=== PATIENT | female | born 1970 | race Caucasian/White ===

== ENCOUNTER 2020-08-11 14:10 | Emergency (ER) | payer OTHER, SELFPAY ==
[2020-08-11 14:19] VITALS: BP 156/92; PULSE 88; RESP 22; TEMP 36.7; O2SAT 95; BMI 37.7
--- NOTE | 2020-08-11 14:25 | XR_ITS ---
EXAMINATION: XR CHEST CLINICAL INFORMATION: Shortness of breath and cough COMPARISON: Previous chest x-rays most recent May 2020 TECHNIQUE: Frontal view of the chest was obtained. FINDINGS: The cardiac and mediastinal contours are normal. The lungs are clear. There is no pleural effusion or pneumothorax. There are mild degenerative changes of the spine. IMPRESSION: No evidence for acute disease in the chest.
--- NOTE | 2020-08-11 14:25 | ECG_ITS ---
Test Reason : SOB Blood Pressure : / mmHG Vent. Rate : 078 BPM Atrial Rate : 078 BPM P-R Int : 132 ms QRS Dur : 084 ms QT Int : 394 ms P-R-T Axes : 044 047 028 degrees QTc Int : 449 ms Normal sinus rhythm RSR' or QR pattern in V1 suggests right ventricular conduction delay Nonspecific T wave abnormality Inferior leads When compared with ECG of 15-MAY-2020 14:23, No significant change was found Referred By: Lorenzo Laurent Electronically Signed By:CHIKA SLAUGHTER MD
--- NOTE | 2020-08-11 14:48 | ED_ITS ---
HPI - Psych General Chief Complaint: Psychiatric Symptoms Stated Complaint: si w/plan Time Seen by Provider: 08/11/20 14:25 Source: EMS Mode of arrival: ambulatory Limitations: no limitations History of Present Illness HPI Narrative: 50-year-old female who is well known to this facility for multiple reasons mostly psych related however she does have history of asthma, substance abuse, bipolar disorder, depressive disorder, preferred substance abuse of crack cocaine, hypertension, gastroesophageal reflux disease along with other history as noted below presenting today via EMS with complaint of suicidal ideation. States feeling increasing the +over the past couple days and feeling suicidal. No specific triggers today but plan to walk into traffic. She denies any illicit substance use today. No fever. No chills. Did have some cough and wheezing. MD complaint: suicidal ideation and feels depressed History of same: Yes Relieving factors: none Exacerbating factors: none Treatments prior to arrival: none Related Data Allergies Allergy/AdvReac Type Severity Reaction Status Date / Time aspirin [Aspirin] Allergy Severe HIVES,THROAT Unverified 07/17/20 17:00 SWELLS bee pollen [BEE STINGS] Allergy Severe ANAPHYLAXIS Unverified 07/17/20 17:00 diphenhydramine Allergy Severe hives, Unverified 07/17/20 17:00 [From BENADRYL ALLERGY] throat swells Penicillins [PCN] Allergy Severe HIVES Unverified 07/17/20 17:00 THROAT SWELLS Sulfa (Sulfonamide Allergy Intermediate HIVES Unverified 07/17/20 17:00 Antibiotics) [SULFA (SULFONAMIDE ANTIBIOTICS)] tramadol [TRAMADOL] Allergy Intermediate ITCHING Unverified 07/17/20 17:00 latex [LATEX] Allergy Unknown UNKNOWN Unverified 07/17/20 17:00 penicillin G Allergy Unknown Verified 07/17/18 00:00 lactose [LACTOSE] AdvReac Severe DIARRHEA Unverified 07/17/20 17:00 bee stings Allergy Unknown Uncoded 07/17/18 00:00 DAIRY PRODUCTS Allergy Unknown UNKNOWN Uncoded 07/17/20 17:00 DairyCare Allergy Unknown Uncoded 07/17/18 00:00 sulfa drugs Allergy Unknown Uncoded 07/17/18 00:00 From Lactaid AdvReac Mild DIARRHEA Uncoded 07/17/20 17:00 Review of Systems Review of Systems: Constitutional: No Weight loss, No Fever, No Chills, No Night Sweats, No Fatigue, No Malaise ENT/Mouth: No Hearing loss, No Ear Pain, No Nasal Congestion, No Sinus Pain, No Hoarseness, No sore throat, No Rhinorrhea, No Swallowing Difficulty Eyes: No Eye Pain, No Swelling, No Redness, No Foreign Body, No Discharge, No Vision Changes Cardiovascular: No Chest Pain, No SOB, No Dyspnea on Exertion, No Orthopnea, No Edema, No Palpitations Respiratory: + Cough, No Sputum, + Wheezing, No Smoke Exposure, No Dyspnea Gastrointestinal: No Nausea, No Vomiting, No Diarrhea, No Constipation, No abdominal Pain, No Hematochezia, No Melena Genitourinary: no irregular bleeding, No Dysuria, No Urinary Frequency, No Hematuria, No Urinary Incontinence, No Urgency, No Flank Pain, No Urinary Flow Changes, No Hesitancy Musculoskeletal: No joint pain, No Myalgias, No Joint Swelling Skin: No Skin Lesions, No rash Neuro: No Weakness, No Numbness, No Paresthesias, No Loss of Consciousness, No Dizziness, No Headache Psych: No Anxiety/Panic, No Depression, No SI/HI/AH/VH, No Social Issues, Heme/Lymph: No Bruising, No Bleeding,No Lymphadenopathy Endocrine: No Polyuria, No Polydipsia, No Temperature Intolerance Yes all other systems are reviewed and are negative [facility] Past Medical History Attestation statement: The following information was validated with the patient. Medical History (Updated 08/11/20 @ 18:30 by Lorenzo Laurent NP) Bipolar disorder COPD (chronic obstructive pulmonary disease) Depression Social History Social History Alcohol intake: unknown Smoking Status: Unknown if ever smoked Use of substances other than those prescribed or required for medical reasons: Unknown Advance Directives: No Advance Directives Information Provided: No Physical Exam Vital Signs: Vital Signs: Vital Signs Temp Pulse Resp BP Pulse Ox 08/11/20 17:16 88 95 H 08/11/20 14:19 98.0 F 88 22 H 156/92 H 95 Body Mass Index 37.7 Const: Other: Slightly anxious appearing General: cooperative and healthy appearing; No acute distress or intoxicated appearing Nutritional Appearance: average body habitus Orientation/consciousness: patient oriented x3 HENMT: Head: Yes normal to inspection Ears: hearing grossly normal bilaterally Eyes: General: appearance normal, both eyes and all related structures Visual Rodarte: normal visual rodarte by confrontation Neck: Neck: Yes normal visual inspection and No tender Thyroid: Thyroid normal Chest: Chest palpation & inspection: normal inspection of the chest Resp: Effort & Inspection: normal respiratory effort Cardio: Jugular venous distension: no JVD GI: Inspection: Yes normal to inspection Percussion: Yes normal to percussion Auscultation: normal bowel sounds : General: Yes no CVA tenderness Back/Spine/Pelvis: Back: no CVA tenderness Skin: General skin exam: no rashes or lesions noted Neuro: General: patient oriented x3 Extrem: General: Yes normal to inspection Course Reevaluation(s) Reevaluation #1: slight 4 seconds story wheezing upon arrival more anxious. Vague SI. Workup unremarkable. Chest x-ray negative. Lung sounds clear to auscultation after neb. She was evaluated by Care Team and cleared for discharge. She denies any SI or HI. Feels much more comfortable now speaking to us. Is future oriented. Has appointment coming up with her therapist and GB. Care team will assist her in getting right back. Stable for discharge. Consultations Consultation #1: Evaluate by care team MDM - Psych Restraints Face to Face Assessment: Face to Face Assessment: Current Situation: After assessment of the patient, a review of the pertinent medical record and a discussion with nursing staff, I feel the patient requires a restrain intervention. Reaction To: [] Medical Condition: [] Behavioral State: [] Continued Need: [] Lab Data Result diagrams: 08/11/20 15:04 08/11/20 15:05 Labs: Lab Results 08/11/20 08/11/20 08/11/20 Range/Units 15:04 15:04 15:05 WBC 5.4 (4.8-10.8) X10*3/uL RBC 4.30 (4.20-5.50) X10*6/uL Hgb 12.5 (12.0-16.0) g/dl Hct 39.0 (37-47) % MCV 90.7 (80-98) fL MCH 29.1 (27.0-33.0) pg MCHC 32.1 (31.0-35.0) g/dl RDW 13.2 (11.0-16.0) % Plt Count 251 (160-400) X10*3/uL MPV 10.3 (9.4-12.3) fL Immature Gran % (Auto) 0.2 (0.0-0.4) % Neut % (Auto) 51.0 (45-73) % Lymph % (Auto) 40.3 H (20-40) % [place] % (Auto) 6.5 (2-11) % Eos % (Auto) 1.1 (0-4) % Baso % (Auto) 0.9 (0-2) % Lymph # (Auto) 2.2 (1.2-4.9) X10*3/uL [place] # (Auto) 0.4 (0.1-1.2) X10*3/uL Eos # (Auto) 0.1 (0.0-0.4) X10*3/uL Baso # (Auto) 0.1 (0.0-0.2) X10*3/uL Abs Immat Gran (auto) 0.01 (0.00-0.03) X10*3/uL Absolute Neuts (auto) 2.7 (2.0-8.3) X10*3/uL Absolute Nucleated RBC 0.000 (0.0-0.012) X10*3/uL Nucleated RBC % (auto) 0.0 (0.0-0.2) /100WBC Sodium 143 (135-145) mmol/L Potassium 4.3 (3.3-5.1) mmol/l Chloride 108 (96-108) mmol/L Carbon Dioxide 27 (22-29) mmol/L Anion Gap 12 (12-20) BUN 21 H (9-16) mg/dL Creatinine 0.69 (0.5-1.4) mg/dL Estim Creat Clear Calc 121.4 Estimated GFR > 60 Random Glucose 87 (60-115) mg/dL Calcium 9.3 (8.4-10.2) mg/dL Total Bilirubin 0.4 (0.0-1.0) mg/dL AST 14 (5-31) U/L ALT 14 (0-31) U/L Alkaline Phosphatase 81 (39-117) U/L Troponin I High Sens < 3.5 (<3.5-17.0) ng/L Total Protein 6.4 L (6.5-8.0) g/dL Albumin 4.3 (3.5-5.0) g/dL Salicylates < 5.0 L (15-30) mg/dL Urine Opiates Screen (Not Detect) Acetaminophen < 1 (<30) mcg/mL Ur Barbiturates Screen (Not Detect) Ur Phencyclidine Scrn (Not Detect) Ur Amphetamines Screen (Not Detect) U Benzodiazepines Scrn (Not Detect) Urine Cocaine Screen (Not Detect) U Marijuana (THC) Screen (Not Detect) Ethyl Alcohol mg/dL Coronavirus (PCR) (Negative) Influenza Type A (PCR) Influenza Type B (PCR) Influenza A & B Note RSV RNA Qual (PCR) 08/11/20 08/11/20 08/11/20 Range/Units 15:05 15:05 16:01 WBC (4.8-10.8) X10*3/uL RBC (4.20-5.50) X10*6/uL Hgb (12.0-16.0) g/dl Hct (37-47) % MCV (80-98) fL MCH (27.0-33.0) pg MCHC (31.0-35.0) g/dl RDW (11.0-16.0) % Plt Count (160-400) X10*3/uL MPV (9.4-12.3) fL Immature Gran % (Auto) (0.0-0.4) % Neut % (Auto) (45-73) % Lymph % (Auto) (20-40) % [place] % (Auto) (2-11) % Eos % (Auto) (0-4) % Baso % (Auto) (0-2) % Lymph # (Auto) (1.2-4.9) X10*3/uL [place] # (Auto) (0.1-1.2) X10*3/uL Eos # (Auto) (0.0-0.4) X10*3/uL Baso # (Auto) (0.0-0.2) X10*3/uL Abs Immat Gran (auto) (0.00-0.03) X10*3/uL Absolute Neuts (auto) (2.0-8.3) X10*3/uL Absolute Nucleated RBC (0.0-0.012) X10*3/uL Nucleated RBC % (auto) (0.0-0.2) /100WBC Sodium (135-145) mmol/L Potassium (3.3-5.1) mmol/l Chloride (96-108) mmol/L Carbon Dioxide (22-29) mmol/L Anion Gap (12-20) BUN (9-16) mg/dL Creatinine (0.5-1.4) mg/dL Estim Creat Clear Calc Estimated GFR Random Glucose (60-115) mg/dL Calcium (8.4-10.2) mg/dL Total Bilirubin (0.0-1.0) mg/dL AST (5-31) U/L ALT (0-31) U/L Alkaline Phosphatase (39-117) U/L Troponin I High Sens (<3.5-17.0) ng/L Total Protein (6.5-8.0) g/dL Albumin (3.5-5.0) g/dL Salicylates (15-30) mg/dL Urine Opiates Screen Not Detected (Not Detect) Acetaminophen (<30) mcg/mL Ur Barbiturates Screen Not Detected (Not Detect) Ur Phencyclidine Scrn Not Detected (Not Detect) Ur Amphetamines Screen Not Detected (Not Detect) U Benzodiazepines Scrn Not Detected (Not Detect) Urine Cocaine Screen Not Detected (Not Detect) U Marijuana (THC) Screen Not Detected (Not Detect) Ethyl Alcohol < 10 mg/dL Coronavirus (PCR) (Negative) Influenza Type A (PCR) Cancelled Influenza Type B (PCR) Cancelled Influenza A & B Note Cancelled RSV RNA Qual (PCR) Cancelled 08/11/20 Range/Units 16:01 WBC (4.8-10.8) X10*3/uL RBC (4.20-5.50) X10*6/uL Hgb (12.0-16.0) g/dl Hct (37-47) % MCV (80-98) fL MCH (27.0-33.0) pg MCHC (31.0-35.0) g/dl RDW (11.0-16.0) % Plt Count (160-400) X10*3/uL MPV (9.4-12.3) fL Immature Gran % (Auto) (0.0-0.4) % Neut % (Auto) (45-73) % Lymph % (Auto) (20-40) % [place] % (Auto) (2-11) % Eos % (Auto) (0-4) % Baso % (Auto) (0-2) % Lymph # (Auto) (1.2-4.9) X10*3/uL [place] # (Auto) (0.1-1.2) X10*3/uL Eos # (Auto) (0.0-0.4) X10*3/uL Baso # (Auto) (0.0-0.2) X10*3/uL Abs Immat Gran (auto) (0.00-0.03) X10*3/uL Absolute Neuts (auto) (2.0-8.3) X10*3/uL Absolute Nucleated RBC (0.0-0.012) X10*3/uL Nucleated RBC % (auto) (0.0-0.2) /100WBC Sodium (135-145) mmol/L Potassium (3.3-5.1) mmol/l Chloride (96-108) mmol/L Carbon Dioxide (22-29) mmol/L Anion Gap (12-20) BUN (9-16) mg/dL Creatinine (0.5-1.4) mg/dL Estim Creat Clear Calc Estimated GFR Random Glucose (60-115) mg/dL Calcium (8.4-10.2) mg/dL Total Bilirubin (0.0-1.0) mg/dL AST (5-31) U/L ALT (0-31) U/L Alkaline Phosphatase (39-117) U/L Troponin I High Sens (<3.5-17.0) ng/L Total Protein (6.5-8.0) g/dL Albumin (3.5-5.0) g/dL Salicylates (15-30) mg/dL Urine Opiates Screen (Not Detect) Acetaminophen (<30) mcg/mL Ur Barbiturates Screen (Not Detect) Ur Phencyclidine Scrn (Not Detect) Ur Amphetamines Screen (Not Detect) U Benzodiazepines Scrn (Not Detect) Urine Cocaine Screen (Not Detect) U Marijuana (THC) Screen (Not Detect) Ethyl Alcohol mg/dL Coronavirus (PCR) NEGATIVE (Negative) Influenza Type A (PCR) Influenza Type B (PCR) Influenza A & B Note RSV RNA Qual (PCR) Imaging Data Chest x-ray: Attestation: I personally reviewed and interpreted this imaging study as follows: Radiologist's impression: [address] [address] XRay Report Signed Patient: Meli Garza#: [id number] : 1970Acct:[id number] Age/Sex: 50 / FADM Date: 08/11/20 Loc: HO.ED Attending Dr: Ordering Physician: Lorenzo Laurent NP Date of Service: 08/11/20 Procedure(s): XR chest 1V Accession Number(s): [id number] cc: Lorenzo Laurent ACCOUNT ADVISOR~ EXAMINATION: XR CHEST CLINICAL INFORMATION: Shortness of breath and cough COMPARISON: Previous chest x-rays most recent May 2020 TECHNIQUE: Frontal view of the chest was obtained. FINDINGS: The cardiac and mediastinal contours are normal. The lungs are clear. There is no pleural effusion or pneumothorax. There are mild degenerative changes of the spine. IMPRESSION: No evidence for acute disease in the chest. Dictated By:MARY GAUTAM MD Signed By:<Electronically signed by MARY GAUTAM MD in OV>08/11/20 1446 DD/ 1425 TD/TT: Pulverizing And Sifting Operator: MINO Discharge Plan Discharge Clinical Impression: Bipolar disorder, Acute anxiety Patient Disposition: Home, Self-Care Instructions: Bipolar Disorder (ED), Anxiety (ED)
[2020-08-11 15:17] LABS: MANUAL DIFF FLAG NO
[2020-08-11 15:19] LABS: Basophils Absolute Auto 0.1 X10*3/uL (0.0-0.2); Basophils Percent Auto 0.9 % (0-2); Eosinophils Absolute Auto 0.1 X10*3/uL (0.0-0.4); Eosinophils Percent Auto 1.1 % (0-4); Hemoglobin 12.5 g/dl (12.0-16.0); Imm Gran Abs Auto 0.01 X10*3/uL (0.00-0.03); Imm Gran Pct Auto 0.2 % (0.0-0.4); Lymphocytes Absolute Auto 2.2 X10*3/uL (1.2-4.9); Lymphocytes Percent Auto 40.3 % (20-40); Mean Corpuscular HGB Conc 32.1 g/dl (31.0-35.0); Mean Corpuscular Hemoglobin 29.1 pg (27.0-33.0); Mean Corpuscular Volume 90.7 fL (80-98); Mean Platelet Volume 10.3 fL (9.4-12.3); Monocytes Absolute Auto 0.4 X10*3/uL (0.1-1.2); Monocytes Percent Auto 6.5 % (2-11); Neutrophils Absolute Auto 2.7 X10*3/uL (2.0-8.3); Platelet Count 251 X10*3/uL (160-400); Red Cell Distribution Width 13.2 % (11.0-16.0); White Blood Count 5.4 X10*3/uL (4.8-10.8)
[2020-08-11 15:41] LABS: Ethanol < 10 mg/dL
[2020-08-11 15:43] LABS: Amphetamine Screen Urine Not Detected (Not Detect); Barbiturates, Urine Not Detected (Not Detect); Benzodiazepines Screen Urine Not Detected (Not Detect); Cannabinoid Screen Urine Not Detected (Not Detect); Cocaine Screen Urine Not Detected (Not Detect); Opiate Screen Urine Not Detected (Not Detect); Phencyclidine Screen Urine Not Detected (Not Detect)
[2020-08-11 15:47] LABS: Troponin-I High Sensitivity < 3.5 ng/L (<3.5-17.0)
[2020-08-11 15:54] LABS: Acetaminophen LAB < 1 mcg/mL (<30); Alanine Aminotransferase 14 U/L (0-31); Albumin Level 4.3 g/dL (3.5-5.0); Alkaline Phosphatase 81 U/L (39-117); Anion Gap 12 (12-20); Aspartate Amino Transferase 14 U/L (5-31); Bilirubin Total 0.4 mg/dL (0.0-1.0); Blood Urea Nitrogen 21 mg/dL (9-16); Calcium 9.3 mg/dL (8.4-10.2); Carbon Dioxide 27 mmol/L (22-29); Chloride 108 mmol/L (96-108); Creatinine Clr Calc Pharmacy 121.4; Estimated Glomerular Filt Rate > 60; Glucose Random 87 mg/dL (60-115); Potassium 4.3 mmol/l (3.3-5.1); Sodium 143 mmol/L (135-145); Total Protein 6.4 g/dL (6.5-8.0)
[2020-08-11] MEDS: Albuterol/Iprat 2.5/0.5MG 3 ML AMPUL.NEB INHALE (15:54)
[2020-08-11 16:08] LABS: Salicylate < 5.0 mg/dL (15-30)
[2020-08-11 17:04] LABS: SARS COV2 PCR INHOUSE NEGATIVE (Negative)
[2020-08-11 17:16] VITALS: PULSE 88; RESP 95
--- NOTE | 2020-08-11 17:57 | PC.NURSE ---
Ambulatory to 13h. wheezy and sob while ambulating. sa o2 93% just after ambulating. risees to 96% on room air whie at rest. recovers quickly. NC HELD. AWAITING BED IN THE POD. CALM AND COOPERATIVE. SITTER AT BEDSIDE.
--- NOTE | 2020-08-11 18:29 | MHC.CARE ---
CARE team consult requested for 50 year old female who presented to ED endorsing shortness of breath and suicidal ideation secondary to conflict with family. 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 Pt stated that she felt crummy earlier, but is feeling much better now after receiving a breathing treatment and having some time to think about the situation. Pt denied any current thoughts of or suicide, and denied recent urges to attempts to harm self or others. Pt's housing is considered stable at this time and pt is connected with outpatient behavioral health supports through [facility]. Pt has been compliant with medications and feels that her medications are effective. Pt has an appt with her psychiatrist (Dr. Recinos) next week and plans to contact her therapist (Chante Miller) to schedule a session as she hasn't spoken with her since before the therapist went on vacation. Pt feels comfortable returning home at this time. ED provider was consulted and is in agreement with the decision to discharge pt home. Edmundo Aranda contacted, cab arrival around 7:30, voucher completed, and pt will discharge to waiting room.
== END 2020-08-11 19:08 | disposition home or self-care (01) ==
PROVIDERS: Nurse Practitioner Primary Care; Emergency Provider Internal Medicine; PCP Internal Medicine
DX: F31.9 Bipolar disorder, unspecified (principal); F41.9 Anxiety disorder, unspecified; R06.02 Shortness of breath; Z20.828 Contact with and (suspected) exposure to other viral communicable diseases; F14.10 Cocaine abuse, uncomplicated
CPT/HCPCS: 36415; 71045; 80053; 80307; 80320; 84484; 85025; 87635; 93005; 99284; G0480

== ENCOUNTER 2020-10-07 14:35 | Inpatient (IN) | payer MEDICAID, OTHER, SELFPAY ==
[2020-10-07] VITALS (7 sets, daily range): BP systolic 109–162; BP diastolic 63–85; PULSE 71–82; RESP 16–20; TEMP 36.8–36.9; O2SAT 90–100; BMI 37.4
--- NOTE | 2020-10-07 14:42 | ECG_ITS ---
Test Reason : OVERDOSE Blood Pressure : / mmHG Vent. Rate : 076 BPM Atrial Rate : 076 BPM P-R Int : 154 ms QRS Dur : 084 ms QT Int : 388 ms P-R-T Axes : 037 018 009 degrees QTc Int : 436 ms Normal sinus rhythm Nonspecific T wave abnormality Abnormal ECG When compared with ECG of 11-AUG-2020 14:45, Nonspecific T wave abnormality, worse in Anterior leads Referred By: Arina Polanco Electronically Signed By:ALEJANDRO MCCLELLAN
--- NOTE | 2020-10-07 14:46 | ED_ITS ---
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 Denies any other drugs/substance or EtOH ingestion. Patient reports SI and HI. Admits to feeling fatigued at present, and also chronic SOB and chronic cough. Denies fever, chills, nausea/vomiting, abdominal pain, recent travel, LE edema. MD complaint: suicidal ideation, feels depressed and homicidal ideation Related Data Allergies Allergy/AdvReac Type Severity Reaction Status Date / Time aspirin [Aspirin] Allergy Severe HIVES,THROAT Unverified 07/17/20 17:00 SWELLS bee pollen [BEE STINGS] Allergy Severe ANAPHYLAXIS Unverified 07/17/20 17:00 diphenhydramine Allergy Severe hives, Unverified 07/17/20 17:00 [From BENADRYL ALLERGY] throat swells Penicillins [PCN] Allergy Severe HIVES Unverified 07/17/20 17:00 THROAT SWELLS Sulfa (Sulfonamide Allergy Intermediate HIVES Unverified 07/17/20 17:00 Antibiotics) [SULFA (SULFONAMIDE ANTIBIOTICS)] tramadol [TRAMADOL] Allergy Intermediate ITCHING Unverified 07/17/20 17:00 latex [LATEX] Allergy Unknown UNKNOWN Unverified 07/17/20 17:00 penicillin G Allergy Unknown Verified 07/17/18 00:00 lactose [LACTOSE] AdvReac Severe DIARRHEA Unverified 07/17/20 17:00 bee stings Allergy Unknown Uncoded 07/17/18 00:00 DAIRY PRODUCTS Allergy Unknown UNKNOWN Uncoded 07/17/20 17:00 DairyCare Allergy Unknown Uncoded 07/17/18 00:00 sulfa drugs Allergy Unknown Uncoded 07/17/18 00:00 From Lactaid AdvReac Mild DIARRHEA Uncoded 07/17/20 17:00 Review of Systems Review of Systems: Constitutional: No Weight loss, No Fever, No Chills, +Fatigue, + Malaise Cardiovascular: No Chest Pain, +chronic SOB, No Dyspnea on Exertion, No Edema Respiratory: +chronic Cough, No Sputum, No Wheezing Gastrointestinal: No Nausea, No Vomiting, No Diarrhea, No Constipation, No Abdominal pain Genitourinary: No irregular bleeding, No Dysuria, No Urinary Frequency, No Hematuria Musculoskeletal: No joint pain, No Myalgias, No Joint Swelling Skin: No Skin Lesions, No rash Psych: No Anxiety/Panic, +Depression, + SI/HI Yes all other systems are reviewed and are negative [facility] Past Medical History Attestation statement: The following information was validated with the patient. Medical History (Updated 10/07/20 @ 15:12 by LASHONDA Diamond) Bipolar disorder COPD (chronic obstructive pulmonary disease) Depression Social History Social History Alcohol intake: unknown Smoking Status: Unknown if ever smoked Smoked in Last 30 Days: No Use of substances other than those prescribed or required for medical reasons: No Advance Directives: No Advance Directives Information Provided: Yes Physical Exam Vital Signs: Vital Signs: Last Vital Signs Temp 98.4 F 10/07/20 14:40 Pulse 78 10/07/20 15:08 Resp 16 10/07/20 14:40 BP 134/83 10/07/20 14:40 Pulse Ox 100 10/07/20 14:40 Body Mass Index 37.4 Const: Other: uncooperative Orientation/consciousness: patient oriented x3 Limitations: no limitations HENMT: Head: Yes normal to inspection Ears: hearing grossly normal bilaterally General nose exam: Normal external nose present Face and sinus: Yes normal facial exam Eyes: General: appearance normal, both eyes and all related structures EOM: EOMs intact bilaterally Neck: Neck: Yes normal visual inspection and Yes no meningeal signs Resp: Other: coarse lung sounds Effort & Inspection: normal respiratory effort Auscultation: clear to auscultation bilaterally and wheezes expiratory wheezes and scattered wheezes Cardio: Rate: regular rate Heart sounds: S1 normal heart sound present and S2 normal heart sound present GI: Inspection: Yes normal to inspection Palpation (GI): Soft to palpation, nontender, no guarding and not rigid Skin: Rashes: no rashes Wounds: no wounds Neuro: General: patient oriented x3 and no meningeal signs Gait exam (Neuro): Normal gait present Extrem: General: Yes normal to inspection Psych: Thought content: Suicidality present, Homicidality present and Depressive thoughts present Course Course Course Narrative: -1505--patient refusing activated charcoal, multiple attempts/different people tried discussing with patient to convince her to take activated charcoal but unsuccessful -Labs unremarkable, salicylates and ethanol negative, acetaminophen pending --1700--ED care transferred to LASHONDA zhou pending acetaminophen level, repeat acetaminophen level 4 hours after ingestion, and BHN evaluation MDM - Psych Restraints Face to Face Assessment: 50-year-old female w/PMHx asthma, substance abuse, bipolar disorder, depressive disorder, substance abuse, HTN, GERD, BIBA s/p suicide attempt with an overdose on 15, 500mg of Tylenol twenty 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 +SI + HI. Also chronic SOB and chronic cough. On exam VSS, NAD, lungs with coarse sounds and expiratory wheeze, abdomen soft/non-tender. Concern for Tylenol OD vs polysubstance abuse. Concern for COPD exacerbation. R/o PNA. Low concern for COVID-19 with negative test 2 months ago Plan: EKG, labs, UA, JOE, CXR, Duoneb, Tylenol/Salicylates, activated charcoal, Repeat Tylenol level in 4hrs Lab Data Result diagrams: 10/07/20 15:47 10/07/20 15:47 Labs: Lab Results 10/07/20 10/07/20 10/07/20 Range/Units 15:46 15:47 15:47 WBC 7.2 (4.8-10.8) X10*3/uL RBC 4.84 (4.20-5.50) X10*6/uL Hgb 14.4 (12.0-16.0) g/dl Hct 43.6 (37-47) % MCV 90.1 (80-98) fL MCH 29.8 (27.0-33.0) pg MCHC 33.0 (31.0-35.0) g/dl RDW 12.5 (11.0-16.0) % Plt Count 262 (160-400) X10*3/uL MPV 10.3 (9.4-12.3) fL Immature Gran % (Auto) 0.3 (0.0-0.4) % Neut % (Auto) 50.5 (45-73) % Lymph % (Auto) 41.5 H (20-40) % [place] % (Auto) 6.6 (2-11) % Eos % (Auto) 0.4 (0-4) % Baso % (Auto) 0.7 (0-2) % Lymph # (Auto) 3.0 (1.2-4.9) X10*3/uL [place] # (Auto) 0.5 (0.1-1.2) X10*3/uL Eos # (Auto) 0.0 (0.0-0.4) X10*3/uL Baso # (Auto) 0.1 (0.0-0.2) X10*3/uL Abs Immat Gran (auto) 0.02 (0.00-0.03) X10*3/uL Absolute Neuts (auto) 3.6 (2.0-8.3) X10*3/uL Absolute Nucleated RBC 0.000 (0.0-0.012) X10*3/uL Nucleated RBC % (auto) 0.0 (0.0-0.2) /100WBC Hold Blue Top Sodium 139 (135-145) mmol/L Potassium 4.2 (3.3-5.1) mmol/l Chloride 103 (96-108) mmol/L Carbon Dioxide 25 (22-29) mmol/L Anion Gap 15 (12-20) BUN 15 (9-16) mg/dL Creatinine 0.67 (0.5-1.4) mg/dL Estim Creat Clear Calc 120.3 Estimated GFR > 60 Random Glucose 116 H (60-115) mg/dL Calcium 9.3 (8.4-10.2) mg/dL Magnesium 2.0 (1.6-2.6) mg/dL Total Bilirubin 0.3 (0.0-1.0) mg/dL Direct Bilirubin < 0.2 (0.0-0.5) mg/dL AST 15 (5-31) U/L ALT 17 (0-31) U/L Alkaline Phosphatase 88 (39-117) U/L Total Protein 7.0 (6.5-8.0) g/dL Albumin 4.5 (3.5-5.0) g/dL Lipase 31 (8-78) U/L Salicylates < 5.0 L (15-30) mg/dL Urine Opiates Screen Not Detected (Not Detect) Ur Barbiturates Screen Not Detected (Not Detect) Ur Phencyclidine Scrn Not Detected (Not Detect) Ur Amphetamines Screen Not Detected (Not Detect) U Benzodiazepines Scrn Not Detected (Not Detect) Urine Cocaine Screen Not Detected (Not Detect) U Marijuana (THC) Screen Not Detected (Not Detect) Ethyl Alcohol mg/dL COVID-19 (ENDY) (Negative) COVID-19 Clin Com 10/07/20 10/07/20 10/07/20 Range/Units 15:47 15:47 15:51 WBC (4.8-10.8) X10*3/uL RBC (4.20-5.50) X10*6/uL Hgb (12.0-16.0) g/dl Hct (37-47) % MCV (80-98) fL MCH (27.0-33.0) pg MCHC (31.0-35.0) g/dl RDW (11.0-16.0) % Plt Count (160-400) X10*3/uL MPV (9.4-12.3) fL Immature Gran % (Auto) (0.0-0.4) % Neut % (Auto) (45-73) % Lymph % (Auto) (20-40) % [place] % (Auto) (2-11) % Eos % (Auto) (0-4) % Baso % (Auto) (0-2) % Lymph # (Auto) (1.2-4.9) X10*3/uL [place] # (Auto) (0.1-1.2) X10*3/uL Eos # (Auto) (0.0-0.4) X10*3/uL Baso # (Auto) (0.0-0.2) X10*3/uL Abs Immat Gran (auto) (0.00-0.03) X10*3/uL Absolute Neuts (auto) (2.0-8.3) X10*3/uL Absolute Nucleated RBC (0.0-0.012) X10*3/uL Nucleated RBC % (auto) (0.0-0.2) /100WBC Hold Blue Top SEE NOTE Sodium (135-145) mmol/L Potassium (3.3-5.1) mmol/l Chloride (96-108) mmol/L Carbon Dioxide (22-29) mmol/L Anion Gap (12-20) BUN (9-16) mg/dL Creatinine (0.5-1.4) mg/dL Estim Creat Clear Calc Estimated GFR Random Glucose (60-115) mg/dL Calcium (8.4-10.2) mg/dL Magnesium (1.6-2.6) mg/dL Total Bilirubin (0.0-1.0) mg/dL Direct Bilirubin (0.0-0.5) mg/dL AST (5-31) U/L ALT (0-31) U/L Alkaline Phosphatase (39-117) U/L Total Protein (6.5-8.0) g/dL Albumin (3.5-5.0) g/dL Lipase (8-78) U/L Salicylates (15-30) mg/dL Urine Opiates Screen (Not Detect) Ur Barbiturates Screen (Not Detect) Ur Phencyclidine Scrn (Not Detect) Ur Amphetamines Screen (Not Detect) U Benzodiazepines Scrn (Not Detect) Urine Cocaine Screen (Not Detect) U Marijuana (THC) Screen (Not Detect) Ethyl Alcohol < 10 mg/dL COVID-19 (ENDY) Negative (Negative) COVID-19 Clin Com See Note Discharge Plan Discharge Clinical Impression: Suicide attempt, Homicidal ideations
--- NOTE | 2020-10-07 14:56 | XR_ITS ---
EXAMINATION: XR CHEST CLINICAL INFORMATION: Shortness of breath COMPARISON: Previous chest x-ray July 2020 TECHNIQUE: Frontal view of the chest was obtained. FINDINGS: The cardiac and mediastinal contours are normal. The lungs are clear. There is no pleural effusion or pneumothorax. There are degenerative changes of the spine. XR/XR chest 1V IMPRESSION: No evidence for acute disease in the chest.
[2020-10-07] MEDS: Albuterol/Iprat 2.5/0.5MG 3 ML AMPUL.NEB INHALE (15:06)
--- NOTE | 2020-10-07 15:50 | PC.NURSE ---
patient refused medication, provider aware.
[2020-10-07 16:03] LABS: MANUAL DIFF FLAG NO
[2020-10-07 16:07] LABS: Basophils Absolute Auto 0.1 X10*3/uL (0.0-0.2); Basophils Percent Auto 0.7 % (0-2); Eosinophils Percent Auto 0.4 % (0-4); Hematocrit 43.6 % (37-47); Hemoglobin 14.4 g/dl (12.0-16.0); Imm Gran Abs Auto 0.02 X10*3/uL (0.00-0.03); Imm Gran Pct Auto 0.3 % (0.0-0.4); Lymphocytes Percent Auto 41.5 % (20-40); Mean Corpuscular Hemoglobin 29.8 pg (27.0-33.0); Mean Corpuscular Volume 90.1 fL (80-98); Mean Platelet Volume 10.3 fL (9.4-12.3); Monocytes Absolute Auto 0.5 X10*3/uL (0.1-1.2); Monocytes Percent Auto 6.6 % (2-11); Neutrophils Absolute Auto 3.6 X10*3/uL (2.0-8.3); Neutrophils Percent Auto 50.5 % (45-73); Platelet Count 262 X10*3/uL (160-400); Red Blood Count 4.84 X10*6/uL (4.20-5.50); Red Cell Distribution Width 12.5 % (11.0-16.0); White Blood Count 7.2 X10*3/uL (4.8-10.8)
[2020-10-07 16:21] LABS: COVID-19 Test Negative (Negative); IDNOW Serial# 9DD0AD1C
[2020-10-07 16:31] LABS: Ethanol < 10 mg/dL
[2020-10-07 16:36] LABS: Amphetamine Screen Urine Not Detected (Not Detect); Barbiturates, Urine Not Detected (Not Detect); Benzodiazepines Screen Urine Not Detected (Not Detect); Cannabinoid Screen Urine Not Detected (Not Detect); Cocaine Screen Urine Not Detected (Not Detect); Opiate Screen Urine Not Detected (Not Detect); Phencyclidine Screen Urine Not Detected (Not Detect)
[2020-10-07 16:47] LABS: Alanine Aminotransferase 17 U/L (0-31); Albumin Level 4.5 g/dL (3.5-5.0); Alkaline Phosphatase 88 U/L (39-117); Anion Gap 15 (12-20); Aspartate Amino Transferase 15 U/L (5-31); Bilirubin Direct < 0.2 mg/dL (0.0-0.5); Bilirubin Total 0.3 mg/dL (0.0-1.0); Blood Urea Nitrogen 15 mg/dL (9-16); Calcium 9.3 mg/dL (8.4-10.2); Carbon Dioxide 25 mmol/L (22-29); Chloride 103 mmol/L (96-108); Creatinine Clr Calc Pharmacy 120.3; Estimated Glomerular Filt Rate > 60; Glucose Random 116 mg/dL (60-115); Lipase 31 U/L (8-78); Potassium 4.2 mmol/l (3.3-5.1); Salicylate < 5.0 mg/dL (15-30); Sodium 139 mmol/L (135-145)
[2020-10-07 17:13] LABS: Acetaminophen LAB 66 mcg/mL (<30)
[2020-10-07] MEDS: 0.9 % Sodium Chloride 1,000 ML 999 ML IVCONT (17:46)
[2020-10-07 18:03] LABS: Prothrombin Time 11.7 SEC (10.8-13.0)
[2020-10-07 18:05] LABS: Partial Thromboplastin Time 24.8 SEC (24.1-38.0)
[2020-10-07 18:08] LABS: UPreg QC Valid YES; Urine Pregnancy NEGATIVE (NEGATIVE)
[2020-10-07] MEDS: Metoclopramide HCl 10 MG/2 ML VIAL IVPUSH (18:44)
[2020-10-07 19:54] LABS: Acetaminophen LAB 18 mcg/mL (<30)
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
--- NOTE | 2020-10-07 21:00 | PC.NURSE ---
per poision control, due to pt having ingested tylenol longer than 4hrs, patient is considered non-toxic and is now cleared to psych. karina moran is in agreement.
--- NOTE | 2020-10-07 21:03 | PC.NURSE ---
report faxed to n
--- NOTE | 2020-10-07 21:07 | PC.NURSE ---
julian called and still waiting to receive the fax at this time per Rafael.
--- NOTE | 2020-10-07 21:42 | PC.NURSE ---
recalled [facility] to check to see if report has been received, on hold for long time. will try back,
--- NOTE | 2020-10-07 21:50 | PC.NURSE ---
fax received. and confirmed.
--- NOTE | 2020-10-07 23:02 | PC.NURSE ---
pt sleeping sitter present. skin pink warm and dry, no s/s of resp distress.
[2020-10-08 00:30] VITALS: BP 101/57; PULSE 65; RESP 16; O2SAT 91
--- NOTE | 2020-10-08 01:31 | MHC.CARE ---
10/07/2020 @ 23:15 CARE team followed up with [facility] re: pt being referred for evaluation earlier in the evening. [facility] staff, Isabel, reported that in their shift change note that it was documented that pt had been medically admitted to the hospital. This screen writer corrected the information, insisting that the pt was sleeping soundly in the ED, medically cleared, and ready for assessment. Isabel reported that she would follow up with the furnace process supervisor about a clinician being assigned to evaluate the pt. then would call the ED to update re: estimated arrival for a clinician. 10/08/2020 @ 1:15 CARE team contacted [facility] again, after having not heard back, to inquire about the status of pt being assigned a clinician for evaluation. Jud answered, and after a long period of time on hold reported that the furnace process supervisor would have a clinician contact the ED to speak with the pt's nurse and come for assessment.
[2020-10-08 04:56] VITALS: BP 115/73; PULSE 66; RESP 16; TEMP 36.9; O2SAT 93
--- NOTE | 2020-10-08 05:16 | PC.NURSE ---
nurse to nurse report given to anish bundy in the pod. pt is medically cleared to be moved to [facility]
--- NOTE | 2020-10-08 07:22 | PC.NURSE ---
pt report taken from smitha vazquez rn. pt brought in yesterday via ambulance for stated overdose of 15 500 mg tylenol. sdection 12 by pd. Pt worked up in Main ed and sent to pod after med clearance. Pt eating breakfast at this time. Overall in good spirits. Pt states meds have been getting filled at [facility] on [address] in [place]. Will confirm. Pt currently in nad at this time. N aware of patient and will see patient today. Unknown ETA.
[2020-10-08 08:00] VITALS: BP 133/72; PULSE 75; RESP 15; TEMP 37.2; O2SAT 94
--- NOTE | 2020-10-08 08:29 | PC.NURSE ---
[facility] at bedside
--- NOTE | 2020-10-08 08:58 | PC.NURSE ---
pharmacy called and aware of need for med reconciliation
--- NOTE | 2020-10-08 11:27 | PC.NURSE ---
pt to bathroom to shower.
--- NOTE | 2020-10-08 11:29 | PC.NURSE ---
plan for patient to go to [facility]
[2020-10-08 12:23] VITALS: BP 120/72; PULSE 72; RESP 20; TEMP 36.3; O2SAT 92
--- NOTE | 2020-10-08 13:36 | PC.NURSE ---
pt ate 100% of lunch. back to sleep
--- NOTE | 2020-10-08 16:22 | PC.NURSE ---
Patient in her room watching TV, calm and quiet, RN to RN report completed, no distress observed/reported, will continue to monitor.
[2020-10-08 18:58] VITALS: BMI 39.1
[2020-10-08 19:46] VITALS: BP 127/58; PULSE 85; RESP 18; TEMP 36.7
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
[2020-10-08] MEDS: Milk of Magnesia 30 ML ORAL.SUSP PO (21:08)
[2020-10-08] MEDS: Acetaminophen 325 MG TABLET 650 MG PO (21:08)
[2020-10-08] MEDS: Triamcinolone Acet 0.5 % Cream 15 GM TUBE 1 APPL TOPICAL (21:28)
[2020-10-08 21:44] VITALS: BP 127/58; PULSE 85
[2020-10-08] MEDS: Prazosin HCL 1 MG CAPSULE PO (21:44)
[2020-10-09 06:00] VITALS: BP 120/66; PULSE 88; TEMP 36.6
[2020-10-09] MEDS: Sertraline HCL 50 MG TABLET PO (08:56)
[2020-10-09] MEDS: Omeprazole 20 MG CAPSULE.DR PO (08:56)
[2020-10-09] MEDS: Acetaminophen 325 MG TABLET 650 MG PO (08:58)
[2020-10-09] MEDS: Triamcinolone Acet 0.5 % Cream 15 GM TUBE 1 APPL TOPICAL ×2 (10:35→20:14)
[2020-10-09] MEDS: Albuterol Sulfate 90 MCG 8 GM INHALER 2 PUFF INHALE (10:36)
[2020-10-09] MEDS: QUEtiapine Fumarate 50 MG TABLET PO ×3 (11:02→21:45)
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
[2020-10-09 18:00] VITALS: BP 128/66; PULSE 90; TEMP 35.9
[2020-10-09] MEDS: traZODone HCL 50 MG TABLET PO (21:28)
[2020-10-09] MEDS: Lithium Carbonate ER 300 MG TABLET.ER PO (21:45)
[2020-10-09 23:29] LABS: Carbamazepine Tegretol < 2.0 mcg/mL (5.0-12.0)
[2020-10-10 06:20] VITALS: BP 121/64; PULSE 74; RESP 18; TEMP 36.2; O2SAT 95
[2020-10-10] MEDS: Triamcinolone Acet 0.5 % Cream 15 GM TUBE 1 APPL TOPICAL ×2 (08:50→21:35)
[2020-10-10] MEDS: Lithium Carbonate ER 300 MG TABLET.ER PO ×2 (08:50→20:18)
[2020-10-10] MEDS: Sertraline HCL 50 MG TABLET PO (08:50)
[2020-10-10] MEDS: Omeprazole 20 MG CAPSULE.DR PO (08:50)
[2020-10-10] MEDS: Albuterol Sulfate 90 MCG 8 GM INHALER 2 PUFF INHALE (08:50)
--- NOTE | 2020-10-10 10:22 | HO.PSYCHPN ---
Subjective Subjective Date of Service: 10/10/20 Reason For Visit: Depression? OD sub abuse Subjective Notes: Conditional Voluntary Interim History: PATIENT TENDS TO BE PROVOCATIVE DIFFICULT TO EVALUATE HAS A FULL RANGE OF AFFECT CAN BE LABILE WAS NEGATIVE FOR DRUGS DENIES ACTIVE SI OR HI BUT QUITE IMPULSIVE BY HISTORY WAS NOT TAKING MEDICATIONS OUTPATIENT STATES SHE HAS BEEN SOBER Mental Status Exam Mental Status Exam Patient Appearance: Unkempt Patient Orientation: Person, Place, Time and Situation Level of Consciousness: Awake Patient Behavior: Appropriate Mood Description: Depressed, Anxious, Labile and Angry Affect Description: Fearful, Labile and Angry Ability to Follow Directions: Fair Memory Description: Intact Hallucinations: None Delusions: Not Present Thought Content: positive for [place] Depressive Symptoms: Increased Anxiety, Increased Irritability and Difficulty Concentrating Abnormal Motor Activity Signs and Symptoms: Agitation Judgement: Poor Judgement and Insight: patient asking FOR HELP Diagnostics Vital Signs (24Hr): Vital Signs - 24 hr 10/09/20 18:00 10/10/20 06:20 Temperature 96.6 F L 97.1 F Pulse Rate 90 74 Respiratory Rate 18 Blood Pressure 128/66 121/64 Pulse Oximetry 95 Body Mass Index 39.1 Labs Results: 10/07/20 15:47 10/07/20 15:47 Labs: Laboratory Results - last 48 hr 10/09/20 22:17 Carbamazepine < 2.0 L* Imaging Radiology Impressions: ITS Impressions Chest X-Ray 10/07/20 14:56 IMPRESSION: No evidence for acute disease in the chest. Medications Medications Current Medications Generic Name Dose Route Start Last Admin Trade Name Freq PRN Reason Stop Dose Admin Acetaminophen 650 mg 10/08/20 20:30 10/09/20 08:58 Acetaminophen 325 Mg Tablet PO 650 mg Q6H PRN Administration Headache/Pain Mild Scale (1-3) Al Hydroxide/Mg Hydroxide 30 ml 10/08/20 20:30 Magnesium Hydrox/Alum Hydrox 30 Ml Oral.Susp PO Q6H PRN Heartburn/Nausea Albuterol Sulfate 2 puff 10/08/20 20:31 10/10/20 08:50 Albuterol Sulfate 90 Mcg 8 Gm Inhaler INHALE 2 puff QID PRN Administration Shortness Of Breath Or Wheezing Doxycycline Hyclate 100 mg 10/08/20 21:00 10/10/20 08:50 Doxycycline Hyclate 100 Mg Tablet PO 100 mg BID TEJA Administration Hydroxyzine HCl 25 mg 10/08/20 20:30 Hydroxyzine Hcl 25 Mg Tablet PO BEDTIME PRN Anxiety [place] Carbonate 300 mg 10/09/20 21:20 10/10/20 08:50 [place] Carbonate Er 300 Mg Tablet.Er PO 300 mg BID TEJA Administration Magnesium Hydroxide 30 ml 10/08/20 20:30 10/08/20 21:08 Milk Of Magnesia 30 Ml Oral.Susp PO 30 ml DAILY PRN Administration Constipation Nicotine Polacrilex 4 mg 10/08/20 20:47 10/08/20 21:08 Nicotine Polacrilex 4 Mg Lozenge BUCCAL 4 mg Q2H PRN Administration Nicotine Cravings Non-Formulary Medication 1 inhalation 10/08/20 21:00 Fluticasone Propion-Salmeterol [Airduo Respiclick] INHALE BID TEJA Omeprazole 20 mg 10/09/20 09:00 10/10/20 08:50 Omeprazole 20 Mg Capsule.Dr PO 20 mg DAILY TEJA Administration Pharmacy Consult 1 each 10/08/20 08:39 Consult Rx Perform Med Rec MISCELLANE ONCE PRN Consult order Prazosin HCl 1 mg 10/08/20 20:31 10/08/20 21:44 Prazosin Hcl 1 Mg Capsule PO 1 mg BEDTIME PRN Administration nightmare Protocol Quetiapine Fumarate 50 mg 10/08/20 20:31 10/09/20 11:02 Quetiapine Fumarate 50 Mg Tablet PO 50 mg BEDTIME PRN Administration Insomnia Quetiapine Fumarate 50 mg 10/09/20 11:48 10/09/20 11:02 Quetiapine Fumarate 50 Mg Tablet PO 50 mg Q4H PRN Administration anxiety/restlessness Quetiapine Fumarate 50 mg 10/09/20 21:20 10/09/20 21:45 Quetiapine Fumarate 50 Mg Tablet PO 50 mg BEDTIME TEJA Administration Sertraline HCl 50 mg 10/09/20 09:00 10/10/20 08:50 Sertraline Hcl 50 Mg Tablet PO 50 mg DAILY TEJA Administration Trazodone HCl 50 mg 10/08/20 20:30 10/09/20 21:28 Trazodone Hcl 50 Mg Tablet PO 50 mg BEDTIME PRN Administration Insomnia Triamcinolone Acetonide 1 appl 10/08/20 21:00 10/10/20 08:50 Triamcinolone Acet 0.5 % Cream 15 Gm Tube TOPICAL 1 appl BID TEJA Administration Protocol Valacyclovir HCl 1,000 mg 10/08/20 21:00 10/10/20 08:50 Valacycyclovir Hcl 1,000 Mg Tablet PO 1,000 mg BID TEJA Administration Allergies Allergies Allergy/AdvReac Type Severity Reaction Status Date / Time aspirin [Aspirin] Allergy Severe HIVES,THROAT Unverified 07/17/20 17:00 SWELLS bee pollen [BEE STINGS] Allergy Severe ANAPHYLAXIS Unverified 07/17/20 17:00 diphenhydramine Allergy Severe hives, Unverified 07/17/20 17:00 [From BENADRYL ALLERGY] throat swells Penicillins [PCN] Allergy Severe HIVES Unverified 07/17/20 17:00 THROAT SWELLS Sulfa (Sulfonamide Allergy Intermediate HIVES Unverified 07/17/20 17:00 Antibiotics) [SULFA (SULFONAMIDE ANTIBIOTICS)] tramadol [TRAMADOL] Allergy Intermediate ITCHING Unverified 07/17/20 17:00 latex [LATEX] Allergy Unknown UNKNOWN Unverified 07/17/20 17:00 penicillin G Allergy Unknown Unknown Verified 10/09/20 11:01 bee stings Allergy Unknown Unknown Uncoded 10/09/20 11:01 DairyCare Allergy Unknown Unknown Uncoded 10/09/20 11:01 sulfa drugs Allergy Unknown Unknown Uncoded 10/09/20 11:01 From Lactaid AdvReac Mild DIARRHEA Uncoded 07/17/20 17:00 Assessment & Plan Assessment & Plan (1) Borderline personality disorder: Status: Acute Code(s): F60.3 - Borderline personality disorder (2) Bipolar disorder: Status: Acute Code(s): F31.9 - Bipolar disorder, unspecified Assessment and Plan: LITHIUM RESTARTED SEROQUEL MONITOR SAFETY OF HERSELF AND OTHERS DISCHARGE PLANNING PATIENT HAS BURNED MANY BRIDGES BECAUSE OF LACK OF OUTPATIENT COMPLIANCE Greater than 50% of the session was spent on counseling and/or coordination of care Patient educated on: medication risk/benefits Informed Consent: further education needed Reason for contiued inpatient stay Substantial Risk for: harm to self, harm to others and rapid decompensation
[2020-10-10] MEDS: QUEtiapine Fumarate 50 MG TABLET PO ×3 (12:15→20:46)
[2020-10-10] MEDS: Flu Vacc QS2020-21(6mos up)/PF 0.5 ML SYRINGE IM (13:24)
--- NOTE | 2020-10-10 13:29 | PC.NURSE ---
o.5ml flu vaccine administered to left deltoid
[2020-10-10 18:00] VITALS: BP 115/60; PULSE 68; TEMP 36.6
[2020-10-10] MEDS: hydrOXYzine HCL 25 MG TABLET PO (20:18)
[2020-10-10] MEDS: Acetaminophen 325 MG TABLET 650 MG PO (20:45)
[2020-10-11 06:20] VITALS: BP 110/71; PULSE 66; RESP 18; TEMP 36.9; O2SAT 94
--- NOTE | 2020-10-11 07:30 | P.PNPSI_ITS ---
Subjective Subjective Date of Service: 10/11/20 Reason For Visit: Depression? OD sub abuse Interim History: Reports more stable mood. Kept calm despite intrusive male pt. appears to be in pain from arthritis but is allergic to NSAIDS// ASA Review of Systems Review of Systems Constitutional: No Weight loss, No Fever, No Chills, +Fatigue, + Malaise Cardiovascular: No Chest Pain, +chronic SOB, No Dyspnea on Exertion, No Edema Respiratory: +chronic Cough, No Sputum, No Wheezing Gastrointestinal: No Nausea, No Vomiting, No Diarrhea, No Constipation, No Abdominal pain Genitourinary: No irregular bleeding, No Dysuria, No Urinary Frequency, No Hematuria Musculoskeletal: No joint pain, No Myalgias, No Joint Swelling Skin: No Skin Lesions, No rash Psych: No Anxiety/Panic, +Depression, + SI/HI Mental Status Exam Mental Status Exam Patient Appearance: Unkempt Patient Orientation: Person, Place, Time and Situation Level of Consciousness: Awake Patient Behavior: Appropriate Mood Description: Depressed, Anxious, Labile and Angry Affect Description: Fearful, Labile and Angry Ability to Follow Directions: Fair Memory Description: Intact Diagnostics Vital Signs (24Hr): Vital Signs - 24 hr 10/10/20 18:00 10/11/20 06:20 Temperature 97.8 F 98.4 F Pulse Rate 68 66 Respiratory Rate 18 Blood Pressure 115/60 110/71 Pulse Oximetry 94 Body Mass Index 39.1 Labs Results: 10/07/20 15:47 10/07/20 15:47 Labs: Laboratory Results - last 48 hr 10/09/20 22:17 Carbamazepine < 2.0 L* Imaging Radiology Impressions: ITS Impressions Chest X-Ray 10/07/20 14:56 IMPRESSION: No evidence for acute disease in the chest. Medications Medications Current Medications Generic Name Dose Route Start Last Admin Trade Name Freq PRN Reason Stop Dose Admin Acetaminophen 650 mg 10/08/20 20:30 10/10/20 20:45 Acetaminophen 325 Mg Tablet PO 650 mg Q6H PRN Administration Headache/Pain Mild Scale (1-3) Al Hydroxide/Mg Hydroxide 30 ml 10/08/20 20:30 Magnesium Hydrox/Alum Hydrox 30 Ml Oral.Susp PO Q6H PRN Heartburn/Nausea Albuterol Sulfate 2 puff 10/08/20 20:31 10/10/20 08:50 Albuterol Sulfate 90 Mcg 8 Gm Inhaler INHALE 2 puff QID PRN Administration Shortness Of Breath Or Wheezing Doxycycline Hyclate 100 mg 10/08/20 21:00 10/10/20 20:17 Doxycycline Hyclate 100 Mg Tablet PO 100 mg BID TEJA Administration Hydroxyzine HCl 25 mg 10/08/20 20:30 10/10/20 20:18 Hydroxyzine Hcl 25 Mg Tablet PO 25 mg BEDTIME PRN Administration Anxiety [place] Carbonate 300 mg 10/09/20 21:20 10/10/20 20:18 [place] Carbonate Er 300 Mg Tablet.Er PO 300 mg BID TEJA Administration Magnesium Hydroxide 30 ml 10/08/20 20:30 10/08/20 21:08 Milk Of Magnesia 30 Ml Oral.Susp PO 30 ml DAILY PRN Administration Constipation Nicotine Polacrilex 4 mg 10/08/20 20:47 10/08/20 21:08 Nicotine Polacrilex 4 Mg Lozenge BUCCAL 4 mg Q2H PRN Administration Nicotine Cravings Non-Formulary Medication 1 inhalation 10/08/20 21:00 Fluticasone Propion-Salmeterol [Airduo Respiclick] INHALE BID TEJA Omeprazole 20 mg 10/09/20 09:00 10/10/20 08:50 Omeprazole 20 Mg Capsule.Dr PO 20 mg DAILY TEJA Administration Pharmacy Consult 1 each 10/08/20 08:39 Consult Rx Perform Med Rec MISCELLANE ONCE PRN Consult order Prazosin HCl 1 mg 10/08/20 20:31 10/08/20 21:44 Prazosin Hcl 1 Mg Capsule PO 1 mg BEDTIME PRN Administration nightmare Protocol Quetiapine Fumarate 50 mg 10/08/20 20:31 10/10/20 20:46 Quetiapine Fumarate 50 Mg Tablet PO 50 mg BEDTIME PRN Administration Insomnia Quetiapine Fumarate 50 mg 10/09/20 11:48 10/10/20 12:15 Quetiapine Fumarate 50 Mg Tablet PO 50 mg Q4H PRN Administration anxiety/restlessness Quetiapine Fumarate 50 mg 10/09/20 21:20 10/10/20 20:18 Quetiapine Fumarate 50 Mg Tablet PO 50 mg BEDTIME TEJA Administration Sertraline HCl 50 mg 10/09/20 09:00 10/10/20 08:50 Sertraline Hcl 50 Mg Tablet PO 50 mg DAILY TEJA Administration Trazodone HCl 50 mg 10/08/20 20:30 10/09/20 21:28 Trazodone Hcl 50 Mg Tablet PO 50 mg BEDTIME PRN Administration Insomnia Triamcinolone Acetonide 1 appl 10/08/20 21:00 10/10/20 21:35 Triamcinolone Acet 0.5 % Cream 15 Gm Tube TOPICAL 1 appl BID TEJA Administration Protocol Valacyclovir HCl 1,000 mg 10/08/20 21:00 10/10/20 20:17 Valacycyclovir Hcl 1,000 Mg Tablet PO 1,000 mg BID TEJA Administration Allergies Allergies Allergy/AdvReac Type Severity Reaction Status Date / Time aspirin [Aspirin] Allergy Severe HIVES,THROAT Unverified 07/17/20 17:00 SWELLS bee pollen [BEE STINGS] Allergy Severe ANAPHYLAXIS Unverified 07/17/20 17:00 diphenhydramine Allergy Severe hives, Unverified 07/17/20 17:00 [From BENADRYL ALLERGY] throat swells Penicillins [PCN] Allergy Severe HIVES Unverified 07/17/20 17:00 THROAT SWELLS Sulfa (Sulfonamide Allergy Intermediate HIVES Unverified 07/17/20 17:00 Antibiotics) [SULFA (SULFONAMIDE ANTIBIOTICS)] tramadol [TRAMADOL] Allergy Intermediate ITCHING Unverified 07/17/20 17:00 latex [LATEX] Allergy Unknown UNKNOWN Unverified 07/17/20 17:00 penicillin G Allergy Unknown Unknown Verified 10/09/20 11:01 bee stings Allergy Unknown Unknown Uncoded 10/09/20 11:01 DairyCare Allergy Unknown Unknown Uncoded 10/09/20 11:01 sulfa drugs Allergy Unknown Unknown Uncoded 10/09/20 11:01 From Lactaid AdvReac Mild DIARRHEA Uncoded 07/17/20 17:00 Assessment & Plan Assessment & Plan (1) Borderline personality disorder: Status: Acute Code(s): F60.3 - Borderline personality disorder (2) Bipolar disorder: Status: Acute Code(s): F31.9 - Bipolar disorder, unspecified Assessment and Plan: LITHIUM RESTARTED SEROQUEL MONITOR SAFETY OF HERSELF AND OTHERS DISCHARGE PLANNING PATIENT HAS BURNED MANY BRIDGES BECAUSE OF LACK OF OUTPATIENT COMPLIANCE Greater than 50% of the session was spent on counseling and/or coordination of care
[2020-10-11] MEDS: Lithium Carbonate ER 300 MG TABLET.ER PO ×2 (09:25→22:01)
[2020-10-11] MEDS: Sertraline HCL 50 MG TABLET PO (09:26)
[2020-10-11] MEDS: Omeprazole 20 MG CAPSULE.DR PO (09:26)
[2020-10-11] MEDS: Acetaminophen 325 MG TABLET 650 MG PO (09:53)
[2020-10-11 17:30] VITALS: BP 134/59; PULSE 72; TEMP 36.8
[2020-10-11] MEDS: Triamcinolone Acet 0.5 % Cream 15 GM TUBE 1 APPL TOPICAL (22:01)
[2020-10-11] MEDS: QUEtiapine Fumarate 50 MG TABLET PO (22:01)
[2020-10-12 06:30] VITALS: BP 113/71; PULSE 69; RESP 18; TEMP 36.7; O2SAT 93
[2020-10-12] MEDS: Sertraline HCL 50 MG TABLET PO (08:20)
[2020-10-12] MEDS: Acetaminophen 325 MG TABLET 650 MG PO ×2 (08:20→18:54)
[2020-10-12] MEDS: Lithium Carbonate ER 300 MG TABLET.ER PO ×2 (08:20→21:05)
[2020-10-12] MEDS: Omeprazole 20 MG CAPSULE.DR PO (08:20)
--- NOTE | 2020-10-12 09:03 | P.PNPSI_ITS ---
Subjective Subjective Date of Service: 10/12/20 Reason For Visit: Depression? OD sub abuse Interim History: Reports more stable mood. Kept calm despite intrusive male and female pt. appears to be in pain from arthritis but is allergic to NSAIDS// ASA. Complimented pt on good impulse control Review of Systems Review of Systems Constitutional: No Weight loss, No Fever, No Chills, +Fatigue, + Malaise Cardiovascular: No Chest Pain, +chronic SOB, No Dyspnea on Exertion, No Edema Respiratory: +chronic Cough, No Sputum, No Wheezing Gastrointestinal: No Nausea, No Vomiting, No Diarrhea, No Constipation, No Abdominal pain Genitourinary: No irregular bleeding, No Dysuria, No Urinary Frequency, No Hematuria Musculoskeletal: No joint pain, No Myalgias, No Joint Swelling Skin: No Skin Lesions, No rash Psych: No Anxiety/Panic, +Depression, + SI/HI Mental Status Exam Mental Status Exam Patient Appearance: Unkempt Patient Orientation: Person, Place, Time and Situation Level of Consciousness: Awake Patient Behavior: Appropriate Mood Description: Depressed, Anxious, Labile and Angry Affect Description: Fearful, Labile and Angry Ability to Follow Directions: Fair Memory Description: Intact Diagnostics Vital Signs (24Hr): Vital Signs - 24 hr 10/11/20 17:30 10/12/20 06:30 Temperature 98.2 F 98.0 F Pulse Rate 72 69 Respiratory Rate 18 Blood Pressure 134/59 L 113/71 Pulse Oximetry 93 Body Mass Index 39.1 Labs Results: 10/07/20 15:47 10/07/20 15:47 Imaging Radiology Impressions: ITS Impressions Chest X-Ray 10/07/20 14:56 IMPRESSION: No evidence for acute disease in the chest. Medications Medications Current Medications Generic Name Dose Route Start Last Admin Trade Name Freq PRN Reason Stop Dose Admin Acetaminophen 650 mg 10/08/20 20:30 10/12/20 08:20 Acetaminophen 325 Mg Tablet PO 650 mg Q6H PRN Administration Headache/Pain Mild Scale (1-3) Al Hydroxide/Mg Hydroxide 30 ml 10/08/20 20:30 Magnesium Hydrox/Alum Hydrox 30 Ml Oral.Susp PO Q6H PRN Heartburn/Nausea Albuterol Sulfate 2 puff 10/08/20 20:31 10/10/20 08:50 Albuterol Sulfate 90 Mcg 8 Gm Inhaler INHALE 2 puff QID PRN Administration Shortness Of Breath Or Wheezing Doxycycline Hyclate 100 mg 10/08/20 21:00 10/12/20 08:20 Doxycycline Hyclate 100 Mg Tablet PO 100 mg BID TEJA Administration Hydroxyzine HCl 25 mg 10/08/20 20:30 10/10/20 20:18 Hydroxyzine Hcl 25 Mg Tablet PO 25 mg BEDTIME PRN Administration Anxiety [place] Carbonate 300 mg 10/09/20 21:20 10/12/20 08:20 [place] Carbonate Er 300 Mg Tablet.Er PO 300 mg BID TEJA Administration Magnesium Hydroxide 30 ml 10/08/20 20:30 10/08/20 21:08 Milk Of Magnesia 30 Ml Oral.Susp PO 30 ml DAILY PRN Administration Constipation Nicotine Polacrilex 4 mg 10/08/20 20:47 10/08/20 21:08 Nicotine Polacrilex 4 Mg Lozenge BUCCAL 4 mg Q2H PRN Administration Nicotine Cravings Non-Formulary Medication 1 inhalation 10/08/20 21:00 Fluticasone Propion-Salmeterol [Airduo Respiclick] INHALE BID TEJA Omeprazole 20 mg 10/09/20 09:00 10/12/20 08:20 Omeprazole 20 Mg Capsule. PO 20 mg DAILY TEJA Administration Pharmacy Consult 1 each 10/08/20 08:39 Consult Rx Perform Med Rec MISCELLANE ONCE PRN Consult order Prazosin HCl 1 mg 10/08/20 20:31 10/08/20 21:44 Prazosin Hcl 1 Mg Capsule PO 1 mg BEDTIME PRN Administration nightmare Protocol Quetiapine Fumarate 50 mg 10/08/20 20:31 10/10/20 20:46 Quetiapine Fumarate 50 Mg Tablet PO 50 mg BEDTIME PRN Administration Insomnia Quetiapine Fumarate 50 mg 10/09/20 11:48 10/10/20 12:15 Quetiapine Fumarate 50 Mg Tablet PO 50 mg Q4H PRN Administration anxiety/restlessness Quetiapine Fumarate 50 mg 10/09/20 21:20 10/11/20 22:01 Quetiapine Fumarate 50 Mg Tablet PO 50 mg BEDTIME TEJA Administration Sertraline HCl 50 mg 10/09/20 09:00 10/12/20 08:20 Sertraline Hcl 50 Mg Tablet PO 50 mg DAILY TEJA Administration Trazodone HCl 50 mg 10/08/20 20:30 10/09/20 21:28 Trazodone Hcl 50 Mg Tablet PO 50 mg BEDTIME PRN Administration Insomnia Triamcinolone Acetonide 1 appl 10/08/20 21:00 10/12/20 08:21 Triamcinolone Acet 0.5 % Cream 15 Gm Tube TOPICAL Not Given BID [facility] Protocol Valacyclovir HCl 1,000 mg 10/08/20 21:00 10/12/20 08:20 Valacycyclovir Hcl 1,000 Mg Tablet PO 1,000 mg BID TEJA Administration Allergies Allergies Allergy/AdvReac Type Severity Reaction Status Date / Time aspirin [Aspirin] Allergy Severe HIVES,THROAT Unverified 07/17/20 17:00 SWELLS bee pollen [BEE STINGS] Allergy Severe ANAPHYLAXIS Unverified 07/17/20 17:00 diphenhydramine Allergy Severe hives, Unverified 07/17/20 17:00 [From BENADRYL ALLERGY] throat swells Penicillins [PCN] Allergy Severe HIVES Unverified 07/17/20 17:00 THROAT SWELLS Sulfa (Sulfonamide Allergy Intermediate HIVES Unverified 07/17/20 17:00 Antibiotics) [SULFA (SULFONAMIDE ANTIBIOTICS)] tramadol [TRAMADOL] Allergy Intermediate ITCHING Unverified 07/17/20 17:00 latex [LATEX] Allergy Unknown UNKNOWN Unverified 07/17/20 17:00 penicillin G Allergy Unknown Unknown Verified 10/09/20 11:01 bee stings Allergy Unknown Unknown Uncoded 10/09/20 11:01 DairyCare Allergy Unknown Unknown Uncoded 10/09/20 11:01 sulfa drugs Allergy Unknown Unknown Uncoded 10/09/20 11:01 From Lactaid AdvReac Mild DIARRHEA Uncoded 07/17/20 17:00 Assessment & Plan Assessment & Plan (1) Borderline personality disorder: Status: Acute Code(s): F60.3 - Borderline personality disorder (2) Bipolar disorder: Status: Acute Code(s): F31.9 - Bipolar disorder, unspecified Assessment and Plan: LITHIUM RESTARTED SEROQUEL MONITOR SAFETY OF HERSELF AND OTHERS DISCHARGE PLANNING PATIENT HAS BURNED MANY BRIDGES BECAUSE OF LACK OF OUTPATIENT COMPLIANCE Greater than 50% of the session was spent on counseling and/or coordination of care
[2020-10-12 18:00] VITALS: BP 127/71; PULSE 87; TEMP 36.7
[2020-10-12] MEDS: QUEtiapine Fumarate 50 MG TABLET PO (21:05)
[2020-10-13 06:35] VITALS: BP 123/69; PULSE 68; RESP 18; TEMP 36.6; O2SAT 94
[2020-10-13] MEDS: Omeprazole 20 MG CAPSULE.DR PO (08:37)
[2020-10-13] MEDS: Sertraline HCL 50 MG TABLET PO (08:37)
[2020-10-13] MEDS: Lithium Carbonate ER 300 MG TABLET.ER PO ×2 (08:37→21:06)
[2020-10-13] MEDS: Acetaminophen 325 MG TABLET 650 MG PO ×2 (08:37→21:06)
[2020-10-13] MEDS: Triamcinolone Acet 0.5 % Cream 15 GM TUBE 1 APPL TOPICAL (09:18)
--- NOTE | 2020-10-13 14:13 | HO.PSYCHPN ---
Subjective Subjective Date of Service: 10/13/20 Reason For Visit: Depression si Mental Status Exam Mental Status Exam Narrative: patient calm when seen denies active SI states lithium has been helpful Patient Appearance: Unkempt Patient Orientation: Person, Place, Time and Situation Level of Consciousness: Awake Patient Behavior: Appropriate Mood Description: Depressed, Anxious, Labile and Angry Affect Description: Fearful, Labile and Angry Ability to Follow Directions: Fair Memory Description: Intact Diagnostics Vital Signs (24Hr): Vital Signs - 24 hr 10/12/20 18:00 10/13/20 06:35 Temperature 98.0 F 97.8 F Pulse Rate 87 68 Respiratory Rate 18 Blood Pressure 127/71 123/69 Pulse Oximetry 94 Body Mass Index 39.1 Labs Results: 10/07/20 15:47 10/07/20 15:47 Imaging Radiology Impressions: ITS Impressions Chest X-Ray 10/07/20 14:56 IMPRESSION: No evidence for acute disease in the chest. Medications Medications Current Medications Generic Name Dose Route Start Last Admin Trade Name Freq PRN Reason Stop Dose Admin Acetaminophen 650 mg 10/08/20 20:30 10/13/20 08:37 Acetaminophen 325 Mg Tablet PO 650 mg Q6H PRN Administration Headache/Pain Mild Scale (1-3) Al Hydroxide/Mg Hydroxide 30 ml 10/08/20 20:30 Magnesium Hydrox/Alum Hydrox 30 Ml Oral.Susp PO Q6H PRN Heartburn/Nausea Albuterol Sulfate 2 puff 10/08/20 20:31 10/10/20 08:50 Albuterol Sulfate 90 Mcg 8 Gm Inhaler INHALE 2 puff QID PRN Administration Shortness Of Breath Or Wheezing Doxycycline Hyclate 100 mg 10/08/20 21:00 10/13/20 08:37 Doxycycline Hyclate 100 Mg Tablet PO 100 mg BID TEJA Administration Hydroxyzine HCl 25 mg 10/08/20 20:30 10/10/20 20:18 Hydroxyzine Hcl 25 Mg Tablet PO 25 mg BEDTIME PRN Administration Anxiety [place] Carbonate 300 mg 10/09/20 21:20 10/13/20 08:37 [place] Carbonate Er 300 Mg Tablet.Er PO 300 mg BID TEJA Administration Magnesium Hydroxide 30 ml 10/08/20 20:30 10/08/20 21:08 Milk Of Magnesia 30 Ml Oral.Susp PO 30 ml DAILY PRN Administration Constipation Nicotine Polacrilex 4 mg 10/08/20 20:47 10/08/20 21:08 Nicotine Polacrilex 4 Mg Lozenge BUCCAL 4 mg Q2H PRN Administration Nicotine Cravings Non-Formulary Medication 1 inhalation 10/08/20 21:00 Fluticasone Propion-Salmeterol [Airduo Respiclick] INHALE BID [facility] Omeprazole 20 mg 10/09/20 09:00 10/13/20 08:37 Omeprazole 20 Mg Capsule.Dr PO 20 mg DAILY TEJA Administration Pharmacy Consult 1 each 10/08/20 08:39 Consult Rx Perform Med Rec MISCELLANE ONCE PRN Consult order Prazosin HCl 1 mg 10/08/20 20:31 10/08/20 21:44 Prazosin Hcl 1 Mg Capsule PO 1 mg BEDTIME PRN Administration nightmare Protocol Quetiapine Fumarate 50 mg 10/08/20 20:31 10/10/20 20:46 Quetiapine Fumarate 50 Mg Tablet PO 50 mg BEDTIME PRN Administration Insomnia Quetiapine Fumarate 50 mg 10/09/20 11:48 10/10/20 12:15 Quetiapine Fumarate 50 Mg Tablet PO 50 mg Q4H PRN Administration anxiety/restlessness Quetiapine Fumarate 50 mg 10/09/20 21:20 10/12/20 21:05 Quetiapine Fumarate 50 Mg Tablet PO 50 mg BEDTIME TEJA Administration Sertraline HCl 50 mg 10/09/20 09:00 10/13/20 08:37 Sertraline Hcl 50 Mg Tablet PO 50 mg DAILY TEJA Administration Trazodone HCl 50 mg 10/08/20 20:30 10/09/20 21:28 Trazodone Hcl 50 Mg Tablet PO 50 mg BEDTIME PRN Administration Insomnia Triamcinolone Acetonide 1 appl 10/08/20 21:00 10/13/20 09:18 Triamcinolone Acet 0.5 % Cream 15 Gm Tube TOPICAL 1 appl BID [facility] Administration Protocol Valacyclovir HCl 1,000 mg 10/08/20 21:00 10/13/20 08:37 Valacycyclovir Hcl 1,000 Mg Tablet PO 1,000 mg BID TEJA Administration Allergies Allergies Allergy/AdvReac Type Severity Reaction Status Date / Time aspirin [Aspirin] Allergy Severe HIVES,THROAT Unverified 07/17/20 17:00 SWELLS bee pollen [BEE STINGS] Allergy Severe ANAPHYLAXIS Unverified 07/17/20 17:00 diphenhydramine Allergy Severe hives, Unverified 07/17/20 17:00 [From BENADRYL ALLERGY] throat swells Penicillins [PCN] Allergy Severe HIVES Unverified 07/17/20 17:00 THROAT SWELLS Sulfa (Sulfonamide Allergy Intermediate HIVES Unverified 07/17/20 17:00 Antibiotics) [SULFA (SULFONAMIDE ANTIBIOTICS)] tramadol [TRAMADOL] Allergy Intermediate ITCHING Unverified 07/17/20 17:00 latex [LATEX] Allergy Unknown UNKNOWN Unverified 07/17/20 17:00 penicillin G Allergy Unknown Unknown Verified 10/09/20 11:01 bee stings Allergy Unknown Unknown Uncoded 10/09/20 11:01 DairyCare Allergy Unknown Unknown Uncoded 10/09/20 11:01 sulfa drugs Allergy Unknown Unknown Uncoded 10/09/20 11:01 From Lactaid AdvReac Mild DIARRHEA Uncoded 07/17/20 17:00 Assessment & Plan Assessment & Plan (1) Borderline personality disorder: Status: Acute Code(s): F60.3 - Borderline personality disorder (2) Bipolar disorder: Status: Acute Code(s): F31.9 - Bipolar disorder, unspecified (3) Suicide attempt: Status: Acute Code(s): T14.91XA - Suicide attempt, initial encounter Assessment and Plan: check lithium level need referral for aftercare patient with periods of irritability and aggression asking about respite Greater than 50% of the session was spent on counseling and/or coordination of care
[2020-10-13 17:15] VITALS: BP 127/66; PULSE 80; TEMP 36
[2020-10-13] MEDS: QUEtiapine Fumarate 50 MG TABLET PO (21:06)
--- NOTE | 2020-10-13 22:10 | P.PNPSI_ITS ---
Subjective Subjective Date of Service: 10/14/20 Reason For Visit: Depression si Subjective Notes: Conditional Voluntary Interim History: patient calmer future oriented less agitated denies thoughts of harm to self or others Medication Compliance: Yes Side effects from medications: No Attending Groups: Intermittent Mental Status Exam Mental Status Exam Narrative: patient calm when seen denies active SI states lithium has been helpful Patient Appearance: Unkempt Patient Orientation: Person, Place, Time and Situation Level of Consciousness: Awake Patient Behavior: Appropriate Mood Description: Appropriate and Labile Affect Description: Labile and Angry Ability to Follow Directions: Good Speech Pattern: Clear Memory Description: Intact Delusions: Not Present Thought Process: Intact Judgement and Insight: patient cooperative with discharge planning accepting treatment Diagnostics Vital Signs (24Hr): Vital Signs - 24 hr 10/13/20 06:35 10/13/20 17:15 Temperature 97.8 F 96.8 F Pulse Rate 68 80 Respiratory Rate 18 Blood Pressure 123/69 127/66 Pulse Oximetry 94 Body Mass Index 39.1 Labs Results: 10/07/20 15:47 10/14/20 07:53 Imaging Radiology Impressions: ITS Impressions Chest X-Ray 10/07/20 14:56 IMPRESSION: No evidence for acute disease in the chest. Medications Medications Current Medications Generic Name Dose Route Start Last Admin Trade Name Freq PRN Reason Stop Dose Admin Acetaminophen 650 mg 10/08/20 20:30 10/13/20 21:06 Acetaminophen 325 Mg Tablet PO 650 mg Q6H PRN Administration Headache/Pain Mild Scale (1-3) Al Hydroxide/Mg Hydroxide 30 ml 10/08/20 20:30 Magnesium Hydrox/Alum Hydrox 30 Ml Oral.Susp PO Q6H PRN Heartburn/Nausea Albuterol Sulfate 2 puff 10/08/20 20:31 10/10/20 08:50 Albuterol Sulfate 90 Mcg 8 Gm Inhaler INHALE 2 puff QID PRN Administration Shortness Of Breath Or Wheezing Doxycycline Hyclate 100 mg 10/08/20 21:00 10/13/20 21:06 Doxycycline Hyclate 100 Mg Tablet PO 100 mg BID TEJA Administration Hydroxyzine HCl 25 mg 10/08/20 20:30 10/10/20 20:18 Hydroxyzine Hcl 25 Mg Tablet PO 25 mg BEDTIME PRN Administration Anxiety [place] Carbonate 300 mg 10/09/20 21:20 10/13/20 21:06 [place] Carbonate Er 300 Mg Tablet.Er PO 300 mg BID TEJA Administration Magnesium Hydroxide 30 ml 10/08/20 20:30 10/08/20 21:08 Milk Of Magnesia 30 Ml Oral.Susp PO 30 ml DAILY PRN Administration Constipation Nicotine Polacrilex 4 mg 10/08/20 20:47 10/08/20 21:08 Nicotine Polacrilex 4 Mg Lozenge BUCCAL 4 mg Q2H PRN Administration Nicotine Cravings Non-Formulary Medication 1 inhalation 10/08/20 21:00 Fluticasone Propion-Salmeterol [Airduo Respiclick] INHALE BID TEJA Omeprazole 20 mg 10/09/20 09:00 10/13/20 08:37 Omeprazole 20 Mg Capsule. PO 20 mg DAILY TEJA Administration Pharmacy Consult 1 each 10/08/20 08:39 Consult Rx Perform Med Rec MISCELLANE ONCE PRN Consult order Prazosin HCl 1 mg 10/08/20 20:31 10/08/20 21:44 Prazosin Hcl 1 Mg Capsule PO 1 mg BEDTIME PRN Administration nightmare Protocol Quetiapine Fumarate 50 mg 10/08/20 20:31 10/10/20 20:46 Quetiapine Fumarate 50 Mg Tablet PO 50 mg BEDTIME PRN Administration Insomnia Quetiapine Fumarate 50 mg 10/09/20 11:48 10/10/20 12:15 Quetiapine Fumarate 50 Mg Tablet PO 50 mg Q4H PRN Administration anxiety/restlessness Quetiapine Fumarate 50 mg 10/09/20 21:20 10/13/20 21:06 Quetiapine Fumarate 50 Mg Tablet PO 50 mg BEDTIME TEJA Administration Sertraline HCl 50 mg 10/09/20 09:00 10/13/20 08:37 Sertraline Hcl 50 Mg Tablet PO 50 mg DAILY TEJA Administration Trazodone HCl 50 mg 10/08/20 20:30 10/09/20 21:28 Trazodone Hcl 50 Mg Tablet PO 50 mg BEDTIME PRN Administration Insomnia Triamcinolone Acetonide 1 appl 10/08/20 21:00 10/13/20 21:13 Triamcinolone Acet 0.5 % Cream 15 Gm Tube TOPICAL Not Given BID TEJA Protocol Valacyclovir HCl 1,000 mg 10/08/20 21:00 10/13/20 21:05 Valacycyclovir Hcl 1,000 Mg Tablet PO 1,000 mg BID TEJA Administration Allergies Allergies Allergy/AdvReac Type Severity Reaction Status Date / Time aspirin [Aspirin] Allergy Severe HIVES,THROAT Unverified 07/17/20 17:00 SWELLS bee pollen [BEE STINGS] Allergy Severe ANAPHYLAXIS Unverified 07/17/20 17:00 diphenhydramine Allergy Severe hives, Unverified 07/17/20 17:00 [From BENADRYL ALLERGY] throat swells Penicillins [PCN] Allergy Severe HIVES Unverified 07/17/20 17:00 THROAT SWELLS Sulfa (Sulfonamide Allergy Intermediate HIVES Unverified 07/17/20 17:00 Antibiotics) [SULFA (SULFONAMIDE ANTIBIOTICS)] tramadol [TRAMADOL] Allergy Intermediate ITCHING Unverified 07/17/20 17:00 latex [LATEX] Allergy Unknown UNKNOWN Unverified 07/17/20 17:00 penicillin G Allergy Unknown Unknown Verified 10/09/20 11:01 bee stings Allergy Unknown Unknown Uncoded 10/09/20 11:01 DairyCare Allergy Unknown Unknown Uncoded 10/09/20 11:01 sulfa drugs Allergy Unknown Unknown Uncoded 10/09/20 11:01 From Lactaid AdvReac Mild DIARRHEA Uncoded 07/17/20 17:00 Assessment & Plan Assessment & Plan (1) Bipolar disorder: Status: Acute Code(s): F31.9 - Bipolar disorder, unspecified (2) Borderline personality disorder: Status: Acute Code(s): F60.3 - Borderline personality disorder Assessment and Plan: patient is restarted Seroquel and lithium seems stable for discharge check lithium level in the morning Greater than 50% of the session was spent on counseling and/or coordination of care
[2020-10-14 06:15] VITALS: BP 112/62; PULSE 68; RESP 18; TEMP 36.4; O2SAT 93
[2020-10-14] MEDS: Omeprazole 20 MG CAPSULE.DR PO (08:54)
[2020-10-14] MEDS: Sertraline HCL 50 MG TABLET PO (08:54)
[2020-10-14] MEDS: Lithium Carbonate ER 300 MG TABLET.ER PO ×2 (08:55→20:33)
[2020-10-14 09:00] LABS: Alanine Aminotransferase 36 U/L (0-31); Albumin Level 4.1 g/dL (3.5-5.0); Alkaline Phosphatase 79 U/L (39-117); Anion Gap 14 (12-20); Aspartate Amino Transferase 26 U/L (5-31); Bilirubin Total 0.3 mg/dL (0.0-1.0); Blood Urea Nitrogen 20 mg/dL (9-16); Calcium 9.2 mg/dL (8.4-10.2); Carbon Dioxide 25 mmol/L (22-29); Chloride 103 mmol/L (96-108); Cholesterol 186 mg/dL; Creatinine Clr Calc Pharmacy 128.9; Estimated Glomerular Filt Rate > 60; Glucose Fasting 108 mg/dL (60-99); HDL Cholesterol 52 mg/dL; LDL Cholesterol Calculated 88 mg/dl; Potassium 4.9 mmol/l (3.3-5.1); Sodium 137 mmol/L (135-145); Total Protein 6.6 g/dL (6.5-8.0); Triglycerides 231 mg/dL
[2020-10-14 09:22] LABS: Estimated Average Glucose 111 mg/dL; Hemoglobin A1c % 5.5 %
[2020-10-14 09:58] LABS: Reflex LDLD? No
[2020-10-14] MEDS: QUEtiapine Fumarate 50 MG TABLET PO ×2 (11:27→20:33)
[2020-10-14] MEDS: Acetaminophen 325 MG TABLET 650 MG PO (11:27)
[2020-10-14 18:00] VITALS: BP 132/69; PULSE 84; TEMP 36.3
[2020-10-15 06:25] VITALS: BP 115/64; PULSE 82; RESP 18; TEMP 36.7; O2SAT 95
[2020-10-15] MEDS: Sertraline HCL 50 MG TABLET PO (08:59)
[2020-10-15] MEDS: Omeprazole 20 MG CAPSULE.DR PO (08:59)
[2020-10-15] MEDS: Lithium Carbonate ER 300 MG TABLET.ER PO (10:31)
[2020-10-15] MEDS: Naloxone HCl Nasal 4 MG SPRAY NOSTRILALT (11:08)
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
== END 2020-10-15 12:18 | disposition other institution (70) | DRG 752 ==
LOC: HO.ED 10-08 16:44 → HO.PM5 10-08 16:54
PROVIDERS: Physician Assistant; Admitting Provider Psychiatry & Neurology Psychiatry; Emergency Provider Emergency Medicine; Visit Provider Psychiatry & Neurology Psychiatry
DX: F60.3 Borderline personality disorder (principal); R45.851 Suicidal ideations; F31.9 Bipolar disorder, unspecified; F17.210 Nicotine dependence, cigarettes, uncomplicated; Z20.828 Contact with and (suspected) exposure to other viral communicable diseases; Z59.0 Homelessness; Z23 Encounter for immunization; Z71.6 Tobacco abuse counseling; Z88.0 Allergy status to penicillin; Z88.2 Allergy status to sulfonamides; Z88.6 Allergy status to analgesic agent; Z79.51 Long term (current) use of inhaled steroids; Z79.899 Other long term (current) drug therapy
CPT/HCPCS: 36415; 71045; 80048; 80053; 80061; 80076; 80156; 80178; 80307; 80320; 81025; 83036; 83690; 83735; 85025; 85610; 85730; 87635; 90686; 90792; 93005; 94640; 96361; 96374; 99232; 99239; 99285; G0480; J2765

== ENCOUNTER 2020-10-27 13:46 | Outpatient (REF) | payer MEDICAID, SELFPAY ==
[2020-10-27 14:46] LABS: Lithium < 0.10 mmol/L (0.60-1.20)
== END 2020-10-27 13:47 | disposition home or self-care (01) ==
LOC: HO.LAB 13:46
PROVIDERS: PCP Internal Medicine; Visit Provider Psychiatry & Neurology Psychiatry
DX: F31.9 Bipolar disorder, unspecified (principal)
CPT/HCPCS: 80178

== ENCOUNTER 2020-10-28 20:54 | Emergency (ER) | payer MEDICAID, SELFPAY ==
--- NOTE | 2020-10-28 21:07 | ED.GENADULT ---
HPI - General Adult General Stated complaint: seizure? Source: patient Mode of arrival: ambulatory Limitations: no limitations History of Present Illness HPI narrative: Patient was brought in because of presentation of seizure in the car. Patient presently is alert oriented x3 patient does not want to stay for evaluation. Patient wants to be discharged. Patient has known history of seizure. Related Data Home Medications Medication Instructions Recorded Confirmed acetaminophen 500 mg PO TID PRN 10/08/20 10/08/20 albuterol sulfate 2 puff INHALATION QID PRN 10/08/20 10/08/20 fluticasone propion-salmeterol 1 inh INHALATION BID 10/08/20 10/08/20 [AirDuo RespiClick] omeprazole 20 mg PO DAILY 10/08/20 10/08/20 prazosin 1 mg PO BEDTIME PRN 10/08/20 10/08/20 sertraline 50 mg PO DAILY 10/08/20 10/08/20 triamcinolone acetonide 1 appl TOPICAL BID 10/08/20 10/08/20 valacyclovir 1,000 mg PO BID 10/08/20 10/08/20 Previous Rx's Medication Instructions Recorded lithium carbonate 300 mg PO BID 15 Days #30 tab 10/15/20 quetiapine [Seroquel] 50 mg PO BEDTIME #45 tab 10/15/20 trazodone 50 mg PO BEDTIME PRN #15 tab 10/15/20 Allergies Allergy/AdvReac Type Severity Reaction Status Date / Time aspirin [Aspirin] Allergy Severe HIVES,THROAT Unverified 07/17/20 17:00 SWELLS bee pollen [BEE STINGS] Allergy Severe ANAPHYLAXIS Unverified 07/17/20 17:00 diphenhydramine Allergy Severe hives, Unverified 07/17/20 17:00 [From BENADRYL ALLERGY] throat swells Penicillins [PCN] Allergy Severe HIVES Unverified 07/17/20 17:00 THROAT SWELLS Sulfa (Sulfonamide Allergy Intermediate HIVES Unverified 07/17/20 17:00 Antibiotics) [SULFA (SULFONAMIDE ANTIBIOTICS)] tramadol [TRAMADOL] Allergy Intermediate ITCHING Unverified 07/17/20 17:00 latex [LATEX] Allergy Unknown UNKNOWN Unverified 07/17/20 17:00 penicillin G Allergy Unknown Unknown Verified 10/09/20 11:01 bee stings Allergy Unknown Unknown Uncoded 10/09/20 11:01 DairyCare Allergy Unknown Unknown Uncoded 10/09/20 11:01 sulfa drugs Allergy Unknown Unknown Uncoded 10/09/20 11:01 From Lactaid AdvReac Mild DIARRHEA Uncoded 07/17/20 17:00 Review of Systems Review of Systems: Patient admits to seizure, but no longer wants to answer question and would like be discharged. [facility] Past Medical History Medical History Bipolar disorder Borderline personality disorder COPD (chronic obstructive pulmonary disease) Depression Family History Family History (Updated 10/09/20 @ 21:08 by Mayo Cardona MD) Other COPD (chronic obstructive pulmonary disease) Social History Social History Household Members: None Housing: Homeless Alcohol intake: never Smoking Status: Current every day smoker Tobacco Type: Cigarette Packs Per Day: 2 Cigarettes Per Day: 40.0 Second Hand Smoke Exposure: No Advance Directives: No Advance Directives Information Provided: No Physical Exam Const: Other: Patient did not want to be physically examined. Patient was alert oriented x3. General: cooperative, healthy appearing, comfortable, no acute distress, well developed, alert, awake and Physically active Orientation/consciousness: patient oriented x3 Neuro: General: patient oriented x3, gait normal and CN's II-XI intact bilaterally Course Reevaluation(s) Reevaluation #1: Patient has history of seizure and was brought in for having a seizure in the car. Patient no longer wants to wait in the ER. Patient was signed against medical advice. Patient does not want further evaluation. Patient signed against medical advice form. Patient did not want to get triaged. Patient for necessity to evaluate her to make sure there is no other cause of her seizure such as blood work, head CT, and urine. The patient refused. Patient signed against medical advice understanding risks which include , brain bleed, sepsis, and decreased disability of life. Time: 21:08 Discharge Plan Discharge Patient Disposition: Left Against Medical Advice Prescriptions: No Action triamcinolone acetonide 0.5 % Cream 1 appl TOPICAL BID RF: 0 valacyclovir 1 gram Tablet 1,000 mg PO BID RF: 0 prazosin 1 mg Capsule 1 mg PO BEDTIME PRN (Reason: nightmare) RF: 0 acetaminophen 500 mg Tablet 500 mg PO TID PRN (Reason: Pain) RF: 0 omeprazole 20 mg Capsule,Delayed Release(Dr/Ec) 20 mg PO DAILY RF: 0 albuterol sulfate 90 mcg/actuation Hfa Aerosol Inhaler 2 puff INHALATION QID PRN (Reason: Shortness Of Breath Or Wheezing) RF: 0 sertraline 50 mg Tablet 50 mg PO DAILY RF: 0 fluticasone propion-salmeterol [AirDuo RespiClick] 232-14 mcg/actuation Aerosol Powdr Breath Activated 1 inh INHALATION BID RF: 0 trazodone 50 mg Tablet 50 mg PO BEDTIME PRN (Reason: Insomnia) Qty: 15 RF: 1 lithium carbonate 300 mg Tablet Extended Release 300 mg PO BID 15 Days Qty: 30 RF: 1 quetiapine [Seroquel] 50 mg tablet 50 mg PO BEDTIME Qty: 45 RF: 0 Stand Alone Forms: Against Medical Advice Interventions: ED Discharge Assessment Last Done: 10/28/20 21:12 Discharge Date/Time: 10/28/20 21:10
--- NOTE | 2020-10-28 21:08 | PC.NURSE ---
PT ARRIVED THIS EVENING, AFTER BEING DROPPED OFF IN WAITING ROOM HAVING POSSIBLY EXPERIENCED A SEIZURE IN THE CAR SHE WAS BROUGHT IN BY. PT INITIALLY UNWILLING TO SPEAK, CRYING, ALERT BUT NOT RESPONDING TO ANY QUESTIONS. UPON ATTEMPT TO COAT OPERATOR INSULATOR, PT BECAME AGITATED, VERBALLY ABUSIVE, REFUSING CHANGEOVER AND TRIAGE, DEMANDING TO LEAVE. SEEN BY LASHONDA SORIANO, PT CONTINUING TO REFUSE CARE, LEAVING AMA, FORM SIGNED UPON DEPARTURE.
== END 2020-10-28 21:10 | disposition left against medical advice (07) ==
PROVIDERS: Emergency Provider Emergency Medicine
DX: R56.9 Unspecified convulsions (principal); Z79.899 Other long term (current) drug therapy; F17.210 Nicotine dependence, cigarettes, uncomplicated; Z71.6 Tobacco abuse counseling

== ENCOUNTER 2020-11-15 22:39 | Emergency (ER) | payer MEDICAID, SELFPAY ==
--- NOTE | 2020-11-15 22:51 | ECG_ITS ---
Test Reason : OVERDOSE Blood Pressure : / mmHG Vent. Rate : 081 BPM Atrial Rate : 081 BPM P-R Int : 146 ms QRS Dur : 084 ms QT Int : 408 ms P-R-T Axes : 038 031 027 degrees QTc Int : 473 ms Normal sinus rhythm Normal ECG When compared with ECG of 07-OCT-2020 15:23, No significant change was found Referred By: Sonia Hendrix Electronically Signed By:VAIBHAV KILLIAN MD
[2020-11-15 22:52] VITALS: BP 132/84; BP 137/76; PULSE 82; PULSE 83; RESP 17; TEMP 36.8; O2SAT 93; O2SAT 94; BMI 40.4
--- NOTE | 2020-11-15 22:52 | ED_ITS ---
HPI - Overdose General Chief Complaint: Psychiatric Symptoms Stated Complaint: OVERDOSE Time Seen by Provider: 11/15/20 22:51 Source: patient and EMS Mode of arrival: EMS History of Present Illness HPI Narrative: This is a 50-year-old female with significant psychiatric history bipolar, depression, prior suicidal attempts, with recent admission as per patient approximately 2 months ago. She states she has been off of her medication for approximately 1 week and says that she has been feeling increasingly depressed and suicidal due to her boyfriend and 2 recent losses. She states that today she felt like ?it was too much? and states that she took 10 tablets of 500 mg Tylenol. She denies taking any other prescription/illicit drugs. Related Data Home Medications Medication Instructions Recorded Confirmed acetaminophen 500 mg PO TID PRN 10/08/20 10/08/20 albuterol sulfate 2 puff INHALATION QID PRN 10/08/20 11/16/20 fluticasone propion-salmeterol 1 inh INHALATION BID 10/08/20 11/16/20 [AirDuo RespiClick] omeprazole 20 mg PO DAILY 10/08/20 11/16/20 prazosin 1 mg PO BEDTIME PRN 10/08/20 11/16/20 sertraline 50 mg PO DAILY 10/08/20 11/16/20 triamcinolone acetonide 1 appl TOPICAL BID 10/08/20 10/08/20 valacyclovir 1,000 mg PO BID 10/08/20 11/16/20 Previous Rx's Medication Instructions Recorded lithium carbonate 300 mg PO BID 15 Days #30 tab 10/15/20 quetiapine [Seroquel] 50 mg PO BEDTIME #45 tab 10/15/20 trazodone 50 mg PO BEDTIME PRN #15 tab 10/15/20 Allergies Allergy/AdvReac Type Severity Reaction Status Date / Time aspirin [Aspirin] Allergy Severe HIVES,THROAT Unverified 07/17/20 17:00 SWELLS bee pollen [BEE STINGS] Allergy Severe ANAPHYLAXIS Unverified 07/17/20 17:00 diphenhydramine Allergy Severe hives, Unverified 07/17/20 17:00 [From BENADRYL ALLERGY] throat swells Penicillins [PCN] Allergy Severe HIVES Unverified 07/17/20 17:00 THROAT SWELLS Sulfa (Sulfonamide Allergy Intermediate HIVES Unverified 07/17/20 17:00 Antibiotics) [SULFA (SULFONAMIDE ANTIBIOTICS)] tramadol [TRAMADOL] Allergy Intermediate ITCHING Unverified 07/17/20 17:00 latex [LATEX] Allergy Unknown UNKNOWN Unverified 07/17/20 17:00 penicillin G Allergy Unknown Unknown Verified 10/09/20 11:01 bee stings Allergy Unknown Unknown Uncoded 10/09/20 11:01 DairyCare Allergy Unknown Unknown Uncoded 10/09/20 11:01 sulfa drugs Allergy Unknown Unknown Uncoded 10/09/20 11:01 From Lactaid AdvReac Mild DIARRHEA Uncoded 07/17/20 17:00 Review of Systems Review of Systems: Pertinent positives and negatives as stated in HPI 10 point review of systems is otherwise negative. PMFSH Past Medical History Source: nursing notes reviewed Medical History Bipolar disorder Borderline personality disorder COPD (chronic obstructive pulmonary disease) Depression Family History Family History Other COPD (chronic obstructive pulmonary disease) Social History Social History Household Members: None Housing: Homeless Alcohol intake: never Smoking Status: Current every day smoker Tobacco Type: Cigarette Packs Per Day: 2 Cigarettes Per Day: 40.0 Second Hand Smoke Exposure: No Advance Directives: No Advance Directives Information Provided: No Physical Exam Vital Signs: Vital Signs: Last Vital Signs Temp 98.0 F 11/16/20 04:32 Pulse 69 11/16/20 04:32 Resp 18 11/16/20 04:32 BP 115/65 11/16/20 04:32 Pulse Ox 94 11/16/20 04:32 Body Mass Index 40.4 VITAL SIGNS: Reviewed. GENERAL: Well developed, well nourished, in no acute distress. HEAD: Normocephalic/atraumatic, EYES: PERRLA, EOMI EARS: Ext canals without abnormality NOSE: Nares patent bilateral OROPHARYNX: no oral lesions noted, posterior pharynx clear NECK: Supple, no adenopathy LUNGS: Normal breath sounds. No adventitious sounds or accessory muscle use. CARDIOVASCULAR: Regular rate and rhythm without noted murmurs, no JVD or lower extremity edema. ABDOMEN: Obese, Soft, non-tender, non-distended with bowel sounds. No rigidity. No guarding. No palpable masses or hernias noted NEUROLOGIC: Alert but a little drowsy and oriented x 4. Strength and sensation to light touch were grossly intact x 4. Course Course Course Narrative: This is a 50-year-old female with history and clinical presentation consistent with depression leading to suicidal ideation and attempt with overdose, intentional, of Tylenol. Will contact poison Control, but in the meantime will follow acetaminophen nomograms as appropriate. All investigations were reviewed to include lithium level and patient is currently medically cleared for further evaluation by [facility]. Patient signed out to Dr Gabriel. Reevaluation(s) Reevaluation #1: Acetaminophen- 63, elevated potassium secondary to sample hemolysis. Time: 00:11 Reevaluation #2: Call back from poison Control with recommendations: CMP, AST/ALT, Tylenol, salicylate Reevaluation #3: Review of repeat lab work shows that acetaminophen level as drop back down to 24 from 63 and lab work is otherwise within normal limits. As per poison Control there is no further evaluation is required at this time and patient is otherwise medically cleared for further behavioral evaluation. Time: 02:15 MDM - Overdose Lab Data Result diagrams: 11/15/20 23:13 11/16/20 01:22 Labs: Lab Results 11/15/20 11/15/20 11/15/20 Range/Units 23:13 23:13 23:15 WBC 8.2 (4.8-10.8) X10*3/uL RBC 4.64 (4.20-5.50) X10*6/uL Hgb 13.9 (12.0-16.0) g/dl Hct 42.8 (37-47) % MCV 92.2 (80-98) fL MCH 30.0 (27.0-33.0) pg MCHC 32.5 (31.0-35.0) g/dl RDW 13.3 (11.0-16.0) % Plt Count 283 (160-400) X10*3/uL MPV 9.8 (9.4-12.3) fL Immature Gran % (Auto) 0.2 (0.0-0.4) % Neut % (Auto) 59.0 (45-73) % Lymph % (Auto) 32.1 (20-40) % [place] % (Auto) 6.7 (2-11) % Eos % (Auto) 1.1 (0-4) % Baso % (Auto) 0.9 (0-2) % Lymph # (Auto) 2.6 (1.2-4.9) X10*3/uL [place]alle # (Auto) 0.6 (0.1-1.2) X10*3/uL Eos # (Auto) 0.1 (0.0-0.4) X10*3/uL Baso # (Auto) 0.1 (0.0-0.2) X10*3/uL Abs Immat Gran (auto) 0.02 (0.00-0.03) X10*3/uL Absolute Neuts (auto) 4.8 (2.0-8.3) X10*3/uL Absolute Nucleated RBC 0.000 (0.0-0.012) X10*3/uL Nucleated RBC % (auto) 0.0 (0.0-0.2) /100WBC PT (10.8-13.0) SEC INR (0.9-1.1) APTT (24.1-38.0) SEC VBG pH (7.32-7.43) VBG pCO2 mmHg VBG pO2 mmHg VBG HCO3 mmol/L VBG O2 Saturation % VBG Base Excess mmol/L Sodium 138 (135-145) mmol/L Potassium 5.3 H (3.3-5.1) mmol/l Chloride 103 (96-108) mmol/L Carbon Dioxide 23 (22-29) mmol/L Anion Gap 17 (12-20) BUN 8 L D (9-16) mg/dL Creatinine 0.68 (0.5-1.4) mg/dL Estim Creat Clear Calc 127.9 Estimated GFR > 60 Random Glucose 108 (60-115) mg/dL Lactic Acid (0.5-2.0) mmol/L Calcium 9.0 (8.4-10.2) mg/dL Total Bilirubin 0.4 (0.0-1.0) mg/dL Direct Bilirubin (0.0-0.5) mg/dL AST 25 (5-31) U/L ALT 24 (0-31) U/L Alkaline Phosphatase 95 D (39-117) U/L Total Protein 7.2 (6.5-8.0) g/dL Albumin 4.3 (3.5-5.0) g/dL Urine Color Urine Appearance Urine pH (5.0-8.0) Ur Specific [place] (1.005-1.025) Urine Protein (NEG-TRACE) MG/DL Urine Glucose (UA) (NEG) MG/DL Urine Ketones (NEG) MG/DL Urine Blood (NEG) Urine Nitrite (NEG) Ur Leukocyte Esterase (NEG) Urine Test (NEGATIVE) Salicylates < 5.0 L (15-30) mg/dL Urine Opiates Screen (Not Detect) Acetaminophen 63 H* (<30) mcg/mL Ur Barbiturates Screen (Not Detect) Ur Phencyclidine Scrn (Not Detect) Ur Amphetamines Screen (Not Detect) U Benzodiazepines Scrn (Not Detect) [place] (0.60-1.20) mmol/L Urine Cocaine Screen (Not Detect) U Marijuana (THC) Screen (Not Detect) Ethyl Alcohol < 10 mg/dL COVID-19 (ENDY) (Negative) COVID-19 Clin Com 11/15/20 11/15/20 11/15/20 Range/Units 23:15 23:15 23:16 WBC (4.8-10.8) X10*3/uL RBC (4.20-5.50) X10*6/uL Hgb (12.0-16.0) g/dl Hct (37-47) % MCV (80-98) fL MCH (27.0-33.0) pg MCHC (31.0-35.0) g/dl RDW (11.0-16.0) % Plt Count (160-400) X10*3/uL MPV (9.4-12.3) fL Immature Gran % (Auto) (0.0-0.4) % Neut % (Auto) (45-73) % Lymph % (Auto) (20-40) % [place]alle % (Auto) (2-11) % Eos % (Auto) (0-4) % Baso % (Auto) (0-2) % Lymph # (Auto) (1.2-4.9) X10*3/uL [place] # (Auto) (0.1-1.2) X10*3/uL Eos # (Auto) (0.0-0.4) X10*3/uL Baso # (Auto) (0.0-0.2) X10*3/uL Abs Immat Gran (auto) (0.00-0.03) X10*3/uL Absolute Neuts (auto) (2.0-8.3) X10*3/uL Absolute Nucleated RBC (0.0-0.012) X10*3/uL Nucleated RBC % (auto) (0.0-0.2) /100WBC PT 11.4 (10.8-13.0) SEC INR 1.0 (0.9-1.1) APTT 33.5 D (24.1-38.0) SEC VBG pH (7.32-7.43) VBG pCO2 mmHg VBG pO2 mmHg VBG HCO3 mmol/L VBG O2 Saturation % VBG Base Excess mmol/L Sodium (135-145) mmol/L Potassium (3.3-5.1) mmol/l Chloride (96-108) mmol/L Carbon Dioxide (22-29) mmol/L Anion Gap (12-20) BUN (9-16) mg/dL Creatinine (0.5-1.4) mg/dL Estim Creat Clear Calc Estimated GFR Random Glucose (60-115) mg/dL Lactic Acid 0.9 (0.5-2.0) mmol/L Calcium (8.4-10.2) mg/dL Total Bilirubin (0.0-1.0) mg/dL Direct Bilirubin (0.0-0.5) mg/dL AST (5-31) U/L ALT (0-31) U/L Alkaline Phosphatase (39-117) U/L Total Protein (6.5-8.0) g/dL Albumin (3.5-5.0) g/dL Urine Color Urine Appearance Urine pH (5.0-8.0) Ur Specific [place] (1.005-1.025) Urine Protein (NEG-TRACE) MG/DL Urine Glucose (UA) (NEG) MG/DL Urine Ketones (NEG) MG/DL Urine Blood (NEG) Urine Nitrite (NEG) Ur Leukocyte Esterase (NEG) Urine Test (NEGATIVE) Salicylates (15-30) mg/dL Urine Opiates Screen (Not Detect) Acetaminophen (<30) mcg/mL Ur Barbiturates Screen (Not Detect) Ur Phencyclidine Scrn (Not Detect) Ur Amphetamines Screen (Not Detect) U Benzodiazepines Scrn (Not Detect) [place] (0.60-1.20) mmol/L Urine Cocaine Screen (Not Detect) U Marijuana (THC) Screen (Not Detect) Ethyl Alcohol mg/dL COVID-19 (ENDY) Negative (Negative) COVID-19 Clin Com See Note 11/15/20 11/15/20 11/16/20 Range/Units 23:16 23:16 00:45 WBC (4.8-10.8) X10*3/uL RBC (4.20-5.50) X10*6/uL Hgb (12.0-16.0) g/dl Hct (37-47) % MCV (80-98) fL MCH (27.0-33.0) pg MCHC (31.0-35.0) g/dl RDW (11.0-16.0) % Plt Count (160-400) X10*3/uL MPV (9.4-12.3) fL Immature Gran % (Auto) (0.0-0.4) % Neut % (Auto) (45-73) % Lymph % (Auto) (20-40) % [place] % (Auto) (2-11) % Eos % (Auto) (0-4) % Baso % (Auto) (0-2) % Lymph # (Auto) (1.2-4.9) X10*3/uL [place] # (Auto) (0.1-1.2) X10*3/uL Eos # (Auto) (0.0-0.4) X10*3/uL Baso # (Auto) (0.0-0.2) X10*3/uL Abs Immat Gran (auto) (0.00-0.03) X10*3/uL Absolute Neuts (auto) (2.0-8.3) X10*3/uL Absolute Nucleated RBC (0.0-0.012) X10*3/uL Nucleated RBC % (auto) (0.0-0.2) /100WBC PT (10.8-13.0) SEC INR (0.9-1.1) APTT (24.1-38.0) SEC VBG pH 7.46 H (7.32-7.43) VBG pCO2 36 mmHg VBG pO2 126 mmHg VBG HCO3 26 mmol/L VBG O2 Saturation 99.0 % VBG Base Excess 2.7 mmol/L Sodium (135-145) mmol/L Potassium (3.3-5.1) mmol/l Chloride (96-108) mmol/L Carbon Dioxide (22-29) mmol/L Anion Gap (12-20) BUN (9-16) mg/dL Creatinine (0.5-1.4) mg/dL Estim Creat Clear Calc Estimated GFR Random Glucose (60-115) mg/dL Lactic Acid (0.5-2.0) mmol/L Calcium (8.4-10.2) mg/dL Total Bilirubin (0.0-1.0) mg/dL Direct Bilirubin (0.0-0.5) mg/dL AST (5-31) U/L ALT (0-31) U/L Alkaline Phosphatase (39-117) U/L Total Protein (6.5-8.0) g/dL Albumin (3.5-5.0) g/dL Urine Color STRAW Urine Appearance CLEAR Urine pH 6.5 (5.0-8.0) Ur Specific [place] <= 1.005 (1.005-1.025) Urine Protein NEG (NEG-TRACE) MG/DL Urine Glucose (UA) NEG (NEG) MG/DL Urine Ketones NEG (NEG) MG/DL Urine Blood NEG (NEG) Urine Nitrite NEG (NEG) Ur Leukocyte Esterase NEG (NEG) Urine Test NEGATIVE (NEGATIVE) Salicylates (15-30) mg/dL Urine Opiates Screen Not Detected (Not Detect) Acetaminophen (<30) mcg/mL Ur Barbiturates Screen Not Detected (Not Detect) Ur Phencyclidine Scrn Not Detected (Not Detect) Ur Amphetamines Screen Not Detected (Not Detect) U Benzodiazepines Scrn Not Detected (Not Detect) [place] (0.60-1.20) mmol/L Urine Cocaine Screen Not Detected (Not Detect) U Marijuana (THC) Screen Not Detected (Not Detect) Ethyl Alcohol mg/dL COVID-19 (ENDY) (Negative) COVID-19 Clin Com 11/16/20 11/16/20 Range/Units : 04:15 WBC (4.8-10.8) X10*3/uL RBC (4.20-5.50) X10*6/uL Hgb (12.0-16.0) g/dl Hct (37-47) % MCV (80-98) fL MCH (27.0-33.0) pg MCHC (31.0-35.0) g/dl RDW (11.0-16.0) % Plt Count (160-400) X10*3/uL MPV (9.4-12.3) fL Immature Gran % (Auto) (0.0-0.4) % Neut % (Auto) (45-73) % Lymph % (Auto) (20-40) % [place] % (Auto) (2-11) % Eos % (Auto) (0-4) % Baso % (Auto) (0-2) % Lymph # (Auto) (1.2-4.9) X10*3/uL [place] # (Auto) (0.1-1.2) X10*3/uL Eos # (Auto) (0.0-0.4) X10*3/uL Baso # (Auto) (0.0-0.2) X10*3/uL Abs Immat Gran (auto) (0.00-0.03) X10*3/uL Absolute Neuts (auto) (2.0-8.3) X10*3/uL Absolute Nucleated RBC (0.0-0.012) X10*3/uL Nucleated RBC % (auto) (0.0-0.2) /100WBC PT (10.8-13.0) SEC INR (0.9-1.1) APTT (24.1-38.0) SEC VBG pH (7.32-7.43) VBG pCO2 mmHg VBG pO2 mmHg VBG HCO3 mmol/L VBG O2 Saturation % VBG Base Excess mmol/L Sodium 139 (135-145) mmol/L Potassium 4.1 D (3.3-5.1) mmol/l Chloride 104 (96-108) mmol/L Carbon Dioxide 26 (22-29) mmol/L Anion Gap 13 (12-20) BUN 8 L (9-16) mg/dL Creatinine 0.64 (0.5-1.4) mg/dL Estim Creat Clear Calc 135.9 Estimated GFR > 60 Random Glucose 104 (60-115) mg/dL Lactic Acid (0.5-2.0) mmol/L Calcium 8.7 (8.4-10.2) mg/dL Total Bilirubin 0.3 (0.0-1.0) mg/dL Direct Bilirubin 0.2 (0.0-0.5) mg/dL AST 13 D (5-31) U/L ALT 20 (0-31) U/L Alkaline Phosphatase 85 (39-117) U/L Total Protein 5.9 L (6.5-8.0) g/dL Albumin 3.9 (3.5-5.0) g/dL Urine Color Urine Appearance Urine pH (5.0-8.0) Ur Specific [place] (1.005-1.025) Urine Protein (NEG-TRACE) MG/DL Urine Glucose (UA) (NEG) MG/DL Urine Ketones (NEG) MG/DL Urine Blood (NEG) Urine Nitrite (NEG) Ur Leukocyte Esterase (NEG) Urine Test (NEGATIVE) Salicylates < 5.0 L (15-30) mg/dL Urine Opiates Screen (Not Detect) Acetaminophen 24 (<30) mcg/mL Ur Barbiturates Screen (Not Detect) Ur Phencyclidine Scrn (Not Detect) Ur Amphetamines Screen (Not Detect) U Benzodiazepines Scrn (Not Detect) [place] < 0.10 L (0.60-1.20) mmol/L Urine Cocaine Screen (Not Detect) U Marijuana (THC) Screen (Not Detect) Ethyl Alcohol mg/dL COVID-19 (ENDY) (Negative) COVID-19 Clin Com ECG Data Attestation: I personally reviewed and interpreted this ECG as follows: Prior ECG tracings: available for review (10/07/2020 no acute changes on comparison) Interpretation: Normal sinus rhythm, HR-81, no evidence of acute ischemia, VT/QRS/QTC are within normal limits. Discharge Plan Discharge Prescriptions: No Action triamcinolone acetonide 0.5 % Cream 1 appl TOPICAL BID RF: 0 valacyclovir 1 gram Tablet 1,000 mg PO BID RF: 0 prazosin 1 mg Capsule 1 mg PO BEDTIME PRN (Reason: nightmare) RF: 0 acetaminophen 500 mg Tablet 500 mg PO TID PRN (Reason: Pain) RF: 0 omeprazole 20 mg Capsule,Delayed Release(Dr/Ec) 20 mg PO DAILY RF: 0 albuterol sulfate 90 mcg/actuation Hfa Aerosol Inhaler 2 puff INHALATION QID PRN (Reason: Shortness Of Breath Or Wheezing) RF: 0 sertraline 50 mg Tablet 50 mg PO DAILY RF: 0 fluticasone propion-salmeterol [AirDuo RespiClick] 232-14 mcg/actuation Aerosol Powdr Breath Activated 1 inh INHALATION BID RF: 0 trazodone 50 mg Tablet 50 mg PO BEDTIME PRN (Reason: Insomnia) Qty: 15 RF: 1 lithium carbonate 300 mg Tablet Extended Release 300 mg PO BID 15 Days Qty: 30 RF: 1 quetiapine [Seroquel] 50 mg tablet 50 mg PO BEDTIME Qty: 45 RF: 0
--- NOTE | 2020-11-15 23:21 | PC.NURSE ---
IV established, all labs obtained, urine and Covid obtained and sent. MD at bedside for eval. Plan to call poison control.
[2020-11-15 23:22] LABS: MANUAL DIFF FLAG NO
[2020-11-15 23:24] LABS: Basophils Absolute Auto 0.1 X10*3/uL (0.0-0.2); Basophils Percent Auto 0.9 % (0-2); Eosinophils Absolute Auto 0.1 X10*3/uL (0.0-0.4); Eosinophils Percent Auto 1.1 % (0-4); Hematocrit 42.8 % (37-47); Hemoglobin 13.9 g/dl (12.0-16.0); Imm Gran Abs Auto 0.02 X10*3/uL (0.00-0.03); Imm Gran Pct Auto 0.2 % (0.0-0.4); Lymphocytes Absolute Auto 2.6 X10*3/uL (1.2-4.9); Lymphocytes Percent Auto 32.1 % (20-40); Mean Corpuscular HGB Conc 32.5 g/dl (31.0-35.0); Mean Corpuscular Volume 92.2 fL (80-98); Mean Platelet Volume 9.8 fL (9.4-12.3); Monocytes Absolute Auto 0.6 X10*3/uL (0.1-1.2); Monocytes Percent Auto 6.7 % (2-11); Neutrophils Absolute Auto 4.8 X10*3/uL (2.0-8.3); Platelet Count 283 X10*3/uL (160-400); Red Blood Count 4.64 X10*6/uL (4.20-5.50); Red Cell Distribution Width 13.3 % (11.0-16.0); White Blood Count 8.2 X10*3/uL (4.8-10.8)
[2020-11-15 23:33] LABS: Glucose Urine UA NEG (NEG); Leukocyte Esterase Urine NEG (NEG); Nitrite Urine NEG (NEG); PH 6.5 (5.0-8.0); Specific Gravity - Urine <= 1.005 (1.005-1.025); Urine Blood NEG (NEG); Urine Ketones NEG (NEG); Urine Protein NEG (NEG-TRACE)
--- NOTE | 2020-11-15 23:34 | PC.NURSE ---
Per Poison Control to call back when labs are resulted.
[2020-11-15 23:37] LABS: Prothrombin Time 11.4 SEC (10.8-13.0)
[2020-11-15 23:40] LABS: Partial Thromboplastin Time 33.5 SEC (24.1-38.0)
[2020-11-15 23:47] LABS: Lactic Acid 0.9 mmol/L (0.5-2.0)
[2020-11-15 23:49] LABS: COVID-19 Test Negative (Negative); Ethanol < 10 mg/dL
[2020-11-15 23:50] LABS: Appearance Urine CLEAR; Color Urine STRAW
--- NOTE | 2020-11-15 23:50 | PC.NURSE ---
dairy laboratory technician at bedside to obtain EKG.
[2020-11-15 23:53] LABS: Amphetamine Screen Urine Not Detected (Not Detect); Barbiturates, Urine Not Detected (Not Detect); Benzodiazepines Screen Urine Not Detected (Not Detect); Cannabinoid Screen Urine Not Detected (Not Detect); Cocaine Screen Urine Not Detected (Not Detect); Opiate Screen Urine Not Detected (Not Detect); Phencyclidine Screen Urine Not Detected (Not Detect)
[2020-11-16] VITALS (11 sets, daily range): BP systolic 107–129; BP diastolic 59–77; PULSE 69–85; RESP 16–21; TEMP 36.1–36.9; O2SAT 89–95
[2020-11-16 00:01] LABS: UPreg QC Valid YES; Urine Pregnancy NEGATIVE (NEGATIVE)
[2020-11-16 00:04] LABS: Acetaminophen LAB 63 mcg/mL (<30); Alanine Aminotransferase 24 U/L (0-31); Albumin Level 4.3 g/dL (3.5-5.0); Alkaline Phosphatase 95 U/L (39-117); Anion Gap 17 (12-20); Aspartate Amino Transferase 25 U/L (5-31); Bilirubin Total 0.4 mg/dL (0.0-1.0); Blood Urea Nitrogen 8 mg/dL (9-16); Carbon Dioxide 23 mmol/L (22-29); Chloride 103 mmol/L (96-108); Creatinine Clr Calc Pharmacy 127.9; Estimated Glomerular Filt Rate > 60; Glucose Random 108 mg/dL (60-115); Potassium 5.3 mmol/l (3.3-5.1); Sodium 138 mmol/L (135-145); Total Protein 7.2 g/dL (6.5-8.0)
[2020-11-16 00:07] LABS: Salicylate < 5.0 mg/dL (15-30)
--- NOTE | 2020-11-16 00:24 | PC.NURSE ---
This RN calling poison control as labs and EKG are complete. Per poison control we will have to call you back, I have 5 hospitals waiting for a call back, it's going to be about a half hour. aware.
--- NOTE | 2020-11-16 00:45 | PC.NURSE ---
Labs obtained and sent. Sitter at bedside.
--- NOTE | 2020-11-16 00:50 | PC.NURSE ---
Poison Control returning call. Poison Control very flustered and overwhelmed, rushing this RN off the phone. Poison Control advising this RN to repeat labs including chemistry/ASA/Tylenol/AST/ALT @ 0115. Per Poison Control, activated charcoal was useless upon arrival. Per Poison Control, I have to go, I have 5 hospitals waiting for a call back, I can't do this!! aware of requested labs.
[2020-11-16 00:58] LABS: Base Excess VBG 2.7 mmol/L; HCO3 VBG 26 mmol/L; PCO2 VBG 36 mmHg; PO2 VBG 126 mmHg; pH VBG 7.46 (7.32-7.43)
[2020-11-16 01:57] LABS: Acetaminophen LAB 24 mcg/mL (<30); Alanine Aminotransferase 20 U/L (0-31); Albumin Level 3.9 g/dL (3.5-5.0); Alkaline Phosphatase 85 U/L (39-117); Anion Gap 13 (12-20); Aspartate Amino Transferase 13 U/L (5-31); Bilirubin Direct 0.2 mg/dL (0.0-0.5); Bilirubin Total 0.3 mg/dL (0.0-1.0); Blood Urea Nitrogen 8 mg/dL (9-16); Calcium 8.7 mg/dL (8.4-10.2); Carbon Dioxide 26 mmol/L (22-29); Chloride 104 mmol/L (96-108); Creatinine Clr Calc Pharmacy 135.9; Estimated Glomerular Filt Rate > 60; Glucose Random 104 mg/dL (60-115); Potassium 4.1 mmol/l (3.3-5.1); Sodium 139 mmol/L (135-145); Total Protein 5.9 g/dL (6.5-8.0)
--- NOTE | 2020-11-16 02:24 | PC.NURSE ---
This RN attempting to update Poison Control on repeat labs. Per Poison Control, I have 3 others hospitals on hold right now, I need to call you back. crm marketing specialist aware.
--- NOTE | 2020-11-16 02:26 | PC.NURSE ---
Plan to transfer pt to pod.
[2020-11-16 02:51] LABS: Salicylate < 5.0 mg/dL (15-30)
[2020-11-16 04:57] LABS: Lithium < 0.10 mmol/L (0.60-1.20)
--- NOTE | 2020-11-16 07:10 | PC.NURSE ---
Report received from MELONY Berg. Pt awake briefly, ambulated to bathroom, affect even, no concerns reported.
[2020-11-16] MEDS: Sertraline HCL 50 MG TABLET PO (08:52)
[2020-11-16] MEDS: Lithium Carbonate ER 300 MG TABLET.ER PO ×2 (08:52→20:02)
[2020-11-16] MEDS: Omeprazole 20 MG CAPSULE.DR PO (08:54)
--- NOTE | 2020-11-16 09:04 | PC.NURSE ---
Pt awakened for medications. Pt resting prior, denies any concerns at this time- ate breakfast prior - accepted medications. Affect even.
--- NOTE | 2020-11-16 09:12 | PC.NURSE ---
BHN in to evaluate
--- NOTE | 2020-11-16 10:22 | PC.NURSE ---
Pt resting, resp unlabored.
--- NOTE | 2020-11-16 10:49 | PC.NURSE ---
Pt resting, resp unlabored.
--- NOTE | 2020-11-16 11:58 | PC.NURSE ---
Pt awakened briefly- states that her MD recommended CPAP, though she doesn't always use it. Pt reports she is a smoker and has COPD, 02 sat range here within her normal range.
--- NOTE | 2020-11-16 13:01 | PC.NURSE ---
Pt awakened for lunch. Reports she feels 'tired' but states depression 'a little better.' Pt alert, oriented x3.
--- NOTE | 2020-11-16 13:46 | PC.NURSE ---
Pt resting, resp unlabored.
--- NOTE | 2020-11-16 15:46 | PC.NURSE ---
Pt encouraged to ambulate, pt oob to bathroom, conversing w/ staff.
--- NOTE | 2020-11-16 16:22 | PC.NURSE ---
Patient in bed appears sleeping at this time, no distress observed/reported, per report patient compliant with medication and had uneventful day. Will continue to monitor.
[2020-11-16] MEDS: QUEtiapine Fumarate 50 MG TABLET PO (20:02)
[2020-11-17 06:00] VITALS: BP 120/79; PULSE 73; RESP 18; TEMP 36.7; O2SAT 93
--- NOTE | 2020-11-17 07:01 | PC.NURSE ---
Report received. Pt currently sleeping, respirations even and unlabored, in no apparent distress. Pt is inpatient bedsearch.
[2020-11-17] MEDS: Omeprazole 20 MG CAPSULE.DR PO (08:48)
[2020-11-17] MEDS: Sertraline HCL 50 MG TABLET PO (08:48)
[2020-11-17] MEDS: Lithium Carbonate ER 300 MG TABLET.ER PO ×2 (08:48→20:56)
[2020-11-17 09:10] VITALS: BP 104/67; PULSE 73; RESP 12; TEMP 36.9; O2SAT 93
--- NOTE | 2020-11-17 19:25 | PC.NURSE ---
Report received. PT is using the phone. Calm and cooperative. PT is inpatient bed search.
[2020-11-17 20:30] VITALS: BP 143/86; PULSE 74; RESP 20; TEMP 36.8; O2SAT 95
[2020-11-17] MEDS: traZODone HCL 50 MG TABLET PO (20:56)
[2020-11-17] MEDS: QUEtiapine Fumarate 50 MG TABLET PO (20:57)
[2020-11-17] MEDS: Acetaminophen 325 MG TABLET 650 MG PO (22:01)
[2020-11-17 23:56] VITALS: BP 111/51; PULSE 69; RESP 18; TEMP 36.2; O2SAT 90
--- NOTE | 2020-11-18 07:07 | PC.NURSE ---
Report received. PT currently sleeping, respirations even and unlabored, in no apparent distress. Breakfast at bedside. Pt is inpatient bedsearch.
[2020-11-18 07:39] VITALS: BP 107/55; PULSE 74; RESP 18; TEMP -13.5; TEMP 7.7; O2SAT 93
[2020-11-18] MEDS: Lithium Carbonate ER 300 MG TABLET.ER PO ×2 (09:09→20:23)
[2020-11-18] MEDS: Omeprazole 20 MG CAPSULE.DR PO (09:09)
[2020-11-18] MEDS: Sertraline HCL 50 MG TABLET PO (09:09)
[2020-11-18] MEDS: Acetaminophen 325 MG TABLET 650 MG PO ×2 (12:37→20:23)
[2020-11-18 16:04] VITALS: BP 94/42; PULSE 85; RESP 15; TEMP 36.9; O2SAT 91
--- NOTE | 2020-11-18 18:48 | CT_ITS ---
EXAMINATION: CT HEAD WITHOUT CONTRAST CLINICAL INFORMATION: Confusion COMPARISON: Head CT 12/04/2019 TECHNIQUE: Contiguous axial imaging was performed from the skull base to vertex without intravenous administration of contrast. This CT examination was performed using dose optimization techniques as appropriate, variously including the following: *Automated exposure control *Adjustment of mA and/or kV according to patient size (this includes techniques or standardized protocols for targeted exams where dose is matched to indication/reason for exam; i.e. extremities or head) *Use of iterative reconstruction technique DLP: 684 mGy-cm FINDINGS: There is no evidence of acute intracranial hemorrhage or territorial infarction. No abnormal mass effect or midline shift is seen. Jarvis to white matter differentiation is well preserved. No extra-axial fluid collections are identified. The ventricles are normal in size. There is no abnormal attenuation within the brain parenchyma. The osseous structures and soft tissues are normal. The left mastoid air cells and visualized portions of the paranasal sinuses are well aerated. Similar underdevelopment of the right mastoid air cells. CT/CT head/brain wo con IMPRESSION: No acute intracranial pathology.
--- NOTE | 2020-11-18 19:09 | PC.NURSE ---
Report received. PT went to have CT scan done. Calm and cooperative. PT is inpatient bed search.
[2020-11-18] MEDS: QUEtiapine Fumarate 50 MG TABLET PO (20:24)
[2020-11-18 20:58] VITALS: BP 125/86; PULSE 76; RESP 18; TEMP 36.9; O2SAT 95
[2020-11-19] MEDS: Acetaminophen 325 MG TABLET 650 MG PO (03:25)
[2020-11-19 06:00] VITALS: BP 133/84; PULSE 71; RESP 18; TEMP 36.9; O2SAT 93
--- NOTE | 2020-11-19 07:07 | PC.NURSE ---
report taken from anish bundy pt here for si attempt, is sec 12 inpt bed search. medically cleared, pt up in [facility] conversing w staff, appears calm and cooperative. asking for coffee, provided. tm.
[2020-11-19] MEDS: Lithium Carbonate ER 300 MG TABLET.ER PO (08:53)
[2020-11-19] MEDS: Sertraline HCL 50 MG TABLET PO (08:53)
[2020-11-19] MEDS: Omeprazole 20 MG CAPSULE.DR PO (08:53)
[2020-11-19 08:59] VITALS: BP 123/76; PULSE 76; TEMP 36.9; O2SAT 91
--- NOTE | 2020-11-19 09:15 | PC.NURSE ---
pt requesting to leave, sts i usually dont even get admitted inpt for this long . pt reasonable and appropriate w this rn, call out to n to see if they can reeval pt, n sts they will send someone late morning to speak w pt. pt agreeable.
--- NOTE | 2020-11-19 10:01 | PC.NURSE ---
pt hanging out in [facility], conversing w pts and staff, pleasent affect. awaiting crisis.
--- NOTE | 2020-11-19 12:07 | PC.NURSE ---
pt expressing frustration w lack of daily msu from [facility]. n called and asked about when clinician will be out for msu, this rn only updated that pt has an accepting bed . when expressing to clinician pt would like to discuss possible discharge, this rn redirected to [facility] manager bank who sts if care team would like to see her and evaluate if she still needs iplc then they can do that . care team aware of interaction.
--- NOTE | 2020-11-19 13:01 | PC.NURSE ---
bhn here to speak w pt, pt appears to be choking while eating lunch, this rn over to attempt heimlich maneuver, successful. pt spit out large food bolus. pt now able to speak in full clear sentences, rr even/unlabored. given new clothes d/t slight urinary incontinence from maneuver.
== END 2020-11-19 14:02 | disposition home or self-care (01) ==
PROVIDERS: Emergency Provider Student in an Organized Health Care Education/Training Program
DX: T39.1X2A Poisoning by 4-Aminophenol derivatives, intentional self-harm, initial encounter (principal); Y92.009 Unspecified place in unspecified non-institutional (private) residence as the place of occurrence of the external cause; F33.1 Major depressive disorder, recurrent, moderate; R45.851 Suicidal ideations; Z20.822 Contact with and (suspected) exposure to COVID-19; F17.210 Nicotine dependence, cigarettes, uncomplicated; Z71.6 Tobacco abuse counseling; Z79.899 Other long term (current) drug therapy; Z63.4 Disappearance and death of family member; Z91.5 Personal history of self-harm
CPT/HCPCS: 36415; 70450; 80053; 80076; 80178; 80307; 80320; 81003; 81025; 82248; 82803; 83605; 85025; 85610; 85730; 87635; 93005; 99284; G0480

== ENCOUNTER 2020-11-27 08:57 | Inpatient (IN) | payer MEDICAID, SELFPAY ==
[2020-11-27] VITALS (9 sets, daily range): BP systolic 106–142; BP diastolic 65–88; PULSE 69–108; RESP 16–22; TEMP 36.8–37; O2SAT 92–98; BMI 35.5
--- NOTE | 2020-11-27 09:14 | XR_ITS ---
EXAMINATION: XR CHEST CLINICAL INFORMATION: Shortness of breath COMPARISON: 10/07/2020 TECHNIQUE: Frontal view of the chest was obtained. FINDINGS: Cardiac leads overlie the chest. The lungs are well expanded. Increased patchy opacity at the right base. No pleural effusion or pneumothorax. The cardiomediastinal silhouette is within normal limits of size, with a calcified aorta. No acute osseous abnormality. XR/XR chest 1V IMPRESSION: Increased opacity at the right lung base which could represent atelectasis or developing pneumonia.
--- NOTE | 2020-11-27 09:14 | ECG_ITS ---
Test Reason : SOB Blood Pressure : / mmHG Vent. Rate : 078 BPM Atrial Rate : 078 BPM P-R Int : 138 ms QRS Dur : 080 ms QT Int : 376 ms P-R-T Axes : 039 034 034 degrees QTc Int : 428 ms Normal sinus rhythm Normal ECG When compared with ECG of 15-NOV-2020 23:39, No significant change was found Referred By: Monisha Ricketts Electronically Signed By:Deangelo Gutierres
--- NOTE | 2020-11-27 09:21 | ED.URI ---
HPI - URI/Sore Throat General Chief Complaint: Upper Respiratory Symptoms Stated Complaint: DIFF BREATHING,COUGH,N/V,? COVID Time Seen by Provider: 11/27/20 09:02 Source: patient and EMS Mode of arrival: EMS Limitations: no limitations History of Present Illness HPI Narrative: 50 y/o female iwth history of COPD/asthma, borderline personality disorder, dipolar disorder, PTSD who presents with 2 days of productive cough, SOB, and chest tightness. She states she has is coughing up cream colored phlegm and having coughing fits so severe she is vomiting. She denies fever or chills. She states her chest hurts when she coughs or when she touches it. She has some abdominal pain, nausea and body aches as well. No known exposure to COVID-19. Has had multiple COVID tests, most recently 11/15. Related Data Home Medications Medication Instructions Recorded Confirmed acetaminophen 500 mg PO TID PRN 10/08/20 10/08/20 albuterol sulfate 2 puff INHALATION QID PRN 10/08/20 11/16/20 fluticasone propion-salmeterol 1 inh INHALATION BID 10/08/20 11/16/20 [AirDuo RespiClick] omeprazole 20 mg PO DAILY 10/08/20 11/16/20 prazosin 1 mg PO BEDTIME PRN 10/08/20 11/16/20 sertraline 50 mg PO DAILY 10/08/20 11/16/20 triamcinolone acetonide 1 appl TOPICAL BID 10/08/20 10/08/20 valacyclovir 1,000 mg PO BID 10/08/20 11/16/20 Previous Rx's Medication Instructions Recorded lithium carbonate 300 mg PO BID 15 Days #30 tab 10/15/20 quetiapine [Seroquel] 50 mg PO BEDTIME #45 tab 10/15/20 trazodone 50 mg PO BEDTIME PRN #15 tab 10/15/20 Allergies Allergy/AdvReac Type Severity Reaction Status Date / Time aspirin [Aspirin] Allergy Severe HIVES,THROAT Unverified 07/17/20 17:00 SWELLS bee pollen [BEE STINGS] Allergy Severe ANAPHYLAXIS Unverified 07/17/20 17:00 diphenhydramine Allergy Severe hives, Unverified 07/17/20 17:00 [From BENADRYL ALLERGY] throat swells Penicillins [PCN] Allergy Severe HIVES Unverified 07/17/20 17:00 THROAT SWELLS Sulfa (Sulfonamide Allergy Intermediate HIVES Unverified 07/17/20 17:00 Antibiotics) [SULFA (SULFONAMIDE ANTIBIOTICS)] tramadol [TRAMADOL] Allergy Intermediate ITCHING Unverified 07/17/20 17:00 latex [LATEX] Allergy Unknown UNKNOWN Unverified 07/17/20 17:00 penicillin G Allergy Unknown Unknown Verified 10/09/20 11:01 bee stings Allergy Unknown Unknown Uncoded 10/09/20 11:01 DairyCare Allergy Unknown Unknown Uncoded 10/09/20 11:01 sulfa drugs Allergy Unknown Unknown Uncoded 10/09/20 11:01 Review of Systems Review of Systems: Constitutional: No Fever, No Chills ENT/Mouth: No sore throat, No Rhinorrhea, No Swallowing Difficulty Cardiovascular: + Chest Pain, + SOB, No Orthopnea, No Edema Respiratory: + Cough, + Sputum, + Wheezing, + dyspnea Gastrointestinal: + Nausea, + Vomiting, No Diarrhea, + abdominal Pain Genitourinary: No Dysuria, No Urinary Frequency, No Hematuria Musculoskeletal: No joint pain, + Myalgias Skin: No Skin Lesions, No rash Neuro: +Weakness, No Numbness, No Dizziness, + Headache Psych: + Anxiety/Panic, No Depression Heme/Lymph: No Bruising, No Lymphadenopathy PMFSH Past Medical History Medical History Bipolar disorder Borderline personality disorder COPD (chronic obstructive pulmonary disease) Depression Family History Family History Other COPD (chronic obstructive pulmonary disease) Social History Social History Household Members: None Housing: Homeless Alcohol intake: unknown Smoking Status: Unknown if ever smoked Tobacco Type: Cigarette Packs Per Day: 2 Cigarettes Per Day: 40.0 Second Hand Smoke Exposure: No Use of substances other than those prescribed or required for medical reasons: Unknown Advance Directives: No Advance Directives Information Provided: No Physical Exam Vital Signs: Vital Signs: Last Vital Signs Temp 98.6 F 11/27/20 09:09 Pulse 79 11/27/20 12:18 Resp 16 11/27/20 11:24 BP 132/76 11/27/20 11:24 Pulse Ox 93 11/27/20 11:24 Body Mass Index 35.5 Appearance: Alert. Oriented X3. No acute distress. Eyes: Pupils equal, round and reactive to light. ENT: Pharynx normal. Neck: Normal inspection. Neck supple. CVS: tachycardic, regular rhythm. Pulses normal. Respiratory: mild respiratory distress, expiratory wheezes throughout, barking cough, prolonged expiratory phase Abdomen: Obese, soft and nontender. +BS x4 Skin: Skin warm and dry. Normal skin color. Normal skin turgor. No rashes. Extremities: No lower extremity edema. Neuro: Oriented X 3. No motor deficit. No sensory deficit. Course Course Course Narrative: 50 y/o female with history of asthma/COPD, personality disorder, PTSD, bipolar disorder who is presenting with SOB, cough, and chest discomfort. Concern for asthma/COPD exacerbation vs pneumonia vs COVID-19. CXR, EKG and labs pending. Chest pain is reproducible, doubt ACS. Will give IV steroids and antitussive now. She is wheezey with mild resp distress, SpO2 low 90's so placed on 2L O2 for comfort. Reevaluation(s) Reevaluation #1: No leukocytosis, lactic acid normal. Troponin negative and BNP within normal limits. CXR showing possible early infiltrate, although pro-angelica is low. COVID negative. Will give dose of IV doxycycline (allergic to PCN) to cover for now. Coughing significantly improved with steroids and Tessalon. Will attempt to wean off of O2. Now that COVID is negative will give nebulizer treatment and reassess. Reevaluation #2: Off oxygen SpO2 87%. Back on 2L NC with continued wheezing and dyspnea. HR 120s after nebulizer treatment. Will plan for admission and asthma exacerbation and possible CAP vs bronchitis. Reevaluation #3: Spoke with Dr. Knight who will come evaluate patient for admission - viral resp panel added per request. Patient agreeable to admission. MDM - URI/Sore Throat Lab Data Result diagrams: 11/27/20 09:42 11/27/20 09:42 Labs: Lab Results 11/27/20 11/27/20 11/27/20 Range/Units 09:42 09:42 09:42 WBC 5.4 (4.8-10.8) X10*3/uL RBC 4.64 (4.20-5.50) X10*6/uL Hgb 13.9 (12.0-16.0) g/dl Hct 43.4 (37-47) % MCV 93.5 (80-98) fL MCH 30.0 (27.0-33.0) pg MCHC 32.0 (31.0-35.0) g/dl RDW 13.1 (11.0-16.0) % Plt Count 342 (160-400) X10*3/uL MPV 10.1 (9.4-12.3) fL Immature Gran % (Auto) 0.4 (0.0-0.4) % Neut % (Auto) 55.6 (45-73) % Lymph % (Auto) 34.5 (20-40) % Levy % (Auto) 6.9 (2-11) % Eos % (Auto) 1.1 (0-4) % Baso % (Auto) 1.5 (0-2) % Lymph # (Auto) 1.9 (1.2-4.9) X10*3/uL Levy # (Auto) 0.4 (0.1-1.2) X10*3/uL Eos # (Auto) 0.1 (0.0-0.4) X10*3/uL Baso # (Auto) 0.1 (0.0-0.2) X10*3/uL Abs Immat Gran (auto) 0.02 (0.00-0.03) X10*3/uL Absolute Neuts (auto) 3.0 (2.0-8.3) X10*3/uL Absolute Nucleated RBC 0.000 (0.0-0.012) X10*3/uL Nucleated RBC % (auto) 0.0 (0.0-0.2) /100WBC Hold Blue Top SEE NOTE Sodium 143 (135-145) mmol/L Potassium 4.8 (3.3-5.1) mmol/l Chloride 105 (96-108) mmol/L Carbon Dioxide 26 (22-29) mmol/L Anion Gap 17 (12-20) BUN 13 D (9-16) mg/dL Creatinine 0.69 (0.5-1.4) mg/dL Estim Creat Clear Calc 117.5 Estimated GFR > 60 Random Glucose 92 (60-115) mg/dL Lactic Acid (0.5-2.0) mmol/L Calcium 9.6 D (8.4-10.2) mg/dL Magnesium 1.8 (1.6-2.6) mg/dL Total Bilirubin 0.5 (0.0-1.0) mg/dL Direct Bilirubin < 0.2 (0.0-0.5) mg/dL AST 16 (5-31) U/L ALT 20 (0-31) U/L Alkaline Phosphatase 87 (39-117) U/L Troponin I High Sens (<3.5-17.0) ng/L B-Natriuretic Peptide (<100) pg/mL Total Protein 6.9 (6.5-8.0) g/dL Albumin 4.4 (3.5-5.0) g/dL Procalcitonin ng/mL Urine Color Urine Appearance Urine pH (5.0-8.0) Ur Specific [place] (1.005-1.025) Urine Protein (NEG-TRACE) MG/DL Urine Glucose (UA) (NEG) MG/DL Urine Ketones (NEG) MG/DL Urine Blood (NEG) Urine Nitrite (NEG) Ur Leukocyte Esterase (NEG) Coronavirus (PCR) (Negative) Influenza Type A (PCR) (Negative) Influenza Type B (PCR) (Negative) RSV RNA Qual (PCR) (Negative) 11/27/20 11/27/20 11/27/20 Range/Units 09:42 09:42 09:42 WBC (4.8-10.8) X10*3/uL RBC (4.20-5.50) X10*6/uL Hgb (12.0-16.0) g/dl Hct (37-47) % MCV (80-98) fL MCH (27.0-33.0) pg MCHC (31.0-35.0) g/dl RDW (11.0-16.0) % Plt Count (160-400) X10*3/uL MPV (9.4-12.3) fL Immature Gran % (Auto) (0.0-0.4) % Neut % (Auto) (45-73) % Lymph % (Auto) (20-40) % Levy % (Auto) (2-11) % Eos % (Auto) (0-4) % Baso % (Auto) (0-2) % Lymph # (Auto) (1.2-4.9) X10*3/uL Levy # (Auto) (0.1-1.2) X10*3/uL Eos # (Auto) (0.0-0.4) X10*3/uL Baso # (Auto) (0.0-0.2) X10*3/uL Abs Immat Gran (auto) (0.00-0.03) X10*3/uL Absolute Neuts (auto) (2.0-8.3) X10*3/uL Absolute Nucleated RBC (0.0-0.012) X10*3/uL Nucleated RBC % (auto) (0.0-0.2) /100WBC Hold Blue Top Sodium (135-145) mmol/L Potassium (3.3-5.1) mmol/l Chloride (96-108) mmol/L Carbon Dioxide (22-29) mmol/L Anion Gap (12-20) BUN (9-16) mg/dL Creatinine (0.5-1.4) mg/dL Estim Creat Clear Calc Estimated GFR Random Glucose (60-115) mg/dL Lactic Acid 1.1 (0.5-2.0) mmol/L Calcium (8.4-10.2) mg/dL Magnesium (1.6-2.6) mg/dL Total Bilirubin (0.0-1.0) mg/dL Direct Bilirubin (0.0-0.5) mg/dL AST (5-31) U/L ALT (0-31) U/L Alkaline Phosphatase (39-117) U/L Troponin I High Sens < 3.5 (<3.5-17.0) ng/L B-Natriuretic Peptide 62 (<100) pg/mL Total Protein (6.5-8.0) g/dL Albumin (3.5-5.0) g/dL Procalcitonin ng/mL Urine Color Urine Appearance Urine pH (5.0-8.0) Ur Specific [place] (1.005-1.025) Urine Protein (NEG-TRACE) MG/DL Urine Glucose (UA) (NEG) MG/DL Urine Ketones (NEG) MG/DL Urine Blood (NEG) Urine Nitrite (NEG) Ur Leukocyte Esterase (NEG) Coronavirus (PCR) NEGATIVE (Negative) Influenza Type A (PCR) NEGATIVE (Negative) Influenza Type B (PCR) NEGATIVE (Negative) RSV RNA Qual (PCR) NEGATIVE (Negative) 11/27/20 11/27/20 Range/Units 09:42 09:42 WBC (4.8-10.8) X10*3/uL RBC (4.20-5.50) X10*6/uL Hgb (12.0-16.0) g/dl Hct (37-47) % MCV (80-98) fL MCH (27.0-33.0) pg MCHC (31.0-35.0) g/dl RDW (11.0-16.0) % Plt Count (160-400) X10*3/uL MPV (9.4-12.3) fL Immature Gran % (Auto) (0.0-0.4) % Neut % (Auto) (45-73) % Lymph % (Auto) (20-40) % Levy % (Auto) (2-11) % Eos % (Auto) (0-4) % Baso % (Auto) (0-2) % Lymph # (Auto) (1.2-4.9) X10*3/uL Levy # (Auto) (0.1-1.2) X10*3/uL Eos # (Auto) (0.0-0.4) X10*3/uL Baso # (Auto) (0.0-0.2) X10*3/uL Abs Immat Gran (auto) (0.00-0.03) X10*3/uL Absolute Neuts (auto) (2.0-8.3) X10*3/uL Absolute Nucleated RBC (0.0-0.012) X10*3/uL Nucleated RBC % (auto) (0.0-0.2) /100WBC Hold Blue Top Sodium (135-145) mmol/L Potassium (3.3-5.1) mmol/l Chloride (96-108) mmol/L Carbon Dioxide (22-29) mmol/L Anion Gap (12-20) BUN (9-16) mg/dL Creatinine (0.5-1.4) mg/dL Estim Creat Clear Calc Estimated GFR Random Glucose (60-115) mg/dL Lactic Acid (0.5-2.0) mmol/L Calcium (8.4-10.2) mg/dL Magnesium (1.6-2.6) mg/dL Total Bilirubin (0.0-1.0) mg/dL Direct Bilirubin (0.0-0.5) mg/dL AST (5-31) U/L ALT (0-31) U/L Alkaline Phosphatase (39-117) U/L Troponin I High Sens (<3.5-17.0) ng/L B-Natriuretic Peptide (<100) pg/mL Total Protein (6.5-8.0) g/dL Albumin (3.5-5.0) g/dL Procalcitonin < 0.02 ng/mL Urine Color YELLOW Urine Appearance HAZY Urine pH 5.5 (5.0-8.0) Ur Specific [place] >= 1.030 H (1.005-1.025) Urine Protein NEG (NEG-TRACE) MG/DL Urine Glucose (UA) NEG (NEG) MG/DL Urine Ketones NEG (NEG) MG/DL Urine Blood NEG (NEG) Urine Nitrite NEG (NEG) Ur Leukocyte Esterase NEG (NEG) Coronavirus (PCR) (Negative) Influenza Type A (PCR) (Negative) Influenza Type B (PCR) (Negative) RSV RNA Qual (PCR) (Negative) Critical Care Time Critical Care Time Critical Care Time: Yes Total Critical Care Time: 35 Attestation: 50 y/o female presenting with acute hypoxic respiratory failure 2/2 asthma vs COPD exacerbation with diffuse wheezing and respiratory distress. Time spent evaluating old records, re-evaluation at bedside of respiratory status and coordinating care. Discharge Plan Discharge Clinical Impression: Acute respiratory failure with hypoxia Asthma exacerbation Qualifiers: Asthma severity: moderate Asthma persistence: persistent Qualified Code(s): J45.41 - Moderate persistent asthma with (acute) exacerbation Patient Disposition: Admitted As Inpatient
[2020-11-27] MEDS: Benzonatate 100 MG CAPSULE 200 MG PO (09:50)
[2020-11-27] MEDS: 0.9 % Sodium Chloride 1,000 ML 999 ML IVCONT (09:50)
[2020-11-27] MEDS: methylPREDNISolone Sod Succ/PF 125 MG/2 ML VIAL IVPUSH (09:50)
[2020-11-27 09:53] LABS: MANUAL DIFF FLAG NO
[2020-11-27 09:55] LABS: Basophils Absolute Auto 0.1 X10*3/uL (0.0-0.2); Basophils Percent Auto 1.5 % (0-2); Eosinophils Absolute Auto 0.1 X10*3/uL (0.0-0.4); Eosinophils Percent Auto 1.1 % (0-4); Hematocrit 43.4 % (37-47); Hemoglobin 13.9 g/dl (12.0-16.0); Imm Gran Abs Auto 0.02 X10*3/uL (0.00-0.03); Imm Gran Pct Auto 0.4 % (0.0-0.4); Lymphocytes Absolute Auto 1.9 X10*3/uL (1.2-4.9); Lymphocytes Percent Auto 34.5 % (20-40); Mean Corpuscular Volume 93.5 fL (80-98); Mean Platelet Volume 10.1 fL (9.4-12.3); Monocytes Absolute Auto 0.4 X10*3/uL (0.1-1.2); Monocytes Percent Auto 6.9 % (2-11); Neutrophils Percent Auto 55.6 % (45-73); Platelet Count 342 X10*3/uL (160-400); Red Blood Count 4.64 X10*6/uL (4.20-5.50); Red Cell Distribution Width 13.1 % (11.0-16.0); White Blood Count 5.4 X10*3/uL (4.8-10.8)
[2020-11-27 10:01] LABS: Glucose Urine UA NEG (NEG); Leukocyte Esterase Urine NEG (NEG); Nitrite Urine NEG (NEG); PH 5.5 (5.0-8.0); Specific Gravity - Urine >= 1.030 (1.005-1.025); Urine Blood NEG (NEG); Urine Ketones NEG (NEG); Urine Protein NEG (NEG-TRACE)
[2020-11-27 10:02] LABS: Appearance Urine HAZY; Color Urine YELLOW
[2020-11-27 10:13] LABS: Lactic Acid 1.1 mmol/L (0.5-2.0)
[2020-11-27 10:22] LABS: B Type Natriuretic Peptide 62 pg/mL (<100); Troponin-I High Sensitivity < 3.5 ng/L (<3.5-17.0)
[2020-11-27 10:23] LABS: Alanine Aminotransferase 20 U/L (0-31); Albumin Level 4.4 g/dL (3.5-5.0); Alkaline Phosphatase 87 U/L (39-117); Anion Gap 17 (12-20); Aspartate Amino Transferase 16 U/L (5-31); Bilirubin Direct < 0.2 mg/dL (0.0-0.5); Bilirubin Total 0.5 mg/dL (0.0-1.0); Blood Urea Nitrogen 13 mg/dL (9-16); Calcium 9.6 mg/dL (8.4-10.2); Carbon Dioxide 26 mmol/L (22-29); Chloride 105 mmol/L (96-108); Creatinine Clr Calc Pharmacy 117.5; Estimated Glomerular Filt Rate > 60; Glucose Random 92 mg/dL (60-115); Magnesium 1.8 mg/dL (1.6-2.6); Potassium 4.8 mmol/l (3.3-5.1); Sodium 143 mmol/L (135-145); Total Protein 6.9 g/dL (6.5-8.0)
[2020-11-27 10:32] LABS: Influenza A PCR NEGATIVE (Negative); Influenza B PCR NEGATIVE (Negative); Resp Syncy Virus RNA Qual PCR NEGATIVE (Negative); SARS COV2 PCR INHOUSE NEGATIVE (Negative)
[2020-11-27] MEDS: Doxycycline Hyclate 100 MG in 0.9 % Sodium Chloride 250 ML 166.67 MG IV (11:07)
[2020-11-27 11:52] LABS: Procalcitonin < 0.02 ng/mL
[2020-11-27] MEDS: Albuterol Sulfate (0.083%) 2.5 MG/3 ML VIAL.NEB 10 MG INHALE (12:17)
[2020-11-27 14:10] LABS: Adenovirus PCR Not Detected (Not Detect.); Bordetella parapertussis PCR Not Detected (Not Detect.); Bordetella pertussis PCR Not Detected (Not Detect.); Chlamydia pneumoniae PCR Not Detected (Not Detect.); Coronavirus 229E PCR Not Detected (Not Detect.); Coronavirus HKU1 PCR Not Detected (Not Detect.); Coronavirus NL63 PCR Not Detected (Not Detect.); Coronavirus OC43 PCR Not Detected (Not Detect.); Human metapneumovirus PCR Not Detected (Not Detect.); Influenza A PCR Not Detected (Not Detect.); Influenza B PCR Not Detected (Not Detect.); Mycoplasma pneumoniae PCR Not Detected (Not Detect.); Parainfluenza 1 PCR Not Detected (Not Detect.); Parainfluenza 2 PCR Not Detected (Not Detect.); Parainfluenza 3 PCR Not Detected (Not Detect.); Parainfluenza 4 PCR Not Detected (Not Detect.); RSV PCR Not Detected (Not Detect.); Rhino/Enterovirus PCR Not Detected (Not Detect.); SARS-CoV-2 PCR Not Detected (Not Detect.)
[2020-11-27] MEDS: Acetaminophen 325 MG TABLET 650 MG PO (14:45)
--- NOTE | 2020-11-27 16:15 | PM.IMHP ---
History of Present Illness Date of Service: 11/27/20 Chief Complaint: shortness of breath and cough This is a 50-year-old female with a past medical history of COPD/asthma, who is a active smoker and presents to the hospital with complaints of shortness of breath and nonproductive cough over the last 2-3 days. Patient reports [place] [address] and is not entirely sure if she has been exposed to somebody with COVID. She reports some subjective fevers and chills but denies any documented fevers. She reports that she tried to take her updrafts and inhalers which did not make much of a difference and so she presented to the hospital. Patient reports that she is currently smoking 5 cigarettes daily which is down from about 2 packs about 1 year ago. She denies any illicit substance, particularly opiates. In the emergency room room, patient was given a dose of IV steroids and multiple rounds of updraft treatments. Despite this, patient remained tachypneic and tachycardic along with oxygen saturations dropping into the 87-88 range (per verbal report by the ER provider) and admission was requested. Review of Systems Review of Systems: General - +fevers and chills; +malaise HEENT -denies blurred vision, denies headache, denies sore throat Cardiovascular - denies chest pain or palpitations, denies edema Respiratory - +coughing/wheezing/sob; cough: non-productive Gastrointestinal - denies abdominal pain, nausea, vomiting, diarrhea - denies flank pain, denies dysuria, denies frequency or urgency Musculoskeletal - denies back pain, denies hip pain, denies knee pain, denies shoulder pain Neurological - denies any focal weakness or numbness Skin, denies any bruising or redness Psychiatric - denies any suicidal ideation, hallucinations, homicidal ideation Endocrinology - denies intolerance to hot / cold temperatures [facility] Medical History (Updated 11/27/20 @ 14:05 by LASHONDA Chan) Bipolar disorder Borderline personality disorder COPD (chronic obstructive pulmonary disease) Depression Family History (Updated 11/27/20 @ 16:21 by Kevin Knight MD) Mother COPD (chronic obstructive pulmonary disease) Surgical History (Updated 11/27/20 @ 16:21 by Kevin Knight MD) History of ankle surgery History of appendectomy History of back surgery Hx of cholecystectomy Social History (Updated 11/27/20 @ 16:22 by Kevin Knight MD) Household Members: None Housing: Homeless Alcohol intake: former Smoking Status: Unknown if ever smoked Tobacco Type: Cigarette Cigarettes Per Day: 5 Years Smoked: >20 Second Hand Smoke Exposure: No Use of substances other than those prescribed or required for medical reasons: Unknown Advance Directives: No Advance Directives Information Provided: No Meds Allergies Allergy/AdvReac Type Severity Reaction Status Date / Time aspirin [Aspirin] Allergy Severe HIVES,THROAT Unverified 07/17/20 17:00 SWELLS bee pollen [BEE STINGS] Allergy Severe ANAPHYLAXIS Unverified 07/17/20 17:00 diphenhydramine Allergy Severe hives, Unverified 07/17/20 17:00 [From BENADRYL ALLERGY] throat swells Penicillins [PCN] Allergy Severe HIVES Unverified 07/17/20 17:00 THROAT SWELLS Sulfa (Sulfonamide Allergy Intermediate HIVES Unverified 07/17/20 17:00 Antibiotics) [SULFA (SULFONAMIDE ANTIBIOTICS)] tramadol [TRAMADOL] Allergy Intermediate ITCHING Unverified 07/17/20 17:00 latex [LATEX] Allergy Unknown UNKNOWN Unverified 07/17/20 17:00 penicillin G Allergy Unknown Unknown Verified 10/09/20 11:01 bee stings Allergy Unknown Unknown Uncoded 10/09/20 11:01 DairyCare Allergy Unknown Unknown Uncoded 10/09/20 11:01 sulfa drugs Allergy Unknown Unknown Uncoded 10/09/20 11:01 Home Medications Medication Instructions Recorded Confirmed Type acetaminophen 500 mg PO TID PRN 10/08/20 11/27/20 History albuterol sulfate 2 puff INHALATION QID PRN 10/08/20 11/27/20 History fluticasone propion-salmeterol 1 inh INHALATION BID 10/08/20 11/27/20 History [AirDuo RespiClick] omeprazole 20 mg PO DAILY 10/08/20 11/27/20 History prazosin 1 mg PO BEDTIME PRN 10/08/20 11/16/20 History sertraline 50 mg PO DAILY 10/08/20 11/16/20 History valacyclovir 1,000 mg PO BID 10/08/20 11/16/20 History lithium carbonate 300 mg PO BID 11/27/20 11/27/20 History Physical Exam Vital Signs and Narrative: Vital Signs: Last Vital Signs Temp 98.6 F 11/27/20 09:09 Pulse 107 H 11/27/20 14:27 Resp 20 11/27/20 14:27 BP 129/74 11/27/20 14:27 Pulse Ox 94 11/27/20 14:27 Body Mass Index 35.5 Const: Other: Constitutional - Awake and Alert, No apparent distress at rest Eyes - PERRLA, EOMI Cardiovascular - S1S2, RRR, No edema Respiratory - Saturations 92-94 on 2L; dimished sounds with scattered wheezing; no respiratory distress at rest, but tachypnea into the mid 20's even with minimal exertion (having conversation for 5 minutes) Gastrointestinal - NT / ND; +BS; No rebound or guarding - No CVA tenderness Extremities - no calf tenderness bilaterally, no swelling Musculoskeletal - Normal inspection, normal ROM Skin - Warm/Dry Neurological - Alert & oriented x3, No focal deficit Psychological - Appropriate affect Results Labs CBC and Chem 7: 11/27/20 09:42 11/27/20 09:42 Labs: Laboratory Results - last 24 hr 11/27/20 11/27/20 11/27/20 09:42 09:42 09:42 MCV 93.5 MCH 30.0 MCHC 32.0 RDW 13.1 Plt Count 342 MPV 10.1 Immature Gran % (Auto) 0.4 Neut % (Auto) 55.6 Lymph % (Auto) 34.5 [place] % (Auto) 6.9 Eos % (Auto) 1.1 Baso % (Auto) 1.5 Lymph # (Auto) 1.9 Mitchell # (Auto) 0.4 Eos # (Auto) 0.1 Baso # (Auto) 0.1 Abs Immat Gran (auto) 0.02 Absolute Neuts (auto) 3.0 Absolute Nucleated RBC 0.000 Nucleated RBC % (auto) 0.0 Hold Blue Top SEE NOTE Anion Gap 17 Estim Creat Clear Calc 117.5 Estimated GFR > 60 Random Glucose 92 Lactic Acid Calcium 9.6 D Magnesium 1.8 Total Bilirubin 0.5 Direct Bilirubin < 0.2 AST 16 ALT 20 Alkaline Phosphatase 87 Troponin I High Sens B-Natriuretic Peptide Total Protein 6.9 Albumin 4.4 Procalcitonin Urine Color Urine Appearance Urine pH Ur Specific [place] Urine Protein Urine Glucose (UA) Urine Ketones Urine Blood Urine Nitrite Ur Leukocyte Esterase Respiratory Panel [place] Adenovirus (Rapid PCR) B.pert (TEM-PCR) B.parapertussis DNA PCR C. pneumoniae DNA (PCR) Coronavirus (PCR) Coronavirus OC43 (PCR) Coronavirus HKU1 (PCR) Coronavirus 229E (PCR) Coronavirus NL63 (PCR) Human Metapneumovir PCR Influenza A (RT-PCR) Influenza Type A (PCR) Influenza B (RT-PCR) Influenza Type B (PCR) M. pneumoniae (PCR) Parainfluenza 1 (PCR) Parainfluenza 2 (PCR) Parainfluenza 3 (PCR) Parainfluenza 4 (PCR) RSV (PCR) RSV RNA Qual (PCR) Entero/Rhino (PCR) SARS-CoV-2 RNA (RT-PCR) 11/27/20 11/27/20 11/27/20 09:42 09:42 09:42 MCV MCH MCHC RDW Plt Count MPV Immature Gran % (Auto) Neut % (Auto) Lymph % (Auto) [place] % (Auto) Eos % (Auto) Baso % (Auto) Lymph # (Auto) [place] # (Auto) Eos # (Auto) Baso # (Auto) Abs Immat Gran (auto) Absolute Neuts (auto) Absolute Nucleated RBC Nucleated RBC % (auto) Hold Blue Top Anion Gap Estim Creat Clear Calc Estimated GFR Random Glucose Lactic Acid 1.1 Calcium Magnesium Total Bilirubin Direct Bilirubin AST ALT Alkaline Phosphatase Troponin I High Sens < 3.5 B-Natriuretic Peptide 62 Total Protein Albumin Procalcitonin Urine Color Urine Appearance Urine pH Ur Specific [place] Urine Protein Urine Glucose (UA) Urine Ketones Urine Blood Urine Nitrite Ur Leukocyte Esterase Respiratory Panel [place] Adenovirus (Rapid PCR) B.pert (TEM-PCR) B.parapertussis DNA PCR C. pneumoniae DNA (PCR) Coronavirus (PCR) NEGATIVE Coronavirus OC43 (PCR) Coronavirus HKU1 (PCR) Coronavirus 229E (PCR) Coronavirus NL63 (PCR) Human Metapneumovir PCR Influenza A (RT-PCR) Influenza Type A (PCR) NEGATIVE Influenza B (RT-PCR) Influenza Type B (PCR) NEGATIVE M. pneumoniae (PCR) Parainfluenza 1 (PCR) Parainfluenza 2 (PCR) Parainfluenza 3 (PCR) Parainfluenza 4 (PCR) RSV (PCR) RSV RNA Qual (PCR) NEGATIVE Entero/Rhino (PCR) SARS-CoV-2 RNA (RT-PCR) 11/27/20 11/27/20 11/27/20 09:42 09:42 09:42 MCV MCH MCHC RDW Plt Count MPV Immature Gran % (Auto) Neut % (Auto) Lymph % (Auto) [place] % (Auto) Eos % (Auto) Baso % (Auto) Lymph # (Auto) [place] # (Auto) Eos # (Auto) Baso # (Auto) Abs Immat Gran (auto) Absolute Neuts (auto) Absolute Nucleated RBC Nucleated RBC % (auto) Hold Blue Top Anion Gap Estim Creat Clear Calc Estimated GFR Random Glucose Lactic Acid Calcium Magnesium Total Bilirubin Direct Bilirubin AST ALT Alkaline Phosphatase Troponin I High Sens B-Natriuretic Peptide Total Protein Albumin Procalcitonin < 0.02 Urine Color YELLOW Urine Appearance HAZY Urine pH 5.5 Ur Specific [place] >= 1.030 H Urine Protein NEG Urine Glucose (UA) NEG Urine Ketones NEG Urine Blood NEG Urine Nitrite NEG Ur Leukocyte Esterase NEG Respiratory Panel [place] See Note Adenovirus (Rapid PCR) Not Detected B.pert (TEM-PCR) Not Detected B.parapertussis DNA PCR Not Detected C. pneumoniae DNA (PCR) Not Detected Coronavirus (PCR) Coronavirus OC43 (PCR) Not Detected Coronavirus HKU1 (PCR) Not Detected Coronavirus 229E (PCR) Not Detected Coronavirus NL63 (PCR) Not Detected Human Metapneumovir PCR Not Detected Influenza A (RT-PCR) Not Detected Influenza Type A (PCR) Influenza B (RT-PCR) Not Detected Influenza Type B (PCR) M. pneumoniae (PCR) Not Detected Parainfluenza 1 (PCR) Not Detected Parainfluenza 2 (PCR) Not Detected Parainfluenza 3 (PCR) Not Detected Parainfluenza 4 (PCR) Not Detected RSV (PCR) Not Detected RSV RNA Qual (PCR) Entero/Rhino (PCR) Not Detected SARS-CoV-2 RNA (RT-PCR) Not Detected Imaging Radiologist's Impressions: Impressions Chest X-Ray 11/27/20 09:14 IMPRESSION: Increased opacity at the right lung base which could represent atelectasis or developing pneumonia. Assessment and Plan (1) Acute respiratory failure with hypoxia: Status: Acute This is a 50-year-old female who is active smoker and has a history of COPD/asthma and is presenting to the hospital complaints of progressive shortness of breath for several days prior to arrival. Her workup is consistent with acute respiratory failure with hypoxia secondary to COPD exacerbation 1. Acute respiratory failure with hypoxia secondary to COPD exacerbation Respiratory pathogen panel is negative as is COVID-19 swab Suspect exacerbation secondary to ongoing continual tobacco use Continue IV steroids and scheduled updraft treatments along with p.r.n. updrafts Will treat 2 with oral doxycycline; despite chest x-ray suggesting pneumonia, clinically does not appear to be so. Will repeat chest x-ray if condition worsens. 2. Tobacco use disorder Nicotine replacement with patch if the patient request Cessation has been strongly encouraged 3. Bipolar disorder Continue her baseline meds 4. Morbid obesity, BMI 35.5 Weight loss has been encouraged Full Code Lovenox for dvt pptx
[2020-11-27] MEDS: Enoxaparin Sodium 40 MG/0.4 ML SYRINGE SUBCUT (16:47)
[2020-11-27] MEDS: Albuterol/Iprat 2.5/0.5MG 3 ML AMPUL.NEB INHALE (18:59)
[2020-11-27] MEDS: QUEtiapine Fumarate 50 MG TABLET PO (21:07)
[2020-11-27] MEDS: Lithium Carbonate ER 300 MG TABLET.ER PO (21:08)
[2020-11-27] MEDS: 0.9 % Sodium Chloride Flush 3 ML SYRINGE IVFLUSH (21:08)
[2020-11-27] MEDS: oxyCODONE HCl Immed Release 5 MG TABLET PO (21:11)
[2020-11-27] MEDS: Flu Vacc QS2020-21(6mos up)/PF 0.5 ML SYRINGE IM (22:16)
[2020-11-28] VITALS (7 sets, daily range): BP systolic 114–139; BP diastolic 60–72; PULSE 78–90; RESP 15–20; TEMP 36.4–36.9; O2SAT 94–96
[2020-11-28] MEDS: oxyCODONE HCl Immed Release 5 MG TABLET PO ×2 (06:41→17:30)
[2020-11-28] MEDS: Albuterol/Iprat 2.5/0.5MG 3 ML AMPUL.NEB INHALE ×4 (08:02→20:31)
[2020-11-28] MEDS: Omeprazole 20 MG CAPSULE.DR PO (08:47)
[2020-11-28] MEDS: Lithium Carbonate ER 300 MG TABLET.ER PO ×2 (08:48→20:58)
[2020-11-28] MEDS: 0.9 % Sodium Chloride Flush 3 ML SYRINGE IVFLUSH ×2 (08:48→17:33)
--- NOTE | 2020-11-28 09:33 | P.PNIM_ITS ---
Subjective Subjective Date of Service: 11/28/20 Interval History: seen and examined slightly improved, but still caballero ROS General - no fevers or chills Cardiovascular - no chest pain Respiratory - +SOB / +cough Abdominal- no abdominal pain, nausea, vomiting, diarrhea Physical Exam Vital Signs: Vital Signs: Last Vital Signs Temp 98.0 F 11/28/20 08:00 Pulse 90 11/28/20 08:00 Resp 20 11/28/20 08:00 BP 129/72 11/28/20 08:00 Pulse Ox 96 11/28/20 08:00 Body Mass Index 35.5 Const: Other: General - no acute distress, appears comfortable Cardiovascular - regular rate and rhythm, S1-S2 Lungs - normal respiratory effort, clear to auscultation bilaterally, no whee zing Abdomen - soft, nontender, no rebound or guarding Extremities - no edema bilaterally Neuro - awake and alert, no focal deficits Objective Data Current Medications Generic Name Dose Route Start Last Admin Trade Name Freq PRN Reason Stop Dose Admin Acetaminophen 650 mg 11/27/20 16:09 Acetaminophen 325 Mg Tablet PO Q6H PRN Pain, Mild (Pain Scale 1-3) Albuterol Sulfate 1.25 mg 11/27/20 16:10 Albuterol Sulfate (0.042%) 1.25 Mg/3 Ml Vial.Neb INHALE RQ6H PRN Shortness of Breath Albuterol/Ipratropium 3 ml 11/27/20 20:00 11/28/20 08:02 Albuterol/Iprat 2.5/0.5mg 3 Ml Ampul.Neb INHALE 3 ml RQ4H WHILE AWAKE TEJA Administration Doxycycline Hyclate 100 mg 11/27/20 21:00 11/28/20 08:47 Doxycycline Hyclate 100 Mg Tablet PO 100 mg BID TEJA Administration Enoxaparin Sodium 40 mg 11/27/20 16:15 11/27/20 16:47 Enoxaparin Sodium 40 Mg/0.4 Ml Syringe SUBCUT 40 mg Q24H TEJA Administration [place] Carbonate 300 mg 11/27/20 21:00 11/28/20 08:48 [place] Carbonate Er 300 Mg Tablet.Er PO 300 mg BID TEJA Administration Methylprednisolone Sodium Succinate 40 mg 11/27/20 21:00 11/28/20 08:47 Methylprednisolone Sod Succ/Pf 40 Mg/Ml Vial IVPUSH 40 mg TID TEJA Administration Omeprazole 20 mg 11/28/20 09:00 11/28/20 08:47 Omeprazole 20 Mg Capsule.Dr PO 20 mg DAILY TEJA Administration Oxycodone HCl 5 mg 11/27/20 18:14 11/28/20 06:41 Oxycodone Hcl Immed Release 5 Mg Tablet PO 5 mg Q6H PRN Administration Pain, Severe (Pain Scale 7-10) Pharmacy Consult 1 each 11/27/20 14:18 Consult Rx Perform Med Rec MISCELLANE ONCE PRN Consult order Quetiapine Fumarate 50 mg 11/27/20 21:00 11/27/20 21:07 Quetiapine Fumarate 50 Mg Tablet PO 50 mg BEDTIME TEAJ Administration Sodium Chloride 3 ml 11/28/20 00:00 11/28/20 08:48 0.9 % Sodium Chloride Flush 3 Ml Syringe IVFLUSH 3 ml QSHIFT TEJA Administration Trazodone HCl 50 mg 11/27/20 16:09 Trazodone Hcl 50 Mg Tablet PO BEDTIME PRN Insomnia Labs CBC & Chem 7: 11/27/20 09:42 11/27/20 09:42 Assessment and Plan (1) Acute respiratory failure with hypoxia: Status: Acute Assessment and Plan: This is a 50-year-old female who is active smoker and has a history of COPD/asthma and is presenting to the hospital complaints of progressive shortne ss of breath for several days prior to arrival. Her workup is consistent with acute respiratory failure with hypoxia secondary to COPD exacerbation 1. Acute respiratory failure with hypoxia secondary to COPD exacerbation improving slowly continue iv steriods and scheduled updrafts for an additional 24 hours and reassess continue o2, wean as tolerated 2. Tobacco use disorder Nicotine replacement with patch if the patient request Cessation has been strongly encouraged 3. Bipolar disorder Continue her baseline meds 4. Morbid obesity, BMI 35.5 Weight loss has been encouraged Full Code Lovenox for dvt pptx
--- NOTE | 2020-11-28 12:25 | MHC.CM.PN ---
PATIENT IS INDEPENDENT WITH HER ADLS. SHE DOES HAVE A WALKER, INHALERS, AND NEBULIZER IN THE HOME. SHE VERIFIES ADDRESS ON FILE HER RESIDENCE PATIENT REPORTS THAT SHE IS UNSURE OF WHO HER PCP WILL BE AT [facility], BUT THIS IS THE MEDICAL FACILITY THAT SHE USES FOR PRIMARY CARE NEEDS. CURRENTLY PATIENT IS ON 2 LITRES O2 VIA CANNULA
--- NOTE | 2020-11-28 12:31 | MHC.CM.PN ---
HCP ON FILE AND VERIFIED
[2020-11-28] MEDS: Enoxaparin Sodium 40 MG/0.4 ML SYRINGE SUBCUT (17:32)
[2020-11-28] MEDS: QUEtiapine Fumarate 50 MG TABLET PO (20:58)
[2020-11-28] MEDS: guaiFENesin DM 200/20/10 ML 10 ML SYRUP PO (20:58)
[2020-11-29] VITALS: BP 106/65; PULSE 74; RESP 18; TEMP 36.3; O2SAT 95
[2020-11-29] MEDS: 0.9 % Sodium Chloride Flush 3 ML SYRINGE IVFLUSH ×2 (00:38→10:29)
[2020-11-29 04:00] VITALS: BP 118/69; PULSE 63; RESP 18; TEMP 36.4; O2SAT 98
[2020-11-29 07:31] VITALS: BP 119/64; PULSE 82; RESP 19; TEMP 36.1; O2SAT 97
[2020-11-29] MEDS: Albuterol/Iprat 2.5/0.5MG 3 ML AMPUL.NEB INHALE (07:52)
[2020-11-29 07:54] VITALS: PULSE 90; O2SAT 96
--- NOTE | 2020-11-29 10:15 | MHC.CM.PN ---
PATIENT IS DISCHARGED HOME. SHE WILL NEED TRANSPORTATION HOME, AND A CAB VOUCHER TO BE GIVEN. RN AWARE OF DISCHARGE.
[2020-11-29] MEDS: Lithium Carbonate ER 300 MG TABLET.ER PO (10:28)
[2020-11-29] MEDS: Omeprazole 20 MG CAPSULE.DR PO (10:28)
--- NOTE | 2020-11-29 12:03 | P.DS_ITS ---
DS: Providers Provider Date of Service: 11/29/20 Date of admission: 11/27/20 16:09 Primary care physician: [facility] DS: Diagnosis Discharge Diagnosis (1) Acute respiratory failure with hypoxia: Status: Acute (2) COPD exacerbation: Status: Acute (3) Tobacco use: Status: Acute DS: Medications Discharge Medications Home Medications: Home Medications Medication Instructions Recorded Confirmed acetaminophen 500 mg PO TID PRN 10/08/20 11/27/20 fluticasone propion-salmeterol 1 inh INHALATION BID 10/08/20 11/27/20 [AirDuo RespiClick] omeprazole 20 mg PO DAILY 10/08/20 11/27/20 lithium carbonate 300 mg PO BID 11/27/20 11/27/20 Previous Rx's Medication Instructions Recorded quetiapine [Seroquel] 50 mg PO BEDTIME #45 tab 10/15/20 trazodone 50 mg PO BEDTIME PRN #15 tab 10/15/20 albuterol sulfate 2 puff INHALATION QID PRN #1 g 11/29/20 nicotine [Nicoderm CQ] 1 patch TRANSDERMAL Q24H #14 ea 11/29/20 prednisone 50 mg PO DAILY #5 tab 11/29/20 DS: Summary Hospital Course Hospital Course: Patient was admitted for respiratory failure with hypoxia secondary to COPD exacerbation. She was started on IV steroids, doxycycline and scheduled bronchodilators. COVID was negative. Over the course of 48 hours, her hypoxia resolved and she was tolerating room air. She was transition from IV to oral prednisone and will be discharged home with 5 more days of prednisone + doxy. She will be prescribed NRT with nicotine patch. She has been strongly encouraged to stop tobacco use. Time Spent with Patient Time attestation: Total time spent providing and/or coordinating discharge services: Discharge coordination time: Greater than 30 minutes Physical Exam Vital Signs: Vital Signs: Last Vital Signs Temp 97.0 F 11/29/20 07:31 Pulse 90 11/29/20 07:54 Resp 19 11/29/20 07:31 BP 119/64 11/29/20 07:31 Pulse Ox 97 11/29/20 07:31 Body Mass Index 35.5 Const: Other: General - no acute distress, appears comfortable Cardiovascular - regular rate and rhythm, S1-S2 Lungs - normal respiratory effort, clear to auscultation bilaterally, no wheezing Abdomen - soft, nontender, no rebound or guarding Extremities - no edema bilaterally Neuro - awake and alert, no focal deficits DS: Data Data Completed and Pending Labs on day of discharge: Laboratory Tests 11/27/20 11/27/20 11/27/20 09:42 09:42 09:42 WBC 5.4 RBC 4.64 Hgb 13.9 Hct 43.4 MCV 93.5 MCH 30.0 MCHC 32.0 RDW 13.1 Plt Count 342 MPV 10.1 Immature Gran % (Auto) 0.4 Neut % (Auto) 55.6 Lymph % (Auto) 34.5 [place] % (Auto) 6.9 Eos % (Auto) 1.1 Baso % (Auto) 1.5 Lymph # (Auto) 1.9 [place] # (Auto) 0.4 Eos # (Auto) 0.1 Baso # (Auto) 0.1 Abs Immat Gran (auto) 0.02 Absolute Neuts (auto) 3.0 Absolute Nucleated RBC 0.000 Nucleated RBC % (auto) 0.0 Hold Blue Top SEE NOTE Sodium 143 Potassium 4.8 Chloride 105 Carbon Dioxide 26 Anion Gap 17 BUN 13 D Creatinine 0.69 Estim Creat Clear Calc 117.5 Estimated GFR > 60 Random Glucose 92 Lactic Acid Calcium 9.6 D Magnesium 1.8 Total Bilirubin 0.5 Direct Bilirubin < 0.2 AST 16 ALT 20 Alkaline Phosphatase 87 Troponin I High Sens B-Natriuretic Peptide Total Protein 6.9 Albumin 4.4 Procalcitonin Urine Color Urine Appearance Urine pH Ur Specific [place] Urine Protein Urine Glucose (UA) Urine Ketones Urine Blood Urine Nitrite Ur Leukocyte Esterase Respiratory Panel [place] Adenovirus (Rapid PCR) B.pert (TEM-PCR) B.parapertussis DNA PCR C. pneumoniae DNA (PCR) Coronavirus (PCR) Coronavirus OC43 (PCR) Coronavirus HKU1 (PCR) Coronavirus 229E (PCR) Coronavirus NL63 (PCR) Human Metapneumovir PCR Influenza A (RT-PCR) Influenza Type A (PCR) Influenza B (RT-PCR) Influenza Type B (PCR) M. pneumoniae (PCR) Parainfluenza 1 (PCR) Parainfluenza 2 (PCR) Parainfluenza 3 (PCR) Parainfluenza 4 (PCR) RSV (PCR) RSV RNA Qual (PCR) Entero/Rhino (PCR) SARS-CoV-2 RNA (RT-PCR) 11/27/20 11/27/20 11/27/20 09:42 09:42 09:42 WBC RBC Hgb Hct MCV MCH MCHC RDW Plt Count MPV Immature Gran % (Auto) Neut % (Auto) Lymph % (Auto) [place] % (Auto) Eos % (Auto) Baso % (Auto) Lymph # (Auto) [place] # (Auto) Eos # (Auto) Baso # (Auto) Abs Immat Gran (auto) Absolute Neuts (auto) Absolute Nucleated RBC Nucleated RBC % (auto) Hold Blue Top Sodium Potassium Chloride Carbon Dioxide Anion Gap BUN Creatinine Estim Creat Clear Calc Estimated GFR Random Glucose Lactic Acid 1.1 Calcium Magnesium Total Bilirubin Direct Bilirubin AST ALT Alkaline Phosphatase Troponin I High Sens < 3.5 B-Natriuretic Peptide 62 Total Protein Albumin Procalcitonin Urine Color Urine Appearance Urine pH Ur Specific [place] Urine Protein Urine Glucose (UA) Urine Ketones Urine Blood Urine Nitrite Ur Leukocyte Esterase Respiratory Panel [place] Adenovirus (Rapid PCR) B.pert (TEM-PCR) B.parapertussis DNA PCR C. pneumoniae DNA (PCR) Coronavirus (PCR) NEGATIVE Coronavirus OC43 (PCR) Coronavirus HKU1 (PCR) Coronavirus 229E (PCR) Coronavirus NL63 (PCR) Human Metapneumovir PCR Influenza A (RT-PCR) Influenza Type A (PCR) NEGATIVE Influenza B (RT-PCR) Influenza Type B (PCR) NEGATIVE M. pneumoniae (PCR) Parainfluenza 1 (PCR) Parainfluenza 2 (PCR) Parainfluenza 3 (PCR) Parainfluenza 4 (PCR) RSV (PCR) RSV RNA Qual (PCR) NEGATIVE Entero/Rhino (PCR) SARS-CoV-2 RNA (RT-PCR) 11/27/20 11/27/20 11/27/20 09:42 09:42 09:42 WBC RBC Hgb Hct MCV MCH MCHC RDW Plt Count MPV Immature Gran % (Auto) Neut % (Auto) Lymph % (Auto) [place] % (Auto) Eos % (Auto) Baso % (Auto) Lymph # (Auto) [place] # (Auto) Eos # (Auto) Baso # (Auto) Abs Immat Gran (auto) Absolute Neuts (auto) Absolute Nucleated RBC Nucleated RBC % (auto) Hold Blue Top Sodium Potassium Chloride Carbon Dioxide Anion Gap BUN Creatinine Estim Creat Clear Calc Estimated GFR Random Glucose Lactic Acid Calcium Magnesium Total Bilirubin Direct Bilirubin AST ALT Alkaline Phosphatase Troponin I High Sens B-Natriuretic Peptide Total Protein Albumin Procalcitonin < 0.02 Urine Color YELLOW Urine Appearance HAZY Urine pH 5.5 Ur Specific [place] >= 1.030 H Urine Protein NEG Urine Glucose (UA) NEG Urine Ketones NEG Urine Blood NEG Urine Nitrite NEG Ur Leukocyte Esterase NEG Respiratory Panel [place] See Note Adenovirus (Rapid PCR) Not Detected B.pert (TEM-PCR) Not Detected B.parapertussis DNA PCR Not Detected C. pneumoniae DNA (PCR) Not Detected Coronavirus (PCR) Coronavirus OC43 (PCR) Not Detected Coronavirus HKU1 (PCR) Not Detected Coronavirus 229E (PCR) Not Detected Coronavirus NL63 (PCR) Not Detected Human Metapneumovir PCR Not Detected Influenza A (RT-PCR) Not Detected Influenza Type A (PCR) Influenza B (RT-PCR) Not Detected Influenza Type B (PCR) M. pneumoniae (PCR) Not Detected Parainfluenza 1 (PCR) Not Detected Parainfluenza 2 (PCR) Not Detected Parainfluenza 3 (PCR) Not Detected Parainfluenza 4 (PCR) Not Detected RSV (PCR) Not Detected RSV RNA Qual (PCR) Entero/Rhino (PCR) Not Detected SARS-CoV-2 RNA (RT-PCR) Not Detected Preliminary micro results at discharge 11/27/20 09:49 Blood Culture - Preliminary Blood - Venous No growth after 48 hours. 11/27/20 09:42 Blood Culture - Preliminary Blood - Venous No growth after 48 hours. Discharge Plan Discharge Patient Disposition: Home, Self-Care Referrals: [facility] [Primary Care Provider] - Discharge Medications: New prednisone 50 mg tablet 50 mg PO DAILY Qty: 5 RF: 0 nicotine [Nicoderm CQ] 7 mg/24 hr patch 24 hour 1 patch transdermal Q24H Qty: 14 RF: 0 doxycycline hyclate 100 mg Tablet 100 mg PO BID Qty: 10 RF: 0 Continued acetaminophen 500 mg Tablet 500 mg PO TID PRN (Reason: Pain) RF: 0 omeprazole 20 mg Capsule,Delayed Release(Dr/Ec) 20 mg PO DAILY RF: 0 fluticasone propion-salmeterol [AirDuo RespiClick] 232-14 mcg/actuation Aerosol Powdr Breath Activated 1 inh INHALATION BID RF: 0 trazodone 50 mg Tablet 50 mg PO BEDTIME PRN (Reason: Insomnia) Qty: 15 RF: 1 quetiapine [Seroquel] 50 mg tablet 50 mg PO BEDTIME Qty: 45 RF: 0 lithium carbonate 300 mg Tablet Extended Release 300 mg PO BID RF: 0 albuterol sulfate 90 mcg/actuation Hfa Aerosol Inhaler 2 puff INHALATION QID PRN (Reason: Shortness Of Breath Or Wheezing) Qty: 1 RF: 0 Discharge Orders: Discharge Order (Routine); Ordered 11/29/20 Ordered By: Kevin Knight Diet: advance to usual diet Activity on Discharge: As tolerated Stand Alone Forms: Patient Portal Discharge page Visit Report Forms: Patient Portal Discharge page Care Plan Goals: To stay healthy and out of the hospital. Health Concerns: COPD / Smoking Plan of Treatment: COPD - take inhalers and finish 5 more days prednisone Smoking - use patch to help with smoking cessation
== END 2020-11-29 12:57 | disposition home or self-care (01) | DRG 140 ==
LOC: HO.ED 14:05 → HO.EDOVER 16:49 → HO.S3 18:50
PROVIDERS: Physician Assistant; Admitting Provider Family Medicine; Emergency Provider Emergency Medicine; Visit Provider Family Medicine
DX: J44.1 Chronic obstructive pulmonary disease with (acute) exacerbation (principal); J96.01 Acute respiratory failure with hypoxia; E66.01 Morbid (severe) obesity due to excess calories; F17.210 Nicotine dependence, cigarettes, uncomplicated; F31.9 Bipolar disorder, unspecified; Z71.6 Tobacco abuse counseling; Z68.35 Body mass index [BMI] 35.0-35.9, adult; Z23 Encounter for immunization; Z20.822 Contact with and (suspected) exposure to COVID-19; Z59.0 Homelessness; Z88.0 Allergy status to penicillin; Z88.2 Allergy status to sulfonamides; Z88.6 Allergy status to analgesic agent; Z79.51 Long term (current) use of inhaled steroids; Z79.52 Long term (current) use of systemic steroids; Z79.899 Other long term (current) drug therapy
CPT/HCPCS: 0241U; 36415; 71045; 80048; 80076; 81003; 83605; 83735; 83880; 84145; 84484; 85025; 87040; 87633; 90686; 93005; 94640; 94644; 96361; 96365; 96366; 96375; 99284; 99291; J1650; J2920; J2930

== ENCOUNTER 2020-12-10 14:03 | Emergency (ER) | payer MEDICAID, SELFPAY ==
--- NOTE | ~2020-12-10 | XR_ITS ---
EXAMINATION: XR CHEST CLINICAL INFORMATION: Cough. COMPARISON: Chest 11/27/2020 TECHNIQUE: Frontal view of the chest was obtained. FINDINGS: The lungs are well-expanded and clear. The heart size and pulmonary vascularity is normal. No gross bony abnormality seen. XR/XR chest 1V IMPRESSION: Unremarkable chest exam.
[2020-12-10 14:28] VITALS: BP 135/79; PULSE 98; RESP 16; TEMP 35.7; O2SAT 95; BMI 16.1
--- NOTE | 2020-12-10 16:35 | ED_ITS ---
HPI - Psych General Chief Complaint: Psychiatric Symptoms Stated Complaint: SI/HI WITH A PLAN, CALM+COOPERATIVE Time Seen by Provider: 12/10/20 16:28 Source: patient Mode of arrival: EMS Limitations: no limitations History of Present Illness HPI Narrative: Patient comes emergency room complaining of suicidal ideation. Patient states she has been feeling more depressed than usual for about 1 week. Patient denies suicidal ideation. Patient states that her best friend recently , worsening her baseline depression, patient states that she has not been taking her medication for the last week for depression. Patient has no specific plan, no homicidal ideation. Patient complaining of anxiety. Patient denies using drugs or alcohol, or trying to overdose with any medication MD complaint: suicidal ideation Related Data Home Medications Medication Instructions Recorded Confirmed acetaminophen 500 mg PO TID PRN 10/08/20 11/27/20 fluticasone propion-salmeterol 1 inh INHALATION BID 10/08/20 11/27/20 [AirDuo RespiClick] omeprazole 20 mg PO DAILY 10/08/20 11/27/20 lithium carbonate 300 mg PO BID 11/27/20 11/27/20 Previous Rx's Medication Instructions Recorded quetiapine [Seroquel] 50 mg PO BEDTIME #45 tab 10/15/20 trazodone 50 mg PO BEDTIME PRN #15 tab 10/15/20 albuterol sulfate 2 puff INHALATION QID PRN #1 g 11/29/20 doxycycline hyclate 100 mg PO BID #10 tab 11/29/20 nicotine [Nicoderm CQ] 1 patch TRANSDERMAL Q24H #14 ea 11/29/20 prednisone 50 mg PO DAILY #5 tab 11/29/20 Allergies Allergy/AdvReac Type Severity Reaction Status Date / Time aspirin [Aspirin] Allergy Severe HIVES,THROAT Unverified 07/17/20 17:00 SWELLS bee pollen [BEE STINGS] Allergy Severe ANAPHYLAXIS Unverified 07/17/20 17:00 diphenhydramine Allergy Severe hives, Unverified 07/17/20 17:00 [From BENADRYL ALLERGY] throat swells Penicillins [PCN] Allergy Severe HIVES Unverified 07/17/20 17:00 THROAT SWELLS Sulfa (Sulfonamide Allergy Intermediate HIVES Unverified 07/17/20 17:00 Antibiotics) [SULFA (SULFONAMIDE ANTIBIOTICS)] tramadol [TRAMADOL] Allergy Intermediate ITCHING Unverified 07/17/20 17:00 latex [LATEX] Allergy Unknown UNKNOWN Unverified 07/17/20 17:00 penicillin G Allergy Unknown Unknown Verified 10/09/20 11:01 bee stings Allergy Unknown Unknown Uncoded 10/09/20 11:01 DairyCare Allergy Unknown Unknown Uncoded 10/09/20 11:01 sulfa drugs Allergy Unknown Unknown Uncoded 10/09/20 11:01 Review of Systems Review of Systems: Constitutional : No Weight loss, No Fever, No Chills, No Night Sweats, No Fatigue, No Malaise ENT/Mouth : No Hearing loss, No Ear Pain, No Nasal Congestion, No Sinus Pain, No Hoarseness, No sore throat, No Rhinorrhea, No Swallowing Difficulty Eyes: No Eye Pain, No Swelling, No Redness, No Foreign Body, No Discharge, No Vision Changes Cardiovascular : No Chest Pain, No SOB, No Dyspnea on Exertion, No Orthopnea, No Edema, No Palpitations Respiratory : No Cough, No Sputum, No Wheezing, No Smoke Exposure, No Dyspnea Gastrointestinal : No Nausea, No Vomiting, No Diarrhea, No Constipation, No abdominal Pain, No Hematochezia, No Melena Genitourinary : no irregular bleeding, No Dysuria, No Urinary Frequency, No Hematuria, No Urinary Incontinence, No Urgency, No Flank Pain, No Urinary Flow Changes, No Hesitancy Musculoskeletal : No joint pain, No Myalgias, No Joint Swelling Skin : No Skin Lesions, No rash Neuro : No Weakness, No Numbness, No Paresthesias, No Loss of Consciousness, No Dizziness, No Headache Psych : Complaining of anxiety, depression, suicidal ideation, no homicidal ideation Heme/Lymph: No Bruising, No Bleeding,No Lymphadenopathy Endocrine : No Polyuria, No Polydipsia, No Temperature Intolerance [facility] Past Medical History Medical History Bipolar disorder Borderline personality disorder COPD (chronic obstructive pulmonary disease) Depression Surgical History History of ankle surgery History of appendectomy History of back surgery Hx of cholecystectomy Family History Family History (Updated 11/27/20 @ 16:21 by Kevin Knight MD) Mother COPD (chronic obstructive pulmonary disease) Social History Social History (Updated 11/27/20 @ 16:22 by Kevin Knight MD) Household Members: None Housing: Apartment Alcohol intake: never Smoking Status: Current every day smoker Tobacco Type: Cigarette Cigarettes Per Day: 5 Years Smoked: >20 Second Hand Smoke Exposure: No Use of substances other than those prescribed or required for medical reasons: Yes Advance Directives: Yes Advance Directives Information Provided: Yes Advance Directives on File: No service: No Current occupational status: unemployed Physical Exam Vital Signs: Vital Signs: Last Vital Signs Temp 98.5 F 12/10/20 16:36 Pulse 99 12/10/20 16:36 Resp 16 12/10/20 16:36 BP 140/83 H 12/10/20 16:36 Pulse Ox 95 12/10/20 16:36 Body Mass Index 16.1 Appearance: Alert. Oriented X3. No acute distress. Eyes: Pupils equal, round and reactive to light. ENT: Pharynx normal. Neck: Normal inspection. Neck supple. No lymph nodes noted. No crepitus CVS: Normal heart rate and rhythm. Pulses normal. Normal S1 and S2 Respiratory: No respiratory distress. Breath sounds normal. No Wheezing. No rales Abdomen: Soft and nontender. No rigidity. No distention. good BS x4 Skin: Skin warm and dry. Normal skin color. Normal skin turgor. Extremities: No lower extremity edema. No lower extremity edema. No Lacerations. No Rash Neuro: Oriented X 3. No motor deficit. No sensory deficit. Moving all extermities. No slurred speech. Psych: Normal speech, good eye contact, calm and cooperative, does not seem anxious Course Course Course Narrative: [facility] consult pending Discharge Plan Discharge Prescriptions: No Action acetaminophen 500 mg Tablet 500 mg PO TID PRN (Reason: Pain) RF: 0 omeprazole 20 mg Capsule,Delayed Release(Dr/Ec) 20 mg PO DAILY RF: 0 fluticasone propion-salmeterol [AirDuo RespiClick] 232-14 mcg/actuation Aerosol Powdr Breath Activated 1 inh INHALATION BID RF: 0 trazodone 50 mg Tablet 50 mg PO BEDTIME PRN (Reason: Insomnia) Qty: 15 RF: 1 quetiapine [Seroquel] 50 mg tablet 50 mg PO BEDTIME Qty: 45 RF: 0 lithium carbonate 300 mg Tablet Extended Release 300 mg PO BID RF: 0 prednisone 50 mg tablet 50 mg PO DAILY Qty: 5 RF: 0 albuterol sulfate 90 mcg/actuation Hfa Aerosol Inhaler 2 puff INHALATION QID PRN (Reason: Shortness Of Breath Or Wheezing) Qty: 1 RF: 0 nicotine [Nicoderm CQ] 7 mg/24 hr patch 24 hour 1 patch transdermal Q24H Qty: 14 RF: 0 doxycycline hyclate 100 mg Tablet 100 mg PO BID Qty: 10 RF: 0
[2020-12-10 16:36] VITALS: BP 140/83; PULSE 99; RESP 16; TEMP 36.9; O2SAT 95
[2020-12-10] MEDS: LORazepam 1 MG TABLET PO (16:56)
--- NOTE | 2020-12-10 17:07 | PC.NURSE ---
PT SEEN BY PROVIDER, MEDICATED PER EMAR, TOLERATING PO W/O ISSUE.
[2020-12-10 17:34] LABS: Glucose Urine UA NEG (NEG); Leukocyte Esterase Urine NEG (NEG); Nitrite Urine NEG (NEG); Specific Gravity - Urine 1.015 (1.005-1.025); Urine Blood NEG (NEG); Urine Ketones NEG (NEG); Urine Protein NEG (NEG-TRACE)
[2020-12-10 17:35] LABS: Appearance Urine CLEAR; Color Urine YELLOW
[2020-12-10 17:37] LABS: UPreg QC Valid YES; Urine Pregnancy NEGATIVE (NEGATIVE)
[2020-12-10 17:54] VITALS: BP 123/74; PULSE 94; RESP 16; TEMP 36.4; O2SAT 99
[2020-12-10 18:06] LABS: Amphetamine Screen Urine Not Detected (Not Detect); Barbiturates, Urine Not Detected (Not Detect); Benzodiazepines Screen Urine Not Detected (Not Detect); Cannabinoid Screen Urine Not Detected (Not Detect); Cocaine Screen Urine Not Detected (Not Detect); Opiate Screen Urine Not Detected (Not Detect); Phencyclidine Screen Urine Not Detected (Not Detect)
--- NOTE | 2020-12-10 18:30 | PC.NURSE ---
per elisabeth rn, n faxed and called at [phone]
[2020-12-10 20:00] VITALS: BP 105/50; PULSE 72; RESP 16; TEMP 36.9; O2SAT 99
[2020-12-10 22:00] VITALS: BP 124/85; PULSE 92; RESP 16; TEMP 36.4; O2SAT 99
[2020-12-10 23:48] VITALS: BP 116/78; PULSE 76; RESP 16; TEMP 37.1; O2SAT 99
[2020-12-11 06:00] VITALS: BP 110/66; PULSE 73; RESP 18; TEMP 36.5; O2SAT 94
[2020-12-11 06:53] LABS: COVID-19 Test Negative (Negative)
--- NOTE | 2020-12-11 06:57 | PC.NURSE ---
Report received. Pt currently resting, calm and cooperative, denies complaints. Pt waiting to be seen by N.
[2020-12-11 09:05] VITALS: BP 117/69; PULSE 88; RESP 18; O2SAT 96
[2020-12-11] MEDS: Albuterol Sulfate 90 MCG 8 GM INHALER 4 PUFF INHALE (10:04)
--- NOTE | 2020-12-11 10:22 | PC.NURSE ---
PT coughing, difficulty catching her breathe, provider aware, pt medicated per EMAR with no effect. Provider notified. Pt moved to main ED, report given to Rodolfo TY
[2020-12-11 11:21] LABS: MANUAL DIFF FLAG NO
[2020-12-11] MEDS: 0.9 % Sodium Chloride 500 ML IV (11:21)
[2020-12-11 11:24] LABS: Basophils Absolute Auto 0.1 X10*3/uL (0.0-0.2); Basophils Percent Auto 0.6 % (0-2); Eosinophils Absolute Auto 0.1 X10*3/uL (0.0-0.4); Hematocrit 41.4 % (37-47); Hemoglobin 13.2 g/dl (12.0-16.0); Imm Gran Abs Auto 0.04 X10*3/uL (0.00-0.03); Imm Gran Pct Auto 0.4 % (0.0-0.4); Lymphocytes Absolute Auto 2.3 X10*3/uL (1.2-4.9); Lymphocytes Percent Auto 22.1 % (20-40); Mean Corpuscular HGB Conc 31.9 g/dl (31.0-35.0); Mean Corpuscular Hemoglobin 30.2 pg (27.0-33.0); Mean Corpuscular Volume 94.7 fL (80-98); Mean Platelet Volume 10.1 fL (9.4-12.3); Monocytes Absolute Auto 0.5 X10*3/uL (0.1-1.2); Monocytes Percent Auto 4.7 % (2-11); Neutrophils Absolute Auto 7.4 X10*3/uL (2.0-8.3); Neutrophils Percent Auto 71.2 % (45-73); Platelet Count 267 X10*3/uL (160-400); Red Blood Count 4.37 X10*6/uL (4.20-5.50); Red Cell Distribution Width 12.6 % (11.0-16.0); White Blood Count 10.4 X10*3/uL (4.8-10.8)
[2020-12-11 11:39] LABS: Glucose Urine UA NEG (NEG); Leukocyte Esterase Urine NEG (NEG); Nitrite Urine NEG (NEG); Urine Blood NEG (NEG); Urine Ketones NEG (NEG); Urine Protein NEG (NEG-TRACE)
[2020-12-11 11:45] LABS: Alanine Aminotransferase 17 U/L (0-31); Albumin Level 4.1 g/dL (3.5-5.0); Alkaline Phosphatase 81 U/L (39-117); Anion Gap 11 (12-20); Aspartate Amino Transferase 10 U/L (5-31); Bilirubin Total 0.3 mg/dL (0.0-1.0); Blood Urea Nitrogen 17 mg/dL (9-16); Calcium 8.8 mg/dL (8.4-10.2); Carbon Dioxide 29 mmol/L (22-29); Chloride 105 mmol/L (96-108); Creatinine Clr Calc Pharmacy 72.7; Estimated Glomerular Filt Rate > 60; Glucose Random 99 mg/dL (60-115); Potassium 4.6 mmol/L (3.3-5.1); Sodium 140 mmol/L (135-145); Total Protein 6.3 g/dL (6.5-8.0)
[2020-12-11 11:48] LABS: Appearance Urine CLEAR; Color Urine YELLOW
[2020-12-11 12:00] VITALS: BP 122/69; PULSE 82; RESP 16; TEMP 36.5; O2SAT 98
[2020-12-11] MEDS: Acetaminophen 325 MG TABLET 650 MG PO ×2 (12:35→21:06)
[2020-12-11 13:00] LABS: RBC Urine 0 /HPF (0); WBC Urine 0 /HPF (0-4)
[2020-12-11 13:01] LABS: Squamous Epithelial Cell Urine 3+ /LPF
--- NOTE | 2020-12-11 13:53 | MHC.CARE ---
CARE attempted to see pt twice for assessment was not able to conduct due to pts resp issues requiring her to be moved main ED. Pt began coughing and gasping when attempting to answer yes/no questions.
[2020-12-11] MEDS: Albuterol Sulfate (0.083%) 2.5 MG/3 ML VIAL.NEB 7.5 MG INHALE (15:26)
[2020-12-11 15:28] VITALS: PULSE 78; O2SAT 92
--- NOTE | 2020-12-11 16:27 | PC.NURSE ---
PT ambulated back to pod with steady gait, reports some headache, denies other complaints. Pt waiting to be seen by N.
--- NOTE | 2020-12-11 18:56 | PC.NURSE ---
Report received. PT is resting quietly in bed. [facility] at bed side.
[2020-12-11 20:38] VITALS: BP 147/80; PULSE 90
[2020-12-11] MEDS: Prazosin HCL 1 MG CAPSULE PO (20:38)
[2020-12-11] MEDS: Lithium Carbonate ER 300 MG TABLET.ER PO (20:38)
[2020-12-11 21:00] VITALS: BP 147/80; PULSE 90; RESP 20; TEMP 36.5; O2SAT 93
--- NOTE | 2020-12-12 06:58 | PC.NURSE ---
Report received. Pt currently sleeping, respirations even and unlabored, in no apparent distress, pt to be discharged to the living room.
[2020-12-12 07:00] VITALS: BP 128/69; PULSE 104; RESP 18; TEMP 37.1; O2SAT 93
--- NOTE | 2020-12-12 07:52 | PC.NURSE ---
Report given to Joan TY, pt moved to main ED. [facility] contacted, stated they are working on getting her to the living room but did not give time frame at this time.
--- NOTE | 2020-12-12 07:53 | PC.NURSE ---
report taken from lucy, plan for pt to go to living room awaiting [facility]
[2020-12-12] MEDS: guaiFENesin DM 200/20/10 ML 10 ML SYRUP PO (08:20)
== END 2020-12-12 08:20 | disposition home or self-care (01) ==
PROVIDERS: Emergency Medicine; Nurse Practitioner Primary Care; Emergency Provider Emergency Medicine
DX: F32.9 Major depressive disorder, single episode, unspecified (principal); R45.851 Suicidal ideations; F41.9 Anxiety disorder, unspecified; B34.9 Viral infection, unspecified; R05 Cough; Z20.822 Contact with and (suspected) exposure to COVID-19; F60.3 Borderline personality disorder; F17.210 Nicotine dependence, cigarettes, uncomplicated; Z79.899 Other long term (current) drug therapy
CPT/HCPCS: 36415; 71045; 80053; 80307; 81001; 81003; 81025; 85025; 87635; 94640; 94644; 99285

== ENCOUNTER 2020-12-12 20:11 | Inpatient (IN) | payer MEDICAID, SELFPAY ==
--- NOTE | ~2020-12-12 | XR_ITS ---
EXAMINATION: XR CHEST CLINICAL INFORMATION: Chest wall pain COMPARISON: 12/11/2020 TECHNIQUE: Frontal view of the chest was obtained. FINDINGS: No significant abnormality is noted involving the heart, lungs, mediastinum, bony thorax or soft tissues. There has been no interval change since yesterday's exam. XR/XR chest 1V IMPRESSION: Unremarkable examination.
[2020-12-12 20:28] VITALS: BP 116/83; BP 120/80; PULSE 112; PULSE 113; RESP 25; TEMP 38.8; O2SAT 92; O2SAT 94; BMI 38.7
[2020-12-12 20:40] VITALS: BP 116/83; PULSE 114; RESP 24; TEMP 38.8; O2SAT 95
--- NOTE | 2020-12-12 20:44 | ECG_ITS ---
Test Reason : SOB Blood Pressure : / mmHG Vent. Rate : 102 BPM Atrial Rate : 102 BPM P-R Int : 132 ms QRS Dur : 078 ms QT Int : 320 ms P-R-T Axes : 028 051 042 degrees QTc Int : 417 ms Sinus tachycardia Otherwise normal ECG When compared with ECG of 27-NOV-2020 09:39, No significant change was found Referred By: Generic ED Physician Electronically Signed By:VAIBHAV KILLIAN MD
[2020-12-12 21:30] VITALS: PULSE 106; O2SAT 92
[2020-12-12] MEDS: Albuterol Sulfate (0.083%) 2.5 MG/3 ML VIAL.NEB 5 MG INHALE (21:30)
[2020-12-12] MEDS: Albuterol/Iprat 2.5/0.5MG 3 ML AMPUL.NEB INHALE (21:30)
[2020-12-12] MEDS: Acetaminophen 325 MG TABLET 650 MG PO (21:44)
[2020-12-12 21:54] LABS: Influenza A PCR NEGATIVE (Negative); Influenza B PCR NEGATIVE (Negative); Resp Syncy Virus RNA Qual PCR NEGATIVE (Negative); SARS COV2 PCR INHOUSE NEGATIVE (Negative)
[2020-12-12 22:07] LABS: MANUAL DIFF FLAG NO
[2020-12-12 22:10] LABS: Basophils Absolute Auto 0.1 X10*3/uL (0.0-0.2); Basophils Percent Auto 0.4 % (0-2); Eosinophils Percent Auto 0.1 % (0-4); Hematocrit 40.6 % (37-47); Hemoglobin 13.1 g/dl (12.0-16.0); Imm Gran Abs Auto 0.03 X10*3/uL (0.00-0.03); Imm Gran Pct Auto 0.2 % (0.0-0.4); Lymphocytes Absolute Auto 1.8 X10*3/uL (1.2-4.9); Lymphocytes Percent Auto 12.4 % (20-40); Mean Corpuscular HGB Conc 32.3 g/dl (31.0-35.0); Mean Corpuscular Hemoglobin 29.8 pg (27.0-33.0); Mean Corpuscular Volume 92.5 fL (80-98); Mean Platelet Volume 10.1 fL (9.4-12.3); Monocytes Absolute Auto 0.7 X10*3/uL (0.1-1.2); Neutrophils Percent Auto 81.9 % (45-73); Platelet Count 255 X10*3/uL (160-400); Red Blood Count 4.39 X10*6/uL (4.20-5.50); Red Cell Distribution Width 12.5 % (11.0-16.0); White Blood Count 14.6 X10*3/uL (4.8-10.8)
[2020-12-12 22:16] VITALS: BP 128/74; PULSE 105; RESP 20; O2SAT 95
[2020-12-12] MEDS: Magnesium Sulfate/H2O 2 GM/50 ML PIGGYBACK IV (22:23)
[2020-12-12] MEDS: methylPREDNISolone Sod Succ/PF 125 MG/2 ML VIAL IVPUSH (22:23)
[2020-12-12 22:38] LABS: Alanine Aminotransferase 16 U/L (0-31); Albumin Level 4.3 g/dL (3.5-5.0); Alkaline Phosphatase 88 U/L (39-117); Anion Gap 14 (12-20); Aspartate Amino Transferase 14 U/L (5-31); Bilirubin Direct 0.2 mg/dL (0.0-0.5); Bilirubin Total 0.4 mg/dL (0.0-1.0); Blood Urea Nitrogen 10 mg/dL (9-16); Calcium 9.1 mg/dL (8.4-10.2); Carbon Dioxide 26 mmol/L (22-29); Chloride 104 mmol/L (96-108); Creatinine Clr Calc Pharmacy 123.2; Estimated Glomerular Filt Rate > 60; Glucose Random 112 mg/dL (60-115); Lipase 24 U/L (8-78); Potassium 4.3 mmol/L (3.3-5.1); Sodium 140 mmol/L (135-145); Total Protein 6.8 g/dL (6.5-8.0)
[2020-12-12 22:44] LABS: B Type Natriuretic Peptide 37 pg/mL (<100); Troponin-I High Sensitivity < 3.5 ng/L (<3.5-17.0)
[2020-12-12] MEDS: levoFLOXacin/D5W 750 MG/150 ML PIGGYBACK 100 MG IV (22:49)
[2020-12-12 22:56] VITALS: BP 100/53; PULSE 98; RESP 25; TEMP 37.3; O2SAT 92
[2020-12-12 23:03] LABS: Glucose Urine UA NEG (NEG); Leukocyte Esterase Urine NEG (NEG); Nitrite Urine NEG (NEG); Specific Gravity - Urine 1.025 (1.005-1.025); Urine Blood NEG (NEG); Urine Ketones 5 MG/DL (NEG); Urine Protein TRACE MG/DL (NEG-TRACE)
--- NOTE | 2020-12-12 23:26 | PC.NURSE ---
THIS RN TO BEDSIDE TO MEDICATE PER MAR WITH COUGH SUPPRESSANT. PT REPORTS ITCHINESS AT IV INSERSTION SITE ON L WRIST. NO SIGNS OF INFILTRATION NOTED. HIVES PRESENT. IV ABX STOPPED, DR BRANCH MADE AWARE. PLAN TO STOP ABX, PLAN FOR ADMIN OF ANTIHISTAMINE. PT WITHOUT S/S OF RESPIRATORY SX R/T ALLERGIC RXN
[2020-12-12] MEDS: guaiFEN/Codeine SF 200/20/10ML 10 ML LIQUID PO (23:29)
[2020-12-12 23:32] LABS: Appearance Urine CLEAR; Color Urine DARK YELLOW
[2020-12-12 23:44] VITALS: BP 118/64; PULSE 101; RESP 20
[2020-12-13] VITALS (14 sets, daily range): BP systolic 98–140; BP diastolic 64–78; PULSE 80–105; RESP 18–25; TEMP 36.3–37.4; O2SAT 92–97
[2020-12-13 00:24] LABS: UPreg QC Valid YES; Urine Pregnancy NEGATIVE (NEGATIVE)
--- NOTE | 2020-12-13 00:25 | PC.NURSE ---
Pt continues to c/o L anterior CP. Pt's cough is less frequent s/p cough suppressant. Pt afebrile at this time. IVF continue infusing. Pt reminded to keep L wrist straight as bending it causes fluids not to infuse properly. Pt expresses understanding of instructions. Pt provided warm blanket and PO fluids per request. No additional concerns at this time
--- NOTE | 2020-12-13 00:58 | ED_ITS ---
HPI - URI/Sore Throat General Chief Complaint: Upper Respiratory Symptoms Stated Complaint: cough fever ?COVID Time Seen by Provider: 12/12/20 21:05 Source: patient and EMS Mode of arrival: EMS Limitations: no limitations History of Present Illness HPI Narrative: 50-year-old female with history of COPD/asthma came in today with fever and feeling shortness of breath for the past 2 days. Patient also been having dry cough for the past 2 days. Related Data Home Medications Medication Instructions Recorded Confirmed acetaminophen 500 mg PO TID PRN 10/08/20 12/12/20 fluticasone propion-salmeterol 1 inh INHALATION BID 10/08/20 12/12/20 [AirDuo RespiClick] omeprazole 20 mg PO DAILY 10/08/20 12/12/20 lithium carbonate 300 mg PO BID 11/27/20 12/12/20 prazosin 1 mg PO BEDTIME 12/11/20 12/12/20 quetiapine 50 mg PO DAILY PRN 12/11/20 12/12/20 quetiapine [Seroquel] 50 mg PO BEDTIME PRN 12/11/20 12/12/20 sertraline 100 mg PO DAILY 12/11/20 12/12/20 valacyclovir [Valtrex] 1,000 mg PO BID 12/11/20 12/12/20 Previous Rx's Medication Instructions Recorded trazodone 50 mg PO BEDTIME PRN #15 tab 10/15/20 albuterol sulfate 2 puff INHALATION QID PRN #1 g 11/29/20 nicotine [Nicoderm CQ] 1 patch TRANSDERMAL Q24H #14 ea 11/29/20 Allergies Allergy/AdvReac Type Severity Reaction Status Date / Time aspirin [Aspirin] Allergy Severe HIVES,THROAT Verified 12/12/20 20:36 SWELLS bee pollen [BEE STINGS] Allergy Severe ANAPHYLAXIS Verified 12/12/20 20:36 diphenhydramine Allergy Severe hives, Verified 12/12/20 20:36 [From BENADRYL ALLERGY] throat swells Penicillins [PCN] Allergy Severe HIVES Verified 12/12/20 20:36 THROAT SWELLS Sulfa (Sulfonamide Allergy Intermediate HIVES Verified 12/12/20 20:36 Antibiotics) [SULFA (SULFONAMIDE ANTIBIOTICS)] tramadol [TRAMADOL] Allergy Intermediate ITCHING Verified 12/12/20 20:36 latex [LATEX] Allergy Unknown UNKNOWN Verified 12/12/20 20:36 penicillin G Allergy Unknown Unknown Verified 12/12/20 20:36 bee stings Allergy Unknown Unknown Uncoded 12/12/20 20:36 DairyCare Allergy Unknown Unknown Uncoded 12/12/20 20:36 sulfa drugs Allergy Unknown Unknown Uncoded 12/12/20 20:36 Review of Systems Review of Systems: All other systems are reviewed and are negative Constitutional: Reports as per HPI and Reports no additional constitutional complaints Eyes: Reports as per HPI and Reports no additional eye complaints Reports system reviewed and no additional complaints, except as documented Cardiovascular: Reports as per HPI and Reports no additional cardiovascular comp laints Respiratory: Reports as per HPI and Reports no additional respiratory complaints Gastrointestinal: Reports as per HPI and Reports no additional gastrointestinal complaints Genitourinary: Reports no additional female genitourinary complaints Musculoskeletal: Reports no additional musculoskeletal complaints Skin/Breast: Reports system reviewed and no additional complaints, except as docu Psychiatric: Reports no additional psychiatric complaints Endocrine: Reports no additional endocrine complaints Hematologic/Lymphatic: Reports no additional hematologic/lymphatic complaints Allergic/Immunologic: Reports no additional allergic/immunologic complaints Reports system reviewed and no additional complaints, except as documented and Reports Abnormal speech present [facility] Past Medical History Medical History Bipolar disorder Borderline personality disorder COPD (chronic obstructive pulmonary disease) Depression Surgical History History of ankle surgery History of appendectomy History of back surgery Hx of cholecystectomy Family History Family History Mother COPD (chronic obstructive pulmonary disease) Social History Social History Household Members: None Housing: Apartment Alcohol intake: former Smoking Status: Current every day smoker Tobacco Type: Cigarette Cigarettes Per Day: 5 Years Smoked: >20 Smoked in Last 30 Days: Yes Second Hand Smoke Exposure: No Use of substances other than those prescribed or required for medical reasons: No Advance Directives: No Advance Directives Information Provided: No service: No Current occupational status: unemployed Physical Exam Vital Signs: Vital Signs: Last Vital Signs Temp 99.3 F 12/13/20 00:18 Pulse 93 12/13/20 00:56 Resp 24 H 12/13/20 00:56 BP 132/76 12/13/20 00:56 Pulse Ox 93 12/13/20 00:56 Body Mass Index 38.7 Vital signs have been reviewed as normal and appeared to be correct. Blood pressure normal. Heart rate normal. Respiration rate fast. Temperature febrile. Oxygen saturation normal. Appearance: Alert. Oriented X3. No acute distress. Head: Normal external exam. Normocephalic. Atraumatic. No Garrett signs noted. No raccoon eyes noted Eyes: PERRLA. EOMI. Conjunctiva and sclera normal. Eyelids normal. ENT: EAC normal. TM's Normal. Pharynx normal. Uvula midline. Moist mucous membranes. No trismus noted. No drooling noted. No muffled voice noted. Neck: Normal inspection. Neck supple. FROM. No adenopathy. Thyroid Normal. No me ningeal signs. No neck mass noted. CVS: Normal heart rate and rhythm. Heart sound normal. No murmurs noted. Pulses normal throughout. Respiratory: No respiratory distress. Painless inspiration. Breath sounds normal. Mild diffuse expiratory wheezes, no rales or rhonchi noted. Chest nontender. No accessory muscle usage noted or decreased air movement noted. Abdomen: Soft and nontender. Bowel sounds normal in all 4 quadrants. No distention noted. No organomegaly noted. No visible injury noted. Back: No CVA tenderness. Full range of motion noted. Skin: Skin warm and dry. Normal skin color. Normal skin turgor. No rashes/lesions/lacerations noted. Extremities: No lower extremity edema. Extremities exhibit normal range of motion. Extremities nontender. Neuro: Oriented X 3. No motor deficit. No sensory deficit. Reflexes normal. Course Course Course Narrative: 50-year-old female with history of COPD due to longstanding history of smoking. Presented with cough, shortness of breath, fever and chills. Meet criteria for SIRS. X-ray is showing no pneumonia, COVID 19 testing is negative. Patient was given 1 dose of Levaquin, Solu-Medrol, magnesium, bronchodilator. Patient partially improved. Will admit. MDM - URI/Sore Throat Lab Data Result diagrams: 12/12/20 22:00 12/12/20 22:00 Labs: Lab Results 12/12/20 12/12/20 12/12/20 Range/Units 20:49 22:00 22:00 WBC 14.6 H (4.8-10.8) X10*3/uL RBC 4.39 (4.20-5.50) X10*6/uL Hgb 13.1 (12.0-16.0) g/dl Hct 40.6 (37-47) % MCV 92.5 (80-98) fL MCH 29.8 (27.0-33.0) pg MCHC 32.3 (31.0-35.0) g/dl RDW 12.5 (11.0-16.0) % Plt Count 255 (160-400) X10*3/uL MPV 10.1 (9.4-12.3) fL Immature Gran % (Auto) 0.2 (0.0-0.4) % Neut % (Auto) 81.9 H (45-73) % Lymph % (Auto) 12.4 L (20-40) % [place] % (Auto) 5.0 (2-11) % Eos % (Auto) 0.1 (0-4) % Baso % (Auto) 0.4 (0-2) % Lymph # (Auto) 1.8 (1.2-4.9) X10*3/uL [place] # (Auto) 0.7 (0.1-1.2) X10*3/uL Eos # (Auto) 0.0 (0.0-0.4) X10*3/uL Baso # (Auto) 0.1 (0.0-0.2) X10*3/uL Abs Immat Gran (auto) 0.03 (0.00-0.03) X10*3/uL Absolute Neuts (auto) 12.0 H (2.0-8.3) X10*3/uL Absolute Nucleated RBC 0.000 (0.0-0.012) X10*3/uL Nucleated RBC % (auto) 0.0 (0.0-0.2) /100WBC Sodium 140 (135-145) mmol/L Potassium 4.3 (3.3-5.1) mmol/L Chloride 104 (96-108) mmol/L Carbon Dioxide 26 (22-29) mmol/L Anion Gap 14 (12-20) BUN 10 (9-16) mg/dL Creatinine 0.69 (0.5-1.4) mg/dL Estim Creat Clear Calc 123.2 Estimated GFR > 60 Random Glucose 112 (60-115) mg/dL Lactic Acid (0.5-2.0) mmol/L Calcium 9.1 (8.4-10.2) mg/dL Total Bilirubin 0.4 (0.0-1.0) mg/dL Direct Bilirubin 0.2 (0.0-0.5) mg/dL AST 14 (5-31) U/L ALT 16 (0-31) U/L Alkaline Phosphatase 88 (39-117) U/L Troponin I High Sens (<3.5-17.0) ng/L B-Natriuretic Peptide (<100) pg/mL Total Protein 6.8 (6.5-8.0) g/dL Albumin 4.3 (3.5-5.0) g/dL Lipase 24 (8-78) U/L Urine Color Urine Appearance Urine pH (5.0-8.0) Ur Specific [place] (1.005-1.025) Urine Protein (NEG-TRACE) MG/DL Urine Glucose (UA) (NEG) MG/DL Urine Ketones (NEG) MG/DL Urine Blood (NEG) Urine Nitrite (NEG) Ur Leukocyte Esterase (NEG) Urine Test (NEGATIVE) Coronavirus (PCR) NEGATIVE (Negative) Influenza Type A (PCR) NEGATIVE (Negative) Influenza Type B (PCR) NEGATIVE (Negative) RSV RNA Qual (PCR) NEGATIVE (Negative) 12/12/20 12/12/20 12/12/20 Range/Units 22:00 22:00 22:34 WBC (4.8-10.8) X10*3/uL RBC (4.20-5.50) X10*6/uL Hgb (12.0-16.0) g/dl Hct (37-47) % MCV (80-98) fL MCH (27.0-33.0) pg MCHC (31.0-35.0) g/dl RDW (11.0-16.0) % Plt Count (160-400) X10*3/uL MPV (9.4-12.3) fL Immature Gran % (Auto) (0.0-0.4) % Neut % (Auto) (45-73) % Lymph % (Auto) (20-40) % [place] % (Auto) (2-11) % Eos % (Auto) (0-4) % Baso % (Auto) (0-2) % Lymph # (Auto) (1.2-4.9) X10*3/uL [place] # (Auto) (0.1-1.2) X10*3/uL Eos # (Auto) (0.0-0.4) X10*3/uL Baso # (Auto) (0.0-0.2) X10*3/uL Abs Immat Gran (auto) (0.00-0.03) X10*3/uL Absolute Neuts (auto) (2.0-8.3) X10*3/uL Absolute Nucleated RBC (0.0-0.012) X10*3/uL Nucleated RBC % (auto) (0.0-0.2) /100WBC Sodium (135-145) mmol/L Potassium (3.3-5.1) mmol/L Chloride (96-108) mmol/L Carbon Dioxide (22-29) mmol/L Anion Gap (12-20) BUN (9-16) mg/dL Creatinine (0.5-1.4) mg/dL Estim Creat Clear Calc Estimated GFR Random Glucose (60-115) mg/dL Lactic Acid 1.0 (0.5-2.0) mmol/L Calcium (8.4-10.2) mg/dL Total Bilirubin (0.0-1.0) mg/dL Direct Bilirubin (0.0-0.5) mg/dL AST (5-31) U/L ALT (0-31) U/L Alkaline Phosphatase (39-117) U/L Troponin I High Sens < 3.5 (<3.5-17.0) ng/L B-Natriuretic Peptide 37 (<100) pg/mL Total Protein (6.5-8.0) g/dL Albumin (3.5-5.0) g/dL Lipase (8-78) U/L Urine Color DARK YELLOW Urine Appearance CLEAR Urine pH 6.0 (5.0-8.0) Ur Specific [place] 1.025 (1.005-1.025) Urine Protein TRACE (NEG-TRACE) MG/DL Urine Glucose (UA) NEG (NEG) MG/DL Urine Ketones 5 (NEG) MG/DL Urine Blood NEG (NEG) Urine Nitrite NEG (NEG) Ur Leukocyte Esterase NEG (NEG) Urine Test NEGATIVE (NEGATIVE) Coronavirus (PCR) (Negative) Influenza Type A (PCR) (Negative) Influenza Type B (PCR) (Negative) RSV RNA Qual (PCR) (Negative) Imaging Data Chest x-ray: Radiologist's impression: Unremarkable examination. ECG Data Interpretation: Sinus tachycardia at 102 beats per minutes, normal axis deviation, normal intervals, no ST-T changes. Discharge Plan Discharge Clinical Impression: COPD exacerbation Patient Disposition: Admitted As Inpatient Prescriptions: No Action acetaminophen 500 mg Tablet 500 mg PO TID PRN (Reason: Pain) RF: 0 omeprazole 20 mg Capsule,Delayed Release(Dr/Ec) 20 mg PO DAILY RF: 0 fluticasone propion-salmeterol [AirDuo RespiClick] 232-14 mcg/actuation Aerosol Powdr Breath Activated 1 inh INHALATION BID RF: 0 trazodone 50 mg Tablet 50 mg PO BEDTIME PRN (Reason: Insomnia) Qty: 15 RF: 1 valacyclovir [Valtrex] 1 gram Tablet 1,000 mg PO BID RF: 0 prazosin 1 mg Capsule 1 mg PO BEDTIME RF: 0 sertraline 100 mg Tablet 100 mg PO DAILY RF: 0 quetiapine 50 mg Tablet 50 mg PO DAILY PRN (Reason: Agitation) RF: 0 quetiapine [Seroquel] 50 mg tablet 50 mg PO BEDTIME PRN (Reason: Insomnia) RF: 0 lithium carbonate 300 mg Tablet Extended Release 300 mg PO BID RF: 0 albuterol sulfate 90 mcg/actuation Hfa Aerosol Inhaler 2 puff INHALATION QID PRN (Reason: Shortness Of Breath Or Wheezing) Qty: 1 RF: 0 nicotine [Nicoderm CQ] 7 mg/24 hr patch 24 hour 1 patch transdermal Q24H Qty: 14 RF: 0
--- NOTE | 2020-12-13 01:53 | PC.NURSE ---
PT GIVEN A SNACK AND SODA, PT AWAKE AND ALERT, COUGH IMPROVED FOLLOWING COUGH SYRUP.
[2020-12-13] MEDS: Acetaminophen 325 MG TABLET 650 MG PO (02:49)
--- NOTE | 2020-12-13 04:17 | PC.NURSE ---
Methylprednisolone not given as ordered for 0409 d/t previous dose given in ED at 2223. Contacted night pharmacy to change time of medications for q12h timing
[2020-12-13] MEDS: Heparin Sodium,Porcine 5,000 UNIT/ML VIAL 5000 UNIT SUBCUT ×2 (04:40→15:51)
[2020-12-13] MEDS: Azithromycin 500 MG TABLET PO (04:41)
[2020-12-13] MEDS: Nicotine 7 MG PATCH.TD24 TRANSDERMA (04:41)
--- NOTE | 2020-12-13 05:26 | PM.IMHP ---
History of Present Illness Date of Service: 12/13/20 Chief Complaint: Shortness of breath This is a 50-year-old female with past medical history of COPD, bipolar disorder and borderline personality disorder presents to the hospital with complaints of shortness of breath. Patient reports that her shortness of breath started yesterday, associated cough, sputum production, wheezing. No fever or chills. Patient has chest wall pain as a result of the coughing but no abdominal pain nausea or vomiting, no diarrhea constipation. No urinary symptoms and no lower extremity edema. She reports that 1 of her friend's daughter's was sick but not with COVID, she has not had any recent sick contacts otherwise and no recent travel. On arrival to the hospital patient vital significant for temperature of 101.9?, heart rate of 113, respiratory rate of 25, satting 93 care. Labs are significant for WBC count 14.6, otherwise unremarkable. Chest x-ray negative for any significant abnormality Past medical history: COPD, bipolar disorder, borderline personality the order Surgical history: Appendectomy, cholecystectomy, ankle surgery, back surgery Family history: COPD in mother Social history: Comes from home, current smoker smokes about 3-4 cigarettes a day, denies alcohol or illicit drugs Review of Systems Review of Systems: Yes all other systems are reviewed and are negative [facility] Medical History Bipolar disorder Borderline personality disorder COPD (chronic obstructive pulmonary disease) Depression Family History Mother COPD (chronic obstructive pulmonary disease) Surgical History History of ankle surgery History of appendectomy History of back surgery Hx of cholecystectomy Social History Household Members: None Housing: Apartment Alcohol intake: former Smoking Status: Current every day smoker Tobacco Type: Cigarette Cigarettes Per Day: 5 Years Smoked: >20 Smoked in Last 30 Days: Yes Second Hand Smoke Exposure: No Use of substances other than those prescribed or required for medical reasons: No Advance Directives: No Advance Directives Information Provided: No service: No Current occupational status: unemployed Meds Allergies Allergy/AdvReac Type Severity Reaction Status Date / Time aspirin [Aspirin] Allergy Severe HIVES,THROAT Verified 12/12/20 20:36 SWELLS bee pollen [BEE STINGS] Allergy Severe ANAPHYLAXIS Verified 12/12/20 20:36 diphenhydramine Allergy Severe hives, Verified 12/12/20 20:36 [From BENADRYL ALLERGY] throat swells Penicillins [PCN] Allergy Severe HIVES Verified 12/12/20 20:36 THROAT SWELLS Sulfa (Sulfonamide Allergy Intermediate HIVES Verified 12/12/20 20:36 Antibiotics) [SULFA (SULFONAMIDE ANTIBIOTICS)] tramadol [TRAMADOL] Allergy Intermediate ITCHING Verified 12/12/20 20:36 latex [LATEX] Allergy Unknown UNKNOWN Verified 12/12/20 20:36 penicillin G Allergy Unknown Unknown Verified 12/12/20 20:36 levofloxacin [From Levaquin] Allergy Hives Verified 12/13/20 04:57 bee stings Allergy Unknown Unknown Uncoded 12/12/20 20:36 DairyCare Allergy Unknown Unknown Uncoded 12/12/20 20:36 sulfa drugs Allergy Unknown Unknown Uncoded 12/12/20 20:36 Active Medications: Current Medications Generic Name Dose Route Start Last Admin Trade Name Freq PRN Reason Stop Dose Admin Acetaminophen 650 mg 12/13/20 04:09 Acetaminophen 325 Mg Tablet PO Q6H PRN Pain, Mild (Pain Scale 1-3) Albuterol Sulfate 2 puff 12/13/20 04:09 Albuterol Sulfate 90 Mcg 8 Gm Inhaler INHALE QID PRN Shortness Of Breath Or Wheezing Albuterol/Ipratropium 3 ml 12/13/20 08:00 Albuterol/Iprat 2.5/0.5mg 3 Ml Ampul.Neb INHALE RQ4H WHILE AWAKE TEJA Albuterol/Ipratropium 3 ml 12/13/20 04:09 Albuterol/Iprat 2.5/0.5mg 3 Ml Ampul.Neb INHALE RQ4H PRN Shortness of Breath/Wheezing Azithromycin 500 mg 12/13/20 04:09 12/13/20 04:41 Azithromycin 500 Mg Tablet PO 500 mg Q24H TEJA Administration Docusate Sodium 100 mg 12/13/20 04:09 Docusate Sodium 100 Mg Capsule PO DAILY PRN Constipation Heparin Sodium (Porcine) 5,000 unit 12/13/20 04:09 12/13/20 04:40 Heparin Sodium,Porcine 5,000 Unit/Ml Vial SUBCUT 5,000 unit Q12H [facility] Administration [place] Carbonate 300 mg 12/13/20 09:00 [place] Carbonate Er 300 Mg Tablet.Er PO BID [facility] Methylprednisolone Sodium Succinate 40 mg 12/13/20 10:00 Methylprednisolone Sod Succ/Pf 40 Mg/Ml Vial IVPUSH Q12H [facility] Nicotine 7 mg 12/13/20 04:09 12/13/20 04:41 Nicotine 7 Mg Patch.Td24 TRANSDERMA 7 mg DAILY [facility] Administration Omeprazole 20 mg 12/13/20 09:00 Omeprazole 20 Mg Capsule.Dr PO DAILY [facility] Ondansetron HCl 4 mg 12/13/20 04:09 Ondansetron Hcl 4 Mg/2 Ml Vial IVPUSH Q8H PRN Nausea and Vomiting Pharmacy Consult 1 each 12/12/20 21:09 Consult Rx Perform Med Rec MISCELLANE ONCE PRN Consult order Prazosin HCl 1 mg 12/13/20 21:00 Prazosin Hcl 1 Mg Capsule PO BEDTIME [facility] Protocol Quetiapine Fumarate 50 mg 12/13/20 04:09 Quetiapine Fumarate 50 Mg Tablet PO DAILY PRN Agitation Quetiapine Fumarate 50 mg 12/13/20 04:09 Quetiapine Fumarate 50 Mg Tablet PO BEDTIME PRN Insomnia Sertraline HCl 100 mg 12/13/20 09:00 Sertraline Hcl 100 Mg Tablet PO DAILY [facility] Sodium Chloride 3 ml 12/13/20 08:00 0.9 % Sodium Chloride Flush 3 Ml Syringe IVFLUSH QSHIFT [facility] Trazodone HCl 50 mg 12/13/20 04:09 Trazodone Hcl 50 Mg Tablet PO BEDTIME PRN Insomnia Valacyclovir HCl 1,000 mg 12/13/20 09:00 Valacycyclovir Hcl 1,000 Mg Tablet PO BID [facility] Home Medications Medication Instructions Recorded Confirmed Last Taken Type acetaminophen 500 mg PO TID PRN 10/08/20 12/12/20 Unknown History fluticasone propion-salmeterol 1 inh INHALATION BID 10/08/20 12/12/20 11/05/20 10:00 History [AirDuo RespiClick] omeprazole 20 mg PO DAILY 10/08/20 12/12/20 11/05/20 07:00 History lithium carbonate 300 mg PO BID 11/27/20 12/12/20 Unknown History prazosin 1 mg PO BEDTIME 12/11/20 12/12/20 Unknown History quetiapine 50 mg PO DAILY PRN 12/11/20 12/12/20 Unknown History quetiapine [Seroquel] 50 mg PO BEDTIME PRN 12/11/20 12/12/20 Unknown History sertraline 100 mg PO DAILY 12/11/20 12/12/20 Unknown History valacyclovir [Valtrex] 1,000 mg PO BID 12/11/20 12/12/20 Unknown History Physical Exam Vital Signs and Narrative: Vital Signs: Last Vital Signs Temp 99.3 F 12/13/20 00:18 Pulse 83 12/13/20 04:39 Resp 22 H 12/13/20 04:39 BP 98/64 12/13/20 04:39 Pulse Ox 94 12/13/20 04:39 Body Mass Index 38.7 Const: General: cooperative and no acute distress Orientation/consciousness: patient oriented x3 Eyes: General: appearance normal, both eyes and all related structures Pupils: Equal, round and reactive pupils present Resp: Other: Has significant audible wheezing, becomes winded and short of breath with min effort specially when talking given history, coughing during history taking Effort & Inspection: audible wheezes, Actively coughing and uses accessory muscles Cardio: Rate: regular rate Rhythm: regular rhythm GI: Palpation (GI): Soft to palpation Auscultation: normal bowel sounds Skin: General skin exam: no rashes or lesions noted Neuro: General: patient oriented x3 Cranial nerves: Yes Equal, round and reactive pupils present Cognition (Neuro): normal cognition Extrem: General: Yes normal to inspection and Yes no pedal edema Results Labs CBC and Chem 7: 12/12/20 22:00 12/12/20 22:00 Labs: Laboratory Results - last 24 hr 12/12/20 12/12/20 12/12/20 20:49 22:00 22:00 MCV 92.5 MCH 29.8 MCHC 32.3 RDW 12.5 Plt Count 255 MPV 10.1 Immature Gran % (Auto) 0.2 Neut % (Auto) 81.9 H Lymph % (Auto) 12.4 L [place] % (Auto) 5.0 Eos % (Auto) 0.1 Baso % (Auto) 0.4 Lymph # (Auto) 1.8 [place] # (Auto) 0.7 Eos # (Auto) 0.0 Baso # (Auto) 0.1 Abs Immat Gran (auto) 0.03 Absolute Neuts (auto) 12.0 H Absolute Nucleated RBC 0.000 Nucleated RBC % (auto) 0.0 Anion Gap 14 Estim Creat Clear Calc 123.2 Estimated GFR > 60 Random Glucose 112 Lactic Acid Calcium 9.1 Total Bilirubin 0.4 Direct Bilirubin 0.2 AST 14 ALT 16 Alkaline Phosphatase 88 Troponin I High Sens B-Natriuretic Peptide Total Protein 6.8 Albumin 4.3 Lipase 24 Urine Color Urine Appearance Urine pH Ur Specific [place] Urine Protein Urine Glucose (UA) Urine Ketones Urine Blood Urine Nitrite Ur Leukocyte Esterase Urine Test Coronavirus (PCR) NEGATIVE Influenza Type A (PCR) NEGATIVE Influenza Type B (PCR) NEGATIVE RSV RNA Qual (PCR) NEGATIVE 12/12/20 12/12/20 12/12/20 22:00 22:00 22:34 MCV MCH MCHC RDW Plt Count MPV Immature Gran % (Auto) Neut % (Auto) Lymph % (Auto) [place] % (Auto) Eos % (Auto) Baso % (Auto) Lymph # (Auto) [place] # (Auto) Eos # (Auto) Baso # (Auto) Abs Immat Gran (auto) Absolute Neuts (auto) Absolute Nucleated RBC Nucleated RBC % (auto) Anion Gap Estim Creat Clear Calc Estimated GFR Random Glucose Lactic Acid 1.0 Calcium Total Bilirubin Direct Bilirubin AST ALT Alkaline Phosphatase Troponin I High Sens < 3.5 B-Natriuretic Peptide 37 Total Protein Albumin Lipase Urine Color DARK YELLOW Urine Appearance CLEAR Urine pH 6.0 Ur Specific [place] 1.025 Urine Protein TRACE Urine Glucose (UA) NEG Urine Ketones 5 Urine Blood NEG Urine Nitrite NEG Ur Leukocyte Esterase NEG Urine Test NEGATIVE Coronavirus (PCR) Influenza Type A (PCR) Influenza Type B (PCR) RSV RNA Qual (PCR) Imaging Radiologist's Impressions: Impressions Chest X-Ray 12/12/20 20:57 IMPRESSION: Unremarkable examination. Assessment and Plan (1) COPD exacerbation: Status: Acute (2) Leukocytosis: Status: Acute (3) Tobacco use: Status: Acute (4) Bipolar disorder: Status: Acute (5) Borderline personality disorder: Status: Acute This is a 50-year-old female with past medical history of COPD who presents to the hospital with cough, sputum production, and shortness of breath. Patient will be admitted for management of COPD exacerbation # COPD exacerbation - has cough, dyspnea, sputum production, - no hypoxia, no evidence of pneumonia on stat chest x-ray - COVID PCR negative Plan: -will start on Solu-Medrol IV 40 b.i.d., DuoNeb p.r.n., and scheduled, azithromycin - follow respiratory status # leukocytosis -secondary to COPD exacerbation - will start patient on azithromycin - follow CBC # tobacco use disorder - not interested in quitting at this time # bipolar disorder - continue lithium, and Seroquel # borderline personality disorder - Seroquel, trazodone and prazosin DVT prophylaxis: Heparin subQ
[2020-12-13] MEDS: Albuterol/Iprat 2.5/0.5MG 3 ML AMPUL.NEB INHALE ×4 (07:58→19:37)
[2020-12-13] MEDS: Lithium Carbonate ER 300 MG TABLET.ER PO ×2 (09:06→21:19)
[2020-12-13] MEDS: 0.9 % Sodium Chloride Flush 3 ML SYRINGE IVFLUSH ×2 (09:06→15:54)
[2020-12-13] MEDS: Sertraline HCL 100 MG TABLET PO (09:06)
[2020-12-13] MEDS: Omeprazole 20 MG CAPSULE.DR PO (09:06)
[2020-12-13] MEDS: Ibuprofen 400 MG TABLET PO ×2 (12:14→20:10)
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
[2020-12-13] MEDS: Benzonatate 100 MG CAPSULE PO ×2 (17:22→21:17)
[2020-12-13] MEDS: guaiFENesin DM 600/30 1 TAB TAB.ER.12H PO ×2 (17:22→21:17)
[2020-12-13] MEDS: Prazosin HCL 1 MG CAPSULE PO (21:17)
[2020-12-14] VITALS (9 sets, daily range): BP systolic 109–145; BP diastolic 55–75; PULSE 75–91; RESP 18–20; TEMP 35.9–36.9; O2SAT 93–96
[2020-12-14] MEDS: 0.9 % Sodium Chloride Flush 3 ML SYRINGE IVFLUSH ×4 (00:20→20:54)
[2020-12-14] MEDS: Azithromycin 500 MG TABLET PO (03:39)
[2020-12-14] MEDS: Heparin Sodium,Porcine 5,000 UNIT/ML VIAL 5000 UNIT SUBCUT ×2 (03:39→17:17)
[2020-12-14 06:58] LABS: Hematocrit 37.9 % (37-47); Mean Corpuscular HGB Conc 31.7 g/dl (31.0-35.0); Mean Corpuscular Hemoglobin 29.9 pg (27.0-33.0); Mean Corpuscular Volume 94.3 fL (80-98); Mean Platelet Volume 10.9 fL (9.4-12.3); Platelet Count 261 X10*3/uL (160-400); Red Blood Count 4.02 X10*6/uL (4.20-5.50); Red Cell Distribution Width 12.7 % (11.0-16.0); White Blood Count 12.9 X10*3/uL (4.8-10.8)
[2020-12-14] MEDS: Albuterol/Iprat 2.5/0.5MG 3 ML AMPUL.NEB INHALE ×4 (07:24→19:41)
[2020-12-14] MEDS: guaiFENesin 200 MG/10 ML 10 ML LIQUID PO (07:29)
[2020-12-14 07:31] LABS: Anion Gap 13 (12-20); Blood Urea Nitrogen 14 mg/dL (9-16); Calcium 9.1 mg/dL (8.4-10.2); Carbon Dioxide 25 mmol/L (22-29); Chloride 108 mmol/L (96-108); Estimated Glomerular Filt Rate > 60; Glucose Random 109 mg/dL (60-115); Potassium 4.7 mmol/L (3.3-5.1); Sodium 141 mmol/L (135-145)
[2020-12-14] MEDS: Nicotine 7 MG PATCH.TD24 TRANSDERMA (08:15)
[2020-12-14] MEDS: Benzonatate 100 MG CAPSULE PO (08:17)
[2020-12-14] MEDS: Lithium Carbonate ER 300 MG TABLET.ER PO ×2 (08:17→20:53)
[2020-12-14] MEDS: guaiFENesin DM 600/30 1 TAB TAB.ER.12H PO ×2 (08:17→21:37)
[2020-12-14] MEDS: Sertraline HCL 100 MG TABLET PO (08:18)
[2020-12-14] MEDS: Omeprazole 20 MG CAPSULE.DR PO (08:18)
--- NOTE | 2020-12-14 10:47 | HO.PM.IMPN ---
Subjective Subjective Date of Service: 12/14/20 Interval History: The patient was seen and evaluated this morning Laying in bed, feels SOB and coughing Denies any fever, chills or shortness of breath No reported other overnight events. Systemic review: No fever, chills or weakness No chest pain, palpitation significant exertional shortness of breath and coughing No abdominal pain, nausea or vomiting No urinary symptoms No any rash or wounds Physical Exam Vital Signs: Vital Signs: Last Vital Signs Temp 97.6 F 12/14/20 07:45 Pulse 79 12/14/20 07:45 Resp 20 12/14/20 07:45 BP 111/57 L 12/14/20 07:45 Pulse Ox 94 12/14/20 07:45 Body Mass Index 38.7 Const: Other: Constitutional : Alert, oriented, not in distress Neck : Normal inspection, Supple Cardiovascular : RRR, S1 S2, no lower extremity edema Respiratory : decrease bilateral air entry, no crackles, bilateral wheezes Gastrointestinal: soft, lax, Normal bowel sounds, Non tender Skin : Warm/Dry, No rash Neurological : Alert & oriented x3, No focal deficit Objective Data Current Medications Generic Name Dose Route Start Last Admin Trade Name Freq PRN Reason Stop Dose Admin Acetaminophen 650 mg 12/13/20 04:09 Acetaminophen 325 Mg Tablet PO Q6H PRN Pain, Mild (Pain Scale 1-3) Albuterol Sulfate 2 puff 12/13/20 04:09 Albuterol Sulfate 90 Mcg 8 Gm Inhaler INHALE QID PRN Shortness Of Breath Or Wheezing Albuterol/Ipratropium 3 ml 12/13/20 08:00 12/14/20 07:24 Albuterol/Iprat 2.5/0.5mg 3 Ml Ampul.Neb INHALE 3 ml RQ4H WHILE AWAKE TEJA Administration Albuterol/Ipratropium 3 ml 12/13/20 04:09 Albuterol/Iprat 2.5/0.5mg 3 Ml Ampul.Neb INHALE RQ4H PRN Shortness of Breath/Wheezing Azithromycin 500 mg 12/13/20 04:09 12/14/20 03:39 Azithromycin 500 Mg Tablet PO 500 mg Q24H TEJA Administration Benzonatate 200 mg 12/14/20 15:00 Benzonatate 100 Mg Capsule PO TID TEJA Docusate Sodium 100 mg 12/13/20 04:09 Docusate Sodium 100 Mg Capsule PO DAILY PRN Constipation Guaifenesin 10 ml 12/13/20 17:11 12/14/20 07:29 Guaifenesin 200 Mg/10 Ml 10 Ml Liquid PO 10 ml Q4H PRN Administration Cough Guaifenesin/Codeine Phosphate 10 ml 12/14/20 10:45 Guaifen/Codeine Sf 200/20/10ml 10 Ml Liquid PO 12/16/20 04:46 Q6H TEJA Guaifenesin/Dextromethorphan 1 tab 12/13/20 17:15 12/14/20 08:17 Guaifenesin Dm 600/30 1 Tab Tab.Er.12h PO 1 tab BID TEJA Administration Heparin Sodium (Porcine) 5,000 unit 12/13/20 04:09 12/14/20 03:39 Heparin Sodium,Porcine 5,000 Unit/Ml Vial SUBCUT 5,000 unit Q12H TEJA Administration Ibuprofen 400 mg 12/13/20 10:07 12/13/20 20:10 Ibuprofen 400 Mg Tablet PO 400 mg Q6H PRN Administration Pain, Moderate (Pain Scale 4-6 [place] Carbonate 300 mg 12/13/20 09:00 12/14/20 08:17 [place] Carbonate Er 300 Mg Tablet.Er PO 300 mg BID TEJA Administration Methylprednisolone Sodium Succinate 40 mg 12/13/20 10:00 12/14/20 08:17 Methylprednisolone Sod Succ/Pf 40 Mg/Ml Vial IVPUSH 40 mg Q12H TEJA Administration Nicotine 7 mg 12/13/20 04:09 12/14/20 08:15 Nicotine 7 Mg Patch.Td24 TRANSDERMA 7 mg DAILY TEJA Administration Omeprazole 20 mg 12/13/20 09:00 12/14/20 08:18 Omeprazole 20 Mg Capsule. PO 20 mg DAILY TEJA Administration Ondansetron HCl 4 mg 12/13/20 04:09 Ondansetron Hcl 4 Mg/2 Ml Vial IVPUSH Q8H PRN Nausea and Vomiting Pharmacy Consult 1 each 12/12/20 21:09 Consult Rx Perform Med Rec MISCELLANE ONCE PRN Consult order Prazosin HCl 1 mg 12/13/20 21:00 12/13/20 21:17 Prazosin Hcl 1 Mg Capsule PO 1 mg BEDTIME TEJA Administration Protocol Quetiapine Fumarate 50 mg 02/13/21 04:09 Quetiapine Fumarate 50 Mg Tablet PO DAILY PRN Agitation Quetiapine Fumarate 50 mg 12/13/20 04:09 Quetiapine Fumarate 50 Mg Tablet PO BEDTIME PRN Insomnia Sertraline HCl 100 mg 12/13/20 09:00 12/14/20 08:18 Sertraline Hcl 100 Mg Tablet PO 100 mg DAILY TEJA Administration Sodium Chloride 3 ml 12/13/20 08:00 12/14/20 08:18 0.9 % Sodium Chloride Flush 3 Ml Syringe IVFLUSH 3 ml QSHIFT TEJA Administration Trazodone HCl 50 mg 12/13/20 04:09 Trazodone Hcl 50 Mg Tablet PO BEDTIME PRN Insomnia Valacyclovir HCl 1,000 mg 12/13/20 09:00 12/14/20 08:17 Valacycyclovir Hcl 1,000 Mg Tablet PO 1,000 mg BID TEJA Administration Labs CBC & Chem 7: 12/14/20 05:44 12/14/20 05:44 Microbiology Microbiology Results: Microbiology 12/12/20 21:54 Blood - Arterial Blood Culture - Preliminary No growth after 24 hours. 12/12/20 22:01 Blood - Arterial Blood Culture - Preliminary No growth after 24 hours. Assessment and Plan (1) COPD exacerbation: Status: Acute (2) Leukocytosis: Status: Acute (3) Tobacco use: Status: Acute (4) Bipolar disorder: Status: Acute (5) Borderline personality disorder: Status: Acute Assessment and Plan: This is a 50-year-old female with past medical history of COPD who presents to the hospital with cough, sputum production, and shortness of breath. Patient will be admitted for management of COPD exacerbation COPD exacerbation improvin slowly COVID PCR negative Solu-Medrol IV 40 b.i.d. DuoNeb p.r.n. and scheduled azithromycin Cough medications follow respiratory status, consider Pulm eval leukocytosis secondary to COPD exacerbation on azithromycin follow CBC tobacco use disorder interested in quitting at this time NRT bipolar disorder continue lithium, and Seroquel borderline personality disorder Seroquel, trazodone and prazosin DVT prophylaxis Heparin subQ
[2020-12-14] MEDS: guaiFEN/Codeine SF 200/20/10ML 10 ML LIQUID PO ×3 (11:17→23:55)
[2020-12-14] MEDS: Ibuprofen 400 MG TABLET PO ×2 (13:45→20:19)
[2020-12-14] MEDS: Benzonatate 100 MG CAPSULE 200 MG PO ×2 (14:03→20:54)
[2020-12-14] MEDS: Prazosin HCL 1 MG CAPSULE PO (20:53)
[2020-12-15] VITALS (10 sets, daily range): BP systolic 121–164; BP diastolic 66–91; PULSE 75–93; RESP 12–19; TEMP 36.4–36.7; O2SAT 93–98; BMI 38.7
[2020-12-15] MEDS: Heparin Sodium,Porcine 5,000 UNIT/ML VIAL 5000 UNIT SUBCUT ×2 (04:22→15:08)
[2020-12-15] MEDS: Azithromycin 500 MG TABLET PO (04:23)
[2020-12-15] MEDS: guaiFEN/Codeine SF 200/20/10ML 10 ML LIQUID PO ×4 (06:09→23:35)
[2020-12-15] MEDS: Ibuprofen 400 MG TABLET PO ×2 (07:49→16:09)
[2020-12-15] MEDS: Docusate Sodium 100 MG CAPSULE PO (07:51)
[2020-12-15] MEDS: Nicotine 7 MG PATCH.TD24 TRANSDERMA (08:33)
[2020-12-15] MEDS: Benzonatate 100 MG CAPSULE 200 MG PO ×3 (08:33→20:40)
[2020-12-15] MEDS: Omeprazole 20 MG CAPSULE.DR PO (08:34)
[2020-12-15] MEDS: guaiFENesin DM 600/30 1 TAB TAB.ER.12H PO ×2 (08:34→20:41)
[2020-12-15] MEDS: Lithium Carbonate ER 300 MG TABLET.ER PO ×2 (08:34→20:41)
[2020-12-15] MEDS: Sertraline HCL 100 MG TABLET PO (08:34)
[2020-12-15] MEDS: 0.9 % Sodium Chloride Flush 3 ML SYRINGE IVFLUSH ×3 (08:39→20:42)
[2020-12-15] MEDS: Albuterol/Iprat 2.5/0.5MG 3 ML AMPUL.NEB INHALE ×4 (08:44→20:52)
--- NOTE | 2020-12-15 11:30 | P.PNIM_ITS ---
Subjective Subjective Date of Service: 12/15/20 Interval History: The patient was seen and evaluated this morning Laying in bed, feels SOB and coughing but overall better than yesterday Denies any fever, chills but has exertional shortness of breath No reported other overnight events. Systemic review: No fever, chills or weakness No chest pain, palpitation significant exertional shortness of breath and coughing No abdominal pain, nausea or vomiting No urinary symptoms No any rash or wounds Physical Exam Vital Signs: Vital Signs: Last Vital Signs Temp 98.0 F 12/15/20 11:20 Pulse 93 12/15/20 11:20 Resp 18 12/15/20 11:20 BP 123/68 12/15/20 11:20 Pulse Ox 96 12/15/20 11:20 Body Mass Index 38.7 Const: Other: Constitutional : Alert, oriented, not in distress Neck : Normal inspection, Supple Cardiovascular : RRR, S1 S2, no lower extremity edema Respiratory : decrease bilateral air entry, no crackles, bilateral wheezes Gastrointestinal: soft, lax, Normal bowel sounds, Non tender Skin : Warm/Dry, No rash Neurological : Alert & oriented x3, No focal deficit Objective Data Current Medications Generic Name Dose Route Start Last Admin Trade Name Freq PRN Reason Stop Dose Admin Acetaminophen 650 mg 12/13/20 04:09 Acetaminophen 325 Mg Tablet PO Q6H PRN Pain, Mild (Pain Scale 1-3) Albuterol Sulfate 2 puff 12/13/20 04:09 Albuterol Sulfate 90 Mcg 8 Gm Inhaler INHALE QID PRN Shortness Of Breath Or Wheezing Albuterol/Ipratropium 3 ml 12/13/20 08:00 12/15/20 08:44 Albuterol/Iprat 2.5/0.5mg 3 Ml Ampul.Neb INHALE 3 ml RQ4H WHILE AWAKE TEJA Administration Albuterol/Ipratropium 3 ml 12/13/20 04:09 Albuterol/Iprat 2.5/0.5mg 3 Ml Ampul.Neb INHALE RQ4H PRN Shortness of Breath/Wheezing Azithromycin 500 mg 12/13/20 04:09 12/15/20 04:23 Azithromycin 500 Mg Tablet PO 500 mg Q24H TEJA Administration Benzonatate 200 mg 12/14/20 15:00 12/15/20 08:33 Benzonatate 100 Mg Capsule PO 200 mg TID TEJA Administration Docusate Sodium 100 mg 12/13/20 04:09 12/15/20 07:51 Docusate Sodium 100 Mg Capsule PO 100 mg DAILY PRN Administration Constipation Guaifenesin 10 ml 12/13/20 17:11 12/14/20 07:29 Guaifenesin 200 Mg/10 Ml 10 Ml Liquid PO 10 ml Q4H PRN Administration Cough Guaifenesin/Codeine Phosphate 10 ml 12/14/20 12:00 12/15/20 06:09 Guaifen/Codeine Sf 200/20/10ml 10 Ml Liquid PO 12/16/20 06:01 10 ml Q6H TEJA Administration Guaifenesin/Dextromethorphan 1 tab 12/13/20 17:15 12/15/20 08:34 Guaifenesin Dm 600/30 1 Tab Tab.Er.12h PO 1 tab BID TEJA Administration Heparin Sodium (Porcine) 5,000 unit 12/13/20 04:09 12/15/20 04:22 Heparin Sodium,Porcine 5,000 Unit/Ml Vial SUBCUT 5,000 unit Q12H TEJA Administration Ibuprofen 400 mg 12/13/20 10:07 12/15/20 07:49 Ibuprofen 400 Mg Tablet PO 400 mg Q6H PRN Administration Pain, Moderate (Pain Scale 4-6 [place] Carbonate 300 mg 12/13/20 09:00 12/15/20 08:34 [place] Carbonate Er 300 Mg Tablet.Er PO 300 mg BID TEJA Administration Methylprednisolone Sodium Succinate 40 mg 12/13/20 10:00 12/15/20 08:33 Methylprednisolone Sod Succ/Pf 40 Mg/Ml Vial IVPUSH 40 mg Q12H TEJA Administration Nicotine 7 mg 12/13/20 04:09 12/15/20 08:33 Nicotine 7 Mg Patch.Td24 TRANSDERMA 7 mg DAILY TEJA Administration Omeprazole 20 mg 12/13/20 09:00 12/15/20 08:34 Omeprazole 20 Mg Capsule.Dr PO 20 mg DAILY TEJA Administration Ondansetron HCl 4 mg 12/13/20 04:09 Ondansetron Hcl 4 Mg/2 Ml Vial IVPUSH Q8H PRN Nausea and Vomiting Pharmacy Consult 1 each 12/12/20 21:09 Consult Rx Perform Med Rec MISCELLANE ONCE PRN Consult order Prazosin HCl 1 mg 12/13/20 21:00 12/14/20 20:53 Prazosin Hcl 1 Mg Capsule PO 1 mg BEDTIME TEJA Administration Protocol Quetiapine Fumarate 50 mg 12/13/20 04:09 Quetiapine Fumarate 50 Mg Tablet PO DAILY PRN Agitation Quetiapine Fumarate 50 mg 12/13/20 04:09 Quetiapine Fumarate 50 Mg Tablet PO BEDTIME PRN Insomnia Sertraline HCl 100 mg 12/13/20 09:00 12/15/20 08:34 Sertraline Hcl 100 Mg Tablet PO 100 mg DAILY TEJA Administration Sodium Chloride 3 ml 12/13/20 08:00 12/15/20 08:39 0.9 % Sodium Chloride Flush 3 Ml Syringe IVFLUSH 3 ml QSHIFT TEJA Administration Sodium Chloride 1 spray 12/14/20 20:49 Sodium Chloride 0.65 % Nasal 44 Ml Sprbtl NOSTRIL-B Q1H PRN Congestion Trazodone HCl 50 mg 12/13/20 04:09 Trazodone Hcl 50 Mg Tablet PO BEDTIME PRN Insomnia Valacyclovir HCl 1,000 mg 12/13/20 09:00 12/15/20 08:34 Valacycyclovir Hcl 1,000 Mg Tablet PO 1,000 mg BID TEJA Administration Labs CBC & Chem 7: 12/14/20 05:44 12/14/20 05:44 Microbiology Microbiology Results: Microbiology 12/12/20 22:01 Blood - Arterial Blood Culture - Preliminary No growth after 48 hours. 12/12/20 21:54 Blood - Arterial Blood Culture - Preliminary No growth after 48 hours. Assessment and Plan (1) COPD exacerbation: Status: Acute (2) Leukocytosis: Status: Acute (3) Tobacco use: Status: Acute (4) Bipolar disorder: Status: Acute (5) Borderline personality disorder: Status: Acute Assessment and Plan: This is a 50-year-old female with past medical history of COPD who presents to the hospital with cough, sputum production, and shortness of breath. Patient will be admitted for management of COPD exacerbation COPD exacerbation improvin slowly COVID PCR negative continue Solu-Medrol IV 40 b.i.d. DuoNeb p.r.n. and scheduled continue azithromycin Cough medications follow respiratory status, consider Pulm eval leukocytosis secondary to COPD exacerbation on azithromycin follow CBC tobacco use disorder interested in quitting at this time NRT bipolar disorder continue lithium, and Seroquel borderline personality disorder Seroquel, trazodone and prazosin DVT prophylaxis Heparin subQ
[2020-12-15] MEDS: Prazosin HCL 1 MG CAPSULE PO (20:41)
[2020-12-16] VITALS: BP 133/75; PULSE 84; RESP 17; TEMP 36.8; O2SAT 94
[2020-12-16] MEDS: Azithromycin 500 MG TABLET PO (03:35)
[2020-12-16] MEDS: Heparin Sodium,Porcine 5,000 UNIT/ML VIAL 5000 UNIT SUBCUT (03:35)
[2020-12-16 03:44] VITALS: BP 132/68; PULSE 71; RESP 17; TEMP 36.7; O2SAT 92
[2020-12-16] MEDS: guaiFEN/Codeine SF 200/20/10ML 10 ML LIQUID PO (05:08)
[2020-12-16 07:13] VITALS: BP 143/76; PULSE 76; RESP 19; TEMP 36.2; O2SAT 94
[2020-12-16] MEDS: Albuterol/Iprat 2.5/0.5MG 3 ML AMPUL.NEB INHALE ×2 (07:24→11:13)
[2020-12-16 07:25] VITALS: PULSE 84; O2SAT 97
[2020-12-16] MEDS: Nicotine 7 MG PATCH.TD24 TRANSDERMA (08:54)
[2020-12-16] MEDS: Benzonatate 100 MG CAPSULE 200 MG PO (08:54)
[2020-12-16] MEDS: Sertraline HCL 100 MG TABLET PO (08:54)
[2020-12-16] MEDS: 0.9 % Sodium Chloride Flush 3 ML SYRINGE IVFLUSH (08:55)
[2020-12-16] MEDS: guaiFENesin DM 600/30 1 TAB TAB.ER.12H PO (08:55)
[2020-12-16] MEDS: Lithium Carbonate ER 300 MG TABLET.ER PO (08:55)
[2020-12-16] MEDS: Omeprazole 20 MG CAPSULE.DR PO (08:55)
[2020-12-16 11:10] VITALS: BP 130/61; PULSE 94; RESP 18; TEMP 36.7; O2SAT 98
[2020-12-16 11:14] VITALS: PULSE 80; O2SAT 97
[2020-12-16] MEDS: predniSONE 20 MG TABLET 40 MG PO (11:17)
--- NOTE | 2020-12-16 12:05 | PM.DS ---
DS: Providers Provider Date of Service: 12/16/20 Date of admission: 12/13/20 03:34 Primary care physician: Unknown Physician DS: Diagnosis Discharge Diagnosis (1) COPD exacerbation: Status: Acute (2) Leukocytosis: Status: Acute (3) Tobacco use: Status: Acute (4) Bipolar disorder: Status: Acute (5) Borderline personality disorder: Status: Acute DS: Medications Discharge Medications Home Medications: Home Medications Medication Instructions Recorded Confirmed acetaminophen 500 mg PO TID PRN 10/08/20 12/12/20 omeprazole 20 mg PO DAILY 10/08/20 12/12/20 lithium carbonate 300 mg PO BID 11/27/20 12/12/20 prazosin 1 mg PO BEDTIME 12/11/20 12/12/20 quetiapine 50 mg PO DAILY PRN 12/11/20 12/12/20 quetiapine [Seroquel] 50 mg PO BEDTIME PRN 12/11/20 12/12/20 sertraline 100 mg PO DAILY 12/11/20 12/12/20 valacyclovir [Valtrex] 1,000 mg PO BID 12/11/20 12/12/20 Previous Rx's Medication Instructions Recorded trazodone 50 mg PO BEDTIME PRN #15 tab 10/15/20 albuterol sulfate 2 puff INHALATION QID PRN #1 g 11/29/20 nicotine [Nicoderm CQ] 1 patch TRANSDERMAL Q24H #14 ea 11/29/20 fluticasone propion-salmeterol 1 inh INHALATION BID 30 Days ea 12/16/20 [AirDuo RespiClick] ipratropium-albuterol 3 ml INHALATION Q4-6H #90 ea 12/16/20 nebulizers #1 ea 12/16/20 nicotine 7 mg TRANSDERMAL DAILY #30 ea 12/16/20 prednisone 40 mg PO DAILY #2 tab 12/16/20 DS: Summary Hospital Course Hospital Course: Admission note HPI This is a 50-year-old female with past medical history of COPD, bipolar disorder and borderline personality disorder presents to the hospital with complaints of shortness of breath. Patient reports that her shortness of breath started yesterday, associated cough, sputum production, wheezing. No fever or chills. Patient has chest wall pain as a result of the coughing but no abdominal pain nausea or vomiting, no diarrhea constipation. No urinary symptoms and no lower extremity edema. She reports that 1 of her friend's daughter's was sick but not with COVID, she has not had any recent sick contacts otherwise and no recent travel. On arrival to the hospital patient vital significant for temperature of 101.9?, heart rate of 113, respiratory rate of 25, satting 93 care. Labs are significant for WBC count 14.6, otherwise unremarkable. Chest x-ray negative for any significant abnormality Hospital course The patient was admitted to the hospital and treated with IV steroids, oxygen supplement and bronchodilator nebulizers with azithromycin with good response over the course of hospital stay as she was weaned off the oxygen and her lungs became clear to auscultate. She was able to ambulate on room air with no reported dyspnea. To be discharged on prednisone and her home inhalers to prescribe her nebulizers machine Advised to quit smoking completely and an an RT was prescribed Time spent discussing smoking cessation with patient: more than 10 minutes Time Spent with Patient Time attestation: Total time spent providing and/or coordinating discharge services: Discharge coordination time: Greater than 30 minutes Physical Exam Vital Signs: Vital Signs: Last Vital Signs Temp 98.1 F 12/16/20 11:10 Pulse 80 12/16/20 11:14 Resp 18 12/16/20 11:10 BP 130/61 12/16/20 11:10 Pulse Ox 98 12/16/20 11:10 Body Mass Index 38.7 Const: Other: Constitutional : Alert, oriented, not in distress Neck : Normal inspection, Supple Cardiovascular : RRR, S1 S2, no lower extremity edema Respiratory : Good bilateral air entry, no crackles, wheezes or rhonchi Gastrointestinal: soft, lax, Normal bowel sounds, Non tender Skin : Warm/Dry, No rash Neurological : Alert & oriented x3, No focal deficit DS: Data Data Completed and Pending Labs on day of discharge: Preliminary micro results at discharge 12/12/20 22:01 Blood Culture - Preliminary Blood - Arterial No growth after 48 hours. 12/12/20 21:54 Blood Culture - Preliminary Blood - Arterial No growth after 48 hours. Discharge Plan Discharge Patient Disposition: Home, Self-Care Referrals: Physician,Unknown [Primary Care Provider] - 1 Week (Please call your insurance and list a primary care provider then call the office and schedule a new patient appointment.) Discharge Medications: New ipratropium-albuterol 0.5 mg-3 mg(2.5 mg base)/3 mL Solution For Nebulization 3 ml inhalation Q4-6H Qty: 90 RF: 1 prednisone 20 mg Tablet 40 mg PO DAILY Qty: 2 RF: 0 (DME) nebulizers Misc See Rx Instructions .ROUTE .MEDSUPPLY Qty: 1 RF: 0 nicotine 7 mg/24 hr Patch 24 Hour 7 mg transdermal DAILY Qty: 30 RF: 1 Continued acetaminophen 500 mg Tablet 500 mg PO TID PRN (Reason: Pain) RF: 0 omeprazole 20 mg Capsule,Delayed Release(Dr/Ec) 20 mg PO DAILY RF: 0 trazodone 50 mg Tablet 50 mg PO BEDTIME PRN (Reason: Insomnia) Qty: 15 RF: 1 valacyclovir [Valtrex] 1 gram Tablet 1,000 mg PO BID RF: 0 prazosin 1 mg Capsule 1 mg PO BEDTIME RF: 0 sertraline 100 mg Tablet 100 mg PO DAILY RF: 0 quetiapine 50 mg Tablet 50 mg PO DAILY PRN (Reason: Agitation) RF: 0 quetiapine [Seroquel] 50 mg tablet 50 mg PO BEDTIME PRN (Reason: Insomnia) RF: 0 fluticasone propion-salmeterol [AirDuo RespiClick] 232-14 mcg/actuation Aerosol Powdr Breath Activated 1 inh INHALATION BID 30 Days RF: 0 lithium carbonate 300 mg Tablet Extended Release 300 mg PO BID RF: 0 albuterol sulfate 90 mcg/actuation Hfa Aerosol Inhaler 2 puff INHALATION QID PRN (Reason: Shortness Of Breath Or Wheezing) Qty: 1 RF: 0 nicotine [Nicoderm CQ] 7 mg/24 hr patch 24 hour 1 patch transdermal Q24H Qty: 14 RF: 0 Discharge Orders: Discharge Order (Routine); Ordered 12/16/20 Ordered By: Lisa Herman Diet: advance to usual diet Activity on Discharge: As tolerated Stand Alone Forms: Patient Portal Discharge page Visit Report Forms: Patient Portal Discharge page Care Plan Goals: See below Health Concerns: See below Plan of Treatment: You were admitted to the hospital for treatment of COPD exacerbation. Responded well to bronchodilators, steroid, oxygen supplement antibiotic over the course of hospital stay. continue prednisone as prescribed continue your home inhalers The to use nebulizers as needed Avoid smoking, nicotine patches prescribed
--- NOTE | 2020-12-16 12:07 | MHC.CM.PN ---
pt dcd home no servceis ordered by
--- NOTE | 2020-12-16 15:16 | MHC.CARE ---
CARE Team checked in with patient in room [address] [facility] who was sitting in a chair in her room, alert, oriented and pleasant, was fully dressed and waiting to be discharged. She said although she is not sure where she will be staying tonight, she has resources and will be safe. Patient is not in crisis, stated [facility] however, the process is lengthy and starts a clinical assessment?she is not willing to stay for an interview with CARE or N. Today patient plans to go to the [facility] where she spends several days a week and gets support, including rides. She was encouraged to call or go to the [facility] office if she decides to start the respite referral process. CM will arrange transportation via [employer] shuttle. Provider updated.
== END 2020-12-16 13:36 | disposition home or self-care (01) | DRG 140 ==
LOC: HO.ED 12-13 01:11 → HO.IMC 12-13 04:32
PROVIDERS: Admitting Provider Internal Medicine; Emergency Provider Emergency Medicine; Visit Provider Student in an Organized Health Care Education/Training Program
DX: J44.1 Chronic obstructive pulmonary disease with (acute) exacerbation (principal); D72.829 Elevated white blood cell count, unspecified; F17.210 Nicotine dependence, cigarettes, uncomplicated; F31.9 Bipolar disorder, unspecified; F60.3 Borderline personality disorder; Z71.6 Tobacco abuse counseling; Z20.822 Contact with and (suspected) exposure to COVID-19; Z88.0 Allergy status to penicillin; Z88.2 Allergy status to sulfonamides; Z88.5 Allergy status to narcotic agent; Z79.51 Long term (current) use of inhaled steroids; Z79.899 Other long term (current) drug therapy
CPT/HCPCS: 0241U; 11104; 36415; 71045; 80048; 80076; 81003; 81025; 83605; 83690; 83880; 84484; 85025; 85027; 87040; 93005; 94640; 94644; 96365; 96366; 96367; 96375; 99285; J1956; J2920; J2930; J3475

== ENCOUNTER 2020-12-23 15:59 | Inpatient (IN) | payer OTHER, SELFPAY ==
[2020-12-23 16:14] VITALS: BP 140/83; PULSE 95; RESP 18; TEMP 36.4; O2SAT 96; BMI 32.3
--- NOTE | 2020-12-23 17:31 | ED_ITS ---
HPI - Psych General Chief Complaint: Psychiatric Symptoms Stated Complaint: SI Time Seen by Provider: 12/23/20 16:17 History of Present Illness HPI Narrative: Patient presents to ED for suicidal ideation with no plan. Patient states she is homeless and feels depressed. Patient admits not taking her psych meds. Related Data Home Medications Medication Instructions Recorded Confirmed acetaminophen 500 mg PO TID PRN 10/08/20 12/12/20 omeprazole 20 mg PO DAILY 10/08/20 12/12/20 lithium carbonate 300 mg PO BID 11/27/20 12/12/20 prazosin 1 mg PO BEDTIME 12/11/20 12/12/20 quetiapine 50 mg PO DAILY PRN 12/11/20 12/12/20 quetiapine [Seroquel] 50 mg PO BEDTIME PRN 12/11/20 12/12/20 sertraline 100 mg PO DAILY 12/11/20 12/12/20 valacyclovir [Valtrex] 1,000 mg PO BID 12/11/20 12/12/20 Previous Rx's Medication Instructions Recorded trazodone 50 mg PO BEDTIME PRN #15 tab 10/15/20 albuterol sulfate 2 puff INHALATION QID PRN #1 g 11/29/20 nicotine [Nicoderm CQ] 1 patch TRANSDERMAL Q24H #14 ea 11/29/20 fluticasone propion-salmeterol 1 inh INHALATION BID 30 Days ea 12/16/20 [AirDuo RespiClick] ipratropium-albuterol 3 ml INHALATION Q4-6H #90 ea 12/16/20 nebulizers #1 ea 12/16/20 nicotine 7 mg TRANSDERMAL DAILY #30 ea 12/16/20 prednisone 40 mg PO DAILY #2 tab 12/16/20 Allergies Allergy/AdvReac Type Severity Reaction Status Date / Time aspirin [Aspirin] Allergy Severe HIVES,THROAT Verified 12/12/20 20:36 SWELLS bee pollen [BEE STINGS] Allergy Severe ANAPHYLAXIS Verified 12/12/20 20:36 diphenhydramine Allergy Severe hives, Verified 12/12/20 20:36 [From BENADRYL ALLERGY] throat swells Penicillins [PCN] Allergy Severe HIVES Verified 12/12/20 20:36 THROAT SWELLS Sulfa (Sulfonamide Allergy Intermediate HIVES Verified 12/12/20 20:36 Antibiotics) [SULFA (SULFONAMIDE ANTIBIOTICS)] tramadol [TRAMADOL] Allergy Intermediate ITCHING Verified 12/12/20 20:36 latex [LATEX] Allergy Unknown UNKNOWN Verified 12/12/20 20:36 penicillin G Allergy Unknown Unknown Verified 12/12/20 20:36 levofloxacin [From Levaquin] Allergy Hives Verified 12/13/20 04:57 bee stings Allergy Unknown Unknown Uncoded 12/12/20 20:36 DairyCare Allergy Unknown Unknown Uncoded 12/12/20 20:36 sulfa drugs Allergy Unknown Unknown Uncoded 12/12/20 20:36 Review of Systems Review of Systems: Yes all other systems are reviewed and are negative Constitutional: Constitutional: Reports as per HPI and Reports no additional constitutional complaints Eyes: Eyes: Reports as per HPI and Reports no additional eye complaints ENT: Reports system reviewed and no additional complaints, except as documented and Reports as per HPI Cardiovascular: Cardiovascular: Reports as per HPI and Reports no additional c ardiovascular complaints Respiratory: Respiratory: Reports as per HPI and Reports no additional re spiratory complaints Gastrointestinal: Gastrointestinal: Reports as per HPI and Reports no additio nal gastrointestinal complaints Genitourinary: Genitourinary: Reports no additional female genitourinary complaints and Reports as per HPI Musculoskeletal: Musculoskeletal: Reports no additional musculoskeletal complaints and Reports as per HPI Neurologic: Reports system reviewed and no additional complaints, except as documented and Reports as per HPI Psychiatric: Psychiatric: Reports no additional psychiatric complaints and Reports as per HPI Comments: SI with no plan PMFSH Past Medical History Medical History Bipolar disorder Borderline personality disorder COPD (chronic obstructive pulmonary disease) Depression Tobacco use Surgical History History of ankle surgery History of appendectomy History of back surgery Hx of cholecystectomy Family History Family History Mother COPD (chronic obstructive pulmonary disease) Social History Social History Household Members: Friend(s) Housing: Homeless Alcohol intake: unknown Smoking Status: Unknown if ever smoked Tobacco Type: Cigarette Packs Per Day: 0 Cigarettes Per Day: 4 Years Smoked: 36 Second Hand Smoke Exposure: Yes Use of substances other than those prescribed or required for medical reasons: Unknown Substance Use Type: Crack/Cocaine Advance Directives: No Advance Directives Information Provided: No service: No Current occupational status: unemployed Physical Exam Vital Signs: Vital Signs: Last Vital Signs Temp 97.6 F 12/23/20 16:14 Pulse 80 12/23/20 19:58 Resp 15 12/23/20 19:58 BP 125/73 12/23/20 19:58 Pulse Ox 96 12/23/20 19:58 Body Mass Index 32.3 Const: General: cooperative, healthy appearing, comfortable, no acute distress, well developed, alert and awake; No Physically active Orientation/consciousness: patient oriented x3 HENMT: Head: Yes normal to inspection, Yes No palpable skull fracture present, Yes normocephalic, Yes atraumatic, Yes abrasion, No Acrocyanosis present, No Garrett's sign, No contusion, No cranial bruits, No hematoma, No laceration, No occipital foramen tenderness, No palpable skull fracture, No raccoon eyes, No scalp tenderness, No Temporal artery tenderness present and No periorbital ecchymosis Eyes: General: appearance normal, both eyes and all related structures Neck: Neck: Yes normal visual inspection, Yes full ROM, Yes no meningeal signs, Yes trachea midline, Yes supple and No tender Chest: Chest palpation & inspection: normal inspection of the chest and normal palpation of entire chest wall Resp: Effort & Inspection: normal respiratory effort and able to speak in complete sentences Auscultation: clear to auscultation bilaterally Cardio: Jugular venous distension: no JVD Heart sounds: S1 normal heart sound present and S2 normal heart sound present GI: Inspection: Yes normal to inspection and No abdominal wall ecchymosis Palpation (GI): Soft to palpation, not firm, nontender, no guarding and not rigid : General: Yes no CVA tenderness Back/Spine/Pelvis: Back: no CVA tenderness, No CVA tenderness and No back tenderness Skin: General skin exam: no rashes or lesions noted and elasticity normal Neuro: General: patient oriented x3, no meningeal signs and CN's II-XI intact bilaterally Cranial nerves: Yes CN's II-XII intact bilaterally Extrem: General: Yes normal to inspection and Yes full ROM Psych: Other: Patient SI with no plan. Appearance: grossly normal, well kempt and not disheveled Course Course Course Narrative: Patient had normal labs on the 14 of December. Patient will decide of U tox and awaiting behavior Health evaluation Reevaluation(s) Reevaluation #1: Patient had repeat labs ordered as instructed by nurse for [facility] evaluate patient. Patient awaiting behavior [facility] evaluation. Patient not in any distress Time: 21:09 Reevaluation #2: Case signed out to MARSHALL Mancilla. Time: 21:18 MDM - Psych Lab Data Result diagrams: 12/23/20 19:34 12/23/20 19:34 Labs: Lab Results 12/23/20 12/23/20 12/23/20 Range/Units 16:49 19:34 19:34 WBC 12.7 H (4.8-10.8) X10*3/uL RBC 4.13 L (4.20-5.50) X10*6/uL Hgb 12.5 (12.0-16.0) g/dl Hct 38.5 (37-47) % MCV 93.2 (80-98) fL MCH 30.3 (27.0-33.0) pg MCHC 32.5 (31.0-35.0) g/dl RDW 13.0 (11.0-16.0) % Plt Count 281 (160-400) X10*3/uL MPV 9.4 (9.4-12.3) fL Immature Gran % (Auto) 0.6 H (0.0-0.4) % Neut % (Auto) 59.8 (45-73) % Lymph % (Auto) 33.0 (20-40) % [place] % (Auto) 5.1 (2-11) % Eos % (Auto) 1.0 (0-4) % Baso % (Auto) 0.5 (0-2) % Lymph # (Auto) 4.2 (1.2-4.9) X10*3/uL [place] # (Auto) 0.7 (0.1-1.2) X10*3/uL Eos # (Auto) 0.1 (0.0-0.4) X10*3/uL Baso # (Auto) 0.1 (0.0-0.2) X10*3/uL Abs Immat Gran (auto) 0.08 H (0.00-0.03) X10*3/uL Absolute Neuts (auto) 7.6 (2.0-8.3) X10*3/uL Absolute Nucleated RBC 0.000 (0.0-0.012) X10*3/uL Nucleated RBC % (auto) 0.0 (0.0-0.2) /100WBC Sodium 141 (135-145) mmol/L Potassium 4.2 (3.3-5.1) mmol/L Chloride 104 (96-108) mmol/L Carbon Dioxide 28 (22-29) mmol/L Anion Gap 13 (12-20) BUN 18 H (9-16) mg/dL Creatinine 0.69 (0.5-1.4) mg/dL Estim Creat Clear Calc 111.9 Estimated GFR > 60 Random Glucose 90 (60-115) mg/dL Calcium 9.0 (8.4-10.2) mg/dL Total Bilirubin < 0.2 (0.0-1.0) mg/dL Direct Bilirubin < 0.2 (0.0-0.5) mg/dL AST 11 (5-31) U/L ALT 16 (0-31) U/L Alkaline Phosphatase 72 (39-117) U/L Total Protein 6.2 L (6.5-8.0) g/dL Albumin 4.1 (3.5-5.0) g/dL Urine Opiates Screen Not Detected (Not Detect) Ur Barbiturates Screen Not Detected (Not Detect) Ur Phencyclidine Scrn Not Detected (Not Detect) Ur Amphetamines Screen Not Detected (Not Detect) U Benzodiazepines Scrn Not Detected (Not Detect) Urine Cocaine Screen Not Detected (Not Detect) U Marijuana (THC) Screen Not Detected (Not Detect) Ethyl Alcohol mg/dL 12/23/20 Range/Units 19:34 WBC (4.8-10.8) X10*3/uL RBC (4.20-5.50) X10*6/uL Hgb (12.0-16.0) g/dl Hct (37-47) % MCV (80-98) fL MCH (27.0-33.0) pg MCHC (31.0-35.0) g/dl RDW (11.0-16.0) % Plt Count (160-400) X10*3/uL MPV (9.4-12.3) fL Immature Gran % (Auto) (0.0-0.4) % Neut % (Auto) (45-73) % Lymph % (Auto) (20-40) % [place] % (Auto) (2-11) % Eos % (Auto) (0-4) % Baso % (Auto) (0-2) % Lymph # (Auto) (1.2-4.9) X10*3/uL [place] # (Auto) (0.1-1.2) X10*3/uL Eos # (Auto) (0.0-0.4) X10*3/uL Baso # (Auto) (0.0-0.2) X10*3/uL Abs Immat Gran (auto) (0.00-0.03) X10*3/uL Absolute Neuts (auto) (2.0-8.3) X10*3/uL Absolute Nucleated RBC (0.0-0.012) X10*3/uL Nucleated RBC % (auto) (0.0-0.2) /100WBC Sodium (135-145) mmol/L Potassium (3.3-5.1) mmol/L Chloride (96-108) mmol/L Carbon Dioxide (22-29) mmol/L Anion Gap (12-20) BUN (9-16) mg/dL Creatinine (0.5-1.4) mg/dL Estim Creat Clear Calc Estimated GFR Random Glucose (60-115) mg/dL Calcium (8.4-10.2) mg/dL Total Bilirubin (0.0-1.0) mg/dL Direct Bilirubin (0.0-0.5) mg/dL AST (5-31) U/L ALT (0-31) U/L Alkaline Phosphatase (39-117) U/L Total Protein (6.5-8.0) g/dL Albumin (3.5-5.0) g/dL Urine Opiates Screen (Not Detect) Ur Barbiturates Screen (Not Detect) Ur Phencyclidine Scrn (Not Detect) Ur Amphetamines Screen (Not Detect) U Benzodiazepines Scrn (Not Detect) Urine Cocaine Screen (Not Detect) U Marijuana (THC) Screen (Not Detect) Ethyl Alcohol < 10 mg/dL Discharge Plan Discharge Prescriptions: No Action acetaminophen 500 mg Tablet 500 mg PO TID PRN (Reason: Pain) RF: 0 omeprazole 20 mg Capsule,Delayed Release(Dr/Ec) 20 mg PO DAILY RF: 0 trazodone 50 mg Tablet 50 mg PO BEDTIME PRN (Reason: Insomnia) Qty: 15 RF: 1 valacyclovir [Valtrex] 1 gram Tablet 1,000 mg PO BID RF: 0 prazosin 1 mg Capsule 1 mg PO BEDTIME RF: 0 sertraline 100 mg Tablet 100 mg PO DAILY RF: 0 quetiapine 50 mg Tablet 50 mg PO DAILY PRN (Reason: Agitation) RF: 0 quetiapine [Seroquel] 50 mg tablet 50 mg PO BEDTIME PRN (Reason: Insomnia) RF: 0 ipratropium-albuterol 0.5 mg-3 mg(2.5 mg base)/3 mL Solution For Nebulization 3 ml inhalation Q4-6H Qty: 90 RF: 1 prednisone 20 mg Tablet 40 mg PO DAILY Qty: 2 RF: 0 (DME) nebulizers Misc See Rx Instructions .ROUTE .MEDSUPPLY Qty: 1 RF: 0 fluticasone propion-salmeterol [AirDuo RespiClick] 232-14 mcg/actuation Aerosol Powdr Breath Activated 1 inh INHALATION BID 30 Days RF: 0 nicotine 7 mg/24 hr Patch 24 Hour 7 mg transdermal DAILY Qty: 30 RF: 1 lithium carbonate 300 mg Tablet Extended Release 300 mg PO BID RF: 0 albuterol sulfate 90 mcg/actuation Hfa Aerosol Inhaler 2 puff INHALATION QID PRN (Reason: Shortness Of Breath Or Wheezing) Qty: 1 RF: 0 nicotine [Nicoderm CQ] 7 mg/24 hr patch 24 hour 1 patch transdermal Q24H Qty: 14 RF: 0
[2020-12-23 17:35] LABS: Amphetamine Screen Urine Not Detected (Not Detect); Barbiturates, Urine Not Detected (Not Detect); Benzodiazepines Screen Urine Not Detected (Not Detect); Cannabinoid Screen Urine Not Detected (Not Detect); Cocaine Screen Urine Not Detected (Not Detect); Opiate Screen Urine Not Detected (Not Detect); Phencyclidine Screen Urine Not Detected (Not Detect)
[2020-12-23] MEDS: Acetaminophen 325 MG TABLET 650 MG PO (18:41)
[2020-12-23 19:38] LABS: MANUAL DIFF FLAG NO
[2020-12-23 19:39] LABS: Basophils Absolute Auto 0.1 X10*3/uL (0.0-0.2); Basophils Percent Auto 0.5 % (0-2); Eosinophils Absolute Auto 0.1 X10*3/uL (0.0-0.4); Hematocrit 38.5 % (37-47); Hemoglobin 12.5 g/dl (12.0-16.0); Imm Gran Abs Auto 0.08 X10*3/uL (0.00-0.03); Imm Gran Pct Auto 0.6 % (0.0-0.4); Lymphocytes Absolute Auto 4.2 X10*3/uL (1.2-4.9); Mean Corpuscular HGB Conc 32.5 g/dl (31.0-35.0); Mean Corpuscular Hemoglobin 30.3 pg (27.0-33.0); Mean Corpuscular Volume 93.2 fL (80-98); Mean Platelet Volume 9.4 fL (9.4-12.3); Monocytes Absolute Auto 0.7 X10*3/uL (0.1-1.2); Monocytes Percent Auto 5.1 % (2-11); Neutrophils Absolute Auto 7.6 X10*3/uL (2.0-8.3); Neutrophils Percent Auto 59.8 % (45-73); Platelet Count 281 X10*3/uL (160-400); Red Blood Count 4.13 X10*6/uL (4.20-5.50); White Blood Count 12.7 X10*3/uL (4.8-10.8)
[2020-12-23 19:58] VITALS: BP 125/73; PULSE 80; RESP 15; O2SAT 96
[2020-12-23 19:58] LABS: Ethanol < 10 mg/dL
[2020-12-23 20:03] LABS: Alanine Aminotransferase 16 U/L (0-31); Albumin Level 4.1 g/dL (3.5-5.0); Alkaline Phosphatase 72 U/L (39-117); Anion Gap 13 (12-20); Aspartate Amino Transferase 11 U/L (5-31); Bilirubin Direct < 0.2 mg/dL (0.0-0.5); Bilirubin Total < 0.2 mg/dL (0.0-1.0); Blood Urea Nitrogen 18 mg/dL (9-16); Carbon Dioxide 28 mmol/L (22-29); Chloride 104 mmol/L (96-108); Creatinine Clr Calc Pharmacy 111.9; Estimated Glomerular Filt Rate > 60; Glucose Random 90 mg/dL (60-115); Potassium 4.2 mmol/L (3.3-5.1); Sodium 141 mmol/L (135-145); Total Protein 6.2 g/dL (6.5-8.0)
[2020-12-23 23:56] VITALS: BP 138/83; PULSE 79; RESP 15; TEMP 36.6; O2SAT 99
[2020-12-24 00:43] LABS: Glucose Urine UA NEG (NEG); Leukocyte Esterase Urine NEG (NEG); Nitrite Urine NEG (NEG); Specific Gravity - Urine 1.025 (1.005-1.025); Urine Blood NEG (NEG); Urine Ketones NEG (NEG); Urine Protein NEG (NEG-TRACE)
[2020-12-24 00:45] LABS: Appearance Urine CLEAR; Color Urine YELLOW
[2020-12-24 02:00] VITALS: RESP 16
[2020-12-24 05:47] VITALS: RESP 14
[2020-12-24] MEDS: Lithium Carbonate ER 300 MG TABLET.ER PO ×2 (12:02→20:41)
[2020-12-24] MEDS: Sertraline HCL 100 MG TABLET PO (12:02)
[2020-12-24] MEDS: LORazepam 1 MG TABLET 2 MG PO (12:02)
[2020-12-24] MEDS: Nicotine 7 MG PATCH.TD24 TRANSDERMA (12:15)
[2020-12-24 14:08] LABS: COVID-19 Test Negative (Negative)
[2020-12-24 14:52] VITALS: BP 106/60; PULSE 85; RESP 16; TEMP 37; O2SAT 93
[2020-12-24] MEDS: Loperamide HCl 2 MG CAPSULE PO (15:35)
--- NOTE | 2020-12-24 15:43 | PC.NURSE ---
Pt requested and given prn for diarrhea. Pt also requested and given coloring pages, snack. calm and cooperative at this time.
[2020-12-24 16:50] VITALS: BP 111/60; BP 112/58; PULSE 71; PULSE 76
[2020-12-24 16:51] VITALS: BP 114/67; PULSE 85
--- NOTE | 2020-12-24 16:53 | PC.NURSE ---
Pt c/o dizziness. Orthos taken as documented. Reported to provider. Pt appears sleepy with no signs of distress.
--- NOTE | 2020-12-24 19:12 | PC.NURSE ---
Samy Villarreal from CARE team- pt to be admitted to M5 before midnight
[2020-12-24] MEDS: Cyclobenzaprine HCl 5 MG TABLET PO (20:41)
[2020-12-24 21:41] LABS: Lithium 0.14 mmol/L (0.60-1.20)
--- NOTE | 2020-12-24 21:47 | PC.NURSE ---
X 1 attempt to give report to M5, awaiting call back
--- NOTE | 2020-12-24 22:02 | PC.NURSE ---
Report given to Shreya on M5
--- NOTE | 2020-12-25 03:04 | PC.ADMIT ---
Pt is a 50 yo single female admitted to at 22:15 after signing a CV with dx of bipolar, current episode depressed, and borderline personality disorder. Presented to [facility] ED on 12/23/20 via ambulance secondary to SI with plan/intent to jump off a bridge. Experienced persistent thoughts of SI and non-med compliance for past 4-5 days. Pt has extensive hx of IPL for mental health and substance abuse. Admitted to [facility] medical unit on 11/15/20 for intentional Tylenol OD. Currently homeless with [employer] benefits as income. PMH of COPD, herpes, ankle sx, back, sx, cholecystectomy, appendectomy, and heart murmur. COVID negative. 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 Hx aggressive behavior and medication restraint. Current daily smoker. Pt admitted on previous shift and asleep at time of admission assessment. On-call provider notified and orders acknowledged. Oriented to unit on previous shift. Placed on 5 min safety checks.
[2020-12-25 05:30] VITALS: BP 114/74; PULSE 78; RESP 16; TEMP 36.6; O2SAT 94
[2020-12-25] MEDS: Lithium Carbonate ER 300 MG TABLET.ER PO ×2 (08:36→20:52)
[2020-12-25] MEDS: Nicotine 7 MG PATCH.TD24 TRANSDERMA (08:36)
[2020-12-25] MEDS: Sertraline HCL 100 MG TABLET PO (08:37)
[2020-12-25 18:25] VITALS: BP 122/86; PULSE 75; TEMP 36.8
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
[2020-12-25] MEDS: QUEtiapine Fumarate 50 MG TABLET PO (20:51)
[2020-12-25] MEDS: traZODone HCL 50 MG TABLET PO (20:52)
[2020-12-26 06:30] VITALS: BP 104/56; PULSE 66; RESP 18; TEMP 36.4; O2SAT 95
[2020-12-26] MEDS: Lithium Carbonate ER 300 MG TABLET.ER PO ×2 (08:57→21:05)
[2020-12-26] MEDS: Nicotine 7 MG PATCH.TD24 TRANSDERMA (08:59)
[2020-12-26] MEDS: Sertraline HCL 100 MG TABLET PO (09:00)
[2020-12-26 09:04] LABS: Cholesterol 218 mg/dL; HDL Cholesterol 57 mg/dL; LDL Cholesterol Calculated 118 mg/dl; Triglycerides 215 mg/dL
[2020-12-26 09:30] LABS: Vitamin D 25-OH Total 13.9 ng/mL (>30)
[2020-12-26 09:56] LABS: Vitamin B12 428 pg/mL (200-900)
[2020-12-26] MEDS: Omeprazole 20 MG CAPSULE.DR PO (09:57)
[2020-12-26] MEDS: Ferrous Sulfate 324 MG TABLET.DR PO (13:51)
[2020-12-26 16:48] VITALS: BP 107/64; PULSE 86; RESP 18; TEMP 36.7; O2SAT 94
--- NOTE | 2020-12-26 18:37 | P.PNPSI_ITS ---
Subjective Subjective Date of Service: 12/26/20 Reason For Visit: Mood swings Subjective Notes: Conditional Voluntary Interim History: Reports feeling improved. Discussed med regime and changes. Reports right abdominal pain-c/o constipation. Colace, Metamucil ordered. If pain persists may need to meet with hospitalist. Planning discharge next week as we are establishing regime that has been effective for her in the past. Medication Compliance: Yes Side effects from medications: No Attending Groups: Yes Review of Systems Gastrointestinal: Reports constipation Mental Status Exam Mental Status Exam Patient Appearance: Appropriate Patient Orientation: Person, Place, Time and Situation Level of Consciousness: Awake and Alert Patient Behavior: Appropriate Mood Description: Constricted Affect Description: Constricted Patient Cognition Impaired: No Ability to Follow Directions: Good Speech Pattern: Clear, Appropriate and Spontaneous Speech Memory Description: Intact Hallucinations: None Delusions: Not Present Thought Process: Intact Thought Content: positive for Intact and positive for Suicidal Ideation (denies current SI plan or intent) Depressive Symptoms: Increased Anxiety, Increased Irritability, Feelings of Guilt and Thoughts of /Suicide (denies SI plan or intent) Judgement: Fair Diagnostics Vital Signs (24Hr): Vital Signs - 24 hr 12/26/20 06:30 12/26/20 16:48 Temperature 97.6 F 98.0 F Pulse Rate 66 86 Respiratory Rate 18 18 Blood Pressure 104/56 L 107/64 Pulse Oximetry 95 94 Body Mass Index 32.3 Labs Results: 12/23/20 19:34 12/23/20 19:34 Labs: Laboratory Results - last 48 hr 12/24/20 12/26/20 12/26/20 21:07 07:57 07:57 Triglycerides 215 Cholesterol 218 LDL Cholesterol, Calc 118 HDL Cholesterol 57 Vitamin B12 428 25-OH Vitamin D Total 13.9 Folate 7.0 TSH 1.20 [place] 0.14 L Medications Medications Current Medications Generic Name Dose Route Start Last Admin Trade Name Freq PRN Reason Stop Dose Admin Acetaminophen 650 mg 12/24/20 21:27 Acetaminophen 325 Mg Tablet PO Q6H PRN Headache/Pain Mild Scale (1-3) Al Hydroxide/Mg Hydroxide 30 ml 12/24/20 21:27 Magnesium Hydrox/Alum Hydrox 30 Ml Oral.Susp PO Q6H PRN Heartburn/Nausea Albuterol Sulfate 2 puff 12/24/20 11:50 Albuterol Sulfate 90 Mcg 8 Gm Inhaler INHALE QID PRN wheezing Albuterol/Ipratropium 3 ml 12/26/20 11:37 Albuterol/Iprat 2.5/0.5mg 3 Ml Ampul.Neb INHALE RQ4H PRN breathing Docusate Sodium 100 mg 12/26/20 21:00 Docusate Sodium 100 Mg Capsule PO BID TEJA Ferrous Sulfate 324 mg 12/26/20 12:00 12/26/20 13:51 Ferrous Sulfate 324 Mg Tablet. PO 324 mg DAILY TEJA Administration Hydroxyzine HCl 25 mg 12/24/20 21:27 Hydroxyzine Hcl 25 Mg Tablet PO BEDTIME PRN Anxiety [place] Carbonate 300 mg 12/24/20 12:00 12/26/20 08:57 [place] Carbonate Er 300 Mg Tablet.Er PO 300 mg BID [facility] Administration Loperamide HCl 2 mg 12/24/20 15:22 12/24/20 15:35 Loperamide Hcl 2 Mg Capsule PO 2 mg Q6H PRN Administration diarrhea Magnesium Hydroxide 30 ml 12/24/20 21:27 Milk Of Magnesia 30 Ml Oral.Susp PO DAILY PRN Constipation Nicotine 7 mg 12/24/20 12:00 12/26/20 08:59 Nicotine 7 Mg Patch.Td24 TRANSDERMA 7 mg DAILY [facility] Administration Omeprazole 20 mg 12/26/20 09:30 12/26/20 09:57 Omeprazole 20 Mg Capsule. PO 20 mg DAILY@0630 [facility] Administration Psyllium Hydrophilic Mucilloid 3.4 gm 12/26/20 11:49 Psyllium Seed 3.4 Gm Powd.Pack PO DAILY PRN Constipation Quetiapine Fumarate 50 mg 12/26/20 21:00 Quetiapine Fumarate 50 Mg Tablet PO BEDTIME TEJA Quetiapine Fumarate 25 mg 12/26/20 11:42 Quetiapine Fumarate 25 Mg Tablet PO ONCE PRN agitation Sertraline HCl 100 mg 12/24/20 12:00 12/26/20 09:00 Sertraline Hcl 100 Mg Tablet PO 100 mg DAILY [facility] Administration Trazodone HCl 50 mg 12/24/20 11:50 12/25/20 20:52 Trazodone Hcl 50 Mg Tablet PO 50 mg BEDTIME PRN Administration Insomnia Trazodone HCl 100 mg 12/26/20 21:00 Trazodone Hcl 100 Mg Tablet PO BEDTIME TEJA Valacyclovir HCl 1,000 mg 12/24/20 12:00 12/26/20 08:57 Valacycyclovir Hcl 1,000 Mg Tablet PO 1,000 mg BID TEJA Administration Allergies Allergies Allergy/AdvReac Type Severity Reaction Status Date / Time aspirin [Aspirin] Allergy Severe HIVES,THROAT Verified 12/12/20 20:36 SWELLS bee pollen [BEE STINGS] Allergy Severe ANAPHYLAXIS Verified 12/12/20 20:36 diphenhydramine Allergy Severe hives, Verified 12/12/20 20:36 [From BENADRYL ALLERGY] throat swells Penicillins [PCN] Allergy Severe HIVES Verified 12/12/20 20:36 THROAT SWELLS Sulfa (Sulfonamide Allergy Intermediate HIVES Verified 12/12/20 20:36 Antibiotics) [SULFA (SULFONAMIDE ANTIBIOTICS)] tramadol [TRAMADOL] Allergy Intermediate ITCHING Verified 12/12/20 20:36 latex [LATEX] Allergy Unknown UNKNOWN Verified 12/12/20 20:36 penicillin G Allergy Unknown Unknown Verified 12/12/20 20:36 levofloxacin [From Levaquin] Allergy Hives Verified 12/13/20 04:57 bee stings Allergy Unknown Unknown Uncoded 12/12/20 20:36 DairyCare Allergy Unknown Unknown Uncoded 12/12/20 20:36 sulfa drugs Allergy Unknown Unknown Uncoded 12/12/20 20:36 Assessment & Plan Assessment & Plan (1) Bipolar disorder, current episode depressed, mild or moderate severity, unspecified: Status: Acute Code(s): F31.30 - Bipolar disorder, current episode depressed, mild or moderate severity, unspecified Assessment and Plan: Continue current plan to re-establish regime. Greater than 50% of the session was spent on counseling and/or coordination of care Reason for contiued inpatient stay Substantial Risk for: harm to self, rapid decompensation and med/psych decompensation
[2020-12-26] MEDS: traZODone HCL 100 MG TABLET PO (21:05)
[2020-12-26] MEDS: QUEtiapine Fumarate 50 MG TABLET PO (21:05)
[2020-12-26] MEDS: Docusate Sodium 100 MG CAPSULE PO (21:05)
[2020-12-27] MEDS: Docusate Sodium 100 MG CAPSULE PO ×2 (09:00→21:33)
[2020-12-27] MEDS: Lithium Carbonate ER 300 MG TABLET.ER PO ×2 (09:00→21:34)
[2020-12-27] MEDS: Cholecalciferol (Vitamin D3) 25 MCG TABLET PO (09:00)
[2020-12-27] MEDS: Ferrous Sulfate 324 MG TABLET.DR PO (09:00)
[2020-12-27] MEDS: Sertraline HCL 100 MG TABLET PO (09:01)
[2020-12-27] MEDS: Omeprazole 20 MG CAPSULE.DR PO (09:01)
[2020-12-27] MEDS: Nicotine 7 MG PATCH.TD24 TRANSDERMA (09:21)
--- NOTE | 2020-12-27 10:24 | P.PNPSI_ITS ---
Subjective Subjective Date of Service: 12/27/20 Reason For Visit: Mood swings Interim History: 12/27: Pleased to be back on meds. No complaints. Pleasant. 12/26:Reports feeling improved. Discussed med regime and changes. Reports right abdominal pain-c/o constipation. Colace, Metamucil ordered. If pain persists may need to meet with hospitalist. Planning discharge next week as we are est ablishing regime that has been effective for her in the past. Review of Systems Review of Systems Yes all other systems are reviewed and are negative Constitutional: Reports as per HPI and Reports no additional constitutional complaints Eyes: Reports as per HPI and Reports no additional eye complaints Reports system reviewed and no additional complaints, except as documented and Reports as per HPI Cardiovascular: Reports as per HPI and Reports no additional cardiovascular complaints Respiratory: Reports as per HPI and Reports no additional respiratory complaints Gastrointestinal: Reports as per HPI, Reports no additional gastrointestinal complaints and Reports constipation Musculoskeletal: Reports no additional musculoskeletal complaints and Reports as per HPI Reports system reviewed and no additional complaints, except as documented and Reports as per HPI Psychiatric: Reports no additional psychiatric complaints and Reports as per HPI Mental Status Exam Mental Status Exam Patient Appearance: Appropriate Patient Orientation: Person, Place, Time and Situation Level of Consciousness: Awake and Alert Patient Behavior: Appropriate Mood Description: Constricted Affect Description: Constricted Patient Cognition Impaired: No Ability to Follow Directions: Good Speech Pattern: Clear, Appropriate and Spontaneous Speech Memory Description: Intact Diagnostics Vital Signs (24Hr): Vital Signs - 24 hr 12/26/20 16:48 Temperature 98.0 F Pulse Rate 86 Respiratory Rate 18 Blood Pressure 107/64 Pulse Oximetry 94 Body Mass Index 32.3 Labs Results: 12/23/20 19:34 12/23/20 19:34 Labs: Laboratory Results - last 48 hr 12/26/20 12/26/20 07:57 07:57 Triglycerides 215 Cholesterol 218 LDL Cholesterol, Calc 118 HDL Cholesterol 57 Vitamin B12 428 25-OH Vitamin D Total 13.9 Folate 7.0 TSH 1.20 Medications Medications Current Medications Generic Name Dose Route Start Last Admin Trade Name Freq PRN Reason Stop Dose Admin Acetaminophen 650 mg 12/24/20 21:27 Acetaminophen 325 Mg Tablet PO Q6H PRN Headache/Pain Mild Scale (1-3) Al Hydroxide/Mg Hydroxide 30 ml 12/24/20 21:27 Magnesium Hydrox/Alum Hydrox 30 Ml Oral.Susp PO Q6H PRN Heartburn/Nausea Albuterol Sulfate 2 puff 12/24/20 11:50 Albuterol Sulfate 90 Mcg 8 Gm Inhaler INHALE QID PRN wheezing Albuterol/Ipratropium 3 ml 12/26/20 11:37 Albuterol/Iprat 2.5/0.5mg 3 Ml Ampul.Neb INHALE RQ4H PRN breathing Docusate Sodium 100 mg 12/26/20 21:00 12/27/20 09:00 Docusate Sodium 100 Mg Capsule PO 100 mg BID TEJA Administration Ferrous Sulfate 324 mg 12/26/20 12:00 12/27/20 09:00 Ferrous Sulfate 324 Mg Tablet. PO 324 mg DAILY [facility] Administration Hydroxyzine HCl 25 mg 12/24/20 21:27 Hydroxyzine Hcl 25 Mg Tablet PO BEDTIME PRN Anxiety [place] Carbonate 300 mg 12/24/20 12:00 12/27/20 09:00 [place] Carbonate Er 300 Mg Tablet.Er PO 300 mg BID TEJA Administration Loperamide HCl 2 mg 12/24/20 15:22 12/24/20 15:35 Loperamide Hcl 2 Mg Capsule PO 2 mg Q6H PRN Administration diarrhea Magnesium Hydroxide 30 ml 12/24/20 21:27 Milk Of Magnesia 30 Ml Oral.Susp PO DAILY PRN Constipation Nicotine 7 mg 12/24/20 12:00 12/27/20 09:21 Nicotine 7 Mg Patch.Td24 TRANSDERMA 7 mg DAILY [facility] Administration Omeprazole 20 mg 12/26/20 09:30 12/27/20 09:01 Omeprazole 20 Mg Capsule. PO 20 mg DAILY@0630 [facility] Administration Psyllium Hydrophilic Mucilloid 3.4 gm 12/26/20 11:49 Psyllium Seed 3.4 Gm Powd.Pack PO DAILY PRN Constipation Quetiapine Fumarate 50 mg 12/26/20 21:00 12/26/20 21:05 Quetiapine Fumarate 50 Mg Tablet PO 50 mg BEDTIME TEJA Administration Quetiapine Fumarate 25 mg 12/26/20 11:42 Quetiapine Fumarate 25 Mg Tablet PO ONCE PRN agitation Sertraline HCl 100 mg 12/24/20 12:00 12/27/20 09:01 Sertraline Hcl 100 Mg Tablet PO 100 mg DAILY [facility] Administration Trazodone HCl 50 mg 12/24/20 11:50 12/25/20 20:52 Trazodone Hcl 50 Mg Tablet PO 50 mg BEDTIME PRN Administration Insomnia Trazodone HCl 100 mg 12/26/20 21:00 12/26/20 21:05 Trazodone Hcl 100 Mg Tablet PO 100 mg BEDTIME TEJA Administration Valacyclovir HCl 1,000 mg 12/24/20 12:00 12/27/20 09:01 Valacycyclovir Hcl 1,000 Mg Tablet PO 1,000 mg BID TEJA Administration Vitamin D 25 mcg 12/27/20 09:00 12/27/20 09:00 Cholecalciferol (Vitamin D3) 25 Mcg Tablet PO 25 mcg DAILY TEJA Administration Allergies Allergies Allergy/AdvReac Type Severity Reaction Status Date / Time aspirin [Aspirin] Allergy Severe HIVES,THROAT Verified 12/12/20 20:36 SWELLS bee pollen [BEE STINGS] Allergy Severe ANAPHYLAXIS Verified 12/12/20 20:36 diphenhydramine Allergy Severe hives, Verified 12/12/20 20:36 [From BENADRYL ALLERGY] throat swells Penicillins [PCN] Allergy Severe HIVES Verified 12/12/20 20:36 THROAT SWELLS Sulfa (Sulfonamide Allergy Intermediate HIVES Verified 12/12/20 20:36 Antibiotics) [SULFA (SULFONAMIDE ANTIBIOTICS)] tramadol [TRAMADOL] Allergy Intermediate ITCHING Verified 12/12/20 20:36 latex [LATEX] Allergy Unknown UNKNOWN Verified 12/12/20 20:36 penicillin G Allergy Unknown Unknown Verified 12/12/20 20:36 levofloxacin [From Levaquin] Allergy Hives Verified 12/13/20 04:57 bee stings Allergy Unknown Unknown Uncoded 12/12/20 20:36 D[employer] Allergy Unknown Unknown Uncoded 12/12/20 20:36 sulfa drugs Allergy Unknown Unknown Uncoded 12/12/20 20:36 Assessment & Plan Assessment & Plan (1) Bipolar disorder, current episode depressed, mild or moderate severity, unspecified: Status: Acute Code(s): F31.30 - Bipolar disorder, current episode depressed, mild or moderate severity, unspecified Assessment and Plan: Continue current plan to re-establish regime. Greater than 50% of the session was spent on counseling and/or coordination of care Reason for contiued inpatient stay Substantial Risk for: harm to self
[2020-12-27 12:00] VITALS: BP 116/59; PULSE 80; RESP 16; O2SAT 96
[2020-12-27 17:30] VITALS: BP 111/60; PULSE 90; RESP 18; TEMP 36.6; O2SAT 94
[2020-12-27] MEDS: QUEtiapine Fumarate 50 MG TABLET PO (21:33)
[2020-12-27] MEDS: traZODone HCL 100 MG TABLET PO (21:34)
[2020-12-28] MEDS: Omeprazole 20 MG CAPSULE.DR PO (06:15)
[2020-12-28 06:30] VITALS: BP 128/59; PULSE 79; RESP 16; TEMP 36.6; O2SAT 93
[2020-12-28] MEDS: Sertraline HCL 100 MG TABLET PO (09:07)
[2020-12-28] MEDS: Docusate Sodium 100 MG CAPSULE PO ×2 (09:07→20:47)
[2020-12-28] MEDS: Lithium Carbonate ER 300 MG TABLET.ER PO ×2 (09:07→20:47)
[2020-12-28] MEDS: Nicotine 7 MG PATCH.TD24 TRANSDERMA (09:07)
[2020-12-28] MEDS: Ferrous Sulfate 324 MG TABLET.DR PO (09:07)
[2020-12-28] MEDS: Cholecalciferol (Vitamin D3) 25 MCG TABLET PO (09:07)
--- NOTE | 2020-12-28 11:05 | P.PNPSI_ITS ---
Subjective Subjective Date of Service: 12/28/20 Reason For Visit: Mood swings Interim History: 12/28: Patient appears to be euthymic state she is ready to go home. Patient to go home on Tuesday as she has new apartment and has to withdraw money. Feels stable on meds that were restarted. 12/27: Pleased to be back on meds. No complaints. Pleasant. 12/26:Reports feeling improved. Discussed med regime and changes. Reports right abdominal pain-c/o constipation. Colace, Metamucil ordered. If pain persists may need to meet with hospitalist. Planning discharge next week as we are establish ing regime that has been effective for her in the past. Review of Systems Review of Systems Yes all other systems are reviewed and are negative Constitutional: Reports as per HPI and Reports no additional constitutional complaints Eyes: Reports as per HPI and Reports no additional eye complaints Reports system reviewed and no additional complaints, except as documented and Reports as per HPI Cardiovascular: Reports as per HPI and Reports no additional cardiovascular complaints Respiratory: Reports as per HPI and Reports no additional respiratory complaints Gastrointestinal: Reports as per HPI, Reports no additional gastrointestinal complaints and Reports constipation Musculoskeletal: Reports no additional musculoskeletal complaints and Reports as per HPI Reports system reviewed and no additional complaints, except as documented and Reports as per HPI Psychiatric: Reports no additional psychiatric complaints and Reports as per HPI Mental Status Exam Mental Status Exam Patient Appearance: Appropriate Patient Orientation: Person, Place, Time and Situation Level of Consciousness: Awake and Alert Patient Behavior: Appropriate Mood Description: Constricted Affect Description: Constricted Patient Cognition Impaired: No Ability to Follow Directions: Good Speech Pattern: Clear, Appropriate and Spontaneous Speech Memory Description: Intact Diagnostics Vital Signs (24Hr): Vital Signs - 24 hr 12/27/20 12:00 12/27/20 17:30 12/28/20 06:30 Temperature 97.9 F 98 F Pulse Rate 80 90 79 Respiratory Rate 16 18 16 Blood Pressure 116/59 L 111/60 128/59 L Pulse Oximetry 96 94 93 Body Mass Index 32.3 Labs Results: 12/23/20 19:34 12/23/20 19:34 Medications Medications Current Medications Generic Name Dose Route Start Last Admin Trade Name Freq PRN Reason Stop Dose Admin Acetaminophen 650 mg 12/24/20 21:27 Acetaminophen 325 Mg Tablet PO Q6H PRN Headache/Pain Mild Scale (1-3) Al Hydroxide/Mg Hydroxide 30 ml 12/24/20 21:27 Magnesium Hydrox/Alum Hydrox 30 Ml Oral.Susp PO Q6H PRN Heartburn/Nausea Albuterol Sulfate 2 puff 12/24/20 11:50 Albuterol Sulfate 90 Mcg 8 Gm Inhaler INHALE QID PRN wheezing Albuterol/Ipratropium 3 ml 12/26/20 11:37 Albuterol/Iprat 2.5/0.5mg 3 Ml Ampul.Neb INHALE RQ4H PRN breathing Docusate Sodium 100 mg 12/26/20 21:00 12/28/20 09:07 Docusate Sodium 100 Mg Capsule PO 100 mg BID TEJA Administration Ferrous Sulfate 324 mg 12/26/20 12:00 12/28/20 09:07 Ferrous Sulfate 324 Mg Tablet. PO 324 mg DAILY TEJA Administration Hydroxyzine HCl 25 mg 12/24/20 21:27 Hydroxyzine Hcl 25 Mg Tablet PO BEDTIME PRN Anxiety [place] Carbonate 300 mg 12/24/20 12:00 12/28/20 09:07 [place] Carbonate Er 300 Mg Tablet.Er PO 300 mg BID TEJA Administration Loperamide HCl 2 mg 12/24/20 15:22 12/24/20 15:35 Loperamide Hcl 2 Mg Capsule PO 2 mg Q6H PRN Administration diarrhea Magnesium Hydroxide 30 ml 12/24/20 21:27 Milk Of Magnesia 30 Ml Oral.Susp PO DAILY PRN Constipation Nicotine 7 mg 12/24/20 12:00 12/28/20 09:07 Nicotine 7 Mg Patch.Td24 TRANSDERMA 7 mg DAILY [facility] Administration Omeprazole 20 mg 12/26/20 09:30 12/28/20 06:15 Omeprazole 20 Mg Capsule. PO 20 mg DAILY@0630 [facility] Administration Psyllium Hydrophilic Mucilloid 3.4 gm 12/26/20 11:49 Psyllium Seed 3.4 Gm Powd.Pack PO DAILY PRN Constipation Quetiapine Fumarate 50 mg 12/26/20 21:00 12/27/20 21:33 Quetiapine Fumarate 50 Mg Tablet PO 50 mg BEDTIME TEJA Administration Quetiapine Fumarate 25 mg 12/26/20 11:42 Quetiapine Fumarate 25 Mg Tablet PO ONCE PRN agitation Sertraline HCl 100 mg 12/24/20 12:00 12/28/20 09:07 Sertraline Hcl 100 Mg Tablet PO 100 mg DAILY TE[facility] Administration Trazodone HCl 50 mg 12/24/20 11:50 12/25/20 20:52 Trazodone Hcl 50 Mg Tablet PO 50 mg BEDTIME PRN Administration Insomnia Trazodone HCl 100 mg 12/26/20 21:00 12/27/20 21:34 Trazodone Hcl 100 Mg Tablet PO 100 mg BEDTIME TEJA Administration Valacyclovir HCl 1,000 mg 12/24/20 12:00 12/28/20 09:07 Valacycyclovir Hcl 1,000 Mg Tablet PO 1,000 mg BID TEJA Administration Vitamin D 25 mcg 12/27/20 09:00 12/28/20 09:07 Cholecalciferol (Vitamin D3) 25 Mcg Tablet PO 25 mcg DAILY TEJA Administration Allergies Allergies Allergy/AdvReac Type Severity Reaction Status Date / Time aspirin [Aspirin] Allergy Severe HIVES,THROAT Verified 12/12/20 20:36 SWELLS bee pollen [BEE STINGS] Allergy Severe ANAPHYLAXIS Verified 12/12/20 20:36 diphenhydramine Allergy Severe hives, Verified 12/12/20 20:36 [From BENADRYL ALLERGY] throat swells Penicillins [PCN] Allergy Severe HIVES Verified 12/12/20 20:36 THROAT SWELLS Sulfa (Sulfonamide Allergy Intermediate HIVES Verified 12/12/20 20:36 Antibiotics) [SULFA (SULFONAMIDE ANTIBIOTICS)] tramadol [TRAMADOL] Allergy Intermediate ITCHING Verified 12/12/20 20:36 latex [LATEX] Allergy Unknown UNKNOWN Verified 12/12/20 20:36 penicillin G Allergy Unknown Unknown Verified 12/12/20 20:36 levofloxacin [From Levaquin] Allergy Hives Verified 12/13/20 04:57 bee stings Allergy Unknown Unknown Uncoded 12/12/20 20:36 [employer] Allergy Unknown Unknown Uncoded 12/12/20 20:36 sulfa drugs Allergy Unknown Unknown Uncoded 12/12/20 20:36 Assessment & Plan Assessment & Plan (1) Bipolar disorder, current episode depressed, mild or moderate severity, unspecified: Status: Acute Code(s): F31.30 - Bipolar disorder, current episode depressed, mild or moderate severity, unspecified Assessment and Plan: Continue current plan to re-establish regime. Greater than 50% of the session was spent on counseling and/or coordination of care Reason for contiued inpatient stay Substantial Risk for: harm to self
[2020-12-28] MEDS: QUEtiapine Fumarate 25 MG TABLET PO (17:26)
[2020-12-28 18:00] VITALS: BP 123/79; PULSE 102; RESP 18; TEMP 36.2
[2020-12-28] MEDS: QUEtiapine Fumarate 50 MG TABLET PO (20:47)
[2020-12-28] MEDS: traZODone HCL 100 MG TABLET PO (20:47)
[2020-12-29 06:20] VITALS: BP 112/66; PULSE 69; RESP 18; TEMP 36.9; O2SAT 94
[2020-12-29] MEDS: Omeprazole 20 MG CAPSULE.DR PO (08:54)
[2020-12-29] MEDS: Cholecalciferol (Vitamin D3) 25 MCG TABLET PO (08:54)
[2020-12-29] MEDS: Ferrous Sulfate 324 MG TABLET.DR PO (08:54)
[2020-12-29] MEDS: Sertraline HCL 100 MG TABLET PO (08:54)
[2020-12-29] MEDS: Docusate Sodium 100 MG CAPSULE PO (08:54)
[2020-12-29] MEDS: Lithium Carbonate ER 300 MG TABLET.ER PO (08:54)
--- NOTE | 2020-12-29 13:58 | PM.PSYDC ---
DS: Providers Provider Date of Service: 12/31/20 Date of admission: 12/24/20 21:27 Date of discharge: 12/29/20 Primary care physician: Pt in process of choosing a primary care physician DS: Diagnosis Discharge Diagnosis (1) Bipolar disorder, current episode depressed, mild or moderate severity, unspecified: Status: Acute Problem details: 50 yo female, history of bipolar disorder, PTSD, borderline personality disorder and addiction (reports being eight months sober) with a history of treatment noncompliance, agitation, SIBS presents reporting SI with a plan to jump from a bridge and medication non-compliance for the 5-6 days prior to admission. Precipitants pt identifies are being homeless and unable to manage. Pt reports she will have a new apartment available for her on 12/29/20 but needs assistance until then to re-stabilize. 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 Pt asks that we assist her in re-stabilizing regime. DS: Medications Discharge Medications Home Medications: Previous Rx's Medication Instructions Recorded albuterol sulfate 2 puff INHALATION QID PRN #1 g 12/29/20 cholecalciferol (vitamin D3) 25 mcg PO DAILY #30 tab 12/29/20 docusate sodium 100 mg PO BID #60 cap 12/29/20 ferrous sulfate 324 mg PO DAILY #30 tab 12/29/20 lithium carbonate 300 mg PO BID #60 tab 12/29/20 omeprazole 20 mg PO DAILY@0630 #30 cap 12/29/20 quetiapine 1 tab PO BEDTIME PRN #10 tab 12/29/20 quetiapine 50 mg PO BEDTIME #30 tab 12/29/20 sertraline 100 mg PO DAILY #30 tab 12/29/20 trazodone 50 mg PO BEDTIME PRN #15 tab 12/29/20 trazodone 100 mg PO BEDTIME #30 tab 12/29/20 valacyclovir [Valtrex] 1,000 mg PO BID #60 tab 12/29/20 Discharge Plan Discharge Patient Disposition: Home, Self-Care Referrals: Shereen Miller (therapist) [Other] (Referral submitted, please follow up for appointments) Malvin Mars (psychiatrist) [Other] (Referral submitted, please follow up for appointments) Physician,None [Primary Care Provider] - Discharge Medications: New lithium carbonate 300 mg Tablet Extended Release 300 mg PO BID Qty: 60 RF: 0 trazodone 100 mg Tablet 100 mg PO BEDTIME Qty: 30 RF: 0 docusate sodium 100 mg Capsule 100 mg PO BID Qty: 60 RF: 0 omeprazole 20 mg Capsule,Delayed Release(Dr/Ec) 20 mg PO DAILY@0630 Qty: 30 RF: 0 quetiapine 50 mg Tablet 50 mg PO BEDTIME Qty: 30 RF: 0 ferrous sulfate 324 mg (65 mg iron) Tablet,Delayed Release (Dr/Ec) 324 mg PO DAILY Qty: 30 RF: 0 cholecalciferol (vitamin D3) 25 mcg (1,000 unit) Tablet 25 mcg PO DAILY Qty: 30 RF: 0 Continued trazodone 50 mg Tablet 50 mg PO BEDTIME PRN (Reason: Insomnia) Qty: 15 RF: 1 valacyclovir [Valtrex] 1 gram Tablet 1,000 mg PO BID Qty: 60 RF: 0 sertraline 100 mg Tablet 100 mg PO DAILY Qty: 30 RF: 0 albuterol sulfate 90 mcg/actuation HFA aerosol inhaler 2 puff inhalation QID PRN (Reason: wheezing) Qty: 1 RF: 0 quetiapine 50 mg tablet 1 tab PO BEDTIME PRN (Reason: Insomnia) Qty: 10 RF: 0 Discontinued prednisone 20 mg Tablet 40 mg PO DAILY Qty: 2 RF: 0 (DME) nebulizers Misc See Rx Instructions .ROUTE .MEDSUPPLY Qty: 1 RF: 0 acetaminophen 325 mg tablet 2 tab PO Q6H PRN (Reason: mild pain) RF: 0 nicotine 7 mg/24 hr patch 24 hour 1 patch transdermal DAILY RF: 0 lithium carbonate 300 mg Tablet Extended Release 300 mg PO BID RF: 0 No Action nitrofurantoin monohyd/m-cryst [Macrobid] 100 mg capsule 100 mg PO BID 7 Days Qty: 14 RF: 0 permethrin 5 % cream 1 appl topical Q14D Qty: 60 RF: 2 Discharge Orders: Discharge Order (Routine); Ordered 12/29/20 Ordered By: Reina Lyle Diet: advance to usual diet Activity on Discharge: As tolerated Stand Alone Forms: Patient Portal Discharge page, Community Support Care Plan Goals: Mood Stabilization Health Concerns: Bipolar Disorder Plan of Treatment: Attend appointments as scheduled Take medications as directed Discharge Date/Time: 12/29/20 11:20 Mental Status Exam Mental Status Exam Patient Appearance: Appropriate Patient Orientation: Person, Place, Time and Situation Level of Consciousness: Awake and Alert Patient Behavior: Appropriate, Talkative and Anxious Mood Description: Happy and Appropriate Affect Description: Calm Patient Cognition Impaired: No Ability to Follow Directions: Good Speech Pattern: Clear and Spontaneous Speech Memory Description: Intact Hallucinations: None Delusions: Not Present Thought Process: Intact Thought Content: positive for Suicidal Ideation (denies SI plan or intent) Judgement: Good Data Data Completed and Pending Completed studies during hospitalization [Text1]: 12/23/20 12/23/20 12/23/20 16:49 16:49 19:34 WBC 12.7 H RBC 4.13 L Hgb 12.5 Hct 38.5 MCV 93.2 MCH 30.3 MCHC 32.5 RDW 13.0 Plt Count 281 MPV 9.4 Immature Gran % (Auto) 0.6 H Neut % (Auto) 59.8 Lymph % (Auto) 33.0 [place] % (Auto) 5.1 Eos % (Auto) 1.0 Baso % (Auto) 0.5 Lymph # (Auto) 4.2 [place] # (Auto) 0.7 Eos # (Auto) 0.1 Baso # (Auto) 0.1 Abs Immat Gran (auto) 0.08 H Absolute Neuts (auto) 7.6 Absolute Nucleated RBC 0.000 Nucleated RBC % (auto) 0.0 Sodium Potassium Chloride Carbon Dioxide Anion Gap BUN Creatinine Estim Creat Clear Calc Estimated GFR Random Glucose Calcium Total Bilirubin Direct Bilirubin AST ALT Alkaline Phosphatase Total Protein Albumin Triglycerides Cholesterol LDL Cholesterol, Calc HDL Cholesterol Vitamin B12 25-OH Vitamin D Total Folate TSH Urine Color YELLOW Urine Appearance CLEAR Urine pH 6.0 Ur Specific [place] 1.025 Urine Protein NEG Urine Glucose (UA) NEG Urine Ketones NEG Urine Blood NEG Urine Nitrite NEG Ur Leukocyte Esterase NEG Urine Opiates Screen Not Detected Ur Barbiturates Screen Not Detected Ur Phencyclidine Scrn Not Detected Ur Amphetamines Screen Not Detected U Benzodiazepines Scrn Not Detected [place] Urine Cocaine Screen Not Detected U Marijuana (THC) Screen Not Detected Ethyl Alcohol COVID-19 ([facility]) COVID-19 Clin Com 12/23/20 12/23/20 12/24/20 19:34 19:34 13:44 WBC RBC Hgb Hct MCV MCH MCHC RDW Plt Count MPV Immature Gran % (Auto) Neut % (Auto) Lymph % (Auto) [place] % (Auto) Eos % (Auto) Baso % (Auto) Lymph # (Auto) [place] # (Auto) Eos # (Auto) Baso # (Auto) Abs Immat Gran (auto) Absolute Neuts (auto) Absolute Nucleated RBC Nucleated RBC % (auto) Sodium 141 Potassium 4.2 Chloride 104 Carbon Dioxide 28 Anion Gap 13 BUN 18 H Creatinine 0.69 Estim Creat Clear Calc 111.9 Estimated GFR > 60 Random Glucose 90 Calcium 9.0 Total Bilirubin < 0.2 Direct Bilirubin < 0.2 AST 11 ALT 16 Alkaline Phosphatase 72 Total Protein 6.2 L Albumin 4.1 Triglycerides Cholesterol LDL Cholesterol, Calc HDL Cholesterol Vitamin B12 25-OH Vitamin D Total Folate TSH Urine Color Urine Appearance Urine pH Ur Specific [place] Urine Protein Urine Glucose (UA) Urine Ketones Urine Blood Urine Nitrite Ur Leukocyte Esterase Urine Opiates Screen Ur Barbiturates Screen Ur Phencyclidine Scrn Ur Amphetamines Screen U Benzodiazepines Scrn [place] Urine Cocaine Screen U Marijuana (THC) Screen Ethyl Alcohol < 10 COVID-19 ([facility]) Negative COVID-19 Clin Com See Note 12/24/20 12/26/20 12/26/20 21:07 07:57 07:57 WBC RBC Hgb Hct MCV MCH MCHC RDW Plt Count MPV Immature Gran % (Auto) Neut % (Auto) Lymph % (Auto) [place] % (Auto) Eos % (Auto) Baso % (Auto) Lymph # (Auto) [place] # (Auto) Eos # (Auto) Baso # (Auto) Abs Immat Gran (auto) Absolute Neuts (auto) Absolute Nucleated RBC Nucleated RBC % (auto) Sodium Potassium Chloride Carbon Dioxide Anion Gap BUN Creatinine Estim Creat Clear Calc Estimated GFR Random Glucose Calcium Total Bilirubin Direct Bilirubin AST ALT Alkaline Phosphatase Total Protein Albumin Triglycerides 215 Cholesterol 218 LDL Cholesterol, Calc 118 HDL Cholesterol 57 Vitamin B12 428 25-OH Vitamin D Total 13.9 Folate 7.0 TSH 1.20 Urine Color Urine Appearance Urine pH Ur Specific [place] Urine Protein Urine Glucose (UA) Urine Ketones Urine Blood Urine Nitrite Ur Leukocyte Esterase Urine Opiates Screen Ur Barbiturates Screen Ur Phencyclidine Scrn Ur Amphetamines Screen U Benzodiazepines Scrn [place] 0.14 L Urine Cocaine Screen U Marijuana (THC) Screen Ethyl Alcohol COVID-19 ([facility]) COVID-19 Clin Com DS: Summary Hospital Course Hospital Course: Bhavana signed in on a conditional voluntary status. Previous medications were reviewed and pt reported efficacy with that regime and as a result they were re-established. Pt returned to baseline in a short period of time and worked with the team. She requested to discharge on 12/29/20 as she had an apartment offered to her. She identified being homeless as one of the most difficult experiences she has endured and did not want to miss this opportunity to secure her housing. She was able to re-establish her regime and work in the milieu to process identified stressors so she could move forward. She declined further services on the day of discharge, stating she would call or return if she was in need, however also stating that [facility] would be in contact with her to arrange her follow up. Diagnostics were reviewed. Pt reports she has regular lab work with [facility]. [place] level due the week of 01/12-informed pt TW could order this if [facility] appt was not scheduled at that time. Time spent discussing smoking cessation with patient: 3 to 10 minutes Status at Discharge Cognitive/behavioral status at discharge: alert, oriented, denies SI, HI. She is excited and anxious as she will be moving into a new apartment today. Functional status at discharge: independent ambulation Overall status at discharge: patient is back to baseline Time Spent with Patient Time attestation: Total time spent providing and/or coordinating discharge services: 35 Time spent: Greater than 30 minutes
== END 2020-12-29 11:20 | disposition home or self-care (01) | DRG 753 ==
LOC: HO.ED 12-24 11:08 → HO.PM5 12-24 21:34
PROVIDERS: Nurse Practitioner Primary Care; Physician Assistant; Admitting Provider Psychiatry & Neurology Psychiatry; Emergency Provider Emergency Medicine; Visit Provider Clinical Nurse Specialist Psychiatric/Mental Health, Adult
DX: F31.30 Bipolar disorder, current episode depressed, mild or moderate severity, unspecified (principal); R45.851 Suicidal ideations; F17.210 Nicotine dependence, cigarettes, uncomplicated; Z71.6 Tobacco abuse counseling; Z20.822 Contact with and (suspected) exposure to COVID-19; Z88.0 Allergy status to penicillin; Z59.0 Homelessness; Z88.2 Allergy status to sulfonamides; Z88.6 Allergy status to analgesic agent; Z79.899 Other long term (current) drug therapy
CPT/HCPCS: 36415; 80053; 80061; 80076; 80178; 80307; 80320; 81003; 82248; 82306; 82607; 82746; 84443; 85025; 87635; 99285

== ENCOUNTER 2020-12-30 04:26 | Emergency (ER) | payer MEDICAID, SELFPAY ==
--- NOTE | ~2020-12-30 | XR_ITS ---
EXAMINATION: XR CHEST CLINICAL INFORMATION: Cough COMPARISON: 12/12/2020 TECHNIQUE: Frontal view of the chest was obtained. FINDINGS: The lungs are clear with no focal consolidation. No evidence of pneumothorax, pulmonary edema, or pleural effusions. Cardiac size is within normal limits. Calcification is present at the aortic arch. No acute osseous findings are seen. XR/XR chest 1V IMPRESSION: No acute cardiopulmonary findings.
[2020-12-30 04:33] VITALS: BP 145/78; PULSE 109; RESP 19; O2SAT 93; BMI 53.2
[2020-12-30 04:43] VITALS: PULSE 109
--- NOTE | 2020-12-30 04:45 | ED_ITS ---
HPI - General Adult General Chief complaint: ETOH/Substance Use Stated complaint: seizure/subtance use Time Seen by Provider: 12/30/20 04:45 Source: patient Mode of arrival: EMS History of Present Illness HPI narrative: This is a 50-year-old female who is recently discharged from the emergency room after being evaluated for crisis. She is now brought in by EMS with reports of grand mal seizure that on further investigation patient states that she has pseudoseizures when she is stressed out. History prior to EMS arriving on scene is the patient has smoked an 8 ball of crack. Patient otherwise denies any acute symptoms of shortness of breath, chest pain/palpitations but is also observed to be very agitated. Related Data Previous Rx's Medication Instructions Recorded albuterol sulfate 2 puff INHALATION QID PRN #1 g 12/29/20 cholecalciferol (vitamin D3) 25 mcg PO DAILY #30 tab 12/29/20 docusate sodium 100 mg PO BID #60 cap 12/29/20 ferrous sulfate 324 mg PO DAILY #30 tab 12/29/20 lithium carbonate 300 mg PO BID #60 tab 12/29/20 omeprazole 20 mg PO DAILY@0630 #30 cap 12/29/20 quetiapine 1 tab PO BEDTIME PRN #10 tab 12/29/20 quetiapine 50 mg PO BEDTIME #30 tab 12/29/20 sertraline 100 mg PO DAILY #30 tab 12/29/20 trazodone 50 mg PO BEDTIME PRN #15 tab 12/29/20 trazodone 100 mg PO BEDTIME #30 tab 12/29/20 valacyclovir [Valtrex] 1,000 mg PO BID #60 tab 12/29/20 Allergies Allergy/AdvReac Type Severity Reaction Status Date / Time aspirin [Aspirin] Allergy Severe HIVES,THROAT Verified 12/12/20 20:36 SWELLS bee pollen [BEE STINGS] Allergy Severe ANAPHYLAXIS Verified 12/12/20 20:36 diphenhydramine Allergy Severe hives, Verified 12/12/20 20:36 [From BENADRYL ALLERGY] throat swells Penicillins [PCN] Allergy Severe HIVES Verified 12/12/20 20:36 THROAT SWELLS Sulfa (Sulfonamide Allergy Intermediate HIVES Verified 12/12/20 20:36 Antibiotics) [SULFA (SULFONAMIDE ANTIBIOTICS)] tramadol [TRAMADOL] Allergy Intermediate ITCHING Verified 12/12/20 20:36 latex [LATEX] Allergy Unknown UNKNOWN Verified 12/12/20 20:36 penicillin G Allergy Unknown Unknown Verified 12/12/20 20:36 levofloxacin [From Levaquin] Allergy Hives Verified 12/13/20 04:57 bee stings Allergy Unknown Unknown Uncoded 12/12/20 20:36 DairyCare Allergy Unknown Unknown Uncoded 12/12/20 20:36 sulfa drugs Allergy Unknown Unknown Uncoded 12/12/20 20:36 Review of Systems Review of Systems: Pertinent positives and negatives as stated in HPI 10 point review of systems is otherwise negative. PMFSH Past Medical History Source: nursing notes reviewed Medical History Bipolar disorder Borderline personality disorder COPD (chronic obstructive pulmonary disease) Depression Herpes Tobacco use Surgical History History of ankle surgery History of appendectomy History of back surgery Hx of cholecystectomy Family History Family History Mother COPD (chronic obstructive pulmonary disease) Social History Social History Household Members: None Housing: Homeless Alcohol intake: unknown Smoking Status: Unknown if ever smoked Tobacco Type: Cigarette Packs Per Day: 1 Cigarettes Per Day: 20.0 Years Smoked: 36 Second Hand Smoke Exposure: Yes Use of substances other than those prescribed or required for medical reasons: Yes Substance Use Type: Crack/Cocaine Substance Use Frequency: Chronic Longstanding Last Used Substance: Just Prior to Admission Any prior treatment program specific to substance use: No Advance Directives: No service: No Current occupational status: unemployed Sexual orientation: Straight/Heterosexual Physical Exam 2 Vital Signs: Vital Signs: Last Vital Signs Pulse 83 12/30/20 06:00 Resp 25 H 12/30/20 06:00 BP 116/62 12/30/20 06:00 Pulse Ox 92 12/30/20 06:00 Body Mass Index 53.2 VITAL SIGNS: Reviewed. GENERAL: Well developed, well nourished, in no acute distress. HEAD: Normocephalic/atraumatic, EYES: PERRLA, EOMI NOSE: Nares patent bilateral OROPHARYNX: no oral lesions noted, posterior pharynx clear NECK: Supple, no adenopathy LUNGS: Normal breath sounds. No adventitious sounds or accessory muscle use. SpO2<93> CARDIOVASCULAR: Tachycardic rate and rhythm without noted murmurs, no JVD or lower extremity edema. ABDOMEN: Soft, non-tender, non-distended with bowel sounds. NEUROLOGIC: Alert and oriented x 4. Strength and sensation to light touch were grossly intact x 4. PSYCH: Agitated, anxious Course Course Course Narrative: This is a 50-year-old female with history and clinical presentation consistent with having smoked crack and history of seizures is ?pseudoseizures?. Review of all investigations only significant for evidence of UTI with presence of Trichomonas, patient was treated with initial dose of Macrobid (she is allergic to penicillin-anaphylaxis) as well as 2 g Flagyl. Signed out to Dr Cisse: Plan to d/c when more awake. Medical Decision Making Lab Data Result diagrams: 12/30/20 05:20 12/30/20 05:20 Labs: Lab Results 12/30/20 12/30/20 12/30/20 Range/Units 05:07 05:07 05:20 WBC (4.8-10.8) X10*3/uL RBC (4.20-5.50) X10*6/uL Hgb (12.0-16.0) g/dl Hct (37-47) % MCV (80-98) fL MCH (27.0-33.0) pg MCHC (31.0-35.0) g/dl RDW (11.0-16.0) % Plt Count (160-400) X10*3/uL MPV (9.4-12.3) fL Immature Gran % (Auto) (0.0-0.4) % Neut % (Auto) (45-73) % Lymph % (Auto) (20-40) % [place] % (Auto) (2-11) % Eos % (Auto) (0-4) % Baso % (Auto) (0-2) % Lymph # (Auto) (1.2-4.9) X10*3/uL [place] # (Auto) (0.1-1.2) X10*3/uL Eos # (Auto) (0.0-0.4) X10*3/uL Baso # (Auto) (0.0-0.2) X10*3/uL Abs Immat Gran (auto) (0.00-0.03) X10*3/uL Absolute Neuts (auto) (2.0-8.3) X10*3/uL Absolute Nucleated RBC (0.0-0.012) X10*3/uL Nucleated RBC % (auto) (0.0-0.2) /100WBC Sodium (135-145) mmol/L Potassium (3.3-5.1) mmol/L Chloride (96-108) mmol/L Carbon Dioxide (22-29) mmol/L Anion Gap (12-20) BUN (9-16) mg/dL Creatinine (0.5-1.4) mg/dL Estim Creat Clear Calc Estimated GFR Random Glucose (60-115) mg/dL Calcium (8.4-10.2) mg/dL Total Bilirubin (0.0-1.0) mg/dL AST (5-31) U/L ALT (0-31) U/L Alkaline Phosphatase (39-117) U/L Total Protein (6.5-8.0) g/dL Albumin (3.5-5.0) g/dL Urine Color YELLOW Urine Appearance HAZY Urine pH 6.0 (5.0-8.0) Ur Specific [place] 1.020 (1.005-1.025) Urine Protein NEG (NEG-TRACE) MG/DL Urine Glucose (UA) NEG (NEG) MG/DL Urine Ketones NEG (NEG) MG/DL Urine Blood TRACE (NEG) Urine Nitrite NEG (NEG) Ur Leukocyte Esterase 2+ H (NEG) Urine RBC 1-4 (0) /HPF Urine WBC 30-49 H (0-4) /HPF Ur Squamous Epith Cells 1+ /LPF Urine Bacteria 1+ /LPF Urine Trichomonas NOTED Urine Opiates Screen Not Detected (Not Detect) Ur Barbiturates Screen Not Detected (Not Detect) Ur Phencyclidine Scrn Not Detected (Not Detect) Ur Amphetamines Screen Not Detected (Not Detect) U Benzodiazepines Scrn Not Detected (Not Detect) [place] (0.60-1.20) mmol/L Urine Cocaine Screen POSITIVE H (Not Detect) U Marijuana (THC) Screen Not Detected (Not Detect) Ethyl Alcohol < 10 mg/dL 12/30/20 12/30/20 12/30/20 Range/Units 05:20 05:20 05:20 WBC 10.4 (4.8-10.8) X10*3/uL RBC 4.36 (4.20-5.50) X10*6/uL Hgb 13.1 (12.0-16.0) g/dl Hct 40.8 (37-47) % MCV 93.6 (80-98) fL MCH 30.0 (27.0-33.0) pg MCHC 32.1 (31.0-35.0) g/dl RDW 12.9 (11.0-16.0) % Plt Count 260 (160-400) X10*3/uL MPV 9.8 (9.4-12.3) fL Immature Gran % (Auto) 0.3 (0.0-0.4) % Neut % (Auto) 74.6 H (45-73) % Lymph % (Auto) 17.4 L (20-40) % [place] % (Auto) 6.6 (2-11) % Eos % (Auto) 0.5 (0-4) % Baso % (Auto) 0.6 (0-2) % Lymph # (Auto) 1.8 (1.2-4.9) X10*3/uL [place] # (Auto) 0.7 (0.1-1.2) X10*3/uL Eos # (Auto) 0.1 (0.0-0.4) X10*3/uL Baso # (Auto) 0.1 (0.0-0.2) X10*3/uL Abs Immat Gran (auto) 0.03 (0.00-0.03) X10*3/uL Absolute Neuts (auto) 7.8 (2.0-8.3) X10*3/uL Absolute Nucleated RBC 0.000 (0.0-0.012) X10*3/uL Nucleated RBC % (auto) 0.0 (0.0-0.2) /100WBC Sodium 140 (135-145) mmol/L Potassium 4.3 (3.3-5.1) mmol/L Chloride 106 (96-108) mmol/L Carbon Dioxide 26 (22-29) mmol/L Anion Gap 12 (12-20) BUN 11 (9-16) mg/dL Creatinine 0.76 (0.5-1.4) mg/dL Estim Creat Clear Calc 134.9 Estimated GFR > 60 Random Glucose 109 (60-115) mg/dL Calcium 8.8 (8.4-10.2) mg/dL Total Bilirubin 0.7 (0.0-1.0) mg/dL AST 17 D (5-31) U/L ALT 27 (0-31) U/L Alkaline Phosphatase 83 (39-117) U/L Total Protein 6.6 (6.5-8.0) g/dL Albumin 4.3 (3.5-5.0) g/dL Urine Color Urine Appearance Urine pH (5.0-8.0) Ur Specific [place] (1.005-1.025) Urine Protein (NEG-TRACE) MG/DL Urine Glucose (UA) (NEG) MG/DL Urine Ketones (NEG) MG/DL Urine Blood (NEG) Urine Nitrite (NEG) Ur Leukocyte Esterase (NEG) Urine RBC (0) /HPF Urine WBC (0-4) /HPF Ur Squamous Epith Cells /LPF Urine Bacteria /LPF Urine Trichomonas Urine Opiates Screen (Not Detect) Ur Barbiturates Screen (Not Detect) Ur Phencyclidine Scrn (Not Detect) Ur Amphetamines Screen (Not Detect) U Benzodiazepines Scrn (Not Detect) [place] 0.16 L (0.60-1.20) mmol/L Urine Cocaine Screen (Not Detect) U Marijuana (THC) Screen (Not Detect) Ethyl Alcohol mg/dL Discharge Plan Discharge Prescriptions: No Action lithium carbonate 300 mg Tablet Extended Release 300 mg PO BID Qty: 60 RF: 0 trazodone 100 mg Tablet 100 mg PO BEDTIME Qty: 30 RF: 0 docusate sodium 100 mg Capsule 100 mg PO BID Qty: 60 RF: 0 omeprazole 20 mg Capsule,Delayed Release(Dr/Ec) 20 mg PO DAILY@0630 Qty: 30 RF: 0 quetiapine 50 mg Tablet 50 mg PO BEDTIME Qty: 30 RF: 0 ferrous sulfate 324 mg (65 mg iron) Tablet,Delayed Release (Dr/Ec) 324 mg PO DAILY Qty: 30 RF: 0 cholecalciferol (vitamin D3) 25 mcg (1,000 unit) Tablet 25 mcg PO DAILY Qty: 30 RF: 0 trazodone 50 mg Tablet 50 mg PO BEDTIME PRN (Reason: Insomnia) Qty: 15 RF: 1 valacyclovir [Valtrex] 1 gram Tablet 1,000 mg PO BID Qty: 60 RF: 0 sertraline 100 mg Tablet 100 mg PO DAILY Qty: 30 RF: 0 albuterol sulfate 90 mcg/actuation HFA aerosol inhaler 2 puff inhalation QID PRN (Reason: wheezing) Qty: 1 RF: 0 quetiapine 50 mg tablet 1 tab PO BEDTIME PRN (Reason: Insomnia) Qty: 10 RF: 0
[2020-12-30 05:19] LABS: Glucose Urine UA NEG (NEG); Leukocyte Esterase Urine 2+ (NEG); Nitrite Urine NEG (NEG); Urine Blood TRACE (NEG); Urine Ketones NEG (NEG); Urine Protein NEG (NEG-TRACE)
[2020-12-30 05:22] LABS: Appearance Urine HAZY; Color Urine YELLOW
[2020-12-30 05:25] LABS: Basophils Absolute Auto 0.1 X10*3/uL (0.0-0.2); Basophils Percent Auto 0.6 % (0-2); Eosinophils Absolute Auto 0.1 X10*3/uL (0.0-0.4); Eosinophils Percent Auto 0.5 % (0-4); Hematocrit 40.8 % (37-47); Hemoglobin 13.1 g/dl (12.0-16.0); Imm Gran Abs Auto 0.03 X10*3/uL (0.00-0.03); Imm Gran Pct Auto 0.3 % (0.0-0.4); Lymphocytes Absolute Auto 1.8 X10*3/uL (1.2-4.9); Lymphocytes Percent Auto 17.4 % (20-40); Mean Corpuscular HGB Conc 32.1 g/dl (31.0-35.0); Mean Corpuscular Volume 93.6 fL (80-98); Mean Platelet Volume 9.8 fL (9.4-12.3); Monocytes Absolute Auto 0.7 X10*3/uL (0.1-1.2); Monocytes Percent Auto 6.6 % (2-11); Neutrophils Absolute Auto 7.8 X10*3/uL (2.0-8.3); Neutrophils Percent Auto 74.6 % (45-73); Platelet Count 260 X10*3/uL (160-400); Red Blood Count 4.36 X10*6/uL (4.20-5.50); Red Cell Distribution Width 12.9 % (11.0-16.0); White Blood Count 10.4 X10*3/uL (4.8-10.8)
[2020-12-30 05:26] LABS: MANUAL DIFF FLAG NO
[2020-12-30 05:29] LABS: Amphetamine Screen Urine Not Detected (Not Detect); Barbiturates, Urine Not Detected (Not Detect); Benzodiazepines Screen Urine Not Detected (Not Detect); Cannabinoid Screen Urine Not Detected (Not Detect); Cocaine Screen Urine POSITIVE (Not Detect); Opiate Screen Urine Not Detected (Not Detect); Phencyclidine Screen Urine Not Detected (Not Detect)
[2020-12-30 05:32] LABS: Bacteria Urine 1+ /LPF; Squamous Epithelial Cell Urine 1+ /LPF; Trichomonas Urine NOTED; WBC Urine 30-49 /HPF (0-4)
[2020-12-30 05:44] LABS: Lithium 0.16 mmol/L (0.60-1.20)
[2020-12-30 05:48] LABS: Ethanol < 10 mg/dL
[2020-12-30 05:51] LABS: Alanine Aminotransferase 27 U/L (0-31); Albumin Level 4.3 g/dL (3.5-5.0); Alkaline Phosphatase 83 U/L (39-117); Anion Gap 12 (12-20); Aspartate Amino Transferase 17 U/L (5-31); Bilirubin Total 0.7 mg/dL (0.0-1.0); Blood Urea Nitrogen 11 mg/dL (9-16); Calcium 8.8 mg/dL (8.4-10.2); Carbon Dioxide 26 mmol/L (22-29); Chloride 106 mmol/L (96-108); Creatinine Clr Calc Pharmacy 134.9; Estimated Glomerular Filt Rate > 60; Glucose Random 109 mg/dL (60-115); Potassium 4.3 mmol/L (3.3-5.1); Sodium 140 mmol/L (135-145); Total Protein 6.6 g/dL (6.5-8.0)
[2020-12-30 06:00] VITALS: BP 116/62; PULSE 83; RESP 25; O2SAT 92
[2020-12-30] MEDS: Acetaminophen 325 MG TABLET 975 MG PO (06:18)
[2020-12-30] MEDS: Nitrofurantoin Monohyd/M-Cryst 100 MG CAPSULE PO (06:18)
--- NOTE | 2020-12-30 06:22 | PC.NURSE ---
Patient's urine noted to have trichomonas in her urine. MD made aware. Medication prescribed.
[2020-12-30] MEDS: metroNIDAZOLE 500 MG TABLET 2000 MG PO (06:32)
--- NOTE | 2020-12-30 07:19 | PC.NURSE ---
Pt sleeping in room at this time. Respirations even/unlabored bilaterally. No sign of distress noted at this time. Will continue to monitor.
== END 2020-12-30 08:06 | disposition home or self-care (01) ==
PROVIDERS: Emergency Provider Student in an Organized Health Care Education/Training Program
DX: G40.409 Other generalized epilepsy and epileptic syndromes, not intractable, without status epilepticus (principal); F14.90 Cocaine use, unspecified, uncomplicated; F10.10 Alcohol abuse, uncomplicated; Y90.0 Blood alcohol level of less than 20 mg/100 ml; F17.210 Nicotine dependence, cigarettes, uncomplicated; Z79.899 Other long term (current) drug therapy; Z71.6 Tobacco abuse counseling
CPT/HCPCS: 36415; 71045; 80053; 80178; 80307; 80320; 81001; 85025; 87086; 99285

== ENCOUNTER 2020-12-30 22:27 | Emergency (ER) | payer MEDICAID, SELFPAY ==
--- NOTE | 2020-12-30 22:35 | ED.GENADULT ---
HPI - General Adult General Chief complaint: Skin/Abscess/Foreign Body Stated complaint: Bug bites Time Seen by Provider: 12/30/20 22:35 Source: patient Mode of arrival: ambulatory History of Present Illness HPI narrative: This is a 50-year-old female who presents with intense pruritus ?all over her body? since this morning after reportedly helping a neighbor move a mattress in bed linen. She denies any associated fevers, chills, diarrhea. She denies any facial swelling, tongue/lip swelling, difficulty breathing, difficulty swallowing. Related Data Previous Rx's Medication Instructions Recorded albuterol sulfate 2 puff INHALATION QID PRN #1 g 12/29/20 cholecalciferol (vitamin D3) 25 mcg PO DAILY #30 tab 12/29/20 docusate sodium 100 mg PO BID #60 cap 12/29/20 ferrous sulfate 324 mg PO DAILY #30 tab 12/29/20 lithium carbonate 300 mg PO BID #60 tab 12/29/20 omeprazole 20 mg PO DAILY@0630 #30 cap 12/29/20 quetiapine 1 tab PO BEDTIME PRN #10 tab 12/29/20 quetiapine 50 mg PO BEDTIME #30 tab 12/29/20 sertraline 100 mg PO DAILY #30 tab 12/29/20 trazodone 50 mg PO BEDTIME PRN #15 tab 12/29/20 trazodone 100 mg PO BEDTIME #30 tab 12/29/20 valacyclovir [Valtrex] 1,000 mg PO BID #60 tab 12/29/20 nitrofurantoin monohyd/m-cryst 100 mg PO BID 7 Days #14 cap 12/30/20 [Macrobid] Allergies Allergy/AdvReac Type Severity Reaction Status Date / Time aspirin [Aspirin] Allergy Severe HIVES,THROAT Verified 12/30/20 23:01 SWELLS bee pollen [BEE STINGS] Allergy Severe ANAPHYLAXIS Verified 12/30/20 23:01 diphenhydramine Allergy Severe hives, Verified 12/30/20 23:01 [From BENADRYL ALLERGY] throat swells Penicillins [PCN] Allergy Severe HIVES Verified 12/30/20 23:01 THROAT SWELLS Sulfa (Sulfonamide Allergy Intermediate HIVES Verified 12/30/20 23:01 Antibiotics) [SULFA (SULFONAMIDE ANTIBIOTICS)] tramadol [TRAMADOL] Allergy Intermediate ITCHING Verified 12/30/20 23:01 latex [LATEX] Allergy Unknown UNKNOWN Verified 12/30/20 23:01 penicillin G Allergy Unknown Unknown Verified 12/30/20 23:01 levofloxacin [From Levaquin] Allergy Hives Verified 12/30/20 23:01 bee stings Allergy Unknown Unknown Uncoded 12/12/20 20:36 D[employer]Care Allergy Unknown Unknown Uncoded 12/12/20 20:36 sulfa drugs Allergy Unknown Unknown Uncoded 12/12/20 20:36 Review of Systems Review of Systems: Pertinent positives and negatives as stated in HPI 10 point review of systems is otherwise negative. PMFSH Past Medical History Source: nursing notes reviewed Medical History Bipolar disorder Borderline personality disorder COPD (chronic obstructive pulmonary disease) Depression Herpes Tobacco use Surgical History History of ankle surgery History of appendectomy History of back surgery Hx of cholecystectomy Family History Family History Mother COPD (chronic obstructive pulmonary disease) Social History Social History Household Members: None Housing: Homeless Alcohol intake: unknown Smoking Status: Unknown if ever smoked Tobacco Type: Cigarette Packs Per Day: 1 Cigarettes Per Day: 20.0 Years Smoked: 36 Second Hand Smoke Exposure: Yes Substance Use Type: Crack/Cocaine Advance Directives: No Advance Directives Information Provided: No service: No Current occupational status: unemployed Sexual orientation: Straight/Heterosexual Physical Exam Vital Signs: Vital Signs: Last Vital Signs Temp 97.3 F 12/30/20 23:02 Pulse 95 12/30/20 23:02 Resp 18 12/30/20 23:02 BP 146/89 H 12/30/20 23:02 Pulse Ox 96 12/30/20 23:02 Body Mass Index 32.3 VITAL SIGNS: Reviewed. GENERAL: Well developed, well nourished, mildly anxious. OROPHARYNX: no oral lesions noted, posterior pharynx clear, no lips/tongue/facial swelling NECK: Supple, no adenopathy LUNGS: Normal breath sounds. No adventitious sounds or accessory muscle use. SpO2<96> CARDIOVASCULAR: Regular rate and rhythm without noted murmurs ABDOMEN: Soft, non-tender, non-distended with bowel sounds. SKIN: Inspection of the skin does not reveal any observable rash, but there is dry skin NEUROLOGIC: Alert and oriented x 4. Course Course Course Narrative: This is a 50-year-old female with history and clinical presentation most consistent with likely substance use reaction as there are no observable rashes or evidence of anaphylaxis, angioedema. On return for evaluation patient was noted to have eloped. Discharge Plan Discharge Clinical Impression: Pruritus Patient Disposition: Elopement Prescriptions: No Action lithium carbonate 300 mg Tablet Extended Release 300 mg PO BID Qty: 60 RF: 0 trazodone 100 mg Tablet 100 mg PO BEDTIME Qty: 30 RF: 0 docusate sodium 100 mg Capsule 100 mg PO BID Qty: 60 RF: 0 omeprazole 20 mg Capsule,Delayed Release(Dr/Ec) 20 mg PO DAILY@0630 Qty: 30 RF: 0 quetiapine 50 mg Tablet 50 mg PO BEDTIME Qty: 30 RF: 0 ferrous sulfate 324 mg (65 mg iron) Tablet,Delayed Release (Dr/Ec) 324 mg PO DAILY Qty: 30 RF: 0 cholecalciferol (vitamin D3) 25 mcg (1,000 unit) Tablet 25 mcg PO DAILY Qty: 30 RF: 0 trazodone 50 mg Tablet 50 mg PO BEDTIME PRN (Reason: Insomnia) Qty: 15 RF: 1 valacyclovir [Valtrex] 1 gram Tablet 1,000 mg PO BID Qty: 60 RF: 0 sertraline 100 mg Tablet 100 mg PO DAILY Qty: 30 RF: 0 albuterol sulfate 90 mcg/actuation HFA aerosol inhaler 2 puff inhalation QID PRN (Reason: wheezing) Qty: 1 RF: 0 quetiapine 50 mg tablet 1 tab PO BEDTIME PRN (Reason: Insomnia) Qty: 10 RF: 0 nitrofurantoin monohyd/m-cryst [Macrobid] 100 mg capsule 100 mg PO BID 7 Days Qty: 14 RF: 0 Interventions: ED Discharge Assessment Last Done: 12/30/20 23:24 Discharge Date/Time: 12/30/20 23:24
[2020-12-30 23:02] VITALS: BP 146/89; PULSE 95; RESP 18; TEMP 36.3; O2SAT 96; BMI 32.3
== END 2020-12-30 23:24 | disposition left against medical advice (07) ==
PROVIDERS: Emergency Provider Student in an Organized Health Care Education/Training Program
DX: L29.9 Pruritus, unspecified (principal); F17.210 Nicotine dependence, cigarettes, uncomplicated; Z79.899 Other long term (current) drug therapy; Z71.6 Tobacco abuse counseling
CPT/HCPCS: 99283

== ENCOUNTER 2020-12-31 11:38 | Emergency (ER) | payer MEDICAID, SELFPAY ==
--- NOTE | ~2020-12-31 | XR_ITS ---
EXAMINATION: XR CHEST CLINICAL INFORMATION: Chest pain COMPARISON: Chest radiographs 12/30/2020, 12/12/2020 TECHNIQUE: Portable upright AP view of the chest was obtained. FINDINGS: Patient is lordotically positioned. The lungs are clear and the vascularity is normal. There is no airspace consolidation, pneumothorax, pleural reaction, or effusion. The heart is normal in size and the hilar and mediastinal contours and visualized bony structures are unremarkable. XR/XR chest 1V IMPRESSION: Unremarkable examination.
[2020-12-31 11:41] VITALS: BP 125/83; BP 149/96; PULSE 74; PULSE 79; RESP 17; TEMP 36.6; O2SAT 94; BMI 32.3
--- NOTE | 2020-12-31 11:46 | ECG_ITS ---
Test Reason : CHEST PAIN Blood Pressure : / mmHG Vent. Rate : 076 BPM Atrial Rate : 076 BPM P-R Int : 132 ms QRS Dur : 084 ms QT Int : 414 ms P-R-T Axes : 041 019 026 degrees QTc Int : 465 ms Normal sinus rhythm Normal ECG When compared with ECG of 12-DEC-2020 20:59, No significant change was found Referred By: Nicole Cisse Electronically Signed By:ALEJANDRO MCCLELLAN
--- NOTE | 2020-12-31 11:47 | ED.CHESTPAIN ---
HPI - Chest Pain General Chief Complaint: Chest Pain Stated Complaint: CHEST PAIN Time Seen by Provider: 12/31/20 11:45 Source: patient and EMS Mode of arrival: EMS Limitations: no limitations History of Present Illness HPI narrative: 50 yo female with hx COPD substance abuse and mental health illness c/o chest pain starting at 10 worse with movement, mild dyspnea no nausea, hurts to touch it, denies mental health issues, given nitro and asa no relief MD complaint: chest pain Onset (ago): hour(s) (10 am today ) Timing of current episode: constant Onset: during rest Pain location: substernal Pain radiation: left arm Severity: moderate Quality: tightness Relieving factors: nothing Exacerbating factors: palpation and movement Associated symptoms: dyspnea Treatment prior to arrival: aspirin and nitroglycerin Related Data Previous Rx's Medication Instructions Recorded albuterol sulfate 2 puff INHALATION QID PRN #1 g 12/29/20 cholecalciferol (vitamin D3) 25 mcg PO DAILY #30 tab 12/29/20 docusate sodium 100 mg PO BID #60 cap 12/29/20 ferrous sulfate 324 mg PO DAILY #30 tab 12/29/20 lithium carbonate 300 mg PO BID #60 tab 12/29/20 omeprazole 20 mg PO DAILY@0630 #30 cap 12/29/20 quetiapine 1 tab PO BEDTIME PRN #10 tab 12/29/20 quetiapine 50 mg PO BEDTIME #30 tab 12/29/20 sertraline 100 mg PO DAILY #30 tab 12/29/20 trazodone 50 mg PO BEDTIME PRN #15 tab 12/29/20 trazodone 100 mg PO BEDTIME #30 tab 12/29/20 valacyclovir [Valtrex] 1,000 mg PO BID #60 tab 12/29/20 nitrofurantoin monohyd/m-cryst 100 mg PO BID 7 Days #14 cap 12/30/20 [Macrobid] permethrin 1 appl TOPICAL Q14D #60 g 12/31/20 Allergies Allergy/AdvReac Type Severity Reaction Status Date / Time aspirin [Aspirin] Allergy Severe HIVES,THROAT Verified 12/30/20 23:01 SWELLS bee pollen [BEE STINGS] Allergy Severe ANAPHYLAXIS Verified 12/30/20 23:01 diphenhydramine Allergy Severe hives, Verified 12/30/20 23:01 [From BENADRYL ALLERGY] throat swells Penicillins [PCN] Allergy Severe HIVES Verified 12/30/20 23:01 THROAT SWELLS Sulfa (Sulfonamide Allergy Intermediate HIVES Verified 12/30/20 23:01 Antibiotics) [SULFA (SULFONAMIDE ANTIBIOTICS)] tramadol [TRAMADOL] Allergy Intermediate ITCHING Verified 12/30/20 23:01 latex [LATEX] Allergy Unknown UNKNOWN Verified 12/30/20 23:01 penicillin G Allergy Unknown Unknown Verified 12/30/20 23:01 levofloxacin [From Levaquin] Allergy Hives Verified 12/30/20 23:01 bee stings Allergy Unknown Unknown Uncoded 12/12/20 20:36 [employer] Allergy Unknown Unknown Uncoded 12/12/20 20:36 sulfa drugs Allergy Unknown Unknown Uncoded 12/12/20 20:36 Review of Systems Review of Systems: Constitutional : No Weight loss, No Fever, No Chills ENT/Mouth : No sore throat, No Rhinorrhea Eyes: No Eye Pain, No Swelling Cardiovascular : pos Chest Pain, pos SOB, no Dyspnea on Exertion, No Orthopnea, No Edema, No Palpitations Respiratory : No Cough, No Sputum Gastrointestinal : pos Nausea, No Vomiting, No Diarrhea, No abdominal Pain, No Hematochezia, No Melena Genitourinary : No Dysuria, No Urinary Frequency Musculoskeletal : No joint pain, No Myalgias, No Joint Swelling Skin : No Skin Lesions, No rash Neuro : No Weakness, No Numbness, No Dizziness, No Headache Psych : No Anxiety/Panic, No Depression Heme/Lymph: No Bruising, No Lymphadenopathy Endocrine : No Polyuria, No Polydipsia All other systems reviewed and are negative COUNTS INCLUDE 234 BEDS AT THE [facility] Past Medical History Attestation statement: The following information was validated with the patient. Medical History Bipolar disorder Borderline personality disorder COPD (chronic obstructive pulmonary disease) Depression Herpes Tobacco use Surgical History History of ankle surgery History of appendectomy History of back surgery Hx of cholecystectomy Family History Family History Mother COPD (chronic obstructive pulmonary disease) Social History Social History Household Members: None Housing: Homeless Alcohol intake: unknown Smoking Status: Unknown if ever smoked Tobacco Type: Cigarette Packs Per Day: 1 Cigarettes Per Day: 20.0 Years Smoked: 36 Second Hand Smoke Exposure: Yes Substance Use Type: Crack/Cocaine Advance Directives: Yes Advance Directives Information Provided: Yes Advance Directives on File: No service: No Current occupational status: unemployed Sexual orientation: Straight/Heterosexual Physical Exam Vital Signs: Vital Signs: Last Vital Signs Temp 98 F 12/31/20 11:41 Pulse 79 12/31/20 11:41 Resp 17 12/31/20 11:41 BP 125/83 12/31/20 11:41 Pulse Ox 94 12/31/20 11:41 Body Mass Index 32.3 Appearance: Alert. Oriented X3. No acute distress. Eyes: Pupils equal, round and reactive to light. ENT: Pharynx normal. Neck: Normal inspection. Neck supple. CVS: Normal heart rate and rhythm. Pulses normal. chest wall ttp on left side reproduces pain Respiratory: No respiratory distress. Breath sounds normal. Abdomen: Soft and nontender. Skin: Skin warm and dry. Normal skin color. Normal skin turgor. Extremities: No lower extremity edema. No calf ttp Neuro: Oriented X 3. No motor deficit. No sensory deficit. Course Course Course Narrative: patient now stating she wants to leave, initial workup negative, she is alert and oriented can be DC at this time MDM - Chest Pain MDM Narrative Medical decision making narrative: 50 yo female with COPD, substance abuse recent cocaine use but not today c/o CWP that started at 10am, it seems MSK in nature at this time will need labs, CXR, troponin x 2, currently denies any complaints Lab Data Result diagrams: 12/31/20 12:16 12/31/20 12:16 Labs: Lab Results 12/31/20 12/31/20 12/31/20 Range/Units 12:16 12:16 12:16 WBC 7.6 (4.8-10.8) X10*3/uL RBC 4.45 (4.20-5.50) X10*6/uL Hgb 13.2 (12.0-16.0) g/dl Hct 41.3 (37-47) % MCV 92.8 (80-98) fL MCH 29.7 (27.0-33.0) pg MCHC 32.0 (31.0-35.0) g/dl RDW 12.8 (11.0-16.0) % Plt Count 261 (160-400) X10*3/uL MPV 10.1 (9.4-12.3) fL Immature Gran % (Auto) 0.1 (0.0-0.4) % Neut % (Auto) 58.4 (45-73) % Lymph % (Auto) 31.8 (20-40) % Tyler % (Auto) 7.2 (2-11) % Eos % (Auto) 1.3 (0-4) % Baso % (Auto) 1.2 (0-2) % Lymph # (Auto) 2.4 (1.2-4.9) X10*3/uL Tyler # (Auto) 0.6 (0.1-1.2) X10*3/uL Eos # (Auto) 0.1 (0.0-0.4) X10*3/uL Baso # (Auto) 0.1 (0.0-0.2) X10*3/uL Abs Immat Gran (auto) 0.01 (0.00-0.03) X10*3/uL Absolute Neuts (auto) 4.5 (2.0-8.3) X10*3/uL Absolute Nucleated RBC 0.000 (0.0-0.012) X10*3/uL Nucleated RBC % (auto) 0.0 (0.0-0.2) /100WBC Hold Blue Top SEE NOTE Sodium 140 (135-145) mmol/L Potassium 4.5 (3.3-5.1) mmol/L Chloride 105 (96-108) mmol/L Carbon Dioxide 25 (22-29) mmol/L Anion Gap 15 (12-20) BUN 9 (9-16) mg/dL Creatinine 0.73 (0.5-1.4) mg/dL Estim Creat Clear Calc 105.7 Estimated GFR > 60 Random Glucose 100 (60-115) mg/dL Calcium 9.5 D (8.4-10.2) mg/dL Magnesium 2.0 (1.6-2.6) mg/dL Total Bilirubin 0.5 (0.0-1.0) mg/dL Direct Bilirubin < 0.2 (0.0-0.5) mg/dL AST 17 (5-31) U/L ALT 28 (0-31) U/L Alkaline Phosphatase 80 (39-117) U/L Troponin I High Sens (<3.5-17.0) ng/L Total Protein 6.7 (6.5-8.0) g/dL Albumin 4.4 (3.5-5.0) g/dL Lipase 24 (8-78) U/L // Range/Units 12:16 WBC (4.8-10.8) X10*3/uL RBC (4.20-5.50) X10*6/uL Hgb (12.0-16.0) g/dl Hct (37-47) % MCV (80-98) fL MCH (27.0-33.0) pg MCHC (31.0-35.0) g/dl RDW (11.0-16.0) % Plt Count (160-400) X10*3/uL MPV (9.4-12.3) fL Immature Gran % (Auto) (0.0-0.4) % Neut % (Auto) (45-73) % Lymph % (Auto) (20-40) % Tyler % (Auto) (2-11) % Eos % (Auto) (0-4) % Baso % (Auto) (0-2) % Lymph # (Auto) (1.2-4.9) X10*3/uL Tyler # (Auto) (0.1-1.2) X10*3/uL Eos # (Auto) (0.0-0.4) X10*3/uL Baso # (Auto) (0.0-0.2) X10*3/uL Abs Immat Gran (auto) (0.00-0.03) X10*3/uL Absolute Neuts (auto) (2.0-8.3) X10*3/uL Absolute Nucleated RBC (0.0-0.012) X10*3/uL Nucleated RBC % (auto) (0.0-0.2) /100WBC Hold Blue Top Sodium (135-145) mmol/L Potassium (3.3-5.1) mmol/L Chloride (96-108) mmol/L Carbon Dioxide (22-29) mmol/L Anion Gap (12-20) BUN (9-16) mg/dL Creatinine (0.5-1.4) mg/dL Estim Creat Clear Calc Estimated GFR Random Glucose (60-115) mg/dL Calcium (8.4-10.2) mg/dL Magnesium (1.6-2.6) mg/dL Total Bilirubin (0.0-1.0) mg/dL Direct Bilirubin (0.0-0.5) mg/dL AST (5-31) U/L ALT (0-31) U/L Alkaline Phosphatase (39-117) U/L Troponin I High Sens < 3.5 (<3.5-17.0) ng/L Total Protein (6.5-8.0) g/dL Albumin (3.5-5.0) g/dL Lipase (8-78) U/L ECG Data ECG #1: Attestation: I personally reviewed and interpreted this ECG as follows: ECG interpretation date: 12/31/20 ECG interpretation time: 12:13 Interpretation: Rate: 76 Rhythm: NSR [place]: normal Normal P waves. Normal GABBIE. Normal QRS complex. ST T wave : normal no KYRIE qTC: normal prior studies: no acute ischemia The study has been interpreted contemporaneously by me. . Discharge Plan Discharge Clinical Impression: Atypical chest pain Patient Disposition: Home, Self-Care Instructions: Chest Pain (ED) Additional Instructions: return to ED for any worsening symptoms or concerns Prescriptions: No Action lithium carbonate 300 mg Tablet Extended Release 300 mg PO BID Qty: 60 RF: 0 trazodone 100 mg Tablet 100 mg PO BEDTIME Qty: 30 RF: 0 docusate sodium 100 mg Capsule 100 mg PO BID Qty: 60 RF: 0 omeprazole 20 mg Capsule,Delayed Release(Dr/Ec) 20 mg PO DAILY@0630 Qty: 30 RF: 0 quetiapine 50 mg Tablet 50 mg PO BEDTIME Qty: 30 RF: 0 ferrous sulfate 324 mg (65 mg iron) Tablet,Delayed Release (Dr/Ec) 324 mg PO DAILY Qty: 30 RF: 0 cholecalciferol (vitamin D3) 25 mcg (1,000 unit) Tablet 25 mcg PO DAILY Qty: 30 RF: 0 trazodone 50 mg Tablet 50 mg PO BEDTIME PRN (Reason: Insomnia) Qty: 15 RF: 1 valacyclovir [Valtrex] 1 gram Tablet 1,000 mg PO BID Qty: 60 RF: 0 sertraline 100 mg Tablet 100 mg PO DAILY Qty: 30 RF: 0 albuterol sulfate 90 mcg/actuation HFA aerosol inhaler 2 puff inhalation QID PRN (Reason: wheezing) Qty: 1 RF: 0 quetiapine 50 mg tablet 1 tab PO BEDTIME PRN (Reason: Insomnia) Qty: 10 RF: 0 nitrofurantoin monohyd/m-cryst [Macrobid] 100 mg capsule 100 mg PO BID 7 Days Qty: 14 RF: 0 permethrin 5 % cream 1 appl topical Q14D Qty: 60 RF: 2 Referrals: Physician,None [Primary Care Provider] - 2 days
[2020-12-31 12:21] LABS: MANUAL DIFF FLAG NO
[2020-12-31 12:27] LABS: Basophils Absolute Auto 0.1 X10*3/uL (0.0-0.2); Basophils Percent Auto 1.2 % (0-2); Eosinophils Absolute Auto 0.1 X10*3/uL (0.0-0.4); Eosinophils Percent Auto 1.3 % (0-4); Hematocrit 41.3 % (37-47); Hemoglobin 13.2 g/dl (12.0-16.0); Imm Gran Abs Auto 0.01 X10*3/uL (0.00-0.03); Imm Gran Pct Auto 0.1 % (0.0-0.4); Lymphocytes Absolute Auto 2.4 X10*3/uL (1.2-4.9); Lymphocytes Percent Auto 31.8 % (20-40); Mean Corpuscular Hemoglobin 29.7 pg (27.0-33.0); Mean Corpuscular Volume 92.8 fL (80-98); Mean Platelet Volume 10.1 fL (9.4-12.3); Monocytes Absolute Auto 0.6 X10*3/uL (0.1-1.2); Monocytes Percent Auto 7.2 % (2-11); Neutrophils Absolute Auto 4.5 X10*3/uL (2.0-8.3); Neutrophils Percent Auto 58.4 % (45-73); Platelet Count 261 X10*3/uL (160-400); Red Blood Count 4.45 X10*6/uL (4.20-5.50); Red Cell Distribution Width 12.8 % (11.0-16.0); White Blood Count 7.6 X10*3/uL (4.8-10.8)
[2020-12-31 12:58] LABS: Troponin-I High Sensitivity < 3.5 ng/L (<3.5-17.0)
[2020-12-31 13:01] LABS: Alanine Aminotransferase 28 U/L (0-31); Albumin Level 4.4 g/dL (3.5-5.0); Alkaline Phosphatase 80 U/L (39-117); Anion Gap 15 (12-20); Aspartate Amino Transferase 17 U/L (5-31); Bilirubin Direct < 0.2 mg/dL (0.0-0.5); Bilirubin Total 0.5 mg/dL (0.0-1.0); Blood Urea Nitrogen 9 mg/dL (9-16); Calcium 9.5 mg/dL (8.4-10.2); Carbon Dioxide 25 mmol/L (22-29); Chloride 105 mmol/L (96-108); Creatinine Clr Calc Pharmacy 105.7; Estimated Glomerular Filt Rate > 60; Glucose Random 100 mg/dL (60-115); Lipase 24 U/L (8-78); Potassium 4.5 mmol/L (3.3-5.1); Sodium 140 mmol/L (135-145); Total Protein 6.7 g/dL (6.5-8.0)
[2020-12-31 14:30] VITALS: BP 144/70; PULSE 76; RESP 17; O2SAT 98
== END 2020-12-31 14:32 | disposition home or self-care (01) ==
PROVIDERS: Emergency Provider Emergency Medicine
DX: R07.9 Chest pain, unspecified (principal); R06.00 Dyspnea, unspecified; M79.602 Pain in left arm; F14.90 Cocaine use, unspecified, uncomplicated; F17.210 Nicotine dependence, cigarettes, uncomplicated; Z71.6 Tobacco abuse counseling; Z79.899 Other long term (current) drug therapy
CPT/HCPCS: 36415; 71045; 80048; 80076; 83690; 83735; 84484; 85025; 93005; 99283

== ENCOUNTER 2021-01-12 11:47 | Inpatient (IN) | payer OTHER, SELFPAY ==
--- NOTE | ~2021-01-12 | XR_ITS ---
EXAMINATION: XR CHEST CLINICAL INFORMATION: SOB COMPARISON: None TECHNIQUE: 2 views of the chest were obtained. FINDINGS: No significant abnormality is noted involving the heart, lungs, mediastinum, bony thorax or soft tissues. XR/XR chest 2V IMPRESSION: Unremarkable chest exam.
[2021-01-12 12:09] VITALS: BP 151/71; PULSE 105; RESP 20; TEMP 36.8; O2SAT 96; BMI 33.9
[2021-01-12 12:15] VITALS: BP 151/71; PULSE 105; RESP 20; TEMP 36.8; O2SAT 96
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
[2021-01-12 12:35] LABS: Glucose Urine UA NEG (NEG); Leukocyte Esterase Urine NEG (NEG); Nitrite Urine NEG (NEG); PH 6.5 (5.0-8.0); Urine Blood NEG (NEG); Urine Ketones NEG (NEG); Urine Protein NEG (NEG-TRACE)
[2021-01-12 12:37] LABS: Appearance Urine CLOUDY; Color Urine YELLOW
[2021-01-12 12:38] LABS: UPreg QC Valid YES; Urine Pregnancy NEGATIVE (NEGATIVE)
[2021-01-12] MEDS: Albuterol Sulfate (0.083%) 2.5 MG/3 ML VIAL.NEB INHALE (12:41)
[2021-01-12] MEDS: Albuterol/Iprat 2.5/0.5MG 3 ML AMPUL.NEB INHALE (12:42)
[2021-01-12] MEDS: predniSONE 20 MG TABLET 40 MG PO (12:49)
[2021-01-12 12:54] LABS: Amphetamine Screen Urine Not Detected (Not Detect); Barbiturates, Urine Not Detected (Not Detect); Benzodiazepines Screen Urine Not Detected (Not Detect); Cannabinoid Screen Urine Not Detected (Not Detect); Cocaine Screen Urine Not Detected (Not Detect); Opiate Screen Urine Not Detected (Not Detect); Phencyclidine Screen Urine Not Detected (Not Detect)
[2021-01-12 12:59] LABS: MANUAL DIFF FLAG NO
[2021-01-12 13:00] LABS: Basophils Absolute Auto 0.1 X10*3/uL (0.0-0.2); Basophils Percent Auto 0.8 % (0-2); Eosinophils Absolute Auto 0.1 X10*3/uL (0.0-0.4); Eosinophils Percent Auto 1.4 % (0-4); Hematocrit 42.9 % (37-47); Hemoglobin 13.8 g/dl (12.0-16.0); Imm Gran Abs Auto 0.04 X10*3/uL (0.00-0.03); Imm Gran Pct Auto 0.5 % (0.0-0.4); Lymphocytes Absolute Auto 2.8 X10*3/uL (1.2-4.9); Lymphocytes Percent Auto 31.3 % (20-40); Mean Corpuscular HGB Conc 32.2 g/dl (31.0-35.0); Mean Corpuscular Volume 93.3 fL (80-98); Monocytes Absolute Auto 0.6 X10*3/uL (0.1-1.2); Monocytes Percent Auto 6.4 % (2-11); Neutrophils Absolute Auto 5.2 X10*3/uL (2.0-8.3); Neutrophils Percent Auto 59.6 % (45-73); Platelet Count 336 X10*3/uL (160-400); Red Cell Distribution Width 12.7 % (11.0-16.0); White Blood Count 8.8 X10*3/uL (4.8-10.8)
[2021-01-12 13:15] LABS: COVID-19 Test Negative (Negative)
[2021-01-12 13:23] LABS: Anion Gap 16 (12-20); Blood Urea Nitrogen 13 mg/dL (9-16); Calcium 9.3 mg/dL (8.4-10.2); Carbon Dioxide 26 mmol/L (22-29); Chloride 103 mmol/L (96-108); Creatinine Clr Calc Pharmacy 105.7; Estimated Glomerular Filt Rate > 60; Glucose Random 90 mg/dL (60-115); Potassium 4.6 mmol/L (3.3-5.1); Sodium 140 mmol/L (135-145)
--- NOTE | 2021-01-12 13:47 | PC.NURSE ---
PIETER faxed and called, verified with majo
[2021-01-12 17:08] VITALS: BP 116/80; PULSE 106; RESP 18; TEMP 36.8; O2SAT 94
--- NOTE | 2021-01-12 17:12 | PC.NURSE ---
[facility] at bedside for eval.
[2021-01-12 23:34] VITALS: BP 116/74; PULSE 80; RESP 20; TEMP 37.1; O2SAT 98
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
[2021-01-13 06:00] VITALS: BP 110/58; PULSE 79; RESP 18; TEMP 36.8; O2SAT 91
[2021-01-13] MEDS: Omeprazole 20 MG CAPSULE.DR PO (06:12)
--- NOTE | 2021-01-13 07:12 | PC.NURSE ---
Report received. PT currently sleeping, respirations even and unlabored, in no apaprent distress. PT is inpatient bedsearch.
[2021-01-13] MEDS: Lithium Carbonate ER 300 MG TABLET.ER PO ×2 (08:30→21:19)
[2021-01-13] MEDS: Sertraline HCL 50 MG TABLET PO (08:30)
[2021-01-13] MEDS: Cholecalciferol (Vitamin D3) 25 MCG TABLET PO (08:30)
[2021-01-13] MEDS: Ferrous Sulfate 324 MG TABLET.DR PO (08:30)
[2021-01-13] MEDS: Nicotine 21 MG PATCH.TD24 TRANSDERMA (08:30)
[2021-01-13] MEDS: Docusate Sodium 100 MG CAPSULE PO ×2 (08:30→21:20)
[2021-01-13] MEDS: Albuterol Sulfate 90 MCG 8 GM INHALER 2 PUFF INHALE (09:00)
[2021-01-13 09:42] VITALS: BP 123/77; PULSE 88; RESP 16; TEMP 36.4; O2SAT 94
[2021-01-13] MEDS: Acetaminophen 325 MG TABLET 650 MG PO (12:49)
--- NOTE | 2021-01-13 12:57 | PC.NURSE ---
medicated for knee/ leg pain
[2021-01-13] MEDS: Cyclobenzaprine HCl 5 MG TABLET PO (15:42)
[2021-01-13 16:43] VITALS: BP 116/66; PULSE 84; RESP 18; TEMP 36.4; O2SAT 94
--- NOTE | 2021-01-13 17:34 | PC.NURSE ---
PT states she feels like her sugar is high, states she has occasionally checked it at home and it has been high. Verbal order from Nathan Laurent to check POC.
[2021-01-13 17:40] LABS: Glucose, Whole Blood 137 mg/dL (60-115)
[2021-01-13 18:30] VITALS: BP 112/74; PULSE 91; TEMP 36
[2021-01-13] MEDS: QUEtiapine Fumarate 100 MG TABLET PO (21:19)
[2021-01-13] MEDS: traZODone HCL 100 MG TABLET PO (21:20)
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
[2021-01-14 06:05] VITALS: BP 110/62; PULSE 70; RESP 20; TEMP 36.9; O2SAT 95
[2021-01-14] MEDS: Omeprazole 20 MG CAPSULE.DR PO (06:40)
[2021-01-14] MEDS: Sertraline HCL 50 MG TABLET PO (08:32)
[2021-01-14] MEDS: Lithium Carbonate ER 300 MG TABLET.ER PO ×2 (08:32→20:48)
[2021-01-14] MEDS: Cholecalciferol (Vitamin D3) 25 MCG TABLET PO (08:32)
[2021-01-14] MEDS: Ferrous Sulfate 324 MG TABLET.DR PO (08:32)
[2021-01-14] MEDS: Docusate Sodium 100 MG CAPSULE PO ×2 (08:32→20:48)
[2021-01-14] MEDS: Nicotine 21 MG PATCH.TD24 TRANSDERMA (08:33)
[2021-01-14] MEDS: Acetaminophen 325 MG TABLET 650 MG PO ×2 (10:44→18:23)
[2021-01-14 18:00] VITALS: BP 129/82; PULSE 80; RESP 18; TEMP 36.7; O2SAT 94
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
[2021-01-14] MEDS: OXcarbazepine 300 MG TABLET 600 MG PO (20:48)
[2021-01-14] MEDS: QUEtiapine Fumarate 25 MG TABLET PO (20:49)
[2021-01-14] MEDS: traZODone HCL 100 MG TABLET PO (20:49)
[2021-01-14] MEDS: QUEtiapine Fumarate 100 MG TABLET PO (20:49)
[2021-01-15 06:30] VITALS: BP 106/54; PULSE 67; RESP 18; TEMP 36.8; O2SAT 97
[2021-01-15 07:00] VITALS: BMI 39.1
--- NOTE | 2021-01-15 08:26 | HO.PSYCHPN ---
Subjective Subjective Date of Service: 01/19/21 Reason For Visit: SI Subjective Notes: Conditional Voluntary Interim History: Pt is mostly calm, but observed getting easily agitated, threatening when she feels disrespected. She is able to quickly calm down but this is due to intervention of professional staff in the unit. She denies SI/HI. She reports fair sleep. She started trileptal, no side effects noted. MSE Appearance: casually groomed, fair hygiene, in NAD Behavior: calm, cooperative Psychomotor: some agitation noted after Speech: clear, normal rate/rhythm/volume, spontaneous TP: linear TC: no signs of psychosis, future oriented Mood: good Affect:congruent, not labile but pt easily irritable AH/VH:denies Delusions:denies Insight/judgment:poor x 2. Memory/cog: alert, oriented x 3. grossly intact to conversational testing. Review of Systems Review of Systems Denies any recent fever chills or decrease in appetite respiratory denies any shortness of breath coverage production cardiovascular no chest pain gastrointestinal denies any dysphagia abdominal pain nausea vomiting or diarrhea genitourinary denies any dysuria frequency or hematuria musculoskeletal See HPI neuropsych denies any weakness or seizures all other systems reviewed are negative Yes all other systems are reviewed and are negative Diagnostics Vital Signs (24Hr): Vital Signs - 24 hr 01/18/21 15:56 01/19/21 06:10 Temperature 98.0 F 98.5 F Pulse Rate 78 67 Respiratory Rate 18 Blood Pressure 131/69 104/59 L Pulse Oximetry 94 Body Mass Index 39.1 Labs Results: 01/12/21 12:46 01/12/21 12:46 Labs: Laboratory Results - last 48 hr 01/18/21 07:33 [place] 0.39 L Imaging Radiology Impressions: ITS Impressions Chest X-Ray 01/12/21 12:23 IMPRESSION: Unremarkable chest exam. Medications Medications Current Medications Generic Name Dose Route Start Last Admin Trade Name Freq PRN Reason Stop Dose Admin Acetaminophen 650 mg 01/12/21 21:14 01/18/21 23:00 Acetaminophen 325 Mg Tablet PO 650 mg Q6H PRN Administration mild pain Al Hydroxide/Mg Hydroxide 30 ml 01/13/21 16:54 Magnesium Hydrox/Alum Hydrox 30 Ml Oral.Susp PO Q6H PRN Heartburn/Nausea Albuterol Sulfate 2 puff 01/12/21 21:14 01/13/21 09:00 Albuterol Sulfate 90 Mcg 8 Gm Inhaler INHALE 2 puff QID PRN Administration wheezing Albuterol/Ipratropium 3 ml 01/13/21 09:15 Albuterol/Iprat 2.5/0.5mg 3 Ml Ampul.Neb INHALE Q4H PRN Wheezing Docusate Sodium 100 mg 01/13/21 09:00 01/19/21 08:22 Docusate Sodium 100 Mg Capsule PO Not Given BID TEJA Ferrous Sulfate 324 mg 01/13/21 09:00 01/19/21 08:21 Ferrous Sulfate 324 Mg Tablet. PO 324 mg DAILY TEJA Administration Fluticasone/Vilanterol 1 puff 01/15/21 08:00 01/18/21 08:45 Fluticasone/Vilanterol 100/25 Blst.W.Dev INHALE 1 puff RDAILY TEJA Administration Hydroxyzine HCl 25 mg 01/13/21 16:54 Hydroxyzine Hcl 25 Mg Tablet PO BEDTIME PRN Anxiety Ibuprofen 800 mg 01/18/21 17:00 01/19/21 08:21 Ibuprofen 800 Mg Tablet PO 800 mg TIDWM TEJA Administration [place] Carbonate 600 mg 01/18/21 21:00 01/19/21 08:21 [place] Carbonate Er 300 Mg Tablet.Er PO 600 mg BID TEJA Administration Magnesium Hydroxide 30 ml 01/13/21 16:54 Milk Of Magnesia 30 Ml Oral.Susp PO DAILY PRN Constipation Nicotine 21 mg 01/13/21 09:00 01/18/21 09:01 Nicotine 21 Mg Patch.Td24 TRANSDERMA 21 mg DAILY TEJA Administration Omeprazole 20 mg 01/13/21 06:30 01/19/21 06:22 Omeprazole 20 Mg Capsule. PO 20 mg DAILY@0630 TEJA Administration Quetiapine Fumarate 50 mg 01/16/21 21:00 01/18/21 23:00 Quetiapine Fumarate 50 Mg Tablet PO 50 mg BEDTIME TEJA Administration Quetiapine Fumarate 25 mg 01/17/21 18:03 Quetiapine Fumarate 25 Mg Tablet PO Q4H PRN Agitation Sertraline HCl 50 mg 01/13/21 09:00 01/19/21 08:22 Sertraline Hcl 50 Mg Tablet PO 50 mg DAILY TEJA Administration Tiotropium [place] 1 puff 01/13/21 08:00 01/18/21 08:49 Tiotropium [place] 18 Mcg Cap.W.Dev INHALE 1 puff RDAILY TEJA Administration Trazodone HCl 100 mg 01/13/21 21:00 01/18/21 23:00 Trazodone Hcl 100 Mg Tablet PO 100 mg BEDTIME TEJA Administration Trazodone HCl 50 mg 01/13/21 16:54 Trazodone Hcl 50 Mg Tablet PO BEDTIME PRN Insomnia Valacyclovir HCl 1,000 mg 01/13/21 09:00 01/19/21 08:21 Valacycyclovir Hcl 1,000 Mg Tablet PO 1,000 mg BID TEJA Administration Vitamin D 25 mcg 01/13/21 09:00 01/19/21 08:21 Cholecalciferol (Vitamin D3) 25 Mcg Tablet PO 25 mcg DAILY TEJA Administration Allergies Allergies Allergy/AdvReac Type Severity Reaction Status Date / Time aspirin [Aspirin] Allergy Severe HIVES,THROAT Verified 12/30/20 23:01 SWELLS bee pollen [BEE STINGS] Allergy Severe ANAPHYLAXIS Verified 12/30/20 23:01 diphenhydramine Allergy Severe hives, Verified 12/30/20 23:01 [From BENADRYL ALLERGY] throat swells Penicillins [PCN] Allergy Severe HIVES Verified 12/30/20 23:01 THROAT SWELLS Sulfa (Sulfonamide Allergy Intermediate HIVES Verified 12/30/20 23:01 Antibiotics) [SULFA (SULFONAMIDE ANTIBIOTICS)] tramadol [TRAMADOL] Allergy Intermediate ITCHING Verified 12/30/20 23:01 latex [LATEX] Allergy Unknown UNKNOWN Verified 12/30/20 23:01 penicillin G Allergy Unknown Unknown Verified 12/30/20 23:01 levofloxacin [From Levaquin] Allergy Hives Verified 12/30/20 23:01 bee stings Allergy Unknown Unknown Uncoded 12/12/20 20:36 DairyCare Allergy Unknown Unknown Uncoded 12/12/20 20:36 sulfa drugs Allergy Unknown Unknown Uncoded 12/12/20 20:36 Assessment & Plan Assessment & Plan (1) Borderline personality disorder: Status: Acute Code(s): F60.3 - Borderline personality disorder (2) Intermittent explosive disorder: Status: Acute Code(s): F63.81 - Intermittent explosive disorder Assessment and Plan: Pt does not appear particularly depressed. However, pt is impulsive ,explosive and suicidal statements appears result of her low frustration tolerance and inability to self regulate. 1. Continue [place]- may consider adjusting dose 2. Start trileptal 3. Continue Seroquel 4. Aftercare planning. Greater than 50% of the session was spent on counseling and/or coordination of care Reason for contiued inpatient stay Substantial Risk for: harm to self
[2021-01-15] MEDS: Sertraline HCL 50 MG TABLET PO (08:27)
[2021-01-15] MEDS: OXcarbazepine 300 MG TABLET 600 MG PO ×2 (08:27→20:40)
[2021-01-15] MEDS: Omeprazole 20 MG CAPSULE.DR PO (08:27)
[2021-01-15] MEDS: Cholecalciferol (Vitamin D3) 25 MCG TABLET PO (08:27)
[2021-01-15] MEDS: Ferrous Sulfate 324 MG TABLET.DR PO (08:27)
[2021-01-15] MEDS: Lithium Carbonate ER 300 MG TABLET.ER PO ×2 (08:27→20:41)
[2021-01-15] MEDS: Docusate Sodium 100 MG CAPSULE PO (08:27)
[2021-01-15] MEDS: Nicotine 21 MG PATCH.TD24 TRANSDERMA (08:28)
[2021-01-15] MEDS: Fluticasone/Vilanterol 100/25 BLST.W.DEV 1 PUFF INHALE (09:33)
[2021-01-15 17:22] VITALS: BP 135/67; PULSE 75; RESP 18; TEMP 35.9
[2021-01-15] MEDS: traZODone HCL 100 MG TABLET PO (20:40)
[2021-01-15] MEDS: QUEtiapine Fumarate 50 MG TABLET 150 MG PO (20:40)
[2021-01-16 06:00] VITALS: BP 96/55; PULSE 72; RESP 16; TEMP 36.9; O2SAT 93
[2021-01-16] MEDS: Omeprazole 20 MG CAPSULE.DR PO (06:52)
--- NOTE | 2021-01-16 08:30 | HO.PSYCHPN ---
Subjective Subjective Date of Service: 01/19/21 Reason For Visit: SI Interim History: Pt is very dizzy and unsteady on feet. Last night she had higher dose of seroquel. She also reports jerk-like movement of hands, appears to be myoclonus from either lithium or trileptal. Pt states she did not experience this with lithium, therefore, suspect it's trileptal. Some involuntary jerk-like movement noted while meeting with pt. Otherwise, pt reports sleeping better. She is eating well. She has been visible in the unit and attends assigned groups. No behavioral concerns. Review of Systems Review of Systems Denies any recent fever chills or decrease in appetite respiratory denies any shortness of breath coverage production cardiovascular no chest pain gastrointestinal denies any dysphagia abdominal pain nausea vomiting or diarrhea genitourinary denies any dysuria frequency or hematuria musculoskeletal See HPI neuropsych denies any weakness or seizures all other systems reviewed are negative Yes all other systems are reviewed and are negative Mental Status Exam Mental Status Exam Narrative: Appearance: [place] woman, casually groomed, fair hygiene, in NAD Behavior: calm, cooperative Psychomotor: no agitation or retardation noted Speech: clear, normal rate/rhythm/volume, spontaneous TP: linear TC: no signs of psychosis, future oriented Mood: better Affect:euthymic, non labile SI: none HI: none AH/VH:none Delusions:none Insight/judgment:poor x 2. Memory/cog: alert, oriented x 3. grossly intact to conversational testing. Diagnostics Vital Signs (24Hr): Vital Signs - 24 hr 01/18/21 15:56 01/19/21 06:10 Temperature 98.0 F 98.5 F Pulse Rate 78 67 Respiratory Rate 18 Blood Pressure 131/69 104/59 L Pulse Oximetry 94 Body Mass Index 39.1 Labs Results: 01/12/21 12:46 01/12/21 12:46 Labs: Laboratory Results - last 48 hr 01/18/21 07:33 [place] 0.39 L Imaging Radiology Impressions: ITS Impressions Chest X-Ray 01/12/21 12:23 IMPRESSION: Unremarkable chest exam. Medications Medications Current Medications Generic Name Dose Route Start Last Admin Trade Name Freq PRN Reason Stop Dose Admin Acetaminophen 650 mg 01/12/21 21:14 01/18/21 23:00 Acetaminophen 325 Mg Tablet PO 650 mg Q6H PRN Administration mild pain Al Hydroxide/Mg Hydroxide 30 ml 01/13/21 16:54 Magnesium Hydrox/Alum Hydrox 30 Ml Oral.Susp PO Q6H PRN Heartburn/Nausea Albuterol Sulfate 2 puff 01/12/21 21:14 01/13/21 09:00 Albuterol Sulfate 90 Mcg 8 Gm Inhaler INHALE 2 puff QID PRN Administration wheezing Albuterol/Ipratropium 3 ml 01/13/21 09:15 Albuterol/Iprat 2.5/0.5mg 3 Ml Ampul.Neb INHALE Q4H PRN Wheezing Docusate Sodium 100 mg 01/13/21 09:00 01/19/21 08:22 Docusate Sodium 100 Mg Capsule PO Not Given BID TEJA Ferrous Sulfate 324 mg 01/13/21 09:00 01/19/21 08:21 Ferrous Sulfate 324 Mg Tablet. PO 324 mg DAILY TEJA Administration Fluticasone/Vilanterol 1 puff 01/15/21 08:00 01/18/21 08:45 Fluticasone/Vilanterol 100/25 Blst.W.Dev INHALE 1 puff RDAILY TEJA Administration Hydroxyzine HCl 25 mg 01/13/21 16:54 Hydroxyzine Hcl 25 Mg Tablet PO BEDTIME PRN Anxiety Ibuprofen 800 mg 01/18/21 17:00 01/19/21 08:21 Ibuprofen 800 Mg Tablet PO 800 mg TIDWM TEJA Administration [place] Carbonate 600 mg 01/18/21 21:00 01/19/21 08:21 [place] Carbonate Er 300 Mg Tablet.Er PO 600 mg BID TEJA Administration Magnesium Hydroxide 30 ml 01/13/21 16:54 Milk Of Magnesia 30 Ml Oral.Susp PO DAILY PRN Constipation Nicotine 21 mg 01/13/21 09:00 01/18/21 09:01 Nicotine 21 Mg Patch.Td24 TRANSDERMA 21 mg DAILY TEJA Administration Omeprazole 20 mg 01/13/21 06:30 01/19/21 06:22 Omeprazole 20 Mg Capsule. PO 20 mg DAILY@0630 TEJA Administration Quetiapine Fumarate 50 mg 01/16/21 21:00 01/18/21 23:00 Quetiapine Fumarate 50 Mg Tablet PO 50 mg BEDTIME TEJA Administration Quetiapine Fumarate 25 mg 01/17/21 18:03 Quetiapine Fumarate 25 Mg Tablet PO Q4H PRN Agitation Sertraline HCl 50 mg 01/13/21 09:00 01/19/21 08:22 Sertraline Hcl 50 Mg Tablet PO 50 mg DAILY TEJA Administration Tiotropium [place] 1 puff 01/13/21 08:00 01/18/21 08:49 Tiotropium [place] 18 Mcg Cap.W.Dev INHALE 1 puff RDAILY TEJA Administration Trazodone HCl 100 mg 01/13/21 21:00 01/18/21 23:00 Trazodone Hcl 100 Mg Tablet PO 100 mg BEDTIME TEJA Administration Trazodone HCl 50 mg 01/13/21 16:54 Trazodone Hcl 50 Mg Tablet PO BEDTIME PRN Insomnia Valacyclovir HCl 1,000 mg 01/13/21 09:00 01/19/21 08:21 Valacycyclovir Hcl 1,000 Mg Tablet PO 1,000 mg BID TEJA Administration Vitamin D 25 mcg 01/13/21 09:00 01/19/21 08:21 Cholecalciferol (Vitamin D3) 25 Mcg Tablet PO 25 mcg DAILY TEJA Administration Allergies Allergies Allergy/AdvReac Type Severity Reaction Status Date / Time aspirin [Aspirin] Allergy Severe HIVES,THROAT Verified 12/30/20 23:01 SWELLS bee pollen [BEE STINGS] Allergy Severe ANAPHYLAXIS Verified 12/30/20 23:01 diphenhydramine Allergy Severe hives, Verified 12/30/20 23:01 [From BENADRYL ALLERGY] throat swells Penicillins [PCN] Allergy Severe HIVES Verified 12/30/20 23:01 THROAT SWELLS Sulfa (Sulfonamide Allergy Intermediate HIVES Verified 12/30/20 23:01 Antibiotics) [SULFA (SULFONAMIDE ANTIBIOTICS)] tramadol [TRAMADOL] Allergy Intermediate ITCHING Verified 12/30/20 23:01 latex [LATEX] Allergy Unknown UNKNOWN Verified 12/30/20 23:01 penicillin G Allergy Unknown Unknown Verified 12/30/20 23:01 levofloxacin [From Levaquin] Allergy Hives Verified 12/30/20 23:01 bee stings Allergy Unknown Unknown Uncoded 12/12/20 20:36 DairyCare Allergy Unknown Unknown Uncoded 12/12/20 20:36 sulfa drugs Allergy Unknown Unknown Uncoded 12/12/20 20:36 Assessment & Plan Assessment & Plan (1) Borderline personality disorder: Status: Acute Code(s): F60.3 - Borderline personality disorder (2) Intermittent explosive disorder: Status: Acute Code(s): F63.81 - Intermittent explosive disorder Assessment and Plan: Pt does not appear particularly depressed. However, pt is impulsive ,explosive and suicidal statements appears result of her low frustration tolerance and inability to self regulate. 1. Continue [place]- may consider adjusting dose 2. D/C trileptal due to myoclonus 3. Continue Seroquel 4. Aftercare planning. Greater than 50% of the session was spent on counseling and/or coordination of care Reason for contiued inpatient stay Substantial Risk for: harm to self
[2021-01-16] MEDS: Fluticasone/Vilanterol 100/25 BLST.W.DEV 1 PUFF INHALE (08:39)
[2021-01-16] MEDS: Docusate Sodium 100 MG CAPSULE PO ×2 (08:42→22:24)
[2021-01-16] MEDS: Cholecalciferol (Vitamin D3) 25 MCG TABLET PO (08:42)
[2021-01-16] MEDS: OXcarbazepine 300 MG TABLET 600 MG PO (08:43)
[2021-01-16] MEDS: Ferrous Sulfate 324 MG TABLET.DR PO (08:43)
[2021-01-16] MEDS: Sertraline HCL 50 MG TABLET PO (08:43)
[2021-01-16] MEDS: Lithium Carbonate ER 300 MG TABLET.ER PO ×2 (08:43→22:24)
[2021-01-16] MEDS: Nicotine 21 MG PATCH.TD24 TRANSDERMA (08:44)
[2021-01-16 16:30] VITALS: BP 126/78; PULSE 85; TEMP 36.8
--- NOTE | 2021-01-16 18:11 | HO.PSYCHPN ---
Subjective Subjective Date of Service: 01/20/21 Reason For Visit: SI Subjective Notes: Conditional Voluntary Review of Systems Review of Systems All other systems are reviewed and are negative Constitutional: Reports as per HPI and Reports no additional constitutional complaints Eyes: Reports as per HPI and Reports no additional eye complaints Reports system reviewed and no additional complaints, except as documented Cardiovascular: Reports as per HPI and Reports no additional cardiovascular complaints Respiratory: Reports as per HPI and Reports no additional respiratory complaints Gastrointestinal: Reports as per HPI and Reports no additional gastrointestinal complaints Genitourinary: Reports no additional female genitourinary complaints Musculoskeletal: Reports no additional musculoskeletal complaints Skin/Breast: Reports system reviewed and no additional complaints, except as docu Psychiatric: Reports no additional psychiatric complaints Endocrine: Reports no additional endocrine complaints Hematologic/Lymphatic: Reports no additional hematologic/lymphatic complaints Allergic/Immunologic: Reports no additional allergic/immunologic complaints Reports system reviewed and no additional complaints, except as documented and Reports Abnormal speech present Mental Status Exam Mental Status Exam Patient Appearance: Appropriate Patient Orientation: Person, Place, Time and Situation Level of Consciousness: Awake and Alert Patient Behavior: Appropriate, Talkative and Anxious Mood Description: Happy and Appropriate Affect Description: Calm Patient Cognition Impaired: No Ability to Follow Directions: Good Speech Pattern: Clear and Spontaneous Speech Memory Description: Intact Hallucinations: None Delusions: Not Present Thought Process: Intact Thought Content: positive for Suicidal Ideation (denies SI plan or intent) Judgement: Good Diagnostics Vital Signs (24Hr): Vital Signs - 24 hr 01/16/21 06:00 01/16/21 16:30 Temperature 98.4 F 98.3 F Pulse Rate 72 85 Respiratory Rate 16 Blood Pressure 96/55 L 126/78 Pulse Oximetry 93 Body Mass Index 39.1 Labs Results: 01/12/21 12:46 01/12/21 12:46 Imaging Radiology Impressions: ITS Impressions Chest X-Ray 01/12/21 12:23 IMPRESSION: Unremarkable chest exam. Medications Medications Current Medications Generic Name Dose Route Start Last Admin Trade Name Freq PRN Reason Stop Dose Admin Acetaminophen 650 mg 01/12/21 21:14 01/14/21 18:23 Acetaminophen 325 Mg Tablet PO 650 mg Q6H PRN Administration mild pain Al Hydroxide/Mg Hydroxide 30 ml 01/13/21 16:54 Magnesium Hydrox/Alum Hydrox 30 Ml Oral.Susp PO Q6H PRN Heartburn/Nausea Albuterol Sulfate 2 puff 01/12/21 21:14 01/13/21 09:00 Albuterol Sulfate 90 Mcg 8 Gm Inhaler INHALE 2 puff QID PRN Administration wheezing Albuterol/Ipratropium 3 ml 01/13/21 09:15 Albuterol/Iprat 2.5/0.5mg 3 Ml Ampul.Neb INHALE Q4H PRN Wheezing Docusate Sodium 100 mg 01/13/21 09:00 01/16/21 08:42 Docusate Sodium 100 Mg Capsule PO 100 mg BID TEJA Administration Ferrous Sulfate 324 mg 01/13/21 09:00 01/16/21 08:43 Ferrous Sulfate 324 Mg Tablet. PO 324 mg DAILY TEJA Administration Fluticasone/Vilanterol 1 puff 01/15/21 08:00 01/16/21 08:39 Fluticasone/Vilanterol 100/25 Blst.W.Dev INHALE 1 puff RDAILY TEJA Administration Hydroxyzine HCl 25 mg 01/13/21 16:54 Hydroxyzine Hcl 25 Mg Tablet PO BEDTIME PRN Anxiety [place] Carbonate 300 mg 01/13/21 09:00 01/16/21 08:43 [place] Carbonate Er 300 Mg Tablet.Er PO 300 mg BID TEJA Administration Magnesium Hydroxide 30 ml 01/13/21 16:54 Milk Of Magnesia 30 Ml Oral.Susp PO DAILY PRN Constipation Nicotine 21 mg 01/13/21 09:00 01/16/21 08:44 Nicotine 21 Mg Patch.Td24 TRANSDERMA 21 mg DAILY TEJA Administration Omeprazole 20 mg 01/13/21 06:30 01/16/21 06:52 Omeprazole 20 Mg Capsule. PO 20 mg DAILY@0630 TEJA Administration Quetiapine Fumarate 75 mg 01/14/21 16:14 Quetiapine Fumarate 25 Mg Tablet PO Q6H PRN agitation Quetiapine Fumarate 50 mg 01/16/21 21:00 Quetiapine Fumarate 50 Mg Tablet PO BEDTIME TEJA Sertraline HCl 50 mg 01/13/21 09:00 01/16/21 08:43 Sertraline Hcl 50 Mg Tablet PO 50 mg DAILY TEJA Administration Tiotropium [place] 1 puff 01/13/21 08:00 01/16/21 08:39 Tiotropium [place] 18 Mcg Cap.W.Dev INHALE 1 puff RDAILY TEJA Administration Trazodone HCl 100 mg 01/13/21 21:00 01/15/21 20:40 Trazodone Hcl 100 Mg Tablet PO 100 mg BEDTIME TEJA Administration Trazodone HCl 50 mg 01/13/21 16:54 Trazodone Hcl 50 Mg Tablet PO BEDTIME PRN Insomnia Valacyclovir HCl 1,000 mg 01/13/21 09:00 01/16/21 08:43 Valacycyclovir Hcl 1,000 Mg Tablet PO 1,000 mg BID TEJA Administration Vitamin D 25 mcg 01/13/21 09:00 01/16/21 08:42 Cholecalciferol (Vitamin D3) 25 Mcg Tablet PO 25 mcg DAILY TEJA Administration Allergies Allergies Allergy/AdvReac Type Severity Reaction Status Date / Time aspirin [Aspirin] Allergy Severe HIVES,THROAT Verified 12/30/20 23:01 SWELLS bee pollen [BEE STINGS] Allergy Severe ANAPHYLAXIS Verified 12/30/20 23:01 diphenhydramine Allergy Severe hives, Verified 12/30/20 23:01 [From BENADRYL ALLERGY] throat swells Penicillins [PCN] Allergy Severe HIVES Verified 12/30/20 23:01 THROAT SWELLS Sulfa (Sulfonamide Allergy Intermediate HIVES Verified 12/30/20 23:01 Antibiotics) [SULFA (SULFONAMIDE ANTIBIOTICS)] tramadol [TRAMADOL] Allergy Intermediate ITCHING Verified 12/30/20 23:01 latex [LATEX] Allergy Unknown UNKNOWN Verified 12/30/20 23:01 penicillin G Allergy Unknown Unknown Verified 12/30/20 23:01 levofloxacin [From Levaquin] Allergy Hives Verified 12/30/20 23:01 bee stings Allergy Unknown Unknown Uncoded 12/12/20 20:36 DairyCare Allergy Unknown Unknown Uncoded 12/12/20 20:36 sulfa drugs Allergy Unknown Unknown Uncoded 12/12/20 20:36 Assessment & Plan Assessment & Plan (1) Bipolar disorder, current episode depressed, mild or moderate severity, unspecified: Status: Acute Code(s): F31.30 - Bipolar disorder, current episode depressed, mild or moderate severity, unspecified Assessment and Plan: Patient stable on current regimen and would ever Greater than 50% of the session was spent on counseling and/or coordination of care
[2021-01-16] MEDS: traZODone HCL 100 MG TABLET PO (22:24)
[2021-01-16] MEDS: QUEtiapine Fumarate 50 MG TABLET PO (22:24)
[2021-01-17] MEDS: Omeprazole 20 MG CAPSULE.DR PO (06:08)
[2021-01-17 06:10] VITALS: BP 95/50; PULSE 70; RESP 18; TEMP 36.8; O2SAT 95
[2021-01-17 08:48] VITALS: BP 110/75; PULSE 80; RESP 18; TEMP 36.8; O2SAT 95
[2021-01-17] MEDS: Lithium Carbonate ER 300 MG TABLET.ER PO ×2 (09:07→21:34)
[2021-01-17] MEDS: Nicotine 21 MG PATCH.TD24 TRANSDERMA (09:08)
[2021-01-17] MEDS: Ferrous Sulfate 324 MG TABLET.DR PO (09:08)
[2021-01-17] MEDS: Docusate Sodium 100 MG CAPSULE PO ×2 (09:08→21:34)
[2021-01-17] MEDS: Cholecalciferol (Vitamin D3) 25 MCG TABLET PO (09:08)
[2021-01-17] MEDS: Fluticasone/Vilanterol 100/25 BLST.W.DEV 1 PUFF INHALE (09:15)
[2021-01-17] MEDS: Sertraline HCL 50 MG TABLET PO (09:41)
--- NOTE | 2021-01-17 12:55 | HO.PSYCHPN ---
Subjective Subjective Date of Service: 01/17/21 Reason For Visit: SI Subjective Notes: Conditional Voluntary Interim History: Pt initially calm, helping other peers. She reports sleeping well, eating well. She denies SI/HI. Her roommate asked her while she was talking with this teletypewriter installer if we could talked outside and pt became very agitated, threatening stating that this was her room as well. It took her some time to calm down, later agreed to change rooms. However, this low frustration tolerance and explosive behavior is what has prevent her to maintain stable housing and has caused legal issues. MSE Appearance: casually groomed, fair hygiene, in NAD Behavior: calm, cooperative Psychomotor: some agitation noted after Speech: clear, normal rate/rhythm/volume, spontaneous TP: linear TC: no signs of psychosis, future oriented Mood: good Affect:congruent, not labile but pt easily irritable AH/VH:denies Delusions:denies Insight/judgment:poor x 2. Memory/cog: alert, oriented x 3. grossly intact to conversational testing. Medication Compliance: Yes Side effects from medications: No Attending Groups: Yes Diagnostics Vital Signs (24Hr): Vital Signs - 24 hr 01/16/21 16:30 01/17/21 06:10 01/17/21 08:48 Temperature 98.3 F 98.2 F 98.3 F Pulse Rate 85 70 80 Respiratory Rate 18 18 Blood Pressure 126/78 95/50 L 110/75 Pulse Oximetry 95 95 Body Mass Index 39.1 Labs Results: 01/12/21 12:46 01/12/21 12:46 Imaging Radiology Impressions: ITS Impressions Chest X-Ray 01/12/21 12:23 IMPRESSION: Unremarkable chest exam. Medications Medications Current Medications Generic Name Dose Route Start Last Admin Trade Name Freq PRN Reason Stop Dose Admin Acetaminophen 650 mg 01/12/21 21:14 01/14/21 18:23 Acetaminophen 325 Mg Tablet PO 650 mg Q6H PRN Administration mild pain Al Hydroxide/Mg Hydroxide 30 ml 01/13/21 16:54 Magnesium Hydrox/Alum Hydrox 30 Ml Oral.Susp PO Q6H PRN Heartburn/Nausea Albuterol Sulfate 2 puff 01/12/21 21:14 01/13/21 09:00 Albuterol Sulfate 90 Mcg 8 Gm Inhaler INHALE 2 puff QID PRN Administration wheezing Albuterol/Ipratropium 3 ml 01/13/21 09:15 Albuterol/Iprat 2.5/0.5mg 3 Ml Ampul.Neb INHALE Q4H PRN Wheezing Docusate Sodium 100 mg 01/13/21 09:00 01/17/21 09:08 Docusate Sodium 100 Mg Capsule PO 100 mg BID TEJA Administration Ferrous Sulfate 324 mg 01/13/21 09:00 01/17/21 09:08 Ferrous Sulfate 324 Mg Tablet. PO 324 mg DAILY TEJA Administration Fluticasone/Vilanterol 1 puff 01/15/21 08:00 01/17/21 09:15 Fluticasone/Vilanterol 100/25 Blst.W.Dev INHALE 1 puff RDAILY TEJA Administration Hydroxyzine HCl 25 mg 01/13/21 16:54 Hydroxyzine Hcl 25 Mg Tablet PO BEDTIME PRN Anxiety [place] Carbonate 300 mg 01/13/21 09:00 01/17/21 09:07 [place] Carbonate Er 300 Mg Tablet.Er PO 300 mg BID TEJA Administration Magnesium Hydroxide 30 ml 01/13/21 16:54 Milk Of Magnesia 30 Ml Oral.Susp PO DAILY PRN Constipation Nicotine 21 mg 01/13/21 09:00 01/17/21 09:08 Nicotine 21 Mg Patch.Td24 TRANSDERMA 21 mg DAILY TEJA Administration Omeprazole 20 mg 01/13/21 06:30 01/17/21 06:08 Omeprazole 20 Mg Capsule. PO 20 mg DAILY@0630 TEJA Administration Quetiapine Fumarate 75 mg 01/14/21 16:14 Quetiapine Fumarate 25 Mg Tablet PO Q6H PRN agitation Quetiapine Fumarate 50 mg 01/16/21 21:00 01/16/21 22:24 Quetiapine Fumarate 50 Mg Tablet PO 50 mg BEDTIME TEJA Administration Sertraline HCl 50 mg 01/13/21 09:00 01/17/21 09:41 Sertraline Hcl 50 Mg Tablet PO 50 mg DAILY TEJA Administration Tiotropium [place] 1 puff 01/13/21 08:00 01/17/21 09:41 Tiotropium [place] 18 Mcg Cap.W.Dev INHALE 1 puff RDAILY TEJA Administration Trazodone HCl 100 mg 01/13/21 21:00 01/16/21 22:24 Trazodone Hcl 100 Mg Tablet PO 100 mg BEDTIME TEJA Administration Trazodone HCl 50 mg 01/13/21 16:54 Trazodone Hcl 50 Mg Tablet PO BEDTIME PRN Insomnia Valacyclovir HCl 1,000 mg 01/13/21 09:00 01/17/21 09:07 Valacycyclovir Hcl 1,000 Mg Tablet PO 1,000 mg BID TEJA Administration Vitamin D 25 mcg 01/13/21 09:00 01/17/21 09:08 Cholecalciferol (Vitamin D3) 25 Mcg Tablet PO 25 mcg DAILY TEJA Administration Allergies Allergies Allergy/AdvReac Type Severity Reaction Status Date / Time aspirin [Aspirin] Allergy Severe HIVES,THROAT Verified 12/30/20 23:01 SWELLS bee pollen [BEE STINGS] Allergy Severe ANAPHYLAXIS Verified 12/30/20 23:01 diphenhydramine Allergy Severe hives, Verified 12/30/20 23:01 [From BENADRYL ALLERGY] throat swells Penicillins [PCN] Allergy Severe HIVES Verified 12/30/20 23:01 THROAT SWELLS Sulfa (Sulfonamide Allergy Intermediate HIVES Verified 12/30/20 23:01 Antibiotics) [SULFA (SULFONAMIDE ANTIBIOTICS)] tramadol [TRAMADOL] Allergy Intermediate ITCHING Verified 12/30/20 23:01 latex [LATEX] Allergy Unknown UNKNOWN Verified 12/30/20 23:01 penicillin G Allergy Unknown Unknown Verified 12/30/20 23:01 levofloxacin [From Levaquin] Allergy Hives Verified 12/30/20 23:01 bee stings Allergy Unknown Unknown Uncoded 12/12/20 20:36 DairyCare Allergy Unknown Unknown Uncoded 12/12/20 20:36 sulfa drugs Allergy Unknown Unknown Uncoded 12/12/20 20:36 Assessment & Plan Assessment & Plan (1) Intermittent explosive disorder: Status: Acute Code(s): F63.81 - Intermittent explosive disorder Assessment and Plan: Pt was started on trileptal but reported jerk like movements, myoclonus. continued on lithium increase doses of seroquel, pt becomes orthostatic and symptomatic. (2) Borderline personality disorder: Status: Acute Code(s): F60.3 - Borderline personality disorder Greater than 50% of the session was spent on counseling and/or coordination of care Reason for contiued inpatient stay Substantial Risk for: harm to others
[2021-01-17 16:45] VITALS: BP 124/65; PULSE 86; TEMP 36.9
[2021-01-17] MEDS: Acetaminophen 325 MG TABLET 650 MG PO (17:22)
[2021-01-17] MEDS: QUEtiapine Fumarate 50 MG TABLET PO (21:34)
[2021-01-17] MEDS: traZODone HCL 100 MG TABLET PO (21:34)
[2021-01-18 06:25] VITALS: BP 146/63; PULSE 77; RESP 20; TEMP 36.9; O2SAT 94
[2021-01-18] MEDS: Acetaminophen 325 MG TABLET 650 MG PO ×3 (06:30→23:00)
[2021-01-18] MEDS: Omeprazole 20 MG CAPSULE.DR PO (06:31)
[2021-01-18 07:56] LABS: Lithium 0.39 mmol/L (0.60-1.20)
[2021-01-18] MEDS: Docusate Sodium 100 MG CAPSULE PO ×2 (08:43→23:00)
[2021-01-18] MEDS: Lithium Carbonate ER 300 MG TABLET.ER PO (08:43)
[2021-01-18] MEDS: Cholecalciferol (Vitamin D3) 25 MCG TABLET PO (08:43)
[2021-01-18] MEDS: Ferrous Sulfate 324 MG TABLET.DR PO (08:44)
[2021-01-18] MEDS: Sertraline HCL 50 MG TABLET PO (08:44)
[2021-01-18] MEDS: Fluticasone/Vilanterol 100/25 BLST.W.DEV 1 PUFF INHALE (08:45)
[2021-01-18] MEDS: Nicotine 21 MG PATCH.TD24 TRANSDERMA (09:01)
--- NOTE | 2021-01-18 10:51 | HO.PSYCHPN ---
Subjective Subjective Date of Service: 01/18/21 Reason For Visit: SI Interim History: Pt reports less anxious mood. She has been less reactive and explosive. She denies SI/HI. She is sleeping and eating well. She has been visible in the unit and attends assigned groups. No behavioral concerns. MSE Appearance: casually groomed, fair hygiene, in NAD Behavior: calm, cooperative Psychomotor: some agitation noted after Speech: clear, normal rate/rhythm/volume, spontaneous TP: linear TC: no signs of psychosis, future oriented Mood: good Affect:congruent, not labile but pt easily irritable AH/VH:denies Delusions:denies Insight/judgment:poor x 2. Memory/cog: alert, oriented x 3. grossly intact to conversational testing. Review of Systems Review of Systems All other systems are reviewed and are negative Constitutional: Reports as per HPI and Reports no additional constitutional complaints Eyes: Reports as per HPI and Reports no additional eye complaints Reports system reviewed and no additional complaints, except as documented Cardiovascular: Reports as per HPI and Reports no additional cardiovascular complaints Respiratory: Reports as per HPI and Reports no additional respiratory complaints Gastrointestinal: Reports as per HPI and Reports no additional gastrointestinal complaints Genitourinary: Reports no additional female genitourinary complaints Musculoskeletal: Reports no additional musculoskeletal complaints Skin/Breast: Reports system reviewed and no additional complaints, except as docu Psychiatric: Reports no additional psychiatric complaints Endocrine: Reports no additional endocrine complaints Hematologic/Lymphatic: Reports no additional hematologic/lymphatic complaints Allergic/Immunologic: Reports no additional allergic/immunologic complaints Reports system reviewed and no additional complaints, except as documented and Reports Abnormal speech present Diagnostics Vital Signs (24Hr): Vital Signs - 24 hr 01/17/21 16:45 01/18/21 06:25 Temperature 98.4 F 98.4 F Pulse Rate 86 77 Respiratory Rate 20 Blood Pressure 124/65 146/63 H Pulse Oximetry 94 Body Mass Index 39.1 Labs Results: 01/12/21 12:46 01/12/21 12:46 Labs: Laboratory Results - last 48 hr 01/18/21 07:33 [place] 0.39 L Imaging Radiology Impressions: ITS Impressions Chest X-Ray 01/12/21 12:23 IMPRESSION: Unremarkable chest exam. Medications Medications Current Medications Generic Name Dose Route Start Last Admin Trade Name Freq PRN Reason Stop Dose Admin Acetaminophen 650 mg 01/12/21 21:14 01/18/21 06:30 Acetaminophen 325 Mg Tablet PO 650 mg Q6H PRN Administration mild pain Al Hydroxide/Mg Hydroxide 30 ml 01/13/21 16:54 Magnesium Hydrox/Alum Hydrox 30 Ml Oral.Susp PO Q6H PRN Heartburn/Nausea Albuterol Sulfate 2 puff 01/12/21 21:14 01/13/21 09:00 Albuterol Sulfate 90 Mcg 8 Gm Inhaler INHALE 2 puff QID PRN Administration wheezing Albuterol/Ipratropium 3 ml 01/13/21 09:15 Albuterol/Iprat 2.5/0.5mg 3 Ml Ampul.Neb INHALE Q4H PRN Wheezing Docusate Sodium 100 mg 01/13/21 09:00 01/18/21 08:43 Docusate Sodium 100 Mg Capsule PO 100 mg BID TEJA Administration Ferrous Sulfate 324 mg 01/13/21 09:00 01/18/21 08:44 Ferrous Sulfate 324 Mg Tablet. PO 324 mg DAILY TEJA Administration Fluticasone/Vilanterol 1 puff 01/15/21 08:00 01/18/21 08:45 Fluticasone/Vilanterol 100/25 Blst.W.Dev INHALE 1 puff RDAILY TEJA Administration Hydroxyzine HCl 25 mg 01/13/21 16:54 Hydroxyzine Hcl 25 Mg Tablet PO BEDTIME PRN Anxiety [place] Carbonate 300 mg 01/13/21 09:00 01/18/21 08:43 [place] Carbonate Er 300 Mg Tablet.Er PO 300 mg BID TEJA Administration Magnesium Hydroxide 30 ml 01/13/21 16:54 Milk Of Magnesia 30 Ml Oral.Susp PO DAILY PRN Constipation Nicotine 21 mg 01/13/21 09:00 01/18/21 09:01 Nicotine 21 Mg Patch.Td24 TRANSDERMA 21 mg DAILY TEJA Administration Omeprazole 20 mg 01/13/21 06:30 01/18/21 06:31 Omeprazole 20 Mg Capsule. PO 20 mg DAILY@0630 TEJA Administration Quetiapine Fumarate 50 mg 01/16/21 21:00 01/17/21 21:34 Quetiapine Fumarate 50 Mg Tablet PO 50 mg BEDTIME TEJA Administration Quetiapine Fumarate 25 mg 01/17/21 18:03 Quetiapine Fumarate 25 Mg Tablet PO Q4H PRN Agitation Sertraline HCl 50 mg 01/13/21 09:00 01/18/21 08:44 Sertraline Hcl 50 Mg Tablet PO 50 mg DAILY TEJA Administration Tiotropium [place] 1 puff 01/13/21 08:00 01/18/21 08:49 Tiotropium [place] 18 Mcg Cap.W.Dev INHALE 1 puff RDAILY TEJA Administration Trazodone HCl 100 mg 01/13/21 21:00 01/17/21 21:34 Trazodone Hcl 100 Mg Tablet PO 100 mg BEDTIME TEJA Administration Trazodone HCl 50 mg 01/13/21 16:54 Trazodone Hcl 50 Mg Tablet PO BEDTIME PRN Insomnia Valacyclovir HCl 1,000 mg 01/13/21 09:00 01/18/21 08:43 Valacycyclovir Hcl 1,000 Mg Tablet PO 1,000 mg BID TEJA Administration Vitamin D 25 mcg 01/13/21 09:00 01/18/21 08:43 Cholecalciferol (Vitamin D3) 25 Mcg Tablet PO 25 mcg DAILY TEJA Administration Allergies Allergies Allergy/AdvReac Type Severity Reaction Status Date / Time aspirin [Aspirin] Allergy Severe HIVES,THROAT Verified 12/30/20 23:01 SWELLS bee pollen [BEE STINGS] Allergy Severe ANAPHYLAXIS Verified 12/30/20 23:01 diphenhydramine Allergy Severe hives, Verified 12/30/20 23:01 [From BENADRYL ALLERGY] throat swells Penicillins [PCN] Allergy Severe HIVES Verified 12/30/20 23:01 THROAT SWELLS Sulfa (Sulfonamide Allergy Intermediate HIVES Verified 12/30/20 23:01 Antibiotics) [SULFA (SULFONAMIDE ANTIBIOTICS)] tramadol [TRAMADOL] Allergy Intermediate ITCHING Verified 12/30/20 23:01 latex [LATEX] Allergy Unknown UNKNOWN Verified 12/30/20 23:01 penicillin G Allergy Unknown Unknown Verified 12/30/20 23:01 levofloxacin [From Levaquin] Allergy Hives Verified 12/30/20 23:01 bee stings Allergy Unknown Unknown Uncoded 12/12/20 20:36 D[employer]Care Allergy Unknown Unknown Uncoded 12/12/20 20:36 sulfa drugs Allergy Unknown Unknown Uncoded 12/12/20 20:36 Assessment & Plan Assessment & Plan (1) Intermittent explosive disorder: Status: Acute Code(s): F63.81 - Intermittent explosive disorder Assessment and Plan: Pt was started on trileptal but reported jerk like movements, myoclonus. continued on lithium increase doses of seroquel, pt becomes orthostatic and symptomatic. (2) Borderline personality disorder: Status: Acute Code(s): F60.3 - Borderline personality disorder Greater than 50% of the session was spent on counseling and/or coordination of care Reason for contiued inpatient stay Substantial Risk for: harm to self
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
[2021-01-18 15:56] VITALS: BP 131/69; PULSE 78; TEMP 36.7
[2021-01-18] MEDS: Ibuprofen 800 MG TABLET PO (18:16)
[2021-01-18] MEDS: Lithium Carbonate ER 300 MG TABLET.ER 600 MG PO (23:00)
[2021-01-18] MEDS: traZODone HCL 100 MG TABLET PO (23:00)
[2021-01-18] MEDS: QUEtiapine Fumarate 50 MG TABLET PO (23:00)
[2021-01-19 06:10] VITALS: BP 104/59; PULSE 67; RESP 18; TEMP 36.9; O2SAT 94
[2021-01-19] MEDS: Omeprazole 20 MG CAPSULE.DR PO (06:22)
[2021-01-19] MEDS: Cholecalciferol (Vitamin D3) 25 MCG TABLET PO (08:21)
[2021-01-19] MEDS: Ferrous Sulfate 324 MG TABLET.DR PO (08:21)
[2021-01-19] MEDS: Ibuprofen 800 MG TABLET PO ×3 (08:21→17:00)
[2021-01-19] MEDS: Lithium Carbonate ER 300 MG TABLET.ER 600 MG PO ×3 (08:21→22:54)
[2021-01-19] MEDS: Sertraline HCL 50 MG TABLET PO (08:22)
[2021-01-19] MEDS: Fluticasone/Vilanterol 100/25 BLST.W.DEV 1 PUFF INHALE (09:22)
[2021-01-19] MEDS: Nicotine 21 MG PATCH.TD24 TRANSDERMA (09:30)
[2021-01-19] MEDS: Docusate Sodium 100 MG CAPSULE PO ×3 (12:50→22:54)
--- NOTE | 2021-01-19 17:22 | HO.PSYCHPN ---
Subjective Subjective Date of Service: 01/19/21 Reason For Visit: SI Interim History: Pt reports improved mood. She denies SI/HI. She reports improved sleep. She denies VH/AH. She has been visible in the unit. She attends groups. No behavioral concerns. Review of Systems Review of Systems Denies any recent fever chills or decrease in appetite respiratory denies any shortness of breath coverage production cardiovascular no chest pain gastrointestinal denies any dysphagia abdominal pain nausea vomiting or diarrhea genitourinary denies any dysuria frequency or hematuria musculoskeletal See HPI neuropsych denies any weakness or seizures all other systems reviewed are negative Yes all other systems are reviewed and are negative Mental Status Exam Mental Status Exam Narrative: Appearance: [place] woman, casually groomed, fair hygiene, in NAD Behavior: calm, cooperative Psychomotor: no agitation or retardation noted Speech: clear, normal rate/rhythm/volume, spontaneous TP: linear TC: no signs of psychosis, future oriented Mood: better Affect:euthymic, non labile SI: none HI: none AH/VH:none Delusions:none Insight/judgment:poor x 2. Memory/cog: alert, oriented x 3. grossly intact to conversational testing. Diagnostics Vital Signs (24Hr): Vital Signs - 24 hr 01/19/21 06:10 Temperature 98.5 F Pulse Rate 67 Respiratory Rate 18 Blood Pressure 104/59 L Pulse Oximetry 94 Body Mass Index 39.1 Labs Results: 01/12/21 12:46 01/12/21 12:46 Labs: Laboratory Results - last 48 hr 01/18/21 07:33 [place] 0.39 L Imaging Radiology Impressions: ITS Impressions Chest X-Ray 01/12/21 12:23 IMPRESSION: Unremarkable chest exam. Medications Medications Current Medications Generic Name Dose Route Start Last Admin Trade Name Freq PRN Reason Stop Dose Admin Acetaminophen 650 mg 01/12/21 21:14 01/18/21 23:00 Acetaminophen 325 Mg Tablet PO 650 mg Q6H PRN Administration mild pain Al Hydroxide/Mg Hydroxide 30 ml 01/13/21 16:54 Magnesium Hydrox/Alum Hydrox 30 Ml Oral.Susp PO Q6H PRN Heartburn/Nausea Albuterol Sulfate 2 puff 01/12/21 21:14 01/13/21 09:00 Albuterol Sulfate 90 Mcg 8 Gm Inhaler INHALE 2 puff QID PRN Administration wheezing Albuterol/Ipratropium 3 ml 01/13/21 09:15 Albuterol/Iprat 2.5/0.5mg 3 Ml Ampul.Neb INHALE Q4H PRN Wheezing Docusate Sodium 100 mg 01/13/21 09:00 01/19/21 12:50 Docusate Sodium 100 Mg Capsule PO 100 mg BID TEJA Administration Ferrous Sulfate 324 mg 01/13/21 09:00 01/19/21 08:21 Ferrous Sulfate 324 Mg Tablet. PO 324 mg DAILY TEJA Administration Fluticasone/Vilanterol 1 puff 01/15/21 08:00 01/19/21 09:22 Fluticasone/Vilanterol 100/25 Blst.W.Dev INHALE 1 puff RDAILY TEJA Administration Hydroxyzine HCl 25 mg 01/13/21 16:54 Hydroxyzine Hcl 25 Mg Tablet PO BEDTIME PRN Anxiety Ibuprofen 800 mg 01/18/21 17:00 01/19/21 12:50 Ibuprofen 800 Mg Tablet PO 800 mg TIDWM TEJA Administration [place] Carbonate 600 mg 01/18/21 21:00 01/19/21 08:21 [place] Carbonate Er 300 Mg Tablet.Er PO 600 mg BID TEJA Administration Magnesium Hydroxide 30 ml 01/13/21 16:54 Milk Of Magnesia 30 Ml Oral.Susp PO DAILY PRN Constipation Nicotine 21 mg 01/13/21 09:00 01/19/21 09:30 Nicotine 21 Mg Patch.Td24 TRANSDERMA 21 mg DAILY TEJA Administration Omeprazole 20 mg 01/13/21 06:30 01/19/21 06:22 Omeprazole 20 Mg Capsule. PO 20 mg DAILY@0630 TEJA Administration Quetiapine Fumarate 50 mg 01/16/21 21:00 01/18/21 23:00 Quetiapine Fumarate 50 Mg Tablet PO 50 mg BEDTIME TEJA Administration Quetiapine Fumarate 25 mg 01/17/21 18:03 Quetiapine Fumarate 25 Mg Tablet PO Q4H PRN Agitation Sertraline HCl 50 mg 01/13/21 09:00 01/19/21 08:22 Sertraline Hcl 50 Mg Tablet PO 50 mg DAILY TEJA Administration Tiotropium [place] 1 puff 01/13/21 08:00 01/19/21 09:22 Tiotropium [place] 18 Mcg Cap.W.Dev INHALE 1 puff RDAILY TEJA Administration Trazodone HCl 100 mg 01/13/21 21:00 01/18/21 23:00 Trazodone Hcl 100 Mg Tablet PO 100 mg BEDTIME TEJA Administration Trazodone HCl 50 mg 01/13/21 16:54 Trazodone Hcl 50 Mg Tablet PO BEDTIME PRN Insomnia Valacyclovir HCl 1,000 mg 01/13/21 09:00 01/19/21 08:21 Valacycyclovir Hcl 1,000 Mg Tablet PO 1,000 mg BID TEJA Administration Vitamin D 25 mcg 01/13/21 09:00 01/19/21 08:21 Cholecalciferol (Vitamin D3) 25 Mcg Tablet PO 25 mcg DAILY TEJA Administration Allergies Allergies Allergy/AdvReac Type Severity Reaction Status Date / Time aspirin [Aspirin] Allergy Severe HIVES,THROAT Verified 12/30/20 23:01 SWELLS bee pollen [BEE STINGS] Allergy Severe ANAPHYLAXIS Verified 12/30/20 23:01 diphenhydramine Allergy Severe hives, Verified 12/30/20 23:01 [From BENADRYL ALLERGY] throat swells Penicillins [PCN] Allergy Severe HIVES Verified 12/30/20 23:01 THROAT SWELLS Sulfa (Sulfonamide Allergy Intermediate HIVES Verified 12/30/20 23:01 Antibiotics) [SULFA (SULFONAMIDE ANTIBIOTICS)] tramadol [TRAMADOL] Allergy Intermediate ITCHING Verified 12/30/20 23:01 latex [LATEX] Allergy Unknown UNKNOWN Verified 12/30/20 23:01 penicillin G Allergy Unknown Unknown Verified 12/30/20 23:01 levofloxacin [From Levaquin] Allergy Hives Verified 12/30/20 23:01 bee stings Allergy Unknown Unknown Uncoded 12/12/20 20:36 DairyCare Allergy Unknown Unknown Uncoded 12/12/20 20:36 sulfa drugs Allergy Unknown Unknown Uncoded 12/12/20 20:36 Assessment & Plan Assessment & Plan (1) Borderline personality disorder: Status: Acute Code(s): F60.3 - Borderline personality disorder (2) Intermittent explosive disorder: Status: Acute Code(s): F63.81 - Intermittent explosive disorder Assessment and Plan: Pt does not appear particularly depressed. However, pt is impulsive ,explosive and suicidal statements appears result of her low frustration tolerance and inability to self regulate. 1. Continue [place]- may consider adjusting dose 2. D/C trileptal due to myoclonus 3. Continue Seroquel 4. Aftercare planning. Greater than 50% of the session was spent on counseling and/or coordination of care Reason for contiued inpatient stay Substantial Risk for: harm to self
[2021-01-19 18:00] VITALS: BP 117/76; PULSE 85; TEMP 36.7
--- NOTE | 2021-01-19 22:34 | PC.NURSE ---
Pt was in the kitchen doing a puzzle when the patient in 8- came into the kitchen. Staff was to give an IM to [facility] and had followed her into the kitchen. T/W asked this patient to give staff a few minutes with [facility]. She stated I am not getting up out of the kitchen so you can fucking give her the shot and you can get the fuck out of my face now! Staff asked her politely to give space to [facility]. If you touch me I am ready to go...I should not have to leave the kitchen when I was already here, drag her down to her room! Patient then got up and proceeded to use profanity towards staff. Finally went outside of the kitchen and stood outside yelling at staff. T/W came out of the kitchen thereafter and tried to speak with this patient. Don't you fucking even talk to me, you are to me you black bitch, you are the worst type of tea...I didn't even say nigger, you are the worst tea I dont even see you, I'm leaving tonight I don't give a fuck this isn't right. Security went and talked with this patient on the fresh air porch as well as a staff member. Patient requested that she leave and speak to a supervisor brine. Security followed up with the supervisor brine. This patient refused medications and went back into the kitchen for the remainder of the night. Let staff know she was waiting for supervisor brine.
[2021-01-19] MEDS: QUEtiapine Fumarate 50 MG TABLET PO (22:50)
[2021-01-19] MEDS: traZODone HCL 100 MG TABLET PO ×2 (22:53)
[2021-01-20 06:15] VITALS: BP 104/61; PULSE 68; RESP 18; TEMP 36.9; O2SAT 93
[2021-01-20] MEDS: Omeprazole 20 MG CAPSULE.DR PO (06:27)
[2021-01-20] MEDS: Fluticasone/Vilanterol 100/25 BLST.W.DEV 1 PUFF INHALE (08:26)
[2021-01-20] MEDS: Sertraline HCL 50 MG TABLET PO (08:26)
[2021-01-20] MEDS: Ibuprofen 800 MG TABLET PO (08:27)
[2021-01-20] MEDS: Docusate Sodium 100 MG CAPSULE PO (08:29)
[2021-01-20] MEDS: Nicotine 21 MG PATCH.TD24 TRANSDERMA (08:29)
[2021-01-20] MEDS: Cholecalciferol (Vitamin D3) 25 MCG TABLET PO (08:31)
[2021-01-20] MEDS: Ferrous Sulfate 324 MG TABLET.DR PO (08:31)
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
== END 2021-01-20 11:35 | disposition home or self-care (01) | DRG 758 ==
LOC: HO.ED 13:14 → HO.PM5 01-13 17:01
PROVIDERS: Admitting Provider Psychiatry & Neurology Psychiatry; Emergency Provider Emergency Medicine; Visit Provider Social Worker
DX: F63.81 Intermittent explosive disorder (principal); J44.1 Chronic obstructive pulmonary disease with (acute) exacerbation; R45.851 Suicidal ideations; G25.3 Myoclonus; J45.901 Unspecified asthma with (acute) exacerbation; K21.9 Gastro-esophageal reflux disease without esophagitis; F60.3 Borderline personality disorder; M54.16 Radiculopathy, lumbar region; F17.210 Nicotine dependence, cigarettes, uncomplicated; T42.1X5A Adverse effect of iminostilbenes, initial encounter; Y92.239 Unspecified place in hospital as the place of occurrence of the external cause; Z71.6 Tobacco abuse counseling; Z20.822 Contact with and (suspected) exposure to COVID-19; Z88.0 Allergy status to penicillin; Z88.2 Allergy status to sulfonamides; Z79.51 Long term (current) use of inhaled steroids; Z79.899 Other long term (current) drug therapy
CPT/HCPCS: 36415; 71046; 80048; 80178; 80307; 81003; 81025; 82947; 85025; 87635; 94640; 97161; 99285

== ENCOUNTER 2021-02-09 19:41 | Emergency (ER) | payer MEDICAID, SELFPAY ==
--- NOTE | ~2021-02-09 | XR_ITS ---
EXAMINATION: XR CHEST CLINICAL INFORMATION: Cough. COMPARISON: 01/12/2021 chest radiographs. TECHNIQUE: Frontal view of the chest was obtained. FINDINGS: No significant abnormality is noted involving the heart, lungs, mediastinum, bony thorax or soft tissues. XR/XR chest 1V IMPRESSION: No acute cardiopulmonary process.
[2021-02-09 20:06] VITALS: BP 134/76; BP 138/90; PULSE 107; PULSE 91; RESP 20; TEMP 36.6; O2SAT 94; O2SAT 97; BMI 71.1
[2021-02-09] MEDS: Albuterol/Iprat 2.5/0.5MG 3 ML AMPUL.NEB INHALE (20:58)
[2021-02-09 21:18] LABS: MANUAL DIFF FLAG NO
[2021-02-09 21:33] LABS: Basophils Absolute Auto 0.1 X10*3/uL (0.0-0.2); Eosinophils Absolute Auto 0.1 X10*3/uL (0.0-0.4); Eosinophils Percent Auto 1.3 % (0-4); Hematocrit 40.3 % (37-47); Imm Gran Abs Auto 0.01 X10*3/uL (0.00-0.03); Imm Gran Pct Auto 0.1 % (0.0-0.4); Lymphocytes Absolute Auto 2.3 X10*3/uL (1.2-4.9); Lymphocytes Percent Auto 33.8 % (20-40); Mean Corpuscular HGB Conc 32.3 g/dl (31.0-35.0); Mean Corpuscular Volume 92.9 fL (80-98); Monocytes Absolute Auto 0.4 X10*3/uL (0.1-1.2); Monocytes Percent Auto 6.3 % (2-11); Neutrophils Absolute Auto 3.8 X10*3/uL (2.0-8.3); Neutrophils Percent Auto 57.5 % (45-73); Platelet Count 282 X10*3/uL (160-400); Red Blood Count 4.34 X10*6/uL (4.20-5.50); Red Cell Distribution Width 13.1 % (11.0-16.0); White Blood Count 6.7 X10*3/uL (4.8-10.8)
[2021-02-09 21:35] VITALS: PULSE 91; O2SAT 94
[2021-02-09 21:37] LABS: Lactic Acid 0.8 mmol/L (0.5-2.0)
[2021-02-09 21:38] LABS: COVID-19 Test Negative (Negative)
--- NOTE | 2021-02-09 21:42 | ED_ITS ---
HPI - Psych General Chief Complaint: Psychiatric Symptoms Stated Complaint: crisis Source: patient and EMS Mode of arrival: EMS Limitations: no limitations History of Present Illness HPI Narrative: 51-year-old female with past medical history of asthma, COPD, bipolar disorder, intermittent explosive disorder, borderline personality disorder, and chronic pain presents via EMS for suicidal ideation. Patient is also complaining of shortness of breath, and feels like she either has ?pneumonia or an asthma attack?. She did not describe any chest pain or pressure, palpitations, abdominal pain, abdominal distention, dysuria, hematuria, substance abuse, auditory visual hallucinations, homicidal ideations, or any other concerning symptoms. MD complaint: suicidal ideation and feels depressed Onset (ago): unknown Duration: constant History of same: Yes Relieving factors: none Context: significant life stressor (Depression, homelessness) Associated psychiatric symptoms: depression and suicidal ideation Associated symptoms: denies other symptoms Treatments prior to arrival: none If self harm: admits thoughts of self harm Related Data Home Medications Medication Instructions Recorded Confirmed Spiriva Respimat 2 puff PO DAILY 01/12/21 02/10/21 acetaminophen 2 tab PO Q6H PRN 01/12/21 02/10/21 fluticasone propion-salmeterol 1 puff INHALATION BID 01/12/21 02/10/21 nicotine 1 patch TOPICAL DAILY 01/12/21 02/10/21 sertraline 1 tab PO DAILY 01/12/21 02/10/21 Previous Rx's Medication Instructions Recorded albuterol sulfate 2 puff INHALATION QID PRN #1 g 12/29/20 cholecalciferol (vitamin D3) 25 mcg PO DAILY #30 tab 12/29/20 docusate sodium 100 mg PO BID #60 cap 12/29/20 ferrous sulfate 324 mg PO DAILY #30 tab 12/29/20 omeprazole 20 mg PO DAILY@0630 #30 cap 12/29/20 trazodone 100 mg PO BEDTIME #30 tab 12/29/20 valacyclovir [Valtrex] 1,000 mg PO BID #60 tab 12/29/20 ibuprofen 800 mg PO TIDWM 30 Days #90 tab 01/20/21 lithium carbonate 600 mg PO BID 15 Days #60 tab 01/20/21 quetiapine 50 mg PO BEDTIME 30 Days #30 tab 01/20/21 Allergies Allergy/AdvReac Type Severity Reaction Status Date / Time aspirin [Aspirin] Allergy Severe HIVES,THROAT Verified 12/30/20 23:01 SWELLS bee pollen [BEE STINGS] Allergy Severe ANAPHYLAXIS Verified 12/30/20 23:01 diphenhydramine Allergy Severe hives, Verified 12/30/20 23:01 [From BENADRYL ALLERGY] throat swells Penicillins [PCN] Allergy Severe HIVES Verified 12/30/20 23:01 THROAT SWELLS Sulfa (Sulfonamide Allergy Intermediate HIVES Verified 12/30/20 23:01 Antibiotics) [SULFA (SULFONAMIDE ANTIBIOTICS)] tramadol [TRAMADOL] Allergy Intermediate ITCHING Verified 12/30/20 23:01 latex [LATEX] Allergy Unknown UNKNOWN Verified 12/30/20 23:01 penicillin G Allergy Unknown Unknown Verified 12/30/20 23:01 levofloxacin [From Levaquin] Allergy Hives Verified 12/30/20 23:01 bee stings Allergy Unknown Unknown Uncoded 12/12/20 20:36 D[employer]Care Allergy Unknown Unknown Uncoded 12/12/20 20:36 sulfa drugs Allergy Unknown Unknown Uncoded 12/12/20 20:36 Review of Systems Review of Systems: Constitutional: No Fever, No Chills ENT/Mouth: No Ear Pain, No Nasal Congestion, No sore throat Eyes: No Eye Pain, No Swelling, No Redness Cardiovascular: No Chest Pain, No SOB Respiratory: No Cough, No Sputum, No Dyspnea Gastrointestinal: No Nausea, No Vomiting, No Diarrhea, No Hematochezia, No Melena Genitourinary: No Dysuria, No Urinary Frequency, No Hematuria Musculoskeletal: No Myalgias Skin: No Skin Lesions, No rash Neuro: No Weakness, No Numbness, No Paresthesias, No Dizziness, No Headache Psych: positive Anxiety, positive Depression, positive SI/HI Heme/Lymph: No Lymphadenopathy Endocrine: No Polyuria, No Polydipsia PMFSH Past Medical History Attestation statement: The following information was validated with the patient. Source: old records reviewed Medical History Bipolar disorder Borderline personality disorder COPD (chronic obstructive pulmonary disease) Depression Herpes Tobacco use Surgical History History of ankle surgery History of appendectomy History of back surgery Hx of cholecystectomy Family History Family History Mother COPD (chronic obstructive pulmonary disease) Social History Social History Household Members: None Housing: Homeless Alcohol intake: current Alcohol intake frequency: a few times a week Alcohol type: beer and hard liquor Smoking Status: Current every day smoker Tobacco Type: Cigarette Packs Per Day: 1 Cigarettes Per Day: 20.0 Years Smoked: 36 Smoked in Last 30 Days: Yes Second Hand Smoke Exposure: Yes Use of substances other than those prescribed or required for medical reasons: No Substance Use Type: Crack/Cocaine Advance Directives: No service: No Current occupational status: unemployed Sexual orientation: Straight/Heterosexual Physical Exam Vital Signs: Vital Signs: Last Vital Signs Temp 98.9 F 02/10/21 00:00 Pulse 86 02/10/21 00:00 Resp 16 02/10/21 02:00 BP 103/54 L 02/10/21 00:00 Pulse Ox 90 L 02/10/21 00:00 Body Mass Index 71.1 Appearance: Alert. Oriented X3. Mild distress. Eyes: Pupils equal, round and reactive to light. EOMI, sclera nonicteric ENT: Pharynx normal. Moist mucous membranes Neck: Normal inspection. Neck supple. CVS: Normal heart rate and rhythm. Pulses normal. Respiratory: No respiratory distress. Mild expiratory wheezing noted throughout the lobes. Abdomen: Soft and nontender. Skin: Skin warm and dry. Normal skin color. Normal skin turgor. Extremities: No lower extremity edema. Gait well balanced well coordinated, s trength 5/5 to all extremities Neuro: No motor deficit. No sensory deficit. Cranial nerves 2-12 intact Course Course Course Narrative: 51-year-old female presents with suicidal ideation and short ness of breath. Will order chest x-ray, order CBC, Chem 7, drugs of abuse. Will start with breathing treatment. X-rays are negative for pneumonia, or other acute findings. No further treatment required for upper respiratory symptoms. COVID test is negative. Patient is a voluntary bed search at this time, was seen in the community. 3:28 a.m. physician observation started at this time. Voluntary bed search and BHN consult pending. MDM - Psych MDM Narrative Medical decision making narrative: Asthma exacerbation, COPD, pneumonia Differential Diagnosis Differential diagnosis: Likely acute psychosis, suicidal ideation, bipolar disorder, depression, acute anxiety and mood disorder Medical Records Attestation: I reviewed the patient's medical records. Lab Data Attestation: I reviewed the patient's lab results. Result diagrams: 02/09/21 21:08 02/09/21 21:08 Labs: Lab Results 02/09/21 02/09/21 02/09/21 Range/Units 21:08 21:08 21:08 WBC 6.7 (4.8-10.8) X10*3/uL RBC 4.34 (4.20-5.50) X10*6/uL Hgb 13.0 (12.0-16.0) g/dl Hct 40.3 (37-47) % MCV 92.9 (80-98) fL MCH 30.0 (27.0-33.0) pg MCHC 32.3 (31.0-35.0) g/dl RDW 13.1 (11.0-16.0) % Plt Count 282 (160-400) X10*3/uL MPV 10.0 (9.4-12.3) fL Immature Gran % (Auto) 0.1 (0.0-0.4) % Neut % (Auto) 57.5 (45-73) % Lymph % (Auto) 33.8 (20-40) % [place] % (Auto) 6.3 (2-11) % Eos % (Auto) 1.3 (0-4) % Baso % (Auto) 1.0 (0-2) % Lymph # (Auto) 2.3 (1.2-4.9) X10*3/uL [place] # (Auto) 0.4 (0.1-1.2) X10*3/uL Eos # (Auto) 0.1 (0.0-0.4) X10*3/uL Baso # (Auto) 0.1 (0.0-0.2) X10*3/uL Abs Immat Gran (auto) 0.01 (0.00-0.03) X10*3/uL Absolute Neuts (auto) 3.8 (2.0-8.3) X10*3/uL Absolute Nucleated RBC 0.000 (0.0-0.012) X10*3/uL Nucleated RBC % (auto) 0.0 (0.0-0.2) /100WBC Sodium 140 (135-145) mmol/L Potassium 4.2 (3.3-5.1) mmol/L Chloride 105 (96-108) mmol/L Carbon Dioxide 27 (22-29) mmol/L Anion Gap 12 (12-20) BUN 14 (9-16) mg/dL Creatinine 0.70 (0.5-1.4) mg/dL Estim Creat Clear Calc 175.4 Estimated GFR > 60 Random Glucose 99 (60-115) mg/dL Lactic Acid (0.5-2.0) mmol/L Calcium 9.1 (8.4-10.2) mg/dL Total Bilirubin 0.2 (0.0-1.0) mg/dL AST 15 (5-31) U/L ALT 18 (0-31) U/L Alkaline Phosphatase 74 (39-117) U/L Total Protein 6.7 (6.5-8.0) g/dL Albumin 4.2 (3.5-5.0) g/dL Urine Opiates Screen (Not Detect) Ur Barbiturates Screen (Not Detect) Ur Phencyclidine Scrn (Not Detect) Ur Amphetamines Screen (Not Detect) U Benzodiazepines Scrn (Not Detect) Urine Cocaine Screen (Not Detect) U Marijuana (THC) Screen (Not Detect) COVID-19 (ENDY) Negative (Negative) COVID-19 Clin Com See Note 02/09/21 02/09/21 Range/Units 21:08 21:08 WBC (4.8-10.8) X10*3/uL RBC (4.20-5.50) X10*6/uL Hgb (12.0-16.0) g/dl Hct (37-47) % MCV (80-98) fL MCH (27.0-33.0) pg MCHC (31.0-35.0) g/dl RDW (11.0-16.0) % Plt Count (160-400) X10*3/uL MPV (9.4-12.3) fL Immature Gran % (Auto) (0.0-0.4) % Neut % (Auto) (45-73) % Lymph % (Auto) (20-40) % [place] % (Auto) (2-11) % Eos % (Auto) (0-4) % Baso % (Auto) (0-2) % Lymph # (Auto) (1.2-4.9) X10*3/uL [place] # (Auto) (0.1-1.2) X10*3/uL Eos # (Auto) (0.0-0.4) X10*3/uL Baso # (Auto) (0.0-0.2) X10*3/uL Abs Immat Gran (auto) (0.00-0.03) X10*3/uL Absolute Neuts (auto) (2.0-8.3) X10*3/uL Absolute Nucleated RBC (0.0-0.012) X10*3/uL Nucleated RBC % (auto) (0.0-0.2) /100WBC Sodium (135-145) mmol/L Potassium (3.3-5.1) mmol/L Chloride (96-108) mmol/L Carbon Dioxide (22-29) mmol/L Anion Gap (12-20) BUN (9-16) mg/dL Creatinine (0.5-1.4) mg/dL Estim Creat Clear Calc Estimated GFR Random Glucose (60-115) mg/dL Lactic Acid 0.8 (0.5-2.0) mmol/L Calcium (8.4-10.2) mg/dL Total Bilirubin (0.0-1.0) mg/dL AST (5-31) U/L ALT (0-31) U/L Alkaline Phosphatase (39-117) U/L Total Protein (6.5-8.0) g/dL Albumin (3.5-5.0) g/dL Urine Opiates Screen Not Detected (Not Detect) Ur Barbiturates Screen Not Detected (Not Detect) Ur Phencyclidine Scrn Not Detected (Not Detect) Ur Amphetamines Screen Not Detected (Not Detect) U Benzodiazepines Scrn Not Detected (Not Detect) Urine Cocaine Screen Not Detected (Not Detect) U Marijuana (THC) Screen Not Detected (Not Detect) COVID-19 (ENDY) (Negative) COVID-19 Clin Com Imaging Data Chest x-ray: Attestation: I personally reviewed and interpreted this imaging study as follows: Radiologist's impression: EXAMINATION: XR CHEST CLINICAL INFORMATION: Cough. COMPARISON: 01/12/2021 chest radiographs. TECHNIQUE: Frontal view of the chest was obtained. FINDINGS: No significant abnormality is noted involving the heart, lungs, mediastinum, bony thorax or soft tissues. XR/XR chest 1V IMPRESSION: No acute cardiopulmonary process. Discharge Plan Discharge Clinical Impression: Borderline personality disorder, Bipolar disorder, current episode depressed, mild or moderate severity, unspecified, Suicidal ideation Prescriptions: No Action trazodone 100 mg Tablet 100 mg PO BEDTIME Qty: 30 RF: 0 docusate sodium 100 mg Capsule 100 mg PO BID Qty: 60 RF: 0 omeprazole 20 mg Capsule,Delayed Release(Dr/Ec) 20 mg PO DAILY@0630 Qty: 30 RF: 0 ferrous sulfate 324 mg (65 mg iron) Tablet,Delayed Release (Dr/Ec) 324 mg PO DAILY Qty: 30 RF: 0 cholecalciferol (vitamin D3) 25 mcg (1,000 unit) Tablet 25 mcg PO DAILY Qty: 30 RF: 0 valacyclovir [Valtrex] 1 gram Tablet 1,000 mg PO BID Qty: 60 RF: 0 albuterol sulfate 90 mcg/actuation HFA aerosol inhaler 2 puff inhalation QID PRN (Reason: wheezing) Qty: 1 RF: 0 acetaminophen 325 mg tablet 2 tab PO Q6H PRN (Reason: mild pain) RF: 0 nicotine 21 mg/24 hr patch 24 hour 1 patch topical DAILY RF: 0 sertraline 50 mg tablet 1 tab PO DAILY RF: 0 Spiriva Respimat 1.25 mcg/actuation mist 2 puff PO DAILY RF: 0 fluticasone propion-salmeterol 232-14 mcg/actuation aerosol powdr breath activated 1 puff inhalation BID RF: 0 ibuprofen 800 mg Tablet 800 mg PO TIDWM 30 Days Qty: 90 RF: 0 lithium carbonate 300 mg Tablet Extended Release 600 mg PO BID 15 Days Qty: 60 RF: 0 quetiapine 50 mg Tablet 50 mg PO BEDTIME 30 Days Qty: 30 RF: 0
[2021-02-09 21:43] LABS: Alanine Aminotransferase 18 U/L (0-31); Albumin Level 4.2 g/dL (3.5-5.0); Alkaline Phosphatase 74 U/L (39-117); Anion Gap 12 (12-20); Aspartate Amino Transferase 15 U/L (5-31); Bilirubin Total 0.2 mg/dL (0.0-1.0); Blood Urea Nitrogen 14 mg/dL (9-16); Calcium 9.1 mg/dL (8.4-10.2); Carbon Dioxide 27 mmol/L (22-29); Chloride 105 mmol/L (96-108); Creatinine Clr Calc Pharmacy 175.4; Estimated Glomerular Filt Rate > 60; Glucose Random 99 mg/dL (60-115); Potassium 4.2 mmol/L (3.3-5.1); Sodium 140 mmol/L (135-145); Total Protein 6.7 g/dL (6.5-8.0)
[2021-02-09 21:54] LABS: Amphetamine Screen Urine Not Detected (Not Detect); Barbiturates, Urine Not Detected (Not Detect); Benzodiazepines Screen Urine Not Detected (Not Detect); Cannabinoid Screen Urine Not Detected (Not Detect); Cocaine Screen Urine Not Detected (Not Detect); Opiate Screen Urine Not Detected (Not Detect); Phencyclidine Screen Urine Not Detected (Not Detect)
[2021-02-10] VITALS: BP 103/54; PULSE 86; RESP 16; TEMP 37.2; O2SAT 90
--- NOTE | 2021-02-10 01:15 | PC.NURSE ---
PT was seen in community by N. PT is inpatient bed search.
[2021-02-10 02:00] VITALS: RESP 16
[2021-02-10] MEDS: Omeprazole 20 MG CAPSULE.DR PO (06:27)
--- NOTE | 2021-02-10 07:10 | PC.NURSE ---
Report recieved. PT currently resting in community area, calm and cooperative. PT reporting increased depression, pt reporting hot/cold sweats, states she has been getting SOB frequently. PT is inpatient bedsearch.
[2021-02-10] MEDS: Ibuprofen 800 MG TABLET PO ×2 (08:43→12:56)
[2021-02-10] MEDS: Fluticasone/Vilanterol 100/25 BLST.W.DEV 1 PUFF INHALE (08:43)
[2021-02-10] MEDS: Cholecalciferol (Vitamin D3) 25 MCG TABLET PO (08:43)
[2021-02-10] MEDS: Docusate Sodium 100 MG CAPSULE PO (08:44)
[2021-02-10] MEDS: Ferrous Sulfate 324 MG TABLET.DR PO (08:44)
[2021-02-10] MEDS: Nicotine 21 MG PATCH.TD24 TRANSDERMA (08:44)
[2021-02-10] MEDS: Sertraline HCL 50 MG TABLET PO (08:44)
[2021-02-10 09:04] VITALS: BP 127/67; PULSE 85; RESP 16; TEMP 36.7; O2SAT 94
[2021-02-10 10:44] LABS: Lithium < 0.10 mmol/L (0.60-1.20)
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
--- NOTE | 2021-02-10 13:59 | PC.NURSE ---
PT asking to leave, denies SI/HI, plans to follow up with outpatient providers. Provider aware, care team aware.
== END 2021-02-10 14:07 | disposition home or self-care (01) ==
PROVIDERS: Nurse Practitioner Family; Nurse Practitioner Primary Care; Physician Assistant; Emergency Provider Emergency Medicine
DX: F31.9 Bipolar disorder, unspecified (principal); F60.3 Borderline personality disorder; R45.851 Suicidal ideations; F41.9 Anxiety disorder, unspecified; R06.2 Wheezing; Z20.822 Contact with and (suspected) exposure to COVID-19; J44.9 Chronic obstructive pulmonary disease, unspecified; F17.210 Nicotine dependence, cigarettes, uncomplicated; F14.90 Cocaine use, unspecified, uncomplicated; Z59.0 Homelessness; Z79.899 Other long term (current) drug therapy
CPT/HCPCS: 36415; 71045; 80053; 80178; 80307; 83605; 85025; 87040; 87635; 94640; 96365; 96375; 99284; 99285

== ENCOUNTER 2021-02-11 06:40 | Emergency (ER) | payer MEDICAID, SELFPAY ==
[2021-02-11 06:53] VITALS: BP 132/74; BP 132/75; PULSE 87; RESP 18; TEMP 37; O2SAT 97; BMI 35.5
--- NOTE | 2021-02-11 07:05 | ED_ITS ---
HPI - General Adult General Chief complaint: Psychiatric Symptoms Stated complaint: SI/HI,ANXIOUS Time Seen by Provider: 02/11/21 06:51 Source: patient Mode of arrival: EMS Limitations: no limitations History of Present Illness HPI narrative: 51-year-old female who presents emergency department for evaluation of suicidal homicidal ideation. She states that she has been off her medications for 5 days. She states that she has suicidal ideation and wants to take her air box tester and cut her neck and wrists. She states that she was very angry with her ex-boyfriend who will not leave her alone and she feels like she wants to cut him as well. She states that her anxiety and her depression is out of control. She was seen here in the emergency department on 02/09/2021 for similar complaints. She also had a cough at that time. The patient had an evaluation that included a chest x-ray, CBC, comprehensive metabolic panel and COVID testing. This workup was negative. The patient was evaluated by the crisis team and discharged home with a plan to restart lithium and follow-up as an outpatient. Patient states that she has not been able to get her lithium and continues to feel out of control, suicidal and homicidal therefore she called an ambulance and return to the emergency department for evaluation. Related Data Home Medications Medication Instructions Recorded Confirmed Spiriva Respimat 2 puff PO DAILY 01/12/21 02/10/21 acetaminophen 2 tab PO Q6H PRN 01/12/21 02/10/21 fluticasone propion-salmeterol 1 puff INHALATION BID 01/12/21 02/10/21 nicotine 1 patch TOPICAL DAILY 01/12/21 02/10/21 sertraline 1 tab PO DAILY 01/12/21 02/10/21 Previous Rx's Medication Instructions Recorded albuterol sulfate 2 puff INHALATION QID PRN #1 g 12/29/20 cholecalciferol (vitamin D3) 25 mcg PO DAILY #30 tab 12/29/20 docusate sodium 100 mg PO BID #60 cap 12/29/20 ferrous sulfate 324 mg PO DAILY #30 tab 12/29/20 omeprazole 20 mg PO DAILY@0630 #30 cap 12/29/20 trazodone 100 mg PO BEDTIME #30 tab 12/29/20 valacyclovir [Valtrex] 1,000 mg PO BID #60 tab 12/29/20 ibuprofen 800 mg PO TIDWM 30 Days #90 tab 01/20/21 lithium carbonate 600 mg PO BID 15 Days #60 tab 01/20/21 quetiapine 50 mg PO BEDTIME 30 Days #30 tab 01/20/21 Allergies Allergy/AdvReac Type Severity Reaction Status Date / Time aspirin [Aspirin] Allergy Severe HIVES,THROAT Verified 12/30/20 23:01 SWELLS bee pollen [BEE STINGS] Allergy Severe ANAPHYLAXIS Verified 12/30/20 23:01 diphenhydramine Allergy Severe hives, Verified 12/30/20 23:01 [From BENADRYL ALLERGY] throat swells Penicillins [PCN] Allergy Severe HIVES Verified 12/30/20 23:01 THROAT SWELLS Sulfa (Sulfonamide Allergy Intermediate HIVES Verified 12/30/20 23:01 Antibiotics) [SULFA (SULFONAMIDE ANTIBIOTICS)] tramadol [TRAMADOL] Allergy Intermediate ITCHING Verified 12/30/20 23:01 latex [LATEX] Allergy Unknown UNKNOWN Verified 12/30/20 23:01 penicillin G Allergy Unknown Unknown Verified 12/30/20 23:01 levofloxacin [From Levaquin] Allergy Hives Verified 12/30/20 23:01 bee stings Allergy Unknown Unknown Uncoded 12/12/20 20:36 DairyCare Allergy Unknown Unknown Uncoded 12/12/20 20:36 sulfa drugs Allergy Unknown Unknown Uncoded 12/12/20 20:36 Review of Systems Review of Systems: Yes all other systems are reviewed and are negative PMFSH Past Medical History [facility] Narrative: The patient smokes 2 packs of cigarettes per day times 30 years, she denies alcohol and tobacco use. Medical History Bipolar disorder Borderline personality disorder COPD (chronic obstructive pulmonary disease) Depression Herpes Tobacco use Surgical History History of ankle surgery History of appendectomy History of back surgery Hx of cholecystectomy Family History Family History Mother COPD (chronic obstructive pulmonary disease) Social History Social History Household Members: None Housing: Homeless Alcohol intake: never Smoking Status: Current some day smoker Tobacco Type: Cigarette Packs Per Day: 1 Cigarettes Per Day: 20.0 Years Smoked: 36 Second Hand Smoke Exposure: Yes Use of substances other than those prescribed or required for medical reasons: Yes Substance Use Type: Crack/Cocaine Advance Directives: No Advance Directives Information Provided: No service: No Current occupational status: unemployed Sexual orientation: Straight/Heterosexual Physical Exam Vital Signs: Vital Signs: Last Vital Signs Temp 98.6 F 02/11/21 06:53 Pulse 87 02/11/21 06:53 Resp 18 02/11/21 06:53 BP 132/75 02/11/21 06:53 Pulse Ox 97 02/11/21 06:53 Body Mass Index 35.5 Const: General: cooperative and other (Appears very anxious but was cooperative) Nutritional Appearance: overweight Orientation/consciousness: oriented to person and oriented to place Limitations: no limitations HENMT: Head: Yes normal to inspection, Yes normocephalic and Yes atraumatic Ears: external ears normal General nose exam: Normal external nose present Face and sinus: Yes normal facial exam Mouth: Normal oral and palatal mucosa present Throat: Yes posterior oropharynx normal Eyes: Periorbital: periorbital findings normal Eyelids: Yes eyelids normal Conjunctivae: conjunctivae normal Sclerae: sclerae normal Corneas: corneas normal Pupils: Equal, round and reactive pupils present Direct Ophthalmoscopy: normal light reflex Neck: Neck: Yes full ROM, Yes no lymphadenopathy, Yes no meningeal signs, Yes trachea midline and Yes supple Chest: Chest palpation & inspection: normal inspection of the chest and normal palpation of entire chest wall Resp: Effort & Inspection: normal respiratory effort and able to speak in complete sentences Auscultation: clear to auscultation bilaterally Cardio: Rate: regular rate Rhythm: regular rhythm Heart sounds: S1 normal heart sound present, S2 normal heart sound present and no murmurs GI: Inspection: Yes normal to inspection Palpation (GI): Soft to palpation, nontender, no guarding, not rigid and No hepatosplenomegaly present : General: Yes no CVA tenderness Back/Spine/Pelvis: Back: no CVA tenderness Cervical Spine: normal cervical lordosis Thoracic/Lumbar Spine: thoracic and lumbar spine normal to inspection Skin: Lesions: no lesions Rashes: no rashes Wounds: no wounds Neuro: General: oriented to person, oriented to place and no meningeal signs Cranial nerves: Yes CN's II-XII intact bilaterally and Yes Equal, round and reactive pupils present Cognition (Neuro): normal cognition Motor exam (neuro): 5/5 motor strength present throughout Extrem: General: Yes normal to inspection and Yes full ROM Psych: Appearance: well kempt Mental Status: mental status grossly normal Speech and movement: Normal speech and movement present Affect: Anxious affect present Attitude: cooperative Thought process: Normal thought process present Thought content: Suicidality present and Homicidality present Course Course Course Narrative: 51-year-old female with a history of psychiatric illness, noncompliant with her medications for 5 days, who presents emergency department for evaluation of suicidal and homicidal ideation with a plan to cut herself with a air box tester and to cut her ex-boyfriend. Patient was seen on 02/09/2021 with similar complaints and also complained of a cough at that time with a negative workup. I did order urine tox screen and Ativan 2 mg orally the patient will need a crisis consult. 1740: The laboratory evaluation was unremarkable. Patient's anxiety improved after receiving the above Ativan dose. The patient is still waiting for crisis evaluation therefore the patient's care was turned over to my colleague, Dr. Priscila Lynn. Medical Decision Making Lab Data Labs: Lab Results 02/11/21 Range/Units 08:29 Urine Opiates Screen Not Detected (Not Detect) Ur Barbiturates Screen Not Detected (Not Detect) Ur Phencyclidine Scrn Not Detected (Not Detect) Ur Amphetamines Screen Not Detected (Not Detect) U Benzodiazepines Scrn Not Detected (Not Detect) Urine Cocaine Screen Not Detected (Not Detect) U Marijuana (THC) Screen Not Detected (Not Detect) Discharge Plan Discharge Prescriptions: No Action trazodone 100 mg Tablet 100 mg PO BEDTIME Qty: 30 RF: 0 docusate sodium 100 mg Capsule 100 mg PO BID Qty: 60 RF: 0 omeprazole 20 mg Capsule,Delayed Release(Dr/Ec) 20 mg PO DAILY@0630 Qty: 30 RF: 0 ferrous sulfate 324 mg (65 mg iron) Tablet,Delayed Release (Dr/Ec) 324 mg PO DAILY Qty: 30 RF: 0 cholecalciferol (vitamin D3) 25 mcg (1,000 unit) Tablet 25 mcg PO DAILY Qty: 30 RF: 0 valacyclovir [Valtrex] 1 gram Tablet 1,000 mg PO BID Qty: 60 RF: 0 albuterol sulfate 90 mcg/actuation HFA aerosol inhaler 2 puff inhalation QID PRN (Reason: wheezing) Qty: 1 RF: 0 acetaminophen 325 mg tablet 2 tab PO Q6H PRN (Reason: mild pain) RF: 0 nicotine 21 mg/24 hr patch 24 hour 1 patch topical DAILY RF: 0 sertraline 50 mg tablet 1 tab PO DAILY RF: 0 Spiriva Respimat 1.25 mcg/actuation mist 2 puff PO DAILY RF: 0 fluticasone propion-salmeterol 232-14 mcg/actuation aerosol powdr breath activated 1 puff inhalation BID RF: 0 ibuprofen 800 mg Tablet 800 mg PO TIDWM 30 Days Qty: 90 RF: 0 lithium carbonate 300 mg Tablet Extended Release 600 mg PO BID 15 Days Qty: 60 RF: 0 quetiapine 50 mg Tablet 50 mg PO BEDTIME 30 Days Qty: 30 RF: 0
[2021-02-11] MEDS: LORazepam 1 MG TABLET 2 MG PO (07:47)
[2021-02-11 09:04] LABS: Amphetamine Screen Urine Not Detected (Not Detect); Barbiturates, Urine Not Detected (Not Detect); Benzodiazepines Screen Urine Not Detected (Not Detect); Cannabinoid Screen Urine Not Detected (Not Detect); Cocaine Screen Urine Not Detected (Not Detect); Opiate Screen Urine Not Detected (Not Detect); Phencyclidine Screen Urine Not Detected (Not Detect)
[2021-02-11] MEDS: Acetaminophen 325 MG TABLET 650 MG PO (11:43)
--- NOTE | 2021-02-11 13:40 | PC.NURSE ---
faxed to [facility]
--- NOTE | 2021-02-11 13:46 | PC.NURSE ---
pt calm and cooperative at this time- awaiting apriln
[2021-02-11 17:54] VITALS: BP 122/81; PULSE 86; RESP 16; O2SAT 95
--- NOTE | 2021-02-11 19:41 | PC.NURSE ---
REPORT TAKEN FROM AMIRA RN, FIRST CONTACT WITH PT. SITTING UP IN CHAIR, A&Ox4, SKIN PWD. RESPIRATIONS EVEN UNLABORED. DENIES SI AT THIS TIME, STATES FEELING BETTER SINCE ARRIVAL. QUESTIONSING PLAN OF CARE. THIS RN TO CONTACT N FOR UPDATE. PO REMAINS AT BEDSIDE FOR SAFETY.
[2021-02-11 19:53] VITALS: BP 128/71; PULSE 96; RESP 16; O2SAT 95
--- NOTE | 2021-02-11 20:02 | PC.NURSE ---
PT ON LIST TO BE SEEN PER N.
== END 2021-02-11 21:02 | disposition home or self-care (01) ==
PROVIDERS: Emergency Provider Emergency Medicine Emergency Medical Services
DX: F31.9 Bipolar disorder, unspecified (principal); F41.9 Anxiety disorder, unspecified; R45.851 Suicidal ideations; R45.850 Homicidal ideations; F60.3 Borderline personality disorder; Z91.14 Patient's other noncompliance with medication regimen; J44.9 Chronic obstructive pulmonary disease, unspecified; F17.210 Nicotine dependence, cigarettes, uncomplicated; Z59.0 Homelessness
CPT/HCPCS: 80307; 99285

== ENCOUNTER 2021-03-06 22:28 | Inpatient (IN) | payer OTHER, MEDICAID, SELFPAY ==
--- NOTE | ~2021-03-06 | CT_ITS ---
EXAMINATION: CT ABDOMEN AND PELVIS WITHOUT CONTRAST CLINICAL INFORMATION: epigastric/LLQ abd ttp. R/o SBO. constipated COMPARISON: CT abdomen pelvis 05/13/2020 TECHNIQUE: Multidetector volumetric imaging was performed from the superior aspect of the liver through the pubic symphysis. Sagittal and coronal reformatted images were obtained on the technologist's workstation. This CT examination was performed using dose optimization techniques as appropriate, variously including the following: *Automated exposure control *Adjustment of mA and/or kV according to patient size (this includes techniques or standardized protocols for targeted exams where dose is matched to indication/reason for exam; i.e. extremities or head) *Use of iterative reconstruction technique DLP: 966 mGy-cm FINDINGS: LUNG BASES: The visualized lung bases are unremarkable. LIVER, GALLBLADDER, AND BILIARY TREE: The liver is normal in size, shape, and attenuation. No focal hepatic lesion or biliary ductal dilatation is present. Status post cholecystectomy PANCREAS: Unremarkable. SPLEEN: Unremarkable. ADRENAL GLANDS: Unremarkable. KIDNEYS AND URETERS: The kidneys are normal in size, shape, and attenuation. Punctate nonobstructing renal calculi are present on the left with the largest measuring 3 mm. There may be some barely perceptible densities on the right. No hydronephrosis or hydroureter seen. There is a wedgelike area of scarring at the left upper pole as well as at the right upper pole. No perinephric stranding. BLADDER: Empty and poorly evaluated. No stones GASTROINTESTINAL TRACT: The small and large bowel are unremarkable. Previous edematous changes at the hepatic flexure have resolved The appendix is none seen but there is no evidence of appendicitis. ABDOMINAL WALL: No significant hernia is appreciated. A tiny ventral hernia is seen in the midline at the level of the bladder containing only fat and is unchanged. LYMPH NODES: A 7 mm lymph node or soft tissue density is present in the greater omentum (3:45) that is unchanged. No retroperitoneal lymphadenopathy seen. VASCULAR: Unremarkable. PELVIC VISCERA: An anteverted uterus is present. An abnormal adnexal mass is not seen. OSSEOUS STRUCTURES: Marked degenerative changes present at L5-S1. CT/CT abdomen pelvis wo con IMPRESSION: An etiology for the patient's epigastric and left lower quadrant pain has not been found. Incidental note made of: 1. Cholecystectomy 2. Left-sided nonobstructing punctate renal calculi 3. Tiny ventral hernia at the level of the bladder containing only fat 4. Stable 7 mm soft tissue mass anterior to: In the greater omentum 5. Marked degenerative changes L5-S1 6. Resolution of thickening of hepatic flexure
[2021-03-06 22:34] VITALS: BP 120/80; PULSE 99; RESP 20; TEMP 37.7; O2SAT 93; BMI 39.9
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
[2021-03-06 23:15] LABS: Glucose Urine UA NEG (NEG); Leukocyte Esterase Urine 3+ (NEG); Nitrite Urine NEG (NEG); PH 6.5 (5.0-8.0); Specific Gravity - Urine 1.025 (1.005-1.025); UACC Culture Trigger YES; Urine Blood TRACE (NEG); Urine Ketones NEG (NEG); Urine Protein 1+ MG/DL (NEG-TRACE)
[2021-03-06] MEDS: Magnesium Hydrox/Alum Hydrox 30 ML ORAL.SUSP PO (23:18)
[2021-03-06 23:20] LABS: Appearance Urine CLOUDY; Color Urine DARK YELLOW
[2021-03-06 23:27] LABS: UACC CULT YES; WBC Urine 50-75 /HPF (0-4)
[2021-03-06 23:28] LABS: Bacteria Urine 1+ /LPF; COVID-19 Test Negative (Negative); Mucus Urine TRACE /LPF; Renal Epithelial Cells Urine TRACE /LPF; Squamous Epithelial Cell Urine 2+ /LPF; Trichomonas Urine NOTED
[2021-03-06 23:38] LABS: Amphetamine Screen Urine Not Detected (Not Detect); Barbiturates, Urine Not Detected (Not Detect); Benzodiazepines Screen Urine Not Detected (Not Detect); Cannabinoid Screen Urine Not Detected (Not Detect); Cocaine Screen Urine POSITIVE (Not Detect); Opiate Screen Urine Not Detected (Not Detect); Phencyclidine Screen Urine Not Detected (Not Detect)
[2021-03-06] MEDS: Famotidine 20 MG TABLET PO (23:45)
[2021-03-06] MEDS: Lidocaine HCl Viscous 2 % 15 ML SOLUTION MUCOUS MEM (23:45)
[2021-03-06 23:47] LABS: MANUAL DIFF FLAG NO
[2021-03-06 23:55] LABS: Basophils Absolute Auto 0.1 X10*3/uL (0.0-0.2); Basophils Percent Auto 0.7 % (0-2); Eosinophils Percent Auto 0.1 % (0-4); Hematocrit 41.2 % (37-47); Hemoglobin 13.3 g/dl (12.0-16.0); Imm Gran Abs Auto 0.03 X10*3/uL (0.00-0.03); Imm Gran Pct Auto 0.3 % (0.0-0.4); Lymphocytes Absolute Auto 2.4 X10*3/uL (1.2-4.9); Lymphocytes Percent Auto 25.7 % (20-40); Mean Corpuscular HGB Conc 32.3 g/dl (31.0-35.0); Mean Corpuscular Hemoglobin 29.8 pg (27.0-33.0); Mean Corpuscular Volume 92.4 fL (80-98); Monocytes Absolute Auto 0.6 X10*3/uL (0.1-1.2); Monocytes Percent Auto 6.3 % (2-11); Neutrophils Absolute Auto 6.1 X10*3/uL (2.0-8.3); Neutrophils Percent Auto 66.9 % (45-73); Platelet Count 268 X10*3/uL (160-400); Red Blood Count 4.46 X10*6/uL (4.20-5.50); Red Cell Distribution Width 13.2 % (11.0-16.0); White Blood Count 9.2 X10*3/uL (4.8-10.8)
[2021-03-07 00:04] LABS: Lithium 0.46 mmol/L (0.60-1.20)
[2021-03-07 00:13] LABS: Alanine Aminotransferase 20 U/L (0-31); Albumin Level 4.3 g/dL (3.5-5.0); Alkaline Phosphatase 75 U/L (39-117); Anion Gap 11 (12-20); Aspartate Amino Transferase 16 U/L (5-31); Bilirubin Direct 0.2 mg/dL (0.0-0.5); Bilirubin Total 0.2 mg/dL (0.0-1.0); Blood Urea Nitrogen 19 mg/dL (9-16); Calcium 9.4 mg/dL (8.4-10.2); Carbon Dioxide 28 mmol/L (22-29); Chloride 103 mmol/L (96-108); Creatinine Clr Calc Pharmacy 91.7; Estimated Glomerular Filt Rate > 60; Glucose Random 141 mg/dL (60-115); Lipase 33 U/L (8-78); Potassium 3.9 mmol/L (3.3-5.1); Sodium 138 mmol/L (135-145); Total Protein 6.5 g/dL (6.5-8.0)
--- NOTE | 2021-03-07 01:13 | PC.NURSE ---
BHN faxed/called/spoke with Bola/confirmed receipt of referral, no ETA at this time.
[2021-03-07 06:15] VITALS: BP 117/61; PULSE 81; RESP 18; TEMP 37; O2SAT 93
[2021-03-07 06:41] LABS: Amphetamine Screen Urine Not Detected (Not Detect); Barbiturates, Urine Not Detected (Not Detect); Benzodiazepines Screen Urine Not Detected (Not Detect); Cannabinoid Screen Urine Not Detected (Not Detect); Cocaine Screen Urine POSITIVE (Not Detect); Opiate Screen Urine Not Detected (Not Detect); Phencyclidine Screen Urine Not Detected (Not Detect)
--- NOTE | 2021-03-07 07:14 | PC.NURSE ---
Report received from MELONY Berg. Pt resting, resp unlabored.
[2021-03-07 10:08] VITALS: BP 120/63; PULSE 76; RESP 15; TEMP 36.5; O2SAT 85
--- NOTE | 2021-03-07 10:15 | PC.NURSE ---
Pt awakeneed for vitals - affect even, no concerns reported, pt awaiting BHN evaluation.
[2021-03-07] MEDS: Nicotine 21 MG PATCH.TD24 TRANSDERMA (10:53)
[2021-03-07] MEDS: Cholecalciferol (Vitamin D3) 25 MCG TABLET PO (10:54)
[2021-03-07] MEDS: Sertraline HCL 50 MG TABLET PO (10:54)
[2021-03-07] MEDS: Docusate Sodium 100 MG CAPSULE PO ×2 (10:54→20:56)
[2021-03-07] MEDS: Omeprazole 20 MG CAPSULE.DR PO (10:54)
[2021-03-07] MEDS: Ferrous Sulfate 324 MG TABLET.DR PO (10:54)
--- NOTE | 2021-03-07 11:07 | PC.NURSE ---
CARE team in to assess pt
--- NOTE | 2021-03-07 11:45 | PC.NURSE ---
Pt currently showering, affect even, no concerns reported.
--- NOTE | 2021-03-07 12:20 | PC.NURSE ---
Pt reporting significant nikolai vaginal itching even after showering. Provider notified.
[2021-03-07 14:00] VITALS: RESP 20
--- NOTE | 2021-03-07 15:44 | PC.NURSE ---
Pt seen by provider, evaluated and tested for concerns as described.
[2021-03-07] MEDS: Fluconazole 150 MG TABLET PO (16:58)
--- NOTE | 2021-03-07 17:13 | PC.NURSE ---
Pt resting, resp unlabored
[2021-03-07 17:45] VITALS: BP 112/64; PULSE 87; RESP 20; TEMP 36.4; O2SAT 95
--- NOTE | 2021-03-07 18:12 | PC.NURSE ---
Pt resting in room, no concerns reported.
[2021-03-07] MEDS: Lithium Carbonate ER 300 MG TABLET.ER 600 MG PO (20:50)
[2021-03-07] MEDS: traZODone HCL 100 MG TABLET PO (20:50)
[2021-03-07] MEDS: metroNIDAZOLE 500 MG TABLET PO (20:50)
[2021-03-07] MEDS: polyethylene glycoL 3350 17 GM POWD.PACK PO (22:29)
[2021-03-08 06:23] VITALS: BP 105/67; PULSE 72; RESP 17; TEMP 36.4; O2SAT 94
[2021-03-08] MEDS: Omeprazole 20 MG CAPSULE.DR PO (06:24)
--- NOTE | 2021-03-08 07:08 | PC.NURSE ---
Report received from MELONY Berg. Pt resting, resp unlabored.
[2021-03-08] MEDS: Fluticasone/Vilanterol 200/25 BLST.W.DEV 1 PUFF INHALE (08:21)
[2021-03-08] MEDS: Nicotine 21 MG PATCH.TD24 TRANSDERMA (08:21)
[2021-03-08] MEDS: Ferrous Sulfate 324 MG TABLET.DR PO (08:22)
[2021-03-08] MEDS: metroNIDAZOLE 500 MG TABLET PO ×2 (08:22→20:51)
[2021-03-08] MEDS: Docusate Sodium 100 MG CAPSULE PO ×2 (08:23→20:52)
[2021-03-08] MEDS: Cholecalciferol (Vitamin D3) 25 MCG TABLET PO (08:23)
[2021-03-08] MEDS: Sertraline HCL 50 MG TABLET PO (08:24)
[2021-03-08 08:31] VITALS: BP 123/82; PULSE 81; RESP 16; TEMP 37.4; O2SAT 97
[2021-03-08 11:25] LABS: BV Int Neg Control Negative (Negative); BV Int Pos Control Positive (Positive)
--- NOTE | 2021-03-08 11:39 | PC.NURSE ---
Pt resting, resp unlabored
[2021-03-08 12:02] LABS: CT PCR NOT DETECTED (Not Detect.); NG PCR NOT DETECTED (Not Detect.)
[2021-03-08 14:00] VITALS: RESP 20
[2021-03-08] MEDS: bisacodyL 5 MG TABLET.DR 10 MG PO (14:20)
--- NOTE | 2021-03-08 16:29 | PC.NURSE ---
Pt resting in room, received dulcolax for continued constipation. No other concerns reported, affect even, pt pleasant.
[2021-03-08 16:41] VITALS: BP 109/63; PULSE 75; RESP 20; TEMP 36.1; O2SAT 95
--- NOTE | 2021-03-08 17:27 | PC.NURSE ---
Pt resting, resp unlabored
[2021-03-08] MEDS: Lithium Carbonate ER 300 MG TABLET.ER 600 MG PO (20:51)
[2021-03-08] MEDS: traZODone HCL 50 MG TABLET PO (20:51)
[2021-03-08] MEDS: traZODone HCL 100 MG TABLET PO (20:52)
[2021-03-09 01:18] VITALS: BP 100/65; PULSE 67; RESP 16; TEMP 36.3; O2SAT 94
[2021-03-09] MEDS: Omeprazole 20 MG CAPSULE.DR PO (05:42)
--- NOTE | 2021-03-09 07:03 | PC.NURSE ---
received report from prior nurse, patient remains apparently asleep a/e/b relaxed posture, even unlabored breaths. patient appears in no distress
[2021-03-09] MEDS: Fluticasone/Vilanterol 200/25 BLST.W.DEV 1 PUFF INHALE (08:07)
[2021-03-09] MEDS: metroNIDAZOLE 500 MG TABLET PO ×2 (08:07→20:38)
[2021-03-09] MEDS: Cholecalciferol (Vitamin D3) 25 MCG TABLET PO (08:07)
[2021-03-09] MEDS: Docusate Sodium 100 MG CAPSULE PO ×2 (08:07→20:38)
[2021-03-09] MEDS: Ferrous Sulfate 324 MG TABLET.DR PO (08:07)
[2021-03-09] MEDS: Sertraline HCL 50 MG TABLET PO (08:07)
[2021-03-09] MEDS: Nicotine 21 MG PATCH.TD24 TRANSDERMA (08:08)
[2021-03-09 09:38] VITALS: BP 112/73; PULSE 89; RESP 16; TEMP 36.8; O2SAT 95
--- NOTE | 2021-03-09 14:00 | MHC.CARE ---
CARE Team conducted a bed search conducted, the following facilities were contacted: [facility] -no [facility] - no [facility]- no [facility]- no [facility] [place] - no [facility] - [facility] - on wait list [facility] - voicemail left [facility]- no [facility]- Currently be reviewed [facility]- no [facility]- no [facility]- no [facility]- no [facility]- no
[2021-03-09 17:42] VITALS: BP 115/73; PULSE 85; RESP 18; TEMP 36.6; O2SAT 93
--- NOTE | 2021-03-09 19:08 | PC.NURSE ---
Report received. PT is eating in her room. Calm and cooperative. PT is inpatient bed search.
[2021-03-09] MEDS: Lithium Carbonate ER 300 MG TABLET.ER 600 MG PO (20:38)
[2021-03-09] MEDS: traZODone HCL 100 MG TABLET PO (20:38)
[2021-03-09] MEDS: Acetaminophen 325 MG TABLET 650 MG PO (21:08)
[2021-03-10 00:33] VITALS: BP 110/58; PULSE 85; RESP 18; TEMP 36.8; O2SAT 92
--- NOTE | 2021-03-10 06:54 | PC.NURSE ---
received report from previous shifts nurse patient remains asleep at present with even unlabored breaths patient appears in no distress
[2021-03-10] MEDS: Fluticasone/Vilanterol 200/25 BLST.W.DEV 1 PUFF INHALE (08:21)
[2021-03-10] MEDS: Omeprazole 20 MG CAPSULE.DR PO (08:21)
[2021-03-10] MEDS: Cholecalciferol (Vitamin D3) 25 MCG TABLET PO (08:22)
[2021-03-10] MEDS: Ferrous Sulfate 324 MG TABLET.DR PO (08:22)
[2021-03-10] MEDS: Nicotine 21 MG PATCH.TD24 TRANSDERMA (08:22)
[2021-03-10] MEDS: metroNIDAZOLE 500 MG TABLET PO ×2 (08:22→21:44)
[2021-03-10] MEDS: Sertraline HCL 50 MG TABLET PO (08:22)
[2021-03-10] MEDS: Docusate Sodium 100 MG CAPSULE PO ×2 (08:22→21:44)
--- NOTE | 2021-03-10 09:33 | ECG_ITS ---
Test Reason : CARDIAC HISTORY Blood Pressure : / mmHG Vent. Rate : 074 BPM Atrial Rate : 074 BPM P-R Int : 134 ms QRS Dur : 084 ms QT Int : 416 ms P-R-T Axes : 040 041 021 degrees QTc Int : 461 ms Normal sinus rhythm Normal ECG When compared with ECG of 31-DEC-2020 12:06, No significant change was found Referred By: Monisha Ricketts Electronically Signed By:Deangelo Gutierres
--- NOTE | 2021-03-10 14:20 | MHC.CARE ---
CARE called insurance at 1400 in order to present clinical and obtain auth however a clinician was not available and case was marked urgent.
--- NOTE | 2021-03-10 16:12 | PC.ADMIT ---
Addendum entered by Raimundo Delgado RN 03/10/21 22:16: Utox positive for cocaine 03/06/21 Original Note: Pt is a 51 year-old Citizen Of [place] speaking female who presents to from [facility] at approx 15;46 on a cv status. Pt is covid -. Pt was called 911 last night seeking help from a bridge where she was considering jumping into the water to end her life. Pt is presently homeless and was evicted two weeks ago. Pt reported that she had a recent binge of cocaine approximately $200 dollars worth, prior to admission. Pt appears anxious and agitated during admit. pt reported that she had SI with a plan to jump from a bridge into water. PT is diagnosed with Bipolar disorder and cocaine use. Pt does have outpt services in the community. Pt has hx of trauma. Pt denied AH/VH/pain/HI during admit. Pt is on 15 min safety checks. Pt reported to being on a Cpap machine in the past but has lost the machine due to being homeless. T/w will have pt follow-up with RT for a further evualtion.
[2021-03-10 18:15] VITALS: BP 140/67; PULSE 86; TEMP 36.6
[2021-03-10] MEDS: traZODone HCL 100 MG TABLET PO (21:44)
[2021-03-10] MEDS: Lithium Carbonate ER 300 MG TABLET.ER 600 MG PO (21:44)
[2021-03-11 06:00] VITALS: BP 109/64; PULSE 67; RESP 18; TEMP 37.1; O2SAT 94
[2021-03-11] MEDS: Nicotine 21 MG PATCH.TD24 TRANSDERMA (08:51)
[2021-03-11] MEDS: Ferrous Sulfate 324 MG TABLET.DR PO (08:52)
[2021-03-11] MEDS: Omeprazole 20 MG CAPSULE.DR PO (08:52)
[2021-03-11] MEDS: metroNIDAZOLE 500 MG TABLET PO ×2 (08:52→21:29)
[2021-03-11] MEDS: Cholecalciferol (Vitamin D3) 25 MCG TABLET PO (08:52)
[2021-03-11] MEDS: Sertraline HCL 50 MG TABLET PO (08:52)
[2021-03-11] MEDS: Fluticasone/Vilanterol 200/25 BLST.W.DEV 1 PUFF INHALE (08:53)
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
[2021-03-11 19:47] VITALS: BP 114/79; PULSE 86; RESP 16; O2SAT 98
[2021-03-11] MEDS: traZODone HCL 100 MG TABLET PO (21:29)
[2021-03-11] MEDS: Lithium Carbonate ER 300 MG TABLET.ER 600 MG PO (21:29)
[2021-03-12] MEDS: traZODone HCL 50 MG TABLET PO (02:23)
[2021-03-12] MEDS: Omeprazole 20 MG CAPSULE.DR PO (05:35)
[2021-03-12 06:00] VITALS: BP 108/63; PULSE 67; RESP 18; TEMP 36.6; O2SAT 97
[2021-03-12 07:00] VITALS: BMI 40.2
--- NOTE | 2021-03-12 09:20 | HO.PSYCHPN ---
Subjective Subjective Date of Service: 03/12/21 Reason For Visit: depression SI Interim History: Pt reports she's tired saying she hardly slept last night; she also reports she had a nightmare and would like to restart Prazosin. Pt says her mood is much better and she denies any SI. She feels like she's getting back to her normal self and thinks she'll be able to discharge next week. No other complaints; social and appropriate with peers. Attending group. Medication Compliance: Yes Side effects from medications: No Attending Groups: Yes Mental Status Exam Mental Status Exam Narrative: Pt is alert and oriented; behavior is cooperative, friendly and calm; patient is not in distress; dressed in casual attire with adequate hygiene; mood is described as tired and affect congruent; eye contact appropriate; Speech is normal rate, volume and prosody and not pressured; no psychomotor agitation/retardation present; thought process is organized, linear, logical and goal directed. Thought content is on getting treatment and otherwise pertinent to relevant topics and without any delusional content, paranoid ideations or grandiosity; denies any SI/HI. There is no evidence of perceptual disturbance. Patients insight and judgment appear intact. Diagnostics Vital Signs (24Hr): Vital Signs - 24 hr 03/11/21 19:47 03/12/21 06:00 Temperature 97.8 F Pulse Rate 86 67 Respiratory Rate 16 18 Blood Pressure 114/79 108/63 Pulse Oximetry 98 97 Body Mass Index 39.9 Labs Results: 03/06/21 23:40 03/06/21 23:40 Imaging Radiology Impressions: ITS Impressions Abdomen/Pelvis CT 03/06/21 23:01 IMPRESSION: An etiology for the patient's epigastric and left lower quadrant pain has not been found. Incidental note made of: 1. Cholecystectomy 2. Left-sided nonobstructing punctate renal calculi 3. Tiny ventral hernia at the level of the bladder containing only fat 4. Stable 7 mm soft tissue mass anterior to: In the greater omentum 5. Marked degenerative changes L5-S1 6. Resolution of thickening of hepatic flexure Medications Medications Current Medications Generic Name Dose Route Start Last Admin Trade Name Freq PRN Reason Stop Dose Admin Acetaminophen 650 mg 03/10/21 14:58 Acetaminophen 325 Mg Tablet PO Q6H PRN Headache/Pain Mild Scale (1-3) Al Hydroxide/Mg Hydroxide 30 ml 03/10/21 14:58 Magnesium Hydrox/Alum Hydrox 30 Ml Oral.Susp PO Q6H PRN Heartburn/Nausea Albuterol Sulfate 2 puff 03/07/21 09:59 Albuterol Sulfate 90 Mcg 8 Gm Inhaler INHALE QID PRN wheezing Benztropine Mesylate 1 mg 03/10/21 14:58 Benztropine Mesylate 1 Mg Tablet PO Q4H PRN dystonia Cefuroxime Axetil 250 mg 03/06/21 23:45 03/11/21 21:29 Cefuroxime Axetil 250 Mg Tablet PO 250 mg BID [facility] Administration Docusate Sodium 100 mg 03/07/21 10:00 03/11/21 21:15 Docusate Sodium 100 Mg Capsule PO Not Given BID [facility] Ferrous Sulfate 324 mg 03/07/21 10:00 03/11/21 08:52 Ferrous Sulfate 324 Mg Tablet. PO 324 mg DAILY [facility] Administration Fluticasone/Vilanterol 1 puff 03/08/21 08:00 03/11/21 08:53 Fluticasone/Vilanterol 200/25 Blst.W.Dev INHALE 1 puff RDAILY [facility] Administration Haloperidol 5 mg 03/10/21 14:58 Haloperidol 5 Mg Tablet PO Q4H PRN agitation [place] Carbonate 600 mg 03/11/21 21:00 03/11/21 21:29 [place] Carbonate Er 300 Mg Tablet.Er PO 600 mg BID [facility] Administration Lorazepam 2 mg 03/10/21 14:58 Lorazepam 1 Mg Tablet PO Q4H PRN agitation Magnesium Hydroxide 30 ml 03/10/21 14:58 Milk Of Magnesia 30 Ml Oral.Susp PO DAILY PRN Constipation Metronidazole 500 mg 03/07/21 21:00 03/11/21 21:29 Metronidazole 500 Mg Tablet PO 03/14/21 22:00 500 mg BID [facility] Administration Nicotine 21 mg 03/07/21 10:00 03/11/21 08:51 Nicotine 21 Mg Patch.Td24 TRANSDERMA 21 mg DAILY [facility] Administration Nystatin 1 appl 03/07/21 15:40 Nystatin Ointment 15 Gm Tube TOPICAL Q6H PRN Vaginal itching Protocol Omeprazole 20 mg 03/07/21 10:00 03/12/21 05:35 Omeprazole 20 Mg Capsule. PO 20 mg DAILY@0630 [facility] Administration Pharmacy Consult 1 each 03/06/21 23:01 Consult Rx Perform Med Rec MISCELLANE ONCE PRN Consult order Polyethylene Glycol 17 gm 03/07/21 21:37 03/07/21 22:29 Polyethylene Glycol 3350 17 Gm Powd.Pack PO 17 gm DAILY PRN Administration Constipation Sertraline HCl 75 mg 03/12/21 09:00 Sertraline Hcl 50 Mg Tablet PO DAILY [facility] Tiotropium [place] 1 puff 03/08/21 08:00 03/11/21 08:51 Tiotropium [place] 18 Mcg Cap.W.Dev INHALE 1 puff RDAILY [facility] Administration Trazodone HCl 100 mg 03/07/21 21:00 03/11/21 21:29 Trazodone Hcl 100 Mg Tablet PO 100 mg BEDTIME [facility] Administration Trazodone HCl 50 mg 03/11/21 14:22 03/12/21 02:23 Trazodone Hcl 50 Mg Tablet PO 50 mg BEDTIME PRN Administration continued insomnia Valacyclovir HCl 1,000 mg 03/07/21 10:00 03/11/21 21:29 Valacycyclovir Hcl 1,000 Mg Tablet PO 1,000 mg BID [facility] Administration Vitamin D 25 mcg 03/07/21 10:00 03/11/21 08:52 Cholecalciferol (Vitamin D3) 25 Mcg Tablet PO 25 mcg DAILY [facility] Administration Allergies Allergies Allergy/AdvReac Type Severity Reaction Status Date / Time aspirin [Aspirin] Allergy Severe HIVES,THROAT Verified 12/30/20 23:01 SWELLS bee pollen [BEE STINGS] Allergy Severe ANAPHYLAXIS Verified 12/30/20 23:01 diphenhydramine Allergy Severe hives, Verified 12/30/20 23:01 [From BENADRYL ALLERGY] throat swells Penicillins [PCN] Allergy Severe HIVES Verified 12/30/20 23:01 THROAT SWELLS Sulfa (Sulfonamide Allergy Intermediate HIVES Verified 12/30/20 23:01 Antibiotics) [SULFA (SULFONAMIDE ANTIBIOTICS)] tramadol [TRAMADOL] Allergy Intermediate ITCHING Verified 12/30/20 23:01 latex [LATEX] Allergy Unknown UNKNOWN Verified 12/30/20 23:01 penicillin G Allergy Unknown Unknown Verified 12/30/20 23:01 levofloxacin [From Levaquin] Allergy Hives Verified 12/30/20 23:01 bee stings Allergy Unknown Unknown Uncoded 12/12/20 20:36 D[employer] Allergy Unknown Unknown Uncoded 12/12/20 20:36 sulfa drugs Allergy Unknown Unknown Uncoded 12/12/20 20:36 Assessment & Plan Assessment & Plan (1) Bipolar disorder, current episode depressed, mild or moderate severity, unspecified: Status: Chronic Code(s): F31.30 - Bipolar disorder, current episode depressed, mild or moderate severity, unspecified (2) Asthma exacerbation in COPD: Status: Acute Code(s): J44.1 - Chronic obstructive pulmonary disease with (acute) exacerbation; J45.901 - Unspecified asthma with (acute) exacerbation (3) Borderline personality disorder: Status: Acute Code(s): F60.3 - Borderline personality disorder (4) Hip pain: Status: Acute Code(s): M25.559 - Pain in unspecified hip (5) FABIOLA (obstructive sleep apnea): Status: Acute Code(s): G47.33 - Obstructive sleep apnea (adult) (pediatric) (6) PTSD (post-traumatic stress disorder): Status: Chronic Code(s): F43.10 - Post-traumatic stress disorder, unspecified Assessment and Plan: Patient is a 51 yo female with hx of bipolar disorder, PtSD, FABIOLA, substance abuse and personality disorder who presents with depression and SI in face of going off meds, relapsing on cocaine and psychosocial stressors. Pt signed a CV. She was restarted on her medications in ED and on admission, depression lessened and SI resolved. Pt current presentation is similar to her past admissions; she has long hx of emotional reactivity and intermittently goes off her medications which often coincides with relapsing on cocaine. She has no symptoms of eva and denies any recent manic episodes. Pt's lithium is being titrated to home dose and Sertraline increased. Currently she is stabilizing. Pt asks for help with aftercare. stabilizing PLAN: continue [place] ER at home dose of 600mg BID (home dose) ordered labs/level Respiratory consult placed for FABIOLA (pt lost CPAP) will add Prazosin 1mg for nightmares; low concern for being overly sedated since not on cpap; however pt has tolerated regimen in past w/out cpap. continue sertraline to 75mg for ptsd and anxiety continue ABX for UTI/vaginosis/Trichomonas SW to work on Dispo options Greater than 50% of the session was spent on counseling and/or coordination of care Reason for contiued inpatient stay Substantial Risk for: rapid decompensation
[2021-03-12] MEDS: Lithium Carbonate ER 300 MG TABLET.ER 600 MG PO ×2 (10:01→21:45)
[2021-03-12] MEDS: Cholecalciferol (Vitamin D3) 25 MCG TABLET PO (10:01)
[2021-03-12] MEDS: Ferrous Sulfate 324 MG TABLET.DR PO (10:01)
[2021-03-12] MEDS: metroNIDAZOLE 500 MG TABLET PO ×2 (10:02→21:53)
[2021-03-12] MEDS: Sertraline HCL 50 MG TABLET 75 MG PO (10:02)
[2021-03-12] MEDS: Nicotine 21 MG PATCH.TD24 TRANSDERMA (10:03)
[2021-03-12] MEDS: Fluticasone/Vilanterol 200/25 BLST.W.DEV 1 PUFF INHALE (10:07)
[2021-03-12 17:37] VITALS: BP 126/67; PULSE 75; RESP 14; TEMP 36.9; O2SAT 96
[2021-03-12 21:53] VITALS: BP 126/66; PULSE 78
[2021-03-12] MEDS: Prazosin HCL 1 MG CAPSULE PO (21:53)
[2021-03-12] MEDS: traZODone HCL 100 MG TABLET PO (21:53)
[2021-03-13 06:00] VITALS: BP 114/77; PULSE 77; RESP 18; TEMP 36.4; O2SAT 95
[2021-03-13] MEDS: Omeprazole 20 MG CAPSULE.DR PO (06:11)
--- NOTE | 2021-03-13 09:08 | P.PNPSI_ITS ---
Subjective Subjective Date of Service: 03/13/21 Reason For Visit: depression SI Interim History: Pt reports mood remains good and no SI. She continues to feel stable. However, she complains of continued difficulty falling asleep and when she does, she has a nightmare. Pt says she is very sleepy. Currently no manic symptoms present but pt says she's worried that if she does not sleep, she'll become manic. Pt did nap during the day and senior underwriter strongly encouraged her to avoid napping since that will interfere with sleep at bedtime, however patient said she was too tired to avoid it. Pt agreed to increase in Trazodone for now. Wireless Network Engineer will also add Ativan at bedtime to help initiate sleep. Medication Compliance: Yes Side effects from medications: No Attending Groups: Yes Mental Status Exam Mental Status Exam Narrative: Pt is alert and oriented; behavior is cooperative, friendly and calm; patient is not in distress; dressed in casual attire with adequate hygiene; mood is described as good and affect congruent; eye contact appropriate; Speech is normal rate, volume and prosody and not pressured; no psychomotor agitation/retardation present; thought process is organized, linear, logical and goal directed. Thought content is on getting treatment and otherwise pertinent to relevant topics and without any delusional content, paranoid ideations or grandiosity; denies any SI/HI. There is no evidence of perceptual disturbance. Patients insight and judgment appear intact. Diagnostics Vital Signs (24Hr): Vital Signs - 24 hr 03/12/21 17:37 03/12/21 21:53 03/13/21 06:00 Temperature 98.4 F 97.6 F Pulse Rate 75 78 77 Respiratory Rate 14 18 Blood Pressure 126/67 126/66 114/77 Pulse Oximetry 96 95 Body Mass Index 40.2 Labs Results: 03/06/21 23:40 03/06/21 23:40 Imaging Radiology Impressions: ITS Impressions Abdomen/Pelvis CT 03/06/21 23:01 IMPRESSION: An etiology for the patient's epigastric and left lower quadrant pain has not been found. Incidental note made of: 1. Cholecystectomy 2. Left-sided nonobstructing punctate renal calculi 3. Tiny ventral hernia at the level of the bladder containing only fat 4. Stable 7 mm soft tissue mass anterior to: In the greater omentum 5. Marked degenerative changes L5-S1 6. Resolution of thickening of hepatic flexure Medications Medications Current Medications Generic Name Dose Route Start Last Admin Trade Name Freq PRN Reason Stop Dose Admin Acetaminophen 650 mg 03/10/21 14:58 Acetaminophen 325 Mg Tablet PO Q6H PRN Headache/Pain Mild Scale (1-3) Al Hydroxide/Mg Hydroxide 30 ml 03/10/21 14:58 Magnesium Hydrox/Alum Hydrox 30 Ml Oral.Susp PO Q6H PRN Heartburn/Nausea Albuterol Sulfate 2 puff 03/07/21 09:59 Albuterol Sulfate 90 Mcg 8 Gm Inhaler INHALE QID PRN wheezing Benztropine Mesylate 1 mg 03/10/21 14:58 Benztropine Mesylate 1 Mg Tablet PO Q4H PRN dystonia Cefuroxime Axetil 250 mg 03/06/21 23:45 03/12/21 21:53 Cefuroxime Axetil 250 Mg Tablet PO 250 mg BID TEJA Administration Docusate Sodium 100 mg 03/07/21 10:00 03/12/21 21:58 Docusate Sodium 100 Mg Capsule PO Not Given BID TEJA Ferrous Sulfate 324 mg 03/07/21 10:00 03/12/21 10:01 Ferrous Sulfate 324 Mg Tablet.Dr PO 324 mg DAILY TEJA Administration Fluticasone/Vilanterol 1 puff 03/08/21 08:00 03/12/21 10:07 Fluticasone/Vilanterol 200/25 Blst.W.Dev INHALE 1 puff RDAILY TEJA Administration Haloperidol 5 mg 03/10/21 14:58 Haloperidol 5 Mg Tablet PO Q4H PRN agitation [place] Carbonate 600 mg 03/11/21 21:00 03/12/21 21:45 [place] Carbonate Er 300 Mg Tablet.Er PO 600 mg BID TEJA Administration Lorazepam 2 mg 03/10/21 14:58 Lorazepam 1 Mg Tablet PO Q4H PRN agitation Magnesium Hydroxide 30 ml 03/10/21 14:58 Milk Of Magnesia 30 Ml Oral.Susp PO DAILY PRN Constipation Metronidazole 500 mg 03/07/21 21:00 03/12/21 21:53 Metronidazole 500 Mg Tablet PO 03/14/21 22:00 500 mg BID TEJA Administration Nicotine 21 mg 03/07/21 10:00 03/12/21 10:03 Nicotine 21 Mg Patch.Td24 TRANSDERMA 21 mg DAILY TEJA Administration Nystatin 1 appl 03/07/21 15:40 Nystatin Ointment 15 Gm Tube TOPICAL Q6H PRN Vaginal itching Protocol Omeprazole 20 mg 03/07/21 10:00 03/13/21 06:11 Omeprazole 20 Mg Capsule.Dr PO 20 mg DAILY@0630 [facility] Administration Pharmacy Consult 1 each 03/06/21 23:01 Consult Rx Perform Med Rec MISCELLANE ONCE PRN Consult order Polyethylene Glycol 17 gm 03/07/21 21:37 03/07/21 22:29 Polyethylene Glycol 3350 17 Gm Powd.Pack PO 17 gm DAILY PRN Administration Constipation Prazosin HCl 1 mg 03/12/21 21:00 03/12/21 21:53 Prazosin Hcl 1 Mg Capsule PO 1 mg BEDTIME TEJA Administration Protocol Sertraline HCl 75 mg 03/12/21 09:00 03/12/21 10:02 Sertraline Hcl 50 Mg Tablet PO 75 mg DAILY TEJA Administration Tiotropium [place] 1 puff 03/08/21 08:00 03/12/21 10:06 Tiotropium [place] 18 Mcg Cap.W.Dev INHALE 1 puff RDAILY TEJA Administration Trazodone HCl 100 mg 03/07/21 21:00 03/12/21 21:53 Trazodone Hcl 100 Mg Tablet PO 100 mg BEDTIME TEJA Administration Trazodone HCl 50 mg 03/11/21 14:22 03/12/21 02:23 Trazodone Hcl 50 Mg Tablet PO 50 mg BEDTIME PRN Administration continued insomnia Valacyclovir HCl 1,000 mg 03/07/21 10:00 03/12/21 22:40 Valacycyclovir Hcl 1,000 Mg Tablet PO 1,000 mg BID TEJA Administration Vitamin D 25 mcg 03/07/21 10:00 03/12/21 10:01 Cholecalciferol (Vitamin D3) 25 Mcg Tablet PO 25 mcg DAILY TEJA Administration Allergies Allergies Allergy/AdvReac Type Severity Reaction Status Date / Time aspirin [Aspirin] Allergy Severe HIVES,THROAT Verified 12/30/20 23:01 SWELLS bee pollen [BEE STINGS] Allergy Severe ANAPHYLAXIS Verified 12/30/20 23:01 diphenhydramine Allergy Severe hives, Verified 12/30/20 23:01 [From BENADRYL ALLERGY] throat swells Penicillins [PCN] Allergy Severe HIVES Verified 12/30/20 23:01 THROAT SWELLS Sulfa (Sulfonamide Allergy Intermediate HIVES Verified 12/30/20 23:01 Antibiotics) [SULFA (SULFONAMIDE ANTIBIOTICS)] tramadol [TRAMADOL] Allergy Intermediate ITCHING Verified 12/30/20 23:01 latex [LATEX] Allergy Unknown UNKNOWN Verified 12/30/20 23:01 penicillin G Allergy Unknown Unknown Verified 12/30/20 23:01 levofloxacin [From Levaquin] Allergy Hives Verified 12/30/20 23:01 bee stings Allergy Unknown Unknown Uncoded 12/12/20 20:36 DairyCare Allergy Unknown Unknown Uncoded 12/12/20 20:36 sulfa drugs Allergy Unknown Unknown Uncoded 12/12/20 20:36 Assessment & Plan Assessment & Plan (1) Bipolar disorder, current episode depressed, mild or moderate severity, unspecified: Status: Chronic Code(s): F31.30 - Bipolar disorder, current episode depressed, mild or moderate severity, unspecified (2) Asthma exacerbation in COPD: Status: Acute Code(s): J44.1 - Chronic obstructive pulmonary disease with (acute) exacerbation; J45.901 - Unspecified asthma with (acute) exacerbation (3) Borderline personality disorder: Status: Acute Code(s): F60.3 - Borderline personality disorder (4) Hip pain: Status: Acute Code(s): M25.559 - Pain in unspecified hip (5) FABIOLA (obstructive sleep apnea): Status: Acute Code(s): G47.33 - Obstructive sleep apnea (adult) (pediatric) (6) PTSD (post-traumatic stress disorder): Status: Chronic Code(s): F43.10 - Post-traumatic stress disorder, unspecified Assessment and Plan: Patient is a 51 yo female with hx of bipolar disorder, PtSD, FABIOLA, substance abuse and personality disorder who presents with depression and SI in face of going off meds, relapsing on cocaine and psychosocial stressors. Pt signed a CV. She was restarted on her medications in ED and on admission, depression lessened and SI resolved. Pt current presentation is similar to her past admissions; she has long hx of emotional reactivity and intermittently goes off her medications which often coincides with relapsing on cocaine. She has no symptoms of eva and denies any recent manic episodes. Pt's lithium is being titrated to home dose and Sertraline increased. Currently she is stabilizing. Pt asks for help with aftercare. stabilizing PLAN: increased Trazodone to 150mg since patient is having trouble falling asleep; want to avoid triggering manic episode Also add one time dose of Ativan 1mg for bed on 03/13/21 only to help initiate sleep continue [place] [facility] at home dose of 600mg BID (home dose) ordered labs/level Respiratory consult placed for FABIOLA (pt lost CPAP) consider increasing Prazosin further (currently Prazosin 1mg for nightmares; low concern for being overly sedated since not on cpap; however pt has tolerated regimen in past w/out cpap. continue sertraline to 75mg for ptsd and anxiety continue ABX for UTI/vaginosis/Trichomonas SW to work on Dispo options Greater than 50% of the session was spent on counseling and/or coordination of care Reason for contiued inpatient stay Substantial Risk for: med/psych decompensation
[2021-03-13] MEDS: Nicotine 21 MG PATCH.TD24 TRANSDERMA (09:19)
[2021-03-13] MEDS: Lithium Carbonate ER 300 MG TABLET.ER 600 MG PO ×2 (09:20→20:12)
[2021-03-13] MEDS: Sertraline HCL 50 MG TABLET 75 MG PO (09:20)
[2021-03-13] MEDS: metroNIDAZOLE 500 MG TABLET PO ×2 (09:21→20:12)
[2021-03-13] MEDS: Ferrous Sulfate 324 MG TABLET.DR PO (09:21)
[2021-03-13] MEDS: Docusate Sodium 100 MG CAPSULE PO (09:21)
[2021-03-13] MEDS: Cholecalciferol (Vitamin D3) 25 MCG TABLET PO (09:21)
[2021-03-13] MEDS: Fluticasone/Vilanterol 200/25 BLST.W.DEV 1 PUFF INHALE (09:28)
[2021-03-13] MEDS: HaloperidoL 5 MG TABLET PO (17:37)
[2021-03-13] MEDS: Benztropine Mesylate 1 MG TABLET PO (17:37)
[2021-03-13] MEDS: LORazepam 1 MG TABLET 2 MG PO (17:37)
[2021-03-13 18:00] VITALS: BP 131/74; PULSE 83; TEMP 36.8
[2021-03-13 20:11] VITALS: BP 131/74; PULSE 83
[2021-03-13] MEDS: Prazosin HCL 1 MG CAPSULE PO (20:11)
[2021-03-13] MEDS: LORazepam 1 MG TABLET PO (20:12)
[2021-03-13] MEDS: traZODone HCL 50 MG TABLET 150 MG PO (20:13)
[2021-03-14] MEDS: Omeprazole 20 MG CAPSULE.DR PO (05:50)
[2021-03-14 05:55] VITALS: BP 141/83; PULSE 72; RESP 16; TEMP 36.2; O2SAT 96
[2021-03-14] MEDS: Sertraline HCL 50 MG TABLET 75 MG PO (09:11)
[2021-03-14] MEDS: Ferrous Sulfate 324 MG TABLET.DR PO (09:12)
[2021-03-14] MEDS: Cholecalciferol (Vitamin D3) 25 MCG TABLET PO (09:12)
[2021-03-14] MEDS: Docusate Sodium 100 MG CAPSULE PO (09:13)
[2021-03-14] MEDS: metroNIDAZOLE 500 MG TABLET PO ×2 (09:13→22:04)
[2021-03-14] MEDS: Lithium Carbonate ER 300 MG TABLET.ER 600 MG PO ×2 (09:13→22:04)
[2021-03-14] MEDS: Fluticasone/Vilanterol 200/25 BLST.W.DEV 1 PUFF INHALE (09:16)
[2021-03-14] MEDS: Nicotine 21 MG PATCH.TD24 TRANSDERMA (10:08)
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
[2021-03-14 18:00] VITALS: BP 122/68; PULSE 80; RESP 16; TEMP 36.6; O2SAT 95
[2021-03-14 22:00] VITALS: PULSE 80; O2SAT 95
[2021-03-14] MEDS: traZODone HCL 50 MG TABLET 150 MG PO (22:04)
[2021-03-14] MEDS: Prazosin HCL 1 MG CAPSULE PO (22:04)
--- NOTE | 2021-03-14 23:47 | PC.NURSE ---
Spoke with respiratory regarding pt's arrangement to use a hospital CPAP. They suggested that because she does not have a recent sleep study on file and they are not positive of what the settings on the machine should be, that the order for CPAP should be for auto-flow 4-20 . However, as there was no option for this particular setting in the order, respiratory suggested that the doctor order the setting to be at 4 . Ligia Cortez NP was notified and order adjusted to reflect this recommendation. Respiratory was up to the unit to set up pt's machine. She is currently in bed, appears to be asleep, using CPAP machine.
[2021-03-15] MEDS: Omeprazole 20 MG CAPSULE.DR PO (05:53)
[2021-03-15 06:37] VITALS: BP 113/64; PULSE 68; TEMP 36.3; O2SAT 94
[2021-03-15] MEDS: Nicotine 21 MG PATCH.TD24 TRANSDERMA (08:49)
[2021-03-15] MEDS: Lithium Carbonate ER 300 MG TABLET.ER 600 MG PO ×2 (08:52→22:25)
[2021-03-15] MEDS: Fluticasone/Vilanterol 200/25 BLST.W.DEV 1 PUFF INHALE (08:52)
[2021-03-15] MEDS: Cholecalciferol (Vitamin D3) 25 MCG TABLET PO (08:53)
[2021-03-15] MEDS: Sertraline HCL 50 MG TABLET 75 MG PO (08:54)
[2021-03-15] MEDS: Ferrous Sulfate 324 MG TABLET.DR PO (09:05)
--- NOTE | 2021-03-15 10:02 | PC.NURSE ---
patient appears to be having a pleasant morning, social with some peers, did make mild negative comment toward peer who made loud outburst in group room if you want to yell go to your damn room pleasant and smiling in interaction with staff
--- NOTE | 2021-03-15 11:39 | P.PNPSI_ITS ---
Subjective Subjective Date of Service: 03/15/21 Reason For Visit: depression SI Interim History: Pt reports significant improve in sleep with CPAP. She reports she is doing well. She denies symptoms of depression or anxiety. She does have explosive tendencies when gets upset but no behavioral concerns have been noted. She denies SI/HI. No VH/AH. She is taking medications as prescribed. MSE Appearance: casually groomed, fair hygiene, in NAD Behavior: calm, cooperative Psychomotor: no agitation or retardation noted Speech: clear, normal rate/rhythm/volume, spontaneous TP: tangential TC: no signs of psychosis, looking forward to be discharged Mood: good Affect:congruent, non labile SI:denies HI:denies AH/VH:none Delusions:none Insight/judgment:poor x 2. Memory/cog: alert, oriented x 3. Review of Systems Review of Systems Constitutional: No Fever, No Chills Cardiovascular: No Chest Pain, No SOB, No Edema, No Palpitations Respiratory: No Cough, No Wheezing, No Dyspnea Gastrointestinal: + Nausea, No Vomiting, No Diarrhea, + Constipation, + Abdominal pain Genitourinary: No Dysuria, No Urinary Frequency, No Hematuria Musculoskeletal: No joint pain, No Myalgias Skin: No Skin Lesions, No rash Neuro: No Weakness, No Numbness Psych: No Anxiety/Panic, + Depression, + SI/HI Yes all other systems are reviewed and are negative Diagnostics Vital Signs (24Hr): Vital Signs - 24 hr 03/14/21 18:00 03/15/21 06:37 Temperature 97.9 F 97.3 F Pulse Rate 80 68 Respiratory Rate 16 Blood Pressure 122/68 113/64 Pulse Oximetry 95 94 Body Mass Index 40.2 Labs Results: 03/06/21 23:40 03/06/21 23:40 Imaging Radiology Impressions: ITS Impressions Abdomen/Pelvis CT 03/06/21 23:01 IMPRESSION: An etiology for the patient's epigastric and left lower quadrant pain has not been found. Incidental note made of: 1. Cholecystectomy 2. Left-sided nonobstructing punctate renal calculi 3. Tiny ventral hernia at the level of the bladder containing only fat 4. Stable 7 mm soft tissue mass anterior to: In the greater omentum 5. Marked degenerative changes L5-S1 6. Resolution of thickening of hepatic flexure Medications Medications Current Medications Generic Name Dose Route Start Last Admin Trade Name Freq PRN Reason Stop Dose Admin Acetaminophen 650 mg 03/10/21 14:58 Acetaminophen 325 Mg Tablet PO Q6H PRN Headache/Pain Mild Scale (1-3) Al Hydroxide/Mg Hydroxide 30 ml 03/10/21 14:58 Magnesium Hydrox/Alum Hydrox 30 Ml Oral.Susp PO Q6H PRN Heartburn/Nausea Albuterol Sulfate 2 puff 03/07/21 09:59 Albuterol Sulfate 90 Mcg 8 Gm Inhaler INHALE QID PRN wheezing Benztropine Mesylate 1 mg 03/10/21 14:58 03/13/21 17:37 Benztropine Mesylate 1 Mg Tablet PO 1 mg Q4H PRN Administration dystonia Docusate Sodium 100 mg 03/07/21 10:00 03/15/21 08:55 Docusate Sodium 100 Mg Capsule PO Not Given BID [facility] Ferrous Sulfate 324 mg 03/07/21 10:00 03/15/21 09:05 Ferrous Sulfate 324 Mg Tablet. PO 324 mg DAILY TEJA Administration Fluticasone/Vilanterol 1 puff 03/08/21 08:00 03/15/21 08:52 Fluticasone/Vilanterol 200/25 Blst.W.Dev INHALE 1 puff RDAILY TEJA Administration Haloperidol 5 mg 03/10/21 14:58 03/13/21 17:37 Haloperidol 5 Mg Tablet PO 5 mg Q4H PRN Administration agitation [place] Carbonate 600 mg 03/11/21 21:00 03/15/21 08:52 [place] Carbonate Er 300 Mg Tablet.Er PO 600 mg BID TEJA Administration Lorazepam 2 mg 03/10/21 14:58 03/13/21 17:37 Lorazepam 1 Mg Tablet PO 2 mg Q4H PRN Administration agitation Magnesium Hydroxide 30 ml 03/10/21 14:58 Milk Of Magnesia 30 Ml Oral.Susp PO DAILY PRN Constipation Nicotine 21 mg 03/07/21 10:00 03/15/21 08:49 Nicotine 21 Mg Patch.Td24 TRANSDERMA 21 mg DAILY TEJA Administration Nystatin 1 appl 03/07/21 15:40 Nystatin Ointment 15 Gm Tube TOPICAL Q6H PRN Vaginal itching Protocol Omeprazole 20 mg 03/07/21 10:00 03/15/21 05:53 Omeprazole 20 Mg Capsule. PO 20 mg DAILY@0630 [facility] Administration Pharmacy Consult 1 each 03/06/21 23:01 Consult Rx Perform Med Rec MISCELLANE ONCE PRN Consult order Polyethylene Glycol 17 gm 03/07/21 21:37 03/07/21 22:29 Polyethylene Glycol 3350 17 Gm Powd.Pack PO 17 gm DAILY PRN Administration Constipation Prazosin HCl 1 mg 03/12/21 21:00 03/14/21 22:04 Prazosin Hcl 1 Mg Capsule PO 1 mg BEDTIME TEJA Administration Protocol Sertraline HCl 75 mg 03/12/21 09:00 03/15/21 08:54 Sertraline Hcl 50 Mg Tablet PO 75 mg DAILY TEJA Administration Tiotropium [place] 1 puff 03/08/21 08:00 03/15/21 08:52 Tiotropium [place] 18 Mcg Cap.W.Dev INHALE 1 puff RDAILY TEJA Administration Trazodone HCl 50 mg 03/11/21 14:22 03/12/21 02:23 Trazodone Hcl 50 Mg Tablet PO 50 mg BEDTIME PRN Administration continued insomnia Trazodone HCl 150 mg 03/13/21 21:00 03/14/21 22:04 Trazodone Hcl 50 Mg Tablet PO 150 mg BEDTIME TEJA Administration Valacyclovir HCl 1,000 mg 03/07/21 10:00 03/15/21 09:46 Valacycyclovir Hcl 1,000 Mg Tablet PO 1,000 mg BID TEJA Administration Vitamin D 25 mcg 03/07/21 10:00 03/15/21 08:53 Cholecalciferol (Vitamin D3) 25 Mcg Tablet PO 25 mcg DAILY TEJA Administration Allergies Allergies Allergy/AdvReac Type Severity Reaction Status Date / Time aspirin [Aspirin] Allergy Severe HIVES,THROAT Verified 12/30/20 23:01 SWELLS bee pollen [BEE STINGS] Allergy Severe ANAPHYLAXIS Verified 12/30/20 23:01 diphenhydramine Allergy Severe hives, Verified 12/30/20 23:01 [From BENADRYL ALLERGY] throat swells Penicillins [PCN] Allergy Severe HIVES Verified 12/30/20 23:01 THROAT SWELLS Sulfa (Sulfonamide Allergy Intermediate HIVES Verified 12/30/20 23:01 Antibiotics) [SULFA (SULFONAMIDE ANTIBIOTICS)] tramadol [TRAMADOL] Allergy Intermediate ITCHING Verified 12/30/20 23:01 latex [LATEX] Allergy Unknown UNKNOWN Verified 12/30/20 23:01 penicillin G Allergy Unknown Unknown Verified 12/30/20 23:01 levofloxacin [From Levaquin] Allergy Hives Verified 12/30/20 23:01 bee stings Allergy Unknown Unknown Uncoded 12/12/20 20:36 DairyCare Allergy Unknown Unknown Uncoded 12/12/20 20:36 sulfa drugs Allergy Unknown Unknown Uncoded 12/12/20 20:36 Assessment & Plan Assessment & Plan (1) Bipolar disorder, current episode depressed, mild or moderate severity, unspecified: Status: Chronic Code(s): F31.30 - Bipolar disorder, current episode depressed, mild or moderate severity, unspecified (2) Asthma exacerbation in COPD: Status: Acute Code(s): J44.1 - Chronic obstructive pulmonary disease with (acute) exacerbation; J45.901 - Unspecified asthma with (acute) exacerbation (3) Borderline personality disorder: Status: Acute Code(s): F60.3 - Borderline personality disorder (4) Hip pain: Status: Acute Code(s): M25.559 - Pain in unspecified hip (5) FABIOLA (obstructive sleep apnea): Status: Acute Code(s): G47.33 - Obstructive sleep apnea (adult) (pediatric) (6) PTSD (post-traumatic stress disorder): Status: Chronic Code(s): F43.10 - Post-traumatic stress disorder, unspecified Assessment and Plan: Patient is a 51 yo female with hx of bipolar disorder, PtSD, FABIOLA, substance abuse and personality disorder who presents with depression and SI in face of going off meds, relapsing on cocaine and psychosocial stressors. Pt signed a CV. She was restarted on her medications in ED and on admission, depression lessened and SI resolved. Pt current presentation is similar to her past admissions; she has long hx of emotional reactivity and intermittently goes off her medications which often coincides with relapsing on cocaine. She has no symptoms of eva and denies any recent manic episodes. Pt's lithium is being titrated to home dose and Sertraline increased. Currently she is stabilizing. Pt asks for help with aftercare. stabilizing PLAN: increased Trazodone to 150mg since patient is having trouble falling asleep; want to avoid triggering manic episode Also add one time dose of Ativan 1mg for bed on 03/13/21 only to help initiate sleep continue [place] ER at home dose of 600mg BID (home dose) ordered labs/level Respiratory consult placed for FABIOLA (pt lost CPAP) consider increasing Prazosin further (currently Prazosin 1mg for nightmares; lo w concern for being overly sedated since not on cpap; however pt has tolerated regimen in past w/out cpap. continue sertraline to 75mg for ptsd and anxiety continue ABX for UTI/vaginosis/Trichomonas SW to work on Dispo options Greater than 50% of the session was spent on counseling and/or coordination of care Reason for contiued inpatient stay Substantial Risk for: stable for discharge
[2021-03-15] MEDS: LORazepam 1 MG TABLET 2 MG PO (17:35)
[2021-03-15] MEDS: Benztropine Mesylate 1 MG TABLET PO (17:35)
[2021-03-15] MEDS: HaloperidoL 5 MG TABLET PO (17:35)
[2021-03-15 22:10] VITALS: BP 115/61; PULSE 73; TEMP 36.3
[2021-03-15] MEDS: Docusate Sodium 100 MG CAPSULE PO (22:24)
[2021-03-15 22:25] VITALS: BP 115/61; PULSE 73
[2021-03-15] MEDS: Prazosin HCL 1 MG CAPSULE PO (22:25)
[2021-03-15] MEDS: traZODone HCL 50 MG TABLET 150 MG PO (22:26)
[2021-03-16] MEDS: Omeprazole 20 MG CAPSULE.DR PO (06:51)
[2021-03-16 06:58] VITALS: BP 115/60; PULSE 74; TEMP 36.3; O2SAT 97
[2021-03-16] MEDS: Fluticasone/Vilanterol 200/25 BLST.W.DEV 1 PUFF INHALE (08:21)
[2021-03-16] MEDS: Ferrous Sulfate 324 MG TABLET.DR PO (08:24)
[2021-03-16] MEDS: Sertraline HCL 50 MG TABLET 75 MG PO (08:25)
[2021-03-16] MEDS: Nicotine 21 MG PATCH.TD24 TRANSDERMA (08:26)
[2021-03-16] MEDS: Cholecalciferol (Vitamin D3) 25 MCG TABLET PO (08:30)
[2021-03-16] MEDS: Lithium Carbonate ER 300 MG TABLET.ER 600 MG PO ×2 (08:32→22:34)
--- NOTE | 2021-03-16 10:14 | P.PNPSI_ITS ---
Subjective Subjective Date of Service: 03/16/21 Reason For Visit: depression SI Interim History: pt reports that she is overall good' and that depression and SI remain resolved. She said over the weekend she got aggitated but benefited greatly from Haldol and would like to take some at discharge as a prn. Pt says she feels ready for discharge tomorrow and will go to her sisters. Pt reports she is sleeping very well with CPAP and hopes she can get a new machine on discharge. No other complaints. Medication Compliance: Yes Side effects from medications: No Attending Groups: Yes Mental Status Exam Mental Status Exam Narrative: Pt is alert and oriented; behavior is cooperative, friendly and calm; patient is not in distress; dressed in casual attire with adequate hygiene; mood is described as good and affect congruent; eye contact appropriate; Speech is normal rate, volume and prosody and not pressured; no psychomotor agitation/retardation present; thought process is organized, linear, logical and goal directed. Thought content is on continuing treatment and discharge and remains pertinent to relevant topics and without any delusional content, paranoid ideations or grandiosity; denies any SI/HI. There is no evidence of perceptual disturbance. Patients insight and judgment appear intact. Diagnostics Vital Signs (24Hr): Vital Signs - 24 hr 03/15/21 22:10 03/15/21 22:25 03/16/21 06:58 Temperature 97.3 F 97.3 F Pulse Rate 73 73 74 Blood Pressure 115/61 115/61 115/60 Pulse Oximetry 97 Body Mass Index 40.2 Labs Results: 03/06/21 23:40 03/06/21 23:40 Imaging Radiology Impressions: ITS Impressions Abdomen/Pelvis CT 03/06/21 23:01 IMPRESSION: An etiology for the patient's epigastric and left lower quadrant pain has not been found. Incidental note made of: 1. Cholecystectomy 2. Left-sided nonobstructing punctate renal calculi 3. Tiny ventral hernia at the level of the bladder containing only fat 4. Stable 7 mm soft tissue mass anterior to: In the greater omentum 5. Marked degenerative changes L5-S1 6. Resolution of thickening of hepatic flexure Medications Medications Current Medications Generic Name Dose Route Start Last Admin Trade Name Freq PRN Reason Stop Dose Admin Acetaminophen 650 mg 03/10/21 14:58 Acetaminophen 325 Mg Tablet PO Q6H PRN Headache/Pain Mild Scale (1-3) Al Hydroxide/Mg Hydroxide 30 ml 03/10/21 14:58 Magnesium Hydrox/Alum Hydrox 30 Ml Oral.Susp PO Q6H PRN Heartburn/Nausea Albuterol Sulfate 2 puff 03/07/21 09:59 Albuterol Sulfate 90 Mcg 8 Gm Inhaler INHALE QID PRN wheezing Benztropine Mesylate 1 mg 03/10/21 14:58 03/15/21 17:35 Benztropine Mesylate 1 Mg Tablet PO 1 mg Q4H PRN Administration dystonia Docusate Sodium 100 mg 03/07/21 10:00 03/15/21 22:24 Docusate Sodium 100 Mg Capsule PO 100 mg BID TEJA Administration Ferrous Sulfate 324 mg 03/07/21 10:00 03/16/21 08:24 Ferrous Sulfate 324 Mg Tablet. PO 324 mg DAILY TEJA Administration Fluticasone/Vilanterol 1 puff 03/08/21 08:00 03/16/21 08:21 Fluticasone/Vilanterol 200/25 Blst.W.Dev INHALE 1 puff RDAILY TEJA Administration Haloperidol 5 mg 03/10/21 14:58 03/15/21 17:35 Haloperidol 5 Mg Tablet PO 5 mg Q4H PRN Administration agitation [place] Carbonate 600 mg 03/11/21 21:00 03/16/21 08:32 [place] Carbonate Er 300 Mg Tablet.Er PO 600 mg BID TEJA Administration Lorazepam 2 mg 03/10/21 14:58 03/15/21 17:35 Lorazepam 1 Mg Tablet PO 2 mg Q4H PRN Administration agitation Magnesium Hydroxide 30 ml 03/10/21 14:58 Milk Of Magnesia 30 Ml Oral.Susp PO DAILY PRN Constipation Nicotine 21 mg 03/07/21 10:00 03/16/21 08:26 Nicotine 21 Mg Patch.Td24 TRANSDERMA 21 mg DAILY TEJA Administration Nystatin 1 appl 03/07/21 15:40 Nystatin Ointment 15 Gm Tube TOPICAL Q6H PRN Vaginal itching Protocol Omeprazole 20 mg 03/07/21 10:00 03/16/21 06:51 Omeprazole 20 Mg Capsule. PO 20 mg DAILY@0630 [facility] Administration Pharmacy Consult 1 each 03/06/21 23:01 Consult Rx Perform Med Rec MISCELLANE ONCE PRN Consult order Polyethylene Glycol 17 gm 03/07/21 21:37 03/07/21 22:29 Polyethylene Glycol 3350 17 Gm Powd.Pack PO 17 gm DAILY PRN Administration Constipation Prazosin HCl 1 mg 03/12/21 21:00 03/15/21 22:25 Prazosin Hcl 1 Mg Capsule PO 1 mg BEDTIME TEJA Administration Protocol Sertraline HCl 75 mg 03/12/21 09:00 03/16/21 08:25 Sertraline Hcl 50 Mg Tablet PO 75 mg DAILY TEJA Administration Tiotropium [place] 1 puff 03/08/21 08:00 03/16/21 08:21 Tiotropium [place] 18 Mcg Cap.W.Dev INHALE 1 puff RDAILY TEJA Administration Trazodone HCl 50 mg 03/11/21 14:22 03/12/21 02:23 Trazodone Hcl 50 Mg Tablet PO 50 mg BEDTIME PRN Administration continued insomnia Trazodone HCl 150 mg 03/13/21 21:00 03/15/21 22:26 Trazodone Hcl 50 Mg Tablet PO 150 mg BEDTIME TEJA Administration Valacyclovir HCl 1,000 mg 03/07/21 10:00 03/16/21 08:24 Valacycyclovir Hcl 1,000 Mg Tablet PO 1,000 mg BID TEJA Administration Vitamin D 25 mcg 03/07/21 10:00 03/16/21 08:30 Cholecalciferol (Vitamin D3) 25 Mcg Tablet PO 25 mcg DAILY TEJA Administration Allergies Allergies Allergy/AdvReac Type Severity Reaction Status Date / Time aspirin [Aspirin] Allergy Severe HIVES,THROAT Verified 12/30/20 23:01 SWELLS bee pollen [BEE STINGS] Allergy Severe ANAPHYLAXIS Verified 12/30/20 23:01 diphenhydramine Allergy Severe hives, Verified 12/30/20 23:01 [From BENADRYL ALLERGY] throat swells Penicillins [PCN] Allergy Severe HIVES Verified 12/30/20 23:01 THROAT SWELLS Sulfa (Sulfonamide Allergy Intermediate HIVES Verified 12/30/20 23:01 Antibiotics) [SULFA (SULFONAMIDE ANTIBIOTICS)] tramadol [TRAMADOL] Allergy Intermediate ITCHING Verified 12/30/20 23:01 latex [LATEX] Allergy Unknown UNKNOWN Verified 12/30/20 23:01 penicillin G Allergy Unknown Unknown Verified 12/30/20 23:01 levofloxacin [From Levaquin] Allergy Hives Verified 12/30/20 23:01 bee stings Allergy Unknown Unknown Uncoded 12/12/20 20:36 DairyCare Allergy Unknown Unknown Uncoded 12/12/20 20:36 sulfa drugs Allergy Unknown Unknown Uncoded 12/12/20 20:36 Assessment & Plan Assessment & Plan (1) Bipolar disorder, current episode depressed, mild or moderate severity, u nspecified: Status: Chronic Code(s): F31.30 - Bipolar disorder, current episode depressed, mild or moderate severity, unspecified (2) Asthma exacerbation in COPD: Status: Acute Code(s): J44.1 - Chronic obstructive pulmonary disease with (acute) exacerbation; J45.901 - Unspecified asthma with (acute) exacerbation (3) Borderline personality disorder: Status: Acute Code(s): F60.3 - Borderline personality disorder (4) Hip pain: Status: Acute Code(s): M25.559 - Pain in unspecified hip (5) FABIOLA (obstructive sleep apnea): Status: Acute Code(s): G47.33 - Obstructive sleep apnea (adult) (pediatric) (6) PTSD (post-traumatic stress disorder): Status: Chronic Code(s): F43.10 - Post-traumatic stress disorder, unspecified Assessment and Plan: Patient is a 51 yo female with hx of bipolar disorder, PtSD, FABIOLA, substance abuse and personality disorder who presents with depression and SI in face of going off meds, relapsing on cocaine and psychosocial stressors. Pt signed a CV. She was restarted on her medications in ED and on admission, depression lessened and SI resolved. Pt current presentation is similar to her past admissions; she has long hx of emotional reactivity and intermittently goes off her medications which often coincides with relapsing on cocaine. She has no symptoms of eva and denies any recent manic episodes. Pt's lithium is being titrated to home dose and Sertraline increased. Currently she is stabilizing. Pt asks for help with aftercare. stabilizing well; SI and depression remain resolved CPAP provided and pt reports she's sleeping well PLAN: Labs for tomorrow; if remains stable, will plan to discharge Will lower Trazodone back to 100mg since CPAP on board. Also add one time dose of Ativan 1mg for bed on 03/13/21 only to help initiate sleep continue [place] ER at home dose of 600mg BID (home dose) ordered labs/level Respiratory provided CPAP currently Prazosin 1mg for nightmares; low concern for being overly sedated since not on cpap; however pt has tolerated regimen in past w/out cpap. continue sertraline to 75mg for ptsd and anxiety continue ABX for UTI/vaginosis/Trichomonas SW to work on Dispo options Greater than 50% of the session was spent on counseling and/or coordination of care Reason for contiued inpatient stay Substantial Risk for: stable for discharge (pending labs/lithium level drawn 03/17)
[2021-03-16] MEDS: LORazepam 1 MG TABLET 2 MG PO (12:36)
[2021-03-16] MEDS: HaloperidoL 5 MG TABLET PO (12:36)
[2021-03-16] MEDS: Benztropine Mesylate 1 MG TABLET PO (12:36)
[2021-03-16] MEDS: Magnesium Hydrox/Alum Hydrox 30 ML ORAL.SUSP PO (13:32)
[2021-03-16 22:32] VITALS: BP 121/77; PULSE 83
[2021-03-16] MEDS: Prazosin HCL 1 MG CAPSULE PO (22:32)
[2021-03-16] MEDS: traZODone HCL 50 MG TABLET 100 MG PO (22:33)
[2021-03-16 22:39] VITALS: BP 121/77; PULSE 83; RESP 18; TEMP 36.1; O2SAT 95
[2021-03-17 06:00] VITALS: PULSE 70; RESP 18; TEMP 36.3; O2SAT 94
[2021-03-17] MEDS: Omeprazole 20 MG CAPSULE.DR PO (06:15)
[2021-03-17 08:32] LABS: Lithium 0.83 mmol/L (0.60-1.20)
[2021-03-17] MEDS: Ferrous Sulfate 324 MG TABLET.DR PO (08:40)
[2021-03-17] MEDS: Nicotine 21 MG PATCH.TD24 TRANSDERMA (08:40)
[2021-03-17] MEDS: Sertraline HCL 50 MG TABLET 75 MG PO (08:41)
[2021-03-17] MEDS: Lithium Carbonate ER 300 MG TABLET.ER 600 MG PO (08:41)
[2021-03-17] MEDS: Cholecalciferol (Vitamin D3) 25 MCG TABLET PO (08:41)
[2021-03-17] MEDS: Fluticasone/Vilanterol 200/25 BLST.W.DEV 1 PUFF INHALE (08:43)
[2021-03-17 08:45] LABS: Anion Gap 12 (12-20); Blood Urea Nitrogen 20 mg/dL (9-16); Carbon Dioxide 26 mmol/L (22-29); Chloride 106 mmol/L (96-108); Creatinine Clr Calc Pharmacy 116.9; Estimated Glomerular Filt Rate > 60; Potassium 4.6 mmol/L (3.3-5.1); Sodium 139 mmol/L (135-145)
--- NOTE | 2021-03-17 11:24 | PM.PSYDC ---
DS: Providers Provider Date of Service: 03/18/21 Date of admission: 03/10/21 14:10 Date of discharge: 03/17/21 Primary care physician: Unknown Physician Attending physician on admission: Lamont Damon Attending physician on discharge: Lamont Damon DS: Diagnosis Discharge Diagnosis (1) Bipolar disorder, current episode depressed, mild or moderate severity, unspecified: Status: Chronic Problem details: resolved (2) Asthma exacerbation in COPD: Status: Chronic (3) Borderline personality disorder: Status: Chronic (4) Hip pain: Status: Chronic (5) FABIOLA (obstructive sleep apnea): Status: Chronic (6) PTSD (post-traumatic stress disorder): Status: Chronic DS: Medications Discharge Medications Home Medications: Previous Rx's Medication Instructions Recorded Spiriva Respimat 2 puff PO DAILY 30 Days #4 g 03/17/21 albuterol sulfate 2 puff INHALATION QID PRN 30 Days 03/17/21 #1 g cholecalciferol (vitamin D3) 25 mcg PO DAILY 30 Days #30 tab 03/17/21 docusate sodium 100 mg PO BID 30 Days #60 cap 03/17/21 ferrous sulfate 324 mg PO DAILY 30 Days #30 tab 03/17/21 fluticasone propion-salmeterol 1 inh INHALATION BID 30 Days #1 ea 03/17/21 lithium carbonate 600 mg PO BID 30 Days #120 tab 03/17/21 nicotine 1 patch TOPICAL DAILY 30 Days #28 03/17/21 ea omeprazole 20 mg PO DAILY@0630 30 Days #30 cap 03/17/21 prazosin 1 mg PO BEDTIME 30 Days #30 cap 03/17/21 sertraline 75 mg PO DAILY 30 Days #45 tab 03/17/21 trazodone 100 mg PO BEDTIME PRN 30 Days #30 03/17/21 tab valacyclovir [Valtrex] 1,000 mg PO BID 30 Days #60 tab 03/17/21 Discharge Plan Discharge Patient Disposition: Xfer Other Discharge Diagnosis: Bipolar disorder, severe, recurrent, most recent episode depressed full remission Ref[facility]: [facility] [place] [Other] - 03/19/21 10:00 am (This appointment is in-person at the office) Psychiatry: Dr. Recinos ([facility] [Other] - 05/05/21 11:20 am (This appointment is via Telehealth) PHP Intake [Other] - 03/18/21 7:30 am (The intake appointment is scheduled for Tuesday03/18/21 @ 7:30AM. You will receive an email with the login information to your [employer] account. If you have any difficulties, please call the above number and ask for Sarah) Physician,Unknown [Primary Care Provider] - 1 Week Discharge Medications: New prazosin 1 mg Capsule 1 mg PO BEDTIME 30 Days Qty: 30 RF: 0 lithium carbonate 300 mg Tablet Extended Release 600 mg PO BID 30 Days Qty: 120 RF: 0 sertraline 50 mg Tablet 75 mg PO DAILY 30 Days Qty: 45 RF: 0 Continued valacyclovir [Valtrex] 1 gram Tablet 1,000 mg PO BID 30 Days Qty: 60 RF: 0 nicotine 21 mg/24 hr patch 24 hour 1 patch topical DAILY 30 Days Qty: 28 RF: 1 docusate sodium 100 mg Capsule 100 mg PO BID 30 Days Qty: 60 RF: 0 omeprazole 20 mg Capsule,Delayed Release(Dr/Ec) 20 mg PO DAILY@0630 30 Days Qty: 30 RF: 0 albuterol sulfate 90 mcg/actuation HFA aerosol inhaler 2 puff inhalation QID PRN (Reason: wheezing) 30 Days Qty: 1 RF: 1 cholecalciferol (vitamin D3) 25 mcg (1,000 unit) Tablet 25 mcg PO DAILY 30 Days Qty: 30 RF: 0 ferrous sulfate 324 mg (65 mg iron) Tablet,Delayed Release (Dr/Ec) 324 mg PO DAILY 30 Days Qty: 30 RF: 0 Spiriva Respimat 1.25 mcg/actuation mist 2 puff PO DAILY 30 Days Qty: 4 RF: 0 Changed trazodone 100 mg tablet 100 mg PO BEDTIME PRN (Reason: insomnia) 30 Days Qty: 30 RF: 0 fluticasone propion-salmeterol 232-14 mcg/actuation aerosol powdr breath activated 1 inh inhalation BID 30 Days Qty: 1 RF: 0 Discontinued sertraline 50 mg tablet 1 tab PO DAILY RF: 0 trazodone 50 mg Tablet 50 mg PO BEDTIME PRN (Reason: Sleep) RF: 0 lithium carbonate 300 mg tablet extended release 600 mg PO BEDTIME RF: 0 Discharge Orders: Discharge Order (Routine); Ordered 03/17/21 Ordered By: Lamont Damon Activity on Discharge: As tolerated Stand Alone Forms: Patient Portal Discharge page, Community Support Care Plan Goals: Maintain mood and safe behaviors Take medications as prescribed Continue using coping skills Continue to pursue sobriety Continue with outpatient providers and reach out to them as needed Health Concerns: Obstructive Sleep Apnea Mood instability and behaviors Depression Plan of Treatment: Follow up with your PCP regarding Sleep Apnea and getting a Sleep Study Take medications as prescribed Assessment: Risk assessment at time of discharge: Patient has been observed closely by nursing and unit staff throughout admission; patient has not engaged in any behaviors that suggest dangerousness to self; she got into a verbal altercation with a peer but patient was redirectable and able to stay safe; otherwise, patient has demonstrated appropriate behaviors and impulse control. Patient was interviewed prior to discharge and found to be fully oriented and without any SI or HI. Patient has insight and demonstrates good judgment in terms of wanting to pursue treatment and wanting to stay sober. Patient is not in imminent risk of harm to self or others and has a safety plan that includes presenting to the closest ER or calling 911 if feeling unsafe. Discharge Date/Time: 03/17/21 13:00 Mental Status Exam Mental Status Exam Narrative: Pt is alert and oriented; behavior is cooperative, friendly and calm; patient is not in distress; dressed in casual attire with adequate hygiene; mood is described as good and affect congruent; eye contact appropriate; Speech is normal rate, volume and prosody and not pressured; no psychomotor agitation/retardation present; thought process is organized, linear, logical and goal directed. Thought content is on continuing treatment and discharge and remains pertinent to relevant topics and without any delusional content, paranoid ideations or grandiosity; denies any SI/HI. There is no evidence of perceptual disturbance. Patients insight and judgment appear intact. Data Data Completed and Pending Completed studies during hospitalization [Text1]: 03/17/21 03/17/21 07:53 07:53 Sodium 139 Potassium 4.6 Chloride 106 Carbon Dioxide 26 Anion Gap 12 BUN 20 H Creatinine 0.71 Estim Creat Clear Calc 116.9 Estimated GFR > 60 [place] 0.83 03/06/21 00:00 Urine clean catch - Clean Catch Midstream Urine Culture - Final 03/07/21 15:37 Vaginal Trichomonas Preparation - Final Imaging Diagnostic Imaging Impressions Abdomen/Pelvis CT 03/06/21 23:01 IMPRESSION: An etiology for the patient's epigastric and left lower quadrant pain has not been found. Incidental note made of: 1. Cholecystectomy 2. Left-sided nonobstructing punctate renal calculi 3. Tiny ventral hernia at the level of the bladder containing only fat 4. Stable 7 mm soft tissue mass anterior to: In the greater omentum 5. Marked degenerative changes L5-S1 6. Resolution of thickening of hepatic flexure DS: Summary Hospital Course Hospital Course: Patient is a 51 yo female with hx of bipolar disorder, PtSD, FABIOLA, substance abuse and personality disorder who presents with depression and SI in face of going off meds, relapsing on cocaine and psychosocial stressors. Pt signed a CV and was restarted on her medications in ED and on admission depression and SI resolved. [place] was titrated to good effect and well tolerated; labs/trough level WNL. Her Sertraline was increased to 75mg and also well tolerated. Patient continued to deny any suicidal or homicidal ideation during admission; she attended groups and other than one verbal altercation with a peer, demonstrated appropriate behaviors and impulse control on the unit. Patient was able to borrow hospital CPAP machine which was very helpful for her sleep. [facility] [place] was contacted and reported that patient needs another sleep study before they will give her a new CPAP machine and appointment is pending. Patient requested discharge with plan to stay at her sisters. While she has long hx of emotional reactivity and remains vulnerable to relapse and at some point again becoming dysregulated, these issues are chronic, of which patient is well aware and will continue to work on as an outpatient. She is currently in a good mood, with bright affect, future oriented and optimistic about continuing treatment. She is not in imminent risk of harm to self or others, has community support and is appropriate for discharge. writer editor was later informed by nursing that patient decided she did not want a new sleep study ([facility] [place] requires this) and will just borrow her friends CPAP. . Time spent discussing smoking cessation with patient: 3 to 10 minutes Status at Discharge Functional status at discharge: independent ambulation Overall status at discharge: patient is back to baseline Time Spent with Patient Time attestation: Total time spent providing and/or coordinating discharge services: Time spent: Greater than 30 minutes
== END 2021-03-17 13:00 | disposition other institution (70) | DRG 753 ==
LOC: HO.ED 03-07 08:49 → HO.PM5 03-10 14:41
PROVIDERS: Physician Assistant; Physician Assistant Medical; Admitting Provider Psychiatry & Neurology Psychiatry; Emergency Provider Student in an Organized Health Care Education/Training Program; Visit Provider Psychiatry & Neurology Psychiatry
DX: F31.30 Bipolar disorder, current episode depressed, mild or moderate severity, unspecified (principal); R45.851 Suicidal ideations; J44.1 Chronic obstructive pulmonary disease with (acute) exacerbation; N39.0 Urinary tract infection, site not specified; J45.901 Unspecified asthma with (acute) exacerbation; G47.33 Obstructive sleep apnea (adult) (pediatric); F60.3 Borderline personality disorder; F43.10 Post-traumatic stress disorder, unspecified; F17.210 Nicotine dependence, cigarettes, uncomplicated; Z71.6 Tobacco abuse counseling; Z20.822 Contact with and (suspected) exposure to COVID-19; Z88.0 Allergy status to penicillin; Z88.2 Allergy status to sulfonamides; Z79.51 Long term (current) use of inhaled steroids; Z79.899 Other long term (current) drug therapy
CPT/HCPCS: 36415; 74176; 80048; 80051; 80076; 80178; 80307; 81001; 82565; 83690; 83735; 84520; 85025; 87086; 87480; 87491; 87510; 87591; 87635; 87660; 93005; 94660; 99285

== ENCOUNTER 2021-04-08 08:58 | Inpatient (IN) | payer MEDICAID, SELFPAY ==
[2021-04-08] VITALS (14 sets, daily range): BP systolic 100–140; BP diastolic 58–89; PULSE 73–102; RESP 15–26; TEMP 36.3–37.1; O2SAT 92–99; BMI 38.7
--- NOTE | ~2021-04-08 | XR_ITS ---
EXAMINATION: XR CHEST CLINICAL INFORMATION: Dyspnea COMPARISON: Chest radiographs 02/09/2021, 01/12/2021 TECHNIQUE: Portable upright AP view of the chest was obtained. FINDINGS: There is questionable groundglass opacity right lateral base. Otherwise, the lungs are grossly clear with no lobar or segmental consolidation or effusion. The costophrenic sulci are clear. The heart is normal in size. The hilar and mediastinal contours are normal. There is no pneumothorax or pneumomediastinum. No acute bony abnormality. XR/XR chest 1V IMPRESSION: Questionable groundglass opacity right lateral base. Lungs otherwise grossly clear. No airspace consolidation or effusion.
--- NOTE | 2021-04-08 09:05 | ECG_ITS ---
Test Reason : SOB Blood Pressure : / mmHG Vent. Rate : 085 BPM Atrial Rate : 085 BPM P-R Int : 138 ms QRS Dur : 084 ms QT Int : 378 ms P-R-T Axes : 014 018 009 degrees QTc Int : 449 ms Normal sinus rhythm Normal ECG When compared with ECG of 10-MAR-2021 10:01, No significant change was found Referred By: Nicole Cisse Electronically Signed By:VAIBHAV KILLIAN MD
--- NOTE | 2021-04-08 09:15 | ED.ASTHMA ---
HPI - Asthma General Chief Complaint: Dyspnea Stated Complaint: sob Time Seen by Provider: 04/08/21 09:04 Source: patient, EMS and old records reviewed Mode of arrival: EMS Limitations: no limitations History of Present Illness HPI Narrative: 51 yo female well known with asthma, COPD, mental illness here with onset of wheezing and shortness of breath since last night, denies smoking or using drugs, no fevers, given neb by EMS en route MD complaint: asthma attack , shortness of breath and wheezing Onset (ago): day(s) (last night) Severity: moderate and similar to prior Context: none known Associated symptoms: dry cough Asthma History: childhood onset Treatments Prior to Arrival: inhaled bronchodilator Related Data Previous Rx's Medication Instructions Recorded Spiriva Respimat 2 puff PO DAILY 30 Days #4 g 03/17/21 albuterol sulfate 2 puff INHALATION QID PRN 30 Days 03/17/21 #1 g cholecalciferol (vitamin D3) 25 mcg PO DAILY 30 Days #30 tab 03/17/21 docusate sodium 100 mg PO BID 30 Days #60 cap 03/17/21 ferrous sulfate 324 mg PO DAILY 30 Days #30 tab 03/17/21 fluticasone propion-salmeterol 1 inh INHALATION BID 30 Days #1 ea 03/17/21 lithium carbonate 600 mg PO BID 30 Days #120 tab 03/17/21 nicotine 1 patch TOPICAL DAILY 30 Days #28 03/17/21 ea omeprazole 20 mg PO DAILY@0630 30 Days #30 cap 03/17/21 prazosin 1 mg PO BEDTIME 30 Days #30 cap 03/17/21 sertraline 75 mg PO DAILY 30 Days #45 tab 03/17/21 trazodone 100 mg PO BEDTIME PRN 30 Days #30 03/17/21 tab valacyclovir [Valtrex] 1,000 mg PO BID 30 Days #60 tab 03/17/21 Allergies Allergy/AdvReac Type Severity Reaction Status Date / Time aspirin [Aspirin] Allergy Severe HIVES,THROAT Verified 12/30/20 23:01 SWELLS bee pollen [BEE STINGS] Allergy Severe ANAPHYLAXIS Verified 12/30/20 23:01 diphenhydramine Allergy Severe hives, Verified 12/30/20 23:01 [From BENADRYL ALLERGY] throat swells Penicillins [PCN] Allergy Severe HIVES Verified 12/30/20 23:01 THROAT SWELLS Sulfa (Sulfonamide Allergy Intermediate HIVES Verified 12/30/20 23:01 Antibiotics) [SULFA (SULFONAMIDE ANTIBIOTICS)] tramadol [TRAMADOL] Allergy Intermediate ITCHING Verified 12/30/20 23:01 latex [LATEX] Allergy Unknown UNKNOWN Verified 12/30/20 23:01 penicillin G Allergy Unknown Unknown Verified 12/30/20 23:01 levofloxacin [From Levaquin] Allergy Hives Verified 12/30/20 23:01 bee stings Allergy Unknown Unknown Uncoded 12/12/20 20:36 DairyCare Allergy Unknown Unknown Uncoded 12/12/20 20:36 sulfa drugs Allergy Unknown Unknown Uncoded 12/12/20 20:36 Review of Systems Review of Systems: Constitutional : No Fever, No Chills ENT/Mouth : No Hoarseness, No sore throat, No Rhinorrhea Eyes: No Redness, No Discharge, No Vision Changes Cardiovascular : No Chest Pain, positive SOB, positive Dyspnea on Exertion, No Edema Respiratory : positive Cough, No Sputum, positive Wheezing, Gastrointestinal : No Nausea, No Vomiting, No Diarrhea, No abdominal Pain Genitourinary : No Dysuria, No Hematuria Musculoskeletal : No joint pain, No Myalgias Skin : No rash Neuro : No Weakness, No Numbness, No Headache Psych : No anxiety, depression Heme/Lymph: No Bruising, No Bleeding Endocrine : No Polyuria, No Polydipsia All other systems reviewed and are negative PMFSH Past Medical History Attestation statement: The following information was validated with the patient. Medical History Asthma exacerbation in COPD Bipolar disorder Borderline personality disorder COPD (chronic obstructive pulmonary disease) Depression Herpes Intermittent explosive disorder FABIOLA (obstructive sleep apnea) PTSD (post-traumatic stress disorder) Tobacco use Surgical History History of ankle surgery History of appendectomy History of back surgery Hx of cholecystectomy Family History Family History Mother COPD (chronic obstructive pulmonary disease) Social History Social History Household Members: None Household Members Other:: Pt states she hangs out with a male friend and a female friend Housing: Homeless Do you presently have visiting nurse or other home services: No Alcohol intake: never Patient Tobacco Use Status: Current everyday Tobacco user Cigarette Packs Per Day: 1.5 Cigarettes Per Day: 30.0 Years Smoked: 17 Second Hand Smoke Exposure: Yes Use of substances other than those prescribed or required for medical reasons: No Substance Use Type: Crack/Cocaine Advance Directives: Yes Advance Directives Information Provided: Yes Advance Directives on File: No Patient : No service: No Current occupational status: unemployed Sexual orientation: Straight/Heterosexual Physical Exam Vital Signs: Vital Signs: Last Vital Signs Temp 98.7 F 04/08/21 09:03 Pulse 73 04/08/21 11:00 Resp 20 04/08/21 11:00 BP 121/68 04/08/21 11:00 Pulse Ox 98 04/08/21 11:00 Body Mass Index 38.7 Appearance: Alert. Oriented X3. Anxious mild acute distress Eyes: Pupils equal, round and reactive to light. ENT: Pharynx normal. Neck: Normal inspection. Neck supple. CVS: tachycardic heart rate and rhythm. Pulses normal. Respiratory: Mild respiratory distress tachypnea retractions short phrases only. diffuse end exp wheezes Abdomen: Soft and non-tender. Skin: Skin warm and dry. Normal skin color. Normal skin turgor. Extremities: No lower extremity edema. No calf ttp Neuro: Oriented X 3. No motor deficit. No sensory deficit. Course Course Course Narrative: still tight and wheezing, will admit for asthma MDM - Asthma MDM Narrative Medical decision making narrative: 51 yo female well known with asthma, COPD, mental illness here with onset of wheezing and shortness of breath since last night, denies smoking or using drugs, no fevers, given neb by EMS en route at this time likely asthma attack will need labs, CXR, 5mg neb, IV steroids, IV magnesium, dispo per results and improvement Lab Data Result diagrams: 04/08/21 09:57 04/08/21 09:57 Labs: Lab Results 04/08/21 04/08/21 04/08/21 Range/Units 09:57 09:57 09:57 WBC 5.8 (4.8-10.8) X10*3/uL RBC 4.39 (4.20-5.50) X10*6/uL Hgb 13.0 (12.0-16.0) g/dl Hct 40.6 (37-47) % MCV 92.5 (80-98) fL MCH 29.6 (27.0-33.0) pg MCHC 32.0 (31.0-35.0) g/dl RDW 13.2 (11.0-16.0) % Plt Count 186 D (160-400) X10*3/uL MPV 10.8 (9.4-12.3) fL Immature Gran % (Auto) 0.2 (0.0-0.4) % Neut % (Auto) 42.9 L (45-73) % Lymph % (Auto) 47.6 H (20-40) % [place] % (Auto) 6.9 (2-11) % Eos % (Auto) 1.4 (0-4) % Baso % (Auto) 1.0 (0-2) % Lymph # (Auto) 2.8 (1.2-4.9) X10*3/uL [place] # (Auto) 0.4 (0.1-1.2) X10*3/uL Eos # (Auto) 0.1 (0.0-0.4) X10*3/uL Baso # (Auto) 0.1 (0.0-0.2) X10*3/uL Abs Immat Gran (auto) 0.01 (0.00-0.03) X10*3/uL Absolute Neuts (auto) 2.5 (2.0-8.3) X10*3/uL Absolute Nucleated RBC 0.000 (0.0-0.012) X10*3/uL Nucleated RBC % (auto) 0.0 (0.0-0.2) /100WBC Smear Tech's Comments VERIFIED Sodium 142 (135-145) mmol/L Potassium 3.7 (3.3-5.1) mmol/L Chloride 109 H (96-108) mmol/L Carbon Dioxide 23 (22-29) mmol/L Anion Gap 14 (12-20) BUN 15 (9-16) mg/dL Creatinine 0.71 (0.5-1.4) mg/dL Estim Creat Clear Calc 98.5 Estimated GFR > 60 Random Glucose 99 (60-115) mg/dL Calcium 9.4 (8.4-10.2) mg/dL Magnesium 2.1 (1.6-2.6) mg/dL Total Bilirubin 0.2 (0.0-1.0) mg/dL Direct Bilirubin < 0.2 (0.0-0.5) mg/dL AST 21 (5-31) U/L ALT 20 (0-31) U/L Alkaline Phosphatase 80 (39-117) U/L Total Protein 6.9 (6.5-8.0) g/dL Albumin 4.4 (3.5-5.0) g/dL Urine Opiates Screen (Not Detect) Ur Barbiturates Screen (Not Detect) Ur Phencyclidine Scrn (Not Detect) Ur Amphetamines Screen (Not Detect) U Benzodiazepines Scrn (Not Detect) Urine Cocaine Screen (Not Detect) U Marijuana (THC) Screen (Not Detect) COVID-19 (ENDY) (Negative) COVID-19 Clin Com 04/08/21 04/08/21 Range/Units 09:57 09:57 WBC (4.8-10.8) X10*3/uL RBC (4.20-5.50) X10*6/uL Hgb (12.0-16.0) g/dl Hct (37-47) % MCV (80-98) fL MCH (27.0-33.0) pg MCHC (31.0-35.0) g/dl RDW (11.0-16.0) % Plt Count (160-400) X10*3/uL MPV (9.4-12.3) fL Immature Gran % (Auto) (0.0-0.4) % Neut % (Auto) (45-73) % Lymph % (Auto) (20-40) % [place] % (Auto) (2-11) % Eos % (Auto) (0-4) % Baso % (Auto) (0-2) % Lymph # (Auto) (1.2-4.9) X10*3/uL [place] # (Auto) (0.1-1.2) X10*3/uL Eos # (Auto) (0.0-0.4) X10*3/uL Baso # (Auto) (0.0-0.2) X10*3/uL Abs Immat Gran (auto) (0.00-0.03) X10*3/uL Absolute Neuts (auto) (2.0-8.3) X10*3/uL Absolute Nucleated RBC (0.0-0.012) X10*3/uL Nucleated RBC % (auto) (0.0-0.2) /100WBC Smear Tech's Comments Sodium (135-145) mmol/L Potassium (3.3-5.1) mmol/L Chloride (96-108) mmol/L Carbon Dioxide (22-29) mmol/L Anion Gap (12-20) BUN (9-16) mg/dL Creatinine (0.5-1.4) mg/dL Estim Creat Clear Calc Estimated GFR Random Glucose (60-115) mg/dL Calcium (8.4-10.2) mg/dL Magnesium (1.6-2.6) mg/dL Total Bilirubin (0.0-1.0) mg/dL Direct Bilirubin (0.0-0.5) mg/dL AST (5-31) U/L ALT (0-31) U/L Alkaline Phosphatase (39-117) U/L Total Protein (6.5-8.0) g/dL Albumin (3.5-5.0) g/dL Urine Opiates Screen Not Detected (Not Detect) Ur Barbiturates Screen Not Detected (Not Detect) Ur Phencyclidine Scrn Not Detected (Not Detect) Ur Amphetamines Screen Not Detected (Not Detect) U Benzodiazepines Scrn Not Detected (Not Detect) Urine Cocaine Screen Not Detected (Not Detect) U Marijuana (THC) Screen Not Detected (Not Detect) COVID-19 (ENDY) Negative (Negative) COVID-19 Clin Com See Note ECG Data Attestation: I personally reviewed and interpreted this ECG as follows: ECG interpretation date: 04/08/21 ECG interpretation time: 09:35 Interpretation: Rate: 85 Rhythm: NSR Browder: normal Normal P waves. Normal GABBIE. Normal QRS complex. ST T wave : nonspecific, no KYRIE, inverted V3 qTC: normal prior studies: no acute ischemia The study has been interpreted contemporaneously by me. . Critical Care Time Critical Care Time Critical Care Time: Yes Total Critical Care Time: 35 Attestation: repeat nebs, admission, IV steroids, IV magnesium, reassessments. I attest to this time spent taking care of the patient Discharge Plan Discharge Clinical Impression: Asthma with exacerbation Qualifiers: Asthma severity: severe Asthma persistence: persistent Qualified Code(s): J45.51 - Severe persistent asthma with (acute) exacerbation Patient Disposition: Admitted As Inpatient
[2021-04-08] MEDS: Albuterol Sulfate (0.083%) 2.5 MG/3 ML VIAL.NEB 5 MG INHALE (09:17)
[2021-04-08 10:15] LABS: Imm Gran Abs Auto 0.01 X10*3/uL (0.00-0.03); Imm Gran Pct Auto 0.2 % (0.0-0.4); MANUAL DIFF FLAG SCAN; PLT CLUMP 1; Red Cell Distribution Width 13.2 % (11.0-16.0); SCAN SMEAR FLAG 1
[2021-04-08 10:16] LABS: Basophils Absolute Auto 0.1 X10*3/uL (0.0-0.2); Eosinophils Absolute Auto 0.1 X10*3/uL (0.0-0.4); Eosinophils Percent Auto 1.4 % (0-4); Hematocrit 40.6 % (37-47); Lymphocytes Absolute Auto 2.8 X10*3/uL (1.2-4.9); Lymphocytes Percent Auto 47.6 % (20-40); Mean Corpuscular Hemoglobin 29.6 pg (27.0-33.0); Mean Corpuscular Volume 92.5 fL (80-98); Mean Platelet Volume 10.8 fL (9.4-12.3); Monocytes Absolute Auto 0.4 X10*3/uL (0.1-1.2); Monocytes Percent Auto 6.9 % (2-11); Neutrophils Absolute Auto 2.5 X10*3/uL (2.0-8.3); Neutrophils Percent Auto 42.9 % (45-73); Red Blood Count 4.39 X10*6/uL (4.20-5.50); White Blood Count 5.8 X10*3/uL (4.8-10.8)
[2021-04-08 10:24] LABS: COVID-19 Test Negative (Negative)
[2021-04-08 10:32] LABS: Anion Gap 14 (12-20); Blood Urea Nitrogen 15 mg/dL (9-16); Calcium 9.4 mg/dL (8.4-10.2); Carbon Dioxide 23 mmol/L (22-29); Chloride 109 mmol/L (96-108); Creatinine Clr Calc Pharmacy 98.5; Estimated Glomerular Filt Rate > 60; Glucose Random 99 mg/dL (60-115); Potassium 3.7 mmol/L (3.3-5.1); Sodium 142 mmol/L (135-145)
[2021-04-08 10:36] LABS: Alanine Aminotransferase 20 U/L (0-31); Albumin Level 4.4 g/dL (3.5-5.0); Alkaline Phosphatase 80 U/L (39-117); Aspartate Amino Transferase 21 U/L (5-31); Bilirubin Direct < 0.2 mg/dL (0.0-0.5); Bilirubin Total 0.2 mg/dL (0.0-1.0); Magnesium 2.1 mg/dL (1.6-2.6); Total Protein 6.9 g/dL (6.5-8.0)
[2021-04-08 10:37] LABS: Amphetamine Screen Urine Not Detected (Not Detect); Barbiturates, Urine Not Detected (Not Detect); Benzodiazepines Screen Urine Not Detected (Not Detect); Cannabinoid Screen Urine Not Detected (Not Detect); Cocaine Screen Urine Not Detected (Not Detect); Opiate Screen Urine Not Detected (Not Detect); Phencyclidine Screen Urine Not Detected (Not Detect)
[2021-04-08 10:43] LABS: Platelet Count 186 X10*3/uL (160-400)
[2021-04-08 10:57] LABS: SLIDE REVIEW VERIFIED
[2021-04-08] MEDS: Albuterol Sulfate (0.083%) 2.5 MG/3 ML VIAL.NEB INHALE (11:33)
[2021-04-08] MEDS: methylPREDNISolone Sod Succ 125 MG/2 ML VIAL IVPUSH (11:41)
[2021-04-08] MEDS: Magnesium Sulfate/H2O 2 GM/50 ML PIGGYBACK IV (11:43)
--- NOTE | 2021-04-08 13:11 | PC.NURSE ---
Patient resting quietly in bed in no distress. Respirations are even and nonlabored. Pt sats are 92% on room air. Pt is able to talk in complete sentences which is much better than when she arrived. Pt denies any pain. Pt given a sandwich and gingerale
--- NOTE | 2021-04-08 14:49 | PC.NURSE ---
Report called to MELONY oFntenot.
--- NOTE | 2021-04-08 15:01 | PHA.MEDREC ---
Pharmacy Consult ? Medication Reconciliation Pharmacy has completed the medication reconciliation.
--- NOTE | 2021-04-08 15:59 | HP_ITS ---
DATE OF SERVICE: 04/08/2021 CHIEF COMPLAINT: Shortness of breath. HISTORY OF PRESENTING ILLNESS: This is a 51-year-old female patient with past medical history significant for overlap syndrome, COPD/asthma, currently smoking 3 cigarettes a day, presented to [facility] with acute onset of shortness of breath and wheeze since last night. The patient denies associated fever, chills, cough. Denies allergy symptoms. According to her, she just walked out of her house today, it was extremely hot. She became sweaty and short of breath; therefore came to the emergency room, where she was noted to have bilateral expiratory wheeze. Chest x-ray showed questionable ground-glass opacity right lateral base. In the emergency room, the patient noted to have bilateral expiratory wheeze. She was treated with IV Solu-Medrol 125 mg updraft treatment and 1 dose of magnesium. The patient's shortness of breath improved, but due to persistent bilateral wheeze and shortness of breath, patient is being admitted for continued monitoring and treatment. The patient's oxygenation currently is stable 92 at room air. REVIEW OF SYSTEMS: GENERAL: She denies any fever or chills. CARDIOVASCULAR: She denies chest pain or palpitation. RESPIRATORY: She complains of shortness of breath, bilateral expiratory wheeze. Denies cough or sputum production. GASTROINTESTINAL: She denies any nausea, vomiting, abdominal pain, or diarrhea. : She denies any urinary frequency or urgency. SKIN: She denies any rashes or itching. PAST MEDICAL HISTORY: Significant for, 1. Bipolar disorder. 2. History of COPD. 3. History of depression. 4. History of borderline personality disorder. FAMILY HISTORY: Significant for COPD in her mom. PAST SURGICAL HISTORY: She is status post appendectomy, status post back surgery, status post ankle surgery, status post cholecystectomy. SOCIAL HISTORY: The patient lives alone. Currently, she is smoking 3 cigarettes a day. She denies alcohol or illicit drug use. ALLERGIES: PATIENT IS ALLERGIC TO ASPIRIN THAT CAUSES HIVES. BEE STINGS CAUSES ANAPHYLAXIS, DIPHENHYDRAMINE CAUSES HIVES AND THROAT SWELLING. PENICILLIN CAUSES HIVES AND THROAT SWELLING. SULFA . TRAMADOL CAUSES ITCHING. LEVAQUIN CAUSES HIVES, RASH. SHE IS ALSO ALLERGIC TO LATEX AND PENICILLIN, UNKNOWN ALLERGIC REACTION. MEDICATIONS: At home are albuterol 2 puffs inhaler q.i.d., vitamin D3 25 mcg daily, Colace 100 mg b.i.d., ferrous sulfate 324 daily, fluticasone/salmeterol 1 inhaler b.i.d., lithium 600 b.i.d., omeprazole 20 mg daily, prazosin 1 mg at bedtime, Zoloft 75 mg daily, Spiriva 2 puffs daily, trazodone 100 mg at bedtime as needed, and Valtrex 1000 mg twice daily. LABORATORY DATA: Showed hematocrit 40.6, hemoglobin 13, platelets 186. Sodium 142, potassium 3.7, chloride 109, BUN 15, creatinine 0.7, blood sugar 99. ASSESSMENT AND PLAN: This is a 51-year-old female patient currently smoking 3 cigarettes a day with history of overlap syndrome, presented to [facility] with acute onset of shortness of breath associated with feeling hot and sweaty. Workup in the ER is consistent with chronic obstructive pulmonary disease exacerbation. 1. Chronic obstructive pulmonary disease exacerbation. The patient continued to be tachypneic, although able to talk in full sentences. We will admit her to med/surg floor, placed her on IV steroids scheduled and as needed updraft treatment. We will place her on azithromycin for right lateral basilar ground-glass opacity. Continue supportive care with oxygen and cough medication as needed. 2. Tobacco use disorder. The patient is gradually weaning and currently smoking 3 cigarettes a day. Support provided. 3. History of bipolar disorder. Continue home medications. 4. Morbid obesity. Weight loss has been encouraged. 5. Code status, the patient is a full code. 6. Deep vein thrombosis prophylaxis. The patient will be placed on Lovenox. MD TINY Hernandez/MARILYN / [id number] MTDD
[2021-04-08] MEDS: 0.9 % Sodium Chloride Flush 3 ML SYRINGE IVFLUSH (16:56)
[2021-04-08] MEDS: Enoxaparin Sodium 40 MG/0.4 ML SYRINGE SUBCUT (17:44)
[2021-04-08] MEDS: methylPREDNISolone Sod Succ 40 MG/ML VIAL IVPUSH (17:45)
[2021-04-08] MEDS: Albuterol/Iprat 2.5/0.5MG 3 ML AMPUL.NEB INHALE (19:54)
[2021-04-08] MEDS: Nicotine 7 MG PATCH.TD24 TRANSDERMA (19:58)
[2021-04-08] MEDS: Acetaminophen 325 MG TABLET 650 MG PO (19:59)
[2021-04-08] MEDS: guaiFENesin DM 200/20/10 ML 10 ML SYRUP PO (19:59)
[2021-04-08] MEDS: Azithromycin 500 MG TABLET PO (20:01)
[2021-04-08] MEDS: Docusate Sodium 100 MG CAPSULE PO (20:03)
[2021-04-08] MEDS: Prazosin HCL 1 MG CAPSULE PO (20:04)
[2021-04-08] MEDS: Lithium Carbonate ER 300 MG TABLET.ER 600 MG PO (20:04)
[2021-04-09] VITALS (10 sets, daily range): BP systolic 113–133; BP diastolic 60–71; PULSE 70–90; RESP 16–20; TEMP 35.9–36.7; O2SAT 93–97
[2021-04-09] MEDS: methylPREDNISolone Sod Succ 40 MG/ML VIAL IVPUSH ×3 (00:31→15:42)
[2021-04-09] MEDS: 0.9 % Sodium Chloride Flush 3 ML SYRINGE IVFLUSH ×3 (00:31→15:43)
[2021-04-09] MEDS: Acetaminophen 325 MG TABLET 650 MG PO ×2 (01:53→15:41)
[2021-04-09] MEDS: Omeprazole 20 MG CAPSULE.DR PO (06:14)
[2021-04-09] MEDS: Albuterol/Iprat 2.5/0.5MG 3 ML AMPUL.NEB INHALE ×4 (08:01→20:03)
[2021-04-09] MEDS: Sertraline HCL 50 MG TABLET 75 MG PO (08:10)
[2021-04-09] MEDS: guaiFENesin DM 200/20/10 ML 10 ML SYRUP PO ×4 (08:11→20:54)
[2021-04-09] MEDS: Cholecalciferol (Vitamin D3) 25 MCG TABLET PO (08:11)
[2021-04-09] MEDS: Docusate Sodium 100 MG CAPSULE PO ×2 (08:11→20:54)
[2021-04-09] MEDS: Nicotine 7 MG PATCH.TD24 TRANSDERMA (08:13)
[2021-04-09] MEDS: Lithium Carbonate ER 300 MG TABLET.ER 600 MG PO ×2 (08:50→20:57)
--- NOTE | 2021-04-09 14:52 | P.PNIM_ITS ---
Subjective Subjective Date of Service: 04/09/21 Interval History: Patient feeling better but still short of breath, complaining of chest pain with coughing, shortness of breath worsens with activity no fever chills no other acute issues overnight. ROS General no headache, no dizziness, no fever chills. CVS chest pain with coughing, no palpitation. Respiratory cough, shortness of breath. Gastrointestinal no nausea, no vomiting, no abdominal pain Skin no rash Physical Exam Vital Signs: Vital Signs: Last Vital Signs Temp 97.2 F 04/09/21 07:32 Pulse 76 04/09/21 13:10 Resp 20 04/09/21 07:32 BP 121/61 04/09/21 07:32 Pulse Ox 95 04/09/21 07:32 Body Mass Index 38.7 General no acute distress. Neck supple, no JVD. CVS regular rate rhythm, Respiratory lungs bilateral expiratory wheeze, diminished breath sounds, no use of accessory muscles no respiratory distress Gastrointestinal abdomen soft, nontender, bowel sounds audible, no guarding , no rigidity. Extremities no edema. Neuro nonfocal Skin no rash Objective Data Current Medications Generic Name Dose Route Start Last Admin Trade Name Freq PRN Reason Stop Dose Admin Acetaminophen 650 mg 04/08/21 13:40 04/09/21 01:53 Acetaminophen 325 Mg Tablet PO 650 mg Q6H PRN Administration Pain, Mild (Pain Scale 1-3) Albuterol/Ipratropium 3 ml 04/08/21 16:38 04/09/21 12:59 Albuterol/Iprat 2.5/0.5mg 3 Ml Ampul.Neb INHALE 3 ml RQ4H WHILE AWAKE TEJA Administration Azithromycin 500 mg 04/08/21 18:00 04/08/21 20:01 Azithromycin 500 Mg Tablet PO 500 mg Q24H TEJA Administration Docusate Sodium 100 mg 04/08/21 21:00 04/09/21 08:11 Docusate Sodium 100 Mg Capsule PO 100 mg BID TEJA Administration Enoxaparin Sodium 40 mg 04/08/21 16:00 04/08/21 17:44 Enoxaparin Sodium 40 Mg/0.4 Ml Syringe SUBCUT 40 mg Q24H TEJA Administration Guaifenesin/Dextromethorphan 10 ml 04/08/21 16:38 04/09/21 13:32 Guaifenesin Dm 200/20/10 Ml 10 Ml Syrup PO 10 ml QID PRN Administration cough [place] Carbonate 600 mg 04/08/21 21:00 04/09/21 08:50 [place] Carbonate Er 300 Mg Tablet.Er PO 600 mg BID TEJA Administration Methylprednisolone Sodium Succinate 40 mg 04/08/21 16:38 04/09/21 08:21 Methylprednisolone Sod Succ 40 Mg/Ml Vial IVPUSH 40 mg Q8H TEJA Administration Nicotine 7 mg 04/08/21 18:00 04/09/21 08:13 Nicotine 7 Mg Patch.Td24 TRANSDERMA 7 mg DAILY TEJA Administration Omeprazole 20 mg 04/09/21 06:30 04/09/21 06:14 Omeprazole 20 Mg Capsule.Dr PO 20 mg DAILY@0630 TEJA Administration Ondansetron HCl 4 mg 04/08/21 13:40 Ondansetron Hcl 4 Mg/2 Ml Vial IVPUSH Q8H PRN Nausea and Vomiting Pharmacy Consult 1 each 04/08/21 11:09 Consult Rx Perform Med Rec MISCELLANE ONCE PRN Consult order Prazosin HCl 1 mg 04/08/21 21:00 04/08/21 20:04 Prazosin Hcl 1 Mg Capsule PO 1 mg BEDTIME TEJA Administration Protocol Sertraline HCl 75 mg 04/09/21 09:00 04/09/21 08:10 Sertraline Hcl 50 Mg Tablet PO 75 mg DAILY TEJA Administration Sodium Chloride 3 ml 04/08/21 16:38 04/09/21 08:29 0.9 % Sodium Chloride Flush 3 Ml Syringe IVFLUSH 3 ml QSHIFT TEJA Administration Trazodone HCl 100 mg 04/08/21 13:40 Trazodone Hcl 100 Mg Tablet PO BEDTIME PRN insomnia Valacyclovir HCl 1,000 mg 04/08/21 21:00 04/09/21 08:10 Valacycyclovir Hcl 1,000 Mg Tablet PO 1,000 mg BID TEJA Administration Vitamin D 25 mcg 04/09/21 09:00 04/09/21 08:11 Cholecalciferol (Vitamin D3) 25 Mcg Tablet PO 25 mcg DAILY TEJA Administration Labs CBC & Chem 7: 04/08/21 09:57 04/08/21 09:57 Assessment and Plan (1) Asthma with exacerbation: Status: Acute (2) Tobacco use disorder: Status: Acute (3) PTSD (post-traumatic stress disorder): Status: Chronic (4) Borderline personality disorder: Status: Chronic (5) FABIOLA (obstructive sleep apnea): Status: Chronic Assessment and Plan: 51-year-old female active smoker,history of overlap syndrome, presented to [facility] with acute onset of shortness of breath associated with feeling hot and sweaty. Workup in the ER is consistent with chronic obstructive pulmonary disease exacerbation. 1. Chronic obstructive pulmonary disease exacerbation. Feeling better less tachypneic and tachycardic able to talk in full sentences, is still short of breath with exertion, chest x-ray showed questionable ground-glass opacity right lateral base Will continue IV steroids , scheduled and as needed updraft if symptoms improves will switch to by mouth prednisone for 5 days and discharged home Continue azithromycin day 2/5 for possible bronchitis and anti-inflammatory effect. Continue supportive care with cough medication, encourage out of bed to chair, add incentive spirometer 2. Tobacco use disorder. Initially patient admitted to smoking 3 cigarettes a day but later admits to smoking greater than 1 pack of cigarette a day Will place on nicotine patch 21 mg daily strongly advised to abstain from smoking counseling done 3. History of bipolar disorder. Continue home medications. 4. Morbid obesity. Weight loss encouraged. 5. Code status, full code. 6. Deep vein thrombosis prophylaxis, on Lovenox.
--- NOTE | 2021-04-09 15:03 | MHC.CM.PN ---
NURSE SUPERVISOR CELL ROOM NOTE ELECTRONIC MEDICAL RECORD REVIEWED ALONG WITH CASE DISCUSSED ON MULTIPLE DISCIPLINARY ROUNDS MET WITH PATIENT AND EXPLAINED THE ROLE OF THE NURSE SUPERVISOR CELL ROOM TO HER , SHE WAS ALERT , ORIENTATED AND ENGAGING IN CONVERSATION, PATIENT LIVES IN APARTMENT,+ SHE WAS ADMITTED FOR COPD EXACERBATION AND ON IV STEROIDS, OXYGEN IV ANTIBIOTICS. 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 PATIENT HAS HISTORY OF ASTHMA AND COPD REPORTS SHE HAS A NEBULIZER THAT WAS PAYED BY [employer] AND HAS A CPAP FROM WHEN SHE Was young and lost it , encouraged her to discuss with her pcp about this and possibley have a sleep study. she reports she is active ,independent all adls and mobility she requested though a script for a walker, she has no vna services nor groover and striper operator services discharge plan home with no new services vs home with new referral to the [facility] nursing diagnosis assessment and sugn/symptom management. 2.self resumption of her mental health counseling at [facility] [place] 3. [facility] community meg toscano 4. pcp at the [facility] 5 transportation family/friends
[2021-04-09] MEDS: Nicotine 21 MG PATCH.TD24 TRANSDERMA (15:39)
[2021-04-09] MEDS: Enoxaparin Sodium 40 MG/0.4 ML SYRINGE SUBCUT (15:41)
[2021-04-09] MEDS: ondansetron HCL 4 MG/2 ML VIAL IVPUSH (15:43)
--- NOTE | 2021-04-09 16:13 | PC.NURSE ---
Addendum entered by Kimber Cason RN 04/09/21 16:24: requested for Dr. Cavazos to come and see patient Original Note: P patient complains of chest pain since yesterday,c/o itchyness at IV site,anxious I IV site clean no redness,no,swelling,Tylenol administered,Dr. Cavazos notified e will monitor
[2021-04-09] MEDS: hydrOXYzine HCL 25 MG TABLET PO (16:34)
[2021-04-09] MEDS: Azithromycin 500 MG TABLET PO (17:17)
[2021-04-09] MEDS: Prazosin HCL 1 MG CAPSULE PO (20:57)
[2021-04-10] VITALS (7 sets, daily range): BP systolic 115–142; BP diastolic 67–81; PULSE 70–89; RESP 16; TEMP 36–36.2; O2SAT 86–97
[2021-04-10] MEDS: 0.9 % Sodium Chloride Flush 3 ML SYRINGE IVFLUSH ×2 (00:27→08:02)
[2021-04-10] MEDS: methylPREDNISolone Sod Succ 40 MG/ML VIAL IVPUSH (00:28)
[2021-04-10] MEDS: Omeprazole 20 MG CAPSULE.DR PO (06:06)
[2021-04-10] MEDS: guaiFENesin DM 200/20/10 ML 10 ML SYRUP PO ×4 (08:01→20:30)
[2021-04-10] MEDS: Cholecalciferol (Vitamin D3) 25 MCG TABLET PO (08:01)
[2021-04-10] MEDS: Docusate Sodium 100 MG CAPSULE PO ×2 (08:02→20:30)
[2021-04-10] MEDS: Lithium Carbonate ER 300 MG TABLET.ER 600 MG PO ×2 (08:02→20:31)
[2021-04-10] MEDS: Sertraline HCL 50 MG TABLET 75 MG PO (08:02)
[2021-04-10] MEDS: Albuterol/Iprat 2.5/0.5MG 3 ML AMPUL.NEB INHALE ×4 (09:04→20:08)
[2021-04-10] MEDS: predniSONE 20 MG TABLET 40 MG PO (14:28)
[2021-04-10] MEDS: Nicotine 21 MG PATCH.TD24 TRANSDERMA (14:29)
--- NOTE | 2021-04-10 15:02 | MHC.CM.PN ---
NURSE GLOBAL PROFESSIONAL NOTE ELECTRONIC MEDICAL RECORD REVIEW PER DOCUMENTATION PATIENT CONTINUES TO BE ON 2 LITERS O2, WITH DMONITORING ALL LABS PATIENT HAS BEEN ANXIOUS AT TIMES GLOBAL PROFESSIONAL TO CONTINUE TO FOLLOW FOR ANY CHANGES IN DISCHARGE NEEDSIMINISHED BREATH SOUNDS, CONTINUES RECIVING IV STEROIDS, PO COUGH MEDICINE,
--- NOTE | 2021-04-10 15:44 | HO.PM.IMPN ---
Subjective Subjective Date of Service: 04/10/21 Interval History: pt seen and examined at bedside. complains of worsening sob when takes O2 off. currently on 1 l. she still has wheezing . denies any abd pain, n/v, no urinary symptoms Physical Exam Vital Signs: Vital Signs: Last Vital Signs Temp 96.8 F 04/10/21 15:24 Pulse 89 04/10/21 15:43 Resp 16 04/10/21 15:24 BP 135/67 04/10/21 15:24 Pulse Ox 95 04/10/21 15:24 Body Mass Index 38.7 Const: General: cooperative and no acute distress Resp: Other: wheezing Effort & Inspection: able to speak in complete sentences Cardio: Rate: regular rate Rhythm: regular rhythm GI: Palpation (GI): Soft to palpation Auscultation: normal bowel sounds Neuro: Cognition (Neuro): normal cognition Extrem: General: Yes normal to inspection and Yes no pedal edema Objective Data Current Medications Generic Name Dose Route Start Last Admin Trade Name Freq PRN Reason Stop Dose Admin Acetaminophen 650 mg 04/08/21 13:40 04/09/21 15:41 Acetaminophen 325 Mg Tablet PO 650 mg Q6H PRN Administration Pain, Mild (Pain Scale 1-3) Albuterol/Ipratropium 3 ml 04/08/21 16:38 04/10/21 15:42 Albuterol/Iprat 2.5/0.5mg 3 Ml Ampul.Neb INHALE 3 ml RQ4H WHILE AWAKE TEJA Administration Azithromycin 500 mg 04/08/21 18:00 04/09/21 17:17 Azithromycin 500 Mg Tablet PO 500 mg Q24H TEJA Administration Docusate Sodium 100 mg 04/08/21 21:00 04/10/21 08:02 Docusate Sodium 100 Mg Capsule PO 100 mg BID TEJA Administration Enoxaparin Sodium 40 mg 04/08/21 16:00 04/09/21 15:41 Enoxaparin Sodium 40 Mg/0.4 Ml Syringe SUBCUT 40 mg Q24H TEJA Administration Guaifenesin/Dextromethorphan 10 ml 04/09/21 17:00 04/10/21 12:25 Guaifenesin Dm 200/20/10 Ml 10 Ml Syrup PO 10 ml QID TEJA Administration Hydroxyzine HCl 25 mg 04/09/21 16:19 04/09/21 16:34 Hydroxyzine Hcl 25 Mg Tablet PO 25 mg Q8H PRN Administration Allergic Symptoms [place] Carbonate 600 mg 04/08/21 21:00 04/10/21 08:02 [place] Carbonate Er 300 Mg Tablet.Er PO 600 mg BID TEJA Administration Nicotine 21 mg 04/09/21 15:30 04/10/21 14:29 Nicotine 21 Mg Patch.Td24 TRANSDERMA 21 mg DAILY@1500 TEJA Administration Omeprazole 20 mg 04/09/21 06:30 04/10/21 06:06 Omeprazole 20 Mg Capsule. PO 20 mg DAILY@0630 TEJA Administration Ondansetron HCl 4 mg 04/08/21 13:40 04/09/21 15:43 Ondansetron Hcl 4 Mg/2 Ml Vial IVPUSH 4 mg Q8H PRN Administration Nausea and Vomiting Pharmacy Consult 1 each 04/08/21 11:09 Consult Rx Perform Med Rec MISCELLANE ONCE PRN Consult order Prazosin HCl 1 mg 04/08/21 21:00 04/09/21 20:57 Prazosin Hcl 1 Mg Capsule PO 1 mg BEDTIME TEJA Administration Protocol Prednisone 40 mg 04/10/21 13:40 04/10/21 14:28 Prednisone 20 Mg Tablet PO 40 mg DAILY TEJA Administration Sertraline HCl 75 mg 04/09/21 09:00 04/10/21 08:02 Sertraline Hcl 50 Mg Tablet PO 75 mg DAILY TEJA Administration Sodium Chloride 3 ml 04/08/21 16:38 04/10/21 08:02 0.9 % Sodium Chloride Flush 3 Ml Syringe IVFLUSH 3 ml QSHIFT TEJA Administration Trazodone HCl 100 mg 04/08/21 13:40 Trazodone Hcl 100 Mg Tablet PO BEDTIME PRN insomnia Valacyclovir HCl 1,000 mg 04/08/21 21:00 04/10/21 08:01 Valacycyclovir Hcl 1,000 Mg Tablet PO 1,000 mg BID TEJA Administration Vitamin D 25 mcg 04/09/21 09:00 04/10/21 08:01 Cholecalciferol (Vitamin D3) 25 Mcg Tablet PO 25 mcg DAILY TEJA Administration Labs CBC & Chem 7: 04/08/21 09:57 04/08/21 09:57 Assessment and Plan (1) Asthma with exacerbation: Status: Acute Assessment and Plan: 51-year-old female active smoker,history of overlap syndrome, presented to [facility] with acute onset of shortness of breath associated with feeling hot and sweaty. Workup in the ER is consistent with chronic obstructive pulmonary disease exacerbation. # Chronic obstructive pulmonary disease exacerbation - improving - still wheezing, requiring 1 L of O2 - will switch her IV steroids to p.o. 40 mg - continue azithromycin day 3 of 5 - Continue supportive care with cough medication, encourage out of bed to chair, add incentive spirometer # acute hypoxic respiratory failure - requiring O2 on admission currently on 1 L - secondary to COPD exacerbation - titrate oxygen down as patient is not on any oxygen at home #. Tobacco use disorder. Initially patient admitted to smoking 3 cigarettes a day but later admits to smoking greater than 1 pack of cigarette a day Will place on nicotine patch 21 mg daily strongly advised to abstain from smoking counseling done # History of bipolar disorder. Continue home medications. # Morbid obesity. Weight loss encouraged. Code status, full code. Deep vein thrombosis prophylaxis, on Lovenox.
[2021-04-10] MEDS: Enoxaparin Sodium 40 MG/0.4 ML SYRINGE SUBCUT (15:58)
[2021-04-10] MEDS: Azithromycin 500 MG TABLET PO (18:06)
[2021-04-10] MEDS: Prazosin HCL 1 MG CAPSULE PO (20:31)
[2021-04-11] VITALS: BP 101/58; PULSE 66; RESP 16; TEMP 36.4; O2SAT 95
[2021-04-11] MEDS: Omeprazole 20 MG CAPSULE.DR PO (05:46)
[2021-04-11 07:39] VITALS: BP 124/70; PULSE 68; RESP 17; TEMP 36.2; O2SAT 94
[2021-04-11] MEDS: Sertraline HCL 50 MG TABLET 75 MG PO (08:17)
[2021-04-11] MEDS: predniSONE 20 MG TABLET 40 MG PO (08:17)
[2021-04-11] MEDS: Lithium Carbonate ER 300 MG TABLET.ER 600 MG PO (08:18)
[2021-04-11] MEDS: Docusate Sodium 100 MG CAPSULE PO (08:18)
[2021-04-11] MEDS: Cholecalciferol (Vitamin D3) 25 MCG TABLET PO (08:18)
[2021-04-11] MEDS: guaiFENesin DM 200/20/10 ML 10 ML SYRUP PO (08:18)
--- NOTE | 2021-04-11 09:07 | MHC.CM.PN ---
PATIENT IS RETURNING HOME - SELF CARE. FAMILY TO TRANSPORT
--- NOTE | 2021-04-11 16:47 | P.DS_ITS ---
DS: Providers Provider Date of Service: 04/11/21 Date of admission: 04/08/21 13:40 Primary care physician: Unknown Physician DS: Diagnosis Discharge Diagnosis (1) Asthma with exacerbation: Status: Acute DS: Medications Discharge Medications Home Medications: Previous Rx's Medication Instructions Recorded Spiriva Respimat 2 puff PO DAILY 30 Days #4 g 03/17/21 albuterol sulfate 2 puff INHALATION QID PRN 30 Days 03/17/21 #1 g cholecalciferol (vitamin D3) 25 mcg PO DAILY 30 Days #30 tab 03/17/21 docusate sodium 100 mg PO BID 30 Days #60 cap 03/17/21 ferrous sulfate 324 mg PO DAILY 30 Days #30 tab 03/17/21 fluticasone propion-salmeterol 1 inh INHALATION BID 30 Days #1 ea 03/17/21 lithium carbonate 600 mg PO BID 30 Days #120 tab 03/17/21 omeprazole 20 mg PO DAILY@0630 30 Days #30 cap 03/17/21 prazosin 1 mg PO BEDTIME 30 Days #30 cap 03/17/21 sertraline 75 mg PO DAILY 30 Days #45 tab 03/17/21 trazodone 100 mg PO BEDTIME PRN 30 Days #30 03/17/21 tab valacyclovir [Valtrex] 1,000 mg PO BID 30 Days #60 tab 03/17/21 dextromethorphan-guaifenesin 10 ml PO QID 5 Days #200 ml 04/11/21 nicotine 21 mg TRANSDERMAL DAILY@1500 14 04/11/21 Days ea prednisone 40 mg PO DAILY 5 Days #10 tab 04/11/21 DS: Summary Hospital Course Hospital Course: This is a 51-year-old female who is an active smoker, with a history of asthma as well as COPD exacerbation who presents to the hospital with complaints of shortness of breath found to be COPD exacerbation. Patient was treated with IV Solu-Medrol that was switched to p.o. prednisone in the ED, patient also required oxygen but was titrated off prior to discharge, chest x-ray also showed questionable ground-glass opacity and patient was treated with azithromycin wit h resolution of her symptoms completely. Patient will be discharged home on prednisone x5 days, cough medication. Patient weaned oxygen, exam showed no wheezing, patient had no difficulty with ambulation. She will be going home. Smoke cessation was also discussed with patient and patient discharged with prescription for nicotine patch. Time spent discussing smoking cessation with patient: more than 10 minutes Time Spent with Patient Time attestation: Total time spent providing and/or coordinating discharge services: Discharge coordination time: Greater than 30 minutes Quality: Stroke Does the patient have a stroke diagnosis?: No Physical Exam Vital Signs: Vital Signs: Last Vital Signs Temp 97.2 F 04/11/21 07:39 Pulse 68 04/11/21 07:39 Resp 17 04/11/21 07:39 BP 124/70 04/11/21 07:39 Pulse Ox 94 04/11/21 07:39 Body Mass Index 38.7 Const: General: cooperative and no acute distress Eyes: General: appearance normal, both eyes and all related structures Resp: Other: No wheezing Effort & Inspection: normal respiratory effort Auscultation: clear to auscultation bilaterally Cardio: Rate: regular rate Rhythm: regular rhythm GI: Palpation (GI): Soft to palpation Auscultation: normal bowel sounds Skin: General skin exam: no rashes or lesions noted Neuro: Cognition (Neuro): normal cognition Extrem: General: Yes normal to inspection and Yes no pedal edema Discharge Plan Discharge Patient Disposition: Home, Self-Care Discharge Diagnosis: COPD exacerbation Referrals: Physician,Unknown [Primary Care Provider] - 1 Week Discharge Medications: New prednisone 20 mg Tablet 40 mg PO DAILY 5 Days Qty: 10 RF: 0 dextromethorphan-guaifenesin 10-100 mg/5 mL Syrup 10 ml PO QID 5 Days Qty: 200 RF: 0 nicotine 21 mg/24 hr Patch 24 Hour 21 mg transdermal DAILY@1500 14 Days RF: 0 Continued prazosin 1 mg Capsule 1 mg PO BEDTIME 30 Days Qty: 30 RF: 0 lithium carbonate 300 mg Tablet Extended Release 600 mg PO BID 30 Days Qty: 120 RF: 0 sertraline 50 mg Tablet 75 mg PO DAILY 30 Days Qty: 45 RF: 0 valacyclovir [Valtrex] 1 gram Tablet 1,000 mg PO BID 30 Days Qty: 60 RF: 0 trazodone 100 mg tablet 100 mg PO BEDTIME PRN (Reason: insomnia) 30 Days Qty: 30 RF: 0 docusate sodium 100 mg Capsule 100 mg PO BID 30 Days Qty: 60 RF: 0 omeprazole 20 mg Capsule,Delayed Release(Dr/Ec) 20 mg PO DAILY@0630 30 Days Qty: 30 RF: 0 albuterol sulfate 90 mcg/actuation HFA aerosol inhaler 2 puff inhalation QID PRN (Reason: wheezing) 30 Days Qty: 1 RF: 1 cholecalciferol (vitamin D3) 25 mcg (1,000 unit) Tablet 25 mcg PO DAILY 30 Days Qty: 30 RF: 0 ferrous sulfate 324 mg (65 mg iron) Tablet,Delayed Release (Dr/Ec) 324 mg PO DAILY 30 Days Qty: 30 RF: 0 Spiriva Respimat 1.25 mcg/actuation mist 2 puff PO DAILY 30 Days Qty: 4 RF: 0 fluticasone propion-salmeterol 232-14 mcg/actuation aerosol powdr breath activated 1 inh inhalation BID 30 Days Qty: 1 RF: 0 Discharge Orders: Discharge Order (Routine); Ordered 04/11/21 Ordered By: Katelyn Macias Diet: advance to usual diet Activity on Discharge: As tolerated Stand Alone Forms: Patient Portal Discharge page Care Plan Goals: Abstinence from smoking , recovery, avoid hospitalization Health Concerns: Tobacco use disorder, Asthma/COPD exacerbation Plan of Treatment: You were admitted for COPD/Asthma exacerbation. Please continue taking prednisone 40 mg daily for the next 5 days. Please abstain from smoking cigarettes. Assessment: COPD/asthma exacerbation was treated with breathing treatments as well as course of IV steroids and azithromycin. Oxygen supplement was also used. Patient has been weaned off completely off of oxygen. Achieved complete resolution of symptoms. Please continue using Prednisone. Abstain from tobacco. Discharge Date/Time: 04/11/21 09:50
== END 2021-04-11 09:50 | disposition home or self-care (01) | DRG 140 ==
LOC: HO.ED 11:08 → HO.S3 14:11
PROVIDERS: Admitting Provider Hospitalist; Emergency Provider Emergency Medicine; Visit Provider Internal Medicine
DX: J44.1 Chronic obstructive pulmonary disease with (acute) exacerbation (principal); J96.01 Acute respiratory failure with hypoxia; J45.51 Severe persistent asthma with (acute) exacerbation; E66.01 Morbid (severe) obesity due to excess calories; F17.210 Nicotine dependence, cigarettes, uncomplicated; F31.9 Bipolar disorder, unspecified; Z20.822 Contact with and (suspected) exposure to COVID-19; Z71.6 Tobacco abuse counseling; Z68.38 Body mass index [BMI] 38.0-38.9, adult; Z88.0 Allergy status to penicillin; Z88.2 Allergy status to sulfonamides; Z88.6 Allergy status to analgesic agent; Z79.51 Long term (current) use of inhaled steroids; Z79.899 Other long term (current) drug therapy
CPT/HCPCS: 36415; 71045; 80048; 80076; 80307; 83735; 85025; 87635; 93005; 94640; 94644; 99285; J1650; J2405; J2920; J2930; J3475

== ENCOUNTER 2021-04-19 21:51 | Inpatient (IN) | payer OTHER, MEDICAID, SELFPAY ==
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
[2021-04-19 22:11] VITALS: BP 144/98; PULSE 112; RESP 22; TEMP 36.7; O2SAT 92; BMI 34.9
[2021-04-19 22:12] VITALS: BMI 40.3
--- NOTE | 2021-04-19 23:09 | PC.NURSE ---
PT DESCRIBES SI WITH PLAN TO OVERDOSE ON HER PILLS. MAKING PARANOID STATEMENTS, BECOMING MORE EASILY REDIRECTED AND AGREEABLE TO PO MEDICATION. SUPERVISED BY THIS RN UNTIL TRANSFER TO POD.
--- NOTE | 2021-04-19 23:10 | PC.NURSE ---
Patient just got transferred from main ED, compliant with transfer process, calm and quiet, denied distress at this time, will continue to monitor.
[2021-04-19 23:50] LABS: Color Urine DARK YELLOW; Glucose Urine UA NEG (NEG); Leukocyte Esterase Urine NEG (NEG); Nitrite Urine NEG (NEG); PH 6.5 (5.0-8.0); Specific Gravity - Urine 1.025 (1.005-1.025); UACC CULT NO; Urine Blood NEG (NEG); Urine Ketones NEG (NEG); Urine Protein TRACE MG/DL (NEG-TRACE)
[2021-04-19 23:51] LABS: Appearance Urine CLEAR
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
[2021-04-19 23:58] LABS: Amorphous Sediment Urine 1+ /LPF; Amphetamine Screen Urine Not Detected (Not Detect); Barbiturates, Urine Not Detected (Not Detect); Benzodiazepines Screen Urine Not Detected (Not Detect); Cannabinoid Screen Urine Not Detected (Not Detect); Cocaine Screen Urine Not Detected (Not Detect); Mucus Urine 2+ /LPF; Opiate Screen Urine Not Detected (Not Detect); Phencyclidine Screen Urine Not Detected (Not Detect); RBC Urine 0-2 /HPF (0); Squamous Epithelial Cell Urine 2+ /LPF; WBC Urine 0-2 /HPF (0-4)
[2021-04-20 00:03] LABS: COVID-19 Test Negative (Negative)
[2021-04-20 00:43] VITALS: BP 107/69; PULSE 90; RESP 16; TEMP 36.4; O2SAT 96
--- NOTE | 2021-04-20 03:50 | PC.NURSE ---
PIETER faxed/called/spoke with Naida/confirmed receipt of referral/notified that patient will be seen in the morning.
--- NOTE | 2021-04-20 07:11 | PC.NURSE ---
patient appears to remain at rest patient appears in no distress, breathing even and unlabored
[2021-04-20 11:15] VITALS: BP 120/71; PULSE 75; RESP 16; TEMP 37.1; O2SAT 93
--- NOTE | 2021-04-20 11:44 | PC.NURSE ---
verified N referral w hotline number
[2021-04-20] MEDS: Sertraline HCL 25 MG TABLET 75 MG PO ×2 (13:12)
[2021-04-20] MEDS: Omeprazole 20 MG CAPSULE.DR PO (13:12)
[2021-04-20] MEDS: Cholecalciferol (Vitamin D3) 25 MCG TABLET PO (13:13)
[2021-04-20] MEDS: Ferrous Sulfate 324 MG TABLET.DR PO (13:13)
[2021-04-20] MEDS: Nicotine 21 MG PATCH.TD24 TRANSDERMA (14:44)
--- NOTE | 2021-04-20 17:29 | ECG_ITS ---
Test Reason : COCAINE USE Blood Pressure : / mmHG Vent. Rate : 075 BPM Atrial Rate : 075 BPM P-R Int : 142 ms QRS Dur : 084 ms QT Int : 398 ms P-R-T Axes : 039 047 038 degrees QTc Int : 444 ms Normal sinus rhythm Normal ECG When compared with ECG of 08-APR-2021 09:32, T wave inversion no longer evident in Inferior leads Nonspecific T wave abnormality, improved in Anterior leads Referred By: Derrek Will Electronically Signed By:Deangelo Gutierres
--- NOTE | 2021-04-20 19:43 | PC.NURSE ---
Patient in bed appears sleeping at this time, pending admission to , no distress observed/reported, will continue to monitor.
[2021-04-20] MEDS: Docusate Sodium 100 MG CAPSULE PO (22:32)
[2021-04-20] MEDS: Lithium Carbonate ER 300 MG TABLET.ER 600 MG PO (22:32)
[2021-04-20 22:33] VITALS: BP 117/70; PULSE 77
[2021-04-20] MEDS: Prazosin HCL 1 MG CAPSULE PO (22:33)
[2021-04-20] MEDS: traZODone HCL 100 MG TABLET PO (22:33)
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
[2021-04-21] MEDS: Cholecalciferol (Vitamin D3) 25 MCG TABLET PO (09:24)
[2021-04-21] MEDS: Omeprazole 20 MG CAPSULE.DR PO (09:24)
[2021-04-21] MEDS: Lithium Carbonate ER 300 MG TABLET.ER 600 MG PO ×2 (09:25→22:27)
[2021-04-21] MEDS: Ferrous Sulfate 324 MG TABLET.DR PO (09:25)
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
[2021-04-21] MEDS: Albuterol Sulfate 90 MCG 8 GM INHALER 2 PUFF INHALE (10:17)
[2021-04-21] MEDS: Fluticasone/Vilanterol 200/25 BLST.W.DEV 1 PUFF INHALE (10:21)
[2021-04-21 17:11] LABS: MANUAL DIFF FLAG NO
[2021-04-21 17:14] LABS: Basophils Absolute Auto 0.1 X10*3/uL (0.0-0.2); Basophils Percent Auto 0.6 % (0-2); Eosinophils Absolute Auto 0.1 X10*3/uL (0.0-0.4); Imm Gran Abs Auto 0.02 X10*3/uL (0.00-0.03); Imm Gran Pct Auto 0.2 % (0.0-0.4); Lymphocytes Absolute Auto 2.5 X10*3/uL (1.2-4.9); Lymphocytes Percent Auto 28.6 % (20-40); Mean Corpuscular HGB Conc 31.7 g/dl (31.0-35.0); Mean Corpuscular Hemoglobin 29.4 pg (27.0-33.0); Mean Corpuscular Volume 92.8 fL (80-98); Monocytes Absolute Auto 0.6 X10*3/uL (0.1-1.2); Monocytes Percent Auto 6.7 % (2-11); Neutrophils Absolute Auto 5.4 X10*3/uL (2.0-8.3); Neutrophils Percent Auto 62.9 % (45-73); Platelet Count 245 X10*3/uL (160-400); Red Blood Count 4.42 X10*6/uL (4.20-5.50); Red Cell Distribution Width 12.8 % (11.0-16.0); White Blood Count 8.6 X10*3/uL (4.8-10.8)
[2021-04-21 17:49] LABS: Alanine Aminotransferase 16 U/L (0-31); Alkaline Phosphatase 67 U/L (39-117); Anion Gap 12 (12-20); Aspartate Amino Transferase 19 U/L (5-31); Bilirubin Direct < 0.2 mg/dL (0.0-0.5); Bilirubin Total 0.3 mg/dL (0.0-1.0); Blood Urea Nitrogen 14 mg/dL (9-16); Carbon Dioxide 26 mmol/L (22-29); Chloride 107 mmol/L (96-108); Estimated Glomerular Filt Rate > 60; Potassium 4.6 mmol/L (3.3-5.1); Sodium 140 mmol/L (135-145); Total Protein 6.4 g/dL (6.5-8.0)
[2021-04-21 22:20] VITALS: BP 129/71; PULSE 79; TEMP 36.7
[2021-04-21 22:27] VITALS: BP 129/71; PULSE 79
[2021-04-21] MEDS: Docusate Sodium 100 MG CAPSULE PO (22:27)
[2021-04-21] MEDS: Prazosin HCL 1 MG CAPSULE PO (22:27)
[2021-04-22 06:00] VITALS: BP 131/67; PULSE 79; RESP 18; TEMP 36.8; O2SAT 93
[2021-04-22] MEDS: Omeprazole 20 MG CAPSULE.DR PO (08:17)
[2021-04-22] MEDS: Ferrous Sulfate 324 MG TABLET.DR PO (08:19)
[2021-04-22] MEDS: Lithium Carbonate ER 300 MG TABLET.ER 600 MG PO ×2 (08:19→22:15)
[2021-04-22] MEDS: Cholecalciferol (Vitamin D3) 25 MCG TABLET PO (08:19)
[2021-04-22] MEDS: Nicotine 21 MG PATCH.TD24 TRANSDERMA (08:20)
[2021-04-22] MEDS: Fluticasone/Vilanterol 200/25 BLST.W.DEV 1 PUFF INHALE (08:26)
[2021-04-22] MEDS: Acetaminophen 325 MG TABLET 975 MG PO (08:31)
[2021-04-22] MEDS: Sertraline HCL 25 MG TABLET 75 MG PO (08:53)
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
[2021-04-22 17:00] VITALS: BP 117/69; PULSE 81; RESP 18; TEMP 36; O2SAT 93
[2021-04-22] MEDS: traZODone HCL 50 MG TABLET 150 MG PO (22:14)
[2021-04-22 23:02] VITALS: BP 133/65; PULSE 72
[2021-04-22] MEDS: Prazosin HCL 1 MG CAPSULE PO (23:02)
[2021-04-23] MEDS: Omeprazole 20 MG CAPSULE.DR PO (05:56)
[2021-04-23 06:00] VITALS: BP 107/55; PULSE 76; RESP 22; TEMP 36.3; O2SAT 95
[2021-04-23] MEDS: Nicotine 21 MG PATCH.TD24 TRANSDERMA (09:04)
[2021-04-23] MEDS: Lithium Carbonate ER 300 MG TABLET.ER 600 MG PO ×2 (09:05→20:57)
[2021-04-23] MEDS: Cholecalciferol (Vitamin D3) 25 MCG TABLET PO (09:05)
[2021-04-23] MEDS: Sertraline HCL 25 MG TABLET 75 MG PO (09:05)
[2021-04-23] MEDS: Ferrous Sulfate 324 MG TABLET.DR PO (09:06)
[2021-04-23] MEDS: Acetaminophen 325 MG TABLET 975 MG PO (09:14)
[2021-04-23] MEDS: Fluticasone/Vilanterol 200/25 BLST.W.DEV 1 PUFF INHALE (09:18)
[2021-04-23 10:11] VITALS: BMI 39.2
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
[2021-04-23] MEDS: chlorproMAZINE HCl 25 MG TABLET 12.5 MG PO (16:35)
[2021-04-23] MEDS: Loperamide HCl 2 MG CAPSULE PO (16:36)
[2021-04-23 16:52] VITALS: BP 119/63; PULSE 79; RESP 18; TEMP 36.6; O2SAT 93
[2021-04-23] MEDS: traZODone HCL 50 MG TABLET 150 MG PO (20:56)
[2021-04-23 20:57] VITALS: BP 127/63; PULSE 79
[2021-04-23] MEDS: Prazosin HCL 1 MG CAPSULE PO (20:57)
[2021-04-24] MEDS: Sertraline HCL 25 MG TABLET 75 MG PO (09:04)
[2021-04-24] MEDS: Fluticasone/Vilanterol 200/25 BLST.W.DEV 1 PUFF INHALE (09:05)
[2021-04-24] MEDS: Cholecalciferol (Vitamin D3) 25 MCG TABLET PO (09:05)
[2021-04-24] MEDS: Omeprazole 20 MG CAPSULE.DR PO (09:05)
[2021-04-24] MEDS: Lithium Carbonate ER 300 MG TABLET.ER 600 MG PO ×2 (09:05→21:56)
[2021-04-24] MEDS: Ferrous Sulfate 324 MG TABLET.DR PO (09:05)
[2021-04-24] MEDS: Nicotine 21 MG PATCH.TD24 TRANSDERMA (09:08)
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
[2021-04-24 16:19] VITALS: BP 101/56; PULSE 82; RESP 18; TEMP 36.2; O2SAT 95
[2021-04-24 21:50] VITALS: BP 148/69; PULSE 81; TEMP 36.8
[2021-04-24 21:56] VITALS: BP 148/69; PULSE 81
[2021-04-24] MEDS: Prazosin HCL 1 MG CAPSULE PO (21:56)
[2021-04-24] MEDS: traZODone HCL 50 MG TABLET 150 MG PO (21:56)
[2021-04-24] MEDS: chlorproMAZINE HCl 25 MG TABLET 12.5 MG PO (21:56)
[2021-04-25 06:00] VITALS: BP 128/72; PULSE 74; RESP 16; TEMP 36.3; O2SAT 93
[2021-04-25] MEDS: Omeprazole 20 MG CAPSULE.DR PO (06:10)
[2021-04-25] MEDS: Fluticasone/Vilanterol 200/25 BLST.W.DEV 1 PUFF INHALE (08:16)
[2021-04-25] MEDS: Ferrous Sulfate 324 MG TABLET.DR PO (08:18)
[2021-04-25] MEDS: Lithium Carbonate ER 300 MG TABLET.ER 600 MG PO ×2 (08:18→20:45)
[2021-04-25] MEDS: Cholecalciferol (Vitamin D3) 25 MCG TABLET PO (08:18)
[2021-04-25] MEDS: Sertraline HCL 25 MG TABLET 75 MG PO (08:18)
[2021-04-25] MEDS: Nicotine 21 MG PATCH.TD24 TRANSDERMA (08:19)
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
[2021-04-25] MEDS: Acetaminophen 325 MG TABLET 975 MG PO ×2 (12:19→20:55)
[2021-04-25 20:40] VITALS: BP 113/59; PULSE 80; TEMP 36.7
[2021-04-25 20:44] VITALS: BP 113/59; PULSE 80
[2021-04-25] MEDS: Prazosin HCL 1 MG CAPSULE PO (20:44)
[2021-04-25] MEDS: traZODone HCL 50 MG TABLET 150 MG PO (20:44)
[2021-04-26 06:00] VITALS: BP 109/70; PULSE 82; TEMP 36.3
[2021-04-26] MEDS: Omeprazole 20 MG CAPSULE.DR PO (06:36)
[2021-04-26 07:30] LABS: Lithium 0.88 mmol/L (0.60-1.20)
[2021-04-26 07:37] LABS: Anion Gap 11 (12-20); Blood Urea Nitrogen 16 mg/dL (9-16); Carbon Dioxide 29 mmol/L (22-29); Chloride 106 mmol/L (96-108); Creatinine Clr Calc Pharmacy 124.4; Estimated Glomerular Filt Rate > 60; Potassium 4.7 mmol/L (3.3-5.1); Sodium 141 mmol/L (135-145)
[2021-04-26 07:58] LABS: TSH reflex Free T4 1.33 uIU/mL (0.32-4.0)
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
[2021-04-26] MEDS: Fluticasone/Vilanterol 200/25 BLST.W.DEV 1 PUFF INHALE (08:34)
[2021-04-26] MEDS: Nicotine 21 MG PATCH.TD24 TRANSDERMA (08:35)
[2021-04-26] MEDS: Cholecalciferol (Vitamin D3) 25 MCG TABLET PO (08:35)
[2021-04-26] MEDS: Ferrous Sulfate 324 MG TABLET.DR PO (08:35)
[2021-04-26] MEDS: Lithium Carbonate ER 300 MG TABLET.ER 600 MG PO ×2 (08:35→20:49)
[2021-04-26] MEDS: Sertraline HCL 25 MG TABLET 75 MG PO (08:35)
[2021-04-26] MEDS: Acetaminophen 325 MG TABLET 975 MG PO ×2 (09:04→18:38)
[2021-04-26 16:10] VITALS: BP 112/72; PULSE 79; TEMP 36.6
[2021-04-26] MEDS: traZODone HCL 50 MG TABLET 150 MG PO (20:49)
[2021-04-26 20:50] VITALS: BP 140/84; PULSE 87
[2021-04-26] MEDS: Prazosin HCL 1 MG CAPSULE PO (20:50)
[2021-04-27 06:25] VITALS: BP 119/65; PULSE 76; RESP 18; TEMP 36.4; O2SAT 94
[2021-04-27] MEDS: Omeprazole 20 MG CAPSULE.DR PO (07:16)
[2021-04-27] MEDS: Sertraline HCL 25 MG TABLET 75 MG PO (08:12)
[2021-04-27] MEDS: Lithium Carbonate ER 300 MG TABLET.ER 600 MG PO ×2 (08:12→22:24)
[2021-04-27] MEDS: Ferrous Sulfate 324 MG TABLET.DR PO (08:13)
[2021-04-27] MEDS: Cholecalciferol (Vitamin D3) 25 MCG TABLET PO (08:13)
[2021-04-27] MEDS: Nicotine 21 MG PATCH.TD24 TRANSDERMA (08:14)
[2021-04-27] MEDS: Fluticasone/Vilanterol 200/25 BLST.W.DEV 1 PUFF INHALE (08:16)
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
[2021-04-27 18:00] VITALS: BP 133/68; PULSE 82
[2021-04-27] MEDS: Prazosin HCL 1 MG CAPSULE PO (22:24)
[2021-04-27] MEDS: traZODone HCL 50 MG TABLET 150 MG PO (22:24)
[2021-04-28] MEDS: Omeprazole 20 MG CAPSULE.DR PO (05:29)
[2021-04-28 06:00] VITALS: BP 101/64; PULSE 79; TEMP 36.4; O2SAT 95
[2021-04-28] MEDS: Nicotine 21 MG PATCH.TD24 TRANSDERMA (08:09)
[2021-04-28] MEDS: Cholecalciferol (Vitamin D3) 25 MCG TABLET PO (08:10)
[2021-04-28] MEDS: Sertraline HCL 25 MG TABLET 75 MG PO (08:10)
[2021-04-28] MEDS: Lithium Carbonate ER 300 MG TABLET.ER 600 MG PO (08:10)
[2021-04-28] MEDS: Fluticasone/Vilanterol 200/25 BLST.W.DEV 1 PUFF INHALE (08:10)
[2021-04-28] MEDS: Ferrous Sulfate 324 MG TABLET.DR PO (08:10)
[2021-04-28] MEDS: Loperamide HCl 2 MG CAPSULE PO (09:06)
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
--- NOTE | 2021-04-28 10:06 | PC.NURSE ---
PT HAS BEEN VISIBLE ON THE UNIT AND SOCIAL WITH PEERS. SHE HAS BEEN ATTENDING GROUP. SHE IS MEDICATION COMPLIANT. SHE IS OPEN TO EDUCATION REARDING MEDICATIONS AND COPING SKILLS. PT DENIES AUDITORY OR VISUAL HALLUCINATIONS. SHE DENIES DEPRESSION. PT REPORTS THAT HER ANXIETY HAS IMPROVED BUT SHE IS ANXIOUS AROUND DISCHARGE. PT DENIES ANY URGES TO HARM HERSELF OR OTHERS. HER APPTS HAVE BEEN MADE AND PAPERWORK WILL BE FAXED PER [employer]. SHE IS ATTENDING TO ADLS. SHE IS EATING AND SLEEPING WELL.
== END 2021-04-28 11:30 | disposition other institution (70) | DRG 753 ==
LOC: HO.ED 04-20 19:05 → HO.PM5 04-20 19:50
PROVIDERS: Admitting Provider Social Worker; Emergency Provider Student in an Organized Health Care Education/Training Program; Visit Provider Psychiatry & Neurology Psychiatry
DX: F31.5 Bipolar disorder, current episode depressed, severe, with psychotic features (principal); R45.851 Suicidal ideations; F17.210 Nicotine dependence, cigarettes, uncomplicated; F43.10 Post-traumatic stress disorder, unspecified; Z71.6 Tobacco abuse counseling; G47.33 Obstructive sleep apnea (adult) (pediatric); J44.9 Chronic obstructive pulmonary disease, unspecified; F60.3 Borderline personality disorder; B00.9 Herpesviral infection, unspecified; Z20.822 Contact with and (suspected) exposure to COVID-19; Z88.0 Allergy status to penicillin; Z88.2 Allergy status to sulfonamides; Z88.6 Allergy status to analgesic agent; Z79.51 Long term (current) use of inhaled steroids; Z79.899 Other long term (current) drug therapy
CPT/HCPCS: 36415; 71046; 73090; 73130; 80051; 80076; 80178; 80307; 81001; 82565; 84443; 84520; 85025; 87635; 93005; 94660; 99285

== ENCOUNTER 2021-05-19 06:32 | Inpatient (IN) | payer OTHER, SELFPAY ==
--- NOTE | ~2021-05-19 | XR_ITS ---
EXAMINATION: XR CHEST CLINICAL INFORMATION: Cough for 90 days COMPARISON: Chest radiograph earlier today as well as radiograph 04/08/2021 TECHNIQUE: 2 views of the chest were obtained. FINDINGS: No definite abnormality is noted involving the heart, lungs, mediastinum, bony thorax or soft tissues. Again seen is a mild area of increased density at the right lung base, improved when compared to 04/08/2021. XR/XR chest 2V IMPRESSION: No acute disease. Some possible minimal atelectasis at the right lung base.
[2021-05-19 06:37] VITALS: BP 125/70; PULSE 88; RESP 18; TEMP 36.8; O2SAT 92; BMI 33.9
--- NOTE | 2021-05-19 06:47 | ED_ITS ---
HPI - Psych General Chief Complaint: Psychiatric Symptoms Stated Complaint: crisis SI Time Seen by Provider: 05/19/21 06:46 Source: patient Mode of arrival: EMS Limitations: no limitations History of Present Illness HPI Narrative: Increased depression and suicidal ideation for 2 weeks. Denies auditory or visual hallucinations MD complaint: suicidal ideation Onset (ago): week(s) Duration: constant History of same: Yes Relieving factors: none Associated psychiatric symptoms: depression, suicidal ideation and racing thoughts Associated symptoms: denies other symptoms Related Data Previous Rx's Medication Instructions Recorded Spiriva Respimat 2 puff PO DAILY 30 Days #4 g 04/28/21 albuterol sulfate 2 puff INHALATION QID PRN 30 Days 04/28/21 #1 g chlorpromazine 12.5 mg PO Q4H PRN 30 Days #30 tab 04/28/21 cholecalciferol (vitamin D3) 25 mcg PO DAILY 30 Days #30 tab 04/28/21 docusate sodium 100 mg PO BID PRN 30 Days #60 cap 04/28/21 ferrous sulfate 324 mg PO DAILY 30 Days #30 tab 04/28/21 fluticasone propion-salmeterol 1 inh INHALATION BID 30 Days #1 ea 04/28/21 lithium carbonate 600 mg PO BID 30 Days #120 tab 04/28/21 naloxone [Narcan] 4 mg INTRANASAL Q2M PRN 1 Days #2 04/28/21 ea omeprazole 20 mg PO DAILY@0630 30 Days #30 cap 04/28/21 prazosin 1 mg PO BEDTIME 30 Days #30 cap 04/28/21 sertraline 75 mg PO DAILY 30 Days #45 tab 04/28/21 trazodone 150 mg PO BEDTIME 30 Days #90 tab 04/28/21 valacyclovir [Valtrex] 1,000 mg PO BID 30 Days #60 tab 04/28/21 Allergies Allergy/AdvReac Type Severity Reaction Status Date / Time aspirin [Aspirin] Allergy Severe HIVES,THROAT Verified 04/19/21 22:14 SWELLS bee pollen [BEE STINGS] Allergy Severe ANAPHYLAXIS Verified 04/19/21 22:14 diphenhydramine Allergy Severe hives, Verified 04/19/21 22:14 [From BENADRYL ALLERGY] throat swells Penicillins [PCN] Allergy Severe HIVES Verified 04/19/21 22:14 THROAT SWELLS Sulfa (Sulfonamide Allergy Intermediate HIVES Verified 04/19/21 22:14 Antibiotics) [SULFA (SULFONAMIDE ANTIBIOTICS)] tramadol [TRAMADOL] Allergy Intermediate ITCHING Verified 04/19/21 22:14 latex [LATEX] Allergy Unknown UNKNOWN Verified 04/19/21 22:14 penicillin G Allergy Unknown Unknown Verified 04/19/21 22:14 levofloxacin [From Levaquin] Allergy Hives Verified 04/19/21 22:14 bee stings Allergy Unknown Unknown Uncoded 04/19/21 22:14 DairyCare Allergy Unknown Unknown Uncoded 04/19/21 22:14 sulfa drugs Allergy Unknown Unknown Uncoded 04/19/21 22:14 Review of Systems Constitutional: Constitutional: Reports no additional constitutional complaints Eyes: Eyes: Reports no additional eye complaints ENT: Denies dizziness Cardiovascular: Cardiovascular: Reports no additional cardiovascular complaints Respiratory: Respiratory: Reports as per HPI Gastrointestinal: Gastrointestinal: Reports no additional gastrointestinal complaints Genitourinary: Genitourinary: Reports no additional female genitourinary complaints Musculoskeletal: Musculoskeletal: Reports no additional musculoskeletal complaints Integumentary/Breasts: Skin/Breast: Denies rash Neurologic: Reports system reviewed and no additional complaints, except as documented, Denies dizziness and Denies Sensory deficit (Neuro) Psychiatric: Psychiatric: Denies anxiety PMFSH Past Medical History Medical History Asthma exacerbation in COPD Bipolar disorder Borderline personality disorder Borderline personality disorder COPD (chronic obstructive pulmonary disease) Depression Herpes Intermittent explosive disorder FABIOLA (obstructive sleep apnea) Post traumatic stress disorder (PTSD) PTSD (post-traumatic stress disorder) Tobacco use Surgical History History of ankle surgery History of appendectomy History of back surgery Hx of cholecystectomy Family History Family History Mother COPD (chronic obstructive pulmonary disease) Social History Social History Household Members: None Household Members Other:: Pt states she hangs out with a male friend and a female friend Housing: Homeless Do you presently have visiting nurse or other home services: No Alcohol intake: unknown Patient Tobacco Use Status: Current everyday Tobacco user Tobacco use type: Cigarette Cigarette Packs Per Day: 1.5 Cigarettes Per Day: 8 Years Smoked: 17 e-Cigarette/Vaping Use: Never Used Second Hand Smoke Exposure: Yes Use of substances other than those prescribed or required for medical reasons: Unknown Substance Use Type: Crack/Cocaine Advance Directives: Yes Advance Directives on File: Yes Advance Directives Date on File: 04/08/21 Healthcare Proxy: No Guardian: No Patient : No service: No Current occupational status: unemployed Sexual orientation: Did not discuss Physical Exam Vital Signs: Vital Signs: Last Vital Signs Temp 98.2 F 05/19/21 15:46 Pulse 80 05/19/21 15:46 Resp 20 05/19/21 15:46 BP 125/79 05/19/21 15:46 Pulse Ox 92 05/19/21 15:46 Body Mass Index 33.9 Const: Other: unkept Nutritional Appearance: obese Orientation/consciousness: oriented to person and patient oriented x3 Limitations: no limitations HENMT: Head: Yes normal to inspection Ears: external ears normal General nose exam: Normal external nose present Mouth: Normal oral and palatal mucosa present and oropharynx normal Throat: Yes posterior oropharynx normal Eyes: General: appearance normal, both eyes and all related structures Neck: Other: supple Neck: Yes normal visual inspection Chest: Chest palpation & inspection: normal inspection of the chest Resp: Auscultation: clear to auscultation bilaterally Cardio: Jugular venous distension: no JVD Rate: regular rate Rhythm: regular rhythm Heart sounds: S1 normal heart sound present and S2 normal heart sound present GI: Inspection: Yes normal to inspection Palpation (GI): Soft to palpation, nontender and No hepatosplenomegaly present Auscultation: normal bowel sounds : General: Yes no CVA tenderness Back/Spine/Pelvis: Back: no CVA tenderness Skin: General skin exam: no rashes or lesions noted Neuro: General: oriented to person and patient oriented x3 Cranial nerves: Yes CN's II-XII intact bilaterally Motor exam (neuro): 5/5 motor strength present throughout Sensory Exam: No Sensory deficit (Neuro) Extrem: General: Yes normal to inspection Psych: Appearance: grossly normal Course Reevaluation(s) Reevaluation #1: medically cleared awaiting psych admission Time: 16:46 [facility] - Psych Lab Data Result diagrams: 05/19/21 11:03 05/19/21 11:03 Labs: Lab Results 05/19/21 05/19/21 05/19/21 Range/Units 06:49 06:49 11:03 WBC 5.2 (4.8-10.8) X10*3/uL RBC 4.22 (4.20-5.50) X10*6/uL Hgb 12.6 (12.0-16.0) g/dl Hct 38.6 (37-47) % MCV 91.5 (80-98) fL MCH 29.9 (27.0-33.0) pg MCHC 32.6 (31.0-35.0) g/dl RDW 12.9 (11.0-16.0) % Plt Count 230 (160-400) X10*3/uL MPV 10.0 (9.4-12.3) fL Immature Gran % (Auto) 0.2 (0.0-0.4) % Neut % (Auto) 47.8 (45-73) % Lymph % (Auto) 41.7 H (20-40) % [place] % (Auto) 7.7 (2-11) % Eos % (Auto) 1.2 (0-4) % Baso % (Auto) 1.4 (0-2) % Lymph # (Auto) 2.2 (1.2-4.9) X10*3/uL [place] # (Auto) 0.4 (0.1-1.2) X10*3/uL Eos # (Auto) 0.1 (0.0-0.4) X10*3/uL Baso # (Auto) 0.1 (0.0-0.2) X10*3/uL Abs Immat Gran (auto) 0.01 (0.00-0.03) X10*3/uL Absolute Neuts (auto) 2.5 (2.0-8.3) X10*3/uL Absolute Nucleated RBC 0.000 (0.0-0.012) X10*3/uL Nucleated RBC % (auto) 0.0 (0.0-0.2) /100WBC Sodium (135-145) mmol/L Potassium (3.3-5.1) mmol/L Chloride (96-108) mmol/L Carbon Dioxide (22-29) mmol/L Anion Gap (12-20) BUN (9-16) mg/dL Creatinine (0.5-1.4) mg/dL Estim Creat Clear Calc Estimated GFR Random Glucose (60-115) mg/dL Calcium (8.4-10.2) mg/dL Total Bilirubin (0.0-1.0) mg/dL AST (5-31) U/L ALT (0-31) U/L Alkaline Phosphatase (39-117) U/L Total Protein (6.5-8.0) g/dL Albumin (3.5-5.0) g/dL Salicylates (15-30) mg/dL Urine Opiates Screen Not Detected (Not Detect) Acetaminophen (<30) mcg/mL Ur Barbiturates Screen Not Detected (Not Detect) Ur Phencyclidine Scrn Not Detected (Not Detect) Ur Amphetamines Screen Not Detected (Not Detect) U Benzodiazepines Scrn Not Detected (Not Detect) Urine Cocaine Screen Not Detected (Not Detect) U Marijuana (THC) Screen Not Detected (Not Detect) Ethyl Alcohol mg/dL COVID-19 (ENDY) Negative (Negative) COVID-19 Clin Com See Note 05/19/21 05/19/21 Range/Units 11:03 11:03 WBC (4.8-10.8) X10*3/uL RBC (4.20-5.50) X10*6/uL Hgb (12.0-16.0) g/dl Hct (37-47) % MCV (80-98) fL MCH (27.0-33.0) pg MCHC (31.0-35.0) g/dl RDW (11.0-16.0) % Plt Count (160-400) X10*3/uL MPV (9.4-12.3) fL Immature Gran % (Auto) (0.0-0.4) % Neut % (Auto) (45-73) % Lymph % (Auto) (20-40) % [place] % (Auto) (2-11) % Eos % (Auto) (0-4) % Baso % (Auto) (0-2) % Lymph # (Auto) (1.2-4.9) X10*3/uL [place] # (Auto) (0.1-1.2) X10*3/uL Eos # (Auto) (0.0-0.4) X10*3/uL Baso # (Auto) (0.0-0.2) X10*3/uL Abs Immat Gran (auto) (0.00-0.03) X10*3/uL Absolute Neuts (auto) (2.0-8.3) X10*3/uL Absolute Nucleated RBC (0.0-0.012) X10*3/uL Nucleated RBC % (auto) (0.0-0.2) /100WBC Sodium 140 (135-145) mmol/L Potassium 4.0 (3.3-5.1) mmol/L Chloride 106 (96-108) mmol/L Carbon Dioxide 25 (22-29) mmol/L Anion Gap 13 (12-20) BUN 11 (9-16) mg/dL Creatinine 0.68 (0.5-1.4) mg/dL Estim Creat Clear Calc 115.1 Estimated GFR > 60 Random Glucose 102 (60-115) mg/dL Calcium 9.0 (8.4-10.2) mg/dL Total Bilirubin 0.5 (0.0-1.0) mg/dL AST 13 (5-31) U/L ALT 16 (0-31) U/L Alkaline Phosphatase 79 (39-117) U/L Total Protein 5.9 L (6.5-8.0) g/dL Albumin 3.8 (3.5-5.0) g/dL Salicylates < 5.0 L (15-30) mg/dL Urine Opiates Screen (Not Detect) Acetaminophen < 1 (<30) mcg/mL Ur Barbiturates Screen (Not Detect) Ur Phencyclidine Scrn (Not Detect) Ur Amphetamines Screen (Not Detect) U Benzodiazepines Scrn (Not Detect) Urine Cocaine Screen (Not Detect) U Marijuana (THC) Screen (Not Detect) Ethyl Alcohol < 10 mg/dL COVID-19 (ENDY) (Negative) COVID-19 Clin Com Discharge Plan Discharge Clinical Impression: Suicidal ideation Bipolar disorder Qualifiers: Active/Remission status: currently active Current bipolar episode type: depressed Current episode severity: severe Psychotic features: without psychotic features Qualified Code(s): F31.4 - Bipolar disorder, current episode depressed, severe, without psychotic features Depression Qualifiers: Depression Type: major depressive disorder Major depression recurrence: rec urrent Active/Remission status: currently active Major depression episode severity: severe Psychotic features: without psychotic features Qualified Code(s): F33.2 - Major depressive disorder, recurrent severe without psychotic features Prescriptions: No Action trazodone 50 mg Tablet 150 mg PO BEDTIME 30 Days Qty: 90 RF: 0 chlorpromazine 25 mg Tablet 12.5 mg PO Q4H PRN (Reason: anxiety/agitation) 30 Days Qty: 30 RF: 0 valacyclovir [Valtrex] 1 gram Tablet 1,000 mg PO BID 30 Days Qty: 60 RF: 0 prazosin 1 mg Capsule 1 mg PO BEDTIME 30 Days Qty: 30 RF: 0 lithium carbonate 300 mg Tablet Extended Release 600 mg PO BID 30 Days Qty: 120 RF: 0 albuterol sulfate 90 mcg/actuation HFA aerosol inhaler 2 puff inhalation QID PRN (Reason: wheezing) 30 Days Qty: 1 RF: 1 sertraline 50 mg Tablet 75 mg PO DAILY 30 Days Qty: 45 RF: 0 cholecalciferol (vitamin D3) 25 mcg (1,000 unit) Tablet 25 mcg PO DAILY 30 Days Qty: 30 RF: 0 ferrous sulfate 324 mg (65 mg iron) Tablet,Delayed Release (Dr/Ec) 324 mg PO DAILY 30 Days Qty: 30 RF: 0 Spiriva Respimat 1.25 mcg/actuation mist 2 puff PO DAILY 30 Days Qty: 4 RF: 0 fluticasone propion-salmeterol 232-14 mcg/actuation aerosol powdr breath activated 1 inh inhalation BID 30 Days Qty: 1 RF: 0 docusate sodium 100 mg Capsule 100 mg PO BID PRN (Reason: constipation) 30 Days Qty: 60 RF: 0 omeprazole 20 mg Capsule,Delayed Release(Dr/Ec) 20 mg PO DAILY@0630 30 Days Qty: 30 RF: 0 Narcan 4 mg/actuation spray,non-aerosol 4 mg intranasal Q2M PRN (Reason: opioid overdose) 1 Days Qty: 2 RF: 0
[2021-05-19 07:15] LABS: COVID-19 Test Negative (Negative)
[2021-05-19 07:26] LABS: Amphetamine Screen Urine Not Detected (Not Detect); Barbiturates, Urine Not Detected (Not Detect); Benzodiazepines Screen Urine Not Detected (Not Detect); Cannabinoid Screen Urine Not Detected (Not Detect); Cocaine Screen Urine Not Detected (Not Detect); Opiate Screen Urine Not Detected (Not Detect); Phencyclidine Screen Urine Not Detected (Not Detect)
--- NOTE | 2021-05-19 10:16 | PC.NURSE ---
pt ambulatory - given water and coffee per request.
--- NOTE | 2021-05-19 10:26 | PC.NURSE ---
pt is difficult blood draw, unable to obtain sample, phlebotomy called for attempt.
[2021-05-19 11:13] LABS: MANUAL DIFF FLAG NO
[2021-05-19 11:18] LABS: Basophils Absolute Auto 0.1 X10*3/uL (0.0-0.2); Basophils Percent Auto 1.4 % (0-2); Eosinophils Absolute Auto 0.1 X10*3/uL (0.0-0.4); Eosinophils Percent Auto 1.2 % (0-4); Hematocrit 38.6 % (37-47); Hemoglobin 12.6 g/dl (12.0-16.0); Imm Gran Abs Auto 0.01 X10*3/uL (0.00-0.03); Imm Gran Pct Auto 0.2 % (0.0-0.4); Lymphocytes Absolute Auto 2.2 X10*3/uL (1.2-4.9); Lymphocytes Percent Auto 41.7 % (20-40); Mean Corpuscular HGB Conc 32.6 g/dl (31.0-35.0); Mean Corpuscular Hemoglobin 29.9 pg (27.0-33.0); Mean Corpuscular Volume 91.5 fL (80-98); Monocytes Absolute Auto 0.4 X10*3/uL (0.1-1.2); Monocytes Percent Auto 7.7 % (2-11); Neutrophils Absolute Auto 2.5 X10*3/uL (2.0-8.3); Neutrophils Percent Auto 47.8 % (45-73); Platelet Count 230 X10*3/uL (160-400); Red Blood Count 4.22 X10*6/uL (4.20-5.50); Red Cell Distribution Width 12.9 % (11.0-16.0); White Blood Count 5.2 X10*3/uL (4.8-10.8)
[2021-05-19 11:33] LABS: Ethanol < 10 mg/dL
[2021-05-19 11:37] LABS: Alanine Aminotransferase 16 U/L (0-31); Albumin Level 3.8 g/dL (3.5-5.0); Alkaline Phosphatase 79 U/L (39-117); Anion Gap 13 (12-20); Aspartate Amino Transferase 13 U/L (5-31); Bilirubin Total 0.5 mg/dL (0.0-1.0); Blood Urea Nitrogen 11 mg/dL (9-16); Carbon Dioxide 25 mmol/L (22-29); Chloride 106 mmol/L (96-108); Creatinine Clr Calc Pharmacy 115.1; Estimated Glomerular Filt Rate > 60; Glucose Random 102 mg/dL (60-115); Salicylate < 5.0 mg/dL (15-30); Sodium 140 mmol/L (135-145); Total Protein 5.9 g/dL (6.5-8.0)
[2021-05-19 11:45] LABS: Acetaminophen LAB < 1 mcg/mL (<30)
[2021-05-19 15:46] VITALS: BP 125/79; PULSE 80; RESP 20; TEMP 36.8; O2SAT 92
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
[2021-05-19 21:49] VITALS: BP 135/66; PULSE 87
[2021-05-19] MEDS: Prazosin HCL 1 MG CAPSULE PO (21:49)
[2021-05-19] MEDS: traZODone HCL 50 MG TABLET 150 MG PO (21:49)
[2021-05-20] MEDS: Lithium Carbonate 300 MG CAPSULE 600 MG PO ×2 (08:59→20:49)
[2021-05-20] MEDS: Nicotine 21 MG PATCH.TD24 TRANSDERMA (09:00)
[2021-05-20] MEDS: Albuterol Sulfate 90 MCG 8 GM INHALER 2 PUFF INHALE (10:06)
[2021-05-20] MEDS: LORazepam 1 MG TABLET PO (15:08)
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
[2021-05-20 18:00] VITALS: BP 160/66; PULSE 89; TEMP 36.4
[2021-05-20 20:48] VITALS: BP 110/66; PULSE 89
[2021-05-20] MEDS: Prazosin HCL 1 MG CAPSULE PO (20:48)
[2021-05-20] MEDS: traZODone HCL 50 MG TABLET 150 MG PO (20:49)
--- NOTE | 2021-05-21 | ECG_ITS ---
Test Reason : chest pain/ LT arm pain Blood Pressure : / mmHG Vent. Rate : 073 BPM Atrial Rate : 073 BPM P-R Int : 136 ms QRS Dur : 088 ms QT Int : 420 ms P-R-T Axes : 000 136 152 degrees QTc Int : 462 ms Suspect limb lead reversal, interpretation assumes no reversal Normal sinus rhythm Left posterior fascicular block ST & T wave abnormality, consider inferior ischemia Abnormal ECG No previous ECGs available Referred By: Nigel Farmer Electronically Signed By:VAIBHAV KILLIAN MD
[2021-05-21 06:00] VITALS: BP 111/56; PULSE 69; TEMP 36.6; O2SAT 90
[2021-05-21 07:00] VITALS: BMI 39.2
[2021-05-21] MEDS: Cholecalciferol (Vitamin D3) 25 MCG TABLET PO (08:09)
[2021-05-21] MEDS: Ferrous Sulfate 324 MG TABLET.DR PO (08:09)
[2021-05-21] MEDS: Lithium Carbonate 300 MG CAPSULE 600 MG PO ×2 (08:09→21:44)
[2021-05-21] MEDS: predniSONE 20 MG TABLET PO (08:10)
[2021-05-21] MEDS: Sertraline HCL 50 MG TABLET PO (08:10)
[2021-05-21] MEDS: Omeprazole 20 MG CAPSULE.DR PO (08:10)
[2021-05-21] MEDS: Nicotine 21 MG PATCH.TD24 TRANSDERMA (08:15)
[2021-05-21] MEDS: Fluticasone/Vilanterol 100/25 BLST.W.DEV 1 PUFF INHALE (08:15)
[2021-05-21 08:55] LABS: Cholesterol 182 mg/dL; HDL Cholesterol 47 mg/dL; LDL Cholesterol Calculated 109 mg/dl; Triglycerides 134 mg/dL
[2021-05-21 09:29] LABS: Folate 9.9 ng/mL (> or = 4.0); Vitamin B12 381 pg/mL (200-900)
[2021-05-21 09:33] LABS: Estimated Average Glucose 120 mg/dL; Hemoglobin A1C 150.2887 umol/L; Hemoglobin A1c % 5.8 %
[2021-05-21] MEDS: Nystatin Cream 15 GM TUBE 1 APPL TOPICAL ×2 (10:24→22:03)
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
[2021-05-21 18:00] VITALS: BP 128/58; PULSE 77; TEMP 36.4
--- NOTE | 2021-05-21 21:36 | PC.NURSE ---
Pt was in the kitchen at 2030 when she c/o of chest pain, describing it like a squeezing feeling. Pt denied N/V, dizzyness, did have a slight headache. Pt did say lt arm was sore. Dr. Farmer notified and ordered stat EKG and TRiponin. Pt tolerated EKG and lab. Pt went back into the kichen. Pt Bp during this incident started at 140/85,P77, O2sat 94, R 20, at 2130 last set of vitals were B/P 139/72, P66,O2 93, R 20. Pt reported pain was gone and she was doing her journaling. Awaiting orders from Dr. Farmer. Pt was not diapharetic during this episode.
[2021-05-21 21:43] VITALS: BP 139/72; PULSE 66
[2021-05-21] MEDS: traZODone HCL 50 MG TABLET 150 MG PO (21:43)
[2021-05-21] MEDS: Prazosin HCL 1 MG CAPSULE PO (21:43)
[2021-05-21 21:52] LABS: Troponin-I High Sensitivity < 3.5 ng/L (<3.5-17.0)
[2021-05-21] MEDS: LORazepam 1 MG TABLET PO (23:14)
[2021-05-21] MEDS: chlorproMAZINE HCl 25 MG TABLET 12.5 MG PO (23:14)
[2021-05-21] MEDS: hydrOXYzine HCL 25 MG TABLET PO (23:14)
[2021-05-22] MEDS: Cholecalciferol (Vitamin D3) 25 MCG TABLET PO (08:30)
[2021-05-22] MEDS: predniSONE 20 MG TABLET PO (08:42)
[2021-05-22] MEDS: Lithium Carbonate 300 MG CAPSULE 600 MG PO ×2 (08:42→21:05)
[2021-05-22] MEDS: Ferrous Sulfate 324 MG TABLET.DR PO (08:43)
[2021-05-22] MEDS: Omeprazole 20 MG CAPSULE.DR PO (08:43)
[2021-05-22] MEDS: Sertraline HCL 50 MG TABLET PO (08:44)
[2021-05-22] MEDS: Fluticasone/Vilanterol 100/25 BLST.W.DEV 1 PUFF INHALE (08:47)
[2021-05-22] MEDS: Nicotine 21 MG PATCH.TD24 TRANSDERMA (09:14)
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
[2021-05-22 18:00] VITALS: BP 136/65; PULSE 77; TEMP 36.2
[2021-05-22 21:04] VITALS: BP 136/65; PULSE 77
[2021-05-22] MEDS: Prazosin HCL 1 MG CAPSULE PO (21:04)
[2021-05-22] MEDS: traZODone HCL 50 MG TABLET 150 MG PO (21:06)
[2021-05-22] MEDS: Nystatin Cream 15 GM TUBE 1 APPL TOPICAL (21:06)
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
[2021-05-23] MEDS: Omeprazole 20 MG CAPSULE.DR PO (06:16)
[2021-05-23 06:23] VITALS: BP 108/56; PULSE 74; RESP 18; TEMP 35.6; O2SAT 94
[2021-05-23] MEDS: LORazepam 1 MG TABLET PO (08:19)
[2021-05-23] MEDS: Cholecalciferol (Vitamin D3) 25 MCG TABLET PO (08:19)
[2021-05-23] MEDS: predniSONE 20 MG TABLET PO (08:19)
[2021-05-23] MEDS: Sertraline HCL 50 MG TABLET PO (08:19)
[2021-05-23] MEDS: Lithium Carbonate 300 MG CAPSULE 600 MG PO ×2 (08:19→21:45)
[2021-05-23] MEDS: Ferrous Sulfate 324 MG TABLET.DR PO (08:19)
[2021-05-23] MEDS: Fluticasone/Vilanterol 100/25 BLST.W.DEV 1 PUFF INHALE (08:19)
[2021-05-23] MEDS: Nicotine 21 MG PATCH.TD24 TRANSDERMA (08:22)
[2021-05-23 21:50] VITALS: BP 120/66; PULSE 77; TEMP 36.6
[2021-05-23] MEDS: Prazosin HCL 1 MG CAPSULE PO (21:50)
[2021-05-23] MEDS: traZODone HCL 50 MG TABLET 150 MG PO (21:51)
[2021-05-24 06:00] VITALS: BP 137/63; PULSE 74; RESP 16; TEMP 36.3; O2SAT 97
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
[2021-05-24] MEDS: Sertraline HCL 50 MG TABLET PO (07:57)
[2021-05-24] MEDS: Ferrous Sulfate 324 MG TABLET.DR PO (07:57)
[2021-05-24] MEDS: predniSONE 20 MG TABLET PO (07:57)
[2021-05-24] MEDS: Lithium Carbonate 300 MG CAPSULE 600 MG PO ×2 (07:57→21:34)
[2021-05-24] MEDS: Cholecalciferol (Vitamin D3) 25 MCG TABLET PO (07:57)
[2021-05-24] MEDS: Fluticasone/Vilanterol 100/25 BLST.W.DEV 1 PUFF INHALE (07:57)
[2021-05-24] MEDS: Omeprazole 20 MG CAPSULE.DR PO (07:58)
[2021-05-24] MEDS: Nicotine 21 MG PATCH.TD24 TRANSDERMA (07:58)
[2021-05-24 21:15] VITALS: BP 129/72; PULSE 76; TEMP 36.8
[2021-05-24 21:34] VITALS: BP 130/77; PULSE 83
[2021-05-24] MEDS: Prazosin HCL 1 MG CAPSULE PO (21:34)
[2021-05-24] MEDS: traZODone HCL 50 MG TABLET 150 MG PO (21:34)
[2021-05-25 06:00] VITALS: BP 123/59; PULSE 97; TEMP 36.5; O2SAT 94
[2021-05-25] MEDS: Omeprazole 20 MG CAPSULE.DR PO (06:20)
[2021-05-25] MEDS: Lithium Carbonate 300 MG CAPSULE 600 MG PO (08:48)
[2021-05-25] MEDS: Nicotine 21 MG PATCH.TD24 TRANSDERMA (08:48)
[2021-05-25] MEDS: Fluticasone/Vilanterol 100/25 BLST.W.DEV 1 PUFF INHALE (08:48)
[2021-05-25] MEDS: Cholecalciferol (Vitamin D3) 25 MCG TABLET PO (08:49)
[2021-05-25] MEDS: Sertraline HCL 50 MG TABLET PO (08:49)
[2021-05-25] MEDS: predniSONE 20 MG TABLET PO (08:49)
[2021-05-25] MEDS: Ferrous Sulfate 324 MG TABLET.DR PO (08:49)
[2021-05-25 08:54] LABS: Lithium 0.66 mmol/L (0.60-1.20)
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
== END 2021-05-25 14:26 | disposition home or self-care (01) | DRG 753 ==
LOC: HO.ED 19:48 → HO.PM5 19:58
PROVIDERS: Hospitalist; Student in an Organized Health Care Education/Training Program; Admitting Provider Psychiatry & Neurology Psychiatry; Emergency Provider Emergency Medicine; Visit Provider Clinical Nurse Specialist Psychiatric/Mental Health, Adult
DX: F31.9 Bipolar disorder, unspecified (principal); F43.10 Post-traumatic stress disorder, unspecified; R45.851 Suicidal ideations; F17.210 Nicotine dependence, cigarettes, uncomplicated; Z71.6 Tobacco abuse counseling; Z20.822 Contact with and (suspected) exposure to COVID-19; Z88.0 Allergy status to penicillin; Z88.2 Allergy status to sulfonamides; Z88.6 Allergy status to analgesic agent; Z79.51 Long term (current) use of inhaled steroids; Z79.52 Long term (current) use of systemic steroids; Z79.899 Other long term (current) drug therapy
CPT/HCPCS: 36415; 71046; 80053; 80061; 80143; 80178; 80179; 80307; 82077; 82607; 82746; 83036; 84484; 85025; 87071; 87635; 93005; 94660; 99285

== ENCOUNTER 2021-06-05 21:12 | Inpatient (IN) | payer OTHER, MEDICAID, SELFPAY ==
--- NOTE | 2021-06-05 21:24 | ED_ITS ---
HPI - Psych General Chief Complaint: Psychiatric Symptoms Stated Complaint: crisis Source: patient, EMS and police Mode of arrival: EMS Limitations: altered mental status History of Present Illness HPI Narrative: 51-year-old female presents via EMS and police for paranoid behavior after smoking crack cocaine. Patient is not answering any questions at this time MD complaint: altered mental status and substance abuse Onset (ago): unknown Duration: constant History of same: Yes Exacerbating factors: drug use Context: recent drug abuse Associated psychiatric symptoms: other (Paranoia) Associated symptoms: denies other symptoms Related Data Previous Rx's Medication Instructions Recorded albuterol sulfate 90 mcg/actuation 2 puff INHALATION QID PRN 30 Days 05/25/21 aerosol inhaler #1 g chlorpromazine 25 mg tablet 12.5 mg PO Q4H PRN 30 Days #30 tab 05/25/21 cholecalciferol (vitamin D3) 25 25 mcg PO DAILY 30 Days #30 tab 05/25/21 mcg (1,000 unit) tablet docusate sodium 100 mg capsule 100 mg PO BID PRN 30 Days #60 cap 05/25/21 ferrous sulfate 324 mg (65 mg 324 mg PO DAILY 30 Days #30 tab 05/25/21 iron) tablet,delayed release fluticasone 232 mcg-salmeterol 14 1 inh INHALATION BID 30 Days #1 ea 05/25/21 mcg/actuation breath activated powdr hydroxyzine HCl 25 mg tablet 25 mg PO BEDTIME PRN #30 tab 05/25/21 lithium carbonate 300 mg 600 mg PO BID 30 Days #120 tab 05/25/21 tablet,extended release naloxone 4 mg/actuation nasal 4 mg INTRANASAL Q2M PRN 1 Days #2 05/25/21 spray (Narcan) ea nystatin 100,000 unit/gram topical 1 appl TOPICAL BID #1 g 05/25/21 cream omeprazole 20 mg capsule,delayed 20 mg PO DAILY@0630 30 Days #30 cap 05/25/21 release prazosin 1 mg capsule 1 mg PO BEDTIME 30 Days #30 cap 05/25/21 prednisone 20 mg tablet 20 mg PO DAILY #7 tab 05/25/21 sertraline 50 mg tablet 50 mg PO DAILY #30 tab 05/25/21 tiotropium bromide 1.25 2 puff PO DAILY 30 Days #4 g 05/25/21 mcg/actuation mist for inhalation (Spiriva Respimat) trazodone 50 mg tablet 150 mg PO BEDTIME 30 Days #90 tab 05/25/21 valacyclovir 1 gram tablet 1,000 mg PO BID 30 Days #60 tab 05/25/21 (Valtrex) Allergies Allergy/AdvReac Type Severity Reaction Status Date / Time aspirin [Aspirin] Allergy Severe HIVES,THROAT Verified 06/05/21 21:34 SWELLS bee pollen [BEE STINGS] Allergy Severe ANAPHYLAXIS Verified 06/05/21 21:34 diphenhydramine Allergy Severe hives, Verified 06/05/21 21:34 [From BENADRYL ALLERGY] throat swells Penicillins [PCN] Allergy Severe HIVES Verified 06/05/21 21:34 THROAT SWELLS Sulfa (Sulfonamide Allergy Intermediate HIVES Verified 06/05/21 21:34 Antibiotics) [SULFA (SULFONAMIDE ANTIBIOTICS)] tramadol [TRAMADOL] Allergy Intermediate ITCHING Verified 06/05/21 21:34 latex [LATEX] Allergy Unknown UNKNOWN Verified 06/05/21 21:34 penicillin G Allergy Unknown Unknown Verified 06/05/21 21:34 levofloxacin [From Levaquin] Allergy Hives Verified 06/05/21 21:34 bee stings Allergy Unknown Unknown Uncoded 06/05/21 21:34 DairyCare Allergy Unknown Unknown Uncoded 06/05/21 21:34 sulfa drugs Allergy Unknown Unknown Uncoded 06/05/21 21:34 Review of Systems Review of Systems: Yes Unobtainable due to mental status PMFSH Past Medical History Attestation statement: The following information was validated with the patient. Source: old records reviewed Medical History Asthma exacerbation in COPD Bipolar disorder Bipolar I disorder Borderline personality disorder Borderline personality disorder COPD (chronic obstructive pulmonary disease) Depression Drug abuse Herpes Intermittent explosive disorder FABIOLA (obstructive sleep apnea) Post traumatic stress disorder (PTSD) PTSD (post-traumatic stress disorder) PTSD (post-traumatic stress disorder) Tobacco use Surgical History History of ankle surgery History of appendectomy History of back surgery Hx of cholecystectomy Family History Family History Mother COPD (chronic obstructive pulmonary disease) Social History Social History Household Members: None Household Members Other:: Pt states she hangs out with a male friend and a female friend Housing: Homeless Do you presently have visiting nurse or other home services: No Alcohol intake: unknown Patient Tobacco Use Status: Current everyday Tobacco user Tobacco use type: Cigarette Cigarette Packs Per Day: 1 Cigarettes Per Day: 20.0 Years Smoked: 17 e-Cigarette/Vaping Use: Never Used Second Hand Smoke Exposure: Yes Substance Use Type: Crack/Cocaine Advance Directives: Yes Advance Directives on File: Yes Advance Directives Date on File: 04/08/21 Patient : No service: No Current occupational status: unemployed Sexual orientation: Straight/Heterosexual Physical Exam Vital Signs: Vital Signs: Last Vital Signs Temp 97.4 F 06/05/21 22:25 Pulse 90 06/05/21 22:25 Resp 17 06/05/21 22:25 BP 120/77 06/05/21 22:25 Pulse Ox 93 06/05/21 22:25 Body Mass Index 30.4 Appearance: Alert. Oriented to self. Under the influence of crack cocaine. Eyes: Pupils equal, round and reactive to light. ENT: Pharynx normal. Neck: Normal inspection. Neck supple. CVS: Normal heart rate and rhythm. Pulses normal. Respiratory: No respiratory distress. Breath sounds normal. Abdomen: Soft and nontender. Skin: Skin warm and dry. Normal skin color. Normal skin turgor. Extremities: No lower extremity edema. Neuro: No motor deficit. No sensory deficit. Cranial nerves 2-12 intact. Course Course Course Narrative: 51-year-old female well known to this facility presents to psychiatric department via EMS and police for paranoia and crack cocaine use. Patient is not answering any questions, chewing on her mask, and crying inte rmittently. Plan of care is for CBC, Chem 7, urinalysis, JOE, and consult crisis. Physician observation started at this time. MDM - Psych Differential Diagnosis Differential diagnosis: Likely acute psychosis, bipolar disorder, depression, drug-induced psychotic disorder, acute anxiety and substance abuse Medical Records Attestation: I reviewed the patient's medical records. Lab Data Attestation: I reviewed the patient's lab results. Result diagrams: 06/05/21 23:44 06/05/21 23:44 Labs: Lab Results 06/05/21 06/05/21 06/05/21 Range/Units 22:29 22:29 22:29 WBC (4.8-10.8) X10*3/uL RBC (4.20-5.50) X10*6/uL Hgb (12.0-16.0) g/dl Hct (37-47) % MCV (80-98) fL MCH (27.0-33.0) pg MCHC (31.0-35.0) g/dl RDW (11.0-16.0) % Plt Count (160-400) X10*3/uL MPV (9.4-12.3) fL Immature Gran % (Auto) (0.0-0.4) % Neut % (Auto) (45-73) % Lymph % (Auto) (20-40) % [place] % (Auto) (2-11) % Eos % (Auto) (0-4) % Baso % (Auto) (0-2) % Lymph # (Auto) (1.2-4.9) X10*3/uL [place] # (Auto) (0.1-1.2) X10*3/uL Eos # (Auto) (0.0-0.4) X10*3/uL Baso # (Auto) (0.0-0.2) X10*3/uL Abs Immat Gran (auto) (0.00-0.03) X10*3/uL Absolute Neuts (auto) (2.0-8.3) X10*3/uL Absolute Nucleated RBC (0.0-0.012) X10*3/uL Nucleated RBC % (auto) (0.0-0.2) /100WBC Sodium (135-145) mmol/L Potassium (3.3-5.1) mmol/L Chloride (96-108) mmol/L Carbon Dioxide (22-29) mmol/L Anion Gap (12-20) BUN (9-16) mg/dL Creatinine (0.5-1.4) mg/dL Estim Creat Clear Calc Estimated GFR Random Glucose (60-115) mg/dL Calcium (8.4-10.2) mg/dL Total Bilirubin (0.0-1.0) mg/dL AST (5-31) U/L ALT (0-31) U/L Alkaline Phosphatase (39-117) U/L Total Protein (6.5-8.0) g/dL Albumin (3.5-5.0) g/dL Urine Test NEGATIVE (NEGATIVE) Urine Opiates Screen Not Detected (Not Detect) Ur Barbiturates Screen Not Detected (Not Detect) Ur Phencyclidine Scrn Not Detected (Not Detect) Ur Amphetamines Screen Not Detected (Not Detect) U Benzodiazepines Scrn Not Detected (Not Detect) Urine Cocaine Screen POSITIVE H (Not Detect) U Marijuana (THC) Screen Not Detected (Not Detect) Ethyl Alcohol mg/dL Coronavirus (PCR) NEGATIVE (Negative) Influenza Type A (PCR) NEGATIVE (Negative) Influenza Type B (PCR) NEGATIVE (Negative) RSV RNA Qual (PCR) NEGATIVE (Negative) 06/05/21 06/05/21 06/05/21 Range/Units 23:44 23:44 23:44 WBC 8.2 (4.8-10.8) X10*3/uL RBC 4.27 (4.20-5.50) X10*6/uL Hgb 12.7 (12.0-16.0) g/dl Hct 39.5 (37-47) % MCV 92.5 (80-98) fL MCH 29.7 (27.0-33.0) pg MCHC 32.2 (31.0-35.0) g/dl RDW 13.3 (11.0-16.0) % Plt Count 286 (160-400) X10*3/uL MPV 10.0 (9.4-12.3) fL Immature Gran % (Auto) 0.2 (0.0-0.4) % Neut % (Auto) 58.7 (45-73) % Lymph % (Auto) 32.6 (20-40) % [place] % (Auto) 7.2 (2-11) % Eos % (Auto) 0.7 (0-4) % Baso % (Auto) 0.6 (0-2) % Lymph # (Auto) 2.7 (1.2-4.9) X10*3/uL [place] # (Auto) 0.6 (0.1-1.2) X10*3/uL Eos # (Auto) 0.1 (0.0-0.4) X10*3/uL Baso # (Auto) 0.1 (0.0-0.2) X10*3/uL Abs Immat Gran (auto) 0.02 (0.00-0.03) X10*3/uL Absolute Neuts (auto) 4.8 (2.0-8.3) X10*3/uL Absolute Nucleated RBC 0.000 (0.0-0.012) X10*3/uL Nucleated RBC % (auto) 0.0 (0.0-0.2) /100WBC Sodium 141 (135-145) mmol/L Potassium 3.6 (3.3-5.1) mmol/L Chloride 105 (96-108) mmol/L Carbon Dioxide 27 (22-29) mmol/L Anion Gap 13 (12-20) BUN 13 (9-16) mg/dL Creatinine 0.76 (0.5-1.4) mg/dL Estim Creat Clear Calc 104.3 Estimated GFR > 60 Random Glucose 130 H (60-115) mg/dL Calcium 9.0 (8.4-10.2) mg/dL Total Bilirubin 0.2 (0.0-1.0) mg/dL AST 11 (5-31) U/L ALT 15 (0-31) U/L Alkaline Phosphatase 74 (39-117) U/L Total Protein 6.1 L (6.5-8.0) g/dL Albumin 4.0 (3.5-5.0) g/dL Urine Test (NEGATIVE) Urine Opiates Screen (Not Detect) Ur Barbiturates Screen (Not Detect) Ur Phencyclidine Scrn (Not Detect) Ur Amphetamines Screen (Not Detect) U Benzodiazepines Scrn (Not Detect) Urine Cocaine Screen (Not Detect) U Marijuana (THC) Screen (Not Detect) Ethyl Alcohol < 10 mg/dL Coronavirus (PCR) (Negative) Influenza Type A (PCR) (Negative) Influenza Type B (PCR) (Negative) RSV RNA Qual (PCR) (Negative) ECG Data Attestation: I personally reviewed and interpreted this ECG as follows: ECG interpretation date: 06/05/21 ECG interpretation time: 22:02 Prior ECG tracings: available for review Interpretation: Vent. Rate : 082 BPM ? ? Atrial Rate : 082 BPM ?? P-R Int : 134 ms? QRS Dur : 086 ms ? ? QT Int : 404 ms ? ? ? P-R-T Axes : 020 027 023 degrees ?? QTc Int : 472 ms ? Normal sinus rhythm Normal ECG When compared with ECG of 21-MAY-2021 21:00, Left posterior fascicular block is no longer Present Non-specific change in ST segment in Lateral leads Discharge Plan Discharge Clinical Impression: Bipolar I disorder, Acute psychosis Bipolar disorder Qualifiers: Active/Remission status: currently active Current bipolar episode type: manic Current episode severity: unspecified Qualified Code(s): F31.10 - Bipolar disorder, current episode manic without psychotic features, unspecified Prescriptions: No Action prednisone 20 mg Tablet 20 mg PO DAILY Qty: 7 RF: 0 hydroxyzine HCl 25 mg Tablet 25 mg PO BEDTIME PRN (Reason: Anxiety) Qty: 30 RF: 0 sertraline 50 mg Tablet 50 mg PO DAILY Qty: 30 RF: 0 nystatin 100,000 unit/gram Cream 1 appl topical BID Qty: 1 RF: 1 trazodone 50 mg Tablet 150 mg PO BEDTIME 30 Days Qty: 90 RF: 0 valacyclovir [Valtrex] 1 gram Tablet 1,000 mg PO BID 30 Days Qty: 60 RF: 0 prazosin 1 mg Capsule 1 mg PO BEDTIME 30 Days Qty: 30 RF: 0 lithium carbonate 300 mg Tablet Extended Release 600 mg PO BID 30 Days Qty: 120 RF: 0 chlorpromazine 25 mg Tablet 12.5 mg PO Q4H PRN (Reason: anxiety/agitation) 30 Days Qty: 30 RF: 0 docusate sodium 100 mg Capsule 100 mg PO BID PRN (Reason: constipation) 30 Days Qty: 60 RF: 0 omeprazole 20 mg Capsule,Delayed Release(Dr/Ec) 20 mg PO DAILY@0630 30 Days Qty: 30 RF: 0 albuterol sulfate 90 mcg/actuation HFA aerosol inhaler 2 puff inhalation QID PRN (Reason: wheezing) 30 Days Qty: 1 RF: 0 cholecalciferol (vitamin D3) 25 mcg (1,000 unit) Tablet 25 mcg PO DAILY 30 Days Qty: 30 RF: 0 ferrous sulfate 324 mg (65 mg iron) Tablet,Delayed Release (Dr/Ec) 324 mg PO DAILY 30 Days Qty: 30 RF: 0 Spiriva Respimat 1.25 mcg/actuation mist 2 puff PO DAILY 30 Days Qty: 4 RF: 0 Narcan 4 mg/actuation spray,non-aerosol 4 mg intranasal Q2M PRN (Reason: opioid overdose) 1 Days Qty: 2 RF: 0 fluticasone propion-salmeterol 232-14 mcg/actuation aerosol powdr breath activated 1 inh inhalation BID 30 Days Qty: 1 RF: 0
[2021-06-05 21:27] VITALS: RESP 20; BMI 30.4
[2021-06-05] MEDS: LORazepam 1 MG TABLET 2 MG PO (21:51)
--- NOTE | 2021-06-05 22:02 | ECG_ITS ---
Test Reason : MEDICAL CLEARANCE Blood Pressure : / mmHG Vent. Rate : 082 BPM Atrial Rate : 082 BPM P-R Int : 134 ms QRS Dur : 086 ms QT Int : 404 ms P-R-T Axes : 020 027 023 degrees QTc Int : 472 ms Normal sinus rhythm Normal ECG When compared with ECG of 21-MAY-2021 21:00, Left posterior fascicular block is no longer Present Non-specific change in ST segment in Lateral leads Referred By: Charo Borjas Electronically Signed By:Deangelo Gutierres
[2021-06-05 22:25] VITALS: BP 120/77; PULSE 90; RESP 17; TEMP 36.3; O2SAT 93
[2021-06-05 22:38] LABS: UPreg QC Valid YES; Urine Pregnancy NEGATIVE (NEGATIVE)
[2021-06-05 23:01] LABS: Amphetamine Screen Urine Not Detected (Not Detect); Barbiturates, Urine Not Detected (Not Detect); Benzodiazepines Screen Urine Not Detected (Not Detect); Cannabinoid Screen Urine Not Detected (Not Detect); Cocaine Screen Urine POSITIVE (Not Detect); Opiate Screen Urine Not Detected (Not Detect); Phencyclidine Screen Urine Not Detected (Not Detect)
[2021-06-05 23:46] LABS: Influenza A PCR NEGATIVE (Negative); Influenza B PCR NEGATIVE (Negative); Resp Syncy Virus RNA Qual PCR NEGATIVE (Negative); SARS COV2 PCR INHOUSE NEGATIVE (Negative)
[2021-06-05 23:59] LABS: MANUAL DIFF FLAG NO
[2021-06-06] LABS: Basophils Absolute Auto 0.1 X10*3/uL (0.0-0.2); Basophils Percent Auto 0.6 % (0-2); Eosinophils Absolute Auto 0.1 X10*3/uL (0.0-0.4); Eosinophils Percent Auto 0.7 % (0-4); Hematocrit 39.5 % (37-47); Hemoglobin 12.7 g/dl (12.0-16.0); Imm Gran Abs Auto 0.02 X10*3/uL (0.00-0.03); Imm Gran Pct Auto 0.2 % (0.0-0.4); Lymphocytes Absolute Auto 2.7 X10*3/uL (1.2-4.9); Lymphocytes Percent Auto 32.6 % (20-40); Mean Corpuscular HGB Conc 32.2 g/dl (31.0-35.0); Mean Corpuscular Hemoglobin 29.7 pg (27.0-33.0); Mean Corpuscular Volume 92.5 fL (80-98); Monocytes Absolute Auto 0.6 X10*3/uL (0.1-1.2); Monocytes Percent Auto 7.2 % (2-11); Neutrophils Absolute Auto 4.8 X10*3/uL (2.0-8.3); Neutrophils Percent Auto 58.7 % (45-73); Platelet Count 286 X10*3/uL (160-400); Red Blood Count 4.27 X10*6/uL (4.20-5.50); Red Cell Distribution Width 13.3 % (11.0-16.0); White Blood Count 8.2 X10*3/uL (4.8-10.8)
[2021-06-06 00:19] LABS: Ethanol < 10 mg/dL
[2021-06-06 00:23] LABS: Alanine Aminotransferase 15 U/L (0-31); Alkaline Phosphatase 74 U/L (39-117); Anion Gap 13 (12-20); Aspartate Amino Transferase 11 U/L (5-31); Bilirubin Total 0.2 mg/dL (0.0-1.0); Blood Urea Nitrogen 13 mg/dL (9-16); Carbon Dioxide 27 mmol/L (22-29); Chloride 105 mmol/L (96-108); Creatinine Clr Calc Pharmacy 104.3; Estimated Glomerular Filt Rate > 60; Glucose Random 130 mg/dL (60-115); Potassium 3.6 mmol/L (3.3-5.1); Sodium 141 mmol/L (135-145); Total Protein 6.1 g/dL (6.5-8.0)
--- NOTE | 2021-06-06 02:29 | PC.NURSE ---
faxed to [facility], [place]. unable to confirm rec due to the room is locked that they check to see if the fax came in.
--- NOTE | 2021-06-06 09:52 | PC.NURSE ---
bhn in to bedside for eval
[2021-06-06 11:29] VITALS: RESP 18
[2021-06-06] MEDS: LORazepam 0.5 MG TABLET 2 MG PO (14:14)
[2021-06-06 18:11] VITALS: BP 121/61; PULSE 80; TEMP 36.3; O2SAT 94
--- NOTE | 2021-06-06 23:34 | PC.NURSE ---
Patient resting comfortably in bed aware of plan of care to go inpatient.
[2021-06-07 00:34] VITALS: BP 119/76; PULSE 84; RESP 18; TEMP 36; O2SAT 94
[2021-06-07] MEDS: LORazepam 0.5 MG TABLET 2 MG PO ×2 (07:27→17:42)
[2021-06-07 09:13] VITALS: BP 132/75; PULSE 88; RESP 15; TEMP 36.8; O2SAT 93
[2021-06-07] MEDS: Fluticasone/Vilanterol 200/25 BLST.W.DEV 1 PUFF INHALE (11:25)
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
[2021-06-08 03:00] VITALS: BP 125/80; PULSE 74; RESP 17; TEMP 36.7; O2SAT 96
[2021-06-08 06:18] LABS: Lithium < 0.10 mmol/L (0.60-1.20)
[2021-06-08] MEDS: Omeprazole 20 MG CAPSULE.DR PO (06:20)
--- NOTE | 2021-06-08 06:24 | PC.NURSE ---
Patient slept through the night, no distress observed/reported, behavior appropriate with tendency to escalate, med rec completed, med compliant, VSS, appetite good, disposition is section 12 inpatient bed search, will continue to monitor.
--- NOTE | 2021-06-08 07:23 | PC.NURSE ---
patient had remained asleep at the beginning of shift today appears in no distress, up to use rest room and getting snacks
[2021-06-08] MEDS: Sertraline HCL 50 MG TABLET PO (08:32)
[2021-06-08] MEDS: Cholecalciferol (Vitamin D3) 25 MCG TABLET PO (08:33)
[2021-06-08] MEDS: Lithium Carbonate ER 300 MG TABLET.ER 600 MG PO ×2 (08:33→21:04)
[2021-06-08] MEDS: Ferrous Sulfate 324 MG TABLET.DR PO (08:34)
[2021-06-08] MEDS: Fluticasone/Vilanterol 200/25 BLST.W.DEV 1 PUFF INHALE (08:34)
[2021-06-08 08:35] VITALS: BP 120/71; PULSE 82; RESP 15; TEMP 36.6; O2SAT 95
[2021-06-08] MEDS: chlorproMAZINE HCl 25 MG TABLET 12.5 MG PO (13:36)
[2021-06-08 16:25] VITALS: BP 123/70; PULSE 90; RESP 18; TEMP 36; O2SAT 96
[2021-06-08] MEDS: LORazepam 0.5 MG TABLET 2 MG PO (17:55)
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
[2021-06-08 21:04] VITALS: BP 131/80; PULSE 81
[2021-06-08] MEDS: Prazosin HCL 1 MG CAPSULE PO (21:04)
[2021-06-08] MEDS: traZODone HCL 50 MG TABLET 150 MG PO (21:04)
[2021-06-09 06:11] VITALS: BP 109/69; PULSE 90; RESP 18; TEMP 36.2; O2SAT 95
[2021-06-09 08:33] LABS: Estimated Average Glucose 117 mg/dL; Hemoglobin A1c % 5.7 %
[2021-06-09 08:52] LABS: Cholesterol 201 mg/dL; HDL Cholesterol 48 mg/dL; LDL Cholesterol Calculated 119 mg/dl; Triglycerides 170 mg/dL
[2021-06-09 09:08] LABS: Lithium 0.42 mmol/L (0.60-1.20)
[2021-06-09 09:11] LABS: Thyroid Stimulating Hormone 1.02 uIU/mL (0.32-4.0)
[2021-06-09 09:40] LABS: Folate 7.6 ng/mL (> or = 4.0); Vitamin B12 379 pg/mL (200-900)
[2021-06-09] MEDS: Ferrous Sulfate 324 MG TABLET.DR PO (09:56)
[2021-06-09] MEDS: Cholecalciferol (Vitamin D3) 25 MCG TABLET PO (09:56)
[2021-06-09] MEDS: Lithium Carbonate ER 300 MG TABLET.ER 600 MG PO ×2 (09:56→21:50)
[2021-06-09] MEDS: Omeprazole 20 MG CAPSULE.DR PO (09:56)
[2021-06-09] MEDS: Sertraline HCL 50 MG TABLET PO (09:56)
[2021-06-09] MEDS: Fluticasone/Vilanterol 200/25 BLST.W.DEV 1 PUFF INHALE (09:57)
[2021-06-09] MEDS: LORazepam 0.5 MG TABLET 2 MG PO (13:18)
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
[2021-06-09] MEDS: traZODone HCL 50 MG TABLET 150 MG PO (21:50)
[2021-06-09] MEDS: Prazosin HCL 1 MG CAPSULE PO (21:50)
[2021-06-09] MEDS: Acetaminophen 325 MG TABLET 650 MG PO (21:50)
[2021-06-09 23:10] VITALS: BP 129/78; PULSE 73; TEMP 36.1
[2021-06-10 06:00] VITALS: BP 124/59; PULSE 73; TEMP 36.3
[2021-06-10] MEDS: Fluticasone/Vilanterol 200/25 BLST.W.DEV 1 PUFF INHALE (08:33)
[2021-06-10] MEDS: Sertraline HCL 50 MG TABLET PO (08:34)
[2021-06-10] MEDS: Ferrous Sulfate 324 MG TABLET.DR PO (08:34)
[2021-06-10] MEDS: Cholecalciferol (Vitamin D3) 25 MCG TABLET PO (08:34)
[2021-06-10] MEDS: Lithium Carbonate ER 300 MG TABLET.ER 600 MG PO ×2 (08:34→22:03)
[2021-06-10] MEDS: Omeprazole 20 MG CAPSULE.DR PO (08:34)
[2021-06-10 09:15] LABS: Cholesterol 202 mg/dL; HDL Cholesterol 53 mg/dL; LDL Cholesterol Calculated 124 mg/dl; Triglycerides 125 mg/dL
[2021-06-10] MEDS: Magnesium Citrate 300 ML SOLUTION PO (09:41)
--- NOTE | 2021-06-10 17:11 | P.PNPSI_ITS ---
Subjective Subjective Date of Service: 06/10/21 Reason For Visit: PTSD, Bipolar Disorder, Stimulant Use Disorder-pete Subjective Notes: Conditional Voluntary Healthcare Proxy: No Guardianship: No Medical Problems Affecting Mental Status: No Interim History: Pt reports ongoing anxiety, distress in a high intensity milieu. Several potential threats-peers with disinhibition, peers who are confro ntive to her-pt feeling she needs to be ready to fight at all times, feeling defensive and like others behaviors are activatng her PTSD. Reports RA pain, carpal tunnel pain and requests CPAP. Medication Compliance: Yes Side effects from medications: No Attending Groups: Yes Review of Systems Acute medical concerns: No Medical Review of Systems: unchanged Review of Systems Reports behavioral changes Psychiatric: Reports anxiety, Reports behavioral changes, Reports depression, Reports difficulty concentrating, Reports hopelessness, Reports irritability, Reports anhedonia, Reports mood swings, Reports paranoia, Reports homicidal ideation and Reports suicidal ideation Mental Status Exam Mental Status Exam Patient Appearance: Fatigued and Disheveled Patient Orientation: Person, Place, Time and Situation Level of Consciousness: Alert Patient Behavior: Guarded, Talkative, Suspicious, Avoidant, Isolative and Good Eye Contact Mood Description: Constricted Affect Description: Constricted Patient Cognition Impaired: No Ability to Follow Directions: Good Speech Pattern: Spontaneous Speech Memory Description: Remote Impaired and Episodic Impaired Hallucinations: None Delusions: Paranoid Ideation (PTSD triggers activated pt reports.) Perceptual Disturbances: Depersonalization Thought Process: Distracted and Goal Oriented Thought Content: positive for [place], positive for Circumstantial, positive for Goal Oriented and positive for Suicidal Ideation Depressive Symptoms: Increased Anxiety and Increased Irritability Abnormal Motor Activity Signs and Symptoms: Restlessness Judgement: Fair Diagnostics Vital Signs (24Hr): Vital Signs - 24 hr 06/09/21 23:10 06/10/21 06:00 Temperature 96.9 F 97.4 F Pulse Rate 73 73 Blood Pressure 129/78 124/59 L Body Mass Index 30.4 Labs Results: 06/05/21 23:44 06/05/21 23:44 Labs: Laboratory Results - last 48 hr 06/09/21 06/09/21 06/09/21 08:00 08:00 08:00 Estimat Average Glucose 117 Hemoglobin A1c % 5.7 Triglycerides 170 Cholesterol 201 LDL Cholesterol, Calc 119 HDL Cholesterol 48 Vitamin B12 379 Folate 7.6 TSH 1.02 [place] 06/09/21 06/10/21 08:00 07:52 Estimat Average Glucose Hemoglobin A1c % Triglycerides 125 Cholesterol 202 LDL Cholesterol, Calc 124 HDL Cholesterol 53 Vitamin B12 Folate TSH [place] 0.42 L Medications Medications Current Medications Generic Name Dose Route Start Last Admin Trade Name Freq PRN Reason Stop Dose Admin Acetaminophen 650 mg 06/08/21 16:07 06/09/21 21:50 Acetaminophen 325 Mg Tablet PO 650 mg Q6H PRN Administration Headache/Pain Mild Scale (1-3) Al Hydroxide/Mg Hydroxide 30 ml 06/08/21 16:07 Magnesium Hydrox/Alum Hydrox 30 Ml Oral.Susp PO Q6H PRN Heartburn/Nausea Albuterol Sulfate 2 puff 06/07/21 10:12 Albuterol Sulfate 90 Mcg 8 Gm Inhaler INHALE QID PRN wheezing Chlorpromazine HCl 12.5 mg 06/08/21 01:35 06/08/21 13:36 Chlorpromazine Hcl 25 Mg Tablet PO 12.5 mg Q4H PRN Administration anxiety/agitation Docusate Sodium 100 mg 06/08/21 01:35 Docusate Sodium 100 Mg Capsule PO BID PRN constipation Ferrous Sulfate 324 mg 06/08/21 09:00 06/10/21 08:34 Ferrous Sulfate 324 Mg Tablet.Dr PO 324 mg DAILY TEJA Administration Fluticasone/Vilanterol 1 puff 06/07/21 11:00 06/10/21 08:33 Fluticasone/Vilanterol 200/25 Blst.W.Dev INHALE 1 puff RDAILY TEJA Administration Hydroxyzine HCl 25 mg 06/08/21 01:35 Hydroxyzine Hcl 25 Mg Tablet PO BEDTIME PRN Anxiety [place] Carbonate 600 mg 06/08/21 09:00 06/10/21 08:34 [place] Carbonate Er 300 Mg Tablet.Er PO 600 mg BID TEJA Administration Lorazepam 2 mg 06/06/21 14:05 06/09/21 13:18 Lorazepam 0.5 Mg Tablet PO 2 mg Q6H PRN Administration anxiety Magnesium Hydroxide 30 ml 06/08/21 16:07 Milk Of Magnesia 30 Ml Oral.Susp PO DAILY PRN Constipation Nicotine Polacrilex 2 mg 06/07/21 10:12 Nicotine Polacrilex 2 Mg Gum BUCCAL Q2H PRN SMOKING CESSATION Omeprazole 20 mg 06/08/21 06:30 06/10/21 08:34 Omeprazole 20 Mg Capsule. PO 20 mg DAILY@0630 TEJA Administration Prazosin HCl 1 mg 06/08/21 21:00 06/09/21 21:50 Prazosin Hcl 1 Mg Capsule PO 1 mg BEDTIME TEJA Administration Protocol Sertraline HCl 50 mg 06/08/21 09:00 06/10/21 08:34 Sertraline Hcl 50 Mg Tablet PO 50 mg DAILY TEJA Administration Tiotropium [place] 1 puff 06/08/21 08:00 06/10/21 08:33 Tiotropium [place] 18 Mcg Cap.W.Dev INHALE 1 puff RDAILY TEJA Administration Trazodone HCl 150 mg 06/08/21 21:00 06/09/21 21:50 Trazodone Hcl 50 Mg Tablet PO 150 mg BEDTIME TEJA Administration Valacyclovir HCl 1,000 mg 06/08/21 09:00 06/10/21 08:35 Valacycyclovir Hcl 1,000 Mg Tablet PO 1,000 mg BID TEJA Administration Vitamin D 25 mcg 06/08/21 09:00 06/10/21 08:34 Cholecalciferol (Vitamin D3) 25 Mcg Tablet PO 25 mcg DAILY TEJA Administration Allergies Allergies Allergy/AdvReac Type Severity Reaction Status Date / Time aspirin [Aspirin] Allergy Severe HIVES,THROAT Verified 06/05/21 21:34 SWELLS bee pollen [BEE STINGS] Allergy Severe ANAPHYLAXIS Verified 06/05/21 21:34 diphenhydramine Allergy Severe hives, Verified 06/05/21 21:34 [From BENADRYL ALLERGY] throat swells Penicillins [PCN] Allergy Severe HIVES Verified 06/05/21 21:34 THROAT SWELLS Sulfa (Sulfonamide Allergy Intermediate HIVES Verified 06/05/21 21:34 Antibiotics) [SULFA (SULFONAMIDE ANTIBIOTICS)] tramadol [TRAMADOL] Allergy Intermediate ITCHING Verified 06/05/21 21:34 latex [LATEX] Allergy Unknown UNKNOWN Verified 06/05/21 21:34 penicillin G Allergy Unknown Unknown Verified 06/05/21 21:34 levofloxacin [From Levaquin] Allergy Hives Verified 06/05/21 21:34 bee stings Allergy Unknown Unknown Uncoded 06/05/21 21:34 DairyCare Allergy Unknown Unknown Uncoded 06/05/21 21:34 sulfa drugs Allergy Unknown Unknown Uncoded 06/05/21 21:34 Assessment & Plan Assessment & Plan (1) Bipolar I disorder: Status: Acute Code(s): F31.9 - Bipolar disorder, unspecified Assessment and Plan: 51 yo female, hx of bipolar disorder, PTSD, recent discharge from , non compliant with treatment planning, medicines since discharge, [place] level 0.10 on 06/08 to ER with EMS after smoking crack-cocaine with resulting paranoia, SI. Medically cleared by ER team. Plan: Stabilization of mood and thought process Re-establish regime and out patient care Reconnect with [facility] regarding services, housing (2) PTSD (post-traumatic stress disorder): Status: Acute Code(s): F43.10 - Post-traumatic stress disorder, unspecified Assessment and Plan: -Continue out patient plan of care. Grounding re-enforcement, assistance in mgt of triggering situations. (3) Cocaine use disorder: Status: Acute Code(s): F14.10 - Cocaine abuse, uncomplicated Assessment and Plan: -Discuss with pt willingness to attend IOP/CSS for extended treatment. Greater than 50% of the session was spent on counseling and/or coordination of care Patient educated on: therapeutic strategies Informed Consent: understands and further education needed Reason for contiued inpatient stay Substantial Risk for: harm to self, harm to others, inability to function and rapid decompensation
[2021-06-10 18:00] VITALS: RESP 16
[2021-06-10 21:55] VITALS: BP 124/58; PULSE 87; RESP 16
[2021-06-10 22:02] VITALS: BP 128/62; PULSE 88
[2021-06-10] MEDS: Prazosin HCL 1 MG CAPSULE PO (22:02)
[2021-06-10] MEDS: hydrOXYzine HCL 25 MG TABLET PO (22:02)
[2021-06-10] MEDS: traZODone HCL 50 MG TABLET 150 MG PO (22:02)
[2021-06-11 07:00] VITALS: BMI 36.8
[2021-06-11] MEDS: LORazepam 0.5 MG TABLET 2 MG PO ×2 (09:14→22:01)
[2021-06-11] MEDS: Ferrous Sulfate 324 MG TABLET.DR PO (09:15)
[2021-06-11] MEDS: Sertraline HCL 50 MG TABLET PO (09:15)
[2021-06-11] MEDS: Cholecalciferol (Vitamin D3) 25 MCG TABLET PO (09:15)
[2021-06-11] MEDS: Omeprazole 20 MG CAPSULE.DR PO (09:15)
[2021-06-11] MEDS: Lithium Carbonate ER 300 MG TABLET.ER 600 MG PO ×2 (09:15→22:02)
[2021-06-11] MEDS: Fluticasone/Vilanterol 200/25 BLST.W.DEV 1 PUFF INHALE (09:16)
[2021-06-11] MEDS: LORazepam 1 MG TABLET PO (13:51)
[2021-06-11] MEDS: chlorproMAZINE HCl 25 MG TABLET 50 MG PO (13:51)
--- NOTE | 2021-06-11 17:09 | HO.PSYCHPN ---
Subjective Subjective Date of Service: 06/11/21 Reason For Visit: PTSD, Bipolar Disorder, Stimulant Use Disorder-pete Subjective Notes: Conditional Voluntary Healthcare Proxy: No Guardianship: No Medical Problems Affecting Mental Status: No Interim History: Sometimes my vision doubles Struggling with triggers in an active difficult milieu. Thorazine 50 mg/Ativan 1 mg given for increase in sx of distress, paranoia, PTSD triggers. Pt spending much time in her room. States she needs to be on the defense with others, feeling the need to be prepared to fight. Discussed her reasoning for declining [facility] offer for housing for pt to live in [place] vs living in an apartment [place] a liquor establishment and her concerns. Requested Nicoderm patch which was ordered. Medication Compliance: Yes Side effects from medications: No Attending Groups: Intermittent Review of Systems Acute medical concerns: No monitor reports of double vision Medical Review of Systems: unchanged Review of Systems Eyes: Reports diplopia (pt reports at times) Reports behavioral changes Psychiatric: Reports anxiety, Reports behavioral changes, Reports difficulty concentrating, Reports auditory hallucinations, Reports hopelessness, Reports irritability, Reports anhedonia, Reports mood swings, Reports panic attacks, Reports paranoia, Reports homicidal ideation and Reports suicidal ideation Mental Status Exam Mental Status Exam Patient Appearance: Fatigued Patient Orientation: Person, Place, Time and Situation Level of Consciousness: Restless and Alert Patient Behavior: Guarded, Talkative, Cooperative, Suspicious, Restless, Belligerent, Swearing, Anxious, Fearful, Avoidant, Fatigued, Distractible, Isolative, Good Eye Contact and Impulsive Mood Description: Anxious and Labile Affect Description: Labile Patient Cognition Impaired: Yes Ability to Follow Directions: Good Speech Pattern: Perseverating and Spontaneous Speech Memory Description: Episodic Impaired Hallucinations: Auditory Delusions: Paranoid Ideation Perceptual Disturbances: Depersonalization and Derealization Thought Process: Racing, Distracted and Rumination Thought Content: positive for [place], positive for Circumstantial, positive for Perseveration, positive for Preoccupation, positive for Thought Blocking, positive for Suicidal Ideation and positive for Homicidal Ideation Depressive Symptoms: Increased Anxiety, Diff. Making Decisions, Increased Irritability, Muscle Pain, Unhappiness, Increased Fatigue, Thoughts of /Suicide, Loss of Energy and Difficulty Concentrating Abnormal Motor Activity Signs and Symptoms: Agitation and Restlessness Judgement: Good Diagnostics Vital Signs (24Hr): Vital Signs - 24 hr 06/10/21 18:00 06/10/21 21:55 06/10/21 22:02 Pulse Rate 87 88 Respiratory Rate 16 16 Blood Pressure 124/58 L 128/62 Body Mass Index 36.8 Labs Results: 06/05/21 23:44 06/05/21 23:44 Labs: Laboratory Results - last 48 hr 06/10/21 07:52 Triglycerides 125 Cholesterol 202 LDL Cholesterol, Calc 124 HDL Cholesterol 53 Medications Medications Current Medications Generic Name Dose Route Start Last Admin Trade Name Ramoneq PRN Reason Stop Dose Admin Acetaminophen 650 mg 06/08/21 16:07 06/09/21 21:50 Acetaminophen 325 Mg Tablet PO 650 mg Q6H PRN Administration Headache/Pain Mild Scale (1-3) Al Hydroxide/Mg Hydroxide 30 ml 06/08/21 16:07 Magnesium Hydrox/Alum Hydrox 30 Ml Oral.Susp PO Q6H PRN Heartburn/Nausea Albuterol Sulfate 2 puff 06/07/21 10:12 Albuterol Sulfate 90 Mcg 8 Gm Inhaler INHALE QID PRN wheezing Chlorpromazine HCl 25 mg 06/11/21 13:44 Chlorpromazine Hcl 25 Mg Tablet PO Q4H PRN anxiety/agitation Docusate Sodium 100 mg 06/08/21 01:35 Docusate Sodium 100 Mg Capsule PO BID PRN constipation Ferrous Sulfate 324 mg 06/08/21 09:00 06/11/21 09:15 Ferrous Sulfate 324 Mg Tablet.Dr PO 324 mg DAILY TEJA Administration Fluticasone/Vilanterol 1 puff 06/07/21 11:00 06/11/21 09:16 Fluticasone/Vilanterol 200/25 Blst.W.Dev INHALE 1 puff RDAILY TEJA Administration Hydroxyzine HCl 25 mg 06/08/21 01:35 06/10/21 22:02 Hydroxyzine Hcl 25 Mg Tablet PO 25 mg BEDTIME PRN Administration Anxiety [place] Carbonate 600 mg 06/08/21 09:00 06/11/21 09:15 [place] Carbonate Er 300 Mg Tablet.Er PO 600 mg BID TEJA Administration Lorazepam 2 mg 06/06/21 14:05 06/11/21 09:14 Lorazepam 0.5 Mg Tablet PO 2 mg Q6H PRN Administration anxiety Magnesium Hydroxide 30 ml 06/08/21 16:07 Milk Of Magnesia 30 Ml Oral.Susp PO DAILY PRN Constipation Nicotine Polacrilex 2 mg 06/07/21 10:12 Nicotine Polacrilex 2 Mg Gum BUCCAL Q2H PRN SMOKING CESSATION Omeprazole 20 mg 06/08/21 06:30 06/11/21 09:15 Omeprazole 20 Mg Capsule.Dr PO 20 mg DAILY@0630 TEJA Administration Prazosin HCl 1 mg 06/08/21 21:00 06/10/21 22:02 Prazosin Hcl 1 Mg Capsule PO 1 mg BEDTIME TEJA Administration Protocol Sertraline HCl 50 mg 06/08/21 09:00 06/11/21 09:15 Sertraline Hcl 50 Mg Tablet PO 50 mg DAILY TEJA Administration Tiotropium [place] 1 puff 06/08/21 08:00 06/11/21 09:15 Tiotropium [place] 18 Mcg Cap.W.Dev INHALE 1 puff RDAILY TEJA Administration Trazodone HCl 150 mg 06/08/21 21:00 06/10/21 22:02 Trazodone Hcl 50 Mg Tablet PO 150 mg BEDTIME TEJA Administration Valacyclovir HCl 1,000 mg 06/08/21 09:00 06/11/21 09:15 Valacycyclovir Hcl 1,000 Mg Tablet PO 1,000 mg BID TEJA Administration Vitamin D 25 mcg 06/08/21 09:00 06/11/21 09:15 Cholecalciferol (Vitamin D3) 25 Mcg Tablet PO 25 mcg DAILY TEJA Administration Allergies Allergies Allergy/AdvReac Type Severity Reaction Status Date / Time aspirin [Aspirin] Allergy Severe HIVES,THROAT Verified 06/05/21 21:34 SWELLS bee pollen [BEE STINGS] Allergy Severe ANAPHYLAXIS Verified 06/05/21 21:34 diphenhydramine Allergy Severe hives, Verified 06/05/21 21:34 [From BENADRYL ALLERGY] throat swells Penicillins [PCN] Allergy Severe HIVES Verified 06/05/21 21:34 THROAT SWELLS Sulfa (Sulfonamide Allergy Intermediate HIVES Verified 06/05/21 21:34 Antibiotics) [SULFA (SULFONAMIDE ANTIBIOTICS)] tramadol [TRAMADOL] Allergy Intermediate ITCHING Verified 06/05/21 21:34 latex [LATEX] Allergy Unknown UNKNOWN Verified 06/05/21 21:34 penicillin G Allergy Unknown Unknown Verified 06/05/21 21:34 levofloxacin [From Levaquin] Allergy Hives Verified 06/05/21 21:34 bee stings Allergy Unknown Unknown Uncoded 06/05/21 21:34 DairyCare Allergy Unknown Unknown Uncoded 06/05/21 21:34 sulfa drugs Allergy Unknown Unknown Uncoded 06/05/21 21:34 Assessment & Plan Assessment & Plan (1) Bipolar I disorder: Status: Acute Code(s): F31.9 - Bipolar disorder, unspecified Assessment and Plan: 51 yo female, hx of bipolar disorder, PTSD, recent discharge from , non compliant with treatment planning, medicines since discharge, [place] level 0.10 on 06/08 to ER with EMS after smoking crack-cocaine with resulting paranoia, SI. Medically cleared by ER team. Plan: Stabilization of mood and thought process Re-establish regime and out patient care Reconnect with [facility] regarding services, housing Nicotine Patch Increase PRN Thorazine to 25 mg (2) PTSD (post-traumatic stress disorder): Status: Acute Code(s): F43.10 - Post-traumatic stress disorder, unspecified Assessment and Plan: -Continue out patient plan of care. Grounding re-enforcement, assistance in mgt of triggering situations. (3) Cocaine use disorder: Status: Acute Code(s): F14.10 - Cocaine abuse, uncomplicated Assessment and Plan: -Discuss with pt willingness to attend IOP/CSS for extended treatment. Greater than 50% of the session was spent on counseling and/or coordination of care Reason for contiued inpatient stay Substantial Risk for: harm to self, harm to others, inability to function and rapid decompensation
[2021-06-11 18:00] VITALS: BP 139/82; PULSE 88; RESP 16; TEMP 36.7; O2SAT 97
[2021-06-11] MEDS: traZODone HCL 50 MG TABLET 150 MG PO (22:01)
[2021-06-11 22:02] VITALS: BP 139/82
[2021-06-11] MEDS: Prazosin HCL 1 MG CAPSULE PO (22:02)
[2021-06-11] MEDS: hydrOXYzine HCL 25 MG TABLET PO (22:02)
[2021-06-12 08:14] VITALS: BP 120/73; PULSE 83; RESP 18; TEMP 36.2; O2SAT 95
[2021-06-12] MEDS: LORazepam 0.5 MG TABLET 2 MG PO (08:16)
[2021-06-12] MEDS: Lithium Carbonate ER 300 MG TABLET.ER 600 MG PO ×2 (08:16→21:34)
[2021-06-12] MEDS: Sertraline HCL 50 MG TABLET PO (08:16)
[2021-06-12] MEDS: Cholecalciferol (Vitamin D3) 25 MCG TABLET PO (08:16)
[2021-06-12] MEDS: Omeprazole 20 MG CAPSULE.DR PO (08:16)
[2021-06-12] MEDS: Fluticasone/Vilanterol 200/25 BLST.W.DEV 1 PUFF INHALE (08:16)
[2021-06-12] MEDS: Ferrous Sulfate 324 MG TABLET.DR PO (08:16)
[2021-06-12] MEDS: Nicotine 21 MG PATCH.TD24 TRANSDERMA (08:17)
[2021-06-12] MEDS: chlorproMAZINE HCl 25 MG TABLET PO (08:17)
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
[2021-06-12 18:00] VITALS: BP 136/69; PULSE 96; RESP 16; TEMP 36.8; O2SAT 96
[2021-06-12 21:32] VITALS: BP 136/69; PULSE 96
[2021-06-12] MEDS: Prazosin HCL 1 MG CAPSULE PO (21:32)
[2021-06-12] MEDS: OLANZapine 5 MG TABLET PO (21:33)
[2021-06-12] MEDS: traZODone HCL 50 MG TABLET 150 MG PO (21:33)
[2021-06-12] MEDS: hydrOXYzine HCL 25 MG TABLET PO (22:45)
[2021-06-13 06:00] VITALS: BP 140/70; PULSE 77; TEMP 36.9; O2SAT 92
[2021-06-13] MEDS: Nicotine 21 MG PATCH.TD24 TRANSDERMA (08:59)
[2021-06-13] MEDS: Fluticasone/Vilanterol 200/25 BLST.W.DEV 1 PUFF INHALE (09:00)
[2021-06-13] MEDS: Omeprazole 20 MG CAPSULE.DR PO (09:01)
[2021-06-13] MEDS: Ferrous Sulfate 324 MG TABLET.DR PO (09:01)
[2021-06-13] MEDS: Cholecalciferol (Vitamin D3) 25 MCG TABLET PO (09:01)
[2021-06-13] MEDS: Lithium Carbonate ER 300 MG TABLET.ER 600 MG PO ×2 (09:01→20:51)
[2021-06-13] MEDS: OLANZapine 5 MG TABLET PO ×2 (09:01→20:53)
[2021-06-13] MEDS: Sertraline HCL 50 MG TABLET PO (09:01)
--- NOTE | 2021-06-13 11:30 | HO.PSYCHPN ---
Subjective Subjective Date of Service: 06/13/21 Reason For Visit: PTSD, Bipolar Disorder, Stimulant Use Disorder-pete Interim History: Patient was seen in rounds today. She has been the little groggy and complains of some anxiety episodes. She is isolative. She does have some auditory hallucinations. No self-destructive episodes. She has been anxious. Continues to also complain of depression. She has been med compliant. No complaints or side effects. Eating and sleeping adequately. No changes were made today Review of Systems Review of Systems Yes all other systems are reviewed and are negative Mental Status Exam Mental Status Exam Narrative: In today's visit she is alert, oriented and pleasant. Normal speech. Good eye contact. Affect is appropriate and varied. No signs of psychosis. Admits to occasional auditory hallucinations. No SI/HI. Cognitively intact. Judgment is intact Diagnostics Vital Signs (24Hr): Vital Signs - 24 hr 06/12/21 18:00 06/12/21 21:32 06/13/21 06:00 Temperature 98.2 F 98.4 F Pulse Rate 96 96 77 Respiratory Rate 16 Blood Pressure 136/69 136/69 140/70 H Pulse Oximetry 96 92 Body Mass Index 36.8 Labs Results: 06/05/21 23:44 06/05/21 23:44 Medications Medications Current Medications Generic Name Dose Route Start Last Admin Trade Name Ramoneq PRN Reason Stop Dose Admin Acetaminophen 650 mg 06/08/21 16:07 06/09/21 21:50 Acetaminophen 325 Mg Tablet PO 650 mg Q6H PRN Administration Headache/Pain Mild Scale (1-3) Al Hydroxide/Mg Hydroxide 30 ml 06/08/21 16:07 Magnesium Hydrox/Alum Hydrox 30 Ml Oral.Susp PO Q6H PRN Heartburn/Nausea Albuterol Sulfate 2 puff 06/07/21 10:12 Albuterol Sulfate 90 Mcg 8 Gm Inhaler INHALE QID PRN wheezing Docusate Sodium 100 mg 06/08/21 01:35 Docusate Sodium 100 Mg Capsule PO BID PRN constipation Ferrous Sulfate 324 mg 06/08/21 09:00 06/13/21 09:01 Ferrous Sulfate 324 Mg Tablet. PO 324 mg DAILY TEJA Administration Fluticasone/Vilanterol 1 puff 06/07/21 11:00 06/13/21 09:00 Fluticasone/Vilanterol 200/25 Blst.W.Dev INHALE 1 puff RDAILY TEJA Administration Hydroxyzine HCl 25 mg 06/08/21 01:35 06/12/21 22:45 Hydroxyzine Hcl 25 Mg Tablet PO 25 mg BEDTIME PRN Administration Anxiety [place] Carbonate 600 mg 06/08/21 09:00 06/13/21 09:01 [place] Carbonate Er 300 Mg Tablet.Er PO 600 mg BID TEJA Administration Lorazepam 2 mg 06/06/21 14:05 06/12/21 08:16 Lorazepam 0.5 Mg Tablet PO 2 mg Q6H PRN Administration anxiety Magnesium Hydroxide 30 ml 06/08/21 16:07 Milk Of Magnesia 30 Ml Oral.Susp PO DAILY PRN Constipation Nicotine 21 mg 06/12/21 09:00 06/13/21 08:59 Nicotine 21 Mg Patch.Td24 TRANSDERMA 21 mg DAILY TEJA Administration Nicotine Polacrilex 2 mg 06/07/21 10:12 Nicotine Polacrilex 2 Mg Gum BUCCAL Q2H PRN SMOKING CESSATION Olanzapine 5 mg 06/12/21 21:00 06/13/21 09:01 Olanzapine 5 Mg Tablet PO 5 mg BID TEJA Administration Olanzapine 5 mg 06/12/21 13:57 Olanzapine 5 Mg Tablet PO BID PRN psychosis, agitation Omeprazole 20 mg 06/08/21 06:30 06/13/21 09:01 Omeprazole 20 Mg Capsule.Dr PO 20 mg DAILY@0630 TEJA Administration Prazosin HCl 1 mg 06/08/21 21:00 06/12/21 21:32 Prazosin Hcl 1 Mg Capsule PO 1 mg BEDTIME TEJA Administration Protocol Sertraline HCl 50 mg 06/08/21 09:00 06/13/21 09:01 Sertraline Hcl 50 Mg Tablet PO 50 mg DAILY TEJA Administration Tiotropium [place] 1 puff 06/08/21 08:00 06/13/21 09:00 Tiotropium [place] 18 Mcg Cap.W.Dev INHALE 1 puff RDAILY TEJA Administration Trazodone HCl 150 mg 06/08/21 21:00 06/12/21 21:33 Trazodone Hcl 50 Mg Tablet PO 150 mg BEDTIME TEJA Administration Valacyclovir HCl 1,000 mg 06/08/21 09:00 06/13/21 09:01 Valacycyclovir Hcl 1,000 Mg Tablet PO 1,000 mg BID TEJA Administration Vitamin D 25 mcg 06/08/21 09:00 06/13/21 09:01 Cholecalciferol (Vitamin D3) 25 Mcg Tablet PO 25 mcg DAILY TEJA Administration Allergies Allergies Allergy/AdvReac Type Severity Reaction Status Date / Time aspirin [Aspirin] Allergy Severe HIVES,THROAT Verified 06/05/21 21:34 SWELLS bee pollen [BEE STINGS] Allergy Severe ANAPHYLAXIS Verified 06/05/21 21:34 diphenhydramine Allergy Severe hives, Verified 06/05/21 21:34 [From BENADRYL ALLERGY] throat swells Penicillins [PCN] Allergy Severe HIVES Verified 06/05/21 21:34 THROAT SWELLS Sulfa (Sulfonamide Allergy Intermediate HIVES Verified 06/05/21 21:34 Antibiotics) [SULFA (SULFONAMIDE ANTIBIOTICS)] tramadol [TRAMADOL] Allergy Intermediate ITCHING Verified 06/05/21 21:34 latex [LATEX] Allergy Unknown UNKNOWN Verified 06/05/21 21:34 penicillin G Allergy Unknown Unknown Verified 06/05/21 21:34 levofloxacin [From Levaquin] Allergy Hives Verified 06/05/21 21:34 bee stings Allergy Unknown Unknown Uncoded 06/05/21 21:34 DairyCare Allergy Unknown Unknown Uncoded 06/05/21 21:34 sulfa drugs Allergy Unknown Unknown Uncoded 06/05/21 21:34 Assessment & Plan Assessment & Plan (1) Bipolar I disorder: Status: Acute Code(s): F31.9 - Bipolar disorder, unspecified Assessment and Plan: 51 yo female, hx of bipolar disorder, PTSD, recent discharge from , non compliant with treatment planning, medicines since discharge, [place] level 0.10 on 06/08 to ER with EMS after smoking crack-cocaine with resulting paranoia, SI. Medically cleared by ER team. Plan: Continue current regimen and plans (2) PTSD (post-traumatic stress disorder): Status: Acute Code(s): F43.10 - Post-traumatic stress disorder, unspecified Assessment and Plan: -Continue out patient plan of care. Grounding re-enforcement, assistance in mgt of triggering situations. (3) Cocaine use disorder: Status: Acute Code(s): F14.10 - Cocaine abuse, uncomplicated Assessment and Plan: -Discuss with pt willingness to attend IOP/CSS for extended treatment. Greater than 50% of the session was spent on counseling and/or coordination of care Reason for contiued inpatient stay Substantial Risk for: other
[2021-06-13 20:12] VITALS: BP 135/70; PULSE 73; RESP 18; TEMP 36.6; O2SAT 97
[2021-06-13 20:52] VITALS: BP 135/70; PULSE 73
[2021-06-13] MEDS: Prazosin HCL 1 MG CAPSULE PO (20:52)
[2021-06-13] MEDS: traZODone HCL 50 MG TABLET 150 MG PO (20:53)
[2021-06-14 06:00] VITALS: BP 120/73; PULSE 78; RESP 16; TEMP 36.6; O2SAT 95
[2021-06-14] MEDS: Nicotine 21 MG PATCH.TD24 TRANSDERMA (08:54)
[2021-06-14] MEDS: Fluticasone/Vilanterol 200/25 BLST.W.DEV 1 PUFF INHALE (08:54)
[2021-06-14] MEDS: Cholecalciferol (Vitamin D3) 25 MCG TABLET PO (08:56)
[2021-06-14] MEDS: Lithium Carbonate ER 300 MG TABLET.ER 600 MG PO ×2 (08:56→20:31)
[2021-06-14] MEDS: Ferrous Sulfate 324 MG TABLET.DR PO (08:56)
[2021-06-14] MEDS: OLANZapine 5 MG TABLET PO ×2 (08:56→20:30)
[2021-06-14] MEDS: Sertraline HCL 50 MG TABLET PO (08:56)
[2021-06-14] MEDS: Omeprazole 20 MG CAPSULE.DR PO (08:56)
--- NOTE | 2021-06-14 09:14 | HO.PSYCHPN ---
Subjective Subjective Date of Service: 06/14/21 Reason For Visit: PTSD, Bipolar Disorder, Stimulant Use Disorder-pete Subjective Notes: Conditional Voluntary Interim History: patient was seen in rounds today. She has been doing better and has been brighter. Decrease in appetite which she is happy about. She is med compliant. No complaints or side effects. Eating and sleeping adequately. No changes were made today Medication Compliance: Yes Side effects from medications: No Review of Systems Review of Systems Yes all other systems are reviewed and are negative Diagnostics Vital Signs (24Hr): Vital Signs - 24 hr 06/13/21 20:12 06/13/21 20:52 06/14/21 06:00 Temperature 97.9 F 97.9 F Pulse Rate 73 73 78 Respiratory Rate 18 16 Blood Pressure 135/70 135/70 120/73 Pulse Oximetry 97 95 Body Mass Index 36.8 Labs Results: 06/05/21 23:44 06/05/21 23:44 Medications Medications Current Medications Generic Name Dose Route Start Last Admin Trade Name Freq PRN Reason Stop Dose Admin Acetaminophen 650 mg 06/08/21 16:07 06/09/21 21:50 Acetaminophen 325 Mg Tablet PO 650 mg Q6H PRN Administration Headache/Pain Mild Scale (1-3) Al Hydroxide/Mg Hydroxide 30 ml 06/08/21 16:07 Magnesium Hydrox/Alum Hydrox 30 Ml Oral.Susp PO Q6H PRN Heartburn/Nausea Albuterol Sulfate 2 puff 06/07/21 10:12 Albuterol Sulfate 90 Mcg 8 Gm Inhaler INHALE QID PRN wheezing Docusate Sodium 100 mg 06/08/21 01:35 Docusate Sodium 100 Mg Capsule PO BID PRN constipation Ferrous Sulfate 324 mg 06/08/21 09:00 06/14/21 08:56 Ferrous Sulfate 324 Mg Tablet. PO 324 mg DAILY TEJA Administration Fluticasone/Vilanterol 1 puff 06/07/21 11:00 06/14/21 08:54 Fluticasone/Vilanterol 200/25 Blst.W.Dev INHALE 1 puff RDAILY TEJA Administration Hydroxyzine HCl 25 mg 06/08/21 01:35 06/12/21 22:45 Hydroxyzine Hcl 25 Mg Tablet PO 25 mg BEDTIME PRN Administration Anxiety [place] Carbonate 600 mg 06/08/21 09:00 06/14/21 08:56 [place] Carbonate Er 300 Mg Tablet.Er PO 600 mg BID TEJA Administration Lorazepam 2 mg 06/06/21 14:05 06/12/21 08:16 Lorazepam 0.5 Mg Tablet PO 2 mg Q6H PRN Administration anxiety Magnesium Hydroxide 30 ml 06/08/21 16:07 Milk Of Magnesia 30 Ml Oral.Susp PO DAILY PRN Constipation Nicotine 21 mg 06/12/21 09:00 06/14/21 08:54 Nicotine 21 Mg Patch.Td24 TRANSDERMA 21 mg DAILY TEJA Administration Nicotine Polacrilex 2 mg 06/07/21 10:12 Nicotine Polacrilex 2 Mg Gum BUCCAL Q2H PRN SMOKING CESSATION Olanzapine 5 mg 06/12/21 21:00 06/14/21 08:56 Olanzapine 5 Mg Tablet PO 5 mg BID TEJA Administration Olanzapine 5 mg 06/12/21 13:57 Olanzapine 5 Mg Tablet PO BID PRN psychosis, agitation Omeprazole 20 mg 06/08/21 06:30 06/14/21 08:56 Omeprazole 20 Mg Capsule. PO 20 mg DAILY@0630 TEJA Administration Prazosin HCl 1 mg 06/08/21 21:00 06/13/21 20:52 Prazosin Hcl 1 Mg Capsule PO 1 mg BEDTIME TEJA Administration Protocol Sertraline HCl 50 mg 06/08/21 09:00 06/14/21 08:56 Sertraline Hcl 50 Mg Tablet PO 50 mg DAILY TEJA Administration Tiotropium [place] 1 puff 06/08/21 08:00 06/13/21 09:00 Tiotropium [place] 18 Mcg Cap.W.Dev INHALE 1 puff RDAILY TEJA Administration Trazodone HCl 150 mg 06/08/21 21:00 06/13/21 20:53 Trazodone Hcl 50 Mg Tablet PO 150 mg BEDTIME TEJA Administration Valacyclovir HCl 1,000 mg 06/08/21 09:00 06/14/21 08:56 Valacycyclovir Hcl 1,000 Mg Tablet PO 1,000 mg BID TEJA Administration Vitamin D 25 mcg 06/08/21 09:00 06/14/21 08:56 Cholecalciferol (Vitamin D3) 25 Mcg Tablet PO 25 mcg DAILY TEJA Administration Allergies Allergies Allergy/AdvReac Type Severity Reaction Status Date / Time aspirin [Aspirin] Allergy Severe HIVES,THROAT Verified 06/05/21 21:34 SWELLS bee pollen [BEE STINGS] Allergy Severe ANAPHYLAXIS Verified 06/05/21 21:34 diphenhydramine Allergy Severe hives, Verified 06/05/21 21:34 [From BENADRYL ALLERGY] throat swells Penicillins [PCN] Allergy Severe HIVES Verified 06/05/21 21:34 THROAT SWELLS Sulfa (Sulfonamide Allergy Intermediate HIVES Verified 06/05/21 21:34 Antibiotics) [SULFA (SULFONAMIDE ANTIBIOTICS)] tramadol [TRAMADOL] Allergy Intermediate ITCHING Verified 06/05/21 21:34 latex [LATEX] Allergy Unknown UNKNOWN Verified 06/05/21 21:34 penicillin G Allergy Unknown Unknown Verified 06/05/21 21:34 levofloxacin [From Levaquin] Allergy Hives Verified 06/05/21 21:34 bee stings Allergy Unknown Unknown Uncoded 06/05/21 21:34 DairyCare Allergy Unknown Unknown Uncoded 06/05/21 21:34 sulfa drugs Allergy Unknown Unknown Uncoded 06/05/21 21:34 Assessment & Plan Assessment & Plan (1) Bipolar I disorder: Status: Acute Code(s): F31.9 - Bipolar disorder, unspecified Assessment and Plan: 51 yo female, hx of bipolar disorder, PTSD, recent discharge from , non compliant with treatment planning, medicines since discharge, [place] level 0.10 on 06/08 to ER with EMS after smoking crack-cocaine with resulting paranoia, SI. Medically cleared by ER team. Plan: Continue current regimen and plans (2) PTSD (post-traumatic stress disorder): Status: Acute Code(s): F43.10 - Post-traumatic stress disorder, unspecified Assessment and Plan: -Continue out patient plan of care. Grounding re-enforcement, assistance in mgt of triggering situations. (3) Cocaine use disorder: Status: Acute Code(s): F14.10 - Cocaine abuse, uncomplicated Assessment and Plan: -Discuss with pt willingness to attend IOP/CSS for extended treatment. Greater than 50% of the session was spent on counseling and/or coordination of care Reason for contiued inpatient stay Substantial Risk for: other
[2021-06-14 19:19] VITALS: BP 130/76; PULSE 86; TEMP 36.7; O2SAT 93
[2021-06-14 20:30] VITALS: BP 130/76; PULSE 86
[2021-06-14] MEDS: Prazosin HCL 1 MG CAPSULE PO (20:30)
[2021-06-14] MEDS: traZODone HCL 50 MG TABLET 150 MG PO (20:30)
[2021-06-15 06:00] VITALS: BP 117/68; PULSE 77; RESP 16; TEMP 35.9; O2SAT 94
[2021-06-15] MEDS: Nicotine 21 MG PATCH.TD24 TRANSDERMA (08:51)
[2021-06-15] MEDS: Fluticasone/Vilanterol 200/25 BLST.W.DEV 1 PUFF INHALE (08:51)
[2021-06-15] MEDS: OLANZapine 5 MG TABLET PO (08:52)
[2021-06-15] MEDS: Omeprazole 20 MG CAPSULE.DR PO (08:52)
[2021-06-15] MEDS: Sertraline HCL 50 MG TABLET PO (08:52)
[2021-06-15] MEDS: Cholecalciferol (Vitamin D3) 25 MCG TABLET PO (08:52)
[2021-06-15] MEDS: Lithium Carbonate ER 300 MG TABLET.ER 600 MG PO (08:52)
[2021-06-15] MEDS: Ferrous Sulfate 324 MG TABLET.DR PO (08:52)
--- NOTE | 2021-06-15 11:40 | P.DS_ITS ---
DS: Providers Provider Date of Service: 06/15/21 Date of admission: 06/08/21 16:07 Date of discharge: 06/15/21 Primary care physician: [facility]-Pt to make appt per her request Admitting clinician: Reina Lyle Attending physician on admission: Mayo Cardona Consults: 06/13/21 09:00 Consult to Hospitalist Routine Consulting Provider: Hospitalist Reason For Exam: vaginal pain Attending physician on discharge: Mayo Cardona Discharging clinician: Reina Lyle DS: Diagnosis Discharge Diagnosis (1) Bipolar I disorder: Status: Acute (2) PTSD (post-traumatic stress disorder): Status: Acute (3) Cocaine use disorder: Status: Acute DS: Medications Discharge Medications Home Medications: Previous Rx's Medication Instructions Recorded albuterol sulfate 90 mcg/actuation 2 puff INHALATION QID PRN 30 Days 06/15/21 aerosol inhaler #1 g cholecalciferol (vitamin D3) 25 25 mcg PO DAILY 30 Days #30 tab 06/15/21 mcg (1,000 unit) tablet docusate sodium 100 mg capsule 100 mg PO BID PRN 30 Days #60 cap 06/15/21 ferrous sulfate 324 mg (65 mg 324 mg PO DAILY 30 Days #30 tab 06/15/21 iron) tablet,delayed release fluticasone 232 mcg-salmeterol 14 1 inh INHALATION BID 30 Days #1 ea 06/15/21 mcg/actuation breath activated powdr lithium carbonate 300 mg 600 mg PO BID 30 Days #120 tab 06/15/21 tablet,extended release nicotine (polacrilex) 2 mg gum 2 mg BUCCAL Q2H PRN #30 ea 06/15/21 nicotine 21 mg/24 hr daily 21 mg TRANSDERMAL DAILY #30 ea 06/15/21 transdermal patch olanzapine 5 mg tablet 5 mg PO BID #60 tab 06/15/21 omeprazole 20 mg capsule,delayed 20 mg PO DAILY@0630 30 Days #30 cap 06/15/21 release prazosin 1 mg capsule 1 mg PO BEDTIME 30 Days #30 cap 06/15/21 sertraline 50 mg tablet 50 mg PO DAILY #30 tab 06/15/21 trazodone 50 mg tablet 150 mg PO BEDTIME 30 Days #90 tab 06/15/21 valacyclovir 1 gram tablet 1,000 mg PO BID 30 Days #60 tab 06/15/21 (Valtrex) Mental Status Exam Mental Status Exam Patient Appearance: Appropriate Patient Orientation: Person, Place, Time and Situation Level of Consciousness: Alert Patient Behavior: Talkative and Cooperative Mood Description: Calm Affect Description: Calm Patient Cognition Impaired: No Ability to Follow Directions: Good Speech Pattern: Spontaneous Speech Memory Description: Intact Hallucinations: None Delusions: Not Present Thought Process: Intact Thought Content: positive for Intact Judgement: Good Data Data Completed and Pending Completed studies during hospitalization [Text1]: 06/09/21 06/09/21 06/09/21 08:00 08:00 08:00 Estimat Average Glucose 117 Hemoglobin A1c % 5.7 Triglycerides 170 Cholesterol 201 LDL Cholesterol, Calc 119 HDL Cholesterol 48 Vitamin B12 379 Folate 7.6 TSH 1.02 [place] 06/09/21 06/10/21 08:00 07:52 Estimat Average Glucose Hemoglobin A1c % Triglycerides 125 Cholesterol 202 LDL Cholesterol, Calc 124 HDL Cholesterol 53 Vitamin B12 Folate TSH [place] 0.42 L DS: Summary Hospital Course Hospital Course: Bhavana is a 51 yo female with a history of bipolar disorder, PTSD, substance use-cocaine. She presented with increased symptoms of depression, anxiety, having made a superficial cut to her left forearm and feeling SI with a plan to cut her throat after smoking crack cocaine along with some fear and paranoia. Reported hearing voices to harm herself and feeling she was being watched. Pt had also not been medication compliant [employer]. Pt was admitted on conditional voluntary status. Medications were re-started. Olanzapine was added for symptom mgt which pt found helpful as she found the milieu was triggering to her PTSD as well. Chlorpromazine was discontinued as Olanzapine she found more effective. Housing was an issue for Bhavana as well. Her plan was to stay with a friend until Jul.01 when she reported an opportunity to rent an apartment in [place] which she planned to follow up on. Time spent discussing smoking cessation with patient: 3 to 10 minutes Status at Discharge Cognitive/behavioral status at discharge: alert, non-suicidal, non-psychotic, mood stable Functional status at discharge: independent ambulation Overall status at discharge: patient is back to baseline Time Spent with Patient Time attestation: Total time spent providing and/or coordinating discharge services:35 Time spent: Greater than 30 minutes Discharge Plan Discharge Anticipated Discharge Date/Time: 06/15/21 15:00 Patient Disposition: Home, Self-Care Discharge Diagnosis: Bipolar Disorder, Type I PTSD Cocaine Use Disorder Referrals: Dr. Malvin Mars (psychiatry) [Other] - 07/14/21 12:20 pm (This appointment is via Telehealth) Rosa King (therapy) [Other] - 06/19/21 11:00 am (This appointment is in- office) Physician,None [Primary Care Provider] - 1 Week Discharge Medications: New nicotine (polacrilex) 2 mg Gum 2 mg buccal Q2H PRN (Reason: SMOKING CESSATION) Qty: 30 RF: 0 olanzapine 5 mg Tablet 5 mg PO BID Qty: 60 RF: 0 nicotine 21 mg/24 hr Patch 24 Hour 21 mg transdermal DAILY Qty: 30 RF: 0 Continued trazodone 50 mg Tablet 150 mg PO BEDTIME 30 Days Qty: 90 RF: 0 valacyclovir [Valtrex] 1 gram Tablet 1,000 mg PO BID 30 Days Qty: 60 RF: 0 lithium carbonate 300 mg Tablet Extended Release 600 mg PO BID 30 Days Qty: 120 RF: 0 docusate sodium 100 mg Capsule 100 mg PO BID PRN (Reason: constipation) 30 Days Qty: 60 RF: 0 omeprazole 20 mg Capsule,Delayed Release(Dr/Ec) 20 mg PO DAILY@0630 30 Days Qty: 30 RF: 0 albuterol sulfate 90 mcg/actuation HFA aerosol inhaler 2 puff inhalation QID PRN (Reason: wheezing) 30 Days Qty: 1 RF: 0 sertraline 50 mg Tablet 50 mg PO DAILY Qty: 30 RF: 0 cholecalciferol (vitamin D3) 25 mcg (1,000 unit) Tablet 25 mcg PO DAILY 30 Days Qty: 30 RF: 0 ferrous sulfate 324 mg (65 mg iron) Tablet,Delayed Release (Dr/Ec) 324 mg PO DAILY 30 Days Qty: 30 RF: 0 fluticasone propion-salmeterol 232-14 mcg/actuation aerosol powdr breath activated 1 inh inhalation BID 30 Days Qty: 1 RF: 0 Discontinued hydroxyzine HCl 25 mg Tablet 25 mg PO BEDTIME PRN (Reason: Anxiety) Qty: 30 RF: 0 prazosin 1 mg Capsule 1 mg PO BEDTIME 30 Days Qty: 30 RF: 0 chlorpromazine 25 mg Tablet 12.5 mg PO Q4H PRN (Reason: anxiety/agitation) 30 Days Qty: 30 RF: 0 Spiriva Respimat 1.25 mcg/actuation mist 2 puff PO DAILY 30 Days Qty: 4 RF: 0 No Action prazosin 1 mg capsule 1 mg PO BEDTIME RF: 0 prednisone 20 mg tablet 40 mg PO DAILY Qty: 8 RF: 0 Discharge Orders: Discharge Order (Routine); Ordered 06/15/21 Ordered By: Reina Lyle Diet: advance to usual diet Activity on Discharge: As tolerated Stand Alone Forms: Patient Portal Discharge page, Community Support Care Plan Goals: Mood Stabilization No substance use Health Concerns: Bipolar Disorder, Type I PTSD Cocaine Use Disorder Nicotine Use Disorder COPD Plan of Treatment: Attend scheduled appointments Take medications as directed. You have reported you will be going to [facility] today to discuss choice of primary care team. You should have a sleep study scheduled-and your primary care team must give a referral per your insurances request. We can help with a sleep study if your primary care team agrees. Call [phone] ext [phone] for an appointment. Having a sleep study will assist you in obtaining a CPAP prescription. Assessment: Bhavana reports no suicidality. She reports no perceptual alterations. She has a housing plan for two weeks prior to moving into her apartment and has no symptoms of psychosis or agitation. This milieu has been triggering to her PTSD symptoms and she believes her anxiety will decrease when discharged as her spatial boundaries will be improved. Patient Instructions: Olanzapine (By mouth) Discharge Date/Time: 06/15/21 14:30
== END 2021-06-15 14:30 | disposition home or self-care (01) | DRG 753 ==
LOC: HO.ED 06-06 16:59 → HO.PM5 06-08 16:13
PROVIDERS: Nurse Practitioner Family; Admitting Provider Psychiatry & Neurology Psychiatry; Emergency Provider Emergency Medicine Emergency Medical Services; Visit Provider Clinical Nurse Specialist Psychiatric/Mental Health, Adult
DX: F31.10 Bipolar disorder, current episode manic without psychotic features, unspecified (principal); R45.851 Suicidal ideations; F17.210 Nicotine dependence, cigarettes, uncomplicated; Z59.0 Homelessness; Z20.822 Contact with and (suspected) exposure to COVID-19; Z71.6 Tobacco abuse counseling; F14.10 Cocaine abuse, uncomplicated; Z88.0 Allergy status to penicillin; Z88.2 Allergy status to sulfonamides; Z88.5 Allergy status to narcotic agent; Z88.6 Allergy status to analgesic agent; Z79.51 Long term (current) use of inhaled steroids; Z79.899 Other long term (current) drug therapy
CPT/HCPCS: 0241U; 36415; 80053; 80061; 80178; 80307; 81025; 82077; 82607; 82746; 83036; 84443; 85025; 93005; 94660; 99285

== ENCOUNTER 2021-06-21 20:24 | Inpatient (IN) | payer MEDICAID, SELFPAY ==
--- NOTE | ~2021-06-21 | XR_ITS ---
EXAMINATION: XR chest 1V CLINICAL INFORMATION: Dyspnea COMPARISON: None TECHNIQUE: XR chest 1V Tubes and lines: None Lungs and pleura: Mild atelectasis at lung bases unchanged from prior exam. Lung apices remain clear. Heart and mediastinum: The mediastinum is within normal limits.. Bones/soft tissue: Skeletal structures included are normal for patient's age. XR/XR chest 1V IMPRESSION: Redemonstration of mild probably chronic infiltrate/atelectasis at lung bases. No radiographic evidence of acute pneumonia or failure.
[2021-06-21 20:28] VITALS: BP 138/72; PULSE 87; O2SAT 84
--- NOTE | 2021-06-21 20:35 | ED_ITS ---
HPI - SOB/Dyspnea General Chief Complaint: Dyspnea Stated Complaint: sob asthma copd Time Seen by Provider: 06/21/21 20:30 Source: patient Limitations: no limitations History of Present Illness HPI Narrative: Patient history of COPD been sick for last 3 days got worse today when EMS arrived she was saturating 84% on room air improved after CPAP DuoNeb and IV Solu-Medrol saturating now 94% on CPAP. Patient has not received her COVID vaccine multiple previous COVID test were negative. No fever no chills no rash no abdominal pain no nausea no vomiting Related Data Previous Rx's Medication Instructions Recorded albuterol sulfate 90 mcg/actuation 2 puff INHALATION QID PRN 30 Days 06/15/21 aerosol inhaler #1 g cholecalciferol (vitamin D3) 25 25 mcg PO DAILY 30 Days #30 tab 06/15/21 mcg (1,000 unit) tablet docusate sodium 100 mg capsule 100 mg PO BID PRN 30 Days #60 cap 06/15/21 ferrous sulfate 324 mg (65 mg 324 mg PO DAILY 30 Days #30 tab 06/15/21 iron) tablet,delayed release fluticasone 232 mcg-salmeterol 14 1 inh INHALATION BID 30 Days #1 ea 06/15/21 mcg/actuation breath activated powdr lithium carbonate 300 mg 600 mg PO BID 30 Days #120 tab 06/15/21 tablet,extended release nicotine (polacrilex) 2 mg gum 2 mg BUCCAL Q2H PRN #30 ea 06/15/21 nicotine 21 mg/24 hr daily 21 mg TRANSDERMAL DAILY #30 ea 06/15/21 transdermal patch olanzapine 5 mg tablet 5 mg PO BID #60 tab 06/15/21 omeprazole 20 mg capsule,delayed 20 mg PO DAILY@0630 30 Days #30 cap 06/15/21 release prazosin 1 mg capsule 1 mg PO BEDTIME 30 Days #30 cap 06/15/21 sertraline 50 mg tablet 50 mg PO DAILY #30 tab 06/15/21 trazodone 50 mg tablet 150 mg PO BEDTIME 30 Days #90 tab 06/15/21 valacyclovir 1 gram tablet 1,000 mg PO BID 30 Days #60 tab 06/15/21 (Valtrex) Allergies Allergy/AdvReac Type Severity Reaction Status Date / Time aspirin [Aspirin] Allergy Severe HIVES,THROAT Verified 06/05/21 21:34 SWELLS bee pollen [BEE STINGS] Allergy Severe ANAPHYLAXIS Verified 06/05/21 21:34 diphenhydramine Allergy Severe hives, Verified 06/05/21 21:34 [From BENADRYL ALLERGY] throat swells Penicillins [PCN] Allergy Severe HIVES Verified 06/05/21 21:34 THROAT SWELLS Sulfa (Sulfonamide Allergy Intermediate HIVES Verified 06/05/21 21:34 Antibiotics) [SULFA (SULFONAMIDE ANTIBIOTICS)] tramadol [TRAMADOL] Allergy Intermediate ITCHING Verified 06/05/21 21:34 latex [LATEX] Allergy Unknown UNKNOWN Verified 06/05/21 21:34 penicillin G Allergy Unknown Unknown Verified 06/05/21 21:34 levofloxacin [From Levaquin] Allergy Hives Verified 06/05/21 21:34 bee stings Allergy Unknown Unknown Uncoded 06/05/21 21:34 DairyCare Allergy Unknown Unknown Uncoded 06/05/21 21:34 sulfa drugs Allergy Unknown Unknown Uncoded 06/05/21 21:34 Review of Systems Review of Systems: Constitutional : No Weight loss, No Fever, No Chills ENT/Mouth : No sore throat, No Rhinorrhea Eyes: No Eye Pain, No Swelling Cardiovascular : No Chest Pain, no palpitations Respiratory : + Cough, No Sputum, ++ shortness of breath Gastrointestinal : no Nausea, No Vomiting, No Diarrhea, No abdominal Pain, no black stools Genitourinary : No Dysuria, No Urinary Frequency Musculoskeletal : No joint pain, No Myalgias, No Joint Swelling Skin : No Skin Lesions, No rash Neuro : No Weakness, No Numbness, No Dizziness, No Headache Psych : No Anxiety/Panic, No Depression Heme/Lymph: No Bruising, No Lymphadenopathy Endocrine : No Polyuria, No Polydipsia All other systems reviewed and are negative PMFSH Past Medical History Medical History Asthma exacerbation in COPD Bipolar disorder Bipolar I disorder Borderline personality disorder Borderline personality disorder COPD (chronic obstructive pulmonary disease) Depression Drug abuse Herpes Intermittent explosive disorder FABIOLA (obstructive sleep apnea) Post traumatic stress disorder (PTSD) PTSD (post-traumatic stress disorder) PTSD (post-traumatic stress disorder) Tobacco use Surgical History History of ankle surgery History of appendectomy History of back surgery Hx of cholecystectomy Family History Family History Mother COPD (chronic obstructive pulmonary disease) Social History Social History Household Members: None Household Members Other:: Pt states she hangs out with a male friend and a female friend Housing: Homeless Do you presently have visiting nurse or other home services: No Unable to assess alcohol history related to: Unknown Alcohol intake: unknown Patient Tobacco Use Status: Current everyday Tobacco user Tobacco use type: Cigarette Cigarette Packs Per Day: 1 Cigarettes Per Day: 20.0 Years Smoked: 17 e-Cigarette/Vaping Use: Never Used Second Hand Smoke Exposure: Yes Substance Use Type: Crack/Cocaine Advance Directives: No Advance Directives Information Provided: No Advance Directives Date on File: 04/08/21 Patient : No service: No Current occupational status: unemployed Sexual orientation: Did not discuss Physical Exam Vital Signs: Vital Signs: Last Vital Signs Temp 98.3 F 06/21/21 20:39 Pulse 88 06/21/21 22:41 Resp 19 06/21/21 22:41 BP 104/74 06/21/21 22:41 Pulse Ox 84 L 06/21/21 22:41 Oxygen Flow Rate 4 06/21/21 20:39 Body Mass Index 35.5 Appearance: Alert. Oriented X3. In moderate respiratory distress on CPAP Eyes: No pallor or icterus ENT: Pharynx normal. Oral Mucosa moist Neck: Normal inspection. Neck supple. CVS: Normal heart rate and rhythm. Pulses normal. Respiratory: Moderate respiratory distress. Equal air entry bilateral, bilateral wheezing and rhonchi occasional crackles bilateral Abdomen: Soft and nontender. Bowel sounds are present, no mass palpable, no CVA tenderness Skin: Skin warm and dry. Normal skin color. Normal skin turgor. Extremities: No lower extremity edema. No calf tenderness Neuro: Oriented X 3. MDM - SOB/Dyspnea MDM Narrative Medical decision making narrative: Patient with severe COPD with history of cocaine use been here frequently for COPD exacerbation chest x-ray negative COVID negative been sick for last 3 days improved after nebulizing treatment desaturated again and removed from the oxygen to 84%. On nasal cannula 4lpm saturating 94%. Will admit patient for COPD with hypoxia. No signs of infection at this time Differential Diagnosis Differential diagnosis: Likely acute exacerbation of chronic obstructive airways disease Medical Records Attestation: I reviewed the patient's medical records. Lab Data Attestation: I reviewed the patient's lab results. Result diagrams: 06/21/21 21:02 06/21/21 21:02 Labs: Lab Results 06/21/21 06/21/21 06/21/21 Range/Units 21:02 21:02 21:02 WBC 9.0 (4.8-10.8) X10*3/uL RBC 3.84 L (4.20-5.50) X10*6/uL Hgb 11.6 L (12.0-16.0) g/dl Hct 35.3 L (37-47) % MCV 91.9 (80-98) fL MCH 30.2 (27.0-33.0) pg MCHC 32.9 (31.0-35.0) g/dl RDW 13.4 (11.0-16.0) % Plt Count 278 (160-400) X10*3/uL MPV 9.7 (9.4-12.3) fL Immature Gran % (Auto) 0.2 (0.0-0.4) % Neut % (Auto) 64.8 (45-73) % Lymph % (Auto) 27.0 (20-40) % Crane % (Auto) 6.0 (2-11) % Eos % (Auto) 1.3 (0-4) % Baso % (Auto) 0.7 (0-2) % Lymph # (Auto) 2.4 (1.2-4.9) X10*3/uL [place] # (Auto) 0.5 (0.1-1.2) X10*3/uL Eos # (Auto) 0.1 (0.0-0.4) X10*3/uL Baso # (Auto) 0.1 (0.0-0.2) X10*3/uL Abs Immat Gran (auto) 0.02 (0.00-0.03) X10*3/uL Absolute Neuts (auto) 5.9 (2.0-8.3) X10*3/uL Absolute Nucleated RBC 0.000 (0.0-0.012) X10*3/uL Nucleated RBC % (auto) 0.0 (0.0-0.2) /100WBC Sodium 145 (135-145) mmol/L Potassium 3.9 (3.3-5.1) mmol/L Chloride 109 H (96-108) mmol/L Carbon Dioxide 26 (22-29) mmol/L Anion Gap 14 (12-20) BUN 11 (9-16) mg/dL Creatinine 0.85 (0.5-1.4) mg/dL Estim Creat Clear Calc 94.4 Estimated GFR > 60 Random Glucose 114 (60-115) mg/dL Lactic Acid (0.5-2.0) mmol/L Calcium 9.1 (8.4-10.2) mg/dL COVID-19 (ENDY) Negative (Negative) COVID-19 Clin Com See Note 06/21/21 Range/Units 21:02 WBC (4.8-10.8) X10*3/uL RBC (4.20-5.50) X10*6/uL Hgb (12.0-16.0) g/dl Hct (37-47) % MCV (80-98) fL MCH (27.0-33.0) pg MCHC (31.0-35.0) g/dl RDW (11.0-16.0) % Plt Count (160-400) X10*3/uL MPV (9.4-12.3) fL Immature Gran % (Auto) (0.0-0.4) % Neut % (Auto) (45-73) % Lymph % (Auto) (20-40) % [place]ane % (Auto) (2-11) % Eos % (Auto) (0-4) % Baso % (Auto) (0-2) % Lymph # (Auto) (1.2-4.9) X10*3/uL [place] # (Auto) (0.1-1.2) X10*3/uL Eos # (Auto) (0.0-0.4) X10*3/uL Baso # (Auto) (0.0-0.2) X10*3/uL Abs Immat Gran (auto) (0.00-0.03) X10*3/uL Absolute Neuts (auto) (2.0-8.3) X10*3/uL Absolute Nucleated RBC (0.0-0.012) X10*3/uL Nucleated RBC % (auto) (0.0-0.2) /100WBC Sodium (135-145) mmol/L Potassium (3.3-5.1) mmol/L Chloride (96-108) mmol/L Carbon Dioxide (22-29) mmol/L Anion Gap (12-20) BUN (9-16) mg/dL Creatinine (0.5-1.4) mg/dL Estim Creat Clear Calc Estimated GFR Random Glucose (60-115) mg/dL Lactic Acid 0.7 (0.5-2.0) mmol/L Calcium (8.4-10.2) mg/dL COVID-19 (ENDY) (Negative) COVID-19 Clin Com Discharge Plan Discharge Clinical Impression: Hypoxemia COPD (chronic obstructive pulmonary disease) Qualifiers: COPD type: chronic bronchitis Chronic bronchitis type: mucopurulent Qualified Code(s): J41.1 - Mucopurulent chronic bronchitis Patient Disposition: Admitted As Inpatient
[2021-06-21 20:39] VITALS: BP 127/73; PULSE 91; RESP 24; TEMP 36.8; O2SAT 94; BMI 35.5
[2021-06-21] MEDS: Albuterol Sulfate (0.083%) 2.5 MG/3 ML VIAL.NEB 7.5 MG INHALE (20:53)
[2021-06-21 20:54] VITALS: PULSE 81; O2SAT 97
[2021-06-21 21:08] LABS: MANUAL DIFF FLAG NO
[2021-06-21 21:10] LABS: Basophils Absolute Auto 0.1 X10*3/uL (0.0-0.2); Basophils Percent Auto 0.7 % (0-2); Eosinophils Absolute Auto 0.1 X10*3/uL (0.0-0.4); Eosinophils Percent Auto 1.3 % (0-4); Hematocrit 35.3 % (37-47); Hemoglobin 11.6 g/dl (12.0-16.0); Imm Gran Abs Auto 0.02 X10*3/uL (0.00-0.03); Imm Gran Pct Auto 0.2 % (0.0-0.4); Lymphocytes Absolute Auto 2.4 X10*3/uL (1.2-4.9); Mean Corpuscular HGB Conc 32.9 g/dl (31.0-35.0); Mean Corpuscular Hemoglobin 30.2 pg (27.0-33.0); Mean Corpuscular Volume 91.9 fL (80-98); Mean Platelet Volume 9.7 fL (9.4-12.3); Monocytes Absolute Auto 0.5 X10*3/uL (0.1-1.2); Neutrophils Absolute Auto 5.9 X10*3/uL (2.0-8.3); Neutrophils Percent Auto 64.8 % (45-73); Platelet Count 278 X10*3/uL (160-400); Red Blood Count 3.84 X10*6/uL (4.20-5.50); Red Cell Distribution Width 13.4 % (11.0-16.0)
[2021-06-21 21:21] LABS: COVID-19 Test Negative (Negative)
[2021-06-21 21:26] LABS: Lactic Acid 0.7 mmol/L (0.5-2.0)
[2021-06-21 21:28] LABS: Anion Gap 14 (12-20); Blood Urea Nitrogen 11 mg/dL (9-16); Calcium 9.1 mg/dL (8.4-10.2); Carbon Dioxide 26 mmol/L (22-29); Chloride 109 mmol/L (96-108); Creatinine Clr Calc Pharmacy 94.4; Estimated Glomerular Filt Rate > 60; Glucose Random 114 mg/dL (60-115); Potassium 3.9 mmol/L (3.3-5.1); Sodium 145 mmol/L (135-145)
[2021-06-21 22:41] VITALS: BP 104/74; PULSE 88; RESP 19; O2SAT 84
--- NOTE | 2021-06-21 22:41 | PC.NURSE ---
PT PLACED ON 4 LPM NC, ROOM AIR SPO2 84% WHILE ASLEEP. SPO2 IMPROVED TO 90% ON 4 LPM.
[2021-06-22] VITALS (10 sets, daily range): BP systolic 112–141; BP diastolic 55–83; PULSE 77–88; RESP 16–22; TEMP 36.4–36.7; O2SAT 93–96
--- NOTE | 2021-06-22 | ECG_ITS ---
Test Reason : chest pain Blood Pressure : / mmHG Vent. Rate : 077 BPM Atrial Rate : 077 BPM P-R Int : 134 ms QRS Dur : 086 ms QT Int : 406 ms P-R-T Axes : 055 034 031 degrees QTc Int : 459 ms Normal sinus rhythm Possible Left atrial enlargement Borderline ECG When compared with ECG of 05-JUN-2021 22:19, No significant change was found Referred By: Katelyn Macias Electronically Signed By:KEMAR BADILLO
--- NOTE | 2021-06-22 00:25 | PC.NURSE ---
PT REMAINS ALERT AND RESTING IN STRETCHER IN NAD. PT ALERT, RESPIRATIONS EASY, N/L. SKIN W/D. PT AWAITING FOR POSSIBLE ADMISSION.
--- NOTE | 2021-06-22 02:15 | PM.IMHP ---
History of Present Illness Date of Service: 06/22/21 Chief Complaint: Shortness of breath 51-year-old female with history of COPD (on room air), tobacco use disorder, bipolar disorder, depression, posttraumatic stress disorder, prior history of cocaine use, who presented with shortness of breath. History is from the patient and from ED notes. Patient endorses that she started having shortness of breath 3 days ago, but it continued to become worse. To the point where she was dyspneic on exertion, wheezing, and had cough that was productive of scant yellow/green sputum. She also felt ?hot and cold?. Otherwise, she denies chest pain, diarrhea, constipation, abdominal pain. She does endorse a sick contact in a friend. In the ED, vitals were significant for hypoxia, satting 84% on room air, requiring 4 L nasal cannula. Otherwise, vitals are unremarkable. Labs were fairly unremarkable, including WBC of 11, normal lactic acid, normal renal function, COVID negative. x-ray was negative for acute pathology. The patient had been treated with Solu-Medrol EN route to the hospital. In the ED, she did receive albuterol. She is being admitted for COPD exacerbation, hypoxia. Review of Systems Review of Systems: Constitutional: ?No Weight Change, No Fever, No Chills, No Night Sweats. Positive for Fatigue, Malaise ENT/Mouth: ?No Hearing Changes, No Ear Pain, No Nasal Congestion, No Sinus Pain, No Hoarseness, No sore throat, No Rhinorrhea, No Swallowing Difficulty Eyes: ?No Eye Pain, No Swelling, No Redness, No Discharge, No Vision Changes Cardiovascular: ?No Chest Pain, No SOB, No Orthopnea, No Claudication, No Edema, No Palpitations Respiratory: ?Positive for cough, with slightly yellow/green sputum, with Wheezing and Dyspnea and Dyspnea on Exertion Gastrointestinal: ?No Nausea, No Vomiting, No Diarrhea, No Constipation, No Pain, No Heartburn, No Anorexia, No Dysphagia, No Hematochezia, No Melena, No Jaundice Genitourinary: ?No Dysuria, No Urinary Frequency, No Hematuria, No Flank Pain Musculoskeletal: ?No Joint Swelling, No Joint Stiffness, No Back Pain, No Neck Pain Skin: ?No Skin Lesions, No Pruritis Neuro: ?No Weakness, No Numbness, No Paresthesias, No Loss of Consciousness, No Syncope, No Dizziness, No Headache, No Coordination Changes, No Recent Falls Psych: ?No Anxiety/Panic, No Depression, No Insomnia, No Personality Changes, No Delusions, No Suicidal Ideation /Homicidal Ideation /Auditory Hallucinations /Visual Hallucinations Heme/Lymph: ?No Bruising, No Bleeding, No Transfusions History, No Lymphadenopathy Endocrine: ?No Polyuria, No Polydipsia, No Temperature Intolerance [facility] Medical History Asthma exacerbation in COPD Bipolar disorder Bipolar I disorder Borderline personality disorder Borderline personality disorder COPD (chronic obstructive pulmonary disease) Depression Drug abuse Herpes Intermittent explosive disorder FABIOLA (obstructive sleep apnea) Post traumatic stress disorder (PTSD) PTSD (post-traumatic stress disorder) PTSD (post-traumatic stress disorder) Tobacco use Family History Mother COPD (chronic obstructive pulmonary disease) Surgical History History of ankle surgery History of appendectomy History of back surgery Hx of cholecystectomy Social History Household Members: None Household Members Other:: Pt states she hangs out with a male friend and a female friend Housing: Homeless Do you presently have visiting nurse or other home services: No Unable to assess alcohol history related to: Unknown Alcohol intake: unknown Patient Tobacco Use Status: Current everyday Tobacco user Tobacco use type: Cigarette Cigarette Packs Per Day: 1 Cigarettes Per Day: 20.0 Years Smoked: 17 e-Cigarette/Vaping Use: Never Used Second Hand Smoke Exposure: Yes Substance Use Type: Crack/Cocaine Advance Directives: No Advance Directives Information Provided: No Advance Directives Date on File: 04/08/21 Patient : No service: No Current occupational status: unemployed Sexual orientation: Did not discuss Meds Allergies Allergy/AdvReac Type Severity Reaction Status Date / Time aspirin [Aspirin] Allergy Severe HIVES,THROAT Verified 06/05/21 21:34 SWELLS bee pollen [BEE STINGS] Allergy Severe ANAPHYLAXIS Verified 06/05/21 21:34 diphenhydramine Allergy Severe hives, Verified 06/05/21 21:34 [From BENADRYL ALLERGY] throat swells Penicillins [PCN] Allergy Severe HIVES Verified 06/05/21 21:34 THROAT SWELLS Sulfa (Sulfonamide Allergy Intermediate HIVES Verified 06/05/21 21:34 Antibiotics) [SULFA (SULFONAMIDE ANTIBIOTICS)] tramadol [TRAMADOL] Allergy Intermediate ITCHING Verified 06/05/21 21:34 latex [LATEX] Allergy Unknown UNKNOWN Verified 06/05/21 21:34 penicillin G Allergy Unknown Unknown Verified 06/05/21 21:34 levofloxacin [From Levaquin] Allergy Hives Verified 06/05/21 21:34 bee stings Allergy Unknown Unknown Uncoded 06/05/21 21:34 DairyCare Allergy Unknown Unknown Uncoded 06/05/21 21:34 sulfa drugs Allergy Unknown Unknown Uncoded 06/05/21 21:34 Active Medications: Current Medications Generic Name Dose Route Start Last Admin Trade Name Freq PRN Reason Stop Dose Admin Acetaminophen 650 mg 06/22/21 01:10 Acetaminophen 325 Mg Tablet PO Q6H PRN Pain, Mild (Pain Scale 1-3) Albuterol/Ipratropium 3 ml 06/22/21 08:00 Albuterol/Iprat 2.5/0.5mg 3 Ml Ampul.Neb INHALE RQ6H WHILE AWAKE TEJA Albuterol/Ipratropium 3 ml 06/22/21 02:13 Albuterol/Iprat 2.5/0.5mg 3 Ml Ampul.Neb INHALE RQ4H PRN Shortness of Breath/Wheezing Methylprednisolone Sodium Succinate 60 mg 06/22/21 08:00 Methylprednisolone Sod Succ 125 Mg/2 Ml Vial IVPUSH Q6H TEJA Pantoprazole Sodium 40 mg 06/22/21 06:30 Pantoprazole Sodium 40 Mg/10 Ml Vial IVPUSH BID@0630,1630 [facility] Sodium Chloride 3 ml 06/22/21 08:00 0.9 % Sodium Chloride Flush 3 Ml Syringe IVFLUSH QSHIFT [facility] Physical Exam Vital Signs and Narrative: Vital Signs: Last Vital Signs Temp 98.3 F 06/21/21 20:39 Pulse 78 06/22/21 00:43 Resp 21 H 06/22/21 00:43 BP 128/83 06/22/21 00:43 Pulse Ox 94 06/22/21 00:43 Oxygen Flow Rate 4 06/21/21 20:39 Body Mass Index 35.5 GENERAL APPEARANCE: Well developed, obese, alert and cooperative, and appears to be in no acute distress. HEAD: Normocephalic. EYES: PERRL, EOMI. Vision is grossly intact. EARS: Hearing grossly intact. NOSE: No nasal discharge. THROAT: Oral cavity and pharynx normal. No inflammation, swelling, exudate, or lesions. NECK: Neck supple, non-tender without lymphadenopathy, masses or thyromegaly. CARDIAC: Normal S1 and S2. No S3, S4 or murmurs. Rhythm is regular. There is no peripheral edema, cyanosis or pallor. Extremities are warm and well perfused. LUNGS: Patient with moderate wheeizng diffusely. No rales, rhonchi. ABDOMEN: Positive bowel sounds. Soft, nondistended, nontender. No guarding or rebound. No masses. MUSKULOSKELETAL: Examination of both shoulders, elbows, wrists, ankles, knees, legs, and hips reveals normal range of motion, normal sensation without tenderness, swelling, discoloration, weakness or deformity. Peripheral pulses intact. NEUROLOGICAL: CN II-XII intact. Strength and sensation symmetric and intact throughout. SKIN: Skin normal color, texture and turgor with no lesions or eruptions. PSYCHIATRIC: The mental examination revealed the patient was oriented to person, place, and time. The patient was able to demonstrate good judgement and reason, without hallucinations, abnormal affect or abnormal behaviors during the examination. Results Labs CBC and Chem 7: 06/21/21 21:02 06/21/21 21:02 Labs: Laboratory Results - last 24 hr 06/21/21 06/21/21 06/21/21 21: 21: 21:02 MCV 91.9 MCH 30.2 MCHC 32.9 RDW 13.4 Plt Count 278 MPV 9.7 Immature Gran % (Auto) 0.2 Neut % (Auto) 64.8 Lymph % (Auto) 27.0 [place] % (Auto) 6.0 Eos % (Auto) 1.3 Baso % (Auto) 0.7 Lymph # (Auto) 2.4 [place] # (Auto) 0.5 Eos # (Auto) 0.1 Baso # (Auto) 0.1 Abs Immat Gran (auto) 0.02 Absolute Neuts (auto) 5.9 Absolute Nucleated RBC 0.000 Nucleated RBC % (auto) 0.0 Anion Gap 14 Estim Creat Clear Calc 94.4 Estimated GFR > 60 Random Glucose 114 Lactic Acid Calcium 9.1 COVID-19 (ENDY) Negative COVID-19 Clin Com See Note 06/21/21 21:02 MCV MCH MCHC RDW Plt Count MPV Immature Gran % (Auto) Neut % (Auto) Lymph % (Auto) [place] % (Auto) Eos % (Auto) Baso % (Auto) Lymph # (Auto) [place] # (Auto) Eos # (Auto) Baso # (Auto) Abs Immat Gran (auto) Absolute Neuts (auto) Absolute Nucleated RBC Nucleated RBC % (auto) Anion Gap Estim Creat Clear Calc Estimated GFR Random Glucose Lactic Acid 0.7 Calcium COVID-19 (ENDY) COVID-19 Clin Com Imaging Radiologist's Impressions: Impressions Chest X-Ray 06/21/21 21:05 IMPRESSION: Redemonstration of mild probably chronic infiltrate/atelectasis at lung bases. No radiographic evidence of acute pneumonia or failure. Assessment and Plan (1) Hypoxemia: Status: Acute (2) COPD exacerbation: Status: Acute (3) Post traumatic stress disorder (PTSD): Status: Chronic (4) Bipolar disorder: Qualifiers: Active/Remission status: currently active Current bipolar episode type: manic Current episode severity: unspecified Qualified Code(s): F31.10 - Bipolar disorder, current episode manic without psychotic features, unspecified Status: Acute (5) Cocaine use disorder: Status: Acute (6) Tobacco use disorder: Status: Acute Hypoxemia: -secondary to COPD exacerbation -treatment as per below -patient endorses that she does not use oxygen at home. -currently on 4 L nasal cannula -COVID negative COPD exacerbation: -continue Solu-Medrol, DuoNebs -chest x-ray negative for pneumonia -COVID Negative PTSD, bipolar disorder: -continue medications History of cocaine use: -patient denies illicit drug use to me, but per her electronic medical records, she does have history of cocaine use Tobacco use disorder: -nicotine patch ordered FEN: Cardiac diet CODE STATUS: FULL CODE DISPO: Admit to Inpatient Quality Stroke Does the patient have a stroke diagnosis?: No VTE Prior VTE?: No VTE Risk Level:: Medical - moderate - high VTE Device Contraindication: N/A - Device Ordered VTE Drug Contraindication: Treatment Not Indicated
--- NOTE | 2021-06-22 02:19 | PC.NURSE ---
PT UP TO COMMODE AND RETURNS TO STRETCHER W/O DIFFICULTY. VS OBTAINED. PT ALERT, RESPIRATIONS EASY, N/L SKIN W/D. WILL CONTINUE TO MONITOR PT.
--- NOTE | 2021-06-22 04:29 | PC.NURSE ---
MED REC DONE. PT AWAITING FOR ROOM ASSIGNMENT. PT IN NAD.
--- NOTE | 2021-06-22 04:45 | PC.NURSE ---
PT RESTING IN STRETCHER IN NAD. PT WAKES TO VERAL STIMULI, RESPIRATIONS EASY, N/L. SKIN W/D. WILL CONTINUE TO MONITOR PT
[2021-06-22] MEDS: Pantoprazole Sodium 40 MG/10 ML VIAL IVPUSH (05:27)
[2021-06-22 07:09] LABS: MANUAL DIFF FLAG NO
[2021-06-22 07:20] LABS: Basophils Percent Auto 0.2 % (0-2); Hematocrit 37.1 % (37-47); Hemoglobin 11.9 g/dl (12.0-16.0); Imm Gran Abs Auto 0.04 X10*3/uL (0.00-0.03); Imm Gran Pct Auto 0.4 % (0.0-0.4); Lymphocytes Percent Auto 9.4 % (20-40); Mean Corpuscular HGB Conc 32.1 g/dl (31.0-35.0); Mean Corpuscular Hemoglobin 29.6 pg (27.0-33.0); Mean Corpuscular Volume 92.3 fL (80-98); Monocytes Absolute Auto 0.1 X10*3/uL (0.1-1.2); Monocytes Percent Auto 1.2 % (2-11); Neutrophils Percent Auto 88.8 % (45-73); Platelet Count 281 X10*3/uL (160-400); Red Blood Count 4.02 X10*6/uL (4.20-5.50); Red Cell Distribution Width 13.2 % (11.0-16.0); White Blood Count 10.2 X10*3/uL (4.8-10.8)
[2021-06-22 07:34] LABS: Anion Gap 13 (12-20); Blood Urea Nitrogen 12 mg/dL (9-16); Calcium 9.2 mg/dL (8.4-10.2); Carbon Dioxide 24 mmol/L (22-29); Chloride 109 mmol/L (96-108); Creatinine Clr Calc Pharmacy 129.4; Estimated Glomerular Filt Rate > 60; Glucose Random 137 mg/dL (60-115); Potassium 4.7 mmol/L (3.3-5.1); Sodium 141 mmol/L (135-145)
[2021-06-22] MEDS: Albuterol/Iprat 2.5/0.5MG 3 ML AMPUL.NEB INHALE ×2 (07:58→14:35)
[2021-06-22] MEDS: Nicotine 21 MG PATCH.TD24 TRANSDERMA (08:18)
[2021-06-22] MEDS: 0.9 % Sodium Chloride Flush 3 ML SYRINGE IVFLUSH ×3 (08:18→20:19)
[2021-06-22] MEDS: methylPREDNISolone Sod Succ 125 MG/2 ML VIAL 60 MG IVPUSH ×2 (08:18→20:18)
--- NOTE | 2021-06-22 10:03 | P.PNIM_ITS ---
Subjective Subjective Date of Service: 06/22/21 Interval History: seen and examined this AM feels lousy still sob Review of Systems General - no fevers or chills Cardiovascular - no chest pain Respiratory -+SOB Abdominal- no abdominal pain, nausea, vomiting, diarrhea Physical Exam Vital Signs: Vital Signs: Last Vital Signs Temp 97.6 F 06/22/21 02:18 Pulse 88 06/22/21 08:16 Resp 22 H 06/22/21 08:16 BP 113/65 06/22/21 08:16 Pulse Ox 93 06/22/21 08:16 Oxygen Flow Rate 4 06/21/21 20:39 Body Mass Index 35.5 Const: Other: General - no acute distress, appears comfortable Cardiovascular - regular rate and rhythm, S1-S2 Lungs - scattered wheezing, poor entry overall, mild tachypnea with conversation Abdomen - soft, nontender, no rebound or guarding Extremities - no edema bilaterally Neuro - awake and alert, no focal deficits Objective Data Current Medications Generic Name Dose Route Start Last Admin Trade Name Freq PRN Reason Stop Dose Admin Acetaminophen 650 mg 06/22/21 01:10 Acetaminophen 325 Mg Tablet PO Q6H PRN Pain, Mild (Pain Scale 1-3) Albuterol/Ipratropium 3 ml 06/22/21 08:00 06/22/21 07:58 Albuterol/Iprat 2.5/0.5mg 3 Ml Ampul.Neb INHALE 3 ml RQ6H WHILE AWAKE TEJA Administration Albuterol/Ipratropium 3 ml 06/22/21 02:13 Albuterol/Iprat 2.5/0.5mg 3 Ml Ampul.Neb INHALE RQ4H PRN Shortness of Breath/Wheezing Methylprednisolone Sodium Succinate 60 mg 06/22/21 08:00 06/22/21 08:18 Methylprednisolone Sod Succ 125 Mg/2 Ml Vial IVPUSH 60 mg Q6H TEJA Administration Nicotine 21 mg 06/22/21 09:00 06/22/21 08:18 Nicotine 21 Mg Patch.Td24 TRANSDERMA 21 mg DAILY TEJA Administration Omeprazole 20 mg 06/23/21 06:30 Omeprazole 20 Mg Capsule. PO DAILY@0630 TEJA Sodium Chloride 3 ml 06/22/21 08:00 06/22/21 08:18 0.9 % Sodium Chloride Flush 3 Ml Syringe IVFLUSH 3 ml QSHIFT TEJA Administration Labs CBC & Chem 7: 06/22/21 07:04 06/22/21 07:04 Labs: Laboratory Results - last 24 hr 06/21/21 06/21/21 06/21/21 21:02 21:02 21:02 MCV 91.9 MCH 30.2 MCHC 32.9 RDW 13.4 Plt Count 278 MPV 9.7 Immature Gran % (Auto) 0.2 Neut % (Auto) 64.8 Lymph % (Auto) 27.0 [place] % (Auto) 6.0 Eos % (Auto) 1.3 Baso % (Auto) 0.7 Lymph # (Auto) 2.4 [place] # (Auto) 0.5 Eos # (Auto) 0.1 Baso # (Auto) 0.1 Abs Immat Gran (auto) 0.02 Absolute Neuts (auto) 5.9 Absolute Nucleated RBC 0.000 Nucleated RBC % (auto) 0.0 Anion Gap 14 Estim Creat Clear Calc 94.4 Estimated GFR > 60 Random Glucose 114 Lactic Acid Calcium 9.1 COVID-19 (ENDY) Negative COVID-19 Clin Com See Note 06/21/21 06/22/21 06/22/21 21:02 07:04 07:04 MCV 92.3 MCH 29.6 MCHC 32.1 RDW 13.2 Plt Count 281 MPV 10.0 Immature Gran % (Auto) 0.4 Neut % (Auto) 88.8 H Lymph % (Auto) 9.[address] [place] % (Auto) 1.2 L Eos % (Auto) 0.0 Baso % (Auto) 0.2 Lymph # (Auto) 1.[address] [place] # (Auto) 0.1 Eos # (Auto) 0.0 Baso # (Auto) 0.0 Abs Immat Gran (auto) 0.04 H Absolute Neuts (auto) 9.0 H Absolute Nucleated RBC 0.000 Nucleated RBC % (auto) 0.0 Anion Gap 13 Estim Creat Clear Calc 129.4 Estimated GFR > 60 Random Glucose 137 H Lactic Acid 0.7 Calcium 9.2 COVID-19 (ENDY) COVID-19 Clin Com Assessment and Plan (1) COPD exacerbation: Status: Acute Assessment and Plan: This is a 51 yo F admitted for: 1. Acute respiratory failure with hypoxia saturation 84% on RA, improved with 3-4L by NC due to COPD exacerbation 2. Acute COPD exacarbation still actively smoking, likely the casue continue high dose IV steroids continue bronchodilators - scheduled and PRN 3. Mood continue baseline meds 4. Tobacco use strongly encouraged cessation as she has had atleast 3-4 admission for this in 2020. Full Code DVT pptx, Lovenox Quality Stroke Does the patient have a stroke diagnosis?: No VTE Prior VTE?: No VTE Risk Level:: Medical - moderate - high VTE Device Contraindication: N/A - Device Ordered VTE Drug Contraindication: Treatment Not Indicated
[2021-06-22] MEDS: Acetaminophen 325 MG TABLET 650 MG PO ×2 (11:17→20:17)
[2021-06-22] MEDS: Enoxaparin Sodium 40 MG/0.4 ML SYRINGE SUBCUT (11:17)
--- NOTE | 2021-06-22 11:20 | PC.NURSE ---
PATIENT A&OX3, VSS, PT MEDICATED FOR PAIN PER ORDER, COMPUTER TRAINING SPECIALIST NSR 80S, WILL CONTINUE TO MONITOR.
--- NOTE | 2021-06-22 13:57 | PC.NURSE ---
patient c/o chest/arm/upper back pain, dr. norman notified who feels this is muscular in nature, will attempt oxycodone per provider
[2021-06-22] MEDS: oxyCODONE HCl Immed Release 5 MG TABLET PO ×2 (14:03→22:55)
--- NOTE | 2021-06-22 14:04 | PC.NURSE ---
PATIENT MEDICATED PER ORDER
--- NOTE | 2021-06-22 16:12 | PC.NURSE ---
PATIENT REQUESTED TO GET WASHED UP, PT GIVEN BATH WIPES
--- NOTE | 2021-06-22 16:14 | PC.NURSE ---
PATIENTS BAG CHECKER CONTINUES TO BE NSR.
--- NOTE | 2021-06-22 16:52 | PC.NURSE ---
called floor to give report, they will call back.
[2021-06-23] VITALS (8 sets, daily range): BP systolic 104–148; BP diastolic 65–77; PULSE 59–87; RESP 18–20; TEMP 36.3–36.9; O2SAT 90–98
[2021-06-23] MEDS: Omeprazole 20 MG CAPSULE.DR PO (05:10)
[2021-06-23] MEDS: Albuterol/Iprat 2.5/0.5MG 3 ML AMPUL.NEB INHALE ×2 (07:45→20:32)
[2021-06-23] MEDS: Nicotine 21 MG PATCH.TD24 TRANSDERMA (07:54)
[2021-06-23] MEDS: methylPREDNISolone Sod Succ 125 MG/2 ML VIAL 60 MG IVPUSH ×2 (07:54→21:54)
[2021-06-23] MEDS: 0.9 % Sodium Chloride Flush 3 ML SYRINGE IVFLUSH ×3 (07:54→21:55)
--- NOTE | 2021-06-23 09:52 | MHC.CM.PN ---
CM met with Patient at bedside. Patient is homeless until 07/01/21, when she will get an efficiency apartment on [address] Patient at dc wants to return to [address] in [place] (Day Program that opens at noon/recovery support setting). CM has initiated and will follow for dc planning. Patient has no PCP, No DME(feels she needs a walker), and does not typically require O2. Patient had a recent stay on [facility] and may benefit from a care Team Consult.
--- NOTE | 2021-06-23 10:36 | P.PNIM_ITS ---
Progress Note: A&P (1) COPD exacerbation: Status: Acute Assessment and Plan: This is a 51 yo F admitted for: Acute respiratory failure with hypoxia secondary to COPD exacerbation Improving due to COPD exacerbation change to po prednisone, continue nebs Mood continue baseline meds Tobacco use strongly encouraged cessation as she has had atleast 3-4 admission for this in 2020. DISPO Likely DC tomorrow when medically stable Full Code DVT pptx, Lovenox Subjective Subjective Date of Service: 06/23/21 Interval History: Follow up COPD Still with some sob and wheezing Physical Exam Vital Signs: Vital Signs: Last Vital Signs Temp 97.8 F 06/23/21 07:51 Pulse 59 06/23/21 07:51 Resp 18 06/23/21 07:51 BP 124/73 06/23/21 07:51 Pulse Ox 98 06/23/21 07:51 Oxygen Flow Rate 4 06/21/21 20:39 Body Mass Index 35.5 Appearing in no acute distress lung sounds mild exp wheezing heart regular rate rhythm, clear S1, S2 positive bowel sounds, abdomen is soft, nontender neuro patient is alert x3, no focal deficits Objective Data Current Medications Generic Name Dose Route Start Last Admin Trade Name Freq PRN Reason Stop Dose Admin Acetaminophen 650 mg 06/22/21 01:10 06/22/21 20:17 Acetaminophen 325 Mg Tablet PO 650 mg Q6H PRN Administration Pain, Mild (Pain Scale 1-3) Albuterol/Ipratropium 3 ml 06/22/21 08:00 06/23/21 07:45 Albuterol/Iprat 2.5/0.5mg 3 Ml Ampul.Neb INHALE 3 ml RQ6H WHILE AWAKE TEJA Administration Albuterol/Ipratropium 3 ml 06/22/21 02:13 Albuterol/Iprat 2.5/0.5mg 3 Ml Ampul.Neb INHALE RQ4H PRN Shortness of Breath/Wheezing Enoxaparin Sodium 40 mg 06/22/21 12:00 06/22/21 11:17 Enoxaparin Sodium 40 Mg/0.4 Ml Syringe SUBCUT 40 mg Q24H TEJA Administration Methylprednisolone Sodium Succinate 60 mg 06/22/21 21:00 06/23/21 07:54 Methylprednisolone Sod Succ 125 Mg/2 Ml Vial IVPUSH 60 mg BID TEJA Administration Nicotine 21 mg 06/22/21 09:00 06/23/21 07:54 Nicotine 21 Mg Patch.Td24 TRANSDERMA 21 mg DAILY TEJA Administration Omeprazole 20 mg 06/23/21 06:30 06/23/21 05:10 Omeprazole 20 Mg Capsule.Dr PO 20 mg DAILY@0630 TEJA Administration Oxycodone HCl 5 mg 06/22/21 13:57 06/22/21 22:55 Oxycodone Hcl Immed Release 5 Mg Tablet PO 5 mg Q6H PRN Administration Pain, Severe (Pain Scale 7-10) Sodium Chloride 3 ml 06/22/21 08:00 06/23/21 07:54 0.9 % Sodium Chloride Flush 3 Ml Syringe IVFLUSH 3 ml QSHIFT [facility] Administration Labs CBC & Chem 7: 06/22/21 07:04 06/22/21 07:04 Microbiology Microbiology Results: Microbiology 06/21/21 21:02 Blood - Venous Blood Culture - Preliminary No growth after 24 hours. 06/21/21 21:02 Blood - Venous Blood Culture - Preliminary No growth after 24 hours. Quality Stroke Does the patient have a stroke diagnosis?: No VTE Prior VTE?: No VTE Risk Level:: Medical - moderate - high VTE Device Contraindication: N/A - Device Ordered VTE Drug Contraindication: Treatment Not Indicated
[2021-06-23] MEDS: Enoxaparin Sodium 40 MG/0.4 ML SYRINGE SUBCUT (16:08)
[2021-06-23] MEDS: oxyCODONE HCl Immed Release 5 MG TABLET PO (16:08)
[2021-06-24 02:58] VITALS: BP 130/81; PULSE 60; RESP 18; TEMP 37.1; O2SAT 90
[2021-06-24] MEDS: Omeprazole 20 MG CAPSULE.DR PO (05:59)
[2021-06-24 07:59] VITALS: BP 139/72; PULSE 68; RESP 20; TEMP 36.6; O2SAT 94
[2021-06-24] MEDS: Nicotine 21 MG PATCH.TD24 TRANSDERMA (08:27)
[2021-06-24 08:28] VITALS: PULSE 76; O2SAT 96
[2021-06-24] MEDS: 0.9 % Sodium Chloride Flush 3 ML SYRINGE IVFLUSH (08:28)
[2021-06-24] MEDS: Albuterol/Iprat 2.5/0.5MG 3 ML AMPUL.NEB INHALE (08:28)
--- NOTE | 2021-06-24 11:06 | MHC.CM.PN ---
Per ROUNDS discussion, Patient is medically cleared for dc to home today. Patient will return to her Day Program- [facility] in [place] today at 11:30 AM, [place] via [facility] [place]. Patient is aware of the dc plan and eager to leave.
--- NOTE | 2021-06-24 11:10 | PM.DS ---
DS: Providers Provider Date of Service: 06/24/21 Date of admission: 06/22/21 01:10 Primary care physician: Unknown Physician DS: Diagnosis Discharge Diagnosis (1) COPD exacerbation: Status: Acute DS: Medications Discharge Medications Home Medications: Home Medications Medication Instructions Recorded Confirmed prazosin 1 mg capsule 1 mg PO BEDTIME 06/22/21 06/22/21 Previous Rx's Medication Instructions Recorded albuterol sulfate 90 mcg/actuation 2 puff INHALATION QID PRN 30 Days 06/15/21 aerosol inhaler #1 g cholecalciferol (vitamin D3) 25 25 mcg PO DAILY 30 Days #30 tab 06/15/21 mcg (1,000 unit) tablet docusate sodium 100 mg capsule 100 mg PO BID PRN 30 Days #60 cap 06/15/21 ferrous sulfate 324 mg (65 mg 324 mg PO DAILY 30 Days #30 tab 06/15/21 iron) tablet,delayed release fluticasone 232 mcg-salmeterol 14 1 inh INHALATION BID 30 Days #1 ea 06/15/21 mcg/actuation breath activated powdr lithium carbonate 300 mg 600 mg PO BID 30 Days #120 tab 06/15/21 tablet,extended release nicotine (polacrilex) 2 mg gum 2 mg BUCCAL Q2H PRN #30 ea 06/15/21 nicotine 21 mg/24 hr daily 21 mg TRANSDERMAL DAILY #30 ea 06/15/21 transdermal patch olanzapine 5 mg tablet 5 mg PO BID #60 tab 06/15/21 omeprazole 20 mg capsule,delayed 20 mg PO DAILY@0630 30 Days #30 cap 06/15/21 release sertraline 50 mg tablet 50 mg PO DAILY #30 tab 06/15/21 trazodone 50 mg tablet 150 mg PO BEDTIME 30 Days #90 tab 06/15/21 valacyclovir 1 gram tablet 1,000 mg PO BID 30 Days #60 tab 06/15/21 (Valtrex) prednisone 20 mg tablet 40 mg PO DAILY #8 tab 06/23/21 DS: Summary Hospital Course Hospital Course: Admission note HPI 51-year-old female with history of COPD (on room air), tobacco use disorder, bipolar disorder, depression, posttraumatic stress disorder, prior history of cocaine use, who presented with shortness of breath.? History is from the patient and from ED notes. Patient endorses that she started having shortness of breath 3 days ago, but it continued to become worse.? To the point where she was dyspneic on exertion, wheezing, and had cough that was productive of scant yellow/green sputum.? She also felt ?hot and cold?.? Otherwise, she denies chest pain, diarrhea, constipation, abdominal pain.? She does endorse a sick contact in a friend. In the ED, vitals were significant for hypoxia, satting 84% on room air, requiring 4 L nasal cannula.? Otherwise, vitals are unremarkable.? Labs were fairly unremarkable, including WBC of 11, normal lactic acid, normal renal function, COVID negative.? x-ray was negative for acute pathology. The patient had been treated with Solu-Medrol EN route to the hospital.? In the ED, she did receive albuterol.? She is being admitted for COPD exacerbation, hypoxia. Hospital course Of acute hypoxic respiratory failure secondary to COPD exacerbation as her oxygen level dropped below 90s requiring O2 supplement. Treated with IV steroids, bronchodilator nebulizers with good response over the course of hospital stay as she was weaned off the oxygen and became able to ambulate on the room air with no reported shortness of breath or drop or her oxygen levels. Advised to quit smoking. To be discharged on prednisone orally and to follow-up with her PCP as outpatient. Time Spent with Patient Time attestation: Total time spent providing and/or coordinating discharge services: Discharge coordination time: Greater than 30 minutes Quality: Stroke Does the patient have a stroke diagnosis?: No Physical Exam Vital Signs: Vital Signs: Last Vital Signs Temp 97.8 F 06/24/21 07:59 Pulse 76 06/24/21 08:28 Resp 20 06/24/21 07:59 BP 139/72 06/24/21 07:59 Pulse Ox 94 06/24/21 07:59 Oxygen Flow Rate 4 06/21/21 20:39 Body Mass Index 35.5 Const: Other: Constitutional : Alert, oriented, not in distress Neck : Normal inspection, Supple Cardiovascular : RRR, S1 S2, no lower extremity edema Respiratory : Good bilateral air entry, no crackles, wheezes or rhonchi Gastrointestinal: soft, lax, Normal bowel sounds, Non tender Skin : Warm, Dry Neurological : Alert & oriented x3, No focal deficit DS: Data Data Completed and Pending Labs on day of discharge: Preliminary micro results at discharge 06/21/21 21:02 Blood Culture - Preliminary Blood - Venous No growth after 48 hours. 06/21/21 21:02 Blood Culture - Preliminary Blood - Venous No growth after 48 hours. Discharge Plan Discharge Patient Disposition: Home, Self-Care Discharge Diagnosis: COPD exacerbation Referrals: Physician,Unknown [Primary Care Provider] - 1 Week Discharge Medications: New prednisone 20 mg tablet 40 mg PO DAILY Qty: 8 RF: 0 Continued nicotine (polacrilex) 2 mg Gum 2 mg buccal Q2H PRN (Reason: SMOKING CESSATION) Qty: 30 RF: 0 olanzapine 5 mg Tablet 5 mg PO BID Qty: 60 RF: 0 nicotine 21 mg/24 hr Patch 24 Hour 21 mg transdermal DAILY Qty: 30 RF: 0 trazodone 50 mg Tablet 150 mg PO BEDTIME 30 Days Qty: 90 RF: 0 valacyclovir [Valtrex] 1 gram Tablet 1,000 mg PO BID 30 Days Qty: 60 RF: 0 lithium carbonate 300 mg Tablet Extended Release 600 mg PO BID 30 Days Qty: 120 RF: 0 docusate sodium 100 mg Capsule 100 mg PO BID PRN (Reason: constipation) 30 Days Qty: 60 RF: 0 omeprazole 20 mg Capsule,Delayed Release(Dr/Ec) 20 mg PO DAILY@0630 30 Days Qty: 30 RF: 0 albuterol sulfate 90 mcg/actuation HFA aerosol inhaler 2 puff inhalation QID PRN (Reason: wheezing) 30 Days Qty: 1 RF: 0 sertraline 50 mg Tablet 50 mg PO DAILY Qty: 30 RF: 0 cholecalciferol (vitamin D3) 25 mcg (1,000 unit) Tablet 25 mcg PO DAILY 30 Days Qty: 30 RF: 0 ferrous sulfate 324 mg (65 mg iron) Tablet,Delayed Release (Dr/Ec) 324 mg PO DAILY 30 Days Qty: 30 RF: 0 fluticasone propion-salmeterol 232-14 mcg/actuation aerosol powdr breath activated 1 inh inhalation BID 30 Days Qty: 1 RF: 0 prazosin 1 mg capsule 1 mg PO BEDTIME RF: 0 Discharge Orders: Discharge Order (Routine); Ordered 06/24/21 Ordered By: Lisa Herman Diet: advance to usual diet Activity on Discharge: As tolerated Stand Alone Forms: Patient Portal Discharge page Care Plan Goals: Complete resolution of COPD symptoms Health Concerns: COPD exacerbation Plan of Treatment: Follow up with your primary care provider as needed Stop smoking cigarettes Assessment: Continue prednisone for the next few days Use inhalers as prescribed
== END 2021-06-24 11:49 | disposition home or self-care (01) | DRG 140 ==
LOC: HO.ED 23:58 → HO.EDOVER 06-22 01:20 → HO.IMC 06-22 16:40
PROVIDERS: Admitting Provider Internal Medicine; Emergency Provider Internal Medicine; Visit Provider Student in an Organized Health Care Education/Training Program
DX: J44.1 Chronic obstructive pulmonary disease with (acute) exacerbation (principal); J96.01 Acute respiratory failure with hypoxia; Z20.822 Contact with and (suspected) exposure to COVID-19; F17.200 Nicotine dependence, unspecified, uncomplicated; F31.9 Bipolar disorder, unspecified; F43.10 Post-traumatic stress disorder, unspecified; Z79.51 Long term (current) use of inhaled steroids; Z88.2 Allergy status to sulfonamides; Z79.899 Other long term (current) drug therapy
CPT/HCPCS: 36415; 71045; 80048; 83605; 85025; 87040; 87635; 93005; 94640; 94644; 99223; 99285; J1650; J2930

== ENCOUNTER 2021-07-08 14:06 | Inpatient (IN) | payer MEDICAID, SELFPAY ==
[2021-07-08] VITALS (7 sets, daily range): BP systolic 119–126; BP diastolic 57–76; PULSE 80–100; RESP 16–22; TEMP 36.9; O2SAT 87–96; BMI 35.5
--- NOTE | ~2021-07-08 | XR_ITS ---
EXAMINATION: XR KNEE, RIGHT CLINICAL INFORMATION: Pain status post fall COMPARISON: Right knee radiographs 02/07/2020 TECHNIQUE: Four views of the right knee. FINDINGS: There is been progression of degenerative changes with increased narrowing in the patellofemoral compartment as well as the medial compartment. Some posterior patellar osteophytes are seen along with some medial femoral condyle osteophytes. No significant joint effusion is present. No fracture is seen. XR/XR knee RT 3V IMPRESSION: Mild progression of predominantly bicompartmental degenerative changes right knee. No acute finding.
--- NOTE | ~2021-07-08 | CT_ITS ---
EXAMINATION: CT HEAD WITHOUT CONTRAST CLINICAL INFORMATION: Vomiting. Possible seizures. COMPARISON: Multiple priors, most recent CT head dated 11/18/2020. TECHNIQUE: Contiguous axial imaging was performed from the skull base to vertex without intravenous administration of contrast. This CT examination was performed using dose optimization techniques as appropriate, variously including the following: *Automated exposure control. *Adjustment of mA and/or kV according to patient size (this includes techniques or standardized protocols for targeted exams where dose is matched to indication/reason for exam; i.e. extremities or head). *Use of iterative reconstruction technique. DLP: 675 mGy-cm FINDINGS: There is no evidence of acute intracranial hemorrhage or territorial infarction. No abnormal mass effect or midline shift is seen. [id number] matter differentiation is well preserved. No extra-axial fluid collections are identified. The ventricles are normal in size. There is no abnormal attenuation within the brain parenchyma. The osseous structures and soft tissues are normal. The mastoid air cells and visualized portions of the paranasal sinuses are well aerated. CT/CT head/brain wo con IMPRESSION: No acute intracranial hemorrhage or mass effect.
--- NOTE | ~2021-07-08 | XR_ITS ---
EXAMINATION: XR CHEST CLINICAL INFORMATION: Shortness of breath, wheezing COMPARISON: Chest radiographs 06/21/2021, 05/20/2021 TECHNIQUE: Portable upright AP view of the chest was obtained. FINDINGS: There is no hyperinflation, airspace consolidation, or groundglass opacity. The costophrenic sulci are clear. The heart is normal in size. The hilar and mediastinal contours and bony structures are stable. There is no pneumothorax or pneumomediastinum. XR/XR chest 1V IMPRESSION: No acute intrathoracic disease.
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
--- NOTE | 2021-07-08 14:26 | ECG_ITS ---
Test Reason : SOB Blood Pressure : / mmHG Vent. Rate : 088 BPM Atrial Rate : 088 BPM P-R Int : 126 ms QRS Dur : 076 ms QT Int : 374 ms P-R-T Axes : -22 038 033 degrees QTc Int : 452 ms Normal sinus rhythm Normal ECG When compared with ECG of 22-JUN-2021 19:18, No significant change was found Referred By: Monisha Ricketts Electronically Signed By:KEMAR BADILLO
[2021-07-08] MEDS: methylPREDNISolone Sod Succ 125 MG/2 ML VIAL IVPUSH (14:59)
--- NOTE | 2021-07-08 15:12 | PHA.MEDREC ---
Pharmacy Consult ? Medication Reconciliation Pharmacy has completed the medication reconciliation Patient reports taking all her medications, when I called the pharmacy to verify there were medications sitting there that have no been picked up for two weeks and majority of medications were last filled in February. Christianne Iglesias, PharmD
[2021-07-08] MEDS: Albuterol Sulfate (0.083%) 2.5 MG/3 ML VIAL.NEB 10 MG INHALE (15:33)
[2021-07-08 15:37] LABS: MANUAL DIFF FLAG NO
[2021-07-08 15:38] LABS: Basophils Absolute Auto 0.1 X10*3/uL (0.0-0.2); Basophils Percent Auto 0.9 % (0-2); Eosinophils Absolute Auto 0.1 X10*3/uL (0.0-0.4); Eosinophils Percent Auto 0.9 % (0-4); Hematocrit 39.4 % (37-47); Hemoglobin 12.7 g/dl (12.0-16.0); Imm Gran Abs Auto 0.03 X10*3/uL (0.00-0.03); Imm Gran Pct Auto 0.3 % (0.0-0.4); Lymphocytes Absolute Auto 3.1 X10*3/uL (1.2-4.9); Lymphocytes Percent Auto 32.6 % (20-40); Mean Corpuscular HGB Conc 32.2 g/dl (31.0-35.0); Mean Corpuscular Hemoglobin 29.7 pg (27.0-33.0); Mean Corpuscular Volume 92.1 fL (80-98); Mean Platelet Volume 9.6 fL (9.4-12.3); Monocytes Absolute Auto 0.7 X10*3/uL (0.1-1.2); Neutrophils Absolute Auto 5.5 X10*3/uL (2.0-8.3); Neutrophils Percent Auto 58.3 % (45-73); Platelet Count 242 X10*3/uL (160-400); Red Blood Count 4.28 X10*6/uL (4.20-5.50); Red Cell Distribution Width 13.2 % (11.0-16.0); White Blood Count 9.5 X10*3/uL (4.8-10.8)
[2021-07-08 15:52] LABS: Ethanol < 10 mg/dL
[2021-07-08 15:53] LABS: COVID-19 Test Negative (Negative)
[2021-07-08 15:56] LABS: Alanine Aminotransferase 21 U/L (0-31); Albumin Level 4.1 g/dL (3.5-5.0); Alkaline Phosphatase 79 U/L (39-117); Anion Gap 15 (12-20); Aspartate Amino Transferase 21 U/L (5-31); Bilirubin Direct < 0.2 mg/dL (0.0-0.5); Bilirubin Total 0.3 mg/dL (0.0-1.0); Blood Urea Nitrogen 12 mg/dL (9-16); Calcium 9.4 mg/dL (8.4-10.2); Carbon Dioxide 23 mmol/L (22-29); Chloride 105 mmol/L (96-108); Creatinine Clr Calc Pharmacy 109.8; Estimated Glomerular Filt Rate > 60; Glucose Random 107 mg/dL (60-115); Potassium 4.4 mmol/L (3.3-5.1); Sodium 139 mmol/L (135-145); Total Protein 6.6 g/dL (6.5-8.0)
[2021-07-08 15:59] LABS: B Type Natriuretic Peptide 18 pg/mL (<100); Troponin-I High Sensitivity < 3.5 ng/L (<3.5-17.0)
[2021-07-08 16:21] LABS: Lithium < 0.10 mmol/L (0.60-1.20)
[2021-07-08 16:23] LABS: Lactic Acid 1.2 mmol/L (0.5-2.0)
[2021-07-08 16:39] LABS: Appearance Urine CLEAR; Color Urine YELLOW; Glucose Urine UA NEG (NEG); Leukocyte Esterase Urine 2+ (NEG); Nitrite Urine NEG (NEG); Specific Gravity - Urine <= 1.005 (1.005-1.025); UACC Culture Trigger YES; Urine Blood NEG (NEG); Urine Ketones NEG (NEG); Urine Protein NEG (NEG-TRACE)
[2021-07-08 16:50] LABS: Amphetamine Screen Urine Not Detected (Not Detect); Barbiturates, Urine Not Detected (Not Detect); Benzodiazepines Screen Urine Not Detected (Not Detect); Cannabinoid Screen Urine Not Detected (Not Detect); Cocaine Screen Urine Not Detected (Not Detect); Fentanyl, urine Not Detected (Not Detect); Opiate Screen Urine Not Detected (Not Detect); Phencyclidine Screen Urine Not Detected (Not Detect)
--- NOTE | 2021-07-08 16:57 | PC.NURSE ---
Pt dropping to high 80s on RA. With deep breathing and coughing she does come up to low 90s. Continuing to monitor sats continuously.
[2021-07-08 16:59] LABS: Mucus Urine 1+ /LPF; RBC Urine 0 /HPF (0); Squamous Epithelial Cell Urine 2+ /LPF; WBC Urine 0-2 /HPF (0-4)
--- NOTE | 2021-07-08 17:38 | PM.IMHP ---
History of Present Illness Date of Service: 07/08/21 Chief Complaint: Seizures, shortness of breath A 51 years old lady with PMH of COPD, bipolar, PTSD, drug abuse, pseudoseizures among others who presented to the hospital after having an episode of syncope and reported abnormal movement. The patient reports she was hanging out with her friends when she started to vomit out of no and passed out her friends reported she had abnormal movement before waking up but she kept control of her sphincters. Reports she felt shortness of breath after that and EMS came by but she refused to come to the hospital at that point as she felt little bit better. She walked for like 50 ft before starting to vomit again and had another syncope with the same reported abnormal movement again. She came back to the hospital after that feeling short of breath having wheezes bilaterally treated with steroids nebulizers. Denies any headache, double vision, focal deficit, chest pain, abdominal pain or change in bowel habit. Review of Systems Review of Systems: No fever, chills but reports feeling generalized weakness for now No chest pain, palpitation Reporting shortness of breath and wheezing No abdominal pain, nausea or vomiting No urinary symptoms No any rash or wounds PMFSH Medical History Asthma exacerbation in COPD Bipolar disorder Bipolar I disorder Borderline personality disorder Borderline personality disorder COPD (chronic obstructive pulmonary disease) Depression Drug abuse Herpes Intermittent explosive disorder FABIOLA (obstructive sleep apnea) Post traumatic stress disorder (PTSD) PTSD (post-traumatic stress disorder) PTSD (post-traumatic stress disorder) Tobacco use Family History Mother COPD (chronic obstructive pulmonary disease) Surgical History History of ankle surgery History of appendectomy History of back surgery Hx of cholecystectomy Social History Household Members: None Household Members Other:: Pt states she hangs out with a male friend and a female friend Housing: Homeless Housing Other:: will be getting apartment 07/01 Do you presently have visiting nurse or other home services: No Unable to assess alcohol history related to: Unknown Alcohol intake: former Patient Tobacco Use Status: Current everyday Tobacco user Tobacco use type: Cigarette Cigarette Packs Per Day: 1 Cigarettes Per Day: 20.0 Years Smoked: 17 e-Cigarette/Vaping Use: Never Used Second Hand Smoke Exposure: Yes Substance Use Type: Crack/Cocaine Advance Directives: Yes Advance Directives on File: Yes Advance Directives Date on File: 12/24/20 Patient : No service: No Current occupational status: unemployed and disabled Sexual orientation: Did not discuss Meds Allergies Allergy/AdvReac Type Severity Reaction Status Date / Time aspirin [Aspirin] Allergy Severe HIVES,THROAT Verified 06/05/21 21:34 SWELLS bee pollen [BEE STINGS] Allergy Severe ANAPHYLAXIS Verified 06/05/21 21:34 diphenhydramine Allergy Severe hives, Verified 06/05/21 21:34 [From BENADRYL ALLERGY] throat swells Penicillins [PCN] Allergy Severe HIVES Verified 06/05/21 21:34 THROAT SWELLS Sulfa (Sulfonamide Allergy Intermediate HIVES Verified 06/05/21 21:34 Antibiotics) [SULFA (SULFONAMIDE ANTIBIOTICS)] tramadol [TRAMADOL] Allergy Intermediate ITCHING Verified 06/05/21 21:34 latex [LATEX] Allergy Unknown UNKNOWN Verified 06/05/21 21:34 penicillin G Allergy Unknown Unknown Verified 06/05/21 21:34 levofloxacin [From Levaquin] Allergy Hives Verified 06/05/21 21:34 bee stings Allergy Unknown Unknown Uncoded 06/05/21 21:34 DairyCare Allergy Unknown Unknown Uncoded 06/05/21 21:34 sulfa drugs Allergy Unknown Unknown Uncoded 06/05/21 21:34 Active Medications: Current Medications Generic Name Dose Route Start Last Admin Trade Name Freq PRN Reason Stop Dose Admin Doxycycline Hyclate 100 mg/ 250 mls @ 166.67 mls/hr 07/08/21 17:03 Sodium Chloride IV 07/08/21 18:32 ONCE ONE Pharmacy Consult 1 each 07/08/21 14:26 Consult Rx Perform Med Rec MISCELLANE ONCE PRN Consult order Home Medications Medication Instructions Recorded Confirmed Last Taken Type prazosin 1 mg capsule 1 mg PO BEDTIME 06/22/21 07/08/21 07/06/21 History tiotropium bromide 1.25 2 puff INHALATION DAILY 07/08/21 07/08/21 07/08/21 History mcg/actuation mist for inhalation (Spiriva Respimat) Physical Exam Vital Signs and Narrative: Vital Signs: Last Vital Signs Temp 98.5 F 07/08/21 14:12 Pulse 94 07/08/21 16:33 Resp 20 07/08/21 16:33 BP 119/57 L 07/08/21 16:33 Pulse Ox 92 07/08/21 16:56 Body Mass Index 35.5 Const: Other: Constitutional : Alert, oriented, in mild respiratory distress Neck : Normal inspection, Supple Cardiovascular : RRR, S1 S2, no lower extremity edema Respiratory : Decreased bilateral air entry, no crackles, bilateral fine wheezes or rhonchi Gastrointestinal: soft, lax, Normal bowel sounds, Non tender Skin : Warm, Dry Neurological : Alert & oriented x3, No focal deficit Results Labs CBC and Chem 7: 07/08/21 15:29 07/08/21 15:27 Labs: Laboratory Results - last 24 hr 07/08/21 07/08/21 07/08/21 15:27 15:27 15:27 MCV MCH MCHC RDW Plt Count MPV Immature Gran % (Auto) Neut % (Auto) Lymph % (Auto) [place] % (Auto) Eos % (Auto) Baso % (Auto) Lymph # (Auto) [place] # (Auto) Eos # (Auto) Baso # (Auto) Abs Immat Gran (auto) Absolute Neuts (auto) Absolute Nucleated RBC Nucleated RBC % (auto) Anion Gap 15 Estim Creat Clear Calc 109.8 Estimated GFR > 60 Random Glucose 107 Lactic Acid Calcium 9.4 Magnesium 2.0 Total Bilirubin 0.3 Direct Bilirubin < 0.2 AST 21 D ALT 21 Alkaline Phosphatase 79 Total Creatine Kinase Troponin I High Sens < 3.5 B-Natriuretic Peptide 18 Total Protein 6.6 Albumin 4.1 Urine Color Urine Appearance Urine pH Ur Specific [place] Urine Protein Urine Glucose (UA) Urine Ketones Urine Blood Urine Nitrite Ur Leukocyte Esterase Urine RBC Urine WBC Ur Squamous Epith Cells Urine Bacteria Urine Mucus Urine Opiates Screen Urine Fentanyl Screen Ur Barbiturates Screen Ur Phencyclidine Scrn Ur Amphetamines Screen U Benzodiazepines Scrn [place] Urine Cocaine Screen U Marijuana (THC) Screen Ethyl Alcohol < 10 COVID-19 (ENDY) COVID-19 Clin Com 07/08/21 07/08/21 07/08/21 15:27 15:29 15:31 MCV 92.1 MCH 29.7 MCHC 32.2 RDW 13.2 Plt Count 242 MPV 9.6 Immature Gran % (Auto) 0.3 Neut % (Auto) 58.3 Lymph % (Auto) 32.6 [place] % (Auto) 7.0 Eos % (Auto) 0.9 Baso % (Auto) 0.9 Lymph # (Auto) 3.1 [place] # (Auto) 0.7 Eos # (Auto) 0.1 Baso # (Auto) 0.1 Abs Immat Gran (auto) 0.03 Absolute Neuts (auto) 5.5 Absolute Nucleated RBC 0.000 Nucleated RBC % (auto) 0.0 Anion Gap Estim Creat Clear Calc Estimated GFR Random Glucose Lactic Acid Calcium Magnesium Total Bilirubin Direct Bilirubin AST ALT Alkaline Phosphatase Total Creatine Kinase 125 Troponin I High Sens B-Natriuretic Peptide Total Protein Albumin Urine Color Urine Appearance Urine pH Ur Specific [place] Urine Protein Urine Glucose (UA) Urine Ketones Urine Blood Urine Nitrite Ur Leukocyte Esterase Urine RBC Urine WBC Ur Squamous Epith Cells Urine Bacteria Urine Mucus Urine Opiates Screen Urine Fentanyl Screen Ur Barbiturates Screen Ur Phencyclidine Scrn Ur Amphetamines Screen U Benzodiazepines Scrn [place] Urine Cocaine Screen U Marijuana (THC) Screen Ethyl Alcohol COVID-19 (ENDY) Negative COVID-19 Clin Com See Note 07/08/21 07/08/21 07/08/21 15:55 15:56 16:27 MCV MCH MCHC RDW Plt Count MPV Immature Gran % (Auto) Neut % (Auto) Lymph % (Auto) [place] % (Auto) Eos % (Auto) Baso % (Auto) Lymph # (Auto) [place] # (Auto) Eos # (Auto) Baso # (Auto) Abs Immat Gran (auto) Absolute Neuts (auto) Absolute Nucleated RBC Nucleated RBC % (auto) Anion Gap Estim Creat Clear Calc Estimated GFR Random Glucose Lactic Acid 1.2 Calcium Magnesium Total Bilirubin Direct Bilirubin AST ALT Alkaline Phosphatase Total Creatine Kinase Troponin I High Sens B-Natriuretic Peptide Total Protein Albumin Urine Color YELLOW Urine Appearance CLEAR Urine pH 6.0 Ur Specific [place] <= 1.005 Urine Protein NEG Urine Glucose (UA) NEG Urine Ketones NEG Urine Blood NEG Urine Nitrite NEG Ur Leukocyte Esterase 2+ H Urine RBC 0 Urine WBC 0-2 Ur Squamous Epith Cells 2+ Urine Bacteria NONE Urine Mucus 1+ Urine Opiates Screen Urine Fentanyl Screen Ur Barbiturates Screen Ur Phencyclidine Scrn Ur Amphetamines Screen U Benzodiazepines Scrn [place] < 0.10 L Urine Cocaine Screen U Marijuana (THC) Screen Ethyl Alcohol COVID-19 (ENDY) COVID-19 [email or web address] Com 07/08/21 16:27 MCV MCH MCHC RDW Plt Count MPV Immature Gran % (Auto) Neut % (Auto) Lymph % (Auto) [place] % (Auto) Eos % (Auto) Baso % (Auto) Lymph # (Auto) [place] # (Auto) Eos # (Auto) Baso # (Auto) Abs Immat Gran (auto) Absolute Neuts (auto) Absolute Nucleated RBC Nucleated RBC % (auto) Anion Gap Estim Creat Clear Calc Estimated GFR Random Glucose Lactic Acid Calcium Magnesium Total Bilirubin Direct Bilirubin AST ALT Alkaline Phosphatase Total Creatine Kinase Troponin I High Sens B-Natriuretic Peptide Total Protein Albumin Urine Color Urine Appearance Urine pH Ur Specific [place] Urine Protein Urine Glucose (UA) Urine Ketones Urine Blood Urine Nitrite Ur Leukocyte Esterase Urine RBC Urine WBC Ur Squamous Epith Cells Urine Bacteria Urine Mucus Urine Opiates Screen Not Detected Urine Fentanyl Screen Not Detected Ur Barbiturates Screen Not Detected Ur Phencyclidine Scrn Not Detected Ur Amphetamines Screen Not Detected U Benzodiazepines Scrn Not Detected [place] Urine Cocaine Screen Not Detected U Marijuana (THC) Screen Not Detected Ethyl Alcohol COVID-19 (ENDY) COVID-19 Clin Com Imaging Radiologist's Impressions: Impressions Chest X-Ray 07/08/21 14:26 IMPRESSION: No acute intrathoracic disease. Assessment and Plan (1) Acute respiratory failure with hypoxia: Status: Acute (2) COPD exacerbation: Status: Acute A 51 years old lady with PMH of COPD, bipolar, PTSD, drug abuse, pseudoseizures among others who presented to the hospital after having an episode of syncope and reported abnormal movement. Acute hypoxic respiratory failure Secondary to COPD exacerbation Possibly aspiration related Start nebulizers Steroid IV for now Start azithromycin Wean oxygen down as tolerated Abnormal movement Questionable for seizure activity per the patient To do CT scan of the head Neurochecks To get Neurology evaluation Mood Disorder Continue olanzapine, sertraline and trazodone DVT PPX Lovenox Quality Stroke Does the patient have a stroke diagnosis?: No VTE Prior VTE?: No VTE Risk Level:: Medical - moderate - high VTE Device Contraindication: Treatment Not Indicated VTE Drug Contraindication: N/A - Med Ordered
[2021-07-08] MEDS: Doxycycline Hyclate 100 MG in 0.9 % Sodium Chloride 250 ML 166.67 MG IV (18:05)
--- NOTE | 2021-07-08 19:02 | PC.NURSE ---
Pt had 22G IV to left forearm. When doxy was given site began to burn significantly. Pt's doxy stopped. Another IV line attempted without success. Pt now refusing an IV line. Hospitalist is aware of this as well as the fact that she did not receive her 1x dose of doxy.
--- NOTE | 2021-07-08 19:13 | PC.NURSE ---
PT CALLED THIS RN TO HER ROOM STATING SHE WANTED TO LEAVE, SHE WAS REFUSING TO HAVE IV ACCESS REGAINED. SHE BECAME AGITATED AND WALKED OUT OF THE ED, REFUSING TO WAIT FOR MD INTERVENTION
--- NOTE | 2021-07-09 08:26 | PM.EVENT ---
Event Note Date of Service: 07/09/21 Event Note: Discharge note Discharge diagnosis Acute hypoxic respiratory failure Secondary to COPD exacerbation Abnormal movements, suspected seizure Patient left AMA from ED without waiting to talk to night physician.
--- NOTE | 2021-07-09 08:42 | MHC.CM.PN ---
Patient left AMA before she could be seen by case management.
== END 2021-07-09 09:00 | disposition left against medical advice (07) | DRG 140 ==
LOC: HO.ED 17:17 → HO.EDOVER 18:01
PROVIDERS: Physician Assistant; Admitting Provider Student in an Organized Health Care Education/Training Program; Emergency Provider Emergency Medicine Emergency Medical Services; Visit Provider Student in an Organized Health Care Education/Training Program
DX: J44.1 Chronic obstructive pulmonary disease with (acute) exacerbation (principal); J96.01 Acute respiratory failure with hypoxia; R56.9 Unspecified convulsions; F17.210 Nicotine dependence, cigarettes, uncomplicated; Z71.6 Tobacco abuse counseling; Z20.822 Contact with and (suspected) exposure to COVID-19; Z88.0 Allergy status to penicillin; Z88.2 Allergy status to sulfonamides; Z88.6 Allergy status to analgesic agent; Z79.51 Long term (current) use of inhaled steroids; Z79.899 Other long term (current) drug therapy
CPT/HCPCS: 36415; 70450; 71045; 73562; 80048; 80076; 80178; 80307; 81001; 82077; 82550; 83605; 83735; 83880; 84484; 85025; 87040; 87086; 87635; 93005; 94640; 94644; 96365; 96375; 99219; 99284; 99291; J2930

== ENCOUNTER 2021-07-13 11:26 | Inpatient (IN) | payer MEDICAID, SELFPAY ==
[2021-07-13] VITALS (11 sets, daily range): BP systolic 101–184; BP diastolic 53–88; PULSE 82–98; RESP 19–25; TEMP 36.4–37; O2SAT 90–99; BMI 39.8
--- NOTE | ~2021-07-13 | XR_ITS ---
EXAMINATION: XR CHEST CLINICAL INFORMATION: Dyspnea COMPARISON: None TECHNIQUE: Frontal view of the chest was obtained. FINDINGS: No significant abnormality is noted involving the heart, lungs, mediastinum, bony thorax or soft tissues. XR/XR chest 1V IMPRESSION: Unremarkable chest examination.
--- NOTE | 2021-07-13 11:37 | ECG_ITS ---
Test Reason : DYSPNEA Blood Pressure : / mmHG Vent. Rate : 089 BPM Atrial Rate : 089 BPM P-R Int : 134 ms QRS Dur : 088 ms QT Int : 368 ms P-R-T Axes : 050 017 014 degrees QTc Int : 447 ms Normal sinus rhythm Normal ECG When compared with ECG of 08-JUL-2021 14:47, No significant change was found Referred By: Nicole Cisse Electronically Signed By:KEMAR BADILLO
--- NOTE | 2021-07-13 11:46 | ED_ITS ---
HPI - Asthma General Chief Complaint: Dyspnea Stated Complaint: diff breathing Time Seen by Provider: 07/13/21 11:35 Source: patient and EMS Mode of arrival: EMS Limitations: other (respiratory distress) History of Present Illness HPI Narrative: 51 yo female with asthma/COPD current smoker hx of sig mental health issues comes in with 3 days of wheezing and cough - she was brought in with just NRB and empty reservoir in sig resp distress. She is vaccinated MD complaint: asthma attack , shortness of breath and wheezing Onset (ago): day(s) (3) Severity: moderate Context: smoke exposure Associated symptoms: productive cough Asthma History: adult onset, history of frequent attacks and history of prior ED visit Treatments Prior to Arrival: oxygen Related Data Home Medications Medication Instructions Recorded Confirmed prazosin 1 mg capsule 1 mg PO BEDTIME 06/22/21 07/08/21 tiotropium bromide 1.25 2 puff INHALATION DAILY 07/08/21 07/08/21 mcg/actuation mist for inhalation (Spiriva Respimat) Previous Rx's Medication Instructions Recorded albuterol sulfate 90 mcg/actuation 2 puff INHALATION QID PRN 30 Days 06/15/21 aerosol inhaler #1 g cholecalciferol (vitamin D3) 25 25 mcg PO DAILY 30 Days #30 tab 06/15/21 mcg (1,000 unit) tablet ferrous sulfate 324 mg (65 mg 324 mg PO DAILY 30 Days #30 tab 06/15/21 iron) tablet,delayed release fluticasone 232 mcg-salmeterol 14 1 inh INHALATION BID 30 Days #1 ea 06/15/21 mcg/actuation breath activated powdr lithium carbonate 300 mg 600 mg PO BID 30 Days #120 tab 06/15/21 tablet,extended release olanzapine 5 mg tablet 5 mg PO BID #60 tab 06/15/21 omeprazole 20 mg capsule,delayed 20 mg PO DAILY@0630 30 Days #30 cap 06/15/21 release sertraline 50 mg tablet 50 mg PO DAILY #30 tab 06/15/21 trazodone 50 mg tablet 150 mg PO BEDTIME 30 Days #90 tab 06/15/21 valacyclovir 1 gram tablet 1,000 mg PO BID 30 Days #60 tab 06/15/21 (Valtrex) prednisone 20 mg tablet 40 mg PO DAILY 5 Days #10 tab 07/08/21 Allergies Allergy/AdvReac Type Severity Reaction Status Date / Time aspirin [Aspirin] Allergy Severe HIVES,THROAT Verified 06/05/21 21:34 SWELLS bee pollen [BEE STINGS] Allergy Severe ANAPHYLAXIS Verified 06/05/21 21:34 diphenhydramine Allergy Severe hives, Verified 06/05/21 21:34 [From BENADRYL ALLERGY] throat swells Penicillins [PCN] Allergy Severe HIVES Verified 06/05/21 21:34 THROAT SWELLS Sulfa (Sulfonamide Allergy Intermediate HIVES Verified 06/05/21 21:34 Antibiotics) [SULFA (SULFONAMIDE ANTIBIOTICS)] tramadol [TRAMADOL] Allergy Intermediate ITCHING Verified 06/05/21 21:34 latex [LATEX] Allergy Unknown UNKNOWN Verified 06/05/21 21:34 penicillin G Allergy Unknown Unknown Verified 06/05/21 21:34 levofloxacin [From Levaquin] Allergy Hives Verified 06/05/21 21:34 bee stings Allergy Unknown Unknown Uncoded 06/05/21 21:34 DairyCare Allergy Unknown Unknown Uncoded 06/05/21 21:34 sulfa drugs Allergy Unknown Unknown Uncoded 06/05/21 21:34 Review of Systems Review of Systems: ROS unable to be obtained due to patient's significant resp distress PMFSH Past Medical History Attestation statement: The following information was validated with the patient. Source: old records reviewed Medical History Asthma exacerbation in COPD Bipolar disorder Bipolar I disorder Borderline personality disorder Borderline personality disorder COPD (chronic obstructive pulmonary disease) Depression Drug abuse Herpes Intermittent explosive disorder FABIOLA (obstructive sleep apnea) Post traumatic stress disorder (PTSD) PTSD (post-traumatic stress disorder) PTSD (post-traumatic stress disorder) Tobacco use Surgical History History of ankle surgery History of appendectomy History of back surgery Hx of cholecystectomy Family History Family History Mother COPD (chronic obstructive pulmonary disease) Social History Social History Household Members: None Household Members Other:: Pt states she hangs out with a male friend and a female friend Housing: Homeless Housing Other:: will be getting apartment 07/01 Do you presently have visiting nurse or other home services: No Unable to assess alcohol history related to: Unknown Alcohol intake: former Patient Tobacco Use Status: Current everyday Tobacco user Tobacco use type: Cigarette Cigarette Packs Per Day: 1 Cigarettes Per Day: 20.0 Years Smoked: 17 e-Cigarette/Vaping Use: Never Used Second Hand Smoke Exposure: Yes Substance Use Type: Crack/Cocaine Advance Directives: Yes Advance Directives on File: Yes Advance Directives Date on File: 12/24/20 Patient : No service: No Current occupational status: unemployed and disabled Sexual orientation: Did not discuss Physical Exam Vital Signs: Vital Signs: Last Vital Signs Temp 97.6 F 07/13/21 12:50 Pulse 89 07/13/21 12:50 Resp 25 H 07/13/21 12:50 BP 123/64 07/13/21 12:50 Pulse Ox 95 07/13/21 13:00 Oxygen Flow Rate 15 07/13/21 11:44 Body Mass Index 39.8 Appearance: Alert. Oriented X3. Anxious moderate acute distress. EMS NRB 15L with empty reservoi Eyes: Pupils equal, round and reactive to light. ENT: Pharynx normal. Neck: Normal inspection. Neck supple. CVS: tachycardic heart rate and rhythm. Pulses normal. Respiratory: moderate respiratory distress single words, tachypnea and retractions. Breath sounds decreased throughout with coarse sound and diff wheezes Abdomen: Soft and non-tender. Skin: Skin warm and diaphoretic. Normal skin color. Normal skin turgor. Extremities: No lower extremity edema. No calf ttp Neuro: Oriented X 3. No motor deficit. No sensory deficit. Course Course Course Narrative: patient much improved after hour long neb but still tight and wheezing requiring O2 - not on at home repeat 5mg neb ordered 88% on RA after treatments MDM - Asthma MDM Narrative Medical decision making narrative: 51 yo female with asthma/COPD current smoker hx of sig mental health issues comes in with 3 days of wheezing and cough - she was brought in with just NRB and empty reservoir in sig resp distress. At this time hour long 10mg neb, IV steroids, IV magnesium, labs, cultures, COVID swab and CXR for pneumonia though likely chronic asthma/COPD from persistent smoking. Dispo per results as well as resp improvement Lab Data Result diagrams: 07/13/21 12:25 07/13/21 12:25 Labs: Lab Results 07/13/21 07/13/21 07/13/21 Range/Units 12:25 12:25 12:25 WBC 8.3 (4.8-10.8) X10*3/uL RBC 4.25 (4.20-5.50) X10*6/uL Hgb 12.7 (12.0-16.0) g/dl Hct 39.1 (37-47) % MCV 92.0 (80-98) fL MCH 29.9 (27.0-33.0) pg MCHC 32.5 (31.0-35.0) g/dl RDW 13.0 (11.0-16.0) % Plt Count 266 (160-400) X10*3/uL MPV 9.6 (9.4-12.3) fL Immature Gran % (Auto) 0.4 (0.0-0.4) % Neut % (Auto) 37.1 L (45-73) % Lymph % (Auto) 52.8 H (20-40) % [place] % (Auto) 7.1 (2-11) % Eos % (Auto) 1.6 (0-4) % Baso % (Auto) 1.0 (0-2) % Lymph # (Auto) 4.4 (1.2-4.9) X10*3/uL [place] # (Auto) 0.6 (0.1-1.2) X10*3/uL Eos # (Auto) 0.1 (0.0-0.4) X10*3/uL Baso # (Auto) 0.1 (0.0-0.2) X10*3/uL Abs Immat Gran (auto) 0.03 (0.00-0.03) X10*3/uL Absolute Neuts (auto) 3.1 (2.0-8.3) X10*3/uL Absolute Nucleated RBC 0.000 (0.0-0.012) X10*3/uL Nucleated RBC % (auto) 0.0 (0.0-0.2) /100WBC Sodium 141 (135-145) mmol/L Potassium 2.7 L D (3.3-5.1) mmol/L Chloride 113 H (96-108) mmol/L Carbon Dioxide 22 (22-29) mmol/L Anion Gap 9 L (12-20) BUN 12 (9-16) mg/dL Creatinine 0.57 (0.5-1.4) mg/dL Estim Creat Clear Calc 149.8 Estimated GFR > 60 Random Glucose 83 (60-115) mg/dL Lactic Acid (0.5-2.0) mmol/L Calcium 7.1 L D (8.4-10.2) mg/dL Magnesium 2.1 (1.6-2.6) mg/dL Total Bilirubin 0.3 (0.0-1.0) mg/dL Direct Bilirubin < 0.2 (0.0-0.5) mg/dL AST 15 (5-31) U/L ALT 25 (0-31) U/L Alkaline Phosphatase 84 (39-117) U/L Total Protein 6.4 L (6.5-8.0) g/dL Albumin 4.1 (3.5-5.0) g/dL [place] (0.60-1.20) mmol/L 07/13/21 07/13/21 Range/Units 12:25 12:25 WBC (4.8-10.8) X10*3/uL RBC (4.20-5.50) X10*6/uL Hgb (12.0-16.0) g/dl Hct (37-47) % MCV (80-98) fL MCH (27.0-33.0) pg MCHC (31.0-35.0) g/dl RDW (11.0-16.0) % Plt Count (160-400) X10*3/uL MPV (9.4-12.3) fL Immature Gran % (Auto) (0.0-0.4) % Neut % (Auto) (45-73) % Lymph % (Auto) (20-40) % [place] % (Auto) (2-11) % Eos % (Auto) (0-4) % Baso % (Auto) (0-2) % Lymph # (Auto) (1.2-4.9) X10*3/uL [place] # (Auto) (0.1-1.2) X10*3/uL Eos # (Auto) (0.0-0.4) X10*3/uL Baso # (Auto) (0.0-0.2) X10*3/uL Abs Immat Gran (auto) (0.00-0.03) X10*3/uL Absolute Neuts (auto) (2.0-8.3) X10*3/uL Absolute Nucleated RBC (0.0-0.012) X10*3/uL Nucleated RBC % (auto) (0.0-0.2) /100WBC Sodium (135-145) mmol/L Potassium (3.3-5.1) mmol/L Chloride (96-108) mmol/L Carbon Dioxide (22-29) mmol/L Anion Gap (12-20) BUN (9-16) mg/dL Creatinine (0.5-1.4) mg/dL Estim Creat Clear Calc Estimated GFR Random Glucose (60-115) mg/dL Lactic Acid 1.3 (0.5-2.0) mmol/L Calcium (8.4-10.2) mg/dL Magnesium (1.6-2.6) mg/dL Total Bilirubin (0.0-1.0) mg/dL Direct Bilirubin (0.0-0.5) mg/dL AST (5-31) U/L ALT (0-31) U/L Alkaline Phosphatase (39-117) U/L Total Protein (6.5-8.0) g/dL Albumin (3.5-5.0) g/dL [place] < 0.10 L (0.60-1.20) mmol/L ECG Data Attestation: I personally reviewed and interpreted this ECG as follows: ECG interpretation time: 12:55 Interpretation: Rate: 89 Rhythm: NSR [place]: normal Normal P waves. Normal GABBIE. Normal QRS complex. ST T wave : no KYRIE, nonspecific inf leads qTC: normal prior studies: normal no sig ischemia The study has been interpreted contemporaneously by me. . Critical Care Time Critical Care Time Critical Care Time: Yes Total Critical Care Time: 60 Attestation: 2 hour long nebs, immediate O2 resuscitation on arrival to ED. reversal of sig resp distress I attest to this time spent taking care of the patient Discharge Plan Discharge Clinical Impression: Asthma with exacerbation, Acute hypokalemia, Hypoxia Patient Disposition: Admitted As Inpatient
[2021-07-13] MEDS: Albuterol Sulfate (0.083%) 2.5 MG/3 ML VIAL.NEB 10 MG INHALE (12:10)
[2021-07-13 12:35] LABS: MANUAL DIFF FLAG NO
[2021-07-13 12:39] LABS: Basophils Absolute Auto 0.1 X10*3/uL (0.0-0.2); Eosinophils Absolute Auto 0.1 X10*3/uL (0.0-0.4); Eosinophils Percent Auto 1.6 % (0-4); Hematocrit 39.1 % (37-47); Hemoglobin 12.7 g/dl (12.0-16.0); Imm Gran Abs Auto 0.03 X10*3/uL (0.00-0.03); Imm Gran Pct Auto 0.4 % (0.0-0.4); Lymphocytes Absolute Auto 4.4 X10*3/uL (1.2-4.9); Lymphocytes Percent Auto 52.8 % (20-40); Mean Corpuscular HGB Conc 32.5 g/dl (31.0-35.0); Mean Corpuscular Hemoglobin 29.9 pg (27.0-33.0); Mean Platelet Volume 9.6 fL (9.4-12.3); Monocytes Absolute Auto 0.6 X10*3/uL (0.1-1.2); Monocytes Percent Auto 7.1 % (2-11); Neutrophils Absolute Auto 3.1 X10*3/uL (2.0-8.3); Neutrophils Percent Auto 37.1 % (45-73); Platelet Count 266 X10*3/uL (160-400); Red Blood Count 4.25 X10*6/uL (4.20-5.50); White Blood Count 8.3 X10*3/uL (4.8-10.8)
[2021-07-13 12:45] LABS: Lactic Acid 1.3 mmol/L (0.5-2.0); Lithium < 0.10 mmol/L (0.60-1.20)
[2021-07-13 12:50] LABS: Alanine Aminotransferase 25 U/L (0-31); Albumin Level 4.1 g/dL (3.5-5.0); Alkaline Phosphatase 84 U/L (39-117); Anion Gap 9 (12-20); Aspartate Amino Transferase 15 U/L (5-31); Bilirubin Direct < 0.2 mg/dL (0.0-0.5); Bilirubin Total 0.3 mg/dL (0.0-1.0); Blood Urea Nitrogen 12 mg/dL (9-16); Calcium 7.1 mg/dL (8.4-10.2); Carbon Dioxide 22 mmol/L (22-29); Chloride 113 mmol/L (96-108); Creatinine Clr Calc Pharmacy 149.8; Estimated Glomerular Filt Rate > 60; Glucose Random 83 mg/dL (60-115); Magnesium 2.1 mg/dL (1.6-2.6); Potassium 2.7 mmol/L (3.3-5.1); Sodium 141 mmol/L (135-145); Total Protein 6.4 g/dL (6.5-8.0)
[2021-07-13] MEDS: Magnesium Sulfate/H2O 2 GM/50 ML PIGGYBACK IV (13:04)
[2021-07-13] MEDS: methylPREDNISolone Sod Succ 125 MG/2 ML VIAL IVPUSH (13:05)
[2021-07-13 13:29] LABS: COVID-19 Test Negative (Negative)
[2021-07-13] MEDS: Albuterol Sulfate (0.083%) 2.5 MG/3 ML VIAL.NEB 5 MG INHALE (13:41)
--- NOTE | 2021-07-13 13:42 | PHA.MEDREC ---
Pharmacy Consult ? Medication Reconciliation Pharmacy has completed the medication reconciliation. Unable to directly speak with patient, too drowsy. contacted pharmacy.
--- NOTE | 2021-07-13 13:51 | P.HPHOSP_ITS ---
History of Present Illness Date of Service: 07/13/21 Chief Complaint: Shortness of breath after smoking This is a 51-year-old female with a past medical history as outlined below who despite multiple readmissions for exacerbation of her asthma/COPD continues to smoke tobacco daily and now presents to the hospital with complaints of progressive shortness of breath which became acutely worse on the day of admission. This is the patient's 3rd admission for COPD exacerbation, with the last 1 being on 07/08/2021 during which she signed out against medical advice on the day after admission. The patient has been educated multiple times by multiple providers on complete tobacco cessation, however she has not he did medical advice and continues to smoke. Patient reports that she continues to smoke and on the day of presentation she began having trouble breathing and severe coughing spells which led her to call paramedics. Upon arrival to the emergency room, she was given IV systemic steroids, an hour long updraft but remained persistently hypoxic into the mid to low 80s requiring supplemental oxygen to keep her saturations above 90. Additionally, she was noted to be hypokalemic and will be admitted for treatment for her respiratory symptoms. She denies any fevers or chills. She denies any known sick contacts, particularly COVID-19. She endorses that she has been vaccinated with [place] is COVID-19 vaccine. Review of Systems Review of Systems: General - denies fevers or chills, denies weakness or fatigue HEENT -denies blurred vision, denies headache, denies sore throat Cardiovascular - denies chest pain or palpitations, denies edema Respiratory - +SOB/cough/wheezing Gastrointestinal - denies abdominal pain, nausea, vomiting, diarrhea - denies flank pain, denies dysuria, denies frequency or urgency Musculoskeletal - denies back pain, denies hip pain, denies knee pain, denies shoulder pain Neurological - denies any focal weakness or numbness Skin, denies any bruising or redness Psychiatric - denies any suicidal ideation, hallucinations, homicidal ideation Endocrinology - denies intolerance to hot / cold temperatures Yes all other systems are reviewed and are negative [facility] Medical History Asthma exacerbation in COPD Bipolar disorder Bipolar I disorder Borderline personality disorder Borderline personality disorder COPD (chronic obstructive pulmonary disease) Depression Drug abuse Herpes Intermittent explosive disorder FABIOLA (obstructive sleep apnea) Post traumatic stress disorder (PTSD) PTSD (post-traumatic stress disorder) PTSD (post-traumatic stress disorder) Tobacco use Family History Mother COPD (chronic obstructive pulmonary disease) Surgical History History of ankle surgery History of appendectomy History of back surgery Hx of cholecystectomy Social History Household Members: None Household Members Other:: Pt states she hangs out with a male friend and a female friend Housing: Homeless Housing Other:: will be getting apartment 07/01 Do you presently have visiting nurse or other home services: No Unable to assess alcohol history related to: Unknown Alcohol intake: former Patient Tobacco Use Status: Current everyday Tobacco user Tobacco use type: Cigarette Cigarette Packs Per Day: 1 Cigarettes Per Day: 20.0 Years Smoked: 17 e-Cigarette/Vaping Use: Never Used Second Hand Smoke Exposure: Yes Substance Use Type: Crack/Cocaine Advance Directives: Yes Advance Directives on File: Yes Advance Directives Date on File: 12/24/20 Patient : No service: No Current occupational status: unemployed and disabled Sexual orientation: Did not discuss Meds Allergies Allergy/AdvReac Type Severity Reaction Status Date / Time aspirin [Aspirin] Allergy Severe HIVES,THROAT Verified 06/05/21 21:34 SWELLS bee pollen [BEE STINGS] Allergy Severe ANAPHYLAXIS Verified 06/05/21 21:34 diphenhydramine Allergy Severe hives, Verified 06/05/21 21:34 [From BENADRYL ALLERGY] throat swells Penicillins [PCN] Allergy Severe HIVES Verified 06/05/21 21:34 THROAT SWELLS Sulfa (Sulfonamide Allergy Intermediate HIVES Verified 06/05/21 21:34 Antibiotics) [SULFA (SULFONAMIDE ANTIBIOTICS)] tramadol [TRAMADOL] Allergy Intermediate ITCHING Verified 06/05/21 21:34 latex [LATEX] Allergy Unknown UNKNOWN Verified 06/05/21 21:34 penicillin G Allergy Unknown Unknown Verified 06/05/21 21:34 levofloxacin [From Levaquin] Allergy Hives Verified 06/05/21 21:34 bee stings Allergy Unknown Unknown Uncoded 06/05/21 21:34 DairyCare Allergy Unknown Unknown Uncoded 06/05/21 21:34 sulfa drugs Allergy Unknown Unknown Uncoded 06/05/21 21:34 Active Medications: Current Medications Generic Name Dose Route Start Last Admin Trade Name Jacob PRN Reason Stop Dose Admin Acetaminophen 650 mg 07/13/21 13:46 Acetaminophen 325 Mg Tablet PO Q6H PRN Pain, Mild (Pain Scale 1-3) Albuterol/Ipratropium 3 ml 07/13/21 16:00 Albuterol/Iprat 2.5/0.5mg 3 Ml Ampul.Neb INHALE RQ4H WHILE AWAKE [facility] Enoxaparin Sodium 40 mg 07/13/21 14:00 Enoxaparin Sodium 40 Mg/0.4 Ml Syringe SUBCUT Q24H [facility] Ferrous Sulfate 324 mg 07/14/21 09:00 Ferrous Sulfate 324 Mg Tablet. PO DAILY [facility] Potassium Chloride 10 meq in 100 mls @ 100 mls/hr 07/13/21 13:00 IV 07/13/21 14:59 Q1H [facility] [place] Carbonate 600 mg 07/13/21 21:00 [place] Carbonate Er 300 Mg Tablet.Er PO BID [facility] Methylprednisolone Sodium Succinate 40 mg 07/13/21 21:00 Methylprednisolone Sod Succ 40 Mg/Ml Vial IVPUSH BID [facility] Olanzapine 5 mg 07/13/21 21:00 Olanzapine 5 Mg Tablet PO BID [facility] Omeprazole 20 mg 07/14/21 06:30 Omeprazole 20 Mg Capsule. PO DAILY@0630 [facility] Ondansetron HCl 4 mg 07/13/21 13:46 Ondansetron Hcl 4 Mg/2 Ml Vial IVPUSH Q8H PRN Nausea and Vomiting Pharmacy Consult 1 each 07/13/21 11:35 Consult Rx Perform Med Rec MISCELLANE ONCE PRN Consult order Prazosin HCl 1 mg 07/13/21 21:00 Prazosin Hcl 1 Mg Capsule PO BEDTIME [facility] Protocol Sertraline HCl 50 mg 07/14/21 09:00 Sertraline Hcl 50 Mg Tablet PO DAILY [facility] Sodium Chloride 3 ml 07/13/21 16:00 0.9 % Sodium Chloride Flush 3 Ml Syringe IVFLUSH QSHIFT [facility] Trazodone HCl 150 mg 07/13/21 21:00 Trazodone Hcl 50 Mg Tablet PO BEDTIME [facility] Vitamin D 25 mcg 07/14/21 09:00 Cholecalciferol (Vitamin D3) 25 Mcg Tablet PO DAILY [facility] Home Medications Medication Instructions Recorded Confirmed Last Taken Type prazosin 1 mg capsule 1 mg PO BEDTIME 06/22/21 07/13/21 07/06/21 History tiotropium bromide 1.25 2 puff INHALATION DAILY 07/08/21 07/13/21 07/08/21 History mcg/actuation mist for inhalation (Spiriva Respimat) Physical Exam Vital Signs and Narrative: Vital Signs: Last Vital Signs Temp 97.6 F 07/13/21 12:50 Pulse 89 07/13/21 13:42 Resp 25 H 07/13/21 12:50 BP 123/64 07/13/21 12:50 Pulse Ox 95 07/13/21 13:00 Oxygen Flow Rate 15 07/13/21 11:44 Body Mass Index 39.8 Const: Other: Constitutional - Awake and Alert, No apparent distress Eyes - PERRLA, EOMI Cardiovascular - S1S2, RRR, No edema Respiratory - scattered bilateral wheezing, poor entry bilaterally, tachypnea with minimal exertion Gastrointestinal - NT / ND; +BS; No rebound or guarding - No CVA tenderness Extremities - no calf tenderness bilaterally, no swelling Musculoskeletal - Normal inspection, normal ROM Skin - Warm/Dry Neurological - Alert & oriented x3, No focal deficit Psychological - Appropriate affect Results Labs CBC and Chem 7: 07/13/21 12:25 07/13/21 12:25 Labs: Laboratory Results - last 24 hr 07/13/21 07/13/21 07/13/21 12:25 12:25 12:25 MCV 92.0 MCH 29.9 MCHC 32.5 RDW 13.0 Plt Count 266 MPV 9.6 Immature Gran % (Auto) 0.4 Neut % (Auto) 37.1 L Lymph % (Auto) 52.8 H [place] % (Auto) 7.1 Eos % (Auto) 1.6 Baso % (Auto) 1.0 Lymph # (Auto) 4.4 [place] # (Auto) 0.6 Eos # (Auto) 0.1 Baso # (Auto) 0.1 Abs Immat Gran (auto) 0.03 Absolute Neuts (auto) 3.1 Absolute Nucleated RBC 0.000 Nucleated RBC % (auto) 0.0 Anion Gap 9 L Estim Creat Clear Calc 149.8 Estimated GFR > 60 Random Glucose 83 Lactic Acid Calcium 7.1 L D Magnesium 2.1 Total Bilirubin 0.3 Direct Bilirubin < 0.2 AST 15 ALT 25 Alkaline Phosphatase 84 Total Protein 6.4 L Albumin 4.1 [place] COVID-19 (ENDY) COVID-19 Clin Com 07/13/21 07/13/21 07/13/21 12:25 12:25 13:03 MCV MCH MCHC RDW Plt Count MPV Immature Gran % (Auto) Neut % (Auto) Lymph % (Auto) [place] % (Auto) Eos % (Auto) Baso % (Auto) Lymph # (Auto) [place] # (Auto) Eos # (Auto) Baso # (Auto) Abs Immat Gran (auto) Absolute Neuts (auto) Absolute Nucleated RBC Nucleated RBC % (auto) Anion Gap Estim Creat Clear Calc Estimated GFR Random Glucose Lactic Acid 1.3 Calcium Magnesium Total Bilirubin Direct Bilirubin AST ALT Alkaline Phosphatase Total Protein Albumin [place] < 0.10 L COVID-19 (ENDY) Negative COVID-19 Clin Com See Note Imaging Radiologist's Impressions: Impressions Chest X-Ray 07/13/21 11:37 IMPRESSION: Unremarkable chest examination. Assessment and Plan (1) Acute hypokalemia: Status: Acute (2) Acute respiratory failure with hypoxia: Status: Acute (3) COPD exacerbation: Status: Acute (4) Bipolar I disorder: Status: Acute This is a 51 yo F with PMH of asthma / copd, active tobacco use despite education on its effects on her chronic respiratory illness, Bipolar disorder / PTSD who presents to the hospital with progressive shortness of breath due to e xacerbation of copd/asthma due to continual tobacco smoking. She has been non- compliant with treatment in the the past (signed out AMA) as well has medical advice (continues to smoke despite multiple medical admission for respiratory issues). She has been treated with an hour long bronchodilator rx in the ED, but continues to have wheezing with hypoxia and so will be admitted for further treatment. 1. Acute Respiratory failure with hypoxia secondary to COPD/Asthma exacerbations -- due to continual tobacco use SpO2 down to 87% POST treatment -- started on supplemental o2 --> continue to maintain saturations >90% 2. Acute COPD/asthma exacerbations continue IV steroids continue schduled + PRN bronchodilators 3. Tobacco use disorder continue to smoke despite negative effects on her health offered her NRT -- declines at this time 4. Mood continue baseline meds 5. HypoK repleted with 40me oral and 20med IV in the ED will give an additioanl 40meq this evening recheck K tomorrow Mag wnl Full Code DVT pptx, Lovenox Quality Stroke Does the patient have a stroke diagnosis?: No VTE Prior VTE?: No VTE Risk Level:: Medical - moderate - high VTE Device Contraindication: Treatment Not Indicated VTE Drug Contraindication: N/A - Med Ordered
[2021-07-13] MEDS: Potassium Chloride/H20 10 MEQ/100 ML PIGGYBACK 100 MEQ IV ×2 (14:31→16:51)
[2021-07-13] MEDS: Potassium Chloride ER 20 MEQ TAB.ER.PRT 40 MEQ PO (14:32)
[2021-07-13] MEDS: 0.9 % Sodium Chloride Flush 3 ML SYRINGE IVFLUSH ×2 (16:50→20:54)
[2021-07-13] MEDS: Potassium Chloride Packet 20 MEQ PACKET 40 MEQ PO (16:50)
[2021-07-13] MEDS: Enoxaparin Sodium 40 MG/0.4 ML SYRINGE SUBCUT (16:50)
[2021-07-13] MEDS: Albuterol/Iprat 2.5/0.5MG 3 ML AMPUL.NEB INHALE (20:09)
[2021-07-13] MEDS: OLANZapine 5 MG TABLET PO (20:51)
[2021-07-13] MEDS: Prazosin HCL 1 MG CAPSULE PO (20:51)
[2021-07-13] MEDS: methylPREDNISolone Sod Succ 40 MG/ML VIAL IVPUSH (20:52)
[2021-07-13] MEDS: traZODone HCL 50 MG TABLET 150 MG PO (20:52)
[2021-07-13] MEDS: Lithium Carbonate ER 300 MG TABLET.ER 600 MG PO (22:00)
[2021-07-14] VITALS (10 sets, daily range): BP systolic 110–158; BP diastolic 55–76; PULSE 68–100; RESP 12–20; TEMP 36.1–36.9; O2SAT 92–96
[2021-07-14] MEDS: Benzonatate 100 MG CAPSULE PO (05:48)
[2021-07-14] MEDS: Omeprazole 20 MG CAPSULE.DR PO (05:48)
[2021-07-14 08:10] LABS: Anion Gap 10 (12-20); Blood Urea Nitrogen 9 mg/dL (9-16); Carbon Dioxide 25 mmol/L (22-29); Chloride 109 mmol/L (96-108); Creatinine Clr Calc Pharmacy 147.2; Estimated Glomerular Filt Rate > 60; Glucose Random 118 mg/dL (60-115); Potassium 4.8 mmol/L (3.3-5.1); Sodium 139 mmol/L (135-145)
[2021-07-14] MEDS: Albuterol/Iprat 2.5/0.5MG 3 ML AMPUL.NEB INHALE ×3 (08:23→20:12)
[2021-07-14] MEDS: Sertraline HCL 50 MG TABLET PO (08:23)
[2021-07-14] MEDS: Cholecalciferol (Vitamin D3) 25 MCG TABLET PO (08:23)
[2021-07-14] MEDS: OLANZapine 5 MG TABLET PO ×2 (08:23→20:30)
[2021-07-14] MEDS: Ferrous Sulfate 324 MG TABLET.DR PO (08:23)
[2021-07-14] MEDS: Lithium Carbonate ER 300 MG TABLET.ER 600 MG PO ×2 (08:23→20:30)
[2021-07-14] MEDS: methylPREDNISolone Sod Succ 40 MG/ML VIAL IVPUSH ×3 (08:24→20:30)
[2021-07-14 08:34] LABS: Calcium 9.8 mg/dL (8.4-10.2)
--- NOTE | 2021-07-14 11:28 | P.PNIM_ITS ---
Progress Note: A&P (1) Asthma with exacerbation: Status: Acute (2) COPD exacerbation: Status: Acute Assessment and Plan: This is a 51 yo F with? PMH of asthma / copd, active tobacco use despite education on its effects on her chronic respiratory illness, Bipolar disorder / PTSD who presents to the hospital with progressive shortness of breath due to exacerbation of copd/asthma due to continual tobacco smoking. She has been non-compliant with treatment in the the past (signed out AMA) as well has medical advice (continues to smoke despite multiple medical admission for respiratory issues). She has been treated with an hour long bronchodilator rx in the ED, but continues to have wheezing with hypoxia and so will be admitted for further treatment. Acute Respiratory failure with hypoxia. Secondary to COPD/Asthma exacerbations due to continual tobacco use increased Solu-Medrol to 40 mg t.i.d. continue scheduled albuterol, supplemental oxygen as needed Tobacco use disorder continue to smoke despite negative effects on her health offered her NRT -- declines at this time Mood continue baseline meds HypoK repleted, follow BMP Full Code Lovenox Subjective Subjective Date of Service: 07/14/21 Review of Systems Follow up COPD exacerbation still with dry cough and wheeze denies chest pain, abdominal pain, nausea, vomiting, diarrhea All other systems are reviewed and are negative Physical Exam Vital Signs: Vital Signs: Last Vital Signs Temp 97.5 F 07/14/21 07:44 Pulse 68 07/14/21 08:24 Resp 20 07/14/21 07:44 BP 139/68 07/14/21 07:44 Pulse Ox 94 07/14/21 07:44 Oxygen Flow Rate 15 07/13/21 11:44 Body Mass Index 39.8 Appearing in no acute distress lung sounds expiratory wheezes heart regular rate rhythm, clear S1, S2 positive bowel sounds, abdomen is soft, nontender neuro patient is alert x3, no focal deficits Objective Data Current Medications Generic Name Dose Route Start Last Admin Trade Name Freq PRN Reason Stop Dose Admin Acetaminophen 650 mg 07/13/21 13:46 Acetaminophen 325 Mg Tablet PO Q6H PRN Pain, Mild (Pain Scale 1-3) Albuterol/Ipratropium 3 ml 07/13/21 16:00 07/14/21 08:23 Albuterol/Iprat 2.5/0.5mg 3 Ml Ampul.Neb INHALE 3 ml RQ4H WHILE AWAKE TEJA Administration Benzonatate 100 mg 07/14/21 04:22 07/14/21 05:48 Benzonatate 100 Mg Capsule PO 100 mg TID PRN Administration Cough Enoxaparin Sodium 40 mg 07/13/21 14:00 07/13/21 16:50 Enoxaparin Sodium 40 Mg/0.4 Ml Syringe SUBCUT 40 mg Q24H TEJA Administration Ferrous Sulfate 324 mg 07/14/21 09:00 07/14/21 08:23 Ferrous Sulfate 324 Mg Tablet. PO 324 mg DAILY TEJA Administration Guaifenesin 600 mg 07/14/21 11:30 Guaifenesin La 600 Mg Tab.Er.12h PO BID TEJA [place] Carbonate 600 mg 07/13/21 21:00 07/14/21 08:23 [place] Carbonate Er 300 Mg Tablet.Er PO 600 mg BID TEJA Administration Methylprednisolone Sodium Succinate 40 mg 07/14/21 15:00 Methylprednisolone Sod Succ 40 Mg/Ml Vial IVPUSH TID TEJA Olanzapine 5 mg 07/13/21 21:00 07/14/21 08:23 Olanzapine 5 Mg Tablet PO 5 mg BID TEJA Administration Omeprazole 20 mg 07/14/21 06:30 07/14/21 05:48 Omeprazole 20 Mg Capsule. PO 20 mg DAILY@0630 TEJA Administration Ondansetron HCl 4 mg 07/13/21 13:46 Ondansetron Hcl 4 Mg/2 Ml Vial IVPUSH Q8H PRN Nausea and Vomiting Pharmacy Consult 1 each 07/13/21 11:35 Consult Rx Perform Med Rec MISCELLANE ONCE PRN Consult order Prazosin HCl 1 mg 07/13/21 21:00 07/13/21 20:51 Prazosin Hcl 1 Mg Capsule PO 1 mg BEDTIME TEJA Administration Protocol Sertraline HCl 50 mg 07/14/21 09:00 07/14/21 08:23 Sertraline Hcl 50 Mg Tablet PO 50 mg DAILY TEJA Administration Sodium Chloride 3 ml 07/13/21 16:00 07/13/21 20:54 0.9 % Sodium Chloride Flush 3 Ml Syringe IVFLUSH 3 ml QSHIFT TEJA Administration Trazodone HCl 150 mg 07/13/21 21:00 07/13/21 20:52 Trazodone Hcl 50 Mg Tablet PO 150 mg BEDTIME TEJA Administration Vitamin D 25 mcg 07/14/21 09:00 07/14/21 08:23 Cholecalciferol (Vitamin D3) 25 Mcg Tablet PO 25 mcg DAILY TEJA Administration Labs CBC & Chem 7: 07/13/21 12:25 07/14/21 06:50 Labs: Laboratory Results - last 24 hr 07/13/21 07/13/21 07/13/21 12:25 12:25 12:25 MCV 92.0 MCH 29.9 MCHC 32.5 RDW 13.0 Plt Count 266 MPV 9.6 Immature Gran % (Auto) 0.4 Neut % (Auto) 37.1 L Lymph % (Auto) 52.8 H Levy % (Auto) 7.1 Eos % (Auto) 1.6 Baso % (Auto) 1.0 Lymph # (Auto) 4.4 Levy # (Auto) 0.6 Eos # (Auto) 0.1 Baso # (Auto) 0.1 Abs Immat Gran (auto) 0.03 Absolute Neuts (auto) 3.1 Absolute Nucleated RBC 0.000 Nucleated RBC % (auto) 0.0 Anion Gap 9 L Estim Creat Clear Calc 149.8 Estimated GFR > 60 Random Glucose 83 Lactic Acid Calcium 7.1 L D Magnesium 2.1 Total Bilirubin 0.3 Direct Bilirubin < 0.2 AST 15 ALT 25 Alkaline Phosphatase 84 Total Protein 6.4 L Albumin 4.1 [place] COVID-19 (ENDY) COVID-19 Clin Com 07/13/21 07/13/21 07/13/21 12:25 12:25 13:03 MCV MCH MCHC RDW Plt Count MPV Immature Gran % (Auto) Neut % (Auto) Lymph % (Auto) Levy % (Auto) Eos % (Auto) Baso % (Auto) Lymph # (Auto) Levy # (Auto) Eos # (Auto) Baso # (Auto) Abs Immat Gran (auto) Absolute Neuts (auto) Absolute Nucleated RBC Nucleated RBC % (auto) Anion Gap Estim Creat Clear Calc Estimated GFR Random Glucose Lactic Acid 1.3 Calcium Magnesium Total Bilirubin Direct Bilirubin AST ALT Alkaline Phosphatase Total Protein Albumin [place] < 0.10 L COVID-19 (ENDY) Negative COVID-19 Clin Com See Note 07/14/21 06:50 MCV MCH MCHC RDW Plt Count MPV Immature Gran % (Auto) Neut % (Auto) Lymph % (Auto) Levy % (Auto) Eos % (Auto) Baso % (Auto) Lymph # (Auto) Levy # (Auto) Eos # (Auto) Baso # (Auto) Abs Immat Gran (auto) Absolute Neuts (auto) Absolute Nucleated RBC Nucleated RBC % (auto) Anion Gap 10 L Estim Creat Clear Calc 147.2 Estimated GFR > 60 Random Glucose 118 H Lactic Acid Calcium 9.8 D Magnesium Total Bilirubin Direct Bilirubin AST ALT Alkaline Phosphatase Total Protein Albumin [place] COVID-19 (ENDY) COVID-19 Clin Com Quality Stroke Does the patient have a stroke diagnosis?: No VTE Prior VTE?: No VTE Risk Level:: Medical - moderate - high VTE Device Contraindication: Treatment Not Indicated VTE Drug Contraindication: N/A - Med Ordered
[2021-07-14] MEDS: 0.9 % Sodium Chloride Flush 3 ML SYRINGE IVFLUSH ×3 (11:53→20:32)
[2021-07-14] MEDS: guaiFENesin LA 600 MG TAB.ER.12H PO ×2 (11:53→20:30)
--- NOTE | 2021-07-14 14:15 | MHC.CM.PN ---
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 D/C PLAN: HOME W/NO SERVICES, PT WILL ARRANGE TRANPORT THERAPIST: LIZZIE AT [facility] [facility] PSYCHI[place]ST: JOE OROZCO
[2021-07-14] MEDS: Prazosin HCL 1 MG CAPSULE PO (20:30)
[2021-07-14] MEDS: traZODone HCL 50 MG TABLET 150 MG PO (20:30)
[2021-07-15 03:27] VITALS: BP 102/53; PULSE 60; RESP 17; TEMP 36.3; O2SAT 94
[2021-07-15 05:53] LABS: Hematocrit 42.3 % (37-47); Hemoglobin 13.4 g/dl (12.0-16.0); Mean Corpuscular HGB Conc 31.7 g/dl (31.0-35.0); Mean Corpuscular Hemoglobin 29.7 pg (27.0-33.0); Mean Corpuscular Volume 93.8 fL (80-98); Mean Platelet Volume 10.2 fL (9.4-12.3); Platelet Count 316 X10*3/uL (160-400); Red Blood Count 4.51 X10*6/uL (4.20-5.50); Red Cell Distribution Width 13.1 % (11.0-16.0); White Blood Count 15.4 X10*3/uL (4.8-10.8)
[2021-07-15] MEDS: Omeprazole 20 MG CAPSULE.DR PO (05:53)
[2021-07-15 06:28] LABS: Anion Gap 15 (12-20); Blood Urea Nitrogen 17 mg/dL (9-16); Calcium 9.9 mg/dL (8.4-10.2); Carbon Dioxide 24 mmol/L (22-29); Chloride 108 mmol/L (96-108); Estimated Glomerular Filt Rate > 60; Glucose Random 109 mg/dL (60-115); Potassium 4.9 mmol/L (3.3-5.1); Sodium 142 mmol/L (135-145)
[2021-07-15 07:44] VITALS: BP 148/72; PULSE 75; RESP 16; TEMP 36.1; O2SAT 95
[2021-07-15] MEDS: Albuterol/Iprat 2.5/0.5MG 3 ML AMPUL.NEB INHALE (08:14)
[2021-07-15 08:16] VITALS: PULSE 81; O2SAT 95
[2021-07-15] MEDS: methylPREDNISolone Sod Succ 40 MG/ML VIAL IVPUSH (08:42)
[2021-07-15] MEDS: 0.9 % Sodium Chloride Flush 3 ML SYRINGE IVFLUSH (08:42)
[2021-07-15] MEDS: Lithium Carbonate ER 300 MG TABLET.ER 600 MG PO (08:43)
[2021-07-15] MEDS: OLANZapine 5 MG TABLET PO (08:43)
[2021-07-15] MEDS: Cholecalciferol (Vitamin D3) 25 MCG TABLET PO (08:43)
[2021-07-15] MEDS: Ferrous Sulfate 324 MG TABLET.DR PO (08:43)
[2021-07-15] MEDS: Sertraline HCL 50 MG TABLET PO (08:43)
[2021-07-15] MEDS: guaiFENesin LA 600 MG TAB.ER.12H PO (08:43)
--- NOTE | 2021-07-15 10:28 | P.DS_ITS ---
DS: Providers Provider Date of Service: 07/15/21 Date of admission: 07/13/21 13:46 Primary care physician: [facility] Attending physician on discharge: Kevin Knight Discharging clinician: Carla Palmer DS: Diagnosis Discharge Diagnosis (1) Asthma with exacerbation: Status: Acute (2) COPD exacerbation: Status: Acute DS: Summary Hospital Course Hospital Course: [facility] This is a 51-year-old female with a past medical history as outlined below who despite multiple readmissions for exacerbation of her asthma/COPD continues to smoke tobacco daily and now presents to the hospital with complaints of progressive shortness of breath which became acutely worse on the day of admission.? This is the patient's 3rd admission for COPD exacerbation, with the last 1 being on 07/08/2021 during which she signed out against medical advice on the day after admission.? The patient has been educated multiple times by multiple providers on complete tobacco cessation, however she has not he did medical advice and continues to smoke.? Patient reports that she continues to smoke and on the day of presentation she began having trouble breathing and severe coughing spells which led her to call paramedics.? Upon arrival to the emergency room, she was given IV systemic steroids, an hour long updraft but remained persistently hypoxic into the mid to low 80s requiring supplemental oxygen to keep her saturations above 90. Additionally, she was noted to be hypokalemic and will be admitted for treatment for her respiratory symptoms.? She denies any fevers or chills.? She denies any known sick contacts, particularly COVID-19. She endorses that she has been vaccinated with Bonilla Bonilla is COVID-19 vaccine . COPD exacerbation. Treated with IV Solu-Medrol, albuterol scheduled. Patient continues to smoke, encouraged to quit tobacco as this is negatively affecting her health, she was offered nicotine replacement therapy but declined. She is significantly better today with oxygen saturation of 95% on room air. She will be sent home with a short prednisone taper. She can follow-up with her primary care provider as needed. Time Spent with Patient Time attestation: Total time spent providing and/or coordinating discharge services: Discharge coordination time: Greater than 30 minutes Quality: Stroke Does the patient have a stroke diagnosis?: No Physical Exam Vital Signs: Vital Signs: Last Vital Signs Temp 97.0 F 07/15/21 07:44 Pulse 81 07/15/21 08:16 Resp 16 07/15/21 07:44 BP 148/72 H 07/15/21 07:44 Pulse Ox 95 07/15/21 07:44 Oxygen Flow Rate 15 07/13/21 11:44 Body Mass Index 39.8 Appearing in no acute distress head is normocephalic atraumatic eyes pupils are PERRLA sclera is anicteric mouth throat mucous membranes are intact and moist neck is supple no lymphadenopathy, no JVD noted lung sounds very mild expiratory heart regular rate rhythm, clear S1, S2 positive bowel sounds, abdomen is soft, nontender neuro patient is alert x3, no focal deficits DS: Data Data Completed and Pending Labs on day of discharge: Laboratory Results - last 24 hr 07/15/21 07/15/21 05:32 05:32 WBC 15.4 H RBC 4.51 Hgb 13.4 Hct 42.3 MCV 93.8 MCH 29.7 MCHC 31.7 RDW 13.1 Plt Count 316 MPV 10.2 Absolute Nucleated RBC 0.000 Nucleated RBC % (auto) 0.0 Sodium 142 Potassium 4.9 Chloride 108 Carbon Dioxide 24 Anion Gap 15 BUN 17 H D Creatinine 0.70 Estim Creat Clear Calc 122.0 Estimated GFR > 60 Random Glucose 109 Calcium 9.9 Preliminary micro results at discharge 07/13/21 13:03 Blood Culture - Preliminary Blood - Venous No growth after 24 hours. 07/13/21 12:25 Blood Culture - Preliminary Blood - Venous No growth after 24 hours. Discharge Plan Discharge Anticipated Discharge Date/Time: 07/15/21 10:14 Patient Disposition: Home, Self-Care Discharge Diagnosis: COPD exacerbation Referrals: [facility] [Primary Care Provider] - 1 Week Discharge Medications: New prednisone 10 mg tablet 40 mg PO DAILY Qty: 16 RF: 0 Continued olanzapine 5 mg Tablet 5 mg PO BID Qty: 60 RF: 0 trazodone 50 mg Tablet 150 mg PO BEDTIME 30 Days Qty: 90 RF: 0 valacyclovir [Valtrex] 1 gram Tablet 1,000 mg PO BID 30 Days Qty: 60 RF: 0 lithium carbonate 300 mg Tablet Extended Release 600 mg PO BID 30 Days Qty: 120 RF: 0 omeprazole 20 mg Capsule,Delayed Release(Dr/Ec) 20 mg PO DAILY@0630 30 Days Qty: 30 RF: 0 albuterol sulfate 90 mcg/actuation HFA aerosol inhaler 2 puff inhalation QID PRN (Reason: wheezing) 30 Days Qty: 1 RF: 0 sertraline 50 mg Tablet 50 mg PO DAILY Qty: 30 RF: 0 cholecalciferol (vitamin D3) 25 mcg (1,000 unit) Tablet 25 mcg PO DAILY 30 Days Qty: 30 RF: 0 ferrous sulfate 324 mg (65 mg iron) Tablet,Delayed Release (Dr/Ec) 324 mg PO DAILY 30 Days Qty: 30 RF: 0 fluticasone propion-salmeterol 232-14 mcg/actuation aerosol powdr breath activated 1 inh inhalation BID 30 Days Qty: 1 RF: 0 prazosin 1 mg capsule 1 mg PO BEDTIME RF: 0 Spiriva Respimat 1.25 mcg/actuation Mist 2 puff INHALATION DAILY RF: 0 Discharge Orders: Discharge Order (Routine); Ordered 07/15/21 Ordered By: Carla Palmer Diet: advance to usual diet Activity on Discharge: As tolerated Stand Alone Forms: Patient Portal Discharge page Care Plan Goals: resolution of respiratory symptoms Health Concerns: COPD exacerbation Plan of Treatment: Continue medications as prescribed Follow-up with your primary care provider as needed Assessment: see discharge summary
--- NOTE | 2021-07-15 11:37 | MHC.CM.PN ---
PATIENT IS DC TO HOME - SELF CARE. RN AWARE OF PLAN.
== END 2021-07-15 11:49 | disposition home or self-care (01) | DRG 140 ==
LOC: HO.ED 13:23 → HO.EDOVER 14:03 → HO.S3 19:50
PROVIDERS: Admitting Provider Family Medicine; Emergency Provider Emergency Medicine; Visit Provider Nurse Practitioner Acute Care
DX: J44.1 Chronic obstructive pulmonary disease with (acute) exacerbation (principal); J96.01 Acute respiratory failure with hypoxia; J45.901 Unspecified asthma with (acute) exacerbation; E87.6 Hypokalemia; F39 Unspecified mood [affective] disorder; Z20.822 Contact with and (suspected) exposure to COVID-19; F17.210 Nicotine dependence, cigarettes, uncomplicated; Z71.6 Tobacco abuse counseling; Z88.0 Allergy status to penicillin; Z88.2 Allergy status to sulfonamides; Z88.6 Allergy status to analgesic agent; Z79.52 Long term (current) use of systemic steroids; Z79.899 Other long term (current) drug therapy
CPT/HCPCS: 36415; 71045; 80048; 80076; 80178; 83605; 83735; 85025; 85027; 87040; 87635; 93005; 94640; 94644; 94645; 96365; 96366; 96367; 96375; 99285; 99291; J1650; J2920; J2930; J3475

== ENCOUNTER 2021-07-21 21:15 | Inpatient (IN) | payer MEDICAID, SELFPAY ==
--- NOTE | 2021-07-21 | ECG_ITS ---
Test Reason : TACHYCARDIA Blood Pressure : / mmHG Vent. Rate : 107 BPM Atrial Rate : 107 BPM P-R Int : 122 ms QRS Dur : 086 ms QT Int : 340 ms P-R-T Axes : 053 042 035 degrees QTc Int : 453 ms Sinus tachycardia Otherwise normal ECG When compared with ECG of 13-JUL-2021 12:49, Heart rate has increased Referred By: Oswaldo Hollis Electronically Signed By:KEMAR BADILLO
--- NOTE | ~2021-07-21 | XR_ITS ---
EXAMINATION: XR CHEST CLINICAL INFORMATION: Cough and shortness of breath COMPARISON: 07/13/2021 TECHNIQUE: 2 views of the chest were obtained. FINDINGS: The heart and pulmonary vessels appear normal. Compared to the prior study, there is new patchy density seen at the lung bases which most likely represents some atelectasis but an early infiltrate cannot be totally excluded. No pleural effusions. XR/XR chest 2V IMPRESSION: Bibasilar atelectasis. An early infiltrate cannot be excluded.
[2021-07-21 21:23] VITALS: BP 137/72; PULSE 120; RESP 22; TEMP 36.8; O2SAT 94; BMI 43.6
[2021-07-21 21:47] VITALS: BP 116/69; PULSE 115; RESP 16; TEMP 36.8; O2SAT 95
[2021-07-21 21:55] VITALS: O2SAT 88
--- NOTE | 2021-07-21 21:55 | PC.NURSE ---
pt ambulated with stby to bathroom on room air, when patient went back to the bed her O2 sat was 88%, patient was placed back on O2 and recovered well.
[2021-07-21 22:00] VITALS: O2SAT 98
--- NOTE | 2021-07-21 22:00 | ED_ITS ---
HPI - General Adult General Chief complaint: Psychiatric Symptoms Stated complaint: SI w/Plan Time Seen by Provider: 07/21/21 21:39 Source: patient Mode of arrival: EMS Limitations: no limitations History of Present Illness HPI narrative: 51-year-old female who presents emergency department for evaluation of suicidal ideation. The patient states that she has been depressed for approximately 3 days. She states she has been thinking of a killing herself by cutting her throat. He she states that she has cut her arms in the past and has overdosed on medications in the past. The patient states that she has also been feeling short of breath approximately 2 weeks. She does have a history of COPD and she continues to smoke 1/2 pack of cigarettes per day. The she states that she has had an occasional cough which is nonproductive. Over the past 2 days she has had nausea and vomiting. She states she vomited approximately 6 times. She states she has also had 6 episodes of diarrhea. She states she has had constant fatigue over the past several months. She denies myalgias or arthralgias. The patient has been vaccinated against COVID-19 with the [employer] [place] shot. Related Data Home Medications Medication Instructions Recorded Confirmed prazosin 1 mg capsule 1 mg PO BEDTIME 06/22/21 07/13/21 tiotropium bromide 1.25 2 puff INHALATION DAILY 07/08/21 07/13/21 mcg/actuation mist for inhalation (Spiriva Respimat) Previous Rx's Medication Instructions Recorded albuterol sulfate 90 mcg/actuation 2 puff INHALATION QID PRN 30 Days 06/15/21 aerosol inhaler #1 g cholecalciferol (vitamin D3) 25 25 mcg PO DAILY 30 Days #30 tab 06/15/21 mcg (1,000 unit) tablet ferrous sulfate 324 mg (65 mg 324 mg PO DAILY 30 Days #30 tab 06/15/21 iron) tablet,delayed release fluticasone 232 mcg-salmeterol 14 1 inh INHALATION BID 30 Days #1 ea 06/15/21 mcg/actuation breath activated powdr lithium carbonate 300 mg 600 mg PO BID 30 Days #120 tab 06/15/21 tablet,extended release olanzapine 5 mg tablet 5 mg PO BID #60 tab 06/15/21 omeprazole 20 mg capsule,delayed 20 mg PO DAILY@0630 30 Days #30 cap 06/15/21 release sertraline 50 mg tablet 50 mg PO DAILY #30 tab 06/15/21 trazodone 50 mg tablet 150 mg PO BEDTIME 30 Days #90 tab 06/15/21 valacyclovir 1 gram tablet 1,000 mg PO BID 30 Days #60 tab 06/15/21 (Valtrex) prednisone 10 mg tablet 40 mg PO DAILY #16 tab 07/15/21 Allergies Allergy/AdvReac Type Severity Reaction Status Date / Time aspirin [Aspirin] Allergy Severe HIVES,THROAT Verified 06/05/21 21:34 SWELLS bee pollen [BEE STINGS] Allergy Severe ANAPHYLAXIS Verified 06/05/21 21:34 diphenhydramine Allergy Severe hives, Verified 06/05/21 21:34 [From BENADRYL ALLERGY] throat swells Penicillins [PCN] Allergy Severe HIVES Verified 06/05/21 21:34 THROAT SWELLS Sulfa (Sulfonamide Allergy Intermediate HIVES Verified 06/05/21 21:34 Antibiotics) [SULFA (SULFONAMIDE ANTIBIOTICS)] tramadol [TRAMADOL] Allergy Intermediate ITCHING Verified 06/05/21 21:34 latex [LATEX] Allergy Unknown UNKNOWN Verified 06/05/21 21:34 penicillin G Allergy Unknown Unknown Verified 06/05/21 21:34 levofloxacin [From Levaquin] Allergy Hives Verified 06/05/21 21:34 bee stings Allergy Unknown Unknown Uncoded 06/05/21 21:34 DairyCare Allergy Unknown Unknown Uncoded 06/05/21 21:34 sulfa drugs Allergy Unknown Unknown Uncoded 06/05/21 21:34 Review of Systems Review of Systems: Yes all other systems are reviewed and are negative PMFSH Past Medical History Medical History Asthma exacerbation in COPD Bipolar disorder Bipolar I disorder Borderline personality disorder Borderline personality disorder COPD (chronic obstructive pulmonary disease) Depression Drug abuse Herpes Intermittent explosive disorder FABIOLA (obstructive sleep apnea) Post traumatic stress disorder (PTSD) PTSD (post-traumatic stress disorder) PTSD (post-traumatic stress disorder) Tobacco use Surgical History History of ankle surgery History of appendectomy History of back surgery Hx of cholecystectomy Family History Family History Mother COPD (chronic obstructive pulmonary disease) Social History Social History Household Members: Other Household Members Other:: Pt states she hangs out with a male friend and a female friend Housing: House Housing Other:: will be getting apartment 07/01 Do you presently have visiting nurse or other home services: No Unable to assess alcohol history related to: Unknown Alcohol intake: never Patient Tobacco Use Status: Current everyday Tobacco user Tobacco use type: Cigarette Cigarette Packs Per Day: 1 Cigarettes Per Day: 20.0 Years Smoked: 17 e-Cigarette/Vaping Use: Never Used Second Hand Smoke Exposure: Yes Use of substances other than those prescribed or required for medical reasons: No Substance Use Type: Crack/Cocaine Advance Directives: Yes Advance Directives on File: Yes Advance Directives Date on File: 12/24/20 Patient : No service: No Current occupational status: unemployed and disabled Sexual orientation: Did not discuss Physical Exam Vital Signs: Vital Signs: Last Vital Signs Temp 98.3 F 07/21/21 21:47 Pulse 88 07/21/21 23:10 Resp 16 07/21/21 21:47 BP 116/69 07/21/21 21:47 Pulse Ox 98 07/21/21 22:00 Body Mass Index 43.6 Const: General: cooperative and no acute distress Orientation/consciousness: oriented to person and oriented to place Li mitations: no limitations HENMT: Head: Yes normal to inspection, Yes normocephalic and Yes atraumatic Ears: external ears normal General nose exam: Normal external nose present Face and sinus: Yes normal facial exam Mouth: Normal oral and palatal mucosa present Throat: Yes posterior oropharynx normal Eyes: General: appearance normal, both eyes and all related structures Pupils: Equal, round and reactive pupils present Neck: Neck: Yes normal visual inspection, Yes no lymphadenopathy, Yes trachea midline and Yes supple Chest: Chest palpation & inspection: normal inspection of the chest and normal palpation of entire chest wall Resp: Effort & Inspection: normal respiratory effort and able to speak in complete sentences Auscultation: rales (At bases) and wheezes (Diffuse) Cardio: Rate: regular rate Rhythm: regular rhythm Heart sounds: S1 normal heart sound present, S2 normal heart sound present and no murmurs GI: Inspection: Yes normal to inspection Palpation (GI): Soft to palpation, nontender and no guarding Auscultation: normal bowel sounds : General: Yes no CVA tenderness Back/Spine/Pelvis: Back: no CVA tenderness Skin: General skin exam: no rashes or lesions noted Neuro: General: oriented to person and oriented to place Cranial nerves: Yes CN's II-XII intact bilaterally and Yes Equal, round and reactive pupils present Cognition (Neuro): normal cognition Motor exam (neuro): 5/5 motor strength present throughout Extrem: General: Yes normal to inspection Psych: Appearance: grossly normal Speech and movement: Normal speech and movement present Affect: normal affect Attitude: cooperative Thought process: Normal thought process present Thought content: Normal thought content present Course Course Course Narrative: 51-year-old female with a history of bipolar disorder and depression who presents emergency department for evaluation of increased depression x3 days with suicidal ideation with a plan to cut her own throat. The patient also states that she has been having multiple episodes of vomiting and diarrhea over the past 2-3 days. She has also had an occasional productive cough and has felt short breath. Patient does have a history of COPD and c ontinues to smoke cigarettes. The patient was brought in by ambulance and her O2 saturation was 90% on room air. In the emergency department, the patient ambulated to the bathroom in her O2 saturation was 88% on room air therefore she was placed on oxygen 2 L via nasal cannula with her O2 saturation coming up to 96%. The patient did have diffuse wheezing and rales at the bases on her lung exam.. The patient will be worked up for possible pneumonia as well as evaluated her suicidal ideation. I ordered a two view chest x-ray, CBC, CMP, urinalysis, urine tox screen and COVID-19 test. Patient will be treated with Solu-Medrol 125 mg IV and an albuterol nebulizer pending her COVID-19 test. 0151: The patient's laboratory evaluation did reveal an elevated white blood cell count of 15,600. Urinalysis did reveal 1+ leukocyte esterase. Microscopic revealed 29 WBCs and 2+ bacteria with squamous cells. Urine tox screen was negative. Alcohol was below detectable limits. COVID-19 was negative. Given her cough x2 weeks, shortness of breath, wheezing and hypoxia, concerned that she may have pneumonia. Blood cultures x2 and a lactate was ordered. The patient will be treated with ceftriaxone 1 g IV and azithromycin 500 mg IV. I will discuss the patient's presentation with the covering hospitalist. 0212: I did discuss the patient's presentation with the covering hospitalist Dr. Macias and the patient will be admitted for further treatment. The patient did present with suicidal ideation with a plan, therefore she was placed on a Section 12. Once she is medically cleared she will need to be evaluated by Psychiatry/crisis for suicidal ideation in order to clear the Section 12 This Section 12 will need to be renewed ever the 3 business days. Medical Decision Making Lab Data Result diagrams: 07/21/21 22:39 07/21/21 22:39 Labs: Lab Results 07/21/21 07/21/21 07/21/21 Range/Units 21:44 22:08 22:08 WBC (4.8-10.8) X10*3/uL RBC (4.20-5.50) X10*6/uL Hgb (12.0-16.0) g/dl Hct (37-47) % MCV (80-98) fL MCH (27.0-33.0) pg MCHC (31.0-35.0) g/dl RDW (11.0-16.0) % Plt Count (160-400) X10*3/uL MPV (9.4-12.3) fL Immature Gran % (Auto) (0.0-0.4) % Neut % (Auto) (45-73) % Lymph % (Auto) (20-40) % [place] % (Auto) (2-11) % Eos % (Auto) (0-4) % Baso % (Auto) (0-2) % Lymph # (Auto) (1.2-4.9) X10*3/uL [place] # (Auto) (0.1-1.2) X10*3/uL Eos # (Auto) (0.0-0.4) X10*3/uL Baso # (Auto) (0.0-0.2) X10*3/uL Abs Immat Gran (auto) (0.00-0.03) X10*3/uL Absolute Neuts (auto) (2.0-8.3) X10*3/uL Absolute Nucleated RBC (0.0-0.012) X10*3/uL Nucleated RBC % (auto) (0.0-0.2) /100WBC Sodium (135-145) mmol/L Potassium (3.3-5.1) mmol/L Chloride (96-108) mmol/L Carbon Dioxide (22-29) mmol/L Anion Gap (12-20) BUN (9-16) mg/dL Creatinine (0.5-1.4) mg/dL Estim Creat Clear Calc Estimated GFR Random Glucose (60-115) mg/dL Calcium (8.4-10.2) mg/dL Total Bilirubin (0.0-1.0) mg/dL AST (5-31) U/L ALT (0-31) U/L Alkaline Phosphatase (39-117) U/L Total Protein (6.5-8.0) g/dL Albumin (3.5-5.0) g/dL Urine Color YELLOW Urine Appearance HAZY Urine pH 6.0 (5.0-8.0) Ur Specific [place] >= 1.030 H (1.005-1.025) Urine Protein NEG (NEG-TRACE) MG/DL Urine Glucose (UA) NEG (NEG) MG/DL Urine Ketones 5 (NEG) MG/DL Urine Blood NEG (NEG) Urine Nitrite NEG (NEG) Ur Leukocyte Esterase 1+ H (NEG) Urine RBC 5-9 H (0) /HPF Urine WBC 15-29 H (0-4) /HPF Ur Squamous Epith Cells 1+ /LPF Calcium Oxalate Crystal 3+ /LPF Urine Bacteria 2+ /LPF Urine Mucus 2+ /LPF Urine Trichomonas NOTED Urine Opiates Screen Not Detected (Not Detect) Urine Fentanyl Screen Not Detected (Not Detect) Ur Barbiturates Screen Not Detected (Not Detect) Ur Phencyclidine Scrn Not Detected (Not Detect) Ur Amphetamines Screen Not Detected (Not Detect) U Benzodiazepines Scrn Not Detected (Not Detect) Urine Cocaine Screen Not Detected (Not Detect) U Marijuana (THC) Screen Not Detected (Not Detect) Ethyl Alcohol mg/dL COVID-19 (ENDY) Negative (Negative) COVID-19 Clin Com See Note 07/21/21 07/21/21 07/21/21 Range/Units 22:39 22:39 22:39 WBC 15.6 H (4.8-10.8) X10*3/uL RBC 4.10 L (4.20-5.50) X10*6/uL Hgb 12.3 (12.0-16.0) g/dl Hct 38.6 (37-47) % MCV 94.1 (80-98) fL MCH 30.0 (27.0-33.0) pg MCHC 31.9 (31.0-35.0) g/dl RDW 13.4 (11.0-16.0) % Plt Count 291 (160-400) X10*3/uL MPV 9.6 (9.4-12.3) fL Immature Gran % (Auto) 0.6 H (0.0-0.4) % Neut % (Auto) 62.3 (45-73) % Lymph % (Auto) 30.0 (20-40) % [place] % (Auto) 5.9 (2-11) % Eos % (Auto) 0.8 (0-4) % Baso % (Auto) 0.4 (0-2) % Lymph # (Auto) 4.7 (1.2-4.9) X10*3/uL [place] # (Auto) 0.9 (0.1-1.2) X10*3/uL Eos # (Auto) 0.1 (0.0-0.4) X10*3/uL Baso # (Auto) 0.1 (0.0-0.2) X10*3/uL Abs Immat Gran (auto) 0.10 H (0.00-0.03) X10*3/uL Absolute Neuts (auto) 9.7 H (2.0-8.3) X10*3/uL Absolute Nucleated RBC 0.000 (0.0-0.012) X10*3/uL Nucleated RBC % (auto) 0.0 (0.0-0.2) /100WBC Sodium 142 (135-145) mmol/L Potassium 4.4 (3.3-5.1) mmol/L Chloride 109 H (96-108) mmol/L Carbon Dioxide 22 (22-29) mmol/L Anion Gap 15 (12-20) BUN 13 (9-16) mg/dL Creatinine 0.78 (0.5-1.4) mg/dL Estim Creat Clear Calc 111.4 Estimated GFR > 60 Random Glucose 112 (60-115) mg/dL Calcium 8.8 D (8.4-10.2) mg/dL Total Bilirubin 0.3 (0.0-1.0) mg/dL AST 14 (5-31) U/L ALT 20 (0-31) U/L Alkaline Phosphatase 65 D (39-117) U/L Total Protein 6.2 L (6.5-8.0) g/dL Albumin 3.9 (3.5-5.0) g/dL Urine Color Urine Appearance Urine pH (5.0-8.0) Ur Specific [place] (1.005-1.025) Urine Protein (NEG-TRACE) MG/DL Urine Glucose (UA) (NEG) MG/DL Urine Ketones (NEG) MG/DL Urine Blood (NEG) Urine Nitrite (NEG) Ur Leukocyte Esterase (NEG) Urine RBC (0) /HPF Urine WBC (0-4) /HPF Ur Squamous Epith Cells /LPF Calcium Oxalate Crystal /LPF Urine Bacteria /LPF Urine Mucus /LPF Urine Trichomonas Urine Opiates Screen (Not Detect) Urine Fentanyl Screen (Not Detect) Ur Barbiturates Screen (Not Detect) Ur Phencyclidine Scrn (Not Detect) Ur Amphetamines Screen (Not Detect) U Benzodiazepines Scrn (Not Detect) Urine Cocaine Screen (Not Detect) U Marijuana (THC) Screen (Not Detect) Ethyl Alcohol < 10 mg/dL COVID-19 (ENDY) (Negative) COVID-19 Clin Com Discharge Plan Discharge Patient Disposition: Admitted As Inpatient Prescriptions: No Action olanzapine 5 mg Tablet 5 mg PO BID Qty: 60 RF: 0 trazodone 50 mg Tablet 150 mg PO BEDTIME 30 Days Qty: 90 RF: 0 valacyclovir [Valtrex] 1 gram Tablet 1,000 mg PO BID 30 Days Qty: 60 RF: 0 lithium carbonate 300 mg Tablet Extended Release 600 mg PO BID 30 Days Qty: 120 RF: 0 omeprazole 20 mg Capsule,Delayed Release(Dr/Ec) 20 mg PO DAILY@0630 30 Days Qty: 30 RF: 0 albuterol sulfate 90 mcg/actuation HFA aerosol inhaler 2 puff inhalation QID PRN (Reason: wheezing) 30 Days Qty: 1 RF: 0 sertraline 50 mg Tablet 50 mg PO DAILY Qty: 30 RF: 0 cholecalciferol (vitamin D3) 25 mcg (1,000 unit) Tablet 25 mcg PO DAILY 30 Days Qty: 30 RF: 0 ferrous sulfate 324 mg (65 mg iron) Tablet,Delayed Release (Dr/Ec) 324 mg PO DAILY 30 Days Qty: 30 RF: 0 fluticasone propion-salmeterol 232-14 mcg/actuation aerosol powdr breath activated 1 inh inhalation BID 30 Days Qty: 1 RF: 0 prazosin 1 mg capsule 1 mg PO BEDTIME RF: 0 Spiriva Respimat 1.25 mcg/actuation Mist 2 puff INHALATION DAILY RF: 0 prednisone 10 mg tablet 40 mg PO DAILY Qty: 16 RF: 0
[2021-07-21 22:07] LABS: COVID-19 Test Negative (Negative); IDNOW Serial# 9DD0AD1C
--- NOTE | 2021-07-21 22:13 | PC.NURSE ---
pt to xray
--- NOTE | 2021-07-21 22:20 | PC.NURSE ---
respiratory called to give breathing treatment
[2021-07-21 22:21] LABS: Appearance Urine HAZY; Color Urine YELLOW; Glucose Urine UA NEG (NEG); Leukocyte Esterase Urine 1+ (NEG); Nitrite Urine NEG (NEG); Specific Gravity - Urine >= 1.030 (1.005-1.025); UACC Culture Trigger YES; Urine Blood NEG (NEG); Urine Ketones 5 MG/DL (NEG); Urine Protein NEG (NEG-TRACE)
[2021-07-21 22:39] LABS: Bacteria Urine 2+ /LPF; Calcium Oxalate Crystals Urine 3+ /LPF; Mucus Urine 2+ /LPF; Squamous Epithelial Cell Urine 1+ /LPF
[2021-07-21 22:41] LABS: Trichomonas Urine NOTED
[2021-07-21 22:43] LABS: MANUAL DIFF FLAG NO
[2021-07-21 22:44] LABS: Basophils Absolute Auto 0.1 X10*3/uL (0.0-0.2); Basophils Percent Auto 0.4 % (0-2); Eosinophils Absolute Auto 0.1 X10*3/uL (0.0-0.4); Eosinophils Percent Auto 0.8 % (0-4); Hematocrit 38.6 % (37-47); Hemoglobin 12.3 g/dl (12.0-16.0); Imm Gran Pct Auto 0.6 % (0.0-0.4); Lymphocytes Absolute Auto 4.7 X10*3/uL (1.2-4.9); Mean Corpuscular HGB Conc 31.9 g/dl (31.0-35.0); Mean Corpuscular Volume 94.1 fL (80-98); Mean Platelet Volume 9.6 fL (9.4-12.3); Monocytes Absolute Auto 0.9 X10*3/uL (0.1-1.2); Monocytes Percent Auto 5.9 % (2-11); Neutrophils Absolute Auto 9.7 X10*3/uL (2.0-8.3); Neutrophils Percent Auto 62.3 % (45-73); Platelet Count 291 X10*3/uL (160-400); Red Cell Distribution Width 13.4 % (11.0-16.0); White Blood Count 15.6 X10*3/uL (4.8-10.8)
[2021-07-21] MEDS: methylPREDNISolone Sod Succ 125 MG/2 ML VIAL IVPUSH (22:49)
--- NOTE | 2021-07-21 22:50 | PC.NURSE ---
iv inserted, labs drawn, pt medicated per order, will continue to monitor.
[2021-07-21 22:55] LABS: Ethanol < 10 mg/dL
[2021-07-21 23:03] LABS: Alanine Aminotransferase 20 U/L (0-31); Albumin Level 3.9 g/dL (3.5-5.0); Alkaline Phosphatase 65 U/L (39-117); Anion Gap 15 (12-20); Aspartate Amino Transferase 14 U/L (5-31); Bilirubin Total 0.3 mg/dL (0.0-1.0); Blood Urea Nitrogen 13 mg/dL (9-16); Calcium 8.8 mg/dL (8.4-10.2); Carbon Dioxide 22 mmol/L (22-29); Chloride 109 mmol/L (96-108); Creatinine Clr Calc Pharmacy 111.4; Estimated Glomerular Filt Rate > 60; Glucose Random 112 mg/dL (60-115); Potassium 4.4 mmol/L (3.3-5.1); Sodium 142 mmol/L (135-145); Total Protein 6.2 g/dL (6.5-8.0)
[2021-07-21] MEDS: Albuterol Sulfate (0.083%) 2.5 MG/3 ML VIAL.NEB INHALE (23:09)
[2021-07-21 23:10] VITALS: PULSE 88; O2SAT 94
[2021-07-22] VITALS (10 sets, daily range): BP systolic 112–141; BP diastolic 60–75; PULSE 68–96; RESP 14–20; TEMP 36.4–36.9; O2SAT 93–98
[2021-07-22 00:42] LABS: Amphetamine Screen Urine Not Detected (Not Detect); Barbiturates, Urine Not Detected (Not Detect); Benzodiazepines Screen Urine Not Detected (Not Detect); Cannabinoid Screen Urine Not Detected (Not Detect); Cocaine Screen Urine Not Detected (Not Detect); Fentanyl, urine Not Detected (Not Detect); Opiate Screen Urine Not Detected (Not Detect); Phencyclidine Screen Urine Not Detected (Not Detect)
[2021-07-22 03:04] LABS: Lactic Acid 1.9 mmol/L (0.5-2.0)
[2021-07-22] MEDS: cefTRIAXone sodium 1 GM in 0.9 % Sodium Chloride 50 ML IV ×2 (03:24→12:08)
[2021-07-22] MEDS: Azithromycin 500 MG in 0.9 % Sodium Chloride 250 ML 125 MG IV (03:28)
--- NOTE | 2021-07-22 03:37 | PC.NURSE ---
PT MEDICATED PER EMAR. PT SLEEPING, WAKES TO VOICE. PT DENIES ANY COMPLAINTS.
--- NOTE | 2021-07-22 06:08 | PM.IMHP ---
History of Present Illness Date of Service: 07/22/21 Chief Complaint: Suicidal ideation This is a 51-year-old female with extensive past medical history including COPD, depression, bipolar disorder, FABIOLA, PTSD, who presents to the hospital with complaints of suicidal ideation. Patient also reported that she has had a cough for 2 weeks, shortness of breath, as well as increased sputum production, nausea vomiting, diarrhea as well as generalized fatigue. On arrival to the ED patient was found to have a saturation of 88% on room air. She reports no recent sick contacts or travel. She denies any chest pain, no abdominal pain, no urinary symptoms and no lower extremity edema. Denies any headache, change in vision, no dizziness weakness numbness or tingling. On arrival to the ED vitals are significant for on room air, patient is now on 3 L of oxygen satting 93%, she has also had a temp of 98.3?, heart rate of 120, respiratory rate at of 22. Labs are significant for WBC count of 15.6, hemoglobin of 12.3, urine that shows leukocyte Estrace, WBC. Chest x-ray shows bibasilar atelectasis and an early infiltrate Patient will be admitted further manage Review of Systems Review of Systems: Yes all other systems are reviewed and are negative PMFSH Medical History Asthma exacerbation in COPD Bipolar disorder Bipolar I disorder Borderline personality disorder Borderline personality disorder COPD (chronic obstructive pulmonary disease) Depression Drug abuse Herpes Intermittent explosive disorder FABIOLA (obstructive sleep apnea) Post traumatic stress disorder (PTSD) PTSD (post-traumatic stress disorder) PTSD (post-traumatic stress disorder) Tobacco use Family History Mother COPD (chronic obstructive pulmonary disease) Pertinent family history: COPD in mother Surgical History History of ankle surgery History of appendectomy History of back surgery Hx of cholecystectomy Social History Household Members: Other Household Members Other:: Pt states she hangs out with a male friend and a female friend Housing: House Housing Other:: will be getting apartment 07/01 Do you presently have visiting nurse or other home services: No Unable to assess alcohol history related to: Unknown Alcohol intake: never Patient Tobacco Use Status: Current everyday Tobacco user Tobacco use type: Cigarette Cigarette Packs Per Day: 1 Cigarettes Per Day: 20.0 Years Smoked: 17 e-Cigarette/Vaping Use: Never Used Second Hand Smoke Exposure: Yes Use of substances other than those prescribed or required for medical reasons: No Substance Use Type: Crack/Cocaine Advance Directives: Yes Advance Directives on File: Yes Advance Directives Date on File: 12/24/20 Patient : No service: No Current occupational status: unemployed and disabled Sexual orientation: Did not discuss Meds Allergies Allergy/AdvReac Type Severity Reaction Status Date / Time aspirin [Aspirin] Allergy Severe HIVES,THROAT Verified 06/05/21 21:34 SWELLS bee pollen [BEE STINGS] Allergy Severe ANAPHYLAXIS Verified 06/05/21 21:34 diphenhydramine Allergy Severe hives, Verified 06/05/21 21:34 [From BENADRYL ALLERGY] throat swells Penicillins [PCN] Allergy Severe HIVES Verified 06/05/21 21:34 THROAT SWELLS Sulfa (Sulfonamide Allergy Intermediate HIVES Verified 06/05/21 21:34 Antibiotics) [SULFA (SULFONAMIDE ANTIBIOTICS)] tramadol [TRAMADOL] Allergy Intermediate ITCHING Verified 06/05/21 21:34 latex [LATEX] Allergy Unknown UNKNOWN Verified 06/05/21 21:34 penicillin G Allergy Unknown Unknown Verified 06/05/21 21:34 levofloxacin [From Levaquin] Allergy Hives Verified 06/05/21 21:34 bee stings Allergy Unknown Unknown Uncoded 06/05/21 21:34 DairyCare Allergy Unknown Unknown Uncoded 06/05/21 21:34 sulfa drugs Allergy Unknown Unknown Uncoded 06/05/21 21:34 Physical Exam Vital Signs and Narrative: Vital Signs: Last Vital Signs Temp 98.3 F 07/21/21 21:47 Pulse 85 07/22/21 03:42 Resp 18 07/22/21 03:42 BP 114/75 07/22/21 03:42 Pulse Ox 93 07/22/21 03:42 Body Mass Index 43.6 Const: General: cooperative and no acute distress Orientation/consciousness: patient oriented x3 Eyes: General: appearance normal, both eyes and all related structures Pupils: Equal, round and reactive pupils present Resp: Other: Wheezing, crackles bilateral Effort & Inspection: normal respiratory effort Cardio: Rate: regular rate Rhythm: regular rhythm GI: Palpation (GI): Soft to palpation Auscultation: normal bowel sounds Skin: General skin exam: no rashes or lesions noted Neuro: General: patient oriented x3 Cranial nerves: Yes Equal, round and reactive pupils present Cognition (Neuro): normal cognition Extrem: General: Yes normal to inspection and Yes no pedal edema Results Labs CBC and Chem 7: 07/21/21 22:39 07/21/21 22:39 Labs: Laboratory Results - last 24 hr 07/21/21 07/21/21 07/21/21 21:44 22:08 22:08 MCV MCH MCHC RDW Plt Count MPV Immature Gran % (Auto) Neut % (Auto) Lymph % (Auto) Deuel % (Auto) Eos % (Auto) Baso % (Auto) Lymph # (Auto) Deuel # (Auto) Eos # (Auto) Baso # (Auto) Abs Immat Gran (auto) Absolute Neuts (auto) Absolute Nucleated RBC Nucleated RBC % (auto) Anion Gap Estim Creat Clear Calc Estimated GFR Random Glucose Lactic Acid Calcium Total Bilirubin AST ALT Alkaline Phosphatase Total Protein Albumin Urine Color YELLOW Urine Appearance HAZY Urine pH 6.0 Ur Specific Soldier >= 1.030 H Urine Protein NEG Urine Glucose (UA) NEG Urine Ketones 5 Urine Blood NEG Urine Nitrite NEG Ur Leukocyte Esterase 1+ H Urine RBC 5-9 H Urine WBC 15-29 H Ur Squamous Epith Cells 1+ Calcium Oxalate Crystal 3+ Urine Bacteria 2+ Urine Mucus 2+ Urine Trichomonas NOTED Urine Opiates Screen Not Detected Urine Fentanyl Screen Not Detected Ur Barbiturates Screen Not Detected Ur Phencyclidine Scrn Not Detected Ur Amphetamines Screen Not Detected U Benzodiazepines Scrn Not Detected Urine Cocaine Screen Not Detected U Marijuana (THC) Screen Not Detected Ethyl Alcohol COVID-19 (ENDY) Negative COVID-19 Clin Com See Note 07/21/21 07/21/21 07/21/21 22:39 22:39 22:39 MCV 94.1 MCH 30.0 MCHC 31.9 RDW 13.4 Plt Count 291 MPV 9.6 Immature Gran % (Auto) 0.6 H Neut % (Auto) 62.3 Lymph % (Auto) 30.0 Deuel % (Auto) 5.9 Eos % (Auto) 0.8 Baso % (Auto) 0.4 Lymph # (Auto) 4.7 Deuel # (Auto) 0.9 Eos # (Auto) 0.1 Baso # (Auto) 0.1 Abs Immat Gran (auto) 0.10 H Absolute Neuts (auto) 9.7 H Absolute Nucleated RBC 0.000 Nucleated RBC % (auto) 0.0 Anion Gap 15 Estim Creat Clear Calc 111.4 Estimated GFR > 60 Random Glucose 112 Lactic Acid Calcium 8.8 D Total Bilirubin 0.3 AST 14 ALT 20 Alkaline Phosphatase 65 D Total Protein 6.2 L Albumin 3.9 Urine Color Urine Appearance Urine pH Ur Specific Soldier Urine Protein Urine Glucose (UA) Urine Ketones Urine Blood Urine Nitrite Ur Leukocyte Esterase Urine RBC Urine WBC Ur Squamous Epith Cells Calcium Oxalate Crystal Urine Bacteria Urine Mucus Urine Trichomonas Urine Opiates Screen Urine Fentanyl Screen Ur Barbiturates Screen Ur Phencyclidine Scrn Ur Amphetamines Screen U Benzodiazepines Scrn Urine Cocaine Screen U Marijuana (THC) Screen Ethyl Alcohol < 10 COVID-19 (ENDY) COVID-19 [place] [employer] Com 07/22/21 02:46 MCV MCH MCHC RDW Plt Count MPV Immature Gran % (Auto) Neut % (Auto) Lymph % (Auto) Deuel % (Auto) Eos % (Auto) Baso % (Auto) Lymph # (Auto) Deuel # (Auto) Eos # (Auto) Baso # (Auto) Abs Immat Gran (auto) Absolute Neuts (auto) Absolute Nucleated RBC Nucleated RBC % (auto) Anion Gap Estim Creat Clear Calc Estimated GFR Random Glucose Lactic Acid 1.9 Calcium Total Bilirubin AST ALT Alkaline Phosphatase Total Protein Albumin Urine Color Urine Appearance Urine pH Ur Specific Soldier Urine Protein Urine Glucose (UA) Urine Ketones Urine Blood Urine Nitrite Ur Leukocyte Esterase Urine RBC Urine WBC Ur Squamous Epith Cells Calcium Oxalate Crystal Urine Bacteria Urine Mucus Urine Trichomonas Urine Opiates Screen Urine Fentanyl Screen Ur Barbiturates Screen Ur Phencyclidine Scrn Ur Amphetamines Screen U Benzodiazepines Scrn Urine Cocaine Screen U Marijuana (THC) Screen Ethyl Alcohol COVID-19 (ENDY) COVID-19 Clin Com Imaging Radiologist's Impressions: Impressions Chest X-Ray 07/21/21 21:56 IMPRESSION: Bibasilar atelectasis. An early infiltrate cannot be excluded. Assessment and Plan (1) Pneumonia: Qualifiers: Laterality: left Lung location: lower lobe of lung Pneumonia type: due to unspecified organism Qualified Code(s): J18.9 - Pneumonia, unspecified organism Status: Acute (2) Suicidal ideation: Status: Acute (3) Acute respiratory failure with hypoxia: Status: Acute (4) Acute exacerbation of chronic obstructive pulmonary disease: Status: Acute (5) UTI (urinary tract infection): Status: Acute This is a 51-year-old female with past medical history of bipolar/depression, PTSD, COPD who presents to the hospital with complaints of suicidal ideation as well as cup of, and generally feeling unwell. Found to have pneumonia on chest x-ray and therefore will be admitted for further management of COPD exacerbation as well as pneumonia # community-acquired pneumonia - infiltration and chest x-ray - has leukocytosis, hypoxia, tachycardia, tachypnea - will treat with IV antibiotics - follow cultures - COVID19 is negative - will rule out influenza as well as RSV # acute hypoxic respiratory failure - secondary to pneumonia as well as COPD exacerbation - currently on 3 L of oxygen - treat pneumonia as well as COPD as below - monitor respiratory status # acute COPD exacerbation - has cough, increased sputum production, dyspnea - will treat her with Solu-Medrol 40 IV b.i.d., DuoNeb p.r.n. and scheduled - monitor respiratory status # UTI - IV antibiotics being administered for pneumonia will also cover UTI - follow cultures # suicidal ideation - will consult crisis team - will need admission to Behavioral Health once medically cleared # history of depression and bipolar - continue home psych medications DVT prophylaxis:lovenox Quality Stroke Does the patient have a stroke diagnosis?: No VTE Prior VTE?: No VTE Risk Level:: Medical - moderate - high VTE Device Contraindication: Treatment Not Indicated VTE Drug Contraindication: N/A - Med Ordered
--- NOTE | 2021-07-22 07:18 | PC.NURSE ---
report taken from alvaro bundy pt here for si, admitted as inpt for dyspnea. resting in stretcher, rr even/unlabored. sitter within reach. wctm for dc needs.
--- NOTE | 2021-07-22 11:41 | P.EN_ITS ---
Event Note Date of Service: 07/22/21 Event Note: Patient admitted overnight due to symptoms of shortness of breath and suicidal ideation, complaining of shortness of breath with minimal exertion, admits to smoking greater than 1 pack per day, has been feeling depressed for past few days and wanted to kill herself by cutting throat. On examination Awake alert no distress Lungs expiratory rhonchi Extremities no edema Assessment and plan 51-year-old female with past medical history of bipolar/depression, PTSD, COPD who presents to the hospital with complaints of suicidal ideation as well as cup of, and generally feeling unwell.? Found to have pneumonia on chest x-ray and therefore will be admitted for further management of COPD exacerbation as well as pneumonia # community-acquired pneumonia - noted to have leukocytosis, hypoxia, tachycardia, tachypnea On IV azithromycin and ceftriaxone day 11/06, will follow blood cultures COVID- 19 negative RSV/flu serology pending # acute hypoxic respiratory failure - secondary to pneumonia as well as COPD exacerbation and active tobacco use Not on home oxygen will gradually wean O2 # acute COPD exacerbation - persistent shortness of breath worse with exertion, persistent productive cough , continue IV Solumedrol 40 IV b.i.d., DuoNeb p.r.n. and scheduled - monitor respiratory status # tobacco use disorder Counseling done patient is agreeable for nicotine patch, informed recurrent COPD exacerbations related to nicotine use # UTI - positive urinalysis, on IV antibiotics being administered for pneumonia will also cover UTI will follow urine culture # suicidal ideation - will consult crisis team, and Behavioral Health once medically cleared # history of depression and bipolar continue home psych medications DVT prophylaxis:lovenox
[2021-07-22] MEDS: methylPREDNISolone Sod Succ 40 MG/ML VIAL IVPUSH ×2 (12:08→22:27)
[2021-07-22] MEDS: Enoxaparin Sodium 40 MG/0.4 ML SYRINGE SUBCUT (12:08)
[2021-07-22] MEDS: Nicotine 21 MG PATCH.TD24 TRANSDERMA (12:17)
--- NOTE | 2021-07-22 13:27 | PC.NURSE ---
pt med rec in progress, pt appears to sound wheezy, resp on their way for tx. pt calm and cooeprative. sitter within reach. awaiting bed assignment.
[2021-07-22] MEDS: Albuterol/Iprat 2.5/0.5MG 3 ML AMPUL.NEB INHALE ×2 (13:37→19:48)
--- NOTE | 2021-07-22 14:36 | PHA.MEDREC ---
Pharmacy Consult ? Medication Reconciliation Pharmacy has completed the medication reconciliation. Patient reports nothing has change since last vii. Called [facility] [place] to verify dose of inhalers. Christianne Iglesias, PharmD
--- NOTE | 2021-07-22 19:30 | MHC.CM.PN ---
CM met with admitted patient with bed assignment pending. Pt came into ED with SI and depression. Admitted medically with pneumonia, UTI, and COPD exacerbation. Lives with Isaac Zhu. HCP is . New HCP reviewed, completed and signed. HCP/S.O. Samson Marko ([phone]). Copies given and uploaded into [employer] and [employer]. Pt states she needs a walker. ?PT evaluation. Will need Care Team evaluation when medically stable. Pt denies SI at this time. Feels she felt that way because she was getting sick. Pt has no services. Pt and S.O. walk everywhere and have no access to a car. Will need transportation home. Pt fully vaccinated with J&J vaccine. D/C plan is home. CM to follow for d/c needs.
--- NOTE | 2021-07-22 20:00 | PC.NURSE ---
Patient began vomiting and vomit mostly bile. Patient given Zofran prn and is now receving a duoneb treatment.
[2021-07-22] MEDS: Lithium Carbonate 300 MG CAPSULE 600 MG PO (21:07)
[2021-07-22] MEDS: OLANZapine 5 MG TABLET PO (21:07)
[2021-07-22] MEDS: Prazosin HCL 1 MG CAPSULE PO (22:26)
[2021-07-22] MEDS: 0.9 % Sodium Chloride Flush 3 ML SYRINGE IVFLUSH (22:27)
[2021-07-22] MEDS: traZODone HCL 50 MG TABLET 150 MG PO (22:30)
[2021-07-23] VITALS (7 sets, daily range): BP systolic 106–133; BP diastolic 64–71; PULSE 67–93; RESP 18–20; TEMP 36.5–36.9; O2SAT 91–99
[2021-07-23 06:39] LABS: MANUAL DIFF FLAG NO
--- NOTE | 2021-07-23 06:50 | PC.NURSE ---
Assumed care of patient at 21:30. Pt came into ER with SI but denies ideation to this RN at this time. Pt had a patient observer in ER. Nursing community health nurse supervisor aware, telesitter in room.
[2021-07-23 06:52] LABS: Basophils Percent Auto 0.2 % (0-2); Hematocrit 39.3 % (37-47); Hemoglobin 12.3 g/dl (12.0-16.0); Imm Gran Abs Auto 0.28 X10*3/uL (0.00-0.03); Lymphocytes Absolute Auto 1.6 X10*3/uL (1.2-4.9); Lymphocytes Percent Auto 11.5 % (20-40); Mean Corpuscular HGB Conc 31.3 g/dl (31.0-35.0); Mean Corpuscular Volume 95.9 fL (80-98); Monocytes Absolute Auto 0.5 X10*3/uL (0.1-1.2); Monocytes Percent Auto 3.2 % (2-11); Neutrophils Absolute Auto 11.9 X10*3/uL (2.0-8.3); Neutrophils Percent Auto 83.1 % (45-73); Platelet Count 104 X10*3/uL (160-400); Red Cell Distribution Width 13.3 % (11.0-16.0); White Blood Count 14.3 X10*3/uL (4.8-10.8)
[2021-07-23] MEDS: Omeprazole 20 MG CAPSULE.DR PO (07:00)
[2021-07-23 07:11] LABS: Anion Gap 13 (12-20); Blood Urea Nitrogen 17 mg/dL (9-16); Calcium 9.4 mg/dL (8.4-10.2); Carbon Dioxide 24 mmol/L (22-29); Chloride 106 mmol/L (96-108); Creatinine Clr Calc Pharmacy 142.5; Estimated Glomerular Filt Rate > 60; Glucose Random 130 mg/dL (60-115); Potassium 4.9 mmol/L (3.3-5.1); Sodium 138 mmol/L (135-145)
[2021-07-23] MEDS: Albuterol/Iprat 2.5/0.5MG 3 ML AMPUL.NEB INHALE ×3 (07:34→15:37)
[2021-07-23] MEDS: Nicotine 21 MG PATCH.TD24 TRANSDERMA (08:12)
[2021-07-23] MEDS: Cholecalciferol (Vitamin D3) 25 MCG TABLET PO (08:13)
[2021-07-23] MEDS: Sertraline HCL 50 MG TABLET PO (08:13)
[2021-07-23] MEDS: Lithium Carbonate 300 MG CAPSULE 600 MG PO (08:13)
[2021-07-23] MEDS: 0.9 % Sodium Chloride Flush 3 ML SYRINGE IVFLUSH (08:13)
[2021-07-23] MEDS: OLANZapine 5 MG TABLET PO (08:13)
--- NOTE | 2021-07-23 09:42 | P.CDIC_ITS ---
CDI Concurrent Query Documentation Clarification: PHYSICIAN'S DOCUMENTATION REQUEST Date of Query: 07/23/21 0942 Patient Name: Bhavana Garza Admit Date: 07/22/21 Dear Doctor, A review of the medical record indicates additional documentation may be needed. Please review below and update the documentation accordingly. Clinical Indicators: Risk Factors/Clinical Indicators/Treatments Hypoxia, Tachycardia, Tachypnea placed on 3 liters oxygen w pulse ox 88%. WBC 15.6 RR 22 HR 115 IV Ceftriaxone, Azithromycin, IV Fluids, Oxygen. Given antibiotics to cover pneumonia and the UTI, Pneumonia, UTI, Acute hypoxic respiratory failure. Please clarify which, if any, of the following is the most likely etiology of the above symptoms and treatment rendered: * Sepsis * Systemic manifestations of infection, with 2 or more SIRS criteria which include: - Fever > 100.4F or hypothermia < 96.8 F - Leukocytosis - WBC > 12,000 or leukopenia, WBC < 4,000 or > 10% bands - Tachycardia > 90 beats/minute - Tachypnea - RR > 20 breaths/minute or PaCO2 < 32mmHg (Source: Merck Manual 2013) * Indicate the known or suspected underlying infection, such as UTI, pneumonia, or cellulitis * Indicate if a suspected bacterial infection of unknown source * Indicate if associated with an implanted device such as a F/C, PICC line, orthopedic hardware, etc. * Severe Sepsis * Sepsis with associated acute organ dysfunction, such as renal or res piratory failure * Other (please specify) * Unable to determine Use of terms such as suspected, likely, concern for, or probable (associated with a specific diagnosis that is being evaluated, monitored, or treated as if it exists) are acceptable and can be coded in the inpatient setting, when documented at the time of discharge. Thank you, Erica Mederos [facility], CDIS Extension: [phone] Please use your independent medical judgment in providing your response. THIS QUERY IS PART OF THE PERMANENT MEDICAL RECORD Provider Response: Pneumonia Other Diagnosis: sepsis
--- NOTE | 2021-07-23 09:50 | MHC.CDI.CONC ---
CDI Concurrent Query Documentation Clarification: PHYSICIAN'S DOCUMENTATION REQUEST Date of Query: 07/23/21 0950 Patient Name: Bhavana Garza Admit Date: 07/22/21 Dear Doctor, A review of the medical record indicates additional documentation may be needed. Please review below and update the documentation accordingly. Clinical Indicators: Risk Factors/Clinical Indicators/Treatments Body mass index: 43.6 FABIOLA If possible, please provide an associated diagnosis related to the abnormal BMI, such as: For a BMI >= 40: Overweight Obesity Due to excess calories Drug induced Due to other cause Severe or Morbid Obesity Use of terms such as suspected, likely, concern for, or probable (associated with a specific diagnosis that is being evaluated, monitored, or treated as if it exists) are acceptable and can be coded in the inpatient setting, when documented at the time of discharge. Thank you, Erica Mederos [facility], CDIS Extension: [phone] Please use your independent medical judgment in providing your response. THIS QUERY IS PART OF THE PERMANENT MEDICAL RECORD Provider Response: Other Other Diagnosis: obesity
--- NOTE | 2021-07-23 13:43 | MHC.CARE ---
CARE Team met with patient in room 468 for a risk assessment due to her making suicidal statements upon arrival to the ED yesterday. She was sitting up in bed reading a magazine, alert, oriented and engaged, her affect was bright, and she said she was feeling so much better. Patient directly denied any thoughts of suicide and has no plans or intention, regarding her declaration that she wanted to slit her throat she dismissed that as being, ?out of my mind because I could not breathe future oriented.? Patient has outpatient providers through [facility], attends appointments, takes? medication as prescribed, as a safe place to sleep and is aware of local resources. She did state that she does not have a PCP and was encouraged to call [facility] primary care offices. Patient is well known to the CARE Team through multiple evaluations and she is considered to be a good advocate for herself and has a solid understanding of when she needs help. At this time patient does not need a crisis evaluation or inpatient psychiatric care. MD and RN were updated; patient?s belongings were brought to her room from the POD.
--- NOTE | 2021-07-23 15:54 | MHC.CM.PN ---
Patient has been medically cleared for dc to home today, no services. Per RN, Patient is appropriate to dc via taxi. CM will provide Patient with a taxi voucher.
--- NOTE | 2021-07-23 15:55 | PM.DS ---
DS: Providers Provider Date of Service: 07/23/21 Date of admission: 07/22/21 02:17 Primary care physician: [facility] Consults: 07/22/21 02:17 Consult to Crisis Stat Reason for consultation: suicidal ideation Has provider been notified: No 07/23/21 11:02 Consult to Crisis Stat Reason for consultation: suicidal ideation Has provider been notified: No 07/23/21 11:37 Consult to Care Team Routine Comment: Reason for consultation: suicidal ideation DS: Diagnosis Discharge Diagnosis (1) Pneumonia: Status: Acute (2) Suicidal ideation: Status: Acute (3) Acute respiratory failure with hypoxia: Status: Acute (4) Acute exacerbation of chronic obstructive pulmonary disease: Status: Acute (5) UTI (urinary tract infection): Status: Acute DS: Summary Hospital Course Hospital Course: History of presenting illness Chief Complaint: Suicidal ideation 51-year-old female with extensive past medical history including COPD, depression, bipolar disorder, FABIOLA, PTSD, who presents to the hospital with complaints of suicidal ideation.? Patient also reported that she has had a cough for 2 weeks, shortness of breath, as well as increased sputum production, nausea vomiting, diarrhea as well as generalized fatigue.? On arrival to the ED patient was found to have a saturation of 88% on room air.? She reports no recent sick contacts or travel.? She denies any chest pain, no abdominal pain, no urinary symptoms and no lower extremity edema.? Denies any headache, change in vision, no dizziness weakness numbness or tingling. On arrival to the ED vitals are significant for on room air, patient is now on 3 L of oxygen satting 93%, she has also had a temp of 98.3?, heart rate of 120, respiratory rate at of 22. Labs are significant for WBC count of 15.6, hemoglobin of 12.3, urine that shows leukocyte Estrace, WBC. Chest x-ray shows bibasilar atelectasis and an early infiltrate Hospital course 51-year-old female with past medical history of bipolar/depression, PTSD, COPD who presents to the hospital with complaints of suicidal ideation and generally feeling unwell.? Found to have pneumonia on chest x-ray and therefore admitted for further management of COPD exacerbation, sepsis due to pneumonia with tachypnea, tachycardia, leukocytosis and acute hypoxic respiratory failure, patient treated with IV antibiotics, IV steroids updraft treatment, patient responded well to above treatment, shortness of breath, tachypnea tachycardia has resolved, leukocytosis likely contributed by steroids, oxygenating 94% on room air, therefore she is being discharged home on by mouth antibiotics, and has been strongly recommended to abstain from smoking and has been placed on nicotine patch, she has been recommended to continue home inhalers and to take prednisone 40mg for 4 more days. Patient also noted to be obese therefore recommended low-calorie diet weight reduction. In regard to suicidal ideation patient was seen by care team, patient is not suicidal anymore, she said she was out of her mind because she could not breathe and made that statement, she has outpatient providers. urinalysis was positive however urine culture came back negative patient does not have urinary tract infection In regard to depression and bipolar disorder she has been continued on all home medication Time Spent with Patient Time attestation: Total time spent providing and/or coordinating discharge services: Discharge coordination time: Greater than 30 minutes Quality: Stroke Does the patient have a stroke diagnosis?: No Physical Exam Vital Signs: Vital Signs: Last Vital Signs Temp 97.7 F 07/23/21 14:52 Pulse 93 07/23/21 15:41 Resp 20 07/23/21 14:52 BP 113/66 07/23/21 14:52 Pulse Ox 95 07/23/21 14:52 Body Mass Index 43.6 General no acute distress. Neck supple no JVD. CVS regular rate rhythm, Respiratory lungs clear to auscultation, no respiratory distress, no wheeze, no rhonchi. Gastrointestinal abdomen soft, nontender, bowel sounds audible, Extremities no edema. Neuro nonfocal , speech clear. Skin no rash Psych appropriate affect DS: Data Data Completed and Pending Labs on day of discharge: Laboratory Results - last 24 hr 07/23/21 07/23/21 06:13 06:13 WBC 14.3 H RBC 4.10 L Hgb 12.3 Hct 39.3 MCV 95.9 MCH 30.0 MCHC 31.3 RDW 13.3 Plt Count 104 L D MPV 12.0 Immature Gran % (Auto) 2.0 H Neut % (Auto) 83.1 H Lymph % (Auto) 11.5 L [place] % (Auto) 3.2 Eos % (Auto) 0.0 Baso % (Auto) 0.2 Lymph # (Auto) 1.6 [place] # (Auto) 0.5 Eos # (Auto) 0.0 Baso # (Auto) 0.0 Abs Immat Gran (auto) 0.28 H Absolute Neuts (auto) 11.9 H Absolute Nucleated RBC 0.000 Nucleated RBC % (auto) 0.0 Sodium 138 Potassium 4.9 Chloride 106 Carbon Dioxide 24 Anion Gap 13 BUN 17 H Creatinine 0.61 Estim Creat Clear Calc 142.5 Estimated GFR > 60 Random Glucose 130 H Calcium 9.4 D Preliminary micro results at discharge 07/22/21 02:46 Blood Culture - Preliminary Blood - Venous No growth after 24 hours. 07/22/21 02:43 Blood Culture - Preliminary Blood - Venous No growth after 24 hours. Discharge Plan Discharge Patient Disposition: Home, Self-Care Discharge Diagnosis: Acute hypoxic respiratory failure COPD exacerbation Pneumonia Tobacco use disorder Suicidal ideation Referrals: [place] [Primary Care Provider] - 1 Week Discharge Medications: New nicotine 21 mg/24 hr Patch 24 Hour 21 mg transdermal DAILY Qty: 30 RF: 0 cefuroxime axetil 500 mg Tablet 500 mg PO Q12H Qty: 10 RF: 0 Continued albuterol sulfate 90 mcg/actuation HFA aerosol inhaler 2 puff inhalation QID PRN (Reason: wheezing) RF: 0 valacyclovir 1 gram Tablet 1,000 mg PO BID RF: 0 prazosin 1 mg Capsule 1 mg PO BEDTIME RF: 0 olanzapine 5 mg Tablet 5 mg PO BID RF: 0 lithium carbonate 600 mg Capsule 600 mg PO BID RF: 0 trazodone 150 mg Tablet 150 mg PO BEDTIME RF: 0 omeprazole 20 mg Capsule,Delayed Release(Dr/Ec) 20 mg PO DAILY@0630 RF: 0 sertraline 50 mg Tablet 50 mg PO DAILY RF: 0 cholecalciferol (vitamin D3) 25 mcg (1,000 unit) Tablet 25 mcg PO DAILY RF: 0 ferrous sulfate 324 mg (65 mg iron) Tablet,Delayed Release (Dr/Ec) 324 mg PO DAILY RF: 0 tiotropium bromide 1.25 mcg/actuation Mist 2 puff INHALATION DAILY RF: 0 fluticasone propion-salmeterol [AirDuo RespiClick] 232-14 mcg/actuation Aerosol Powdr Breath Activated 1 inh INHALATION BID RF: 0 prednisone 20 mg Tablet 40 mg PO DAILY RF: 0 Discharge Orders: Discharge Order (Routine); Ordered 07/23/21 Ordered By: Eric Cavazos Diet: low fat, low cholesterol Activity on Discharge: As tolerated Stand Alone Forms: Patient Portal Discharge page Care Plan Goals: Acute hypoxic respiratory failure due to COPD exacerbation likely due to pneumonia and continued tobacco use, take Ceftin twice daily for 5 more days and use nicotine patch, Strongly recommended to abstain from smoking, take prednisone 40 mg daily for 4 more days. Use DuoNeb 4 times daily for the next 3 days patient has nebulizer machine and solution. Health Concerns: Tobacco use disorder/COPD continue all home inhalers as before stop smoking Plan of Treatment: Outpatient follow-up with primary care physician in 1 week Assessment: As above
== END 2021-07-23 17:03 | disposition home or self-care (01) | DRG 720 ==
LOC: HO.ED 07-22 02:15 → HO.EDOVER 07-22 02:22 → HO.IMC 07-22 19:58
PROVIDERS: Admitting Provider Internal Medicine; Emergency Provider Emergency Medicine Emergency Medical Services; Visit Provider Hospitalist
DX: A41.9 Sepsis, unspecified organism (principal); J96.01 Acute respiratory failure with hypoxia; J18.9 Pneumonia, unspecified organism; R45.851 Suicidal ideations; F17.210 Nicotine dependence, cigarettes, uncomplicated; Z59.0 Homelessness; Z20.822 Contact with and (suspected) exposure to COVID-19; Z71.6 Tobacco abuse counseling; F31.9 Bipolar disorder, unspecified; F43.10 Post-traumatic stress disorder, unspecified; J44.0 Chronic obstructive pulmonary disease with (acute) lower respiratory infection; J44.1 Chronic obstructive pulmonary disease with (acute) exacerbation; Z88.0 Allergy status to penicillin; Z88.2 Allergy status to sulfonamides; Z79.51 Long term (current) use of inhaled steroids; Z79.52 Long term (current) use of systemic steroids; Z79.899 Other long term (current) drug therapy
CPT/HCPCS: 36415; 71046; 80048; 80053; 80307; 81001; 82077; 83605; 85025; 87040; 87086; 87635; 93005; 94640; 99285; J0456; J0696; J1650; J2920; J2930

== ENCOUNTER 2021-09-07 16:33 | Inpatient (IN) | payer MEDICAID, SELFPAY ==
[2021-09-07 17:09] VITALS: BP 119/83; BP 149/86; PULSE 77; PULSE 89; RESP 18; TEMP 37.4; O2SAT 96; BMI 38.6
--- NOTE | 2021-09-07 17:18 | ECG_ITS ---
Test Reason : MED CLEARANCE Blood Pressure : / mmHG Vent. Rate : 076 BPM Atrial Rate : 076 BPM P-R Int : 158 ms QRS Dur : 084 ms QT Int : 428 ms P-R-T Axes : 057 049 019 degrees QTc Int : 481 ms Normal sinus rhythm Intra-ventricular conduction delay Nonspecific T wave abnormality Abnormal ECG When compared with ECG of 21-JUL-2021 21:39, Heart rate has decreased T wave amplitude has decreased in Anterolateral leads Inferior leads Referred By: Generic ED Physician Electronically Signed By:CHIKA SLAUGHTER MD
[2021-09-07 17:51] LABS: COVID-19 Test Negative (Negative)
[2021-09-07 17:52] LABS: Amphetamine Screen Urine Not Detected (Not Detect); Barbiturates, Urine Not Detected (Not Detect); Benzodiazepines Screen Urine Not Detected (Not Detect); Cannabinoid Screen Urine Not Detected (Not Detect); Cocaine Screen Urine POSITIVE (Not Detect); Fentanyl, urine Not Detected (Not Detect); Opiate Screen Urine Not Detected (Not Detect); Phencyclidine Screen Urine Not Detected (Not Detect)
--- NOTE | 2021-09-07 17:59 | PC.NURSE ---
[facility] CALLED TO DO LAB WORK
[2021-09-07 18:15] LABS: Appearance Urine HAZY; Color Urine YELLOW; Glucose Urine UA NEG (NEG); Leukocyte Esterase Urine 3+ (NEG); Nitrite Urine NEG (NEG); Specific Gravity - Urine 1.015 (1.005-1.025); UACC Culture Trigger YES; Urine Blood NEG (NEG); Urine Ketones 5 MG/DL (NEG); Urine Protein TRACE MG/DL (NEG-TRACE)
[2021-09-07 18:20] LABS: Basophils Absolute Auto 0.1 X10*3/uL (0.0-0.2); Basophils Percent Auto 1.1 % (0-2); Eosinophils Absolute Auto 0.1 X10*3/uL (0.0-0.4); Eosinophils Percent Auto 1.6 % (0-4); Hematocrit 39.8 % (37.0-47.0); Hemoglobin 12.9 g/dl (12.0-16.0); Imm Gran Abs Auto 0.02 X10*3/uL (0.00-0.03); Imm Gran Pct Auto 0.3 % (0.0-0.4); Lymphocytes Absolute Auto 2.4 X10*3/uL (1.2-4.9); Lymphocytes Percent Auto 32.3 % (20-40); MANUAL DIFF FLAG NO; Mean Corpuscular HGB Conc 32.4 g/dl (31.0-35.0); Mean Corpuscular Hemoglobin 30.2 pg (27.0-33.0); Mean Corpuscular Volume 93.2 fL (80.0-98.0); Monocytes Absolute Auto 0.4 X10*3/uL (0.1-1.2); Monocytes Percent Auto 5.4 % (2-11); Neutrophils Absolute Auto 4.4 x10*3/uL (2.0-8.3); Neutrophils Percent Auto 59.3 % (45-73); Platelet Count 260 X10*3/uL (160-400); Red Blood Count 4.27 X10*6/uL (4.20-5.50); Red Cell Distribution Width 13.1 % (11.0-16.0); White Blood Count 7.4 X10*3/uL (4.8-10.8)
[2021-09-07 18:35] LABS: Ethanol < 10 mg/dL
[2021-09-07 18:37] LABS: Anion Gap 12 (12-20); Blood Urea Nitrogen 8 mg/dL (9-16); Calcium 9.9 mg/dL (8.4-10.2); Carbon Dioxide 29 mmol/L (22-29); Chloride 104 mmol/L (96-108); Creatinine Clr Calc Pharmacy 103.9; Estimated Glomerular Filt Rate > 60; Glucose Random 110 mg/dL (60-115); Potassium 4.5 mmol/L (3.3-5.1); Sodium 140 mmol/L (135-145)
[2021-09-07 20:00] LABS: Bacteria Urine TRACE /LPF; Mucus Urine TRACE /LPF; Squamous Epithelial Cell Urine 4+ /LPF
[2021-09-07] MEDS: Lithium Carbonate 300 MG CAPSULE 600 MG PO (23:21)
[2021-09-07] MEDS: traZODone HCL 50 MG TABLET 150 MG PO (23:27)
[2021-09-07 23:29] VITALS: BP 109/56; PULSE 62
[2021-09-07] MEDS: Prazosin HCL 1 MG CAPSULE 2 MG PO (23:29)
[2021-09-07] MEDS: OLANZapine 5 MG TABLET PO (23:34)
[2021-09-07 23:36] VITALS: BP 109/56; PULSE 62; RESP 18; TEMP 36.6; O2SAT 92
--- NOTE | 2021-09-08 01:05 | ED.PSYCH ---
HPI - Psych General Chief Complaint: Psychiatric Symptoms <LASHONDA Jeffries - Last Filed: 09/08/21 01:18> Stated Complaint: crisis <LASHONDA Jeffries Last Filed: 09/08/21 01:18> Time Seen by Provider: 09/07/21 22:39 <LASHONDA Jeffries Last Filed: 09/08/21 01:18> Source: patient <LASHONDA Jeffries Last Filed: 09/08/21 01:18> Mode of arrival: ambulatory <LASHONDA Jeffries Last Filed: 09/08/21 01:18> Limitations: no limitations <LASHONDA Jeffries Last Filed: 09/08/21 01:18> History of Present Illness HPI Narrative: Patient presents to ED for suicidal ideation with plan to jump off from building. Patient admits to taking crack. Patient has a regular here for suicide and depression. <LASHONDA Jeffries Last Filed: 09/08/21 01:18> Related Data Home Medications: Home Medications Medication Instructions Recorded Confirmed albuterol sulfate 90 mcg/actuation 2 puff INHALATION QID PRN 07/22/21 09/07/21 aerosol inhaler cholecalciferol (vitamin D3) 25 25 mcg PO DAILY 07/22/21 09/07/21 mcg (1,000 unit) tablet ferrous sulfate 324 mg (65 mg 324 mg PO DAILY 07/22/21 09/07/21 iron) tablet,delayed release fluticasone 232 mcg-salmeterol 14 1 inh INHALATION BID 07/22/21 09/07/21 mcg/actuation breath activated powdr (AirDuo RespiClick) lithium carbonate 600 mg capsule 600 mg PO BID 07/22/21 09/07/21 olanzapine 5 mg tablet 5 mg PO BID 07/22/21 09/07/21 omeprazole 20 mg capsule,delayed 20 mg PO DAILY@0630 07/22/21 09/07/21 release prazosin 1 mg capsule 2 mg PO BEDTIME 07/22/21 09/07/21 prednisone 20 mg tablet mg PO DAILY 07/22/21 07/22/21 sertraline 50 mg tablet 50 mg PO DAILY 07/22/21 09/07/21 trazodone 150 mg tablet 150 mg PO BEDTIME 07/22/21 09/07/21 valacyclovir 1 gram tablet 1,000 mg PO BID 07/22/21 09/07/21 <LASHONDA Jeffries Last Filed: 09/08/21 01:18> Allergies/Adverse Reactions: Allergies Allergy/AdvReac Type Severity Reaction Status Date / Time aspirin [Aspirin] Allergy Severe HIVES,THROAT Verified 06/05/21 21:34 SWELLS bee pollen [BEE STINGS] Allergy Severe ANAPHYLAXIS Verified 06/05/21 21:34 diphenhydramine Allergy Severe hives, Verified 06/05/21 21:34 [From BENADRYL ALLERGY] throat swells Penicillins [PCN] Allergy Severe HIVES Verified 06/05/21 21:34 THROAT SWELLS Sulfa (Sulfonamide Allergy Intermediate HIVES Verified 06/05/21 21:34 Antibiotics) [SULFA (SULFONAMIDE ANTIBIOTICS)] tramadol [TRAMADOL] Allergy Intermediate ITCHING Verified 06/05/21 21:34 latex [LATEX] Allergy Unknown UNKNOWN Verified 06/05/21 21:34 penicillin G Allergy Unknown Unknown Verified 06/05/21 21:34 levofloxacin [From Levaquin] Allergy Hives Verified 06/05/21 21:34 bee stings Allergy Unknown Unknown Uncoded 06/05/21 21:34 DairyCare Allergy Unknown Unknown Uncoded 06/05/21 21:34 sulfa drugs Allergy Unknown Unknown Uncoded 06/05/21 21:34 <LASHONDA Jeffries Last Filed: 09/08/21 01:18> Review of Systems Review of Systems: Yes all other systems are reviewed and are negative <LASHONDA Jeffries Last Filed: 09/08/21 01:18> Constitutional: Constitutional: Reports as per HPI and Reports no additional constitutional complaints <LASHONDA Jeffries Last Filed: 09/08/21 01:18> Eyes: Eyes: Reports as per HPI and Reports no additional eye complaints <LASHONDA Jeffries Last Filed: 09/08/21 01:18> ENT: Reports system reviewed and no additional complaints, except as documented and Reports as per HPI <LASHONDA Jeffries Last Filed: 09/08/21 01:18> Cardiovascular: Cardiovascular: Reports as per HPI and Reports no additional cardiovascular complaints <LASHONDA Jeffries Last Filed: 09/08/21 01:18> Respiratory: Respiratory: Reports as per HPI and Reports no additional respiratory complaints <LASHONDA Jeffries Last Filed: 09/08/21 01:18> Gastrointestinal: Gastrointestinal: Reports as per HPI and Reports no additional gastrointestinal complaints <LASHONDA Jeffries Last Filed: 09/08/21 01:18> Musculoskeletal: Musculoskeletal: Reports no additional musculoskeletal complaints and Reports as per HPI <LASHONDA Jeffries Last Filed: 09/08/21 01:18> Neurologic: Reports system reviewed and no additional complaints, except as documented and Reports as per HPI <LASHONDA Jeffries Last Filed: 09/08/21 01:18> Psychiatric: Psychiatric: Reports no additional psychiatric complaints and Reports as per HPI <LASHONDA Jeffries Last Filed: 09/08/21 01:18> Comments: Suicide depression <LASHONDA Jeffries Last Filed: 09/08/21 01:18> PMFSH Past Medical History Medical History: Medical History Asthma exacerbation in COPD Bipolar disorder Bipolar I disorder Borderline personality disorder Borderline personality disorder COPD (chronic obstructive pulmonary disease) Depression Drug abuse Herpes Intermittent explosive disorder FABIOLA (obstructive sleep apnea) Post traumatic stress disorder (PTSD) PTSD (post-traumatic stress disorder) PTSD (post-traumatic stress disorder) Tobacco use <LASHONDA Jeffries Last Filed: 09/08/21 01:18> Surgical History: Surgical History History of ankle surgery History of appendectomy History of back surgery Hx of cholecystectomy <LASHONDA Jeffries Last Filed: 09/08/21 01:18> Family History Family History: Family History Mother COPD (chronic obstructive pulmonary disease) <LASHONDA Jeffries Last Filed: 09/08/21 01:18> Social History Social History: Social History Household Members: None Household Members Other:: Pt states she hangs out with a male friend and a female friend Housing: Homeless Housing Other:: will be getting apartment 07/01 Do you presently have visiting nurse or other home services: No Unable to assess alcohol history related to: Unknown Alcohol intake: never Patient Tobacco Use Status: Current everyday Tobacco user Tobacco use type: Cigarette Cigarette Packs Per Day: 1 Cigarettes Per Day: 20.0 Years Smoked: 17 e-Cigarette/Vaping Use: Never Used Second Hand Smoke Exposure: Yes Substance Use Type: Crack/Cocaine Advance Directives: Yes Advance Directives on File: Yes Advance Directives Date on File: 12/24/20 Patient : No service: No Current occupational status: unemployed and disabled Sexual orientation: Did not discuss <LASHONDA Jeffries Last Filed: 09/08/21 01:18> Physical Exam Vital Signs: Vital Signs: Last Vital Signs Temp 97.9 F 09/07/21 23:36 Pulse 62 09/07/21 23:36 Resp 18 09/07/21 23:36 BP 109/56 L 09/07/21 23:36 Pulse Ox 92 09/07/21 23:36 Body Mass Index 38.6 <LASHONDA Jeffries Last Filed: 09/08/21 01:18> Vital Signs: Last Vital Signs Temp 97.9 F 09/07/21 23:36 Pulse 62 09/07/21 23:36 Resp 18 09/07/21 23:36 BP 109/56 L 09/07/21 23:36 Pulse Ox 92 09/07/21 23:36 Body Mass Index 38.6 <LASHONDA Diamond - Last Filed: 09/08/21 09:24> Const: General: cooperative, healthy appearing, comfortable, no acute distress, well developed, alert, awake and Physically active <LASHONDA Jeffries Last Filed: 09/08/21 01:18> Orientation/consciousness: patient oriented x3 <LASHONDA Jeffries Last Filed: 09/08/21 01:18> HENMT: Head: Yes normal to inspection, Yes No palpable skull fracture present, Yes normocephalic, Yes atraumatic and No abrasion <LASHONDA Jeffries Last Filed: 09/08/21 01:18> Eyes: General: appearance normal, both eyes and all related structures <LASHONDA Jeffries Last Filed: 09/08/21 01:18> Neck: Neck: Yes normal visual inspection, Yes full ROM, Yes no lymphadenopathy, Yes no meningeal signs, Yes trachea midline, Yes supple and No tender <LASHONDA Jeffries Last Filed: 09/08/21 01:18> Chest: Chest palpation & inspection: normal inspection of the chest and normal palpation of entire chest wall <LASHONDA Jeffries Last Filed: 09/08/21 01:18> Resp: Effort & Inspection: normal respiratory effort and able to speak in complete sentences <LASHONDA Jeffries Last Filed: 09/08/21 01:18> Auscultation: clear to auscultation bilaterally <LASHONDA Jeffries Last Filed: 09/08/21 01:18> Cardio: Jugular venous distension: no JVD <LASHONDA Jeffries Filed: 09/08/21 01:18> Heart sounds: S1 normal heart sound present and S2 normal heart sound present <LASHONDA Jeffries Filed: 09/08/21 01:18> GI: Inspection: Yes normal to inspection and No abdominal wall ecchymosis <LASHONDA Jeffries Filed: 09/08/21 01:18> Palpation (GI): Soft to palpation, not firm, nontender, no guarding and not rigid <LASHONDA Jeffries Last Filed: 09/08/21 01:18> : General: No CVA tenderness and Yes no CVA tenderness <LASHONDA Jeffries Filed: 09/08/21 01:18> Back/Spine/Pelvis: Back: no CVA tenderness, No CVA tenderness and No back tenderness <LASHONDA Jeffries Last Filed: 09/08/21 01:18> Skin: General skin exam: no rashes or lesions noted and elasticity normal <LASHONDA Jeffries Last Filed: 09/08/21 01:18> Neuro: General: patient oriented x3, gait normal, no meningeal signs and CN's II-XI intact bilaterally <LASHONDA Jeffries Last Filed: 09/08/21 01:18> Cranial nerves: Yes CN's II-XII intact bilaterally <LASHONDA Jeffries Last Filed: 09/08/21 01:18> Extrem: General: Yes normal to inspection and Yes full ROM <LASHONDA Jeffries - Last Filed: 09/08/21 01:18> Psych: Other: Depression <LASHONDA Jeffries Last Filed: 09/08/21 01:18> Appearance: grossly normal, well kempt and not disheveled <LASHONDA Jeffries - Last Filed: 09/08/21 01:18> Course Course Course Narrative: Labs <LASHONDA Jeffries Last Filed: 09/08/21 01:18> Reevaluation(s) Reevaluation #1: Patient awaiting crisis evaluation <LASHONDA Jeffries - Last Filed: 09/08/21 01:18> Reevaluation #2: 09/08/21922--physician observe patient continued. Vital signs were stable. No complaints overnight, labs reviewed. UA with multiple wbc's however contaminated, will wait for culture <LASHONDA Diamond - Last Filed: 09/08/21 09:24> MDM - Psych MDM Narrative Medical decision making narrative: Depression <LASHONDA Jeffries Last Filed: 09/08/21 01:18> Lab Data Result diagrams: : 09/07/21 18:14 09/07/21 18:14 <LASHONDA Jeffries - Last Filed: 09/08/21 01:18> Labs: Lab Results 09/07/21 09/07/21 09/07/21 Range/Units 17:25 17:25 17:25 WBC (4.8-10.8) X10*3/uL RBC (4.20-5.50) X10*6/uL Hgb (12.0-16.0) g/dl Hct (37.0-47.0) % MCV (80.0-98.0) fL MCH (27.0-33.0) pg MCHC (31.0-35.0) g/dl RDW (11.0-16.0) % Plt Count (160-400) X10*3/uL MPV (9.4-12.3) fL Immature Gran % (Auto) (0.0-0.4) % Neut % (Auto) (45-73) % Lymph % (Auto) (20-40) % [place] % (Auto) (2-11) % Eos % (Auto) (0-4) % Baso % (Auto) (0-2) % Lymph # (Auto) (1.2-4.9) X10*3/uL [place] # (Auto) (0.1-1.2) X10*3/uL Eos # (Auto) (0.0-0.4) X10*3/uL Baso # (Auto) (0.0-0.2) X10*3/uL Abs Immat Gran (auto) (0.00-0.03) X10*3/uL Absolute Neuts (auto) (2.0-8.3) x10*3/uL Absolute Nucleated RBC (0.0-0.012) X10*3/uL Nucleated RBC % (auto) (0.0-0.2) /100WBC Sodium (135-145) mmol/L Potassium (3.3-5.1) mmol/L Chloride (96-108) mmol/L Carbon Dioxide (22-29) mmol/L Anion Gap (12-20) BUN (9-16) mg/dL Creatinine (0.5-1.4) mg/dL Estim Creat Clear Calc Estimated GFR Random Glucose (60-115) mg/dL Calcium (8.4-10.2) mg/dL Urine Color YELLOW Urine Appearance HAZY Urine pH 7.0 (5.0-8.0) Ur Specific [place] 1.015 (1.005-1.025) Urine Protein TRACE (NEG-TRACE) MG/DL Urine Glucose (UA) NEG (NEG) MG/DL Urine Ketones 5 (NEG) MG/DL Urine Blood NEG (NEG) Urine Nitrite NEG (NEG) Ur Leukocyte Esterase 3+ H (NEG) Urine RBC 1-4 (0) /HPF Urine WBC 10-14 H (0-4) /HPF Ur Squamous Epith Cells 4+ /LPF Urine Bacteria TRACE /LPF Urine Mucus TRACE /LPF Urine Opiates Screen Not Detected (Not Detect) Urine Fentanyl Screen Not Detected (Not Detect) Ur Barbiturates Screen Not Detected (Not Detect) Ur Phencyclidine Scrn Not Detected (Not Detect) Ur Amphetamines Screen Not Detected (Not Detect) U Benzodiazepines Scrn Not Detected (Not Detect) Urine Cocaine Screen POSITIVE H (Not Detect) U Marijuana (THC) Screen Not Detected (Not Detect) Ethyl Alcohol mg/dL COVID-19 (ENDY) Negative (Negative) COVID-19 Clin Com See Note 09/07/21 09/07/21 09/07/21 Range/Units 18:14 18:14 18:14 WBC 7.4 (4.8-10.8) X10*3/uL RBC 4.27 (4.20-5.50) X10*6/uL Hgb 12.9 (12.0-16.0) g/dl Hct 39.8 (37.0-47.0) % MCV 93.2 (80.0-98.0) fL MCH 30.2 (27.0-33.0) pg MCHC 32.4 (31.0-35.0) g/dl RDW 13.1 (11.0-16.0) % Plt Count 260 (160-400) X10*3/uL MPV 10.0 (9.4-12.3) fL Immature Gran % (Auto) 0.3 (0.0-0.4) % Neut % (Auto) 59.3 (45-73) % Lymph % (Auto) 32.3 (20-40) % [place] % (Auto) 5.4 (2-11) % Eos % (Auto) 1.6 (0-4) % Baso % (Auto) 1.1 (0-2) % Lymph # (Auto) 2.4 (1.2-4.9) X10*3/uL [place] # (Auto) 0.4 (0.1-1.2) X10*3/uL Eos # (Auto) 0.1 (0.0-0.4) X10*3/uL Baso # (Auto) 0.1 (0.0-0.2) X10*3/uL Abs Immat Gran (auto) 0.02 (0.00-0.03) X10*3/uL Absolute Neuts (auto) 4.4 (2.0-8.3) x10*3/uL Absolute Nucleated RBC 0.000 (0.0-0.012) X10*3/uL Nucleated RBC % (auto) 0.0 (0.0-0.2) /100WBC Sodium 140 (135-145) mmol/L Potassium 4.5 (3.3-5.1) mmol/L Chloride 104 (96-108) mmol/L Carbon Dioxide 29 (22-29) mmol/L Anion Gap 12 (12-20) BUN 8 L D (9-16) mg/dL Creatinine 0.78 (0.5-1.4) mg/dL Estim Creat Clear Calc 103.9 Estimated GFR > 60 Random Glucose 110 (60-115) mg/dL Calcium 9.9 (8.4-10.2) mg/dL Urine Color Urine Appearance Urine pH (5.0-8.0) Ur Specific [place] (1.005-1.025) Urine Protein (NEG-TRACE) MG/DL Urine Glucose (UA) (NEG) MG/DL Urine Ketones (NEG) MG/DL Urine Blood (NEG) Urine Nitrite (NEG) Ur Leukocyte Esterase (NEG) Urine RBC (0) /HPF Urine WBC (0-4) /HPF Ur Squamous Epith Cells /LPF Urine Bacteria /LPF Urine Mucus /LPF Urine Opiates Screen (Not Detect) Urine Fentanyl Screen (Not Detect) Ur Barbiturates Screen (Not Detect) Ur Phencyclidine Scrn (Not Detect) Ur Amphetamines Screen (Not Detect) U Benzodiazepines Scrn (Not Detect) Urine Cocaine Screen (Not Detect) U Marijuana (THC) Screen (Not Detect) Ethyl Alcohol < 10 mg/dL COVID-19 (ENDY) (Negative) COVID-19 Clin Com <LASHONDA Jeffries - Last Filed: 09/08/21 01:18> Lab Results 09/07/21 09/07/21 09/07/21 Range/Units 17:25 17:25 17:25 WBC (4.8-10.8) X10*3/uL RBC (4.20-5.50) X10*6/uL Hgb (12.0-16.0) g/dl Hct (37.0-47.0) % MCV (80.0-98.0) fL MCH (27.0-33.0) pg MCHC (31.0-35.0) g/dl RDW (11.0-16.0) % Plt Count (160-400) X10*3/uL MPV (9.4-12.3) fL Immature Gran % (Auto) (0.0-0.4) % Neut % (Auto) (45-73) % Lymph % (Auto) (20-40) % [place] % (Auto) (2-11) % Eos % (Auto) (0-4) % Baso % (Auto) (0-2) % Lymph # (Auto) (1.2-4.9) X10*3/uL [place] # (Auto) (0.1-1.2) X10*3/uL Eos # (Auto) (0.0-0.4) X10*3/uL Baso # (Auto) (0.0-0.2) X10*3/uL Abs Immat Gran (auto) (0.00-0.03) X10*3/uL Absolute Neuts (auto) (2.0-8.3) x10*3/uL Absolute Nucleated RBC (0.0-0.012) X10*3/uL Nucleated RBC % (auto) (0.0-0.2) /100WBC Sodium (135-145) mmol/L Potassium (3.3-5.1) mmol/L Chloride (96-108) mmol/L Carbon Dioxide (22-29) mmol/L Anion Gap (12-20) BUN (9-16) mg/dL Creatinine (0.5-1.4) mg/dL Estim Creat Clear Calc Estimated GFR Random Glucose (60-115) mg/dL Calcium (8.4-10.2) mg/dL Urine Color YELLOW Urine Appearance HAZY Urine pH 7.0 (5.0-8.0) Ur Specific [place] 1.015 (1.005-1.025) Urine Protein TRACE (NEG-TRACE) MG/DL Urine Glucose (UA) NEG (NEG) MG/DL Urine Ketones 5 (NEG) MG/DL Urine Blood NEG (NEG) Urine Nitrite NEG (NEG) Ur Leukocyte Esterase 3+ H (NEG) Urine RBC 1-4 (0) /HPF Urine WBC 10-14 H (0-4) /HPF Ur Squamous Epith Cells 4+ /LPF Urine Bacteria TRACE /LPF Urine Mucus TRACE /LPF Urine Opiates Screen Not Detected (Not Detect) Urine Fentanyl Screen Not Detected (Not Detect) Ur Barbiturates Screen Not Detected (Not Detect) Ur Phencyclidine Scrn Not Detected (Not Detect) Ur Amphetamines Screen Not Detected (Not Detect) U Benzodiazepines Scrn Not Detected (Not Detect) Urine Cocaine Screen POSITIVE H (Not Detect) U Marijuana (THC) Screen Not Detected (Not Detect) Ethyl Alcohol mg/dL COVID-19 (ENDY) Negative (Negative) COVID-19 Clin Com See Note 09/07/21 09/07/21 09/07/21 Range/Units 18:14 18:14 18:14 WBC 7.4 (4.8-10.8) X10*3/uL RBC 4.27 (4.20-5.50) X10*6/uL Hgb 12.9 (12.0-16.0) g/dl Hct 39.8 (37.0-47.0) % MCV 93.2 (80.0-98.0) fL MCH 30.2 (27.0-33.0) pg MCHC 32.4 (31.0-35.0) g/dl RDW 13.1 (11.0-16.0) % Plt Count 260 (160-400) X10*3/uL MPV 10.0 (9.4-12.3) fL Immature Gran % (Auto) 0.3 (0.0-0.4) % Neut % (Auto) 59.3 (45-73) % Lymph % (Auto) 32.3 (20-40) % [place] % (Auto) 5.4 (2-11) % Eos % (Auto) 1.6 (0-4) % Baso % (Auto) 1.1 (0-2) % Lymph # (Auto) 2.4 (1.2-4.9) X10*3/uL [place] # (Auto) 0.4 (0.1-1.2) X10*3/uL Eos # (Auto) 0.1 (0.0-0.4) X10*3/uL Baso # (Auto) 0.1 (0.0-0.2) X10*3/uL Abs Immat Gran (auto) 0.02 (0.00-0.03) X10*3/uL Absolute Neuts (auto) 4.4 (2.0-8.3) x10*3/uL Absolute Nucleated RBC 0.000 (0.0-0.012) X10*3/uL Nucleated RBC % (auto) 0.0 (0.0-0.2) /100WBC Sodium 140 (135-145) mmol/L Potassium 4.5 (3.3-5.1) mmol/L Chloride 104 (96-108) mmol/L Carbon Dioxide 29 (22-29) mmol/L Anion Gap 12 (12-20) BUN 8 L D (9-16) mg/dL Creatinine 0.78 (0.5-1.4) mg/dL Estim Creat Clear Calc 103.9 Estimated GFR > 60 Random Glucose 110 (60-115) mg/dL Calcium 9.9 (8.4-10.2) mg/dL Urine Color Urine Appearance Urine pH (5.0-8.0) Ur Specific [place] (1.005-1.025) Urine Protein (NEG-TRACE) MG/DL Urine Glucose (UA) (NEG) MG/DL Urine Ketones (NEG) MG/DL Urine Blood (NEG) Urine Nitrite (NEG) Ur Leukocyte Esterase (NEG) Urine RBC (0) /HPF Urine WBC (0-4) /HPF Ur Squamous Epith Cells /LPF Urine Bacteria /LPF Urine Mucus /LPF Urine Opiates Screen (Not Detect) Urine Fentanyl Screen (Not Detect) Ur Barbiturates Screen (Not Detect) Ur Phencyclidine Scrn (Not Detect) Ur Amphetamines Screen (Not Detect) U Benzodiazepines Scrn (Not Detect) Urine Cocaine Screen (Not Detect) U Marijuana (THC) Screen (Not Detect) Ethyl Alcohol < 10 mg/dL COVID-19 (ENDY) (Negative) COVID-19 Clin Com <LASHONDA Diamond - Last Filed: 09/08/21 09:24> Discharge Plan Discharge Clinical Impression: Depression <LASHONDA Jeffries - Last Filed: 09/08/21 01:18> Prescriptions: No Action albuterol sulfate 90 mcg/actuation HFA aerosol inhaler 2 puff inhalation QID PRN (Reason: wheezing) RF: 0 valacyclovir 1 gram Tablet 1,000 mg PO BID RF: 0 prazosin 1 mg Capsule 2 mg PO BEDTIME RF: 0 olanzapine 5 mg Tablet 5 mg PO BID RF: 0 lithium carbonate 600 mg Capsule 600 mg PO BID RF: 0 trazodone 150 mg Tablet 150 mg PO BEDTIME RF: 0 omeprazole 20 mg Capsule,Delayed Release(Dr/Ec) 20 mg PO DAILY@0630 RF: 0 sertraline 50 mg Tablet 50 mg PO DAILY RF: 0 cholecalciferol (vitamin D3) 25 mcg (1,000 unit) Tablet 25 mcg PO DAILY RF: 0 ferrous sulfate 324 mg (65 mg iron) Tablet,Delayed Release (Dr/Ec) 324 mg PO DAILY RF: 0 fluticasone propion-salmeterol [AirDuo RespiClick] 232-14 mcg/actuation Aerosol Powdr Breath Activated 1 inh INHALATION BID RF: 0 prednisone 20 mg Tablet PO DAILY RF: 0 <LASHONDA Jeffries - Last Filed: 09/08/21 01:18>
--- NOTE | 2021-09-08 05:29 | PC.NURSE ---
Patient slept through the night, no distress observed/reported, medication compliant, behavior appropriate so far may escalate, [facility] referral completed and confirmed, patient will be seen in the morning, contracted for the safety, will continue to monitor.
[2021-09-08] MEDS: Omeprazole 20 MG CAPSULE.DR PO (06:43)
[2021-09-08] MEDS: Ferrous Sulfate 324 MG TABLET.DR PO (08:06)
[2021-09-08] MEDS: Cholecalciferol (Vitamin D3) 25 MCG TABLET PO (08:06)
[2021-09-08] MEDS: Lithium Carbonate 300 MG CAPSULE 600 MG PO ×2 (08:07→20:29)
[2021-09-08] MEDS: Sertraline HCL 50 MG TABLET PO (08:07)
[2021-09-08] MEDS: OLANZapine 5 MG TABLET PO ×2 (08:07→20:29)
[2021-09-08] MEDS: Fluticasone/Vilanterol 200/25 BLST.W.DEV 1 PUFF INHALE (09:49)
--- NOTE | 2021-09-08 10:50 | PC.NURSE ---
care team with patient
--- NOTE | 2021-09-08 11:41 | PC.NURSE ---
Pt has been calm, sleeping mostly since this RN arrival at 7am. Steady on feet, skin pwd, eating and drinking well. Awaiting update on plan of care.
[2021-09-08 16:17] VITALS: BP 99/72; PULSE 86; RESP 16; TEMP 37.2; O2SAT 93
[2021-09-08] MEDS: Acetaminophen 325 MG TABLET 650 MG PO (18:13)
[2021-09-08 20:29] VITALS: BP 113/59; PULSE 76
[2021-09-08] MEDS: Prazosin HCL 1 MG CAPSULE 2 MG PO (20:29)
--- NOTE | 2021-09-08 22:30 | PC.ADMIT ---
Pt is a 51 year old female who came into [facility] with increased depression and SI with a plan to jump off a bridge. Tox screen positive for cocaine. Reports that she has been using crack cocaine. Med compliant and has been showing up for her outpatient appointments per patient. Pt is known to [facility] and has an extensive history of IPLOC. Hx of trauma. Placed on 15 minute checks. CV signed. Medication ordered and obtained by scrap preparation supervisor .
[2021-09-08] MEDS: traZODone HCL 50 MG TABLET 150 MG PO (22:36)
[2021-09-08 23:02] VITALS: BP 108/66; PULSE 88; RESP 17; TEMP 36.4; O2SAT 95
[2021-09-09 06:00] VITALS: BP 108/75; PULSE 68; RESP 16; TEMP 36.1; O2SAT 94
[2021-09-09] MEDS: Acetaminophen 325 MG TABLET 650 MG PO (08:08)
[2021-09-09] MEDS: Omeprazole 20 MG CAPSULE.DR PO (08:08)
[2021-09-09] MEDS: Sertraline HCL 50 MG TABLET PO (08:08)
[2021-09-09] MEDS: Ferrous Sulfate 324 MG TABLET.DR PO (08:08)
[2021-09-09] MEDS: Lithium Carbonate 300 MG CAPSULE 600 MG PO ×2 (08:08→19:29)
[2021-09-09] MEDS: OLANZapine 5 MG TABLET PO (08:09)
[2021-09-09] MEDS: Cholecalciferol (Vitamin D3) 25 MCG TABLET PO (08:09)
[2021-09-09 08:48] LABS: MANUAL DIFF FLAG NO
[2021-09-09 08:51] LABS: Basophils Absolute Auto 0.1 X10*3/uL (0.0-0.2); Basophils Percent Auto 1.1 % (0-2); Eosinophils Absolute Auto 0.2 X10*3/uL (0.0-0.4); Eosinophils Percent Auto 3.6 % (0-4); Hematocrit 41.7 % (37.0-47.0); Hemoglobin 13.2 g/dl (12.0-16.0); Imm Gran Abs Auto 0.02 X10*3/uL (0.00-0.03); Imm Gran Pct Auto 0.3 % (0.0-0.4); Lymphocytes Absolute Auto 2.6 X10*3/uL (1.2-4.9); Lymphocytes Percent Auto 42.4 % (20-40); Mean Corpuscular HGB Conc 31.7 g/dl (31.0-35.0); Mean Corpuscular Hemoglobin 29.9 pg (27.0-33.0); Mean Corpuscular Volume 94.6 fL (80.0-98.0); Mean Platelet Volume 11.8 fL (9.4-12.3); Monocytes Absolute Auto 0.4 X10*3/uL (0.1-1.2); Monocytes Percent Auto 6.7 % (2-11); Neutrophils Absolute Auto 2.8 x10*3/uL (2.0-8.3); Neutrophils Percent Auto 45.9 % (45-73); Platelet Count 185 X10*3/uL (160-400); Red Blood Count 4.41 X10*6/uL (4.20-5.50); Red Cell Distribution Width 12.9 % (11.0-16.0); White Blood Count 6.2 X10*3/uL (4.8-10.8)
[2021-09-09 09:14] LABS: Alanine Aminotransferase 33 U/L (0-31); Albumin Level 3.9 g/dL (3.5-5.0); Alkaline Phosphatase 87 U/L (39-117); Anion Gap 13 (12-20); Aspartate Amino Transferase 15 U/L (5-31); Bilirubin Direct < 0.2 mg/dL (0.0-0.5); Bilirubin Total 0.2 mg/dL (0.0-1.0); Blood Urea Nitrogen 10 mg/dL (9-16); Calcium 9.5 mg/dL (8.4-10.2); Carbon Dioxide 28 mmol/L (22-29); Chloride 104 mmol/L (96-108); Creatinine Clr Calc Pharmacy 115.8; Estimated Glomerular Filt Rate > 60; Glucose Fasting 116 mg/dL (60-99); Potassium 4.7 mmol/L (3.3-5.1); Sodium 140 mmol/L (135-145); Total Protein 6.2 g/dL (6.5-8.0)
[2021-09-09] MEDS: Nicotine 21 MG PATCH.TD24 TRANSDERMA (10:13)
[2021-09-09 18:00] VITALS: BP 113/58; PULSE 77; RESP 16; TEMP 36.3; O2SAT 95
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
[2021-09-09 19:27] VITALS: BP 113/58; PULSE 77
[2021-09-09] MEDS: Prazosin HCL 1 MG CAPSULE 2 MG PO (19:27)
[2021-09-09] MEDS: traZODone HCL 50 MG TABLET 150 MG PO (19:30)
[2021-09-09] MEDS: OLANZapine 10 MG TABLET PO (19:30)
[2021-09-09 19:50] LABS: D Dimer 233 NG/ML
[2021-09-09] MEDS: Mineral Oil/Petrolatum,White 106 GM Tube 1 APPL TOPICAL (20:57)
[2021-09-10 06:00] VITALS: BP 116/84; PULSE 62; RESP 18; TEMP 36.6; O2SAT 95
[2021-09-10 08:34] LABS: Cholesterol 177 mg/dL; HDL Cholesterol 50 mg/dL; LDL Cholesterol Calculated 106 mg/dl; Triglycerides 106 mg/dL
[2021-09-10] MEDS: OLANZapine 10 MG TABLET PO ×2 (08:40→20:26)
[2021-09-10] MEDS: Cholecalciferol (Vitamin D3) 25 MCG TABLET PO (08:40)
[2021-09-10] MEDS: Sertraline HCL 50 MG TABLET PO (08:40)
[2021-09-10] MEDS: Ferrous Sulfate 324 MG TABLET.DR PO (08:41)
[2021-09-10] MEDS: Lithium Carbonate 300 MG CAPSULE 600 MG PO ×2 (08:41→20:25)
[2021-09-10] MEDS: Omeprazole 20 MG CAPSULE.DR PO (08:41)
[2021-09-10] MEDS: Nicotine 21 MG PATCH.TD24 TRANSDERMA (08:43)
[2021-09-10 08:50] LABS: Estimated Average Glucose 108 mg/dL; Hemoglobin A1c % 5.4 %
[2021-09-10 08:54] LABS: Thyroid Stimulating Hormone 4.49 uIU/mL (0.32-4.0)
[2021-09-10 09:17] LABS: Folate 7.4 ng/mL (> or = 4.0); Vitamin B12 370 pg/mL (200-900)
[2021-09-10] MEDS: Acetaminophen 325 MG TABLET 650 MG PO (11:38)
[2021-09-10] MEDS: Mineral Oil/Petrolatum,White 106 GM Tube 1 APPL TOPICAL ×2 (14:30→21:35)
--- NOTE | 2021-09-10 14:33 | HO.PM.IMCN ---
History of Present Illness Data of Consult Service Date: 09/10/21 Requesting physician: Reina Lyle Primary Care Provider: [facility] Reason for consult: Medical history and physical 51-year-old female patient admitted to [facility], due to aggressive behavior, patient past medical history is significant for COPD, depression, bipolar disorder, FABIOLA, and PTSD, patient complaining of bilateral leg pain today has been taking Tylenol with no significant relief she denies any prolonged immobilization feels legs are puffy but are not swollen, denies any leg trauma or injury denies any fall, denies associated fever or chills. She denies any symptoms of shortness of breath, cough, denies headache, no dizziness. Review of Systems Review of Systems: General no headache, no dizziness, no fever chills. CVS no chest pain, no palpitation. Respiratory no cough, no sob. Gastrointestinal no nausea, no vomiting, no abdominal pain Skin bruise left leg Musculoskeletal bilateral leg pain, right knee pain no urinary symptoms of urgency frequency Yes all other systems are reviewed and are negative [facility] Medical History Asthma exacerbation in COPD Bipolar disorder Bipolar I disorder Borderline personality disorder Borderline personality disorder COPD (chronic obstructive pulmonary disease) Depression Drug abuse Herpes Intermittent explosive disorder FABIOLA (obstructive sleep apnea) Post traumatic stress disorder (PTSD) PTSD (post-traumatic stress disorder) PTSD (post-traumatic stress disorder) Tobacco use Family History Mother COPD (chronic obstructive pulmonary disease) Pertinent family history: No family history of premature coronary artery disease Surgical History History of ankle surgery History of appendectomy History of back surgery Hx of cholecystectomy Social History Household Members: None Household Members Other:: Pt states she hangs out with a male friend and a female friend Housing: Apartment Housing Other:: will be getting apartment 07/01 Do you presently have visiting nurse or other home services: No Unable to assess alcohol history related to: Unknown Alcohol intake: never Patient Tobacco Use Status: Current everyday Tobacco user Tobacco use type: Cigarette Cigarette Packs Per Day: 0.5 Cigarettes Per Day: 10.0 Years Smoked: 17 Smoked in Last 30 Days: Yes e-Cigarette/Vaping Use: Never Used Patient Interested in Nicotine Replacement: Yes (patch only) Patient Given Instructions on How to Stop Smoking: Yes Date Education Initiated: 09/08/21 Second Hand Smoke Exposure: Yes Use of substances other than those prescribed or required for medical reasons: Yes Substance Use Type: Crack/Cocaine Substance Use Frequency: Recent Binge Last Used Substance: Days (ago) Currently Displaying Signs/Symptoms of Drug Intoxication Withdrawal: No Any prior treatment program specific to substance use: No Advance Directives: Yes Advance Directives on File: Yes Advance Directives Date on File: 12/24/20 Healthcare Proxy: No Guardian: No Do you have thoughts of harming others: None Do you have a plan to hurt others: No Plan Recently lost weight without trying: No How much weight loss: Not applicable Eating poorly because of decreased appetite: No Nutrition screen score: 0 Nutrition Risks: No Nutritional Risk Patient : No : No Poor oral hygiene: No service: No Current occupational status: unemployed and disabled Sexual orientation: Did not discuss Meds Allergies Allergy/AdvReac Type Severity Reaction Status Date / Time aspirin [Aspirin] Allergy Severe HIVES,THROAT Verified 06/05/21 21:34 SWELLS bee pollen [BEE STINGS] Allergy Severe ANAPHYLAXIS Verified 06/05/21 21:34 diphenhydramine Allergy Severe hives, Verified 06/05/21 21:34 [From BENADRYL ALLERGY] throat swells Penicillins [PCN] Allergy Severe HIVES Verified 06/05/21 21:34 THROAT SWELLS Sulfa (Sulfonamide Allergy Intermediate HIVES Verified 06/05/21 21:34 Antibiotics) [SULFA (SULFONAMIDE ANTIBIOTICS)] tramadol [TRAMADOL] Allergy Intermediate ITCHING Verified 06/05/21 21:34 latex [LATEX] Allergy Unknown UNKNOWN Verified 06/05/21 21:34 penicillin G Allergy Unknown Unknown Verified 06/05/21 21:34 levofloxacin [From Levaquin] Allergy Hives Verified 06/05/21 21:34 bee stings Allergy Unknown Unknown Uncoded 06/05/21 21:34 DairyCare Allergy Unknown Unknown Uncoded 06/05/21 21:34 sulfa drugs Allergy Unknown Unknown Uncoded 06/05/21 21:34 Active Medications: Current Medications Acetaminophen (Acetaminophen 325 Mg Tablet) 650 mg PO Q6H PRN PRN Reason: Headache/Pain Mild Scale (1-3) Last Admin: 09/10/21 11:38 Dose: 650 mg Documented by: Al Hydroxide/Mg Hydroxide (Magnesium Hydrox/Alum Hydrox 30 Ml Oral.Susp) 30 ml PO Q6H PRN PRN Reason: Heartburn/Nausea Albuterol Sulfate (Albuterol Sulfate 90 Mcg 8 Gm Inhaler) 2 puff INHALE QID PRN PRN Reason: wheezing Ferrous Sulfate (Ferrous Sulfate 324 Mg Tablet.) 324 mg PO DAILY [facility] Last Admin: 09/10/21 08:41 Dose: 324 mg Documented by: Fluticasone/Vilanterol (Fluticasone/Vilanterol 200/25 Blst.W.Dev) 1 puff INHALE DAILY [facility] Last Admin: 09/10/21 08:56 Dose: Not Given Documented by: Riva Carbonate (Riva Carbonate 300 Mg Capsule) 600 mg PO BID [facility] Last Admin: 09/10/21 08:41 Dose: 600 mg Documented by: Magnesium Hydroxide (Milk Of Magnesia 30 Ml Oral.Susp) 30 ml PO DAILY PRN PRN Reason: Constipation Multi-Ingred Cream/Lotion/Oil/Oint (Mineral Oil/Petrolatum,White 106 Gm Tube) 1 appl TOPICAL TID [facility]; Protocol Last Admin: 09/10/21 14:30 Dose: 1 appl Documented by: Nicotine (Nicotine 21 Mg Patch.Td24) 21 mg TRANSDERMA DAILY [facility] Last Admin: 09/10/21 08:43 Dose: 21 mg Documented by: Olanzapine (Olanzapine 10 Mg Tablet) 10 mg PO BID [facility] Last Admin: 09/10/21 08:40 Dose: 10 mg Documented by: Omeprazole (Omeprazole 20 Mg Capsule.) 20 mg PO DAILY@0630 [facility] Last Admin: 09/10/21 08:41 Dose: 20 mg Documented by: Pharmacy Consult (Consult Rx Perform Med Rec) 1 each MISCELLANE ONCE PRN PRN Reason: Consult order Prazosin HCl (Prazosin Hcl 1 Mg Capsule) 2 mg PO BEDTIME [facility]; Protocol Last Admin: 09/09/21 19:27 Dose: 2 mg Documented by: Sertraline HCl (Sertraline Hcl 50 Mg Tablet) 50 mg PO DAILY [facility] Last Admin: 09/10/21 08:40 Dose: 50 mg Documented by: Trazodone HCl (Trazodone Hcl 50 Mg Tablet) 150 mg PO BEDTIME [facility] Last Admin: 09/09/21 19:30 Dose: 150 mg Documented by: Trazodone HCl (Trazodone Hcl 50 Mg Tablet) 50 mg PO BEDTIME PRN PRN Reason: Insomnia Valacyclovir HCl (Valacycyclovir Hcl 1,000 Mg Tablet) 1,000 mg PO BID [facility] Last Admin: 09/10/21 08:57 Dose: 1,000 mg Documented by: Vitamin D (Cholecalciferol (Vitamin D3) 25 Mcg Tablet) 25 mcg PO DAILY [facility] Last Admin: 09/10/21 08:40 Dose: 25 mcg Documented by: Home Medications Medication Instructions Recorded Confirmed Last Taken Type albuterol sulfate 90 mcg/actuation 2 puff INHALATION QID PRN 07/22/21 09/07/21 07/21/21 History aerosol inhaler cholecalciferol (vitamin D3) 25 25 mcg PO DAILY 07/22/21 09/07/21 09/07/21 History mcg (1,000 unit) tablet ferrous sulfate 324 mg (65 mg 324 mg PO DAILY 07/22/21 09/07/21 09/07/21 History iron) tablet,delayed release fluticasone 232 mcg-salmeterol 14 1 inh INHALATION BID 07/22/21 09/07/21 09/07/21 History mcg/actuation breath activated powdr (AirDuo RespiClick) lithium carbonate 600 mg capsule 600 mg PO BID 07/22/21 09/07/21 09/07/21 History olanzapine 5 mg tablet 5 mg PO BID 07/22/21 09/07/21 09/07/21 History omeprazole 20 mg capsule,delayed 20 mg PO DAILY@0630 07/22/21 09/07/21 09/07/21 History release prazosin 1 mg capsule 2 mg PO BEDTIME 07/22/21 09/07/21 09/06/21 History prednisone 20 mg tablet mg PO DAILY 07/22/21 07/22/21 07/21/21 History sertraline 50 mg tablet 50 mg PO DAILY 07/22/21 09/07/21 09/07/21 History trazodone 150 mg tablet 150 mg PO BEDTIME 07/22/21 09/07/21 09/06/21 History valacyclovir 1 gram tablet 1,000 mg PO BID 07/22/21 09/07/21 09/06/21 History Physical Exam Vital Signs and Narrative: Vital Signs: Last Vital Signs Temp 97.8 F 09/10/21 06:00 Pulse 62 09/10/21 06:00 Resp 18 09/10/21 06:00 BP 116/84 09/10/21 06:00 Pulse Ox 95 09/10/21 06:00 Body Mass Index 38.6 General awake alert x3, no acute distress.? Neck? supple, no JVD. CVS? regular rate rhythm, Respiratory lungs clear to auscultation, no respiratory distress, no wheeze, no rhonchi. Gastrointestinal abdomen soft, nontender, bowel sounds audible, Lower Extremities no pitting edema, no redness, a small bruise left leg, good range of motion both knees, right knee mild swelling, no redness, normal flexion and extension Neuro nonfocal , speech clear. Psych appropriate affect Results Labs CBC and Chem 7: 09/09/21 08:06 09/09/21 08:06 Labs: Laboratory Results - last 24 hr 09/09/21 09/10/21 09/10/21 19:31 07:59 07:59 D-Dimer 233 Estimat Average Glucose 108 Hemoglobin A1c % 5.4 Triglycerides 106 Cholesterol 177 LDL Cholesterol, Calc 106 HDL Cholesterol 50 Vitamin B12 Folate TSH 4.49 H 09/10/21 07:59 D-Dimer Estimat Average Glucose Hemoglobin A1c % Triglycerides Cholesterol LDL Cholesterol, Calc HDL Cholesterol Vitamin B12 370 Folate 7.4 TSH Assessment and Plan (1) Bilateral leg pain: Status: Acute (2) Tobacco use disorder: Status: Acute 51-year-old female patient with past medical history significant for COPD,FABIOLA , PTSD admitted to psych at present complaining of bilateral leg pain offers no complaints of shortness of breath cough or chest pain . # COPD No acute exacerbation, continue home inhalers #Bilateral leg pain Seems musculoskeletal, no evidence of cellulitis, D-dimer 233, less likely to have DVT Normal examination and labs recommend to take as needed motrin. Will follow clinical course if noted to have persistent symptoms will do re-evaluation and further testing. # tobacco use disorder ? Counseling done , continue nicotine patch Thank you for allowing us to participate in the care of this patient.
--- NOTE | 2021-09-10 17:27 | HO.PSYCHPN ---
Subjective Subjective Date of Service: 09/10/21 Reason For Visit: PTSD; Bipolar Disorder; Stimulant Use Disorder-Krista Subjective Notes: Conditional Voluntary Healthcare Proxy: No Guardianship: No Medical Problems Affecting Mental Status: No Interim History: Pt reports some relief from BLE pain. Discussed possibility of EPS sx-will trial Benztropine this evening to assess if sx are relieved in any way. Pt reports family hx CFS and vascular issues-review of cocaine induced peripheral vascular symptoms-pt states this could be a possiblity. Reports regime to be tolerated and beginning to take effect. Pt thinking about discharge planning-plans to attend [facility]. States she will need to be there by 4pm however in the past this program has been helpful for her. Medication Compliance: Yes Side effects from medications: No Attending Groups: Intermittent Review of Systems Acute medical concerns: No BLE pain-difficulty in ambulation. Medical Review of Systems: unchanged Review of Systems Psychiatric: Reports abnormal sleep pattern, Reports anxiety, Reports change in appetite, Reports depression, Reports difficulty concentrating, Reports hopelessness, Reports irritability, Reports anhedonia, Reports mood swings, Reports paranoia and Reports suicidal ideation Mental Status Exam Mental Status Exam Patient Appearance: Appropriate Patient Orientation: Person, Place, Time and Situation Level of Consciousness: Alert Patient Behavior: Talkative, Good Eye Contact and Crying Mood Description: Depressed, Anxious, Sad, Nervous and Apprehensive Affect Description: Anxious and Flat Patient Cognition Impaired: No Ability to Follow Directions: Good Speech Pattern: Spontaneous Speech Memory Description: Episodic Impaired Hallucinations: Auditory Delusions: Paranoid Ideation Perceptual Disturbances: Depersonalization and Derealization Thought Process: Distracted and Rumination Thought Content: positive for Circumstantial, positive for Perseveration and positive for Suicidal Ideation Depressive Symptoms: Increased Anxiety, Insomnia, Diff. Making Decisions, Increased Irritability, Difficulty Sleeping, Changes in Appetite, Loss of Int. in Activity, Feelings of Worthlessness, Hopelessness, Isolating-Friends/Family, Feelings of Guilt, Unhappiness, Increased Fatigue, Thoughts of /Suicide, Low Self Esteem, Loss of Energy and Difficulty Concentrating Judgement: Fair Diagnostics Vital Signs (24Hr): Vital Signs - 24 hr 09/09/21 18:00 09/09/21 19:27 09/10/21 06:00 Temperature 97.4 F 97.8 F Pulse Rate 77 77 62 Respiratory Rate 16 18 Blood Pressure 113/58 L 113/58 L 116/84 Pulse Oximetry 95 95 Body Mass Index 38.6 Labs Results: 09/09/21 08:06 09/09/21 08:06 Labs: Laboratory Results - last 48 hr 09/09/21 09/09/21 09/09/21 08:06 08:06 19:31 WBC 6.2 RBC 4.41 Hgb 13.2 Hct 41.7 MCV 94.6 MCH 29.9 MCHC 31.7 RDW 12.9 Plt Count 185 D MPV 11.8 Immature Gran % (Auto) 0.3 Neut % (Auto) 45.9 Lymph % (Auto) 42.4 H Ponce % (Auto) 6.7 Eos % (Auto) 3.6 Baso % (Auto) 1.1 Lymph # (Auto) 2.6 [place] # (Auto) 0.4 Eos # (Auto) 0.2 Baso # (Auto) 0.1 Abs Immat Gran (auto) 0.02 Absolute Neuts (auto) 2.8 Absolute Nucleated RBC 0.000 Nucleated RBC % (auto) 0.0 D-Dimer 233 Sodium 140 Potassium 4.7 Chloride 104 Carbon Dioxide 28 Anion Gap 13 BUN 10 Creatinine 0.70 Estim Creat Clear Calc 115.8 Estimated GFR > 60 Fasting Glucose 116 H Estimat Average Glucose Hemoglobin A1c % Calcium 9.5 Total Bilirubin 0.2 Direct Bilirubin < 0.2 AST 15 ALT 33 H Alkaline Phosphatase 87 D Total Protein 6.2 L Albumin 3.9 Triglycerides Cholesterol LDL Cholesterol, Calc HDL Cholesterol Vitamin B12 Folate TSH 09/10/21 09/10/21 09/10/21 07:59 07:59 07:59 WBC RBC Hgb Hct MCV MCH MCHC RDW Plt Count MPV Immature Gran % (Auto) Neut % (Auto) Lymph % (Auto) Ponce % (Auto) Eos % (Auto) Baso % (Auto) Lymph # (Auto) Ponce # (Auto) Eos # (Auto) Baso # (Auto) Abs Immat Gran (auto) Absolute Neuts (auto) Absolute Nucleated RBC Nucleated RBC % (auto) D-Dimer Sodium Potassium Chloride Carbon Dioxide Anion Gap BUN Creatinine Estim Creat Clear Calc Estimated GFR Fasting Glucose Estimat Average Glucose 108 Hemoglobin A1c % 5.4 Calcium Total Bilirubin Direct Bilirubin AST ALT Alkaline Phosphatase Total Protein Albumin Triglycerides 106 Cholesterol 177 LDL Cholesterol, Calc 106 HDL Cholesterol 50 Vitamin B12 370 Folate 7.4 TSH 4.49 H Medications Medications Current Medications Acetaminophen (Acetaminophen 325 Mg Tablet) 650 mg PO Q6H PRN PRN Reason: Headache/Pain Mild Scale (1-3) Last Admin: 09/10/21 11:38 Dose: 650 mg Documented by: Al Hydroxide/Mg Hydroxide (Magnesium Hydrox/Alum Hydrox 30 Ml Oral.Susp) 30 ml PO Q6H PRN PRN Reason: Heartburn/Nausea Albuterol Sulfate (Albuterol Sulfate 90 Mcg 8 Gm Inhaler) 2 puff INHALE QID PRN PRN Reason: wheezing Ferrous Sulfate (Ferrous Sulfate 324 Mg Tablet.) 324 mg PO DAILY [facility] Last Admin: 09/10/21 08:41 Dose: 324 mg Documented by: Fluticasone/Vilanterol (Fluticasone/Vilanterol 200/25 Blst.W.Dev) 1 puff INHALE DAILY [facility] Last Admin: 09/10/21 08:56 Dose: Not Given Documented by: [place] Carbonate ([place] Carbonate 300 Mg Capsule) 600 mg PO BID [facility] Last Admin: 09/10/21 08:41 Dose: 600 mg Documented by: Magnesium Hydroxide (Milk Of Magnesia 30 Ml Oral.Susp) 30 ml PO DAILY PRN PRN Reason: Constipation Multi-Ingred Cream/Lotion/Oil/Oint (Mineral Oil/Petrolatum,White 106 Gm Tube) 1 appl TOPICAL TID [facility]; Protocol Last Admin: 09/10/21 14:30 Dose: 1 appl Documented by: Nicotine (Nicotine 21 Mg Patch.Td24) 21 mg TRANSDERMA DAILY [facility] Last Admin: 09/10/21 08:43 Dose: 21 mg Documented by: Olanzapine (Olanzapine 10 Mg Tablet) 10 mg PO BID [facility] Last Admin: 09/10/21 08:40 Dose: 10 mg Documented by: Omeprazole (Omeprazole 20 Mg Capsule.) 20 mg PO DAILY@0630 [facility] Last Admin: 09/10/21 08:41 Dose: 20 mg Documented by: Pharmacy Consult (Consult Rx Perform Med Rec) 1 each MISCELLANE ONCE PRN PRN Reason: Consult order Prazosin HCl (Prazosin Hcl 1 Mg Capsule) 2 mg PO BEDTIME [facility]; Protocol Last Admin: 09/09/21 19:27 Dose: 2 mg Documented by: Sertraline HCl (Sertraline Hcl 50 Mg Tablet) 50 mg PO DAILY [facility] Last Admin: 09/10/21 08:40 Dose: 50 mg Documented by: Trazodone HCl (Trazodone Hcl 50 Mg Tablet) 150 mg PO BEDTIME [facility] Last Admin: 09/09/21 19:30 Dose: 150 mg Documented by: Trazodone HCl (Trazodone Hcl 50 Mg Tablet) 50 mg PO BEDTIME PRN PRN Reason: Insomnia Valacyclovir HCl (Valacycyclovir Hcl 1,000 Mg Tablet) 1,000 mg PO BID [facility] Last Admin: 09/10/21 08:57 Dose: 1,000 mg Documented by: Vitamin D (Cholecalciferol (Vitamin D3) 25 Mcg Tablet) 25 mcg PO DAILY [facility] Last Admin: 09/10/21 08:40 Dose: 25 mcg Documented by: Allergies Allergies Allergy/AdvReac Type Severity Reaction Status Date / Time aspirin [Aspirin] Allergy Severe HIVES,THROAT Verified 06/05/21 21:34 SWELLS bee pollen [BEE STINGS] Allergy Severe ANAPHYLAXIS Verified 06/05/21 21:34 diphenhydramine Allergy Severe hives, Verified 06/05/21 21:34 [From BENADRYL ALLERGY] throat swells Penicillins [PCN] Allergy Severe HIVES Verified 06/05/21 21:34 THROAT SWELLS Sulfa (Sulfonamide Allergy Intermediate HIVES Verified 06/05/21 21:34 Antibiotics) [SULFA (SULFONAMIDE ANTIBIOTICS)] tramadol [TRAMADOL] Allergy Intermediate ITCHING Verified 06/05/21 21:34 latex [LATEX] Allergy Unknown UNKNOWN Verified 06/05/21 21:34 penicillin G Allergy Unknown Unknown Verified 06/05/21 21:34 levofloxacin [From Levaquin] Allergy Hives Verified 06/05/21 21:34 bee stings Allergy Unknown Unknown Uncoded 06/05/21 21:34 [employer] Allergy Unknown Unknown Uncoded 06/05/21 21:34 sulfa drugs Allergy Unknown Unknown Uncoded 06/05/21 21:34 Assessment & Plan Assessment & Plan (1) Bipolar disorder: Qualifiers: Active/Remission status: currently active Current bipolar episode type: depressed Current episode severity: unspecified Qualified Code(s): F31.30 - Bipolar disorder, current episode depressed, mild or moderate severity, unspecified Status: Acute Code(s): F31.9 - Bipolar disorder, unspecified (2) PTSD (post-traumatic stress disorder): Status: Acute Code(s): F43.10 - Post-traumatic stress disorder, unspecified (3) Cocaine use disorder: Status: Acute Code(s): F14.10 - Cocaine abuse, uncomplicated Assessment and Plan: 51 yo female, hx of PTSD, Bipolar Disorder, Stimulant Use Disorder-Cocaine,Crack presents with active SI with a plan to jump from a local building and several medical symptoms-mainly effecting pt's ability to ambulate. Pt reports medicine compliance and reports poor sleep, appetite, anergy, pain, with a increase in depressive sx and active SI with plan and intent. Plan: Increase Olanzapine to 10 mg bid Hospitalist consult-BLE pain-inability to ambulate-? cocaine induced peripheral vascular sx Collateral contacts. 09/10/21: Hospitalist consult appreciated Benztropine 1 mg HS trial Ibuprofen prn trial for pain Pt re-establishing med regime without adverse effects. I spent 30 minutes with the patient and/or on the patient floor today, greater than?50% of which was spent counseling/coordinating care. Patient educated on: medication risk/benefits, therapeutic strategies and medical condition Informed Consent: understands and further education needed Reason for contiued inpatient stay Substantial Risk for: harm to self, inability to function, rapid decompensation and med/psych decompensation
[2021-09-10 18:00] VITALS: BP 128/83; PULSE 68; RESP 16; TEMP 36.4; O2SAT 94
[2021-09-10] MEDS: Benztropine Mesylate 1 MG TABLET PO (20:24)
[2021-09-10] MEDS: traZODone HCL 50 MG TABLET 150 MG PO (20:26)
[2021-09-10 20:48] VITALS: BP 110/63; PULSE 76
[2021-09-10] MEDS: Prazosin HCL 1 MG CAPSULE 2 MG PO (20:48)
[2021-09-11 06:00] VITALS: BP 115/64; PULSE 82; RESP 16; TEMP 36.5; O2SAT 93
[2021-09-11] MEDS: Cholecalciferol (Vitamin D3) 25 MCG TABLET PO (09:25)
[2021-09-11] MEDS: Omeprazole 20 MG CAPSULE.DR PO (09:25)
[2021-09-11] MEDS: Ferrous Sulfate 324 MG TABLET.DR PO (09:25)
[2021-09-11] MEDS: OLANZapine 10 MG TABLET PO ×2 (09:25→21:20)
[2021-09-11] MEDS: Lithium Carbonate 300 MG CAPSULE 600 MG PO ×2 (09:25→21:21)
[2021-09-11] MEDS: Nicotine 21 MG PATCH.TD24 TRANSDERMA (09:26)
[2021-09-11] MEDS: Acetaminophen 325 MG TABLET 650 MG PO (09:26)
[2021-09-11] MEDS: Sertraline HCL 50 MG TABLET PO (09:26)
[2021-09-11] MEDS: Fluticasone/Vilanterol 200/25 BLST.W.DEV 1 PUFF INHALE (09:29)
--- NOTE | 2021-09-11 10:46 | P.PNPSI_ITS ---
Subjective Subjective Date of Service: 09/11/21 Reason For Visit: PTSD; Bipolar Disorder; Stimulant Use Disorder-Krista Subjective Notes: Conditional Voluntary Healthcare Proxy: No Guardianship: No Medical Problems Affecting Mental Status: No Interim History: In the morning I see a green troll on the wall and someone trying to come through the window. Reports no adverse effects from regime being re-titrated. Continues with BLE pain and difficulty in ambulation. Medication Compliance: Yes Side effects from medications: No Attending Groups: Yes Review of Systems Acute medical concerns: No Medical Review of Systems: unchanged Review of Systems Psychiatric: Reports abnormal sleep pattern, Reports anxiety, Reports change in appetite, Reports depression, Reports difficulty concentrating, Reports hopelessness, Reports irritability, Reports anhedonia, Reports mood swings, Reports paranoia and Reports suicidal ideation Mental Status Exam Mental Status Exam Patient Appearance: Appropriate Patient Orientation: Person, Place, Time and Situation Level of Consciousness: Alert Patient Behavior: Talkative, Good Eye Contact and Crying Mood Description: Depressed, Anxious, Sad, Nervous and Apprehensive Affect Description: Anxious and Flat Patient Cognition Impaired: No Ability to Follow Directions: Good Speech Pattern: Spontaneous Speech Memory Description: Episodic Impaired Hallucinations: Auditory Delusions: Paranoid Ideation Perceptual Disturbances: Depersonalization and Derealization Thought Process: Distracted and Rumination Thought Content: positive for Circumstantial, positive for Perseveration and positive for Suicidal Ideation Depressive Symptoms: Increased Anxiety, Insomnia, Diff. Making Decisions, Increased Irritability, Difficulty Sleeping, Changes in Appetite, Loss of Int. in Activity, Feelings of Worthlessness, Hopelessness, Isolating-Friends/Family, Feelings of Guilt, Unhappiness, Increased Fatigue, Thoughts of /Suicide, Low Self Esteem, Loss of Energy and Difficulty Concentrating Judgement: Fair Diagnostics Vital Signs (24Hr): Vital Signs - 24 hr 09/10/21 18:00 09/10/21 20:48 09/11/21 06:00 Temperature 97.6 F 97.7 F Pulse Rate 68 76 82 Respiratory Rate 16 16 Blood Pressure 128/83 110/63 115/64 Pulse Oximetry 94 93 Body Mass Index 38.6 Labs Results: 09/09/21 08:06 09/09/21 08:06 Labs: Laboratory Results - last 48 hr 09/09/21 09/10/21 09/10/21 19:31 07:59 07:59 D-Dimer 233 Estimat Average Glucose 108 Hemoglobin A1c % 5.4 Triglycerides 106 Cholesterol 177 LDL Cholesterol, Calc 106 HDL Cholesterol 50 Vitamin B12 Folate TSH 4.49 H 09/10/21 07:59 D-Dimer Estimat Average Glucose Hemoglobin A1c % Triglycerides Cholesterol LDL Cholesterol, Calc HDL Cholesterol Vitamin B12 370 Folate 7.4 TSH Medications Medications Current Medications Acetaminophen (Acetaminophen 325 Mg Tablet) 650 mg PO Q6H PRN PRN Reason: Headache/Pain Mild Scale (1-3) Last Admin: 09/11/21 09:26 Dose: 650 mg Documented by: Al Hydroxide/Mg Hydroxide (Magnesium Hydrox/Alum Hydrox 30 Ml Oral.Susp) 30 ml PO Q6H PRN PRN Reason: Heartburn/Nausea Albuterol Sulfate (Albuterol Sulfate 90 Mcg 8 Gm Inhaler) 2 puff INHALE QID PRN PRN Reason: wheezing Benztropine Mesylate (Benztropine Mesylate 1 Mg Tablet) 1 mg PO BEDTIME [facility] Last Admin: 09/10/21 20:24 Dose: 1 mg Documented by: Ferrous Sulfate (Ferrous Sulfate 324 Mg Tablet.) 324 mg PO DAILY [facility] Last Admin: 09/11/21 09:25 Dose: 324 mg Documented by: Fluticasone/Vilanterol (Fluticasone/Vilanterol 200/25 Blst.W.Dev) 1 puff INHALE DAILY [facility] Last Admin: 09/11/21 09:29 Dose: 1 puff Documented by: [place] Carbonate ([place] Carbonate 300 Mg Capsule) 600 mg PO BID [facility] Last Admin: 09/11/21 09:25 Dose: 600 mg Documented by: Magnesium Hydroxide (Milk Of Magnesia 30 Ml Oral.Susp) 30 ml PO DAILY PRN PRN Reason: Constipation Multi-Ingred Cream/Lotion/Oil/Oint (Mineral Oil/Petrolatum,White 106 Gm Tube) 1 appl TOPICAL TID [facility]; Protocol Last Admin: 09/11/21 09:33 Dose: Not Given Documented by: Nicotine (Nicotine 21 Mg Patch.Td24) 21 mg TRANSDERMA DAILY [facility] Last Admin: 09/11/21 09:26 Dose: 21 mg Documented by: Olanzapine (Olanzapine 10 Mg Tablet) 10 mg PO BID [facility] Last Admin: 09/11/21 09:25 Dose: 10 mg Documented by: Omeprazole (Omeprazole 20 Mg Capsule.) 20 mg PO DAILY@0630 [facility] Last Admin: 09/11/21 09:25 Dose: 20 mg Documented by: Pharmacy Consult (Consult Rx Perform Med Rec) 1 each MISCELLANE ONCE PRN PRN Reason: Consult order Prazosin HCl (Prazosin Hcl 1 Mg Capsule) 2 mg PO BEDTIME [facility]; Protocol Last Admin: 09/10/21 20:48 Dose: 2 mg Documented by: Sertraline HCl (Sertraline Hcl 50 Mg Tablet) 50 mg PO DAILY [facility] Last Admin: 09/11/21 09:26 Dose: 50 mg Documented by: Trazodone HCl (Trazodone Hcl 50 Mg Tablet) 150 mg PO BEDTIME [facility] Last Admin: 09/10/21 20:26 Dose: 150 mg Documented by: Trazodone HCl (Trazodone Hcl 50 Mg Tablet) 50 mg PO BEDTIME PRN PRN Reason: Insomnia Valacyclovir HCl (Valacycyclovir Hcl 1,000 Mg Tablet) 1,000 mg PO BID [facility] Last Admin: 09/11/21 09:26 Dose: 1,000 mg Documented by: Vitamin D (Cholecalciferol (Vitamin D3) 25 Mcg Tablet) 25 mcg PO DAILY [facility] Last Admin: 09/11/21 09:25 Dose: 25 mcg Documented by: Allergies Allergies Allergy/AdvReac Type Severity Reaction Status Date / Time aspirin [Aspirin] Allergy Severe HIVES,THROAT Verified 06/05/21 21:34 SWELLS bee pollen [BEE STINGS] Allergy Severe ANAPHYLAXIS Verified 06/05/21 21:34 diphenhydramine Allergy Severe hives, Verified 06/05/21 21:34 [From BENADRYL ALLERGY] throat swells Penicillins [PCN] Allergy Severe HIVES Verified 06/05/21 21:34 THROAT SWELLS Sulfa (Sulfonamide Allergy Intermediate HIVES Verified 06/05/21 21:34 Antibiotics) [SULFA (SULFONAMIDE ANTIBIOTICS)] tramadol [TRAMADOL] Allergy Intermediate ITCHING Verified 06/05/21 21:34 latex [LATEX] Allergy Unknown UNKNOWN Verified 06/05/21 21:34 penicillin G Allergy Unknown Unknown Verified 06/05/21 21:34 levofloxacin [From Levaquin] Allergy Hives Verified 06/05/21 21:34 bee stings Allergy Unknown Unknown Uncoded 06/05/21 21:34 [employer] Allergy Unknown Unknown Uncoded 06/05/21 21:34 sulfa drugs Allergy Unknown Unknown Uncoded 06/05/21 21:34 Assessment & Plan Assessment & Plan (1) Bipolar disorder: Qualifiers: Active/Remission status: currently active Current bipolar episode type: depressed Current episode severity: unspecified Qualified Code(s): F31.30 - Bipolar disorder, current episode depressed, mild or moderate severity, unspecified Status: Acute Code(s): F31.9 - Bipolar disorder, unspecified (2) PTSD (post-traumatic stress disorder): Status: Acute Code(s): F43.10 - Post-traumatic stress disorder, unspecified (3) Cocaine use disorder: Status: Acute Code(s): F14.10 - Cocaine abuse, uncomplicated Assessment and Plan: Continue current regime Trial of Gabapentin 200 mg bid for BLE pain/discomfort I spent 20 minutes with the patient and/or on the patient floor today, greater than?50% of which was spent counseling/coordinating care. Patient educated on: diagnosis and therapeutic strategies Informed Consent: understands and further education needed Reason for contiued inpatient stay Substantial Risk for: harm to self, harm to others, inability to function, rapid decompensation and med/psych decompensation
[2021-09-11] MEDS: Benztropine Mesylate 1 MG TABLET PO (21:20)
[2021-09-11 21:21] VITALS: BP 117/63; PULSE 77
[2021-09-11] MEDS: Prazosin HCL 1 MG CAPSULE 2 MG PO (21:21)
[2021-09-11] MEDS: traZODone HCL 50 MG TABLET 150 MG PO (21:21)
[2021-09-11] MEDS: Gabapentin 100 MG CAPSULE 200 MG PO (21:21)
[2021-09-12] MEDS: Fluticasone/Vilanterol 200/25 BLST.W.DEV 1 PUFF INHALE (09:21)
[2021-09-12] MEDS: Acetaminophen 325 MG TABLET 650 MG PO ×2 (09:21→19:05)
[2021-09-12] MEDS: Omeprazole 20 MG CAPSULE.DR PO (09:22)
[2021-09-12] MEDS: Cholecalciferol (Vitamin D3) 25 MCG TABLET PO (09:22)
[2021-09-12] MEDS: Ferrous Sulfate 324 MG TABLET.DR PO (09:22)
[2021-09-12] MEDS: Mineral Oil/Petrolatum,White 106 GM Tube 1 APPL TOPICAL (09:22)
[2021-09-12] MEDS: Sertraline HCL 50 MG TABLET PO (09:22)
[2021-09-12] MEDS: Gabapentin 100 MG CAPSULE 200 MG PO ×2 (09:22→20:08)
[2021-09-12] MEDS: Lithium Carbonate 300 MG CAPSULE 600 MG PO ×2 (09:22→20:08)
[2021-09-12] MEDS: Nicotine 21 MG PATCH.TD24 TRANSDERMA (09:23)
[2021-09-12] MEDS: OLANZapine 10 MG TABLET PO ×2 (09:37→20:09)
--- NOTE | 2021-09-12 10:16 | HO.PSYCHPN ---
Subjective Subjective Date of Service: 09/12/21 Reason For Visit: PTSD; Bipolar Disorder; Stimulant Use Disorder-Krista Subjective Notes: Conditional Voluntary Medical Problems Affecting Mental Status: No Interim History: Patient was seen in rounds and discussed today. Records and treatment plan reviewed. Labs were reviewed. She continues to be somewhat depressed and has had some passive SI but no plans or intent. She has been med compliant. No complaints or side effects. Eating and sleeping adequately. She has been having some problems with her knees which may be arthritic in nature. Eating and sleeping well. No changes were made today. She is tolerating gabapentin well Mental Status Exam Mental Status Exam Patient Appearance: Appropriate Patient Orientation: Person, Place, Time and Situation Level of Consciousness: Alert Patient Behavior: Talkative, Good Eye Contact and Crying Mood Description: Depressed, Anxious, Sad, Nervous and Apprehensive Affect Description: Anxious and Flat Patient Cognition Impaired: No Ability to Follow Directions: Good Speech Pattern: Spontaneous Speech Memory Description: Episodic Impaired Hallucinations: Auditory Delusions: Paranoid Ideation Perceptual Disturbances: Depersonalization and Derealization Thought Process: Distracted and Rumination Thought Content: positive for Circumstantial, positive for Perseveration and positive for Suicidal Ideation Depressive Symptoms: Increased Anxiety, Insomnia, Diff. Making Decisions, Increased Irritability, Difficulty Sleeping, Changes in Appetite, Loss of Int. in Activity, Feelings of Worthlessness, Hopelessness, Isolating-Friends/Family, Feelings of Guilt, Unhappiness, Increased Fatigue, Thoughts of /Suicide, Low Self Esteem, Loss of Energy and Difficulty Concentrating Judgement: Fair Diagnostics Vital Signs (24Hr): Vital Signs - 24 hr 09/11/21 21:21 Pulse Rate 77 Blood Pressure 117/63 Body Mass Index 38.6 Labs Results: 09/09/21 08:06 09/09/21 08:06 Medications Medications Current Medications Acetaminophen (Acetaminophen 325 Mg Tablet) 650 mg PO Q6H PRN PRN Reason: Headache/Pain Mild Scale (1-3) Last Admin: 09/12/21 09:21 Dose: 650 mg Documented by: Al Hydroxide/Mg Hydroxide (Magnesium Hydrox/Alum Hydrox 30 Ml Oral.Susp) 30 ml PO Q6H PRN PRN Reason: Heartburn/Nausea Albuterol Sulfate (Albuterol Sulfate 90 Mcg 8 Gm Inhaler) 2 puff INHALE QID PRN PRN Reason: wheezing Benztropine Mesylate (Benztropine Mesylate 1 Mg Tablet) 1 mg PO BEDTIME [facility] Last Admin: 09/11/21 21:20 Dose: 1 mg Documented by: Ferrous Sulfate (Ferrous Sulfate 324 Mg Tablet.) 324 mg PO DAILY [facility] Last Admin: 09/12/21 09:22 Dose: 324 mg Documented by: Fluticasone/Vilanterol (Fluticasone/Vilanterol 200/25 Blst.W.Dev) 1 puff INHALE DAILY [facility] Last Admin: 09/12/21 09:21 Dose: 1 puff Documented by: Gabapentin (Gabapentin 100 Mg Capsule) 200 mg PO BID [facility] Last Admin: 09/12/21 09:22 Dose: 200 mg Documented by: Ibuprofen (Ibuprofen 800 Mg Tablet) 800 mg PO Q8H PRN PRN Reason: leg pain [place] Carbonate ([place] Carbonate 300 Mg Capsule) 600 mg PO BID [facility] Last Admin: 09/12/21 09:22 Dose: 600 mg Documented by: Magnesium Hydroxide (Milk Of Magnesia 30 Ml Oral.Susp) 30 ml PO DAILY PRN PRN Reason: Constipation Multi-Ingred Cream/Lotion/Oil/Oint (Mineral Oil/Petrolatum,White 106 Gm Tube) 1 appl TOPICAL TID [facility]; Protocol Last Admin: 09/12/21 09:22 Dose: 1 appl Documented by: Nicotine (Nicotine 21 Mg Patch.Td24) 21 mg TRANSDERMA DAILY [facility] Last Admin: 09/12/21 09:23 Dose: 21 mg Documented by: Olanzapine (Olanzapine 10 Mg Tablet) 10 mg PO BID [facility] Last Admin: 09/12/21 09:37 Dose: 10 mg Documented by: Omeprazole (Omeprazole 20 Mg Capsule.) 20 mg PO DAILY@0630 [facility] Last Admin: 09/12/21 09:22 Dose: 20 mg Documented by: Pharmacy Consult (Consult Rx Perform Med Rec) 1 each MISCELLANE ONCE PRN PRN Reason: Consult order Prazosin HCl (Prazosin Hcl 1 Mg Capsule) 2 mg PO BEDTIME [facility]; Protocol Last Admin: 09/11/21 21:21 Dose: 2 mg Documented by: Sertraline HCl (Sertraline Hcl 50 Mg Tablet) 50 mg PO DAILY [facility] Last Admin: 09/12/21 09:22 Dose: 50 mg Documented by: Trazodone HCl (Trazodone Hcl 50 Mg Tablet) 150 mg PO BEDTIME [facility] Last Admin: 09/11/21 21:21 Dose: 150 mg Documented by: Trazodone HCl (Trazodone Hcl 50 Mg Tablet) 50 mg PO BEDTIME PRN PRN Reason: Insomnia Valacyclovir HCl (Valacycyclovir Hcl 1,000 Mg Tablet) 1,000 mg PO BID [facility] Last Admin: 09/12/21 09:22 Dose: 1,000 mg Documented by: Vitamin D (Cholecalciferol (Vitamin D3) 25 Mcg Tablet) 25 mcg PO DAILY [facility] Last Admin: 09/12/21 09:22 Dose: 25 mcg Documented by: Allergies Allergies Allergy/AdvReac Type Severity Reaction Status Date / Time aspirin [Aspirin] Allergy Severe HIVES,THROAT Verified 06/05/21 21:34 SWELLS bee pollen [BEE STINGS] Allergy Severe ANAPHYLAXIS Verified 06/05/21 21:34 diphenhydramine Allergy Severe hives, Verified 06/05/21 21:34 [From BENADRYL ALLERGY] throat swells Penicillins [PCN] Allergy Severe HIVES Verified 06/05/21 21:34 THROAT SWELLS Sulfa (Sulfonamide Allergy Intermediate HIVES Verified 06/05/21 21:34 Antibiotics) [SULFA (SULFONAMIDE ANTIBIOTICS)] tramadol [TRAMADOL] Allergy Intermediate ITCHING Verified 06/05/21 21:34 latex [LATEX] Allergy Unknown UNKNOWN Verified 06/05/21 21:34 penicillin G Allergy Unknown Unknown Verified 06/05/21 21:34 levofloxacin [From Levaquin] Allergy Hives Verified 06/05/21 21:34 bee stings Allergy Unknown Unknown Uncoded 06/05/21 21:34 [employer] Allergy Unknown Unknown Uncoded 06/05/21 21:34 sulfa drugs Allergy Unknown Unknown Uncoded 06/05/21 21:34 Assessment & Plan Assessment & Plan (1) Bipolar disorder: Qualifiers: Active/Remission status: currently active Current bipolar episode type: depressed Current episode severity: unspecified Qualified Code(s): F31.30 - Bipolar disorder, current episode depressed, mild or moderate severity, unspecified Status: Acute Code(s): F31.9 - Bipolar disorder, unspecified (2) PTSD (post-traumatic stress disorder): Status: Acute Code(s): F43.10 - Post-traumatic stress disorder, unspecified (3) Cocaine use disorder: Status: Acute Code(s): F14.10 - Cocaine abuse, uncomplicated Assessment and Plan: Continue current regime I spent minutes with the patient and/or on the patient floor today, greater than?50% of which was spent counseling/coordinating care. Reason for contiued inpatient stay Substantial Risk for: other
[2021-09-12 11:08] VITALS: BP 123/68; PULSE 87; RESP 18; TEMP 36.6; O2SAT 93
[2021-09-12] MEDS: Ibuprofen 800 MG TABLET PO (12:16)
[2021-09-12 20:09] VITALS: BP 127/67; PULSE 87
[2021-09-12] MEDS: Benztropine Mesylate 1 MG TABLET PO (20:09)
[2021-09-12] MEDS: Prazosin HCL 1 MG CAPSULE 2 MG PO (20:09)
[2021-09-12] MEDS: traZODone HCL 50 MG TABLET 150 MG PO (20:09)
[2021-09-12 20:15] VITALS: BP 127/67; PULSE 87; TEMP 36.1; O2SAT 94
[2021-09-13 06:00] VITALS: BP 112/70; PULSE 75; RESP 16; TEMP 36.4; O2SAT 95
[2021-09-13] MEDS: Acetaminophen 325 MG TABLET 650 MG PO ×3 (07:54→18:56)
[2021-09-13] MEDS: Fluticasone/Vilanterol 200/25 BLST.W.DEV 1 PUFF INHALE (07:54)
[2021-09-13] MEDS: Cholecalciferol (Vitamin D3) 25 MCG TABLET PO (07:55)
[2021-09-13] MEDS: OLANZapine 10 MG TABLET PO ×2 (07:55→18:58)
[2021-09-13] MEDS: Lithium Carbonate 300 MG CAPSULE 600 MG PO ×2 (07:55→18:57)
[2021-09-13] MEDS: Ferrous Sulfate 324 MG TABLET.DR PO (07:55)
[2021-09-13] MEDS: Gabapentin 100 MG CAPSULE 200 MG PO ×2 (07:55→18:57)
[2021-09-13] MEDS: Sertraline HCL 50 MG TABLET PO (07:55)
[2021-09-13] MEDS: Omeprazole 20 MG CAPSULE.DR PO (07:55)
[2021-09-13] MEDS: Nicotine 21 MG PATCH.TD24 TRANSDERMA (07:57)
--- NOTE | 2021-09-13 08:49 | P.PNPSI_ITS ---
Subjective Subjective Date of Service: 09/13/21 Reason For Visit: PTSD; Bipolar Disorder; Stimulant Use Disorder-Krista Subjective Notes: Conditional Voluntary Interim History: Patient was seen in rounds and discussed. Records were reviewed. She continues to be somewhat anxious. Having some visual hallucinations and confused at times. No complaints or side effects. Eating and sleeping adequately. No changes were made today Review of Systems Review of Systems Anxiety and sleep related issues Yes all other systems are reviewed and are negative Mental Status Exam Mental Status Exam Patient Appearance: Appropriate Patient Orientation: Person, Place, Time and Situation Level of Consciousness: Alert Patient Behavior: Talkative, Good Eye Contact and Crying Mood Description: Depressed, Anxious, Sad, Nervous and Apprehensive Affect Description: Anxious and Flat Patient Cognition Impaired: No Ability to Follow Directions: Good Speech Pattern: Spontaneous Speech Memory Description: Episodic Impaired Hallucinations: Auditory Delusions: Paranoid Ideation Perceptual Disturbances: Depersonalization and Derealization Thought Process: Distracted and Rumination Thought Content: positive for Circumstantial, positive for Perseveration and positive for Suicidal Ideation Depressive Symptoms: Increased Anxiety, Insomnia, Diff. Making Decisions, Increased Irritability, Difficulty Sleeping, Changes in Appetite, Loss of Int. in Activity, Feelings of Worthlessness, Hopelessness, Isolating-Friends/Family, Feelings of Guilt, Unhappiness, Increased Fatigue, Thoughts of /Suicide, Low Self Esteem, Loss of Energy and Difficulty Concentrating Judgement: Fair Diagnostics Vital Signs (24Hr): Vital Signs - 24 hr 09/12/21 11:08 09/12/21 20:09 09/12/21 20:15 Temperature 97.9 F 97.0 F Pulse Rate 87 87 87 Respiratory Rate 18 Blood Pressure 123/68 127/67 127/67 Pulse Oximetry 93 94 Body Mass Index 38.6 Labs Results: 09/09/21 08:06 09/09/21 08:06 Medications Medications Current Medications Acetaminophen (Acetaminophen 325 Mg Tablet) 650 mg PO Q6H PRN PRN Reason: Headache/Pain Mild Scale (1-3) Last Admin: 09/13/21 07:54 Dose: 650 mg Documented by: Al Hydroxide/Mg Hydroxide (Magnesium Hydrox/Alum Hydrox 30 Ml Oral.Susp) 30 ml PO Q6H PRN PRN Reason: Heartburn/Nausea Albuterol Sulfate (Albuterol Sulfate 90 Mcg 8 Gm Inhaler) 2 puff INHALE QID PRN PRN Reason: wheezing Benztropine Mesylate (Benztropine Mesylate 1 Mg Tablet) 1 mg PO BEDTIME [facility] Last Admin: 09/12/21 20:09 Dose: 1 mg Documented by: Ferrous Sulfate (Ferrous Sulfate 324 Mg Tablet.) 324 mg PO DAILY [facility] Last Admin: 09/13/21 07:55 Dose: 324 mg Documented by: Fluticasone/Vilanterol (Fluticasone/Vilanterol 200/25 Blst.W.Dev) 1 puff INHALE DAILY [facility] Last Admin: 09/13/21 07:54 Dose: 1 puff Documented by: Gabapentin (Gabapentin 100 Mg Capsule) 200 mg PO BID [facility] Last Admin: 09/13/21 07:55 Dose: 200 mg Documented by: Ibuprofen (Ibuprofen 800 Mg Tablet) 800 mg PO Q8H PRN PRN Reason: leg pain Last Admin: 09/12/21 12:16 Dose: 800 mg Documented by: [place] Carbonate ([place] Carbonate 300 Mg Capsule) 600 mg PO BID [facility] Last Admin: 09/13/21 07:55 Dose: 600 mg Documented by: Magnesium Hydroxide (Milk Of Magnesia 30 Ml Oral.Susp) 30 ml PO DAILY PRN PRN Reason: Constipation Multi-Ingred Cream/Lotion/Oil/Oint (Mineral Oil/Petrolatum,White 106 Gm Tube) 1 appl TOPICAL TID [facility]; Protocol Last Admin: 09/13/21 08:35 Dose: Not Given Documented by: Nicotine (Nicotine 21 Mg Patch.Td24) 21 mg TRANSDERMA DAILY [facility] Last Admin: 09/13/21 07:57 Dose: 21 mg Documented by: Olanzapine (Olanzapine 10 Mg Tablet) 10 mg PO BID [facility] Last Admin: 09/13/21 07:55 Dose: 10 mg Documented by: Omeprazole (Omeprazole 20 Mg Capsule.) 20 mg PO DAILY@0630 [facility] Last Admin: 09/13/21 07:55 Dose: 20 mg Documented by: Pharmacy Consult (Consult Rx Perform Med Rec) 1 each MISCELLANE ONCE PRN PRN Reason: Consult order Prazosin HCl (Prazosin Hcl 1 Mg Capsule) 2 mg PO BEDTIME [facility]; Protocol Last Admin: 09/12/21 20:09 Dose: 2 mg Documented by: Sertraline HCl (Sertraline Hcl 50 Mg Tablet) 50 mg PO DAILY [facility] Last Admin: 09/13/21 07:55 Dose: 50 mg Documented by: Trazodone HCl (Trazodone Hcl 50 Mg Tablet) 150 mg PO BEDTIME [facility] Last Admin: 09/12/21 20:09 Dose: 150 mg Documented by: Trazodone HCl (Trazodone Hcl 50 Mg Tablet) 50 mg PO BEDTIME PRN PRN Reason: Insomnia Valacyclovir HCl (Valacycyclovir Hcl 1,000 Mg Tablet) 1,000 mg PO BID [facility] Last Admin: 09/13/21 07:55 Dose: 1,000 mg Documented by: Vitamin D (Cholecalciferol (Vitamin D3) 25 Mcg Tablet) 25 mcg PO DAILY [facility] Last Admin: 09/13/21 07:55 Dose: 25 mcg Documented by: Allergies Allergies Allergy/AdvReac Type Severity Reaction Status Date / Time aspirin [Aspirin] Allergy Severe HIVES,THROAT Verified 06/05/21 21:34 SWELLS bee pollen [BEE STINGS] Allergy Severe ANAPHYLAXIS Verified 06/05/21 21:34 diphenhydramine Allergy Severe hives, Verified 06/05/21 21:34 [From BENADRYL ALLERGY] throat swells Penicillins [PCN] Allergy Severe HIVES Verified 06/05/21 21:34 THROAT SWELLS Sulfa (Sulfonamide Allergy Intermediate HIVES Verified 06/05/21 21:34 Antibiotics) [SULFA (SULFONAMIDE ANTIBIOTICS)] tramadol [TRAMADOL] Allergy Intermediate ITCHING Verified 06/05/21 21:34 latex [LATEX] Allergy Unknown UNKNOWN Verified 06/05/21 21:34 penicillin G Allergy Unknown Unknown Verified 06/05/21 21:34 levofloxacin [From Levaquin] Allergy Hives Verified 06/05/21 21:34 bee stings Allergy Unknown Unknown Uncoded 06/05/21 21:34 DairyCare Allergy Unknown Unknown Uncoded 06/05/21 21:34 sulfa drugs Allergy Unknown Unknown Uncoded 06/05/21 21:34 Assessment & Plan Assessment & Plan (1) Bipolar disorder: Qualifiers: Active/Remission status: currently active Current bipolar episode type: depressed Current episode severity: unspecified Qualified Code(s): F31.30 - Bipolar disorder, current episode depressed, mild or moderate severity, unspecified Status: Acute Code(s): F31.9 - Bipolar disorder, unspecified (2) PTSD (post-traumatic stress disorder): Status: Acute Code(s): F43.10 - Post-traumatic stress disorder, unspecified (3) Cocaine use disorder: Status: Acute Code(s): F14.10 - Cocaine abuse, uncomplicated Assessment and Plan: 09/13/21 continuecurrent regime and plans I spent minutes with the patient and/or on the patient floor today, greater than?50% of which was spent counseling/coordinating care. Reason for contiued inpatient stay Substantial Risk for: other
[2021-09-13] MEDS: Ibuprofen 800 MG TABLET PO (12:53)
[2021-09-13 18:00] VITALS: BP 143/64; PULSE 88; TEMP 36.1; O2SAT 96
[2021-09-13] MEDS: traZODone HCL 50 MG TABLET 150 MG PO (18:57)
[2021-09-13] MEDS: Prazosin HCL 1 MG CAPSULE 2 MG PO (18:58)
[2021-09-13] MEDS: Benztropine Mesylate 1 MG TABLET PO (19:04)
[2021-09-13] MEDS: Mineral Oil/Petrolatum,White 106 GM Tube 1 APPL TOPICAL (19:04)
[2021-09-14 06:00] VITALS: BP 132/81; PULSE 78; RESP 18; TEMP 36.3; O2SAT 95
[2021-09-14] MEDS: Omeprazole 20 MG CAPSULE.DR PO (06:18)
[2021-09-14] MEDS: Ibuprofen 800 MG TABLET PO (07:48)
[2021-09-14] MEDS: Lithium Carbonate 300 MG CAPSULE 600 MG PO (08:08)
[2021-09-14] MEDS: Gabapentin 100 MG CAPSULE 200 MG PO (08:08)
[2021-09-14] MEDS: Fluticasone/Vilanterol 200/25 BLST.W.DEV 1 PUFF INHALE (08:08)
[2021-09-14] MEDS: Nicotine 21 MG PATCH.TD24 TRANSDERMA (08:08)
[2021-09-14] MEDS: Cholecalciferol (Vitamin D3) 25 MCG TABLET PO (08:09)
[2021-09-14] MEDS: Sertraline HCL 50 MG TABLET PO (08:09)
[2021-09-14] MEDS: Ferrous Sulfate 324 MG TABLET.DR PO (08:09)
[2021-09-14] MEDS: OLANZapine 10 MG TABLET PO (08:09)
--- NOTE | 2021-09-14 17:48 | P.DS_ITS ---
DS: Providers Provider Date of Service: 09/14/21 Date of admission: 09/08/21 21:58 Date of discharge: 09/14/21 Primary care physician: [facility] Admitting clinician: Reina Lyle Attending physician on admission: Mayo Cardona Consults: 09/08/21 22:00 Consult to Hospitalist Routine Consulting Provider: Hospitalist Reason For Exam: admission 09/09/21 11:30 Consult to Hospitalist Routine Consulting Provider: Hospitalist Reason For Exam: BLE pain-difficulty walking; L Ear Pain Attending physician on discharge: Mayo Cardona Discharging clinician: Reina Lyle DS: Diagnosis Discharge Diagnosis (1) Bipolar disorder: Status: Acute (2) PTSD (post-traumatic stress disorder): Status: Acute (3) Cocaine use disorder: Status: Acute DS: Medications Discharge Medications Home Medications: Previous Rx's Medication Instructions Recorded albuterol sulfate 90 mcg/actuation 2 puff INHALATION QID PRN #1 g 09/14/21 aerosol inhaler benztropine 1 mg tablet 1 mg PO BEDTIME #30 tab 09/14/21 cholecalciferol (vitamin D3) 25 25 mcg PO DAILY #30 tab 09/14/21 mcg (1,000 unit) tablet ferrous sulfate 324 mg (65 mg 324 mg PO DAILY #30 tab 09/14/21 iron) tablet,delayed release fluticasone 232 mcg-salmeterol 14 1 inh INHALATION BID #1 ea 09/14/21 mcg/actuation breath activated powdr (AirDuo RespiClick) lithium carbonate 600 mg capsule 600 mg PO BID #60 cap 09/14/21 nicotine 21 mg/24 hr daily 21 mg TRANSDERMAL DAILY #30 ea 09/14/21 transdermal patch olanzapine 10 mg tablet 10 mg PO BID #60 tab 09/14/21 omeprazole 20 mg capsule,delayed 20 mg PO DAILY@0630 #30 cap 09/14/21 release prazosin 1 mg capsule 2 mg PO BEDTIME #60 cap 09/14/21 sertraline 50 mg tablet 50 mg PO DAILY #30 tab 09/14/21 trazodone 150 mg tablet 150 mg PO BEDTIME #30 tab 09/14/21 valacyclovir 1 gram tablet 1,000 mg PO BID #60 tab 09/14/21 white petrolatum-mineral oil 1 appl TOPICAL TID #1 g 09/14/21 topical cream (Dermacerin) Mental Status Exam Mental Status Exam Patient Appearance: Appropriate Patient Orientation: Person, Place, Time and Situation Level of Consciousness: Awake and Alert Patient Behavior: Appropriate, Talkative, Cooperative and Good Eye Contact Mood Description: Calm Affect Description: Calm Patient Cognition Impaired: No Ability to Follow Directions: Good Speech Pattern: Spontaneous Speech Memory Description: Intact Hallucinations: None Delusions: Not Present Thought Process: Intact Thought Content: positive for [place] and positive for Circumstantial Judgement: Good Data Data Completed and Pending Completed studies during hospitalization [Text1]: 09/07/21 09/07/21 09/07/21 17:25 17:25 17:25 WBC RBC Hgb Hct MCV MCH MCHC RDW Plt Count MPV Immature Gran % (Auto) Neut % (Auto) Lymph % (Auto) [place] % (Auto) Eos % (Auto) Baso % (Auto) Lymph # (Auto) [place] # (Auto) Eos # (Auto) Baso # (Auto) Abs Immat Gran (auto) Absolute Neuts (auto) Absolute Nucleated RBC Nucleated RBC % (auto) D-Dimer Sodium Potassium Chloride Carbon Dioxide Anion Gap BUN Creatinine Estim Creat Clear Calc Estimated GFR Random Glucose Fasting Glucose Estimat Average Glucose Hemoglobin A1c % Calcium Total Bilirubin Direct Bilirubin AST ALT Alkaline Phosphatase Total Protein Albumin Triglycerides Cholesterol LDL Cholesterol, Calc HDL Cholesterol Vitamin B12 Folate TSH Urine Color YELLOW Urine Appearance HAZY Urine pH 7.0 Ur Specific [place] 1.015 Urine Protein TRACE Urine Glucose (UA) NEG Urine Ketones 5 Urine Blood NEG Urine Nitrite NEG Ur Leukocyte Esterase 3+ H Urine RBC 1-4 Urine WBC 10-14 H Ur Squamous Epith Cells 4+ Urine Bacteria TRACE Urine Mucus TRACE Urine Opiates Screen Not Detected Urine Fentanyl Screen Not Detected Ur Barbiturates Screen Not Detected Ur Phencyclidine Scrn Not Detected Ur Amphetamines Screen Not Detected U Benzodiazepines Scrn Not Detected Urine Cocaine Screen POSITIVE H U Marijuana (THC) Screen Not Detected Ethyl Alcohol COVID-19 (ENDY) Negative COVID-19 Clin Com See Note 09/07/21 09/07/21 09/07/21 18:14 18:14 18:14 WBC 7.4 RBC 4.27 Hgb 12.9 Hct 39.8 MCV 93.2 MCH 30.2 MCHC 32.4 RDW 13.1 Plt Count 260 MPV 10.0 Immature Gran % (Auto) 0.3 Neut % (Auto) 59.3 Lymph % (Auto) 32.3 [place] % (Auto) 5.4 Eos % (Auto) 1.6 Baso % (Auto) 1.1 Lymph # (Auto) 2.4 [place] # (Auto) 0.4 Eos # (Auto) 0.1 Baso # (Auto) 0.1 Abs Immat Gran (auto) 0.02 Absolute Neuts (auto) 4.4 Absolute Nucleated RBC 0.000 Nucleated RBC % (auto) 0.0 D-Dimer Sodium 140 Potassium 4.5 Chloride 104 Carbon Dioxide 29 Anion Gap 12 BUN 8 L D Creatinine 0.78 Estim Creat Clear Calc 103.9 Estimated GFR > 60 Random Glucose 110 Fasting Glucose Estimat Average Glucose Hemoglobin A1c % Calcium 9.9 Total Bilirubin Direct Bilirubin AST ALT Alkaline Phosphatase Total Protein Albumin Triglycerides Cholesterol LDL Cholesterol, Calc HDL Cholesterol Vitamin B12 Folate TSH Urine Color Urine Appearance Urine pH Ur Specific [place] Urine Protein Urine Glucose (UA) Urine Ketones Urine Blood Urine Nitrite Ur Leukocyte Esterase Urine RBC Urine WBC Ur Squamous Epith Cells Urine Bacteria Urine Mucus Urine Opiates Screen Urine Fentanyl Screen Ur Barbiturates Screen Ur Phencyclidine Scrn Ur Amphetamines Screen U Benzodiazepines Scrn Urine Cocaine Screen U Marijuana (THC) Screen Ethyl Alcohol < 10 COVID-19 (ENDY) COVID-19 Clin Com 09/09/21 09/09/21 09/09/21 08:06 08:06 19:31 WBC 6.2 RBC 4.41 Hgb 13.2 Hct 41.7 MCV 94.6 MCH 29.9 MCHC 31.7 RDW 12.9 Plt Count 185 D MPV 11.8 Immature Gran % (Auto) 0.3 Neut % (Auto) 45.9 Lymph % (Auto) 42.4 H [place] % (Auto) 6.7 Eos % (Auto) 3.6 Baso % (Auto) 1.1 Lymph # (Auto) 2.6 [place] # (Auto) 0.4 Eos # (Auto) 0.2 Baso # (Auto) 0.1 Abs Immat Gran (auto) 0.02 Absolute Neuts (auto) 2.8 Absolute Nucleated RBC 0.000 Nucleated RBC % (auto) 0.0 D-Dimer 233 Sodium 140 Potassium 4.7 Chloride 104 Carbon Dioxide 28 Anion Gap 13 BUN 10 Creatinine 0.70 Estim Creat Clear Calc 115.8 Estimated GFR > 60 Random Glucose Fasting Glucose 116 H Estimat Average Glucose Hemoglobin A1c % Calcium 9.5 Total Bilirubin 0.2 Direct Bilirubin < 0.2 AST 15 ALT 33 H Alkaline Phosphatase 87 D Total Protein 6.2 L Albumin 3.9 Triglycerides Cholesterol LDL Cholesterol, Calc HDL Cholesterol Vitamin B12 Folate TSH Urine Color Urine Appearance Urine pH Ur Specific [place] Urine Protein Urine Glucose (UA) Urine Ketones Urine Blood Urine Nitrite Ur Leukocyte Esterase Urine RBC Urine WBC Ur Squamous Epith Cells Urine Bacteria Urine Mucus Urine Opiates Screen Urine Fentanyl Screen Ur Barbiturates Screen Ur Phencyclidine Scrn Ur Amphetamines Screen U Benzodiazepines Scrn Urine Cocaine Screen U Marijuana (THC) Screen Ethyl Alcohol COVID-19 (ENDY) [employer] 09/10/21 09/10/21 09/10/21 07:59 07:59 07:59 WBC RBC Hgb Hct MCV MCH MCHC RDW Plt Count MPV Immature Gran % (Auto) Neut % (Auto) Lymph % (Auto) [place] % (Auto) Eos % (Auto) Baso % (Auto) Lymph # (Auto) [place] # (Auto) Eos # (Auto) Baso # (Auto) Abs Immat Gran (auto) Absolute Neuts (auto) Absolute Nucleated RBC Nucleated RBC % (auto) D-Dimer Sodium Potassium Chloride Carbon Dioxide Anion Gap BUN Creatinine Estim Creat Clear Calc Estimated GFR Random Glucose Fasting Glucose Estimat Average Glucose 108 Hemoglobin A1c % 5.4 Calcium Total Bilirubin Direct Bilirubin AST ALT Alkaline Phosphatase Total Protein Albumin Triglycerides 106 Cholesterol 177 LDL Cholesterol, Calc 106 HDL Cholesterol 50 Vitamin B12 370 Folate 7.4 TSH 4.49 H Urine Color Urine Appearance Urine pH Ur Specific [place] Urine Protein Urine Glucose (UA) Urine Ketones Urine Blood Urine Nitrite Ur Leukocyte Esterase Urine RBC Urine WBC Ur Squamous Epith Cells Urine Bacteria Urine Mucus Urine Opiates Screen Urine Fentanyl Screen Ur Barbiturates Screen Ur Phencyclidine Scrn Ur Amphetamines Screen U Benzodiazepines Scrn Urine Cocaine Screen U Marijuana (THC) Screen Ethyl Alcohol COVID-19 (ENDY) [employer] 09/07/21 Unknown Urine clean catch - Urine barker top Urine Culture - Final DS: Summary Hospital Course Hospital Course: Admission to adult psychiatry to address symptoms of PTSD, Bipolar Disorder, Cocaine Use Disorder. Care plan, medication regime and out patient plan of care prior to admission were reviewed. Education was provided regarding managment of symptoms, medication and side effects. Nursing and social service worked extensively with patient on collateral contacts, plan of care, education regarding managment of symptoms, medications and discharge planning. Previous regime was re-established. Olanzapine was titrated. Benztropine was added, [place], Prazosin, Sertraline and Trazodone were continued. A trial of Gabapentin 200 mg bid for BLE pain and stiffness with difficulty with ambulation was tried with success. Pt asked not to continue this upon discharge due to the risk of addiction. Homelessness is a major issue for pt. She plans on staying with a friend who has invited her to live with him. She reports this is a safe, low risk situation. Status at Discharge Cognitive/behavioral status at discharge: non-psychotic, non-suicidal Functional status at discharge: independent ambulation Overall status at discharge: patient is back to baseline Time Spent with Patient Time attestation: Total time spent providing and/or coordinating discharge services: 35 Time spent: Greater than 30 minutes Discharge Plan Discharge Patient Disposition: Xfer Other Discharge Diagnosis: PTSD Bipolar Disorder Cocaine Use Disorder Tobacco Use Disorder Referrals: Rosa Ponce (therapy) [Other] - 09/18/21 2:00 pm (This is a Telehealth appointment) Dr. Malvin Mars (psychiatry) [Other] - 1 Week (Please follow-up with [facility] outpatient clinic at the above number to obtain your follow-up psychiatry appointment) [facility] [Primary Care Provider] - 1 Week Discharge Medications: New olanzapine 10 mg Tablet 10 mg PO BID Qty: 60 RF: 0 benztropine 1 mg Tablet 1 mg PO BEDTIME Qty: 30 RF: 0 nicotine 21 mg/24 hr Patch 24 Hour 21 mg transdermal DAILY Qty: 30 RF: 0 Dermacerin Cream 1 appl topical TID Qty: 1 RF: 0 Continued valacyclovir 1 gram Tablet 1,000 mg PO BID Qty: 60 RF: 0 prazosin 1 mg Capsule 2 mg PO BEDTIME Qty: 60 RF: 0 lithium carbonate 600 mg Capsule 600 mg PO BID Qty: 60 RF: 0 trazodone 150 mg Tablet 150 mg PO BEDTIME Qty: 30 RF: 0 omeprazole 20 mg Capsule,Delayed Release(Dr/Ec) 20 mg PO DAILY@0630 Qty: 30 RF: 0 albuterol sulfate 90 mcg/actuation HFA aerosol inhaler 2 puff inhalation QID PRN (Reason: wheezing) Qty: 1 RF: 0 sertraline 50 mg Tablet 50 mg PO DAILY Qty: 30 RF: 0 cholecalciferol (vitamin D3) 25 mcg (1,000 unit) Tablet 25 mcg PO DAILY Qty: 30 RF: 0 ferrous sulfate 324 mg (65 mg iron) Tablet,Delayed Release (Dr/Ec) 324 mg PO DAILY Qty: 30 RF: 0 fluticasone propion-salmeterol [AirDuo RespiClick] 232-14 mcg/actuation Aerosol Powdr Breath Activated 1 inh INHALATION BID Qty: 1 RF: 0 Discontinued olanzapine 5 mg Tablet 5 mg PO BID RF: 0 prednisone 20 mg Tablet PO DAILY RF: 0 No Action naproxen [Naprosyn] 500 mg tablet 500 mg PO BID Qty: 20 RF: 0 Discharge Orders: Discharge Order (Routine); Ordered 09/14/21 Ordered By: Reina Lyle Diet: advance to usual diet Activity on Discharge: As tolerated Stand Alone Forms: Patient Portal Discharge page Care Plan Goals: Mood Stabilization Sobriety Health Concerns: PTSD Bipolar Disorder Cocaine Use Disorder Tobacco Use Disorder Plan of Treatment: Attend appointments as scheduled Take medications as directed Assessment: Non-suicidal, non-psychotic [place] level is due this week-pt re-started upon admission and has not had a level since admission Gabapentin 200 mg twice per day was successful in managing leg pain sx. We have discontinued this upon discharge as pt wants no potentially addictive medications in her regime. She will discuss ongoing care with her PCP team. Discharge Date/Time: 09/14/21 14:31
== END 2021-09-14 14:31 | disposition other institution (70) | DRG 753 ==
LOC: HO.ED 09-08 22:08 → HO.PM5 09-08 22:10
PROVIDERS: Internal Medicine; Admitting Provider Psychiatry & Neurology Psychiatry; Emergency Provider Internal Medicine; Visit Provider Clinical Nurse Specialist Psychiatric/Mental Health, Adult
DX: F31.30 Bipolar disorder, current episode depressed, mild or moderate severity, unspecified (principal); R45.851 Suicidal ideations; F14.10 Cocaine abuse, uncomplicated; F17.210 Nicotine dependence, cigarettes, uncomplicated; J44.9 Chronic obstructive pulmonary disease, unspecified; M79.605 Pain in left leg; M79.604 Pain in right leg; Z20.822 Contact with and (suspected) exposure to COVID-19; F43.10 Post-traumatic stress disorder, unspecified; Z71.6 Tobacco abuse counseling; Z88.0 Allergy status to penicillin; Z88.2 Allergy status to sulfonamides; Z59.02 Unsheltered homelessness; Z79.51 Long term (current) use of inhaled steroids; Z79.899 Other long term (current) drug therapy
CPT/HCPCS: 36415; 80048; 80053; 80061; 80307; 81001; 82077; 82248; 82607; 82746; 83036; 84443; 85025; 85379; 87086; 87635; 93005; 99285

== ENCOUNTER 2021-09-16 11:19 | Emergency (ER) | payer MEDICAID, SELFPAY ==
--- NOTE | ~2021-09-16 | XR_ITS ---
EXAMINATION: XR KNEE, RIGHT CLINICAL INFORMATION: Fall with injury right knee. Pain. COMPARISON: None TECHNIQUE: Four views of the right knee. FINDINGS: There is loss of medial and patellofemoral compartment joint space with moderate periarticular spurring. No visible acute fracture, dislocation or subluxation seen. No bony erosive changes. No loose bodies. No abnormal joint effusion. XR/XR knee RT 4V IMPRESSION: Moderate degenerative changes medial and patellofemoral compartment with periarticular spurring. No acute fracture or dislocation seen.
--- NOTE | ~2021-09-16 | XR_ITS ---
EXAMINATION: XR CHEST CLINICAL INFORMATION: Cough with green phlegm COMPARISON: Chest x-ray 07/21/2021 TECHNIQUE: 2 views of the chest were obtained. FINDINGS: No significant abnormality is noted involving the heart, lungs, mediastinum, bony thorax or soft tissues. XR/XR chest 2V IMPRESSION: Unremarkable chest exam.
[2021-09-16 11:27] VITALS: BP 110/64; BP 130/80; PULSE 82; PULSE 87; RESP 20; O2SAT 97; BMI 33.3
--- NOTE | 2021-09-16 11:32 | ED.LOWEXIN ---
HPI - Extremity Injury (Lower) General Chief Complaint: Fall Stated Complaint: MECH FALL,DIZZY,R KNEE PAIN Time Seen by Provider: 09/16/21 11:31 Source: patient Mode of arrival: EMS Limitations: no limitations History of Present Illness HPI Narrative: right knee gave out crossing the street. Patient might have lost consciousness with the leg pain. She also states she has had cough and green phlegm complaint: knee injury Onset (ago): minute(s) Place: street/outdoors Severity: moderate Exacerbating factors: nothing Other symptoms: loss of consciousness Related Data Previous Rx's Medication Instructions Recorded albuterol sulfate 90 mcg/actuation 2 puff INHALATION QID PRN #1 g 09/14/21 aerosol inhaler benztropine 1 mg tablet 1 mg PO BEDTIME #30 tab 09/14/21 cholecalciferol (vitamin D3) 25 25 mcg PO DAILY #30 tab 09/14/21 mcg (1,000 unit) tablet ferrous sulfate 324 mg (65 mg 324 mg PO DAILY #30 tab 09/14/21 iron) tablet,delayed release fluticasone 232 mcg-salmeterol 14 1 inh INHALATION BID #1 ea 09/14/21 mcg/actuation breath activated powdr (AirDuo RespiClick) lithium carbonate 600 mg capsule 600 mg PO BID #60 cap 09/14/21 nicotine 21 mg/24 hr daily 21 mg TRANSDERMAL DAILY #30 ea 09/14/21 transdermal patch olanzapine 10 mg tablet 10 mg PO BID #60 tab 09/14/21 omeprazole 20 mg capsule,delayed 20 mg PO DAILY@0630 #30 cap 09/14/21 release prazosin 1 mg capsule 2 mg PO BEDTIME #60 cap 09/14/21 sertraline 50 mg tablet 50 mg PO DAILY #30 tab 09/14/21 trazodone 150 mg tablet 150 mg PO BEDTIME #30 tab 09/14/21 valacyclovir 1 gram tablet 1,000 mg PO BID #60 tab 09/14/21 white petrolatum-mineral oil 1 appl TOPICAL TID #1 g 09/14/21 topical cream (Dermacerin) naproxen 500 mg tablet (Naprosyn) 500 mg PO BID #20 tab 09/16/21 Allergies Allergy/AdvReac Type Severity Reaction Status Date / Time aspirin [Aspirin] Allergy Severe HIVES,THROAT Verified 06/05/21 21:34 SWELLS bee pollen [BEE STINGS] Allergy Severe ANAPHYLAXIS Verified 06/05/21 21:34 diphenhydramine Allergy Severe hives, Verified 06/05/21 21:34 [From BENADRYL ALLERGY] throat swells Penicillins [PCN] Allergy Severe HIVES Verified 06/05/21 21:34 THROAT SWELLS Sulfa (Sulfonamide Allergy Intermediate HIVES Verified 06/05/21 21:34 Antibiotics) [SULFA (SULFONAMIDE ANTIBIOTICS)] tramadol [TRAMADOL] Allergy Intermediate ITCHING Verified 06/05/21 21:34 latex [LATEX] Allergy Unknown UNKNOWN Verified 06/05/21 21:34 penicillin G Allergy Unknown Unknown Verified 06/05/21 21:34 levofloxacin [From Levaquin] Allergy Hives Verified 06/05/21 21:34 bee stings Allergy Unknown Unknown Uncoded 06/05/21 21:34 DairyCare Allergy Unknown Unknown Uncoded 06/05/21 21:34 sulfa drugs Allergy Unknown Unknown Uncoded 06/05/21 21:34 Review of Systems Constitutional: Constitutional: Reports no additional constitutional complaints Eyes: Eyes: Reports no additional eye complaints ENT: Denies dizziness Cardiovascular: Cardiovascular: Reports no additional cardiovascular complaints Respiratory: Respiratory: Reports as per HPI Gastrointestinal: Gastrointestinal: Reports no additional gastrointestinal complaints Genitourinary: Genitourinary: Reports no additional female genitourinary complaints Musculoskeletal: Musculoskeletal: Reports no additional musculoskeletal complaints Integumentary/Breasts: Skin/Breast: Denies rash Neurologic: Reports system reviewed and no additional complaints, except as documented, Denies dizziness and Denies Sensory deficit (Neuro) Psychiatric: Psychiatric: Denies anxiety PMFSH Past Medical History Medical History Asthma exacerbation in COPD Bipolar disorder Bipolar I disorder Borderline personality disorder Borderline personality disorder COPD (chronic obstructive pulmonary disease) Depression Drug abuse Herpes Intermittent explosive disorder FABIOLA (obstructive sleep apnea) Post traumatic stress disorder (PTSD) PTSD (post-traumatic stress disorder) PTSD (post-traumatic stress disorder) Tobacco use Surgical History History of ankle surgery History of appendectomy History of back surgery Hx of cholecystectomy Family History Family History Mother COPD (chronic obstructive pulmonary disease) Social History Social History Household Members: None Household Members Other:: Pt states she hangs out with a male friend and a female friend Housing: Apartment Housing Other:: will be getting apartment 07/01 Do you presently have visiting nurse or other home services: No Unable to assess alcohol history related to: Unknown Alcohol intake: never Patient Tobacco Use Status: Current everyday Tobacco user Tobacco use type: Cigarette Cigarette Packs Per Day: 0.5 Cigarettes Per Day: 10.0 Years Smoked: 17 e-Cigarette/Vaping Use: Never Used Second Hand Smoke Exposure: Yes Substance Use Type: Crack/Cocaine Advance Directives: Yes Advance Directives on File: Yes Advance Directives Date on File: 12/24/20 service: No Current occupational status: unemployed and disabled Sexual orientation: Did not discuss Physical Exam Vital Signs: Vital Signs: Last Vital Signs Pulse 71 09/16/21 12:17 Resp 20 09/16/21 12:17 BP 97/55 L 09/16/21 12:17 Pulse Ox 93 09/16/21 12:17 Body Mass Index 33.3 Const: Other: patient resting comfortably Nutritional Appearance: obese Orientation/consciousness: oriented to person and patient oriented x3 Limitations: no limitations HENMT: Head: Yes normal to inspection Ears: external ears normal General nose exam: Normal external nose present Mouth: Normal oral and palatal mucosa present and oropharynx normal Throat: Yes posterior oropharynx normal Eyes: General: appearance normal, both eyes and all related structures Neck: Other: supple Neck: Yes normal visual inspection Chest: Chest palpation & inspection: normal inspection of the chest Resp: Auscultation: clear to auscultation bilaterally Cardio: Jugular venous distension: no JVD Rate: regular rate Rhythm: regular rhythm Heart sounds: S1 normal heart sound present and S2 normal heart sound present GI: Inspection: Yes normal to inspection Palpation (GI): Soft to palpation, nontender and No hepatosplenomegaly present Auscultation: normal bowel sounds : General: Yes no CVA tenderness Back/Spine/Pelvis: Back: no CVA tenderness Skin: General skin exam: no rashes or lesions noted Neuro: General: oriented to person and patient oriented x3 Cranial nerves: Yes CN's II-XII intact bilaterally Motor exam (neuro): 5/5 motor strength present throughout Sensory Exam: No Sensory deficit (Neuro) Extrem: Other: right knee with pain to palpation, no abrasion Psych: Appearance: grossly normal Course Reevaluation(s) Reevaluation #1: Doubt that this was a syncopal event, EKG and blood work normal with normal vitals. Patient with knee strain will place in knee immobilizer and dc home Time: 13:35 MDM - Extremity Injury (Lower) Lab Data Result diagrams: 09/16/21 12:23 09/16/21 12:23 Labs: Lab Results 09/16/21 09/16/21 09/16/21 Range/Units 12:23 12:23 12:23 WBC 6.6 (4.8-10.8) X10*3/uL RBC 4.06 L (4.20-5.50) X10*6/uL Hgb 12.1 (12.0-16.0) g/dl Hct 38.7 (37.0-47.0) % MCV 95.3 (80.0-98.0) fL MCH 29.8 (27.0-33.0) pg MCHC 31.3 (31.0-35.0) g/dl RDW 14.0 (11.0-16.0) % Plt Count 287 D (160-400) X10*3/uL MPV 9.6 (9.4-12.3) fL Immature Gran % (Auto) 0.3 (0.0-0.4) % Neut % (Auto) 57.0 (45-73) % Lymph % (Auto) 31.2 (20-40) % [place] % (Auto) 7.9 (2-11) % Eos % (Auto) 2.7 (0-4) % Baso % (Auto) 0.9 (0-2) % Lymph # (Auto) 2.1 (1.2-4.9) X10*3/uL [place] # (Auto) 0.5 (0.1-1.2) X10*3/uL Eos # (Auto) 0.2 (0.0-0.4) X10*3/uL Baso # (Auto) 0.1 (0.0-0.2) X10*3/uL Abs Immat Gran (auto) 0.02 (0.00-0.03) X10*3/uL Absolute Neuts (auto) 3.8 (2.0-8.3) x10*3/uL Absolute Nucleated RBC 0.000 (0.0-0.012) X10*3/uL Nucleated RBC % (auto) 0.0 (0.0-0.2) /100WBC Sodium 140 (135-145) mmol/L Potassium 4.8 (3.3-5.1) mmol/L Chloride 104 (96-108) mmol/L Carbon Dioxide 29 (22-29) mmol/L Anion Gap 12 (12-20) BUN 19 H D (9-16) mg/dL Creatinine 0.66 (0.5-1.4) mg/dL Estim Creat Clear Calc 113.4 Estimated GFR > 60 Random Glucose 102 (60-115) mg/dL Calcium 9.4 (8.4-10.2) mg/dL Troponin I High Sens < 3.5 (<3.5-17.0) ng/L Imaging Data right knee: Radiologist's impression: FINDINGS: There is loss of medial and patellofemoral compartment joint space with moderate periarticular spurring. No visible acute fracture, dislocation or subluxation seen. No bony erosive changes. No loose bodies. No abnormal joint effusion.? XR/XR knee RT 4V IMPRESSION: Moderate degenerative changes medial and patellofemoral compartment with periarticular spurring. No acute fracture or dislocation seen. ? Chest x-ray: Radiologist's impression: FINDINGS: No significant abnormality is noted involving the heart, lungs, mediastinum, bony thorax or soft tissues. XR/XR chest 2V IMPRESSION: Unremarkable chest exam. ECG Data Attestation: I personally reviewed and interpreted this ECG as follows: Interpretation: sinus rate of 75, no st or twave changes Discharge Plan Discharge Clinical Impression: Knee strain Patient Disposition: Home, Self-Care Instructions: Knee Sprain (ED), Crutch Instructions (ED) Prescriptions: New naproxen [Naprosyn] 500 mg tablet 500 mg PO BID Qty: 20 RF: 0 No Action olanzapine 10 mg Tablet 10 mg PO BID Qty: 60 RF: 0 benztropine 1 mg Tablet 1 mg PO BEDTIME Qty: 30 RF: 0 nicotine 21 mg/24 hr Patch 24 Hour 21 mg transdermal DAILY Qty: 30 RF: 0 Dermacerin Cream 1 appl topical TID Qty: 1 RF: 0 valacyclovir 1 gram Tablet 1,000 mg PO BID Qty: 60 RF: 0 prazosin 1 mg Capsule 2 mg PO BEDTIME Qty: 60 RF: 0 lithium carbonate 600 mg Capsule 600 mg PO BID Qty: 60 RF: 0 trazodone 150 mg Tablet 150 mg PO BEDTIME Qty: 30 RF: 0 omeprazole 20 mg Capsule,Delayed Release(Dr/Ec) 20 mg PO DAILY@0630 Qty: 30 RF: 0 albuterol sulfate 90 mcg/actuation HFA aerosol inhaler 2 puff inhalation QID PRN (Reason: wheezing) Qty: 1 RF: 0 sertraline 50 mg Tablet 50 mg PO DAILY Qty: 30 RF: 0 cholecalciferol (vitamin D3) 25 mcg (1,000 unit) Tablet 25 mcg PO DAILY Qty: 30 RF: 0 ferrous sulfate 324 mg (65 mg iron) Tablet,Delayed Release (Dr/Ec) 324 mg PO DAILY Qty: 30 RF: 0 fluticasone propion-salmeterol [AirDuo RespiClick] 232-14 mcg/actuation Aerosol Powdr Breath Activated 1 inh INHALATION BID Qty: 1 RF: 0 Referrals: Physician,None [Primary Care Provider] - 1 week
--- NOTE | 2021-09-16 11:35 | ECG_ITS ---
Test Reason : ?loc Blood Pressure : / mmHG Vent. Rate : 077 BPM Atrial Rate : 077 BPM P-R Int : 130 ms QRS Dur : 082 ms QT Int : 420 ms P-R-T Axes : 039 035 021 degrees QTc Int : 475 ms Normal sinus rhythm Normal ECG When compared with ECG of 07-SEP-2021 19:19, No significant change was found Referred By: Yoni Jacob Electronically Signed By:CHIKA SLAUGHTER MD
--- NOTE | 2021-09-16 11:42 | PC.NURSE ---
pt reports she was [place] the [place] and her right knee gave out resulting in a fall. pt has no memory of what happened after the fall but she states her friend witness fall and helped her up and gave her their cell phone to call ambulance. pt states she hurt her right knee, she rates her pain 6/10. she is unsure if she loss consciousness but she reports she fell forward but is unsure if she hit her head. she reports headache mostly in the front of her head. no dizziness. pt alert and oriented x4, vss.
[2021-09-16] MEDS: Ketorolac Tromethamine 15 MG/ML VIAL IVPUSH (12:11)
[2021-09-16 12:17] VITALS: BP 97/55; PULSE 71; RESP 20; O2SAT 93
[2021-09-16 12:28] LABS: Basophils Absolute Auto 0.1 X10*3/uL (0.0-0.2); Basophils Percent Auto 0.9 % (0-2); Eosinophils Absolute Auto 0.2 X10*3/uL (0.0-0.4); Eosinophils Percent Auto 2.7 % (0-4); Hematocrit 38.7 % (37.0-47.0); Hemoglobin 12.1 g/dl (12.0-16.0); Imm Gran Abs Auto 0.02 X10*3/uL (0.00-0.03); Imm Gran Pct Auto 0.3 % (0.0-0.4); Lymphocytes Absolute Auto 2.1 X10*3/uL (1.2-4.9); Lymphocytes Percent Auto 31.2 % (20-40); MANUAL DIFF FLAG NO; Mean Corpuscular HGB Conc 31.3 g/dl (31.0-35.0); Mean Corpuscular Hemoglobin 29.8 pg (27.0-33.0); Mean Corpuscular Volume 95.3 fL (80.0-98.0); Mean Platelet Volume 9.6 fL (9.4-12.3); Monocytes Absolute Auto 0.5 X10*3/uL (0.1-1.2); Monocytes Percent Auto 7.9 % (2-11); Neutrophils Absolute Auto 3.8 x10*3/uL (2.0-8.3); Platelet Count 287 X10*3/uL (160-400); Red Blood Count 4.06 X10*6/uL (4.20-5.50); White Blood Count 6.6 X10*3/uL (4.8-10.8)
[2021-09-16 12:47] LABS: Anion Gap 12 (12-20); Blood Urea Nitrogen 19 mg/dL (9-16); Calcium 9.4 mg/dL (8.4-10.2); Carbon Dioxide 29 mmol/L (22-29); Chloride 104 mmol/L (96-108); Creatinine Clr Calc Pharmacy 113.4; Estimated Glomerular Filt Rate > 60; Glucose Random 102 mg/dL (60-115); Potassium 4.8 mmol/L (3.3-5.1); Sodium 140 mmol/L (135-145)
[2021-09-16 12:49] LABS: Troponin-I High Sensitivity < 3.5 ng/L (<3.5-17.0)
--- NOTE | 2021-09-16 13:22 | PHA.MEDREC ---
Pharmacy Consult ? Medication Reconciliation Pharmacy has completed the medication reconciliation. Patient just discharged on 09/14/2021 (2 days ago) from . Patient has not picked up any prescritptions since discharge. Christianne Iglesias, PharmD
== END 2021-09-16 14:04 | disposition home or self-care (01) ==
PROVIDERS: Emergency Provider Emergency Medicine
DX: S86.911A Strain of unspecified muscle(s) and tendon(s) at lower leg level, right leg, initial encounter (principal); J44.9 Chronic obstructive pulmonary disease, unspecified; X58.XXXA Exposure to other specified factors, initial encounter; Y93.9 Activity, unspecified; Y92.410 Unspecified street and highway as the place of occurrence of the external cause; Y99.9 Unspecified external cause status
CPT/HCPCS: 36415; 71046; 73564; 80048; 84484; 85025; 93005; 96374; 99284; J1885

== ENCOUNTER 2021-09-18 13:01 | Emergency (ER) | payer MEDICAID, SELFPAY ==
--- NOTE | 2021-09-18 13:05 | ED_ITS ---
HPI - Psych General Chief Complaint: Psychiatric Symptoms Stated Complaint: crisis Time Seen by Provider: 09/18/21 13:05 Source: patient and EMS Mode of arrival: EMS Limitations: no limitations History of Present Illness MD complaint: suicidal ideation and feels depressed Onset (ago): day(s) (4) Duration: constant History of same: Yes Relieving factors: none Exacerbating factors: drug use Context: recent drug abuse Associated psychiatric symptoms: depression and suicidal ideation Associated symptoms: denies other symptoms Treatments prior to arrival: none Related Data Previous Rx's Medication Instructions Recorded albuterol sulfate 90 mcg/actuation 2 puff INHALATION QID PRN #1 g 09/14/21 aerosol inhaler benztropine 1 mg tablet 1 mg PO BEDTIME #30 tab 09/14/21 cholecalciferol (vitamin D3) 25 25 mcg PO DAILY #30 tab 09/14/21 mcg (1,000 unit) tablet ferrous sulfate 324 mg (65 mg 324 mg PO DAILY #30 tab 09/14/21 iron) tablet,delayed release fluticasone 232 mcg-salmeterol 14 1 inh INHALATION BID #1 ea 09/14/21 mcg/actuation breath activated powdr (AirDuo RespiClick) lithium carbonate 600 mg capsule 600 mg PO BID #60 cap 09/14/21 nicotine 21 mg/24 hr daily 21 mg TRANSDERMAL DAILY #30 ea 09/14/21 transdermal patch olanzapine 10 mg tablet 10 mg PO BID #60 tab 09/14/21 omeprazole 20 mg capsule,delayed 20 mg PO DAILY@0630 #30 cap 09/14/21 release prazosin 1 mg capsule 2 mg PO BEDTIME #60 cap 09/14/21 sertraline 50 mg tablet 50 mg PO DAILY #30 tab 09/14/21 trazodone 150 mg tablet 150 mg PO BEDTIME #30 tab 09/14/21 valacyclovir 1 gram tablet 1,000 mg PO BID #60 tab 09/14/21 white petrolatum-mineral oil 1 appl TOPICAL TID #1 g 09/14/21 topical cream (Dermacerin) naproxen 500 mg tablet (Naprosyn) 500 mg PO BID #20 tab 09/16/21 Allergies Allergy/AdvReac Type Severity Reaction Status Date / Time aspirin [Aspirin] Allergy Severe HIVES,THROAT Verified 06/05/21 21:34 SWELLS bee pollen [BEE STINGS] Allergy Severe ANAPHYLAXIS Verified 06/05/21 21:34 diphenhydramine Allergy Severe hives, Verified 06/05/21 21:34 [From BENADRYL ALLERGY] throat swells Penicillins [PCN] Allergy Severe HIVES Verified 06/05/21 21:34 THROAT SWELLS Sulfa (Sulfonamide Allergy Intermediate HIVES Verified 06/05/21 21:34 Antibiotics) [SULFA (SULFONAMIDE ANTIBIOTICS)] tramadol [TRAMADOL] Allergy Intermediate ITCHING Verified 06/05/21 21:34 latex [LATEX] Allergy Unknown UNKNOWN Verified 06/05/21 21:34 penicillin G Allergy Unknown Unknown Verified 06/05/21 21:34 levofloxacin [From Levaquin] Allergy Hives Verified 06/05/21 21:34 bee stings Allergy Unknown Unknown Uncoded 06/05/21 21:34 DairyCare Allergy Unknown Unknown Uncoded 06/05/21 21:34 sulfa drugs Allergy Unknown Unknown Uncoded 06/05/21 21:34 Review of Systems Review of Systems: Constitutional : No Fever, No Chills ENT/Mouth : No Ear Pain, No Nasal Congestion, No sore throat Eyes: No Eye Pain, No Swelling, No Redness Cardiovascular : No Chest Pain, No SOB Respiratory : No Cough, No Sputum, No Dyspnea Gastrointestinal : No Nausea, No Vomiting, No Diarrhea, No Hematochezia, No Melena Genitourinary : No Dysuria, No Urinary Frequency, No Hematuria Musculoskeletal : No Myalgias Skin : No Skin Lesions, No rash Neuro : No Weakness, No Numbness, No Paresthesias, No Dizziness, No Headache Psych : positive Anxiety, positive Depression, positive SI no HI Heme/Lymph: No Lymphadenopathy Endocrine : No Polyuria, No Polydipsia All other systems reviewed and are negative PMFSH Past Medical History Medical History Asthma exacerbation in COPD Bipolar disorder Bipolar I disorder Borderline personality disorder Borderline personality disorder COPD (chronic obstructive pulmonary disease) Depression Drug abuse Herpes Intermittent explosive disorder FABIOLA (obstructive sleep apnea) Post traumatic stress disorder (PTSD) PTSD (post-traumatic stress disorder) PTSD (post-traumatic stress disorder) Tobacco use Surgical History History of ankle surgery History of appendectomy History of back surgery Hx of cholecystectomy Family History Family History Mother COPD (chronic obstructive pulmonary disease) Social History Social History Household Members: None Household Members Other:: Pt states she hangs out with a male friend and a female friend Housing: Apartment Housing Other:: will be getting apartment 07/01 Do you presently have visiting nurse or other home services: No Unable to assess alcohol history related to: Unknown Alcohol intake: never Patient Tobacco Use Status: Current everyday Tobacco user Tobacco use type: Cigarette Cigarette Packs Per Day: 0.5 Cigarettes Per Day: 10.0 Years Smoked: 17 e-Cigarette/Vaping Use: Never Used Second Hand Smoke Exposure: Yes Substance Use Type: Crack/Cocaine Advance Directives: Yes Advance Directives on File: Yes Advance Directives Date on File: 12/24/20 Patient : No service: No Current occupational status: unemployed and disabled Sexual orientation: Did not discuss Physical Exam Vital Signs: Vital Signs: Last Vital Signs Temp 98.4 F 09/18/21 13:42 Pulse 88 09/18/21 13:42 Resp 18 09/18/21 13:42 BP 150/75 H 09/18/21 13:42 Pulse Ox 95 09/18/21 13:42 Body Mass Index 37.0 Appearance: Alert. Oriented X3. No acute distress. Eyes: Pupils equal, round and reactive to light. ENT: Pharynx normal. Neck: Normal inspection. Neck supple. CVS: Normal heart rate and rhythm. Pulses normal. Respiratory: No respiratory distress. Breath sounds normal. Abdomen: Soft and nontender. Skin: Skin warm and dry. Normal skin color. Normal skin turgor. Extremities: No lower extremity edema. No calf ttp Neuro: Oriented X 3. No motor deficit. No sensory deficit. CN2-12 intact Psych: pos SI, pos depressed Course Course Course Narrative: Physician observation started at 214pm Patient placed in [facility] sician observation because the patient needed more time for [facility] to evaluate her to assess the need for inpatient psychiatry. At the time observation was started the patient's vitals were stable, patient is alert and oriented but slightly anxious, Neuro: nonfocal, CV RRR, Lungs clear MDM - Psych MDM Narrative Medical decision making narrative: 51 yo female with hx of asthma, PTSD, substance abuse comes in with c/o SI and did relapse - will need labs, N consult Lab Data Result diagrams: 09/18/21 13:43 Labs: Lab Results 09/18/21 09/18/21 09/18/21 Range/Units 13:43 13:43 13:43 Sodium 140 (135-145) mmol/L Potassium 4.3 (3.3-5.1) mmol/L Chloride 104 (96-108) mmol/L Carbon Dioxide 28 (22-29) mmol/L Anion Gap 12 (12-20) BUN 11 (9-16) mg/dL Creatinine 0.69 (0.5-1.4) mg/dL Estim Creat Clear Calc 102.9 Estimated GFR > 60 Random Glucose 127 H (60-115) mg/dL Calcium 9.4 (8.4-10.2) mg/dL Total Bilirubin 0.5 (0.0-1.0) mg/dL Direct Bilirubin 0.2 (0.0-0.5) mg/dL AST 19 (5-31) U/L ALT 38 H (0-31) U/L Alkaline Phosphatase 95 (39-117) U/L Total Protein 6.9 (6.5-8.0) g/dL Albumin 4.4 (3.5-5.0) g/dL Urine Opiates Screen (Not Detect) Urine Fentanyl Screen (Not Detect) Ur Barbiturates Screen (Not Detect) Ur Phencyclidine Scrn (Not Detect) Ur Amphetamines Screen (Not Detect) U Benzodiazepines Scrn (Not Detect) [place] 0.50 L (0.60-1.20) mmol/L Urine Cocaine Screen (Not Detect) U Marijuana (THC) Screen (Not Detect) COVID-19 (ENDY) Negative (Negative) COVID-19 Clin Com See Note 09/18/21 Range/Units 13:43 Sodium (135-145) mmol/L Potassium (3.3-5.1) mmol/L Chloride (96-108) mmol/L Carbon Dioxide (22-29) mmol/L Anion Gap (12-20) BUN (9-16) mg/dL Creatinine (0.5-1.4) mg/dL Estim Creat Clear Calc Estimated GFR Random Glucose (60-115) mg/dL Calcium (8.4-10.2) mg/dL Total Bilirubin (0.0-1.0) mg/dL Direct Bilirubin (0.0-0.5) mg/dL AST (5-31) U/L ALT (0-31) U/L Alkaline Phosphatase (39-117) U/L Total Protein (6.5-8.0) g/dL Albumin (3.5-5.0) g/dL Urine Opiates Screen Not Detected (Not Detect) Urine Fentanyl Screen Not Detected (Not Detect) Ur Barbiturates Screen Not Detected (Not Detect) Ur Phencyclidine Scrn Not Detected (Not Detect) Ur Amphetamines Screen Not Detected (Not Detect) U Benzodiazepines Scrn Not Detected (Not Detect) [place] (0.60-1.20) mmol/L Urine Cocaine Screen POSITIVE H (Not Detect) U Marijuana (THC) Screen Not Detected (Not Detect) COVID-19 (ENDY) (Negative) COVID-19 Clin Com Discharge Plan Discharge Clinical Impression: PTSD (post-traumatic stress disorder) Prescriptions: No Action olanzapine 10 mg Tablet 10 mg PO BID Qty: 60 RF: 0 benztropine 1 mg Tablet 1 mg PO BEDTIME Qty: 30 RF: 0 nicotine 21 mg/24 hr Patch 24 Hour 21 mg transdermal DAILY Qty: 30 RF: 0 Dermacerin Cream 1 appl topical TID Qty: 1 RF: 0 valacyclovir 1 gram Tablet 1,000 mg PO BID Qty: 60 RF: 0 prazosin 1 mg Capsule 2 mg PO BEDTIME Qty: 60 RF: 0 lithium carbonate 600 mg Capsule 600 mg PO BID Qty: 60 RF: 0 trazodone 150 mg Tablet 150 mg PO BEDTIME Qty: 30 RF: 0 omeprazole 20 mg Capsule,Delayed Release(Dr/Ec) 20 mg PO DAILY@0630 Qty: 30 RF: 0 albuterol sulfate 90 mcg/actuation HFA aerosol inhaler 2 puff inhalation QID PRN (Reason: wheezing) Qty: 1 RF: 0 sertraline 50 mg Tablet 50 mg PO DAILY Qty: 30 RF: 0 cholecalciferol (vitamin D3) 25 mcg (1,000 unit) Tablet 25 mcg PO DAILY Qty: 30 RF: 0 ferrous sulfate 324 mg (65 mg iron) Tablet,Delayed Release (Dr/Ec) 324 mg PO DAILY Qty: 30 RF: 0 fluticasone propion-salmeterol [AirDuo RespiClick] 232-14 mcg/actuation Aerosol Powdr Breath Activated 1 inh INHALATION BID Qty: 1 RF: 0 naproxen [Naprosyn] 500 mg tablet 500 mg PO BID Qty: 20 RF: 0
--- NOTE | 2021-09-18 13:17 | PHA.MEDREC ---
Pharmacy Consult ? Medication Reconciliation Pharmacy has completed the medication reconciliation. Med rec completed by mt 09/16/2021. Patient discharge for M5 on 09/14/2021. Christianne Iglesias, DelfinoD
[2021-09-18 13:23] VITALS: BP 161/77; PULSE 82; RESP 18; TEMP 36.9; O2SAT 94
[2021-09-18 13:42] VITALS: BP 150/75; BP 150/80; PULSE 80; PULSE 88; RESP 18; TEMP 36.9; O2SAT 95; BMI 37.0
[2021-09-18 14:07] LABS: COVID-19 Test Negative (Negative); IDNOW Serial# 9DD0AD1C
[2021-09-18 14:09] LABS: Amphetamine Screen Urine Not Detected (Not Detect); Barbiturates, Urine Not Detected (Not Detect); Benzodiazepines Screen Urine Not Detected (Not Detect); Cannabinoid Screen Urine Not Detected (Not Detect); Cocaine Screen Urine POSITIVE (Not Detect); Fentanyl, urine Not Detected (Not Detect); Opiate Screen Urine Not Detected (Not Detect); Phencyclidine Screen Urine Not Detected (Not Detect)
[2021-09-18 14:10] LABS: Alanine Aminotransferase 38 U/L (0-31); Albumin Level 4.4 g/dL (3.5-5.0); Alkaline Phosphatase 95 U/L (39-117); Anion Gap 12 (12-20); Aspartate Amino Transferase 19 U/L (5-31); Bilirubin Direct 0.2 mg/dL (0.0-0.5); Bilirubin Total 0.5 mg/dL (0.0-1.0); Blood Urea Nitrogen 11 mg/dL (9-16); Calcium 9.4 mg/dL (8.4-10.2); Carbon Dioxide 28 mmol/L (22-29); Chloride 104 mmol/L (96-108); Creatinine Clr Calc Pharmacy 102.9; Estimated Glomerular Filt Rate > 60; Glucose Random 127 mg/dL (60-115); Potassium 4.3 mmol/L (3.3-5.1); Sodium 140 mmol/L (135-145); Total Protein 6.9 g/dL (6.5-8.0)
--- NOTE | 2021-09-18 14:39 | PC.NURSE ---
phlebotomy was called to draw this patient as two techs were unsuccessful
[2021-09-18 15:20] LABS: MANUAL DIFF FLAG NO
[2021-09-18 15:21] LABS: Basophils Absolute Auto 0.1 X10*3/uL (0.0-0.2); Basophils Percent Auto 0.7 % (0-2); Eosinophils Absolute Auto 0.1 X10*3/uL (0.0-0.4); Eosinophils Percent Auto 1.8 % (0-4); Hematocrit 36.6 % (37.0-47.0); Hemoglobin 11.7 g/dl (12.0-16.0); Imm Gran Abs Auto 0.03 X10*3/uL (0.00-0.03); Imm Gran Pct Auto 0.4 % (0.0-0.4); Lymphocytes Absolute Auto 2.4 X10*3/uL (1.2-4.9); Lymphocytes Percent Auto 33.3 % (20-40); Mean Corpuscular Hemoglobin 30.2 pg (27.0-33.0); Mean Corpuscular Volume 94.3 fL (80.0-98.0); Mean Platelet Volume 9.7 fL (9.4-12.3); Monocytes Absolute Auto 0.5 X10*3/uL (0.1-1.2); Monocytes Percent Auto 6.9 % (2-11); Neutrophils Absolute Auto 4.1 x10*3/uL (2.0-8.3); Neutrophils Percent Auto 56.9 % (45-73); Platelet Count 272 X10*3/uL (160-400); Red Blood Count 3.88 X10*6/uL (4.20-5.50); Red Cell Distribution Width 13.6 % (11.0-16.0); White Blood Count 7.2 X10*3/uL (4.8-10.8)
--- NOTE | 2021-09-18 17:24 | PC.NURSE ---
care teamwith patient. pt has been calm and ambulatory.
[2021-09-18 18:18] VITALS: BP 95/50; PULSE 78; TEMP 36.8; O2SAT 95
[2021-09-18] MEDS: Nicotine 21 MG PATCH.TD24 TRANSDERMA (18:18)
== END 2021-09-18 18:49 | disposition home or self-care (01) ==
PROVIDERS: Emergency Provider Emergency Medicine
DX: F43.10 Post-traumatic stress disorder, unspecified (principal); R45.851 Suicidal ideations; F32.A Depression, unspecified; F31.9 Bipolar disorder, unspecified; F60.3 Borderline personality disorder; F63.81 Intermittent explosive disorder; F41.9 Anxiety disorder, unspecified; F14.10 Cocaine abuse, uncomplicated; F17.200 Nicotine dependence, unspecified, uncomplicated; Z59.00 Homelessness unspecified; Z20.822 Contact with and (suspected) exposure to COVID-19; Z79.899 Other long term (current) drug therapy
CPT/HCPCS: 36415; 80048; 80076; 80178; 80307; 85025; 87635; 99284

== ENCOUNTER 2021-10-01 08:52 | Emergency (ER) | payer MEDICAID, SELFPAY ==
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
[2021-10-01 09:38] VITALS: BP 119/79; BP 122/80; PULSE 79; PULSE 80; RESP 18; TEMP 36.6; O2SAT 95; O2SAT 98; BMI 33.3
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
[2021-10-01] MEDS: oxyCODONE HCl Immed Release 5 MG TABLET PO (09:48)
[2021-10-01] MEDS: Ondansetron ODT 4 MG TAB.RAPDIS TRANSLINGU (09:48)
[2021-10-01 11:12] VITALS: BP 121/79; PULSE 75; RESP 18; TEMP 36.6; O2SAT 94
== END 2021-10-01 11:38 | disposition home or self-care (01) ==
PROVIDERS: Emergency Provider Emergency Medicine
DX: S09.90XA Unspecified injury of head, initial encounter (principal); Y00.XXXA Assault by blunt object, initial encounter; F17.200 Nicotine dependence, unspecified, uncomplicated; Y93.9 Activity, unspecified; Y92.9 Unspecified place or not applicable; Y99.9 Unspecified external cause status
CPT/HCPCS: 70450; 99284

== ENCOUNTER 2021-10-02 10:37 | Emergency (ER) | payer MEDICAID, SELFPAY ==
[2021-10-02 12:08] VITALS: BP 113/76; PULSE 75; RESP 18; TEMP 36.8; O2SAT 95; BMI 33.6
== END 2021-10-02 17:01 | disposition left against medical advice (07) ==
PROVIDERS: Emergency Provider Emergency Medicine
DX: R51.9 Headache, unspecified (principal)
CPT/HCPCS: 99281; 99282

== ENCOUNTER 2021-10-03 18:03 | Inpatient (IN) | payer MEDICAID, OTHER, SELFPAY ==
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
--- NOTE | 2021-10-03 18:15 | ED_ITS ---
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 (Auto) 50.2 (45-73) % Lymph % (Auto) 41.5 H (20-40) % [place] % (Auto) 5.9 (2-11) % Eos % (Auto) 1.3 (0-4) % Baso % (Auto) 0.9 (0-2) % Lymph # (Auto) 2.3 (1.2-4.9) X10*3/uL [place] # (Auto) 0.3 (0.1-1.2) X10*3/uL Eos # (Auto) 0.1 (0.0-0.4) X10*3/uL Baso # (Auto) 0.1 (0.0-0.2) X10*3/uL Abs Immat Gran (auto) 0.01 (0.00-0.03) X10*3/uL Absolute Neuts (auto) 2.8 (2.0-8.3) x10*3/uL Absolute Nucleated RBC 0.000 (0.0-0.012) X10*3/uL Nucleated RBC % (auto) 0.0 (0.0-0.2) /100WBC Sodium 141 (135-145) mmol/L Potassium 4.3 (3.3-5.1) mmol/L Chloride 102 (96-108) mmol/L Carbon Dioxide 30 H (22-29) mmol/L Anion Gap 13 (12-20) BUN 15 (9-16) mg/dL Creatinine 0.84 (0.5-1.4) mg/dL Estim Creat Clear Calc 101.7 Estimated GFR > 60 Random Glucose 111 (60-115) mg/dL Calcium 10.0 D (8.4-10.2) mg/dL Total Bilirubin 0.3 (0.0-1.0) mg/dL AST 14 (5-31) U/L ALT 12 (0-31) U/L Alkaline Phosphatase 76 (39-117) U/L Total Protein 6.4 L (6.5-8.0) g/dL Albumin 4.2 (3.5-5.0) g/dL Urine Color Urine Appearance Urine pH (5.0-8.0) Ur Specific [place] (1.005-1.025) Urine Protein (NEG-TRACE) MG/DL Urine Glucose (UA) (NEG) MG/DL Urine Ketones (NEG) MG/DL Urine Blood (NEG) Urine Nitrite (NEG) Ur Leukocyte Esterase (NEG) Urine RBC (0) /HPF Urine WBC (0-4) /HPF Ur Squamous Epith Cells /LPF Urine Bacteria /LPF Urine Opiates Screen (Not Detect) Urine Fentanyl Screen (Not Detect) Ur Barbiturates Screen (Not Detect) Ur Phencyclidine Scrn (Not Detect) Ur Amphetamines Screen (Not Detect) U Benzodiazepines Scrn (Not Detect) [place] (0.60-1.20) mmol/L Urine Cocaine Screen (Not Detect) U Marijuana (THC) Screen (Not Detect) Ethyl Alcohol mg/dL COVID-19 (ENDY) Negative (Negative) COVID-19 Clin Com See Note 10/03/21 10/03/21 10/03/21 Range/Units 19:50 19:50 21:11 WBC (4.8-10.8) X10*3/uL RBC (4.20-5.50) X10*6/uL Hgb (12.0-16.0) g/dl Hct (37.0-47.0) % MCV (80.0-98.0) fL MCH (27.0-33.0) pg MCHC (31.0-35.0) g/dl RDW (11.0-16.0) % Plt Count (160-400) X10*3/uL MPV (9.4-12.3) fL Immature Gran % (Auto) (0.0-0.4) % Neut % (Auto) (45-73) % Lymph % (Auto) (20-40) % [place] % (Auto) (2-11) % Eos % (Auto) (0-4) % Baso % (Auto) (0-2) % Lymph # (Auto) (1.2-4.9) X10*3/uL [place] # (Auto) (0.1-1.2) X10*3/uL Eos # (Auto) (0.0-0.4) X10*3/uL Baso # (Auto) (0.0-0.2) X10*3/uL Abs Immat Gran (auto) (0.00-0.03) X10*3/uL Absolute Neuts (auto) (2.0-8.3) x10*3/uL Absolute Nucleated RBC (0.0-0.012) X10*3/uL Nucleated RBC % (auto) (0.0-0.2) /100WBC Sodium (135-145) mmol/L Potassium (3.3-5.1) mmol/L Chloride (96-108) mmol/L Carbon Dioxide (22-29) mmol/L Anion Gap (12-20) BUN (9-16) mg/dL Creatinine (0.5-1.4) mg/dL Estim Creat Clear Calc Estimated GFR Random Glucose (60-115) mg/dL Calcium (8.4-10.2) mg/dL Total Bilirubin (0.0-1.0) mg/dL AST (5-31) U/L ALT (0-31) U/L Alkaline Phosphatase (39-117) U/L Total Protein (6.5-8.0) g/dL Albumin (3.5-5.0) g/dL Urine Color Urine Appearance Urine pH (5.0-8.0) Ur Specific [place] (1.005-1.025) Urine Protein (NEG-TRACE) MG/DL Urine Glucose (UA) (NEG) MG/DL Urine Ketones (NEG) MG/DL Urine Blood (NEG) Urine Nitrite (NEG) Ur Leukocyte Esterase (NEG) Urine RBC (0) /HPF Urine WBC (0-4) /HPF Ur Squamous Epith Cells /LPF Urine Bacteria /LPF Urine Opiates Screen Not Detected (Not Detect) Urine Fentanyl Screen Not Detected (Not Detect) Ur Barbiturates Screen Not Detected (Not Detect) Ur Phencyclidine Scrn Not Detected (Not Detect) Ur Amphetamines Screen Not Detected (Not Detect) U Benzodiazepines Scrn Not Detected (Not Detect) [place] < 0.10 L (0.60-1.20) mmol/L Urine Cocaine Screen Not Detected (Not Detect) U Marijuana (THC) Screen Not Detected (Not Detect) Ethyl Alcohol < 10 mg/dL COVID-19 (ENDY) (Negative) COVID-19 Clin Com 10/03/21 Range/Units 21:11 WBC (4.8-10.8) X10*3/uL RBC (4.20-5.50) X10*6/uL Hgb (12.0-16.0) g/dl Hct (37.0-47.0) % MCV (80.0-98.0) fL MCH (27.0-33.0) pg MCHC (31.0-35.0) g/dl RDW (11.0-16.0) % Plt Count (160-400) X10*3/uL MPV (9.4-12.3) fL Immature Gran % (Auto) (0.0-0.4) % Neut % (Auto) (45-73) % Lymph % (Auto) (20-40) % [place] % (Auto) (2-11) % Eos % (Auto) (0-4) % Baso % (Auto) (0-2) % Lymph # (Auto) (1.2-4.9) X10*3/uL [place] # (Auto) (0.1-1.2) X10*3/uL Eos # (Auto) (0.0-0.4) X10*3/uL Baso # (Auto) (0.0-0.2) X10*3/uL Abs Immat Gran (auto) (0.00-0.03) X10*3/uL Absolute Neuts (auto) (2.0-8.3) x10*3/uL Absolute Nucleated RBC (0.0-0.012) X10*3/uL Nucleated RBC % (auto) (0.0-0.2) /100WBC Sodium (135-145) mmol/L Potassium (3.3-5.1) mmol/L Chloride (96-108) mmol/L Carbon Dioxide (22-29) mmol/L Anion Gap (12-20) BUN (9-16) mg/dL Creatinine (0.5-1.4) mg/dL Estim Creat Clear Calc Estimated GFR Random Glucose (60-115) mg/dL Calcium (8.4-10.2) mg/dL Total Bilirubin (0.0-1.0) mg/dL AST (5-31) U/L ALT (0-31) U/L Alkaline Phosphatase (39-117) U/L Total Protein (6.5-8.0) g/dL Albumin (3.5-5.0) g/dL Urine Color YELLOW Urine Appearance CLEAR Urine pH 6.0 (5.0-8.0) Ur Specific [place] 1.015 (1.005-1.025) Urine Protein NEG (NEG-TRACE) MG/DL Urine Glucose (UA) NEG (NEG) MG/DL Urine Ketones NEG (NEG) MG/DL Urine Blood NEG (NEG) Urine Nitrite NEG (NEG) Ur Leukocyte Esterase 2+ H (NEG) Urine RBC 1-4 (0) /HPF Urine WBC 15-29 H (0-4) /HPF Ur Squamous Epith Cells 1+ /LPF Urine Bacteria 1+ /LPF Urine Opiates Screen (Not Detect) Urine Fentanyl Screen (Not Detect) Ur Barbiturates Screen (Not Detect) Ur Phencyclidine Scrn (Not Detect) Ur Amphetamines Screen (Not Detect) U Benzodiazepines Scrn (Not Detect) [place] (0.60-1.20) mmol/L Urine Cocaine Screen (Not Detect) U Marijuana (THC) Screen (Not Detect) Ethyl Alcohol mg/dL COVID-19 (ENDY) (Negative) COVID-19 Clin Com <LASHONDA Holt - Last Filed: 10/04/21 08:26> Critical Care Time Critical Care Time Critical Care Time: No <LASHONDA Coppola - Last Filed: 10/03/21 21:18> Discharge Plan Discharge Clinical Impression: Suicidal ideation, Parotid mass Headache Qualifiers: Headache type: unspecified Headache chronicity pattern: unspecified pattern Intractability: not intractable Qualified Code(s): R51.9 - Headache, unspecified Nausea & vomiting Qualifiers: Vomiting type: unspecified Qualified Code(s): R11.2 - Nausea with vomiting, unspecified <LASHONDA Coppola - Last Filed: 10/03/21 21:18> Patient Disposition: Still a Patient <LASHONDA Coppola - Last Filed: 10/03/21 21:18> Prescriptions: No Action olanzapine 10 mg Tablet 10 mg PO BID Qty: 60 RF: 0 benztropine 1 mg Tablet 1 mg PO BEDTIME Qty: 30 RF: 0 nicotine 21 mg/24 hr Patch 24 Hour 21 mg transdermal DAILY Qty: 30 RF: 0 Dermacerin Cream 1 appl topical TID Qty: 1 RF: 0 valacyclovir 1 gram Tablet 1,000 mg PO BID Qty: 60 RF: 0 prazosin 1 mg Capsule 2 mg PO BEDTIME Qty: 60 RF: 0 lithium carbonate 600 mg Capsule 600 mg PO BID Qty: 60 RF: 0 trazodone 150 mg Tablet 150 mg PO BEDTIME Qty: 30 RF: 0 omeprazole 20 mg Capsule,Delayed Release(Dr/Ec) 20 mg PO DAILY@0630 Qty: 30 RF: 0 albuterol sulfate 90 mcg/actuation HFA aerosol inhaler 2 puff inhalation QID PRN (Reason: wheezing) Qty: 1 RF: 0 sertraline 50 mg Tablet 50 mg PO DAILY Qty: 30 RF: 0 cholecalciferol (vitamin D3) 25 mcg (1,000 unit) Tablet 25 mcg PO DAILY Qty: 30 RF: 0 ferrous sulfate 324 mg (65 mg iron) Tablet,Delayed Release (Dr/Ec) 324 mg PO DAILY Qty: 30 RF: 0 fluticasone propion-salmeterol [AirDuo RespiClick] 232-14 mcg/actuation Aerosol Powdr Breath Activated 1 inh INHALATION BID Qty: 1 RF: 0 <LASHONDA Coppola - Last Filed: 10/03/21 21:18>
[2021-10-03 18:34] VITALS: BP 131/60; PULSE 105; RESP 16; TEMP 36.9; O2SAT 96; BMI 57.2
[2021-10-03] MEDS: Ondansetron ODT 4 MG TAB.RAPDIS TRANSLINGU (18:59)
[2021-10-03 19:57] LABS: MANUAL DIFF FLAG NO
[2021-10-03 20:01] LABS: Basophils Absolute Auto 0.1 X10*3/uL (0.0-0.2); Basophils Percent Auto 0.9 % (0-2); Eosinophils Absolute Auto 0.1 X10*3/uL (0.0-0.4); Eosinophils Percent Auto 1.3 % (0-4); Hematocrit 39.5 % (37.0-47.0); Hemoglobin 12.9 g/dl (12.0-16.0); Imm Gran Abs Auto 0.01 X10*3/uL (0.00-0.03); Imm Gran Pct Auto 0.2 % (0.0-0.4); Lymphocytes Absolute Auto 2.3 X10*3/uL (1.2-4.9); Lymphocytes Percent Auto 41.5 % (20-40); Mean Corpuscular HGB Conc 32.7 g/dl (31.0-35.0); Mean Corpuscular Hemoglobin 30.9 pg (27.0-33.0); Mean Corpuscular Volume 94.7 fL (80.0-98.0); Monocytes Absolute Auto 0.3 X10*3/uL (0.1-1.2); Monocytes Percent Auto 5.9 % (2-11); Neutrophils Absolute Auto 2.8 x10*3/uL (2.0-8.3); Neutrophils Percent Auto 50.2 % (45-73); Platelet Count 252 X10*3/uL (160-400); Red Blood Count 4.17 X10*6/uL (4.20-5.50); Red Cell Distribution Width 13.1 % (11.0-16.0); White Blood Count 5.6 X10*3/uL (4.8-10.8)
[2021-10-03 20:01] LABS: COVID-19 Test Negative (Negative); IDNOW Serial# 9DD0AD1C
[2021-10-03 20:16] LABS: Ethanol < 10 mg/dL
[2021-10-03 20:18] LABS: Alanine Aminotransferase 12 U/L (0-31); Albumin Level 4.2 g/dL (3.5-5.0); Alkaline Phosphatase 76 U/L (39-117); Anion Gap 13 (12-20); Aspartate Amino Transferase 14 U/L (5-31); Bilirubin Total 0.3 mg/dL (0.0-1.0); Blood Urea Nitrogen 15 mg/dL (9-16); Carbon Dioxide 30 mmol/L (22-29); Chloride 102 mmol/L (96-108); Creatinine Clr Calc Pharmacy 101.7; Estimated Glomerular Filt Rate > 60; Glucose Random 111 mg/dL (60-115); Potassium 4.3 mmol/L (3.3-5.1); Sodium 141 mmol/L (135-145); Total Protein 6.4 g/dL (6.5-8.0)
[2021-10-03 20:28] LABS: Lithium < 0.10 mmol/L (0.60-1.20)
[2021-10-03 20:47] VITALS: BP 107/68; PULSE 86
[2021-10-03] MEDS: Lithium Carbonate 300 MG CAPSULE 600 MG PO (20:47)
[2021-10-03] MEDS: Prazosin HCL 1 MG CAPSULE 2 MG PO (20:47)
[2021-10-03] MEDS: OLANZapine 10 MG TABLET PO (20:47)
[2021-10-03] MEDS: Benztropine Mesylate 1 MG TABLET PO (20:47)
[2021-10-03 21:23] LABS: Appearance Urine CLEAR; Color Urine YELLOW; Glucose Urine UA NEG (NEG); Leukocyte Esterase Urine 2+ (NEG); Nitrite Urine NEG (NEG); Specific Gravity - Urine 1.015 (1.005-1.025); UACC Culture Trigger YES; Urine Blood NEG (NEG); Urine Ketones NEG (NEG); Urine Protein NEG (NEG-TRACE)
[2021-10-03 21:46] LABS: Bacteria Urine 1+ /LPF; Squamous Epithelial Cell Urine 1+ /LPF; UACC CULT YES
[2021-10-03 21:47] LABS: Amphetamine Screen Urine Not Detected (Not Detect); Barbiturates, Urine Not Detected (Not Detect); Benzodiazepines Screen Urine Not Detected (Not Detect); Cannabinoid Screen Urine Not Detected (Not Detect); Cocaine Screen Urine Not Detected (Not Detect); Fentanyl, urine Not Detected (Not Detect); Opiate Screen Urine Not Detected (Not Detect); Phencyclidine Screen Urine Not Detected (Not Detect)
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
--- NOTE | 2021-10-04 | ECG_ITS ---
Test Reason : MED CLEARANCE Blood Pressure : / mmHG Vent. Rate : 080 BPM Atrial Rate : 080 BPM P-R Int : 136 ms QRS Dur : 082 ms QT Int : 384 ms P-R-T Axes : -09 044 031 degrees QTc Int : 442 ms Normal sinus rhythm Normal ECG When compared with ECG of 16-SEP-2021 11:43, No significant change was found Referred By: Kamla Marroquin Electronically Signed By:Deangelo Gutierres
--- NOTE | 2021-10-04 06:27 | PC.NURSE ---
Patient slept though the night, no distress observed/reported, medication compliant, behavior appropriate, patient will be assessed by care team in the morning, VSS, will continue to monitor.
[2021-10-04 06:48] VITALS: BP 115/67; PULSE 70; RESP 18; TEMP 36.9; O2SAT 94
--- NOTE | 2021-10-04 06:54 | PC.NURSE ---
patient appears to remain at rest at present, respirations are even and unlabored, patient appears in no distress
[2021-10-04] MEDS: Lithium Carbonate 300 MG CAPSULE 600 MG PO ×2 (09:33→20:58)
[2021-10-04] MEDS: Nicotine 21 MG PATCH.TD24 TRANSDERMA (09:33)
[2021-10-04] MEDS: Cholecalciferol (Vitamin D3) 25 MCG TABLET PO (09:33)
[2021-10-04] MEDS: Omeprazole 20 MG CAPSULE.DR PO (09:34)
[2021-10-04] MEDS: OLANZapine 10 MG TABLET PO ×2 (09:34→21:00)
[2021-10-04] MEDS: Ferrous Sulfate 324 MG TABLET.DR PO (09:34)
[2021-10-04] MEDS: Sertraline HCL 50 MG TABLET PO (09:34)
[2021-10-04 19:20] VITALS: BP 89/58; PULSE 99; RESP 20; TEMP 36.8; O2SAT 94
[2021-10-04] MEDS: Albuterol Sulfate 90 MCG 8 GM INHALER 2 PUFF INHALE (19:25)
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
[2021-10-04 20:59] VITALS: BP 89/58; PULSE 99
[2021-10-04] MEDS: Prazosin HCL 1 MG CAPSULE 2 MG PO (20:59)
[2021-10-04] MEDS: Acetaminophen 325 MG TABLET 650 MG PO (20:59)
[2021-10-04] MEDS: Ibuprofen 600 MG TABLET PO (21:00)
[2021-10-04] MEDS: Benztropine Mesylate 1 MG TABLET PO (21:00)
[2021-10-05 06:00] VITALS: BP 119/69; PULSE 86; RESP 18; TEMP 36.7; O2SAT 94
[2021-10-05] MEDS: Ibuprofen 600 MG TABLET PO ×2 (06:33→22:15)
[2021-10-05] MEDS: Omeprazole 20 MG CAPSULE.DR PO (06:33)
[2021-10-05] MEDS: Lithium Carbonate 300 MG CAPSULE 600 MG PO ×2 (08:37→22:17)
[2021-10-05] MEDS: Ferrous Sulfate 324 MG TABLET.DR PO (08:37)
[2021-10-05] MEDS: OLANZapine 10 MG TABLET PO ×2 (08:37→22:18)
[2021-10-05] MEDS: Cholecalciferol (Vitamin D3) 25 MCG TABLET PO (08:37)
[2021-10-05] MEDS: Nicotine 21 MG PATCH.TD24 TRANSDERMA (08:37)
[2021-10-05] MEDS: Sertraline HCL 50 MG TABLET PO (08:37)
[2021-10-05] MEDS: Gabapentin 100 MG CAPSULE 200 MG PO ×2 (14:59→22:18)
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
[2021-10-05 22:00] VITALS: BP 128/80; PULSE 90; TEMP 36.8
[2021-10-05] MEDS: Benztropine Mesylate 1 MG TABLET PO (22:14)
[2021-10-05 22:19] VITALS: BP 128/80; PULSE 90
[2021-10-05] MEDS: Prazosin HCL 1 MG CAPSULE 2 MG PO (22:19)
[2021-10-06 06:00] VITALS: BP 119/57; PULSE 72; RESP 18; TEMP 36.6; O2SAT 97
[2021-10-06] MEDS: Ibuprofen 600 MG TABLET PO (06:33)
[2021-10-06] MEDS: Omeprazole 20 MG CAPSULE.DR PO (06:33)
[2021-10-06] MEDS: Lithium Carbonate 300 MG CAPSULE 600 MG PO ×2 (08:53→20:19)
[2021-10-06] MEDS: Gabapentin 100 MG CAPSULE 200 MG PO ×3 (08:53→20:18)
[2021-10-06] MEDS: Fluticasone/Vilanterol 100/25 BLST.W.DEV 1 PUFF INHALE (08:53)
[2021-10-06] MEDS: Sertraline HCL 50 MG TABLET PO (08:54)
[2021-10-06] MEDS: Ferrous Sulfate 324 MG TABLET.DR PO (08:54)
[2021-10-06] MEDS: OLANZapine 10 MG TABLET PO ×2 (08:54→20:18)
[2021-10-06] MEDS: Cholecalciferol (Vitamin D3) 25 MCG TABLET PO (08:54)
[2021-10-06] MEDS: Nicotine 21 MG PATCH.TD24 TRANSDERMA (08:59)
[2021-10-06] MEDS: Acetaminophen 325 MG TABLET 650 MG PO ×2 (15:04→20:22)
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
[2021-10-06 17:49] VITALS: BP 122/62; PULSE 80; RESP 18; TEMP 36.5; O2SAT 95
--- NOTE | 2021-10-06 18:36 | PC.NURSE ---
Pt already had a flu shot this season
[2021-10-06 20:18] VITALS: BP 122/62; PULSE 80
[2021-10-06] MEDS: Prazosin HCL 1 MG CAPSULE 2 MG PO (20:18)
[2021-10-06] MEDS: Benztropine Mesylate 1 MG TABLET PO (20:19)
[2021-10-06 23:45] VITALS: PULSE 81; O2SAT 92
[2021-10-07] MEDS: Ferrous Sulfate 324 MG TABLET.DR PO (08:34)
[2021-10-07] MEDS: OLANZapine 10 MG TABLET PO (08:34)
[2021-10-07] MEDS: Gabapentin 100 MG CAPSULE 200 MG PO ×3 (08:34→20:52)
[2021-10-07] MEDS: Lithium Carbonate 300 MG CAPSULE 600 MG PO ×2 (08:34→20:51)
[2021-10-07] MEDS: Benztropine Mesylate 1 MG TABLET PO ×2 (08:34→21:31)
[2021-10-07] MEDS: Cholecalciferol (Vitamin D3) 25 MCG TABLET PO (08:34)
[2021-10-07] MEDS: Omeprazole 20 MG CAPSULE.DR PO (08:34)
[2021-10-07] MEDS: Nicotine 21 MG PATCH.TD24 TRANSDERMA (08:34)
[2021-10-07] MEDS: Sertraline HCL 50 MG TABLET PO (08:34)
[2021-10-07] MEDS: Fluticasone/Vilanterol 100/25 BLST.W.DEV 1 PUFF INHALE (08:35)
[2021-10-07] MEDS: Acetaminophen 325 MG TABLET 650 MG PO (10:21)
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
[2021-10-07 20:51] VITALS: BP 144/94; PULSE 86
[2021-10-07] MEDS: traZODone HCL 50 MG TABLET PO (20:51)
[2021-10-07] MEDS: Prazosin HCL 1 MG CAPSULE 2 MG PO (20:51)
[2021-10-07] MEDS: OLANZapine 5 MG TABLET PO (20:51)
[2021-10-08 06:33] VITALS: BP 131/70; PULSE 83; RESP 18; TEMP 35.9; O2SAT 95
[2021-10-08] MEDS: Fluticasone/Vilanterol 100/25 BLST.W.DEV 1 PUFF INHALE (08:42)
[2021-10-08] MEDS: Lithium Carbonate 300 MG CAPSULE 600 MG PO ×2 (08:42→19:38)
[2021-10-08] MEDS: Benztropine Mesylate 1 MG TABLET PO ×2 (08:42→19:39)
[2021-10-08] MEDS: Ibuprofen 600 MG TABLET PO (08:42)
[2021-10-08] MEDS: Nicotine 21 MG PATCH.TD24 TRANSDERMA (08:42)
[2021-10-08] MEDS: Omeprazole 20 MG CAPSULE.DR PO (08:43)
[2021-10-08] MEDS: OLANZapine 5 MG TABLET PO (08:43)
[2021-10-08] MEDS: Sertraline HCL 50 MG TABLET PO (08:43)
[2021-10-08] MEDS: Gabapentin 100 MG CAPSULE 200 MG PO ×3 (08:43→19:34)
[2021-10-08] MEDS: Ferrous Sulfate 324 MG TABLET.DR PO (08:43)
[2021-10-08] MEDS: Cholecalciferol (Vitamin D3) 25 MCG TABLET PO (08:43)
[2021-10-08 17:05] VITALS: BP 114/56; PULSE 89; RESP 16; TEMP 36.4
[2021-10-08 19:34] VITALS: BP 133/58; PULSE 95
[2021-10-08] MEDS: Prazosin HCL 1 MG CAPSULE 2 MG PO (19:34)
[2021-10-08] MEDS: rOPINIRole HCL 0.5 MG TABLET PO (19:37)
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
[2021-10-09 06:00] VITALS: BP 112/70; PULSE 75; RESP 16; TEMP 36.2; O2SAT 94
[2021-10-09] MEDS: Omeprazole 20 MG CAPSULE.DR PO (06:26)
[2021-10-09] MEDS: Ibuprofen 600 MG TABLET PO ×2 (06:26→16:28)
[2021-10-09] MEDS: Gabapentin 100 MG CAPSULE 200 MG PO ×3 (08:10→19:48)
[2021-10-09] MEDS: Lithium Carbonate 300 MG CAPSULE 600 MG PO ×2 (08:10→20:57)
[2021-10-09] MEDS: OLANZapine 5 MG TABLET PO (08:11)
[2021-10-09] MEDS: Ferrous Sulfate 324 MG TABLET.DR PO (08:11)
[2021-10-09] MEDS: Benztropine Mesylate 1 MG TABLET PO ×2 (08:11→20:57)
[2021-10-09] MEDS: Sertraline HCL 50 MG TABLET PO (08:11)
[2021-10-09] MEDS: Cholecalciferol (Vitamin D3) 25 MCG TABLET PO (08:11)
[2021-10-09] MEDS: Nicotine 21 MG PATCH.TD24 TRANSDERMA (08:12)
[2021-10-09] MEDS: Fluticasone/Vilanterol 100/25 BLST.W.DEV 1 PUFF INHALE (08:23)
[2021-10-09] MEDS: Albuterol Sulfate 90 MCG 8 GM INHALER 2 PUFF INHALE (10:44)
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
--- NOTE | 2021-10-09 12:24 | MHC.RECOVSUP ---
? Reason for consult:Recovery Support o Current location: [facility] o Identified substance use concern:ETOH, Crack cocaine - Support ? Intervention: o Community resources provided o Harm reduction discussion ? Plan: o Patient to follow up with [facility] after discharge ? 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 Referred her to [facility] and [facility]. Gave her resources
[2021-10-09 18:00] VITALS: BP 134/67; PULSE 16; RESP 84; TEMP 36.1
[2021-10-09] MEDS: Acetaminophen 325 MG TABLET 650 MG PO (19:47)
[2021-10-09] MEDS: rOPINIRole HCL 0.5 MG TABLET PO (19:48)
[2021-10-09 20:56] VITALS: BP 134/67; PULSE 84
[2021-10-09] MEDS: Prazosin HCL 1 MG CAPSULE 2 MG PO (20:56)
[2021-10-09] MEDS: traZODone HCL 50 MG TABLET PO (20:57)
[2021-10-10] MEDS: Ibuprofen 600 MG TABLET PO ×3 (01:56→22:30)
[2021-10-10 06:00] VITALS: BP 115/84; PULSE 77; RESP 16; TEMP 36.1; O2SAT 96
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
[2021-10-10] MEDS: Omeprazole 20 MG CAPSULE.DR PO (06:16)
[2021-10-10] MEDS: Benztropine Mesylate 1 MG TABLET PO ×2 (08:24→20:08)
[2021-10-10] MEDS: Ferrous Sulfate 324 MG TABLET.DR PO (08:24)
[2021-10-10] MEDS: Lithium Carbonate 300 MG CAPSULE 600 MG PO ×2 (08:24→20:08)
[2021-10-10] MEDS: Cholecalciferol (Vitamin D3) 25 MCG TABLET PO (08:24)
[2021-10-10] MEDS: Gabapentin 100 MG CAPSULE 200 MG PO ×3 (08:24→20:08)
[2021-10-10] MEDS: Sertraline HCL 50 MG TABLET PO (08:24)
[2021-10-10] MEDS: OLANZapine 5 MG TABLET PO (08:24)
[2021-10-10] MEDS: Fluticasone/Vilanterol 100/25 BLST.W.DEV 1 PUFF INHALE (08:24)
[2021-10-10] MEDS: Nicotine 21 MG PATCH.TD24 TRANSDERMA (08:25)
[2021-10-10] MEDS: Acetaminophen 325 MG TABLET 650 MG PO (13:29)
[2021-10-10 20:00] VITALS: BP 128/70; PULSE 79; TEMP 36.4
[2021-10-10] MEDS: rOPINIRole HCL 0.5 MG TABLET PO (20:08)
[2021-10-10 20:09] VITALS: BP 128/70; PULSE 79
[2021-10-10] MEDS: Prazosin HCL 1 MG CAPSULE 2 MG PO (20:09)
[2021-10-10] MEDS: traZODone HCL 50 MG TABLET PO (20:17)
[2021-10-11 06:00] VITALS: BP 105/61; PULSE 74; RESP 18; TEMP 35.9; O2SAT 92
[2021-10-11] MEDS: Omeprazole 20 MG CAPSULE.DR PO (06:18)
[2021-10-11] MEDS: Sertraline HCL 50 MG TABLET PO (08:01)
[2021-10-11] MEDS: OLANZapine 5 MG TABLET PO (08:01)
[2021-10-11] MEDS: Ferrous Sulfate 324 MG TABLET.DR PO (08:01)
[2021-10-11] MEDS: Cholecalciferol (Vitamin D3) 25 MCG TABLET PO (08:01)
[2021-10-11] MEDS: Gabapentin 100 MG CAPSULE 200 MG PO ×3 (08:01→21:15)
[2021-10-11] MEDS: Benztropine Mesylate 1 MG TABLET PO ×2 (08:01→21:17)
[2021-10-11] MEDS: Nicotine 21 MG PATCH.TD24 TRANSDERMA (08:03)
[2021-10-11] MEDS: Fluticasone/Vilanterol 100/25 BLST.W.DEV 1 PUFF INHALE (08:07)
[2021-10-11] MEDS: Acetaminophen 325 MG TABLET 650 MG PO (08:07)
[2021-10-11] MEDS: Lithium Carbonate 300 MG CAPSULE 600 MG PO ×2 (08:07→21:16)
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
[2021-10-11] MEDS: Ibuprofen 600 MG TABLET PO ×2 (14:10→21:16)
[2021-10-11 17:32] VITALS: BP 111/56; PULSE 90; RESP 16; TEMP 36.7; O2SAT 94
[2021-10-11 21:17] VITALS: BP 146/80; PULSE 81
[2021-10-11] MEDS: Prazosin HCL 1 MG CAPSULE 2 MG PO (21:17)
[2021-10-11] MEDS: rOPINIRole HCL 0.5 MG TABLET PO (21:19)
[2021-10-12 06:00] VITALS: BP 115/73; PULSE 75; RESP 18; TEMP 36.4; O2SAT 97
[2021-10-12] MEDS: Omeprazole 20 MG CAPSULE.DR PO (06:52)
[2021-10-12] MEDS: Acetaminophen 325 MG TABLET 650 MG PO (06:59)
[2021-10-12] MEDS: Cholecalciferol (Vitamin D3) 25 MCG TABLET PO (08:11)
[2021-10-12] MEDS: Lithium Carbonate 300 MG CAPSULE 600 MG PO (08:11)
[2021-10-12] MEDS: Sertraline HCL 50 MG TABLET PO (08:11)
[2021-10-12] MEDS: Ferrous Sulfate 324 MG TABLET.DR PO (08:11)
[2021-10-12] MEDS: Fluticasone/Vilanterol 100/25 BLST.W.DEV 1 PUFF INHALE (08:11)
[2021-10-12] MEDS: Benztropine Mesylate 1 MG TABLET PO (08:11)
[2021-10-12] MEDS: Gabapentin 100 MG CAPSULE 200 MG PO (08:11)
[2021-10-12] MEDS: OLANZapine 5 MG TABLET PO (08:11)
[2021-10-12] MEDS: Nicotine 21 MG PATCH.TD24 TRANSDERMA (08:18)
[2021-10-12 09:37] VITALS: BP 115/73; PULSE 75; O2SAT 97
--- NOTE | 2021-10-12 13:46 | PM.PSYDC ---
DS: Providers Provider Date of Service: 10/12/21 Date of admission: 10/04/21 18:36 Date of discharge: 10/12/21 Primary care physician: Unknown Physician Admitting clinician: Reina Lyle Attending physician on admission: Mayo Cardona Consults: 10/08/21 10:49 Consult to General Surgery Routine Consulting Provider: [facility] Reason for consultation: Parotid Mass, increasing in size Has provider been notified: No Attending physician on discharge: Mayo Cardona Discharging clinician: Reina Lyle DS: Diagnosis Discharge Diagnosis (1) Bipolar disorder: Status: Acute (2) PTSD (post-traumatic stress disorder): Status: Acute DS: Medications Discharge Medications Home Medications: Previous Rx's Medication Instructions Recorded albuterol sulfate 90 mcg/actuation 2 puff INHALATION QID PRN #1 g 09/14/21 aerosol inhaler fluticasone 232 mcg-salmeterol 14 1 inh INHALATION BID #1 ea 09/14/21 mcg/actuation breath activated powdr (AirDuo RespiClick) white petrolatum-mineral oil 1 appl TOPICAL TID #1 g 09/14/21 topical cream (Dermacerin) benztropine 1 mg tablet 1 mg PO BEDTIME #30 tab 10/12/21 cholecalciferol (vitamin D3) 25 25 mcg PO DAILY #30 tab 10/12/21 mcg (1,000 unit) tablet ferrous sulfate 324 mg (65 mg 324 mg PO DAILY #30 tab 10/12/21 iron) tablet,delayed release gabapentin 100 mg capsule 200 mg PO TID #180 cap 10/12/21 lithium carbonate 600 mg capsule 600 mg PO BID #60 cap 10/12/21 nicotine 21 mg/24 hr daily 21 mg TRANSDERMAL DAILY #30 ea 10/12/21 transdermal patch olanzapine 5 mg tablet 5 mg PO DAILY #30 tab 10/12/21 omeprazole 20 mg capsule,delayed 20 mg PO DAILY@0630 #30 cap 10/12/21 release prazosin 1 mg capsule 2 mg PO BEDTIME #60 cap 10/12/21 sertraline 50 mg tablet 50 mg PO DAILY #30 tab 10/12/21 trazodone 150 mg tablet 150 mg PO BEDTIME #30 tab 10/12/21 trolamine salicylate-aloe vera 10 1 appl TOPICAL TID PRN #1 g 10/12/21 % topical cream (Aspercreme with Aloe) valacyclovir 1 gram tablet 1,000 mg PO BID #60 tab 10/12/21 Mental Status Exam Mental Status Exam Patient Appearance: Appropriate Patient Orientation: Person, Place, Time and Situation Level of Consciousness: Alert Patient Behavior: Appropriate, Talkative and Good Eye Contact Mood Description: Appropriate Affect Description: Appropriate Patient Cognition Impaired: No Ability to Follow Directions: Good Speech Pattern: Spontaneous Speech Memory Description: Intact Hallucinations: None Delusions: Not Present Thought Process: Goal Oriented Thought Content: positive for Goal Oriented, positive for Suicidal Ideation (denies) and positive for Homicidal Ideation (denies) Judgement: Good Data Data Completed and Pending Completed studies during hospitalization [Text1]: 10/03/21 Unknown Urine clean catch - Urine barker top Urine Culture - Final Imaging Diagnostic Imaging Impressions Cervical Spine CT 10/03/21 20:40 IMPRESSION: 1. No evidence of acute intracranial hemorrhage or edematous territorial infarction. 2. No evidence of acute fracture or traumatic subluxation of the cervical spine. 3. There is a heterogeneous soft tissue mass centered in the superficial lobe of the left parotid gland suspicious for an underlying neoplasm. This lesion has progressively increased in size dating back to 2019. Nonspecific mildly enlarged bilateral upper cervical chain lymphadenopathy. This critical result was discussed with LASHONDA Coppola at 21:10 on 10/03/2021 and it was ascertained that the content and urgency of the report was understood at the time of direct communication. Head CT 10/03/21 20:40 IMPRESSION: 1. No evidence of acute intracranial hemorrhage or edematous territorial infarction. 2. No evidence of acute fracture or traumatic subluxation of the cervical spine. 3. There is a heterogeneous soft tissue mass centered in the superficial lobe of the left parotid gland suspicious for an underlying neoplasm. This lesion has progressively increased in size dating back to 2019. Nonspecific mildly enlarged bilateral upper cervical chain lymphadenopathy. This critical result was discussed with LASHONDA Coppola at 21:10 on 10/03/2021 and it was ascertained that the content and urgency of the report was understood at the time of direct communication. DS: Summary Hospital Course Hospital Course: Admission to adult psychiatry to address symptoms of bipolar disorder, PTSD, overall decline in health and non-compliance with medication regime. Care plan, medication regime and out patient plan of care prior to admission were reviewed. Education was provided regarding management of symptoms, medications and side effects. Nursing and clinical social work therapist worked with Bhavana on collateral contacts, plan of care, education regarding management of symptoms, medicines and discharge planning. Added assessment time was spent discussing with pt her decline in physical health and effects of chronic homelessness. She was given housing options along with medical referrals however chose to decline these resources. She was encouraged to contact [facility] for management of Parotid mass, [facility] for eval of history of cervical cancer and [facility] for knee and rotator cuff reported injuries. Previous regime was re-established as pt had stopped medications prior to admission. Discussed with pt that we could do follow up lab work for med levels and evaluation of metabolism if she is not scheduled for her out pt medication appointment due to pandemic and holiday season delays. She reports she will call this instructional writer if she would like to utilize this option. Time spent discussing smoking cessation with patient: 3 to 10 minutes Status at Discharge Cognitive/behavioral status at discharge: non-psychotic, non-suicidal Functional status at discharge: independent ambulation Overall status at discharge: patient is progressing back to baseline Time Spent with Patient Time attestation: Total time spent providing and/or coordinating discharge services: 60 Time spent: Greater than 30 minutes Discharge Plan Discharge Patient Disposition: Xfer Other Discharge Diagnosis: PTSD Bipolar Disorder Parotid Mass Referrals: UNKNOWN PROVIDER [Other] - 1 Week JOE JAY [Other] - 10/30/21 2:00 pm (IN OFFICE) Discharge Medications: New Aspercreme with Aloe 10 % Cream 1 appl topical TID PRN (Reason: neck pain) Qty: 1 RF: 0 Continued Dermacerin Cream 1 appl topical TID Qty: 1 RF: 0 Discontinued olanzapine 10 mg Tablet 10 mg PO BID Qty: 60 RF: 0 benztropine 1 mg Tablet 1 mg PO BEDTIME Qty: 30 RF: 0 nicotine 21 mg/24 hr Patch 24 Hour 21 mg transdermal DAILY Qty: 30 RF: 0 valacyclovir 1 gram Tablet 1,000 mg PO BID Qty: 60 RF: 0 prazosin 1 mg Capsule 2 mg PO BEDTIME Qty: 60 RF: 0 lithium carbonate 600 mg Capsule 600 mg PO BID Qty: 60 RF: 0 trazodone 150 mg Tablet 150 mg PO BEDTIME Qty: 30 RF: 0 omeprazole 20 mg Capsule,Delayed Release(Dr/Ec) 20 mg PO DAILY@0630 Qty: 30 RF: 0 sertraline 50 mg Tablet 50 mg PO DAILY Qty: 30 RF: 0 cholecalciferol (vitamin D3) 25 mcg (1,000 unit) Tablet 25 mcg PO DAILY Qty: 30 RF: 0 ferrous sulfate 324 mg (65 mg iron) Tablet,Delayed Release (Dr/Ec) 324 mg PO DAILY Qty: 30 RF: 0 No Action quetiapine 25 mg Tablet 25 mg PO BID PRN (Reason: anxiety) 30 Days Qty: 45 RF: 0 ropinirole 0.5 mg Tablet 0.5 mg PO BEDTIME 30 Days Qty: 30 RF: 0 valacyclovir 1 gram Tablet 1,000 mg PO BID 30 Days Qty: 60 RF: 0 prazosin 1 mg Capsule 2 mg PO BEDTIME 30 Days Qty: 60 RF: 0 olanzapine 5 mg Tablet 5 mg PO BEDTIME 30 Days Qty: 30 RF: 0 lithium carbonate 600 mg Capsule 600 mg PO BID 30 Days Qty: 60 RF: 0 trazodone 150 mg Tablet 150 mg PO BEDTIME 30 Days Qty: 30 RF: 0 nicotine 21 mg/24 hr Patch 24 Hour 21 mg transdermal DAILY 30 Days Qty: 30 RF: 0 omeprazole 20 mg Capsule,Delayed Release(Dr/Ec) 20 mg PO DAILY@0630 30 Days Qty: 30 RF: 0 gabapentin 100 mg Capsule 200 mg PO BID 30 Days Qty: 120 RF: 0 albuterol sulfate 90 mcg/actuation HFA aerosol inhaler 2 puff inhalation Q4-6H PRN (Reason: shortness of breath or wheezing) 30 Days Qty: 8.5 RF: 0 sertraline 50 mg Tablet 50 mg PO DAILY 30 Days Qty: 30 RF: 0 cholecalciferol (vitamin D3) 25 mcg (1,000 unit) Tablet 25 mcg PO DAILY 30 Days Qty: 30 RF: 0 ferrous sulfate 324 mg (65 mg iron) Tablet,Delayed Release (Dr/Ec) 324 mg PO DAILY 30 Days Qty: 30 RF: 0 fluticasone propion-salmeterol [AirDuo RespiClick] 232-14 mcg/actuation Aerosol Powdr Breath Activated 1 inh INHALATION BID 30 Days Qty: 1 RF: 0 omega [id number] oil [Fish Oil] 1,000 mg (120 mg-180 mg) capsule 1 cap PO BID 30 Days Qty: 60 RF: 0 Discharge Orders: Discharge Order (Routine); Ordered 10/12/21 Ordered By: Reina Lyle Diet: advance to usual diet Activity on Discharge: As tolerated Stand Alone Forms: Patient Portal Discharge page, Community Support Care Plan Goals: Mood Stabilization Sobriety Medical follow up on issues identified Health Concerns: PTSD Bipolar Disorder Parotid Mass- We encourage you to contact [facility] of [facility] [phone]. Hx of [facility]-We encourage you to contact [facility] [phone] Rotator Cuff Tear, Knee Injuries- We encourage you to contact [facility] [phone] For other issues discuss appropriate referrals with primary care team for assessment and referral. Plan of Treatment: Attend appointments as scheduled Take medications as directed Call/return as needed Utilize crisis as needed [phone] [facility] reports you may no longer go to their center as you have missed appointments. Assessment: Non-psychotic, non-suicidal. Pt has decided not to proceed with retirement. She reports plans to stay with her friend Rosa who has a home where she has been offered a room. Pt plans she reports to follow up as an out patient with medical concerns. She will return to her psychiatric providers Discharge Date/Time: 10/12/21 12:05
== END 2021-10-12 12:05 | disposition other institution (70) | DRG 753 ==
LOC: HO.ED 18:43 → HO.PM5 10-04 18:42
PROVIDERS: Physician Assistant; Admitting Provider Registered Nurse; Emergency Provider Emergency Medicine Emergency Medical Services; Visit Provider Clinical Nurse Specialist Psychiatric/Mental Health, Adult
DX: F31.30 Bipolar disorder, current episode depressed, mild or moderate severity, unspecified (principal); R45.851 Suicidal ideations; F17.210 Nicotine dependence, cigarettes, uncomplicated; Z71.6 Tobacco abuse counseling; Z20.822 Contact with and (suspected) exposure to COVID-19; F43.10 Post-traumatic stress disorder, unspecified; K11.8 Other diseases of salivary glands; G47.33 Obstructive sleep apnea (adult) (pediatric); Z79.51 Long term (current) use of inhaled steroids; Z88.0 Allergy status to penicillin; Z88.2 Allergy status to sulfonamides; Z79.899 Other long term (current) drug therapy
CPT/HCPCS: 36415; 70450; 72125; 80053; 80178; 80307; 81001; 82077; 85025; 87086; 87635; 93005; 94660; 97110; 97116; 97162; 99285

== ENCOUNTER 2021-10-13 02:54 | Emergency (ER) | payer MEDICAID, SELFPAY ==
--- NOTE | ~2021-10-13 | XR_ITS ---
EXAMINATION: XR CHEST CLINICAL INFORMATION: Cough COMPARISON: 09/16/2021 TECHNIQUE: Frontal view of the chest was obtained. FINDINGS: Cardiac leads overlie the chest. The lungs are well expanded. There is no focal consolidation, edema, or effusion. No pneumothorax. The cardiomediastinal silhouette is within normal limits. No acute osseous abnormality. XR/XR chest 1V IMPRESSION: Clear lungs.
[2021-10-13 03:02] VITALS: BP 108/55; BP 137/86; PULSE 82; PULSE 84; RESP 23; TEMP 36.6; O2SAT 94; O2SAT 99; BMI 33.3
--- NOTE | 2021-10-13 03:22 | ECG_ITS ---
Test Reason : sob Blood Pressure : / mmHG Vent. Rate : 076 BPM Atrial Rate : 076 BPM P-R Int : 140 ms QRS Dur : 084 ms QT Int : 422 ms P-R-T Axes : -10 023 018 degrees QTc Int : 474 ms Normal sinus rhythm Normal ECG When compared with ECG of 04-OCT-2021 17:58, No significant change was found Referred By: Generic ED Physician Electronically Signed By:VAIBHAV KILLIAN MD
[2021-10-13 03:42] LABS: MANUAL DIFF FLAG NO
[2021-10-13 03:43] LABS: Basophils Absolute Auto 0.1 X10*3/uL (0.0-0.2); Basophils Percent Auto 0.7 % (0-2); Eosinophils Absolute Auto 0.1 X10*3/uL (0.0-0.4); Eosinophils Percent Auto 0.5 % (0-4); Hematocrit 40.4 % (37.0-47.0); Hemoglobin 12.8 g/dl (12.0-16.0); Imm Gran Abs Auto 0.04 X10*3/uL (0.00-0.03); Imm Gran Pct Auto 0.4 % (0.0-0.4); Lymphocytes Absolute Auto 2.1 X10*3/uL (1.2-4.9); Lymphocytes Percent Auto 19.3 % (20-40); Mean Corpuscular HGB Conc 31.7 g/dl (31.0-35.0); Mean Corpuscular Volume 94.6 fL (80.0-98.0); Mean Platelet Volume 9.7 fL (9.4-12.3); Monocytes Absolute Auto 0.6 X10*3/uL (0.1-1.2); Monocytes Percent Auto 5.7 % (2-11); Neutrophils Absolute Auto 8.1 x10*3/uL (2.0-8.3); Neutrophils Percent Auto 73.4 % (45-73); Platelet Count 269 X10*3/uL (160-400); Red Blood Count 4.27 X10*6/uL (4.20-5.50); Red Cell Distribution Width 13.1 % (11.0-16.0)
--- NOTE | 2021-10-13 03:47 | PC.NURSE ---
Labs and EKG obtained by [facility].
[2021-10-13 03:50] LABS: IDNOW Serial# 9DD0AD1C
[2021-10-13 03:51] LABS: COVID-19 Test Negative (Negative)
[2021-10-13 04:07] LABS: Anion Gap 13 (12-20); Blood Urea Nitrogen 11 mg/dL (9-16); Calcium 9.9 mg/dL (8.4-10.2); Carbon Dioxide 28 mmol/L (22-29); Chloride 102 mmol/L (96-108); Creatinine Clr Calc Pharmacy 102.5; Estimated Glomerular Filt Rate > 60; Glucose Random 112 mg/dL (60-115); Sodium 139 mmol/L (135-145)
[2021-10-13 04:15] LABS: Troponin-I High Sensitivity 26.6 ng/L (<3.5-17.0)
[2021-10-13 04:17] LABS: VBG Base Excess 5.3 mmol/L; VBG HCO3 28 mmol/L (22-26); VBG pCO2 36 mmHg; VBG pO2 47 mmHg; Venous Blood Gas Refer to POC result
--- NOTE | 2021-10-13 04:33 | PC.NURSE ---
at bedside for primary eval.
[2021-10-13] MEDS: Albuterol Sulfate (0.083%) 2.5 MG/3 ML VIAL.NEB 5 MG INHALE (04:51)
[2021-10-13] MEDS: Acetaminophen 325 MG TABLET PO (05:26)
[2021-10-13] MEDS: Acetaminophen 325 MG TABLET 650 MG PO (05:26)
[2021-10-13] MEDS: Lidocaine 4 % Patch ADH..PATCH 1 PATCH TRANSDERMA (05:26)
[2021-10-13 05:56] VITALS: BP 123/59; PULSE 84; RESP 18; O2SAT 96
--- NOTE | 2021-10-13 06:01 | ED.SOB ---
HPI - SOB/Dyspnea General Chief Complaint: Dyspnea Stated Complaint: COPD Time Seen by Provider: 10/13/21 03:46 Source: patient Mode of arrival: ambulatory History of Present Illness HPI Narrative: 51-year-old female with presentation to shortness of breath and stating that her COPD is acting up again . And then complaining of left-sided chest pain without associated fever, chills, GI or symptoms. Patient states that the pain gets worse on deep inspiration and with movement. However she denies any falls. Related Data Previous Rx's Medication Instructions Recorded albuterol sulfate 90 mcg/actuation 2 puff INHALATION QID PRN #1 g 09/14/21 aerosol inhaler fluticasone 232 mcg-salmeterol 14 1 inh INHALATION BID #1 ea 09/14/21 mcg/actuation breath activated powdr (AirDuo RespiClick) white petrolatum-mineral oil 1 appl TOPICAL TID #1 g 09/14/21 topical cream (Dermacerin) benztropine 1 mg tablet 1 mg PO BEDTIME #30 tab 10/12/21 cholecalciferol (vitamin D3) 25 25 mcg PO DAILY #30 tab 10/12/21 mcg (1,000 unit) tablet ferrous sulfate 324 mg (65 mg 324 mg PO DAILY #30 tab 10/12/21 iron) tablet,delayed release gabapentin 100 mg capsule 200 mg PO TID #180 cap 10/12/21 lithium carbonate 600 mg capsule 600 mg PO BID #60 cap 10/12/21 nicotine 21 mg/24 hr daily 21 mg TRANSDERMAL DAILY #30 ea 10/12/21 transdermal patch olanzapine 5 mg tablet 5 mg PO DAILY #30 tab 10/12/21 omeprazole 20 mg capsule,delayed 20 mg PO DAILY@0630 #30 cap 10/12/21 release prazosin 1 mg capsule 2 mg PO BEDTIME #60 cap 10/12/21 sertraline 50 mg tablet 50 mg PO DAILY #30 tab 10/12/21 trazodone 150 mg tablet 150 mg PO BEDTIME #30 tab 10/12/21 trolamine salicylate-aloe vera 10 1 appl TOPICAL TID PRN #1 g 10/12/21 % topical cream (Aspercreme with Aloe) valacyclovir 1 gram tablet 1,000 mg PO BID #60 tab 10/12/21 Allergies Allergy/AdvReac Type Severity Reaction Status Date / Time aspirin [Aspirin] Allergy Severe HIVES,THROAT Verified 10/13/21 04:51 SWELLS bee pollen [BEE STINGS] Allergy Severe ANAPHYLAXIS Verified 10/13/21 04:51 diphenhydramine Allergy Severe hives, Verified 10/13/21 04:51 [From BENADRYL ALLERGY] throat swells Penicillins [PCN] Allergy Severe HIVES Verified 10/13/21 04:51 THROAT SWELLS Sulfa (Sulfonamide Allergy Intermediate HIVES Verified 10/13/21 04:51 Antibiotics) [SULFA (SULFONAMIDE ANTIBIOTICS)] tramadol [TRAMADOL] Allergy Intermediate ITCHING Verified 10/13/21 04:51 latex [LATEX] Allergy Unknown UNKNOWN Verified 10/13/21 04:51 penicillin G Allergy Unknown Unknown Verified 10/13/21 04:51 levofloxacin [From Levaquin] Allergy Hives Verified 10/13/21 04:51 bee stings Allergy Unknown Unknown Uncoded 10/13/21 04:51 DairyCare Allergy Unknown Unknown Uncoded 10/13/21 04:51 sulfa drugs Allergy Unknown Unknown Uncoded 10/13/21 04:51 Review of Systems Review of Systems: Pertinent positives and negatives as stated in HPI 10 point review of systems is otherwise negative. PMFSH Past Medical History Source: nursing notes reviewed Medical History Asthma exacerbation in COPD Bipolar disorder Bipolar I disorder Borderline personality disorder Borderline personality disorder COPD (chronic obstructive pulmonary disease) Depression Drug abuse Herpes Intermittent explosive disorder FABIOLA (obstructive sleep apnea) Post traumatic stress disorder (PTSD) PTSD (post-traumatic stress disorder) PTSD (post-traumatic stress disorder) Tobacco use Surgical History History of ankle surgery History of appendectomy History of back surgery Hx of cholecystectomy Family History Family History Mother COPD (chronic obstructive pulmonary disease) Social History Social History Household Members: None Household Members Other:: Pt states she hangs out with a male friend and a female friend Housing: Homeless Housing Other:: will be getting apartment 07/01 Do you presently have visiting nurse or other home services: No Unable to assess alcohol history related to: Unknown Alcohol intake: never Patient Tobacco Use Status: Current everyday Tobacco user Tobacco use type: Cigarette Cigarette Packs Per Day: 2 Cigarettes Per Day: 40.0 Years Smoked: 17 e-Cigarette/Vaping Use: Never Used Second Hand Smoke Exposure: Yes Substance Use Type: Crack/Cocaine Advance Directives: Yes Advance Directives on File: Yes Advance Directives Date on File: 12/24/20 service: No Current occupational status: unemployed and disabled Sexual orientation: Straight/Heterosexual Physical Exam Vital Signs: Vital Signs: Last Vital Signs Temp 97.8 F 10/13/21 03:02 Pulse 84 10/13/21 05:56 Resp 18 10/13/21 05:56 BP 123/59 L 10/13/21 05:56 Pulse Ox 96 10/13/21 06:02 BMI result Body Mass Index 33.3 VITAL SIGNS: Reviewed. GENERAL: Well developed, well nourished, in no acute distress. HEAD: Normocephalic/atraumatic, EYES: PERRLA, EOMI EARS: Ext canals without abnormality, TMs non-bulging and non-erythematous NOSE: Nares patent bilateral OROPHARYNX: no oral lesions noted, posterior pharynx clear NECK: Supple, no adenopathy LUNGS: Mildly decreased breath sounds with expiratory wheeze and coarse rhonchi noted no tachypnea or increased work of breathing at this time. SpO2<96> , reproducible chest pain on palpation left chest CARDIOVASCULAR: Regular rate and rhythm without noted murmurs, no JVD or lower extremity edema. ABDOMEN: Soft, non-tender, non-distended with bowel sounds. MUSCULOSKELETAL: No tenderness, deformities, or effusions noted on gross inspection. EXTREMITIES: No cyanosis, clubbing or edema. SKIN: Inspection of the skin reveals no rashes NEUROLOGIC: Alert and oriented x 4. Strength and sensation to light touch were grossly intact x 4. Course Course Course Narrative: 51-year-old female with history and clinical presentation suggestive possible COPD exacerbation with some associated pleurisy and possible costochondritis but in absence fever chills less likely felt to be in pneumonia. review of all investigations negative for acute findings to suggest COPD exacerbation, however patient did receive 1 albuterol treatment and states that it did not help. In addition, no evidence of fluid overload and on review of EKG there are no changes to suggest STEMI or ischemia. troponin was noted to be detectable but serial measurement otherwise flat and patient remains hemodynamically stable. MDM - SOB/Dyspnea Lab Data Result diagrams: 10/13/21 03:34 10/13/21 03:34 Labs: Lab Results 10/13/21 10/13/21 10/13/21 Range/Units 03:30 03:34 03:34 WBC 11.0 H (4.8-10.8) X10*3/uL RBC 4.27 (4.20-5.50) X10*6/uL Hgb 12.8 (12.0-16.0) g/dl Hct 40.4 (37.0-47.0) % MCV 94.6 (80.0-98.0) fL MCH 30.0 (27.0-33.0) pg MCHC 31.7 (31.0-35.0) g/dl RDW 13.1 (11.0-16.0) % Plt Count 269 (160-400) X10*3/uL MPV 9.7 (9.4-12.3) fL Immature Gran % (Auto) 0.4 (0.0-0.4) % Neut % (Auto) 73.4 H (45-73) % Lymph % (Auto) 19.3 L (20-40) % [place] % (Auto) 5.7 (2-11) % Eos % (Auto) 0.5 (0-4) % Baso % (Auto) 0.7 (0-2) % Lymph # (Auto) 2.1 (1.2-4.9) X10*3/uL [place] # (Auto) 0.6 (0.1-1.2) X10*3/uL Eos # (Auto) 0.1 (0.0-0.4) X10*3/uL Baso # (Auto) 0.1 (0.0-0.2) X10*3/uL Abs Immat Gran (auto) 0.04 H (0.00-0.03) X10*3/uL Absolute Neuts (auto) 8.1 (2.0-8.3) x10*3/uL Absolute Nucleated RBC 0.000 (0.0-0.012) X10*3/uL Nucleated RBC % (auto) 0.0 (0.0-0.2) /100WBC VBG pH (7.32-7.43) VBG pCO2 mmHg VBG pO2 mmHg VBG HCO3 (22-26) mmol/L VBG O2 Saturation % VBG Base Excess mmol/L Sodium 139 (135-145) mmol/L Potassium 4.0 (3.3-5.1) mmol/L Chloride 102 (96-108) mmol/L Carbon Dioxide 28 (22-29) mmol/L Anion Gap 13 (12-20) BUN 11 (9-16) mg/dL Creatinine 0.73 (0.5-1.4) mg/dL Estim Creat Clear Calc 102.5 Estimated GFR > 60 Random Glucose 112 (60-115) mg/dL Calcium 9.9 (8.4-10.2) mg/dL Troponin I High Sens (<3.5-17.0) ng/L B-Natriuretic Peptide (<100) pg/mL COVID-19 (ENDY) Negative (Negative) COVID-19 Clin Com See Note 10/13/21 10/13/21 10/13/21 Range/Units 03:34 04:10 06:11 WBC (4.8-10.8) X10*3/uL RBC (4.20-5.50) X10*6/uL Hgb (12.0-16.0) g/dl Hct (37.0-47.0) % MCV (80.0-98.0) fL MCH (27.0-33.0) pg MCHC (31.0-35.0) g/dl RDW (11.0-16.0) % Plt Count (160-400) X10*3/uL MPV (9.4-12.3) fL Immature Gran % (Auto) (0.0-0.4) % Neut % (Auto) (45-73) % Lymph % (Auto) (20-40) % [place] % (Auto) (2-11) % Eos % (Auto) (0-4) % Baso % (Auto) (0-2) % Lymph # (Auto) (1.2-4.9) X10*3/uL [place] # (Auto) (0.1-1.2) X10*3/uL Eos # (Auto) (0.0-0.4) X10*3/uL Baso # (Auto) (0.0-0.2) X10*3/uL Abs Immat Gran (auto) (0.00-0.03) X10*3/uL Absolute Neuts (auto) (2.0-8.3) x10*3/uL Absolute Nucleated RBC (0.0-0.012) X10*3/uL Nucleated RBC % (auto) (0.0-0.2) /100WBC VBG pH 7.50 H (7.32-7.43) VBG pCO2 36 mmHg VBG pO2 47 mmHg VBG HCO3 28 H (22-26) mmol/L VBG O2 Saturation 84.0 % VBG Base Excess 5.3 mmol/L Sodium (135-145) mmol/L Potassium (3.3-5.1) mmol/L Chloride (96-108) mmol/L Carbon Dioxide (22-29) mmol/L Anion Gap (12-20) BUN (9-16) mg/dL Creatinine (0.5-1.4) mg/dL Estim Creat Clear Calc Estimated GFR Random Glucose (60-115) mg/dL Calcium (8.4-10.2) mg/dL Troponin I High Sens 26.6 H 16.7 (<3.5-17.0) ng/L B-Natriuretic Peptide 59 (<100) pg/mL COVID-19 (ENDY) (Negative) COVID-19 Clin Com ECG Data Attestation: I personally reviewed and interpreted this ECG as follows: Prior ECG tracings: available for review ( 10/04/2021) Interpretation: , sinus rhythm, HR-76, no STEMI, IA/ QRS /QTC are within normal limits. Discharge Plan Discharge Clinical Impression: Shortness of breath Patient Disposition: Home, Self-Care Instructions: COPD (Chronic Obstructive Pulmonary Disease) (ED), Acute Bronchitis (ED) Additional Instructions: Resume all of your home medications. Follow-up with your primary care provider. Prescriptions: No Action Dermacerin Cream 1 appl topical TID Qty: 1 RF: 0 albuterol sulfate 90 mcg/actuation HFA aerosol inhaler 2 puff inhalation QID PRN (Reason: wheezing) Qty: 1 RF: 0 fluticasone propion-salmeterol [AirDuo RespiClick] 232-14 mcg/actuation Aerosol Powdr Breath Activated 1 inh INHALATION BID Qty: 1 RF: 0 olanzapine 5 mg Tablet 5 mg PO DAILY Qty: 30 RF: 0 gabapentin 100 mg Capsule 200 mg PO TID Qty: 180 RF: 0 Aspercreme with Aloe 10 % Cream 1 appl topical TID PRN (Reason: neck pain) Qty: 1 RF: 0 valacyclovir 1 gram Tablet 1,000 mg PO BID Qty: 60 RF: 0 prazosin 1 mg Capsule 2 mg PO BEDTIME Qty: 60 RF: 0 lithium carbonate 600 mg Capsule 600 mg PO BID Qty: 60 RF: 0 trazodone 150 mg Tablet 150 mg PO BEDTIME Qty: 30 RF: 0 benztropine 1 mg Tablet 1 mg PO BEDTIME Qty: 30 RF: 0 nicotine 21 mg/24 hr Patch 24 Hour 21 mg transdermal DAILY Qty: 30 RF: 0 omeprazole 20 mg Capsule,Delayed Release(Dr/Ec) 20 mg PO DAILY@0630 Qty: 30 RF: 0 sertraline 50 mg Tablet 50 mg PO DAILY Qty: 30 RF: 0 cholecalciferol (vitamin D3) 25 mcg (1,000 unit) Tablet 25 mcg PO DAILY Qty: 30 RF: 0 ferrous sulfate 324 mg (65 mg iron) Tablet,Delayed Release (Dr/Ec) 324 mg PO DAILY Qty: 30 RF: 0
[2021-10-13 06:02] VITALS: O2SAT 96
[2021-10-13 06:22] LABS: B Type Natriuretic Peptide 59 pg/mL (<100)
--- NOTE | 2021-10-13 06:24 | ECG_ITS ---
Test Reason : chest,back pain Blood Pressure : / mmHG Vent. Rate : 075 BPM Atrial Rate : 075 BPM P-R Int : 142 ms QRS Dur : 088 ms QT Int : 442 ms P-R-T Axes : -17 028 016 degrees QTc Int : 493 ms Normal sinus rhythm Prolonged QT Abnormal ECG When compared with ECG of 13-OCT-2021 03:34, No significant change was found Referred By: Sonia Hendrix Electronically Signed By:VAIBHAV KILLIAN MD
[2021-10-13 06:34] LABS: Troponin-I High Sensitivity 16.7 ng/L (<3.5-17.0)
== END 2021-10-13 07:14 | disposition home or self-care (01) ==
PROVIDERS: Emergency Provider Student in an Organized Health Care Education/Training Program
DX: R06.02 Shortness of breath (principal); Z20.822 Contact with and (suspected) exposure to COVID-19; J44.9 Chronic obstructive pulmonary disease, unspecified; F17.200 Nicotine dependence, unspecified, uncomplicated
CPT/HCPCS: 36415; 71045; 80048; 82803; 83880; 84484; 85025; 87635; 93005; 99284

== ENCOUNTER 2021-10-20 14:26 | Emergency (ER) | payer MEDICAID, SELFPAY ==
[2021-10-20] VITALS (8 sets, daily range): BP systolic 126–130; BP diastolic 64–90; PULSE 82–105; RESP 14–25; TEMP 36.7–36.9; O2SAT 94–98; BMI 33.3
--- NOTE | ~2021-10-20 | XR_ITS ---
EXAMINATION: XR CHEST CLINICAL INFORMATION: Dyspnea COMPARISON: Previous chest x-ray 10/13/2021 TECHNIQUE: Frontal view of the chest was obtained. FINDINGS: No significant abnormality is noted involving the heart, lungs, mediastinum, bony thorax or soft tissues. XR/XR chest 1V IMPRESSION: Unremarkable examination.
--- NOTE | 2021-10-20 14:55 | ED.ASTHMA ---
HPI - Asthma General Chief Complaint: Asthma Stated Complaint: SOB 88% RA, 98% 4LPM PER EMS Time Seen by Provider: 10/20/21 14:50 Source: patient Mode of arrival: EMS Limitations: no limitations History of Present Illness HPI Narrative: 87% on RA on EMS arrival no treatments given by EMS MD complaint: asthma attack , shortness of breath and wheezing Onset (ago): day(s) (4) Severity: severe Context: smoke exposure and other (outside in cold) Associated symptoms: dry cough Asthma History: childhood onset Related Data Previous Rx's Medication Instructions Recorded albuterol sulfate 90 mcg/actuation 2 puff INHALATION QID PRN #1 g 09/14/21 aerosol inhaler fluticasone 232 mcg-salmeterol 14 1 inh INHALATION BID #1 ea 09/14/21 mcg/actuation breath activated powdr (AirDuo RespiClick) white petrolatum-mineral oil 1 appl TOPICAL TID #1 g 09/14/21 topical cream (Dermacerin) benztropine 1 mg tablet 1 mg PO BEDTIME #30 tab 10/12/21 cholecalciferol (vitamin D3) 25 25 mcg PO DAILY #30 tab 10/12/21 mcg (1,000 unit) tablet ferrous sulfate 324 mg (65 mg 324 mg PO DAILY #30 tab 10/12/21 iron) tablet,delayed release gabapentin 100 mg capsule 200 mg PO TID #180 cap 10/12/21 lithium carbonate 600 mg capsule 600 mg PO BID #60 cap 10/12/21 nicotine 21 mg/24 hr daily 21 mg TRANSDERMAL DAILY #30 ea 10/12/21 transdermal patch olanzapine 5 mg tablet 5 mg PO DAILY #30 tab 10/12/21 omeprazole 20 mg capsule,delayed 20 mg PO DAILY@0630 #30 cap 10/12/21 release prazosin 1 mg capsule 2 mg PO BEDTIME #60 cap 10/12/21 sertraline 50 mg tablet 50 mg PO DAILY #30 tab 10/12/21 trazodone 150 mg tablet 150 mg PO BEDTIME #30 tab 10/12/21 trolamine salicylate-aloe vera 10 1 appl TOPICAL TID PRN #1 g 10/12/21 % topical cream (Aspercreme with Aloe) valacyclovir 1 gram tablet 1,000 mg PO BID #60 tab 10/12/21 Allergies Allergy/AdvReac Type Severity Reaction Status Date / Time aspirin [Aspirin] Allergy Severe HIVES,THROAT Verified 10/13/21 04:51 SWELLS bee pollen [BEE STINGS] Allergy Severe ANAPHYLAXIS Verified 10/13/21 04:51 diphenhydramine Allergy Severe hives, Verified 10/13/21 04:51 [From BENADRYL ALLERGY] throat swells Penicillins [PCN] Allergy Severe HIVES Verified 10/13/21 04:51 THROAT SWELLS Sulfa (Sulfonamide Allergy Intermediate HIVES Verified 10/13/21 04:51 Antibiotics) [SULFA (SULFONAMIDE ANTIBIOTICS)] tramadol [TRAMADOL] Allergy Intermediate ITCHING Verified 10/13/21 04:51 latex [LATEX] Allergy Unknown UNKNOWN Verified 10/13/21 04:51 penicillin G Allergy Unknown Unknown Verified 10/13/21 04:51 levofloxacin [From Levaquin] Allergy Hives Verified 10/13/21 04:51 bee stings Allergy Unknown Unknown Uncoded 10/13/21 04:51 DairyCare Allergy Unknown Unknown Uncoded 10/13/21 04:51 sulfa drugs Allergy Unknown Unknown Uncoded 10/13/21 04:51 Review of Systems Review of Systems: Constitutional : No Fever, No Chills ENT/Mouth : No Hoarseness, No sore throat, No Rhinorrhea Eyes: No Redness, No Discharge, No Vision Changes Cardiovascular : No Chest Pain, positive SOB, positive Dyspnea on Exertion, No Edema Respiratory : positive Cough, No Sputum, positive Wheezing, Gastrointestinal : No Nausea, No Vomiting, No Diarrhea, No abdominal Pain Genitourinary : No Dysuria, No Hematuria Musculoskeletal : No joint pain, No Myalgias Skin : No rash Neuro : No Weakness, No Numbness, No Headache Psych : No anxiety, depression Heme/Lymph: No Bruising, No Bleeding Endocrine : No Polyuria, No Polydipsia All other systems reviewed and are negative PMFSH Past Medical History Attestation statement: The following information was validated with the patient. Medical History Asthma exacerbation in COPD Bipolar disorder Bipolar I disorder Borderline personality disorder Borderline personality disorder COPD (chronic obstructive pulmonary disease) Depression Drug abuse Herpes Intermittent explosive disorder FABIOLA (obstructive sleep apnea) Post traumatic stress disorder (PTSD) PTSD (post-traumatic stress disorder) PTSD (post-traumatic stress disorder) Tobacco use Surgical History History of ankle surgery History of appendectomy History of back surgery Hx of cholecystectomy Family History Family History Mother COPD (chronic obstructive pulmonary disease) Social History Social History Household Members: None Household Members Other:: Pt states she hangs out with a male friend and a female friend Housing: Homeless Housing Other:: will be getting apartment 07/01 Do you presently have visiting nurse or other home services: No Unable to assess alcohol history related to: Unknown Alcohol intake: never Patient Tobacco Use Status: Current everyday Tobacco user Tobacco use type: Cigarette Cigarette Packs Per Day: 2 Cigarettes Per Day: 40.0 Years Smoked: 17 e-Cigarette/Vaping Use: Never Used Second Hand Smoke Exposure: Yes Substance Use Type: Crack/Cocaine Advance Directives: Yes Advance Directives on File: Yes Advance Directives Date on File: 12/24/20 Patient : No service: No Current occupational status: unemployed and disabled Sexual orientation: Straight/Heterosexual Physical Exam Vital Signs: Vital Signs: Last Vital Signs Temp 98.4 F 10/20/21 16:03 Pulse 82 10/20/21 16:12 Resp 16 10/20/21 16:12 BP 128/74 10/20/21 16:03 Pulse Ox 96 10/20/21 16:03 BMI result Body Mass Index 33.3 Appearance: Alert. Oriented X3. Mild acute distress. Eyes: Pupils equal, round and reactive to light. ENT: Pharynx normal. Neck: Normal inspection. Neck supple. CVS: Normal heart rate and rhythm. Pulses normal. Respiratory: Mild respiratory distress - tachypnea and retractions. Breath sounds decreased throughout with diffuse end exp wheezes Abdomen: Soft and non-tender. Skin: Skin warm and dry. Normal skin color. Normal skin turgor. Extremities: No lower extremity edema. No calf ttp Neuro: Oriented X 3. No motor deficit. No sensory deficit. Course Course Course Narrative: signed out to Dr. Lynn pending labs and xray repeat 2.5mg neb ordered MDM - Asthma MDM Narrative Medical decision making narrative: 51 yo female well known to us for bipolar disorder, PTSD, asthma here with c/o 4 days of being outside in cold with wheezing and dry cough did not respond to home inhalers at this time will need labs, 5mg albuterol neb, IV steroids, IV magnesium, CXR, COVID swab. Dispo per results and findings. Lab Data Labs: Lab Results 10/20/21 Range/Units 15:39 COVID-19 (ENDY) Negative (Negative) COVID-19 Clin Com See Note Critical Care Time Critical Care Time Critical Care Time: Yes Total Critical Care Time: 45 Attestation: repeat nebs, IV steroids, intermittent O2 supplementation I attest to this time spent taking care of the patient Discharge Plan Discharge Clinical Impression: Asthma with acute exacerbation Qualifiers: Asthma severity: moderate Asthma persistence: persistent Qualified Code(s): J45.41 - Moderate persistent asthma with (acute) exacerbation Prescriptions: No Action Dermacerin Cream 1 appl topical TID Qty: 1 RF: 0 albuterol sulfate 90 mcg/actuation HFA aerosol inhaler 2 puff inhalation QID PRN (Reason: wheezing) Qty: 1 RF: 0 fluticasone propion-salmeterol [AirDuo RespiClick] 232-14 mcg/actuation Aerosol Powdr Breath Activated 1 inh INHALATION BID Qty: 1 RF: 0 olanzapine 5 mg Tablet 5 mg PO DAILY Qty: 30 RF: 0 gabapentin 100 mg Capsule 200 mg PO TID Qty: 180 RF: 0 Aspercreme with Aloe 10 % Cream 1 appl topical TID PRN (Reason: neck pain) Qty: 1 RF: 0 valacyclovir 1 gram Tablet 1,000 mg PO BID Qty: 60 RF: 0 prazosin 1 mg Capsule 2 mg PO BEDTIME Qty: 60 RF: 0 lithium carbonate 600 mg Capsule 600 mg PO BID Qty: 60 RF: 0 trazodone 150 mg Tablet 150 mg PO BEDTIME Qty: 30 RF: 0 benztropine 1 mg Tablet 1 mg PO BEDTIME Qty: 30 RF: 0 nicotine 21 mg/24 hr Patch 24 Hour 21 mg transdermal DAILY Qty: 30 RF: 0 omeprazole 20 mg Capsule,Delayed Release(Dr/Ec) 20 mg PO DAILY@0630 Qty: 30 RF: 0 sertraline 50 mg Tablet 50 mg PO DAILY Qty: 30 RF: 0 cholecalciferol (vitamin D3) 25 mcg (1,000 unit) Tablet 25 mcg PO DAILY Qty: 30 RF: 0 ferrous sulfate 324 mg (65 mg iron) Tablet,Delayed Release (Dr/Ec) 324 mg PO DAILY Qty: 30 RF: 0
[2021-10-20] MEDS: Albuterol Sulfate (0.083%) 2.5 MG/3 ML VIAL.NEB 5 MG INHALE (14:57)
[2021-10-20] MEDS: Magnesium Sulfate/H2O 2 GM/50 ML PIGGYBACK IV (15:36)
[2021-10-20] MEDS: methylPREDNISolone Sod Succ 125 MG/2 ML VIAL IVPUSH (15:37)
[2021-10-20 16:01] LABS: COVID-19 Test Negative (Negative)
[2021-10-20] MEDS: Albuterol Sulfate (0.083%) 2.5 MG/3 ML VIAL.NEB INHALE (16:11)
[2021-10-20 17:13] LABS: MANUAL DIFF FLAG NO
[2021-10-20 17:18] LABS: Basophils Absolute Auto 0.1 X10*3/uL (0.0-0.2); Basophils Percent Auto 0.6 % (0-2); Eosinophils Absolute Auto 0.1 X10*3/uL (0.0-0.4); Eosinophils Percent Auto 0.6 % (0-4); Hematocrit 40.8 % (37.0-47.0); Imm Gran Abs Auto 0.03 X10*3/uL (0.00-0.03); Imm Gran Pct Auto 0.3 % (0.0-0.4); Lymphocytes Absolute Auto 2.5 X10*3/uL (1.2-4.9); Lymphocytes Percent Auto 28.5 % (20-40); Mean Corpuscular HGB Conc 31.9 g/dl (31.0-35.0); Mean Corpuscular Hemoglobin 29.9 pg (27.0-33.0); Mean Corpuscular Volume 93.8 fL (80.0-98.0); Mean Platelet Volume 9.5 fL (9.4-12.3); Monocytes Absolute Auto 0.3 X10*3/uL (0.1-1.2); Platelet Count 353 X10*3/uL (160-400); Red Blood Count 4.35 X10*6/uL (4.20-5.50); Red Cell Distribution Width 12.8 % (11.0-16.0); White Blood Count 8.9 X10*3/uL (4.8-10.8)
[2021-10-20 17:28] LABS: Anion Gap 12 (12-20); Blood Urea Nitrogen 18 mg/dL (9-16); Calcium 10.2 mg/dL (8.4-10.2); Carbon Dioxide 32 mmol/L (22-29); Chloride 102 mmol/L (96-108); Creatinine Clr Calc Pharmacy 101.2; Estimated Glomerular Filt Rate > 60; Glucose Random 189 mg/dL (60-115); Potassium 4.4 mmol/L (3.3-5.1); Sodium 142 mmol/L (135-145)
--- NOTE | 2021-10-20 19:10 | PC.NURSE ---
PT moved to bathroom with wheelchair. PT had dyspnea on exertion while using the bathroom. PT returned to room wheezing and SOB. PT sat on O2 93% on RA. PT also had an episode of vomiting.
[2021-10-20] MEDS: Albuterol Sulfate (0.083%) 2.5 MG/3 ML VIAL.NEB 10 MG INHALE (19:40)
--- NOTE | 2021-10-20 19:43 | MHC.RECOVSUP ---
Addendum entered by Jaimie Velez 10/20/21 19:46: I was able to connect with patient and review harm reduction strategies. I suggested local TSS in the area, patient was open minded to the suggestions and would like a safe place to stay. Patient hasn't engaged in drugs or alcohol in the past four days although is triggered on a regular basis in the community. Client disclosed that she was scared to be out in the streets and described her experiences these past few days. I also suggested community resources that included recovery outreach, [facility] and [facility]. Patient will be discharged and a Lift will be provided, The Care Team was notified. Original Note: ? Reason for consult: [employer] Support o ? ? ?Current location: ED9 o ? ? ?Identified substance use concern: ?Crack/Cocaine Alcohol - Support ? ?Intervention: o Community resources provided o Harm reduction discussion ? Plan: ? Additional information:?I was able to connect with patient asia
== END 2021-10-20 20:53 | disposition home or self-care (01) ==
PROVIDERS: Emergency Medicine; Emergency Provider Emergency Medicine
DX: J45.41 Moderate persistent asthma with (acute) exacerbation (principal); Z20.822 Contact with and (suspected) exposure to COVID-19
CPT/HCPCS: 36415; 71045; 80048; 85025; 87635; 94640; 94644; 94645; 96365; 96366; 96375; 99284; 99291; J2930; J3475

== ENCOUNTER 2021-10-21 01:46 | Inpatient (IN) | payer OTHER, SELFPAY ==
--- NOTE | 2021-10-21 | ECG_ITS ---
Test Reason : medical clearance Blood Pressure : / mmHG Vent. Rate : 083 BPM Atrial Rate : 083 BPM P-R Int : 134 ms QRS Dur : 084 ms QT Int : 400 ms P-R-T Axes : 049 043 028 degrees QTc Int : 470 ms Normal sinus rhythm Normal ECG When compared with ECG of 13-OCT-2021 06:25, No significant change was found Referred By: Monisha Ricketts Electronically Signed By:ALEJANDRO MCCLELLAN
--- NOTE | ~2021-10-21 | CT_ITS ---
EXAMINATION: CT HEAD WITHOUT CONTRAST CLINICAL INFORMATION: Mental status change. Sudden onset of aphasia. COMPARISON: October 03, 2021 and July 08, 2021 TECHNIQUE: Contiguous axial imaging was performed from the skull base to vertex without intravenous administration of contrast. This CT examination was performed using dose optimization techniques as appropriate, variously including the following: *Automated exposure control *Adjustment of mA and/or kV according to patient size (this includes techniques or standardized protocols for targeted exams where dose is matched to indication/reason for exam; i.e. extremities or head) *Use of iterative reconstruction technique DLP: 648 mGy-cm FINDINGS: There is no evidence of acute intracranial hemorrhage or territorial infarction. No abnormal mass effect or midline shift is seen. Jarvis to white matter differentiation is well preserved. No extra-axial fluid collections are identified. The ventricles are normal in size. There is no abnormal attenuation within the brain parenchyma. The osseous structures and soft tissues are normal. The mastoid air cells and visualized portions of the paranasal sinuses are well aerated. CT/CT head/brain wo con IMPRESSION: No acute intracranial pathology.
--- NOTE | ~2021-10-21 | XR_ITS ---
EXAMINATION: XR CHEST CLINICAL INFORMATION: Shortness of breath COMPARISON: Chest x-ray 10/20/2021 TECHNIQUE: 2 views of the chest were obtained. FINDINGS: No significant abnormality is noted involving the heart, lungs, mediastinum, bony thorax or soft tissues. Surgical clips in the upper abdomen. XR/XR chest 2V IMPRESSION: Unremarkable examination.
--- NOTE | ~2021-10-21 | US_ITS ---
EXAMINATION: US EXTRACRANIAL CAROTID DUPLEX, BILATERAL CLINICAL INFORMATION: Confusion COMPARISON: None TECHNIQUE: Real-time ultrasound and Doppler techniques (integrating B-mode 2-D vascular images, Doppler spectral analysis and color-flow Doppler imaging) were utilized to interrogate the extracranial carotid arteries, the vertebral arteries and proximal subclavian arteries bilaterally. The degree of stenosis is determined by criteria similar to NASCET. FINDINGS: Right Side: 1. There is no atherosclerotic plaque seen in the bifurcation/proximal ICA region. 2. The common carotid artery PSV proximally is 146 cm/s and distally 120 cm/s. 3. The proximal internal carotid artery velocities are 143 cm/s systolic and 25.2 cm/s diastolic. 4. The proximal external carotid artery PSV is 133 cm/s. 5. The vertebral artery shows antegrade flow. 6. The subclavian artery waveforms are normal. Left Side: 1. There is no atherosclerotic plaque seen in the bifurcation/proximal ICA region. 2. The common carotid artery PSV proximally is 126 cm/s and distally 105 cm/s. 3. The proximal internal carotid artery velocities are 103 cm/s systolic and 19.3 cm/s diastolic. 4. The proximal external carotid artery PSV is 127 cm/s. 5. The vertebral artery shows antegrade flow. 6. The subclavian artery waveforms are normal. US/US carotid duplex BI IMPRESSION: 1. RIGHT: Moderate, hemodynamically significant stenosis of the proximal right internal carotid artery corresponding to a 50-79% stenosis by velocity criteria. However, no plaque was identified. The communications technologist did not indicate tortuosity as a potential confounding factor for velocity measurement error. Consider follow-up with repeat ultrasound interrogation versus CTA of the neck. 2. LEFT: Normal left internal carotid artery without atherosclerotic plaque or hemodynamically significant stenosis.
[2021-10-21 01:57] VITALS: BP 145/78; PULSE 105; RESP 16; TEMP 36.1; O2SAT 95; BMI 39.5
[2021-10-21 02:37] LABS: Appearance Urine HAZY; Color Urine YELLOW; Glucose Urine UA NEG (NEG); Leukocyte Esterase Urine NEG (NEG); Nitrite Urine NEG (NEG); PH 5.5 (5.0-8.0); Specific Gravity - Urine >= 1.030 (1.005-1.025); Urine Blood NEG (NEG); Urine Ketones NEG (NEG); Urine Protein TRACE MG/DL (NEG-TRACE)
[2021-10-21 02:52] LABS: COVID-19 Test Negative (Negative); IDNOW Serial# 9DD0AD1C
[2021-10-21 02:58] LABS: Amphetamine Screen Urine Not Detected (Not Detect); Barbiturates, Urine Not Detected (Not Detect); Benzodiazepines Screen Urine Not Detected (Not Detect); Cannabinoid Screen Urine Not Detected (Not Detect); Cocaine Screen Urine Not Detected (Not Detect); Fentanyl, urine Not Detected (Not Detect); Opiate Screen Urine Not Detected (Not Detect); Phencyclidine Screen Urine Not Detected (Not Detect)
[2021-10-21 03:08] LABS: Mucus Urine 4+ /LPF; RBC Urine 0 /HPF (0); Squamous Epithelial Cell Urine 4+ /LPF; WBC Urine 0 /HPF (0-4)
--- NOTE | 2021-10-21 06:18 | PC.NURSE ---
Patient slept through the night, no distress observed/reported, patient is not on any medication currently, patient reported she had been off her medication for over year now, patient is calm and quiet, behavior appropriate, [facility] referral completed/confirmed by Stephie, patient evaluated by N in the morning, VS at baseline, will continue to monitor.
--- NOTE | 2021-10-21 06:19 | ED.PSYCH ---
HPI - Psych General Chief Complaint: Psychiatric Symptoms Stated Complaint: crisis Source: patient Mode of arrival: EMS Limitations: no limitations History of Present Illness HPI Narrative: Patient with frequent psych admissions and ED visits with history of PTSD and bipolar disorder came by ambulance for increased depression having visual hallucinations which she had long-time ago in the past does not feel safe came here for evaluation. Patient denies any current substance abuse no headache no fever no COVID symptoms patient ready been vaccinated against COVID-19 Related Data Previous Rx's Medication Instructions Recorded albuterol sulfate 90 mcg/actuation 2 puff INHALATION QID PRN #1 g 09/14/21 aerosol inhaler fluticasone 232 mcg-salmeterol 14 1 inh INHALATION BID #1 ea 09/14/21 mcg/actuation breath activated powdr (AirDuo RespiClick) white petrolatum-mineral oil 1 appl TOPICAL TID #1 g 09/14/21 topical cream (Dermacerin) benztropine 1 mg tablet 1 mg PO BEDTIME #30 tab 10/12/21 cholecalciferol (vitamin D3) 25 25 mcg PO DAILY #30 tab 10/12/21 mcg (1,000 unit) tablet ferrous sulfate 324 mg (65 mg 324 mg PO DAILY #30 tab 10/12/21 iron) tablet,delayed release gabapentin 100 mg capsule 200 mg PO TID #180 cap 10/12/21 lithium carbonate 600 mg capsule 600 mg PO BID #60 cap 10/12/21 nicotine 21 mg/24 hr daily 21 mg TRANSDERMAL DAILY #30 ea 10/12/21 transdermal patch olanzapine 5 mg tablet 5 mg PO DAILY #30 tab 10/12/21 omeprazole 20 mg capsule,delayed 20 mg PO DAILY@0630 #30 cap 10/12/21 release prazosin 1 mg capsule 2 mg PO BEDTIME #60 cap 10/12/21 sertraline 50 mg tablet 50 mg PO DAILY #30 tab 10/12/21 trazodone 150 mg tablet 150 mg PO BEDTIME #30 tab 10/12/21 trolamine salicylate-aloe vera 10 1 appl TOPICAL TID PRN #1 g 10/12/21 % topical cream (Aspercreme with Aloe) valacyclovir 1 gram tablet 1,000 mg PO BID #60 tab 10/12/21 albuterol sulfate 90 mcg/actuation 2 puff INHALATION Q4-6H PRN #8.5 g 10/20/21 aerosol inhaler prednisone 50 mg tablet 50 mg PO DAILY #5 tab 10/20/21 Allergies Allergy/AdvReac Type Severity Reaction Status Date / Time aspirin [Aspirin] Allergy Severe HIVES,THROAT Verified 10/13/21 04:51 SWELLS bee pollen [BEE STINGS] Allergy Severe ANAPHYLAXIS Verified 10/13/21 04:51 diphenhydramine Allergy Severe hives, Verified 10/13/21 04:51 [From BENADRYL ALLERGY] throat swells Penicillins [PCN] Allergy Severe HIVES Verified 10/13/21 04:51 THROAT SWELLS Sulfa (Sulfonamide Allergy Intermediate HIVES Verified 10/13/21 04:51 Antibiotics) [SULFA (SULFONAMIDE ANTIBIOTICS)] tramadol [TRAMADOL] Allergy Intermediate ITCHING Verified 10/13/21 04:51 latex [LATEX] Allergy Unknown UNKNOWN Verified 10/13/21 04:51 penicillin G Allergy Unknown Unknown Verified 10/13/21 04:51 levofloxacin [From Levaquin] Allergy Hives Verified 10/13/21 04:51 bee stings Allergy Unknown Unknown Uncoded 10/13/21 04:51 DairyCare Allergy Unknown Unknown Uncoded 10/13/21 04:51 sulfa drugs Allergy Unknown Unknown Uncoded 10/13/21 04:51 Review of Systems Review of Systems: Yes all other systems are reviewed and are negative PMFSH Past Medical History Medical History Asthma exacerbation in COPD Bipolar disorder Bipolar I disorder Borderline personality disorder Borderline personality disorder COPD (chronic obstructive pulmonary disease) Depression Drug abuse Herpes Intermittent explosive disorder FABIOLA (obstructive sleep apnea) Post traumatic stress disorder (PTSD) PTSD (post-traumatic stress disorder) PTSD (post-traumatic stress disorder) Tobacco use Surgical History History of ankle surgery History of appendectomy History of back surgery Hx of cholecystectomy Family History Family History Mother COPD (chronic obstructive pulmonary disease) Social History Social History Household Members: None Household Members Other:: Pt states she hangs out with a male friend and a female friend Housing: Homeless Housing Other:: will be getting apartment 07/01 Do you presently have visiting nurse or other home services: No Unable to assess alcohol history related to: Unknown Alcohol intake: never Patient Tobacco Use Status: Current everyday Tobacco user Tobacco use type: Cigarette Cigarette Packs Per Day: 2 Cigarettes Per Day: 40.0 Years Smoked: 17 e-Cigarette/Vaping Use: Never Used Second Hand Smoke Exposure: Yes Substance Use Type: Crack/Cocaine Advance Directives: Yes Advance Directives on File: Yes Advance Directives Date on File: 12/24/20 Patient : No service: No Current occupational status: unemployed and disabled Sexual orientation: Straight/Heterosexual Physical Exam Vital Signs: Vital Signs: Last Vital Signs Temp 97 F 10/21/21 01:57 Pulse 105 H 10/21/21 01:57 Resp 16 10/21/21 01:57 BP 145/78 H 10/21/21 01:57 Pulse Ox 95 10/21/21 01:57 BMI result Body Mass Index 39.5 Appearance: Alert. Oriented X3. No acute distress. Eyes: PERRLA, No Nystagmus ENT: Pharynx normal. Oral Mucosa moist Neck: Normal inspection. Neck supple. CVS: Normal heart rate and rhythm. Pulses normal. Respiratory: No respiratory distress. Equal air entry bilateral, no wheezing/rales/rhonchi Abdomen: Soft and nontender. Bowel sounds are present, no mass palpable, no CVA tenderness Skin: Skin warm and dry. Normal skin color. Normal skin turgor. Extremities: No lower extremity edema. No calf tenderness Psych: Mood stable at this time no current suicidal ideation or homicidal feeling no delusions or hallucinations at this time Neuro: Oriented X 3. No motor deficit. No sensory deficit.No cerebellar signs , cranial nerves II-XII intact MDM - Psych MDM Narrative Medical decision making narrative: Patient to be seen by therapist for further evaluation possible admission Lab Data Attestation: I reviewed the patient's lab results. Labs: Lab Results 10/21/21 10/21/21 10/21/21 Range/Units 02:24 02:24 02:24 Urine Color YELLOW Urine Appearance HAZY Urine pH 5.5 (5.0-8.0) Ur Specific [place] >= 1.030 H (1.005-1.025) Urine Protein TRACE (NEG-TRACE) MG/DL Urine Glucose (UA) NEG (NEG) MG/DL Urine Ketones NEG (NEG) MG/DL Urine Blood NEG (NEG) Urine Nitrite NEG (NEG) Ur Leukocyte Esterase NEG (NEG) Urine RBC 0 (0) /HPF Urine WBC 0 (0-4) /HPF Ur Squamous Epith Cells 4+ /LPF Urine Bacteria NONE /LPF Urine Mucus 4+ /LPF Urine Opiates Screen Not Detected (Not Detect) Urine Fentanyl Screen Not Detected (Not Detect) Ur Barbiturates Screen Not Detected (Not Detect) Ur Phencyclidine Scrn Not Detected (Not Detect) Ur Amphetamines Screen Not Detected (Not Detect) U Benzodiazepines Scrn Not Detected (Not Detect) Urine Cocaine Screen Not Detected (Not Detect) U Marijuana (THC) Screen Not Detected (Not Detect) COVID-19 (ENDY) Negative (Negative) COVID-19 Clin Com See Note Discharge Plan Discharge Clinical Impression: PTSD (post-traumatic stress disorder) Bipolar disorder Qualifiers: Active/Remission status: currently active Current bipolar episode type: mixed Current episode severity: moderate Qualified Code(s): F31.62 - Bipolar disorder, current episode mixed, moderate Prescriptions: No Action albuterol sulfate 90 mcg/actuation HFA aerosol inhaler 2 puff inhalation Q4-6H PRN (Reason: shortness of breath or wheezing) Qty: 8.5 RF: 0 prednisone 50 mg tablet 50 mg PO DAILY Qty: 5 RF: 0 Dermacerin Cream 1 appl topical TID Qty: 1 RF: 0 albuterol sulfate 90 mcg/actuation HFA aerosol inhaler 2 puff inhalation QID PRN (Reason: wheezing) Qty: 1 RF: 0 fluticasone propion-salmeterol [AirDuo RespiClick] 232-14 mcg/actuation Aerosol Powdr Breath Activated 1 inh INHALATION BID Qty: 1 RF: 0 olanzapine 5 mg Tablet 5 mg PO DAILY Qty: 30 RF: 0 gabapentin 100 mg Capsule 200 mg PO TID Qty: 180 RF: 0 Aspercreme with Aloe 10 % Cream 1 appl topical TID PRN (Reason: neck pain) Qty: 1 RF: 0 valacyclovir 1 gram Tablet 1,000 mg PO BID Qty: 60 RF: 0 prazosin 1 mg Capsule 2 mg PO BEDTIME Qty: 60 RF: 0 lithium carbonate 600 mg Capsule 600 mg PO BID Qty: 60 RF: 0 trazodone 150 mg Tablet 150 mg PO BEDTIME Qty: 30 RF: 0 benztropine 1 mg Tablet 1 mg PO BEDTIME Qty: 30 RF: 0 nicotine 21 mg/24 hr Patch 24 Hour 21 mg transdermal DAILY Qty: 30 RF: 0 omeprazole 20 mg Capsule,Delayed Release(Dr/Ec) 20 mg PO DAILY@0630 Qty: 30 RF: 0 sertraline 50 mg Tablet 50 mg PO DAILY Qty: 30 RF: 0 cholecalciferol (vitamin D3) 25 mcg (1,000 unit) Tablet 25 mcg PO DAILY Qty: 30 RF: 0 ferrous sulfate 324 mg (65 mg iron) Tablet,Delayed Release (Dr/Ec) 324 mg PO DAILY Qty: 30 RF: 0
--- NOTE | 2021-10-21 07:20 | PC.NURSE ---
patient appeqars to remain asleep respirations are even and unlabored, patient appears in no distress
[2021-10-21 07:51] VITALS: BP 140/74; PULSE 85; RESP 15; TEMP 36.7; O2SAT 92
[2021-10-21 19:00] VITALS: BP 118/64; PULSE 95; RESP 20; TEMP 36.2; O2SAT 93
[2021-10-21 20:05] VITALS: BMI 40.5
[2021-10-21 21:15] LABS: Lithium < 0.10 mmol/L (0.60-1.20)
[2021-10-21] MEDS: Benztropine Mesylate 1 MG TABLET PO (21:54)
[2021-10-21] MEDS: traZODone HCL 50 MG TABLET 150 MG PO (22:34)
[2021-10-21] MEDS: Ibuprofen 600 MG TABLET PO (22:34)
[2021-10-21] MEDS: rOPINIRole HCL 0.5 MG TABLET PO (22:35)
[2021-10-21 22:40] VITALS: BP 99/54; PULSE 76; RESP 18; TEMP 36.6; O2SAT 93
[2021-10-21 22:42] VITALS: BP 99/54; PULSE 79
[2021-10-21] MEDS: Prazosin HCL 1 MG CAPSULE 2 MG PO (22:42)
--- NOTE | 2021-10-22 04:31 | PC.ADMIT ---
[place] [facility] [place] from [facility] at 18:52pm on 10/21/21. Patient recently [place] [facility] [place]21. Initially when asked when she was discharged last, she replied A couple of weeks ago, 2-3 weeks ago. Patient is ambulated with her own wheeled walker, which is swapped out with a hospital walker to meet unit safety needs. Patient is referred to unit by CARE team. She is known to CARE team and unit through multiple prior assessments, ED visits, and Inpatient stays. Pt presented to ED via EMS for increased depression and visual hallucinations and not feeling safe. She denies any current drug use. Tox screen is negative for all substances. Patient reports she has not been taking her medications since the 10/12/21 discharge as she never received her medications in the community. Patient reports she is homeless and sleeps on a bench in front of [place] and spends time in the [employer] drinking coffee and congregating with friends. Patient reports she has been attending her appointments, stating she enjoys working with her providers and feels she has a good relationship with them. Patient's physical and respiratory status are noted to have declined since last admission. Patient has notable wheezing, stating 91% on Room Air.
[2021-10-22 06:00] VITALS: BP 92/55; PULSE 67; RESP 18; TEMP 36.2; O2SAT 92
[2021-10-22] MEDS: Ibuprofen 600 MG TABLET PO (06:03)
[2021-10-22] MEDS: Omeprazole 20 MG CAPSULE.DR PO (06:04)
[2021-10-22] MEDS: Sertraline HCL 50 MG TABLET PO (08:28)
[2021-10-22] MEDS: Ferrous Sulfate 324 MG TABLET.DR PO (08:28)
[2021-10-22] MEDS: Lithium Carbonate 300 MG CAPSULE PO ×2 (08:28→21:05)
[2021-10-22] MEDS: Gabapentin 100 MG CAPSULE 200 MG PO ×2 (08:29→21:04)
[2021-10-22] MEDS: OLANZapine 5 MG TABLET PO ×2 (08:29→13:39)
[2021-10-22] MEDS: Cholecalciferol (Vitamin D3) 25 MCG TABLET PO (08:29)
[2021-10-22] MEDS: Nicotine 21 MG PATCH.TD24 TRANSDERMA (08:29)
[2021-10-22] MEDS: Albuterol Sulfate 90 MCG 8 GM INHALER 2 PUFF INHALE (08:31)
[2021-10-22] MEDS: Fluticasone Propionate 100 MCG BLST.W.DEV 1 PUFF INHALE ×2 (08:46→21:43)
[2021-10-22 09:00] LABS: Alanine Aminotransferase 19 U/L (0-31); Albumin Level 4.2 g/dL (3.5-5.0); Alkaline Phosphatase 74 U/L (39-117); Aspartate Amino Transferase 10 U/L (5-31); Bilirubin Direct < 0.2 mg/dL (0.0-0.5); Bilirubin Total 0.3 mg/dL (0.0-1.0); Magnesium 2.2 mg/dL (1.6-2.6); Total Protein 6.5 g/dL (6.5-8.0)
[2021-10-22 09:22] LABS: Free T4 (Free Thyroxine) 1.08 ng/dL (0.71-1.85); Thyroid Stimulating Hormone 3.05 uIU/mL (0.32-4.0)
[2021-10-22 09:41] LABS: Folate 9.6 ng/mL (> or = 4.0); Vitamin B12 389 pg/mL (200-900)
[2021-10-22 14:31] LABS: Glucose, Whole Blood 88 mg/dL (60-115)
[2021-10-22 14:33] VITALS: BP 134/72; PULSE 83; RESP 18; TEMP 36.9; O2SAT 94
--- NOTE | 2021-10-22 15:24 | P.EN_ITS ---
Event Note Date of Service: 10/22/21 Event Note: Called to see patient due to concern of word finding difficulty, a phasia, slurred speech and attending reporting change from baseline unclear onset of symptoms patient seen and examined with Dr. Cavazos awake, alert, answering questions appropriately, no slurred speech or aphasia noted. no focal neurological deficits noted. able to speak in full clear sentences. appeared somewhat paranoid reporting chronic right thigh discomfort and difficulty ambulating secondary to that. observed ambulating down hallway without difficulty with assistance of wheeled walker, left leg someone externally rotated during ambulation ?transient episode vs stress response, can obtain CT brain without contrast to rule out stroke case discussed with Dr. Cavazos
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
[2021-10-22 18:00] VITALS: BP 141/80; PULSE 80; RESP 16; TEMP 36.3
[2021-10-22] MEDS: traZODone HCL 50 MG TABLET 150 MG PO (21:04)
[2021-10-22 21:05] VITALS: BP 141/80; PULSE 80
[2021-10-22] MEDS: Prazosin HCL 1 MG CAPSULE 2 MG PO (21:05)
[2021-10-22] MEDS: rOPINIRole HCL 0.5 MG TABLET PO (21:05)
[2021-10-22] MEDS: Benztropine Mesylate 1 MG TABLET PO (21:05)
[2021-10-23 06:00] VITALS: BP 120/63; PULSE 84; RESP 16; TEMP 36.4; O2SAT 95
[2021-10-23] MEDS: Omeprazole 20 MG CAPSULE.DR PO (06:02)
[2021-10-23] MEDS: Ibuprofen 600 MG TABLET PO ×2 (06:51→21:58)
[2021-10-23] MEDS: Fluticasone Propionate 100 MCG BLST.W.DEV 1 PUFF INHALE ×2 (08:10→21:57)
[2021-10-23] MEDS: Gabapentin 100 MG CAPSULE 200 MG PO ×2 (08:10→21:58)
[2021-10-23] MEDS: OLANZapine 5 MG TABLET PO ×2 (08:11→21:58)
[2021-10-23] MEDS: Cholecalciferol (Vitamin D3) 25 MCG TABLET PO (08:11)
[2021-10-23] MEDS: Ferrous Sulfate 324 MG TABLET.DR PO (08:11)
[2021-10-23] MEDS: Sertraline HCL 50 MG TABLET PO (08:11)
[2021-10-23] MEDS: Lithium Carbonate 300 MG CAPSULE PO ×2 (08:11→21:59)
[2021-10-23] MEDS: Nicotine 21 MG PATCH.TD24 TRANSDERMA (08:19)
--- NOTE | 2021-10-23 12:38 | PM.NEUROCN ---
History of Present Illness Data of Consult Service Date: 10/23/21 Primary Care Provider: Unknown Physician HPI Reason for consult: Difficulty speaking 51 years old woman admitted on psychiatric floor I was asked to see for difficulty speaking. She said that she was in usual state of health sitting talking to people and watching television when her speech became slurred. She noted that her throat and tongue were also very dry. She was able to say what she wanted to say but apparently speech was somewhat slurred. She said that this whole episode lasted for Hoffa day. There was no associated symptoms such as headache numbness paralysis or weakness. There was no visual symptom. She was still feeling that her throat was somewhat dry. This type of symptom has not happened before. PMFSH Past Medical History Medical History Asthma exacerbation in COPD Bipolar disorder Bipolar I disorder Borderline personality disorder Borderline personality disorder COPD (chronic obstructive pulmonary disease) Depression Drug abuse Herpes Intermittent explosive disorder FABIOLA (obstructive sleep apnea) Post traumatic stress disorder (PTSD) PTSD (post-traumatic stress disorder) PTSD (post-traumatic stress disorder) Tobacco use Family History Family History Mother COPD (chronic obstructive pulmonary disease) Surgical History Surgical History History of ankle surgery History of appendectomy History of back surgery Hx of cholecystectomy Social History Social History Household Members: None Household Members Other:: Pt states she hangs out with a male friend and a female friend Housing: Homeless Housing Other:: will be getting apartment 07/01 Do you presently have visiting nurse or other home services: No Unable to assess alcohol history related to: Unknown Alcohol intake: never Patient Tobacco Use Status: Current everyday Tobacco user Tobacco use type: Cigarette Cigarette Packs Per Day: 2 Cigarettes Per Day: 40.0 Years Smoked: 17 Smoked in Last 30 Days: Yes e-Cigarette/Vaping Use: Never Used Patient Interested in Nicotine Replacement: Yes Patient Given Instructions on How to Stop Smoking: Yes Date Education Initiated: 10/21/21 Second Hand Smoke Exposure: Yes Use of substances other than those prescribed or required for medical reasons: No Substance Use Type: Crack/Cocaine Currently Displaying Signs/Symptoms of Drug Intoxication Withdrawal: No Any prior treatment program specific to substance use: No Have you been hit, kicked, punched, or otherwise hurt by someone within the past year? If so, by whom?: No Do you feel safe in your current relationship?: No Is there a partner from a previous relationship who is making you feel unsafe now?: No Are you made to feel afraid or neglected: No Advance Directives: Yes Advance Directives on File: Yes Advance Directives Date on File: 12/24/20 Healthcare Proxy: Yes Guardian: No Do you have thoughts of harming others: None Do you have a plan to hurt others: No Plan Recently lost weight without trying: No Nutrition Risks: No Nutritional Risk Patient : No : No Poor oral hygiene: No service: No Current occupational status: unemployed and disabled Sexual orientation: Did not discuss Meds Allergies Allergy/AdvReac Type Severity Reaction Status Date / Time aspirin [Aspirin] Allergy Severe HIVES,THROAT Verified 10/13/21 04:51 SWELLS bee pollen [BEE STINGS] Allergy Severe ANAPHYLAXIS Verified 10/13/21 04:51 diphenhydramine Allergy Severe hives, Verified 10/13/21 04:51 [From BENADRYL ALLERGY] throat swells Penicillins [PCN] Allergy Severe HIVES Verified 10/13/21 04:51 THROAT SWELLS Sulfa (Sulfonamide Allergy Intermediate HIVES Verified 10/13/21 04:51 Antibiotics) [SULFA (SULFONAMIDE ANTIBIOTICS)] tramadol [TRAMADOL] Allergy Intermediate ITCHING Verified 10/13/21 04:51 latex [LATEX] Allergy Unknown UNKNOWN Verified 10/13/21 04:51 penicillin G Allergy Unknown Unknown Verified 10/13/21 04:51 levofloxacin [From Levaquin] Allergy Hives Verified 10/13/21 04:51 bee stings Allergy Unknown Unknown Uncoded 10/13/21 04:51 DairyCare Allergy Unknown Unknown Uncoded 10/13/21 04:51 sulfa drugs Allergy Unknown Unknown Uncoded 10/13/21 04:51 Active Medications: Current Medications Acetaminophen (Acetaminophen 325 Mg Tablet) 650 mg PO Q6H PRN PRN Reason: Headache/Pain Mild Scale (1-3) Al Hydroxide/Mg Hydroxide (Magnesium Hydrox/Alum Hydrox 30 Ml Oral.Susp) 30 ml PO Q6H PRN PRN Reason: Heartburn/Nausea Albuterol Sulfate (Albuterol Sulfate 90 Mcg 8 Gm Inhaler) 2 puff INHALE Q6H PRN PRN Reason: asthma Last Admin: 10/22/21 08:31 Dose: 2 puff Documented by: Benztropine Mesylate (Benztropine Mesylate 1 Mg Tablet) 1 mg PO BEDTIME [facility] Last Admin: 10/22/21 21:05 Dose: 1 mg Documented by: Ferrous Sulfate (Ferrous Sulfate 324 Mg Tablet.) 324 mg PO DAILY [facility] Last Admin: 10/23/21 08:11 Dose: 324 mg Documented by: Fluticasone Propionate (Fluticasone Propionate 100 Mcg Blst.W.Dev) 1 puff INHALE RBID [facility] Last Admin: 10/23/21 08:10 Dose: 1 puff Documented by: Gabapentin (Gabapentin 100 Mg Capsule) 200 mg PO TID [facility] Last Admin: 10/23/21 08:10 Dose: 200 mg Documented by: Ibuprofen (Ibuprofen 600 Mg Tablet) 600 mg PO Q6H PRN PRN Reason: mod-severe pain Last Admin: 10/23/21 06:51 Dose: 600 mg Documented by: [place] Carbonate ([place] Carbonate 300 Mg Capsule) 300 mg PO BID [facility] Last Admin: 10/23/21 08:11 Dose: 300 mg Documented by: Magnesium Hydroxide (Milk Of Magnesia 30 Ml Oral.Susp) 30 ml PO DAILY PRN PRN Reason: Constipation Nicotine (Nicotine 21 Mg Patch.Td24) 21 mg TRANSDERMA DAILY [facility] Last Admin: 10/23/21 08:19 Dose: 21 mg Documented by: Olanzapine (Olanzapine 5 Mg Tablet) 5 mg PO DAILY [facility] Last Admin: 10/23/21 08:11 Dose: 5 mg Documented by: Olanzapine (Olanzapine 5 Mg Tablet) 5 mg PO Q8H PRN PRN Reason: Agitation Omeprazole (Omeprazole 20 Mg Capsule.) 20 mg PO DAILY@0630 [facility] Last Admin: 10/23/21 06:02 Dose: 20 mg Documented by: Prazosin HCl (Prazosin Hcl 1 Mg Capsule) 2 mg PO BEDTIME [facility]; Protocol Last Admin: 10/22/21 21:05 Dose: 2 mg Documented by: Ropinirole HCl (Ropinirole Hcl 0.5 Mg Tablet) 0.5 mg PO BEDTIME [facility] Last Admin: 10/22/21 21:05 Dose: 0.5 mg Documented by: Sertraline HCl (Sertraline Hcl 50 Mg Tablet) 50 mg PO DAILY [facility] Last Admin: 10/23/21 08:11 Dose: 50 mg Documented by: Trazodone HCl (Trazodone Hcl 50 Mg Tablet) 150 mg PO BEDTIME [facility] Last Admin: 10/22/21 21:04 Dose: 150 mg Documented by: Valacyclovir HCl (Valacycyclovir Hcl 1,000 Mg Tablet) 1,000 mg PO Q12H [facility] Last Admin: 10/23/21 08:16 Dose: 1,000 mg Documented by: Vitamin D (Cholecalciferol (Vitamin D3) 25 Mcg Tablet) 25 mcg PO DAILY [facility] Last Admin: 10/23/21 08:11 Dose: 25 mcg Documented by: Physical Exam Vital Signs: Vital Signs: Last Vital Signs Temp 97.6 F 10/23/21 06:00 Pulse 84 10/23/21 06:00 Resp 16 10/23/21 06:00 BP 120/63 10/23/21 06:00 Pulse Ox 95 10/23/21 06:00 BMI result Body Mass Index 40.5 Neuro: Other: She was alert and awake with normal spontaneity of speech fluency comprehension and affect. She was able to name and repeat. Speech was normal. Face was symmetrical. Tongue was midline and somewhat dry. There was no focal weakness and plantars were flexor. Results ABG Interpretation: Her noncontrast head CT was unremarkable. I also noted that this was her 5th CT scan of brain this year. Assessment and Plan (1) Slurred speech: Status: Acute 51 years old woman who reported slurring of speech with dryness of throat and tongue while she was watching television talking to people, which lasted for half a day. Examination now was unremarkable. She had a head CT done that was unremarkable and I also noted that this was her [address] this year. Psychosomatic some seems more likely etiology of her problem other than slurred speech related to throat dryness. Procedures Date of Service Date of Service: 10/23/21
--- NOTE | 2021-10-23 16:51 | HO.PSYCHPN ---
Subjective Subjective Date of Service: 10/23/21 Reason For Visit: SI, Depression Interim History: Patient seen and discussed with team. Patient evaluated this morning and upon interview she reports she still feels a little confused, has been sleeping too much, more than ryan ever slept. Says I dont have any energy. Also reports that the face mask on her CPAP is too small, has not been effective. She has noticed some stuttering today, however this was not observed during interview. Asks why she is on cogentin, im not restless. Continues to report perceptual disturbances, I see things and I hear things, still sees people walking around but I cant make out their faces and hears voices telling me jump off tall bridge or building. Says the perceptual disturbances bother her and last occurred today. Mood is up and down, says she was sitting in the kitchen and felt pissed but I didn't know who i was mad at. In the milieu, patient is safe and appropriate in behavior. Denies SI/SIB/HI upon inquiry. Says she feels safe. Medication Compliance: Yes Side effects from medications: Yes Attending Groups: Yes Review of Systems Acute medical concerns: No Medical Review of Systems: unchanged Mental Status Exam Mental Status Exam Narrative: Pt is alert and oriented; behavior is cooperative, calmer today and attentive in interview; dressed in casual attire, unkempt but with adequate hygiene; mood is described as up and down and affect congruent; eye contact appropriate; no aphasia-like symptoms noticed during interview today; not pressured; no psychomotor agitation/retardation present; thought process is goal directed, able to answer questions appropriately; Thought content is on medications and treatment; Denies SI; no HI; Recent c/o A/VH;? Patients insight and judgment appear impaired. Diagnostics Vital Signs (24Hr): Vital Signs - 24 hr 10/25/21 18:00 10/25/21 22:06 10/26/21 06:00 Temperature 97.6 F 97.1 F Pulse Rate 82 82 69 Respiratory Rate 16 18 Blood Pressure 138/88 138/88 108/59 L Pulse Oximetry 94 92 BMI result Body Mass Index 40.5 Imaging Radiology Impressions: ITS Impressions Chest X-Ray 10/21/21 23:10 IMPRESSION: Unremarkable examination. Head CT 10/22/21 16:17 IMPRESSION: No acute intracranial pathology. Medications Medications Current Medications Acetaminophen (Acetaminophen 325 Mg Tablet) 650 mg PO Q6H PRN PRN Reason: Headache/Pain Mild Scale (1-3) Last Admin: 10/24/21 17:04 Dose: 650 mg Documented by: Al Hydroxide/Mg Hydroxide (Magnesium Hydrox/Alum Hydrox 30 Ml Oral.Susp) 30 ml PO Q6H PRN PRN Reason: Heartburn/Nausea Albuterol Sulfate (Albuterol Sulfate 90 Mcg 8 Gm Inhaler) 2 puff INHALE Q6H PRN PRN Reason: asthma Last Admin: 10/22/21 08:31 Dose: 2 puff Documented by: Ferrous Sulfate (Ferrous Sulfate 324 Mg Tablet.) 324 mg PO DAILY [facility] Last Admin: 10/26/21 08:44 Dose: 324 mg Documented by: Fluticasone Propionate (Fluticasone Propionate 100 Mcg Blst.W.Dev) 1 puff INHALE RBID [facility] Last Admin: 10/26/21 08:44 Dose: 1 puff Documented by: Gabapentin (Gabapentin 100 Mg Capsule) 200 mg PO BID [facility] Last Admin: 10/26/21 08:45 Dose: 200 mg Documented by: Hydroxyzine HCl (Hydroxyzine Hcl 25 Mg Tablet) 25 mg PO Q6H PRN PRN Reason: anxiety Last Admin: 10/25/21 19:17 Dose: 25 mg Documented by: Ibuprofen (Ibuprofen 600 Mg Tablet) 600 mg PO Q6H PRN PRN Reason: mod-severe pain Last Admin: 10/25/21 22:06 Dose: 600 mg Documented by: [place] Carbonate ([place] Carbonate 300 Mg Capsule) 300 mg PO BID [facility] Last Admin: 10/26/21 08:45 Dose: 300 mg Documented by: Magnesium Hydroxide (Milk Of Magnesia 30 Ml Oral.Susp) 30 ml PO DAILY PRN PRN Reason: Constipation Nicotine (Nicotine 21 Mg Patch.Td24) 21 mg TRANSDERMA DAILY [facility] Last Admin: 10/26/21 08:43 Dose: 21 mg Documented by: Olanzapine (Olanzapine 5 Mg Tablet) 5 mg PO Q8H PRN PRN Reason: Agitation Last Admin: 10/25/21 09:13 Dose: 5 mg Documented by: Olanzapine (Olanzapine 5 Mg Tablet) 5 mg PO BEDTIME [facility] Last Admin: 10/25/21 22:06 Dose: 5 mg Documented by: Omeprazole (Omeprazole 20 Mg Capsule.) 20 mg PO DAILY@0630 [facility] Last Admin: 10/26/21 06:32 Dose: 20 mg Documented by: Prazosin HCl (Prazosin Hcl 1 Mg Capsule) 2 mg PO BEDTIME [facility]; Protocol Last Admin: 10/25/21 22:06 Dose: 2 mg Documented by: Ropinirole HCl (Ropinirole Hcl 0.5 Mg Tablet) 0.5 mg PO BEDTIME [facility] Last Admin: 10/25/21 22:06 Dose: 0.5 mg Documented by: Sertraline HCl (Sertraline Hcl 50 Mg Tablet) 50 mg PO DAILY [facility] Last Admin: 10/26/21 08:44 Dose: 50 mg Documented by: Trazodone HCl (Trazodone Hcl 50 Mg Tablet) 50 mg PO BEDTIME [facility] Last Admin: 10/25/21 22:05 Dose: 50 mg Documented by: Valacyclovir HCl (Valacycyclovir Hcl 1,000 Mg Tablet) 1,000 mg PO Q12H [facility] Last Admin: 10/26/21 08:45 Dose: 1,000 mg Documented by: Vitamin D (Cholecalciferol (Vitamin D3) 25 Mcg Tablet) 25 mcg PO DAILY [facility] Last Admin: 10/26/21 08:45 Dose: 25 mcg Documented by: Allergies Allergies Allergy/AdvReac Type Severity Reaction Status Date / Time aspirin [Aspirin] Allergy Severe HIVES,THROAT Verified 10/13/21 04:51 SWELLS bee pollen [BEE STINGS] Allergy Severe ANAPHYLAXIS Verified 10/13/21 04:51 diphenhydramine Allergy Severe hives, Verified 10/13/21 04:51 [From BENADRYL ALLERGY] throat swells Penicillins [PCN] Allergy Severe HIVES Verified 10/13/21 04:51 THROAT SWELLS Sulfa (Sulfonamide Allergy Intermediate HIVES Verified 10/13/21 04:51 Antibiotics) [SULFA (SULFONAMIDE ANTIBIOTICS)] tramadol [TRAMADOL] Allergy Intermediate ITCHING Verified 10/13/21 04:51 latex [LATEX] Allergy Unknown UNKNOWN Verified 10/13/21 04:51 penicillin G Allergy Unknown Unknown Verified 10/13/21 04:51 levofloxacin [From Levaquin] Allergy Hives Verified 10/13/21 04:51 bee stings Allergy Unknown Unknown Uncoded 10/13/21 04:51 DairyCare Allergy Unknown Unknown Uncoded 10/13/21 04:51 sulfa drugs Allergy Unknown Unknown Uncoded 10/13/21 04:51 Assessment & Plan Assessment & Plan (1) Bipolar disorder: Qualifiers: Active/Remission status: currently active Current bipolar episode type: mixed Current episode severity: moderate Qualified Code(s): F31.62 - Bipolar disorder, current episode mixed, moderate Status: Acute Code(s): F31.9 - Bipolar disorder, unspecified (2) PTSD (post-traumatic stress disorder): Status: Acute Code(s): F43.10 - Post-traumatic stress disorder, unspecified (3) Borderline personality disorder: Status: Acute Code(s): F60.3 - Borderline personality disorder (4) Cocaine use disorder: Status: Acute Code(s): F14.10 - Cocaine abuse, uncomplicated Assessment and Plan: Patient is a 51-year-old female with history of PTSD, bipolar and substance abuse who was recently discharged 10 days ago and self presents for worsening depression and AVH off of her medications, however has remained sober.? On initial exam, patient is a poor historian.? She soon went off her medications once discharged; depression worsened and then she says she had visual hallucinations which she has not had an years; patient felt suicidal with plan to jump off bridge so she self presented.? Meeting with patient, she appeared confused, with aphasia-like symptoms, having a hard time speaking in full sentences, articulating her words and with word finding. Not at baseline functioning. She knew her name but? said her date was (instead of 01/03/2070), did not recognize web content writer whom she knows or social services specialist whom she knows well.? Patient said that she was feeling scared because of her feelings of confusion and struggles speaking.? Actuarial Manager did focused neurological exam that was otherwise unremarkable Extraocular muscles intact Pupils equally round and reactive to light/accommodation Cranial nerves 2-12 grossly intact Strength 5/5 bilaterally Negative cerebellar symptoms (to finger to nose; nix to nix) Patient discussed with hospitalist who evaluated and was observed by both web content writer, hospitalist and hospitalist PA to have intermittent aphasia-like symptoms prompting hospitalist to recommended head CT which was completed and negative for intracranial pathology.? TIA remains rule out.? Of note, patient has presented like similarly in the past, but to a much lesser degree, when she is emotionally dysregulated and this remains a strong possibility. 10/23: Pt is presenting as less confused today, no aphasia noted. She reports daytime somnolence. Will have respiratory come to see if pt needs different size CPAP mask. Will change zyprexa to bedtime due to daytime sedation. Will lower trazodone to 50 mg with repeat dose, as pt reports this is adequate for her and she does not typically need 150 mg. Will discontinue cogentin, as pt is unsure why is is on it, denies akathesia. Will decrease gabapentin to 200 mg BID, as pt is reporting daytime sedation and its possible she may be having cognitive SE from medication.? PLAN: Patient on CV Q 5 minute checks 1. Intermittent confusion/aphasia-like symptoms:? TIA versus emotionally dysregulated response Neurologic exam otherwise negative Head CT negative Discussed with on-call provider who will continue to assess for any neurologic deficits 2. Mood disorder Patient is only been off her medications for a little over a week Restart lithium at 300 mg b.i.d.; will likely titrate to home dose Otherwise restart home medications Nursing supervisor throwing department okayed patient's own wheelchair I spent minutes with the patient and/or on the patient floor today, greater than?50% of which was spent counseling/coordinating care. Reason for contiued inpatient stay Substantial Risk for: harm to self, rapid decompensation and med/psych decompensation
[2021-10-23 18:00] VITALS: BP 132/63; PULSE 97
[2021-10-23] MEDS: rOPINIRole HCL 0.5 MG TABLET PO (21:58)
[2021-10-23 21:59] VITALS: BP 127/68; PULSE 89
[2021-10-23] MEDS: Prazosin HCL 1 MG CAPSULE 2 MG PO (21:59)
[2021-10-23] MEDS: traZODone HCL 50 MG TABLET PO (21:59)
[2021-10-24 06:00] VITALS: BP 129/55; PULSE 93; RESP 18; TEMP 36.6; O2SAT 95
[2021-10-24] MEDS: Omeprazole 20 MG CAPSULE.DR PO (08:26)
[2021-10-24] MEDS: Fluticasone Propionate 100 MCG BLST.W.DEV 1 PUFF INHALE ×2 (08:26→23:05)
[2021-10-24] MEDS: Lithium Carbonate 300 MG CAPSULE PO ×2 (08:26→19:43)
[2021-10-24] MEDS: Cholecalciferol (Vitamin D3) 25 MCG TABLET PO (08:26)
[2021-10-24] MEDS: Sertraline HCL 50 MG TABLET PO (08:26)
[2021-10-24] MEDS: Ferrous Sulfate 324 MG TABLET.DR PO (08:26)
[2021-10-24] MEDS: Gabapentin 100 MG CAPSULE 200 MG PO ×2 (08:26→19:42)
[2021-10-24] MEDS: Nicotine 21 MG PATCH.TD24 TRANSDERMA (08:28)
[2021-10-24] MEDS: Ibuprofen 600 MG TABLET PO ×2 (08:47→23:02)
--- NOTE | 2021-10-24 16:00 | P.PNPSI_ITS ---
Subjective Subjective Date of Service: 10/24/21 Reason For Visit: SI, Depression Interim History: Patient seen and discussed with team. Patient evaluated this morning and upon interview she reports she slept well last night and slept in. Still feels a little tired, trying to stay up so she can improve her sleep hygiene. Says I need something for anxiety and that not long ago I wanted to punch two women up here, says there are two female peers who have had attitude with her. Mood is up and down. Per pt, when i get angry, i dont feel safe because i know what i can do. Denies SI/SIB/HI upon inquiry. Says she feels safe. Medication Compliance: Yes Side effects from medications: No Attending Groups: Yes Review of Systems Acute medical concerns: No Medical Review of Systems: unchanged Mental Status Exam Mental Status Exam Narrative: ?Pt is alert and oriented; behavior is cooperative, calmer today and attentive in interview; dressed in casual attire, unkempt but with adequate hygiene; mood is described as up and down and affect congruent; eye contact appropriate; no aphasia-like symptoms noticed during interview today; not pressured; no psychomotor agitation/retardation present; thought process is goal directed, able to answer questions appropriately; Thought content is on medications and treatment; Denies SI; no HI; Recent c/o A/VH;? Patients insight and judgment appear impaired. Diagnostics Vital Signs (24Hr): Vital Signs - 24 hr 10/25/21 18:00 10/25/21 22:06 10/26/21 06:00 Temperature 97.6 F 97.1 F Pulse Rate 82 82 69 Respiratory Rate 16 18 Blood Pressure 138/88 138/88 108/59 L Pulse Oximetry 94 92 BMI result Body Mass Index 40.5 Imaging Radiology Impressions: ITS Impressions Chest X-Ray 10/21/21 23:10 IMPRESSION: Unremarkable examination. Head CT 10/22/21 16:17 IMPRESSION: No acute intracranial pathology. Medications Medications Current Medications Acetaminophen (Acetaminophen 325 Mg Tablet) 650 mg PO Q6H PRN PRN Reason: Headache/Pain Mild Scale (1-3) Last Admin: 10/24/21 17:04 Dose: 650 mg Documented by: Al Hydroxide/Mg Hydroxide (Magnesium Hydrox/Alum Hydrox 30 Ml Oral.Susp) 30 ml PO Q6H PRN PRN Reason: Heartburn/Nausea Albuterol Sulfate (Albuterol Sulfate 90 Mcg 8 Gm Inhaler) 2 puff INHALE Q6H PRN PRN Reason: asthma Last Admin: 10/22/21 08:31 Dose: 2 puff Documented by: Ferrous Sulfate (Ferrous Sulfate 324 Mg Tablet.) 324 mg PO DAILY [facility] Last Admin: 10/26/21 08:44 Dose: 324 mg Documented by: Fluticasone Propionate (Fluticasone Propionate 100 Mcg Blst.W.Dev) 1 puff INHALE RBID [facility] Last Admin: 10/26/21 08:44 Dose: 1 puff Documented by: Gabapentin (Gabapentin 100 Mg Capsule) 200 mg PO BID [facility] Last Admin: 10/26/21 08:45 Dose: 200 mg Documented by: Hydroxyzine HCl (Hydroxyzine Hcl 25 Mg Tablet) 25 mg PO Q6H PRN PRN Reason: anxiety Last Admin: 10/25/21 19:17 Dose: 25 mg Documented by: Ibuprofen (Ibuprofen 600 Mg Tablet) 600 mg PO Q6H PRN PRN Reason: mod-severe pain Last Admin: 10/25/21 22:06 Dose: 600 mg Documented by: [place] Carbonate ([place] Carbonate 300 Mg Capsule) 300 mg PO BID [facility] Last Admin: 10/26/21 08:45 Dose: 300 mg Documented by: Magnesium Hydroxide (Milk Of Magnesia 30 Ml Oral.Susp) 30 ml PO DAILY PRN PRN Reason: Constipation Nicotine (Nicotine 21 Mg Patch.Td24) 21 mg TRANSDERMA DAILY [facility] Last Admin: 10/26/21 08:43 Dose: 21 mg Documented by: Olanzapine (Olanzapine 5 Mg Tablet) 5 mg PO Q8H PRN PRN Reason: Agitation Last Admin: 10/25/21 09:13 Dose: 5 mg Documented by: Olanzapine (Olanzapine 5 Mg Tablet) 5 mg PO BEDTIME [facility] Last Admin: 10/25/21 22:06 Dose: 5 mg Documented by: Omeprazole (Omeprazole 20 Mg Capsule.) 20 mg PO DAILY@0630 [facility] Last Admin: 10/26/21 06:32 Dose: 20 mg Documented by: Prazosin HCl (Prazosin Hcl 1 Mg Capsule) 2 mg PO BEDTIME [facility]; Protocol Last Admin: 10/25/21 22:06 Dose: 2 mg Documented by: Ropinirole HCl (Ropinirole Hcl 0.5 Mg Tablet) 0.5 mg PO BEDTIME [facility] Last Admin: 10/25/21 22:06 Dose: 0.5 mg Documented by: Sertraline HCl (Sertraline Hcl 50 Mg Tablet) 50 mg PO DAILY [facility] Last Admin: 10/26/21 08:44 Dose: 50 mg Documented by: Trazodone HCl (Trazodone Hcl 50 Mg Tablet) 50 mg PO BEDTIME [facility] Last Admin: 10/25/21 22:05 Dose: 50 mg Documented by: Valacyclovir HCl (Valacycyclovir Hcl 1,000 Mg Tablet) 1,000 mg PO Q12H [facility] Last Admin: 10/26/21 08:45 Dose: 1,000 mg Documented by: Vitamin D (Cholecalciferol (Vitamin D3) 25 Mcg Tablet) 25 mcg PO DAILY [facility] Last Admin: 10/26/21 08:45 Dose: 25 mcg Documented by: Allergies Allergies Allergy/AdvReac Type Severity Reaction Status Date / Time aspirin [Aspirin] Allergy Severe HIVES,THROAT Verified 10/13/21 04:51 SWELLS bee pollen [BEE STINGS] Allergy Severe ANAPHYLAXIS Verified 10/13/21 04:51 diphenhydramine Allergy Severe hives, Verified 10/13/21 04:51 [From BENADRYL ALLERGY] throat swells Penicillins [PCN] Allergy Severe HIVES Verified 10/13/21 04:51 THROAT SWELLS Sulfa (Sulfonamide Allergy Intermediate HIVES Verified 10/13/21 04:51 Antibiotics) [SULFA (SULFONAMIDE ANTIBIOTICS)] tramadol [TRAMADOL] Allergy Intermediate ITCHING Verified 10/13/21 04:51 latex [LATEX] Allergy Unknown UNKNOWN Verified 10/13/21 04:51 penicillin G Allergy Unknown Unknown Verified 10/13/21 04:51 levofloxacin [From Levaquin] Allergy Hives Verified 10/13/21 04:51 bee stings Allergy Unknown Unknown Uncoded 10/13/21 04:51 DairyCare Allergy Unknown Unknown Uncoded 10/13/21 04:51 sulfa drugs Allergy Unknown Unknown Uncoded 10/13/21 04:51 Assessment & Plan Assessment & Plan (1) Bipolar disorder: Qualifiers: Active/Remission status: currently active Current bipolar episode type: mixed Current episode severity: moderate Qualified Code(s): F31.62 - Bipolar disorder, current episode mixed, moderate Status: Acute Code(s): F31.9 - Bipolar disorder, unspecified (2) PTSD (post-traumatic stress disorder): Status: Acute Code(s): F43.10 - Post-traumatic stress disorder, unspecified (3) Borderline personality disorder: Status: Acute Code(s): F60.3 - Borderline personality disorder (4) Cocaine use disorder: Status: Acute Code(s): F14.10 - Cocaine abuse, uncomplicated Assessment and Plan: Patient is a 51-year-old female with history of PTSD, bipolar and substance abuse who was recently discharged 10 days ago and self presents for worsening depression and AVH off of her medications, however has remained sober.? On initial exam, patient is a poor historian.? She soon went off her medications once discharged; depression worsened and then she says she had visual hallucinations which she has not had an years; patient felt suicidal with plan to jump off bridge so she self presented.? Meeting with patient, she appeared confused, with aphasia-like symptoms, having a hard time speaking in full sentences, articulating her words and with word finding. Not at baseline functioning. She knew her name but? said her date was (instead of 01/03/2070), did not recognize justowriter operator whom she knows or social work instructor whom she knows well.? Patient said that she was feeling scared because of her feelings of confusion and struggles speaking.? Safety Equipment Tester did focused neurological exam that was otherwise unremarkable Extraocular muscles intact Pupils equally round and reactive to light/accommodation Cranial nerves 2-12 grossly intact Strength 5/5 bilaterally Negative cerebellar symptoms (to finger to nose; nix to nix) Patient discussed with hospitalist who evaluated and was observed by both justowriter operator, hospitalist and hospitalist PA to have intermittent aphasia-like symptom s prompting hospitalist to recommended head CT which was completed and negative for intracranial pathology.? TIA remains rule out.? Of note, patient has presented like similarly in the past, but to a much lesser degree, when she is emotionally dysregulated and this remains a strong possibility. 10/23: Pt is presenting as less confused today, no aphasia noted. She reports daytime somnolence. Will have respiratory come to see if pt needs different size CPAP mask. Will change zyprexa to bedtime due to daytime sedation. Will lower trazodone to 50 mg with repeat dose, as pt reports this is adequate for her and she does not typically need 150 mg. Will discontinue cogentin, as pt is unsure why is is on it, denies akathesia. Will decrease gabapentin to 200 mg BID, as pt is reporting daytime sedation and its possible she may be having cognitive SE from medication.? 10/24: Pt appears less confused today, no aphasia, steady when ambulates with walker. Advocates for a PRN for agitation, anxiety. Says she has been on vistaril in the past and denies SE (despite reporting SE on benadryl), will re- trail at 25 mg Q6H PRN and monitor for benefit. PLAN: Patient on CV Q 5 minute checks 1. Intermittent confusion/aphasia-like symptoms:? TIA versus emotionally dysregulated response Neurologic exam otherwise negative Head CT negative Discussed with on-call provider who will continue to assess for any neurologic deficits 2. Mood disorder Patient is only been off her medications for a little over a week Restart lithium at 300 mg b.i.d.; will likely titrate to home dose Otherwise restart home medications Nursing drying room supervisor okayed patient's own wheelchair I spent minutes with the patient and/or on the patient floor today, greater than?50% of which was spent counseling/coordinating care. Reason for contiued inpatient stay Substantial Risk for: harm to self, rapid decompensation and med/psych decompensation
[2021-10-24] MEDS: Acetaminophen 325 MG TABLET 650 MG PO (17:04)
[2021-10-24] MEDS: OLANZapine 5 MG TABLET PO (19:43)
[2021-10-24] MEDS: traZODone HCL 50 MG TABLET PO (23:03)
[2021-10-24 23:04] VITALS: BP 137/65; PULSE 81
[2021-10-24] MEDS: Prazosin HCL 1 MG CAPSULE 2 MG PO (23:04)
[2021-10-24] MEDS: rOPINIRole HCL 0.5 MG TABLET PO (23:04)
[2021-10-25 06:00] VITALS: BP 116/70; PULSE 83; RESP 16; TEMP 36.7; O2SAT 93
[2021-10-25] MEDS: Omeprazole 20 MG CAPSULE.DR PO (07:43)
[2021-10-25] MEDS: Ibuprofen 600 MG TABLET PO ×2 (07:43→22:06)
[2021-10-25] MEDS: Fluticasone Propionate 100 MCG BLST.W.DEV 1 PUFF INHALE ×2 (08:44→22:14)
[2021-10-25] MEDS: Cholecalciferol (Vitamin D3) 25 MCG TABLET PO (08:44)
[2021-10-25] MEDS: Nicotine 21 MG PATCH.TD24 TRANSDERMA (08:44)
[2021-10-25] MEDS: Lithium Carbonate 300 MG CAPSULE PO ×2 (08:44→22:06)
[2021-10-25] MEDS: Ferrous Sulfate 324 MG TABLET.DR PO (08:44)
[2021-10-25] MEDS: Gabapentin 100 MG CAPSULE 200 MG PO ×2 (08:44→22:06)
[2021-10-25] MEDS: Sertraline HCL 50 MG TABLET PO (08:45)
[2021-10-25] MEDS: OLANZapine 5 MG TABLET PO ×2 (09:13→22:06)
[2021-10-25] MEDS: hydrOXYzine HCL 25 MG TABLET PO ×2 (09:13→19:17)
--- NOTE | 2021-10-25 16:05 | HO.PSYCHPN ---
Subjective Subjective Date of Service: 10/25/21 Reason For Visit: SI, Depression Interim History: Patient seen and discussed with team. 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 Sleep is good, still tired but says she feels better since respiratory adjusted her CPAP mask. She also may be tired due to utilizing PRN vistaril and zyprexa for agitation, anxiety, says the meds are keeping me out of trouble. Appetite is good. Other than psychosocial stressors on the unit, pt says she is in a good place and staying in my room to stay out of trouble. In the milieu, patient is safe and appropriate in behavior. Denies SI/SIB/HI upon inquiry. Says she feels safe. Medication Compliance: Yes Side effects from medications: No Attending Groups: Yes Review of Systems Acute medical concerns: No Medical Review of Systems: unchanged Mental Status Exam Mental Status Exam Narrative: Pt is alert and oriented; behavior is cooperative, calm, and attentive in interview; dressed in casual attire, unkempt but with adequate hygiene; mood is described as up and down, affect is euthymic, can be irritable at times but redirectable; eye contact appropriate; no aphasia-like symptoms noticed during interview today; not pressured; no psychomotor agitation/retardation present; thought process is goal directed, able to answer questions appropriately; Thought content is on medications and treatment; Denies SI; no HI; Recent c/o A/VH;? Patients insight and judgment appear impaired. Diagnostics Vital Signs (24Hr): Vital Signs - 24 hr 10/25/21 18:00 10/25/21 22:06 10/26/21 06:00 Temperature 97.6 F 97.1 F Pulse Rate 82 82 69 Respiratory Rate 16 18 Blood Pressure 138/88 138/88 108/59 L Pulse Oximetry 94 92 BMI result Body Mass Index 40.5 Imaging Radiology Impressions: ITS Impressions Chest X-Ray 10/21/21 23:10 IMPRESSION: Unremarkable examination. Head CT 10/22/21 16:17 IMPRESSION: No acute intracranial pathology. Medications Medications Current Medications Acetaminophen (Acetaminophen 325 Mg Tablet) 650 mg PO Q6H PRN PRN Reason: Headache/Pain Mild Scale (1-3) Last Admin: 10/24/21 17:04 Dose: 650 mg Documented by: Al Hydroxide/Mg Hydroxide (Magnesium Hydrox/Alum Hydrox 30 Ml Oral.Susp) 30 ml PO Q6H PRN PRN Reason: Heartburn/Nausea Albuterol Sulfate (Albuterol Sulfate 90 Mcg 8 Gm Inhaler) 2 puff INHALE Q6H PRN PRN Reason: asthma Last Admin: 10/22/21 08:31 Dose: 2 puff Documented by: Ferrous Sulfate (Ferrous Sulfate 324 Mg Tablet.) 324 mg PO DAILY [facility] Last Admin: 10/26/21 08:44 Dose: 324 mg Documented by: Fluticasone Propionate (Fluticasone Propionate 100 Mcg Blst.W.Dev) 1 puff INHALE RBID [facility] Last Admin: 10/26/21 08:44 Dose: 1 puff Documented by: Gabapentin (Gabapentin 100 Mg Capsule) 200 mg PO BID [facility] Last Admin: 10/26/21 08:45 Dose: 200 mg Documented by: Hydroxyzine HCl (Hydroxyzine Hcl 25 Mg Tablet) 25 mg PO Q6H PRN PRN Reason: anxiety Last Admin: 10/25/21 19:17 Dose: 25 mg Documented by: Ibuprofen (Ibuprofen 600 Mg Tablet) 600 mg PO Q6H PRN PRN Reason: mod-severe pain Last Admin: 10/25/21 22:06 Dose: 600 mg Documented by: [place] Carbonate ([place] Carbonate 300 Mg Capsule) 300 mg PO BID [facility] Last Admin: 10/26/21 08:45 Dose: 300 mg Documented by: Magnesium Hydroxide (Milk Of Magnesia 30 Ml Oral.Susp) 30 ml PO DAILY PRN PRN Reason: Constipation Nicotine (Nicotine 21 Mg Patch.Td24) 21 mg TRANSDERMA DAILY [facility] Last Admin: 10/26/21 08:43 Dose: 21 mg Documented by: Olanzapine (Olanzapine 5 Mg Tablet) 5 mg PO Q8H PRN PRN Reason: Agitation Last Admin: 10/25/21 09:13 Dose: 5 mg Documented by: Olanzapine (Olanzapine 5 Mg Tablet) 5 mg PO BEDTIME [facility] Last Admin: 10/25/21 22:06 Dose: 5 mg Documented by: Omeprazole (Omeprazole 20 Mg Capsule.) 20 mg PO DAILY@0630 [facility] Last Admin: 10/26/21 06:32 Dose: 20 mg Documented by: Prazosin HCl (Prazosin Hcl 1 Mg Capsule) 2 mg PO BEDTIME [facility]; Protocol Last Admin: 10/25/21 22:06 Dose: 2 mg Documented by: Ropinirole HCl (Ropinirole Hcl 0.5 Mg Tablet) 0.5 mg PO BEDTIME [facility] Last Admin: 10/25/21 22:06 Dose: 0.5 mg Documented by: Sertraline HCl (Sertraline Hcl 50 Mg Tablet) 50 mg PO DAILY [facility] Last Admin: 10/26/21 08:44 Dose: 50 mg Documented by: Trazodone HCl (Trazodone Hcl 50 Mg Tablet) 50 mg PO BEDTIME [facility] Last Admin: 10/25/21 22:05 Dose: 50 mg Documented by: Valacyclovir HCl (Valacycyclovir Hcl 1,000 Mg Tablet) 1,000 mg PO Q12H [facility] Last Admin: 10/26/21 08:45 Dose: 1,000 mg Documented by: Vitamin D (Cholecalciferol (Vitamin D3) 25 Mcg Tablet) 25 mcg PO DAILY [facility] Last Admin: 10/26/21 08:45 Dose: 25 mcg Documented by: Allergies Allergies Allergy/AdvReac Type Severity Reaction Status Date / Time aspirin [Aspirin] Allergy Severe HIVES,THROAT Verified 10/13/21 04:51 SWELLS bee pollen [BEE STINGS] Allergy Severe ANAPHYLAXIS Verified 10/13/21 04:51 diphenhydramine Allergy Severe hives, Verified 10/13/21 04:51 [From BENADRYL ALLERGY] throat swells Penicillins [PCN] Allergy Severe HIVES Verified 10/13/21 04:51 THROAT SWELLS Sulfa (Sulfonamide Allergy Intermediate HIVES Verified 10/13/21 04:51 Antibiotics) [SULFA (SULFONAMIDE ANTIBIOTICS)] tramadol [TRAMADOL] Allergy Intermediate ITCHING Verified 10/13/21 04:51 latex [LATEX] Allergy Unknown UNKNOWN Verified 10/13/21 04:51 penicillin G Allergy Unknown Unknown Verified 10/13/21 04:51 levofloxacin [From Levaquin] Allergy Hives Verified 10/13/21 04:51 bee stings Allergy Unknown Unknown Uncoded 10/13/21 04:51 DairyCare Allergy Unknown Unknown Uncoded 10/13/21 04:51 sulfa drugs Allergy Unknown Unknown Uncoded 10/13/21 04:51 Assessment & Plan Assessment & Plan (1) Bipolar disorder: Qualifiers: Active/Remission status: currently active Current bipolar episode type: mixed Current episode severity: moderate Qualified Code(s): F31.62 - Bipolar disorder, current episode mixed, moderate Status: Acute Code(s): F31.9 - Bipolar disorder, unspecified (2) PTSD (post-traumatic stress disorder): Status: Acute Code(s): F43.10 - Post-traumatic stress disorder, unspecified (3) Borderline personality disorder: Status: Acute Code(s): F60.3 - Borderline personality disorder (4) Cocaine use disorder: Status: Acute Code(s): F14.10 - Cocaine abuse, uncomplicated Assessment and Plan: Patient is a 51-year-old female with history of PTSD, bipolar and substance abuse who was recently discharged 10 days ago and self presents for worsening depression and AVH off of her medications, however has remained sober.? On initial exam, patient is a poor historian.? She soon went off her medications once discharged; depression worsened and then she says she had visual hallucinations which she has not had an years; patient felt suicidal with plan to jump off bridge so she self presented.? Meeting with patient, she appeared confused, with aphasia-like symptoms, having a hard time speaking in full sentences, articulating her words and with word finding. Not at baseline functioning. She knew her name but? said her date was (instead of 01/03/2070), did not recognize journalists and other writers whom she knows or social media community manager whom she knows well.? Patient said that she was feeling scared because of her feelings of confusion and struggles speaking.? Controls Designer did focused neurological exam that was otherwise unremarkable Extraocular muscles intact Pupils equally round and reactive to light/accommodation Cranial nerves 2-12 grossly intact Strength 5/5 bilaterally Negative cerebellar symptoms (to finger to nose; nix to nix) Patient discussed with hospitalist who evaluated and was observed by both journalists and other writers, hospitalist and hospitalist PA to have intermittent aphasia-like symptoms prompting hospitalist to recommended head CT which was completed and negative for intracranial pathology.? TIA remains rule out.? Of note, patient has presented like similarly in the past, but to a much lesser degree, when she is emotionally dysregulated and this remains a strong possibility. 10/23: Pt is presenting as less confused today, no aphasia noted. She reports daytime somnolence. Will have respiratory come to see if pt needs different size CPAP mask. Will change zyprexa to bedtime due to daytime sedation. Will lower trazodone to 50 mg with repeat dose, as pt reports this is adequate for her and she does not typically need 150 mg. Will discontinue cogentin, as pt is unsure why is is on it, denies akathesia. Will decrease gabapentin to 200 mg BID, as pt is reporting daytime sedation and its possible she may be having cognitive SE from medication.? 10/24: Pt appears less confused today, no aphasia, steady when ambulates with walker. Advocates for a PRN for agitation, anxiety. Says she has been on vistaril in the past and denies SE (despite reporting SE on benadryl), will re-trail at 25 mg Q6H PRN and monitor for benefit. 10/25: irritable but utilizing PRNs with good effect, no med changes made today PLAN: Patient on CV Q 5 minute checks 1. Intermittent confusion/aphasia-like symptoms:? TIA versus emotionally dysregulated response Neurologic exam otherwise negative Head CT negative Discussed with on-call provider who will continue to assess for any neurologic deficits 2. Mood disorder Patient is only been off her medications for a little over a week Restart lithium at 300 mg b.i.d.; will likely titrate to home dose Otherwise restart home medications Nursing rubbish collection supervisor okayed patient's own wheelchair I spent minutes with the patient and/or on the patient floor today, greater than?50% of which was spent counseling/coordinating care. Reason for contiued inpatient stay Substantial Risk for: rapid decompensation and med/psych decompensation
[2021-10-25 18:00] VITALS: BP 138/88; PULSE 82; RESP 16; TEMP 36.4; O2SAT 94
[2021-10-25] MEDS: traZODone HCL 50 MG TABLET PO (22:05)
[2021-10-25 22:06] VITALS: BP 138/88; PULSE 82
[2021-10-25] MEDS: rOPINIRole HCL 0.5 MG TABLET PO (22:06)
[2021-10-25] MEDS: Prazosin HCL 1 MG CAPSULE 2 MG PO (22:06)
[2021-10-26 06:00] VITALS: BP 108/59; PULSE 69; RESP 18; TEMP 36.2; O2SAT 92
[2021-10-26] MEDS: Omeprazole 20 MG CAPSULE.DR PO (06:32)
[2021-10-26] MEDS: Nicotine 21 MG PATCH.TD24 TRANSDERMA (08:43)
[2021-10-26] MEDS: Ferrous Sulfate 324 MG TABLET.DR PO (08:44)
[2021-10-26] MEDS: Fluticasone Propionate 100 MCG BLST.W.DEV 1 PUFF INHALE ×2 (08:44→21:31)
[2021-10-26] MEDS: Sertraline HCL 50 MG TABLET PO (08:44)
[2021-10-26] MEDS: Gabapentin 100 MG CAPSULE 200 MG PO ×2 (08:45→21:25)
[2021-10-26] MEDS: Cholecalciferol (Vitamin D3) 25 MCG TABLET PO (08:45)
[2021-10-26] MEDS: Lithium Carbonate 300 MG CAPSULE PO ×2 (08:45→20:11)
--- NOTE | 2021-10-26 12:46 | P.PNPSI_ITS ---
Subjective Subjective Date of Service: 10/26/21 Reason For Visit: SI, Depression Interim History: Patient reports that she is doing much better. She said that her mood is good and she denies any SI or HI. She still sees visual hallucinations about once a day however they are fleeting and are possibly illusions rather than hallucinations as yesterday stating outside the nurse's station she thought she saw a woman sitting there with glasses and then did a double take only to find no one there; she said they are getting much less frequent than on admission. She reports she had similar VH a long time ago but none since. Patient says that she is grateful for the help to get a [facility] bed and hopefully into a custodial. She agreed that in the past she has not really wanted this type of placement but now she says I am getting old.. . More disabled...I can't live on my own anymore. Machine Feeder Floorperson reviewed history of manic type episodes; she has had distinct episodes including times during sobriety, where she was without sleep for at least 5 days, talking fast, mind racing and grandiose thinking such that she was God; dangerous activities, fights with police, paranoid ideations. Patient complains of some mild tingling all of her distal fingertips, bilaterally which she said started last night. She reports this is never happened before. Diagnostics Vital Signs (24Hr): Vital Signs - 24 hr 10/25/21 18:00 10/25/21 22:06 10/26/21 06:00 Temperature 97.6 F 97.1 F Pulse Rate 82 82 69 Respiratory Rate 16 18 Blood Pressure 138/88 138/88 108/59 L Pulse Oximetry 94 92 BMI result Body Mass Index 40.5 Imaging Radiology Impressions: ITS Impressions Chest X-Ray 10/21/21 23:10 IMPRESSION: Unremarkable examination. Head CT 10/22/21 16:17 IMPRESSION: No acute intracranial pathology. Medications Medications Current Medications Acetaminophen (Acetaminophen 325 Mg Tablet) 650 mg PO Q6H PRN PRN Reason: Headache/Pain Mild Scale (1-3) Last Admin: 10/24/21 17:04 Dose: 650 mg Documented by: Al Hydroxide/Mg Hydroxide (Magnesium Hydrox/Alum Hydrox 30 Ml Oral.Susp) 30 ml PO Q6H PRN PRN Reason: Heartburn/Nausea Albuterol Sulfate (Albuterol Sulfate 90 Mcg 8 Gm Inhaler) 2 puff INHALE Q6H PRN PRN Reason: asthma Last Admin: 10/22/21 08:31 Dose: 2 puff Documented by: Ferrous Sulfate (Ferrous Sulfate 324 Mg Tablet.) 324 mg PO DAILY [facility] BEDS AT [facility] Last Admin: 10/26/21 08:44 Dose: 324 mg Documented by: Fluticasone Propionate (Fluticasone Propionate 100 Mcg Blst.W.Dev) 1 puff INHALE RBID [facility]S [facility]CLUDE 234 BEDS AT [facility] Last Admin: 10/26/21 08:44 Dose: 1 puff Documented by: Gabapentin (Gabapentin 100 Mg Capsule) 200 mg PO BID [facility] 234 BEDS AT [facility] Last Admin: 10/26/21 08:45 Dose: 200 mg Documented by: Hydroxyzine HCl (Hydroxyzine Hcl 25 Mg Tablet) 25 mg PO Q6H PRN PRN Reason: anxiety Last Admin: 10/25/21 19:17 Dose: 25 mg Documented by: Ibuprofen (Ibuprofen 600 Mg Tablet) 600 mg PO Q6H PRN PRN Reason: mod-severe pain Last Admin: 10/25/21 22:06 Dose: 600 mg Documented by: [place] Carbonate ([place] Carbonate 300 Mg Capsule) 300 mg PO BID [facility] 234 BEDS AT [facility] Last Admin: 10/26/21 08:45 Dose: 300 mg Documented by: Magnesium Hydroxide (Milk Of Magnesia 30 Ml Oral.Susp) 30 ml PO DAILY PRN PRN Reason: Constipation Nicotine (Nicotine 21 Mg Patch.Td24) 21 mg TRANSDERMA DAILY [facility] 234 BEDS AT [facility] Last Admin: 10/26/21 08:43 Dose: 21 mg Documented by: Olanzapine (Olanzapine 5 Mg Tablet) 5 mg PO Q8H PRN PRN Reason: Agitation Last Admin: 10/25/21 09:13 Dose: 5 mg Documented by: Olanzapine (Olanzapine 5 Mg Tablet) 5 mg PO BEDTIME [facility] 234 [facility]S AT [facility] Last Admin: 10/25/21 22:06 Dose: 5 mg Documented by: Omeprazole (Omeprazole 20 Mg Capsule.) 20 mg PO DAILY@0630 [facility] 234 BEDS AT [facility] Last Admin: 10/26/21 06:32 Dose: 20 mg Documented by: Prazosin HCl (Prazosin Hcl 1 Mg Capsule) 2 mg PO BEDTIME [facility] 234 BEDS AT [facility]; Protocol Last Admin: 10/25/21 22:06 Dose: 2 mg Documented by: Ropinirole HCl (Ropinirole Hcl 0.5 Mg Tablet) 0.5 mg PO BEDTIME [facility] 234 BEDS AT [facility] Last Admin: 10/25/21 22:06 Dose: 0.5 mg Documented by: Sertraline HCl (Sertraline Hcl 50 Mg Tablet) 50 mg PO DAILY [facility] 234 B[facility]S AT [facility] Last Admin: 10/26/21 08:44 Dose: 50 mg Documented by: Trazodone HCl (Trazodone Hcl 50 Mg Tablet) 50 mg PO BEDTIME [facility] 234 BEDS AT [facility] Last Admin: 10/25/21 22:05 Dose: 50 mg Documented by: Valacyclovir HCl (Valacycyclovir Hcl 1,000 Mg Tablet) 1,000 mg PO Q12H [facility]S [facility]CLUDE 234 BEDS AT [facility] Last Admin: 10/26/21 08:45 Dose: 1,000 mg Documented by: Vitamin D (Cholecalciferol (Vitamin D3) 25 Mcg Tablet) 25 mcg PO DAILY [facility] 234 BEDS AT [facility] Last Admin: 10/26/21 08:45 Dose: 25 mcg Documented by: Allergies Allergies Allergy/AdvReac Type Severity Reaction Status Date / Time aspirin [Aspirin] Allergy Severe HIVES,THROAT Verified 10/13/21 04:51 SWELLS bee pollen [BEE STINGS] Allergy Severe ANAPHYLAXIS Verified 10/13/21 04:51 diphenhydramine Allergy Severe hives, Verified 10/13/21 04:51 [From BENADRYL ALLERGY] throat swells Penicillins [PCN] Allergy Severe HIVES Verified 10/13/21 04:51 THROAT SWELLS Sulfa (Sulfonamide Allergy Intermediate HIVES Verified 10/13/21 04:51 Antibiotics) [SULFA (SULFONAMIDE ANTIBIOTICS)] tramadol [TRAMADOL] Allergy Intermediate ITCHING Verified 10/13/21 04:51 latex [LATEX] Allergy Unknown UNKNOWN Verified 10/13/21 04:51 penicillin G Allergy Unknown Unknown Verified 10/13/21 04:51 levofloxacin [From Levaquin] Allergy Hives Verified 10/13/21 04:51 bee stings Allergy Unknown Unknown Uncoded 10/13/21 04:51 DairyCare Allergy Unknown Unknown Uncoded 10/13/21 04:51 sulfa drugs Allergy Unknown Unknown Uncoded 10/13/21 04:51 Assessment & Plan Assessment & Plan (1) Bipolar disorder: Qualifiers: Active/Remission status: currently active Current bipolar episode type: mixed Current episode severity: moderate Qualified Code(s): F31.62 - Bipolar disorder, current episode mixed, moderate Status: Acute Code(s): F31.9 - Bipolar disorder, unspecified (2) PTSD (post-traumatic stress disorder): Status: Acute Code(s): F43.10 - Post-traumatic stress disorder, unspecified (3) Borderline personality disorder: Status: Acute Code(s): F60.3 - Borderline personality disorder (4) Cocaine use disorder: Status: Acute Code(s): F14.10 - Cocaine abuse, uncomplicated Assessment and Plan: in sustained remission Assessment and Plan: Patient is a 51-year-old female with history of PTSD, bipolar and substance abuse who was recently discharged 10 days ago and self presents for worsening depression and AVH off of her medications, however has remained sober.? On initial exam, patient is a poor historian.? She soon went off her medications once discharged; depression worsened and then she says she had visual dowd ucinations which she has not had an years; patient felt suicidal with plan to jump off bridge so she self presented.? Meeting with patient, she appeared confused, with aphasia-like symptoms, having a hard time speaking in full sentences, articulating her words and with word finding. Not at baseline functioning. She knew her name but? said her date was (instead of 01/03/2070), did not recognize senior medical writer whom she knows or social work nurse whom she knows well.? Patient said that she was feeling scared because of her feelings of confusion and struggles speaking.? Machine Feeder Floorperson did focused neurological exam that was otherwise unremarkable Extraocular muscles intact Pupils equally round and reactive to light/accommodation Cranial nerves 2-12 grossly intact Strength 5/5 bilaterally Negative cerebellar symptoms (to finger to nose; nix to nix) Patient discussed with hospitalist who evaluated and was observed by both senior medical writer, hospitalist and hospitalist PA to have intermittent aphasia-like symptoms prompting hospitalist to recommended head CT which was completed and negative for intracranial pathology.? TIA remains rule out.? Of note, patient has presented like similarly in the past, but to a much lesser degree, when she is emotionally dysregulated and this remains a strong possibility. 10/23: Pt is presenting as less confused today, no aphasia noted. She reports daytime somnolence. Will have respiratory come to see if pt needs different size CPAP mask. Will change zyprexa to bedtime due to daytime sedation. Will lower trazodone to 50 mg with repeat dose, as pt reports this is adequate for her and she does not typically need 150 mg. Will discontinue cogentin, as pt is unsure why is is on it, denies akathesia. Will decrease gabapentin to 200 mg BID, as pt is reporting daytime sedation and its possible she may be having cognitive SE from medication.? 10/24: Pt appears less confused today, no aphasia, steady when ambulates with walker. Advocates for a PRN for agitation, anxiety. Says she has been on vistaril in the past and denies SE (despite reporting SE on benadryl), will re- trail at 25 mg Q6H PRN and monitor for benefit. 10/25: irritable but utilizing PRNs with good effect, no med changes made today 10/26 -Patient complains of some mild tingling all of her distal fingertips, bilaterally which she said started last night. She reports this is never happened before. -patient's lithium has been at 300 mg b.i.d.; will get labs and titrate to home dose if subtherapeutic given history of bipolar disorder PLAN: Patient on CV Q 5 minute checks 1. Intermittent confusion/aphasia-like symptoms:?resolved and most likely due to emotionally dysregulated response Neurologic exam otherwise negative Head CT negative Neurology consulted and report most likely psychosomatic 2. Mood disorder Patient is only been off her medications for a little over a week lithium at 300 mg b.i.d.; will get labs and likely titrate to home dose Otherwise restart home medications Nursing customer service supervisor okayed patient's own wheelchair I spent minutes with the patient and/or on the patient floor today, greater than?50% of which was spent counseling/coordinating care. Reason for contiued inpatient stay Substantial Risk for: rapid decompensation
[2021-10-26 18:00] VITALS: BP 117/61; PULSE 89; RESP 16; TEMP 36.2; O2SAT 94
[2021-10-26] MEDS: hydrOXYzine HCL 25 MG TABLET PO (18:31)
[2021-10-26] MEDS: OLANZapine 5 MG TABLET PO ×2 (20:11→21:29)
[2021-10-26] MEDS: Ibuprofen 600 MG TABLET PO (20:34)
[2021-10-26 21:28] VITALS: BP 117/61; PULSE 87
[2021-10-26] MEDS: Prazosin HCL 1 MG CAPSULE 2 MG PO (21:28)
[2021-10-26] MEDS: traZODone HCL 50 MG TABLET PO (21:29)
[2021-10-26] MEDS: rOPINIRole HCL 0.5 MG TABLET PO (21:29)
[2021-10-27 06:00] VITALS: BP 110/72; PULSE 81; TEMP 36.4; O2SAT 93
[2021-10-27] MEDS: Nicotine 21 MG PATCH.TD24 TRANSDERMA (08:36)
[2021-10-27] MEDS: Fluticasone Propionate 100 MCG BLST.W.DEV 1 PUFF INHALE ×2 (08:36→22:49)
[2021-10-27] MEDS: Cholecalciferol (Vitamin D3) 25 MCG TABLET PO (08:37)
[2021-10-27] MEDS: Gabapentin 100 MG CAPSULE 200 MG PO ×2 (08:37→22:06)
[2021-10-27] MEDS: Sertraline HCL 50 MG TABLET PO (08:37)
[2021-10-27] MEDS: Omeprazole 20 MG CAPSULE.DR PO (08:37)
[2021-10-27] MEDS: Ferrous Sulfate 324 MG TABLET.DR PO (08:37)
[2021-10-27] MEDS: Lithium Carbonate 300 MG CAPSULE PO ×2 (08:38→12:08)
[2021-10-27 09:02] LABS: Lithium 0.41 mmol/L (0.60-1.20)
[2021-10-27 09:07] LABS: Anion Gap 14 (12-20); Carbon Dioxide 29 mmol/L (22-29); Chloride 102 mmol/L (96-108); Potassium 4.5 mmol/L (3.3-5.1); Sodium 140 mmol/L (135-145)
[2021-10-27] MEDS: hydrOXYzine HCL 25 MG TABLET PO ×2 (11:08→20:29)
[2021-10-27] MEDS: OLANZapine 5 MG TABLET PO ×2 (11:11→22:06)
[2021-10-27] MEDS: Albuterol Sulfate 90 MCG 8 GM INHALER 2 PUFF INHALE (12:06)
--- NOTE | 2021-10-27 15:33 | P.PNPSI_ITS ---
Subjective Subjective Date of Service: 10/27/21 Reason For Visit: SI, Depression Interim History: pt lying in bed resting, but awake. pt reports her mood remains better and she continues to deny SI. Abstract Maker discussed subtherapeutic lithium level and she agrees to increase [place] to her home dose of 600mg BID. Early today pt had another bout of confusion reported by SW and then Nurse, both of whom know patient well. It resolved on its own. Abstract Maker asked about this to which patient said agreed that she did get confused earlier today. She says she does not know why, but says somethings not right... Abstract Maker discussed case with Dr. Reynolds who recommends carotid ultrasound, although TIA unlikely given no focal deficits, as well as EEG to rule out complex partial seizure Mental Status Exam Mental Status Exam Narrative: ?Pt is alert and oriented; behavior is cooperative, calm, resting on bed; dressed in casual attire, unkempt but with adequate hygiene; mood is described as ok affect is euthymic; eye contact appropriate; speech normal rate, rhythm, prosody, volume; not pressured; no psychomotor agitation/retardation present; thought process is goal directed and linear; Thought content is on what's causing confusion; also on treatment; Denies SI/HI; Recent c/o A/VH;? Patients insight and judgment appear impaired but adequate. Diagnostics Vital Signs (24Hr): Vital Signs - 24 hr 10/26/21 18:00 10/26/21 21:28 10/27/21 06:00 Temperature 97.1 F 97.5 F Pulse Rate 89 87 81 Respiratory Rate 16 Blood Pressure 117/61 117/61 110/72 Pulse Oximetry 94 93 BMI result Body Mass Index 40.5 Labs Results: 10/27/21 08:03 Labs: Laboratory Results - last 48 hr 10/27/21 10/27/21 08:03 08:03 Sodium 140 Potassium 4.5 Chloride 102 Carbon Dioxide 29 Anion Gap 14 [place] 0.41 L Imaging Radiology Impressions: ITS Impressions Chest X-Ray 10/21/21 23:10 IMPRESSION: Unremarkable examination. Head CT 10/22/21 16:17 IMPRESSION: No acute intracranial pathology. Medications Medications Current Medications Acetaminophen (Acetaminophen 325 Mg Tablet) 650 mg PO Q6H PRN PRN Reason: Headache/Pain Mild Scale (1-3) Last Admin: 10/24/21 17:04 Dose: 650 mg Documented by: Al Hydroxide/Mg Hydroxide (Magnesium Hydrox/Alum Hydrox 30 Ml Oral.Susp) 30 ml PO Q6H PRN PRN Reason: Heartburn/Nausea Albuterol Sulfate (Albuterol Sulfate 90 Mcg 8 Gm Inhaler) 2 puff INHALE Q6H PRN PRN Reason: asthma Last Admin: 10/27/21 12:06 Dose: 2 puff Documented by: Ferrous Sulfate (Ferrous Sulfate 324 Mg Tablet.) 324 mg PO DAILY [facility] Last Admin: 10/27/21 08:37 Dose: 324 mg Documented by: Fluticasone Propionate (Fluticasone Propionate 100 Mcg Blst.W.Dev) 1 puff INHALE RBID [facility] Last Admin: 10/27/21 08:36 Dose: 1 puff Documented by: Gabapentin (Gabapentin 100 Mg Capsule) 200 mg PO BID [facility] Last Admin: 10/27/21 08:37 Dose: 200 mg Documented by: Hydroxyzine HCl (Hydroxyzine Hcl 25 Mg Tablet) 25 mg PO Q6H PRN PRN Reason: anxiety Last Admin: 10/27/21 11:08 Dose: 25 mg Documented by: Ibuprofen (Ibuprofen 600 Mg Tablet) 600 mg PO Q6H PRN PRN Reason: mod-severe pain Last Admin: 10/26/21 20:34 Dose: 600 mg Documented by: [place] Carbonate ([place] Carbonate 300 Mg Capsule) 600 mg PO BID [facility] Magnesium Hydroxide (Milk Of Magnesia 30 Ml Oral.Susp) 30 ml PO DAILY PRN PRN Reason: Constipation Nicotine (Nicotine 21 Mg Patch.Td24) 21 mg TRANSDERMA DAILY [facility] Last Admin: 10/27/21 08:36 Dose: 21 mg Documented by: Olanzapine (Olanzapine 5 Mg Tablet) 5 mg PO Q8H PRN PRN Reason: Agitation Last Admin: 10/27/21 11:11 Dose: 5 mg Documented by: Olanzapine (Olanzapine 5 Mg Tablet) 5 mg PO BEDTIME [facility] Last Admin: 10/26/21 21:29 Dose: 5 mg Documented by: Omeprazole (Omeprazole 20 Mg Capsule.) 20 mg PO DAILY@0630 [facility] Last Admin: 10/27/21 08:37 Dose: 20 mg Documented by: Prazosin HCl (Prazosin Hcl 1 Mg Capsule) 2 mg PO BEDTIME [facility]; Protocol Last Admin: 10/26/21 21:28 Dose: 2 mg Documented by: Ropinirole HCl (Ropinirole Hcl 0.5 Mg Tablet) 0.5 mg PO BEDTIME [facility] Last Admin: 10/26/21 21:29 Dose: 0.5 mg Documented by: Sertraline HCl (Sertraline Hcl 50 Mg Tablet) 50 mg PO DAILY [facility] Last Admin: 10/27/21 08:37 Dose: 50 mg Documented by: Trazodone HCl (Trazodone Hcl 50 Mg Tablet) 50 mg PO BEDTIME [facility] Last Admin: 10/26/21 21:29 Dose: 50 mg Documented by: Valacyclovir HCl (Valacycyclovir Hcl 1,000 Mg Tablet) 1,000 mg PO Q12H [facility] Last Admin: 10/27/21 08:37 Dose: 1,000 mg Documented by: Vitamin D (Cholecalciferol (Vitamin D3) 25 Mcg Tablet) 25 mcg PO DAILY [facility] Last Admin: 10/27/21 08:37 Dose: 25 mcg Documented by: Allergies Allergies Allergy/AdvReac Type Severity Reaction Status Date / Time aspirin [Aspirin] Allergy Severe HIVES,THROAT Verified 10/13/21 04:51 SWELLS bee pollen [BEE STINGS] Allergy Severe ANAPHYLAXIS Verified 10/13/21 04:51 diphenhydramine Allergy Severe hives, Verified 10/13/21 04:51 [From BENADRYL ALLERGY] throat swells Penicillins [PCN] Allergy Severe HIVES Verified 10/13/21 04:51 THROAT SWELLS Sulfa (Sulfonamide Allergy Intermediate HIVES Verified 10/13/21 04:51 Antibiotics) [SULFA (SULFONAMIDE ANTIBIOTICS)] tramadol [TRAMADOL] Allergy Intermediate ITCHING Verified 10/13/21 04:51 latex [LATEX] Allergy Unknown UNKNOWN Verified 10/13/21 04:51 penicillin G Allergy Unknown Unknown Verified 10/13/21 04:51 levofloxacin [From Levaquin] Allergy Hives Verified 10/13/21 04:51 bee stings Allergy Unknown Unknown Uncoded 10/13/21 04:51 D[employer]Care Allergy Unknown Unknown Uncoded 10/13/21 04:51 sulfa drugs Allergy Unknown Unknown Uncoded 10/13/21 04:51 Assessment & Plan Assessment & Plan (1) Bipolar disorder: Qualifiers: Active/Remission status: currently active Current bipolar episode type: mixed Current episode severity: moderate Qualified Code(s): F31.62 - Bipolar disorder, current episode mixed, moderate Status: Acute Code(s): F31.9 - Bipolar disorder, unspecified (2) PTSD (post-traumatic stress disorder): Status: Acute Code(s): F43.10 - Post-traumatic stress disorder, unspecified (3) Borderline personality disorder: Status: Acute Code(s): F60.3 - Borderline personality disorder (4) Cocaine use disorder: Status: Acute Code(s): F14.10 - Cocaine abuse, uncomplicated Assessment and Plan: in sustained remission Assessment and Plan: Patient is a 51-year-old female with history of PTSD, bipolar and substance abuse who was recently discharged 10 days ago and self presents for worsening depression and AVH off of her medications, however has remained sober.? On initial exam, patient is a poor historian.? She soon went off her medications once discharged; depression worsened and then she says she had visual hallucinations which she has not had an years; patient felt suicidal with plan to jump off bridge so she self presented.? Meeting with patient, she appeared confused, with aphasia-like symptoms, having a hard time speaking in full sentences, articulating her words and with word finding. Not at baseline functioning. She knew her name but? said her date was (instead of 01/03/2070), did not recognize pattern chart writer whom she knows or manager social whom she knows well.? Patient said that she was feeling scared because of her feelings of confusion and struggles speaking.? Abstract Maker did focused neurological exam that was otherwise unremarkable Extraocular muscles intact Pupils equally round and reactive to light/accommodation Cranial nerves 2-12 grossly intact Strength 5/5 bilaterally Negative cerebellar symptoms (to finger to nose; nix to nix) Patient discussed with hospitalist who evaluated and was observed by both pattern chart writer, hospitalist and hospitalist PA to have intermittent aphasia-like symptoms prompting hospitalist to recommended head CT which was completed and negative for intracranial pathology.? TIA remains rule out.? Of note, patient has presented like similarly in the past, but to a much lesser degree, when she is emotionally dysregulated and this remains a strong possibility. 10/23: Pt is presenting as less confused today, no aphasia noted. She reports daytime somnolence. Will have respiratory come to see if pt needs different size CPAP mask. Will change zyprexa to bedtime due to daytime sedation. Will lower trazodone to 50 mg with repeat dose, as pt reports this is adequate for her and she does not typically need 150 mg. Will discontinue cogentin, as pt is unsure why is is on it, denies akathesia. Will decrease gabapentin to 200 mg BID, as pt is reporting daytime sedation and its possible she may be having cognitive SE from medication.? 10/24: Pt appears less confused today, no aphasia, steady when ambulates with walker. Advocates for a PRN for agitation, anxiety. Says she has been on vistaril in the past and denies SE (despite reporting SE on benadryl), will re- trail at 25 mg Q6H PRN and monitor for benefit. 10/25: irritable but utilizing PRNs with good effect, no med changes made today 10/26 -Patient complains of some mild tingling all of her distal fingertips, bila terally which she said started last night. She reports this is never happened before. -patient's lithium has been at 300 mg b.i.d.; will get labs and titrate to home dose if subtherapeutic given history of bipolar disorder 10/27 patient had another episode of intermittent confusion; discussed with Neurology who recommends carotid ultrasound and EEG PLAN: Patient on CV Q 5 minute checks 1. Intermittent confusion/aphasia-like symptoms:?resolved and most likely due to emotionally dysregulated response Abstract Maker discussed case with Dr. Reynolds who recommends carotid ultrasound, although TIA unlikely given no focal deficits, as well as EEG to rule out complex partial seizure -ordered carotid US b/l r/o stenosis -ordered EEG to rule out complex partial seizure Neurologic exam otherwise negative Head CT negative Neurology consulted and report most likely psychosomatic 2. Mood disorder Patient is only been off her medications for a little over a week Increase lithium to 600mg b.i.d.; will get labs -Zyprexa switched to bedtime -Gabapentin lowered to 200 mg b.i.d. -Cogentin discontinued since patient denies EPS history Nursing wind projects supervisor okayed patient's own wheelchair I spent minutes with the patient and/or on the patient floor today, greater than?50% of which was spent counseling/coordinating care. Reason for contiued inpatient stay Substantial Risk for: med/psych decompensation
[2021-10-27] MEDS: Acetaminophen 325 MG TABLET 650 MG PO (17:31)
[2021-10-27 18:00] VITALS: BP 141/77; PULSE 87; RESP 16; TEMP 36.6
[2021-10-27] MEDS: Lithium Carbonate 300 MG CAPSULE 600 MG PO (20:29)
[2021-10-27 22:06] VITALS: BP 141/77; PULSE 87
[2021-10-27] MEDS: Ibuprofen 600 MG TABLET PO (22:06)
[2021-10-27] MEDS: traZODone HCL 50 MG TABLET PO (22:06)
[2021-10-27] MEDS: Prazosin HCL 1 MG CAPSULE 2 MG PO (22:06)
[2021-10-27] MEDS: rOPINIRole HCL 0.5 MG TABLET PO (22:07)
[2021-10-27 22:38] VITALS: PULSE 82; RESP 18; O2SAT 93
--- NOTE | 2021-10-28 | EEG_ITS ---
This is a 16-channel EEG with an EKG lead. Patient is reported awake during the tracing. Background EEG rhythm is 8 to 10 hertz, 5 to 50 microvolt posteriorly, lower amplitude fast anteriorly. Patient transitioned into drowsiness during the tracing. Intermittently sharply controlled theta range discharges were noted in right temporal area with at least phase reversal. Photic stimulation does not produce any significant abnormality. Hyperventilation was not performed. Cardiac lead does not reveal any significant abnormality. IMPRESSION: Mildly abnormal EEG suggestive of right temporal irritability with suspicion of partial seizures. MD GARRET Matt/MARILYN / [id number]
[2021-10-28 06:00] VITALS: BP 109/53; PULSE 80; RESP 16; TEMP 36.1; O2SAT 91
[2021-10-28] MEDS: Omeprazole 20 MG CAPSULE.DR PO (06:36)
[2021-10-28] MEDS: Nicotine 21 MG PATCH.TD24 TRANSDERMA (08:48)
[2021-10-28] MEDS: Fluticasone Propionate 100 MCG BLST.W.DEV 1 PUFF INHALE ×2 (08:49→22:41)
[2021-10-28] MEDS: Ferrous Sulfate 324 MG TABLET.DR PO (08:49)
[2021-10-28] MEDS: Gabapentin 100 MG CAPSULE 200 MG PO ×2 (08:49→22:40)
[2021-10-28] MEDS: Sertraline HCL 50 MG TABLET PO (08:50)
[2021-10-28] MEDS: Lithium Carbonate 300 MG CAPSULE 600 MG PO ×2 (08:50→20:36)
[2021-10-28] MEDS: Cholecalciferol (Vitamin D3) 25 MCG TABLET PO (08:50)
[2021-10-28] MEDS: hydrOXYzine HCL 25 MG TABLET PO ×2 (09:44→20:35)
--- NOTE | 2021-10-28 10:52 | P.PNPSI_ITS ---
Subjective Subjective Date of Service: 10/28/21 Reason For Visit: SI, Depression Interim History: Patient reports she is feeling extremely triggered and even threatened by her roommate whom she says threatened to turn off her CPAP at night. Patient in near tears and said she is trying very hard to hold herself together and stay calm but she is feeling excessively triggered and is worried she will either lose control her demand discharge, ruining her aftercare plans. Patient is able to calm down and accept that staff will help her manage this problem (roommate was eventually transferred to a different floor). Patient otherwise says that she remains in overall positive mood and without any SI or HI. She also says that all auditory hallucinations have ceased and have not been present for 2 days now. Patient asks for p.r.n. Seroquel 25 or 50 to which medical technical writer agrees. She is ambivalent about the need for Zyprexa at bedtime. Entry Level Lab Technician discussed results from carotid Doppler and patient understands. Patient shared history of pseudoseizures medical technical writer contacted Dr. Dajuan Sorensen's office for follow up Mental Status Exam Mental Status Exam Narrative: Pt is alert and oriented; behavior is cooperative, anxious, tearful dressed in casual attire, with adequate hygiene; mood is described as upset affect is anxious, tearful; eye contact appropriate; speech normal rate, rhythm, prosody, volume; not pressured; no psychomotor agitation/retardation present; thought process is goal directed and linear; Thought content upsetting interaction w/ roomate; feeling threatened; also on treatment; Denies SI/HI; denies A/VH;? Patients insight and judgment appear intact. Diagnostics Vital Signs (24Hr): Vital Signs - 24 hr 10/27/21 18:00 10/27/21 22:06 10/27/21 22:38 Temperature 97.8 F Pulse Rate 87 87 Respiratory Rate 16 18 Blood Pressure 141/77 H 141/77 H Pulse Oximetry 10/28/21 06:00 Temperature 97.0 F Pulse Rate 80 Respiratory Rate 16 Blood Pressure 109/53 L Pulse Oximetry 91 L BMI result Body Mass Index 40.5 Labs Results: 10/27/21 08:03 Labs: Laboratory Results - last 48 hr 10/27/21 10/27/21 08:03 08:03 Sodium 140 Potassium 4.5 Chloride 102 Carbon Dioxide 29 Anion Gap 14 [place] 0.41 L Imaging Radiology Impressions: ITS Impressions Chest X-Ray 10/21/21 23:10 IMPRESSION: Unremarkable examination. Head CT 10/22/21 16:17 IMPRESSION: No acute intracranial pathology. Carotid Doppler Study 10/27/21 17:14 IMPRESSION: 1. RIGHT: Moderate, hemodynamically significant stenosis of the proximal right internal carotid artery corresponding to a 50-79% stenosis by velocity criteria. However, no plaque was identified. The eeg technologist did not indicate tortuosity as a potential confounding factor for velocity measurement error. Consider follow-up with repeat ultrasound interrogation versus CTA of the neck. 2. LEFT: Normal left internal carotid artery without atherosclerotic plaque or hemodynamically significant stenosis. Medications Medications Current Medications Acetaminophen (Acetaminophen 325 Mg Tablet) 650 mg PO Q6H PRN PRN Reason: Headache/Pain Mild Scale (1-3) Last Admin: 10/27/21 17:31 Dose: 650 mg Documented by: Al Hydroxide/Mg Hydroxide (Magnesium Hydrox/Alum Hydrox 30 Ml Oral.Susp) 30 ml PO Q6H PRN PRN Reason: Heartburn/Nausea Albuterol Sulfate (Albuterol Sulfate 90 Mcg 8 Gm Inhaler) 2 puff INHALE Q6H PRN PRN Reason: asthma Last Admin: 10/27/21 12:06 Dose: 2 puff Documented by: Ferrous Sulfate (Ferrous Sulfate 324 Mg Tablet.Dr) 324 mg PO DAILY [facility] Last Admin: 10/28/21 08:49 Dose: 324 mg Documented by: Fluticasone Propionate (Fluticasone Propionate 100 Mcg Blst.W.Dev) 1 puff INHALE RBID [facility] Last Admin: 10/28/21 08:49 Dose: 1 puff Documented by: Gabapentin (Gabapentin 100 Mg Capsule) 200 mg PO BID [facility] Last Admin: 10/28/21 08:49 Dose: 200 mg Documented by: Hydroxyzine HCl (Hydroxyzine Hcl 25 Mg Tablet) 25 mg PO Q6H PRN PRN Reason: anxiety Last Admin: 10/28/21 09:44 Dose: 25 mg Documented by: Ibuprofen (Ibuprofen 600 Mg Tablet) 600 mg PO Q6H PRN PRN Reason: mod-severe pain Last Admin: 10/27/21 22:06 Dose: 600 mg Documented by: [place] Carbonate ([place] Carbonate 300 Mg Capsule) 600 mg PO BID [facility] Last Admin: 10/28/21 08:50 Dose: 600 mg Documented by: Magnesium Hydroxide (Milk Of Magnesia 30 Ml Oral.Susp) 30 ml PO DAILY PRN PRN Reason: Constipation Nicotine (Nicotine 21 Mg Patch.Td24) 21 mg TRANSDERMA DAILY [facility] Last Admin: 10/28/21 08:48 Dose: 21 mg Documented by: Olanzapine (Olanzapine 5 Mg Tablet) 5 mg PO Q8H PRN PRN Reason: Agitation Last Admin: 10/27/21 11:11 Dose: 5 mg Documented by: Olanzapine (Olanzapine 5 Mg Tablet) 5 mg PO BEDTIME TEJA Last Admin: 10/27/21 22:06 Dose: 5 mg Documented by: Omeprazole (Omeprazole 20 Mg Capsule.Dr) 20 mg PO DAILY@0630 [facility] Last Admin: 10/28/21 06:36 Dose: 20 mg Documented by: Prazosin HCl (Prazosin Hcl 1 Mg Capsule) 2 mg PO BEDTIME TEJA; Protocol Last Admin: 10/27/21 22:06 Dose: 2 mg Documented by: Ropinirole HCl (Ropinirole Hcl 0.5 Mg Tablet) 0.5 mg PO BEDTIME TEJA Last Admin: 10/27/21 22:07 Dose: 0.5 mg Documented by: Sertraline HCl (Sertraline Hcl 50 Mg Tablet) 50 mg PO DAILY [facility] Last Admin: 10/28/21 08:50 Dose: 50 mg Documented by: Trazodone HCl (Trazodone Hcl 50 Mg Tablet) 50 mg PO BEDTIME TEJA Last Admin: 10/27/21 22:06 Dose: 50 mg Documented by: Valacyclovir HCl (Valacycyclovir Hcl 1,000 Mg Tablet) 1,000 mg PO Q12H TE[facility] Last Admin: 10/28/21 09:46 Dose: 1,000 mg Documented by: Vitamin D (Cholecalciferol (Vitamin D3) 25 Mcg Tablet) 25 mcg PO DAILY TE[facility] Last Admin: 10/28/21 08:50 Dose: 25 mcg Documented by: Allergies Allergies Allergy/AdvReac Type Severity Reaction Status Date / Time aspirin [Aspirin] Allergy Severe HIVES,THROAT Verified 10/13/21 04:51 SWELLS bee pollen [BEE STINGS] Allergy Severe ANAPHYLAXIS Verified 10/13/21 04:51 diphenhydramine Allergy Severe hives, Verified 10/13/21 04:51 [From BENADRYL ALLERGY] throat swells Penicillins [PCN] Allergy Severe HIVES Verified 10/13/21 04:51 THROAT SWELLS Sulfa (Sulfonamide Allergy Intermediate HIVES Verified 10/13/21 04:51 Antibiotics) [SULFA (SULFONAMIDE ANTIBIOTICS)] tramadol [TRAMADOL] Allergy Intermediate ITCHING Verified 10/13/21 04:51 latex [LATEX] Allergy Unknown UNKNOWN Verified 10/13/21 04:51 penicillin G Allergy Unknown Unknown Verified 10/13/21 04:51 levofloxacin [From Levaquin] Allergy Hives Verified 10/13/21 04:51 bee stings Allergy Unknown Unknown Uncoded 10/13/21 04:51 DairyCare Allergy Unknown Unknown Uncoded 10/13/21 04:51 sulfa drugs Allergy Unknown Unknown Uncoded 10/13/21 04:51 Assessment & Plan Assessment & Plan (1) Bipolar disorder: Qualifiers: Active/Remission status: currently active Current bipolar episode type: mixed Current episode severity: moderate Qualified Code(s): F31.62 - Bipolar disorder, current episode mixed, moderate Status: Acute Code(s): F31.9 - Bipolar disorder, unspecified (2) PTSD (post-traumatic stress disorder): Status: Acute Code(s): F43.10 - Post-traumatic stress disorder, unspecified (3) Borderline personality disorder: Status: Acute Code(s): F60.3 - Borderline personality disorder (4) Cocaine use disorder: Status: Acute Code(s): F14.10 - Cocaine abuse, uncomplicated Assessment and Plan: in sustained remission (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 On initial exam, patient is a poor historian.? She soon went off her medications once discharged; depression worsened and then she says she had visual hallucinations which she has not had an years; patient felt suicidal with plan to jump off bridge so she self presented.? Meeting with patient, she appeared confused, with aphasia-like symptoms, having a hard time speaking in full sentences, articulating her words and with word finding. Not at baseline functioning. She knew her name but? said her date was (instead of 01/03/2070), did not recognize medical technical writer whom she knows or director social service whom she knows well.? Patient said that she was feeling scared because of her feelings of confusion and struggles speaking.? Entry Level Lab Technician did focused neurological exam that was otherwise unremarkable Extraocular muscles intact Pupils equally round and reactive to light/accommodation Cranial nerves 2-12 grossly intact Strength 5/5 bilaterally Negative cerebellar symptoms (to finger to nose; nix to nix) Patient discussed with hospitalist who evaluated and was observed by both medical technical writer, hospitalist and hospitalist PA to have intermittent aphasia-like symptoms prompting hospitalist to recommended head CT which was completed and negative for intracranial pathology.?TIA ruled out w/ Doppler US; Of note, patient has presented like similarly in the past, and has hx of pseudo- seizures; emotionally dysregulated and this remains a strong possibility. 10/23: Pt is presenting as less confused today, no aphasia noted. She reports daytime somnolence. Will have respiratory come to see if pt needs different size CPAP mask. Will change zyprexa to bedtime due to daytime sedation. Will lower trazodone to 50 mg with repeat dose, as pt reports this is adequate for her and she does not typically need 150 mg. Will discontinue cogentin, as pt is unsure why is is on it, denies akathesia. Will decrease gabapentin to 200 mg BID, as pt is reporting daytime sedation and its possible she may be having cognitive SE from medication.? 10/24: Pt appears less confused today, no aphasia, steady when ambulates with walker. Advocates for a PRN for agitation, anxiety. Says she has been on vistaril in the past and denies SE (despite reporting SE on benadryl), will re- trail at 25 mg Q6H PRN and monitor for benefit. 10/25: irritable but utilizing PRNs with good effect, no med changes made today 10/26 -Patient complains of some mild tingling all of her distal fingertips, bilaterally which she said started last night. She reports this is never happened before. -patient's lithium has been at 300 mg b.i.d.; will get labs and titrate to home dose if subtherapeutic given history of bipolar disorder Patient dealing with upsetting milieu interactions trying very hard to stay in good behavioral and impulse control; of note specific peer was being part icularly provocative and was eventually transferred to a different floor. Patient asked for Seroquel 25 and 50 mg as PRNs; will not increase Zyprexa for now as patient may certainly come down once intrusive peer is no longer on the unit. Discussed carotid Doppler findings with patient; patient reports she has a history of pseudoseizures and thinks this could possibly be the cause however agrees to EEG. PLAN: Patient on CV Q 5 minute checks 1. Mood disorder Patient is only been off her medications for a little over a week lithium at 300 mg b.i.d.; will get labs and likely titrate to home dose continue zyprexa qhs (Sandrine reports it helped since added) -PT eval for placement in [facility] 2. Intermittent confusion/aphasia-like symptoms:?Pseudo-Seizure vs Seizure (while pseudo-seizure most likely, will work up to r/o organic cause) -EEG ordered (pt has hx of pseudo seizures) Neurologic exam otherwise negative Head CT negative Carotid Doppler 10/27/21 findings indicate NOT TIA (see findings below); medical technical writer discussed findings with Dr. Sorensen who suggests fish oil capsule b.i.d. since patient is allergic aspirin; he suggests follow-up ultrasound in a year as current findings are not cause for intermittent confusion. He also recommends EEG which has been ordered. Lipids WNL on 09/10/21 Carotid Doppler 10/27/21 IMPRESSION: 1. RIGHT: Moderate, hemodynamically significant stenosis of the proximal right internal carotid artery corresponding to a 50-79% stenosis by velocity criteria. However, no plaque was identified. The eeg technologist did not indicate tortuosity as a potential confounding factor for velocity measurement error. Consider follow-up with repeat ultrasound interrogation versus CTA of the neck. ? 2. LEFT: Normal left internal carotid artery without atherosclerotic plaque or hemodynamically significant stenosis. ? Nursing prepared foods supervisor okayed patient's own wheelchair I spent minutes with the patient and/or on the patient floor today, greater than?50% of which was spent counseling/coordinating care. Reason for contiued inpatient stay Substantial Risk for: rapid decompensation
[2021-10-28] MEDS: Albuterol Sulfate 90 MCG 8 GM INHALER 2 PUFF INHALE (11:04)
[2021-10-28] MEDS: Ibuprofen 600 MG TABLET PO ×2 (11:05→19:39)
[2021-10-28] MEDS: QUEtiapine Fumarate 25 MG TABLET PO (11:30)
[2021-10-28 18:00] VITALS: BP 135/68; PULSE 88; RESP 16; TEMP 36.1; O2SAT 96
[2021-10-28] MEDS: rOPINIRole HCL 0.5 MG TABLET PO (22:39)
[2021-10-28 22:40] VITALS: BP 135/68; PULSE 88
[2021-10-28] MEDS: OLANZapine 5 MG TABLET PO (22:40)
[2021-10-28] MEDS: Acetaminophen 325 MG TABLET 650 MG PO (22:40)
[2021-10-28] MEDS: traZODone HCL 50 MG TABLET PO (22:40)
[2021-10-28] MEDS: Prazosin HCL 1 MG CAPSULE 2 MG PO (22:40)
[2021-10-29] MEDS: QUEtiapine Fumarate 25 MG TABLET PO (00:34)
[2021-10-29] MEDS: Gabapentin 100 MG CAPSULE 200 MG PO (08:48)
[2021-10-29] MEDS: Fluticasone Propionate 100 MCG BLST.W.DEV 1 PUFF INHALE (08:48)
[2021-10-29] MEDS: Ferrous Sulfate 324 MG TABLET.DR PO (08:48)
[2021-10-29] MEDS: Sertraline HCL 50 MG TABLET PO (08:48)
[2021-10-29] MEDS: Cholecalciferol (Vitamin D3) 25 MCG TABLET PO (08:48)
[2021-10-29] MEDS: Lithium Carbonate 300 MG CAPSULE 600 MG PO (08:48)
[2021-10-29] MEDS: Omeprazole 20 MG CAPSULE.DR PO (08:48)
[2021-10-29] MEDS: Nicotine 21 MG PATCH.TD24 TRANSDERMA (08:48)
--- NOTE | 2021-10-29 12:47 | P.DS_ITS ---
DS: Providers Provider Date of Service: 10/29/21 Date of admission: 10/21/21 18:13 Date of discharge: 10/29/21 Primary care physician: Unknown Physician Admitting clinician: Rolanda Wilson Consults: 10/22/21 19:50 Consult to Neurology Routine Consulting Provider: [facility] Reason for consultation: intermittent aphasia Attending physician on discharge: Lamont Damon DS: Diagnosis Discharge Diagnosis (1) Bipolar disorder: Status: Acute (2) PTSD (post-traumatic stress disorder): Status: Acute (3) Borderline personality disorder: Status: Acute (4) Cocaine use disorder: Status: Resolved (5) Pseudoseizures: Status: Acute DS: Medications Discharge Medications Home Medications: Previous Rx's Medication Instructions Recorded white petrolatum-mineral oil 1 appl TOPICAL TID #1 g 09/14/21 topical cream (Dermacerin) trolamine salicylate-aloe vera 10 1 appl TOPICAL TID PRN #1 g 10/12/21 % topical cream (Aspercreme with Aloe) Fish Oil 1 cap PO BID #60 cap 10/29/21 albuterol sulfate 90 mcg/actuation 2 puff INHALATION Q4-6H PRN 30 10/29/21 aerosol inhaler Days #8.5 g cholecalciferol (vitamin D3) 25 25 mcg PO DAILY 30 Days #30 tab 10/29/21 mcg (1,000 unit) tablet ferrous sulfate 324 mg (65 mg 324 mg PO DAILY 30 Days #30 tab 10/29/21 iron) tablet,delayed release fluticasone 232 mcg-salmeterol 14 1 inh INHALATION BID 30 Days #1 ea 10/29/21 mcg/actuation breath activated powdr (AirDuo RespiClick) gabapentin 100 mg capsule 200 mg PO BID 30 Days #120 cap 10/29/21 lithium carbonate 600 mg capsule 600 mg PO BID 30 Days #60 cap 10/29/21 nicotine 21 mg/24 hr daily 21 mg TRANSDERMAL DAILY 30 Days 10/29/21 transdermal patch #30 ea olanzapine 5 mg tablet 5 mg PO BEDTIME 30 Days #30 tab 10/29/21 omeprazole 20 mg capsule,delayed 20 mg PO DAILY@0630 30 Days #30 cap 10/29/21 release prazosin 1 mg capsule 2 mg PO BEDTIME 30 Days #60 cap 10/29/21 quetiapine 25 mg tablet 25 mg PO BID PRN 30 Days #45 tab 10/29/21 ropinirole 0.5 mg tablet 0.5 mg PO BEDTIME 30 Days #30 tab 10/29/21 sertraline 50 mg tablet 50 mg PO DAILY 30 Days #30 tab 10/29/21 trazodone 150 mg tablet 150 mg PO BEDTIME 30 Days #30 tab 10/29/21 valacyclovir 1 gram tablet 1,000 mg PO BID 30 Days #60 tab 10/29/21 Mental Status Exam Mental Status Exam Narrative: Pt is alert and oriented; behavior is cooperative; dressed in casual attire, with adequate hygiene; mood is described as upset affect is anxious, tearful; eye contact appropriate; speech normal rate, rhythm, prosody, volume; not pressured; no psychomotor agitation/retardation present; thought process is goal directed and linear; Thought content triggering environment of milue and wanting discharge; Denies SI/HI; denies A/VH;? Patients insight and judgment appear intact. Data Data Completed and Pending Completed studies during hospitalization [Text1]: 10/22/21 10/27/21 10/27/21 14:25 08:03 08:03 Sodium 140 Potassium 4.5 Chloride 102 Carbon Dioxide 29 Anion Gap 14 POC Glucose 88 [place] 0.41 L Imaging Diagnostic Imaging Impressions Chest X-Ray 10/21/21 23:10 IMPRESSION: Unremarkable examination. Head CT 10/22/21 16:17 IMPRESSION: No acute intracranial pathology. Carotid Doppler Study 10/27/21 17:14 IMPRESSION: 1. RIGHT: Moderate, hemodynamically significant stenosis of the proximal right internal carotid artery corresponding to a 50-79% stenosis by velocity criteria. However, no plaque was identified. The textile technologist did not indicate tortuosity as a potential confounding factor for velocity measurement error. Consider follow-up with repeat ultrasound interrogation versus CTA of the neck. 2. LEFT: Normal left internal carotid artery without atherosclerotic plaque or hemodynamically significant stenosis. DS: Summary Hospital Course Hospital Course: Patient is a 51-year-old female with history of PTSD, bipolar and substance abuse who was recently discharged 10 days ago and self presents for worsening depression and AVH off of her medications, however has remained sober.? On initial exam, patient is a poor historian.? She soon went off her medications once discharged; depression worsened and then she says she had visual hallucinations which she has not had an years; patient felt suicidal with plan to jump off bridge so she self presented.? Patient was continued on her medications and both suicidality and depression resolved. Patient wanted to get into [facility] housing however became overly provoked on the unit by peers and felt she needed to discharge (of note, during her admission, the unit had a high acuity and there were several peers that were particularly provocative, 1 having singled out this patient who is mostly able to avoid this peer however did endure an intermittently stressful and triggering environment). Case was thoroughly discussed with patient's team which included, providers, social workers and nursing staff who know patient well. It is well understood by both team and patient that she has longstanding chronic issues that will not resolve with a longer stay on inpatient unit but require consistent outpatient therapy, something patient has not been ready with which to engage. To that end, it is likely that at some point, patient will again decompensate, relapse or again wander into a risky situation. However she denies any HI or SI and feels that her mood is overall good; she is future oriented and continues to want [facility] housing and is grateful that the application has been submitted. Patient is not in imminent risk of harm to self or others and does not meet criteria for involuntary commitment. Her request for discharge was honored. During admission, patient had several episodes where she appeared confused and had aphasia like symptoms, appearing to have a hard time speaking in full sentences, articulating her words and with word finding. Patient reported she does have a history of pseudoseizures but was unable to say if this was 1 of them. Hospitalist and then Neurology consult replaced. Patient however had an otherwise normal neurological exam; head CT was unremarkable; Carotid Doppler on 10/27/21 findings indicate NOT TIA (see findings below); bond writer discussed findings with Dr. Sorensen who suggests fish oil capsule b.i.d. since patient is allergic aspirin and follow-up ultrasound in a year. EEG ordered and IMPRESSION:?Mildly abnormal EEG suggestive of right temporal irritability with suspicion of partial seizures. However, patient decided to discharge, knowingly before follow up could be organized, patient wanting to follow up with outpatient provider. Pt also c/o lump behind left ear but said she wanted to discharge and would instead just follow up with her outpt provider Medication: Cogentin discontinued since no EPS or history of Carotid Doppler 10/27/21 IMPRESSION: 1. RIGHT: Moderate, hemodynamically significant stenosis of the proximal right internal carotid artery corresponding to a 50-79% stenosis by velocity criteria. However, no plaque was identified. The textile technologist did not indicate tortuosity as a potential confounding factor for velocity measurement error. Consider follow-up with repeat ultrasound interrogation versus CTA of the neck. ?2. LEFT: Normal left internal carotid artery without atherosclerotic plaque or hemodynamically significant stenosis. EEG 10/28/21 (?Gabriel Sorensen MD) This is a 16-channel EEG with an EKG lead.? Patient is reported awake during the tracing.? Background EEG rhythm is 8 to 10 hertz, 5 to 50 microvolt posteriorly, lower amplitude fast anteriorly.? Patient transitioned into drowsiness during the tracing.? Intermittently sharply controlled theta range discharges were noted in right temporal area with at least phase reversal.? Photic stimulation does not produce any significant abnormality. Hyperventilation was not performed.? Cardiac lead does not reveal any significant abnormality. ? IMPRESSION:? Mildly abnormal EEG suggestive of right temporal irritability with suspicion of partial seizures. ? ? ? Time spent discussing smoking cessation with patient: 3 to 10 minutes Status at Discharge Functional status at discharge: uses cane/walker Overall status at discharge: patient is back to baseline Time Spent with Patient Time attestation: Total time spent providing and/or coordinating discharge services: Time spent: Greater than 30 minutes Discharge Plan Discharge Patient Disposition: Jail Discharge Diagnosis: bipolar disorder, Type 1, recurrent, severe most recently depressed in full remission Referrals: Dr. Malvin Mars (psychiatry) [Other] - 10/30/21 2:00 pm (This appointment is in-office) Rosa Ponce (therapy) [Other] - 1 Week (Please call your therapist Rosa to schedule your follow-up appointment) Henok Reyes ([facility]) [Other] - 1 Week (Please contact your [facility] to stay in touch regarding a [facility] respite bed opening) Physician,Unknown J [Primary Care Provider] - 1 Week (referral to [address] [phone]) Discharge Medications: New quetiapine 25 mg Tablet 25 mg PO BID PRN (Reason: anxiety) 30 Days Qty: 45 RF: 0 ropinirole 0.5 mg Tablet 0.5 mg PO BEDTIME 30 Days Qty: 30 RF: 0 omega 0-cfj-bfp-fish oil [Fish Oil] 1,000 mg (120 mg-180 mg) capsule 1 cap PO BID 30 Days Qty: 60 RF: 0 Continued valacyclovir 1 gram Tablet 1,000 mg PO BID 30 Days Qty: 60 RF: 0 prazosin 1 mg Capsule 2 mg PO BEDTIME 30 Days Qty: 60 RF: 0 lithium carbonate 600 mg Capsule 600 mg PO BID 30 Days Qty: 60 RF: 0 trazodone 150 mg Tablet 150 mg PO BEDTIME 30 Days Qty: 30 RF: 0 nicotine 21 mg/24 hr Patch 24 Hour 21 mg transdermal DAILY 30 Days Qty: 30 RF: 0 omeprazole 20 mg Capsule,Delayed Release(Dr/Ec) 20 mg PO DAILY@0630 30 Days Qty: 30 RF: 0 albuterol sulfate 90 mcg/actuation HFA aerosol inhaler 2 puff inhalation Q4-6H PRN (Reason: shortness of breath or wheezing) 30 Days Qty: 8.5 RF: 0 sertraline 50 mg Tablet 50 mg PO DAILY 30 Days Qty: 30 RF: 0 cholecalciferol (vitamin D3) 25 mcg (1,000 unit) Tablet 25 mcg PO DAILY 30 Days Qty: 30 RF: 0 ferrous sulfate 324 mg (65 mg iron) Tablet,Delayed Release (Dr/Ec) 324 mg PO DAILY 30 Days Qty: 30 RF: 0 fluticasone propion-salmeterol [AirDuo RespiClick] 232-14 mcg/actuation Aerosol Powdr Breath Activated 1 inh INHALATION BID 30 Days Qty: 1 RF: 0 Changed olanzapine 5 mg Tablet 5 mg PO BEDTIME 30 Days Qty: 30 RF: 0 gabapentin 100 mg Capsule 200 mg PO BID 30 Days Qty: 120 RF: 0 Discontinued prednisone 50 mg tablet 50 mg PO DAILY Qty: 5 RF: 0 albuterol sulfate 90 mcg/actuation HFA aerosol inhaler 2 puff inhalation QID PRN (Reason: wheezing) Qty: 1 RF: 0 benztropine 1 mg Tablet 1 mg PO BEDTIME Qty: 30 RF: 0 Discharge Orders: Discharge Order (Routine); Ordered 10/29/21 Ordered By: Lamont Damon Diet: regular diet Activity on Discharge: As tolerated Stand Alone Forms: Patient Portal Discharge page, Community Support Other Ambulatory Orders: Blood Urea Nitrogen (Routine) Timeframe: 3 Days Facility: [facility] - Location: Laboratory Ordered By: Lamont Damon Creatinine (Routine) Timeframe: 3 Days Facility: [facility] - Location: Laboratory Ordered By: Lamont Damon [place] (Routine) Timeframe: 3 Days Facility: [facility] - Location: Laboratory Ordered By: Lamont Damon Care Plan Goals: Maintain mood and safe behaviors Take medications as prescribed Get Lab work done on 11/01/21 or 11/02/21 Continue to pursue sobriety Practice coping skills Continue with outpatient providers and reach out to them as needed Health Concerns: Mood stability and behaviors Sobriety COPD Plan of Treatment: Follow up with your PCP, psychiatric provider and other outpatient providers regarding above concerns Take medications as prescribed Assessment: Risk assessment at time of discharge:? Patient was interviewed prior to discharge and found to be fully oriented and without any SI or HI. Patient has insight and demonstrates good judgment in terms of wanting to pursue treatment. Patient is not in imminent risk of harm to self or others and has a safety plan that includes presenting to the closest ER or calling 911 if feeling unsafe.? Patient has been observed closely by nursing and unit staff throughout admission; patient did once get provoked by a peer and needed to be redirected, but otherwise has not engaged in any behaviors that suggest dangerousness to self or others and has demonstrated appropriate behaviors and impulse control Discharge Date/Time: 10/29/21 13:45
== END 2021-10-29 13:45 | disposition home or self-care (01) | DRG 753 ==
LOC: HO.ED 03:20 → HO.PM5 18:41
PROVIDERS: Admitting Provider Registered Nurse; Emergency Provider Internal Medicine; Visit Provider Psychiatry & Neurology Psychiatry
DX: F31.62 Bipolar disorder, current episode mixed, moderate (principal); R45.851 Suicidal ideations; F44.5 Conversion disorder with seizures or convulsions; Z91.14 Patient's other noncompliance with medication regimen; F60.3 Borderline personality disorder; R47.81 Slurred speech; F43.10 Post-traumatic stress disorder, unspecified; F14.10 Cocaine abuse, uncomplicated; Z20.822 Contact with and (suspected) exposure to COVID-19; Z79.51 Long term (current) use of inhaled steroids; Z88.0 Allergy status to penicillin; Z88.2 Allergy status to sulfonamides; Z91.040 Latex allergy status; Z79.899 Other long term (current) drug therapy
CPT/HCPCS: 36415; 70450; 71046; 80051; 80076; 80178; 80307; 81001; 82607; 82746; 82947; 83735; 84439; 84443; 87635; 93005; 93880; 94660; 95816; 99285

== ENCOUNTER 2021-11-07 12:01 | Inpatient (IN) | payer OTHER, MEDICAID, SELFPAY ==
--- NOTE | ~2021-11-07 | US_ITS ---
EXAMINATION: ULTRASOUND-GUIDED CORE BIOPSY OF LEFT PAROTID GLAND LESION. CLINICAL INFORMATION: Complex cystic and solid mass which is multiloculated involving the superficial aspect of the left parotid gland. COMPARISON: CT cervical spine of October 03, 2021 TECHNIQUE: Ultrasound-guided core biopsy FINDINGS: Informed consent was obtained from the patient prior to the procedure. During this process, the procedure and potential alternatives were explained, along with the intended outcome and benefits. The risks of the procedure, as well as the risk of not doing the procedure, were discussed. The patient was given the opportunity to ask questions regarding the procedure and appeared competent to make medical decisions. A signed consent form which documents this discussion was placed in the medical record. Using sterile technique and ultrasound guidance a 19-gauge guiding needle was directed into the mass and a few cc of clear yellow fluid was removed for cytology. Following this 3 20-gauge core biopsies of the lesion was performed. At this point the examination was terminated due to patient discomfort and wanting to stop the procedure. The core biopsy samples were placed in formalin.. US/US guide needle placement IMPRESSION: Ultrasound-guided core biopsy of left parotid mass.
--- NOTE | ~2021-11-07 | US_ITS ---
EXAMINATION: ULTRASOUND-GUIDED CORE BIOPSY OF LEFT PAROTID GLAND LESION. CLINICAL INFORMATION: Complex cystic and solid mass which is multiloculated involving the superficial aspect of the left parotid gland. COMPARISON: CT cervical spine of October 03, 2021 TECHNIQUE: Ultrasound-guided core biopsy FINDINGS: Informed consent was obtained from the patient prior to the procedure. During this process, the procedure and potential alternatives were explained, along with the intended outcome and benefits. The risks of the procedure, as well as the risk of not doing the procedure, were discussed. The patient was given the opportunity to ask questions regarding the procedure and appeared competent to make medical decisions. A signed consent form which documents this discussion was placed in the medical record. Using sterile technique and ultrasound guidance a 19-gauge guiding needle was directed into the mass and a few cc of clear yellow fluid was removed for cytology. Following this 3 20-gauge core biopsies of the lesion was performed. At this point the examination was terminated due to patient discomfort and wanting to stop the procedure. The core biopsy samples were placed in formalin.. US/US biopsy parotid gland IMPRESSION: Ultrasound-guided core biopsy of left parotid mass.
--- NOTE | ~2021-11-07 | CT_ITS ---
EXAMINATION: CT CHEST WITHOUT CONTRAST CLINICAL INFORMATION: Shortness of breath COMPARISON: Chest x-ray 10/21/2021. CT chest 04/17/2020. TECHNIQUE: Multidetector volumetric CT imaging of the chest was done. Axial MIP volume rendering provided. Sagittal and coronal reformatted images were obtained. This CT examination was performed using dose optimization techniques as appropriate, variously including the following: *Automated exposure control *Adjustment of mA and/or kV according to patient size (this includes techniques or standardized protocols for targeted exams where dose is matched to indication/reason for exam; i.e. extremities or head) *Use of iterative reconstruction technique DLP: 660 mGy-cm FINDINGS: LUNGS: The lungs are clear with no evidence of inflammation or nodules. MEDIASTINUM: Small hazy density in the anterior retrosternal mediastinum may be residual thymic tissue. No mass. No change since CT of 04/17/2020. No significant lymphadenopathy. Heart size is normal. No pericardial effusion. No aneurysm of aorta. Small volume of calcifications of thoracic aortic arch. PLEURA: There is no pleural effusion. No pleural mass or thickening. AXILLA: No lymphadenopathy. UPPER ABDOMEN: No abnormality visualized solid organs in the upper abdomen. Status post cholecystectomy. OSSEOUS STRUCTURES: Unremarkable. CT/CT chest wo con IMPRESSION: No acute abnormality CT scan of the chest. Fleischner guidelines were followed.
--- NOTE | 2021-11-07 12:04 | ED.PSYCH ---
HPI - Psych General Chief Complaint: Psychiatric Symptoms Stated Complaint: crisis Time Seen by Provider: 11/07/21 12:04 Source: patient Mode of arrival: EMS Limitations: no limitations History of Present Illness HPI Narrative: 51-year-old female past medical history significant for bipolar 1, borderline personality disorder, COPD, asthma, depression, obstructive sleep apnea, PTSD presenting to the emergency department with suicidal ideation with a plan to jump off a bridge. Patient tells me she recently stopped taking all her medications because I do not like the way it feels . She denies visual, auditory, hallucinations. Patient tells me she is having tactile hallucinations, she feels spiders and ants crawling upper arms and legs. Patient denies drugs, and alcohol use.? Patient is a current daily smoker and smokes 2 packs per day Offers no other complaints at this time.? Denies chest pain, shortness of breath, fevers, chills, nausea, vomiting, diarrhea, vision changes, dizziness, recent sick contacts.? Patient is not on blood thinners? MD complaint: suicidal ideation Onset (ago): day(s) (1) Duration: constant History of same: Yes Relieving factors: none Exacerbating factors: none Associated psychiatric symptoms: depression and suicidal ideation Associated symptoms: denies other symptoms Treatments prior to arrival: none If self harm: admits thoughts of self harm and has plan Related Data Previous Rx's Medication Instructions Recorded white petrolatum-mineral oil 1 appl TOPICAL TID #1 g 09/14/21 topical cream (Dermacerin) trolamine salicylate-aloe vera 10 1 appl TOPICAL TID PRN #1 g 10/12/21 % topical cream (Aspercreme with Aloe) albuterol sulfate 90 mcg/actuation 2 puff INHALATION Q4-6H PRN 30 10/29/21 aerosol inhaler Days #8.5 g cholecalciferol (vitamin D3) 25 25 mcg PO DAILY 30 Days #30 tab 10/29/21 mcg (1,000 unit) tablet ferrous sulfate 324 mg (65 mg 324 mg PO DAILY 30 Days #30 tab 10/29/21 iron) tablet,delayed release fluticasone 232 mcg-salmeterol 14 1 inh INHALATION BID 30 Days #1 ea 10/29/21 mcg/actuation breath activated powdr (AirDuo RespiClick) gabapentin 100 mg capsule 200 mg PO BID 30 Days #120 cap 10/29/21 lithium carbonate 600 mg capsule 600 mg PO BID 30 Days #60 cap 10/29/21 nicotine 21 mg/24 hr daily 21 mg TRANSDERMAL DAILY 30 Days 10/29/21 transdermal patch #30 ea olanzapine 5 mg tablet 5 mg PO BEDTIME 30 Days #30 tab 10/29/21 omega 5-wlg-iom-fish oil 1,000 mg 1 cap PO BID 30 Days #60 cap 10/29/21 (120 mg-180 mg) capsule (Fish Oil) omeprazole 20 mg capsule,delayed 20 mg PO DAILY@0630 30 Days #30 cap 10/29/21 release prazosin 1 mg capsule 2 mg PO BEDTIME 30 Days #60 cap 10/29/21 quetiapine 25 mg tablet 25 mg PO BID PRN 30 Days #45 tab 10/29/21 ropinirole 0.5 mg tablet 0.5 mg PO BEDTIME 30 Days #30 tab 10/29/21 sertraline 50 mg tablet 50 mg PO DAILY 30 Days #30 tab 10/29/21 trazodone 150 mg tablet 150 mg PO BEDTIME 30 Days #30 tab 10/29/21 valacyclovir 1 gram tablet 1,000 mg PO BID 30 Days #60 tab 10/29/21 Allergies Allergy/AdvReac Type Severity Reaction Status Date / Time aspirin [Aspirin] Allergy Severe HIVES,THROAT Verified 10/13/21 04:51 SWELLS bee pollen [BEE STINGS] Allergy Severe ANAPHYLAXIS Verified 10/13/21 04:51 diphenhydramine Allergy Severe hives, Verified 10/13/21 04:51 [From BENADRYL ALLERGY] throat swells Penicillins [PCN] Allergy Severe HIVES Verified 10/13/21 04:51 THROAT SWELLS Sulfa (Sulfonamide Allergy Intermediate HIVES Verified 10/13/21 04:51 Antibiotics) [SULFA (SULFONAMIDE ANTIBIOTICS)] tramadol [TRAMADOL] Allergy Intermediate ITCHING Verified 10/13/21 04:51 latex [LATEX] Allergy Unknown UNKNOWN Verified 10/13/21 04:51 penicillin G Allergy Unknown Unknown Verified 10/13/21 04:51 levofloxacin [From Levaquin] Allergy Hives Verified 10/13/21 04:51 bee stings Allergy Unknown Unknown Uncoded 10/13/21 04:51 DairyCare Allergy Unknown Unknown Uncoded 10/13/21 04:51 sulfa drugs Allergy Unknown Unknown Uncoded 10/13/21 04:51 Review of Systems Review of Systems: Constitutional : No Fever, No Chills ENT/Mouth : No Ear Pain, No Nasal Congestion, No sore throat Eyes: No Eye Pain, No Swelling, No Redness Cardiovascular : No Chest Pain, No SOB Respiratory : No Cough, No Sputum, No Dyspnea Gastrointestinal : No Nausea, No Vomiting, No Diarrhea, No Hematochezia, No Melena Genitourinary : No Dysuria, No Urinary Frequency, No Hematuria Musculoskeletal : No Myalgias Skin : No Skin Lesions, No rash Neuro : No Weakness, No Numbness, No Paresthesias, No Dizziness, No Headache Psych : positive Anxiety, positive Depression, positive SI, No HI All other systems reviewed and are negative Yes all other systems are reviewed and are negative [facility] Past Medical History Attestation statement: The following information was validated with the patient. Source: old records reviewed and nursing notes reviewed Medical History Asthma exacerbation in COPD Bipolar disorder Bipolar I disorder Borderline personality disorder Borderline personality disorder COPD (chronic obstructive pulmonary disease) Depression Drug abuse Herpes Intermittent explosive disorder FABIOLA (obstructive sleep apnea) Post traumatic stress disorder (PTSD) PTSD (post-traumatic stress disorder) PTSD (post-traumatic stress disorder) Tobacco use Surgical History History of ankle surgery History of appendectomy History of back surgery Hx of cholecystectomy Family History Family History Mother COPD (chronic obstructive pulmonary disease) Social History Social History Household Members: None Household Members Other:: Pt states she hangs out with a male friend and a female friend Housing: Homeless Housing Other:: will be getting apartment 07/01 Do you presently have visiting nurse or other home services: No Unable to assess alcohol history related to: Unknown Alcohol intake: never Patient Tobacco Use Status: Current everyday Tobacco user Tobacco use type: Cigarette Cigarette Packs Per Day: 2 Cigarettes Per Day: 40.0 Years Smoked: 17 e-Cigarette/Vaping Use: Never Used Second Hand Smoke Exposure: Yes Substance Use Type: Crack/Cocaine Advance Directives: Yes Advance Directives on File: Yes Advance Directives Date on File: 12/24/20 Patient : No service: No Current occupational status: unemployed and disabled Sexual orientation: Did not discuss Physical Exam Vital Signs: Vital Signs: Last Vital Signs Temp 98.5 F 11/07/21 12:41 Pulse 88 11/07/21 12:41 Resp 16 11/07/21 12:41 BP 129/85 11/07/21 12:41 Pulse Ox 94 11/07/21 12:41 BMI result Body Mass Index 58.1 VSS Appearance: Alert.? Oriented X3.? No acute distress.? Head: Normocephalic, atraumatic, no step-offs or deformities Eyes: Pupils equal, round and reactive to light.? ENT: Pharynx normal.? Neck: Normal inspection.? Neck supple.? CVS: Normal heart rate and rhythm.? Pulses normal.? Respiratory: No respiratory distress.? Breath sounds normal.? Abdomen: Soft and nontender.? Skin: Skin warm and dry.? Normal skin color.? Normal skin turgor.? Extremities: No lower extremity edema.? No calf ttp. 5/5 strength to bilateral upper and lower extremities Back: No midline tenderness, no C-spine tenderness, full range of motion, no CVA tenderness bilaterally Neuro: Oriented X 3.? No motor deficit.? No sensory deficit. CN 2-12 intact. Course Reevaluation(s) Reevaluation #1: COVID negative. Urine toxicology positive for cocaine. CBC within normal limits, no acute electrolyte abnormalities. Hanna <0.1, will give her her home dose of lithium. At this time she is placed in physician observation to allow more time to be evaluated by Behavioral Health Team, at this time patient is common cooperative. Her lithium was low so she was given her home dose here. She has no medical complaints at this time. Physical examination unchanged from initial. I will continue to monitor Time: 14:39 MDM - Psych MDM Narrative Medical decision making narrative: 1208 51 yo female well known to our facility presents to the ED w/ suicidal ideation w/ plan to jump off a bridge. Similar presentation in past. PE benign Cn 2-12 intact. Plan basic labs. Hanna level. Medical Records Attestation: I reviewed the patient's medical records. Lab Data Attestation: I reviewed the patient's lab results. Result diagrams: 11/07/21 14:29 11/07/21 14:29 Labs: Lab Results 11/07/21 11/07/21 11/07/21 Range/Units 12:31 12:38 14:29 WBC 6.4 (4.8-10.8) X10*3/uL RBC 4.43 (4.20-5.50) X10*6/uL Hgb 13.4 (12.0-16.0) g/dl Hct 40.9 (37.0-47.0) % MCV 92.3 (80.0-98.0) fL MCH 30.2 (27.0-33.0) pg MCHC 32.8 (31.0-35.0) g/dl RDW 12.7 (11.0-16.0) % Plt Count 253 D (160-400) X10*3/uL MPV 9.8 (9.4-12.3) fL Immature Gran % (Auto) 0.3 (0.0-0.4) % Neut % (Auto) 64.6 (45-73) % Lymph % (Auto) 28.4 (20-40) % Morrison % (Auto) 5.3 (2-11) % Eos % (Auto) 0.6 (0-4) % Baso % (Auto) 0.8 (0-2) % Lymph # (Auto) 1.8 (1.2-4.9) X10*3/uL Morrison # (Auto) 0.3 (0.1-1.2) X10*3/uL Eos # (Auto) 0.0 (0.0-0.4) X10*3/uL Baso # (Auto) 0.1 (0.0-0.2) X10*3/uL Abs Immat Gran (auto) 0.02 (0.00-0.03) X10*3/uL Absolute Neuts (auto) 4.1 (2.0-8.3) x10*3/uL Absolute Nucleated RBC 0.000 (0.0-0.012) X10*3/uL Nucleated RBC % (auto) 0.0 (0.0-0.2) /100WBC Sodium (135-145) mmol/L Potassium (3.3-5.1) mmol/L Chloride (96-108) mmol/L Carbon Dioxide (22-29) mmol/L Anion Gap (12-20) BUN (9-16) mg/dL Creatinine (0.5-1.4) mg/dL Estim Creat Clear Calc Estimated GFR Random Glucose (60-115) mg/dL Calcium (8.4-10.2) mg/dL Total Bilirubin (0.0-1.0) mg/dL AST (5-31) U/L ALT (0-31) U/L Alkaline Phosphatase (39-117) U/L Total Protein (6.5-8.0) g/dL Albumin (3.5-5.0) g/dL Urine Opiates Screen Not Detected (Not Detect) Urine Fentanyl Screen Not Detected (Not Detect) Ur Barbiturates Screen Not Detected (Not Detect) Ur Phencyclidine Scrn Not Detected (Not Detect) Ur Amphetamines Screen Not Detected (Not Detect) U Benzodiazepines Scrn Not Detected (Not Detect) Hanna (0.60-1.20) mmol/L Urine Cocaine Screen POSITIVE H (Not Detect) U Marijuana (THC) Screen Not Detected (Not Detect) Ethyl Alcohol mg/dL COVID-19 (ENDY) Negative (Negative) COVID-19 Clin Com See Note 11/07/21 11/07/21 11/07/21 Range/Units 14:29 14:29 14:29 WBC (4.8-10.8) X10*3/uL RBC (4.20-5.50) X10*6/uL Hgb (12.0-16.0) g/dl Hct (37.0-47.0) % MCV (80.0-98.0) fL MCH (27.0-33.0) pg MCHC (31.0-35.0) g/dl RDW (11.0-16.0) % Plt Count (160-400) X10*3/uL MPV (9.4-12.3) fL Immature Gran % (Auto) (0.0-0.4) % Neut % (Auto) (45-73) % Lymph % (Auto) (20-40) % Morrison % (Auto) (2-11) % Eos % (Auto) (0-4) % Baso % (Auto) (0-2) % Lymph # (Auto) (1.2-4.9) X10*3/uL Morrison # (Auto) (0.1-1.2) X10*3/uL Eos # (Auto) (0.0-0.4) X10*3/uL Baso # (Auto) (0.0-0.2) X10*3/uL Abs Immat Gran (auto) (0.00-0.03) X10*3/uL Absolute Neuts (auto) (2.0-8.3) x10*3/uL Absolute Nucleated RBC (0.0-0.012) X10*3/uL Nucleated RBC % (auto) (0.0-0.2) /100WBC Sodium 142 (135-145) mmol/L Potassium 4.2 (3.3-5.1) mmol/L Chloride 106 (96-108) mmol/L Carbon Dioxide 30 H (22-29) mmol/L Anion Gap 10 L (12-20) BUN 12 (9-16) mg/dL Creatinine 0.78 (0.5-1.4) mg/dL Estim Creat Clear Calc 110.7 Estimated GFR > 60 Random Glucose 105 (60-115) mg/dL Calcium 9.7 (8.4-10.2) mg/dL Total Bilirubin 0.3 (0.0-1.0) mg/dL AST 12 (5-31) U/L ALT 15 (0-31) U/L Alkaline Phosphatase 69 (39-117) U/L Total Protein 6.8 (6.5-8.0) g/dL Albumin 4.3 (3.5-5.0) g/dL Urine Opiates Screen (Not Detect) Urine Fentanyl Screen (Not Detect) Ur Barbiturates Screen (Not Detect) Ur Phencyclidine Scrn (Not Detect) Ur Amphetamines Screen (Not Detect) U Benzodiazepines Scrn (Not Detect) Hanna < 0.10 L (0.60-1.20) mmol/L Urine Cocaine Screen (Not Detect) U Marijuana (THC) Screen (Not Detect) Ethyl Alcohol < 10 mg/dL COVID-19 (ENDY) (Negative) COVID-19 Clin Com Critical Care Time Critical Care Time Critical Care Time: No Discharge Plan Discharge Clinical Impression: Suicidal ideation, Bipolar disorder Patient Disposition: Home, Self-Care Instructions: Bipolar Disorder (ED), Help Prevent Suicide (ED), Suicide Prevention (ED) Additional Instructions: Take your medications as prescribed. If you were prescribed antibiotics today, it is important that you take your medication to their entirety, do not skip any doses, do not finish them early. Follow-up with your primary care provider this week. Return to the emergency department with new or worsening symptoms. Such as worsening anxiety, depression or suicidal ideation. Chest pain, shortness of breath, fevers, chills, nausea, vomiting In case of emergency call 911 Prescriptions: No Action quetiapine 25 mg Tablet 25 mg PO BID PRN (Reason: anxiety) 30 Days Qty: 45 RF: 0 ropinirole 0.5 mg Tablet 0.5 mg PO BEDTIME 30 Days Qty: 30 RF: 0 valacyclovir 1 gram Tablet 1,000 mg PO BID 30 Days Qty: 60 RF: 0 prazosin 1 mg Capsule 2 mg PO BEDTIME 30 Days Qty: 60 RF: 0 olanzapine 5 mg Tablet 5 mg PO BEDTIME 30 Days Qty: 30 RF: 0 lithium carbonate 600 mg Capsule 600 mg PO BID 30 Days Qty: 60 RF: 0 trazodone 150 mg Tablet 150 mg PO BEDTIME 30 Days Qty: 30 RF: 0 nicotine 21 mg/24 hr Patch 24 Hour 21 mg transdermal DAILY 30 Days Qty: 30 RF: 0 omeprazole 20 mg Capsule,Delayed Release(Dr/Ec) 20 mg PO DAILY@0630 30 Days Qty: 30 RF: 0 gabapentin 100 mg Capsule 200 mg PO BID 30 Days Qty: 120 RF: 0 albuterol sulfate 90 mcg/actuation HFA aerosol inhaler 2 puff inhalation Q4-6H PRN (Reason: shortness of breath or wheezing) 30 Days Qty: 8.5 RF: 0 sertraline 50 mg Tablet 50 mg PO DAILY 30 Days Qty: 30 RF: 0 cholecalciferol (vitamin D3) 25 mcg (1,000 unit) Tablet 25 mcg PO DAILY 30 Days Qty: 30 RF: 0 ferrous sulfate 324 mg (65 mg iron) Tablet,Delayed Release (Dr/Ec) 324 mg PO DAILY 30 Days Qty: 30 RF: 0 fluticasone propion-salmeterol [AirDuo RespiClick] 232-14 mcg/actuation Aerosol Powdr Breath Activated 1 inh INHALATION BID 30 Days Qty: 1 RF: 0 omega 1-lhb-jvq-fish oil [Fish Oil] 1,000 mg (120 mg-180 mg) capsule 1 cap PO BID 30 Days Qty: 60 RF: 0 Dermacerin Cream 1 appl topical TID Qty: 1 RF: 0 Aspercreme with Aloe 10 % Cream 1 appl topical TID PRN (Reason: neck pain) Qty: 1 RF: 0 Referrals: ED Physician,Generic [Physician] - 2 days Stand Alone Forms: Work/School Release
[2021-11-07 12:41] VITALS: BP 129/85; BP 130/80; PULSE 88; RESP 16; TEMP 36.9; O2SAT 94; O2SAT 95; BMI 58.1
[2021-11-07 12:59] LABS: Amphetamine Screen Urine Not Detected (Not Detect); Barbiturates, Urine Not Detected (Not Detect); Benzodiazepines Screen Urine Not Detected (Not Detect); Cannabinoid Screen Urine Not Detected (Not Detect); Cocaine Screen Urine POSITIVE (Not Detect); Fentanyl, urine Not Detected (Not Detect); Opiate Screen Urine Not Detected (Not Detect); Phencyclidine Screen Urine Not Detected (Not Detect)
[2021-11-07 12:59] LABS: COVID-19 Test Negative (Negative)
[2021-11-07 14:35] LABS: Basophils Absolute Auto 0.1 X10*3/uL (0.0-0.2); Basophils Percent Auto 0.8 % (0-2); Eosinophils Percent Auto 0.6 % (0-4); Hematocrit 40.9 % (37.0-47.0); Hemoglobin 13.4 g/dl (12.0-16.0); Imm Gran Abs Auto 0.02 X10*3/uL (0.00-0.03); Imm Gran Pct Auto 0.3 % (0.0-0.4); Lymphocytes Absolute Auto 1.8 X10*3/uL (1.2-4.9); Lymphocytes Percent Auto 28.4 % (20-40); MANUAL DIFF FLAG NO; Mean Corpuscular HGB Conc 32.8 g/dl (31.0-35.0); Mean Corpuscular Hemoglobin 30.2 pg (27.0-33.0); Mean Corpuscular Volume 92.3 fL (80.0-98.0); Mean Platelet Volume 9.8 fL (9.4-12.3); Monocytes Absolute Auto 0.3 X10*3/uL (0.1-1.2); Monocytes Percent Auto 5.3 % (2-11); Neutrophils Absolute Auto 4.1 x10*3/uL (2.0-8.3); Neutrophils Percent Auto 64.6 % (45-73); Platelet Count 253 X10*3/uL (160-400); Red Blood Count 4.43 X10*6/uL (4.20-5.50); Red Cell Distribution Width 12.7 % (11.0-16.0); White Blood Count 6.4 X10*3/uL (4.8-10.8)
[2021-11-07 14:43] LABS: Lithium < 0.10 mmol/L (0.60-1.20)
[2021-11-07 14:47] LABS: Ethanol < 10 mg/dL
[2021-11-07 14:50] LABS: Alanine Aminotransferase 15 U/L (0-31); Albumin Level 4.3 g/dL (3.5-5.0); Alkaline Phosphatase 69 U/L (39-117); Anion Gap 10 (12-20); Aspartate Amino Transferase 12 U/L (5-31); Bilirubin Total 0.3 mg/dL (0.0-1.0); Blood Urea Nitrogen 12 mg/dL (9-16); Calcium 9.7 mg/dL (8.4-10.2); Carbon Dioxide 30 mmol/L (22-29); Chloride 106 mmol/L (96-108); Creatinine Clr Calc Pharmacy 110.7; Estimated Glomerular Filt Rate > 60; Glucose Random 105 mg/dL (60-115); Potassium 4.2 mmol/L (3.3-5.1); Sodium 142 mmol/L (135-145); Total Protein 6.8 g/dL (6.5-8.0)
[2021-11-07] MEDS: Lithium Carbonate 300 MG CAPSULE 600 MG PO (15:26)
[2021-11-07 17:54] VITALS: BP 107/69; PULSE 83; TEMP 36.3; O2SAT 96
[2021-11-07] MEDS: Ondansetron ODT 4 MG TAB.RAPDIS TRANSLINGU (18:42)
--- NOTE | 2021-11-07 22:30 | PC.NURSE ---
Patient resting comfortably in bed awaiting bhn eval.
[2021-11-07] MEDS: Acetaminophen 325 MG TABLET 650 MG PO (23:53)
--- NOTE | 2021-11-08 07:45 | PC.NURSE ---
pt is now sleeping, states she has had a headache since she tested positive for covid last year.
--- NOTE | 2021-11-08 07:50 | PC.NURSE ---
pt nause and vomiting, headache, provider called for medications.
--- NOTE | 2021-11-08 08:03 | PC.NURSE ---
pt states every time she eats she vomits. pt just finished her breakfast tray and is vomiting. provider made aware and will be over to see the pt.
[2021-11-08] MEDS: Ondansetron ODT 4 MG TAB.RAPDIS TRANSLINGU (08:18)
[2021-11-08 08:29] VITALS: BP 125/89; PULSE 67; O2SAT 96
[2021-11-08] MEDS: Acetaminophen 325 MG TABLET 650 MG PO (08:50)
--- NOTE | 2021-11-08 10:33 | PC.NURSE ---
spider found in pt room. pt has a small raised area on her right lower forarm. no redness provider made aware, bacatraicin applied and bandaid.
[2021-11-08 10:35] VITALS: RESP 16
[2021-11-08 17:13] VITALS: BP 112/64; PULSE 72; RESP 18; TEMP 36.2; O2SAT 95
[2021-11-08] MEDS: Prazosin HCL 1 MG CAPSULE 2 MG PO (21:06)
[2021-11-08 21:07] VITALS: BP 107/66; PULSE 69
[2021-11-08] MEDS: OLANZapine 5 MG TABLET PO (21:07)
[2021-11-08] MEDS: rOPINIRole HCL 0.5 MG TABLET PO (21:07)
[2021-11-08] MEDS: Gabapentin 100 MG CAPSULE 200 MG PO (21:07)
[2021-11-08] MEDS: traZODone HCL 50 MG TABLET 150 MG PO (21:07)
[2021-11-08] MEDS: Lithium Carbonate 300 MG CAPSULE 600 MG PO (21:07)
--- NOTE | 2021-11-09 | ECG_ITS ---
Test Reason : medical clearance Blood Pressure : / mmHG Vent. Rate : 078 BPM Atrial Rate : 078 BPM P-R Int : 144 ms QRS Dur : 084 ms QT Int : 396 ms P-R-T Axes : 022 039 032 degrees QTc Int : 451 ms Normal sinus rhythm Normal ECG When compared with ECG of 21-OCT-2021 09:10, No significant change was found Referred By: Howard Shannon Electronically Signed By:ALEJANDRO MCCLELLAN
--- NOTE | 2021-11-09 05:05 | PC.NURSE ---
Patient slept through the night, no distress observed/reported, behavior appropriate and cooperative, medication compliant, VSS, ambulated independently with walker, appetite adequate, patient's disposition per [facility] is voluntary inpatient bed search, no update on bed search, will continue to monitor.
[2021-11-09] MEDS: Omeprazole 20 MG CAPSULE.DR PO (06:23)
[2021-11-09 06:28] VITALS: BP 103/60; PULSE 62; RESP 16; TEMP 36.9; O2SAT 96
--- NOTE | 2021-11-09 07:20 | PC.NURSE ---
OOB TO BR. ATE BKT. VOLUNTARY BEDSEARCH
[2021-11-09 08:25] VITALS: BP 109/63; PULSE 88; RESP 12; TEMP 36.8; O2SAT 99
[2021-11-09] MEDS: Cholecalciferol (Vitamin D3) 25 MCG TABLET PO (08:40)
[2021-11-09] MEDS: Lithium Carbonate 300 MG CAPSULE 600 MG PO ×2 (08:40→20:30)
[2021-11-09] MEDS: Ferrous Sulfate 324 MG TABLET.DR PO (08:40)
[2021-11-09] MEDS: Gabapentin 100 MG CAPSULE 200 MG PO ×2 (08:40→20:30)
[2021-11-09] MEDS: Nicotine 21 MG PATCH.TD24 TRANSDERMA (08:41)
[2021-11-09] MEDS: Sertraline HCL 50 MG TABLET PO (08:41)
[2021-11-09] MEDS: Fluticasone/Vilanterol 200/25 BLST.W.DEV 1 PUFF INHALE (09:47)
[2021-11-09] MEDS: Ibuprofen 800 MG TABLET PO (13:49)
[2021-11-09 16:27] LABS: COVID-19 Test Negative (Negative)
[2021-11-09 16:49] LABS: MANUAL DIFF FLAG NO
[2021-11-09 16:50] LABS: Basophils Absolute Auto 0.1 X10*3/uL (0.0-0.2); Eosinophils Absolute Auto 0.1 X10*3/uL (0.0-0.4); Eosinophils Percent Auto 1.6 % (0-4); Hematocrit 43.3 % (37.0-47.0); Hemoglobin 13.8 g/dl (12.0-16.0); Imm Gran Abs Auto 0.01 X10*3/uL (0.00-0.03); Imm Gran Pct Auto 0.2 % (0.0-0.4); Lymphocytes Absolute Auto 2.4 X10*3/uL (1.2-4.9); Lymphocytes Percent Auto 38.6 % (20-40); Mean Corpuscular HGB Conc 31.9 g/dl (31.0-35.0); Mean Corpuscular Hemoglobin 30.1 pg (27.0-33.0); Mean Corpuscular Volume 94.5 fL (80.0-98.0); Mean Platelet Volume 9.8 fL (9.4-12.3); Monocytes Absolute Auto 0.4 X10*3/uL (0.1-1.2); Monocytes Percent Auto 6.9 % (2-11); Neutrophils Absolute Auto 3.2 x10*3/uL (2.0-8.3); Neutrophils Percent Auto 51.7 % (45-73); Platelet Count 267 X10*3/uL (160-400); Red Blood Count 4.58 X10*6/uL (4.20-5.50); Red Cell Distribution Width 12.6 % (11.0-16.0); White Blood Count 6.1 X10*3/uL (4.8-10.8)
[2021-11-09 17:06] LABS: Anion Gap 11 (12-20); Blood Urea Nitrogen 20 mg/dL (9-16); Calcium 10.3 mg/dL (8.4-10.2); Carbon Dioxide 31 mmol/L (22-29); Chloride 103 mmol/L (96-108); Estimated Glomerular Filt Rate > 60; Glucose Random 78 mg/dL (60-115); Potassium 4.4 mmol/L (3.3-5.1); Sodium 141 mmol/L (135-145)
--- NOTE | 2021-11-09 17:40 | PC.NURSE ---
Pt alert and oriented x4, calm and cooperative. States 3/10 pain in B/L legs. Ambulating with walker without issues. Voided multiple times this shift. Resting comfortably in bed. Will continue to monitor.
--- NOTE | 2021-11-09 17:50 | PC.NURSE ---
Nurse to Nurse report given to MELONY Best at 1750.
[2021-11-09 17:51] VITALS: BP 135/91; PULSE 86; RESP 16; TEMP 37.1; O2SAT 96
[2021-11-09] MEDS: traZODone HCL 50 MG TABLET 150 MG PO (20:30)
[2021-11-09] MEDS: OLANZapine 5 MG TABLET PO (20:30)
[2021-11-09] MEDS: rOPINIRole HCL 0.5 MG TABLET PO (20:30)
[2021-11-09] MEDS: Prazosin HCL 1 MG CAPSULE 2 MG PO (20:31)
[2021-11-09 20:33] VITALS: BP 118/73; PULSE 87; RESP 20; TEMP 36.8; O2SAT 95
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
[2021-11-09 23:28] VITALS: PULSE 76; O2SAT 93
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
[2021-11-10 08:35] VITALS: BP 113/65; PULSE 80; RESP 18; TEMP 36.6; O2SAT 95
[2021-11-10] MEDS: Lithium Carbonate 300 MG CAPSULE 600 MG PO ×2 (08:36→19:56)
[2021-11-10] MEDS: Cholecalciferol (Vitamin D3) 25 MCG TABLET PO (08:37)
[2021-11-10] MEDS: Omeprazole 20 MG CAPSULE.DR PO (08:37)
[2021-11-10] MEDS: Sertraline HCL 50 MG TABLET PO (08:37)
[2021-11-10] MEDS: Gabapentin 100 MG CAPSULE 200 MG PO ×2 (08:37→19:56)
[2021-11-10] MEDS: Ferrous Sulfate 324 MG TABLET.DR PO (08:37)
[2021-11-10 08:55] LABS: Cholesterol 176 mg/dL; HDL Cholesterol 49 mg/dL; LDL Cholesterol Calculated 91 mg/dl; Magnesium 1.9 mg/dL (1.6-2.6); Triglycerides 181 mg/dL
[2021-11-10 08:58] LABS: Estimated Average Glucose 108 mg/dL; Hemoglobin A1C 130.1212 umol/L; Hemoglobin A1c % 5.4 %
[2021-11-10] MEDS: Acetaminophen 325 MG TABLET 650 MG PO ×2 (09:13→17:11)
[2021-11-10] MEDS: Nicotine 21 MG PATCH.TD24 TRANSDERMA (09:15)
[2021-11-10 09:36] LABS: Folate 8.6 ng/mL (> or = 4.0); Vitamin B12 406 pg/mL (200-900)
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
[2021-11-10 18:00] VITALS: BP 130/68; PULSE 90; RESP 16; RESP 18; TEMP 36.1; O2SAT 96
[2021-11-10] MEDS: Prazosin HCL 1 MG CAPSULE 4 MG PO (19:54)
[2021-11-10] MEDS: rOPINIRole HCL 0.5 MG TABLET PO (19:54)
[2021-11-10] MEDS: traZODone HCL 50 MG TABLET 150 MG PO (21:56)
[2021-11-10] MEDS: OLANZapine 5 MG TABLET PO (21:56)
[2021-11-11] MEDS: Cholecalciferol (Vitamin D3) 25 MCG TABLET PO (08:08)
[2021-11-11] MEDS: Nicotine 21 MG PATCH.TD24 TRANSDERMA (08:08)
[2021-11-11] MEDS: Acetaminophen 325 MG TABLET 650 MG PO ×2 (08:09→16:21)
[2021-11-11] MEDS: Omeprazole 20 MG CAPSULE.DR PO (08:09)
[2021-11-11] MEDS: Sertraline HCL 50 MG TABLET PO (08:09)
[2021-11-11] MEDS: Lithium Carbonate 300 MG CAPSULE 600 MG PO ×2 (08:09→20:02)
[2021-11-11] MEDS: Gabapentin 100 MG CAPSULE 200 MG PO ×2 (08:09→20:02)
[2021-11-11] MEDS: Ferrous Sulfate 324 MG TABLET.DR PO (08:09)
[2021-11-11] MEDS: Fluticasone/Vilanterol 200/25 BLST.W.DEV 1 PUFF INHALE (08:16)
[2021-11-11 08:47] VITALS: BP 113/55; PULSE 81; RESP 16; TEMP 36.8; O2SAT 95
[2021-11-11] MEDS: hydrOXYzine HCL 25 MG TABLET PO (09:58)
--- NOTE | 2021-11-11 14:08 | P.PNPSI_ITS ---
Subjective Subjective Date of Service: 11/11/21 Reason For Visit: mood disorder Interim History: pt found lying in bed sleeping around noon. somewhat rousable, but does not rally for the interview. has no questions or complaints for MD. incongruently says her mood is good and then endorses SI. per staff, attending groups. dep 06/09, SI 08/09. denies anx/HI/AVH. safe on unit. soc ial with staff and peers. taking meds, eating well. got trazodone and zyprexa at 2200, tyl at 0500. Mental Status Exam Mental Status Exam Narrative: adequately dressed and groomed, obese, lying in bed. minimally cooperative with interview. no PMA/PMR. speech nml in rate, decr amount, decr loudness, flattened tone, nml latency. thoughts linear and logical. affect constricted, normo-intense, non-labile, c/w context. mood good. +SI. no HI/AVH expressed. Diagnostics Vital Signs (24Hr): Vital Signs - 24 hr 11/10/21 18:00 11/11/21 08:47 Temperature 96.9 F 98.2 F Pulse Rate 90 81 Respiratory Rate 16 16 Blood Pressure 130/68 113/55 L Pulse Oximetry 96 95 BMI result Body Mass Index 58.1 Labs Results: 11/09/21 16:44 11/09/21 16:44 Labs: Laboratory Results - last 48 hr 11/09/21 11/09/21 11/09/21 16:03 16:44 16:44 WBC 6.1 RBC 4.58 Hgb 13.8 Hct 43.3 MCV 94.5 MCH 30.1 MCHC 31.9 RDW 12.6 Plt Count 267 MPV 9.8 Immature Gran % (Auto) 0.2 Neut % (Auto) 51.7 Lymph % (Auto) 38.6 [place] % (Auto) 6.9 Eos % (Auto) 1.6 Baso % (Auto) 1.0 Lymph # (Auto) 2.4 [place] # (Auto) 0.4 Eos # (Auto) 0.1 Baso # (Auto) 0.1 Abs Immat Gran (auto) 0.01 Absolute Neuts (auto) 3.2 Absolute Nucleated RBC 0.000 Nucleated RBC % (auto) 0.0 Sodium 141 Potassium 4.4 Chloride 103 Carbon Dioxide 31 H Anion Gap 11 L BUN 20 H D Creatinine 0.80 Estim Creat Clear Calc 108.0 Estimated GFR > 60 Random Glucose 78 Estimat Average Glucose Hemoglobin A1c % Calcium 10.3 H D Magnesium Triglycerides Cholesterol LDL Cholesterol, Calc HDL Cholesterol Vitamin B12 Folate TSH Free T4 COVID-19 (ENDY) Negative COVID-19 Clin Com See Note 11/10/21 11/10/21 11/10/21 08:24 08:24 08:24 WBC RBC Hgb Hct MCV MCH MCHC RDW Plt Count MPV Immature Gran % (Auto) Neut % (Auto) Lymph % (Auto) [place] % (Auto) Eos % (Auto) Baso % (Auto) Lymph # (Auto) [place] # (Auto) Eos # (Auto) Baso # (Auto) Abs Immat Gran (auto) Absolute Neuts (auto) Absolute Nucleated RBC Nucleated RBC % (auto) Sodium Potassium Chloride Carbon Dioxide Anion Gap BUN Creatinine Estim Creat Clear Calc Estimated GFR Random Glucose Estimat Average Glucose 108 Hemoglobin A1c % 5.4 Calcium Magnesium 1.9 Triglycerides 181 Cholesterol 176 LDL Cholesterol, Calc 91 HDL Cholesterol 49 Vitamin B12 406 Folate 8.6 TSH 1.20 Free T4 1.10 COVID-19 (ENDY) COVID-19 Clin Com Medications Medications Current Medications Acetaminophen (Acetaminophen 325 Mg Tablet) 650 mg PO Q6H PRN PRN Reason: Headache/Pain Mild Scale (1-3) Last Admin: 11/11/21 08:09 Dose: 650 mg Documented by: Al Hydroxide/Mg Hydroxide (Magnesium Hydrox/Alum Hydrox 30 Ml Oral.Susp) 30 ml PO Q6H PRN PRN Reason: Heartburn/Nausea Al Hydroxide/Mg Hydroxide (Magnesium Hydrox/Alum Hydrox 30 Ml Oral.Susp) 30 ml PO Q6H PRN PRN Reason: Heartburn/Nausea Albuterol Sulfate (Albuterol Sulfate 90 Mcg 8 Gm Inhaler) 2 puff INHALE Q4H PRN PRN Reason: shortness of breath or wheezing Ferrous Sulfate (Ferrous Sulfate 324 Mg Tablet.) 324 mg PO DAILY [facility] Last Admin: 11/11/21 08:09 Dose: 324 mg Documented by: Fluticasone/Vilanterol (Fluticasone/Vilanterol 200/25 Blst.W.Dev) 1 puff INHALE RDAILY [facility] Last Admin: 11/11/21 08:16 Dose: 1 puff Documented by: Gabapentin (Gabapentin 100 Mg Capsule) 200 mg PO BID [facility] Last Admin: 11/11/21 08:09 Dose: 200 mg Documented by: Hydroxyzine HCl (Hydroxyzine Hcl 25 Mg Tablet) 25 mg PO Q6H PRN PRN Reason: Anxiety Last Admin: 11/11/21 09:58 Dose: 25 mg Documented by: [place] Carbonate ([place] Carbonate 300 Mg Capsule) 600 mg PO BID [facility] Last Admin: 11/11/21 08:09 Dose: 600 mg Documented by: Magnesium Hydroxide (Milk Of Magnesia 30 Ml Oral.Susp) 30 ml PO DAILY PRN PRN Reason: Constipation Magnesium Hydroxide (Milk Of Magnesia 30 Ml Oral.Susp) 30 ml PO DAILY PRN PRN Reason: Constipation Nicotine (Nicotine 21 Mg Patch.Td24) 21 mg TRANSDERMA DAILY [facility] Last Admin: 11/11/21 08:08 Dose: 21 mg Documented by: Olanzapine (Olanzapine 5 Mg Tablet) 5 mg PO BEDTIME [facility] Last Admin: 11/10/21 21:56 Dose: 5 mg Documented by: Omeprazole (Omeprazole 20 Mg Capsule.Dr) 20 mg PO DAILY@0630 [facility] Last Admin: 11/11/21 08:09 Dose: 20 mg Documented by: Prazosin HCl (Prazosin Hcl 1 Mg Capsule) 4 mg PO BEDTIME [facility]; Protocol Last Admin: 11/10/21 19:54 Dose: 4 mg Documented by: Quetiapine Fumarate (Quetiapine Fumarate 25 Mg Tablet) 25 mg PO BID PRN PRN Reason: anxiety Ropinirole HCl (Ropinirole Hcl 0.5 Mg Tablet) 0.5 mg PO BEDTIME [facility] Last Admin: 11/10/21 19:54 Dose: 0.5 mg Documented by: Sertraline HCl (Sertraline Hcl 50 Mg Tablet) 50 mg PO DAILY [facility] Last Admin: 11/11/21 08:09 Dose: 50 mg Documented by: Simethicone (Simethicone 80 Mg Tab.Chew) 80 mg PO QIDWMHS PRN PRN Reason: gas relief Trazodone HCl (Trazodone Hcl 50 Mg Tablet) 150 mg PO BEDTIME [facility] Last Admin: 11/10/21 21:56 Dose: 150 mg Documented by: Valacyclovir HCl (Valacycyclovir Hcl 1,000 Mg Tablet) 1,000 mg PO BID [facility] Last Admin: 11/11/21 08:08 Dose: 1,000 mg Documented by: Vitamin D (Cholecalciferol (Vitamin D3) 25 Mcg Tablet) 25 mcg PO DAILY [facility] Last Admin: 11/11/21 08:08 Dose: 25 mcg Documented by: Allergies Allergies Allergy/AdvReac Type Severity Reaction Status Date / Time aspirin [Aspirin] Allergy Severe HIVES,THROAT Verified 10/13/21 04:51 SWELLS bee pollen [BEE STINGS] Allergy Severe ANAPHYLAXIS Verified 10/13/21 04:51 diphenhydramine Allergy Severe hives, Verified 10/13/21 04:51 [From BENADRYL ALLERGY] throat swells Penicillins [PCN] Allergy Severe HIVES Verified 10/13/21 04:51 THROAT SWELLS Sulfa (Sulfonamide Allergy Intermediate HIVES Verified 10/13/21 04:51 Antibiotics) [SULFA (SULFONAMIDE ANTIBIOTICS)] tramadol [TRAMADOL] Allergy Intermediate ITCHING Verified 10/13/21 04:51 latex [LATEX] Allergy Unknown UNKNOWN Verified 10/13/21 04:51 penicillin G Allergy Unknown Unknown Verified 10/13/21 04:51 levofloxacin [From Levaquin] Allergy Hives Verified 10/13/21 04:51 bee stings Allergy Unknown Unknown Uncoded 10/13/21 04:51 D[employer] Allergy Unknown Unknown Uncoded 10/13/21 04:51 sulfa drugs Allergy Unknown Unknown Uncoded 10/13/21 04:51 Assessment & Plan Assessment & Plan (1) Suicidal ideation: Status: Acute Code(s): R45.851 - Suicidal ideations Assessment and Plan: ongoing (2) PTSD (post-traumatic stress disorder): Status: Acute Code(s): F43.10 - Post-traumatic stress disorder, unspecified Assessment and Plan: continue current regimen (3) Borderline personality disorder: Status: Acute Code(s): F60.3 - Borderline personality disorder Assessment and Plan: brief inpatient stay, if feasible (4) Cocaine use disorder: Status: Acute Code(s): F14.10 - Cocaine abuse, uncomplicated Assessment and Plan: abstain Assessment and Plan: continue outpt meds. plan to dispo to [facility] respite bed I spent minutes with the patient and/or on the patient floor today, greater than?50% of which was spent counseling/coordinating care. Reason for contiued inpatient stay Substantial Risk for: harm to self
[2021-11-11] MEDS: Capsaicin 0.025% Cream 60 GM TUBE 1 APPL TOPICAL (17:17)
--- NOTE | 2021-11-11 17:45 | PC.NURSE ---
PT reporting that she is having increased headaches and that the bump behind her ear has been growing and causing her pain. Growth noted behind her left ear. PT reports that she had a scan of her head done last time she was inpatient and asked for those results. PT was told that the MD has left for the day but that this RN will follow up with him in the morning to ask him to discuss those results.
[2021-11-11] MEDS: rOPINIRole HCL 0.5 MG TABLET PO (20:02)
[2021-11-11] MEDS: Prazosin HCL 1 MG CAPSULE 4 MG PO (20:02)
[2021-11-11 20:04] VITALS: BP 183/79; PULSE 95; TEMP 36.7; O2SAT 93
[2021-11-11] MEDS: OLANZapine 5 MG TABLET PO (21:25)
[2021-11-11] MEDS: traZODone HCL 50 MG TABLET 150 MG PO (21:26)
[2021-11-11 21:35] VITALS: BP 116/54; PULSE 76
[2021-11-12 07:00] VITALS: BMI 50.1
[2021-11-12 08:20] VITALS: BP 121/68; PULSE 82; RESP 18; TEMP 36.7; O2SAT 95
[2021-11-12] MEDS: Acetaminophen 325 MG TABLET 650 MG PO (08:39)
[2021-11-12] MEDS: Sertraline HCL 50 MG TABLET PO (08:40)
[2021-11-12] MEDS: Omeprazole 20 MG CAPSULE.DR PO (08:40)
[2021-11-12] MEDS: Fluticasone/Vilanterol 200/25 BLST.W.DEV 1 PUFF INHALE (08:40)
[2021-11-12] MEDS: Gabapentin 100 MG CAPSULE 200 MG PO ×2 (08:40→20:44)
[2021-11-12] MEDS: Ferrous Sulfate 324 MG TABLET.DR PO (08:40)
[2021-11-12] MEDS: Lithium Carbonate 300 MG CAPSULE 600 MG PO ×2 (08:40→20:43)
[2021-11-12] MEDS: Nicotine 21 MG PATCH.TD24 TRANSDERMA (08:41)
[2021-11-12] MEDS: Cholecalciferol (Vitamin D3) 25 MCG TABLET PO (08:41)
[2021-11-12] MEDS: OXcarbazepine 150 MG TABLET PO ×2 (12:21→20:43)
[2021-11-12] MEDS: Capsaicin 0.025% Cream 60 GM TUBE 1 APPL TOPICAL ×3 (12:23→20:48)
--- NOTE | 2021-11-12 12:33 | HO.PSYCHPN ---
Subjective Subjective Date of Service: 11/12/21 Reason For Visit: mood disorder Interim History: pt seen in her room, lying in bed, lights out. she indicated she did not wish to leave her bed for the interview. she c/o insomnia and agreed to increase prazosin to 5 mg QHS and trazodone to 200 mg. her EEG result and neuro's rec to start trileptal was discussed, and she agreed to start trileptal 150 BID, as per neuro rec. she is requesting a dietary consult because she is eating too much and wants to eat more healthily. endorsed SI with plan to jump from a height. per staff, pt reports 8/10 anxiety and depression. Mental Status Exam Mental Status Exam Narrative: adequately dressed and groomed, obese, lying in bed. cooperative with interview. no PMA/PMR. speech nml in rate, amount, loudness. flattened tone, nml latency. thoughts linear and logical. affect constricted, normo-intense, non-labile, c/w context. +SI. no HI/AVH expressed. Diagnostics Vital Signs (24Hr): Vital Signs - 24 hr 11/11/21 20:04 11/11/21 21:35 11/12/21 08:20 Temperature 98.0 F 98.0 F Pulse Rate 95 76 82 Respiratory Rate 18 Blood Pressure 183/79 H 116/54 L 121/68 Pulse Oximetry 93 95 BMI result Body Mass Index 58.1 Labs Results: 11/09/21 16:44 11/09/21 16:44 Medications Medications Current Medications Acetaminophen (Acetaminophen 325 Mg Tablet) 975 mg PO QID [facility] Al Hydroxide/Mg Hydroxide (Magnesium Hydrox/Alum Hydrox 30 Ml Oral.Susp) 30 ml PO Q6H PRN PRN Reason: Heartburn/Nausea Al Hydroxide/Mg Hydroxide (Magnesium Hydrox/Alum Hydrox 30 Ml Oral.Susp) 30 ml PO Q6H PRN PRN Reason: Heartburn/Nausea Albuterol Sulfate (Albuterol Sulfate 90 Mcg 8 Gm Inhaler) 2 puff INHALE Q4H PRN PRN Reason: shortness of breath or wheezing Capsaicin (Capsaicin 0.025% Cream 60 Gm Tube) 1 appl TOPICAL QID PRN; Protocol PRN Reason: Pain, Moderate (Pain Scale 4-6 Last Admin: 11/12/21 12:23 Dose: 1 appl Documented by: Ferrous Sulfate (Ferrous Sulfate 324 Mg Tablet.) 324 mg PO DAILY [facility] Last Admin: 11/12/21 08:40 Dose: 324 mg Documented by: Fluticasone/Vilanterol (Fluticasone/Vilanterol 200/25 Blst.W.Dev) 1 puff INHALE RDAILY [facility] Last Admin: 11/12/21 08:40 Dose: 1 puff Documented by: Gabapentin (Gabapentin 100 Mg Capsule) 200 mg PO BID [facility] Last Admin: 11/12/21 08:40 Dose: 200 mg Documented by: Hydroxyzine HCl (Hydroxyzine Hcl 25 Mg Tablet) 25 mg PO Q6H PRN PRN Reason: Anxiety Last Admin: 11/11/21 09:58 Dose: 25 mg Documented by: [place] Carbonate ([place] Carbonate 300 Mg Capsule) 600 mg PO BID [facility] Last Admin: 11/12/21 08:40 Dose: 600 mg Documented by: Magnesium Hydroxide (Milk Of Magnesia 30 Ml Oral.Susp) 30 ml PO DAILY PRN PRN Reason: Constipation Magnesium Hydroxide (Milk Of Magnesia 30 Ml Oral.Susp) 30 ml PO DAILY PRN PRN Reason: Constipation Nicotine (Nicotine 21 Mg Patch.Td24) 21 mg TRANSDERMA DAILY [facility] Last Admin: 11/12/21 08:41 Dose: 21 mg Documented by: Olanzapine (Olanzapine 5 Mg Tablet) 5 mg PO BEDTIME [facility] Last Admin: 11/11/21 21:25 Dose: 5 mg Documented by: Omeprazole (Omeprazole 20 Mg Capsule.) 20 mg PO DAILY@0630 [facility] Last Admin: 11/12/21 08:40 Dose: 20 mg Documented by: Oxcarbazepine (Oxcarbazepine 150 Mg Tablet) 150 mg PO BID [facility] Last Admin: 11/12/21 12:21 Dose: 150 mg Documented by: Prazosin HCl (Prazosin Hcl 1 Mg Capsule) 5 mg PO BEDTIME [facility]; Protocol Quetiapine Fumarate (Quetiapine Fumarate 25 Mg Tablet) 25 mg PO BID PRN PRN Reason: anxiety Ropinirole HCl (Ropinirole Hcl 0.5 Mg Tablet) 0.5 mg PO BEDTIME [facility] Last Admin: 11/11/21 20:02 Dose: 0.5 mg Documented by: Sertraline HCl (Sertraline Hcl 50 Mg Tablet) 50 mg PO DAILY [facility] Last Admin: 11/12/21 08:40 Dose: 50 mg Documented by: Simethicone (Simethicone 80 Mg Tab.Chew) 80 mg PO QIDWMHS PRN PRN Reason: gas relief Trazodone HCl (Trazodone Hcl 100 Mg Tablet) 200 mg PO BEDTIME [facility] Valacyclovir HCl (Valacycyclovir Hcl 1,000 Mg Tablet) 1,000 mg PO BID [facility] Last Admin: 11/12/21 08:41 Dose: 1,000 mg Documented by: Vitamin D (Cholecalciferol (Vitamin D3) 25 Mcg Tablet) 25 mcg PO DAILY [facility] Last Admin: 11/12/21 08:41 Dose: 25 mcg Documented by: Allergies Allergies Allergy/AdvReac Type Severity Reaction Status Date / Time aspirin [Aspirin] Allergy Severe HIVES,THROAT Verified 10/13/21 04:51 SWELLS bee pollen [BEE STINGS] Allergy Severe ANAPHYLAXIS Verified 10/13/21 04:51 diphenhydramine Allergy Severe hives, Verified 10/13/21 04:51 [From BENADRYL ALLERGY] throat swells Penicillins [PCN] Allergy Severe HIVES Verified 10/13/21 04:51 THROAT SWELLS Sulfa (Sulfonamide Allergy Intermediate HIVES Verified 10/13/21 04:51 Antibiotics) [SULFA (SULFONAMIDE ANTIBIOTICS)] tramadol [TRAMADOL] Allergy Intermediate ITCHING Verified 10/13/21 04:51 latex [LATEX] Allergy Unknown UNKNOWN Verified 10/13/21 04:51 penicillin G Allergy Unknown Unknown Verified 10/13/21 04:51 levofloxacin [From Levaquin] Allergy Hives Verified 10/13/21 04:51 bee stings Allergy Unknown Unknown Uncoded 10/13/21 04:51 [employer] Allergy Unknown Unknown Uncoded 10/13/21 04:51 sulfa drugs Allergy Unknown Unknown Uncoded 10/13/21 04:51 Assessment & Plan Assessment & Plan (1) Suicidal ideation: Status: Acute Code(s): R45.851 - Suicidal ideations Assessment and Plan: ongoing (2) PTSD (post-traumatic stress disorder): Status: Acute Code(s): F43.10 - Post-traumatic stress disorder, unspecified Assessment and Plan: continue current regimen aside from increasing trazodone to 200 mg QHS as of 11/12 and increasing prazosin to 5 mg QHS as of 1/13. (3) Borderline personality disorder: Status: Acute Code(s): F60.3 - Borderline personality disorder Assessment and Plan: brief inpatient stay, if feasible (4) Cocaine use disorder: Status: Acute Code(s): F14.10 - Cocaine abuse, uncomplicated Assessment and Plan: abstain (5) Abnormal EEG: Status: Acute Code(s): R94.01 - Abnormal electroencephalogram [EEG] Assessment and Plan: start trileptal 150 BID as per neuro rec. (6) Parotid mass: Status: Acute Code(s): K11.8 - Other diseases of salivary glands Assessment and Plan: have requested oncology weigh in on the subject (7) Carotid stenosis: Status: Acute Code(s): I65.29 - Occlusion and stenosis of unspecified carotid artery Assessment and Plan: F/U with outpt providers Assessment and Plan: continue outpt meds aside from as noted above. plan to dispo to [facility] respite bed I spent minutes with the patient and/or on the patient floor today, greater than?50% of which was spent counseling/coordinating care. Reason for contiued inpatient stay Substantial Risk for: harm to self
[2021-11-12] MEDS: Acetaminophen 325 MG TABLET 975 MG PO ×3 (12:59→20:44)
[2021-11-12] MEDS: hydrOXYzine HCL 25 MG TABLET PO (13:41)
[2021-11-12] MEDS: Magnesium Hydrox/Alum Hydrox 30 ML ORAL.SUSP PO (20:08)
[2021-11-12] MEDS: Prazosin HCL 1 MG CAPSULE 5 MG PO (20:43)
[2021-11-12] MEDS: rOPINIRole HCL 0.5 MG TABLET PO (20:43)
[2021-11-12] MEDS: traZODone HCL 100 MG TABLET 200 MG PO (20:44)
[2021-11-12] MEDS: OLANZapine 5 MG TABLET PO (20:44)
[2021-11-12 20:53] VITALS: BP 113/57; PULSE 77; TEMP 36.3; O2SAT 93
[2021-11-13 07:55] VITALS: BP 111/60; PULSE 70; RESP 18; TEMP 35.9; O2SAT 95
[2021-11-13] MEDS: OXcarbazepine 150 MG TABLET PO ×2 (07:58→21:30)
[2021-11-13] MEDS: Gabapentin 100 MG CAPSULE 200 MG PO ×2 (07:58→21:29)
[2021-11-13] MEDS: Omeprazole 20 MG CAPSULE.DR PO (07:58)
[2021-11-13] MEDS: Sertraline HCL 50 MG TABLET PO (07:58)
[2021-11-13] MEDS: Ferrous Sulfate 324 MG TABLET.DR PO (07:58)
[2021-11-13] MEDS: Acetaminophen 325 MG TABLET 975 MG PO ×4 (07:58→21:27)
[2021-11-13] MEDS: Cholecalciferol (Vitamin D3) 25 MCG TABLET PO (07:58)
[2021-11-13] MEDS: Lithium Carbonate 300 MG CAPSULE 600 MG PO ×2 (07:59→21:31)
[2021-11-13] MEDS: Nicotine 21 MG PATCH.TD24 TRANSDERMA (08:02)
[2021-11-13] MEDS: Fluticasone/Vilanterol 200/25 BLST.W.DEV 1 PUFF INHALE (08:29)
--- NOTE | 2021-11-13 12:27 | HO.PSYCHPN ---
Subjective Subjective Date of Service: 11/13/21 Reason For Visit: mood disorder Interim History: pt reports she continues to not sleep well. agrees to have zyprexa increased to 10 mg at bedtime. otherwise says her mood is good and she is having SI not as much, but she is also tired. seen in bed as for yesterday. per staff, c/o shoulder, back, knee, lower leg pain. anxious and depressed, eating well. social and visible, laughing, c/o pain, slept well per staff. Mental Status Exam Mental Status Exam Narrative: adequately dressed and groomed, obese, lying in bed. cooperative with interview. no PMA/PMR. speech nml in rate, amount, loudness. flattened tone, nml latency. thoughts linear and logical. affect constricted, normo-intense, non-labile, c/w context. +SI but not as much. no HI/AVH expressed. Diagnostics Vital Signs (24Hr): Vital Signs - 24 hr 11/12/21 20:53 11/13/21 07:55 Temperature 97.4 F 96.6 F L Pulse Rate 77 70 Respiratory Rate 18 Blood Pressure 113/57 L 111/60 Pulse Oximetry 93 95 BMI result Body Mass Index 50.1 Labs Results: 11/09/21 16:44 11/09/21 16:44 Medications Medications Current Medications Acetaminophen (Acetaminophen 325 Mg Tablet) 975 mg PO QID [facility] Last Admin: 11/13/21 07:58 Dose: 975 mg Documented by: Al Hydroxide/Mg Hydroxide (Magnesium Hydrox/Alum Hydrox 30 Ml Oral.Susp) 30 ml PO Q6H PRN PRN Reason: Heartburn/Nausea Al Hydroxide/Mg Hydroxide (Magnesium Hydrox/Alum Hydrox 30 Ml Oral.Susp) 30 ml PO Q6H PRN PRN Reason: Heartburn/Nausea Last Admin: 11/12/21 20:08 Dose: 30 ml Documented by: Albuterol Sulfate (Albuterol Sulfate 90 Mcg 8 Gm Inhaler) 2 puff INHALE Q4H PRN PRN Reason: shortness of breath or wheezing Capsaicin (Capsaicin 0.025% Cream 60 Gm Tube) 1 appl TOPICAL QID PRN; Protocol PRN Reason: Pain, Moderate (Pain Scale 4-6 Last Admin: 11/12/21 20:48 Dose: 1 appl Documented by: Ferrous Sulfate (Ferrous Sulfate 324 Mg Tablet.) 324 mg PO DAILY [facility] Last Admin: 11/13/21 07:58 Dose: 324 mg Documented by: Fluticasone/Vilanterol (Fluticasone/Vilanterol 200/25 Blst.W.Dev) 1 puff INHALE RDAILY [facility] Last Admin: 11/13/21 08:29 Dose: 1 puff Documented by: Gabapentin (Gabapentin 100 Mg Capsule) 200 mg PO BID [facility] Last Admin: 11/13/21 07:58 Dose: 200 mg Documented by: Hydroxyzine HCl (Hydroxyzine Hcl 25 Mg Tablet) 25 mg PO Q6H PRN PRN Reason: Anxiety Last Admin: 11/12/21 13:41 Dose: 25 mg Documented by: [place] Carbonate ([place] Carbonate 300 Mg Capsule) 600 mg PO BID [facility] Last Admin: 11/13/21 07:59 Dose: 600 mg Documented by: Magnesium Hydroxide (Milk Of Magnesia 30 Ml Oral.Susp) 30 ml PO DAILY PRN PRN Reason: Constipation Nicotine (Nicotine 21 Mg Patch.Td24) 21 mg TRANSDERMA DAILY [facility] Last Admin: 11/13/21 08:02 Dose: 21 mg Documented by: Olanzapine (Olanzapine 10 Mg Tablet) 10 mg PO BEDTIME [facility] Omeprazole (Omeprazole 20 Mg Capsule.) 20 mg PO DAILY@0630 [facility] Last Admin: 11/13/21 07:58 Dose: 20 mg Documented by: Oxcarbazepine (Oxcarbazepine 150 Mg Tablet) 150 mg PO BID [facility] Last Admin: 11/13/21 07:58 Dose: 150 mg Documented by: Prazosin HCl (Prazosin Hcl 1 Mg Capsule) 5 mg PO BEDTIME [facility]; Protocol Last Admin: 11/12/21 20:43 Dose: 5 mg Documented by: Quetiapine Fumarate (Quetiapine Fumarate 25 Mg Tablet) 25 mg PO BID PRN PRN Reason: anxiety Ropinirole HCl (Ropinirole Hcl 0.5 Mg Tablet) 0.5 mg PO BEDTIME [facility] Last Admin: 11/12/21 20:43 Dose: 0.5 mg Documented by: Sertraline HCl (Sertraline Hcl 50 Mg Tablet) 50 mg PO DAILY [facility] Last Admin: 11/13/21 07:58 Dose: 50 mg Documented by: Simethicone (Simethicone 80 Mg Tab.Chew) 80 mg PO QIDWMHS PRN PRN Reason: gas relief Trazodone HCl (Trazodone Hcl 100 Mg Tablet) 200 mg PO BEDTIME [facility] Last Admin: 11/12/21 20:44 Dose: 200 mg Documented by: Valacyclovir HCl (Valacycyclovir Hcl 1,000 Mg Tablet) 1,000 mg PO BID [facility] Last Admin: 11/13/21 07:58 Dose: 1,000 mg Documented by: Vitamin D (Cholecalciferol (Vitamin D3) 25 Mcg Tablet) 25 mcg PO DAILY [facility] Last Admin: 11/13/21 07:58 Dose: 25 mcg Documented by: Allergies Allergies Allergy/AdvReac Type Severity Reaction Status Date / Time aspirin [Aspirin] Allergy Severe HIVES,THROAT Verified 10/13/21 04:51 SWELLS bee pollen [BEE STINGS] Allergy Severe ANAPHYLAXIS Verified 10/13/21 04:51 diphenhydramine Allergy Severe hives, Verified 10/13/21 04:51 [From BENADRYL ALLERGY] throat swells Penicillins [PCN] Allergy Severe HIVES Verified 10/13/21 04:51 THROAT SWELLS Sulfa (Sulfonamide Allergy Intermediate HIVES Verified 10/13/21 04:51 Antibiotics) [SULFA (SULFONAMIDE ANTIBIOTICS)] tramadol [TRAMADOL] Allergy Intermediate ITCHING Verified 10/13/21 04:51 latex [LATEX] Allergy Unknown UNKNOWN Verified 10/13/21 04:51 penicillin G Allergy Unknown Unknown Verified 10/13/21 04:51 levofloxacin [From Levaquin] Allergy Hives Verified 10/13/21 04:51 bee stings Allergy Unknown Unknown Uncoded 10/13/21 04:51 [employer] Allergy Unknown Unknown Uncoded 10/13/21 04:51 sulfa drugs Allergy Unknown Unknown Uncoded 10/13/21 04:51 Assessment & Plan Assessment & Plan (1) Suicidal ideation: Status: Acute Code(s): R45.851 - Suicidal ideations Assessment and Plan: ongoing (2) PTSD (post-traumatic stress disorder): Status: Acute Code(s): F43.10 - Post-traumatic stress disorder, unspecified Assessment and Plan: continue current regimen aside from increasing trazodone to 200 mg QHS as of 11/12, increasing prazosin to 5 mg QHS as of 11/12, increasing prazosin to 6 mg QHS as of 11/13, and increasing zyprexa to 10 mg QHS as of 11/13. (3) Borderline personality disorder: Status: Acute Code(s): F60.3 - Borderline personality disorder Assessment and Plan: brief inpatient stay, if feasible (4) Cocaine use disorder: Status: Acute Code(s): F14.10 - Cocaine abuse, uncomplicated Assessment and Plan: abstain (5) Abnormal EEG: Status: Acute Code(s): R94.01 - Abnormal electroencephalogram [EEG] Assessment and Plan: started trileptal 150 BID 11/12 as per neuro rec. (6) Parotid mass: Status: Acute Code(s): K11.8 - Other diseases of salivary glands Assessment and Plan: have requested oncology weigh in on the subject. per discussion with Dr. Lopes, next step would be FNA of the mass. will need to discuss with pt and pursue scheduling for outpt if pt is interested. (7) Carotid stenosis: Status: Acute Code(s): I65.29 - Occlusion and stenosis of unspecified carotid artery Assessment and Plan: F/U with outpt providers Assessment and Plan: continue outpt meds aside from as noted above. plan to dispo to [facility] respite bed I spent minutes with the patient and/or on the patient floor today, greater than?50% of which was spent counseling/coordinating care. Reason for contiued inpatient stay Substantial Risk for: harm to self
[2021-11-13] MEDS: hydrOXYzine HCL 25 MG TABLET PO (13:39)
[2021-11-13] MEDS: Capsaicin 0.025% Cream 60 GM TUBE 1 APPL TOPICAL ×2 (14:43→22:39)
--- NOTE | 2021-11-13 15:09 | MHC.CLN ---
NUTRITION CONSULT PATIENT REQUESTED TO TALK TO RD ABOUT MORE HEALTHFUL EATING. PATIENT SHOWED THIS MIXER PIGMENT CHIPS AND COOKIES SHE HAD IN HER WALKER, STATING THERE WAS MORE IN HER ROOM. PROVIDED A HANDOUT EATING RIGHT FOR A HEALTHY WEIGHT. PATIENT RECEPTIVE TO INFORMATION PROVIDED, BOTH HANDOUT AND DISCUSSION. ADVISED TO ORDER FEWER SNACK ITEMS WITH MEALS AND TO SELECT FOODS SUCH YOGURT OR FRUIT SNACKS.
[2021-11-13] MEDS: Magnesium Hydrox/Alum Hydrox 30 ML ORAL.SUSP PO (19:45)
[2021-11-13 21:23] VITALS: BP 127/71; PULSE 81; RESP 18; TEMP 36.8; O2SAT 94
[2021-11-13] MEDS: Prazosin HCL 1 MG CAPSULE 5 MG PO (21:28)
[2021-11-13] MEDS: OLANZapine 10 MG TABLET PO (21:30)
[2021-11-13] MEDS: rOPINIRole HCL 0.5 MG TABLET PO (21:30)
[2021-11-13] MEDS: traZODone HCL 100 MG TABLET 200 MG PO (21:30)
[2021-11-14 08:00] VITALS: BP 111/65; PULSE 72; TEMP 36.4; O2SAT 95
--- NOTE | 2021-11-14 08:07 | P.PNPSI_ITS ---
Subjective Subjective Date of Service: 11/14/21 Reason For Visit: mood disorder Subjective Notes: Conditional Voluntary Interim History: Patient was seen in rounds today and discussed. Records and plans reviewed. Labs were reviewed. She continues to complain of anxiety, varied sleeping pattern. She has been social and med compliant. Complains of some fatigue during the day. She also has some edema on both legs. She had an episode of incontinence yesterday. No complaints or side effects. No changes were made. Review of Systems Review of Systems Constitutional : No Fever, No Chills ENT/Mouth : No Ear Pain, No Nasal Congestion, No sore throat Eyes: No Eye Pain, No Swelling, No Redness Cardiovascular : No Chest Pain, No SOB Respiratory : No Cough, No Sputum, No Dyspnea Gastrointestinal : No Nausea, No Vomiting, No Diarrhea, No Hematochezia, No Melena Genitourinary : No Dysuria, No Urinary Frequency, No Hematuria Musculoskeletal : No Myalgias Skin : No Skin Lesions, No rash Neuro : No Weakness, No Numbness, No Paresthesias, No Dizziness, No Headache Psych : positive Anxiety, positive Depression, positive SI, No HI All other systems reviewed and are negative Yes all other systems are reviewed and are negative Mental Status Exam Mental Status Exam Narrative: Patient was seen today. She is alert, oriented some. Normal speech. Moderate eye contact. No signs of psychosis. No SI/HI. Cognitively intact with slowed thought processes. Judgment is intact Diagnostics Vital Signs (24Hr): Vital Signs - 24 hr 11/13/21 21:23 Temperature 98.3 F Pulse Rate 81 Respiratory Rate 18 Blood Pressure 127/71 Pulse Oximetry 94 BMI result Body Mass Index 50.1 Labs Results: 11/09/21 16:44 11/09/21 16:44 Medications Medications Current Medications Acetaminophen (Acetaminophen 325 Mg Tablet) 975 mg PO QID TEJA Last Admin: 11/13/21 21:27 Dose: 975 mg Documented by: Al Hydroxide/Mg Hydroxide (Magnesium Hydrox/Alum Hydrox 30 Ml Oral.Susp) 30 ml PO Q6H PRN PRN Reason: Heartburn/Nausea Last Admin: 11/13/21 19:45 Dose: 30 ml Documented by: Al Hydroxide/Mg Hydroxide (Magnesium Hydrox/Alum Hydrox 30 Ml Oral.Susp) 30 ml PO Q6H PRN PRN Reason: Heartburn/Nausea Last Admin: 11/12/21 20:08 Dose: 30 ml Documented by: Albuterol Sulfate (Albuterol Sulfate 90 Mcg 8 Gm Inhaler) 2 puff INHALE Q4H PRN PRN Reason: shortness of breath or wheezing Capsaicin (Capsaicin 0.025% Cream 60 Gm Tube) 1 appl TOPICAL QID PRN; Protocol PRN Reason: Pain, Moderate (Pain Scale 4-6 Last Admin: 11/13/21 22:39 Dose: 1 appl Documented by: Ferrous Sulfate (Ferrous Sulfate 324 Mg Tablet.) 324 mg PO DAILY [facility] Last Admin: 11/13/21 07:58 Dose: 324 mg Documented by: Fluticasone/Vilanterol (Fluticasone/Vilanterol 200/25 Blst.W.Dev) 1 puff INHALE RDAILY [facility] Last Admin: 11/13/21 08:29 Dose: 1 puff Documented by: Gabapentin (Gabapentin 100 Mg Capsule) 200 mg PO BID [facility] Last Admin: 11/13/21 21:29 Dose: 200 mg Documented by: Hydroxyzine HCl (Hydroxyzine Hcl 25 Mg Tablet) 25 mg PO Q6H PRN PRN Reason: Anxiety Last Admin: 11/13/21 13:39 Dose: 25 mg Documented by: [place] Carbonate ([place] Carbonate 300 Mg Capsule) 600 mg PO BID [facility] Last Admin: 11/13/21 21:31 Dose: 600 mg Documented by: Magnesium Hydroxide (Milk Of Magnesia 30 Ml Oral.Susp) 30 ml PO DAILY PRN PRN Reason: Constipation Nicotine (Nicotine 21 Mg Patch.Td24) 21 mg TRANSDERMA DAILY [facility] Last Admin: 11/13/21 08:02 Dose: 21 mg Documented by: Olanzapine (Olanzapine 10 Mg Tablet) 10 mg PO BEDTIME [facility] Last Admin: 11/13/21 21:30 Dose: 10 mg Documented by: Omeprazole (Omeprazole 20 Mg Capsule.) 20 mg PO DAILY@0630 [facility] Last Admin: 11/13/21 07:58 Dose: 20 mg Documented by: Oxcarbazepine (Oxcarbazepine 150 Mg Tablet) 150 mg PO BID [facility] Last Admin: 11/13/21 21:30 Dose: 150 mg Documented by: Prazosin HCl (Prazosin Hcl 5 Mg Capsule) 5 mg PO BEDTIME [facility]; Protocol Quetiapine Fumarate (Quetiapine Fumarate 25 Mg Tablet) 25 mg PO BID PRN PRN Reason: anxiety Ropinirole HCl (Ropinirole Hcl 0.5 Mg Tablet) 0.5 mg PO BEDTIME [facility] Last Admin: 11/13/21 21:30 Dose: 0.5 mg Documented by: Sertraline HCl (Sertraline Hcl 50 Mg Tablet) 50 mg PO DAILY [facility] Last Admin: 11/13/21 07:58 Dose: 50 mg Documented by: Simethicone (Simethicone 80 Mg Tab.Chew) 80 mg PO QIDWMHS PRN PRN Reason: gas relief Trazodone HCl (Trazodone Hcl 100 Mg Tablet) 200 mg PO BEDTIME [facility] Last Admin: 11/13/21 21:30 Dose: 200 mg Documented by: Valacyclovir HCl (Valacycyclovir Hcl 1,000 Mg Tablet) 1,000 mg PO BID [facility] Last Admin: 11/13/21 21:29 Dose: 1,000 mg Documented by: Vitamin D (Cholecalciferol (Vitamin D3) 25 Mcg Tablet) 25 mcg PO DAILY [facility] Last Admin: 11/13/21 07:58 Dose: 25 mcg Documented by: Allergies Allergies Allergy/AdvReac Type Severity Reaction Status Date / Time aspirin [Aspirin] Allergy Severe HIVES,THROAT Verified 10/13/21 04:51 SWELLS bee pollen [BEE STINGS] Allergy Severe ANAPHYLAXIS Verified 10/13/21 04:51 diphenhydramine Allergy Severe hives, Verified 10/13/21 04:51 [From BENADRYL ALLERGY] throat swells Penicillins [PCN] Allergy Severe HIVES Verified 10/13/21 04:51 THROAT SWELLS Sulfa (Sulfonamide Allergy Intermediate HIVES Verified 10/13/21 04:51 Antibiotics) [SULFA (SULFONAMIDE ANTIBIOTICS)] tramadol [TRAMADOL] Allergy Intermediate ITCHING Verified 10/13/21 04:51 latex [LATEX] Allergy Unknown UNKNOWN Verified 10/13/21 04:51 penicillin G Allergy Unknown Unknown Verified 10/13/21 04:51 levofloxacin [From Levaquin] Allergy Hives Verified 10/13/21 04:51 bee stings Allergy Unknown Unknown Uncoded 10/13/21 04:51 [employer] Allergy Unknown Unknown Uncoded 10/13/21 04:51 sulfa drugs Allergy Unknown Unknown Uncoded 10/13/21 04:51 Assessment & Plan Assessment & Plan (1) Suicidal ideation: Status: Acute Code(s): R45.851 - Suicidal ideations Assessment and Plan: ongoing (2) PTSD (post-traumatic stress disorder): Status: Acute Code(s): F43.10 - Post-traumatic stress disorder, unspecified Assessment and Plan: continue current regimen aside from increasing trazodone to 200 mg QHS as of 11/12, increasing prazosin to 5 mg QHS as of 11/12, increasing prazosin to 6 mg QHS as of 11/13, and increasing zyprexa to 10 mg QHS as of 11/13. (3) Borderline personality disorder: Status: Acute Code(s): F60.3 - Borderline personality disorder Assessment and Plan: brief inpatient stay, if feasible (4) Cocaine use disorder: Status: Acute Code(s): F14.10 - Cocaine abuse, uncomplicated Assessment and Plan: abstain (5) Abnormal EEG: Status: Acute Code(s): R94.01 - Abnormal electroencephalogram [EEG] Assessment and Plan: started trileptal 150 BID 11/12 as per neuro rec. (6) Parotid mass: Status: Acute Code(s): K11.8 - Other diseases of salivary glands Assessment and Plan: have requested oncology weigh in on the subject. per discussion with Dr. Lopes, next step would be FNA of the mass. will need to discuss with pt and pursue scheduling for outpt if pt is interested. (7) Carotid stenosis: Status: Acute Code(s): I65.29 - Occlusion and stenosis of unspecified carotid artery Assessment and Plan: F/U with outpt providers Assessment and Plan: continue outpt meds aside from as noted above. plan to dispo to [facility] respite bed 11/14/2021 Continue current regimen and plans with no changes today I spent minutes with the patient and/or on the patient floor today, greater than?50% of which was spent counseling/coordinating care. Reason for contiued inpatient stay Substantial Risk for: other
[2021-11-14] MEDS: Gabapentin 100 MG CAPSULE 200 MG PO ×2 (08:53→22:32)
[2021-11-14] MEDS: Omeprazole 20 MG CAPSULE.DR PO (08:55)
[2021-11-14] MEDS: Acetaminophen 325 MG TABLET 975 MG PO ×4 (08:56→22:33)
[2021-11-14] MEDS: Lithium Carbonate 300 MG CAPSULE 600 MG PO ×2 (08:56→22:33)
[2021-11-14] MEDS: Cholecalciferol (Vitamin D3) 25 MCG TABLET PO (08:57)
[2021-11-14] MEDS: OXcarbazepine 150 MG TABLET PO ×2 (08:57→22:35)
[2021-11-14] MEDS: Sertraline HCL 50 MG TABLET PO (08:57)
[2021-11-14] MEDS: Ferrous Sulfate 324 MG TABLET.DR PO (08:57)
[2021-11-14] MEDS: Fluticasone/Vilanterol 200/25 BLST.W.DEV 1 PUFF INHALE (09:00)
[2021-11-14] MEDS: Nicotine 21 MG PATCH.TD24 TRANSDERMA (09:18)
[2021-11-14] MEDS: Capsaicin 0.025% Cream 60 GM TUBE 1 APPL TOPICAL ×3 (09:18→18:17)
[2021-11-14 22:30] VITALS: BP 141/65; PULSE 85; TEMP 36.2; O2SAT 96
[2021-11-14] MEDS: rOPINIRole HCL 0.5 MG TABLET PO (22:34)
[2021-11-14] MEDS: traZODone HCL 100 MG TABLET 200 MG PO (22:34)
[2021-11-14] MEDS: OLANZapine 10 MG TABLET PO (22:34)
[2021-11-14] MEDS: Prazosin HCL 5 MG CAPSULE PO (22:35)
--- NOTE | 2021-11-15 07:48 | P.PNPSI_ITS ---
Subjective Subjective Date of Service: 11/14/21 Reason For Visit: mood disorder Subjective Notes: Conditional Voluntary Interim History: Patient was seen in rounds today and discussed. Records and plans reviewed. Labs were reviewed. She continues to have some depression and anxiety. She is awaiting a respite bed. She is not complaining as much about pain. She has social, interactive specially with her roommate. She continues to have incontinence which is a new symptom for her and may need to be seen by OBGYN or urology. She is med compliant. Eating and sleeping adequately. No active SI. No changes were made today Possible parotid mass is being explored Review of Systems Review of Systems Constitutional : No Fever, No Chills ENT/Mouth : No Ear Pain, No Nasal Congestion, No sore throat Eyes: No Eye Pain, No Swelling, No Redness Cardiovascular : No Chest Pain, No SOB Respiratory : No Cough, No Sputum, No Dyspnea Gastrointestinal : No Nausea, No Vomiting, No Diarrhea, No Hematochezia, No Melena Genitourinary : No Dysuria, No Urinary Frequency, No Hematuria Musculoskeletal : No Myalgias Skin : No Skin Lesions, No rash Neuro : No Weakness, No Numbness, No Paresthesias, No Dizziness, No Headache Psych : positive Anxiety, positive Depression, positive SI, No HI All other systems reviewed and are negative Yes all other systems are reviewed and are negative Mental Status Exam Mental Status Exam Narrative: Patient was seen today. She is alert, oriented some. Normal speech. Moderate eye contact. No signs of psychosis. No SI/HI. Cognitively intact. Judgment is intact Diagnostics Vital Signs (24Hr): Vital Signs - 24 hr 11/14/21 08:00 11/14/21 22:30 Temperature 97.6 F 97.2 F Pulse Rate 72 85 Blood Pressure 111/65 141/65 H Pulse Oximetry 95 96 BMI result Body Mass Index 50.1 Labs Results: 11/09/21 16:44 11/09/21 16:44 Medications Medications Current Medications Acetaminophen (Acetaminophen 325 Mg Tablet) 975 mg PO QID TEJA Last Admin: 11/14/21 22:33 Dose: 975 mg Documented by: Al Hydroxide/Mg Hydroxide (Magnesium Hydrox/Alum Hydrox 30 Ml Oral.Susp) 30 ml PO Q6H PRN PRN Reason: Heartburn/Nausea Last Admin: 11/13/21 19:45 Dose: 30 ml Documented by: Al Hydroxide/Mg Hydroxide (Magnesium Hydrox/Alum Hydrox 30 Ml Oral.Susp) 30 ml PO Q6H PRN PRN Reason: Heartburn/Nausea Last Admin: 11/12/21 20:08 Dose: 30 ml Documented by: Albuterol Sulfate (Albuterol Sulfate 90 Mcg 8 Gm Inhaler) 2 puff INHALE Q4H PRN PRN Reason: shortness of breath or wheezing Capsaicin (Capsaicin 0.025% Cream 60 Gm Tube) 1 appl TOPICAL QID PRN; Protocol PRN Reason: Pain, Moderate (Pain Scale 4-6 Last Admin: 11/14/21 18:17 Dose: 1 appl Documented by: Ferrous Sulfate (Ferrous Sulfate 324 Mg Tablet.) 324 mg PO DAILY [facility] Last Admin: 11/14/21 08:57 Dose: 324 mg Documented by: Fluticasone/Vilanterol (Fluticasone/Vilanterol 200/25 Blst.W.Dev) 1 puff INHALE RDAILY [facility] Last Admin: 11/14/21 09:00 Dose: 1 puff Documented by: Gabapentin (Gabapentin 100 Mg Capsule) 200 mg PO BID [facility] Last Admin: 11/14/21 22:32 Dose: 200 mg Documented by: Hydroxyzine HCl (Hydroxyzine Hcl 25 Mg Tablet) 25 mg PO Q6H PRN PRN Reason: Anxiety Last Admin: 11/13/21 13:39 Dose: 25 mg Documented by: [place] Carbonate ([place] Carbonate 300 Mg Capsule) 600 mg PO BID [facility] Last Admin: 11/14/21 22:33 Dose: 600 mg Documented by: Magnesium Hydroxide (Milk Of Magnesia 30 Ml Oral.Susp) 30 ml PO DAILY PRN PRN Reason: Constipation Nicotine (Nicotine 21 Mg Patch.Td24) 21 mg TRANSDERMA DAILY [facility] Last Admin: 11/14/21 09:18 Dose: 21 mg Documented by: Olanzapine (Olanzapine 10 Mg Tablet) 10 mg PO BEDTIME [facility] Last Admin: 11/14/21 22:34 Dose: 10 mg Documented by: Omeprazole (Omeprazole 20 Mg Capsule.) 20 mg PO DAILY@0630 [facility] Last Admin: 11/14/21 08:55 Dose: 20 mg Documented by: Oxcarbazepine (Oxcarbazepine 150 Mg Tablet) 150 mg PO BID [facility] Last Admin: 11/14/21 22:35 Dose: 150 mg Documented by: Prazosin HCl (Prazosin Hcl 5 Mg Capsule) 5 mg PO BEDTIME [facility]; Protocol Last Admin: 11/14/21 22:35 Dose: 5 mg Documented by: Quetiapine Fumarate (Quetiapine Fumarate 25 Mg Tablet) 25 mg PO BID PRN PRN Reason: anxiety Ropinirole HCl (Ropinirole Hcl 0.5 Mg Tablet) 0.5 mg PO BEDTIME [facility] Last Admin: 11/14/21 22:34 Dose: 0.5 mg Documented by: Sertraline HCl (Sertraline Hcl 50 Mg Tablet) 50 mg PO DAILY [facility] Last Admin: 11/14/21 08:57 Dose: 50 mg Documented by: Simethicone (Simethicone 80 Mg Tab.Chew) 80 mg PO QIDWMHS PRN PRN Reason: gas relief Trazodone HCl (Trazodone Hcl 100 Mg Tablet) 200 mg PO BEDTIME [facility] Last Admin: 11/14/21 22:34 Dose: 200 mg Documented by: Valacyclovir HCl (Valacycyclovir Hcl 1,000 Mg Tablet) 1,000 mg PO BID [facility] Last Admin: 11/14/21 22:32 Dose: 1,000 mg Documented by: Vitamin D (Cholecalciferol (Vitamin D3) 25 Mcg Tablet) 25 mcg PO DAILY [facility] Last Admin: 11/14/21 08:57 Dose: 25 mcg Documented by: Allergies Allergies Allergy/AdvReac Type Severity Reaction Status Date / Time aspirin [Aspirin] Allergy Severe HIVES,THROAT Verified 10/13/21 04:51 SWELLS bee pollen [BEE STINGS] Allergy Severe ANAPHYLAXIS Verified 10/13/21 04:51 diphenhydramine Allergy Severe hives, Verified 10/13/21 04:51 [From BENADRYL ALLERGY] throat swells Penicillins [PCN] Allergy Severe HIVES Verified 10/13/21 04:51 THROAT SWELLS Sulfa (Sulfonamide Allergy Intermediate HIVES Verified 10/13/21 04:51 Antibiotics) [SULFA (SULFONAMIDE ANTIBIOTICS)] tramadol [TRAMADOL] Allergy Intermediate ITCHING Verified 10/13/21 04:51 latex [LATEX] Allergy Unknown UNKNOWN Verified 10/13/21 04:51 penicillin G Allergy Unknown Unknown Verified 10/13/21 04:51 levofloxacin [From Levaquin] Allergy Hives Verified 10/13/21 04:51 bee stings Allergy Unknown Unknown Uncoded 10/13/21 04:51 [employer] Allergy Unknown Unknown Uncoded 10/13/21 04:51 sulfa drugs Allergy Unknown Unknown Uncoded 10/13/21 04:51 Assessment & Plan Assessment & Plan (1) Suicidal ideation: Status: Acute Code(s): R45.851 - Suicidal ideations Assessment and Plan: ongoing (2) PTSD (post-traumatic stress disorder): Status: Acute Code(s): F43.10 - Post-traumatic stress disorder, unspecified Assessment and Plan: continue current regimen aside from increasing trazodone to 200 mg QHS as of 11/12, increasing prazosin to 5 mg QHS as of 11/12, increasing prazosin to 6 mg QHS as of 11/13, and increasing zyprexa to 10 mg QHS as of 11/13. (3) Borderline personality disorder: Status: Acute Code(s): F60.3 - Borderline personality disorder Assessment and Plan: brief inpatient stay, if feasible (4) Cocaine use disorder: Status: Acute Code(s): F14.10 - Cocaine abuse, uncomplicated Assessment and Plan: abstain (5) Abnormal EEG: Status: Acute Code(s): R94.01 - Abnormal electroencephalogram [EEG] Assessment and Plan: started trileptal 150 BID 11/12 as per neuro rec. (6) Parotid mass: Status: Acute Code(s): K11.8 - Other diseases of salivary glands Assessment and Plan: have requested oncology weigh in on the subject. per discussion with Dr. Lopes, next step would be FNA of the mass. will need to discuss with pt and pursue scheduling for outpt if pt is interested. (7) Carotid stenosis: Status: Acute Code(s): I65.29 - Occlusion and stenosis of unspecified carotid artery Assessment and Plan: F/U with outpt providers Assessment and Plan: continue outpt meds aside from as noted above. plan to dispo to [facility] respite bed 11/14/2021 Continue current regimen and plans with no changes today 11/15/2021 Continue current plans and regimen. No changes were made today I spent minutes with the patient and/or on the patient floor today, greater than?50% of which was spent counseling/coordinating care. Reason for contiued inpatient stay Substantial Risk for: other
[2021-11-15] MEDS: Omeprazole 20 MG CAPSULE.DR PO (08:33)
[2021-11-15] MEDS: Gabapentin 100 MG CAPSULE 200 MG PO ×2 (08:34→22:50)
[2021-11-15] MEDS: Sertraline HCL 50 MG TABLET PO (08:35)
[2021-11-15] MEDS: Ferrous Sulfate 324 MG TABLET.DR PO (08:35)
[2021-11-15] MEDS: Lithium Carbonate 300 MG CAPSULE 600 MG PO ×2 (08:35→22:50)
[2021-11-15] MEDS: Cholecalciferol (Vitamin D3) 25 MCG TABLET PO (08:35)
[2021-11-15] MEDS: OXcarbazepine 150 MG TABLET PO ×2 (08:36→22:50)
[2021-11-15] MEDS: Acetaminophen 325 MG TABLET 975 MG PO ×4 (08:36→22:48)
[2021-11-15] MEDS: Fluticasone/Vilanterol 200/25 BLST.W.DEV 1 PUFF INHALE (08:37)
[2021-11-15] MEDS: Capsaicin 0.025% Cream 60 GM TUBE 1 APPL TOPICAL ×2 (08:37→22:58)
[2021-11-15] MEDS: Nicotine 21 MG PATCH.TD24 TRANSDERMA (08:38)
[2021-11-15 09:00] VITALS: BP 134/69; PULSE 80; TEMP 36.6; O2SAT 98
[2021-11-15] MEDS: hydrOXYzine HCL 25 MG TABLET PO (18:57)
[2021-11-15] MEDS: Prazosin HCL 5 MG CAPSULE PO (22:49)
[2021-11-15] MEDS: traZODone HCL 100 MG TABLET 200 MG PO (22:50)
[2021-11-15] MEDS: rOPINIRole HCL 0.5 MG TABLET PO (22:50)
[2021-11-15] MEDS: OLANZapine 10 MG TABLET PO (22:50)
[2021-11-15 22:53] VITALS: BP 124/72; PULSE 82; TEMP 36.8; O2SAT 94
[2021-11-16 08:18] VITALS: BP 112/67; PULSE 88; RESP 17; TEMP 36.8; O2SAT 91
[2021-11-16] MEDS: Cholecalciferol (Vitamin D3) 25 MCG TABLET PO (08:19)
[2021-11-16] MEDS: OXcarbazepine 150 MG TABLET PO ×2 (08:19→22:14)
[2021-11-16] MEDS: Sertraline HCL 50 MG TABLET PO (08:20)
[2021-11-16] MEDS: Omeprazole 20 MG CAPSULE.DR PO (08:21)
[2021-11-16] MEDS: Lithium Carbonate 300 MG CAPSULE 600 MG PO ×2 (08:22→22:14)
[2021-11-16] MEDS: Ferrous Sulfate 324 MG TABLET.DR PO (08:22)
[2021-11-16] MEDS: Gabapentin 100 MG CAPSULE 200 MG PO ×2 (08:22→22:14)
[2021-11-16] MEDS: Acetaminophen 325 MG TABLET 975 MG PO ×4 (08:23→22:15)
[2021-11-16] MEDS: Nicotine 21 MG PATCH.TD24 TRANSDERMA (08:25)
[2021-11-16] MEDS: Fluticasone/Vilanterol 200/25 BLST.W.DEV 1 PUFF INHALE (08:25)
[2021-11-16 08:53] LABS: Glucose, Whole Blood 140 mg/dL (60-115)
[2021-11-16 09:21] LABS: COVID-19 Test Negative (Negative)
--- NOTE | 2021-11-16 12:51 | HO.PSYCHPN ---
Subjective Subjective Date of Service: 11/16/21 Reason For Visit: mood disorder Subjective Notes: Conditional Voluntary Interim History: Pt reports poor sleep, mostly thinks roommate disruptive and keeping her up. She also reports SOB when ambulating. O2sat checked while pt ambulating, her O2sat does desaturates to 88. Consult for respiratory therapy placed as she may need oxygen. Pt reports feeling tired, due to poor sleep. She reports less depressed mood, somewhat anxious, hoping to have more stable place to live. She is social with peers, no behavioral concerns. Medication Compliance: Yes Side effects from medications: No Review of Systems Review of Systems Constitutional : No Fever, No Chills ENT/Mouth : No Ear Pain, No Nasal Congestion, No sore throat Eyes: No Eye Pain, No Swelling, No Redness Cardiovascular : No Chest Pain, No SOB Respiratory : No Cough, No Sputum, No Dyspnea Gastrointestinal : No Nausea, No Vomiting, No Diarrhea, No Hematochezia, No Melena Genitourinary : No Dysuria, No Urinary Frequency, No Hematuria Musculoskeletal : No Myalgias Skin : No Skin Lesions, No rash Neuro : No Weakness, No Numbness, No Paresthesias, No Dizziness, No Headache Psych : positive Anxiety, positive Depression, positive SI, No HI All other systems reviewed and are negative Yes all other systems are reviewed and are negative Mental Status Exam Mental Status Exam Narrative: Casually groomed, fair hygiene, [place] woman ambulating with walker, SOB when ambulating. Cooperative and calm No psychomotor agitation or retardation noted Speech is clear, normal rate/rhythm/volume, spontaneous TP: linear TC: no signs of psychosis, hoping to get stable housing VH/AH: none Mood: tired Affect: congruent, non labile SI: none HI: none Delusions: none Insight/judgment: fair x 2. Memory/cog:Alert, oriented x 3. grossly intact to conversational testing. Diagnostics Vital Signs (24Hr): Vital Signs - 24 hr 11/15/21 22:53 11/16/21 08:18 Temperature 98.2 F 98.3 F Pulse Rate 82 88 Respiratory Rate 17 Blood Pressure 124/72 112/67 Pulse Oximetry 94 91 L BMI result Body Mass Index 50.1 Labs Results: 11/09/21 16:44 11/09/21 16:44 Labs: Laboratory Results - last 48 hr 11/16/21 11/16/21 08:48 09:00 POC Glucose 140 H COVID-19 (ENDY) Negative COVID-19 Clin Com See Note Medications Medications Current Medications Acetaminophen (Acetaminophen 325 Mg Tablet) 975 mg PO QID [facility] Last Admin: 11/16/21 12:39 Dose: 975 mg Documented by: Al Hydroxide/Mg Hydroxide (Magnesium Hydrox/Alum Hydrox 30 Ml Oral.Susp) 30 ml PO Q6H PRN PRN Reason: Heartburn/Nausea Last Admin: 11/13/21 19:45 Dose: 30 ml Documented by: Al Hydroxide/Mg Hydroxide (Magnesium Hydrox/Alum Hydrox 30 Ml Oral.Susp) 30 ml PO Q6H PRN PRN Reason: Heartburn/Nausea Last Admin: 11/12/21 20:08 Dose: 30 ml Documented by: Albuterol Sulfate (Albuterol Sulfate 90 Mcg 8 Gm Inhaler) 2 puff INHALE Q4H PRN PRN Reason: shortness of breath or wheezing Capsaicin (Capsaicin 0.025% Cream 60 Gm Tube) 1 appl TOPICAL QID PRN; Protocol PRN Reason: Pain, Moderate (Pain Scale 4-6 Last Admin: 11/15/21 22:58 Dose: 1 appl Documented by: Ferrous Sulfate (Ferrous Sulfate 324 Mg Tablet.Dr) 324 mg PO DAILY [facility] Last Admin: 11/16/21 08:22 Dose: 324 mg Documented by: Fluticasone/Vilanterol (Fluticasone/Vilanterol 200/25 Blst.W.Dev) 1 puff INHALE RDAILY [facility] Last Admin: 11/16/21 08:25 Dose: 1 puff Documented by: Gabapentin (Gabapentin 100 Mg Capsule) 200 mg PO BID [facility] Last Admin: 11/16/21 08:22 Dose: 200 mg Documented by: Hydroxyzine HCl (Hydroxyzine Hcl 25 Mg Tablet) 25 mg PO Q6H PRN PRN Reason: Anxiety Last Admin: 11/15/21 18:57 Dose: 25 mg Documented by: Eustace Carbonate (Eustace Carbonate 300 Mg Capsule) 600 mg PO BID [facility] Last Admin: 11/16/21 08:22 Dose: 600 mg Documented by: Nicotine (Nicotine 21 Mg Patch.Td24) 21 mg TRANSDERMA DAILY [facility] Last Admin: 11/16/21 08:25 Dose: 21 mg Documented by: Olanzapine (Olanzapine 10 Mg Tablet) 10 mg PO BEDTIME [facility] Last Admin: 11/15/21 22:50 Dose: 10 mg Documented by: Omeprazole (Omeprazole 20 Mg Capsule.Dr) 20 mg PO DAILY@0630 [facility] Last Admin: 11/16/21 08:21 Dose: 20 mg Documented by: Oxcarbazepine (Oxcarbazepine 150 Mg Tablet) 150 mg PO BID [facility] Last Admin: 11/16/21 08:19 Dose: 150 mg Documented by: Prazosin HCl (Prazosin Hcl 5 Mg Capsule) 5 mg PO BEDTIME [facility]; Protocol Last Admin: 11/15/21 22:49 Dose: 5 mg Documented by: Quetiapine Fumarate (Quetiapine Fumarate 25 Mg Tablet) 25 mg PO BID PRN PRN Reason: anxiety Ropinirole HCl (Ropinirole Hcl 0.5 Mg Tablet) 0.5 mg PO BEDTIME [facility] Last Admin: 11/15/21 22:50 Dose: 0.5 mg Documented by: Sertraline HCl (Sertraline Hcl 50 Mg Tablet) 50 mg PO DAILY [facility] Last Admin: 11/16/21 08:20 Dose: 50 mg Documented by: Simethicone (Simethicone 80 Mg Tab.Chew) 80 mg PO QIDWMHS PRN PRN Reason: gas relief Trazodone HCl (Trazodone Hcl 100 Mg Tablet) 200 mg PO BEDTIME [facility] Last Admin: 11/15/21 22:50 Dose: 200 mg Documented by: Valacyclovir HCl (Valacycyclovir Hcl 1,000 Mg Tablet) 1,000 mg PO BID [facility] Last Admin: 11/16/21 08:19 Dose: 1,000 mg Documented by: Vitamin D (Cholecalciferol (Vitamin D3) 25 Mcg Tablet) 25 mcg PO DAILY [facility] Last Admin: 11/16/21 08:19 Dose: 25 mcg Documented by: Allergies Allergies Allergy/AdvReac Type Severity Reaction Status Date / Time aspirin [Aspirin] Allergy Severe HIVES,THROAT Verified 10/13/21 04:51 SWELLS bee pollen [BEE STINGS] Allergy Severe ANAPHYLAXIS Verified 10/13/21 04:51 diphenhydramine Allergy Severe hives, Verified 10/13/21 04:51 [From BENADRYL ALLERGY] throat swells Penicillins [PCN] Allergy Severe HIVES Verified 10/13/21 04:51 THROAT SWELLS Sulfa (Sulfonamide Allergy Intermediate HIVES Verified 10/13/21 04:51 Antibiotics) [SULFA (SULFONAMIDE ANTIBIOTICS)] tramadol [TRAMADOL] Allergy Intermediate ITCHING Verified 10/13/21 04:51 latex [LATEX] Allergy Unknown UNKNOWN Verified 10/13/21 04:51 penicillin G Allergy Unknown Unknown Verified 10/13/21 04:51 levofloxacin [From Levaquin] Allergy Hives Verified 10/13/21 04:51 bee stings Allergy Unknown Unknown Uncoded 10/13/21 04:51 DairyCare Allergy Unknown Unknown Uncoded 10/13/21 04:51 sulfa drugs Allergy Unknown Unknown Uncoded 10/13/21 04:51 Assessment & Plan Assessment & Plan (1) Suicidal ideation: Status: Acute Code(s): R45.851 - Suicidal ideations Assessment and Plan: ongoing (2) PTSD (post-traumatic stress disorder): Status: Acute Code(s): F43.10 - Post-traumatic stress disorder, unspecified Assessment and Plan: continue current regimen aside from increasing trazodone to 200 mg QHS as of 11/12, increasing prazosin to 5 mg QHS as of 11/12, increasing prazosin to 6 mg QHS as of 11/13, and increasing zyprexa to 10 mg QHS as of 11/13. (3) Borderline personality disorder: Status: Acute Code(s): F60.3 - Borderline personality disorder Assessment and Plan: brief inpatient stay, if feasible (4) Cocaine use disorder: Status: Acute Code(s): F14.10 - Cocaine abuse, uncomplicated Assessment and Plan: abstain (5) Abnormal EEG: Status: Acute Code(s): R94.01 - Abnormal electroencephalogram [EEG] Assessment and Plan: started trileptal 150 BID 11/12 as per neuro rec. (6) Parotid mass: Status: Acute Code(s): K11.8 - Other diseases of salivary glands Assessment and Plan: have requested oncology weigh in on the subject. per discussion with Dr. Lopes, next step would be FNA of the mass. will need to discuss with pt and pursue scheduling for outpt if pt is interested. (7) Carotid stenosis: Status: Acute Code(s): I65.29 - Occlusion and stenosis of unspecified carotid artery Assessment and Plan: F/U with outpt providers Assessment and Plan: continue outpt meds aside from as noted above. plan to dispo to [facility] respite bed 11/14/2021 Continue current regimen and plans with no changes today 11/15/2021 Continue current plans and regimen. No changes were made today 11/16- Pt desaturating in 88's when ambulating, visibly SOB, respiratory consult placed, may need Oxygen. no other concerns. I spent minutes with the patient and/or on the patient floor today, greater than?50% of which was spent counseling/coordinating care. Reason for contiued inpatient stay Substantial Risk for: harm to self and inability to function
[2021-11-16 14:05] VITALS: PULSE 84; RESP 18; O2SAT 91
[2021-11-16] MEDS: Albuterol Sulfate 90 MCG 8 GM INHALER 2 PUFF INHALE ×2 (14:32→18:35)
[2021-11-16 18:00] VITALS: BP 134/70; PULSE 82; RESP 18; TEMP 36.8; O2SAT 93
[2021-11-16] MEDS: OLANZapine 10 MG TABLET PO (22:14)
[2021-11-16] MEDS: traZODone HCL 100 MG TABLET 200 MG PO (22:15)
[2021-11-16] MEDS: Prazosin HCL 5 MG CAPSULE PO (22:15)
[2021-11-16] MEDS: rOPINIRole HCL 0.5 MG TABLET PO (22:15)
[2021-11-16] MEDS: Capsaicin 0.025% Cream 60 GM TUBE 1 APPL TOPICAL (22:23)
--- NOTE | 2021-11-17 07:23 | PC.NURSE ---
Pt has a small, red bump measuring approx. 0.5 cm on inner right forearm. Pt states that it is itchy, though denies pain. Some skin irritation noted around area caused by bandaid.
[2021-11-17 08:00] VITALS: BP 117/63; PULSE 75; RESP 17; TEMP 36.8; O2SAT 90
[2021-11-17] MEDS: Capsaicin 0.025% Cream 60 GM TUBE 1 APPL TOPICAL (08:25)
[2021-11-17] MEDS: Albuterol Sulfate 90 MCG 8 GM INHALER 2 PUFF INHALE ×2 (08:25→13:14)
[2021-11-17] MEDS: Fluticasone/Vilanterol 200/25 BLST.W.DEV 1 PUFF INHALE (08:25)
[2021-11-17] MEDS: Acetaminophen 325 MG TABLET 975 MG PO ×4 (08:26→22:20)
[2021-11-17] MEDS: Lithium Carbonate 300 MG CAPSULE 600 MG PO ×2 (08:27→22:08)
[2021-11-17] MEDS: Gabapentin 100 MG CAPSULE 200 MG PO ×2 (08:27→22:09)
[2021-11-17] MEDS: Ferrous Sulfate 324 MG TABLET.DR PO (08:28)
[2021-11-17] MEDS: Sertraline HCL 50 MG TABLET PO (08:28)
[2021-11-17] MEDS: OXcarbazepine 150 MG TABLET PO ×2 (08:28→22:09)
[2021-11-17] MEDS: Cholecalciferol (Vitamin D3) 25 MCG TABLET PO (08:28)
[2021-11-17] MEDS: Omeprazole 20 MG CAPSULE.DR PO (08:29)
[2021-11-17] MEDS: Nicotine 21 MG PATCH.TD24 TRANSDERMA (08:29)
[2021-11-17] MEDS: hydrOXYzine HCL 25 MG TABLET PO ×2 (09:25→22:08)
--- NOTE | 2021-11-17 14:43 | HO.PSYCHPN ---
Subjective Subjective Date of Service: 11/17/21 Reason For Visit: mood disorder Interim History: pt reporting poor sleep and hyper mood. interested in FNA of her parotid mass. believes she will be discharging to a snf due to her inability to meet her ADL requirements. per staff, pt c/o fatigue and sore throat yesterday. COVID NEG. desatting with ambulation. seen by respiratory, which said she is deconditioned. slept well overnight. Mental Status Exam Mental Status Exam Narrative: adequately dressed and groomed, obese, seated in the milieu. cooperative with interview. no PMA/PMR. speech nml in rate, amount, loudness. flattened tone, nml latency. thoughts linear and logical. affect constricted, normo-intense, non-labile, c/w context. no SI/HI/AVH. Diagnostics Vital Signs (24Hr): Vital Signs - 24 hr 11/16/21 18:00 11/17/21 08:00 Temperature 98.2 F 98.3 F Pulse Rate 82 75 Respiratory Rate 18 17 Blood Pressure 134/70 117/63 Pulse Oximetry 93 90 L BMI result Body Mass Index 50.1 Labs Results: 11/09/21 16:44 11/09/21 16:44 Labs: Laboratory Results - last 48 hr 11/16/21 11/16/21 08:48 09:00 POC Glucose 140 H COVID-19 (ENDY) Negative COVID-19 Clin Com See Note Imaging Radiology Impressions: ITS Impressions Chest CT 11/16/21 16:32 IMPRESSION: No acute abnormality CT scan of the chest. Fleischner guidelines were followed. Medications Medications Current Medications Acetaminophen (Acetaminophen 325 Mg Tablet) 975 mg PO QID [facility] Last Admin: 11/17/21 13:14 Dose: 975 mg Documented by: Al Hydroxide/Mg Hydroxide (Magnesium Hydrox/Alum Hydrox 30 Ml Oral.Susp) 30 ml PO Q6H PRN PRN Reason: Heartburn/Nausea Last Admin: 11/13/21 19:45 Dose: 30 ml Documented by: Al Hydroxide/Mg Hydroxide (Magnesium Hydrox/Alum Hydrox 30 Ml Oral.Susp) 30 ml PO Q6H PRN PRN Reason: Heartburn/Nausea Last Admin: 11/12/21 20:08 Dose: 30 ml Documented by: Albuterol Sulfate (Albuterol Sulfate 90 Mcg 8 Gm Inhaler) 2 puff INHALE Q4H PRN PRN Reason: shortness of breath or wheezing Last Admin: 11/17/21 13:14 Dose: 2 puff Documented by: Capsaicin (Capsaicin 0.025% Cream 60 Gm Tube) 1 appl TOPICAL QID PRN; Protocol PRN Reason: Pain, Moderate (Pain Scale 4-6 Last Admin: 11/17/21 08:25 Dose: 1 appl Documented by: Ferrous Sulfate (Ferrous Sulfate 324 Mg Tablet.) 324 mg PO DAILY [facility] Last Admin: 11/17/21 08:28 Dose: 324 mg Documented by: Fluticasone/Vilanterol (Fluticasone/Vilanterol 200/25 Blst.W.Dev) 1 puff INHALE RDAILY [facility] Last Admin: 11/17/21 08:25 Dose: 1 puff Documented by: Gabapentin (Gabapentin 100 Mg Capsule) 200 mg PO BID [facility] Last Admin: 11/17/21 08:27 Dose: 200 mg Documented by: Hydroxyzine HCl (Hydroxyzine Hcl 25 Mg Tablet) 25 mg PO Q6H PRN PRN Reason: Anxiety Last Admin: 11/17/21 09:25 Dose: 25 mg Documented by: Radom Carbonate (Radom Carbonate 300 Mg Capsule) 600 mg PO BID [facility] Last Admin: 11/17/21 08:27 Dose: 600 mg Documented by: Nicotine (Nicotine 21 Mg Patch.Td24) 21 mg TRANSDERMA DAILY [facility] Last Admin: 11/17/21 08:29 Dose: 21 mg Documented by: Olanzapine (Olanzapine 10 Mg Tablet) 10 mg PO BEDTIME [facility] Last Admin: 11/16/21 22:14 Dose: 10 mg Documented by: Omeprazole (Omeprazole 20 Mg Capsule.) 20 mg PO DAILY@0630 [facility] Last Admin: 11/17/21 08:29 Dose: 20 mg Documented by: Oxcarbazepine (Oxcarbazepine 150 Mg Tablet) 150 mg PO BID [facility] Last Admin: 11/17/21 08:28 Dose: 150 mg Documented by: Prazosin HCl (Prazosin Hcl 5 Mg Capsule) 5 mg PO BEDTIME [facility]; Protocol Last Admin: 11/16/21 22:15 Dose: 5 mg Documented by: Quetiapine Fumarate (Quetiapine Fumarate 25 Mg Tablet) 25 mg PO BID PRN PRN Reason: anxiety Ropinirole HCl (Ropinirole Hcl 0.5 Mg Tablet) 0.5 mg PO BEDTIME [facility] Last Admin: 11/16/21 22:15 Dose: 0.5 mg Documented by: Sertraline HCl (Sertraline Hcl 50 Mg Tablet) 50 mg PO DAILY [facility] Last Admin: 11/17/21 08:28 Dose: 50 mg Documented by: Simethicone (Simethicone 80 Mg Tab.Chew) 80 mg PO QIDWMHS PRN PRN Reason: gas relief Trazodone HCl (Trazodone Hcl 100 Mg Tablet) 200 mg PO BEDTIME [facility] Last Admin: 11/16/21 22:15 Dose: 200 mg Documented by: Valacyclovir HCl (Valacycyclovir Hcl 1,000 Mg Tablet) 1,000 mg PO BID [facility] Last Admin: 11/17/21 08:28 Dose: 1,000 mg Documented by: Vitamin D (Cholecalciferol (Vitamin D3) 25 Mcg Tablet) 25 mcg PO DAILY [facility] Last Admin: 11/17/21 08:28 Dose: 25 mcg Documented by: Allergies Allergies Allergy/AdvReac Type Severity Reaction Status Date / Time aspirin [Aspirin] Allergy Severe HIVES,THROAT Verified 10/13/21 04:51 SWELLS bee pollen [BEE STINGS] Allergy Severe ANAPHYLAXIS Verified 10/13/21 04:51 diphenhydramine Allergy Severe hives, Verified 10/13/21 04:51 [From BENADRYL ALLERGY] throat swells Penicillins [PCN] Allergy Severe HIVES Verified 10/13/21 04:51 THROAT SWELLS Sulfa (Sulfonamide Allergy Intermediate HIVES Verified 10/13/21 04:51 Antibiotics) [SULFA (SULFONAMIDE ANTIBIOTICS)] tramadol [TRAMADOL] Allergy Intermediate ITCHING Verified 10/13/21 04:51 latex [LATEX] Allergy Unknown UNKNOWN Verified 10/13/21 04:51 penicillin G Allergy Unknown Unknown Verified 10/13/21 04:51 levofloxacin [From Levaquin] Allergy Hives Verified 10/13/21 04:51 bee stings Allergy Unknown Unknown Uncoded 10/13/21 04:51 D[employer] Allergy Unknown Unknown Uncoded 10/13/21 04:51 sulfa drugs Allergy Unknown Unknown Uncoded 10/13/21 04:51 Assessment & Plan Assessment & Plan (1) Suicidal ideation: Status: Acute Code(s): R45.851 - Suicidal ideations Assessment and Plan: ongoing (2) PTSD (post-traumatic stress disorder): Status: Acute Code(s): F43.10 - Post-traumatic stress disorder, unspecified Assessment and Plan: continue current regimen aside from increasing trazodone to 200 mg QHS as of 11/12, increasing prazosin to 5 mg QHS as of 11/12, increasing prazosin to 6 mg QHS as of 11/13, and increasing zyprexa to 10 mg QHS as of 11/13. (3) Borderline personality disorder: Status: Acute Code(s): F60.3 - Borderline personality disorder Assessment and Plan: brief inpatient stay, if feasible (4) Cocaine use disorder: Status: Acute Code(s): F14.10 - Cocaine abuse, uncomplicated Assessment and Plan: abstain (5) Abnormal EEG: Status: Acute Code(s): R94.01 - Abnormal electroencephalogram [EEG] Assessment and Plan: started trileptal 150 BID 11/12 as per neuro rec. (6) Parotid mass: Status: Acute Code(s): K11.8 - Other diseases of salivary glands Assessment and Plan: have requested oncology weigh in on the subject. per discussion with Dr. Lopes, next step would be FNA of the mass. will need to discuss with pt and pursue scheduling for outpt if pt is interested. (7) Carotid stenosis: Status: Acute Code(s): I65.29 - Occlusion and stenosis of unspecified carotid artery Assessment and Plan: F/U with outpt providers Assessment and Plan: continue outpt meds aside from as noted above. plan to dispo to [facility] respite bed 11/14/2021 Continue current regimen and plans with no changes today 11/15/2021 Continue current plans and regimen. No changes were made today 11/16- Pt desaturating in 88's when ambulating, visibly SOB, respiratory consult placed, may need Oxygen. no other concerns. 11/17 - place pulm consult for any Tx change recs. liaison with onc for FNA of parotid mass. otherwise continue current mgmt. aftercare planning - SNF. I spent minutes with the patient and/or on the patient floor today, greater than?50% of which was spent counseling/coordinating care. Reason for contiued inpatient stay Substantial Risk for: inability to function and rapid decompensation
--- NOTE | 2021-11-17 16:27 | PC.NURSE ---
Attempted to call Pulmonology [phone] to follow up on respiratory treatment consult, unable to reach anyone due to office being closed.
[2021-11-17 21:54] VITALS: BP 138/65; PULSE 82; RESP 18; TEMP 36.9; O2SAT 93
[2021-11-17] MEDS: OLANZapine 10 MG TABLET PO (22:05)
[2021-11-17] MEDS: QUEtiapine Fumarate 25 MG TABLET PO ×2 (22:06→22:15)
[2021-11-17] MEDS: traZODone HCL 100 MG TABLET 200 MG PO (22:07)
[2021-11-17] MEDS: rOPINIRole HCL 0.5 MG TABLET PO (22:08)
[2021-11-17] MEDS: Prazosin HCL 5 MG CAPSULE PO (22:08)
[2021-11-18 08:29] VITALS: BP 119/58; PULSE 77; RESP 16; TEMP 36.7; O2SAT 95
[2021-11-18] MEDS: Lithium Carbonate 300 MG CAPSULE 600 MG PO ×2 (08:38→21:05)
[2021-11-18] MEDS: Omeprazole 20 MG CAPSULE.DR PO (08:38)
[2021-11-18] MEDS: Gabapentin 100 MG CAPSULE 200 MG PO ×2 (08:38→21:04)
[2021-11-18] MEDS: Acetaminophen 325 MG TABLET 975 MG PO ×3 (08:38→18:12)
[2021-11-18] MEDS: Sertraline HCL 50 MG TABLET PO (08:38)
[2021-11-18] MEDS: Ferrous Sulfate 324 MG TABLET.DR PO (08:38)
[2021-11-18] MEDS: Cholecalciferol (Vitamin D3) 25 MCG TABLET PO (08:38)
[2021-11-18] MEDS: OXcarbazepine 150 MG TABLET PO ×2 (08:38→21:04)
[2021-11-18] MEDS: Nicotine 21 MG PATCH.TD24 TRANSDERMA (08:41)
[2021-11-18] MEDS: Fluticasone/Vilanterol 200/25 BLST.W.DEV 1 PUFF INHALE (08:56)
[2021-11-18] MEDS: LORazepam 0.5 MG TABLET 1.5 MG PO (14:41)
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
[2021-11-18] MEDS: Lidocaine HCl 1 % MPF 5 ML VIAL 4 ML SUBCUT (15:30)
--- NOTE | 2021-11-18 15:50 | P.PNPSI_ITS ---
Subjective Subjective Date of Service: 11/18/21 Reason For Visit: mood disorder Interim History: pt c/o feeling out of breath, saying she was satting 89-90% at rest on room air. SOB throughout the day with minimal exertion. still feeling hyper sometimes. no SI, mood more even, though. denies depression. per staff attending groups. visible, social. good sleep. Mental Status Exam Mental Status Exam Narrative: adequately dressed and groomed, obese, seated in the milieu. cooperative with interview. no PMA/PMR. speech nml in rate, amount, loudness. flattened tone, nml latency. thoughts linear and logical. affect constricted, normo-intense, non-labile, c/w context. mood still hyper sometimes. no SI/HI/AVH. Diagnostics Vital Signs (24Hr): Vital Signs - 24 hr 11/17/21 21:54 11/18/21 08:29 Temperature 98.5 F 98.1 F Pulse Rate 82 77 Respiratory Rate 18 16 Blood Pressure 138/65 119/58 L Pulse Oximetry 93 95 BMI result Body Mass Index 50.1 Labs Results: 11/09/21 16:44 11/09/21 16:44 Imaging Radiology Impressions: ITS Impressions Chest CT 11/16/21 16:32 IMPRESSION: No acute abnormality CT scan of the chest. Fleischner guidelines were followed. Medications Medications Current Medications Acetaminophen (Acetaminophen 325 Mg Tablet) 975 mg PO QID [facility] Last Admin: 11/18/21 14:06 Dose: 975 mg Documented by: Al Hydroxide/Mg Hydroxide (Magnesium Hydrox/Alum Hydrox 30 Ml Oral.Susp) 30 ml PO Q6H PRN PRN Reason: Heartburn/Nausea Last Admin: 11/12/21 20:08 Dose: 30 ml Documented by: Albuterol Sulfate (Albuterol Sulfate 90 Mcg 8 Gm Inhaler) 2 puff INHALE Q4H PRN PRN Reason: shortness of breath or wheezing Last Admin: 11/17/21 13:14 Dose: 2 puff Documented by: Capsaicin (Capsaicin 0.025% Cream 60 Gm Tube) 1 appl TOPICAL QID PRN; Protocol PRN Reason: Pain, Moderate (Pain Scale 4-6 Last Admin: 11/17/21 08:25 Dose: 1 appl Documented by: Ferrous Sulfate (Ferrous Sulfate 324 Mg Tablet.) 324 mg PO DAILY [facility] Last Admin: 11/18/21 08:38 Dose: 324 mg Documented by: Fluticasone/Vilanterol (Fluticasone/Vilanterol 200/25 Blst.W.Dev) 1 puff INHALE RDAILY [facility] Last Admin: 11/18/21 08:56 Dose: 1 puff Documented by: Gabapentin (Gabapentin 100 Mg Capsule) 200 mg PO BID [facility] Last Admin: 11/18/21 08:38 Dose: 200 mg Documented by: Hydroxyzine HCl (Hydroxyzine Hcl 25 Mg Tablet) 25 mg PO Q6H PRN PRN Reason: Anxiety Last Admin: 11/17/21 22:08 Dose: 25 mg Documented by: Lidocaine HCl (Lidocaine Hcl 1 % Mpf 5 Ml Vial) 4 ml SUBCUT ONCE ONE Stop: 11/18/21 16:01 Last Admin: 11/18/21 15:30 Dose: 4 ml Documented by: Leon Carbonate (Leon Carbonate 300 Mg Capsule) 600 mg PO BID [facility] Last Admin: 11/18/21 08:38 Dose: 600 mg Documented by: Nicotine (Nicotine 21 Mg Patch.Td24) 21 mg TRANSDERMA DAILY [facility] Last Admin: 11/18/21 08:41 Dose: 21 mg Documented by: Olanzapine (Olanzapine 10 Mg Tablet) 10 mg PO BEDTIME [facility] Last Admin: 11/17/21 22:05 Dose: 10 mg Documented by: Omeprazole (Omeprazole 20 Mg Capsule.Dr) 20 mg PO DAILY@0630 [facility] Last Admin: 11/18/21 08:38 Dose: 20 mg Documented by: Oxcarbazepine (Oxcarbazepine 150 Mg Tablet) 150 mg PO BID [facility] Last Admin: 11/18/21 08:38 Dose: 150 mg Documented by: Prazosin HCl (Prazosin Hcl 5 Mg Capsule) 5 mg PO BEDTIME [facility]; Protocol Last Admin: 11/17/21 22:08 Dose: 5 mg Documented by: Quetiapine Fumarate (Quetiapine Fumarate 25 Mg Tablet) 25 mg PO BID PRN PRN Reason: anxiety Last Admin: 11/17/21 22:15 Dose: 25 mg Documented by: Ropinirole HCl (Ropinirole Hcl 0.5 Mg Tablet) 0.5 mg PO BEDTIME [facility] Last Admin: 11/17/21 22:08 Dose: 0.5 mg Documented by: Sertraline HCl (Sertraline Hcl 50 Mg Tablet) 50 mg PO DAILY [facility] Last Admin: 11/18/21 08:38 Dose: 50 mg Documented by: Simethicone (Simethicone 80 Mg Tab.Chew) 80 mg PO QIDWMHS PRN PRN Reason: gas relief Trazodone HCl (Trazodone Hcl 100 Mg Tablet) 200 mg PO BEDTIME [facility] Last Admin: 11/17/21 22:07 Dose: 200 mg Documented by: Valacyclovir HCl (Valacycyclovir Hcl 1,000 Mg Tablet) 1,000 mg PO BID [facility] Last Admin: 11/18/21 08:38 Dose: 1,000 mg Documented by: Vitamin D (Cholecalciferol (Vitamin D3) 25 Mcg Tablet) 25 mcg PO DAILY [facility] Last Admin: 11/18/21 08:38 Dose: 25 mcg Documented by: Allergies Allergies Allergy/AdvReac Type Severity Reaction Status Date / Time aspirin [Aspirin] Allergy Severe HIVES,THROAT Verified 10/13/21 04:51 SWELLS bee pollen [BEE STINGS] Allergy Severe ANAPHYLAXIS Verified 10/13/21 04:51 diphenhydramine Allergy Severe hives, Verified 10/13/21 04:51 [From BENADRYL ALLERGY] throat swells Penicillins [PCN] Allergy Severe HIVES Verified 10/13/21 04:51 THROAT SWELLS Sulfa (Sulfonamide Allergy Intermediate HIVES Verified 10/13/21 04:51 Antibiotics) [SULFA (SULFONAMIDE ANTIBIOTICS)] tramadol [TRAMADOL] Allergy Intermediate ITCHING Verified 10/13/21 04:51 latex [LATEX] Allergy Unknown UNKNOWN Verified 10/13/21 04:51 penicillin G Allergy Unknown Unknown Verified 10/13/21 04:51 levofloxacin [From Levaquin] Allergy Hives Verified 10/13/21 04:51 bee stings Allergy Unknown Unknown Uncoded 10/13/21 04:51 D[employer] Allergy Unknown Unknown Uncoded 10/13/21 04:51 sulfa drugs Allergy Unknown Unknown Uncoded 10/13/21 04:51 Assessment & Plan Assessment & Plan (1) Borderline personality disorder: Status: Acute Code(s): F60.3 - Borderline personality disorder Assessment and Plan: PTSD (2) PTSD (post-traumatic stress disorder): Status: Acute Code(s): F43.10 - Post-traumatic stress disorder, unspecified (3) Cocaine use disorder: Status: Acute Code(s): F14.10 - Cocaine abuse, uncomplicated Assessment and Plan: abstain (4) Abnormal EEG: Status: Acute Code(s): R94.01 - Abnormal electroencephalogram [EEG] Assessment and Plan: started trileptal 150 BID 11/12 as per neuro rec. (5) Asthma-COPD overlap syndrome: Status: Acute Code(s): J44.9 - Chronic obstructive pulmonary disease, unspecified Assessment and Plan: Impression: 51-year-old lady with underlying obesity, FABIOLA, asthma/COPD overlap syndrome hospitalized with psychiatric diagnosis noted to have intermittent hypoxic episodes. Currently on Breo and nocturnal CPAP. At this time her asthma/COPD symptoms appears to be well controlled on current regimen of Breo and albuterol MDI. Intermittent hypoxic episodes appears to have resolved at this time and may have been related to over-sedation from psychiatric medications. At this time there is no ongoing asthma or COPD exacerbation. Recommendations: Continue with current regimen of Breo and albuterol MDI. Continue with nocturnal CPAP. Patient would benefit from outpatient pulmonary follow-up. (6) FABIOLA (obstructive sleep apnea): Status: Acute Code(s): G47.33 - Obstructive sleep apnea (adult) (pediatric) Assessment and Plan: CPAP at [facility] (7) Parotid mass: Status: Acute Code(s): K11.8 - Other diseases of salivary glands Assessment and Plan: FNA 11/18 (8) Carotid stenosis: Status: Acute Code(s): I65.29 - Occlusion and stenosis of unspecified carotid artery Assessment and Plan: outpt F/U Assessment and Plan: continue outpt meds aside from as noted above. plan to dispo to [facility] respite bed 11/14/2021 Continue current regimen and plans with no changes today 11/15/2021 Continue current plans and regimen.? No changes were made today 11/16- Pt desaturating in 88's when ambulating, visibly SOB, respiratory consult placed, may need Oxygen. no other concerns. 11/17 - place pulm consult for any Tx change recs.? liaison with onc for FNA of parotid mass.? otherwise continue current mgmt.? aftercare planning - SNF. 11/18 - pulm recommends continuing present care and outpt F/U. FNA done 11/18. dispo pending. I spent minutes with the patient and/or on the patient floor today, greater than?50% of which was spent counseling/coordinating care. Reason for contiued inpatient stay Substantial Risk for: harm to self
[2021-11-18] MEDS: Ibuprofen 400 MG TABLET PO (16:52)
[2021-11-18 18:00] VITALS: BP 136/81; PULSE 93; RESP 19; TEMP 36.7; O2SAT 94
[2021-11-18] MEDS: Albuterol Sulfate 90 MCG 8 GM INHALER 2 PUFF INHALE ×2 (18:10→19:25)
[2021-11-18] MEDS: hydrOXYzine HCL 25 MG TABLET PO (18:42)
[2021-11-18] MEDS: Prazosin HCL 5 MG CAPSULE PO (21:04)
[2021-11-18] MEDS: OLANZapine 10 MG TABLET PO (21:04)
[2021-11-18] MEDS: rOPINIRole HCL 0.5 MG TABLET PO (21:04)
[2021-11-18] MEDS: traZODone HCL 100 MG TABLET 200 MG PO (21:05)
[2021-11-18] MEDS: Ibuprofen 600 MG TABLET PO (22:55)
[2021-11-18] MEDS: QUEtiapine Fumarate 25 MG TABLET PO (22:58)
[2021-11-19] MEDS: Ibuprofen 600 MG TABLET PO (04:59)
[2021-11-19] MEDS: Omeprazole 20 MG CAPSULE.DR PO (05:19)
[2021-11-19 07:31] LABS: MANUAL DIFF FLAG NO
[2021-11-19 07:34] LABS: Basophils Absolute Auto 0.1 X10*3/uL (0.0-0.2); Basophils Percent Auto 0.9 % (0-2); Eosinophils Absolute Auto 0.2 X10*3/uL (0.0-0.4); Eosinophils Percent Auto 2.7 % (0-4); Hematocrit 36.5 % (37.0-47.0); Hemoglobin 11.5 g/dl (12.0-16.0); Imm Gran Abs Auto 0.06 X10*3/uL (0.00-0.03); Imm Gran Pct Auto 0.9 % (0.0-0.4); Lymphocytes Absolute Auto 2.4 X10*3/uL (1.2-4.9); Lymphocytes Percent Auto 34.6 % (20-40); Mean Corpuscular HGB Conc 31.5 g/dl (31.0-35.0); Mean Corpuscular Hemoglobin 29.9 pg (27.0-33.0); Mean Corpuscular Volume 94.8 fL (80.0-98.0); Mean Platelet Volume 9.6 fL (9.4-12.3); Monocytes Absolute Auto 0.5 X10*3/uL (0.1-1.2); Monocytes Percent Auto 6.8 % (2-11); Neutrophils Absolute Auto 3.8 x10*3/uL (2.0-8.3); Neutrophils Percent Auto 54.1 % (45-73); Platelet Count 234 X10*3/uL (160-400); Red Blood Count 3.85 X10*6/uL (4.20-5.50); Red Cell Distribution Width 12.9 % (11.0-16.0); White Blood Count 6.9 X10*3/uL (4.8-10.8)
[2021-11-19 07:48] LABS: Lithium 0.96 mmol/L (0.60-1.20)
[2021-11-19 07:53] LABS: Anion Gap 13 (12-20); Blood Urea Nitrogen 16 mg/dL (9-16); Calcium 9.5 mg/dL (8.4-10.2); Carbon Dioxide 28 mmol/L (22-29); Chloride 103 mmol/L (96-108); Creatinine Clr Calc Pharmacy 115.4; Estimated Glomerular Filt Rate > 60; Glucose Random 91 mg/dL (60-115); Potassium 4.5 mmol/L (3.3-5.1); Sodium 139 mmol/L (135-145)
[2021-11-19] MEDS: Nicotine 21 MG PATCH.TD24 TRANSDERMA (08:24)
[2021-11-19] MEDS: Fluticasone/Vilanterol 200/25 BLST.W.DEV 1 PUFF INHALE (08:25)
[2021-11-19] MEDS: Lithium Carbonate 300 MG CAPSULE 600 MG PO ×2 (08:27→21:13)
[2021-11-19] MEDS: Acetaminophen 325 MG TABLET 975 MG PO ×4 (08:27→21:11)
[2021-11-19] MEDS: Gabapentin 100 MG CAPSULE 200 MG PO ×2 (08:27→21:13)
[2021-11-19] MEDS: Ferrous Sulfate 324 MG TABLET.DR PO (08:27)
[2021-11-19] MEDS: Cholecalciferol (Vitamin D3) 25 MCG TABLET PO (08:27)
[2021-11-19] MEDS: OXcarbazepine 150 MG TABLET PO ×2 (08:27→21:13)
[2021-11-19] MEDS: Sertraline HCL 50 MG TABLET PO (08:28)
[2021-11-19 08:33] VITALS: BP 110/60; PULSE 100; RESP 20; TEMP 36.3; O2SAT 92
[2021-11-19 12:00] VITALS: BP 121/70; PULSE 100; RESP 18; TEMP 36.7; O2SAT 91
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
[2021-11-19 14:30] VITALS: BP 136/69; PULSE 95; RESP 18; TEMP 37; O2SAT 93
[2021-11-19 18:09] VITALS: BP 145/81; PULSE 103; RESP 18; O2SAT 94
[2021-11-19] MEDS: traZODone HCL 100 MG TABLET 200 MG PO (21:12)
[2021-11-19] MEDS: Prazosin HCL 5 MG CAPSULE PO (21:13)
[2021-11-19] MEDS: rOPINIRole HCL 0.5 MG TABLET PO (21:13)
[2021-11-19] MEDS: OLANZapine 10 MG TABLET PO (21:13)
--- NOTE | 2021-11-20 01:18 | PC.NURSE ---
BM-reports having a BM prior to going to bed.
[2021-11-20] MEDS: Acetaminophen 325 MG TABLET 975 MG PO ×3 (08:23→21:29)
[2021-11-20] MEDS: Gabapentin 100 MG CAPSULE 200 MG PO ×2 (08:24→21:28)
[2021-11-20] MEDS: Cholecalciferol (Vitamin D3) 25 MCG TABLET PO (08:24)
[2021-11-20] MEDS: OXcarbazepine 150 MG TABLET PO ×2 (08:24→21:29)
[2021-11-20] MEDS: Lithium Carbonate 300 MG CAPSULE 600 MG PO ×2 (08:25→21:29)
[2021-11-20] MEDS: Ferrous Sulfate 324 MG TABLET.DR PO (08:25)
[2021-11-20] MEDS: Sertraline HCL 50 MG TABLET PO (08:25)
[2021-11-20] MEDS: Fluticasone/Vilanterol 200/25 BLST.W.DEV 1 PUFF INHALE (08:26)
[2021-11-20] MEDS: Nicotine 21 MG PATCH.TD24 TRANSDERMA (08:27)
[2021-11-20] MEDS: Omeprazole 20 MG CAPSULE.DR PO (08:28)
[2021-11-20 08:34] VITALS: BP 122/60; PULSE 77; RESP 16; TEMP 36.6; O2SAT 93
[2021-11-20] MEDS: Albuterol Sulfate 90 MCG 8 GM INHALER 2 PUFF INHALE ×3 (10:38→22:18)
[2021-11-20] MEDS: Capsaicin 0.025% Cream 60 GM TUBE 1 APPL TOPICAL ×2 (11:21→21:32)
[2021-11-20] MEDS: Ibuprofen 600 MG TABLET PO (11:43)
--- NOTE | 2021-11-20 11:53 | PC.NURSE ---
Pt reported shortness of breath despite receiving Albuterol PRN. Pt also asked if her CPAP machine settings can be increased to 8 since she felt it was ineffective last night. This RN called Respiratory Therapy at [phone] and left a voicemail.
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
--- NOTE | 2021-11-20 16:09 | PC.NURSE ---
At 16:00, pt walked out of her room and sat down in the kitchen area. She was holding her shoulder and said I just fell out of my bed and landed on my shoulder. The fall was not heard or witnessed by staff. Pt complained of 10/10 pain. This RN administered scheduled dose of Tylenol and Capsaicin cream. No redness or edema noted on her right shoulder. 5 minutes after, pt was visible playing cards with another patient and laughing.
[2021-11-20] MEDS: Simethicone 80 MG TAB.CHEW PO (17:03)
[2021-11-20] MEDS: traZODone HCL 100 MG TABLET 200 MG PO (21:28)
[2021-11-20] MEDS: Prazosin HCL 1 MG CAPSULE 6 MG PO (21:28)
[2021-11-20] MEDS: rOPINIRole HCL 0.5 MG TABLET PO (21:29)
[2021-11-20] MEDS: OLANZapine 10 MG TABLET PO (21:29)
[2021-11-20 21:33] VITALS: BP 137/77; PULSE 83; TEMP 36.7; O2SAT 94
[2021-11-20 22:14] VITALS: BP 118/68; PULSE 98; RESP 32; TEMP 36.3; O2SAT 93
[2021-11-20 22:30] VITALS: BP 125/68; PULSE 92
[2021-11-20] MEDS: Magnesium Hydrox/Alum Hydrox 30 ML ORAL.SUSP PO (22:35)
[2021-11-21 08:26] VITALS: BP 113/58; PULSE 82; RESP 18; TEMP 36.4; O2SAT 93
[2021-11-21] MEDS: Sertraline HCL 50 MG TABLET PO (08:29)
[2021-11-21] MEDS: Cholecalciferol (Vitamin D3) 25 MCG TABLET PO (08:29)
[2021-11-21] MEDS: Gabapentin 100 MG CAPSULE 200 MG PO ×2 (08:29→20:06)
[2021-11-21] MEDS: Ferrous Sulfate 324 MG TABLET.DR PO (08:29)
[2021-11-21] MEDS: Lithium Carbonate 300 MG CAPSULE 600 MG PO ×2 (08:29→20:06)
[2021-11-21] MEDS: Omeprazole 20 MG CAPSULE.DR PO (08:29)
[2021-11-21] MEDS: Acetaminophen 325 MG TABLET 975 MG PO ×4 (08:30→20:07)
[2021-11-21] MEDS: Fluticasone/Vilanterol 200/25 BLST.W.DEV 1 PUFF INHALE (08:30)
[2021-11-21] MEDS: OXcarbazepine 150 MG TABLET PO ×2 (08:30→20:05)
[2021-11-21] MEDS: Nicotine 21 MG PATCH.TD24 TRANSDERMA (08:30)
[2021-11-21] MEDS: Capsaicin 0.025% Cream 60 GM TUBE 1 APPL TOPICAL ×2 (08:36→20:10)
[2021-11-21 10:54] VITALS: BMI 54.4
[2021-11-21] MEDS: Albuterol Sulfate 90 MCG 8 GM INHALER 2 PUFF INHALE (12:43)
--- NOTE | 2021-11-21 16:03 | P.PNPSI_ITS ---
Subjective Subjective Date of Service: 11/21/21 Reason For Visit: mood disorder Subjective Notes: Conditional Voluntary Medical Problems Affecting Mental Status: No Interim History: Met with patient. Discussed with staff. Did describe having verbal altercation with another patient yesterday. This patient was being provoked as per staff. Reports that her mood is okay. Did discuss sobriety and working on recovery. Reports overall having positive moments and negative moments but feels that things are getting better. Feels that CPAP equipment and setting being adjusted has been helpful regarding sleep and energy. Had 2 mechanical falls yesterday. No injuries noted. Otherwise reports at home using nebulizers around him worse and will therefore order same. Medication Compliance: Yes Side effects from medications: No Attending Groups: Yes Review of Systems Acute medical concerns: No Review of Systems Review of Systems Unremarkable Mental Status Exam Mental Status Exam Narrative: pleasant and engaged. Appropriately dressed. Hygiene fair. Obese. Using walking frame. Reports mood improving, affect appears bright at times inappropriate. No SI. No HI. No agitation. No psychosis. Insight and judgment okay Diagnostics Vital Signs (24Hr): Vital Signs - 24 hr 11/20/21 21:33 11/20/21 22:14 11/20/21 22:30 Temperature 98.1 F 97.3 F Pulse Rate 83 98 92 Respiratory Rate 32 H Blood Pressure 137/77 118/68 125/68 Pulse Oximetry 94 93 11/21/21 08:26 Temperature 97.6 F Pulse Rate 82 Respiratory Rate 18 Blood Pressure 113/58 L Pulse Oximetry 93 BMI result Body Mass Index 54.4 Labs Results: 11/19/21 07:26 11/19/21 07:26 Imaging Radiology Impressions: ITS Impressions Chest CT 11/16/21 16:32 IMPRESSION: No acute abnormality CT scan of the chest. Fleischner guidelines were followed. Guidance Needle Placement Ultrasound 11/18/21 16:30 IMPRESSION: Ultrasound-guided core biopsy of left parotid mass. Salivary Gland Biopsy Ultrasound 11/18/21 16:30 IMPRESSION: Ultrasound-guided core biopsy of left parotid mass. Medications Medications Current Medications Acetaminophen (Acetaminophen 325 Mg Tablet) 975 mg PO QID TEJA Last Admin: 11/21/21 12:42 Dose: 975 mg Documented by: Al Hydroxide/Mg Hydroxide (Magnesium Hydrox/Alum Hydrox 30 Ml Oral.Susp) 30 ml PO Q6H PRN PRN Reason: Heartburn/Nausea Last Admin: 11/20/21 22:35 Dose: 30 ml Documented by: Albuterol Sulfate (Albuterol Sulfate 90 Mcg 8 Gm Inhaler) 2 puff INHALE Q4H PRN PRN Reason: shortness of breath or wheezing Last Admin: 11/21/21 12:43 Dose: 2 puff Documented by: Albuterol Sulfate (Albuterol Sulfate (0.042%) 1.25 Mg/3 Ml Vial.Neb) 1.25 mg INHALE RQ4H PRN PRN Reason: Shortness of Breath Capsaicin (Capsaicin 0.025% Cream 60 Gm Tube) 1 appl TOPICAL QID PRN; Protocol PRN Reason: Pain, Moderate (Pain Scale 4-6 Last Admin: 11/21/21 08:36 Dose: 1 appl Documented by: Ferrous Sulfate (Ferrous Sulfate 324 Mg Tablet.) 324 mg PO DAILY [facility] Last Admin: 11/21/21 08:29 Dose: 324 mg Documented by: Fluticasone/Vilanterol (Fluticasone/Vilanterol 200/25 Blst.W.Dev) 1 puff INHALE RDAILY [facility] Last Admin: 11/21/21 08:30 Dose: 1 puff Documented by: Gabapentin (Gabapentin 100 Mg Capsule) 200 mg PO BID [facility] Last Admin: 11/21/21 08:29 Dose: 200 mg Documented by: Hydroxyzine HCl (Hydroxyzine Hcl 25 Mg Tablet) 25 mg PO Q6H PRN PRN Reason: Anxiety Last Admin: 11/18/21 18:42 Dose: 25 mg Documented by: [place] Carbonate ([place] Carbonate 300 Mg Capsule) 600 mg PO BID [facility] Last Admin: 11/21/21 08:29 Dose: 600 mg Documented by: Magnesium Citrate (Magnesium Citrate 300 Ml Solution) 300 ml PO DAILY PRN PRN Reason: constipation Magnesium Hydroxide (Milk Of Magnesia 30 Ml Oral.Susp) 30 ml PO DAILY PRN PRN Reason: Constipation Nicotine (Nicotine 21 Mg Patch.Td24) 21 mg TRANSDERMA DAILY [facility] Last Admin: 11/21/21 08:30 Dose: 21 mg Documented by: Olanzapine (Olanzapine 10 Mg Tablet) 10 mg PO BEDTIME [facility] Last Admin: 11/20/21 21:29 Dose: 10 mg Documented by: Omeprazole (Omeprazole 20 Mg Capsule.) 20 mg PO DAILY@0630 [facility] Last Admin: 11/21/21 08:29 Dose: 20 mg Documented by: Oxcarbazepine (Oxcarbazepine 150 Mg Tablet) 150 mg PO BID [facility] Last Admin: 11/21/21 08:30 Dose: 150 mg Documented by: Prazosin HCl (Prazosin Hcl 1 Mg Capsule) 6 mg PO BEDTIME [facility]; Protocol Last Admin: 11/20/21 21:28 Dose: 6 mg Documented by: Quetiapine Fumarate (Quetiapine Fumarate 25 Mg Tablet) 25 mg PO BID PRN PRN Reason: anxiety Last Admin: 11/18/21 22:58 Dose: 25 mg Documented by: Ropinirole HCl (Ropinirole Hcl 0.5 Mg Tablet) 0.5 mg PO BEDTIME [facility] Last Admin: 11/20/21 21:29 Dose: 0.5 mg Documented by: Sertraline HCl (Sertraline Hcl 50 Mg Tablet) 50 mg PO DAILY [facility] Last Admin: 11/21/21 08:29 Dose: 50 mg Documented by: Simethicone (Simethicone 80 Mg Tab.Chew) 80 mg PO QIDWMHS PRN PRN Reason: gas relief Last Admin: 11/20/21 17:03 Dose: 80 mg Documented by: Trazodone HCl (Trazodone Hcl 100 Mg Tablet) 200 mg PO BEDTIME [facility] Last Admin: 11/20/21 21:28 Dose: 200 mg Documented by: Valacyclovir HCl (Valacycyclovir Hcl 1,000 Mg Tablet) 1,000 mg PO BID [facility] Last Admin: 11/21/21 08:29 Dose: 1,000 mg Documented by: Vitamin D (Cholecalciferol (Vitamin D3) 25 Mcg Tablet) 25 mcg PO DAILY [facility] Last Admin: 11/21/21 08:29 Dose: 25 mcg Documented by: Allergies Allergies Allergy/AdvReac Type Severity Reaction Status Date / Time aspirin [Aspirin] Allergy Severe HIVES,THROAT Verified 10/13/21 04:51 SWELLS bee pollen [BEE STINGS] Allergy Severe ANAPHYLAXIS Verified 10/13/21 04:51 diphenhydramine Allergy Severe hives, Verified 10/13/21 04:51 [From BENADRYL ALLERGY] throat swells Penicillins [PCN] Allergy Severe HIVES Verified 10/13/21 04:51 THROAT SWELLS Sulfa (Sulfonamide Allergy Intermediate HIVES Verified 10/13/21 04:51 Antibiotics) [SULFA (SULFONAMIDE ANTIBIOTICS)] tramadol [TRAMADOL] Allergy Intermediate ITCHING Verified 10/13/21 04:51 latex [LATEX] Allergy Unknown UNKNOWN Verified 10/13/21 04:51 penicillin G Allergy Unknown Unknown Verified 10/13/21 04:51 levofloxacin [From Levaquin] Allergy Hives Verified 10/13/21 04:51 bee stings Allergy Unknown Unknown Uncoded 10/13/21 04:51 [employer] Allergy Unknown Unknown Uncoded 10/13/21 04:51 sulfa drugs Allergy Unknown Unknown Uncoded 10/13/21 04:51 Assessment & Plan Assessment & Plan (1) Borderline personality disorder: Status: Acute Code(s): F60.3 - Borderline personality disorder Assessment and Plan: brief inpatient stay, if possible (2) PTSD (post-traumatic stress disorder): Status: Acute Code(s): F43.10 - Post-traumatic stress disorder, unspecified Assessment and Plan: continue current regimen aside from increasing trazodone to 200 mg QHS as of 11/12, increasing prazosin to 5 mg QHS as of 11/12, increasing prazosin to 6 mg QHS as of 11/20, and increasing zyprexa to 10 mg QHS as of 11/13. (3) Cocaine use disorder: Status: Acute Code(s): F14.10 - Cocaine abuse, uncomplicated Assessment and Plan: abstain (4) Abnormal EEG: Status: Acute Code(s): R94.01 - Abnormal electroencephalogram [EEG] Assessment and Plan: started trileptal 150 BID 11/12 as per neuro rec. (5) Asthma-COPD overlap syndrome: Status: Acute Code(s): J44.9 - Chronic obstructive pulmonary disease, unspecified Assessment and Plan: Impression: 51-year-old lady with underlying obesity, FABIOLA, asthma/COPD overlap syndrome hospitalized with psychiatric diagnosis noted to have intermittent hypoxic episodes. Currently on Breo and nocturnal CPAP. At this time her asthma/COPD symptoms appears to be well controlled on current regimen of Breo and albuterol MDI. Intermittent hypoxic episodes appears to have resolved at this time and may have been related to over-sedation from psychiatric medications. At this time there is no ongoing asthma or COPD exacerbation. Recommendations: Continue with current regimen of Breo and albuterol MDI. Continue with nocturnal CPAP. Patient would benefit from outpatient pulmonary follow-up. (6) FABIOLA (obstructive sleep apnea): Status: Acute Code(s): G47.33 - Obstructive sleep apnea (adult) (pediatric) Assessment and Plan: CPAP at [facility] (7) Parotid mass: Status: Acute Code(s): K11.8 - Other diseases of salivary glands Assessment and Plan: FNA 11/18 (8) Carotid stenosis: Status: Acute Code(s): I65.29 - Occlusion and stenosis of unspecified carotid artery Assessment and Plan: outpt F/U Assessment and Plan: continue outpt meds aside from as noted above. plan to dispo to [facility] respite bed 11/14/2021 Continue current regimen and plans with no changes today 11/15/2021 Continue current plans and regimen.? No changes were made today 11/16- Pt desaturating in 88's when ambulating, visibly SOB, respiratory consult placed, may need Oxygen. no other concerns. 11/17 - place pulm consult for any Tx change recs.? liaison with onc for FNA of parotid mass.? otherwise continue current mgmt.? aftercare planning - [facility]. 11/18 - pulm recommends continuing present care and outpt F/U. FNA done 11/18. dispo pending. 11/19 - two episodes of what appeared to be pseudoseizures: brief episodes of altered consciousness. 11/20 - no further pseudoSz. increasing prazosin to 6 mg tonight. awaiting acceptance at [facility]. 11/21: no changes to primary teams plan I spent minutes with the patient and/or on the patient floor today, greater than?50% of which was spent counseling/coordinating care. Reason for contiued inpatient stay Substantial Risk for: inability to function and rapid decompensation
[2021-11-21] MEDS: rOPINIRole HCL 0.5 MG TABLET PO (20:05)
[2021-11-21] MEDS: Prazosin HCL 1 MG CAPSULE 6 MG PO (20:05)
[2021-11-21] MEDS: hydrOXYzine HCL 25 MG TABLET PO (20:06)
[2021-11-21] MEDS: OLANZapine 10 MG TABLET PO (20:06)
[2021-11-21] MEDS: traZODone HCL 100 MG TABLET 200 MG PO (20:06)
[2021-11-21] MEDS: QUEtiapine Fumarate 25 MG TABLET PO (20:06)
[2021-11-21 20:14] VITALS: BP 137/72; PULSE 92; TEMP 36.2; O2SAT 93
[2021-11-21] MEDS: Magnesium Hydrox/Alum Hydrox 30 ML ORAL.SUSP PO (21:37)
[2021-11-22 08:08] VITALS: BP 126/70; PULSE 76; RESP 18; TEMP 36.8; O2SAT 90
[2021-11-22] MEDS: Fluticasone/Vilanterol 200/25 BLST.W.DEV 1 PUFF INHALE (08:32)
[2021-11-22] MEDS: Albuterol Sulfate 90 MCG 8 GM INHALER 1 PUFF INHALE ×2 (08:33→15:24)
[2021-11-22] MEDS: Nicotine 21 MG PATCH.TD24 TRANSDERMA (08:34)
[2021-11-22] MEDS: Cholecalciferol (Vitamin D3) 25 MCG TABLET PO (08:35)
[2021-11-22] MEDS: Acetaminophen 325 MG TABLET 975 MG PO ×4 (08:35→21:14)
[2021-11-22] MEDS: Sertraline HCL 50 MG TABLET PO (08:35)
[2021-11-22] MEDS: Gabapentin 100 MG CAPSULE 200 MG PO ×2 (08:35→21:13)
[2021-11-22] MEDS: Lithium Carbonate 300 MG CAPSULE 600 MG PO ×2 (08:35→21:13)
[2021-11-22] MEDS: OXcarbazepine 150 MG TABLET PO ×2 (08:36→21:14)
[2021-11-22] MEDS: Omeprazole 20 MG CAPSULE.DR PO (08:36)
[2021-11-22] MEDS: Ferrous Sulfate 324 MG TABLET.DR PO (08:36)
[2021-11-22] MEDS: Capsaicin 0.025% Cream 60 GM TUBE 1 APPL TOPICAL (11:32)
[2021-11-22 11:43] VITALS: BP 141/76; PULSE 97; TEMP 36.3; O2SAT 95
--- NOTE | 2021-11-22 12:01 | HO.PSYCHPN ---
Subjective Subjective Date of Service: 11/22/21 Reason For Visit: mood disorder Interim History: Met with patient. Discussed with staff. Reports that her mood is okay. Overall managing things well. Sleep and energy better. Had 2 mechanical falls yesterday. No injuries noted. Otherwise reports at home using nebulizers scheduled q 4 hrs and will therefore order same. Hopeful around SNF- does need assiatnce with basic activities limited by shortness of breath Medication Compliance: Yes Side effects from medications: No Attending Groups: Intermittent Review of Systems Acute medical concerns: No Review of Systems Review of Systems Unremarkable Mental Status Exam Mental Status Exam Narrative: pleasant and engaged. Appropriately dressed. Hygiene fair. Obese. Using walking frame. Reports mood improving, affect appears bright at times inappropriate. No SI. No HI. No agitation. No psychosis. Insight and judgment okay Diagnostics Vital Signs (24Hr): Vital Signs - 24 hr 11/21/21 20:14 11/22/21 08:08 11/22/21 11:43 Temperature 97.2 F 98.3 F 97.4 F Pulse Rate 92 76 97 Respiratory Rate 18 Blood Pressure 137/72 126/70 141/76 H Pulse Oximetry 93 90 L 95 BMI result Body Mass Index 54.4 Labs Results: 11/19/21 07:26 11/19/21 07:26 Imaging Radiology Impressions: ITS Impressions Chest CT 11/16/21 16:32 IMPRESSION: No acute abnormality CT scan of the chest. Fleischner guidelines were followed. Guidance Needle Placement Ultrasound 11/18/21 16:30 IMPRESSION: Ultrasound-guided core biopsy of left parotid mass. Salivary Gland Biopsy Ultrasound 11/18/21 16:30 IMPRESSION: Ultrasound-guided core biopsy of left parotid mass. Medications Medications Current Medications Acetaminophen (Acetaminophen 325 Mg Tablet) 975 mg PO QID TEJA Last Admin: 11/22/21 08:35 Dose: 975 mg Documented by: Al Hydroxide/Mg Hydroxide (Magnesium Hydrox/Alum Hydrox 30 Ml Oral.Susp) 30 ml PO Q6H PRN PRN Reason: Heartburn/Nausea Last Admin: 11/21/21 21:37 Dose: 30 ml Documented by: Albuterol Sulfate (Albuterol Sulfate 90 Mcg 8 Gm Inhaler) 1 puff INHALE RQ4H PRN PRN Reason: mild shortness of breath Last Admin: 11/22/21 08:33 Dose: 1 puff Documented by: Albuterol Sulfate (Albuterol Sulfate (0.042%) 1.25 Mg/3 Ml Vial.Neb) 1.25 mg INHALE RQ4H PRN PRN Reason: moderate shortness of breath Capsaicin (Capsaicin 0.025% Cream 60 Gm Tube) 1 appl TOPICAL QID PRN; Protocol PRN Reason: Pain, Moderate (Pain Scale 4-6 Last Admin: 11/22/21 11:32 Dose: 1 appl Documented by: Ferrous Sulfate (Ferrous Sulfate 324 Mg Tablet.) 324 mg PO DAILY [facility] Last Admin: 11/22/21 08:36 Dose: 324 mg Documented by: Fluticasone/Vilanterol (Fluticasone/Vilanterol 200/25 Blst.W.Dev) 1 puff INHALE RDAILY [facility] Last Admin: 11/22/21 08:32 Dose: 1 puff Documented by: Gabapentin (Gabapentin 100 Mg Capsule) 200 mg PO BID [facility] Last Admin: 11/22/21 08:35 Dose: 200 mg Documented by: Hydroxyzine HCl (Hydroxyzine Hcl 25 Mg Tablet) 25 mg PO Q6H PRN PRN Reason: Anxiety Last Admin: 11/21/21 20:06 Dose: 25 mg Documented by: [place] Carbonate ([place] Carbonate 300 Mg Capsule) 600 mg PO BID [facility] Last Admin: 11/22/21 08:35 Dose: 600 mg Documented by: Magnesium Citrate (Magnesium Citrate 300 Ml Solution) 300 ml PO DAILY PRN PRN Reason: constipation Magnesium Hydroxide (Milk Of Magnesia 30 Ml Oral.Susp) 30 ml PO DAILY PRN PRN Reason: Constipation Nicotine (Nicotine 21 Mg Patch.Td24) 21 mg TRANSDERMA DAILY [facility] Last Admin: 11/22/21 08:34 Dose: 21 mg Documented by: Olanzapine (Olanzapine 10 Mg Tablet) 10 mg PO BEDTIME [facility] Last Admin: 11/21/21 20:06 Dose: 10 mg Documented by: Omeprazole (Omeprazole 20 Mg Capsule.) 20 mg PO DAILY@0630 [facility] Last Admin: 11/22/21 08:36 Dose: 20 mg Documented by: Oxcarbazepine (Oxcarbazepine 150 Mg Tablet) 150 mg PO BID [facility] Last Admin: 11/22/21 08:36 Dose: 150 mg Documented by: Prazosin HCl (Prazosin Hcl 1 Mg Capsule) 6 mg PO BEDTIME [facility]; Protocol Last Admin: 11/21/21 20:05 Dose: 6 mg Documented by: Quetiapine Fumarate (Quetiapine Fumarate 25 Mg Tablet) 25 mg PO BID PRN PRN Reason: anxiety Last Admin: 11/21/21 20:06 Dose: 25 mg Documented by: Ropinirole HCl (Ropinirole Hcl 0.5 Mg Tablet) 0.5 mg PO BEDTIME TEJA Last Admin: 11/21/21 20:05 Dose: 0.5 mg Documented by: Sertraline HCl (Sertraline Hcl 50 Mg Tablet) 50 mg PO DAILY [facility] Last Admin: 11/22/21 08:35 Dose: 50 mg Documented by: Simethicone (Simethicone 80 Mg Tab.Chew) 80 mg PO QIDWMHS PRN PRN Reason: gas relief Last Admin: 11/20/21 17:03 Dose: 80 mg Documented by: Trazodone HCl (Trazodone Hcl 100 Mg Tablet) 200 mg PO BEDTIME [facility] Last Admin: 11/21/21 20:06 Dose: 200 mg Documented by: Valacyclovir HCl (Valacycyclovir Hcl 1,000 Mg Tablet) 1,000 mg PO BID [facility] Last Admin: 11/22/21 08:36 Dose: 1,000 mg Documented by: Vitamin D (Cholecalciferol (Vitamin D3) 25 Mcg Tablet) 25 mcg PO DAILY [facility] Last Admin: 11/22/21 08:35 Dose: 25 mcg Documented by: Allergies Allergies Allergy/AdvReac Type Severity Reaction Status Date / Time aspirin [Aspirin] Allergy Severe HIVES,THROAT Verified 10/13/21 04:51 SWELLS bee pollen [BEE STINGS] Allergy Severe ANAPHYLAXIS Verified 10/13/21 04:51 diphenhydramine Allergy Severe hives, Verified 10/13/21 04:51 [From BENADRYL ALLERGY] throat swells Penicillins [PCN] Allergy Severe HIVES Verified 10/13/21 04:51 THROAT SWELLS Sulfa (Sulfonamide Allergy Intermediate HIVES Verified 10/13/21 04:51 Antibiotics) [SULFA (SULFONAMIDE ANTIBIOTICS)] tramadol [TRAMADOL] Allergy Intermediate ITCHING Verified 10/13/21 04:51 latex [LATEX] Allergy Unknown UNKNOWN Verified 10/13/21 04:51 penicillin G Allergy Unknown Unknown Verified 10/13/21 04:51 levofloxacin [From Levaquin] Allergy Hives Verified 10/13/21 04:51 bee stings Allergy Unknown Unknown Uncoded 10/13/21 04:51 [employer] Allergy Unknown Unknown Uncoded 10/13/21 04:51 sulfa drugs Allergy Unknown Unknown Uncoded 10/13/21 04:51 Assessment & Plan Assessment & Plan (1) Borderline personality disorder: Status: Acute Code(s): F60.3 - Borderline personality disorder Assessment and Plan: brief inpatient stay, if possible (2) PTSD (post-traumatic stress disorder): Status: Acute Code(s): F43.10 - Post-traumatic stress disorder, unspecified Assessment and Plan: continue current regimen aside from increasing trazodone to 200 mg QHS as of 11/12, increasing prazosin to 5 mg QHS as of 11/12, increasing prazosin to 6 mg QHS as of 11/20, and increasing zyprexa to 10 mg QHS as of 11/13. (3) Cocaine use disorder: Status: Acute Code(s): F14.10 - Cocaine abuse, uncomplicated Assessment and Plan: abstain (4) Abnormal EEG: Status: Acute Code(s): R94.01 - Abnormal electroencephalogram [EEG] Assessment and Plan: started trileptal 150 BID 11/12 as per neuro rec. (5) Asthma-COPD overlap syndrome: Status: Acute Code(s): J44.9 - Chronic obstructive pulmonary disease, unspecified Assessment and Plan: Impression: 51-year-old lady with underlying obesity, FABIOLA, asthma/COPD overlap syndrome hospitalized with psychiatric diagnosis noted to have intermittent hypoxic episodes. Currently on Breo and nocturnal CPAP. At this time her asthma/COPD symptoms appears to be well controlled on current regimen of Breo and albuterol MDI. Intermittent hypoxic episodes appears to have resolved at this time and may have been related to over-sedation from psychiatric medications. At this time there is no ongoing asthma or COPD exacerbation. Recommendations: Continue with current regimen of Breo and albuterol MDI. Continue with nocturnal CPAP. Patient would benefit from outpatient pulmonary follow-up. (6) FABIOLA (obstructive sleep apnea): Status: Acute Code(s): G47.33 - Obstructive sleep apnea (adult) (pediatric) Assessment and Plan: CPAP at [facility] (7) Parotid mass: Status: Acute Code(s): K11.8 - Other diseases of salivary glands Assessment and Plan: FNA 11/18 (8) Carotid stenosis: Status: Acute Code(s): I65.29 - Occlusion and stenosis of unspecified carotid artery Assessment and Plan: outpt F/U Assessment and Plan: continue outpt meds aside from as noted above. plan to dispo to [facility] respite bed 11/14/2021 Continue current regimen and plans with no changes today 11/15/2021 Continue current plans and regimen.? No changes were made today 11/16- Pt desaturating in 88's when ambulating, visibly SOB, respiratory consult placed, may need Oxygen. no other concerns. 11/17 - place pulm consult for any Tx change recs.? liaison with onc for FNA of parotid mass.? otherwise continue current mgmt.? aftercare planning - [facility]. 11/18 - pulm recommends continuing present care and outpt F/U. FNA done 11/18. dispo pending. 11/19 - two episodes of what appeared to be pseudoseizures: brief episodes of altered consciousness. 11/20 - no further pseudoSz. increasing prazosin to 6 mg tonight. awaiting acceptance at [facility]. 11/21 and 11/22: no changes to primary teams plan I spent minutes with the patient and/or on the patient floor today, greater than?50% of which was spent counseling/coordinating care. Reason for contiued inpatient stay Substantial Risk for: rapid decompensation
[2021-11-22 21:05] VITALS: BP 125/69; PULSE 79; RESP 18; TEMP 36.6; O2SAT 94
[2021-11-22] MEDS: Prazosin HCL 1 MG CAPSULE 6 MG PO (21:11)
[2021-11-22] MEDS: traZODone HCL 100 MG TABLET 200 MG PO (21:12)
[2021-11-22] MEDS: rOPINIRole HCL 0.5 MG TABLET PO (21:14)
[2021-11-22] MEDS: OLANZapine 10 MG TABLET PO (21:14)
[2021-11-23 06:00] VITALS: BP 120/59; PULSE 82; TEMP 36.3; O2SAT 93
[2021-11-23] MEDS: Fluticasone/Vilanterol 200/25 BLST.W.DEV 1 PUFF INHALE (08:19)
[2021-11-23] MEDS: Nicotine 21 MG PATCH.TD24 TRANSDERMA (08:19)
[2021-11-23] MEDS: Capsaicin 0.025% Cream 60 GM TUBE 1 APPL TOPICAL ×2 (08:20→20:45)
[2021-11-23] MEDS: Cholecalciferol (Vitamin D3) 25 MCG TABLET PO (08:23)
[2021-11-23] MEDS: Gabapentin 100 MG CAPSULE 200 MG PO ×2 (08:23→20:43)
[2021-11-23] MEDS: Sertraline HCL 50 MG TABLET PO (08:23)
[2021-11-23] MEDS: Lithium Carbonate 300 MG CAPSULE 600 MG PO ×2 (08:23→20:42)
[2021-11-23] MEDS: Omeprazole 20 MG CAPSULE.DR PO (08:23)
[2021-11-23] MEDS: Ferrous Sulfate 324 MG TABLET.DR PO (08:23)
[2021-11-23] MEDS: OXcarbazepine 150 MG TABLET PO ×2 (08:23→20:44)
[2021-11-23] MEDS: Acetaminophen 325 MG TABLET 975 MG PO ×4 (08:27→20:43)
[2021-11-23] MEDS: QUEtiapine Fumarate 25 MG TABLET PO ×2 (08:45→20:44)
--- NOTE | 2021-11-23 15:36 | P.PNPSI_ITS ---
Subjective Subjective Date of Service: 11/23/21 Reason For Visit: mood disorder Interim History: pt c/o falling out of bed nightly. unwitnessed, even with 1:1 staff for roommate 23/05. advised pt could place her mattress on the floor if she wished. 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 she c/o nightmares and insomnia, prazosin increased to 8 mg at bedtime (VS stable and WNL). per staff, napping on and off during the day. somatically preoccupied. sying she is falling out of bed nightly, but 1:1 in room has never seen it. anxious, pleasant. staring episode last evening c/w pseudoSz. Mental Status Exam Mental Status Exam Narrative: adequately dressed and groomed, obese, seated in the milieu. cooperative with interview. no PMA/PMR. speech nml in rate, amount, loudness, tone, latency. thoughts linear and logical. affect full range, normo-intense, non-labile, c/w context. no SI/HI/AVH expressed. Diagnostics Vital Signs (24Hr): Vital Signs - 24 hr 11/22/21 21:05 11/23/21 06:00 Temperature 98 F 97.3 F Pulse Rate 79 82 Respiratory Rate 18 Blood Pressure 125/69 120/59 L Pulse Oximetry 94 93 BMI result Body Mass Index 54.4 Labs Results: 11/19/21 07:26 11/19/21 07:26 Imaging Radiology Impressions: ITS Impressions Chest CT 11/16/21 16:32 IMPRESSION: No acute abnormality CT scan of the chest. Fleischner guidelines were followed. Guidance Needle Placement Ultrasound 11/18/21 16:30 IMPRESSION: Ultrasound-guided core biopsy of left parotid mass. Salivary Gland Biopsy Ultrasound 11/18/21 16:30 IMPRESSION: Ultrasound-guided core biopsy of left parotid mass. Medications Medications Current Medications Acetaminophen (Acetaminophen 325 Mg Tablet) 975 mg PO QID TEJA Last Admin: 11/23/21 12:53 Dose: 975 mg Documented by: Al Hydroxide/Mg Hydroxide (Magnesium Hydrox/Alum Hydrox 30 Ml Oral.Susp) 30 ml PO Q6H PRN PRN Reason: Heartburn/Nausea Last Admin: 11/21/21 21:37 Dose: 30 ml Documented by: Albuterol Sulfate (Albuterol Sulfate 90 Mcg 8 Gm Inhaler) 1 puff INHALE RQ4H PRN PRN Reason: mild shortness of breath Last Admin: 11/22/21 15:24 Dose: 1 puff Documented by: Albuterol Sulfate (Albuterol Sulfate (0.042%) 1.25 Mg/3 Ml Vial.Neb) 1.25 mg INHALE RQ4H PRN PRN Reason: moderate shortness of breath Capsaicin (Capsaicin 0.025% Cream 60 Gm Tube) 1 appl TOPICAL QID PRN; Protocol PRN Reason: Pain, Moderate (Pain Scale 4-6 Last Admin: 11/23/21 08:20 Dose: 1 appl Documented by: Ferrous Sulfate (Ferrous Sulfate 324 Mg Tablet.) 324 mg PO DAILY [facility] Last Admin: 11/23/21 08:23 Dose: 324 mg Documented by: Fluticasone/Vilanterol (Fluticasone/Vilanterol 200/25 Blst.W.Dev) 1 puff INHALE RDAILY [facility] Last Admin: 11/23/21 08:19 Dose: 1 puff Documented by: Gabapentin (Gabapentin 100 Mg Capsule) 200 mg PO BID [facility] Last Admin: 11/23/21 08:23 Dose: 200 mg Documented by: Hydroxyzine HCl (Hydroxyzine Hcl 25 Mg Tablet) 25 mg PO Q6H PRN PRN Reason: Anxiety Last Admin: 11/21/21 20:06 Dose: 25 mg Documented by: [place] Carbonate (Cumings Carbonate 300 Mg Capsule) 600 mg PO BID [facility] Last Admin: 11/23/21 08:23 Dose: 600 mg Documented by: Magnesium Citrate (Magnesium Citrate 300 Ml Solution) 300 ml PO DAILY PRN PRN Reason: constipation Magnesium Hydroxide (Milk Of Magnesia 30 Ml Oral.Susp) 30 ml PO DAILY PRN PRN Reason: Constipation Nicotine (Nicotine 21 Mg Patch.Td24) 21 mg TRANSDERMA DAILY [facility] Last Admin: 11/23/21 08:19 Dose: 21 mg Documented by: Olanzapine (Olanzapine 10 Mg Tablet) 10 mg PO BEDTIME [facility] Last Admin: 11/22/21 21:14 Dose: 10 mg Documented by: Omeprazole (Omeprazole 20 Mg Capsule.) 20 mg PO DAILY@0630 [facility] Last Admin: 11/23/21 08:23 Dose: 20 mg Documented by: Oxcarbazepine (Oxcarbazepine 150 Mg Tablet) 150 mg PO BID [facility] Last Admin: 11/23/21 08:23 Dose: 150 mg Documented by: Prazosin HCl (Prazosin Hcl 1 Mg Capsule) 8 mg PO BEDTIME [facility]; Protocol Quetiapine Fumarate (Quetiapine Fumarate 25 Mg Tablet) 25 mg PO BID PRN PRN Reason: anxiety Last Admin: 11/23/21 08:45 Dose: 25 mg Documented by: Ropinirole HCl (Ropinirole Hcl 0.5 Mg Tablet) 0.5 mg PO BEDTIME [facility] Last Admin: 11/22/21 21:14 Dose: 0.5 mg Documented by: Sertraline HCl (Sertraline Hcl 50 Mg Tablet) 50 mg PO DAILY [facility] Last Admin: 11/23/21 08:23 Dose: 50 mg Documented by: Simethicone (Simethicone 80 Mg Tab.Chew) 80 mg PO QIDWMHS PRN PRN Reason: gas relief Last Admin: 11/20/21 17:03 Dose: 80 mg Documented by: Trazodone HCl (Trazodone Hcl 100 Mg Tablet) 200 mg PO BEDTIME [facility] Last Admin: 11/22/21 21:12 Dose: 200 mg Documented by: Valacyclovir HCl (Valacycyclovir Hcl 1,000 Mg Tablet) 1,000 mg PO BID [facility] Last Admin: 11/23/21 08:23 Dose: 1,000 mg Documented by: Vitamin D (Cholecalciferol (Vitamin D3) 25 Mcg Tablet) 25 mcg PO DAILY [facility] Last Admin: 11/23/21 08:23 Dose: 25 mcg Documented by: Allergies Allergies Allergy/AdvReac Type Severity Reaction Status Date / Time aspirin [Aspirin] Allergy Severe HIVES,THROAT Verified 10/13/21 04:51 SWELLS bee pollen [BEE STINGS] Allergy Severe ANAPHYLAXIS Verified 10/13/21 04:51 diphenhydramine Allergy Severe hives, Verified 10/13/21 04:51 [From BENADRYL ALLERGY] throat swells Penicillins [PCN] Allergy Severe HIVES Verified 10/13/21 04:51 THROAT SWELLS Sulfa (Sulfonamide Allergy Intermediate HIVES Verified 10/13/21 04:51 Antibiotics) [SULFA (SULFONAMIDE ANTIBIOTICS)] tramadol [TRAMADOL] Allergy Intermediate ITCHING Verified 10/13/21 04:51 latex [LATEX] Allergy Unknown UNKNOWN Verified 10/13/21 04:51 penicillin G Allergy Unknown Unknown Verified 10/13/21 04:51 levofloxacin [From Levaquin] Allergy Hives Verified 10/13/21 04:51 bee stings Allergy Unknown Unknown Uncoded 10/13/21 04:51 DairyCare Allergy Unknown Unknown Uncoded 10/13/21 04:51 sulfa drugs Allergy Unknown Unknown Uncoded 10/13/21 04:51 Assessment & Plan Assessment & Plan (1) Borderline personality disorder: Status: Acute Code(s): F60.3 - Borderline personality disorder Assessment and Plan: brief inpatient stay, if possible (2) PTSD (post-traumatic stress disorder): Status: Acute Code(s): F43.10 - Post-traumatic stress disorder, unspecified Assessment and Plan: continue current regimen aside from increasing trazodone to 200 mg QHS as of 11/12, increasing prazosin to 5 mg QHS as of 11/12, increasing prazosin to 8 mg QHS as of 11/23, and increasing zyprexa to 10 mg QHS as of 11/13. (3) Cocaine use disorder: Status: Acute Code(s): F14.10 - Cocaine abuse, uncomplicated Assessment and Plan: abstain (4) Abnormal EEG: Status: Acute Code(s): R94.01 - Abnormal electroencephalogram [EEG] Assessment and Plan: started trileptal 150 BID 11/12 as per neuro rec. (5) Asthma-COPD overlap syndrome: Status: Acute Code(s): J44.9 - Chronic obstructive pulmonary disease, unspecified Assessment and Plan: Impression: 51-year-old lady with underlying obesity, FABIOLA, asthma/COPD overlap syndrome hospitalized with psychiatric diagnosis noted to have intermittent hypoxic episodes. Currently on Breo and nocturnal CPAP. At this time her asthma/COPD symptoms appears to be well controlled on current regimen of Breo and albuterol MDI. Intermittent hypoxic episodes appears to have resolved at this time and may have been related to over-sedation from psychiatric medications. At this time there is no ongoing asthma or COPD exacerbation. Recommendations: Continue with current regimen of Breo and albuterol MDI. Continue with nocturnal CPAP. Patient would benefit from outpatient pulmonary follow-up. (6) FABIOLA (obstructive sleep apnea): Status: Acute Code(s): G47.33 - Obstructive sleep apnea (adult) (pediatric) Assessment and Plan: CPAP at [facility] (7) Parotid mass: Status: Acute Code(s): K11.8 - Other diseases of salivary glands Assessment and Plan: FNA 11/18. no cancer, appears to be infection of salivary gland. (8) Carotid stenosis: Status: Acute Code(s): I65.29 - Occlusion and stenosis of unspecified carotid artery Assessment and Plan: outpt F/U Assessment and Plan: continue outpt meds aside from as noted above. plan to dispo to [facility] respite bed 11/14/2021 Continue current regimen and plans with no changes today 11/15/2021 Continue current plans and regimen.? No changes were made today 11/16- Pt desaturating in 88's when ambulating, visibly SOB, respiratory consult placed, may need Oxygen. no other concerns. 11/17 - place pulm consult for any Tx change recs.? liaison with onc for FNA of parotid mass.? otherwise continue current mgmt.? aftercare planning - [facility]. 11/18 - pulm recommends continuing present care and outpt F/U. FNA done 11/18. dispo pending. 11/19 - two episodes of what appeared to be pseudoseizures: brief episodes of altered consciousness. 11/20 - no further pseudoSz. increasing prazosin to 6 mg tonight. awaiting acceptance at [facility]. 11/21 and 11/22: no changes to primary teams plan 11/23 - pathology results are non-malignant. more c/w infection of salivary gland. will F/U with [facility]. pt reports she has been accepted to long-term care facility, dispo pending. I spent minutes with the patient and/or on the patient floor today, greater than?50% of which was spent counseling/coordinating care. Reason for contiued inpatient stay Substantial Risk for: harm to self and rapid decompensation
[2021-11-23 18:00] VITALS: BP 137/64; PULSE 79; TEMP 36.9; O2SAT 94
[2021-11-23 20:37] VITALS: PULSE 85; RESP 18; TEMP 37.1; O2SAT 93
[2021-11-23] MEDS: Prazosin HCL 1 MG CAPSULE 8 MG PO (20:40)
[2021-11-23] MEDS: rOPINIRole HCL 0.5 MG TABLET PO (20:41)
[2021-11-23] MEDS: traZODone HCL 100 MG TABLET 200 MG PO (20:41)
[2021-11-23] MEDS: OLANZapine 10 MG TABLET PO (20:42)
[2021-11-23] MEDS: hydrOXYzine HCL 25 MG TABLET PO (20:44)
[2021-11-23] MEDS: Simethicone 80 MG TAB.CHEW PO ×2 (22:44→22:48)
[2021-11-23] MEDS: Bismuth Subsalicylate 262 MG TABLET 524 MG PO (22:48)
[2021-11-23 23:27] LABS: COVID-19 Test Negative (Negative); IDNOW Serial# 55D5AD1C
[2021-11-24] MEDS: Omeprazole 20 MG CAPSULE.DR PO (05:04)
[2021-11-24] MEDS: Acetaminophen 325 MG TABLET 975 MG PO ×4 (05:04→19:48)
--- NOTE | 2021-11-24 05:55 | PC.NURSE ---
Bhavana woke up at 0500 with a headache. Patient on scheduled Tylenol and could not offer her any more. This nurse gave patient her 0900 dose to help with the headache. Patient informed that next dose would not be until [id number] and patient agreed.
[2021-11-24 08:00] VITALS: BP 127/55; PULSE 78; RESP 16; TEMP 36.7; O2SAT 95
[2021-11-24] MEDS: OXcarbazepine 150 MG TABLET PO ×2 (09:03→19:50)
[2021-11-24] MEDS: Cholecalciferol (Vitamin D3) 25 MCG TABLET PO (09:03)
[2021-11-24] MEDS: Ferrous Sulfate 324 MG TABLET.DR PO (09:03)
[2021-11-24] MEDS: Lithium Carbonate 300 MG CAPSULE 600 MG PO ×2 (09:03→19:50)
[2021-11-24] MEDS: Gabapentin 100 MG CAPSULE 200 MG PO ×2 (09:03→19:49)
[2021-11-24] MEDS: Sertraline HCL 50 MG TABLET PO (09:03)
[2021-11-24] MEDS: Nicotine 21 MG PATCH.TD24 TRANSDERMA (09:20)
--- NOTE | 2021-11-24 14:07 | HO.PSYCHPN ---
Subjective Subjective Date of Service: 11/24/21 Reason For Visit: mood disorder Interim History: pt reports she has been generally approved for [facility] and now she has an application in at [facility] in [place]. she c/o severe edema, worsened since admission. MD suspicious of prazosin and pt is amenable to taper to test hypothesis. next steps for mass on left parotid area discussed; general surgery consult placed re I&D. per staff, napping, attended art group. threatening intrusive male peer. endorsing anxiety. COVID - yesterday. Mental Status Exam Mental Status Exam Narrative: adequately dressed and groomed, obese, seated in the milieu. cooperative with interview. no PMA/PMR. speech nml in rate, amount, loudness, tone, latency. thoughts linear and logical. affect full range, normo-intense, non-labile, c/w context. no SI/HI/AVH expressed. Diagnostics Vital Signs (24Hr): Vital Signs - 24 hr 11/23/21 18:00 11/23/21 20:37 11/24/21 08:00 Temperature 98.4 F 98.7 F 98.1 F Pulse Rate 79 85 78 Respiratory Rate 18 16 Blood Pressure 137/64 127/55 L Pulse Oximetry 94 93 95 BMI result Body Mass Index 54.4 Labs Results: 11/19/21 07:26 11/19/21 07:26 Labs: Laboratory Results - last 48 hr 11/23/21 22:48 COVID-19 (ENDY) Negative COVID-19 Clin Com See Note Imaging Radiology Impressions: ITS Impressions Chest CT 11/16/21 16:32 IMPRESSION: No acute abnormality CT scan of the chest. Fleischner guidelines were followed. Guidance Needle Placement Ultrasound 11/18/21 16:30 IMPRESSION: Ultrasound-guided core biopsy of left parotid mass. Salivary Gland Biopsy Ultrasound 11/18/21 16:30 IMPRESSION: Ultrasound-guided core biopsy of left parotid mass. Medications Medications Current Medications Acetaminophen (Acetaminophen 325 Mg Tablet) 975 mg PO QID TEJA Last Admin: 11/24/21 12:38 Dose: 975 mg Documented by: Al Hydroxide/Mg Hydroxide (Magnesium Hydrox/Alum Hydrox 30 Ml Oral.Susp) 30 ml PO Q6H PRN PRN Reason: Heartburn/Nausea Last Admin: 11/21/21 21:37 Dose: 30 ml Documented by: Albuterol Sulfate (Albuterol Sulfate 90 Mcg 8 Gm Inhaler) 1 puff INHALE RQ4H PRN PRN Reason: mild shortness of breath Last Admin: 11/22/21 15:24 Dose: 1 puff Documented by: Albuterol Sulfate (Albuterol Sulfate (0.042%) 1.25 Mg/3 Ml Vial.Neb) 1.25 mg INHALE RQ4H PRN PRN Reason: moderate shortness of breath Bismuth Subsalicylate (Bismuth Subsalicylate 262 Mg Tablet) 524 mg PO QID PRN PRN Reason: GI distress Last Admin: 11/23/21 22:48 Dose: 524 mg Documented by: Capsaicin (Capsaicin 0.025% Cream 60 Gm Tube) 1 appl TOPICAL QID PRN; Protocol PRN Reason: Pain, Moderate (Pain Scale 4-6 Last Admin: 11/23/21 20:45 Dose: 1 appl Documented by: Ferrous Sulfate (Ferrous Sulfate 324 Mg Tablet.) 324 mg PO DAILY [facility] Last Admin: 11/24/21 09:03 Dose: 324 mg Documented by: Fluticasone/Vilanterol (Fluticasone/Vilanterol 200/25 Blst.W.Dev) 1 puff INHALE RDAILY [facility] Last Admin: 11/24/21 11:55 Dose: Not Given Documented by: Gabapentin (Gabapentin 100 Mg Capsule) 200 mg PO BID [facility] Last Admin: 11/24/21 09:03 Dose: 200 mg Documented by: Hydroxyzine HCl (Hydroxyzine Hcl 25 Mg Tablet) 25 mg PO Q6H PRN PRN Reason: Anxiety Last Admin: 11/23/21 20:44 Dose: 25 mg Documented by: [place] Carbonate ([place] Carbonate 300 Mg Capsule) 600 mg PO BID [facility] Last Admin: 11/24/21 09:03 Dose: 600 mg Documented by: Magnesium Citrate (Magnesium Citrate 300 Ml Solution) 300 ml PO DAILY PRN PRN Reason: constipation Magnesium Hydroxide (Milk Of Magnesia 30 Ml Oral.Susp) 30 ml PO DAILY PRN PRN Reason: Constipation Nicotine (Nicotine 21 Mg Patch.Td24) 21 mg TRANSDERMA DAILY [facility] Last Admin: 11/24/21 09:20 Dose: 21 mg Documented by: Olanzapine (Olanzapine 10 Mg Tablet) 10 mg PO BEDTIME [facility] Last Admin: 11/23/21 20:42 Dose: 10 mg Documented by: Omeprazole (Omeprazole 20 Mg Capsule.Dr) 20 mg PO DAILY@0630 [facility] Last Admin: 11/24/21 05:04 Dose: 20 mg Documented by: Oxcarbazepine (Oxcarbazepine 150 Mg Tablet) 150 mg PO BID [facility] Last Admin: 11/24/21 09:03 Dose: 150 mg Documented by: Prazosin HCl (Prazosin Hcl 1 Mg Capsule) 4 mg PO BEDTIME [facility]; Protocol Quetiapine Fumarate (Quetiapine Fumarate 25 Mg Tablet) 25 mg PO BID PRN PRN Reason: anxiety Last Admin: 11/23/21 20:44 Dose: 25 mg Documented by: Ropinirole HCl (Ropinirole Hcl 0.5 Mg Tablet) 0.5 mg PO BEDTIME [facility] Last Admin: 11/23/21 20:41 Dose: 0.5 mg Documented by: Sertraline HCl (Sertraline Hcl 50 Mg Tablet) 50 mg PO DAILY [facility] Last Admin: 11/24/21 09:03 Dose: 50 mg Documented by: Simethicone (Simethicone 80 Mg Tab.Chew) 80 mg PO QIDWMHS PRN PRN Reason: gas relief Last Admin: 11/23/21 22:48 Dose: 80 mg Documented by: Trazodone HCl (Trazodone Hcl 100 Mg Tablet) 200 mg PO BEDTIME [facility] Last Admin: 11/23/21 20:41 Dose: 200 mg Documented by: Valacyclovir HCl (Valacycyclovir Hcl 1,000 Mg Tablet) 1,000 mg PO BID [facility] Last Admin: 11/24/21 09:03 Dose: 1,000 mg Documented by: Vitamin D (Cholecalciferol (Vitamin D3) 25 Mcg Tablet) 25 mcg PO DAILY [facility] Last Admin: 11/24/21 09:03 Dose: 25 mcg Documented by: Allergies Allergies Allergy/AdvReac Type Severity Reaction Status Date / Time aspirin [Aspirin] Allergy Severe HIVES,THROAT Verified 10/13/21 04:51 SWELLS bee pollen [BEE STINGS] Allergy Severe ANAPHYLAXIS Verified 10/13/21 04:51 diphenhydramine Allergy Severe hives, Verified 10/13/21 04:51 [From BENADRYL ALLERGY] throat swells Penicillins [PCN] Allergy Severe HIVES Verified 10/13/21 04:51 THROAT SWELLS Sulfa (Sulfonamide Allergy Intermediate HIVES Verified 10/13/21 04:51 Antibiotics) [SULFA (SULFONAMIDE ANTIBIOTICS)] tramadol [TRAMADOL] Allergy Intermediate ITCHING Verified 10/13/21 04:51 latex [LATEX] Allergy Unknown UNKNOWN Verified 10/13/21 04:51 penicillin G Allergy Unknown Unknown Verified 10/13/21 04:51 levofloxacin [From Levaquin] Allergy Hives Verified 10/13/21 04:51 bee stings Allergy Unknown Unknown Uncoded 10/13/21 04:51 DairyCare Allergy Unknown Unknown Uncoded 10/13/21 04:51 sulfa drugs Allergy Unknown Unknown Uncoded 10/13/21 04:51 Assessment & Plan Assessment & Plan (1) Borderline personality disorder: Status: Acute Code(s): F60.3 - Borderline personality disorder Assessment and Plan: brief inpatient stay, if possible (2) PTSD (post-traumatic stress disorder): Status: Acute Code(s): F43.10 - Post-traumatic stress disorder, unspecified Assessment and Plan: continue current regimen aside from increasing trazodone to 200 mg QHS as of 11/12, increasing prazosin to 5 mg QHS as of 11/12, increasing prazosin to 8 mg QHS as of 11/23, and increased zyprexa to 10 mg QHS as of 11/13. prazosin taper initiated 11/24 due to pt c/o progressively worsening edema since admission. (3) Cocaine use disorder: Status: Acute Code(s): F14.10 - Cocaine abuse, uncomplicated Assessment and Plan: abstain (4) Abnormal EEG: Status: Acute Code(s): R94.01 - Abnormal electroencephalogram [EEG] Assessment and Plan: started trileptal 150 BID 11/12 as per neuro rec. (5) Asthma-COPD overlap syndrome: Status: Acute Code(s): J44.9 - Chronic obstructive pulmonary disease, unspecified Assessment and Plan: Impression: 51-year-old lady with underlying obesity, FABIOLA, asthma/COPD overlap syndrome hospitalized with psychiatric diagnosis noted to have intermittent hypoxic episodes. Currently on Breo and nocturnal CPAP. At this time her asthma/COPD symptoms appears to be well controlled on current regimen of Breo and albuterol MDI. Intermittent hypoxic episodes appears to have resolved at this time and may have been related to over-sedation from psychiatric medications. At this time there is no ongoing asthma or COPD exacerbation. Recommendations: Continue with current regimen of Breo and albuterol MDI. Continue with nocturnal CPAP. Patient would benefit from outpatient pulmonary follow-up. (6) FABIOLA (obstructive sleep apnea): Status: Acute Code(s): G47.33 - Obstructive sleep apnea (adult) (pediatric) Assessment and Plan: CPAP at [facility] (7) Parotid mass: Status: Acute Code(s): K11.8 - Other diseases of salivary glands Assessment and Plan: FNA 11/18. no cancer, appears to be infection of salivary gland. surgery consulted re I&D. (8) Carotid stenosis: Status: Acute Code(s): I65.29 - Occlusion and stenosis of unspecified carotid artery Assessment and Plan: outpt F/U Assessment and Plan: continue outpt meds aside from as noted above. plan to dispo to [facility] respite bed 11/14/2021 Continue current regimen and plans with no changes today 11/15/2021 Continue current plans and regimen.? No changes were made today 11/16- Pt desaturating in 88's when ambulating, visibly SOB, respiratory consult placed, may need Oxygen. no other concerns. 11/17 - place pulm consult for any Tx change recs.? liaison with onc for FNA of parotid mass.? otherwise continue current mgmt.? aftercare planning - [facility]. 11/18 - pulm recommends continuing present care and outpt F/U. FNA done 11/18. dispo pending. 11/19 - two episodes of what appeared to be pseudoseizures: brief episodes of altered consciousness. 11/20 - no further pseudoSz. increasing prazosin to 6 mg tonight. awaiting acceptance at [facility]. 11/21 and 11/22: no changes to primary teams plan 11/23 - pathology results are non-malignant. more c/w infection of salivary gland. will F/U with [facility]. pt reports she has been accepted to long-term care facility, dispo pending. 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 application in at [facility]. prazosin taper initiated due to edema. I spent minutes with the patient and/or on the patient floor today, greater than?50% of which was spent counseling/coordinating care. Reason for contiued inpatient stay Substantial Risk for: harm to self, inability to function and rapid decompensation
[2021-11-24] MEDS: Albuterol Sulfate 90 MCG 8 GM INHALER 1 PUFF INHALE (16:04)
--- NOTE | 2021-11-24 16:18 | PC.NURSE ---
At 1540 this administrative underwriter was alerted that patient was experiencing SOB. Rescue inhaler was utilized with good effect. Vital signs were taken - T 98.1, P 86, O2 91%, BP 133/69. Patient was comfortable and having coffee and a cookie when she began choking on a piece of the cookie at 1610. Heimlich was performed with good effect. Will continue to monitor patient.
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
[2021-11-24 19:14] VITALS: BP 128/65; PULSE 83; RESP 16; TEMP 36.7; O2SAT 95
[2021-11-24] MEDS: Prazosin HCL 1 MG CAPSULE 4 MG PO (19:49)
[2021-11-24] MEDS: OLANZapine 10 MG TABLET PO (19:49)
[2021-11-24] MEDS: rOPINIRole HCL 0.5 MG TABLET PO (19:49)
[2021-11-24] MEDS: traZODone HCL 100 MG TABLET 200 MG PO (19:50)
[2021-11-25] MEDS: Bismuth Subsalicylate 262 MG TABLET 524 MG PO (02:41)
[2021-11-25] MEDS: Simethicone 80 MG TAB.CHEW PO (02:42)
[2021-11-25] MEDS: Nicotine 21 MG PATCH.TD24 TRANSDERMA (08:12)
[2021-11-25] MEDS: Ferrous Sulfate 324 MG TABLET.DR PO (08:13)
[2021-11-25] MEDS: Sertraline HCL 50 MG TABLET PO (08:13)
[2021-11-25] MEDS: OXcarbazepine 150 MG TABLET PO ×2 (08:13→20:19)
[2021-11-25] MEDS: Gabapentin 100 MG CAPSULE 200 MG PO ×2 (08:13→20:18)
[2021-11-25] MEDS: Lithium Carbonate 300 MG CAPSULE 600 MG PO ×2 (08:13→20:18)
[2021-11-25] MEDS: Acetaminophen 325 MG TABLET 975 MG PO ×3 (08:13→20:19)
[2021-11-25] MEDS: Omeprazole 20 MG CAPSULE.DR PO (08:13)
[2021-11-25] MEDS: Cholecalciferol (Vitamin D3) 25 MCG TABLET PO (08:14)
[2021-11-25 08:17] VITALS: BP 128/62; PULSE 85; RESP 17; TEMP 36.9; O2SAT 91
[2021-11-25] MEDS: Fluticasone/Vilanterol 200/25 BLST.W.DEV 1 PUFF INHALE (09:20)
[2021-11-25 09:42] VITALS: BP 107/63; PULSE 85; RESP 22; O2SAT 93
[2021-11-25] MEDS: hydrOXYzine HCL 25 MG TABLET PO ×2 (10:18→20:18)
--- NOTE | 2021-11-25 13:20 | HO.PSYCHPN ---
Subjective Subjective Date of Service: 11/25/21 Reason For Visit: mood disorder Interim History: pt reports she is doing reasonably well, notes there is a lot of noise and kerfuffle on the unit today which is throwing everybody off. just awaiting word on [employer]. states her edema has improved slightly and says she had moderately disrupted sleep last night. agreeable to continue prazosin taper. also informed a cardiac diet has been ordered for her. per staff, no SI/HI. had a choking episode on a cookie last night and heimlich manoeuvre was executed on her behalf. constipated. Mental Status Exam Mental Status Exam Narrative: adequately dressed and groomed, obese, seated in the milieu. cooperative with interview. no PMA/PMR. speech nml in rate, amount, loudness, tone, latency. thoughts linear and logical. affect full range, normo-intense, non-labile, c/w context. no SI/HI/AVH expressed. Diagnostics Vital Signs (24Hr): Vital Signs - 24 hr 11/24/21 19:14 11/25/21 08:17 11/25/21 09:42 Temperature 98.1 F 98.5 F Pulse Rate 83 85 85 Respiratory Rate 16 17 22 H Blood Pressure 128/65 128/62 107/63 Pulse Oximetry 95 91 L 93 BMI result Body Mass Index 54.4 Labs Results: 11/19/21 07:26 11/19/21 07:26 Labs: Laboratory Results - last 48 hr 11/23/21 22:48 COVID-19 (ENDY) Negative COVID-19 Clin Com See Note Imaging Radiology Impressions: ITS Impressions Chest CT 11/16/21 16:32 IMPRESSION: No acute abnormality CT scan of the chest. Fleischner guidelines were followed. Guidance Needle Placement Ultrasound 11/18/21 16:30 IMPRESSION: Ultrasound-guided core biopsy of left parotid mass. Salivary Gland Biopsy Ultrasound 11/18/21 16:30 IMPRESSION: Ultrasound-guided core biopsy of left parotid mass. Medications Medications Current Medications Acetaminophen (Acetaminophen 325 Mg Tablet) 975 mg PO QID TEJA Last Admin: 11/25/21 13:06 Dose: 975 mg Documented by: Al Hydroxide/Mg Hydroxide (Magnesium Hydrox/Alum Hydrox 30 Ml Oral.Susp) 30 ml PO Q6H PRN PRN Reason: Heartburn/Nausea Last Admin: 11/21/21 21:37 Dose: 30 ml Documented by: Albuterol Sulfate (Albuterol Sulfate 90 Mcg 8 Gm Inhaler) 1 puff INHALE RQ4H PRN PRN Reason: mild shortness of breath Last Admin: 11/24/21 16:04 Dose: 1 puff Documented by: Albuterol Sulfate (Albuterol Sulfate (0.042%) 1.25 Mg/3 Ml Vial.Neb) 1.25 mg INHALE RQ4H PRN PRN Reason: moderate shortness of breath Bismuth Subsalicylate (Bismuth Subsalicylate 262 Mg Tablet) 524 mg PO QID PRN PRN Reason: GI distress Last Admin: 11/25/21 02:41 Dose: 524 mg Documented by: Capsaicin (Capsaicin 0.025% Cream 60 Gm Tube) 1 appl TOPICAL QID PRN; Protocol PRN Reason: Pain, Moderate (Pain Scale 4-6 Last Admin: 11/23/21 20:45 Dose: 1 appl Documented by: Ferrous Sulfate (Ferrous Sulfate 324 Mg Tablet.Dr) 324 mg PO DAILY [facility] Last Admin: 11/25/21 08:13 Dose: 324 mg Documented by: Fluticasone/Vilanterol (Fluticasone/Vilanterol 200/25 Blst.W.Dev) 1 puff INHALE RDAILY [facility] Last Admin: 11/25/21 09:20 Dose: 1 puff Documented by: Gabapentin (Gabapentin 100 Mg Capsule) 200 mg PO BID [facility] Last Admin: 11/25/21 08:13 Dose: 200 mg Documented by: Hydroxyzine HCl (Hydroxyzine Hcl 25 Mg Tablet) 25 mg PO Q6H PRN PRN Reason: Anxiety Last Admin: 11/25/21 10:18 Dose: 25 mg Documented by: Carmen Carbonate (Carmen Carbonate 300 Mg Capsule) 600 mg PO BID [facility] Last Admin: 11/25/21 08:13 Dose: 600 mg Documented by: Magnesium Citrate (Magnesium Citrate 300 Ml Solution) 300 ml PO DAILY PRN PRN Reason: constipation Magnesium Hydroxide (Milk Of Magnesia 30 Ml Oral.Susp) 30 ml PO DAILY PRN PRN Reason: Constipation Nicotine (Nicotine 21 Mg Patch.Td24) 21 mg TRANSDERMA DAILY [facility] Last Admin: 11/25/21 08:12 Dose: 21 mg Documented by: Olanzapine (Olanzapine 10 Mg Tablet) 10 mg PO BEDTIME [facility] Last Admin: 11/24/21 19:49 Dose: 10 mg Documented by: Omeprazole (Omeprazole 20 Mg Capsule.Dr) 20 mg PO DAILY@0630 [facility] Last Admin: 11/25/21 08:13 Dose: 20 mg Documented by: Oxcarbazepine (Oxcarbazepine 150 Mg Tablet) 150 mg PO BID [facility] Last Admin: 11/25/21 08:13 Dose: 150 mg Documented by: Prazosin HCl (Prazosin Hcl 1 Mg Capsule) 2 mg PO BEDTIME [facility]; Protocol Quetiapine Fumarate (Quetiapine Fumarate 25 Mg Tablet) 25 mg PO BID PRN PRN Reason: anxiety Last Admin: 11/23/21 20:44 Dose: 25 mg Documented by: Ropinirole HCl (Ropinirole Hcl 0.5 Mg Tablet) 0.5 mg PO BEDTIME [facility] Last Admin: 11/24/21 19:49 Dose: 0.5 mg Documented by: Sertraline HCl (Sertraline Hcl 50 Mg Tablet) 50 mg PO DAILY [facility] Last Admin: 11/25/21 08:13 Dose: 50 mg Documented by: Simethicone (Simethicone 80 Mg Tab.Chew) 80 mg PO QIDWMHS PRN PRN Reason: gas relief Last Admin: 11/25/21 02:42 Dose: 80 mg Documented by: Trazodone HCl (Trazodone Hcl 100 Mg Tablet) 200 mg PO BEDTIME [facility] Last Admin: 11/24/21 19:50 Dose: 200 mg Documented by: Valacyclovir HCl (Valacycyclovir Hcl 1,000 Mg Tablet) 1,000 mg PO BID [facility] Last Admin: 11/25/21 08:14 Dose: 1,000 mg Documented by: Vitamin D (Cholecalciferol (Vitamin D3) 25 Mcg Tablet) 25 mcg PO DAILY [facility] Last Admin: 11/25/21 08:14 Dose: 25 mcg Documented by: Allergies Allergies Allergy/AdvReac Type Severity Reaction Status Date / Time aspirin [Aspirin] Allergy Severe HIVES,THROAT Verified 10/13/21 04:51 SWELLS bee pollen [BEE STINGS] Allergy Severe ANAPHYLAXIS Verified 10/13/21 04:51 diphenhydramine Allergy Severe hives, Verified 10/13/21 04:51 [From BENADRYL ALLERGY] throat swells Penicillins [PCN] Allergy Severe HIVES Verified 10/13/21 04:51 THROAT SWELLS Sulfa (Sulfonamide Allergy Intermediate HIVES Verified 10/13/21 04:51 Antibiotics) [SULFA (SULFONAMIDE ANTIBIOTICS)] tramadol [TRAMADOL] Allergy Intermediate ITCHING Verified 10/13/21 04:51 latex [LATEX] Allergy Unknown UNKNOWN Verified 10/13/21 04:51 penicillin G Allergy Unknown Unknown Verified 10/13/21 04:51 levofloxacin [From Levaquin] Allergy Hives Verified 10/13/21 04:51 bee stings Allergy Unknown Unknown Uncoded 10/13/21 04:51 DairyCare Allergy Unknown Unknown Uncoded 10/13/21 04:51 sulfa drugs Allergy Unknown Unknown Uncoded 10/13/21 04:51 Assessment & Plan Assessment & Plan (1) PTSD (post-traumatic stress disorder): Status: Acute Code(s): F43.10 - Post-traumatic stress disorder, unspecified Assessment and Plan: continue current regimen aside from increasing trazodone to 200 mg QHS as of 11/12, increasing prazosin to 5 mg QHS as of 11/12, increasing prazosin to 8 mg QHS as of 11/23, and increased zyprexa to 10 mg QHS as of 11/13.? prazosin taper initiated 11/24 due to pt c/o progressively worsening edema since admission. (2) Borderline personality disorder: Status: Acute Code(s): F60.3 - Borderline personality disorder Assessment and Plan: brief stay if possible (3) Mass of parotid gland: Status: Acute Code(s): K11.8 - Other diseases of salivary glands Assessment and Plan: per surgery consult: She has a left parotid mass as described above.? Her CAT scan shows the cystic combination of cystic and solid components.? She already had a biopsy by ultrasound done last November 18, showing this to be parotitis. I will review the imaging studies as well as the path report with the radiologist.? I will see if she needs any further diagnostic workup at this time.? In view of the heterogenous appearance on imaging, we may need to continue to rule out for a neoplastic process down the line.? She will therefore need a head and neck surgeon for this. Again, I will review her imaging studies with the radiologist and we will follow her in the hospital and decide on next step in her care with regards to the parotid mass. (4) FABIOLA (obstructive sleep apnea): Status: Acute Code(s): G47.33 - Obstructive sleep apnea (adult) (pediatric) Assessment and Plan: per pulm consult: 51-year-old lady with underlying obesity, FABIOLA, asthma/COPD overlap syndrome hospitalized with psychiatric diagnosis noted to have intermittent hypoxic episodes.? Currently on Breo and nocturnal CPAP.? At this time her asthma/COPD symptoms appears to be well controlled on current regimen of Breo and albuterol MDI.? Intermittent hypoxic episodes appears to have resolved at this time and may have been related to over-sedation from psychiatric medications.? At this time there is no ongoing asthma or COPD exacerbation. Recommendations:? Continue with current regimen of Breo and albuterol MDI.? Continue with nocturnal CPAP.? Patient would benefit from outpatient pulmonary follow-up. (5) Carotid stenosis: Status: Acute Code(s): I65.29 - Occlusion and stenosis of unspecified carotid artery Assessment and Plan: outpt F/U (6) Abnormal EEG: Status: Acute Code(s): R94.01 - Abnormal electroencephalogram [EEG] Assessment and Plan: started trileptal 150 BID per neuro rec (7) Cocaine use disorder: Status: Acute Code(s): F14.10 - Cocaine abuse, uncomplicated Assessment and Plan: abstain Plan continue outpt meds aside from as noted above. plan to dispo to [facility] respite bed 11/14/2021 Continue current regimen and plans with no changes today 11/15/2021 Continue current plans and regimen.? No changes were made today 11/16- Pt desaturating in 88's when ambulating, visibly SOB, respiratory consult placed, may need Oxygen. no other concerns. 11/17 - place pulm consult for any Tx change recs.? liaison with onc for FNA of parotid mass.? otherwise continue current mgmt.? aftercare planning - [facility]. 11/18 - pulm recommends continuing present care and outpt F/U.? FNA done 11/18.? dispo pending. 11/19 - two episodes of what appeared to be pseudoseizures: brief episodes of altered consciousness. 11/20 - no further pseudoSz.? increasing prazosin to 6 mg tonight.? awaiting acceptance at [facility]. 11/21 and 11/22: no changes to primary? teams plan 11/23 - pathology results are non-malignant.? more c/w infection of salivary gland.? will F/U with [facility].? pt reports she has been accepted to long-term care facility, dispo pending. 11/24 - surgery consult placed for infected salivary gland abscess.? application in at high [facility].? prazosin taper initiated due to edema. 11/25 - surgery to review radiology and consult with head and neck surgeon, perhaps, re mgmt. prazosin further tapered, edema decrease slightly per pt report. I spent minutes with the patient and/or on the patient floor today, greater than?50% of which was spent counseling/coordinating care. Reason for contiued inpatient stay Substantial Risk for: harm to self, inability to function and rapid decompensation
[2021-11-25 20:09] VITALS: BP 140/72; PULSE 86; TEMP 36.7; O2SAT 92
[2021-11-25] MEDS: rOPINIRole HCL 0.5 MG TABLET PO (20:18)
[2021-11-25] MEDS: QUEtiapine Fumarate 25 MG TABLET PO (20:18)
[2021-11-25] MEDS: Prazosin HCL 1 MG CAPSULE 2 MG PO (20:18)
[2021-11-25] MEDS: OLANZapine 10 MG TABLET PO (20:18)
[2021-11-25] MEDS: Capsaicin 0.025% Cream 60 GM TUBE 1 APPL TOPICAL (20:19)
[2021-11-25] MEDS: traZODone HCL 100 MG TABLET 200 MG PO (20:19)
[2021-11-26] MEDS: Omeprazole 20 MG CAPSULE.DR PO (06:22)
[2021-11-26 07:00] VITALS: BMI 55.0
[2021-11-26] MEDS: Acetaminophen 325 MG TABLET 975 MG PO ×3 (08:20→21:04)
[2021-11-26] MEDS: Gabapentin 100 MG CAPSULE 200 MG PO ×2 (08:22→21:04)
[2021-11-26] MEDS: OXcarbazepine 150 MG TABLET PO ×2 (08:22→21:03)
[2021-11-26] MEDS: Cholecalciferol (Vitamin D3) 25 MCG TABLET PO (08:23)
[2021-11-26] MEDS: Lithium Carbonate 300 MG CAPSULE 600 MG PO ×2 (08:24→21:03)
[2021-11-26] MEDS: Ferrous Sulfate 324 MG TABLET.DR PO (08:24)
[2021-11-26] MEDS: Sertraline HCL 50 MG TABLET PO (08:25)
[2021-11-26] MEDS: Nicotine 21 MG PATCH.TD24 TRANSDERMA (08:25)
[2021-11-26] MEDS: Capsaicin 0.025% Cream 60 GM TUBE 1 APPL TOPICAL ×2 (08:29→21:04)
[2021-11-26] MEDS: Fluticasone/Vilanterol 200/25 BLST.W.DEV 1 PUFF INHALE (08:32)
[2021-11-26 08:49] VITALS: BP 131/61; PULSE 70; TEMP 37; O2SAT 93
--- NOTE | 2021-11-26 14:04 | P.PNPSI_ITS ---
Subjective Subjective Date of Service: 11/26/21 Reason For Visit: mood disorder Interim History: pt reports her edema is substantially improved, agrees to DC prazosin as of tonight. asks about something to replace it with, agrees to trial of clonidine. R/B discussed, including sedation, hypotension, decreased anxiety, improved sleep, fewer nightmares. awaiting word from SNFs. no other questions or complaints. per staff, agitated with peer yesterday morning, directed jeb at male staff briefly. slept well. per Dr. Lopes note, plan to F/U with head and neck surgeon after discharge. Mental Status Exam Mental Status Exam Narrative: adequately dressed and groomed, obese, seated in the milieu. cooperative with interview. no PMA/PMR. speech nml in rate, amount, loudness, tone, latency. thoughts linear and logical. affect full range, normo-intense, non-labile, c/w context. no SI/HI/AVH expressed. Diagnostics Vital Signs (24Hr): Vital Signs - 24 hr 11/25/21 20:09 11/26/21 08:49 Temperature 98.0 F 98.6 F Pulse Rate 86 70 Blood Pressure 140/72 H 131/61 Pulse Oximetry 92 93 BMI result Verdana 4 Body Mass Index Verdana 4 54.4 Verdana 4 Verdana 4 Labs Results: 11/19/21 07:26 11/19/21 07:26 Imaging Radiology Impressions: ITS Impressions Chest CT 11/16/21 16:32 IMPRESSION: No acute abnormality CT scan of the chest. Fleischner guidelines were followed. Guidance Needle Placement Ultrasound 11/18/21 16:30 IMPRESSION: Ultrasound-guided core biopsy of left parotid mass. Salivary Gland Biopsy Ultrasound 11/18/21 16:30 IMPRESSION: Ultrasound-guided core biopsy of left parotid mass. Medications Medications Current Medications Acetaminophen (Acetaminophen 325 Mg Tablet) 975 mg PO TID TEJA Al Hydroxide/Mg Hydroxide (Magnesium Hydrox/Alum Hydrox 30 Ml Oral.Susp) 30 ml PO Q6H PRN PRN Reason: Heartburn/Nausea Last Admin: 11/21/21 21:37 Dose: 30 ml Documented by: Albuterol Sulfate (Albuterol Sulfate 90 Mcg 8 Gm Inhaler) 1 puff INHALE RQ4H PRN PRN Reason: mild shortness of breath Last Admin: 11/24/21 16:04 Dose: 1 puff Documented by: Albuterol Sulfate (Albuterol Sulfate (0.042%) 1.25 Mg/3 Ml Vial.Neb) 1.25 mg INHALE RQ4H PRN PRN Reason: moderate shortness of breath Bismuth Subsalicylate (Bismuth Subsalicylate 262 Mg Tablet) 524 mg PO QID PRN PRN Reason: GI distress Last Admin: 11/25/21 02:41 Dose: 524 mg Documented by: Capsaicin (Capsaicin 0.025% Cream 60 Gm Tube) 1 appl TOPICAL QID PRN; Protocol PRN Reason: Pain, Moderate (Pain Scale 4-6 Last Admin: 11/26/21 08:29 Dose: 1 appl Documented by: Clonidine HCl (Clonidine Hcl 0.1 Mg Tablet) 0.1 mg PO BEDTIME [facility]; Protocol Ferrous Sulfate (Ferrous Sulfate 324 Mg Tablet.) 324 mg PO DAILY [facility] Last Admin: 11/26/21 08:24 Dose: 324 mg Documented by: Fluticasone/Vilanterol (Fluticasone/Vilanterol 200/25 Blst.W.Dev) 1 puff INHALE RDAILY [facility] Last Admin: 11/26/21 08:32 Dose: 1 puff Documented by: Gabapentin (Gabapentin 100 Mg Capsule) 200 mg PO BID [facility] Last Admin: 11/26/21 08:22 Dose: 200 mg Documented by: Hydroxyzine HCl (Hydroxyzine Hcl 25 Mg Tablet) 25 mg PO Q6H PRN PRN Reason: Anxiety Last Admin: 11/25/21 20:18 Dose: 25 mg Documented by: [place]son Carbonate (Hobson Carbonate 300 Mg Capsule) 600 mg PO BID [facility] Last Admin: 11/26/21 08:24 Dose: 600 mg Documented by: Magnesium Citrate (Magnesium Citrate 300 Ml Solution) 300 ml PO DAILY PRN PRN Reason: constipation Magnesium Hydroxide (Milk Of Magnesia 30 Ml Oral.Susp) 30 ml PO DAILY PRN PRN Reason: Constipation Multi-Ingred Cream/Lotion/Oil/Oint (Mineral Oil/Petrolatum,White 106 Gm Tube) 1 appl TOPICAL BID [facility]; Protocol Nicotine (Nicotine 21 Mg Patch.Td24) 21 mg TRANSDERMA DAILY [facility] Last Admin: 11/26/21 08:25 Dose: 21 mg Documented by: Olanzapine (Olanzapine 10 Mg Tablet) 10 mg PO BEDTIME [facility] Last Admin: 11/25/21 20:18 Dose: 10 mg Documented by: Omeprazole (Omeprazole 20 Mg Capsule.Dr) 20 mg PO DAILY@0630 [facility] Last Admin: 11/26/21 06:22 Dose: 20 mg Documented by: Oxcarbazepine (Oxcarbazepine 150 Mg Tablet) 150 mg PO BID [facility] Last Admin: 11/26/21 08:22 Dose: 150 mg Documented by: Quetiapine Fumarate (Quetiapine Fumarate 25 Mg Tablet) 25 mg PO BID PRN PRN Reason: anxiety Last Admin: 11/25/21 20:18 Dose: 25 mg Documented by: Ropinirole HCl (Ropinirole Hcl 0.5 Mg Tablet) 0.5 mg PO BEDTIME [facility] Last Admin: 11/25/21 20:18 Dose: 0.5 mg Documented by: Sertraline HCl (Sertraline Hcl 50 Mg Tablet) 50 mg PO DAILY [facility] Last Admin: 11/26/21 08:25 Dose: 50 mg Documented by: Simethicone (Simethicone 80 Mg Tab.Chew) 80 mg PO QIDWMHS PRN PRN Reason: gas relief Last Admin: 11/25/21 02:42 Dose: 80 mg Documented by: Trazodone HCl (Trazodone Hcl 100 Mg Tablet) 200 mg PO BEDTIME [facility] Last Admin: 11/25/21 20:19 Dose: 200 mg Documented by: Valacyclovir HCl (Valacycyclovir Hcl 1,000 Mg Tablet) 1,000 mg PO BID [facility] Last Admin: 11/26/21 08:23 Dose: 1,000 mg Documented by: Vitamin D (Cholecalciferol (Vitamin D3) 25 Mcg Tablet) 25 mcg PO DAILY [facility] Last Admin: 11/26/21 08:23 Dose: 25 mcg Documented by: Allergies Allergies Allergy/AdvReac Type Severity Reaction Status Date / Time aspirin [Aspirin] Allergy Severe HIVES,THROAT Verified 10/13/21 04:51 SWELLS bee pollen [BEE Allergy Severe ANAPHYLAXIS Verified 10/13/21 04:51 STINGS] diphenhydramine Allergy Severe hives, Verified 10/13/21 04:51 [From BENADRYL throat ALLERGY] swells Penicillins [PCN] Allergy Severe HIVES Verified 10/13/21 04:51 THROAT SWELLS Sulfa Allergy Intermediate HIVES Verified 10/13/21 04:51 (Sulfonamide Antibiotics) [SULFA (SULFONAMIDE ANTIBIOTICS)] tramadol Allergy Intermediate ITCHING Verified 10/13/21 04:51 [TRAMADOL] latex [LATEX] Allergy Unknown UNKNOWN Verified 10/13/21 04:51 penicillin G Allergy Unknown Unknown Verified 10/13/21 04:51 levofloxacin Allergy Hives Verified 10/13/21 04:51 [From Levaquin] bee stings Allergy Unknown Unknown Uncoded 10/13/21 04:51 DairyCare Allergy Unknown Unknown Uncoded 10/13/21 04:51 sulfa drugs Allergy Unknown Unknown Uncoded 10/13/21 04:51 Assessment & Plan Assessment & Plan (1) PTSD (post-traumatic stress disorder): Status: Acute Code(s): F43.10 - Post-traumatic stress disorder, unspecified Assessment and Plan: continue current regimen aside from increasing trazodone to 200 mg QHS as of 11/12, increasing prazosin to 5 mg QHS as of 11/12, increasing prazosin to 8 mg QHS as of 11/23, and increased zyprexa to 10 mg QHS as of 11/13.? prazosin taper initiated 11/24 due to pt c/o progressively worsening edema since admission. edema improving with prazosin taper, prazosin DCed 11/26. clonidine 0.1 mg QHS started 11/26 to replace the prazosin. (2) Borderline personality disorder: Status: Acute Code(s): F60.3 - Borderline personality disorder Assessment and Plan: brief stay if possible (3) Mass of parotid gland: Status: Acute Code(s): K11.8 - Other diseases of salivary glands Assessment and Plan: per surgery consult: She has a left parotid mass as described above.? Her CAT scan shows the cystic combination of cystic and solid components.? She already had a biopsy by ultrasound done last November 18, showing this to be parotitis. I will review the imaging studies as well as the path report with the radiologist.? I will see if she needs any further diagnostic workup at this time.? In view of the heterogenous appearance on imaging, we may need to continue to rule out for a neoplastic process down the line.? She will therefore need a head and neck surgeon for this. Again, I will review her imaging studies with the radiologist and we will follow her in the hospital and decide on next step in her care with regards to the par otid mass. (4) FABIOLA (obstructive sleep apnea): Status: Acute Code(s): G47.33 - Obstructive sleep apnea (adult) (pediatric) Assessment and Plan: per pulm consult: 51-year-old lady with underlying obesity, FABIOLA, asthma/COPD overlap syndrome hospitalized with psychiatric diagnosis noted to have intermittent hypoxic episodes.? Currently on Breo and nocturnal CPAP.? At this time her asthma/COPD symptoms appears to be well controlled on current regimen of Breo and albuterol MDI.? Intermittent hypoxic episodes appears to have resolved at this time and may have been related to over-sedation from psychiatric medications.? At this time there is no ongoing asthma or COPD exacerbation. Recommendations:? Continue with current regimen of Breo and albuterol MDI.? Continue with nocturnal CPAP.? Patient would benefit from outpatient pulmonary follow-up. (5) Carotid stenosis: Status: Acute Code(s): I65.29 - Occlusion and stenosis of unspecified carotid artery Assessment and Plan: outpt F/U (6) Abnormal EEG: Status: Acute Code(s): R94.01 - Abnormal electroencephalogram [EEG] Assessment and Plan: started trileptal 150 BID per neuro rec (7) Cocaine use disorder: Status: Acute Code(s): F14.10 - Cocaine abuse, uncomplicated Assessment and Plan: abstain Plan continue outpt meds aside from as noted above. plan to dispo to [facility] respite bed 11/14/2021 Continue current regimen and plans with no changes today 11/15/2021 Continue current plans and regimen.? No changes were made today 11/16- Pt desaturating in 88's when ambulating, visibly SOB, respiratory consult placed, may need Oxygen. no other concerns. 11/17 - place pulm consult for any Tx change recs.? liaison with onc for FNA of parotid mass.? otherwise continue current mgmt.? aftercare planning - [facility]. 11/18 - pulm recommends continuing present care and outpt F/U.? FNA done 11/18.? dispo pending. 11/19 - two episodes of what appeared to be pseudoseizures: brief episodes of altered consciousness. 11/20 - no further pseudoSz.? increasing prazosin to 6 mg tonight.? awaiting acceptance at [facility]. 11/21 and 11/22: no changes to primary? teams plan 11/23 - pathology results are non-malignant.? more c/w infection of salivary gland.? will F/U with [facility].? pt reports she has been accepted to long-term care facility, dispo pending. 11/24 - surgery consult placed for infected salivary gland abscess.? application in at high view.? prazosin taper initiated due to edema. 11/25 - surgery to review radiology and consult with head and neck surgeon, perhaps, re mgmt. prazosin further tapered, edema decrease slightly per pt report. 11/26 - DC prazosin, start clonidine. to F/U with head and neck surgeon after discharge re parotid mass. I spent minutes with the patient and/or on the patient floor today, greater than?50% of which was spent counseling/coordinating care. Reason for contiued inpatient stay Substantial Risk for: inability to function and rapid decompensation
[2021-11-26] MEDS: Mineral Oil/Petrolatum,White 106 GM Tube 1 APPL TOPICAL ×2 (16:32→21:04)
[2021-11-26] MEDS: cloNIDine HCL 0.1 MG TABLET PO (21:03)
[2021-11-26] MEDS: QUEtiapine Fumarate 25 MG TABLET PO (21:03)
[2021-11-26] MEDS: rOPINIRole HCL 0.5 MG TABLET PO (21:03)
[2021-11-26] MEDS: OLANZapine 10 MG TABLET PO (21:03)
[2021-11-26] MEDS: hydrOXYzine HCL 25 MG TABLET PO (21:03)
[2021-11-26] MEDS: traZODone HCL 100 MG TABLET 200 MG PO (21:03)
[2021-11-26] MEDS: Albuterol Sulfate 90 MCG 8 GM INHALER 1 PUFF INHALE (21:06)
[2021-11-26 21:07] VITALS: BP 140/73; PULSE 76; TEMP 36.4; O2SAT 90
[2021-11-26 21:13] VITALS: PULSE 81; O2SAT 93
[2021-11-27] MEDS: Omeprazole 20 MG CAPSULE.DR PO (06:54)
[2021-11-27] MEDS: Capsaicin 0.025% Cream 60 GM TUBE 1 APPL TOPICAL (08:18)
[2021-11-27 08:23] VITALS: BP 123/63; PULSE 73; RESP 16; TEMP 36.7; O2SAT 94
[2021-11-27] MEDS: Nicotine 21 MG PATCH.TD24 TRANSDERMA (08:27)
[2021-11-27] MEDS: Acetaminophen 325 MG TABLET 975 MG PO ×3 (08:29→21:05)
[2021-11-27] MEDS: Sertraline HCL 50 MG TABLET PO (08:30)
[2021-11-27] MEDS: Gabapentin 100 MG CAPSULE 200 MG PO ×2 (08:30→21:07)
[2021-11-27] MEDS: Ferrous Sulfate 324 MG TABLET.DR PO (08:30)
[2021-11-27] MEDS: OXcarbazepine 150 MG TABLET PO ×2 (08:30→21:11)
[2021-11-27] MEDS: Lithium Carbonate 300 MG CAPSULE 600 MG PO ×2 (08:30→21:06)
[2021-11-27] MEDS: Cholecalciferol (Vitamin D3) 25 MCG TABLET PO (08:30)
[2021-11-27] MEDS: Mineral Oil/Petrolatum,White 106 GM Tube 1 APPL TOPICAL ×3 (10:08→21:12)
[2021-11-27] MEDS: Fluticasone/Vilanterol 200/25 BLST.W.DEV 1 PUFF INHALE (10:08)
--- NOTE | 2021-11-27 12:36 | P.PNPSI_ITS ---
Subjective Subjective Date of Service: 11/27/21 Reason For Visit: mood disorder Interim History: pt found sleeping in her room, rousable to voice. she reports she is very tired as she was tossing and turning last night and got poor sleep. she agrees to increase the clonidine to 0.2 mg as of tonight. VSS, WNL. no other complaints or requests, just awaiting word from long-term care facilities. per staff, anx was 10/10 yesterday morning but it reduced to a 5/10 by the end of the day. denies depression. eating well. c/o shoulder pain. visible, interactive. no SI/HI. feeling ready to go. got PRN seroquel and hydroxyzine and appeared to sleep well. Mental Status Exam Mental Status Exam Narrative: asleep in bed late morning. cooperative with interview. no PMA/PMR. speech nml in rate, decr amount, nml loudness, flattened tone, nml latency. thoughts linear and logical. affect constricted, normo-intense, non-labile, c/w context. no SI/HI/AVH expressed. Diagnostics Vital Signs (24Hr): Vital Signs - 24 hr 11/26/21 21:07 11/26/21 21:13 11/27/21 08:23 Temperature 97.6 F 98.0 F Pulse Rate 76 81 73 Respiratory Rate 16 Blood Pressure 140/73 H 123/63 Pulse Oximetry 90 L 93 94 BMI result Verdana 4 Body Mass Index Verdana 4 55.0 Verdana 4 Verdana 4 Labs Results: 11/19/21 07:26 11/19/21 07:26 Imaging Radiology Impressions: ITS Impressions Chest CT 11/16/21 16:32 IMPRESSION: No acute abnormality CT scan of the chest. Fleischner guidelines were followed. Guidance Needle Placement Ultrasound 11/18/21 16:30 IMPRESSION: Ultrasound-guided core biopsy of left parotid mass. Salivary Gland Biopsy Ultrasound 11/18/21 16:30 IMPRESSION: Ultrasound-guided core biopsy of left parotid mass. Medications Medications Current Medications Acetaminophen (Acetaminophen 325 Mg Tablet) 975 mg PO TID TEJA Last Admin: 11/27/21 08:29 Dose: 975 mg Documented by: Al Hydroxide/Mg Hydroxide (Magnesium Hydrox/Alum Hydrox 30 Ml Oral.Susp) 30 ml PO Q6H PRN PRN Reason: Heartburn/Nausea Last Admin: 11/21/21 21:37 Dose: 30 ml Documented by: Albuterol Sulfate (Albuterol Sulfate 90 Mcg 8 Gm Inhaler) 1 puff INHALE RQ4H PRN PRN Reason: mild shortness of breath Last Admin: 11/26/21 21:06 Dose: 1 puff Documented by: Albuterol Sulfate (Albuterol Sulfate (0.042%) 1.25 Mg/3 Ml Vial.Neb) 1.25 mg INHALE RQ4H PRN PRN Reason: moderate shortness of breath Bismuth Subsalicylate (Bismuth Subsalicylate 262 Mg Tablet) 524 mg PO QID PRN PRN Reason: GI distress Last Admin: 11/25/21 02:41 Dose: 524 mg Documented by: Capsaicin (Capsaicin 0.025% Cream 60 Gm Tube) 1 appl TOPICAL QID PRN; Protocol PRN Reason: Pain, Moderate (Pain Scale 4-6 Last Admin: 11/27/21 08:18 Dose: 1 appl Documented by: Clonidine HCl (Clonidine Hcl 0.2 Mg Tablet) 0.2 mg PO BEDTIME [facility]; Protocol Ferrous Sulfate (Ferrous Sulfate 324 Mg Tablet.Dr) 324 mg PO DAILY [facility] Last Admin: 11/27/21 08:30 Dose: 324 mg Documented by: Fluticasone/Vilanterol (Fluticasone/Vilanterol 200/25 Blst.W.Dev) 1 puff INHALE RDAILY [facility] Last Admin: 11/27/21 10:08 Dose: 1 puff Documented by: Gabapentin (Gabapentin 100 Mg Capsule) 200 mg PO BID [facility] Last Admin: 11/27/21 08:30 Dose: 200 mg Documented by: Hydroxyzine HCl (Hydroxyzine Hcl 25 Mg Tablet) 25 mg PO Q6H PRN PRN Reason: Anxiety Last Admin: 11/26/21 21:03 Dose: 25 mg Documented by: [place] Carbonate ([place] Carbonate 300 Mg Capsule) 600 mg PO BID [facility] Last Admin: 11/27/21 08:30 Dose: 600 mg Documented by: Magnesium Citrate (Magnesium Citrate 300 Ml Solution) 300 ml PO DAILY PRN PRN Reason: constipation Magnesium Hydroxide (Milk Of Magnesia 30 Ml Oral.Susp) 30 ml PO DAILY PRN PRN Reason: Constipation Multi-Ingred Cream/Lotion/Oil/Oint (Mineral Oil/Petrolatum,White 106 Gm Tube) 1 appl TOPICAL BID [facility]; Protocol Last Admin: 11/27/21 10:08 Dose: 1 appl Documented by: Nicotine (Nicotine 21 Mg Patch.Td24) 21 mg TRANSDERMA DAILY [facility] Last Admin: 11/27/21 08:27 Dose: 21 mg Documented by: Olanzapine (Olanzapine 10 Mg Tablet) 10 mg PO BEDTIME [facility] Last Admin: 11/26/21 21:03 Dose: 10 mg Documented by: Omeprazole (Omeprazole 20 Mg Capsule.Dr) 20 mg PO DAILY@0630 [facility] Last Admin: 11/27/21 06:54 Dose: 20 mg Documented by: Oxcarbazepine (Oxcarbazepine 150 Mg Tablet) 150 mg PO BID [facility] Last Admin: 11/27/21 08:30 Dose: 150 mg Documented by: Quetiapine Fumarate (Quetiapine Fumarate 25 Mg Tablet) 25 mg PO BID PRN PRN Reason: anxiety Last Admin: 11/26/21 21:03 Dose: 25 mg Documented by: Ropinirole HCl (Ropinirole Hcl 0.5 Mg Tablet) 0.5 mg PO BEDTIME [facility] Last Admin: 11/26/21 21:03 Dose: 0.5 mg Documented by: Sertraline HCl (Sertraline Hcl 50 Mg Tablet) 50 mg PO DAILY [facility] Last Admin: 11/27/21 08:30 Dose: 50 mg Documented by: Simethicone (Simethicone 80 Mg Tab.Chew) 80 mg PO QIDWMHS PRN PRN Reason: gas relief Last Admin: 11/25/21 02:42 Dose: 80 mg Documented by: Trazodone HCl (Trazodone Hcl 100 Mg Tablet) 200 mg PO BEDTIME [facility] Last Admin: 11/26/21 21:03 Dose: 200 mg Documented by: Valacyclovir HCl (Valacycyclovir Hcl 1,000 Mg Tablet) 1,000 mg PO BID [facility] Last Admin: 11/27/21 08:30 Dose: 1,000 mg Documented by: Vitamin D (Cholecalciferol (Vitamin D3) 25 Mcg Tablet) 25 mcg PO DAILY [facility] Last Admin: 11/27/21 08:30 Dose: 25 mcg Documented by: Allergies Allergies Allergy/AdvReac Type Severity Reaction Status Date / Time aspirin [Aspirin] Allergy Severe HIVES,THROAT Verified 10/13/21 04:51 SWELLS bee pollen [BEE Allergy Severe ANAPHYLAXIS Verified 10/13/21 04:51 STINGS] diphenhydramine Allergy Severe hives, Verified 10/13/21 04:51 [From BENADRYL throat ALLERGY] swells Penicillins [PCN] Allergy Severe HIVES Verified 10/13/21 04:51 THROAT SWELLS Sulfa Allergy Intermediate HIVES Verified 10/13/21 04:51 (Sulfonamide Antibiotics) [SULFA (SULFONAMIDE ANTIBIOTICS)] tramadol Allergy Intermediate ITCHING Verified 10/13/21 04:51 [TRAMADOL] latex [LATEX] Allergy Unknown UNKNOWN Verified 10/13/21 04:51 penicillin G Allergy Unknown Unknown Verified 10/13/21 04:51 levofloxacin Allergy Hives Verified 10/13/21 04:51 [From Levaquin] bee stings Allergy Unknown Unknown Uncoded 10/13/21 04:51 DairyCare Allergy Unknown Unknown Uncoded 10/13/21 04:51 sulfa drugs Allergy Unknown Unknown Uncoded 10/13/21 04:51 Assessment & Plan Assessment & Plan (1) PTSD (post-traumatic stress disorder): Status: Acute Code(s): F43.10 - Post-traumatic stress disorder, unspecified Assessment and Plan: continue current regimen aside from increasing trazodone to 200 mg QHS as of 11/12, increasing prazosin to 5 mg QHS as of 11/12, increasing prazosin to 8 mg QHS as of 11/23, and increased zyprexa to 10 mg QHS as of 11/13.? prazosin taper initiated 11/24 due to pt c/o progressively worsening edema since admission. edema improving with prazosin taper, prazosin DCed 11/26. clonidine 0.1 mg QHS started 11/26 to replace the prazosin. clonidine increased to 0.2 mg QHS as of 11/27 due to poor sleep 11/26 tammie. (2) Borderline personality disorder: Status: Acute Code(s): F60.3 - Borderline personality disorder Assessment and Plan: brief stay if possible (3) Mass of parotid gland: Status: Acute Code(s): K11.8 - Other diseases of salivary glands Assessment and Plan: per surgery consult: She has a left parotid mass as described above.? Her CAT scan shows the cystic combination of cystic and solid components.? She already had a biopsy by ultrasound done last November 18, showing this to be parotitis. I will review the imaging studies as well as the path report with the radiologist.? I will see if she needs any further diagnostic workup at this time.? In view of the heterogenous appearance on imaging, we may need to continue to rule out for a neoplastic process down the line.? She will therefore need a head and neck surgeon for this. Again, I will review her imaging studies with the radiologist and we will follow her in the hospital and decide on next step in her care with regards to the parotid mass. per mamie, pt to F/U outpt with head and neck surgeon. (4) FABIOLA (obstructive sleep apnea): Status: Acute Code(s): G47.33 - Obstructive sleep apnea (adult) (pediatric) Assessment and Plan: per pulm consult: 51-year-old lady with underlying obesity, FABIOLA, asthma/COPD overlap syndrome hospitalized with psychiatric diagnosis noted to have intermittent hypoxic episodes.? Currently on Breo and nocturnal CPAP.? At this time her asthma/COPD symptoms appears to be well controlled on current regimen of Breo and albuterol MDI.? Intermittent hypoxic episodes appears to have resolved at this time and may have been related to over-sedation from psychiatric medications.? At this time there is no ongoing asthma or COPD exacerbation. Recommendations:? Continue with current regimen of Breo and albuterol MDI.? Continue with nocturnal CPAP.? Patient would benefit from outpatient pulmonary follow-up. (5) Carotid stenosis: Status: Acute Code(s): I65.29 - Occlusion and stenosis of unspecified carotid artery Assessment and Plan: outpt F/U (6) Abnormal EEG: Status: Acute Code(s): R94.01 - Abnormal electroencephalogram [EEG] Assessment and Plan: started trileptal 150 BID per neuro rec (7) Cocaine use disorder: Status: Acute Code(s): F14.10 - Cocaine abuse, uncomplicated Assessment and Plan: abstain Plan continue outpt meds aside from as noted above. plan to dispo to [facility] respite bed 11/14/2021 Continue current regimen and plans with no changes today 11/15/2021 Continue current plans and regimen.? No changes were made today 11/16- Pt desaturating in 88's when ambulating, visibly SOB, respiratory consult placed, february need Oxygen. no other concerns. 11/17 - place pulm consult for any Tx change recs.? liaison with onc for FNA of parotid mass.? otherwise continue current mgmt.? aftercare planning - [facility]. 11/18 - pulm recommends continuing present care and outpt F/U.? FNA done 11/18.? dispo pending. 11/19 - two episodes of what appeared to be pseudoseizures: brief episodes of altered consciousness. 11/20 - no further pseudoSz.? increasing prazosin to 6 mg tonight.? awaiting acceptance at [facility]. 11/21 and 11/22: no changes to primary? teams plan 11/23 - pathology results are non-malignant.? more c/w infection of salivary gland.? will F/U with Mamie.? pt reports she has been accepted to long-term care facility, dispo pending. 11/24 - surgery consult placed for infected salivary gland abscess.? application in at high view.? prazosin taper initiated due to edema. 11/25 - surgery to review radiology and consult with head and neck surgeon, perhaps, re mgmt. prazosin further tapered, edema decrease slightly per pt report. 11/26 - DC prazosin, start clonidine. to F/U with head and neck surgeon after discharge re parotid mass. 11/27 - clonidine up-titrated. I spent minutes with the patient and/or on the patient floor today, greater than?50% of which was spent counseling/coordinating care. Reason for contiued inpatient stay Substantial Risk for: inability to function and rapid decompensation
--- NOTE | 2021-11-27 12:57 | PC.NURSE ---
Called physical therapy to follow up on PT consults. Iraida Ashford PT stated she already saw this patient and recommended intermediate accountant care.
[2021-11-27] MEDS: Magnesium Hydrox/Alum Hydrox 30 ML ORAL.SUSP PO (15:44)
--- NOTE | 2021-11-27 18:01 | PC.NURSE ---
During dinner PT had choking episode while eating, heimlick was used with good effect. Md notified, diet changed to soft foods.
[2021-11-27] MEDS: Albuterol Sulfate 90 MCG 8 GM INHALER 1 PUFF INHALE (18:36)
[2021-11-27 21:02] VITALS: BP 130/74; PULSE 73; TEMP 36.6; O2SAT 94
[2021-11-27] MEDS: rOPINIRole HCL 0.5 MG TABLET PO (21:06)
[2021-11-27] MEDS: QUEtiapine Fumarate 25 MG TABLET PO (21:06)
[2021-11-27] MEDS: OLANZapine 10 MG TABLET PO (21:06)
[2021-11-27] MEDS: traZODone HCL 100 MG TABLET 200 MG PO (21:06)
[2021-11-27] MEDS: hydrOXYzine HCL 25 MG TABLET PO (21:07)
[2021-11-27] MEDS: cloNIDine HCL 0.2 MG TABLET PO (21:07)
[2021-11-28 06:00] VITALS: BP 121/62; PULSE 78; RESP 16; TEMP 36.6; O2SAT 93
[2021-11-28] MEDS: Omeprazole 20 MG CAPSULE.DR PO (06:45)
[2021-11-28] MEDS: Nicotine 21 MG PATCH.TD24 TRANSDERMA (09:15)
[2021-11-28] MEDS: Sertraline HCL 50 MG TABLET PO (09:16)
[2021-11-28] MEDS: Lithium Carbonate 300 MG CAPSULE 600 MG PO ×2 (09:16→20:52)
[2021-11-28] MEDS: Cholecalciferol (Vitamin D3) 25 MCG TABLET PO (09:17)
[2021-11-28] MEDS: Ferrous Sulfate 324 MG TABLET.DR PO (09:17)
[2021-11-28] MEDS: Gabapentin 100 MG CAPSULE 200 MG PO ×2 (09:17→20:52)
[2021-11-28] MEDS: OXcarbazepine 150 MG TABLET PO ×2 (09:17→20:50)
[2021-11-28] MEDS: Acetaminophen 325 MG TABLET 975 MG PO ×2 (09:57→20:51)
[2021-11-28] MEDS: Capsaicin 0.025% Cream 60 GM TUBE 1 APPL TOPICAL ×2 (10:00→20:53)
[2021-11-28] MEDS: Fluticasone/Vilanterol 200/25 BLST.W.DEV 1 PUFF INHALE (10:00)
--- NOTE | 2021-11-28 12:31 | P.PNPSI_ITS ---
Subjective Subjective Date of Service: 11/28/21 Reason For Visit: mood disorder Interim History: The nursing staff reported that she was not anxious or dysphoric, deambulating without impairment. She complaint of shoulder pain 06/09. Yesterday, she had a choking accident so her diet was changed to ground diet. On interview, she denies new symptoms, complaints of shouder pain. Mental Status Exam Mental Status Exam Patient Appearance: Appropriate Patient Orientation: Person Level of Consciousness: Awake Patient Behavior: Cooperative Mood Description: Withdrawn and Depressed Affect Description: Constricted Ability to Follow Directions: Good Speech Pattern: Clear Hallucinations: None Delusions: Not Present Thought Process: Linear Thought Content: positive for Circumstantial Judgement: Fair Diagnostics Vital Signs (24Hr): Vital Signs - 24 hr 11/27/21 21:02 11/28/21 06:00 Temperature 97.8 F 97.9 F Pulse Rate 73 78 Respiratory Rate 16 Blood Pressure 130/74 121/62 Pulse Oximetry 94 93 BMI result Verdana 4 Body Mass Index Verdana 4 55.0 Verdana 4 Verdana 4 Labs Results: 11/19/21 07:26 11/19/21 07:26 Imaging Radiology Impressions: ITS Impressions Chest CT 11/16/21 16:32 IMPRESSION: No acute abnormality CT scan of the chest. Fleischner guidelines were followed. Guidance Needle Placement Ultrasound 11/18/21 16:30 IMPRESSION: Ultrasound-guided core biopsy of left parotid mass. Salivary Gland Biopsy Ultrasound 11/18/21 16:30 IMPRESSION: Ultrasound-guided core biopsy of left parotid mass. Medications Medications Current Medications Acetaminophen (Acetaminophen 325 Mg Tablet) 975 mg PO TID [facility] Last Admin: 11/28/21 09:57 Dose: 975 mg Documented by: Al Hydroxide/Mg Hydroxide (Magnesium Hydrox/Alum Hydrox 30 Ml Oral.Susp) 30 ml PO Q6H PRN PRN Reason: Heartburn/Nausea Last Admin: 11/27/21 15:44 Dose: 30 ml Documented by: Albuterol Sulfate (Albuterol Sulfate 90 Mcg 8 Gm Inhaler) 1 puff INHALE RQ4H PRN PRN Reason: mild shortness of breath Last Admin: 11/27/21 18:36 Dose: 1 puff Documented by: Albuterol Sulfate (Albuterol Sulfate (0.042%) 1.25 Mg/3 Ml Vial.Neb) 1.25 mg INHALE RQ4H PRN PRN Reason: moderate shortness of breath Bismuth Subsalicylate (Bismuth Subsalicylate 262 Mg Tablet) 524 mg PO QID PRN PRN Reason: GI distress Last Admin: 11/25/21 02:41 Dose: 524 mg Documented by: Capsaicin (Capsaicin 0.025% Cream 60 Gm Tube) 1 appl TOPICAL QID PRN; Protocol PRN Reason: Pain, Moderate (Pain Scale 4-6 Last Admin: 11/28/21 10:00 Dose: 1 appl Documented by: Clonidine HCl (Clonidine Hcl 0.2 Mg Tablet) 0.2 mg PO BEDTIME [facility]; Protocol Last Admin: 11/27/21 21:07 Dose: 0.2 mg Documented by: Ferrous Sulfate (Ferrous Sulfate 324 Mg Tablet.Dr) 324 mg PO DAILY [facility] Last Admin: 11/28/21 09:17 Dose: 324 mg Documented by: Fluticasone/Vilanterol (Fluticasone/Vilanterol 200/25 Blst.W.Dev) 1 puff INHALE RDAILY [facility] Last Admin: 11/28/21 10:00 Dose: 1 puff Documented by: Gabapentin (Gabapentin 100 Mg Capsule) 200 mg PO BID [facility] Last Admin: 11/28/21 09:17 Dose: 200 mg Documented by: Hydroxyzine HCl (Hydroxyzine Hcl 25 Mg Tablet) 25 mg PO Q6H PRN PRN Reason: Anxiety Last Admin: 11/27/21 21:07 Dose: 25 mg Documented by: [place] Carbonate ([place] Carbonate 300 Mg Capsule) 600 mg PO BID [facility] Last Admin: 11/28/21 09:16 Dose: 600 mg Documented by: Magnesium Citrate (Magnesium Citrate 300 Ml Solution) 300 ml PO DAILY PRN PRN Reason: constipation Magnesium Hydroxide (Milk Of Magnesia 30 Ml Oral.Susp) 30 ml PO DAILY PRN PRN Reason: Constipation Multi-Ingred Cream/Lotion/Oil/Oint (Mineral Oil/Petrolatum,White 106 Gm Tube) 1 appl TOPICAL BID [facility]; Protocol Last Admin: 11/27/21 21:12 Dose: 1 appl Documented by: Nicotine (Nicotine 21 Mg Patch.Td24) 21 mg TRANSDERMA DAILY [facility] Last Admin: 11/28/21 09:15 Dose: 21 mg Documented by: Olanzapine (Olanzapine 10 Mg Tablet) 10 mg PO BEDTIME [facility] Last Admin: 11/27/21 21:06 Dose: 10 mg Documented by: Omeprazole (Omeprazole 20 Mg Capsule.Dr) 20 mg PO DAILY@0630 [facility] Last Admin: 11/28/21 06:45 Dose: 20 mg Documented by: Oxcarbazepine (Oxcarbazepine 150 Mg Tablet) 150 mg PO BID [facility] Last Admin: 11/28/21 09:17 Dose: 150 mg Documented by: Quetiapine Fumarate (Quetiapine Fumarate 25 Mg Tablet) 25 mg PO BID PRN PRN Reason: anxiety Last Admin: 11/27/21 21:06 Dose: 25 mg Documented by: Ropinirole HCl (Ropinirole Hcl 0.5 Mg Tablet) 0.5 mg PO BEDTIME [facility] Last Admin: 11/27/21 21:06 Dose: 0.5 mg Documented by: Sertraline HCl (Sertraline Hcl 50 Mg Tablet) 50 mg PO DAILY [facility] Last Admin: 11/28/21 09:16 Dose: 50 mg Documented by: Simethicone (Simethicone 80 Mg Tab.Chew) 80 mg PO QIDWMHS PRN PRN Reason: gas relief Last Admin: 11/25/21 02:42 Dose: 80 mg Documented by: Trazodone HCl (Trazodone Hcl 100 Mg Tablet) 200 mg PO BEDTIME [facility] Last Admin: 11/27/21 21:06 Dose: 200 mg Documented by: Valacyclovir HCl (Valacycyclovir Hcl 1,000 Mg Tablet) 1,000 mg PO BID [facility] Last Admin: 11/28/21 09:16 Dose: 1,000 mg Documented by: Vitamin D (Cholecalciferol (Vitamin D3) 25 Mcg Tablet) 25 mcg PO DAILY [facility] Last Admin: 11/28/21 09:17 Dose: 25 mcg Documented by: Allergies Allergies Allergy/AdvReac Type Severity Reaction Status Date / Time aspirin [Aspirin] Allergy Severe HIVES,THROAT Verified 10/13/21 04:51 SWELLS bee pollen [BEE Allergy Severe ANAPHYLAXIS Verified 10/13/21 04:51 STINGS] diphenhydramine Allergy Severe hives, Verified 10/13/21 04:51 [From BENADRYL throat ALLERGY] swells Penicillins [PCN] Allergy Severe HIVES Verified 10/13/21 04:51 THROAT SWELLS Sulfa Allergy Intermediate HIVES Verified 10/13/21 04:51 (Sulfonamide Antibiotics) [SULFA (SULFONAMIDE ANTIBIOTICS)] tramadol Allergy Intermediate ITCHING Verified 10/13/21 04:51 [TRAMADOL] latex [LATEX] Allergy Unknown UNKNOWN Verified 10/13/21 04:51 penicillin G Allergy Unknown Unknown Verified 10/13/21 04:51 levofloxacin Allergy Hives Verified 10/13/21 04:51 [From Levaquin] bee stings Allergy Unknown Unknown Uncoded 10/13/21 04:51 DairyCare Allergy Unknown Unknown Uncoded 10/13/21 04:51 sulfa drugs Allergy Unknown Unknown Uncoded 10/13/21 04:51 Assessment & Plan Assessment & Plan (1) PTSD (post-traumatic stress disorder): Status: Acute Code(s): F43.10 - Post-traumatic stress disorder, unspecified Assessment and Plan: continue current regimen aside from increasing trazodone to 200 mg QHS as of 10/31, increasing prazosin to 5 mg QHS as of 11/12, increasing prazosin to 8 mg QHS as of 11/23, and increased zyprexa to 10 mg QHS as of 11/13.? prazosin taper initiated 11/24 due to pt c/o progressively worsening edema since admission. edema improving with prazosin taper, prazosin DCed 11/26. clonidine 0.1 mg QHS started 11/26 to replace the prazosin. clonidine increased to 0.2 mg QHS as of 11/27 due to poor sleep 11/26 tammie. (2) Borderline personality disorder: Status: Acute Code(s): F60.3 - Borderline personality disorder Assessment and Plan: brief stay if possible (3) Mass of parotid gland: Status: Acute Code(s): K11.8 - Other diseases of salivary glands Assessment and Plan: per surgery consult: She has a left parotid mass as described above.? Her CAT scan shows the cystic combination of cystic and solid components.? She already had a biopsy by ultrasound done last November 18, showing this to be parotitis. I will review the imaging studies as well as the path report with the radiologis t.? I will see if she needs any further diagnostic workup at this time.? In view of the heterogenous appearance on imaging, we may need to continue to rule out for a neoplastic process down the line.? She will therefore need a head and neck surgeon for this. Again, I will review her imaging studies with the radiologist and we will follow her in the hospital and decide on next step in her care with regards to the parotid mass. per mamie, pt to F/U outpt with head and neck surgeon. (4) FABIOLA (obstructive sleep apnea): Status: Acute Code(s): G47.33 - Obstructive sleep apnea (adult) (pediatric) Assessment and Plan: per pulm consult: 51-year-old lady with underlying obesity, FABIOLA, asthma/COPD overlap syndrome hospitalized with psychiatric diagnosis noted to have intermittent hypoxic episodes.? Currently on Breo and nocturnal CPAP.? At this t joshua her asthma/COPD symptoms appears to be well controlled on current regimen of Breo and albuterol MDI.? Intermittent hypoxic episodes appears to have resolved at this time and may have been related to over-sedation from psychiatric medications.? At this time there is no ongoing asthma or COPD exacerbation. Recommendations:? Continue with current regimen of Breo and albuterol MDI.? Continue with nocturnal CPAP.? Patient would benefit from outpatient pulmonary follow-up. (5) Carotid stenosis: Status: Acute Code(s): I65.29 - Occlusion and stenosis of unspecified carotid artery Assessment and Plan: outpt F/U (6) Abnormal EEG: Status: Acute Code(s): R94.01 - Abnormal electroencephalogram [EEG] Assessment and Plan: started trileptal 150 BID per neuro rec (7) Cocaine use disorder: Status: Acute Code(s): F14.10 - Cocaine abuse, uncomplicated Assessment and Plan: abstain Plan continue outpt meds aside from as noted above. plan to dispo to [facility] respite bed 11/14/2021 Continue current regimen and plans with no changes today 11/15/2021 Continue current plans and regimen.? No changes were made today 11/16- Pt desaturating in 88's when ambulating, visibly SOB, respiratory consult placed, may need Oxygen. no other concerns. 11/17 - place pulm consult for any Tx change recs.? liaison with onc for FNA of parotid mass.? otherwise continue current mgmt.? aftercare planning - SNF. 11/18 - pulm recommends continuing present care and outpt F/U.? FNA done 11/18.? dispo pending. 11/19 - two episodes of what appeared to be pseudoseizures: brief episodes of altered consciousness. 11/20 - no further pseudoSz.? increasing prazosin to 6 mg tonight.? awaiting acceptance at [facility]. 11/21 and 11/22: no changes to primary? teams plan 11/23 - pathology results are non-malignant.? more c/w infection of salivary gland.? will F/U with Mamie.? pt reports she has been accepted to long-term care facility, dispo pending. 11/24 - surgery consult placed for infected salivary gland abscess.? application in at high view.? prazosin taper initiated due to edema. 11/25 - surgery to review radiology and consult with head and neck surgeon, perhaps, re mgmt. prazosin further tapered, edema decrease slightly per pt report. 11/26 - DC prazosin, start clonidine. to F/U with head and neck surgeon after discharge re parotid mass. 11/27 - clonidine up-titrated. I spent minutes with the patient and/or on the patient floor today, greater than?50% of which was spent counseling/coordinating care. Reason for contiued inpatient stay Substantial Risk for: inability to function, rapid decompensation and med/psych decompensation
[2021-11-28] MEDS: Simethicone 80 MG TAB.CHEW PO (19:25)
[2021-11-28] MEDS: rOPINIRole HCL 0.5 MG TABLET PO (20:50)
[2021-11-28] MEDS: traZODone HCL 100 MG TABLET 200 MG PO (20:50)
[2021-11-28] MEDS: OLANZapine 10 MG TABLET PO (20:51)
[2021-11-28] MEDS: hydrOXYzine HCL 25 MG TABLET PO (20:52)
[2021-11-28] MEDS: cloNIDine HCL 0.2 MG TABLET PO (20:52)
[2021-11-28 20:58] VITALS: BP 136/64; PULSE 80; TEMP 36.8; O2SAT 92
[2021-11-28] MEDS: Mineral Oil/Petrolatum,White 106 GM Tube 1 APPL TOPICAL (20:58)
[2021-11-29] MEDS: Omeprazole 20 MG CAPSULE.DR PO (06:00)
[2021-11-29 08:26] VITALS: BP 105/56; PULSE 72; RESP 16; TEMP 36.9; O2SAT 94
[2021-11-29] MEDS: Fluticasone/Vilanterol 200/25 BLST.W.DEV 1 PUFF INHALE (08:27)
[2021-11-29] MEDS: Capsaicin 0.025% Cream 60 GM TUBE 1 APPL TOPICAL ×2 (08:27→20:30)
[2021-11-29] MEDS: Ferrous Sulfate 324 MG TABLET.DR PO (08:28)
[2021-11-29] MEDS: Sertraline HCL 50 MG TABLET PO (08:28)
[2021-11-29] MEDS: Lithium Carbonate 300 MG CAPSULE 600 MG PO ×2 (08:28→20:54)
[2021-11-29] MEDS: Cholecalciferol (Vitamin D3) 25 MCG TABLET PO (08:28)
[2021-11-29] MEDS: Gabapentin 100 MG CAPSULE 200 MG PO ×2 (08:28→20:54)
[2021-11-29] MEDS: Acetaminophen 325 MG TABLET 975 MG PO ×3 (08:28→20:54)
[2021-11-29] MEDS: OXcarbazepine 150 MG TABLET PO ×2 (08:28→20:54)
[2021-11-29] MEDS: Nicotine 21 MG PATCH.TD24 TRANSDERMA (08:29)
[2021-11-29] MEDS: Mineral Oil/Petrolatum,White 106 GM Tube 1 APPL TOPICAL (08:33)
[2021-11-29] MEDS: Magnesium Hydrox/Alum Hydrox 30 ML ORAL.SUSP PO (09:27)
[2021-11-29] MEDS: hydrOXYzine HCL 25 MG TABLET PO ×2 (11:38→20:54)
--- NOTE | 2021-11-29 12:39 | P.PNPSI_ITS ---
Subjective Subjective Date of Service: 11/29/21 Reason For Visit: mood disorder Interim History: The nursing staff reported that the patient was doing good, she slept well, social with selected peers. On interview, she didn't lkie the grounded diet so she agreed to ask for a consult for speech and swallow. She denies safety concerns. Mental Status Exam Mental Status Exam Patient Appearance: Well Grooomed Patient Orientation: Person and Situation Level of Consciousness: Awake Patient Behavior: Cooperative Mood Description: Depressed Affect Description: Constricted Patient Cognition Impaired: No Ability to Follow Directions: Good Speech Pattern: Appropriate Hallucinations: None Delusions: Not Present Thought Process: Linear Thought Content: positive for Circumstantial Judgement: Fair Diagnostics Vital Signs (24Hr): Vital Signs - 24 hr 11/28/21 20:58 11/29/21 08:26 Temperature 98.3 F 98.4 F Pulse Rate 80 72 Respiratory Rate 16 Blood Pressure 136/64 105/56 L Pulse Oximetry 92 94 BMI result Verdana 4 Body Mass Index Verdana 4 55.0 Verdana 4 Verdana 4 Labs Results: 11/19/21 07:26 11/19/21 07:26 Imaging Radiology Impressions: ITS Impressions Chest CT 11/16/21 16:32 IMPRESSION: No acute abnormality CT scan of the chest. Fleischner guidelines were followed. Guidance Needle Placement Ultrasound 11/18/21 16:30 IMPRESSION: Ultrasound-guided core biopsy of left parotid mass. Salivary Gland Biopsy Ultrasound 11/18/21 16:30 IMPRESSION: Ultrasound-guided core biopsy of left parotid mass. Medications Medications Current Medications Acetaminophen (Acetaminophen 325 Mg Tablet) 975 mg PO TID [facility] Last Admin: 11/29/21 08:28 Dose: 975 mg Documented by: Al Hydroxide/Mg Hydroxide (Magnesium Hydrox/Alum Hydrox 30 Ml Oral.Susp) 30 ml PO Q6H PRN PRN Reason: Heartburn/Nausea Last Admin: 11/29/21 09:27 Dose: 30 ml Documented by: Albuterol Sulfate (Albuterol Sulfate 90 Mcg 8 Gm Inhaler) 1 puff INHALE RQ4H PRN PRN Reason: mild shortness of breath Last Admin: 11/27/21 18:36 Dose: 1 puff Documented by: Bismuth Subsalicylate (Bismuth Subsalicylate 262 Mg Tablet) 524 mg PO QID PRN PRN Reason: GI distress Last Admin: 11/25/21 02:41 Dose: 524 mg Documented by: Capsaicin (Capsaicin 0.025% Cream 60 Gm Tube) 1 appl TOPICAL QID PRN; Protocol PRN Reason: Pain, Moderate (Pain Scale 4-6 Last Admin: 11/29/21 08:27 Dose: 1 appl Documented by: Clonidine HCl (Clonidine Hcl 0.2 Mg Tablet) 0.2 mg PO BEDTIME [facility]; Protocol Last Admin: 11/28/21 20:52 Dose: 0.2 mg Documented by: Ferrous Sulfate (Ferrous Sulfate 324 Mg Tablet.) 324 mg PO DAILY [facility] Last Admin: 11/29/21 08:28 Dose: 324 mg Documented by: Fluticasone/Vilanterol (Fluticasone/Vilanterol 200/25 Blst.W.Dev) 1 puff INHALE RDAILY [facility] Last Admin: 11/29/21 08:27 Dose: 1 puff Documented by: Gabapentin (Gabapentin 100 Mg Capsule) 200 mg PO BID [facility] Last Admin: 11/29/21 08:28 Dose: 200 mg Documented by: Hydroxyzine HCl (Hydroxyzine Hcl 25 Mg Tablet) 25 mg PO Q6H PRN PRN Reason: Anxiety Last Admin: 11/29/21 11:38 Dose: 25 mg Documented by: [place] Carbonate ([place] Carbonate 300 Mg Capsule) 600 mg PO BID [facility] Last Admin: 11/29/21 08:28 Dose: 600 mg Documented by: Magnesium Citrate (Magnesium Citrate 300 Ml Solution) 300 ml PO DAILY PRN PRN Reason: constipation Magnesium Hydroxide (Milk Of Magnesia 30 Ml Oral.Susp) 30 ml PO DAILY PRN PRN Reason: Constipation Multi-Ingred Cream/Lotion/Oil/Oint (Mineral Oil/Petrolatum,White 106 Gm Tube) 1 appl TOPICAL BID [facility]; Protocol Last Admin: 11/29/21 08:33 Dose: 1 appl Documented by: Nicotine (Nicotine 21 Mg Patch.Td24) 21 mg TRANSDERMA DAILY [facility] Last Admin: 11/29/21 08:29 Dose: 21 mg Documented by: Olanzapine (Olanzapine 10 Mg Tablet) 10 mg PO BEDTIME [facility] Last Admin: 11/28/21 20:51 Dose: 10 mg Documented by: Omeprazole (Omeprazole 20 Mg Capsule.) 20 mg PO DAILY@0630 [facility] Last Admin: 11/29/21 06:00 Dose: 20 mg Documented by: Oxcarbazepine (Oxcarbazepine 150 Mg Tablet) 150 mg PO BID [facility] Last Admin: 11/29/21 08:28 Dose: 150 mg Documented by: Quetiapine Fumarate (Quetiapine Fumarate 25 Mg Tablet) 25 mg PO BID PRN PRN Reason: anxiety Last Admin: 11/27/21 21:06 Dose: 25 mg Documented by: Ropinirole HCl (Ropinirole Hcl 0.5 Mg Tablet) 0.5 mg PO BEDTIME [facility] Last Admin: 11/28/21 20:50 Dose: 0.5 mg Documented by: Sertraline HCl (Sertraline Hcl 50 Mg Tablet) 50 mg PO DAILY [facility] Last Admin: 11/29/21 08:28 Dose: 50 mg Documented by: Simethicone (Simethicone 80 Mg Tab.Chew) 80 mg PO QIDWMHS PRN PRN Reason: gas relief Last Admin: 11/28/21 19:25 Dose: 80 mg Documented by: Trazodone HCl (Trazodone Hcl 100 Mg Tablet) 200 mg PO BEDTIME [facility] Last Admin: 11/28/21 20:50 Dose: 200 mg Documented by: Valacyclovir HCl (Valacycyclovir Hcl 1,000 Mg Tablet) 1,000 mg PO BID [facility] Last Admin: 11/29/21 08:28 Dose: 1,000 mg Documented by: Vitamin D (Cholecalciferol (Vitamin D3) 25 Mcg Tablet) 25 mcg PO DAILY [facility] Last Admin: 11/29/21 08:28 Dose: 25 mcg Documented by: Allergies Allergies Allergy/AdvReac Type Severity Reaction Status Date / Time aspirin [Aspirin] Allergy Severe HIVES,THROAT Verified 10/13/21 04:51 SWELLS bee pollen [BEE Allergy Severe ANAPHYLAXIS Verified 10/13/21 04:51 STINGS] diphenhydramine Allergy Severe hives, Verified 10/13/21 04:51 [From BENADRYL throat ALLERGY] swells Penicillins [PCN] Allergy Severe HIVES Verified 10/13/21 04:51 THROAT SWELLS Sulfa Allergy Intermediate HIVES Verified 10/13/21 04:51 (Sulfonamide Antibiotics) [SULFA (SULFONAMIDE ANTIBIOTICS)] tramadol Allergy Intermediate ITCHING Verified 10/13/21 04:51 [TRAMADOL] latex [LATEX] Allergy Unknown UNKNOWN Verified 10/13/21 04:51 penicillin G Allergy Unknown Unknown Verified 10/13/21 04:51 levofloxacin Allergy Hives Verified 10/13/21 04:51 [From Levaquin] bee stings Allergy Unknown Unknown Uncoded 10/13/21 04:51 DairyCare Allergy Unknown Unknown Uncoded 10/13/21 04:51 sulfa drugs Allergy Unknown Unknown Uncoded 10/13/21 04:51 Assessment & Plan Assessment & Plan (1) PTSD (post-traumatic stress disorder): Status: Acute Code(s): F43.10 - Post-traumatic stress disorder, unspecified Assessment and Plan: continue current regimen aside from increasing trazodone to 200 mg QHS as of 11/12, increasing prazosin to 5 mg QHS as of 11/12, increasing prazosin to 8 mg QHS as of 11/23, and increased zyprexa to 10 mg QHS as of 11/13.? prazosin taper initiated 11/24 due to pt c/o progressively worsening edema since admission. edema improving with prazosin taper, prazosin DCed 11/26. clonidine 0.1 mg QHS started 11/26 to replace the prazosin. clonidine increased to 0.2 mg QHS as of 11/27 due to poor sleep 11/26 tammie. Today, she agreed to have speech and swallow evaluation, order put (2) Borderline personality disorder: Status: Acute Code(s): F60.3 - Borderline personality disorder Assessment and Plan: brief stay if possible (3) Mass of parotid gland: Status: Acute Code(s): K11.8 - Other diseases of salivary glands Assessment and Plan: per surgery consult: She has a left parotid mass as described above.? Her CAT scan shows the cystic combination of cystic and solid components.? She already had a biopsy by ultrasound done last November 18, showing this to be parotitis. I will review the imaging studies as well as the path report with the radiologist.? I will see if she needs any further diagnostic workup at this time.? In view of the heterogenous appearance on imaging, we may need to continue to rule out for a neoplastic process down the line.? She will therefore need a head and neck surgeon for this. Again, I will review her imaging studies with the radiologist and we will follow her in the hospital and decide on next step in her care with regards to the parotid mass. per mamie, pt to F/U outpt with head and neck surgeon. (4) FABIOLA (obstructive sleep apnea): Status: Acute Code(s): G47.33 - Obstructive sleep apnea (adult) (pediatric) Assessment and Plan: per pulm consult: 51-year-old lady with underlying obesity, FABIOLA, asthma/COPD overlap syndrome hospitalized with psychiatric diagnosis noted to have intermittent hypoxic episodes.? Currently on Breo and nocturnal CPAP.? At this time her asthma/COPD symptoms appears to be well controlled on current regimen of Breo and albuterol MDI.? Intermittent hypoxic episodes appears to have resol duran at this time and may have been related to over-sedation from psychiatric medications.? At this time there is no ongoing asthma or COPD exacerbation. Recommendations:? Continue with current regimen of Breo and albuterol MDI.? Continue with nocturnal CPAP.? Patient would benefit from outpatient pulmonary follow-up. (5) Carotid stenosis: Status: Acute Code(s): I65.29 - Occlusion and stenosis of unspecified carotid artery Assessment and Plan: outpt F/U (6) Abnormal EEG: Status: Acute Code(s): R94.01 - Abnormal electroencephalogram [EEG] Assessment and Plan: started trileptal 150 BID per neuro rec (7) Cocaine use disorder: Status: Acute Code(s): F14.10 - Cocaine abuse, uncomplicated Assessment and Plan: abstain Plan continue outpt meds aside from as noted above. plan to dispo to [facility] respite bed 11/14/2021 Continue current regimen and plans with no changes today 11/15/2021 Continue current plans and regimen.? No changes were made today 11/16- Pt desaturating in 88's when ambulating, visibly SOB, respiratory consult placed, may need Oxygen. no other concerns. 11/17 - place pulm consult for any Tx change recs.? liaison with onc for FNA of parotid mass.? otherwise continue current mgmt.? aftercare planning - SNF. 11/18 - pulm recommends continuing present care and outpt F/U.? FNA done 11/18.? dispo pending. 11/19 - two episodes of what appeared to be pseudoseizures: brief episodes of altered consciousness. 11/20 - no further pseudoSz.? increasing prazosin to 6 mg tonight.? awaiting acceptance at [facility]. 11/21 and 11/22: no changes to primary? teams plan 11/23 - pathology results are non-malignant.? more c/w infection of salivary gland.? will F/U with Mamie.? pt reports she has been accepted to long-term care facility, dispo pending. 11/24 - surgery consult placed for infected salivary gland abscess.? application in at high view.? prazosin taper initiated due to edema. 11/25 - surgery to review radiology and consult with head and neck surgeon, perhaps, re mgmt. prazosin further tapered, edema decrease slightly per pt report. 11/26 - DC prazosin, start clonidine. to F/U with head and neck surgeon after discharge re parotid mass. 11/27 - clonidine up-titrated. I spent minutes with the patient and/or on the patient floor today, greater than?50% of which was spent counseling/coordinating care. Reason for contiued inpatient stay Substantial Risk for: inability to function, rapid decompensation and med/psych decompensation
[2021-11-29] MEDS: Albuterol Sulfate 90 MCG 8 GM INHALER 1 PUFF INHALE (20:17)
[2021-11-29 20:22] VITALS: BP 137/66; PULSE 88; TEMP 36.7; O2SAT 95
[2021-11-29] MEDS: cloNIDine HCL 0.2 MG TABLET PO (20:53)
[2021-11-29] MEDS: OLANZapine 10 MG TABLET PO (20:53)
[2021-11-29] MEDS: QUEtiapine Fumarate 25 MG TABLET PO (20:54)
[2021-11-29] MEDS: rOPINIRole HCL 0.5 MG TABLET PO (20:54)
[2021-11-29] MEDS: traZODone HCL 100 MG TABLET 200 MG PO (20:54)
[2021-11-30] MEDS: Capsaicin 0.025% Cream 60 GM TUBE 1 APPL TOPICAL ×3 (07:05→20:51)
[2021-11-30 08:00] VITALS: BP 107/58; PULSE 75; RESP 16; TEMP 36.6; O2SAT 94
[2021-11-30] MEDS: Acetaminophen 325 MG TABLET 975 MG PO ×3 (08:53→20:50)
[2021-11-30] MEDS: Lithium Carbonate 300 MG CAPSULE 600 MG PO ×2 (08:54→20:50)
[2021-11-30] MEDS: Omeprazole 20 MG CAPSULE.DR PO (08:54)
[2021-11-30] MEDS: OXcarbazepine 150 MG TABLET PO ×2 (08:54→20:50)
[2021-11-30] MEDS: Ferrous Sulfate 324 MG TABLET.DR PO (08:54)
[2021-11-30] MEDS: Gabapentin 100 MG CAPSULE 200 MG PO ×2 (08:54→20:49)
[2021-11-30] MEDS: Sertraline HCL 50 MG TABLET PO (08:54)
[2021-11-30] MEDS: Cholecalciferol (Vitamin D3) 25 MCG TABLET PO (08:54)
[2021-11-30] MEDS: Mineral Oil/Petrolatum,White 106 GM Tube 1 APPL TOPICAL ×2 (08:55→20:51)
[2021-11-30] MEDS: Nicotine 21 MG PATCH.TD24 TRANSDERMA (09:49)
--- NOTE | 2021-11-30 12:59 | HO.PSYCHPN ---
Subjective Subjective Date of Service: 11/30/21 Reason For Visit: mood disorder Interim History: pt found sleeping in her room. rousable to voice. states she is not sleeping well at night and is catching up now. agrees to increase clonidine at HS for nightmares and insomnia. otherwise says she is doing reasonably well, no further complaints or requests. per staff, feeling well tuesday, safe, visible in the morning. not sleeping well, however, with nightmares. c/o shoulder pain. denies depression, endorses mild anxiety. denies SI/HI. verbal altercation with peer this morning. later in the day asking for PRN for pain. swallow eval completed, soft diet recommended. Mental Status Exam Mental Status Exam Narrative: asleep in bed late morning. cooperative with interview. no PMA/PMR. speech nml in rate, decr amount, nml loudness, flattened tone, nml latency. thoughts linear and logical. affect constricted, normo-intense, non-labile, c/w context. no SI/HI/AVH expressed. Diagnostics Vital Signs (24Hr): Vital Signs - 24 hr 11/29/21 20:22 11/30/21 08:00 Temperature 98.0 F 97.9 F Pulse Rate 88 75 Respiratory Rate 16 Blood Pressure 137/66 107/58 L Pulse Oximetry 95 94 BMI result Body Mass Index 55.0 Labs Results: 11/19/21 07:26 11/19/21 07:26 Imaging Radiology Impressions: ITS Impressions Chest CT 11/16/21 16:32 IMPRESSION: No acute abnormality CT scan of the chest. Fleischner guidelines were followed. Guidance Needle Placement Ultrasound 11/18/21 16:30 IMPRESSION: Ultrasound-guided core biopsy of left parotid mass. Salivary Gland Biopsy Ultrasound 11/18/21 16:30 IMPRESSION: Ultrasound-guided core biopsy of left parotid mass. Medications Medications Current Medications Acetaminophen (Acetaminophen 325 Mg Tablet) 975 mg PO TID TEJA Last Admin: 11/30/21 08:53 Dose: 975 mg Documented by: Al Hydroxide/Mg Hydroxide (Magnesium Hydrox/Alum Hydrox 30 Ml Oral.Susp) 30 ml PO Q6H PRN PRN Reason: Heartburn/Nausea Last Admin: 11/29/21 09:27 Dose: 30 ml Documented by: Albuterol Sulfate (Albuterol Sulfate 90 Mcg 8 Gm Inhaler) 1 puff INHALE RQ4H PRN PRN Reason: mild shortness of breath Last Admin: 11/29/21 20:17 Dose: 1 puff Documented by: Bismuth Subsalicylate (Bismuth Subsalicylate 262 Mg Tablet) 524 mg PO QID PRN PRN Reason: GI distress Last Admin: 11/25/21 02:41 Dose: 524 mg Documented by: Capsaicin (Capsaicin 0.025% Cream 60 Gm Tube) 1 appl TOPICAL QID PRN; Protocol PRN Reason: Pain, Moderate (Pain Scale 4-6 Last Admin: 11/30/21 08:55 Dose: 1 appl Documented by: Clonidine HCl (Clonidine Hcl 0.1 Mg Tablet) 0.3 mg PO BEDTIME [facility]; Protocol Ferrous Sulfate (Ferrous Sulfate 324 Mg Tablet.Dr) 324 mg PO DAILY [facility] Last Admin: 11/30/21 08:54 Dose: 324 mg Documented by: Fluticasone/Vilanterol (Fluticasone/Vilanterol 200/25 Blst.W.Dev) 1 puff INHALE RDAILY [facility] Last Admin: 11/30/21 10:13 Dose: Not Given Documented by: Gabapentin (Gabapentin 100 Mg Capsule) 200 mg PO BID [facility] Last Admin: 11/30/21 08:54 Dose: 200 mg Documented by: Hydroxyzine HCl (Hydroxyzine Hcl 25 Mg Tablet) 25 mg PO Q6H PRN PRN Reason: Anxiety Last Admin: 11/29/21 20:54 Dose: 25 mg Documented by: Ibuprofen (Ibuprofen 600 Mg Tablet) 600 mg PO ONCE ONE Stop: 11/30/21 12:57 [place] Carbonate ([place] Carbonate 300 Mg Capsule) 600 mg PO BID [facility] Last Admin: 11/30/21 08:54 Dose: 600 mg Documented by: Magnesium Citrate (Magnesium Citrate 300 Ml Solution) 300 ml PO DAILY PRN PRN Reason: constipation Magnesium Hydroxide (Milk Of Magnesia 30 Ml Oral.Susp) 30 ml PO DAILY PRN PRN Reason: Constipation Multi-Ingred Cream/Lotion/Oil/Oint (Mineral Oil/Petrolatum,White 106 Gm Tube) 1 appl TOPICAL BID [facility]; Protocol Last Admin: 11/30/21 08:55 Dose: 1 appl Documented by: Nicotine (Nicotine 21 Mg Patch.Td24) 21 mg TRANSDERMA DAILY [facility] Last Admin: 11/30/21 09:49 Dose: 21 mg Documented by: Olanzapine (Olanzapine 10 Mg Tablet) 10 mg PO BEDTIME [facility] Last Admin: 11/29/21 20:53 Dose: 10 mg Documented by: Omeprazole (Omeprazole 20 Mg Capsule.Dr) 20 mg PO DAILY@0630 [facility] Last Admin: 11/30/21 08:54 Dose: 20 mg Documented by: Oxcarbazepine (Oxcarbazepine 150 Mg Tablet) 150 mg PO BID [facility] Last Admin: 11/30/21 08:54 Dose: 150 mg Documented by: Quetiapine Fumarate (Quetiapine Fumarate 25 Mg Tablet) 25 mg PO BID PRN PRN Reason: anxiety Last Admin: 11/29/21 20:54 Dose: 25 mg Documented by: Ropinirole HCl (Ropinirole Hcl 0.5 Mg Tablet) 0.5 mg PO BEDTIME [facility] Last Admin: 11/29/21 20:54 Dose: 0.5 mg Documented by: Sertraline HCl (Sertraline Hcl 50 Mg Tablet) 50 mg PO DAILY [facility] Last Admin: 11/30/21 08:54 Dose: 50 mg Documented by: Simethicone (Simethicone 80 Mg Tab.Chew) 80 mg PO QIDWMHS PRN PRN Reason: gas relief Last Admin: 11/28/21 19:25 Dose: 80 mg Documented by: Trazodone HCl (Trazodone Hcl 100 Mg Tablet) 200 mg PO BEDTIME [facility] Last Admin: 11/29/21 20:54 Dose: 200 mg Documented by: Valacyclovir HCl (Valacycyclovir Hcl 1,000 Mg Tablet) 1,000 mg PO BID [facility] Last Admin: 11/30/21 08:54 Dose: 1,000 mg Documented by: Vitamin D (Cholecalciferol (Vitamin D3) 25 Mcg Tablet) 25 mcg PO DAILY [facility] Last Admin: 11/30/21 08:54 Dose: 25 mcg Documented by: Allergies Allergies Allergy/AdvReac Type Severity Reaction Status Date / Time aspirin [Aspirin] Allergy Severe HIVES,THROAT Verified 10/13/21 04:51 SWELLS bee pollen [BEE STINGS] Allergy Severe ANAPHYLAXIS Verified 10/13/21 04:51 diphenhydramine Allergy Severe hives, Verified 10/13/21 04:51 [From BENADRYL ALLERGY] throat swells Penicillins [PCN] Allergy Severe HIVES Verified 10/13/21 04:51 THROAT SWELLS Sulfa (Sulfonamide Allergy Intermediate HIVES Verified 10/13/21 04:51 Antibiotics) [SULFA (SULFONAMIDE ANTIBIOTICS)] tramadol [TRAMADOL] Allergy Intermediate ITCHING Verified 10/13/21 04:51 latex [LATEX] Allergy Unknown UNKNOWN Verified 10/13/21 04:51 penicillin G Allergy Unknown Unknown Verified 10/13/21 04:51 levofloxacin [From Levaquin] Allergy Hives Verified 10/13/21 04:51 bee stings Allergy Unknown Unknown Uncoded 10/13/21 04:51 DairyCare Allergy Unknown Unknown Uncoded 10/13/21 04:51 sulfa drugs Allergy Unknown Unknown Uncoded 10/13/21 04:51 Assessment & Plan Assessment & Plan (1) PTSD (post-traumatic stress disorder): Status: Acute Code(s): F43.10 - Post-traumatic stress disorder, unspecified Assessment and Plan: continue current regimen aside from increasing trazodone to 200 mg QHS as of 11/12, increasing prazosin to 5 mg QHS as of 11/12, increasing prazosin to 8 mg QHS as of 11/23, and increased zyprexa to 10 mg QHS as of 11/13.? prazosin taper initiated 11/24 due to pt c/o progressively worsening edema since admission. edema improving with prazosin taper, prazosin DCed 11/26, edema resolved as of 11/30. clonidine 0.1 mg QHS started 11/26 to replace the prazosin. clonidine increased to 0.2 mg QHS as of 11/27 due to poor sleep 11/26 tammie, on to 0.3 mg as of 11/30 tammie. Today, she agreed to have speech and swallow evaluation, order put (2) Borderline personality disorder: Status: Acute Code(s): F60.3 - Borderline personality disorder Assessment and Plan: brief stay if possible (3) Mass of parotid gland: Status: Acute Code(s): K11.8 - Other diseases of salivary glands Assessment and Plan: per surgery consult: She has a left parotid mass as described above.? Her CAT scan shows the cystic combination of cystic and solid components.? She already had a biopsy by ultrasound done last November 18, showing this to be parotitis. I will review the imaging studies as well as the path report with the radiologist.? I will see if she needs any further diagnostic workup at this time.? In view of the heterogenous appearance on imaging, we may need to continue to rule out for a neoplastic process down the line.? She will therefore need a head and neck surgeon for this. Again, I will review her imaging studies with the radiologist and we will follow her in the hospital and decide on next step in her care with regards to the parotid mass. per mamie, pt to F/U outpt with head and neck surgeon. (4) FABIOLA (obstructive sleep apnea): Status: Acute Code(s): G47.33 - Obstructive sleep apnea (adult) (pediatric) Assessment and Plan: per pulm consult: 51-year-old lady with underlying obesity, FABIOLA, asthma/COPD overlap syndrome hospitalized with psychiatric diagnosis noted to have intermittent hypoxic episodes.? Currently on Breo and nocturnal CPAP.? At this time her asthma/COPD symptoms appears to be well controlled on current regimen of Breo and albuterol MDI.? Intermittent hypoxic episodes appears to have resolved at this time and may have been related to over-sedation from psychiatric medications.? At this time there is no ongoing asthma or COPD exacerbation. Recommendations:? Continue with current regimen of Breo and albuterol MDI.? Continue with nocturnal CPAP.? Patient would benefit from outpatient pulmonary follow-up. (5) Carotid stenosis: Status: Acute Code(s): I65.29 - Occlusion and stenosis of unspecified carotid artery Assessment and Plan: outpt F/U (6) Abnormal EEG: Status: Acute Code(s): R94.01 - Abnormal electroencephalogram [EEG] Assessment and Plan: started trileptal 150 BID per neuro rec (7) Cocaine use disorder: Status: Acute Code(s): F14.10 - Cocaine abuse, uncomplicated Assessment and Plan: abstain Plan continue outpt meds aside from as noted above. plan to dispo to [facility] respite bed 11/14/2021 Continue current regimen and plans with no changes today 11/15/2021 Continue current plans and regimen.? No changes were made today 11/16- Pt desaturating in 88's when ambulating, visibly SOB, respiratory consult placed, may need Oxygen. no other concerns. 11/17 - place pulm consult for any Tx change recs.? liaison with onc for FNA of parotid mass.? otherwise continue current mgmt.? aftercare planning - [facility]. 11/18 - pulm recommends continuing present care and outpt F/U.? FNA done 11/18.? dispo pending. 11/19 - two episodes of what appeared to be pseudoseizures: brief episodes of altered consciousness. 11/20 - no further pseudoSz.? increasing prazosin to 6 mg tonight.? awaiting acceptance at [facility]. 11/21 and 11/22: no changes to primary? teams plan 11/23 - pathology results are non-malignant.? more c/w infection of salivary gland.? will F/U with Mamie.? pt reports she has been accepted to long-term care facility, dispo pending. 11/24 - surgery consult placed for infected salivary gland abscess.? application in at high view.? prazosin taper initiated due to edema. 11/25 - surgery to review radiology and consult with head and neck surgeon, perhaps, re mgmt. prazosin further tapered, edema decrease slightly per pt report. 11/26 - DC prazosin, start clonidine. to F/U with head and neck surgeon after discharge re parotid mass. 11/27 - clonidine up-titrated. 11/30 - clonidine up-titrated. I spent minutes with the patient and/or on the patient floor today, greater than?50% of which was spent counseling/coordinating care. Reason for contiued inpatient stay Substantial Risk for: inability to function and rapid decompensation
[2021-11-30] MEDS: Ibuprofen 600 MG TABLET PO (13:35)
--- NOTE | 2021-11-30 15:26 | PC.NURSE ---
Patient did have the swallow evaluation this morning. Patient was recommended by the speech therapist to be on total supervision during meals to aspiration precautions, monitor tolerance and provide cues as needed for aforementioned strategies.
--- NOTE | 2021-11-30 16:30 | MHC.SL.SWA ---
Speech Pathologist Impression: Oropharyngeal dysphagia Risk of Aspiration Due to: Choking episodes/ Limited dentition Dysphasia Diet Status: No Change Liquid Consistency and Strategies for Safe Swallow: Liquid Intake Recommendation: Thin Liquid Intake Strategies: Small Sips Solid Food Consistency: Dietary Recommendations: Chopped/Advanced (NDD3) Additional Modifications to Solid Foods: Patient had two choking episodes requiring heimlich maneuver 11/24 and 11/27. She was subsequently placed on ground foods. Bedside dysphagia evaluation was ordered 11/29 as patient is very unhappy with ground diet. Patient seen this afternoon for PO trials. Patient reports that she believes she had choked because she wasn't careful eating. SUBSTATION ENGINEER witnessed patient consume applesauce, rupali crackers, and thin liquid displaying no overt s/s of aspiration- no coughing or choking. Mildly prolonged oral phase 2nd to edentulous state, but with complete oral clearance of solids. Pharyngeal phase characterized by incomplete laryngeal elevation, but timely swallow. Discussed aspiration precautions at length with patient. Recommend for patient to have total 1:1 supervision during meals to monitor tolerance and provide cues as needed for following strategies for safe eating/drinking: -small bites of food -upright 90 degree position when eating/drinking and for 30 minutes afterwards -chew food well -moisten each bite with sauce/gravy -alternate bite of food with sip of liquid -do not take more bites until oral cavity is clear -minimize distractions during meals -avoid tough/hard foods, crumbly foods, dry foods -small, individual sips of liquid. SUBSTATION ENGINEER explained rationale for chopped diet with patient, but patient is very resistant. Discussed other option with patient during assessment and with MD via [place]- possible upgrade to REGULAR solids, but self-select SOFT/ EASY TO CHEW items only- MD opted to keep diet order as is. Patient on CHOPPED/ADVANCED (NDD3) solids and THIN liquids, recommend pills WHOLE or CRUSHED in PUREE. Strict aspiration precautions and total supervision. Oral Medication Intake: Whole with Liquid Compensatory Strategies and Precautions to be Taken for Safe Swallow: Sitting Upright (90 deg) Small Bites and Sips Alternate Liquids/Solids Rate of Ingestion Change Avoid Specific Foods Supervision While Eating and Drinking for Safe Swallow: Total Supervision (1:1) Foods to Avoid: Food to be served with sauce/gravy Avoid dry foods, crumbly foods, tough/hard foods Swallowing Recommended Treatments: Compens. Strategy Educat. Recommendation for Speech: Inpatient Speech Therapy Comment: SUBSTATION ENGINEER to continue to follow. Shipping Manager Clinican/Clinical Fellow: No Supervisory Statement: I have reviewed and agree with the student/clinical fellow's documentation: N/A Speech Language Pathologist: Amrita Craig M.A., [facility]-SUBSTATION ENGINEER
[2021-11-30] MEDS: traZODone HCL 100 MG TABLET 200 MG PO (20:49)
[2021-11-30] MEDS: QUEtiapine Fumarate 25 MG TABLET PO (20:49)
[2021-11-30] MEDS: OLANZapine 10 MG TABLET PO (20:49)
[2021-11-30] MEDS: rOPINIRole HCL 0.5 MG TABLET PO (20:50)
[2021-11-30] MEDS: hydrOXYzine HCL 25 MG TABLET PO (20:50)
[2021-11-30 21:03] VITALS: BP 145/73; PULSE 81; TEMP 36.6; O2SAT 92
[2021-11-30] MEDS: cloNIDine HCL 0.1 MG TABLET 0.3 MG PO (21:13)
[2021-12-01] MEDS: Simethicone 80 MG TAB.CHEW PO (03:15)
[2021-12-01] MEDS: Bismuth Subsalicylate 262 MG TABLET 524 MG PO (03:15)
[2021-12-01 06:00] VITALS: BP 122/58; PULSE 79; RESP 18; TEMP 36.2; O2SAT 95
[2021-12-01] MEDS: Acetaminophen 325 MG TABLET 975 MG PO ×3 (08:23→20:28)
[2021-12-01] MEDS: OXcarbazepine 150 MG TABLET PO ×2 (08:24→20:26)
[2021-12-01] MEDS: Cholecalciferol (Vitamin D3) 25 MCG TABLET PO (08:24)
[2021-12-01] MEDS: Gabapentin 100 MG CAPSULE 200 MG PO ×2 (08:25→20:27)
[2021-12-01] MEDS: Lithium Carbonate 300 MG CAPSULE 600 MG PO ×2 (08:25→20:27)
[2021-12-01] MEDS: Ferrous Sulfate 324 MG TABLET.DR PO (08:26)
[2021-12-01] MEDS: Sertraline HCL 50 MG TABLET PO (08:26)
[2021-12-01] MEDS: Fluticasone/Vilanterol 200/25 BLST.W.DEV 1 PUFF INHALE (08:26)
[2021-12-01] MEDS: Omeprazole 20 MG CAPSULE.DR PO (08:26)
[2021-12-01] MEDS: Nicotine 21 MG PATCH.TD24 TRANSDERMA (08:27)
[2021-12-01] MEDS: Mineral Oil/Petrolatum,White 106 GM Tube 1 APPL TOPICAL (09:52)
--- NOTE | 2021-12-01 10:53 | P.PNPSI_ITS ---
Subjective Subjective Date of Service: 12/01/21 Reason For Visit: mood disorder Interim History: pt reports she has been irritable, MD and pt discuss how to de-escalate with peers and go to staff with concerns about peers' behaviors. pt observed in the milieu shortly after interview implementing suggestions. pt adamant about being on a regular diet - neither cardiac nor chopped/soft diet. discuss the risks to her decision, including asphyxiation and , and pt accepts the risks and feels comfortable taking them. MD changes diet back to regular with normal consistency per pt request. pt reports sleep improved from prior but still having some nightmares and insomnia. agrees to increase clonidine to 0.4 mg at bedtime. per staff, no new information from half-way care facilities. swallow eval completed, chopped diet recommended. asking for regular diet. disrupted sleep, awaiting bed at long-term [facility] [place]. Mental Status Exam Mental Status Exam Narrative: visible in the milieu this morning. cooperative with interview. no PMA/PMR. speech nml in rate, amount. incr loudness, nml tone, decr latency. thoughts linear and logical. affect full range, normo-intense, non-labile, c/w context. no SI/HI/AVH expressed. Diagnostics Vital Signs (24Hr): Vital Signs - 24 hr 11/30/21 21:03 12/01/21 06:00 Temperature 97.8 F 97.2 F Pulse Rate 81 79 Respiratory Rate 18 Blood Pressure 145/73 H 122/58 L Pulse Oximetry 92 95 BMI result Verdana 4 Body Mass Index Verdana 4 55.0 Verdana 4 Verdana 4 Labs Results: 11/19/21 07:26 11/19/21 07:26 Imaging Radiology Impressions: ITS Impressions Chest CT 11/16/21 16:32 IMPRESSION: No acute abnormality CT scan of the chest. Fleischner guidelines were followed. Guidance Needle Placement Ultrasound 11/18/21 16:30 IMPRESSION: Ultrasound-guided core biopsy of left parotid mass. Salivary Gland Biopsy Ultrasound 11/18/21 16:30 IMPRESSION: Ultrasound-guided core biopsy of left parotid mass. Medications Medications Current Medications Acetaminophen (Acetaminophen 325 Mg Tablet) 975 mg PO TID TEJA Last Admin: 12/01/21 08:23 Dose: 975 mg Documented by: Al Hydroxide/Mg Hydroxide (Magnesium Hydrox/Alum Hydrox 30 Ml Oral.Susp) 30 ml PO Q6H PRN PRN Reason: Heartburn/Nausea Last Admin: 11/29/21 09:27 Dose: 30 ml Documented by: Albuterol Sulfate (Albuterol Sulfate 90 Mcg 8 Gm Inhaler) 1 puff INHALE RQ4H PRN PRN Reason: mild shortness of breath Last Admin: 11/29/21 20:17 Dose: 1 puff Documented by: Bismuth Subsalicylate (Bismuth Subsalicylate 262 Mg Tablet) 524 mg PO QID PRN PRN Reason: GI distress Last Admin: 12/01/21 03:15 Dose: 524 mg Documented by: Capsaicin (Capsaicin 0.025% Cream 60 Gm Tube) 1 appl TOPICAL QID PRN; Protocol PRN Reason: Pain, Moderate (Pain Scale 4-6 Last Admin: 11/30/21 20:51 Dose: 1 appl Documented by: Clonidine HCl (Clonidine Hcl 0.2 Mg Tablet) 0.4 mg PO BEDTIME [facility]; Protocol Ferrous Sulfate (Ferrous Sulfate 324 Mg Tablet.) 324 mg PO DAILY [facility] Last Admin: 12/01/21 08:26 Dose: 324 mg Documented by: Fluticasone/Vilanterol (Fluticasone/Vilanterol 200/25 Blst.W.Dev) 1 puff INHALE RDAILY [facility] Last Admin: 12/01/21 08:26 Dose: 1 puff Documented by: Gabapentin (Gabapentin 100 Mg Capsule) 200 mg PO BID [facility] Last Admin: 12/01/21 08:25 Dose: 200 mg Documented by: Hydroxyzine HCl (Hydroxyzine Hcl 25 Mg Tablet) 25 mg PO Q6H PRN PRN Reason: Anxiety Last Admin: 11/30/21 20:50 Dose: 25 mg Documented by: [place] Carbonate ([place] Carbonate 300 Mg Capsule) 600 mg PO BID [facility] Last Admin: 12/01/21 08:25 Dose: 600 mg Documented by: Magnesium Citrate (Magnesium Citrate 300 Ml Solution) 300 ml PO DAILY PRN PRN Reason: constipation Magnesium Hydroxide (Milk Of Magnesia 30 Ml Oral.Susp) 30 ml PO DAILY PRN PRN Reason: Constipation Multi-Ingred Cream/Lotion/Oil/Oint (Mineral Oil/Petrolatum,White 106 Gm Tube) 1 appl TOPICAL BID TEJA; Protocol Last Admin: 12/01/21 09:52 Dose: 1 appl Documented by: Nicotine (Nicotine 21 Mg Patch.Td24) 21 mg TRANSDERMA DAILY [facility] Last Admin: 12/01/21 08:27 Dose: 21 mg Documented by: Olanzapine (Olanzapine 10 Mg Tablet) 10 mg PO BEDTIME [facility] Last Admin: 11/30/21 20:49 Dose: 10 mg Documented by: Omeprazole (Omeprazole 20 Mg Capsule.Dr) 20 mg PO DAILY@0630 [facility] Last Admin: 12/01/21 08:26 Dose: 20 mg Documented by: Oxcarbazepine (Oxcarbazepine 150 Mg Tablet) 150 mg PO BID [facility] Last Admin: 12/01/21 08:24 Dose: 150 mg Documented by: Quetiapine Fumarate (Quetiapine Fumarate 25 Mg Tablet) 25 mg PO BID PRN PRN Reason: anxiety Last Admin: 11/30/21 20:49 Dose: 25 mg Documented by: Ropinirole HCl (Ropinirole Hcl 0.5 Mg Tablet) 0.5 mg PO BEDTIME [facility] Last Admin: 11/30/21 20:50 Dose: 0.5 mg Documented by: Sertraline HCl (Sertraline Hcl 50 Mg Tablet) 50 mg PO DAILY [facility] Last Admin: 12/01/21 08:26 Dose: 50 mg Documented by: Simethicone (Simethicone 80 Mg Tab.Chew) 80 mg PO QIDWMHS PRN PRN Reason: gas relief Last Admin: 12/01/21 03:15 Dose: 80 mg Documented by: Trazodone HCl (Trazodone Hcl 100 Mg Tablet) 200 mg PO BEDTIME [facility] Last Admin: 11/30/21 20:49 Dose: 200 mg Documented by: Valacyclovir HCl (Valacycyclovir Hcl 1,000 Mg Tablet) 1,000 mg PO BID [facility] Last Admin: 12/01/21 08:25 Dose: 1,000 mg Documented by: Vitamin D (Cholecalciferol (Vitamin D3) 25 Mcg Tablet) 25 mcg PO DAILY [facility] Last Admin: 12/01/21 08:24 Dose: 25 mcg Documented by: Allergies Allergies Allergy/AdvReac Type Severity Reaction Status Date / Time aspirin [Aspirin] Allergy Severe HIVES,THROAT Verified 10/13/21 04:51 SWELLS bee pollen [BEE Allergy Severe ANAPHYLAXIS Verified 10/13/21 04:51 STINGS] diphenhydramine Allergy Severe hives, Verified 12/14/21 04:51 [From BENADRYL throat ALLERGY] swells Penicillins [PCN] Allergy Severe HIVES Verified 10/13/21 04:51 THROAT SWELLS Sulfa Allergy Intermediate HIVES Verified 10/13/21 04:51 (Sulfonamide Antibiotics) [SULFA (SULFONAMIDE ANTIBIOTICS)] tramadol Allergy Intermediate ITCHING Verified 10/13/21 04:51 [TRAMADOL] latex [LATEX] Allergy Unknown UNKNOWN Verified 10/13/21 04:51 penicillin G Allergy Unknown Unknown Verified 10/13/21 04:51 levofloxacin Allergy Hives Verified 10/13/21 04:51 [From Levaquin] bee stings Allergy Unknown Unknown Uncoded 10/13/21 04:51 DairyCare Allergy Unknown Unknown Uncoded 10/13/21 04:51 sulfa drugs Allergy Unknown Unknown Uncoded 10/13/21 04:51 Assessment & Plan Assessment & Plan (1) PTSD (post-traumatic stress disorder): Status: Acute Code(s): F43.10 - Post-traumatic stress disorder, unspecified Assessment and Plan: continue current regimen aside from increasing trazodone to 200 mg QHS as of 11/12, increasing prazosin to 5 mg QHS as of 11/12, increasing prazosin to 8 mg QHS as of 11/23, and increased zyprexa to 10 mg QHS as of 11/13.? prazosin taper initiated 11/24 due to pt c/o progressively worsening edema since admission. edema improving with prazosin taper, prazosin DCed 11/26, edema resolved as of 11/30. clonidine 0.1 mg QHS started 11/26 to replace the prazosin. clonidine increased to 0.2 mg QHS as of 11/27 due to poor sleep 11/26 tammie, on to 0.3 mg as of 11/30 tammie, to 0.4 mg QHS as of 12/01. (2) Borderline personality disorder: Status: Acute Code(s): F60.3 - Borderline personality disorder Assessment and Plan: brief stay if possible (3) Mass of parotid gland: Status: Acute Code(s): K11.8 - Other diseases of salivary glands Assessment and Plan: per surgery consult: She has a left parotid mass as described above.? Her CAT scan shows the cystic combination of cystic and solid components.? She already had a biopsy by ultrasound done last November 18, showing this to be parotitis. I will review the imaging studies as well as the path report with the radiologist.? I will see if she needs any further diagnostic workup at this time.? In view of the heterogenous appearance on imaging, we may need to continu e to rule out for a neoplastic process down the line.? She will therefore need a head and neck surgeon for this. Again, I will review her imaging studies with the radiologist and we will follow her in the hospital and decide on next step in her care with regards to the parotid mass. per mamie, pt to F/U outpt with head and neck surgeon. (4) FABIOLA (obstructive sleep apnea): Status: Acute Code(s): G47.33 - Obstructive sleep apnea (adult) (pediatric) Assessment and Plan: per pulm consult: 51-year-old lady with underlying obesity, FABIOLA, asthma/COPD overlap syndrome hospitalized with psychiatric diagnosis noted to have intermittent hypoxic episodes.? Currently on Breo and nocturnal CPAP.? At this time her asthma/COPD symptoms appears to be well controlled on current regimen of Breo and albuterol MDI.? Intermittent hypoxic episodes appears to have resolved at this time and may have been related to over-sedation from psychiatric medications.? At this time there is no ongoing asthma or COPD exacerbation. Recommendations:? Continue with current regimen of Breo and albuterol MDI.? Continue with nocturnal CPAP.? Patient would benefit from outpatient pulmonary follow-up. (5) Carotid stenosis: Status: Acute Code(s): I65.29 - Occlusion and stenosis of unspecified carotid artery Assessment and Plan: outpt F/U (6) Abnormal EEG: Status: Acute Code(s): R94.01 - Abnormal electroencephalogram [EEG] Assessment and Plan: started trileptal 150 BID per neuro rec (7) Cocaine use disorder: Status: Acute Code(s): F14.10 - Cocaine abuse, uncomplicated Assessment and Plan: abstain Plan continue outpt meds aside from as noted above. plan to dispo to [facility] respite bed 11/14/2021 Continue current regimen and plans with no changes today 11/15/2021 Continue current plans and regimen.? No changes were made today 11/16- Pt desaturating in 88's when ambulating, visibly SOB, respiratory consult placed, may need Oxygen. no other concerns. 11/17 - place pulm consult for any Tx change recs.? liaison with onc for FNA of parotid mass.? otherwise continue current mgmt.? aftercare planning - [facility]. 11/18 - pulm recommends continuing present care and outpt F/U.? FNA done 11/18.? dispo pending. 11/19 - two episodes of what appeared to be pseudoseizures: brief episodes of altered consciousness. 11/20 - no further pseudoSz.? increasing prazosin to 6 mg tonight.? awaiting acceptance at [facility]. 11/21 and 11/22: no changes to primary? teams plan 11/23 - pathology results are non-malignant.? more c/w infection of salivary gland.? will F/U with Mamie.? pt reports she has been accepted to long-term care facility, dispo pending. 11/24 - surgery consult placed for infected salivary gland abscess.? application in at [facility].? prazosin taper initiated due to edema. 11/25 - surgery to review radiology and consult with head and neck surgeon, perhaps, re mgmt. prazosin further tapered, edema decrease slightly per pt report. 11/26 - DC prazosin, start clonidine. to F/U with head and neck surgeon after discharge re parotid mass. 11/27 - clonidine up-titrated. 11/30 - clonidine up-titrated. 12/01 - clonidine up-titrated. I spent minutes with the patient and/or on the patient floor today, greater than?50% of which was spent counseling/coordinating care. Reason for contiued inpatient stay Substantial Risk for: inability to function and rapid decompensation
--- NOTE | 2021-12-01 15:07 | MHC.SL.SWA ---
Speech Pathologist Impression: Risk of Aspiration Due to: Dysphasia Diet Status: No Change Liquid Consistency and Strategies for Safe Swallow: Liquid Intake Recommendation: Thin Liquid Intake Strategies: Small Sips Solid Food Consistency: Dietary Recommendations: Chopped/Advanced (NDD3) Additional Modifications to Solid Foods: Avoid difficult to chew foods, varied consistencies Oral Medication Intake: Whole with Liquid Compensatory Strategies and Precautions to be Taken for Safe Swallow: Sitting Upright (90 deg) Liquids from Cup Alternate Liquids/Solids Rate of Ingestion Change Supervision While Eating and Drinking for Safe Swallow: Total Supervision (1:1) Foods to Avoid: Food to be served with sauce/gravy Avoid dry foods, crumbly foods, tough/hard foods Swallowing Recommended Treatments: Compens. Strategy Educat. Recommendation for Speech: Inpatient Speech Therapy:Pt was seen during lunch on jama. Pt was just finishing 2nd burger, had coffee for drink. Pt had removed lettuce and onion from burger reporting I would choke on that. Pt was observed taking bite of burger, producing prolonged oral phase, normal swallow trigger, no clinical s/s aspiration or distress/choking on swallow. Pt took sips of coffee, w/ oral and pharyngeal phase WNL. Pt appears to be tolerating diet well, taking precautions on foods that she may have difficulty with. Continue on current diet. [employer] to f/u X1 for toleration. Comment: [employer] to continue to follow. Frequency/Duration: Date Range for Service Req: Timeline to reassess: [place] Clinican/Clinical Fellow: No Supervisory Statement: I have reviewed and agree with the student/clinical fellow's documentation: N/A Speech Language Pathologist: Shreya Burger M.A., [facility] PROFESSIONAL
[2021-12-01] MEDS: hydrOXYzine HCL 25 MG TABLET PO (16:14)
[2021-12-01 20:15] VITALS: BP 131/69; PULSE 82; RESP 18; TEMP 36.8; O2SAT 94
[2021-12-01] MEDS: rOPINIRole HCL 0.5 MG TABLET PO (20:26)
[2021-12-01] MEDS: traZODone HCL 100 MG TABLET 200 MG PO (20:27)
[2021-12-01] MEDS: OLANZapine 10 MG TABLET PO (20:27)
[2021-12-01] MEDS: cloNIDine HCL 0.2 MG TABLET 0.4 MG PO (20:28)
[2021-12-01] MEDS: Capsaicin 0.025% Cream 60 GM TUBE 1 APPL TOPICAL (20:30)
[2021-12-01] MEDS: Albuterol Sulfate 90 MCG 8 GM INHALER 1 PUFF INHALE (20:55)
[2021-12-02] MEDS: QUEtiapine Fumarate 25 MG TABLET PO (03:27)
[2021-12-02] MEDS: hydrOXYzine HCL 25 MG TABLET PO (03:27)
[2021-12-02] MEDS: Omeprazole 20 MG CAPSULE.DR PO (06:12)
[2021-12-02 08:54] VITALS: BP 138/77; PULSE 71; RESP 16; TEMP 36.8; O2SAT 94
[2021-12-02] MEDS: Fluticasone/Vilanterol 200/25 BLST.W.DEV 1 PUFF INHALE (08:59)
[2021-12-02] MEDS: Nicotine 21 MG PATCH.TD24 TRANSDERMA (09:00)
[2021-12-02] MEDS: Cholecalciferol (Vitamin D3) 25 MCG TABLET PO (09:00)
[2021-12-02] MEDS: Acetaminophen 325 MG TABLET 975 MG PO ×2 (09:00→13:49)
[2021-12-02] MEDS: OXcarbazepine 150 MG TABLET PO (09:00)
[2021-12-02] MEDS: Gabapentin 100 MG CAPSULE 200 MG PO (09:00)
[2021-12-02] MEDS: Lithium Carbonate 300 MG CAPSULE 600 MG PO (09:01)
[2021-12-02] MEDS: Ferrous Sulfate 324 MG TABLET.DR PO (09:01)
[2021-12-02] MEDS: Sertraline HCL 50 MG TABLET PO (09:01)
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
--- NOTE | 2021-12-02 13:44 | MHC.SLORD ---
Addendum entered and electronically signed by Alexandra Martin MA, CCC-IN FLIGHT TECHNICIAN 12/02/21 13:56: She is ready to be discontinued from [employer] FLIGHT TECHNICIAN follow-up at this time. Original Note: Speech Language Pathology Order Status: patient seen in the rec dowd with toleration of regular and thin without s/s of aspiration
--- NOTE | 2021-12-02 14:36 | PC.NURSE ---
PT ready and aware of discharge. Pt with bright affect and future focused. Pt denied SI/HI, denied depression, continued to report some anxiety due to her medical issues. Discharge instructions discussed, all questions answered. Belongings returned. Pt ambulated off unit with steady gait using her walker.
== END 2021-12-02 14:36 | disposition home or self-care (01) | DRG 752 ==
LOC: HO.ED 11-09 19:59 → HO.PADLT16 11-09 20:01
PROVIDERS: Physician Assistant; Registered Nurse; Admitting Provider Psychiatry & Neurology Psychiatry; Emergency Provider Internal Medicine; Visit Provider Psychiatry & Neurology Psychiatry
DX: F60.3 Borderline personality disorder (principal); R45.851 Suicidal ideations; Z68.43 Body mass index [BMI] 50.0-59.9, adult; E66.9 Obesity, unspecified; F14.19 Cocaine abuse with unspecified cocaine-induced disorder; F17.210 Nicotine dependence, cigarettes, uncomplicated; Z20.822 Contact with and (suspected) exposure to COVID-19; Z71.6 Tobacco abuse counseling; I65.29 Occlusion and stenosis of unspecified carotid artery; R94.01 Abnormal electroencephalogram [EEG]; F43.10 Post-traumatic stress disorder, unspecified; G47.33 Obstructive sleep apnea (adult) (pediatric); K11.20 Sialoadenitis, unspecified; Z88.0 Allergy status to penicillin; Z88.2 Allergy status to sulfonamides; Z59.02 Unsheltered homelessness; Z88.6 Allergy status to analgesic agent; Z91.040 Latex allergy status; Z79.51 Long term (current) use of inhaled steroids; Z79.899 Other long term (current) drug therapy
CPT/HCPCS: 36415; 42400; 71250; 76942; 80048; 80053; 80061; 80178; 80307; 82077; 82607; 82746; 82947; 83036; 83735; 84439; 84443; 85025; 87635; 88112; 88173; 88304; 88305; 92526; 92610; 93005; 94660; 97162; 99285

== ENCOUNTER 2022-01-08 19:08 | Inpatient (IN) | payer MEDICAID, SELFPAY ==
--- NOTE | ~2022-01-08 | XR_ITS ---
EXAMINATION: PORTABLE CHEST 1 VIEW CLINICAL INFORMATION: sob . COMPARISON: 10/21/2021. TECHNIQUE: Portable frontal view of the chest was obtained. FINDINGS: The lungs are well expanded. Chronic appearing peribronchial cuffing seen bilaterally but no superimposed focal infiltrate, effusion, edema, or pneumothorax. Cardiac and mediastinal silhouettes are within normal limits for technique. No acute bony abnormality seen. XR/XR chest 1V IMPRESSION: Peribronchial cuffing bilaterally could be seen in the setting of underlying reactive or small airways disease. No dense consolidation or focal infiltrate appreciated.
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
[2022-01-08] MEDS: Albuterol/Iprat 2.5/0.5MG 3 ML AMPUL.NEB INHALE ×3 (19:29→21:35)
[2022-01-08 19:30] VITALS: PULSE 84; RESP 18; O2SAT 91
[2022-01-08 19:46] LABS: MANUAL DIFF FLAG NO
[2022-01-08 19:47] LABS: Basophils Percent Auto 0.3 % (0-2); Eosinophils Absolute Auto 0.1 X10*3/uL (0.0-0.4); Hematocrit 40.2 % (37.0-47.0); Hemoglobin 12.8 g/dl (12.0-16.0); Imm Gran Abs Auto 0.07 X10*3/uL (0.00-0.03); Imm Gran Pct Auto 0.8 % (0.0-0.4); Lymphocytes Absolute Auto 3.5 X10*3/uL (1.2-4.9); Lymphocytes Percent Auto 38.3 % (20-40); Mean Corpuscular HGB Conc 31.8 g/dl (31.0-35.0); Mean Corpuscular Volume 94.4 fL (80.0-98.0); Mean Platelet Volume 9.5 fL (9.4-12.3); Monocytes Absolute Auto 0.6 X10*3/uL (0.1-1.2); Monocytes Percent Auto 6.4 % (2-11); NRBC Pct Auto 0.2 /100WBC (0.0-0.2); Neutrophils Absolute Auto 4.9 x10*3/uL (2.0-8.3); Neutrophils Percent Auto 53.2 % (45-73); Platelet Count 293 X10*3/uL (160-400); Red Blood Count 4.26 X10*6/uL (4.20-5.50); Red Cell Distribution Width 13.3 % (11.0-16.0); White Blood Count 9.2 X10*3/uL (4.8-10.8)
[2022-01-08 19:51] VITALS: BP 122/68; BP 132/90; PULSE 77; PULSE 84; RESP 19; TEMP 36.8; O2SAT 92; BMI 40.7
[2022-01-08 20:04] LABS: COVID-19 Test Negative (Negative)
[2022-01-08 20:14] VITALS: PULSE 88; RESP 20; O2SAT 92
[2022-01-08 20:33] LABS: Alanine Aminotransferase 18 U/L (0-31); Albumin Level 4.3 g/dL (3.5-5.0); Alkaline Phosphatase 70 U/L (39-117); Anion Gap 11 (12-20); Aspartate Amino Transferase 14 U/L (5-31); Bilirubin Total 0.3 mg/dL (0.0-1.0); Blood Urea Nitrogen 11 mg/dL (9-16); Carbon Dioxide 35 mmol/L (22-29); Chloride 100 mmol/L (96-108); Creatinine Clr Calc Pharmacy 119.8; Estimated Glomerular Filt Rate > 60; Glucose Random 77 mg/dL (60-115); Magnesium 2.4 mg/dL (1.6-2.6); Sodium 141 mmol/L (135-145)
[2022-01-08 20:40] LABS: Appearance Urine CLEAR; Color Urine YELLOW; Glucose Urine UA NEG (NEG); Leukocyte Esterase Urine TRACE (NEG); Nitrite Urine NEG (NEG); PH 5.5 (5.0-8.0); Specific Gravity - Urine >= 1.030 (1.005-1.025); UACC Culture Trigger YES; Urine Blood NEG (NEG); Urine Ketones 5 MG/DL (NEG); Urine Protein TRACE MG/DL (NEG-TRACE)
[2022-01-08] MEDS: methylPREDNISolone Sod Succ 125 MG/2 ML VIAL IVPUSH (20:54)
[2022-01-08] MEDS: Magnesium Sulfate/H2O 2 GM/50 ML PIGGYBACK IV (20:54)
[2022-01-08 20:55] LABS: Bacteria Urine 1+ /LPF; Squamous Epithelial Cell Urine 1+ /LPF
[2022-01-08 20:56] LABS: Trichomonas Urine NOTED
[2022-01-08 20:57] LABS: Mucus Urine 1+ /LPF
[2022-01-08 20:58] LABS: Calcium Oxalate Crystals Urine TRACE /LPF
[2022-01-08 21:35] VITALS: PULSE 82; RESP 18; O2SAT 94
[2022-01-08 21:42] LABS: VBG Base Excess 8.8 mmol/L; VBG HCO3 35 mmol/L (22-26); VBG pCO2 57 mmHg; VBG pO2 37 mmHg
[2022-01-08 21:44] LABS: Venous Blood Gas Refer to POC result
[2022-01-08 21:56] LABS: Influenza A Negative (Negative); Influenza B2 Negative (Negative)
--- NOTE | 2022-01-08 23:08 | PM.IMHP ---
History of Present Illness Date of Service: 01/08/22 Chief Complaint: SOB, cough this is a 52-year-old female with past medical history of COPD /asthma, bipolar disorder, FABIOLA, PTSD, tobacco use disorder who presents to the hospital with complaints of worsening shortness of breath and cough. Patient reports that she was recently admitted and discharged from [facility] for management of COPD exacerbation secondary to influenza, on discharge 2 days ago patient felt better with her symptoms improved but about a day ago she once again developed worsening shortness of breath cough and sputum production. Patient is also complaining of more than 8 episodes of watery diarrhea, she denies any chest pain, no palpitations, no fever or chills. No abdominal pain no nausea or vomiting, she is complaining of urinary frequency that is been going on for 2 days, no urgency or dysuria. She has no lower extremity edema. note patient was sent home on prednisone from [facility] which patient reports compliance with On arrival to the ED patient was found to be hypoxic satting around 85-87%. Currently placed on 2 L of oxygen satting between 89-92% Labs are significant for WBC count of 9.2, potassium of 5.0, UA positive for leukocyte esterase and some WBC, influenza A/B negative. COVID-19 negative chest x-ray shows peribronchial cuffing bilaterally can be seen in the setting of underlying reactive small airway disease [facility] Medical History Asthma exacerbation in COPD Bipolar disorder Bipolar I disorder Borderline personality disorder Borderline personality disorder COPD (chronic obstructive pulmonary disease) Depression Drug abuse Herpes Intermittent explosive disorder Mass of parotid gland FABIOLA (obstructive sleep apnea) Post traumatic stress disorder (PTSD) PTSD (post-traumatic stress disorder) PTSD (post-traumatic stress disorder) Tobacco use Family History Mother COPD (chronic obstructive pulmonary disease) Surgical History History of ankle surgery History of appendectomy History of back surgery Hx of cholecystectomy Social History Household Members: None Household Members Other:: Pt states she hangs out with a male friend and a female friend Housing: Homeless Housing Other:: will be getting apartment 07/01 Do you presently have visiting nurse or other home services: No Unable to assess alcohol history related to: Unknown Alcohol intake: never Patient Tobacco Use Status: Current everyday Tobacco user Tobacco use type: Cigarette Cigarette Packs Per Day: 0.5 Cigarettes Per Day: 10.0 Years Smoked: 37 e-Cigarette/Vaping Use: Never Used Second Hand Smoke Exposure: Yes Substance Use Type: Crack/Cocaine Advance Directives: Yes Advance Directives on File: Yes Advance Directives Date on File: 12/24/20 Patient : No service: No Current occupational status: unemployed and disabled Sexual orientation: Don't Know Meds Allergies Allergy/AdvReac Type Severity Reaction Status Date / Time aspirin [Aspirin] Allergy Severe HIVES,THROAT Verified 10/13/21 04:51 SWELLS bee pollen [BEE STINGS] Allergy Severe ANAPHYLAXIS Verified 10/13/21 04:51 diphenhydramine Allergy Severe hives, Verified 10/13/21 04:51 [From BENADRYL ALLERGY] throat swells Penicillins [PCN] Allergy Severe HIVES Verified 10/13/21 04:51 THROAT SWELLS Sulfa (Sulfonamide Allergy Intermediate HIVES Verified 10/13/21 04:51 Antibiotics) [SULFA (SULFONAMIDE ANTIBIOTICS)] tramadol [TRAMADOL] Allergy Intermediate ITCHING Verified 10/13/21 04:51 latex [LATEX] Allergy Unknown UNKNOWN Verified 10/13/21 04:51 penicillin G Allergy Unknown Unknown Verified 10/13/21 04:51 levofloxacin [From Levaquin] Allergy Hives Verified 10/13/21 04:51 bee stings Allergy Unknown Unknown Uncoded 10/13/21 04:51 DairyCare Allergy Unknown Unknown Uncoded 10/13/21 04:51 sulfa drugs Allergy Unknown Unknown Uncoded 10/13/21 04:51 Active Medications: Current Medications Acetaminophen (Acetaminophen 325 Mg Tablet) 650 mg PO Q6H PRN PRN Reason: Pain, Mild (Pain Scale 1-3) Albuterol/Ipratropium (Albuterol/Iprat 2.5/0.5mg 3 Ml Ampul.Neb) 3 ml INHALE RQ4H PRN PRN Reason: Shortness of Breath/Wheezing Albuterol/Ipratropium (Albuterol/Iprat 2.5/0.5mg 3 Ml Ampul.Neb) 3 ml INHALE RQ4H WHILE AWAKE TEJA Enoxaparin Sodium (Enoxaparin Sodium 40 Mg/0.4 Ml Syringe) 40 mg SUBCUT Q24H [facility] Guaifenesin/Dextromethorphan (Guaifenesin Dm 100/10/5 Ml 5 Ml Syrup) 5 ml PO Q4H PRN PRN Reason: cough Ceftriaxone Sodium 1 gm/ (Sodium Chloride) 50 mls @ 100 mls/hr IV Q24H [facility] Methylprednisolone Sodium Succinate (Methylprednisolone Sod Succ 40 Mg/Ml Vial) 40 mg IVPUSH Q12H [facility] Ondansetron HCl (Ondansetron Hcl 4 Mg/2 Ml Vial) 4 mg IVPUSH Q8H PRN PRN Reason: Nausea and Vomiting Pharmacy Consult (Consult Rx Perform Med Rec) 1 each MISCELLANE ONCE PRN PRN Reason: Consult order Sodium Chloride (0.9 % Sodium Chloride Flush 3 Ml Syringe) 3 ml IVFLUSH QSHIFT [facility] Home Medications Medication Instructions Recorded Confirmed Last Taken Type Flovent Diskus 100 mcg INHALATION DAILY 01/09/22 01/09/22 Unknown History gabapentin 100 mg capsule 100 mg PO BID 01/09/22 01/09/22 Unknown History lithium carbonate 300 mg capsule 300 mg PO BID 01/09/22 01/09/22 Unknown History olanzapine 10 mg tablet 5 mg PO BEDTIME 01/09/22 01/09/22 Unknown History oseltamivir 75 mg PO BID 01/09/22 01/09/22 Unknown History trazodone 100 mg tablet 100 mg PO BEDTIME 01/09/22 01/09/22 Unknown History Physical Exam Vital Signs and Narrative: Vital Signs: Last Vital Signs Temp 98.2 F 01/08/22 19:51 Pulse 82 01/08/22 21:35 Resp 18 01/08/22 21:35 BP 122/68 01/08/22 19:51 Pulse Ox 92 01/08/22 19:51 Oxygen Flow Rate 2 01/08/22 19:51 BMI result Body Mass Index 40.7 Const: General: cooperative and no acute distress Orientation/consciousness: patient oriented x3 Eyes: General: appearance normal, both eyes and all related structures Pupils: Equal, round and reactive pupils present Resp: Other: distant breath sounds Effort & Inspection: normal respiratory effort Cardio: Rate: regular rate Rhythm: regular rhythm GI: Palpation (GI): Soft to palpation Auscultation: normal bowel sounds Skin: General skin exam: no rashes or lesions noted Neuro: General: patient oriented x3 Cranial nerves: Yes Equal, round and reactive pupils present Cognition (Neuro): normal cognition Extrem: General: Yes normal to inspection and Yes no pedal edema Results Labs CBC and Chem 7: 01/09/22 06:48 01/09/22 06:48 Labs: Laboratory Results - last 24 hr 01/08/22 01/08/22 01/08/22 19:41 19:41 19:41 MCV 94.4 MCH 30.0 MCHC 31.8 RDW 13.3 Plt Count 293 D MPV 9.5 Immature Gran % (Auto) 0.8 H Neut % (Auto) 53.2 Lymph % (Auto) 38.3 [place] % (Auto) 6.4 Eos % (Auto) 1.0 Baso % (Auto) 0.3 Lymph # (Auto) 3.5 [place] # (Auto) 0.6 Eos # (Auto) 0.1 Baso # (Auto) 0.0 Abs Immat Gran (auto) 0.07 H Absolute Neuts (auto) 4.9 Absolute Nucleated RBC 0.020 H Nucleated RBC % (auto) 0.2 VBG pH VBG pCO2 VBG pO2 VBG HCO3 VBG O2 Saturation VBG Base Excess Anion Gap 11 L Estim Creat Clear Calc 119.8 Estimated GFR > 60 Random Glucose 77 Calcium 10.0 Magnesium 2.4 Total Bilirubin 0.3 AST 14 ALT 18 Alkaline Phosphatase 70 Total Protein 7.0 Albumin 4.3 Urine Color Urine Appearance Urine pH Ur Specific [place] Urine Protein Urine Glucose (UA) Urine Ketones Urine Blood Urine Nitrite Ur Leukocyte Esterase Urine RBC Urine WBC Ur Squamous Epith Cells Calcium Oxalate Crystal Urine Bacteria Urine Mucus Urine Trichomonas COVID-19 (ENDY) Negative COVID-19 Clin Com See Note Influenza Type A (KELY) Influenza Type B (KELY) Influenza A & B Note 01/08/22 01/08/22 01/08/22 20:31 21:33 21:36 MCV MCH MCHC RDW Plt Count MPV Immature Gran % (Auto) Neut % (Auto) Lymph % (Auto) [place] % (Auto) Eos % (Auto) Baso % (Auto) Lymph # (Auto) [place] # (Auto) Eos # (Auto) Baso # (Auto) Abs Immat Gran (auto) Absolute Neuts (auto) Absolute Nucleated RBC Nucleated RBC % (auto) VBG pH 7.40 VBG pCO2 57 VBG pO2 37 VBG HCO3 35 H VBG O2 Saturation 51.0 VBG Base Excess 8.8 Anion Gap Estim Creat Clear Calc Estimated GFR Random Glucose Calcium Magnesium Total Bilirubin AST ALT Alkaline Phosphatase Total Protein Albumin Urine Color YELLOW Urine Appearance CLEAR Urine pH 5.5 Ur Specific [place] >= 1.030 H Urine Protein TRACE Urine Glucose (UA) NEG Urine Ketones 5 Urine Blood NEG Urine Nitrite NEG Ur Leukocyte Esterase TRACE H Urine RBC 1-4 Urine WBC 1-4 Ur Squamous Epith Cells 1+ Calcium Oxalate Crystal TRACE Urine Bacteria 1+ Urine Mucus 1+ Urine Trichomonas NOTED COVID-19 (ENDY) COVID-19 Clin Com Influenza Type A (KELY) Negative Influenza Type B (KLEY) Negative Influenza A & B Note See Note Imaging Radiologist's Impressions: Impressions Chest X-Ray 01/08/22 19:25 IMPRESSION: Peribronchial cuffing bilaterally could be seen in the setting of underlying reactive or small airways disease. No dense consolidation or focal infiltrate appreciated. Assessment and Plan (1) Acute exacerbation of COPD with asthma: Status: Acute (2) Diarrhea: Status: Acute Plan 52-year-old female with past medical history of COPD presents to the hospital with increased cough shortness of breath as well as sputum production found to be hypoxic # acute on chronic hypoxic respiratory failure - secondary to COPD exacerbation - satting 87-89% on room air, currently on 2 L satting 89-92% - recent infection with influenza - will treat with DuoNeb, Solu-Medrol - O2 as required - monitor respiratory status - will also add azithromycin given her severe symptoms # diarrhea - likely secondary to viral infection - will rule out C diff - supportive measures # continue on her other home medications DVT prophylaxis: Lovenox Quality Stroke Does the patient have a stroke diagnosis?: No VTE Prior VTE?: No VTE Risk Level:: Medical - moderate - high VTE Device Contraindication: Treatment Not Indicated VTE Drug Contraindication: N/A - Med Ordered
[2022-01-09] VITALS (8 sets, daily range): BP systolic 117–138; BP diastolic 69–79; PULSE 76–93; RESP 16–28; TEMP 36.7–37.1; O2SAT 89–94
[2022-01-09 00:24] LABS: Troponin-I High Sensitivity < 3.5 ng/L (<3.5-17.0)
[2022-01-09] MEDS: cefTRIAXone sodium 1 GM in 0.9 % Sodium Chloride 50 ML IV (00:42)
--- NOTE | 2022-01-09 01:00 | PC.NURSE ---
REPORT CALLED TO [facility] IN OVERFLOW UNIT. PT TRANSPORTED IN BED.
[2022-01-09] MEDS: 0.9 % Sodium Chloride Flush 3 ML SYRINGE IVFLUSH ×3 (01:23→18:28)
[2022-01-09 07:12] LABS: MANUAL DIFF FLAG NO
[2022-01-09 07:18] LABS: Basophils Percent Auto 0.4 % (0-2); Hematocrit 39.9 % (37.0-47.0); Hemoglobin 12.6 g/dl (12.0-16.0); Imm Gran Abs Auto 0.06 X10*3/uL (0.00-0.03); Imm Gran Pct Auto 0.7 % (0.0-0.4); Lymphocytes Absolute Auto 1.2 X10*3/uL (1.2-4.9); Lymphocytes Percent Auto 13.8 % (20-40); Mean Corpuscular HGB Conc 31.6 g/dl (31.0-35.0); Mean Corpuscular Hemoglobin 29.6 pg (27.0-33.0); Mean Corpuscular Volume 93.9 fL (80.0-98.0); Mean Platelet Volume 9.9 fL (9.4-12.3); Monocytes Absolute Auto 0.1 X10*3/uL (0.1-1.2); Neutrophils Absolute Auto 7.1 x10*3/uL (2.0-8.3); Neutrophils Percent Auto 84.1 % (45-73); Platelet Count 296 X10*3/uL (160-400); Red Blood Count 4.25 X10*6/uL (4.20-5.50); Red Cell Distribution Width 13.3 % (11.0-16.0); White Blood Count 8.4 X10*3/uL (4.8-10.8)
[2022-01-09 07:33] LABS: Anion Gap 12 (12-20); Blood Urea Nitrogen 12 mg/dL (9-16); Calcium 9.5 mg/dL (8.4-10.2); Carbon Dioxide 28 mmol/L (22-29); Chloride 103 mmol/L (96-108); Creatinine Clr Calc Pharmacy 129.1; Estimated Glomerular Filt Rate > 60; Glucose Random 142 mg/dL (60-115); Potassium 5.2 mmol/L (3.3-5.1); Sodium 138 mmol/L (135-145)
[2022-01-09] MEDS: methylPREDNISolone Sod Succ 40 MG/ML VIAL IVPUSH ×2 (07:50→21:19)
--- NOTE | 2022-01-09 08:10 | PHA.MEDREC ---
Pharmacy Consult ? Medication Reconciliation Pharmacy has completed the medication reconciliation. Spoke with the patient who states the last time she took her medications was 01/08 and she took all her morning medications. The only medication the patient wasn't too sure about still taking was olanzapine 5 mg.
[2022-01-09] MEDS: Albuterol/Iprat 2.5/0.5MG 3 ML AMPUL.NEB INHALE ×4 (09:03→21:07)
[2022-01-09] MEDS: Acetaminophen 325 MG TABLET 975 MG PO ×3 (10:03→21:23)
[2022-01-09] MEDS: valACYclovir HCL 1,000 MG TABLET 1000 MG PO ×2 (10:05→21:22)
[2022-01-09] MEDS: Sertraline HCL 50 MG TABLET PO (10:05)
[2022-01-09] MEDS: Ferrous Sulfate 324 MG TABLET.DR PO (10:05)
[2022-01-09] MEDS: Gabapentin 100 MG CAPSULE PO ×2 (10:05→21:23)
[2022-01-09] MEDS: Cholecalciferol (Vitamin D3) 25 MCG TABLET PO (10:05)
[2022-01-09] MEDS: OXcarbazepine 150 MG TABLET PO ×2 (10:05→21:22)
[2022-01-09] MEDS: Azithromycin 500 MG in 0.9 % Sodium Chloride 250 ML 125 MG IV (10:06)
[2022-01-09] MEDS: Lithium Carbonate 300 MG CAPSULE PO ×2 (11:28→21:21)
--- NOTE | 2022-01-09 15:30 | HO.PM.IMPN ---
Subjective Subjective Date of Service: 01/09/22 Interval History: copd exceerbation , diarrahae Review of Systems Patient is seen significant breath short of breath, feelstight ,shows talking in very short sentences. Has cough. Physical Exam Vital Signs: Vital Signs: Last Vital Signs Temp 98.3 F 01/09/22 08:07 Pulse 93 01/09/22 11:55 Resp 20 01/09/22 11:55 BP 133/76 01/09/22 08:07 Pulse Ox 89 L 01/09/22 08:07 Oxygen Flow Rate 2 01/08/22 19:51 BMI result Body Mass Index 40.7 Appearance: Alert.? Oriented X3.? not in distress.? Eyes: Pupils equal, round and reactive to light.? Sclera nonicteric.? ENT: Pharynx normal.? Moist mucous membranes. cvs: rrr, [id number] , no murmur res: air entry diminshed , has wheezing b/l abd: no rebound or guarding ,nt, bs present. ext pulses present , no cyanosis. neuro: axo3 , nonfocal. Objective Data Active Medications Acetaminophen (Acetaminophen 325 Mg Tablet) 975 mg PO TID [facility] Last Admin: 01/09/22 10:03 Dose: 975 mg Documented by: ERICA Albuterol Sulfate (Albuterol Sulfate 90 Mcg 8 Gm Inhaler) 2 puff INHALE Q4H PRN PRN Reason: shortness of breath or wheezing Albuterol/Ipratropium (Albuterol/Iprat 2.5/0.5mg 3 Ml Ampul.Neb) 3 ml INHALE RQ4H PRN PRN Reason: Shortness of Breath/Wheezing Albuterol/Ipratropium (Albuterol/Iprat 2.5/0.5mg 3 Ml Ampul.Neb) 3 ml INHALE RQ4H WHILE AWAKE [facility] Last Admin: 01/09/22 11:54 Dose: 3 ml Documented by: MARIVEL Clonidine HCl (Clonidine Hcl 0.1 Mg Tablet) 0.5 mg PO BEDTIME [facility]; Protocol Enoxaparin Sodium (Enoxaparin Sodium 40 Mg/0.4 Ml Syringe) 40 mg SUBCUT Q24H [facility] Last Admin: 01/09/22 00:42 Dose: Not Given Documented by: KIMBERLY Non-Admin Reason: Patient Refused Ferrous Sulfate (Ferrous Sulfate 324 Mg Tablet.) 324 mg PO DAILY [facility] Last Admin: 01/09/22 10:05 Dose: 324 mg Documented by: ERICA Fluticasone Propionate (Fluticasone Propionate 100 Mcg Blst.W.Dev) 100 puff INHALE RBID [facility] Gabapentin (Gabapentin 100 Mg Capsule) 100 mg PO BID [facility] Last Admin: 01/09/22 10:05 Dose: 100 mg Documented by: ERICA Guaifenesin/Dextromethorphan (Guaifenesin Dm 100/10/5 Ml 5 Ml Syrup) 5 ml PO Q4H PRN PRN Reason: cough Hydroxyzine HCl (Hydroxyzine Hcl 25 Mg Tablet) 25 mg PO BID PRN PRN Reason: Anxiety Ceftriaxone Sodium 1 gm/ (Sodium Chloride) 50 mls @ 100 mls/hr IV Q24H [facility] Last Infusion: 01/09/22 01:23 Dose: 0 mls/hr Documented by: KRISTIN Azithromycin 500 mg/ Sodium (Chloride) 250 mls @ 125 mls/hr IV Q24H [facility] Last Infusion: 01/09/22 13:51 Dose: 0 mls/hr Documented by: ERICA Wildorado Carbonate ([place] Carbonate 300 Mg Capsule) 300 mg PO BID [facility] Last Admin: 01/09/22 11:28 Dose: 300 mg Documented by: ERICA Comments: med was not available in pyxis Methylprednisolone Sodium Succinate (Methylprednisolone Sod Succ 40 Mg/Ml Vial) 40 mg IVPUSH Q12H [facility] Last Admin: 01/09/22 07:50 Dose: 40 mg Documented by: ERICA Olanzapine (Olanzapine 5 Mg Tablet) 5 mg PO BEDTIME [facility] Omeprazole (Omeprazole 20 Mg Capsule.) 20 mg PO DAILY@0630 [facility] Ondansetron HCl (Ondansetron Hcl 4 Mg/2 Ml Vial) 4 mg IVPUSH Q8H PRN PRN Reason: Nausea and Vomiting Oxcarbazepine (Oxcarbazepine 150 Mg Tablet) 150 mg PO BID [facility] Last Admin: 01/09/22 10:05 Dose: 150 mg Documented by: ERICA Pharmacy Consult (Consult Rx Perform Med Rec) 1 each MISCELLANE ONCE PRN PRN Reason: Consult order Quetiapine Fumarate (Quetiapine Fumarate 25 Mg Tablet) 25 mg PO BID PRN PRN Reason: anxiety Ropinirole HCl (Ropinirole Hcl 0.5 Mg Tablet) 0.5 mg PO BEDTIME [facility] Sertraline HCl (Sertraline Hcl 50 Mg Tablet) 50 mg PO DAILY [facility] Last Admin: 01/09/22 10:05 Dose: 50 mg Documented by: ERICA Sodium Chloride (0.9 % Sodium Chloride Flush 3 Ml Syringe) 3 ml IVFLUSH QSHIFT [facility] Last Admin: 01/09/22 07:53 Dose: 3 ml Documented by: ERICA Trazodone HCl (Trazodone Hcl 100 Mg Tablet) 100 mg PO BEDTIME [facility] Valacyclovir HCl (Valacyclovir Hcl 1,000 Mg Tablet) 1,000 mg PO BID [facility] Last Admin: 01/09/22 10:05 Dose: 1,000 mg Documented by: ERICA Vitamin D (Cholecalciferol (Vitamin D3) 25 Mcg Tablet) 25 mcg PO DAILY [facility] Last Admin: 01/09/22 10:05 Dose: 25 mcg Documented by: ERICA Labs CBC & Chem 7: 01/09/22 06:48 01/09/22 06:48 Labs: Laboratory Results - last 24 hr 01/08/22 01/08/22 01/08/22 19:41 19:41 19:41 MCV 94.4 MCH 30.0 MCHC 31.8 RDW 13.3 Plt Count 293 D MPV 9.5 Immature Gran % (Auto) 0.8 H Neut % (Auto) 53.2 Lymph % (Auto) 38.3 [place] % (Auto) 6.4 Eos % (Auto) 1.0 Baso % (Auto) 0.3 Lymph # (Auto) 3.5 [place] # (Auto) 0.6 Eos # (Auto) 0.1 Baso # (Auto) 0.0 Abs Immat Gran (auto) 0.07 H Absolute Neuts (auto) 4.9 Absolute Nucleated RBC 0.020 H Nucleated RBC % (auto) 0.2 VBG pH VBG pCO2 VBG pO2 VBG HCO3 VBG O2 Saturation VBG Base Excess Anion Gap 11 L Estim Creat Clear Calc 119.8 Estimated GFR > 60 Random Glucose 77 Calcium 10.0 Magnesium 2.4 Total Bilirubin 0.3 AST 14 ALT 18 Alkaline Phosphatase 70 Total Protein 7.0 Albumin 4.3 Urine Color Urine Appearance Urine pH Ur Specific [place] Urine Protein Urine Glucose (UA) Urine Ketones Urine Blood Urine Nitrite Ur Leukocyte Esterase Urine RBC Urine WBC Ur Squamous Epith Cells Calcium Oxalate Crystal Urine Bacteria Urine Mucus Urine Trichomonas COVID-19 (ENDY) Negative COVID-19 Clin Com See Note Influenza Type A (KELY) Influenza Type B (KELY) Influenza A & B Note 01/08/22 01/08/22 01/08/22 20:31 21:33 21:36 MCV MCH MCHC RDW Plt Count MPV Immature Gran % (Auto) Neut % (Auto) Lymph % (Auto) [place] % (Auto) Eos % (Auto) Baso % (Auto) Lymph # (Auto) [place] # (Auto) Eos # (Auto) Baso # (Auto) Abs Immat Gran (auto) Absolute Neuts (auto) Absolute Nucleated RBC Nucleated RBC % (auto) VBG pH 7.40 VBG pCO2 57 VBG pO2 37 VBG HCO3 35 H VBG O2 Saturation 51.0 VBG Base Excess 8.8 Anion Gap Estim Creat Clear Calc Estimated GFR Random Glucose Calcium Magnesium Total Bilirubin AST ALT Alkaline Phosphatase Total Protein Albumin Urine Color YELLOW Urine Appearance CLEAR Urine pH 5.5 Ur Specific [place] >= 1.030 H Urine Protein TRACE Urine Glucose (UA) NEG Urine Ketones 5 Urine Blood NEG Urine Nitrite NEG Ur Leukocyte Esterase TRACE H Urine RBC 1-4 Urine WBC 1-4 Ur Squamous Epith Cells 1+ Calcium Oxalate Crystal TRACE Urine Bacteria 1+ Urine Mucus 1+ Urine Trichomonas NOTED COVID-19 (ENDY) COVID-19 Clin Com Influenza Type A (KELY) Negative Influenza Type B (KELY) Negative Influenza A & B Note See Note 01/09/22 01/09/22 06:48 06:48 MCV 93.9 MCH 29.6 MCHC 31.6 RDW 13.3 Plt Count 296 MPV 9.9 Immature Gran % (Auto) 0.7 H Neut % (Auto) 84.1 H Lymph % (Auto) 13.8 L [place] % (Auto) 1.0 L Eos % (Auto) 0.0 Baso % (Auto) 0.4 Lymph # (Auto) 1.2 [place] # (Auto) 0.1 Eos # (Auto) 0.0 Baso # (Auto) 0.0 Abs Immat Gran (auto) 0.06 H Absolute Neuts (auto) 7.1 Absolute Nucleated RBC 0.000 Nucleated RBC % (auto) 0.0 VBG pH VBG pCO2 VBG pO2 VBG HCO3 VBG O2 Saturation VBG Base Excess Anion Gap 12 Estim Creat Clear Calc 129.1 Estimated GFR > 60 Random Glucose 142 H Calcium 9.5 Magnesium Total Bilirubin AST ALT Alkaline Phosphatase Total Protein Albumin Urine Color Urine Appearance Urine pH Ur Specific [place] Urine Protein Urine Glucose (UA) Urine Ketones Urine Blood Urine Nitrite Ur Leukocyte Esterase Urine RBC Urine WBC Ur Squamous Epith Cells Calcium Oxalate Crystal Urine Bacteria Urine Mucus Urine Trichomonas COVID-19 (ENDY) COVID-19 Clin Com Influenza Type A (KELY) Influenza Type B (KELY) Influenza A & B Note Microbiology Microbiology Results: Microbiology 01/08/22 20:40 Urine Culture - Preliminary Urine clean catch - Urine barker top Culture in progress. Assessment and Plan (1) Acute exacerbation of COPD with asthma: Status: Acute (2) Diarrhea: Status: Acute Plan 52-year-old female with past medical history of COPD presents to the hospital with increased cough shortness of breath as well as sputum production found to be hypoxic 1.? acute on chronic hypoxic respiratory failure -? secondary to COPD exacerbation -? satting 87-89% on room air, currently on 2 L satting 89-92% -? recent infection with influenza -? will treat with DuoNeb, Solu-Medrol,completed tamiflu as per patient. added extra nebs -? O2 as required, azithromycin given her severe symptoms 2.? diarrhea -? likely secondary to viral infection -? will rule out C diff -? supportive measures 3.? continue on her other home medications ?DVT prophylaxis: [employer] Stroke Does the patient have a stroke diagnosis?: No VTE Prior VTE?: No VTE Risk Level:: Medical - moderate - high VTE Device Contraindication: Treatment Not Indicated VTE Drug Contraindication: N/A - Med Ordered
[2022-01-09] MEDS: traZODone HCL 100 MG TABLET PO (21:22)
[2022-01-09] MEDS: rOPINIRole HCL 0.5 MG TABLET PO (21:22)
[2022-01-09] MEDS: OLANZapine 5 MG TABLET PO (21:28)
[2022-01-09] MEDS: cloNIDine HCL 0.1 MG TABLET 0.5 MG PO (22:07)
[2022-01-09] MEDS: guaiFENesin DM 100/10/5 ML 5 ML SYRUP PO (22:10)
[2022-01-10] VITALS (8 sets, daily range): BP systolic 113–143; BP diastolic 71–75; PULSE 72–111; RESP 16–18; TEMP 36.6–36.8; O2SAT 88–94
[2022-01-10] MEDS: 0.9 % Sodium Chloride Flush 3 ML SYRINGE IVFLUSH ×3 (00:19→15:48)
[2022-01-10] MEDS: cefTRIAXone sodium 1 GM in 0.9 % Sodium Chloride 50 ML IV (00:19)
[2022-01-10] MEDS: Omeprazole 20 MG CAPSULE.DR PO (06:16)
[2022-01-10 07:35] LABS: Anion Gap 13 (12-20); Blood Urea Nitrogen 11 mg/dL (9-16); Calcium 9.7 mg/dL (8.4-10.2); Carbon Dioxide 27 mmol/L (22-29); Chloride 104 mmol/L (96-108); Creatinine Clr Calc Pharmacy 131.2; Estimated Glomerular Filt Rate > 60; Glucose Random 134 mg/dL (60-115); Potassium 5.4 mmol/L (3.3-5.1); Sodium 139 mmol/L (135-145)
[2022-01-10] MEDS: Albuterol/Iprat 2.5/0.5MG 3 ML AMPUL.NEB INHALE ×4 (07:53→20:30)
[2022-01-10] MEDS: Gabapentin 100 MG CAPSULE PO ×2 (09:56→20:47)
[2022-01-10] MEDS: valACYclovir HCL 1,000 MG TABLET 1000 MG PO ×2 (09:56→20:47)
[2022-01-10] MEDS: predniSONE 20 MG TABLET 40 MG PO (09:57)
[2022-01-10] MEDS: Azithromycin 500 MG in 0.9 % Sodium Chloride 250 ML 125 MG IV (09:59)
[2022-01-10] MEDS: Ferrous Sulfate 324 MG TABLET.DR PO (10:00)
[2022-01-10] MEDS: Sertraline HCL 50 MG TABLET PO (10:00)
[2022-01-10] MEDS: OXcarbazepine 150 MG TABLET PO ×2 (10:00→20:48)
[2022-01-10] MEDS: Cholecalciferol (Vitamin D3) 25 MCG TABLET PO (10:00)
[2022-01-10] MEDS: Sodium Zirconium Cyclosilicate 10 GM POWD.PACK PO (10:01)
--- NOTE | 2022-01-10 10:37 | HO.PM.IMPN ---
Subjective Subjective Date of Service: 01/11/22 Interval History: copd excerebation Review of Systems sob seems improvin Physical Exam Vital Signs: Vital Signs: Last Vital Signs Temp 98.8 F 01/09/22 20:43 Pulse 81 01/10/22 07:54 Resp 18 01/10/22 07:54 BP 117/69 01/09/22 20:43 Pulse Ox 94 01/09/22 20:43 Oxygen Flow Rate 2 01/08/22 19:51 BMI result Body Mass Index 40.7 Appearance: Alert.? Oriented X3.? not in distress.? Eyes: Pupils equal, round and reactive to light.? Sclera nonicteric.? ENT: Pharynx normal.? Moist mucous membranes. cvs: rrr, [id number] , no murmur res: air entry improving , has mild rhonchii abd: no rebound or guarding ,nt, bs present. ext pulses present , no cyanosis. neuro: axo3 , nonfocal. Objective Data Active Medications Acetaminophen (Acetaminophen 325 Mg Tablet) 975 mg PO TID [facility] Last Admin: 01/10/22 10:21 Dose: Not Given Documented by: ERICA Non-Admin Reason: Patient Refused Albuterol Sulfate (Albuterol Sulfate 90 Mcg 8 Gm Inhaler) 2 puff INHALE Q4H PRN PRN Reason: shortness of breath or wheezing Albuterol/Ipratropium (Albuterol/Iprat 2.5/0.5mg 3 Ml Ampul.Neb) 3 ml INHALE RQ4H PRN PRN Reason: Shortness of Breath/Wheezing Albuterol/Ipratropium (Albuterol/Iprat 2.5/0.5mg 3 Ml Ampul.Neb) 3 ml INHALE RQ4H WHILE AWAKE [facility] Last Admin: 01/10/22 07:53 Dose: 3 ml Documented by: MARIYA Clonidine HCl (Clonidine Hcl 0.1 Mg Tablet) 0.5 mg PO BEDTIME [facility]; Protocol Last Admin: 01/09/22 22:07 Dose: 0.5 mg Documented by: CRISTINA Ferrous Sulfate (Ferrous Sulfate 324 Mg Tablet.) 324 mg PO DAILY [facility] Last Admin: 01/10/22 10:00 Dose: 324 mg Documented by: ERICA Fluticasone Propionate (Fluticasone Propionate 100 Mcg Blst.W.Dev) 100 puff INHALE RBID [facility] Last Admin: 01/10/22 07:52 Dose: Not Given Documented by: MARIYA Non-Admin Reason: Med Not Available Gabapentin (Gabapentin 100 Mg Capsule) 100 mg PO BID [facility] Last Admin: 01/10/22 09:56 Dose: 100 mg Documented by: ERICA Guaifenesin/Dextromethorphan (Guaifenesin Dm 100/10/5 Ml 5 Ml Syrup) 5 ml PO Q4H PRN PRN Reason: cough Last Admin: 01/09/22 22:10 Dose: 5 ml Documented by: CRISTINA Hydroxyzine HCl (Hydroxyzine Hcl 25 Mg Tablet) 25 mg PO BID PRN PRN Reason: Anxiety Ceftriaxone Sodium 1 gm/ (Sodium Chloride) 50 mls @ 100 mls/hr IV Q24H [facility] Last Infusion: 01/10/22 00:50 Dose: 0 mls/hr Documented by: KRISTIN Azithromycin 500 mg/ Sodium (Chloride) 250 mls @ 125 mls/hr IV Q24H [facility] Last Admin: 01/10/22 09:59 Dose: 125 mls/hr Documented by: ERICA Olanzapine (Olanzapine 5 Mg Tablet) 5 mg PO BEDTIME [facility] Last Admin: 01/09/22 21:28 Dose: 5 mg Documented by: CRISTINA Omeprazole (Omeprazole 20 Mg Capsule.Dr) 20 mg PO DAILY@0630 [facility] Last Admin: 01/10/22 06:16 Dose: 20 mg Documented by: KRISTIN Ondansetron HCl (Ondansetron Hcl 4 Mg/2 Ml Vial) 4 mg IVPUSH Q8H PRN PRN Reason: Nausea and Vomiting Oxcarbazepine (Oxcarbazepine 150 Mg Tablet) 150 mg PO BID [facility] Last Admin: 01/10/22 10:00 Dose: 150 mg Documented by: ERICA Pharmacy Consult (Consult Rx Perform Med Rec) 1 each MISCELLANE ONCE PRN PRN Reason: Consult order Prednisone (Prednisone 20 Mg Tablet) 40 mg PO DAILY [facility] Last Admin: 01/10/22 09:57 Dose: 40 mg Documented by: ERICA Quetiapine Fumarate (Quetiapine Fumarate 25 Mg Tablet) 25 mg PO BID PRN PRN Reason: anxiety Ropinirole HCl (Ropinirole Hcl 0.5 Mg Tablet) 0.5 mg PO BEDTIME [facility] Last Admin: 01/09/22 21:22 Dose: 0.5 mg Documented by: CRISTINA Sertraline HCl (Sertraline Hcl 50 Mg Tablet) 50 mg PO DAILY [facility] Last Admin: 01/10/22 10:00 Dose: 50 mg Documented by: ERICA Sodium Chloride (0.9 % Sodium Chloride Flush 3 Ml Syringe) 3 ml IVFLUSH QSHIFT [facility] Last Admin: 01/10/22 09:56 Dose: 3 ml Documented by: ERICA Trazodone HCl (Trazodone Hcl 100 Mg Tablet) 100 mg PO BEDTIME [facility] Last Admin: 01/09/22 21:22 Dose: 100 mg Documented by: CRISTINA Valacyclovir HCl (Valacyclovir Hcl 1,000 Mg Tablet) 1,000 mg PO BID [facility] Last Admin: 01/10/22 09:56 Dose: 1,000 mg Documented by: ERICA Vitamin D (Cholecalciferol (Vitamin D3) 25 Mcg Tablet) 25 mcg PO DAILY [facility] Last Admin: 01/10/22 10:00 Dose: 25 mcg Documented by: ERICA Labs CBC & Chem 7: 01/09/22 06:48 01/10/22 11:30 Labs: Laboratory Results - last 24 hr 01/10/22 06:58 Anion Gap 13 Estim Creat Clear Calc 131.2 Estimated GFR > 60 Random Glucose 134 H Calcium 9.7 Microbiology Microbiology Results: Microbiology 01/08/22 20:40 Urine Culture - Final Urine clean catch - Urine barker top Assessment and Plan (1) Acute exacerbation of COPD with asthma: Status: Acute Plan 52-year-old female with past medical history of COPD presents to the hospital with increased cough shortness of breath as well as sputum production found to be hypoxic 1.? acute on chronic hypoxic respiratory failure -? secondary to COPD exacerbation sob improving Currently patient still need oxygen, respiratory panel added DuoNeb, Solu-Medrol,completed tamiflu as per patient. added extra nebs, magnesium, loratadine -? O2 as required, azithromycin given her severe symptoms 2.? diarrhea: Improved Does not have BM, if has diarrhea again will send C diff. -? supportive measures 3.? continue on her other home medications ?DVT prophylaxis: Lovenox Patient is still hypoxic, currently unable to goes since need oxygen and cannot currently due to homeless situation, will give day or so nebs steroid and reeval need for for oxygen again in the morning Quality Stroke Does the patient have a stroke diagnosis?: No VTE Prior VTE?: No VTE Risk Level:: Medical - moderate - high VTE Device Contraindication: Treatment Not Indicated VTE Drug Contraindication: N/A - Med Ordered
--- NOTE | 2022-01-10 10:38 | P.DS_ITS ---
DS: Providers Provider Date of Service: 01/11/22 Date of admission: 01/08/22 23:02 Primary care physician: Unknown Physician DS: Diagnosis Discharge Diagnosis (1) Acute exacerbation of COPD with asthma: Status: Acute (2) Diarrhea: Status: Acute DS: Summary Hospital Course Hospital Course: 52-year-old female with past medical history of COPD /asthma, bipolar disorder, FABIOLA, PTSD, tobacco use disorder who presents to the hospital with complaints of worsening shortness of breath and cough.? Patient reports that she was recently admitted and discharged from [facility] for management of COPD exacerbation secondary to influenza, on discharge 2 days ago patient felt better with her symptoms improved but about a day ago she once again developed worsening shortness of breath cough and sputum production.? Patient is also complaining of more than 8 episodes of watery diarrhea, she denies any chest pain, no palpitations, no fever or chills.? No abdominal pain no nausea or vomiting,? she is complaining of urinary frequency that is been going on for 2 days, no urgency or dysuria.? She has no lower extremity edema.? ?note patient was sent home on prednisone from [facility] which patient reports compliance with On arrival to the ED patient was found to be hypoxic satting around 85-87%.? Currently placed on 2 L of oxygen satting between 89-92% Labs are significant for ? WBC count of 9.2, potassium of 5.0, UA positive for leukocyte esterase and some WBC, influenza A/B negative.? COVID-19 negative ?chest x-ray shows peribronchial cuffing bilaterally can be seen in the setting of underlying reactive small airway disease. Hospital course: Patient came with acute hypoxemic respiratory failure secondary to COPD exacerbation probably has a component of acute bronchitis: Subsequently patient was started on nebs, steroids, antibiotics: Patient subsequently improved seems to be doing much better ,shortness of breath improved, home oxygen evaluation done -does not qualify. Patient is going to go home with p.o. steroids and antibiotics. Further management outpatient as per PCP. Above management discussed with the patient in detail length she understand and in agreement with the above plan, time spent 50 minutes and 50% time spent on counseling. Significant findings: As above. Procedures performed: None. Treatment and response: As above. Complications: None. Time Spent with Patient Time attestation: Total time spent providing and/or coordinating discharge services: Discharge coordination time: Greater than 30 minutes Quality: Stroke Does the patient have a stroke diagnosis?: No Physical Exam Vital Signs: Vital Signs: Last Vital Signs Temp 98.8 F 01/09/22 20:43 Pulse 81 01/10/22 07:54 Resp 18 01/10/22 07:54 BP 117/69 01/09/22 20:43 Pulse Ox 94 01/09/22 20:43 Oxygen Flow Rate 2 01/08/22 19:51 BMI result Body Mass Index 40.7 Appearance: Alert.? Oriented X3.? not in distress.? Eyes: Pupils equal, round and reactive to light.? Sclera nonicteric.? ENT: Pharynx normal.? Moist mucous membranes. cvs: rrr, [id number] . res: clear to auscultation ,no rhonchii or wheezing abd: no rebound or guarding ,nt, bs present. ext pulses present , no cyanosis . neuro: axo3 , nonfocal. DS: Data Data Completed and Pending Completed studies during hospitalization [Text1]: Procedures Drainage of Left Parotid Gland, Percutaneous Approach, Diagnostic (11/09/21) Excision of Left Parotid Gland, Percutaneous Approach, Diagnostic (11/09/21) Labs on day of discharge: Laboratory Results - last 24 hr 01/10/22 06:58 Sodium 139 Potassium 5.4 H Chloride 104 Carbon Dioxide 27 Anion Gap 13 BUN 11 Creatinine 0.63 Estim Creat Clear Calc 131.2 Estimated GFR > 60 Random Glucose 134 H Calcium 9.7 Additional Comments Additional comments: ?XR/XR chest 1V IMPRESSION: Peribronchial cuffing bilaterally could be seen in the setting of underlying reactive or small airways disease. No dense consolidation or focal infiltrate appreciated. ? Discharge Plan Discharge Patient Disposition: Home, Self-Care Discharge Diagnosis: COPD exacerbation, possible acute bronchitis Referrals: Physician,Unknown J [Primary Care Provider] - 1 Week Discharge Medications: New cefuroxime axetil 500 mg tablet 500 mg PO BID Qty: 12 0RF azithromycin 250 mg tablet 250 mg PO DAILY 5 Days Qty: 5 0RF prednisone 20 mg tablet 40 mg PO DAILY Qty: 6 0RF Continued quetiapine 25 mg Tablet 25 mg PO BID PRN (Reason: anxiety) 30 Days Qty: 45 0RF Rx Instructions: take 1-2 tabs twice a day as needed for anxiety ropinirole 0.5 mg Tablet 0.5 mg PO BEDTIME 30 Days Qty: 30 0RF valacyclovir 1 gram Tablet 1,000 mg PO BID 30 Days Qty: 60 0RF omeprazole 20 mg Capsule,Delayed Release(Dr/Ec) 20 mg PO DAILY@0630 30 Days Qty: 30 0RF albuterol sulfate 90 mcg/actuation HFA aerosol inhaler 2 puff inhalation Q4-6H PRN (Reason: shortness of breath or wheezing) 30 Days Qty: 8.5 0RF sertraline 50 mg Tablet 50 mg PO DAILY 30 Days Qty: 30 0RF cholecalciferol (vitamin D3) 25 mcg (1,000 unit) Tablet 25 mcg PO DAILY 30 Days Qty: 30 0RF ferrous sulfate 324 mg (65 mg iron) Tablet,Delayed Release (Dr/Ec) 324 mg PO DAILY 30 Days Qty: 30 0RF oxcarbazepine 150 mg Tablet 150 mg PO BID 30 Days Qty: 60 0RF clonidine HCl 0.1 mg Tablet 0.5 mg PO BEDTIME 30 Days Qty: 150 0RF Protocol: Hold for SBP< HOLD for SBP < : 90 acetaminophen 325 mg Tablet 975 mg PO TID 7 Days Qty: 63 3RF hydroxyzine HCl 25 mg Tablet 25 mg PO BID PRN (Reason: Anxiety) 30 Days Qty: 60 0RF trazodone 100 mg tablet 100 mg PO BEDTIME 0RF olanzapine 10 mg tablet 5 mg PO BEDTIME 0RF gabapentin 100 mg capsule 100 mg PO BID 0RF oseltamivir 75 mg PO BID 0RF Flovent Diskus 100 mcg inhalation DAILY 0RF lithium carbonate 300 mg Capsule 300 mg PO BID 0RF Discharge Orders: Discharge Order (Routine); Ordered 01/10/22 Ordered By: Alex Maher Diet: advance to usual diet Activity on Discharge: As tolerated Stand Alone Forms: Patient Portal Discharge page Care Plan Goals: Patient came with acute hypoxemic respiratory failure secondary to COPD exacerbation probably has a component of acute bronchitis: Subsequently patient was started on nebs, steroids, antibiotics: Patient subsequently improved seems to be doing much better ,shortness of breath improved, home oxygen evaluation done -does not need oxygen. Patient is going to go home with p.o. steroids and antibiotics. Further management outpatient as per PCP. Health Concerns: As above. Plan of Treatment: As above. Assessment: As above.
--- NOTE | 2022-01-10 11:18 | MHC.CM.PN ---
PT REPORTS SHE IS HOMELESS BUT STAYING WITH A FRIEND AT [address] [place] [address] [place] PT REPORTS SHE USES [facility] THE [facility] FOR HER HEALTHCARE NEEDS AND SEES DR CUMMINGS FOR PRIMARY CARE SHE ALSO REPORTS BEING ACTIVE WITH THERAPY AND PSYCHIATRY SERVICES WITH [facility] PT HAS A HCP ON FILE SHE CONFIRMS HIS ACCURATE PT REPORTS SHE IS VACCINATED AGAINST COVID-19 AND HAS RECEIVED THE BOOSTER PT WILL DC TODAY TO HER FRIENDS HOME VIA [facility]
[2022-01-10 12:08] LABS: Potassium 5.1 mmol/L (3.3-5.1)
--- NOTE | 2022-01-10 12:34 | PC.NURSE ---
pt seen by Dr. Maher, Respiratory Therapist evaluation done. o2 88-89% r/a during ambulation. vss, denies pain. meds given as documented. no complaints. will continue to monitor.
--- NOTE | 2022-01-10 12:48 | PC.NURSE ---
this advertising writer was notified by Dr. Maher that pt will not be discharged today. pt aware of plan. will continue to monitor.
[2022-01-10] MEDS: Acetaminophen 325 MG TABLET 975 MG PO ×2 (14:14→20:48)
[2022-01-10] MEDS: Magnesium Sulfate/D5W 1 GM/100 ML PIGGYBACK IV (14:15)
[2022-01-10] MEDS: Loratadine 10 MG TABLET PO (14:16)
--- NOTE | 2022-01-10 17:38 | PC.NURSE ---
report obtained from alfred for remainder of shift- patient a&ox3, no c/o pain or discomfort at this time, pt disliking wearing O2- on room air the patients O2 sat while sitting in bed was 91%, pt speaking in full sentences and denies sob, no wheezing noted at this time, patient does have a hx of copd ? baseline O2 sat with COPD. call castillo within reach, will continue to monitor.
--- NOTE | 2022-01-10 18:35 | PC.NURSE ---
pt a&ox3, pt is not adhering to o2, vss, O2 in low 90s on room air, denies any pain/sob at this time, will continue to monitor.
[2022-01-10] MEDS: rOPINIRole HCL 0.5 MG TABLET PO (20:47)
[2022-01-10] MEDS: traZODone HCL 100 MG TABLET PO (20:48)
[2022-01-10] MEDS: OLANZapine 5 MG TABLET PO (20:48)
[2022-01-10] MEDS: cloNIDine HCL 0.1 MG TABLET 0.5 MG PO (21:13)
[2022-01-11] MEDS: cefTRIAXone sodium 1 GM in 0.9 % Sodium Chloride 50 ML IV (00:49)
[2022-01-11] MEDS: 0.9 % Sodium Chloride Flush 3 ML SYRINGE IVFLUSH ×2 (00:51→08:12)
[2022-01-11 02:33] VITALS: BP 109/71; PULSE 75; RESP 17; TEMP 36.3; O2SAT 92
[2022-01-11] MEDS: Omeprazole 20 MG CAPSULE.DR PO (05:47)
[2022-01-11 07:15] VITALS: BP 105/66; PULSE 73; RESP 20; TEMP 36.6; O2SAT 93
[2022-01-11] MEDS: Loratadine 10 MG TABLET PO (08:02)
[2022-01-11] MEDS: Gabapentin 100 MG CAPSULE PO (08:02)
[2022-01-11] MEDS: Ferrous Sulfate 324 MG TABLET.DR PO (08:02)
[2022-01-11] MEDS: Cholecalciferol (Vitamin D3) 25 MCG TABLET PO (08:02)
[2022-01-11] MEDS: predniSONE 20 MG TABLET 40 MG PO (08:02)
[2022-01-11] MEDS: Sertraline HCL 50 MG TABLET PO (08:03)
[2022-01-11] MEDS: OXcarbazepine 150 MG TABLET PO (08:03)
[2022-01-11] MEDS: valACYclovir HCL 1,000 MG TABLET 1000 MG PO (08:03)
[2022-01-11] MEDS: Albuterol/Iprat 2.5/0.5MG 3 ML AMPUL.NEB INHALE (08:05)
[2022-01-11] MEDS: guaiFENesin DM 100/10/5 ML 5 ML SYRUP PO (08:11)
[2022-01-11 08:12] VITALS: PULSE 61; RESP 20; O2SAT 93
[2022-01-11] MEDS: Fluticasone Propionate 100 MCG BLST.W.DEV 100 PUFF INHALE (08:43)
--- NOTE | 2022-01-11 08:52 | MHC.CM.PN ---
Addendum entered by Shreya Siegel RN 01/11/22 11:58: PT WILL TAKE [employer] SHUTTLE FOR TRANSPORT, PT HAS VOUCHER. Original Note: PT MEDICALLY CLEARED FOR D/C HOME SELF-CARE, CM MET W/PT WHO REPORTS SHE IS READY TO GO, PT GIVEN [facility] VOUCHER AND CM WILL CALL ONCE D/C PAPERWORK IS REVIEWED.
[2022-01-11 09:58] LABS: Adenovirus PCR Not Detected (Not Detect.); Bordetella parapertussis PCR Not Detected (Not Detect.); Bordetella pertussis PCR Not Detected (Not Detect.); Chlamydia pneumoniae PCR Not Detected (Not Detect.); Coronavirus 229E PCR Not Detected (Not Detect.); Coronavirus HKU1 PCR Not Detected (Not Detect.); Coronavirus NL63 PCR Not Detected (Not Detect.); Coronavirus OC43 PCR Not Detected (Not Detect.); Human metapneumovirus PCR Not Detected (Not Detect.); Influenza A PCR Not Detected (Not Detect.); Influenza B PCR Not Detected (Not Detect.); Mycoplasma pneumoniae PCR Not Detected (Not Detect.); Parainfluenza 1 PCR Not Detected (Not Detect.); Parainfluenza 2 PCR Not Detected (Not Detect.); Parainfluenza 3 PCR Not Detected (Not Detect.); Parainfluenza 4 PCR Not Detected (Not Detect.); RSV PCR Not Detected (Not Detect.); Rhino/Enterovirus PCR Not Detected (Not Detect.); SARS-CoV-2 PCR Not Detected (Not Detect.)
[2022-01-11] MEDS: Azithromycin 500 MG in 0.9 % Sodium Chloride 250 ML 125 MG IV (10:14)
[2022-01-11 11:07] VITALS: PULSE 114; PULSE 91; O2SAT 91; O2SAT 93
--- NOTE | 2022-01-11 11:33 | P.CDIR_ITS ---
Documented by User: Astrid Byrne RN 01/11/22 11:35 Retrospective Query PHYSICIAN'S DOCUMENTATION REQUEST Date of Query: 01/11/22 1137 Patient Name: Bhavana Garza Admit Date: 01/08/22 Dear Doctor, A review of the medical record indicates additional documentation may be needed. Please review below and update the documentation accordingly. Clinical Indicators: Height: [] 5'5 Weight: [] 111.13 kg BMI: [] 40.8 Other Clinical Notes Supporting Significance of the BMI: Risk Factors/Clinical Indicators/Treatments hx obstructive sleep apnea If possible, please provide an associated diagnosis related to the abnormal BMI, such as: For a BMI >= 40: * Overweight * Obesity * Due to excess calories * Drug induced * Due to other cause * Severe or Morbid Obesity * With alveolar hypoventilation * Without alveolar hypoventilation Or: * BMI is not significant * Other (please specify) * Unable to determine Use of terms such as suspected, likely, concern for, or probable (associated with a specific diagnosis that is being evaluated, monitored, or treated as if it exists) are acceptable and can be coded in the inpatient setting, when documented at the time of discharge. Thank you, Astrid Byrne RN Extension: [phone] Please use your independent medical judgment in providing your response. THIS QUERY IS PART OF THE PERMANENT MEDICAL RECORD Documented by User: Alex Maher MD 01/11/22 12:06 Retrospective Query Provider Response: Other (morbid obesity)
== END 2022-01-11 12:03 | disposition home or self-care (01) | DRG 140 ==
LOC: HO.ED 22:26 → HO.EDOVER 23:10 → HO.S3 01-11 02:02
PROVIDERS: Physician Assistant; Admitting Provider Internal Medicine; Emergency Provider Emergency Medicine; Visit Provider Internal Medicine
DX: J44.0 Chronic obstructive pulmonary disease with (acute) lower respiratory infection (principal); J96.21 Acute and chronic respiratory failure with hypoxia; J44.1 Chronic obstructive pulmonary disease with (acute) exacerbation; F17.210 Nicotine dependence, cigarettes, uncomplicated; F43.10 Post-traumatic stress disorder, unspecified; G47.33 Obstructive sleep apnea (adult) (pediatric); J20.9 Acute bronchitis, unspecified; E66.01 Morbid (severe) obesity due to excess calories; Z68.41 Body mass index [BMI] 40.0-44.9, adult; Z71.6 Tobacco abuse counseling; Z20.822 Contact with and (suspected) exposure to COVID-19; Z59.02 Unsheltered homelessness; Z91.040 Latex allergy status; Z88.0 Allergy status to penicillin; Z88.2 Allergy status to sulfonamides; Z79.899 Other long term (current) drug therapy
CPT/HCPCS: 36415; 71045; 80048; 80053; 81001; 82803; 83735; 84132; 84484; 85025; 87086; 87502; 87633; 87635; 94640; 99285; J0456; J0696; J2920; J2930; J3475

== ENCOUNTER 2022-01-19 04:52 | Inpatient (IN) | payer OTHER, MEDICAID, SELFPAY ==
--- NOTE | 2022-01-19 | ECG_ITS ---
Test Reason : PRE ADMISSION Blood Pressure : / mmHG Vent. Rate : 084 BPM Atrial Rate : 084 BPM P-R Int : 152 ms QRS Dur : 082 ms QT Int : 380 ms P-R-T Axes : 020 041 039 degrees QTc Int : 449 ms Normal sinus rhythm Normal ECG When compared with ECG of 09-NOV-2021 16:22, No significant change was found Referred By: Oswaldo Hollis Electronically Signed By:Deangelo Gutierres
--- NOTE | ~2022-01-19 | XR_ITS ---
EXAMINATION: XR CHEST CLINICAL INFORMATION: Shortness of breath COMPARISON: Previous chest x-ray 01/08/2022 TECHNIQUE: Frontal view of the chest was obtained. FINDINGS: The cardiac and mediastinal contours are stable. The lungs are clear.. There is no pleural effusion or pneumothorax. Bony structures are unremarkable. XR/XR chest 1V IMPRESSION: No evidence for acute disease in the chest.
[2022-01-19 04:57] VITALS: BP 116/70; PULSE 87; RESP 19; TEMP 36.7; O2SAT 92; BMI 41.5
[2022-01-19 05:23] LABS: Appearance Urine CLOUDY; Color Urine DK YELLOW; Glucose Urine UA NEG (NEG); Leukocyte Esterase Urine TRACE (NEG); Nitrite Urine NEG (NEG); PH 5.5 (5.0-8.0); Specific Gravity - Urine >= 1.030 (1.005-1.025); Urine Blood TRACE (NEG); Urine Ketones NEG (NEG); Urine Protein 1+ MG/DL (NEG-TRACE)
[2022-01-19 05:35] LABS: Bacteria Urine 3+ /LPF; Mucus Urine 2+ /LPF; Squamous Epithelial Cell Urine 3+ /LPF; Trichomonas Urine NOTED
[2022-01-19 05:38] LABS: COVID-19 Test Negative (Negative); IDNOW Serial# 16C4AD1C
[2022-01-19 05:39] LABS: Amphetamine Screen Urine Not Detected (Not Detect); Barbiturates, Urine Not Detected (Not Detect); Benzodiazepines Screen Urine Not Detected (Not Detect); Cannabinoid Screen Urine Not Detected (Not Detect); Cocaine Screen Urine Not Detected (Not Detect); Fentanyl, urine Not Detected (Not Detect); Opiate Screen Urine Not Detected (Not Detect); Phencyclidine Screen Urine Not Detected (Not Detect)
[2022-01-19 06:01] LABS: Ethanol < 10 mg/dL
--- NOTE | 2022-01-19 06:01 | PC.NURSE ---
[facility] referral completed/confirmed pending ETA
[2022-01-19 06:03] LABS: Lithium < 0.10 mmol/L (0.60-1.20)
--- NOTE | 2022-01-19 06:09 | ED_ITS ---
HPI - Psych General Chief Complaint: Psychiatric Symptoms Stated Complaint: psych eval Time Seen by Provider: 01/19/22 06:09 Source: patient Mode of arrival: EMS History of Present Illness HPI Narrative: 52-year-old female who presents via EMS with complaints of suicidal ideation and depression but denies any AVH. She states her plan would be to jump from a bridge and denies any event that precipitated the way that she feels. She says she has not slept in while. And otherwise denies any fever, chills, or GI symptoms but does have complaints of burning on urination. Related Data Home Medications Medication Instructions Recorded Confirmed Flovent Diskus 100 mcg INHALATION DAILY 01/09/22 01/09/22 gabapentin 100 mg capsule 200 mg PO BID 01/09/22 01/19/22 lithium carbonate 300 mg capsule 300 mg PO BID 01/09/22 01/19/22 olanzapine 10 mg tablet 5 mg PO BEDTIME 01/09/22 01/09/22 oseltamivir 75 mg PO BID 01/09/22 01/09/22 trazodone 100 mg tablet 150 mg PO BEDTIME 01/09/22 01/19/22 Previous Rx's Medication Instructions Recorded albuterol sulfate 90 mcg/actuation 2 puff INHALATION Q4-6H PRN 30 10/29/21 aerosol inhaler Days #8.5 g cholecalciferol (vitamin D3) 25 25 mcg PO DAILY 30 Days #30 tab 10/29/21 mcg (1,000 unit) tablet ferrous sulfate 324 mg (65 mg 324 mg PO DAILY 30 Days #30 tab 10/29/21 iron) tablet,delayed release omeprazole 20 mg capsule,delayed 20 mg PO DAILY@0630 30 Days #30 cap 10/29/21 release quetiapine 25 mg tablet 25 mg PO BID PRN 30 Days #45 tab 10/29/21 ropinirole 0.5 mg tablet 0.5 mg PO BEDTIME 30 Days #30 tab 10/29/21 valacyclovir 1 gram tablet 1,000 mg PO BID 30 Days #60 tab 10/29/21 acetaminophen 325 mg tablet 975 mg PO TID 7 Days #63 tab 12/02/21 clonidine HCl 0.1 mg tablet 0.5 mg PO BEDTIME 30 Days #150 tab 12/02/21 hydroxyzine HCl 25 mg tablet 25 mg PO BID PRN 30 Days #60 tab 12/02/21 oxcarbazepine 150 mg tablet 150 mg PO BID 30 Days #60 tab 12/02/21 cefuroxime axetil 500 mg tablet 500 mg PO BID #12 tab 01/10/22 prednisone 20 mg tablet 40 mg PO DAILY #6 tab 01/10/22 Allergies Allergy/AdvReac Type Severity Reaction Status Date / Time aspirin [Aspirin] Allergy Severe HIVES,THROAT Verified 10/13/21 04:51 SWELLS bee pollen [BEE STINGS] Allergy Severe ANAPHYLAXIS Verified 10/13/21 04:51 diphenhydramine Allergy Severe hives, Verified 10/13/21 04:51 [From BENADRYL ALLERGY] throat swells Penicillins [PCN] Allergy Severe HIVES Verified 10/13/21 04:51 THROAT SWELLS Sulfa (Sulfonamide Allergy Intermediate HIVES Verified 10/13/21 04:51 Antibiotics) [SULFA (SULFONAMIDE ANTIBIOTICS)] tramadol [TRAMADOL] Allergy Intermediate ITCHING Verified 10/13/21 04:51 latex [LATEX] Allergy Unknown UNKNOWN Verified 10/13/21 04:51 penicillin G Allergy Unknown Unknown Verified 10/13/21 04:51 levofloxacin [From Levaquin] Allergy Hives Verified 10/13/21 04:51 bee stings Allergy Unknown Unknown Uncoded 10/13/21 04:51 DairyCare Allergy Unknown Unknown Uncoded 10/13/21 04:51 sulfa drugs Allergy Unknown Unknown Uncoded 10/13/21 04:51 Review of Systems Review of Systems: Pertinent positives and negatives as stated in HPI 10 point review of systems is otherwise negative. [facility] Past Medical History Source: nursing notes reviewed Medical History Asthma exacerbation in COPD Bipolar disorder Bipolar I disorder Borderline personality disorder Borderline personality disorder COPD (chronic obstructive pulmonary disease) Depression Drug abuse Herpes Intermittent explosive disorder Mass of parotid gland FABIOLA (obstructive sleep apnea) Post traumatic stress disorder (PTSD) PTSD (post-traumatic stress disorder) PTSD (post-traumatic stress disorder) Tobacco use Surgical History History of ankle surgery History of appendectomy History of back surgery Hx of cholecystectomy Family History Family History Mother COPD (chronic obstructive pulmonary disease) Social History Social History Household Members: Friend(s) Household Members Other:: Pt states she hangs out with a male friend and a female friend Housing: Homeless Housing Other:: will be getting apartment 07/01 Do you presently have visiting nurse or other home services: No Unable to assess alcohol history related to: Unknown Alcohol intake: never Patient Tobacco Use Status: Never used Tobacco Tobacco use type: Cigarette Cigarette Packs Per Day: 0.5 Cigarettes Per Day: 10.0 Years Smoked: 37 e-Cigarette/Vaping Use: Never Used Second Hand Smoke Exposure: Yes Substance Use Type: Crack/Cocaine Advance Directives: Yes Advance Directives on File: Yes Advance Directives Date on File: 12/24/20 Patient : No service: No Current occupational status: unemployed and disabled Sexual orientation: Don't Know Physical Exam Vital Signs: Vital Signs: Last Vital Signs Temp 98.1 F 01/19/22 04:57 Pulse 87 01/19/22 04:57 Resp 19 01/19/22 04:57 BP 116/70 01/19/22 04:57 Pulse Ox 92 01/19/22 04:57 BMI result Body Mass Index 41.5 VITAL SIGNS: Reviewed. GENERAL: Elevated BMI, chronically ill, in no acute distress. HEAD: Normocephalic/atraumatic EYES: PERRLA, EOMI OROPHARYNX: no oral lesions noted, posterior pharynx clear LUNGS: Normal breath sounds. No adventitious sounds or accessory muscle use. SpO2<92> CARDIOVASCULAR: Regular rate and rhythm without noted murmurs ABDOMEN: Soft, non-tender, non-distended with bowel sounds. MUSCULOSKELETAL: No tenderness, deformities, or effusions noted on gross inspection. EXTREMITIES: No cyanosis, clubbing or edema. SKIN: Inspection of the skin reveals no rashes NEUROLOGIC: Alert and oriented x 4. Strength and sensation to light touch were grossly intact x 4, cranial nerves 2-12 are grossly intact. PSYCH: Depressive affect Course Course Course Narrative: 52-year-old female history and clinical presentation consistent with depression and suicidal ideation and has not been compliant with medications. On review of all investigations she is noted to have a UTI and will be started on Macrobid. She is otherwise medically cleared for further evaluation by the behavioral team. MDM - Psych Lab Data Labs: Lab Results 01/19/22 01/19/22 01/19/22 Range/Units 05:16 05:16 05:16 Urine Color DK YELLOW Urine Appearance CLOUDY Urine pH 5.5 (5.0-8.0) Ur Specific [place] >= 1.030 H (1.005-1.025) Urine Protein 1+ H (NEG-TRACE) MG/DL Urine Glucose (UA) NEG (NEG) MG/DL Urine Ketones NEG (NEG) MG/DL Urine Blood TRACE (NEG) Urine Nitrite NEG (NEG) Ur Leukocyte Esterase TRACE H (NEG) Urine RBC 1-4 (0) /HPF Urine WBC 15-29 H (0-4) /HPF Ur Squamous Epith Cells 3+ /LPF Urine Bacteria 3+ /LPF Urine Mucus 2+ /LPF Urine Trichomonas NOTED Urine Opiates Screen Not Detected (Not Detect) Urine Fentanyl Screen Not Detected (Not Detect) Ur Barbiturates Screen Not Detected (Not Detect) Ur Phencyclidine Scrn Not Detected (Not Detect) Ur Amphetamines Screen Not Detected (Not Detect) U Benzodiazepines Scrn Not Detected (Not Detect) [place] (0.60-1.20) mmol/L Urine Cocaine Screen Not Detected (Not Detect) U Marijuana (THC) Screen Not Detected (Not Detect) Ethyl Alcohol mg/dL COVID-19 (ENDY) Negative (Negative) COVID-19 Clin Com See Note 01/19/22 01/19/22 Range/Units 05:41 05:41 Urine Color Urine Appearance Urine pH (5.0-8.0) Ur Specific [place] (1.005-1.025) Urine Protein (NEG-TRACE) MG/DL Urine Glucose (UA) (NEG) MG/DL Urine Ketones (NEG) MG/DL Urine Blood (NEG) Urine Nitrite (NEG) Ur Leukocyte Esterase (NEG) Urine RBC (0) /HPF Urine WBC (0-4) /HPF Ur Squamous Epith Cells /LPF Urine Bacteria /LPF Urine Mucus /LPF Urine Trichomonas Urine Opiates Screen (Not Detect) Urine Fentanyl Screen (Not Detect) Ur Barbiturates Screen (Not Detect) Ur Phencyclidine Scrn (Not Detect) Ur Amphetamines Screen (Not Detect) U Benzodiazepines Scrn (Not Detect) [place] < 0.10 L (0.60-1.20) mmol/L Urine Cocaine Screen (Not Detect) U Marijuana (THC) Screen (Not Detect) Ethyl Alcohol < 10 mg/dL COVID-19 (ENDY) (Negative) COVID-19 Clin Com Discharge Plan Discharge Clinical Impression: UTI (urinary tract infection), Suicidal ideation, Depression Patient Disposition: Still a Patient Prescriptions: No Action quetiapine 25 mg Tablet 25 mg PO BID PRN (Reason: anxiety) 30 Days Qty: 45 0RF Rx Instructions: take 1-2 tabs twice a day as needed for anxiety ropinirole 0.5 mg Tablet 0.5 mg PO BEDTIME 30 Days Qty: 30 0RF valacyclovir 1 gram Tablet 1,000 mg PO BID 30 Days Qty: 60 0RF omeprazole 20 mg Capsule,Delayed Release(Dr/Ec) 20 mg PO DAILY@0630 30 Days Qty: 30 0RF albuterol sulfate 90 mcg/actuation HFA aerosol inhaler 2 puff inhalation Q4-6H PRN (Reason: shortness of breath or wheezing) 30 Days Qty: 8.5 0RF cholecalciferol (vitamin D3) 25 mcg (1,000 unit) Tablet 25 mcg PO DAILY 30 Days Qty: 30 0RF ferrous sulfate 324 mg (65 mg iron) Tablet,Delayed Release (Dr/Ec) 324 mg PO DAILY 30 Days Qty: 30 0RF oxcarbazepine 150 mg Tablet 150 mg PO BID 30 Days Qty: 60 0RF clonidine HCl 0.1 mg Tablet 0.5 mg PO BEDTIME 30 Days Qty: 150 0RF Protocol: Hold for SBP< HOLD for SBP < : 90 acetaminophen 325 mg Tablet 975 mg PO TID 7 Days Qty: 63 3RF hydroxyzine HCl 25 mg Tablet 25 mg PO BID PRN (Reason: Anxiety) 30 Days Qty: 60 0RF trazodone 100 mg tablet 150 mg PO BEDTIME 0RF olanzapine 10 mg tablet 5 mg PO BEDTIME 0RF gabapentin 100 mg capsule 200 mg PO BID 0RF oseltamivir 75 mg PO BID 0RF Flovent Diskus 100 mcg inhalation DAILY 0RF lithium carbonate 300 mg Capsule 300 mg PO BID 0RF cefuroxime axetil 500 mg tablet 500 mg PO BID Qty: 12 0RF prednisone 20 mg tablet 40 mg PO DAILY Qty: 6 0RF
--- NOTE | 2022-01-19 07:37 | PC.NURSE ---
patient appears to remain asleep at present respirations are even and unlabored patient appears in no distress
[2022-01-19] MEDS: Nitrofurantoin Monohyd/M-Cryst 100 MG CAPSULE PO (09:02)
--- NOTE | 2022-01-19 10:07 | PHA.MEDREC ---
Pharmacy Consult ? Medication Reconciliation Pharmacy has reviewed the medication reconciliation completed by Otis. Otis stated that patient brought in medications for review and want me to F/U with [facility] for the unconfirmed prescription. [facility] on had ABX and prednsione filled 01/11/22 x 5 days. Christianne Iglesias, PharmD
[2022-01-19] MEDS: Gabapentin 100 MG CAPSULE 200 MG PO (11:02)
[2022-01-19] MEDS: Albuterol Sulfate 90 MCG 8 GM INHALER 4 PUFF INHALE (11:02)
[2022-01-19] MEDS: Benzonatate 100 MG CAPSULE 200 MG PO (11:02)
[2022-01-19] MEDS: predniSONE 20 MG TABLET 60 MG PO ×2 (11:02→11:03)
[2022-01-19] MEDS: valACYclovir HCL 1,000 MG TABLET 1000 MG PO (11:03)
[2022-01-19] MEDS: Lithium Carbonate 300 MG CAPSULE PO (11:03)
[2022-01-19] MEDS: Albuterol Sulfate 90 MCG 8 GM INHALER 2 PUFF INHALE ×3 (12:55→21:15)
[2022-01-19 19:43] VITALS: BP 144/78; PULSE 98; RESP 20; TEMP 37.3; O2SAT 94
[2022-01-20] MEDS: traZODone HCL 50 MG TABLET 150 MG PO ×2 (00:11→21:00)
[2022-01-20] MEDS: Lithium Carbonate 300 MG CAPSULE PO ×3 (00:11→20:59)
[2022-01-20] MEDS: OLANZapine 5 MG TABLET PO ×2 (00:11→21:01)
[2022-01-20] MEDS: Gabapentin 100 MG CAPSULE 200 MG PO ×3 (00:12→21:01)
[2022-01-20] MEDS: valACYclovir HCL 1,000 MG TABLET 1000 MG PO ×3 (00:12→21:01)
[2022-01-20] MEDS: Acetaminophen 325 MG TABLET 975 MG PO ×3 (00:12→13:16)
[2022-01-20] MEDS: Nitrofurantoin Monohyd/M-Cryst 100 MG CAPSULE PO ×3 (00:12→21:01)
[2022-01-20 00:15] VITALS: BP 112/57; PULSE 74; RESP 20; TEMP 36.6; O2SAT 91
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
[2022-01-20 06:51] VITALS: BP 126/58; PULSE 75; RESP 20; TEMP 36.9; O2SAT 90
[2022-01-20 09:13] LABS: Estimated Average Glucose 114 mg/dL; Hemoglobin A1c % 5.6 %
[2022-01-20 09:16] LABS: Cholesterol 178 mg/dL; HDL Cholesterol 44 mg/dL; LDL Cholesterol Calculated 110 mg/dl; Magnesium 2.3 mg/dL (1.6-2.6); Triglycerides 122 mg/dL
[2022-01-20] MEDS: predniSONE 20 MG TABLET 60 MG PO (09:33)
[2022-01-20 09:38] LABS: Free T4 (Free Thyroxine) 1.07 ng/dL (0.71-1.85); Thyroid Stimulating Hormone 0.32 uIU/mL (0.32-4.0)
[2022-01-20] MEDS: Albuterol Sulfate 90 MCG 8 GM INHALER 2 PUFF INHALE ×4 (09:39→20:59)
[2022-01-20 10:07] LABS: Folate 9.9 ng/mL (> or = 4.0); Vitamin B12 413 pg/mL (200-900)
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
[2022-01-20] MEDS: Benzonatate 100 MG CAPSULE 200 MG PO (13:17)
[2022-01-20 17:34] VITALS: BP 132/61; PULSE 84; RESP 18; TEMP 36.6; O2SAT 92
[2022-01-20] MEDS: cloNIDine HCL 0.1 MG TABLET PO (21:00)
[2022-01-20] MEDS: rOPINIRole HCL 0.5 MG TABLET PO (21:01)
[2022-01-20] MEDS: OXcarbazepine 150 MG TABLET PO (21:01)
[2022-01-21 06:00] VITALS: BP 118/68; PULSE 82; RESP 18; TEMP 36.6; O2SAT 99
[2022-01-21] MEDS: Omeprazole 20 MG CAPSULE.DR PO (06:18)
[2022-01-21 07:00] VITALS: BMI 43.1
[2022-01-21] MEDS: Albuterol Sulfate 90 MCG 8 GM INHALER 2 PUFF INHALE ×2 (08:52→13:00)
[2022-01-21] MEDS: Acetaminophen 325 MG TABLET 975 MG PO (08:53)
[2022-01-21] MEDS: valACYclovir HCL 1,000 MG TABLET 1000 MG PO ×2 (08:53→20:53)
[2022-01-21] MEDS: Cholecalciferol (Vitamin D3) 25 MCG TABLET PO (08:53)
[2022-01-21] MEDS: Ferrous Sulfate 324 MG TABLET.DR PO (08:53)
[2022-01-21] MEDS: Lithium Carbonate 300 MG CAPSULE PO ×2 (08:53→20:53)
[2022-01-21] MEDS: predniSONE 20 MG TABLET 60 MG PO (08:53)
[2022-01-21] MEDS: OXcarbazepine 150 MG TABLET PO ×2 (08:54→20:52)
[2022-01-21] MEDS: Sertraline HCL 50 MG TABLET PO (08:54)
[2022-01-21] MEDS: Gabapentin 100 MG CAPSULE 200 MG PO ×3 (08:54→20:53)
[2022-01-21] MEDS: Nitrofurantoin Monohyd/M-Cryst 100 MG CAPSULE PO ×2 (08:54→20:53)
[2022-01-21] MEDS: Nicotine 21 MG PATCH.TD24 TRANSDERMA (08:56)
[2022-01-21 18:00] VITALS: BP 116/70; PULSE 73; RESP 19; TEMP 36.3; O2SAT 95
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
[2022-01-21] MEDS: traZODone HCL 50 MG TABLET 150 MG PO (20:52)
[2022-01-21] MEDS: OLANZapine 5 MG TABLET PO (20:53)
[2022-01-21] MEDS: cloNIDine HCL 0.1 MG TABLET PO (20:53)
[2022-01-21] MEDS: Acetaminophen 325 MG TABLET 650 MG PO (20:53)
[2022-01-21] MEDS: rOPINIRole HCL 0.5 MG TABLET PO (20:53)
[2022-01-22 06:00] VITALS: BP 121/64; PULSE 78; RESP 18; TEMP 36.5; O2SAT 97
[2022-01-22] MEDS: Omeprazole 20 MG CAPSULE.DR PO (06:36)
[2022-01-22] MEDS: Nitrofurantoin Monohyd/M-Cryst 100 MG CAPSULE PO ×2 (07:49→20:31)
[2022-01-22] MEDS: Acetaminophen 325 MG TABLET 650 MG PO ×2 (07:49→20:31)
[2022-01-22] MEDS: OXcarbazepine 150 MG TABLET PO ×2 (07:49→20:31)
[2022-01-22] MEDS: Fluticasone/Vilanterol 200/25 BLST.W.DEV 1 PUFF INHALE (07:49)
[2022-01-22] MEDS: Sertraline HCL 50 MG TABLET PO (07:49)
[2022-01-22] MEDS: Lithium Carbonate 300 MG CAPSULE PO (07:50)
[2022-01-22] MEDS: Gabapentin 100 MG CAPSULE 200 MG PO ×3 (07:50→20:31)
[2022-01-22] MEDS: Ferrous Sulfate 324 MG TABLET.DR PO (07:50)
[2022-01-22] MEDS: predniSONE 20 MG TABLET 60 MG PO (07:50)
[2022-01-22] MEDS: valACYclovir HCL 1,000 MG TABLET 1000 MG PO ×2 (07:50→20:31)
[2022-01-22] MEDS: Cholecalciferol (Vitamin D3) 25 MCG TABLET PO (07:50)
[2022-01-22] MEDS: Nicotine 21 MG PATCH.TD24 TRANSDERMA (07:51)
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
--- NOTE | 2022-01-22 14:14 | HO.PSYCHPN ---
Subjective Subjective Date of Service: 01/22/22 Reason For Visit: psych eval Interim History: Bhavana reports feeling tired-Gabapentin increase has been helpful, COPD sx she believes to be worsening-reviewed two recent medical hospitalizations, symptoms, and fears. Discussed asking for hospitalist consult which she agrees with. States she is prepared to titrate [place] and Olanzapine, will titrate to 600 mg bid of [place] and 7.5 mg Olanzapine. Medication Compliance: Yes Side effects from medications: No Attending Groups: Intermittent Review of Systems COPD Medical Review of Systems: unchanged Review of Systems Psychiatric: Reports abnormal sleep pattern, Reports anxiety, Reports change in appetite, Reports depression, Reports difficulty concentrating, Reports irritability, Reports anhedonia, Reports mood swings, Reports paranoia and Reports suicidal ideation Mental Status Exam Mental Status Exam Patient Appearance: Fatigued Patient Orientation: Person, Place, Time and Situation Level of Consciousness: Alert Patient Behavior: Talkative, Cooperative, Fatigued and Good Eye Contact Mood Description: Depressed, Anxious and Apprehensive Affect Description: Labile Patient Cognition Impaired: No Ability to Follow Directions: Good Speech Pattern: Spontaneous Speech Memory Description: Episodic Impaired Hallucinations: Auditory Delusions: Paranoid Ideation Perceptual Disturbances: Depersonalization and Derealization Thought Process: Rumination Thought Content: positive for Pimento, positive for Circumstantial, positive for Perseveration and positive for Suicidal Ideation Depressive Symptoms: Increased Anxiety, Insomnia, Increased Irritability, Difficulty Sleeping, Changes in Appetite, Crying Spells, Feelings of Worthlessness, Hopelessness, Unhappiness, Increased Fatigue, Thoughts of /Suicide, Low Self Esteem, Loss of Energy and Difficulty Concentrating Judgement: Fair Diagnostics Vital Signs (24Hr): Vital Signs - 24 hr 01/21/22 18:00 01/22/22 06:00 Temperature 97.4 F 97.7 F Pulse Rate 73 78 Respiratory Rate 19 18 Blood Pressure 116/70 121/64 Pulse Oximetry 95 97 BMI result Body Mass Index 43.1 Medications Medications Current Medications Acetaminophen (Acetaminophen 325 Mg Tablet) 650 mg PO BID [facility] Last Admin: 01/22/22 07:49 Dose: 650 mg Documented by: Al Hydroxide/Mg Hydroxide (Magnesium Hydrox/Alum Hydrox 30 Ml Oral.Susp) 30 ml PO Q6H PRN PRN Reason: Heartburn/Nausea Albuterol Sulfate (Albuterol Sulfate 90 Mcg 8 Gm Inhaler) 2 puff INHALE RQID PRN PRN Reason: shortness of breath Benzonatate (Benzonatate 100 Mg Capsule) 200 mg PO TID PRN PRN Reason: cough Last Admin: 01/20/22 13:17 Dose: 200 mg Documented by: Clonidine HCl (Clonidine Hcl 0.1 Mg Tablet) 0.1 mg PO BEDTIME [facility]; Protocol Last Admin: 01/21/22 20:53 Dose: 0.1 mg Documented by: Ferrous Sulfate (Ferrous Sulfate 324 Mg Tablet.) 324 mg PO DAILY [facility] Last Admin: 01/22/22 07:50 Dose: 324 mg Documented by: Fluticasone/Vilanterol (Fluticasone/Vilanterol 200/25 Blst.W.Dev) 1 puff INHALE RDAILY [facility] Last Admin: 01/22/22 07:49 Dose: 1 puff Documented by: Gabapentin (Gabapentin 100 Mg Capsule) 200 mg PO TID [facility] Last Admin: 01/22/22 14:05 Dose: 200 mg Documented by: Hydroxyzine HCl (Hydroxyzine Hcl 25 Mg Tablet) 25 mg PO BID PRN PRN Reason: Anxiety Hydroxyzine HCl (Hydroxyzine Hcl 25 Mg Tablet) 25 mg PO Q6H PRN PRN Reason: Anxiety [place] Carbonate ([place] Carbonate 300 Mg Capsule) 300 mg PO BID [facility] Last Admin: 01/22/22 07:50 Dose: 300 mg Documented by: Magnesium Hydroxide (Milk Of Magnesia 30 Ml Oral.Susp) 30 ml PO DAILY PRN PRN Reason: Constipation Nicotine (Nicotine 21 Mg Patch.Td24) 21 mg TRANSDERMA DAILY [facility] Last Admin: 01/22/22 07:51 Dose: 21 mg Documented by: Nitrofurantoin Macrocrystals (Nitrofurantoin Monohyd/M-Cryst 100 Mg Capsule) 100 mg PO BID [facility] Stop: 01/24/22 08:59 Last Admin: 01/22/22 07:49 Dose: 100 mg Documented by: Olanzapine (Olanzapine 5 Mg Tablet) 5 mg PO BEDTIME [facility] Last Admin: 01/21/22 20:53 Dose: 5 mg Documented by: Omeprazole (Omeprazole 20 Mg Capsule.) 20 mg PO DAILY@0630 [facility] Last Admin: 01/22/22 06:36 Dose: 20 mg Documented by: Oxcarbazepine (Oxcarbazepine 150 Mg Tablet) 150 mg PO BID [facility] Last Admin: 01/22/22 07:49 Dose: 150 mg Documented by: Prednisone (Prednisone 20 Mg Tablet) 60 mg PO DAILY [facility] Stop: 01/25/22 09:00 Last Admin: 01/22/22 07:50 Dose: 60 mg Documented by: Quetiapine Fumarate (Quetiapine Fumarate 25 Mg Tablet) 25 mg PO BID PRN PRN Reason: anxiety Ropinirole HCl (Ropinirole Hcl 0.5 Mg Tablet) 0.5 mg PO BEDTIME [facility] Last Admin: 01/21/22 20:53 Dose: 0.5 mg Documented by: Sertraline HCl (Sertraline Hcl 50 Mg Tablet) 50 mg PO DAILY [facility] Last Admin: 01/22/22 07:49 Dose: 50 mg Documented by: Trazodone HCl (Trazodone Hcl 50 Mg Tablet) 150 mg PO BEDTIME [facility] Last Admin: 01/21/22 20:52 Dose: 150 mg Documented by: Valacyclovir HCl (Valacyclovir Hcl 1,000 Mg Tablet) 1,000 mg PO BID [facility] Last Admin: 01/22/22 07:50 Dose: 1,000 mg Documented by: Vitamin D (Cholecalciferol (Vitamin D3) 25 Mcg Tablet) 25 mcg PO DAILY [facility] Last Admin: 01/22/22 07:50 Dose: 25 mcg Documented by: Allergies Allergies Allergy/AdvReac Type Severity Reaction Status Date / Time aspirin [Aspirin] Allergy Severe HIVES,THROAT Verified 10/13/21 04:51 SWELLS bee pollen [BEE STINGS] Allergy Severe ANAPHYLAXIS Verified 10/13/21 04:51 diphenhydramine Allergy Severe hives, Verified 10/13/21 04:51 [From BENADRYL ALLERGY] throat swells Penicillins [PCN] Allergy Severe HIVES Verified 10/13/21 04:51 THROAT SWELLS Sulfa (Sulfonamide Allergy Intermediate HIVES Verified 10/13/21 04:51 Antibiotics) [SULFA (SULFONAMIDE ANTIBIOTICS)] tramadol [TRAMADOL] Allergy Intermediate ITCHING Verified 10/13/21 04:51 latex [LATEX] Allergy Unknown UNKNOWN Verified 10/13/21 04:51 penicillin G Allergy Unknown Unknown Verified 10/13/21 04:51 levofloxacin [From Levaquin] Allergy Hives Verified 10/13/21 04:51 bee stings Allergy Unknown Unknown Uncoded 10/13/21 04:51 DairyCare Allergy Unknown Unknown Uncoded 10/13/21 04:51 sulfa drugs Allergy Unknown Unknown Uncoded 10/13/21 04:51 Assessment & Plan Assessment & Plan (1) Asthma-COPD overlap syndrome: Status: Acute Code(s): J44.9 - Chronic obstructive pulmonary disease, unspecified (2) PTSD (post-traumatic stress disorder): Status: Acute Code(s): F43.10 - Post-traumatic stress disorder, unspecified (3) Bipolar disorder: Qualifiers: Active/Remission status: currently active Current bipolar episode type: manic Current episode severity: severe Psychotic features: with psychotic features Qualified Code(s): F31.2 - Bipolar disorder, current episode manic severe with psychotic features Status: Acute Code(s): F31.9 - Bipolar disorder, unspecified Assessment and Plan: Increase [place] to 600 mg bid Increase Olanzapine to 7.5 mg hs Plan This is a 52 yo F with a PMH of multiple issues including COPD/Asthma who is admitted to the inpatient psychiatric unit. Medical consult requested for COPD Exacerbation, Cough, 2 recent medical admits 1. COPD/Asthma she is on prednisone + breo + scheduled albuterol inhalers currently she is not exhibiting any wheezing or respiratory distress Her vitals have been stable and she has been afebrile. Would recommend to continue her above medications. Will add on an expectorant to her regime. Can consider DuoNebs q4-6 hours for 24-48 hours. I do not feel that she needs to be transferred to the medical floor as this appears to be mild exacerbation. If she starts to have hypoxia, tachypnea, fevers or anything of concern, please reconsult or tigerconnect. Will sign off at this time. Thank you. I spent minutes with the patient and/or on the patient floor today, greater than?50% of which was spent counseling/coordinating care. Patient educated on: medication risk/benefits and therapeutic strategies Informed Consent: understands and further education needed Reason for contiued inpatient stay Substantial Risk for: harm to self, rapid decompensation and med/psych decompensation
[2022-01-22 18:00] VITALS: BP 125/64; PULSE 80
[2022-01-22 20:30] VITALS: BP 140/85; PULSE 87
[2022-01-22] MEDS: rOPINIRole HCL 0.5 MG TABLET PO (20:31)
[2022-01-22] MEDS: Lithium Carbonate 300 MG CAPSULE 600 MG PO (20:31)
[2022-01-22] MEDS: traZODone HCL 50 MG TABLET 150 MG PO (20:31)
[2022-01-22] MEDS: cloNIDine HCL 0.1 MG TABLET PO (20:31)
[2022-01-22] MEDS: OLANZapine 7.5 MG TABLET PO (20:31)
[2022-01-23 06:00] VITALS: BP 118/69; PULSE 65; RESP 18; TEMP 36.1; O2SAT 93
[2022-01-23] MEDS: Omeprazole 20 MG CAPSULE.DR PO (06:30)
[2022-01-23] MEDS: Sertraline HCL 50 MG TABLET PO (08:15)
[2022-01-23] MEDS: Cholecalciferol (Vitamin D3) 25 MCG TABLET PO (08:15)
[2022-01-23] MEDS: Gabapentin 100 MG CAPSULE 200 MG PO ×3 (08:15→20:43)
[2022-01-23] MEDS: OXcarbazepine 150 MG TABLET PO ×2 (08:15→20:42)
[2022-01-23] MEDS: Ferrous Sulfate 324 MG TABLET.DR PO (08:16)
[2022-01-23] MEDS: Lithium Carbonate 300 MG CAPSULE 600 MG PO ×2 (08:16→20:42)
[2022-01-23] MEDS: Nicotine 21 MG PATCH.TD24 TRANSDERMA (08:16)
[2022-01-23] MEDS: Acetaminophen 325 MG TABLET 650 MG PO ×2 (08:16→20:42)
[2022-01-23] MEDS: valACYclovir HCL 1,000 MG TABLET 1000 MG PO ×2 (08:16→20:43)
[2022-01-23] MEDS: Nitrofurantoin Monohyd/M-Cryst 100 MG CAPSULE PO ×2 (08:16→20:42)
[2022-01-23] MEDS: predniSONE 20 MG TABLET 60 MG PO (08:16)
[2022-01-23] MEDS: Fluticasone/Vilanterol 200/25 BLST.W.DEV 1 PUFF INHALE (08:20)
[2022-01-23] MEDS: guaiFENesin 100 MG/5 ML LIQUID PO ×2 (11:00→20:49)
[2022-01-23] MEDS: Albuterol Sulfate 90 MCG 8 GM INHALER 2 PUFF INHALE (13:15)
[2022-01-23] MEDS: hydrOXYzine HCL 25 MG TABLET PO (13:30)
[2022-01-23 13:32] LABS: MANUAL DIFF FLAG NO
[2022-01-23 13:33] LABS: Basophils Absolute Auto 0.1 X10*3/uL (0.0-0.2); Basophils Percent Auto 0.5 % (0-2); Eosinophils Percent Auto 0.1 % (0-4); Hematocrit 41.8 % (37.0-47.0); Imm Gran Abs Auto 0.05 X10*3/uL (0.00-0.03); Imm Gran Pct Auto 0.5 % (0.0-0.4); Lymphocytes Absolute Auto 1.2 X10*3/uL (1.2-4.9); Lymphocytes Percent Auto 12.4 % (20-40); Mean Corpuscular HGB Conc 31.1 g/dl (31.0-35.0); Mean Corpuscular Hemoglobin 29.9 pg (27.0-33.0); Mean Corpuscular Volume 96.1 fL (80.0-98.0); Mean Platelet Volume 9.7 fL (9.4-12.3); Monocytes Absolute Auto 0.1 X10*3/uL (0.1-1.2); Monocytes Percent Auto 0.9 % (2-11); Neutrophils Absolute Auto 8.5 x10*3/uL (2.0-8.3); Neutrophils Percent Auto 85.6 % (45-73); Platelet Count 269 X10*3/uL (160-400); Red Blood Count 4.35 X10*6/uL (4.20-5.50); Red Cell Distribution Width 13.5 % (11.0-16.0)
[2022-01-23 13:52] LABS: Alanine Aminotransferase 20 U/L (0-31); Albumin Level 4.4 g/dL (3.5-5.0); Alkaline Phosphatase 61 U/L (39-117); Anion Gap 13 (12-20); Aspartate Amino Transferase 8 U/L (5-31); Bilirubin Total 0.3 mg/dL (0.0-1.0); Blood Urea Nitrogen 20 mg/dL (9-16); Calcium 9.9 mg/dL (8.4-10.2); Carbon Dioxide 27 mmol/L (22-29); Chloride 104 mmol/L (96-108); Creatinine Clr Calc Pharmacy 91.7; Estimated Glomerular Filt Rate > 60; Glucose Random 144 mg/dL (60-115); Potassium 5.1 mmol/L (3.3-5.1); Sodium 139 mmol/L (135-145); Total Protein 7.1 g/dL (6.5-8.0)
[2022-01-23 14:33] VITALS: BP 136/64; PULSE 87; TEMP 36.7; O2SAT 93
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
[2022-01-23 19:18] VITALS: BP 128/71; PULSE 96; TEMP 36.5; O2SAT 95
[2022-01-23] MEDS: traZODone HCL 50 MG TABLET 150 MG PO (20:42)
[2022-01-23] MEDS: OLANZapine 7.5 MG TABLET PO (20:42)
[2022-01-23] MEDS: cloNIDine HCL 0.1 MG TABLET PO (20:43)
[2022-01-23] MEDS: rOPINIRole HCL 0.5 MG TABLET PO (20:43)
[2022-01-24 06:00] VITALS: BP 123/74; PULSE 63; RESP 18; TEMP 36.2; O2SAT 93
[2022-01-24] MEDS: Gabapentin 100 MG CAPSULE 200 MG PO ×3 (08:19→19:26)
[2022-01-24] MEDS: Fluticasone/Vilanterol 200/25 BLST.W.DEV 1 PUFF INHALE (08:27)
[2022-01-24] MEDS: Omeprazole 20 MG CAPSULE.DR PO (08:28)
[2022-01-24] MEDS: Ferrous Sulfate 324 MG TABLET.DR PO (08:28)
[2022-01-24] MEDS: Nicotine 21 MG PATCH.TD24 TRANSDERMA (08:28)
[2022-01-24] MEDS: OXcarbazepine 150 MG TABLET PO ×2 (08:28→19:25)
[2022-01-24] MEDS: Acetaminophen 325 MG TABLET 650 MG PO ×2 (08:28→19:26)
[2022-01-24] MEDS: predniSONE 20 MG TABLET 60 MG PO (08:28)
[2022-01-24] MEDS: Cholecalciferol (Vitamin D3) 25 MCG TABLET PO (08:28)
[2022-01-24] MEDS: Lithium Carbonate 300 MG CAPSULE 600 MG PO ×2 (08:28→19:26)
[2022-01-24] MEDS: valACYclovir HCL 1,000 MG TABLET 1000 MG PO ×2 (08:29→19:25)
[2022-01-24] MEDS: Sertraline HCL 50 MG TABLET PO (08:29)
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
[2022-01-24 18:00] VITALS: BP 119/54; PULSE 83; RESP 16; TEMP 36.3; O2SAT 94
[2022-01-24 19:14] VITALS: BP 134/73; PULSE 77
[2022-01-24] MEDS: traZODone HCL 100 MG TABLET 200 MG PO (19:25)
[2022-01-24] MEDS: cloNIDine HCL 0.1 MG TABLET PO (19:25)
[2022-01-24] MEDS: OLANZapine 10 MG TABLET PO (19:25)
[2022-01-24] MEDS: guaiFENesin 100 MG/5 ML LIQUID PO (19:25)
[2022-01-24] MEDS: rOPINIRole HCL 0.5 MG TABLET PO (19:26)
[2022-01-25 06:00] VITALS: BP 135/72; PULSE 72; TEMP 36.6; O2SAT 98
[2022-01-25] MEDS: Omeprazole 20 MG CAPSULE.DR PO (06:47)
[2022-01-25] MEDS: Gabapentin 100 MG CAPSULE 200 MG PO ×3 (08:51→21:30)
[2022-01-25] MEDS: Sertraline HCL 50 MG TABLET PO (08:52)
[2022-01-25] MEDS: Nicotine 21 MG PATCH.TD24 TRANSDERMA (08:52)
[2022-01-25] MEDS: Lithium Carbonate 300 MG CAPSULE 600 MG PO ×2 (08:53→21:33)
[2022-01-25] MEDS: Acetaminophen 325 MG TABLET 650 MG PO ×2 (08:54→21:34)
[2022-01-25] MEDS: valACYclovir HCL 1,000 MG TABLET 1000 MG PO ×2 (08:54→21:33)
[2022-01-25] MEDS: OXcarbazepine 150 MG TABLET PO ×2 (08:54→21:33)
[2022-01-25] MEDS: predniSONE 20 MG TABLET 60 MG PO (08:55)
[2022-01-25] MEDS: Cholecalciferol (Vitamin D3) 25 MCG TABLET PO (08:55)
[2022-01-25] MEDS: Ferrous Sulfate 324 MG TABLET.DR PO (08:55)
[2022-01-25] MEDS: Fluticasone/Vilanterol 200/25 BLST.W.DEV 1 PUFF INHALE (09:06)
[2022-01-25 11:57] LABS: Oxcarbazepine <1.0 mcg/mL (8.0-35.0)
[2022-01-25] MEDS: hydrOXYzine HCL 25 MG TABLET PO (14:28)
[2022-01-25] MEDS: QUEtiapine Fumarate 25 MG TABLET PO (15:25)
--- NOTE | 2022-01-25 16:02 | HO.PSYCHPN ---
Subjective Subjective Date of Service: 01/25/22 Reason For Visit: psych eval Subjective Notes: Conditional Voluntary Healthcare Proxy: No Guardianship: No Medical Problems Affecting Mental Status: No Interim History: Bhavana reports a difficult weekend, however reports that increases in Olanzapine and Trazodone over the weekend were specifically helpful-sleep quality has improved and she is feeling much better today. Reviewed diagnostics, BUN elevated-encouraged fluids, chest x-ray negative. Reports decrease in respiratory symptoms as well. Discussed discharge-pt thinks will be good-will attempt to get in a few more nights of stable sleep so she can continue to participate in milieu to process losses which were precipitants to admission. Medication Compliance: Yes Side effects from medications: No Attending Groups: Intermittent Review of Systems Acute medical concerns: No Medical Review of Systems: unchanged Review of Systems Psychiatric: Reports depression, Reports difficulty concentrating, Reports irritability, Reports anhedonia, Reports mood swings, Reports suicidal ideation (denies) and Reports other (grief-two recent losses of step-sister and friend) Mental Status Exam Mental Status Exam Patient Appearance: Appropriate Patient Orientation: Person, Place, Time and Situation Level of Consciousness: Alert Patient Behavior: Appropriate, Talkative, Cooperative and Good Eye Contact Mood Description: Anxious and Sad Affect Description: Flat Patient Cognition Impaired: No Ability to Follow Directions: Good Speech Pattern: Spontaneous Speech Memory Description: Intact Hallucinations: None Delusions: Not Present Perceptual Disturbances: Depersonalization and Derealization Thought Process: Intact Thought Content: positive for Intact Depressive Symptoms: Increased Anxiety, Insomnia, Diff. Making Decisions, Increased Irritability, Difficulty Sleeping, Loss of Int. in Activity, Feelings of Worthlessness, Hopelessness, Isolating-Friends/Family, Feelings of Guilt (and grief), Unhappiness, Increased Fatigue, Thoughts of /Suicide (denies), Loss of Energy and Difficulty Concentrating Judgement: Fair Diagnostics Vital Signs (24Hr): Vital Signs - 24 hr 01/24/22 18:00 01/24/22 19:14 01/25/22 06:00 Temperature 97.3 F 97.8 F Pulse Rate 83 77 72 Respiratory Rate 16 Blood Pressure 119/54 L 134/73 135/72 Pulse Oximetry 94 98 BMI result Body Mass Index 43.1 Labs Results: 01/23/22 13:14 01/23/22 13:14 Labs: Laboratory Results - last 48 hr 01/19/22 05:41 Oxcarbazepine <1.0 L Imaging Radiology Impressions: ITS Impressions Chest X-Ray 01/23/22 12:50 IMPRESSION: No evidence for acute disease in the chest. Medications Medications Current Medications Acetaminophen (Acetaminophen 325 Mg Tablet) 650 mg PO BID [facility] Last Admin: 01/25/22 08:54 Dose: 650 mg Documented by: Al Hydroxide/Mg Hydroxide (Magnesium Hydrox/Alum Hydrox 30 Ml Oral.Susp) 30 ml PO Q6H PRN PRN Reason: Heartburn/Nausea Albuterol Sulfate (Albuterol Sulfate 90 Mcg 8 Gm Inhaler) 2 puff INHALE RQID PRN PRN Reason: shortness of breath Last Admin: 01/23/22 13:15 Dose: 2 puff Documented by: Benzonatate (Benzonatate 100 Mg Capsule) 200 mg PO TID PRN PRN Reason: cough Last Admin: 01/20/22 13:17 Dose: 200 mg Documented by: Clonidine HCl (Clonidine Hcl 0.2 Mg Tablet) 0.2 mg PO BEDTIME [facility]; Protocol Ferrous Sulfate (Ferrous Sulfate 324 Mg Tablet.Dr) 324 mg PO DAILY [facility] Last Admin: 01/25/22 08:55 Dose: 324 mg Documented by: Fluticasone/Vilanterol (Fluticasone/Vilanterol 200/25 Blst.W.Dev) 1 puff INHALE RDAILY [facility] Last Admin: 01/25/22 09:06 Dose: 1 puff Documented by: Gabapentin (Gabapentin 100 Mg Capsule) 200 mg PO TID [facility] Last Admin: 01/25/22 14:27 Dose: 200 mg Documented by: Guaifenesin (Guaifenesin 100 Mg/5 Ml Liquid) 5 ml PO Q6H PRN PRN Reason: Cough Last Admin: 01/24/22 19:25 Dose: 5 ml Documented by: Hydroxyzine HCl (Hydroxyzine Hcl 25 Mg Tablet) 25 mg PO BID PRN PRN Reason: Anxiety Last Admin: 01/25/22 14:28 Dose: 25 mg Documented by: Hydroxyzine HCl (Hydroxyzine Hcl 25 Mg Tablet) 25 mg PO Q6H PRN PRN Reason: Anxiety Last Admin: 01/23/22 13:30 Dose: 25 mg Documented by: [place] Carbonate ([place] Carbonate 300 Mg Capsule) 600 mg PO BID [facility] Last Admin: 01/25/22 08:53 Dose: 600 mg Documented by: Magnesium Hydroxide (Milk Of Magnesia 30 Ml Oral.Susp) 30 ml PO DAILY PRN PRN Reason: Constipation Nicotine (Nicotine 21 Mg Patch.Td24) 21 mg TRANSDERMA DAILY [facility] Last Admin: 01/25/22 08:52 Dose: 21 mg Documented by: Olanzapine (Olanzapine 10 Mg Tablet) 10 mg PO BEDTIME [facility] Last Admin: 01/24/22 19:25 Dose: 10 mg Documented by: Omeprazole (Omeprazole 20 Mg Capsule.Dr) 20 mg PO DAILY@0630 [facility] Last Admin: 01/25/22 06:47 Dose: 20 mg Documented by: Oxcarbazepine (Oxcarbazepine 150 Mg Tablet) 150 mg PO BID [facility] Last Admin: 01/25/22 08:54 Dose: 150 mg Documented by: Quetiapine Fumarate (Quetiapine Fumarate 25 Mg Tablet) 25 mg PO BID PRN PRN Reason: anxiety Last Admin: 01/25/22 15:25 Dose: 25 mg Documented by: Ropinirole HCl (Ropinirole Hcl 0.5 Mg Tablet) 0.5 mg PO BEDTIME [facility] Last Admin: 01/24/22 19:26 Dose: 0.5 mg Documented by: Sertraline HCl (Sertraline Hcl 50 Mg Tablet) 50 mg PO DAILY [facility] Last Admin: 01/25/22 08:52 Dose: 50 mg Documented by: Trazodone HCl (Trazodone Hcl 100 Mg Tablet) 200 mg PO BEDTIME [facility] Last Admin: 01/24/22 19:25 Dose: 200 mg Documented by: Valacyclovir HCl (Valacyclovir Hcl 1,000 Mg Tablet) 1,000 mg PO BID [facility] Last Admin: 01/25/22 08:54 Dose: 1,000 mg Documented by: Vitamin D (Cholecalciferol (Vitamin D3) 25 Mcg Tablet) 25 mcg PO DAILY [facility] Last Admin: 01/25/22 08:55 Dose: 25 mcg Documented by: Allergies Allergies Allergy/AdvReac Type Severity Reaction Status Date / Time aspirin [Aspirin] Allergy Severe HIVES,THROAT Verified 10/13/21 04:51 SWELLS bee pollen [BEE STINGS] Allergy Severe ANAPHYLAXIS Verified 10/13/21 04:51 diphenhydramine Allergy Severe hives, Verified 10/13/21 04:51 [From BENADRYL ALLERGY] throat swells Penicillins [PCN] Allergy Severe HIVES Verified 10/13/21 04:51 THROAT SWELLS Sulfa (Sulfonamide Allergy Intermediate HIVES Verified 10/13/21 04:51 Antibiotics) [SULFA (SULFONAMIDE ANTIBIOTICS)] tramadol [TRAMADOL] Allergy Intermediate ITCHING Verified 10/13/21 04:51 latex [LATEX] Allergy Unknown UNKNOWN Verified 10/13/21 04:51 penicillin G Allergy Unknown Unknown Verified 10/13/21 04:51 levofloxacin [From Levaquin] Allergy Hives Verified 10/13/21 04:51 bee stings Allergy Unknown Unknown Uncoded 10/13/21 04:51 DairyCare Allergy Unknown Unknown Uncoded 10/13/21 04:51 sulfa drugs Allergy Unknown Unknown Uncoded 10/13/21 04:51 Assessment & Plan Assessment & Plan (1) Asthma-COPD overlap syndrome: Status: Acute Code(s): J44.9 - Chronic obstructive pulmonary disease, unspecified (2) PTSD (post-traumatic stress disorder): Status: Acute Code(s): F43.10 - Post-traumatic stress disorder, unspecified (3) Bipolar disorder: Qualifiers: Active/Remission status: currently active Current bipolar episode type: manic Current episode severity: severe Psychotic features: with psychotic features Qualified Code(s): F31.2 - Bipolar disorder, current episode manic severe with psychotic features Status: Acute Code(s): F31.9 - Bipolar disorder, unspecified Assessment and Plan: Increase [place] to 600 mg bid Increase Olanzapine to 7.5 mg hs Plan 52 yo female, hx of PTSD, Bipolar disorder with current increase in depressive symptoms with SI, plan, means.? Pt has been off medications for ~1 week. Reports becoming aware of the recent of her step sister in Aug 2021 from choking and reports she witnessed the of a friend in a robbery at the local [employer]. Two recent medical hospitalizations for COPD exacerbation, flu symptoms, asthma, pt believes that these were a result of an adverse response from having a COVID booster injection. 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 Pt has returned to Prednisone for 5 days. Monitor mood/behavior during this time of increased risk. 01/23: Will continue on prednisone and macrobid, nebulizer tx, cpap ordered. Will order labs for CMP, CBC, and chest xray due to pt complaining of SOB. No med changes. 01/24: increase olanzapine to 10 mg QHS, increase trazodone to 200 mg QHS. 01/25/22: Continue current regime. Tentative discharge 01/28/22. I spent minutes with the patient and/or on the patient floor today, greater than?50% of which was spent counseling/coordinating care. Patient educated on: medication risk/benefits, therapeutic strategies and medical condition Informed Consent: understands and further education needed Reason for contiued inpatient stay Substantial Risk for: harm to self, inability to function, rapid decompensation and med/psych decompensation
[2022-01-25 16:15] VITALS: BP 138/60; PULSE 85; TEMP 36.3
[2022-01-25] MEDS: OLANZapine 10 MG TABLET PO (21:31)
[2022-01-25] MEDS: cloNIDine HCL 0.2 MG TABLET PO (21:31)
[2022-01-25] MEDS: rOPINIRole HCL 0.5 MG TABLET PO (21:32)
[2022-01-25] MEDS: traZODone HCL 100 MG TABLET 200 MG PO (21:33)
[2022-01-26 06:00] VITALS: BP 131/67; PULSE 74; RESP 18; TEMP 36.3; O2SAT 96
[2022-01-26] MEDS: Omeprazole 20 MG CAPSULE.DR PO (06:11)
[2022-01-26] MEDS: Fluticasone/Vilanterol 200/25 BLST.W.DEV 1 PUFF INHALE (08:26)
[2022-01-26] MEDS: Nicotine 21 MG PATCH.TD24 TRANSDERMA (08:26)
[2022-01-26] MEDS: Gabapentin 100 MG CAPSULE 200 MG PO ×3 (08:27→19:22)
[2022-01-26] MEDS: Acetaminophen 325 MG TABLET 650 MG PO ×2 (08:27→19:22)
[2022-01-26] MEDS: OXcarbazepine 150 MG TABLET PO ×2 (08:27→19:21)
[2022-01-26] MEDS: Sertraline HCL 50 MG TABLET PO (08:27)
[2022-01-26] MEDS: Cholecalciferol (Vitamin D3) 25 MCG TABLET PO (08:28)
[2022-01-26] MEDS: Lithium Carbonate 300 MG CAPSULE 600 MG PO ×2 (08:28→19:22)
[2022-01-26] MEDS: Ferrous Sulfate 324 MG TABLET.DR PO (08:28)
[2022-01-26] MEDS: valACYclovir HCL 1,000 MG TABLET 1000 MG PO ×2 (08:28→19:22)
[2022-01-26 18:00] VITALS: BP 112/58; PULSE 89
--- NOTE | 2022-01-26 18:24 | P.PNPSI_ITS ---
Subjective Subjective Date of Service: 01/26/22 Reason For Visit: psych eval Interim History: Discussed in team. Pt reporting RLS symptoms. Team believes it may be a SE of hydroxyzine. Discussed with pt and she agrees this may be a significant possiblity-able to relate several symptoms post hydroxyzine dosing of RLS. Discussed options. Planning discharge for 01/28/22. Medication Compliance: Yes Side effects from medications: Yes (? RLS sx from hydroxyzine) Attending Groups: Yes Review of Systems Acute medical concerns: No Medical Review of Systems: unchanged Review of Systems Psychiatric: Reports abnormal sleep pattern (improving per pt) and Reports anxiety Mental Status Exam Mental Status Exam Patient Appearance: Appropriate Patient Orientation: Person, Place, Time and Situation Level of Consciousness: Alert Patient Behavior: Talkative and Good Eye Contact Mood Description: Apprehensive Affect Description: Constricted Patient Cognition Impaired: No Ability to Follow Directions: Good Speech Pattern: Spontaneous Speech Memory Description: Intact Hallucinations: None Delusions: Not Present Thought Process: Distracted and Goal Oriented Thought Content: positive for [place], positive for Circumstantial and positive for Suicidal Ideation (denies) Depressive Symptoms: Increased Anxiety, Difficulty Sleeping (reports improving sleep pattern), Thoughts of /Suicide (denies) and Loss of Energy Judgement: Good Diagnostics Vital Signs (24Hr): Vital Signs - 24 hr 01/26/22 06:00 Temperature 97.4 F Pulse Rate 74 Respiratory Rate 18 Blood Pressure 131/67 Pulse Oximetry 96 BMI result Body Mass Index 43.1 Labs Results: 01/23/22 13:14 01/23/22 13:14 Labs: Laboratory Results - last 48 hr 01/19/22 05:41 Oxcarbazepine <1.0 L Imaging Radiology Impressions: ITS Impressions Chest X-Ray 01/23/22 12:50 IMPRESSION: No evidence for acute disease in the chest. Medications Medications Current Medications Acetaminophen (Acetaminophen 325 Mg Tablet) 650 mg PO BID [facility] Last Admin: 01/26/22 08:27 Dose: 650 mg Documented by: Al Hydroxide/Mg Hydroxide (Magnesium Hydrox/Alum Hydrox 30 Ml Oral.Susp) 30 ml PO Q6H PRN PRN Reason: Heartburn/Nausea Albuterol Sulfate (Albuterol Sulfate 90 Mcg 8 Gm Inhaler) 2 puff INHALE RQID PRN PRN Reason: shortness of breath Last Admin: 01/23/22 13:15 Dose: 2 puff Documented by: Benzonatate (Benzonatate 100 Mg Capsule) 200 mg PO TID PRN PRN Reason: cough Last Admin: 01/20/22 13:17 Dose: 200 mg Documented by: Clonidine HCl (Clonidine Hcl 0.2 Mg Tablet) 0.2 mg PO BEDTIME [facility]; Protocol Last Admin: 01/25/22 21:31 Dose: 0.2 mg Documented by: Ferrous Sulfate (Ferrous Sulfate 324 Mg Tablet.) 324 mg PO DAILY [facility] Last Admin: 01/26/22 08:28 Dose: 324 mg Documented by: Fluticasone/Vilanterol (Fluticasone/Vilanterol 200/25 Blst.W.Dev) 1 puff INHALE RDAILY [facility] Last Admin: 01/26/22 08:26 Dose: 1 puff Documented by: Gabapentin (Gabapentin 100 Mg Capsule) 200 mg PO TID [facility] Last Admin: 01/26/22 14:09 Dose: 200 mg Documented by: Guaifenesin (Guaifenesin 100 Mg/5 Ml Liquid) 5 ml PO Q6H PRN PRN Reason: Cough Last Admin: 01/24/22 19:25 Dose: 5 ml Documented by: Hydroxyzine HCl (Hydroxyzine Hcl 25 Mg Tablet) 25 mg PO BID PRN PRN Reason: Anxiety Last Admin: 01/25/22 14:28 Dose: 25 mg Documented by: Hydroxyzine HCl (Hydroxyzine Hcl 25 Mg Tablet) 25 mg PO Q6H PRN PRN Reason: Anxiety Last Admin: 01/23/22 13:30 Dose: 25 mg Documented by: [place] Carbonate ([place] Carbonate 300 Mg Capsule) 600 mg PO BID [facility] Last Admin: 01/26/22 08:28 Dose: 600 mg Documented by: Magnesium Hydroxide (Milk Of Magnesia 30 Ml Oral.Susp) 30 ml PO DAILY PRN PRN Reason: Constipation Nicotine (Nicotine 21 Mg Patch.Td24) 21 mg TRANSDERMA DAILY [facility] Last Admin: 01/26/22 08:26 Dose: 21 mg Documented by: Olanzapine (Olanzapine 10 Mg Tablet) 10 mg PO BEDTIME [facility] Last Admin: 01/25/22 21:31 Dose: 10 mg Documented by: Omeprazole (Omeprazole 20 Mg Capsule.) 20 mg PO DAILY@0630 [facility] Last Admin: 01/26/22 06:11 Dose: 20 mg Documented by: Oxcarbazepine (Oxcarbazepine 150 Mg Tablet) 150 mg PO BID [facility] Last Admin: 01/26/22 08:27 Dose: 150 mg Documented by: Quetiapine Fumarate (Quetiapine Fumarate 25 Mg Tablet) 25 mg PO BID PRN PRN Reason: anxiety Last Admin: 01/25/22 15:25 Dose: 25 mg Documented by: Ropinirole HCl (Ropinirole Hcl 0.5 Mg Tablet) 0.5 mg PO BEDTIME [facility] Last Admin: 01/25/22 21:32 Dose: 0.5 mg Documented by: Sertraline HCl (Sertraline Hcl 50 Mg Tablet) 50 mg PO DAILY [facility] Last Admin: 01/26/22 08:27 Dose: 50 mg Documented by: Trazodone HCl (Trazodone Hcl 100 Mg Tablet) 200 mg PO BEDTIME [facility] Last Admin: 01/25/22 21:33 Dose: 200 mg Documented by: Valacyclovir HCl (Valacyclovir Hcl 1,000 Mg Tablet) 1,000 mg PO BID [facility] Last Admin: 01/26/22 08:28 Dose: 1,000 mg Documented by: Vitamin D (Cholecalciferol (Vitamin D3) 25 Mcg Tablet) 25 mcg PO DAILY [facility] Last Admin: 01/26/22 08:28 Dose: 25 mcg Documented by: Allergies Allergies Allergy/AdvReac Type Severity Reaction Status Date / Time aspirin [Aspirin] Allergy Severe HIVES,THROAT Verified 10/13/21 04:51 SWELLS bee pollen [BEE STINGS] Allergy Severe ANAPHYLAXIS Verified 10/13/21 04:51 diphenhydramine Allergy Severe hives, Verified 10/13/21 04:51 [From BENADRYL ALLERGY] throat swells Penicillins [PCN] Allergy Severe HIVES Verified 10/13/21 04:51 THROAT SWELLS Sulfa (Sulfonamide Allergy Intermediate HIVES Verified 10/13/21 04:51 Antibiotics) [SULFA (SULFONAMIDE ANTIBIOTICS)] tramadol [TRAMADOL] Allergy Intermediate ITCHING Verified 10/13/21 04:51 latex [LATEX] Allergy Unknown UNKNOWN Verified 10/13/21 04:51 penicillin G Allergy Unknown Unknown Verified 10/13/21 04:51 levofloxacin [From Levaquin] Allergy Hives Verified 10/13/21 04:51 bee stings Allergy Unknown Unknown Uncoded 10/13/21 04:51 DairyCare Allergy Unknown Unknown Uncoded 10/13/21 04:51 sulfa drugs Allergy Unknown Unknown Uncoded 10/13/21 04:51 Assessment & Plan Assessment & Plan (1) Asthma-COPD overlap syndrome: Status: Acute Code(s): J44.9 - Chronic obstructive pulmonary disease, unspecified (2) PTSD (post-traumatic stress disorder): Status: Acute Code(s): F43.10 - Post-traumatic stress disorder, unspecified (3) Bipolar disorder: Qualifiers: Active/Remission status: currently active Current bipolar episode type: manic Current episode severity: severe Psychotic features: with psychotic features Qualified Code(s): F31.2 - Bipolar disorder, current episode manic severe with psychotic features Status: Acute Code(s): F31.9 - Bipolar disorder, unspecified Plan 52 yo female, hx of PTSD, Bipolar disorder with current increase in depressive symptoms with SI, plan, means.? Pt has been off medications for ~1 week. Reports becoming aware of the recent of her step sister in Aug 2021 from choking and reports she witnessed the of a friend in a robbery at the local [employer]. Two recent medical hospitalizations for COPD exacerbation, flu symptoms, asthma, pt believes that these were a result of an adverse response from having a COVID booster injection. 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 Pt has returned to Prednisone for 5 days. Monitor mood/behavior during this time of increased risk. 01/23: Will continue on prednisone and macrobid, nebulizer tx, cpap ordered. Will order labs for CMP, CBC, and chest xray due to pt complaining of SOB. No med changes. 01/24: increase olanzapine to 10 mg QHS, increase trazodone to 200 mg QHS. 01/25/22: Continue current regime. Tentative discharge 01/28/22. 01/26/22: Discontinue hydroxyzine Gabapentin 100 mg tid prn neuropathic pain Discharge 01/28/22. I spent minutes with the patient and/or on the patient floor today, greater than?50% of which was spent counseling/coordinating care. Patient educated on: medication risk/benefits and therapeutic strategies Informed Consent: understands Reason for contiued inpatient stay Substantial Risk for: harm to self, inability to function, rapid decompensation and med/psych decompensation
[2022-01-26] MEDS: cloNIDine HCL 0.2 MG TABLET PO (19:21)
[2022-01-26] MEDS: rOPINIRole HCL 0.5 MG TABLET PO (19:22)
[2022-01-26] MEDS: OLANZapine 10 MG TABLET PO (19:22)
[2022-01-26] MEDS: traZODone HCL 100 MG TABLET 200 MG PO (19:22)
[2022-01-27 06:00] VITALS: BP 123/72; PULSE 81; RESP 19; TEMP 37.1; O2SAT 91
[2022-01-27] MEDS: Omeprazole 20 MG CAPSULE.DR PO (06:34)
[2022-01-27] MEDS: Nicotine 21 MG PATCH.TD24 TRANSDERMA (08:46)
[2022-01-27] MEDS: valACYclovir HCL 1,000 MG TABLET 1000 MG PO ×2 (08:47→20:40)
[2022-01-27] MEDS: Sertraline HCL 50 MG TABLET PO (08:47)
[2022-01-27] MEDS: Lithium Carbonate 300 MG CAPSULE 600 MG PO ×2 (08:47→20:40)
[2022-01-27] MEDS: Acetaminophen 325 MG TABLET 650 MG PO ×2 (08:47→20:39)
[2022-01-27] MEDS: Gabapentin 100 MG CAPSULE 200 MG PO ×3 (08:48→20:40)
[2022-01-27] MEDS: Gabapentin 100 MG CAPSULE PO ×2 (08:48→11:45)
[2022-01-27] MEDS: Cholecalciferol (Vitamin D3) 25 MCG TABLET PO (08:49)
[2022-01-27] MEDS: OXcarbazepine 150 MG TABLET PO ×2 (08:49→20:40)
[2022-01-27] MEDS: Ferrous Sulfate 324 MG TABLET.DR PO (08:49)
[2022-01-27] MEDS: Fluticasone/Vilanterol 200/25 BLST.W.DEV 1 PUFF INHALE (10:06)
[2022-01-27] MEDS: Fluconazole 150 MG TABLET PO (13:19)
[2022-01-27 16:46] VITALS: BP 121/64; PULSE 68; RESP 16; TEMP 36.5; O2SAT 93
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
[2022-01-27] MEDS: traZODone HCL 100 MG TABLET 200 MG PO (20:39)
[2022-01-27] MEDS: cloNIDine HCL 0.2 MG TABLET PO (20:40)
[2022-01-27] MEDS: OLANZapine 10 MG TABLET PO (20:40)
[2022-01-27] MEDS: rOPINIRole HCL 0.5 MG TABLET PO (20:40)
[2022-01-28 06:00] VITALS: BP 119/71; PULSE 73; RESP 17; TEMP 36.1; O2SAT 94
[2022-01-28] MEDS: Omeprazole 20 MG CAPSULE.DR PO (06:39)
[2022-01-28] MEDS: OXcarbazepine 150 MG TABLET PO (08:32)
[2022-01-28] MEDS: Acetaminophen 325 MG TABLET 650 MG PO (08:33)
[2022-01-28] MEDS: Sertraline HCL 50 MG TABLET PO (08:33)
[2022-01-28] MEDS: valACYclovir HCL 1,000 MG TABLET 1000 MG PO (08:33)
[2022-01-28] MEDS: Cholecalciferol (Vitamin D3) 25 MCG TABLET PO (08:33)
[2022-01-28] MEDS: Ferrous Sulfate 324 MG TABLET.DR PO (08:33)
[2022-01-28] MEDS: Lithium Carbonate 300 MG CAPSULE 600 MG PO (08:33)
[2022-01-28] MEDS: Fluticasone/Vilanterol 200/25 BLST.W.DEV 1 PUFF INHALE (08:34)
[2022-01-28] MEDS: Gabapentin 100 MG CAPSULE 200 MG PO (08:34)
[2022-01-28] MEDS: Nicotine 21 MG PATCH.TD24 TRANSDERMA (08:54)
[2022-01-28 09:03] LABS: Lithium 0.63 mmol/L (0.60-1.20)
[2022-01-28 09:08] LABS: Anion Gap 17 (12-20); Blood Urea Nitrogen 18 mg/dL (9-16); Calcium 9.7 mg/dL (8.4-10.2); Carbon Dioxide 24 mmol/L (22-29); Chloride 101 mmol/L (96-108); Creatinine Clr Calc Pharmacy 129.2; Estimated Glomerular Filt Rate > 60; Glucose Random 90 mg/dL (60-115); Potassium 4.6 mmol/L (3.3-5.1); Sodium 137 mmol/L (135-145)
[2022-01-28 09:31] LABS: Thyroid Stimulating Hormone 2.32 uIU/mL (0.32-4.0)
--- NOTE | 2022-01-28 12:20 | P.DS_ITS ---
DS: Providers Provider Date of Service: 01/28/22 Date of admission: 01/19/22 14:34 Date of discharge: 01/28/22 Primary care physician: Nonstaff Physician Admitting clinician: Reina Lyle Attending physician on admission: Reina Lyle Consults: 01/22/22 10:11 Consult to Hospitalist Routine Consulting Provider: Hospitalist Reason For Exam: COPD exacerbation, cough, 2 recent medical admits Attending physician on discharge: Reina Lyle Discharging clinician: Reina Lyle DS: Diagnosis Discharge Diagnosis (1) Bipolar disorder: Status: Acute (2) PTSD (post-traumatic stress disorder): Status: Acute (3) Asthma-COPD overlap syndrome: Status: Acute DS: Medications Discharge Medications Home Medications: Previous Rx's Medication Instructions Recorded albuterol sulfate 90 mcg/actuation 2 puff INHALATION Q4-6H PRN 30 10/29/21 aerosol inhaler Days #8.5 g valacyclovir 1 gram tablet 1,000 mg PO BID 30 Days #60 tab 10/29/21 cholecalciferol (vitamin D3) 25 25 mcg PO DAILY #30 tab 01/28/22 mcg (1,000 unit) tablet clonidine HCl 0.2 mg tablet 0.2 mg PO BEDTIME #30 tab 01/28/22 ferrous sulfate 324 mg (65 mg 324 mg PO DAILY #30 tab 01/28/22 iron) tablet,delayed release gabapentin 100 mg capsule 100 mg PO TID PRN #90 cap 01/28/22 gabapentin 100 mg capsule 200 mg PO 0900,1300,2100 #180 cap 01/28/22 lithium carbonate 300 mg capsule 600 mg PO BID #120 cap 01/28/22 olanzapine 10 mg tablet 10 mg PO BEDTIME #30 tab 01/28/22 omeprazole 20 mg capsule,delayed 20 mg PO DAILY@0630 #30 cap 01/28/22 release oxcarbazepine 150 mg tablet 150 mg PO BID #60 tab 01/28/22 ropinirole 0.5 mg tablet 0.5 mg PO BEDTIME #30 tab 01/28/22 sertraline 50 mg tablet 50 mg PO DAILY #30 tab 01/28/22 trazodone 100 mg tablet 200 mg PO BEDTIME #60 tab 01/28/22 Mental Status Exam Mental Status Exam Patient Appearance: Appropriate Patient Orientation: Person, Place, Time and Situation Level of Consciousness: Alert Patient Behavior: Talkative and Good Eye Contact Mood Description: Apprehensive Affect Description: Constricted Patient Cognition Impaired: No Ability to Follow Directions: Good Speech Pattern: Spontaneous Speech Memory Description: Intact Hallucinations: None Delusions: Not Present Thought Process: Distracted and Goal Oriented Thought Content: positive for [place], positive for Circumstantial and positive for Suicidal Ideation (denies) Depressive Symptoms: Increased Anxiety, Difficulty Sleeping (reports improving sleep pattern), Thoughts of /Suicide (denies) and Loss of Energy Judgement: Good Data Data Completed and Pending Completed studies during hospitalization [Text1]: 01/19/22 01/23/22 01/23/22 05:41 13:14 13:14 WBC 10.0 RBC 4.35 Hgb 13.0 Hct 41.8 MCV 96.1 MCH 29.9 MCHC 31.1 RDW 13.5 Plt Count 269 MPV 9.7 Immature Gran % (Auto) 0.5 H Neut % (Auto) 85.6 H Lymph % (Auto) 12.4 L [place] % (Auto) 0.9 L Eos % (Auto) 0.1 Baso % (Auto) 0.5 Lymph # (Auto) 1.2 [place] # (Auto) 0.1 Eos # (Auto) 0.0 Baso # (Auto) 0.1 Abs Immat Gran (auto) 0.05 H Absolute Neuts (auto) 8.5 H Absolute Nucleated RBC 0.000 Nucleated RBC % (auto) 0.0 Sodium 139 Potassium 5.1 Chloride 104 Carbon Dioxide 27 Anion Gap 13 BUN 20 H D Creatinine 0.93 Estim Creat Clear Calc 91.7 Estimated GFR > 60 Random Glucose 144 H Calcium 9.9 Total Bilirubin 0.3 AST 8 D ALT 20 Alkaline Phosphatase 61 Total Protein 7.1 Albumin 4.4 TSH Oxcarbazepine <1.0 L [place] 01/28/22 01/28/22 07:59 07:59 WBC RBC Hgb Hct MCV MCH MCHC RDW Plt Count MPV Immature Gran % (Auto) Neut % (Auto) Lymph % (Auto) [place] % (Auto) Eos % (Auto) Baso % (Auto) Lymph # (Auto) [place] # (Auto) Eos # (Auto) Baso # (Auto) Abs Immat Gran (auto) Absolute Neuts (auto) Absolute Nucleated RBC Nucleated RBC % (auto) Sodium 137 Potassium 4.6 Chloride 101 Carbon Dioxide 24 Anion Gap 17 BUN 18 H Creatinine 0.66 Estim Creat Clear Calc 129.2 Estimated GFR > 60 Random Glucose 90 Calcium 9.7 Total Bilirubin AST ALT Alkaline Phosphatase Total Protein Albumin TSH 2.32 Oxcarbazepine [place] 0.63 01/27/22 14:13 Stool Stool Culture - Preliminary Culture in progress. Imaging Diagnostic Imaging Impressions Chest X-Ray 01/23/22 12:50 IMPRESSION: No evidence for acute disease in the chest. DS: Summary Hospital Course Hospital Course: Conditional voluntary admission to adult psychiatry to address symptoms of bipol ar disorder, PTSD, COPD. Pt reported stopping medications prior to admission with resulting suicidality. Care plan, medication regime and out patient plan of care prior to admission were reviewed. Education was provided regarding management of symptoms, medications and side effects. Nursing and social human services assistants worked with Bhavana on education, care planning, medications and discharge planning. Previous regime was re-established and titrated without adverse events. COPD symptoms were monitored and addressed. Pt reported she has made a positive alliance with [facility] and plans to return to their care upon discharge. Time spent discussing smoking cessation with patient: 3 to 10 minutes Status at Discharge Functional status at discharge: independent ambulation Overall status at discharge: patient is back to baseline Time Spent with Patient Time attestation: Total time spent providing and/or coordinating discharge services:35 Time spent: Greater than 30 minutes Discharge Plan Discharge Patient Disposition: Senior Care Discharge Diagnosis: PTSD Bipolar Disorder COPD-Asthma FABIOLA Referrals: Psychiatric Med Management: Dr. Malvin Mars [Other] - 02/23/22 9:00 am (This is an in-office appointment) Cori Hooker MD [Physician] - 02/01/22 11:30 am ( OFFICE) Discharge Medications: New oxcarbazepine 150 mg Tablet 150 mg PO BID Qty: 60 0RF olanzapine 10 mg Tablet 10 mg PO BEDTIME Qty: 30 0RF clonidine HCl 0.2 mg Tablet 0.2 mg PO BEDTIME Qty: 30 0RF Protocol: Hold for SBP< HOLD for SBP < : 90 trazodone 100 mg Tablet 200 mg PO BEDTIME Qty: 60 0RF lithium carbonate 300 mg Capsule 600 mg PO BID Qty: 120 0RF ropinirole 0.5 mg Tablet 0.5 mg PO BEDTIME Qty: 30 0RF omeprazole 20 mg Capsule,Delayed Release(Dr/Ec) 20 mg PO DAILY@0630 Qty: 30 0RF sertraline 50 mg Tablet 50 mg PO DAILY Qty: 30 0RF cholecalciferol (vitamin D3) 25 mcg (1,000 unit) Tablet 25 mcg PO DAILY Qty: 30 0RF ferrous sulfate 324 mg (65 mg iron) Tablet,Delayed Release (Dr/Ec) 324 mg PO DAILY Qty: 30 0RF Continued valacyclovir 1 gram Tablet 1,000 mg PO BID 30 Days Qty: 60 0RF albuterol sulfate 90 mcg/actuation HFA aerosol inhaler 2 puff inhalation Q4-6H PRN (Reason: shortness of breath or wheezing) 30 Days Qty: 8.5 0RF Discontinued acetaminophen 325 mg Tablet 975 mg PO TID 7 Days Qty: 63 3RF hydroxyzine HCl 25 mg Tablet 25 mg PO BID PRN (Reason: Anxiety) 30 Days Qty: 60 0RF trazodone 100 mg tablet 150 mg PO BEDTIME 0RF olanzapine 10 mg tablet 5 mg PO BEDTIME 0RF gabapentin 100 mg capsule 200 mg PO BID 0RF lithium carbonate 300 mg Capsule 300 mg PO BID 0RF No Action gabapentin 100 mg capsule 300 mg PO TID 0RF Discharge Orders: Discharge Order (Routine); Ordered 01/28/22 Ordered By: Reina Lyle Diet: advance to usual diet Activity on Discharge: As tolerated Stand Alone Forms: Patient Portal Discharge page, Community Support Care Plan Goals: Mood stabilization Health Concerns: PTSD Bipolar Disorder COPD FABIOLA Plan of Treatment: Attend all scheduled medical and psychiatric appointments Take medications as directed Crisis [phone] Assessment: non suicidal non psychotic agrees with and asks for discharge Discharge Date/Time: 01/28/22 11:50
== END 2022-01-28 11:50 | disposition home or self-care (01) | DRG 753 ==
LOC: HO.ED 08:21 → HO.PM5 14:35
PROVIDERS: Registered Nurse; Student in an Organized Health Care Education/Training Program; Admitting Provider Psychiatry & Neurology Psychiatry; Emergency Provider Emergency Medicine Emergency Medical Services; Visit Provider Clinical Nurse Specialist Psychiatric/Mental Health, Adult
DX: F31.9 Bipolar disorder, unspecified (principal); R45.851 Suicidal ideations; F43.10 Post-traumatic stress disorder, unspecified; J44.9 Chronic obstructive pulmonary disease, unspecified; G47.33 Obstructive sleep apnea (adult) (pediatric); N39.0 Urinary tract infection, site not specified; Z20.822 Contact with and (suspected) exposure to COVID-19; Z88.0 Allergy status to penicillin; Z88.2 Allergy status to sulfonamides; Z88.6 Allergy status to analgesic agent; Z91.040 Latex allergy status; Z79.899 Other long term (current) drug therapy
CPT/HCPCS: 36415; 71045; 80048; 80053; 80061; 80178; 80307; 80339; 81001; 82077; 82607; 82746; 83036; 83735; 84439; 84443; 85025; 87045; 87046; 87635; 93005; 94660; 99285

== ENCOUNTER 2022-01-29 00:58 | Emergency (ER) | payer MEDICAID, SELFPAY ==
[2022-01-29 01:09] VITALS: BP 133/74; PULSE 112; RESP 20; TEMP 37.4; O2SAT 92; BMI 41.4
[2022-01-29 01:30] LABS: Appearance Urine TURBID; Color Urine YELLOW; Glucose Urine UA NEG (NEG); Leukocyte Esterase Urine 3+ (NEG); Nitrite Urine NEG (NEG); PH 6.5 (5.0-8.0); Specific Gravity - Urine 1.025 (1.005-1.025); Urine Blood TRACE (NEG); Urine Ketones NEG (NEG); Urine Protein 2+ MG/DL (NEG-TRACE)
[2022-01-29 01:38] LABS: Bacteria Urine 1+ /LPF; Mucus Urine 2+ /LPF; RBC Urine 0-2 /HPF (0); Squamous Epithelial Cell Urine 2+ /LPF
[2022-01-29 01:45] LABS: Amphetamine Screen Urine Not Detected (Not Detect); Barbiturates, Urine Not Detected (Not Detect); Benzodiazepines Screen Urine Not Detected (Not Detect); Cannabinoid Screen Urine Not Detected (Not Detect); Cocaine Screen Urine POSITIVE (Not Detect); Fentanyl, urine Not Detected (Not Detect); Opiate Screen Urine Not Detected (Not Detect); Phencyclidine Screen Urine Not Detected (Not Detect)
[2022-01-29 01:53] LABS: COVID-19 Test Negative (Negative)
[2022-01-29] MEDS: Acetaminophen 325 MG TABLET 975 MG PO (02:19)
[2022-01-29] MEDS: Albuterol Sulfate 90 MCG 8 GM INHALER 2 PUFF INHALE (03:45)
--- NOTE | 2022-01-29 04:33 | ED.PSYCH ---
HPI - Psych General Chief Complaint: Psychiatric Symptoms Stated Complaint: SI Time Seen by Provider: 01/29/22 03:10 Source: patient Mode of arrival: EMS History of Present Illness HPI Narrative: 52-year-old female is brought in by EMS complaint of his ideation and a plan to jump off the bridge. Patient states that she relapsed on cocaine earlier In the evening. Related Data Previous Rx's Medication Instructions Recorded albuterol sulfate 90 mcg/actuation 2 puff INHALATION Q4-6H PRN 30 10/29/21 aerosol inhaler Days #8.5 g valacyclovir 1 gram tablet 1,000 mg PO BID 30 Days #60 tab 10/29/21 cholecalciferol (vitamin D3) 25 25 mcg PO DAILY #30 tab 01/28/22 mcg (1,000 unit) tablet clonidine HCl 0.2 mg tablet 0.2 mg PO BEDTIME #30 tab 01/28/22 ferrous sulfate 324 mg (65 mg 324 mg PO DAILY #30 tab 01/28/22 iron) tablet,delayed release gabapentin 100 mg capsule 100 mg PO TID PRN #90 cap 01/28/22 gabapentin 100 mg capsule 200 mg PO 0900,1300,2100 #180 cap 01/28/22 lithium carbonate 300 mg capsule 600 mg PO BID #120 cap 01/28/22 olanzapine 10 mg tablet 10 mg PO BEDTIME #30 tab 01/28/22 omeprazole 20 mg capsule,delayed 20 mg PO DAILY@0630 #30 cap 01/28/22 release oxcarbazepine 150 mg tablet 150 mg PO BID #60 tab 01/28/22 ropinirole 0.5 mg tablet 0.5 mg PO BEDTIME #30 tab 01/28/22 sertraline 50 mg tablet 50 mg PO DAILY #30 tab 01/28/22 trazodone 100 mg tablet 200 mg PO BEDTIME #60 tab 01/28/22 Allergies Allergy/AdvReac Type Severity Reaction Status Date / Time aspirin [Aspirin] Allergy Severe HIVES,THROAT Verified 10/13/21 04:51 SWELLS bee pollen [BEE STINGS] Allergy Severe ANAPHYLAXIS Verified 10/13/21 04:51 diphenhydramine Allergy Severe hives, Verified 10/13/21 04:51 [From BENADRYL ALLERGY] throat swells Penicillins [PCN] Allergy Severe HIVES Verified 10/13/21 04:51 THROAT SWELLS Sulfa (Sulfonamide Allergy Intermediate HIVES Verified 10/13/21 04:51 Antibiotics) [SULFA (SULFONAMIDE ANTIBIOTICS)] tramadol [TRAMADOL] Allergy Intermediate ITCHING Verified 10/13/21 04:51 latex [LATEX] Allergy Unknown UNKNOWN Verified 10/13/21 04:51 penicillin G Allergy Unknown Unknown Verified 10/13/21 04:51 levofloxacin [From Levaquin] Allergy Hives Verified 10/13/21 04:51 hydroxyzine AdvReac Severe restless Verified 01/27/22 19:57 legs bee stings Allergy Unknown Unknown Uncoded 10/13/21 04:51 DairyCare Allergy Unknown Unknown Uncoded 10/13/21 04:51 sulfa drugs Allergy Unknown Unknown Uncoded 10/13/21 04:51 Review of Systems Review of Systems: Pertinent positives and negatives as stated in HPI 10 point review of systems is otherwise negative. PMFSH Past Medical History Source: nursing notes reviewed Medical History Asthma exacerbation in COPD Bipolar disorder Bipolar I disorder Borderline personality disorder Borderline personality disorder COPD (chronic obstructive pulmonary disease) Depression Drug abuse Herpes Intermittent explosive disorder Mass of parotid gland FABIOLA (obstructive sleep apnea) Post traumatic stress disorder (PTSD) PTSD (post-traumatic stress disorder) PTSD (post-traumatic stress disorder) Tobacco use Surgical History History of ankle surgery History of appendectomy History of back surgery Hx of cholecystectomy Family History Family History Mother COPD (chronic obstructive pulmonary disease) Social History Social History Household Members: None Household Members Other:: Pt states she hangs out with a male friend and a female friend Housing: Homeless Housing Other:: will be getting apartment 07/01 Do you presently have visiting nurse or other home services: No Unable to assess alcohol history related to: Unknown Alcohol intake: never Patient Tobacco Use Status: Current everyday Tobacco user Tobacco use type: Cigarette Cigarette Packs Per Day: 0.5 Cigarettes Per Day: 10.0 Years Smoked: 37 e-Cigarette/Vaping Use: Never Used Second Hand Smoke Exposure: Yes Substance Use Type: Crack/Cocaine Advance Directives: Yes Advance Directives on File: Yes Advance Directives Date on File: 12/24/20 Patient : No service: No Current occupational status: unemployed and disabled Sexual orientation: Did not discuss Physical Exam Vital Signs: Vital Signs: Last Vital Signs Temp 99.3 F 01/29/22 01:09 Pulse 112 H 01/29/22 01:09 Resp 20 01/29/22 01:09 BP 133/74 01/29/22 01:09 Pulse Ox 92 01/29/22 01:09 BMI result Body Mass Index 41.4 VITAL SIGNS: Reviewed. GENERAL: Well developed, well nourished, in no acute distress. HEAD: Normocephalic/atraumatic EYES: PERRLA, EOMI EARS: Ext canals without abnormality OROPHARYNX: no oral lesions noted, posterior pharynx clear LUNGS: Normal breath sounds. No adventitious sounds or accessory muscle use. SpO2<92> CARDIOVASCULAR: Regular rate and rhythm without noted murmurs ABDOMEN: Soft, non-tender, non-distended with bowel sounds. NEUROLOGIC: Alert and oriented x 4. Strength and sensation to light touch were grossly intact x 4, cranial nerves 2-12 are grossly Intact. Course Course Course Narrative: 52-year-old female with history and clinical presentation consistent with her cycle of relapsing on cocaine and then feeling suicidal and reporting a plan. Although patient does feel somewhat better at this time she will need to be further evaluated by the crisis team. She is medically cleared for this evaluation. Reevaluation(s) Reevaluation #1: Patient placed in physician observation because the patient needed more time for crisis evaluation. At the time observation was started the patient's vital signs were stable, patient is alert and oriented, neuro: Nonfocal, CV RRR, lungs clear Time: 03:59 MDM - Psych Lab Data Labs: Lab Results 01/29/22 01/29/22 01/29/22 Range/Units 01:23 01:23 01:23 Urine Color YELLOW Urine Appearance TURBID Urine pH 6.5 (5.0-8.0) Ur Specific [place] 1.025 (1.005-1.025) Urine Protein 2+ H (NEG-TRACE) MG/DL Urine Glucose (UA) NEG (NEG) MG/DL Urine Ketones NEG (NEG) MG/DL Urine Blood TRACE (NEG) Urine Nitrite NEG (NEG) Ur Leukocyte Esterase 3+ H (NEG) Urine RBC 0-2 (0) /HPF Urine WBC 15-29 H (0-4) /HPF Ur Squamous Epith Cells 2+ /LPF Urine Bacteria 1+ /LPF Urine Mucus 2+ /LPF Urine Opiates Screen Not Detected (Not Detect) Urine Fentanyl Screen Not Detected (Not Detect) Ur Barbiturates Screen Not Detected (Not Detect) Ur Phencyclidine Scrn Not Detected (Not Detect) Ur Amphetamines Screen Not Detected (Not Detect) U Benzodiazepines Scrn Not Detected (Not Detect) Urine Cocaine Screen POSITIVE H (Not Detect) U Marijuana (THC) Screen Not Detected (Not Detect) COVID-19 (ENDY) Negative (Negative) COVID-19 Clin Com See Note Discharge Plan Discharge Clinical Impression: Cocaine use disorder, Bipolar disorder Patient Disposition: Still a Patient Prescriptions: No Action valacyclovir 1 gram Tablet 1,000 mg PO BID 30 Days Qty: 60 0RF albuterol sulfate 90 mcg/actuation HFA aerosol inhaler 2 puff inhalation Q4-6H PRN (Reason: shortness of breath or wheezing) 30 Days Qty: 8.5 0RF oxcarbazepine 150 mg Tablet 150 mg PO BID Qty: 60 0RF olanzapine 10 mg Tablet 10 mg PO BEDTIME Qty: 30 0RF clonidine HCl 0.2 mg Tablet 0.2 mg PO BEDTIME Qty: 30 0RF Protocol: Hold for SBP< HOLD for SBP < : 90 trazodone 100 mg Tablet 200 mg PO BEDTIME Qty: 60 0RF lithium carbonate 300 mg Capsule 600 mg PO BID Qty: 120 0RF ropinirole 0.5 mg Tablet 0.5 mg PO BEDTIME Qty: 30 0RF omeprazole 20 mg Capsule,Delayed Release(Dr/Ec) 20 mg PO DAILY@0630 Qty: 30 0RF gabapentin 100 mg Capsule 200 mg PO 0900,1300,2100 Qty: 180 0RF gabapentin 100 mg Capsule 100 mg PO TID PRN (Reason: neuropathic pain) Qty: 90 0RF sertraline 50 mg Tablet 50 mg PO DAILY Qty: 30 0RF cholecalciferol (vitamin D3) 25 mcg (1,000 unit) Tablet 25 mcg PO DAILY Qty: 30 0RF ferrous sulfate 324 mg (65 mg iron) Tablet,Delayed Release (Dr/Ec) 324 mg PO DAILY Qty: 30 0RF
[2022-01-29] MEDS: LORazepam 1 MG TABLET PO (04:39)
--- NOTE | 2022-01-29 04:41 | PC.NURSE ---
Patient reported feeling hot and itchy, no visible rash or redness, showered without effect, provider notified/ordered Ativan 1 mg PO administered pending effect, [facility] referral completed/confirmed/pending evaluation in the morning, med rec not completed/off medication, Ventolin inhaler administered with good effect, will continue to monitor.
[2022-01-29] MEDS: Lidocaine HCl Viscous 2 % 15 ML SOLUTION 10 ML MUCOUS MEM (05:33)
[2022-01-29] MEDS: Magnesium Hydrox/Alum Hydrox 30 ML ORAL.SUSP PO (05:33)
--- NOTE | 2022-01-29 07:10 | PC.NURSE ---
patient appears to remain asleep at present respirations are even and unlabored patient appears in no distress
[2022-01-29 07:53] VITALS: BP 98/57; PULSE 87; RESP 12; TEMP 37.2; O2SAT 92
--- NOTE | 2022-01-29 10:26 | MHC.CARE ---
Pt is a 52 y/o , Portuguese speaking, female, who is previously known to the CARE Team through multiple prior assessments, ED visits, and inpatient stays. This morning, pt presented to ED via EMS for suicidal ideation with a plan to jump off a bridge.? Yesterday, pt was discharged from at approximately 1100hrs.? All documentation reviewed related to her discharge identified pt as ready for discharge.? The documentation identified that the pt herself was ready for discharge.? Pt presented to the ED at 0109 today.? Pt has been medically cleared and is being screened for risk by the CARE Team to determine appropriate treatment recommendations. Pt has an extensive hx of inpt hospitalizations, and is known to engage in unsafe behavior. Past documented hx of Bipolar d/o, PTSD, substance use and suicidal ideation. Pt is alert and oriented x4 and is assessed in her room in the behavioral health pod of the ED. She is dressed in hospital attire, winces when she moves or adjusts her positioning in bed, appears older than her stated age, and appears disheveled. She is engaged in the assessment and is help seeking, stating that she believes she needs a ?treatment program? for substance use or inpatient level of care. Her eye contact and speech are unremarkable. She describes her mood as ?depressed?, ?Suicidal? and ?Wanting to ?. She is at times tearful during the screening.? She reports leaving this facility yesterday and going to a friend?s house where she smoked crack and ?Snorted coke for the first time.?? She stated that she is disappointed in herself as she was ?Doing so good? and ?Fucked it all up?.? She stated that she believed the friend was no longer using, which is why she spent time with them.? The offer of drugs and use of drugs triggered her relapse. [facility] and continue to pursue the room she was pursuing before her admission to .? She reports staying on the [place] last night because she never made it to [facility].? She reports that she is still currently homeless. She describes a poor appetite, her breakfast tray appeared untouched. Pt was asleep prior to CARE Team?s arrival to her room.? Pt needed to be awakened to conduct the screening.? Her tray being untouched appears to be because she had slept through breakfast.? Pt does not appear delusional or experiencing symptoms of psychosis. Pt denies AVH at this time. She denies HI and and is endorsing SI with a plan to jump off a bridge (No bridge identified at this time), she stated she has concerns that if she did not come in, she would have acted on her ideation. Insight, judgement, memory, concentration and impulse control appear fair. Pt describes her SI in the context of her recent relapse on cocaine and her homelessness.? CARE Team recommends exploring substance use treatment options with this pt. CARE Team speaks with pt?s psychiatry provider and social sciences department chair from her stay on [facility].? Neither believes that pt could benefit from an inpatient stay at this time as she had just been discharged from the unit and that her SI appears to be in the context of her substance use.? Both suggested the possibility of exploring a section 35. CARE Team contacts Recovery Team to explore substance use treatment options with pt.
--- NOTE | 2022-01-29 10:33 | MHC.RECOVSUP ---
Addendum entered by Malvin Matthews [facility] 01/29/22 13:30: Patient declined admission to [facility]. Discussed alternative discharge plans with patient. Patient agreeable to discharge to the [facility]. Transportation via Ly[employer]. Original Note: Recovery Support note: Patient is a 52 year old Amharic speaking female who presented to [facility] ED due to vague SI after relapsing on cocaine. Patient reports frustration regarding the relapse and her lack of housing. Discussed ATS with patient. Patient acknowledges that she may not be able to get into a facility due to her type and pattern of substance use however she is interested in being referred. Patient reports she can maintain safety in this level of care. Discussed case with CARE Team. Plan to refer patient to ATS facilities.
[2022-01-29] MEDS: Gabapentin 100 MG CAPSULE 200 MG PO (13:02)
== END 2022-01-29 13:33 | disposition home or self-care (01) ==
PROVIDERS: Emergency Provider Student in an Organized Health Care Education/Training Program
DX: F14.10 Cocaine abuse, uncomplicated (principal); F31.9 Bipolar disorder, unspecified; R45.851 Suicidal ideations; Z20.822 Contact with and (suspected) exposure to COVID-19; F60.3 Borderline personality disorder; F43.10 Post-traumatic stress disorder, unspecified; F17.200 Nicotine dependence, unspecified, uncomplicated; Z79.899 Other long term (current) drug therapy
CPT/HCPCS: 80307; 81001; 87635; 99284

== ENCOUNTER 2022-02-16 10:48 | Emergency (ER) | payer MEDICAID, SELFPAY ==
--- NOTE | 2022-02-16 10:53 | ED.PSYCH ---
HPI - Psych General Chief Complaint: Psychiatric Symptoms Stated Complaint: Crisis Time Seen by Provider: 02/16/22 10:53 Source: patient Mode of arrival: EMS Limitations: no limitations History of Present Illness MD complaint: suicidal ideation Onset (ago): day(s) Duration: constant History of same: Yes Relieving factors: none Exacerbating factors: other (homeless doesn't have resources) Context: significant life stressor Associated psychiatric symptoms: depression and suicidal ideation Associated symptoms: denies other symptoms Treatments prior to arrival: none Related Data Home Medications Medication Instructions Recorded Confirmed gabapentin 100 mg capsule 300 mg PO TID 02/16/22 02/16/22 Previous Rx's Medication Instructions Recorded albuterol sulfate 90 mcg/actuation 2 puff INHALATION Q4-6H PRN 30 10/29/21 aerosol inhaler Days #8.5 g valacyclovir 1 gram tablet 1,000 mg PO BID 30 Days #60 tab 10/29/21 cholecalciferol (vitamin D3) 25 25 mcg PO DAILY #30 tab 01/28/22 mcg (1,000 unit) tablet clonidine HCl 0.2 mg tablet 0.2 mg PO BEDTIME #30 tab 01/28/22 ferrous sulfate 324 mg (65 mg 324 mg PO DAILY #30 tab 01/28/22 iron) tablet,delayed release lithium carbonate 300 mg capsule 600 mg PO BID #120 cap 01/28/22 olanzapine 10 mg tablet 10 mg PO BEDTIME #30 tab 01/28/22 omeprazole 20 mg capsule,delayed 20 mg PO DAILY@0630 #30 cap 01/28/22 release oxcarbazepine 150 mg tablet 150 mg PO BID #60 tab 01/28/22 ropinirole 0.5 mg tablet 0.5 mg PO BEDTIME #30 tab 01/28/22 sertraline 50 mg tablet 50 mg PO DAILY #30 tab 01/28/22 trazodone 100 mg tablet 200 mg PO BEDTIME #60 tab 01/28/22 Allergies Allergy/AdvReac Type Severity Reaction Status Date / Time aspirin [Aspirin] Allergy Severe HIVES,THROAT Verified 10/13/21 04:51 SWELLS bee pollen [BEE STINGS] Allergy Severe ANAPHYLAXIS Verified 10/13/21 04:51 diphenhydramine Allergy Severe hives, Verified 10/13/21 04:51 [From BENADRYL ALLERGY] throat swells Penicillins [PCN] Allergy Severe HIVES Verified 10/13/21 04:51 THROAT SWELLS Sulfa (Sulfonamide Allergy Intermediate HIVES Verified 10/13/21 04:51 Antibiotics) [SULFA (SULFONAMIDE ANTIBIOTICS)] tramadol [TRAMADOL] Allergy Intermediate ITCHING Verified 10/13/21 04:51 latex [LATEX] Allergy Unknown UNKNOWN Verified 10/13/21 04:51 penicillin G Allergy Unknown Unknown Verified 10/13/21 04:51 levofloxacin [From Levaquin] Allergy Hives Verified 10/13/21 04:51 hydroxyzine AdvReac Severe restless Verified 01/27/22 19:57 legs bee stings Allergy Unknown Unknown Uncoded 10/13/21 04:51 DairyCare Allergy Unknown Unknown Uncoded 10/13/21 04:51 sulfa drugs Allergy Unknown Unknown Uncoded 10/13/21 04:51 Review of Systems Review of Systems: Constitutional : No Fever, No Chills ENT/Mouth : No Ear Pain, No Nasal Congestion, No sore throat Eyes: No Eye Pain, No Swelling, No Redness Cardiovascular : No Chest Pain, No SOB Respiratory : No Cough, No Sputum, No Dyspnea Gastrointestinal : No Nausea, No Vomiting, No Diarrhea, No Hematochezia, No Melena Genitourinary : No Dysuria, No Urinary Frequency, No Hematuria Musculoskeletal : No Myalgias Skin : No Skin Lesions, No rash Neuro : No Weakness, No Numbness, No Paresthesias, No Dizziness, No Headache Psych : positive Anxiety, positive Depression, positive SI/HI Heme/Lymph: No Lymphadenopathy Endocrine : No Polyuria, No Polydipsia All other systems reviewed and are negative PMFSH Past Medical History Medical History Asthma exacerbation in COPD Bipolar disorder Bipolar I disorder Borderline personality disorder Borderline personality disorder COPD (chronic obstructive pulmonary disease) Depression Drug abuse Herpes Intermittent explosive disorder Mass of parotid gland FABIOLA (obstructive sleep apnea) Post traumatic stress disorder (PTSD) PTSD (post-traumatic stress disorder) PTSD (post-traumatic stress disorder) Tobacco use Surgical History History of ankle surgery History of appendectomy History of back surgery Hx of cholecystectomy Family History Family History Mother COPD (chronic obstructive pulmonary disease) Social History Social History Household Members: None Household Members Other:: Pt states she hangs out with a male friend and a female friend Housing: Homeless Housing Other:: will be getting apartment 07/01 Do you presently have visiting nurse or other home services: No Unable to assess alcohol history related to: Unknown Alcohol intake: never Patient Tobacco Use Status: Current everyday Tobacco user Tobacco use type: Cigarette Cigarette Packs Per Day: 0.5 Cigarettes Per Day: 10.0 Years Smoked: 37 e-Cigarette/Vaping Use: Never Used Second Hand Smoke Exposure: Yes Use of substances other than those prescribed or required for medical reasons: No Substance Use Type: Crack/Cocaine Advance Directives: Yes Advance Directives on File: Yes Advance Directives Date on File: 12/24/20 service: No Current occupational status: unemployed and disabled Sexual orientation: Did not discuss Physical Exam Vital Signs: Vital Signs: Last Vital Signs Temp 99.1 F 02/16/22 10:54 Pulse 91 02/16/22 10:54 Resp 18 02/16/22 10:54 BP 116/73 02/16/22 10:54 Pulse Ox 93 02/16/22 10:54 BMI result Body Mass Index 39.5 Appearance: Alert. Oriented X3. No acute distress. Eyes: Pupils equal, round and reactive to light. ENT: Pharynx normal. Neck: Normal inspection. Neck supple. CVS: Normal heart rate and rhythm. Pulses normal. Respiratory: No respiratory distress. Breath sounds coarse but not bad for her Abdomen: Soft and nontender. Skin: Skin warm and dry. Normal skin color. Normal skin turgor. Extremities: No lower extremity edema. No calf ttp Neuro: Oriented X 3. No motor deficit. No sensory deficit. CN2-12 intact Course Course Course Narrative: Physician observation started at 1229pm. Patient placed in physician observation because the patient needed more time for BHN to assess the need for psych admission. At the time observation was started the patient's vitals were stable, patient is alert and oriented but slightly anxious, Neuro: nonfocal, CV RRR, Lungs clear MDM - Psych MDM Narrative Medical decision making narrative: 52 yo female with hx of bipolar, PTSD, asthma/COPD, pneumonia here with c/o SI due to recent illness that she recovered from but then became homeless again and lost a lot of her supplies and resources. At this time will need labs, med rec, N consult. Dispo per their recommendations Lab Data Result diagrams: 02/16/22 12:20 02/16/22 12:20 Discharge Plan Discharge Clinical Impression: Suicidal ideation Patient Disposition: Still a Patient Prescriptions: No Action valacyclovir 1 gram Tablet 1,000 mg PO BID 30 Days Qty: 60 0RF albuterol sulfate 90 mcg/actuation HFA aerosol inhaler 2 puff inhalation Q4-6H PRN (Reason: shortness of breath or wheezing) 30 Days Qty: 8.5 0RF oxcarbazepine 150 mg Tablet 150 mg PO BID Qty: 60 0RF olanzapine 10 mg Tablet 10 mg PO BEDTIME Qty: 30 0RF clonidine HCl 0.2 mg Tablet 0.2 mg PO BEDTIME Qty: 30 0RF Protocol: Hold for SBP< HOLD for SBP < : 90 trazodone 100 mg Tablet 200 mg PO BEDTIME Qty: 60 0RF lithium carbonate 300 mg Capsule 600 mg PO BID Qty: 120 0RF ropinirole 0.5 mg Tablet 0.5 mg PO BEDTIME Qty: 30 0RF omeprazole 20 mg Capsule,Delayed Release(Dr/Ec) 20 mg PO DAILY@0630 Qty: 30 0RF sertraline 50 mg Tablet 50 mg PO DAILY Qty: 30 0RF cholecalciferol (vitamin D3) 25 mcg (1,000 unit) Tablet 25 mcg PO DAILY Qty: 30 0RF ferrous sulfate 324 mg (65 mg iron) Tablet,Delayed Release (Dr/Ec) 324 mg PO DAILY Qty: 30 0RF gabapentin 100 mg capsule 300 mg PO TID 0RF
[2022-02-16 10:54] VITALS: BP 116/73; BP 142/84; PULSE 100; PULSE 91; RESP 18; TEMP 37.3; O2SAT 93; O2SAT 95; BMI 39.5
--- NOTE | 2022-02-16 12:02 | PHA.MEDREC ---
Pharmacy Consult ? Medication Reconciliation Pharmacy has completed the medication reconciliation. Patient gets filled at [facility] in [place] and [facility]
[2022-02-16 12:26] LABS: MANUAL DIFF FLAG NO
[2022-02-16 12:30] LABS: Basophils Absolute Auto 0.1 X10*3/uL (0.0-0.2); Basophils Percent Auto 0.6 % (0-2); Eosinophils Percent Auto 0.1 % (0-4); Hemoglobin 12.7 g/dl (12.0-16.0); Imm Gran Abs Auto 0.07 X10*3/uL (0.00-0.03); Imm Gran Pct Auto 0.7 % (0.0-0.4); Lymphocytes Absolute Auto 1.3 X10*3/uL (1.2-4.9); Lymphocytes Percent Auto 12.1 % (20-40); Mean Corpuscular HGB Conc 31.8 g/dl (31.0-35.0); Mean Corpuscular Hemoglobin 30.1 pg (27.0-33.0); Mean Corpuscular Volume 94.8 fL (80.0-98.0); Mean Platelet Volume 9.8 fL (9.4-12.3); Monocytes Absolute Auto 0.2 X10*3/uL (0.1-1.2); Monocytes Percent Auto 1.9 % (2-11); Neutrophils Absolute Auto 9.1 x10*3/uL (2.0-8.3); Neutrophils Percent Auto 84.6 % (45-73); Platelet Count 325 X10*3/uL (160-400); Red Blood Count 4.22 X10*6/uL (4.20-5.50); Red Cell Distribution Width 13.6 % (11.0-16.0); White Blood Count 10.7 X10*3/uL (4.8-10.8)
[2022-02-16 12:41] LABS: COVID-19 Test Negative (Negative)
[2022-02-16 12:42] LABS: Lithium 0.46 mmol/L (0.60-1.20)
[2022-02-16 12:47] LABS: Amphetamine Screen Urine Not Detected (Not Detect); Barbiturates, Urine Not Detected (Not Detect); Benzodiazepines Screen Urine Not Detected (Not Detect); Cannabinoid Screen Urine Not Detected (Not Detect); Cocaine Screen Urine Not Detected (Not Detect); Fentanyl, urine Not Detected (Not Detect); Opiate Screen Urine Not Detected (Not Detect); Phencyclidine Screen Urine Not Detected (Not Detect)
[2022-02-16 12:49] LABS: Alanine Aminotransferase 18 U/L (0-31); Albumin Level 4.6 g/dL (3.5-5.0); Alkaline Phosphatase 76 U/L (39-117); Anion Gap 14 (12-20); Aspartate Amino Transferase 14 U/L (5-31); Bilirubin Direct < 0.2 mg/dL (0.0-0.5); Bilirubin Total 0.3 mg/dL (0.0-1.0); Blood Urea Nitrogen 14 mg/dL (9-16); Calcium 10.1 mg/dL (8.4-10.2); Carbon Dioxide 28 mmol/L (22-29); Chloride 100 mmol/L (96-108); Creatinine Clr Calc Pharmacy 116.8; Estimated Glomerular Filt Rate > 60; Glucose Random 140 mg/dL (60-115); Potassium 4.1 mmol/L (3.3-5.1); Sodium 138 mmol/L (135-145); Total Protein 7.3 g/dL (6.5-8.0)
[2022-02-16 13:18] VITALS: BP 115/65; PULSE 90; RESP 19; TEMP 37.1; O2SAT 91
[2022-02-16] MEDS: Gabapentin 300 MG CAPSULE PO ×2 (15:38→20:01)
[2022-02-16 20:00] VITALS: BP 144/84; PULSE 74; RESP 18; O2SAT 93
[2022-02-16] MEDS: rOPINIRole HCL 0.5 MG TABLET PO (20:00)
[2022-02-16] MEDS: cloNIDine HCL 0.2 MG TABLET PO (20:01)
[2022-02-16] MEDS: valACYclovir HCL 1,000 MG TABLET 1000 MG PO (20:01)
[2022-02-16] MEDS: OLANZapine 10 MG TABLET PO (20:01)
[2022-02-16] MEDS: Lithium Carbonate 300 MG CAPSULE 600 MG PO (20:01)
[2022-02-16] MEDS: OXcarbazepine 150 MG TABLET PO (20:01)
[2022-02-16] MEDS: traZODone HCL 100 MG TABLET 200 MG PO (20:01)
--- NOTE | 2022-02-16 23:12 | PC.NURSE ---
Patient asleep, awakens easily. No distress noted, will monitor closely.
[2022-02-17 06:00] VITALS: BP 123/78; PULSE 89; RESP 20; TEMP 36.7; O2SAT 92
[2022-02-17] MEDS: Omeprazole 20 MG CAPSULE.DR PO (06:05)
--- NOTE | 2022-02-17 07:17 | PC.NURSE ---
patient appears to remain at rest at present respirations are even and unlabored patient appears in no distress
[2022-02-17] MEDS: Cholecalciferol (Vitamin D3) 25 MCG TABLET PO (08:08)
[2022-02-17] MEDS: valACYclovir HCL 1,000 MG TABLET 1000 MG PO (08:08)
[2022-02-17] MEDS: Ferrous Sulfate 324 MG TABLET.DR PO (08:08)
[2022-02-17] MEDS: Gabapentin 300 MG CAPSULE PO ×2 (08:08→14:26)
[2022-02-17] MEDS: Lithium Carbonate 300 MG CAPSULE 600 MG PO (08:08)
[2022-02-17] MEDS: Sertraline HCL 50 MG TABLET PO (08:08)
[2022-02-17] MEDS: OXcarbazepine 150 MG TABLET PO (08:09)
== END 2022-02-17 15:22 | disposition home or self-care (01) ==
PROVIDERS: Emergency Provider Emergency Medicine; PCP Family Medicine
DX: F33.1 Major depressive disorder, recurrent, moderate (principal); R45.851 Suicidal ideations; F17.210 Nicotine dependence, cigarettes, uncomplicated; Z71.6 Tobacco abuse counseling; F14.10 Cocaine abuse, uncomplicated; Z20.822 Contact with and (suspected) exposure to COVID-19; Z79.899 Other long term (current) drug therapy
CPT/HCPCS: 80048; 80076; 80178; 80307; 85025; 87635; 99285

== ENCOUNTER 2022-02-23 14:15 | Emergency (ER) | payer MEDICAID, SELFPAY ==
--- NOTE | ~2022-02-23 | XR_ITS ---
EXAMINATION: XR CHEST CLINICAL INFORMATION: Dyspnea COMPARISON: 01/23/2022 TECHNIQUE: Frontal view of the chest was obtained in the lordotic position. FINDINGS: No significant abnormality is noted involving the heart, lungs, mediastinum, bony thorax or soft tissues. Some minimal left basilar atelectasis is present. XR/XR chest 1V IMPRESSION: No acute intrathoracic disease. A cause for the patient's dyspnea has not been found
--- NOTE | 2022-02-23 14:22 | ED.ASTHMA ---
HPI - Asthma General Chief Complaint: Dyspnea Stated Complaint: RESP DISTRESS @ [facility],6LPM DUONEB NOW PER EMS Time Seen by Provider: 02/23/22 14:21 Source: patient Mode of arrival: EMS Limitations: no limitations History of Present Illness HPI Narrative: 52-year-old female presents emergency department with 30 minutes of respiratory distress the patient has known history of asthma she states she was not doing anything particular sitting when tried having shortness of breath per EMS patient had poor coloring was not speaking on arrival at 2 with treatments and is doing much better. MD complaint: asthma attack , shortness of breath and wheezing Related Data Home Medications Medication Instructions Recorded Confirmed gabapentin 100 mg capsule 300 mg PO TID 02/16/22 02/16/22 Previous Rx's Medication Instructions Recorded albuterol sulfate 90 mcg/actuation 2 puff INHALATION Q4-6H PRN 30 10/29/21 aerosol inhaler Days #8.5 g valacyclovir 1 gram tablet 1,000 mg PO BID 30 Days #60 tab 10/29/21 cholecalciferol (vitamin D3) 25 25 mcg PO DAILY #30 tab 01/28/22 mcg (1,000 unit) tablet clonidine HCl 0.2 mg tablet 0.2 mg PO BEDTIME #30 tab 01/28/22 ferrous sulfate 324 mg (65 mg 324 mg PO DAILY #30 tab 01/28/22 iron) tablet,delayed release lithium carbonate 300 mg capsule 600 mg PO BID #120 cap 01/28/22 olanzapine 10 mg tablet 10 mg PO BEDTIME #30 tab 01/28/22 omeprazole 20 mg capsule,delayed 20 mg PO DAILY@0630 #30 cap 01/28/22 release oxcarbazepine 150 mg tablet 150 mg PO BID #60 tab 01/28/22 ropinirole 0.5 mg tablet 0.5 mg PO BEDTIME #30 tab 01/28/22 sertraline 50 mg tablet 50 mg PO DAILY #30 tab 01/28/22 trazodone 100 mg tablet 200 mg PO BEDTIME #60 tab 01/28/22 benzonatate 100 mg capsule 100 mg PO BID PRN #20 cap 02/23/22 prednisone 20 mg tablet 60 mg PO DAILY 5 Days #15 tab 02/23/22 Allergies Allergy/AdvReac Type Severity Reaction Status Date / Time aspirin [Aspirin] Allergy Severe HIVES,THROAT Verified 10/13/21 04:51 SWELLS bee pollen [BEE STINGS] Allergy Severe ANAPHYLAXIS Verified 10/13/21 04:51 diphenhydramine Allergy Severe hives, Verified 10/13/21 04:51 [From BENADRYL ALLERGY] throat swells Penicillins [PCN] Allergy Severe HIVES Verified 10/13/21 04:51 THROAT SWELLS Sulfa (Sulfonamide Allergy Intermediate HIVES Verified 10/13/21 04:51 Antibiotics) [SULFA (SULFONAMIDE ANTIBIOTICS)] tramadol [TRAMADOL] Allergy Intermediate ITCHING Verified 10/13/21 04:51 latex [LATEX] Allergy Unknown UNKNOWN Verified 10/13/21 04:51 penicillin G Allergy Unknown Unknown Verified 10/13/21 04:51 levofloxacin [From Levaquin] Allergy Hives Verified 10/13/21 04:51 hydroxyzine AdvReac Severe restless Verified 01/27/22 19:57 legs bee stings Allergy Unknown Unknown Uncoded 10/13/21 04:51 DairyCare Allergy Unknown Unknown Uncoded 10/13/21 04:51 sulfa drugs Allergy Unknown Unknown Uncoded 10/13/21 04:51 Review of Systems Review of Systems: Review of systems: General: Patient denies any fever chills recent illness or falls Musculoskeletal: Denies back pain or body aches or other injuries HEENT: denies headache, runny nose, ear pain Respiratory: shortness of breath, cough Cardiovascular: no chest pain or palpitations : denies dysuria, frequency Abdomen: no nausea vomiting denies abdominal pain Extremities: no swelling, no pain Skin: no diaphoresis Yes all other systems are reviewed and are negative PMFSH Past Medical History Medical History Asthma exacerbation in COPD Bipolar disorder Bipolar I disorder Borderline personality disorder Borderline personality disorder COPD (chronic obstructive pulmonary disease) Depression Drug abuse Herpes Intermittent explosive disorder Mass of parotid gland FABIOLA (obstructive sleep apnea) Post traumatic stress disorder (PTSD) PTSD (post-traumatic stress disorder) PTSD (post-traumatic stress disorder) Tobacco use Surgical History History of ankle surgery History of appendectomy History of back surgery Hx of cholecystectomy Family History Family History Mother COPD (chronic obstructive pulmonary disease) Social History Social History Household Members: None Household Members Other:: Pt states she hangs out with a male friend and a female friend Housing: Homeless Housing Other:: will be getting apartment 07/01 Do you presently have visiting nurse or other home services: No Unable to assess alcohol history related to: Unknown Alcohol intake: never Patient Tobacco Use Status: Current everyday Tobacco user Tobacco use type: Cigarette Cigarette Packs Per Day: 0.5 Cigarettes Per Day: 10.0 Years Smoked: 37 e-Cigarette/Vaping Use: Never Used Second Hand Smoke Exposure: Yes Substance Use Type: Crack/Cocaine Advance Directives: Yes Advance Directives on File: Yes Advance Directives Date on File: 12/24/20 service: No Current occupational status: unemployed and disabled Sexual orientation: Did not discuss Physical Exam Vital Signs: Vital Signs: Last Vital Signs Temp 98.1 F 02/23/22 14:31 Pulse 79 02/23/22 14:59 Resp 16 02/23/22 14:59 BP 137/70 02/23/22 14:31 Pulse Ox 92 02/23/22 14:31 BMI result Body Mass Index 47.9 General: Well-appearing well-nourished in no signs of distress HEENT: Normocephalic atraumatic Neck: No signs of JVD, no masses no tenderness or lymphadenopathy Cardiovascular: Regular rate and rhythm Respiratory: Clear to auscultation bilaterally Abdomen: Soft nontender no masses rectal exam performed guiac negative nurse quality confirmed. Extremities: Normal pedal pulses no signs of edema Skin: Dry warm no rashes Back: No tenderness full ROM MDM - Asthma MDM Narrative Medical decision making narrative: Patient looks much better now give patient a breathing treatment the patient for an x-ray and labs and reassess. 1531 patient is feeling much better CBC BMP and x-ray are normal patient happy with plan to go home follow-up with her doctor. Differential Diagnosis Differential diagnosis: Likely Acute exacerbation and Acute asthmatic bronchitis Medical Records Attestation: I reviewed the patient's medical records. Lab Data Attestation: I reviewed the patient's lab results. Result diagrams: 02/23/22 14:53 02/23/22 14:53 Labs: Lab Results 02/23/22 02/23/22 02/23/22 Range/Units 14:53 14:53 14:53 WBC 12.0 H (4.8-10.8) X10*3/uL RBC 4.01 L (4.20-5.50) X10*6/uL Hgb 12.1 (12.0-16.0) g/dl Hct 38.8 (37.0-47.0) % MCV 96.8 (80.0-98.0) fL MCH 30.2 (27.0-33.0) pg MCHC 31.2 (31.0-35.0) g/dl RDW 13.8 (11.0-16.0) % Plt Count 300 (160-400) X10*3/uL MPV 9.2 L (9.4-12.3) fL Immature Gran % (Auto) 0.7 H (0.0-0.4) % Neut % (Auto) 61.0 (45-73) % Lymph % (Auto) 30.7 (20-40) % [place] % (Auto) 5.3 (2-11) % Eos % (Auto) 1.6 (0-4) % Baso % (Auto) 0.7 (0-2) % Lymph # (Auto) 3.7 (1.2-4.9) X10*3/uL [place] # (Auto) 0.6 (0.1-1.2) X10*3/uL Eos # (Auto) 0.2 (0.0-0.4) X10*3/uL Baso # (Auto) 0.1 (0.0-0.2) X10*3/uL Abs Immat Gran (auto) 0.08 H (0.00-0.03) X10*3/uL Absolute Neuts (auto) 7.3 (2.0-8.3) x10*3/uL Absolute Nucleated RBC 0.000 (0.0-0.012) X10*3/uL Nucleated RBC % (auto) 0.0 (0.0-0.2) /100WBC Sodium 140 (135-145) mmol/L Potassium 4.8 (3.3-5.1) mmol/L Chloride 104 (96-108) mmol/L Carbon Dioxide 30 H (22-29) mmol/L Anion Gap 11 L (12-20) BUN 9 (9-16) mg/dL Creatinine 0.76 (0.5-1.4) mg/dL Estim Creat Clear Calc 119.6 Estimated GFR > 60 Random Glucose 152 H (60-115) mg/dL Calcium 8.8 D (8.4-10.2) mg/dL COVID-19 (ENDY) Negative (Negative) COVID-19 Clin Com See Note Discharge Plan Discharge Clinical Impression: Asthma with exacerbation Patient Disposition: Home, Self-Care Instructions: Asthma (ED), Asthma (DC), How to Use a Metered-Dose Inhaler (ED) Additional Instructions: Please take prednisone flaxseed days knee to inhaler every 4 hours have any other concerns please do not hesitate to come back to emergency department. Prescriptions: New benzonatate 100 mg capsule 100 mg PO BID PRN (Reason: cough) Qty: 20 0RF prednisone 20 mg tablet 60 mg PO DAILY 5 Days Qty: 15 0RF No Action valacyclovir 1 gram Tablet 1,000 mg PO BID 30 Days Qty: 60 0RF albuterol sulfate 90 mcg/actuation HFA aerosol inhaler 2 puff inhalation Q4-6H PRN (Reason: shortness of breath or wheezing) 30 Days Qty: 8.5 0RF oxcarbazepine 150 mg Tablet 150 mg PO BID Qty: 60 0RF olanzapine 10 mg Tablet 10 mg PO BEDTIME Qty: 30 0RF clonidine HCl 0.2 mg Tablet 0.2 mg PO BEDTIME Qty: 30 0RF Protocol: Hold for SBP< HOLD for SBP < : 90 trazodone 100 mg Tablet 200 mg PO BEDTIME Qty: 60 0RF lithium carbonate 300 mg Capsule 600 mg PO BID Qty: 120 0RF ropinirole 0.5 mg Tablet 0.5 mg PO BEDTIME Qty: 30 0RF omeprazole 20 mg Capsule,Delayed Release(Dr/Ec) 20 mg PO DAILY@0630 Qty: 30 0RF sertraline 50 mg Tablet 50 mg PO DAILY Qty: 30 0RF cholecalciferol (vitamin D3) 25 mcg (1,000 unit) Tablet 25 mcg PO DAILY Qty: 30 0RF ferrous sulfate 324 mg (65 mg iron) Tablet,Delayed Release (Dr/Ec) 324 mg PO DAILY Qty: 30 0RF gabapentin 100 mg capsule 300 mg PO TID 0RF
[2022-02-23 14:31] VITALS: BP 137/70; BP 148/75; PULSE 82; PULSE 88; RESP 14; TEMP 36.7; O2SAT 92; O2SAT 97; BMI 47.9
[2022-02-23 14:59] VITALS: PULSE 79; RESP 16; O2SAT 98
[2022-02-23] MEDS: Albuterol Sulfate (0.083%) 2.5 MG/3 ML VIAL.NEB 5 MG INHALE (14:59)
[2022-02-23 15:00] LABS: MANUAL DIFF FLAG NO
[2022-02-23 15:02] LABS: Basophils Absolute Auto 0.1 X10*3/uL (0.0-0.2); Basophils Percent Auto 0.7 % (0-2); Eosinophils Absolute Auto 0.2 X10*3/uL (0.0-0.4); Eosinophils Percent Auto 1.6 % (0-4); Hematocrit 38.8 % (37.0-47.0); Hemoglobin 12.1 g/dl (12.0-16.0); Imm Gran Abs Auto 0.08 X10*3/uL (0.00-0.03); Imm Gran Pct Auto 0.7 % (0.0-0.4); Lymphocytes Absolute Auto 3.7 X10*3/uL (1.2-4.9); Lymphocytes Percent Auto 30.7 % (20-40); Mean Corpuscular HGB Conc 31.2 g/dl (31.0-35.0); Mean Corpuscular Hemoglobin 30.2 pg (27.0-33.0); Mean Corpuscular Volume 96.8 fL (80.0-98.0); Mean Platelet Volume 9.2 fL (9.4-12.3); Monocytes Absolute Auto 0.6 X10*3/uL (0.1-1.2); Monocytes Percent Auto 5.3 % (2-11); Neutrophils Absolute Auto 7.3 x10*3/uL (2.0-8.3); Platelet Count 300 X10*3/uL (160-400); Red Blood Count 4.01 X10*6/uL (4.20-5.50); Red Cell Distribution Width 13.8 % (11.0-16.0)
[2022-02-23] MEDS: predniSONE 20 MG TABLET 60 MG PO (15:06)
[2022-02-23] MEDS: 0.9 % Sodium Chloride 1,000 ML 999 ML IV (15:07)
[2022-02-23 15:14] LABS: Anion Gap 11 (12-20); Blood Urea Nitrogen 9 mg/dL (9-16); Calcium 8.8 mg/dL (8.4-10.2); Carbon Dioxide 30 mmol/L (22-29); Chloride 104 mmol/L (96-108); Creatinine Clr Calc Pharmacy 119.6; Estimated Glomerular Filt Rate > 60; Glucose Random 152 mg/dL (60-115); Potassium 4.8 mmol/L (3.3-5.1); Sodium 140 mmol/L (135-145)
[2022-02-23 15:20] LABS: COVID-19 Test Negative (Negative)
[2022-02-23 16:37] VITALS: BP 132/69; PULSE 83; RESP 24; TEMP 36.8; O2SAT 91
--- NOTE | 2022-02-23 18:06 | MHC.CM.ED ---
Ambulance arrived for chair van coverage and EMT stated they could not transport this patient. Stated they are not qualified and that discharge from the ED is not a reason for chair van transport. CM offered to re-do paperwork, as pt has COPD and cannot ambulate long distances. EMT state they cannot transport pt. CM spoke with pt. Pt is able to ambulate with her walker. No oxygen. Pt agreeable to [facility]. States she has used them in the past. [facility] obtained. Pt was transported via W/C to waiting car and transported home at 1800.
== END 2022-02-23 17:52 | disposition home or self-care (01) ==
PROVIDERS: Emergency Provider Student in an Organized Health Care Education/Training Program
DX: J45.901 Unspecified asthma with (acute) exacerbation (principal); J44.9 Chronic obstructive pulmonary disease, unspecified; F17.210 Nicotine dependence, cigarettes, uncomplicated; Z20.822 Contact with and (suspected) exposure to COVID-19
CPT/HCPCS: 36415; 71045; 80048; 85025; 87635; 94640; 96360; 99283; 99284

== ENCOUNTER 2022-03-02 21:02 | Inpatient (IN) | payer OTHER, SELFPAY ==
--- NOTE | 2022-03-02 | ECG_ITS ---
Test Reason : cocaine + Blood Pressure : / mmHG Vent. Rate : 087 BPM Atrial Rate : 087 BPM P-R Int : 136 ms QRS Dur : 080 ms QT Int : 364 ms P-R-T Axes : 030 042 043 degrees QTc Int : 438 ms Normal sinus rhythm Normal ECG When compared with ECG of 19-JAN-2022 17:40, No significant change was found Referred By: Lamont Damon Electronically Signed By:Deangelo Gutierres
--- NOTE | ~2022-03-02 | CT_ITS ---
CT SOFT TISSUE NECK WITH IV CONTRAST CLINICAL INFORMATION: Left parotid mass. COMPARISON: Ultrasound-guided biopsy 11/18/[address] 10/03/2021. TECHNIQUE: Following the intravenous administration of 60 mL of Omnipaque 350 intravenous contrast, helical imaging was performed in the axial plane with generation of coronal and sagittal reformatted images. This CT examination was performed using dose optimization techniques as appropriate, variously including the following: *Automated exposure control *Adjustment of mA and/or kV according to patient size (this includes techniques or standardized protocols for targeted exams where dose is matched to indication/reason for exam; i.e. extremities or head) *Use of iterative reconstruction technique FINDINGS: Significant increase in size of a large mixed cystic and solid mass extending from the superficial and deep lobes of the posterior aspect of the left parotid gland into the left retroauricular soft tissues inferiorly and into the anterior margin of the left sternocleidomastoid muscle currently measuring up to 4.4 cm TV by 4.2 cm AP in size compared to 2.7 cm TV by 2.9 cm AP on the 10/03/[address] Recommend correlating with the previous biopsy results. Nonpathologic size criteria lymph nodes throughout the remainder of the suprahyoid and infrahyoid neck. No definite superficial mucosal space lesions. No retropharyngeal fluid collections. The right parotid gland, the submandibular glands, and the thyroid gland are unremarkable. Cervical arterial vasculature remains patent. There is multilevel cervical spondylosis. The paranasal sinuses and the mastoid air cells remain well-aerated. The partially imaged intracranial compartment is unremarkable. Imaged lung apices are clear. Imaged upper mediastinum is unremarkable. CT/CT soft tissue neck w con IMPRESSION: Significant increase in size of a large mixed cystic and solid mass extending from the superficial and deep lobes of the posterior aspect of the left parotid gland into the left retroauricular soft tissues inferiorly and into the anterior margin of the left sternocleidomastoid muscle currently measuring up to 4.4 cm TV by 4.2 cm AP in size compared to 2.7 cm TV by 2.9 cm AP on the 10/03/[address] Recommend correlating with the previous biopsy results.
[2022-03-02 21:58] VITALS: BP 130/82; PULSE 93; RESP 16; TEMP 36.1; O2SAT 92; BMI 41.4
--- NOTE | 2022-03-02 22:52 | PC.ADMIT ---
Pt is a 52y/o female admitted on CV from [facility] for SI with a plan to jump over a bridge. Pt is covid negative. Tox screen is negative. Upon admission pt. denies SI/HI, endorsed AVH with command auditory hallucinations telling her to kill herself. Speech is regular with normal rhythm, tone and katia. Pt ambulates with a walker and endorsed recent fall. C-PAP order obtained for Pt's to use her home C-PAP here in the hospital. Pt reports that her meds are not working for her. Pt reports a recent relapse with cocaine. Admission orders obtained.
[2022-03-02] MEDS: Lithium Carbonate 300 MG CAPSULE 600 MG PO (23:23)
[2022-03-02] MEDS: traZODone HCL 100 MG TABLET 200 MG PO (23:23)
[2022-03-02] MEDS: OXcarbazepine 150 MG TABLET PO (23:23)
[2022-03-02] MEDS: OLANZapine 10 MG TABLET PO (23:24)
[2022-03-02] MEDS: Gabapentin 300 MG CAPSULE PO (23:24)
[2022-03-02] MEDS: valACYclovir HCL 1,000 MG TABLET 1000 MG PO (23:24)
[2022-03-02] MEDS: rOPINIRole HCL 0.5 MG TABLET PO (23:24)
[2022-03-03 06:00] VITALS: BP 122/69; PULSE 94; RESP 20; TEMP 36.5; O2SAT 91
[2022-03-03 09:10] LABS: Alanine Aminotransferase 42 U/L (0-31); Albumin Level 4.2 g/dL (3.5-5.0); Alkaline Phosphatase 69 U/L (39-117); Anion Gap 13 (12-20); Aspartate Amino Transferase 78 U/L (5-31); Bilirubin Total 0.3 mg/dL (0.0-1.0); Blood Urea Nitrogen 12 mg/dL (9-16); Calcium 10.2 mg/dL (8.4-10.2); Carbon Dioxide 32 mmol/L (22-29); Chloride 100 mmol/L (96-108); Cholesterol 193 mg/dL; Estimated Glomerular Filt Rate > 60; Glucose Fasting 111 mg/dL (60-99); HDL Cholesterol 51 mg/dL; LDL Cholesterol Calculated 109 mg/dl; Potassium 5.2 mmol/L (3.3-5.1); Sodium 140 mmol/L (135-145); Total Protein 6.6 g/dL (6.5-8.0); Triglycerides 165 mg/dL
[2022-03-03] MEDS: Lithium Carbonate 300 MG CAPSULE 600 MG PO ×2 (09:11→21:22)
[2022-03-03] MEDS: Sertraline HCL 50 MG TABLET PO (09:11)
[2022-03-03] MEDS: Gabapentin 300 MG CAPSULE PO ×3 (09:11→21:22)
[2022-03-03] MEDS: Ferrous Sulfate 324 MG TABLET.DR PO (09:12)
[2022-03-03] MEDS: Omeprazole 20 MG CAPSULE.DR PO (09:12)
[2022-03-03] MEDS: Cholecalciferol (Vitamin D3) 25 MCG TABLET PO (09:12)
[2022-03-03] MEDS: OXcarbazepine 150 MG TABLET PO ×2 (09:12→21:19)
[2022-03-03] MEDS: valACYclovir HCL 1,000 MG TABLET 1000 MG PO ×2 (09:12→21:21)
[2022-03-03] MEDS: predniSONE 20 MG TABLET 60 MG PO (09:15)
[2022-03-03] MEDS: Acetaminophen 325 MG TABLET 650 MG PO (12:35)
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
--- NOTE | 2022-03-03 16:14 | P.PNPSI_ITS ---
Subjective Subjective Reason For Visit: acute psychosis Diagnostics Vital Signs (24Hr): Vital Signs - 24 hr 03/02/22 21:58 03/03/22 06:00 Temperature 96.9 F 97.7 F Pulse Rate 93 94 Respiratory Rate 16 20 Blood Pressure 130/82 122/69 Pulse Oximetry 92 91 L BMI result Body Mass Index 41.4 Labs Results: 03/03/22 07:56 Labs: Laboratory Results - last 48 hr 03/03/22 07:56 Sodium 140 Potassium 5.2 H Chloride 100 Carbon Dioxide 32 H Anion Gap 13 BUN 12 Creatinine 0.75 Estim Creat Clear Calc 115.0 Estimated GFR > 60 Fasting Glucose 111 H Calcium 10.2 D Total Bilirubin 0.3 AST 78 H ALT 42 H Alkaline Phosphatase 69 Total Protein 6.6 Albumin 4.2 Triglycerides 165 Cholesterol 193 LDL Cholesterol, Calc 109 HDL Cholesterol 51 Medications Medications Current Medications Acetaminophen (Acetaminophen 325 Mg Tablet) 650 mg PO Q6H PRN PRN Reason: Headache/Pain Mild Scale (1-3) Last Admin: 03/03/22 12:35 Dose: 650 mg Documented by: Al Hydroxide/Mg Hydroxide (Magnesium Hydrox/Alum Hydrox 30 Ml Oral.Susp) 30 ml PO Q6H PRN PRN Reason: Heartburn/Nausea Albuterol Sulfate (Albuterol Sulfate 90 Mcg 8 Gm Inhaler) 2 puff INHALE Q4H PRN PRN Reason: shortness of breath or wheezin Benzonatate (Benzonatate 100 Mg Capsule) 100 mg PO BID PRN PRN Reason: cough Clonidine HCl (Clonidine Hcl 0.2 Mg Tablet) 0.2 mg PO BEDTIME [facility]; Protocol Ferrous Sulfate (Ferrous Sulfate 324 Mg Tablet.) 324 mg PO DAILY [facility] Last Admin: 03/03/22 09:12 Dose: 324 mg Documented by: Gabapentin (Gabapentin 300 Mg Capsule) 300 mg PO TID [facility] Last Admin: 03/03/22 14:18 Dose: 300 mg Documented by: Hydroxyzine HCl (Hydroxyzine Hcl 25 Mg Tablet) 25 mg PO QID PRN PRN Reason: Anxiety [place] Carbonate ([place] Carbonate 300 Mg Capsule) 600 mg PO BID [facility] Last Admin: 03/03/22 09:11 Dose: 600 mg Documented by: Magnesium Hydroxide (Milk Of Magnesia 30 Ml Oral.Susp) 30 ml PO DAILY PRN PRN Reason: Constipation Nicotine (Nicotine 21 Mg Patch.Td24) 21 mg TRANSDERMA DAILY PRN PRN Reason: nicotine cravings Nicotine Polacrilex (Nicotine Polacrilex 2 Mg Gum) 4 mg BUCCAL Q2H PRN PRN Reason: Nicotine Cravings Olanzapine (Olanzapine 10 Mg Tablet) 10 mg PO BEDTIME [facility] Last Admin: 03/02/22 23:24 Dose: 10 mg Documented by: Omeprazole (Omeprazole 20 Mg Capsule.Dr) 20 mg PO DAILY@0630 [facility] Last Admin: 03/03/22 09:12 Dose: 20 mg Documented by: Oxcarbazepine (Oxcarbazepine 150 Mg Tablet) 150 mg PO BID [facility] Last Admin: 03/03/22 09:12 Dose: 150 mg Documented by: Prednisone (Prednisone 20 Mg Tablet) 60 mg PO DAILY [facility] Last Admin: 03/03/22 09:15 Dose: 60 mg Documented by: Ropinirole HCl (Ropinirole Hcl 0.5 Mg Tablet) 0.5 mg PO BEDTIME [facility] Last Admin: 03/02/22 23:24 Dose: 0.5 mg Documented by: Sertraline HCl (Sertraline Hcl 50 Mg Tablet) 50 mg PO DAILY [facility] Last Admin: 03/03/22 09:11 Dose: 50 mg Documented by: Trazodone HCl (Trazodone Hcl 100 Mg Tablet) 200 mg PO BEDTIME [facility] Last Admin: 03/02/22 23:23 Dose: 200 mg Documented by: Valacyclovir HCl (Valacyclovir Hcl 1,000 Mg Tablet) 1,000 mg PO BID [facility] Last Admin: 03/03/22 09:12 Dose: 1,000 mg Documented by: Vitamin D (Cholecalciferol (Vitamin D3) 25 Mcg Tablet) 25 mcg PO DAILY [facility] Last Admin: 03/03/22 09:12 Dose: 25 mcg Documented by: Allergies Allergies Allergy/AdvReac Type Severity Reaction Status Date / Time aspirin [Aspirin] Allergy Severe HIVES,THROAT Verified 10/13/21 04:51 SWELLS bee pollen [BEE STINGS] Allergy Severe ANAPHYLAXIS Verified 10/13/21 04:51 diphenhydramine Allergy Severe hives, Verified 10/13/21 04:51 [From BENADRYL ALLERGY] throat swells Penicillins [PCN] Allergy Severe HIVES Verified 10/13/21 04:51 THROAT SWELLS Sulfa (Sulfonamide Allergy Intermediate HIVES Verified 10/13/21 04:51 Antibiotics) [SULFA (SULFONAMIDE ANTIBIOTICS)] tramadol [TRAMADOL] Allergy Intermediate ITCHING Verified 10/13/21 04:51 latex [LATEX] Allergy Unknown UNKNOWN Verified 10/13/21 04:51 penicillin G Allergy Unknown Unknown Verified 10/13/21 04:51 levofloxacin [From Levaquin] Allergy Hives Verified 10/13/21 04:51 hydroxyzine AdvReac Severe restless Verified 01/27/22 19:57 legs bee stings Allergy Unknown Unknown Uncoded 10/13/21 04:51 D[employer] Allergy Unknown Unknown Uncoded 10/13/21 04:51 sulfa drugs Allergy Unknown Unknown Uncoded 10/13/21 04:51 Assessment & Plan Assessment & Plan (1) Routine medical exam: Status: Acute Code(s): Z00.00 - Encounter for general adult medical examination without abnormal findings Plan 52 yo F admitted to inpatient psych. Medical consult for routine medical H&P. Has multiple chronic medical issues including COPD/FABIOLA. Medically stable. Continue baseline medications. Also endorses she uses CPAP at night. Will sign off. Please reconsult PRN. I spent minutes with the patient and/or on the patient floor today, greater than?50% of which was spent counseling/coordinating care.
[2022-03-03 18:00] VITALS: BP 141/90; PULSE 95; RESP 22; TEMP 37.1; O2SAT 92
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
[2022-03-03] MEDS: OLANZapine 10 MG TABLET PO (21:20)
[2022-03-03] MEDS: cloNIDine HCL 0.2 MG TABLET PO (21:20)
[2022-03-03] MEDS: traZODone HCL 100 MG TABLET 200 MG PO (21:21)
[2022-03-03] MEDS: Benztropine Mesylate 1 MG TABLET PO (21:21)
[2022-03-03] MEDS: rOPINIRole HCL 0.5 MG TABLET PO (21:22)
[2022-03-04] MEDS: Omeprazole 20 MG CAPSULE.DR PO (06:04)
[2022-03-04 07:00] VITALS: BMI 44.9
[2022-03-04] MEDS: Ferrous Sulfate 324 MG TABLET.DR PO (08:40)
[2022-03-04] MEDS: Sertraline HCL 50 MG TABLET PO (08:40)
[2022-03-04] MEDS: Lithium Carbonate 300 MG CAPSULE 600 MG PO ×2 (08:40→20:20)
[2022-03-04] MEDS: OXcarbazepine 150 MG TABLET PO ×2 (08:40→20:21)
[2022-03-04] MEDS: Gabapentin 300 MG CAPSULE PO ×3 (08:40→20:20)
[2022-03-04] MEDS: predniSONE 20 MG TABLET 60 MG PO (08:40)
[2022-03-04] MEDS: Benztropine Mesylate 1 MG TABLET PO ×2 (08:40→20:21)
[2022-03-04] MEDS: valACYclovir HCL 1,000 MG TABLET 1000 MG PO ×2 (08:40→20:21)
[2022-03-04] MEDS: Cholecalciferol (Vitamin D3) 25 MCG TABLET PO (08:40)
[2022-03-04] MEDS: Fluticasone/Vilanterol 200/25 BLST.W.DEV 1 PUFF INHALE (08:41)
[2022-03-04 09:21] LABS: Potassium 4.7 mmol/L (3.3-5.1)
[2022-03-04 09:26] LABS: Lithium 0.55 mmol/L (0.60-1.20)
[2022-03-04 09:53] LABS: Thyroid Stimulating Hormone 0.76 uIU/mL (0.32-4.0)
[2022-03-04 10:31] LABS: Folate 9.4 ng/mL (> or = 4.0); Vitamin B12 245 pg/mL (200-900)
[2022-03-04] MEDS: Ibuprofen 800 MG TABLET PO (11:11)
[2022-03-04 11:13] VITALS: BP 119/62; PULSE 91; RESP 18; TEMP 36.9; O2SAT 92
--- NOTE | 2022-03-04 17:22 | P.PNPSI_ITS ---
Subjective Subjective Date of Service: 03/04/22 Reason For Visit: acute psychosis Interim History: Patient seen and discussed with team. Patient evaluated today and upon interview she reports she feels drained and that its not me. Says sleep is not good, has brought her own CPAP. Says trazodone is not cutting it, wants something more for falling sleep. Seroquel makes her nauseous in the morning, even on low doses, says thorazine causes the thorazine shuffles. ? In the milieu, patient is safe but intrusive in behavior. Denies SI/SIB/HI upon inquiry. Denies irritability or assaultive ideation. Says she feels safe. Medication Compliance: Yes Side effects from medications: No Attending Groups: Yes Review of Systems Acute medical concerns: No Medical Review of Systems: unchanged Mental Status Exam Mental Status Exam Narrative: Patient Appearance:?Appropriate Patient Orientation:?Person, Place, Time and Situation Level of Consciousness:?Alert Patient Behavior:?Talkative and Good Eye Contact Mood Description:?Depressed and Anxious Affect Description:?Flat Patient Cognition Impaired:?No Ability to Follow Directions:?Good Speech Pattern:?Spontaneous Speech Memory Description:?Intact Hallucinations:?Auditory Delusions:?Paranoid Ideation Perceptual Disturbances:?Depersonalization and Derealization Thought Process:?Rumination Thought Content:?positive for Circumstantial, positive for Perseveration and positive for Suicidal Ideation Depressive Symptoms:?Increased Anxiety, Insomnia, Diff. Making Decisions, Difficulty Sleeping and Thoughts of /Suicide Judgment:?Fair Diagnostics Vital Signs (24Hr): Vital Signs - 24 hr 03/03/22 18:00 03/04/22 11:13 Temperature 98.7 F 98.4 F Pulse Rate 95 91 Respiratory Rate 22 H 18 Blood Pressure 141/90 H 119/62 Pulse Oximetry 92 92 BMI result Body Mass Index 44.9 Labs Results: 03/04/22 08:27 Labs: Laboratory Results - last 48 hr 03/03/22 03/04/22 03/04/22 07:56 08:27 08:27 Sodium 140 Potassium 5.2 H 4.7 Chloride 100 Carbon Dioxide 32 H Anion Gap 13 BUN 12 Creatinine 0.75 Estim Creat Clear Calc 115.0 Estimated GFR > 60 Fasting Glucose 111 H Calcium 10.2 D Total Bilirubin 0.3 AST 78 H ALT 42 H Alkaline Phosphatase 69 Total Protein 6.6 Albumin 4.2 Triglycerides 165 Cholesterol 193 LDL Cholesterol, Calc 109 HDL Cholesterol 51 Vitamin B12 Folate TSH 0.76 [place] 03/04/22 03/04/22 08:27 08:27 Sodium Potassium Chloride Carbon Dioxide Anion Gap BUN Creatinine Estim Creat Clear Calc Estimated GFR Fasting Glucose Calcium Total Bilirubin AST ALT Alkaline Phosphatase Total Protein Albumin Triglycerides Cholesterol LDL Cholesterol, Calc HDL Cholesterol Vitamin B12 245 Folate 9.4 TSH [place] 0.55 L Medications Medications Current Medications Acetaminophen (Acetaminophen 325 Mg Tablet) 650 mg PO Q6H PRN PRN Reason: Headache/Pain Mild Scale (1-3) Last Admin: 03/03/22 12:35 Dose: 650 mg Documented by: Al Hydroxide/Mg Hydroxide (Magnesium Hydrox/Alum Hydrox 30 Ml Oral.Susp) 30 ml PO Q6H PRN PRN Reason: Heartburn/Nausea Albuterol Sulfate (Albuterol Sulfate 90 Mcg 8 Gm Inhaler) 2 puff INHALE Q4H PRN PRN Reason: shortness of breath or wheezin Benzonatate (Benzonatate 100 Mg Capsule) 100 mg PO BID PRN PRN Reason: cough Benztropine Mesylate (Benztropine Mesylate 1 Mg Tablet) 1 mg PO BID [facility] Last Admin: 03/04/22 08:40 Dose: 1 mg Documented by: Clonidine HCl (Clonidine Hcl 0.2 Mg Tablet) 0.2 mg PO BEDTIME [facility]; Protocol Last Admin: 03/03/22 21:20 Dose: 0.2 mg Documented by: Ferrous Sulfate (Ferrous Sulfate 324 Mg Tablet.) 324 mg PO DAILY [facility] Last Admin: 03/04/22 08:40 Dose: 324 mg Documented by: Fluticasone/Vilanterol (Fluticasone/Vilanterol 200/25 Blst.W.Dev) 1 puff INHALE RDAILY [facility] Last Admin: 03/04/22 08:41 Dose: 1 puff Documented by: Gabapentin (Gabapentin 300 Mg Capsule) 300 mg PO TID [facility] Last Admin: 03/04/22 14:47 Dose: 300 mg Documented by: Hydroxyzine HCl (Hydroxyzine Hcl 25 Mg Tablet) 25 mg PO QID PRN PRN Reason: Anxiety Ibuprofen (Ibuprofen 800 Mg Tablet) 800 mg PO Q8H PRN PRN Reason: Pain, Mild (Pain Scale 1-3) Last Admin: 03/04/22 11:11 Dose: 800 mg Documented by: [place] Carbonate ([place] Carbonate 300 Mg Capsule) 600 mg PO BID [facility] Last Admin: 03/04/22 08:40 Dose: 600 mg Documented by: Magnesium Hydroxide (Milk Of Magnesia 30 Ml Oral.Susp) 30 ml PO DAILY PRN PRN Reason: Constipation Nicotine (Nicotine 21 Mg Patch.Td24) 21 mg TRANSDERMA DAILY PRN PRN Reason: nicotine cravings Nicotine Polacrilex (Nicotine Polacrilex 2 Mg Gum) 4 mg BUCCAL Q2H PRN PRN Reason: Nicotine Cravings Olanzapine (Olanzapine 10 Mg Tablet) 10 mg PO BEDTIME [facility] Last Admin: 03/03/22 21:20 Dose: 10 mg Documented by: Omeprazole (Omeprazole 20 Mg Capsule.Dr) 20 mg PO DAILY@0630 [facility] Last Admin: 03/04/22 06:04 Dose: 20 mg Documented by: Oxcarbazepine (Oxcarbazepine 150 Mg Tablet) 150 mg PO BID [facility] Last Admin: 03/04/22 08:40 Dose: 150 mg Documented by: Prednisone (Prednisone 20 Mg Tablet) 60 mg PO DAILY [facility] Last Admin: 03/04/22 08:40 Dose: 60 mg Documented by: Ropinirole HCl (Ropinirole Hcl 0.5 Mg Tablet) 0.5 mg PO BEDTIME [facility] Last Admin: 03/03/22 21:22 Dose: 0.5 mg Documented by: Sertraline HCl (Sertraline Hcl 50 Mg Tablet) 50 mg PO DAILY [facility] Last Admin: 03/04/22 08:40 Dose: 50 mg Documented by: Trazodone HCl (Trazodone Hcl 100 Mg Tablet) 200 mg PO BEDTIME [facility] Last Admin: 03/03/22 21:21 Dose: 200 mg Documented by: Valacyclovir HCl (Valacyclovir Hcl 1,000 Mg Tablet) 1,000 mg PO BID [facility] Last Admin: 03/04/22 08:40 Dose: 1,000 mg Documented by: Vitamin D (Cholecalciferol (Vitamin D3) 25 Mcg Tablet) 25 mcg PO DAILY [facility] Last Admin: 03/04/22 08:40 Dose: 25 mcg Documented by: Allergies Allergies Allergy/AdvReac Type Severity Reaction Status Date / Time aspirin [Aspirin] Allergy Severe HIVES,THROAT Verified 10/13/21 04:51 SWELLS bee pollen [BEE STINGS] Allergy Severe ANAPHYLAXIS Verified 10/13/21 04:51 diphenhydramine Allergy Severe hives, Verified 10/13/21 04:51 [From BENADRYL ALLERGY] throat swells Penicillins [PCN] Allergy Severe HIVES Verified 10/13/21 04:51 THROAT SWELLS Sulfa (Sulfonamide Allergy Intermediate HIVES Verified 10/13/21 04:51 Antibiotics) [SULFA (SULFONAMIDE ANTIBIOTICS)] tramadol [TRAMADOL] Allergy Intermediate ITCHING Verified 10/13/21 04:51 latex [LATEX] Allergy Unknown UNKNOWN Verified 10/13/21 04:51 penicillin G Allergy Unknown Unknown Verified 10/13/21 04:51 levofloxacin [From Levaquin] Allergy Hives Verified 10/13/21 04:51 hydroxyzine AdvReac Severe restless Verified 01/27/22 19:57 legs bee stings Allergy Unknown Unknown Uncoded 10/13/21 04:51 D[employer] Allergy Unknown Unknown Uncoded 10/13/21 04:51 sulfa drugs Allergy Unknown Unknown Uncoded 10/13/21 04:51 Assessment & Plan Assessment & Plan (1) PTSD (post-traumatic stress disorder): Status: Acute Code(s): F43.10 - Post-traumatic stress disorder, unspecified (2) Bipolar disorder: Status: Acute Code(s): F31.9 - Bipolar disorder, unspecified (3) Cocaine use disorder: Status: Acute Code(s): F14.10 - Cocaine abuse, uncomplicated Plan 52 yo female, transfer from [facility] with SI, plan and command hallucinations. Hx of bipolar disorder, PTSD, substance use (cocaine) and increasing medical problems. Plan: 1. Labs- [place], K, TSH, FT4, B12,Folate 2. Re-establish regime 3. Pain mgt-fibromyalgia, hip pain 4. Pt agrees at this time to her social welfare administrator's suggestion of a rest home. Will pursue with the team. 5. Addictions work 6. Benztropine, Breo Inhaler restarted. 7. start remeron 7.5 mg QHS for sleep onset I spent minutes with the patient and/or on the patient floor today, greater than?50% of which was spent counseling/coordinating care. Patient educated on: medication risk/benefits Reason for contiued inpatient stay Substantial Risk for: inability to function and med/psych decompensation
[2022-03-04 20:15] VITALS: BP 140/86; PULSE 79
[2022-03-04] MEDS: rOPINIRole HCL 0.5 MG TABLET PO (20:20)
[2022-03-04] MEDS: Mirtazapine 7.5 MG TABLET PO (20:20)
[2022-03-04] MEDS: cloNIDine HCL 0.2 MG TABLET PO (20:20)
[2022-03-04] MEDS: OLANZapine 10 MG TABLET PO (20:20)
[2022-03-04] MEDS: traZODone HCL 100 MG TABLET 200 MG PO (20:21)
[2022-03-05] MEDS: Omeprazole 20 MG CAPSULE.DR PO (06:09)
[2022-03-05] MEDS: Ferrous Sulfate 324 MG TABLET.DR PO (08:23)
[2022-03-05] MEDS: Cholecalciferol (Vitamin D3) 25 MCG TABLET PO (08:23)
[2022-03-05] MEDS: Gabapentin 300 MG CAPSULE PO (08:23)
[2022-03-05] MEDS: Benztropine Mesylate 1 MG TABLET PO ×2 (08:23→19:58)
[2022-03-05] MEDS: valACYclovir HCL 1,000 MG TABLET 1000 MG PO ×2 (08:23→19:58)
[2022-03-05] MEDS: predniSONE 20 MG TABLET 60 MG PO (08:23)
[2022-03-05] MEDS: Lithium Carbonate 300 MG CAPSULE 600 MG PO ×2 (08:23→19:57)
[2022-03-05] MEDS: OXcarbazepine 150 MG TABLET PO ×2 (08:23→19:57)
[2022-03-05] MEDS: Sertraline HCL 50 MG TABLET PO (08:23)
[2022-03-05] MEDS: Fluticasone/Vilanterol 200/25 BLST.W.DEV 1 PUFF INHALE (08:25)
[2022-03-05] MEDS: Ibuprofen 800 MG TABLET PO (09:37)
[2022-03-05 09:46] VITALS: BP 111/56; PULSE 81; RESP 18; TEMP 36.7; O2SAT 91
--- NOTE | 2022-03-05 11:56 | P.PNPSI_ITS ---
Subjective Subjective Date of Service: 03/05/22 Reason For Visit: acute psychosis Subjective Notes: Conditional Voluntary Healthcare Proxy: No Guardianship: No Medical Problems Affecting Mental Status: Yes Interim History: Reports feeling physically unwell. Pain with ambulation, RLS discomfort, neuropathic pain. COPD sx exacerbating and parotid mass she reports an increase in pain. Pulmonary consult much appreciated. Pt to re-start Spiriva. Surgical consult much appreciated. 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 Discussed titration of Gabapentin, Requip and Mirtazapine, plus addition of B12 (level 245). She agrees. Pt's [employer] worker [employer] is working with pt on possible rest home placement which is also much appreciated as pt's medical/psychiatric/addiction issues appear to worsen with her homelessness. Medication Compliance: Yes Side effects from medications: No Attending Groups: Yes Review of Systems Acute medical concerns: Yes as noted above Medical Review of Systems: changed Review of Systems: as noted above Review of Systems Psychiatric: Reports abnormal sleep pattern, Reports anxiety, Reports depression, Reports difficulty concentrating, Reports auditory hallucinations, Reports hopelessness, Reports irritability, Reports anhedonia, Reports mood swings, Reports paranoia and Reports suicidal ideation Mental Status Exam Mental Status Exam Patient Appearance: Appropriate Patient Orientation: Person, Place, Time and Situation Level of Consciousness: Alert Patient Behavior: Talkative and Good Eye Contact Mood Description: Depressed and Anxious Affect Description: Flat Patient Cognition Impaired: No Ability to Follow Directions: Good Speech Pattern: Spontaneous Speech Memory Description: Intact Hallucinations: Auditory Delusions: Paranoid Ideation Perceptual Disturbances: Depersonalization and Derealization Thought Process: Rumination Thought Content: positive for Circumstantial, positive for Perseveration and positive for Suicidal Ideation Depressive Symptoms: Increased Anxiety, Insomnia, Diff. Making Decisions, Difficulty Sleeping and Thoughts of /Suicide Judgement: Fair Diagnostics Vital Signs (24Hr): Vital Signs - 24 hr 03/04/22 20:15 03/05/22 09:46 Temperature 98.1 F Pulse Rate 79 81 Respiratory Rate 18 Blood Pressure 140/86 H 111/56 L Pulse Oximetry 91 L BMI result Body Mass Index 44.9 Labs Results: 03/04/22 08:27 Labs: Laboratory Results - last 48 hr 03/04/22 03/04/22 03/04/22 08:27 08:27 08:27 Potassium 4.7 Vitamin B12 245 Folate 9.4 TSH 0.76 [place] 03/04/22 08:27 Potassium Vitamin B12 Folate TSH [place] 0.55 L Medications Medications Current Medications Acetaminophen (Acetaminophen 325 Mg Tablet) 650 mg PO Q6H PRN PRN Reason: Headache/Pain Mild Scale (1-3) Last Admin: 03/03/22 12:35 Dose: 650 mg Documented by: Al Hydroxide/Mg Hydroxide (Magnesium Hydrox/Alum Hydrox 30 Ml Oral.Susp) 30 ml PO Q6H PRN PRN Reason: Heartburn/Nausea Albuterol Sulfate (Albuterol Sulfate 90 Mcg 8 Gm Inhaler) 2 puff INHALE Q4H PRN PRN Reason: shortness of breath or wheezin Benzonatate (Benzonatate 100 Mg Capsule) 100 mg PO BID PRN PRN Reason: cough Benztropine Mesylate (Benztropine Mesylate 1 Mg Tablet) 1 mg PO BID [facility] Last Admin: 03/05/22 08:23 Dose: 1 mg Documented by: Clonidine HCl (Clonidine Hcl 0.2 Mg Tablet) 0.2 mg PO BEDTIME [facility]; Protocol Last Admin: 03/04/22 20:20 Dose: 0.2 mg Documented by: Cyanocobalamin (Cyanocobalamin (Vitamin B-12) 100 Mcg Tablet) 100 mcg PO DAILY [facility] Ferrous Sulfate (Ferrous Sulfate 324 Mg Tablet.Dr) 324 mg PO DAILY [facility] Last Admin: 03/05/22 08:23 Dose: 324 mg Documented by: Fluticasone/Vilanterol (Fluticasone/Vilanterol 200/25 Blst.W.Dev) 1 puff INHALE RDAILY [facility] Last Admin: 03/05/22 08:25 Dose: 1 puff Documented by: Gabapentin (Gabapentin 400 Mg Capsule) 400 mg PO TID [facility] Hydroxyzine HCl (Hydroxyzine Hcl 25 Mg Tablet) 25 mg PO QID PRN PRN Reason: Anxiety Ibuprofen (Ibuprofen 800 Mg Tablet) 800 mg PO Q8H PRN PRN Reason: Pain, Mild (Pain Scale 1-3) Last Admin: 03/05/22 09:37 Dose: 800 mg Documented by: [place] Carbonate ([place] Carbonate 300 Mg Capsule) 600 mg PO BID [facility] Last Admin: 03/05/22 08:23 Dose: 600 mg Documented by: Magnesium Hydroxide (Milk Of Magnesia 30 Ml Oral.Susp) 30 ml PO DAILY PRN PRN Reason: Constipation Mirtazapine (Mirtazapine 15 Mg Tablet) 15 mg PO BEDTIME [facility] Nicotine (Nicotine 21 Mg Patch.Td24) 21 mg TRANSDERMA DAILY PRN PRN Reason: nicotine cravings Nicotine Polacrilex (Nicotine Polacrilex 2 Mg Gum) 4 mg BUCCAL Q2H PRN PRN Reason: Nicotine Cravings Olanzapine (Olanzapine 10 Mg Tablet) 10 mg PO BEDTIME [facility] Last Admin: 03/04/22 20:20 Dose: 10 mg Documented by: Omeprazole (Omeprazole 20 Mg Capsule.Dr) 20 mg PO DAILY@0630 [facility] Last Admin: 03/05/22 06:09 Dose: 20 mg Documented by: Oxcarbazepine (Oxcarbazepine 150 Mg Tablet) 150 mg PO BID [facility] Last Admin: 03/05/22 08:23 Dose: 150 mg Documented by: Prednisone (Prednisone 20 Mg Tablet) 60 mg PO DAILY [facility] Last Admin: 03/05/22 08:23 Dose: 60 mg Documented by: Ropinirole HCl (Ropinirole Hcl 1 Mg Tablet) 1 mg PO BEDTIME [facility] Sertraline HCl (Sertraline Hcl 50 Mg Tablet) 50 mg PO DAILY [facility] Last Admin: 03/05/22 08:23 Dose: 50 mg Documented by: Trazodone HCl (Trazodone Hcl 100 Mg Tablet) 200 mg PO BEDTIME [facility] Last Admin: 03/04/22 20:21 Dose: 200 mg Documented by: Valacyclovir HCl (Valacyclovir Hcl 1,000 Mg Tablet) 1,000 mg PO BID [facility] Last Admin: 03/05/22 08:23 Dose: 1,000 mg Documented by: Vitamin D (Cholecalciferol (Vitamin D3) 25 Mcg Tablet) 25 mcg PO DAILY [facility] Last Admin: 03/05/22 08:23 Dose: 25 mcg Documented by: Allergies Allergies Allergy/AdvReac Type Severity Reaction Status Date / Time aspirin [Aspirin] Allergy Severe HIVES,THROAT Verified 10/13/21 04:51 SWELLS bee pollen [BEE STINGS] Allergy Severe ANAPHYLAXIS Verified 10/13/21 04:51 diphenhydramine Allergy Severe hives, Verified 10/13/21 04:51 [From BENADRYL ALLERGY] throat swells Penicillins [PCN] Allergy Severe HIVES Verified 10/13/21 04:51 THROAT SWELLS Sulfa (Sulfonamide Allergy Intermediate HIVES Verified 10/13/21 04:51 Antibiotics) [SULFA (SULFONAMIDE ANTIBIOTICS)] tramadol [TRAMADOL] Allergy Intermediate ITCHING Verified 10/13/21 04:51 latex [LATEX] Allergy Unknown UNKNOWN Verified 10/13/21 04:51 penicillin G Allergy Unknown Unknown Verified 10/13/21 04:51 levofloxacin [From Levaquin] Allergy Hives Verified 10/13/21 04:51 hydroxyzine AdvReac Severe restless Verified 01/27/22 19:57 legs bee stings Allergy Unknown Unknown Uncoded 10/13/21 04:51 DairyCare Allergy Unknown Unknown Uncoded 10/13/21 04:51 sulfa drugs Allergy Unknown Unknown Uncoded 10/13/21 04:51 Assessment & Plan Assessment & Plan (1) PTSD (post-traumatic stress disorder): Status: Acute Code(s): F43.10 - Post-traumatic stress disorder, unspecified (2) Bipolar disorder: Status: Acute Code(s): F31.9 - Bipolar disorder, unspecified (3) Cocaine use disorder: Status: Acute Code(s): F14.10 - Cocaine abuse, uncomplicated Plan 52 yo female, transfer from [facility] with SI, plan and command hallucinations. Hx of bipolar disorder, PTSD, substance use (cocaine) and increasing medical problems. Plan: 1. Labs- [place], K, TSH, FT4, B12,Folate 2. Re-establish regime 3. Pain mgt-fibromyalgia, hip pain 4. Pt agrees at this time to her case management social worker's suggestion of a rest home. Will pursue with the team. 5. Addictions work 6. Benztropine, Breo Inhaler restarted. 03/05/22 1. Increase Gabapentin to 400 mg tid 2. Increase Requip to 1 mg HS 3. Increase Remeron to 15 mg HS 4. Vitamin B12 [address] per surgery of parotid mass 6. Begin Spiriva per pulmonary 7. Surgical, Pulmonary and real estate services coordinator consults are much appreciated. I spent minutes with the patient and/or on the patient floor today, greater than?50% of which was spent counseling/coordinating care. Patient educated on: diagnosis, medication risk/benefits, therapeutic strategies and medical condition Informed Consent: understands and further education needed Reason for contiued inpatient stay Substantial Risk for: harm to self, inability to function and med/psych decompensation
[2022-03-05] MEDS: Acetaminophen 325 MG TABLET 650 MG PO (13:07)
[2022-03-05] MEDS: Gabapentin 400 MG CAPSULE PO ×2 (14:02→19:57)
--- NOTE | 2022-03-05 14:09 | P.CONGS_ITS ---
History of Present Illness Consult details Consult date: 03/05/22 Narrative: 52-year-old female referred because of a parotid mass. She was admitted to [facility] Unit last 03/03/2022 because of acute psychosis. She has been having auditory admissions at that time. She has had multiple admissions in the psych unit in the past. She has a long history of bipolar disorder and posttraumatic stress disorder . She has had this mass on the infra-auricular area for several months now. She had an ultrasound last October 2021 showing a heterogenous complex cystic mass in this area. Ultrasound biopsy was done at that time but this was benign. She feels that the mass has been increasing in size. She describes some pain although this is not new. She denies any drainage. Review of Systems Constitutional: Constitutional: Denies chills and Denies fever(s) Cardiovascular: Cardiovascular: Denies chest pain Respiratory: Respiratory: Denies cough Gastrointestinal: Gastrointestinal: Denies no additional gastrointestinal complaints Genitourinary: Genitourinary: Denies hematuria Musculoskeletal: Musculoskeletal: Reports abnormal gait and Denies back pain Neurologic: Reports abnormal gait PMFSH Past Medical History Medical History Asthma exacerbation in COPD Bipolar disorder Bipolar I disorder Borderline personality disorder Borderline personality disorder COPD (chronic obstructive pulmonary disease) Depression Depression Drug abuse Herpes Intermittent explosive disorder Mass of parotid gland FABIOLA (obstructive sleep apnea) Parotid mass Post traumatic stress disorder (PTSD) PTSD (post-traumatic stress disorder) PTSD (post-traumatic stress disorder) Tobacco use Family History Family History Mother COPD (chronic obstructive pulmonary disease) Surgical History Surgical History History of ankle surgery History of appendectomy History of back surgery Hx of cholecystectomy Social History Social History Household Members: Other Household Members Other:: Senior Living in [place] Housing: Homeless Housing Other:: will be getting apartment 07/01 Do you presently have visiting nurse or other home services: No Unable to assess alcohol history related to: Unknown Alcohol intake: never Patient Tobacco Use Status: Current everyday Tobacco user Tobacco use type: Cigarette Cigarette Packs Per Day: 1 Cigarettes Per Day: 20.0 Years Smoked: 38 e-Cigarette/Vaping Use: Currently Using Second Hand Smoke Exposure: Yes Substance Use Type: Crack/Cocaine Advance Directives Date on File: 12/24/20 service: No Current occupational status: unemployed and disabled Sexual orientation: Straight/Heterosexual Meds Allergies Allergy/AdvReac Type Severity Reaction Status Date / Time aspirin [Aspirin] Allergy Severe HIVES,THROAT Verified 10/13/21 04:51 SWELLS bee pollen [BEE STINGS] Allergy Severe ANAPHYLAXIS Verified 10/13/21 04:51 diphenhydramine Allergy Severe hives, Verified 10/13/21 04:51 [From BENADRYL ALLERGY] throat swells Penicillins [PCN] Allergy Severe HIVES Verified 10/13/21 04:51 THROAT SWELLS Sulfa (Sulfonamide Allergy Intermediate HIVES Verified 10/13/21 04:51 Antibiotics) [SULFA (SULFONAMIDE ANTIBIOTICS)] tramadol [TRAMADOL] Allergy Intermediate ITCHING Verified 10/13/21 04:51 latex [LATEX] Allergy Unknown UNKNOWN Verified 10/13/21 04:51 penicillin G Allergy Unknown Unknown Verified 10/13/21 04:51 levofloxacin [From Levaquin] Allergy Hives Verified 10/13/21 04:51 hydroxyzine AdvReac Severe restless Verified 01/27/22 19:57 legs bee stings Allergy Unknown Unknown Uncoded 10/13/21 04:51 D[employer]Care Allergy Unknown Unknown Uncoded 10/13/21 04:51 sulfa drugs Allergy Unknown Unknown Uncoded 10/13/21 04:51 Active Medications: Current Medications Acetaminophen (Acetaminophen 325 Mg Tablet) 650 mg PO Q6H PRN PRN Reason: Headache/Pain Mild Scale (1-3) Last Admin: 03/05/22 13:07 Dose: 650 mg Documented by: Al Hydroxide/Mg Hydroxide (Magnesium Hydrox/Alum Hydrox 30 Ml Oral.Susp) 30 ml PO Q6H PRN PRN Reason: Heartburn/Nausea Albuterol Sulfate (Albuterol Sulfate 90 Mcg 8 Gm Inhaler) 2 puff INHALE Q4H PRN PRN Reason: shortness of breath or wheezin Benzonatate (Benzonatate 100 Mg Capsule) 100 mg PO BID PRN PRN Reason: cough Benztropine Mesylate (Benztropine Mesylate 1 Mg Tablet) 1 mg PO BID [facility] Last Admin: 03/05/22 08:23 Dose: 1 mg Documented by: Clonidine HCl (Clonidine Hcl 0.2 Mg Tablet) 0.2 mg PO BEDTIME [facility]; Protocol Last Admin: 03/04/22 20:20 Dose: 0.2 mg Documented by: Cyanocobalamin (Cyanocobalamin (Vitamin B-12) 100 Mcg Tablet) 100 mcg PO DAILY [facility] Ferrous Sulfate (Ferrous Sulfate 324 Mg Tablet.) 324 mg PO DAILY [facility] Last Admin: 03/05/22 08:23 Dose: 324 mg Documented by: Fluticasone/Vilanterol (Fluticasone/Vilanterol 200/25 Blst.W.Dev) 1 puff INHALE RDAILY [facility] Last Admin: 03/05/22 08:25 Dose: 1 puff Documented by: Gabapentin (Gabapentin 400 Mg Capsule) 400 mg PO TID [facility] Last Admin: 03/05/22 14:02 Dose: 400 mg Documented by: Hydroxyzine HCl (Hydroxyzine Hcl 25 Mg Tablet) 25 mg PO QID PRN PRN Reason: Anxiety Ibuprofen (Ibuprofen 800 Mg Tablet) 800 mg PO Q8H PRN PRN Reason: Pain, Mild (Pain Scale 1-3) Last Admin: 03/05/22 09:37 Dose: 800 mg Documented by: [place] Carbonate ([place] Carbonate 300 Mg Capsule) 600 mg PO BID [facility] Last Admin: 03/05/22 08:23 Dose: 600 mg Documented by: Magnesium Hydroxide (Milk Of Magnesia 30 Ml Oral.Susp) 30 ml PO DAILY PRN PRN Reason: Constipation Mirtazapine (Mirtazapine 15 Mg Tablet) 15 mg PO BEDTIME [facility] Nicotine (Nicotine 21 Mg Patch.Td24) 21 mg TRANSDERMA DAILY PRN PRN Reason: nicotine cravings Nicotine Polacrilex (Nicotine Polacrilex 2 Mg Gum) 4 mg BUCCAL Q2H PRN PRN Reason: Nicotine Cravings Olanzapine (Olanzapine 10 Mg Tablet) 10 mg PO BEDTIME [facility] Last Admin: 03/04/22 20:20 Dose: 10 mg Documented by: Omeprazole (Omeprazole 20 Mg Capsule.) 20 mg PO DAILY@0630 [facility] Last Admin: 03/05/22 06:09 Dose: 20 mg Documented by: Oxcarbazepine (Oxcarbazepine 150 Mg Tablet) 150 mg PO BID [facility] Last Admin: 03/05/22 08:23 Dose: 150 mg Documented by: Prednisone (Prednisone 20 Mg Tablet) 60 mg PO DAILY [facility] Last Admin: 03/05/22 08:23 Dose: 60 mg Documented by: Ropinirole HCl (Ropinirole Hcl 1 Mg Tablet) 1 mg PO BEDTIME [facility] Sertraline HCl (Sertraline Hcl 50 Mg Tablet) 50 mg PO DAILY [facility] Last Admin: 03/05/22 08:23 Dose: 50 mg Documented by: Trazodone HCl (Trazodone Hcl 100 Mg Tablet) 200 mg PO BEDTIME [facility] Last Admin: 03/04/22 20:21 Dose: 200 mg Documented by: Valacyclovir HCl (Valacyclovir Hcl 1,000 Mg Tablet) 1,000 mg PO BID [facility] Last Admin: 03/05/22 08:23 Dose: 1,000 mg Documented by: Vitamin D (Cholecalciferol (Vitamin D3) 25 Mcg Tablet) 25 mcg PO DAILY [facility] Last Admin: 03/05/22 08:23 Dose: 25 mcg Documented by: Physical Exam Vital Signs: Vital Signs: Last Vital Signs Temp 98.1 F 03/05/22 09:46 Pulse 81 03/05/22 09:46 Resp 18 03/05/22 09:46 BP 111/56 L 03/05/22 09:46 Pulse Ox 91 L 03/05/22 09:46 BMI result Body Mass Index 44.9 Const: Other: Walks with a walker, seems to have difficulty moving around General: comfortable and no acute distress Neck: Other: Left infra-auricular area with note of a firm smooth mass, about 4.5 cm, no cellulitis, no fluctuance, no drainage, no skin changes Resp: Effort & Inspection: normal respiratory effort Cardio: Rhythm: regular rhythm GI: Palpation (GI): Soft to palpation and nontender Results Labs Result diagrams: 03/04/22 08:27 Labs: All other labs normal. Assessment and Plan (1) Parotid mass: Status: Acute She has a left parotid mass described above. This had undergone ultrasound- guided biopsy with a needle last December 2021 and the path report showed benign findings. The seemed to suggest sialoadenitis. This mass has persisted and patient says that this has increased in size. I would recommend doing a CT scan to further define this mass. She may need a repeat biopsy for this. Most of this workup may probably be done as an outpatient in view of her current acute psychiatric issues. I will order the CT scan for now. Again, this is not urgent. I will follow along next week. Procedures Date of Service Date of Service: 03/05/22
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
[2022-03-05 18:00] VITALS: BP 133/63; PULSE 79; RESP 16; TEMP 36.8; O2SAT 94
[2022-03-05] MEDS: iohexoL 350 MG/ML 100 ML INFUS..BTL IV (19:16)
[2022-03-05 19:35] VITALS: BP 134/79; PULSE 77
[2022-03-05] MEDS: traZODone HCL 100 MG TABLET 200 MG PO (19:57)
[2022-03-05] MEDS: OLANZapine 10 MG TABLET PO (19:57)
[2022-03-05] MEDS: cloNIDine HCL 0.2 MG TABLET PO (19:57)
[2022-03-05] MEDS: rOPINIRole HCL 1 MG TABLET PO (19:57)
[2022-03-05] MEDS: Mirtazapine 15 MG TABLET PO (19:58)
[2022-03-06] MEDS: Acetaminophen 325 MG TABLET 650 MG PO ×2 (05:49→16:40)
[2022-03-06] MEDS: Omeprazole 20 MG CAPSULE.DR PO (05:49)
[2022-03-06 06:00] VITALS: BP 113/67; PULSE 76; RESP 16; TEMP 36.7; O2SAT 90
[2022-03-06] MEDS: Fluticasone/Vilanterol 200/25 BLST.W.DEV 1 PUFF INHALE (09:05)
[2022-03-06] MEDS: Benztropine Mesylate 1 MG TABLET PO ×2 (09:06→22:00)
[2022-03-06] MEDS: Sertraline HCL 50 MG TABLET PO (09:07)
[2022-03-06] MEDS: Ferrous Sulfate 324 MG TABLET.DR PO (09:07)
[2022-03-06] MEDS: OXcarbazepine 150 MG TABLET PO ×2 (09:07→22:01)
[2022-03-06] MEDS: valACYclovir HCL 1,000 MG TABLET 1000 MG PO ×2 (09:07→22:01)
[2022-03-06] MEDS: Lithium Carbonate 300 MG CAPSULE 600 MG PO ×2 (09:07→22:00)
[2022-03-06] MEDS: Gabapentin 400 MG CAPSULE PO ×3 (09:07→22:00)
[2022-03-06] MEDS: Cholecalciferol (Vitamin D3) 25 MCG TABLET PO (09:07)
[2022-03-06] MEDS: Cyanocobalamin (Vitamin B-12) 100 MCG TABLET PO (09:07)
[2022-03-06] MEDS: predniSONE 20 MG TABLET 60 MG PO (09:07)
[2022-03-06] MEDS: hydrOXYzine HCL 25 MG TABLET PO ×2 (11:25→22:04)
[2022-03-06] MEDS: Albuterol Sulfate 90 MCG 8 GM INHALER 2 PUFF INHALE (16:37)
--- NOTE | 2022-03-06 16:40 | HO.PSYCHPN ---
Subjective Subjective Date of Service: 03/06/22 Reason For Visit: acute psychosis Interim History: Patient reports that she is feeling anxious and tired. Mostly her anxiety is regarding parotid gland infection. Patient is pending MRI and biopsy. Patient said that she wants to go to rest home and that if she gets all upset and demands discharge, to not discharge or but keep her because she knows she needs to go to rest home and does not want to sabotage herself. Mental Status Exam Mental Status Exam Narrative: Patient Appearance:?Appropriate Patient Orientation:?Person, Place, Time and Situation Level of Consciousness:?Alert Patient Behavior:?Talkative and Good Eye Contact Mood Description:?Depressed and Anxious Affect Description:?Flat Patient Cognition Impaired:?No Ability to Follow Directions:?Good Speech Pattern:?Spontaneous Speech Memory Description:?Intact Hallucinations:?Auditory Delusions:?Paranoid Ideation Perceptual Disturbances:?Depersonalization and Derealization Thought Process:?Rumination Thought Content:? denies SI or HI Depressive Symptoms:?Increased Anxiety, Insomnia, Diff. Making Decisions, Difficulty Sleeping and Thoughts of /Suicide Judgement:?Fair Diagnostics Vital Signs (24Hr): Vital Signs - 24 hr 03/05/22 18:00 03/05/22 19:35 03/06/22 06:00 Temperature 98.2 F 98.1 F Pulse Rate 79 77 76 Respiratory Rate 16 16 Blood Pressure 133/63 134/79 113/67 Pulse Oximetry 94 90 L BMI result Body Mass Index 44.9 Labs Results: 03/04/22 08:27 Imaging Radiology Impressions: ITS Impressions Soft Tissue Neck CT 03/05/22 19:20 IMPRESSION: Significant increase in size of a large mixed cystic and solid mass extending from the superficial and deep lobes of the posterior aspect of the left parotid gland into the left retroauricular soft tissues inferiorly and into the anterior margin of the left sternocleidomastoid muscle currently measuring up to 4.4 cm TV by 4.2 cm AP in size compared to 2.7 cm TV by 2.9 cm AP on the 10/03/[address] Recommend correlating with the previous biopsy results. Medications Medications Current Medications Acetaminophen (Acetaminophen 325 Mg Tablet) 650 mg PO Q6H PRN PRN Reason: Headache/Pain Mild Scale (1-3) Last Admin: 03/06/22 05:49 Dose: 650 mg Documented by: Al Hydroxide/Mg Hydroxide (Magnesium Hydrox/Alum Hydrox 30 Ml Oral.Susp) 30 ml PO Q6H PRN PRN Reason: Heartburn/Nausea Albuterol Sulfate (Albuterol Sulfate 90 Mcg 8 Gm Inhaler) 2 puff INHALE Q4H PRN PRN Reason: shortness of breath or wheezin Benzonatate (Benzonatate 100 Mg Capsule) 100 mg PO BID PRN PRN Reason: cough Benztropine Mesylate (Benztropine Mesylate 1 Mg Tablet) 1 mg PO BID [facility] Last Admin: 03/06/22 09:06 Dose: 1 mg Documented by: Clonidine HCl (Clonidine Hcl 0.2 Mg Tablet) 0.2 mg PO BEDTIME [facility]; Protocol Last Admin: 03/05/22 19:57 Dose: 0.2 mg Documented by: Cyanocobalamin (Cyanocobalamin (Vitamin B-12) 100 Mcg Tablet) 100 mcg PO DAILY [facility] Last Admin: 03/06/22 09:07 Dose: 100 mcg Documented by: Ferrous Sulfate (Ferrous Sulfate 324 Mg Tablet.Dr) 324 mg PO DAILY [facility] Last Admin: 03/06/22 09:07 Dose: 324 mg Documented by: Fluticasone/Vilanterol (Fluticasone/Vilanterol 200/25 Blst.W.Dev) 1 puff INHALE RDAILY [facility] Last Admin: 03/06/22 09:05 Dose: 1 puff Documented by: Gabapentin (Gabapentin 400 Mg Capsule) 400 mg PO TID [facility] Last Admin: 03/06/22 14:27 Dose: 400 mg Documented by: Hydroxyzine HCl (Hydroxyzine Hcl 25 Mg Tablet) 25 mg PO QID PRN PRN Reason: Anxiety Last Admin: 03/06/22 11:25 Dose: 25 mg Documented by: Ibuprofen (Ibuprofen 800 Mg Tablet) 800 mg PO Q8H PRN PRN Reason: Pain, Mild (Pain Scale 1-3) Last Admin: 03/05/22 09:37 Dose: 800 mg Documented by: Secretary Carbonate (Secretary Carbonate 300 Mg Capsule) 600 mg PO BID [facility] Last Admin: 03/06/22 09:07 Dose: 600 mg Documented by: Magnesium Hydroxide (Milk Of Magnesia 30 Ml Oral.Susp) 30 ml PO DAILY PRN PRN Reason: Constipation Mirtazapine (Mirtazapine 15 Mg Tablet) 15 mg PO BEDTIME [facility] Last Admin: 03/05/22 19:58 Dose: 15 mg Documented by: Nicotine (Nicotine 21 Mg Patch.Td24) 21 mg TRANSDERMA DAILY PRN PRN Reason: nicotine cravings Nicotine Polacrilex (Nicotine Polacrilex 2 Mg Gum) 4 mg BUCCAL Q2H PRN PRN Reason: Nicotine Cravings Olanzapine (Olanzapine 10 Mg Tablet) 10 mg PO BEDTIME [facility] Last Admin: 03/05/22 19:57 Dose: 10 mg Documented by: Omeprazole (Omeprazole 20 Mg Capsule.Dr) 20 mg PO DAILY@0630 [facility] Last Admin: 03/06/22 05:49 Dose: 20 mg Documented by: Oxcarbazepine (Oxcarbazepine 150 Mg Tablet) 150 mg PO BID [facility] Last Admin: 03/06/22 09:07 Dose: 150 mg Documented by: Prednisone (Prednisone 20 Mg Tablet) 60 mg PO DAILY [facility] Last Admin: 03/06/22 09:07 Dose: 60 mg Documented by: Ropinirole HCl (Ropinirole Hcl 1 Mg Tablet) 1 mg PO BEDTIME [facility] Last Admin: 03/05/22 19:57 Dose: 1 mg Documented by: Sertraline HCl (Sertraline Hcl 50 Mg Tablet) 50 mg PO DAILY [facility] Last Admin: 03/06/22 09:07 Dose: 50 mg Documented by: Tiotropium Polo (Tiotropium Polo 18 Mcg Cap.W.Dev) 1 puff INHALE RDAILY [facility] Last Admin: 03/06/22 09:05 Dose: 1 puff Documented by: Trazodone HCl (Trazodone Hcl 100 Mg Tablet) 200 mg PO BEDTIME [facility] Last Admin: 03/05/22 19:57 Dose: 200 mg Documented by: Valacyclovir HCl (Valacyclovir Hcl 1,000 Mg Tablet) 1,000 mg PO BID [facility] Last Admin: 03/06/22 09:07 Dose: 1,000 mg Documented by: Vitamin D (Cholecalciferol (Vitamin D3) 25 Mcg Tablet) 25 mcg PO DAILY [facility] Last Admin: 03/06/22 09:07 Dose: 25 mcg Documented by: Allergies Allergies Allergy/AdvReac Type Severity Reaction Status Date / Time aspirin [Aspirin] Allergy Severe HIVES,THROAT Verified 10/13/21 04:51 SWELLS bee pollen [BEE STINGS] Allergy Severe ANAPHYLAXIS Verified 10/13/21 04:51 diphenhydramine Allergy Severe hives, Verified 10/13/21 04:51 [From BENADRYL ALLERGY] throat swells Penicillins [PCN] Allergy Severe HIVES Verified 10/13/21 04:51 THROAT SWELLS Sulfa (Sulfonamide Allergy Intermediate HIVES Verified 10/13/21 04:51 Antibiotics) [SULFA (SULFONAMIDE ANTIBIOTICS)] tramadol [TRAMADOL] Allergy Intermediate ITCHING Verified 10/13/21 04:51 latex [LATEX] Allergy Unknown UNKNOWN Verified 10/13/21 04:51 penicillin G Allergy Unknown Unknown Verified 10/13/21 04:51 levofloxacin [From Levaquin] Allergy Hives Verified 10/13/21 04:51 hydroxyzine AdvReac Severe restless Verified 01/27/22 19:57 legs bee stings Allergy Unknown Unknown Uncoded 10/13/21 04:51 DairyCare Allergy Unknown Unknown Uncoded 10/13/21 04:51 sulfa drugs Allergy Unknown Unknown Uncoded 10/13/21 04:51 Assessment & Plan Assessment & Plan (1) PTSD (post-traumatic stress disorder): Status: Acute Code(s): F43.10 - Post-traumatic stress disorder, unspecified (2) Bipolar disorder: Status: Acute Code(s): F31.9 - Bipolar disorder, unspecified (3) Cocaine use disorder: Status: Acute Code(s): F14.10 - Cocaine abuse, uncomplicated Plan 52 yo female, transfer from [facility] with SI, plan and command hallucinations. Hx of bipolar disorder, PTSD, substance use (cocaine) and increasing medical problems. 5/7 continue current treatment plan Plan: 1. Labs- Secretary, K, TSH, FT4, B12,Folate 2. Re-establish regime 3. Pain mgt-fibromyalgia, hip pain 4. Pt agrees at this time to her social contact worker's suggestion of a rest home. Will pursue with the team. 5. Addictions work 6. Benztropine, Breo Inhaler restarted. 7. start remeron 7.5 mg QHS for sleep onset I spent minutes with the patient and/or on the patient floor today, greater than?50% of which was spent counseling/coordinating care. Patient educated on: medical condition Informed Consent: understands Reason for contiued inpatient stay Substantial Risk for: rapid decompensation
[2022-03-06] MEDS: Benzonatate 100 MG CAPSULE PO (16:41)
[2022-03-06 18:38] VITALS: BP 128/65; PULSE 90; TEMP 36.9; O2SAT 94
[2022-03-06] MEDS: cloNIDine HCL 0.2 MG TABLET PO (22:00)
[2022-03-06] MEDS: OLANZapine 10 MG TABLET PO (22:00)
[2022-03-06] MEDS: Mirtazapine 15 MG TABLET PO (22:00)
[2022-03-06] MEDS: traZODone HCL 100 MG TABLET 200 MG PO (22:01)
[2022-03-06] MEDS: rOPINIRole HCL 1 MG TABLET PO (22:01)
[2022-03-06] MEDS: Ibuprofen 800 MG TABLET PO (22:04)
[2022-03-07] MEDS: Omeprazole 20 MG CAPSULE.DR PO (07:00)
[2022-03-07 08:06] VITALS: BP 107/57; PULSE 70; TEMP 36.9; O2SAT 93
[2022-03-07] MEDS: predniSONE 20 MG TABLET 60 MG PO (08:37)
[2022-03-07] MEDS: Fluticasone/Vilanterol 200/25 BLST.W.DEV 1 PUFF INHALE (08:37)
[2022-03-07] MEDS: Ferrous Sulfate 324 MG TABLET.DR PO (08:38)
[2022-03-07] MEDS: OXcarbazepine 150 MG TABLET PO ×2 (08:38→20:55)
[2022-03-07] MEDS: Cholecalciferol (Vitamin D3) 25 MCG TABLET PO (08:38)
[2022-03-07] MEDS: Benztropine Mesylate 1 MG TABLET PO ×2 (08:38→20:54)
[2022-03-07] MEDS: Sertraline HCL 50 MG TABLET PO (08:38)
[2022-03-07] MEDS: valACYclovir HCL 1,000 MG TABLET 1000 MG PO ×2 (08:38→20:56)
[2022-03-07] MEDS: Lithium Carbonate 300 MG CAPSULE 600 MG PO ×2 (08:38→20:54)
[2022-03-07] MEDS: Gabapentin 400 MG CAPSULE PO ×3 (08:38→20:55)
[2022-03-07] MEDS: Acetaminophen 325 MG TABLET 650 MG PO ×2 (08:38→14:09)
[2022-03-07] MEDS: Cyanocobalamin (Vitamin B-12) 100 MCG TABLET PO (08:39)
[2022-03-07] MEDS: Ibuprofen 800 MG TABLET PO (16:23)
[2022-03-07 18:00] VITALS: BP 126/81; PULSE 84; RESP 20; TEMP 37; O2SAT 93
--- NOTE | 2022-03-07 18:39 | HO.PSYCHPN ---
Subjective Subjective Date of Service: 03/07/22 Reason For Visit: acute psychosis Interim History: Depressed and says she is so-so No SI Patient feels uncomfortable with her roommate saying that her roommate watches her while she sleeps and would like a room change. However patient says she is able to remain in good behavioral and impulse control and is just making the request but that she will tolerate it either way. Mental Status Exam Mental Status Exam Narrative: Patient Appearance:?Appropriate Patient Orientation:?Person, Place, Time and Situation Level of Consciousness:?Alert Patient Behavior:?calm and Good Eye Contact Mood Description:? so-so Affect Description:?constricted Patient Cognition Impaired:?No Ability to Follow Directions:?Good Speech Pattern:?Spontaneous Speech Memory Description:?Intact Hallucinations:?Auditory Delusions:?Paranoid Ideation Perceptual Disturbances:?Depersonalization and Derealization Thought Process:?Rumination Thought Content:?? denies SI or HI Depressive Symptoms:?Increased Anxiety, Insomnia, Diff. Making Decisions, Difficulty Sleeping and Thoughts of /Suicide Judgement:?Fair Diagnostics Vital Signs (24Hr): Vital Signs - 24 hr 03/07/22 08:06 Temperature 98.4 F Pulse Rate 70 Blood Pressure 107/57 L Pulse Oximetry 93 BMI result Body Mass Index 44.9 Labs Results: 03/04/22 08:27 Imaging Radiology Impressions: ITS Impressions Soft Tissue Neck CT 03/05/22 19:20 IMPRESSION: Significant increase in size of a large mixed cystic and solid mass extending from the superficial and deep lobes of the posterior aspect of the left parotid gland into the left retroauricular soft tissues inferiorly and into the anterior margin of the left sternocleidomastoid muscle currently measuring up to 4.4 cm TV by 4.2 cm AP in size compared to 2.7 cm TV by 2.9 cm AP on the 10/03/[address] Recommend correlating with the previous biopsy results. Medications Medications Current Medications Acetaminophen (Acetaminophen 325 Mg Tablet) 650 mg PO Q6H PRN PRN Reason: Headache/Pain Mild Scale (1-3) Last Admin: 03/07/22 14:09 Dose: 650 mg Documented by: Al Hydroxide/Mg Hydroxide (Magnesium Hydrox/Alum Hydrox 30 Ml Oral.Susp) 30 ml PO Q6H PRN PRN Reason: Heartburn/Nausea Albuterol Sulfate (Albuterol Sulfate 90 Mcg 8 Gm Inhaler) 2 puff INHALE Q4H PRN PRN Reason: shortness of breath or wheezin Last Admin: 03/06/22 16:37 Dose: 2 puff Documented by: Benzonatate (Benzonatate 100 Mg Capsule) 100 mg PO BID PRN PRN Reason: cough Last Admin: 03/06/22 16:41 Dose: 100 mg Documented by: Benztropine Mesylate (Benztropine Mesylate 1 Mg Tablet) 1 mg PO BID [facility] Last Admin: 03/07/22 08:38 Dose: 1 mg Documented by: Clonidine HCl (Clonidine Hcl 0.2 Mg Tablet) 0.2 mg PO BEDTIME [facility]; Protocol Last Admin: 03/06/22 22:00 Dose: 0.2 mg Documented by: Cyanocobalamin (Cyanocobalamin (Vitamin B-12) 100 Mcg Tablet) 100 mcg PO DAILY [facility] Last Admin: 03/07/22 08:39 Dose: 100 mcg Documented by: Ferrous Sulfate (Ferrous Sulfate 324 Mg Tablet.) 324 mg PO DAILY [facility] Last Admin: 03/07/22 08:38 Dose: 324 mg Documented by: Fluticasone/Vilanterol (Fluticasone/Vilanterol 200/25 Blst.W.Dev) 1 puff INHALE RDAILY [facility] Last Admin: 03/07/22 08:37 Dose: 1 puff Documented by: Gabapentin (Gabapentin 400 Mg Capsule) 400 mg PO TID [facility] Last Admin: 03/07/22 14:09 Dose: 400 mg Documented by: Hydroxyzine HCl (Hydroxyzine Hcl 25 Mg Tablet) 25 mg PO QID PRN PRN Reason: Anxiety Last Admin: 03/06/22 22:04 Dose: 25 mg Documented by: Ibuprofen (Ibuprofen 800 Mg Tablet) 800 mg PO Q8H PRN PRN Reason: Pain, Mild (Pain Scale 1-3) Last Admin: 03/07/22 16:23 Dose: 800 mg Documented by: [place] Carbonate ([place] Carbonate 300 Mg Capsule) 600 mg PO BID [facility] Last Admin: 03/07/22 08:38 Dose: 600 mg Documented by: Magnesium Hydroxide (Milk Of Magnesia 30 Ml Oral.Susp) 30 ml PO DAILY PRN PRN Reason: Constipation Mirtazapine (Mirtazapine 15 Mg Tablet) 15 mg PO BEDTIME [facility] Last Admin: 03/06/22 22:00 Dose: 15 mg Documented by: Nicotine (Nicotine 21 Mg Patch.Td24) 21 mg TRANSDERMA DAILY PRN PRN Reason: nicotine cravings Nicotine Polacrilex (Nicotine Polacrilex 2 Mg Gum) 4 mg BUCCAL Q2H PRN PRN Reason: Nicotine Cravings Olanzapine (Olanzapine 10 Mg Tablet) 10 mg PO BEDTIME [facility] Last Admin: 03/06/22 22:00 Dose: 10 mg Documented by: Omeprazole (Omeprazole 20 Mg Capsule.Dr) 20 mg PO DAILY@0630 [facility] Last Admin: 03/07/22 07:00 Dose: 20 mg Documented by: Oxcarbazepine (Oxcarbazepine 150 Mg Tablet) 150 mg PO BID [facility] Last Admin: 03/07/22 08:38 Dose: 150 mg Documented by: Prednisone (Prednisone 20 Mg Tablet) 60 mg PO DAILY [facility] Last Admin: 03/07/22 08:37 Dose: 60 mg Documented by: Ropinirole HCl (Ropinirole Hcl 1 Mg Tablet) 1 mg PO BEDTIME [facility] Last Admin: 03/06/22 22:01 Dose: 1 mg Documented by: Sertraline HCl (Sertraline Hcl 50 Mg Tablet) 50 mg PO DAILY [facility] Last Admin: 03/07/22 08:38 Dose: 50 mg Documented by: Tiotropium Godley (Tiotropium Godley 18 Mcg Cap.W.Dev) 1 puff INHALE RDAILY [facility] Last Admin: 03/07/22 08:37 Dose: 1 puff Documented by: Trazodone HCl (Trazodone Hcl 100 Mg Tablet) 200 mg PO BEDTIME [facility] Last Admin: 03/06/22 22:01 Dose: 200 mg Documented by: Valacyclovir HCl (Valacyclovir Hcl 1,000 Mg Tablet) 1,000 mg PO BID [facility] Last Admin: 03/07/22 08:38 Dose: 1,000 mg Documented by: Vitamin D (Cholecalciferol (Vitamin D3) 25 Mcg Tablet) 25 mcg PO DAILY [facility] Last Admin: 03/07/22 08:38 Dose: 25 mcg Documented by: Allergies Allergies Allergy/AdvReac Type Severity Reaction Status Date / Time aspirin [Aspirin] Allergy Severe HIVES,THROAT Verified 10/13/21 04:51 SWELLS bee pollen [BEE STINGS] Allergy Severe ANAPHYLAXIS Verified 10/13/21 04:51 diphenhydramine Allergy Severe hives, Verified 10/13/21 04:51 [From BENADRYL ALLERGY] throat swells Penicillins [PCN] Allergy Severe HIVES Verified 10/13/21 04:51 THROAT SWELLS Sulfa (Sulfonamide Allergy Intermediate HIVES Verified 10/13/21 04:51 Antibiotics) [SULFA (SULFONAMIDE ANTIBIOTICS)] tramadol [TRAMADOL] Allergy Intermediate ITCHING Verified 10/13/21 04:51 latex [LATEX] Allergy Unknown UNKNOWN Verified 10/13/21 04:51 penicillin G Allergy Unknown Unknown Verified 10/13/21 04:51 levofloxacin [From Levaquin] Allergy Hives Verified 10/13/21 04:51 hydroxyzine AdvReac Severe restless Verified 01/27/22 19:57 legs bee stings Allergy Unknown Unknown Uncoded 10/13/21 04:51 DairyCare Allergy Unknown Unknown Uncoded 10/13/21 04:51 sulfa drugs Allergy Unknown Unknown Uncoded 10/13/21 04:51 Assessment & Plan Assessment & Plan (1) PTSD (post-traumatic stress disorder): Status: Acute Code(s): F43.10 - Post-traumatic stress disorder, unspecified (2) Bipolar disorder: Status: Acute Code(s): F31.9 - Bipolar disorder, unspecified (3) Cocaine use disorder: Status: Acute Code(s): F14.10 - Cocaine abuse, uncomplicated Plan 52 yo female, transfer from [facility] with SI, plan and command hallucinations. Hx of bipolar disorder, PTSD, substance use (cocaine) and increasing medical problems. 03/06 continue current treatment plan 03/07 continue current treatment plan Plan: 1. Labs- [place], K, TSH, FT4, B12,Folate 2. Re-establish regime 3. Pain mgt-fibromyalgia, hip pain 4. Pt agrees at this time to her social services technician's suggestion of a rest home. Will pursue with the team. 5. Addictions work 6. Benztropine, Breo Inhaler restarted. 7. start remeron 7.5 mg QHS for sleep onset I spent minutes with the patient and/or on the patient floor today, greater than?50% of which was spent counseling/coordinating care. Reason for contiued inpatient stay Substantial Risk for: rapid decompensation
[2022-03-07] MEDS: cloNIDine HCL 0.2 MG TABLET PO (20:54)
[2022-03-07] MEDS: rOPINIRole HCL 1 MG TABLET PO (20:55)
[2022-03-07] MEDS: Mirtazapine 15 MG TABLET PO (20:55)
[2022-03-07] MEDS: OLANZapine 10 MG TABLET PO (20:55)
[2022-03-07] MEDS: traZODone HCL 100 MG TABLET 200 MG PO (20:55)
[2022-03-07] MEDS: hydrOXYzine HCL 25 MG TABLET PO (20:56)
[2022-03-08] MEDS: Omeprazole 20 MG CAPSULE.DR PO (06:32)
[2022-03-08] MEDS: Ibuprofen 800 MG TABLET PO (06:33)
[2022-03-08 08:00] VITALS: BP 111/68; PULSE 77; TEMP 36.6; O2SAT 96
[2022-03-08] MEDS: Fluticasone/Vilanterol 200/25 BLST.W.DEV 1 PUFF INHALE (08:40)
[2022-03-08] MEDS: Cholecalciferol (Vitamin D3) 25 MCG TABLET PO (08:41)
[2022-03-08] MEDS: Ferrous Sulfate 324 MG TABLET.DR PO (08:41)
[2022-03-08] MEDS: Albuterol Sulfate 90 MCG 8 GM INHALER 2 PUFF INHALE (08:41)
[2022-03-08] MEDS: Lithium Carbonate 300 MG CAPSULE 600 MG PO (08:41)
[2022-03-08] MEDS: Gabapentin 400 MG CAPSULE PO (08:41)
[2022-03-08] MEDS: Sertraline HCL 50 MG TABLET PO (08:41)
[2022-03-08] MEDS: Cyanocobalamin (Vitamin B-12) 100 MCG TABLET PO (08:42)
[2022-03-08] MEDS: valACYclovir HCL 1,000 MG TABLET 1000 MG PO (08:42)
[2022-03-08] MEDS: OXcarbazepine 150 MG TABLET PO (08:42)
[2022-03-08] MEDS: Benztropine Mesylate 1 MG TABLET PO (08:42)
[2022-03-08] MEDS: predniSONE 20 MG TABLET 60 MG PO (08:42)
[2022-03-08] MEDS: hydrOXYzine HCL 25 MG TABLET PO (10:42)
--- NOTE | 2022-03-08 11:39 | PC.NURSE ---
Patient was aware and ready for discharge. Paperwork reviewed with patient. Follow up appointment and Next dose medications explained to patient. Patient verbalized understanding. Patient was happy about the D/C, pleasant and cooperative with the process. Patient was accompanied with belongings to the front of the buildings per hospital policy.
--- NOTE | 2022-03-29 12:52 | P.DS_ITS ---
DS: Providers Provider Date of Service: 03/08/22 Date of admission: 03/02/22 21:02 Date of discharge: 03/08/22 Primary care physician: Unknown Physician Admitting clinician: Reina Lyle Attending physician on admission: Reina Lyle Consults: 03/02/22 21:55 Consult to Hospitalist Routine Consulting Provider: Hospitalist Reason For Exam: admission physical 03/05/22 11:09 Consult to General Surgery Routine Consulting Provider: Jeremy Ellsworth Reason for consultation: hx parotid tumor, cyst behind L ear, ?infection Has provider been notified: No 03/05/22 11:16 Consult to Pulmonology Routine Consulting Provider: Nehemiah Palmer Reason for consultation: COPD, Asthma, SOB Has provider been notified: No Attending physician on discharge: Reina Lyle Discharging clinician: Reina Lyle DS: Diagnosis Discharge Diagnosis (1) Bipolar disorder: Status: Acute (2) Cocaine use disorder: Status: Acute DS: Medications Discharge Medications Home Medications: Previous Rx's Medication Instructions Recorded albuterol sulfate 90 mcg/actuation 2 puff INHALATION Q4-6H PRN 30 03/23/22 aerosol inhaler Days #1 inhaler benztropine 1 mg tablet 1 mg PO BID 30 Days #60 tab 03/23/22 capsaicin 0.025 % topical cream 1 appl TOPICAL QID PRN 30 Days 03/23/22 #100 g cholecalciferol (vitamin D3) 25 25 mcg PO DAILY 30 Days #30 tab 03/23/22 mcg (1,000 unit) tablet clonidine HCl 0.2 mg tablet 0.2 mg PO BEDTIME 30 Days #30 tab 03/23/22 cyanocobalamin (vitamin B-12) 100 100 mcg PO DAILY 30 Days #30 tab 03/23/22 mcg tablet (Vitamin B-12) ferrous sulfate 324 mg (65 mg 324 mg PO DAILY 30 Days #30 tab 03/23/22 iron) tablet,delayed release fluticasone furoate 200 1 puff INHALATION RDAILY 30 Days 03/23/22 mcg-vilanterol 25 mcg/dose #1 ea inhalation powder (Breo Ellipta) gabapentin 400 mg capsule 400 mg PO TID 30 Days #90 cap 03/23/22 lithium carbonate 300 mg capsule 600 mg PO BID 30 Days #120 cap 03/23/22 olanzapine 10 mg tablet 10 mg PO BEDTIME 30 Days #30 tab 03/23/22 omeprazole 20 mg capsule,delayed 20 mg PO DAILY@0630 30 Days #30 cap 03/23/22 release oxcarbazepine 150 mg tablet 150 mg PO BID 30 Days #60 tab 03/23/22 ropinirole 0.5 mg tablet 0.5 mg PO BEDTIME 30 Days #30 tab 03/23/22 sertraline 50 mg tablet 50 mg PO DAILY 30 Days #30 tab 03/23/22 tiotropium bromide 18 mcg capsule 1 puff INHALATION RDAILY 30 Days 03/23/22 with inhalation device (Spiriva #1 inhaler with HandiHaler) trazodone 100 mg tablet 200 mg PO BEDTIME 30 Days #60 tab 03/23/22 valacyclovir 1 gram tablet 1,000 mg PO BID 30 Days #60 tab 03/23/22 Mental Status Exam Mental Status Exam Narrative: Patient Appearance:?Appropriate Patient Orientation:?Person, Place, Time and Situation Level of Consciousness:?Alert Patient Behavior:?Talkative and Good Eye Contact Mood Description:?Depressed and Anxious Affect Description:?Flat Patient Cognition Impaired:?No Ability to Follow Directions:?Good Speech Pattern:?Spontaneous Speech Memory Description:?Intact Hallucinations:?Auditory Delusions:?Paranoid Ideation Perceptual Disturbances:?Depersonalization and Derealization Thought Process:?Rumination Thought Content:? denies SI or HI Depressive Symptoms:?Increased Anxiety, Insomnia, Diff. Making Decisions, Difficulty Sleeping and Thoughts of /Suicide Judgement:?Fair Data Imaging Diagnostic Imaging Impressions Soft Tissue Neck CT 03/05/22 19:20 IMPRESSION: Significant increase in size of a large mixed cystic and solid mass extending from the superficial and deep lobes of the posterior aspect of the left parotid gland into the left retroauricular soft tissues inferiorly and into the anterior margin of the left sternocleidomastoid muscle currently measuring up to 4.4 cm TV by 4.2 cm AP in size compared to 2.7 cm TV by 2.9 cm AP on the 10/03/[address] Recommend correlating with the previous biopsy results. DS: Summary Hospital Course Hospital Course: Admission to adult psychiatry in transfer from [facility] for suicidal ideation with a plan to jump from a bridge, command hallucinations to suicide, relapse on cocaine, feeling pressure at her detention to stop medications and utilize recreational substances and an increase in medical symptoms due to lack of self care and follow up. Pt reported having stopped her medications and reporting an increase in fibromyalgia pain, RLS symptoms, right hip pain and an increase in size of her parotid mass. Medical consults obtained and out patient follow up planning made with Bhavana. By history, she will not follow up with these treatment suggestions. Pt reports having been compliant with CPAP at the detention and finds this helpful. Medication regime was re-established as by history it has been helpful per pt report. Pt recompensated with care, support and re- starting medications and asked to leave to return to community resources. Time spent discussing smoking cessation with patient: 3 to 10 minutes Status at Discharge Functional status at discharge: independent ambulation Overall status at discharge: patient is back to baseline Time Spent with Patient Time attestation: Total time spent providing and/or coordinating discharge services: 35 Time spent: Greater than 30 minutes Discharge Plan Discharge Patient Disposition: Home, Self-Care Discharge Diagnosis: Bipolar 1 disorder cocaine use disorder Referrals: [facility] [Other] - 1 Day (Patient declined appointments, and stated she would make appointments for self following discharge with her therapist and psychiatrist at [facility]. Therapist: Rosa Ponce MD: Dr Malvin Recinos.) Department of Mental Health [Other] - 1 Week (Patient would like to reopen se rodney with [facility] and has called per request of [facility] to reenroll. Please follow up with Mary Beth Ortiz to request restart of services per [facility]. ) Cori Hooker MD [Physician] - 03/22/22 1:00 pm (IN OFFICE) Discharge Medications: Discontinued gabapentin 100 mg capsule 300 mg PO TID 0RF No Action capsaicin 0.025 % Cream 1 appl topical QID PRN (Reason: leg pain) 30 Days Qty: 100 0RF Protocol: Apply to: Apply to: legs B/L oxcarbazepine 150 mg Tablet 150 mg PO BID 30 Days Qty: 60 0RF cyanocobalamin (vitamin B-12) [Vitamin B-12] 100 mcg Tablet 100 mcg PO DAILY 30 Days Qty: 30 0RF valacyclovir 1 gram Tablet 1,000 mg PO BID 30 Days Qty: 60 0RF gabapentin 400 mg Capsule 400 mg PO TID 30 Days Qty: 90 0RF olanzapine 10 mg Tablet 10 mg PO BEDTIME 30 Days Qty: 30 0RF clonidine HCl 0.2 mg Tablet 0.2 mg PO BEDTIME 30 Days Qty: 30 0RF Protocol: Hold for SBP< HOLD for SBP < : 90 trazodone 100 mg Tablet 200 mg PO BEDTIME 30 Days Qty: 60 0RF lithium carbonate 300 mg Capsule 600 mg PO BID 30 Days Qty: 120 0RF ropinirole 0.5 mg Tablet 0.5 mg PO BEDTIME 30 Days Qty: 30 0RF benztropine 1 mg Tablet 1 mg PO BID 30 Days Qty: 60 0RF omeprazole 20 mg Capsule,Delayed Release(Dr/Ec) 20 mg PO DAILY@0630 30 Days Qty: 30 0RF albuterol sulfate 90 mcg/actuation HFA aerosol inhaler 2 puff inhalation Q4-6H PRN (Reason: shortness of breath or wheezing) 30 Days Qty: 1 0RF sertraline 50 mg Tablet 50 mg PO DAILY 30 Days Qty: 30 0RF Spiriva with HandiHaler 18 mcg Capsule, W/Inhalation Device 1 puff inhalation RDAILY 30 Days Qty: 1 0RF cholecalciferol (vitamin D3) 25 mcg (1,000 unit) Tablet 25 mcg PO DAILY 30 Days Qty: 30 0RF ferrous sulfate 324 mg (65 mg iron) Tablet,Delayed Release (Dr/Ec) 324 mg PO DAILY 30 Days Qty: 30 0RF Breo Ellipta 200-25 mcg/dose Blister With Device 1 puff inhalation RDAILY 30 Days Qty: 1 0RF Discharge Orders: Discharge Order (Routine); Ordered 03/08/22 Ordered By: Ligia Cortez Diet: regular diet Activity on Discharge: As tolerated Stand Alone Forms: Patient Portal Discharge page, Community Support Care Plan Goals: 1. Maintain mood 2. No SI/HI 3. no psychosis 4. no signs of aggression towards self or others. Health Concerns: Follow up with PCP for routine care Plan of Treatment: 1. Take medications as prescribed. 2. Go to nearest ED or call 911 in event or emergency. Assessment: Pt with bright, non labile affect, although low frustration tolerance and tendency to explosive behaviors. No SI/HI. No signs of psychosis or delusional content. No signs of aggression towards self or others. Future oriented, in that she is looking forward to continue OP tx. Discharge Date/Time: 03/08/22 13:40
== END 2022-03-08 13:40 | disposition home or self-care (01) | DRG 753 ==
PROVIDERS: Admitting Provider Psychiatry & Neurology Psychiatry; Visit Provider Clinical Nurse Specialist Psychiatric/Mental Health, Adult
DX: F31.9 Bipolar disorder, unspecified (principal); R45.851 Suicidal ideations; F14.10 Cocaine abuse, uncomplicated; F43.10 Post-traumatic stress disorder, unspecified; F17.210 Nicotine dependence, cigarettes, uncomplicated; G47.33 Obstructive sleep apnea (adult) (pediatric); G25.81 Restless legs syndrome; K11.20 Sialoadenitis, unspecified; J44.9 Chronic obstructive pulmonary disease, unspecified; G62.9 Polyneuropathy, unspecified; Z71.6 Tobacco abuse counseling; Z88.0 Allergy status to penicillin; Z91.52 Personal history of nonsuicidal self-harm; Z88.2 Allergy status to sulfonamides; Z88.5 Allergy status to narcotic agent; Z88.8 Allergy status to other drugs, medicaments and biological substances; Z91.040 Latex allergy status; Z79.51 Long term (current) use of inhaled steroids; Z79.52 Long term (current) use of systemic steroids; Z79.899 Other long term (current) drug therapy
CPT/HCPCS: 36415; 70491; 80053; 80061; 80178; 82607; 82746; 84132; 84443; 93005; Q9967

== ENCOUNTER 2022-03-13 11:24 | Emergency (ER) | payer MEDICAID, SELFPAY ==
[2022-03-13 11:29] VITALS: BP 124/73; PULSE 91; RESP 18; TEMP 37.3; O2SAT 90; BMI 32.3
--- NOTE | 2022-03-13 11:55 | ED_ITS ---
HPI - Psych General Chief Complaint: Psychiatric Symptoms Stated Complaint: crisis Time Seen by Provider: 03/13/22 11:51 Source: patient and EMS Mode of arrival: EMS Limitations: no limitations History of Present Illness HPI Narrative: 52-year-old female with a past medical history significant for asthma, COPD, an xiety, depression, PTSD, bipolar 1 disorder, borderline personality disorder and obstructive sleep apnea presenting to the ED via EMS with complaints of increased anxiety / depression with SI thoughts plan to jump off a bridge. She reports that she does not have any resources and she is homeless and this is the main reason why she feels this way this is why she feels hopeless. Reports that she last used some drugs yesterday. Denies any alcohol usage. Reports that she is a daily smoker and smokes approximately 2 packs of cigarettes a day. She denies any fevers, chills, dizziness, headaches, neck pain / stiffness, trouble swallowing or breathing, chest pain or shortness of breath, dyspnea on exertion, orthopnea, sore throat, ear pain, loss of taste or smell, nausea/ vomiting/ diarrhea constipation, black or bloody stools, dysuria, hematuria, abnormal vaginal discharge, recent travel or sick contacts, rashes , auditory visual hallucinations or homicidal ideations or any other symptoms complaints or concerns at this time. MD complaint: suicidal ideation, feels depressed, anxiety and substance abuse Onset (ago): day(s) Duration: constant and getting worse History of same: Yes Relieving factors: none Exacerbating factors: other ( homeless does not have resources per patient) Context: recent drug abuse ( Reports she last used drugs yesterday) and significant life stressor ( homeless) Associated psychiatric symptoms: depression, suicidal ideation and racing thoughts Associated symptoms: denies other symptoms Treatments prior to arrival: none If self harm: admits thoughts of self harm and has plan ( to jump off bridge) Related Data Home Medications Medication Instructions Recorded Confirmed acetaminophen 325 mg tablet 975 mg PO TID PRN 03/13/22 03/13/22 Previous Rx's Medication Instructions Recorded albuterol sulfate 90 mcg/actuation 2 puff INHALATION Q4-6H PRN 30 10/29/21 aerosol inhaler Days #8.5 g valacyclovir 1 gram tablet 1,000 mg PO BID 30 Days #60 tab 10/29/21 cholecalciferol (vitamin D3) 25 25 mcg PO DAILY #30 tab 01/28/22 mcg (1,000 unit) tablet clonidine HCl 0.2 mg tablet 0.2 mg PO BEDTIME #30 tab 01/28/22 ferrous sulfate 324 mg (65 mg 324 mg PO DAILY #30 tab 01/28/22 iron) tablet,delayed release lithium carbonate 300 mg capsule 600 mg PO BID #120 cap 01/28/22 olanzapine 10 mg tablet 10 mg PO BEDTIME #30 tab 01/28/22 omeprazole 20 mg capsule,delayed 20 mg PO DAILY@0630 #30 cap 01/28/22 release oxcarbazepine 150 mg tablet 150 mg PO BID #60 tab 01/28/22 ropinirole 0.5 mg tablet 0.5 mg PO BEDTIME #30 tab 01/28/22 sertraline 50 mg tablet 50 mg PO DAILY #30 tab 01/28/22 trazodone 100 mg tablet 200 mg PO BEDTIME #60 tab 01/28/22 benzonatate 100 mg capsule 100 mg PO BID PRN #20 cap 02/23/22 prednisone 20 mg tablet 60 mg PO DAILY 5 Days #15 tab 02/23/22 benztropine 1 mg tablet 1 mg PO BID #0 tab 03/08/22 cyanocobalamin (vitamin B-12) 100 100 mcg PO DAILY #30 tab 03/08/22 mcg tablet (Vitamin B-12) fluticasone furoate 200 1 puff INHALATION RDAILY #0 ea 03/08/22 mcg-vilanterol 25 mcg/dose inhalation powder (Breo Ellipta) gabapentin 400 mg capsule 400 mg PO TID #0 cap 03/08/22 tiotropium bromide 18 mcg capsule 1 puff INHALATION RDAILY #0 03/08/22 with inhalation device (Spiriva with HandiHaler) Allergies Allergy/AdvReac Type Severity Reaction Status Date / Time aspirin [Aspirin] Allergy Severe HIVES,THROAT Verified 10/13/21 04:51 SWELLS bee pollen [BEE STINGS] Allergy Severe ANAPHYLAXIS Verified 10/13/21 04:51 diphenhydramine Allergy Severe hives, Verified 10/13/21 04:51 [From BENADRYL ALLERGY] throat swells Penicillins [PCN] Allergy Severe HIVES Verified 10/13/21 04:51 THROAT SWELLS Sulfa (Sulfonamide Allergy Intermediate HIVES Verified 10/13/21 04:51 Antibiotics) [SULFA (SULFONAMIDE ANTIBIOTICS)] tramadol [TRAMADOL] Allergy Intermediate ITCHING Verified 10/13/21 04:51 latex [LATEX] Allergy Unknown UNKNOWN Verified 10/13/21 04:51 penicillin G Allergy Unknown Unknown Verified 10/13/21 04:51 levofloxacin [From Levaquin] Allergy Hives Verified 10/13/21 04:51 hydroxyzine AdvReac Severe restless Verified 01/27/22 19:57 legs bee stings Allergy Unknown Unknown Uncoded 10/13/21 04:51 DairyCare Allergy Unknown Unknown Uncoded 10/13/21 04:51 sulfa drugs Allergy Unknown Unknown Uncoded 10/13/21 04:51 Review of Systems Review of Systems: Constitutional : No Fever, No Chills ENT/Mouth : No Ear Pain, No Nasal Congestion, No sore throat Eyes: No Eye Pain, No Swelling, No Redness Cardiovascular : No Chest Pain, No SOB Respiratory : No Cough, No Sputum, No Dyspnea Gastrointestinal : No ingestions, No Nausea, No Vomiting, No Diarrhea, No Hematochezia, No Melena Genitourinary : No Dysuria, No Urinary Frequency, No Hematuria Musculoskeletal : No Myalgias Skin : No Skin Lesions, No rash Neuro : No Weakness, No Numbness, No Paresthesias, No Dizziness, No Headache Psych : + Anxiety, + Depression, + SI, + thoughts of self injury, No HI, No AVH, Heme/Lymph: No Lymphadenopathy Endocrine : No Polyuria, No Polydipsia Yes all other systems are reviewed and are negative PMFSH Past Medical History Attestation statement: The following information was validated with the patient. Medical History Asthma exacerbation in COPD Bipolar disorder Bipolar I disorder Borderline personality disorder Borderline personality disorder COPD (chronic obstructive pulmonary disease) Depression Depression Drug abuse Herpes Intermittent explosive disorder Mass of parotid gland FABIOLA (obstructive sleep apnea) Parotid mass Post traumatic stress disorder (PTSD) PTSD (post-traumatic stress disorder) PTSD (post-traumatic stress disorder) Tobacco use Surgical History History of ankle surgery History of appendectomy History of back surgery Hx of cholecystectomy Family History Family History Mother COPD (chronic obstructive pulmonary disease) Social History Social History Household Members: Other Household Members Other:: [facility] [place] Housing: Homeless Housing Other:: will be getting apartment 07/01 Do you presently have visiting nurse or other home services: No Unable to assess alcohol history related to: Unknown Alcohol intake: never Patient Tobacco Use Status: Current everyday Tobacco user Tobacco use type: Cigarette Cigarette Packs Per Day: 1 Cigarettes Per Day: 20.0 Years Smoked: 38 e-Cigarette/Vaping Use: Currently Using Second Hand Smoke Exposure: Yes Substance Use Type: Crack/Cocaine Advance Directives: Yes Advance Directives on File: Yes Advance Directives Date on File: 12/24/20 Guardian: No Suicidal Behavior: Aborted suicide attempts Current/Past Psychiatric Disorders: Chronic mental illess, Mood disorder and Substance abuse Rizo Symptoms: Hopelessness and Worthlessness Access to Firearms: No service: No Current occupational status: unemployed and disabled Sexual orientation: Straight/Heterosexual Physical Exam Vital Signs: Vital Signs: Last Vital Signs Temp 99.1 F 03/13/22 11:29 Pulse 91 03/13/22 11:29 Resp 18 03/13/22 11:29 BP 124/73 03/13/22 11:29 Pulse Ox 90 L 03/13/22 11:29 BMI result Body Mass Index 32.3 vital signs have been reviewed as normal and appeared to be correct. Blood pressure normal. Heart rate normal. Respiration rate normal. Temperature 99.1. Oxygen saturation 90. Appearance: Alert. Oriented X3. No acute distress. Head: Normal external exam. Normocephalic. Atraumatic. Eyes: PERRLA. EOMI. Conjunctiva and sclera normal. Eyelids normal. ENT: EAC normal. TM's Normal. Pharynx normal. Uvula midline. Moist mucous membranes. No trismus noted. No drooling noted. No muffled voice noted. Neck: Normal inspection. Neck supple. FROM. No adenopathy. Thyroid Normal. No meningeal signs. No neck mass noted. CVS: Normal heart rate and rhythm. Heart sound normal. No murmurs noted. Pulses normal throughout. Respiratory: No respiratory distress. Painless inspiration. Breath sounds normal. No wheezes/rales/rhonchi noted. Chest nontender. No accessory muscle usage noted or decreased air movement noted. Abdomen: Soft and nontender. Bowel sounds normal in all 4 quadrants. No distention noted. No organomegaly noted. No visible injury noted. Back: No CVA tenderness. Full range of motion noted. Skin: Skin warm and dry. Normal skin color. Normal skin turgor. No rashes/lesions/lacerations noted. Extremities: No lower extremity edema. Extremities exhibit normal range of motion. Extremities nontender. Neuro: Oriented X 3. No motor deficit. No sensory deficit. Reflexes normal. CN's II-XII intact bilaterally? Psych: Appearance grossly normal, well-kept, mental status normal, speech and movement normal, speech clear, patient appears very sad and anxious along with depressed. Is cooperative. Course Course Course Narrative: 11:45am - 52-year-old female with a past medical history significant for asthma, COPD, anxiety, depression, PTSD, bipolar 1 disorder, borderline personality disorder and obstructive sleep apnea presenting to the ED via EMS with complaints of increased anxiety / depression with SI thoughts plan to jump off a bridge. She reports that she does not have any resources and she is homeless and this is the main reason why she feels this way this is why she feels hopeless. Reports that she last used some drugs yesterday. Denies any alcohol usage. Reports that she is a daily smoker and smokes approximately 2 packs of cigarettes a day. Plan: labs, UA, drugs of abuse screen, COVID swab and patient will need to be evaluated by crisis. Will continue to monitor until then. Reevaluation(s) Reevaluation #1: Labs reviewed and random glucose 123 otherwise all other labs are within normal limits. Patient positive for cocaine negative for all other drugs. Negative for EtOH. Negative for lithium level. Negative for COVID on 03/13/2022. Therefore patient medically cleared and she was evaluated by [facility] and patient will be in [facility] follow-up tomorrow morning. Will continue to monitor until then. [facility] - Psych Medical Records Attestation: I reviewed the patient's medical records. Lab Data Attestation: I reviewed the patient's lab results. Result diagrams: 03/13/22 13:42 03/13/22 13:42 Labs: Lab Results 03/13/22 03/13/22 03/13/22 Range/Units 11:45 11:45 13:41 WBC (4.8-10.8) X10*3/uL RBC (4.20-5.50) X10*6/uL Hgb (12.0-16.0) g/dl Hct (37.0-47.0) % MCV (80.0-98.0) fL MCH (27.0-33.0) pg MCHC (31.0-35.0) g/dl RDW (11.0-16.0) % Plt Count (160-400) X10*3/uL MPV (9.4-12.3) fL Immature Gran % (Auto) (0.0-0.4) % Neut % (Auto) (45-73) % Lymph % (Auto) (20-40) % Tucker % (Auto) (2-11) % Eos % (Auto) (0-4) % Baso % (Auto) (0-2) % Lymph # (Auto) (1.2-4.9) X10*3/uL Tucker # (Auto) (0.1-1.2) X10*3/uL Eos # (Auto) (0.0-0.4) X10*3/uL Baso # (Auto) (0.0-0.2) X10*3/uL Abs Immat Gran (auto) (0.00-0.03) X10*3/uL Absolute Neuts (auto) (2.0-8.3) x10*3/uL Absolute Nucleated RBC (0.0-0.012) X10*3/uL Nucleated RBC % (auto) (0.0-0.2) /100WBC Sodium (135-145) mmol/L Potassium (3.3-5.1) mmol/L Chloride (96-108) mmol/L Carbon Dioxide (22-29) mmol/L Anion Gap (12-20) BUN (9-16) mg/dL Creatinine (0.5-1.4) mg/dL Estim Creat Clear Calc Estimated GFR Random Glucose (60-115) mg/dL Calcium (8.4-10.2) mg/dL Magnesium (1.6-2.6) mg/dL Total Bilirubin (0.0-1.0) mg/dL AST (5-31) U/L ALT (0-31) U/L Alkaline Phosphatase (39-117) U/L Total Protein (6.5-8.0) g/dL Albumin (3.5-5.0) g/dL TSH 0.59 (0.32-4.0) uIU/mL Urine Opiates Screen Not Detected (Not Detect) Urine Fentanyl Screen Not Detected (Not Detect) Ur Barbiturates Screen Not Detected (Not Detect) Ur Phencyclidine Scrn Not Detected (Not Detect) Ur Amphetamines Screen Not Detected (Not Detect) U Benzodiazepines Scrn Not Detected (Not Detect) [place] (0.60-1.20) mmol/L Urine Cocaine Screen POSITIVE H (Not Detect) U Marijuana (THC) Screen Not Detected (Not Detect) Ethyl Alcohol mg/dL COVID-19 (ENDY) Negative (Negative) COVID-19 Clin Com See Note 03/13/22 03/13/22 03/13/22 Range/Units 13:42 13:42 13:42 WBC 6.7 (4.8-10.8) X10*3/uL RBC 4.34 (4.20-5.50) X10*6/uL Hgb 13.1 (12.0-16.0) g/dl Hct 41.2 (37.0-47.0) % MCV 94.9 (80.0-98.0) fL MCH 30.2 (27.0-33.0) pg MCHC 31.8 (31.0-35.0) g/dl RDW 13.3 (11.0-16.0) % Plt Count 315 (160-400) X10*3/uL MPV 9.5 (9.4-12.3) fL Immature Gran % (Auto) 0.4 (0.0-0.4) % Neut % (Auto) 57.7 (45-73) % Lymph % (Auto) 32.4 (20-40) % Tucker % (Auto) 7.0 (2-11) % Eos % (Auto) 1.8 (0-4) % Baso % (Auto) 0.7 (0-2) % Lymph # (Auto) 2.2 (1.2-4.9) X10*3/uL Tucker # (Auto) 0.5 (0.1-1.2) X10*3/uL Eos # (Auto) 0.1 (0.0-0.4) X10*3/uL Baso # (Auto) 0.1 (0.0-0.2) X10*3/uL Abs Immat Gran (auto) 0.03 (0.00-0.03) X10*3/uL Absolute Neuts (auto) 3.9 (2.0-8.3) x10*3/uL Absolute Nucleated RBC 0.000 (0.0-0.012) X10*3/uL Nucleated RBC % (auto) 0.0 (0.0-0.2) /100WBC Sodium 140 (135-145) mmol/L Potassium 3.9 (3.3-5.1) mmol/L Chloride 106 (96-108) mmol/L Carbon Dioxide 25 (22-29) mmol/L Anion Gap 13 (12-20) BUN 15 (9-16) mg/dL Creatinine 0.74 (0.5-1.4) mg/dL Estim Creat Clear Calc 102.0 Estimated GFR > 60 Random Glucose 123 H (60-115) mg/dL Calcium 9.2 D (8.4-10.2) mg/dL Magnesium 2.0 (1.6-2.6) mg/dL Total Bilirubin 0.4 (0.0-1.0) mg/dL AST 13 D (5-31) U/L ALT 21 (0-31) U/L Alkaline Phosphatase 65 (39-117) U/L Total Protein 6.3 L (6.5-8.0) g/dL Albumin 4.1 (3.5-5.0) g/dL TSH (0.32-4.0) uIU/mL Urine Opiates Screen (Not Detect) Urine Fentanyl Screen (Not Detect) Ur Barbiturates Screen (Not Detect) Ur Phencyclidine Scrn (Not Detect) Ur Amphetamines Screen (Not Detect) U Benzodiazepines Scrn (Not Detect) [place] (0.60-1.20) mmol/L Urine Cocaine Screen (Not Detect) U Marijuana (THC) Screen (Not Detect) Ethyl Alcohol < 10 mg/dL COVID-19 (ENDY) (Negative) COVID-19 Clin Com 03/13/22 Range/Units 13:42 WBC (4.8-10.8) X10*3/uL RBC (4.20-5.50) X10*6/uL Hgb (12.0-16.0) g/dl Hct (37.0-47.0) % MCV (80.0-98.0) fL MCH (27.0-33.0) pg MCHC (31.0-35.0) g/dl RDW (11.0-16.0) % Plt Count (160-400) X10*3/uL MPV (9.4-12.3) fL Immature Gran % (Auto) (0.0-0.4) % Neut % (Auto) (45-73) % Lymph % (Auto) (20-40) % Tucker % (Auto) (2-11) % Eos % (Auto) (0-4) % Baso % (Auto) (0-2) % Lymph # (Auto) (1.2-4.9) X10*3/uL Tucker # (Auto) (0.1-1.2) X10*3/uL Eos # (Auto) (0.0-0.4) X10*3/uL Baso # (Auto) (0.0-0.2) X10*3/uL Abs Immat Gran (auto) (0.00-0.03) X10*3/uL Absolute Neuts (auto) (2.0-8.3) x10*3/uL Absolute Nucleated RBC (0.0-0.012) X10*3/uL Nucleated RBC % (auto) (0.0-0.2) /100WBC Sodium (135-145) mmol/L Potassium (3.3-5.1) mmol/L Chloride (96-108) mmol/L Carbon Dioxide (22-29) mmol/L Anion Gap (12-20) BUN (9-16) mg/dL Creatinine (0.5-1.4) mg/dL Estim Creat Clear Calc Estimated GFR Random Glucose (60-115) mg/dL Calcium (8.4-10.2) mg/dL Magnesium (1.6-2.6) mg/dL Total Bilirubin (0.0-1.0) mg/dL AST (5-31) U/L ALT (0-31) U/L Alkaline Phosphatase (39-117) U/L Total Protein (6.5-8.0) g/dL Albumin (3.5-5.0) g/dL TSH (0.32-4.0) uIU/mL Urine Opiates Screen (Not Detect) Urine Fentanyl Screen (Not Detect) Ur Barbiturates Screen (Not Detect) Ur Phencyclidine Scrn (Not Detect) Ur Amphetamines Screen (Not Detect) U Benzodiazepines Scrn (Not Detect) [place] < 0.10 L (0.60-1.20) mmol/L Urine Cocaine Screen (Not Detect) U Marijuana (THC) Screen (Not Detect) Ethyl Alcohol mg/dL COVID-19 (ENDY) (Negative) COVID-19 Clin Com Discharge Plan Discharge Clinical Impression: Acute anxiety, Bipolar 1 disorder, Chronic post-traumatic stress disorder (PTSD) Patient Disposition: Still a Patient Prescriptions: No Action valacyclovir 1 gram Tablet 1,000 mg PO BID 30 Days Qty: 60 0RF albuterol sulfate 90 mcg/actuation HFA aerosol inhaler 2 puff inhalation Q4-6H PRN (Reason: shortness of breath or wheezing) 30 Days Qty: 8.5 0RF oxcarbazepine 150 mg Tablet 150 mg PO BID Qty: 60 0RF olanzapine 10 mg Tablet 10 mg PO BEDTIME Qty: 30 0RF clonidine HCl 0.2 mg Tablet 0.2 mg PO BEDTIME Qty: 30 0RF Protocol: Hold for SBP< HOLD for SBP < : 90 trazodone 100 mg Tablet 200 mg PO BEDTIME Qty: 60 0RF lithium carbonate 300 mg Capsule 600 mg PO BID Qty: 120 0RF ropinirole 0.5 mg Tablet 0.5 mg PO BEDTIME Qty: 30 0RF omeprazole 20 mg Capsule,Delayed Release(Dr/Ec) 20 mg PO DAILY@0630 Qty: 30 0RF sertraline 50 mg Tablet 50 mg PO DAILY Qty: 30 0RF cholecalciferol (vitamin D3) 25 mcg (1,000 unit) Tablet 25 mcg PO DAILY Qty: 30 0RF ferrous sulfate 324 mg (65 mg iron) Tablet,Delayed Release (Dr/Ec) 324 mg PO DAILY Qty: 30 0RF benzonatate 100 mg capsule 100 mg PO BID PRN (Reason: cough) Qty: 20 0RF prednisone 20 mg tablet 60 mg PO DAILY 5 Days Qty: 15 0RF cyanocobalamin (vitamin B-12) [Vitamin B-12] 100 mcg Tablet 100 mcg PO DAILY Qty: 30 0RF gabapentin 400 mg Capsule 400 mg PO TID Qty: 0 0RF benztropine 1 mg Tablet 1 mg PO BID Qty: 0 0RF Spiriva with HandiHaler 18 mcg Capsule, W/Inhalation Device 1 puff inhalation RDAILY Qty: 0 0RF Breo Ellipta 200-25 mcg/dose Blister With Device 1 puff inhalation RDAILY Qty: 0 0RF acetaminophen 325 mg Tablet 975 mg PO TID PRN (Reason: Pain) 0RF
[2022-03-13 12:06] LABS: Amphetamine Screen Urine Not Detected (Not Detect); Barbiturates, Urine Not Detected (Not Detect); Benzodiazepines Screen Urine Not Detected (Not Detect); Cannabinoid Screen Urine Not Detected (Not Detect); Cocaine Screen Urine POSITIVE (Not Detect); Fentanyl, urine Not Detected (Not Detect); Opiate Screen Urine Not Detected (Not Detect); Phencyclidine Screen Urine Not Detected (Not Detect)
[2022-03-13 12:08] LABS: COVID-19 Test Negative (Negative); IDNOW Serial# 16C4AD1C
--- NOTE | 2022-03-13 12:11 | PC.NURSE ---
Patient referred to crisis
[2022-03-13 13:46] LABS: MANUAL DIFF FLAG NO
[2022-03-13 13:50] LABS: Basophils Absolute Auto 0.1 X10*3/uL (0.0-0.2); Basophils Percent Auto 0.7 % (0-2); Eosinophils Absolute Auto 0.1 X10*3/uL (0.0-0.4); Eosinophils Percent Auto 1.8 % (0-4); Hematocrit 41.2 % (37.0-47.0); Hemoglobin 13.1 g/dl (12.0-16.0); Imm Gran Abs Auto 0.03 X10*3/uL (0.00-0.03); Imm Gran Pct Auto 0.4 % (0.0-0.4); Lymphocytes Absolute Auto 2.2 X10*3/uL (1.2-4.9); Lymphocytes Percent Auto 32.4 % (20-40); Mean Corpuscular HGB Conc 31.8 g/dl (31.0-35.0); Mean Corpuscular Hemoglobin 30.2 pg (27.0-33.0); Mean Corpuscular Volume 94.9 fL (80.0-98.0); Mean Platelet Volume 9.5 fL (9.4-12.3); Monocytes Absolute Auto 0.5 X10*3/uL (0.1-1.2); Neutrophils Absolute Auto 3.9 x10*3/uL (2.0-8.3); Neutrophils Percent Auto 57.7 % (45-73); Platelet Count 315 X10*3/uL (160-400); Red Blood Count 4.34 X10*6/uL (4.20-5.50); Red Cell Distribution Width 13.3 % (11.0-16.0); White Blood Count 6.7 X10*3/uL (4.8-10.8)
[2022-03-13 14:00] LABS: Lithium < 0.10 mmol/L (0.60-1.20)
[2022-03-13 14:03] LABS: Ethanol < 10 mg/dL
[2022-03-13 14:06] LABS: Alanine Aminotransferase 21 U/L (0-31); Albumin Level 4.1 g/dL (3.5-5.0); Alkaline Phosphatase 65 U/L (39-117); Anion Gap 13 (12-20); Aspartate Amino Transferase 13 U/L (5-31); Bilirubin Total 0.4 mg/dL (0.0-1.0); Blood Urea Nitrogen 15 mg/dL (9-16); Calcium 9.2 mg/dL (8.4-10.2); Carbon Dioxide 25 mmol/L (22-29); Chloride 106 mmol/L (96-108); Estimated Glomerular Filt Rate > 60; Glucose Random 123 mg/dL (60-115); Potassium 3.9 mmol/L (3.3-5.1); Sodium 140 mmol/L (135-145); Total Protein 6.3 g/dL (6.5-8.0)
[2022-03-13 14:26] LABS: TSH reflex Free T4 0.59 uIU/mL (0.32-4.0)
[2022-03-13] MEDS: Loperamide HCl 2 MG CAPSULE PO (15:29)
[2022-03-13] MEDS: Sertraline HCL 50 MG TABLET PO (17:59)
[2022-03-13] MEDS: Albuterol Sulfate 90 MCG 8 GM INHALER 2 PUFF INHALE (17:59)
[2022-03-13] MEDS: Cholecalciferol (Vitamin D3) 25 MCG TABLET PO (17:59)
[2022-03-13] MEDS: predniSONE 20 MG TABLET 60 MG PO (17:59)
[2022-03-13] MEDS: Cyanocobalamin (Vitamin B-12) 100 MCG TABLET PO (17:59)
[2022-03-13] MEDS: Ferrous Sulfate 324 MG TABLET.DR PO (17:59)
[2022-03-13] MEDS: rOPINIRole HCL 0.5 MG TABLET PO (20:47)
[2022-03-13] MEDS: OLANZapine 10 MG TABLET PO (20:47)
[2022-03-13] MEDS: OXcarbazepine 150 MG TABLET PO (20:47)
[2022-03-13] MEDS: valACYclovir HCL 1,000 MG TABLET 1000 MG PO (20:47)
[2022-03-13] MEDS: Lithium Carbonate 300 MG CAPSULE 600 MG PO (20:47)
[2022-03-13] MEDS: traZODone HCL 100 MG TABLET 200 MG PO (20:47)
[2022-03-13] MEDS: Benztropine Mesylate 1 MG TABLET PO (20:47)
[2022-03-13] MEDS: Gabapentin 400 MG CAPSULE PO (20:47)
[2022-03-13] MEDS: cloNIDine HCL 0.2 MG TABLET PO (20:47)
--- NOTE | 2022-03-14 04:56 | PC.NURSE ---
Patient slept through the night, no distress observed/reported, behavior appropriate and non concerning at this time, medication compliant, contracted for the safety, care team pending disposition/sixto f/u, VSS, will continue to monitor.
[2022-03-14] MEDS: Omeprazole 20 MG CAPSULE.DR PO (05:59)
[2022-03-14] MEDS: valACYclovir HCL 1,000 MG TABLET 1000 MG PO (07:32)
[2022-03-14] MEDS: Ferrous Sulfate 324 MG TABLET.DR PO (07:32)
[2022-03-14] MEDS: OXcarbazepine 150 MG TABLET PO (07:32)
[2022-03-14] MEDS: Gabapentin 400 MG CAPSULE PO (07:32)
[2022-03-14] MEDS: predniSONE 20 MG TABLET 60 MG PO (07:32)
[2022-03-14] MEDS: Benztropine Mesylate 1 MG TABLET PO (07:33)
[2022-03-14] MEDS: Sertraline HCL 50 MG TABLET PO (07:33)
[2022-03-14] MEDS: Cyanocobalamin (Vitamin B-12) 100 MCG TABLET PO (07:33)
[2022-03-14] MEDS: Lithium Carbonate 300 MG CAPSULE 600 MG PO (07:33)
[2022-03-14] MEDS: Cholecalciferol (Vitamin D3) 25 MCG TABLET PO (07:33)
[2022-03-14] MEDS: Albuterol Sulfate 90 MCG 8 GM INHALER 2 PUFF INHALE (07:41)
[2022-03-14] MEDS: Fluticasone/Vilanterol 200/25 BLST.W.DEV 1 PUFF INHALE (08:05)
--- NOTE | 2022-03-14 08:28 | PC.NURSE ---
PT HAS BEEN CALM AND COOPERATIVE THIS MORNING, TOLERATED PO, TOOK MEDICATIONS WITHOUT DIFFICULTY. STATES FEELING MUCH BETTER AND CURRENTLY DENIES AND THOUGHTS OF SI
[2022-03-14 08:54] VITALS: BP 120/68; PULSE 71; RESP 16; TEMP 36.8; O2SAT 94
--- NOTE | 2022-03-14 10:35 | PC.NURSE ---
PT BEING EVALUATED BY CARE TEAM
== END 2022-03-14 13:31 | disposition still patient (30) ==
PROVIDERS: Physician Assistant Medical; Emergency Provider Emergency Medicine; PCP Family Medicine
DX: F41.9 Anxiety disorder, unspecified (principal); F31.9 Bipolar disorder, unspecified; F43.12 Post-traumatic stress disorder, chronic; J44.9 Chronic obstructive pulmonary disease, unspecified; F17.210 Nicotine dependence, cigarettes, uncomplicated; Z59.02 Unsheltered homelessness; Z20.822 Contact with and (suspected) exposure to COVID-19
CPT/HCPCS: 36415; 80053; 80178; 80307; 82077; 83735; 84443; 85025; 87635; 99283; 99284

== ENCOUNTER 2022-03-17 10:00 | Inpatient (IN) | payer OTHER, SELFPAY ==
--- NOTE | 2022-03-17 | ECG_ITS ---
Test Reason : MEDICAL CLEARANCE Blood Pressure : / mmHG Vent. Rate : 079 BPM Atrial Rate : 079 BPM P-R Int : 130 ms QRS Dur : 086 ms QT Int : 388 ms P-R-T Axes : 000 044 041 degrees QTc Int : 444 ms Normal sinus rhythm Normal ECG When compared with ECG of 02-MAR-2022 22:34, No significant change was found Referred By: Chon Seals Electronically Signed By:ALEJANDRO MCCLELLAN
--- NOTE | ~2022-03-17 | US_ITS ---
PROCEDURE: ULTRASOUND-GUIDED LEFT PAROTID MASS BIOPSY CLINICAL INFORMATION: Left parotid mass. COMPARISON: Ultrasound soft tissue head and neck 03/19/2022. TECHNIQUE: Following explaining ultrasound-guided left parotid mixed attenuation mass biopsy procedure, benefits and risk, a written consent was obtained. Patient was placed in right decubitus view and preliminary ultrasound imaging was obtained through the left parotid gland. An optimal site was selected inferior and posterior to the left external auditory canal. The area was marked and cleaned and draped in usual sterile manner. 1% lidocaine was injected at puncture site. A 20-gauge fine-needle attached to syringe was then advanced through the marked site into the solid area x3. The fourth needle was advanced into the cystic area and physically drained with a suction bottle. The size of the lesion decreased following aspiration of fluid. Postprocedure complete hemostasis achieved at puncture site. Simple Band-Aid applied at the puncture site. Preliminary result revealed adequate salivary cells. FINDINGS: On ultrasound imaging there is a mixed cystic and solid mass in the left parotid gland. The solid component is very heterogeneous and irregular lobulated surrounded by anechoic cyst. Fine-needle biopsy aspiration with 3 passes of the left parotid mass was performed of the solid component. A single pass aspiration of cystic component was performed as well. US/US biopsy parotid gland IMPRESSION: Patient tolerated procedure extremely well. Successful ultrasound-guided 4-pass aspiration biopsy of solid component and a cystic component was performed. Definite pathology results are pending.
--- NOTE | ~2022-03-17 | US_ITS ---
EXAMINATION: US SOFT TISSUE NECK CLINICAL INFORMATION: Left parotid swelling. COMPARISON: None TECHNIQUE: Limited ultrasound imaging of left parotid gland was performed. FINDINGS: There is a cystic and solid mass seen in the left retroauricular area adjacent to left parotid gland with internal vascularity measuring 3.9 x 4.1 x 2.4 cm. The findings are suspicious for a non-benign lesion. No adjacent lymph nodes seen. US/US soft tiss head and/or neck IMPRESSION: Mixed cystic and solid lesion left parotid gland suspicious for malignancy. Recommend further evaluation with MRI neck with attention to parotid gland or ultrasound-guided biopsy.
[2022-03-17 10:46] VITALS: BP 116/68; BP 147/63; PULSE 82; PULSE 84; RESP 16; TEMP 37; O2SAT 93; O2SAT 94; BMI 36.3
--- NOTE | 2022-03-17 10:52 | ED_ITS ---
HPI - Psych General Chief Complaint: Psychiatric Symptoms Stated Complaint: SI W/INTENT, SEC 12 BY [facility] Time Seen by Provider: 03/17/22 10:48 Source: patient Limitations: no limitations History of Present Illness HPI Narrative: this is a 52 years old with history of depression presented to the ED with complain of SI with a plan, she plan to jump off a bridge complaint: suicidal ideation Onset (ago): day(s) (1) Duration: constant Relieving factors: none Exacerbating factors: none Associated psychiatric symptoms: none Related Data Home Medications Medication Instructions Recorded Confirmed acetaminophen 325 mg tablet 975 mg PO TID PRN 03/13/22 03/13/22 Previous Rx's Medication Instructions Recorded albuterol sulfate 90 mcg/actuation 2 puff INHALATION Q4-6H PRN 30 10/29/21 aerosol inhaler Days #8.5 g valacyclovir 1 gram tablet 1,000 mg PO BID 30 Days #60 tab 10/29/21 cholecalciferol (vitamin D3) 25 25 mcg PO DAILY #30 tab 01/28/22 mcg (1,000 unit) tablet clonidine HCl 0.2 mg tablet 0.2 mg PO BEDTIME #30 tab 01/28/22 ferrous sulfate 324 mg (65 mg 324 mg PO DAILY #30 tab 01/28/22 iron) tablet,delayed release lithium carbonate 300 mg capsule 600 mg PO BID #120 cap 01/28/22 olanzapine 10 mg tablet 10 mg PO BEDTIME #30 tab 01/28/22 omeprazole 20 mg capsule,delayed 20 mg PO DAILY@0630 #30 cap 01/28/22 release oxcarbazepine 150 mg tablet 150 mg PO BID #60 tab 01/28/22 ropinirole 0.5 mg tablet 0.5 mg PO BEDTIME #30 tab 01/28/22 sertraline 50 mg tablet 50 mg PO DAILY #30 tab 01/28/22 trazodone 100 mg tablet 200 mg PO BEDTIME #60 tab 01/28/22 benzonatate 100 mg capsule 100 mg PO BID PRN #20 cap 02/23/22 prednisone 20 mg tablet 60 mg PO DAILY 5 Days #15 tab 02/23/22 benztropine 1 mg tablet 1 mg PO BID #0 tab 03/08/22 cyanocobalamin (vitamin B-12) 100 100 mcg PO DAILY #30 tab 05/09/22 mcg tablet (Vitamin B-12) fluticasone furoate 200 1 puff INHALATION RDAILY #0 ea 03/08/22 mcg-vilanterol 25 mcg/dose inhalation powder (Breo Ellipta) gabapentin 400 mg capsule 400 mg PO TID #0 cap 03/08/22 tiotropium bromide 18 mcg capsule 1 puff INHALATION RDAILY #0 03/08/22 with inhalation device (Spiriva with HandiHaler) Allergies Allergy/AdvReac Type Severity Reaction Status Date / Time aspirin [Aspirin] Allergy Severe HIVES,THROAT Verified 10/13/21 04:51 SWELLS bee pollen [BEE STINGS] Allergy Severe ANAPHYLAXIS Verified 10/13/21 04:51 diphenhydramine Allergy Severe hives, Verified 10/13/21 04:51 [From BENADRYL ALLERGY] throat swells Penicillins [PCN] Allergy Severe HIVES Verified 10/13/21 04:51 THROAT SWELLS Sulfa (Sulfonamide Allergy Intermediate HIVES Verified 10/13/21 04:51 Antibiotics) [SULFA (SULFONAMIDE ANTIBIOTICS)] tramadol [TRAMADOL] Allergy Intermediate ITCHING Verified 10/13/21 04:51 latex [LATEX] Allergy Unknown UNKNOWN Verified 10/13/21 04:51 penicillin G Allergy Unknown Unknown Verified 10/13/21 04:51 levofloxacin [From Levaquin] Allergy Hives Verified 10/13/21 04:51 hydroxyzine AdvReac Severe restless Verified 01/27/22 19:57 legs seafood AdvReac Stomach Verified 03/17/22 12:07 Upset bee stings Allergy Unknown Unknown Uncoded 10/13/21 04:51 DairyCare Allergy Unknown Unknown Uncoded 10/13/21 04:51 sulfa drugs Allergy Unknown Unknown Uncoded 10/13/21 04:51 Review of Systems Review of Systems: Yes Unobtainable due to mental status ENT: Reports system reviewed and no additional complaints, except as documented Cardiovascular: Cardiovascular: Denies dyspnea and Denies dyspnea on exertion Respiratory: Respiratory: Denies dyspnea and Denies dyspnea on exertion Neurologic: Reports system reviewed and no additional complaints, except as documented Psychiatric: Psychiatric: Reports as per [facility] Past Medical History Medical History Asthma exacerbation in COPD Bipolar disorder Bipolar I disorder Borderline personality disorder Borderline personality disorder COPD (chronic obstructive pulmonary disease) Depression Depression Drug abuse Herpes Intermittent explosive disorder Mass of parotid gland FABIOLA (obstructive sleep apnea) Parotid mass Post traumatic stress disorder (PTSD) PTSD (post-traumatic stress disorder) PTSD (post-traumatic stress disorder) Tobacco use Surgical History History of ankle surgery History of appendectomy History of back surgery Hx of cholecystectomy Family History Family History Mother COPD (chronic obstructive pulmonary disease) Social History Social History Household Members: Other Household Members Other:: [facility] [place] Housing: Homeless Housing Other:: will be getting apartment 07/01 Do you presently have visiting nurse or other home services: No Unable to assess alcohol history related to: Unknown Alcohol intake: never Patient Tobacco Use Status: Current everyday Tobacco user Tobacco use type: Cigarette Cigarette Packs Per Day: 1 Cigarettes Per Day: 20.0 Years Smoked: 38 e-Cigarette/Vaping Use: Currently Using Second Hand Smoke Exposure: Yes Substance Use Type: Crack/Cocaine Advance Directives: Yes Advance Directives on File: Yes Advance Directives Date on File: 12/24/20 service: No Current occupational status: unemployed and disabled Sexual orientation: Straight/Heterosexual Physical Exam Vital Signs: Vital Signs: Last Vital Signs Temp 98.6 F 03/17/22 10:46 Pulse 82 03/17/22 10:46 Resp 16 03/17/22 10:46 BP 116/68 03/17/22 10:46 Pulse Ox 93 03/17/22 10:46 BMI result Body Mass Index 36.3 Const: General: cooperative Orientation/consciousness: patient oriented x3 HEENT: Head: Yes normal to inspection General nose exam: Normal external nose present Face and sinus: Yes normal facial exam Mouth: Normal oral and palatal mucosa present Throat: Yes posterior oropharynx normal Neck: Neck: Yes normal visual inspection Resp: Effort & Inspection: normal respiratory effort Auscultation: clear to auscultation bilaterally Cardio: Jugular venous distension: no JVD Rate: regular rate Rhythm: re gular rhythm GI: Inspection: Yes normal to inspection Palpation (GI): Soft to palpation, not firm and nontender Skin: General skin exam: no rashes or lesions noted Neuro: General: patient oriented x3, no focal motor deficits and CN's II-XI intact bilaterally Cognition (Neuro): normal cognition Course Reevaluation(s) Reevaluation #1: we are waiting for crisis eval,Pt will be signed out to Dr Verma [facility] - Psych Lab Data Attestation: I reviewed the patient's lab results. Result diagrams: 03/17/22 12:09 03/17/22 12:09 Labs: Lab Results 03/17/22 03/17/22 03/17/22 Range/Units 12:08 12:09 12:09 WBC 7.4 (4.8-10.8) X10*3/uL RBC 4.52 (4.20-5.50) X10*6/uL Hgb 13.5 (12.0-16.0) g/dl Hct 42.2 (37.0-47.0) % MCV 93.4 (80.0-98.0) fL MCH 29.9 (27.0-33.0) pg MCHC 32.0 (31.0-35.0) g/dl RDW 13.2 (11.0-16.0) % Plt Count 312 (160-400) X10*3/uL MPV 9.8 (9.4-12.3) fL Immature Gran % (Auto) 0.4 (0.0-0.4) % Neut % (Auto) 63.5 (45-73) % Lymph % (Auto) 28.3 (20-40) % [place] % (Auto) 5.4 (2-11) % Eos % (Auto) 1.4 (0-4) % Baso % (Auto) 1.0 (0-2) % Lymph # (Auto) 2.1 (1.2-4.9) X10*3/uL [place] # (Auto) 0.4 (0.1-1.2) X10*3/uL Eos # (Auto) 0.1 (0.0-0.4) X10*3/uL Baso # (Auto) 0.1 (0.0-0.2) X10*3/uL Abs Immat Gran (auto) 0.03 (0.00-0.03) X10*3/uL Absolute Neuts (auto) 4.7 (2.0-8.3) x10*3/uL Absolute Nucleated RBC 0.000 (0.0-0.012) X10*3/uL Nucleated RBC % (auto) 0.0 (0.0-0.2) /100WBC Sodium 141 (135-145) mmol/L Potassium 4.1 (3.3-5.1) mmol/L Chloride 106 (96-108) mmol/L Carbon Dioxide 26 (22-29) mmol/L Anion Gap 13 (12-20) BUN 16 (9-16) mg/dL Creatinine 0.75 (0.5-1.4) mg/dL Estim Creat Clear Calc 106.9 Estimated GFR > 60 Random Glucose 137 H (60-115) mg/dL Calcium 9.6 (8.4-10.2) mg/dL Total Bilirubin 0.4 (0.0-1.0) mg/dL AST 11 (5-31) U/L ALT 17 (0-31) U/L Alkaline Phosphatase 71 (39-117) U/L Total Protein 6.9 (6.5-8.0) g/dL Albumin 4.4 (3.5-5.0) g/dL Urine Opiates Screen Not Detected (Not Detect) Urine Fentanyl Screen Not Detected (Not Detect) Ur Barbiturates Screen Not Detected (Not Detect) Ur Phencyclidine Scrn Not Detected (Not Detect) Ur Amphetamines Screen Not Detected (Not Detect) U Benzodiazepines Scrn Not Detected (Not Detect) Urine Cocaine Screen POSITIVE H (Not Detect) U Marijuana (THC) Screen Not Detected (Not Detect) COVID-19 (ENDY) (Negative) COVID-19 Clin Com 03/17/22 Range/Units 12:09 WBC (4.8-10.8) X10*3/uL RBC (4.20-5.50) X10*6/uL Hgb (12.0-16.0) g/dl Hct (37.0-47.0) % MCV (80.0-98.0) fL MCH (27.0-33.0) pg MCHC (31.0-35.0) g/dl RDW (11.0-16.0) % Plt Count (160-400) X10*3/uL MPV (9.4-12.3) fL Immature Gran % (Auto) (0.0-0.4) % Neut % (Auto) (45-73) % Lymph % (Auto) (20-40) % [place] % (Auto) (2-11) % Eos % (Auto) (0-4) % Baso % (Auto) (0-2) % Lymph # (Auto) (1.2-4.9) X10*3/uL [place] # (Auto) (0.1-1.2) X10*3/uL Eos # (Auto) (0.0-0.4) X10*3/uL Baso # (Auto) (0.0-0.2) X10*3/uL Abs Immat Gran (auto) (0.00-0.03) X10*3/uL Absolute Neuts (auto) (2.0-8.3) x10*3/uL Absolute Nucleated RBC (0.0-0.012) X10*3/uL Nucleated RBC % (auto) (0.0-0.2) /100WBC Sodium (135-145) mmol/L Potassium (3.3-5.1) mmol/L Chloride (96-108) mmol/L Carbon Dioxide (22-29) mmol/L Anion Gap (12-20) BUN (9-16) mg/dL Creatinine (0.5-1.4) mg/dL Estim Creat Clear Calc Estimated GFR Random Glucose (60-115) mg/dL Calcium (8.4-10.2) mg/dL Total Bilirubin (0.0-1.0) mg/dL AST (5-31) U/L ALT (0-31) U/L Alkaline Phosphatase (39-117) U/L Total Protein (6.5-8.0) g/dL Albumin (3.5-5.0) g/dL Urine Opiates Screen (Not Detect) Urine Fentanyl Screen (Not Detect) Ur Barbiturates Screen (Not Detect) Ur Phencyclidine Scrn (Not Detect) Ur Amphetamines Screen (Not Detect) U Benzodiazepines Scrn (Not Detect) Urine Cocaine Screen (Not Detect) U Marijuana (THC) Screen (Not Detect) COVID-19 (ENDY) Negative (Negative) COVID-19 Clin Com See Note Discharge Plan Discharge Clinical Impression: Acute depression Patient Disposition: Still a Patient Prescriptions: No Action valacyclovir 1 gram Tablet 1,000 mg PO BID 30 Days Qty: 60 0RF albuterol sulfate 90 mcg/actuation HFA aerosol inhaler 2 puff inhalation Q4-6H PRN (Reason: shortness of breath or wheezing) 30 Days Qty: 8.5 0RF oxcarbazepine 150 mg Tablet 150 mg PO BID Qty: 60 0RF olanzapine 10 mg Tablet 10 mg PO BEDTIME Qty: 30 0RF clonidine HCl 0.2 mg Tablet 0.2 mg PO BEDTIME Qty: 30 0RF Protocol: Hold for SBP< HOLD for SBP < : 90 trazodone 100 mg Tablet 200 mg PO BEDTIME Qty: 60 0RF lithium carbonate 300 mg Capsule 600 mg PO BID Qty: 120 0RF ropinirole 0.5 mg Tablet 0.5 mg PO BEDTIME Qty: 30 0RF omeprazole 20 mg Capsule,Delayed Release(Dr/Ec) 20 mg PO DAILY@0630 Qty: 30 0RF sertraline 50 mg Tablet 50 mg PO DAILY Qty: 30 0RF cholecalciferol (vitamin D3) 25 mcg (1,000 unit) Tablet 25 mcg PO DAILY Qty: 30 0RF ferrous sulfate 324 mg (65 mg iron) Tablet,Delayed Release (Dr/Ec) 324 mg PO DAILY Qty: 30 0RF benzonatate 100 mg capsule 100 mg PO BID PRN (Reason: cough) Qty: 20 0RF prednisone 20 mg tablet 60 mg PO DAILY 5 Days Qty: 15 0RF cyanocobalamin (vitamin B-12) [Vitamin B-12] 100 mcg Tablet 100 mcg PO DAILY Qty: 30 0RF gabapentin 400 mg Capsule 400 mg PO TID Qty: 0 0RF benztropine 1 mg Tablet 1 mg PO BID Qty: 0 0RF Spiriva with HandiHaler 18 mcg Capsule, W/Inhalation Device 1 puff inhalation RDAILY Qty: 0 0RF Breo Ellipta 200-25 mcg/dose Blister With Device 1 puff inhalation RDAILY Qty: 0 0RF acetaminophen 325 mg Tablet 975 mg PO TID PRN (Reason: Pain) 0RF
[2022-03-17 12:17] LABS: MANUAL DIFF FLAG NO
[2022-03-17 12:20] LABS: Basophils Absolute Auto 0.1 X10*3/uL (0.0-0.2); Eosinophils Absolute Auto 0.1 X10*3/uL (0.0-0.4); Eosinophils Percent Auto 1.4 % (0-4); Hematocrit 42.2 % (37.0-47.0); Hemoglobin 13.5 g/dl (12.0-16.0); Imm Gran Abs Auto 0.03 X10*3/uL (0.00-0.03); Imm Gran Pct Auto 0.4 % (0.0-0.4); Lymphocytes Absolute Auto 2.1 X10*3/uL (1.2-4.9); Lymphocytes Percent Auto 28.3 % (20-40); Mean Corpuscular Hemoglobin 29.9 pg (27.0-33.0); Mean Corpuscular Volume 93.4 fL (80.0-98.0); Mean Platelet Volume 9.8 fL (9.4-12.3); Monocytes Absolute Auto 0.4 X10*3/uL (0.1-1.2); Monocytes Percent Auto 5.4 % (2-11); Neutrophils Absolute Auto 4.7 x10*3/uL (2.0-8.3); Neutrophils Percent Auto 63.5 % (45-73); Platelet Count 312 X10*3/uL (160-400); Red Blood Count 4.52 X10*6/uL (4.20-5.50); Red Cell Distribution Width 13.2 % (11.0-16.0); White Blood Count 7.4 X10*3/uL (4.8-10.8)
[2022-03-17 12:43] LABS: Alanine Aminotransferase 17 U/L (0-31); Albumin Level 4.4 g/dL (3.5-5.0); Alkaline Phosphatase 71 U/L (39-117); Anion Gap 13 (12-20); Aspartate Amino Transferase 11 U/L (5-31); Bilirubin Total 0.4 mg/dL (0.0-1.0); Blood Urea Nitrogen 16 mg/dL (9-16); Calcium 9.6 mg/dL (8.4-10.2); Carbon Dioxide 26 mmol/L (22-29); Chloride 106 mmol/L (96-108); Creatinine Clr Calc Pharmacy 106.9; Estimated Glomerular Filt Rate > 60; Glucose Random 137 mg/dL (60-115); Potassium 4.1 mmol/L (3.3-5.1); Sodium 141 mmol/L (135-145); Total Protein 6.9 g/dL (6.5-8.0)
[2022-03-17 12:44] LABS: Amphetamine Screen Urine Not Detected (Not Detect); Barbiturates, Urine Not Detected (Not Detect); Benzodiazepines Screen Urine Not Detected (Not Detect); Cannabinoid Screen Urine Not Detected (Not Detect); Cocaine Screen Urine POSITIVE (Not Detect); Fentanyl, urine Not Detected (Not Detect); Opiate Screen Urine Not Detected (Not Detect); Phencyclidine Screen Urine Not Detected (Not Detect)
[2022-03-17 12:44] LABS: COVID-19 Test Negative (Negative); IDNOW Serial# 55D5AD1C
[2022-03-17] MEDS: hydrOXYzine HCL 25 MG TABLET PO (13:30)
[2022-03-17] MEDS: Ondansetron ODT 4 MG TAB.RAPDIS TRANSLINGU (14:39)
[2022-03-17 17:40] VITALS: BP 149/95; PULSE 76; RESP 20; TEMP 36.7; O2SAT 94
[2022-03-18 00:12] VITALS: BP 121/77; PULSE 73; RESP 20; TEMP 36.4; O2SAT 92
[2022-03-18] MEDS: traZODone HCL 100 MG TABLET 200 MG PO ×2 (01:05→21:14)
[2022-03-18] MEDS: cloNIDine HCL 0.2 MG TABLET PO ×2 (01:05→21:14)
[2022-03-18] MEDS: Benztropine Mesylate 1 MG TABLET PO ×3 (01:06→21:14)
[2022-03-18] MEDS: Gabapentin 400 MG CAPSULE PO ×4 (01:06→21:14)
[2022-03-18] MEDS: Lithium Carbonate 300 MG CAPSULE 600 MG PO ×3 (01:06→21:14)
[2022-03-18] MEDS: hydrOXYzine HCL 50 MG TABLET PO (01:06)
[2022-03-18] MEDS: valACYclovir HCL 1,000 MG TABLET 1000 MG PO ×3 (01:06→21:14)
[2022-03-18] MEDS: rOPINIRole HCL 0.5 MG TABLET PO ×2 (01:06→21:14)
[2022-03-18] MEDS: OXcarbazepine 150 MG TABLET PO ×3 (01:06→21:14)
[2022-03-18] MEDS: OLANZapine 10 MG TABLET PO ×2 (01:06→21:14)
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
[2022-03-18] MEDS: Fluticasone/Vilanterol 200/25 BLST.W.DEV 1 PUFF INHALE (08:33)
[2022-03-18] MEDS: Omeprazole 20 MG CAPSULE.DR PO (08:34)
[2022-03-18] MEDS: Ferrous Sulfate 324 MG TABLET.DR PO (08:34)
[2022-03-18] MEDS: Sertraline HCL 50 MG TABLET PO (08:34)
[2022-03-18] MEDS: Cholecalciferol (Vitamin D3) 25 MCG TABLET PO (08:35)
[2022-03-18] MEDS: Cyanocobalamin (Vitamin B-12) 100 MCG TABLET PO (08:35)
[2022-03-18 08:39] VITALS: BP 105/56; PULSE 69; RESP 17; TEMP 36.7; O2SAT 92
[2022-03-18] MEDS: Acetaminophen 325 MG TABLET 650 MG PO ×2 (10:14→20:05)
[2022-03-18] MEDS: Nicotine 21 MG PATCH.TD24 TRANSDERMA (10:28)
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
[2022-03-18 21:10] VITALS: BP 123/65; PULSE 75; RESP 17; TEMP 36.7; O2SAT 95
[2022-03-19] MEDS: Fluticasone/Vilanterol 200/25 BLST.W.DEV 1 PUFF INHALE (08:22)
[2022-03-19] MEDS: Cholecalciferol (Vitamin D3) 25 MCG TABLET PO (08:22)
[2022-03-19] MEDS: Gabapentin 400 MG CAPSULE PO ×3 (08:23→20:08)
[2022-03-19] MEDS: OXcarbazepine 150 MG TABLET PO ×2 (08:23→20:08)
[2022-03-19] MEDS: Sertraline HCL 50 MG TABLET PO (08:23)
[2022-03-19] MEDS: Omeprazole 20 MG CAPSULE.DR PO (08:23)
[2022-03-19] MEDS: Ferrous Sulfate 324 MG TABLET.DR PO (08:24)
[2022-03-19] MEDS: Benztropine Mesylate 1 MG TABLET PO ×2 (08:24→20:08)
[2022-03-19] MEDS: valACYclovir HCL 1,000 MG TABLET 1000 MG PO ×2 (08:25→20:08)
[2022-03-19] MEDS: Lithium Carbonate 300 MG CAPSULE 600 MG PO ×2 (08:25→20:08)
[2022-03-19] MEDS: Cyanocobalamin (Vitamin B-12) 100 MCG TABLET PO (08:25)
[2022-03-19] MEDS: Nicotine 21 MG PATCH.TD24 TRANSDERMA (08:27)
[2022-03-19 08:30] VITALS: BP 120/60; PULSE 77; RESP 18; TEMP 36.4; O2SAT 96
[2022-03-19] MEDS: hydrOXYzine HCL 50 MG TABLET PO (14:04)
--- NOTE | 2022-03-19 14:35 | HO.PSYCHPN ---
Subjective Subjective Date of Service: 03/19/22 Reason For Visit: SI Interim History: pt found sleeping soundly in her room late morning, much more easily rousable today than yesterday, more awake on rousing. endorses same SX as yesterday but seems to indicate her AVH have lessened somewhat. c/o leg pain, asks about TEDS. c/o neck pain and enlarged cyst, which she had drained last time she was on M3. informed MD will have surgery take another look at it to see if any intervention is currently indicated. per staff, c/o anx/dep/SI. safe on unit. +AVH, CAH to jump off a bridge. somatic complaints - itchy, nauseated. passive SI expressed NOC shift, no plan. slept much of the day and then through the night. Mental Status Exam Mental Status Exam Narrative: asleep in bed mid-morning. rousable to voice. disheveled. cooperative. no PMA/PMR. speech nml in amount, loudness. flattened tone. incr rate, decr latency. thoughts linear and logical. affect constricted. mood so tired. denies HI. endorsed AVH. Diagnostics Vital Signs (24Hr): Vital Signs - 24 hr 03/18/22 21:10 03/19/22 08:30 Temperature 98.0 F 97.6 F Pulse Rate 75 77 Respiratory Rate 17 18 Blood Pressure 123/65 120/60 Pulse Oximetry 95 96 BMI result Body Mass Index 36.3 Labs Results: 03/17/22 12:09 03/17/22 12:09 Medications Medications Current Medications Acetaminophen (Acetaminophen 325 Mg Tablet) 650 mg PO Q6H PRN PRN Reason: Headache/Pain Mild Scale (1-3) Last Admin: 03/18/22 20:05 Dose: 650 mg Documented by: Al Hydroxide/Mg Hydroxide (Magnesium Hydrox/Alum Hydrox 30 Ml Oral.Susp) 30 ml PO Q6H PRN PRN Reason: Heartburn/Nausea Albuterol Sulfate (Albuterol Sulfate 90 Mcg 8 Gm Inhaler) 2 puff INHALE Q4H PRN PRN Reason: shortness of breath or wheezing Benzonatate (Benzonatate 100 Mg Capsule) 100 mg PO BID PRN PRN Reason: cough Benztropine Mesylate (Benztropine Mesylate 1 Mg Tablet) 1 mg PO BID [facility] Last Admin: 03/19/22 08:24 Dose: 1 mg Documented by: Capsaicin (Capsaicin 0.025% Cream 60 Gm Tube) 1 appl TOPICAL QID PRN; Protocol PRN Reason: leg pain Clonidine HCl (Clonidine Hcl 0.2 Mg Tablet) 0.2 mg PO BEDTIME [facility]; Protocol Last Admin: 03/18/22 21:14 Dose: 0.2 mg Documented by: Cyanocobalamin (Cyanocobalamin (Vitamin B-12) 100 Mcg Tablet) 100 mcg PO DAILY [facility] Last Admin: 03/19/22 08:25 Dose: 100 mcg Documented by: Ferrous Sulfate (Ferrous Sulfate 324 Mg Tablet.) 324 mg PO DAILY [facility] Last Admin: 03/19/22 08:24 Dose: 324 mg Documented by: Fluticasone/Vilanterol (Fluticasone/Vilanterol 200/25 Blst.W.Dev) 1 puff INHALE RDAILY [facility] Last Admin: 03/19/22 08:22 Dose: 1 puff Documented by: Gabapentin (Gabapentin 400 Mg Capsule) 400 mg PO TID [facility] Last Admin: 03/19/22 14:04 Dose: 400 mg Documented by: Hydroxyzine HCl (Hydroxyzine Hcl 50 Mg Tablet) 50 mg PO Q6H PRN PRN Reason: Itching Last Admin: 03/19/22 14:04 Dose: 50 mg Documented by: Rives Carbonate (Rives Carbonate 300 Mg Capsule) 600 mg PO BID [facility] Last Admin: 03/19/22 08:25 Dose: 600 mg Documented by: Magnesium Hydroxide (Milk Of Magnesia 30 Ml Oral.Susp) 30 ml PO DAILY PRN PRN Reason: Constipation Nicotine (Nicotine 21 Mg Patch.Td24) 21 mg TRANSDERMA DAILY [facility] Last Admin: 03/19/22 08:27 Dose: 21 mg Documented by: Nicotine Polacrilex (Nicotine Polacrilex 2 Mg Gum) 4 mg BUCCAL Q2H PRN PRN Reason: Nicotine Cravings Olanzapine (Olanzapine 10 Mg Tablet) 10 mg PO BEDTIME [facility] Last Admin: 03/18/22 21:14 Dose: 10 mg Documented by: Omeprazole (Omeprazole 20 Mg Capsule.) 20 mg PO DAILY@0630 [facility] Last Admin: 03/19/22 08:23 Dose: 20 mg Documented by: Oxcarbazepine (Oxcarbazepine 150 Mg Tablet) 150 mg PO BID [facility] Last Admin: 03/19/22 08:23 Dose: 150 mg Documented by: Ropinirole HCl (Ropinirole Hcl 0.5 Mg Tablet) 0.5 mg PO BEDTIME [facility] Last Admin: 03/18/22 21:14 Dose: 0.5 mg Documented by: Sertraline HCl (Sertraline Hcl 50 Mg Tablet) 50 mg PO DAILY [facility] Last Admin: 03/19/22 08:23 Dose: 50 mg Documented by: Tiotropium [place] (Tiotropium [place] 18 Mcg Cap.W.Dev) 1 puff INHALE RDAILY [facility] Last Admin: 03/19/22 08:22 Dose: 1 puff Documented by: Trazodone HCl (Trazodone Hcl 50 Mg Tablet) 50 mg PO BEDTIME PRN PRN Reason: Insomnia Trazodone HCl (Trazodone Hcl 100 Mg Tablet) 200 mg PO BEDTIME [facility] Last Admin: 03/18/22 21:14 Dose: 200 mg Documented by: Valacyclovir HCl (Valacyclovir Hcl 1,000 Mg Tablet) 1,000 mg PO BID [facility] Last Admin: 03/19/22 08:25 Dose: 1,000 mg Documented by: Vitamin D (Cholecalciferol (Vitamin D3) 25 Mcg Tablet) 25 mcg PO DAILY [facility] Last Admin: 03/19/22 08:22 Dose: 25 mcg Documented by: Allergies Allergies Allergy/AdvReac Type Severity Reaction Status Date / Time aspirin [Aspirin] Allergy Severe HIVES,THROAT Verified 10/13/21 04:51 SWELLS bee pollen [BEE STINGS] Allergy Severe ANAPHYLAXIS Verified 10/13/21 04:51 diphenhydramine Allergy Severe hives, Verified 10/13/21 04:51 [From BENADRYL ALLERGY] throat swells Penicillins [PCN] Allergy Severe HIVES Verified 10/13/21 04:51 THROAT SWELLS Sulfa (Sulfonamide Allergy Intermediate HIVES Verified 10/13/21 04:51 Antibiotics) [SULFA (SULFONAMIDE ANTIBIOTICS)] tramadol [TRAMADOL] Allergy Intermediate ITCHING Verified 10/13/21 04:51 latex [LATEX] Allergy Unknown UNKNOWN Verified 10/13/21 04:51 penicillin G Allergy Unknown Unknown Verified 10/13/21 04:51 levofloxacin [From Levaquin] Allergy Hives Verified 10/13/21 04:51 hydroxyzine AdvReac Severe restless Verified 01/27/22 19:57 legs seafood AdvReac Stomach Verified 03/17/22 12:07 Upset bee stings Allergy Unknown Unknown Uncoded 10/13/21 04:51 DairyCare Allergy Unknown Unknown Uncoded 10/13/21 04:51 sulfa drugs Allergy Unknown Unknown Uncoded 10/13/21 04:51 Assessment & Plan Assessment & Plan (1) PTSD (post-traumatic stress disorder): Status: Acute Code(s): F43.10 - Post-traumatic stress disorder, unspecified Plan restarted meds pt was discharged from on on 03/08/22. surgery consult for cyst. TEDS for edema. stabilize, discharge to outpt care once stable. I spent ___25___ minutes with the patient and/or on the patient floor today, greater than?50% of which was spent counseling/coordinating care. Reason for contiued inpatient stay Substantial Risk for: harm to self, inability to function and rapid decompensation
--- NOTE | 2022-03-19 14:59 | PM.CNGS ---
History of Present Illness Consult details Consult date: 03/19/22 Narrative: 52-year-old female referred to me for left parotid swelling. She is actually clear to me. I had seen her in the psych unit last October as well as about 2 weeks ago for left parotid swelling. Her CAT scan had shown a complex cyst in the left parotid. She was discharged the day after had seen her she actually was supposed to see a surgeon in [facility] last 03/08/2022 for this parotid swelling. However, she says she over slept at that time and therefore missed her appointment. She was readmitted yesterday because of suicidal ideations. This apparently was triggered because of the upcoming anniversary of the of her boyfriend. She feels that the left parotid being has increased in size. She describes a bit of pain. She does have some fibromyalgia as well so she also mentions multiple other aches and pains. Review of Systems Constitutional: Constitutional: Denies chills and Denies fever(s) Cardiovascular: Cardiovascular: Denies chest pain, Denies dyspnea and Denies dyspnea on exertion Respiratory: Respiratory: Denies cough, Denies dyspnea and Denies dyspnea on exertion Gastrointestinal: Gastrointestinal: Denies hematochezia and Denies change in bowel habits Genitourinary: Genitourinary: Denies hematuria Musculoskeletal: Musculoskeletal: Denies back pain, Reports myalgias, Reports arthralgias and Denies limited range of motion Neurologic: Denies focal weakness and Denies convulsions Psychiatric: Psychiatric: Reports depression and Reports mood swings PMFSH Past Medical History Medical History Asthma exacerbation in COPD Bipolar disorder Bipolar I disorder Borderline personality disorder Borderline personality disorder COPD (chronic obstructive pulmonary disease) Depression Depression Drug abuse Herpes Intermittent explosive disorder Mass of parotid gland FABIOLA (obstructive sleep apnea) Parotid mass Post traumatic stress disorder (PTSD) PTSD (post-traumatic stress disorder) PTSD (post-traumatic stress disorder) Tobacco use Family History Family History Mother COPD (chronic obstructive pulmonary disease) Surgical History Surgical History History of ankle surgery History of appendectomy History of back surgery Hx of cholecystectomy Social History Social History Household Members: None Household Members Other:: Prison in [place] Housing: Homeless Housing Other:: will be getting apartment 07/01 Do you presently have visiting nurse or other home services: No Unable to assess alcohol history related to: Unknown Alcohol intake: never Patient Tobacco Use Status: Current everyday Tobacco user Tobacco use type: Cigarette Cigarette Packs Per Day: 1 Cigarettes Per Day: 20.0 Years Smoked: 38 e-Cigarette/Vaping Use: Never Used Second Hand Smoke Exposure: Yes Substance Use Type: Crack/Cocaine Advance Directives Date on File: 12/24/20 service: No Current occupational status: unemployed and disabled Sexual orientation: Don't Know Meds Allergies Allergy/AdvReac Type Severity Reaction Status Date / Time aspirin [Aspirin] Allergy Severe HIVES,THROAT Verified 10/13/21 04:51 SWELLS bee pollen [BEE STINGS] Allergy Severe ANAPHYLAXIS Verified 10/13/21 04:51 diphenhydramine Allergy Severe hives, Verified 10/13/21 04:51 [From BENADRYL ALLERGY] throat swells Penicillins [PCN] Allergy Severe HIVES Verified 10/13/21 04:51 THROAT SWELLS Sulfa (Sulfonamide Allergy Intermediate HIVES Verified 10/13/21 04:51 Antibiotics) [SULFA (SULFONAMIDE ANTIBIOTICS)] tramadol [TRAMADOL] Allergy Intermediate ITCHING Verified 10/13/21 04:51 latex [LATEX] Allergy Unknown UNKNOWN Verified 10/13/21 04:51 penicillin G Allergy Unknown Unknown Verified 10/13/21 04:51 levofloxacin [From Levaquin] Allergy Hives Verified 10/13/21 04:51 hydroxyzine AdvReac Severe restless Verified 01/27/22 19:57 legs seafood AdvReac Stomach Verified 03/17/22 12:07 Upset bee stings Allergy Unknown Unknown Uncoded 10/13/21 04:51 DairyCare Allergy Unknown Unknown Uncoded 10/13/21 04:51 sulfa drugs Allergy Unknown Unknown Uncoded 10/13/21 04:51 Active Medications: Current Medications Acetaminophen (Acetaminophen 325 Mg Tablet) 650 mg PO Q6H PRN PRN Reason: Headache/Pain Mild Scale (1-3) Last Admin: 03/18/22 20:05 Dose: 650 mg Documented by: Al Hydroxide/Mg Hydroxide (Magnesium Hydrox/Alum Hydrox 30 Ml Oral.Susp) 30 ml PO Q6H PRN PRN Reason: Heartburn/Nausea Albuterol Sulfate (Albuterol Sulfate 90 Mcg 8 Gm Inhaler) 2 puff INHALE Q4H PRN PRN Reason: shortness of breath or wheezing Benzonatate (Benzonatate 100 Mg Capsule) 100 mg PO BID PRN PRN Reason: cough Benztropine Mesylate (Benztropine Mesylate 1 Mg Tablet) 1 mg PO BID [facility] Last Admin: 03/19/22 08:24 Dose: 1 mg Documented by: Capsaicin (Capsaicin 0.025% Cream 60 Gm Tube) 1 appl TOPICAL QID PRN; Protocol PRN Reason: leg pain Clonidine HCl (Clonidine Hcl 0.2 Mg Tablet) 0.2 mg PO BEDTIME [facility]; Protocol Last Admin: 03/18/22 21:14 Dose: 0.2 mg Documented by: Cyanocobalamin (Cyanocobalamin (Vitamin B-12) 100 Mcg Tablet) 100 mcg PO DAILY [facility] Last Admin: 03/19/22 08:25 Dose: 100 mcg Documented by: Ferrous Sulfate (Ferrous Sulfate 324 Mg Tablet.) 324 mg PO DAILY [facility] Last Admin: 03/19/22 08:24 Dose: 324 mg Documented by: Fluticasone/Vilanterol (Fluticasone/Vilanterol 200/25 Blst.W.Dev) 1 puff INHALE RDAILY [facility] Last Admin: 03/19/22 08:22 Dose: 1 puff Documented by: Gabapentin (Gabapentin 400 Mg Capsule) 400 mg PO TID [facility] Last Admin: 03/19/22 14:04 Dose: 400 mg Documented by: Hydroxyzine HCl (Hydroxyzine Hcl 50 Mg Tablet) 50 mg PO Q6H PRN PRN Reason: Itching Last Admin: 03/19/22 14:04 Dose: 50 mg Documented by: [place] Carbonate ([place] Carbonate 300 Mg Capsule) 600 mg PO BID [facility] Last Admin: 03/19/22 08:25 Dose: 600 mg Documented by: Magnesium Hydroxide (Milk Of Magnesia 30 Ml Oral.Susp) 30 ml PO DAILY PRN PRN Reason: Constipation Nicotine (Nicotine 21 Mg Patch.Td24) 21 mg TRANSDERMA DAILY [facility] Last Admin: 03/19/22 08:27 Dose: 21 mg Documented by: Nicotine Polacrilex (Nicotine Polacrilex 2 Mg Gum) 4 mg BUCCAL Q2H PRN PRN Reason: Nicotine Cravings Olanzapine (Olanzapine 10 Mg Tablet) 10 mg PO BEDTIME [facility] Last Admin: 03/18/22 21:14 Dose: 10 mg Documented by: Omeprazole (Omeprazole 20 Mg Capsule.Dr) 20 mg PO DAILY@0630 [facility] Last Admin: 03/19/22 08:23 Dose: 20 mg Documented by: Oxcarbazepine (Oxcarbazepine 150 Mg Tablet) 150 mg PO BID [facility] Last Admin: 03/19/22 08:23 Dose: 150 mg Documented by: Ropinirole HCl (Ropinirole Hcl 0.5 Mg Tablet) 0.5 mg PO BEDTIME [facility] Last Admin: 03/18/22 21:14 Dose: 0.5 mg Documented by: Sertraline HCl (Sertraline Hcl 50 Mg Tablet) 50 mg PO DAILY [facility] Last Admin: 03/19/22 08:23 Dose: 50 mg Documented by: Tiotropium [place] (Tiotropium [place] 18 Mcg Cap.W.Dev) 1 puff INHALE RDAILY [facility] Last Admin: 03/19/22 08:22 Dose: 1 puff Documented by: Trazodone HCl (Trazodone Hcl 50 Mg Tablet) 50 mg PO BEDTIME PRN PRN Reason: Insomnia Trazodone HCl (Trazodone Hcl 100 Mg Tablet) 200 mg PO BEDTIME [facility] Last Admin: 03/18/22 21:14 Dose: 200 mg Documented by: Valacyclovir HCl (Valacyclovir Hcl 1,000 Mg Tablet) 1,000 mg PO BID [facility] Last Admin: 03/19/22 08:25 Dose: 1,000 mg Documented by: Vitamin D (Cholecalciferol (Vitamin D3) 25 Mcg Tablet) 25 mcg PO DAILY [facility] Last Admin: 03/19/22 08:22 Dose: 25 mcg Documented by: Physical Exam Vital Signs: Vital Signs: Last Vital Signs Temp 97.6 F 03/19/22 08:30 Pulse 77 03/19/22 08:30 Resp 18 03/19/22 08:30 BP 120/60 03/19/22 08:30 Pulse Ox 96 03/19/22 08:30 BMI result Body Mass Index 36.3 Const: Other: Appears comfortable now and does not seem to be in any emotional distress General: comfortable and no acute distress Orientation/consciousness: patient oriented x3 Neck: Other: parotid swelling on the left no significant tenderness, no cellulitis, no fluctuance Neck: Yes no lymphadenopathy Resp: Auscultation: clear to auscultation bilaterally Cardio: Rhythm: regular rhythm GI: Palpation (GI): Soft to palpation, nontender and no guarding Neuro: General: patient oriented x3 Results Labs Result diagrams: 03/17/22 12:09 03/17/22 12:09 Labs: All other labs normal. Imaging Additional studies: Laboratory Results WBC 7.4 X10*3/uL (4.8-10.8) 03/17/22 12:09 RBC 4.52 X10*6/uL (4.20-5.50) 03/17/22 12:09 Hgb 13.5 g/dl (12.0-16.0) 03/17/22 12:09 Hct 42.2 % (37.0-47.0) 03/17/22 12:09 MCV 93.4 fL (80.0-98.0) 03/17/22 12:09 MCH 29.9 pg (27.0-33.0) 03/17/22 12:09 MCHC 32.0 g/dl (31.0-35.0) 03/17/22 12:09 RDW 13.2 % (11.0-16.0) 03/17/22 12:09 Plt Count 312 X10*3/uL (160-400) 03/17/22 12:09 MPV 9.8 fL (9.4-12.3) 03/17/22 12:09 Immature Gran % (Auto) 0.4 % (0.0-0.4) 03/17/22 12:09 Neut % (Auto) 63.5 % (45-73) 03/17/22 12:09 Lymph % (Auto) 28.3 % (20-40) 03/17/22 12:09 [place] % (Auto) 5.4 % (2-11) 03/17/22 12:09 Eos % (Auto) 1.4 % (0-4) 03/17/22 12:09 Baso % (Auto) 1.0 % (0-2) 03/17/22 12:09 Lymph # (Auto) 2.1 X10*3/uL (1.2-4.9) 03/17/22 12:09 [place] # (Auto) 0.4 X10*3/uL (0.1-1.2) 03/17/22 12:09 Eos # (Auto) 0.1 X10*3/uL (0.0-0.4) 03/17/22 12:09 Baso # (Auto) 0.1 X10*3/uL (0.0-0.2) 03/17/22 12:09 Abs Immat Gran (auto) 0.03 X10*3/uL (0.00-0.03) 03/17/22 12:09 Absolute Neuts (auto) 4.7 x10*3/uL (2.0-8.3) 03/17/22 12:09 Absolute Nucleated RBC 0.000 X10*3/uL (0.0-0.012) 03/17/22 12:09 Nucleated RBC % (auto) 0.0 /100WBC (0.0-0.2) 03/17/22 12:09 Sodium 141 mmol/L (135-145) 03/17/22 12:09 Potassium 4.1 mmol/L (3.3-5.1) 03/17/22 12:09 Chloride 106 mmol/L (96-108) 03/17/22 12:09 Carbon Dioxide 26 mmol/L (22-29) 03/17/22 12:09 Anion Gap 13 (12-20) 03/17/22 12:09 BUN 16 mg/dL (9-16) 03/17/22 12:09 Creatinine 0.75 mg/dL (0.5-1.4) 03/17/22 12:09 Estim Creat Clear Calc 106.9 03/17/22 12:09 Estimated GFR > 60 03/17/22 12:09 Random Glucose 137 mg/dL (60-115) H 03/17/22 12:09 Calcium 9.6 mg/dL (8.4-10.2) 03/17/22 12:09 Total Bilirubin 0.4 mg/dL (0.0-1.0) 03/17/22 12:09 AST 11 U/L (5-31) 03/17/22 12:09 ALT 17 U/L (0-31) 03/17/22 12:09 Alkaline Phosphatase 71 U/L (39-117) 03/17/22 12:09 Total Protein 6.9 g/dL (6.5-8.0) 03/17/22 12:09 Albumin 4.4 g/dL (3.5-5.0) 03/17/22 12:09 Urine Opiates Screen Not Detected (Not Detect) 03/17/22 12:08 Urine Fentanyl Screen Not Detected (Not Detect) 03/17/22 12:08 Ur Barbiturates Screen Not Detected (Not Detect) 03/17/22 12:08 Ur Phencyclidine Scrn Not Detected (Not Detect) 03/17/22 12:08 Ur Amphetamines Screen Not Detected (Not Detect) 03/17/22 12:08 U Benzodiazepines Scrn Not Detected (Not Detect) 03/17/22 12:08 Urine Cocaine Screen POSITIVE (Not Detect) H 03/17/22 12:08 U Marijuana (THC) Screen Not Detected (Not Detect) 03/17/22 12:08 COVID-19 (ENDY) Negative (Negative) 03/17/22 12:09 COVID-19 Clin Com See Note 03/17/22 12:09 Significant increase in size of a large mixed cystic and solid mass extending from the superficial and deep lobes of the posterior aspect of the left parotid gland into the left retroauricular soft tissues inferiorly and into the anterior margin of the left sternocleidomastoid muscle currently measuring up to 4.4 cm TV by 4.2 cm AP in size compared to 2.7 cm TV by 2.9 cm AP on the 10/03/[address] Recommend correlating with the previous biopsy results. Assessment and Plan (1) Mass of parotid gland: Status: Acute Plan She has this persistent swelling of the left parotid. She actually had a biopsy done last October 2021 here showing acute sialadenitis. She also had aspiration using ultrasound at that time. She had a CAT scan done 2 weeks ago showing complex cyst on the left parotid. She was supposed to see a surgeon in [facility] for this last March 08 but she had overslept. She has been readmitted at the psych unit for suicidal ideations . She says that her parotid swelling to have increased in size. I am uncertain if there is any drainable abscess or fluid in this area. I can order for an ultrasound says this and discuss this with the radiologist to see if benefit for any drainage while here in the hospital. At any rate, I re-emphasized to her that she should see her head and neck surgeon in [facility] for this especially after discharge. Procedures Date of Service Date of Service: 03/19/22
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
--- NOTE | 2022-03-19 16:14 | PC.NURSE ---
Patient merasured for compression stockings. Stockings applied at patient request when received.
[2022-03-19] MEDS: rOPINIRole HCL 0.5 MG TABLET PO (20:08)
[2022-03-19] MEDS: Acetaminophen 325 MG TABLET 650 MG PO (20:08)
[2022-03-19] MEDS: cloNIDine HCL 0.2 MG TABLET PO (20:08)
[2022-03-19] MEDS: OLANZapine 10 MG TABLET PO (20:08)
[2022-03-19 20:23] VITALS: BP 125/77; PULSE 84; RESP 18; TEMP 37.1; O2SAT 93
[2022-03-19] MEDS: traZODone HCL 100 MG TABLET 200 MG PO (21:03)
[2022-03-20] MEDS: Omeprazole 20 MG CAPSULE.DR PO (06:19)
[2022-03-20 09:14] VITALS: BP 132/72; PULSE 80; RESP 18; TEMP 36.7; O2SAT 95
[2022-03-20] MEDS: Fluticasone/Vilanterol 200/25 BLST.W.DEV 1 PUFF INHALE (09:21)
[2022-03-20] MEDS: Sertraline HCL 50 MG TABLET PO (09:23)
[2022-03-20] MEDS: Benztropine Mesylate 1 MG TABLET PO ×2 (09:23→20:43)
[2022-03-20] MEDS: valACYclovir HCL 1,000 MG TABLET 1000 MG PO ×2 (09:23→20:44)
[2022-03-20] MEDS: Lithium Carbonate 300 MG CAPSULE 600 MG PO ×2 (09:24→20:43)
[2022-03-20] MEDS: Nicotine 21 MG PATCH.TD24 TRANSDERMA (09:24)
[2022-03-20] MEDS: Cholecalciferol (Vitamin D3) 25 MCG TABLET PO (09:24)
[2022-03-20] MEDS: Ferrous Sulfate 324 MG TABLET.DR PO (09:24)
[2022-03-20] MEDS: OXcarbazepine 150 MG TABLET PO ×2 (09:25→20:44)
[2022-03-20] MEDS: Gabapentin 400 MG CAPSULE PO ×3 (09:25→20:44)
[2022-03-20] MEDS: Cyanocobalamin (Vitamin B-12) 100 MCG TABLET PO (09:25)
--- NOTE | 2022-03-20 15:20 | P.PNPSI_ITS ---
Subjective Subjective Date of Service: 03/20/22 Reason For Visit: SI Subjective Notes: Conditional Voluntary Interim History: today reports feeling depressed, suicidal, having auditory hallucinations and visual hallucinations. Reports they happened when she was at our group more upsetting. Described losing important documents some property and coupled along with lots of loss throughout her life and this being a difficult time of year, feeling more depressed. Reports not having access to medications due to uncertainty around her pharmacy sent them also contributed to worsening depression, psychosis and suicidal thoughts. Is feeling supported in the [facility] setting. Denies active SI. Medication Compliance: Yes Side effects from medications: No Attending Groups: Intermittent Review of Systems Acute medical concerns: No Medical Review of Systems: unchanged Mental Status Exam Mental Status Exam Narrative: Pleasant. In room. Fair self-care. Organized. Depressed. Intermittent SI but no plans or intent. No HI. Endorses auditory and visual hallucinations. Negative in nature. Insight and judgment okay Diagnostics Vital Signs (24Hr): Vital Signs - 24 hr 03/19/22 20:23 03/20/22 09:14 Temperature 98.7 F 98.0 F Pulse Rate 84 80 Respiratory Rate 18 18 Blood Pressure 125/77 132/72 Pulse Oximetry 93 95 BMI result Body Mass Index 36.3 Labs Results: 03/17/22 12:09 03/17/22 12:09 Imaging Radiology Impressions: ITS Impressions Head/Neck Ultrasound 03/19/22 15:51 IMPRESSION: Mixed cystic and solid lesion left parotid gland suspicious for malignancy. Recommend further evaluation with MRI neck with attention to parotid gland or ultrasound-guided biopsy. Medications Medications Current Medications Acetaminophen (Acetaminophen 325 Mg Tablet) 650 mg PO Q6H PRN PRN Reason: Headache/Pain Mild Scale (1-3) Last Admin: 03/19/22 20:08 Dose: 650 mg Documented by: Al Hydroxide/Mg Hydroxide (Magnesium Hydrox/Alum Hydrox 30 Ml Oral.Susp) 30 ml PO Q6H PRN PRN Reason: Heartburn/Nausea Albuterol Sulfate (Albuterol Sulfate 90 Mcg 8 Gm Inhaler) 2 puff INHALE Q4H PRN PRN Reason: shortness of breath or wheezing Benzonatate (Benzonatate 100 Mg Capsule) 100 mg PO BID PRN PRN Reason: cough Benztropine Mesylate (Benztropine Mesylate 1 Mg Tablet) 1 mg PO BID [facility] Last Admin: 03/20/22 09:23 Dose: 1 mg Documented by: Capsaicin (Capsaicin 0.025% Cream 60 Gm Tube) 1 appl TOPICAL QID PRN; Protocol PRN Reason: leg pain Clonidine HCl (Clonidine Hcl 0.2 Mg Tablet) 0.2 mg PO BEDTIME [facility]; Protocol Last Admin: 03/19/22 20:08 Dose: 0.2 mg Documented by: Cyanocobalamin (Cyanocobalamin (Vitamin B-12) 100 Mcg Tablet) 100 mcg PO DAILY [facility] Last Admin: 03/20/22 09:25 Dose: 100 mcg Documented by: Ferrous Sulfate (Ferrous Sulfate 324 Mg Tablet.) 324 mg PO DAILY [facility] Last Admin: 03/20/22 09:24 Dose: 324 mg Documented by: Fluticasone/Vilanterol (Fluticasone/Vilanterol 200/25 Blst.W.Dev) 1 puff INHALE RDAILY [facility] Last Admin: 03/20/22 09:21 Dose: 1 puff Documented by: Gabapentin (Gabapentin 400 Mg Capsule) 400 mg PO TID [facility] Last Admin: 03/20/22 14:57 Dose: 400 mg Documented by: Hydroxyzine HCl (Hydroxyzine Hcl 50 Mg Tablet) 50 mg PO Q6H PRN PRN Reason: Itching Last Admin: 03/19/22 14:04 Dose: 50 mg Documented by: [place] Carbonate ([place] Carbonate 300 Mg Capsule) 600 mg PO BID [facility] Last Admin: 03/20/22 09:24 Dose: 600 mg Documented by: Magnesium Hydroxide (Milk Of Magnesia 30 Ml Oral.Susp) 30 ml PO DAILY PRN PRN Reason: Constipation Nicotine (Nicotine 21 Mg Patch.Td24) 21 mg TRANSDERMA DAILY [facility] Last Admin: 03/20/22 09:24 Dose: 21 mg Documented by: Nicotine Polacrilex (Nicotine Polacrilex 2 Mg Gum) 4 mg BUCCAL Q2H PRN PRN Reason: Nicotine Cravings Olanzapine (Olanzapine 10 Mg Tablet) 10 mg PO BEDTIME [facility] Last Admin: 03/19/22 20:08 Dose: 10 mg Documented by: Omeprazole (Omeprazole 20 Mg Capsule.) 20 mg PO DAILY@0630 [facility] Last Admin: 03/20/22 06:19 Dose: 20 mg Documented by: Oxcarbazepine (Oxcarbazepine 150 Mg Tablet) 150 mg PO BID [facility] Last Admin: 03/20/22 09:25 Dose: 150 mg Documented by: Ropinirole HCl (Ropinirole Hcl 0.5 Mg Tablet) 0.5 mg PO BEDTIME [facility] Last Admin: 03/19/22 20:08 Dose: 0.5 mg Documented by: Sertraline HCl (Sertraline Hcl 50 Mg Tablet) 50 mg PO DAILY [facility] Last Admin: 03/20/22 09:23 Dose: 50 mg Documented by: Tiotropium [place] (Tiotropium [place] 18 Mcg Cap.W.Dev) 1 puff INHALE RDAILY [facility] Last Admin: 03/20/22 09:21 Dose: 1 puff Documented by: Trazodone HCl (Trazodone Hcl 50 Mg Tablet) 50 mg PO BEDTIME PRN PRN Reason: Insomnia Trazodone HCl (Trazodone Hcl 100 Mg Tablet) 200 mg PO BEDTIME [facility] Last Admin: 03/19/22 21:03 Dose: 200 mg Documented by: Valacyclovir HCl (Valacyclovir Hcl 1,000 Mg Tablet) 1,000 mg PO BID [facility] Last Admin: 03/20/22 09:23 Dose: 1,000 mg Documented by: Vitamin D (Cholecalciferol (Vitamin D3) 25 Mcg Tablet) 25 mcg PO DAILY [facility] Last Admin: 03/20/22 09:24 Dose: 25 mcg Documented by: Allergies Allergies Allergy/AdvReac Type Severity Reaction Status Date / Time aspirin [Aspirin] Allergy Severe HIVES,THROAT Verified 10/13/21 04:51 SWELLS bee pollen [BEE STINGS] Allergy Severe ANAPHYLAXIS Verified 10/13/21 04:51 diphenhydramine Allergy Severe hives, Verified 10/13/21 04:51 [From BENADRYL ALLERGY] throat swells Penicillins [PCN] Allergy Severe HIVES Verified 10/13/21 04:51 THROAT SWELLS Sulfa (Sulfonamide Allergy Intermediate HIVES Verified 10/13/21 04:51 Antibiotics) [SULFA (SULFONAMIDE ANTIBIOTICS)] tramadol [TRAMADOL] Allergy Intermediate ITCHING Verified 10/13/21 04:51 latex [LATEX] Allergy Unknown UNKNOWN Verified 10/13/21 04:51 penicillin G Allergy Unknown Unknown Verified 10/13/21 04:51 levofloxacin [From Levaquin] Allergy Hives Verified 10/13/21 04:51 hydroxyzine AdvReac Severe restless Verified 01/27/22 19:57 legs seafood AdvReac Stomach Verified 03/17/22 12:07 Upset bee stings Allergy Unknown Unknown Uncoded 10/13/21 04:51 DairyCare Allergy Unknown Unknown Uncoded 10/13/21 04:51 sulfa drugs Allergy Unknown Unknown Uncoded 10/13/21 04:51 Assessment & Plan Assessment & Plan (1) PTSD (post-traumatic stress disorder): Status: Acute Code(s): F43.10 - Post-traumatic stress disorder, unspecified Assessment and Plan: presents with depression, PTSD and psychosis and suicidal thoughts in the context of stressors and being off medications and substance misuse. Maintain restarted medications including gabapentin 400 mg 3 times per day, lithium 600 mg twice daily, clonidine 0.2 mg at bedtime, Zoloft 50 mg, olanzapine 10 mg, trazodone 200 mg, Trileptal 150 mg twice daily I spent minutes with the patient and/or on the patient floor today, greater than?50% of which was spent counseling/coordinating care. Reason for contiued inpatient stay Substantial Risk for: harm to self
[2022-03-20 15:57] VITALS: TEMP 36.3
[2022-03-20] MEDS: OLANZapine 10 MG TABLET PO (20:43)
[2022-03-20] MEDS: cloNIDine HCL 0.2 MG TABLET PO (20:43)
[2022-03-20] MEDS: traZODone HCL 100 MG TABLET 200 MG PO (20:43)
[2022-03-20] MEDS: rOPINIRole HCL 0.5 MG TABLET PO (20:44)
[2022-03-20 20:45] VITALS: BP 132/79; PULSE 88; RESP 18; O2SAT 93
--- NOTE | 2022-03-20 22:47 | PC.NURSE ---
Consulted w/ RT on continued issues w/ pt own CPAP at night. Pt reporting CPAP machine has water in tubing causing her to breathe in water and wake up abruptly during the night. RT observed humidity settings on high, possibly causing condensation in tubing. Provided pt w/new tubing and mask and advised that mask, tubing, and filter should be changed [id number] at home. Advised pt to follow up w/outpt to ensure settings and mask is proper settings for pt.
[2022-03-21] MEDS: Omeprazole 20 MG CAPSULE.DR PO (06:00)
[2022-03-21 08:24] VITALS: BP 111/59; PULSE 80; RESP 18; TEMP 36.6; O2SAT 93
[2022-03-21] MEDS: Cholecalciferol (Vitamin D3) 25 MCG TABLET PO (08:29)
[2022-03-21] MEDS: Benztropine Mesylate 1 MG TABLET PO ×2 (08:29→20:38)
[2022-03-21] MEDS: Lithium Carbonate 300 MG CAPSULE 600 MG PO ×2 (08:29→20:38)
[2022-03-21] MEDS: valACYclovir HCL 1,000 MG TABLET 1000 MG PO ×2 (08:29→20:38)
[2022-03-21] MEDS: OXcarbazepine 150 MG TABLET PO ×2 (08:29→20:38)
[2022-03-21] MEDS: Gabapentin 400 MG CAPSULE PO ×3 (08:29→20:38)
[2022-03-21] MEDS: Ferrous Sulfate 324 MG TABLET.DR PO (08:29)
[2022-03-21] MEDS: Cyanocobalamin (Vitamin B-12) 100 MCG TABLET PO (08:29)
[2022-03-21] MEDS: Sertraline HCL 50 MG TABLET PO (08:30)
[2022-03-21] MEDS: Nicotine 21 MG PATCH.TD24 TRANSDERMA (08:41)
[2022-03-21] MEDS: Fluticasone/Vilanterol 200/25 BLST.W.DEV 1 PUFF INHALE (08:41)
--- NOTE | 2022-03-21 14:56 | P.PNPSI_ITS ---
Subjective Subjective Date of Service: 03/21/22 Reason For Visit: SI Interim History: Slept well last night- CPAP repaired. Feels less depressed and suicidal. No AH/VH so far today. Still has anxiety. Is feeling supported in the hospital setting. Denies active SI. Medication Compliance: Yes Side effects from medications: No Attending Groups: No Mental Status Exam Mental Status Exam Narrative: Pleasant. In room. Fair self-care. Organized. Depressed. Intermittent SI but no plans or intent. No HI. Endorses auditory and visual hallucinations. Negative in nature. Insight and judgment okay Diagnostics Vital Signs (24Hr): Vital Signs - 24 hr 03/20/22 15:57 03/20/22 20:45 03/21/22 08:24 Temperature 97.4 F 97.9 F Pulse Rate 88 80 Respiratory Rate 18 18 Blood Pressure 132/79 111/59 L Pulse Oximetry 93 93 BMI result Body Mass Index 36.3 Labs Results: 03/17/22 12:09 03/17/22 12:09 Imaging Radiology Impressions: ITS Impressions Head/Neck Ultrasound 03/19/22 15:51 IMPRESSION: Mixed cystic and solid lesion left parotid gland suspicious for malignancy. Recommend further evaluation with MRI neck with attention to parotid gland or ultrasound-guided biopsy. Medications Medications Current Medications Acetaminophen (Acetaminophen 325 Mg Tablet) 650 mg PO Q6H PRN PRN Reason: Headache/Pain Mild Scale (1-3) Last Admin: 03/19/22 20:08 Dose: 650 mg Documented by: Al Hydroxide/Mg Hydroxide (Magnesium Hydrox/Alum Hydrox 30 Ml Oral.Susp) 30 ml PO Q6H PRN PRN Reason: Heartburn/Nausea Albuterol Sulfate (Albuterol Sulfate 90 Mcg 8 Gm Inhaler) 2 puff INHALE Q4H PRN PRN Reason: shortness of breath or wheezing Benzonatate (Benzonatate 100 Mg Capsule) 100 mg PO BID PRN PRN Reason: cough Benztropine Mesylate (Benztropine Mesylate 1 Mg Tablet) 1 mg PO BID [facility] Last Admin: 03/21/22 08:29 Dose: 1 mg Documented by: Capsaicin (Capsaicin 0.025% Cream 60 Gm Tube) 1 appl TOPICAL QID PRN; Protocol PRN Reason: leg pain Clonidine HCl (Clonidine Hcl 0.2 Mg Tablet) 0.2 mg PO BEDTIME [facility]; Protocol Last Admin: 03/20/22 20:43 Dose: 0.2 mg Documented by: Cyanocobalamin (Cyanocobalamin (Vitamin B-12) 100 Mcg Tablet) 100 mcg PO DAILY [facility] Last Admin: 03/21/22 08:29 Dose: 100 mcg Documented by: Ferrous Sulfate (Ferrous Sulfate 324 Mg Tablet.) 324 mg PO DAILY [facility] Last Admin: 03/21/22 08:29 Dose: 324 mg Documented by: Fluticasone/Vilanterol (Fluticasone/Vilanterol 200/25 Blst.W.Dev) 1 puff INHALE RDAILY [facility] Last Admin: 03/21/22 08:41 Dose: 1 puff Documented by: Gabapentin (Gabapentin 400 Mg Capsule) 400 mg PO TID [facility] Last Admin: 03/21/22 08:29 Dose: 400 mg Documented by: Hydroxyzine HCl (Hydroxyzine Hcl 50 Mg Tablet) 50 mg PO Q6H PRN PRN Reason: Itching Last Admin: 03/19/22 14:04 Dose: 50 mg Documented by: [place] Carbonate ([place] Carbonate 300 Mg Capsule) 600 mg PO BID [facility] Last Admin: 03/21/22 08:29 Dose: 600 mg Documented by: Magnesium Hydroxide (Milk Of Magnesia 30 Ml Oral.Susp) 30 ml PO DAILY PRN PRN Reason: Constipation Nicotine (Nicotine 21 Mg Patch.Td24) 21 mg TRANSDERMA DAILY [facility] Last Admin: 03/21/22 08:41 Dose: 21 mg Documented by: Nicotine Polacrilex (Nicotine Polacrilex 2 Mg Gum) 4 mg BUCCAL Q2H PRN PRN Reason: Nicotine Cravings Olanzapine (Olanzapine 10 Mg Tablet) 10 mg PO BEDTIME [facility] Last Admin: 03/20/22 20:43 Dose: 10 mg Documented by: Omeprazole (Omeprazole 20 Mg Capsule.) 20 mg PO DAILY@0630 [facility] Last Admin: 03/21/22 06:00 Dose: 20 mg Documented by: Oxcarbazepine (Oxcarbazepine 150 Mg Tablet) 150 mg PO BID [facility] Last Admin: 03/21/22 08:29 Dose: 150 mg Documented by: Ropinirole HCl (Ropinirole Hcl 0.5 Mg Tablet) 0.5 mg PO BEDTIME [facility] Last Admin: 03/20/22 20:44 Dose: 0.5 mg Documented by: Sertraline HCl (Sertraline Hcl 50 Mg Tablet) 50 mg PO DAILY [facility] Last Admin: 03/21/22 08:30 Dose: 50 mg Documented by: Tiotropium [place] (Tiotropium [place] 18 Mcg Cap.W.Dev) 1 puff INHALE RDAILY [facility] Last Admin: 03/21/22 08:31 Dose: 1 puff Documented by: Trazodone HCl (Trazodone Hcl 50 Mg Tablet) 50 mg PO BEDTIME PRN PRN Reason: Insomnia Trazodone HCl (Trazodone Hcl 100 Mg Tablet) 200 mg PO BEDTIME [facility] Last Admin: 03/20/22 20:43 Dose: 200 mg Documented by: Valacyclovir HCl (Valacyclovir Hcl 1,000 Mg Tablet) 1,000 mg PO BID [facility] Last Admin: 03/21/22 08:29 Dose: 1,000 mg Documented by: Vitamin D (Cholecalciferol (Vitamin D3) 25 Mcg Tablet) 25 mcg PO DAILY [facility] Last Admin: 03/21/22 08:29 Dose: 25 mcg Documented by: Allergies Allergies Allergy/AdvReac Type Severity Reaction Status Date / Time aspirin [Aspirin] Allergy Severe HIVES,THROAT Verified 10/13/21 04:51 SWELLS bee pollen [BEE STINGS] Allergy Severe ANAPHYLAXIS Verified 10/13/21 04:51 diphenhydramine Allergy Severe hives, Verified 10/13/21 04:51 [From BENADRYL ALLERGY] throat swells Penicillins [PCN] Allergy Severe HIVES Verified 10/13/21 04:51 THROAT SWELLS Sulfa (Sulfonamide Allergy Intermediate HIVES Verified 10/13/21 04:51 Antibiotics) [SULFA (SULFONAMIDE ANTIBIOTICS)] tramadol [TRAMADOL] Allergy Intermediate ITCHING Verified 10/13/21 04:51 latex [LATEX] Allergy Unknown UNKNOWN Verified 10/13/21 04:51 penicillin G Allergy Unknown Unknown Verified 10/13/21 04:51 levofloxacin [From Levaquin] Allergy Hives Verified 10/13/21 04:51 hydroxyzine AdvReac Severe restless Verified 01/27/22 19:57 legs seafood AdvReac Stomach Verified 03/17/22 12:07 Upset bee stings Allergy Unknown Unknown Uncoded 10/13/21 04:51 DairyCare Allergy Unknown Unknown Uncoded 10/13/21 04:51 sulfa drugs Allergy Unknown Unknown Uncoded 10/13/21 04:51 Assessment & Plan Assessment & Plan (1) PTSD (post-traumatic stress disorder): Status: Acute Code(s): F43.10 - Post-traumatic stress disorder, unspecified Assessment and Plan: presents with depression, PTSD and psychosis and suicidal thoughts in the context of stressors and being off medications and substance misuse. Maintain restarted medications including gabapentin 400 mg 3 times per day, lithium 600 mg twice daily, clonidine 0.2 mg at bedtime, Zoloft 50 mg, olanzapine 10 mg, trazodone 200 mg, Trileptal 150 mg twice daily 03/21: clonidine 0.1mg prn for anxiety I spent minutes with the patient and/or on the patient floor today, greater than?50% of which was spent counseling/coordinating care. Reason for contiued inpatient stay Substantial Risk for: harm to self
[2022-03-21] MEDS: rOPINIRole HCL 0.5 MG TABLET PO (20:38)
[2022-03-21] MEDS: OLANZapine 10 MG TABLET PO (20:38)
[2022-03-21] MEDS: traZODone HCL 100 MG TABLET 200 MG PO (20:38)
[2022-03-21] MEDS: cloNIDine HCL 0.2 MG TABLET PO (20:38)
[2022-03-21 20:41] VITALS: BP 140/73; PULSE 82; RESP 18; TEMP 36.7; O2SAT 93
[2022-03-21] MEDS: hydrOXYzine HCL 50 MG TABLET PO (22:01)
[2022-03-21] MEDS: traZODone HCL 50 MG TABLET PO (22:01)
[2022-03-22] MEDS: Omeprazole 20 MG CAPSULE.DR PO (06:52)
[2022-03-22] MEDS: Acetaminophen 325 MG TABLET 650 MG PO (06:53)
[2022-03-22] MEDS: Gabapentin 400 MG CAPSULE PO ×3 (08:27→21:00)
[2022-03-22] MEDS: Fluticasone/Vilanterol 200/25 BLST.W.DEV 1 PUFF INHALE (08:27)
[2022-03-22] MEDS: OXcarbazepine 150 MG TABLET PO ×2 (08:28→21:00)
[2022-03-22] MEDS: Cholecalciferol (Vitamin D3) 25 MCG TABLET PO (08:28)
[2022-03-22] MEDS: Lithium Carbonate 300 MG CAPSULE 600 MG PO ×2 (08:28→21:01)
[2022-03-22] MEDS: Benztropine Mesylate 1 MG TABLET PO ×2 (08:29→21:00)
[2022-03-22] MEDS: Cyanocobalamin (Vitamin B-12) 100 MCG TABLET PO (08:29)
[2022-03-22] MEDS: valACYclovir HCL 1,000 MG TABLET 1000 MG PO ×2 (08:29→21:00)
[2022-03-22 09:00] VITALS: BP 120/66; PULSE 76; RESP 18; TEMP 36.4; O2SAT 95
[2022-03-22] MEDS: Nicotine 21 MG PATCH.TD24 TRANSDERMA (10:03)
[2022-03-22] MEDS: Sertraline HCL 50 MG TABLET PO (10:07)
[2022-03-22] MEDS: Ferrous Sulfate 324 MG TABLET.DR PO (10:07)
[2022-03-22] MEDS: Milk of Magnesia 30 ML ORAL.SUSP PO (13:39)
--- NOTE | 2022-03-22 13:40 | P.PNPSI_ITS ---
Subjective Subjective Date of Service: 03/22/22 Reason For Visit: SI Interim History: pt holding court at table in milieu, clearly feeling better than last week. she reports she has been up and about all weekend. sleeping well, eating well, busy on the unit. denies AVH. amenable to DC tuesday. awaiting word from surgery re whether or not she will be having her cyst drained here. reemphasized the need for her to F/U at [facility]. per staff, isolative. +AH, not RIS. anx/dep 04/09. denies SI/HI/VH. Mental Status Exam Mental Status Exam Narrative: seated at table in milieu. appropriately dressed and groomed. cooperative. no PMA/PMR. speech nml in amount, loudness, tone, rate, latency. thoughts linear and logical. affect full range normo-intense, non-labile. mood much improved from admission. denies AVH. no SI/HI expressed. Diagnostics Vital Signs (24Hr): Vital Signs - 24 hr 03/21/22 20:41 03/22/22 09:00 Temperature 98.1 F 97.6 F Pulse Rate 82 76 Respiratory Rate 18 18 Blood Pressure 140/73 H 120/66 Pulse Oximetry 93 95 BMI result Body Mass Index 36.3 Labs Results: 03/17/22 12:09 03/17/22 12:09 Imaging Radiology Impressions: ITS Impressions Head/Neck Ultrasound 03/19/22 15:51 IMPRESSION: Mixed cystic and solid lesion left parotid gland suspicious for malignancy. Recommend further evaluation with MRI neck with attention to parotid gland or ultrasound-guided biopsy. Medications Medications Current Medications Acetaminophen (Acetaminophen 325 Mg Tablet) 650 mg PO Q6H PRN PRN Reason: Headache/Pain Mild Scale (1-3) Last Admin: 03/22/22 06:53 Dose: 650 mg Documented by: Al Hydroxide/Mg Hydroxide (Magnesium Hydrox/Alum Hydrox 30 Ml Oral.Susp) 30 ml PO Q6H PRN PRN Reason: Heartburn/Nausea Albuterol Sulfate (Albuterol Sulfate 90 Mcg 8 Gm Inhaler) 2 puff INHALE Q4H PRN PRN Reason: shortness of breath or wheezing Benzonatate (Benzonatate 100 Mg Capsule) 100 mg PO BID PRN PRN Reason: cough Benztropine Mesylate (Benztropine Mesylate 1 Mg Tablet) 1 mg PO BID [facility] Last Admin: 03/22/22 08:29 Dose: 1 mg Documented by: Capsaicin (Capsaicin 0.025% Cream 60 Gm Tube) 1 appl TOPICAL QID PRN; Protocol PRN Reason: leg pain Clonidine HCl (Clonidine Hcl 0.2 Mg Tablet) 0.2 mg PO BEDTIME [facility]; Protocol Last Admin: 03/21/22 20:38 Dose: 0.2 mg Documented by: Clonidine HCl (Clonidine Hcl 0.1 Mg Tablet) 0.1 mg PO TID PRN; Protocol PRN Reason: anxiety Cyanocobalamin (Cyanocobalamin (Vitamin B-12) 100 Mcg Tablet) 100 mcg PO DAILY [facility] Last Admin: 03/22/22 08:29 Dose: 100 mcg Documented by: Ferrous Sulfate (Ferrous Sulfate 324 Mg Tablet.Dr) 324 mg PO DAILY [facility] Last Admin: 03/22/22 10:07 Dose: 324 mg Documented by: Fluticasone/Vilanterol (Fluticasone/Vilanterol 200/25 Blst.W.Dev) 1 puff INHALE RDAILY [facility] Last Admin: 03/22/22 08:27 Dose: 1 puff Documented by: Gabapentin (Gabapentin 400 Mg Capsule) 400 mg PO TID [facility] Last Admin: 03/22/22 08:27 Dose: 400 mg Documented by: Hydroxyzine HCl (Hydroxyzine Hcl 50 Mg Tablet) 50 mg PO Q6H PRN PRN Reason: Itching Last Admin: 03/21/22 22:01 Dose: 50 mg Documented by: [place] Carbonate ([place] Carbonate 300 Mg Capsule) 600 mg PO BID [facility] Last Admin: 03/22/22 08:28 Dose: 600 mg Documented by: Magnesium Hydroxide (Milk Of Magnesia 30 Ml Oral.Susp) 30 ml PO DAILY PRN PRN Reason: Constipation Last Admin: 03/22/22 13:39 Dose: 30 ml Documented by: Nicotine (Nicotine 21 Mg Patch.Td24) 21 mg TRANSDERMA DAILY [facility] Last Admin: 03/22/22 10:03 Dose: 21 mg Documented by: Nicotine Polacrilex (Nicotine Polacrilex 2 Mg Gum) 4 mg BUCCAL Q2H PRN PRN Reason: Nicotine Cravings Olanzapine (Olanzapine 10 Mg Tablet) 10 mg PO BEDTIME [facility] Last Admin: 03/21/22 20:38 Dose: 10 mg Documented by: Omeprazole (Omeprazole 20 Mg Capsule.Dr) 20 mg PO DAILY@0630 [facility] Last Admin: 03/22/22 06:52 Dose: 20 mg Documented by: Oxcarbazepine (Oxcarbazepine 150 Mg Tablet) 150 mg PO BID [facility] Last Admin: 03/22/22 08:28 Dose: 150 mg Documented by: Ropinirole HCl (Ropinirole Hcl 0.5 Mg Tablet) 0.5 mg PO BEDTIME [facility] Last Admin: 03/21/22 20:38 Dose: 0.5 mg Documented by: Sertraline HCl (Sertraline Hcl 50 Mg Tablet) 50 mg PO DAILY [facility] Last Admin: 03/22/22 10:07 Dose: 50 mg Documented by: Tiotropium [place] (Tiotropium [place] 18 Mcg Cap.W.Dev) 1 puff INHALE RDAILY [facility] Last Admin: 03/22/22 08:27 Dose: 1 puff Documented by: Trazodone HCl (Trazodone Hcl 50 Mg Tablet) 50 mg PO BEDTIME PRN PRN Reason: Insomnia Last Admin: 03/21/22 22:01 Dose: 50 mg Documented by: Trazodone HCl (Trazodone Hcl 100 Mg Tablet) 200 mg PO BEDTIME [facility] Last Admin: 03/21/22 20:38 Dose: 200 mg Documented by: Valacyclovir HCl (Valacyclovir Hcl 1,000 Mg Tablet) 1,000 mg PO BID [facility] Last Admin: 03/22/22 08:29 Dose: 1,000 mg Documented by: Vitamin D (Cholecalciferol (Vitamin D3) 25 Mcg Tablet) 25 mcg PO DAILY [facility] Last Admin: 03/22/22 08:28 Dose: 25 mcg Documented by: Allergies Allergies Allergy/AdvReac Type Severity Reaction Status Date / Time aspirin [Aspirin] Allergy Severe HIVES,THROAT Verified 10/13/21 04:51 SWELLS bee pollen [BEE STINGS] Allergy Severe ANAPHYLAXIS Verified 10/13/21 04:51 diphenhydramine Allergy Severe hives, Verified 10/13/21 04:51 [From BENADRYL ALLERGY] throat swells Penicillins [PCN] Allergy Severe HIVES Verified 10/13/21 04:51 THROAT SWELLS Sulfa (Sulfonamide Allergy Intermediate HIVES Verified 10/13/21 04:51 Antibiotics) [SULFA (SULFONAMIDE ANTIBIOTICS)] tramadol [TRAMADOL] Allergy Intermediate ITCHING Verified 10/13/21 04:51 latex [LATEX] Allergy Unknown UNKNOWN Verified 10/13/21 04:51 penicillin G Allergy Unknown Unknown Verified 10/13/21 04:51 levofloxacin [From Levaquin] Allergy Hives Verified 10/13/21 04:51 hydroxyzine AdvReac Severe restless Verified 01/27/22 19:57 legs seafood AdvReac Stomach Verified 03/17/22 12:07 Upset bee stings Allergy Unknown Unknown Uncoded 10/13/21 04:51 DairyCare Allergy Unknown Unknown Uncoded 10/13/21 04:51 sulfa drugs Allergy Unknown Unknown Uncoded 10/13/21 04:51 Assessment & Plan Assessment & Plan (1) PTSD (post-traumatic stress disorder): Status: Acute Code(s): F43.10 - Post-traumatic stress disorder, unspecified Plan presents with depression, PTSD and psychosis and suicidal thoughts in the context of stressors and being off medications and substance misuse. Maintain restarted medications including gabapentin 400 mg 3 times per day, lithium 600 mg twice daily, clonidine 0.2 mg at bedtime, Zoloft 50 mg, olanz apine 10 mg, trazodone 200 mg, Trileptal 150 mg twice daily 03/21: clonidine 0.1mg prn for anxiety 03/22: much improved from admission. awaiting word from surgery re drainage of cyst. continue current mgmt otherwise. discharge tuesday. I spent ___25___ minutes with the patient and/or on the patient floor today, greater than?50% of which was spent counseling/coordinating care. Reason for contiued inpatient stay Substantial Risk for: harm to self, inability to function and rapid decompensation
[2022-03-22 18:00] VITALS: BP 153/83; PULSE 88; RESP 18; TEMP 36.8; O2SAT 92
[2022-03-22] MEDS: hydrOXYzine HCL 50 MG TABLET PO (19:44)
[2022-03-22] MEDS: cloNIDine HCL 0.1 MG TABLET PO (19:44)
[2022-03-22] MEDS: rOPINIRole HCL 0.5 MG TABLET PO (21:00)
[2022-03-22] MEDS: cloNIDine HCL 0.2 MG TABLET PO (21:00)
[2022-03-22] MEDS: OLANZapine 10 MG TABLET PO (21:00)
[2022-03-22] MEDS: traZODone HCL 100 MG TABLET 200 MG PO (21:01)
[2022-03-23] MEDS: Omeprazole 20 MG CAPSULE.DR PO (06:25)
[2022-03-23] MEDS: Ferrous Sulfate 324 MG TABLET.DR PO (09:03)
[2022-03-23] MEDS: Nicotine 21 MG PATCH.TD24 TRANSDERMA (09:03)
[2022-03-23] MEDS: Fluticasone/Vilanterol 200/25 BLST.W.DEV 1 PUFF INHALE (09:04)
[2022-03-23] MEDS: valACYclovir HCL 1,000 MG TABLET 1000 MG PO ×2 (09:04→20:29)
[2022-03-23] MEDS: Lithium Carbonate 300 MG CAPSULE 600 MG PO ×2 (09:05→20:29)
[2022-03-23] MEDS: OXcarbazepine 150 MG TABLET PO ×2 (09:05→20:29)
[2022-03-23] MEDS: Sertraline HCL 50 MG TABLET PO (09:05)
[2022-03-23] MEDS: Gabapentin 400 MG CAPSULE PO ×3 (09:05→20:29)
[2022-03-23] MEDS: Benztropine Mesylate 1 MG TABLET PO ×2 (09:06→20:29)
[2022-03-23] MEDS: Cholecalciferol (Vitamin D3) 25 MCG TABLET PO (09:06)
[2022-03-23] MEDS: Cyanocobalamin (Vitamin B-12) 100 MCG TABLET PO (09:06)
[2022-03-23 09:14] VITALS: BP 128/61; PULSE 85; RESP 18; TEMP 36.6; O2SAT 96
--- NOTE | 2022-03-23 14:53 | HO.PSYCHPN ---
Subjective Subjective Date of Service: 03/23/22 Reason For Visit: SI Interim History: pt calm, and cooperative, visible in milieu. meds reviewed, reconciled, and prescribed in anticipation of discharge tomorrow. reports she is sleeping well, mood good. i'm happy. per staff, slept well overnight. anx/dep 2/10. denies AH. denies SI. c/o foot pain. outbursts/yelling at peer. threatening violence toward peer. Mental Status Exam Mental Status Exam Narrative: seated at table in milieu. appropriately dressed and groomed. cooperative. no PMA/PMR. speech nml in amount, loudness, tone, rate, latency. thoughts linear and logical. affect full range normo-intense, non-labile. mood good. i'm happy. no SI/HI/AVH expressed. Diagnostics Vital Signs (24Hr): Vital Signs - 24 hr 03/22/22 18:00 03/23/22 09:14 Temperature 98.3 F 97.8 F Pulse Rate 88 85 Respiratory Rate 18 18 Blood Pressure 153/83 H 128/61 Pulse Oximetry 92 96 BMI result Body Mass Index 36.3 Labs Results: 03/17/22 12:09 03/17/22 12:09 Imaging Radiology Impressions: ITS Impressions Head/Neck Ultrasound 03/19/22 15:51 IMPRESSION: Mixed cystic and solid lesion left parotid gland suspicious for malignancy. Recommend further evaluation with MRI neck with attention to parotid gland or ultrasound-guided biopsy. Medications Medications Current Medications Acetaminophen (Acetaminophen 325 Mg Tablet) 650 mg PO Q6H PRN PRN Reason: Headache/Pain Mild Scale (1-3) Last Admin: 03/22/22 06:53 Dose: 650 mg Documented by: Al Hydroxide/Mg Hydroxide (Magnesium Hydrox/Alum Hydrox 30 Ml Oral.Susp) 30 ml PO Q6H PRN PRN Reason: Heartburn/Nausea Albuterol Sulfate (Albuterol Sulfate 90 Mcg 8 Gm Inhaler) 2 puff INHALE Q4H PRN PRN Reason: shortness of breath or wheezing Benzonatate (Benzonatate 100 Mg Capsule) 100 mg PO BID PRN PRN Reason: cough Benztropine Mesylate (Benztropine Mesylate 1 Mg Tablet) 1 mg PO BID [facility] Last Admin: 03/23/22 09:06 Dose: 1 mg Documented by: Capsaicin (Capsaicin 0.025% Cream 60 Gm Tube) 1 appl TOPICAL QID PRN; Protocol PRN Reason: leg pain Clonidine HCl (Clonidine Hcl 0.2 Mg Tablet) 0.2 mg PO BEDTIME [facility]; Protocol Last Admin: 03/22/22 21:00 Dose: 0.2 mg Documented by: Clonidine HCl (Clonidine Hcl 0.1 Mg Tablet) 0.1 mg PO TID PRN; Protocol PRN Reason: anxiety Last Admin: 03/22/22 19:44 Dose: 0.1 mg Documented by: Cyanocobalamin (Cyanocobalamin (Vitamin B-12) 100 Mcg Tablet) 100 mcg PO DAILY [facility] Last Admin: 03/23/22 09:06 Dose: 100 mcg Documented by: Ferrous Sulfate (Ferrous Sulfate 324 Mg Tablet.) 324 mg PO DAILY [facility] Last Admin: 03/23/22 09:03 Dose: 324 mg Documented by: Fluticasone/Vilanterol (Fluticasone/Vilanterol 200/25 Blst.W.Dev) 1 puff INHALE RDAILY [facility] Last Admin: 03/23/22 09:04 Dose: 1 puff Documented by: Gabapentin (Gabapentin 400 Mg Capsule) 400 mg PO TID [facility] Last Admin: 03/23/22 09:05 Dose: 400 mg Documented by: Hydroxyzine HCl (Hydroxyzine Hcl 50 Mg Tablet) 50 mg PO Q6H PRN PRN Reason: Itching Last Admin: 03/22/22 19:44 Dose: 50 mg Documented by: [place] Carbonate ([place] Carbonate 300 Mg Capsule) 600 mg PO BID [facility] Last Admin: 03/23/22 09:05 Dose: 600 mg Documented by: Magnesium Hydroxide (Milk Of Magnesia 30 Ml Oral.Susp) 30 ml PO DAILY PRN PRN Reason: Constipation Last Admin: 03/22/22 13:39 Dose: 30 ml Documented by: Nicotine (Nicotine 21 Mg Patch.Td24) 21 mg TRANSDERMA DAILY [facility] Last Admin: 03/23/22 09:03 Dose: 21 mg Documented by: Nicotine Polacrilex (Nicotine Polacrilex 2 Mg Gum) 4 mg BUCCAL Q2H PRN PRN Reason: Nicotine Cravings Olanzapine (Olanzapine 10 Mg Tablet) 10 mg PO BEDTIME [facility] Last Admin: 03/22/22 21:00 Dose: 10 mg Documented by: Omeprazole (Omeprazole 20 Mg Capsule.) 20 mg PO DAILY@0630 [facility] Last Admin: 03/23/22 06:25 Dose: 20 mg Documented by: Oxcarbazepine (Oxcarbazepine 150 Mg Tablet) 150 mg PO BID [facility] Last Admin: 03/23/22 09:05 Dose: 150 mg Documented by: Ropinirole HCl (Ropinirole Hcl 0.5 Mg Tablet) 0.5 mg PO BEDTIME [facility] Last Admin: 03/22/22 21:00 Dose: 0.5 mg Documented by: Sertraline HCl (Sertraline Hcl 50 Mg Tablet) 50 mg PO DAILY [facility] Last Admin: 03/23/22 09:05 Dose: 50 mg Documented by: Tiotropium [place] (Tiotropium [place] 18 Mcg Cap.W.Dev) 1 puff INHALE RDAILY [facility] Last Admin: 03/23/22 12:06 Dose: 1 puff Documented by: Trazodone HCl (Trazodone Hcl 50 Mg Tablet) 50 mg PO BEDTIME PRN PRN Reason: Insomnia Last Admin: 03/21/22 22:01 Dose: 50 mg Documented by: Trazodone HCl (Trazodone Hcl 100 Mg Tablet) 200 mg PO BEDTIME [facility] Last Admin: 03/22/22 21:01 Dose: 200 mg Documented by: Valacyclovir HCl (Valacyclovir Hcl 1,000 Mg Tablet) 1,000 mg PO BID [facility] Last Admin: 03/23/22 09:04 Dose: 1,000 mg Documented by: Vitamin D (Cholecalciferol (Vitamin D3) 25 Mcg Tablet) 25 mcg PO DAILY [facility] Last Admin: 03/23/22 09:06 Dose: 25 mcg Documented by: Allergies Allergies Allergy/AdvReac Type Severity Reaction Status Date / Time aspirin [Aspirin] Allergy Severe HIVES,THROAT Verified 10/13/21 04:51 SWELLS bee pollen [BEE STINGS] Allergy Severe ANAPHYLAXIS Verified 10/13/21 04:51 diphenhydramine Allergy Severe hives, Verified 10/13/21 04:51 [From BENADRYL ALLERGY] throat swells Penicillins [PCN] Allergy Severe HIVES Verified 10/13/21 04:51 THROAT SWELLS Sulfa (Sulfonamide Allergy Intermediate HIVES Verified 10/13/21 04:51 Antibiotics) [SULFA (SULFONAMIDE ANTIBIOTICS)] tramadol [TRAMADOL] Allergy Intermediate ITCHING Verified 10/13/21 04:51 latex [LATEX] Allergy Unknown UNKNOWN Verified 10/13/21 04:51 penicillin G Allergy Unknown Unknown Verified 10/13/21 04:51 levofloxacin [From Levaquin] Allergy Hives Verified 10/13/21 04:51 hydroxyzine AdvReac Severe restless Verified 01/27/22 19:57 legs seafood AdvReac Stomach Verified 03/17/22 12:07 Upset bee stings Allergy Unknown Unknown Uncoded 10/13/21 04:51 DairyCare Allergy Unknown Unknown Uncoded 10/13/21 04:51 sulfa drugs Allergy Unknown Unknown Uncoded 10/13/21 04:51 Assessment & Plan Assessment & Plan (1) PTSD (post-traumatic stress disorder): Status: Acute Code(s): F43.10 - Post-traumatic stress disorder, unspecified Plan presents with depression, PTSD and psychosis and suicidal thoughts in the context of stressors and being off medications and substance misuse. Maintain restarted medications including gabapentin 400 mg 3 times per day, lithium 600 mg twice daily, clonidine 0.2 mg at bedtime, Zoloft 50 mg, olanzapine 10 mg, trazodone 200 mg, Trileptal 150 mg twice daily 03/21: clonidine 0.1mg prn for anxiety 03/22: much improved from admission. awaiting word from surgery re drainage of cyst. continue current mgmt otherwise. discharge tuesday. 03/23: discharge tomorrow. pt to F/U with neck cyst at [facility]. I spent ___25___ minutes with the patient and/or on the patient floor today, greater than?50% of which was spent counseling/coordinating care. Reason for contiued inpatient stay Substantial Risk for: inability to function and rapid decompensation
[2022-03-23] MEDS: Lidocaine HCl 1 % MPF 5 ML VIAL SUBCUT (16:05)
[2022-03-23] MEDS: Acetaminophen 325 MG TABLET 650 MG PO (16:20)
[2022-03-23 16:27] VITALS: BP 135/65; PULSE 78; RESP 18; O2SAT 96
--- NOTE | 2022-03-23 16:28 | PC.NURSE ---
Late entry: Patient to ultrasound at approximately 1510, returned at approx 1540. Bandaid dry, intact to left ear. Patient given acetaminophen for report of 08/09.
[2022-03-23] MEDS: cloNIDine HCL 0.2 MG TABLET PO (20:28)
[2022-03-23 20:29] VITALS: BP 123/59; PULSE 86; RESP 18; TEMP 36.8; O2SAT 95
[2022-03-23] MEDS: rOPINIRole HCL 0.5 MG TABLET PO (20:29)
[2022-03-23] MEDS: OLANZapine 10 MG TABLET PO (20:29)
[2022-03-23] MEDS: traZODone HCL 50 MG TABLET PO (20:29)
[2022-03-23] MEDS: traZODone HCL 100 MG TABLET 200 MG PO (20:30)
[2022-03-24] MEDS: Acetaminophen 325 MG TABLET 650 MG PO (04:05)
[2022-03-24] MEDS: Omeprazole 20 MG CAPSULE.DR PO (06:47)
[2022-03-24] MEDS: Capsaicin 0.025% Cream 60 GM TUBE 1 APPL TOPICAL (06:47)
[2022-03-24] MEDS: Fluticasone/Vilanterol 200/25 BLST.W.DEV 1 PUFF INHALE (08:00)
[2022-03-24] MEDS: Ferrous Sulfate 324 MG TABLET.DR PO (08:01)
[2022-03-24] MEDS: Gabapentin 400 MG CAPSULE PO (08:01)
[2022-03-24] MEDS: Lithium Carbonate 300 MG CAPSULE 600 MG PO (08:01)
[2022-03-24] MEDS: Sertraline HCL 50 MG TABLET PO (08:02)
[2022-03-24] MEDS: Cyanocobalamin (Vitamin B-12) 100 MCG TABLET PO (08:02)
[2022-03-24] MEDS: valACYclovir HCL 1,000 MG TABLET 1000 MG PO (08:02)
[2022-03-24] MEDS: Benztropine Mesylate 1 MG TABLET PO (08:02)
[2022-03-24] MEDS: OXcarbazepine 150 MG TABLET PO (08:02)
[2022-03-24] MEDS: Cholecalciferol (Vitamin D3) 25 MCG TABLET PO (08:02)
[2022-03-24 08:13] VITALS: BP 110/70; PULSE 89; RESP 17; TEMP 36.8; O2SAT 96
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
== END 2022-03-24 11:03 | disposition home or self-care (01) | DRG 755 ==
LOC: HO.ED 16:53 → HO.PADLT16 23:40
PROVIDERS: Emergency Medicine; Radiology Diagnostic Radiology; Admitting Provider Psychiatry & Neurology Psychiatry; Emergency Provider Internal Medicine; Visit Provider Psychiatry & Neurology Psychiatry
PROC: 0CB93ZX Excision of Left Parotid Gland, Percutaneous Approach, Diagnostic (ICD-10-PCS; principal; 2022-03-23 15:00)
DX: F43.12 Post-traumatic stress disorder, chronic (principal); R45.851 Suicidal ideations; Z91.14 Patient's other noncompliance with medication regimen; F17.210 Nicotine dependence, cigarettes, uncomplicated; K11.8 Other diseases of salivary glands; J44.9 Chronic obstructive pulmonary disease, unspecified; G47.33 Obstructive sleep apnea (adult) (pediatric); Z20.822 Contact with and (suspected) exposure to COVID-19; Z71.6 Tobacco abuse counseling; Z91.040 Latex allergy status; Z91.030 Bee allergy status; Z87.892 Personal history of anaphylaxis; Z88.0 Allergy status to penicillin; Z88.2 Allergy status to sulfonamides; Z88.6 Allergy status to analgesic agent; Z88.8 Allergy status to other drugs, medicaments and biological substances; Z79.899 Other long term (current) drug therapy
CPT/HCPCS: 36415; 42400; 76536; 80053; 80307; 85025; 87635; 88172; 88173; 88177; 88305; 93005; 99285

== ENCOUNTER 2022-03-30 22:36 | Emergency (ER) | payer MEDICAID, SELFPAY ==
[2022-03-30 22:41] VITALS: BP 127/71; PULSE 111; RESP 20; TEMP 36.5; O2SAT 90; BMI 39.5
[2022-03-30 23:01] LABS: Appearance Urine CLOUDY; Color Urine DK YELLOW; Glucose Urine UA NEG (NEG); Leukocyte Esterase Urine 1+ (NEG); Nitrite Urine NEG (NEG); PH 5.5 (5.0-8.0); Specific Gravity - Urine >= 1.030 (1.005-1.025); Urine Blood NEG (NEG); Urine Ketones 5 MG/DL (NEG); Urine Protein 1+ MG/DL (NEG-TRACE)
--- NOTE | 2022-03-30 23:01 | ED_ITS ---
HPI - Psych General Chief Complaint: Psychiatric Symptoms <Sonia Hendrix MD - Last Filed: 03/31/22 03:19> Stated Complaint: Crisis <Sonia Hendrix MD - Last Filed: 03/31/22 03:19> Time Seen by Provider: 03/30/22 23:01 <Sonia Hendrix MD - Last Filed: 03/31/22 03:19> Source: EMS <Sonia Hendrix MD - Last Filed: 03/31/22 03:19> Mode of arrival: EMS <Sonia Hendrix MD - Last Filed: 03/31/22 03:19> History of Present Illness HPI Narrative: 52-year-old female with longstanding history psychiatric as well as polysubstance use is brought in by EMS after she had complaints of suicidal ideation with reports of having a plan to jump off the bridge. Patient states that she used cocaine prior to arrival. In the field, patient was noted to have been ?not making sense? and so the behavioral team was unable to further evaluat e the patient and will see her in the hospital. At this time patient is experiencing hallucinations and unable to obtain further history from her. <Sonia Hendrix MD - Last Filed: 03/31/22 03:19> Related Data Home Medications: Previous Rx's Medication Instructions Recorded albuterol sulfate 90 mcg/actuation 2 puff INHALATION Q4-6H PRN 30 03/23/22 aerosol inhaler Days #1 inhaler benztropine 1 mg tablet 1 mg PO BID 30 Days #60 tab 03/23/22 capsaicin 0.025 % topical cream 1 appl TOPICAL QID PRN 30 Days 03/23/22 #100 g cholecalciferol (vitamin D3) 25 25 mcg PO DAILY 30 Days #30 tab 03/23/22 mcg (1,000 unit) tablet clonidine HCl 0.2 mg tablet 0.2 mg PO BEDTIME 30 Days #30 tab 03/23/22 cyanocobalamin (vitamin B-12) 100 100 mcg PO DAILY 30 Days #30 tab 03/23/22 mcg tablet (Vitamin B-12) ferrous sulfate 324 mg (65 mg 324 mg PO DAILY 30 Days #30 tab 03/23/22 iron) tablet,delayed release fluticasone furoate 200 1 puff INHALATION RDAILY 30 Days 03/23/22 mcg-vilanterol 25 mcg/dose #1 ea inhalation powder (Breo Ellipta) gabapentin 400 mg capsule 400 mg PO TID 30 Days #90 cap 03/23/22 lithium carbonate 300 mg capsule 600 mg PO BID 30 Days #120 cap 03/23/22 olanzapine 10 mg tablet 10 mg PO BEDTIME 30 Days #30 tab 03/23/22 omeprazole 20 mg capsule,delayed 20 mg PO DAILY@0630 30 Days #30 cap 03/23/22 release oxcarbazepine 150 mg tablet 150 mg PO BID 30 Days #60 tab 03/23/22 ropinirole 0.5 mg tablet 0.5 mg PO BEDTIME 30 Days #30 tab 03/23/22 sertraline 50 mg tablet 50 mg PO DAILY 30 Days #30 tab 03/23/22 tiotropium bromide 18 mcg capsule 1 puff INHALATION RDAILY 30 Days 03/23/22 with inhalation device (Spiriva #1 inhaler with HandiHaler) trazodone 100 mg tablet 200 mg PO BEDTIME 30 Days #60 tab 03/23/22 valacyclovir 1 gram tablet 1,000 mg PO BID 30 Days #60 tab 03/23/22 <Sonia Hendrix MD - Last Filed: 03/31/22 03:19> Allergies/Adverse Reactions: Allergies Allergy/AdvReac Type Severity Reaction Status Date / Time aspirin [Aspirin] Allergy Severe HIVES,THROAT Verified 10/13/21 04:51 SWELLS bee pollen [BEE STINGS] Allergy Severe ANAPHYLAXIS Verified 10/13/21 04:51 diphenhydramine Allergy Severe hives, Verified 10/13/21 04:51 [From BENADRYL ALLERGY] throat swells Penicillins [PCN] Allergy Severe HIVES Verified 10/13/21 04:51 THROAT SWELLS Sulfa (Sulfonamide Allergy Intermediate HIVES Verified 10/13/21 04:51 Antibiotics) [SULFA (SULFONAMIDE ANTIBIOTICS)] tramadol [TRAMADOL] Allergy Intermediate ITCHING Verified 10/13/21 04:51 latex [LATEX] Allergy Unknown UNKNOWN Verified 10/13/21 04:51 penicillin G Allergy Unknown Unknown Verified 10/13/21 04:51 levofloxacin [From Levaquin] Allergy Hives Verified 10/13/21 04:51 hydroxyzine AdvReac Severe restless Verified 01/27/22 19:57 legs seafood AdvReac Stomach Verified 03/17/22 12:07 Upset bee stings Allergy Unknown Unknown Uncoded 10/13/21 04:51 DairyCare Allergy Unknown Unknown Uncoded 10/13/21 04:51 sulfa drugs Allergy Unknown Unknown Uncoded 10/13/21 04:51 <Sonia Hendrix MD - Last Filed: 03/31/22 03:19> Review of Systems Review of Systems: Yes Unobtainable due to mental condition <Sonia Hendrix MD - Last Filed: 03/31/22 03:19> [facility] Past Medical History Medical History: Medical History Asthma exacerbation in COPD Bipolar disorder Bipolar I disorder Borderline personality disorder Borderline personality disorder COPD (chronic obstructive pulmonary disease) Depression Depression Drug abuse Herpes Intermittent explosive disorder Mass of parotid gland FABIOLA (obstructive sleep apnea) Parotid mass Post traumatic stress disorder (PTSD) PTSD (post-traumatic stress disorder) PTSD (post-traumatic stress disorder) Tobacco use <Sonia Hendrix MD - Last Filed: 03/31/22 03:19> Surgical History: Surgical History History of ankle surgery History of appendectomy History of back surgery Hx of cholecystectomy <Sonia Hendrix MD - Last Filed: 03/31/22 03:19> Family History Family History: Family History Mother COPD (chronic obstructive pulmonary disease) <Sonia Hendrix MD - Last Filed: 03/31/22 03:19> Social History Social History: Social History Household Members: None 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 Members Other:: 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 [place] Housing: Homeless Housing Other:: will be getting apartment 07/01 Do you presently have visiting nurse or other home services: No Unable to assess alcohol history related to: Unknown Alcohol intake: never Patient Tobacco Use Status: Current everyday Tobacco user Tobacco use type: Cigarette Cigarette Packs Per Day: 1 Cigarettes Per Day: 20.0 Years Smoked: 38 e-Cigarette/Vaping Use: Never Used Second Hand Smoke Exposure: Yes Substance Use Type: Crack/Cocaine Advance Directives: Yes Advance Directives on File: Yes Advance Directives Date on File: 12/24/20 service: No Current occupational status: unemployed and disabled Sexual orientation: Don't Know <Sonia Hendrix MD - Last Filed: 03/31/22 03:19> Physical Exam Vital Signs: Vital Signs: Last Vital Signs Temp 98.4 F 03/31/22 01:11 Pulse 89 03/31/22 01:11 Resp 20 03/31/22 01:11 BP 139/89 03/31/22 01:11 Pulse Ox 94 03/31/22 01:11 BMI result Body Mass Index 39.5 VITAL SIGNS: Reviewed. GENERAL: Elevated BMI, Well developed, well nourished, in no acute distress. HEAD: Normocephalic/atraumatic EYES: PERRLA, EOMI EARS: Ext canals without abnormality OROPHARYNX: no oral lesions noted, posterior pharynx clear LUNGS: Normal breath sounds. No adventitious sounds or accessory muscle use. SpO2<90> room air, history COPD CARDIOVASCULAR: Regular rate and rhythm without noted murmurs, no JVD or lower extremity edema. ABDOMEN: Soft, non-tender, non-distended with bowel sounds. MUSCULOSKELETAL: No tenderness, deformities, or effusions noted on gross inspection. EXTREMITIES: No cyanosis, clubbing or edema. SKIN: Inspection of the skin reveals no rashes NEUROLOGIC: Alert and oriented x 4. Strength and sensation to light touch were grossly intact x 4, cranial nerves 2-12 grossly intact. PSYCH: Currently experiencing hallucinations, tearful <Sonia Hendrix MD - Last Filed: 03/31/22 03:19> Vital Signs: Last Vital Signs Temp 98.4 F 03/31/22 01:11 Pulse 89 03/31/22 01:11 Resp 03/31/22 01:11 BP 139/89 03/31/22 01:11 Pulse Ox 94 03/31/22 01:11 BMI result Body Mass Index 39.5 <LASHONDA Coppola - Last Filed: 03/31/22 02:56> Course Course Course Narrative: 52-year-old female with history and clinical presentation consistent drug related symptoms and likely the cocaine that patient used contained additional illicit substances. Will obtain basic labs and otherwise await the evaluation of the behavioral team. Review of all investigations without acute findings other than the presence of cocaine. Patient is otherwise medically cleared for further evaluation. <Sonia Hendrix MD - Last Filed: 03/31/22 03:19> Reevaluation(s) Reevaluation #1: Diagnosis major depressive disorder with psychotic features, patient placed on a [facility] by [facility]. She will be an inpatient bed search. <LASHONDA Coppola - Last Filed: 03/31/22 02:56> Time: 02:56 <LASHONDA Coppola - Last Filed: 03/31/22 02:56> Reevaluation #2: Patient placed in physician observation because the patient needed more time for evaluation by the behavioral team. At the time observation was started the patient's vital signs were stable, patient is alert and oriented but slightly agitated, neuro: Nonfocal, CV RRR, lungs clear <Sonia Hendrix MD - Last Filed: 03/31/22 03:19> Time: 03:18 <Sonia Hendrix MD - Last Filed: 03/31/22 03:19> MDM - Psych Lab Data Result diagrams: : 03/31/22 02:38 03/31/22 01:07 <Sonia Hendrix MD - Last Filed: 03/31/22 03:19> Labs: Lab Results 03/30/22 03/30/22 03/30/22 Range/Units 22:51 22:51 22:51 WBC (4.8-10.8) X10*3/uL RBC (4.20-5.50) X10*6/uL Hgb (12.0-16.0) g/dl Hct (37.0-47.0) % MCV (80.0-98.0) fL MCH (27.0-33.0) pg MCHC (31.0-35.0) g/dl RDW (11.0-16.0) % Plt Count (160-400) X10*3/uL MPV (9.4-12.3) fL Immature Gran % (Auto) (0.0-0.4) % Neut % (Auto) (45-73) % Lymph % (Auto) (20-40) % [place] % (Auto) (2-11) % Eos % (Auto) (0-4) % Baso % (Auto) (0-2) % Lymph # (Auto) (1.2-4.9) X10*3/uL [place] # (Auto) (0.1-1.2) X10*3/uL Eos # (Auto) (0.0-0.4) X10*3/uL Baso # (Auto) (0.0-0.2) X10*3/uL Abs Immat Gran (auto) (0.00-0.03) X10*3/uL Absolute Neuts (auto) (2.0-8.3) x10*3/uL Absolute Nucleated RBC (0.0-0.012) X10*3/uL Nucleated RBC % (auto) (0.0-0.2) /100WBC VBG pH (7.32-7.43) VBG pCO2 mmHg VBG pO2 mmHg VBG HCO3 (22-26) mmol/L VBG O2 Saturation % VBG Base Excess mmol/L Sodium (135-145) mmol/L Potassium (3.3-5.1) mmol/L Chloride (96-108) mmol/L Carbon Dioxide (22-29) mmol/L Anion Gap (12-20) BUN (9-16) mg/dL Creatinine (0.5-1.4) mg/dL Estim Creat Clear Calc Estimated GFR Random Glucose (60-115) mg/dL Calcium (8.4-10.2) mg/dL Total Bilirubin (0.0-1.0) mg/dL AST (5-31) U/L ALT (0-31) U/L Alkaline Phosphatase (39-117) U/L Total Protein (6.5-8.0) g/dL Albumin (3.5-5.0) g/dL Urine Color DK YELLOW Urine Appearance CLOUDY Urine pH 5.5 (5.0-8.0) Ur Specific [place] >= 1.030 H (1.005-1.025) Urine Protein 1+ H (NEG-TRACE) MG/DL Urine Glucose (UA) NEG (NEG) MG/DL Urine Ketones 5 (NEG) MG/DL Urine Blood NEG (NEG) Urine Nitrite NEG (NEG) Ur Leukocyte Esterase 1+ H (NEG) Urine RBC 1-4 (0) /HPF Urine WBC 10-14 H (0-4) /HPF Ur Squamous Epith Cells 2+ /LPF Urine Bacteria 3+ /LPF Hyaline Casts 10-14 /LPF Granular Casts 0-2 /LPF Urine Mucus 2+ /LPF Urine Trichomonas NOTED Urine Opiates Screen Not Detected (Not Detect) Urine Fentanyl Screen Not Detected (Not Detect) Ur Barbiturates Screen Not Detected (Not Detect) Ur Phencyclidine Scrn Not Detected (Not Detect) Ur Amphetamines Screen Not Detected (Not Detect) U Benzodiazepines Scrn Not Detected (Not Detect) [place] (0.60-1.20) mmol/L Urine Cocaine Screen POSITIVE H (Not Detect) U Marijuana (THC) Screen Not Detected (Not Detect) Ethyl Alcohol mg/dL COVID-19 (ENDY) Negative (Negative) COVID-19 Clin Com See Note 03/31/22 03/31/22 03/31/22 Range/Units 01:07 01:07 01:07 WBC (4.8-10.8) X10*3/uL RBC (4.20-5.50) X10*6/uL Hgb (12.0-16.0) g/dl Hct (37.0-47.0) % MCV (80.0-98.0) fL MCH (27.0-33.0) pg MCHC (31.0-35.0) g/dl RDW (11.0-16.0) % Plt Count (160-400) X10*3/uL MPV (9.4-12.3) fL Immature Gran % (Auto) (0.0-0.4) % Neut % (Auto) (45-73) % Lymph % (Auto) (20-40) % [place] % (Auto) (2-11) % Eos % (Auto) (0-4) % Baso % (Auto) (0-2) % Lymph # (Auto) (1.2-4.9) X10*3/uL [place] # (Auto) (0.1-1.2) X10*3/uL Eos # (Auto) (0.0-0.4) X10*3/uL Baso # (Auto) (0.0-0.2) X10*3/uL Abs Immat Gran (auto) (0.00-0.03) X10*3/uL Absolute Neuts (auto) (2.0-8.3) x10*3/uL Absolute Nucleated RBC (0.0-0.012) X10*3/uL Nucleated RBC % (auto) (0.0-0.2) /100WBC VBG pH (7.32-7.43) VBG pCO2 mmHg VBG pO2 mmHg VBG HCO3 (22-26) mmol/L VBG O2 Saturation % VBG Base Excess mmol/L Sodium 141 (135-145) mmol/L Potassium 3.6 (3.3-5.1) mmol/L Chloride 105 (96-108) mmol/L Carbon Dioxide 25 (22-29) mmol/L Anion Gap 15 (12-20) BUN 13 (9-16) mg/dL Creatinine 0.90 (0.5-1.4) mg/dL Estim Creat Clear Calc 93.4 Estimated GFR > 60 Random Glucose 123 H (60-115) mg/dL Calcium 9.8 (8.4-10.2) mg/dL Total Bilirubin 0.2 (0.0-1.0) mg/dL AST 18 D (5-31) U/L ALT 35 H (0-31) U/L Alkaline Phosphatase 77 (39-117) U/L Total Protein 7.1 (6.5-8.0) g/dL Albumin 4.5 (3.5-5.0) g/dL Urine Color Urine Appearance Urine pH (5.0-8.0) Ur Specific [place] (1.005-1.025) Urine Protein (NEG-TRACE) MG/DL Urine Glucose (UA) (NEG) MG/DL Urine Ketones (NEG) MG/DL Urine Blood (NEG) Urine Nitrite (NEG) Ur Leukocyte Esterase (NEG) Urine RBC (0) /HPF Urine WBC (0-4) /HPF Ur Squamous Epith Cells /LPF Urine Bacteria /LPF Hyaline Casts /LPF Granular Casts /LPF Urine Mucus /LPF Urine Trichomonas Urine Opiates Screen (Not Detect) Urine Fentanyl Screen (Not Detect) Ur Barbiturates Screen (Not Detect) Ur Phencyclidine Scrn (Not Detect) Ur Amphetamines Screen (Not Detect) U Benzodiazepines Scrn (Not Detect) [place] < 0.10 L (0.60-1.20) mmol/L Urine Cocaine Screen (Not Detect) U Marijuana (THC) Screen (Not Detect) Ethyl Alcohol < 10 mg/dL COVID-19 (ENDY) (Negative) COVID-19 Clin [facility] 03/31/22 03/31/22 Range/Units 02:38 02:39 WBC 9.8 (4.8-10.8) X10*3/uL RBC 4.19 L (4.20-5.50) X10*6/uL Hgb 12.5 (12.0-16.0) g/dl Hct 39.0 (37.0-47.0) % MCV 93.1 (80.0-98.0) fL MCH 29.8 (27.0-33.0) pg MCHC 32.1 (31.0-35.0) g/dl RDW 13.1 (11.0-16.0) % Plt Count 252 (160-400) X10*3/uL MPV 9.4 (9.4-12.3) fL Immature Gran % (Auto) 0.3 (0.0-0.4) % Neut % (Auto) 62.9 (45-73) % Lymph % (Auto) 28.6 (20-40) % [place] % (Auto) 7.1 (2-11) % Eos % (Auto) 0.5 (0-4) % Baso % (Auto) 0.6 (0-2) % Lymph # (Auto) 2.8 (1.2-4.9) X10*3/uL [place] # (Auto) 0.7 (0.1-1.2) X10*3/uL Eos # (Auto) 0.1 (0.0-0.4) X10*3/uL Baso # (Auto) 0.1 (0.0-0.2) X10*3/uL Abs Immat Gran (auto) 0.03 (0.00-0.03) X10*3/uL Absolute Neuts (auto) 6.1 (2.0-8.3) x10*3/uL Absolute Nucleated RBC 0.000 (0.0-0.012) X10*3/uL Nucleated RBC % (auto) 0.0 (0.0-0.2) /100WBC VBG pH 7.36 (7.32-7.43) VBG pCO2 44 mmHg VBG pO2 99 mmHg VBG HCO3 25 (22-26) mmol/L VBG O2 Saturation 99.0 % VBG Base Excess -0.2 mmol/L Sodium (135-145) mmol/L Potassium (3.3-5.1) mmol/L Chloride (96-108) mmol/L Carbon Dioxide (22-29) mmol/L Anion Gap (12-20) BUN (9-16) mg/dL Creatinine (0.5-1.4) mg/dL Estim Creat Clear Calc Estimated GFR Random Glucose (60-115) mg/dL Calcium (8.4-10.2) mg/dL Total Bilirubin (0.0-1.0) mg/dL AST (5-31) U/L ALT (0-31) U/L Alkaline Phosphatase (39-117) U/L Total Protein (6.5-8.0) g/dL Albumin (3.5-5.0) g/dL Urine Color Urine Appearance Urine pH (5.0-8.0) Ur Specific [place] (1.005-1.025) Urine Protein (NEG-TRACE) MG/DL Urine Glucose (UA) (NEG) MG/DL Urine Ketones (NEG) MG/DL Urine Blood (NEG) Urine Nitrite (NEG) Ur Leukocyte Esterase (NEG) Urine RBC (0) /HPF Urine WBC (0-4) /HPF Ur Squamous Epith Cells /LPF Urine Bacteria /LPF Hyaline Casts /LPF Granular Casts /LPF Urine Mucus /LPF Urine Trichomonas Urine Opiates Screen (Not Detect) Urine Fentanyl Screen (Not Detect) Ur Barbiturates Screen (Not Detect) Ur Phencyclidine Scrn (Not Detect) Ur Amphetamines Screen (Not Detect) U Benzodiazepines Scrn (Not Detect) [place] (0.60-1.20) mmol/L Urine Cocaine Screen (Not Detect) U Marijuana (THC) Screen (Not Detect) Ethyl Alcohol mg/dL COVID-19 (ENDY) (Negative) COVID-19 Clin Com <Sonia Hendrix MD - Last Filed: 03/31/22 03:19> Lab Results 03/30/22 03/30/22 03/30/22 Range/Units 22:51 22:51 22:51 WBC (4.8-10.8) X10*3/uL RBC (4.20-5.50) X10*6/uL Hgb (12.0-16.0) g/dl Hct (37.0-47.0) % MCV (80.0-98.0) fL MCH (27.0-33.0) pg MCHC (31.0-35.0) g/dl RDW (11.0-16.0) % Plt Count (160-400) X10*3/uL MPV (9.4-12.3) fL Immature Gran % (Auto) (0.0-0.4) % Neut % (Auto) (45-73) % Lymph % (Auto) (20-40) % [place] % (Auto) (2-11) % Eos % (Auto) (0-4) % Baso % (Auto) (0-2) % Lymph # (Auto) (1.2-4.9) X10*3/uL [place] # (Auto) (0.1-1.2) X10*3/uL Eos # (Auto) (0.0-0.4) X10*3/uL Baso # (Auto) (0.0-0.2) X10*3/uL Abs Immat Gran (auto) (0.00-0.03) X10*3/uL Absolute Neuts (auto) (2.0-8.3) x10*3/uL Absolute Nucleated RBC (0.0-0.012) X10*3/uL Nucleated RBC % (auto) (0.0-0.2) /100WBC VBG pH (7.32-7.43) VBG pCO2 mmHg VBG pO2 mmHg VBG HCO3 (22-26) mmol/L VBG O2 Saturation % VBG Base Excess mmol/L Sodium (135-145) mmol/L Potassium (3.3-5.1) mmol/L Chloride (96-108) mmol/L Carbon Dioxide (22-29) mmol/L Anion Gap (12-20) BUN (9-16) mg/dL Creatinine (0.5-1.4) mg/dL Estim Creat Clear Calc Estimated GFR Random Glucose (60-115) mg/dL Calcium (8.4-10.2) mg/dL Total Bilirubin (0.0-1.0) mg/dL AST (5-31) U/L ALT (0-31) U/L Alkaline Phosphatase (39-117) U/L Total Protein (6.5-8.0) g/dL Albumin (3.5-5.0) g/dL Urine Color DK YELLOW Urine Appearance CLOUDY Urine pH 5.5 (5.0-8.0) Ur Specific [place] >= 1.030 H (1.005-1.025) Urine Protein 1+ H (NEG-TRACE) MG/DL Urine Glucose (UA) NEG (NEG) MG/DL Urine Ketones 5 (NEG) MG/DL Urine Blood NEG (NEG) Urine Nitrite NEG (NEG) Ur Leukocyte Esterase 1+ H (NEG) Urine RBC 1-4 (0) /HPF Urine WBC 10-14 H (0-4) /HPF Ur Squamous Epith Cells 2+ /LPF Urine Bacteria 3+ /LPF Hyaline Casts 10-14 /LPF Granular Casts 0-2 /LPF Urine Mucus 2+ /LPF Urine Trichomonas NOTED Urine Opiates Screen Not Detected (Not Detect) Urine Fentanyl Screen Not Detected (Not Detect) Ur Barbiturates Screen Not Detected (Not Detect) Ur Phencyclidine Scrn Not Detected (Not Detect) Ur Amphetamines Screen Not Detected (Not Detect) U Benzodiazepines Scrn Not Detected (Not Detect) [place] (0.60-1.20) mmol/L Urine Cocaine Screen POSITIVE H (Not Detect) U Marijuana (THC) Screen Not Detected (Not Detect) Ethyl Alcohol mg/dL COVID-19 (ENDY) Negative (Negative) COVID-19 Clin Com See Note 03/31/22 03/31/22 03/31/22 Range/Units 01:07 01:07 01:07 WBC (4.8-10.8) X10*3/uL RBC (4.20-5.50) X10*6/uL Hgb (12.0-16.0) g/dl Hct (37.0-47.0) % MCV (80.0-98.0) fL MCH (27.0-33.0) pg MCHC (31.0-35.0) g/dl RDW (11.0-16.0) % Plt Count (160-400) X10*3/uL MPV (9.4-12.3) fL Immature Gran % (Auto) (0.0-0.4) % Neut % (Auto) (45-73) % Lymph % (Auto) (20-40) % [place] % (Auto) (2-11) % Eos % (Auto) (0-4) % Baso % (Auto) (0-2) % Lymph # (Auto) (1.2-4.9) X10*3/uL [place] # (Auto) (0.1-1.2) X10*3/uL Eos # (Auto) (0.0-0.4) X10*3/uL Baso # (Auto) (0.0-0.2) X10*3/uL Abs Immat Gran (auto) (0.00-0.03) X10*3/uL Absolute Neuts (auto) (2.0-8.3) x10*3/uL Absolute Nucleated RBC (0.0-0.012) X10*3/uL Nucleated RBC % (auto) (0.0-0.2) /100WBC VBG pH (7.32-7.43) VBG pCO2 mmHg VBG pO2 mmHg VBG HCO3 (22-26) mmol/L VBG O2 Saturation % VBG Base Excess mmol/L Sodium 141 (135-145) mmol/L Potassium 3.6 (3.3-5.1) mmol/L Chloride 105 (96-108) mmol/L Carbon Dioxide 25 (22-29) mmol/L Anion Gap 15 (12-20) BUN 13 (9-16) mg/dL Creatinine 0.90 (0.5-1.4) mg/dL Estim Creat Clear Calc 93.4 Estimated GFR > 60 Random Glucose 123 H (60-115) mg/dL Calcium 9.8 (8.4-10.2) mg/dL Total Bilirubin 0.2 (0.0-1.0) mg/dL AST 18 D (5-31) U/L ALT 35 H (0-31) U/L Alkaline Phosphatase 77 (39-117) U/L Total Protein 7.1 (6.5-8.0) g/dL Albumin 4.5 (3.5-5.0) g/dL Urine Color Urine Appearance Urine pH (5.0-8.0) Ur Specific [place] (1.005-1.025) Urine Protein (NEG-TRACE) MG/DL Urine Glucose (UA) (NEG) MG/DL Urine Ketones (NEG) MG/DL Urine Blood (NEG) Urine Nitrite (NEG) Ur Leukocyte Esterase (NEG) Urine RBC (0) /HPF Urine WBC (0-4) /HPF Ur Squamous Epith Cells /LPF Urine Bacteria /LPF Hyaline Casts /LPF Granular Casts /LPF Urine Mucus /LPF Urine Trichomonas Urine Opiates Screen (Not Detect) Urine Fentanyl Screen (Not Detect) Ur Barbiturates Screen (Not Detect) Ur Phencyclidine Scrn (Not Detect) Ur Amphetamines Screen (Not Detect) U Benzodiazepines Scrn (Not Detect) [place] < 0.10 L (0.60-1.20) mmol/L Urine Cocaine Screen (Not Detect) U Marijuana (THC) Screen (Not Detect) Ethyl Alcohol < 10 mg/dL COVID-19 (ENDY) (Negative) COVID-19 Clin Com 03/31/22 03/31/22 Range/Units 02:38 02:39 WBC 9.8 (4.8-10.8) X10*3/uL RBC 4.19 L (4.20-5.50) X10*6/uL Hgb 12.5 (12.0-16.0) g/dl Hct 39.0 (37.0-47.0) % MCV 93.1 (80.0-98.0) fL MCH 29.8 (27.0-33.0) pg MCHC 32.1 (31.0-35.0) g/dl RDW 13.1 (11.0-16.0) % Plt Count 252 (160-400) X10*3/uL MPV 9.4 (9.4-12.3) fL Immature Gran % (Auto) 0.3 (0.0-0.4) % Neut % (Auto) 62.9 (45-73) % Lymph % (Auto) 28.6 (20-40) % [place] % (Auto) 7.1 (2-11) % Eos % (Auto) 0.5 (0-4) % Baso % (Auto) 0.6 (0-2) % Lymph # (Auto) 2.8 (1.2-4.9) X10*3/uL [place] # (Auto) 0.7 (0.1-1.2) X10*3/uL Eos # (Auto) 0.1 (0.0-0.4) X10*3/uL Baso # (Auto) 0.1 (0.0-0.2) X10*3/uL Abs Immat Gran (auto) 0.03 (0.00-0.03) X10*3/uL Absolute Neuts (auto) 6.1 (2.0-8.3) x10*3/uL Absolute Nucleated RBC 0.000 (0.0-0.012) X10*3/uL Nucleated RBC % (auto) 0.0 (0.0-0.2) /100WBC VBG pH 7.36 (7.32-7.43) VBG pCO2 44 mmHg VBG pO2 99 mmHg VBG HCO3 25 (22-26) mmol/L VBG O2 Saturation 99.0 % VBG Base Excess -0.2 mmol/L Sodium (135-145) mmol/L Potassium (3.3-5.1) mmol/L Chloride (96-108) mmol/L Carbon Dioxide (22-29) mmol/L Anion Gap (12-20) BUN (9-16) mg/dL Creatinine (0.5-1.4) mg/dL Estim Creat Clear Calc Estimated GFR Random Glucose (60-115) mg/dL Calcium (8.4-10.2) mg/dL Total Bilirubin (0.0-1.0) mg/dL AST (5-31) U/L ALT (0-31) U/L Alkaline Phosphatase (39-117) U/L Total Protein (6.5-8.0) g/dL Albumin (3.5-5.0) g/dL Urine Color Urine Appearance Urine pH (5.0-8.0) Ur Specific [place] (1.005-1.025) Urine Protein (NEG-TRACE) MG/DL Urine Glucose (UA) (NEG) MG/DL Urine Ketones (NEG) MG/DL Urine Blood (NEG) Urine Nitrite (NEG) Ur Leukocyte Esterase (NEG) Urine RBC (0) /HPF Urine WBC (0-4) /HPF Ur Squamous Epith Cells /LPF Urine Bacteria /LPF Hyaline Casts /LPF Granular Casts /LPF Urine Mucus /LPF Urine Trichomonas Urine Opiates Screen (Not Detect) Urine Fentanyl Screen (Not Detect) Ur Barbiturates Screen (Not Detect) Ur Phencyclidine Scrn (Not Detect) Ur Amphetamines Screen (Not Detect) U Benzodiazepines Scrn (Not Detect) [place] (0.60-1.20) mmol/L Urine Cocaine Screen (Not Detect) U Marijuana (THC) Screen (Not Detect) Ethyl Alcohol mg/dL COVID-19 (ENDY) (Negative) COVID-19 Clin Com <LASHONDA Coppola - Last Filed: 03/31/22 02:56> Discharge Plan Discharge Clinical Impression: Acute depression, PTSD (post-traumatic stress disorder), Cocaine use disorder, Bipolar disorder <Sonia Hendrix MD - Last Filed: 03/31/22 03:19> Patient Disposition: Still a Patient <Sonia Hendrix MD - Last Filed: 03/31/22 03:19> Prescriptions: No Action capsaicin 0.025 % Cream 1 appl topical QID PRN (Reason: leg pain) 30 Days Qty: 100 0RF Protocol: Apply to: Apply to: legs B/L oxcarbazepine 150 mg Tablet 150 mg PO BID 30 Days Qty: 60 0RF cyanocobalamin (vitamin B-12) [Vitamin B-12] 100 mcg Tablet 100 mcg PO DAILY 30 Days Qty: 30 0RF valacyclovir 1 gram Tablet 1,000 mg PO BID 30 Days Qty: 60 0RF gabapentin 400 mg Capsule 400 mg PO TID 30 Days Qty: 90 0RF olanzapine 10 mg Tablet 10 mg PO BEDTIME 30 Days Qty: 30 0RF clonidine HCl 0.2 mg Tablet 0.2 mg PO BEDTIME 30 Days Qty: 30 0RF Protocol: Hold for SBP< HOLD for SBP < : 90 trazodone 100 mg Tablet 200 mg PO BEDTIME 30 Days Qty: 60 0RF lithium carbonate 300 mg Capsule 600 mg PO BID 30 Days Qty: 120 0RF ropinirole 0.5 mg Tablet 0.5 mg PO BEDTIME 30 Days Qty: 30 0RF benztropine 1 mg Tablet 1 mg PO BID 30 Days Qty: 60 0RF omeprazole 20 mg Capsule,Delayed Release(Dr/Ec) 20 mg PO DAILY@0630 30 Days Qty: 30 0RF albuterol sulfate 90 mcg/actuation HFA aerosol inhaler 2 puff inhalation Q4-6H PRN (Reason: shortness of breath or wheezing) 30 Days Qty: 1 0RF sertraline 50 mg Tablet 50 mg PO DAILY 30 Days Qty: 30 0RF Spiriva with HandiHaler 18 mcg Capsule, W/Inhalation Device 1 puff inhalation RDAILY 30 Days Qty: 1 0RF cholecalciferol (vitamin D3) 25 mcg (1,000 unit) Tablet 25 mcg PO DAILY 30 Days Qty: 30 0RF ferrous sulfate 324 mg (65 mg iron) Tablet,Delayed Release (Dr/Ec) 324 mg PO DAILY 30 Days Qty: 30 0RF Breo Ellipta 200-25 mcg/dose Blister With Device 1 puff inhalation RDAILY 30 Days Qty: 1 0RF <Sonia Hendrix MD - Last Filed: 03/31/22 03:19>
[2022-03-30 23:13] LABS: Amphetamine Screen Urine Not Detected (Not Detect); Barbiturates, Urine Not Detected (Not Detect); Benzodiazepines Screen Urine Not Detected (Not Detect); Cannabinoid Screen Urine Not Detected (Not Detect); Cocaine Screen Urine POSITIVE (Not Detect); Fentanyl, urine Not Detected (Not Detect); Opiate Screen Urine Not Detected (Not Detect); Phencyclidine Screen Urine Not Detected (Not Detect)
[2022-03-30 23:14] LABS: COVID-19 Test Negative (Negative); IDNOW Serial# 55D5AD1C
[2022-03-30 23:18] LABS: Bacteria Urine 3+ /LPF; Granular Casts Urine 0-2 /LPF; Mucus Urine 2+ /LPF; Squamous Epithelial Cell Urine 2+ /LPF; Trichomonas Urine NOTED
[2022-03-30] MEDS: Ondansetron ODT 4 MG TAB.RAPDIS TRANSLINGU (23:34)
[2022-03-30] MEDS: LORazepam 1 MG TABLET PO (23:35)
--- NOTE | 2022-03-31 | ECG_ITS ---
Test Reason : CHEST PAIN Blood Pressure : / mmHG Vent. Rate : 070 BPM Atrial Rate : 070 BPM P-R Int : 140 ms QRS Dur : 088 ms QT Int : 404 ms P-R-T Axes : -13 041 026 degrees QTc Int : 436 ms Normal sinus rhythm Nonspecific T wave abnormality Abnormal ECG When compared with ECG of 17-MAR-2022 20:18, No significant change was found Referred By: Monisha Ricketts Electronically Signed By:VAIBHAV KILLIAN MD
[2022-03-31 01:11] VITALS: BP 139/89; PULSE 89; RESP 20; TEMP 36.9; O2SAT 94
[2022-03-31 01:36] LABS: Lithium < 0.10 mmol/L (0.60-1.20)
[2022-03-31 01:37] LABS: Ethanol < 10 mg/dL
[2022-03-31 02:00] LABS: Alanine Aminotransferase 35 U/L (0-31); Albumin Level 4.5 g/dL (3.5-5.0); Alkaline Phosphatase 77 U/L (39-117); Anion Gap 15 (12-20); Aspartate Amino Transferase 18 U/L (5-31); Blood Urea Nitrogen 13 mg/dL (9-16); Calcium 9.8 mg/dL (8.4-10.2); Carbon Dioxide 25 mmol/L (22-29); Chloride 105 mmol/L (96-108); Creatinine Clr Calc Pharmacy 93.4; Estimated Glomerular Filt Rate > 60; Glucose Random 123 mg/dL (60-115); Potassium 3.6 mmol/L (3.3-5.1); Sodium 141 mmol/L (135-145); Total Protein 7.1 g/dL (6.5-8.0)
[2022-03-31 02:07] LABS: Bilirubin Total 0.2 mg/dL (0.0-1.0)
[2022-03-31 02:45] LABS: Basophils Absolute Auto 0.1 X10*3/uL (0.0-0.2); Basophils Percent Auto 0.6 % (0-2); Eosinophils Absolute Auto 0.1 X10*3/uL (0.0-0.4); Eosinophils Percent Auto 0.5 % (0-4); Hemoglobin 12.5 g/dl (12.0-16.0); Imm Gran Abs Auto 0.03 X10*3/uL (0.00-0.03); Imm Gran Pct Auto 0.3 % (0.0-0.4); Lymphocytes Absolute Auto 2.8 X10*3/uL (1.2-4.9); Lymphocytes Percent Auto 28.6 % (20-40); MANUAL DIFF FLAG NO; Mean Corpuscular HGB Conc 32.1 g/dl (31.0-35.0); Mean Corpuscular Hemoglobin 29.8 pg (27.0-33.0); Mean Corpuscular Volume 93.1 fL (80.0-98.0); Mean Platelet Volume 9.4 fL (9.4-12.3); Monocytes Absolute Auto 0.7 X10*3/uL (0.1-1.2); Monocytes Percent Auto 7.1 % (2-11); Neutrophils Absolute Auto 6.1 x10*3/uL (2.0-8.3); Neutrophils Percent Auto 62.9 % (45-73); Platelet Count 252 X10*3/uL (160-400); Red Blood Count 4.19 X10*6/uL (4.20-5.50); Red Cell Distribution Width 13.1 % (11.0-16.0); White Blood Count 9.8 X10*3/uL (4.8-10.8)
[2022-03-31 02:49] LABS: VBG Base Excess -0.2 mmol/L; VBG HCO3 25 mmol/L (22-26); VBG pCO2 44 mmHg; VBG pH 7.36 (7.32-7.43); VBG pO2 99 mmHg
[2022-03-31 02:55] LABS: Venous Blood Gas Refer to POC result
[2022-03-31] MEDS: Omeprazole 20 MG CAPSULE.DR PO (06:28)
--- NOTE | 2022-03-31 06:34 | PC.NURSE ---
Patient slept through the night, no distress observed/reported, patient was experiencing visual hallucination seeing butterflies on the wall, patient engaged well with N, disposition is section 12 inpatient bed search, med rec completed/provider approved/MAR active, VSS, will continue to monitor.
--- NOTE | 2022-03-31 07:37 | PC.NURSE ---
patient appears to remain asleep at present, respirations are even and unlabored patient appears in no distress
[2022-03-31] MEDS: OXcarbazepine 150 MG TABLET PO (09:14)
[2022-03-31] MEDS: valACYclovir HCL 1,000 MG TABLET 1000 MG PO (09:14)
[2022-03-31] MEDS: Benztropine Mesylate 1 MG TABLET PO (09:15)
[2022-03-31] MEDS: Gabapentin 400 MG CAPSULE PO ×2 (09:15→15:35)
[2022-03-31] MEDS: Lithium Carbonate 300 MG CAPSULE 600 MG PO (09:15)
[2022-03-31] MEDS: Ferrous Sulfate 324 MG TABLET.DR PO (09:15)
[2022-03-31] MEDS: Cholecalciferol (Vitamin D3) 25 MCG TABLET PO (09:15)
[2022-03-31] MEDS: Sertraline HCL 50 MG TABLET PO (09:15)
[2022-03-31] MEDS: Cyanocobalamin (Vitamin B-12) 100 MCG TABLET PO (09:15)
[2022-03-31] MEDS: Acetaminophen 325 MG TABLET 650 MG PO (10:27)
--- NOTE | 2022-03-31 13:33 | PC.NURSE ---
Pt seen on this date for individual OT intervention. Pt appeared drowsy, anxious, depressed, stated feeling bored, there is nothing to do here and it gives me anxiety . Leisure activity exploration performed with pt, identified journaling and puzzles and her preferred methods of coping. Pt provided with blank notebook and safety pen for pt to journal in her free time. Pt also provided with a puzzle which she immediately began to do with positive effect in mood and concentration.
[2022-03-31] MEDS: Calcium Carbonate 750 MG TAB.CHEW 1500 MG PO (13:38)
== END 2022-03-31 20:39 ==
PROVIDERS: Emergency Provider Student in an Organized Health Care Education/Training Program; PCP Family Medicine
DX: F32.3 Major depressive disorder, single episode, severe with psychotic features (principal); F43.10 Post-traumatic stress disorder, unspecified; F14.10 Cocaine abuse, uncomplicated; F31.9 Bipolar disorder, unspecified; R45.851 Suicidal ideations; F60.3 Borderline personality disorder; F17.200 Nicotine dependence, unspecified, uncomplicated; Z79.899 Other long term (current) drug therapy; Z20.822 Contact with and (suspected) exposure to COVID-19
CPT/HCPCS: 36415; 80053; 80178; 80307; 81001; 81003; 82077; 82803; 85025; 87635; 93005; 99285

== ENCOUNTER 2022-04-13 21:47 | Inpatient (IN) | payer OTHER, MEDICAID, SELFPAY ==
--- NOTE | ~2022-04-13 | XR_ITS ---
EXAMINATION: XR CHEST CLINICAL INFORMATION: Chest pain COMPARISON: 02/23/2022 TECHNIQUE: Frontal view of the chest was obtained. FINDINGS: Normal symmetric lung volumes. No parenchymal consolidation. No pleural effusion. No pneumothorax. Cardiomediastinal silhouette and pulmonary vascularity are within normal limits. No acute osseous abnormalities. XR/XR chest 1V IMPRESSION: No acute findings
[2022-04-13 21:56] VITALS: BP 164/77; PULSE 91; RESP 18; TEMP 36.1; O2SAT 93; BMI 37.9
--- NOTE | 2022-04-13 22:07 | ED_ITS ---
HPI - Psych General Chief Complaint: Psychiatric Symptoms Stated Complaint: CRISIS Time Seen by Provider: 04/13/22 22:06 Source: patient and EMS Mode of arrival: EMS Limitations: no limitations History of Present Illness HPI Narrative: 52-year-old female past medical history significant for COPD, PTSD, asthma prese nting to the emergency department with suicidal ideation times a week. Patient tells me she is suicidal, depressed and has been worsening over the past few days. Patient has a plan to jump off a bridge she tells me she wants to go to the [facility], and end her life. She tells me that she uses drugs daily she reports that she uses crack multiple times per day last use was about an hour ago. She smokes tobacco 1 pack per day. Denies alcohol use. She denies homicidal ideation. She tells me she is hearing voices that are telling her to jump off the bridge in she should . Denies any medical complaints at this time. Denies significant life stressors. Take medications as prescribed MD complaint: suicidal ideation Onset (ago): week(s) (1) Duration: constant History of same: Yes Relieving factors: none Exacerbating factors: none Context: recent drug abuse Associated psychiatric symptoms: none Associated symptoms: denies other symptoms Treatments prior to arrival: none If self harm: admits thoughts of self harm Related Data Previous Rx's Medication Instructions Recorded albuterol sulfate 90 mcg/actuation 2 puff inhalation Q4-6H PRN 03/23/22 aerosol inhaler shortness of breath or wheezing 30 days #1 inhaler benztropine 1 mg tablet 1 mg PO BID 30 days #60 tabs 03/23/22 capsaicin 0.025 % topical cream 1 appl topical QID PRN leg pain 30 03/23/22 days #100 grams cholecalciferol (vitamin D3) 25 25 mcg PO DAILY 30 days #30 tabs 03/23/22 mcg (1,000 unit) tablet clonidine HCl 0.2 mg tablet 0.2 mg PO BEDTIME 30 days #30 tabs 03/23/22 cyanocobalamin (vitamin B-12) 100 100 mcg PO DAILY 30 days #30 tabs 03/23/22 mcg tablet (Vitamin B-12) ferrous sulfate 324 mg (65 mg 324 mg PO DAILY 30 days #30 tabs 03/23/22 iron) tablet,delayed release fluticasone furoate 200 1 puff inhalation RDAILY 30 days 03/23/22 mcg-vilanterol 25 mcg/dose #1 ea inhalation powder (Breo Ellipta) gabapentin 400 mg capsule 400 mg PO TID 30 days #90 caps 03/23/22 lithium carbonate 300 mg capsule 600 mg PO BID 30 days #120 caps 03/23/22 olanzapine 10 mg tablet 10 mg PO BEDTIME 30 days #30 tabs 03/23/22 omeprazole 20 mg capsule,delayed 20 mg PO DAILY@0630 30 days #30 03/23/22 release caps oxcarbazepine 150 mg tablet 150 mg PO BID 30 days #60 tabs 03/23/22 ropinirole 0.5 mg tablet 0.5 mg PO BEDTIME 30 days #30 tabs 03/23/22 sertraline 50 mg tablet 50 mg PO DAILY 30 days #30 tabs 03/23/22 tiotropium bromide 18 mcg capsule 1 puff inhalation RDAILY 30 days 03/23/22 with inhalation device (Spiriva #1 inhaler with HandiHaler) trazodone 100 mg tablet 200 mg PO BEDTIME 30 days #60 tabs 03/23/22 valacyclovir 1 gram tablet 1,000 mg PO BID 30 days #60 tabs 03/23/22 Allergies Allergy/AdvReac Type Severity Reaction Status Date / Time aspirin [Aspirin] Allergy Severe HIVES,THROAT Verified 10/13/21 04:51 SWELLS bee pollen [BEE STINGS] Allergy Severe ANAPHYLAXIS Verified 10/13/21 04:51 diphenhydramine Allergy Severe hives, Verified 10/13/21 04:51 [From BENADRYL ALLERGY] throat swells Penicillins [PCN] Allergy Severe HIVES Verified 10/13/21 04:51 THROAT SWELLS Sulfa (Sulfonamide Allergy Intermediate HIVES Verified 10/13/21 04:51 Antibiotics) [SULFA (SULFONAMIDE ANTIBIOTICS)] tramadol [TRAMADOL] Allergy Intermediate ITCHING Verified 10/13/21 04:51 latex [LATEX] Allergy Unknown UNKNOWN Verified 10/13/21 04:51 penicillin G Allergy Unknown Unknown Verified 10/13/21 04:51 levofloxacin [From Levaquin] Allergy Hives Verified 10/13/21 04:51 hydroxyzine AdvReac Severe restless Verified 01/27/22 19:57 legs seafood AdvReac Stomach Verified 03/17/22 12:07 Upset bee stings Allergy Unknown Unknown Uncoded 10/13/21 04:51 DairyCare Allergy Unknown Unknown Uncoded 10/13/21 04:51 sulfa drugs Allergy Unknown Unknown Uncoded 10/13/21 04:51 Review of Systems Review of Systems: Constitutional : No Fever, No Chills ENT/Mouth : No Ear Pain, No Nasal Congestion, No sore throat Eyes: No Eye Pain, No Swelling, No Redness Cardiovascular : No Chest Pain, No SOB Respiratory : No Cough, No Sputum, No Dyspnea Gastrointestinal : No Nausea, No Vomiting, No Diarrhea, No Hematochezia, No Melena Genitourinary : No Dysuria, No Urinary Frequency, No Hematuria Musculoskeletal : No Myalgias Skin : No Skin Lesions, No rash Neuro : No Weakness, No Numbness, No Paresthesias, No Dizziness, No Headache Psych : positive Anxiety, positive Depression, positive SI, No HI Yes all other systems are reviewed and are negative PMFSH Past Medical History Attestation statement: The following information was validated with the patient. Source: old records reviewed and nursing notes reviewed Medical History Asthma exacerbation in COPD Bipolar disorder Bipolar I disorder Borderline personality disorder COPD (chronic obstructive pulmonary disease) Depression Depression Drug abuse Intermittent explosive disorder Post traumatic stress disorder (PTSD) PTSD (post-traumatic stress disorder) Tobacco use Surgical History History of ankle surgery History of appendectomy History of back surgery Hx of cholecystectomy Family History Family History Mother COPD (chronic obstructive pulmonary disease) Social History Social History Household Members: None Household Members Other:: [facility] in [place] Housing: Homeless Housing Other:: will be getting apartment 07/01 Do you presently have visiting nurse or other home services: No Unable to assess alcohol history related to: Unknown Alcohol intake: never Patient Tobacco Use Status: Current everyday Tobacco user Tobacco use type: Cigarette Cigarette Packs Per Day: 1 Cigarettes Per Day: 20.0 Years Smoked: 38 e-Cigarette/Vaping Use: Never Used Second Hand Smoke Exposure: Yes Substance Use Type: Crack/Cocaine Advance Directives: Yes Advance Directives on File: Yes Advance Directives Date on File: 12/24/20 service: No Current occupational status: unemployed and disabled Sexual orientation: Don't Know Physical Exam Vital Signs: Vital Signs: Last Vital Signs Temp 97.4 F 04/14/22 00:13 Pulse 83 04/14/22 00:13 Resp 16 04/14/22 00:13 BP 112/63 04/14/22 00:13 Pulse Ox 94 04/14/22 00:13 O2 Del Method 04/14/22 00:13 BMI result Body Mass Index 37.9 vss Appearance: Alert.? Oriented X3.? No acute distress.? Head:? Normocephalic, atraumatic, no step-offs or deformities Eyes: Pupils equal, round and reactive to light.? ENT: Pharynx normal.? Neck: Normal inspection.? Neck supple.? CVS: Normal heart rate and rhythm.? Pulses normal.? Respiratory: No respiratory distress.? Breath sounds normal.? Abdomen: Soft and nontender.? Skin: Skin warm and dry.? Normal skin color.? Normal skin turgor.? Extremities: No lower extremity edema.? No calf ttp.? 5/5 strength to bilateral upper and lower extremities Back:? No midline tenderness, no C-spine tenderness, full range of motion, no CVA tenderness bilaterally Neuro: Oriented X 3.? No motor deficit.? No sensory deficit. CN 2-12 intact. ? Course Reevaluation(s) Reevaluation #1: Patient's CBC appears to be at baseline. Chemistry with no acute electrolyte abnormalities requiring intervention. With no signs of acute infection. Patient's lithium level low will be started on home meds. Ethanol negative. Urine toxicology positive for cocaine. COVID negative. At this time patient will be placed in physician observation to allow more time to be evaluated by the behavioral health team. At time of observation was started patient common cooperative no acute distress Time: 01:28 Reevaluation #2: PIETER Camacho saw patient in patient bedsearch at this time, was placed on a section 12. Time: 02:44 MDM - Psych MDM Narrative Medical decision making narrative: 2009 51 yo female well known to our facility presents to the ED w/ suicidal ideation w/ plan to jump off a bridge. Similar presentation in past. PE benign Cn 2-12 intact. Plan basic labs. Cashiers level. Medical Records Attestation: I reviewed the patient's medical records. Lab Data Attestation: I reviewed the patient's lab results. Result diagrams: 04/14/22 00:22 04/14/22 00:22 Labs: Lab Results 04/13/22 04/13/22 04/13/22 Range/Units 22:19 22:19 22:19 WBC (4.8-10.8) X10*3/uL RBC (4.20-5.50) X10*6/uL Hgb (12.0-16.0) g/dl Hct (37.0-47.0) % MCV (80.0-98.0) fL MCH (27.0-33.0) pg MCHC (31.0-35.0) g/dl RDW (11.0-16.0) % Plt Count (160-400) X10*3/uL MPV (9.4-12.3) fL Immature Gran % (Auto) (0.0-0.4) % Neut % (Auto) (45-73) % Lymph % (Auto) (20-40) % [place] % (Auto) (2-11) % Eos % (Auto) (0-4) % Baso % (Auto) (0-2) % Lymph # (Auto) (1.2-4.9) X10*3/uL [place] # (Auto) (0.1-1.2) X10*3/uL Eos # (Auto) (0.0-0.4) X10*3/uL Baso # (Auto) (0.0-0.2) X10*3/uL Abs Immat Gran (auto) (0.00-0.03) X10*3/uL Absolute Neuts (auto) (2.0-8.3) x10*3/uL Absolute Nucleated RBC (0.0-0.012) X10*3/uL Nucleated RBC % (auto) (0.0-0.2) /100WBC Sodium (135-145) mmol/L Potassium (3.3-5.1) mmol/L Chloride (96-108) mmol/L Carbon Dioxide (22-29) mmol/L Anion Gap (12-20) BUN (9-16) mg/dL Creatinine (0.5-1.4) mg/dL Estim Creat Clear Calc Estimated GFR Random Glucose (60-115) mg/dL Calcium (8.4-10.2) mg/dL Magnesium (1.6-2.6) mg/dL Total Bilirubin (0.0-1.0) mg/dL AST (5-31) U/L ALT (0-31) U/L Alkaline Phosphatase (39-117) U/L Total Protein (6.5-8.0) g/dL Albumin (3.5-5.0) g/dL Urine Color YELLOW Urine Appearance CLEAR Urine pH 7.0 (5.0-8.0) Ur Specific [place] 1.010 (1.005-1.025) Urine Protein 1+ H (NEG-TRACE) MG/DL Urine Glucose (UA) NEG (NEG) MG/DL Urine Ketones NEG (NEG) MG/DL Urine Blood NEG (NEG) Urine Nitrite NEG (NEG) Ur Leukocyte Esterase 2+ H (NEG) Urine RBC 0 (0) /HPF Urine WBC 15-29 H (0-4) /HPF Ur Squamous Epith Cells 2+ /LPF Urine Bacteria 2+ /LPF Urine Trichomonas NOTED Urine Opiates Screen Not Detected (Not Detect) Urine Fentanyl Screen Not Detected (Not Detect) Ur Barbiturates Screen Not Detected (Not Detect) Ur Phencyclidine Scrn Not Detected (Not Detect) Ur Amphetamines Screen Not Detected (Not Detect) U Benzodiazepines Scrn Not Detected (Not Detect) [place] (0.60-1.20) mmol/L Urine Cocaine Screen POSITIVE H (Not Detect) U Marijuana (THC) Screen Not Detected (Not Detect) Ethyl Alcohol mg/dL COVID-19 (ENDY) Negative (Negative) COVID-19 Clin Com See Note 04/14/22 04/14/22 04/14/22 Range/Units 00:22 00:22 00:22 WBC 7.4 (4.8-10.8) X10*3/uL RBC 3.97 L (4.20-5.50) X10*6/uL Hgb 12.0 (12.0-16.0) g/dl Hct 37.3 (37.0-47.0) % MCV 94.0 (80.0-98.0) fL MCH 30.2 (27.0-33.0) pg MCHC 32.2 (31.0-35.0) g/dl RDW 13.2 (11.0-16.0) % Plt Count 257 (160-400) X10*3/uL MPV 9.7 (9.4-12.3) fL Immature Gran % (Auto) 0.3 (0.0-0.4) % Neut % (Auto) 59.1 (45-73) % Lymph % (Auto) 31.2 (20-40) % [place] % (Auto) 7.3 (2-11) % Eos % (Auto) 1.2 (0-4) % Baso % (Auto) 0.9 (0-2) % Lymph # (Auto) 2.3 (1.2-4.9) X10*3/uL [place] # (Auto) 0.5 (0.1-1.2) X10*3/uL Eos # (Auto) 0.1 (0.0-0.4) X10*3/uL Baso # (Auto) 0.1 (0.0-0.2) X10*3/uL Abs Immat Gran (auto) 0.02 (0.00-0.03) X10*3/uL Absolute Neuts (auto) 4.4 (2.0-8.3) x10*3/uL Absolute Nucleated RBC 0.000 (0.0-0.012) X10*3/uL Nucleated RBC % (auto) 0.0 (0.0-0.2) /100WBC Sodium 140 (135-145) mmol/L Potassium 3.5 (3.3-5.1) mmol/L Chloride 105 (96-108) mmol/L Carbon Dioxide 29 (22-29) mmol/L Anion Gap 10 L (12-20) BUN 10 (9-16) mg/dL Creatinine 0.72 (0.5-1.4) mg/dL Estim Creat Clear Calc 114.1 Estimated GFR > 60 Random Glucose 128 H (60-115) mg/dL Calcium 9.2 D (8.4-10.2) mg/dL Magnesium 2.0 (1.6-2.6) mg/dL Total Bilirubin 0.4 (0.0-1.0) mg/dL AST 23 (5-31) U/L ALT 51 H (0-31) U/L Alkaline Phosphatase 99 D (39-117) U/L Total Protein 6.1 L (6.5-8.0) g/dL Albumin 3.9 (3.5-5.0) g/dL Urine Color Urine Appearance Urine pH (5.0-8.0) Ur Specific [place] (1.005-1.025) Urine Protein (NEG-TRACE) MG/DL Urine Glucose (UA) (NEG) MG/DL Urine Ketones (NEG) MG/DL Urine Blood (NEG) Urine Nitrite (NEG) Ur Leukocyte Esterase (NEG) Urine RBC (0) /HPF Urine WBC (0-4) /HPF Ur Squamous Epith Cells /LPF Urine Bacteria /LPF Urine Trichomonas Urine Opiates Screen (Not Detect) Urine Fentanyl Screen (Not Detect) Ur Barbiturates Screen (Not Detect) Ur Phencyclidine Scrn (Not Detect) Ur Amphetamines Screen (Not Detect) U Benzodiazepines Scrn (Not Detect) [place] < 0.44 L (0.60-1.20) mmol/L Urine Cocaine Screen (Not Detect) U Marijuana (THC) Screen (Not Detect) Ethyl Alcohol mg/dL COVID-19 (ENDY) (Negative) COVID-19 Clin Com 04/14/22 Range/Units 00:22 WBC (4.8-10.8) X10*3/uL RBC (4.20-5.50) X10*6/uL Hgb (12.0-16.0) g/dl Hct (37.0-47.0) % MCV (80.0-98.0) fL MCH (27.0-33.0) pg MCHC (31.0-35.0) g/dl RDW (11.0-16.0) % Plt Count (160-400) X10*3/uL MPV (9.4-12.3) fL Immature Gran % (Auto) (0.0-0.4) % Neut % (Auto) (45-73) % Lymph % (Auto) (20-40) % [place] % (Auto) (2-11) % Eos % (Auto) (0-4) % Baso % (Auto) (0-2) % Lymph # (Auto) (1.2-4.9) X10*3/uL [place] # (Auto) (0.1-1.2) X10*3/uL Eos # (Auto) (0.0-0.4) X10*3/uL Baso # (Auto) (0.0-0.2) X10*3/uL Abs Immat Gran (auto) (0.00-0.03) X10*3/uL Absolute Neuts (auto) (2.0-8.3) x10*3/uL Absolute Nucleated RBC (0.0-0.012) X10*3/uL Nucleated RBC % (auto) (0.0-0.2) /100WBC Sodium (135-145) mmol/L Potassium (3.3-5.1) mmol/L Chloride (96-108) mmol/L Carbon Dioxide (22-29) mmol/L Anion Gap (12-20) BUN (9-16) mg/dL Creatinine (0.5-1.4) mg/dL Estim Creat Clear Calc Estimated GFR Random Glucose (60-115) mg/dL Calcium (8.4-10.2) mg/dL Magnesium (1.6-2.6) mg/dL Total Bilirubin (0.0-1.0) mg/dL AST (5-31) U/L ALT (0-31) U/L Alkaline Phosphatase (39-117) U/L Total Protein (6.5-8.0) g/dL Albumin (3.5-5.0) g/dL Urine Color Urine Appearance Urine pH (5.0-8.0) Ur Specific [place] (1.005-1.025) Urine Protein (NEG-TRACE) MG/DL Urine Glucose (UA) (NEG) MG/DL Urine Ketones (NEG) MG/DL Urine Blood (NEG) Urine Nitrite (NEG) Ur Leukocyte Esterase (NEG) Urine RBC (0) /HPF Urine WBC (0-4) /HPF Ur Squamous Epith Cells /LPF Urine Bacteria /LPF Urine Trichomonas Urine Opiates Screen (Not Detect) Urine Fentanyl Screen (Not Detect) Ur Barbiturates Screen (Not Detect) Ur Phencyclidine Scrn (Not Detect) Ur Amphetamines Screen (Not Detect) U Benzodiazepines Scrn (Not Detect) [place] (0.60-1.20) mmol/L Urine Cocaine Screen (Not Detect) U Marijuana (THC) Screen (Not Detect) Ethyl Alcohol < 10 mg/dL COVID-19 (ENDY) (Negative) COVID-19 Clin Com Critical Care Time Critical Care Time Critical Care Time: No Discharge Plan Discharge Clinical Impression: Suicidal ideation Patient Disposition: Still a Patient Prescriptions: No Action capsaicin 0.025 % Cream 1 appl topical QID PRN (Reason: leg pain) 30 Days Qty: 100 0RF Protocol: Apply to: Apply to: legs B/L oxcarbazepine 150 mg Tablet 150 mg PO BID 30 Days Qty: 60 0RF cyanocobalamin (vitamin B-12) [Vitamin B-12] 100 mcg Tablet 100 mcg PO DAILY 30 Days Qty: 30 0RF valacyclovir 1 gram Tablet 1,000 mg PO BID 30 Days Qty: 60 0RF gabapentin 400 mg Capsule 400 mg PO TID 30 Days Qty: 90 0RF olanzapine 10 mg Tablet 10 mg PO BEDTIME 30 Days Qty: 30 0RF clonidine HCl 0.2 mg Tablet 0.2 mg PO BEDTIME 30 Days Qty: 30 0RF Protocol: Hold for SBP< HOLD for SBP < : 90 trazodone 100 mg Tablet 200 mg PO BEDTIME 30 Days Qty: 60 0RF lithium carbonate 300 mg Capsule 600 mg PO BID 30 Days Qty: 120 0RF ropinirole 0.5 mg Tablet 0.5 mg PO BEDTIME 30 Days Qty: 30 0RF benztropine 1 mg Tablet 1 mg PO BID 30 Days Qty: 60 0RF omeprazole 20 mg Capsule,Delayed Release(Dr/Ec) 20 mg PO DAILY@0630 30 Days Qty: 30 0RF albuterol sulfate 90 mcg/actuation HFA aerosol inhaler 2 puff inhalation Q4-6H PRN (Reason: shortness of breath or wheezing) 30 Days Qty: 1 0RF sertraline 50 mg Tablet 50 mg PO DAILY 30 Days Qty: 30 0RF Spiriva with HandiHaler 18 mcg Capsule, W/Inhalation Device 1 puff inhalation RDAILY 30 Days Qty: 1 0RF cholecalciferol (vitamin D3) 25 mcg (1,000 unit) Tablet 25 mcg PO DAILY 30 Days Qty: 30 0RF ferrous sulfate 324 mg (65 mg iron) Tablet,Delayed Release (Dr/Ec) 324 mg PO DAILY 30 Days Qty: 30 0RF fluticasone furoate-vilanterol [Breo Ellipta] 200-25 mcg/dose Blister With Device 1 puff inhalation RDAILY 30 Days Qty: 1 0RF
[2022-04-13 22:35] LABS: Appearance Urine CLEAR; Color Urine YELLOW; Glucose Urine UA NEG (NEG); Leukocyte Esterase Urine 2+ (NEG); Nitrite Urine NEG (NEG); UACC Culture Trigger YES; Urine Blood NEG (NEG); Urine Ketones NEG (NEG); Urine Protein 1+ MG/DL (NEG-TRACE)
[2022-04-13 22:44] LABS: Bacteria Urine 2+ /LPF; Squamous Epithelial Cell Urine 2+ /LPF; Trichomonas Urine NOTED
[2022-04-13 22:46] LABS: RBC Urine 0 /HPF (0)
[2022-04-13 22:53] LABS: COVID-19 Test Negative (Negative)
[2022-04-13 23:00] LABS: Amphetamine Screen Urine Not Detected (Not Detect); Barbiturates, Urine Not Detected (Not Detect); Benzodiazepines Screen Urine Not Detected (Not Detect); Cannabinoid Screen Urine Not Detected (Not Detect); Cocaine Screen Urine POSITIVE (Not Detect); Fentanyl, urine Not Detected (Not Detect); Opiate Screen Urine Not Detected (Not Detect); Phencyclidine Screen Urine Not Detected (Not Detect)
--- NOTE | 2022-04-14 | ECG_ITS ---
Test Reason : med clearance Blood Pressure : / mmHG Vent. Rate : 064 BPM Atrial Rate : 064 BPM P-R Int : 146 ms QRS Dur : 084 ms QT Int : 458 ms P-R-T Axes : 056 043 032 degrees QTc Int : 472 ms Normal sinus rhythm Normal ECG When compared with ECG of 31-MAR-2022 13:01, No significant change was found Referred By: Monisha Ricketts Electronically Signed By:VAIBHAV KILLIAN MD
[2022-04-14 00:13] VITALS: BP 112/63; PULSE 83; RESP 16; TEMP 36.3; O2SAT 94
[2022-04-14 00:27] LABS: Basophils Absolute Auto 0.1 X10*3/uL (0.0-0.2); Basophils Percent Auto 0.9 % (0-2); Eosinophils Absolute Auto 0.1 X10*3/uL (0.0-0.4); Eosinophils Percent Auto 1.2 % (0-4); Hematocrit 37.3 % (37.0-47.0); Imm Gran Abs Auto 0.02 X10*3/uL (0.00-0.03); Imm Gran Pct Auto 0.3 % (0.0-0.4); Lymphocytes Absolute Auto 2.3 X10*3/uL (1.2-4.9); Lymphocytes Percent Auto 31.2 % (20-40); MANUAL DIFF FLAG NO; Mean Corpuscular HGB Conc 32.2 g/dl (31.0-35.0); Mean Corpuscular Hemoglobin 30.2 pg (27.0-33.0); Mean Platelet Volume 9.7 fL (9.4-12.3); Monocytes Absolute Auto 0.5 X10*3/uL (0.1-1.2); Monocytes Percent Auto 7.3 % (2-11); Neutrophils Absolute Auto 4.4 x10*3/uL (2.0-8.3); Neutrophils Percent Auto 59.1 % (45-73); Platelet Count 257 X10*3/uL (160-400); Red Blood Count 3.97 X10*6/uL (4.20-5.50); Red Cell Distribution Width 13.2 % (11.0-16.0); White Blood Count 7.4 X10*3/uL (4.8-10.8)
[2022-04-14 00:39] LABS: Ethanol < 10 mg/dL
[2022-04-14 00:44] LABS: Alanine Aminotransferase 51 U/L (0-31); Albumin Level 3.9 g/dL (3.5-5.0); Alkaline Phosphatase 99 U/L (39-117); Anion Gap 10 (12-20); Aspartate Amino Transferase 23 U/L (5-31); Bilirubin Total 0.4 mg/dL (0.0-1.0); Blood Urea Nitrogen 10 mg/dL (9-16); Calcium 9.2 mg/dL (8.4-10.2); Carbon Dioxide 29 mmol/L (22-29); Chloride 105 mmol/L (96-108); Creatinine Clr Calc Pharmacy 114.1; Estimated Glomerular Filt Rate > 60; Glucose Random 128 mg/dL (60-115); Lithium < 0.44 mmol/L (0.60-1.20); Potassium 3.5 mmol/L (3.3-5.1); Sodium 140 mmol/L (135-145); Total Protein 6.1 g/dL (6.5-8.0)
--- NOTE | 2022-04-14 02:02 | PC.NURSE ---
Patient woke up for bathroom use, complaint of discomfort at lateral left chest region, Maalox administered earlier for GI upset, provider notified/ordered EKG/completed/ ekg report presented to the provider/no new order at this time. Patient in bed appears sleeping, respiration +/=/non-labored bilaterally, will continue to monitor.
[2022-04-14 02:55] LABS: Acetaminophen LAB < 1 mcg/mL (<30); Salicylate < 5.0 mg/dL (15-30)
--- NOTE | 2022-04-14 06:22 | PC.NURSE ---
Patient slept through the night, no distress observed/reported, patient was assessed by BHN during overnight shift, patient engaged well, disposition per N is section 12 inpatient bed search, VSS, med rec completed/pending provider's approval, behavior appropriate and non concerning, will continue to monitor.
--- NOTE | 2022-04-14 07:04 | PC.NURSE ---
patient appears to remain asleep at present respirations are even and unlabored patient appears in no distress
[2022-04-14] MEDS: Cyanocobalamin (Vitamin B-12) 100 MCG TABLET PO (11:59)
[2022-04-14] MEDS: Gabapentin 400 MG CAPSULE PO ×3 (12:00→22:25)
[2022-04-14] MEDS: Ferrous Sulfate 324 MG TABLET.DR PO (12:00)
[2022-04-14] MEDS: Benztropine Mesylate 1 MG TABLET PO ×2 (12:00→22:25)
[2022-04-14] MEDS: Sertraline HCL 50 MG TABLET PO (12:00)
[2022-04-14] MEDS: valACYclovir HCL 1,000 MG TABLET 1000 MG PO ×2 (12:00→22:25)
[2022-04-14] MEDS: Cholecalciferol (Vitamin D3) 25 MCG TABLET PO (12:01)
[2022-04-14] MEDS: Lithium Carbonate 300 MG CAPSULE 600 MG PO ×2 (12:01→22:24)
[2022-04-14] MEDS: OXcarbazepine 150 MG TABLET PO ×2 (12:01→22:25)
[2022-04-14 12:30] VITALS: BP 134/80; PULSE 68; RESP 20; TEMP 37.1; O2SAT 94
[2022-04-14 19:17] VITALS: BMI 37.1
[2022-04-14] MEDS: cloNIDine HCL 0.2 MG TABLET PO (22:25)
[2022-04-14] MEDS: traZODone HCL 100 MG TABLET 200 MG PO (22:25)
[2022-04-14] MEDS: OLANZapine 10 MG TABLET PO (22:26)
[2022-04-14] MEDS: rOPINIRole HCL 0.5 MG TABLET PO (22:26)
[2022-04-14] MEDS: metroNIDAZOLE 500 MG TABLET PO (22:31)
[2022-04-14 22:34] VITALS: BP 141/76; PULSE 76; RESP 18; TEMP 36.2; O2SAT 94
[2022-04-15 06:55] VITALS: BP 81/50; PULSE 68; RESP 18; TEMP 36.1; O2SAT 93
[2022-04-15] MEDS: OXcarbazepine 150 MG TABLET PO ×2 (09:14→20:43)
[2022-04-15] MEDS: valACYclovir HCL 1,000 MG TABLET 1000 MG PO ×2 (09:14→20:43)
[2022-04-15] MEDS: Omeprazole 20 MG CAPSULE.DR PO (09:14)
[2022-04-15] MEDS: Fluticasone/Vilanterol 200/25 BLST.W.DEV 1 PUFF INHALE (09:14)
[2022-04-15] MEDS: metroNIDAZOLE 500 MG TABLET PO ×2 (09:15→20:43)
[2022-04-15] MEDS: Ferrous Sulfate 324 MG TABLET.DR PO (09:15)
[2022-04-15] MEDS: Lithium Carbonate 300 MG CAPSULE 600 MG PO ×2 (09:15→20:43)
[2022-04-15] MEDS: Cholecalciferol (Vitamin D3) 25 MCG TABLET PO (09:15)
[2022-04-15] MEDS: Cyanocobalamin (Vitamin B-12) 100 MCG TABLET PO (09:15)
[2022-04-15] MEDS: Gabapentin 400 MG CAPSULE PO ×3 (09:15→20:43)
[2022-04-15] MEDS: Sertraline HCL 50 MG TABLET PO (09:15)
[2022-04-15] MEDS: Benztropine Mesylate 1 MG TABLET PO ×2 (09:15→20:43)
[2022-04-15] MEDS: Acetaminophen 325 MG TABLET 650 MG PO (09:24)
[2022-04-15] MEDS: Albuterol Sulfate 90 MCG 8 GM INHALER 2 PUFF INHALE (10:29)
[2022-04-15] MEDS: LORazepam 1 MG TABLET PO (10:56)
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
[2022-04-15] MEDS: Ibuprofen 800 MG TABLET PO (15:00)
[2022-04-15 20:00] VITALS: BP 130/74; PULSE 79; RESP 20; TEMP 36.6; O2SAT 93
[2022-04-15] MEDS: traZODone HCL 100 MG TABLET 200 MG PO (20:43)
[2022-04-15] MEDS: cloNIDine HCL 0.2 MG TABLET PO (20:43)
[2022-04-15] MEDS: rOPINIRole HCL 0.5 MG TABLET PO (20:43)
[2022-04-15] MEDS: OLANZapine 10 MG TABLET PO (20:43)
[2022-04-16 06:00] VITALS: BP 136/84; PULSE 82; RESP 18; TEMP 36.6; O2SAT 98
[2022-04-16] MEDS: Omeprazole 20 MG CAPSULE.DR PO (07:01)
[2022-04-16] MEDS: Ferrous Sulfate 324 MG TABLET.DR PO (08:36)
[2022-04-16] MEDS: Cholecalciferol (Vitamin D3) 25 MCG TABLET PO (08:36)
[2022-04-16] MEDS: Fluticasone/Vilanterol 200/25 BLST.W.DEV 1 PUFF INHALE (08:36)
[2022-04-16] MEDS: Cyanocobalamin (Vitamin B-12) 100 MCG TABLET PO (08:36)
[2022-04-16] MEDS: Benztropine Mesylate 1 MG TABLET PO ×2 (08:36→20:02)
[2022-04-16] MEDS: metroNIDAZOLE 500 MG TABLET PO ×2 (08:37→20:02)
[2022-04-16] MEDS: valACYclovir HCL 1,000 MG TABLET 1000 MG PO ×2 (08:37→20:01)
[2022-04-16] MEDS: Sertraline HCL 50 MG TABLET PO (08:37)
[2022-04-16] MEDS: Lithium Carbonate 300 MG CAPSULE 600 MG PO ×2 (08:37→20:02)
[2022-04-16] MEDS: OXcarbazepine 150 MG TABLET PO ×2 (08:37→20:01)
[2022-04-16] MEDS: Gabapentin 400 MG CAPSULE PO ×3 (08:38→20:03)
--- NOTE | 2022-04-16 10:34 | HO.PSYCHPN ---
Subjective Subjective Date of Service: 04/16/22 Reason For Visit: Depression, AH Interim History: Patient irritable today, citing high acuity in the milieu; she complains of auditory hallucinations which are very bothersome and also anxiety. She asks for PRNs and agrees to try a few different things including hydroxyzine, low-dose Seroquel and clonidine. Patient has suicidal ideation though no plans or intent Records from [facility] arrived. Neurology Physician reviewed cytology report regarding needle aspiration of left parotid mass on 04/07/22: Salivary gland neoplasm of uncertain malignant potential. Also noted, patient has follow-up appointment with surgical consult for excision Mental Status Exam Mental Status Exam Narrative: Pt is alert and oriented; behavior is cooperative, friendly and calm but tearful; patient is in emotional distress; dressed in casual attire with unkempt hair and marginal hygiene; mood is described as depressed... and irritated; affect congruent; eye contact appropriate; Speech is normal rate, volume and prosody and not pressured; no psychomotor agitation/retardation present; thought process is organized and goal directed; Thought content is on malignancy, tx; otherwise pertinent to relevant topics and without any delusional content, paranoid ideations or grandiosity; currently feels SI but no intent or plans; no HI. AH present; Patients insight and judgment are impaired. Diagnostics Vital Signs (24Hr): Vital Signs - 24 hr 04/15/22 20:00 Temperature 98 F Pulse Rate 79 Respiratory Rate 20 Blood Pressure 130/74 Pulse Oximetry 93 Oxygen Delivery Method Room Air BMI result Body Mass Index 37.1 Labs Results: 04/14/22 00:22 04/14/22 00:22 Medications Medications Current Medications Acetaminophen (Acetaminophen 325 Mg Tablet) 650 mg PO Q6H PRN PRN Reason: Headache/Pain Mild Scale (1-3) Last Admin: 04/15/22 09:24 Dose: 650 mg Al Hydroxide/Mg Hydroxide (Magnesium Hydrox/Alum Hydrox 30 Ml Oral.Susp) 30 ml PO Q6H PRN PRN Reason: Heartburn/Nausea Albuterol Sulfate (Albuterol Sulfate 90 Mcg 8 Gm Inhaler) 2 puff INHALE Q4H PRN PRN Reason: shortness of breath or wheezing Last Admin: 04/15/22 10:29 Dose: 2 puff Benztropine Mesylate (Benztropine Mesylate 1 Mg Tablet) 1 mg PO BID TEJA Last Admin: 04/16/22 08:36 Dose: 1 mg Capsaicin (Capsaicin 0.025% Cream 60 Gm Tube) 1 appl TOPICAL QID PRN; Protocol PRN Reason: leg pain Clonidine HCl (Clonidine Hcl 0.2 Mg Tablet) 0.2 mg PO BEDTIME [facility]; Protocol Last Admin: 04/15/22 20:43 Dose: 0.2 mg Cyanocobalamin (Cyanocobalamin (Vitamin B-12) 100 Mcg Tablet) 100 mcg PO DAILY [facility] Last Admin: 04/16/22 08:36 Dose: 100 mcg Ferrous Sulfate (Ferrous Sulfate 324 Mg Tablet.) 324 mg PO DAILY [facility] Last Admin: 04/16/22 08:36 Dose: 324 mg Fluticasone/Vilanterol (Fluticasone/Vilanterol 200/25 Blst.W.Dev) 1 puff INHALE RDAILY [facility] Last Admin: 04/16/22 08:36 Dose: 1 puff Gabapentin (Gabapentin 400 Mg Capsule) 400 mg PO TID [facility] Last Admin: 04/16/22 08:38 Dose: 400 mg Ibuprofen (Ibuprofen 800 Mg Tablet) 800 mg PO Q8H PRN PRN Reason: Pain, Mild (Pain Scale 1-3) Last Admin: 04/15/22 15:00 Dose: 800 mg [place] Carbonate ([place] Carbonate 300 Mg Capsule) 600 mg PO BID [facility] Last Admin: 04/16/22 08:37 Dose: 600 mg Magnesium Hydroxide (Milk Of Magnesia 30 Ml Oral.Susp) 30 ml PO DAILY PRN PRN Reason: Constipation Metronidazole (Metronidazole 500 Mg Tablet) 500 mg PO BID [facility] Stop: 04/21/22 14:03 Last Admin: 04/16/22 08:37 Dose: 500 mg Nicotine Polacrilex (Nicotine Polacrilex 2 Mg Gum) 4 mg BUCCAL Q2H PRN PRN Reason: Nicotine Cravings Olanzapine (Olanzapine 10 Mg Tablet) 10 mg PO BEDTIME [facility] Last Admin: 04/15/22 20:43 Dose: 10 mg Omeprazole (Omeprazole 20 Mg Capsule.) 20 mg PO DAILY@0630 [facility] Last Admin: 04/16/22 07:01 Dose: 20 mg Oxcarbazepine (Oxcarbazepine 150 Mg Tablet) 150 mg PO BID [facility] Last Admin: 04/16/22 08:37 Dose: 150 mg Ropinirole HCl (Ropinirole Hcl 0.5 Mg Tablet) 0.5 mg PO BEDTIME [facility] Last Admin: 04/15/22 20:43 Dose: 0.5 mg Sertraline HCl (Sertraline Hcl 50 Mg Tablet) 50 mg PO DAILY [facility] Last Admin: 04/16/22 08:37 Dose: 50 mg Tiotropium [place] (Tiotropium [place] 18 Mcg Cap.W.Dev) 1 puff INHALE RDAILY [facility] Last Admin: 04/16/22 08:36 Dose: 1 puff Trazodone HCl (Trazodone Hcl 100 Mg Tablet) 200 mg PO BEDTIME [facility] Last Admin: 04/15/22 20:43 Dose: 200 mg Valacyclovir HCl (Valacyclovir Hcl 1,000 Mg Tablet) 1,000 mg PO BID [facility] Last Admin: 04/16/22 08:37 Dose: 1,000 mg Vitamin D (Cholecalciferol (Vitamin D3) 25 Mcg Tablet) 25 mcg PO DAILY [facility] Last Admin: 04/16/22 08:36 Dose: 25 mcg Allergies Allergies Allergy/AdvReac Type Severity Reaction Status Date / Time aspirin [Aspirin] Allergy Severe HIVES,THROAT Verified 10/13/21 04:51 SWELLS bee pollen [BEE STINGS] Allergy Severe ANAPHYLAXIS Verified 10/13/21 04:51 diphenhydramine Allergy Severe hives, Verified 10/13/21 04:51 [From BENADRYL ALLERGY] throat swells Penicillins [PCN] Allergy Severe HIVES Verified 10/13/21 04:51 THROAT SWELLS Sulfa (Sulfonamide Allergy Intermediate HIVES Verified 10/13/21 04:51 Antibiotics) [SULFA (SULFONAMIDE ANTIBIOTICS)] tramadol [TRAMADOL] Allergy Intermediate ITCHING Verified 10/13/21 04:51 latex [LATEX] Allergy Unknown UNKNOWN Verified 10/13/21 04:51 penicillin G Allergy Unknown Unknown Verified 10/13/21 04:51 levofloxacin [From Levaquin] Allergy Hives Verified 10/13/21 04:51 hydroxyzine AdvReac Severe restless Verified 01/27/22 19:57 legs seafood AdvReac Stomach Verified 03/17/22 12:07 Upset bee stings Allergy Unknown Unknown Uncoded 10/13/21 04:51 DairyCare Allergy Unknown Unknown Uncoded 10/13/21 04:51 sulfa drugs Allergy Unknown Unknown Uncoded 10/13/21 04:51 Assessment & Plan Assessment & Plan (1) Bipolar I disorder: Status: Acute Code(s): F31.9 - Bipolar disorder, unspecified (2) Neoplasm of parotid gland: Status: Acute Code(s): D49.0 - Neoplasm of unspecified behavior of digestive system (3) PTSD (post-traumatic stress disorder): Status: Acute Code(s): F43.10 - Post-traumatic stress disorder, unspecified (4) Borderline personality disorder: Status: Acute Code(s): F60.3 - Borderline personality disorder (5) Asthma-COPD overlap syndrome: Status: Acute Code(s): J44.9 - Chronic obstructive pulmonary disease, unspecified (6) Trichomonas infection: Status: Acute Code(s): A59.9 - Trichomoniasis, unspecified (7) FABIOLA (obstructive sleep apnea): Status: Acute Code(s): G47.33 - Obstructive sleep apnea (adult) (pediatric) (8) Pseudoseizures: Status: Acute Code(s): 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 Patient said she was at [facility] for the past 3 weeks during which time she was diagnosed with a parotid gland malignancy. She was discharged about 3 days ago, felt depressed, stop taking her medications and relapsed into substance abuse. Records from [facility] arrived. Neurology Physician reviewed cytology report regarding needle aspiration of left parotid mass on 04/07/22: Salivary gland neoplasm of uncertain malignant potential. Also noted, patient has follow-up appointment with surgical consult for excision PLAN: CV Q 15 minute checks Restart home meds Patient not in withdrawal I spent minutes with the patient and/or on the patient floor today, greater than?50% of which was spent counseling/coordinating care. Patient educated on: diagnosis Informed Consent: understands Reason for contiued inpatient stay Substantial Risk for: rapid decompensation
[2022-04-16] MEDS: Albuterol/Iprat 2.5/0.5MG 3 ML AMPUL.NEB INHALE (18:23)
[2022-04-16 18:26] VITALS: PULSE 76; RESP 18; O2SAT 94
[2022-04-16] MEDS: cloNIDine HCL 0.1 MG TABLET PO (18:39)
[2022-04-16 19:57] VITALS: BP 106/54; PULSE 88; RESP 20; TEMP 36.9; O2SAT 95
[2022-04-16] MEDS: traZODone HCL 100 MG TABLET 200 MG PO (20:01)
[2022-04-16] MEDS: cloNIDine HCL 0.2 MG TABLET PO (20:02)
[2022-04-16] MEDS: rOPINIRole HCL 0.5 MG TABLET PO (20:03)
[2022-04-16] MEDS: OLANZapine 10 MG TABLET PO (20:03)
[2022-04-17] MEDS: Omeprazole 20 MG CAPSULE.DR PO (06:30)
[2022-04-17 06:42] VITALS: BP 101/67; PULSE 70; RESP 16; TEMP 36.8; O2SAT 95
[2022-04-17] MEDS: OXcarbazepine 150 MG TABLET PO ×2 (08:33→20:25)
[2022-04-17] MEDS: Ferrous Sulfate 324 MG TABLET.DR PO (08:33)
[2022-04-17] MEDS: Sertraline HCL 50 MG TABLET PO (08:33)
[2022-04-17] MEDS: metroNIDAZOLE 500 MG TABLET PO ×2 (08:33→20:25)
[2022-04-17] MEDS: valACYclovir HCL 1,000 MG TABLET 1000 MG PO ×2 (08:33→20:25)
[2022-04-17] MEDS: Fluticasone/Vilanterol 200/25 BLST.W.DEV 1 PUFF INHALE (08:33)
[2022-04-17] MEDS: Benztropine Mesylate 1 MG TABLET PO ×2 (08:33→20:25)
[2022-04-17] MEDS: Lithium Carbonate 300 MG CAPSULE 600 MG PO ×2 (08:33→20:25)
[2022-04-17] MEDS: Cholecalciferol (Vitamin D3) 25 MCG TABLET PO (08:33)
[2022-04-17] MEDS: Gabapentin 400 MG CAPSULE PO ×3 (08:33→20:25)
[2022-04-17] MEDS: Cyanocobalamin (Vitamin B-12) 100 MCG TABLET PO (08:33)
[2022-04-17] MEDS: QUEtiapine Fumarate 25 MG TABLET PO (09:25)
[2022-04-17] MEDS: hydrOXYzine HCL 25 MG TABLET PO (12:55)
--- NOTE | 2022-04-17 13:48 | P.PNPSI_ITS ---
Subjective Subjective Date of Service: 04/17/22 Reason For Visit: Depression, AH Interim History: Patient still feeling anxious and irritable with suicidal thinking; also having auditory hallucinations. Patient again had asthma attack needing her rescue inhaler and DuoNebs. She agreed to have scheduled duonebs since her asthma attacks have been daily. She also complained of b/l lower limb edema which she says is chronic but looks worse. Stucco Worker examined in patient does have +2 humaira ing edema bilateral lower limbs. Will monitor Mental Status Exam Mental Status Exam Narrative: Pt is alert and oriented; behavior is cooperative; some emotional distress; dressed in casual attire with unkempt hair but adequate hygiene; mood is described as depressed affect congruent; eye contact appropriate; Speech is normal rate, volume and prosody and not pressured; no psychomotor agitation/retardation present; thought process is organized and goal directed; Thought content is on malignancy, tx; otherwise pertinent to relevant topics and without any delusional content, paranoid ideations or grandiosity; currently feels SI but no intent or plans; no HI. AH present; Patients insight and judgment are impaired. Diagnostics Vital Signs (24Hr): Vital Signs - 24 hr 04/16/22 18:26 04/16/22 19:57 04/17/22 06:42 Temperature 98.5 F 98.2 F Pulse Rate 76 88 70 Respiratory Rate 18 20 16 Blood Pressure 106/54 L 101/67 Pulse Oximetry 95 95 Oxygen Delivery Method Room Air Room Air BMI result Body Mass Index 37.1 Labs Results: 04/14/22 00:22 04/14/22 00:22 Medications Medications Current Medications Acetaminophen (Acetaminophen 325 Mg Tablet) 650 mg PO Q6H PRN PRN Reason: Headache/Pain Mild Scale (1-3) Last Admin: 04/15/22 09:24 Dose: 650 mg Al Hydroxide/Mg Hydroxide (Magnesium Hydrox/Alum Hydrox 30 Ml Oral.Susp) 30 ml PO Q6H PRN PRN Reason: Heartburn/Nausea Albuterol Sulfate (Albuterol Sulfate 90 Mcg 8 Gm Inhaler) 2 puff INHALE Q4H PRN PRN Reason: shortness of breath or wheezing Last Admin: 04/15/22 10:29 Dose: 2 puff Albuterol/Ipratropium (Albuterol/Iprat 2.5/0.5mg 3 Ml Ampul.Neb) 3 ml INHALE ONCE STA Stop: 04/17/22 13:44 Albuterol/Ipratropium (Albuterol/Iprat 2.5/0.5mg 3 Ml Ampul.Neb) 1.5 ml INHALE BID@0900,1700 [facility] Benztropine Mesylate (Benztropine Mesylate 1 Mg Tablet) 1 mg PO BID [facility] Last Admin: 04/17/22 08:33 Dose: 1 mg Capsaicin (Capsaicin 0.025% Cream 60 Gm Tube) 1 appl TOPICAL QID PRN; Protocol PRN Reason: leg pain Clonidine HCl (Clonidine Hcl 0.2 Mg Tablet) 0.2 mg PO BEDTIME [facility]; Protocol Last Admin: 04/16/22 20:02 Dose: 0.2 mg Clonidine HCl (Clonidine Hcl 0.1 Mg Tablet) 0.1 mg PO Q6H PRN; Protocol PRN Reason: Anxiety Last Admin: 04/16/22 18:39 Dose: 0.1 mg Cyanocobalamin (Cyanocobalamin (Vitamin B-12) 100 Mcg Tablet) 100 mcg PO DAILY [facility] Last Admin: 04/17/22 08:33 Dose: 100 mcg Ferrous Sulfate (Ferrous Sulfate 324 Mg Tablet.Dr) 324 mg PO DAILY [facility] Last Admin: 04/17/22 08:33 Dose: 324 mg Fluticasone/Vilanterol (Fluticasone/Vilanterol 200/25 Blst.W.Dev) 1 puff INHALE RDAILY [facility] Last Admin: 04/17/22 08:33 Dose: 1 puff Gabapentin (Gabapentin 400 Mg Capsule) 400 mg PO TID [facility] Last Admin: 04/17/22 08:33 Dose: 400 mg Hydroxyzine HCl (Hydroxyzine Hcl 25 Mg Tablet) 25 mg PO Q6H PRN PRN Reason: Anxiety Last Admin: 04/17/22 12:55 Dose: 25 mg Ibuprofen (Ibuprofen 800 Mg Tablet) 800 mg PO Q8H PRN PRN Reason: Pain, Mild (Pain Scale 1-3) Last Admin: 04/15/22 15:00 Dose: 800 mg [place] Carbonate ([place] Carbonate 300 Mg Capsule) 600 mg PO BID [facility] Last Admin: 04/17/22 08:33 Dose: 600 mg Magnesium Hydroxide (Milk Of Magnesia 30 Ml Oral.Susp) 30 ml PO DAILY PRN PRN Reason: Constipation Metronidazole (Metronidazole 500 Mg Tablet) 500 mg PO BID [facility] Stop: 04/21/22 14:03 Last Admin: 04/17/22 08:33 Dose: 500 mg Nicotine Polacrilex (Nicotine Polacrilex 2 Mg Gum) 4 mg BUCCAL Q2H PRN PRN Reason: Nicotine Cravings Olanzapine (Olanzapine 10 Mg Tablet) 10 mg PO BEDTIME [facility] Last Admin: 04/16/22 20:03 Dose: 10 mg Omeprazole (Omeprazole 20 Mg Capsule.Dr) 20 mg PO DAILY@0630 [facility] Last Admin: 04/17/22 06:30 Dose: 20 mg Oxcarbazepine (Oxcarbazepine 150 Mg Tablet) 150 mg PO BID [facility] Last Admin: 04/17/22 08:33 Dose: 150 mg Quetiapine Fumarate (Quetiapine Fumarate 25 Mg Tablet) 25 mg PO Q4H PRN PRN Reason: anxiety Last Admin: 04/17/22 09:25 Dose: 25 mg Ropinirole HCl (Ropinirole Hcl 0.5 Mg Tablet) 0.5 mg PO BEDTIME [facility] Last Admin: 04/16/22 20:03 Dose: 0.5 mg Sertraline HCl (Sertraline Hcl 50 Mg Tablet) 50 mg PO DAILY [facility] Last Admin: 04/17/22 08:33 Dose: 50 mg Tiotropium [place] (Tiotropium [place] 18 Mcg Cap.W.Dev) 1 puff INHALE RDAILY [facility] Last Admin: 04/17/22 08:51 Dose: 1 puff Trazodone HCl (Trazodone Hcl 100 Mg Tablet) 200 mg PO BEDTIME [facility] Last Admin: 04/16/22 20:01 Dose: 200 mg Valacyclovir HCl (Valacyclovir Hcl 1,000 Mg Tablet) 1,000 mg PO BID [facility] Last Admin: 04/17/22 08:33 Dose: 1,000 mg Vitamin D (Cholecalciferol (Vitamin D3) 25 Mcg Tablet) 25 mcg PO DAILY [facility] Last Admin: 04/17/22 08:33 Dose: 25 mcg Allergies Allergies Allergy/AdvReac Type Severity Reaction Status Date / Time aspirin [Aspirin] Allergy Severe HIVES,THROAT Verified 10/13/21 04:51 SWELLS bee pollen [BEE STINGS] Allergy Severe ANAPHYLAXIS Verified 10/13/21 04:51 diphenhydramine Allergy Severe hives, Verified 10/13/21 04:51 [From BENADRYL ALLERGY] throat swells Penicillins [PCN] Allergy Severe HIVES Verified 10/13/21 04:51 THROAT SWELLS Sulfa (Sulfonamide Allergy Intermediate HIVES Verified 10/13/21 04:51 Antibiotics) [SULFA (SULFONAMIDE ANTIBIOTICS)] tramadol [TRAMADOL] Allergy Intermediate ITCHING Verified 10/13/21 04:51 latex [LATEX] Allergy Unknown UNKNOWN Verified 10/13/21 04:51 penicillin G Allergy Unknown Unknown Verified 10/13/21 04:51 levofloxacin [From Levaquin] Allergy Hives Verified 10/13/21 04:51 hydroxyzine AdvReac Severe restless Verified 01/27/22 19:57 legs seafood AdvReac Stomach Verified 03/17/22 12:07 Upset bee stings Allergy Unknown Unknown Uncoded 10/13/21 04:51 DairyCare Allergy Unknown Unknown Uncoded 10/13/21 04:51 sulfa drugs Allergy Unknown Unknown Uncoded 10/13/21 04:51 Assessment & Plan Assessment & Plan (1) Bipolar I disorder: Status: Acute Code(s): F31.9 - Bipolar disorder, unspecified (2) Neoplasm of parotid gland: Status: Acute Code(s): D49.0 - Neoplasm of unspecified behavior of digestive system (3) PTSD (post-traumatic stress disorder): Status: Acute Code(s): F43.10 - Post-traumatic stress disorder, unspecified (4) Borderline personality disorder: Status: Acute Code(s): F60.3 - Borderline personality disorder (5) Asthma-COPD overlap syndrome: Status: Acute Code(s): J44.9 - Chronic obstructive pulmonary disease, unspecified (6) Trichomonas infection: Status: Acute Code(s): A59.9 - Trichomoniasis, unspecified (7) FABIOLA (obstructive sleep apnea): Status: Acute Code(s): G47.33 - Obstructive sleep apnea (adult) (pediatric) (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 Patient said she was at [facility] for the past 3 weeks during which time she was diagnosed with a parotid gland malignancy. She was discharged about 3 days ago, felt depressed, stop taking her medications and relapsed into substance abuse. Records from [facility] arrived. Stucco Worker reviewed cytology report regarding needle aspiration of left parotid mass on 04/07/22: Salivary gland neoplasm of uncertain malignant potential. Also noted, patient has follow-up appointment with surgical consult for excision 04/17 continued depression with intermittent SI; continued AH. Has had asthma attack past 2 days agrees to schedule DuoNebs PLAN: CV Q 15 minute checks Schedule DuoNebs 1.5 mL b.i.d. since patient has had asthma attacks 2 days in a row Restart home meds Patient informs that multiple women under mother's side have had cancer I spent minutes with the patient and/or on the patient floor today, greater than?50% of which was spent counseling/coordinating care. Patient educated on: medication risk/benefits and medical condition Informed Consent: understands Reason for contiued inpatient stay Substantial Risk for: rapid decompensation
[2022-04-17] MEDS: Albuterol/Iprat 2.5/0.5MG 3 ML AMPUL.NEB INHALE (14:59)
[2022-04-17 15:06] VITALS: PULSE 72; RESP 18; O2SAT 95
[2022-04-17 17:55] VITALS: BP 138/77; PULSE 88; RESP 16; TEMP 36.8; O2SAT 94
[2022-04-17] MEDS: cloNIDine HCL 0.2 MG TABLET PO (20:25)
[2022-04-17] MEDS: traZODone HCL 100 MG TABLET 200 MG PO (20:25)
[2022-04-17] MEDS: rOPINIRole HCL 0.5 MG TABLET PO (20:25)
[2022-04-17] MEDS: OLANZapine 10 MG TABLET PO (20:25)
[2022-04-18 06:00] VITALS: BP 123/62; PULSE 74; RESP 16; TEMP 37.2; O2SAT 94
[2022-04-18] MEDS: valACYclovir HCL 1,000 MG TABLET 1000 MG PO ×2 (08:06→21:59)
[2022-04-18] MEDS: Benztropine Mesylate 1 MG TABLET PO ×2 (08:06→21:57)
[2022-04-18] MEDS: Ferrous Sulfate 324 MG TABLET.DR PO (08:06)
[2022-04-18] MEDS: Fluticasone/Vilanterol 200/25 BLST.W.DEV 1 PUFF INHALE (08:06)
[2022-04-18] MEDS: Cyanocobalamin (Vitamin B-12) 100 MCG TABLET PO (08:06)
[2022-04-18] MEDS: Omeprazole 20 MG CAPSULE.DR PO (08:06)
[2022-04-18] MEDS: Cholecalciferol (Vitamin D3) 25 MCG TABLET PO (08:06)
[2022-04-18] MEDS: Sertraline HCL 50 MG TABLET PO (08:06)
[2022-04-18] MEDS: metroNIDAZOLE 500 MG TABLET PO ×2 (08:06→21:58)
[2022-04-18] MEDS: Lithium Carbonate 300 MG CAPSULE 600 MG PO ×2 (08:07→21:58)
[2022-04-18] MEDS: Gabapentin 400 MG CAPSULE PO ×3 (08:07→19:54)
[2022-04-18] MEDS: OXcarbazepine 150 MG TABLET PO ×2 (08:07→21:58)
[2022-04-18 10:27] VITALS: RESP 18
[2022-04-18] MEDS: Albuterol/Iprat 2.5/0.5MG 3 ML AMPUL.NEB 1.5 ML INHALE ×2 (10:27→19:18)
--- NOTE | 2022-04-18 16:08 | HO.PSYCHPN ---
Subjective Subjective Date of Service: 04/18/22 Reason For Visit: Depression, AH Interim History: Patient reports that her mood is a little better and that she does not have suicidal ideation. She does have some AH but says it is less frequent and less intense. Patient says she is feeling tired today. Breathing a little easier Mental Status Exam Mental Status Exam Narrative: Pt is alert and oriented; behavior is cooperative, calm; dressed in casual attire with hair pulled back and adequate hygiene, uses a walker; mood is described as little better affect congruent, more calm; eye contact appropriate; Speech is normal rate, volume and prosody and not pressured; no psychomotor agitation/retardation present; thought process is organized and goal directed; Thought content is on dealing with malignancy, tx; otherwise pertinent to relevant topics and without any delusional content, paranoid ideations or grandiosity; No SI; no HI. AH present but less; Patients insight and judgment are impaired. Diagnostics Vital Signs (24Hr): Vital Signs - 24 hr 04/17/22 17:55 04/18/22 06:00 04/18/22 10:27 Temperature 98.3 F 98.9 F Pulse Rate 88 74 Respiratory Rate 16 16 18 Blood Pressure 138/77 123/62 Pulse Oximetry 94 94 Oxygen Delivery Method Room Air Room Air BMI result Body Mass Index 37.1 Labs Results: 04/14/22 00:22 04/14/22 00:22 Medications Medications Current Medications Acetaminophen (Acetaminophen 325 Mg Tablet) 650 mg PO Q6H PRN PRN Reason: Headache/Pain Mild Scale (1-3) Last Admin: 04/15/22 09:24 Dose: 650 mg Al Hydroxide/Mg Hydroxide (Magnesium Hydrox/Alum Hydrox 30 Ml Oral.Susp) 30 ml PO Q6H PRN PRN Reason: Heartburn/Nausea Albuterol Sulfate (Albuterol Sulfate 90 Mcg 8 Gm Inhaler) 2 puff INHALE Q4H PRN PRN Reason: shortness of breath or wheezing Last Admin: 04/15/22 10:29 Dose: 2 puff Albuterol/Ipratropium (Albuterol/Iprat 2.5/0.5mg 3 Ml Ampul.Neb) 1.5 ml INHALE BID@0900,1700 [facility] Last Admin: 04/18/22 10:27 Dose: 1.5 ml Benztropine Mesylate (Benztropine Mesylate 1 Mg Tablet) 1 mg PO BID [facility] Last Admin: 04/18/22 08:06 Dose: 1 mg Capsaicin (Capsaicin 0.025% Cream 60 Gm Tube) 1 appl TOPICAL QID PRN; Protocol PRN Reason: leg pain Clonidine HCl (Clonidine Hcl 0.2 Mg Tablet) 0.2 mg PO BEDTIME [facility]; Protocol Last Admin: 04/17/22 20:25 Dose: 0.2 mg Clonidine HCl (Clonidine Hcl 0.1 Mg Tablet) 0.1 mg PO Q6H PRN; Protocol PRN Reason: Anxiety Last Admin: 04/16/22 18:39 Dose: 0.1 mg Cyanocobalamin (Cyanocobalamin (Vitamin B-12) 100 Mcg Tablet) 100 mcg PO DAILY [facility] Last Admin: 04/18/22 08:06 Dose: 100 mcg Ferrous Sulfate (Ferrous Sulfate 324 Mg Tablet.Dr) 324 mg PO DAILY [facility] Last Admin: 04/18/22 08:06 Dose: 324 mg Fluticasone/Vilanterol (Fluticasone/Vilanterol 200/25 Blst.W.Dev) 1 puff INHALE RDAILY [facility] Last Admin: 04/18/22 08:06 Dose: 1 puff Gabapentin (Gabapentin 400 Mg Capsule) 400 mg PO TID [facility] Last Admin: 04/18/22 14:19 Dose: 400 mg Hydroxyzine HCl (Hydroxyzine Hcl 25 Mg Tablet) 25 mg PO Q6H PRN PRN Reason: Anxiety Last Admin: 04/17/22 12:55 Dose: 25 mg Ibuprofen (Ibuprofen 800 Mg Tablet) 800 mg PO Q8H PRN PRN Reason: Pain, Mild (Pain Scale 1-3) Last Admin: 04/15/22 15:00 Dose: 800 mg [place] Carbonate ([place] Carbonate 300 Mg Capsule) 600 mg PO BID [facility] Last Admin: 04/18/22 08:07 Dose: 600 mg Magnesium Hydroxide (Milk Of Magnesia 30 Ml Oral.Susp) 30 ml PO DAILY PRN PRN Reason: Constipation Metronidazole (Metronidazole 500 Mg Tablet) 500 mg PO BID [facility] Stop: 04/21/22 14:03 Last Admin: 04/18/22 08:06 Dose: 500 mg Nicotine Polacrilex (Nicotine Polacrilex 2 Mg Gum) 4 mg BUCCAL Q2H PRN PRN Reason: Nicotine Cravings Olanzapine (Olanzapine 10 Mg Tablet) 10 mg PO BEDTIME [facility] Last Admin: 04/17/22 20:25 Dose: 10 mg Omeprazole (Omeprazole 20 Mg Capsule.Dr) 20 mg PO DAILY@0630 [facility] Last Admin: 04/18/22 08:06 Dose: 20 mg Oxcarbazepine (Oxcarbazepine 150 Mg Tablet) 150 mg PO BID [facility] Last Admin: 04/18/22 08:07 Dose: 150 mg Quetiapine Fumarate (Quetiapine Fumarate 25 Mg Tablet) 25 mg PO Q4H PRN PRN Reason: anxiety Last Admin: 04/17/22 09:25 Dose: 25 mg Ropinirole HCl (Ropinirole Hcl 0.5 Mg Tablet) 0.5 mg PO BEDTIME [facility] Last Admin: 04/17/22 20:25 Dose: 0.5 mg Sertraline HCl (Sertraline Hcl 50 Mg Tablet) 50 mg PO DAILY [facility] Last Admin: 04/18/22 08:06 Dose: 50 mg Tiotropium [place] (Tiotropium [place] 18 Mcg Cap.W.Dev) 1 puff INHALE RDAILY [facility] Last Admin: 04/18/22 08:06 Dose: 1 puff Trazodone HCl (Trazodone Hcl 100 Mg Tablet) 200 mg PO BEDTIME [facility] Last Admin: 04/17/22 20:25 Dose: 200 mg Valacyclovir HCl (Valacyclovir Hcl 1,000 Mg Tablet) 1,000 mg PO BID [facility] Last Admin: 04/18/22 08:06 Dose: 1,000 mg Vitamin D (Cholecalciferol (Vitamin D3) 25 Mcg Tablet) 25 mcg PO DAILY [facility] Last Admin: 04/18/22 08:06 Dose: 25 mcg Allergies Allergies Allergy/AdvReac Type Severity Reaction Status Date / Time aspirin [Aspirin] Allergy Severe HIVES,THROAT Verified 10/13/21 04:51 SWELLS bee pollen [BEE STINGS] Allergy Severe ANAPHYLAXIS Verified 10/13/21 04:51 diphenhydramine Allergy Severe hives, Verified 10/13/21 04:51 [From BENADRYL ALLERGY] throat swells Penicillins [PCN] Allergy Severe HIVES Verified 10/13/21 04:51 THROAT SWELLS Sulfa (Sulfonamide Allergy Intermediate HIVES Verified 10/13/21 04:51 Antibiotics) [SULFA (SULFONAMIDE ANTIBIOTICS)] tramadol [TRAMADOL] Allergy Intermediate ITCHING Verified 10/13/21 04:51 latex [LATEX] Allergy Unknown UNKNOWN Verified 10/13/21 04:51 penicillin G Allergy Unknown Unknown Verified 10/13/21 04:51 levofloxacin [From Levaquin] Allergy Hives Verified 10/13/21 04:51 hydroxyzine AdvReac Severe restless Verified 01/27/22 19:57 legs seafood AdvReac Stomach Verified 03/17/22 12:07 Upset bee stings Allergy Unknown Unknown Uncoded 10/13/21 04:51 DairyCare Allergy Unknown Unknown Uncoded 10/13/21 04:51 sulfa drugs Allergy Unknown Unknown Uncoded 10/13/21 04:51 Assessment & Plan Assessment & Plan (1) Bipolar I disorder: Status: Acute Code(s): F31.9 - Bipolar disorder, unspecified (2) Neoplasm of parotid gland: Status: Acute Code(s): D49.0 - Neoplasm of unspecified behavior of digestive system (3) PTSD (post-traumatic stress disorder): Status: Acute Code(s): F43.10 - Post-traumatic stress disorder, unspecified (4) Borderline personality disorder: Status: Acute Code(s): F60.3 - Borderline personality disorder (5) Asthma-COPD overlap syndrome: Status: Acute Code(s): J44.9 - Chronic obstructive pulmonary disease, unspecified (6) Trichomonas infection: Status: Acute Code(s): A59.9 - Trichomoniasis, unspecified (7) FABIOLA (obstructive sleep apnea): Status: Acute Code(s): G47.33 - Obstructive sleep apnea (adult) (pediatric) (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 Patient said she was at [facility] for the past 3 weeks during which time she was diagnosed with a parotid gland malignancy. She was discharged about 3 days ago, felt depressed, stop taking her medications and relapsed into substance abuse. Records from [facility] arrived. Adjustment Supervisor reviewed cytology report regarding needle aspiration of left parotid mass on 04/07/22: Salivary gland neoplasm of uncertain malignant potential. Also noted, patient has follow-up appointment with surgical consult for excision 04/17 continued depression with intermittent SI; continued AH. Has had asthma attack past 2 days agrees to schedule DuoNebs 04/18 mood a little better, no SI PLAN: CV Q 15 minute checks Labs ordered for 04/19 Schedule DuoNebs 1.5 mL b.i.d. since patient has had asthma attacks 2 days in a row Restart home meds Patient informs that multiple women under mother's side have had cancer I spent minutes with the patient and/or on the patient floor today, greater than?50% of which was spent counseling/coordinating care. Reason for contiued inpatient stay Substantial Risk for: rapid decompensation
[2022-04-18] MEDS: Loperamide HCl 2 MG CAPSULE PO (16:56)
[2022-04-18 18:00] VITALS: BP 124/78; PULSE 85; RESP 24; TEMP 36.2; O2SAT 96
[2022-04-18 19:18] VITALS: PULSE 92; RESP 16; O2SAT 93
[2022-04-18] MEDS: Ibuprofen 800 MG TABLET PO (19:49)
[2022-04-18] MEDS: rOPINIRole HCL 0.5 MG TABLET PO (21:58)
[2022-04-18] MEDS: cloNIDine HCL 0.2 MG TABLET PO (21:58)
[2022-04-18] MEDS: OLANZapine 10 MG TABLET PO (21:58)
[2022-04-18] MEDS: traZODone HCL 100 MG TABLET 200 MG PO (21:59)
[2022-04-19] VITALS (7 sets, daily range): BP systolic 103–138; BP diastolic 55–71; PULSE 77–90; RESP 18–20; TEMP 36.3–36.5; O2SAT 92–97
--- NOTE | 2022-04-19 | ECG_ITS ---
Test Reason : cp Blood Pressure : / mmHG Vent. Rate : 080 BPM Atrial Rate : 080 BPM P-R Int : 136 ms QRS Dur : 086 ms QT Int : 380 ms P-R-T Axes : 026 046 019 degrees QTc Int : 438 ms Normal sinus rhythm Nonspecific T wave abnormality Abnormal ECG No previous ECGs available Referred By: Katelyn Macias Electronically Signed By:VAIBHAV KILLIAN MD
--- NOTE | 2022-04-19 00:23 | PM.EVENT ---
Event Note Date of Service: 04/19/22 Event Note: a rapid response was called on the pt due to chest pain the pain woke her up from sleep reports it to be midsternal, radiating to left arm. she reports the pain to be 10/10, sharp, stabbing as well as heavy. worst with deep inspiration and movement. EKG shows non-specific EKG changes. Given one dose of SL nitro with mild relief. Troponin, BMP, CBC pending Pt vitals otherwise stable sating 92% on RA, HR of 80 and BP of 103/55 after nitro Oxy for pain control 1:05 AM - Labs show no abnormality. Trop negative pt pain free at this time will keep on BHU
[2022-04-19] MEDS: Nitroglycerin 0.4 MG TAB.SUBL SUBLINGUAL (00:25)
[2022-04-19] MEDS: Magnesium Hydrox/Alum Hydrox 30 ML ORAL.SUSP PO (00:28)
[2022-04-19] MEDS: oxyCODONE HCl Immed Release 5 MG TABLET PO (00:28)
--- NOTE | 2022-04-19 00:34 | PC.NURSE ---
RAPID RESPONSE CALLED AT APPROXIMATELY MIDNIGHT. PT APPEARED TO BE SLIGHTLY DIAPHORETIC WITH SHARP PAIN IN HER CHEST, RADIATING DOWN HER LEFT ARM. PT HAD SHORTNESS OF BREATH WITH INCREASED PAIN UPON INHALATION. SHE COULD NOT LIFT HER LEFT ARM ABOVE HER HEAD DUE TO PAIN. VITAL SIGNS WERE 90, 95%, 138/71. RAPID RESPONSE WAS INITIATED. PT WAS EVALUATED BY MD, LABS WERE DRAWN, EKG WAS DONE, AND PT WAS TAKEN FOR CHEST XRAY. NITRO WAS GIVEN WITH SOME EFFECT. PTS VITALS AFTER NITRO ADMINISTRATION WERE 80, 92%, 103/55. PT WAS GIVEN OXYCODONE 5 AND MAALOX. WILL CONTINUE TO MONITOR.
[2022-04-19 00:38] LABS: MANUAL DIFF FLAG NO
[2022-04-19 00:39] LABS: Basophils Absolute Auto 0.1 X10*3/uL (0.0-0.2); Basophils Percent Auto 0.8 % (0-2); Eosinophils Absolute Auto 0.2 X10*3/uL (0.0-0.4); Eosinophils Percent Auto 2.4 % (0-4); Hematocrit 37.4 % (37.0-47.0); Hemoglobin 12.1 g/dl (12.0-16.0); Imm Gran Abs Auto 0.03 X10*3/uL (0.00-0.03); Imm Gran Pct Auto 0.3 % (0.0-0.4); Lymphocytes Absolute Auto 3.1 X10*3/uL (1.2-4.9); Lymphocytes Percent Auto 33.4 % (20-40); Mean Corpuscular HGB Conc 32.4 g/dl (31.0-35.0); Mean Corpuscular Hemoglobin 30.1 pg (27.0-33.0); Mean Platelet Volume 9.8 fL (9.4-12.3); Monocytes Absolute Auto 0.6 X10*3/uL (0.1-1.2); Monocytes Percent Auto 6.2 % (2-11); Neutrophils Absolute Auto 5.2 x10*3/uL (2.0-8.3); Neutrophils Percent Auto 56.9 % (45-73); Platelet Count 251 X10*3/uL (160-400); Red Blood Count 4.02 X10*6/uL (4.20-5.50); Red Cell Distribution Width 13.2 % (11.0-16.0); White Blood Count 9.1 X10*3/uL (4.8-10.8)
[2022-04-19 00:58] LABS: Troponin-I High Sensitivity < 3.5 ng/L (<3.5-17.0)
[2022-04-19 01:14] LABS: Anion Gap 12 (12-20); Blood Urea Nitrogen 21 mg/dL (9-16); Calcium 9.8 mg/dL (8.4-10.2); Carbon Dioxide 27 mmol/L (22-29); Chloride 102 mmol/L (96-108); Creatinine Clr Calc Pharmacy 101.5; Estimated Glomerular Filt Rate > 60; Glucose Random 113 mg/dL (60-115); Potassium 4.3 mmol/L (3.3-5.1); Sodium 137 mmol/L (135-145)
[2022-04-19] MEDS: Omeprazole 20 MG CAPSULE.DR PO (06:18)
[2022-04-19] MEDS: Benztropine Mesylate 1 MG TABLET PO ×2 (08:01→21:30)
[2022-04-19] MEDS: metroNIDAZOLE 500 MG TABLET PO ×2 (08:01→21:33)
[2022-04-19] MEDS: Sertraline HCL 50 MG TABLET PO (08:01)
[2022-04-19] MEDS: Cyanocobalamin (Vitamin B-12) 100 MCG TABLET PO (08:01)
[2022-04-19] MEDS: OXcarbazepine 150 MG TABLET PO ×2 (08:01→21:34)
[2022-04-19] MEDS: Ferrous Sulfate 324 MG TABLET.DR PO (08:01)
[2022-04-19] MEDS: Lithium Carbonate 300 MG CAPSULE 600 MG PO ×2 (08:01→21:30)
[2022-04-19] MEDS: valACYclovir HCL 1,000 MG TABLET 1000 MG PO ×2 (08:01→21:34)
[2022-04-19] MEDS: Gabapentin 400 MG CAPSULE PO ×3 (08:01→21:33)
[2022-04-19] MEDS: Fluticasone/Vilanterol 200/25 BLST.W.DEV 1 PUFF INHALE (08:01)
[2022-04-19] MEDS: Cholecalciferol (Vitamin D3) 25 MCG TABLET PO (08:01)
[2022-04-19 08:17] LABS: Alanine Aminotransferase 24 U/L (0-31); Albumin Level 4.3 g/dL (3.5-5.0); Alkaline Phosphatase 70 U/L (39-117); Anion Gap 13 (12-20); Aspartate Amino Transferase 15 U/L (5-31); Bilirubin Direct < 0.2 mg/dL (0.0-0.5); Bilirubin Total 0.3 mg/dL (0.0-1.0); Blood Urea Nitrogen 16 mg/dL (9-16); Carbon Dioxide 27 mmol/L (22-29); Chloride 103 mmol/L (96-108); Creatinine Clr Calc Pharmacy 108.3; Estimated Glomerular Filt Rate > 60; Potassium 4.2 mmol/L (3.3-5.1); Sodium 139 mmol/L (135-145); Total Protein 6.6 g/dL (6.5-8.0)
[2022-04-19 08:19] LABS: Lithium 0.88 mmol/L (0.60-1.20)
[2022-04-19] MEDS: hydrOXYzine HCL 25 MG TABLET PO ×3 (09:31→23:52)
[2022-04-19 09:41] LABS: Free T4 (Free Thyroxine) 0.91 ng/dL (0.71-1.85)
[2022-04-19] MEDS: Albuterol/Iprat 2.5/0.5MG 3 ML AMPUL.NEB 1.5 ML INHALE ×2 (09:51→21:00)
[2022-04-19] MEDS: Loperamide HCl 2 MG CAPSULE PO (10:40)
--- NOTE | 2022-04-19 14:24 | HO.PSYCHPN ---
Subjective Subjective Date of Service: 04/19/22 Reason For Visit: Depression, AH Interim History: Overnight, patient woke up and complained of stabbing chest pain; rapid response called, EKG and troponins negative (see event note for details) Patient says that she is very anxious about her cancer diagnosis and wants to proceed with surgery is 5 soon as possible. She says that the pain is increasing in her jaw, that she feels a pushing and feels that the size Of the tumorhas increased; she says she can not lie down and feels pain throughout the day. Patient Reiterates she will go to surgery as soon as it is available. Patient says that otherwise she is not feeling depressed and has returned to her baseline chronically intermittently, passive SI which she can ignore. Mental Status Exam Mental Status Exam Narrative: Pt is alert and oriented; behavior is cooperative, appropriate; dressed in casual attire with hair pulled back and adequate hygiene, uses a walker; mood is described as anxious affect congruent; eye contact appropriate; Speech is normal rate, volume and prosody and not pressured; no psychomotor agitation/retardation present; thought process is organized and goal directed; Thought content is on dealing with malignancy, tx; otherwise pertinent to relevant topics and without any delusional content, paranoid ideations or grandiosity; No SI (other than intermittent, ephemeral and passive; no HI. AH present but less; Patients insight and judgment are fair and adequate. Diagnostics Vital Signs (24Hr): Vital Signs - 24 hr 04/18/22 19:18 04/18/22 18:00 04/19/22 00:25 Temperature 97.1 F Pulse Rate 92 85 90 Respiratory Rate 16 24 H Blood Pressure 124/78 138/71 Pulse Oximetry 96 Oxygen Delivery Method Room Air 04/19/22 00:00 04/19/22 00:20 04/19/22 06:00 Temperature 97.4 F Pulse Rate 90 80 77 Respiratory Rate 20 18 18 Blood Pressure 138/71 103/55 L 109/59 L Pulse Oximetry 95 92 94 Oxygen Delivery Method Room Air Room Air 04/19/22 09:51 Temperature Pulse Rate 88 Respiratory Rate 18 Blood Pressure Pulse Oximetry Oxygen Delivery Method BMI result Body Mass Index 37.1 Labs Results: 04/19/22 00:24 04/19/22 07:27 Labs: Laboratory Results - last 48 hr 04/19/22 04/19/22 04/19/22 00:24 00:24 00:24 WBC 9.1 RBC 4.02 L Hgb 12.1 Hct 37.4 MCV 93.0 MCH 30.1 MCHC 32.4 RDW 13.2 Plt Count 251 MPV 9.8 Immature Gran % (Auto) 0.3 Neut % (Auto) 56.9 Lymph % (Auto) 33.4 [place] % (Auto) 6.2 Eos % (Auto) 2.4 Baso % (Auto) 0.8 Lymph # (Auto) 3.1 [place] # (Auto) 0.6 Eos # (Auto) 0.2 Baso # (Auto) 0.1 Abs Immat Gran (auto) 0.03 Absolute Neuts (auto) 5.2 Absolute Nucleated RBC 0.000 Nucleated RBC % (auto) 0.0 Sodium 137 Potassium 4.3 D Chloride 102 Carbon Dioxide 27 Anion Gap 12 BUN 21 H D Creatinine 0.80 Estim Creat Clear Calc 101.5 Estimated GFR > 60 Random Glucose 113 Calcium 9.8 D Total Bilirubin Direct Bilirubin AST ALT Alkaline Phosphatase Troponin I High Sens < 3.5 Total Protein Albumin TSH Free T4 Clara 04/19/22 04/19/22 07:27 07:27 WBC RBC Hgb Hct MCV MCH MCHC RDW Plt Count MPV Immature Gran % (Auto) Neut % (Auto) Lymph % (Auto) [place] % (Auto) Eos % (Auto) Baso % (Auto) Lymph # (Auto) [place] # (Auto) Eos # (Auto) Baso # (Auto) Abs Immat Gran (auto) Absolute Neuts (auto) Absolute Nucleated RBC Nucleated RBC % (auto) Sodium 139 Potassium 4.2 Chloride 103 Carbon Dioxide 27 Anion Gap 13 BUN 16 Creatinine 0.75 Estim Creat Clear Calc 108.3 Estimated GFR > 60 Random Glucose Calcium Total Bilirubin 0.3 Direct Bilirubin < 0.2 AST 15 ALT 24 Alkaline Phosphatase 70 D Troponin I High Sens Total Protein 6.6 Albumin 4.3 TSH 4.60 H Free T4 0.91 Clara 0.88 Imaging Radiology Impressions: ITS Impressions Chest X-Ray 04/19/22 00:35 IMPRESSION: No acute findings Medications Medications Current Medications Acetaminophen (Acetaminophen 325 Mg Tablet) 650 mg PO Q6H PRN PRN Reason: Headache/Pain Mild Scale (1-3) Last Admin: 04/15/22 09:24 Dose: 650 mg Al Hydroxide/Mg Hydroxide (Magnesium Hydrox/Alum Hydrox 30 Ml Oral.Susp) 30 ml PO Q6H PRN PRN Reason: Heartburn/Nausea Last Admin: 04/19/22 00:28 Dose: 30 ml Albuterol Sulfate (Albuterol Sulfate 90 Mcg 8 Gm Inhaler) 2 puff INHALE Q4H PRN PRN Reason: shortness of breath or wheezing Last Admin: 04/15/22 10:29 Dose: 2 puff Albuterol/Ipratropium (Albuterol/Iprat 2.5/0.5mg 3 Ml Ampul.Neb) 1.5 ml INHALE BID@0900,1700 [facility] Last Admin: 04/19/22 09:51 Dose: 1.5 ml Benztropine Mesylate (Benztropine Mesylate 1 Mg Tablet) 1 mg PO BID [facility] Last Admin: 04/19/22 08:01 Dose: 1 mg Capsaicin (Capsaicin 0.025% Cream 60 Gm Tube) 1 appl TOPICAL QID PRN; Protocol PRN Reason: leg pain Clonazepam (Clonazepam 0.5 Mg Tablet) 0.5 mg PO BID PRN PRN Reason: Anxiety Clonidine HCl (Clonidine Hcl 0.2 Mg Tablet) 0.2 mg PO BEDTIME [facility]; Protocol Last Admin: 04/18/22 21:58 Dose: 0.2 mg Clonidine HCl (Clonidine Hcl 0.1 Mg Tablet) 0.1 mg PO Q6H PRN; Protocol PRN Reason: Anxiety Last Admin: 04/16/22 18:39 Dose: 0.1 mg Cyanocobalamin (Cyanocobalamin (Vitamin B-12) 100 Mcg Tablet) 100 mcg PO DAILY [facility] Last Admin: 04/19/22 08:01 Dose: 100 mcg Ferrous Sulfate (Ferrous Sulfate 324 Mg Tablet.Dr) 324 mg PO DAILY [facility] Last Admin: 04/19/22 08:01 Dose: 324 mg Fluticasone/Vilanterol (Fluticasone/Vilanterol 200/25 Blst.W.Dev) 1 puff INHALE RDAILY [facility] Last Admin: 04/19/22 08:01 Dose: 1 puff Gabapentin (Gabapentin 400 Mg Capsule) 400 mg PO TID [facility] Last Admin: 04/19/22 08:01 Dose: 400 mg Hydroxyzine HCl (Hydroxyzine Hcl 25 Mg Tablet) 25 mg PO Q6H PRN PRN Reason: Anxiety Last Admin: 04/19/22 09:31 Dose: 25 mg Ibuprofen (Ibuprofen 800 Mg Tablet) 800 mg PO Q8H PRN PRN Reason: Pain, Mild (Pain Scale 1-3) Last Admin: 04/18/22 19:49 Dose: 800 mg Clara Carbonate (Clara Carbonate 300 Mg Capsule) 600 mg PO BID [facility] Last Admin: 04/19/22 08:01 Dose: 600 mg Loperamide HCl (Loperamide Hcl 2 Mg Capsule) 2 mg PO Q6H PRN PRN Reason: Loose Stool Last Admin: 04/19/22 10:40 Dose: 2 mg Magnesium Hydroxide (Milk Of Magnesia 30 Ml Oral.Susp) 30 ml PO DAILY PRN PRN Reason: Constipation Metronidazole (Metronidazole 500 Mg Tablet) 500 mg PO BID [facility] Stop: 04/21/22 14:03 Last Admin: 04/19/22 08:01 Dose: 500 mg Nicotine Polacrilex (Nicotine Polacrilex 2 Mg Gum) 4 mg BUCCAL Q2H PRN PRN Reason: Nicotine Cravings Nitroglycerin (Nitroglycerin 0.4 Mg Tab.Subl) 0.4 mg SUBLINGUAL Q5MX3 PRN PRN Reason: Chest Pain Last Admin: 04/19/22 00:25 Dose: 0.4 mg Olanzapine (Olanzapine 10 Mg Tablet) 10 mg PO BEDTIME [facility] Last Admin: 04/18/22 21:58 Dose: 10 mg Omeprazole (Omeprazole 20 Mg Capsule.Dr) 20 mg PO DAILY@0630 [facility] Last Admin: 04/19/22 06:18 Dose: 20 mg Oxcarbazepine (Oxcarbazepine 150 Mg Tablet) 150 mg PO BID [facility] Last Admin: 04/19/22 08:01 Dose: 150 mg Quetiapine Fumarate (Quetiapine Fumarate 25 Mg Tablet) 25 mg PO Q4H PRN PRN Reason: anxiety Last Admin: 04/17/22 09:25 Dose: 25 mg Ropinirole HCl (Ropinirole Hcl 0.5 Mg Tablet) 0.5 mg PO BEDTIME [facility] Last Admin: 04/18/22 21:58 Dose: 0.5 mg Sertraline HCl (Sertraline Hcl 50 Mg Tablet) 50 mg PO DAILY [facility] Last Admin: 04/19/22 08:01 Dose: 50 mg Tiotropium Ambler (Tiotropium Ambler 18 Mcg Cap.W.Dev) 1 puff INHALE RDAILY [facility] Last Admin: 04/19/22 08:01 Dose: 1 puff Trazodone HCl (Trazodone Hcl 100 Mg Tablet) 200 mg PO BEDTIME [facility] Last Admin: 04/18/22 21:59 Dose: 200 mg Valacyclovir HCl (Valacyclovir Hcl 1,000 Mg Tablet) 1,000 mg PO BID [facility] Last Admin: 04/19/22 08:01 Dose: 1,000 mg Vitamin D (Cholecalciferol (Vitamin D3) 25 Mcg Tablet) 25 mcg PO DAILY [facility] Last Admin: 04/19/22 08:01 Dose: 25 mcg Allergies Allergies Allergy/AdvReac Type Severity Reaction Status Date / Time aspirin [Aspirin] Allergy Severe HIVES,THROAT Verified 10/13/21 04:51 SWELLS bee pollen [BEE STINGS] Allergy Severe ANAPHYLAXIS Verified 10/13/21 04:51 diphenhydramine Allergy Severe hives, Verified 10/13/21 04:51 [From BENADRYL ALLERGY] throat swells Penicillins [PCN] Allergy Severe HIVES Verified 10/13/21 04:51 THROAT SWELLS Sulfa (Sulfonamide Allergy Intermediate HIVES Verified 10/13/21 04:51 Antibiotics) [SULFA (SULFONAMIDE ANTIBIOTICS)] tramadol [TRAMADOL] Allergy Intermediate ITCHING Verified 10/13/21 04:51 latex [LATEX] Allergy Unknown UNKNOWN Verified 10/13/21 04:51 penicillin G Allergy Unknown Unknown Verified 10/13/21 04:51 levofloxacin [From Levaquin] Allergy Hives Verified 10/13/21 04:51 hydroxyzine AdvReac Severe restless Verified 01/27/22 19:57 legs seafood AdvReac Stomach Verified 03/17/22 12:07 Upset bee stings Allergy Unknown Unknown Uncoded 10/13/21 04:51 DairyCare Allergy Unknown Unknown Uncoded 10/13/21 04:51 sulfa drugs Allergy Unknown Unknown Uncoded 10/13/21 04:51 Assessment & Plan Assessment & Plan (1) Bipolar I disorder: Status: Acute Code(s): F31.9 - Bipolar disorder, unspecified (2) Neoplasm of parotid gland: Status: Acute Code(s): D49.0 - Neoplasm of unspecified behavior of digestive system (3) PTSD (post-traumatic stress disorder): Status: Acute Code(s): F43.10 - Post-traumatic stress disorder, unspecified (4) Borderline personality disorder: Status: Acute Code(s): F60.3 - Borderline personality disorder (5) Asthma-COPD overlap syndrome: Status: Acute Code(s): J44.9 - Chronic obstructive pulmonary disease, unspecified (6) Trichomonas infection: Status: Acute Code(s): A59.9 - Trichomoniasis, unspecified (7) FABIOLA (obstructive sleep apnea): Status: Acute Code(s): G47.33 - Obstructive sleep apnea (adult) (pediatric) (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 Patient said she was at [facility] for the past 3 weeks during which time she was diagnosed with a parotid gland malignancy. She was discharged about 3 days ago, felt depressed, stop taking her medications and relapsed into substance abuse. Records from [facility] arrived. 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 Also noted, patient has follow-up appointment with surgical consult for excision 04/17 continued depression with intermittent SI; continued AH. Has had asthma attack past 2 days agrees to schedule DuoNebs 04/18 mood a little better, no SI 04/19 Patient's mood is better and no SI other than her baseline chronic and passive SI which is fleeting and able to be ignored. Patient reports that she is getting very anxious about her malignancy and wants to proceed with surgery as soon as possible. She reports increased jaw pain and feels that the tumor Has increased in side and that she Feel it pushing on her jaw and skin; she says she can not lie down on the side and feels pain throughout the day. Team will see what if possible to expedite patient to surgery PLAN: CV Q 15 minute checks Labs ordered for 04/19 Schedule DuoNebs 1.5 mL b.i.d. since patient has had asthma attacks 2 days in a row Restart home meds Patient informs that multiple women under mother's side have had cancer I spent minutes with the patient and/or on the patient floor today, greater than?50% of which was spent counseling/coordinating care. Patient educated on: diagnosis and medical condition Informed Consent: understands Reason for contiued inpatient stay Substantial Risk for: rapid decompensation
[2022-04-19] MEDS: rOPINIRole HCL 0.5 MG TABLET PO (21:30)
[2022-04-19] MEDS: OLANZapine 10 MG TABLET PO (21:31)
[2022-04-19] MEDS: cloNIDine HCL 0.2 MG TABLET PO (21:32)
[2022-04-19] MEDS: traZODone HCL 100 MG TABLET 200 MG PO (21:35)
[2022-04-19] MEDS: QUEtiapine Fumarate 25 MG TABLET PO (23:52)
[2022-04-20] MEDS: Omeprazole 20 MG CAPSULE.DR PO (05:45)
[2022-04-20 05:54] VITALS: BP 132/58; PULSE 75; RESP 18; TEMP 35.9; O2SAT 95
[2022-04-20 09:08] VITALS: PULSE 95; RESP 20; O2SAT 90
[2022-04-20] MEDS: Albuterol/Iprat 2.5/0.5MG 3 ML AMPUL.NEB 1.5 ML INHALE (09:08)
[2022-04-20] MEDS: Ferrous Sulfate 324 MG TABLET.DR PO (09:14)
[2022-04-20] MEDS: valACYclovir HCL 1,000 MG TABLET 1000 MG PO (09:14)
[2022-04-20] MEDS: Lithium Carbonate 300 MG CAPSULE 600 MG PO (09:14)
[2022-04-20] MEDS: Sertraline HCL 50 MG TABLET PO (09:14)
[2022-04-20] MEDS: Cholecalciferol (Vitamin D3) 25 MCG TABLET PO (09:14)
[2022-04-20] MEDS: OXcarbazepine 150 MG TABLET PO (09:14)
[2022-04-20] MEDS: Benztropine Mesylate 1 MG TABLET PO (09:14)
[2022-04-20] MEDS: metroNIDAZOLE 500 MG TABLET PO (09:14)
[2022-04-20] MEDS: Cyanocobalamin (Vitamin B-12) 100 MCG TABLET PO (09:15)
[2022-04-20] MEDS: Gabapentin 400 MG CAPSULE PO ×2 (09:15→14:39)
[2022-04-20] MEDS: Fluticasone/Vilanterol 200/25 BLST.W.DEV 1 PUFF INHALE (09:17)
[2022-04-20] MEDS: Ibuprofen 800 MG TABLET PO (11:03)
[2022-04-20 13:21] VITALS: BP 115/55; PULSE 82
--- NOTE | 2022-04-20 15:05 | P.PNPSI_ITS ---
Subjective Subjective Date of Service: 04/20/22 Reason For Visit: Depression, AH Interim History: Patient became highly irritable with a peer who has been intrusive with number of patients on the unit, and demanded discharge. [employer] Supervisor and social media manager who know the patient well, tried to dissuade patient from leaving the unit, talking about efforts made to get her to surgery. Patient however would not change her mind. She said she wants surgery and she does not want to wait for her primary team on the unit to organize it, but is going to go the appointment herself. She said that she is getting so frustrated and angry at this peer that she is getting close to hurting the peer and she does not want to do that, that that is her old self and she does not want to act like that again. She said she is also getting angry enough to want head her own head on the wall and just wants to discharge before she loses control. Patient was initially very angry, however she was able to calm down and process this event and shares that a number of the things that peer said to her triggered her long history of severe trauma. Patient says she is not suicidal or homicidal. Both writer producer and social media manager discussed how this is the pattern patient follows at nearly every admission to the unit, that she stabilizes, gets frustrated with someone else in the unit and demands discharge. Patient is well aware of this however would not change her mind. She is going to stay at a close friend's house where she is able to stay for several days which is confirmed by social media manager. [employer] Supervisor strongly advised patient that it is against medical advice to discharge and to remain on the unit so that team can continue to pursue getting her to surgery, which is her goal, again citing her high risk for relapse and not following through with surgery; social media manager shared the same sentiment. Patient remained adamant; she also remained calm, logical and linear and was able to describe her plans in detail and reassured that she will call today and pursue surgery. Both social media manager and writer producer agree that despite patient's risk for relapse, risk for future mood dysregulation and history of poor follow-through with outpatient providers, that patient is not in imminent risk for harm to self or others and is able to discharge if she wants to. Nursing press shop supervisor who also has known patient for y ears met with patient and agrees the patient is okay for discharge and not in imminent risk for harm to self or others. As mentioned, patient has a long history of discharging back to homelessness, despite numerous times treatment team has worked to find alternative housing for patient. Patient also has a long history of being able to get her needs meet in the community, even while homeless; she has an equally long history of reaching out for help when starting to feel unsafe or dysregulated to the point where she cannot stabilize on her own without some additional support and very frequently self presents to the emergency room. These issues are chronic and will not change by keeping patient on the unit longer, especially against her will. Also, it is writer producer's strong opinion and that of the treatment team that keeping patient on the unit against her will would be counter therapeutic and significantly increase her risk to dysregulate. Mental Status Exam Mental Status Exam Narrative: Pt is alert and oriented; behavior is irritated and demanding at first, but calms and becomes cooperative, appropriate; dressed in casual attire with hair pulled back and adequate hygiene, uses a walker; mood is described as angry affect congruent at first but becomes calm; eye contact appropriate; Speech is normal rate, volume and prosody and not pressured; mild psychomotor agitation present which resolves; thought process is organized and goal directed; Thought content is on anger towards intrusive peer on unit and wanting to discharge; also on dealing with malignancy; otherwise pertinent to relevant topics and without any delusional content, paranoid ideations or grandiosity; No SI; no HI. Patients insight and judgment are impaired but adequate and at baseline. . Diagnostics Vital Signs (24Hr): Vital Signs - 24 hr 04/19/22 22:28 04/19/22 21:15 04/20/22 05:54 Temperature 97.7 F 96.7 F L Pulse Rate 88 84 75 Respiratory Rate 18 18 Blood Pressure 123/63 132/58 L Pulse Oximetry 95 Oxygen Delivery Method Room Air 04/20/22 09:08 04/20/22 13:21 Temperature Pulse Rate 95 82 Respiratory Rate 20 Blood Pressure 115/55 L Pulse Oximetry Oxygen Delivery Method BMI result Body Mass Index 37.1 Labs Results: 04/19/22 00:24 04/19/22 07:27 Labs: Laboratory Results - last 48 hr 04/19/22 04/19/22 04/19/22 00:24 00:24 00:24 WBC 9.1 RBC 4.02 L Hgb 12.1 Hct 37.4 MCV 93.0 MCH 30.1 MCHC 32.4 RDW 13.2 Plt Count 251 MPV 9.8 Immature Gran % (Auto) 0.3 Neut % (Auto) 56.9 Lymph % (Auto) 33.4 [place] % (Auto) 6.2 Eos % (Auto) 2.4 Baso % (Auto) 0.8 Lymph # (Auto) 3.1 [place] # (Auto) 0.6 Eos # (Auto) 0.2 Baso # (Auto) 0.1 Abs Immat Gran (auto) 0.03 Absolute Neuts (auto) 5.2 Absolute Nucleated RBC 0.000 Nucleated RBC % (auto) 0.0 Sodium 137 Potassium 4.3 D Chloride 102 Carbon Dioxide 27 Anion Gap 12 BUN 21 H D Creatinine 0.80 Estim Creat Clear Calc 101.5 Estimated GFR > 60 Random Glucose 113 Calcium 9.8 D Total Bilirubin Direct Bilirubin AST ALT Alkaline Phosphatase Troponin I High Sens < 3.5 Total Protein Albumin TSH Free T4 [place] 04/19/22 04/19/22 07:27 07:27 WBC RBC Hgb Hct MCV MCH MCHC RDW Plt Count MPV Immature Gran % (Auto) Neut % (Auto) Lymph % (Auto) [place] % (Auto) Eos % (Auto) Baso % (Auto) Lymph # (Auto) [place] # (Auto) Eos # (Auto) Baso # (Auto) Abs Immat Gran (auto) Absolute Neuts (auto) Absolute Nucleated RBC Nucleated RBC % (auto) Sodium 139 Potassium 4.2 Chloride 103 Carbon Dioxide 27 Anion Gap 13 BUN 16 Creatinine 0.75 Estim Creat Clear Calc 108.3 Estimated GFR > 60 Random Glucose Calcium Total Bilirubin 0.3 Direct Bilirubin < 0.2 AST 15 ALT 24 Alkaline Phosphatase 70 D Troponin I High Sens Total Protein 6.6 Albumin 4.3 TSH 4.60 H Free T4 0.91 [place] 0.88 Imaging Radiology Impressions: ITS Impressions Chest X-Ray 04/19/22 00:35 IMPRESSION: No acute findings Medications Medications Current Medications Acetaminophen (Acetaminophen 325 Mg Tablet) 650 mg PO Q6H PRN PRN Reason: Headache/Pain Mild Scale (1-3) Last Admin: 04/15/22 09:24 Dose: 650 mg Al Hydroxide/Mg Hydroxide (Magnesium Hydrox/Alum Hydrox 30 Ml Oral.Susp) 30 ml PO Q6H PRN PRN Reason: Heartburn/Nausea Last Admin: 04/19/22 00:28 Dose: 30 ml Albuterol Sulfate (Albuterol Sulfate 90 Mcg 8 Gm Inhaler) 2 puff INHALE Q4H PRN PRN Reason: shortness of breath or wheezing Last Admin: 04/15/22 10:29 Dose: 2 puff Albuterol/Ipratropium (Albuterol/Iprat 2.5/0.5mg 3 Ml Ampul.Neb) 1.5 ml INHALE BID@0900,1700 [facility] Last Admin: 04/20/22 09:08 Dose: 1.5 ml Benztropine Mesylate (Benztropine Mesylate 1 Mg Tablet) 1 mg PO BID [facility] Last Admin: 04/20/22 09:14 Dose: 1 mg Capsaicin (Capsaicin 0.025% Cream 60 Gm Tube) 1 appl TOPICAL QID PRN; Protocol PRN Reason: leg pain Clonazepam (Clonazepam 0.5 Mg Tablet) 0.5 mg PO BID PRN PRN Reason: Anxiety Clonidine HCl (Clonidine Hcl 0.2 Mg Tablet) 0.2 mg PO BEDTIME [facility]; Protocol Last Admin: 04/19/22 21:32 Dose: 0.2 mg Clonidine HCl (Clonidine Hcl 0.1 Mg Tablet) 0.1 mg PO Q6H PRN; Protocol PRN Reason: Anxiety Last Admin: 04/16/22 18:39 Dose: 0.1 mg Cyanocobalamin (Cyanocobalamin (Vitamin B-12) 100 Mcg Tablet) 100 mcg PO DAILY [facility] Last Admin: 04/20/22 09:15 Dose: 100 mcg Ferrous Sulfate (Ferrous Sulfate 324 Mg Tablet.Dr) 324 mg PO DAILY [facility] Last Admin: 04/20/22 09:14 Dose: 324 mg Fluticasone/Vilanterol (Fluticasone/Vilanterol 200/25 Blst.W.Dev) 1 puff INHALE RDAILY [facility] Last Admin: 04/20/22 09:17 Dose: 1 puff Gabapentin (Gabapentin 400 Mg Capsule) 400 mg PO TID [facility] Last Admin: 04/20/22 14:39 Dose: 400 mg Hydroxyzine HCl (Hydroxyzine Hcl 25 Mg Tablet) 25 mg PO Q6H PRN PRN Reason: Anxiety Last Admin: 04/19/22 23:52 Dose: 25 mg Ibuprofen (Ibuprofen 800 Mg Tablet) 800 mg PO Q8H PRN PRN Reason: Pain, Mild (Pain Scale 1-3) Last Admin: 04/20/22 11:03 Dose: 800 mg [place] Carbonate ([place] Carbonate 300 Mg Capsule) 600 mg PO BID [facility] Last Admin: 04/20/22 09:14 Dose: 600 mg Loperamide HCl (Loperamide Hcl 2 Mg Capsule) 2 mg PO Q6H PRN PRN Reason: Loose Stool Last Admin: 04/19/22 10:40 Dose: 2 mg Magnesium Hydroxide (Milk Of Magnesia 30 Ml Oral.Susp) 30 ml PO DAILY PRN PRN Reason: Constipation Metronidazole (Metronidazole 500 Mg Tablet) 500 mg PO BID [facility] Stop: 04/21/22 14:03 Last Admin: 04/20/22 09:14 Dose: 500 mg Nicotine Polacrilex (Nicotine Polacrilex 2 Mg Gum) 4 mg BUCCAL Q2H PRN PRN Reason: Nicotine Cravings Nitroglycerin (Nitroglycerin 0.4 Mg Tab.Subl) 0.4 mg SUBLINGUAL Q5MX3 PRN PRN Reason: Chest Pain Last Admin: 04/19/22 00:25 Dose: 0.4 mg Olanzapine (Olanzapine 10 Mg Tablet) 10 mg PO BEDTIME [facility] Last Admin: 04/19/22 21:31 Dose: 10 mg Omeprazole (Omeprazole 20 Mg Capsule.Dr) 20 mg PO DAILY@0630 [facility] Last Admin: 04/20/22 05:45 Dose: 20 mg Oxcarbazepine (Oxcarbazepine 150 Mg Tablet) 150 mg PO BID [facility] Last Admin: 04/20/22 09:14 Dose: 150 mg Quetiapine Fumarate (Quetiapine Fumarate 25 Mg Tablet) 25 mg PO Q4H PRN PRN Reason: anxiety Last Admin: 04/19/22 23:52 Dose: 25 mg Ropinirole HCl (Ropinirole Hcl 0.5 Mg Tablet) 0.5 mg PO BEDTIME [facility] Last Admin: 04/19/22 21:30 Dose: 0.5 mg Sertraline HCl (Sertraline Hcl 50 Mg Tablet) 50 mg PO DAILY [facility] Last Admin: 04/20/22 09:14 Dose: 50 mg Tiotropium [place] (Tiotropium [place] 18 Mcg Cap.W.Dev) 1 puff INHALE RDAILY [facility] Last Admin: 04/20/22 12:59 Dose: 1 puff Trazodone HCl (Trazodone Hcl 100 Mg Tablet) 200 mg PO BEDTIME [facility] Last Admin: 04/19/22 21:35 Dose: 200 mg Valacyclovir HCl (Valacyclovir Hcl 1,000 Mg Tablet) 1,000 mg PO BID [facility] Last Admin: 04/20/22 09:14 Dose: 1,000 mg Vitamin D (Cholecalciferol (Vitamin D3) 25 Mcg Tablet) 25 mcg PO DAILY [facility] Last Admin: 04/20/22 09:14 Dose: 25 mcg Allergies Allergies Allergy/AdvReac Type Severity Reaction Status Date / Time aspirin [Aspirin] Allergy Severe HIVES,THROAT Verified 10/13/21 04:51 SWELLS bee pollen [BEE STINGS] Allergy Severe ANAPHYLAXIS Verified 10/13/21 04:51 diphenhydramine Allergy Severe hives, Verified 10/13/21 04:51 [From BENADRYL ALLERGY] throat swells Penicillins [PCN] Allergy Severe HIVES Verified 10/13/21 04:51 THROAT SWELLS Sulfa (Sulfonamide Allergy Intermediate HIVES Verified 10/13/21 04:51 Antibiotics) [SULFA (SULFONAMIDE ANTIBIOTICS)] tramadol [TRAMADOL] Allergy Intermediate ITCHING Verified 10/13/21 04:51 latex [LATEX] Allergy Unknown UNKNOWN Verified 10/13/21 04:51 penicillin G Allergy Unknown Unknown Verified 10/13/21 04:51 levofloxacin [From Levaquin] Allergy Hives Verified 10/13/21 04:51 hydroxyzine AdvReac Severe restless Verified 01/27/22 19:57 legs seafood AdvReac Stomach Verified 03/17/22 12:07 Upset bee stings Allergy Unknown Unknown Uncoded 10/13/21 04:51 DairyCare Allergy Unknown Unknown Uncoded 10/13/21 04:51 sulfa drugs Allergy Unknown Unknown Uncoded 10/13/21 04:51 Assessment & Plan Assessment & Plan (1) Bipolar I disorder: Status: Acute Code(s): F31.9 - Bipolar disorder, unspecified (2) Neoplasm of parotid gland: Status: Acute Code(s): D49.0 - Neoplasm of unspecified behavior of digestive system (3) PTSD (post-traumatic stress disorder): Status: Acute Code(s): F43.10 - Post-traumatic stress disorder, unspecified (4) Borderline personality disorder: Status: Acute Code(s): F60.3 - Borderline personality disorder (5) Asthma-COPD overlap syndrome: Status: Acute Code(s): J44.9 - Chronic obstructive pulmonary disease, unspecified (6) Trichomonas infection: Status: Acute Code(s): A59.9 - Trichomoniasis, unspecified (7) FABIOLA (obstructive sleep apnea): Status: Acute Code(s): G47.33 - Obstructive sleep apnea (adult) (pediatric) (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 Patient said she was at [facility] for the past 3 weeks during which time she was diagnosed with a parotid gland malignancy. She was discharged about 3 days ago, felt depressed, stop taking her medications and relapsed into substance abuse. Records from [facility] arrived. 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 Also noted, patient has follow-up appointment with surgical consult for excision 04/17 continued depression with intermittent SI; continued AH. Has had asthma attack past 2 days [facility] mood a little better, no SI 04/19 Patient's mood is better and no SI other than her baseline chronic and passive SI which is fleeting and able to be ignored. Patient reports that she is getting very anxious about her malignancy and wants to proceed with surgery as soon as possible. She reports increased jaw pain and feels that the tumor Has increased in side and that she Feel it pushing on her jaw and skin; she says she can not lie down on the side and feels pain throughout the day. Team will see what if possible to expedite patient to surgery 04/20 Patient became highly irritable with a peer who has been intrusive with number of patients on the unit, and demanded discharge. [employer] Supervisor and social media manager who know the patient well, tried to dissuade patient from leaving the unit, talking about efforts made to get her to surgery. Patient however would not change her mind. She said she wants surgery and she does not want to wait for her primary team on the unit to organize it, but is going to go the appointment herself. She said that she is getting so frustrated and angry at this peer that she is getting close to hurting the peer and she does not want to do that, that that is her old self and she does not want to act like that again. She said she is also getting angry enough to want head her own head on the wall and just wants to discharge before she loses control. Patient was initially very angry, however she was able to calm down and process this event and shares that a number of the things that peer said to her triggered her long history of severe trauma. Patient says she is not suicidal or homicidal. Both writer producer and social media manager discussed how this is the pattern patient follows at nearly every admission to the unit, where she stabilizes, gets frustrated with someone else on the unit and demands discharge. Patient is well aware of this however would not change her mind. She is going to stay at a close friend's house where she is able to stay for several days which is confirmed by social media manager. [employer] Supervisor strongly advised patient that it is against medical advice to discharge and to remain on the unit so that team can continue to pursue getting her to surgery, which is her goal, again citing her high risk for relapse and not following through with surgery; social media manager shared the same sentiment. Patient remained adamant; she also remained calm, logical and linear and was able to describe her plans in detail and reassured that she will call today and pursue surgery. Both social media manager and writer producer agree that despite patient's risk for relapse, risk for future mood dysregulation and history of poor follow-through with outpatient providers, that patient is not in imminent risk for harm to self or others and is able to discharge if she wants to. Nursing press shop supervisor who also has known patient for years met with patient and agrees the patient is okay for discharge and not in imminent risk for harm to self or others. As mentioned, patient has a long history of discharging back to homelessness, despite numerous times treatment team has worked to find alternative housing for patient. Patient also has a long history of being able to get her needs meet in the community, even while homeless; she has an equally long history of reaching out for help when starting to feel unsafe or dysregulated to the point where she cannot stabilize on her own without some additional support and very frequently self presents to the emergency room. These issues are chronic and will not change by keeping patient on the unit longer, especially against her will. Rather, it is writer producer's strong opinion and that of the treatment team that keeping patient on the unit against her will would be counter therapeutic and significantly increase her risk to dysregulate PLAN: CV Q 15 minute checks Labs ordered for 04/19 Schedule DuoNebs 1.5 mL b.i.d. since patient has had asthma attacks 2 days in a row Restart home meds Patient informs that multiple women under mother's side have had cancer I spent minutes with the patient and/or on the patient floor today, greater than?50% of which was spent counseling/coordinating care. Patient educated on: diagnosis, substance abuse and medical condition Informed Consent: understands Reason for contiued inpatient stay Substantial Risk for: stable for discharge
--- NOTE | 2022-04-20 16:13 | PM.PSYDC ---
DS: Providers Provider Date of Service: 04/20/22 Date of admission: 04/14/22 14:25 Date of discharge: 04/20/22 Primary care physician: Cori Hooker MD Attending physician on admission: Lamont Damon Attending physician on discharge: Lamont Damon DS: Diagnosis Discharge Diagnosis (1) Bipolar I disorder: Status: Acute (2) Neoplasm of parotid gland: Status: Acute (3) PTSD (post-traumatic stress disorder): Status: Acute (4) Borderline personality disorder: Status: Acute (5) Asthma-COPD overlap syndrome: Status: Acute (6) Trichomonas infection: Status: Acute (7) FABIOLA (obstructive sleep apnea): Status: Acute (8) Pseudoseizures: Status: Acute (9) Parotid mass: Status: Deleted DS: Medications Discharge Medications Home Medications: Previous Rx's Medication Instructions Recorded albuterol sulfate 90 mcg/actuation 2 puff inhalation Q4-6H PRN 04/20/22 aerosol inhaler shortness of breath or wheezing 30 days #1 inhaler benztropine 1 mg tablet 1 mg PO BID 30 days #60 tabs 04/20/22 capsaicin 0.025 % topical cream 1 appl topical QID PRN leg pain 30 04/20/22 days #100 grams cholecalciferol (vitamin D3) 25 25 mcg PO DAILY 30 days #30 tabs 04/20/22 mcg (1,000 unit) tablet clonidine HCl 0.2 mg tablet 0.2 mg PO BEDTIME 30 days #30 tabs 04/20/22 cyanocobalamin (vitamin B-12) 100 100 mcg PO DAILY 30 days #30 tabs 04/20/22 mcg tablet (Vitamin B-12) ferrous sulfate 324 mg (65 mg 324 mg PO DAILY 30 days #30 tabs 04/20/22 iron) tablet,delayed release fluticasone furoate 200 1 ea inhalation RDAILY 30 days #1 04/20/22 mcg-vilanterol 25 mcg/dose ea inhalation powder (Breo Ellipta) gabapentin 400 mg capsule 400 mg PO TID 30 days #90 caps 04/20/22 lithium carbonate 600 mg capsule 600 mg PO BID 30 days #60 caps 04/20/22 metronidazole 500 mg tablet 500 mg PO BID 1 day #2 tabs 04/20/22 nitroglycerin 0.4 mg sublingual 0.4 mg sublingual [id number] PRN Chest 04/20/22 tablet (Nitrostat) Pain 30 days #10 tabs olanzapine 10 mg tablet 10 mg PO BEDTIME 30 days #30 tabs 04/20/22 omeprazole 20 mg capsule,delayed 20 mg PO DAILY@0630 30 days #30 04/20/22 release caps oxcarbazepine 150 mg tablet 150 mg PO BID 30 days #60 tabs 04/20/22 ropinirole 0.5 mg tablet 0.5 mg PO BEDTIME 30 days #30 tabs 04/20/22 sertraline 50 mg tablet 50 mg PO DAILY 30 days #30 tabs 04/20/22 tiotropium bromide 18 mcg capsule 18 mcg inhalation RDAILY 30 days 04/20/22 with inhalation device (Spiriva #1 inhaler with HandiHaler) trazodone 100 mg tablet 200 mg PO BEDTIME 30 days #60 tabs 04/20/22 valacyclovir 1 gram tablet 1,000 mg PO BID 30 days #60 tabs 04/20/22 Mental Status Exam Mental Status Exam Narrative: Pt is alert and oriented; behavior is irritated and demanding at first, but calms and becomes cooperative, appropriate; dressed in casual attire with hair pulled back and adequate hygiene, uses a walker; mood is described as angry affect congruent at first but becomes calm; eye contact appropriate; Speech is normal rate, volume and prosody and not pressured; mild psychomotor agitation present which resolves; thought process is organized and goal directed; Thought content is on anger towards intrusive peer on unit and wanting to discharge; also on dealing with malignancy; otherwise pertinent to relevant topics and without any delusional content, paranoid ideations or grandiosity; No SI; no HI. Patients insight and judgment are impaired but adequate and at baseline. . Data Data Completed and Pending Completed studies during hospitalization [Text1]: 04/13/22 04/13/22 04/13/22 22:19 22:19 22:19 WBC RBC Hgb Hct MCV MCH MCHC RDW Plt Count MPV Immature Gran % (Auto) Neut % (Auto) Lymph % (Auto) [place] % (Auto) Eos % (Auto) Baso % (Auto) Lymph # (Auto) [place] # (Auto) Eos # (Auto) Baso # (Auto) Abs Immat Gran (auto) Absolute Neuts (auto) Absolute Nucleated RBC Nucleated RBC % (auto) Sodium Potassium Chloride Carbon Dioxide Anion Gap BUN Creatinine Estim Creat Clear Calc Estimated GFR Random Glucose Calcium Magnesium Total Bilirubin Direct Bilirubin AST ALT Alkaline Phosphatase Troponin I High Sens Total Protein Albumin TSH Free T4 Urine Color YELLOW Urine Appearance CLEAR Urine pH 7.0 Ur Specific [place] 1.010 Urine Protein 1+ H Urine Glucose (UA) NEG Urine Ketones NEG Urine Blood NEG Urine Nitrite NEG Ur Leukocyte Esterase 2+ H Urine RBC 0 Urine WBC 15-29 H Ur Squamous Epith Cells 2+ Urine Bacteria 2+ Urine Trichomonas NOTED Salicylates Urine Opiates Screen Not Detected Urine Fentanyl Screen Not Detected Acetaminophen Ur Barbiturates Screen Not Detected Ur Phencyclidine Scrn Not Detected Ur Amphetamines Screen Not Detected U Benzodiazepines Scrn Not Detected Lohman Urine Cocaine Screen POSITIVE H U Marijuana (THC) Screen Not Detected Ethyl Alcohol COVID-19 (ENDY) Negative COVID-19 Clin Com See Note 04/14/22 04/14/22 04/14/22 00:22 00:22 00:22 WBC 7.4 RBC 3.97 L Hgb 12.0 Hct 37.3 MCV 94.0 MCH 30.2 MCHC 32.2 RDW 13.2 Plt Count 257 MPV 9.7 Immature Gran % (Auto) 0.3 Neut % (Auto) 59.1 Lymph % (Auto) 31.2 [place] % (Auto) 7.3 Eos % (Auto) 1.2 Baso % (Auto) 0.9 Lymph # (Auto) 2.3 [place] # (Auto) 0.5 Eos # (Auto) 0.1 Baso # (Auto) 0.1 Abs Immat Gran (auto) 0.02 Absolute Neuts (auto) 4.4 Absolute Nucleated RBC 0.000 Nucleated RBC % (auto) 0.0 Sodium 140 Potassium 3.5 Chloride 105 Carbon Dioxide 29 Anion Gap 10 L BUN 10 Creatinine 0.72 Estim Creat Clear Calc 114.1 Estimated GFR > 60 Random Glucose 128 H Calcium 9.2 D Magnesium 2.0 Total Bilirubin 0.4 Direct Bilirubin AST 23 ALT 51 H Alkaline Phosphatase 99 D Troponin I High Sens Total Protein 6.1 L Albumin 3.9 TSH Free T4 Urine Color Urine Appearance Urine pH Ur Specific [place] Urine Protein Urine Glucose (UA) Urine Ketones Urine Blood Urine Nitrite Ur Leukocyte Esterase Urine RBC Urine WBC Ur Squamous Epith Cells Urine Bacteria Urine Trichomonas Salicylates < 5.0 L Urine Opiates Screen Urine Fentanyl Screen Acetaminophen < 1 Ur Barbiturates Screen Ur Phencyclidine Scrn Ur Amphetamines Screen U Benzodiazepines Scrn Lohman < 0.44 L Urine Cocaine Screen U Marijuana (THC) Screen Ethyl Alcohol COVID-19 (ENDY) COVID-19 LikeAndy 04/14/22 04/19/22 04/19/22 00:22 00:24 00:24 WBC 9.1 RBC 4.02 L Hgb 12.1 Hct 37.4 MCV 93.0 MCH 30.1 MCHC 32.4 RDW 13.2 Plt Count 251 MPV 9.8 Immature Gran % (Auto) 0.3 Neut % (Auto) 56.9 Lymph % (Auto) 33.4 [place] % (Auto) 6.2 Eos % (Auto) 2.4 Baso % (Auto) 0.8 Lymph # (Auto) 3.1 [place] # (Auto) 0.6 Eos # (Auto) 0.2 Baso # (Auto) 0.1 Abs Immat Gran (auto) 0.03 Absolute Neuts (auto) 5.2 Absolute Nucleated RBC 0.000 Nucleated RBC % (auto) 0.0 Sodium 137 Potassium 4.3 D Chloride 102 Carbon Dioxide 27 Anion Gap 12 BUN 21 H D Creatinine 0.80 Estim Creat Clear Calc 101.5 Estimated GFR > 60 Random Glucose 113 Calcium 9.8 D Magnesium Total Bilirubin Direct Bilirubin AST ALT Alkaline Phosphatase Troponin I High Sens Total Protein Albumin TSH Free T4 Urine Color Urine Appearance Urine pH Ur Specific [place] Urine Protein Urine Glucose (UA) Urine Ketones Urine Blood Urine Nitrite Ur Leukocyte Esterase Urine RBC Urine WBC Ur Squamous Epith Cells Urine Bacteria Urine Trichomonas Salicylates Urine Opiates Screen Urine Fentanyl Screen Acetaminophen Ur Barbiturates Screen Ur Phencyclidine Scrn Ur Amphetamines Screen U Benzodiazepines Scrn Lohman Urine Cocaine Screen U Marijuana (THC) Screen Ethyl Alcohol < 10 COVID-19 (ENDY) COVID-19 LikeAndy 04/19/22 04/19/22 04/19/22 00:24 07:27 07:27 WBC RBC Hgb Hct MCV MCH MCHC RDW Plt Count MPV Immature Gran % (Auto) Neut % (Auto) Lymph % (Auto) [place] % (Auto) Eos % (Auto) Baso % (Auto) Lymph # (Auto) [place] # (Auto) Eos # (Auto) Baso # (Auto) Abs Immat Gran (auto) Absolute Neuts (auto) Absolute Nucleated RBC Nucleated RBC % (auto) Sodium 139 Potassium 4.2 Chloride 103 Carbon Dioxide 27 Anion Gap 13 BUN 16 Creatinine 0.75 Estim Creat Clear Calc 108.3 Estimated GFR > 60 Random Glucose Calcium Magnesium Total Bilirubin 0.3 Direct Bilirubin < 0.2 AST 15 ALT 24 Alkaline Phosphatase 70 D Troponin I High Sens < 3.5 Total Protein 6.6 Albumin 4.3 TSH 4.60 H Free T4 0.91 Urine Color Urine Appearance Urine pH Ur Specific [place] Urine Protein Urine Glucose (UA) Urine Ketones Urine Blood Urine Nitrite Ur Leukocyte Esterase Urine RBC Urine WBC Ur Squamous Epith Cells Urine Bacteria Urine Trichomonas Salicylates Urine Opiates Screen Urine Fentanyl Screen Acetaminophen Ur Barbiturates Screen Ur Phencyclidine Scrn Ur Amphetamines Screen U Benzodiazepines Scrn Lohman 0.88 Urine Cocaine Screen U Marijuana (THC) Screen Ethyl Alcohol COVID-19 (ENDY) COVID-19 Clin Com 04/13/22 22:38 Urine clean catch - Urine barker top Urine Culture - Final Imaging Diagnostic Imaging Impressions Chest X-Ray 04/19/22 00:35 IMPRESSION: No acute findings DS: Summary Hospital Course Hospital Course: 52 yo female, with hx of bipolar disorder, numerous admissions, PTSD, Cocaine addiction, COPD, FABIOLA on CPAP and 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 Patient said she was at [facility] for the past 3 weeks during which time she was diagnosed with a parotid gland malignancy. She was discharged about 3 days ago, felt depressed, stop taking her medications and relapsed into substance abuse. Records from [facility] arrived. 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 Also noted, patient has follow-up appointment with surgical consult for excision 04/17 continued depression with intermittent SI; continued AH. Has had asthma attack past 2 days agrees to schedule DuoNebs 04/18 mood a little better, no SI 04/19 Patient's mood is better and no SI other than her baseline chronic and passive SI which is fleeting and able to be ignored. Patient reports that she is getting very anxious about her malignancy and wants to proceed with surgery as soon as possible. She reports increased jaw pain and feels that the tumor Has increased in side and that she Feel it pushing on her jaw and skin; she says she can not lie down on the side and feels pain throughout the day. Team will see what if possible to expedite patient to surgery 04/20 Patient became highly irritable with a peer who has been intrusive with number of patients on the unit, and demanded discharge. Automatic Packer Operator and perinatal social worker who know the patient well, tried to dissuade patient from leaving the unit, talking about efforts made to get her to surgery. Patient however would not change her mind. She said she wants surgery and she does not want to wait for her primary team on the unit to organize it, but is going to go the appointment herself. She said that she is getting so frustrated and angry at this peer that she is getting close to hurting the peer and she does not want to do that, that that is her old self and she does not want to act like that again. She said she is also getting angry enough to want head her own head on the wall and just wants to discharge before she loses control. Patient was initially very angry, however she was able to calm down and process this event and shares that a number of the things that peer said to her triggered her long history of severe trauma. Patient says she is not suicidal or homicidal. Both insurance underwriter sales and perinatal social worker discussed how this is the pattern patient follows at nearly every admission to the unit, where she stabilizes, gets frustrated with someone else on the unit and demands discharge. Patient is well aware of this however would not change her mind. She is going to stay at a close friend's house where she is able to stay for several days which is confirmed by perinatal social worker. Automatic Packer Operator strongly advised patient that it is against medical advice to discharge and to remain on the unit so that team can continue to pursue getting her to surgery, which is her goal, again citing her high risk for relapse and not following through with surgery; perinatal social worker shared the same sentiment. Patient remained adamant; she also remained calm, logical and linear and was able to describe her plans in detail and reassured that she will call today and pursue surgery. Both perinatal social worker and insurance underwriter sales agree that despite patient's risk for relapse, risk for future mood dysregulation and history of poor follow-through with outpatient providers, that patient is not in imminent risk for harm to self or others and is able to discharge if she wants to. Nursing liquefaction supervisor who also has known patient for years met with patient and agrees the patient is okay for discharge and not in imminent risk for harm to self or others. As mentioned, patient has a long history of discharging back to homelessness, despite numerous times treatment team has worked to find alternative housing for patient. Patient also has a long history of being able to get her needs meet in the community, even while homeless; she has an equally long history of reaching out for help when starting to feel unsafe or dysregulated to the point where she cannot stabilize on her own without some additional support and very frequently self presents to the emergency room. These issues are chronic and will not change by keeping patient on the unit longer, especially against her will. Rather, it is insurance underwriter sales's strong opinion and that of the treatment team that keeping patient on the unit against her will would be counter therapeutic and significantly increase her risk to dysregulate Time spent discussing smoking cessation with patient: 3 to 10 minutes Status at Discharge Functional status at discharge: uses cane/walker Overall status at discharge: patient is back to baseline Time Spent with Patient Time attestation: Total time spent providing and/or coordinating discharge services: Time spent: Greater than 30 minutes Discharge Plan Discharge Patient Disposition: Left Against Medical Advice Discharge Diagnosis: Bipolar disorder, type 1, recurrent, severe in remission Referrals: [facility] [Other] - 1 Week (*Call to follow up on scheduling appointment for consult to remove mass*) Cori Hooker MD [Primary Care Provider] - 1 Week Discharge Medications: New metronidazole 500 mg Tablet 500 mg PO BID 1 Days Qty: 2 0RF nitroglycerin [Nitrostat] 0.4 mg Tablet, Sublingual 0.4 mg sublingual Q5MX3 PRN (Reason: Chest Pain) 30 Days Qty: 10 0RF Continued oxcarbazepine 150 mg Tablet 150 mg PO BID 30 Days Qty: 60 0RF cyanocobalamin (vitamin B-12) [Vitamin B-12] 100 mcg Tablet 100 mcg PO DAILY 30 Days Qty: 30 0RF valacyclovir 1 gram Tablet 1,000 mg PO BID 30 Days Qty: 60 0RF gabapentin 400 mg Capsule 400 mg PO TID 30 Days Qty: 90 0RF olanzapine 10 mg Tablet 10 mg PO BEDTIME 30 Days Qty: 30 0RF clonidine HCl 0.2 mg Tablet 0.2 mg PO BEDTIME 30 Days Qty: 30 0RF Protocol: Hold for SBP< HOLD for SBP < : 90 trazodone 100 mg Tablet 200 mg PO BEDTIME 30 Days Qty: 60 0RF lithium carbonate 600 mg capsule 600 mg PO BID 30 Days Qty: 60 0RF ropinirole 0.5 mg Tablet 0.5 mg PO BEDTIME 30 Days Qty: 30 0RF benztropine 1 mg Tablet 1 mg PO BID 30 Days Qty: 60 0RF omeprazole 20 mg Capsule,Delayed Release(Dr/Ec) 20 mg PO DAILY@0630 30 Days Qty: 30 0RF capsaicin 0.025 % Cream 1 appl topical QID PRN (Reason: leg pain) 30 Days Qty: 100 0RF Protocol: Apply to: Apply to: legs B/L albuterol sulfate 90 mcg/actuation HFA aerosol inhaler 2 puff inhalation Q4-6H PRN (Reason: shortness of breath or wheezing) 30 Days Qty: 1 0RF sertraline 50 mg Tablet 50 mg PO DAILY 30 Days Qty: 30 0RF cholecalciferol (vitamin D3) 25 mcg (1,000 unit) Tablet 25 mcg PO DAILY 30 Days Qty: 30 0RF ferrous sulfate 324 mg (65 mg iron) Tablet,Delayed Release (Dr/Ec) 324 mg PO DAILY 30 Days Qty: 30 0RF Changed Spiriva with HandiHaler 18 mcg Capsule, W/Inhalation Device 18 mcg inhalation RDAILY 30 Days Qty: 1 0RF fluticasone furoate-vilanterol [Breo Ellipta] 200-25 mcg/dose Blister With Device 1 ea inhalation RDAILY 30 Days Qty: 1 0RF Discharge Orders: Discharge Order (Routine); Ordered 04/20/22 Ordered By: Lamont Damon Diet: regular diet Activity on Discharge: As tolerated Stand Alone Forms: Community Support Care Plan Goals: Maintain mood and safe behaviors Take medications as prescribed Continue to pursue sobriety Practice coping skills Continue with outpatient providers and reach out to them as needed Health Concerns: Mood stability and behaviors Sobriety COPD Salivary gland neoplasm/cancer Plan of Treatment: Follow up with your PCP, psychiatric provider and other outpatient providers regarding above concerns Take medications as prescribed Assessment: Risk assessment at time of discharge:? Patient was interviewed prior to discharge and found to be fully oriented and without any SI or HI. Patient has insight and demonstrates good judgment in terms of wanting to pursue treatment. Patient is not in imminent risk of harm to self or others and has a safety plan that includes presenting to the closest ER or calling 911 if feeling unsafe.? Patient has been observed closely by nursing and unit staff throughout admission; patient has not engaged in any behaviors that suggest dangerousness to self or others and has demonstrated appropriate behaviors and impulse control Discharge Date/Time: 04/20/22 15:58
== END 2022-04-20 15:58 | disposition left against medical advice (07) | DRG 753 ==
LOC: HO.ED 04-14 12:32 → HO.PM5 04-14 14:28
PROVIDERS: Internal Medicine; Physician Assistant; Admitting Provider Psychiatry & Neurology Psychiatry; Emergency Provider Internal Medicine; PCP Family Medicine; Visit Provider Psychiatry & Neurology Psychiatry
DX: F31.9 Bipolar disorder, unspecified (principal); R45.851 Suicidal ideations; C08.9 Malignant neoplasm of major salivary gland, unspecified; F44.5 Conversion disorder with seizures or convulsions; F14.20 Cocaine dependence, uncomplicated; A59.9 Trichomoniasis, unspecified; F43.10 Post-traumatic stress disorder, unspecified; F60.3 Borderline personality disorder; J44.9 Chronic obstructive pulmonary disease, unspecified; G47.33 Obstructive sleep apnea (adult) (pediatric); Z20.822 Contact with and (suspected) exposure to COVID-19; Z79.51 Long term (current) use of inhaled steroids; Z88.0 Allergy status to penicillin; Z91.040 Latex allergy status; Z88.2 Allergy status to sulfonamides; Z88.6 Allergy status to analgesic agent; Z88.8 Allergy status to other drugs, medicaments and biological substances; Z79.899 Other long term (current) drug therapy
CPT/HCPCS: 36415; 71045; 80048; 80051; 80053; 80076; 80143; 80178; 80179; 80307; 81001; 82077; 82565; 83735; 84439; 84443; 84484; 84520; 85025; 87086; 87635; 93005; 94640; 99285

== ENCOUNTER 2022-05-11 19:32 | Inpatient (IN) | payer OTHER, MEDICAID, SELFPAY ==
--- NOTE | ~2022-05-11 | XR_ITS ---
EXAMINATION: XR KNEE, RIGHT CLINICAL INFORMATION: Trauma to right knee, pain on pressure COMPARISON: 09/16/2021 TECHNIQUE: Four views of the right knee. FINDINGS: Moderately severe narrowing of the medial femorotibial compartment is seen with marginal osteophytes and tibia vara. Mild additional degenerative changes are seen at the lateral and patellofemoral joints with osteophytes. No acute fracture or acute osseous abnormality is seen. No joint effusion. XR/XR knee RT 4V IMPRESSION: Progressive arthritis in the right knee with moderately severe medial compartment narrowing and genu varum, increased compared to prior.
[2022-05-11 19:40] VITALS: BP 147/93; PULSE 89; RESP 18; TEMP 36.6; O2SAT 94; BMI 39.5
--- NOTE | 2022-05-11 19:46 | ED_ITS ---
HPI - Psych General Chief Complaint: Psychiatric Symptoms Stated Complaint: si Time Seen by Provider: 05/11/22 19:37 Source: patient and EMS Mode of arrival: EMS Limitations: no limitations History of Present Illness HPI Narrative: Patient comes emergency room complaining of suicidal ideation. Patient states that she will jump off the bridge. Patient has been evaluated at this facility multiple times for SI. patient states that her living situation is very unstable. States that she was staying with some people that were using drugs and drinking a lot of alcohol. Related Data Previous Rx's Medication Instructions Recorded albuterol sulfate 90 mcg/actuation 2 puff inhalation Q4-6H PRN 04/20/22 aerosol inhaler shortness of breath or wheezing 30 days #1 inhaler benztropine 1 mg tablet 1 mg PO BID 30 days #60 tabs 04/20/22 capsaicin 0.025 % topical cream 1 appl topical QID PRN leg pain 30 04/20/22 days #100 grams cholecalciferol (vitamin D3) 25 25 mcg PO DAILY 30 days #30 tabs 04/20/22 mcg (1,000 unit) tablet clonidine HCl 0.2 mg tablet 0.2 mg PO BEDTIME 30 days #30 tabs 04/20/22 cyanocobalamin (vitamin B-12) 100 100 mcg PO DAILY 30 days #30 tabs 04/20/22 mcg tablet (Vitamin B-12) ferrous sulfate 324 mg (65 mg 324 mg PO DAILY 30 days #30 tabs 04/20/22 iron) tablet,delayed release fluticasone furoate 200 1 ea inhalation RDAILY 30 days #1 04/20/22 mcg-vilanterol 25 mcg/dose ea inhalation powder (Breo Ellipta) gabapentin 400 mg capsule 400 mg PO TID 30 days #90 caps 04/20/22 lithium carbonate 600 mg capsule 600 mg PO BID 30 days #60 caps 04/20/22 metronidazole 500 mg tablet 500 mg PO BID 1 day #2 tabs 04/20/22 nitroglycerin 0.4 mg sublingual 0.4 mg sublingual Q5MX3 PRN Chest 04/20/22 tablet (Nitrostat) Pain 30 days #10 tabs olanzapine 10 mg tablet 10 mg PO BEDTIME 30 days #30 tabs 04/20/22 omeprazole 20 mg capsule,delayed 20 mg PO DAILY@30 30 days #30 04/20/22 release caps oxcarbazepine 150 mg tablet 150 mg PO BID 30 days #60 tabs 04/20/22 ropinirole 0.5 mg tablet 0.5 mg PO BEDTIME 30 days #30 tabs 04/20/22 sertraline 50 mg tablet 50 mg PO DAILY 30 days #30 tabs 04/20/22 tiotropium bromide 18 mcg capsule 18 mcg inhalation RDAILY 30 days 04/20/22 with inhalation device (Spiriva #1 inhaler with HandiHaler) trazodone 100 mg tablet 200 mg PO BEDTIME 30 days #60 tabs 04/20/22 valacyclovir 1 gram tablet 1,000 mg PO BID 30 days #60 tabs 04/20/22 Allergies Allergy/AdvReac Type Severity Reaction Status Date / Time aspirin [Aspirin] Allergy Severe HIVES,THROAT Verified 10/13/21 04:51 SWELLS bee pollen [BEE STINGS] Allergy Severe ANAPHYLAXIS Verified 10/13/21 04:51 diphenhydramine Allergy Severe hives, Verified 10/13/21 04:51 [From BENADRYL ALLERGY] throat swells Penicillins [PCN] Allergy Severe HIVES Verified 10/13/21 04:51 THROAT SWELLS Sulfa (Sulfonamide Allergy Intermediate HIVES Verified 10/13/21 04:51 Antibiotics) [SULFA (SULFONAMIDE ANTIBIOTICS)] tramadol [TRAMADOL] Allergy Intermediate ITCHING Verified 10/13/21 04:51 latex [LATEX] Allergy Unknown UNKNOWN Verified 10/13/21 04:51 penicillin G Allergy Unknown Unknown Verified 10/13/21 04:51 levofloxacin [From Levaquin] Allergy Hives Verified 10/13/21 04:51 hydroxyzine AdvReac Severe restless Verified 01/27/22 19:57 legs seafood AdvReac Stomach Verified 03/17/22 12:07 Upset bee stings Allergy Unknown Unknown Uncoded 10/13/21 04:51 DairyCare Allergy Unknown Unknown Uncoded 10/13/21 04:51 sulfa drugs Allergy Unknown Unknown Uncoded 10/13/21 04:51 Review of Systems Review of Systems: Constitutional : No Weight loss, No Fever, No Chills, No Night Sweats, No Fatigue, No Malaise ENT/Mouth : patient complaining of left-sided salivary gland tumor growing and becoming gradually more painful. No Hearing loss, No Ear Pain, No Nasal Congestion, No Sinus Pain, No Hoarseness, No sore throat, No Rhinorrhea, No Swallowing Difficulty Eyes: No Eye Pain, No Swelling, No Redness, No Foreign Body, No Discharge, No Vision Changes Cardiovascular : No Chest Pain, No SOB, No Dyspnea on Exertion, No Orthopnea, No Edema, No Palpitations Respiratory : No Cough, No Sputum, No Wheezing, No Smoke Exposure, No Dyspnea Gastrointestinal : No Nausea, No Vomiting, No Diarrhea, No Constipation, No abdominal Pain, No Hematochezia, No Melena Genitourinary : no irregular bleeding, No Dysuria, No Urinary Frequency, No Hematuria, No Urinary Incontinence, No Urgency, No Flank Pain, No Urinary Flow Changes, No Hesitancy Musculoskeletal : No joint pain, No Myalgias, No Joint Swelling Skin : No Skin Lesions, No rash Neuro : No Weakness, No Numbness, No Paresthesias, No Loss of Consciousness, No Dizziness, No Headache Psych : No Anxiety/Panic, Complaining of depression and suicidal ideation, no homicidal ideation Heme/Lymph: No Bruising, No Bleeding,No Lymphadenopathy Endocrine : No Polyuria, No Polydipsia, No Temperature Intolerance PMFSH Past Medical History Medical History Asthma exacerbation in COPD Bipolar disorder Borderline personality disorder Borderline personality disorder COPD (chronic obstructive pulmonary disease) Depression Depression Drug abuse Herpes Intermittent explosive disorder Mass of parotid gland FABIOLA (obstructive sleep apnea) Post traumatic stress disorder (PTSD) PTSD (post-traumatic stress disorder) PTSD (post-traumatic stress disorder) Tobacco use Surgical History History of ankle surgery History of appendectomy History of back surgery Hx of cholecystectomy Family History Family History Mother COPD (chronic obstructive pulmonary disease) Social History Social History Household Members: None Household Members Other:: Residential in [place] Housing: Other Housing Other:: Sleeps on the couch at [facility] house Do you presently have visiting nurse or other home services: No Unable to assess alcohol history related to: Unknown Alcohol intake: never Patient Tobacco Use Status: Current everyday Tobacco user Tobacco use type: Smokeless Tobacco Cigarette Packs Per Day: 1 Cigarettes Per Day: 20.0 Years Smoked: 20+ e-Cigarette/Vaping Use: Former Use Second Hand Smoke Exposure: Yes Substance Use Type: Crack/Cocaine Advance Directives: Yes Advance Directives on File: Yes Advance Directives Date on File: 12/24/20 service: No Current occupational status: unemployed and disabled Sexual orientation: Did not discuss Physical Exam Vital Signs: Vital Signs: Last Vital Signs Temp 97.8 F 05/11/22 19:40 Pulse 89 05/11/22 19:40 Resp 18 05/11/22 19:40 BP 147/93 H 05/11/22 19:40 Pulse Ox 94 05/11/22 19:40 O2 Del Method 05/11/22 19:40 BMI result Body Mass Index 39.5 Const: Other: Appearance: Alert. Oriented X3. No acute distress. Eyes: Pupils equal, round and reactive to light. ENT: Pharynx normal. Patient has an approximately 6 cm x 6 cm left parotid mass, very tender to touch Neck: Normal inspection. Neck supple. No lymph nodes noted. No crepitus CVS: Normal heart rate and rhythm. Pulses normal. Normal S1 and S2 Respiratory: No respiratory distress. Breath sounds normal. No Wheezing. No rales Abdomen: Soft and nontender. No rigidity. No distention. Skin: Skin warm and dry. Normal skin color. Normal skin turgor. Extremities: No lower extremity edema. No Lacerations. No Rash Neuro: Oriented X 3. No motor deficit. No sensory deficit. Moving all extremities. No slurred speech. CN 2 through 12 grossly intact Psych: calm, cooperative, normal affect, coherent Course Course Course Narrative: patient complaining of suicidal ideation, no homicidal ideation. behavioral health network consult pending. I discussed with the patient that she needs to go to ENT as scheduled at [facility]. 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 Patient has not been compliant with the directions. Behavioral health network consult pending. Physician observation started at 19:50 Discharge Plan Discharge Clinical Impression: Suicidal ideation Patient Disposition: Still a Patient Prescriptions: No Action metronidazole 500 mg Tablet 500 mg PO BID 1 Days Qty: 2 0RF nitroglycerin [Nitrostat] 0.4 mg Tablet, Sublingual 0.4 mg sublingual Q5MX3 PRN (Reason: Chest Pain) 30 Days Qty: 10 0RF oxcarbazepine 150 mg Tablet 150 mg PO BID 30 Days Qty: 60 0RF cyanocobalamin (vitamin B-12) [Vitamin B-12] 100 mcg Tablet 100 mcg PO DAILY 30 Days Qty: 30 0RF valacyclovir 1 gram Tablet 1,000 mg PO BID 30 Days Qty: 60 0RF gabapentin 400 mg Capsule 400 mg PO TID 30 Days Qty: 90 0RF olanzapine 10 mg Tablet 10 mg PO BEDTIME 30 Days Qty: 30 0RF clonidine HCl 0.2 mg Tablet 0.2 mg PO BEDTIME 30 Days Qty: 30 0RF Protocol: Hold for SBP< HOLD for SBP < : 90 trazodone 100 mg Tablet 200 mg PO BEDTIME 30 Days Qty: 60 0RF lithium carbonate 600 mg capsule 600 mg PO BID 30 Days Qty: 60 0RF ropinirole 0.5 mg Tablet 0.5 mg PO BEDTIME 30 Days Qty: 30 0RF benztropine 1 mg Tablet 1 mg PO BID 30 Days Qty: 60 0RF omeprazole 20 mg Capsule,Delayed Release(Dr/Ec) 20 mg PO DAILY@0630 30 Days Qty: 30 0RF capsaicin 0.025 % Cream 1 appl topical QID PRN (Reason: leg pain) 30 Days Qty: 100 0RF Protocol: Apply to: Apply to: legs B/L albuterol sulfate 90 mcg/actuation HFA aerosol inhaler 2 puff inhalation Q4-6H PRN (Reason: shortness of breath or wheezing) 30 Days Qty: 1 0RF sertraline 50 mg Tablet 50 mg PO DAILY 30 Days Qty: 30 0RF Spiriva with HandiHaler 18 mcg Capsule, W/Inhalation Device 18 mcg inhalation RDAILY 30 Days Qty: 1 0RF cholecalciferol (vitamin D3) 25 mcg (1,000 unit) Tablet 25 mcg PO DAILY 30 Days Qty: 30 0RF ferrous sulfate 324 mg (65 mg iron) Tablet,Delayed Release (Dr/Ec) 324 mg PO DAILY 30 Days Qty: 30 0RF fluticasone furoate-vilanterol [Breo Ellipta] 200-25 mcg/dose Blister With Device 1 ea inhalation RDAILY 30 Days Qty: 1 0RF
[2022-05-11 20:09] LABS: Appearance Urine CLOUDY; Color Urine YELLOW; Glucose Urine UA NEG (NEG); Leukocyte Esterase Urine NEG (NEG); Nitrite Urine NEG (NEG); PH 5.5 (5.0-8.0); Specific Gravity - Urine 1.025 (1.005-1.025); Urine Blood NEG (NEG); Urine Ketones NEG (NEG); Urine Protein NEG (NEG-TRACE)
[2022-05-11 20:24] LABS: Amphetamine Screen Urine Not Detected (Not Detect); Barbiturates, Urine Not Detected (Not Detect); Benzodiazepines Screen Urine Not Detected (Not Detect); Cannabinoid Screen Urine Not Detected (Not Detect); Cocaine Screen Urine POSITIVE (Not Detect); Fentanyl, urine POSITIVE (Not Detect); Opiate Screen Urine Not Detected (Not Detect); Phencyclidine Screen Urine Not Detected (Not Detect)
[2022-05-11 20:25] LABS: COVID-19 Test Negative (Negative); IDNOW Serial# 55D5AD1C
[2022-05-11 21:50] LABS: MANUAL DIFF FLAG NO
[2022-05-11 21:51] LABS: Basophils Absolute Auto 0.1 X10*3/uL (0.0-0.2); Basophils Percent Auto 1.2 % (0-2); Eosinophils Absolute Auto 0.1 X10*3/uL (0.0-0.4); Eosinophils Percent Auto 1.3 % (0-4); Hematocrit 42.2 % (37.0-47.0); Hemoglobin 13.5 g/dl (12.0-16.0); Imm Gran Abs Auto 0.01 X10*3/uL (0.00-0.03); Imm Gran Pct Auto 0.1 % (0.0-0.4); Lymphocytes Absolute Auto 2.7 X10*3/uL (1.2-4.9); Lymphocytes Percent Auto 39.3 % (20-40); Mean Corpuscular Hemoglobin 29.7 pg (27.0-33.0); Mean Corpuscular Volume 92.7 fL (80.0-98.0); Mean Platelet Volume 9.8 fL (9.4-12.3); Monocytes Absolute Auto 0.4 X10*3/uL (0.1-1.2); Monocytes Percent Auto 5.3 % (2-11); Neutrophils Absolute Auto 3.6 x10*3/uL (2.0-8.3); Neutrophils Percent Auto 52.8 % (45-73); Platelet Count 254 X10*3/uL (160-400); Red Blood Count 4.55 X10*6/uL (4.20-5.50); Red Cell Distribution Width 12.6 % (11.0-16.0); White Blood Count 6.8 X10*3/uL (4.8-10.8)
[2022-05-11 22:14] LABS: Ethanol < 10 mg/dL
[2022-05-11 22:16] LABS: Anion Gap 13 (12-20); Blood Urea Nitrogen 9 mg/dL (9-16); Calcium 9.1 mg/dL (8.4-10.2); Carbon Dioxide 25 mmol/L (22-29); Chloride 107 mmol/L (96-108); Creatinine Clr Calc Pharmacy 97.8; Estimated Glomerular Filt Rate > 60; Glucose Random 131 mg/dL (60-115); Potassium 3.7 mmol/L (3.3-5.1); Sodium 141 mmol/L (135-145)
[2022-05-11 22:20] LABS: Lithium 0.17 mmol/L (0.60-1.20)
[2022-05-11 22:27] LABS: Acetaminophen LAB < 1 mcg/mL (<30); Salicylate < 5.0 mg/dL (15-30)
--- NOTE | 2022-05-12 | ECG_ITS ---
Test Reason : cp Blood Pressure : / mmHG Vent. Rate : 071 BPM Atrial Rate : 071 BPM P-R Int : 156 ms QRS Dur : 084 ms QT Int : 394 ms P-R-T Axes : -01 040 018 degrees QTc Int : 428 ms Normal sinus rhythm Normal ECG When compared with ECG of 19-APR-2022 00:13, No significant change was found Referred By: Priscila Lynn Electronically Signed By:VAIBHAV KILLIAN MD
[2022-05-12 01:26] VITALS: BP 124/78; PULSE 74; RESP 20; TEMP 36.1; O2SAT 95
[2022-05-12] MEDS: rOPINIRole HCL 0.5 MG TABLET PO ×2 (01:49→23:05)
[2022-05-12] MEDS: OXcarbazepine 150 MG TABLET PO ×3 (01:49→23:06)
[2022-05-12] MEDS: Lithium Carbonate 300 MG CAPSULE 600 MG PO ×3 (01:49→23:06)
[2022-05-12] MEDS: OLANZapine 10 MG TABLET PO ×2 (01:50→23:06)
[2022-05-12] MEDS: traZODone HCL 100 MG TABLET 200 MG PO ×2 (01:50→23:06)
[2022-05-12] MEDS: valACYclovir HCL 1,000 MG TABLET 1000 MG PO ×3 (01:52→23:06)
--- NOTE | 2022-05-12 06:29 | PC.NURSE ---
Patient slept through the night, no distress observed/reported, behavior appropriate and help seeking, disposition per [facility] is section 12 inpatient bed search, medication compliant, VSS, ambulated safely with walker, VSS, will continue to monitor.
--- NOTE | 2022-05-12 07:02 | PC.NURSE ---
patient appears to remain asleep respirations are even and unlabored patient appears in no distress.
[2022-05-12 07:31] VITALS: BP 118/72; PULSE 64; RESP 12; TEMP 36.7; O2SAT 93
[2022-05-12] MEDS: Gabapentin 400 MG CAPSULE PO ×2 (11:37→23:05)
[2022-05-12] MEDS: Sertraline HCL 50 MG TABLET PO (11:37)
[2022-05-12] MEDS: Benztropine Mesylate 1 MG TABLET PO ×2 (11:38→23:07)
[2022-05-12] MEDS: Cyanocobalamin (Vitamin B-12) 100 MCG TABLET PO (11:38)
[2022-05-12] MEDS: Ferrous Sulfate 324 MG TABLET.DR PO (11:38)
[2022-05-12 21:57] VITALS: BMI 73.6
--- NOTE | 2022-05-12 22:37 | PC.ADMIT ---
Pt is a 52 year old female s/p several admissions to . She presented to [facility] via EMS due to +SI with a plan to jump off of a bridge she had been living under. Recent stressor is finding out she has cancer and has not been following up with recommended treatment. Pt is homeless and has been non compliant with medications. She has impaired insight, judgement and impulse control. She reports +AVH when she is under stress. She says she wants a step down to a jail or assisted living.
[2022-05-12 22:59] VITALS: BP 136/82; PULSE 80
[2022-05-12] MEDS: cloNIDine HCL 0.2 MG TABLET PO (23:05)
[2022-05-12] MEDS: Ibuprofen 600 MG TABLET PO (23:07)
[2022-05-13] MEDS: Ferrous Sulfate 324 MG TABLET.DR PO (08:37)
[2022-05-13] MEDS: OXcarbazepine 150 MG TABLET PO ×2 (08:37→20:18)
[2022-05-13] MEDS: Omeprazole 20 MG CAPSULE.DR PO (08:37)
[2022-05-13] MEDS: Cyanocobalamin (Vitamin B-12) 100 MCG TABLET PO (08:37)
[2022-05-13] MEDS: Ibuprofen 600 MG TABLET PO ×2 (08:38→14:45)
[2022-05-13] MEDS: Sertraline HCL 50 MG TABLET PO (08:38)
[2022-05-13] MEDS: Lithium Carbonate 300 MG CAPSULE 600 MG PO ×2 (08:38→20:18)
[2022-05-13] MEDS: Benztropine Mesylate 1 MG TABLET PO ×2 (08:38→20:18)
[2022-05-13] MEDS: Gabapentin 400 MG CAPSULE PO ×2 (08:38→14:45)
[2022-05-13] MEDS: valACYclovir HCL 1,000 MG TABLET 1000 MG PO ×2 (08:38→20:18)
[2022-05-13 09:37] LABS: Estimated Average Glucose 108 mg/dL; Hemoglobin A1c % 5.4 %
[2022-05-13 09:52] LABS: Alanine Aminotransferase 20 U/L (0-31); Albumin Level 3.7 g/dL (3.5-5.0); Alkaline Phosphatase 61 U/L (39-117); Anion Gap 12 (12-20); Aspartate Amino Transferase 13 U/L (5-31); Bilirubin Total 0.2 mg/dL (0.0-1.0); Blood Urea Nitrogen 11 mg/dL (9-16); Calcium 9.3 mg/dL (8.4-10.2); Carbon Dioxide 28 mmol/L (22-29); Chloride 105 mmol/L (96-108); Cholesterol 147 mg/dL; Creatinine Clr Calc Pharmacy 182.8; Estimated Glomerular Filt Rate > 60; Glucose Fasting 91 mg/dL (60-99); HDL Cholesterol 38 mg/dL; LDL Cholesterol Calculated 77 mg/dl; Potassium 4.3 mmol/L (3.3-5.1); Sodium 141 mmol/L (135-145); Total Protein 5.8 g/dL (6.5-8.0); Triglycerides 161 mg/dL
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
[2022-05-13 10:41] LABS: Vitamin B12 372 pg/mL (200-900)
[2022-05-13 10:51] VITALS: BP 113/63; PULSE 72; RESP 16
[2022-05-13] MEDS: Nicotine 14 MG PATCH.TD24 TRANSDERMA (14:47)
[2022-05-13] MEDS: Gabapentin 100 MG CAPSULE 200 MG PO (15:59)
[2022-05-13] MEDS: Gabapentin 300 MG CAPSULE 600 MG PO (20:18)
[2022-05-13] MEDS: OLANZapine 10 MG TABLET PO (20:18)
[2022-05-13] MEDS: rOPINIRole HCL 0.5 MG TABLET PO (20:18)
[2022-05-13] MEDS: traZODone HCL 100 MG TABLET 200 MG PO (20:18)
[2022-05-13] MEDS: cloNIDine HCL 0.2 MG TABLET PO (20:18)
[2022-05-13 20:21] VITALS: BP 106/56; PULSE 84
[2022-05-14 06:00] VITALS: BP 96/55; PULSE 70; RESP 18; TEMP 36.4; O2SAT 89
[2022-05-14] MEDS: Omeprazole 20 MG CAPSULE.DR PO (06:22)
[2022-05-14 08:15] VITALS: BP 115/85; PULSE 87; RESP 16; O2SAT 91
[2022-05-14] MEDS: Cyanocobalamin (Vitamin B-12) 100 MCG TABLET PO (08:58)
[2022-05-14] MEDS: valACYclovir HCL 1,000 MG TABLET 1000 MG PO ×2 (08:58→20:05)
[2022-05-14] MEDS: Lithium Carbonate 300 MG CAPSULE 600 MG PO ×2 (08:58→20:05)
[2022-05-14] MEDS: Sertraline HCL 50 MG TABLET PO (08:58)
[2022-05-14] MEDS: Ferrous Sulfate 324 MG TABLET.DR PO (08:58)
[2022-05-14] MEDS: OXcarbazepine 150 MG TABLET PO ×2 (08:58→20:06)
[2022-05-14] MEDS: Nicotine 14 MG PATCH.TD24 TRANSDERMA (08:58)
[2022-05-14] MEDS: Gabapentin 300 MG CAPSULE 600 MG PO ×3 (08:59→20:06)
[2022-05-14] MEDS: Benztropine Mesylate 1 MG TABLET PO ×2 (09:10→20:05)
--- NOTE | 2022-05-14 10:04 | P.PNPSI_ITS ---
Subjective Subjective Date of Service: 05/14/22 Reason For Visit: SI Interim History: pt says she's feeling a little off... pt denies AH and SI is abating and only a little bit. Pt c/o feeling dizzy and got rescue inhaler which helped. Mental Status Exam Mental Status Exam Narrative: Pt is alert and oriented; behavior is cooperative, appropriate; dressed in casual attire with hair pulled back and adequate hygiene, uses a walker; mood is described as a little off; affect congruent; eye contact appropriate; Speech is normal rate, volume and prosody and not pressured; no psychomotor agitation/retardation present; thought process is organized and goal directed; Thought content is on stabilizing, dealing with malignancy, tx; otherwise pertinent to relevant topics and without any delusional content, paranoid ideations or grandiosity; internittent passive SI; no HI. AH present; Patients insight and judgment are impaired but improving. Diagnostics Vital Signs (24Hr): Vital Signs - 24 hr 05/13/22 10:51 05/13/22 20:21 05/14/22 06:00 Temperature 97.5 F Pulse Rate 72 84 70 Respiratory Rate 16 18 Blood Pressure 113/63 106/56 L 96/55 L Pulse Oximetry 89 L Oxygen Delivery Method Room Air 05/14/22 08:15 Temperature Pulse Rate 87 Respiratory Rate 16 Blood Pressure 115/85 Pulse Oximetry 91 L Oxygen Delivery Method Room Air BMI result Body Mass Index 73.6 Labs Results: 05/11/22 21:45 05/13/22 08:01 Labs: Laboratory Results - last 48 hr 05/13/22 05/13/22 05/13/22 08:01 08:01 08:01 Sodium 141 Potassium 4.3 Chloride 105 Carbon Dioxide 28 Anion Gap 12 BUN 11 Creatinine 0.68 Estim Creat Clear Calc 182.8 Estimated GFR > 60 Fasting Glucose 91 Estimat Average Glucose 108 Hemoglobin A1c % 5.4 Calcium 9.3 Total Bilirubin 0.2 AST 13 ALT 20 Alkaline Phosphatase 61 Total Protein 5.8 L Albumin 3.7 Triglycerides 161 Cholesterol 147 D LDL Cholesterol, Calc 77 HDL Cholesterol 38 D Vitamin B12 372 Folate 9.0 Medications Medications Current Medications Acetaminophen (Acetaminophen 325 Mg Tablet) 650 mg PO Q6H PRN PRN Reason: Headache/Pain Mild Scale (1-3) Al Hydroxide/Mg Hydroxide (Magnesium Hydrox/Alum Hydrox 30 Ml Oral.Susp) 30 ml PO Q6H PRN PRN Reason: Heartburn/Nausea Albuterol Sulfate (Albuterol Sulfate 90 Mcg 8 Gm Inhaler) 2 puff INHALE Q4H PRN PRN Reason: shortness of breath or wheezing Benztropine Mesylate (Benztropine Mesylate 1 Mg Tablet) 1 mg PO BID [facility] Last Admin: 05/14/22 09:10 Dose: 1 mg Clonidine HCl (Clonidine Hcl 0.2 Mg Tablet) 0.2 mg PO BEDTIME [facility]; Protocol Last Admin: 05/13/22 20:18 Dose: 0.2 mg Cyanocobalamin (Cyanocobalamin (Vitamin B-12) 100 Mcg Tablet) 100 mcg PO DAILY [facility] Last Admin: 05/14/22 08:58 Dose: 100 mcg Ferrous Sulfate (Ferrous Sulfate 324 Mg Tablet.) 324 mg PO DAILY [facility] Last Admin: 05/14/22 08:58 Dose: 324 mg Gabapentin (Gabapentin 300 Mg Capsule) 600 mg PO TID [facility] Last Admin: 05/14/22 08:59 Dose: 600 mg [place] Carbonate ([place] Carbonate 300 Mg Capsule) 600 mg PO BID [facility] Last Admin: 05/14/22 08:58 Dose: 600 mg Magnesium Hydroxide (Milk Of Magnesia 30 Ml Oral.Susp) 30 ml PO DAILY PRN PRN Reason: Constipation Nicotine (Nicotine 14 Mg Patch.Td24) 14 mg TRANSDERMA DAILY [facility] Last Admin: 05/14/22 08:58 Dose: 14 mg Nitroglycerin (Nitroglycerin 0.4 Mg Tab.Subl) 0.4 mg SUBLINGUAL Q5MX3 PRN PRN Reason: Chest Pain Olanzapine (Olanzapine 10 Mg Tablet) 10 mg PO BEDTIME [facility] Last Admin: 05/13/22 20:18 Dose: 10 mg Omeprazole (Omeprazole 20 Mg Capsule.) 20 mg PO DAILY@0630 [facility] Last Admin: 05/14/22 06:22 Dose: 20 mg Oxcarbazepine (Oxcarbazepine 150 Mg Tablet) 150 mg PO BID [facility] Last Admin: 05/14/22 08:58 Dose: 150 mg Ropinirole HCl (Ropinirole Hcl 0.5 Mg Tablet) 0.5 mg PO BEDTIME [facility] Last Admin: 05/13/22 20:18 Dose: 0.5 mg Sertraline HCl (Sertraline Hcl 50 Mg Tablet) 50 mg PO DAILY [facility] Last Admin: 05/14/22 08:58 Dose: 50 mg Tiotropium [place] (Tiotropium [place] 18 Mcg Cap.W.Dev) 1 puff INHALE DAILY [facility] Last Admin: 05/14/22 08:59 Dose: 1 puff Trazodone HCl (Trazodone Hcl 100 Mg Tablet) 200 mg PO BEDTIME [facility] Last Admin: 05/13/22 20:18 Dose: 200 mg Trazodone HCl (Trazodone Hcl 50 Mg Tablet) 50 mg PO BEDTIME PRN PRN Reason: Insomnia Valacyclovir HCl (Valacyclovir Hcl 1,000 Mg Tablet) 1,000 mg PO BID [facility] Last Admin: 05/14/22 08:58 Dose: 1,000 mg Allergies Allergies Allergy/AdvReac Type Severity Reaction Status Date / Time aspirin [Aspirin] Allergy Severe HIVES,THROAT Verified 10/13/21 04:51 SWELLS bee pollen [BEE STINGS] Allergy Severe ANAPHYLAXIS Verified 10/13/21 04:51 diphenhydramine Allergy Severe hives, Verified 10/13/21 04:51 [From BENADRYL ALLERGY] throat swells Penicillins [PCN] Allergy Severe HIVES Verified 10/13/21 04:51 THROAT SWELLS Sulfa (Sulfonamide Allergy Intermediate HIVES Verified 10/13/21 04:51 Antibiotics) [SULFA (SULFONAMIDE ANTIBIOTICS)] tramadol [TRAMADOL] Allergy Intermediate ITCHING Verified 10/13/21 04:51 latex [LATEX] Allergy Unknown UNKNOWN Verified 10/13/21 04:51 penicillin G Allergy Unknown Unknown Verified 10/13/21 04:51 levofloxacin [From Levaquin] Allergy Hives Verified 10/13/21 04:51 hydroxyzine AdvReac Severe restless Verified 01/27/22 19:57 legs seafood AdvReac Stomach Verified 03/17/22 12:07 Upset bee stings Allergy Unknown Unknown Uncoded 10/13/21 04:51 DairyCare Allergy Unknown Unknown Uncoded 10/13/21 04:51 sulfa drugs Allergy Unknown Unknown Uncoded 10/13/21 04:51 Assessment & Plan Assessment & Plan (1) Bipolar I disorder: Status: Acute Code(s): F31.9 - Bipolar disorder, unspecified (2) PTSD (post-traumatic stress disorder): Status: Acute Code(s): F43.10 - Post-traumatic stress disorder, unspecified (3) Borderline personality disorder: Status: Acute Code(s): F60.3 - Borderline personality disorder (4) Cocaine use disorder: Status: Acute Code(s): F14.10 - Cocaine abuse, uncomplicated (5) Neoplasm of parotid gland: Status: Acute Code(s): D49.0 - Neoplasm of unspecified behavior of digestive system (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 Patient was recently discharged from on 04/20/22. Patient reports that she has not been taking her medications for over week; she also says she has not slept hardly at all for about a week. She denies however relapsing with any drugs including cocaine or fentanyl, although her UDS is positive for both. Patient said she would like to get back on her medications. -remains ambivalent about surgery; she wants it but is very anxious about it 05/14 stabilizing Plan: CV Q 15 minute checks CPAP and one-to-one while on CPAP Restart home medications Increase gabapentin to 600mg TID (up from 400mg) I spent minutes with the patient and/or on the patient floor today, greater than?50% of which was spent counseling/coordinating care. Patient educated on: diagnosis, medication risk/benefits and medical condition Informed Consent: understands Reason for contiued inpatient stay Substantial Risk for: med/psych decompensation
[2022-05-14] MEDS: Albuterol Sulfate 90 MCG 8 GM INHALER 2 PUFF INHALE (13:20)
[2022-05-14 13:37] VITALS: BP 118/69; PULSE 93; RESP 16; O2SAT 93
[2022-05-14] MEDS: Loperamide HCl 2 MG CAPSULE PO (16:34)
[2022-05-14] MEDS: traZODone HCL 100 MG TABLET 200 MG PO (20:05)
[2022-05-14] MEDS: cloNIDine HCL 0.2 MG TABLET PO (20:05)
[2022-05-14] MEDS: OLANZapine 10 MG TABLET PO (20:06)
[2022-05-14] MEDS: rOPINIRole HCL 0.5 MG TABLET PO (20:06)
[2022-05-14 20:24] VITALS: BP 135/70; PULSE 75
[2022-05-15] MEDS: Acetaminophen 325 MG TABLET 650 MG PO ×2 (04:12→20:16)
[2022-05-15 06:00] VITALS: BP 128/70; PULSE 64; TEMP 36.3; O2SAT 96
[2022-05-15] MEDS: OXcarbazepine 150 MG TABLET PO ×2 (09:15→20:12)
[2022-05-15] MEDS: Benztropine Mesylate 1 MG TABLET PO ×2 (09:15→20:11)
[2022-05-15] MEDS: Nicotine 14 MG PATCH.TD24 TRANSDERMA (09:15)
[2022-05-15] MEDS: Cyanocobalamin (Vitamin B-12) 100 MCG TABLET PO (09:15)
[2022-05-15] MEDS: Gabapentin 300 MG CAPSULE 600 MG PO ×3 (09:15→20:12)
[2022-05-15] MEDS: valACYclovir HCL 1,000 MG TABLET 1000 MG PO ×2 (09:15→20:16)
[2022-05-15] MEDS: Lithium Carbonate 300 MG CAPSULE 600 MG PO ×2 (09:15→20:12)
[2022-05-15] MEDS: Sertraline HCL 50 MG TABLET PO (09:15)
[2022-05-15] MEDS: Ferrous Sulfate 324 MG TABLET.DR PO (09:15)
[2022-05-15] MEDS: Omeprazole 20 MG CAPSULE.DR PO (09:15)
--- NOTE | 2022-05-15 13:00 | HO.PSYCHPN ---
Subjective Subjective Date of Service: 05/15/22 Reason For Visit: SI Interim History: Patient reports that she remains very tired and wants to rest. SI has fully resolved and no auditory hallucinations. No other complaints. Mental Status Exam Mental Status Exam Narrative: Pt is alert and oriented; behavior is sleepy but arousable; dressed in casual attire with hair pulled back and adequate hygiene, uses a walker; mood is described as tired; affect congruent; eye contact appropriate; Speech is normal rate, volume and prosody and not pressured; no psychomotor agitation/retardation present; thought process is organized and goal directed; Thought content is on stabilizing, dealing with malignancy, tx; otherwise pertinent to relevant topics and without any delusional content, paranoid ideations or grandiosity; no SI; no HI. AH present; Patients insight and judgment are fair. Diagnostics Vital Signs (24Hr): Vital Signs - 24 hr 05/14/22 13:37 05/14/22 20:24 05/15/22 06:00 Temperature 97.4 F Pulse Rate 93 75 64 Respiratory Rate 16 Blood Pressure 118/69 135/70 128/70 Pulse Oximetry 93 96 Oxygen Delivery Method Room Air Room Air BMI result Body Mass Index 73.6 Labs Results: 05/11/22 21:45 05/13/22 08:01 Medications Medications Current Medications Acetaminophen (Acetaminophen 325 Mg Tablet) 650 mg PO Q6H PRN PRN Reason: Headache/Pain Mild Scale (1-3) Last Admin: 05/15/22 04:12 Dose: 650 mg Al Hydroxide/Mg Hydroxide (Magnesium Hydrox/Alum Hydrox 30 Ml Oral.Susp) 30 ml PO Q6H PRN PRN Reason: Heartburn/Nausea Albuterol Sulfate (Albuterol Sulfate 90 Mcg 8 Gm Inhaler) 2 puff INHALE Q4H PRN PRN Reason: shortness of breath or wheezing Last Admin: 05/14/22 13:20 Dose: 2 puff Albuterol/Ipratropium (Albuterol/Iprat 2.5/0.5mg 3 Ml Ampul.Neb) 1.5 ml INHALE Q20M PRN PRN Reason: Shortness of Breath Benztropine Mesylate (Benztropine Mesylate 1 Mg Tablet) 1 mg PO BID [facility] Last Admin: 05/15/22 09:15 Dose: 1 mg Clonidine HCl (Clonidine Hcl 0.2 Mg Tablet) 0.2 mg PO BEDTIME [facility]; Protocol Last Admin: 05/14/22 20:05 Dose: 0.2 mg Cyanocobalamin (Cyanocobalamin (Vitamin B-12) 100 Mcg Tablet) 100 mcg PO DAILY [facility] Last Admin: 05/15/22 09:15 Dose: 100 mcg Ferrous Sulfate (Ferrous Sulfate 324 Mg Tablet.) 324 mg PO DAILY [facility] Last Admin: 05/15/22 09:15 Dose: 324 mg Gabapentin (Gabapentin 300 Mg Capsule) 600 mg PO TID [facility] Last Admin: 05/15/22 09:15 Dose: 600 mg [place] Carbonate ([place] Carbonate 300 Mg Capsule) 600 mg PO BID [facility] Last Admin: 05/15/22 09:15 Dose: 600 mg Loperamide HCl (Loperamide Hcl 2 Mg Capsule) 2 mg PO Q4H PRN PRN Reason: Loose Stool Magnesium Hydroxide (Milk Of Magnesia 30 Ml Oral.Susp) 30 ml PO DAILY PRN PRN Reason: Constipation Nicotine (Nicotine 14 Mg Patch.Td24) 14 mg TRANSDERMA DAILY [facility] Last Admin: 05/15/22 09:15 Dose: 14 mg Nitroglycerin (Nitroglycerin 0.4 Mg Tab.Subl) 0.4 mg SUBLINGUAL Q5MX3 PRN PRN Reason: Chest Pain Olanzapine (Olanzapine 10 Mg Tablet) 10 mg PO BEDTIME [facility] Last Admin: 05/14/22 20:06 Dose: 10 mg Omeprazole (Omeprazole 20 Mg Capsule.) 20 mg PO DAILY@0630 [facility] Last Admin: 05/15/22 09:15 Dose: 20 mg Oxcarbazepine (Oxcarbazepine 150 Mg Tablet) 150 mg PO BID [facility] Last Admin: 05/15/22 09:15 Dose: 150 mg Ropinirole HCl (Ropinirole Hcl 0.5 Mg Tablet) 0.5 mg PO BEDTIME [facility] Last Admin: 05/14/22 20:06 Dose: 0.5 mg Sertraline HCl (Sertraline Hcl 50 Mg Tablet) 50 mg PO DAILY [facility] Last Admin: 05/15/22 09:15 Dose: 50 mg Tiotropium [place] (Tiotropium [place] 18 Mcg Cap.W.Dev) 1 puff INHALE DAILY [facility] Last Admin: 05/15/22 09:19 Dose: Not Given Trazodone HCl (Trazodone Hcl 100 Mg Tablet) 200 mg PO BEDTIME [facility] Last Admin: 05/14/22 20:05 Dose: 200 mg Trazodone HCl (Trazodone Hcl 50 Mg Tablet) 50 mg PO BEDTIME PRN PRN Reason: Insomnia Valacyclovir HCl (Valacyclovir Hcl 1,000 Mg Tablet) 1,000 mg PO BID [facility] Last Admin: 05/15/22 09:15 Dose: 1,000 mg Allergies Allergies Allergy/AdvReac Type Severity Reaction Status Date / Time aspirin [Aspirin] Allergy Severe HIVES,THROAT Verified 10/13/21 04:51 SWELLS bee pollen [BEE STINGS] Allergy Severe ANAPHYLAXIS Verified 10/13/21 04:51 diphenhydramine Allergy Severe hives, Verified 10/13/21 04:51 [From BENADRYL ALLERGY] throat swells Penicillins [PCN] Allergy Severe HIVES Verified 10/13/21 04:51 THROAT SWELLS Sulfa (Sulfonamide Allergy Intermediate HIVES Verified 10/13/21 04:51 Antibiotics) [SULFA (SULFONAMIDE ANTIBIOTICS)] tramadol [TRAMADOL] Allergy Intermediate ITCHING Verified 10/13/21 04:51 latex [LATEX] Allergy Unknown UNKNOWN Verified 10/13/21 04:51 penicillin G Allergy Unknown Unknown Verified 10/13/21 04:51 levofloxacin [From Levaquin] Allergy Hives Verified 10/13/21 04:51 hydroxyzine AdvReac Severe restless Verified 01/27/22 19:57 legs seafood AdvReac Stomach Verified 03/17/22 12:07 Upset bee stings Allergy Unknown Unknown Uncoded 10/13/21 04:51 D[employer] Allergy Unknown Unknown Uncoded 10/13/21 04:51 sulfa drugs Allergy Unknown Unknown Uncoded 10/13/21 04:51 Assessment & Plan Assessment & Plan (1) Bipolar I disorder: Status: Acute Code(s): F31.9 - Bipolar disorder, unspecified (2) PTSD (post-traumatic stress disorder): Status: Acute Code(s): F43.10 - Post-traumatic stress disorder, unspecified (3) Borderline personality disorder: Status: Acute Code(s): F60.3 - Borderline personality disorder (4) Cocaine use disorder: Status: Acute Code(s): F14.10 - Cocaine abuse, uncomplicated (5) Neoplasm of parotid gland: Status: Acute Code(s): D49.0 - Neoplasm of unspecified behavior of digestive system (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 Patient was recently discharged from on 04/20/22. Patient reports that she has not been taking her medications for over week; she also says she has not slept hardly at all for about a week. She denies however relapsing with any drugs including cocaine or fentanyl, although her UDS is positive for both. Patient said she would like to get back on her medications. -remains ambivalent about surgery; she wants it but is very anxious about it 05/14 stabilizing 05/15 SI has resolved; no AH; continue current treatment regimen Plan: CV Q 15 minute checks CPAP and one-to-one while on CPAP Restart home medications Increase gabapentin to 600mg TID (up from 400mg) I spent minutes with the patient and/or on the patient floor today, greater than?50% of which was spent counseling/coordinating care. Reason for contiued inpatient stay Substantial Risk for: rapid decompensation
[2022-05-15 16:53] VITALS: BP 96/55; PULSE 84; RESP 20; TEMP 37.6; O2SAT 96
[2022-05-15] MEDS: cloNIDine HCL 0.2 MG TABLET PO (20:11)
[2022-05-15] MEDS: rOPINIRole HCL 0.5 MG TABLET PO (20:12)
[2022-05-15] MEDS: OLANZapine 10 MG TABLET PO (20:12)
[2022-05-15] MEDS: traZODone HCL 100 MG TABLET 200 MG PO (20:13)
[2022-05-16] MEDS: Acetaminophen 325 MG TABLET 650 MG PO ×3 (05:18→20:55)
[2022-05-16] MEDS: Omeprazole 20 MG CAPSULE.DR PO (05:18)
[2022-05-16 06:00] VITALS: BP 107/64; PULSE 66; TEMP 36.8; O2SAT 94
[2022-05-16] MEDS: Nicotine 14 MG PATCH.TD24 TRANSDERMA (08:46)
[2022-05-16] MEDS: Gabapentin 300 MG CAPSULE 600 MG PO ×3 (08:47→20:54)
[2022-05-16] MEDS: Lithium Carbonate 300 MG CAPSULE 600 MG PO ×2 (08:47→20:54)
[2022-05-16] MEDS: Cyanocobalamin (Vitamin B-12) 100 MCG TABLET PO (08:48)
[2022-05-16] MEDS: Benztropine Mesylate 1 MG TABLET PO ×2 (08:48→20:54)
[2022-05-16] MEDS: Ferrous Sulfate 324 MG TABLET.DR PO (08:48)
[2022-05-16] MEDS: valACYclovir HCL 1,000 MG TABLET 1000 MG PO ×2 (08:48→20:56)
[2022-05-16] MEDS: OXcarbazepine 150 MG TABLET PO ×2 (08:49→20:55)
[2022-05-16] MEDS: Sertraline HCL 50 MG TABLET PO (08:49)
--- NOTE | 2022-05-16 15:07 | P.PNPSI_ITS ---
Subjective Subjective Date of Service: 05/16/22 Reason For Visit: SI Interim History: Patient continues to feel tired. But no dizziness. She is more pleasant and joking around. Says depression is over denies any SI; denies any AH. Patient says that her right leg is hurting quite a bit and she thinks she fell on it and hit her knee. Office Nurse Practitioner briefly examined and knee and tibia tender on palpation. Sent for x-ray Mental Status Exam Mental Status Exam Narrative: Pt is alert and oriented; behavior is calm, cooperative; dressed in casual attire with hair pulled back and adequate hygiene, uses a walker; mood is described as tired; affect congruent; eye contact appropriate; Speech is normal rate, volume and prosody and not pressured; no psychomotor agitation/retardation present; thought process is organized and goal directed; Thought content is on stabilizing, dealing with malignancy, tx; otherwise pertinent to relevant topics and without any delusional content, paranoid ideations or grandiosity; no SI; no HI. No AVH; Patients insight and judgment are fair. Diagnostics Vital Signs (24Hr): Vital Signs - 24 hr 05/15/22 16:53 05/16/22 06:00 Temperature 99.7 F 98.2 F Pulse Rate 84 66 Respiratory Rate 20 Blood Pressure 96/55 L 107/64 Pulse Oximetry 96 94 Oxygen Delivery Method Room Air Room Air BMI result Body Mass Index 73.6 Labs Results: 05/11/22 21:45 05/13/22 08:01 Medications Medications Current Medications Acetaminophen (Acetaminophen 325 Mg Tablet) 650 mg PO Q6H PRN PRN Reason: Headache/Pain Mild Scale (1-3) Last Admin: 05/16/22 12:34 Dose: 650 mg Al Hydroxide/Mg Hydroxide (Magnesium Hydrox/Alum Hydrox 30 Ml Oral.Susp) 30 ml PO Q6H PRN PRN Reason: Heartburn/Nausea Albuterol Sulfate (Albuterol Sulfate 90 Mcg 8 Gm Inhaler) 2 puff INHALE Q4H PRN PRN Reason: shortness of breath or wheezing Last Admin: 05/14/22 13:20 Dose: 2 puff Albuterol/Ipratropium (Albuterol/Iprat 2.5/0.5mg 3 Ml Ampul.Neb) 1.5 ml INHALE Q20M PRN PRN Reason: Shortness of Breath Benztropine Mesylate (Benztropine Mesylate 1 Mg Tablet) 1 mg PO BID [facility] Last Admin: 05/16/22 08:48 Dose: 1 mg Clonidine HCl (Clonidine Hcl 0.2 Mg Tablet) 0.2 mg PO BEDTIME [facility]; Protocol Last Admin: 05/15/22 20:11 Dose: 0.2 mg Cyanocobalamin (Cyanocobalamin (Vitamin B-12) 100 Mcg Tablet) 100 mcg PO DAILY [facility] Last Admin: 05/16/22 08:48 Dose: 100 mcg Ferrous Sulfate (Ferrous Sulfate 324 Mg Tablet.) 324 mg PO DAILY [facility] Last Admin: 05/16/22 08:48 Dose: 324 mg Gabapentin (Gabapentin 300 Mg Capsule) 600 mg PO TID [facility] Last Admin: 05/16/22 14:16 Dose: 600 mg [place] Carbonate ([place] Carbonate 300 Mg Capsule) 600 mg PO BID [facility] Last Admin: 05/16/22 08:47 Dose: 600 mg Loperamide HCl (Loperamide Hcl 2 Mg Capsule) 2 mg PO Q4H PRN PRN Reason: Loose Stool Magnesium Hydroxide (Milk Of Magnesia 30 Ml Oral.Susp) 30 ml PO DAILY PRN PRN Reason: Constipation Nicotine (Nicotine 14 Mg Patch.Td24) 14 mg TRANSDERMA DAILY [facility] Last Admin: 05/16/22 08:46 Dose: 14 mg Nitroglycerin (Nitroglycerin 0.4 Mg Tab.Subl) 0.4 mg SUBLINGUAL Q5MX3 PRN PRN Reason: Chest Pain Olanzapine (Olanzapine 10 Mg Tablet) 10 mg PO BEDTIME [facility] Last Admin: 05/15/22 20:12 Dose: 10 mg Omeprazole (Omeprazole 20 Mg Capsule.) 20 mg PO DAILY@0630 [facility] Last Admin: 05/16/22 05:18 Dose: 20 mg Oxcarbazepine (Oxcarbazepine 150 Mg Tablet) 150 mg PO BID [facility] Last Admin: 05/16/22 08:49 Dose: 150 mg Ropinirole HCl (Ropinirole Hcl 0.5 Mg Tablet) 0.5 mg PO BEDTIME [facility] Last Admin: 05/15/22 20:12 Dose: 0.5 mg Sertraline HCl (Sertraline Hcl 50 Mg Tablet) 50 mg PO DAILY [facility] Last Admin: 05/16/22 08:49 Dose: 50 mg Tiotropium [place] (Tiotropium [place] 18 Mcg Cap.W.Dev) 1 puff INHALE DAILY [facility] Last Admin: 05/16/22 08:49 Dose: 1 puff Trazodone HCl (Trazodone Hcl 100 Mg Tablet) 200 mg PO BEDTIME [facility] Last Admin: 05/15/22 20:13 Dose: 200 mg Trazodone HCl (Trazodone Hcl 50 Mg Tablet) 50 mg PO BEDTIME PRN PRN Reason: Insomnia Valacyclovir HCl (Valacyclovir Hcl 1,000 Mg Tablet) 1,000 mg PO BID [facility] Last Admin: 05/16/22 08:48 Dose: 1,000 mg Allergies Allergies Allergy/AdvReac Type Severity Reaction Status Date / Time aspirin [Aspirin] Allergy Severe HIVES,THROAT Verified 10/13/21 04:51 SWELLS bee pollen [BEE STINGS] Allergy Severe ANAPHYLAXIS Verified 10/13/21 04:51 diphenhydramine Allergy Severe hives, Verified 10/13/21 04:51 [From BENADRYL ALLERGY] throat swells Penicillins [PCN] Allergy Severe HIVES Verified 10/13/21 04:51 THROAT SWELLS Sulfa (Sulfonamide Allergy Intermediate HIVES Verified 10/13/21 04:51 Antibiotics) [SULFA (SULFONAMIDE ANTIBIOTICS)] tramadol [TRAMADOL] Allergy Intermediate ITCHING Verified 10/13/21 04:51 latex [LATEX] Allergy Unknown UNKNOWN Verified 10/13/21 04:51 penicillin G Allergy Unknown Unknown Verified 10/13/21 04:51 levofloxacin [From Levaquin] Allergy Hives Verified 10/13/21 04:51 hydroxyzine AdvReac Severe restless Verified 01/27/22 19:57 legs seafood AdvReac Stomach Verified 03/17/22 12:07 Upset bee stings Allergy Unknown Unknown Uncoded 10/13/21 04:51 D[employer] Allergy Unknown Unknown Uncoded 10/13/21 04:51 sulfa drugs Allergy Unknown Unknown Uncoded 10/13/21 04:51 Assessment & Plan Assessment & Plan (1) Bipolar I disorder: Status: Acute Code(s): F31.9 - Bipolar disorder, unspecified (2) PTSD (post-traumatic stress disorder): Status: Acute Code(s): F43.10 - Post-traumatic stress disorder, unspecified (3) Borderline personality disorder: Status: Acute Code(s): F60.3 - Borderline personality disorder (4) Cocaine use disorder: Status: Acute Code(s): F14.10 - Cocaine abuse, uncomplicated (5) Neoplasm of parotid gland: Status: Acute Code(s): D49.0 - Neoplasm of unspecified behavior of digestive system (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 Patient was recently discharged from on 04/20/22. Patient reports that she has not been taking her medications for over week; she also says she has not slept hardly at all for about a week. She denies however relapsing with any drugs including cocaine or fentanyl, although her UDS is positive for both. Patient said she would like to get back on her medications. -remains ambivalent about surgery; she wants it but is very anxious about it 05/14 stabilizing 05/15 SI has resolved; no AH; continue current treatment regimen 05/16 depression resolved; no SI HI or AVH. Complains of right knee pain likely from recent fall; send for x-ray Plan: CV Q 15 minute checks Right knee and lower limb x-ray CPAP and one-to-one while on CPAP Restart home medications Increase gabapentin to 600mg TID (up from 400mg) I spent minutes with the patient and/or on the patient floor today, gr eater than?50% of which was spent counseling/coordinating care. Patient educated on: medication risk/benefits and medical condition Informed Consent: understands Reason for contiued inpatient stay Substantial Risk for: stable for discharge
[2022-05-16 18:00] VITALS: BP 133/66; PULSE 78; RESP 18; TEMP 36.5; O2SAT 94
[2022-05-16] MEDS: OLANZapine 10 MG TABLET PO (20:54)
[2022-05-16] MEDS: cloNIDine HCL 0.2 MG TABLET PO (20:54)
[2022-05-16] MEDS: traZODone HCL 100 MG TABLET 200 MG PO (20:55)
[2022-05-16] MEDS: rOPINIRole HCL 0.5 MG TABLET PO (20:55)
[2022-05-17] MEDS: oxyCODONE HCl Immed Release 5 MG TABLET PO ×2 (04:53→10:45)
[2022-05-17] MEDS: Omeprazole 20 MG CAPSULE.DR PO (04:54)
[2022-05-17 08:28] VITALS: BP 119/64; PULSE 78; RESP 18; TEMP 36.3; O2SAT 94
[2022-05-17] MEDS: Ferrous Sulfate 324 MG TABLET.DR PO (08:29)
[2022-05-17] MEDS: Nicotine 14 MG PATCH.TD24 TRANSDERMA (08:29)
[2022-05-17] MEDS: Cyanocobalamin (Vitamin B-12) 100 MCG TABLET PO (08:30)
[2022-05-17] MEDS: Benztropine Mesylate 1 MG TABLET PO ×2 (08:30→20:37)
[2022-05-17] MEDS: OXcarbazepine 150 MG TABLET PO ×2 (08:30→20:37)
[2022-05-17] MEDS: Lithium Carbonate 300 MG CAPSULE 600 MG PO ×2 (08:30→20:37)
[2022-05-17] MEDS: Sertraline HCL 50 MG TABLET PO (08:30)
[2022-05-17] MEDS: valACYclovir HCL 1,000 MG TABLET 1000 MG PO ×2 (08:30→20:37)
[2022-05-17] MEDS: Gabapentin 300 MG CAPSULE 600 MG PO ×3 (08:30→20:37)
[2022-05-17 08:45] LABS: Lithium 1.01 mmol/L (0.60-1.20)
[2022-05-17 08:51] LABS: Blood Urea Nitrogen 15 mg/dL (9-16); Creatinine Clr Calc Pharmacy 161.5; Estimated Glomerular Filt Rate > 60
[2022-05-17 09:13] LABS: TSH reflex Free T4 2.96 uIU/mL (0.32-4.0)
--- NOTE | 2022-05-17 10:18 | P.PNPSI_ITS ---
Subjective Subjective Date of Service: 05/17/22 Reason For Visit: SI Interim History: Complains of right knee pain which does look mildly swollen; patient said oxycodone help but then felt a little itchy so she wanted to stop taking it. Patient also complaining of intermittent dizziness though vitals are within normal limits. Otherwise Patient feels back to her regular self, no depression, no SI no HI no AVH. Patient reports wanting to proceed with surgery for her malignancy however also remains ambivalent. Mental Status Exam Mental Status Exam Narrative: Pt is alert and oriented; behavior is calm, cooperative; dressed in casual attire with hair pulled back and adequate hygiene, uses a walker; mood is described as ok affect congruent; eye contact appropriate; Speech is normal rate, volume and prosody and not pressured; no psychomotor agitation/retardation present; thought process is organized and goal directed; Thought content is on stabilizing, dealing with malignancy, tx; otherwise pertinent to relevant topics and without any delusional content, paranoid ideations or grandiosity; no SI; no HI. No AVH; Patients insight and judgment are fair. Diagnostics Vital Signs (24Hr): Vital Signs - 24 hr 05/16/22 18:00 Temperature 97.7 F Pulse Rate 78 Respiratory Rate 18 Blood Pressure 133/66 Pulse Oximetry 94 Oxygen Delivery Method Room Air BMI result Body Mass Index 73.6 Labs Results: 05/11/22 21:45 05/17/22 07:50 Labs: Laboratory Results - last 48 hr 05/17/22 05/17/22 07:50 07:50 BUN 15 Creatinine 0.77 Estim Creat Clear Calc 161.5 Estimated GFR > 60 TSH 2.96 [place] 1.01 Imaging Radiology Impressions: ITS Impressions Knee X-Ray 05/16/22 14:58 IMPRESSION: Progressive arthritis in the right knee with moderately severe medial compartment narrowing and genu varum, increased compared to prior. Medications Medications Current Medications Acetaminophen (Acetaminophen 325 Mg Tablet) 650 mg PO Q6H PRN PRN Reason: Headache/Pain Mild Scale (1-3) Last Admin: 05/16/22 20:55 Dose: 650 mg Al Hydroxide/Mg Hydroxide (Magnesium Hydrox/Alum Hydrox 30 Ml Oral.Susp) 30 ml PO Q6H PRN PRN Reason: Heartburn/Nausea Albuterol Sulfate (Albuterol Sulfate 90 Mcg 8 Gm Inhaler) 2 puff INHALE Q4H PRN PRN Reason: shortness of breath or wheezing Last Admin: 05/14/22 13:20 Dose: 2 puff Albuterol/Ipratropium (Albuterol/Iprat 2.5/0.5mg 3 Ml Ampul.Neb) 1.5 ml INHALE Q20M PRN PRN Reason: Shortness of Breath Benztropine Mesylate (Benztropine Mesylate 1 Mg Tablet) 1 mg PO BID [facility] Last Admin: 05/17/22 08:30 Dose: 1 mg Capsaicin (Capsaicin 0.025% Cream 60 Gm Tube) 1 appl TOPICAL TID PRN; Protocol PRN Reason: b/l leg pain Clonidine HCl (Clonidine Hcl 0.2 Mg Tablet) 0.2 mg PO BEDTIME [facility]; Protocol Last Admin: 05/16/22 20:54 Dose: 0.2 mg Cyanocobalamin (Cyanocobalamin (Vitamin B-12) 100 Mcg Tablet) 100 mcg PO DAILY [facility] Last Admin: 05/17/22 08:30 Dose: 100 mcg Ferrous Sulfate (Ferrous Sulfate 324 Mg Tablet.) 324 mg PO DAILY [facility] Last Admin: 05/17/22 08:29 Dose: 324 mg Gabapentin (Gabapentin 300 Mg Capsule) 600 mg PO TID [facility] Last Admin: 05/17/22 08:30 Dose: 600 mg [place] Carbonate ([place] Carbonate 300 Mg Capsule) 600 mg PO BID [facility] Last Admin: 05/17/22 08:30 Dose: 600 mg Loperamide HCl (Loperamide Hcl 2 Mg Capsule) 2 mg PO Q4H PRN PRN Reason: Loose Stool Magnesium Hydroxide (Milk Of Magnesia 30 Ml Oral.Susp) 30 ml PO DAILY PRN PRN Reason: Constipation Nicotine (Nicotine 14 Mg Patch.Td24) 14 mg TRANSDERMA DAILY [facility] Last Admin: 05/17/22 08:29 Dose: 14 mg Nitroglycerin (Nitroglycerin 0.4 Mg Tab.Subl) 0.4 mg SUBLINGUAL Q5MX3 PRN PRN Reason: Chest Pain Olanzapine (Olanzapine 10 Mg Tablet) 10 mg PO BEDTIME [facility] Last Admin: 05/16/22 20:54 Dose: 10 mg Omeprazole (Omeprazole 20 Mg Capsule.) 20 mg PO DAILY@0630 [facility] Last Admin: 05/17/22 04:54 Dose: 20 mg Oxcarbazepine (Oxcarbazepine 150 Mg Tablet) 150 mg PO BID [facility] Last Admin: 05/17/22 08:30 Dose: 150 mg Oxycodone HCl (Oxycodone Hcl Immed Release 5 Mg Tablet) 5 mg PO Q4H PRN PRN Reason: severe pain Last Admin: 05/17/22 04:53 Dose: 5 mg Ropinirole HCl (Ropinirole Hcl 0.5 Mg Tablet) 0.5 mg PO BEDTIME [facility] Last Admin: 05/16/22 20:55 Dose: 0.5 mg Sertraline HCl (Sertraline Hcl 50 Mg Tablet) 50 mg PO DAILY [facility] Last Admin: 05/17/22 08:30 Dose: 50 mg Tiotropium [place] (Tiotropium [place] 18 Mcg Cap.W.Dev) 1 puff INHALE DAILY [facility] Last Admin: 05/17/22 09:22 Dose: 1 puff Trazodone HCl (Trazodone Hcl 100 Mg Tablet) 200 mg PO BEDTIME [facility] Last Admin: 05/16/22 20:55 Dose: 200 mg Trazodone HCl (Trazodone Hcl 50 Mg Tablet) 50 mg PO BEDTIME PRN PRN Reason: Insomnia Valacyclovir HCl (Valacyclovir Hcl 1,000 Mg Tablet) 1,000 mg PO BID [facility] Last Admin: 05/17/22 08:30 Dose: 1,000 mg Allergies Allergies Allergy/AdvReac Type Severity Reaction Status Date / Time aspirin [Aspirin] Allergy Severe HIVES,THROAT Verified 10/13/21 04:51 SWELLS bee pollen [BEE STINGS] Allergy Severe ANAPHYLAXIS Verified 10/13/21 04:51 diphenhydramine Allergy Severe hives, Verified 10/13/21 04:51 [From BENADRYL ALLERGY] throat swells Penicillins [PCN] Allergy Severe HIVES Verified 10/13/21 04:51 THROAT SWELLS Sulfa (Sulfonamide Allergy Intermediate HIVES Verified 10/13/21 04:51 Antibiotics) [SULFA (SULFONAMIDE ANTIBIOTICS)] tramadol [TRAMADOL] Allergy Intermediate ITCHING Verified 10/13/21 04:51 latex [LATEX] Allergy Unknown UNKNOWN Verified 10/13/21 04:51 penicillin G Allergy Unknown Unknown Verified 10/13/21 04:51 levofloxacin [From Levaquin] Allergy Hives Verified 10/13/21 04:51 hydroxyzine AdvReac Severe restless Verified 03/30/22 19:57 legs seafood AdvReac Stomach Verified 03/17/22 12:07 Upset bee stings Allergy Unknown Unknown Uncoded 10/13/21 04:51 DairyCare Allergy Unknown Unknown Uncoded 10/13/21 04:51 sulfa drugs Allergy Unknown Unknown Uncoded 10/13/21 04:51 Assessment & Plan Assessment & Plan (1) Bipolar I disorder: Status: Acute Code(s): F31.9 - Bipolar disorder, unspecified (2) PTSD (post-traumatic stress disorder): Status: Acute Code(s): F43.10 - Post-traumatic stress disorder, unspecified (3) Borderline personality disorder: Status: Acute Code(s): F60.3 - Borderline personality disorder (4) Cocaine use disorder: Status: Acute Code(s): F14.10 - Cocaine abuse, uncomplicated (5) Neoplasm of parotid gland: Status: Acute Code(s): D49.0 - Neoplasm of unspecified behavior of digestive system (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 Patient was recently discharged from on 04/20/22. Patient reports that she has not been taking her medications for over week; she also says she has not slept hardly at all for about a week. She denies however relapsing with any drugs including cocaine or fentanyl, although her UDS is positive for both. Patient said she would like to get back on her medications. -remains ambivalent about surgery; she wants it but is very anxious about it 05/14 stabilizing 05/15 SI has resolved; no AH; continue current treatment regimen 05/16 depression resolved; no SI HI or AVH. Complains of right knee pain likely from recent fall; send for x-ray 05/17 Remains stable, no SI, depression resolved, no AH. Patient complains of right knee pain; complains of intermittent dizziness which resolved on its own. Plan: CV Q 15 minute checks CPAP and one-to-one while on CPAP Restart home medications Increase gabapentin to 600mg TID (up from 400mg) RT Knee XRay: no fracture, no effusion I spent minutes with the patient and/or on the patient floor today, greater than?50% of which was spent counseling/coordinating care. Patient educated on: diagnosis and medical condition Reason for contiued inpatient stay Substantial Risk for: stable for discharge
[2022-05-17] MEDS: Acetaminophen 325 MG TABLET 650 MG PO (12:48)
[2022-05-17] MEDS: Albuterol Sulfate 90 MCG 8 GM INHALER 2 PUFF INHALE (13:24)
[2022-05-17 16:35] VITALS: BP 133/66; PULSE 79; RESP 16; TEMP 36.8; O2SAT 93
[2022-05-17] MEDS: Acetaminophen 325 MG TABLET 1000 MG PO (17:30)
[2022-05-17 20:35] VITALS: BP 130/71; PULSE 87; RESP 14; TEMP 30.5; O2SAT 93
[2022-05-17] MEDS: traZODone HCL 100 MG TABLET 200 MG PO (20:36)
[2022-05-17] MEDS: rOPINIRole HCL 0.5 MG TABLET PO (20:37)
[2022-05-17] MEDS: cloNIDine HCL 0.2 MG TABLET PO (20:37)
[2022-05-17] MEDS: traZODone HCL 50 MG TABLET PO (20:37)
[2022-05-17] MEDS: OLANZapine 10 MG TABLET PO (20:37)
[2022-05-18] MEDS: Acetaminophen 325 MG TABLET 1000 MG PO ×2 (01:27→08:33)
[2022-05-18] MEDS: Omeprazole 20 MG CAPSULE.DR PO (04:00)
[2022-05-18] MEDS: Capsaicin 0.025% Cream 60 GM TUBE 1 APPL TOPICAL (04:00)
[2022-05-18 06:00] VITALS: BP 126/68; PULSE 76; RESP 18; TEMP 36.3; O2SAT 93
[2022-05-18] MEDS: Nicotine 14 MG PATCH.TD24 TRANSDERMA (08:32)
[2022-05-18] MEDS: Lithium Carbonate 300 MG CAPSULE 600 MG PO (08:36)
[2022-05-18] MEDS: Cyanocobalamin (Vitamin B-12) 100 MCG TABLET PO (08:36)
[2022-05-18] MEDS: Ferrous Sulfate 324 MG TABLET.DR PO (08:36)
[2022-05-18] MEDS: Gabapentin 300 MG CAPSULE 600 MG PO (08:36)
[2022-05-18] MEDS: Benztropine Mesylate 1 MG TABLET PO (08:37)
[2022-05-18] MEDS: OXcarbazepine 150 MG TABLET PO (08:37)
[2022-05-18] MEDS: valACYclovir HCL 1,000 MG TABLET 1000 MG PO (08:37)
[2022-05-18] MEDS: Sertraline HCL 50 MG TABLET PO (08:37)
--- NOTE | 2022-05-18 12:36 | PM.PSYDC ---
DS: Providers Provider Date of Service: 05/18/22 Date of admission: 05/12/22 20:55 Date of discharge: 05/18/22 Primary care physician: Cori Hooker MD Attending physician on admission: Lamont Damon Attending physician on discharge: Lamont Damon DS: Diagnosis Discharge Diagnosis (1) Bipolar I disorder: Status: Acute (2) PTSD (post-traumatic stress disorder): Status: Acute (3) Borderline personality disorder: Status: Acute (4) Cocaine use disorder: Status: Acute (5) Neoplasm of parotid gland: Status: Acute (6) Pseudoseizures: Status: Acute (7) FABIOLA (obstructive sleep apnea): Status: Acute (8) Asthma-COPD overlap syndrome: Status: Acute DS: Medications Discharge Medications Home Medications: Home Medications Medication Instructions Recorded Confirmed benztropine 1 mg tablet 1 tab PO BID 05/11/22 05/11/22 clonidine HCl 0.2 mg tablet 1 tab BEDTIME 05/11/22 05/11/22 cyanocobalamin (vitamin B-12) 100 1 tab PO DAILY 05/11/22 05/11/22 mcg tablet ferrous sulfate 324 mg (65 mg 1 tab PO DAILY 05/11/22 05/11/22 iron) tablet,delayed release lithium carbonate 600 mg capsule 1 cap PO BID 05/11/22 05/11/22 olanzapine 10 mg tablet 1 tab PO BEDTIME 05/11/22 05/11/22 omeprazole 20 mg capsule,delayed 1 cap PO QAM 05/11/22 05/11/22 release oxcarbazepine 150 mg tablet 1 tab PO BID 05/11/22 05/11/22 ropinirole 0.5 mg tablet 1 tab PO BEDTIME 05/11/22 05/11/22 sertraline 50 mg tablet 1 tab PO DAILY 05/11/22 05/11/22 tiotropium bromide 18 mcg capsule 1 cap inhalation DAILY 05/11/22 05/11/22 with inhalation device (Spiriva with HandiHaler) trazodone 100 mg tablet 2 tab PO BEDTIME 05/11/22 05/11/22 valacyclovir 1 gram tablet 1 tab PO BID 05/11/22 05/11/22 Previous Rx's Medication Instructions Recorded albuterol sulfate 90 mcg/actuation 2 puff inhalation Q4-6H PRN 04/20/22 aerosol inhaler shortness of breath or wheezing 30 days #1 inhaler nitroglycerin 0.4 mg sublingual 0.4 mg sublingual Q5MX3 PRN Chest 04/20/22 tablet (Nitrostat) Pain 30 days #10 tabs capsaicin 0.025 % topical cream 1 appl topical TID PRN b/l leg 05/18/22 pain #0 grams gabapentin 300 mg capsule 600 mg PO TID #0 caps 05/18/22 Mental Status Exam Mental Status Exam Narrative: Pt is alert and oriented; behavior is calm, cooperative; dressed in casual attire with hair pulled back and adequate hygiene, uses a walker; mood is described as good affect congruent; eye contact appropriate; Speech is normal rate, volume and prosody and not pressured; no psychomotor agitation/retardation present; thought process is organized and goal directed; Thought content is discharge, dealing with malignancy; otherwise pertinent to relevant topics and without any delusional content, paranoid ideations or grandiosity; no SI; no HI. No AVH; Patients insight and judgment are fair. Data Data Completed and Pending Completed studies during hospitalization [Text1]: 05/11/22 05/11/22 05/11/22 19:59 19:59 20:00 WBC RBC Hgb Hct MCV MCH MCHC RDW Plt Count MPV Immature Gran % (Auto) Neut % (Auto) Lymph % (Auto) [place] % (Auto) Eos % (Auto) Baso % (Auto) Lymph # (Auto) [place] # (Auto) Eos # (Auto) Baso # (Auto) Abs Immat Gran (auto) Absolute Neuts (auto) Absolute Nucleated RBC Nucleated RBC % (auto) Sodium Potassium Chloride Carbon Dioxide Anion Gap BUN Creatinine Estim Creat Clear Calc Estimated GFR Random Glucose Fasting Glucose Estimat Average Glucose Hemoglobin A1c % Calcium Total Bilirubin AST ALT Alkaline Phosphatase Total Protein Albumin Triglycerides Cholesterol LDL Cholesterol, Calc HDL Cholesterol Vitamin B12 Folate TSH Urine Color YELLOW Urine Appearance CLOUDY Urine pH 5.5 Ur Specific [place] 1.025 Urine Protein NEG Urine Glucose (UA) NEG Urine Ketones NEG Urine Blood NEG Urine Nitrite NEG Ur Leukocyte Esterase NEG Salicylates Urine Opiates Screen Not Detected Urine Fentanyl Screen POSITIVE H Acetaminophen Ur Barbiturates Screen Not Detected Ur Phencyclidine Scrn Not Detected Ur Amphetamines Screen Not Detected U Benzodiazepines Scrn Not Detected [place] Urine Cocaine Screen POSITIVE H U Marijuana (THC) Screen Not Detected Ethyl Alcohol COVID-19 (ENDY) Negative COVID-19 Clin Com See Note 05/11/22 05/11/22 05/11/22 21:45 21:45 21:45 WBC 6.8 RBC 4.55 Hgb 13.5 Hct 42.2 MCV 92.7 MCH 29.7 MCHC 32.0 RDW 12.6 Plt Count 254 MPV 9.8 Immature Gran % (Auto) 0.1 Neut % (Auto) 52.8 Lymph % (Auto) 39.3 [place] % (Auto) 5.3 Eos % (Auto) 1.3 Baso % (Auto) 1.2 Lymph # (Auto) 2.7 [place] # (Auto) 0.4 Eos # (Auto) 0.1 Baso # (Auto) 0.1 Abs Immat Gran (auto) 0.01 Absolute Neuts (auto) 3.6 Absolute Nucleated RBC 0.000 Nucleated RBC % (auto) 0.0 Sodium 141 Potassium 3.7 Chloride 107 Carbon Dioxide 25 Anion Gap 13 BUN 9 Creatinine 0.86 Estim Creat Clear Calc 97.8 Estimated GFR > 60 Random Glucose 131 H Fasting Glucose Estimat Average Glucose Hemoglobin A1c % Calcium 9.1 D Total Bilirubin AST ALT Alkaline Phosphatase Total Protein Albumin Triglycerides Cholesterol LDL Cholesterol, Calc HDL Cholesterol Vitamin B12 Folate TSH Urine Color Urine Appearance Urine pH Ur Specific [place] Urine Protein Urine Glucose (UA) Urine Ketones Urine Blood Urine Nitrite Ur Leukocyte Esterase Salicylates Urine Opiates Screen Urine Fentanyl Screen Acetaminophen Ur Barbiturates Screen Ur Phencyclidine Scrn Ur Amphetamines Screen U Benzodiazepines Scrn [place] 0.17 L Urine Cocaine Screen U Marijuana (THC) Screen Ethyl Alcohol COVID-19 (ENDY) COVID-19 Clin Com 05/11/22 05/13/22 05/13/22 21:45 08:01 08:01 WBC RBC Hgb Hct MCV MCH MCHC RDW Plt Count MPV Immature Gran % (Auto) Neut % (Auto) Lymph % (Auto) [place] % (Auto) Eos % (Auto) Baso % (Auto) Lymph # (Auto) [place] # (Auto) Eos # (Auto) Baso # (Auto) Abs Immat Gran (auto) Absolute Neuts (auto) Absolute Nucleated RBC Nucleated RBC % (auto) Sodium 141 Potassium 4.3 Chloride 105 Carbon Dioxide 28 Anion Gap 12 BUN 11 Creatinine 0.68 Estim Creat Clear Calc 182.8 Estimated GFR > 60 Random Glucose Fasting Glucose 91 Estimat Average Glucose 108 Hemoglobin A1c % 5.4 Calcium 9.3 Total Bilirubin 0.2 AST 13 ALT 20 Alkaline Phosphatase 61 Total Protein 5.8 L Albumin 3.7 Triglycerides 161 Cholesterol 147 D LDL Cholesterol, Calc 77 HDL Cholesterol 38 D Vitamin B12 Folate TSH Urine Color Urine Appearance Urine pH Ur Specific [place] Urine Protein Urine Glucose (UA) Urine Ketones Urine Blood Urine Nitrite Ur Leukocyte Esterase Salicylates < 5.0 L Urine Opiates Screen Urine Fentanyl Screen Acetaminophen < 1 Ur Barbiturates Screen Ur Phencyclidine Scrn Ur Amphetamines Screen U Benzodiazepines Scrn [place] Urine Cocaine Screen U Marijuana (THC) Screen Ethyl Alcohol < 10 COVID-19 (ENDY) COVID-19 IES Com 05/13/22 05/17/22 05/17/22 08:01 07:50 07:50 WBC RBC Hgb Hct MCV MCH MCHC RDW Plt Count MPV Immature Gran % (Auto) Neut % (Auto) Lymph % (Auto) [place] % (Auto) Eos % (Auto) Baso % (Auto) Lymph # (Auto) [place] # (Auto) Eos # (Auto) Baso # (Auto) Abs Immat Gran (auto) Absolute Neuts (auto) Absolute Nucleated RBC Nucleated RBC % (auto) Sodium Potassium Chloride Carbon Dioxide Anion Gap BUN 15 Creatinine 0.77 Estim Creat Clear Calc 161.5 Estimated GFR > 60 Random Glucose Fasting Glucose Estimat Average Glucose Hemoglobin A1c % Calcium Total Bilirubin AST ALT Alkaline Phosphatase Total Protein Albumin Triglycerides Cholesterol LDL Cholesterol, Calc HDL Cholesterol Vitamin B12 372 Folate 9.0 TSH 2.96 Urine Color Urine Appearance Urine pH Ur Specific [place] Urine Protein Urine Glucose (UA) Urine Ketones Urine Blood Urine Nitrite Ur Leukocyte Esterase Salicylates Urine Opiates Screen Urine Fentanyl Screen Acetaminophen Ur Barbiturates Screen Ur Phencyclidine Scrn Ur Amphetamines Screen U Benzodiazepines Scrn [place] 1.01 Urine Cocaine Screen U Marijuana (THC) Screen Ethyl Alcohol COVID-19 (ENDY) COVID-19 Clin Com Imaging Diagnostic Imaging Impressions Knee X-Ray 05/16/22 14:58 IMPRESSION: Progressive arthritis in the right knee with moderately severe medial compartment narrowing and genu varum, increased compared to prior. DS: Summary Hospital Course Hospital Course: HPI: 52 yo female, with hx of bipolar disorder, numerous admissions,? 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 Patient was recently discharged from on 04/20/22. Patient reports that she has not been taking her medications for over week; she also says she has not slept hardly at all for about a week.? She denies however relapsing with any drugs including cocaine or fentanyl, although her UDS is positive for both.? Patient said she would like to get back on her medications. -remains ambivalent about surgery; she wants it but is very anxious about it Hospital course: On admission, patient stabilized. Initially she had some SI and AH but both soon resolved. Patient had a few bouts of feeling dizzy but this to resolved. Patient complained of right knee pain from which she thinks was probably a recent fall however x-ray was unremarkable. Her gabapentin was increased to 600 mg t.i.d. Patient soon return to baseline; she remained in good mood, with bright affect, smiling and joking with staff, all SI, AH remaining resolved. Patient tolerated her medications well. There was 1 time she got into a verbal altercation with another patient however both were able to be redirected; otherwise she was appropriate with peers and staff. Patient returned to baseline and said she wanted to discharge, feeling safe, back to her regular self. Senior Compensation Consultant and social services technician discussed risks of relapse and risks of not following up with aftercare as has been her pattern for years, however patient remains adamant that she will be fine and will follow up on her own (if she wants to). Senior Compensation Consultant and social services technician discussed her feelings about dealing with surgery and patient said while she mostly thinks she wants the surgery, she remains ambivalent and anxious about it. Social work and patient understands that her [facility] career education teacher, Farnaz, plans to follow-up with patient and help get to her appointment for pre surgery consult. Patient told radio script writer that she has all of her medications and does not currently need refills since she did not actually take her medications since last picking him up from the pharmacy. She continues to deny any SI, HI or AVH and gave before number for where she can be reached. She is calm, cooperative and friendly, organized and speech behavior. As mentioned numerous times, patient remains vulnerable to both relapse and dysregulation as she chronically struggles with polysubstance abuse and discontinuing her medications and poor follow-up; however, this is a chronic struggle for patient who has been living on the streets and fending for herself since she was about 13 years old and will not change with longer stay on the unit. Patient herself shares that she is typically most comfortable on the streets, which corroborates with the years of consistently declining actual offers for housing. Patient is not in imminent risk for harm to self or others. She has a long history of being able to get her needs meet in the community, even while homeless, and she has an equally long history of reaching out for help when starting to feel unsafe and needing additional support.? Patient's request for discharge honored Time spent discussing smoking cessation with patient: 3 to 10 minutes Status at Discharge Functional status at discharge: uses cane/walker Overall status at discharge: patient is back to baseline Time Spent with Patient Time attestation: Total time spent providing and/or coordinating discharge services: Time spent: Greater than 30 minutes Discharge Plan Discharge Patient Disposition: Home, Self-Care Discharge Diagnosis: bipolar disorder type I, recurrent, severe most recent episode depressed, in full remission Referrals: Community Health Worker/Personal Care Assistant: Farnaz Mcqueen [Other] - 1 Week [facility] [Other] - 05/19/22 2:30 pm (Please arrive @ 2:15PM for the surgery consult appointment) Primary Care Physician: Mike Malone MD [Other] - 1 Week (CALLED FOR D/C APPT. LEFT MESSAGE EXPECTING A CALL BACK) Discharge Medications: New gabapentin 300 mg Capsule 600 mg PO TID Qty: 0 0RF capsaicin 0.025 % Cream 1 appl topical TID PRN (Reason: b/l leg pain) Qty: 0 0RF Protocol: Apply to: Apply to: b/l leg Continued nitroglycerin [Nitrostat] 0.4 mg Tablet, Sublingual 0.4 mg sublingual Q5MX3 PRN (Reason: Chest Pain) 30 Days Qty: 10 0RF albuterol sulfate 90 mcg/actuation HFA aerosol inhaler 2 puff inhalation Q4-6H PRN (Reason: shortness of breath or wheezing) 30 Days Qty: 1 0RF oxcarbazepine 150 mg tablet 1 tab PO BID cyanocobalamin (vitamin B-12) 100 mcg tablet 1 tab PO DAILY valacyclovir 1 gram tablet 1 tab PO BID olanzapine 10 mg tablet 1 tab PO BEDTIME clonidine HCl 0.2 mg tablet 1 tab BEDTIME trazodone 100 mg tablet 2 tab PO BEDTIME lithium carbonate 600 mg capsule 1 cap PO BID ropinirole 0.5 mg tablet 1 tab PO BEDTIME benztropine 1 mg tablet 1 tab PO BID omeprazole 20 mg capsule,delayed release(DR/EC) 1 cap PO QAM sertraline 50 mg tablet 1 tab PO DAILY Spiriva with HandiHaler 18 mcg capsule, w/inhalation device 1 cap inhalation DAILY ferrous sulfate 324 mg (65 mg iron) tablet,delayed release (DR/EC) 1 tab PO DAILY Discontinued gabapentin 400 mg capsule 1 cap PO TID Discharge Orders: Discharge Order (Routine); Ordered 05/18/22 Ordered By: Lamont Damon Diet: Regular diet Activity on Discharge: As tolerated Stand Alone Forms: Patient Portal Discharge page Care Plan Goals: Maintain mood and safe behaviors Take medications as prescribed Continue to pursue sobriety Practice coping skills Continue with outpatient providers and reach out to them as needed Health Concerns: Mood stability and behaviors Sobriety Cancer of Parotid Gland COPD Chronic Leg pain Plan of Treatment: Follow up with your PCP, psychiatric provider and other outpatient providers regarding above concerns Take medications as prescribed Assessment: Risk assessment at time of discharge:? Patient was interviewed prior to discharge and found to be fully oriented and without any SI or HI. Patient has insight and demonstrates good judgment in terms of wanting to pursue treatment. Patient is not in imminent risk of harm to self or others and has a safety plan that includes presenting to the closest ER or calling 911 if feeling unsafe.? Patient has been observed closely by nursing and unit staff throughout admission; patient has not engaged in any behaviors that suggest dangerousness to self or others and has demonstrated appropriate behaviors and impulse control
--- NOTE | 2022-05-18 13:53 | PC.NURSE ---
Patient alert and oriented x4. Expresses readiness for discharge. Verbalize understanding of all instructions. Medications reviewed. F/U appointments in place. Medications retrieved from pharmacy. All patient belongings accounted for. Patient escorted off unit my [facility] to [facility] for transportation.
== END 2022-05-18 13:25 | disposition home or self-care (01) | DRG 753 ==
LOC: HO.ED 20:01 → HO.PM5 05-12 21:04
PROVIDERS: Admitting Provider Social Worker; Emergency Provider Emergency Medicine; PCP Family Medicine; Visit Provider Psychiatry & Neurology Psychiatry
DX: F31.9 Bipolar disorder, unspecified (principal); R45.851 Suicidal ideations; F44.5 Conversion disorder with seizures or convulsions; G47.33 Obstructive sleep apnea (adult) (pediatric); J44.9 Chronic obstructive pulmonary disease, unspecified; F14.10 Cocaine abuse, uncomplicated; F60.3 Borderline personality disorder; F17.210 Nicotine dependence, cigarettes, uncomplicated; Z20.822 Contact with and (suspected) exposure to COVID-19; F43.10 Post-traumatic stress disorder, unspecified; Z71.6 Tobacco abuse counseling; Z59.02 Unsheltered homelessness; Z91.040 Latex allergy status; Z91.030 Bee allergy status; Z91.013 Allergy to seafood; Z88.0 Allergy status to penicillin; Z88.2 Allergy status to sulfonamides; Z88.8 Allergy status to other drugs, medicaments and biological substances; Z79.899 Other long term (current) drug therapy
CPT/HCPCS: 36415; 73564; 80048; 80053; 80061; 80143; 80178; 80179; 80307; 81003; 82077; 82565; 82607; 82746; 83036; 84443; 84520; 85025; 87635; 93005; 99285

== ENCOUNTER 2022-05-30 12:28 | Inpatient (IN) | payer MEDICAID, OTHER, SELFPAY ==
--- NOTE | ~2022-05-30 | XR_ITS ---
EXAMINATION: XR CHEST CLINICAL INFORMATION: Shortness of breath. History of COPD. COMPARISON: Chest done on 04/19/2022. TECHNIQUE: 2 views of the chest were obtained. FINDINGS: Hyperinflated lung field is present bilaterally with prominent bronchovascular markings, appear unchanged since 04/19/2022. No superimposed dense airspace consolidation. Cardiac mediastinal silhouette is within normal limit. No evidence of any pleural or pericardial effusion. XR/XR chest 2V IMPRESSION: No radiographic evidence of acute cardiopulmonary disease. No significant change since 04/19/2022.
--- NOTE | 2022-05-30 12:48 | ECG_ITS ---
Test Reason : CRISIS Blood Pressure : / mmHG Vent. Rate : 081 BPM Atrial Rate : 081 BPM P-R Int : 142 ms QRS Dur : 084 ms QT Int : 404 ms P-R-T Axes : 023 010 028 degrees QTc Int : 469 ms Normal sinus rhythm Normal ECG When compared with ECG of 12-MAY-2022 19:18, No significant change was found Referred By: Monisha Ricketts Electronically Signed By:VAIBHAV KILLIAN MD
[2022-05-30 13:11] VITALS: BP 120/91; PULSE 94; RESP 20; TEMP 35.8; O2SAT 94; BMI 33.3
--- NOTE | 2022-05-30 13:11 | ED_ITS ---
HPI - Psych General Chief Complaint: Psychiatric Symptoms <LASHONDA Chan - Last Filed: 05/30/22 15:15> Stated Complaint: PSYCH EPISODE,SI W/PLAN TO JUMP OFF BRIDGE PER EMS <LASHONDA Chan - Last Filed: 05/30/22 15:15> Time Seen by Provider: 05/30/22 12:48 <LASHONDA Chan - Last Filed: 05/30/22 15:15> Source: patient, EMS and old records reviewed <LASHONDA Chan - Last Filed: 05/30/22 15:15> Mode of arrival: EMS <LASHONDA Chan - Last Filed: 05/30/22 15:15> Limitations: no limitations <LASHONDA Chan - Last Filed: 05/30/22 15:15> History of Present Illness HPI Narrative: 52-year-old female with a history of bipolar disorder, PTSD, COPD/asthma, FABIOLA, polysubstance abuse, active smoker, recent diagnosis of parotid gland neoplasm who presents to the ER with suicidal ideation with plan to jump off a bridge. She was found on the streets after smoking crack cocaine. She says she wants to kill herself. She has not been taking her medications, choosing to smoke do drugs over taking her medications which she fully admits to. She has also be on Librium and has been admittedly noncompliant. She has had numerous inpatient admissions here, last 05/13-05/18. <LASHONDA Chan - Last Filed: 05/30/22 15:15> MD complaint: suicidal ideation, feels depressed and substance abuse <LASHONDA Chan - Last Filed: 05/30/22 15:15> Onset (ago): unknown <LASHONDA Chan - Last Filed: 05/30/22 15:15> Duration: constant <LASHONDA Chan - Last Filed: 05/30/22 15:15> History of same: Yes <LASHONDA Chan - Last Filed: 05/30/22 15:15> Relieving factors: medication <LSAHONDA Chan - Last Filed: 05/30/22 15:15> Exacerbating factors: drug use <LASHONDA Chan - Last Filed: 05/30/22 15:15> Context: not taking psychiatric medications and significant life stressor <LASHONDA Chan - Last Filed: 05/30/22 15:15> Associated psychiatric symptoms: depression and suicidal ideation <LASHONDA Chan - Last Filed: 05/30/22 15:15> Associated symptoms: shortness of breath <LASHONDA Chan - Last Filed: 05/30/22 15:15> If self harm: admits thoughts of self harm and has plan <LASHONDA Chan - Last Filed: 05/30/22 15:15> Details of plan: to jump off of a bridge <LASHONDA Chan - Last Filed: 05/30/22 15:15> Related Data Home Medications: Home Medications Medication Instructions Recorded Confirmed tiotropium bromide 18 mcg capsule 1 cap inhalation DAILY 05/11/22 05/30/22 with inhalation device (Spiriva with HandiHaler) Previous Rx's Medication Instructions Recorded albuterol sulfate 90 mcg/actuation 2 puff inhalation Q4-6H PRN 04/20/22 aerosol inhaler shortness of breath or wheezing 30 days #1 inhaler benztropine 1 mg tablet 1 mg PO BID 30 days #60 tabs 05/18/22 capsaicin 0.025 % topical cream 1 appl topical TID PRN b/l leg 05/18/22 pain #0 grams clonidine HCl 0.2 mg tablet 0.2 mg PO BEDTIME 30 days #30 tabs 05/18/22 cyanocobalamin (vitamin B-12) 100 100 mcg PO DAILY 30 days #30 tabs 05/18/22 mcg tablet ferrous sulfate 324 mg (65 mg 324 mg PO DAILY 30 days #30 tabs 05/18/22 iron) tablet,delayed release gabapentin 600 mg tablet 600 mg PO TID 30 days #90 tabs 05/18/22 lithium carbonate 600 mg capsule 600 mg PO BID 30 days #60 caps 05/18/22 nitroglycerin 0.4 mg sublingual 0.4 mg sublingual [id number] PRN Chest 05/18/22 tablet (Nitrostat) Pain 30 days #10 tabs olanzapine 10 mg tablet 10 mg PO BEDTIME 30 days #30 tabs 05/18/22 omeprazole 20 mg capsule,delayed 20 mg PO QAM 30 days #30 caps 05/18/22 release oxcarbazepine 150 mg tablet 150 mg PO BID 30 days #60 tabs 05/18/22 ropinirole 0.5 mg tablet 0.5 mg PO BEDTIME 30 days #30 tabs 05/18/22 sertraline 50 mg tablet 50 mg PO DAILY 30 days #30 tabs 05/18/22 trazodone 100 mg tablet 200 mg PO BEDTIME PRN insomnia 30 05/18/22 days #60 tabs valacyclovir 1 gram tablet 1,000 mg PO BID 30 days #60 tabs 05/18/22 <LASHONDA Chan - Last Filed: 05/30/22 15:15> Allergies/Adverse Reactions: Allergies Allergy/AdvReac Type Severity Reaction Status Date / Time aspirin [Aspirin] Allergy Severe HIVES,THROAT Verified 10/13/21 04:51 SWELLS bee pollen [BEE STINGS] Allergy Severe ANAPHYLAXIS Verified 10/13/21 04:51 diphenhydramine Allergy Severe hives, Verified 10/13/21 04:51 [From BENADRYL ALLERGY] throat swells Penicillins [PCN] Allergy Severe HIVES Verified 10/13/21 04:51 THROAT SWELLS Sulfa (Sulfonamide Allergy Intermediate HIVES Verified 10/13/21 04:51 Antibiotics) [SULFA (SULFONAMIDE ANTIBIOTICS)] tramadol [TRAMADOL] Allergy Intermediate ITCHING Verified 10/13/21 04:51 latex [LATEX] Allergy Unknown UNKNOWN Verified 10/13/21 04:51 penicillin G Allergy Unknown Unknown Verified 10/13/21 04:51 levofloxacin [From Levaquin] Allergy Hives Verified 10/13/21 04:51 hydroxyzine AdvReac Severe restless Verified 01/27/22 19:57 legs seafood AdvReac Stomach Verified 03/17/22 12:07 Upset bee stings Allergy Unknown Unknown Uncoded 10/13/21 04:51 DairyCare Allergy Unknown Unknown Uncoded 10/13/21 04:51 sulfa drugs Allergy Unknown Unknown Uncoded 10/13/21 04:51 <LASHONDA Chan - Last Filed: 05/30/22 15:15> Review of Systems Review of Systems: Constitutional: No Fever, No Chills ENT/Mouth: No sore throat, No Rhinorrhea, No Swallowing Difficulty Eyes: No Eye Pain, No Swelling, No Redness Cardiovascular: No Chest Pain, + SOB, No Orthopnea, No Edema Respiratory: No Cough, No Sputum, No Wheezing, No dyspnea Gastrointestinal: No Nausea, No Vomiting, No Diarrhea, No abdominal Pain Genitourinary: No Dysuria, No Urinary Frequency, No Hematuria Musculoskeletal: No joint pain, No Myalgias Skin: No Skin Lesions, No rash Neuro: No Weakness, No Numbness, No Dizziness, No Headache Psych: + Anxiety/Panic, + Depression, +SI, No HI, No AH, No VH Heme/Lymph: No Bruising, No Lymphadenopathy Endocrine: No Polyuria, No Polydipsia <LASHONDA Chan - Last Filed: 05/30/22 15:15> [facility] Past Medical History Medical History: Medical History Asthma exacerbation in COPD Bipolar disorder Borderline personality disorder Borderline personality disorder COPD (chronic obstructive pulmonary disease) Depression Depression Drug abuse Herpes Intermittent explosive disorder Mass of parotid gland FABIOLA (obstructive sleep apnea) Post traumatic stress disorder (PTSD) PTSD (post-traumatic stress disorder) PTSD (post-traumatic stress disorder) Tobacco use <LASHONDA Chan - Last Filed: 05/30/22 15:15> Surgical History: Surgical History History of ankle surgery History of appendectomy History of back surgery Hx of cholecystectomy <LASHONDA Chan - Last Filed: 05/30/22 15:15> Family History Family History: Family History Mother COPD (chronic obstructive pulmonary disease) <LASHONDA Chan - Last Filed: 05/30/22 15:15> Social History Social History: Social History Household Members: None Household Members Other:: Assisted in [place] Housing: Homeless Housing Other:: Sleeps on the couch at [facility] house Do you presently have visiting nurse or other home services: No Unable to assess alcohol history related to: Unknown Alcohol intake: never Patient Tobacco Use Status: Current everyday Tobacco user Tobacco use type: Cigarette Cigarette Packs Per Day: 0 Cigarettes Per Day: 8 Years Smoked: 20+ e-Cigarette/Vaping Use: Former Use Second Hand Smoke Exposure: No Substance Use Type: Crack/Cocaine Advance Directives: Yes Advance Directives on File: Yes Advance Directives Date on File: 12/24/20 service: No Current occupational status: unemployed and disabled Sexual orientation: Straight/Heterosexual <LASHONDA Chan - Last Filed: 05/30/22 15:15> Physical Exam Vital Signs: Vital Signs: Last Vital Signs Temp 97.1 F 05/30/22 23:40 Pulse 84 05/30/22 23:40 Resp 16 05/30/22 23:40 BP 134/91 H 05/30/22 23:40 Pulse Ox 97 05/30/22 23:40 O2 Del Method 05/30/22 23:40 BMI result Body Mass Index 33.3 <LASHONDA Chan - Last Filed: 05/30/22 15:15> Vital Signs: Last Vital Signs Temp 97.1 F 05/30/22 23:40 Pulse 84 05/30/22 23:40 Resp 16 05/30/22 23:40 BP 134/91 H 05/30/22 23:40 Pulse Ox 97 05/30/22 23:40 O2 Del Method 05/30/22 23:40 BMI result Body Mass Index 33.3 <Yoni Jacob MD - Last Filed: 05/31/22 07:03> Appearance: Alert. Oriented X3. Mild respiratory distress with increased RR, anxious, diaphoretic, involuntary muscle movements Eyes: Pupils equal, round and reactive to light. ENT: Pharynx normal. Neck: Normal inspection. Neck supple. CVS: Normal heart rate and rhythm. Pulses normal. Respiratory: No respiratory distress. Breath sounds coarse throughout without any wheezes or rales. respiratory rate mid 20s, no accessory muscle use Abdomen: Soft and nontender. +BS x4 Skin: Skin warm and dry. Normal skin color. Normal skin turgor. No rashes. Extremities: No lower extremity edema. Neuro/psych: Oriented X 3. No motor deficit. No sensory deficit. CN II-XII intact. anxious, restless, involuntary myoclonic jerking her upper extremities and occasional lower extremities, no clonus. 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 On arrival to the ER she is diaphoretic, tachypneic and anxious. Found on the streets by EMS after using drugs. Will get metabolic workup, U tox alcohol level, chest x-ray, EKG. Suspect her symptoms substance related will give low-dose of Ativan to help calm her down. Will monitor closely. Once medically cleared will have crisis team evaluate her. <LASHONDA Chan - Last Filed: 05/30/22 15:15> Reevaluation(s) Reevaluation #1: Chest x-ray unremarkable. Lab workup is unremarkable. EKG without ischemic changes. Her diaphoresis and shortness of breath have resolved with Ativan and rest. At this time she is medically cleared for BHN evaluation. Consult placed. Physician observation started at 15:11. Patient placed in physician observation because patient is awaiting BHN evaluation for the possible need of inpatient psych admission. At the time observation was started patient's vital signs were stable. Patient is alert and oriented. Neuro exam is non-focal. CV: RRR and lungs are clear. Will continue to monitor. <LASHONDA Chan - Last Filed: 05/30/22 15:15> Reevaluation #2: Physician observation continued: Patient has been refusing placement, BHN still searching <Yoni Jacob MD - Last Filed: 05/31/22 07:03> Time: 07:03 <Yoni Jacob MD - Last Filed: 05/31/22 07:03> MDM - Psych Medical Records Attestation: I reviewed the patient's medical records. <LASHONDA Chan - Last Filed: 05/30/22 15:15> Lab Data Attestation: I reviewed the patient's lab results. <LASHONDA Chan - Last Filed: 05/30/22 15:15> Result diagrams: : 05/30/22 14:16 05/30/22 14:14 <LASHONDA Chan - Last Filed: 05/30/22 15:15> Labs: Lab Results 05/30/22 05/30/22 05/30/22 Range/Units 14:13 14:14 14:14 WBC (4.8-10.8) X10*3/uL RBC (4.20-5.50) X10*6/uL Hgb (12.0-16.0) g/dl Hct (37.0-47.0) % MCV (80.0-98.0) fL MCH (27.0-33.0) pg MCHC (31.0-35.0) g/dl RDW (11.0-16.0) % Plt Count (160-400) X10*3/uL MPV (9.4-12.3) fL Immature Gran % (Auto) (0.0-0.4) % Neut % (Auto) (45-73) % Lymph % (Auto) (20-40) % [place] % (Auto) (2-11) % Eos % (Auto) (0-4) % Baso % (Auto) (0-2) % Lymph # (Auto) (1.2-4.9) X10*3/uL [place] # (Auto) (0.1-1.2) X10*3/uL Eos # (Auto) (0.0-0.4) X10*3/uL Baso # (Auto) (0.0-0.2) X10*3/uL Abs Immat Gran (auto) (0.00-0.03) X10*3/uL Absolute Neuts (auto) (2.0-8.3) x10*3/uL Absolute Nucleated RBC (0.0-0.012) X10*3/uL Nucleated RBC % (auto) (0.0-0.2) /100WBC Sodium 141 (135-145) mmol/L Potassium 4.5 (3.3-5.1) mmol/L Chloride 104 (96-108) mmol/L Carbon Dioxide 29 (22-29) mmol/L Anion Gap 13 (12-20) BUN 12 (9-16) mg/dL Creatinine 0.67 (0.5-1.4) mg/dL Estim Creat Clear Calc 110.5 Estimated GFR > 60 Random Glucose 143 H (60-115) mg/dL Calcium 9.5 (8.4-10.2) mg/dL Magnesium 2.0 (1.6-2.6) mg/dL Total Bilirubin 0.4 (0.0-1.0) mg/dL Direct Bilirubin 0.2 (0.0-0.5) mg/dL AST 12 (5-31) U/L ALT 15 (0-31) U/L Alkaline Phosphatase 78 D (39-117) U/L B-Natriuretic Peptide 40 (<100) pg/mL Total Protein 6.8 (6.5-8.0) g/dL Albumin 4.4 (3.5-5.0) g/dL Urine Color Urine Appearance Urine pH (5.0-8.0) Ur Specific [place] (1.005-1.025) Urine Protein (NEG-TRACE) MG/DL Urine Glucose (UA) (NEG) MG/DL Urine Ketones (NEG) MG/DL Urine Blood (NEG) Urine Nitrite (NEG) Ur Leukocyte Esterase (NEG) Urine Opiates Screen (Not Detect) Urine Fentanyl Screen (Not Detect) Ur Barbiturates Screen (Not Detect) Ur Phencyclidine Scrn (Not Detect) Ur Amphetamines Screen (Not Detect) U Benzodiazepines Scrn (Not Detect) [place] (0.60-1.20) mmol/L Urine Cocaine Screen (Not Detect) U Marijuana (THC) Screen (Not Detect) Ethyl Alcohol < 10 mg/dL COVID-19 (ENDY) Negative (Negative) COVID-19 Clin Com See Note 05/30/22 05/30/22 05/30/22 Range/Units 14:15 14:16 17:56 WBC 6.0 (4.8-10.8) X10*3/uL RBC 4.53 (4.20-5.50) X10*6/uL Hgb 13.5 (12.0-16.0) g/dl Hct 41.8 (37.0-47.0) % MCV 92.3 (80.0-98.0) fL MCH 29.8 (27.0-33.0) pg MCHC 32.3 (31.0-35.0) g/dl RDW 12.9 (11.0-16.0) % Plt Count 337 D (160-400) X10*3/uL MPV 9.7 (9.4-12.3) fL Immature Gran % (Auto) 0.2 (0.0-0.4) % Neut % (Auto) 55.9 (45-73) % Lymph % (Auto) 35.1 (20-40) % [place] % (Auto) 6.6 (2-11) % Eos % (Auto) 1.2 (0-4) % Baso % (Auto) 1.0 (0-2) % Lymph # (Auto) 2.1 (1.2-4.9) X10*3/uL [place] # (Auto) 0.4 (0.1-1.2) X10*3/uL Eos # (Auto) 0.1 (0.0-0.4) X10*3/uL Baso # (Auto) 0.1 (0.0-0.2) X10*3/uL Abs Immat Gran (auto) 0.01 (0.00-0.03) X10*3/uL Absolute Neuts (auto) 3.4 (2.0-8.3) x10*3/uL Absolute Nucleated RBC 0.000 (0.0-0.012) X10*3/uL Nucleated RBC % (auto) 0.0 (0.0-0.2) /100WBC Sodium (135-145) mmol/L Potassium (3.3-5.1) mmol/L Chloride (96-108) mmol/L Carbon Dioxide (22-29) mmol/L Anion Gap (12-20) BUN (9-16) mg/dL Creatinine (0.5-1.4) mg/dL Estim Creat Clear Calc Estimated GFR Random Glucose (60-115) mg/dL Calcium (8.4-10.2) mg/dL Magnesium (1.6-2.6) mg/dL Total Bilirubin (0.0-1.0) mg/dL Direct Bilirubin (0.0-0.5) mg/dL AST (5-31) U/L ALT (0-31) U/L Alkaline Phosphatase (39-117) U/L B-Natriuretic Peptide (<100) pg/mL Total Protein (6.5-8.0) g/dL Albumin (3.5-5.0) g/dL Urine Color YELLOW Urine Appearance CLEAR Urine pH 6.0 (5.0-8.0) Ur Specific [place] 1.020 (1.005-1.025) Urine Protein NEG (NEG-TRACE) MG/DL Urine Glucose (UA) NEG (NEG) MG/DL Urine Ketones NEG (NEG) MG/DL Urine Blood NEG (NEG) Urine Nitrite NEG (NEG) Ur Leukocyte Esterase NEG (NEG) Urine Opiates Screen (Not Detect) Urine Fentanyl Screen (Not Detect) Ur Barbiturates Screen (Not Detect) Ur Phencyclidine Scrn (Not Detect) Ur Amphetamines Screen (Not Detect) U Benzodiazepines Scrn (Not Detect) [place] 0.06 L (0.60-1.20) mmol/L Urine Cocaine Screen (Not Detect) U Marijuana (THC) Screen (Not Detect) Ethyl Alcohol mg/dL COVID-19 (ENDY) (Negative) COVID-19 Clin Com 05/30/22 Range/Units 17:56 WBC (4.8-10.8) X10*3/uL RBC (4.20-5.50) X10*6/uL Hgb (12.0-16.0) g/dl Hct (37.0-47.0) % MCV (80.0-98.0) fL MCH (27.0-33.0) pg MCHC (31.0-35.0) g/dl RDW (11.0-16.0) % Plt Count (160-400) X10*3/uL MPV (9.4-12.3) fL Immature Gran % (Auto) (0.0-0.4) % Neut % (Auto) (45-73) % Lymph % (Auto) (20-40) % [place] % (Auto) (2-11) % Eos % (Auto) (0-4) % Baso % (Auto) (0-2) % Lymph # (Auto) (1.2-4.9) X10*3/uL [place] # (Auto) (0.1-1.2) X10*3/uL Eos # (Auto) (0.0-0.4) X10*3/uL Baso # (Auto) (0.0-0.2) X10*3/uL Abs Immat Gran (auto) (0.00-0.03) X10*3/uL Absolute Neuts (auto) (2.0-8.3) x10*3/uL Absolute Nucleated RBC (0.0-0.012) X10*3/uL Nucleated RBC % (auto) (0.0-0.2) /100WBC Sodium (135-145) mmol/L Potassium (3.3-5.1) mmol/L Chloride (96-108) mmol/L Carbon Dioxide (22-29) mmol/L Anion Gap (12-20) BUN (9-16) mg/dL Creatinine (0.5-1.4) mg/dL Estim Creat Clear Calc Estimated GFR Random Glucose (60-115) mg/dL Calcium (8.4-10.2) mg/dL Magnesium (1.6-2.6) mg/dL Total Bilirubin (0.0-1.0) mg/dL Direct Bilirubin (0.0-0.5) mg/dL AST (5-31) U/L ALT (0-31) U/L Alkaline Phosphatase (39-117) U/L B-Natriuretic Peptide (<100) pg/mL Total Protein (6.5-8.0) g/dL Albumin (3.5-5.0) g/dL Urine Color Urine Appearance Urine pH (5.0-8.0) Ur Specific [place] (1.005-1.025) Urine Protein (NEG-TRACE) MG/DL Urine Glucose (UA) (NEG) MG/DL Urine Ketones (NEG) MG/DL Urine Blood (NEG) Urine Nitrite (NEG) Ur Leukocyte Esterase (NEG) Urine Opiates Screen Not Detected (Not Detect) Urine Fentanyl Screen Not Detected (Not Detect) Ur Barbiturates Screen Not Detected (Not Detect) Ur Phencyclidine Scrn Not Detected (Not Detect) Ur Amphetamines Screen Not Detected (Not Detect) U Benzodiazepines Scrn Not Detected (Not Detect) [place] (0.60-1.20) mmol/L Urine Cocaine Screen POSITIVE H (Not Detect) U Marijuana (THC) Screen Not Detected (Not Detect) Ethyl Alcohol mg/dL COVID-19 (ENDY) (Negative) COVID-19 Clin Com <LASHONDA Chan - Last Filed: 05/30/22 15:15> Lab Results 05/30/22 05/30/22 05/30/22 Range/Units 14:13 14:14 14:14 WBC (4.8-10.8) X10*3/uL RBC (4.20-5.50) X10*6/uL Hgb (12.0-16.0) g/dl Hct (37.0-47.0) % MCV (80.0-98.0) fL MCH (27.0-33.0) pg MCHC (31.0-35.0) g/dl RDW (11.0-16.0) % Plt Count (160-400) X10*3/uL MPV (9.4-12.3) fL Immature Gran % (Auto) (0.0-0.4) % Neut % (Auto) (45-73) % Lymph % (Auto) (20-40) % [place] % (Auto) (2-11) % Eos % (Auto) (0-4) % Baso % (Auto) (0-2) % Lymph # (Auto) (1.2-4.9) X10*3/uL [place] # (Auto) (0.1-1.2) X10*3/uL Eos # (Auto) (0.0-0.4) X10*3/uL Baso # (Auto) (0.0-0.2) X10*3/uL Abs Immat Gran (auto) (0.00-0.03) X10*3/uL Absolute Neuts (auto) (2.0-8.3) x10*3/uL Absolute Nucleated RBC (0.0-0.012) X10*3/uL Nucleated RBC % (auto) (0.0-0.2) /100WBC Sodium 141 (135-145) mmol/L Potassium 4.5 (3.3-5.1) mmol/L Chloride 104 (96-108) mmol/L Carbon Dioxide 29 (22-29) mmol/L Anion Gap 13 (12-20) BUN 12 (9-16) mg/dL Creatinine 0.67 (0.5-1.4) mg/dL Estim Creat Clear Calc 110.5 Estimated GFR > 60 Random Glucose 143 H (60-115) mg/dL Calcium 9.5 (8.4-10.2) mg/dL Magnesium 2.0 (1.6-2.6) mg/dL Total Bilirubin 0.4 (0.0-1.0) mg/dL Direct Bilirubin 0.2 (0.0-0.5) mg/dL AST 12 (5-31) U/L ALT 15 (0-31) U/L Alkaline Phosphatase 78 D (39-117) U/L B-Natriuretic Peptide 40 (<100) pg/mL Total Protein 6.8 (6.5-8.0) g/dL Albumin 4.4 (3.5-5.0) g/dL Urine Color Urine Appearance Urine pH (5.0-8.0) Ur Specific [place] (1.005-1.025) Urine Protein (NEG-TRACE) MG/DL Urine Glucose (UA) (NEG) MG/DL Urine Ketones (NEG) MG/DL Urine Blood (NEG) Urine Nitrite (NEG) Ur Leukocyte Esterase (NEG) Urine Opiates Screen (Not Detect) Urine Fentanyl Screen (Not Detect) Ur Barbiturates Screen (Not Detect) Ur Phencyclidine Scrn (Not Detect) Ur Amphetamines Screen (Not Detect) U Benzodiazepines Scrn (Not Detect) [place] (0.60-1.20) mmol/L Urine Cocaine Screen (Not Detect) U Marijuana (THC) Screen (Not Detect) Ethyl Alcohol < 10 mg/dL COVID-19 (ENDY) Negative (Negative) COVID-19 Clin Com See Note 05/30/22 05/30/22 05/30/22 Range/Units 14:15 14:16 17:56 WBC 6.0 (4.8-10.8) X10*3/uL RBC 4.53 (4.20-5.50) X10*6/uL Hgb 13.5 (12.0-16.0) g/dl Hct 41.8 (37.0-47.0) % MCV 92.3 (80.0-98.0) fL MCH 29.8 (27.0-33.0) pg MCHC 32.3 (31.0-35.0) g/dl RDW 12.9 (11.0-16.0) % Plt Count 337 D (160-400) X10*3/uL MPV 9.7 (9.4-12.3) fL Immature Gran % (Auto) 0.2 (0.0-0.4) % Neut % (Auto) 55.9 (45-73) % Lymph % (Auto) 35.1 (20-40) % [place] % (Auto) 6.6 (2-11) % Eos % (Auto) 1.2 (0-4) % Baso % (Auto) 1.0 (0-2) % Lymph # (Auto) 2.1 (1.2-4.9) X10*3/uL [place] # (Auto) 0.4 (0.1-1.2) X10*3/uL Eos # (Auto) 0.1 (0.0-0.4) X10*3/uL Baso # (Auto) 0.1 (0.0-0.2) X10*3/uL Abs Immat Gran (auto) 0.01 (0.00-0.03) X10*3/uL Absolute Neuts (auto) 3.4 (2.0-8.3) x10*3/uL Absolute Nucleated RBC 0.000 (0.0-0.012) X10*3/uL Nucleated RBC % (auto) 0.0 (0.0-0.2) /100WBC Sodium (135-145) mmol/L Potassium (3.3-5.1) mmol/L Chloride (96-108) mmol/L Carbon Dioxide (22-29) mmol/L Anion Gap (12-20) BUN (9-16) mg/dL Creatinine (0.5-1.4) mg/dL Estim Creat Clear Calc Estimated GFR Random Glucose (60-115) mg/dL Calcium (8.4-10.2) mg/dL Magnesium (1.6-2.6) mg/dL Total Bilirubin (0.0-1.0) mg/dL Direct Bilirubin (0.0-0.5) mg/dL AST (5-31) U/L ALT (0-31) U/L Alkaline Phosphatase (39-117) U/L B-Natriuretic Peptide (<100) pg/mL Total Protein (6.5-8.0) g/dL Albumin (3.5-5.0) g/dL Urine Color YELLOW Urine Appearance CLEAR Urine pH 6.0 (5.0-8.0) Ur Specific [place] 1.020 (1.005-1.025) Urine Protein NEG (NEG-TRACE) MG/DL Urine Glucose (UA) NEG (NEG) MG/DL Urine Ketones NEG (NEG) MG/DL Urine Blood NEG (NEG) Urine Nitrite NEG (NEG) Ur Leukocyte Esterase NEG (NEG) Urine Opiates Screen (Not Detect) Urine Fentanyl Screen (Not Detect) Ur Barbiturates Screen (Not Detect) Ur Phencyclidine Scrn (Not Detect) Ur Amphetamines Screen (Not Detect) U Benzodiazepines Scrn (Not Detect) [place] 0.06 L (0.60-1.20) mmol/L Urine Cocaine Screen (Not Detect) U Marijuana (THC) Screen (Not Detect) Ethyl Alcohol mg/dL COVID-19 (ENDY) (Negative) COVID-19 Clin Com 05/30/22 Range/Units 17:56 WBC (4.8-10.8) X10*3/uL RBC (4.20-5.50) X10*6/uL Hgb (12.0-16.0) g/dl Hct (37.0-47.0) % MCV (80.0-98.0) fL MCH (27.0-33.0) pg MCHC (31.0-35.0) g/dl RDW (11.0-16.0) % Plt Count (160-400) X10*3/uL MPV (9.4-12.3) fL Immature Gran % (Auto) (0.0-0.4) % Neut % (Auto) (45-73) % Lymph % (Auto) (20-40) % [place] % (Auto) (2-11) % Eos % (Auto) (0-4) % Baso % (Auto) (0-2) % Lymph # (Auto) (1.2-4.9) X10*3/uL [place] # (Auto) (0.1-1.2) X10*3/uL Eos # (Auto) (0.0-0.4) X10*3/uL Baso # (Auto) (0.0-0.2) X10*3/uL Abs Immat Gran (auto) (0.00-0.03) X10*3/uL Absolute Neuts (auto) (2.0-8.3) x10*3/uL Absolute Nucleated RBC (0.0-0.012) X10*3/uL Nucleated RBC % (auto) (0.0-0.2) /100WBC Sodium (135-145) mmol/L Potassium (3.3-5.1) mmol/L Chloride (96-108) mmol/L Carbon Dioxide (22-29) mmol/L Anion Gap (12-20) BUN (9-16) mg/dL Creatinine (0.5-1.4) mg/dL Estim Creat Clear Calc Estimated GFR Random Glucose (60-115) mg/dL Calcium (8.4-10.2) mg/dL Magnesium (1.6-2.6) mg/dL Total Bilirubin (0.0-1.0) mg/dL Direct Bilirubin (0.0-0.5) mg/dL AST (5-31) U/L ALT (0-31) U/L Alkaline Phosphatase (39-117) U/L B-Natriuretic Peptide (<100) pg/mL Total Protein (6.5-8.0) g/dL Albumin (3.5-5.0) g/dL Urine Color Urine Appearance Urine pH (5.0-8.0) Ur Specific [place] (1.005-1.025) Urine Protein (NEG-TRACE) MG/DL Urine Glucose (UA) (NEG) MG/DL Urine Ketones (NEG) MG/DL Urine Blood (NEG) Urine Nitrite (NEG) Ur Leukocyte Esterase (NEG) Urine Opiates Screen Not Detected (Not Detect) Urine Fentanyl Screen Not Detected (Not Detect) Ur Barbiturates Screen Not Detected (Not Detect) Ur Phencyclidine Scrn Not Detected (Not Detect) Ur Amphetamines Screen Not Detected (Not Detect) U Benzodiazepines Scrn Not Detected (Not Detect) [place] (0.60-1.20) mmol/L Urine Cocaine Screen POSITIVE H (Not Detect) U Marijuana (THC) Screen Not Detected (Not Detect) Ethyl Alcohol mg/dL COVID-19 (ENDY) (Negative) COVID-19 Clin Com <Yoni Jacob MD - Last Filed: 05/31/22 07:03> ECG Data Attestation: I personally reviewed and interpreted this ECG as follows: <LASHONDA Chan - Last Filed: 05/30/22 15:15> ECG interpretation date: 05/30/22 <LASHONDA Chan - Last Filed: 05/30/22 15:15> ECG interpretation time: 13:51 <LASHONDA Chan - Last Filed: 05/30/22 15:15> Prior ECG tracings: available for review <LASHONDA Chan - Last Filed: 05/30/22 15:15> Interpretation: normal sinus rhythm, ventricular rate 81 beats per minute, normal QTC, normal QRS, no ST segment elevations or depressions. <LASHONDA Chan - Last Filed: 05/30/22 15:15> Discharge Plan Discharge Clinical Impression: Suicidal ideation <LASHONDA Chan - Last Filed: 05/30/22 15:15> Patient Disposition: Still a Patient <LASHONDA Chan - Last Filed: 05/30/22 15:15> Prescriptions: No Action albuterol sulfate 90 mcg/actuation HFA aerosol inhaler 2 puff inhalation Q4-6H PRN (Reason: shortness of breath or wheezing) 30 Days Qty: 1 0RF Spiriva with HandiHaler 18 mcg capsule, w/inhalation device 1 cap inhalation DAILY capsaicin 0.025 % Cream 1 appl topical TID PRN (Reason: b/l leg pain) Qty: 0 0RF Protocol: Apply to: Apply to: b/l leg valacyclovir 1 gram tablet 1,000 mg PO BID 30 Days Qty: 60 0RF ferrous sulfate 324 mg (65 mg iron) tablet,delayed release (DR/EC) 324 mg PO DAILY 30 Days Qty: 30 0RF clonidine HCl 0.2 mg tablet 0.2 mg PO BEDTIME 30 Days Qty: 30 0RF benztropine 1 mg tablet 1 mg PO BID 30 Days Qty: 60 0RF nitroglycerin [Nitrostat] 0.4 mg Tablet, Sublingual 0.4 mg sublingual [id number] PRN (Reason: Chest Pain) 30 Days Qty: 10 0RF olanzapine 10 mg tablet 10 mg PO BEDTIME 30 Days Qty: 30 0RF lithium carbonate 600 mg capsule 600 mg PO BID 30 Days Qty: 60 0RF gabapentin 600 mg tablet 600 mg PO TID 30 Days Qty: 90 0RF oxcarbazepine 150 mg tablet 150 mg PO BID 30 Days Qty: 60 0RF cyanocobalamin (vitamin B-12) 100 mcg tablet 100 mcg PO DAILY 30 Days Qty: 30 0RF trazodone 100 mg tablet 200 mg PO BEDTIME PRN (Reason: insomnia) 30 Days Qty: 60 0RF ropinirole 0.5 mg tablet 0.5 mg PO BEDTIME 30 Days Qty: 30 0RF omeprazole 20 mg capsule,delayed release(DR/EC) 20 mg PO QAM 30 Days Qty: 30 0RF sertraline 50 mg tablet 50 mg PO DAILY 30 Days Qty: 30 0RF <LASHONDA Chan - Last Filed: 05/30/22 15:15>
[2022-05-30] MEDS: LORazepam 1 MG TABLET PO (13:18)
[2022-05-30 13:28] VITALS: BP 140/94; PULSE 92; O2SAT 95
[2022-05-30 14:21] LABS: MANUAL DIFF FLAG NO
[2022-05-30 14:24] LABS: Basophils Absolute Auto 0.1 X10*3/uL (0.0-0.2); Eosinophils Absolute Auto 0.1 X10*3/uL (0.0-0.4); Eosinophils Percent Auto 1.2 % (0-4); Hematocrit 41.8 % (37.0-47.0); Hemoglobin 13.5 g/dl (12.0-16.0); Imm Gran Abs Auto 0.01 X10*3/uL (0.00-0.03); Imm Gran Pct Auto 0.2 % (0.0-0.4); Lymphocytes Absolute Auto 2.1 X10*3/uL (1.2-4.9); Lymphocytes Percent Auto 35.1 % (20-40); Mean Corpuscular HGB Conc 32.3 g/dl (31.0-35.0); Mean Corpuscular Hemoglobin 29.8 pg (27.0-33.0); Mean Corpuscular Volume 92.3 fL (80.0-98.0); Mean Platelet Volume 9.7 fL (9.4-12.3); Monocytes Absolute Auto 0.4 X10*3/uL (0.1-1.2); Monocytes Percent Auto 6.6 % (2-11); Neutrophils Absolute Auto 3.4 x10*3/uL (2.0-8.3); Neutrophils Percent Auto 55.9 % (45-73); Platelet Count 337 X10*3/uL (160-400); Red Blood Count 4.53 X10*6/uL (4.20-5.50); Red Cell Distribution Width 12.9 % (11.0-16.0)
[2022-05-30 14:35] LABS: Lithium 0.06 mmol/L (0.60-1.20)
[2022-05-30 14:43] LABS: Alanine Aminotransferase 15 U/L (0-31); Albumin Level 4.4 g/dL (3.5-5.0); Alkaline Phosphatase 78 U/L (39-117); Anion Gap 13 (12-20); Aspartate Amino Transferase 12 U/L (5-31); Bilirubin Direct 0.2 mg/dL (0.0-0.5); Bilirubin Total 0.4 mg/dL (0.0-1.0); Blood Urea Nitrogen 12 mg/dL (9-16); Calcium 9.5 mg/dL (8.4-10.2); Carbon Dioxide 29 mmol/L (22-29); Chloride 104 mmol/L (96-108); Creatinine Clr Calc Pharmacy 110.5; Estimated Glomerular Filt Rate > 60; Ethanol < 10 mg/dL; Glucose Random 143 mg/dL (60-115); Potassium 4.5 mmol/L (3.3-5.1); Sodium 141 mmol/L (135-145); Total Protein 6.8 g/dL (6.5-8.0)
[2022-05-30 14:43] LABS: COVID-19 Test Negative (Negative)
[2022-05-30 14:46] LABS: B Type Natriuretic Peptide 40 pg/mL (<100)
--- NOTE | 2022-05-30 14:59 | MHC.CARE ---
[facility] smart sheet completed.
[2022-05-30 18:13] LABS: Appearance Urine CLEAR; Color Urine YELLOW; Glucose Urine UA NEG (NEG); Leukocyte Esterase Urine NEG (NEG); Nitrite Urine NEG (NEG); Urine Blood NEG (NEG); Urine Ketones NEG (NEG); Urine Protein NEG (NEG-TRACE)
[2022-05-30] MEDS: Acetaminophen 325 MG TABLET 650 MG PO (18:24)
[2022-05-30 18:28] LABS: Amphetamine Screen Urine Not Detected (Not Detect); Barbiturates, Urine Not Detected (Not Detect); Benzodiazepines Screen Urine Not Detected (Not Detect); Cannabinoid Screen Urine Not Detected (Not Detect); Cocaine Screen Urine POSITIVE (Not Detect); Fentanyl, urine Not Detected (Not Detect); Opiate Screen Urine Not Detected (Not Detect); Phencyclidine Screen Urine Not Detected (Not Detect)
[2022-05-30 19:00] VITALS: BP 149/93; PULSE 82; RESP 20; TEMP 36.1; O2SAT 93
[2022-05-30 23:40] VITALS: BP 134/91; PULSE 84; RESP 16; TEMP 36.2; O2SAT 97
--- NOTE | 2022-05-31 05:47 | PC.NURSE ---
Patient slept through the night, no distress observed/reported, patient was assessed by N, disposition inpatient bed search, medical record faxed to [facility] as requested by their bed search team, no update on bed search so far, medication rec completed/MAR updated, ambulation independent with walker, behavior non concerning, will continue to monitor.
[2022-05-31] MEDS: Acetaminophen 325 MG TABLET 975 MG PO (07:03)
[2022-05-31] MEDS: Omeprazole 20 MG CAPSULE.DR PO (07:03)
[2022-05-31 09:01] VITALS: BP 144/99; PULSE 73; RESP 16; O2SAT 95
[2022-05-31] MEDS: Benztropine Mesylate 1 MG TABLET PO ×2 (09:29→21:55)
[2022-05-31] MEDS: Lithium Carbonate 300 MG CAPSULE 600 MG PO ×2 (09:29→21:55)
[2022-05-31] MEDS: Albuterol Sulfate 90 MCG 8 GM INHALER 2 PUFF INHALE (09:29)
[2022-05-31] MEDS: valACYclovir HCL 1,000 MG TABLET 1000 MG PO ×2 (09:29→21:55)
[2022-05-31] MEDS: Cyanocobalamin (Vitamin B-12) 100 MCG TABLET PO (09:30)
[2022-05-31] MEDS: OXcarbazepine 150 MG TABLET PO ×2 (09:30→21:55)
[2022-05-31] MEDS: Gabapentin 600 MG TABLET PO ×3 (09:30→21:55)
[2022-05-31] MEDS: Ferrous Sulfate 324 MG TABLET.DR PO (09:30)
[2022-05-31] MEDS: Sertraline HCL 50 MG TABLET PO (09:30)
--- NOTE | 2022-05-31 10:44 | PC.NURSE ---
PT AMB OOB WITH WALKER, HAS BEEN CALM AND COOPERATIVE THIS MORNING TOLERATED PO MEDICATIONS AND BREAKFAST
[2022-05-31] MEDS: Loperamide HCl 2 MG CAPSULE PO (12:16)
--- NOTE | 2022-05-31 13:06 | PC.NURSE ---
Pt seen for individual OT intervention on this date. On approach, pt was agitated and angry, screaming at another patient who she stated was staring at her . Pt redirected to her room in the Pod, provided time to express her frustration. Pt then was given materials for her to journal in her room, which pt stated works to relieve her anxiety. Pt appeared calmer at end of individual intervention.
[2022-05-31 14:12] VITALS: BP 139/80; PULSE 78; O2SAT 92
[2022-05-31 16:30] VITALS: BP 132/106; PULSE 72; RESP 14; TEMP 36.6; O2SAT 95
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
[2022-05-31] MEDS: OLANZapine 5 MG TABLET PO (18:33)
[2022-05-31] MEDS: cloNIDine HCL 0.1 MG TABLET PO (18:34)
--- NOTE | 2022-05-31 21:36 | PC.ADMIT ---
PT is a 52 year old female that arrived on this unit at 16:30 via wheelchair from the [facility]. PT admitted as a CV and placed on 5 minute safety checks. PT presented to the ED secondary to suicidal ideation with a plan to jump off of bridge due to recent life stressors including being recently homeless again and being diagnosed with cancer. TOX + for cocaine which patient admits to using on the street. COVID neg, EKG normal sinus rhythm. PT has not been taking any medications for several weeks . PT has a history of bipolar disorder and has been hospitalized multiple times here as well as [facility]. Chronic medical history includes fibromyalgia, arthritis, acute respiratory failure, COPD, asthma, hx of seizures, heart murmur, GERD and lesion of the parotid gland that is not being treated. PT denies SI/HI and AH, + for VH (seeing shadows and people coming up out of the floor). Reports feeling safe on unit.
[2022-05-31 21:50] VITALS: BP 125/69; PULSE 76; RESP 14
[2022-05-31] MEDS: cloNIDine HCL 0.2 MG TABLET PO (21:55)
[2022-05-31] MEDS: rOPINIRole HCL 0.5 MG TABLET PO (21:55)
[2022-05-31] MEDS: OLANZapine 10 MG TABLET PO (21:55)
[2022-05-31] MEDS: guaiFENesin DM 100/10/5 ML 5 ML SYRUP PO (22:47)
[2022-06-01 06:00] VITALS: BP 129/60; PULSE 84; RESP 20; TEMP 38.2; O2SAT 96
[2022-06-01] MEDS: Omeprazole 20 MG CAPSULE.DR PO (06:28)
[2022-06-01] MEDS: guaiFENesin DM 100/10/5 ML 5 ML SYRUP PO ×2 (06:28→13:05)
[2022-06-01] MEDS: Lithium Carbonate 300 MG CAPSULE 600 MG PO ×2 (08:37→22:06)
[2022-06-01] MEDS: Ferrous Sulfate 324 MG TABLET.DR PO (08:38)
[2022-06-01] MEDS: Benztropine Mesylate 1 MG TABLET PO ×2 (08:38→22:07)
[2022-06-01] MEDS: valACYclovir HCL 1,000 MG TABLET 1000 MG PO ×2 (08:38→22:07)
[2022-06-01] MEDS: Cyanocobalamin (Vitamin B-12) 100 MCG TABLET PO (08:38)
[2022-06-01] MEDS: Sertraline HCL 50 MG TABLET PO (08:38)
[2022-06-01] MEDS: Gabapentin 600 MG TABLET PO ×3 (08:38→22:07)
[2022-06-01] MEDS: OXcarbazepine 150 MG TABLET PO ×2 (08:38→22:05)
[2022-06-01 09:21] LABS: Estimated Average Glucose 114 mg/dL; Hemoglobin A1c % 5.6 %
[2022-06-01 10:39] LABS: Cholesterol 171 mg/dL; HDL Cholesterol 42 mg/dL; LDL Cholesterol Calculated 97 mg/dl; Magnesium 1.8 mg/dL (1.6-2.6); Triglycerides 161 mg/dL
[2022-06-01 11:02] LABS: Free T4 (Free Thyroxine) 1.06 ng/dL (0.71-1.85); Thyroid Stimulating Hormone 0.42 uIU/mL (0.32-4.0)
[2022-06-01 11:30] LABS: Folate 7.7 ng/mL (> or = 4.0); Vitamin B12 408 pg/mL (200-900)
[2022-06-01 13:01] VITALS: BP 132/78; PULSE 112; RESP 16; TEMP 38.5; O2SAT 87
[2022-06-01] MEDS: Acetaminophen 325 MG TABLET 650 MG PO (13:05)
[2022-06-01 14:27] VITALS: TEMP 39.4
[2022-06-01 14:28] LABS: COVID-19 Test Positive (Negative); IDNOW Serial# 9DB6401D
--- NOTE | 2022-06-01 17:02 | PM.PSYDC ---
DS: Providers Provider Date of Service: 06/01/22 Date of admission: 05/31/22 15:23 Date of discharge: 06/01/22 Primary care physician: Cori Hooker MD Admitting clinician: Rolanda Wilson Attending physician on admission: Mayo Cardona Consults: 06/01/22 14:20 Consult to Hospitalist Routine Consulting Provider: Hospitalist Reason For Exam: fever,cough, sob, weakness Attending physician on discharge: Mayo Cardona Discharging clinician: Reina Lyle DS: Diagnosis Discharge Diagnosis (1) Bipolar I disorder: Status: Acute (2) PTSD (post-traumatic stress disorder): Status: Acute (3) Cocaine use disorder: Status: Acute (4) COVID-19: Status: Acute DS: Medications Discharge Medications Home Medications: Home Medications Medication Instructions Recorded Confirmed tiotropium bromide 18 mcg capsule 1 cap inhalation DAILY 05/11/22 06/01/22 with inhalation device (Spiriva with HandiHaler) omeprazole 20 mg capsule,delayed 20 mg PO DAILY@0630 06/01/22 06/01/22 release Previous Rx's Medication Instructions Recorded albuterol sulfate 90 mcg/actuation 2 puff inhalation Q4-6H PRN 04/20/22 aerosol inhaler shortness of breath or wheezing 30 days #1 inhaler benztropine 1 mg tablet 1 mg PO BID 30 days #60 tabs 05/18/22 capsaicin 0.025 % topical cream 1 appl topical TID PRN b/l leg 05/18/22 pain #0 grams clonidine HCl 0.2 mg tablet 0.2 mg PO BEDTIME 30 days #30 tabs 05/18/22 cyanocobalamin (vitamin B-12) 100 100 mcg PO DAILY 30 days #30 tabs 05/18/22 mcg tablet ferrous sulfate 324 mg (65 mg 324 mg PO DAILY 30 days #30 tabs 05/18/22 iron) tablet,delayed release gabapentin 600 mg tablet 600 mg PO TID 30 days #90 tabs 05/18/22 lithium carbonate 600 mg capsule 600 mg PO BID 30 days #60 caps 05/18/22 nitroglycerin 0.4 mg sublingual 0.4 mg sublingual Q5MX3 PRN Chest 05/18/22 tablet (Nitrostat) Pain 30 days #10 tabs olanzapine 10 mg tablet 10 mg PO BEDTIME 30 days #30 tabs 05/18/22 oxcarbazepine 150 mg tablet 150 mg PO BID 30 days #60 tabs 05/18/22 ropinirole 0.5 mg tablet 0.5 mg PO BEDTIME 30 days #30 tabs 05/18/22 sertraline 50 mg tablet 50 mg PO DAILY 30 days #30 tabs 05/18/22 trazodone 100 mg tablet 200 mg PO BEDTIME PRN insomnia 30 05/18/22 days #60 tabs valacyclovir 1 gram tablet 1,000 mg PO BID 30 days #60 tabs 05/18/22 Mental Status Exam Mental Status Exam Patient Appearance: Fatigued Patient Orientation: Person, Place, Time and Situation Level of Consciousness: Awake Patient Behavior: Talkative Mood Description: Anxious and Apprehensive Affect Description: Anxious and Apprehensive Patient Cognition Impaired: No Ability to Follow Directions: Fair Speech Pattern: Spontaneous Speech Memory Description: Episodic Impaired Hallucinations: Auditory Perceptual Disturbances: Depersonalization and Derealization Thought Process: Distracted Thought Content: positive for Suicidal Ideation Depressive Symptoms: Increased Anxiety, Increased Fatigue, Thoughts of /Suicide and Loss of Energy Judgement: Fair Data Data Completed and Pending Completed studies during hospitalization [Text1]: 05/30/22 05/30/22 05/30/22 14:13 14:14 14:14 WBC RBC Hgb Hct MCV MCH MCHC RDW Plt Count MPV Immature Gran % (Auto) Neut % (Auto) Lymph % (Auto) [place] % (Auto) Eos % (Auto) Baso % (Auto) Lymph # (Auto) [place] # (Auto) Eos # (Auto) Baso # (Auto) Abs Immat Gran (auto) Absolute Neuts (auto) Absolute Nucleated RBC Nucleated RBC % (auto) Sodium 141 Potassium 4.5 Chloride 104 Carbon Dioxide 29 Anion Gap 13 BUN 12 Creatinine 0.67 Estim Creat Clear Calc 110.5 Estimated GFR > 60 Random Glucose 143 H Estimat Average Glucose Hemoglobin A1c % Calcium 9.5 Magnesium 2.0 Total Bilirubin 0.4 Direct Bilirubin 0.2 AST 12 ALT 15 Alkaline Phosphatase 78 D B-Natriuretic Peptide 40 Total Protein 6.8 Albumin 4.4 Triglycerides Cholesterol LDL Cholesterol, Calc HDL Cholesterol Vitamin B12 Folate TSH Free T4 Urine Color Urine Appearance Urine pH Ur Specific [place] Urine Protein Urine Glucose (UA) Urine Ketones Urine Blood Urine Nitrite Ur Leukocyte Esterase Urine Opiates Screen Urine Fentanyl Screen Ur Barbiturates Screen Ur Phencyclidine Scrn Ur Amphetamines Screen U Benzodiazepines Scrn [place] Urine Cocaine Screen U Marijuana (THC) Screen Ethyl Alcohol < 10 COVID-19 (ENDY) Negative COVID-19 Clin Com See Note 05/30/22 05/30/22 05/30/22 14:15 14:16 17:56 WBC 6.0 RBC 4.53 Hgb 13.5 Hct 41.8 MCV 92.3 MCH 29.8 MCHC 32.3 RDW 12.9 Plt Count 337 D MPV 9.7 Immature Gran % (Auto) 0.2 Neut % (Auto) 55.9 Lymph % (Auto) 35.1 [place] % (Auto) 6.6 Eos % (Auto) 1.2 Baso % (Auto) 1.0 Lymph # (Auto) 2.1 [place] # (Auto) 0.4 Eos # (Auto) 0.1 Baso # (Auto) 0.1 Abs Immat Gran (auto) 0.01 Absolute Neuts (auto) 3.4 Absolute Nucleated RBC 0.000 Nucleated RBC % (auto) 0.0 Sodium Potassium Chloride Carbon Dioxide Anion Gap BUN Creatinine Estim Creat Clear Calc Estimated GFR Random Glucose Estimat Average Glucose Hemoglobin A1c % Calcium Magnesium Total Bilirubin Direct Bilirubin AST ALT Alkaline Phosphatase B-Natriuretic Peptide Total Protein Albumin Triglycerides Cholesterol LDL Cholesterol, Calc HDL Cholesterol Vitamin B12 Folate TSH Free T4 Urine Color YELLOW Urine Appearance CLEAR Urine pH 6.0 Ur Specific [place] 1.020 Urine Protein NEG Urine Glucose (UA) NEG Urine Ketones NEG Urine Blood NEG Urine Nitrite NEG Ur Leukocyte Esterase NEG Urine Opiates Screen Urine Fentanyl Screen Ur Barbiturates Screen Ur Phencyclidine Scrn Ur Amphetamines Screen U Benzodiazepines Scrn [place] 0.06 L Urine Cocaine Screen U Marijuana (THC) Screen Ethyl Alcohol COVID-19 (ENDY) COVID-19 Clin Com 05/30/22 06/01/22 06/01/22 17:56 08:24 08:24 WBC RBC Hgb Hct MCV MCH MCHC RDW Plt Count MPV Immature Gran % (Auto) Neut % (Auto) Lymph % (Auto) [place] % (Auto) Eos % (Auto) Baso % (Auto) Lymph # (Auto) [place] # (Auto) Eos # (Auto) Baso # (Auto) Abs Immat Gran (auto) Absolute Neuts (auto) Absolute Nucleated RBC Nucleated RBC % (auto) Sodium Potassium Chloride Carbon Dioxide Anion Gap BUN Creatinine Estim Creat Clear Calc Estimated GFR Random Glucose Estimat Average Glucose 114 Hemoglobin A1c % 5.6 Calcium Magnesium 1.8 Total Bilirubin Direct Bilirubin AST ALT Alkaline Phosphatase B-Natriuretic Peptide Total Protein Albumin Triglycerides 161 Cholesterol 171 LDL Cholesterol, Calc 97 HDL Cholesterol 42 Vitamin B12 Folate TSH 0.42 Free T4 1.06 Urine Color Urine Appearance Urine pH Ur Specific [place] Urine Protein Urine Glucose (UA) Urine Ketones Urine Blood Urine Nitrite Ur Leukocyte Esterase Urine Opiates Screen Not Detected Urine Fentanyl Screen Not Detected Ur Barbiturates Screen Not Detected Ur Phencyclidine Scrn Not Detected Ur Amphetamines Screen Not Detected U Benzodiazepines Scrn Not Detected [place] Urine Cocaine Screen POSITIVE H U Marijuana (THC) Screen Not Detected Ethyl Alcohol COVID-19 (ENDY) COVID-[employer] 06/01/22 06/01/22 08:24 14:07 WBC RBC Hgb Hct MCV MCH MCHC RDW Plt Count MPV Immature Gran % (Auto) Neut % (Auto) Lymph % (Auto) [place] % (Auto) Eos % (Auto) Baso % (Auto) Lymph # (Auto) [place] # (Auto) Eos # (Auto) Baso # (Auto) Abs Immat Gran (auto) Absolute Neuts (auto) Absolute Nucleated RBC Nucleated RBC % (auto) Sodium Potassium Chloride Carbon Dioxide Anion Gap BUN Creatinine Estim Creat Clear Calc Estimated GFR Random Glucose Estimat Average Glucose Hemoglobin A1c % Calcium Magnesium Total Bilirubin Direct Bilirubin AST ALT Alkaline Phosphatase B-Natriuretic Peptide Total Protein Albumin Triglycerides Cholesterol LDL Cholesterol, Calc HDL Cholesterol Vitamin B12 408 Folate 7.7 TSH Free T4 Urine Color Urine Appearance Urine pH Ur Specific [place] Urine Protein Urine Glucose (UA) Urine Ketones Urine Blood Urine Nitrite Ur Leukocyte Esterase Urine Opiates Screen Urine Fentanyl Screen Ur Barbiturates Screen Ur Phencyclidine Scrn Ur Amphetamines Screen U Benzodiazepines Scrn [place] Urine Cocaine Screen U Marijuana (THC) Screen Ethyl Alcohol COVID-19 (ENDY) Positive A COVID-19 Conservis See Note Imaging Diagnostic Imaging Impressions Chest X-Ray 05/30/22 13:13 IMPRESSION: No radiographic evidence of acute cardiopulmonary disease. No significant change since 04/19/2022. DS: Summary Hospital Course Hospital Course: Admission to adult psychiatry for an exacerbation of symptoms of bipolar disorder, PTSD with SI with plan and intent. Pt stopped taking medications and relapsed on cocaine. Once on the unit she experienced increasing symptoms of medical illness with increased weakness, falling, shortness of breath, increasing fever 100-103. Rapid COVID-19 testing was positive and pt was transferred to [facility] for further medical treatment, with a plan to return to for psychiatric care once she is medically stabilized. Time spent discussing smoking cessation with patient: 3 to 10 minutes Status at Discharge Functional status at discharge: bed bound Overall status at discharge: patient is not back to baseline Time Spent with Patient Time attestation: Total time spent providing and/or coordinating discharge services: 30 Time spent: Less than 30 minutes Discharge Plan Discharge Patient Disposition: Xfer Acute Care Hospital Discharge Diagnosis: Bipolar Disorder Cocaine Use Disorder PTSD New COVID diagnosis with active symptoms Referrals: Cori Hooker MD [Primary Care Provider] - 1 Week Discharge Medications: No Action albuterol sulfate 90 mcg/actuation HFA aerosol inhaler 2 puff inhalation Q4-6H PRN (Reason: shortness of breath or wheezing) 30 Days Qty: 1 0RF Spiriva with HandiHaler 18 mcg capsule, w/inhalation device 1 cap inhalation DAILY capsaicin 0.025 % Cream 1 appl topical TID PRN (Reason: b/l leg pain) Qty: 0 0RF Protocol: Apply to: Apply to: b/l leg valacyclovir 1 gram tablet 1,000 mg PO BID 30 Days Qty: 60 0RF ferrous sulfate 324 mg (65 mg iron) tablet,delayed release (DR/EC) 324 mg PO DAILY 30 Days Qty: 30 0RF clonidine HCl 0.2 mg tablet 0.2 mg PO BEDTIME 30 Days Qty: 30 0RF benztropine 1 mg tablet 1 mg PO BID 30 Days Qty: 60 0RF nitroglycerin [Nitrostat] 0.4 mg Tablet, Sublingual 0.4 mg sublingual Q5MX3 PRN (Reason: Chest Pain) 30 Days Qty: 10 0RF olanzapine 10 mg tablet 10 mg PO BEDTIME 30 Days Qty: 30 0RF lithium carbonate 600 mg capsule 600 mg PO BID 30 Days Qty: 60 0RF gabapentin 600 mg tablet 600 mg PO TID 30 Days Qty: 90 0RF oxcarbazepine 150 mg tablet 150 mg PO BID 30 Days Qty: 60 0RF cyanocobalamin (vitamin B-12) 100 mcg tablet 100 mcg PO DAILY 30 Days Qty: 30 0RF trazodone 100 mg tablet 200 mg PO BEDTIME PRN (Reason: insomnia) 30 Days Qty: 60 0RF ropinirole 0.5 mg tablet 0.5 mg PO BEDTIME 30 Days Qty: 30 0RF sertraline 50 mg tablet 50 mg PO DAILY 30 Days Qty: 30 0RF omeprazole 20 mg capsule,delayed release(DR/EC) 20 mg PO DAILY@0630 Discharge Orders: Discharge Order (Routine); Ordered 06/01/22 Ordered By: Reina Lyle Stand Alone Forms: Patient Portal Discharge page Care Plan Goals: Medical stability Health Concerns: Symptomatic COVID-19 Plan of Treatment: Transfer to [facility] for treatment of COVID Assessment: Pt agrees to medical transfer
[2022-06-01 18:00] VITALS: BP 112/60; PULSE 96; RESP 17; TEMP 37.7; O2SAT 96
[2022-06-01 19:14] LABS: Lactate Dehydrogenase 208 U/L (122-220)
--- NOTE | 2022-06-01 20:08 | PC.NURSE ---
Assumed care at 18:10. Patient admitted from [facility]. Has tested positive for covid. Is alert, oriented, responds appropriately, endorses suicidal ideation continuing, and reports having a plan: to jump off a bridge. She says she has tried to jump off a bridge in the past. Patient arrived without 1:1 sitter, discussed with nursing marina sales and service supervisor, discussed with BUSINESS DEVELOPMENT ASSISTANT. For the remainder of this shift, the RN and the CERTIFIED RETINAL ANGIOGRAPHER took turns sitting with patient. Patient is breathing easily on room air with adequate oxygen saturation. Patient arrived with a temperature of 100. Patient is not on telemetry. Telesitter provided due to history of SI and difficulty providing a dedicated sitter. Patient denied pain. Patient has a lump behind her left mandibular angle and under that left ear, and a second lump on her anteromedial right elbow, both are soft and rubbery. Patient is able to ambulate with her rolling walker. to the BR. 20 gauge IV placed to left AC, well toleratd.
[2022-06-01 21:22] VITALS: BP 131/77; PULSE 85; RESP 22; TEMP 38.2; O2SAT 92
[2022-06-01] MEDS: OLANZapine 10 MG TABLET PO (22:06)
[2022-06-01] MEDS: rOPINIRole HCL 0.5 MG TABLET PO (22:07)
[2022-06-01] MEDS: cloNIDine HCL 0.2 MG TABLET PO (22:07)
[2022-06-02] VITALS: TEMP 37.1
[2022-06-02] MEDS: Albuterol Sulfate 90 MCG 8 GM INHALER 2 PUFF INHALE (03:25)
[2022-06-02 03:26] VITALS: PULSE 75; RESP 16; O2SAT 90
[2022-06-02] MEDS: guaiFENesin DM 100/10/5 ML 5 ML SYRUP PO ×2 (03:38→10:06)
[2022-06-02 04:00] VITALS: BP 94/53; PULSE 76; RESP 20; TEMP 37.2; O2SAT 81
[2022-06-02 04:23] VITALS: O2SAT 86
[2022-06-02 05:16] LABS: ABG Base Excess 3.4 mmol/L; ABG HCO3 28 mmol/L (22-26); ABG pCO2 46 mmHg (32-45); ABG pO2 60 mmHg (83-108)
[2022-06-02 05:55] LABS: ABG Refer to POC result
[2022-06-02 07:42] LABS: Glucose, Whole Blood 106 mg/dL (60-115)
[2022-06-02] MEDS: Capsaicin 0.025% Cream 60 GM TUBE 1 APPL TOPICAL (07:51)
[2022-06-02 07:52] VITALS: BP 83/51; PULSE 75; RESP 20; TEMP 36.4; O2SAT 91
[2022-06-02] MEDS: OXcarbazepine 150 MG TABLET PO (07:52)
[2022-06-02] MEDS: Ferrous Sulfate 324 MG TABLET.DR PO (07:52)
[2022-06-02] MEDS: Nicotine 21 MG PATCH.TD24 TRANSDERMA (07:52)
[2022-06-02] MEDS: valACYclovir HCL 1,000 MG TABLET 1000 MG PO (07:52)
[2022-06-02] MEDS: Lithium Carbonate 300 MG CAPSULE 600 MG PO (07:53)
[2022-06-02] MEDS: Gabapentin 600 MG TABLET PO (07:53)
[2022-06-02] MEDS: Benztropine Mesylate 1 MG TABLET PO (07:53)
[2022-06-02] MEDS: Sertraline HCL 50 MG TABLET PO (07:53)
[2022-06-02] MEDS: Cyanocobalamin (Vitamin B-12) 100 MCG TABLET PO (07:55)
[2022-06-02] MEDS: dexAMETHasone sod phosphate 4 MG/ML VIAL 6 MG IVPUSH (08:06)
--- NOTE | 2022-06-02 09:22 | MHC.CM.PN ---
Female 52 COVID+ She states that she lives alone in [place]. She uses a walker for unsteady gait. PCP Dr Recinos. Patient 1:1 sitter for SI. DP She has a dc order to [facility]. [place] to [facility].
[2022-06-02] MEDS: Remdesivir 200 MG in 0.9 % Sodium Chloride 210 ML 105 MG IV (10:06)
== END 2022-06-01 15:21 | disposition short-term general hospital (02) | DRG 753 ==
LOC: HO.ED 15:15 → HO.PM5 05-31 15:28 → HO.IMC 06-01 16:56
PROVIDERS: Clinical Nurse Specialist Psychiatric/Mental Health, Adult; Hospitalist; Nurse Practitioner Acute Care; Physician Assistant; Admitting Provider Psychiatry & Neurology Psychiatry; Emergency Provider Student in an Organized Health Care Education/Training Program; PCP Family Medicine; Visit Provider Psychiatry & Neurology Psychiatry
DX: F31.9 Bipolar disorder, unspecified (principal); U07.1 COVID-19; F17.210 Nicotine dependence, cigarettes, uncomplicated; Z56.0 Unemployment, unspecified; F60.3 Borderline personality disorder; F14.10 Cocaine abuse, uncomplicated; F43.10 Post-traumatic stress disorder, unspecified; Z71.6 Tobacco abuse counseling; Z91.52 Personal history of nonsuicidal self-harm; Z91.013 Allergy to seafood; Z91.030 Bee allergy status; Z88.0 Allergy status to penicillin; Z88.2 Allergy status to sulfonamides; Z88.8 Allergy status to other drugs, medicaments and biological substances; Z79.899 Other long term (current) drug therapy
CPT/HCPCS: 36415; 36600; 71046; 80048; 80061; 80076; 80178; 80307; 81003; 82077; 82607; 82746; 82803; 82947; 83036; 83615; 83735; 83880; 84439; 84443; 85025; 87635; 93005; 94660; 99285; J0248; J1100

== ENCOUNTER 2022-06-01 16:10 | Inpatient (IN) | payer MEDICAID, SELFPAY ==
--- NOTE | ~2022-06-01 | CT_ITS ---
EXAMINATION: CT ANGIOGRAM OF THE CHEST WITH AND WITHOUT CONTRAST (CT PULMONARY ANGIOGRAM FOR PE) CLINICAL INFORMATION: Reason for Exam Hypoxia COMPARISON: None TECHNIQUE: Prior to contrast administration, noncontrast localization images were obtained. Subsequently, multidetector volumetric imaging was performed from the thoracic inlet to below the diaphragms following the administration of 80 mL Omnipaque 350 intravenous contrast. No contrast reaction reported Sagittal, coronal, and MIP oblique sagittal reformatted images were obtained on the CT workstation, uploaded to PACS, and reviewed. This CT examination was performed using dose optimization techniques as appropriate, variously including the following: *Automated exposure control *Adjustment of mA and/or kV according to patient size (this includes techniques or standardized protocols for targeted exams where dose is matched to indication/reason for exam; i.e. extremities or head) *Use of iterative reconstruction technique Total exam dose-length product 507 mGy-cm FINDINGS: QUALITY OF STUDY/CONTRAST BOLUS: Satisfactory. PULMONARY ARTERIES: No central or segmental pulmonary emboli. THORACIC AORTA: No aneurysm or dissection. LUNG: There are minor dependent densities noted with a minor consolidation base. No suspicious masses or nodules. PLEURA: No pleural effusion or pneumothorax. MEDIASTINUM: Normal heart size. No pericardial effusion. No hilar or mediastinal lymphadenopathy. No evidence of septal bowing or right heart strain. CHEST WALL/AXILLA: No axillary or internal mammary lymphadenopathy. OSSEOUS STRUCTURES: Degenerative change in the thoracic spine. No fracture or destructive process. UPPER ABDOMEN: Gallbladder absent. Prominent liver. No reflux of contrast into the hepatic veins to suggest elevated right heart pressures. CT/CT angio chest PE protocol IMPRESSION: Left basilar infiltrate. No evidence for acute PE. VTE: negative
--- NOTE | 2022-06-01 16:16 | PM.IMHP ---
History of Present Illness Date of Service: 06/01/22 Chief Complaint: Shortness of breath 52-year-old woman admitted to for [facility] developed fever, shortness of breath, diaphoresis and had a fall last evening. She subsequently had a COVID test and was positive. Since the patient was noted to be hypoxic with oxygen saturation 87%, it was prudent to transfer her to a medical floor for further observation and treatment. Review of Systems Review of Systems: Denies any recent fever chills or decrease in appetite respiratory see HPI cardiovascular denies chest pain gastrointestinal denies any dysphagia abdominal pain nausea vomiting or diarrhea genitourinary denies any dysuria frequency or hematuria musculoskeletal denies any joint pain or swelling neuropsych denies any weakness or seizures all other systems reviewed are negative [facility] Medical History Asthma exacerbation in COPD Bipolar disorder Borderline personality disorder COPD (chronic obstructive pulmonary disease) Depression Drug abuse Herpes Intermittent explosive disorder Mass of parotid gland FABIOLA (obstructive sleep apnea) Post traumatic stress disorder (PTSD) Pseudoseizures Tobacco use Family History Mother COPD (chronic obstructive pulmonary disease) Surgical History History of ankle surgery History of appendectomy History of back surgery Hx of cholecystectomy Social History Household Members: None Household Members Other:: Prison in [place] Housing: House Housing Other:: Sleeps on the couch at [facility] house Do you presently have visiting nurse or other home services: No Unable to assess alcohol history related to: Unknown Alcohol intake: never Patient Tobacco Use Status: Current everyday Tobacco user Tobacco use type: Cigarette Cigarette Packs Per Day: 3 Cigarettes Per Day: 60.0 Years Smoked: 20+ Smoked in Last 30 Days: Yes e-Cigarette/Vaping Use: Never Used Patient Interested in Nicotine Replacement: No Patient Given Instructions on How to Stop Smoking: Yes Date Education Initiated: 06/02/22 Second Hand Smoke Exposure: Yes Substance Use Type: Crack/Cocaine Substance Use Frequency: Chronic Longstanding Have you been hit, kicked, punched, or otherwise hurt by someone within the past year? If so, by whom?: No Do you feel safe in your current relationship?: Yes Is there a partner from a previous relationship who is making you feel unsafe now?: No Are you made to feel afraid or neglected: No Advance Directives: Yes Advance Directives on File: Yes Advance Directives Date on File: 12/24/20 Do you have thoughts of harming others: None Do you have a plan to hurt others: No Plan Recently lost weight without trying: No Nutrition Risks: No Nutritional Risk Patient : No : No Poor oral hygiene: No service: No Current occupational status: unemployed and disabled Sexual orientation: Straight/Heterosexual Meds Allergies Allergy/AdvReac Type Severity Reaction Status Date / Time aspirin [Aspirin] Allergy Severe HIVES,THROAT Verified 10/13/21 04:51 SWELLS bee pollen [BEE STINGS] Allergy Severe ANAPHYLAXIS Verified 10/13/21 04:51 diphenhydramine Allergy Severe hives, Verified 10/13/21 04:51 [From BENADRYL ALLERGY] throat swells Penicillins [PCN] Allergy Severe HIVES Verified 10/13/21 04:51 THROAT SWELLS Sulfa (Sulfonamide Allergy Intermediate HIVES Verified 10/13/21 04:51 Antibiotics) [SULFA (SULFONAMIDE ANTIBIOTICS)] tramadol [TRAMADOL] Allergy Intermediate ITCHING Verified 10/13/21 04:51 latex [LATEX] Allergy Unknown UNKNOWN Verified 10/13/21 04:51 penicillin G Allergy Unknown Unknown Verified 10/13/21 04:51 levofloxacin [From Levaquin] Allergy Hives Verified 10/13/21 04:51 hydroxyzine AdvReac Severe restless Verified 01/27/22 19:57 legs seafood AdvReac Stomach Verified 03/17/22 12:07 Upset Active Medications: Current Medications Acetaminophen (Acetaminophen 325 Mg Tablet) 650 mg PO Q6H PRN PRN Reason: Pain, Mild (Pain Scale 1-3) Albuterol Sulfate (Albuterol Sulfate (0.083%) 2.5 Mg/3 Ml Vial.Neb) 2.5 mg INHALE RQ4H WHILE AWAKE TEJA Dexamethasone Sodium Phosphate (Dexamethasone Sod Phosphate 4 Mg/Ml Vial) 6 mg IVPUSH DAILY ETJA Stop: 06/11/22 16:14 Enoxaparin Sodium (Enoxaparin Sodium 40 Mg/0.4 Ml Syringe) 40 mg SUBCUT Q24H TEJA Ondansetron HCl (Ondansetron Hcl 4 Mg/2 Ml Vial) 4 mg IVPUSH Q8H PRN PRN Reason: Nausea and Vomiting Pharmacy Consult (Consult Rx Perform Med Rec) 1 each MISCELLANE ONCE PRN PRN Reason: Consult order Sodium Chloride (0.9 % Sodium Chloride Flush 3 Ml Syringe) [facility] Medications Medication Instructions Recorded Confirmed Last Taken Type tiotropium bromide 18 mcg capsule 1 cap inhalation DAILY 05/11/22 06/01/22 06/01/22 History with inhalation device (Spiriva with HandiHaler) omeprazole 20 mg capsule,delayed 20 mg PO DAILY@0630 06/01/22 06/01/22 06/01/22 History release Physical Exam Vital Signs and Narrative: Appearing in no acute distress head is normocephalic atraumatic eyes pupils are PERRLA sclera is anicteric mouth throat mucous membranes are intact and moist neck is supple no lymphadenopathy, no JVD noted lung sounds are clear to auscultation heart regular rate rhythm, clear S1, S2 positive bowel sounds, abdomen is soft, nontender neuro patient is alert x3, no focal deficits Results Labs CBC and Chem 7: 06/02/22 10:01 06/01/22 18:40 Assessment and Plan (1) COVID-19: Status: Acute Plan 52-year-old woman initially admitted to for [facility]. She developed fever, weakness, shortness of breath, diaphoresis and had a fall last evening. She was subsequently tested for COVID-19 and was positive today. Plan was for transfer from to medical floor for monitoring and treatment Sepsis secondary to COVID-19 virus Fever, tachycardia Lactic acid is pending Will treat with Decadron, remdesivir Check ferritin, procalcitonin Supplemental oxygen as needed Obtain basic labs as well as ferritin, procalcitonin [facility] Mental health-bipolar disorder, PTSD Will consult Psychiatry so they can continue to follow Continue her usual medications Will likely need to return to once medically clear History of neoplasm of parotid gland According to psychiatric provider patient has not followed up She should follow up as outpatient with her primary care doctor AsthmaChristopher Ambrosio, will be on Decadron Substance abuse History of cocaine use Addiction counseling Anemia Continue iron supplementation DVT prophylaxis with Lovenox Attending Dr. Herman Full code Patient likely requires 2 midnights in the hospital for treatment of sepsis secondary to COVID-19 virus requiring IV steroids and oxygen therapy Quality Stroke Does the patient have a stroke diagnosis?: No VTE Prior VTE?: No VTE Risk Level:: Medical - moderate - high VTE Device Contraindication: Treatment Not Indicated VTE Drug Contraindication: N/A - Med Ordered
[2022-06-01 18:58] LABS: Hemoglobin 13.6 g/dl (12.0-16.0); Mean Corpuscular HGB Conc 32.4 g/dl (31.0-35.0); Mean Corpuscular Hemoglobin 30.3 pg (27.0-33.0); Mean Corpuscular Volume 93.5 fL (80.0-98.0); Mean Platelet Volume 10.1 fL (9.4-12.3); Platelet Count 281 X10*3/uL (160-400); Red Blood Count 4.49 X10*6/uL (4.20-5.50); Red Cell Distribution Width 12.7 % (11.0-16.0)
[2022-06-01 19:07] LABS: Partial Thromboplastin Time 34.2 SEC (26.0-36.4)
[2022-06-01 19:17] LABS: Lactic Acid 0.8 mmol/L (0.5-2.0)
[2022-06-01 19:21] LABS: Anion Gap 15 (12-20); Blood Urea Nitrogen 12 mg/dL (9-16); Carbon Dioxide 29 mmol/L (22-29); Chloride 97 mmol/L (96-108); Estimated Glomerular Filt Rate > 60; Glucose Random 85 mg/dL (60-115); Potassium 4.4 mmol/L (3.3-5.1); Sodium 137 mmol/L (135-145)
[2022-06-01 19:41] LABS: Procalcitonin 0.05 ng/mL
[2022-06-01 19:43] LABS: Ferritin 51 ng/mL (10-250)
--- NOTE | 2022-06-02 | ECG_ITS ---
Test Reason : cp Blood Pressure : / mmHG Vent. Rate : 074 BPM Atrial Rate : 074 BPM P-R Int : 136 ms QRS Dur : 084 ms QT Int : 390 ms P-R-T Axes : 038 038 005 degrees QTc Int : 432 ms Normal sinus rhythm Normal ECG When compared with ECG of 30-MAY-2022 13:37, No significant change was found Referred By: Eric Cavazos Electronically Signed By:VAIBHAV KILLIAN MD
[2022-06-02 10:11] LABS: MANUAL DIFF FLAG NO
[2022-06-02 10:18] LABS: Basophils Percent Auto 0.6 % (0-2); Eosinophils Percent Auto 0.2 % (0-4); Hematocrit 42.1 % (37.0-47.0); Hemoglobin 13.3 g/dl (12.0-16.0); Imm Gran Abs Auto 0.01 X10*3/uL (0.00-0.03); Imm Gran Pct Auto 0.2 % (0.0-0.4); Lymphocytes Absolute Auto 1.4 X10*3/uL (1.2-4.9); Lymphocytes Percent Auto 25.7 % (20-40); Mean Corpuscular HGB Conc 31.6 g/dl (31.0-35.0); Mean Corpuscular Hemoglobin 29.6 pg (27.0-33.0); Mean Corpuscular Volume 93.8 fL (80.0-98.0); Mean Platelet Volume 10.2 fL (9.4-12.3); Monocytes Absolute Auto 0.4 X10*3/uL (0.1-1.2); Monocytes Percent Auto 7.6 % (2-11); Neutrophils Absolute Auto 3.5 x10*3/uL (2.0-8.3); Neutrophils Percent Auto 65.7 % (45-73); Platelet Count 225 X10*3/uL (160-400); Red Blood Count 4.49 X10*6/uL (4.20-5.50); Red Cell Distribution Width 12.9 % (11.0-16.0); White Blood Count 5.3 X10*3/uL (4.8-10.8)
[2022-06-02 10:28] LABS: Partial Thromboplastin Time 32.7 SEC (26.0-36.4)
--- NOTE | 2022-06-02 11:27 | MHC.CM.PN ---
Female 52 DX Covid+ SI She stated that she lives alone. Documentation noted homeless. She states that she uses a walker and could use assist with ADLs. Patient was agreeable to Homecare services. She was intended for admit on [facility]. Covid+ test result indicated that she be placed on the covid unit. DP [facility] vs STR vs home with services. She will need assist with transportation home.
[2022-06-02] MEDS: dexAMETHasone sod phosphate 4 MG/ML VIAL 6 MG IVPUSH (12:57)
[2022-06-02] MEDS: 0.9 % Sodium Chloride Flush 3 ML SYRINGE IVFLUSH ×3 (12:57→21:29)
[2022-06-02 14:15] LABS: Anion Gap 13 (12-20); Blood Urea Nitrogen 14 mg/dL (9-16); Carbon Dioxide 29 mmol/L (22-29); Estimated Glomerular Filt Rate 40
[2022-06-02 14:29] LABS: Calcium 9.2 mg/dL (8.4-10.2); Chloride 100 mmol/L (96-108); Glucose Random 118 mg/dL (60-115); Potassium 4.2 mmol/L (3.3-5.1); Sodium 138 mmol/L (135-145)
[2022-06-02 15:06] VITALS: BP 106/59; PULSE 80; RESP 18; TEMP 36.7; O2SAT 93
--- NOTE | 2022-06-02 15:19 | PM.CNPUL ---
History of Present Illness History of Present Illness Consult date: 06/02/22 Chief complaint: COVID 19 Narrative: I have seen this patient for pulmonary consultation. She is 52 years old patient with chronic obesity, and diagnosis of the obstructive sleep apnea for which she is being treated with CPAP. She has also longstanding history of asthma/COPD which has been treated with SPIRIVA HANDI-HALER 1 INHALATION DAILY AND ALBUTEROL 2 PUFFS Q 6 HOURS P.R.N. More details are not available at this time. Patient has been seen by , in the past, when she was admitted to the psych jama. His diagnosis was Asthma/COPD syndrome , and he advised that patient should continue to use Spiriva and albuterol. This time the patient was admitted to psych unit. Since yesterday she started having low-grade fever, sweating and increased shortness of breath. COVID test was positive. Patient became hypoxemic and required oxygen supplementation. She has been transferred to the [facility] unit, for further management. From the records available it seems that she has been a smoker. Review of Systems Review of Systems: Yes Unobtainable due to mental condition PMFSH Past Medical History Medical History Asthma exacerbation in COPD Bipolar disorder Borderline personality disorder COPD (chronic obstructive pulmonary disease) Depression Drug abuse Herpes Intermittent explosive disorder Mass of parotid gland FABIOLA (obstructive sleep apnea) Post traumatic stress disorder (PTSD) Pseudoseizures Tobacco use Family History Family History Mother COPD (chronic obstructive pulmonary disease) Surgical History Surgical History History of ankle surgery History of appendectomy History of back surgery Hx of cholecystectomy Social History Social History Household Members: None Household Members Other:: Prison in [place] Housing: House Housing Other:: Sleeps on the couch at [facility] house Do you presently have visiting nurse or other home services: No Unable to assess alcohol history related to: Unknown Alcohol intake: never Patient Tobacco Use Status: Current everyday Tobacco user Tobacco use type: Cigarette Cigarette Packs Per Day: 3 Cigarettes Per Day: 60.0 Years Smoked: 20+ Smoked in Last 30 Days: Yes e-Cigarette/Vaping Use: Never Used Patient Interested in Nicotine Replacement: No Patient Given Instructions on How to Stop Smoking: Yes Date Education Initiated: 06/02/22 Second Hand Smoke Exposure: Yes Substance Use Type: Crack/Cocaine Substance Use Frequency: Chronic Longstanding Have you been hit, kicked, punched, or otherwise hurt by someone within the past year? If so, by whom?: No Do you feel safe in your current relationship?: Yes Is there a partner from a previous relationship who is making you feel unsafe now?: No Are you made to feel afraid or neglected: No Advance Directives: Yes Advance Directives on File: Yes Advance Directives Date on File: 12/24/20 Do you have thoughts of harming others: None Do you have a plan to hurt others: No Plan Recently lost weight without trying: No Nutrition Risks: No Nutritional Risk Patient : No : No Poor oral hygiene: No service: No Current occupational status: unemployed and disabled Sexual orientation: Straight/Heterosexual Meds Allergies Allergy/AdvReac Type Severity Reaction Status Date / Time aspirin [Aspirin] Allergy Severe HIVES,THROAT Verified 10/13/21 04:51 SWELLS bee pollen [BEE STINGS] Allergy Severe ANAPHYLAXIS Verified 10/13/21 04:51 diphenhydramine Allergy Severe hives, Verified 10/13/21 04:51 [From BENADRYL ALLERGY] throat swells Penicillins [PCN] Allergy Severe HIVES Verified 10/13/21 04:51 THROAT SWELLS Sulfa (Sulfonamide Allergy Intermediate HIVES Verified 10/13/21 04:51 Antibiotics) [SULFA (SULFONAMIDE ANTIBIOTICS)] tramadol [TRAMADOL] Allergy Intermediate ITCHING Verified 10/13/21 04:51 latex [LATEX] Allergy Unknown UNKNOWN Verified 10/13/21 04:51 penicillin G Allergy Unknown Unknown Verified 10/13/21 04:51 levofloxacin [From Levaquin] Allergy Hives Verified 10/13/21 04:51 hydroxyzine AdvReac Severe restless Verified 01/27/22 19:57 legs seafood AdvReac Stomach Verified 03/17/22 12:07 Upset Active Medications: Current Medications Acetaminophen (Acetaminophen 325 Mg Tablet) 650 mg PO Q6H PRN PRN Reason: Headache/Pain Mild Scale (1-3) Al Hydroxide/Mg Hydroxide (Magnesium Hydrox/Alum Hydrox 30 Ml Oral.Susp) 30 ml PO Q6H PRN PRN Reason: Heartburn/Nausea Albuterol Sulfate (Albuterol Sulfate (0.083%) 2.5 Mg/3 Ml Vial.Neb) 2.5 mg INHALE RQ4H WHILE AWAKE [facility] Albuterol Sulfate (Albuterol Sulfate 90 Mcg 8 Gm Inhaler) 2 puff INHALE RQ4H PRN PRN Reason: shortness of breath or wheezing Benztropine Mesylate (Benztropine Mesylate 1 Mg Tablet) 1 mg PO BID [facility] Capsaicin (Capsaicin 0.025% Cream 60 Gm Tube) 1 appl TOPICAL TID PRN; Protocol PRN Reason: b/l leg pain Clonidine HCl (Clonidine Hcl 0.2 Mg Tablet) 0.2 mg PO BEDTIME TEJA; Protocol Clonidine HCl (Clonidine Hcl 0.1 Mg Tablet) 0.1 mg PO TID PRN; Protocol PRN Reason: hyperarousal, anxiety Cyanocobalamin (Cyanocobalamin (Vitamin B-12) 100 Mcg Tablet) 100 mcg PO DAILY [facility] Dexamethasone Sodium Phosphate (Dexamethasone Sod Phosphate 4 Mg/Ml Vial) 6 mg IVPUSH DAILY [facility] Enoxaparin Sodium (Enoxaparin Sodium 40 Mg/0.4 Ml Syringe) 40 mg SUBCUT Q24H [facility] Last Admin: 06/02/22 12:59 Dose: Not Given Ferrous Sulfate (Ferrous Sulfate 324 Mg Tablet.Dr) 324 mg PO DAILY [facility] Gabapentin (Gabapentin 600 Mg Tablet) 600 mg PO TID [facility] Guaifenesin/Dextromethorphan (Guaifenesin Dm 100/10/5 Ml 5 Ml Syrup) 5 ml PO Q6H PRN PRN Reason: cough Remdesivir 100 mg/ Sodium (Chloride) 230 mls @ 115 mls/hr IV Q24H [facility] Stop: 06/06/22 10:59 [place] Carbonate ([place] Carbonate 300 Mg Capsule) 600 mg PO BID [facility] Magnesium Hydroxide (Milk Of Magnesia 30 Ml Oral.Susp) 30 ml PO DAILY PRN PRN Reason: Constipation Nicotine (Nicotine 21 Mg Patch.Td24) 21 mg TRANSDERMA DAILY [facility] Nicotine Polacrilex (Nicotine Polacrilex 2 Mg Gum) 4 mg BUCCAL Q1H PRN PRN Reason: Nicotine Cravings Nitroglycerin (Nitroglycerin 0.4 Mg Tab.Subl) 0.4 mg SUBLINGUAL Q5MX3 PRN PRN Reason: Chest Pain Olanzapine (Olanzapine 5 Mg Tablet) 5 mg PO TID PRN PRN Reason: anxiety, agitation Olanzapine (Olanzapine 10 Mg Tablet) 10 mg PO BEDTIME [facility] Omeprazole (Omeprazole 20 Mg Capsule.Dr) 20 mg PO DAILY@06 [facility] Ondansetron HCl (Ondansetron Hcl 4 Mg/2 Ml Vial) 4 mg IVPUSH Q8H PRN PRN Reason: Nausea and Vomiting Oxcarbazepine (Oxcarbazepine 150 Mg Tablet) 150 mg PO BID [facility] Pharmacy Consult (Consult Rx Perform Med Rec) 1 each MISCELLANE ONCE PRN PRN Reason: Consult order Ropinirole HCl (Ropinirole Hcl 0.5 Mg Tablet) 0.5 mg PO BEDTIME [facility] Sertraline HCl (Sertraline Hcl 50 Mg Tablet) 50 mg PO DAILY [facility] Sodium Chloride (0.9 % Sodium Chloride Flush 3 Ml Syringe) 3 ml IVFLUSH QSHIFT [facility] Last Admin: 06/02/22 12:59 Dose: Not Given Tiotropium [place] (Tiotropium [place] 18 Mcg Cap.W.Dev) 1 puff INHALE RDAILY [facility] Trazodone HCl (Trazodone Hcl 100 Mg Tablet) 200 mg PO BEDTIME PRN PRN Reason: insomnia Valacyclovir HCl (Valacyclovir Hcl 1,000 Mg Tablet) 1,000 mg PO BID [facility] Home Medications Medication Instructions Recorded Confirmed Last Taken Type tiotropium bromide 18 mcg capsule 1 cap inhalation DAILY 05/11/22 06/01/22 06/01/22 History with inhalation device (Spiriva with HandiHaler) omeprazole 20 mg capsule,delayed 20 mg PO DAILY@0630 06/01/22 06/01/22 06/01/22 History release Physical Exam Vital Signs: Vital Signs: Last Vital Signs Temp 98.0 F 06/02/22 15:06 Pulse 80 06/02/22 15:06 Resp 18 06/02/22 15:06 BP 106/59 L 06/02/22 15:06 Pulse Ox 93 06/02/22 15:06 O2 Del Method 06/02/22 15:06 O2 Flow Rate 5 06/02/22 15:06 Const: Other: Patient is grossly obese, she is sleeping at this time in supine position, has O2 by nasal cannula in place . General: comfortable, no acute distress, alert and awake Orientation/consciousness: patient oriented x3 HEENT: Other: Could not be examined Head: Yes normal to inspection Mouth: oropharynx normal Eyes: General: appearance normal, both eyes and all related structures Neck: Neck: Yes normal visual inspection, Yes no lymphadenopathy, Yes trachea midline and Yes no JVD Thyroid: Thyroid normal Chest: Chest palpation & inspection: normal inspection of the chest, normal palpation of entire chest wall and no tenderness Resp: Other: Percussion note not perceptible. Breath sounds are distant with prolonged expiratory phase. No definite wheezes or crepitations are heard. Cardio: Palpation: normal PMI Rate: regular rate Rhythm: regular rhythm Heart sounds: no gallops and no murmurs GI: Palpation (GI): Soft to palpation, Tenderness to palpation present (GI), No hepatosplenomegaly present and Palpable mass present Auscultation: normal bowel sounds Back/Spine/Pelvis: Thoracic/Lumbar Spine: thoracic and lumbar spine normal to inspection Skin: General skin exam: no rashes or lesions noted Neuro: General: patient oriented x3 and no focal motor deficits Cranial nerves: Yes CN's II-XII intact bilaterally Extrem: General: Yes normal to inspection, Yes no clubbing, cyanosis or edema and Yes no calf tenderness Psych: Speech and movement: Normal speech and movement present Results Laboratory Findings CBC and BMP: 06/02/22 10:01 06/02/22 10:01 Abnormal lab findings: Abnormal Labs 06/02/22 10:01 Random Glucose 118 H Diagnostic Findings Chest x-ray: report reviewed and image reviewed Assessment and Plan (1) COVID-19: Status: Acute (2) Bipolar I disorder: Status: Acute (3) Asthma-COPD overlap syndrome: Status: Acute (4) FABIOLA (obstructive sleep apnea): Status: Acute Plan This patient with pre-existing gross obesity, obstructive sleep apnea, asthma/ COPD overlap syndrome, Now has active COVID-19 infection. She has become come hypoxic so must be some degree of respiratory distress. Chest x-ray is grossly normal at this time. And she is doing fairly well with oxygen by nasal cannula at 5 L/minute. Recc : Treat with IV dexamethasone 6 mg q.12 hours for 10 days. DuoNeb updrafts Q 6 hours while awake. O2 by nasal cannula to keep O2 sat above 90%, but if she has increased respiratory distress, consider high-flow O2. If her hypoxemia progresses then I would suggest doing his CT scan of the chest. Continue to use CPAP at night, with her previous regular settings, Thank you very much for asthma to see this patient. Procedures Date of Service Date of Service: 06/02/22
--- NOTE | 2022-06-02 15:56 | P.PNIM_ITS ---
Subjective Subjective Date of Service: 06/02/22 Interval History: Noted to have hypoxia overnight with finger oximetry of 81%, used CPAP at night, this morning doing well denies shortness of breath, no chest pain,no palpitations no other acute issues overnight. Review of Systems Review of Systems: Yes all other systems are reviewed and are negative Physical Exam Vital Signs: Vital Signs: Last Vital Signs Temp 98.0 F 06/02/22 15:06 Pulse 80 06/02/22 15:06 Resp 18 06/02/22 15:06 BP 106/59 L 06/02/22 15:06 Pulse Ox 93 06/02/22 15:06 O2 Del Method 06/02/22 15:06 O2 Flow Rate 5 06/02/22 15:06 Const: Other: General awake alert x 3, resting comfortably in no acute distress. Neck supple no JVD. CVS regular rate rhythm, Respiratory lungs clear to auscultation, no respiratory distress,occasional wheeze, no rhonchi. Gastrointestinal abdomen soft, nontender, bowel sounds audible,no guarding , no rigidity. Extremities no edema. Neuro nonfocal, moving all 4 extremity, speech clear. Skin no rash Objective Data Active Medications Acetaminophen (Acetaminophen 325 Mg Tablet) 650 mg PO Q6H PRN PRN Reason: Headache/Pain Mild Scale (1-3) Al Hydroxide/Mg Hydroxide (Magnesium Hydrox/Alum Hydrox 30 Ml Oral.Susp) 30 ml PO Q6H PRN PRN Reason: Heartburn/Nausea Albuterol Sulfate (Albuterol Sulfate (0.083%) 2.5 Mg/3 Ml Vial.Neb) 2.5 mg INHALE RQ4H WHILE AWAKE [facility] Albuterol Sulfate (Albuterol Sulfate 90 Mcg 8 Gm Inhaler) 2 puff INHALE RQ4H PRN PRN Reason: shortness of breath or wheezing Benztropine Mesylate (Benztropine Mesylate 1 Mg Tablet) 1 mg PO BID [facility] Capsaicin (Capsaicin 0.025% Cream 60 Gm Tube) 1 appl TOPICAL TID PRN; Protocol PRN Reason: b/l leg pain Clonidine HCl (Clonidine Hcl 0.2 Mg Tablet) 0.2 mg PO BEDTIME TEJA; Protocol Clonidine HCl (Clonidine Hcl 0.1 Mg Tablet) 0.1 mg PO TID PRN; Protocol PRN Reason: hyperarousal, anxiety Cyanocobalamin (Cyanocobalamin (Vitamin B-12) 100 Mcg Tablet) 100 mcg PO DAILY [facility] Dexamethasone Sodium Phosphate (Dexamethasone Sod Phosphate 4 Mg/Ml Vial) 6 mg IVPUSH DAILY [facility] Enoxaparin Sodium (Enoxaparin Sodium 40 Mg/0.4 Ml Syringe) 40 mg SUBCUT Q24H [facility] Last Admin: 06/02/22 12:59 Dose: Not Given Documented By: RIGO Non-Admin Reason: pt Unavailable Ferrous Sulfate (Ferrous Sulfate 324 Mg Tablet.) 324 mg PO DAILY [facility] Gabapentin (Gabapentin 600 Mg Tablet) 600 mg PO TID [facility] Guaifenesin/Dextromethorphan (Guaifenesin Dm 100/10/5 Ml 5 Ml Syrup) 5 ml PO Q6H PRN PRN Reason: cough Remdesivir 100 mg/ Sodium (Chloride) 230 mls @ 115 mls/hr IV Q24H [facility] Stop: 06/06/22 10:59 [place] Carbonate ([place] Carbonate 300 Mg Capsule) 600 mg PO BID [facility] Magnesium Hydroxide (Milk Of Magnesia 30 Ml Oral.Susp) 30 ml PO DAILY PRN PRN Reason: Constipation Nicotine (Nicotine 21 Mg Patch.Td24) 21 mg TRANSDERMA DAILY [facility] Nicotine Polacrilex (Nicotine Polacrilex 2 Mg Gum) 4 mg BUCCAL Q1H PRN PRN Reason: Nicotine Cravings Nitroglycerin (Nitroglycerin 0.4 Mg Tab.Subl) 0.4 mg SUBLINGUAL Q5MX3 PRN PRN Reason: Chest Pain Olanzapine (Olanzapine 5 Mg Tablet) 5 mg PO TID PRN PRN Reason: anxiety, agitation Olanzapine (Olanzapine 10 Mg Tablet) 10 mg PO BEDTIME [facility] Omeprazole (Omeprazole 20 Mg Capsule.) 20 mg PO DAILY@0630 [facility] Ondansetron HCl (Ondansetron Hcl 4 Mg/2 Ml Vial) 4 mg IVPUSH Q8H PRN PRN Reason: Nausea and Vomiting Oxcarbazepine (Oxcarbazepine 150 Mg Tablet) 150 mg PO BID [facility] Pharmacy Consult (Consult Rx Perform Med Rec) 1 each MISCELLANE ONCE PRN PRN Reason: Consult order Ropinirole HCl (Ropinirole Hcl 0.5 Mg Tablet) 0.5 mg PO BEDTIME [facility] Sertraline HCl (Sertraline Hcl 50 Mg Tablet) 50 mg PO DAILY [facility] Sodium Chloride (0.9 % Sodium Chloride Flush 3 Ml Syringe) 3 ml IVFLUSH QSHIFT [facility] Last Admin: 06/02/22 12:57 Dose: 3 ml Documented By: RIGO Tiotropium [place] (Tiotropium [place] 18 Mcg Cap.W.Dev) 1 puff INHALE RDAILY [facility] Trazodone HCl (Trazodone Hcl 100 Mg Tablet) 200 mg PO BEDTIME PRN PRN Reason: insomnia Valacyclovir HCl (Valacyclovir Hcl 1,000 Mg Tablet) 1,000 mg PO BID [facility] Labs CBC & Chem 7: 06/02/22 10:01 06/02/22 10:01 Labs: Laboratory Results - last 24 hr 06/01/22 06/01/22 06/01/22 18:40 18:40 18:40 MCV 93.5 MCH 30.3 MCHC 32.4 RDW 12.7 Plt Count 281 MPV 10.1 Immature Gran % (Auto) Neut % (Auto) Lymph % (Auto) Iron % (Auto) Eos % (Auto) Baso % (Auto) Lymph # (Auto) Iron # (Auto) Eos # (Auto) Baso # (Auto) Abs Immat Gran (auto) Absolute Neuts (auto) Absolute Nucleated RBC 0.000 Nucleated RBC % (auto) 0.0 APTT Anion Gap 15 Estim Creat Clear Calc TNP Estimated GFR > 60 Random Glucose 85 Lactic Acid 0.8 Calcium 10.0 Ferritin 51 Procalcitonin 06/01/22 06/01/22 06/02/22 18:40 18:40 10:01 MCV 93.8 MCH 29.6 MCHC 31.6 RDW 12.9 Plt Count 225 MPV 10.2 Immature Gran % (Auto) 0.2 Neut % (Auto) 65.7 Lymph % (Auto) 25.7 Iron % (Auto) 7.6 Eos % (Auto) 0.2 Baso % (Auto) 0.6 Lymph # (Auto) 1.4 Iron # (Auto) 0.4 Eos # (Auto) 0.0 Baso # (Auto) 0.0 Abs Immat Gran (auto) 0.01 Absolute Neuts (auto) 3.5 Absolute Nucleated RBC 0.000 Nucleated RBC % (auto) 0.0 APTT 34.2 Anion Gap Estim Creat Clear Calc Estimated GFR Random Glucose Lactic Acid Calcium Ferritin Procalcitonin 0.05 06/02/22 06/02/22 10:01 10:01 MCV MCH MCHC RDW Plt Count MPV Immature Gran % (Auto) Neut % (Auto) Lymph % (Auto) Iron % (Auto) Eos % (Auto) Baso % (Auto) Lymph # (Auto) Iron # (Auto) Eos # (Auto) Baso # (Auto) Abs Immat Gran (auto) Absolute Neuts (auto) Absolute Nucleated RBC Nucleated RBC % (auto) APTT 32.7 Anion Gap 13 Estim Creat Clear Calc TNP Estimated GFR 40 Random Glucose 118 H Lactic Acid Calcium 9.2 D Ferritin Procalcitonin Assessment and Plan (1) COVID-19: Status: Acute (2) Acute respiratory failure with hypoxia: Status: Acute Plan 52-year-old woman initially admitted to for Behavioral Health.? She developed fever, weakness, shortness of breath, diaphoresis and had a fall last evening.? She was subsequently tested for COVID-19 and was positive today.? Plan was for transfer from to medical floor for monitoring and treatment Sepsis secondary to COVID-19 virus Admitted with Fever, tachycardia Lactic acid is normal, COVID markers ferritin is 51 and procalcitonin 0.05 Will add iv Decadron, and remdesivir due to hypoxia Continue O2 support Mental health-bipolar disorder, PTSD Continue her usual medications Will return to once medically clear continue treatment Acute hypoxic respiratory failure due to COVID-19 and obstructive sleep apnea Treatment as above will obtain CTA chest, continue supportive care and wean oxygen as tolerated Continue FABIOLA History of neoplasm of parotid gland According to psychiatric provider patient has not followed up She should follow up as outpatient with her primary care doctor Asthma history of mild persistent asthma.? No acute exacerbation Continue as needed albuterol, Spiriva and Decadron Substance abuse/suicidal ideation History of cocaine use, continue sitter Was being followed at psych, will discharge to psych once medically stable Anemia Continue iron supplementation DVT prophylaxis with Lovenox Full code Patient will require continued inpatient stay due to hypoxic respiratory failure due to sepsis secondary to COVID-19 virus requiring IV steroids and oxygen therapy. Quality Stroke Does the patient have a stroke diagnosis?: No VTE Prior VTE?: No VTE Risk Level:: Medical - moderate - high VTE Device Contraindication: Treatment Not Indicated VTE Drug Contraindication: N/A - Med Ordered
[2022-06-02] MEDS: iohexoL 350 MG/ML 100 ML INFUS..BTL IV (16:07)
[2022-06-02] MEDS: Gabapentin 600 MG TABLET PO ×2 (16:55→21:28)
[2022-06-02 18:43] VITALS: BP 108/65; PULSE 73; RESP 22; TEMP 36.6; O2SAT 93
[2022-06-02 19:03] VITALS: BP 111/64; PULSE 70; RESP 18; TEMP 36.7; O2SAT 95
[2022-06-02] MEDS: Albuterol Sulfate (0.083%) 2.5 MG/3 ML VIAL.NEB INHALE (20:16)
[2022-06-02 20:18] VITALS: PULSE 70; RESP 16; O2SAT 97
[2022-06-02] MEDS: valACYclovir HCL 1,000 MG TABLET 1000 MG PO (21:28)
[2022-06-02] MEDS: cloNIDine HCL 0.2 MG TABLET PO (21:29)
[2022-06-02] MEDS: Benztropine Mesylate 1 MG TABLET PO (21:29)
[2022-06-02] MEDS: Lithium Carbonate 300 MG CAPSULE 600 MG PO (21:29)
[2022-06-02] MEDS: rOPINIRole HCL 0.5 MG TABLET PO (21:29)
[2022-06-02] MEDS: OXcarbazepine 150 MG TABLET PO (21:29)
[2022-06-02] MEDS: OLANZapine 10 MG TABLET PO (21:33)
[2022-06-02] MEDS: guaiFENesin DM 100/10/5 ML 5 ML SYRUP PO (21:33)
[2022-06-02 23:32] VITALS: BP 99/58; PULSE 56; RESP 16; TEMP 36.8; O2SAT 93
[2022-06-03] VITALS (9 sets, daily range): BP systolic 91–114; BP diastolic 58–70; PULSE 54–88; RESP 16–20; TEMP 36.1–36.8; O2SAT 91–98
[2022-06-03] MEDS: Omeprazole 20 MG CAPSULE.DR PO (05:41)
[2022-06-03] MEDS: Albuterol Sulfate (0.083%) 2.5 MG/3 ML VIAL.NEB INHALE ×3 (08:41→19:59)
[2022-06-03] MEDS: Remdesivir 100 MG in 0.9 % Sodium Chloride 230 ML 115 MG IV (09:50)
[2022-06-03] MEDS: Nicotine 21 MG PATCH.TD24 TRANSDERMA (09:51)
[2022-06-03] MEDS: Lithium Carbonate 300 MG CAPSULE 600 MG PO ×2 (09:52→21:34)
[2022-06-03] MEDS: Benztropine Mesylate 1 MG TABLET PO ×2 (09:52→21:33)
[2022-06-03] MEDS: Cyanocobalamin (Vitamin B-12) 100 MCG TABLET PO (09:53)
[2022-06-03] MEDS: Sertraline HCL 50 MG TABLET PO (09:53)
[2022-06-03] MEDS: Ferrous Sulfate 324 MG TABLET.DR PO (09:53)
[2022-06-03] MEDS: valACYclovir HCL 1,000 MG TABLET 1000 MG PO ×2 (09:53→21:34)
[2022-06-03] MEDS: Gabapentin 600 MG TABLET PO ×3 (09:53→21:34)
[2022-06-03] MEDS: dexAMETHasone sod phosphate 4 MG/ML VIAL 6 MG IVPUSH (09:54)
[2022-06-03] MEDS: 0.9 % Sodium Chloride Flush 3 ML SYRINGE IVFLUSH ×3 (09:55→21:34)
[2022-06-03] MEDS: guaiFENesin DM 100/10/5 ML 5 ML SYRUP PO ×2 (10:29→21:33)
[2022-06-03] MEDS: OXcarbazepine 150 MG TABLET PO ×2 (10:31→21:33)
--- NOTE | 2022-06-03 11:02 | HO.PM.IMPN ---
Subjective Subjective Date of Service: 06/03/22 Interval History: Complaining cough, shortness of breath, decrease hearing, continued to feel depressed and wishes to return to after medically stable no acute overnight events, oxygenation stable on 5 L, tolerating CPAP at night for obstructive sleep apnea, no fevers no chills no nausea vomiting Review of Systems Review of Systems: Yes all other systems are reviewed and are negative Physical Exam Vital Signs: Vital Signs: Last Vital Signs Temp 98.2 F 06/03/22 08:00 Pulse 61 06/03/22 08:44 Resp 16 06/03/22 08:44 BP 114/70 06/03/22 08:00 Pulse Ox 96 06/03/22 08:00 O2 Del Method 06/03/22 08:00 O2 Flow Rate 5 06/03/22 08:00 Const: Other: General awake alert x 3, sitting comfortably in no acute distress.? Neck supple no JVD. CVS? regular rate rhythm, Respiratory lungs bilateral expiratory wheeze , no respiratory distress, no crackles Gastrointestinal abdomen soft, nontender, bowel sounds audible,no guarding , no rigidity. Extremities no edema. Neuro nonfocal, moving all 4 extremity, speech clear. Skin no rash Psych appropriate affect Objective Data Active Medications Acetaminophen (Acetaminophen 325 Mg Tablet) 650 mg PO Q6H PRN PRN Reason: Headache/Pain Mild Scale (1-3) Al Hydroxide/Mg Hydroxide (Magnesium Hydrox/Alum Hydrox 30 Ml Oral.Susp) 30 ml PO Q6H PRN PRN Reason: Heartburn/Nausea Albuterol Sulfate (Albuterol Sulfate (0.083%) 2.5 Mg/3 Ml Vial.Neb) 2.5 mg INHALE RQ4H WHILE AWAKE [facility] Last Admin: 06/03/22 08:41 Dose: 2.5 mg Documented By: SCOVIANUP Albuterol Sulfate (Albuterol Sulfate 90 Mcg 8 Gm Inhaler) 2 puff INHALE RQ4H PRN PRN Reason: shortness of breath or wheezing Benztropine Mesylate (Benztropine Mesylate 1 Mg Tablet) 1 mg PO BID [facility] Last Admin: 06/03/22 09:52 Dose: 1 mg Documented By: CTORRIsela Capsaicin (Capsaicin 0.025% Cream 60 Gm Tube) 1 appl TOPICAL TID PRN; Protocol PRN Reason: b/l leg pain Clonidine HCl (Clonidine Hcl 0.2 Mg Tablet) 0.2 mg PO BEDTIME [facility]; Protocol Last Admin: 06/02/22 21:29 Dose: 0.2 mg Documented By: IVON Clonidine HCl (Clonidine Hcl 0.1 Mg Tablet) 0.1 mg PO TID PRN; Protocol PRN Reason: hyperarousal, anxiety Cyanocobalamin (Cyanocobalamin (Vitamin B-12) 100 Mcg Tablet) 100 mcg PO DAILY [facility] Last Admin: 06/03/22 09:53 Dose: 100 mcg Documented By: LORETO Dexamethasone Sodium Phosphate (Dexamethasone Sod Phosphate 4 Mg/Ml Vial) 6 mg IVPUSH DAILY [facility] Last Admin: 06/03/22 09:54 Dose: 6 mg Documented By: LORETO Doxycycline Hyclate (Doxycycline Hyclate 100 Mg Tablet) 100 mg PO Q12H [facility] Last Admin: 06/03/22 09:53 Dose: 100 mg Documented By: LOERTO Enoxaparin Sodium (Enoxaparin Sodium 40 Mg/0.4 Ml Syringe) 40 mg SUBCUT Q24H [facility] Last Admin: 06/02/22 16:52 Dose: Not Given Documented By: RIGO Non-Admin Reason: Patient Refused Ferrous Sulfate (Ferrous Sulfate 324 Mg Tablet.) 324 mg PO DAILY [facility] Last Admin: 06/03/22 09:53 Dose: 324 mg Documented By: LORETO Gabapentin (Gabapentin 600 Mg Tablet) 600 mg PO TID [facility] Last Admin: 06/03/22 09:53 Dose: 600 mg Documented By: LORETO Guaifenesin/Dextromethorphan (Guaifenesin Dm 100/10/5 Ml 5 Ml Syrup) 5 ml PO Q6H PRN PRN Reason: cough Last Admin: 06/03/22 10:29 Dose: 5 ml Documented By: LORETO Remdesivir 100 mg/ Sodium (Chloride) 230 mls @ 115 mls/hr IV Q24H [facility] Stop: 06/06/22 10:59 Last Admin: 06/03/22 09:50 Dose: 115 mls/hr Documented By: LORETO [place] Carbonate ([place] Carbonate 300 Mg Capsule) 600 mg PO BID [facility] Last Admin: 06/03/22 09:52 Dose: 600 mg Documented By: LORETO Magnesium Hydroxide (Milk Of Magnesia 30 Ml Oral.Susp) 30 ml PO DAILY PRN PRN Reason: Constipation Nicotine (Nicotine 21 Mg Patch.Td24) 21 mg TRANSDERMA DAILY [facility] Last Admin: 06/03/22 09:51 Dose: 21 mg Documented By: LORETO Nicotine Polacrilex (Nicotine Polacrilex 2 Mg Gum) 4 mg BUCCAL Q1H PRN PRN Reason: Nicotine Cravings Nitroglycerin (Nitroglycerin 0.4 Mg Tab.Subl) 0.4 mg SUBLINGUAL Q5MX3 PRN PRN Reason: Chest Pain Olanzapine (Olanzapine 5 Mg Tablet) 5 mg PO TID PRN PRN Reason: anxiety, agitation Olanzapine (Olanzapine 10 Mg Tablet) 10 mg PO BEDTIME [facility] Last Admin: 06/02/22 21:33 Dose: 10 mg Documented By: IVON Omeprazole (Omeprazole 20 Mg Capsule.Dr) 20 mg PO DAILY@0630 [facility] Last Admin: 06/03/22 05:41 Dose: 20 mg Documented By: IVON Ondansetron HCl (Ondansetron Hcl 4 Mg/2 Ml Vial) 4 mg IVPUSH Q8H PRN PRN Reason: Nausea and Vomiting Oxcarbazepine (Oxcarbazepine 150 Mg Tablet) 150 mg PO BID [facility] Last Admin: 06/03/22 10:31 Dose: 150 mg Documented By: LORETO Pharmacy Consult (Consult Rx Perform Med Rec) 1 each MISCELLANE ONCE PRN PRN Reason: Consult order Ropinirole HCl (Ropinirole Hcl 0.5 Mg Tablet) 0.5 mg PO BEDTIME [facility] Last Admin: 06/02/22 21:29 Dose: 0.5 mg Documented By: IVON Sertraline HCl (Sertraline Hcl 50 Mg Tablet) 50 mg PO DAILY [facility] Last Admin: 06/03/22 09:53 Dose: 50 mg Documented By: LORETO Sodium Chloride (0.9 % Sodium Chloride Flush 3 Ml Syringe) 3 ml IVFLUSH QSHIFT [facility] Last Admin: 06/03/22 09:55 Dose: 3 ml Documented By: LORETO Tiotropium [place] (Tiotropium [place] 18 Mcg Cap.W.Dev) 1 puff INHALE RDAILY [facility] Trazodone HCl (Trazodone Hcl 100 Mg Tablet) 200 mg PO BEDTIME PRN PRN Reason: insomnia Valacyclovir HCl (Valacyclovir Hcl 1,000 Mg Tablet) 1,000 mg PO BID [facility] Last Admin: 06/03/22 09:53 Dose: 1,000 mg Documented By: LORETO Labs CBC & Chem 7: 06/02/22 10:01 06/02/22 10:01 Labs: Laboratory Results - last 24 hr 06/02/22 10:01 Anion Gap 13 Estim Creat Clear Calc TNP Estimated GFR 40 Random Glucose 118 H Calcium 9.2 D Assessment and Plan (1) COVID-19: Status: Acute (2) Acute respiratory failure with hypoxia: Status: Acute Plan 52-year-old woman initially admitted to for Behavioral Health.? She developed fever, weakness, shortness of breath, diaphoresis and had a fall last evening.? She was subsequently tested for COVID-19 and was positive today.? Plan was for transfer from to medical floor for monitoring and treatment Sepsis secondary to COVID-19 virus Admitted with Fever, tachycardia, all symptoms of sepsis resolved Lactic acid is normal, COVID markers ferritin 51 and procalcitonin 0.05 Continue iv Decadron, day 2/10 and remdesivir day 2 Continue O2 support , wean oxygen as tolerated Acute hypoxic respiratory failure due to COVID-19, left base pneumonia and obstructive sleep apnea Treatment as above, CTA chest showed no PE, showed left base infiltrate,wean oxygen as tolerated Will add doxycycline to cover infection Continue CPAP Seen by Dr. Garcia he agrees with current treatment Mental health-bipolar disorder, PTSD Continue home medications Will return to once medically clear continue treatment History of neoplasm of parotid gland Recommend outpatient follow-up with primary care doctor Asthma history of mild persistent asthma.? No acute exacerbation Continue as needed albuterol, Spiriva and Decadron Substance abuse/suicidal ideation History of cocaine use, continue sitter Was being followed at psych, will discharge to psych once medically stable Anemia Continue iron supplementation DVT prophylaxis with Lovenox Full code Patient will require continued inpatient stay due to hypoxic respiratory failure due to sepsis secondary to COVID-19 virus requiring IV steroids and oxygen therapy. Quality Stroke Does the patient have a stroke diagnosis?: No VTE Prior VTE?: No VTE Risk Level:: Medical - moderate - high VTE Device Contraindication: Treatment Not Indicated VTE Drug Contraindication: N/A - Med Ordered
[2022-06-03] MEDS: rOPINIRole HCL 0.5 MG TABLET PO (21:33)
[2022-06-03] MEDS: OLANZapine 10 MG TABLET PO (21:33)
[2022-06-03] MEDS: cloNIDine HCL 0.2 MG TABLET PO (21:33)
[2022-06-04] VITALS (8 sets, daily range): BP systolic 115–138; BP diastolic 60–75; PULSE 54–88; RESP 18–21; TEMP 36.2–37; O2SAT 93–98
[2022-06-04] MEDS: Omeprazole 20 MG CAPSULE.DR PO (05:33)
[2022-06-04] MEDS: Albuterol Sulfate (0.083%) 2.5 MG/3 ML VIAL.NEB INHALE ×2 (07:54→11:17)
[2022-06-04] MEDS: 0.9 % Sodium Chloride Flush 3 ML SYRINGE IVFLUSH ×3 (10:59→20:58)
[2022-06-04] MEDS: Nicotine 21 MG PATCH.TD24 TRANSDERMA (11:02)
[2022-06-04] MEDS: dexAMETHasone sod phosphate 4 MG/ML VIAL 6 MG IVPUSH (11:03)
[2022-06-04] MEDS: Benztropine Mesylate 1 MG TABLET PO ×2 (11:04→20:58)
[2022-06-04] MEDS: Cyanocobalamin (Vitamin B-12) 100 MCG TABLET PO (11:04)
[2022-06-04] MEDS: Lithium Carbonate 300 MG CAPSULE 600 MG PO ×2 (11:04→20:57)
[2022-06-04] MEDS: valACYclovir HCL 1,000 MG TABLET 1000 MG PO ×2 (11:05→20:57)
[2022-06-04] MEDS: Ferrous Sulfate 324 MG TABLET.DR PO (11:05)
[2022-06-04] MEDS: OXcarbazepine 150 MG TABLET PO ×2 (11:05→20:58)
[2022-06-04] MEDS: Gabapentin 600 MG TABLET PO ×3 (11:05→20:57)
[2022-06-04] MEDS: Sertraline HCL 50 MG TABLET PO (11:05)
[2022-06-04] MEDS: guaiFENesin DM 100/10/5 ML 5 ML SYRUP PO (11:20)
[2022-06-04] MEDS: Remdesivir 100 MG in 0.9 % Sodium Chloride 230 ML 115 MG IV (11:24)
--- NOTE | 2022-06-04 12:00 | P.PNIM_ITS ---
Subjective Subjective Date of Service: 06/04/22 Interval History: Feeling better complaining of persistent dry cough, denies wheezing denies worsening shortness of breath, no fevers, no chills feels cold, no acute events overnight. Review of Systems [employer] no headache no dizziness CVS no chest pain, no palpitation GI no nausea, no vomiting Review of Systems: Yes all other systems are reviewed and are negative Physical Exam Vital Signs: Vital Signs: Last Vital Signs Temp 97.8 F 06/04/22 11:24 Pulse 62 06/04/22 11:24 Resp 19 06/04/22 11:24 BP 138/70 06/04/22 11:24 Pulse Ox 95 06/04/22 11:24 O2 Del Method 06/04/22 11:24 O2 Flow Rate 5 06/04/22 11:24 Const: Other: General awake alert x 3, sitting comfortably in no acute distress.? Neck supple no JVD. CVS? regular rate rhythm, Respiratory lungs clear bilaterally , no respiratory distress, no crackles Gastrointestinal abdomen soft, nontender, bowel sounds audible,no guarding , no rigidity. Localize growth below left earlobe, nontender, unchanged since admission Extremities no edema. Neuro nonfocal, moving all 4 extremity, speech clear. Skin no rash Psych appropriate affect Objective Data Active Medications Acetaminophen (Acetaminophen 325 Mg Tablet) 650 mg PO Q6H PRN PRN Reason: Headache/Pain Mild Scale (1-3) Al Hydroxide/Mg Hydroxide (Magnesium Hydrox/Alum Hydrox 30 Ml Oral.Susp) 30 ml PO Q6H PRN PRN Reason: Heartburn/Nausea Albuterol Sulfate (Albuterol Sulfate (0.083%) 2.5 Mg/3 Ml Vial.Neb) 2.5 mg INHALE RQ4H WHILE AWAKE [facility] Last Admin: 06/04/22 11:17 Dose: 2.5 mg Documented By: MARIYA Albuterol Sulfate (Albuterol Sulfate 90 Mcg 8 Gm Inhaler) 2 puff INHALE RQ4H PRN PRN Reason: shortness of breath or wheezing Benztropine Mesylate (Benztropine Mesylate 1 Mg Tablet) 1 mg PO BID [facility] Last Admin: 06/04/22 11:04 Dose: 1 mg Documented By: LORETO Capsaicin (Capsaicin 0.025% Cream 60 Gm Tube) 1 appl TOPICAL TID PRN; Protocol PRN Reason: b/l leg pain Clonidine HCl (Clonidine Hcl 0.2 Mg Tablet) 0.2 mg PO BEDTIME [facility]; Protocol Last Admin: 06/03/22 21:33 Dose: 0.2 mg Documented By: TIO Clonidine HCl (Clonidine Hcl 0.1 Mg Tablet) 0.1 mg PO TID PRN; Protocol PRN Reason: hyperarousal, anxiety Cyanocobalamin (Cyanocobalamin (Vitamin B-12) 100 Mcg Tablet) 100 mcg PO DAILY [facility] Last Admin: 06/04/22 11:04 Dose: 100 mcg Documented By: LORETO Dexamethasone Sodium Phosphate (Dexamethasone Sod Phosphate 4 Mg/Ml Vial) 6 mg IVPUSH DAILY [facility] Last Admin: 06/04/22 11:03 Dose: 6 mg Documented By: LORETO Doxycycline Hyclate (Doxycycline Hyclate 100 Mg Tablet) 100 mg PO Q12H [facility] Last Admin: 06/04/22 11:05 Dose: 100 mg Documented By: LORETO Enoxaparin Sodium (Enoxaparin Sodium 40 Mg/0.4 Ml Syringe) 40 mg SUBCUT Q24H [facility] Last Admin: 06/03/22 17:31 Dose: Not Given Documented By: LORETO Non-Admin Reason: Patient Refused Ferrous Sulfate (Ferrous Sulfate 324 Mg Tablet.) 324 mg PO DAILY [facility] Last Admin: 06/04/22 11:05 Dose: 324 mg Documented By: LORETO Gabapentin (Gabapentin 600 Mg Tablet) 600 mg PO TID [facility] Last Admin: 06/04/22 11:05 Dose: 600 mg Documented By: LORETO Guaifenesin/Dextromethorphan (Guaifenesin Dm 100/10/5 Ml 5 Ml Syrup) 5 ml PO Q6H PRN PRN Reason: cough Last Admin: 06/04/22 11:20 Dose: 5 ml Documented By: LORETO Remdesivir 100 mg/ Sodium (Chloride) 230 mls @ 115 mls/hr IV Q24H [facility] Stop: 06/06/22 10:59 Last Admin: 06/04/22 11:24 Dose: 115 mls/hr Documented By: LORETO [place] Carbonate ([place] Carbonate 300 Mg Capsule) 600 mg PO BID [facility] Last Admin: 06/04/22 11:04 Dose: 600 mg Documented By: LORETO Magnesium Hydroxide (Milk Of Magnesia 30 Ml Oral.Susp) 30 ml PO DAILY PRN PRN Reason: Constipation Nicotine (Nicotine 21 Mg Patch.Td24) 21 mg TRANSDERMA DAILY [facility] Last Admin: 06/04/22 11:02 Dose: 21 mg Documented By: LORETO Nicotine Polacrilex (Nicotine Polacrilex 2 Mg Gum) 4 mg BUCCAL Q1H PRN PRN Reason: Nicotine Cravings Nitroglycerin (Nitroglycerin 0.4 Mg Tab.Subl) 0.4 mg SUBLINGUAL Q5MX3 PRN PRN Reason: Chest Pain Olanzapine (Olanzapine 5 Mg Tablet) 5 mg PO TID PRN PRN Reason: anxiety, agitation Olanzapine (Olanzapine 10 Mg Tablet) 10 mg PO BEDTIME [facility] Last Admin: 06/03/22 21:33 Dose: 10 mg Documented By: TIO Omeprazole (Omeprazole 20 Mg Capsule.Dr) 20 mg PO DAILY@0630 [facility] Last Admin: 06/04/22 05:33 Dose: 20 mg Documented By: TIO Ondansetron HCl (Ondansetron Hcl 4 Mg/2 Ml Vial) 4 mg IVPUSH Q8H PRN PRN Reason: Nausea and Vomiting Oxcarbazepine (Oxcarbazepine 150 Mg Tablet) 150 mg PO BID [facility] Last Admin: 06/04/22 11:05 Dose: 150 mg Documented By: LORETO Pharmacy Consult (Consult Rx Perform Med Rec) 1 each MISCELLANE ONCE PRN PRN Reason: Consult order Ropinirole HCl (Ropinirole Hcl 0.5 Mg Tablet) 0.5 mg PO BEDTIME [facility] Last Admin: 06/03/22 21:33 Dose: 0.5 mg Documented By: TIO Sertraline HCl (Sertraline Hcl 50 Mg Tablet) 50 mg PO DAILY [facility] Last Admin: 06/04/22 11:05 Dose: 50 mg Documented By: LORETO Sodium Chloride (0.9 % Sodium Chloride Flush 3 Ml Syringe) 3 ml IVFLUSH QSHIFT [facility] Last Admin: 06/04/22 10:59 Dose: 3 ml Documented By: LORETO Tiotropium [place] (Tiotropium [place] 18 Mcg Cap.W.Dev) 1 puff INHALE RDAILY [facility] Last Admin: 06/04/22 07:53 Dose: 1 puff Documented By: MARIYA Trazodone HCl (Trazodone Hcl 100 Mg Tablet) 200 mg PO BEDTIME PRN PRN Reason: insomnia Valacyclovir HCl (Valacyclovir Hcl 1,000 Mg Tablet) 1,000 mg PO BID [facility] Last Admin: 06/04/22 11:05 Dose: 1,000 mg Documented By: KARENORRIsela Labs CBC & Chem 7: 06/02/22 10:01 06/02/22 10:01 Assessment and Plan (1) COVID-19: Status: Acute (2) Acute respiratory failure with hypoxia: Status: Acute Plan 52-year-old woman initially admitted to for Behavioral Health.? She developed fever, weakness, shortness of breath, diaphoresis and had a fall last evening.? She was subsequently tested for COVID-19 and was positive today.? Plan was for transfer from to medical floor for monitoring and treatment Sepsis secondary to COVID-19 virus Admitted with Fever, tachycardia, all symptoms of sepsis resolved Lactic acid is normal, COVID markers ferritin 51 and procalcitonin 0.05 on iv Decadron, day 3 and remdesivir day 3/5 Continue O2 support , wean oxygen as tolerated Acute hypoxic respiratory failure due to COVID-19, left base pneumonia and obstructive sleep apnea Gradually improving less shortness of breath persistent cough, will add scheduled cough syrup Treatment as above, CTA chest showed no PE, showed left base infiltrate,wean oxygen as tolerated on doxycycline to cover infection Continue CPAP Seen by Dr. Garcia he agrees with current treatment Mental health-bipolar disorder, PTSD Continue home medications Will return to once medically clear continue treatment History of neoplasm of parotid gland Recommend outpatient follow-up with primary care doctor , has an appointment on June 09 for follow-up at [place] [facility] history of mild persistent asthma.? No acute exacerbation Continue as needed albuterol, Spiriva and Decadron Substance abuse/suicidal ideation History of cocaine use, continue sitter Was being followed at [facility], will discharge to [facility] once medically stable Anemia Continue iron supplementation DVT prophylaxis with Lovenox Full code Patient will require continued inpatient stay due to hypoxic respiratory failure due to sepsis secondary to COVID-19 virus requiring IV steroids and oxygen therapy. Quality Stroke Does the patient have a stroke diagnosis?: No VTE Prior VTE?: No VTE Risk Level:: Medical - moderate - high VTE Device Contraindication: Treatment Not Indicated VTE Drug Contraindication: N/A - Med Ordered
--- NOTE | 2022-06-04 12:56 | MHC.CM.PN ---
pt not ready for dc due to hypoxic failure secondary to covvid 19 pt need iv steroids
[2022-06-04] MEDS: guaiFENesin DM 100/10/5 ML 5 ML SYRUP 10 ML PO ×2 (15:13→20:58)
[2022-06-04] MEDS: rOPINIRole HCL 0.5 MG TABLET PO (20:57)
[2022-06-04] MEDS: OLANZapine 10 MG TABLET PO (20:58)
[2022-06-04] MEDS: cloNIDine HCL 0.2 MG TABLET PO (20:58)
[2022-06-05] VITALS (9 sets, daily range): BP systolic 100–135; BP diastolic 57–74; PULSE 61–72; RESP 14–69; TEMP 35.7–37; O2SAT 90–100
[2022-06-05] MEDS: Omeprazole 20 MG CAPSULE.DR PO (06:07)
[2022-06-05] MEDS: Albuterol Sulfate (0.083%) 2.5 MG/3 ML VIAL.NEB INHALE ×3 (07:32→19:27)
[2022-06-05] MEDS: Nicotine 21 MG PATCH.TD24 TRANSDERMA (08:21)
[2022-06-05] MEDS: OXcarbazepine 150 MG TABLET PO ×2 (08:21→20:00)
[2022-06-05] MEDS: Cyanocobalamin (Vitamin B-12) 100 MCG TABLET PO (08:21)
[2022-06-05] MEDS: Ferrous Sulfate 324 MG TABLET.DR PO (08:21)
[2022-06-05] MEDS: Lithium Carbonate 300 MG CAPSULE 600 MG PO ×2 (08:21→20:00)
[2022-06-05] MEDS: valACYclovir HCL 1,000 MG TABLET 1000 MG PO ×2 (08:21→20:00)
[2022-06-05] MEDS: Gabapentin 600 MG TABLET PO ×3 (08:21→20:00)
[2022-06-05] MEDS: Sertraline HCL 50 MG TABLET PO (08:22)
[2022-06-05] MEDS: 0.9 % Sodium Chloride Flush 3 ML SYRINGE IVFLUSH ×3 (08:22→20:04)
[2022-06-05] MEDS: dexAMETHasone sod phosphate 4 MG/ML VIAL 6 MG IVPUSH (08:22)
[2022-06-05] MEDS: Benztropine Mesylate 1 MG TABLET PO ×2 (08:22→20:01)
[2022-06-05] MEDS: Remdesivir 100 MG in 0.9 % Sodium Chloride 230 ML 115 MG IV (10:14)
[2022-06-05] MEDS: guaiFENesin DM 100/10/5 ML 5 ML SYRUP 10 ML PO ×4 (10:14→20:50)
--- NOTE | 2022-06-05 10:37 | HO.PM.IMPN ---
Subjective Subjective Date of Service: 06/05/22 Interval History: Feeling significantly better less shortness of breath and cough has been ambulating in room, no acute events overnight oxygenation stable. Review of Systems [employer]USTRI[employer] ENG no headache no dizziness CVS no chest pain no palpitation GI no nausea, no vomiting Review of Systems: Yes all other systems are reviewed and are negative Physical Exam Vital Signs: Vital Signs: Last Vital Signs Temp 97.9 F 06/05/22 08:00 Pulse 61 06/05/22 08:00 Resp 20 06/05/22 08:00 BP 117/66 06/05/22 08:00 Pulse Ox 93 06/05/22 08:00 O2 Del Method 06/05/22 08:00 O2 Flow Rate 2 06/05/22 04:00 Const: Other: General awake alert x 3, sitting comfortably in no acute distress.? Neck supple no JVD. CVS? regular rate rhythm, Respiratory lungs clear bilaterally , no respiratory distress, no crackles Gastrointestinal abdomen soft, nontender, bowel sounds audible,no guarding , no rigidity. Localize growth below left earlobe, nontender, unchanged since admission Extremities no edema. Neuro nonfocal, moving all 4 extremity, speech clear. Skin no rash Psych appropriate affect Objective Data Active Medications Acetaminophen (Acetaminophen 325 Mg Tablet) 650 mg PO Q6H PRN PRN Reason: Headache/Pain Mild Scale (1-3) Al Hydroxide/Mg Hydroxide (Magnesium Hydrox/Alum Hydrox 30 Ml Oral.Susp) 30 ml PO Q6H PRN PRN Reason: Heartburn/Nausea Albuterol Sulfate (Albuterol Sulfate (0.083%) 2.5 Mg/3 Ml Vial.Neb) 2.5 mg INHALE RQ4H WHILE AWAKE [facility] Last Admin: 06/05/22 07:32 Dose: 2.5 mg Documented By: KYRA Albuterol Sulfate (Albuterol Sulfate 90 Mcg 8 Gm Inhaler) 2 puff INHALE RQ4H PRN PRN Reason: shortness of breath or wheezing Benztropine Mesylate (Benztropine Mesylate 1 Mg Tablet) 1 mg PO BID [facility] Last Admin: 06/05/22 08:22 Dose: 1 mg Documented By: RIGO Capsaicin (Capsaicin 0.025% Cream 60 Gm Tube) 1 appl TOPICAL TID PRN; Protocol PRN Reason: b/l leg pain Clonidine HCl (Clonidine Hcl 0.2 Mg Tablet) 0.2 mg PO BEDTIME TEJA; Protocol Last Admin: 06/04/22 20:58 Dose: 0.2 mg Documented By: DENNIS Clonidine HCl (Clonidine Hcl 0.1 Mg Tablet) 0.1 mg PO TID PRN; Protocol PRN Reason: hyperarousal, anxiety Cyanocobalamin (Cyanocobalamin (Vitamin B-12) 100 Mcg Tablet) 100 mcg PO DAILY [facility] Last Admin: 06/05/22 08:21 Dose: 100 mcg Documented By: RIGO Dexamethasone Sodium Phosphate (Dexamethasone Sod Phosphate 4 Mg/Ml Vial) 6 mg IVPUSH DAILY [facility] Last Admin: 06/05/22 08:22 Dose: 6 mg Documented By: RIGO Doxycycline Hyclate (Doxycycline Hyclate 100 Mg Tablet) 100 mg PO Q12H [facility] Last Admin: 06/05/22 08:21 Dose: 100 mg Documented By: RIGO Enoxaparin Sodium (Enoxaparin Sodium 40 Mg/0.4 Ml Syringe) 40 mg SUBCUT Q24H [facility] Last Admin: 06/04/22 18:49 Dose: Not Given Documented By: CTORRIsela Non-Admin Reason: Patient Refused Ferrous Sulfate (Ferrous Sulfate 324 Mg Tablet.) 324 mg PO DAILY [facility] Last Admin: 06/05/22 08:21 Dose: 324 mg Documented By: RIGO Gabapentin (Gabapentin 600 Mg Tablet) 600 mg PO TID [facility] Last Admin: 06/05/22 08:21 Dose: 600 mg Documented By: RIGO Guaifenesin/Dextromethorphan (Guaifenesin Dm 100/10/5 Ml 5 Ml Syrup) 10 ml PO QID [facility] Last Admin: 06/05/22 10:14 Dose: 10 ml Documented By: RIGO Remdesivir 100 mg/ Sodium (Chloride) 230 mls @ 115 mls/hr IV Q24H [facility] Stop: 06/06/22 10:59 Last Admin: 06/05/22 10:14 Dose: 115 mls/hr Documented By: RIGO [place] Carbonate ([place] Carbonate 300 Mg Capsule) 600 mg PO BID [facility] Last Admin: 06/05/22 08:21 Dose: 600 mg Documented By: RIGO Magnesium Hydroxide (Milk Of Magnesia 30 Ml Oral.Susp) 30 ml PO DAILY PRN PRN Reason: Constipation Nicotine (Nicotine 21 Mg Patch.Td24) 21 mg TRANSDERMA DAILY [facility] Last Admin: 06/05/22 08:21 Dose: 21 mg Documented By: RIGO Nicotine Polacrilex (Nicotine Polacrilex 2 Mg Gum) 4 mg BUCCAL Q1H PRN PRN Reason: Nicotine Cravings Nitroglycerin (Nitroglycerin 0.4 Mg Tab.Subl) 0.4 mg SUBLINGUAL Q5MX3 PRN PRN Reason: Chest Pain Olanzapine (Olanzapine 5 Mg Tablet) 5 mg PO TID PRN PRN Reason: anxiety, agitation Olanzapine (Olanzapine 10 Mg Tablet) 10 mg PO BEDTIME [facility] Last Admin: 06/04/22 20:58 Dose: 10 mg Documented By: DENNIS Omeprazole (Omeprazole 20 Mg Capsule.Dr) 20 mg PO DAILY@0630 [facility] Last Admin: 06/05/22 06:07 Dose: 20 mg Documented By: DENNIS Ondansetron HCl (Ondansetron Hcl 4 Mg/2 Ml Vial) 4 mg IVPUSH Q8H PRN PRN Reason: Nausea and Vomiting Oxcarbazepine (Oxcarbazepine 150 Mg Tablet) 150 mg PO BID [facility] Last Admin: 06/05/22 08:21 Dose: 150 mg Documented By: RIGO Pharmacy Consult (Consult Rx Perform Med Rec) 1 each MISCELLANE ONCE PRN PRN Reason: Consult order Ropinirole HCl (Ropinirole Hcl 0.5 Mg Tablet) 0.5 mg PO BEDTIME [facility] Last Admin: 06/04/22 20:57 Dose: 0.5 mg Documented By: DENNIS Sertraline HCl (Sertraline Hcl 50 Mg Tablet) 50 mg PO DAILY [facility] Last Admin: 06/05/22 08:22 Dose: 50 mg Documented By: RIGO Sodium Chloride (0.9 % Sodium Chloride Flush 3 Ml Syringe) 3 ml IVFLUSH QSHIFT [facility] Last Admin: 06/05/22 08:22 Dose: 3 ml Documented By: RIGO Tiotropium [place] (Tiotropium [place] 18 Mcg Cap.W.Dev) 1 puff INHALE RDAILY [facility] Last Admin: 06/05/22 07:33 Dose: 1 puff Documented By: KYRA Trazodone HCl (Trazodone Hcl 100 Mg Tablet) 200 mg PO BEDTIME PRN PRN Reason: insomnia Valacyclovir HCl (Valacyclovir Hcl 1,000 Mg Tablet) 1,000 mg PO BID [facility] Last Admin: 06/05/22 08:21 Dose: 1,000 mg Documented By: RIGO Labs CBC & Chem 7: 06/02/22 10:01 06/02/22 10:01 Assessment and Plan (1) COVID-19: Status: Acute (2) Acute respiratory failure with hypoxia: Status: Acute Plan 52-year-old woman initially admitted to for [facility].? She developed fever, weakness, shortness of breath, diaphoresis and had a fall last evening.? She was subsequently tested for COVID-19 and was positive today.? Plan was for transfer from to medical floor for monitoring and treatment Sepsis secondary to COVID-19 virus Admitted with Fever, tachycardia, all symptoms of sepsis resolved Lactic acid is normal, COVID markers ferritin 51 and procalcitonin 0.05 on iv Decadron, day 02/07 and remdesivir day 4/ Acute hypoxic respiratory failure due to COVID-19, left base pneumonia and obstructive sleep apnea Gradually improving less shortness of breath persistent cough, will add scheduled cough syrup Treatment as above, CTA chest showed no PE, showed left base infiltrate on doxycycline to cover infection Continue CPAP/o2 improved Seen by Dr. Garcia he agrees with current treatment Mental health-bipolar disorder, PTSD Continue home medications Will return to once medically clear continue treatment History of neoplasm of parotid gland Recommend outpatient follow-up with primary care doctor , has an appointment on June 09 for follow-up at [place] [facility] history of mild persistent asthma.? No acute exacerbation Continue as needed albuterol, Spiriva and Decadron Substance abuse/suicidal ideation History of cocaine use, continue sitter Was being followed at psych, will discharge to psych once medically stable Anemia Continue iron supplementation DVT prophylaxis with Lovenox Full code Patient will require continued inpatient stay due to hypoxic respiratory failure due to sepsis secondary to COVID-19 virus requiring IV steroids /iv remdesivir and oxygen therapy. Quality Stroke Does the patient have a stroke diagnosis?: No VTE Prior VTE?: No VTE Risk Level:: Medical - moderate - high VTE Device Contraindication: Treatment Not Indicated VTE Drug Contraindication: N/A - Med Ordered
[2022-06-05] MEDS: cloNIDine HCL 0.2 MG TABLET PO (20:00)
[2022-06-05] MEDS: OLANZapine 10 MG TABLET PO (20:01)
[2022-06-05] MEDS: rOPINIRole HCL 0.5 MG TABLET PO (20:01)
[2022-06-06] VITALS (7 sets, daily range): BP systolic 110–144; BP diastolic 59–91; PULSE 60–76; RESP 14–20; TEMP 36.1–36.6; O2SAT 18–96
[2022-06-06] MEDS: Omeprazole 20 MG CAPSULE.DR PO (04:53)
[2022-06-06] MEDS: Acetaminophen 325 MG TABLET 650 MG PO ×2 (04:53→16:08)
[2022-06-06] MEDS: Lithium Carbonate 300 MG CAPSULE 600 MG PO ×2 (09:38→22:21)
[2022-06-06] MEDS: OXcarbazepine 150 MG TABLET PO ×2 (09:39→22:21)
[2022-06-06] MEDS: Cyanocobalamin (Vitamin B-12) 100 MCG TABLET PO (09:39)
[2022-06-06] MEDS: valACYclovir HCL 1,000 MG TABLET 1000 MG PO ×2 (09:39→22:21)
[2022-06-06] MEDS: Benztropine Mesylate 1 MG TABLET PO ×2 (09:39→22:21)
[2022-06-06] MEDS: Ferrous Sulfate 324 MG TABLET.DR PO (09:39)
[2022-06-06] MEDS: Gabapentin 600 MG TABLET PO ×3 (09:39→22:21)
[2022-06-06] MEDS: Sertraline HCL 50 MG TABLET PO (09:39)
[2022-06-06] MEDS: dexAMETHasone sod phosphate 4 MG/ML VIAL 6 MG IVPUSH (09:40)
[2022-06-06] MEDS: Nicotine 21 MG PATCH.TD24 TRANSDERMA (09:40)
[2022-06-06] MEDS: guaiFENesin DM 100/10/5 ML 5 ML SYRUP 10 ML PO ×4 (09:40→22:29)
[2022-06-06] MEDS: Remdesivir 100 MG in 0.9 % Sodium Chloride 230 ML 115 MG IV (09:41)
[2022-06-06] MEDS: 0.9 % Sodium Chloride Flush 3 ML SYRINGE IVFLUSH ×3 (09:58→22:22)
[2022-06-06] MEDS: Albuterol Sulfate (0.083%) 2.5 MG/3 ML VIAL.NEB INHALE ×2 (11:36→19:47)
--- NOTE | 2022-06-06 14:40 | HO.PM.IMPN ---
Subjective Subjective Date of Service: 06/06/22 Interval History: Feeling better, denies shortness of breath, persistent mild dry cough no fevers no chills no other acute issues overnight oxygenation remains stable on room air. Review of Systems [employer] no headache no dizziness CVS no chest pain no palpitation GI no nausea, no vomiting Review of Systems: Yes all other systems are reviewed and are negative Physical Exam Vital Signs: Vital Signs: Last Vital Signs Temp 97.3 F 06/06/22 11:33 Pulse 72 06/06/22 11:37 Resp 20 06/06/22 11:33 BP 136/91 H 06/06/22 11:33 Pulse Ox 93 06/06/22 11:33 O2 Del Method 06/06/22 11:33 O2 Flow Rate 2 06/05/22 04:00 Objective Data Active Medications Acetaminophen (Acetaminophen 325 Mg Tablet) 650 mg PO Q6H PRN PRN Reason: Headache/Pain Mild Scale (1-3) Last Admin: 06/06/22 04:53 Dose: 650 mg Documented By: SHAKIR Al Hydroxide/Mg Hydroxide (Magnesium Hydrox/Alum Hydrox 30 Ml Oral.Susp) 30 ml PO Q6H PRN PRN Reason: Heartburn/Nausea Albuterol Sulfate (Albuterol Sulfate (0.083%) 2.5 Mg/3 Ml Vial.Neb) 2.5 mg INHALE RQ4H WHILE AWAKE [facility] Last Admin: 06/06/22 11:36 Dose: 2.5 mg Documented By: MARIYA Albuterol Sulfate (Albuterol Sulfate 90 Mcg 8 Gm Inhaler) 2 puff INHALE RQ4H PRN PRN Reason: shortness of breath or wheezing Benztropine Mesylate (Benztropine Mesylate 1 Mg Tablet) 1 mg PO BID [facility] Last Admin: 06/06/22 09:39 Dose: 1 mg Documented By: ELKIN Capsaicin (Capsaicin 0.025% Cream 60 Gm Tube) 1 appl TOPICAL TID PRN; Protocol PRN Reason: b/l leg pain Clonidine HCl (Clonidine Hcl 0.2 Mg Tablet) 0.2 mg PO BEDTIME [facility]; Protocol Last Admin: 06/05/22 20:00 Dose: 0.2 mg Documented By: DENNIS Clonidine HCl (Clonidine Hcl 0.1 Mg Tablet) 0.1 mg PO TID PRN; Protocol PRN Reason: hyperarousal, anxiety Cyanocobalamin (Cyanocobalamin (Vitamin B-12) 100 Mcg Tablet) 100 mcg PO DAILY [facility] Last Admin: 06/06/22 09:39 Dose: 100 mcg Documented By: ELKIN Dexamethasone Sodium Phosphate (Dexamethasone Sod Phosphate 4 Mg/Ml Vial) 6 mg IVPUSH DAILY [facility] Last Admin: 06/06/22 09:40 Dose: 6 mg Documented By: ELKIN Doxycycline Hyclate (Doxycycline Hyclate 100 Mg Tablet) 100 mg PO Q12H [facility] Last Admin: 06/06/22 09:39 Dose: 100 mg Documented By: ELKIN Enoxaparin Sodium (Enoxaparin Sodium 40 Mg/0.4 Ml Syringe) 40 mg SUBCUT Q24H [facility] Last Admin: 06/05/22 17:49 Dose: Not Given Documented By: RIGO Non-Admin Reason: Patient Refused Ferrous Sulfate (Ferrous Sulfate 324 Mg Tablet.) 324 mg PO DAILY [facility] Last Admin: 06/06/22 09:39 Dose: 324 mg Documented By: ELKIN Gabapentin (Gabapentin 600 Mg Tablet) 600 mg PO TID [facility] Last Admin: 06/06/22 09:39 Dose: 600 mg Documented By: ELKIN Guaifenesin/Dextromethorphan (Guaifenesin Dm 100/10/5 Ml 5 Ml Syrup) 10 ml PO QID [facility] Last Admin: 06/06/22 09:40 Dose: 10 ml Documented By: ELKIN [place] Carbonate ([place] Carbonate 300 Mg Capsule) 600 mg PO BID [facility] Last Admin: 06/06/22 09:38 Dose: 600 mg Documented By: ELKIN Magnesium Hydroxide (Milk Of Magnesia 30 Ml Oral.Susp) 30 ml PO DAILY PRN PRN Reason: Constipation Nicotine (Nicotine 21 Mg Patch.Td24) 21 mg TRANSDERMA DAILY [facility] Last Admin: 06/06/22 09:40 Dose: 21 mg Documented By: ELKIN Nicotine Polacrilex (Nicotine Polacrilex 2 Mg Gum) 4 mg BUCCAL Q1H PRN PRN Reason: Nicotine Cravings Nitroglycerin (Nitroglycerin 0.4 Mg Tab.Subl) 0.4 mg SUBLINGUAL Q5MX3 PRN PRN Reason: Chest Pain Olanzapine (Olanzapine 5 Mg Tablet) 5 mg PO TID PRN PRN Reason: anxiety, agitation Olanzapine (Olanzapine 10 Mg Tablet) 10 mg PO BEDTIME [facility] Last Admin: 06/05/22 20:01 Dose: 10 mg Documented By: DENNIS Omeprazole (Omeprazole 20 Mg Capsule.Dr) 20 mg PO DAILY@0630 [facility] Last Admin: 06/06/22 04:53 Dose: 20 mg Documented By: SHAKIR Ondansetron HCl (Ondansetron Hcl 4 Mg/2 Ml Vial) 4 mg IVPUSH Q8H PRN PRN Reason: Nausea and Vomiting Oxcarbazepine (Oxcarbazepine 150 Mg Tablet) 150 mg PO BID [facility] Last Admin: 06/06/22 09:39 Dose: 150 mg Documented By: ELKIN Pharmacy Consult (Consult Rx Perform Med Rec) 1 each MISCELLANE ONCE PRN PRN Reason: Consult order Ropinirole HCl (Ropinirole Hcl 0.5 Mg Tablet) 0.5 mg PO BEDTIME [facility] Last Admin: 06/05/22 20:01 Dose: 0.5 mg Documented By: DENNIS Sertraline HCl (Sertraline Hcl 50 Mg Tablet) 50 mg PO DAILY [facility] Last Admin: 06/06/22 09:39 Dose: 50 mg Documented By: ELKIN Sodium Chloride (0.9 % Sodium Chloride Flush 3 Ml Syringe) 3 ml IVFLUSH QSHIFT [facility] Last Admin: 06/06/22 09:58 Dose: 3 ml Documented By: ELKIN Tiotropium [place] (Tiotropium [place] 18 Mcg Cap.W.Dev) 1 puff INHALE RDAILY [facility] Last Admin: 06/06/22 09:57 Dose: 1 puff Documented By: ELKIN Trazodone HCl (Trazodone Hcl 100 Mg Tablet) 200 mg PO BEDTIME PRN PRN Reason: insomnia Valacyclovir HCl (Valacyclovir Hcl 1,000 Mg Tablet) 1,000 mg PO BID [facility] Last Admin: 06/06/22 09:39 Dose: 1,000 mg Documented By: ELKIN Labs CBC & Chem 7: 06/02/22 10:01 06/02/22 10:01 Assessment and Plan (1) COVID-19: Status: Acute (2) Acute respiratory failure with hypoxia: Status: Acute Plan 52-year-old woman initially admitted to for Behavioral Health.? She developed fever, weakness, shortness of breath, diaphoresis and had a fall last evening.? She was subsequently tested for COVID-19 and was positive today.? Plan was for transfer from to medical floor for monitoring and treatment Sepsis secondary to COVID-19 virus Admitted with Fever, tachycardia, all symptoms of sepsis resolved Lactic acid is normal, COVID markers ferritin 51 and procalcitonin 0.05 on iv Decadron, day 03/09 and remdesivir day 03/04 Acute hypoxic respiratory failure due to COVID-19, left base pneumonia and obstructive sleep apnea Gradually improving less shortness of breath persistent cough, on scheduled cough syrup Treatment as above, CTA chest showed no PE, showed left base infiltrate on doxycycline to cover infection day02/02 Continue CPAP/o2 improved Seen by Dr. Garcia he agrees with current treatment Mental health-bipolar disorder, PTSD Continue home medications Will return to once medically clear continue treatment History of neoplasm of parotid gland Recommend outpatient follow-up with primary care doctor , has an appointment on June 09 for follow-up at [place] [facility] history of mild persistent asthma.? No acute exacerbation Continue as needed albuterol, Spiriva and Decadron Substance abuse/suicidal ideation History of cocaine use, continue sitter Was being followed at [facility], will discharge to [facility] once medically stable Anemia Continue iron supplementation DVT prophylaxis with Lovenox Full code Patient will require continued inpatient stay due to hypoxic respiratory failure due to sepsis secondary to COVID-19 virus requiring IV steroids /iv remdesivir and oxygen therapy. Quality Stroke Does the patient have a stroke diagnosis?: No VTE Prior VTE?: No VTE Risk Level:: Medical - moderate - high VTE Device Contraindication: Treatment Not Indicated VTE Drug Contraindication: N/A - Med Ordered
[2022-06-06] MEDS: Enoxaparin Sodium 40 MG/0.4 ML SYRINGE SUBCUT (16:09)
[2022-06-06] MEDS: rOPINIRole HCL 0.5 MG TABLET PO (22:21)
[2022-06-06] MEDS: cloNIDine HCL 0.2 MG TABLET PO (22:21)
[2022-06-06] MEDS: OLANZapine 10 MG TABLET PO (22:21)
[2022-06-07] VITALS: BP 163/73; PULSE 75; RESP 18; TEMP 37.1; O2SAT 96
[2022-06-07] MEDS: Acetaminophen 325 MG TABLET 650 MG PO (00:14)
--- NOTE | 2022-06-07 00:19 | PC.NURSE ---
Pt woke up out of sound sleep c/o left sided stabbing chest pain, non-radiating. Tylenol and hot packs given. Was reported to this RN that a full cardiac workup was done and it was determined to be muscle skeletal and to treat with Tylenol and hot packs. Will continue to monitor.
[2022-06-07 03:59] VITALS: BP 115/59; PULSE 61; RESP 20; TEMP 37.1; O2SAT 93
[2022-06-07] MEDS: Omeprazole 20 MG CAPSULE.DR PO (05:45)
[2022-06-07 08:00] VITALS: BP 121/66; PULSE 59; RESP 20; TEMP 36.7; O2SAT 96
[2022-06-07] MEDS: Lithium Carbonate 300 MG CAPSULE 600 MG PO (09:59)
[2022-06-07] MEDS: OXcarbazepine 150 MG TABLET PO (10:00)
[2022-06-07] MEDS: Sertraline HCL 50 MG TABLET PO (10:00)
[2022-06-07] MEDS: Nicotine 21 MG PATCH.TD24 TRANSDERMA (10:00)
[2022-06-07] MEDS: Benztropine Mesylate 1 MG TABLET PO (10:00)
[2022-06-07] MEDS: guaiFENesin DM 100/10/5 ML 5 ML SYRUP 10 ML PO ×2 (10:00→13:22)
[2022-06-07] MEDS: Gabapentin 600 MG TABLET PO (10:00)
[2022-06-07] MEDS: valACYclovir HCL 1,000 MG TABLET 1000 MG PO (10:00)
[2022-06-07] MEDS: Ferrous Sulfate 324 MG TABLET.DR PO (10:00)
[2022-06-07] MEDS: 0.9 % Sodium Chloride Flush 3 ML SYRINGE IVFLUSH (10:01)
[2022-06-07] MEDS: dexAMETHasone sod phosphate 4 MG/ML VIAL 6 MG IVPUSH (10:01)
[2022-06-07] MEDS: Cyanocobalamin (Vitamin B-12) 100 MCG TABLET PO (10:01)
[2022-06-07 12:00] VITALS: BP 110/59; PULSE 70; RESP 20; TEMP 36.1; O2SAT 95
--- NOTE | 2022-06-07 12:39 | MHC.CM.PN ---
Female covid+ [facility] is scheduled to see patient today. Decadron course for covid has been completed. Patient was intended for . She was sent to [facility] r/t Covid+ test. DP to be determined by [facility] assessment.
--- NOTE | 2022-06-07 13:52 | P.DS_ITS ---
DS: Providers Provider Date of Service: 06/07/22 Date of admission: 06/01/22 16:10 Primary care physician: Unknown Physician Consults: 06/02/22 11:47 Consult to Pulmonology Routine Consulting Provider: Emma Garcia Reason for consultation: hypoxia /covid Has provider been notified: No 06/07/22 10:56 [facility] [Consult to Crisis] Stat Reason for consultation: medically cleared/suicidal ideation Has provider been notified: No DS: Diagnosis Discharge Diagnosis (1) COVID-19: Status: Acute (2) Acute respiratory failure with hypoxia: Status: Acute DS: Summary Hospital Course Hospital Course: History of presenting illness. Chief Complaint: Shortness of breath 52-year-old woman admitted to for [facility] developed fever, shortness of breath, diaphoresis and had a fall last evening.? She subsequently had a COVID test and was positive.? Since the patient was noted to be hypoxic with oxygen saturation 87%,? it was prudent to transfer her to a medical floor for further observation and treatment. Hospital course 52-year-old woman initially admitted to for [facility].? She developed fever, weakness, shortness of breath, diaphoresis and had a fall last evening.? She was subsequently tested for COVID-19 and was positive today.? Plan was for transfer from to medical floor for monitoring and treatment Sepsis secondary to COVID-19 virus associated with acute hypoxic respiratory failure, left base pneumonia patient admitted with fever tachycardia, lactic acid was normal, COVID markers including ferritin and procalcitonin was low patient treated with doxycycline, IV Decadron and has finished course of IV remdesivir, all symptoms of sepsis have resolved patient is feeling significantly better currently on room air with finger oximetry 94% therefore being discharged home on 4 more days of Decadron to finish a total 10 day course of treatment she has recommended strongly to avoid smoking nicotine patch has been dispensed, she is recommended to rest and drink plenty of fluids. Patient was followed closely by employment legal assistant Dr. Garcia In regard to Mental health-bipolar disorder, PTSD patient was continued on all home medications she was evaluated did by [facility] and prior to discharge due to suicidal ideation they cleared the patient discharge home History of neoplasm of parotid gland Recommend outpatient follow-up with primary care doctor, patient has an appointment on June 09 for follow-up at [place] history of mild persistent asthma.? No acute exacerbation recommend to Continue as needed albuterol, Spiriva and Decadron Anemia Continue iron supplementation Time Spent with Patient Time attestation: Total time spent providing and/or coordinating discharge services: Discharge coordination time: Greater than 30 minutes Quality: Safe Use of Opioids Does Pt have an Active Cancer Diagnosis on the Problem List?: No Quality: Stroke Does the patient have a stroke diagnosis?: No Physical Exam Vital Signs: Vital Signs: Last Vital Signs Temp 97.0 F 06/07/22 12:00 Pulse 70 06/07/22 12:00 Resp 20 06/07/22 12:00 BP 110/59 L 06/07/22 12:00 Pulse Ox 95 06/07/22 12:00 O2 Del Method 06/07/22 12:00 O2 Flow Rate 2 06/05/22 04:00 Const: Other: General awake aler t x 3, sitting com fortably in no acu te distress.? Neck supple no JVD. CV S? regular rate rh ythm, Respiratory lungs clear bilate rally , no respira tory distress, no crackles Gastroint estinal abdomen so ft, non tender, bobbi wel sounds audible ,no guarding , no rigidity. Localize growth below left earlobe, non tend er, unchanged sinc e admission Extrem ities no edema. Ne uro non focal, mov ing all 4 extremit y, speech clear. S kin no rash Psych appropriate affect DS: Data Data Completed and Pending Completed studies during hospitalization [Text1]: Procedures Drainage of Left Parotid Gland, Percutaneous Approach, Diagnostic (11/09/21) Drainage of Neck, Percutaneous Approach, Diagnostic (03/17/22) Excision of Left Parotid Gland, Percutaneous Approach, Diagnostic (03/17/22) Discharge Plan Discharge Patient Disposition: Home Health Service Discharge Diagnosis: Acute hypoxic respiratory failure due to COVID-19 Sepsis secondary to COVID-19 Pneumonia Referrals: [facility] Crisis [Other] - 1 Week Physician,Unknown J [Primary Care Provider] - 1 Week Discharge Medications: New nicotine 21 mg/24 hr Patch 24 Hour 21 mg transdermal DAILY Qty: 30 0RF dexamethasone sodium phosphate 4 mg/mL Solution 6 mg PO DAILY Qty: 4 0RF Continued albuterol sulfate 90 mcg/actuation HFA aerosol inhaler 2 puff inhalation Q4-6H PRN (Reason: shortness of breath or wheezing) 30 Days Qty: 1 0RF Spiriva with HandiHaler 18 mcg capsule, w/inhalation device 1 cap inhalation DAILY capsaicin 0.025 % Cream 1 appl topical TID PRN (Reason: b/l leg pain) Qty: 0 0RF Protocol: Apply to: Apply to: b/l leg valacyclovir 1 gram tablet 1,000 mg PO BID 30 Days Qty: 60 0RF ferrous sulfate 324 mg (65 mg iron) tablet,delayed release (DR/EC) 324 mg PO DAILY 30 Days Qty: 30 0RF clonidine HCl 0.2 mg tablet 0.2 mg PO BEDTIME 30 Days Qty: 30 0RF benztropine 1 mg tablet 1 mg PO BID 30 Days Qty: 60 0RF nitroglycerin [Nitrostat] 0.4 mg Tablet, Sublingual 0.4 mg sublingual Q5MX3 PRN (Reason: Chest Pain) 30 Days Qty: 10 0RF olanzapine 10 mg tablet 10 mg PO BEDTIME 30 Days Qty: 30 0RF lithium carbonate 600 mg capsule 600 mg PO BID 30 Days Qty: 60 0RF gabapentin 600 mg tablet 600 mg PO TID 30 Days Qty: 90 0RF oxcarbazepine 150 mg tablet 150 mg PO BID 30 Days Qty: 60 0RF cyanocobalamin (vitamin B-12) 100 mcg tablet 100 mcg PO DAILY 30 Days Qty: 30 0RF trazodone 100 mg tablet 200 mg PO BEDTIME PRN (Reason: insomnia) 30 Days Qty: 60 0RF ropinirole 0.5 mg tablet 0.5 mg PO BEDTIME 30 Days Qty: 30 0RF sertraline 50 mg tablet 50 mg PO DAILY 30 Days Qty: 30 0RF omeprazole 20 mg capsule,delayed release(DR/EC) 20 mg PO DAILY@0630 Discharge Orders: Discharge Order (Routine); Ordered 06/02/22 Ordered By: Luciano Pizarro Diet: Advance to usual diet Activity on Discharge: As tolerated Stand Alone Forms: Patient Portal Discharge page Care Plan Goals: Hypoxia resolved, take Decadron by mouth for 4 more days, take cough medication as needed Health Concerns: Continue all home medications as before Plan of Treatment: Outpatient follow-up with primary care physician/follow-up as outpatient for parotid gland neoplasm Assessment: as per discharge summary
--- NOTE | 2022-06-07 14:02 | MHC.CARE ---
CARE Team met with Pt who was transferred from to [facility] on 06/01 due to COVID pneumonia. Today, Pt presents as alert, orientated and engaged. Pt reports she plans on going to stay with her mother. Pt is no endorsing current SI/HI/VH/AH. Pt plans to follow up with her outpatient team at [facility]. Pt is not presenting with imminent risk and plan for Pt to be discharged to follow up with her current providers. Dr. Lowry in agreement with plan
--- NOTE | 2022-06-07 17:52 | PC.NURSE ---
cell phone, laptop, and laptop [facility] returned to patient upon discharge
== END 2022-06-07 17:00 | disposition home health service (06) | DRG 720 ==
PROVIDERS: Admitting Provider Nurse Practitioner Acute Care; PCP Internal Medicine; Visit Provider Hospitalist
DX: A41.89 Other specified sepsis (principal); J96.01 Acute respiratory failure with hypoxia; U07.1 COVID-19; G47.33 Obstructive sleep apnea (adult) (pediatric); J45.30 Mild persistent asthma, uncomplicated; D50.9 Iron deficiency anemia, unspecified; F51.9 Sleep disorder not due to a substance or known physiological condition, unspecified; F43.10 Post-traumatic stress disorder, unspecified; J18.9 Pneumonia, unspecified organism; J44.0 Chronic obstructive pulmonary disease with (acute) lower respiratory infection; E66.9 Obesity, unspecified; R45.851 Suicidal ideations; D64.9 Anemia, unspecified; Z91.030 Bee allergy status; Z91.040 Latex allergy status; Z91.013 Allergy to seafood; Z88.0 Allergy status to penicillin; Z88.1 Allergy status to other antibiotic agents; Z88.2 Allergy status to sulfonamides; Z88.8 Allergy status to other drugs, medicaments and biological substances; Z79.899 Other long term (current) drug therapy
CPT/HCPCS: 36415; 71275; 80048; 82728; 83605; 84145; 85025; 85027; 85730; 93005; J0248; J1100; J1650; Q9967

== ENCOUNTER 2022-06-13 19:25 | Emergency (ER) | payer MEDICAID, SELFPAY ==
[2022-06-13 19:44] VITALS: BP 134/78; BP 137/68; PULSE 92; PULSE 96; RESP 18; TEMP 37.1; O2SAT 94; O2SAT 95; BMI 33.3
--- NOTE | 2022-06-13 19:47 | PC.NURSE ---
RN called security to change and secure patient's belongings.
[2022-06-13 21:11] VITALS: BP 140/75; PULSE 88; RESP 16; TEMP 36.9; O2SAT 98
--- NOTE | 2022-06-13 21:54 | PC.NURSE ---
Ambulated patient to restroom and obtained urine sample.
--- NOTE | 2022-06-13 21:55 | ED_ITS ---
HPI - Psych General Chief Complaint: Psychiatric Symptoms Stated Complaint: si Time Seen by Provider: 06/13/22 21:22 Source: patient Mode of arrival: ambulatory Limitations: no limitations History of Present Illness HPI Narrative: 52-year-old female presents to ED for suicidal homicidal ideation. Patient states her plan is to jump off the bridge and kill her adoptive mother. . Patient has significant psych history. Patient states no physical complaints Related Data Home Medications Medication Instructions Recorded Confirmed tiotropium bromide 18 mcg capsule 1 cap inhalation DAILY 05/11/22 06/01/22 with inhalation device (Spiriva with HandiHaler) omeprazole 20 mg capsule,delayed 20 mg PO DAILY@0630 06/01/22 06/01/22 release Previous Rx's Medication Instructions Recorded albuterol sulfate 90 mcg/actuation 2 puff inhalation Q4-6H PRN 04/20/22 aerosol inhaler shortness of breath or wheezing 30 days #1 inhaler benztropine 1 mg tablet 1 mg PO BID 30 days #60 tabs 05/18/22 capsaicin 0.025 % topical cream 1 appl topical TID PRN b/l leg 05/18/22 pain #0 grams clonidine HCl 0.2 mg tablet 0.2 mg PO BEDTIME 30 days #30 tabs 05/18/22 cyanocobalamin (vitamin B-12) 100 100 mcg PO DAILY 30 days #30 tabs 05/18/22 mcg tablet ferrous sulfate 324 mg (65 mg 324 mg PO DAILY 30 days #30 tabs 05/18/22 iron) tablet,delayed release gabapentin 600 mg tablet 600 mg PO TID 30 days #90 tabs 05/18/22 lithium carbonate 600 mg capsule 600 mg PO BID 30 days #60 caps 05/18/22 nitroglycerin 0.4 mg sublingual 0.4 mg sublingual Q5MX3 PRN Chest 05/18/22 tablet (Nitrostat) Pain 30 days #10 tabs olanzapine 10 mg tablet 10 mg PO BEDTIME 30 days #30 tabs 05/18/22 oxcarbazepine 150 mg tablet 150 mg PO BID 30 days #60 tabs 05/18/22 ropinirole 0.5 mg tablet 0.5 mg PO BEDTIME 30 days #30 tabs 05/18/22 sertraline 50 mg tablet 50 mg PO DAILY 30 days #30 tabs 05/18/22 trazodone 100 mg tablet 200 mg PO BEDTIME PRN insomnia 30 05/18/22 days #60 tabs valacyclovir 1 gram tablet 1,000 mg PO BID 30 days #60 tabs 05/18/22 dexamethasone sodium phosphate 4 6 mg (1.5 mL) PO DAILY #4 mL 06/07/22 mg/mL injection solution nicotine 21 mg/24 hr daily 21 mg transdermal DAILY #30 ea 06/07/22 transdermal patch Allergies Allergy/AdvReac Type Severity Reaction Status Date / Time aspirin [Aspirin] Allergy Severe HIVES,THROAT Verified 06/13/22 19:33 SWELLS bee pollen [BEE STINGS] Allergy Severe ANAPHYLAXIS Verified 06/13/22 19:33 diphenhydramine Allergy Severe hives, Verified 06/13/22 19:33 [From BENADRYL ALLERGY] throat swells Penicillins [PCN] Allergy Severe HIVES Verified 06/13/22 19:33 THROAT SWELLS Sulfa (Sulfonamide Allergy Intermediate HIVES Verified 06/13/22 19:33 Antibiotics) [SULFA (SULFONAMIDE ANTIBIOTICS)] tramadol [TRAMADOL] Allergy Intermediate ITCHING Verified 06/13/22 19:33 latex [LATEX] Allergy Unknown UNKNOWN Verified 06/13/22 19:33 penicillin G Allergy Unknown Unknown Verified 06/13/22 19:33 levofloxacin [From Levaquin] Allergy Hives Verified 06/13/22 19:33 hydroxyzine AdvReac Severe restless Verified 06/13/22 19:33 legs seafood AdvReac Stomach Verified 03/17/22 12:07 Upset Review of Systems Review of Systems: Suicide homicidal Yes all other systems are reviewed and are negative PMFSH Past Medical History Medical History Asthma exacerbation in COPD Asthma-COPD overlap syndrome Bipolar disorder Bipolar I disorder Borderline personality disorder COPD (chronic obstructive pulmonary disease) Depression Drug abuse Herpes Intermittent explosive disorder Mass of parotid gland FABIOLA (obstructive sleep apnea) Post traumatic stress disorder (PTSD) Pseudoseizures Tobacco use Surgical History History of ankle surgery History of appendectomy History of back surgery Hx of cholecystectomy Family History Family History Mother COPD (chronic obstructive pulmonary disease) Social History Social History Household Members: None Household Members Other:: [facility] [place] Housing: House Housing Other:: Sleeps on the couch at [facility] house Do you presently have visiting nurse or other home services: No Unable to assess alcohol history related to: Unknown Alcohol intake: never Patient Tobacco Use Status: Current everyday Tobacco user Tobacco use type: Cigarette Cigarette Packs Per Day: 3 Cigarettes Per Day: 60.0 Years Smoked: 20+ e-Cigarette/Vaping Use: Never Used Second Hand Smoke Exposure: Yes Substance Use Type: Crack/Cocaine Advance Directives: Yes Advance Directives on File: Yes Advance Directives Date on File: 12/24/20 service: No Current occupational status: unemployed and disabled Sexual orientation: Straight/Heterosexual Physical Exam Vital Signs: Vital Signs: Last Vital Signs Temp 98.4 F 06/13/22 21:11 Pulse 88 06/13/22 21:11 Resp 16 06/13/22 21:11 BP 140/75 H 06/13/22 21:11 Pulse Ox 98 06/13/22 21:11 O2 Del Method 06/13/22 21:11 BMI result Body Mass Index 33.3 Const: General: cooperative, healthy appearing, comfortable, no acute distress, well developed, alert, awake and Physically active Orientation/consciousness: patient oriented x3 HEENT: Head: Yes normal to inspection, Yes No palpable skull fracture present, Yes normocephalic, Yes atraumatic and No abrasion Eyes: General: appearance normal, both eyes and all related structures Neck: Neck: Yes normal visual inspection, Yes full ROM, Yes no lymphadenopathy, Yes no meningeal signs, Yes trachea midline, Yes supple, No anterior neck swelling and No tender Chest: Chest palpation & inspection: normal inspection of the chest and normal palpation of entire chest wall Resp: Effort & Inspection: normal respiratory effort and able to speak in complete sentences Auscultation: clear to auscultation bilaterally Cardio: Jugular venous distension: no JVD Heart sounds: S1 normal heart sound present and S2 normal heart sound present GI: Inspection: Yes normal to inspection and No abdominal wall ecchymosis Palpation (GI): Soft to palpation, not firm, nontender, no guarding and not rigid : General: No CVA tenderness and Yes no CVA tenderness Back/Spine/Pelvis: Back: no CVA tenderness, No CVA tenderness and No back tenderness Skin: General skin exam: no rashes or lesions noted and elasticity normal Neuro: General: patient oriented x3, gait normal, no meningeal signs and CN's II-XI intact bilaterally Cranial nerves: Yes CN's II-XII intact bilaterally Extrem: General: Yes normal to inspection and Yes full ROM Psych: Appearance: grossly normal, well kempt and not disheveled Course Course Course Narrative: Labs and crisis consult placed Reevaluation(s) Reevaluation #1: Patient labs at baseline. UA shows UTI. Patient awaiting crisis valuation. Time: 02:04 MDM - Psych MDM Narrative Medical decision making narrative: Depression Lab Data Result diagrams: 06/13/22 22:46 06/13/22 22:46 Labs: Lab Results 06/13/22 06/13/22 06/13/22 Range/Units 22:46 22:46 22:46 WBC 11.2 H (4.8-10.8) X10*3/uL RBC 4.75 (4.20-5.50) X10*6/uL Hgb 14.1 (12.0-16.0) g/dl Hct 43.8 (37.0-47.0) % MCV 92.2 (80.0-98.0) fL MCH 29.7 (27.0-33.0) pg MCHC 32.2 (31.0-35.0) g/dl RDW 13.0 (11.0-16.0) % Plt Count 259 (160-400) X10*3/uL MPV 9.9 (9.4-12.3) fL Immature Gran % (Auto) 0.4 (0.0-0.4) % Neut % (Auto) 61.4 (45-73) % Lymph % (Auto) 31.2 (20-40) % [place] % (Auto) 5.4 (2-11) % Eos % (Auto) 1.0 (0-4) % Baso % (Auto) 0.6 (0-2) % Lymph # (Auto) 3.5 (1.2-4.9) X10*3/uL [place] # (Auto) 0.6 (0.1-1.2) X10*3/uL Eos # (Auto) 0.1 (0.0-0.4) X10*3/uL Baso # (Auto) 0.1 (0.0-0.2) X10*3/uL Abs Immat Gran (auto) 0.04 H (0.00-0.03) X10*3/uL Absolute Neuts (auto) 6.9 (2.0-8.3) x10*3/uL Absolute Nucleated RBC 0.000 (0.0-0.012) X10*3/uL Nucleated RBC % (auto) 0.0 (0.0-0.2) /100WBC Sodium 143 (135-145) mmol/L Potassium 3.8 (3.3-5.1) mmol/L Chloride 104 (96-108) mmol/L Carbon Dioxide 27 (22-29) mmol/L Anion Gap 16 (12-20) BUN 8 L (9-16) mg/dL Creatinine 0.82 (0.5-1.4) mg/dL Estim Creat Clear Calc 90.3 Estimated GFR > 60 Random Glucose 115 (60-115) mg/dL Calcium 9.6 (8.4-10.2) mg/dL Total Bilirubin 0.4 (0.0-1.0) mg/dL AST 13 (5-31) U/L ALT 17 (0-31) U/L Alkaline Phosphatase 79 (39-117) U/L Total Protein 7.3 (6.5-8.0) g/dL Albumin 4.5 (3.5-5.0) g/dL Urine Color YELLOW Urine Appearance HAZY Urine pH 6.0 (5.0-8.0) Ur Specific [place] 1.025 (1.005-1.025) Urine Protein NEG (NEG-TRACE) MG/DL Urine Glucose (UA) NEG (NEG) MG/DL Urine Ketones NEG (NEG) MG/DL Urine Blood NEG (NEG) Urine Nitrite NEG (NEG) Ur Leukocyte Esterase 2+ H (NEG) Urine RBC 1-4 (0) /HPF Urine WBC 15-29 H (0-4) /HPF Ur Squamous Epith Cells 1+ /LPF Urine Bacteria 3+ /LPF Urine Trichomonas Present Urine Opiates Screen (Not Detect) Urine Fentanyl Screen (Not Detect) Ur Barbiturates Screen (Not Detect) Ur Phencyclidine Scrn (Not Detect) Ur Amphetamines Screen (Not Detect) U Benzodiazepines Scrn (Not Detect) Urine Cocaine Screen (Not Detect) U Marijuana (THC) Screen (Not Detect) Ethyl Alcohol < 10 mg/dL 06/13/22 Range/Units 22:46 WBC (4.8-10.8) X10*3/uL RBC (4.20-5.50) X10*6/uL Hgb (12.0-16.0) g/dl Hct (37.0-47.0) % MCV (80.0-98.0) fL MCH (27.0-33.0) pg MCHC (31.0-35.0) g/dl RDW (11.0-16.0) % Plt Count (160-400) X10*3/uL MPV (9.4-12.3) fL Immature Gran % (Auto) (0.0-0.4) % Neut % (Auto) (45-73) % Lymph % (Auto) (20-40) % [place] % (Auto) (2-11) % Eos % (Auto) (0-4) % Baso % (Auto) (0-2) % Lymph # (Auto) (1.2-4.9) X10*3/uL [place] # (Auto) (0.1-1.2) X10*3/uL Eos # (Auto) (0.0-0.4) X10*3/uL Baso # (Auto) (0.0-0.2) X10*3/uL Abs Immat Gran (auto) (0.00-0.03) X10*3/uL Absolute Neuts (auto) (2.0-8.3) x10*3/uL Absolute Nucleated RBC (0.0-0.012) X10*3/uL Nucleated RBC % (auto) (0.0-0.2) /100WBC Sodium (135-145) mmol/L Potassium (3.3-5.1) mmol/L Chloride (96-108) mmol/L Carbon Dioxide (22-29) mmol/L Anion Gap (12-20) BUN (9-16) mg/dL Creatinine (0.5-1.4) mg/dL Estim Creat Clear Calc Estimated GFR Random Glucose (60-115) mg/dL Calcium (8.4-10.2) mg/dL Total Bilirubin (0.0-1.0) mg/dL AST (5-31) U/L ALT (0-31) U/L Alkaline Phosphatase (39-117) U/L Total Protein (6.5-8.0) g/dL Albumin (3.5-5.0) g/dL Urine Color Urine Appearance Urine pH (5.0-8.0) Ur Specific [place] (1.005-1.025) Urine Protein (NEG-TRACE) MG/DL Urine Glucose (UA) (NEG) MG/DL Urine Ketones (NEG) MG/DL Urine Blood (NEG) Urine Nitrite (NEG) Ur Leukocyte Esterase (NEG) Urine RBC (0) /HPF Urine WBC (0-4) /HPF Ur Squamous Epith Cells /LPF Urine Bacteria /LPF Urine Trichomonas Urine Opiates Screen Not Detected (Not Detect) Urine Fentanyl Screen Not Detected (Not Detect) Ur Barbiturates Screen Not Detected (Not Detect) Ur Phencyclidine Scrn Not Detected (Not Detect) Ur Amphetamines Screen Not Detected (Not Detect) U Benzodiazepines Scrn Not Detected (Not Detect) Urine Cocaine Screen POSITIVE H (Not Detect) U Marijuana (THC) Screen Not Detected (Not Detect) Ethyl Alcohol mg/dL Discharge Plan Discharge Clinical Impression: Depression Patient Disposition: Still a Patient Prescriptions: No Action albuterol sulfate 90 mcg/actuation HFA aerosol inhaler 2 puff inhalation Q4-6H PRN (Reason: shortness of breath or wheezing) 30 Days Qty: 1 0RF Spiriva with HandiHaler 18 mcg capsule, w/inhalation device 1 cap inhalation DAILY capsaicin 0.025 % Cream 1 appl topical TID PRN (Reason: b/l leg pain) Qty: 0 0RF Protocol: Apply to: Apply to: b/l leg valacyclovir 1 gram tablet 1,000 mg PO BID 30 Days Qty: 60 0RF ferrous sulfate 324 mg (65 mg iron) tablet,delayed release (DR/EC) 324 mg PO DAILY 30 Days Qty: 30 0RF clonidine HCl 0.2 mg tablet 0.2 mg PO BEDTIME 30 Days Qty: 30 0RF benztropine 1 mg tablet 1 mg PO BID 30 Days Qty: 60 0RF nitroglycerin [Nitrostat] 0.4 mg Tablet, Sublingual 0.4 mg sublingual Q5MX3 PRN (Reason: Chest Pain) 30 Days Qty: 10 0RF olanzapine 10 mg tablet 10 mg PO BEDTIME 30 Days Qty: 30 0RF lithium carbonate 600 mg capsule 600 mg PO BID 30 Days Qty: 60 0RF gabapentin 600 mg tablet 600 mg PO TID 30 Days Qty: 90 0RF oxcarbazepine 150 mg tablet 150 mg PO BID 30 Days Qty: 60 0RF cyanocobalamin (vitamin B-12) 100 mcg tablet 100 mcg PO DAILY 30 Days Qty: 30 0RF trazodone 100 mg tablet 200 mg PO BEDTIME PRN (Reason: insomnia) 30 Days Qty: 60 0RF ropinirole 0.5 mg tablet 0.5 mg PO BEDTIME 30 Days Qty: 30 0RF sertraline 50 mg tablet 50 mg PO DAILY 30 Days Qty: 30 0RF omeprazole 20 mg capsule,delayed release(DR/EC) 20 mg PO DAILY@0630 nicotine 21 mg/24 hr Patch 24 Hour 21 mg transdermal DAILY Qty: 30 0RF dexamethasone sodium phosphate 4 mg/mL Solution 6 mg PO DAILY Qty: 4 0RF
[2022-06-13 22:53] LABS: Basophils Absolute Auto 0.1 X10*3/uL (0.0-0.2); Basophils Percent Auto 0.6 % (0-2); Eosinophils Absolute Auto 0.1 X10*3/uL (0.0-0.4); Hematocrit 43.8 % (37.0-47.0); Hemoglobin 14.1 g/dl (12.0-16.0); Imm Gran Abs Auto 0.04 X10*3/uL (0.00-0.03); Imm Gran Pct Auto 0.4 % (0.0-0.4); Lymphocytes Absolute Auto 3.5 X10*3/uL (1.2-4.9); Lymphocytes Percent Auto 31.2 % (20-40); MANUAL DIFF FLAG NO; Mean Corpuscular HGB Conc 32.2 g/dl (31.0-35.0); Mean Corpuscular Hemoglobin 29.7 pg (27.0-33.0); Mean Corpuscular Volume 92.2 fL (80.0-98.0); Mean Platelet Volume 9.9 fL (9.4-12.3); Monocytes Absolute Auto 0.6 X10*3/uL (0.1-1.2); Monocytes Percent Auto 5.4 % (2-11); Neutrophils Absolute Auto 6.9 x10*3/uL (2.0-8.3); Neutrophils Percent Auto 61.4 % (45-73); Platelet Count 259 X10*3/uL (160-400); Red Blood Count 4.75 X10*6/uL (4.20-5.50); White Blood Count 11.2 X10*3/uL (4.8-10.8)
[2022-06-13 22:54] LABS: Appearance Urine HAZY; Color Urine YELLOW; Glucose Urine UA NEG (NEG); Leukocyte Esterase Urine 2+ (NEG); Nitrite Urine NEG (NEG); Specific Gravity - Urine 1.025 (1.005-1.025); UACC Culture Trigger YES; Urine Blood NEG (NEG); Urine Ketones NEG (NEG); Urine Protein NEG (NEG-TRACE)
[2022-06-13 23:02] LABS: Bacteria Urine 3+ /LPF; Squamous Epithelial Cell Urine 1+ /LPF; Trichomonas Urine Present
[2022-06-13 23:10] LABS: Alanine Aminotransferase 17 U/L (0-31); Albumin Level 4.5 g/dL (3.5-5.0); Alkaline Phosphatase 79 U/L (39-117); Anion Gap 16 (12-20); Aspartate Amino Transferase 13 U/L (5-31); Bilirubin Total 0.4 mg/dL (0.0-1.0); Blood Urea Nitrogen 8 mg/dL (9-16); Calcium 9.6 mg/dL (8.4-10.2); Carbon Dioxide 27 mmol/L (22-29); Chloride 104 mmol/L (96-108); Creatinine Clr Calc Pharmacy 90.3; Estimated Glomerular Filt Rate > 60; Ethanol < 10 mg/dL; Glucose Random 115 mg/dL (60-115); Potassium 3.8 mmol/L (3.3-5.1); Sodium 143 mmol/L (135-145); Total Protein 7.3 g/dL (6.5-8.0)
[2022-06-13 23:11] LABS: Amphetamine Screen Urine Not Detected (Not Detect); Barbiturates, Urine Not Detected (Not Detect); Benzodiazepines Screen Urine Not Detected (Not Detect); Cannabinoid Screen Urine Not Detected (Not Detect); Cocaine Screen Urine POSITIVE (Not Detect); Fentanyl, urine Not Detected (Not Detect); Opiate Screen Urine Not Detected (Not Detect); Phencyclidine Screen Urine Not Detected (Not Detect)
[2022-06-13] MEDS: LORazepam 1 MG TABLET PO (23:40)
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
--- NOTE | 2022-06-14 05:47 | PC.NURSE ---
Patient sleeping in reclining chair. Patient still on a 1:1. NAD.
[2022-06-14] MEDS: Nitrofurantoin Monohyd/M-Cryst 100 MG CAPSULE PO (07:41)
--- NOTE | 2022-06-14 07:54 | PC.RT ---
pt was not placed on her bipap last night as the patient is in the hallway and there is no plug available to plug the machine in. Also , pt was just here for Covid. Pt should NOT be in the hallway in the ED on Bipap if the Covid status is not back. If the pt was transistioned to a regular room with a curtain or door, then we would have placed this patient on her Bipap settings. Pt was in no resp disress. Dheeraj Ford HOME SERVICE TECHNICIAN
[2022-06-14 08:41] LABS: COVID-19 Test Negative (Negative)
== END 2022-06-14 10:21 | disposition home or self-care (01) ==
PROVIDERS: Physician Assistant; Emergency Provider Emergency Medicine Emergency Medical Services
DX: F33.1 Major depressive disorder, recurrent, moderate (principal); R45.851 Suicidal ideations; F17.210 Nicotine dependence, cigarettes, uncomplicated; F14.10 Cocaine abuse, uncomplicated; Z20.822 Contact with and (suspected) exposure to COVID-19; Z71.6 Tobacco abuse counseling; Z79.899 Other long term (current) drug therapy
CPT/HCPCS: 36415; 80053; 80307; 81001; 82077; 85025; 87086; 87635; 99285

== ENCOUNTER 2022-06-15 12:37 | Emergency (ER) | payer MEDICAID, SELFPAY ==
--- NOTE | 2022-06-15 | ECG_ITS ---
Test Reason : SHORTNESS OF BREATH Blood Pressure : / mmHG Vent. Rate : 079 BPM Atrial Rate : 079 BPM P-R Int : 138 ms QRS Dur : 084 ms QT Int : 420 ms P-R-T Axes : 040 048 028 degrees QTc Int : 481 ms Normal sinus rhythm Nonspecific T wave abnormality Prolonged QT Abnormal ECG When compared with ECG of 02-JUN-2022 18:41, QT has lengthened Referred By: Oswaldo Hollis Electronically Signed By:KEMAR BADILLO
[2022-06-15 12:41] VITALS: BP 127/78; BP 128/78; PULSE 101; PULSE 76; RESP 18; TEMP 37.2; O2SAT 92; O2SAT 93; BMI 36.6
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
[2022-06-15 14:46] LABS: COVID-19 Test Negative (Negative); IDNOW Serial# 55D5AD1C
[2022-06-15 16:49] LABS: Amphetamine Screen Urine Not Detected (Not Detect); Barbiturates, Urine Not Detected (Not Detect); Benzodiazepines Screen Urine Not Detected (Not Detect); Cannabinoid Screen Urine Not Detected (Not Detect); Cocaine Screen Urine POSITIVE (Not Detect); Fentanyl, urine Not Detected (Not Detect); Opiate Screen Urine Not Detected (Not Detect); Phencyclidine Screen Urine Not Detected (Not Detect)
[2022-06-15] MEDS: Nicotine 21 MG PATCH.TD24 TRANSDERMA (18:42)
[2022-06-15 19:28] VITALS: BP 141/75; PULSE 91; RESP 16; O2SAT 95
[2022-06-15] MEDS: Prochlorperazine Maleate 5 MG TABLET PO (21:00)
[2022-06-15] MEDS: OLANZapine 10 MG TABLET PO (21:41)
[2022-06-15] MEDS: Benztropine Mesylate 1 MG TABLET PO (21:41)
[2022-06-15] MEDS: OXcarbazepine 150 MG TABLET PO (21:41)
[2022-06-15] MEDS: Lithium Carbonate 300 MG CAPSULE 600 MG PO (21:41)
[2022-06-15] MEDS: rOPINIRole HCL 0.5 MG TABLET PO (21:41)
[2022-06-15] MEDS: cloNIDine HCL 0.2 MG TABLET PO (21:41)
[2022-06-15] MEDS: Gabapentin 600 MG TABLET PO (21:41)
[2022-06-16 02:32] VITALS: BP 107/62; PULSE 70; RESP 18; TEMP 36.6; O2SAT 92
--- NOTE | 2022-06-16 06:14 | PC.NURSE ---
Patient slept through the night, no distress observed/reported, medication compliant, patient was assessed by care team, disposition pending, patient will be reevaluated by the care team in the morning, behavior non concerning, will continue to monitor.
--- NOTE | 2022-06-16 06:58 | PC.NURSE ---
patient appears to remain asleep at present respirations are even and unlabored patient appears in no distress
[2022-06-16] MEDS: Nicotine 21 MG PATCH.TD24 TRANSDERMA (12:07)
[2022-06-16] MEDS: Lithium Carbonate 300 MG CAPSULE 600 MG PO ×2 (12:07→22:46)
[2022-06-16] MEDS: OXcarbazepine 150 MG TABLET PO ×2 (12:07→22:47)
[2022-06-16] MEDS: Sertraline HCL 50 MG TABLET PO (12:08)
[2022-06-16] MEDS: Gabapentin 600 MG TABLET PO ×2 (15:36→22:47)
[2022-06-16 16:00] VITALS: BP 108/68; PULSE 83; RESP 20; TEMP 36.8; O2SAT 95
[2022-06-16] MEDS: rOPINIRole HCL 0.5 MG TABLET PO (22:46)
[2022-06-16] MEDS: Benztropine Mesylate 1 MG TABLET PO (22:47)
[2022-06-16] MEDS: OLANZapine 10 MG TABLET PO (22:47)
[2022-06-16] MEDS: cloNIDine HCL 0.2 MG TABLET PO (22:47)
[2022-06-16] MEDS: traZODone HCL 100 MG TABLET 200 MG PO (22:47)
[2022-06-17 05:58] VITALS: BP 134/71; PULSE 86; RESP 20; TEMP 36.4; O2SAT 92
[2022-06-17] MEDS: Omeprazole 20 MG CAPSULE.DR PO (06:08)
--- NOTE | 2022-06-17 06:13 | PC.NURSE ---
Patient slept through the night, no distress observed/reported, behavior non concerning, medication compliant, appetite good, elimination intact, care team disposition pending possible discharge today, VSS, will continue to monitor.
--- NOTE | 2022-06-17 07:27 | PC.NURSE ---
patient appears to remain asleep at present respirations are even and unlabored patient appears in no distress
[2022-06-17] MEDS: Ferrous Sulfate 324 MG TABLET.DR PO (09:40)
[2022-06-17] MEDS: Nicotine 21 MG PATCH.TD24 TRANSDERMA (09:40)
[2022-06-17] MEDS: Benztropine Mesylate 1 MG TABLET PO ×2 (09:41→21:57)
[2022-06-17] MEDS: Cyanocobalamin (Vitamin B-12) 100 MCG TABLET PO (09:41)
[2022-06-17] MEDS: OXcarbazepine 150 MG TABLET PO ×2 (09:41→22:05)
[2022-06-17] MEDS: Gabapentin 600 MG TABLET PO ×2 (09:41→21:57)
[2022-06-17] MEDS: Sertraline HCL 50 MG TABLET PO (09:41)
[2022-06-17] MEDS: Lithium Carbonate 300 MG CAPSULE 600 MG PO ×2 (09:41→21:57)
[2022-06-17 14:00] VITALS: BP 116/69; PULSE 92; RESP 18; TEMP 36.5; O2SAT 92
--- NOTE | 2022-06-17 15:59 | MHC.CARE ---
CARE legal billing coordinator meets with pt, who was initially assessed by CARE Team on 06/15 and had a follow up assessment on 06/16. TW has been the corduroy cutting supervisor of both of these prior assessments. Pt initially presented with SI/HI, however, today admits that this is due to not having the resources she needs in the community. Pt is currently unhoused, has multiple medical issues and lack professional and natural supports. Pt states that she has been encouraged in the past to go to a nursing facility where her medical needs can be appropriately addressed on an ongoing basis. Pt states I am too weak to live on the streets. Pt reflects on the hardship she has gone through with being unhoused and often ill, and she states I am ready to go somewhere and stay, I need help. Pt is not at risk to harm herself or others. Pt does have a hx of trauma, psychiatric hospitalization and substance use. CARE Team has determined that inpt admission would not be appropriate at this time after discussion with inpt psychiatric team (Fatmata Joshua and Ligia Cortez, MARSHALL) that pt has been admitted in the recent past without benefit and was seek temporary jail. Plan is for PT eval and case management consult.
[2022-06-17 20:23] LABS: Appearance Urine Hazy; Color Urine Yellow; Glucose Urine UA Negative (Negative); Leukocyte Esterase Urine Large (3+) (Negative); Nitrite Urine Negative (Negative); Urine Blood Trace (Negative); Urine Ketones Negative (Negative); Urine Protein Negative (Neg-Trace)
[2022-06-17 20:29] LABS: UACC Culture Trigger YES; WBC Urine >50 /HPF (0-5)
[2022-06-17 20:30] LABS: Bacteria Urine 2+ (None Seen); Hyaline Casts Urine 0-2 /LPF (0-2)
--- NOTE | 2022-06-17 20:38 | MHC.CM.ED ---
CM met with patient at request of Cherelle Fernando. Pt has been cleared for inpatient psych. Will have PT consult. Pt is agreeable to STR. Pt is homeless. Uses a wheeled walker. Has a CPAP at her foster mothers, but does not have access to it. Pt is pleasant and cooperative. Has long standing psychiatric history and many inpatient hospitalizations in the past. Pt drug screen positive for cocaine. Pt states she had the J&J vaccine and then had moderna and a booster. PCP Dr. Cori Hooker. New HCP completed, as previous HCP is . HCP/friend Samson Zhu ([phone]). Pt is requesting STR in [place], [facility] and [facility]. Not [place]. Referrals placed. CM to follow for d/c needs.
[2022-06-17] MEDS: traZODone HCL 100 MG TABLET 200 MG PO (21:57)
[2022-06-17] MEDS: rOPINIRole HCL 0.5 MG TABLET PO (21:57)
[2022-06-17] MEDS: OLANZapine 10 MG TABLET PO (21:57)
[2022-06-17] MEDS: cloNIDine HCL 0.2 MG TABLET PO (22:05)
[2022-06-17 22:20] VITALS: BP 114/82; PULSE 83; TEMP 36.6; O2SAT 94
--- NOTE | 2022-06-18 04:33 | PC.NURSE ---
Patient slept through the night, no distress observed/reported, medication compliant, patient is referred to case management by care team for the placement, no behavior concerns at this time, will continue to monitor.
[2022-06-18 05:25] VITALS: BP 127/94; PULSE 84; RESP 17; TEMP 36.4; O2SAT 93
[2022-06-18] MEDS: Omeprazole 20 MG CAPSULE.DR PO (06:46)
--- NOTE | 2022-06-18 07:10 | PC.NURSE ---
p[atient appears to remain asleep at present respirations are even and unlabored patient appears in no distress
[2022-06-18 07:43] VITALS: BP 127/94; PULSE 84; O2SAT 93
[2022-06-18] MEDS: Gabapentin 600 MG TABLET PO ×3 (07:57→20:54)
[2022-06-18] MEDS: OXcarbazepine 150 MG TABLET PO ×2 (07:57→20:58)
[2022-06-18] MEDS: Sertraline HCL 50 MG TABLET PO (07:57)
[2022-06-18] MEDS: Cyanocobalamin (Vitamin B-12) 100 MCG TABLET PO (07:57)
[2022-06-18] MEDS: Benztropine Mesylate 1 MG TABLET PO ×2 (07:57→20:54)
[2022-06-18] MEDS: Nicotine 21 MG PATCH.TD24 TRANSDERMA (07:57)
[2022-06-18] MEDS: Lithium Carbonate 300 MG CAPSULE 600 MG PO ×2 (07:57→20:54)
[2022-06-18] MEDS: Ferrous Sulfate 324 MG TABLET.DR PO (07:58)
[2022-06-18 08:04] VITALS: BP 88/39; PULSE 74; RESP 20; TEMP 36.6; O2SAT 91
[2022-06-18 12:27] VITALS: BP 115/69
[2022-06-18 14:00] VITALS: RESP 18
--- NOTE | 2022-06-18 15:55 | MHC.CM.PN ---
CM MET WITH PT TO INFORM HER SHE WOULD NOT SKILL INTO STR SHE REPORTS SHE IS INTERESTED IN LTC SHE IS AWARE IT MAY NOT BE IN THE AREA, SHE REPORTS THAT IS OK REFERRALS WERE BROADCAST, THUS FAR NO BED OFFERS DUE TO POSITIVE TOX SCREEN
[2022-06-18] MEDS: rOPINIRole HCL 0.5 MG TABLET PO (20:54)
[2022-06-18] MEDS: traZODone HCL 100 MG TABLET 200 MG PO ×2 (20:54→20:58)
[2022-06-18] MEDS: OLANZapine 10 MG TABLET PO (20:54)
[2022-06-18] MEDS: cloNIDine HCL 0.2 MG TABLET PO (20:58)
[2022-06-18 21:01] VITALS: BP 106/69; PULSE 86; RESP 20; TEMP 36.8; O2SAT 94
[2022-06-19 06:03] VITALS: BP 110/65; PULSE 75; RESP 16; TEMP 36.8; O2SAT 95
[2022-06-19] MEDS: Omeprazole 20 MG CAPSULE.DR PO (06:19)
--- NOTE | 2022-06-19 06:20 | PC.NURSE ---
Patient slept through the night, no distress observed/reported, medication complaint, behavior non concerning, disposition pending case management placement, will continue to monitor.
[2022-06-19] MEDS: Nicotine 21 MG PATCH.TD24 TRANSDERMA (07:37)
[2022-06-19] MEDS: Lithium Carbonate 300 MG CAPSULE 600 MG PO ×2 (07:38→21:11)
[2022-06-19] MEDS: Gabapentin 600 MG TABLET PO ×3 (07:38→21:12)
[2022-06-19] MEDS: OXcarbazepine 150 MG TABLET PO ×2 (07:38→21:12)
[2022-06-19] MEDS: Cyanocobalamin (Vitamin B-12) 100 MCG TABLET PO (07:38)
[2022-06-19] MEDS: Sertraline HCL 50 MG TABLET PO (07:38)
[2022-06-19] MEDS: Ferrous Sulfate 324 MG TABLET.DR PO (07:38)
[2022-06-19] MEDS: Benztropine Mesylate 1 MG TABLET PO ×2 (07:39→21:12)
--- NOTE | 2022-06-19 10:25 | MHC.CM.PN ---
EMR REVIEWED, PT CLEARED BY CARE TEAM AND REQUESTING LTC, SNF REFERRAL UPDATED AND EXPANDED TO 50 MILE RADIUS, NO BED OFFERS AT THIS TIME, CM WILL CONT TO FOLLOW AND EXPAND SEARCH NEEDED.
--- NOTE | 2022-06-19 10:41 | PC.NURSE ---
patient appears to remain resting at present resp[irations are even and unlabored patient appears in no distress
[2022-06-19] MEDS: traZODone HCL 100 MG TABLET 200 MG PO (21:11)
[2022-06-19] MEDS: rOPINIRole HCL 0.5 MG TABLET PO (21:12)
[2022-06-19] MEDS: cloNIDine HCL 0.2 MG TABLET PO (21:12)
[2022-06-19] MEDS: OLANZapine 10 MG TABLET PO (21:12)
[2022-06-20 05:29] VITALS: BP 114/68; PULSE 70; RESP 16; TEMP 36.8; O2SAT 96
[2022-06-20] MEDS: Omeprazole 20 MG CAPSULE.DR PO (06:49)
--- NOTE | 2022-06-20 06:53 | PC.NURSE ---
Patient slept through the night, no distress observed/reported, medication complaint, behavior non concerning, disposition pending case management placement, VSS, will continue to monitor.
[2022-06-20] MEDS: Nicotine 21 MG PATCH.TD24 TRANSDERMA (09:22)
[2022-06-20] MEDS: Sertraline HCL 50 MG TABLET PO (09:23)
[2022-06-20] MEDS: Ferrous Sulfate 324 MG TABLET.DR PO (09:23)
[2022-06-20] MEDS: Cyanocobalamin (Vitamin B-12) 100 MCG TABLET PO (09:23)
[2022-06-20] MEDS: Lithium Carbonate 300 MG CAPSULE 600 MG PO (09:23)
[2022-06-20] MEDS: Gabapentin 600 MG TABLET PO (09:23)
[2022-06-20] MEDS: Benztropine Mesylate 1 MG TABLET PO (09:23)
[2022-06-20] MEDS: OXcarbazepine 150 MG TABLET PO (09:23)
[2022-06-20 09:48] VITALS: BP 117/68; PULSE 80; RESP 16; TEMP 36.8; O2SAT 93
--- NOTE | 2022-06-20 10:40 | MHC.CM.PN ---
CM RECEIVED MESSAGE FROM ED NURSE THAT PT WANTING TO D/C TO MOM'S HOME, PLAN FOR PT TO D/C TODAY, CM WILL LET CARE TEAM KNOW D/T ONGOING CSS BED SEARCH
--- NOTE | 2022-06-20 10:40 | PC.NURSE ---
pt on the phone with her mom - reports her mom wants her to come to live with her and she will take care of her. contacted case management who is on board with the plan.
--- NOTE | 2022-06-23 08:07 | MHC.CARE ---
CARE Team spoke with Mr. Henok Peguero ([phone]), former DM worker for [facility], via email regarding pt.? The purpose was to discuss what [facility] services, if any, pt had available to her. The content of the response is below: ?Loretta was closed out of [facility] services around December of this year.? As her previous bottle caser, I worked with her primarily while she was hospitalized at on two separate occasions several months ago.? Both times I met with her while she was a DM consumer, we had available housing options for her, one she declined and one that was prepared to accept her but we could not locate her once she was back in the community.?I have worked with on several occasions recently when she presented there and informed them that she is not currently a DM client that explained that since she was closed within the year, either she or someone working with her on an inpatient unit, can contact [facility] directly to request services and she could be re-opened without going through the eligibility process.?My supervisor press room instructed me to provide options to you for her.? We do not have a respite bed for her, but we could make recommendations for her to contact [facility] in [place] or [facility], if housing and/or substance use treatment is what she made need.?
== END 2022-06-20 10:53 | disposition home or self-care (01) ==
PROVIDERS: Physician Assistant; Emergency Provider Emergency Medicine
DX: R45.851 Suicidal ideations (principal); R45.850 Homicidal ideations; F33.1 Major depressive disorder, recurrent, moderate; F17.210 Nicotine dependence, cigarettes, uncomplicated; R26.2 Difficulty in walking, not elsewhere classified; F14.10 Cocaine abuse, uncomplicated; Z20.822 Contact with and (suspected) exposure to COVID-19; Z71.6 Tobacco abuse counseling; Z79.899 Other long term (current) drug therapy
CPT/HCPCS: 80307; 81001; 87086; 87635; 93005; 97161; 99285

== ENCOUNTER 2022-07-01 00:44 | Emergency (ER) | payer MEDICAID, SELFPAY ==
[2022-07-01] VITALS (8 sets, daily range): BP systolic 118–141; BP diastolic 76–83; PULSE 89–91; RESP 16–22; TEMP 36.8–37.6; O2SAT 93–95; BMI 39.9
--- NOTE | 2022-07-01 00:54 | ED_ITS ---
HPI - Psych General Chief Complaint: Psychiatric Symptoms <MARSHALL Bob Last Filed: 07/01/22 04:32> Stated Complaint: SI <MARSHALL Bob Last Filed: 07/01/22 04:32> Time Seen by Provider: 07/01/22 00:59 <MARSHALL Bob Last Filed: 07/01/22 04:32> Source: patient and EMS <MARSHALL Bob Last Filed: 07/01/22 04:32> Mode of arrival: EMS <Charo Borjas NP - Last Filed: 07/01/22 04:32> Limitations: no limitations <Charo Borjas NP - Last Filed: 07/01/22 04:32> History of Present Illness HPI Narrative: 52-year-old female presents via EMS for suicidal ideation and substance abuse. Patient states that she wants to , wants to jump off a bridge even though she does not know how to swim. She did not report any physical complaints at this time. <Charo Borjas NP - Last Filed: 07/01/22 04:32> MD complaint: suicidal ideation, feels depressed, anxiety and substance abuse <Charo Borjas NP - Last Filed: 07/01/22 04:32> Onset (ago): month(s) <MARSHALL Bob Last Filed: 07/01/22 04:32> Duration: constant <Charo Borjas NP - Last Filed: 07/01/22 04:32> History of same: Yes <MARSHALL Bob Last Filed: 07/01/22 04:32> Relieving factors: none <MARSHALL Bob Last Filed: 07/01/22 04:32> Exacerbating factors: drug use <MARSHALL Bob Last Filed: 07/01/22 04:32> Context: recent drug abuse and significant life stressor <Charo Borjas NP - Last Filed: 07/01/22 04:32> Associated psychiatric symptoms: depression, suicidal ideation and racing thoughts <MARSHALL Bob Last Filed: 07/01/22 04:32> Associated symptoms: denies other symptoms <Charo Borjas NP - Last Filed: 07/01/22 04:32> If self harm: admits thoughts of self harm and has plan <Charo Borjas NP - Last Filed: 07/01/22 04:32> Related Data Home Medications: Home Medications Medication Instructions Recorded Confirmed omeprazole 20 mg capsule,delayed 20 mg PO DAILY@0630 06/01/22 07/01/22 release cyanocobalamin (vitamin B-12) 100 1 tab PO DAILY 07/01/22 07/01/22 mcg tablet gabapentin 400 mg capsule 1 cap PO TID 07/01/22 07/01/22 metronidazole 500 mg tablet 1 tab PO BID 07/01/22 07/01/22 olanzapine 10 mg tablet 1 tab PO BEDTIME 07/01/22 07/01/22 oxcarbazepine 150 mg tablet 1 tab PO BID 07/01/22 07/01/22 valacyclovir 1 gram tablet 1 tab PO BID 07/01/22 07/01/22 Previous Rx's Medication Instructions Recorded albuterol sulfate 90 mcg/actuation 2 puff inhalation Q4-6H PRN 04/20/22 aerosol inhaler shortness of breath or wheezing 30 days #1 inhaler ferrous sulfate 324 mg (65 mg 324 mg PO DAILY 30 days #30 tabs 05/18/22 iron) tablet,delayed release nicotine 21 mg/24 hr daily 21 mg transdermal DAILY #30 ea 06/07/22 transdermal patch <Charo Borjas NP - Last Filed: 07/01/22 04:32> Allergies/Adverse Reactions: Allergies Allergy/AdvReac Type Severity Reaction Status Date / Time aspirin [Aspirin] Allergy Severe HIVES,THROAT Verified 06/13/22 19:33 SWELLS bee pollen [BEE STINGS] Allergy Severe ANAPHYLAXIS Verified 06/13/22 19:33 diphenhydramine Allergy Severe hives, Verified 06/13/22 19:33 [From BENADRYL ALLERGY] throat swells Penicillins [PCN] Allergy Severe HIVES Verified 06/13/22 19:33 THROAT SWELLS Sulfa (Sulfonamide Allergy Intermediate HIVES Verified 06/13/22 19:33 Antibiotics) [SULFA (SULFONAMIDE ANTIBIOTICS)] tramadol [TRAMADOL] Allergy Intermediate ITCHING Verified 06/13/22 19:33 latex [LATEX] Allergy Unknown UNKNOWN Verified 06/13/22 19:33 penicillin G Allergy Unknown Unknown Verified 06/13/22 19:33 levofloxacin [From Levaquin] Allergy Hives Verified 06/13/22 19:33 hydroxyzine AdvReac Severe restless Verified 06/13/22 19:33 legs seafood AdvReac Stomach Verified 03/17/22 12:07 Upset <Charo Borjas NP - Last Filed: 07/01/22 04:32> Review of Systems Review of Systems: Constitutional: No Fever, No Chills ENT/Mouth: No Ear Pain, No Nasal Congestion, No sore throat Eyes: No Eye Pain, No Swelling, No Redness Cardiovascular: No Chest Pain, No SOB Respiratory: No Cough, No Sputum, No Dyspnea Gastrointestinal: No Nausea, No Vomiting, No Diarrhea, No Hematochezia, No Melena Genitourinary: No Dysuria, No Urinary Frequency, No Hematuria Musculoskeletal: No Myalgias Skin: No Skin Lesions, No rash Neuro: No Weakness, No Numbness, No Paresthesias, No Dizziness, No Headache Psych: positive Anxiety, positive Depression, positive SI, positive substance abuse Heme/Lymph: No Lymphadenopathy Endocrine: No Polyuria, No Polydipsia <Charo Borjas NP - Last Filed: 07/01/22 04:32> Yes all other systems are reviewed and are negative <Charo Borjas NP - Last Filed: 07/01/22 04:32> PMF Past Medical History Attestation statement: The following information was validated with the patient. <Charo Borjas NP - Last Filed: 07/01/22 04:32> Source: old records reviewed <Charo Borjas NP - Last Filed: 07/01/22 04:32> Medical History: Medical History Asthma exacerbation in COPD Asthma-COPD overlap syndrome Bipolar disorder Bipolar I disorder Borderline personality disorder COPD (chronic obstructive pulmonary disease) Depression Drug abuse Herpes Intermittent explosive disorder Mass of parotid gland FABIOLA (obstructive sleep apnea) Post traumatic stress disorder (PTSD) Pseudoseizures Tobacco use <Charo Borjas NP - Last Filed: 07/01/22 04:32> Surgical History: Surgical History History of ankle surgery History of appendectomy History of back surgery Hx of cholecystectomy <Charo Borjas NP - Last Filed: 07/01/22 04:32> Family History Family History: Family History Mother COPD (chronic obstructive pulmonary disease) <Charo Borjas NP - Last Filed: 07/01/22 04:32> Social History Social History: Social History Household Members: None Household Members Other:: [facility] [place] Housing: House Housing Other:: Sleeps on the couch at [facility] house Do you presently have visiting nurse or other home services: No Unable to assess alcohol history related to: Unknown Alcohol intake: unknown Patient Tobacco Use Status: Tobacco use Unknown Tobacco use type: Cigarette Cigarette Packs Per Day: 3 Cigarettes Per Day: 60.0 Years Smoked: 20+ e-Cigarette/Vaping Use: Never Used Second Hand Smoke Exposure: Yes Substance Use Type: Crack/Cocaine Advance Directives: Yes Advance Directives on File: Yes Advance Directives Date on File: 06/17/22 service: No Current occupational status: unemployed and disabled Sexual orientation: Straight/Heterosexual <Charo Borjas NP - Last Filed: 07/01/22 04:32> Physical Exam Vital Signs: Vital Signs: Last Vital Signs Temp 98.3 F 07/01/22 01:10 Pulse 91 07/01/22 01:10 Resp 22 H 07/01/22 02:35 BP 118/76 07/01/22 01:10 Pulse Ox 95 07/01/22 01:10 O2 Del Method 07/01/22 01:10 BMI result Body Mass Index 39.9 <Charo Borjas NP - Last Filed: 07/01/22 04:32> Vital Signs: Last Vital Signs Temp 98.3 F 07/01/22 01:10 Pulse 91 07/01/22 01:10 Resp 22 H 07/01/22 02:35 BP 118/76 07/01/22 01:10 Pulse Ox 95 07/01/22 01:10 O2 Del Method 07/01/22 01:10 BMI result Body Mass Index 39.9 <Priscila Lynn MD - Last Filed: 07/01/22 06:13> Appearance: Alert. Oriented X3. Moderate emotional distress. Eyes: Pupils equal, round and reactive to light. ENT: Pharynx normal. Neck: Left parotid tumor. Neck supple. CVS: Normal heart rate and rhythm. Pulses normal. Respiratory: No respiratory distress. Breath sounds normal. Abdomen: Soft and nontender. Skin: Skin warm and dry. Normal skin color. Normal skin turgor. Extremities: No lower extremity edema. Gait well-balanced well coordinated. Neuro: No motor deficit. No sensory deficit. Cranial nerves 2-12 intact. <Charo Borjas NP - Last Filed: 07/01/22 04:32> Course Course Course Narrative: 52-year-old female presents via EMS for suicidal ideation and substance abuse. Patient states that she wants to jump off of a bridge even though she does not know how to swim, wants to end her life because she knows that she is going to a painful because of cancer. Patient has had multiple ad missions for suicidal ideation and substance abuse. At this time will order labs, and crisis consult. 01:50 patient attempted to strangle herself with her blankets. Was physically and verbally aggressive to all staff. Required emotional support as well as IM olanzapine and Benadryl. Section 12 signed at this time. 02:30 patient is asleep. Even unlabored respirations. Repositioning self as needed. Physician observation at this time urinalysis is positive for leukocyte esterase and bacteria. Will treat with Macrobid 100 mg twice a day for the next 7 days. <Charo Borjas NP - Last Filed: 07/01/22 04:32> Reevaluation(s) Reevaluation #1: Patient is being treated for UTI with Macrobid. Overnight, patient had to be given olanzapine 10 mg and Benadryl 50 mg. Patient has been sleeping since then, no further events overnight. Vital stable. Patient is on a Section 12 <Priscila Lynn MD - Last Filed: 07/01/22 06:13> Time: 06:12 <Priscila Lynn MD - Last Filed: 07/01/22 06:13> MDM - Psych Differential Diagnosis Differential diagnosis: Likely acute psychosis, suicidal ideation, depression, drug-induced psychotic disorder and substance abuse <Charo Borjas NP - Last Filed: 07/01/22 04:32> Medical Records Attestation: I reviewed the patient's medical records. <Charo MARSHALL Borjas - Last Filed: 07/01/22 04:32> Lab Data Attestation: I reviewed the patient's lab results. <Charo BhagatMARSHALL dickson - Last Filed: 07/01/22 04:32> Labs: Lab Results 07/01/22 07/01/22 07/01/22 Range/Units 01:02 01: 01:09 Urine Color Yellow Urine Appearance Turbid Urine pH 5.5 (5.0-9.0) Ur Specific [place] >= 1.030 H (1.005-1.025) Urine Protein Trace (Neg-Trace) mg/dL Urine Glucose (UA) Negative (Negative) mg/dL Urine Ketones Negative (Negative) mg/dL Urine Blood Negative (Negative) Urine Nitrite Negative (Negative) Ur Leukocyte Esterase Trace H (Negative) Urine RBC Not Reportable Urine WBC 11-20 (0-5) /HPF Ur Squamous Epith Cells 0-2 (0-2) /HPF Urine Bacteria 2+ (None Seen) Hyaline Casts Not Reportable Urine Yeast Present Urine Opiates Screen Not Detected (Not Detect) Urine Fentanyl Screen Not Detected (Not Detect) Ur Barbiturates Screen Not Detected (Not Detect) Ur Phencyclidine Scrn Not Detected (Not Detect) Ur Amphetamines Screen Not Detected (Not Detect) U Benzodiazepines Scrn Not Detected (Not Detect) Urine Cocaine Screen POSITIVE H (Not Detect) U Marijuana (THC) Screen Not Detected (Not Detect) COVID-19 (ENDY) Negative (Negative) COVID-19 Clin Com See Note <Charo Borjas NP - Last Filed: 07/01/22 04:32> Lab Results 07/01/22 07/01/22 07/01/22 Range/Units 01:02 01: 01:09 Urine Color Yellow Urine Appearance Turbid Urine pH 5.5 (5.0-9.0) Ur Specific [place] >= 1.030 H (1.005-1.025) Urine Protein Trace (Neg-Trace) mg/dL Urine Glucose (UA) Negative (Negative) mg/dL Urine Ketones Negative (Negative) mg/dL Urine Blood Negative (Negative) Urine Nitrite Negative (Negative) Ur Leukocyte Esterase Trace H (Negative) Urine RBC Not Reportable Urine WBC 11-20 (0-5) /HPF Ur Squamous Epith Cells 0-2 (0-2) /HPF Urine Bacteria 2+ (None Seen) Hyaline Casts Not Reportable Urine Yeast Present Urine Opiates Screen Not Detected (Not Detect) Urine Fentanyl Screen Not Detected (Not Detect) Ur Barbiturates Screen Not Detected (Not Detect) Ur Phencyclidine Scrn Not Detected (Not Detect) Ur Amphetamines Screen Not Detected (Not Detect) U Benzodiazepines Scrn Not Detected (Not Detect) Urine Cocaine Screen POSITIVE H (Not Detect) U Marijuana (THC) Screen Not Detected (Not Detect) COVID-19 (ENDY) Negative (Negative) COVID-19 Clin Com See Note <Priscila Lynn MD - Last Filed: 07/01/22 06:13> Discharge Plan Discharge Clinical Impression: Drug-induced psychotic disorder, UTI (urinary tract infection) <Charo Borjas NP - Last Filed: 07/01/22 04:32> Patient Disposition: Still a Patient <Charo Borjas NP - Last Filed: 07/01/22 04:32> Prescriptions: No Action albuterol sulfate 90 mcg/actuation HFA aerosol inhaler 2 puff inhalation Q4-6H PRN (Reason: shortness of breath or wheezing) 30 Days Qty: 1 0RF ferrous sulfate 324 mg (65 mg iron) tablet,delayed release (DR/EC) 324 mg PO DAILY 30 Days Qty: 30 0RF oxcarbazepine 150 mg tablet 1 tab PO BID cyanocobalamin (vitamin B-12) 100 mcg tablet 1 tab PO DAILY valacyclovir 1 gram tablet 1 tab PO BID gabapentin 400 mg capsule 1 cap PO TID olanzapine 10 mg tablet 1 tab PO BEDTIME metronidazole 500 mg tablet 1 tab PO BID omeprazole 20 mg capsule,delayed release(DR/EC) 20 mg PO DAILY@0630 nicotine 21 mg/24 hr Patch 24 Hour 21 mg transdermal DAILY Qty: 30 0RF <Charo Borjas NP - Last Filed: 07/01/22 04:32>
[2022-07-01 01:22] LABS: Appearance Urine Turbid; Color Urine Yellow; Glucose Urine UA Negative (Negative); Leukocyte Esterase Urine Trace (Negative); Nitrite Urine Negative (Negative); PH 5.5 (5.0-9.0); Specific Gravity - Urine >= 1.030 (1.005-1.025); Urine Blood Negative (Negative); Urine Ketones Negative (Negative); Urine Protein Trace mg/dL (Neg-Trace)
[2022-07-01 01:35] LABS: Amphetamine Screen Urine Not Detected (Not Detect); Bacteria Urine 2+ (None Seen); Barbiturates, Urine Not Detected (Not Detect); Benzodiazepines Screen Urine Not Detected (Not Detect); Cannabinoid Screen Urine Not Detected (Not Detect); Cocaine Screen Urine POSITIVE (Not Detect); Fentanyl, urine Not Detected (Not Detect); Opiate Screen Urine Not Detected (Not Detect); Phencyclidine Screen Urine Not Detected (Not Detect); Squamous Epithelial Cell Urine 0-2 /HPF (0-2)
[2022-07-01] MEDS: diphenhydrAMINE HCL 50 MG/ML VIAL IM (01:35)
[2022-07-01] MEDS: OLANZapine 10 MG VIAL IM (01:35)
[2022-07-01 01:36] LABS: COVID-19 Test Negative (Negative)
--- NOTE | 2022-07-01 04:50 | PC.NURSE ---
Patient is in bed appears sleeping, patient was found wrapping blanket around her neck and she made suicidal statement that she is going to kill her, patient was aggressive towards staff member and security, provider ordered Olanzapine 10 mg IM and Benadryl 50 mg IM/administered as ordered @ 134 with + effect, patient has been sleeping since 144, N referral completed/confirmed/pending ETA AM, behavior unpredictable, med rec completed/approves by provider, patient is started on Macrobid BID for UTI, VSS, will continue to monitor.
[2022-07-01] MEDS: Nitrofurantoin Monohyd/M-Cryst 100 MG CAPSULE PO ×2 (06:50→19:45)
[2022-07-01] MEDS: Omeprazole 20 MG CAPSULE.DR PO (06:50)
--- NOTE | 2022-07-01 07:35 | PC.NURSE ---
patient appears to remain asleep at present respirations are even and unlabored patient appears in no distress
[2022-07-01] MEDS: OXcarbazepine 150 MG TABLET PO ×2 (08:47→19:44)
[2022-07-01] MEDS: Gabapentin 400 MG CAPSULE PO ×2 (08:47→19:44)
[2022-07-01] MEDS: Ferrous Sulfate 324 MG TABLET.DR PO (08:47)
[2022-07-01] MEDS: Nicotine 21 MG PATCH.TD24 TRANSDERMA (08:47)
[2022-07-01] MEDS: metroNIDAZOLE 500 MG TABLET PO (08:47)
[2022-07-01] MEDS: valACYclovir HCL 1,000 MG TABLET 1000 MG PO ×2 (08:47→19:45)
[2022-07-01] MEDS: Cyanocobalamin (Vitamin B-12) 100 MCG TABLET PO (08:48)
--- NOTE | 2022-07-01 12:41 | PC.NURSE ---
Report received from Ema TY. Patient resting comfortably on stretcher and remains calm and cooperative. Respirations regular and even. Skin PWD. No distress noted. Patient is a bed search at this time.
[2022-07-01] MEDS: OLANZapine 10 MG TABLET PO (19:44)
--- NOTE | 2022-07-02 06:24 | PC.NURSE ---
Patient slept through the night, no distress observed/reported, disposition per [facility] is section 12 inpatient bed search, behavior non concerning, medication, VSS, will continue to monitor.
[2022-07-02 06:43] VITALS: BP 104/71; PULSE 77; RESP 17; TEMP 36.8; O2SAT 93
--- NOTE | 2022-07-02 07:26 | PC.NURSE ---
patient appears to remain asleep at present respirations are even and unlabored patient appears in no distress
[2022-07-02] MEDS: valACYclovir HCL 1,000 MG TABLET 1000 MG PO ×2 (11:05→20:47)
[2022-07-02] MEDS: Nitrofurantoin Monohyd/M-Cryst 100 MG CAPSULE PO ×2 (11:05→20:48)
[2022-07-02] MEDS: Nicotine 21 MG PATCH.TD24 TRANSDERMA (11:05)
[2022-07-02] MEDS: OXcarbazepine 150 MG TABLET PO ×2 (11:05→20:48)
[2022-07-02] MEDS: Gabapentin 400 MG CAPSULE PO ×3 (11:05→20:48)
[2022-07-02] MEDS: Cyanocobalamin (Vitamin B-12) 100 MCG TABLET PO (11:06)
[2022-07-02] MEDS: Ferrous Sulfate 324 MG TABLET.DR PO (11:06)
--- NOTE | 2022-07-02 13:37 | PC.NURSE ---
Pt seen today for individual OT intervention. Upon approach, pt appeared disheveled, wearing hospital gown, sullen and depressed. This typewriter ribbon winder used therapeutic use of self to engage with patient, coping strategies provided including positive imagery and positive affirmations. Pt stated she enjoys journaling, provided with notebook. At end of individual intervention, pt appeared brighter and calmer, stated she in looking forward to plced on next level of care
--- NOTE | 2022-07-02 14:20 | MHC.CARE ---
CARE TEam speaks with psychiatry regarding starting pt on her medications while boarding in the ED.
[2022-07-02 16:25] VITALS: BP 137/81; PULSE 85; RESP 20; TEMP 36.9; O2SAT 94
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
--- NOTE | 2022-07-02 17:40 | PC.NURSE ---
this comic book writer assumed care of this pt at 1700. pt in room talking with a visitor at the time of assuming care. no issues observed/reported.
[2022-07-02] MEDS: OLANZapine 10 MG TABLET PO (20:47)
[2022-07-02] MEDS: rOPINIRole HCL 0.5 MG TABLET PO (20:47)
[2022-07-02] MEDS: Lithium Carbonate 300 MG CAPSULE 600 MG PO (20:48)
[2022-07-02] MEDS: traZODone HCL 100 MG TABLET 200 MG PO (20:48)
[2022-07-02 23:04] VITALS: BP 118/77; PULSE 92; RESP 16; TEMP 37.3; O2SAT 90
--- NOTE | 2022-07-03 05:50 | PC.NURSE ---
Patient slept through the night, no distress observed/reported, disposition per [facility] is section 12 inpatient bed search, no update on bed search, behavior non concerning but can be unpredictable, medication compliant, patient positive for UTI being treated on Macrobid, VSS, will continue to monitor.
[2022-07-03] MEDS: Nitrofurantoin Monohyd/M-Cryst 100 MG CAPSULE PO ×2 (06:08→18:06)
[2022-07-03] MEDS: Omeprazole 20 MG CAPSULE.DR PO (06:08)
[2022-07-03 08:17] VITALS: BP 114/59; PULSE 81; RESP 17; TEMP 37.3; O2SAT 94
--- NOTE | 2022-07-03 08:34 | PC.NURSE ---
Addendum entered by Collin Rosario 07/03/22 08:42: Pharmacy brought Spiriva. Patient refused to take medication. Stated she did not want to take that Original Note: Spiriva not in [facility] from pharmacy notified.
[2022-07-03] MEDS: Nicotine 21 MG PATCH.TD24 TRANSDERMA (08:39)
[2022-07-03] MEDS: Ferrous Sulfate 324 MG TABLET.DR PO (08:40)
[2022-07-03] MEDS: OXcarbazepine 150 MG TABLET PO ×2 (08:40→20:56)
[2022-07-03] MEDS: Gabapentin 400 MG CAPSULE PO ×3 (08:40→20:56)
[2022-07-03] MEDS: valACYclovir HCL 1,000 MG TABLET 1000 MG PO ×2 (08:40→20:56)
[2022-07-03] MEDS: Lithium Carbonate 300 MG CAPSULE 600 MG PO ×2 (08:40→20:56)
[2022-07-03] MEDS: Cyanocobalamin (Vitamin B-12) 100 MCG TABLET PO (08:40)
[2022-07-03] MEDS: Capsaicin 0.025% Cream 60 GM TUBE 1 APPL TOPICAL (14:18)
[2022-07-03 20:04] VITALS: BP 127/55; PULSE 88; RESP 17; TEMP 37.4; O2SAT 93
[2022-07-03] MEDS: rOPINIRole HCL 0.5 MG TABLET PO (20:56)
[2022-07-03] MEDS: traZODone HCL 100 MG TABLET 200 MG PO (20:56)
[2022-07-03] MEDS: OLANZapine 10 MG TABLET PO (20:56)
[2022-07-04] MEDS: Nitrofurantoin Monohyd/M-Cryst 100 MG CAPSULE PO ×2 (06:02→20:06)
[2022-07-04] MEDS: Omeprazole 20 MG CAPSULE.DR PO (06:02)
[2022-07-04 06:07] VITALS: BP 101/48; PULSE 80; TEMP 36.8; O2SAT 92
--- NOTE | 2022-07-04 06:08 | PC.NURSE ---
Patient slept through the night, no distress observed/reported, disposition per [facility] is section 12 inpatient bed search, behavior non concerning, patient reported ruptured abscess from groin, per T abscess size is small one fourth of dime, patient showered/gauze placed, no further complaint reported rest of the night, medication compliant, will continue to monitor.
[2022-07-04] MEDS: Lithium Carbonate 300 MG CAPSULE 600 MG PO ×2 (09:09→20:05)
[2022-07-04] MEDS: Ferrous Sulfate 324 MG TABLET.DR PO (09:10)
[2022-07-04] MEDS: Gabapentin 400 MG CAPSULE PO ×3 (09:10→20:06)
[2022-07-04] MEDS: Cyanocobalamin (Vitamin B-12) 100 MCG TABLET PO (09:10)
[2022-07-04] MEDS: Nicotine 21 MG PATCH.TD24 TRANSDERMA (09:11)
[2022-07-04] MEDS: valACYclovir HCL 1,000 MG TABLET 1000 MG PO ×2 (09:16→20:05)
[2022-07-04] MEDS: OXcarbazepine 150 MG TABLET PO ×2 (09:16→20:06)
[2022-07-04 15:47] VITALS: BP 139/73; PULSE 88; RESP 19; TEMP 36.8; O2SAT 93
--- NOTE | 2022-07-04 15:49 | PC.NURSE ---
pt with c/o of left sided tumor and feels like its growing and painful I did speak with MD and the patient never followed up with [facility] and no services can be done at this hospital per Dr Cisse. The tumor has intact skin and is not open
--- NOTE | 2022-07-04 17:22 | PC.NURSE ---
pt stated that [facility] would not treat her for her tumor and she has no transportation to go to [place].
[2022-07-04] MEDS: OLANZapine 10 MG TABLET PO (20:05)
[2022-07-04] MEDS: traZODone HCL 100 MG TABLET 200 MG PO (20:06)
[2022-07-04] MEDS: rOPINIRole HCL 0.5 MG TABLET PO (20:06)
[2022-07-04] MEDS: Capsaicin 0.025% Cream 60 GM TUBE 1 APPL TOPICAL (20:10)
--- NOTE | 2022-07-05 05:00 | PC.NURSE ---
Patient slept through the night, no distress observed/reported, disposition per [facility] is section 12 inpatient bed search, no update on bed search, behavior non concerning, medication compliant, will continue to monitor.
[2022-07-05 05:41] VITALS: BP 143/90; PULSE 94; RESP 17; TEMP 36.4; O2SAT 93
[2022-07-05] MEDS: Omeprazole 20 MG CAPSULE.DR PO (05:42)
[2022-07-05] MEDS: Nitrofurantoin Monohyd/M-Cryst 100 MG CAPSULE PO (05:42)
--- NOTE | 2022-07-05 07:59 | PC.NURSE ---
patient appears to remain asleep at present respirations are even and unlabored patient appears in no distress
[2022-07-05] MEDS: OXcarbazepine 150 MG TABLET PO (09:51)
[2022-07-05] MEDS: valACYclovir HCL 1,000 MG TABLET 1000 MG PO (09:51)
[2022-07-05] MEDS: Nicotine 21 MG PATCH.TD24 TRANSDERMA (09:52)
[2022-07-05] MEDS: Ferrous Sulfate 324 MG TABLET.DR PO (09:52)
[2022-07-05] MEDS: Cyanocobalamin (Vitamin B-12) 100 MCG TABLET PO (09:52)
[2022-07-05] MEDS: Gabapentin 400 MG CAPSULE PO (09:52)
[2022-07-05] MEDS: Lithium Carbonate 300 MG CAPSULE 600 MG PO (09:52)
--- NOTE | 2022-07-05 10:30 | MHC.CARE ---
CARE Team met with pt in her room in the Behavioral Health Pod of the ED.? Pt is alert and oriented x4 and is far brighter than she had been since her arrival to this facility. ?Pt is engaged in the assessment and continues to be help seeking though the help she believes she requires has shifted.? Her speech and eye contact are unremarkable.? She reports good sleep, having slept well for the past couple of days.? She reports her appetite has returned.? She describes her mood as ?Good?, and demonstrates a wide range of affect, smiling often during the conversation.? Pt denies SI, HI, , and self-harm urges.? She denies AVH.? Pt stated that her anxiety and depression has subsided and that she has a place to go. ?She reports that she will be staying with her friend in [place] after discharge.? Insight, judgement, memory, concentration and impulse control appear to be improving. Pt advised CARE Team that she feels ?Much better? and is requesting a discharge. Plan is for pt to be discharged to her friend?s home.? She will follow up with [facility] to get back on their caseload and will also be following up with the [facility] housing line (Main [facility] line [phone]/[place] [employer] - [phone]).? Numbers will be provided to pt by CARE Team. This plan was discussed with and agreed upon by Jimenez Chad[facility], pt?s nurse MELONY Madrid, and ED provider Cecil. CARE Team will provide transportation.
== END 2022-07-05 10:32 | disposition home or self-care (01) ==
PROVIDERS: Nurse Practitioner Family; Emergency Provider Student in an Organized Health Care Education/Training Program
DX: F19.159 Other psychoactive substance abuse with psychoactive substance-induced psychotic disorder, unspecified (principal); N39.0 Urinary tract infection, site not specified; R45.851 Suicidal ideations; F31.9 Bipolar disorder, unspecified; F43.10 Post-traumatic stress disorder, unspecified; F60.3 Borderline personality disorder; F41.9 Anxiety disorder, unspecified; F17.210 Nicotine dependence, cigarettes, uncomplicated; Z79.899 Other long term (current) drug therapy; Z20.822 Contact with and (suspected) exposure to COVID-19
CPT/HCPCS: 80307; 81001; 87635; 96372; 99285; J1200

== ENCOUNTER 2022-07-09 17:17 | Emergency (ER) | payer MEDICAID, SELFPAY ==
[2022-07-09 17:26] VITALS: BP 120/74; PULSE 82; O2SAT 95
[2022-07-09 17:50] VITALS: BP 122/75; PULSE 87; RESP 18; TEMP 37.2; O2SAT 96; BMI 32.3
[2022-07-09 18:17] LABS: COVID-19 Test Negative (Negative); IDNOW Serial# 16C4AD1C
[2022-07-09 18:18] LABS: Influenza A Negative (Negative); Influenza B2 Negative (Negative)
== END 2022-07-09 19:47 | disposition left against medical advice (07) ==
LOC: HO.ED 19:44
PROVIDERS: Emergency Provider Emergency Medicine
DX: R05.9 Cough, unspecified (principal); Z20.822 Contact with and (suspected) exposure to COVID-19; M79.10 Myalgia, unspecified site; J45.909 Unspecified asthma, uncomplicated
CPT/HCPCS: 87502; 87635; 99281; 99283

== ENCOUNTER 2022-07-10 02:08 | Inpatient (IN) | payer MEDICAID, OTHER, SELFPAY ==
--- NOTE | ~2022-07-10 | CT_ITS ---
EXAMINATION: CT HEAD WITHOUT CONTRAST CLINICAL INFORMATION: Left leg weakness and dizziness COMPARISON: 10/22/2021 TECHNIQUE: Contiguous axial imaging was performed from the skull base to vertex without intravenous administration of contrast. This CT examination was performed using dose optimization techniques as appropriate, variously including the following: *Automated exposure control *Adjustment of mA and/or kV according to patient size (this includes techniques or standardized protocols for targeted exams where dose is matched to indication/reason for exam; i.e. extremities or head) *Use of iterative reconstruction technique DLP: 713 mGy-cm FINDINGS: There is no evidence of acute intracranial hemorrhage or territorial infarction. No abnormal mass-effect or midline shift. No extra-axial fluid collections. Jarvis to white matter differentiation is well preserved. The ventricles are normal in size and configuration. There is no abnormal attenuation within the brain parenchyma. The soft tissues and osseous structures are normal. The sinuses and mastoid air cells are clear. CT/CT head/brain wo IV con IMPRESSION: No acute intracranial pathology.
--- NOTE | ~2022-07-10 | XR_ITS ---
EXAMINATION: XR HIP, LEFT CLINICAL INFORMATION: Pain. COMPARISON: None TECHNIQUE: Two views of the left hip. FINDINGS: Bone alignment is normal. No fracture or dislocation is seen. The joint space is normal. Soft tissues are normal. XR/XR hip LT min 2V IMPRESSION: Normal left hip.
--- NOTE | 2022-07-10 02:18 | ED.PSYCH ---
HPI - Psych General Stated Complaint: 5 Time Seen by Provider: 07/10/22 02:17 Source: patient and old records reviewed Mode of arrival: EMS Limitations: other (under the influence) History of Present Illness HPI Narrative: 52 yo female with hx of COPD, bipolar, parotid mass, substance abuse presents to the ED tonight with c/o using drugs - admits to crack cocaine. She will not discuss much else with me and states she is tired and wants to lay down. complaint: feels depressed and substance abuse Onset (ago): day(s) (1) Duration: constant History of same: Yes Relieving factors: none Exacerbating factors: drug use Context: recent drug abuse Associated psychiatric symptoms: depression Associated symptoms: denies other symptoms Treatments prior to arrival: none Related Data Home Medications Medication Instructions Recorded Confirmed omeprazole 20 mg capsule,delayed 20 mg PO DAILY@0630 06/01/22 07/01/22 release cyanocobalamin (vitamin B-12) 100 1 tab PO DAILY 07/01/22 07/01/22 mcg tablet gabapentin 400 mg capsule 1 cap PO TID 07/01/22 07/01/22 olanzapine 10 mg tablet 1 tab PO BEDTIME 07/01/22 07/01/22 oxcarbazepine 150 mg tablet 1 tab PO BID 07/01/22 07/01/22 valacyclovir 1 gram tablet 1 tab PO BID 07/01/22 07/01/22 capsaicin 0.025 % topical cream 1 appl topical QID PRN pain 07/02/22 07/02/22 Previous Rx's Medication Instructions Recorded albuterol sulfate 90 mcg/actuation 2 puff inhalation Q4-6H PRN 04/20/22 aerosol inhaler shortness of breath or wheezing 30 days #1 inhaler ferrous sulfate 324 mg (65 mg 324 mg PO DAILY 30 days #30 tabs 05/18/22 iron) tablet,delayed release nicotine 21 mg/24 hr daily 21 mg transdermal DAILY #30 ea 06/07/22 transdermal patch nitrofurantoin 100 mg PO BID #6 caps 07/05/22 monohydrate/macrocrystals 100 mg capsule (Macrobid) Allergies Allergy/AdvReac Type Severity Reaction Status Date / Time aspirin [Aspirin] Allergy Severe HIVES,THROAT Verified 06/13/22 19:33 SWELLS bee pollen [BEE STINGS] Allergy Severe ANAPHYLAXIS Verified 06/13/22 19:33 diphenhydramine Allergy Severe hives, Verified 06/13/22 19:33 [From BENADRYL ALLERGY] throat swells Penicillins [PCN] Allergy Severe HIVES Verified 06/13/22 19:33 THROAT SWELLS Sulfa (Sulfonamide Allergy Intermediate HIVES Verified 06/13/22 19:33 Antibiotics) [SULFA (SULFONAMIDE ANTIBIOTICS)] tramadol [TRAMADOL] Allergy Intermediate ITCHING Verified 06/13/22 19:33 latex [LATEX] Allergy Unknown UNKNOWN Verified 06/13/22 19:33 penicillin G Allergy Unknown Unknown Verified 06/13/22 19:33 levofloxacin [From Levaquin] Allergy Hives Verified 06/13/22 19:33 hydroxyzine AdvReac Severe restless Verified 06/13/22 19:33 legs seafood AdvReac Stomach Verified 03/17/22 12:07 Upset Review of Systems Review of Systems: ROS unable to be obtained due to intoxication PMFSH Past Medical History Attestation statement: The following information was validated with the patient. Medical History Asthma exacerbation in COPD Asthma-COPD overlap syndrome Bipolar disorder Bipolar I disorder Borderline personality disorder COPD (chronic obstructive pulmonary disease) Depression Drug abuse Herpes Intermittent explosive disorder Mass of parotid gland FABIOLA (obstructive sleep apnea) Post traumatic stress disorder (PTSD) Pseudoseizures Tobacco use Surgical History History of ankle surgery History of appendectomy History of back surgery Hx of cholecystectomy Family History Family History Mother COPD (chronic obstructive pulmonary disease) Social History Social History Household Members: None Household Members Other:: [facility] [place] Housing: House Housing Other:: Sleeps on the couch at [facility] house Do you presently have visiting nurse or other home services: No Unable to assess alcohol history related to: Unknown Alcohol intake: unknown Patient Tobacco Use Status: Tobacco use Unknown Tobacco use type: Cigarette Cigarette Packs Per Day: 3 Cigarettes Per Day: 60.0 Years Smoked: 20+ e-Cigarette/Vaping Use: Never Used Second Hand Smoke Exposure: Yes Substance Use Type: Crack/Cocaine Advance Directives Date on File: 06/17/22 service: No Current occupational status: unemployed and disabled Sexual orientation: Straight/Heterosexual Physical Exam Vital Signs: Appearance: appears intoxicated and under the influence Oriented X3. No acute distress. Eyes: Pupils equal, round and reactive to light. dilated 4mm ENT: Pharynx normal. atraumatic Neck: Normal inspection. Neck supple. CVS: Normal heart rate and rhythm. Pulses normal. Respiratory: No respiratory distress. Breath sounds normal. Abdomen: Soft and non-tender. Skin: Skin warm and dry. Normal skin color. Normal skin turgor. Extremities: No lower extremity edema. Neuro: Oriented X 3. No motor deficit. No sensory deficit. able to walk with her walker but will not participate in CN exam states she is cold and wants to lay down Course Course Course Narrative: Physician observation started at 231am Patient placed in physician observation because the patient needed more time for clinical sobriety and reassessment after using drugs - will need to be assessed for depression and SI in the AM. At the time observation was started the patient's vitals were stable, patient is alert and oriented but intoxicated and will not participate in exam., Neuro: nonfocal, CV RRR, Lungs clear MDM - Psych MDM Narrative Medical decision making narrative: 52 yo female well known to us - hx of COPD, bipolar disorder, parotid mass - here with c/o drug abuse. At this time she is not forthcoming with much information will need to be observed until more sober and reassessed in AM Discharge Plan Discharge Clinical Impression: Cocaine use disorder Patient Disposition: Still a Patient Prescriptions: No Action albuterol sulfate 90 mcg/actuation HFA aerosol inhaler 2 puff inhalation Q4-6H PRN (Reason: shortness of breath or wheezing) 30 Days Qty: 1 0RF ferrous sulfate 324 mg (65 mg iron) tablet,delayed release (DR/EC) 324 mg PO DAILY 30 Days Qty: 30 0RF oxcarbazepine 150 mg tablet 1 tab PO BID cyanocobalamin (vitamin B-12) 100 mcg tablet 1 tab PO DAILY valacyclovir 1 gram tablet 1 tab PO BID gabapentin 400 mg capsule 1 cap PO TID olanzapine 10 mg tablet 1 tab PO BEDTIME capsaicin 0.025 % cream 1 appl topical QID PRN (Reason: pain) nitrofurantoin monohyd/m-cryst [Macrobid] 100 mg capsule 100 mg PO BID Qty: 6 0RF Rx Instructions: must administer with a meal/food omeprazole 20 mg capsule,delayed release(DR/EC) 20 mg PO DAILY@0630 nicotine 21 mg/24 hr Patch 24 Hour 21 mg transdermal DAILY Qty: 30 0RF
[2022-07-10 02:19] VITALS: BP 153/82; PULSE 95; RESP 17; TEMP 36.4; O2SAT 93; BMI 40.7
[2022-07-10 02:55] LABS: COVID-19 Test Negative (Negative); IDNOW Serial# 55D5AD1C
--- NOTE | 2022-07-10 05:38 | PC.NURSE ---
Patient initially had trouble staying sleep but overall slept well, patient is under poly-substance influence, urine tox-screen pending, med rec completed/pending provider's approval, [facility] referral completed/confirmed/pending ETA, behavior unpredictable but non concerning, VSS, will continue to monitor.
--- NOTE | 2022-07-10 07:01 | PC.NURSE ---
patient appears to remain asleep at present respirations are even and unlabored patient appears in no distress
[2022-07-10 18:01] VITALS: BP 112/76; PULSE 68; RESP 16; TEMP 36.3; O2SAT 93
[2022-07-11] MEDS: Omeprazole 20 MG CAPSULE.DR PO (06:06)
[2022-07-11 06:09] VITALS: BP 121/68; PULSE 76; RESP 16; TEMP 36.5; O2SAT 93
--- NOTE | 2022-07-11 06:15 | PC.NURSE ---
Patient slept through the night, no distress observed/reported, HS medication held due to increased drowsiness, compliant with 6 am medication, urine sample provided/pending lab results, VS assessed within normal limits, behavior appropriate/follows direction well, Per [facility] patient's disposition is section 12 inpatient bed search,
[2022-07-11 06:25] LABS: Appearance Urine Cloudy; Color Urine Yellow; Glucose Urine UA Negative (Negative); Leukocyte Esterase Urine Small (1+) (Negative); Nitrite Urine Negative (Negative); PH 5.5 (5.0-9.0); Specific Gravity - Urine 1.015 (1.005-1.025); Urine Blood Negative (Negative); Urine Ketones Negative (Negative); Urine Protein Negative (Neg-Trace)
[2022-07-11 06:39] LABS: Amphetamine Screen Urine Not Detected (Not Detect); Barbiturates, Urine Not Detected (Not Detect); Benzodiazepines Screen Urine Not Detected (Not Detect); Cannabinoid Screen Urine Not Detected (Not Detect); Cocaine Screen Urine POSITIVE (Not Detect); Fentanyl, urine Not Detected (Not Detect); Opiate Screen Urine Not Detected (Not Detect); Phencyclidine Screen Urine Not Detected (Not Detect)
[2022-07-11 06:40] LABS: Bacteria Urine 4+ (None Seen); Hyaline Casts Urine 0-2 /LPF (0-2); RBC Urine 0-2 /HPF (0-2); Squamous Epithelial Cell Urine >20 /HPF (0-2); UACC Culture Trigger YES; WBC Urine 21-50 /HPF (0-5)
--- NOTE | 2022-07-11 06:54 | PC.NURSE ---
patient appears to remain asleep at present respirations are even and unlabored patient appears in no distress
[2022-07-11] MEDS: Cholecalciferol (Vitamin D3) 25 MCG TABLET PO (07:13)
[2022-07-11] MEDS: Benztropine Mesylate 1 MG TABLET PO ×2 (07:14→20:18)
[2022-07-11] MEDS: valACYclovir HCL 1,000 MG TABLET 1000 MG PO ×2 (07:14→20:18)
[2022-07-11] MEDS: OXcarbazepine 150 MG TABLET PO ×2 (07:14→20:18)
[2022-07-11] MEDS: Ferrous Sulfate 324 MG TABLET.DR PO (07:14)
[2022-07-11] MEDS: Gabapentin 400 MG CAPSULE PO ×3 (07:14→20:19)
[2022-07-11] MEDS: Cyanocobalamin (Vitamin B-12) 100 MCG TABLET PO (07:14)
[2022-07-11] MEDS: Nicotine 21 MG PATCH.TD24 TRANSDERMA (07:14)
[2022-07-11] MEDS: Lithium Carbonate 300 MG CAPSULE 600 MG PO ×2 (08:48→20:18)
[2022-07-11] MEDS: Acetaminophen 325 MG TABLET 650 MG PO (12:52)
[2022-07-11] MEDS: OLANZapine 10 MG TABLET PO (20:18)
[2022-07-11] MEDS: traZODone HCL 100 MG TABLET 200 MG PO (20:19)
[2022-07-11 21:00] VITALS: BP 145/85; PULSE 85; RESP 20; TEMP 36.7; O2SAT 95
--- NOTE | 2022-07-12 05:08 | PC.NURSE ---
Patient slept through the night, no distress observed/reported, medication compliant, VSSs, behavior appropriate/follows direction well, Per [facility] patient's disposition is section 12 inpatient bed search, no update on bed search, will continue to monitor.
[2022-07-12 05:38] VITALS: BP 132/79; PULSE 74; RESP 16; TEMP 36.5; O2SAT 94
[2022-07-12] MEDS: Omeprazole 20 MG CAPSULE.DR PO (06:58)
[2022-07-12 07:43] LABS: Appearance Urine Clear; Color Urine Yellow; Glucose Urine UA Negative (Negative); Leukocyte Esterase Urine Small (1+) (Negative); Nitrite Urine Negative (Negative); Urine Blood Negative (Negative); Urine Ketones Negative (Negative); Urine Protein Negative (Neg-Trace)
[2022-07-12 07:48] LABS: Bacteria Urine 1+ (None Seen); Hyaline Casts Urine 0-2 /LPF (0-2); RBC Urine 0-2 /HPF (0-2); UACC Culture Trigger YES; WBC Urine 21-50 /HPF (0-5)
[2022-07-12] MEDS: OXcarbazepine 150 MG TABLET PO ×2 (08:47→20:57)
[2022-07-12] MEDS: Lithium Carbonate 300 MG CAPSULE 600 MG PO ×2 (08:47→20:56)
[2022-07-12] MEDS: Ferrous Sulfate 324 MG TABLET.DR PO (08:47)
[2022-07-12] MEDS: Cyanocobalamin (Vitamin B-12) 100 MCG TABLET PO (08:47)
[2022-07-12] MEDS: Cholecalciferol (Vitamin D3) 25 MCG TABLET PO (08:47)
[2022-07-12] MEDS: Gabapentin 400 MG CAPSULE PO ×3 (08:47→20:56)
[2022-07-12] MEDS: valACYclovir HCL 1,000 MG TABLET 1000 MG PO ×2 (08:47→20:56)
[2022-07-12] MEDS: Benztropine Mesylate 1 MG TABLET PO ×2 (08:48→20:56)
--- NOTE | 2022-07-12 09:35 | MHC.CARE ---
CARE Team checked in with Pt regarding her plan of care. Pt became upset and irritable when t/w discussed alternative plans in lieu of [facility] admission as Pt has been medication complaint throughout the weekend and there is no current inpt beds available. CARE Team discussed N respite, peer based respite and the living room. Pt then stated I can only going to the living room for 2 days and respite for 7 days that's why I want to go to . CARE Team discussed limitations of [facility] regarding housing security. Pt became upset with t/w and conversation no longer was beneficial so t/w left PTs room.
[2022-07-12 09:52] VITALS: BP 107/52; PULSE 68; RESP 16; TEMP 36.8; O2SAT 93
--- NOTE | 2022-07-12 10:27 | PC.NURSE ---
pt sleeping in bed- calm and cooperative. aware of plan of care and denied having any questions.
--- NOTE | 2022-07-12 13:53 | MHC.CM.ED ---
Received notification from [facility] Team that patient may need LTC placement. Unfortunately patient's urine is positive for Cocaine. Patient will not be able to be placed due to this. Referral made to [facility]. They're unable to offer a bed at this time.
--- NOTE | 2022-07-12 13:57 | PC.NURSE ---
pt to ct
--- NOTE | 2022-07-12 13:57 | PC.NURSE ---
mri screening form completed and signed. sent via fax to mri
--- NOTE | 2022-07-12 13:58 | PC.NURSE ---
OT was at bedside to eval pt earlier. md atwood to bedside for eval of his own. pt reports increasing left sided weakness over the last 3 days. OT agrees to it being the worst today, noting a left foot drop and unequal hand access clerk. plan for CT and MRI.
--- NOTE | 2022-07-12 14:07 | PC.NURSE ---
Pt seen for individual intervention on this date. Pt expressed concern with getting her paperwork in order . This sports book writer problem solved with pt, provided with tools to organize list of medications, diagnoses and allergies. Pt stated this provided peace of mind as she hopes to transition to a jail in he future for her care. Pt noted to have Lt sided weakness, including decreased L handgrip strength, decreased range of motion on Lt hip, knee and ankles (dropped foot). Pt noted also to drag L foot on the floor while ambulating. Nurse made aware of increased fall risk. Pt already has a wheeled walker, trained in compensatory strategy for ambulation to decrease fall risk.
--- NOTE | 2022-07-12 15:00 | PC.NURSE ---
Pt to MRI with security and staff member.
--- NOTE | 2022-07-12 16:36 | PC.NURSE ---
Pt unable to complete MRI due to claustrophobia. notified.
--- NOTE | 2022-07-12 16:46 | PC.NURSE ---
Dr Sorensen at bedside for neurology consult.
--- NOTE | 2022-07-12 16:52 | P.CNNE_ITS ---
History of Present Illness Data of Consult Service Date: 07/12/22 Primary Care Provider: Unknown Physician HPI Reason for consult: Left leg weakness 52 years old woman presently in emergency room on the psychiatric side came to emergency room with change in mental status and noted to be in acute delirium due to cocaine use. Apparently she has used cocaine in the past. At this point she was waiting for proper placement, being homeless, while it was noted that her left leg was weak. This consultation was requested for that. When I talked to her, she mostly complain of pain in her left leg. Review of Systems Review of Systems: No recent obvious fall PMFSH Past Medical History Medical History Asthma exacerbation in COPD Asthma-COPD overlap syndrome Bipolar disorder Bipolar I disorder Borderline personality disorder COPD (chronic obstructive pulmonary disease) Depression Drug abuse Herpes Intermittent explosive disorder Mass of parotid gland FABIOLA (obstructive sleep apnea) Post traumatic stress disorder (PTSD) Pseudoseizures Tobacco use Family History Family History Mother COPD (chronic obstructive pulmonary disease) Surgical History Surgical History History of ankle surgery History of appendectomy History of back surgery Hx of cholecystectomy Social History Social History Household Members: None Household Members Other:: Prison in [place] Housing: House Housing Other:: Sleeps on the couch at [facility] house Do you presently have visiting nurse or other home services: No Unable to assess alcohol history related to: Unknown Alcohol intake: unknown Patient Tobacco Use Status: Tobacco use Unknown Tobacco use type: Cigarette Cigarette Packs Per Day: 3 Cigarettes Per Day: 60.0 Years Smoked: 20+ e-Cigarette/Vaping Use: Never Used Second Hand Smoke Exposure: Yes Substance Use Type: Crack/Cocaine Advance Directives: Yes Advance Directives on File: Yes Advance Directives Date on File: 06/17/22 service: No Current occupational status: unemployed and disabled Sexual orientation: Straight/Heterosexual Meds Allergies Allergy/AdvReac Type Severity Reaction Status Date / Time aspirin [Aspirin] Allergy Severe HIVES,THROAT Verified 06/13/22 19:33 SWELLS bee pollen [BEE STINGS] Allergy Severe ANAPHYLAXIS Verified 06/13/22 19:33 diphenhydramine Allergy Severe hives, Verified 06/13/22 19:33 [From BENADRYL ALLERGY] throat swells Penicillins [PCN] Allergy Severe HIVES Verified 06/13/22 19:33 THROAT SWELLS Sulfa (Sulfonamide Allergy Intermediate HIVES Verified 06/13/22 19:33 Antibiotics) [SULFA (SULFONAMIDE ANTIBIOTICS)] tramadol [TRAMADOL] Allergy Intermediate ITCHING Verified 06/13/22 19:33 latex [LATEX] Allergy Unknown UNKNOWN Verified 06/13/22 19:33 penicillin G Allergy Unknown Unknown Verified 06/13/22 19:33 levofloxacin [From Levaquin] Allergy Hives Verified 06/13/22 19:33 hydroxyzine AdvReac Severe restless Verified 06/13/22 19:33 legs seafood AdvReac Stomach Verified 03/17/22 12:07 Upset Active Medications: Current Medications Albuterol Sulfate (Albuterol Sulfate 90 Mcg 8 Gm Inhaler) 2 puff INHALE Q4H PRN PRN Reason: shortness of breath or wheezing Benztropine Mesylate (Benztropine Mesylate 1 Mg Tablet) 1 mg PO BID [facility] Last Admin: 07/12/22 08:48 Dose: 1 mg Cyanocobalamin (Cyanocobalamin (Vitamin B-12) 100 Mcg Tablet) 100 mcg PO DAILY [facility] Last Admin: 07/12/22 08:47 Dose: 100 mcg Ferrous Sulfate (Ferrous Sulfate 324 Mg Tablet.) 324 mg PO DAILY [facility] Last Admin: 07/12/22 08:47 Dose: 324 mg Gabapentin (Gabapentin 400 Mg Capsule) 400 mg PO TID [facility] Last Admin: 07/12/22 14:50 Dose: 400 mg [place] Carbonate ([place] Carbonate 300 Mg Capsule) 600 mg PO BID [facility] Last Admin: 07/12/22 08:47 Dose: 600 mg Nicotine (Nicotine 21 Mg Patch.Td24) 21 mg TRANSDERMA DAILY [facility] Last Admin: 07/12/22 08:52 Dose: Not Given Olanzapine (Olanzapine 10 Mg Tablet) 10 mg PO BEDTIME [facility] Last Admin: 07/11/22 20:18 Dose: 10 mg Omeprazole (Omeprazole 20 Mg Capsule.) 20 mg PO DAILY@0630 [facility] Last Admin: 07/12/22 06:58 Dose: 20 mg Oxcarbazepine (Oxcarbazepine 150 Mg Tablet) 150 mg PO BID [facility] Last Admin: 07/12/22 08:47 Dose: 150 mg Tiotropium [place] (Tiotropium [place] 18 Mcg Cap.W.Dev) 1 puff INHALE DAILY [facility] Last Admin: 07/12/22 10:24 Dose: 1 puff Trazodone HCl (Trazodone Hcl 100 Mg Tablet) 200 mg PO BEDTIME [facility] Last Admin: 07/11/22 20:19 Dose: 200 mg Valacyclovir HCl (Valacyclovir Hcl 1,000 Mg Tablet) 1,000 mg PO BID [facility] Last Admin: 07/12/22 08:47 Dose: 1,000 mg Vitamin D (Cholecalciferol (Vitamin D3) 25 Mcg Tablet) 25 mcg PO DAILY [facility] Last Admin: 07/12/22 08:47 Dose: 25 mcg Home Medications Medication Instructions Recorded Confirmed Last Taken Type omeprazole 20 mg capsule,delayed 20 mg PO DAILY@0630 06/01/22 07/10/22 06/13/22 07:00 History release cyanocobalamin (vitamin B-12) 100 1 tab PO DAILY 07/01/22 07/10/22 Unknown History mcg tablet olanzapine 10 mg tablet 1 tab PO BEDTIME 07/01/22 07/10/22 Unknown History oxcarbazepine 150 mg tablet 1 tab PO BID 07/01/22 07/10/22 Unknown History valacyclovir 1 gram tablet 1 tab PO BID 07/01/22 07/10/22 Unknown History capsaicin 0.025 % topical cream 1 appl topical QID PRN pain 07/02/22 07/10/22 Unknown History benztropine 1 mg tablet 1 tab PO BID 07/10/22 07/10/22 Unknown History cholecalciferol (vitamin D3) 25 1 tab PO DAILY 07/10/22 07/10/22 Unknown History mcg (1,000 unit) tablet gabapentin 400 mg capsule 1 cap PO TID 07/10/22 07/10/22 Unknown History tiotropium bromide 18 mcg capsule 1 cap inhalation DAILY 07/10/22 07/10/22 Unknown History with inhalation device (Spiriva with HandiHaler) trazodone 100 mg tablet 2 tab PO BEDTIME 07/10/22 07/10/22 Unknown History lithium carbonate 600 mg capsule 1 cap PO BID 07/11/22 07/11/22 07/09/22 20:00 History Physical Exam Vital Signs: Vital Signs: Last Vital Signs Temp 98.3 F 07/12/22 09:52 Pulse 68 07/12/22 09:52 Resp 16 07/12/22 09:52 BP 107/52 L 07/12/22 09:52 Pulse Ox 93 07/12/22 09:52 O2 Del Method 07/12/22 09:52 BMI result Body Mass Index 40.7 Neuro: Other: Obese woman in no obvious distress. She was sleeping on her side. She promptly woke up and cooperative with examination. Mental status was okay. Face was symmetrical. There was no arm weakness or pronator drift. She was able to raise her right leg against gravity without difficulty but was having difficulty with left leg though she was able to do it. She said that this was because of pain. There was no obvious weakness in the foot or knee joint. Lateral rotation of hip resulted in significant pain in hip joint area. Reflexes were trace to absent. Plantars were flat or flexor. Speech was normal Results Labs Labs: Urine 07/12/22 Range/Units 07:07 Urine Color Yellow Urine Appearance Clear Urine pH 6.0 (5.0-9.0) Ur Specific [place] 1.010 (1.005-1.025) Urine Protein Negative (Neg-Trace) mg/dL Urine Glucose (UA) Negative (Negative) mg/dL Noncontrast head CT did not reveal any significant abnormality though there was suggestion of mild chronic microvascular ischemic changes Assessment and Plan (1) Left leg weakness: Status: Acute Left leg weakness in my opinion is more of giveaway type related to hip pain. I would suggest paying attention to her left hip to rule out any pathology such as osteoarthritis. There is no indication of any upper motor neuron pathology or radicular pathology on her description of symptoms and examination. Procedures Date of Service Date of Service: 07/12/22
[2022-07-12 20:52] VITALS: TEMP 36.8; BMI 39.1
[2022-07-12] MEDS: OLANZapine 10 MG TABLET PO (20:56)
[2022-07-12] MEDS: traZODone HCL 100 MG TABLET 200 MG PO (20:56)
[2022-07-13 02:49] VITALS: BP 105/85; PULSE 75; RESP 18; TEMP 36.6; O2SAT 94
[2022-07-13 05:28] VITALS: BMI 39.1
[2022-07-13] MEDS: Omeprazole 20 MG CAPSULE.DR PO (06:26)
--- NOTE | 2022-07-13 07:39 | PC.NURSE ---
patient appears to remain asleep at present respirations are even and unlabored patient appears in no distress
[2022-07-13] MEDS: Cholecalciferol (Vitamin D3) 25 MCG TABLET PO (10:01)
[2022-07-13] MEDS: OXcarbazepine 150 MG TABLET PO ×2 (10:01→22:34)
[2022-07-13] MEDS: Lithium Carbonate 300 MG CAPSULE 600 MG PO ×2 (10:01→22:33)
[2022-07-13] MEDS: valACYclovir HCL 1,000 MG TABLET 1000 MG PO ×2 (10:01→22:34)
[2022-07-13] MEDS: Nicotine 21 MG PATCH.TD24 TRANSDERMA (10:01)
[2022-07-13] MEDS: Ferrous Sulfate 324 MG TABLET.DR PO (10:02)
[2022-07-13] MEDS: Benztropine Mesylate 1 MG TABLET PO ×2 (10:02→22:34)
[2022-07-13] MEDS: Cyanocobalamin (Vitamin B-12) 100 MCG TABLET PO (10:02)
[2022-07-13] MEDS: Gabapentin 400 MG CAPSULE PO ×3 (10:02→20:51)
[2022-07-13 13:25] VITALS: BP 120/74; PULSE 89; TEMP 36.8; O2SAT 90
--- NOTE | 2022-07-13 14:52 | PC.NURSE ---
Pt seen this day for individual OT tx. Upon approach pt is immediately receptive to speak with this underwriter solicitation director as well as interventions provided. She presents cheerful however when discussing her situation becomes melancholy stating I'm ready to go to a correction I'm not gong to make it much longer out there . Pt is provided with sensory tool, puzzles, and journals these are known interests of this pt. Upon conclusion of session pt enthusiastically engages in puzzling activity.
[2022-07-13 14:58] LABS: COVID-19 Test Negative (Negative); IDNOW Serial# 9DB6401D
--- NOTE | 2022-07-13 17:05 | ECG_ITS ---
Test Reason : MED CLEARANCE Blood Pressure : / mmHG Vent. Rate : 077 BPM Atrial Rate : 077 BPM P-R Int : 148 ms QRS Dur : 086 ms QT Int : 392 ms P-R-T Axes : -14 023 020 degrees QTc Int : 443 ms Normal sinus rhythm Nonspecific T wave abnormality Abnormal ECG When compared with ECG of 15-JUN-2022 20:35, QT has shortened Referred By: Mary Beth Cisse Electronically Signed By:KEMAR BADILLO
[2022-07-13 17:21] LABS: Monocytes Absolute Auto 0.5 X10*3/uL (0.1-1.2); PLT CLUMP 1; SCAN SMEAR FLAG 1
[2022-07-13 17:23] LABS: Basophils Absolute Auto 0.1 X10*3/uL (0.0-0.2); Basophils Percent Auto 1.1 % (0-2); Eosinophils Absolute Auto 0.1 X10*3/uL (0.0-0.4); Eosinophils Percent Auto 1.5 % (0-4); Hematocrit 41.2 % (37.0-47.0); Hemoglobin 13.2 g/dl (12.0-16.0); Imm Gran Abs Auto 0.01 X10*3/uL (0.00-0.03); Imm Gran Pct Auto 0.1 % (0.0-0.4); Lymphocytes Absolute Auto 2.9 X10*3/uL (1.2-4.9); Lymphocytes Percent Auto 36.3 % (20-40); MANUAL DIFF FLAG SCAN; Mean Corpuscular Hemoglobin 29.3 pg (27.0-33.0); Mean Corpuscular Volume 91.4 fL (80.0-98.0); Mean Platelet Volume 10.3 fL (9.4-12.3); Monocytes Percent Auto 6.6 % (2-11); Neutrophils Absolute Auto 4.3 x10*3/uL (2.0-8.3); Neutrophils Percent Auto 54.4 % (45-73); Red Blood Count 4.51 X10*6/uL (4.20-5.50); Red Cell Distribution Width 12.7 % (11.0-16.0)
[2022-07-13 17:42] LABS: Platelet Count 225 X10*3/uL (160-400); White Blood Count 7.9 X10*3/uL (4.8-10.8)
[2022-07-13 17:43] LABS: Alanine Aminotransferase 18 U/L (0-31); Albumin Level 4.1 g/dL (3.5-5.0); Alkaline Phosphatase 67 U/L (39-117); Anion Gap 13 (12-20); Aspartate Amino Transferase 15 U/L (5-31); Bilirubin Total < 0.2 mg/dL (0.0-1.0); Blood Urea Nitrogen 14 mg/dL (9-16); Calcium 9.8 mg/dL (8.4-10.2); Carbon Dioxide 29 mmol/L (22-29); Chloride 102 mmol/L (96-108); Creatinine Clr Calc Pharmacy 120.4; Estimated Glomerular Filt Rate > 60; Glucose Random 102 mg/dL (60-115); Potassium 4.2 mmol/L (3.3-5.1); SLIDE REVIEW VERIFIED; Sodium 140 mmol/L (135-145); Total Protein 6.6 g/dL (6.5-8.0)
[2022-07-13] MEDS: Acetaminophen 325 MG TABLET 650 MG PO (20:51)
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
[2022-07-13] MEDS: OLANZapine 10 MG TABLET PO (22:32)
[2022-07-13] MEDS: traZODone HCL 100 MG TABLET 200 MG PO (22:32)
[2022-07-13] MEDS: rOPINIRole HCL 0.5 MG TABLET PO (22:33)
--- NOTE | 2022-07-14 00:18 | PC.ADMIT ---
A white, single, female, aged 52 years was [facility] Cond[facility] at 1945 following [facility] from [facility] and [facility]. Pt has a number admissions here and elsewhere. Pt called 911 due to SI triggered by worsening depression related to health problems. Pt has a lesion of the parotid gland on left side of her face that is reported to be cancerous and is worsening per pt. Pt reported that she is having difficulty finding surgical care for this issue. Pt reported SI with a plan to jump into traffic. Pt reports increased symptoms of depression in the past weekPt said that the tumor has increased in size impacting her ability to swallow. Pt stated in earlier assessment that she does not feel she has a reason to live anymore. Pt was calm and cooperative during admission and stated that she would like to get a PCP, have meds adjusted and would like to d/c to a correction. Pt denies Etoh use and says she only uses crack cocaine. Pt stated she is not interested in a program treating addiction issues. Medical issues include: fibromyalgia, arthritis, COPD, asthma, history of seizures, chronic back pain, heart murmur, GERD, lesion of the parotid gland reported to be cancerous. [id number] done, treatment plan done and admission orders obtained. Pt is resting in room on 15 minutes safety check status at this time.
[2022-07-14 07:30] VITALS: BP 124/60; PULSE 74; RESP 16; TEMP 36.2; O2SAT 94
[2022-07-14] MEDS: Cholecalciferol (Vitamin D3) 25 MCG TABLET PO (08:09)
[2022-07-14] MEDS: Ferrous Sulfate 324 MG TABLET.DR PO (08:09)
[2022-07-14] MEDS: OXcarbazepine 150 MG TABLET PO ×2 (08:09→21:01)
[2022-07-14] MEDS: Gabapentin 400 MG CAPSULE PO ×3 (08:09→21:01)
[2022-07-14] MEDS: Omeprazole 20 MG CAPSULE.DR PO (08:10)
[2022-07-14] MEDS: Cyanocobalamin (Vitamin B-12) 100 MCG TABLET PO (08:10)
[2022-07-14] MEDS: valACYclovir HCL 1,000 MG TABLET 1000 MG PO ×2 (08:10→21:02)
[2022-07-14] MEDS: Benztropine Mesylate 1 MG TABLET PO ×2 (08:10→21:00)
[2022-07-14] MEDS: Lithium Carbonate 300 MG CAPSULE 600 MG PO ×2 (08:10→21:01)
[2022-07-14] MEDS: Nicotine 21 MG PATCH.TD24 TRANSDERMA (08:49)
[2022-07-14 09:34] LABS: Estimated Average Glucose 111 mg/dL; Hemoglobin A1c % 5.5 %
[2022-07-14 09:37] LABS: Appearance Urine Clear; Color Urine Yellow; Glucose Urine UA Negative (Negative); Leukocyte Esterase Urine Small (1+) (Negative); Nitrite Urine Negative (Negative); UMIC TRIGGER UA YES; Urine Blood Negative (Negative); Urine Ketones Negative (Negative); Urine Protein Negative (Neg-Trace)
[2022-07-14 09:52] LABS: Bacteria Urine 1+ (None Seen); Hyaline Casts Urine 0-2 /LPF (0-2); RBC Urine 0-2 /HPF (0-2); WBC Urine 0-5 /HPF (0-5)
[2022-07-14 09:52] LABS: Cholesterol 198 mg/dL; HDL Cholesterol 46 mg/dL; LDL Cholesterol Calculated 99 mg/dl; Magnesium 1.9 mg/dL (1.6-2.6); Triglycerides 266 mg/dL
[2022-07-14 10:01] LABS: Free T4 (Free Thyroxine) 0.88 ng/dL (0.71-1.85); Thyroid Stimulating Hormone 4.28 uIU/mL (0.32-4.0)
[2022-07-14 10:28] LABS: Folate 6.4 ng/mL (> or = 4.0); Vitamin B12 547 pg/mL (200-900)
[2022-07-14] MEDS: Acetaminophen 325 MG TABLET 650 MG PO (11:42)
--- NOTE | 2022-07-14 12:36 | PC.NURSE ---
Pt. reported to this RN, that she is thinking about using a utensil to cut the tumor out of her neck. She states that she wants to do this to get the cancer out because none of the doctors will touch it . Pt. states that she sees this action as reasonable. She states that she is staying out in public areas on the unit so that she is less likely to do this. This RN reported this concern to her charge nurse, contact staff, and MD-Dr. Damon.
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
[2022-07-14] MEDS: clonazePAM 0.5 MG TABLET PO (14:42)
[2022-07-14] MEDS: Nicotine Polacrilex 2 MG GUM 4 MG BUCCAL ×2 (14:42→20:59)
--- NOTE | 2022-07-14 15:00 | MHC.CLN ---
NUTRITION CONSULT FOR PATIENT REPORTS WEIGHT LOSS OF 20# . REVIEW OF WEIGHT HX SHOWS WEIGHT LOSS X 6 MONTHS OF -4.1% (APPROX 10#). PATIENT REPORTED TO THIS STOCK CLERK [facility] [facility] STORE THAT SHE IS EATING TOO MUCH . ORDERING MULTIPLE ENTREES. ADVISED TO EAT MORE VEGETABLES TO HELP HER FEEL FULL. PATIENT NOT CONCERNED WITH PRIOR WEIGHT LOSS AT THIS VISIT, BUT FOCUSED ON EATING TOO MUCH/POSSIBLE WEIGHT GAIN. NO ADDITIONAL NUTRITION INTERVENTIONS AT THIS TIME.
[2022-07-14] MEDS: cloNIDine HCL 0.1 MG TABLET PO ×2 (17:40→23:34)
[2022-07-14] MEDS: hydrOXYzine HCL 50 MG TABLET PO (17:41)
[2022-07-14 17:44] VITALS: BP 109/69; PULSE 79
[2022-07-14 20:17] VITALS: BP 129/79; PULSE 81; RESP 18; TEMP 36.8; O2SAT 95
[2022-07-14] MEDS: OLANZapine 10 MG TABLET PO (21:01)
[2022-07-14] MEDS: rOPINIRole HCL 0.5 MG TABLET PO (21:02)
[2022-07-14] MEDS: traZODone HCL 100 MG TABLET 200 MG PO (23:34)
[2022-07-15] MEDS: Miconazole Nitrate 2% Oint 57 GM OINT...G. 1 APPL TOPICAL ×2 (01:55→01:57)
[2022-07-15] MEDS: hydrOXYzine HCL 50 MG TABLET PO ×2 (02:04→09:25)
[2022-07-15] MEDS: Gabapentin 400 MG CAPSULE PO ×4 (02:04→20:48)
[2022-07-15] MEDS: Acetaminophen 325 MG TABLET 650 MG PO (02:04)
[2022-07-15] MEDS: Benztropine Mesylate 1 MG TABLET PO ×2 (07:49→20:48)
[2022-07-15] MEDS: OXcarbazepine 150 MG TABLET PO ×2 (07:49→20:48)
[2022-07-15] MEDS: Cholecalciferol (Vitamin D3) 25 MCG TABLET PO (07:50)
[2022-07-15] MEDS: Ferrous Sulfate 324 MG TABLET.DR PO (07:50)
[2022-07-15] MEDS: valACYclovir HCL 1,000 MG TABLET 1000 MG PO ×2 (07:50→20:48)
[2022-07-15] MEDS: Omeprazole 20 MG CAPSULE.DR PO (07:50)
[2022-07-15] MEDS: Lithium Carbonate 300 MG CAPSULE 600 MG PO ×2 (07:50→20:48)
[2022-07-15] MEDS: cloNIDine HCL 0.1 MG TABLET PO (07:50)
[2022-07-15] MEDS: Nicotine 21 MG PATCH.TD24 TRANSDERMA (07:51)
[2022-07-15] MEDS: Cyanocobalamin (Vitamin B-12) 100 MCG TABLET PO (07:51)
[2022-07-15] MEDS: Nicotine Polacrilex 2 MG GUM 4 MG BUCCAL ×4 (08:56→16:35)
[2022-07-15 09:05] VITALS: BP 98/63; PULSE 77; RESP 18; TEMP 36; O2SAT 94
[2022-07-15 10:52] VITALS: BMI 44.7
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
[2022-07-15 18:00] VITALS: BP 141/80; PULSE 85
[2022-07-15] MEDS: traZODone HCL 100 MG TABLET 200 MG PO (20:48)
[2022-07-15] MEDS: rOPINIRole HCL 0.5 MG TABLET PO (20:48)
[2022-07-15] MEDS: OLANZapine 10 MG TABLET PO (20:48)
[2022-07-16] MEDS: hydrOXYzine HCL 50 MG TABLET PO ×2 (00:11→13:30)
[2022-07-16] MEDS: Acetaminophen 325 MG TABLET 650 MG PO ×2 (00:12→11:24)
[2022-07-16] MEDS: Gabapentin 400 MG CAPSULE PO ×3 (00:12→14:50)
[2022-07-16 06:00] VITALS: BP 123/63; PULSE 103; RESP 18; TEMP 36.6; O2SAT 93
[2022-07-16] MEDS: Omeprazole 20 MG CAPSULE.DR PO (07:50)
[2022-07-16] MEDS: Nicotine Polacrilex 2 MG GUM 4 MG BUCCAL ×4 (07:50→14:50)
[2022-07-16] MEDS: Nicotine 21 MG PATCH.TD24 TRANSDERMA (08:43)
[2022-07-16] MEDS: valACYclovir HCL 1,000 MG TABLET 1000 MG PO (08:43)
[2022-07-16] MEDS: OXcarbazepine 150 MG TABLET PO (08:43)
[2022-07-16] MEDS: Lithium Carbonate 300 MG CAPSULE 600 MG PO (08:43)
[2022-07-16] MEDS: Benztropine Mesylate 1 MG TABLET PO (08:43)
[2022-07-16] MEDS: Cholecalciferol (Vitamin D3) 25 MCG TABLET PO (08:43)
[2022-07-16] MEDS: Cyanocobalamin (Vitamin B-12) 100 MCG TABLET PO (08:43)
[2022-07-16] MEDS: Ferrous Sulfate 324 MG TABLET.DR PO (08:44)
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
--- NOTE | 2022-07-16 09:29 | PC.RT ---
Dr. Damon called today to see Ms. Garza as her cpap did not feel right last night. I went up there ans readjusted her machine. She felt comfortable on cpap 8. She was set on Auto cpap starting at 6. It is now set to 8 and it feel fine.
--- NOTE | 2022-07-16 12:57 | PC.NURSE ---
Pt was administered a MOCA assessment at approximately 12:45pm on 07/16/22 at the suggestion of the MD. Pt was alert, Ox4, with fair insight to the situation and the assessment was administered in the pt's room on M5. She presented as frustrated and irritable, getting upset at herself easily and refusing to attempt different tasks at times due to fear of failure. With some prompting however, pt was able to complete the assessment. Pt received a score of 19, which suggests mild cognitive impairment. The MD was notified of the pt's score on this assessment.
[2022-07-16] MEDS: chlorproMAZINE HCl 100 MG TABLET PO (13:30)
[2022-07-16] MEDS: cloNIDine HCL 0.1 MG TABLET PO (13:30)
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
== END 2022-07-16 17:00 | disposition home health service (06) | DRG 753 ==
LOC: HO.ED 07-13 16:18 → HO.PM5 07-13 19:30
PROVIDERS: Emergency Medicine; Registered Nurse; Admitting Provider Psychiatry & Neurology Psychiatry; Emergency Provider Emergency Medicine; Visit Provider Psychiatry & Neurology Psychiatry
DX: F31.9 Bipolar disorder, unspecified (principal); R45.851 Suicidal ideations; Z91.19 Patient's noncompliance with other medical treatment and regimen; F43.10 Post-traumatic stress disorder, unspecified; F14.10 Cocaine abuse, uncomplicated; F60.3 Borderline personality disorder; F40.240 Claustrophobia; Z20.822 Contact with and (suspected) exposure to COVID-19; Z91.030 Bee allergy status; Z88.0 Allergy status to penicillin; Z91.013 Allergy to seafood; Z91.040 Latex allergy status; Z88.2 Allergy status to sulfonamides; Z88.8 Allergy status to other drugs, medicaments and biological substances; Z79.899 Other long term (current) drug therapy
CPT/HCPCS: 36415; 70450; 73502; 80053; 80061; 80307; 81001; 82607; 82746; 83036; 83735; 84439; 84443; 85025; 87086; 87635; 93005; 99285

== ENCOUNTER 2022-07-19 16:24 | Emergency (ER) | payer MEDICAID, SELFPAY ==
--- NOTE | ~2022-07-19 | CT_ITS ---
EXAMINATION: CT SOFT TISSUE NECK WITHOUT CONTRAST CLINICAL INFORMATION: Left parotid swelling COMPARISON: None TECHNIQUE: Helical imaging was performed in the axial plane with generation of coronal and sagittal reformatted images. This CT examination was performed using dose optimization techniques as appropriate, variously including the following: *Automated exposure control *Adjustment of mA and/or kV according to patient size (this includes techniques or standardized protocols for targeted exams where dose is matched to indication/reason for exam; i.e. extremities or head) *Use of iterative reconstruction technique DLP: 1001 mGy-cm FINDINGS: Again seen is a part solid part cystic mass centered along the posterior left parotid gland and proximal sternocleidomastoid muscle measuring approximately 4.2 x 4.1 x 4.2 cm in size, previously 3.8 x 3.9 x 3.2 cm. No surrounding inflammatory fat stranding. No pathologically enlarged cervical lymph nodes. Major salivary glands and thyroid gland are unremarkable. No mucosal space mass. No retropharyngeal edema/collection. Visualized upper lungs are clear. No upper mediastinal lymphadenopathy. Globes and retro-orbital structures are unremarkable. Visualized intracranial contents grossly unremarkable, limited assessment. Review of bone windows demonstrates a no acute fracture or suspicious osseous lesion. Mild multilevel cervical spondylosis with preserved disc heights. Paranasal sinuses and mastoid air cells normally aerated. CT/CT soft tissue neck wo IV con IMPRESSION: 1. Similar to minimal enlargement of the neck solid and cystic mass along the proximal left sternocleidomastoid muscle and posterior left parotid gland. Correlate with prior biopsy results.
[2022-07-19 16:30] VITALS: BP 140/88; PULSE 78; O2SAT 98
[2022-07-19 16:42] VITALS: BP 153/78; PULSE 88; RESP 18; TEMP 37; O2SAT 92; BMI 43.7
--- NOTE | 2022-07-19 21:07 | ED_ITS ---
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 Patient was informed 3 months ago she possibly has parotid cancer and did not get a chance to follow up with [facility]. Patient states he has a follow- up with [facility] in 2 days for biopsy. Patient denies any drooling, shortness of breath, headache, dizziness, neck swelling, chest pain, or ear pain. Patient came to the ED to be evaluated Related Data Home Medications Medication Instructions Recorded Confirmed omeprazole 20 mg capsule,delayed 20 mg PO DAILY@0630 06/01/22 07/10/22 release cyanocobalamin (vitamin B-12) 100 1 tab PO DAILY 07/01/22 07/10/22 mcg tablet olanzapine 10 mg tablet 1 tab PO BEDTIME 07/01/22 07/10/22 oxcarbazepine 150 mg tablet 1 tab PO BID 07/01/22 07/10/22 valacyclovir 1 gram tablet 1 tab PO BID 07/01/22 07/10/22 capsaicin 0.025 % topical cream 1 appl topical QID PRN pain 07/02/22 07/10/22 benztropine 1 mg tablet 1 tab PO BID 07/10/22 07/10/22 cholecalciferol (vitamin D3) 25 1 tab PO DAILY 07/10/22 07/10/22 mcg (1,000 unit) tablet gabapentin 400 mg capsule 1 cap PO TID 07/10/22 07/10/22 tiotropium bromide 18 mcg capsule 1 cap inhalation DAILY 07/10/22 07/10/22 with inhalation device (Spiriva with HandiHaler) trazodone 100 mg tablet 2 tab PO BEDTIME 07/10/22 07/10/22 lithium carbonate 600 mg capsule 1 cap PO BID 07/11/22 07/11/22 Previous Rx's Medication Instructions Recorded albuterol sulfate 90 mcg/actuation 2 puff inhalation Q4-6H PRN 04/20/22 aerosol inhaler shortness of breath or wheezing 30 days #1 inhaler ferrous sulfate 324 mg (65 mg 324 mg PO DAILY 30 days #30 tabs 05/18/22 iron) tablet,delayed release nicotine 21 mg/24 hr daily 21 mg transdermal DAILY #30 ea 06/07/22 transdermal patch Allergies Allergy/AdvReac Type Severity Reaction Status Date / Time aspirin [Aspirin] Allergy Severe HIVES,THROAT Verified 06/13/22 19:33 SWELLS bee pollen [BEE STINGS] Allergy Severe ANAPHYLAXIS Verified 06/13/22 19:33 diphenhydramine Allergy Severe hives, Verified 06/13/22 19:33 [From BENADRYL ALLERGY] throat swells Penicillins [PCN] Allergy Severe HIVES Verified 06/13/22 19:33 THROAT SWELLS Sulfa (Sulfonamide Allergy Intermediate HIVES Verified 06/13/22 19:33 Antibiotics) [SULFA (SULFONAMIDE ANTIBIOTICS)] tramadol [TRAMADOL] Allergy Intermediate ITCHING Verified 06/13/22 19:33 latex [LATEX] Allergy Unknown UNKNOWN Verified 06/13/22 19:33 penicillin G Allergy Unknown Unknown Verified 06/13/22 19:33 levofloxacin [From Levaquin] Allergy Hives Verified 06/13/22 19:33 hydroxyzine AdvReac Severe restless Verified 06/13/22 19:33 legs seafood AdvReac Stomach Verified 03/17/22 12:07 Upset Review of Systems 2 Review of Systems: posterior left ear mass PMFSH Past Medical History Medical History Asthma exacerbation in COPD Asthma-COPD overlap syndrome Bipolar disorder Bipolar I disorder Borderline personality disorder COPD (chronic obstructive pulmonary disease) Depression Drug abuse Herpes Intermittent explosive disorder Mass of parotid gland FABIOLA (obstructive sleep apnea) Post traumatic stress disorder (PTSD) Pseudoseizures Tobacco use Surgical History History of ankle surgery History of appendectomy History of back surgery Hx of cholecystectomy Family History Family History Mother COPD (chronic obstructive pulmonary disease) Social History Social History Household Members: None Household Members Other:: Longterm in [place] Housing: Homeless Housing Other:: Sleeps on the couch at [facility] house Do you presently have visiting nurse or other home services: No Unable to assess alcohol history related to: Unknown Alcohol intake: unknown Patient Tobacco Use Status: Current everyday Tobacco user Tobacco use type: Cigarette Cigarette Packs Per Day: 3 Cigarettes Per Day: 2 Years Smoked: 34 e-Cigarette/Vaping Use: Former Use Second Hand Smoke Exposure: Yes Substance Use Type: Crack/Cocaine Advance Directives: No Advance Directives Information Provided: No Advance Directives Date on File: 06/17/22 service: No Current occupational status: unemployed and disabled Sexual orientation: Straight/Heterosexual Physical Exam ED Vital Signs: Vital Signs - 24 hr 07/19/22 16:42 Temperature 98.6 F Pulse Rate 88 Respiratory Rate 18 Blood Pressure 153/78 H Pulse Oximetry 92 Oxygen Delivery Method Room Air BMI result Body Mass Index 43.7 Const General: cooperative, healthy appearing, comfortable, no acute distress, well developed, alert, awake and Physically active; No acute distress Orientation/consciousness: oriented to place, oriented to time and patient oriented x3 HENMT Other: negative for neck swelling, drooling Head: Yes normal to inspection, Yes No palpable skull fracture present, Yes normocephalic, Yes atraumatic and No abrasion Ears: hearing grossly normal bilaterally, external ears normal, TM's normal bilaterally, TM normal on the right, TM normal on the left and EAC's normal Eyes General: appearance normal, both eyes and all related structures Neck Neck: Yes normal visual inspection, Yes full ROM, Yes no lymphadenopathy, Yes no meningeal signs, Yes trachea midline, Yes supple, No anterior neck swelling and No tender Chest Chest palpation & inspection: normal inspection of the chest and normal palpation of entire chest wall Resp Effort & Inspection: normal respiratory effort and able to speak in complete sentences Auscultation: clear to auscultation bilaterally Cardio Jugular venous distension: no JVD Heart sounds: S1 normal heart sound present and S2 normal heart sound present GI Inspection: Yes normal to inspection and No abdominal wall ecchymosis Palpation (GI): Soft to palpation, not firm, nontender, no guarding and not rigid General: No CVA tenderness and Yes no CVA tenderness Back/Spine/Pelvis Back: no CVA tenderness, No CVA tenderness and No back tenderness Skin General skin exam: no rashes or lesions noted and elasticity normal Neuro General: oriented to place, oriented to time, patient oriented x3, gait normal and no meningeal signs Cranial nerves: Yes CN's II-XII intact bilaterally Extrem General: Yes normal to inspection and Yes full ROM Psych Appearance: grossly normal, well kempt and not disheveled Course Course Course Narrative: Patient discussed with supervising Dr. Nova recommends non contrast CT scan. Reevaluation(s) Reevaluation #1: CT mastoid was ordered but radiology techs states soft tissue neck will evaluate the mastoid face and neck so CT mastoid can be canceled. States she will write in note from radiologist to evaluate mastoid on soft tissue neck CT scan which will catch the face parotid mastoid and neck. Time: 21:14 Reevaluation #2: CT scan shows same parotid mass. Patient informed she has to keep up with the appointment at [facility] in 2 days for the biopsy and re-evaluation. Patient is safe for discharge and givien copy of ct scan for her follow up. Time: 22:33 Medical Decision Making MDM Narrative Medical decision making narrative: Parotid mass Discharge Plan Discharge Clinical Impression: Mass of parotid gland Patient Disposition: Home, Self-Care Additional Instructions: Your CT scan shows the same size parotid mass. You are safe for discharge. Please follow-up your scheduled appointment at [facility] for biopsy and re- evaluation. Return to the ED for increased size, throat swelling, ear pain, drooling, shortness of breath, chest pain, headache, dizziness, increase size of mass or any other concerning symptoms. Prescriptions: No Action albuterol sulfate 90 mcg/actuation HFA aerosol inhaler 2 puff inhalation Q4-6H PRN (Reason: shortness of breath or wheezing) 30 Days Qty: 1 0RF ferrous sulfate 324 mg (65 mg iron) tablet,delayed release (DR/EC) 324 mg PO DAILY 30 Days Qty: 30 0RF oxcarbazepine 150 mg tablet 1 tab PO BID cyanocobalamin (vitamin B-12) 100 mcg tablet 1 tab PO DAILY valacyclovir 1 gram tablet 1 tab PO BID olanzapine 10 mg tablet 1 tab PO BEDTIME capsaicin 0.025 % cream 1 appl topical QID PRN (Reason: pain) gabapentin 400 mg capsule 1 cap PO TID trazodone 100 mg tablet 2 tab PO BEDTIME benztropine 1 mg tablet 1 tab PO BID Spiriva with HandiHaler 18 mcg capsule, w/inhalation device 1 cap inhalation DAILY cholecalciferol (vitamin D3) 25 mcg (1,000 unit) tablet 1 tab PO DAILY lithium carbonate 600 mg capsule 1 cap PO BID omeprazole 20 mg capsule,delayed release(DR/EC) 20 mg PO DAILY@0630 nicotine 21 mg/24 hr Patch 24 Hour 21 mg transdermal DAILY Qty: 30 0RF Interventions: ED Discharge Assessment Last Done: 07/19/22 23:10 Discharge Date/Time: 07/19/22 23:10 Print Language: Turkish
[2022-07-19] MEDS: oxyCODONE HCl Immed Release 5 MG TABLET PO (21:56)
== END 2022-07-19 23:10 | disposition home or self-care (01) ==
PROVIDERS: Emergency Provider Internal Medicine
DX: D37.030 Neoplasm of uncertain behavior of the parotid salivary glands (principal); R22.1 Localized swelling, mass and lump, neck; F17.200 Nicotine dependence, unspecified, uncomplicated; F14.10 Cocaine abuse, uncomplicated; Z79.899 Other long term (current) drug therapy
CPT/HCPCS: 70490; 99283; 99284

== ENCOUNTER 2022-07-20 23:09 | Emergency (ER) | payer MEDICAID, SELFPAY ==
--- NOTE | 2022-07-20 23:33 | ED_ITS ---
HPI - Abdominal Pain General Chief Complaint: General Medical <Charo Borjas NP - Last Filed: 07/21/22 02:03> Stated Complaint: abdominal pain <Charo Borjas NP - Last Filed: 07/21/22 02:03> Time Seen by Provider: 07/21/22 05:42 <Charo Borjas NP - Last Filed: 07/21/22 02:03> Source: patient and EMS <Charo Borjas NP - Last Filed: 07/21/22 02:03> Mode of arrival: EMS <Charo Borjas NP - Last Filed: 07/21/22 02:03> Limitations: no limitations <Charo Borjas NP - Last Filed: 07/21/22 02:03> History of Present Illness HPI narrative: 52-year-old female presents via EMS for 4 days of flu-like symptoms, abdominal pain, nausea, diarrhea, and vomiting. she states that she is unable to keep anything down and feels like that her body is shaking. She would like to be tested for the flu. She does not describe chest pain or pressure, palpitations, shortness breath, cough, abdominal distention, dysuria, hematuria, fevers or chills. <Charo Borjas NP - Last Filed: 07/21/22 02:03> MD elicited complaint: abdominal pain <Charo Borjas NP - Last Filed: 07/21/22 02:03> Onset (ago): day(s) (4) <Charo Borjas NP - Last Filed: 07/21/22 02:03> Pain Consistency: constant <Charo Borjas NP - Last Filed: 07/21/22 02:03> Location: diffuse <Charo Borjas NP - Last Filed: 07/21/22 02:03> Severity: severe <Charo Borjas NP - Last Filed: 07/21/22 02:03> Pain scale (0-10): 10 <Charo Borjas NP - Last Filed: 07/21/22 02:03> Quality: aching <Charo Borjas NP - Last Filed: 07/21/22 02:03> Exacerbating factors: movement <Charo Borjas NP - Last Filed: 07/21/22 02:03> Relieving factors: nothing <Charo Borjas NP - Last Filed: 07/21/22 02:03> Associated symptoms: nausea, vomiting and diarrhea <Charo Borjas NP - Last Filed: 07/21/22 02:03> Related Data Home Medications: Home Medications Medication Instructions Recorded Confirmed omeprazole 20 mg capsule,delayed 20 mg PO DAILY@0630 06/01/22 07/10/22 release cyanocobalamin (vitamin B-12) 100 1 tab PO DAILY 07/01/22 07/10/22 mcg tablet olanzapine 10 mg tablet 1 tab PO BEDTIME 07/01/22 07/10/22 oxcarbazepine 150 mg tablet 1 tab PO BID 07/01/22 07/10/22 valacyclovir 1 gram tablet 1 tab PO BID 07/01/22 07/10/22 capsaicin 0.025 % topical cream 1 appl topical QID PRN pain 07/02/22 07/10/22 benztropine 1 mg tablet 1 tab PO BID 07/10/22 07/10/22 cholecalciferol (vitamin D3) 25 1 tab PO DAILY 07/10/22 07/10/22 mcg (1,000 unit) tablet gabapentin 400 mg capsule 1 cap PO TID 07/10/22 07/10/22 tiotropium bromide 18 mcg capsule 1 cap inhalation DAILY 07/10/22 07/10/22 with inhalation device (Spiriva with HandiHaler) trazodone 100 mg tablet 2 tab PO BEDTIME 07/10/22 07/10/22 lithium carbonate 600 mg capsule 1 cap PO BID 07/11/22 07/11/22 Previous Rx's Medication Instructions Recorded albuterol sulfate 90 mcg/actuation 2 puff inhalation Q4-6H PRN 04/20/22 aerosol inhaler shortness of breath or wheezing 30 days #1 inhaler ferrous sulfate 324 mg (65 mg 324 mg PO DAILY 30 days #30 tabs 05/18/22 iron) tablet,delayed release nicotine 21 mg/24 hr daily 21 mg transdermal DAILY #30 ea 06/07/22 transdermal patch nitrofurantoin 100 mg PO Q12H 7 days #14 caps 07/21/22 monohydrate/macrocrystals 100 mg capsule (Macrobid) <Charo Borjas NP - Last Filed: 07/21/22 02:03> Allergies/Adverse Reactions: Allergies Allergy/AdvReac Type Severity Reaction Status Date / Time aspirin [Aspirin] Allergy Severe HIVES,THROAT Verified 06/13/22 19:33 SWELLS bee pollen [BEE STINGS] Allergy Severe ANAPHYLAXIS Verified 06/13/22 19:33 diphenhydramine Allergy Severe hives, Verified 06/13/22 19:33 [From BENADRYL ALLERGY] throat swells Penicillins [PCN] Allergy Severe HIVES Verified 06/13/22 19:33 THROAT SWELLS Sulfa (Sulfonamide Allergy Intermediate HIVES Verified 06/13/22 19:33 Antibiotics) [SULFA (SULFONAMIDE ANTIBIOTICS)] tramadol [TRAMADOL] Allergy Intermediate ITCHING Verified 06/13/22 19:33 latex [LATEX] Allergy Unknown UNKNOWN Verified 06/13/22 19:33 penicillin G Allergy Unknown Unknown Verified 06/13/22 19:33 levofloxacin [From Levaquin] Allergy Hives Verified 06/13/22 19:33 hydroxyzine AdvReac Severe restless Verified 06/13/22 19:33 legs seafood AdvReac Stomach Verified 03/17/22 12:07 Upset <Charo Borjas BENDING PRESS OPERATOR - Last Filed: 07/21/22 02:03> Review of Systems Review of Systems Constitutional: No Weight loss, No Fever, No Chills, No Night Sweats, No Fatigue, No Malaise ENT/Mouth: No Hearing loss, No Ear Pain, No Nasal Congestion, No Sinus Pain, No Hoarseness, No sore throat, No Rhinorrhea, No Swallowing Difficulty Eyes: No Eye Pain, No Swelling, No Redness, No Foreign Body, No Discharge, No Vision Changes Cardiovascular: No Chest Pain, No SOB, No Dyspnea on Exertion, No Orthopnea, No Edema, No Palpitations Respiratory: No Cough, No Sputum, No Wheezing, No Smoke Exposure, No Dyspnea Gastrointestinal: Positive Nausea, Positive Vomiting, positive Diarrhea, positive abdominal Pain, No Hematochezia, No Melena Genitourinary: no irregular bleeding, No Dysuria, No Urinary Frequency, No Hematuria, No Urinary Incontinence, No Urgency, No Flank Pain, No Urinary Flow Changes, No Hesitancy Musculoskeletal: No joint pain, No Myalgias, No Joint Swelling Skin: No Skin Lesions, No rash Neuro: No Weakness, No Numbness, No Paresthesias, No Loss of Consciousness, No Dizziness, No Headache Psych: No Anxiety/Panic, No Depression, No SI/HI/AH/VH, No Social Issues Heme/Lymph: No Bruising, No Bleeding,No Lymphadenopathy Endocrine: No Polyuria, No Polydipsia, No Temperature Intolerance <Charo Borjas NP - Last Filed: 07/21/22 02:03> Yes all other systems are reviewed and are negative <Charo Borjas NP - Last Filed: 07/21/22 02:03> FOR[facility]LY [facility] Past Medical History Attestation statement: The following information was validated with the patient. <Charo Borjas NP - Last Filed: 07/21/22 02:03> Source: old records reviewed <Charo Borjas NP - Last Filed: 07/21/22 02:03> Medical History: Medical History Asthma exacerbation in COPD Asthma-COPD overlap syndrome Bipolar disorder Bipolar I disorder Borderline personality disorder COPD (chronic obstructive pulmonary disease) Depression Drug abuse Herpes Intermittent explosive disorder Mass of parotid gland FABIOLA (obstructive sleep apnea) Post traumatic stress disorder (PTSD) Pseudoseizures Tobacco use <Charo Borjas NP - Last Filed: 07/21/22 02:03> Surgical History: Surgical History History of ankle surgery History of appendectomy History of back surgery Hx of cholecystectomy <Charo Borjas NP - Last Filed: 07/21/22 02:03> Family History Family History: Family History Mother COPD (chronic obstructive pulmonary disease) <Charo Borjas NP - Last Filed: 07/21/22 02:03> Social History Social History: Social History Household Members: None Household Members Other:: Assisted in [place] Housing: Homeless Housing Other:: Sleeps on the couch at [facility] house Do you presently have visiting nurse or other home services: No Unable to assess alcohol history related to: Unknown Alcohol intake: unknown Patient Tobacco Use Status: Current everyday Tobacco user Tobacco use type: Cigarette Cigarette Packs Per Day: 3 Cigarettes Per Day: 2 Years Smoked: 34 e-Cigarette/Vaping Use: Former Use Second Hand Smoke Exposure: Yes Substance Use Type: Crack/Cocaine Advance Directives: Yes Advance Directives on File: Yes Advance Directives Date on File: 06/17/22 service: No Current occupational status: unemployed and disabled Sexual orientation: Straight/Heterosexual <Charo Borjas NP - Last Filed: 07/21/22 02:03> Physical Exam ED Vital Signs: Vital Signs - 24 hr 07/20/22 23:41 07/21/22 00:42 07/21/22 03:59 Temperature 97.8 F Pulse Rate 90 92 94 Respiratory Rate 16 18 16 Blood Pressure 122/69 125/81 127/82 Pulse Oximetry 94 95 96 Oxygen Delivery Method Room Air Room Air Room Air BMI result Body Mass Index 43.2 <Charo Borjas NP - Last Filed: 07/21/22 02:03> Vital Signs - 24 hr 07/20/22 23:41 07/21/22 00:42 07/21/22 03:59 Temperature 97.8 F Pulse Rate 90 92 94 Respiratory Rate 16 18 16 Blood Pressure 122/69 125/81 127/82 Pulse Oximetry 94 95 96 Oxygen Delivery Method Room Air Room Air Room Air BMI result Body Mass Index 43.2 <Paola Gabriel MD - Last Filed: 07/21/22 05:45> Appearance: Alert. Oriented X3. No acute distress. Eyes: Pupils equal, round and reactive to light. ENT: Pharynx normal. Neck: Normal inspection. Neck supple. CVS: Normal heart rate and rhythm. Pulses normal. Respiratory: No respiratory distress. Breath sounds normal. Abdomen: Soft and diffusely tender to palpation. No rigidity or distention. Skin: Skin warm and dry. Normal skin color. Normal skin turgor. Extremities: No lower extremity edema. Moves all extremities against resistance. Gait well-balanced well coordinated. Neuro: No motor deficit. No sensory deficit. Cranial nerves 2-12 intact <Charo Borjas NP - Last Filed: 07/21/22 02:03> Course Course Course Narrative: 52-year-old female presents with 10/10 abdominal pain with nausea, vomiting, diarrhea, flu-like symptoms for approximately 4 days. Interesting to note, that she did not report these symptoms yesterday when she presented for evaluation of her parotid gland mass. Patient states that she feels got that she had these symptoms yesterday. At this time patient is sitting comfortably in her bed, with even unlabored respirations, stable vital signs that are within normal limits. States to have 10/10 abdominal pain on minimal palpation. At this time will order lab values, COVID influenza and RSV testing. 01:18 CBC Chem 7 are within normal limits. Glucose is 118. 02:00 COVID influenza RSV is negative. Urinalysis is pending. Sign out to Dr. Gabriel. <Charo Borjas NP - Last Filed: 07/21/22 02:03> MDM - Abdominal Pain MDM Narrative Medical decision making narrative: COVID, influenza, UTI <Charo Borjas NP - Last Filed: 07/21/22 02:03> COVID, influenza, UTI Urine positive for UTI. Will start Macrobid. Will discharge patient home. In stable condition <Paola Gabriel MD - Last Filed: 07/21/22 05:45> Differential Diagnosis Differential diagnosis: Likely abdominal pain, gastroenteritis and gastritis <Charo Borjas NP - Last Filed: 07/21/22 02:03> Medical Records Attestation: I reviewed the patient's medical records. <Charo Borjas NP - Last Tera ed: 07/21/22 02:03> Lab Data Attestation: I reviewed the patient's lab results. <Charo Borjas NP - Last Filed: 07/21/22 02:03> Result diagrams: : 07/21/22 00:19 07/21/22 00:19 <Charo Borjas NP - Last Filed: 07/21/22 02:03> Labs: Lab Results 07/21/22 07/21/22 07/21/22 Range/Units 00:19 00:19 00:19 WBC 7.5 (4.8-10.8) X10*3/uL RBC 4.36 (4.20-5.50) X10*6/uL Hgb 13.1 (12.0-16.0) g/dl Hct 39.4 (37.0-47.0) % MCV 90.4 (80.0-98.0) fL MCH 30.0 (27.0-33.0) pg MCHC 33.2 (31.0-35.0) g/dl RDW 13.2 (11.0-16.0) % Plt Count 287 D (160-400) X10*3/uL MPV 9.6 (9.4-12.3) fL Immature Gran % (Auto) 0.3 (0.0-0.4) % Neut % (Auto) 57.9 (45-73) % Lymph % (Auto) 32.0 (20-40) % [place] % (Auto) 7.4 (2-11) % Eos % (Auto) 1.3 (0-4) % Baso % (Auto) 1.1 (0-2) % Lymph # (Auto) 2.4 (1.2-4.9) X10*3/uL [place] # (Auto) 0.6 (0.1-1.2) X10*3/uL Eos # (Auto) 0.1 (0.0-0.4) X10*3/uL Baso # (Auto) 0.1 (0.0-0.2) X10*3/uL Abs Immat Gran (auto) 0.02 (0.00-0.03) X10*3/uL Absolute Neuts (auto) 4.3 (2.0-8.3) x10*3/uL Absolute Nucleated RBC 0.000 (0.0-0.012) X10*3/uL Nucleated RBC % (auto) 0.0 (0.0-0.2) /100WBC Sodium 141 (135-145) mmol/L Potassium 3.8 (3.3-5.1) mmol/L Chloride 102 (96-108) mmol/L Carbon Dioxide 24 (22-29) mmol/L Anion Gap 19 (12-20) BUN 13 (9-16) mg/dL Creatinine 0.70 (0.5-1.4) mg/dL Estim Creat Clear Calc 126.3 Estimated GFR > 60 Random Glucose 118 H (60-115) mg/dL Calcium 9.7 (8.4-10.2) mg/dL Total Bilirubin 0.5 (0.0-1.0) mg/dL Direct Bilirubin 0.2 (0.0-0.5) mg/dL AST 16 (5-31) U/L ALT 26 (0-31) U/L Alkaline Phosphatase 76 (39-117) U/L Total Protein 7.1 (6.5-8.0) g/dL Albumin 4.5 (3.5-5.0) g/dL Lipase 19 (8-78) U/L Urine Color Urine Appearance Urine pH (5.0-9.0) Ur Specific [place] (1.005-1.025) Urine Protein (Neg-Trace) mg/dL Urine Glucose (UA) (Negative) mg/dL Urine Ketones (Negative) mg/dL Urine Blood (Negative) Urine Nitrite (Negative) Ur Leukocyte Esterase (Negative) Urine RBC (0-2) /HPF Urine WBC (0-5) /HPF Ur Squamous Epith Cells (0-2) /HPF Urine Bacteria (None Seen) Hyaline Casts (0-2) /LPF Influenza Type A (PCR) NEGATIVE (Negative) Influenza Type B (PCR) NEGATIVE (Negative) RSV RNA Qual (PCR) NEGATIVE (Negative) SARS-CoV-2 RNA (RT-PCR) NEGATIVE (Negative) 07/21/22 Range/Units 01:58 WBC (4.8-10.8) X10*3/uL RBC (4.20-5.50) X10*6/uL Hgb (12.0-16.0) g/dl Hct (37.0-47.0) % MCV (80.0-98.0) fL MCH (27.0-33.0) pg MCHC (31.0-35.0) g/dl RDW (11.0-16.0) % Plt Count (160-400) X10*3/uL MPV (9.4-12.3) fL Immature Gran % (Auto) (0.0-0.4) % Neut % (Auto) (45-73) % Lymph % (Auto) (20-40) % [place] % (Auto) (2-11) % Eos % (Auto) (0-4) % Baso % (Auto) (0-2) % Lymph # (Auto) (1.2-4.9) X10*3/uL [place] # (Auto) (0.1-1.2) X10*3/uL Eos # (Auto) (0.0-0.4) X10*3/uL Baso # (Auto) (0.0-0.2) X10*3/uL Abs Immat Gran (auto) (0.00-0.03) X10*3/uL Absolute Neuts (auto) (2.0-8.3) x10*3/uL Absolute Nucleated RBC (0.0-0.012) X10*3/uL Nucleated RBC % (auto) (0.0-0.2) /100WBC Sodium (135-145) mmol/L Potassium (3.3-5.1) mmol/L Chloride (96-108) mmol/L Carbon Dioxide (22-29) mmol/L Anion Gap (12-20) BUN (9-16) mg/dL Creatinine (0.5-1.4) mg/dL Estim Creat Clear Calc Estimated GFR Random Glucose (60-115) mg/dL Calcium (8.4-10.2) mg/dL Total Bilirubin (0.0-1.0) mg/dL Direct Bilirubin (0.0-0.5) mg/dL AST (5-31) U/L ALT (0-31) U/L Alkaline Phosphatase (39-117) U/L Total Protein (6.5-8.0) g/dL Albumin (3.5-5.0) g/dL Lipase (8-78) U/L Urine Color Dark Yellow Urine Appearance Cloudy Urine pH 5.0 (5.0-9.0) Ur Specific [place] >= 1.030 H (1.005-1.025) Urine Protein Trace (Neg-Trace) mg/dL Urine Glucose (UA) Negative (Negative) mg/dL Urine Ketones Negative (Negative) mg/dL Urine Blood Negative (Negative) Urine Nitrite Negative (Negative) Ur Leukocyte Esterase Moderate (2+) H (Negative) Urine RBC 0-2 (0-2) /HPF Urine WBC >50 H (0-5) /HPF Ur Squamous Epith Cells 11-20 (0-2) /HPF Urine Bacteria 3+ (None Seen) Hyaline Casts 0-2 (0-2) /LPF Influenza Type A (PCR) (Negative) Influenza Type B (PCR) (Negative) RSV RNA Qual (PCR) (Negative) SARS-CoV-2 RNA (RT-PCR) (Negative) <Charo Borjas, BENDING PRESS OPERATOR - Last Filed: 07/21/22 02:03> Lab Results 07/21/22 07/21/22 07/21/22 Range/Units 00:19 00:19 00:19 WBC 7.5 (4.8-10.8) X10*3/uL RBC 4.36 (4.20-5.50) X10*6/uL Hgb 13.1 (12.0-16.0) g/dl Hct 39.4 (37.0-47.0) % MCV 90.4 (80.0-98.0) fL MCH 30.0 (27.0-33.0) pg MCHC 33.2 (31.0-35.0) g/dl RDW 13.2 (11.0-16.0) % Plt Count 287 D (160-400) X10*3/uL MPV 9.6 (9.4-12.3) fL Immature Gran % (Auto) 0.3 (0.0-0.4) % Neut % (Auto) 57.9 (45-73) % Lymph % (Auto) 32.0 (20-40) % [place] % (Auto) 7.4 (2-11) % Eos % (Auto) 1.3 (0-4) % Baso % (Auto) 1.1 (0-2) % Lymph # (Auto) 2.4 (1.2-4.9) X10*3/uL [place] # (Auto) 0.6 (0.1-1.2) X10*3/uL Eos # (Auto) 0.1 (0.0-0.4) X10*3/uL Baso # (Auto) 0.1 (0.0-0.2) X10*3/uL Abs Immat Gran (auto) 0.02 (0.00-0.03) X10*3/uL Absolute Neuts (auto) 4.3 (2.0-8.3) x10*3/uL Absolute Nucleated RBC 0.000 (0.0-0.012) X10*3/uL Nucleated RBC % (auto) 0.0 (0.0-0.2) /100WBC Sodium 141 (135-145) mmol/L Potassium 3.8 (3.3-5.1) mmol/L Chloride 102 (96-108) mmol/L Carbon Dioxide 24 (22-29) mmol/L Anion Gap 19 (12-20) BUN 13 (9-16) mg/dL Creatinine 0.70 (0.5-1.4) mg/dL Estim Creat Clear Calc 126.3 Estimated GFR > 60 Random Glucose 118 H (60-115) mg/dL Calcium 9.7 (8.4-10.2) mg/dL Total Bilirubin 0.5 (0.0-1.0) mg/dL Direct Bilirubin 0.2 (0.0-0.5) mg/dL AST 16 (5-31) U/L ALT 26 (0-31) U/L Alkaline Phosphatase 76 (39-117) U/L Total Protein 7.1 (6.5-8.0) g/dL Albumin 4.5 (3.5-5.0) g/dL Lipase 19 (8-78) U/L Urine Color Urine Appearance Urine pH (5.0-9.0) Ur Specific [place] (1.005-1.025) Urine Protein (Neg-Trace) mg/dL Urine Glucose (UA) (Negative) mg/dL Urine Ketones (Negative) mg/dL Urine Blood (Negative) Urine Nitrite (Negative) Ur Leukocyte Esterase (Negative) Urine RBC (0-2) /HPF Urine WBC (0-5) /HPF Ur Squamous Epith Cells (0-2) /HPF Urine Bacteria (None Seen) Hyaline Casts (0-2) /LPF Influenza Type A (PCR) NEGATIVE (Negative) Influenza Type B (PCR) NEGATIVE (Negative) RSV RNA Qual (PCR) NEGATIVE (Negative) SARS-CoV-2 RNA (RT-PCR) NEGATIVE (Negative) 07/21/22 Range/Units 01:58 WBC (4.8-10.8) X10*3/uL RBC (4.20-5.50) X10*6/uL Hgb (12.0-16.0) g/dl Hct (37.0-47.0) % MCV (80.0-98.0) fL MCH (27.0-33.0) pg MCHC (31.0-35.0) g/dl RDW (11.0-16.0) % Plt Count (160-400) X10*3/uL MPV (9.4-12.3) fL Immature Gran % (Auto) (0.0-0.4) % Neut % (Auto) (45-73) % Lymph % (Auto) (20-40) % [place] % (Auto) (2-11) % Eos % (Auto) (0-4) % Baso % (Auto) (0-2) % Lymph # (Auto) (1.2-4.9) X10*3/uL [place] # (Auto) (0.1-1.2) X10*3/uL Eos # (Auto) (0.0-0.4) X10*3/uL Baso # (Auto) (0.0-0.2) X10*3/uL Abs Immat Gran (auto) (0.00-0.03) X10*3/uL Absolute Neuts (auto) (2.0-8.3) x10*3/uL Absolute Nucleated RBC (0.0-0.012) X10*3/uL Nucleated RBC % (auto) (0.0-0.2) /100WBC Sodium (135-145) mmol/L Potassium (3.3-5.1) mmol/L Chloride (96-108) mmol/L Carbon Dioxide (22-29) mmol/L Anion Gap (12-20) BUN (9-16) mg/dL Creatinine (0.5-1.4) mg/dL Estim Creat Clear Calc Estimated GFR Random Glucose (60-115) mg/dL Calcium (8.4-10.2) mg/dL Total Bilirubin (0.0-1.0) mg/dL Direct Bilirubin (0.0-0.5) mg/dL AST (5-31) U/L ALT (0-31) U/L Alkaline Phosphatase (39-117) U/L Total Protein (6.5-8.0) g/dL Albumin (3.5-5.0) g/dL Lipase (8-78) U/L Urine Color Dark Yellow Urine Appearance Cloudy Urine pH 5.0 (5.0-9.0) Ur Specific [place] >= 1.030 H (1.005-1.025) Urine Protein Trace (Neg-Trace) mg/dL Urine Glucose (UA) Negative (Negative) mg/dL Urine Ketones Negative (Negative) mg/dL Urine Blood Negative (Negative) Urine Nitrite Negative (Negative) Ur Leukocyte Esterase Moderate (2+) H (Negative) Urine RBC 0-2 (0-2) /HPF Urine WBC >50 H (0-5) /HPF Ur Squamous Epith Cells 11-20 (0-2) /HPF Urine Bacteria 3+ (None Seen) Hyaline Casts 0-2 (0-2) /LPF Influenza Type A (PCR) (Negative) Influenza Type B (PCR) (Negative) RSV RNA Qual (PCR) (Negative) SARS-CoV-2 RNA (RT-PCR) (Negative) <Paola Gabriel MD - Last Filed: 07/21/22 05:45> Discharge Plan Discharge Clinical Impression: Abdominal pain, Nausea vomiting and diarrhea, Urinary tract infection <Charo Borjas NP - Last Filed: 07/21/22 02:03> Patient Disposition: Home, Self-Care <Charo Borjas NP - Last Filed: 07/21/22 02:03> Instructions: Urinary Tract Infection in Women (ED), Acute Nausea and Vomiting (ED), Acute Diarrhea (ED), Abdominal Pain (ED) <Charo Borjas NP - Last Filed: 07/21/22 02:03> Additional Instructions: You were evaluated for abdominal pain nausea vomiting and diarrhea. Your lab values are within normal limits, COVID influenza RSV are negative. Urinalysis is negative. Please follow-up with primary care physician as needed. Return to the emergency department for any new, concerning, worsening symptoms. <Charo Borjas NP - Last Filed: 07/21/22 02:03> Prescriptions: New nitrofurantoin monohyd/m-cryst [Macrobid] 100 mg capsule 100 mg PO Q12H 7 Days Qty: 14 0RF Rx Instructions: must administer with a meal/food No Action albuterol sulfate 90 mcg/actuation HFA aerosol inhaler 2 puff inhalation Q4-6H PRN (Reason: shortness of breath or wheezing) 30 Days Qty: 1 0RF ferrous sulfate 324 mg (65 mg iron) tablet,delayed release (DR/EC) 324 mg PO DAILY 30 Days Qty: 30 0RF oxcarbazepine 150 mg tablet 1 tab PO BID cyanocobalamin (vitamin B-12) 100 mcg tablet 1 tab PO DAILY valacyclovir 1 gram tablet 1 tab PO BID olanzapine 10 mg tablet 1 tab PO BEDTIME capsaicin 0.025 % cream 1 appl topical QID PRN (Reason: pain) gabapentin 400 mg capsule 1 cap PO TID trazodone 100 mg tablet 2 tab PO BEDTIME benztropine 1 mg tablet 1 tab PO BID Spiriva with HandiHaler 18 mcg capsule, w/inhalation device 1 cap inhalation DAILY cholecalciferol (vitamin D3) 25 mcg (1,000 unit) tablet 1 tab PO DAILY lithium carbonate 600 mg capsule 1 cap PO BID omeprazole 20 mg capsule,delayed release(DR/EC) 20 mg PO DAILY@0630 nicotine 21 mg/24 hr Patch 24 Hour 21 mg transdermal DAILY Qty: 30 0RF <Charo Borjas NP - Last Filed: 07/21/22 02:03> Referrals: Physician,Unknown J [Primary Care Provider] - <Charo Borjas NP - Last Filed: 07/21/22 02:03>
[2022-07-20 23:41] VITALS: BP 122/69; BP 132/85; PULSE 90; RESP 16; TEMP 36.6; O2SAT 94; O2SAT 96; BMI 43.2
[2022-07-21 00:24] LABS: MANUAL DIFF FLAG NO
[2022-07-21 00:26] LABS: Basophils Absolute Auto 0.1 X10*3/uL (0.0-0.2); Basophils Percent Auto 1.1 % (0-2); Eosinophils Absolute Auto 0.1 X10*3/uL (0.0-0.4); Eosinophils Percent Auto 1.3 % (0-4); Hematocrit 39.4 % (37.0-47.0); Hemoglobin 13.1 g/dl (12.0-16.0); Imm Gran Abs Auto 0.02 X10*3/uL (0.00-0.03); Imm Gran Pct Auto 0.3 % (0.0-0.4); Lymphocytes Absolute Auto 2.4 X10*3/uL (1.2-4.9); Mean Corpuscular HGB Conc 33.2 g/dl (31.0-35.0); Mean Corpuscular Volume 90.4 fL (80.0-98.0); Mean Platelet Volume 9.6 fL (9.4-12.3); Monocytes Absolute Auto 0.6 X10*3/uL (0.1-1.2); Monocytes Percent Auto 7.4 % (2-11); Neutrophils Absolute Auto 4.3 x10*3/uL (2.0-8.3); Neutrophils Percent Auto 57.9 % (45-73); Platelet Count 287 X10*3/uL (160-400); Red Blood Count 4.36 X10*6/uL (4.20-5.50); Red Cell Distribution Width 13.2 % (11.0-16.0); White Blood Count 7.5 X10*3/uL (4.8-10.8)
[2022-07-21 00:42] VITALS: BP 125/81; PULSE 92; RESP 18; O2SAT 95
[2022-07-21 00:43] LABS: Alanine Aminotransferase 26 U/L (0-31); Albumin Level 4.5 g/dL (3.5-5.0); Alkaline Phosphatase 76 U/L (39-117); Anion Gap 19 (12-20); Aspartate Amino Transferase 16 U/L (5-31); Bilirubin Direct 0.2 mg/dL (0.0-0.5); Bilirubin Total 0.5 mg/dL (0.0-1.0); Blood Urea Nitrogen 13 mg/dL (9-16); Calcium 9.7 mg/dL (8.4-10.2); Carbon Dioxide 24 mmol/L (22-29); Chloride 102 mmol/L (96-108); Creatinine Clr Calc Pharmacy 126.3; Estimated Glomerular Filt Rate > 60; Glucose Random 118 mg/dL (60-115); Lipase 19 U/L (8-78); Potassium 3.8 mmol/L (3.3-5.1); Sodium 141 mmol/L (135-145); Total Protein 7.1 g/dL (6.5-8.0)
[2022-07-21 01:46] LABS: Influenza A PCR NEGATIVE (Negative); Influenza B PCR NEGATIVE (Negative); Resp Syncy Virus RNA Qual PCR NEGATIVE (Negative); SARS COV2 PCR INHOUSE NEGATIVE (Negative)
[2022-07-21 02:05] LABS: Appearance Urine Cloudy; Color Urine Dark Yellow; Glucose Urine UA Negative (Negative); Leukocyte Esterase Urine Moderate (2+) (Negative); Nitrite Urine Negative (Negative); Specific Gravity - Urine >= 1.030 (1.005-1.025); UMIC TRIGGER UACC YES; Urine Blood Negative (Negative); Urine Ketones Negative (Negative); Urine Protein Trace mg/dL (Neg-Trace)
[2022-07-21 02:10] LABS: Bacteria Urine 3+ (None Seen); Hyaline Casts Urine 0-2 /LPF (0-2); RBC Urine 0-2 /HPF (0-2); UACC Culture Trigger YES; WBC Urine >50 /HPF (0-5)
[2022-07-21 03:59] VITALS: BP 127/82; PULSE 94; RESP 16; O2SAT 96
== END 2022-07-21 05:56 | disposition home or self-care (01) ==
PROVIDERS: Nurse Practitioner Family; Emergency Provider Emergency Medicine Emergency Medical Services
DX: N39.0 Urinary tract infection, site not specified (principal); R10.13 Epigastric pain; R11.2 Nausea with vomiting, unspecified; Z20.822 Contact with and (suspected) exposure to COVID-19; Z79.899 Other long term (current) drug therapy
CPT/HCPCS: 0241U; 36415; 80048; 80076; 81001; 83690; 85025; 87086; 99283

== ENCOUNTER 2022-07-23 00:44 | Emergency (ER) | payer MEDICAID, SELFPAY ==
[2022-07-23 00:51] VITALS: BP 120/66; PULSE 87; RESP 14; TEMP 36.4; O2SAT 94; BMI 40.7
[2022-07-23 01:21] LABS: Appearance Urine Cloudy; Color Urine Yellow; Glucose Urine UA Negative (Negative); Leukocyte Esterase Urine Moderate (2+) (Negative); Nitrite Urine Negative (Negative); PH 5.5 (5.0-9.0); Specific Gravity - Urine >= 1.030 (1.005-1.025); UMIC TRIGGER UA YES; Urine Blood Negative (Negative); Urine Ketones Trace mg/dL (Negative); Urine Protein Trace mg/dL (Neg-Trace)
--- NOTE | 2022-07-23 01:25 | ED.PSYCH ---
HPI - Psych General Chief Complaint: Psychiatric Symptoms Stated Complaint: psych eval Time Seen by Provider: 07/23/22 01:12 Source: patient Mode of arrival: EMS Limitations: no limitations History of Present Illness HPI Narrative: 52-year-old female who presents emergency department for evaluation of depression suicidal ideation. The patient has a left neck mass located behind her ear. She states she met with her cancer doctor 3 days ago to discuss surgery on this made her upset. She states she does have a surgeon at [facility] was willing to operate on the mass but she was told that the procedure is a big procedure in this got her upset and made her anxious. She told me that her? mind was really scared and would be really happy and then really scared again ?. She states that this then triggered suicidal thoughts in her. She states she has been starving herself and has not been eating or drinking for 5 days. She states she has been thinking about getting a knife and cutting her wrists. She also thinks about jumping off a bridge. The patient did have a surgical consult on 03/19/2022 regarding her left neck mass. The surgical note states that the patient has a complex cyst of the left parotid consistent which was biopsied and is acute cell adenitis. The patient was seen here in the emergency department on 07/20/2022 for abdominal pain, nausea, vomiting, diarrhea, she did not mention suicidal ideation at that time or that she was starving herself and not eating. The patient's workup at that time included a normal CBC and CMP. The patient's influenza, RSV and COVID-19 tests were negative. Patient's urine did reveal a significant number squamous cells and the culture grew mixed blossom suggest that she does not have a urinary tract infection. Her urine tox screen was positive for cocaine. MD complaint: suicidal ideation and feels depressed Onset (ago): day(s) (3) Duration: constant History of same: Yes Relieving factors: none Exacerbating factors: other (Thinking about her left neck mass and the scheduled surgery) Context: significant life stressor Associated psychiatric symptoms: depression, suicidal ideation and other (Insomnia) Treatments prior to arrival: none and other (Patient states she has been compliant with her medications) If self harm: admits thoughts of self harm and has plan (Cut herself, jump off a bridge, starve herself) Related Data Home Medications Medication Instructions Recorded Confirmed capsaicin 0.025 % topical cream 1 appl topical QID PRN pain 07/02/22 07/23/22 benztropine 1 mg tablet 1 tab PO BID 07/23/22 07/23/22 cholecalciferol (vitamin D3) 25 1 tab PO DAILY 07/23/22 07/23/22 mcg (1,000 unit) tablet gabapentin 400 mg capsule 1 cap PO TID 07/23/22 07/23/22 omeprazole 20 mg capsule,delayed 1 cap PO QAM 07/23/22 07/23/22 release oxcarbazepine 150 mg tablet 1 tab PO BID 07/23/22 07/23/22 sertraline 50 mg tablet 1 tab PO DAILY 07/23/22 07/23/22 tiotropium bromide 18 mcg capsule 1 cap inhalation DAILY 07/23/22 07/23/22 with inhalation device (Spiriva with HandiHaler) trazodone 100 mg tablet 2 tab PO BEDTIME 07/23/22 07/23/22 valacyclovir 1 gram tablet 1 tab PO BID 07/23/22 07/23/22 Previous Rx's Medication Instructions Recorded albuterol sulfate 90 mcg/actuation 2 puff inhalation Q4-6H PRN 04/20/22 aerosol inhaler shortness of breath or wheezing 30 days #1 inhaler ferrous sulfate 324 mg (65 mg 324 mg PO DAILY 30 days #30 tabs 05/18/22 iron) tablet,delayed release nicotine 21 mg/24 hr daily 21 mg transdermal DAILY #30 ea 06/07/22 transdermal patch Allergies Allergy/AdvReac Type Severity Reaction Status Date / Time aspirin [Aspirin] Allergy Severe HIVES,THROAT Verified 06/13/22 19:33 SWELLS bee pollen [BEE STINGS] Allergy Severe ANAPHYLAXIS Verified 06/13/22 19:33 diphenhydramine Allergy Severe hives, Verified 06/13/22 19:33 [From BENADRYL ALLERGY] throat swells Penicillins [PCN] Allergy Severe HIVES Verified 06/13/22 19:33 THROAT SWELLS Sulfa (Sulfonamide Allergy Intermediate HIVES Verified 06/13/22 19:33 Antibiotics) [SULFA (SULFONAMIDE ANTIBIOTICS)] tramadol [TRAMADOL] Allergy Intermediate ITCHING Verified 06/13/22 19:33 latex [LATEX] Allergy Unknown UNKNOWN Verified 06/13/22 19:33 penicillin G Allergy Unknown Unknown Verified 06/13/22 19:33 levofloxacin [From Levaquin] Allergy Hives Verified 06/13/22 19:33 hydroxyzine AdvReac Severe restless Verified 06/13/22 19:33 legs seafood AdvReac Stomach Verified 03/17/22 12:07 Upset Review of Systems Review of Systems: Yes all other systems are reviewed and are negative [facility] Past Medical History [facility] Narrative: Social history: She smokes 3-4 cigarettes per day, she was smoking up to 1 and half packs per day, she has been smoking cigarettes for 34 years. She occasionally drinks alcohol. She does admit to using cocaine 1 week prior. Medical History Asthma exacerbation in COPD Asthma-COPD overlap syndrome Bipolar disorder Bipolar I disorder Borderline personality disorder COPD (chronic obstructive pulmonary disease) Depression Drug abuse Herpes Intermittent explosive disorder Mass of parotid gland FABIOLA (obstructive sleep apnea) Post traumatic stress disorder (PTSD) Pseudoseizures Tobacco use Surgical History History of ankle surgery History of appendectomy History of back surgery Hx of cholecystectomy Family History Family History Mother COPD (chronic obstructive pulmonary disease) Social History Social History Household Members: None Household Members Other:: Snf in [place] Housing: Homeless Housing Other:: Sleeps on the couch at [facility] house Do you presently have visiting nurse or other home services: No Unable to assess alcohol history related to: Unknown Alcohol intake: unknown Patient Tobacco Use Status: Current everyday Tobacco user Tobacco use type: Cigarette Cigarette Packs Per Day: 3 Cigarettes Per Day: 2 Years Smoked: 34 e-Cigarette/Vaping Use: Former Use Second Hand Smoke Exposure: Yes Substance Use Type: Crack/Cocaine Advance Directives: Yes Advance Directives on File: Yes Advance Directives Date on File: 06/17/22 service: No Current occupational status: unemployed and disabled Sexual orientation: Straight/Heterosexual Physical Exam Vital Signs: Vital Signs: Last Vital Signs Temp 97.6 F 07/23/22 00:51 Pulse 87 07/23/22 00:51 Resp 14 07/23/22 00:51 BP 120/66 07/23/22 00:51 Pulse Ox 94 07/23/22 00:51 O2 Del Method 07/23/22 00:51 BMI result Body Mass Index 40.7 Const: General: cooperative and no acute distress Orientation/consciousness: oriented to person and oriented to place Limitations: no limitations HEENT: Head: Yes normal to inspection, Yes normocephalic and Yes atraumatic Ears: external ears normal General nose exam: Normal external nose present Face and sinus: Yes normal facial exam Mouth: Normal oral and palatal mucosa present Throat: Yes posterior oropharynx normal Eyes: General: appearance normal, both eyes and all related structures Pupils: Equal, round and reactive pupils present Neck: Other: Large, left neck mass behind the left ear, flocculent consistent with a cyst Chest: Chest palpation & inspection: normal inspection of the chest and normal palpation of entire chest wall Resp: Effort & Inspection: normal respiratory effort and able to speak in complete sentences Auscultation: clear to auscultation bilaterally Cardio: Rate: regular rate Rhythm: regular rhythm Heart sounds: S1 normal heart sound present, S2 normal heart sound present and no murmurs GI: Inspection: Yes normal to inspection Palpation (GI): Soft to palpation, nontender and no guarding Auscultation: normal bowel sounds : General: Yes no CVA tenderness Back/Spine/Pelvis: Back: no CVA tenderness Skin: General skin exam: no rashes or lesions noted Neuro: General: oriented to person and oriented to place Cranial nerves: Yes CN's II-XII intact bilaterally and Yes Equal, round and reactive pupils present Cognition (Neuro): normal cognition Motor exam (neuro): 5/5 motor strength present throughout Extrem: General: Yes normal to inspection Psych: Appearance: grossly normal Speech and movement: Normal speech and movement present Affect: normal affect Attitude: cooperative Thought process: Normal thought process present Thought content: Suicidality present Course Course Course Narrative: 52-year-old female who presents emergency department for evaluation of depression and suicidal ideation with a plan to cut herself, starve herself or jump off a bridge. The patient was seen on 07/20/2022 for abdominal pain, nausea, vomiting and diarrhea with negative laboratory workup. Patient's examination is unremarkable at this time, she does have a cystic mass to her left neck but this is chronic and the patient plans on having surgery at [facility] for this mass. I did order Ativan 1 mg orally for the patient. 0136: Start physician observation: We will obtain a [facility] consult on this patient. [facility] consult will be obtained. The patient will be kept in physician observation until an appropriate obtained on this patient. 0331: Physician observation continued: COVID-19 was negative. Urine tox was positive for cocaine. The patient was evaluated by the [facility] clinician. At this time was felt that the patient is not suicidal or homicidal. The clinician felt that the patient's problems were more related to her homelessness, she is scheduled for a large surgery of the cystic mass to her left neck but the patient is not able to care for herself. [facility] recommended that we get a case management consult to see if this patient would qualify for longterm facility stay until she can get her surgery at [facility]. Therefore the patient will be kept in physician observation until Case Management can evaluate the patient in the morning. 0655: Physician observation continued: The patient remained calm cooperative throughout the night, the patient. The patient's medications were reconciled in her outpatient regions ordered by me. The patient will remain in physician observation until she can be evaluated by case management to determine if she qualifies for short-term longterm placement. MDM - Psych Lab Data Labs: Lab Results 07/23/22 07/23/22 07/23/22 Range/Units 01:09 01:09 01:09 Urine Color Yellow Urine Appearance Cloudy Urine pH 5.5 (5.0-9.0) Ur Specific [place] >= 1.030 H (1.005-1.025) Urine Protein Trace (Neg-Trace) mg/dL Urine Glucose (UA) Negative (Negative) mg/dL Urine Ketones Trace (Negative) mg/dL Urine Blood Negative (Negative) Urine Nitrite Negative (Negative) Ur Leukocyte Esterase Moderate (2+) H (Negative) Urine RBC 0-2 (0-2) /HPF Urine WBC 21-50 H (0-5) /HPF Ur Squamous Epith Cells >20 (0-2) /HPF Urine Bacteria 4+ (None Seen) Hyaline Casts 0-2 (0-2) /LPF Urine Opiates Screen Not Detected (Not Detect) Urine Fentanyl Screen Not Detected (Not Detect) Ur Barbiturates Screen Not Detected (Not Detect) Ur Phencyclidine Scrn Not Detected (Not Detect) Ur Amphetamines Screen Not Detected (Not Detect) U Benzodiazepines Scrn Not Detected (Not Detect) Urine Cocaine Screen POSITIVE H (Not Detect) U Marijuana (THC) Screen Not Detected (Not Detect) COVID-19 (ENDY) Negative (Negative) COVID-19 Clin Com See Note Discharge Plan Discharge Clinical Impression: Depression with suicidal ideation, Facial mass, Homeless Prescriptions: No Action albuterol sulfate 90 mcg/actuation HFA aerosol inhaler 2 puff inhalation Q4-6H PRN (Reason: shortness of breath or wheezing) 30 Days Qty: 1 0RF ferrous sulfate 324 mg (65 mg iron) tablet,delayed release (DR/EC) 324 mg PO DAILY 30 Days Qty: 30 0RF capsaicin 0.025 % cream 1 appl topical QID PRN (Reason: pain) oxcarbazepine 150 mg tablet 1 tab PO BID valacyclovir 1 gram tablet 1 tab PO BID trazodone 100 mg tablet 2 tab PO BEDTIME benztropine 1 mg tablet 1 tab PO BID omeprazole 20 mg capsule,delayed release(DR/EC) 1 cap PO QAM sertraline 50 mg tablet 1 tab PO DAILY Spiriva with HandiHaler 18 mcg capsule, w/inhalation device 1 cap inhalation DAILY cholecalciferol (vitamin D3) 25 mcg (1,000 unit) tablet 1 tab PO DAILY gabapentin 400 mg capsule 1 cap PO TID nicotine 21 mg/24 hr Patch 24 Hour 21 mg transdermal DAILY Qty: 30 0RF
[2022-07-23 01:27] LABS: Bacteria Urine 4+ (None Seen); Hyaline Casts Urine 0-2 /LPF (0-2); RBC Urine 0-2 /HPF (0-2); Squamous Epithelial Cell Urine >20 /HPF (0-2); WBC Urine 21-50 /HPF (0-5)
[2022-07-23] MEDS: LORazepam 1 MG TABLET PO (01:33)
[2022-07-23 01:36] LABS: COVID-19 Test Negative (Negative); IDNOW Serial# 16C4AD1C
[2022-07-23 01:37] LABS: Amphetamine Screen Urine Not Detected (Not Detect); Barbiturates, Urine Not Detected (Not Detect); Benzodiazepines Screen Urine Not Detected (Not Detect); Cannabinoid Screen Urine Not Detected (Not Detect); Cocaine Screen Urine POSITIVE (Not Detect); Fentanyl, urine Not Detected (Not Detect); Opiate Screen Urine Not Detected (Not Detect); Phencyclidine Screen Urine Not Detected (Not Detect)
--- NOTE | 2022-07-23 06:22 | PC.NURSE ---
Patient slept though the night, no distress observed/reported, patient engaged well with N, cleared for crises, recommended case management intervention for equipment operator intermodal yard placement due to patient inability to do self-care, med rec completed/pending provider's approval, behavior appropriate and non concerning, will continue to monitor.
--- NOTE | 2022-07-23 07:36 | PC.NURSE ---
Report recieved. PT currently resting, respirations even and unlabored, in no apparent distress. PT is case management follow up.
--- NOTE | 2022-07-23 08:05 | MHC.CARE ---
PIETER saw pt and recommended she be referred to Case Management for shelter placement. CARE Team contacts [facility] (?[address], [place] [address] ) and speaks with the manager data regarding the potential for placement at that facility. CARE Team was advised that there was a Slim chance of her being placed at that facility and that he would give it some thought. He suggested that he may need to meet pt prior to making a final decision. He will call back.
--- NOTE | 2022-07-23 09:23 | MHC.CARE ---
Roman, warehouse engineer from [facility], called regarding pt. He requested Covid vaccination information, PCP information, and a list of pt's medications. This information was faxed to him.
[2022-07-23 09:43] VITALS: BP 107/64; PULSE 75; TEMP 36.4; O2SAT 90
[2022-07-23] MEDS: Nicotine 21 MG PATCH.TD24 TRANSDERMA (09:46)
[2022-07-23] MEDS: Gabapentin 400 MG CAPSULE PO ×3 (09:46→21:12)
[2022-07-23] MEDS: Ferrous Sulfate 324 MG TABLET.DR PO (09:46)
[2022-07-23] MEDS: valACYclovir HCL 1,000 MG TABLET 1000 MG PO ×2 (09:46→21:12)
[2022-07-23] MEDS: Sertraline HCL 50 MG TABLET PO (09:46)
[2022-07-23] MEDS: Omeprazole 20 MG CAPSULE.DR PO (09:47)
[2022-07-23] MEDS: Cholecalciferol (Vitamin D3) 25 MCG TABLET PO (09:47)
[2022-07-23] MEDS: Benztropine Mesylate 1 MG TABLET PO ×2 (09:47→21:12)
[2022-07-23] MEDS: OXcarbazepine 150 MG TABLET PO ×2 (09:47→21:11)
--- NOTE | 2022-07-23 10:33 | MHC.CM.ED ---
Received case management consult overnight. Patient is well known to ER. Patient has an extensive medical and mental health history. Patient is currently homeless. Also has a history of substance abuse. Referral broadcasted in [facility] to see if any bed placement is available to her. This might be difficult to find due to positive tox screen. Continue to monitor for d/c needs.
--- NOTE | 2022-07-23 12:51 | MHC.CARE ---
Roman Delatorre ([phone]) from [facility] will be in route to meet with pt.
--- NOTE | 2022-07-23 14:07 | MHC.CARE ---
Roman Delatorre from [facility] met with pt and discussed admission. There is a need for additional information prior to admission being [id number] and granted. CARE Team will be working to secure the information.
--- NOTE | 2022-07-23 14:42 | MHC.CARE ---
Pt was given the phone to contact [facility] to set up an appointment with a provider per one of the requirements for admission at the [facility].
--- NOTE | 2022-07-23 15:00 | MHC.CARE ---
Spoke with [facility], a final decision won't be made until the end of the weekend. Pt will continue to remain in the ED until a final decision is made.
[2022-07-23 15:11] LABS: COVID-19 Test Positive (Negative); IDNOW Serial# 16C4AD1C
[2022-07-23] MEDS: Albuterol Sulfate 90 MCG 8 GM INHALER 2 PUFF INHALE (15:50)
[2022-07-23] MEDS: traZODone HCL 100 MG TABLET 200 MG PO (21:12)
[2022-07-24] MEDS: Omeprazole 20 MG CAPSULE.DR PO (05:39)
--- NOTE | 2022-07-24 06:47 | PC.NURSE ---
Patient slept through the night, no distress observed/reported, patient compliant with medication, COVID + compliant with quarantine protocol, VSS, behavior appropriate and non concerning, care team is coordinating bed at [facility] however due to COVID + status bed search may get delayed, will continue to monitor.
[2022-07-24 06:55] VITALS: BP 138/82; PULSE 79; RESP 21; TEMP 36.5; O2SAT 92
--- NOTE | 2022-07-24 07:29 | PC.NURSE ---
patient appears to remain asleep at present, respirations are even and unlabored patient appears in no distress.
[2022-07-24] MEDS: Nicotine 21 MG PATCH.TD24 TRANSDERMA (09:10)
[2022-07-24] MEDS: valACYclovir HCL 1,000 MG TABLET 1000 MG PO ×2 (09:11→20:02)
[2022-07-24] MEDS: Sertraline HCL 50 MG TABLET PO (09:11)
[2022-07-24] MEDS: Ferrous Sulfate 324 MG TABLET.DR PO (09:11)
[2022-07-24] MEDS: OXcarbazepine 150 MG TABLET PO ×2 (09:11→20:02)
[2022-07-24] MEDS: Cholecalciferol (Vitamin D3) 25 MCG TABLET PO (09:12)
[2022-07-24] MEDS: Benztropine Mesylate 1 MG TABLET PO ×2 (09:12→20:03)
[2022-07-24] MEDS: Gabapentin 400 MG CAPSULE PO ×3 (09:12→20:02)
[2022-07-24 15:52] VITALS: BP 148/96; PULSE 85; RESP 20; TEMP 36.5; O2SAT 94
[2022-07-24 19:10] VITALS: BP 153/94; PULSE 86; RESP 20; O2SAT 90
[2022-07-24] MEDS: traZODone HCL 100 MG TABLET 200 MG PO (20:03)
[2022-07-24 20:35] LABS: COVID-19 Test Negative (Negative); IDNOW Serial# 55D5AD1C
[2022-07-25 04:48] VITALS: BP 122/63; PULSE 76; RESP 18; TEMP 36.6; O2SAT 94
[2022-07-25] MEDS: Omeprazole 20 MG CAPSULE.DR PO (05:47)
--- NOTE | 2022-07-25 06:42 | PC.NURSE ---
Patient slept through the night, no distress observed/reported, patient compliant with medication, COVID retested result negative however quarantine protocol still in place patient retested again, VSS, behavior appropriate and non concerning, care team is coordinating bed at [facility], will continue to monitor.
--- NOTE | 2022-07-25 07:07 | PC.NURSE ---
patient appears to remain asleep at present respirations are even and unlabored patient appears in no distress
[2022-07-25] MEDS: valACYclovir HCL 1,000 MG TABLET 1000 MG PO ×2 (08:27→21:39)
[2022-07-25] MEDS: Nicotine 21 MG PATCH.TD24 TRANSDERMA (08:27)
[2022-07-25] MEDS: Benztropine Mesylate 1 MG TABLET PO ×2 (08:28→21:39)
[2022-07-25] MEDS: Ferrous Sulfate 324 MG TABLET.DR PO (08:28)
[2022-07-25] MEDS: OXcarbazepine 150 MG TABLET PO ×2 (08:28→21:39)
[2022-07-25] MEDS: Cholecalciferol (Vitamin D3) 25 MCG TABLET PO (08:28)
[2022-07-25] MEDS: Gabapentin 400 MG CAPSULE PO ×3 (08:28→21:39)
[2022-07-25] MEDS: Sertraline HCL 50 MG TABLET PO (08:28)
[2022-07-25] MEDS: Acetaminophen 325 MG TABLET 975 MG PO (21:39)
[2022-07-25] MEDS: traZODone HCL 100 MG TABLET 200 MG PO (21:39)
[2022-07-25 22:06] LABS: COVID-19 Test Negative (Negative); IDNOW Serial# 55D5AD1C
[2022-07-26] MEDS: Omeprazole 20 MG CAPSULE.DR PO (05:39)
[2022-07-26 05:54] VITALS: BP 138/87; PULSE 84; RESP 14; TEMP 37.1; O2SAT 92
--- NOTE | 2022-07-26 06:20 | PC.NURSE ---
Patient slept through the night, no distress observed/reported, patient compliant with medication, COVID retested result negative x 2, VSS, behavior appropriate and non concerning, care team is coordinating bed at [facility], will continue to monitor.
[2022-07-26] MEDS: Sertraline HCL 50 MG TABLET PO (08:02)
[2022-07-26] MEDS: OXcarbazepine 150 MG TABLET PO (08:02)
[2022-07-26] MEDS: Benztropine Mesylate 1 MG TABLET PO (08:02)
[2022-07-26] MEDS: Cholecalciferol (Vitamin D3) 25 MCG TABLET PO (08:02)
[2022-07-26] MEDS: Nicotine 21 MG PATCH.TD24 TRANSDERMA (08:02)
[2022-07-26] MEDS: valACYclovir HCL 1,000 MG TABLET 1000 MG PO (08:02)
[2022-07-26] MEDS: Gabapentin 400 MG CAPSULE PO ×2 (08:02→14:41)
[2022-07-26] MEDS: Ferrous Sulfate 324 MG TABLET.DR PO (08:03)
--- NOTE | 2022-07-26 08:41 | MHC.CARE ---
CARE Team left message with Roman Delatorre ([phone]) from [facility] regarding Pt.
[2022-07-26 08:49] VITALS: BP 110/74; PULSE 87; RESP 18; TEMP 37.1; O2SAT 94
--- NOTE | 2022-07-26 10:00 | MHC.CARE ---
CARE Team spoke with Roman Lawrence from [facility] and cannot confirm when/if Pt will have a bed. CARE Team to review next steps with CARE house cleaner supervisor.
--- NOTE | 2022-07-26 15:29 | MHC.CARE ---
Plan for Pt to be discharged to follow up with [facility] from the community.
== END 2022-07-26 16:07 | disposition home or self-care (01) ==
PROVIDERS: Emergency Medicine Emergency Medical Services; Nurse Practitioner Family; Emergency Provider Emergency Medicine
DX: U07.1 COVID-19 (principal); F32.A Depression, unspecified; R22.1 Localized swelling, mass and lump, neck; Z59.00 Homelessness unspecified; F14.10 Cocaine abuse, uncomplicated; R45.851 Suicidal ideations; F17.210 Nicotine dependence, cigarettes, uncomplicated; Z79.899 Other long term (current) drug therapy
CPT/HCPCS: 80307; 81001; 87086; 87635; 99284; 99285

== ENCOUNTER 2022-07-28 03:18 | Emergency (ER) | payer MEDICAID, SELFPAY ==
[2022-07-28 03:24] VITALS: BP 137/77; PULSE 80; RESP 18; TEMP 36.7; O2SAT 94; BMI 40.7
[2022-07-28 03:50] LABS: Appearance Urine Cloudy; Color Urine Yellow; Glucose Urine UA Negative (Negative); Leukocyte Esterase Urine Moderate (2+) (Negative); Nitrite Urine Negative (Negative); Specific Gravity - Urine >= 1.030 (1.005-1.025); UMIC TRIGGER UA YES; Urine Blood Negative (Negative); Urine Ketones Trace mg/dL (Negative); Urine Protein Trace mg/dL (Neg-Trace)
[2022-07-28 03:52] LABS: Bacteria Urine 4+ (None Seen); Hyaline Casts Urine 0-2 /LPF (0-2); RBC Urine 0-2 /HPF (0-2); WBC Urine >50 /HPF (0-5)
[2022-07-28 04:04] LABS: Amphetamine Screen Urine Not Detected (Not Detect); Barbiturates, Urine Not Detected (Not Detect); Benzodiazepines Screen Urine Not Detected (Not Detect); Cannabinoid Screen Urine Not Detected (Not Detect); Cocaine Screen Urine POSITIVE (Not Detect); Fentanyl, urine Not Detected (Not Detect); Opiate Screen Urine Not Detected (Not Detect); Phencyclidine Screen Urine Not Detected (Not Detect)
[2022-07-28 04:05] LABS: COVID-19 Test Negative (Negative)
--- NOTE | 2022-07-28 04:32 | ED.PSYCH ---
HPI - Psych General Chief Complaint: Psychiatric Symptoms Stated Complaint: SI Time Seen by Provider: 07/28/22 04:29 Source: patient Mode of arrival: EMS Limitations: no limitations History of Present Illness HPI Narrative: Patient with bipolar disorder depression but borderline personality disorder was seen here on 07/23 came back as feels suicidal with a plan to jump off the bridge denies any fever no chills no flank pain or urinary complaints Related Data Home Medications Medication Instructions Recorded Confirmed capsaicin 0.025 % topical cream 1 appl topical QID PRN pain 07/02/22 07/28/22 benztropine 1 mg tablet 1 tab PO BID 07/23/22 07/28/22 cholecalciferol (vitamin D3) 25 1 tab PO DAILY 07/23/22 07/28/22 mcg (1,000 unit) tablet gabapentin 400 mg capsule 1 cap PO TID 07/23/22 07/28/22 omeprazole 20 mg capsule,delayed 1 cap PO QAM 07/23/22 07/28/22 release oxcarbazepine 150 mg tablet 1 tab PO BID 07/23/22 07/28/22 sertraline 50 mg tablet 1 tab PO DAILY 07/23/22 07/28/22 tiotropium bromide 18 mcg capsule 1 cap inhalation DAILY 07/23/22 07/28/22 with inhalation device (Spiriva with HandiHaler) trazodone 100 mg tablet 2 tab PO BEDTIME 07/23/22 07/28/22 valacyclovir 1 gram tablet 1 tab PO BID 07/23/22 07/28/22 lithium carbonate 600 mg capsule 1 cap PO BID 07/24/22 07/28/22 Previous Rx's Medication Instructions Recorded albuterol sulfate 90 mcg/actuation 2 puff inhalation Q4-6H PRN 04/20/22 aerosol inhaler shortness of breath or wheezing 30 days #1 inhaler ferrous sulfate 324 mg (65 mg 324 mg PO DAILY 30 days #30 tabs 05/18/22 iron) tablet,delayed release nicotine 21 mg/24 hr daily 21 mg transdermal DAILY #30 ea 06/07/22 transdermal patch Allergies Allergy/AdvReac Type Severity Reaction Status Date / Time aspirin [Aspirin] Allergy Severe HIVES,THROAT Verified 06/13/22 19:33 SWELLS bee pollen [BEE STINGS] Allergy Severe ANAPHYLAXIS Verified 06/13/22 19:33 diphenhydramine Allergy Severe hives, Verified 06/13/22 19:33 [From BENADRYL ALLERGY] throat swells Penicillins [PCN] Allergy Severe HIVES Verified 06/13/22 19:33 THROAT SWELLS Sulfa (Sulfonamide Allergy Intermediate HIVES Verified 06/13/22 19:33 Antibiotics) [SULFA (SULFONAMIDE ANTIBIOTICS)] tramadol [TRAMADOL] Allergy Intermediate ITCHING Verified 06/13/22 19:33 latex [LATEX] Allergy Unknown UNKNOWN Verified 06/13/22 19:33 penicillin G Allergy Unknown Unknown Verified 06/13/22 19:33 levofloxacin [From Levaquin] Allergy Hives Verified 06/13/22 19:33 hydroxyzine AdvReac Severe restless Verified 06/13/22 19:33 legs seafood AdvReac Stomach Verified 03/17/22 12:07 Upset Review of Systems Review of Systems: Yes all other systems are reviewed and are negative PMFSH Past Medical History Medical History Asthma exacerbation in COPD Asthma-COPD overlap syndrome Bipolar disorder Bipolar I disorder Borderline personality disorder COPD (chronic obstructive pulmonary disease) Depression Drug abuse Herpes Intermittent explosive disorder Mass of parotid gland FABIOLA (obstructive sleep apnea) Post traumatic stress disorder (PTSD) Pseudoseizures Tobacco use Surgical History History of ankle surgery History of appendectomy History of back surgery Hx of cholecystectomy Family History Family History Mother COPD (chronic obstructive pulmonary disease) Social History Social History Household Members: None Household Members Other:: Intermediate in [place] Housing: Homeless Housing Other:: Sleeps on the couch at [facility] house Do you presently have visiting nurse or other home services: No Unable to assess alcohol history related to: Unknown Alcohol intake: unknown Patient Tobacco Use Status: Current everyday Tobacco user Tobacco use type: Cigarette Cigarette Packs Per Day: 3 Cigarettes Per Day: 2 Years Smoked: 34 e-Cigarette/Vaping Use: Former Use Second Hand Smoke Exposure: Yes Substance Use Type: Crack/Cocaine Advance Directives: Yes Advance Directives on File: Yes Advance Directives Date on File: 06/17/22 service: No Current occupational status: unemployed and disabled Sexual orientation: Straight/Heterosexual Physical Exam Vital Signs: Vital Signs: Last Vital Signs Temp 98.0 F 07/28/22 03:24 Pulse 80 07/28/22 03:24 Resp 18 07/28/22 03:24 BP 137/77 07/28/22 03:24 Pulse Ox 94 07/28/22 03:24 O2 Del Method 07/28/22 03:24 BMI result Body Mass Index 40.7 Appearance: Alert. Oriented X3. No acute distress. Eyes: PERRLA, No Nystagmus ENT: Pharynx normal. Oral Mucosa moist Neck: Normal inspection. Neck supple. CVS: Normal heart rate and rhythm. Pulses normal. Respiratory: No respiratory distress. Equal air entry bilateral, no wheezing/rales/rhonchi Abdomen: Soft and nontender. Bowel sounds are present, no mass palpable, no CVA tenderness Skin: Skin warm and dry. Normal skin color. Normal skin turgor. Extremities: No lower extremity edema. No calf tenderness psych: Feel depressed with SI no AVH or delusions Neuro: Oriented X 3. No motor deficit. No sensory deficit.No cerebellar signs , cranial nerves II-XII intact MDM - Psych MDM Narrative Medical decision making narrative: Patient with 4+ bacteria in the urine, will start on Ceftin, depression and suicidal ideation coming back 2nd time for the same will get the crisis evaluation Medical Records Attestation: I reviewed the patient's medical records. Lab Data Attestation: I reviewed the patient's lab results. Labs: Lab Results 07/28/22 07/28/22 07/28/22 Range/Units 03:42 03:42 03:42 Urine Color Yellow Urine Appearance Cloudy Urine pH 5.0 (5.0-9.0) Ur Specific [place] >= 1.030 H (1.005-1.025) Urine Protein Trace (Neg-Trace) mg/dL Urine Glucose (UA) Negative (Negative) mg/dL Urine Ketones Trace (Negative) mg/dL Urine Blood Negative (Negative) Urine Nitrite Negative (Negative) Ur Leukocyte Esterase Moderate (2+) H (Negative) Urine RBC 0-2 (0-2) /HPF Urine WBC >50 H (0-5) /HPF Ur Squamous Epith Cells 11-20 (0-2) /HPF Urine Bacteria 4+ (None Seen) Hyaline Casts 0-2 (0-2) /LPF Urine Opiates Screen Not Detected (Not Detect) Urine Fentanyl Screen Not Detected (Not Detect) Ur Barbiturates Screen Not Detected (Not Detect) Ur Phencyclidine Scrn Not Detected (Not Detect) Ur Amphetamines Screen Not Detected (Not Detect) U Benzodiazepines Scrn Not Detected (Not Detect) Urine Cocaine Screen POSITIVE H (Not Detect) U Marijuana (THC) Screen Not Detected (Not Detect) COVID-19 (ENDY) Negative (Negative) COVID-19 Clin Com See Note Discharge Plan Discharge Clinical Impression: Bipolar disorder, UTI (urinary tract infection), Suicidal ideation Patient Disposition: Still a Patient Prescriptions: No Action albuterol sulfate 90 mcg/actuation HFA aerosol inhaler 2 puff inhalation Q4-6H PRN (Reason: shortness of breath or wheezing) 30 Days Qty: 1 0RF ferrous sulfate 324 mg (65 mg iron) tablet,delayed release (DR/EC) 324 mg PO DAILY 30 Days Qty: 30 0RF capsaicin 0.025 % cream 1 appl topical QID PRN (Reason: pain) oxcarbazepine 150 mg tablet 1 tab PO BID valacyclovir 1 gram tablet 1 tab PO BID trazodone 100 mg tablet 2 tab PO BEDTIME benztropine 1 mg tablet 1 tab PO BID omeprazole 20 mg capsule,delayed release(DR/EC) 1 cap PO QAM sertraline 50 mg tablet 1 tab PO DAILY Spiriva with HandiHaler 18 mcg capsule, w/inhalation device 1 cap inhalation DAILY cholecalciferol (vitamin D3) 25 mcg (1,000 unit) tablet 1 tab PO DAILY gabapentin 400 mg capsule 1 cap PO TID lithium carbonate 600 mg capsule 1 cap PO BID nicotine 21 mg/24 hr Patch 24 Hour 21 mg transdermal DAILY Qty: 30 0RF
--- NOTE | 2022-07-28 06:31 | PC.NURSE ---
Patient slept through the night, no distress observed/reported, behavior non concerning, BHN referral completed/confirmed/pending ETA, care team made aware, VSS, med rec completed/pending provider's approval, Patient is positive for UTI, provider initiated Ceftin 500 mg BID, will continue to monitor.
--- NOTE | 2022-07-28 06:59 | PC.NURSE ---
patient appears to remain asleep at present respirations are even and unlabored patient appears in no distress
[2022-07-28] MEDS: Ferrous Sulfate 324 MG TABLET.DR PO (10:08)
[2022-07-28] MEDS: Omeprazole 20 MG CAPSULE.DR PO (10:09)
[2022-07-28] MEDS: Nicotine 21 MG PATCH.TD24 TRANSDERMA (10:09)
[2022-07-28] MEDS: OXcarbazepine 150 MG TABLET PO (10:09)
[2022-07-28] MEDS: Gabapentin 400 MG CAPSULE PO (10:09)
[2022-07-28] MEDS: Benztropine Mesylate 1 MG TABLET PO (10:09)
[2022-07-28] MEDS: Cholecalciferol (Vitamin D3) 25 MCG TABLET PO (10:09)
[2022-07-28] MEDS: Lithium Carbonate 300 MG CAPSULE 600 MG PO (10:09)
[2022-07-28] MEDS: valACYclovir HCL 1,000 MG TABLET 1000 MG PO (10:09)
[2022-07-28] MEDS: Sertraline HCL 50 MG TABLET PO (10:11)
[2022-07-28 10:35] VITALS: BP 136/82; PULSE 79; RESP 16; TEMP 37.1; O2SAT 94
== END 2022-07-28 11:46 | disposition home or self-care (01) ==
PROVIDERS: Emergency Provider Internal Medicine
DX: F31.9 Bipolar disorder, unspecified (principal); R45.851 Suicidal ideations; N39.0 Urinary tract infection, site not specified; Z20.822 Contact with and (suspected) exposure to COVID-19; F14.10 Cocaine abuse, uncomplicated; F41.0 Panic disorder [episodic paroxysmal anxiety]; F60.3 Borderline personality disorder; F43.10 Post-traumatic stress disorder, unspecified; F17.210 Nicotine dependence, cigarettes, uncomplicated; Z79.899 Other long term (current) drug therapy
CPT/HCPCS: 80307; 81001; 87635; 99284

== ENCOUNTER 2022-08-03 06:25 | Emergency (ER) | payer MEDICAID, SELFPAY ==
[2022-08-03 06:45] VITALS: BP 136/84; PULSE 94; RESP 16; TEMP 36.3; O2SAT 93; BMI 39.1
--- NOTE | 2022-08-03 06:45 | ED_ITS ---
HPI - Psych General Stated Complaint: crisis Time Seen by Provider: 08/03/22 06:44 Source: patient and old records reviewed Mode of arrival: EMS Limitations: other (under the influence of heroin and crack) History of Present Illness MD complaint: suicidal ideation, feels depressed and substance abuse Onset (ago): week(s) Duration: intermittent History of same: Yes Relieving factors: none Exacerbating factors: drug use Context: recent drug abuse and not taking psychiatric medications Associated psychiatric symptoms: depression and suicidal ideation Associated symptoms: denies other symptoms Treatments prior to arrival: none If self harm: admits thoughts of self harm and has plan Related Data Home Medications Medication Instructions Recorded Confirmed capsaicin 0.025 % topical cream 1 appl topical QID PRN pain 07/02/22 07/28/22 benztropine 1 mg tablet 1 tab PO BID 07/23/22 07/28/22 cholecalciferol (vitamin D3) 25 1 tab PO DAILY 07/23/22 07/28/22 mcg (1,000 unit) tablet gabapentin 400 mg capsule 1 cap PO TID 07/23/22 07/28/22 omeprazole 20 mg capsule,delayed 1 cap PO QAM 07/23/22 07/28/22 release oxcarbazepine 150 mg tablet 1 tab PO BID 07/23/22 07/28/22 sertraline 50 mg tablet 1 tab PO DAILY 07/23/22 07/28/22 tiotropium bromide 18 mcg capsule 1 cap inhalation DAILY 07/23/22 07/28/22 with inhalation device (Spiriva with HandiHaler) trazodone 100 mg tablet 2 tab PO BEDTIME 07/23/22 07/28/22 valacyclovir 1 gram tablet 1 tab PO BID 07/23/22 07/28/22 lithium carbonate 600 mg capsule 1 cap PO BID 07/24/22 07/28/22 Previous Rx's Medication Instructions Recorded albuterol sulfate 90 mcg/actuation 2 puff inhalation Q4-6H PRN 04/20/22 aerosol inhaler shortness of breath or wheezing 30 days #1 inhaler ferrous sulfate 324 mg (65 mg 324 mg PO DAILY 30 days #30 tabs 05/18/22 iron) tablet,delayed release nicotine 21 mg/24 hr daily 21 mg transdermal DAILY #30 ea 06/07/22 transdermal patch cefuroxime axetil 250 mg tablet 250 mg PO BID 7 days #14 tabs 07/28/22 Allergies Allergy/AdvReac Type Severity Reaction Status Date / Time aspirin [Aspirin] Allergy Severe HIVES,THROAT Verified 06/13/22 19:33 SWELLS bee pollen [BEE STINGS] Allergy Severe ANAPHYLAXIS Verified 06/13/22 19:33 diphenhydramine Allergy Severe hives, Verified 06/13/22 19:33 [From BENADRYL ALLERGY] throat swells Penicillins [PCN] Allergy Severe HIVES Verified 06/13/22 19:33 THROAT SWELLS Sulfa (Sulfonamide Allergy Intermediate HIVES Verified 06/13/22 19:33 Antibiotics) [SULFA (SULFONAMIDE ANTIBIOTICS)] tramadol [TRAMADOL] Allergy Intermediate ITCHING Verified 06/13/22 19:33 latex [LATEX] Allergy Unknown UNKNOWN Verified 06/13/22 19:33 penicillin G Allergy Unknown Unknown Verified 06/13/22 19:33 levofloxacin [From Levaquin] Allergy Hives Verified 06/13/22 19:33 hydroxyzine AdvReac Severe restless Verified 06/13/22 19:33 legs seafood AdvReac Stomach Verified 03/17/22 12:07 Upset Review of Systems Review of Systems: Constitutional : No Fever, No Chills ENT/Mouth : No Ear Pain, No Nasal Congestion, No sore throat Eyes: No Eye Pain, No Swelling, No Redness Cardiovascular : No Chest Pain, No SOB Respiratory : No Cough, No Sputum, No Dyspnea Gastrointestinal : No Nausea, No Vomiting, No Diarrhea, No Hematochezia, No Melena Genitourinary : No Dysuria, No Urinary Frequency, No Hematuria Musculoskeletal : No Myalgias Skin : No Skin Lesions, No rash Neuro : No Weakness, No Numbness, No Paresthesias, No Dizziness, No Headache Psych : positive Anxiety, positive Depression, positive SI no HI Heme/Lymph: No Lymphadenopathy Endocrine : No Polyuria, No Polydipsia All other systems reviewed and are negative [facility] Past Medical History Attestation statement: The following information was validated with the patient. Medical History Asthma exacerbation in COPD Asthma-COPD overlap syndrome Bipolar disorder Bipolar I disorder Borderline personality disorder COPD (chronic obstructive pulmonary disease) Depression Drug abuse Herpes Intermittent explosive disorder Mass of parotid gland FABIOLA (obstructive sleep apnea) Post traumatic stress disorder (PTSD) Pseudoseizures Tobacco use Surgical History History of ankle surgery History of appendectomy History of back surgery Hx of cholecystectomy Family History Family History Mother COPD (chronic obstructive pulmonary disease) Social History Social History Household Members: None Household Members Other:: Retirement in [place] Housing: Homeless Housing Other:: Sleeps on the couch at [facility] house Do you presently have visiting nurse or other home services: No Unable to assess alcohol history related to: Unknown Alcohol intake: unknown Patient Tobacco Use Status: Current everyday Tobacco user Tobacco use type: Cigarette Cigarette Packs Per Day: 3 Cigarettes Per Day: 2 Years Smoked: 34 e-Cigarette/Vaping Use: Former Use Second Hand Smoke Exposure: Yes Substance Use Type: Crack/Cocaine Advance Directives Date on File: 06/17/22 service: No Current occupational status: unemployed and disabled Sexual orientation: Straight/Heterosexual Physical Exam Vital Signs: Appearance: appears under the influence. dazed off Oriented X3. No acute distress. Eyes: Pupils equal, round and reactive to light. ENT: Pharynx normal. atraumatic Neck: Normal inspection. Neck supple. CVS: Normal heart rate and rhythm. Pulses normal. Respiratory: No respiratory distress. Breath sounds normal. Abdomen: Soft and nontender. Skin: Skin warm and dry. Normal skin color. Normal skin turgor. Extremities: No lower extremity edema. Neuro: Oriented X 3 but slow to respond No motor deficit. No sensory deficit. Course Course Course Narrative: Physician observation started at 659am Patient placed in physician observation because the patient needed more time for clinical sobriety and time for [facility] to assess the need for psych admission. At the time observation was started the patient's vitals were stable, patient is under the influence, Neuro: nonfocal, CV RRR, Lungs clear MDM - Psych MDM Narrative Medical decision making narrative: 52 yo female well known to us with multiple medical issues and hx of substance abuse - here with c/o using heroin and crack now with SI - will obtain labs and refer to N. Discharge Plan Discharge Clinical Impression: Cocaine use disorder Patient Disposition: Still a Patient Prescriptions: No Action albuterol sulfate 90 mcg/actuation HFA aerosol inhaler 2 puff inhalation Q4-6H PRN (Reason: shortness of breath or wheezing) 30 Days Qty: 1 0RF ferrous sulfate 324 mg (65 mg iron) tablet,delayed release (DR/EC) 324 mg PO DAILY 30 Days Qty: 30 0RF capsaicin 0.025 % cream 1 appl topical QID PRN (Reason: pain) oxcarbazepine 150 mg tablet 1 tab PO BID valacyclovir 1 gram tablet 1 tab PO BID trazodone 100 mg tablet 2 tab PO BEDTIME benztropine 1 mg tablet 1 tab PO BID omeprazole 20 mg capsule,delayed release(DR/EC) 1 cap PO QAM sertraline 50 mg tablet 1 tab PO DAILY Spiriva with HandiHaler 18 mcg capsule, w/inhalation device 1 cap inhalation DAILY cholecalciferol (vitamin D3) 25 mcg (1,000 unit) tablet 1 tab PO DAILY gabapentin 400 mg capsule 1 cap PO TID lithium carbonate 600 mg capsule 1 cap PO BID nicotine 21 mg/24 hr Patch 24 Hour 21 mg transdermal DAILY Qty: 30 0RF cefuroxime axetil 250 mg tablet 250 mg PO BID 7 Days Qty: 14 0RF
--- NOTE | 2022-08-03 07:19 | PC.NURSE ---
patient appears to remain asleep at present respirations are evn and unlabored patient appears in no distress
[2022-08-03 07:24] LABS: COVID-19 Test Negative (Negative); IDNOW Serial# 9DB6401D
[2022-08-03 07:42] LABS: Amphetamine Screen Urine Not Detected (Not Detect); Barbiturates, Urine Not Detected (Not Detect); Benzodiazepines Screen Urine Not Detected (Not Detect); Cannabinoid Screen Urine Not Detected (Not Detect); Cocaine Screen Urine POSITIVE (Not Detect); Fentanyl, urine Not Detected (Not Detect); Opiate Screen Urine Not Detected (Not Detect); Phencyclidine Screen Urine Not Detected (Not Detect)
[2022-08-03 09:46] LABS: MANUAL DIFF FLAG NO
[2022-08-03 09:52] LABS: Basophils Absolute Auto 0.1 X10*3/uL (0.0-0.2); Basophils Percent Auto 0.9 % (0-2); Eosinophils Absolute Auto 0.1 X10*3/uL (0.0-0.4); Eosinophils Percent Auto 1.2 % (0-4); Hematocrit 41.8 % (37.0-47.0); Hemoglobin 13.7 g/dl (12.0-16.0); Imm Gran Abs Auto 0.03 X10*3/uL (0.00-0.03); Imm Gran Pct Auto 0.4 % (0.0-0.4); Lymphocytes Absolute Auto 2.1 X10*3/uL (1.2-4.9); Lymphocytes Percent Auto 30.6 % (20-40); Mean Corpuscular HGB Conc 32.8 g/dl (31.0-35.0); Mean Corpuscular Hemoglobin 29.7 pg (27.0-33.0); Mean Corpuscular Volume 90.5 fL (80.0-98.0); Mean Platelet Volume 9.8 fL (9.4-12.3); Monocytes Absolute Auto 0.5 X10*3/uL (0.1-1.2); Monocytes Percent Auto 7.6 % (2-11); Neutrophils Absolute Auto 4.1 x10*3/uL (2.0-8.3); Neutrophils Percent Auto 59.3 % (45-73); Platelet Count 266 X10*3/uL (160-400); Red Blood Count 4.62 X10*6/uL (4.20-5.50); Red Cell Distribution Width 13.3 % (11.0-16.0); White Blood Count 6.9 X10*3/uL (4.8-10.8)
[2022-08-03] MEDS: Benztropine Mesylate 1 MG TABLET PO (21:03)
[2022-08-03] MEDS: OXcarbazepine 150 MG TABLET PO (21:03)
[2022-08-03] MEDS: Gabapentin 400 MG CAPSULE PO (21:03)
[2022-08-03] MEDS: traZODone HCL 100 MG TABLET 200 MG PO (21:03)
[2022-08-03] MEDS: valACYclovir HCL 1,000 MG TABLET 1000 MG PO (21:03)
[2022-08-03] MEDS: Lithium Carbonate 300 MG CAPSULE 600 MG PO (21:04)
[2022-08-03] MEDS: Acetaminophen 325 MG TABLET 975 MG PO (21:12)
--- NOTE | 2022-08-03 21:18 | PC.NURSE ---
Patient was able to wake up for her medication, C/O headache, all medication and Tylenol given. will continue to monitor.
[2022-08-03 21:49] VITALS: BP 139/79; PULSE 80; RESP 20; TEMP 36.6; O2SAT 94
--- NOTE | 2022-08-04 06:12 | PC.NURSE ---
Patient sleeping comfortably, no distress.Will continue to monitor.
[2022-08-04] MEDS: Omeprazole 20 MG CAPSULE.DR PO (06:15)
[2022-08-04 06:23] VITALS: BP 110/51; PULSE 66; RESP 19; TEMP 36.5; O2SAT 93
--- NOTE | 2022-08-04 06:30 | MHC.CARE ---
Smart sheet submitted
[2022-08-04] MEDS: Ferrous Sulfate 324 MG TABLET.DR PO (10:06)
[2022-08-04] MEDS: Lithium Carbonate 300 MG CAPSULE 600 MG PO ×2 (10:06→20:29)
[2022-08-04] MEDS: Cholecalciferol (Vitamin D3) 25 MCG TABLET PO (10:06)
[2022-08-04] MEDS: Gabapentin 400 MG CAPSULE PO ×3 (10:06→20:30)
[2022-08-04] MEDS: Benztropine Mesylate 1 MG TABLET PO ×2 (10:06→20:28)
[2022-08-04] MEDS: Nicotine 21 MG PATCH.TD24 TRANSDERMA (10:06)
[2022-08-04] MEDS: Sertraline HCL 50 MG TABLET PO (10:06)
[2022-08-04] MEDS: OXcarbazepine 150 MG TABLET PO ×2 (10:09→20:33)
[2022-08-04] MEDS: valACYclovir HCL 1,000 MG TABLET 1000 MG PO ×2 (10:09→20:33)
[2022-08-04 10:57] VITALS: BP 122/82; PULSE 81; RESP 17; TEMP 36.3; O2SAT 94
--- NOTE | 2022-08-04 12:20 | MHC.CARE ---
CARE Team receives a call from Irma Samuel, pt?s DM worker.? He advises CARE Team that pt?s DM case has been reopened and he is awaiting her being assigned to him on his case load.? He reports that, at this time, he has no housing available to her but she is on a list for ACCS services and is on a priority list for an intensive medical care home in [facility] that will attend to both her medical and mental health needs. Mr. Samuel stated that pt can reach out to him after her surgery.
--- NOTE | 2022-08-04 13:36 | MHC.RECOVRN ---
T/W met w/ pt, pt alert, oriented, eating lunch. Pt interested in Detox. Pt reports reoccurrence, smoking $200 daily of Crack/ALEA past three days. Pt reports sniffed one bag of heroin, three days ago. Pt states is having surgery in [place] 08/08/22. Pt requesting referral to [facility] for detox. T/W will start referral process. Care Team aware.
--- NOTE | 2022-08-04 13:54 | MHC.CARE ---
CARE Team speaks with Roman Delatorre from [facility]. Mr. Lawrences stated that he will try to stop by and see pt tomorrow to discuss the potential for housing.
[2022-08-04] MEDS: Diphenoxylate/Atrop 2.5/0.025 TABLET 2 TAB PO (15:52)
[2022-08-04 17:59] VITALS: BP 153/82; PULSE 85; RESP 15; TEMP 36.4; O2SAT 93
[2022-08-04] MEDS: Acetaminophen 325 MG TABLET 650 MG PO (20:28)
[2022-08-04] MEDS: traZODone HCL 100 MG TABLET 200 MG PO (20:28)
[2022-08-05 02:59] VITALS: BP 125/70; PULSE 77; RESP 18; TEMP 36.8; O2SAT 94
--- NOTE | 2022-08-05 06:31 | PC.NURSE ---
Patient slept through the night, no distress observed/reported, medication compliant, recovery team coordinating detox bed search at [facility], care team is coordinating housing with [facility], behavior appropriate, VSS, will continue to monitor.
[2022-08-05] MEDS: Omeprazole 20 MG CAPSULE.DR PO ×2 (06:38→08:22)
[2022-08-05 08:13] VITALS: BP 135/89; PULSE 85; RESP 13; TEMP 36.3; O2SAT 94
[2022-08-05] MEDS: Benztropine Mesylate 1 MG TABLET PO (08:22)
[2022-08-05] MEDS: Lithium Carbonate 300 MG CAPSULE 600 MG PO (08:22)
[2022-08-05] MEDS: OXcarbazepine 150 MG TABLET PO (08:22)
[2022-08-05] MEDS: Gabapentin 400 MG CAPSULE PO (08:22)
[2022-08-05] MEDS: Ferrous Sulfate 324 MG TABLET.DR PO (08:22)
[2022-08-05] MEDS: Sertraline HCL 50 MG TABLET PO (08:22)
[2022-08-05] MEDS: valACYclovir HCL 1,000 MG TABLET 1000 MG PO (08:23)
[2022-08-05] MEDS: Nicotine 21 MG PATCH.TD24 TRANSDERMA (08:23)
[2022-08-05] MEDS: Cholecalciferol (Vitamin D3) 25 MCG TABLET PO (08:23)
--- NOTE | 2022-08-05 11:25 | PC.NURSE ---
CALM COOPERATIVE WAITING ON DETOX BED
--- NOTE | 2022-08-05 15:14 | MHC.CARE ---
Pt is requesting to be discharged from the ED. Pt was assessed by CARE Team 08/04 - found not meet criteria for IPLOC.
== END 2022-08-05 15:12 | disposition home or self-care (01) ==
PROVIDERS: Emergency Medicine; Emergency Provider Emergency Medicine Emergency Medical Services
DX: F33.1 Major depressive disorder, recurrent, moderate (principal); R45.851 Suicidal ideations; F14.19 Cocaine abuse with unspecified cocaine-induced disorder; F17.210 Nicotine dependence, cigarettes, uncomplicated; Z20.822 Contact with and (suspected) exposure to COVID-19; Z71.6 Tobacco abuse counseling; Z79.899 Other long term (current) drug therapy
CPT/HCPCS: 36415; 80307; 85025; 87635; 99285

== ENCOUNTER 2022-08-06 04:55 | Emergency (ER) | payer MEDICAID, SELFPAY ==
[2022-08-06 05:01] VITALS: BP 118/72; PULSE 82; RESP 17; TEMP 36.6; O2SAT 94; BMI 40.7
--- NOTE | 2022-08-06 05:20 | PC.NURSE ---
Patient just arrived/compliant with gear changer process, patient calm and quiet, no distress observed/reported, [facility]N referral completed/confirmed/pending ETA, Med rec completed/pending provider's approval, will continue to monitor.
[2022-08-06 05:31] LABS: Appearance Urine Turbid; Color Urine Yellow; Glucose Urine UA Negative (Negative); Leukocyte Esterase Urine Moderate (2+) (Negative); Nitrite Urine Negative (Negative); PH 5.5 (5.0-9.0); Specific Gravity - Urine 1.025 (1.005-1.025); UMIC TRIGGER UA YES; Urine Blood Negative (Negative); Urine Ketones Negative (Negative); Urine Protein Trace mg/dL (Neg-Trace)
[2022-08-06 05:42] LABS: Bacteria Urine 4+ (None Seen); Hyaline Casts Urine 0-2 /LPF (0-2); RBC Urine 0-2 /HPF (0-2); Squamous Epithelial Cell Urine >20 /HPF (0-2); WBC Urine >50 /HPF (0-5)
[2022-08-06 05:45] LABS: Amphetamine Screen Urine Not Detected (Not Detect); Barbiturates, Urine Not Detected (Not Detect); Benzodiazepines Screen Urine Not Detected (Not Detect); COVID-19 Test Negative (Negative); Cannabinoid Screen Urine Not Detected (Not Detect); Cocaine Screen Urine POSITIVE (Not Detect); Fentanyl, urine Not Detected (Not Detect); Opiate Screen Urine Not Detected (Not Detect); Phencyclidine Screen Urine Not Detected (Not Detect)
--- NOTE | 2022-08-06 06:52 | ED_ITS ---
HPI - Psych General Chief Complaint: Psychiatric Symptoms Stated Complaint: si Time Seen by Provider: 08/06/22 06:47 Source: patient Mode of arrival: EMS Limitations: no limitations History of Present Illness HPI Narrative: 52-year-old female who presents emergency department for evaluation of suicidal ideation with a plan to jump off a bridge. The patient was here in the emergency department from 08/03/2022 until 08/06/2022 with a similar complaint. At that time the plan had been to get the patient into a voluntary treatment program such is [facility] however yesterday, the patient decided she did not want a wait any longer and left the emergency department. She states that since leaving the department she became suicidal and returned for re-evaluation. Patient states that she is depressed and wants to get help. MD complaint: suicidal ideation and feels depressed Onset (ago): hour(s) Duration: constant History of same: Yes Relieving factors: none Exacerbating factors: none Associated psychiatric symptoms: none Associated symptoms: denies other symptoms Treatments prior to arrival: none If self harm: admits thoughts of self harm Details of plan: Wants to jump off a bridge Related Data Home Medications Medication Instructions Recorded Confirmed capsaicin 0.025 % topical cream 1 appl topical QID PRN pain 07/02/22 08/06/22 benztropine 1 mg tablet 1 tab PO BID 07/23/22 08/06/22 cholecalciferol (vitamin D3) 25 1 tab PO DAILY 07/23/22 08/06/22 mcg (1,000 unit) tablet gabapentin 400 mg capsule 1 cap PO TID 07/23/22 08/06/22 omeprazole 20 mg capsule,delayed 1 cap PO QAM 07/23/22 08/06/22 release oxcarbazepine 150 mg tablet 1 tab PO BID 07/23/22 08/06/22 sertraline 50 mg tablet 1 tab PO DAILY 07/23/22 08/06/22 tiotropium bromide 18 mcg capsule 1 cap inhalation DAILY 07/23/22 08/06/22 with inhalation device (Spiriva with HandiHaler) trazodone 100 mg tablet 2 tab PO BEDTIME 07/23/22 08/06/22 valacyclovir 1 gram tablet 1 tab PO BID 07/23/22 08/06/22 lithium carbonate 600 mg capsule 1 cap PO BID 07/24/22 08/06/22 cyanocobalamin (vitamin B-12) 100 1 tab PO DAILY 08/06/22 08/06/22 mcg tablet nitroglycerin 0.4 mg sublingual 0.4 mg sublingual Q5M PRN Chest 08/06/22 08/06/22 tablet Pain olanzapine 10 mg tablet 1 tab PO BEDTIME 08/06/22 08/06/22 Previous Rx's Medication Instructions Recorded albuterol sulfate 90 mcg/actuation 2 puff inhalation Q4-6H PRN 04/20/22 aerosol inhaler shortness of breath or wheezing 30 days #1 inhaler ferrous sulfate 324 mg (65 mg 324 mg PO DAILY 30 days #30 tabs 05/18/22 iron) tablet,delayed release nicotine 21 mg/24 hr daily 21 mg transdermal DAILY #30 ea 06/07/22 transdermal patch cefuroxime axetil 250 mg tablet 250 mg PO BID 7 days #14 tabs 07/28/22 Allergies Allergy/AdvReac Type Severity Reaction Status Date / Time aspirin [Aspirin] Allergy Severe HIVES,THROAT Verified 06/13/22 19:33 SWELLS bee pollen [BEE STINGS] Allergy Severe ANAPHYLAXIS Verified 06/13/22 19:33 diphenhydramine Allergy Severe hives, Verified 06/13/22 19:33 [From BENADRYL ALLERGY] throat swells Penicillins [PCN] Allergy Severe HIVES Verified 06/13/22 19:33 THROAT SWELLS Sulfa (Sulfonamide Allergy Intermediate HIVES Verified 06/13/22 19:33 Antibiotics) [SULFA (SULFONAMIDE ANTIBIOTICS)] tramadol [TRAMADOL] Allergy Intermediate ITCHING Verified 06/13/22 19:33 latex [LATEX] Allergy Unknown UNKNOWN Verified 06/13/22 19:33 penicillin G Allergy Unknown Unknown Verified 06/13/22 19:33 levofloxacin [From Levaquin] Allergy Hives Verified 06/13/22 19:33 hydroxyzine AdvReac Severe restless Verified 06/13/22 19:33 legs seafood AdvReac Stomach Verified 03/17/22 12:07 Upset Review of Systems Review of Systems: Yes all other systems are reviewed and are negative PMFSH Past Medical History Medical History Asthma exacerbation in COPD Asthma-COPD overlap syndrome Bipolar disorder Bipolar I disorder Borderline personality disorder COPD (chronic obstructive pulmonary disease) Depression Drug abuse Herpes Intermittent explosive disorder Mass of parotid gland FABIOLA (obstructive sleep apnea) Post traumatic stress disorder (PTSD) Pseudoseizures Tobacco use Surgical History History of ankle surgery History of appendectomy History of back surgery Hx of cholecystectomy Family History Family History Mother COPD (chronic obstructive pulmonary disease) Social History Social History Household Members: None Household Members Other:: Assisted in [place] Housing: Homeless Housing Other:: Sleeps on the couch at [facility] house Do you presently have visiting nurse or other home services: No Unable to assess alcohol history related to: Unknown Alcohol intake: unknown Patient Tobacco Use Status: Current everyday Tobacco user Tobacco use type: Cigarette Cigarette Packs Per Day: 3 Cigarettes Per Day: 2 Years Smoked: 34 e-Cigarette/Vaping Use: Former Use Second Hand Smoke Exposure: Yes Substance Use Type: Crack/Cocaine Advance Directives: Yes Advance Directives on File: Yes Advance Directives Date on File: 06/17/22 service: No Current occupational status: unemployed and disabled Sexual orientation: Straight/Heterosexual Physical Exam Vital Signs: Vital Signs: Last Vital Signs Temp 98.3 F 08/06/22 10:22 Pulse 76 08/06/22 10:22 Resp 17 08/06/22 10:22 BP 126/70 08/06/22 10:22 Pulse Ox 96 08/06/22 10:22 O2 Del Method 08/06/22 10:22 BMI result Body Mass Index 40.7 Const: General: cooperative and no acute distress Orientation/consciousness: oriented to person and oriented to place Limitations: no limitations HEENT: Head: Yes normal to inspection, Yes normocephalic and Yes atraumatic Ears: external ears normal General nose exam: Normal external nose present Face and sinus: Yes normal facial exam Mouth: Normal oral and palatal mucosa present Throat: Yes posterior oropharynx normal Eyes: General: appearance normal, both eyes and all related structures Pupils: Equal, round and reactive pupils present Neck: Other: Left neck mass, chronic (complex cyst which is been evaluated the past) Neck: Yes no lymphadenopathy, Yes trachea midline and Yes supple Chest: Chest palpation & inspection: normal inspection of the chest and normal palpation of entire chest wall Resp: Effort & Inspection: normal respiratory effort and able to speak in complete sentences Auscultation: clear to auscultation bilaterally Cardio: Rate: regular rate Rhythm: regular rhythm Heart sounds: S1 normal heart sound present, S2 normal heart sound present and no murmurs GI: Inspection: Yes normal to inspection Palpation (GI): Soft to palpation, nontender and no guarding Auscultation: normal bowel sounds : General: Yes no CVA tenderness Back/Spine/Pelvis: Back: no CVA tenderness Skin: General skin exam: no rashes or lesions noted Neuro: General: oriented to person and oriented to place Cranial nerves: Yes CN's II-XII intact bilaterally and Yes Equal, round and reactive pupils present Cognition (Neuro): normal cognition Motor exam (neuro): 5/5 motor strength present throughout Extrem: General: Yes normal to inspection Psych: Appearance: grossly normal Speech and movement: Normal speech and movement present Affect: normal affect Attitude: cooperative Thought process: Normal thought process present Thought content: Suicidality present and no homicidality Course Course Course Narrative: 52-year-old female who is well-known to the emergency department who was in the emergency department psychiatric cause for 3 days waiting for voluntary placement, she left yesterday and now returns today with suicidal ideation with a plan to jump off a bridge. Patient's examination was unremarkable. Patient had a urinalysis which revealed 2+ leukocyte esterase. Microscopic rate greater than 50 WBCs but also greater than 20 squamous cells, 4+ bacteria. Yeast was also present in her urine. Patient has had similar urinalysis in the past with no positive urine cultures suggesting that today his urinalysis/microscopic evaluation is consistent with catch specimen therefore will not treat her with antibiotics. Urine tox screen was positive for cocaine, the patient has had similar positive urines for cocaine in the past. At this time I believe the patient is medically cleared to be evaluated by our crisis team. 0659: Start physician observation: The patient will be placed in physician observation until Behavioral Health can evaluate the patient and and appropriate disposition can be obtained. Patient's medications were reconciled and I did order these medications for the patient. 1147: The patient was seen by the care team the patient denies being suicidal or homicidal. The patient is requesting to go to the Living [facility] respite. The patient will be discharged and a viral be provided for her to the respite. MDM - Psych Lab Data Labs: Lab Results 08/06/22 08/06/22 08/06/22 Range/Units 05:22 05:22 05:22 Urine Color Yellow Urine Appearance Turbid Urine pH 5.5 (5.0-9.0) Ur Specific [place] 1.025 (1.005-1.025) Urine Protein Trace (Neg-Trace) mg/dL Urine Glucose (UA) Negative (Negative) mg/dL Urine Ketones Negative (Negative) mg/dL Urine Blood Negative (Negative) Urine Nitrite Negative (Negative) Ur Leukocyte Esterase Moderate (2+) H (Negative) Urine RBC 0-2 (0-2) /HPF Urine WBC >50 H (0-5) /HPF Ur Squamous Epith Cells >20 (0-2) /HPF Urine Bacteria 4+ (None Seen) Hyaline Casts 0-2 (0-2) /LPF Urine Yeast Present Urine Opiates Screen Not Detected (Not Detect) Urine Fentanyl Screen Not Detected (Not Detect) Ur Barbiturates Screen Not Detected (Not Detect) Ur Phencyclidine Scrn Not Detected (Not Detect) Ur Amphetamines Screen Not Detected (Not Detect) U Benzodiazepines Scrn Not Detected (Not Detect) Urine Cocaine Screen POSITIVE H (Not Detect) U Marijuana (THC) Screen Not Detected (Not Detect) COVID-19 (ENDY) Negative (Negative) COVID-19 Clin Com See Note Discharge Plan Discharge Clinical Impression: Depression with suicidal ideation Patient Disposition: Home, Self-Care Additional Instructions: Continue taking medications as prescribed by your providers. Follow-up with your doctor in 2 days. Please return to the emergency department if your symptoms get worse or if you develop any symptoms that are concerning to you. Prescriptions: No Action albuterol sulfate 90 mcg/actuation HFA aerosol inhaler 2 puff inhalation Q4-6H PRN (Reason: shortness of breath or wheezing) 30 Days Qty: 1 0RF ferrous sulfate 324 mg (65 mg iron) tablet,delayed release (DR/EC) 324 mg PO DAILY 30 Days Qty: 30 0RF capsaicin 0.025 % cream 1 appl topical QID PRN (Reason: pain) oxcarbazepine 150 mg tablet 1 tab PO BID valacyclovir 1 gram tablet 1 tab PO BID trazodone 100 mg tablet 2 tab PO BEDTIME benztropine 1 mg tablet 1 tab PO BID omeprazole 20 mg capsule,delayed release(DR/EC) 1 cap PO QAM sertraline 50 mg tablet 1 tab PO DAILY Spiriva with HandiHaler 18 mcg capsule, w/inhalation device 1 cap inhalation DAILY cholecalciferol (vitamin D3) 25 mcg (1,000 unit) tablet 1 tab PO DAILY gabapentin 400 mg capsule 1 cap PO TID lithium carbonate 600 mg capsule 1 cap PO BID nitroglycerin 0.4 mg tablet, sublingual 0.4 mg sublingual Q5M PRN (Reason: Chest Pain) cyanocobalamin (vitamin B-12) 100 mcg tablet 1 tab PO DAILY olanzapine 10 mg tablet 1 tab PO BEDTIME nicotine 21 mg/24 hr Patch 24 Hour 21 mg transdermal DAILY Qty: 30 0RF cefuroxime axetil 250 mg tablet 250 mg PO BID 7 Days Qty: 14 0RF
--- NOTE | 2022-08-06 07:32 | PC.NURSE ---
Report recieved. Pt currently sleeping, respirations even and unlabored, in no apprent distress. Pt waiting to be seen by Crisis.
--- NOTE | 2022-08-06 07:58 | PHA.MEDREC ---
Pharmacy Consult ? Medication Reconciliation Rn has completed the medication reconciliation, pharmacy reviewed.
[2022-08-06 10:22] VITALS: BP 126/70; PULSE 76; RESP 17; TEMP 36.8; O2SAT 96
[2022-08-06] MEDS: Nicotine 21 MG PATCH.TD24 TRANSDERMA (10:33)
[2022-08-06] MEDS: Lithium Carbonate 300 MG CAPSULE 600 MG PO (10:36)
[2022-08-06] MEDS: Ferrous Sulfate 324 MG TABLET.DR PO (10:36)
[2022-08-06] MEDS: Omeprazole 20 MG CAPSULE.DR PO (10:36)
[2022-08-06] MEDS: Sertraline HCL 50 MG TABLET PO (10:36)
[2022-08-06] MEDS: Cholecalciferol (Vitamin D3) 25 MCG TABLET PO (10:36)
[2022-08-06] MEDS: Gabapentin 400 MG CAPSULE PO (10:36)
[2022-08-06] MEDS: OXcarbazepine 150 MG TABLET PO (10:36)
[2022-08-06] MEDS: Benztropine Mesylate 1 MG TABLET PO (10:36)
[2022-08-06] MEDS: valACYclovir HCL 1,000 MG TABLET 1000 MG PO (10:36)
--- NOTE | 2022-08-06 11:48 | MHC.CARE ---
Care Team met with pt and she reported not feeling depressed and denied SI/HI/AVH. Pt reported she wants to go to [facility] Living [facility].
== END 2022-08-06 11:56 | disposition home or self-care (01) ==
PROVIDERS: Emergency Provider Emergency Medicine Emergency Medical Services
DX: F33.1 Major depressive disorder, recurrent, moderate (principal); R45.851 Suicidal ideations; F17.210 Nicotine dependence, cigarettes, uncomplicated; F14.90 Cocaine use, unspecified, uncomplicated; Z20.822 Contact with and (suspected) exposure to COVID-19; Z71.6 Tobacco abuse counseling; Z79.899 Other long term (current) drug therapy
CPT/HCPCS: 80307; 81001; 87635; 99284

== ENCOUNTER 2022-08-19 20:01 | Emergency (ER) | payer MEDICAID, SELFPAY ==
[2022-08-19 20:10] VITALS: BP 140/86; PULSE 90; RESP 17; TEMP 37.4; O2SAT 93; BMI 40.7
--- NOTE | 2022-08-19 20:19 | ED.PSYCH ---
HPI - Psych General Chief Complaint: Psychiatric Symptoms Stated Complaint: crisis Time Seen by Provider: 08/19/22 20:05 Source: patient and EMS Mode of arrival: EMS Limitations: no limitations History of Present Illness HPI Narrative: Is a 52-year-old female with history of borderline personality disorder and bipolar disorder who presents with reports of suicidal thoughts with plan to jump off a bridge. No hallucination. No homicidal ideation. Patient denies current substance use. Patient states to many good things are happening to me, this isnt normal. -cites her sobriety, recently finding out her biopsies of left parotid gland were negative for malignancy Related Data Home Medications Medication Instructions Recorded Confirmed capsaicin 0.025 % topical cream 1 appl topical QID PRN pain 07/02/22 08/19/22 benztropine 1 mg tablet 1 tab PO BID 07/23/22 08/19/22 cholecalciferol (vitamin D3) 25 1 tab PO DAILY 07/23/22 08/19/22 mcg (1,000 unit) tablet gabapentin 400 mg capsule 1 cap PO TID 07/23/22 08/19/22 omeprazole 20 mg capsule,delayed 1 cap PO QAM 07/23/22 08/19/22 release oxcarbazepine 150 mg tablet 1 tab PO BID 07/23/22 08/19/22 sertraline 50 mg tablet 1 tab PO DAILY 07/23/22 08/19/22 tiotropium bromide 18 mcg capsule 1 cap inhalation DAILY 07/23/22 08/19/22 with inhalation device (Spiriva with HandiHaler) trazodone 100 mg tablet 2 tab PO BEDTIME 07/23/22 08/19/22 valacyclovir 1 gram tablet 1 tab PO BID 07/23/22 08/19/22 lithium carbonate 600 mg capsule 1 cap PO BID 07/24/22 08/19/22 cyanocobalamin (vitamin B-12) 100 1 tab PO DAILY 08/06/22 08/19/22 mcg tablet nitroglycerin 0.4 mg sublingual 0.4 mg sublingual Q5M PRN Chest 08/06/22 08/19/22 tablet Pain olanzapine 10 mg tablet 1 tab PO BEDTIME 08/06/22 08/19/22 Previous Rx's Medication Instructions Recorded albuterol sulfate 90 mcg/actuation 2 puff inhalation Q4-6H PRN 04/20/22 aerosol inhaler shortness of breath or wheezing 30 days #1 inhaler ferrous sulfate 324 mg (65 mg 324 mg PO DAILY 30 days #30 tabs 05/18/22 iron) tablet,delayed release nicotine 21 mg/24 hr daily 21 mg transdermal DAILY #30 ea 06/07/22 transdermal patch cefuroxime axetil 250 mg tablet 250 mg PO BID 7 days #14 tabs 07/28/22 Allergies Allergy/AdvReac Type Severity Reaction Status Date / Time aspirin [Aspirin] Allergy Severe HIVES,THROAT Verified 06/13/22 19:33 SWELLS bee pollen [BEE STINGS] Allergy Severe ANAPHYLAXIS Verified 06/13/22 19:33 diphenhydramine Allergy Severe hives, Verified 06/13/22 19:33 [From BENADRYL ALLERGY] throat swells Penicillins [PCN] Allergy Severe HIVES Verified 06/13/22 19:33 THROAT SWELLS Sulfa (Sulfonamide Allergy Intermediate HIVES Verified 06/13/22 19:33 Antibiotics) [SULFA (SULFONAMIDE ANTIBIOTICS)] tramadol [TRAMADOL] Allergy Intermediate ITCHING Verified 06/13/22 19:33 latex [LATEX] Allergy Unknown UNKNOWN Verified 06/13/22 19:33 penicillin G Allergy Unknown Unknown Verified 06/13/22 19:33 levofloxacin [From Levaquin] Allergy Hives Verified 06/13/22 19:33 hydroxyzine AdvReac Severe restless Verified 06/13/22 19:33 legs seafood AdvReac Stomach Verified 03/17/22 12:07 Upset Review of Systems Review of Systems: Yes all other systems are reviewed and are negative Constitutional: Constitutional: Reports no additional constitutional complaints, Denies body ache(s), Denies chills, Denies fever(s), Denies headache(s) and Denies weakness Eyes: Eyes: Reports no additional eye complaints and Denies change in vision ENT: Reports system reviewed and no additional complaints, except as documented, Denies dizziness, Denies headache(s), Denies nasal congestion, Denies nasal discharge and Denies neck pain Cardiovascular: Cardiovascular: Reports no additional cardiovascular complaints, Denies chest pain, Denies leg edema and Denies dyspnea Respiratory: Respiratory: Reports no additional respiratory complaints, Denies cough and Denies dyspnea Gastrointestinal: Gastrointestinal: Reports no additional gastrointestinal complaints, Denies abdominal pain, Denies diarrhea, Denies nausea and Denies vomiting Genitourinary: Genitourinary: Reports no additional female genitourinary complaints and Denies urinary incontinence Musculoskeletal: Musculoskeletal: Reports no additional musculoskeletal complaints, Denies back pain, Denies arthralgias, Denies joint swelling, Denies neck pain, Denies numbness and Denies tingling Integumentary/Breasts: Skin/Breast: Reports system reviewed and no additional complaints, except as docu and Denies rash Neurologic: Reports system reviewed and no additional complaints, except as documented, Denies Abnormal speech present, Denies dizziness, Denies headache(s), Denies numbness, Denies tingling and Denies weakness Psychiatric: Psychiatric: Denies visual hallucinations, Denies hallucinations, Denies homicidal ideation and Reports suicidal ideation [facility] Past Medical History Attestation statement: The following information was validated with the patient. Source: old records reviewed and nursing notes reviewed Medical History Asthma exacerbation in COPD Asthma-COPD overlap syndrome Bipolar disorder Bipolar I disorder Borderline personality disorder COPD (chronic obstructive pulmonary disease) Depression Drug abuse Herpes Intermittent explosive disorder Mass of parotid gland FABIOLA (obstructive sleep apnea) Post traumatic stress disorder (PTSD) Pseudoseizures Tobacco use Surgical History History of ankle surgery History of appendectomy History of back surgery Hx of cholecystectomy Family History Family History Mother COPD (chronic obstructive pulmonary disease) Social History Social History Household Members: None Household Members Other:: Prison in [place] Housing: Homeless Housing Other:: Sleeps on the couch at [facility] house Do you presently have visiting nurse or other home services: No Unable to assess alcohol history related to: Unknown Alcohol intake: unknown Patient Tobacco Use Status: Current everyday Tobacco user Tobacco use type: Cigarette Cigarette Packs Per Day: 3 Cigarettes Per Day: 2 Years Smoked: 34 e-Cigarette/Vaping Use: Former Use Second Hand Smoke Exposure: Yes Substance Use Type: Crack/Cocaine Advance Directives: Yes Advance Directives on File: Yes Advance Directives Date on File: 06/17/22 service: No Current occupational status: unemployed and disabled Sexual orientation: Straight/Heterosexual Physical Exam Vital Signs: Vital Signs: Last Vital Signs Temp 99.3 F 08/19/22 20:10 Pulse 90 08/19/22 20:10 Resp 17 08/19/22 20:10 BP 140/86 H 08/19/22 20:10 Pulse Ox 93 08/19/22 20:10 O2 Del Method 08/19/22 20:10 BMI result Body Mass Index 40.7 Const: General: cooperative, healthy appearing, comfortable and no acute distress Orientation/consciousness: patient oriented x3 Limitations: no limitations HEENT: Other: Healing incision site noted to the left neck Head: Yes normal to inspection Ears: hearing grossly normal bilaterally General nose exam: Normal external nose present Face and sinus: Yes normal facial exam Mouth: Normal oral and palatal mucosa present Throat: Yes posterior oropharynx normal Eyes: General: appearance normal, both eyes and all related structures Pupils: Equal, round and reactive pupils present Neck: Neck: Yes normal visual inspection Chest: Chest palpation & inspection: normal inspection of the chest Resp: Effort & Inspection: normal respiratory effort Auscultation: clear to auscultation bilaterally Cardio: Rate: regular rate Rhythm: regular rhythm Peripheral pulses: Peripheral pulses 2+ throughout GI: Inspection: Yes normal to inspection Palpation (GI): Soft to palpation and nontender Auscultation: normal bowel sounds Back/Spine/Pelvis: Thoracic/Lumbar Spine: thoracic and lumbar spine normal to inspection Skin: General skin exam: no rashes or lesions noted Neuro: General: patient oriented x3, no focal motor deficits and normal sensation to monofilament Cranial nerves: Yes CN's II-XII intact bilaterally and Yes Equal, round and reactive pupils present Cognition (Neuro): normal cognition Speech: No Abnormal speech present Gait exam (Neuro): Normal gait present Motor exam (neuro): 5/5 motor strength present throughout Extrem: General: Yes normal to inspection Course Course Course Narrative: Reviewed labs. Patient placed in physician observation pending disposition MDM - Psych MDM Narrative Medical decision making narrative: 52-year-old female here with suicidal thoughts. No concern for acute ingestion or trauma. Will need labs, COVID screen, drug screen and crisis evaluation Medical Records Attestation: I reviewed the patient's medical records. Lab Data Attestation: I reviewed the patient's lab results. Result diagrams: 08/19/22 22:37 08/19/22 22:37 Labs: Lab Results 08/19/22 08/19/22 08/19/22 Range/Units 20:39 20:39 20:39 WBC (4.8-10.8) X10*3/uL RBC (4.20-5.50) X10*6/uL Hgb (12.0-16.0) g/dl Hct (37.0-47.0) % MCV (80.0-98.0) fL MCH (27.0-33.0) pg MCHC (31.0-35.0) g/dl RDW (11.0-16.0) % Plt Count (160-400) X10*3/uL MPV (9.4-12.3) fL Immature Gran % (Auto) (0.0-0.4) % Neut % (Auto) (45-73) % Lymph % (Auto) (20-40) % [place] % (Auto) (2-11) % Eos % (Auto) (0-4) % Baso % (Auto) (0-2) % Lymph # (Auto) (1.2-4.9) X10*3/uL [place] # (Auto) (0.1-1.2) X10*3/uL Eos # (Auto) (0.0-0.4) X10*3/uL Baso # (Auto) (0.0-0.2) X10*3/uL Abs Immat Gran (auto) (0.00-0.03) X10*3/uL Absolute Neuts (auto) (2.0-8.3) x10*3/uL Absolute Nucleated RBC (0.0-0.012) X10*3/uL Nucleated RBC % (auto) (0.0-0.2) /100WBC Sodium (135-145) mmol/L Potassium (3.3-5.1) mmol/L Chloride (96-108) mmol/L Carbon Dioxide (22-29) mmol/L Anion Gap (12-20) BUN (9-16) mg/dL Creatinine (0.5-1.4) mg/dL Estim Creat Clear Calc Estimated GFR Random Glucose (60-115) mg/dL Calcium (8.4-10.2) mg/dL Total Bilirubin (0.0-1.0) mg/dL AST (5-31) U/L ALT (0-31) U/L Alkaline Phosphatase (39-117) U/L Total Protein (6.5-8.0) g/dL Albumin (3.5-5.0) g/dL Urine Color Yellow Urine Appearance Cloudy Urine pH 8.0 (5.0-9.0) Ur Specific [place] 1.010 (1.005-1.025) Urine Protein Negative (Neg-Trace) mg/dL Urine Glucose (UA) Negative (Negative) mg/dL Urine Ketones Negative (Negative) mg/dL Urine Blood Negative (Negative) Urine Nitrite Negative (Negative) Ur Leukocyte Esterase Large (3+) H (Negative) Urine RBC 0-2 (0-2) /HPF Urine WBC >50 H (0-5) /HPF Ur Squamous Epith Cells 11-20 (0-2) /HPF Urine Bacteria 1+ (None Seen) Hyaline Casts 0-2 (0-2) /LPF Urine Opiates Screen Not Detected (Not Detect) Urine Fentanyl Screen Not Detected (Not Detect) Ur Barbiturates Screen Not Detected (Not Detect) Ur Phencyclidine Scrn Not Detected (Not Detect) Ur Amphetamines Screen Not Detected (Not Detect) U Benzodiazepines Scrn Not Detected (Not Detect) Urine Cocaine Screen Not Detected (Not Detect) U Marijuana (THC) Screen Not Detected (Not Detect) Ethyl Alcohol mg/dL COVID-19 (ENDY) Negative (Negative) COVID-19 Clin Com See Note 08/19/22 08/19/22 Range/Units 22:37 22:37 WBC 9.6 (4.8-10.8) X10*3/uL RBC 4.05 L (4.20-5.50) X10*6/uL Hgb 12.2 (12.0-16.0) g/dl Hct 37.5 (37.0-47.0) % MCV 92.6 (80.0-98.0) fL MCH 30.1 (27.0-33.0) pg MCHC 32.5 (31.0-35.0) g/dl RDW 12.8 (11.0-16.0) % Plt Count 217 (160-400) X10*3/uL MPV 11.5 (9.4-12.3) fL Immature Gran % (Auto) 1.0 H (0.0-0.4) % Neut % (Auto) 65.5 (45-73) % Lymph % (Auto) 23.4 (20-40) % [place] % (Auto) 6.3 (2-11) % Eos % (Auto) 2.8 (0-4) % Baso % (Auto) 1.0 (0-2) % Lymph # (Auto) 2.2 (1.2-4.9) X10*3/uL [place] # (Auto) 0.6 (0.1-1.2) X10*3/uL Eos # (Auto) 0.3 (0.0-0.4) X10*3/uL Baso # (Auto) 0.1 (0.0-0.2) X10*3/uL Abs Immat Gran (auto) 0.10 H (0.00-0.03) X10*3/uL Absolute Neuts (auto) 6.3 (2.0-8.3) x10*3/uL Absolute Nucleated RBC 0.000 (0.0-0.012) X10*3/uL Nucleated RBC % (auto) 0.0 (0.0-0.2) /100WBC Sodium 141 (135-145) mmol/L Potassium 4.5 (3.3-5.1) mmol/L Chloride 104 (96-108) mmol/L Carbon Dioxide 25 (22-29) mmol/L Anion Gap 17 (12-20) BUN 7 L (9-16) mg/dL Creatinine 0.60 (0.5-1.4) mg/dL Estim Creat Clear Calc 137.7 Estimated GFR > 60 Random Glucose 107 (60-115) mg/dL Calcium 9.5 (8.4-10.2) mg/dL Total Bilirubin 0.3 (0.0-1.0) mg/dL AST 32 H D (5-31) U/L ALT 37 H (0-31) U/L Alkaline Phosphatase 100 D (39-117) U/L Total Protein 6.4 L (6.5-8.0) g/dL Albumin 4.0 (3.5-5.0) g/dL Urine Color Urine Appearance Urine pH (5.0-9.0) Ur Specific [place] (1.005-1.025) Urine Protein (Neg-Trace) mg/dL Urine Glucose (UA) (Negative) mg/dL Urine Ketones (Negative) mg/dL Urine Blood (Negative) Urine Nitrite (Negative) Ur Leukocyte Esterase (Negative) Urine RBC (0-2) /HPF Urine WBC (0-5) /HPF Ur Squamous Epith Cells (0-2) /HPF Urine Bacteria (None Seen) Hyaline Casts (0-2) /LPF Urine Opiates Screen (Not Detect) Urine Fentanyl Screen (Not Detect) Ur Barbiturates Screen (Not Detect) Ur Phencyclidine Scrn (Not Detect) Ur Amphetamines Screen (Not Detect) U Benzodiazepines Scrn (Not Detect) Urine Cocaine Screen (Not Detect) U Marijuana (THC) Screen (Not Detect) Ethyl Alcohol < 10 mg/dL COVID-19 (ENDY) (Negative) COVID-19 Clin Com Discharge Plan Discharge Clinical Impression: Suicidal ideation Patient Disposition: Still a Patient Prescriptions: No Action albuterol sulfate 90 mcg/actuation HFA aerosol inhaler 2 puff inhalation Q4-6H PRN (Reason: shortness of breath or wheezing) 30 Days Qty: 1 0RF ferrous sulfate 324 mg (65 mg iron) tablet,delayed release (DR/EC) 324 mg PO DAILY 30 Days Qty: 30 0RF capsaicin 0.025 % cream 1 appl topical QID PRN (Reason: pain) oxcarbazepine 150 mg tablet 1 tab PO BID valacyclovir 1 gram tablet 1 tab PO BID trazodone 100 mg tablet 2 tab PO BEDTIME benztropine 1 mg tablet 1 tab PO BID omeprazole 20 mg capsule,delayed release(DR/EC) 1 cap PO QAM sertraline 50 mg tablet 1 tab PO DAILY Spiriva with HandiHaler 18 mcg capsule, w/inhalation device 1 cap inhalation DAILY cholecalciferol (vitamin D3) 25 mcg (1,000 unit) tablet 1 tab PO DAILY gabapentin 400 mg capsule 1 cap PO TID lithium carbonate 600 mg capsule 1 cap PO BID nitroglycerin 0.4 mg tablet, sublingual 0.4 mg sublingual Q5M PRN (Reason: Chest Pain) cyanocobalamin (vitamin B-12) 100 mcg tablet 1 tab PO DAILY olanzapine 10 mg tablet 1 tab PO BEDTIME nicotine 21 mg/24 hr Patch 24 Hour 21 mg transdermal DAILY Qty: 30 0RF cefuroxime axetil 250 mg tablet 250 mg PO BID 7 Days Qty: 14 0RF
[2022-08-19 20:50] LABS: Appearance Urine Cloudy; Color Urine Yellow; Glucose Urine UA Negative (Negative); Leukocyte Esterase Urine Large (3+) (Negative); Nitrite Urine Negative (Negative); UMIC TRIGGER UA YES; Urine Blood Negative (Negative); Urine Ketones Negative (Negative); Urine Protein Negative (Neg-Trace)
[2022-08-19 20:52] LABS: Bacteria Urine 1+ (None Seen); Hyaline Casts Urine 0-2 /LPF (0-2); RBC Urine 0-2 /HPF (0-2); WBC Urine >50 /HPF (0-5)
--- OUTSIDE RECORDS SUMMARY | 2022-08-19 20:58 | XMS_ITS ---
:1970 Author Organization [facility] Address [address] [place] [id number] Care Team Providers Name Role Phone Mike Malone Unavailable Unavailable PROBLEMS Type Condition ICD9-CM ONL00-AC Onset Condition SNOMED Cod e Code Code Dates Status Problem Suicidal R45.851 Active 378639368 ideations Problem Unspecified R56.9 Active 06397363 convulsions Problem Body mass index Z68.41 Active 4085 00319 [BMI] 40.0-44.9, adult Problem Sheltered Z59.01 Active 4641279555 91106 homelessness Problem Atypical R87.610 Active 170413717 squamous cells of undetermined significance on cytologic smear of cervix (ASC-US) Problem 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 Active 8702336 07 sinus and cyst Problem Bipolar F31.62 Active 861152543 disorder, current episode mixed, moderate Problem Fibromyalgia M79.7 Active 1785955 05 ALLERGIES Substance Reaction Event Type Date Status bee sting anaphylaxis Non Drug Allergy May, Active Sulfa anaphylaxis Drug Allergy May, Active Benadryl anaphylaxis Drug Allergy May, Active penicillin anaphylaxis Drug Allergy May, Active aspirin anaphylaxis Drug Allergy May, Active levoFLOXacin hives Drug Allergy May, Active traMADol hives Drug Allergy May, Active ENCOUNTERS Encounter Location Date Diagnosis [address] Jul, [place], [place] [id number] [address] Jul, [place], [place] [id number] [address] Jul, [place], [place] [id number] [address] 17 Jul, 2021 [place], [place] [id number] [facility] [address] [facility] 17 Oct, 2021 [place], [place] [id number] [facility] [address] [facility] 13 Oct, 2021 [place], [place] [id number] [facility] [address] 10 Oct, 2021 [place], [place] [id number] [facility] [address] [facility] 10 Oct, 2021 [place], [place] [id number] [facility] [address] 06 Oct, 2021 [place], [place] [id number] [facility] [address] 06 Oct, 2021 [place], [place] [id number] [facility] [address] 05 Oct, 2021 [place], [place] [id number] [facility] [address] [facility] 03 Jul, 2021 [place], [place] [id number] [facility] [address] [facility] 03 Jul, 2021 [place], [place] [id number] [facility] [address] [facility] 30 Sep, 2021 [place], [place] [id number] [facility] [address] [facility] 28 Sep, 2021 [place], [place] [id number] [facility] [address] [facility] 28 Sep, 2021 [place], [place] [id number] [facility] [address] [facility] 27 Sep, 2021 [place], [place] [id number] [facility] [address] [facility] 26 Sep, 2021 [place] [id number] [facility] [facility] 26 Sep, 2021 [place], [place] [id number] [facility] [address] [facility] 23 Sep, 2021 [place], [place] [id number] [facility] [address] [facility] 23 Sep, 2021 [place], [place] [id number] [facility] [address] [facility] 20 Sep, 2021 [place], [place] [id number] [facility] [address] [facility] 20 Sep, 2021 [place], [place] [id number] [facility] [address] [facility] 19 Sep, 2021 [place], [place] [id number] [facility] [address] [facility] 14 Sep, 2021 [place], [place] [id number] [facility] [address] [facility] 14 Sep, 2021 [place], [place] [id number] [facility] [address] [facility] 07 Sep, 2021 [place], [place] [id number] [facility] [address] May, [place], [place] [id number] [facility] [address] May, [place], [place] [id number] [facility] [address] May, [place], [place] [id number] [facility] [address] Apr, [place], [place] [id number] [facility] [address] [facility] 22 Apr, 2022 [place], [place] [id number] [facility] [address] 20 Apr, 2021 [place], [place] [id number] [facility] [address] 20 Apr, 2021 [place], [place] [id number] [facility] [address] 18 Apr, 2021 [place], [place] [id number] [facility] [address] [facility] 18 Apr, 2021 [place], [place] [id number] [facility] [address] [facility] 14 Apr, 2021 [place], [place] [id number] [facility] [address] [facility] 14 Apr, 2022 [place], [place] [id number] [facility] [address] Apr, [place], [place] [id number] [facility] [address] [facility] 22 Mar, 2021 [place], [place] [id number] [facility] [address] [facility] 17 Mar, 2022 [place], [place] [id number] [facility] [address] [facility] 17 Mar, 2021 [place], [place] [id number] [facility] [address] [facility] 17 Mar, 2021 [place], [place] [id number] [facility] [address] [facility] 13 Mar, 2021 [place], [place] [id number] [facility] [address] [facility] 08 Mar, 2022 [place], [place] [id number] [facility] [facility] 08 Mar, 2021 [place], [place] [id number] [facility] [facility] 05 Mar, 2022 [place] [id number] [facility] [address] [place] [address] February, [facility] [id number] [facility] [address] [facility] February, [place] [id number] [facility] [address] [facility] Jan, [place] [id number] [facility] [address] [place] [address] 15 Jan, 2022 Acute respira tory [facility] distress R06 .03 HOMELESS [id number] 14 Jan, 2022 Bipola r disorder, [place], [place] current episode mixed, [address] moderate F31.[address] 14 Jan, 2022 [place], [place] [id number] [address] 13 Jan, 2022 Fibrom yalgia M79.7 and [place], [place] Bipolar disorder , [id number] current episode mixed, moderate F31.62 [facility] [address] [place] [address] 31 Dec, 2021 Homeless [id number] Dec, [place], [place] [id number] [address] Dec, Encoun ter for screening [place], [place] for infectious a nd [id number] parasitic diseas es, unspecified Z11. [address] Dec, [place], [place] [id number] [address] Dec, Bipola r disorder, [place] current episode mixed, [address] moderate F31.62 ; Localized swelli ng, mass and lump, head R 22.0 and Fibromyalgia M79 .[address] Dec, [place], [place] [id number] [facility] [address] [place] [address] 10 Aug, 2021 Homeless [id number] [address] May, [place], [place] [id number] [address] Apr, [place], [place] [id number] [address] Apr, [place], [place] [id number] [address] May, [facility] [place] [id number] [address] Jan, [facility] [place], [place] [id number] [address] Jan, Unspec ified convulsions [place] R56.9 ; Encounte r for 309328446 screening for in fectious and parasitic di seases, unspecified Z11. 9 ; Suicidal ideatio ns R45.851 and Home lessness Z59.0 IMMUNIZATIONS Vaccine Route Administration Date Status Moderna Covid-19 Booster Administration - Unknown Dec Administered Third Dose (Single Dose 50 mcg/0.25 mL Tdap Unknown April 17, 2015 Administered PPSV 23 Unknown Nov 29, 2018 Administered [place] COVID-19 Vaccine Unknown Jun 24, 2021 Adminis tered Influenza Unknown Aug 25, 2021 Administered SOCIAL HISTORY Qualifiers Date Current Smoker REASON FOR REFERRAL Reason [facility] [place], [address] [place] Provider: Zen Galvez - for l arge swelling behind left ear. Plz [place] biopsy and andrew [place] [facility] [place] Referral Organization [facility] Referring Provider First Name Cristina Referring Provider Last Name Valeriano Referring Provider Specialty Family Practice Referring Provider Referred Provider [facility] [employer] [facility] Referred Provider Specialty Otology, Laryngology, Rhin ology Referral Appointment Date 2022-03-08 Reason Needs rollator Referral Organization [facility] Referring Provider First Name Cristina Referring Provider Last Name Valeriano Referring Provider Specialty Family Practice Referring Provider Referred Provider Sarah,Durable Med ical Equipment FUNCTIONAL STATUS PLAN OF CARE Activity Details Referral 2022-03-08, [facility], [address] [place] Provider: Zen aGlvez - for large sw elling behind left ear. Plz send biopsy and imaging records [place] [facility] [place] o f [employer] [facility] Referral Needs rollator, Durable Medi angelica Equipment Sarah VITAL SIGNS Height 65.5 in 2022-02-11 Weight 275 lbs 2022-02-10 BMI 45.06 kg/m2 2022-02-10 Oximetry 95 2022-02-11 Temperature 96.7 degrees Fahrenheit 2022-02-11 Blood pressure systolic 120 2022-02-10 Blood pressure diastolic 78 2022-02-10 MEDICATIONS Medication Instructions Dosage Frequency Start End Duration Statu s Date Date ketorolac 10 mg orally 3 times a 1 tab(s) 13 Jan, 4 day( s) Unknown day with meals- 2021 first dose 4/14 AM Tylenol 325 mg orally every 6 2 tab(s) U nknown hours PRN olanzapine 10 mg orally qhs one tab 30 days Unkn own lithium 600 mg orally bid 1 cap(s) 12h 30 days Unkno wn Valtrex 1 g orally 2 times a 1 tab(s) 12h 30 days Un known day Trazodone 100mg orally qhs 1 tab(s) 30 days Unkn own 150 mg benztropine 1 mg orally qhs 1 tab(s) 30 days Unk nown Neurontin 300 mg orally 2 times a 1 cap(s) 12h 30 da ys Unknown day omeprazole 20 mg orally once a 1 cap(s) 24h 30 days Unknown day Vitamin D3 1000 orally once a as directed 24h Unknown intl units day DermaCerin Unknown fluticasone-salm inhaled 2 times 1 INH 12h Unknown eterol 232 a day mcg-14 mcg/inh Albuterol inhaled every 6 2 puff(s) 6h Unkn own (Eqv-ProAir HFA) hours 90 mcg/inh OXcarbazepine orally 2 times a 1 tab(s) 12h 30 days Unknown 150 mg day prazosin 2 mg orally qhs 1 cap(s) 30 days Unknow n ferrous sulfate orally once a 1 tab(s) 24h U nknown 325 mg day Aspercreme Back Unknown and Body nicotine 2 mg chewed every 2 2 GUM Unk nown hours nicotine 21 transdermally 1 PATCH 24h Unknow n mg/24 hr once a day PROCEDURES Procedure Date Ordered Result Body Site SPECIMEN HANDLING February 11, 2022 VENIPUNCT, ROUTINE* December 29, 2021 CLINIC VST/ENCOUNTER ALL-INCLUSIVE Dec 28, 2021 CLINIC VST/ENCOUNTER ALL-INCLUSIVE February 28, 2020 CLINIC VST/ENCOUNTER ALL-INCLUSIVE February 12, 2022 SPECIMEN HANDLING December 29, 2021 VENIPUNCT, ROUTINE* February 11, 2022 CLINIC VST/ENCOUNTER ALL-INCLUSIVE February 10, 2022 RESULTS Name Result Date Reference Range LIPID PANEL 2022-04-06 X TRIGLYCERIDES 237 CHOLESTEROL, TOTAL 213 HDL CHOLESTEROL 49 LDL-CHOLESTEROL 119 CHOL/HDLC RATIO NON HDL CHOLESTEROL TSH 2022-04-06 TSH 0.45 LITHIUM 2022-04-06 LITHIUM COVID-19 2022-04-12 BASIC METABOLIC PANEL 2022-04-07 GLUCOSE 98 UREA NITROGEN (BUN) 8 CREATININE 0.7 eGFR NON-AFR. CUBAN eGFR BUN/CREATININE RATIO SODIUM 138 POTASSIUM 5.0 CHLORIDE 98 CARBON DIOXIDE 28 CALCIUM 9.2 EGFR CBC (H/H, RBC, INDICES, WBC, PLT) 2022-04-07 WHITE BLOOD CELL COUNT 4.4 RED BLOOD CELL COUNT HEMOGLOBIN 12.5 HEMATOCRIT 40 MCV 95 MCH MCHC RDW PLATELET COUNT 224 MPV CYTOLOGY, NON-TEMPLATE CHECKER 2022-04-07 A CLINICAL IMPRESSION A DIAGNOSIS A GROSS DESCRIPTION A PROCEDURE A SOURCE B CLINICAL IMPRESSION REPORT NOTES REPORT TYPE CLINICAL INFORMATION SCREENER PATHOLOGIST CT Neck W 2022-04-02 COMPREHENSIVE METABOLIC PANEL-[facility] 2022-02-14 GLUCOSE 96 UREA NITROGEN (BUN) 15 CREATININE 0.8 eGFR NON-AFR. CUBAN eGFR BUN/CREATININE RATIO SODIUM 139 POTASSIUM 4.3 CHLORIDE 101 CARBON DIOXIDE 31 CALCIUM 9.5 PROTEIN, TOTAL 6.6 ALBUMIN 4.6 GLOBULIN ALBUMIN/GLOBULIN RATIO 2.3 BILIRUBIN, TOTAL 0.2 ALKALINE PHOSPHATASE 82 AST 18 ALT 20 EGFR CBC (H/H, RBC, INDICES, WBC, PLT) 2022-02-14 WHITE BLOOD CELL COUNT 10.6 RED BLOOD CELL COUNT HEMOGLOBIN 10.4 HEMATOCRIT 34 MCV 99 MCH MCHC RDW PLATELET COUNT [address] Angio: chest with contrast 2022-02-13 LITHIUM 2022-02-12 LITHIUM 0.7 COVID-19 2022-02-12 TSH 2022-02-12 TSH 1.55 Nt-Probnp 2022-02-12 LITHIUM 2022-02-11 LITHIUM 0.7 0.6-1.2 CBC (H/H, RBC, INDICES, WBC, PLT) 2021-12-29 WHITE BLOOD CELL COUNT 7.3 3.8-10.8 RED BLOOD CELL COUNT 4.66 3.80-5.10 HEMOGLOBIN 14.2 11.7-15.5 HEMATOCRIT 42.7 35.0-45.0 MCV 91.6 80.0-100.0 MCH 30.5 27.0-33.0 MCHC 33.3 32.0-36.0 RDW 13.4 11.0-15.0 PLATELET COUNT 370 140-400 MPV 10.1 7.5-12.5 HEMOGLOBIN A1c 2021-12-29 HEMOGLOBIN A1c 5.4 <5.7 LIPID PANEL 2021-12-29 TRIGLYCERIDES 166 <150 CHOLESTEROL, TOTAL 212 <200 HDL CHOLESTEROL 56 > OR = 50 LDL-CHOLESTEROL 128 CHOL/HDLC RATIO 3.8 <5.0 NON HDL CHOLESTEROL 156 <130 COMPREHENSIVE METABOLIC PANEL-[facility] 2021-12-29 GLUCOSE 80 65-99 UREA NITROGEN (BUN) 8 7-25 CREATININE 0.65 0.50-1.05 eGFR NON-AFR. CUBAN 104 > OR = 60 eGFR 120 > OR = 60 BUN/CREATININE RATIO NOT APPLICABLE 6-22 SODIUM 139 135-146 POTASSIUM 4.3 3.5-5.3 CHLORIDE 103 98-110 CARBON DIOXIDE 30 20-32 CALCIUM 10.4 8.6-10.4 PROTEIN, TOTAL 7.3 6.1-8.1 ALBUMIN 4.7 3.6-5.1 GLOBULIN 2.6 1.9-3.7 ALBUMIN/GLOBULIN RATIO 1.8 1.0-2.5 BILIRUBIN, TOTAL 0.4 0.2-1.2 ALKALINE PHOSPHATASE 80 37-153 AST 14 10-35 ALT 14 6-29 TSH 2021-12-29 TSH 1.90 LITHIUM 2021-12-29 LITHIUM 0.7 0.6-1.2 Pap smear 2018-08-09 Pap smear 2016-10-26 REASON FOR VISIT Insurance Providers [facility] Member Patient Patient Patient Patient Patient Subscriber Subscriber Subscriber Group Insurance Plan Plan Plan Plan ID Relationship Address Phone Name Date of ID Name Date of No Type Insurance Insurance Insurance Coverage to Subscriber Address Phone Name Dates [facility] [phone] [facility] self Bhavana [id number] [facility] [id number] [facility] [address] [place] [phone] [place] self Bhavana [id number] Medicaid [id number] 00 Medicaid [place] 2 Standard [facility] Standard [id number] [place] [phone] [place] self Bhavana [id number] Medicaid [id number] [address] C3 [id number] MEDICAL (GENERAL) HISTORY Type Description Date Medical History seizures Medical History Bipolar I Medical History Back Pain - Chronic Medical History Hx of headaches Medical History Asthma Medical History COPD Medical History Depression Medical History Anxiety Medical History Panic attacks Medical History Hx of multiple hernias Medical History Right forearm cyst 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 Surgical History Tubal ligation 1999 Hospitalization History Psych admits - multiple (30) 7 [facility]-4 9 [facility] Hospitalization History Pneumonia multiple
[2022-08-19 21:02] LABS: IDNOW Serial# 55D5AD1C
[2022-08-19 21:03] LABS: COVID-19 Test Negative (Negative)
[2022-08-19 21:04] LABS: Amphetamine Screen Urine Not Detected (Not Detect); Barbiturates, Urine Not Detected (Not Detect); Benzodiazepines Screen Urine Not Detected (Not Detect); Cannabinoid Screen Urine Not Detected (Not Detect); Cocaine Screen Urine Not Detected (Not Detect); Fentanyl, urine Not Detected (Not Detect); Opiate Screen Urine Not Detected (Not Detect); Phencyclidine Screen Urine Not Detected (Not Detect)
[2022-08-19 22:46] LABS: MANUAL DIFF FLAG NO
[2022-08-19 23:05] LABS: Basophils Absolute Auto 0.1 X10*3/uL (0.0-0.2); Eosinophils Absolute Auto 0.3 X10*3/uL (0.0-0.4); Eosinophils Percent Auto 2.8 % (0-4); Hematocrit 37.5 % (37.0-47.0); Hemoglobin 12.2 g/dl (12.0-16.0); Lymphocytes Absolute Auto 2.2 X10*3/uL (1.2-4.9); Lymphocytes Percent Auto 23.4 % (20-40); Mean Corpuscular HGB Conc 32.5 g/dl (31.0-35.0); Mean Corpuscular Hemoglobin 30.1 pg (27.0-33.0); Mean Corpuscular Volume 92.6 fL (80.0-98.0); Mean Platelet Volume 11.5 fL (9.4-12.3); Monocytes Absolute Auto 0.6 X10*3/uL (0.1-1.2); Monocytes Percent Auto 6.3 % (2-11); Neutrophils Absolute Auto 6.3 x10*3/uL (2.0-8.3); Neutrophils Percent Auto 65.5 % (45-73); Platelet Count 217 X10*3/uL (160-400); Red Blood Count 4.05 X10*6/uL (4.20-5.50); Red Cell Distribution Width 12.8 % (11.0-16.0); White Blood Count 9.6 X10*3/uL (4.8-10.8)
[2022-08-19 23:10] LABS: Alanine Aminotransferase 37 U/L (0-31); Alkaline Phosphatase 100 U/L (39-117); Anion Gap 17 (12-20); Aspartate Amino Transferase 32 U/L (5-31); Bilirubin Total 0.3 mg/dL (0.0-1.0); Blood Urea Nitrogen 7 mg/dL (9-16); Calcium 9.5 mg/dL (8.4-10.2); Carbon Dioxide 25 mmol/L (22-29); Chloride 104 mmol/L (96-108); Creatinine Clr Calc Pharmacy 137.7; Estimated Glomerular Filt Rate > 60; Ethanol < 10 mg/dL; Glucose Random 107 mg/dL (60-115); Potassium 4.5 mmol/L (3.3-5.1); Sodium 141 mmol/L (135-145); Total Protein 6.4 g/dL (6.5-8.0)
[2022-08-20 01:03] LABS: Lithium 0.96 mmol/L (0.60-1.20)
[2022-08-20 01:30] VITALS: BP 134/50; PULSE 78; RESP 16; TEMP 37.3; O2SAT 94
--- NOTE | 2022-08-20 06:18 | PC.NURSE ---
Patient slept through the night, no distress observed/reported, med rec completed/pending provider's approval, patient engaged well with [facility] clinician, disposition case management referral because patient requested for stable housing, aspired going to [facility], patient recently had surgery/left neck has 20 + aime, well approximated, cleansed with NS, pad dry, applied thin layer bacitracin per order, no signs and symptoms of infection observed, patient tolerated well, covered with non-adherent pad, secured with tap, behavior appropriate, VSS, mood pleasant, will continue to monitor.
[2022-08-20 08:37] VITALS: BP 150/77; PULSE 70; RESP 14; TEMP 36.9; O2SAT 92
[2022-08-20] MEDS: Acetaminophen 325 MG TABLET 650 MG PO ×2 (09:08→17:43)
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
--- NOTE | 2022-08-20 11:33 | MHC.CM.ED ---
Received case management consult overnight. Patient came to the ER overnight due to crisis. Patient was evaluated by [facility] Crisis and was cleared. Patient is well known to case management due to multiple ER visits. Patient is homeless, has a substance abuse history and has a history of being Bipolar. Patient has been inpatient psych in the past year. Patient is homeless at baseline. She has multiple medical issues that need to be addressed. When discharged from the hospital, patient does not follow up with necessary medical care. Mcfp placement at a alf facility is necessary in order to have patient successfully follow up with her medical medical issues. Her physical health is at risk if follow up is not completed, including biopsy follow up and establishing care with a PCP. Patient is agreeable to senior care placement. Placement will be difficult to find due to substance abuse history. Referral has been broadcasted within 50 miles of [place]. Continue to monitor for d/c neeeds.
[2022-08-20] MEDS: OXcarbazepine 150 MG TABLET PO (20:24)
[2022-08-20] MEDS: OLANZapine 10 MG TABLET PO (20:24)
[2022-08-20] MEDS: Gabapentin 400 MG CAPSULE PO (20:24)
[2022-08-20] MEDS: Benztropine Mesylate 1 MG TABLET PO (20:24)
[2022-08-20] MEDS: Lithium Carbonate 300 MG CAPSULE 600 MG PO (20:24)
[2022-08-20] MEDS: traZODone HCL 100 MG TABLET 200 MG PO (20:24)
[2022-08-20] MEDS: valACYclovir HCL 1,000 MG TABLET 1000 MG PO (20:24)
--- NOTE | 2022-08-21 04:56 | PC.NURSE ---
Patient slept through the night, no distress observed/reported, medication compliant, case management pending placement, behavior appropriate and non concerning, VSS, mood pleasant, will continue to monitor.
[2022-08-21] MEDS: Omeprazole 20 MG CAPSULE.DR PO (06:00)
[2022-08-21] MEDS: Acetaminophen 325 MG TABLET 650 MG PO (08:03)
[2022-08-21] MEDS: Lithium Carbonate 300 MG CAPSULE 600 MG PO ×2 (08:03→21:16)
[2022-08-21] MEDS: OXcarbazepine 150 MG TABLET PO ×2 (08:03→21:14)
[2022-08-21] MEDS: valACYclovir HCL 1,000 MG TABLET 1000 MG PO ×2 (08:03→21:14)
[2022-08-21] MEDS: Gabapentin 400 MG CAPSULE PO ×3 (08:03→21:15)
[2022-08-21] MEDS: Sertraline HCL 50 MG TABLET PO (08:04)
[2022-08-21] MEDS: Ferrous Sulfate 324 MG TABLET.DR PO (08:04)
[2022-08-21] MEDS: Benztropine Mesylate 1 MG TABLET PO ×2 (08:04→21:15)
[2022-08-21] MEDS: Cyanocobalamin (Vitamin B-12) 100 MCG TABLET PO (08:04)
[2022-08-21] MEDS: Cholecalciferol (Vitamin D3) 25 MCG TABLET PO (08:04)
[2022-08-21] MEDS: Nicotine 21 MG PATCH.TD24 TRANSDERMA (08:04)
[2022-08-21 08:11] VITALS: BP 141/78; PULSE 67; RESP 20; TEMP 36.3; O2SAT 92
--- NOTE | 2022-08-21 09:53 | MHC.CM.ED ---
Patient remains in ER. Referral broadcasted within 50 miles. No bed offers made at this time. Referral broadcasted within the entire [facility] to all facilities that are contracted with [facility]. 232 referrals made. [facility] PASRR Level 2 obtained. Continue to monitor for d/c needs.
[2022-08-21 20:26] VITALS: BP 169/94; PULSE 80; RESP 20; TEMP 36.6; O2SAT 95
[2022-08-21] MEDS: traZODone HCL 100 MG TABLET 200 MG PO (21:14)
[2022-08-21] MEDS: OLANZapine 10 MG TABLET PO (21:15)
--- NOTE | 2022-08-22 05:16 | PC.NURSE ---
Patient slept through the night, no distress observed/reported, case management pending placement, VSS, medication compliant, behavior non concerning, appetite good per patient, elimination intact, will continue to monitor.
[2022-08-22] MEDS: Omeprazole 20 MG CAPSULE.DR PO (05:47)
[2022-08-22 06:15] VITALS: BP 145/76; PULSE 70; RESP 17; TEMP 36.7; O2SAT 92
--- NOTE | 2022-08-22 07:04 | PC.NURSE ---
patient appears to remain at frest respirations are even and unlabored patient appears in no distress
[2022-08-22] MEDS: Gabapentin 400 MG CAPSULE PO ×3 (09:26→20:43)
[2022-08-22] MEDS: Cholecalciferol (Vitamin D3) 25 MCG TABLET PO (09:26)
[2022-08-22] MEDS: Ferrous Sulfate 324 MG TABLET.DR PO (09:26)
[2022-08-22] MEDS: Cyanocobalamin (Vitamin B-12) 100 MCG TABLET PO (09:27)
[2022-08-22] MEDS: Sertraline HCL 50 MG TABLET PO (09:27)
[2022-08-22] MEDS: Lithium Carbonate 300 MG CAPSULE 600 MG PO ×2 (09:27→20:44)
[2022-08-22] MEDS: Benztropine Mesylate 1 MG TABLET PO ×2 (09:27→20:44)
[2022-08-22] MEDS: OXcarbazepine 150 MG TABLET PO ×2 (09:27→20:44)
[2022-08-22] MEDS: Nicotine 21 MG PATCH.TD24 TRANSDERMA (09:27)
[2022-08-22] MEDS: valACYclovir HCL 1,000 MG TABLET 1000 MG PO ×2 (09:27→20:43)
[2022-08-22] MEDS: OLANZapine 10 MG TABLET PO (20:43)
[2022-08-22] MEDS: traZODone HCL 100 MG TABLET 200 MG PO (20:44)
[2022-08-22 20:47] VITALS: BP 150/86; PULSE 83; RESP 20; TEMP 36.8; O2SAT 93
[2022-08-23] MEDS: Omeprazole 20 MG CAPSULE.DR PO (05:49)
[2022-08-23 06:00] VITALS: BP 128/80; PULSE 70; RESP 16; TEMP 36.9; O2SAT 92
--- NOTE | 2022-08-23 06:06 | PC.NURSE ---
Patient slept through the night, no distress observed/reported, case management pending placement, VSS, medication compliant, behavior pleasant and non concerning, appetite good per patient, elimination intact, will continue to monitor.
[2022-08-23 08:06] VITALS: BP 144/85; PULSE 82; RESP 14; TEMP 36.8; O2SAT 93
--- NOTE | 2022-08-23 08:35 | MHC.CM.ED ---
Received notification from MELONY Cash that patient wants to leave. Patient requesting help with transportation. Kristopher booked for patient. Patient, Shreya TY and Sonali wellington.
== END 2022-08-23 08:29 | disposition home or self-care (01) ==
PROVIDERS: Nurse Practitioner Family; Emergency Provider Emergency Medicine
DX: F33.1 Major depressive disorder, recurrent, moderate (principal); R45.851 Suicidal ideations; Z20.822 Contact with and (suspected) exposure to COVID-19; Z79.899 Other long term (current) drug therapy
CPT/HCPCS: 36415; 80053; 80178; 80307; 81001; 82077; 85025; 87635; 99285

== ENCOUNTER 2022-08-24 00:24 | Emergency (ER) | payer MEDICAID, SELFPAY ==
[2022-08-24 00:39] VITALS: BP 118/76; PULSE 90; RESP 16; O2SAT 94; BMI 33.3
--- NOTE | 2022-08-24 00:52 | ED_ITS ---
HPI - Psych General Chief Complaint: Psychiatric Symptoms Stated Complaint: SI Time Seen by Provider: 08/24/22 00:30 Source: patient Mode of arrival: ambulatory Limitations: no limitations History of Present Illness HPI Narrative: 52 female history of asthma, COPD, bipolar disorder, borderline personality disorder, , depression, drug use, herpes, mass of the parotid gland, previous suicide attempts, pseudoseizures presenting to the emergency department with complaints of suicidal ideation, depression worsening over the past few days. 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 She reports she recently had surgery for a mass of her parotid gland which they believe was cancerous and now the cancer spreading throughout her body. She tells me she is suicidal with plan to cut herself in the throat or jump off of a bridge. Denies visual, auditory and tactile hallucinations denies homicidal ideation. No medical complaints at this time Related Data Home Medications Medication Instructions Recorded Confirmed capsaicin 0.025 % topical cream 1 appl topical QID PRN pain 07/02/22 08/24/22 benztropine 1 mg tablet 1 tab PO BID 07/23/22 08/24/22 cholecalciferol (vitamin D3) 25 1 tab PO DAILY 07/23/22 08/24/22 mcg (1,000 unit) tablet gabapentin 400 mg capsule 1 cap PO TID 07/23/22 08/24/22 omeprazole 20 mg capsule,delayed 1 cap PO QAM 07/23/22 08/24/22 release oxcarbazepine 150 mg tablet 1 tab PO BID 07/23/22 08/24/22 sertraline 50 mg tablet 1 tab PO DAILY 07/23/22 08/24/22 trazodone 100 mg tablet 2 tab PO BEDTIME 07/23/22 08/24/22 valacyclovir 1 gram tablet 1 tab PO BID 07/23/22 08/24/22 lithium carbonate 600 mg capsule 1 cap PO BID 07/24/22 08/24/22 cyanocobalamin (vitamin B-12) 100 1 tab PO DAILY 08/06/22 08/24/22 mcg tablet nitroglycerin 0.4 mg sublingual 0.4 mg sublingual Q5M PRN Chest 08/06/22 08/24/22 tablet Pain olanzapine 10 mg tablet 1 tab PO BEDTIME 08/06/22 08/24/22 Previous Rx's Medication Instructions Recorded albuterol sulfate 90 mcg/actuation 2 puff inhalation Q4-6H PRN 04/20/22 aerosol inhaler shortness of breath or wheezing 30 days #1 inhaler ferrous sulfate 324 mg (65 mg 324 mg PO DAILY 30 days #30 tabs 05/18/22 iron) tablet,delayed release nicotine 21 mg/24 hr daily 21 mg transdermal DAILY #30 ea 06/07/22 transdermal patch cefuroxime axetil 250 mg tablet 250 mg PO BID 7 days #14 tabs 07/28/22 Allergies Allergy/AdvReac Type Severity Reaction Status Date / Time aspirin [Aspirin] Allergy Severe HIVES,THROAT Verified 06/13/22 19:33 SWELLS bee pollen [BEE STINGS] Allergy Severe ANAPHYLAXIS Verified 06/13/22 19:33 diphenhydramine Allergy Severe hives, Verified 06/13/22 19:33 [From BENADRYL ALLERGY] throat swells Penicillins [PCN] Allergy Severe HIVES Verified 06/13/22 19:33 THROAT SWELLS Sulfa (Sulfonamide Allergy Intermediate HIVES Verified 06/13/22 19:33 Antibiotics) [SULFA (SULFONAMIDE ANTIBIOTICS)] tramadol [TRAMADOL] Allergy Intermediate ITCHING Verified 06/13/22 19:33 latex [LATEX] Allergy Unknown UNKNOWN Verified 06/13/22 19:33 penicillin G Allergy Unknown Unknown Verified 06/13/22 19:33 levofloxacin [From Levaquin] Allergy Hives Verified 06/13/22 19:33 hydroxyzine AdvReac Severe restless Verified 06/13/22 19:33 legs seafood AdvReac Stomach Verified 03/17/22 12:07 Upset Review of Systems Review of Systems: Constitutional : No Weight loss, No Fever, No Chills, No Fatigue, No Malaise ENT/Mouth : No sore throat, No Rhinorrhea Eyes: No Eye Pain, No Swelling, No Redness Cardiovascular : No Chest Pain, No SOB, No Dyspnea on Exertion, No Orthopnea, No Edema, No Palpitations Respiratory : No Cough, No Sputum, No Wheezing Gastrointestinal : No Nausea, No Vomiting, No Diarrhea, No Constipation, No abdominal Pain, No Hematochezia, No Melena Genitourinary : No Dysuria, No Urinary Frequency, No Hematuria, Musculoskeletal : No joint pain, No Myalgias, No Joint Swelling Skin : No Skin Lesions, No rash Neuro : No Weakness, No Numbness, No Dizziness, No Headache Psych : + Anxiety/Panic, + Depression, + SI, No HI All other systems reviewed and are negative Yes all other systems are reviewed and are negative [facility] Past Medical History Attestation statement: The following information was validated with the patient. Source: old records reviewed and nursing notes reviewed Medical History Asthma exacerbation in COPD Asthma-COPD overlap syndrome Bipolar disorder Bipolar I disorder Borderline personality disorder COPD (chronic obstructive pulmonary disease) Depression Drug abuse Herpes Intermittent explosive disorder Mass of parotid gland FABIOLA (obstructive sleep apnea) Post traumatic stress disorder (PTSD) Pseudoseizures Tobacco use Surgical History History of ankle surgery History of appendectomy History of back surgery Hx of cholecystectomy Family History Family History Mother COPD (chronic obstructive pulmonary disease) Social History Social History Household Members: None Household Members Other:: [facility] [place] Housing: Homeless Housing Other:: Sleeps on the couch at [facility] house Do you presently have visiting nurse or other home services: No Unable to assess alcohol history related to: Unknown Alcohol intake: unknown Patient Tobacco Use Status: Current everyday Tobacco user Tobacco use type: Cigarette Cigarette Packs Per Day: 3 Cigarettes Per Day: 2 Years Smoked: 34 e-Cigarette/Vaping Use: Former Use Second Hand Smoke Exposure: Yes Substance Use Type: Crack/Cocaine Advance Directives: Yes Advance Directives on File: Yes Advance Directives Date on File: 06/17/22 service: No Current occupational status: unemployed and disabled Sexual orientation: Straight/Heterosexual Physical Exam Vital Signs: Vital Signs: Last Vital Signs Pulse 90 08/24/22 00:39 Resp 16 08/24/22 00:39 BP 118/76 08/24/22 00:39 Pulse Ox 94 08/24/22 00:39 O2 Del Method 08/24/22 00:39 BMI result Body Mass Index 33.3 vss Appearance: Alert.? Oriented X3.? No acute distress.? Head: Normocephalic, atraumatic, no step-offs or deformities Eyes: Pupils equal, round and reactive to light.? Neck: Normal inspection.? Neck supple.?+ large laceration healing (old) to the lateral aspect of left neck. CVS: Normal heart rate and rhythm.? Pulses normal.? Respiratory: No respiratory distress.? Breath sounds normal.? Abdomen: Soft and nontender.? Skin: Skin warm and dry.? Normal skin color.? Normal skin turgor.? Extremities: No lower extremity edema.? No calf ttp. 5/5 strength to bilateral upper and lower extremities Neuro: Oriented X 3.? No motor deficit.? No sensory deficit. CN 2-12 intact Course Reevaluation(s) Reevaluation #1: Sign-out will be given to doctors 80 pending medical clearance Time: 01:39 MDM - Psych MDM Narrative Medical decision making narrative: 005 52-year-old female presents with suicidal ideation with plan to cut her neck or jump off a bridge, recently found out that she has multiple cancer diagnoses. Physical examination benign Plan at this time is medical clearance evaluation by the behavioral health team. Medical Records Attestation: I reviewed the patient's medical records. Lab Data Attestation: I reviewed the patient's lab results. Critical Care Time Critical Care Time Critical Care Time: No Discharge Plan Discharge Clinical Impression: Depression, Suicidal ideation Patient Disposition: Still a Patient Prescriptions: No Action albuterol sulfate 90 mcg/actuation HFA aerosol inhaler 2 puff inhalation Q4-6H PRN (Reason: shortness of breath or wheezing) 30 Days Qty: 1 0RF ferrous sulfate 324 mg (65 mg iron) tablet,delayed release (DR/EC) 324 mg PO DAILY 30 Days Qty: 30 0RF capsaicin 0.025 % cream 1 appl topical QID PRN (Reason: pain) oxcarbazepine 150 mg tablet 1 tab PO BID valacyclovir 1 gram tablet 1 tab PO BID trazodone 100 mg tablet 2 tab PO BEDTIME benztropine 1 mg tablet 1 tab PO BID omeprazole 20 mg capsule,delayed release(DR/EC) 1 cap PO QAM sertraline 50 mg tablet 1 tab PO DAILY cholecalciferol (vitamin D3) 25 mcg (1,000 unit) tablet 1 tab PO DAILY gabapentin 400 mg capsule 1 cap PO TID lithium carbonate 600 mg capsule 1 cap PO BID nitroglycerin 0.4 mg tablet, sublingual 0.4 mg sublingual Q5M PRN (Reason: Chest Pain) cyanocobalamin (vitamin B-12) 100 mcg tablet 1 tab PO DAILY olanzapine 10 mg tablet 1 tab PO BEDTIME nicotine 21 mg/24 hr Patch 24 Hour 21 mg transdermal DAILY Qty: 30 0RF cefuroxime axetil 250 mg tablet 250 mg PO BID 7 Days Qty: 14 0RF
--- OUTSIDE RECORDS SUMMARY | 2022-08-24 01:31 | XMS_ITS ---
:1970 Author Organization [facility] Address [address] [place] [id number] Care Team Providers Name Role Phone Mike Malone Unavailable Unavailable PROBLEMS Type Condition ICD9-CM AQA67-LL Onset Condition SNOMED Cod e Code Code Dates Status Problem Suicidal R45.851 Active 989694695 ideations Problem Unspecified R56.9 Active 74949357 convulsions Problem Body mass index Z68.41 Active 4085 62334 [BMI] 40.0-44.9, adult Problem Sheltered Z59.01 Active 5949561650 72640 homelessness Problem Atypical R87.610 Active 649411847 squamous cells of undetermined significance on cytologic smear of cervix (ASC-US) Problem 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 Active 4636578 07 sinus and cyst Problem Bipolar F31.62 Active 894719645 disorder, current episode mixed, moderate Problem Fibromyalgia M79.7 Active 8074022 05 ALLERGIES Substance Reaction Event Type Date Status bee sting anaphylaxis Non Drug Allergy May, Active Sulfa anaphylaxis Drug Allergy May, Active Benadryl anaphylaxis Drug Allergy May, Active penicillin anaphylaxis Drug Allergy May, Active aspirin anaphylaxis Drug Allergy May, Active levoFLOXacin hives Drug Allergy May, Active traMADol hives Drug Allergy May, Active ENCOUNTERS Encounter Location Date Diagnosis [address] Jul, [place], [place] [id number] [address] Jul, [place] [id number] [address] Jul, [place], [place] [id number] [address] 17 Jul, 2021 [place], [place] [id number] [facility] 17 Oct, 2021 [place], [place] [id number] [facility] 13 Oct, 2021 [place], [place] [id number] [facility] [address] 10 Oct, 2021 [place], [place] [id number] [facility] 10 Oct, 2021 [place], [place] [id number] [facility] [address] 06 Oct, 2021 [place], [place] [id number] [facility] [address] 06 Oct, 2021 [place], [place] [id number] [facility] [address] 05 Oct, 2021 [place], [place] [id number] [facility] 03 Jul, 2021 [place], [place] [id number] [facility] 03 Jul, 2021 [place], [place] [id number] [facility] 30 Sep, 2021 [place], [place] [id number] [facility] 28 Sep, 2021 [place], [place] [id number] [facility] 28 Sep, 2021 [place], [place] [id number] [facility] 27 Sep, 2021 [place], [place] [id number] [facility] 26 Sep, 2021 [place], [place] [id number] [facility] 26 Sep, 2021 [place] [id number] [facility] 23 Sep, 2021 [place], [place] [id number] [facility] 23 Sep, 2021 [place], [place] [id number] [facility] 20 Sep, 2021 [place], [place] [id number] [facility] 20 Sep, 2021 [place], [place] [id number] [facility] 19 Sep, 2021 [place], [place] [id number] [facility] 14 Sep, 2021 [place], [place] [id number] [facility] 14 Sep, 2021 [place], [place] [id number] [facility] 07 Sep, 2021 [place], [place] [id number] [facility] [address] May, [place], [place] [id number] [facility] [address] May, [place], [place] [id number] [facility] [address] May, [place], [place] [id number] [facility] [address] Apr, [place], [place] [id number] [facility] 22 Apr, 2022 [place], [place] [id number] [facility] [address] 20 Apr, 2021 [place], [place] [id number] [facility] [address] 20 Apr, 2021 [place], [place] [id number] [facility] [address] 18 Apr, 2021 [place], [place] [id number] [facility] 18 Apr, 2021 [place], [place] [id number] [facility] 14 Apr, 2021 [place], [place] [id number] [facility] 14 Apr, 2022 [place], [place] [id number] [facility] [address] Apr, [place], [place] [id number] [facility] 22 Mar, 2021 [place], [place] [id number] [facility] 17 Mar, 2022 [place], [place] [id number] [facility] 17 Mar, 2021 [place], [place] [id number] [facility] 17 Mar, 2021 [place] [id number] [facility] 13 Mar, 2021 [place], [place] [id number] [facility] 08 Mar, 2022 [place], [place] [id number] [facility] 08 Mar, 2021 [place], [place] [id number] [facility] 05 Mar, 2022 [place] [id number] [facility] [address] [place] [address] February, [facility] [place] [id number] [facility] February, [place] [id number] [facility] Jan, [place] [id number] [facility] [address] [place] [address] 15 Jan, 2022 Acute respira tory [facility] distress R06 .03 [facility] [place] [id number] [address] 14 Jan, 2022 Bipola r disorder, [place] current episode mixed, [address] moderate F31.[address] 14 Jan, 2022 [place], [place] [id number] [address] 13 Jan, 2022 Fibrom yalgia M79.7 and [place] Bipolar disorder , [id number] current episode mixed, moderate F31.62 [facility] [address] [place] [address] 31 Dec, 2021 Homeless [place] [id number] [address] Dec, [place] [id number] [address] Dec, Encoun ter for screening [place], [place] for infectious a nd [id number] parasitic diseas es, unspecified Z11. [address] Dec, [place] [id number] [address] Dec, Bipola r disorder, [place] current episode mixed, [address] moderate F31.62 ; Localized swelli ng, mass and lump, head R 22.0 and Fibromyalgia M79 .[address] Dec, [place], [place] [id number] [facility] [address] [place] [address] 10 Aug, 2021 Homeless [place] [id number] [address] May, [place] [id number] [address] Apr, [place] [id number] [address] Apr, [place] [id number] [address] May, [facility] [place] [id number] [address] Jan, [facility] [place] [id number] [address] Jan, Unspec ified convulsions [place] R56.9 ; Encounte r for [address]37787754 screening for in fectious and parasitic di [...] Smoker REASON FOR REFERRAL Reason [facility] [place], [address] [place] Provider: Zen Galvez - for l arge swelling behind left ear. Plz send biopsy and andrew ging records from [facility]. Referral Organization [facility] Referring Provider First Name Cristina Referring Provider Last Name Valeriano Referring Provider Specialty Family Practice Referring Provider Referred Provider [facility],o f [facility] Referred Provider Specialty Otology, Laryngology, Rhin ology Referral Appointment Date 2022-03-08 Reason Needs rollator Referral Organization [facility] Referring Provider First Name Cristina Referring Provider Last Name Valeriano Referring Provider Specialty Family Practice Referring Provider Referred Provider Sarah,Durable Med ical Equipment FUNCTIONAL STATUS PLAN OF CARE Activity Details Referral 2022-03-08, [facility], [address] [place] Provider: Zen Galvez - for large sw elling behind left ear. Plz send biopsy and imaging records from [facility] o f [facility] Referral [...] Body Site SPECIMEN HANDLING February 11, 2022 CLINIC VST/ENCOUNTER ALL-INCLUSIVE February 10, 2022 VENIPUNCT, ROUTINE* December 29, 2021 CLINIC VST/ENCOUNTER ALL-INCLUSIVE Dec 28, 2021 CLINIC VST/ENCOUNTER ALL-INCLUSIVE February 28, 2020 SPECIMEN HANDLING December 29, 2021 CLINIC VST/ENCOUNTER ALL-INCLUSIVE February 12, 2022 VENIPUNCT, ROUTINE* February 11, 2022 RESULTS Name Result Date Reference Range [...] [facility] RDW PLATELET COUNT 224 MPV CYTOLOGY, NON-ASSISTANT MERCHANDISER 2022-04-07 A CLINICAL IMPRESSION A DIAGNOSIS A [...] smear 2016-10-26 REASON FOR VISIT Insurance Providers [facility] Member Patient Patient Patient Patient Patient Subscriber Subscriber Subscriber Group Insurance Plan Plan Plan Plan ID Relationship Address Phone Name Date of ID Name Date of No Type Insurance Insurance Insurance Coverage to Subscriber Address Phone Name Dates [facility] [phone] [facility] self Bhavana [id number] [facility] [address] [facility] [address] [place] [phone] [place] self Bhavana [id number] Medicaid [id number] Medicaid [address] [place] C3 [id number] [place] [phone] [place] Bhavana [id number] Medicaid [id number] Medicaid [place] [id number] Standard [facility] Standard [id number] MEDICAL (GENERAL) HISTORY Type Description Date Medical [...]
[2022-08-24 01:46] LABS: Appearance Urine Cloudy; Color Urine Dark Yellow; Glucose Urine UA Negative (Negative); Leukocyte Esterase Urine Large (3+) (Negative); Nitrite Urine Negative (Negative); PH 6.5 (5.0-9.0); Specific Gravity - Urine 1.025 (1.005-1.025); UMIC TRIGGER UA YES; Urine Blood Negative (Negative); Urine Ketones Trace mg/dL (Negative); Urine Protein 30 (1+) mg/dL (Neg-Trace)
[2022-08-24 01:54] LABS: Bacteria Urine 4+ (None Seen); WBC Urine >50 /HPF (0-5)
[2022-08-24 01:54] LABS: MANUAL DIFF FLAG NO
[2022-08-24 01:59] LABS: COVID-19 Test Negative (Negative); IDNOW Serial# 55D5AD1C
[2022-08-24 02:00] LABS: Basophils Absolute Auto 0.1 X10*3/uL (0.0-0.2); Basophils Percent Auto 0.6 % (0-2); Eosinophils Absolute Auto 0.2 X10*3/uL (0.0-0.4); Eosinophils Percent Auto 1.3 % (0-4); Hematocrit 40.3 % (37.0-47.0); Hemoglobin 13.1 g/dl (12.0-16.0); Imm Gran Abs Auto 0.08 X10*3/uL (0.00-0.03); Imm Gran Pct Auto 0.6 % (0.0-0.4); Lymphocytes Percent Auto 21.4 % (20-40); Mean Corpuscular HGB Conc 32.5 g/dl (31.0-35.0); Mean Corpuscular Hemoglobin 29.6 pg (27.0-33.0); Mean Corpuscular Volume 91.2 fL (80.0-98.0); Mean Platelet Volume 9.8 fL (9.4-12.3); Monocytes Absolute Auto 0.8 X10*3/uL (0.1-1.2); Neutrophils Absolute Auto 9.7 x10*3/uL (2.0-8.3); Neutrophils Percent Auto 70.1 % (45-73); Platelet Count 358 X10*3/uL (160-400); Red Blood Count 4.42 X10*6/uL (4.20-5.50); Red Cell Distribution Width 13.2 % (11.0-16.0); White Blood Count 13.9 X10*3/uL (4.8-10.8)
[2022-08-24 02:00] LABS: Amphetamine Screen Urine Not Detected (Not Detect); Barbiturates, Urine Not Detected (Not Detect); Benzodiazepines Screen Urine Not Detected (Not Detect); Cannabinoid Screen Urine Not Detected (Not Detect); Cocaine Screen Urine POSITIVE (Not Detect); Fentanyl, urine Not Detected (Not Detect); Opiate Screen Urine Not Detected (Not Detect); Phencyclidine Screen Urine Not Detected (Not Detect)
[2022-08-24 02:31] LABS: Lithium 0.53 mmol/L (0.60-1.20)
[2022-08-24 02:41] LABS: Acetaminophen LAB < 1 mcg/mL (<30); Alanine Aminotransferase 20 U/L (0-31); Albumin Level 4.6 g/dL (3.5-5.0); Alkaline Phosphatase 92 U/L (39-117); Anion Gap 17 (12-20); Aspartate Amino Transferase 13 U/L (5-31); Bilirubin Total 0.2 mg/dL (0.0-1.0); Blood Urea Nitrogen 13 mg/dL (9-16); Carbon Dioxide 27 mmol/L (22-29); Chloride 102 mmol/L (96-108); Creatinine Clr Calc Pharmacy 97.4; Estimated Glomerular Filt Rate > 60; Ethanol < 10 mg/dL; Glucose Random 104 mg/dL (60-115); Magnesium 1.9 mg/dL (1.6-2.6); Potassium 4.1 mmol/L (3.3-5.1); Salicylate < 5.0 mg/dL (15-30); Sodium 142 mmol/L (135-145); Total Protein 7.1 g/dL (6.5-8.0)
--- NOTE | 2022-08-24 06:43 | PC.NURSE ---
Patient slept through the night, no distress observed/reported, [facility] referral completed/confirmed/pending ETA, medication rec completed/approved, VSS, behavior appropriate, will continue to monitor.
--- NOTE | 2022-08-24 08:26 | PC.NURSE ---
Patient resting, resp unlabored
[2022-08-24 10:27] VITALS: BP 125/68; PULSE 85; RESP 16; TEMP 36.2; O2SAT 94
--- NOTE | 2022-08-24 13:22 | PC.NURSE ---
Patient conversing w/ CARE team. Patient reported feeling discouraged about medical diagnosis, states she was told she had 'cancer in my muscles. Pt affect even, reports some abdominal discomfort and spotting, MD notified.
--- NOTE | 2022-08-24 13:25 | PC.NURSE ---
incision left neck area clean and intact.
[2022-08-24 14:00] VITALS: RESP 20
[2022-08-24] MEDS: Gabapentin 400 MG CAPSULE PO ×2 (15:14→21:22)
--- NOTE | 2022-08-24 15:39 | MHC.CARE ---
Patient is a 52 year-old woman who us well known to the CARE Team and [facility] through multiple previous evaluations and psychiatric admissions. She has a long history of mental health issues and at times substance use which has interfered with her stability, has not been consistently housed in many years has not been, has struggled to follow through medical appointments and treatment recommendations. Most recently, patient has been coming to the ED several times per week seeking support as she cannot ambulate well or effectively care or protect herself in the community. 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 CARE Team met with patient in [facility] for risk assessment as she made suicidal statements upon arrival last night. She often makes similar assertions when seeking help and recants later. Today, she denied suicidal ideation, plan or intention, stated that her depression related to being homeless. Patient has no history of serious attempts and is future oriented. Patient appears to be at her known baseline, she is not having a psychiatric crisis and does not meet the criteria for an inpatient psychiatric admission. Rehab/Detention Care not available to patient due to a variety of factors. A safe and appropriate disposition cannot be made at this time. ED provider, Dr. Hollis consulted and in agreement for patient to remain in the ED, CARE Team will follow up in the morning. Message left for patient?s [facility] Case Manger, Henok Amy ([phone])
[2022-08-24] MEDS: Lithium Carbonate 300 MG CAPSULE 600 MG PO (21:22)
[2022-08-24] MEDS: traZODone HCL 100 MG TABLET 200 MG PO (21:22)
[2022-08-24] MEDS: OLANZapine 10 MG TABLET PO (21:22)
[2022-08-24] MEDS: OXcarbazepine 150 MG TABLET PO (21:22)
[2022-08-24] MEDS: Benztropine Mesylate 1 MG TABLET PO (21:22)
[2022-08-24] MEDS: valACYclovir HCL 1,000 MG TABLET 1000 MG PO (21:22)
[2022-08-25 03:44] VITALS: BP 96/64; PULSE 75; RESP 16; TEMP 36.8; O2SAT 92
[2022-08-25] MEDS: Omeprazole 20 MG CAPSULE.DR PO (06:27)
[2022-08-25] MEDS: Sertraline HCL 50 MG TABLET PO (08:38)
[2022-08-25] MEDS: Benztropine Mesylate 1 MG TABLET PO ×2 (08:38→21:09)
[2022-08-25] MEDS: Cholecalciferol (Vitamin D3) 25 MCG TABLET PO (08:38)
[2022-08-25] MEDS: Cyanocobalamin (Vitamin B-12) 100 MCG TABLET PO (08:38)
[2022-08-25] MEDS: Gabapentin 400 MG CAPSULE PO ×3 (08:38→21:09)
[2022-08-25] MEDS: Lithium Carbonate 300 MG CAPSULE 600 MG PO ×2 (08:38→21:09)
[2022-08-25] MEDS: Ferrous Sulfate 324 MG TABLET.DR PO (08:38)
[2022-08-25] MEDS: valACYclovir HCL 1,000 MG TABLET 1000 MG PO ×2 (08:44→21:23)
[2022-08-25] MEDS: OXcarbazepine 150 MG TABLET PO ×2 (08:44→21:08)
[2022-08-25] MEDS: Nicotine 21 MG PATCH.TD24 TRANSDERMA (08:47)
--- NOTE | 2022-08-25 13:06 | MHC.CARE ---
Patient has been communicating with [facility] regarding housing, she has an intake appointment here tomorrow at 1200 with Cori Graham from [facility]. Confirmed with [facility], Henok stated that an apartment is available for patient if she agrees. updated Cori Graham [phone], [facility] [place] [phone] or [phone], [facility] Henok Reyes, [facility] [phone]
--- NOTE | 2022-08-25 15:41 | PC.NURSE ---
Pt seen this date for individual OT tx. Pt found to be seated in POD milieu socializing among peers with cheerful affect. Pt happily reports I'm getting an apartment! . Pt agreeable to sensory item, sticker puzzle, as well as 1000 peace jig saw puzzle as these are known interests of pt.
[2022-08-25] MEDS: OLANZapine 10 MG TABLET PO (21:09)
[2022-08-25] MEDS: traZODone HCL 100 MG TABLET 200 MG PO (21:09)
[2022-08-25 21:11] VITALS: BP 140/76; PULSE 85; RESP 20; TEMP 36.8; O2SAT 93
[2022-08-26 02:32] VITALS: BP 126/71; PULSE 68; RESP 17; TEMP 36.5; O2SAT 93
[2022-08-26] MEDS: Magnesium Hydrox/Alum Hydrox 30 ML ORAL.SUSP PO (02:34)
[2022-08-26 04:51] VITALS: BP 116/74; PULSE 71; RESP 16; TEMP 36.8; O2SAT 93
[2022-08-26 04:59] LABS: Glucose, Whole Blood 103 mg/dL (60-115)
[2022-08-26] MEDS: Omeprazole 20 MG CAPSULE.DR PO (06:49)
--- NOTE | 2022-08-26 07:14 | PC.NURSE ---
Patient slept through the night, no distress observed/reported except gastric discomfort/Maalox 30 ml administered with + effect, pending case management placement, medication compliant, behavior appropriate, VSS, will continue to monitor.
[2022-08-26] MEDS: Nicotine 21 MG PATCH.TD24 TRANSDERMA (08:56)
[2022-08-26] MEDS: Sertraline HCL 50 MG TABLET PO (08:57)
[2022-08-26] MEDS: Gabapentin 400 MG CAPSULE PO ×2 (08:57→14:21)
[2022-08-26] MEDS: Benztropine Mesylate 1 MG TABLET PO (08:57)
[2022-08-26] MEDS: Ferrous Sulfate 324 MG TABLET.DR PO (08:58)
[2022-08-26] MEDS: Cholecalciferol (Vitamin D3) 25 MCG TABLET PO (08:58)
[2022-08-26] MEDS: Lithium Carbonate 300 MG CAPSULE 600 MG PO (08:58)
[2022-08-26] MEDS: Cyanocobalamin (Vitamin B-12) 100 MCG TABLET PO (08:58)
[2022-08-26] MEDS: OXcarbazepine 150 MG TABLET PO (09:25)
[2022-08-26] MEDS: valACYclovir HCL 1,000 MG TABLET 1000 MG PO (09:25)
[2022-08-26 11:19] VITALS: BP 129/75; PULSE 76; TEMP 37.3; O2SAT 94
--- NOTE | 2022-08-26 14:02 | PC.NURSE ---
[facility]D at bedside.
--- NOTE | 2022-08-26 15:03 | PC.NURSE ---
Pt seen this date for individual OT tx. Pt continues to present with poor insight however exhibits a cheerful affect this day. She is receptive and enthusiastic to engage in activities presented. Pt readily engages in beading activity provided and is receptive to writing journal and sensory item.
== END 2022-08-26 14:48 | disposition home or self-care (01) ==
PROVIDERS: Physician Assistant; Emergency Provider Internal Medicine
DX: F33.1 Major depressive disorder, recurrent, moderate (principal); R45.851 Suicidal ideations; F14.10 Cocaine abuse, uncomplicated; F17.210 Nicotine dependence, cigarettes, uncomplicated; Z20.822 Contact with and (suspected) exposure to COVID-19; Z71.6 Tobacco abuse counseling; Z79.899 Other long term (current) drug therapy
CPT/HCPCS: 80053; 80143; 80178; 80179; 80307; 81001; 82077; 82947; 83735; 85025; 87635; 99285

== ENCOUNTER 2022-09-03 19:56 | Emergency (ER) | payer MEDICAID, SELFPAY ==
[2022-09-03 20:10] VITALS: BMI 35.4
[2022-09-03 20:19] VITALS: BP 143/88; PULSE 104; RESP 18; TEMP 36.3; O2SAT 96
[2022-09-03 20:30] LABS: Appearance Urine Cloudy; Color Urine Dark Yellow; Glucose Urine UA Negative (Negative); Leukocyte Esterase Urine Large (3+) (Negative); Nitrite Urine Negative (Negative); Specific Gravity - Urine >= 1.030 (1.005-1.025); UMIC TRIGGER UACC YES; Urine Blood Negative (Negative); Urine Ketones Trace mg/dL (Negative); Urine Protein 30 (1+) mg/dL (Neg-Trace)
[2022-09-03 20:32] LABS: Bacteria Urine 4+ (None Seen); Hyaline Casts Urine 0-2 /LPF (0-2); RBC Urine 0-2 /HPF (0-2); Squamous Epithelial Cell Urine >20 /HPF (0-2); UACC Culture Trigger YES; WBC Urine >50 /HPF (0-5)
[2022-09-03 20:42] LABS: COVID-19 Test Negative (Negative)
--- NOTE | 2022-09-03 20:45 | MHC.CARE ---
Care Team completed [facility] smart sheet.
[2022-09-03 20:50] LABS: Amphetamine Screen Urine Not Detected (Not Detect); Barbiturates, Urine Not Detected (Not Detect); Benzodiazepines Screen Urine Not Detected (Not Detect); Cannabinoid Screen Urine Not Detected (Not Detect); Cocaine Screen Urine POSITIVE (Not Detect); Fentanyl, urine Not Detected (Not Detect); Opiate Screen Urine Not Detected (Not Detect); Phencyclidine Screen Urine Not Detected (Not Detect)
--- NOTE | 2022-09-03 21:42 | ED.PSYCH ---
HPI - Psych General Chief Complaint: Psychiatric Symptoms Stated Complaint: SI Time Seen by Provider: 09/03/22 20:03 Source: patient Mode of arrival: ambulatory Limitations: no limitations History of Present Illness HPI Narrative: Patient comes to the emergency room complaining of suicidal ideation, no specific plan. Patient denies using drugs or alcohol. [facility]. 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 Patient states that she was offered radiation but she declined. Related Data Home Medications Medication Instructions Recorded Confirmed capsaicin 0.025 % topical cream 1 appl topical QID PRN pain 07/02/22 08/24/22 benztropine 1 mg tablet 1 tab PO BID 07/23/22 08/24/22 cholecalciferol (vitamin D3) 25 1 tab PO DAILY 07/23/22 08/24/22 mcg (1,000 unit) tablet gabapentin 400 mg capsule 1 cap PO TID 07/23/22 08/24/22 omeprazole 20 mg capsule,delayed 1 cap PO QAM 07/23/22 08/24/22 release oxcarbazepine 150 mg tablet 1 tab PO BID 07/23/22 08/24/22 sertraline 50 mg tablet 1 tab PO DAILY 07/23/22 08/24/22 trazodone 100 mg tablet 2 tab PO BEDTIME 07/23/22 08/24/22 valacyclovir 1 gram tablet 1 tab PO BID 07/23/22 08/24/22 lithium carbonate 600 mg capsule 1 cap PO BID 07/24/22 08/24/22 cyanocobalamin (vitamin B-12) 100 1 tab PO DAILY 08/06/22 08/24/22 mcg tablet nitroglycerin 0.4 mg sublingual 0.4 mg sublingual Q5M PRN Chest 08/06/22 08/24/22 tablet Pain olanzapine 10 mg tablet 1 tab PO BEDTIME 08/06/22 08/24/22 Previous Rx's Medication Instructions Recorded albuterol sulfate 90 mcg/actuation 2 puff inhalation Q4-6H PRN 04/20/22 aerosol inhaler shortness of breath or wheezing 30 days #1 inhaler ferrous sulfate 324 mg (65 mg 324 mg PO DAILY 30 days #30 tabs 05/18/22 iron) tablet,delayed release nicotine 21 mg/24 hr daily 21 mg transdermal DAILY #30 ea 06/07/22 transdermal patch cefuroxime axetil 250 mg tablet 250 mg PO BID 7 days #14 tabs 07/28/22 Allergies Allergy/AdvReac Type Severity Reaction Status Date / Time aspirin [Aspirin] Allergy Severe HIVES,THROAT Verified 09/03/22 20:12 SWELLS bee pollen [BEE STINGS] Allergy Severe ANAPHYLAXIS Verified 09/03/22 20:12 diphenhydramine Allergy Severe hives, Verified 09/03/22 20:12 [From BENADRYL ALLERGY] throat swells Penicillins [PCN] Allergy Severe HIVES Verified 09/03/22 20:12 THROAT SWELLS Sulfa (Sulfonamide Allergy Intermediate HIVES Verified 09/03/22 20:12 Antibiotics) [SULFA (SULFONAMIDE ANTIBIOTICS)] tramadol [TRAMADOL] Allergy Intermediate ITCHING Verified 09/03/22 20:12 latex [LATEX] Allergy Unknown UNKNOWN Verified 09/03/22 20:12 penicillin G Allergy Unknown Unknown Verified 09/03/22 20:12 levofloxacin [From Levaquin] Allergy Hives Verified 09/03/22 20:12 hydroxyzine AdvReac Severe restless Verified 09/03/22 20:12 legs seafood AdvReac Stomach Verified 09/03/22 20:12 Upset Review of Systems Review of Systems: Constitutional : No Weight loss, No Fever, No Chills, No Night Sweats, No Fatigue, No Malaise ENT/Mouth : No Hearing loss, No Ear Pain, No Nasal Congestion, No Sinus Pain, No Hoarseness, No sore throat, No Rhinorrhea, No Swallowing Difficulty Eyes: No Eye Pain, No Swelling, No Redness, No Foreign Body, No Discharge, No Vision Changes Cardiovascular : No Chest Pain, No SOB, No Dyspnea on Exertion, No Orthopnea, No Edema, No Palpitations Respiratory : No Cough, No Sputum, No Wheezing, No Smoke Exposure, No Dyspnea Gastrointestinal : No Nausea, No Vomiting, No Diarrhea, No Constipation, No abdominal Pain, No Hematochezia, No Melena Genitourinary : no irregular bleeding, No Dysuria, No Urinary Frequency, No Hematuria, No Urinary Incontinence, No Urgency, No Flank Pain, No Urinary Flow Changes, No Hesitancy Musculoskeletal : No joint pain, No Myalgias, No Joint Swelling Skin : No Skin Lesions, No rash Neuro : No Weakness, No Numbness, No Paresthesias, No Loss of Consciousness, No Dizziness, No Headache Psych : No Anxiety/Panic, complaining of depression and SI Heme/Lymph: No Bruising, No Bleeding,No Lymphadenopathy Endocrine : No Polyuria, No Polydipsia, No Temperature Intolerance [facility] Past Medical History Medical History Asthma exacerbation in COPD Asthma-COPD overlap syndrome Bipolar disorder Bipolar I disorder Borderline personality disorder COPD (chronic obstructive pulmonary disease) Depression Drug abuse Herpes Intermittent explosive disorder Mass of parotid gland FABIOLA (obstructive sleep apnea) Post traumatic stress disorder (PTSD) Pseudoseizures Tobacco use Surgical History History of ankle surgery History of appendectomy History of back surgery Hx of cholecystectomy Family History Family History Mother COPD (chronic obstructive pulmonary disease) Social History Social History Household Members: None Household Members Other:: [facility] in [place] Housing: Homeless Housing Other:: Sleeps on the couch at [facility] house Do you presently have visiting nurse or other home services: No Unable to assess alcohol history related to: Unknown Alcohol intake: unknown Patient Tobacco Use Status: Current everyday Tobacco user Tobacco use type: Cigarette Cigarette Packs Per Day: 3 Cigarettes Per Day: 2 Years Smoked: 34 e-Cigarette/Vaping Use: Former Use Second Hand Smoke Exposure: Yes Substance Use Type: Crack/Cocaine Advance Directives: Yes Advance Directives on File: Yes Advance Directives Date on File: 06/17/22 service: No Current occupational status: unemployed and disabled Sexual orientation: Straight/Heterosexual Physical Exam Vital Signs: Vital Signs: Last Vital Signs Temp 97.3 F 09/03/22 20:19 Pulse 104 H 09/03/22 20:19 Resp 18 09/03/22 20:19 BP 143/88 H 09/03/22 20:19 Pulse Ox 96 09/03/22 20:19 O2 Del Method 09/03/22 20:19 BMI result Body Mass Index 35.4 Const: Other: Appearance: Alert. Oriented X3. No acute distress. Eyes: Pupils equal, round and reactive to light. ENT: Pharynx normal. Neck: Normal inspection. Neck supple. No lymph nodes noted. No crepitus, healing scar on the left side of the neck, no signs of infection CVS: Normal heart rate and rhythm. Pulses normal. Normal S1 and S2 Respiratory: No respiratory distress. Breath sounds normal. No Wheezing. No rales Abdomen: Soft and nontender. No rigidity. No distention. Skin: Skin warm and dry. Normal skin color. Normal skin turgor. Extremities: No lower extremity edema. No Lacerations. No Rash Neuro: Oriented X 3. No motor deficit. No sensory deficit. Moving all extremities. No slurred speech. CN 2 through 12 grossly intact Psych: calm, cooperative, normal affect Course Course Course Narrative: Patient's urinalysis is positive for UTI. However, patient has recurrent positive urinalysis, all growing mixed blossom. Patient has no UTI symptoms. At this time, antibiotics are not indicated. [facility] network consult pending. Physician observation started at 21:45 [facility] - Psych Lab Data Labs: Lab Results 09/03/22 09/03/22 09/03/22 Range/Units 20:19 20:19 20:19 Urine Color Dark Yellow Urine Appearance Cloudy Urine pH 6.0 (5.0-9.0) Ur Specific [place] >= 1.030 H (1.005-1.025) Urine Protein 30 (1+) H (Neg-Trace) mg/dL Urine Glucose (UA) Negative (Negative) mg/dL Urine Ketones Trace (Negative) mg/dL Urine Blood Negative (Negative) Urine Nitrite Negative (Negative) Ur Leukocyte Esterase Large (3+) H (Negative) Urine RBC 0-2 (0-2) /HPF Urine WBC >50 H (0-5) /HPF Ur Squamous Epith Cells >20 (0-2) /HPF Urine Bacteria 4+ (None Seen) Hyaline Casts 0-2 (0-2) /LPF Urine Opiates Screen Not Detected (Not Detect) Urine Fentanyl Screen Not Detected (Not Detect) Ur Barbiturates Screen Not Detected (Not Detect) Ur Phencyclidine Scrn Not Detected (Not Detect) Ur Amphetamines Screen Not Detected (Not Detect) U Benzodiazepines Scrn Not Detected (Not Detect) Urine Cocaine Screen POSITIVE H (Not Detect) U Marijuana (THC) Screen Not Detected (Not Detect) COVID-19 (ENDY) Negative (Negative) COVID-19 Clin Com See Note Discharge Plan Discharge Clinical Impression: Suicidal ideation Patient Disposition: Still a Patient Prescriptions: No Action albuterol sulfate 90 mcg/actuation HFA aerosol inhaler 2 puff inhalation Q4-6H PRN (Reason: shortness of breath or wheezing) 30 Days Qty: 1 0RF ferrous sulfate 324 mg (65 mg iron) tablet,delayed release (DR/EC) 324 mg PO DAILY 30 Days Qty: 30 0RF capsaicin 0.025 % cream 1 appl topical QID PRN (Reason: pain) oxcarbazepine 150 mg tablet 1 tab PO BID valacyclovir 1 gram tablet 1 tab PO BID trazodone 100 mg tablet 2 tab PO BEDTIME benztropine 1 mg tablet 1 tab PO BID omeprazole 20 mg capsule,delayed release(DR/EC) 1 cap PO QAM sertraline 50 mg tablet 1 tab PO DAILY cholecalciferol (vitamin D3) 25 mcg (1,000 unit) tablet 1 tab PO DAILY gabapentin 400 mg capsule 1 cap PO TID lithium carbonate 600 mg capsule 1 cap PO BID nitroglycerin 0.4 mg tablet, sublingual 0.4 mg sublingual Q5M PRN (Reason: Chest Pain) cyanocobalamin (vitamin B-12) 100 mcg tablet 1 tab PO DAILY olanzapine 10 mg tablet 1 tab PO BEDTIME nicotine 21 mg/24 hr Patch 24 Hour 21 mg transdermal DAILY Qty: 30 0RF cefuroxime axetil 250 mg tablet 250 mg PO BID 7 Days Qty: 14 0RF
[2022-09-03] MEDS: Omeprazole 20 MG CAPSULE.DR PO (23:21)
[2022-09-03] MEDS: OLANZapine 10 MG TABLET PO (23:21)
[2022-09-03] MEDS: Lithium Carbonate 300 MG CAPSULE 600 MG PO (23:21)
[2022-09-03] MEDS: traZODone HCL 100 MG TABLET 200 MG PO (23:21)
[2022-09-03] MEDS: Gabapentin 400 MG CAPSULE PO (23:21)
[2022-09-03] MEDS: Benztropine Mesylate 1 MG TABLET PO (23:21)
[2022-09-03] MEDS: valACYclovir HCL 1,000 MG TABLET 1000 MG PO (23:21)
[2022-09-03] MEDS: OXcarbazepine 150 MG TABLET PO (23:21)
[2022-09-03 23:45] VITALS: BP 122/67; PULSE 72; RESP 16; TEMP 36.4; O2SAT 95
--- NOTE | 2022-09-04 02:13 | PC.NURSE ---
Patient sleeping on side. Appears comfortable. Resp equal unlabored
--- NOTE | 2022-09-04 10:43 | PC.NURSE ---
has been sleeping all morning, i woke her to let her know that [facility] would be here soon and that breakfast was there for her, quickly back to sleep, no complaints
[2022-09-04] MEDS: Ferrous Sulfate 324 MG TABLET.DR PO (10:57)
[2022-09-04] MEDS: Sertraline HCL 50 MG TABLET PO (10:57)
[2022-09-04] MEDS: Cyanocobalamin (Vitamin B-12) 100 MCG TABLET PO (10:58)
[2022-09-04] MEDS: Benztropine Mesylate 1 MG TABLET PO ×2 (10:58→22:00)
[2022-09-04] MEDS: Omeprazole 20 MG CAPSULE.DR PO (10:58)
[2022-09-04] MEDS: Lithium Carbonate 300 MG CAPSULE 600 MG PO ×2 (10:58→21:59)
[2022-09-04] MEDS: Gabapentin 400 MG CAPSULE PO ×3 (10:58→22:00)
[2022-09-04] MEDS: Nicotine 21 MG PATCH.TD24 TRANSDERMA (10:58)
[2022-09-04] MEDS: valACYclovir HCL 1,000 MG TABLET 1000 MG PO ×2 (10:58→21:59)
[2022-09-04] MEDS: Cholecalciferol (Vitamin D3) 25 MCG TABLET PO (10:58)
[2022-09-04] MEDS: OXcarbazepine 150 MG TABLET PO ×2 (10:58→21:59)
[2022-09-04] MEDS: traZODone HCL 100 MG TABLET 200 MG PO (21:59)
[2022-09-04] MEDS: OLANZapine 10 MG TABLET PO (22:00)
[2022-09-04 22:05] VITALS: BP 128/87; PULSE 89; RESP 17; TEMP 37.3; O2SAT 93
[2022-09-05 09:32] VITALS: BP 128/73; PULSE 84; RESP 20; TEMP 36.4; O2SAT 94
[2022-09-05] MEDS: valACYclovir HCL 1,000 MG TABLET 1000 MG PO ×2 (09:34→20:17)
[2022-09-05] MEDS: OXcarbazepine 150 MG TABLET PO ×2 (09:34→20:17)
[2022-09-05] MEDS: Sertraline HCL 50 MG TABLET PO (09:34)
[2022-09-05] MEDS: Cholecalciferol (Vitamin D3) 25 MCG TABLET PO (09:34)
[2022-09-05] MEDS: Ferrous Sulfate 324 MG TABLET.DR PO (09:34)
[2022-09-05] MEDS: Gabapentin 400 MG CAPSULE PO ×3 (09:34→20:17)
[2022-09-05] MEDS: Nicotine 21 MG PATCH.TD24 TRANSDERMA (09:34)
[2022-09-05] MEDS: Benztropine Mesylate 1 MG TABLET PO ×2 (09:34→20:17)
[2022-09-05] MEDS: Omeprazole 20 MG CAPSULE.DR PO (09:34)
[2022-09-05] MEDS: Lithium Carbonate 300 MG CAPSULE 600 MG PO ×2 (09:35→20:17)
[2022-09-05] MEDS: Cyanocobalamin (Vitamin B-12) 100 MCG TABLET PO (09:35)
--- NOTE | 2022-09-05 19:13 | PC.NURSE ---
Addendum entered by Jazzmine Gamboa RN 09/06/22 06:58: report given to MELONY Gilmore Original Note: report received from MELONY Quiroz pt appears to be asleep resting in bed no signs of acute distress notice breathing equally unlabored
[2022-09-05 19:43] VITALS: BP 127/85; PULSE 77; RESP 16; TEMP 37.2; O2SAT 93
[2022-09-05] MEDS: OLANZapine 10 MG TABLET PO (20:17)
[2022-09-05] MEDS: traZODone HCL 100 MG TABLET 200 MG PO (20:17)
[2022-09-06 04:10] VITALS: BP 151/90; PULSE 67; RESP 17; TEMP 37.2; O2SAT 94
[2022-09-06 08:57] VITALS: BP 140/78; PULSE 66; RESP 16; TEMP 36.6; O2SAT 92
[2022-09-06] MEDS: Nicotine 21 MG PATCH.TD24 TRANSDERMA (08:58)
[2022-09-06] MEDS: valACYclovir HCL 1,000 MG TABLET 1000 MG PO (08:59)
[2022-09-06] MEDS: Ferrous Sulfate 324 MG TABLET.DR PO (08:59)
[2022-09-06] MEDS: Cyanocobalamin (Vitamin B-12) 100 MCG TABLET PO (08:59)
[2022-09-06] MEDS: Lithium Carbonate 300 MG CAPSULE 600 MG PO (08:59)
[2022-09-06] MEDS: OXcarbazepine 150 MG TABLET PO (09:00)
[2022-09-06] MEDS: Sertraline HCL 50 MG TABLET PO (09:01)
[2022-09-06] MEDS: Gabapentin 400 MG CAPSULE PO (09:01)
[2022-09-06] MEDS: Cholecalciferol (Vitamin D3) 25 MCG TABLET PO (09:01)
[2022-09-06] MEDS: Benztropine Mesylate 1 MG TABLET PO (09:01)
[2022-09-06] MEDS: Omeprazole 20 MG CAPSULE.DR PO (09:05)
== END 2022-09-06 09:14 | disposition home or self-care (01) ==
PROVIDERS: Student in an Organized Health Care Education/Training Program; Emergency Provider Emergency Medicine
DX: R45.851 Suicidal ideations (principal); F17.210 Nicotine dependence, cigarettes, uncomplicated; F14.90 Cocaine use, unspecified, uncomplicated; Z20.822 Contact with and (suspected) exposure to COVID-19; Z79.899 Other long term (current) drug therapy; Z71.6 Tobacco abuse counseling
CPT/HCPCS: 80307; 81001; 87086; 87635; 99284; 99285

== ENCOUNTER 2022-09-07 21:48 | Emergency (ER) | payer MEDICAID, SELFPAY ==
--- NOTE | 2022-09-07 21:51 | ED_ITS ---
HPI - Psych General Chief Complaint: Psychiatric Symptoms Stated Complaint: SI Time Seen by Provider: 09/07/22 21:50 Source: patient Mode of arrival: ambulatory Limitations: no limitations History of Present Illness HPI Narrative: 52 female history of asthma, COPD, bipolar disorder, borderline personality disorder, , depression, drug use, herpes, mass of the parotid gland, previous suicide attempts, pseudoseizures presenting to the emergency department with complaints of suicidal ideation, depression worsening over the past few days worsening.? Patient tells me today's triggering event is that she went to [employer] in [place] and used crack cocaine.? She tells me she is suicidal with plan to cut herself in the throat or jump off of a bridge, tells me she tried walking to the bridge today. Endorses seeing shadows and hearing them talk to her to hurt herself. Last used crack [employer], no other drugs, denies tobacco and alcohol.? No medical complaints at this time Related Data Home Medications Medication Instructions Recorded Confirmed capsaicin 0.025 % topical cream 1 appl topical QID PRN pain 07/02/22 09/03/22 benztropine 1 mg tablet 1 tab PO BID 07/23/22 09/03/22 cholecalciferol (vitamin D3) 25 1 tab PO DAILY 07/23/22 09/03/22 mcg (1,000 unit) tablet gabapentin 400 mg capsule 1 cap PO TID 07/23/22 09/03/22 omeprazole 20 mg capsule,delayed 1 cap PO QAM 07/23/22 09/03/22 release oxcarbazepine 150 mg tablet 1 tab PO BID 07/23/22 09/03/22 sertraline 50 mg tablet 1 tab PO DAILY 07/23/22 09/03/22 trazodone 100 mg tablet 2 tab PO BEDTIME 07/23/22 09/03/22 valacyclovir 1 gram tablet 1 tab PO BID 07/23/22 09/03/22 lithium carbonate 600 mg capsule 1 cap PO BID 07/24/22 09/03/22 cyanocobalamin (vitamin B-12) 100 1 tab PO DAILY 08/06/22 09/03/22 mcg tablet nitroglycerin 0.4 mg sublingual 0.4 mg sublingual Q5M PRN Chest 08/06/22 09/03/22 tablet Pain olanzapine 10 mg tablet 1 tab PO BEDTIME 08/06/22 09/03/22 Previous Rx's Medication Instructions Recorded albuterol sulfate 90 mcg/actuation 2 puff inhalation Q4-6H PRN 04/20/22 aerosol inhaler shortness of breath or wheezing 30 days #1 inhaler ferrous sulfate 324 mg (65 mg 324 mg PO DAILY 30 days #30 tabs 05/18/22 iron) tablet,delayed release nicotine 21 mg/24 hr daily 21 mg transdermal DAILY #30 ea 06/07/22 transdermal patch cefuroxime axetil 250 mg tablet 250 mg PO BID 7 days #14 tabs 07/28/22 Allergies Allergy/AdvReac Type Severity Reaction Status Date / Time aspirin [Aspirin] Allergy Severe HIVES,THROAT Verified 09/07/22 22:13 SWELLS bee pollen [BEE STINGS] Allergy Severe ANAPHYLAXIS Verified 09/07/22 22:13 diphenhydramine Allergy Severe hives, Verified 09/07/22 22:13 [From BENADRYL ALLERGY] throat swells Penicillins [PCN] Allergy Severe HIVES Verified 09/07/22 22:13 THROAT SWELLS Sulfa (Sulfonamide Allergy Intermediate HIVES Verified 09/07/22 22:13 Antibiotics) [SULFA (SULFONAMIDE ANTIBIOTICS)] tramadol [TRAMADOL] Allergy Intermediate ITCHING Verified 09/07/22 22:13 latex [LATEX] Allergy Unknown UNKNOWN Verified 09/07/22 22:13 penicillin G Allergy Unknown Unknown Verified 09/07/22 22:13 levofloxacin [From Levaquin] Allergy Hives Verified 09/07/22 22:13 hydroxyzine AdvReac Severe restless Verified 09/07/22 22:13 legs seafood AdvReac Stomach Verified 09/03/22 20:12 Upset Review of Systems Review of Systems: Constitutional : No Weight loss, No Fever, No Chills, No Fatigue, No Malaise ENT/Mouth : No sore throat, No Rhinorrhea Eyes: No Eye Pain, No Swelling, No Redness Cardiovascular : No Chest Pain, No SOB, No Dyspnea on Exertion, No Orthopnea, No Edema, No Palpitations Respiratory : No Cough, No Sputum, No Wheezing Gastrointestinal : No Nausea, No Vomiting, No Diarrhea, No Constipation, No abdominal Pain, No Hematochezia, No Melena Genitourinary : No Dysuria, No Urinary Frequency, No Hematuria, Musculoskeletal : No joint pain, No Myalgias, No Joint Swelling Skin : No Skin Lesions, No rash Neuro : No Weakness, No Numbness, No Dizziness, No Headache Psych : + Anxiety/Panic, + Depression, + SI, No HI Yes all other systems are reviewed and are negative [facility] Past Medical History Attestation statement: The following information was validated with the patient. Source: old records reviewed and nursing notes reviewed Medical History Asthma exacerbation in COPD Asthma-COPD overlap syndrome Bipolar disorder Bipolar I disorder Borderline personality disorder COPD (chronic obstructive pulmonary disease) Depression Drug abuse Herpes Intermittent explosive disorder Mass of parotid gland FABIOLA (obstructive sleep apnea) Post traumatic stress disorder (PTSD) Pseudoseizures Tobacco use Surgical History History of ankle surgery History of appendectomy History of back surgery Hx of cholecystectomy Family History Family History Mother COPD (chronic obstructive pulmonary disease) Social History Social History Household Members: None Household Members Other:: [facility] in [place] Housing: Homeless Housing Other:: Sleeps on the couch at [facility] house Do you presently have visiting nurse or other home services: No Unable to assess alcohol history related to: Unknown Alcohol intake: unknown Patient Tobacco Use Status: Current everyday Tobacco user Tobacco use type: Cigarette Cigarette Packs Per Day: 3 Cigarettes Per Day: 2 Years Smoked: 34 e-Cigarette/Vaping Use: Former Use Second Hand Smoke Exposure: Yes Use of substances other than those prescribed or required for medical reasons: Yes Substance Use Type: Crack/Cocaine Advance Directives: Yes Advance Directives on File: Yes Advance Directives Date on File: 06/17/22 Patient : No service: No Current occupational status: unemployed and disabled Sexual orientation: Straight/Heterosexual Physical Exam Vital Signs: Vital Signs: Last Vital Signs Temp 98.2 F 09/07/22 21:52 Pulse 86 09/07/22 21:52 Resp 18 09/07/22 21:52 BP 108/63 09/07/22 21:52 Pulse Ox 97 09/07/22 21:52 O2 Del Method 09/07/22 21:52 BMI result Body Mass Index 36.6 vss vss? Appearance: Alert.? Oriented X3.? No acute distress.? Head:? Normocephalic, atraumatic, no step-offs or deformities Eyes: Pupils equal, round and reactive to light.? Neck: Normal inspection.? Neck supple.?+ large laceration healing (old) to the lateral aspect of left neck. CVS: Normal heart rate and rhythm.? Pulses normal.? Respiratory: No respiratory distress.? Breath sounds normal.? Abdomen: Soft and nontender.? Skin: Skin warm and dry.? Normal skin color.? Normal skin turgor.? Extremities: No lower extremity edema.? No calf ttp.? 5/5 strength to bilateral upper and lower extremities Neuro: Oriented X 3.? No motor deficit.? No sensory deficit. CN 2-12 intact Course Reevaluation(s) Reevaluation #1: CBC appears to be within normal limits. Chemistry with no acute electrolyte abnormalities requiring intervention. Acetaminophen, salicylates negative. Ethanol negative. Patient positive for cocaine. Patient remains common cooperative, vital signs stable. At this time patient w ill be placed in physician observation to allow more time to be evaluated by the behavioral health team. At observation was started patient common cooperative no acute distress will continue to monitor. Time: 23:52 MDM - Psych MDM Narrative Medical decision making narrative: [id number] 52-year-old female presents with suicidal ideation with plan to cut her neck or jump off a bridge, reports relapse of using crack cocaine Physical examination benign Plan at this time is medical clearance evaluation by the behavioral health team. Medical Records Attestation: I reviewed the patient's medical records. Lab Data Attestation: I reviewed the patient's lab results. Result diagrams: 09/07/22 23:42 09/07/22 23:06 Labs: Lab Results 09/07/22 09/07/22 09/07/22 Range/Units 22:13 22:13 22:13 WBC (4.8-10.8) X10*3/uL RBC (4.20-5.50) X10*6/uL Hgb (12.0-16.0) g/dl Hct (37.0-47.0) % MCV (80.0-98.0) fL MCH (27.0-33.0) pg MCHC (31.0-35.0) g/dl RDW (11.0-16.0) % Plt Count (160-400) X10*3/uL MPV (9.4-12.3) fL Immature Gran % (Auto) (0.0-0.4) % Neut % (Auto) (45-73) % Lymph % (Auto) (20-40) % Porter % (Auto) (2-11) % Eos % (Auto) (0-4) % Baso % (Auto) (0-2) % Lymph # (Auto) (1.2-4.9) X10*3/uL Porter # (Auto) (0.1-1.2) X10*3/uL Eos # (Auto) (0.0-0.4) X10*3/uL Baso # (Auto) (0.0-0.2) X10*3/uL Abs Immat Gran (auto) (0.00-0.03) X10*3/uL Absolute Neuts (auto) (2.0-8.3) x10*3/uL Absolute Nucleated RBC (0.0-0.012) X10*3/uL Nucleated RBC % (auto) (0.0-0.2) /100WBC Sodium (135-145) mmol/L Potassium (3.3-5.1) mmol/L Chloride (96-108) mmol/L Carbon Dioxide (22-29) mmol/L Anion Gap (12-20) BUN (9-16) mg/dL Creatinine (0.5-1.4) mg/dL Estim Creat Clear Calc Estimated GFR Random Glucose (60-115) mg/dL Calcium (8.4-10.2) mg/dL Magnesium (1.6-2.6) mg/dL Total Bilirubin (0.0-1.0) mg/dL AST (5-31) U/L ALT (0-31) U/L Alkaline Phosphatase (39-117) U/L Total Protein (6.5-8.0) g/dL Albumin (3.5-5.0) g/dL Urine Color Dark Yellow Urine Appearance Cloudy Urine pH 7.0 (5.0-9.0) Ur Specific [place] 1.025 (1.005-1.025) Urine Protein 30 (1+) H (Neg-Trace) mg/dL Urine Glucose (UA) Negative (Negative) mg/dL Urine Ketones Trace (Negative) mg/dL Urine Blood Negative (Negative) Urine Nitrite Negative (Negative) Ur Leukocyte Esterase Large (3+) H (Negative) Urine RBC 3-5 H (0-2) /HPF Urine WBC >50 H (0-5) /HPF Ur Squamous Epith Cells 6-10 (0-2) /HPF Urine Bacteria 2+ (None Seen) Hyaline Casts 0-2 (0-2) /LPF Salicylates (15-30) mg/dL Urine Opiates Screen Not Detected (Not Detect) Urine Fentanyl Screen Not Detected (Not Detect) Acetaminophen (<30) mcg/mL Ur Barbiturates Screen Not Detected (Not Detect) Ur Phencyclidine Scrn Not Detected (Not Detect) Ur Amphetamines Screen Not Detected (Not Detect) U Benzodiazepines Scrn Not Detected (Not Detect) Urine Cocaine Screen POSITIVE H (Not Detect) U Marijuana (THC) Screen Not Detected (Not Detect) Ethyl Alcohol mg/dL COVID-19 (ENDY) Negative (Negative) COVID-19 Clin Com See Note 09/07/22 09/07/22 Range/Units 23:06 23:42 WBC 8.5 (4.8-10.8) X10*3/uL RBC 4.50 (4.20-5.50) X10*6/uL Hgb 13.5 (12.0-16.0) g/dl Hct 42.2 (37.0-47.0) % MCV 93.8 (80.0-98.0) fL MCH 30.0 (27.0-33.0) pg MCHC 32.0 (31.0-35.0) g/dl RDW 13.1 (11.0-16.0) % Plt Count 254 D (160-400) X10*3/uL MPV 9.9 (9.4-12.3) fL Immature Gran % (Auto) 0.1 (0.0-0.4) % Neut % (Auto) 61.8 (45-73) % Lymph % (Auto) 28.7 (20-40) % Porter % (Auto) 6.7 (2-11) % Eos % (Auto) 1.9 (0-4) % Baso % (Auto) 0.8 (0-2) % Lymph # (Auto) 2.4 (1.2-4.9) X10*3/uL Porter # (Auto) 0.6 (0.1-1.2) X10*3/uL Eos # (Auto) 0.2 (0.0-0.4) X10*3/uL Baso # (Auto) 0.1 (0.0-0.2) X10*3/uL Abs Immat Gran (auto) 0.01 (0.00-0.03) X10*3/uL Absolute Neuts (auto) 5.2 (2.0-8.3) x10*3/uL Absolute Nucleated RBC 0.000 (0.0-0.012) X10*3/uL Nucleated RBC % (auto) 0.0 (0.0-0.2) /100WBC Sodium 138 (135-145) mmol/L Potassium 4.4 (3.3-5.1) mmol/L Chloride 104 (96-108) mmol/L Carbon Dioxide 19 L (22-29) mmol/L Anion Gap 19 (12-20) BUN 12 (9-16) mg/dL Creatinine 0.72 (0.5-1.4) mg/dL Estim Creat Clear Calc 108.1 Estimated GFR > 60 Random Glucose 91 (60-115) mg/dL Calcium 9.4 (8.4-10.2) mg/dL Magnesium 2.0 (1.6-2.6) mg/dL Total Bilirubin 0.4 (0.0-1.0) mg/dL AST 26 D (5-31) U/L ALT 17 (0-31) U/L Alkaline Phosphatase 86 (39-117) U/L Total Protein 7.7 (6.5-8.0) g/dL Albumin 4.5 (3.5-5.0) g/dL Urine Color Urine Appearance Urine pH (5.0-9.0) Ur Specific Perry (1.005-1.025) Urine Protein (Neg-Trace) mg/dL Urine Glucose (UA) (Negative) mg/dL Urine Ketones (Negative) mg/dL Urine Blood (Negative) Urine Nitrite (Negative) Ur Leukocyte Esterase (Negative) Urine RBC (0-2) /HPF Urine WBC (0-5) /HPF Ur Squamous Epith Cells (0-2) /HPF Urine Bacteria (None Seen) Hyaline Casts (0-2) /LPF Salicylates < 5.0 L (15-30) mg/dL Urine Opiates Screen (Not Detect) Urine Fentanyl Screen (Not Detect) Acetaminophen < 1 (<30) mcg/mL Ur Barbiturates Screen (Not Detect) Ur Phencyclidine Scrn (Not Detect) Ur Amphetamines Screen (Not Detect) U Benzodiazepines Scrn (Not Detect) Urine Cocaine Screen (Not Detect) U Marijuana (THC) Screen (Not Detect) Ethyl Alcohol < 10 mg/dL COVID-19 (ENDY) (Negative) COVID-19 Clin Com Critical Care Time Critical Care Time Critical Care Time: No Discharge Plan Discharge Clinical Impression: Bipolar disorder, Suicidal ideation, Depression Patient Disposition: Still a Patient Prescriptions: No Action albuterol sulfate 90 mcg/actuation HFA aerosol inhaler 2 puff inhalation Q4-6H PRN (Reason: shortness of breath or wheezing) 30 Days Qty: 1 0RF ferrous sulfate 324 mg (65 mg iron) tablet,delayed release (DR/EC) 324 mg PO DAILY 30 Days Qty: 30 0RF capsaicin 0.025 % cream 1 appl topical QID PRN (Reason: pain) oxcarbazepine 150 mg tablet 1 tab PO BID valacyclovir 1 gram tablet 1 tab PO BID trazodone 100 mg tablet 2 tab PO BEDTIME benztropine 1 mg tablet 1 tab PO BID omeprazole 20 mg capsule,delayed release(DR/EC) 1 cap PO QAM sertraline 50 mg tablet 1 tab PO DAILY cholecalciferol (vitamin D3) 25 mcg (1,000 unit) tablet 1 tab PO DAILY gabapentin 400 mg capsule 1 cap PO TID lithium carbonate 600 mg capsule 1 cap PO BID nitroglycerin 0.4 mg tablet, sublingual 0.4 mg sublingual Q5M PRN (Reason: Chest Pain) cyanocobalamin (vitamin B-12) 100 mcg tablet 1 tab PO DAILY olanzapine 10 mg tablet 1 tab PO BEDTIME nicotine 21 mg/24 hr Patch 24 Hour 21 mg transdermal DAILY Qty: 30 0RF cefuroxime axetil 250 mg tablet 250 mg PO BID 7 Days Qty: 14 0RF
[2022-09-07 21:52] VITALS: BP 108/63; BP 134/76; PULSE 86; PULSE 95; RESP 18; TEMP 36.8; O2SAT 97; O2SAT 98; BMI 36.6
[2022-09-07 22:22] LABS: Appearance Urine Cloudy; Color Urine Dark Yellow; Glucose Urine UA Negative (Negative); Leukocyte Esterase Urine Large (3+) (Negative); Nitrite Urine Negative (Negative); Specific Gravity - Urine 1.025 (1.005-1.025); UMIC TRIGGER UACC YES; Urine Blood Negative (Negative); Urine Ketones Trace mg/dL (Negative); Urine Protein 30 (1+) mg/dL (Neg-Trace)
[2022-09-07 22:33] LABS: Bacteria Urine 2+ (None Seen); Hyaline Casts Urine 0-2 /LPF (0-2); UACC Culture Trigger YES; WBC Urine >50 /HPF (0-5)
[2022-09-07 22:36] LABS: COVID-19 Test Negative (Negative); IDNOW Serial# 55D5AD1C
[2022-09-07 22:38] LABS: Amphetamine Screen Urine Not Detected (Not Detect); Barbiturates, Urine Not Detected (Not Detect); Benzodiazepines Screen Urine Not Detected (Not Detect); Cannabinoid Screen Urine Not Detected (Not Detect); Cocaine Screen Urine POSITIVE (Not Detect); Fentanyl, urine Not Detected (Not Detect); Opiate Screen Urine Not Detected (Not Detect); Phencyclidine Screen Urine Not Detected (Not Detect)
[2022-09-07 23:43] LABS: Acetaminophen LAB < 1 mcg/mL (<30); Alanine Aminotransferase 17 U/L (0-31); Albumin Level 4.5 g/dL (3.5-5.0); Alkaline Phosphatase 86 U/L (39-117); Anion Gap 19 (12-20); Aspartate Amino Transferase 26 U/L (5-31); Bilirubin Total 0.4 mg/dL (0.0-1.0); Blood Urea Nitrogen 12 mg/dL (9-16); Calcium 9.4 mg/dL (8.4-10.2); Carbon Dioxide 19 mmol/L (22-29); Chloride 104 mmol/L (96-108); Creatinine Clr Calc Pharmacy 108.1; Estimated Glomerular Filt Rate > 60; Ethanol < 10 mg/dL; Glucose Random 91 mg/dL (60-115); Potassium 4.4 mmol/L (3.3-5.1); Salicylate < 5.0 mg/dL (15-30); Sodium 138 mmol/L (135-145); Total Protein 7.7 g/dL (6.5-8.0)
[2022-09-07 23:46] LABS: MANUAL DIFF FLAG NO
[2022-09-07 23:47] LABS: Basophils Absolute Auto 0.1 X10*3/uL (0.0-0.2); Basophils Percent Auto 0.8 % (0-2); Eosinophils Absolute Auto 0.2 X10*3/uL (0.0-0.4); Eosinophils Percent Auto 1.9 % (0-4); Hematocrit 42.2 % (37.0-47.0); Hemoglobin 13.5 g/dl (12.0-16.0); Imm Gran Abs Auto 0.01 X10*3/uL (0.00-0.03); Imm Gran Pct Auto 0.1 % (0.0-0.4); Lymphocytes Absolute Auto 2.4 X10*3/uL (1.2-4.9); Lymphocytes Percent Auto 28.7 % (20-40); Mean Corpuscular Volume 93.8 fL (80.0-98.0); Mean Platelet Volume 9.9 fL (9.4-12.3); Monocytes Absolute Auto 0.6 X10*3/uL (0.1-1.2); Monocytes Percent Auto 6.7 % (2-11); Neutrophils Absolute Auto 5.2 x10*3/uL (2.0-8.3); Neutrophils Percent Auto 61.8 % (45-73); Platelet Count 254 X10*3/uL (160-400); Red Cell Distribution Width 13.1 % (11.0-16.0); White Blood Count 8.5 X10*3/uL (4.8-10.8)
[2022-09-08] VITALS (7 sets, daily range): BP systolic 101–118; BP diastolic 58–66; PULSE 75–80; RESP 16–20; TEMP 36.6–37.2; O2SAT 95
--- NOTE | 2022-09-08 07:01 | PC.NURSE ---
report given to Camille
--- NOTE | 2022-09-08 08:21 | PC.NURSE ---
pt is a/o x 4 no sob/liliana noted speaks in full sentences. skin pink warm dry. pt is sitting on edge of bed eating breakfast. pt c/o 8/10 r leg pain, states that she has fibromyalgia. pt aware of plan of care. pt states +si.
--- NOTE | 2022-09-08 08:30 | PC.NURSE ---
PT ALERT AND ORIENTED. AMBULATING TO BATHROOM INDEPENDENTLY, GATE STEADY WITH WALKER. PT SHOWERED, WASHED HER HAIR. BED LINEN CHANGED. PT AMBULATED BTB WITH WALKER. PT SITTING UP IN BED.
--- NOTE | 2022-09-08 09:14 | PC.NURSE ---
[facility] smart sheet done/faxed to [facility].
--- NOTE | 2022-09-08 10:15 | PC.NURSE ---
[facility] at bedside, pt aware of plan of care.
--- NOTE | 2022-09-08 11:12 | ECG_ITS ---
Test Reason : psych meds Blood Pressure : / mmHG Vent. Rate : 073 BPM Atrial Rate : 073 BPM P-R Int : 152 ms QRS Dur : 082 ms QT Int : 438 ms P-R-T Axes : 034 037 029 degrees QTc Int : 482 ms Normal sinus rhythm Nonspecific T wave abnormality RSR' or QR pattern in V1 suggests right ventricular conduction delay Abnormal ECG When compared with ECG of 13-JUL-2022 17:12, No significant change was found Referred By: Guy Kraus Electronically Signed By:CHIKA SLAUGHTER MD
[2022-09-08 12:23] LABS: Lithium 0.57 mmol/L (0.60-1.20)
--- NOTE | 2022-09-08 12:30 | PC.NURSE ---
PT REQUESTED/ GIVEN PERSONAL PHONE TO CALL HER PHARMACY TECHNICIAN INFUSION. PT CALL WAS A SUCCESS.
[2022-09-08] MEDS: Nicotine 21 MG PATCH.TD24 TRANSDERMA (12:53)
[2022-09-08] MEDS: Sertraline HCL 50 MG TABLET PO (12:53)
[2022-09-08] MEDS: Gabapentin 400 MG CAPSULE PO ×3 (12:53→20:34)
[2022-09-08] MEDS: OXcarbazepine 150 MG TABLET PO ×2 (12:53→20:34)
[2022-09-08] MEDS: valACYclovir HCL 1,000 MG TABLET 1000 MG PO ×2 (12:53→20:34)
[2022-09-08] MEDS: Lithium Carbonate 300 MG CAPSULE 600 MG PO ×2 (12:54→20:34)
[2022-09-08] MEDS: Omeprazole 20 MG CAPSULE.DR PO (12:54)
[2022-09-08] MEDS: Cholecalciferol (Vitamin D3) 25 MCG TABLET PO (12:54)
[2022-09-08] MEDS: Benztropine Mesylate 1 MG TABLET PO ×2 (12:54→20:34)
[2022-09-08] MEDS: Ferrous Sulfate 324 MG TABLET.DR PO (12:54)
[2022-09-08] MEDS: Cyanocobalamin (Vitamin B-12) 100 MCG TABLET PO (12:54)
--- NOTE | 2022-09-08 13:09 | MHC.CARE ---
Per [facility] clinician, unable to finalize disposition and patient will be a follow up evaluation tomorrow.
--- NOTE | 2022-09-08 18:25 | PC.NURSE ---
Pt aox4. Eating dinner and doing jigsaw puzzles in [facility]. No apparent distress noted. Will continue to monitor. Pt aware of plan of care.
--- NOTE | 2022-09-08 19:19 | PC.NURSE ---
Addendum entered by Jazzmine Gamboa RN 09/09/22 06:49: report given to MELONY Gilmore Original Note: report received from MELONY Cornejo pt watching tv no signs of acute distress notice breathing equally unlabored close monitoring maintained
[2022-09-08] MEDS: traZODone HCL 100 MG TABLET 200 MG PO (20:34)
[2022-09-08] MEDS: OLANZapine 10 MG TABLET PO (20:34)
[2022-09-09 06:12] VITALS: BP 115/70; PULSE 66; RESP 16; TEMP 36.4; O2SAT 92
[2022-09-09] MEDS: Omeprazole 20 MG CAPSULE.DR PO (06:19)
--- NOTE | 2022-09-09 07:00 | PC.NURSE ---
Addendum entered by Deirdre Miller 09/09/22 10:34: confirmation of d/c status from care team received. Pt clear for d/c Original Note: Report taken. Pt denies needs. Sitting in milieu area with other patient working on puzzle.
[2022-09-09 07:29] VITALS: RESP 18
[2022-09-09] MEDS: Cyanocobalamin (Vitamin B-12) 100 MCG TABLET PO (08:02)
[2022-09-09] MEDS: Gabapentin 400 MG CAPSULE PO (08:02)
[2022-09-09] MEDS: Cholecalciferol (Vitamin D3) 25 MCG TABLET PO (08:02)
[2022-09-09] MEDS: valACYclovir HCL 1,000 MG TABLET 1000 MG PO (08:02)
[2022-09-09] MEDS: Nicotine 21 MG PATCH.TD24 TRANSDERMA (08:02)
[2022-09-09] MEDS: Lithium Carbonate 300 MG CAPSULE 600 MG PO (08:02)
[2022-09-09] MEDS: OXcarbazepine 150 MG TABLET PO (08:02)
[2022-09-09] MEDS: Ferrous Sulfate 324 MG TABLET.DR PO (08:03)
[2022-09-09] MEDS: Benztropine Mesylate 1 MG TABLET PO (08:03)
[2022-09-09] MEDS: Sertraline HCL 50 MG TABLET PO (08:03)
[2022-09-09 09:15] VITALS: BP 127/83; PULSE 73; RESP 16; TEMP 36.9; O2SAT 95
== END 2022-09-09 10:39 | disposition home or self-care (01) ==
PROVIDERS: Emergency Medicine; Physician Assistant; Emergency Provider Emergency Medicine Emergency Medical Services
DX: R45.851 Suicidal ideations (principal); F31.9 Bipolar disorder, unspecified; F14.10 Cocaine abuse, uncomplicated; R44.0 Auditory hallucinations; R44.1 Visual hallucinations; Z20.822 Contact with and (suspected) exposure to COVID-19; F41.9 Anxiety disorder, unspecified; F60.3 Borderline personality disorder; F17.210 Nicotine dependence, cigarettes, uncomplicated; Z91.51 Personal history of suicidal behavior; Z79.899 Other long term (current) drug therapy
CPT/HCPCS: 36415; 80053; 80143; 80178; 80179; 80307; 81001; 82077; 83735; 85025; 87086; 87635; 93005; 99285

== ENCOUNTER 2022-09-10 02:17 | Emergency (ER) | payer MEDICAID, SELFPAY ==
[2022-09-10 02:22] VITALS: BP 122/86; PULSE 84; O2SAT 98; BMI 32.3
--- NOTE | 2022-09-10 02:39 | ED_ITS ---
HPI - Psych General Chief Complaint: Psychiatric Symptoms Stated Complaint: SI WITH PLAN Time Seen by Provider: 09/10/22 02:28 Source: patient Mode of arrival: EMS Limitations: no limitations History of Present Illness HPI Narrative: Patient with history of psychotic disorder depression asthma borderline personality disorder cocaine abuse came and as she used cocaine tonight and feels suicidal wanted to jump from the bridge patient been feeling depressed lately does not think cocaine as a cause. Patient been here multiple times for similar seasons patient denies any hallucination delusions Related Data Home Medications Medication Instructions Recorded Confirmed capsaicin 0.025 % topical cream 1 appl topical QID PRN pain 07/02/22 09/08/22 benztropine 1 mg tablet 1 tab PO BID 07/23/22 09/08/22 cholecalciferol (vitamin D3) 25 1 tab PO DAILY 07/23/22 09/08/22 mcg (1,000 unit) tablet gabapentin 400 mg capsule 1 cap PO TID 07/23/22 09/08/22 omeprazole 20 mg capsule,delayed 1 cap PO DAILY@0630 07/23/22 09/08/22 release oxcarbazepine 150 mg tablet 1 tab PO BID 07/23/22 09/08/22 sertraline 50 mg tablet 50 mg PO DAILY 07/23/22 09/08/22 trazodone 100 mg tablet 2 tab PO BEDTIME 07/23/22 09/08/22 valacyclovir 1 gram tablet 1 tab PO BID 07/23/22 09/08/22 lithium carbonate 600 mg capsule 1 cap PO BID 07/24/22 09/08/22 cyanocobalamin (vitamin B-12) 100 1 tab PO DAILY 08/06/22 09/08/22 mcg tablet nitroglycerin 0.4 mg sublingual 0.4 mg sublingual Q5M PRN Chest 08/06/22 09/08/22 tablet Pain olanzapine 10 mg tablet 1 tab PO BEDTIME 08/06/22 09/08/22 Previous Rx's Medication Instructions Recorded albuterol sulfate 90 mcg/actuation 2 puff inhalation Q4-6H PRN 04/20/22 aerosol inhaler shortness of breath or wheezing 30 days #1 inhaler ferrous sulfate 324 mg (65 mg 324 mg PO DAILY 30 days #30 tabs 05/18/22 iron) tablet,delayed release nicotine 21 mg/24 hr daily 21 mg transdermal DAILY #30 ea 06/07/22 transdermal patch Allergies Allergy/AdvReac Type Severity Reaction Status Date / Time aspirin [Aspirin] Allergy Severe HIVES,THROAT Verified 09/07/22 22:13 SWELLS bee pollen [BEE STINGS] Allergy Severe ANAPHYLAXIS Verified 09/07/22 22:13 diphenhydramine Allergy Severe hives, Verified 09/07/22 22:13 [From BENADRYL ALLERGY] throat swells Penicillins [PCN] Allergy Severe HIVES Verified 09/07/22 22:13 THROAT SWELLS Sulfa (Sulfonamide Allergy Intermediate HIVES Verified 09/07/22 22:13 Antibiotics) [SULFA (SULFONAMIDE ANTIBIOTICS)] tramadol [TRAMADOL] Allergy Intermediate ITCHING Verified 09/07/22 22:13 latex [LATEX] Allergy Unknown UNKNOWN Verified 09/07/22 22:13 penicillin G Allergy Unknown Unknown Verified 09/07/22 22:13 levofloxacin [From Levaquin] Allergy Hives Verified 09/07/22 22:13 hydroxyzine AdvReac Severe restless Verified 09/07/22 22:13 legs seafood AdvReac Stomach Verified 09/03/22 20:12 Upset Review of Systems Review of Systems: Yes all other systems are reviewed and are negative PMFSH Past Medical History Medical History Asthma exacerbation in COPD Asthma-COPD overlap syndrome Bipolar disorder Bipolar I disorder Borderline personality disorder COPD (chronic obstructive pulmonary disease) Depression Drug abuse Herpes Intermittent explosive disorder Mass of parotid gland FABIOLA (obstructive sleep apnea) Post traumatic stress disorder (PTSD) Pseudoseizures Tobacco use Surgical History History of ankle surgery History of appendectomy History of back surgery Hx of cholecystectomy Family History Family History Mother COPD (chronic obstructive pulmonary disease) Social History Social History Household Members: None Household Members Other:: [place] in [place] Housing: Homeless Housing Other:: Sleeps on the couch at [facility] house Do you presently have visiting nurse or other home services: No Unable to assess alcohol history related to: Unknown Alcohol intake: unknown Patient Tobacco Use Status: Current everyday Tobacco user Tobacco use type: Cigarette Cigarette Packs Per Day: 3 Cigarettes Per Day: 2 Years Smoked: 34 e-Cigarette/Vaping Use: Former Use Second Hand Smoke Exposure: Yes Substance Use Type: Crack/Cocaine Advance Directives: Yes Advance Directives on File: Yes Advance Directives Date on File: 06/17/22 service: No Current occupational status: unemployed and disabled Sexual orientation: Straight/Heterosexual Physical Exam Vital Signs: Vital Signs: Last Vital Signs Temp 98.1 F 09/10/22 03:02 Pulse 78 09/10/22 03:02 Resp 19 09/10/22 03:02 BP 113/72 09/10/22 03:02 Pulse Ox 93 09/10/22 03:02 O2 Del Method 09/10/22 03:02 BMI result Body Mass Index 32.3 Appearance: Alert. Oriented X3. No acute distress. Eyes: PERRLA, No Nystagmus ENT: Pharynx normal. Oral Mucosa moist Neck: Normal inspection. Neck supple. CVS: Normal heart rate and rhythm. Pulses normal. Respiratory: No respiratory distress. Equal air entry bilateral, no wheezing/rales/rhonchi Abdomen: Soft and nontender. Bowel sounds are present, no mass palpable, no CVA tenderness Skin: Skin warm and dry. Normal skin color. Normal skin turgor. Extremities: No lower extremity edema. No calf tenderness psych: Depressed mood feels suicidal with plan to jump from bridge denies any hallucinations delusions Neuro: Oriented X 3. No motor deficit. No sensory deficit.No cerebellar signs , cranial nerves II-XII intact MDM - Psych Lab Data Labs: Lab Results 09/10/22 09/10/22 Range/Units 03:08 03:08 Urine Opiates Screen Not Detected (Not Detect) Urine Fentanyl Screen Not Detected (Not Detect) Ur Barbiturates Screen Not Detected (Not Detect) Ur Phencyclidine Scrn Not Detected (Not Detect) Ur Amphetamines Screen Not Detected (Not Detect) U Benzodiazepines Scrn Not Detected (Not Detect) Urine Cocaine Screen POSITIVE H (Not Detect) U Marijuana (THC) Screen Not Detected (Not Detect) COVID-19 (ENDY) Negative (Negative) COVID-19 Clin Com See Note Discharge Plan Discharge Clinical Impression: Cocaine abuse, Depression with suicidal ideation Patient Disposition: Still a Patient Prescriptions: No Action albuterol sulfate 90 mcg/actuation HFA aerosol inhaler 2 puff inhalation Q4-6H PRN (Reason: shortness of breath or wheezing) 30 Days Qty: 1 0RF ferrous sulfate 324 mg (65 mg iron) tablet,delayed release (DR/EC) 324 mg PO DAILY 30 Days Qty: 30 0RF capsaicin 0.025 % cream 1 appl topical QID PRN (Reason: pain) oxcarbazepine 150 mg tablet 1 tab PO BID valacyclovir 1 gram tablet 1 tab PO BID trazodone 100 mg tablet 2 tab PO BEDTIME benztropine 1 mg tablet 1 tab PO BID omeprazole 20 mg capsule,delayed release(DR/EC) 1 cap PO DAILY@0630 sertraline 50 mg tablet 50 mg PO DAILY cholecalciferol (vitamin D3) 25 mcg (1,000 unit) tablet 1 tab PO DAILY gabapentin 400 mg capsule 1 cap PO TID lithium carbonate 600 mg capsule 1 cap PO BID nitroglycerin 0.4 mg tablet, sublingual 0.4 mg sublingual Q5M PRN (Reason: Chest Pain) cyanocobalamin (vitamin B-12) 100 mcg tablet 1 tab PO DAILY olanzapine 10 mg tablet 1 tab PO BEDTIME nicotine 21 mg/24 hr Patch 24 Hour 21 mg transdermal DAILY Qty: 30 0RF
--- NOTE | 2022-09-10 02:50 | PC.NURSE ---
patient calm and cooperative with staff. uses walker for ambulation. states SI with plan. able to make needs known. will have checks for safety
[2022-09-10 03:02] VITALS: BP 113/72; PULSE 78; RESP 19; TEMP 36.7; O2SAT 93
[2022-09-10 03:32] LABS: COVID-19 Test Negative (Negative)
[2022-09-10 04:03] LABS: Amphetamine Screen Urine Not Detected (Not Detect); Barbiturates, Urine Not Detected (Not Detect); Benzodiazepines Screen Urine Not Detected (Not Detect); Cannabinoid Screen Urine Not Detected (Not Detect); Cocaine Screen Urine POSITIVE (Not Detect); Fentanyl, urine Not Detected (Not Detect); Opiate Screen Urine Not Detected (Not Detect); Phencyclidine Screen Urine Not Detected (Not Detect)
--- NOTE | 2022-09-10 09:10 | MHC.CARE ---
CARE Team attempted to meet with Pt. Pt was sleeping and did not wake up to t/w.
--- NOTE | 2022-09-10 11:57 | MHC.CARE ---
Pt is well known to [facility] as she chronically presents to the ED with initial report of SI with plan. There is has been observed pattern of Pt redacting these statements after waiting in ED and secondary to finding a place to stay with friends or families in the community. After observing these pattern it can be theorized Pts SI is in the context of homelessness and substance use.
[2022-09-10] MEDS: Gabapentin 400 MG CAPSULE PO ×2 (14:02→21:10)
[2022-09-10] MEDS: Benztropine Mesylate 1 MG TABLET PO (21:10)
[2022-09-10] MEDS: OXcarbazepine 150 MG TABLET PO (21:10)
[2022-09-10] MEDS: traZODone HCL 100 MG TABLET 200 MG PO (21:10)
[2022-09-10] MEDS: valACYclovir HCL 1,000 MG TABLET 1000 MG PO (21:10)
[2022-09-10] MEDS: Lithium Carbonate 300 MG CAPSULE 600 MG PO (21:10)
[2022-09-10] MEDS: OLANZapine 10 MG TABLET PO (21:10)
[2022-09-10 21:11] VITALS: BP 124/65; PULSE 71; RESP 20; TEMP 36.8; O2SAT 94
[2022-09-10 21:34] LABS: Appearance Urine Cloudy; Color Urine Yellow; Glucose Urine UA Negative (Negative); Leukocyte Esterase Urine Large (3+) (Negative); Nitrite Urine Negative (Negative); PH 5.5 (5.0-9.0); Specific Gravity - Urine 1.025 (1.005-1.025); UMIC TRIGGER UACC YES; Urine Blood Trace (Negative); Urine Ketones Negative (Negative); Urine Protein Trace mg/dL (Neg-Trace)
[2022-09-10 21:39] LABS: Bacteria Urine 3+ (None Seen); Hyaline Casts Urine 0-2 /LPF (0-2); RBC Urine 0-2 /HPF (0-2); UACC Culture Trigger YES; WBC Urine >50 /HPF (0-5)
--- NOTE | 2022-09-11 04:05 | PC.NURSE ---
Around 2100 on 09/10, pt presented to staff complaining of painful urination. Pt was also producing dark yellow/light brown discharge into her diaper. Urine itself was clear and yellow with no foul odor. Provider aware and ordered a urine test, will follow up.
[2022-09-11] MEDS: Omeprazole 20 MG CAPSULE.DR PO (06:28)
[2022-09-11 06:55] VITALS: BP 103/52; PULSE 62; RESP 18; TEMP 36.9; O2SAT 91
[2022-09-11] MEDS: Nicotine 21 MG PATCH.TD24 TRANSDERMA (09:59)
[2022-09-11] MEDS: Cyanocobalamin (Vitamin B-12) 100 MCG TABLET PO (10:00)
[2022-09-11] MEDS: OXcarbazepine 150 MG TABLET PO ×2 (10:00→20:47)
[2022-09-11] MEDS: Lithium Carbonate 300 MG CAPSULE 600 MG PO ×2 (10:00→20:48)
[2022-09-11] MEDS: valACYclovir HCL 1,000 MG TABLET 1000 MG PO ×2 (10:00→20:48)
[2022-09-11] MEDS: Sertraline HCL 50 MG TABLET PO (10:00)
[2022-09-11] MEDS: Ferrous Sulfate 324 MG TABLET.DR PO (10:00)
[2022-09-11] MEDS: Benztropine Mesylate 1 MG TABLET PO ×2 (10:00→20:47)
[2022-09-11] MEDS: Cholecalciferol (Vitamin D3) 25 MCG TABLET PO (10:01)
[2022-09-11] MEDS: Gabapentin 400 MG CAPSULE PO ×3 (10:01→20:48)
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
[2022-09-11] MEDS: traZODone HCL 100 MG TABLET 200 MG PO (20:47)
[2022-09-11] MEDS: OLANZapine 10 MG TABLET PO (20:48)
--- NOTE | 2022-09-12 04:18 | PC.NURSE ---
Pt sleeping at this time respirations regular..
[2022-09-12 05:38] VITALS: BP 108/67; PULSE 68; RESP 17; TEMP 36.4; O2SAT 92
[2022-09-12] MEDS: Omeprazole 20 MG CAPSULE.DR PO (06:10)
[2022-09-12 07:19] VITALS: RESP 16
--- NOTE | 2022-09-12 07:26 | PC.NURSE ---
Addendum entered by Deirdre Miller 09/12/22 16:59: care team at bedside for reeval. Addendum entered by Deirdre Miller 09/12/22 16:36: Pt reports no longer being si. Pt denies SI/HI/AH/VH at this time and is requesting to go home. Care team notified. MD notified. Addendum entered by Deirdre Miller 09/12/22 11:28: pt pt no injuries occured. Addendum entered by Deirdre Miller 09/12/22 11:26: Pt awake at this time. Pt spilt hot coffee in room. Some ended up on leg. Pt reports puss coming from vagina . Original Note: Report taken from overnight shift. No acute incidents. Plan is for CARE follow up this AM
[2022-09-12] MEDS: Cholecalciferol (Vitamin D3) 25 MCG TABLET PO (08:21)
[2022-09-12] MEDS: Benztropine Mesylate 1 MG TABLET PO (08:21)
[2022-09-12] MEDS: OXcarbazepine 150 MG TABLET PO (08:21)
[2022-09-12] MEDS: Ferrous Sulfate 324 MG TABLET.DR PO (08:22)
[2022-09-12] MEDS: Gabapentin 400 MG CAPSULE PO ×2 (08:22→14:19)
[2022-09-12] MEDS: Sertraline HCL 50 MG TABLET PO (08:22)
[2022-09-12] MEDS: valACYclovir HCL 1,000 MG TABLET 1000 MG PO (08:23)
[2022-09-12] MEDS: Cyanocobalamin (Vitamin B-12) 100 MCG TABLET PO (08:24)
[2022-09-12] MEDS: Nicotine 21 MG PATCH.TD24 TRANSDERMA (08:24)
[2022-09-12] MEDS: Lithium Carbonate 300 MG CAPSULE 600 MG PO (08:24)
[2022-09-12 14:20] VITALS: RESP 18
[2022-09-12 14:27] LABS: Appearance Urine Cloudy; Color Urine Yellow; Glucose Urine UA Negative (Negative); Leukocyte Esterase Urine Large (3+) (Negative); Nitrite Urine Negative (Negative); PH 8.5 (5.0-9.0); UMIC TRIGGER UACC YES; Urine Blood Negative (Negative); Urine Ketones Negative (Negative); Urine Protein Negative (Neg-Trace)
[2022-09-12 14:32] LABS: Bacteria Urine Trace (None Seen); Hyaline Casts Urine 0-2 /LPF (0-2); RBC Urine 0-2 /HPF (0-2); UACC Culture Trigger YES; WBC Urine >50 /HPF (0-5)
[2022-09-12 16:43] LABS: CT PCR NOT DETECTED (Not Detect.); NG PCR NOT DETECTED (Not Detect.)
--- NOTE | 2022-09-12 17:51 | MHC.CARE ---
CARE team met with pt to assess her current level of risk for causing harm to herself or others. Pt was initially seen on 09/10 and again on 09/11. Pt was seen in the pod room 2. She was alert and oriented, hygiene and grooming were at baseline, mood was fair with congruent affect, and there was no signs or symptoms of psychosis or disturbances of thought or perception. Pt denied experiencing any ongoing thoughts of and suicide and is requestting that she be discharged. Pt reported that she is feeling better and is bored laying in bed all day. She reported that she plans to go to her mother's and stay there until Tuesday when her mother leaves for a 2 week vacation in [place]. Pt reported that her mother lives in section 8 housing and that she can't stay there more than a couple nights at a time. Pt does not require any further behavioral health assessment or intervention at this time. ED attending physician Allan PAULINO was updated and in agreement with recommendation for discharge.
== END 2022-09-12 18:19 | disposition home or self-care (01) ==
PROVIDERS: Emergency Medicine; Emergency Provider Internal Medicine
DX: F33.1 Major depressive disorder, recurrent, moderate (principal); R45.851 Suicidal ideations; F14.10 Cocaine abuse, uncomplicated; F17.210 Nicotine dependence, cigarettes, uncomplicated; Z20.822 Contact with and (suspected) exposure to COVID-19; Z71.6 Tobacco abuse counseling; Z79.899 Other long term (current) drug therapy
CPT/HCPCS: 80307; 81001; 87086; 87491; 87591; 87635; 99285

== ENCOUNTER 2022-09-15 22:46 | Emergency (ER) | payer MEDICAID, SELFPAY ==
[2022-09-15 22:54] VITALS: BP 109/83; BP 132/76; PULSE 92; PULSE 94; RESP 20; TEMP 36.8; O2SAT 95; O2SAT 98; BMI 30.7
--- NOTE | 2022-09-15 23:04 | ED.PSYCH ---
HPI - Psych General Chief Complaint: Psychiatric Symptoms Stated Complaint: si Time Seen by Provider: 09/15/22 22:54 Source: patient Mode of arrival: ambulatory Limitations: no limitations History of Present Illness HPI Narrative: 52 female history of asthma, COPD, bipolar disorder, borderline personality disorder, , depression, drug use, herpes, mass of the parotid gland, previous suicide attempts, pseudoseizures presenting to the emergency department with complaints of suicidal ideation, depression worsening over the past few days worsening. Patient tells me that she wants to jump off of a bridge to kill herself, she tells me this is always been her plan and she wants to do it due to increasing life stressors, she tells me ?the usual . Patient denies visual, auditory and tactile hallucinations. She used some cocaine however denies any other drug use, denies alcohol and tobacco. Denies medical complaints. Related Data Home Medications Medication Instructions Recorded Confirmed capsaicin 0.025 % topical cream 1 appl topical QID PRN pain 07/02/22 09/10/22 benztropine 1 mg tablet 1 tab PO BID 07/23/22 09/10/22 cholecalciferol (vitamin D3) 25 1 tab PO DAILY 07/23/22 09/10/22 mcg (1,000 unit) tablet gabapentin 400 mg capsule 1 cap PO TID 07/23/22 09/10/22 omeprazole 20 mg capsule,delayed 1 cap PO DAILY@0630 07/23/22 09/10/22 release oxcarbazepine 150 mg tablet 1 tab PO BID 07/23/22 09/10/22 sertraline 50 mg tablet 50 mg PO DAILY 07/23/22 09/10/22 trazodone 100 mg tablet 2 tab PO BEDTIME 07/23/22 09/10/22 valacyclovir 1 gram tablet 1 tab PO BID 07/23/22 09/10/22 lithium carbonate 600 mg capsule 1 cap PO BID 07/24/22 09/10/22 cyanocobalamin (vitamin B-12) 100 1 tab PO DAILY 08/06/22 09/10/22 mcg tablet nitroglycerin 0.4 mg sublingual 0.4 mg sublingual Q5M PRN Chest 08/06/22 09/10/22 tablet Pain olanzapine 10 mg tablet 1 tab PO BEDTIME 08/06/22 09/10/22 Previous Rx's Medication Instructions Recorded albuterol sulfate 90 mcg/actuation 2 puff inhalation Q4-6H PRN 04/20/22 aerosol inhaler shortness of breath or wheezing 30 days #1 inhaler ferrous sulfate 324 mg (65 mg 324 mg PO DAILY 30 days #30 tabs 05/18/22 iron) tablet,delayed release nicotine 21 mg/24 hr daily 21 mg transdermal DAILY #30 ea 06/07/22 transdermal patch nitrofurantoin 100 mg PO BID 5 days #10 caps 09/15/22 monohydrate/macrocrystals 100 mg capsule (Macrobid) Allergies Allergy/AdvReac Type Severity Reaction Status Date / Time aspirin [Aspirin] Allergy Severe HIVES,THROAT Verified 09/07/22 22:13 SWELLS bee pollen [BEE STINGS] Allergy Severe ANAPHYLAXIS Verified 09/07/22 22:13 diphenhydramine Allergy Severe hives, Verified 09/07/22 22:13 [From BENADRYL ALLERGY] throat swells Penicillins [PCN] Allergy Severe HIVES Verified 09/07/22 22:13 THROAT SWELLS Sulfa (Sulfonamide Allergy Intermediate HIVES Verified 09/07/22 22:13 Antibiotics) [SULFA (SULFONAMIDE ANTIBIOTICS)] tramadol [TRAMADOL] Allergy Intermediate ITCHING Verified 09/07/22 22:13 latex [LATEX] Allergy Unknown UNKNOWN Verified 09/07/22 22:13 penicillin G Allergy Unknown Unknown Verified 09/07/22 22:13 levofloxacin [From Levaquin] Allergy Hives Verified 09/07/22 22:13 hydroxyzine AdvReac Severe restless Verified 09/07/22 22:13 legs seafood AdvReac Stomach Verified 09/03/22 20:12 Upset Review of Systems Review of Systems: Constitutional : No Weight loss, No Fever, No Chills, No Fatigue, No Malaise ENT/Mouth : No sore throat, No Rhinorrhea Eyes: No Eye Pain, No Swelling, No Redness Cardiovascular : No Chest Pain, No SOB, No Dyspnea on Exertion, No Orthopnea, No Edema, No Palpitations Respiratory : No Cough, No Sputum, No Wheezing Gastrointestinal : No Nausea, No Vomiting, No Diarrhea, No Constipation, No abdominal Pain, No Hematochezia, No Melena Genitourinary : No Dysuria, No Urinary Frequency, No Hematuria, Musculoskeletal : No joint pain, No Myalgias, No Joint Swelling Skin : No Skin Lesions, No rash Neuro : No Weakness, No Numbness, No Dizziness, No Headache Psych : + Anxiety/Panic, + Depression, + SI, No HI?? Yes all other systems are reviewed and are negative [facility] Past Medical History Attestation statement: The following information was validated with the patient. Source: old records reviewed and nursing notes reviewed Medical History Asthma exacerbation in COPD Asthma-COPD overlap syndrome Bipolar disorder Bipolar I disorder Borderline personality disorder COPD (chronic obstructive pulmonary disease) Depression Drug abuse Herpes Intermittent explosive disorder Mass of parotid gland FABIOLA (obstructive sleep apnea) Post traumatic stress disorder (PTSD) Pseudoseizures Tobacco use Surgical History History of ankle surgery History of appendectomy History of back surgery Hx of cholecystectomy Family History Family History Mother COPD (chronic obstructive pulmonary disease) Social History Social History Household Members: None Household Members Other:: [facility] [place] Housing: Homeless Housing Other:: Sleeps on the couch at [facility] house Do you presently have visiting nurse or other home services: No Unable to assess alcohol history related to: Unknown Alcohol intake: unknown Patient Tobacco Use Status: Current everyday Tobacco user Tobacco use type: Cigarette Cigarette Packs Per Day: 3 Cigarettes Per Day: 2 Years Smoked: 34 Smoked in Last 30 Days: No e-Cigarette/Vaping Use: Former Use Second Hand Smoke Exposure: Yes Use of substances other than those prescribed or required for medical reasons: Yes Substance Use Type: Crack/Cocaine Advance Directives: Yes Advance Directives on File: Yes Advance Directives Date on File: 06/17/22 Patient : No service: No Current occupational status: unemployed and disabled Sexual orientation: Straight/Heterosexual Physical Exam Vital Signs: Vital Signs: Last Vital Signs Temp 98.3 F 09/15/22 22:54 Pulse 94 09/15/22 22:54 Resp 20 09/15/22 22:54 BP 109/83 09/15/22 22:54 Pulse Ox 95 09/15/22 22:54 O2 Del Method 09/15/22 22:54 BMI result Body Mass Index 30.7 vss Appearance: Alert.? Oriented X3.? No acute distress.? Head: Normocephalic, atraumatic, no step-offs or deformities Eyes: Pupils equal, round and reactive to light.? ENT: Pharynx normal.? Neck: Normal inspection.? Neck supple.? CVS: Normal heart rate and rhythm.? Pulses normal.? Respiratory: No respiratory distress.? Breath sounds normal.? Abdomen: Soft and nontender.? Skin: Skin warm and dry.? Normal skin color.? Normal skin turgor.? Extremities: No lower extremity edema.? No calf ttp. 5/5 strength to bilateral upper and lower extremities Neuro: Oriented X 3.? No motor deficit.? No sensory deficit. CN 2-12 intact Course Reevaluation(s) Reevaluation #1: CBC within normal limits. Chemistry with no acute findings requiring intervention. UA with infection, will give Macrobid. Scheduled. Urine toxicology positive for cocaine. Ethanol negative. At this time patient will be placed into physician observation to allow more time to be evaluated by the behavioral health team. At time observation was started patient common cooperative no acute distress will continue to monitor. Time: 00:05 Medications Administered Discontinued Medications Generic Name Dose Route Start Last Admin Trade Name Freq PRN Reason Stop Dose Admin Nitrofurantoin Macrocrystals 100 mg 09/15/22 23:39 09/15/22 23:57 Nitrofurantoin Monohyd/M-Cryst 100 Mg Capsule PO 09/15/22 23:40 100 mg ONCE ONE Administration MDM - Psych MDM Narrative Medical decision making narrative: 2300 52-year-old female presents with suicidal ideation with plan to jump off a bridge, reports relapse of using crack cocaine Physical examination benign Plan at this time is medical clearance evaluation by the behavioral health team. Medical Records Attestation: I reviewed the patient's medical records. Lab Data Attestation: I reviewed the patient's lab results. Result diagrams: 09/15/22 23:31 09/15/22 23:31 Labs: Lab Results 09/15/22 09/15/22 09/15/22 Range/Units 23:11 23:11 23:11 WBC (4.8-10.8) X10*3/uL RBC (4.20-5.50) X10*6/uL Hgb (12.0-16.0) g/dl Hct (37.0-47.0) % MCV (80.0-98.0) fL MCH (27.0-33.0) pg MCHC (31.0-35.0) g/dl RDW (11.0-16.0) % Plt Count (160-400) X10*3/uL MPV (9.4-12.3) fL Immature Gran % (Auto) (0.0-0.4) % Neut % (Auto) (45-73) % Lymph % (Auto) (20-40) % [place] % (Auto) (2-11) % Eos % (Auto) (0-4) % Baso % (Auto) (0-2) % Lymph # (Auto) (1.2-4.9) X10*3/uL [place] # (Auto) (0.1-1.2) X10*3/uL Eos # (Auto) (0.0-0.4) X10*3/uL Baso # (Auto) (0.0-0.2) X10*3/uL Abs Immat Gran (auto) (0.00-0.03) X10*3/uL Absolute Neuts (auto) (2.0-8.3) x10*3/uL Absolute Nucleated RBC (0.0-0.012) X10*3/uL Nucleated RBC % (auto) (0.0-0.2) /100WBC Sodium (135-145) mmol/L Potassium (3.3-5.1) mmol/L Chloride (96-108) mmol/L Carbon Dioxide (22-29) mmol/L Anion Gap (12-20) BUN (9-16) mg/dL Creatinine (0.5-1.4) mg/dL Estim Creat Clear Calc Estimated GFR Random Glucose (60-115) mg/dL Calcium (8.4-10.2) mg/dL Magnesium (1.6-2.6) mg/dL Total Bilirubin (0.0-1.0) mg/dL AST (5-31) U/L ALT (0-31) U/L Alkaline Phosphatase (39-117) U/L Total Protein (6.5-8.0) g/dL Albumin (3.5-5.0) g/dL Urine Color Yellow Urine Appearance Cloudy Urine pH 6.5 (5.0-9.0) Ur Specific [place] 1.020 (1.005-1.025) Urine Protein 30 (1+) H (Neg-Trace) mg/dL Urine Glucose (UA) Negative (Negative) mg/dL Urine Ketones Negative (Negative) mg/dL Urine Blood Negative (Negative) Urine Nitrite Negative (Negative) Ur Leukocyte Esterase Large (3+) H (Negative) Urine RBC 3-5 H (0-2) /HPF Urine WBC >50 H (0-5) /HPF Ur Squamous Epith Cells 6-10 (0-2) /HPF Urine Bacteria 2+ (None Seen) Hyaline Casts 0-2 (0-2) /LPF Urine Opiates Screen Not Detected (Not Detect) Urine Fentanyl Screen Not Detected (Not Detect) Ur Barbiturates Screen Not Detected (Not Detect) Ur Phencyclidine Scrn Not Detected (Not Detect) Ur Amphetamines Screen Not Detected (Not Detect) U Benzodiazepines Scrn Not Detected (Not Detect) Urine Cocaine Screen POSITIVE H (Not Detect) U Marijuana (THC) Screen Not Detected (Not Detect) Ethyl Alcohol mg/dL COVID-19 (ENDY) Negative (Negative) COVID-19 Clin Com See Note 09/15/22 09/15/22 Range/Units 23:31 23:31 WBC 9.4 (4.8-10.8) X10*3/uL RBC 4.53 (4.20-5.50) X10*6/uL Hgb 13.9 (12.0-16.0) g/dl Hct 41.4 (37.0-47.0) % MCV 91.4 (80.0-98.0) fL MCH 30.7 (27.0-33.0) pg MCHC 33.6 (31.0-35.0) g/dl RDW 12.7 (11.0-16.0) % Plt Count 260 (160-400) X10*3/uL MPV 10.2 (9.4-12.3) fL Immature Gran % (Auto) 0.2 (0.0-0.4) % Neut % (Auto) 67.8 (45-73) % Lymph % (Auto) 23.5 (20-40) % [place] % (Auto) 6.7 (2-11) % Eos % (Auto) 0.9 (0-4) % Baso % (Auto) 0.9 (0-2) % Lymph # (Auto) 2.2 (1.2-4.9) X10*3/uL [place] # (Auto) 0.6 (0.1-1.2) X10*3/uL Eos # (Auto) 0.1 (0.0-0.4) X10*3/uL Baso # (Auto) 0.1 (0.0-0.2) X10*3/uL Abs Immat Gran (auto) 0.02 (0.00-0.03) X10*3/uL Absolute Neuts (auto) 6.4 (2.0-8.3) x10*3/uL Absolute Nucleated RBC 0.000 (0.0-0.012) X10*3/uL Nucleated RBC % (auto) 0.0 (0.0-0.2) /100WBC Sodium 142 (135-145) mmol/L Potassium 3.8 (3.3-5.1) mmol/L Chloride 104 (96-108) mmol/L Carbon Dioxide 26 (22-29) mmol/L Anion Gap 16 (12-20) BUN 12 (9-16) mg/dL Creatinine 0.71 (0.5-1.4) mg/dL Estim Creat Clear Calc 100.2 Estimated GFR > 60 Random Glucose 101 (60-115) mg/dL Calcium 10.3 H D (8.4-10.2) mg/dL Magnesium 2.0 (1.6-2.6) mg/dL Total Bilirubin 0.4 (0.0-1.0) mg/dL AST 17 (5-31) U/L ALT 14 (0-31) U/L Alkaline Phosphatase 90 (39-117) U/L Total Protein 7.7 (6.5-8.0) g/dL Albumin 4.9 (3.5-5.0) g/dL Urine Color Urine Appearance Urine pH (5.0-9.0) Ur Specific [place] (1.005-1.025) Urine Protein (Neg-Trace) mg/dL Urine Glucose (UA) (Negative) mg/dL Urine Ketones (Negative) mg/dL Urine Blood (Negative) Urine Nitrite (Negative) Ur Leukocyte Esterase (Negative) Urine RBC (0-2) /HPF Urine WBC (0-5) /HPF Ur Squamous Epith Cells (0-2) /HPF Urine Bacteria (None Seen) Hyaline Casts (0-2) /LPF Urine Opiates Screen (Not Detect) Urine Fentanyl Screen (Not Detect) Ur Barbiturates Screen (Not Detect) Ur Phencyclidine Scrn (Not Detect) Ur Amphetamines Screen (Not Detect) U Benzodiazepines Scrn (Not Detect) Urine Cocaine Screen (Not Detect) U Marijuana (THC) Screen (Not Detect) Ethyl Alcohol < 10 mg/dL COVID-19 (ENDY) (Negative) COVID-19 Clin Com Critical Care Time Critical Care Time Critical Care Time: No Discharge Plan Discharge Clinical Impression: Acute anxiety, UTI (urinary tract infection), Suicidal ideation, Bipolar disorder, Depression Patient Disposition: Still a Patient Prescriptions: New nitrofurantoin monohyd/m-cryst [Macrobid] 100 mg capsule 100 mg PO BID 5 Days Qty: 10 0RF Rx Instructions: must administer with a meal/food No Action albuterol sulfate 90 mcg/actuation HFA aerosol inhaler 2 puff inhalation Q4-6H PRN (Reason: shortness of breath or wheezing) 30 Days Qty: 1 0RF ferrous sulfate 324 mg (65 mg iron) tablet,delayed release (DR/EC) 324 mg PO DAILY 30 Days Qty: 30 0RF capsaicin 0.025 % cream 1 appl topical QID PRN (Reason: pain) oxcarbazepine 150 mg tablet 1 tab PO BID valacyclovir 1 gram tablet 1 tab PO BID trazodone 100 mg tablet 2 tab PO BEDTIME benztropine 1 mg tablet 1 tab PO BID omeprazole 20 mg capsule,delayed release(DR/EC) 1 cap PO DAILY@0630 sertraline 50 mg tablet 50 mg PO DAILY cholecalciferol (vitamin D3) 25 mcg (1,000 unit) tablet 1 tab PO DAILY gabapentin 400 mg capsule 1 cap PO TID lithium carbonate 600 mg capsule 1 cap PO BID nitroglycerin 0.4 mg tablet, sublingual 0.4 mg sublingual Q5M PRN (Reason: Chest Pain) cyanocobalamin (vitamin B-12) 100 mcg tablet 1 tab PO DAILY olanzapine 10 mg tablet 1 tab PO BEDTIME nicotine 21 mg/24 hr Patch 24 Hour 21 mg transdermal DAILY Qty: 30 0RF
[2022-09-15 23:20] LABS: Appearance Urine Cloudy; Color Urine Yellow; Glucose Urine UA Negative (Negative); Leukocyte Esterase Urine Large (3+) (Negative); Nitrite Urine Negative (Negative); PH 6.5 (5.0-9.0); UMIC TRIGGER UACC YES; Urine Blood Negative (Negative); Urine Ketones Negative (Negative); Urine Protein 30 (1+) mg/dL (Neg-Trace)
[2022-09-15 23:31] LABS: Bacteria Urine 2+ (None Seen); Hyaline Casts Urine 0-2 /LPF (0-2); UACC Culture Trigger YES; WBC Urine >50 /HPF (0-5)
[2022-09-15 23:35] LABS: MANUAL DIFF FLAG NO
[2022-09-15 23:37] LABS: Basophils Absolute Auto 0.1 X10*3/uL (0.0-0.2); Basophils Percent Auto 0.9 % (0-2); Eosinophils Absolute Auto 0.1 X10*3/uL (0.0-0.4); Eosinophils Percent Auto 0.9 % (0-4); Hematocrit 41.4 % (37.0-47.0); Hemoglobin 13.9 g/dl (12.0-16.0); Imm Gran Abs Auto 0.02 X10*3/uL (0.00-0.03); Imm Gran Pct Auto 0.2 % (0.0-0.4); Lymphocytes Absolute Auto 2.2 X10*3/uL (1.2-4.9); Lymphocytes Percent Auto 23.5 % (20-40); Mean Corpuscular HGB Conc 33.6 g/dl (31.0-35.0); Mean Corpuscular Hemoglobin 30.7 pg (27.0-33.0); Mean Corpuscular Volume 91.4 fL (80.0-98.0); Mean Platelet Volume 10.2 fL (9.4-12.3); Monocytes Absolute Auto 0.6 X10*3/uL (0.1-1.2); Monocytes Percent Auto 6.7 % (2-11); Neutrophils Absolute Auto 6.4 x10*3/uL (2.0-8.3); Neutrophils Percent Auto 67.8 % (45-73); Platelet Count 260 X10*3/uL (160-400); Red Blood Count 4.53 X10*6/uL (4.20-5.50); Red Cell Distribution Width 12.7 % (11.0-16.0); White Blood Count 9.4 X10*3/uL (4.8-10.8)
[2022-09-15 23:48] LABS: COVID-19 Test Negative (Negative)
[2022-09-15 23:52] LABS: Amphetamine Screen Urine Not Detected (Not Detect); Barbiturates, Urine Not Detected (Not Detect); Benzodiazepines Screen Urine Not Detected (Not Detect); Cannabinoid Screen Urine Not Detected (Not Detect); Cocaine Screen Urine POSITIVE (Not Detect); Fentanyl, urine Not Detected (Not Detect); Opiate Screen Urine Not Detected (Not Detect); Phencyclidine Screen Urine Not Detected (Not Detect)
[2022-09-15 23:54] LABS: Alanine Aminotransferase 14 U/L (0-31); Albumin Level 4.9 g/dL (3.5-5.0); Alkaline Phosphatase 90 U/L (39-117); Anion Gap 16 (12-20); Aspartate Amino Transferase 17 U/L (5-31); Bilirubin Total 0.4 mg/dL (0.0-1.0); Blood Urea Nitrogen 12 mg/dL (9-16); Calcium 10.3 mg/dL (8.4-10.2); Carbon Dioxide 26 mmol/L (22-29); Chloride 104 mmol/L (96-108); Creatinine Clr Calc Pharmacy 100.2; Estimated Glomerular Filt Rate > 60; Ethanol < 10 mg/dL; Glucose Random 101 mg/dL (60-115); Potassium 3.8 mmol/L (3.3-5.1); Sodium 142 mmol/L (135-145); Total Protein 7.7 g/dL (6.5-8.0)
[2022-09-15] MEDS: Nitrofurantoin Monohyd/M-Cryst 100 MG CAPSULE PO (23:57)
--- NOTE | 2022-09-16 00:10 | PC.NURSE ---
Smart sheet submitted
[2022-09-16 00:21] LABS: Acetaminophen LAB < 1 mcg/mL (<30); Salicylate < 5.0 mg/dL (15-30)
--- NOTE | 2022-09-16 03:30 | PC.NURSE ---
Pt sleeping. Breaths are even and unlabored with equal chest rises. No apparent distress noted. Will continue to monitor.
--- NOTE | 2022-09-16 03:59 | PC.NURSE ---
Med req completed.
--- NOTE | 2022-09-16 06:21 | PC.NURSE ---
Pt sleeping in no apparent distress. Breaths are even and unlabored. Will continue to monitor.
[2022-09-16 08:00] VITALS: RESP 16
[2022-09-16] MEDS: Nitrofurantoin Monohyd/M-Cryst 100 MG CAPSULE PO (09:06)
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
--- NOTE | 2022-09-16 13:24 | PC.NURSE ---
When D/c status was brought up: Per pt: i'm going to leave here and jump off the [place] bridge. They do this all the time. I want to go inpatient.
--- NOTE | 2022-09-16 13:27 | PC.NURSE ---
care team notified.
--- NOTE | 2022-09-16 13:40 | PC.NURSE ---
notified of statements and Care team being aware. Ok to proceed w/ dc
== END 2022-09-16 14:08 | disposition home or self-care (01) ==
PROVIDERS: Physician Assistant; Emergency Provider Emergency Medicine Emergency Medical Services
DX: R45.851 Suicidal ideations (principal); F41.9 Anxiety disorder, unspecified; F31.9 Bipolar disorder, unspecified; N39.0 Urinary tract infection, site not specified; Z20.822 Contact with and (suspected) exposure to COVID-19; F60.3 Borderline personality disorder; F14.10 Cocaine abuse, uncomplicated; F17.210 Nicotine dependence, cigarettes, uncomplicated; Z79.899 Other long term (current) drug therapy
CPT/HCPCS: 36415; 80053; 80143; 80179; 80307; 81001; 82077; 83735; 85025; 87086; 87635; 99285

== ENCOUNTER 2022-09-23 03:37 | Emergency (ER) | payer MEDICAID, SELFPAY ==
[2022-09-23 03:42] VITALS: BMI 32.3
--- NOTE | 2022-09-23 03:56 | ED_ITS ---
HPI - Psych General Chief Complaint: Psychiatric Symptoms Stated Complaint: si Time Seen by Provider: 09/23/22 03:49 Source: patient Mode of arrival: wheelchair Limitations: no limitations History of Present Illness HPI Narrative: Patient history of cocaine abuse, borderline personality disorder, PTSD, depression been here multiple times for depression suicidal ideation comes here with same feeling would like to [place] patient was here with similar thoughts last time and seen with LASHONDA reyes. Patient used cocaine 2 days ago Related Data Home Medications Medication Instructions Recorded Confirmed capsaicin 0.025 % topical cream 1 appl topical QID PRN pain 07/02/22 09/23/22 benztropine 1 mg tablet 1 tab PO BID 07/23/22 09/23/22 cholecalciferol (vitamin D3) 25 1 tab PO DAILY 07/23/22 09/23/22 mcg (1,000 unit) tablet omeprazole 20 mg capsule,delayed 1 cap PO DAILY@0630 07/23/22 09/23/22 release oxcarbazepine 150 mg tablet 1 tab PO BID 07/23/22 09/23/22 sertraline 50 mg tablet 50 mg PO DAILY 07/23/22 09/23/22 trazodone 100 mg tablet 2 tab PO BEDTIME 07/23/22 09/23/22 valacyclovir 1 gram tablet 1 tab PO BID 07/23/22 09/23/22 lithium carbonate 600 mg capsule 1 cap PO BID 07/24/22 09/23/22 cyanocobalamin (vitamin B-12) 100 1 tab PO DAILY 08/06/22 09/23/22 mcg tablet nitroglycerin 0.4 mg sublingual 0.4 mg sublingual Q5M PRN Chest 08/06/22 09/23/22 tablet Pain olanzapine 10 mg tablet 1 tab PO BEDTIME 08/06/22 09/23/22 bupropion HCl 150 mg 24 hr tablet, 150 mg PO QAM 09/23/22 09/23/22 extended release clonidine HCl 0.1 mg tablet 0.2 mg PO BEDTIME 09/23/22 09/23/22 gabapentin 300 mg capsule 600 mg PO TID 09/23/22 09/23/22 lithium carbonate 300 mg capsule 300 mg PO BID 09/23/22 09/23/22 nitrofurantoin 100 mg capsule 100 mg PO Q12H 09/23/22 09/23/22 ropinirole 0.5 mg tablet 0.5 mg PO BEDTIME 09/23/22 09/23/22 tiotropium bromide 18 mcg capsule 1 cap inhalation DAILY 09/23/22 09/23/22 with inhalation device (Spiriva with HandiHaler) Previous Rx's Medication Instructions Recorded albuterol sulfate 90 mcg/actuation 2 puff inhalation Q4-6H PRN 04/20/22 aerosol inhaler shortness of breath or wheezing 30 days #1 inhaler ferrous sulfate 324 mg (65 mg 324 mg PO DAILY 30 days #30 tabs 05/18/22 iron) tablet,delayed release nicotine 21 mg/24 hr daily 21 mg transdermal DAILY #30 ea 06/07/22 transdermal patch Allergies Allergy/AdvReac Type Severity Reaction Status Date / Time aspirin [Aspirin] Allergy Severe HIVES,THROAT Verified 09/07/22 22:13 SWELLS bee pollen [BEE STINGS] Allergy Severe ANAPHYLAXIS Verified 09/07/22 22:13 diphenhydramine Allergy Severe hives, Verified 09/07/22 22:13 [From BENADRYL ALLERGY] throat swells Penicillins [PCN] Allergy Severe HIVES Verified 09/07/22 22:13 THROAT SWELLS Sulfa (Sulfonamide Allergy Intermediate HIVES Verified 09/07/22 22:13 Antibiotics) [SULFA (SULFONAMIDE ANTIBIOTICS)] tramadol [TRAMADOL] Allergy Intermediate ITCHING Verified 09/07/22 22:13 latex [LATEX] Allergy Unknown UNKNOWN Verified 09/07/22 22:13 penicillin G Allergy Unknown Unknown Verified 09/07/22 22:13 levofloxacin [From Levaquin] Allergy Hives Verified 09/07/22 22:13 hydroxyzine AdvReac Severe restless Verified 09/07/22 22:13 legs seafood AdvReac Stomach Verified 09/03/22 20:12 Upset Review of Systems Review of Systems: Yes all other systems are reviewed and are negative PMFSH Past Medical History Medical History Asthma exacerbation in COPD Asthma-COPD overlap syndrome Bipolar disorder Bipolar I disorder Borderline personality disorder COPD (chronic obstructive pulmonary disease) Depression Drug abuse Herpes Intermittent explosive disorder Mass of parotid gland FABIOLA (obstructive sleep apnea) Post traumatic stress disorder (PTSD) Pseudoseizures Tobacco use Surgical History History of ankle surgery History of appendectomy History of back surgery Hx of cholecystectomy Family History Family History Mother COPD (chronic obstructive pulmonary disease) Social History Social History Household Members: None Household Members Other:: Intermediate in [place] Housing: Homeless Housing Other:: Sleeps on the couch at [facility] house Do you presently have visiting nurse or other home services: No Unable to assess alcohol history related to: Unknown Alcohol intake: unknown Patient Tobacco Use Status: Current everyday Tobacco user Tobacco use type: Cigarette Cigarette Packs Per Day: 3 Cigarettes Per Day: 2 Years Smoked: 34 e-Cigarette/Vaping Use: Former Use Second Hand Smoke Exposure: Yes Substance Use Type: Crack/Cocaine Advance Directives: Yes Advance Directives on File: Yes Advance Directives Date on File: 06/17/22 service: No Current occupational status: unemployed and disabled Sexual orientation: Straight/Heterosexual Physical Exam Vital Signs: Vital Signs: Last Vital Signs Temp 97.8 F 09/23/22 04:23 Pulse 80 09/23/22 04:23 Resp 18 09/23/22 04:23 BP 127/69 09/23/22 04:23 Pulse Ox 94 09/23/22 04:23 O2 Del Method 09/23/22 04:23 BMI result Body Mass Index 32.3 Appearance: Alert. Oriented X3. No acute distress. Eyes: PERRLA, No Nystagmus ENT: Pharynx normal. Oral Mucosa moist Neck: Normal inspection. Neck supple. CVS: Normal heart rate and rhythm. Pulses normal. Respiratory: No respiratory distress. Equal air entry bilateral, no wheezing/rales/rhonchi Abdomen: Soft and nontender. Bowel sounds are present, no mass palpable, no CVA tenderness Skin: Skin warm and dry. Normal skin color. Normal skin turgor. Extremities: No lower extremity edema. No calf tenderness psych: [place] depressed with specific plan to jump from the bridge, no villatoro llucinations no delusions Neuro: Oriented X 3. No motor deficit. No sensory deficit.No cerebellar signs , cranial nerves II-XII intact MDM - Psych MDM Narrative Medical decision making narrative: Patient with frequent ED visits for depression and suicidal ideation lab workup showed chronic bacterial colonization of the urine previous cultures were negative patient is symptomatic will not treat her with antibiotics. Patient will be seen by [facility] and disposition will be made after that Lab Data Attestation: I reviewed the patient's lab results. Result diagrams: 09/23/22 05:15 Labs: Lab Results 09/23/22 09/23/22 09/23/22 Range/Units 05:15 05:15 05:15 Sodium 138 (135-145) mmol/L Potassium 4.4 (3.3-5.1) mmol/L Chloride 102 (96-108) mmol/L Carbon Dioxide 27 (22-29) mmol/L Anion Gap 13 (12-20) BUN 9 (9-16) mg/dL Creatinine 0.68 (0.5-1.4) mg/dL Estim Creat Clear Calc 111.0 Estimated GFR > 60 Random Glucose 100 (60-115) mg/dL Calcium 9.4 D (8.4-10.2) mg/dL Total Bilirubin 0.3 (0.0-1.0) mg/dL AST 23 (5-31) U/L ALT 34 H (0-31) U/L Alkaline Phosphatase 75 (39-117) U/L Total Protein 6.4 L (6.5-8.0) g/dL Albumin 4.0 (3.5-5.0) g/dL Urine Color Urine Appearance Urine pH (5.0-9.0) Ur Specific [place] (1.005-1.025) Urine Protein (Neg-Trace) mg/dL Urine Glucose (UA) (Negative) mg/dL Urine Ketones (Negative) mg/dL Urine Blood (Negative) Urine Nitrite (Negative) Ur Leukocyte Esterase (Negative) Urine RBC (0-2) /HPF Urine WBC (0-5) /HPF Ur Squamous Epith Cells (0-2) /HPF Urine Bacteria (None Seen) Hyaline Casts (0-2) /LPF Urine Opiates Screen (Not Detect) Urine Fentanyl Screen (Not Detect) Ur Barbiturates Screen (Not Detect) Ur Phencyclidine Scrn (Not Detect) Ur Amphetamines Screen (Not Detect) U Benzodiazepines Scrn (Not Detect) [place] 0.77 (0.60-1.20) mmol/L Urine Cocaine Screen (Not Detect) U Marijuana (THC) Screen (Not Detect) Ethyl Alcohol < 10 mg/dL COVID-19 (ENDY) Negative (Negative) COVID-19 Clin Com See Note 09/23/22 09/23/22 Range/Units 05:15 05:15 Sodium (135-145) mmol/L Potassium (3.3-5.1) mmol/L Chloride (96-108) mmol/L Carbon Dioxide (22-29) mmol/L Anion Gap (12-20) BUN (9-16) mg/dL Creatinine (0.5-1.4) mg/dL Estim Creat Clear Calc Estimated GFR Random Glucose (60-115) mg/dL Calcium (8.4-10.2) mg/dL Total Bilirubin (0.0-1.0) mg/dL AST (5-31) U/L ALT (0-31) U/L Alkaline Phosphatase (39-117) U/L Total Protein (6.5-8.0) g/dL Albumin (3.5-5.0) g/dL Urine Color Yellow Urine Appearance Clear Urine pH 7.5 (5.0-9.0) Ur Specific [place] 1.015 (1.005-1.025) Urine Protein Negative (Neg-Trace) mg/dL Urine Glucose (UA) Negative (Negative) mg/dL Urine Ketones Negative (Negative) mg/dL Urine Blood Negative (Negative) Urine Nitrite Negative (Negative) Ur Leukocyte Esterase Large (3+) H (Negative) Urine RBC 0-2 (0-2) /HPF Urine WBC 11-20 H (0-5) /HPF Ur Squamous Epith Cells 3-5 (0-2) /HPF Urine Bacteria 1+ (None Seen) Hyaline Casts 0-2 (0-2) /LPF Urine Opiates Screen Not Detected (Not Detect) Urine Fentanyl Screen Not Detected (Not Detect) Ur Barbiturates Screen Not Detected (Not Detect) Ur Phencyclidine Scrn Not Detected (Not Detect) Ur Amphetamines Screen Not Detected (Not Detect) U Benzodiazepines Scrn Not Detected (Not Detect) [place] (0.60-1.20) mmol/L Urine Cocaine Screen POSITIVE H (Not Detect) U Marijuana (THC) Screen Not Detected (Not Detect) Ethyl Alcohol mg/dL COVID-19 (ENDY) (Negative) COVID-19 Clin Com Discharge Plan Discharge Clinical Impression: Depression, Suicidal ideation, Cocaine use disorder Patient Disposition: Still a Patient Prescriptions: No Action albuterol sulfate 90 mcg/actuation HFA aerosol inhaler 2 puff inhalation Q4-6H PRN (Reason: shortness of breath or wheezing) 30 Days Qty: 1 0RF ferrous sulfate 324 mg (65 mg iron) tablet,delayed release (DR/EC) 324 mg PO DAILY 30 Days Qty: 30 0RF capsaicin 0.025 % cream 1 appl topical QID PRN (Reason: pain) oxcarbazepine 150 mg tablet 1 tab PO BID valacyclovir 1 gram tablet 1 tab PO BID trazodone 100 mg tablet 2 tab PO BEDTIME benztropine 1 mg tablet 1 tab PO BID omeprazole 20 mg capsule,delayed release(DR/EC) 1 cap PO DAILY@0630 sertraline 50 mg tablet 50 mg PO DAILY cholecalciferol (vitamin D3) 25 mcg (1,000 unit) tablet 1 tab PO DAILY lithium carbonate 600 mg capsule 1 cap PO BID nitroglycerin 0.4 mg tablet, sublingual 0.4 mg sublingual Q5M PRN (Reason: Chest Pain) cyanocobalamin (vitamin B-12) 100 mcg tablet 1 tab PO DAILY olanzapine 10 mg tablet 1 tab PO BEDTIME Spiriva with HandiHaler 18 mcg capsule, w/inhalation device 1 cap inhalation DAILY gabapentin 300 mg Capsule 600 mg PO TID ropinirole 0.5 mg Tablet 0.5 mg PO BEDTIME Rx Instructions: administer 1-3 hours before bedtime nitrofurantoin 100 mg Capsule 100 mg PO Q12H Rx Instructions: must administer with a meal/food clonidine HCl 0.1 mg Tablet 0.2 mg PO BEDTIME bupropion HCl 150 mg Tablet Extended Release 24 Hr 150 mg PO QAM lithium carbonate 300 mg Capsule 300 mg PO BID nicotine 21 mg/24 hr Patch 24 Hour 21 mg transdermal DAILY Qty: 30 0RF Interventions: [place]-Suicide Risk Severity Scale Last Done: 09/23/22 06:11
[2022-09-23 04:23] VITALS: BP 127/69; PULSE 80; RESP 18; TEMP 36.6; O2SAT 94
[2022-09-23 05:31] LABS: Lithium 0.77 mmol/L (0.60-1.20)
[2022-09-23 05:34] LABS: COVID-19 Test Negative (Negative)
[2022-09-23 05:36] LABS: Amphetamine Screen Urine Not Detected (Not Detect); Barbiturates, Urine Not Detected (Not Detect); Benzodiazepines Screen Urine Not Detected (Not Detect); Cannabinoid Screen Urine Not Detected (Not Detect); Cocaine Screen Urine POSITIVE (Not Detect); Fentanyl, urine Not Detected (Not Detect); Opiate Screen Urine Not Detected (Not Detect); Phencyclidine Screen Urine Not Detected (Not Detect)
[2022-09-23 05:42] LABS: Alanine Aminotransferase 34 U/L (0-31); Alkaline Phosphatase 75 U/L (39-117); Anion Gap 13 (12-20); Aspartate Amino Transferase 23 U/L (5-31); Bilirubin Total 0.3 mg/dL (0.0-1.0); Blood Urea Nitrogen 9 mg/dL (9-16); Calcium 9.4 mg/dL (8.4-10.2); Carbon Dioxide 27 mmol/L (22-29); Chloride 102 mmol/L (96-108); Estimated Glomerular Filt Rate > 60; Ethanol < 10 mg/dL; Glucose Random 100 mg/dL (60-115); Potassium 4.4 mmol/L (3.3-5.1); Sodium 138 mmol/L (135-145); Total Protein 6.4 g/dL (6.5-8.0)
--- NOTE | 2022-09-23 06:17 | PC.NURSE ---
Patient is currently in bed appears sleeping, no distress observed/reported, behavior non concerning, pending partial lab draws due to tough stick, [facility] referral completed/confirmed/pending ETA, med rec completed/pending provider's approval, will continue to monitor.
[2022-09-23 06:35] LABS: Appearance Urine Clear; Color Urine Yellow; Glucose Urine UA Negative (Negative); Leukocyte Esterase Urine Large (3+) (Negative); Nitrite Urine Negative (Negative); PH 7.5 (5.0-9.0); Specific Gravity - Urine 1.015 (1.005-1.025); UMIC TRIGGER UA YES; Urine Blood Negative (Negative); Urine Ketones Negative (Negative); Urine Protein Negative (Neg-Trace)
[2022-09-23 06:40] LABS: Bacteria Urine 1+ (None Seen); Hyaline Casts Urine 0-2 /LPF (0-2); RBC Urine 0-2 /HPF (0-2)
--- NOTE | 2022-09-23 07:51 | PC.NURSE ---
Addendum entered by Deirdre Miller 09/23/22 08:01: Cleared by [facility]; Plan to d/c by mid day to [facility]. Care team aware. Original Note: Report taken from overnight. No acute incidents. [facility] at bedside at this time.
[2022-09-23 07:56] LABS: MANUAL DIFF FLAG NO
[2022-09-23 07:59] LABS: Basophils Absolute Auto 0.1 X10*3/uL (0.0-0.2); Eosinophils Absolute Auto 0.1 X10*3/uL (0.0-0.4); Eosinophils Percent Auto 1.3 % (0-4); Hematocrit 37.1 % (37.0-47.0); Hemoglobin 12.1 g/dl (12.0-16.0); Imm Gran Abs Auto 0.05 X10*3/uL (0.00-0.03); Imm Gran Pct Auto 0.5 % (0.0-0.4); Lymphocytes Absolute Auto 2.1 X10*3/uL (1.2-4.9); Lymphocytes Percent Auto 22.4 % (20-40); Mean Corpuscular HGB Conc 32.6 g/dl (31.0-35.0); Mean Corpuscular Hemoglobin 30.3 pg (27.0-33.0); Mean Corpuscular Volume 92.8 fL (80.0-98.0); Mean Platelet Volume 9.9 fL (9.4-12.3); Monocytes Absolute Auto 0.7 X10*3/uL (0.1-1.2); Monocytes Percent Auto 7.8 % (2-11); Neutrophils Absolute Auto 6.2 x10*3/uL (2.0-8.3); Platelet Count 253 X10*3/uL (160-400); Red Cell Distribution Width 12.7 % (11.0-16.0); White Blood Count 9.3 X10*3/uL (4.8-10.8)
[2022-09-23] MEDS: Nitrofurantoin Monohyd/M-Cryst 100 MG CAPSULE PO (08:44)
[2022-09-23] MEDS: Cholecalciferol (Vitamin D3) 25 MCG TABLET PO (09:03)
[2022-09-23] MEDS: Gabapentin 300 MG CAPSULE 600 MG PO (09:03)
[2022-09-23] MEDS: valACYclovir HCL 1,000 MG TABLET 1000 MG PO (09:03)
[2022-09-23] MEDS: Lithium Carbonate 300 MG CAPSULE PO (09:04)
[2022-09-23] MEDS: Ferrous Sulfate 324 MG TABLET.DR PO (09:04)
[2022-09-23] MEDS: Benztropine Mesylate 1 MG TABLET PO (09:04)
[2022-09-23] MEDS: OXcarbazepine 150 MG TABLET PO (09:06)
[2022-09-23] MEDS: Sertraline HCL 50 MG TABLET PO (09:06)
[2022-09-23] MEDS: Lithium Carbonate 300 MG CAPSULE 600 MG PO (09:06)
[2022-09-23] MEDS: Cyanocobalamin (Vitamin B-12) 100 MCG TABLET PO (09:06)
[2022-09-23] MEDS: buPROPion HCl XL 150 MG TAB.ER.24H PO (09:06)
== END 2022-09-23 11:35 | disposition home or self-care (01) ==
PROVIDERS: Emergency Provider Internal Medicine
DX: F31.9 Bipolar disorder, unspecified (principal); R45.851 Suicidal ideations; F14.10 Cocaine abuse, uncomplicated; Z20.822 Contact with and (suspected) exposure to COVID-19; F60.3 Borderline personality disorder; F43.10 Post-traumatic stress disorder, unspecified; F17.210 Nicotine dependence, cigarettes, uncomplicated; Z79.899 Other long term (current) drug therapy
CPT/HCPCS: 36415; 80053; 80178; 80307; 81001; 82077; 85025; 87635; 99284; 99285

== ENCOUNTER 2022-09-23 19:12 | Emergency (ER) | payer MEDICAID, SELFPAY ==
[2022-09-23 19:21] VITALS: BP 132/85; PULSE 89; RESP 18; TEMP 36.4; O2SAT 97; BMI 32.3
[2022-09-23 20:00] LABS: Appearance Urine Turbid; Color Urine Dark Yellow; Glucose Urine UA Negative (Negative); Leukocyte Esterase Urine Large (3+) (Negative); Nitrite Urine Negative (Negative); Specific Gravity - Urine 1.025 (1.005-1.025); UMIC TRIGGER UA YES; Urine Blood Negative (Negative); Urine Ketones Trace mg/dL (Negative); Urine Protein 30 (1+) mg/dL (Neg-Trace)
--- NOTE | 2022-09-23 20:03 | ED_ITS ---
HPI - Psych General Chief Complaint: Psychiatric Symptoms <eJnnifer BellCHIKI - Last Filed: 09/23/22 20:32> Stated Complaint: crisis <Jennifer BellCHIKI - Last Filed: 09/23/22 20:32> Time Seen by Provider: 09/23/22 19:19 <Jennifer Page CHIKI Bell - Last Filed: 09/23/22 20:32> Source: patient <Jennifer BellCHIKI - Last Filed: 09/23/22 20:32> Mode of arrival: EMS <Jennifer DillonCHIKI ryan - Last Filed: 09/23/22 20:32> Limitations: no limitations <Jennifer DillonCHIKI ryan - Last Filed: 09/23/22 20:32> History of Present Illness HPI Narrative: Patient is a 52-year-old female who presents to the emergency department for suicidal ideations. Reporting a plan to jump off of a bridge. She is also endorsing auditory hallucinations as well, denies visual hallucinations. She was seen in the emergency department earlier today also with suicidal ideations and the same plan, was discharged after evaluation from crisis <Jennifer DillonCHIKI ryan - Last Filed: 09/23/22 20:32> Related Data Home Medications: Home Medications Medication Instructions Recorded Confirmed capsaicin 0.025 % topical cream 1 appl topical QID PRN pain 07/02/22 09/23/22 benztropine 1 mg tablet 1 tab PO BID 07/23/22 09/23/22 cholecalciferol (vitamin D3) 25 1 tab PO DAILY 07/23/22 09/23/22 mcg (1,000 unit) tablet omeprazole 20 mg capsule,delayed 1 cap PO DAILY@0630 07/23/22 09/23/22 release oxcarbazepine 150 mg tablet 1 tab PO BID 07/23/22 09/23/22 sertraline 50 mg tablet 50 mg PO DAILY 07/23/22 09/23/22 trazodone 100 mg tablet 2 tab PO BEDTIME 07/23/22 09/23/22 valacyclovir 1 gram tablet 1 tab PO BID 07/23/22 09/23/22 lithium carbonate 600 mg capsule 1 cap PO BID 07/24/22 09/23/22 cyanocobalamin (vitamin B-12) 100 1 tab PO DAILY 08/06/22 09/23/22 mcg tablet nitroglycerin 0.4 mg sublingual 0.4 mg sublingual Q5M PRN Chest 08/06/22 09/23/22 tablet Pain olanzapine 10 mg tablet 1 tab PO BEDTIME 08/06/22 09/23/22 bupropion HCl 150 mg 24 hr tablet, 150 mg PO QAM 09/23/22 09/23/22 extended release clonidine HCl 0.1 mg tablet 0.2 mg PO BEDTIME 09/23/22 09/23/22 gabapentin 400 mg capsule 1 cap PO TID 09/23/22 09/23/22 lithium carbonate 300 mg capsule 300 mg PO BID 09/23/22 09/23/22 nitrofurantoin 100 mg capsule 100 mg PO Q12H 09/23/22 09/23/22 ropinirole 0.5 mg tablet 0.5 mg PO BEDTIME 09/23/22 09/23/22 tiotropium bromide 18 mcg capsule 1 cap inhalation DAILY 09/23/22 09/23/22 with inhalation device (Spiriva with HandiHaler) Previous Rx's Medication Instructions Recorded albuterol sulfate 90 mcg/actuation 2 puff inhalation Q4-6H PRN 04/20/22 aerosol inhaler shortness of breath or wheezing 30 days #1 inhaler ferrous sulfate 324 mg (65 mg 324 mg PO DAILY 30 days #30 tabs 05/18/22 iron) tablet,delayed release nicotine 21 mg/24 hr daily 21 mg transdermal DAILY #30 ea 06/07/22 transdermal patch <Jennifer Bell, CHIKI - Last Filed: 09/23/22 20:32> Allergies/Adverse Reactions: Allergies Allergy/AdvReac Type Severity Reaction Status Date / Time aspirin [Aspirin] Allergy Severe HIVES,THROAT Verified 09/07/22 22:13 SWELLS bee pollen [BEE STINGS] Allergy Severe ANAPHYLAXIS Verified 09/07/22 22:13 diphenhydramine Allergy Severe hives, Verified 09/07/22 22:13 [From BENADRYL ALLERGY] throat swells Penicillins [PCN] Allergy Severe HIVES Verified 09/07/22 22:13 THROAT SWELLS Sulfa (Sulfonamide Allergy Intermediate HIVES Verified 09/07/22 22:13 Antibiotics) [SULFA (SULFONAMIDE ANTIBIOTICS)] tramadol [TRAMADOL] Allergy Intermediate ITCHING Verified 09/07/22 22:13 latex [LATEX] Allergy Unknown UNKNOWN Verified 09/07/22 22:13 penicillin G Allergy Unknown Unknown Verified 09/07/22 22:13 levofloxacin [From Levaquin] Allergy Hives Verified 09/07/22 22:13 hydroxyzine AdvReac Severe restless Verified 09/07/22 22:13 legs seafood AdvReac Stomach Verified 09/03/22 20:12 Upset <Jennifer Bell CNP - Last Filed: 09/23/22 20:32> Review of Systems Review of Systems: Constitutional : No Fever, No Chills ENT/Mouth : No Ear Pain, No Nasal Congestion, No sore throat Eyes: No Eye Pain, No Swelling, No Redness Cardiovascular : No Chest Pain, No SOB Respiratory : No Cough, No Sputum, No Dyspnea Gastrointestinal : No Nausea, No Vomiting, No Diarrhea, No Hematochezia, No Melena Genitourinary : No Dysuria, No Urinary Frequency, No Hematuria Musculoskeletal : No Myalgias Skin : No Skin Lesions, No rash Neuro : No Weakness, No Numbness, No Paresthesias, No Dizziness, No Headache Psych : positive Anxiety, positive Depression, positive SI, no HI, positive hallucinations Heme/Lymph: No Lymphadenopathy Endocrine : No Polyuria, No Polydipsia <Jennifer Bell CNP - Last Filed: 09/23/22 20:32> Yes all other systems are reviewed and are negative <Jennifer Bell CNP - Last Filed: 09/23/22 20:32> PMFSH Past Medical History Attestation statement: The following information was validated with the patient. <Jennifer Bell CNP - Last Filed: 09/23/22 20:32> Source: old records reviewed <Jennifer Bell CNP - Last Filed: 09/23/22 20:32> Medical History: Medical History Asthma exacerbation in COPD Asthma-COPD overlap syndrome Bipolar disorder Bipolar I disorder Borderline personality disorder COPD (chronic obstructive pulmonary disease) Depression Drug abuse Herpes Intermittent explosive disorder Mass of parotid gland FABIOLA (obstructive sleep apnea) Post traumatic stress disorder (PTSD) Pseudoseizures Tobacco use <Jennifer Bell CNP - Last Filed: 09/23/22 20:32> Surgical History: Surgical History History of ankle surgery History of appendectomy History of back surgery Hx of cholecystectomy <Jennifer Bell CNP - Last Filed: 09/23/22 20:32> Family History Family History: Family History Mother COPD (chronic obstructive pulmonary disease) <Jennifer Bell CNP - Last Filed: 09/23/22 20:32> Social History Social History: Social History Household Members: None Household Members Other:: [place]-Way in [place] Housing: Homeless Housing Other:: Sleeps on the couch at [facility] house Do you presently have visiting nurse or other home services: No Unable to assess alcohol history related to: Unknown Alcohol intake: unknown Patient Tobacco Use Status: Current everyday Tobacco user Tobacco use type: Cigarette Cigarette Packs Per Day: 3 Cigarettes Per Day: 2 Years Smoked: 34 e-Cigarette/Vaping Use: Former Use Second Hand Smoke Exposure: Yes Substance Use Type: Crack/Cocaine Advance Directives: Yes Advance Directives on File: Yes Advance Directives Date on File: 06/17/22 service: No Current occupational status: unemployed and disabled Sexual orientation: Straight/Heterosexual <Jennifer Bell CNP - Last Filed: 09/23/22 20:32> Physical Exam Vital Signs: Vital Signs: Last Vital Signs Temp 98.2 F 09/24/22 06:59 Pulse 82 09/24/22 06:59 Resp 18 09/24/22 06:59 BP 119/54 L 09/24/22 06:59 Pulse Ox 92 09/24/22 06:59 O2 Del Method 09/24/22 06:59 BMI result Body Mass Index 32.3 <Jennifer Bell CNP - Last Filed: 09/23/22 20:32> Vital Signs: Last Vital Signs Temp 98.2 F 09/24/22 06:59 Pulse 82 09/24/22 06:59 Resp 18 09/24/22 06:59 BP 119/54 L 09/24/22 06:59 Pulse Ox 92 09/24/22 06:59 O2 Del Method 09/24/22 06:59 BMI result Body Mass Index 32.3 <LASHONDA Coppola - Last Filed: 09/23/22 20:44> Vital Signs: Last Vital Signs Temp 98.2 F 09/24/22 06:59 Pulse 82 09/24/22 06:59 Resp 18 09/24/22 06:59 BP 119/54 L 09/24/22 06:59 Pulse Ox 92 09/24/22 06:59 O2 Del Method 09/24/22 06:59 BMI result Body Mass Index 32.3 <Oswaldo Hollis MD - Last Filed: 09/24/22 10:57> Appearance: Alert.?Oriented to person, place and time. No acute distress.?Normal affect. Eyes: Pupils equal, round and reactive to light.? ENT: Pharynx normal.?? Neck: Normal inspection.? Neck supple.?? CVS: Heart sounds normal. Normal heart rate and rhythm.? Pulses normal.?? Respiratory: No respiratory distress.? Lung sounds clear to auscultation bilaterally?? Abdomen: Soft and non-tender. Normoactive bowel sounds. Skin: Skin warm and dry.? Normal skin color.? Extremities: No lower extremity edema.? Neuro: Moves all extremities spontaneously. Sensation intact bilaterally. CN II- XII intact. No focal neuro deficits. Ambulates with normal steady gait. <Jennifer Bell CNP - Last Filed: 09/23/22 20:32> Course Course Course Narrative: Patient is a 52-year-old female with a past medical history of asthma, COPD, bipolar disorder, borderline personality disorder, depression, drug abuse, past suicide attempts, pseudoseizures presenting to the emergency department for suicidal ideations and worsening depression. She does have a plan stating that she wants to jump off of a bridge. Was seen in the emergency department earlier today, had labs and a urine obtained at that time, no indication to repeat these currently. She does not feel safe at this time. She will be referred to [facility] to determine whether inpatient psychiatric services are required. Urinalysis with pyuria, patient appears to have chronic bacterial colonization with cultures in the past revealing a mixed bacterial blossom characteristic of urogenital contamination, she is asymptomatic at this time, and therefore will not treat as urinary tract infection, culture will be followed. Drug of abuse screen positive for cocaine. At this time, she will be placed in physician observation as she will require additional time to be evaluated. She is calm, cooperative, and in no apparent distress. <Jennifer Kayleefrancisca Bell CNP - Last Filed: 09/23/22 20:32> Patient is a 52-year-old female with a past medical history of asthma, COPD, bipolar disorder, borderline personality disorder, depression, drug abuse, past suicide attempts, pseudoseizures presenting to the emergency department for suicidal ideations and worsening depression. She does have a plan stating that she wants to jump off of a bridge. Was seen in the emergency department earlier today, had labs and a urine obtained at that time, no indication to repeat these currently. She does not feel safe at this time. She will be referred to [facility] to determine whether inpatient psychiatric services are required. Urinalysis with pyuria, patient appears to have chronic bacterial colonization with cultures in the past revealing a mixed bacterial blossom characteristic of urogenital contamination, she is asymptomatic at this time, and therefore will not treat as urinary tract infection, culture will be followed. Drug of abuse screen positive for cocaine. At this time, she will be placed in physician observation as she will require additional time to be evaluated. She is calm, cooperative, and in no apparent distress. 1056: End physician observation: Patient was evaluated by crisis, the patient is no longer suicidal, the patient is well-known to the emergency department. The patient will be discharged to home. <Oswaldo Hollis MD - Last Filed: 09/24/22 10:57> Reevaluation(s) Reevaluation #1: Patient will be a crisis re-evaluation in the morning. <LASHONDA Coppola - Last Filed: 09/23/22 20:44> Time: 20:44 <LASHONDA Coppola - Last Filed: 09/23/22 20:44> Medications Administered Generic Name Dose Route Start Last Admin Trade Name Freq PRN Reason Stop Dose Admin Benztropine Mesylate 1 mg 09/23/22 21:00 09/24/22 08:12 Benztropine Mesylate 1 Mg Tablet PO 1 mg BID TEJA Administration Bupropion HCl 150 mg 09/23/22 20:30 09/24/22 08:12 Bupropion Hcl Xl 150 Mg Tab.Er.24h PO 150 mg DAILY TEJA Administration Clonidine HCl 0.2 mg 09/23/22 21:00 09/23/22 21:03 Clonidine Hcl 0.2 Mg Tablet PO Not Given BEDTIME TEJA Protocol Cyanocobalamin 100 mcg 09/24/22 09:00 09/24/22 08:12 Cyanocobalamin (Vitamin B-12) 100 Mcg Tablet PO 100 mcg DAILY TEJA Administration Ferrous Sulfate 324 mg 09/24/22 09:00 09/24/22 08:12 Ferrous Sulfate 324 Mg Tablet. PO 324 mg DAILY TEJA Administration Gabapentin 400 mg 09/24/22 09:00 09/24/22 08:12 Gabapentin 400 Mg Capsule PO 400 mg TID TEJA Administration [place] Carbonate 300 mg 09/23/22 21:00 09/24/22 08:12 [place] Carbonate 300 Mg Capsule PO 300 mg BID TEJA Administration [place] Carbonate 600 mg 09/23/22 21:00 09/24/22 08:13 [place] Carbonate 300 Mg Capsule PO 600 mg BID TEJA Administration Nicotine 21 mg 09/24/22 09:00 09/24/22 08:13 Nicotine 21 Mg Patch.Td24 TRANSDERMA Not Given DAILY TEJA Olanzapine 10 mg 09/23/22 21:00 09/23/22 21:03 Olanzapine 10 Mg Tablet PO Not Given BEDTIME TEJA Omeprazole 20 mg 09/24/22 06:30 09/24/22 06:11 Omeprazole 20 Mg Capsule. PO 20 mg DAILY@0630 TEJA Administration Oxcarbazepine 150 mg 09/23/22 21:00 09/24/22 08:12 Oxcarbazepine 150 Mg Tablet PO 150 mg BID TEJA Administration Ropinirole HCl 0.5 mg 09/23/22 21:00 09/23/22 21:03 Ropinirole Hcl 0.5 Mg Tablet PO Not Given BEDTIME TEJA Sertraline HCl 50 mg 09/24/22 09:00 09/24/22 08:12 Sertraline Hcl 50 Mg Tablet PO 50 mg DAILY TEJA Administration Tiotropium [place] 1 puff 09/24/22 09:00 09/24/22 10:38 Tiotropium [place] 18 Mcg Cap.W.Dev INHALE Not Given DAILY TEJA Trazodone HCl 200 mg 09/23/22 21:00 09/23/22 21:04 Trazodone Hcl 100 Mg Tablet PO Not Given BEDTIME TEJA Valacyclovir HCl 1,000 mg 09/23/22 21:00 09/24/22 08:12 Valacyclovir Hcl 1,000 Mg Tablet PO 1,000 mg BID TEJA Administration Vitamin D 25 mcg 09/24/22 09:00 09/24/22 08:12 Cholecalciferol (Vitamin D3) 25 Mcg Tablet PO 25 mcg DAILY TEJA Administration Discontinued Medications Generic Name Dose Route Start Last Admin Trade Name Jacob PRN Reason Stop Dose Admin Gabapentin 600 mg 09/23/22 21:00 09/23/22 21:03 Gabapentin 300 Mg Capsule PO Not Given TID TEJA <Jennifer Bell, [employer] - Last Filed: 09/23/22 20:32> Medications Administered Generic Name Dose Route Start Last Admin Trade Name Jacob PRN Reason Stop Dose Admin Benztropine Mesylate 1 mg 09/23/22 21:00 09/24/22 08:12 Benztropine Mesylate 1 Mg Tablet PO 1 mg BID TEJA Administration Bupropion HCl 150 mg 09/23/22 20:30 09/24/22 08:12 Bupropion Hcl Xl 150 Mg Tab.Er.24h PO 150 mg DAILY TEJA Administration Clonidine HCl 0.2 mg 09/23/22 21:00 09/23/22 21:03 Clonidine Hcl 0.2 Mg Tablet PO Not Given BEDTIME [facility] Protocol Cyanocobalamin 100 mcg 09/24/22 09:00 09/24/22 08:12 Cyanocobalamin (Vitamin B-12) 100 Mcg Tablet PO 100 mcg DAILY TEJA Administration Ferrous Sulfate 324 mg 09/24/22 09:00 09/24/22 08:12 Ferrous Sulfate 324 Mg Tablet.Dr PO 324 mg DAILY TEJA Administration Gabapentin 400 mg 09/24/22 09:00 09/24/22 08:12 Gabapentin 400 Mg Capsule PO 400 mg TID TEJA Administration [place] Carbonate 300 mg 09/23/22 21:00 09/24/22 08:12 [place] Carbon[place] 300 Mg Capsule PO 300 mg BID TEJA Administration [place] Carbonate 600 mg 09/23/22 21:00 09/24/22 08:13 [place] Carbon[place] 300 Mg Capsule PO 600 mg BID TEJA Administration Nicotine 21 mg 09/24/22 09:00 09/24/22 08:13 Nicotine 21 Mg Patch.Td24 TRANSDERMA Not Given DAILY TEJA Olanzapine 10 mg 09/23/22 21:00 09/23/22 21:03 Olanzapine 10 Mg Tablet PO Not Given BEDTIME TEJA Omeprazole 20 mg 09/24/22 06:30 09/24/22 06:11 Omeprazole 20 Mg Capsule.Dr PO 20 mg DAILY@0630 TEJA Administration Oxcarbazepine 150 mg 09/23/22 21:00 09/24/22 08:12 Oxcarbazepine 150 Mg Tablet PO 150 mg BID TEJA Administration Ropinirole HCl 0.5 mg 09/23/22 21:00 09/23/22 21:03 Ropinirole Hcl 0.5 Mg Tablet PO Not Given BEDTIME TEJA Sertraline HCl 50 mg 09/24/22 09:00 09/24/22 08:12 Sertraline Hcl 50 Mg Tablet PO 50 mg DAILY TEJA Administration Tiotropium [place] 1 puff 09/24/22 09:00 09/24/22 10:38 Tiotropium [place] 18 Mcg Cap.W.Dev INHALE Not Given DAILY TEJA Trazodone HCl 200 mg 09/23/22 21:00 09/23/22 21:04 Trazodone Hcl 100 Mg Tablet PO Not Given BEDTIME TEJA Valacyclovir HCl 1,000 mg 09/23/22 21:00 09/24/22 08:12 Valacyclovir Hcl 1,000 Mg Tablet PO 1,000 mg BID TEJA Administration Vitamin D 25 mcg 09/24/22 09:00 09/24/22 08:12 Cholecalciferol (Vitamin D3) 25 Mcg Tablet PO 25 mcg DAILY TEJA Administration Discontinued Medications Generic Name Dose Route Start Last Admin Trade Name Freq PRN Reason Stop Dose Admin Gabapentin 600 mg 09/23/22 21:00 09/23/22 21:03 Gabapentin 300 Mg Capsule PO Not Given TID TEJA <LASHONDA Coppola - Last Filed: 09/23/22 20:44> Medications Administered Generic Name Dose Route Start Last Admin Trade Name Freq PRN Reason Stop Dose Admin Benztropine Mesylate 1 mg 09/23/22 21:00 09/24/22 08:12 Benztropine Mesylate 1 Mg Tablet PO 1 mg BID TEJA Administration Bupropion HCl 150 mg 09/23/22 20:30 09/24/22 08:12 Bupropion Hcl Xl 150 Mg Tab.Er.24h PO 150 mg DAILY TEJA Administration Clonidine HCl 0.2 mg 09/23/22 21:00 09/23/22 21:03 Clonidine Hcl 0.2 Mg Tablet PO Not Given BEDTIME TEJA Protocol Cyanocobalamin 100 mcg 09/24/22 09:00 09/24/22 08:12 Cyanocobalamin (Vitamin B-12) 100 Mcg Tablet PO 100 mcg DAILY TEJA Administration Ferrous Sulfate 324 mg 09/24/22 09:00 09/24/22 08:12 Ferrous Sulfate 324 Mg Tablet. PO 324 mg DAILY TEJA Administration Gabapentin 400 mg 09/24/22 09:00 09/24/22 08:12 Gabapentin 400 Mg Capsule PO 400 mg TID TEJA Administration [place] Carbonate 300 mg 09/23/22 21:00 09/24/22 08:12 [place] Carbon[place] 300 Mg Capsule PO 300 mg BID TEJA Administration [place] Carbonate 600 mg 09/23/22 21:00 09/24/22 08:13 [place] Carbon[place] 300 Mg Capsule PO 600 mg BID TEJA Administration Nicotine 21 mg 09/24/22 09:00 09/24/22 08:13 Nicotine 21 Mg Patch.Td24 TRANSDERMA Not Given DAILY TEJA Olanzapine 10 mg 09/23/22 21:00 09/23/22 21:03 Olanzapine 10 Mg Tablet PO Not Given BEDTIME TEJA Omeprazole 20 mg 09/24/22 06:30 09/24/22 06:11 Omeprazole 20 Mg Capsule. PO 20 mg DAILY@0630 TEJA Administration Oxcarbazepine 150 mg 09/23/22 21:00 09/24/22 08:12 Oxcarbazepine 150 Mg Tablet PO 150 mg BID TEJA Administration Ropinirole HCl 0.5 mg 09/23/22 21:00 09/23/22 21:03 Ropinirole Hcl 0.5 Mg Tablet PO Not Given BEDTIME TEJA Sertraline HCl 50 mg 09/24/22 09:00 09/24/22 08:12 Sertraline Hcl 50 Mg Tablet PO 50 mg DAILY TEJA Administration Tiotropium [place] 1 puff 09/24/22 09:00 09/24/22 10:38 Tiotropium [place] 18 Mcg Cap.W.Dev INHALE Not Given DAILY TEJA Trazodone HCl 200 mg 09/23/22 21:00 09/23/22 21:04 Trazodone Hcl 100 Mg Tablet PO Not Given BEDTIME TEJA Valacyclovir HCl 1,000 mg 09/23/22 21:00 09/24/22 08:12 Valacyclovir Hcl 1,000 Mg Tablet PO 1,000 mg BID TEJA Administration Vitamin D 25 mcg 09/24/22 09:00 09/24/22 08:12 Cholecalciferol (Vitamin D3) 25 Mcg Tablet PO 25 mcg DAILY TEJA Administration Discontinued Medications Generic Name Dose Route Start Last Admin Trade Name Jacob PRN Reason Stop Dose Admin Gabapentin 600 mg 09/23/22 21:00 09/23/22 21:03 Gabapentin 300 Mg Capsule PO Not Given TID TEJA <Oswaldo Hollis MD - Last Filed: 09/24/22 10:57> MDM - Psych Medical Records Attestation: I reviewed the patient's medical records. <Jennifer Bell CNP - Last Filed: 09/23/22 20:32> Lab Data Labs: Lab Results 09/23/22 09/23/22 09/23/22 Range/Units 19:49 19:49 19:49 Urine Color Dark Yellow Urine Appearance Turbid Urine pH 7.0 (5.0-9.0) Ur Specific [place] 1.025 (1.005-1.025) Urine Protein 30 (1+) H (Neg-Trace) mg/dL Urine Glucose (UA) Negative (Negative) mg/dL Urine Ketones Trace (Negative) mg/dL Urine Blood Negative (Negative) Urine Nitrite Negative (Negative) Ur Leukocyte Esterase Large (3+) H (Negative) Urine RBC 6-10 H (0-2) /HPF Urine WBC >50 H (0-5) /HPF Ur Squamous Epith Cells >20 (0-2) /HPF Urine Bacteria 4+ (None Seen) Hyaline Casts 3-5 (0-2) /LPF Urine Opiates Screen Not Detected (Not Detect) Urine Fentanyl Screen Not Detected (Not Detect) Ur Barbiturates Screen Not Detected (Not Detect) Ur Phencyclidine Scrn Not Detected (Not Detect) Ur Amphetamines Screen Not Detected (Not Detect) U Benzodiazepines Scrn Not Detected (Not Detect) Urine Cocaine Screen POSITIVE H (Not Detect) U Marijuana (THC) Screen Not Detected (Not Detect) COVID-19 (ENDY) Negative (Negative) COVID-19 Clin Com See Note <Jennifer Bell CNP - Last Filed: 09/23/22 20:32> Lab Results 09/23/22 09/23/22 09/23/22 Range/Units 19:49 19:49 19:49 Urine Color Dark Yellow Urine Appearance Turbid Urine pH 7.0 (5.0-9.0) Ur Specific [place] 1.025 (1.005-1.025) Urine Protein 30 (1+) H (Neg-Trace) mg/dL Urine Glucose (UA) Negative (Negative) mg/dL Urine Ketones Trace (Negative) mg/dL Urine Blood Negative (Negative) Urine Nitrite Negative (Negative) Ur Leukocyte Esterase Large (3+) H (Negative) Urine RBC 6-10 H (0-2) /HPF Urine WBC >50 H (0-5) /HPF Ur Squamous Epith Cells >20 (0-2) /HPF Urine Bacteria 4+ (None Seen) Hyaline Casts 3-5 (0-2) /LPF Urine Opiates Screen Not Detected (Not Detect) Urine Fentanyl Screen Not Detected (Not Detect) Ur Barbiturates Screen Not Detected (Not Detect) Ur Phencyclidine Scrn Not Detected (Not Detect) Ur Amphetamines Screen Not Detected (Not Detect) U Benzodiazepines Scrn Not Detected (Not Detect) Urine Cocaine Screen POSITIVE H (Not Detect) U Marijuana (THC) Screen Not Detected (Not Detect) COVID-19 (ENDY) Negative (Negative) COVID-19 Clin Com See Note <LASHONDA Coppola - Last Filed: 09/23/22 20:44> Lab Results 09/23/22 09/23/22 09/23/22 Range/Units 19:49 19:49 19:49 Urine Color Dark Yellow Urine Appearance Turbid Urine pH 7.0 (5.0-9.0) Ur Specific [place] 1.025 (1.005-1.025) Urine Protein 30 (1+) H (Neg-Trace) mg/dL Urine Glucose (UA) Negative (Negative) mg/dL Urine Ketones Trace (Negative) mg/dL Urine Blood Negative (Negative) Urine Nitrite Negative (Negative) Ur Leukocyte Esterase Large (3+) H (Negative) Urine RBC 6-10 H (0-2) /HPF Urine WBC >50 H (0-5) /HPF Ur Squamous Epith Cells >20 (0-2) /HPF Urine Bacteria 4+ (None Seen) Hyaline Casts 3-5 (0-2) /LPF Urine Opiates Screen Not Detected (Not Detect) Urine Fentanyl Screen Not Detected (Not Detect) Ur Barbiturates Screen Not Detected (Not Detect) Ur Phencyclidine Scrn Not Detected (Not Detect) Ur Amphetamines Screen Not Detected (Not Detect) U Benzodiazepines Scrn Not Detected (Not Detect) Urine Cocaine Screen POSITIVE H (Not Detect) U Marijuana (THC) Screen Not Detected (Not Detect) COVID-19 (ENDY) Negative (Negative) COVID-19 Clin Com See Note <Oswaldo Hollis MD - Last Filed: 09/24/22 10:57> Discharge Plan Discharge Clinical Impression: Suicidal ideation, Cocaine abuse <Jennifer Bell CNP - Last Filed: 09/23/22 20:32> Patient Disposition: Home, Self-Care <Jennifer Bell CNP - Last Filed: 09/23/22 20:32> Additional Instructions: Continue taking medications as prescribed by your providers. Follow-up with your doctor in 2 days. Please return to the emergency department if your symptoms get worse or if you develop any symptoms that are concerning to you. <Jennifer Bell CNP - Last Filed: 09/23/22 20:32> Prescriptions: No Action albuterol sulfate 90 mcg/actuation HFA aerosol inhaler 2 puff inhalation Q4-6H PRN (Reason: shortness of breath or wheezing) 30 Days Qty: 1 0RF ferrous sulfate 324 mg (65 mg iron) tablet,delayed release (DR/EC) 324 mg PO DAILY 30 Days Qty: 30 0RF capsaicin 0.025 % cream 1 appl topical QID PRN (Reason: pain) oxcarbazepine 150 mg tablet 1 tab PO BID valacyclovir 1 gram tablet 1 tab PO BID trazodone 100 mg tablet 2 tab PO BEDTIME benztropine 1 mg tablet 1 tab PO BID omeprazole 20 mg capsule,delayed release(DR/EC) 1 cap PO DAILY@0630 sertraline 50 mg tablet 50 mg PO DAILY cholecalciferol (vitamin D3) 25 mcg (1,000 unit) tablet 1 tab PO DAILY lithium carbonate 600 mg capsule 1 cap PO BID nitroglycerin 0.4 mg tablet, sublingual 0.4 mg sublingual Q5M PRN (Reason: Chest Pain) cyanocobalamin (vitamin B-12) 100 mcg tablet 1 tab PO DAILY olanzapine 10 mg tablet 1 tab PO BEDTIME Spiriva with HandiHaler 18 mcg capsule, w/inhalation device 1 cap inhalation DAILY ropinirole 0.5 mg Tablet 0.5 mg PO BEDTIME Rx Instructions: administer 1-3 hours before bedtime nitrofurantoin 100 mg Capsule 100 mg PO Q12H Rx Instructions: must administer with a meal/food clonidine HCl 0.1 mg Tablet 0.2 mg PO BEDTIME bupropion HCl 150 mg Tablet Extended Release 24 Hr 150 mg PO QAM lithium carbonate 300 mg Capsule 300 mg PO BID nicotine 21 mg/24 hr Patch 24 Hour 21 mg transdermal DAILY Qty: 30 0RF gabapentin 400 mg capsule 1 cap PO TID <Jennifer Bell, CHIKI - Last Filed: 09/23/22 20:32>
[2022-09-23 20:13] LABS: Bacteria Urine 4+ (None Seen); Squamous Epithelial Cell Urine >20 /HPF (0-2); WBC Urine >50 /HPF (0-5)
[2022-09-23 20:15] LABS: Amphetamine Screen Urine Not Detected (Not Detect); Barbiturates, Urine Not Detected (Not Detect); Benzodiazepines Screen Urine Not Detected (Not Detect); Cannabinoid Screen Urine Not Detected (Not Detect); Cocaine Screen Urine POSITIVE (Not Detect); Fentanyl, urine Not Detected (Not Detect); Opiate Screen Urine Not Detected (Not Detect); Phencyclidine Screen Urine Not Detected (Not Detect)
[2022-09-23 20:18] LABS: COVID-19 Test Negative (Negative)
--- NOTE | 2022-09-23 20:46 | MHC.CARE ---
Pt is a 52 year old female that met with the Care Team after presenting to [facility] ED with chief complaints of SI with plan to jump in front of a car or jump off a bridge. Pt stated she is hearing voices that don't match there voices and visual hallucinations of feet walking all over the place. Pt denied HI. Pt reported she has not been able to eat or sleep well. Pt stated she is homeless and does not have anywhere else to go. Disposition was discussed with Kamla GALLEGO. Pt will remain in the ED to be reassessed in the morning.
--- NOTE | 2022-09-24 05:40 | PC.NURSE ---
Patient slept through the night, no distress observed/reported, behavior non concerning, medication compliant, patient was assessed by care team, pending disposition, patient will be reassessed by care team in the morning, VSS, will continue to monitor.
[2022-09-24] MEDS: Omeprazole 20 MG CAPSULE.DR PO (06:11)
[2022-09-24 06:59] VITALS: BP 119/54; PULSE 82; RESP 18; TEMP 36.8; O2SAT 92
--- NOTE | 2022-09-24 07:08 | PC.NURSE ---
pt sleeping in bed at this time. resp even and unlabored. no obvious distress noted at this time. plan for care team follow up.
[2022-09-24] MEDS: Ferrous Sulfate 324 MG TABLET.DR PO (08:12)
[2022-09-24] MEDS: OXcarbazepine 150 MG TABLET PO (08:12)
[2022-09-24] MEDS: Cyanocobalamin (Vitamin B-12) 100 MCG TABLET PO (08:12)
[2022-09-24] MEDS: Gabapentin 400 MG CAPSULE PO (08:12)
[2022-09-24] MEDS: valACYclovir HCL 1,000 MG TABLET 1000 MG PO (08:12)
[2022-09-24] MEDS: buPROPion HCl XL 150 MG TAB.ER.24H PO (08:12)
[2022-09-24] MEDS: Cholecalciferol (Vitamin D3) 25 MCG TABLET PO (08:12)
[2022-09-24] MEDS: Sertraline HCL 50 MG TABLET PO (08:12)
[2022-09-24] MEDS: Lithium Carbonate 300 MG CAPSULE PO (08:12)
[2022-09-24] MEDS: Benztropine Mesylate 1 MG TABLET PO (08:12)
[2022-09-24] MEDS: Lithium Carbonate 300 MG CAPSULE 600 MG PO (08:13)
--- NOTE | 2022-09-24 10:52 | MHC.CARE ---
Pt is a 52 year old female who was seen by the Care Team after presenting to [facility] ED due to having SI with plan to jump off a bridge and endorsing auditory hallucinations. Pt reported feeling alright after staying in the pod overnight. Pt is at baseline and reported SI with no plan. Pt denied HI, AVH and stated feeling safe. Disposition discussed with Oswaldo Joel MD. Pt has an observed pattern of reporting SI and recanting when a place to stay secure.
== END 2022-09-24 13:23 | disposition home or self-care (01) ==
PROVIDERS: Emergency Provider Emergency Medicine
DX: R45.851 Suicidal ideations (principal); F14.10 Cocaine abuse, uncomplicated; R44.0 Auditory hallucinations; Z20.822 Contact with and (suspected) exposure to COVID-19; F31.9 Bipolar disorder, unspecified; F41.9 Anxiety disorder, unspecified; F43.10 Post-traumatic stress disorder, unspecified; F60.3 Borderline personality disorder; F17.210 Nicotine dependence, cigarettes, uncomplicated; Z79.899 Other long term (current) drug therapy
CPT/HCPCS: 80307; 81001; 81003; 87635; 99284

== ENCOUNTER 2022-09-25 01:51 | Emergency (ER) | payer MEDICAID, SELFPAY ==
[2022-09-25 02:09] VITALS: BP 137/76; PULSE 86; RESP 17; TEMP 36.4; O2SAT 96; BMI 37.9
[2022-09-25 02:43] LABS: Appearance Urine Cloudy; Color Urine Yellow; Glucose Urine UA Negative (Negative); Leukocyte Esterase Urine Large (3+) (Negative); Nitrite Urine Negative (Negative); PH 6.5 (5.0-9.0); UMIC TRIGGER UA YES; Urine Blood Negative (Negative); Urine Ketones Negative (Negative); Urine Protein Trace mg/dL (Neg-Trace)
[2022-09-25 02:52] LABS: Amphetamine Screen Urine Not Detected (Not Detect); Barbiturates, Urine Not Detected (Not Detect); Benzodiazepines Screen Urine Not Detected (Not Detect); Cannabinoid Screen Urine Not Detected (Not Detect); Cocaine Screen Urine POSITIVE (Not Detect); Fentanyl, urine Not Detected (Not Detect); Opiate Screen Urine Not Detected (Not Detect); Phencyclidine Screen Urine Not Detected (Not Detect)
[2022-09-25 02:53] LABS: COVID-19 Test Negative (Negative); IDNOW Serial# BCCEAD1C
[2022-09-25 03:28] LABS: Bacteria Urine 2+ (None Seen); Hyaline Casts Urine 0-2 /LPF (0-2); RBC Urine 0-2 /HPF (0-2); WBC Urine 21-50 /HPF (0-5)
--- NOTE | 2022-09-25 04:52 | ED_ITS ---
HPI - Psych General Chief Complaint: Psychiatric Symptoms Stated Complaint: crisis Time Seen by Provider: 09/25/22 03:11 Source: patient Mode of arrival: EMS Limitations: no limitations History of Present Illness HPI Narrative: Patient history of mood disorder, cocaine use, bipolar disorder, PTSD been here multiple times and discharged yesterday after feeling suicidal. With thoughts of jumping off the bridge. Acutely patient unable to go to her apartment patient under renovation unable to go to shelters that she feels main reason for her feeling suicidal Related Data Home Medications Medication Instructions Recorded Confirmed capsaicin 0.025 % topical cream 1 appl topical QID PRN pain 07/02/22 09/25/22 benztropine 1 mg tablet 1 tab PO BID 07/23/22 09/25/22 cholecalciferol (vitamin D3) 25 1 tab PO DAILY 07/23/22 09/25/22 mcg (1,000 unit) tablet omeprazole 20 mg capsule,delayed 1 cap PO DAILY@0630 07/23/22 09/25/22 release oxcarbazepine 150 mg tablet 1 tab PO BID 07/23/22 09/25/22 sertraline 50 mg tablet 50 mg PO DAILY 07/23/22 09/25/22 trazodone 100 mg tablet 2 tab PO BEDTIME 07/23/22 09/25/22 valacyclovir 1 gram tablet 1 tab PO BID 07/23/22 09/25/22 lithium carbonate 600 mg capsule 1 cap PO BID 07/24/22 09/25/22 cyanocobalamin (vitamin B-12) 100 1 tab PO DAILY 08/06/22 09/25/22 mcg tablet nitroglycerin 0.4 mg sublingual 0.4 mg sublingual Q5M PRN Chest 08/06/22 09/25/22 tablet Pain olanzapine 10 mg tablet 1 tab PO BEDTIME 08/06/22 09/25/22 bupropion HCl 150 mg 24 hr tablet, 150 mg PO QAM 09/23/22 09/25/22 extended release clonidine HCl 0.1 mg tablet 0.2 mg PO BEDTIME 09/23/22 09/25/22 gabapentin 400 mg capsule 1 cap PO TID 09/23/22 09/25/22 lithium carbonate 300 mg capsule 300 mg PO BID 09/23/22 09/25/22 nitrofurantoin 100 mg capsule 100 mg PO Q12H 09/23/22 09/25/22 ropinirole 0.5 mg tablet 0.5 mg PO BEDTIME 09/23/22 09/25/22 tiotropium bromide 18 mcg capsule 1 cap inhalation DAILY 09/23/22 09/25/22 with inhalation device (Spiriva with HandiHaler) Previous Rx's Medication Instructions Recorded albuterol sulfate 90 mcg/actuation 2 puff inhalation Q4-6H PRN 04/20/22 aerosol inhaler shortness of breath or wheezing 30 days #1 inhaler ferrous sulfate 324 mg (65 mg 324 mg PO DAILY 30 days #30 tabs 05/18/22 iron) tablet,delayed release nicotine 21 mg/24 hr daily 21 mg transdermal DAILY #30 ea 06/07/22 transdermal patch Allergies Allergy/AdvReac Type Severity Reaction Status Date / Time aspirin [Aspirin] Allergy Severe HIVES,THROAT Verified 09/07/22 22:13 SWELLS bee pollen [BEE STINGS] Allergy Severe ANAPHYLAXIS Verified 09/07/22 22:13 diphenhydramine Allergy Severe hives, Verified 09/07/22 22:13 [From BENADRYL ALLERGY] throat swells Penicillins [PCN] Allergy Severe HIVES Verified 09/07/22 22:13 THROAT SWELLS Sulfa (Sulfonamide Allergy Intermediate HIVES Verified 09/07/22 22:13 Antibiotics) [SULFA (SULFONAMIDE ANTIBIOTICS)] tramadol [TRAMADOL] Allergy Intermediate ITCHING Verified 09/07/22 22:13 latex [LATEX] Allergy Unknown UNKNOWN Verified 09/07/22 22:13 penicillin G Allergy Unknown Unknown Verified 09/07/22 22:13 levofloxacin [From Levaquin] Allergy Hives Verified 09/07/22 22:13 hydroxyzine AdvReac Severe restless Verified 09/07/22 22:13 legs seafood AdvReac Stomach Verified 09/03/22 20:12 Upset Review of Systems Review of Systems: Yes all other systems are reviewed and are negative PMFSH Past Medical History Medical History Asthma exacerbation in COPD Asthma-COPD overlap syndrome Bipolar disorder Bipolar I disorder Borderline personality disorder COPD (chronic obstructive pulmonary disease) Depression Drug abuse Herpes Intermittent explosive disorder Mass of parotid gland FABIOLA (obstructive sleep apnea) Post traumatic stress disorder (PTSD) Pseudoseizures Tobacco use Surgical History History of ankle surgery History of appendectomy History of back surgery Hx of cholecystectomy Family History Family History Mother COPD (chronic obstructive pulmonary disease) Social History Social History Household Members: None Household Members Other:: [facility] in [place] Housing: Homeless Housing Other:: Sleeps on the couch at [facility] house Do you presently have visiting nurse or other home services: No Unable to assess alcohol history related to: Unknown Alcohol intake: unknown Patient Tobacco Use Status: Current everyday Tobacco user Tobacco use type: Cigarette Cigarette Packs Per Day: 3 Cigarettes Per Day: 2 Years Smoked: 34 e-Cigarette/Vaping Use: Former Use Second Hand Smoke Exposure: Yes Substance Use Type: Crack/Cocaine Advance Directives: Yes Advance Directives on File: Yes Advance Directives Date on File: 06/17/22 service: No Current occupational status: unemployed and disabled Sexual orientation: Straight/Heterosexual Physical Exam Vital Signs: Vital Signs: Last Vital Signs Temp 98.3 F 09/25/22 07:53 Pulse 77 09/25/22 07:53 Resp 16 09/25/22 07:53 BP 98/48 L 09/25/22 07:53 Pulse Ox 90 L 09/25/22 07:53 O2 Del Method 09/25/22 07:53 BMI result Body Mass Index 37.9 Appearance: Alert. Oriented X3. No acute distress. Eyes: PERRLA, No Nystagmus ENT: Pharynx normal. Oral Mucosa moist Neck: Normal inspection. Neck supple. CVS: Normal heart rate and rhythm. Pulses normal. Respiratory: No respiratory distress. Equal air entry bilateral, no wheezing/rales/rhonchi Abdomen: Soft and nontender. Bowel sounds are present, no mass palpable, no CVA tenderness Skin: Skin warm and dry. Normal skin color. Normal skin turgor. Extremities: No lower extremity edema. No calf tenderness psych: Vague suicidal ideas, no hallucinations or delusions Neuro: Oriented X 3. No motor deficit. No sensory deficit.No cerebellar signs , cranial nerves II-XII intact MDM - Psych MDM Narrative Medical decision making narrative: Patient depression bipolar disorder homeless looking for placement. Been here multiple times for suicidal ideation will consult crisis Differential Diagnosis Differential diagnosis: Likely suicidal ideation Lab Data Attestation: I reviewed the patient's lab results. Labs: Lab Results 09/25/22 09/25/22 09/25/22 Range/Units 02:28 02:28 02:28 Urine Color Yellow Urine Appearance Cloudy Urine pH 6.5 (5.0-9.0) Ur Specific Deputy 1.020 (1.005-1.025) Urine Protein Trace (Neg-Trace) mg/dL Urine Glucose (UA) Negative (Negative) mg/dL Urine Ketones Negative (Negative) mg/dL Urine Blood Negative (Negative) Urine Nitrite Negative (Negative) Ur Leukocyte Esterase Large (3+) H (Negative) Urine RBC 0-2 (0-2) /HPF Urine WBC 21-50 H (0-5) /HPF Ur Squamous Epith Cells 11-20 (0-2) /HPF Urine Bacteria 2+ (None Seen) Hyaline Casts 0-2 (0-2) /LPF Urine Opiates Screen Not Detected (Not Detect) Urine Fentanyl Screen Not Detected (Not Detect) Ur Barbiturates Screen Not Detected (Not Detect) Ur Phencyclidine Scrn Not Detected (Not Detect) Ur Amphetamines Screen Not Detected (Not Detect) U Benzodiazepines Scrn Not Detected (Not Detect) Urine Cocaine Screen POSITIVE H (Not Detect) U Marijuana (THC) Screen Not Detected (Not Detect) COVID-19 (ENDY) Negative (Negative) COVID-19 Clin Com See Note Discharge Plan Discharge Clinical Impression: Borderline personality disorder, Suicidal ideation, Bipolar disorder, Cocaine use disorder Patient Disposition: Still a Patient Prescriptions: No Action albuterol sulfate 90 mcg/actuation HFA aerosol inhaler 2 puff inhalation Q4-6H PRN (Reason: shortness of breath or wheezing) 30 Days Qty: 1 0RF ferrous sulfate 324 mg (65 mg iron) tablet,delayed release (DR/EC) 324 mg PO DAILY 30 Days Qty: 30 0RF capsaicin 0.025 % cream 1 appl topical QID PRN (Reason: pain) oxcarbazepine 150 mg tablet 1 tab PO BID valacyclovir 1 gram tablet 1 tab PO BID trazodone 100 mg tablet 2 tab PO BEDTIME benztropine 1 mg tablet 1 tab PO BID omeprazole 20 mg capsule,delayed release(DR/EC) 1 cap PO DAILY@0630 sertraline 50 mg tablet 50 mg PO DAILY cholecalciferol (vitamin D3) 25 mcg (1,000 unit) tablet 1 tab PO DAILY lithium carbonate 600 mg capsule 1 cap PO BID nitroglycerin 0.4 mg tablet, sublingual 0.4 mg sublingual Q5M PRN (Reason: Chest Pain) cyanocobalamin (vitamin B-12) 100 mcg tablet 1 tab PO DAILY olanzapine 10 mg tablet 1 tab PO BEDTIME Spiriva with HandiHaler 18 mcg capsule, w/inhalation device 1 cap inhalation DAILY ropinirole 0.5 mg Tablet 0.5 mg PO BEDTIME Rx Instructions: administer 1-3 hours before bedtime nitrofurantoin 100 mg Capsule 100 mg PO Q12H Rx Instructions: must administer with a meal/food clonidine HCl 0.1 mg Tablet 0.2 mg PO BEDTIME bupropion HCl 150 mg Tablet Extended Release 24 Hr 150 mg PO QAM lithium carbonate 300 mg Capsule 300 mg PO BID nicotine 21 mg/24 hr Patch 24 Hour 21 mg transdermal DAILY Qty: 30 0RF gabapentin 400 mg capsule 1 cap PO TID Interventions: [place]-Suicide Risk Severity Scale Last Done: 09/25/22 02:18
--- NOTE | 2022-09-25 06:34 | PC.NURSE ---
Patient slept through the night, no distress observed/reported, behavior appropriate and non concerning, BHN referral completed/confirmed/pending ETA, med rec completed/pending provider's approval, VSS, will continue to monitor.
--- NOTE | 2022-09-25 07:24 | PC.NURSE ---
No acute changes overnight reported. pt presented for similar ideation in past.
[2022-09-25 07:53] VITALS: BP 98/48; PULSE 77; RESP 16; TEMP 36.8; O2SAT 90
--- NOTE | 2022-09-25 10:03 | MHC.CARE ---
Pt is a 52 y/o , [place] speaking, female, who is previously known to the CARE Team through multiple prior assessments, ED visits, and inpatient stays. Today, pt presented to ED via EMS for suicidal ideation with a plan to jump off a bridge. ?Pt reported a recent relapse on crack cocaine.? ? Pt has been medically cleared and is being screened for risk by the CARE Team to determine appropriate treatment recommendations. Pt has an extensive hx of inpt hospitalizations, and is known to engage in unsafe behavior. Past documented hx of Bipolar d/o, PTSD, substance use suicidal ideation and attempts. CARE Team met with pt in her room in the Behavioral Health Pod of the ED to conduct a risk assessment.? Pt is alert and oriented x4 and is engaged in the assessment and is help seeking.? Pt reports that she needs ?Help?, she does not identify the type of help needed but does suggest that inpatient level of care may be of benefit.? Her speech and eye contact are unremarkable.? She reports good sleep while at this facility, but poor sleep while out on the streets as she has to sleep lightly when she can sleep but most often she is unable to sleep.? She reports her appetite is poor.? She describes her mood as ?depressed? and ?wanting to ?.? Pt describes her plan as ?Jumping off a bridge? and identifies a bridge on [facility] in [place] as one potential location; this bridge is over a canal.? She stated that her first choice is an overpass where she planned to leap from the overpass into the traffic below.? Her affect is flat and at times tearful.? Pt denies HI, and .? She denies AVH.? Insight, judgement, memory, concentration and impulse control appear poor. Pt is previously known to the CARE Team via prior assessments, ED presentation, and inpatient stays.? Pt chronically presents to the Ed with a complaint of SI with a plan to jump from a bridge.? There is a notable pattern of pt redacting statements after being in the ED for a period of time.? This is generally after pt secures a place to go such as a friend?s home or community location.? Pt will be a follow up tomorrow morning.
[2022-09-25] MEDS: Lithium Carbonate 300 MG CAPSULE PO ×2 (11:11→20:40)
[2022-09-25] MEDS: Benztropine Mesylate 1 MG TABLET PO ×2 (11:11→20:40)
[2022-09-25] MEDS: Sertraline HCL 50 MG TABLET PO (11:12)
[2022-09-25] MEDS: Cholecalciferol (Vitamin D3) 25 MCG TABLET PO (11:12)
[2022-09-25] MEDS: Gabapentin 400 MG CAPSULE PO ×3 (11:12→20:40)
[2022-09-25] MEDS: Cyanocobalamin (Vitamin B-12) 100 MCG TABLET PO (11:12)
[2022-09-25] MEDS: valACYclovir HCL 1,000 MG TABLET 1000 MG PO ×2 (11:12→20:40)
[2022-09-25] MEDS: Nitrofurantoin Monohyd/M-Cryst 100 MG CAPSULE PO ×2 (11:13→20:44)
[2022-09-25] MEDS: buPROPion HCl XL 150 MG TAB.ER.24H PO (11:13)
[2022-09-25] MEDS: Omeprazole 20 MG CAPSULE.DR PO (11:13)
[2022-09-25] MEDS: Ferrous Sulfate 324 MG TABLET.DR PO (11:14)
[2022-09-25 13:52] VITALS: RESP 16
[2022-09-25] MEDS: Acetaminophen 325 MG TABLET 975 MG PO (15:41)
[2022-09-25 20:27] VITALS: BP 109/61; PULSE 77; RESP 18; TEMP 36.1; O2SAT 94
[2022-09-25] MEDS: cloNIDine HCL 0.2 MG TABLET PO (20:40)
[2022-09-25] MEDS: traZODone HCL 100 MG TABLET 200 MG PO (20:40)
[2022-09-26] MEDS: Ibuprofen 800 MG TABLET PO (03:51)
[2022-09-26 04:17] VITALS: BP 110/58; PULSE 82; RESP 17; TEMP 36.2; O2SAT 94
--- NOTE | 2022-09-26 06:52 | PC.NURSE ---
Patient slept through the night, no distress observed/reported, behavior appropriate and non concerning, BHN referral completed/confirmed/pending ETA, medication compliant, VSS, will continue to monitor.
[2022-09-26] MEDS: Omeprazole 20 MG CAPSULE.DR PO (06:55)
[2022-09-26] MEDS: Sertraline HCL 50 MG TABLET PO (08:20)
[2022-09-26] MEDS: Benztropine Mesylate 1 MG TABLET PO (08:20)
[2022-09-26] MEDS: Lithium Carbonate 300 MG CAPSULE PO (08:21)
[2022-09-26] MEDS: buPROPion HCl XL 150 MG TAB.ER.24H PO (08:21)
[2022-09-26] MEDS: Ferrous Sulfate 324 MG TABLET.DR PO (08:21)
[2022-09-26] MEDS: Cholecalciferol (Vitamin D3) 25 MCG TABLET PO (08:21)
[2022-09-26] MEDS: Gabapentin 400 MG CAPSULE PO (08:21)
[2022-09-26] MEDS: valACYclovir HCL 1,000 MG TABLET 1000 MG PO (08:22)
[2022-09-26] MEDS: Nicotine 21 MG PATCH.TD24 TRANSDERMA (08:22)
[2022-09-26] MEDS: Cyanocobalamin (Vitamin B-12) 100 MCG TABLET PO (08:22)
[2022-09-26 08:45] VITALS: BP 118/78; PULSE 58; RESP 16; TEMP 36.7; O2SAT 94
--- NOTE | 2022-09-26 09:22 | PC.NURSE ---
D/c home via [facility]
--- NOTE | 2022-09-26 09:59 | MHC.CARE ---
CARE Team met with pt in her room in the Behavioral Health Pod of the ED to conduct a follow up to the risk assessment conducted yesterday.? Pt is alert and oriented x4 and is engaged in the assessment and is help seeking.? Pt reports that she is feeling ?Much better? and is now denying SI and any self-harm urges.? She denies AVH, HI, and .? She describes her mood as ?Good? and demonstrates a broad range of affect, smiling broadly during parts of the assessment.? She reports good appetite and a restful sleep. Insight, judgement, memory, concentration and impulse control appear fair. Pt is previously known to the CARE Team via prior assessments, ED presentation, and inpatient stays.? Pt chronically presents to the Ed with a complaint of SI with a plan to jump from a bridge.? There is a notable pattern of pt redacting statements after being in the ED for a period of time.? This is generally after pt secures a place to go such as a friend?s home or community location.? Pt is requesting a discharge and was able to verbally safety plan with CARE Team. Plan is for pt to be discharged.? This plan was discussed with and agreed upon by CARE Team buddhist monk clinician Bentley STEPHENS and Ed provider Dr. Menezes.
== END 2022-09-26 09:46 | disposition home or self-care (01) ==
PROVIDERS: Emergency Provider Internal Medicine
DX: F60.3 Borderline personality disorder (principal); R45.851 Suicidal ideations; F31.9 Bipolar disorder, unspecified; F14.10 Cocaine abuse, uncomplicated; Z20.822 Contact with and (suspected) exposure to COVID-19; F19.959 Other psychoactive substance use, unspecified with psychoactive substance-induced psychotic disorder, unspecified; F17.210 Nicotine dependence, cigarettes, uncomplicated; Z79.899 Other long term (current) drug therapy
CPT/HCPCS: 80307; 81001; 81003; 87635; 99285

== ENCOUNTER 2022-09-30 09:08 | Emergency (ER) | payer MEDICAID, SELFPAY ==
[2022-09-30 09:16] VITALS: PULSE 82; O2SAT 96; BMI 33.3
--- NOTE | 2022-09-30 09:52 | ECG_ITS ---
Test Reason : Chest Pain Blood Pressure : / mmHG Vent. Rate : 067 BPM Atrial Rate : 067 BPM P-R Int : 144 ms QRS Dur : 086 ms QT Int : 420 ms P-R-T Axes : 047 025 015 degrees QTc Int : 443 ms Normal sinus rhythm Nonspecific T wave abnormality Abnormal ECG When compared with ECG of 08-SEP-2022 11:20, No significant change was found Referred By: Zen Lemus Electronically Signed By:Deangelo Gutierres
[2022-09-30 10:29] VITALS: BP 138/86; PULSE 85; RESP 24; TEMP 37; O2SAT 95
[2022-09-30 10:35] VITALS: BP 134/87; PULSE 69; RESP 16; TEMP 36.1; O2SAT 95
[2022-09-30] MEDS: LORazepam 1 MG TABLET PO (10:38)
[2022-09-30] MEDS: Acetaminophen 325 MG TABLET 650 MG PO (10:38)
[2022-09-30 10:40] LABS: MANUAL DIFF FLAG NO
[2022-09-30 10:46] LABS: Basophils Absolute Auto 0.1 X10*3/uL (0.0-0.2); Basophils Percent Auto 0.8 % (0-2); Eosinophils Absolute Auto 0.1 X10*3/uL (0.0-0.4); Eosinophils Percent Auto 1.3 % (0-4); Hematocrit 39.3 % (37.0-47.0); Hemoglobin 12.7 g/dl (12.0-16.0); Imm Gran Abs Auto 0.02 X10*3/uL (0.00-0.03); Imm Gran Pct Auto 0.3 % (0.0-0.4); Lymphocytes Absolute Auto 2.1 X10*3/uL (1.2-4.9); Lymphocytes Percent Auto 28.8 % (20-40); Mean Corpuscular HGB Conc 32.3 g/dl (31.0-35.0); Mean Corpuscular Volume 92.7 fL (80.0-98.0); Mean Platelet Volume 9.8 fL (9.4-12.3); Monocytes Absolute Auto 0.5 X10*3/uL (0.1-1.2); Monocytes Percent Auto 6.5 % (2-11); Neutrophils Absolute Auto 4.5 x10*3/uL (2.0-8.3); Neutrophils Percent Auto 62.3 % (45-73); Platelet Count 326 X10*3/uL (160-400); Red Blood Count 4.24 X10*6/uL (4.20-5.50); White Blood Count 7.2 X10*3/uL (4.8-10.8)
[2022-09-30 10:55] LABS: COVID-19 Test Negative (Negative); IDNOW Serial# 16C4AD1C
[2022-09-30 11:04] LABS: Acetaminophen LAB < 1 mcg/mL (<30); Alanine Aminotransferase 16 U/L (0-31); Albumin Level 4.4 g/dL (3.5-5.0); Alkaline Phosphatase 79 U/L (39-117); Anion Gap 13 (12-20); Aspartate Amino Transferase 12 U/L (5-31); Blood Urea Nitrogen 11 mg/dL (9-16); Calcium 9.7 mg/dL (8.4-10.2); Carbon Dioxide 29 mmol/L (22-29); Chloride 102 mmol/L (96-108); Creatinine Clr Calc Pharmacy 105.7; Estimated Glomerular Filt Rate > 60; Ethanol < 10 mg/dL; Glucose Random 100 mg/dL (60-115); Salicylate < 5.0 mg/dL (15-30); Sodium 140 mmol/L (135-145); Total Protein 6.8 g/dL (6.5-8.0)
[2022-09-30 11:41] LABS: Bilirubin Total 0.5 mg/dL (0.0-1.0)
--- NOTE | 2022-09-30 12:05 | MHC.CARE ---
[place] [employer] were here speaking with patient, she reported they may be sending her to a motel until her apartment is ready, believes she will be letting her know shortly Det. Brandon Macedo cell: [phone] [facility] office: [phone]
--- NOTE | 2022-09-30 12:54 | ED_ITS ---
HPI - Psych General Chief Complaint: Psychiatric Symptoms Stated Complaint: SI/drug use x 3 days per EMS Time Seen by Provider: 09/30/22 09:19 Source: patient and EMS Mode of arrival: EMS History of Present Illness HPI Narrative: 52-year-old female with a past medical history of psychiatric illness presents to the emergency department today stating that she has been using crack recently. Also been feeling suicidal for approximately 3 days. Additionally, claims to be having visual and auditory hallucinations. MD complaint: suicidal ideation, feels depressed and hallucinations Onset (ago): day(s) Duration: constant History of same: Yes Relieving factors: none Exacerbating factors: none Related Data Home Medications Medication Instructions Recorded Confirmed capsaicin 0.025 % topical cream 1 appl topical QID PRN pain 07/02/22 09/30/22 benztropine 1 mg tablet 1 tab PO BID 07/23/22 09/30/22 cholecalciferol (vitamin D3) 25 1 tab PO DAILY 07/23/22 09/30/22 mcg (1,000 unit) tablet omeprazole 20 mg capsule,delayed 1 cap PO DAILY@0630 07/23/22 09/30/22 release oxcarbazepine 150 mg tablet 1 tab PO BID 07/23/22 09/30/22 sertraline 50 mg tablet 50 mg PO DAILY 07/23/22 09/30/22 trazodone 100 mg tablet 2 tab PO BEDTIME 07/23/22 09/30/22 valacyclovir 1 gram tablet 1 tab PO BID 07/23/22 09/30/22 lithium carbonate 600 mg capsule 1 cap PO BID 07/24/22 09/30/22 cyanocobalamin (vitamin B-12) 100 1 tab PO DAILY 08/06/22 09/30/22 mcg tablet nitroglycerin 0.4 mg sublingual 0.4 mg sublingual Q5M PRN Chest 08/06/22 09/30/22 tablet Pain olanzapine 10 mg tablet 1 tab PO BEDTIME 08/06/22 09/30/22 bupropion HCl 150 mg 24 hr tablet, 150 mg PO QAM 09/23/22 09/30/22 extended release clonidine HCl 0.1 mg tablet 0.2 mg PO BEDTIME 09/23/22 09/30/22 gabapentin 400 mg capsule 1 cap PO TID 09/23/22 09/30/22 lithium carbonate 300 mg capsule 300 mg PO BID 09/23/22 09/30/22 nitrofurantoin 100 mg capsule 100 mg PO Q12H 09/23/22 09/30/22 ropinirole 0.5 mg tablet 0.5 mg PO BEDTIME 09/23/22 09/30/22 tiotropium bromide 18 mcg capsule 1 cap inhalation DAILY 09/23/22 09/30/22 with inhalation device (Spiriva with HandiHaler) Previous Rx's Medication Instructions Recorded albuterol sulfate 90 mcg/actuation 2 puff inhalation Q4-6H PRN 04/20/22 aerosol inhaler shortness of breath or wheezing 30 days #1 inhaler ferrous sulfate 324 mg (65 mg 324 mg PO DAILY 30 days #30 tabs 05/18/22 iron) tablet,delayed release nicotine 21 mg/24 hr daily 21 mg transdermal DAILY #30 ea 06/07/22 transdermal patch Allergies Allergy/AdvReac Type Severity Reaction Status Date / Time aspirin [Aspirin] Allergy Severe HIVES,THROAT Verified 09/07/22 22:13 SWELLS bee pollen [BEE STINGS] Allergy Severe ANAPHYLAXIS Verified 09/07/22 22:13 diphenhydramine Allergy Severe hives, Verified 09/07/22 22:13 [From BENADRYL ALLERGY] throat swells Penicillins [PCN] Allergy Severe HIVES Verified 09/07/22 22:13 THROAT SWELLS Sulfa (Sulfonamide Allergy Intermediate HIVES Verified 09/07/22 22:13 Antibiotics) [SULFA (SULFONAMIDE ANTIBIOTICS)] tramadol [TRAMADOL] Allergy Intermediate ITCHING Verified 09/07/22 22:13 latex [LATEX] Allergy Unknown UNKNOWN Verified 09/07/22 22:13 penicillin G Allergy Unknown Unknown Verified 09/07/22 22:13 levofloxacin [From Levaquin] Allergy Hives Verified 09/07/22 22:13 hydroxyzine AdvReac Severe restless Verified 09/07/22 22:13 legs seafood AdvReac Stomach Verified 09/03/22 20:12 Upset Review of Systems Constitutional: Constitutional: Denies chills, Reports difficulty sleeping and Denies fever(s) Eyes: Eyes: Denies blurry vision and Denies diplopia ENT: Denies vertigo, Denies dizziness and Denies sore throat Cardiovascular: Cardiovascular: Denies syncope Respiratory: Respiratory: Reports no additional respiratory complaints Gastrointestinal: Gastrointestinal: Reports no additional gastrointestinal complaints Musculoskeletal: Musculoskeletal: Denies back pain and Denies myalgias Neurologic: Denies vertigo, Denies dizziness and Denies syncope Psychiatric: Psychiatric: Reports as per HPI, Reports anxiety, Reports depression, Reports difficulty concentrating and Reports suicidal ideation [facility] Past Medical History Medical History Asthma exacerbation in COPD Asthma-COPD overlap syndrome Bipolar disorder Bipolar I disorder Borderline personality disorder COPD (chronic obstructive pulmonary disease) Depression Drug abuse Herpes Intermittent explosive disorder Mass of parotid gland FABIOLA (obstructive sleep apnea) Post traumatic stress disorder (PTSD) Pseudoseizures Tobacco use Surgical History History of ankle surgery History of appendectomy History of back surgery Hx of cholecystectomy Family History Family History Mother COPD (chronic obstructive pulmonary disease) Social History Social History Household Members: None Household Members Other:: Retirement in [place] Housing: Homeless Housing Other:: Sleeps on the couch at [facility] house Do you presently have visiting nurse or other home services: No Unable to assess alcohol history related to: Unknown Alcohol intake: unknown Patient Tobacco Use Status: Current everyday Tobacco user Tobacco use type: Cigarette Cigarette Packs Per Day: 3 Cigarettes Per Day: 2 Years Smoked: 34 Smoked in Last 30 Days: Yes e-Cigarette/Vaping Use: Former Use Second Hand Smoke Exposure: Yes Use of substances other than those prescribed or required for medical reasons: Yes Substance Use Type: Crack/Cocaine Advance Directives: Yes Advance Directives on File: Yes Advance Directives Date on File: 06/17/22 Patient : No service: No Current occupational status: unemployed and disabled Sexual orientation: Straight/Heterosexual Physical Exam Vital Signs: Vital Signs: Last Vital Signs Temp 96.9 F 09/30/22 10:35 Pulse 69 09/30/22 10:35 Resp 16 09/30/22 10:35 BP 134/87 09/30/22 10:35 Pulse Ox 95 09/30/22 10:35 O2 Del Method 09/30/22 10:35 BMI result Body Mass Index 33.3 Vital signs reviewed, and are normal Const: General: cooperative and no acute distress Orientation/consciousness: patient oriented x3 HEENT: Head: Yes normal to inspection, Yes normocephalic and Yes atraumatic Ears: external ears normal General nose exam: Normal external nose present Face and sinus: Yes normal facial exam Eyes: Conjunctivae: conjunctivae normal Sclerae: sclerae normal Resp: Effort & Inspection: normal respiratory effort and no cough Skin: General skin exam: no rashes or lesions noted Neuro: General: patient oriented x3 and gait normal Extrem: General: Yes normal to inspection Psych: Appearance: disheveled Speech and movement: Normal speech and movement present Affect: Animated affect present and Anxious affect present Thought process: Loose association thought process present Insight: Poor insight present (Psych) Judgement: Limited judgement present (Psych) Course Reevaluation(s) Reevaluation #1: The patient was evaluated by PIETER. She will have a place to stay after 4:00 a.m. this afternoon. Transportation is being arranged. There is no additional psychiatric concerns at this time. Time: 13:16 Medications Administered Discontinued Medications Generic Name Dose Route Start Last Admin Trade Name Jacob PRN Reason Stop Dose Admin Acetaminophen 650 mg 09/30/22 09:57 09/30/22 10:38 Acetaminophen 325 Mg Tablet PO 09/30/22 09:58 650 mg ONCE ONE Administration Lorazepam 1 mg 09/30/22 09:57 09/30/22 10:38 Lorazepam 1 Mg Tablet PO 09/30/22 09:58 1 mg ONCE ONE Administration MDM - Psych Medical Records Attestation: I reviewed the patient's medical records. Lab Data Result diagrams: 09/30/22 10:25 09/30/22 10:25 Labs: Lab Results 09/30/22 09/30/22 09/30/22 Range/Units 10:25 10:25 10:25 WBC 7.2 (4.8-10.8) X10*3/uL RBC 4.24 (4.20-5.50) X10*6/uL Hgb 12.7 (12.0-16.0) g/dl Hct 39.3 (37.0-47.0) % MCV 92.7 (80.0-98.0) fL MCH 30.0 (27.0-33.0) pg MCHC 32.3 (31.0-35.0) g/dl RDW 13.0 (11.0-16.0) % Plt Count 326 D (160-400) X10*3/uL MPV 9.8 (9.4-12.3) fL Immature Gran % (Auto) 0.3 (0.0-0.4) % Neut % (Auto) 62.3 (45-73) % Lymph % (Auto) 28.8 (20-40) % [place] % (Auto) 6.5 (2-11) % Eos % (Auto) 1.3 (0-4) % Baso % (Auto) 0.8 (0-2) % Lymph # (Auto) 2.1 (1.2-4.9) X10*3/uL [place] # (Auto) 0.5 (0.1-1.2) X10*3/uL Eos # (Auto) 0.1 (0.0-0.4) X10*3/uL Baso # (Auto) 0.1 (0.0-0.2) X10*3/uL Abs Immat Gran (auto) 0.02 (0.00-0.03) X10*3/uL Absolute Neuts (auto) 4.5 (2.0-8.3) x10*3/uL Absolute Nucleated RBC 0.000 (0.0-0.012) X10*3/uL Nucleated RBC % (auto) 0.0 (0.0-0.2) /100WBC Sodium 140 (135-145) mmol/L Potassium 4.0 (3.3-5.1) mmol/L Chloride 102 (96-108) mmol/L Carbon Dioxide 29 (22-29) mmol/L Anion Gap 13 (12-20) BUN 11 (9-16) mg/dL Creatinine 0.70 (0.5-1.4) mg/dL Estim Creat Clear Calc 105.7 Estimated GFR > 60 Random Glucose 100 (60-115) mg/dL Calcium 9.7 (8.4-10.2) mg/dL Total Bilirubin 0.5 (0.0-1.0) mg/dL AST 12 (5-31) U/L ALT 16 (0-31) U/L Alkaline Phosphatase 79 (39-117) U/L Total Protein 6.8 (6.5-8.0) g/dL Albumin 4.4 (3.5-5.0) g/dL Salicylates < 5.0 L (15-30) mg/dL Acetaminophen < 1 (<30) mcg/mL Ethyl Alcohol < 10 mg/dL COVID-19 (ENDY) Negative (Negative) COVID-19 Clin Com See Note Discharge Plan Discharge Clinical Impression: Borderline personality disorder, Chronic schizophrenia Patient Disposition: Home, Self-Care Instructions: Schizophrenia (ED) Prescriptions: No Action albuterol sulfate 90 mcg/actuation HFA aerosol inhaler 2 puff inhalation Q4-6H PRN (Reason: shortness of breath or wheezing) 30 Days Qty: 1 0RF ferrous sulfate 324 mg (65 mg iron) tablet,delayed release (DR/EC) 324 mg PO DAILY 30 Days Qty: 30 0RF capsaicin 0.025 % cream 1 appl topical QID PRN (Reason: pain) oxcarbazepine 150 mg tablet 1 tab PO BID valacyclovir 1 gram tablet 1 tab PO BID trazodone 100 mg tablet 2 tab PO BEDTIME benztropine 1 mg tablet 1 tab PO BID omeprazole 20 mg capsule,delayed release(DR/EC) 1 cap PO DAILY@0630 sertraline 50 mg tablet 50 mg PO DAILY cholecalciferol (vitamin D3) 25 mcg (1,000 unit) tablet 1 tab PO DAILY lithium carbonate 600 mg capsule 1 cap PO BID nitroglycerin 0.4 mg tablet, sublingual 0.4 mg sublingual Q5M PRN (Reason: Chest Pain) cyanocobalamin (vitamin B-12) 100 mcg tablet 1 tab PO DAILY olanzapine 10 mg tablet 1 tab PO BEDTIME Spiriva with HandiHaler 18 mcg capsule, w/inhalation device 1 cap inhalation DAILY ropinirole 0.5 mg Tablet 0.5 mg PO BEDTIME Rx Instructions: administer 1-3 hours before bedtime nitrofurantoin 100 mg Capsule 100 mg PO Q12H Rx Instructions: must administer with a meal/food clonidine HCl 0.1 mg Tablet 0.2 mg PO BEDTIME bupropion HCl 150 mg Tablet Extended Release 24 Hr 150 mg PO QAM lithium carbonate 300 mg Capsule 300 mg PO BID nicotine 21 mg/24 hr Patch 24 Hour 21 mg transdermal DAILY Qty: 30 0RF gabapentin 400 mg capsule 1 cap PO TID Interventions: [place]-Suicide Risk Severity Scale Last Done: 09/30/22 10:53
--- NOTE | 2022-09-30 13:38 | PC.NURSE ---
Provider notified of safe d/c plan to [facility] hot. VSS.
== END 2022-09-30 13:56 | disposition home or self-care (01) ==
PROVIDERS: Emergency Provider Emergency Medicine
DX: F60.3 Borderline personality disorder (principal); F25.0 Schizoaffective disorder, bipolar type; R45.851 Suicidal ideations; Z20.822 Contact with and (suspected) exposure to COVID-19; F43.10 Post-traumatic stress disorder, unspecified; F14.10 Cocaine abuse, uncomplicated; F17.210 Nicotine dependence, cigarettes, uncomplicated; Z79.899 Other long term (current) drug therapy
CPT/HCPCS: 80053; 80143; 80179; 82077; 85025; 87635; 93005; 99285

== ENCOUNTER 2022-10-24 08:09 | Emergency (ER) | payer MEDICAID, SELFPAY ==
[2022-10-24 08:18] VITALS: BP 138/76; BP 145/90; PULSE 70; PULSE 78; RESP 16; TEMP 36.6; O2SAT 96; BMI 44.3
[2022-10-24 09:31] LABS: MANUAL DIFF FLAG NO
[2022-10-24 09:33] LABS: Basophils Absolute Auto 0.1 X10*3/uL (0.0-0.2); Basophils Percent Auto 1.3 % (0-2); Eosinophils Absolute Auto 0.1 X10*3/uL (0.0-0.4); Eosinophils Percent Auto 2.3 % (0-4); Hematocrit 43.2 % (37.0-47.0); Hemoglobin 13.9 g/dl (12.0-16.0); Imm Gran Abs Auto 0.01 X10*3/uL (0.00-0.03); Imm Gran Pct Auto 0.2 % (0.0-0.4); Lymphocytes Percent Auto 38.2 % (20-40); Mean Corpuscular HGB Conc 32.2 g/dl (31.0-35.0); Mean Corpuscular Hemoglobin 29.6 pg (27.0-33.0); Mean Corpuscular Volume 91.9 fL (80.0-98.0); Mean Platelet Volume 9.8 fL (9.4-12.3); Monocytes Absolute Auto 0.3 X10*3/uL (0.1-1.2); Neutrophils Absolute Auto 2.8 x10*3/uL (2.0-8.3); Platelet Count 270 X10*3/uL (160-400); Red Cell Distribution Width 12.5 % (11.0-16.0); White Blood Count 5.3 X10*3/uL (4.8-10.8)
[2022-10-24 09:43] LABS: VBG Base Excess -1.1 mmol/L; VBG HCO3 24 mmol/L (22-26); VBG pCO2 44 mmHg; VBG pH 7.35 (7.32-7.43); VBG pO2 45 mmHg
[2022-10-24 09:48] LABS: COVID-19 Test Negative (Negative); IDNOW Serial# 16C4AD1C; IDNOW Serial# BCCEAD1C; Influenza A Negative (Negative); Influenza B2 Negative (Negative)
[2022-10-24 09:52] LABS: Acetaminophen LAB < 1 mcg/mL (<30); Alanine Aminotransferase 17 U/L (0-31); Albumin Level 4.4 g/dL (3.5-5.0); Alkaline Phosphatase 75 U/L (39-117); Anion Gap 10 (12-20); Aspartate Amino Transferase 14 U/L (5-31); Bilirubin Total 0.4 mg/dL (0.0-1.0); Blood Urea Nitrogen 15 mg/dL (9-16); Calcium 9.5 mg/dL (8.4-10.2); Carbon Dioxide 26 mmol/L (22-29); Chloride 107 mmol/L (96-108); Creatinine Clr Calc Pharmacy 124.9; Estimated Glomerular Filt Rate > 60; Glucose Random 111 mg/dL (60-115); Potassium 4.4 mmol/L (3.3-5.1); Salicylate < 5.0 mg/dL (15-30); Sodium 139 mmol/L (135-145); Total Protein 6.8 g/dL (6.5-8.0)
[2022-10-24 09:58] LABS: Venous Blood Gas Refer to POC result
--- NOTE | 2022-10-24 10:24 | ED.SEIZURE ---
HPI - Seizure General Chief Complaint: Seizure Stated Complaint: ?SZ LIKE ACTIVITY,NO POST DICTAL PERIOD PER EMS Time Seen by Provider: 10/24/22 08:31 Source: patient Mode of arrival: EMS History of Present Illness HPI Narrative: 52-year-old female well known to this emergency room brought in by EMS from the longterm where patient states she had a 2-3 minute seizure and denies any new medication changes or missed doses, as per EMS she is not having a postictal phase, patient states she is at baseline but does report poor sleep pattern. Overall, patient states she is feeling so much better and says that she has not used any drugs for 3 and half weeks and that she is very excited about the impending apartment that she will be moving into in October. Seizure History: Yes Related Data Home Medications Medication Instructions Recorded Confirmed capsaicin 0.025 % topical cream 1 appl topical QID PRN pain 07/02/22 09/30/22 benztropine 1 mg tablet 1 tab PO BID 07/23/22 09/30/22 cholecalciferol (vitamin D3) 25 1 tab PO DAILY 07/23/22 09/30/22 mcg (1,000 unit) tablet omeprazole 20 mg capsule,delayed 1 cap PO DAILY@0630 07/23/22 09/30/22 release oxcarbazepine 150 mg tablet 1 tab PO BID 07/23/22 09/30/22 sertraline 50 mg tablet 50 mg PO DAILY 07/23/22 09/30/22 trazodone 100 mg tablet 2 tab PO BEDTIME 07/23/22 09/30/22 valacyclovir 1 gram tablet 1 tab PO BID 07/23/22 09/30/22 lithium carbonate 600 mg capsule 1 cap PO BID 07/24/22 09/30/22 cyanocobalamin (vitamin B-12) 100 1 tab PO DAILY 08/06/22 09/30/22 mcg tablet nitroglycerin 0.4 mg sublingual 0.4 mg sublingual Q5M PRN Chest 08/06/22 09/30/22 tablet Pain olanzapine 10 mg tablet 1 tab PO BEDTIME 08/06/22 09/30/22 bupropion HCl 150 mg 24 hr tablet, 150 mg PO QAM 09/23/22 09/30/22 extended release clonidine HCl 0.1 mg tablet 0.2 mg PO BEDTIME 09/23/22 09/30/22 gabapentin 400 mg capsule 1 cap PO TID 09/23/22 09/30/22 lithium carbonate 300 mg capsule 300 mg PO BID 09/23/22 09/30/22 nitrofurantoin 100 mg capsule 100 mg PO Q12H 09/23/22 09/30/22 ropinirole 0.5 mg tablet 0.5 mg PO BEDTIME 09/23/22 09/30/22 tiotropium bromide 18 mcg capsule 1 cap inhalation DAILY 09/23/22 09/30/22 with inhalation device (Spiriva with HandiHaler) Previous Rx's Medication Instructions Recorded albuterol sulfate 90 mcg/actuation 2 puff inhalation Q4-6H PRN 04/20/22 aerosol inhaler shortness of breath or wheezing 30 days #1 inhaler ferrous sulfate 324 mg (65 mg 324 mg PO DAILY 30 days #30 tabs 05/18/22 iron) tablet,delayed release nicotine 21 mg/24 hr daily 21 mg transdermal DAILY #30 ea 06/07/22 transdermal patch Allergies Allergy/AdvReac Type Severity Reaction Status Date / Time aspirin [Aspirin] Allergy Severe HIVES,THROAT Verified 09/07/22 22:13 SWELLS bee pollen [BEE STINGS] Allergy Severe ANAPHYLAXIS Verified 09/07/22 22:13 diphenhydramine Allergy Severe hives, Verified 09/07/22 22:13 [From BENADRYL ALLERGY] throat swells Penicillins [PCN] Allergy Severe HIVES Verified 09/07/22 22:13 THROAT SWELLS Sulfa (Sulfonamide Allergy Intermediate HIVES Verified 09/07/22 22:13 Antibiotics) [SULFA (SULFONAMIDE ANTIBIOTICS)] tramadol [TRAMADOL] Allergy Intermediate ITCHING Verified 09/07/22 22:13 latex [LATEX] Allergy Unknown UNKNOWN Verified 09/07/22 22:13 penicillin G Allergy Unknown Unknown Verified 09/07/22 22:13 levofloxacin [From Levaquin] Allergy Hives Verified 09/07/22 22:13 hydroxyzine AdvReac Severe restless Verified 09/07/22 22:13 legs seafood AdvReac Stomach Verified 09/03/22 20:12 Upset Review of Systems Review of Systems: Pertinent positives and negatives as stated in HPI 10 point review of systems otherwise negative. PMFSH Past Medical History Source: nursing notes reviewed Medical History Asthma exacerbation in COPD Asthma-COPD overlap syndrome Bipolar disorder Bipolar I disorder Borderline personality disorder COPD (chronic obstructive pulmonary disease) Depression Drug abuse Herpes Intermittent explosive disorder Mass of parotid gland FABIOLA (obstructive sleep apnea) Post traumatic stress disorder (PTSD) Pseudoseizures Tobacco use Surgical History History of ankle surgery History of appendectomy History of back surgery Hx of cholecystectomy Family History Family History Mother COPD (chronic obstructive pulmonary disease) Social History Social History Household Members: None Household Members Other:: Care Home in [place] Housing: Homeless Housing Other:: Sleeps on the couch at [facility] house Do you presently have visiting nurse or other home services: No Unable to assess alcohol history related to: Unknown Alcohol intake: unknown Patient Tobacco Use Status: Current everyday Tobacco user Tobacco use type: Cigarette Cigarette Packs Per Day: 3 Cigarettes Per Day: 2 Years Smoked: 34 e-Cigarette/Vaping Use: Former Use Second Hand Smoke Exposure: Yes Substance Use Type: Crack/Cocaine Advance Directives: Yes Advance Directives on File: Yes Advance Directives Date on File: 06/17/22 service: No Current occupational status: unemployed and disabled Sexual orientation: Straight/Heterosexual Physical Exam Vital Signs: Vital Signs: Last Vital Signs Temp 97.9 F 10/24/22 08:18 Pulse 78 10/24/22 08:18 Resp 16 10/24/22 08:18 BP 138/76 10/24/22 08:18 Pulse Ox 96 10/24/22 08:18 O2 Del Method 10/24/22 08:18 BMI result Body Mass Index 44.3 VITAL SIGNS: Reviewed. GENERAL: Well developed, well nourished, in no acute distress. HEAD: Normocephalic/atraumatic EYES: PERRLA, EOMI EARS: Ext canals without abnormality NOSE: Nares patent bilateral OROPHARYNX: no oral lesions noted, posterior pharynx clear NECK: Supple, no adenopathy LUNGS: Normal breath sounds. No adventitious sounds or accessory muscle use. SpO2<96> CARDIOVASCULAR: Regular rate and rhythm without noted murmurs ABDOMEN: Soft, non-tender, non-distended with bowel sounds. MUSCULOSKELETAL: No tenderness, deformities, or effusions noted on gross inspection. EXTREMITIES: No cyanosis, clubbing or edema. SKIN: Inspection of the skin reveals no rashes NEUROLOGIC: Alert and oriented x 4. Strength and sensation to light touch were grossly intact x 4. PSYCH: Normal affect Course Course Course Narrative: I reviewed all of the laboratory workup which does not show any evidence of infection or anemia, patient is not noted to be tachypneic and is oxygenating well on room air, electrolytes are all within normal limits and urinalysis is negative for acute findings. Toxicology for acetaminophen/salicylate is negative. And patient is otherwise stable for discharge to home. Medications Administered Discontinued Medications Generic Name Dose Route Start Last Admin Trade Name Freq PRN Reason Stop Dose Admin Albuterol Sulfate 1 puff 10/24/22 10:26 10/24/22 10:57 Albuterol Sulfate 90 Mcg 8 Gm Inhaler INHALE 10/24/22 10:27 1 puff ONCE ONE Administration Medical Decision Making Medical Decision Making [facility] Narrative: 52-year-old female who self reports a 2-3 minute seizure without postictal phase. Patient does seem to be uncharacteristically upbeat (this is very gratifying given her past history). Differential Diagnosis Differential Diagnoses: The differential diagnosis associated with the presentation includes Will rule out infectious, anemia, electrolyte, toxicology as possible etiologies Lab Data [facility] Lab Attestation statement: I reviewed the patient's lab results. Please see the course description for discussion Result Diagrams: 10/24/22 09:24 10/24/22 09:24 Labs: Lab Results 10/24/22 10/24/22 10/24/22 Range/Units 09:24 09:24 09:24 WBC 5.3 (4.8-10.8) X10*3/uL RBC 4.70 (4.20-5.50) X10*6/uL Hgb 13.9 (12.0-16.0) g/dl Hct 43.2 (37.0-47.0) % MCV 91.9 (80.0-98.0) fL MCH 29.6 (27.0-33.0) pg MCHC 32.2 (31.0-35.0) g/dl RDW 12.5 (11.0-16.0) % Plt Count 270 (160-400) X10*3/uL MPV 9.8 (9.4-12.3) fL Immature Gran % (Auto) 0.2 (0.0-0.4) % Neut % (Auto) 52.0 (45-73) % Lymph % (Auto) 38.2 (20-40) % Eagle % (Auto) 6.0 (2-11) % Eos % (Auto) 2.3 (0-4) % Baso % (Auto) 1.3 (0-2) % Lymph # (Auto) 2.0 (1.2-4.9) X10*3/uL Eagle # (Auto) 0.3 (0.1-1.2) X10*3/uL Eos # (Auto) 0.1 (0.0-0.4) X10*3/uL Baso # (Auto) 0.1 (0.0-0.2) X10*3/uL Abs Immat Gran (auto) 0.01 (0.00-0.03) X10*3/uL Absolute Neuts (auto) 2.8 (2.0-8.3) x10*3/uL Absolute Nucleated RBC 0.000 (0.0-0.012) X10*3/uL Nucleated RBC % (auto) 0.0 (0.0-0.2) /100WBC VBG pH (7.32-7.43) VBG pCO2 mmHg VBG pO2 mmHg VBG HCO3 (22-26) mmol/L VBG O2 Saturation % VBG Base Excess mmol/L Sodium 139 (135-145) mmol/L Potassium 4.4 (3.3-5.1) mmol/L Chloride 107 (96-108) mmol/L Carbon Dioxide 26 (22-29) mmol/L Anion Gap 10 L (12-20) BUN 15 (9-16) mg/dL Creatinine 0.67 (0.5-1.4) mg/dL Estim Creat Clear Calc 124.9 Estimated GFR > 60 Random Glucose 111 (60-115) mg/dL Calcium 9.5 (8.4-10.2) mg/dL Total Bilirubin 0.4 (0.0-1.0) mg/dL AST 14 (5-31) U/L ALT 17 (0-31) U/L Alkaline Phosphatase 75 (39-117) U/L Total Protein 6.8 (6.5-8.0) g/dL Albumin 4.4 (3.5-5.0) g/dL Urine Color Urine Appearance Urine pH (5.0-9.0) Ur Specific Troy (1.005-1.025) Urine Protein (Neg-Trace) mg/dL Urine Glucose (UA) (Negative) mg/dL Urine Ketones (Negative) mg/dL Urine Blood (Negative) Urine Nitrite (Negative) Ur Leukocyte Esterase (Negative) Salicylates < 5.0 L (15-30) mg/dL Acetaminophen < 1 (<30) mcg/mL Malcom 0.10 L (0.60-1.20) mmol/L COVID-19 (ENDY) (Negative) COVID-19 Clin Com Influenza Type A (KELY) (Negative) Influenza Type B (KELY) (Negative) Influenza A & B Note 10/24/22 10/24/22 10/24/22 Range/Units 09:25 09:25 09:29 WBC (4.8-10.8) X10*3/uL RBC (4.20-5.50) X10*6/uL Hgb (12.0-16.0) g/dl Hct (37.0-47.0) % MCV (80.0-98.0) fL MCH (27.0-33.0) pg MCHC (31.0-35.0) g/dl RDW (11.0-16.0) % Plt Count (160-400) X10*3/uL MPV (9.4-12.3) fL Immature Gran % (Auto) (0.0-0.4) % Neut % (Auto) (45-73) % Lymph % (Auto) (20-40) % Eagle % (Auto) (2-11) % Eos % (Auto) (0-4) % Baso % (Auto) (0-2) % Lymph # (Auto) (1.2-4.9) X10*3/uL Eagle # (Auto) (0.1-1.2) X10*3/uL Eos # (Auto) (0.0-0.4) X10*3/uL Baso # (Auto) (0.0-0.2) X10*3/uL Abs Immat Gran (auto) (0.00-0.03) X10*3/uL Absolute Neuts (auto) (2.0-8.3) x10*3/uL Absolute Nucleated RBC (0.0-0.012) X10*3/uL Nucleated RBC % (auto) (0.0-0.2) /100WBC VBG pH 7.35 (7.32-7.43) VBG pCO2 44 mmHg VBG pO2 45 mmHg VBG HCO3 24 (22-26) mmol/L VBG O2 Saturation 72.0 % VBG Base Excess -1.1 mmol/L Sodium (135-145) mmol/L Potassium (3.3-5.1) mmol/L Chloride (96-108) mmol/L Carbon Dioxide (22-29) mmol/L Anion Gap (12-20) BUN (9-16) mg/dL Creatinine (0.5-1.4) mg/dL Estim Creat Clear Calc Estimated GFR Random Glucose (60-115) mg/dL Calcium (8.4-10.2) mg/dL Total Bilirubin (0.0-1.0) mg/dL AST (5-31) U/L ALT (0-31) U/L Alkaline Phosphatase (39-117) U/L Total Protein (6.5-8.0) g/dL Albumin (3.5-5.0) g/dL Urine Color Urine Appearance Urine pH (5.0-9.0) Ur Specific Troy (1.005-1.025) Urine Protein (Neg-Trace) mg/dL Urine Glucose (UA) (Negative) mg/dL Urine Ketones (Negative) mg/dL Urine Blood (Negative) Urine Nitrite (Negative) Ur Leukocyte Esterase (Negative) Salicylates (15-30) mg/dL Acetaminophen (<30) mcg/mL Malcom (0.60-1.20) mmol/L COVID-19 (ENDY) Negative (Negative) COVID-19 Clin Com See Note Influenza Type A (KELY) Negative (Negative) Influenza Type B (KELY) Negative (Negative) Influenza A & B Note See Note 10/24/22 Range/Units 10:30 WBC (4.8-10.8) X10*3/uL RBC (4.20-5.50) X10*6/uL Hgb (12.0-16.0) g/dl Hct (37.0-47.0) % MCV (80.0-98.0) fL MCH (27.0-33.0) pg MCHC (31.0-35.0) g/dl RDW (11.0-16.0) % Plt Count (160-400) X10*3/uL MPV (9.4-12.3) fL Immature Gran % (Auto) (0.0-0.4) % Neut % (Auto) (45-73) % Lymph % (Auto) (20-40) % Eagle % (Auto) (2-11) % Eos % (Auto) (0-4) % Baso % (Auto) (0-2) % Lymph # (Auto) (1.2-4.9) X10*3/uL Eagle # (Auto) (0.1-1.2) X10*3/uL Eos # (Auto) (0.0-0.4) X10*3/uL Baso # (Auto) (0.0-0.2) X10*3/uL Abs Immat Gran (auto) (0.00-0.03) X10*3/uL Absolute Neuts (auto) (2.0-8.3) x10*3/uL Absolute Nucleated RBC (0.0-0.012) X10*3/uL Nucleated RBC % (auto) (0.0-0.2) /100WBC VBG pH (7.32-7.43) VBG pCO2 mmHg VBG pO2 mmHg VBG HCO3 (22-26) mmol/L VBG O2 Saturation % VBG Base Excess mmol/L Sodium (135-145) mmol/L Potassium (3.3-5.1) mmol/L Chloride (96-108) mmol/L Carbon Dioxide (22-29) mmol/L Anion Gap (12-20) BUN (9-16) mg/dL Creatinine (0.5-1.4) mg/dL Estim Creat Clear Calc Estimated GFR Random Glucose (60-115) mg/dL Calcium (8.4-10.2) mg/dL Total Bilirubin (0.0-1.0) mg/dL AST (5-31) U/L ALT (0-31) U/L Alkaline Phosphatase (39-117) U/L Total Protein (6.5-8.0) g/dL Albumin (3.5-5.0) g/dL Urine Color Yellow Urine Appearance Cloudy Urine pH 5.0 (5.0-9.0) Ur Specific Troy 1.020 (1.005-1.025) Urine Protein Negative (Neg-Trace) mg/dL Urine Glucose (UA) Negative (Negative) mg/dL Urine Ketones Negative (Negative) mg/dL Urine Blood Negative (Negative) Urine Nitrite Negative (Negative) Ur Leukocyte Esterase Small (1+) H (Negative) Salicylates (15-30) mg/dL Acetaminophen (<30) mcg/mL Malcom (0.60-1.20) mmol/L COVID-19 (ENDY) (Negative) COVID-19 Clin Com Influenza Type A (KLEY) (Negative) Influenza Type B (KELY) (Negative) Influenza A & B Note External Record Review External record reviewed: Inpatient record and Outpatient record Chronic Conditions Patient?s care impacted by: Cancer COPD Social Determinants Patient?s care significantly limited by Social Determinants of Health including: Low income Discharge Plan Discharge Clinical Impression: Seizure Patient Disposition: Home, Self-Care Instructions: Nonepileptic Seizures (ED) Additional Instructions: 1. Resume all home medications. 2. Follow-up with your primary care provider on Tuesday morning for re-evaluation further outpatient management. Return to the ER for worsening symptoms. Prescriptions: No Action albuterol sulfate 90 mcg/actuation HFA aerosol inhaler 2 puff inhalation Q4-6H PRN (Reason: shortness of breath or wheezing) 30 Days Qty: 1 0RF ferrous sulfate 324 mg (65 mg iron) tablet,delayed release (DR/EC) 324 mg PO DAILY 30 Days Qty: 30 0RF capsaicin 0.025 % cream 1 appl topical QID PRN (Reason: pain) oxcarbazepine 150 mg tablet 1 tab PO BID valacyclovir 1 gram tablet 1 tab PO BID trazodone 100 mg tablet 2 tab PO BEDTIME benztropine 1 mg tablet 1 tab PO BID omeprazole 20 mg capsule,delayed release(DR/EC) 1 cap PO DAILY@0630 sertraline 50 mg tablet 50 mg PO DAILY cholecalciferol (vitamin D3) 25 mcg (1,000 unit) tablet 1 tab PO DAILY lithium carbonate 600 mg capsule 1 cap PO BID nitroglycerin 0.4 mg tablet, sublingual 0.4 mg sublingual Q5M PRN (Reason: Chest Pain) cyanocobalamin (vitamin B-12) 100 mcg tablet 1 tab PO DAILY olanzapine 10 mg tablet 1 tab PO BEDTIME Spiriva with HandiHaler 18 mcg capsule, w/inhalation device 1 cap inhalation DAILY ropinirole 0.5 mg Tablet 0.5 mg PO BEDTIME Rx Instructions: administer 1-3 hours before bedtime nitrofurantoin 100 mg Capsule 100 mg PO Q12H Rx Instructions: must administer with a meal/food clonidine HCl 0.1 mg Tablet 0.2 mg PO BEDTIME bupropion HCl 150 mg Tablet Extended Release 24 Hr 150 mg PO QAM lithium carbonate 300 mg Capsule 300 mg PO BID nicotine 21 mg/24 hr Patch 24 Hour 21 mg transdermal DAILY Qty: 30 0RF gabapentin 400 mg capsule 1 cap PO TID
[2022-10-24 10:38] LABS: Appearance Urine Cloudy; Color Urine Yellow; Glucose Urine UA Negative (Negative); Leukocyte Esterase Urine Small (1+) (Negative); Nitrite Urine Negative (Negative); UMIC TRIGGER UACC YES; Urine Blood Negative (Negative); Urine Ketones Negative (Negative); Urine Protein Negative (Neg-Trace)
[2022-10-24 10:59] VITALS: PULSE 78; RESP 16; O2SAT 96
[2022-10-24 11:00] LABS: Bacteria Urine Trace (None Seen); Granular Casts Urine Present; Hyaline Casts Urine 0-2 /LPF (0-2); RBC Urine 0-2 /HPF (0-2); UACC Culture Trigger YES; WBC Urine 0-5 /HPF (0-5)
--- NOTE | 2022-10-24 11:53 | PC.NURSE ---
NO SEIZURE ACTIVITY DURING ED STAY, SHE DRANK SEVERAL CUP OF COFFEE AND WAS PLEASANT IN HER INTERACTIONS, WALKS WITH A WALKER TO THE BATHROOM
== END 2022-10-24 12:18 | disposition home or self-care (01) ==
PROVIDERS: Emergency Provider Student in an Organized Health Care Education/Training Program
DX: R56.9 Unspecified convulsions (principal); Z20.822 Contact with and (suspected) exposure to COVID-19; Z79.899 Other long term (current) drug therapy
CPT/HCPCS: 36415; 80053; 80143; 80178; 80179; 81001; 82803; 85025; 87086; 87502; 87635; 94664; 99283

== ENCOUNTER 2022-10-26 21:15 | Emergency (ER) | payer MEDICAID, SELFPAY ==
--- NOTE | 2022-10-26 21:20 | ECG_ITS ---
Test Reason : SEIZURE Blood Pressure : / mmHG Vent. Rate : 081 BPM Atrial Rate : 081 BPM P-R Int : 148 ms QRS Dur : 082 ms QT Int : 392 ms P-R-T Axes : 027 019 014 degrees QTc Int : 455 ms Normal sinus rhythm Nonspecific T wave abnormality Abnormal ECG When compared with ECG of 30-SEP-2022 10:02, No significant change was found Referred By: Oswaldo Hollis Electronically Signed By:VAIBHAV KILLIAN MD
[2022-10-26 21:27] VITALS: BP 144/96; BP 152/83; PULSE 82; PULSE 96; RESP 22; TEMP 36.8; O2SAT 94; O2SAT 98; BMI 33.3
--- NOTE | 2022-10-26 21:42 | ED.AMS ---
HPI - Altered Mental Status General Chief Complaint: Seizure Stated Complaint: seizure Time Seen by Provider: 10/26/22 21:27 Source: patient Mode of arrival: EMS Limitations: no limitations History of Present Illness HPI narrative: 52-year-old female who presents emergency department for evaluation of altered mental status. The patient has a history of pseudoseizures and was seen recently in the emergency department on 10/24/2022 ( 3 days prior to evaluation ). The patient states that she knows she has pseudoseizures and they are triggered by stress and anxiety. Patient states that she had a cigarette and was about to go back into [facility]. She states that she was feeling stressed out and anxious because she got into an argument with 1 of the [facility] workers and this made her mad. She then does not remember anything else Except for being transported to the emergency department by ambulance. At the time of evaluation she has no complaints. He denies headache, chest pain, shortness of breath, nausea, vomiting or abdominal pain. She states that over the past week she has had rhinorrhea and a nonproductive cough, she denied chest pain, shortness of breath, nausea or vomiting. She states she did have some diarrhea over the past week.. Related Data Home Medications Medication Instructions Recorded Confirmed capsaicin 0.025 % topical cream 1 appl topical QID PRN pain 07/02/22 09/30/22 benztropine 1 mg tablet 1 tab PO BID 07/23/22 09/30/22 cholecalciferol (vitamin D3) 25 1 tab PO DAILY 07/23/22 09/30/22 mcg (1,000 unit) tablet omeprazole 20 mg capsule,delayed 1 cap PO DAILY@0630 07/23/22 09/30/22 release oxcarbazepine 150 mg tablet 1 tab PO BID 07/23/22 09/30/22 sertraline 50 mg tablet 50 mg PO DAILY 07/23/22 09/30/22 trazodone 100 mg tablet 2 tab PO BEDTIME 07/23/22 09/30/22 valacyclovir 1 gram tablet 1 tab PO BID 07/23/22 09/30/22 lithium carbonate 600 mg capsule 1 cap PO BID 07/24/22 09/30/22 cyanocobalamin (vitamin B-12) 100 1 tab PO DAILY 08/06/22 09/30/22 mcg tablet nitroglycerin 0.4 mg sublingual 0.4 mg sublingual Q5M PRN Chest 08/06/22 09/30/22 tablet Pain olanzapine 10 mg tablet 1 tab PO BEDTIME 08/06/22 09/30/22 bupropion HCl 150 mg 24 hr tablet, 150 mg PO QAM 09/23/22 09/30/22 extended release clonidine HCl 0.1 mg tablet 0.2 mg PO BEDTIME 09/23/22 09/30/22 gabapentin 400 mg capsule 1 cap PO TID 09/23/22 09/30/22 lithium carbonate 300 mg capsule 300 mg PO BID 09/23/22 09/30/22 nitrofurantoin 100 mg capsule 100 mg PO Q12H 09/23/22 09/30/22 ropinirole 0.5 mg tablet 0.5 mg PO BEDTIME 09/23/22 09/30/22 tiotropium bromide 18 mcg capsule 1 cap inhalation DAILY 09/23/22 09/30/22 with inhalation device (Spiriva with HandiHaler) Previous Rx's Medication Instructions Recorded albuterol sulfate 90 mcg/actuation 2 puff inhalation Q4-6H PRN 04/20/22 aerosol inhaler shortness of breath or wheezing 30 days #1 inhaler ferrous sulfate 324 mg (65 mg 324 mg PO DAILY 30 days #30 tabs 05/18/22 iron) tablet,delayed release nicotine 21 mg/24 hr daily 21 mg transdermal DAILY #30 ea 06/07/22 transdermal patch Allergies Allergy/AdvReac Type Severity Reaction Status Date / Time aspirin [Aspirin] Allergy Severe HIVES,THROAT Verified 09/07/22 22:13 SWELLS bee pollen [BEE STINGS] Allergy Severe ANAPHYLAXIS Verified 09/07/22 22:13 diphenhydramine Allergy Severe hives, Verified 09/07/22 22:13 [From BENADRYL ALLERGY] throat swells Penicillins [PCN] Allergy Severe HIVES Verified 09/07/22 22:13 THROAT SWELLS Sulfa (Sulfonamide Allergy Intermediate HIVES Verified 09/07/22 22:13 Antibiotics) [SULFA (SULFONAMIDE ANTIBIOTICS)] tramadol [TRAMADOL] Allergy Intermediate ITCHING Verified 09/07/22 22:13 latex [LATEX] Allergy Unknown UNKNOWN Verified 09/07/22 22:13 penicillin G Allergy Unknown Unknown Verified 09/07/22 22:13 levofloxacin [From Levaquin] Allergy Hives Verified 09/07/22 22:13 hydroxyzine AdvReac Severe restless Verified 09/07/22 22:13 legs seafood AdvReac Stomach Verified 09/03/22 20:12 Upset Review of Systems Review of Systems: Yes all other systems are reviewed and are negative [facility] Past Medical History [facility] Narrative: Social history: She smokes 3 cigarettes per day times 34 years. She denies alcohol use. She denies drug use. Patient states she is living in a [facility] however she is going to get an apartment soon. Medical History Asthma exacerbation in COPD Asthma-COPD overlap syndrome Bipolar disorder Bipolar I disorder Borderline personality disorder COPD (chronic obstructive pulmonary disease) Depression Drug abuse Herpes Intermittent explosive disorder Mass of parotid gland FABIOLA (obstructive sleep apnea) Post traumatic stress disorder (PTSD) Pseudoseizures Tobacco use Surgical History History of ankle surgery History of appendectomy History of back surgery Hx of cholecystectomy Family History Family History Mother COPD (chronic obstructive pulmonary disease) Social History Social History Household Members: None Household Members Other:: [facility] in [place] Housing: Homeless Housing Other:: Sleeps on the couch at [facility] house Do you presently have visiting nurse or other home services: No Unable to assess alcohol history related to: Unknown Alcohol intake: former Patient Tobacco Use Status: Current everyday Tobacco user Tobacco use type: Cigarette Cigarette Packs Per Day: 3 Cigarettes Per Day: 2 Years Smoked: 34 Smoked in Last 30 Days: Yes e-Cigarette/Vaping Use: Former Use Second Hand Smoke Exposure: Yes Use of substances other than those prescribed or required for medical reasons: No Substance Use Type: Crack/Cocaine Advance Directives: Yes Advance Directives on File: Yes Advance Directives Date on File: 06/17/22 Patient : No service: No Current occupational status: unemployed and disabled Sexual orientation: Straight/Heterosexual Physical Exam ED Vital Signs: Vital Signs - 24 hr 10/26/22 21:27 Temperature 98.3 F Pulse Rate 82 Respiratory Rate 22 H Blood Pressure 152/83 H Pulse Oximetry 94 Oxygen Delivery Method Room Air BMI result Body Mass Index 33.3 Const General: cooperative and no acute distress Orientation/consciousness: oriented to person and oriented to place Limitations: no limitations HENMT Head: Yes normal to inspection, Yes normocephalic and Yes atraumatic Ears: external ears normal General nose exam: Normal external nose present Face and sinus: Yes normal facial exam Mouth: Normal oral and palatal mucosa present Throat: Yes posterior oropharynx normal Eyes General: appearance normal, both eyes and all related structures Pupils: Equal, round and reactive pupils present Neck Neck: Yes normal visual inspection, Yes no lymphadenopathy, Yes trachea midline and Yes supple Chest Chest palpation & inspection: normal inspection of the chest and normal palpation of entire chest wall Resp Effort & Inspection: normal respiratory effort and able to speak in complete sentences Auscultation: clear to auscultation bilaterally Cardio Rate: regular rate Rhythm: regular rhythm Heart sounds: S1 normal heart sound present, S2 normal heart sound present and no murmurs GI Inspection: Yes normal to inspection Palpation (GI): Soft to palpation, nontender and no guarding Auscultation: normal bowel sounds General: Yes no CVA tenderness Back/Spine/Pelvis Back: no CVA tenderness Skin General skin exam: no rashes or lesions noted Neuro General: oriented to person and oriented to place Cranial nerves: Yes CN's II-XII intact bilaterally and Yes Equal, round and reactive pupils present Cognition (Neuro): normal cognition Motor exam (neuro): 5/5 motor strength present throughout Extrem General: Yes normal to inspection Psych Appearance: grossly normal Speech and movement: Normal speech and movement present Affect: normal affect Attitude: cooperative Thought process: Normal thought process present Thought content: Normal thought content present Course Course Course Narrative: 52-year-old female who presents emergency department for evaluation of altered level conscious this, the patient has a history of pseudoseizures which were triggered by stress. Patient states that she was stressed secondary to getting enough fight with 1 of the workers at the [facility] staying and this made her mad. The patient's vital signs revealed an elevated blood pressure of 152/83 and an elevated respiratory of 22 otherwise were unremarkable. Patient's physical examination was normal in her neurologic exam was nonfocal. Patient had a 12 EKG which revealed no significant abnormalities and normal QTC interval. Patient was recently here 3 days prior for similar pseudo-seizure and had a negative workup. This time I do not think that we need to repeat any blood work or do any further testing on the patient. Patient was given Ativan 2 mg orally. 2301 : Patient is feeling better. The patient will be discharged home. Medications Administered Discontinued Medications Generic Name Dose Route Start Last Admin Trade Name Jacob PRN Reason Stop Dose Admin Lorazepam 2 mg 10/26/22 21:40 10/26/22 21:57 Lorazepam 1 Mg Tablet PO 10/26/22 21:41 2 mg ONCE STA Administration Discharge Plan Discharge Clinical Impression: Pseudoseizure, Anxiety Patient Disposition: Home, Self-Care Additional Instructions: I believe that you had a pseudo-seizure this evening that was triggered by stress your treated with Ativan ( lorazepam) 2 mg orally. Continue taking your medications as prescribed by your Providers. Follow-up with your doctor in 2 days. Please return to the emergency department if your symptoms get worse or if you develop any symptoms that are concerning to you. Prescriptions: No Action albuterol sulfate 90 mcg/actuation HFA aerosol inhaler 2 puff inhalation Q4-6H PRN (Reason: shortness of breath or wheezing) 30 Days Qty: 1 0RF ferrous sulfate 324 mg (65 mg iron) tablet,delayed release (DR/EC) 324 mg PO DAILY 30 Days Qty: 30 0RF capsaicin 0.025 % cream 1 appl topical QID PRN (Reason: pain) oxcarbazepine 150 mg tablet 1 tab PO BID valacyclovir 1 gram tablet 1 tab PO BID trazodone 100 mg tablet 2 tab PO BEDTIME benztropine 1 mg tablet 1 tab PO BID omeprazole 20 mg capsule,delayed release(DR/EC) 1 cap PO DAILY@0630 sertraline 50 mg tablet 50 mg PO DAILY cholecalciferol (vitamin D3) 25 mcg (1,000 unit) tablet 1 tab PO DAILY lithium carbonate 600 mg capsule 1 cap PO BID nitroglycerin 0.4 mg tablet, sublingual 0.4 mg sublingual Q5M PRN (Reason: Chest Pain) cyanocobalamin (vitamin B-12) 100 mcg tablet 1 tab PO DAILY olanzapine 10 mg tablet 1 tab PO BEDTIME Spiriva with HandiHaler 18 mcg capsule, w/inhalation device 1 cap inhalation DAILY ropinirole 0.5 mg Tablet 0.5 mg PO BEDTIME Rx Instructions: administer 1-3 hours before bedtime nitrofurantoin 100 mg Capsule 100 mg PO Q12H Rx Instructions: must administer with a meal/food clonidine HCl 0.1 mg Tablet 0.2 mg PO BEDTIME bupropion HCl 150 mg Tablet Extended Release 24 Hr 150 mg PO QAM lithium carbonate 300 mg Capsule 300 mg PO BID nicotine 21 mg/24 hr Patch 24 Hour 21 mg transdermal DAILY Qty: 30 0RF gabapentin 400 mg capsule 1 cap PO TID
[2022-10-26] MEDS: LORazepam 1 MG TABLET 2 MG PO (21:57)
--- NOTE | 2022-10-26 22:38 | PC.NURSE ---
pt resting comfortably on stretcher at this time. pt positioned on right side. lights dimmed, no new orders
[2022-10-26 23:06] VITALS: BP 132/76; PULSE 79; RESP 21; TEMP 36.5; O2SAT 92
--- NOTE | 2022-10-26 23:23 | PC.NURSE ---
this rn discussed discharge instructions with pt. pt verbalized understanding of discharge plan. VSS. pt reports decreased anxiety at this time. pt discharged to waiting room to wait for bus in the am, ok'd by charge master specialist. pt agreeable to this plan
== END 2022-10-26 23:40 | disposition home or self-care (01) ==
PROVIDERS: Emergency Provider Emergency Medicine Emergency Medical Services; PCP Internal Medicine
DX: R56.9 Unspecified convulsions (principal); F41.9 Anxiety disorder, unspecified; F14.90 Cocaine use, unspecified, uncomplicated; F17.210 Nicotine dependence, cigarettes, uncomplicated; Z71.6 Tobacco abuse counseling; Z79.899 Other long term (current) drug therapy
CPT/HCPCS: 93005; 99283; 99284

== ENCOUNTER 2022-10-31 15:57 | Emergency (ER) | payer OTHER, MEDICAID, SELFPAY ==
--- NOTE | ~2022-10-31 | XR_ITS ---
EXAMINATION: XR CHEST CLINICAL INFORMATION: Shortness of breath COMPARISON: Chest x-ray 05/30/2022 TECHNIQUE: 2 views of the chest were obtained. FINDINGS: No significant abnormality is noted involving the heart, lungs, mediastinum, bony thorax or soft tissues. Surgical clips right upper quadrant of abdomen XR/XR chest 2V IMPRESSION: Unremarkable examination.
[2022-10-31 16:03] VITALS: BP 155/90; PULSE 89; RESP 18; TEMP 36.6; O2SAT 93; BMI 44.2
--- NOTE | 2022-10-31 16:28 | ED.PSYCH ---
HPI - Psych General Chief Complaint: Psychiatric Symptoms Stated Complaint: SI Time Seen by Provider: 10/31/22 16:10 Source: patient and EMS Mode of arrival: EMS Limitations: no limitations History of Present Illness HPI Narrative: 52 y/o female with history of borderline personality disorder, bipolar disorder, anxiety, polysubstance abuse, COPD/asthma, hx recurrent UTI who has had multiple psychiatric admissions (last was here in Jul) who presents to the ER via EMS w/ SI and anxiety. She just moved from a homeless senior living to a new apartment. She did not label any of the boxes and trying to unpack has made her very frustrated and anxious. She was frustrated to the point of sucidality. MD complaint: suicidal ideation, feels depressed and anxiety Onset (ago): hour(s) Duration: changing over time History of same: Yes Relieving factors: none Exacerbating factors: none Context: significant life stressor Associated psychiatric symptoms: depression and suicidal ideation Associated symptoms: shortness of breath Treatments prior to arrival: none If self harm: admits thoughts of self harm and has plan Details of plan: overdose Related Data Home Medications Medication Instructions Recorded Confirmed capsaicin 0.025 % topical cream 1 appl topical QID PRN pain 07/02/22 10/31/22 benztropine 1 mg tablet 1 tab PO BID 07/23/22 10/31/22 cholecalciferol (vitamin D3) 25 1 tab PO DAILY 07/23/22 10/31/22 mcg (1,000 unit) tablet omeprazole 20 mg capsule,delayed 1 cap PO DAILY@0630 07/23/22 10/31/22 release oxcarbazepine 150 mg tablet 1 tab PO BID 07/23/22 10/31/22 sertraline 50 mg tablet 50 mg PO DAILY 07/23/22 10/31/22 trazodone 100 mg tablet 2 tab PO BEDTIME 07/23/22 10/31/22 valacyclovir 1 gram tablet 1 tab PO BID 07/23/22 10/31/22 lithium carbonate 600 mg capsule 1 cap PO BID 07/24/22 10/31/22 cyanocobalamin (vitamin B-12) 100 1 tab PO DAILY 08/06/22 10/31/22 mcg tablet nitroglycerin 0.4 mg sublingual 0.4 mg sublingual Q5M PRN Chest 08/06/22 10/31/22 tablet Pain olanzapine 10 mg tablet 1 tab PO BEDTIME 08/06/22 10/31/22 bupropion HCl 150 mg 24 hr tablet, 150 mg PO QAM 09/23/22 10/31/22 extended release clonidine HCl 0.1 mg tablet 0.2 mg PO BEDTIME 09/23/22 10/31/22 gabapentin 400 mg capsule 1 cap PO TID 09/23/22 10/31/22 lithium carbonate 300 mg capsule 300 mg PO BID 09/23/22 10/31/22 nitrofurantoin 100 mg capsule 100 mg PO Q12H 09/23/22 10/31/22 ropinirole 0.5 mg tablet 0.5 mg PO BEDTIME 09/23/22 10/31/22 tiotropium bromide 18 mcg capsule 1 cap inhalation DAILY 09/23/22 10/31/22 with inhalation device (Spiriva with HandiHaler) Previous Rx's Medication Instructions Recorded albuterol sulfate 90 mcg/actuation 2 puff inhalation Q4-6H PRN 04/20/22 aerosol inhaler shortness of breath or wheezing 30 days #1 inhaler ferrous sulfate 324 mg (65 mg 324 mg PO DAILY 30 days #30 tabs 05/18/22 iron) tablet,delayed release nicotine 21 mg/24 hr daily 21 mg transdermal DAILY #30 ea 06/07/22 transdermal patch Allergies Allergy/AdvReac Type Severity Reaction Status Date / Time aspirin [Aspirin] Allergy Severe HIVES,THROAT Verified 09/07/22 22:13 SWELLS bee pollen [BEE STINGS] Allergy Severe ANAPHYLAXIS Verified 09/07/22 22:13 diphenhydramine Allergy Severe hives, Verified 09/07/22 22:13 [From BENADRYL ALLERGY] throat swells Penicillins [PCN] Allergy Severe HIVES Verified 09/07/22 22:13 THROAT SWELLS Sulfa (Sulfonamide Allergy Intermediate HIVES Verified 09/07/22 22:13 Antibiotics) [SULFA (SULFONAMIDE ANTIBIOTICS)] tramadol [TRAMADOL] Allergy Intermediate ITCHING Verified 09/07/22 22:13 latex [LATEX] Allergy Unknown UNKNOWN Verified 09/07/22 22:13 penicillin G Allergy Unknown Unknown Verified 09/07/22 22:13 levofloxacin [From Levaquin] Allergy Hives Verified 09/07/22 22:13 hydroxyzine AdvReac Severe restless Verified 09/07/22 22:13 legs seafood AdvReac Stomach Verified 09/03/22 20:12 Upset Review of Systems Review of Systems: Yes all other systems are reviewed and are negative [facility] Past Medical History Medical History Asthma exacerbation in COPD Asthma-COPD overlap syndrome Bipolar disorder Bipolar I disorder Borderline personality disorder COPD (chronic obstructive pulmonary disease) Depression Drug abuse Herpes Intermittent explosive disorder Mass of parotid gland FABIOLA (obstructive sleep apnea) Post traumatic stress disorder (PTSD) Pseudoseizures Tobacco use Surgical History History of ankle surgery History of appendectomy History of back surgery Hx of cholecystectomy Family History Family History Mother COPD (chronic obstructive pulmonary disease) Social History Social History Household Members: None Household Members Other:: Senior Living in [place] Housing: Homeless Housing Other:: Sleeps on the couch at [facility] house Do you presently have visiting nurse or other home services: No Unable to assess alcohol history related to: Unknown Alcohol intake: unknown Patient Tobacco Use Status: Current everyday Tobacco user Tobacco use type: Cigarette Cigarette Packs Per Day: 3 Cigarettes Per Day: 2 Years Smoked: 34 Smoked in Last 30 Days: No e-Cigarette/Vaping Use: Former Use Second Hand Smoke Exposure: Yes Use of substances other than those prescribed or required for medical reasons: No Substance Use Type: Crack/Cocaine Advance Directives: Yes Advance Directives on File: Yes Advance Directives Date on File: 06/17/22 Guardian: No Patient : No service: No Current occupational status: unemployed and disabled Sexual orientation: Straight/Heterosexual Physical Exam Vital Signs: Vital Signs: Last Vital Signs Temp 97.8 F 10/31/22 16:03 Pulse 89 10/31/22 16:03 Resp 18 10/31/22 16:03 BP 155/90 H 10/31/22 16:03 Pulse Ox 93 10/31/22 16:03 O2 Del Method 10/31/22 16:03 BMI result Body Mass Index 44.2 Appearance: Alert. Oriented X3. No acute distress. Eyes: Pupils equal, round and reactive to light. ENT: Pharynx normal. Neck: Normal inspection. Neck supple. CVS: Normal heart rate and rhythm. Pulses normal. Respiratory: Moderate respiratory distress. Breath sounds tight and wheezey throughout Abdomen: Obese, Soft and nontender. +BS x4 Skin: Skin warm and dry. Normal skin color. Normal skin turgor. No rashes. Extremities: No lower extremity edema. No calf tenderness. Neuro/Psych: Oriented X 3. No motor deficit. No sensory deficit. CN II-XII intact. Normal speech and cognition. makes eye contact and converses appropriately. not suicidal, anxious and stressed. good insight and judgment. Course Course Course Narrative: 52-year-old female well known to this ER with a history of borderline personality disorder, polysubstance abuse, COPD/asthma, frequent suicidality who is coming in with life stressor of moving residency to a new home. She comes from a senior living and has been homeless for quite some time. She is overwhelmed in the process of on packing her things and becoming established in the community. When laid flat in the Behavioral pot patient became acutely anxious and wheezy. Given albuterol inhaler with significant improvement. Will check chest x-ray and basic lab workup given her respiratory complaints. Will reassess. Reevaluation(s) Reevaluation #1: Wheezing significantly improved. Chest x-ray is clear. Her urinalysis is showing chronic leukocyte esterase without any symptoms. Most likely asymptomatic bacteriuria. Will hold off on treatment and follow-up the urine culture. She was seen by the care team and is deemed stable for discharge to her new home. Patient agrees with plan and would like to be discharged. Comfortable with discharge home. Medications Administered Discontinued Medications Generic Name Dose Route Start Last Admin Trade Name Freq PRN Reason Stop Dose Admin Albuterol Sulfate 4 puff 10/31/22 16:36 10/31/22 16:49 Albuterol Sulfate 90 Mcg 8 Gm Inhaler INHALE 10/31/22 16:37 4 puff ONCE ONE Administration Prednisone 50 mg 10/31/22 16:36 10/31/22 16:49 Prednisone 10 Mg Tablet PO 10/31/22 16:37 50 mg ONCE ONE Administration Medical Decision Making Differential Diagnosis Differential Diagnoses: The differential diagnosis associated with the presentation includes Adjustment disorder, anxiety, PTSD, suicidal ideation, depression, COPD exacerbation, anxiety attack Consult Healthcare Provider Management of the patient was discussed with: Behavioral Health Provider Care team recommending discharge Lab Data MDM Lab Attestation statement: I reviewed the patient's lab results. Result Diagrams: 10/31/22 17:00 10/31/22 17:00 Labs: Lab Results 10/31/22 10/31/22 10/31/22 Range/Units 16:53 16:54 16:54 WBC (4.8-10.8) X10*3/uL RBC (4.20-5.50) X10*6/uL Hgb (12.0-16.0) g/dl Hct (37.0-47.0) % MCV (80.0-98.0) fL MCH (27.0-33.0) pg MCHC (31.0-35.0) g/dl RDW (11.0-16.0) % Plt Count (160-400) X10*3/uL MPV (9.4-12.3) fL Immature Gran % (Auto) (0.0-0.4) % Neut % (Auto) (45-73) % Lymph % (Auto) (20-40) % [place] % (Auto) (2-11) % Eos % (Auto) (0-4) % Baso % (Auto) (0-2) % Lymph # (Auto) (1.2-4.9) X10*3/uL [place] # (Auto) (0.1-1.2) X10*3/uL Eos # (Auto) (0.0-0.4) X10*3/uL Baso # (Auto) (0.0-0.2) X10*3/uL Abs Immat Gran (auto) (0.00-0.03) X10*3/uL Absolute Neuts (auto) (2.0-8.3) x10*3/uL Absolute Nucleated RBC (0.0-0.012) X10*3/uL Nucleated RBC % (auto) (0.0-0.2) /100WBC Sodium (135-145) mmol/L Potassium (3.3-5.1) mmol/L Chloride (96-108) mmol/L Carbon Dioxide (22-29) mmol/L Anion Gap (12-20) BUN (9-16) mg/dL Creatinine (0.5-1.4) mg/dL Estim Creat Clear Calc Estimated GFR Random Glucose (60-115) mg/dL Calcium (8.4-10.2) mg/dL Magnesium (1.6-2.6) mg/dL Total Bilirubin (0.0-1.0) mg/dL Direct Bilirubin (0.0-0.5) mg/dL AST (5-31) U/L ALT (0-31) U/L Alkaline Phosphatase (39-117) U/L B-Natriuretic Peptide (<100) pg/mL Total Protein (6.5-8.0) g/dL Albumin (3.5-5.0) g/dL Urine Color Yellow Urine Appearance Cloudy Urine pH 7.0 (5.0-9.0) Ur Specific Commodore 1.020 (1.005-1.025) Urine Protein Trace (Neg-Trace) mg/dL Urine Glucose (UA) Negative (Negative) mg/dL Urine Ketones Negative (Negative) mg/dL Urine Blood Negative (Negative) Urine Nitrite Negative (Negative) Ur Leukocyte Esterase Large (3+) H (Negative) Urine RBC 0-2 (0-2) /HPF Urine WBC 21-50 H (0-5) /HPF Ur Squamous Epith Cells 11-20 (0-2) /HPF Urine Bacteria 3+ (None Seen) Hyaline Casts 0-2 (0-2) /LPF Urine Opiates Screen Not Detected (Not Detect) Urine Fentanyl Screen Not Detected (Not Detect) Ur Barbiturates Screen Not Detected (Not Detect) Ur Phencyclidine Scrn Not Detected (Not Detect) Ur Amphetamines Screen Not Detected (Not Detect) U Benzodiazepines Scrn Not Detected (Not Detect) Urine Cocaine Screen Not Detected (Not Detect) U Marijuana (THC) Screen Not Detected (Not Detect) COVID-19 (ENDY) Negative (Negative) COVID-19 Clin Com See Note Influenza Type A (PCR) (Negative) Influenza Type B (PCR) (Negative) RSV RNA Qual (PCR) (Negative) SARS-CoV-2 RNA (RT-PCR) (Negative) 10/31/22 10/31/22 10/31/22 Range/Units 16:54 17:00 17:00 WBC 7.5 (4.8-10.8) X10*3/uL RBC 4.44 (4.20-5.50) X10*6/uL Hgb 13.1 (12.0-16.0) g/dl Hct 40.6 (37.0-47.0) % MCV 91.4 (80.0-98.0) fL MCH 29.5 (27.0-33.0) pg MCHC 32.3 (31.0-35.0) g/dl RDW 12.4 (11.0-16.0) % Plt Count 282 (160-400) X10*3/uL MPV 10.1 (9.4-12.3) fL Immature Gran % (Auto) 0.3 (0.0-0.4) % Neut % (Auto) 48.6 (45-73) % Lymph % (Auto) 42.3 H (20-40) % [place] % (Auto) 6.4 (2-11) % Eos % (Auto) 1.5 (0-4) % Baso % (Auto) 0.9 (0-2) % Lymph # (Auto) 3.2 (1.2-4.9) X10*3/uL [place] # (Auto) 0.5 (0.1-1.2) X10*3/uL Eos # (Auto) 0.1 (0.0-0.4) X10*3/uL Baso # (Auto) 0.1 (0.0-0.2) X10*3/uL Abs Immat Gran (auto) 0.02 (0.00-0.03) X10*3/uL Absolute Neuts (auto) 3.7 (2.0-8.3) x10*3/uL Absolute Nucleated RBC 0.000 (0.0-0.012) X10*3/uL Nucleated RBC % (auto) 0.0 (0.0-0.2) /100WBC Sodium 142 (135-145) mmol/L Potassium 3.8 (3.3-5.1) mmol/L Chloride 105 (96-108) mmol/L Carbon Dioxide 30 H (22-29) mmol/L Anion Gap 11 L (12-20) BUN 12 (9-16) mg/dL Creatinine 0.67 (0.5-1.4) mg/dL Estim Creat Clear Calc 120.4 Estimated GFR > 60 Random Glucose 107 (60-115) mg/dL Calcium 9.9 (8.4-10.2) mg/dL Magnesium 1.7 (1.6-2.6) mg/dL Total Bilirubin 0.2 (0.0-1.0) mg/dL Direct Bilirubin < 0.2 (0.0-0.5) mg/dL AST 17 (5-31) U/L ALT 20 (0-31) U/L Alkaline Phosphatase 77 (39-117) U/L B-Natriuretic Peptide (<100) pg/mL Total Protein 6.7 (6.5-8.0) g/dL Albumin 4.4 (3.5-5.0) g/dL Urine Color Urine Appearance Urine pH (5.0-9.0) Ur Specific Commodore (1.005-1.025) Urine Protein (Neg-Trace) mg/dL Urine Glucose (UA) (Negative) mg/dL Urine Ketones (Negative) mg/dL Urine Blood (Negative) Urine Nitrite (Negative) Ur Leukocyte Esterase (Negative) Urine RBC (0-2) /HPF Urine WBC (0-5) /HPF Ur Squamous Epith Cells (0-2) /HPF Urine Bacteria (None Seen) Hyaline Casts (0-2) /LPF Urine Opiates Screen (Not Detect) Urine Fentanyl Screen (Not Detect) Ur Barbiturates Screen (Not Detect) Ur Phencyclidine Scrn (Not Detect) Ur Amphetamines Screen (Not Detect) U Benzodiazepines Scrn (Not Detect) Urine Cocaine Screen (Not Detect) U Marijuana (THC) Screen (Not Detect) COVID-19 (ENDY) (Negative) COVID-19 Clin Com Influenza Type A (PCR) NEGATIVE (Negative) Influenza Type B (PCR) NEGATIVE (Negative) RSV RNA Qual (PCR) NEGATIVE (Negative) SARS-CoV-2 RNA (RT-PCR) NEGATIVE (Negative) 10/31/22 Range/Units 17:00 WBC (4.8-10.8) X10*3/uL RBC (4.20-5.50) X10*6/uL Hgb (12.0-16.0) g/dl Hct (37.0-47.0) % MCV (80.0-98.0) fL MCH (27.0-33.0) pg MCHC (31.0-35.0) g/dl RDW (11.0-16.0) % Plt Count (160-400) X10*3/uL MPV (9.4-12.3) fL Immature Gran % (Auto) (0.0-0.4) % Neut % (Auto) (45-73) % Lymph % (Auto) (20-40) % [place] % (Auto) (2-11) % Eos % (Auto) (0-4) % Baso % (Auto) (0-2) % Lymph # (Auto) (1.2-4.9) X10*3/uL [place] # (Auto) (0.1-1.2) X10*3/uL Eos # (Auto) (0.0-0.4) X10*3/uL Baso # (Auto) (0.0-0.2) X10*3/uL Abs Immat Gran (auto) (0.00-0.03) X10*3/uL Absolute Neuts (auto) (2.0-8.3) x10*3/uL Absolute Nucleated RBC (0.0-0.012) X10*3/uL Nucleated RBC % (auto) (0.0-0.2) /100WBC Sodium (135-145) mmol/L Potassium (3.3-5.1) mmol/L Chloride (96-108) mmol/L Carbon Dioxide (22-29) mmol/L Anion Gap (12-20) BUN (9-16) mg/dL Creatinine (0.5-1.4) mg/dL Estim Creat Clear Calc Estimated GFR Random Glucose (60-115) mg/dL Calcium (8.4-10.2) mg/dL Magnesium (1.6-2.6) mg/dL Total Bilirubin (0.0-1.0) mg/dL Direct Bilirubin (0.0-0.5) mg/dL AST (5-31) U/L ALT (0-31) U/L Alkaline Phosphatase (39-117) U/L B-Natriuretic Peptide 88 (<100) pg/mL Total Protein (6.5-8.0) g/dL Albumin (3.5-5.0) g/dL Urine Color Urine Appearance Urine pH (5.0-9.0) Ur Specific Commodore (1.005-1.025) Urine Protein (Neg-Trace) mg/dL Urine Glucose (UA) (Negative) mg/dL Urine Ketones (Negative) mg/dL Urine Blood (Negative) Urine Nitrite (Negative) Ur Leukocyte Esterase (Negative) Urine RBC (0-2) /HPF Urine WBC (0-5) /HPF Ur Squamous Epith Cells (0-2) /HPF Urine Bacteria (None Seen) Hyaline Casts (0-2) /LPF Urine Opiates Screen (Not Detect) Urine Fentanyl Screen (Not Detect) Ur Barbiturates Screen (Not Detect) Ur Phencyclidine Scrn (Not Detect) Ur Amphetamines Screen (Not Detect) U Benzodiazepines Scrn (Not Detect) Urine Cocaine Screen (Not Detect) U Marijuana (THC) Screen (Not Detect) COVID-19 (ENDY) (Negative) COVID-19 Clin Com Influenza Type A (PCR) (Negative) Influenza Type B (PCR) (Negative) RSV RNA Qual (PCR) (Negative) SARS-CoV-2 RNA (RT-PCR) (Negative) Independent Interpretation I performed an independent interpretation of an: Plain X-Ray Interpretation: No evidence of pneumonia no focal infiltrate Radiology Impression Discussion of test interpretation with radiology: I have reviewed the radiologist's reading. Radiologist Impression: Chest [id number] examination. Independent Historian Clinical information obtained from an independent historian. History obtained from or confirmed by: EMS External Record Review External record reviewed: Inpatient record, Outpatient record and Prior outpatient labs Prescription Management I considered prescription management with: Antibiotic UA with chronic leukocyte esterase, asymptomatic, most likely asymptomatic bacteriuria. Social Determinants Patient?s care significantly limited by Social Determinants of Health including: Inadequate housing, Low income, Alcoholism and drug addiction in family, Problems related to primary support group, Unemployment and Other Social Determinant of Health Discharge Plan Discharge Clinical Impression: Anxiety, Asymptomatic bacteriuria Patient Disposition: Home, Self-Care Instructions: Anxiety (ED) Additional Instructions: Take all medications as prescribed. Follow-up with your therapist, psychiatrist, and provider as soon as possible. Recommend unpacking your belongings slowly as to not overwhelm yourself. Prescriptions: No Action albuterol sulfate 90 mcg/actuation HFA aerosol inhaler 2 puff inhalation Q4-6H PRN (Reason: shortness of breath or wheezing) 30 Days Qty: 1 0RF ferrous sulfate 324 mg (65 mg iron) tablet,delayed release (DR/EC) 324 mg PO DAILY 30 Days Qty: 30 0RF capsaicin 0.025 % cream 1 appl topical QID PRN (Reason: pain) oxcarbazepine 150 mg tablet 1 tab PO BID valacyclovir 1 gram tablet 1 tab PO BID trazodone 100 mg tablet 2 tab PO BEDTIME benztropine 1 mg tablet 1 tab PO BID omeprazole 20 mg capsule,delayed release(DR/EC) 1 cap PO DAILY@0630 sertraline 50 mg tablet 50 mg PO DAILY cholecalciferol (vitamin D3) 25 mcg (1,000 unit) tablet 1 tab PO DAILY lithium carbonate 600 mg capsule 1 cap PO BID nitroglycerin 0.4 mg tablet, sublingual 0.4 mg sublingual Q5M PRN (Reason: Chest Pain) cyanocobalamin (vitamin B-12) 100 mcg tablet 1 tab PO DAILY olanzapine 10 mg tablet 1 tab PO BEDTIME Spiriva with HandiHaler 18 mcg capsule, w/inhalation device 1 cap inhalation DAILY ropinirole 0.5 mg Tablet 0.5 mg PO BEDTIME Rx Instructions: administer 1-3 hours before bedtime nitrofurantoin 100 mg Capsule 100 mg PO Q12H Rx Instructions: must administer with a meal/food clonidine HCl 0.1 mg Tablet 0.2 mg PO BEDTIME bupropion HCl 150 mg Tablet Extended Release 24 Hr 150 mg PO QAM lithium carbonate 300 mg Capsule 300 mg PO BID nicotine 21 mg/24 hr Patch 24 Hour 21 mg transdermal DAILY Qty: 30 0RF gabapentin 400 mg capsule 1 cap PO TID Interventions: [place]-Suicide Risk Severity Scale Last Done: 10/31/22 16:07 ED Discharge Assessment Last Done: 10/31/22 21:00 Discharge Date/Time: 10/31/22 21:16
[2022-10-31] MEDS: Albuterol Sulfate 90 MCG 8 GM INHALER 4 PUFF INHALE (16:49)
[2022-10-31] MEDS: predniSONE 10 MG TABLET 50 MG PO (16:49)
[2022-10-31 17:10] LABS: MANUAL DIFF FLAG NO
[2022-10-31 17:14] LABS: Basophils Absolute Auto 0.1 X10*3/uL (0.0-0.2); Basophils Percent Auto 0.9 % (0-2); Eosinophils Absolute Auto 0.1 X10*3/uL (0.0-0.4); Eosinophils Percent Auto 1.5 % (0-4); Hematocrit 40.6 % (37.0-47.0); Hemoglobin 13.1 g/dl (12.0-16.0); Imm Gran Abs Auto 0.02 X10*3/uL (0.00-0.03); Imm Gran Pct Auto 0.3 % (0.0-0.4); Lymphocytes Absolute Auto 3.2 X10*3/uL (1.2-4.9); Lymphocytes Percent Auto 42.3 % (20-40); Mean Corpuscular HGB Conc 32.3 g/dl (31.0-35.0); Mean Corpuscular Hemoglobin 29.5 pg (27.0-33.0); Mean Corpuscular Volume 91.4 fL (80.0-98.0); Mean Platelet Volume 10.1 fL (9.4-12.3); Monocytes Absolute Auto 0.5 X10*3/uL (0.1-1.2); Monocytes Percent Auto 6.4 % (2-11); Neutrophils Absolute Auto 3.7 x10*3/uL (2.0-8.3); Neutrophils Percent Auto 48.6 % (45-73); Platelet Count 282 X10*3/uL (160-400); Red Blood Count 4.44 X10*6/uL (4.20-5.50); Red Cell Distribution Width 12.4 % (11.0-16.0); White Blood Count 7.5 X10*3/uL (4.8-10.8)
[2022-10-31 17:16] LABS: Appearance Urine Cloudy; Color Urine Yellow; Glucose Urine UA Negative (Negative); Leukocyte Esterase Urine Large (3+) (Negative); Nitrite Urine Negative (Negative); UMIC TRIGGER UACC YES; Urine Blood Negative (Negative); Urine Ketones Negative (Negative); Urine Protein Trace mg/dL (Neg-Trace)
[2022-10-31 17:24] LABS: Amphetamine Screen Urine Not Detected (Not Detect); Barbiturates, Urine Not Detected (Not Detect); Benzodiazepines Screen Urine Not Detected (Not Detect); Cannabinoid Screen Urine Not Detected (Not Detect); Cocaine Screen Urine Not Detected (Not Detect); Fentanyl, urine Not Detected (Not Detect); Opiate Screen Urine Not Detected (Not Detect); Phencyclidine Screen Urine Not Detected (Not Detect)
[2022-10-31 17:27] LABS: Bacteria Urine 3+ (None Seen); Hyaline Casts Urine 0-2 /LPF (0-2); RBC Urine 0-2 /HPF (0-2); UACC Culture Trigger YES; WBC Urine 21-50 /HPF (0-5)
[2022-10-31 17:28] LABS: Alanine Aminotransferase 20 U/L (0-31); Albumin Level 4.4 g/dL (3.5-5.0); Alkaline Phosphatase 77 U/L (39-117); Anion Gap 11 (12-20); Aspartate Amino Transferase 17 U/L (5-31); Bilirubin Direct < 0.2 mg/dL (0.0-0.5); Bilirubin Total 0.2 mg/dL (0.0-1.0); Blood Urea Nitrogen 12 mg/dL (9-16); Calcium 9.9 mg/dL (8.4-10.2); Carbon Dioxide 30 mmol/L (22-29); Chloride 105 mmol/L (96-108); Creatinine Clr Calc Pharmacy 120.4; Estimated Glomerular Filt Rate > 60; Glucose Random 107 mg/dL (60-115); Magnesium 1.7 mg/dL (1.6-2.6); Potassium 3.8 mmol/L (3.3-5.1); Sodium 142 mmol/L (135-145); Total Protein 6.7 g/dL (6.5-8.0)
[2022-10-31 17:33] LABS: B Type Natriuretic Peptide 88 pg/mL (<100)
[2022-10-31 17:51] LABS: Influenza A PCR NEGATIVE (Negative); Influenza B PCR NEGATIVE (Negative); Resp Syncy Virus RNA Qual PCR NEGATIVE (Negative); SARS COV2 PCR INHOUSE NEGATIVE (Negative)
[2022-10-31 18:05] LABS: COVID-19 Test Negative (Negative); IDNOW Serial# BCCEAD1C
== END 2022-10-31 21:16 | disposition home or self-care (01) ==
PROVIDERS: Physician Assistant; Emergency Provider Emergency Medicine; PCP Internal Medicine
DX: F33.1 Major depressive disorder, recurrent, moderate (principal); R45.851 Suicidal ideations; R06.02 Shortness of breath; F41.9 Anxiety disorder, unspecified; R82.71 Bacteriuria; F17.210 Nicotine dependence, cigarettes, uncomplicated; Z71.6 Tobacco abuse counseling; Z20.822 Contact with and (suspected) exposure to COVID-19; Z79.899 Other long term (current) drug therapy
CPT/HCPCS: 0241U; 36415; 71046; 80048; 80076; 80307; 81001; 83735; 83880; 85025; 87086; 87635; 99284; S9485

== ENCOUNTER 2022-11-17 12:03 | Emergency (ER) | payer MEDICAID, SELFPAY ==
--- NOTE | ~2022-11-17 | XR_ITS ---
EXAMINATION: XR HIP, LEFT CLINICAL INFORMATION: Fall with pain COMPARISON: July 13, 2022 TECHNIQUE: AP film of pelvis and 2 views of the left hip. of the left hip. FINDINGS: There is no evidence of acute fracture or diastases of the pelvis. Hip joint spaces appear maintained. Sacroiliac joints appear unremarkable. There is degenerative disc disease with facet arthropathy seen L4-S1. There is no evidence of acute fracture or dislocation of the left hip. Left hip joint space is maintained without significant spurring identified. No abnormal lytic or sclerotic lesions about the femoral head is seen. There is mild spurring about the greater trochanter. XR/XR hip LT w PEL1V IMPRESSION: Lumbar spondylosis L4-S1. No acute fracture or diastases of the pelvis. No significant bony abnormality of the left hip identified.
[2022-11-17 12:11] VITALS: BP 142/68; BP 156/86; PULSE 77; PULSE 82; RESP 20; TEMP 36.9; O2SAT 96; BMI 29.9
--- NOTE | 2022-11-17 12:26 | ED_ITS ---
HPI - General Adult General Chief complaint: Fall Stated complaint: LEG/ HIP PAIN, FALL, SEIZURE LAST NIGHT Time Seen by Provider: 11/17/22 12:26 Source: patient and EMS Mode of arrival: EMS Limitations: no limitations History of Present Illness HPI narrative: Patient is a 52 year old assigned female at with a history of COPD presenting to the emergency department today with left hip pain. Patient states that she fell out of bed last night and landed on her left side and is having left hip pain. Patient denies hitting hear head during the incident. Patient denies any loss of consciousness. Patient denies any dizziness, lightheadedness, abdominal pain, nausea, vomiting, fever, chills, blurry vision, double vision, loss of vision, chest pain, difficulty breathing, shortness of breath, back pain, night sweats, pain with urination, increased urinary frequency, increased urinary urgency, blood in her urine or stool, syncope or a near syncopal episode, bowel incontinence, bladder incontinence, bowel retention, bladder retention, or any other complaints at this time. Location: left (hip) Radiation: non-radiation Severity: mild Severity scale (1-10): 2 Quality: aching and dull Pain Consistency: constant Relieving factors: none Exacerbating factors: none Associated symptoms: denies other symptoms Treatments prior to arrival: none Related Data Home Medications Medication Instructions Recorded Confirmed capsaicin 0.025 % topical cream 1 appl topical QID PRN pain 07/02/22 10/31/22 benztropine 1 mg tablet 1 tab PO BID 07/23/22 10/31/22 cholecalciferol (vitamin D3) 25 1 tab PO DAILY 07/23/22 10/31/22 mcg (1,000 unit) tablet omeprazole 20 mg capsule,delayed 1 cap PO DAILY@0630 07/23/22 10/31/22 release oxcarbazepine 150 mg tablet 1 tab PO BID 07/23/22 10/31/22 sertraline 50 mg tablet 50 mg PO DAILY 07/23/22 10/31/22 trazodone 100 mg tablet 2 tab PO BEDTIME 07/23/22 10/31/22 valacyclovir 1 gram tablet 1 tab PO BID 07/23/22 10/31/22 lithium carbonate 600 mg capsule 1 cap PO BID 07/24/22 10/31/22 cyanocobalamin (vitamin B-12) 100 1 tab PO DAILY 08/06/22 10/31/22 mcg tablet nitroglycerin 0.4 mg sublingual 0.4 mg sublingual Q5M PRN Chest 08/06/22 10/31/22 tablet Pain olanzapine 10 mg tablet 1 tab PO BEDTIME 08/06/22 10/31/22 bupropion HCl 150 mg 24 hr tablet, 150 mg PO QAM 09/23/22 10/31/22 extended release clonidine HCl 0.1 mg tablet 0.2 mg PO BEDTIME 09/23/22 10/31/22 gabapentin 400 mg capsule 1 cap PO TID 09/23/22 10/31/22 lithium carbonate 300 mg capsule 300 mg PO BID 09/23/22 10/31/22 nitrofurantoin 100 mg capsule 100 mg PO Q12H 09/23/22 10/31/22 ropinirole 0.5 mg tablet 0.5 mg PO BEDTIME 09/23/22 10/31/22 tiotropium bromide 18 mcg capsule 1 cap inhalation DAILY 09/23/22 10/31/22 with inhalation device (Spiriva with HandiHaler) Previous Rx's Medication Instructions Recorded albuterol sulfate 90 mcg/actuation 2 puff inhalation Q4-6H PRN 04/20/22 aerosol inhaler shortness of breath or wheezing 30 days #1 inhaler ferrous sulfate 324 mg (65 mg 324 mg PO DAILY 30 days #30 tabs 05/18/22 iron) tablet,delayed release nicotine 21 mg/24 hr daily 21 mg transdermal DAILY #30 ea 06/07/22 transdermal patch Allergies Allergy/AdvReac Type Severity Reaction Status Date / Time aspirin [Aspirin] Allergy Severe HIVES,THROAT Verified 09/07/22 22:13 SWELLS bee pollen [BEE STINGS] Allergy Severe ANAPHYLAXIS Verified 09/07/22 22:13 diphenhydramine Allergy Severe hives, Verified 09/07/22 22:13 [From BENADRYL ALLERGY] throat swells Penicillins [PCN] Allergy Severe HIVES Verified 09/07/22 22:13 THROAT SWELLS Sulfa (Sulfonamide Allergy Intermediate HIVES Verified 09/07/22 22:13 Antibiotics) [SULFA (SULFONAMIDE ANTIBIOTICS)] tramadol [TRAMADOL] Allergy Intermediate ITCHING Verified 09/07/22 22:13 latex [LATEX] Allergy Unknown UNKNOWN Verified 09/07/22 22:13 penicillin G Allergy Unknown Unknown Verified 09/07/22 22:13 levofloxacin [From Levaquin] Allergy Hives Verified 09/07/22 22:13 hydroxyzine AdvReac Severe restless Verified 09/07/22 22:13 legs seafood AdvReac Stomach Verified 09/03/22 20:12 Upset Review of Systems Constitutional: Constitutional: Reports no additional constitutional complaints, Denies chills, Denies fever(s) and Denies night sweats Eyes: Eyes: Reports no additional eye complaints, Denies blurry vision, Denies change in vision, Denies diplopia, Denies eye discharge, Denies loss of vision and Denies eye pain ENT: Denies dizziness Cardiovascular: Cardiovascular: Reports no additional cardiovascular complaints, Denies chest pain, Denies lightheadedness, Denies Loss of Consciousness and Denies dyspnea Respiratory: Respiratory: Reports no additional respiratory complaints and Denies dyspnea Gastrointestinal: Gastrointestinal: Reports no additional gastrointestinal complaints, Denies abdominal pain, Denies melena, Denies hematochezia, Denies change in bowel habits and Denies change in stool character Genitourinary: Genitourinary: Denies hematuria, Denies urinary frequency, Denies dysuria, Denies urinary incontinence, Denies urinary hesitancy and Denies urinary urgency Musculoskeletal: Musculoskeletal: Reports no additional musculoskeletal complaints, Denies numbness and Denies tingling Comments: left hip pain Neurologic: Denies dizziness, Denies loss of vision, Denies numbness and Denies tingling Psychiatric: Psychiatric: Reports no additional psychiatric complaints Endocrine: Endocrine: Reports no additional endocrine complaints Hematologic/Lymphatic: Hematologic/Lymphatic: Reports no additional hematologic/lymphatic complaints Allergic/Immunologic: Allergic/Immunologic: Reports no additional allergic/immunologic complaints FORMERLY [facility], 1928–1983 Past Medical History Attestation statement: The following information was validated with the patient. Source: old records reviewed and nursing notes reviewed Medical History Asthma exacerbation in COPD Asthma-COPD overlap syndrome Bipolar disorder Bipolar I disorder Borderline personality disorder COPD (chronic obstructive pulmonary disease) Depression Drug abuse Herpes Intermittent explosive disorder Mass of parotid gland FABIOLA (obstructive sleep apnea) Post traumatic stress disorder (PTSD) Pseudoseizures Tobacco use Surgical History History of ankle surgery History of appendectomy History of back surgery Hx of cholecystectomy Family History Family History Mother COPD (chronic obstructive pulmonary disease) Social History Social History Household Members: None Household Members Other:: [facility] in [place] Housing: Homeless Housing Other:: Sleeps on the couch at [facility] house Do you presently have visiting nurse or other home services: No Unable to assess alcohol history related to: Unknown Alcohol intake: unknown Patient Tobacco Use Status: Current everyday Tobacco user Tobacco use type: Cigarette Cigarette Packs Per Day: 3 Cigarettes Per Day: 2 Years Smoked: 34 e-Cigarette/Vaping Use: Former Use Second Hand Smoke Exposure: Yes Substance Use Type: Crack/Cocaine Advance Directives: Yes Advance Directives on File: Yes Advance Directives Date on File: 06/17/22 Patient : No service: No Current occupational status: unemployed and disabled Sexual orientation: Straight/Heterosexual Physical Exam ED Vital Signs: Vital Signs - 24 hr 11/17/22 12:11 11/17/22 13:58 Temperature 98.5 F Pulse Rate 77 73 Respiratory Rate 20 16 Blood Pressure 142/68 H 137/75 Pulse Oximetry 96 95 Oxygen Delivery Method Room Air Room Air BMI result Body Mass Index 29.9 Const General: cooperative, no acute distress, alert and awake Nutritional Appearance: well nourished Orientation/consciousness: patient oriented x3 Limitations: no limitations HENMT Head: Yes normal to inspection and Yes atraumatic Ears: hearing grossly normal bilaterally and external ears normal General nose exam: Normal external nose present, no nasal discharge noted and no epistaxis Face and sinus: Yes normal facial exam, No abrasion and No laceration Mouth: Normal oral and palatal mucosa present, no drooling and no muffled voice Eyes General: appearance normal, both eyes and all related structures Periorbital: periorbital findings normal Eyelids: Yes eyelids normal Conjunctivae: conjunctivae normal Pupils: Equal, round and reactive pupils present EOM: EOMs intact bilaterally Neck Neck: Yes normal visual inspection, Yes full ROM and Yes no lymphadenopathy Chest Chest palpation & inspection: normal inspection of the chest Resp Effort & Inspection: normal respiratory effort and able to speak in complete sentences Auscultation: clear to auscultation bilaterally Cardio Rate: regular rate Rhythm: regular rhythm GI Inspection: Yes normal to inspection Palpation (GI): Soft to palpation, not firm, nontender, no guarding and not rig id Neuro General: patient oriented x3 and moves all extremities Cranial nerves: Yes Equal, round and reactive pupils present Cognition (Neuro): normal cognition Motor exam (neuro): 5/5 motor strength present throughout Sensory Exam: Normal double simultaneous stimulation for sensation Coordination: [id number] test normal Extrem General: Yes normal to inspection, Yes full ROM and Yes capillary refill normal Psych Appearance: grossly normal Mental Status: mental status grossly normal Affect: normal affect Attitude: cooperative Thought process: Normal thought process present Thought content: Normal thought content present Insight: Good insight present (Psych) Medical Decision Making Medical Decision Making MDM Narrative: Patient is a 52 year old assigned female at with a history of COPD presenting to the emergency department today with left hip pain. Patient's physical exam was unremarkable. Patient's left hip x-ray showed no acute process. I explained my physical exam findings as well as all test results to the patient. I answered all questions asked by the patient. I stressed the importance of the patient taking her medication as prescribed. I stressed the importance of the patient following up with her primary care provider. I stressed the importance of the patient returning to the emergency department immediately if her symptoms were to worsen or if she were to develop any dizziness, shortness of breath, difficulty breathing, chest pain, blurry vision, loss of vision, nausea, vomiting, abdominal pain, fever, chills, back pain, or any other complaints. Patient verbalized agreement and understanding with this treatment plan and discharge. Differential Diagnosis Differential Diagnoses: The differential diagnosis associated with the presentation includes left hip pain Radiology Impression Discussion of test interpretation with radiology: I have reviewed the radiologist's reading. Radiologist Impression: My interpretation is in agreement with the radiologist's impression of this imaging study. EXAMINATION: XR HIP, LEFT CLINICAL INFORMATION: Fall with pain COMPARISON: July 13, 2022 TECHNIQUE: AP film of pelvis and 2 views of the left hip. of the left hip. FINDINGS: There is no evidence of acute fracture or diastases of the pelvis. Hip joint spaces appear maintained. Sacroiliac joints appear unremarkable. There is degenerative disc disease with facet arthropathy seen L4-S1. There is no evidence of acute fracture or dislocation of the left hip. Left hip joint space is maintained without significant spurring identified. No abnormal lytic or sclerotic lesions about the femoral head is seen. There is mild spurring about the greater trochanter. XR/XR hip LT w PEL1V IMPRESSION: Lumbar spondylosis L4-S1. ? No acute fracture or diastases of the pelvis. ? No significant bony abnormality of the left hip identified. Dictated By: Ronald Meehan MD Signed By: Electronically signed by Ronald Meehan MD 11/17/22 [id number] Independent Historian Clinical information obtained from an independent historian. History obtained from or confirmed by: EMS Discharge Plan Discharge Clinical Impression: Hip pain Patient Disposition: Home, Self-Care Instructions: Hip Pain (ED) Prescriptions: No Action albuterol sulfate 90 mcg/actuation HFA aerosol inhaler 2 puff inhalation Q4-6H PRN (Reason: shortness of breath or wheezing) 30 Days Qty: 1 0RF ferrous sulfate 324 mg (65 mg iron) tablet,delayed release (DR/EC) 324 mg PO DAILY 30 Days Qty: 30 0RF capsaicin 0.025 % cream 1 appl topical QID PRN (Reason: pain) oxcarbazepine 150 mg tablet 1 tab PO BID valacyclovir 1 gram tablet 1 tab PO BID trazodone 100 mg tablet 2 tab PO BEDTIME benztropine 1 mg tablet 1 tab PO BID omeprazole 20 mg capsule,delayed release(DR/EC) 1 cap PO DAILY@0630 sertraline 50 mg tablet 50 mg PO DAILY cholecalciferol (vitamin D3) 25 mcg (1,000 unit) tablet 1 tab PO DAILY lithium carbonate 600 mg capsule 1 cap PO BID nitroglycerin 0.4 mg tablet, sublingual 0.4 mg sublingual Q5M PRN (Reason: Chest Pain) cyanocobalamin (vitamin B-12) 100 mcg tablet 1 tab PO DAILY olanzapine 10 mg tablet 1 tab PO BEDTIME Spiriva with HandiHaler 18 mcg capsule, w/inhalation device 1 cap inhalation DAILY ropinirole 0.5 mg Tablet 0.5 mg PO BEDTIME Rx Instructions: administer 1-3 hours before bedtime nitrofurantoin 100 mg Capsule 100 mg PO Q12H Rx Instructions: must administer with a meal/food clonidine HCl 0.1 mg Tablet 0.2 mg PO BEDTIME bupropion HCl 150 mg Tablet Extended Release 24 Hr 150 mg PO QAM lithium carbonate 300 mg Capsule 300 mg PO BID nicotine 21 mg/24 hr Patch 24 Hour 21 mg transdermal DAILY Qty: 30 0RF gabapentin 400 mg capsule 1 cap PO TID Referrals: Mike Malone MD [Primary Care Provider] - Interventions: ED Discharge Assessment Last Done: 11/17/22 14:53 Discharge Date/Time: 11/17/22 14:54 Print Language: Croatian
[2022-11-17 13:58] VITALS: BP 137/75; PULSE 73; RESP 16; O2SAT 95
--- NOTE | 2022-11-17 13:59 | PC.NURSE ---
Patient ambulating independently with walker to bathroom
== END 2022-11-17 14:54 | disposition home or self-care (01) ==
PROVIDERS: Emergency Provider Emergency Medicine; PCP Internal Medicine
DX: M25.552 Pain in left hip (principal); F60.3 Borderline personality disorder; F17.200 Nicotine dependence, unspecified, uncomplicated; F14.10 Cocaine abuse, uncomplicated; Z79.899 Other long term (current) drug therapy
CPT/HCPCS: 73502; 99283; 99284

== ENCOUNTER 2022-11-23 15:40 | Emergency (ER) | payer MEDICAID, OTHER, SELFPAY ==
--- NOTE | 2022-11-23 | ECG_ITS ---
Test Reason : SHORTNESS OF BREATH Blood Pressure : / mmHG Vent. Rate : 084 BPM Atrial Rate : 084 BPM P-R Int : 132 ms QRS Dur : 082 ms QT Int : 356 ms P-R-T Axes : 003 018 014 degrees QTc Int : 420 ms Normal sinus rhythm Normal ECG When compared with ECG of 26-OCT-2022 21:19, T wave inversion no longer evident in Anterior leads Referred By: Generic ED Physician Electronically Signed By:ALEJANDRO MCCLELLAN
--- NOTE | ~2022-11-23 | XR_ITS ---
EXAMINATION: XR CHEST CLINICAL INFORMATION: Shortness of breath COMPARISON: 10/31/2022 TECHNIQUE: Frontal view of the chest was obtained. FINDINGS: No significant abnormality is noted involving the heart, lungs, mediastinum, bony thorax or soft tissues. XR/XR chest 1V IMPRESSION: Unremarkable examination.
[2022-11-23 15:54] VITALS: BP 117/77; PULSE 80; RESP 16; TEMP 36.8; O2SAT 94; BMI 29.0
--- NOTE | 2022-11-23 17:12 | ED.PSYCH ---
HPI - Psych General Chief Complaint: Psychiatric Symptoms Stated Complaint: SOB Time Seen by Provider: 11/23/22 17:02 Source: patient Mode of arrival: EMS Limitations: no limitations History of Present Illness HPI Narrative: Patient comes to emergency room complaining of asthma and suicidal ideation. Patient states that her asthma has been acting up for a few days. Also, patient states that she is planning to jump off a bridge. EMS gave the patient couple of dual nebs. Patient states that she feels better but not 100%. Denies any chest pain. Patient states that she has been under a lot of stress, she is about to start radiation therapy for her neck in 2 weeks and is causing her a lot of anxiety/depression. Related Data Home Medications Medication Instructions Recorded Confirmed capsaicin 0.025 % topical cream 1 appl topical QID PRN pain 07/02/22 10/31/22 benztropine 1 mg tablet 1 tab PO BID 07/23/22 10/31/22 cholecalciferol (vitamin D3) 25 1 tab PO DAILY 07/23/22 10/31/22 mcg (1,000 unit) tablet omeprazole 20 mg capsule,delayed 1 cap PO DAILY@0630 07/23/22 10/31/22 release oxcarbazepine 150 mg tablet 1 tab PO BID 07/23/22 10/31/22 sertraline 50 mg tablet 50 mg PO DAILY 07/23/22 10/31/22 trazodone 100 mg tablet 2 tab PO BEDTIME 07/23/22 10/31/22 valacyclovir 1 gram tablet 1 tab PO BID 07/23/22 10/31/22 lithium carbonate 600 mg capsule 1 cap PO BID 07/24/22 10/31/22 cyanocobalamin (vitamin B-12) 100 1 tab PO DAILY 08/06/22 10/31/22 mcg tablet nitroglycerin 0.4 mg sublingual 0.4 mg sublingual Q5M PRN Chest 08/06/22 10/31/22 tablet Pain olanzapine 10 mg tablet 1 tab PO BEDTIME 08/06/22 10/31/22 bupropion HCl 150 mg 24 hr tablet, 150 mg PO QAM 09/23/22 10/31/22 extended release clonidine HCl 0.1 mg tablet 0.2 mg PO BEDTIME 09/23/22 10/31/22 gabapentin 400 mg capsule 1 cap PO TID 09/23/22 10/31/22 lithium carbonate 300 mg capsule 300 mg PO BID 09/23/22 10/31/22 nitrofurantoin 100 mg capsule 100 mg PO Q12H 09/23/22 10/31/22 ropinirole 0.5 mg tablet 0.5 mg PO BEDTIME 09/23/22 10/31/22 tiotropium bromide 18 mcg capsule 1 cap inhalation DAILY 09/23/22 10/31/22 with inhalation device (Spiriva with HandiHaler) Previous Rx's Medication Instructions Recorded albuterol sulfate 90 mcg/actuation 2 puff inhalation Q4-6H PRN 04/20/22 aerosol inhaler shortness of breath or wheezing 30 days #1 inhaler ferrous sulfate 324 mg (65 mg 324 mg PO DAILY 30 days #30 tabs 05/18/22 iron) tablet,delayed release nicotine 21 mg/24 hr daily 21 mg transdermal DAILY #30 ea 06/07/22 transdermal patch prednisone 50 mg tablet 50 mg PO DAILY #5 tabs 11/24/22 Allergies Allergy/AdvReac Type Severity Reaction Status Date / Time aspirin [Aspirin] Allergy Severe HIVES,THROAT Verified 09/07/22 22:13 SWELLS bee pollen [BEE STINGS] Allergy Severe ANAPHYLAXIS Verified 09/07/22 22:13 diphenhydramine Allergy Severe hives, Verified 09/07/22 22:13 [From BENADRYL ALLERGY] throat swells Penicillins [PCN] Allergy Severe HIVES Verified 09/07/22 22:13 THROAT SWELLS Sulfa (Sulfonamide Allergy Intermediate HIVES Verified 09/07/22 22:13 Antibiotics) [SULFA (SULFONAMIDE ANTIBIOTICS)] tramadol [TRAMADOL] Allergy Intermediate ITCHING Verified 09/07/22 22:13 latex [LATEX] Allergy Unknown UNKNOWN Verified 09/07/22 22:13 penicillin G Allergy Unknown Unknown Verified 09/07/22 22:13 levofloxacin [From Levaquin] Allergy Hives Verified 09/07/22 22:13 hydroxyzine AdvReac Severe restless Verified 09/07/22 22:13 legs seafood AdvReac Stomach Verified 09/03/22 20:12 Upset Review of Systems Review of Systems: Constitutional : No Weight loss, No Fever, No Chills, No Night Sweats, No Fatigue, No Malaise ENT/Mouth : No Hearing loss, No Ear Pain, No Nasal Congestion, No Sinus Pain, No Hoarseness, No sore throat, No Rhinorrhea, No Swallowing Difficulty Eyes: No Eye Pain, No Swelling, No Redness, No Foreign Body, No Discharge, No Vision Changes Cardiovascular : No Chest Pain, No SOB, No Dyspnea on Exertion, No Orthopnea, No Edema, No Palpitations Respiratory : Complaining of cough and wheezing Gastrointestinal : No Nausea, No Vomiting, No Diarrhea, No Constipation, No abdominal Pain, No Hematochezia, No Melena Genitourinary : no irregular bleeding, No Dysuria, No Urinary Frequency, No Hematuria, No Urinary Incontinence, No Urgency, No Flank Pain, No Urinary Flow Changes, No Hesitancy Musculoskeletal : No joint pain, No Myalgias, No Joint Swelling Skin : No Skin Lesions, No rash Neuro : No Weakness, No Numbness, No Paresthesias, No Loss of Consciousness, No Dizziness, No Headache Psych : Complaining of anxiety, depression and suicidal ideation, no homicidal ideation Heme/Lymph: No Bruising, No Bleeding,No Lymphadenopathy Endocrine : No Polyuria, No Polydipsia, No Temperature Intolerance PMFSH Past Medical History Medical History Asthma exacerbation in COPD Asthma-COPD overlap syndrome Bipolar disorder Bipolar I disorder Borderline personality disorder COPD (chronic obstructive pulmonary disease) Depression Drug abuse Herpes Intermittent explosive disorder Mass of parotid gland FABIOLA (obstructive sleep apnea) Post traumatic stress disorder (PTSD) Pseudoseizures Tobacco use Surgical History History of ankle surgery History of appendectomy History of back surgery Hx of cholecystectomy Family History Family History Mother COPD (chronic obstructive pulmonary disease) Social History Social History Household Members: None Household Members Other:: Intermediate in Deport Housing: Homeless Housing Other:: Sleeps on the couch at [facility] house Do you presently have visiting nurse or other home services: No Unable to assess alcohol history related to: Unknown Alcohol intake: unknown Patient Tobacco Use Status: Current everyday Tobacco user Tobacco use type: Cigarette Cigarette Packs Per Day: 3 Cigarettes Per Day: 2 Years Smoked: 34 e-Cigarette/Vaping Use: Former Use Second Hand Smoke Exposure: Yes Substance Use Type: Crack/Cocaine Advance Directives: Yes Advance Directives on File: Yes Advance Directives Date on File: 06/17/22 service: No Current occupational status: unemployed and disabled Sexual orientation: Straight/Heterosexual Physical Exam Vital Signs: Vital Signs: Last Vital Signs Temp 98.9 F 11/23/22 23:09 Pulse 99 11/23/22 23:09 Resp 18 11/23/22 23:09 BP 118/70 11/23/22 23:09 Pulse Ox 92 11/23/22 23:09 O2 Del Method 11/23/22 23:09 Oxygen Flow Rate 2 11/23/22 15:54 BMI result Body Mass Index 29.0 Const: Other: Appearance: Alert. Oriented X3. No acute distress. Well appearing Eyes: Pupils equal, round and reactive to light. ENT: Pharynx normal. Neck: Normal inspection. Neck supple. No lymph nodes noted. No crepitus CVS: Normal heart rate and rhythm. Pulses normal. Normal S1 and S2 Respiratory: No respiratory distress. Minimal bilateral wheezing, good air movement Abdomen: Soft and nontender. No rigidity. No distention. Skin: Skin warm and dry. Normal skin color. Normal skin turgor. Extremities: No lower extremity edema. No Lacerations. No Rash Neuro: Oriented X 3. No motor deficit. No sensory deficit. Moving all extremities. No slurred speech. CN 2 through 12 grossly intact Psych: calm, cooperative, normal affect Course Course Course Narrative: -patient breathing fairly well, normal respiratory rate, oxygen saturation 94% on room air -of patient's labs and imaging pending -patient is on a Section 12, after being medically cleared, care team will be consulted Medications Administered Discontinued Medications Generic Name Dose Route Start Last Admin Trade Name Ramoneq PRN Reason Stop Dose Admin Albuterol Sulfate 10 mg 11/23/22 17:12 11/23/22 17:33 Albuterol Sulfate (0.083%) 2.5 Mg/3 Ml Vial.Neb INHALE 11/23/22 17:13 10 mg ONCE ONE Administration Lorazepam 2 mg 11/23/22 20:48 11/23/22 20:54 Lorazepam 1 Mg Tablet PO 11/23/22 20:49 2 mg ONCE ONE Administration Methylprednisolone Sodium Succinate 60 mg 11/23/22 17:12 11/23/22 17:33 Methylprednisolone Sod Succ 125 Mg/2 Ml Vial IM 11/23/22 17:13 60 mg ONCE ONE Administration Medical Decision Making Medical Decision Making MDM Narrative: -patient breathing more comfortable on room air, no longer wheezing, labs unremarkable, troponin negative, chest x-ray negative, BMP within normal limits. -patient waiting to be seen by the care team -physician observation started at 18:40 -patient was evaluated by the care team. Patient states that there was a misunderstanding earlier today, patient states that she told EMS that she was going to kill herself if the wound give her a breathing treatment fast. However, patient did not mean that she was going to hurt herself. Patient denies suicidal or homicidal ideation. Patient ready for discharge Lab Data 11/23/22 16:30 11/23/22 16:30 Labs: Lab Results 11/23/22 11/23/22 11/23/22 Range/Units 16:30 16:30 16:30 WBC 8.5 (4.8-10.8) X10*3/uL RBC 4.34 (4.20-5.50) X10*6/uL Hgb 13.0 (12.0-16.0) g/dl Hct 40.6 (37.0-47.0) % MCV 93.5 (80.0-98.0) fL MCH 30.0 (27.0-33.0) pg MCHC 32.0 (31.0-35.0) g/dl RDW 12.5 (11.0-16.0) % Plt Count 299 (160-400) X10*3/uL MPV 9.9 (9.4-12.3) fL Immature Gran % (Auto) 0.6 H (0.0-0.4) % Neut % (Auto) 58.4 (45-73) % Lymph % (Auto) 30.6 (20-40) % [place] % (Auto) 7.2 (2-11) % Eos % (Auto) 2.0 (0-4) % Baso % (Auto) 1.2 (0-2) % Lymph # (Auto) 2.6 (1.2-4.9) X10*3/uL [place] # (Auto) 0.6 (0.1-1.2) X10*3/uL Eos # (Auto) 0.2 (0.0-0.4) X10*3/uL Baso # (Auto) 0.1 (0.0-0.2) X10*3/uL Abs Immat Gran (auto) 0.05 H (0.00-0.03) X10*3/uL Absolute Neuts (auto) 5.0 (2.0-8.3) x10*3/uL Absolute Nucleated RBC 0.000 (0.0-0.012) X10*3/uL Nucleated RBC % (auto) 0.0 (0.0-0.2) /100WBC Sodium 143 (135-145) mmol/L Potassium 4.1 (3.3-5.1) mmol/L Chloride 107 (96-108) mmol/L Carbon Dioxide 26 (22-29) mmol/L Anion Gap 14 (12-20) BUN 12 (9-16) mg/dL Creatinine 0.74 (0.5-1.4) mg/dL Estim Creat Clear Calc 96.8 Estimated GFR > 60 Fasting Glucose 90 (60-99) mg/dL Calcium 9.4 (8.4-10.2) mg/dL Total Bilirubin < 0.2 (0.0-1.0) mg/dL AST 26 (5-31) U/L ALT 31 (0-31) U/L Alkaline Phosphatase 104 (39-117) U/L Troponin I High Sens (<3.5-17.0) ng/L B-Natriuretic Peptide (<100) pg/mL Total Protein 6.7 (6.5-8.0) g/dL Albumin 4.2 (3.5-5.0) g/dL Urine Color Urine Appearance Urine pH (5.0-9.0) Ur Specific [place] (1.005-1.025) Urine Protein (Neg-Trace) mg/dL Urine Glucose (UA) (Negative) mg/dL Urine Ketones (Negative) mg/dL Urine Blood (Negative) Urine Nitrite (Negative) Ur Leukocyte Esterase (Negative) Urine RBC (0-2) /HPF Urine WBC (0-5) /HPF Ur Squamous Epith Cells (0-2) /HPF Urine Bacteria (None Seen) Hyaline Casts (0-2) /LPF Urine Opiates Screen (Not Detect) Urine Fentanyl Screen (Not Detect) Ur Barbiturates Screen (Not Detect) Ur Phencyclidine Scrn (Not Detect) Ur Amphetamines Screen (Not Detect) U Benzodiazepines Scrn (Not Detect) Urine Cocaine Screen (Not Detect) U Marijuana (THC) Screen (Not Detect) Ethyl Alcohol < 10 mg/dL COVID-19 (ENDY) (Negative) COVID-19 Clin Com 11/23/22 11/23/22 11/23/22 Range/Units 17:26 17:26 21:38 WBC (4.8-10.8) X10*3/uL RBC (4.20-5.50) X10*6/uL Hgb (12.0-16.0) g/dl Hct (37.0-47.0) % MCV (80.0-98.0) fL MCH (27.0-33.0) pg MCHC (31.0-35.0) g/dl RDW (11.0-16.0) % Plt Count (160-400) X10*3/uL MPV (9.4-12.3) fL Immature Gran % (Auto) (0.0-0.4) % Neut % (Auto) (45-73) % Lymph % (Auto) (20-40) % [place] % (Auto) (2-11) % Eos % (Auto) (0-4) % Baso % (Auto) (0-2) % Lymph # (Auto) (1.2-4.9) X10*3/uL [place] # (Auto) (0.1-1.2) X10*3/uL Eos # (Auto) (0.0-0.4) X10*3/uL Baso # (Auto) (0.0-0.2) X10*3/uL Abs Immat Gran (auto) (0.00-0.03) X10*3/uL Absolute Neuts (auto) (2.0-8.3) x10*3/uL Absolute Nucleated RBC (0.0-0.012) X10*3/uL Nucleated RBC % (auto) (0.0-0.2) /100WBC Sodium (135-145) mmol/L Potassium (3.3-5.1) mmol/L Chloride (96-108) mmol/L Carbon Dioxide (22-29) mmol/L Anion Gap (12-20) BUN (9-16) mg/dL Creatinine (0.5-1.4) mg/dL Estim Creat Clear Calc Estimated GFR Fasting Glucose (60-99) mg/dL Calcium (8.4-10.2) mg/dL Total Bilirubin (0.0-1.0) mg/dL AST (5-31) U/L ALT (0-31) U/L Alkaline Phosphatase (39-117) U/L Troponin I High Sens < 3.5 (<3.5-17.0) ng/L B-Natriuretic Peptide 72 (<100) pg/mL Total Protein (6.5-8.0) g/dL Albumin (3.5-5.0) g/dL Urine Color Yellow Urine Appearance Cloudy Urine pH 5.0 (5.0-9.0) Ur Specific [place] >= 1.030 H (1.005-1.025) Urine Protein Trace (Neg-Trace) mg/dL Urine Glucose (UA) Negative (Negative) mg/dL Urine Ketones Trace (Negative) mg/dL Urine Blood Negative (Negative) Urine Nitrite Negative (Negative) Ur Leukocyte Esterase Moderate (2+) H (Negative) Urine RBC 3-5 H (0-2) /HPF Urine WBC >50 H (0-5) /HPF Ur Squamous Epith Cells >20 (0-2) /HPF Urine Bacteria 2+ (None Seen) Hyaline Casts 3-5 (0-2) /LPF Urine Opiates Screen (Not Detect) Urine Fentanyl Screen (Not Detect) Ur Barbiturates Screen (Not Detect) Ur Phencyclidine Scrn (Not Detect) Ur Amphetamines Screen (Not Detect) U Benzodiazepines Scrn (Not Detect) Urine Cocaine Screen (Not Detect) U Marijuana (THC) Screen (Not Detect) Ethyl Alcohol mg/dL COVID-19 (ENDY) (Negative) COVID-19 Clin Com 11/23/22 11/23/22 Range/Units 21:38 21:44 WBC (4.8-10.8) X10*3/uL RBC (4.20-5.50) X10*6/uL Hgb (12.0-16.0) g/dl Hct (37.0-47.0) % MCV (80.0-98.0) fL MCH (27.0-33.0) pg MCHC (31.0-35.0) g/dl RDW (11.0-16.0) % Plt Count (160-400) X10*3/uL MPV (9.4-12.3) fL Immature Gran % (Auto) (0.0-0.4) % Neut % (Auto) (45-73) % Lymph % (Auto) (20-40) % [place] % (Auto) (2-11) % Eos % (Auto) (0-4) % Baso % (Auto) (0-2) % Lymph # (Auto) (1.2-4.9) X10*3/uL [place] # (Auto) (0.1-1.2) X10*3/uL Eos # (Auto) (0.0-0.4) X10*3/uL Baso # (Auto) (0.0-0.2) X10*3/uL Abs Immat Gran (auto) (0.00-0.03) X10*3/uL Absolute Neuts (auto) (2.0-8.3) x10*3/uL Absolute Nucleated RBC (0.0-0.012) X10*3/uL Nucleated RBC % (auto) (0.0-0.2) /100WBC Sodium (135-145) mmol/L Potassium (3.3-5.1) mmol/L Chloride (96-108) mmol/L Carbon Dioxide (22-29) mmol/L Anion Gap (12-20) BUN (9-16) mg/dL Creatinine (0.5-1.4) mg/dL Estim Creat Clear Calc Estimated GFR Fasting Glucose (60-99) mg/dL Calcium (8.4-10.2) mg/dL Total Bilirubin (0.0-1.0) mg/dL AST (5-31) U/L ALT (0-31) U/L Alkaline Phosphatase (39-117) U/L Troponin I High Sens (<3.5-17.0) ng/L B-Natriuretic Peptide (<100) pg/mL Total Protein (6.5-8.0) g/dL Albumin (3.5-5.0) g/dL Urine Color Urine Appearance Urine pH (5.0-9.0) Ur Specific [place] (1.005-1.025) Urine Protein (Neg-Trace) mg/dL Urine Glucose (UA) (Negative) mg/dL Urine Ketones (Negative) mg/dL Urine Blood (Negative) Urine Nitrite (Negative) Ur Leukocyte Esterase (Negative) Urine RBC (0-2) /HPF Urine WBC (0-5) /HPF Ur Squamous Epith Cells (0-2) /HPF Urine Bacteria (None Seen) Hyaline Casts (0-2) /LPF Urine Opiates Screen Not Detected (Not Detect) Urine Fentanyl Screen Not Detected (Not Detect) Ur Barbiturates Screen Not Detected (Not Detect) Ur Phencyclidine Scrn Not Detected (Not Detect) Ur Amphetamines Screen Not Detected (Not Detect) U Benzodiazepines Scrn Not Detected (Not Detect) Urine Cocaine Screen Not Detected (Not Detect) U Marijuana (THC) Screen Not Detected (Not Detect) Ethyl Alcohol mg/dL COVID-19 (ENDY) Negative (Negative) COVID-19 Clin Com See Note Discharge Plan Discharge Clinical Impression: Asthma Patient Disposition: Home, Self-Care Instructions: Asthma (ED) Additional Instructions: Please follow-up with your primary care physician tomorrow. If you have any worsening or new symptoms, please return to the emergency room or call 911 Prescriptions: New prednisone 50 mg tablet 50 mg PO DAILY Qty: 5 0RF No Action albuterol sulfate 90 mcg/actuation HFA aerosol inhaler 2 puff inhalation Q4-6H PRN (Reason: shortness of breath or wheezing) 30 Days Qty: 1 0RF ferrous sulfate 324 mg (65 mg iron) tablet,delayed release (DR/EC) 324 mg PO DAILY 30 Days Qty: 30 0RF capsaicin 0.025 % cream 1 appl topical QID PRN (Reason: pain) oxcarbazepine 150 mg tablet 1 tab PO BID valacyclovir 1 gram tablet 1 tab PO BID trazodone 100 mg tablet 2 tab PO BEDTIME benztropine 1 mg tablet 1 tab PO BID omeprazole 20 mg capsule,delayed release(DR/EC) 1 cap PO DAILY@0630 sertraline 50 mg tablet 50 mg PO DAILY cholecalciferol (vitamin D3) 25 mcg (1,000 unit) tablet 1 tab PO DAILY lithium carbonate 600 mg capsule 1 cap PO BID nitroglycerin 0.4 mg tablet, sublingual 0.4 mg sublingual Q5M PRN (Reason: Chest Pain) cyanocobalamin (vitamin B-12) 100 mcg tablet 1 tab PO DAILY olanzapine 10 mg tablet 1 tab PO BEDTIME Spiriva with HandiHaler 18 mcg capsule, w/inhalation device 1 cap inhalation DAILY ropinirole 0.5 mg Tablet 0.5 mg PO BEDTIME Rx Instructions: administer 1-3 hours before bedtime nitrofurantoin 100 mg Capsule 100 mg PO Q12H Rx Instructions: must administer with a meal/food clonidine HCl 0.1 mg Tablet 0.2 mg PO BEDTIME bupropion HCl 150 mg Tablet Extended Release 24 Hr 150 mg PO QAM lithium carbonate 300 mg Capsule 300 mg PO BID nicotine 21 mg/24 hr Patch 24 Hour 21 mg transdermal DAILY Qty: 30 0RF gabapentin 400 mg capsule 1 cap PO TID Interventions: [place]-Suicide Risk Severity Scale Last Done: 11/23/22 23:33
[2022-11-23] MEDS: Albuterol Sulfate (0.083%) 2.5 MG/3 ML VIAL.NEB 10 MG INHALE (17:33)
[2022-11-23] MEDS: methylPREDNISolone Sod Succ 125 MG/2 ML VIAL 60 MG IM (17:33)
[2022-11-23 17:35] VITALS: PULSE 84; RESP 15; O2SAT 98
[2022-11-23 17:44] LABS: MANUAL DIFF FLAG NO
[2022-11-23 17:50] LABS: Basophils Absolute Auto 0.1 X10*3/uL (0.0-0.2); Basophils Percent Auto 1.2 % (0-2); Eosinophils Absolute Auto 0.2 X10*3/uL (0.0-0.4); Hematocrit 40.6 % (37.0-47.0); Imm Gran Abs Auto 0.05 X10*3/uL (0.00-0.03); Imm Gran Pct Auto 0.6 % (0.0-0.4); Lymphocytes Absolute Auto 2.6 X10*3/uL (1.2-4.9); Lymphocytes Percent Auto 30.6 % (20-40); Mean Corpuscular Volume 93.5 fL (80.0-98.0); Mean Platelet Volume 9.9 fL (9.4-12.3); Monocytes Absolute Auto 0.6 X10*3/uL (0.1-1.2); Monocytes Percent Auto 7.2 % (2-11); Neutrophils Percent Auto 58.4 % (45-73); Platelet Count 299 X10*3/uL (160-400); Red Blood Count 4.34 X10*6/uL (4.20-5.50); Red Cell Distribution Width 12.5 % (11.0-16.0); White Blood Count 8.5 X10*3/uL (4.8-10.8)
[2022-11-23 18:13] LABS: Alanine Aminotransferase 31 U/L (0-31); Albumin Level 4.2 g/dL (3.5-5.0); Alkaline Phosphatase 104 U/L (39-117); Anion Gap 14 (12-20); Aspartate Amino Transferase 26 U/L (5-31); Bilirubin Total < 0.2 mg/dL (0.0-1.0); Blood Urea Nitrogen 12 mg/dL (9-16); Calcium 9.4 mg/dL (8.4-10.2); Carbon Dioxide 26 mmol/L (22-29); Chloride 107 mmol/L (96-108); Creatinine Clr Calc Pharmacy 96.8; Estimated Glomerular Filt Rate > 60; Glucose Fasting 90 mg/dL (60-99); Potassium 4.1 mmol/L (3.3-5.1); Sodium 143 mmol/L (135-145); Total Protein 6.7 g/dL (6.5-8.0)
[2022-11-23 18:16] LABS: Ethanol < 10 mg/dL
[2022-11-23 18:19] LABS: B Type Natriuretic Peptide 72 pg/mL (<100)
[2022-11-23 18:23] LABS: Troponin-I High Sensitivity < 3.5 ng/L (<3.5-17.0)
[2022-11-23 18:45] VITALS: BP 132/87; PULSE 82; RESP 18; O2SAT 95
[2022-11-23] MEDS: LORazepam 1 MG TABLET 2 MG PO (20:54)
[2022-11-23 21:47] LABS: Appearance Urine Cloudy; Color Urine Yellow; Glucose Urine UA Negative (Negative); Leukocyte Esterase Urine Moderate (2+) (Negative); Nitrite Urine Negative (Negative); Specific Gravity - Urine >= 1.030 (1.005-1.025); UMIC TRIGGER UACC YES; Urine Blood Negative (Negative); Urine Ketones Trace mg/dL (Negative); Urine Protein Trace mg/dL (Neg-Trace)
[2022-11-23 21:49] LABS: Bacteria Urine 2+ (None Seen); Squamous Epithelial Cell Urine >20 /HPF (0-2); UACC Culture Trigger YES; WBC Urine >50 /HPF (0-5)
--- NOTE | 2022-11-23 21:52 | PC.NURSE ---
patient requested ativan po for anxiety. administered per mar orders. care team at bedside to assess patient . 1:[address]
[2022-11-23 22:02] LABS: Amphetamine Screen Urine Not Detected (Not Detect); Barbiturates, Urine Not Detected (Not Detect); Benzodiazepines Screen Urine Not Detected (Not Detect); Cannabinoid Screen Urine Not Detected (Not Detect); Cocaine Screen Urine Not Detected (Not Detect); Fentanyl, urine Not Detected (Not Detect); Opiate Screen Urine Not Detected (Not Detect); Phencyclidine Screen Urine Not Detected (Not Detect)
[2022-11-23 22:20] LABS: COVID-19 Test Negative (Negative); IDNOW Serial# 6674DD1D
[2022-11-23 23:09] VITALS: BP 118/70; PULSE 99; RESP 18; TEMP 37.2; O2SAT 92
--- NOTE | 2022-11-23 23:28 | PC.NURSE ---
in room assessing patient - recommends discharge for patient. patient is denying SI/HI. stating she wants to go home and that it was all a misunderstanding. patient states she told ems if i dont get my breathing treatment i am going to but did not mean it in any SI type of way.
--- NOTE | 2022-11-24 00:12 | PC.NURSE ---
patient is 93% O2 on room air after ambulating to and from restroom. states that is about her baseline. no apparent distress or difficulty breathing.
== END 2022-11-24 00:21 | disposition home or self-care (01) ==
PROVIDERS: Emergency Provider Emergency Medicine
DX: J45.901 Unspecified asthma with (acute) exacerbation (principal); R06.02 Shortness of breath; F17.210 Nicotine dependence, cigarettes, uncomplicated; Z20.822 Contact with and (suspected) exposure to COVID-19; Z20.828 Contact with and (suspected) exposure to other viral communicable diseases; Z79.899 Other long term (current) drug therapy; Z71.6 Tobacco abuse counseling
CPT/HCPCS: 36415; 71045; 80053; 80307; 81001; 82077; 83880; 84484; 85025; 87086; 87635; 93005; 94640; 96372; 99285; J2930; S9485

== ENCOUNTER 2022-11-28 14:57 | Observation (INO) | payer OTHER, MEDICAID, SELFPAY ==
[2022-11-28] VITALS (11 sets, daily range): BP systolic 116–164; BP diastolic 52–91; PULSE 81–100; RESP 18–26; TEMP 36.8–37.2; O2SAT 91–97; BMI 41.5
--- NOTE | ~2022-11-28 | XR_ITS ---
EXAMINATION: XR chest 1V CLINICAL INFORMATION: Reason for Exam shortness of breath COMPARISON: Chest radiograph 11/23/2022 TECHNIQUE: One view of the chest FINDINGS: New patchy left basilar airspace opacities. No pneumothorax or pleural effusion. Normal cardiomediastinal silhouette. XR/XR chest 1V IMPRESSION: * New patchy left basilar airspace opacities may reflect a focus of atelectasis, however aspiration or infection could appear similar.
--- NOTE | 2022-11-28 15:17 | ECG_ITS ---
Test Reason : SOB Blood Pressure : / mmHG Vent. Rate : 088 BPM Atrial Rate : 088 BPM P-R Int : 136 ms QRS Dur : 084 ms QT Int : 372 ms P-R-T Axes : 057 034 028 degrees QTc Int : 450 ms Normal sinus rhythm Nonspecific T wave abnormality Abnormal ECG When compared with ECG of 23-NOV-2022 17:44, No significant change was found Referred By: Sonali Rowland Electronically Signed By:Deangelo Gutierres
[2022-11-28 15:55] LABS: MANUAL DIFF FLAG NO
[2022-11-28 15:57] LABS: Basophils Absolute Auto 0.1 X10*3/uL (0.0-0.2); Basophils Percent Auto 0.7 % (0-2); Eosinophils Absolute Auto 0.2 X10*3/uL (0.0-0.4); Eosinophils Percent Auto 2.1 % (0-4); Hematocrit 40.5 % (37.0-47.0); Hemoglobin 13.1 g/dl (12.0-16.0); Imm Gran Abs Auto 0.04 X10*3/uL (0.00-0.03); Imm Gran Pct Auto 0.4 % (0.0-0.4); Lymphocytes Absolute Auto 2.7 X10*3/uL (1.2-4.9); Lymphocytes Percent Auto 28.5 % (20-40); Mean Corpuscular HGB Conc 32.3 g/dl (31.0-35.0); Mean Corpuscular Hemoglobin 29.9 pg (27.0-33.0); Mean Corpuscular Volume 92.5 fL (80.0-98.0); Mean Platelet Volume 9.7 fL (9.4-12.3); Monocytes Absolute Auto 0.5 X10*3/uL (0.1-1.2); Monocytes Percent Auto 5.2 % (2-11); Neutrophils Absolute Auto 6.1 x10*3/uL (2.0-8.3); Neutrophils Percent Auto 63.1 % (45-73); Platelet Count 323 X10*3/uL (160-400); Red Blood Count 4.38 X10*6/uL (4.20-5.50); Red Cell Distribution Width 13.2 % (11.0-16.0); White Blood Count 9.6 X10*3/uL (4.8-10.8)
[2022-11-28] MEDS: methylPREDNISolone Sod Succ 125 MG/2 ML VIAL IVPUSH (16:01)
[2022-11-28] MEDS: Magnesium Sulfate/H2O 2 GM/50 ML PIGGYBACK IV (16:01)
[2022-11-28] MEDS: 0.9 % Sodium Chloride 1,000 ML 999 ML IVCONT (16:01)
[2022-11-28] MEDS: Albuterol Sulfate (0.083%) 2.5 MG/3 ML VIAL.NEB 10 MG INHALE (16:13)
[2022-11-28 16:17] LABS: Troponin-I High Sensitivity < 3.5 ng/L (<3.5-17.0)
[2022-11-28 16:32] LABS: INTERNATIONAL NORM RATIO 0.9 (0.9-1.1)
[2022-11-28 16:35] LABS: Influenza A PCR NEGATIVE (Negative); Influenza B PCR NEGATIVE (Negative); Resp Syncy Virus RNA Qual PCR NEGATIVE (Negative); SARS COV2 PCR INHOUSE NEGATIVE (Negative)
[2022-11-28 16:42] LABS: Alanine Aminotransferase 30 U/L (0-31); Albumin Level 3.9 g/dL (3.5-5.0); Alkaline Phosphatase 86 U/L (39-117); Anion Gap 12 (12-20); Aspartate Amino Transferase 15 U/L (5-31); Bilirubin Total 0.2 mg/dL (0.0-1.0); Blood Urea Nitrogen 15 mg/dL (9-16); Calcium 8.9 mg/dL (8.4-10.2); Carbon Dioxide 28 mmol/L (22-29); Chloride 104 mmol/L (96-108); Creatinine Clr Calc Pharmacy 119.3; Estimated Glomerular Filt Rate > 60; Glucose Random 116 mg/dL (60-115); Magnesium 2.3 mg/dL (1.6-2.6); Sodium 140 mmol/L (135-145); Total Protein 6.2 g/dL (6.5-8.0)
[2022-11-28 16:54] LABS: B Type Natriuretic Peptide 79 pg/mL (<100)
--- NOTE | 2022-11-28 17:15 | ED.SOB ---
HPI - SOB/Dyspnea General Chief Complaint: General Medical Stated Complaint: SOB X'S DAYS,ON DUONEB 98% PER EMS Time Seen by Provider: 11/28/22 15:05 Source: patient and EMS Mode of arrival: EMS Limitations: no limitations History of Present Illness HPI Narrative: 52 y/o female with history of borderline personality disorder, bipolar disorder, anxiety, polysubstance abuse, COPD/asthma, hx recurrent UTI who has had multiple psychiatric admissions? who is presenting to the ED via EMS with complaints of cough with yellow/ morris colored thick sputum with associated shortness of breath and wheezing for the past 2 days worse today. Also reports some suprapubic abdominal tenderness and some diarrhea yesterday. She reports the abdominal pain is resolved along with the diarrhea. She is also complaining of increased anxiety /depression with SI thoughts for the past 3 days. She reports that she would either cut herself, or jump in front of a car. She denies any recent drug or alcohol usage. She denies any sick contacts that she is aware of. She denies any measured fevers, dizziness, headaches, neck pain / stiffness, chest pain, dyspnea exertion, orthopnea, palpitations, paresthesias, nausea /vomiting, back pain, flank pain, abdominal pain at this time, black or bloody stools, dysuria, hematuria, abnormal vaginal discharge, lower extremity edema or calf tenderness, rashes, recent falls or trauma or any other symptoms complaints or concerns at this time. She denies any HI or auditory or visual hallucinations. MD elicited complaint: shortness of breath, cough, pain with inspiration, asthma attack and anxiety Pertinent past history: COPD and asthma Onset (ago): day(s) (2-3 days ) Timing: constant Severity: moderate Exacerbating factors: coughing, inspiration and deep breaths Relieving factors: nothing Known history of: COPD and asthma Associated symptoms: pain with inspiration, cough, wheezing, sputum production and chest congestion Treatment prior to arrival: bronchodilator Related Data Home oxygen amount: none Home Medications Medication Instructions Recorded Confirmed capsaicin 0.025 % topical cream 1 appl topical QID PRN pain 07/02/22 10/31/22 benztropine 1 mg tablet 1 tab PO BID 07/23/22 10/31/22 cholecalciferol (vitamin D3) 25 1 tab PO DAILY 07/23/22 10/31/22 mcg (1,000 unit) tablet omeprazole 20 mg capsule,delayed 1 cap PO DAILY@0630 07/23/22 10/31/22 release oxcarbazepine 150 mg tablet 1 tab PO BID 07/23/22 10/31/22 sertraline 50 mg tablet 50 mg PO DAILY 07/23/22 10/31/22 trazodone 100 mg tablet 2 tab PO BEDTIME 07/23/22 10/31/22 valacyclovir 1 gram tablet 1 tab PO BID 07/23/22 10/31/22 lithium carbonate 600 mg capsule 1 cap PO BID 07/24/22 10/31/22 cyanocobalamin (vitamin B-12) 100 1 tab PO DAILY 08/06/22 10/31/22 mcg tablet nitroglycerin 0.4 mg sublingual 0.4 mg sublingual Q5M PRN Chest 08/06/22 10/31/22 tablet Pain olanzapine 10 mg tablet 1 tab PO BEDTIME 08/06/22 10/31/22 bupropion HCl 150 mg 24 hr tablet, 150 mg PO QAM 09/23/22 10/31/22 extended release clonidine HCl 0.1 mg tablet 0.2 mg PO BEDTIME 09/23/22 10/31/22 gabapentin 400 mg capsule 1 cap PO TID 09/23/22 10/31/22 lithium carbonate 300 mg capsule 300 mg PO BID 09/23/22 10/31/22 nitrofurantoin 100 mg capsule 100 mg PO Q12H 09/23/22 10/31/22 ropinirole 0.5 mg tablet 0.5 mg PO BEDTIME 09/23/22 10/31/22 tiotropium bromide 18 mcg capsule 1 cap inhalation DAILY 09/23/22 10/31/22 with inhalation device (Spiriva with HandiHaler) Previous Rx's Medication Instructions Recorded albuterol sulfate 90 mcg/actuation 2 puff inhalation Q4-6H PRN 04/20/22 aerosol inhaler shortness of breath or wheezing 30 days #1 inhaler ferrous sulfate 324 mg (65 mg 324 mg PO DAILY 30 days #30 tabs 05/18/22 iron) tablet,delayed release nicotine 21 mg/24 hr daily 21 mg transdermal DAILY #30 ea 06/07/22 transdermal patch prednisone 50 mg tablet 50 mg PO DAILY #5 tabs 11/24/22 Allergies Allergy/AdvReac Type Severity Reaction Status Date / Time aspirin [Aspirin] Allergy Severe HIVES,THROAT Verified 09/07/22 22:13 SWELLS bee pollen [BEE STINGS] Allergy Severe ANAPHYLAXIS Verified 09/07/22 22:13 diphenhydramine Allergy Severe hives, Verified 09/07/22 22:13 [From BENADRYL ALLERGY] throat swells Penicillins [PCN] Allergy Severe HIVES Verified 09/07/22 22:13 THROAT SWELLS Sulfa (Sulfonamide Allergy Intermediate HIVES Verified 09/07/22 22:13 Antibiotics) [SULFA (SULFONAMIDE ANTIBIOTICS)] tramadol [TRAMADOL] Allergy Intermediate ITCHING Verified 09/07/22 22:13 latex [LATEX] Allergy Unknown UNKNOWN Verified 09/07/22 22:13 penicillin G Allergy Unknown Unknown Verified 09/07/22 22:13 levofloxacin [From Levaquin] Allergy Hives Verified 09/07/22 22:13 hydroxyzine AdvReac Severe restless Verified 09/07/22 22:13 legs seafood AdvReac Stomach Verified 09/03/22 20:12 Upset Review of Systems Review of Systems: Constitutional : No Weight loss, No Fever, No Chills, No Night Sweats, No Fatigue, No Malaise ENT/Mouth : No Hearing loss, No Ear Pain, No Nasal Congestion, No Sinus Pain, No Hoarseness, No sore throat, No Rhinorrhea, No Swallowing Difficulty Eyes: No Eye Pain, No Swelling, No Redness, No Foreign Body, No Discharge, No Vision Changes Cardiovascular : No Chest Pain, + SOB, No Dyspnea on Exertion, No Orthopnea, No Edema, No Palpitations Respiratory : + Cough, + Sputum, + Wheezing, No Smoke Exposure, + Dyspnea Gastrointestinal : No Nausea, No Vomiting, No Diarrhea, No Constipation, No abdominal Pain, No Hematochezia, No Melena Genitourinary : no irregular bleeding, No Dysuria, No Urinary Frequency, No Hematuria, No Urinary Incontinence, No Urgency, No Flank Pain, No Urinary Flow Changes, No Hesitancy Musculoskeletal : No joint pain, No Myalgias, No Joint Swelling Skin : No Skin Lesions, No rash Neuro : No Weakness, No Numbness, No Paresthesias, No Loss of Consciousness, No Dizziness, No Headache Psych : + Anxiety/Panic, + Depression, + SI, No HI/AH/VH, No Social Issues Heme/Lymph: No Bruising, No Bleeding,No Lymphadenopathy Endocrine : No Polyuria, No Polydipsia, No Temperature Intolerance Yes all other systems are reviewed and are negative [facility] Past Medical History Attestation statement: The following information was validated with the patient. Source: old records reviewed and nursing notes reviewed Medical History Asthma exacerbation in COPD Asthma-COPD overlap syndrome Bipolar disorder Bipolar I disorder Borderline personality disorder COPD (chronic obstructive pulmonary disease) Depression Drug abuse Herpes Intermittent explosive disorder Mass of parotid gland FABIOLA (obstructive sleep apnea) Post traumatic stress disorder (PTSD) Pseudoseizures Tobacco use Surgical History History of ankle surgery History of appendectomy History of back surgery Hx of cholecystectomy Family History Family History Mother COPD (chronic obstructive pulmonary disease) Social History Social History Household Members: None Household Members Other:: Care Home in [place] Housing: Homeless Housing Other:: Sleeps on the couch at [facility] house Do you presently have visiting nurse or other home services: No Unable to assess alcohol history related to: Unknown Alcohol intake: unknown Patient Tobacco Use Status: Current everyday Tobacco user Tobacco use type: Cigarette Cigarette Packs Per Day: 3 Cigarettes Per Day: 2 Years Smoked: 34 e-Cigarette/Vaping Use: Former Use Second Hand Smoke Exposure: Yes Substance Use Type: Crack/Cocaine Advance Directives: Yes Advance Directives on File: Yes Advance Directives Date on File: 06/17/22 service: No Current occupational status: unemployed and disabled Sexual orientation: Straight/Heterosexual Physical Exam Vital Signs: Vital Signs: Last Vital Signs Temp 98.2 F 11/28/22 15:06 Pulse 81 11/28/22 16:43 Resp 20 11/28/22 16:43 BP 134/75 11/28/22 16:43 Pulse Ox 91 L 11/28/22 16:43 O2 Del Method 11/28/22 16:43 BMI result Body Mass Index 41.5 vital signs have been reviewed as normal and appeared to be correct. Blood pressure normal. Heart rate normal. Respiration rate normal. Temperature normal. Oxygen saturation 94% on RA Appearance: Alert. Oriented X3. In acute respiratory distress otherwise no other acute distress. Head: Normal external exam. Normocephalic. Atraumatic. Eyes: PERRLA. EOMI. Conjunctiva and sclera normal. Eyelids normal. ENT: EAC normal. TM's Normal. Pharynx normal. Uvula midline. Moist mucous membranes. No trismus noted. No drooling noted. No muffled voice noted. Neck: Normal inspection. Neck supple. FROM. No adenopathy. Thyroid Normal. No meningeal signs. No neck mass noted. CVS: Normal heart rate and rhythm. Heart sound normal. No murmurs noted. Pulses normal throughout. Respiratory: In acute respiratory distress with decreased breath sounds and inspiratory and expiratory wheezing throughout. No rales/ rhonchi noted. No accessory muscle usage noted. No tracheal tugging noted. No stridor is noted. Patient tolerating secretions well. Chest is nontender. No signs of trauma. No crepitus is noted. Abdomen: Soft and nontender. Bowel sounds normal in all 4 quadrants. No distention noted. No organomegaly noted. No visible injury noted. Back: No CVA tenderness. Full range of motion noted. Skin: Skin warm and dry. Normal skin color. Normal skin turgor. No rashes/lesions/lacerations noted. Extremities: No lower extremity edema. No calf tenderness is noted. Extremities exhibit normal range of motion. Extremities nontender. Neuro: Oriented X 3. No motor deficit. No sensory deficit. Reflexes normal. CN's II-XII intact bilaterally? Psych: Appearance grossly normal, well-kept, mental status normal, speech and movement normal, speech clear, Normal affect. Does not appear anxious or depressed on my exam. does not appear suicidal. Not responding to any internal stimuli. Is cooperative. Normal thought process. Normal thought content. Normal good insight. Judgment good. Course Course Course Narrative: 15:20pm - 52 y/o female with history of borderline personality disorder, bipolar disorder, anxiety, polysubstance abuse, COPD/asthma, hx recurrent UTI who has had multiple psychiatric admissions? who is presenting to the ED via EMS with complaints of cough with yellow/ morris colored thick sputum with associated shortness of breath and wheezing for the past 2 days worse today. Also reports some suprapubic abdominal tenderness and some diarrhea yesterday. She reports the abdominal pain is resolved along with the diarrhea. She is also complaining of increased anxiety /depression with SI thoughts for the past 3 days. She reports that she would either cut herself, or jump in front of a car. Plan: Labs, EKG, CXR, COVID-19/RSV/FLU. Provide a L of IVF's, 125 mg of IV Solu-Medrol, 2 gm of Magnesium an hour long breathing tx and Re-evaluate. Reevaluation(s) Reevaluation #1: Labs reviewed - random glucose 116. - Total protein 6.2. - Patient negative for COVID/RSV/ flu. - Otherwise all other labs are within normal limits. Imaging - Chest x-ray revealed new patchy left bibasilar airspace opacity may represent of focus of atelectasis however aspiration or infection could appears similar. Plan: Therefore at this time will obtain blood cultures, lactic acid. Provide a g of IV Rocephin. Therefore at this time will attempt to admit the patient for asthma/ COPD exacerbation with possible pneumonia with hypoxia. She will also need to be evaluated by the care team for her increased anxiety/ depression with SI thoughts. Patient understands and is agreeable to this. Time: 17:33 Medications Administered Discontinued Medications Generic Name Dose Route Start Last Admin Trade Name Freq PRN Reason Stop Dose Admin Albuterol Sulfate 10 mg 11/28/22 15:17 11/28/22 16:13 Albuterol Sulfate (0.083%) 2.5 Mg/3 Ml Vial.Neb INHALE 11/28/22 15:18 10 mg ONCE ONE Administration Sodium Chloride 1,000 mls @ 999 mls/hr 11/28/22 15:30 11/28/22 17:18 Ns IVCONT 11/28/22 16:30 Infused .Q1H1M TEJA Infusion Magnesium Sulfate 2 gm in 50 mls @ 25 mls/hr 11/28/22 15:17 11/28/22 16:25 Magnesium Sulfate/H2o IV 11/28/22 17:16 Infused ONCE ONE Infusion Methylprednisolone Sodium Succinate 125 mg 11/28/22 15:17 11/28/22 16:01 Methylprednisolone Sod Succ 125 Mg/2 Ml Vial IVPUSH 11/28/22 15:18 125 mg ONCE ONE Administration Medical Decision Making Lab Data MDM Lab Attestation statement: I reviewed the patient's lab results. 11/28/22 15:52 11/28/22 16:14 Labs: Lab Results 11/28/22 11/28/22 11/28/22 Range/Units 15:52 15:52 15:52 WBC 9.6 (4.8-10.8) X10*3/uL RBC 4.38 (4.20-5.50) X10*6/uL Hgb 13.1 (12.0-16.0) g/dl Hct 40.5 (37.0-47.0) % MCV 92.5 (80.0-98.0) fL MCH 29.9 (27.0-33.0) pg MCHC 32.3 (31.0-35.0) g/dl RDW 13.2 (11.0-16.0) % Plt Count 323 (160-400) X10*3/uL MPV 9.7 (9.4-12.3) fL Immature Gran % (Auto) 0.4 (0.0-0.4) % Neut % (Auto) 63.1 (45-73) % Lymph % (Auto) 28.5 (20-40) % [place] % (Auto) 5.2 (2-11) % Eos % (Auto) 2.1 (0-4) % Baso % (Auto) 0.7 (0-2) % Lymph # (Auto) 2.7 (1.2-4.9) X10*3/uL [place] # (Auto) 0.5 (0.1-1.2) X10*3/uL Eos # (Auto) 0.2 (0.0-0.4) X10*3/uL Baso # (Auto) 0.1 (0.0-0.2) X10*3/uL Abs Immat Gran (auto) 0.04 H (0.00-0.03) X10*3/uL Absolute Neuts (auto) 6.1 (2.0-8.3) x10*3/uL Absolute Nucleated RBC 0.000 (0.0-0.012) X10*3/uL Nucleated RBC % (auto) 0.0 (0.0-0.2) /100WBC PT (10.0-13.1) SEC INR (0.9-1.1) Sodium (135-145) mmol/L Potassium (3.3-5.1) mmol/L Chloride (96-108) mmol/L Carbon Dioxide (22-29) mmol/L Anion Gap (12-20) BUN (9-16) mg/dL Creatinine (0.5-1.4) mg/dL Estim Creat Clear Calc Estimated GFR Random Glucose (60-115) mg/dL Calcium (8.4-10.2) mg/dL Magnesium (1.6-2.6) mg/dL Total Bilirubin (0.0-1.0) mg/dL AST (5-31) U/L ALT (0-31) U/L Alkaline Phosphatase (39-117) U/L Troponin I High Sens < 3.5 (<3.5-17.0) ng/L B-Natriuretic Peptide 79 (<100) pg/mL Total Protein (6.5-8.0) g/dL Albumin (3.5-5.0) g/dL Influenza Type A (PCR) (Negative) Influenza Type B (PCR) (Negative) RSV RNA Qual (PCR) (Negative) SARS-CoV-2 RNA (RT-PCR) (Negative) 11/28/22 11/28/22 11/28/22 Range/Units 15:52 16:14 16:14 WBC (4.8-10.8) X10*3/uL RBC (4.20-5.50) X10*6/uL Hgb (12.0-16.0) g/dl Hct (37.0-47.0) % MCV (80.0-98.0) fL MCH (27.0-33.0) pg MCHC (31.0-35.0) g/dl RDW (11.0-16.0) % Plt Count (160-400) X10*3/uL MPV (9.4-12.3) fL Immature Gran % (Auto) (0.0-0.4) % Neut % (Auto) (45-73) % Lymph % (Auto) (20-40) % [place] % (Auto) (2-11) % Eos % (Auto) (0-4) % Baso % (Auto) (0-2) % Lymph # (Auto) (1.2-4.9) X10*3/uL [place] # (Auto) (0.1-1.2) X10*3/uL Eos # (Auto) (0.0-0.4) X10*3/uL Baso # (Auto) (0.0-0.2) X10*3/uL Abs Immat Gran (auto) (0.00-0.03) X10*3/uL Absolute Neuts (auto) (2.0-8.3) x10*3/uL Absolute Nucleated RBC (0.0-0.012) X10*3/uL Nucleated RBC % (auto) (0.0-0.2) /100WBC PT 10.0 (10.0-13.1) SEC INR 0.9 (0.9-1.1) Sodium 140 (135-145) mmol/L Potassium 4.0 (3.3-5.1) mmol/L Chloride 104 (96-108) mmol/L Carbon Dioxide 28 (22-29) mmol/L Anion Gap 12 (12-20) BUN 15 (9-16) mg/dL Creatinine 0.70 (0.5-1.4) mg/dL Estim Creat Clear Calc 119.3 Estimated GFR > 60 Random Glucose 116 H (60-115) mg/dL Calcium 8.9 (8.4-10.2) mg/dL Magnesium 2.3 (1.6-2.6) mg/dL Total Bilirubin 0.2 (0.0-1.0) mg/dL AST 15 (5-31) U/L ALT 30 (0-31) U/L Alkaline Phosphatase 86 (39-117) U/L Troponin I High Sens (<3.5-17.0) ng/L B-Natriuretic Peptide (<100) pg/mL Total Protein 6.2 L (6.5-8.0) g/dL Albumin 3.9 (3.5-5.0) g/dL Influenza Type A (PCR) NEGATIVE (Negative) Influenza Type B (PCR) NEGATIVE (Negative) RSV RNA Qual (PCR) NEGATIVE (Negative) SARS-CoV-2 RNA (RT-PCR) NEGATIVE (Negative) Independent Interpretation I performed an independent interpretation of an: Plain X-Ray Interpretation: FINDINGS: New patchy left basilar airspace opacities. No pneumothorax or pleural effusion. Normal cardiomediastinal silhouette. XR/XR chest 1V IMPRESSION: ? *? New patchy left basilar airspace opacities may reflect a focus of atelectasis, however aspiration or infection could appear similar. Radiology Impression Discussion of test interpretation with radiology: I have reviewed the radiologist's reading. External Record Review External record reviewed: Inpatient record, Office record, Outpatient record, Prior outpatient labs, Prior outpatient radiology, Primary care record and Outside ED record Prescription Management I considered prescription management with: Antibiotic Discharge Plan Discharge Clinical Impression: Asthma exacerbation with COPD (chronic obstructive pulmonary disease) Patient Disposition: Admitted As Inpatient
--- NOTE | 2022-11-28 17:16 | PC.NURSE ---
pt resting comfortably on stretcher at this time, provided with food/drink. pt endorses SI. Pt breath sounds clear throughout except left lower lobe with a few crackles. Pt reports her breathing has been like this for a few days.
[2022-11-28] MEDS: cefTRIAXone sodium 1 GM in 0.9 % Sodium Chloride 50 ML IV (18:03)
[2022-11-28 18:17] LABS: Lactic Acid 2.5 mmol/L (0.5-2.0)
--- NOTE | 2022-11-28 18:23 | P.HPHOSP_ITS ---
History of Present Illness Date of Service: 11/28/22 Attending physician on admission: Bertrand Caldwell Chief Complaint: SOB, productive cough Pt is a 52-year-old female with a PMH significant for?borderline personality disorder, bipolar disorder, anxiety, polysubstance abuse, COPD/asthma, hx recurrent UTI, osteoarthritis, and fibromyalgia who has had multiple psychiatric admissions who presents to the ED with productive cough and worsening shortness of breath for the last 3 days. Patient states her symptoms began 3 days ago when she developed a cough productive of purulent, yellow/morris sputum. Since then pt has had chest pressure, feeling like a horse is sitting on my chest. Patient has had shortness of breath and difficulty breathing with exertion, as well as diarrhea. Patient denies fever, chills, nausea, vomiting. No abdominal pain. Patient has not noticed increasing edema in her legs, but notes that she has not been wearing compression stockings as prescribed, since these were lost during a recent move. Of note,?patient also complained upon admission to the ED of increasing anxiety/depression with SI thoughts for the past 3 days. She reported that she would either cut herself or jump in front of a car. Patient currently denies any thoughts of self-harm. In the ED patient was hemodynamically stable, satting at 91% on room air. Labs were significant for lactic acid of 2.5, troponin negative, BNP negative. Patient tested negative for influenza types A and B, RSV, and COVID. CXR showed new patchy left basilar opacities suggestive of either atelectasis, aspiration or infection. EKG demonstrates normal sinus rhythm with no evidence of ST e levations or depressions. Pt was treated with Solu-Medrol, IVF, ceftriaxone, and DuoNebs. Pt will be admitted for observation for acute COPD exacerbation likely secondary to community-acquired pneumonia. Review of Systems Review of Systems: Productive cough x3 days Chest pressure x3 days Worsening shortness of breath with exertion Diarrhea No fever, chills, nausea, vomiting Denies abdominal pain Yes all other systems are reviewed and are negative [facility] Medical History Asthma exacerbation in COPD Asthma-COPD overlap syndrome Bipolar disorder Bipolar I disorder Borderline personality disorder COPD (chronic obstructive pulmonary disease) Depression Drug abuse Herpes Intermittent explosive disorder Mass of parotid gland FABIOLA (obstructive sleep apnea) Post traumatic stress disorder (PTSD) Pseudoseizures Tobacco use Family History Mother COPD (chronic obstructive pulmonary disease) Surgical History History of ankle surgery History of appendectomy History of back surgery Hx of cholecystectomy Social History Household Members: None Household Members Other:: [facility] in [place] Housing: Apartment Housing Other:: Sleeps on the couch at [facility] house Do you presently have visiting nurse or other home services: Yes (twice a day) Unable to assess alcohol history related to: Unknown Alcohol intake: unknown Patient Tobacco Use Status: Current everyday Tobacco user Tobacco use type: Cigarette Cigarette Packs Per Day: 3 Cigarettes Per Day: 10 Years Smoked: 34 Smoked in Last 30 Days: Yes e-Cigarette/Vaping Use: Former Use Patient Interested in Nicotine Replacement: Yes Patient Given Instructions on How to Stop Smoking: No (pt not ready) Second Hand Smoke Exposure: No Use of substances other than those prescribed or required for medical reasons: No Substance Use Type: Crack/Cocaine Last Used Substance Other:: month ago Currently Displaying Signs/Symptoms of Drug Intoxication Withdrawal: No Any prior treatment program specific to substance use: No Have you been hit, kicked, punched, or otherwise hurt by someone within the past year? If so, by whom?: No Do you feel safe in your current relationship?: No Current Relationship Is there a partner from a previous relationship who is making you feel unsafe now?: No Are you made to feel afraid or neglected: No Advance Directives: Yes Advance Directives on File: Yes Advance Directives Date on File: 06/17/22 Do you have thoughts of harming others: None Do you have a plan to hurt others: No Plan Recently lost weight without trying: No Eating poorly because of decreased appetite: No Nutrition Risks: No Nutritional Risk Patient : No : No Poor oral hygiene: No service: No Current occupational status: unemployed and disabled Sexual orientation: Straight/Heterosexual Meds Allergies Allergy/AdvReac Type Severity Reaction Status Date / Time aspirin [Aspirin] Allergy Severe HIVES,THROAT Verified 09/07/22 22:13 SWELLS bee pollen [BEE STINGS] Allergy Severe ANAPHYLAXIS Verified 09/07/22 22:13 diphenhydramine Allergy Severe hives, Verified 09/07/22 22:13 [From BENADRYL ALLERGY] throat swells Penicillins [PCN] Allergy Severe HIVES Verified 09/07/22 22:13 THROAT SWELLS Sulfa (Sulfonamide Allergy Intermediate HIVES Verified 09/07/22 22:13 Antibiotics) [SULFA (SULFONAMIDE ANTIBIOTICS)] tramadol [TRAMADOL] Allergy Intermediate ITCHING Verified 09/07/22 22:13 latex [LATEX] Allergy Unknown UNKNOWN Verified 09/07/22 22:13 penicillin G Allergy Unknown Unknown Verified 09/07/22 22:13 levofloxacin [From Levaquin] Allergy Hives Verified 09/07/22 22:13 hydroxyzine AdvReac Severe restless Verified 09/07/22 22:13 legs seafood AdvReac Stomach Verified 09/03/22 20:12 Upset Active Medications: Current Medications Pharmacy Consult (Consult Rx Perform Med Rec) 1 each MISCELLANE ONCE PRN PRN Reason: Consult order Home Medications Medication Instructions Recorded Confirmed Last Taken Type capsaicin 0.025 % topical cream 1 appl topical QID PRN pain 07/02/22 10/31/22 09/03/22 History benztropine 1 mg tablet 1 tab PO BID 07/23/22 10/31/22 09/03/22 History cholecalciferol (vitamin D3) 25 1 tab PO DAILY 07/23/22 10/31/22 09/03/22 History mcg (1,000 unit) tablet omeprazole 20 mg capsule,delayed 1 cap PO DAILY@0630 07/23/22 10/31/22 09/03/22 History release oxcarbazepine 150 mg tablet 1 tab PO BID 07/23/22 10/31/22 09/03/22 History sertraline 50 mg tablet 50 mg PO DAILY 07/23/22 10/31/22 09/03/22 History valacyclovir 1 gram tablet 1 tab PO BID 07/23/22 10/31/22 09/03/22 History lithium carbonate 600 mg capsule 1 cap PO BID 07/24/22 10/31/22 09/03/22 History cyanocobalamin (vitamin B-12) 100 1 tab PO DAILY 08/06/22 10/31/22 09/03/22 History mcg tablet nitroglycerin 0.4 mg sublingual 0.4 mg sublingual Q5M PRN Chest 08/06/22 10/31/22 09/03/22 History tablet Pain olanzapine 10 mg tablet 1 tab PO BEDTIME 08/06/22 10/31/22 09/03/22 History bupropion HCl 150 mg 24 hr tablet, 150 mg PO QAM 09/23/22 10/31/22 Unknown History extended release clonidine HCl 0.1 mg tablet 0.2 mg PO BEDTIME 09/23/22 10/31/22 Unknown History gabapentin 400 mg capsule 1 cap PO TID 09/23/22 10/31/22 Unknown History ropinirole 0.5 mg tablet 0.5 mg PO BEDTIME 09/23/22 10/31/22 Unknown History tiotropium bromide 18 mcg capsule 1 cap inhalation DAILY 09/23/22 10/31/22 Unknown History with inhalation device (Spiriva with HandiHaler) Physical Exam Vital Signs and Narrative: Vital Signs: Last Vital Signs Temp 98.2 F 11/28/22 15:06 Pulse 81 11/28/22 16:43 Resp 20 11/28/22 16:43 BP 134/75 11/28/22 16:43 Pulse Ox 91 L 11/28/22 16:43 O2 Del Method 11/28/22 16:43 BMI result Body Mass Index 41.5 Constitutional: Alert, in no acute distress. Mental Status: Oriented to person, place and time. Eyes: Pupils are equal, round, and reactive to light. Ear, Nose, and Throat: Oropharynx clear, mucous membranes moist. Ears and nose without deformities. Trachea midline. Respiratory: Diffuse expiratory wheezing bilaterally.. Cardiovascular: S1, S2 regular. No murmurs, rubs, or gallops. Gastrointestinal: Abdomen soft, non-tender, non-distended. Normal bowel sounds. Neurologic: Cranial nerves II-XII are grossly intact. No focal neurological deficits. Moves all extremities spontaneously. Skin: No rashes or lesions noted. Musculoskeletal: No cyanosis or clubbing. Extremities: Trace edema bilaterally.. Psychiatric: Normal mood and affect. Results Labs 11/28/22 15:52 11/28/22 16:14 Labs: Laboratory Results - last 24 hr 11/28/22 11/28/22 11/28/22 15:52 15:52 15:52 MCV 92.5 MCH 29.9 MCHC 32.3 RDW 13.2 Plt Count 323 MPV 9.7 Immature Gran % (Auto) 0.4 Neut % (Auto) 63.1 Lymph % (Auto) 28.5 [place] % (Auto) 5.2 Eos % (Auto) 2.1 Baso % (Auto) 0.7 Lymph # (Auto) 2.7 [place] # (Auto) 0.5 Eos # (Auto) 0.2 Baso # (Auto) 0.1 Abs Immat Gran (auto) 0.04 H Absolute Neuts (auto) 6.1 Absolute Nucleated RBC 0.000 Nucleated RBC % (auto) 0.0 PT INR Anion Gap Estim Creat Clear Calc Estimated GFR Random Glucose Lactic Acid Calcium Magnesium Total Bilirubin AST ALT Alkaline Phosphatase Troponin I High Sens < 3.5 B-Natriuretic Peptide 79 Total Protein Albumin Influenza Type A (PCR) Influenza Type B (PCR) RSV RNA Qual (PCR) SARS-CoV-2 RNA (RT-PCR) 11/28/22 11/28/22 11/28/22 15:52 16:14 16:14 MCV MCH MCHC RDW Plt Count MPV Immature Gran % (Auto) Neut % (Auto) Lymph % (Auto) [place] % (Auto) Eos % (Auto) Baso % (Auto) Lymph # (Auto) [place] # (Auto) Eos # (Auto) Baso # (Auto) Abs Immat Gran (auto) Absolute Neuts (auto) Absolute Nucleated RBC Nucleated RBC % (auto) PT 10.0 INR 0.9 Anion Gap 12 Estim Creat Clear Calc 119.3 Estimated GFR > 60 Random Glucose 116 H Lactic Acid Calcium 8.9 Magnesium 2.3 Total Bilirubin 0.2 AST 15 ALT 30 Alkaline Phosphatase 86 Troponin I High Sens B-Natriuretic Peptide Total Protein 6.2 L Albumin 3.9 Influenza Type A (PCR) NEGATIVE Influenza Type B (PCR) NEGATIVE RSV RNA Qual (PCR) NEGATIVE SARS-CoV-2 RNA (RT-PCR) NEGATIVE 11/28/22 17:56 MCV MCH MCHC RDW Plt Count MPV Immature Gran % (Auto) Neut % (Auto) Lymph % (Auto) [place] % (Auto) Eos % (Auto) Baso % (Auto) Lymph # (Auto) [place] # (Auto) Eos # (Auto) Baso # (Auto) Abs Immat Gran (auto) Absolute Neuts (auto) Absolute Nucleated RBC Nucleated RBC % (auto) PT INR Anion Gap Estim Creat Clear Calc Estimated GFR Random Glucose Lactic Acid 2.5 H* Calcium Magnesium Total Bilirubin AST ALT Alkaline Phosphatase Troponin I High Sens B-Natriuretic Peptide Total Protein Albumin Influenza Type A (PCR) Influenza Type B (PCR) RSV RNA Qual (PCR) SARS-CoV-2 RNA (RT-PCR) Imaging Radiologist's Impressions: Impressions Chest X-Ray 11/28/22 17:17 IMPRESSION: * New patchy left basilar airspace opacities may reflect a focus of atelectasis, however aspiration or infection could appear similar. Assessment and Plan (1) Acute exacerbation of COPD with asthma: Status: Acute (2) Pneumonia: Status: Acute Plan Pt is a 52-year-old female with a PMH significant for?borderline personality disorder, bipolar disorder, anxiety, polysubstance abuse, COPD/asthma, hx recurrent UTI, osteoarthritis, and fibromyalgia who has had multiple psychiatric admissions who presents to the ED with productive cough and worsening shortness of breath for the last 3 days. Pt will be admitted to observation for acute COPD exacerbation likely secondary to community-acquired pneumonia. Acute COPD exacerbation Likely secondary to pneumonia X-ray with new patchy left basilar opacities suspicious of atelectasis, aspiration, infection Solu-Medrol 40 mg q12 DuoNebs q4 while awake Ceftriaxone, azithromycin day 1 Pt does not meet sepsis criteria Monitor respiratory status Chest pain/pressure Likely secondary to COPD exacerbation Troponin negative EKG showed normal sinus rhythm with no evidence of ST elevations or depressions Likely to improve with above treatment, monitor Suicidal ideation Patient presented to the ED with increasing SI x3 days Patient had a plan to either cut herself or or jump in front of a car Patient denies any current SI Continue sitter Care team consult Acute lactic acidosis Lactic acid 2.5 Repeat lactic acid in 2hrs Pt does not meet sepsis criteria Mental health Continue home meds Consider psych consult if SI return or upon Care Team recommendation Full Code Attending:?Dr. Macias DVT Prophylaxis: Lovenox Pt will be admitted to observation for acute COPD exacerbation likely secondary to community-acquired pneumonia. Time Spent With Patient Time: Total time managing care of this patient today ____ minutes. Quality Stroke Does the patient have a stroke diagnosis?: No VTE Prior VTE?: No VTE Risk Level:: Medical - moderate - high VTE Device Contraindication: Treatment Not Indicated VTE Drug Contraindication: N/A - Med Ordered
[2022-11-28] MEDS: 0.9 % Sodium Chloride 1,000 ML 999 ML IV (18:34)
--- NOTE | 2022-11-28 19:32 | PC.NURSE ---
late entry: pt lactic acid elevated, MARSHALL Mancilla aware. this RN requested a second liter of NS, MARSHALL Mancilla discussed with hospitalist, and order for second liter of fluids obtained
[2022-11-28] MEDS: Azithromycin 500 MG in 0.9 % Sodium Chloride 250 ML 125 MG IV (19:40)
[2022-11-28] MEDS: Enoxaparin Sodium 40 MG/0.4 ML SYRINGE SUBCUT (19:41)
[2022-11-28 19:59] LABS: Reflex Lactate? Lactic Acid Added
--- NOTE | 2022-11-28 20:22 | PC.NURSE ---
called report for pt, MELONY Quiroga took report, awaiting call from nursing electronic controls repairer supervisor regarding sitter for pt
[2022-11-28 20:51] LABS: ~Lactic Acid-LAB USE ONLY 3.9 mmol/L (0.5-2.0)
--- NOTE | 2022-11-28 20:52 | PC.NURSE ---
critical result of lactic 3.5 received. LASHONDA Waterman, no new orders at this time
[2022-11-28] MEDS: Morphine Sulfate 4 MG/ML CARTRIDGE IVPUSH (21:08)
[2022-11-28] MEDS: Lactated Ringers 1,000 ML 100 ML IVCONT (21:57)
--- NOTE | 2022-11-28 22:07 | PC.NURSE ---
LR hung per PA order, this RN will re-draw lactic. Pt resting comfortably on stretcher, no pain at this time
[2022-11-28] MEDS: Albuterol/Iprat 2.5/0.5MG 3 ML AMPUL.NEB INHALE (22:10)
[2022-11-28 22:23] LABS: Reflex Lactate? 2 Y
--- NOTE | 2022-11-28 22:42 | PC.NURSE ---
pt reported to this RN that she only wants this RN to draw lactic, this RN attempted to draw but was unsuccessful. Phlebotomy called, and drawing pt at this time
[2022-11-28 23:12] LABS: ~Lactic Acid-LAB USE ONLY 3.2 mmol/L (0.5-2.0)
[2022-11-29] VITALS (10 sets, daily range): BP systolic 157–180; BP diastolic 77–97; PULSE 77–104; RESP 15–22; TEMP 36.3–37; O2SAT 91–99
[2022-11-29] MEDS: Morphine Sulfate 4 MG/ML CARTRIDGE IVPUSH ×2 (00:40→04:11)
--- NOTE | 2022-11-29 00:43 | PC.NURSE ---
pt complained about chest pain 08/09 & work of breathing, dr. Macias notified, ordered Morphine. given. CPAP ordered. RT setting up.
[2022-11-29] MEDS: methylPREDNISolone Sod Succ 40 MG/ML VIAL IVPUSH ×2 (05:38→17:26)
[2022-11-29] MEDS: Albuterol/Iprat 2.5/0.5MG 3 ML AMPUL.NEB INHALE ×4 (07:51→19:03)
[2022-11-29] MEDS: Lactated Ringers 1,000 ML 100 ML IVCONT (08:06)
--- NOTE | 2022-11-29 08:25 | ECG_ITS ---
Test Reason : CP 07/10 Blood Pressure : / mmHG Vent. Rate : 080 BPM Atrial Rate : 080 BPM P-R Int : 150 ms QRS Dur : 086 ms QT Int : 384 ms P-R-T Axes : 051 022 019 degrees QTc Int : 442 ms Normal sinus rhythm Normal ECG When compared with ECG of 28-NOV-2022 18:15, No significant change was found Referred By: Eric Cavazos Electronically Signed By:Deangelo Gutierres
--- NOTE | 2022-11-29 09:13 | PHA.MEDREC ---
Pharmacy Consult ? Medication Reconciliation Pharmacy has completed the medication reconciliation. Confirmed list with patient. Patient picks up from [facility] which does not show up in claims. Called them to confirm list as well.
[2022-11-29] MEDS: Acetaminophen 325 MG TABLET 650 MG PO ×2 (09:42→16:23)
--- NOTE | 2022-11-29 10:35 | P.PNIM_ITS ---
Subjective Subjective Date of Service: 11/29/22 Interval History: Complaining of left anterior chest pain ,worse with coughing, no nausea, no vomiting tolerating diet has not taken home medicine since yesterday, denies lightheadedness or dizziness sitter at bedside no acute issues overnight. Review of Systems COMPOUND SPECIALIST no headache no dizziness CVS no chest pain no palpitation GI no nausea, no vomiting Review of Systems: Yes all other systems are reviewed and are negative Physical Exam Vital Signs: Vital Signs: Last Vital Signs Temp 98.6 F 11/29/22 07:42 Pulse 87 11/29/22 08:32 Resp 22 H 11/29/22 08:32 BP 180/86 H 11/29/22 08:32 Pulse Ox 94 11/29/22 08:32 O2 Del Method 11/29/22 08:32 BMI result Body Mass Index 41.5 Const: Other: General awake alert x 3, in no acute distress.? Neck supple no JVD. CVS? regular rate rhythm, anterior chest wall tenderness to palpation Respiratory lungs few expiratory wheeze, no respiratory distress, no crackles, no use of accessory muscles Gastrointestinal abdomen soft, nontender, bowel sounds audible,no guarding , no rigidity. Extremities no edema. Neuro nonfocal, moving all 4 extremity, speech clear. Skin no rash Psych appropriate affect Objective Data Active Medications Acetaminophen (Acetaminophen 325 Mg Tablet) 650 mg PO Q6H PRN PRN Reason: Pain, Mild (Pain Scale 1-3) Last Admin: 11/29/22 09:42 Dose: 650 mg Documented By: QUINCY Albuterol Sulfate (Albuterol Sulfate 90 Mcg 8 Gm Inhaler) 2 puff INHALE RQ4H PRN PRN Reason: shortness of breath or wheezing Albuterol/Ipratropium (Albuterol/Iprat 2.5/0.5mg 3 Ml Ampul.Neb) 3 ml INHALE RQID TEJA Benztropine Mesylate (Benztropine Mesylate 1 Mg Tablet) 1 mg PO BID TEJA Bupropion HCl (Bupropion Hcl Xl 150 Mg Tab.Er.24h) 150 mg PO DAILY TEJA Clonidine HCl (Clonidine Hcl 0.2 Mg Tablet) 0.2 mg PO BEDTIME TEJA; Protocol Cyanocobalamin (Cyanocobalamin (Vitamin B-12) 100 Mcg Tablet) 100 mcg PO DAILY TEJA Docusate Sodium (Docusate Sodium 100 Mg Capsule) 100 mg PO DAILY PRN PRN Reason: Constipation Enoxaparin Sodium (Enoxaparin Sodium 40 Mg/0.4 Ml Syringe) 40 mg SUBCUT Q24H SC H Last Admin: 11/28/22 19:41 Dose: 40 mg Documented By: ANGELIKA Ferrous Sulfate (Ferrous Sulfate 324 Mg Tablet.) 324 mg PO DAILY [facility] Gabapentin (Gabapentin 300 Mg Capsule) 600 mg PO TID [facility] Azithromycin 500 mg/ Sodium (Chloride) 250 mls @ 125 mls/hr IV Q24H [facility] Last Infusion: 11/28/22 21:56 Dose: 0 mls/hr Documented By: ANGELIKA Ceftriaxone Sodium 1 gm/ (Sodium Chloride) 50 mls @ 100 mls/hr IV Q24H [facility] Kennard Carbonate (Kennard Carbonate 300 Mg Capsule) 600 mg PO BID [facility] Methylprednisolone Sodium Succinate (Methylprednisolone Sod Succ 40 Mg/Ml Vial) 40 mg IVPUSH Q12H [facility] Last Admin: 11/29/22 05:38 Dose: 40 mg Documented By: STEPH Nitroglycerin (Nitroglycerin 0.4 Mg Tab.Subl) 0.4 mg SUBLINGUAL Q5M PRN PRN Reason: Chest Pain Olanzapine (Olanzapine 10 Mg Tablet) 10 mg PO BEDTIME [facility] Omeprazole (Omeprazole 20 Mg Capsule.) 20 mg PO DAILY@0630 [facility] Oxcarbazepine (Oxcarbazepine 150 Mg Tablet) 150 mg PO BID [facility] Pharmacy Consult (Consult Rx Perform Med Rec) 1 each MISCELLANE ONCE PRN PRN Reason: Consult order Ropinirole HCl (Ropinirole Hcl 0.5 Mg Tablet) 0.5 mg PO BEDTIME [facility] Sodium Chloride (0.9 % Sodium Chloride Flush 3 Ml Syringe) 3 ml IVFLUSH QSHIFT [facility] Last Admin: 11/29/22 08:03 Dose: Not Given Documented By: QUINCY Non-Admin Reason: IV Running Valacyclovir HCl (Valacyclovir Hcl 1,000 Mg Tablet) 1,000 mg PO BID [facility] Vitamin D (Cholecalciferol (Vitamin D3) 25 Mcg Tablet) 25 mcg PO DAILY [facility] Labs 11/28/22 15:52 11/28/22 16:14 Labs: Laboratory Results - last 24 hr 11/28/22 11/28/22 11/28/22 15:52 15:52 15:52 MCV 92.5 MCH 29.9 MCHC 32.3 RDW 13.2 Plt Count 323 MPV 9.7 Immature Gran % (Auto) 0.4 Neut % (Auto) 63.1 Lymph % (Auto) 28.5 [place] % (Auto) 5.2 Eos % (Auto) 2.1 Baso % (Auto) 0.7 Lymph # (Auto) 2.7 [place] # (Auto) 0.5 Eos # (Auto) 0.2 Baso # (Auto) 0.1 Abs Immat Gran (auto) 0.04 H Absolute Neuts (auto) 6.1 Absolute Nucleated RBC 0.000 Nucleated RBC % (auto) 0.0 PT INR Anion Gap Estim Creat Clear Calc Estimated GFR Random Glucose Lactic Acid Lactic Acid F/U @ 2Hr Lactic Acid F/U @ 4Hr Calcium Magnesium Total Bilirubin AST ALT Alkaline Phosphatase Troponin I High Sens < 3.5 B-Natriuretic Peptide 79 Total Protein Albumin Influenza Type A (PCR) Influenza Type B (PCR) RSV RNA Qual (PCR) SARS-CoV-2 RNA (RT-PCR) 11/28/22 11/28/22 11/28/22 15:52 16:14 16:14 MCV MCH MCHC RDW Plt Count MPV Immature Gran % (Auto) Neut % (Auto) Lymph % (Auto) [place] % (Auto) Eos % (Auto) Baso % (Auto) Lymph # (Auto) [place] # (Auto) Eos # (Auto) Baso # (Auto) Abs Immat Gran (auto) Absolute Neuts (auto) Absolute Nucleated RBC Nucleated RBC % (auto) PT 10.0 INR 0.9 Anion Gap 12 Estim Creat Clear Calc 119.3 Estimated GFR > 60 Random Glucose 116 H Lactic Acid Lactic Acid F/U @ 2Hr Lactic Acid F/U @ 4Hr Calcium 8.9 Magnesium 2.3 Total Bilirubin 0.2 AST 15 ALT 30 Alkaline Phosphatase 86 Troponin I High Sens B-Natriuretic Peptide Total Protein 6.2 L Albumin 3.9 Influenza Type A (PCR) NEGATIVE Influenza Type B (PCR) NEGATIVE RSV RNA Qual (PCR) NEGATIVE SARS-CoV-2 RNA (RT-PCR) NEGATIVE 11/28/22 11/28/22 11/28/22 17:56 20:14 22:45 MCV MCH MCHC RDW Plt Count MPV Immature Gran % (Auto) Neut % (Auto) Lymph % (Auto) [place] % (Auto) Eos % (Auto) Baso % (Auto) Lymph # (Auto) [place] # (Auto) Eos # (Auto) Baso # (Auto) Abs Immat Gran (auto) Absolute Neuts (auto) Absolute Nucleated RBC Nucleated RBC % (auto) PT INR Anion Gap Estim Creat Clear Calc Estimated GFR Random Glucose Lactic Acid 2.5 H* Lactic Acid F/U @ 2Hr 3.9 H* Lactic Acid F/U @ 4Hr 3.2 H* Calcium Magnesium Total Bilirubin AST ALT Alkaline Phosphatase Troponin I High Sens B-Natriuretic Peptide Total Protein Albumin Influenza Type A (PCR) Influenza Type B (PCR) RSV RNA Qual (PCR) SARS-CoV-2 RNA (RT-PCR) Assessment and Plan (1) Asthma exacerbation with COPD (chronic obstructive pulmonary disease): Status: Acute (2) Pneumonia: Status: Acute Plan 52-year-old female with a PMH significant for?borderline personality disorder, bipolar disorder, anxiety, polysubstance abuse, COPD/asthma, hx recurrent UTI, osteoarthritis, and fibromyalgia who has had multiple psychiatric admissions?who presents to the ED with productive cough and worsening shortness of breath for the last 3 days. Pt will be admitted to observation for acute COPD exacerbation likely secondary to community-acquired pneumonia. Acute COPD exacerbation Likely secondary to pneumonia No overnight fever chills oxygenation stable complaining of left anterior chest wall pain with coughing X-ray with new patchy left basilar opacities suspicious of atelectasis, aspiration, infection Continue Solu-Medrol 40 mg q12, change DuoNeb to q.i.d. continue Ceftriaxone, azithromycin day 2/5 Add cough medication, incentive spirometry out of bed to chair, Monitor respiratory status. Med reconciliation done Chest pain/pressure Musculoskeletal EKG repeat this morning showed no acute ischemia, Troponin negative, add Tylenol and cough medication Suicidal ideation Patient presented to the ED with increasing SI x3 days, with a plan to either cu t herself or or jump in front of a car Patient denies any current SI Continue sitter Care team consult Acute lactic acidosis likely due to updraft treatment DC IV fluid, no sepsis, tachycardia tachypnea due to COPD exacerbation Mental health Continue home meds Full Code DVT Prophylaxis: Lovenox Pt will need continued inpatient hospitalization for acute COPD exacerbation likely secondary to community-acquired pneumonia and for treatment and evaluation for suicidal ideation. Time Spent With Patient Time: Total time managing care of this patient today ____ minutes. Quality Stroke Does the patient have a stroke diagnosis?: No VTE Prior VTE?: No VTE Risk Level:: Medical - moderate - high VTE Device Contraindication: Treatment Not Indicated VTE Drug Contraindication: N/A - Med Ordered
[2022-11-29] MEDS: buPROPion HCl XL 150 MG TAB.ER.24H PO (10:54)
[2022-11-29] MEDS: Benztropine Mesylate 1 MG TABLET PO ×2 (10:54→20:06)
--- NOTE | 2022-11-29 12:03 | MHC.CM.PN ---
PORSCHE 11/29/22, EMR REVIEWED, PT ADMITTED W/COPD EXAC, CM MET W/PT WHO IS BRIGHT AND IN GOOD SPIRITS, PT REPORTS SHE IS NO LONGER HAVING SI AND REPORTS SHE ONLY SAID THAT BECAUSE SHE WAS SO OVERWHELMED AND ANXIOUS ABOUT HER BREATHING/MEDICAL ISSUES BUT NOW THAT SHE'S FEELING BETTER SHE DENIES SI. PT REPORTS SHE LIVES IN HER OWN APARTMENT NOW, USES A WALKER AND CPAP FOR DME, OUTPT THERAPIST/PCP DR PEDERSON AND MED DR AT [facility], COVID VACC X3 AND HCP ON FILE FROM PREVIOUS ADMIT. ANTIC D/C TOMORROW 11/30 HOME W/RESUMP OF OUPT SERVICES.
[2022-11-29] MEDS: Gabapentin 300 MG CAPSULE 600 MG PO ×2 (14:40→20:06)
[2022-11-29] MEDS: 0.9 % Sodium Chloride Flush 3 ML SYRINGE IVFLUSH ×2 (14:41→23:39)
--- NOTE | 2022-11-29 14:46 | PC.NURSE ---
Patient reporting left sided chest pain, 10/10. Sharp, nonradiating. Anxious and scattered wheezes throughout lungs. BP 180/60. Dr. Cavazos notified and in to see patient. EKG ordered. Sinus Rhythm. Troponins neg. Encouraged slow deep breaths. Patient requesting tylenol. Given with a hot pack with good effect.
[2022-11-29] MEDS: OXcarbazepine 150 MG TABLET PO ×2 (14:51→20:07)
[2022-11-29] MEDS: guaiFENesin DM 100/10/5 ML 5 ML SYRUP 10 ML PO (14:51)
[2022-11-29] MEDS: cefTRIAXone sodium 1 GM in 0.9 % Sodium Chloride 50 ML IV (17:26)
[2022-11-29] MEDS: Azithromycin 500 MG in 0.9 % Sodium Chloride 250 ML 250 MG IV (19:51)
[2022-11-29] MEDS: Ketorolac Tromethamine 30 MG/ML VIAL IVPUSH (19:51)
[2022-11-29] MEDS: cloNIDine HCL 0.2 MG TABLET PO (20:06)
[2022-11-29] MEDS: rOPINIRole HCL 0.5 MG TABLET PO (20:06)
[2022-11-29] MEDS: OLANZapine 10 MG TABLET PO (20:07)
[2022-11-29] MEDS: valACYclovir HCL 1,000 MG TABLET 1000 MG PO (20:07)
[2022-11-29] MEDS: Lithium Carbonate 300 MG CAPSULE 600 MG PO (20:07)
[2022-11-30] MEDS: Ketorolac Tromethamine 30 MG/ML VIAL IVPUSH (01:28)
[2022-11-30 02:30] VITALS: PULSE 76; RESP 18; O2SAT 98
[2022-11-30 04:00] VITALS: BP 125/71; PULSE 65; RESP 18; TEMP 36.2; O2SAT 96
[2022-11-30] MEDS: Acetaminophen 325 MG TABLET 650 MG PO (04:51)
[2022-11-30] MEDS: Omeprazole 20 MG CAPSULE.DR PO (05:43)
[2022-11-30] MEDS: methylPREDNISolone Sod Succ 40 MG/ML VIAL IVPUSH (05:43)
[2022-11-30 07:47] VITALS: PULSE 79; RESP 18; O2SAT 96
[2022-11-30] MEDS: Albuterol/Iprat 2.5/0.5MG 3 ML AMPUL.NEB INHALE (07:47)
[2022-11-30] MEDS: Gabapentin 300 MG CAPSULE 600 MG PO (07:52)
[2022-11-30] MEDS: Cholecalciferol (Vitamin D3) 25 MCG TABLET PO (07:52)
[2022-11-30] MEDS: buPROPion HCl XL 150 MG TAB.ER.24H PO (07:52)
[2022-11-30] MEDS: Ferrous Sulfate 324 MG TABLET.DR PO (07:52)
[2022-11-30] MEDS: Lithium Carbonate 300 MG CAPSULE 600 MG PO (07:52)
[2022-11-30] MEDS: Benztropine Mesylate 1 MG TABLET PO (07:52)
[2022-11-30] MEDS: 0.9 % Sodium Chloride Flush 3 ML SYRINGE IVFLUSH (07:53)
[2022-11-30] MEDS: Cyanocobalamin (Vitamin B-12) 100 MCG TABLET PO (07:53)
[2022-11-30] MEDS: OXcarbazepine 150 MG TABLET PO (07:53)
[2022-11-30] MEDS: valACYclovir HCL 1,000 MG TABLET 1000 MG PO (07:53)
[2022-11-30 08:00] VITALS: BP 141/71; PULSE 83; RESP 18; TEMP 36.7
[2022-11-30] MEDS: guaiFENesin DM 100/10/5 ML 5 ML SYRUP 10 ML PO (08:27)
--- NOTE | 2022-11-30 11:45 | MHC.CM.PN ---
PT MEDICALLY CLEARED FOR D/C, PER HOSPITALIST PT CLEARED FOR CARE TEAM, [facility] SHUTTLE FOR TRANSPORT AT 12:30PM
--- NOTE | 2022-11-30 12:02 | P.DS_ITS ---
DS: Providers Provider Date of Service: 11/30/22 Date of admission: 11/28/22 19:15 Primary care physician: Unknown Physician Consults: 11/28/22 17:38 Consult to Care Team Stat Comment: Reason for consultation: increased anxiety/depression with SI thoughts 11/30/22 10:30 Consult to Care Team Routine Comment: Reason for consultation: Suicidal ideation patient medically cleared DS: Diagnosis Discharge Diagnosis (1) Asthma exacerbation with COPD (chronic obstructive pulmonary disease): Status: Acute (2) Pneumonia: Status: Acute DS: Summary Hospital Course Hospital Course: With no hold patient okay the Date of Service: 11/28/22 Attending physician on admission: Bertrand Caldwell Chief Complaint: SOB, productive cough Pt is a 52-year-old female with a PMH significant for?borderline personality disorder, bipolar disorder, anxiety, polysubstance abuse, COPD/asthma, hx recurrent UTI, osteoarthritis, and fibromyalgia who has had multiple psychiatric admissions?who presents to the ED with productive cough and worsening shortness of breath for the last 3 days.? Patient states her symptoms began 3 days ago when she developed a cough productive of purulent, yellow/morris sputum. Since then pt has had chest pressure, feeling like a horse is sitting on my chest. Patient has had shortness of breath and difficulty breathing with exertion, as well as diarrhea.? Patient denies fever, chills, nausea, vomiting.? No abdominal pain.? Patient has not noticed increasing edema in her legs, but notes that she has not been wearing compression stockings as prescribed, since these were lost during a recent move.? Of note,?patient also complained upon admission to the ED of increasing anxiety/depression with SI thoughts for the past 3 days.? She reported that she would either cut herself or jump in front of a car.? Patient currently denies any thoughts of self-harm. In the ED patient was hemodynamically stable, satting at 91% on room air. Labs were significant for lactic acid of 2.5, troponin negative, BNP negative. Patient tested negative for influenza types A and B, RSV, and COVID. CXR showed new patchy left basilar opacities suggestive of either atelectasis, aspiration or infection. EKG demonstrates normal sinus rhythm with no evidence of ST elevations or depressions. Pt was treated with Solu-Medrol, IVF, ceftriaxone, and DuoNebs. Pt will be admitted for observation for acute COPD exacerbation likely secondary to community-acquired pneumonia. Hospital course 52-year-old female with a PMH significant for?borderline personality disorder, bipolar disorder, anxiety, polysubstance abuse, COPD/asthma, hx recurrent UTI, osteoarthritis, and fibromyalgia who has had multiple psychiatric admissions ?presents to the ED with productive cough and worsening shortness of breath for the last 3 days chest X-ray showed new patchy left basilar opacities suspicious of atelectasis, aspiration, or infection, patient admitted to medical floor with a diagnosis of acute COPD exacerbation Likely secondary to pneumonia, treated with IV antibiotics, IV steroids scheduled and as needed DuoNeb treatment patient responded rapidly to above treatment she remained afebrile with a normal WBC count it seems that less likely she had pneumonia and most likely atelectasis therefore will discontinue antibiotic and discharge patient home on all home inhalers and cough medication she has been encouraged to use incentive spirometry Chest pain/pressure patient complained of chest pain, EKG showed no acute ischemia troponin remained negative , had tenderness to palpation likely musculoskeletal pain, no further workup. Suicidal ideation on admission patient mentioned about suicidal ideation therefore admitted with sitter patient subsequently seen by care team patient denies suicidal ideation and fell she was initially suicidal due to shortness of breath and pain therefore being discharged home to resume all home medications. Acute lactic acidosis likely due to updraft treatment, no sepsis. Mental health Continue home meds Time Spent with Patient Time attestation: Total time managing care of this patient today ____ minutes. Discharge coordination time: Greater than 30 minutes Quality: Safe Use of Opioids Does Pt have an Active Cancer Diagnosis on the Problem List?: No Quality: Stroke Does the patient have a stroke diagnosis?: No Physical Exam Vital Signs: Vital Signs: Last Vital Signs Temp 98.1 F 11/30/22 08:00 Pulse 83 11/30/22 08:00 Resp 18 11/30/22 08:00 BP 141/71 H 11/30/22 08:00 Pulse Ox 96 11/30/22 04:00 O2 Del Method 11/30/22 08:00 O2 Flow Rate 2 11/30/22 04:00 BMI result Body Mass Index 41.5 Const: Other: General awake alert x 3, in no acute distress.? Neck supple no JVD. CVS? regular rate rhythm, anterior chest wall tenderness to palpation Respiratory lungs clear, no respiratory distress, no crackles, no use of accessory muscles Gastrointestinal abdomen soft, nontender, bowel sounds audible,no guarding , no rigidity. Extremities no edema. Neuro nonfocal, moving all 4 extremity, speech clear. Skin no rash Psych appropriate affect DS: Data Data Completed and Pending Completed studies during hospitalization [Text1]: Procedures Assistance with Respiratory Ventilation, Less than 24 Consecutive Hours, Continuous Positive Airway Pressure (06/01/22) Drainage of Left Parotid Gland, Percutaneous Approach, Diagnostic (11/09/21) Drainage of Neck, Percutaneous Approach, Diagnostic (03/17/22) Excision of Left Parotid Gland, Percutaneous Approach, Diagnostic (03/17/22) Introduction of Remdesivir Anti-infective into Peripheral Vein, Percutaneous Approach, [employer] (06/01/22) Labs on day of discharge: Preliminary micro results at discharge 11/28/22 17:56 Blood Culture - Preliminary Blood - Venous No growth after 24 hours. 11/28/22 17:56 Blood Culture - Preliminary Blood - Venous No growth after 24 hours. Discharge Plan Discharge Patient Disposition: Home, Self-Care Discharge Diagnosis: Acute on chronic COPD exacerbation Musculoskeletal chest pain Referrals: Physician,Unknown J [Primary Care Provider] - 1 Week Discharge Medications: New dextromethorphan-guaifenesin 10-100 mg/5 mL Syrup 10 ml PO Q6H PRN (Reason: Cough) Qty: 237 0RF Continued albuterol sulfate 90 mcg/actuation HFA aerosol inhaler 2 puff inhalation Q4-6H PRN (Reason: shortness of breath or wheezing) 30 Days Qty: 1 0RF ferrous sulfate 324 mg (65 mg iron) tablet,delayed release (DR/EC) 324 mg PO DAILY 30 Days Qty: 30 0RF capsaicin 0.025 % cream 1 appl topical QID PRN (Reason: pain) oxcarbazepine 150 mg tablet 1 tab PO BID valacyclovir 1 gram tablet 1 tab PO BID benztropine 1 mg tablet 1 tab PO BID omeprazole 20 mg capsule,delayed release(DR/EC) 1 cap PO DAILY@0630 sertraline 50 mg tablet 50 mg PO DAILY cholecalciferol (vitamin D3) 25 mcg (1,000 unit) tablet 1 tab PO DAILY lithium carbonate 600 mg capsule 1 cap PO BID nitroglycerin 0.4 mg tablet, sublingual 0.4 mg sublingual Q5M PRN (Reason: Chest Pain) cyanocobalamin (vitamin B-12) 100 mcg tablet 1 tab PO DAILY olanzapine 10 mg tablet 1 tab PO BEDTIME Spiriva with HandiHaler 18 mcg capsule, w/inhalation device 1 cap inhalation DAILY ropinirole 0.5 mg Tablet 0.5 mg PO BEDTIME Rx Instructions: administer 1-3 hours before bedtime clonidine HCl 0.1 mg Tablet 0.2 mg PO BEDTIME bupropion HCl 150 mg Tablet Extended Release 24 Hr 150 mg PO QAM gabapentin 300 mg Capsule 600 mg PO TID Discharge Orders: Discharge Order (Routine); Ordered 11/30/22 Ordered By: Eric Cavazos Diet: Advance to usual diet Activity on Discharge: As tolerated Stand Alone Forms: Patient Portal Discharge page Care Plan Goals: Shortness of breath resolved, encourage deep breathing, no smoking cough medication as needed no further antibiotic recommend Health Concerns: Continue all home medication as before Plan of Treatment: Outpatient follow-up with PCP Assessment: As above
--- NOTE | 2022-11-30 13:07 | MHC.CARE ---
Pt was discharged home to follow up with current community providers.
== END 2022-11-30 12:15 | disposition home or self-care (01) ==
LOC: HO.ED 17:46 → HO.EDOVER 19:28 → HO.S3 19:47
PROVIDERS: Physician Assistant Medical; Admitting Provider Student in an Organized Health Care Education/Training Program; Emergency Provider Student in an Organized Health Care Education/Training Program; Visit Provider Hospitalist
DX: J18.9 Pneumonia, unspecified organism (principal); J44.1 Chronic obstructive pulmonary disease with (acute) exacerbation; R07.89 Other chest pain; E87.21 Acute metabolic acidosis; R06.02 Shortness of breath; R45.851 Suicidal ideations; Z20.822 Contact with and (suspected) exposure to COVID-19; Z20.828 Contact with and (suspected) exposure to other viral communicable diseases; F60.3 Borderline personality disorder; F31.9 Bipolar disorder, unspecified; F41.9 Anxiety disorder, unspecified; F19.10 Other psychoactive substance abuse, uncomplicated; F14.10 Cocaine abuse, uncomplicated; F17.210 Nicotine dependence, cigarettes, uncomplicated; Z90.49 Acquired absence of other specified parts of digestive tract; Z87.440 Personal history of urinary (tract) infections; Z59.01 Sheltered homelessness; Z79.899 Other long term (current) drug therapy
CPT/HCPCS: 0241U; 36415; 71045; 80053; 83605; 83735; 83880; 84484; 85025; 85610; 87040; 93005; 94640; 94660; 96361; 96365; 96366; 96367; 96372; 96375; 96376; 99221; 99285; J0456; J0696; J1650; J1885; J2270; J2920; J2930; J3475; S9485

== ENCOUNTER 2022-12-05 14:27 | Emergency (ER) | payer MEDICAID, SELFPAY ==
--- NOTE | ~2022-12-05 | XR_ITS ---
EXAMINATION: XR CHEST CLINICAL INFORMATION: Dyspnea COMPARISON: Chest x-ray on 11/28/2022 TECHNIQUE: Frontal view of the chest was obtained. FINDINGS: The cardiac silhouette is normal. There is mild diffuse bronchial wall thickening. There are no areas of consolidation. There are no pleural effusions or pneumothoraces. The bones and soft tissues are unremarkable for the patient's age. XR/XR chest 1V IMPRESSION: Bronchial wall thickening may be infectious and/or inflammatory in etiology.
[2022-12-05 14:35] VITALS: BP 124/98; BP 134/79; PULSE 82; PULSE 86; RESP 28; O2SAT 94; O2SAT 98; BMI 49.4
--- NOTE | 2022-12-05 14:35 | ECG_ITS ---
Test Reason : dyspnea Blood Pressure : / mmHG Vent. Rate : 082 BPM Atrial Rate : 082 BPM P-R Int : 132 ms QRS Dur : 086 ms QT Int : 358 ms P-R-T Axes : 023 015 021 degrees QTc Int : 418 ms Normal sinus rhythm Normal ECG When compared with ECG of 29-NOV-2022 08:34, No significant change was found Referred By: Jonas Perdomo Electronically Signed By:VAIBHAV KILLIAN MD
--- NOTE | 2022-12-05 14:36 | ED.ASTHMA ---
HPI - Asthma General Chief Complaint: Dyspnea Stated Complaint: Respiratory distress, wheezing per EMS Time Seen by Provider: 12/05/22 14:34 Source: patient Mode of arrival: EMS Limitations: physical limitation History of Present Illness HPI Narrative: 52-year-old female well-known to the ED most recently discharged from the hospital 2 days ago. Patient is not on oxygen at home end-stage COPD does not take her medications regularly also very high anxiety per EMS the patient was very anxious at home was started on CPAP and brought into the department. Patient usually needs very high-dose albuterol referred to feel better she did use 6 albuterol so home today. Patient denies fevers or chills she is not on oxygen at home she is still smoking and multiple substance abuse as well. MD complaint: asthma attack , shortness of breath and wheezing Related Data Home Medications Medication Instructions Recorded Confirmed capsaicin 0.025 % topical cream 1 appl topical QID PRN pain 07/02/22 12/05/22 benztropine 1 mg tablet 1 tab PO BID 07/23/22 12/05/22 cholecalciferol (vitamin D3) 25 1 tab PO DAILY 07/23/22 12/05/22 mcg (1,000 unit) tablet omeprazole 20 mg capsule,delayed 1 cap PO DAILY@0630 07/23/22 12/05/22 release oxcarbazepine 150 mg tablet 1 tab PO BID 07/23/22 12/05/22 sertraline 50 mg tablet 50 mg PO DAILY 07/23/22 12/05/22 valacyclovir 1 gram tablet 1 tab PO BID 07/23/22 12/05/22 lithium carbonate 600 mg capsule 1 cap PO BID 07/24/22 12/05/22 cyanocobalamin (vitamin B-12) 100 1 tab PO DAILY 08/06/22 12/05/22 mcg tablet nitroglycerin 0.4 mg sublingual 0.4 mg sublingual Q5M PRN Chest 08/06/22 12/05/22 tablet Pain olanzapine 10 mg tablet 1 tab PO BEDTIME 08/06/22 12/05/22 bupropion HCl 150 mg 24 hr tablet, 150 mg PO QAM 09/23/22 12/05/22 extended release clonidine HCl 0.1 mg tablet 0.2 mg PO BEDTIME 09/23/22 12/05/22 ropinirole 0.5 mg tablet 0.5 mg PO BEDTIME 09/23/22 12/05/22 tiotropium bromide 18 mcg capsule 1 cap inhalation DAILY 09/23/22 12/05/22 with inhalation device (Spiriva with HandiHaler) gabapentin 300 mg capsule 600 mg PO TID 11/29/22 12/05/22 Previous Rx's Medication Instructions Recorded albuterol sulfate 90 mcg/actuation 2 puff inhalation Q4-6H PRN 04/20/22 aerosol inhaler shortness of breath or wheezing 30 days #1 inhaler ferrous sulfate 324 mg (65 mg 324 mg PO DAILY 30 days #30 tabs 05/18/22 iron) tablet,delayed release dextromethorphan-guaifenesin 10 10 ml PO Q6H PRN Cough #237 mL 11/30/22 mg-100 mg/5 mL oral syrup Allergies Allergy/AdvReac Type Severity Reaction Status Date / Time aspirin [Aspirin] Allergy Severe HIVES,THROAT Verified 09/07/22 22:13 SWELLS bee pollen [BEE STINGS] Allergy Severe ANAPHYLAXIS Verified 09/07/22 22:13 diphenhydramine Allergy Severe hives, Verified 09/07/22 22:13 [From BENADRYL ALLERGY] throat swells Penicillins [PCN] Allergy Severe HIVES Verified 09/07/22 22:13 THROAT SWELLS Sulfa (Sulfonamide Allergy Intermediate HIVES Verified 09/07/22 22:13 Antibiotics) [SULFA (SULFONAMIDE ANTIBIOTICS)] tramadol [TRAMADOL] Allergy Intermediate ITCHING Verified 09/07/22 22:13 latex [LATEX] Allergy Unknown UNKNOWN Verified 09/07/22 22:13 penicillin G Allergy Unknown Unknown Verified 09/07/22 22:13 levofloxacin [From Levaquin] Allergy Hives Verified 09/07/22 22:13 hydroxyzine AdvReac Severe restless Verified 09/07/22 22:13 legs seafood AdvReac Stomach Verified 09/03/22 20:12 Upset Review of Systems Review of Systems: Review of systems: General: Patient denies any fever chills recent illness or falls Musculoskeletal: Denies back pain or body aches or other injuries HEENT: denies headache, runny nose, ear pain Respiratory: shortness of breath, cough Cardiovascular: no chest pain or palpitations : denies dysuria, frequency Abdomen: no nausea vomiting denies abdominal pain Extremities: no swelling, no pain Skin: no diaphoresis Yes all other systems are reviewed and are negative PMFSH Past Medical History Medical History Asthma exacerbation in COPD Asthma-COPD overlap syndrome Bipolar disorder Bipolar I disorder Borderline personality disorder COPD (chronic obstructive pulmonary disease) Depression Drug abuse Herpes Intermittent explosive disorder Mass of parotid gland FABIOLA (obstructive sleep apnea) Post traumatic stress disorder (PTSD) Pseudoseizures Tobacco use Surgical History History of ankle surgery History of appendectomy History of back surgery Hx of cholecystectomy Family History Family History Mother COPD (chronic obstructive pulmonary disease) Social History Social History Household Members: None Household Members Other:: Senior Living in [place] Housing: Apartment Housing Other:: Sleeps on the couch at [facility] house Do you presently have visiting nurse or other home services: Yes (twice a day) Unable to assess alcohol history related to: Unknown Alcohol intake: unknown Patient Tobacco Use Status: Current everyday Tobacco user Tobacco use type: Cigarette Cigarette Packs Per Day: 3 Cigarettes Per Day: 10 Years Smoked: 34 Smoked in Last 30 Days: Yes e-Cigarette/Vaping Use: Former Use Second Hand Smoke Exposure: No Substance Use Type: Crack/Cocaine Advance Directives: Yes Advance Directives on File: Yes Advance Directives Date on File: 06/17/22 service: No Current occupational status: unemployed and disabled Sexual orientation: Straight/Heterosexual Physical Exam Vital Signs: Vital Signs: Last Vital Signs Pulse 97 12/05/22 15:48 Resp 18 12/05/22 15:48 BP 134/64 12/05/22 15:48 Pulse Ox 95 12/05/22 15:48 O2 Del Method 12/05/22 15:48 BMI result Body Mass Index 49.4 General: Anxious Well-appearing well-nourished in no signs of distress HEENT: Normocephalic atraumatic Neck: No signs of JVD, no masses no tenderness or lymphadenopathy Cardiovascular: Regular rate and rhythm Respiratory: Harsh breath sounds associated with CPAP Abdomen: Soft nontender no masses Extremities: Normal pedal pulses no signs of edema Skin: Dry warm no rashes Back: No tenderness full ROM Medications Administered Discontinued Medications Generic Name Dose Route Start Last Admin Trade Name Jacob PRN Reason Stop Dose Admin Albuterol Sulfate 10 mg 12/05/22 14:35 12/05/22 14:43 Albuterol Sulfate (0.083%) 2.5 Mg/3 Ml Vial.Neb INHALE 12/05/22 14:36 10 mg ONCE ONE Administration Sodium Chloride 1,000 mls @ 999 mls/hr 12/05/22 14:45 12/05/22 14:54 Ns IV 12/05/22 15:45 999 mls/hr .Q1H1M TEJA Administration Lorazepam 1 mg 12/05/22 14:35 12/05/22 14:54 Lorazepam 2 Mg/Ml Vial IVPUSH 12/05/22 14:36 1 mg ONCE ONE Administration Medical Decision Making Medical Decision Making [facility] Narrative: 52-year-old female presents emergency department on BiPAP as respiratory distress EMS seen immediately upon arrival patient is well known to the Department patient usually does well with breathing treatments patient also has a long psych history. Patient appears very anxious I will give patient Haldol and Ativan on arrival as well as a long albuterol only the patient on BiPAP. Patient on bipap for about 1 hour I did trial the patient off BiPAP patient is speaking full sentences while on BiPAP x-ray and labs are unremarkable. Patient did well feeling much better I will send home with PCP efrain queen. Yes patient is on steroids already. Differential Diagnosis Differential Diagnoses: The differential diagnosis associated with the presentation includes Anxiety versus COPD versus asthma exacerbation Admission/Observation Consideration of admission/observation: Escalation of care including admission/observation considered Differential diagnosis anxiety COPD respiratory distress respiratory failure. Consult Healthcare Provider Management of the patient was discussed with: Hospitalist Lab Data [facility] Lab Attestation statement: I reviewed the patient's lab results. 12/05/22 14:46 12/05/22 14:46 Labs: Lab Results 12/05/22 12/05/22 12/05/22 Range/Units 14:46 14:46 14:46 WBC 13.4 H (4.8-10.8) X10*3/uL RBC 4.27 (4.20-5.50) X10*6/uL Hgb 12.8 (12.0-16.0) g/dl Hct 39.5 (37.0-47.0) % MCV 92.5 (80.0-98.0) fL MCH 30.0 (27.0-33.0) pg MCHC 32.4 (31.0-35.0) g/dl RDW 13.9 (11.0-16.0) % Plt Count 311 (160-400) X10*3/uL MPV 9.4 (9.4-12.3) fL Immature Gran % (Auto) 0.5 H (0.0-0.4) % Neut % (Auto) 59.6 (45-73) % Lymph % (Auto) 32.4 (20-40) % Emanuel % (Auto) 5.3 (2-11) % Eos % (Auto) 1.5 (0-4) % Baso % (Auto) 0.7 (0-2) % Lymph # (Auto) 4.3 (1.2-4.9) X10*3/uL Emanuel # (Auto) 0.7 (0.1-1.2) X10*3/uL Eos # (Auto) 0.2 (0.0-0.4) X10*3/uL Baso # (Auto) 0.1 (0.0-0.2) X10*3/uL Abs Immat Gran (auto) 0.07 H (0.00-0.03) X10*3/uL Absolute Neuts (auto) 8.0 (2.0-8.3) x10*3/uL Absolute Nucleated RBC 0.000 (0.0-0.012) X10*3/uL Nucleated RBC % (auto) 0.0 (0.0-0.2) /100WBC Sodium 141 (135-145) mmol/L Potassium 4.8 (3.3-5.1) mmol/L Chloride 105 (96-108) mmol/L Carbon Dioxide 27 (22-29) mmol/L Anion Gap 14 (12-20) BUN 18 H (9-16) mg/dL Creatinine 0.68 (0.5-1.4) mg/dL Estim Creat Clear Calc 122.1 Estimated GFR > 60 Random Glucose 96 (60-115) mg/dL Calcium 9.7 D (8.4-10.2) mg/dL Total Bilirubin 0.3 (0.0-1.0) mg/dL Direct Bilirubin < 0.2 (0.0-0.5) mg/dL AST 14 (5-31) U/L ALT 17 (0-31) U/L Alkaline Phosphatase 76 (39-117) U/L Troponin I High Sens < 3.5 (<3.5-17.0) ng/L Total Protein 6.5 (6.5-8.0) g/dL Albumin 4.1 (3.5-5.0) g/dL Lipase 23 (8-78) U/L Independent Interpretation I performed an independent interpretation of an: EKG and Plain X-Ray Interpretation: RAte 82 nsr normal intervals no signs of ichemia Radiology Impression Discussion of test interpretation with radiology: I have reviewed the radiologist's reading. Critical Care Time Critical Care Time Critical Care Time: Yes Total Critical Care Time: 35 Attestation: Patient here on CPAP in acute respiratory distress patient needed breathing treatments and steroids patient doing much better I feel comfortable sending home with PCP follow-up Discharge Plan Discharge Clinical Impression: Asthma exacerbation, Tobacco use disorder Patient Disposition: Home, Self-Care Instructions: Asthma (ED), How to Use a Nebulizer (ED) Additional Instructions: Please call to follow up with your doctor. Prescriptions: No Action albuterol sulfate 90 mcg/actuation HFA aerosol inhaler 2 puff inhalation Q4-6H PRN (Reason: shortness of breath or wheezing) 30 Days Qty: 1 0RF ferrous sulfate 324 mg (65 mg iron) tablet,delayed release (DR/EC) 324 mg PO DAILY 30 Days Qty: 30 0RF capsaicin 0.025 % cream 1 appl topical QID PRN (Reason: pain) oxcarbazepine 150 mg tablet 1 tab PO BID valacyclovir 1 gram tablet 1 tab PO BID benztropine 1 mg tablet 1 tab PO BID omeprazole 20 mg capsule,delayed release(DR/EC) 1 cap PO DAILY@0630 sertraline 50 mg tablet 50 mg PO DAILY cholecalciferol (vitamin D3) 25 mcg (1,000 unit) tablet 1 tab PO DAILY lithium carbonate 600 mg capsule 1 cap PO BID nitroglycerin 0.4 mg tablet, sublingual 0.4 mg sublingual Q5M PRN (Reason: Chest Pain) cyanocobalamin (vitamin B-12) 100 mcg tablet 1 tab PO DAILY olanzapine 10 mg tablet 1 tab PO BEDTIME Spiriva with HandiHaler 18 mcg capsule, w/inhalation device 1 cap inhalation DAILY ropinirole 0.5 mg Tablet 0.5 mg PO BEDTIME Rx Instructions: administer 1-3 hours before bedtime clonidine HCl 0.1 mg Tablet 0.2 mg PO BEDTIME bupropion HCl 150 mg Tablet Extended Release 24 Hr 150 mg PO QAM gabapentin 300 mg Capsule 600 mg PO TID dextromethorphan-guaifenesin 10-100 mg/5 mL Syrup 10 ml PO Q6H PRN (Reason: Cough) Qty: 237 0RF
[2022-12-05 14:43] VITALS: PULSE 84; RESP 28; O2SAT 97
[2022-12-05] MEDS: Albuterol Sulfate (0.083%) 2.5 MG/3 ML VIAL.NEB 10 MG INHALE (14:43)
[2022-12-05 14:46] VITALS: PULSE 88; RESP 26; O2SAT 96
[2022-12-05 14:49] LABS: MANUAL DIFF FLAG NO
[2022-12-05 14:50] LABS: Basophils Absolute Auto 0.1 X10*3/uL (0.0-0.2); Basophils Percent Auto 0.7 % (0-2); Eosinophils Absolute Auto 0.2 X10*3/uL (0.0-0.4); Eosinophils Percent Auto 1.5 % (0-4); Hematocrit 39.5 % (37.0-47.0); Hemoglobin 12.8 g/dl (12.0-16.0); Imm Gran Abs Auto 0.07 X10*3/uL (0.00-0.03); Imm Gran Pct Auto 0.5 % (0.0-0.4); Lymphocytes Absolute Auto 4.3 X10*3/uL (1.2-4.9); Lymphocytes Percent Auto 32.4 % (20-40); Mean Corpuscular HGB Conc 32.4 g/dl (31.0-35.0); Mean Corpuscular Volume 92.5 fL (80.0-98.0); Mean Platelet Volume 9.4 fL (9.4-12.3); Monocytes Absolute Auto 0.7 X10*3/uL (0.1-1.2); Monocytes Percent Auto 5.3 % (2-11); Neutrophils Percent Auto 59.6 % (45-73); Platelet Count 311 X10*3/uL (160-400); Red Blood Count 4.27 X10*6/uL (4.20-5.50); Red Cell Distribution Width 13.9 % (11.0-16.0); White Blood Count 13.4 X10*3/uL (4.8-10.8)
--- NOTE | 2022-12-05 14:52 | PHA.MEDREC ---
Pharmacy Consult ? Medication Reconciliation Pharmacy has completed the medication reconciliation. Utilized med list from previous discharge
[2022-12-05] MEDS: 0.9 % Sodium Chloride 1,000 ML 999 ML IV (14:54)
[2022-12-05] MEDS: LORazepam 2 MG/ML VIAL 1 MG IVPUSH (14:54)
[2022-12-05 15:08] LABS: Alanine Aminotransferase 17 U/L (0-31); Albumin Level 4.1 g/dL (3.5-5.0); Alkaline Phosphatase 76 U/L (39-117); Anion Gap 14 (12-20); Aspartate Amino Transferase 14 U/L (5-31); Bilirubin Direct < 0.2 mg/dL (0.0-0.5); Bilirubin Total 0.3 mg/dL (0.0-1.0); Blood Urea Nitrogen 18 mg/dL (9-16); Calcium 9.7 mg/dL (8.4-10.2); Carbon Dioxide 27 mmol/L (22-29); Chloride 105 mmol/L (96-108); Creatinine Clr Calc Pharmacy 122.1; Estimated Glomerular Filt Rate > 60; Glucose Random 96 mg/dL (60-115); Lipase 23 U/L (8-78); Potassium 4.8 mmol/L (3.3-5.1); Sodium 141 mmol/L (135-145); Total Protein 6.5 g/dL (6.5-8.0)
[2022-12-05 15:14] LABS: Troponin-I High Sensitivity < 3.5 ng/L (<3.5-17.0)
[2022-12-05 15:48] VITALS: BP 134/64; PULSE 97; RESP 18; O2SAT 95
[2022-12-05] MEDS: predniSONE 20 MG TABLET 60 MG PO (15:50)
--- NOTE | 2022-12-05 16:37 | PC.NURSE ---
Pt awaiting Lyft for transportation to mothers house. States she feels completely better, drinking coffee and watching tv
== END 2022-12-05 16:55 | disposition home or self-care (01) ==
PROVIDERS: Emergency Provider Student in an Organized Health Care Education/Training Program; PCP Internal Medicine
DX: J45.901 Unspecified asthma with (acute) exacerbation (principal); R06.02 Shortness of breath; F14.90 Cocaine use, unspecified, uncomplicated; F17.200 Nicotine dependence, unspecified, uncomplicated; Z71.6 Tobacco abuse counseling; Z79.899 Other long term (current) drug therapy
CPT/HCPCS: 36415; 71045; 80048; 80076; 83690; 84484; 85025; 93005; 94640; 96361; 96374; 96375; 99285; J2060

== ENCOUNTER 2022-12-12 20:08 | Emergency (ER) | payer MEDICAID, OTHER, SELFPAY ==
--- NOTE | 2022-12-12 | ECG_ITS ---
Test Reason : overdosed /si Blood Pressure : / mmHG Vent. Rate : 079 BPM Atrial Rate : 079 BPM P-R Int : 142 ms QRS Dur : 082 ms QT Int : 392 ms P-R-T Axes : 176 163 171 degrees QTc Int : 449 ms Suspect limb lead reversal, interpretation assumes no reversal Unusual P axis, possible ectopic atrial rhythm Lateral infarct , age undetermined Inferior infarct , age undetermined Abnormal ECG When compared with ECG of 05-DEC-2022 15:42, Significant changes have occurred Referred By: Generic ED Physician Electronically Signed By:
[2022-12-12 20:11] VITALS: BP 160/100; PULSE 100; O2SAT 95
[2022-12-12 20:19] VITALS: BP 102/54; PULSE 83; RESP 18; TEMP 37; O2SAT 90; BMI 45.6
--- NOTE | 2022-12-12 20:20 | MHC.EDTECH ---
patient came via [facility] ,pt was moved to stretcher ,vitals sign taken ,ekg done ,pt was hooked up to multifocal lens assembler ,pt got change into hospital attire ,blood drawn and sent to lab ,pt is resting ,pt belongings locked up in pod .
[2022-12-12 20:54] LABS: MANUAL DIFF FLAG NO
[2022-12-12 20:55] LABS: Basophils Absolute Auto 0.1 X10*3/uL (0.0-0.2); Basophils Percent Auto 0.8 % (0-2); Eosinophils Absolute Auto 0.2 X10*3/uL (0.0-0.4); Eosinophils Percent Auto 1.7 % (0-4); Hematocrit 37.3 % (37.0-47.0); Imm Gran Abs Auto 0.05 X10*3/uL (0.00-0.03); Imm Gran Pct Auto 0.5 % (0.0-0.4); Lymphocytes Percent Auto 28.3 % (20-40); Mean Corpuscular HGB Conc 32.2 g/dl (31.0-35.0); Mean Corpuscular Hemoglobin 30.3 pg (27.0-33.0); Mean Corpuscular Volume 94.2 fL (80.0-98.0); Mean Platelet Volume 9.2 fL (9.4-12.3); Monocytes Absolute Auto 0.7 X10*3/uL (0.1-1.2); Neutrophils Absolute Auto 6.7 x10*3/uL (2.0-8.3); Neutrophils Percent Auto 62.7 % (45-73); Platelet Count 254 X10*3/uL (160-400); Red Blood Count 3.96 X10*6/uL (4.20-5.50); Red Cell Distribution Width 14.4 % (11.0-16.0); White Blood Count 10.8 X10*3/uL (4.8-10.8)
[2022-12-12 21:11] LABS: Alanine Aminotransferase 16 U/L (0-31); Alkaline Phosphatase 72 U/L (39-117); Anion Gap 11 (12-20); Aspartate Amino Transferase 12 U/L (5-31); Bilirubin Total < 0.2 mg/dL (0.0-1.0); Blood Urea Nitrogen 16 mg/dL (9-16); Carbon Dioxide 26 mmol/L (22-29); Chloride 106 mmol/L (96-108); Creatinine Clr Calc Pharmacy 127.7; Estimated Glomerular Filt Rate > 60; Glucose Random 94 mg/dL (60-115); Potassium 4.3 mmol/L (3.3-5.1); Sodium 139 mmol/L (135-145); Total Protein 6.2 g/dL (6.5-8.0)
[2022-12-12 21:28] VITALS: BP 105/62; PULSE 76; RESP 16; TEMP 36.9; O2SAT 93
--- NOTE | 2022-12-12 21:35 | MHC.EDTECH ---
pt sleeping ,vitals sign taken ,repeated labs drawn and send to lab .
--- NOTE | 2022-12-12 21:38 | PC.NURSE ---
pt drowsy, slurred speech, reports SI attempt by taking 4 x 400mg gabapentin, O2 88-90 on RA, O2 applied at 2L, pt changed by tech and belongings secured, 1:1 at bedside.
[2022-12-12 22:01] LABS: Acetaminophen LAB < 17 mcg/mL (<30); Ethanol < 10 mg/dL; Lipase 35 U/L (8-78); Salicylate < 5.0 mg/dL (15-30); Troponin-I High Sensitivity 3.5 ng/L (<3.5-17.0)
--- NOTE | 2022-12-12 23:17 | ED_ITS ---
HPI - Overdose General Chief Complaint: Overdose Stated Complaint: Crisis/OD Time Seen by Provider: 12/12/22 20:51 Source: patient and EMS Mode of arrival: ambulatory Limitations: no limitations History of Present Illness HPI Narrative: Patient comes to the emergency room complaining an overdose of gabapentin. The re are 2 stories, EMS reports that the [facility] staff said that the staff accidentally gave her 1600 mg of gabapentin instead of spacing it throughout the day. However, the patient states that she took this medications, 1600 mg of gabapentin at once with intention of hurting herself. Overall, patient took 60 mg of gabapentin at once. Related Data Home Medications Medication Instructions Recorded Confirmed capsaicin 0.025 % topical cream 1 appl topical QID PRN pain 07/02/22 12/05/22 benztropine 1 mg tablet 1 tab PO BID 07/23/22 12/05/22 cholecalciferol (vitamin D3) 25 1 tab PO DAILY 07/23/22 12/05/22 mcg (1,000 unit) tablet omeprazole 20 mg capsule,delayed 1 cap PO DAILY@0630 07/23/22 12/05/22 release oxcarbazepine 150 mg tablet 1 tab PO BID 07/23/22 12/05/22 sertraline 50 mg tablet 50 mg PO DAILY 07/23/22 12/05/22 valacyclovir 1 gram tablet 1 tab PO BID 07/23/22 12/05/22 lithium carbonate 600 mg capsule 1 cap PO BID 07/24/22 12/05/22 cyanocobalamin (vitamin B-12) 100 1 tab PO DAILY 08/06/22 12/05/22 mcg tablet nitroglycerin 0.4 mg sublingual 0.4 mg sublingual Q5M PRN Chest 08/06/22 12/05/22 tablet Pain olanzapine 10 mg tablet 1 tab PO BEDTIME 08/06/22 12/05/22 bupropion HCl 150 mg 24 hr tablet, 150 mg PO QAM 09/23/22 12/05/22 extended release clonidine HCl 0.1 mg tablet 0.2 mg PO BEDTIME 09/23/22 12/05/22 ropinirole 0.5 mg tablet 0.5 mg PO BEDTIME 09/23/22 12/05/22 tiotropium bromide 18 mcg capsule 1 cap inhalation DAILY 09/23/22 12/05/22 with inhalation device (Spiriva with HandiHaler) gabapentin 300 mg capsule 600 mg PO TID 11/29/22 12/05/22 Previous Rx's Medication Instructions Recorded albuterol sulfate 90 mcg/actuation 2 puff inhalation Q4-6H PRN 04/20/22 aerosol inhaler shortness of breath or wheezing 30 days #1 inhaler ferrous sulfate 324 mg (65 mg 324 mg PO DAILY 30 days #30 tabs 05/18/22 iron) tablet,delayed release dextromethorphan-guaifenesin 10 10 ml PO Q6H PRN Cough #237 mL 11/30/22 mg-100 mg/5 mL oral syrup Allergies Allergy/AdvReac Type Severity Reaction Status Date / Time aspirin [Aspirin] Allergy Severe HIVES,THROAT Verified 12/12/22 20:19 SWELLS bee pollen [BEE STINGS] Allergy Severe ANAPHYLAXIS Verified 12/12/22 20:19 diphenhydramine Allergy Severe hives, Verified 12/12/22 20:19 [From BENADRYL ALLERGY] throat swells Penicillins [PCN] Allergy Severe HIVES Verified 12/12/22 20:19 THROAT SWELLS Sulfa (Sulfonamide Allergy Intermediate HIVES Verified 12/12/22 20:19 Antibiotics) [SULFA (SULFONAMIDE ANTIBIOTICS)] tramadol [TRAMADOL] Allergy Intermediate ITCHING Verified 12/12/22 20:19 latex [LATEX] Allergy Unknown UNKNOWN Verified 12/12/22 20:19 penicillin G Allergy Unknown Unknown Verified 12/12/22 20:19 levofloxacin [From Levaquin] Allergy Hives Verified 12/12/22 20:19 hydroxyzine AdvReac Severe restless Verified 12/12/22 20:19 legs seafood AdvReac Stomach Verified 12/12/22 20:19 Upset Review of Systems Review of Systems: Constitutional : No Weight loss, No Fever, No Chills, No Night Sweats, No Fatigue, No Malaise ENT/Mouth : No Hearing loss, No Ear Pain, No Nasal Congestion, No Sinus Pain, No Hoarseness, No sore throat, No Rhinorrhea, No Swallowing Difficulty Eyes: No Eye Pain, No Swelling, No Redness, No Foreign Body, No Discharge, No Vision Changes Cardiovascular : No Chest Pain, No SOB, No Dyspnea on Exertion, No Orthopnea, No Edema, No Palpitations Respiratory : No Cough, No Sputum, No Wheezing, No Smoke Exposure, No Dyspnea Gastrointestinal : No Nausea, No Vomiting, No Diarrhea, No Constipation, No abdominal Pain, No Hematochezia, No Melena Genitourinary : no irregular bleeding, No Dysuria, No Urinary Frequency, No Hematuria, No Urinary Incontinence, No Urgency, No Flank Pain, No Urinary Flow Changes, No Hesitancy Musculoskeletal : No joint pain, No Myalgias, No Joint Swelling Skin : No Skin Lesions, No rash Neuro : No Weakness, No Numbness, No Paresthesias, No Loss of Consciousness, No Dizziness, No Headache Psych : Suicidal ideation Heme/Lymph: No Bruising, No Bleeding,No Lymphadenopathy Endocrine : No Polyuria, No Polydipsia, No Temperature Intolerance [facility] Past Medical History Medical History Asthma exacerbation in COPD Asthma-COPD overlap syndrome Bipolar disorder Bipolar I disorder Borderline personality disorder COPD (chronic obstructive pulmonary disease) Depression Drug abuse Herpes Intermittent explosive disorder Mass of parotid gland FABIOLA (obstructive sleep apnea) Post traumatic stress disorder (PTSD) Pseudoseizures Tobacco use Surgical History History of ankle surgery History of appendectomy History of back surgery Hx of cholecystectomy Family History Family History Mother COPD (chronic obstructive pulmonary disease) Social History Social History Household Members: None Household Members Other:: Halfway in [place] Housing: Apartment Housing Other:: Sleeps on the couch at [facility] house Do you presently have visiting nurse or other home services: Yes (twice a day) Unable to assess alcohol history related to: Unknown Alcohol intake: unknown Patient Tobacco Use Status: Current everyday Tobacco user Tobacco use type: Cigarette Cigarette Packs Per Day: 3 Cigarettes Per Day: 10 Years Smoked: 34 e-Cigarette/Vaping Use: Former Use Second Hand Smoke Exposure: No Substance Use Type: Crack/Cocaine Advance Directives: Yes Advance Directives on File: Yes Advance Directives Date on File: 06/17/22 service: No Current occupational status: unemployed and disabled Sexual orientation: Straight/Heterosexual Physical Exam Vital Signs: Vital Signs: Last Vital Signs Temp 98.4 F 12/12/22 23:37 Pulse 73 12/12/22 23:37 Resp 16 12/12/22 23:37 BP 99/57 L 12/12/22 23:37 Pulse Ox 95 12/12/22 23:37 O2 Del Method 12/12/22 23:37 O2 Flow Rate 2 12/12/22 23:37 BMI result Body Mass Index 45.6 Const: Other: Appearance: Alert. Oriented X3. No acute distress. Very somnolent Eyes: Pupils equal, round and reactive to light. ENT: Pharynx normal. Neck: Normal inspection. Neck supple. No lymph nodes noted. No crepitus CVS: Normal heart rate and rhythm. Pulses normal. Normal S1 and S2 Respiratory: No respiratory distress. Breath sounds normal. No Wheezing. No rales Abdomen: Soft and nontender. No rigidity. No distention. Skin: Skin warm and dry. Normal skin color. Normal skin turgor. Extremities: No lower extremity edema. No Lacerations. No Rash Neuro: CN 2 through 12 grossly intact Psych: calm, cooperative, normal affect Course Course Course Narrative: -we will obtain labs -we will also contact poison Control. However, 1800 mg of gabapentin per day is max dose. Unlikely to have any significant side effects other than somnolence. -Care team consult pending Medical Decision Making Medical Decision Making [facility] Narrative: -the patient's labs at baseline -poison control was contacted, they do not have any further suggestions -care consult pending -physician the observation started at 23:25 Differential Diagnosis Differential Diagnoses: The differential diagnosis associated with the presentation includes Admission/Observation Consideration of admission/observation: Escalation of care including admission/observation considered (Patient is under physician supervision, waiting to be seen by the care team. ) Lab Data [facility] Lab Attestation statement: I reviewed the patient's lab results. 12/12/22 20:49 12/12/22 20:49 Labs: Lab Results 12/12/22 12/12/22 12/12/22 Range/Units 20:49 20:49 21:34 WBC 10.8 (4.8-10.8) X10*3/uL RBC 3.96 L (4.20-5.50) X10*6/uL Hgb 12.0 (12.0-16.0) g/dl Hct 37.3 (37.0-47.0) % MCV 94.2 (80.0-98.0) fL MCH 30.3 (27.0-33.0) pg MCHC 32.2 (31.0-35.0) g/dl RDW 14.4 (11.0-16.0) % Plt Count 254 (160-400) X10*3/uL MPV 9.2 L (9.4-12.3) fL Immature Gran % (Auto) 0.5 H (0.0-0.4) % Neut % (Auto) 62.7 (45-73) % Lymph % (Auto) 28.3 (20-40) % [place] % (Auto) 6.0 (2-11) % Eos % (Auto) 1.7 (0-4) % Baso % (Auto) 0.8 (0-2) % Lymph # (Auto) 3.0 (1.2-4.9) X10*3/uL [place] # (Auto) 0.7 (0.1-1.2) X10*3/uL Eos # (Auto) 0.2 (0.0-0.4) X10*3/uL Baso # (Auto) 0.1 (0.0-0.2) X10*3/uL Abs Immat Gran (auto) 0.05 H (0.00-0.03) X10*3/uL Absolute Neuts (auto) 6.7 (2.0-8.3) x10*3/uL Absolute Nucleated RBC 0.000 (0.0-0.012) X10*3/uL Nucleated RBC % (auto) 0.0 (0.0-0.2) /100WBC Sodium 139 (135-145) mmol/L Potassium 4.3 (3.3-5.1) mmol/L Chloride 106 (96-108) mmol/L Carbon Dioxide 26 (22-29) mmol/L Anion Gap 11 L (12-20) BUN 16 (9-16) mg/dL Creatinine 0.69 (0.5-1.4) mg/dL Estim Creat Clear Calc 127.7 Estimated GFR > 60 Random Glucose 94 (60-115) mg/dL Calcium 9.0 D (8.4-10.2) mg/dL Total Bilirubin < 0.2 (0.0-1.0) mg/dL AST 12 (5-31) U/L ALT 16 (0-31) U/L Alkaline Phosphatase 72 (39-117) U/L Troponin I High Sens 3.5 (<3.5-17.0) ng/L Total Protein 6.2 L (6.5-8.0) g/dL Albumin 4.0 (3.5-5.0) g/dL Lipase (8-78) U/L Salicylates (15-30) mg/dL Acetaminophen (<30) mcg/mL Ethyl Alcohol mg/dL 12/12/22 Range/Units 21:34 WBC (4.8-10.8) X10*3/uL RBC (4.20-5.50) X10*6/uL Hgb (12.0-16.0) g/dl Hct (37.0-47.0) % MCV (80.0-98.0) fL MCH (27.0-33.0) pg MCHC (31.0-35.0) g/dl RDW (11.0-16.0) % Plt Count (160-400) X10*3/uL MPV (9.4-12.3) fL Immature Gran % (Auto) (0.0-0.4) % Neut % (Auto) (45-73) % Lymph % (Auto) (20-40) % [place] % (Auto) (2-11) % Eos % (Auto) (0-4) % Baso % (Auto) (0-2) % Lymph # (Auto) (1.2-4.9) X10*3/uL [place] # (Auto) (0.1-1.2) X10*3/uL Eos # (Auto) (0.0-0.4) X10*3/uL Baso # (Auto) (0.0-0.2) X10*3/uL Abs Immat Gran (auto) (0.00-0.03) X10*3/uL Absolute Neuts (auto) (2.0-8.3) x10*3/uL Absolute Nucleated RBC (0.0-0.012) X10*3/uL Nucleated RBC % (auto) (0.0-0.2) /100WBC Sodium (135-145) mmol/L Potassium (3.3-5.1) mmol/L Chloride (96-108) mmol/L Carbon Dioxide (22-29) mmol/L Anion Gap (12-20) BUN (9-16) mg/dL Creatinine (0.5-1.4) mg/dL Estim Creat Clear Calc Estimated GFR Random Glucose (60-115) mg/dL Calcium (8.4-10.2) mg/dL Total Bilirubin (0.0-1.0) mg/dL AST (5-31) U/L ALT (0-31) U/L Alkaline Phosphatase (39-117) U/L Troponin I High Sens (<3.5-17.0) ng/L Total Protein (6.5-8.0) g/dL Albumin (3.5-5.0) g/dL Lipase 35 (8-78) U/L Salicylates < 5.0 L (15-30) mg/dL Acetaminophen < 17 (<30) mcg/mL Ethyl Alcohol < 10 mg/dL Independent Interpretation I performed an independent interpretation of an: EKG (My EKG interpretation:) Discharge Plan Discharge Clinical Impression: Accidental medication overdose Patient Disposition: Still a Patient Prescriptions: No Action albuterol sulfate 90 mcg/actuation HFA aerosol inhaler 2 puff inhalation Q4-6H PRN (Reason: shortness of breath or wheezing) 30 Days Qty: 1 0RF ferrous sulfate 324 mg (65 mg iron) tablet,delayed release (DR/EC) 324 mg PO DAILY 30 Days Qty: 30 0RF capsaicin 0.025 % cream 1 appl topical QID PRN (Reason: pain) oxcarbazepine 150 mg tablet 1 tab PO BID valacyclovir 1 gram tablet 1 tab PO BID benztropine 1 mg tablet 1 tab PO BID omeprazole 20 mg capsule,delayed release(DR/EC) 1 cap PO DAILY@0630 sertraline 50 mg tablet 50 mg PO DAILY cholecalciferol (vitamin D3) 25 mcg (1,000 unit) tablet 1 tab PO DAILY lithium carbonate 600 mg capsule 1 cap PO BID nitroglycerin 0.4 mg tablet, sublingual 0.4 mg sublingual Q5M PRN (Reason: Chest Pain) cyanocobalamin (vitamin B-12) 100 mcg tablet 1 tab PO DAILY olanzapine 10 mg tablet 1 tab PO BEDTIME Spiriva with HandiHaler 18 mcg capsule, w/inhalation device 1 cap inhalation DAILY ropinirole 0.5 mg Tablet 0.5 mg PO BEDTIME Rx Instructions: administer 1-3 hours before bedtime clonidine HCl 0.1 mg Tablet 0.2 mg PO BEDTIME bupropion HCl 150 mg Tablet Extended Release 24 Hr 150 mg PO QAM gabapentin 300 mg Capsule 600 mg PO TID dextromethorphan-guaifenesin 10-100 mg/5 mL Syrup 10 ml PO Q6H PRN (Reason: Cough) Qty: 237 0RF Interventions: Oliver-Suicide Risk Severity Scale Last Done: 12/12/22 20:38
--- NOTE | 2022-12-12 23:30 | PC.NURSE ---
spoke with poison control per request of Dr. dyson, poison control recommends watching pt for 4 hours minimum for seizure activity, or until pt is awake and alert. MD [place]
--- NOTE | 2022-12-12 23:36 | MHC.EDTECH ---
PATIENT REPEATED EKG DONE AT 2331 ,VITALS SIGN TAKEN AT THIS TIME .
[2022-12-12 23:37] VITALS: BP 99/57; PULSE 73; RESP 16; TEMP 36.9; O2SAT 95
--- NOTE | 2022-12-13 00:39 | PC.NURSE ---
pt continues to sleep, no apparent distress, VSS, respirations are even and unlabored
[2022-12-13 02:00] VITALS: BP 104/66; PULSE 70; RESP 16; TEMP 36.6; O2SAT 94
--- NOTE | 2022-12-13 02:04 | MHC.EDTECH ---
0200 rounding and vitals sign taken ,pt still sleeping ,this pct is providing 1:1 with patient .
--- NOTE | 2022-12-13 02:49 | PC.NURSE ---
pt woke up for a few minutes, drank sip of water, back to sleep at this time. Denies pain, denies SOB
--- NOTE | 2022-12-13 04:35 | PC.NURSE ---
Took over care at 3:20am pt is sleeping no sign of distress, pt remains on a 1:1. Will continue to monitor.
[2022-12-13 04:42] VITALS: BP 104/61; PULSE 69; RESP 15; TEMP 37; O2SAT 94
--- NOTE | 2022-12-13 06:09 | PC.NURSE ---
pt reports not being SI at this time, pt depressed due to cancer and felt like ending her life.
[2022-12-13 07:02] VITALS: BP 132/67; PULSE 86; RESP 18; O2SAT 94
--- NOTE | 2022-12-13 07:15 | PC.NURSE ---
Patient is watch for safety denies suicidal ideation and suicide attempt states nurse gave me too much gabapentin . AOx 4 neuros intact trial off O2 while awake uses C-Pap at home when sleeping. will CTM
--- NOTE | 2022-12-13 07:36 | ECG_ITS ---
Test Reason : SI/OD Blood Pressure : / mmHG Vent. Rate : 082 BPM Atrial Rate : 082 BPM P-R Int : 154 ms QRS Dur : 086 ms QT Int : 376 ms P-R-T Axes : 025 025 021 degrees QTc Int : 439 ms Normal sinus rhythm Nonspecific T wave abnormality Abnormal ECG When compared with ECG of 12-DEC-2022 23:31, No significant change was found Referred By: Priscila Lynn Electronically Signed By:Deangelo Gutierres
--- NOTE | 2022-12-13 07:37 | PC.NURSE ---
Care team at bedside will await outcome will CTM
[2022-12-13 08:17] VITALS: PULSE 80; RESP 21; O2SAT 91
[2022-12-13] MEDS: Albuterol/Iprat 2.5/0.5MG 3 ML AMPUL.NEB INHALE (08:17)
[2022-12-13 08:20] LABS: Amphetamine Screen Urine Not Detected (Not Detect); Barbiturates, Urine Not Detected (Not Detect); Benzodiazepines Screen Urine Not Detected (Not Detect); Cannabinoid Screen Urine Not Detected (Not Detect); Cocaine Screen Urine Not Detected (Not Detect); Fentanyl, urine Not Detected (Not Detect); Opiate Screen Urine Not Detected (Not Detect); Phencyclidine Screen Urine Not Detected (Not Detect)
--- NOTE | 2022-12-13 09:16 | PC.NURSE ---
Patient remains watch for safety no distress or agitation noted will CTM
[2022-12-13 10:02] VITALS: BP 116/74; PULSE 81; RESP 20; TEMP 37.2; O2SAT 92
== END 2022-12-13 10:19 | disposition home or self-care (01) ==
PROVIDERS: Emergency Provider Emergency Medicine
DX: T42.6X1A Poisoning by other antiepileptic and sedative-hypnotic drugs, accidental (unintentional), initial encounter (principal); Y92.9 Unspecified place or not applicable; Z79.899 Other long term (current) drug therapy; F17.210 Nicotine dependence, cigarettes, uncomplicated; Z71.6 Tobacco abuse counseling
CPT/HCPCS: 36415; 80053; 80143; 80179; 80307; 82077; 83690; 84484; 85025; 93005; 94640; 99285; S9485

== ENCOUNTER 2022-12-15 12:42 | Emergency (ER) | payer MEDICAID, SELFPAY ==
[2022-12-15 12:47] VITALS: BP 162/102; PULSE 91
[2022-12-15 12:48] VITALS: BP 130/82; PULSE 91; RESP 18; TEMP 36.6; O2SAT 98; BMI 39.9
--- NOTE | 2022-12-15 12:48 | ED_ITS ---
HPI - Abdominal Pain General Chief Complaint: Abdominal Pain Stated Complaint: ABD PAIN Related Data Home Medications Medication Instructions Recorded Confirmed capsaicin 0.025 % topical cream 1 appl topical QID PRN pain 07/02/22 12/16/22 benztropine 1 mg tablet 1 tab PO BID 07/23/22 12/16/22 cholecalciferol (vitamin D3) 25 1 tab PO DAILY 07/23/22 12/16/22 mcg (1,000 unit) tablet omeprazole 20 mg capsule,delayed 1 cap PO DAILY@0630 07/23/22 12/16/22 release oxcarbazepine 150 mg tablet 1 tab PO BID 07/23/22 12/16/22 sertraline 50 mg tablet 50 mg PO DAILY 07/23/22 12/16/22 valacyclovir 1 gram tablet 1 tab PO BID 07/23/22 12/16/22 lithium carbonate 600 mg capsule 1 cap PO BID 07/24/22 12/16/22 cyanocobalamin (vitamin B-12) 100 1 tab PO DAILY 08/06/22 12/16/22 mcg tablet nitroglycerin 0.4 mg sublingual 0.4 mg sublingual Q5M PRN Chest 08/06/22 12/16/22 tablet Pain olanzapine 10 mg tablet 1 tab PO BEDTIME 08/06/22 12/16/22 bupropion HCl 150 mg 24 hr tablet, 150 mg PO QAM 09/23/22 12/16/22 extended release clonidine HCl 0.1 mg tablet 0.2 mg PO BEDTIME 09/23/22 12/16/22 ropinirole 0.5 mg tablet 0.5 mg PO BEDTIME 09/23/22 12/16/22 tiotropium bromide 18 mcg capsule 1 cap inhalation DAILY 09/23/22 12/16/22 with inhalation device (Spiriva with HandiHaler) gabapentin 300 mg capsule 600 mg PO TID 11/29/22 12/16/22 Previous Rx's Medication Instructions Recorded albuterol sulfate 90 mcg/actuation 2 puff inhalation Q4-6H PRN 04/20/22 aerosol inhaler shortness of breath or wheezing 30 days #1 inhaler ferrous sulfate 324 mg (65 mg 324 mg PO DAILY 30 days #30 tabs 05/18/22 iron) tablet,delayed release dextromethorphan-guaifenesin 10 10 ml PO Q6H PRN Cough #237 mL 11/30/22 mg-100 mg/5 mL oral syrup Allergies Allergy/AdvReac Type Severity Reaction Status Date / Time aspirin [Aspirin] Allergy Severe HIVES,THROAT Verified 12/12/22 20:19 SWELLS bee pollen [BEE STINGS] Allergy Severe ANAPHYLAXIS Verified 12/12/22 20:19 diphenhydramine Allergy Severe hives, Verified 12/12/22 20:19 [From BENADRYL ALLERGY] throat swells Penicillins [PCN] Allergy Severe HIVES Verified 12/12/22 20:19 THROAT SWELLS Sulfa (Sulfonamide Allergy Intermediate HIVES Verified 12/12/22 20:19 Antibiotics) [SULFA (SULFONAMIDE ANTIBIOTICS)] tramadol [TRAMADOL] Allergy Intermediate ITCHING Verified 12/12/22 20:19 latex [LATEX] Allergy Unknown UNKNOWN Verified 12/12/22 20:19 penicillin G Allergy Unknown Unknown Verified 12/12/22 20:19 levofloxacin [From Levaquin] Allergy Hives Verified 12/12/22 20:19 hydroxyzine AdvReac Severe restless Verified 12/12/22 20:19 legs seafood AdvReac Stomach Verified 12/12/22 20:19 Upset PMFSH Past Medical History Medical History Asthma exacerbation in COPD Asthma-COPD overlap syndrome Bipolar disorder Bipolar I disorder Borderline personality disorder COPD (chronic obstructive pulmonary disease) Depression Drug abuse Herpes Intermittent explosive disorder Mass of parotid gland FABIOLA (obstructive sleep apnea) Post traumatic stress disorder (PTSD) Pseudoseizures Tobacco use Surgical History History of ankle surgery History of appendectomy History of back surgery Hx of cholecystectomy Family History Family History Mother COPD (chronic obstructive pulmonary disease) Social History Social History Household Members: None Household Members Other:: Intermediate in [place] Housing: Apartment Housing Other:: Sleeps on the couch at [facility] house Do you presently have visiting nurse or other home services: Yes (twice a day) Unable to assess alcohol history related to: Unknown Alcohol intake: unknown Patient Tobacco Use Status: Current everyday Tobacco user Tobacco use type: Cigarette Cigarette Packs Per Day: 3 Cigarettes Per Day: 10 Years Smoked: 34 e-Cigarette/Vaping Use: Former Use Second Hand Smoke Exposure: No Substance Use Type: Crack/Cocaine Advance Directives: Yes Advance Directives on File: Yes Advance Directives Date on File: 06/17/22 Healthcare Proxy: No Guardian: No service: No Current occupational status: unemployed and disabled Sexual orientation: Straight/Heterosexual Physical Exam ED Vital Signs: BMI result Body Mass Index 39.9 Course Course Course Narrative: This is an RME: Additional HPI, ROS, PE not included below will be deferred to primary provider. Patient is a 52-year-old female who presents emergency department via EMS for evaluation of abdominal pain. Reports onset of pain 1 hour ago associated nausea but no vomiting. Pain is localized to the upper abdomen as well as the umbilicus region. Also endorsing associated diarrhea x6 in the past hour, large volume. Denies fevers, chills, genitourinary symptom. PE: Abdominal examination without any point tenderness, no rigidity. No guarding Plan: Urinalysis, viral testing, labs Medical Decision Making Lab Data 12/15/22 13:03 12/15/22 13:03 Labs: Lab Results 12/15/22 12/15/22 12/15/22 Range/Units 12:56 13:03 13:03 WBC 8.5 (4.8-10.8) X10*3/uL RBC 4.30 (4.20-5.50) X10*6/uL Hgb 13.0 (12.0-16.0) g/dl Hct 40.6 (37.0-47.0) % MCV 94.4 (80.0-98.0) fL MCH 30.2 (27.0-33.0) pg MCHC 32.0 (31.0-35.0) g/dl RDW 14.3 (11.0-16.0) % Plt Count 281 (160-400) X10*3/uL MPV 9.4 (9.4-12.3) fL Immature Gran % (Auto) 0.4 (0.0-0.4) % Neut % (Auto) 65.5 (45-73) % Lymph % (Auto) 25.9 (20-40) % [place] % (Auto) 5.7 (2-11) % Eos % (Auto) 1.3 (0-4) % Baso % (Auto) 1.2 (0-2) % Lymph # (Auto) 2.2 (1.2-4.9) X10*3/uL [place] # (Auto) 0.5 (0.1-1.2) X10*3/uL Eos # (Auto) 0.1 (0.0-0.4) X10*3/uL Baso # (Auto) 0.1 (0.0-0.2) X10*3/uL Abs Immat Gran (auto) 0.03 (0.00-0.03) X10*3/uL Absolute Neuts (auto) 5.6 (2.0-8.3) x10*3/uL Absolute Nucleated RBC 0.000 (0.0-0.012) X10*3/uL Nucleated RBC % (auto) 0.0 (0.0-0.2) /100WBC Sodium 142 (135-145) mmol/L Potassium 4.4 (3.3-5.1) mmol/L Chloride 103 (96-108) mmol/L Carbon Dioxide 30 H (22-29) mmol/L Anion Gap 13 (12-20) BUN 18 H (9-16) mg/dL Creatinine 0.80 (0.5-1.4) mg/dL Estim Creat Clear Calc 102.1 Estimated GFR > 60 Random Glucose 96 (60-115) mg/dL Calcium 10.1 D (8.4-10.2) mg/dL Total Bilirubin 0.3 (0.0-1.0) mg/dL AST 20 (5-31) U/L ALT 23 (0-31) U/L Alkaline Phosphatase 88 (39-117) U/L Total Protein 6.8 (6.5-8.0) g/dL Albumin 4.4 (3.5-5.0) g/dL Lipase 32 (8-78) U/L Urine Color Yellow Urine Appearance Clear Urine pH 7.5 (5.0-9.0) Ur Specific [place] 1.010 (1.005-1.025) Urine Protein Negative (Neg-Trace) mg/dL Urine Glucose (UA) Negative (Negative) mg/dL Urine Ketones Negative (Negative) mg/dL Urine Blood Negative (Negative) Urine Nitrite Negative (Negative) Ur Leukocyte Esterase Large (3+) H (Negative) Urine RBC 0-2 (0-2) /HPF Urine WBC 11-20 H (0-5) /HPF Ur Squamous Epith Cells 3-5 (0-2) /HPF Urine Bacteria None Seen (None Seen) Hyaline Casts 0-2 (0-2) /LPF COVID-19 (ENDY) COVID-19 Clin Com Influenza Type A (KELY) Influenza Type B (KELY) Influenza A & B Note 12/15/22 12/15/22 Range/Units 13:03 13:03 WBC (4.8-10.8) X10*3/uL RBC (4.20-5.50) X10*6/uL Hgb (12.0-16.0) g/dl Hct (37.0-47.0) % MCV (80.0-98.0) fL MCH (27.0-33.0) pg MCHC (31.0-35.0) g/dl RDW (11.0-16.0) % Plt Count (160-400) X10*3/uL MPV (9.4-12.3) fL Immature Gran % (Auto) (0.0-0.4) % Neut % (Auto) (45-73) % Lymph % (Auto) (20-40) % [place] % (Auto) (2-11) % Eos % (Auto) (0-4) % Baso % (Auto) (0-2) % Lymph # (Auto) (1.2-4.9) X10*3/uL [place] # (Auto) (0.1-1.2) X10*3/uL Eos # (Auto) (0.0-0.4) X10*3/uL Baso # (Auto) (0.0-0.2) X10*3/uL Abs Immat Gran (auto) (0.00-0.03) X10*3/uL Absolute Neuts (auto) (2.0-8.3) x10*3/uL Absolute Nucleated RBC (0.0-0.012) X10*3/uL Nucleated RBC % (auto) (0.0-0.2) /100WBC Sodium (135-145) mmol/L Potassium (3.3-5.1) mmol/L Chloride (96-108) mmol/L Carbon Dioxide (22-29) mmol/L Anion Gap (12-20) BUN (9-16) mg/dL Creatinine (0.5-1.4) mg/dL Estim Creat Clear Calc Estimated GFR Random Glucose (60-115) mg/dL Calcium (8.4-10.2) mg/dL Total Bilirubin (0.0-1.0) mg/dL AST (5-31) U/L ALT (0-31) U/L Alkaline Phosphatase (39-117) U/L Total Protein (6.5-8.0) g/dL Albumin (3.5-5.0) g/dL Lipase (8-78) U/L Urine Color Urine Appearance Urine pH (5.0-9.0) Ur Specific [place] (1.005-1.025) Urine Protein (Neg-Trace) mg/dL Urine Glucose (UA) (Negative) mg/dL Urine Ketones (Negative) mg/dL Urine Blood (Negative) Urine Nitrite (Negative) Ur Leukocyte Esterase (Negative) Urine RBC (0-2) /HPF Urine WBC (0-5) /HPF Ur Squamous Epith Cells (0-2) /HPF Urine Bacteria (None Seen) Hyaline Casts (0-2) /LPF COVID-19 (ENDY) Cancelled COVID-19 Clin Com Cancelled Influenza Type A (KELY) Cancelled Influenza Type B (KEYL) Cancelled Influenza A & B Note Cancelled Discharge Plan Discharge Clinical Impression: Abdominal pain Patient Disposition: Elopement Prescriptions: No Action albuterol sulfate 90 mcg/actuation HFA aerosol inhaler 2 puff inhalation Q4-6H PRN (Reason: shortness of breath or wheezing) 30 Days Qty: 1 0RF ferrous sulfate 324 mg (65 mg iron) tablet,delayed release (DR/EC) 324 mg PO DAILY 30 Days Qty: 30 0RF capsaicin 0.025 % cream 1 appl topical QID PRN (Reason: pain) oxcarbazepine 150 mg tablet 1 tab PO BID valacyclovir 1 gram tablet 1 tab PO BID benztropine 1 mg tablet 1 tab PO BID omeprazole 20 mg capsule,delayed release(DR/EC) 1 cap PO DAILY@0630 sertraline 50 mg tablet 50 mg PO DAILY cholecalciferol (vitamin D3) 25 mcg (1,000 unit) tablet 1 tab PO DAILY lithium carbonate 600 mg capsule 1 cap PO BID nitroglycerin 0.4 mg tablet, sublingual 0.4 mg sublingual Q5M PRN (Reason: Chest Pain) cyanocobalamin (vitamin B-12) 100 mcg tablet 1 tab PO DAILY olanzapine 10 mg tablet 1 tab PO BEDTIME Spiriva with HandiHaler 18 mcg capsule, w/inhalation device 1 cap inhalation DAILY ropinirole 0.5 mg Tablet 0.5 mg PO BEDTIME Rx Instructions: administer 1-3 hours before bedtime clonidine HCl 0.1 mg Tablet 0.2 mg PO BEDTIME bupropion HCl 150 mg Tablet Extended Release 24 Hr 150 mg PO QAM gabapentin 300 mg Capsule 600 mg PO TID dextromethorphan-guaifenesin 10-100 mg/5 mL Syrup 10 ml PO Q6H PRN (Reason: Cough) Qty: 237 0RF Interventions: YANI Worksheet Last Done: 12/15/22 17:06 Discharge Date/Time: 12/15/22 17:07
[2022-12-15 13:11] LABS: MANUAL DIFF FLAG NO
[2022-12-15 13:12] LABS: Basophils Absolute Auto 0.1 X10*3/uL (0.0-0.2); Basophils Percent Auto 1.2 % (0-2); Eosinophils Absolute Auto 0.1 X10*3/uL (0.0-0.4); Eosinophils Percent Auto 1.3 % (0-4); Hematocrit 40.6 % (37.0-47.0); Imm Gran Abs Auto 0.03 X10*3/uL (0.00-0.03); Imm Gran Pct Auto 0.4 % (0.0-0.4); Lymphocytes Absolute Auto 2.2 X10*3/uL (1.2-4.9); Lymphocytes Percent Auto 25.9 % (20-40); Mean Corpuscular Hemoglobin 30.2 pg (27.0-33.0); Mean Corpuscular Volume 94.4 fL (80.0-98.0); Mean Platelet Volume 9.4 fL (9.4-12.3); Monocytes Absolute Auto 0.5 X10*3/uL (0.1-1.2); Monocytes Percent Auto 5.7 % (2-11); Neutrophils Absolute Auto 5.6 x10*3/uL (2.0-8.3); Neutrophils Percent Auto 65.5 % (45-73); Platelet Count 281 X10*3/uL (160-400); Red Cell Distribution Width 14.3 % (11.0-16.0); White Blood Count 8.5 X10*3/uL (4.8-10.8)
[2022-12-15 13:15] LABS: Appearance Urine Clear; Color Urine Yellow; Glucose Urine UA Negative (Negative); Leukocyte Esterase Urine Large (3+) (Negative); Nitrite Urine Negative (Negative); PH 7.5 (5.0-9.0); UMIC TRIGGER UACC YES; Urine Blood Negative (Negative); Urine Ketones Negative (Negative); Urine Protein Negative (Neg-Trace)
[2022-12-15 13:17] LABS: Bacteria Urine None Seen (None Seen); Hyaline Casts Urine 0-2 /LPF (0-2); RBC Urine 0-2 /HPF (0-2); UACC Culture Trigger YES
[2022-12-15 13:28] LABS: Alanine Aminotransferase 23 U/L (0-31); Albumin Level 4.4 g/dL (3.5-5.0); Alkaline Phosphatase 88 U/L (39-117); Anion Gap 13 (12-20); Aspartate Amino Transferase 20 U/L (5-31); Bilirubin Total 0.3 mg/dL (0.0-1.0); Blood Urea Nitrogen 18 mg/dL (9-16); Calcium 10.1 mg/dL (8.4-10.2); Carbon Dioxide 30 mmol/L (22-29); Chloride 103 mmol/L (96-108); Creatinine Clr Calc Pharmacy 102.1; Estimated Glomerular Filt Rate > 60; Glucose Random 96 mg/dL (60-115); Lipase 32 U/L (8-78); Potassium 4.4 mmol/L (3.3-5.1); Sodium 142 mmol/L (135-145); Total Protein 6.8 g/dL (6.5-8.0)
== END 2022-12-15 17:07 | disposition left against medical advice (07) ==
PROVIDERS: Nurse Practitioner Family; Emergency Provider Emergency Medicine
DX: R10.9 Unspecified abdominal pain (principal); Z20.822 Contact with and (suspected) exposure to COVID-19; F17.210 Nicotine dependence, cigarettes, uncomplicated; F14.10 Cocaine abuse, uncomplicated; Z79.899 Other long term (current) drug therapy
CPT/HCPCS: 80053; 81001; 83690; 85025; 87086; 99282; 99283

== ENCOUNTER 2022-12-16 00:34 | Emergency (ER) | payer OTHER, MEDICAID, SELFPAY ==
[2022-12-16 00:35] VITALS: BP 140/82; PULSE 112; RESP 18; TEMP 37.3; O2SAT 90; BMI 41.5
[2022-12-16 00:58] LABS: Appearance Urine Cloudy; Color Urine Yellow; Glucose Urine UA Negative (Negative); Leukocyte Esterase Urine Large (3+) (Negative); Nitrite Urine Negative (Negative); PH 6.5 (5.0-9.0); UMIC TRIGGER UA YES; Urine Blood Negative (Negative); Urine Ketones Negative (Negative); Urine Protein 30 (1+) mg/dL (Neg-Trace)
[2022-12-16 01:03] LABS: Bacteria Urine 2+ (None Seen); WBC Urine >50 /HPF (0-5)
[2022-12-16 01:07] LABS: COVID-19 Test Negative (Negative); IDNOW Serial# BCCEAD1C
[2022-12-16 01:09] LABS: Amphetamine Screen Urine Not Detected (Not Detect); Barbiturates, Urine Not Detected (Not Detect); Benzodiazepines Screen Urine Not Detected (Not Detect); Cannabinoid Screen Urine Not Detected (Not Detect); Cocaine Screen Urine POSITIVE (Not Detect); Fentanyl, urine Not Detected (Not Detect); Opiate Screen Urine Not Detected (Not Detect); Phencyclidine Screen Urine Not Detected (Not Detect)
[2022-12-16 01:22] LABS: MANUAL DIFF FLAG NO
[2022-12-16 01:23] LABS: Basophils Absolute Auto 0.1 X10*3/uL (0.0-0.2); Basophils Percent Auto 0.7 % (0-2); Eosinophils Absolute Auto 0.1 X10*3/uL (0.0-0.4); Eosinophils Percent Auto 0.6 % (0-4); Hematocrit 40.5 % (37.0-47.0); Hemoglobin 13.2 g/dl (12.0-16.0); Imm Gran Abs Auto 0.04 X10*3/uL (0.00-0.03); Imm Gran Pct Auto 0.3 % (0.0-0.4); Lymphocytes Percent Auto 16.7 % (20-40); Mean Corpuscular HGB Conc 32.6 g/dl (31.0-35.0); Mean Corpuscular Hemoglobin 30.8 pg (27.0-33.0); Mean Corpuscular Volume 94.4 fL (80.0-98.0); Mean Platelet Volume 9.7 fL (9.4-12.3); Monocytes Absolute Auto 0.7 X10*3/uL (0.1-1.2); Monocytes Percent Auto 5.6 % (2-11); Neutrophils Absolute Auto 9.2 x10*3/uL (2.0-8.3); Neutrophils Percent Auto 76.1 % (45-73); Platelet Count 292 X10*3/uL (160-400); Red Blood Count 4.29 X10*6/uL (4.20-5.50); Red Cell Distribution Width 14.6 % (11.0-16.0); White Blood Count 12.1 X10*3/uL (4.8-10.8)
[2022-12-16 01:36] LABS: Lithium 0.65 mmol/L (0.60-1.20)
--- NOTE | 2022-12-16 01:44 | ED.PSYCH ---
HPI - Psych General Chief Complaint: Psychiatric Symptoms Stated Complaint: SI WITH A PLAN Source: patient Mode of arrival: EMS Limitations: no limitations History of Present Illness HPI Narrative: Patient comes to the emergency room complaining of suicidal ideation. Patient states that she used a lot of cocaine prior to arrival. Patient explains that she feels very overwhelmed with her radiation treatment for the neck cancer. Later today at 15:00, patient has an appointment for radiation therapy. Patient states that last radiation station was a small treatment. But today, it is going to be more extensive and she is worried about it. Patient denies homicidal ideation Related Data Home Medications Medication Instructions Recorded Confirmed capsaicin 0.025 % topical cream 1 appl topical QID PRN pain 07/02/22 12/16/22 benztropine 1 mg tablet 1 tab PO BID 07/23/22 12/16/22 cholecalciferol (vitamin D3) 25 1 tab PO DAILY 07/23/22 12/16/22 mcg (1,000 unit) tablet omeprazole 20 mg capsule,delayed 1 cap PO DAILY@0630 07/23/22 12/16/22 release oxcarbazepine 150 mg tablet 1 tab PO BID 07/23/22 12/16/22 sertraline 50 mg tablet 50 mg PO DAILY 07/23/22 12/16/22 valacyclovir 1 gram tablet 1 tab PO BID 07/23/22 12/16/22 lithium carbonate 600 mg capsule 1 cap PO BID 07/24/22 12/16/22 cyanocobalamin (vitamin B-12) 100 1 tab PO DAILY 08/06/22 12/16/22 mcg tablet nitroglycerin 0.4 mg sublingual 0.4 mg sublingual Q5M PRN Chest 08/06/22 12/16/22 tablet Pain olanzapine 10 mg tablet 1 tab PO BEDTIME 08/06/22 12/16/22 bupropion HCl 150 mg 24 hr tablet, 150 mg PO QAM 09/23/22 12/16/22 extended release clonidine HCl 0.1 mg tablet 0.2 mg PO BEDTIME 09/23/22 12/16/22 ropinirole 0.5 mg tablet 0.5 mg PO BEDTIME 09/23/22 12/16/22 tiotropium bromide 18 mcg capsule 1 cap inhalation DAILY 09/23/22 12/16/22 with inhalation device (Spiriva with HandiHaler) gabapentin 300 mg capsule 600 mg PO TID 11/29/22 12/16/22 Previous Rx's Medication Instructions Recorded albuterol sulfate 90 mcg/actuation 2 puff inhalation Q4-6H PRN 04/20/22 aerosol inhaler shortness of breath or wheezing 30 days #1 inhaler ferrous sulfate 324 mg (65 mg 324 mg PO DAILY 30 days #30 tabs 05/18/22 iron) tablet,delayed release dextromethorphan-guaifenesin 10 10 ml PO Q6H PRN Cough #237 mL 11/30/22 mg-100 mg/5 mL oral syrup Allergies Allergy/AdvReac Type Severity Reaction Status Date / Time aspirin [Aspirin] Allergy Severe HIVES,THROAT Verified 12/12/22 20:19 SWELLS bee pollen [BEE STINGS] Allergy Severe ANAPHYLAXIS Verified 12/12/22 20:19 diphenhydramine Allergy Severe hives, Verified 12/12/22 20:19 [From BENADRYL ALLERGY] throat swells Penicillins [PCN] Allergy Severe HIVES Verified 12/12/22 20:19 THROAT SWELLS Sulfa (Sulfonamide Allergy Intermediate HIVES Verified 12/12/22 20:19 Antibiotics) [SULFA (SULFONAMIDE ANTIBIOTICS)] tramadol [TRAMADOL] Allergy Intermediate ITCHING Verified 12/12/22 20:19 latex [LATEX] Allergy Unknown UNKNOWN Verified 12/12/22 20:19 penicillin G Allergy Unknown Unknown Verified 12/12/22 20:19 levofloxacin [From Levaquin] Allergy Hives Verified 12/12/22 20:19 hydroxyzine AdvReac Severe restless Verified 12/12/22 20:19 legs seafood AdvReac Stomach Verified 12/12/22 20:19 Upset Review of Systems Review of Systems: Constitutional : No Weight loss, No Fever, No Chills, No Night Sweats, No Fatigue, No Malaise ENT/Mouth : No Hearing loss, No Ear Pain, No Nasal Congestion, No Sinus Pain, No Hoarseness, No sore throat, No Rhinorrhea, No Swallowing Difficulty Eyes: No Eye Pain, No Swelling, No Redness, No Foreign Body, No Discharge, No Vision Changes Cardiovascular : No Chest Pain, No SOB, No Dyspnea on Exertion, No Orthopnea, No Edema, No Palpitations Respiratory : No Cough, No Sputum, No Wheezing, No Smoke Exposure, No Dyspnea Gastrointestinal : No Nausea, No Vomiting, No Diarrhea, No Constipation, No abdominal Pain, No Hematochezia, No Melena Genitourinary : no irregular bleeding, No Dysuria, No Urinary Frequency, No Hematuria, No Urinary Incontinence, No Urgency, No Flank Pain, No Urinary Flow Changes, No Hesitancy Musculoskeletal : No joint pain, No Myalgias, No Joint Swelling Skin : No Skin Lesions, No rash Neuro : No Weakness, No Numbness, No Paresthesias, No Loss of Consciousness, No Dizziness, No Headache Psych : Complaining of anxiety, suicidal ideation, homicidal ideation, mid to using cocaine Heme/Lymph: No Bruising, No Bleeding,No Lymphadenopathy Endocrine : No Polyuria, No Polydipsia, No Temperature Intolerance [facility] Past Medical History Medical History Asthma exacerbation in COPD Asthma-COPD overlap syndrome Bipolar disorder Bipolar I disorder Borderline personality disorder COPD (chronic obstructive pulmonary disease) Depression Drug abuse Herpes Intermittent explosive disorder Mass of parotid gland FABIOLA (obstructive sleep apnea) Post traumatic stress disorder (PTSD) Pseudoseizures Tobacco use Surgical History History of ankle surgery History of appendectomy History of back surgery Hx of cholecystectomy Family History Family History Mother COPD (chronic obstructive pulmonary disease) Social History Social History Household Members: None Household Members Other:: Longterm in [place] Housing: Apartment Housing Other:: Sleeps on the couch at [facility] house Do you presently have visiting nurse or other home services: Yes (twice a day) Unable to assess alcohol history related to: Unknown Alcohol intake: unknown Patient Tobacco Use Status: Current everyday Tobacco user Tobacco use type: Cigarette Cigarette Packs Per Day: 3 Cigarettes Per Day: 10 Years Smoked: 34 e-Cigarette/Vaping Use: Former Use Second Hand Smoke Exposure: No Substance Use Type: Crack/Cocaine Advance Directives: Yes Advance Directives on File: Yes Advance Directives Date on File: 06/17/22 service: No Current occupational status: unemployed and disabled Sexual orientation: Straight/Heterosexual Physical Exam Vital Signs: Vital Signs: Last Vital Signs Temp 99.1 F 02/16/23 00:35 Pulse 112 H 12/16/22 00:35 Resp 18 12/16/22 00:35 BP 140/82 H 12/16/22 00:35 Pulse Ox 90 L 12/16/22 00:35 O2 Del Method 12/16/22 00:35 BMI result Body Mass Index 41.5 Const: Other: Appearance: Alert. Oriented X3. No acute distress. Eyes: Pupils equal, round and reactive to light. ENT: Pharynx normal. Neck: Normal inspection. Neck supple. No lymph nodes noted. No crepitus CVS: Normal heart rate and rhythm. Pulses normal. Normal S1 and S2 Respiratory: No respiratory distress. Breath sounds normal. No Wheezing. No rales Abdomen: Soft and nontender. No rigidity. No distention. Skin: Skin warm and dry. Normal skin color. Normal skin turgor. Extremities: No lower extremity edema. No Lacerations. No Rash Neuro: Oriented X 3. No motor deficit. No sensory deficit. Moving all extremities. No slurred speech. CN 2 through 12 grossly intact Psych: calm, cooperative, normal affect Course Course Course Narrative: -patient's white blood cell count 12.1, likely leukocytosis. Patient's urinalysis is positive. However, she always has a positive UTI. Blood cultures have been negative, urine cultures are positive for mixed blossom. Patient has no UTI symptoms. At this time, antibiotics are not indicated Medical Decision Making Medical Decision Making MDM Narrative: -care team consult pending -physician observation started at 01:45 Lab Data 12/16/22 01:15 12/16/22 01:15 Labs: Lab Results 12/16/22 12/16/22 12/16/22 Range/Units 00:47 00:47 00:47 WBC (4.8-10.8) X10*3/uL RBC (4.20-5.50) X10*6/uL Hgb (12.0-16.0) g/dl Hct (37.0-47.0) % MCV (80.0-98.0) fL MCH (27.0-33.0) pg MCHC (31.0-35.0) g/dl RDW (11.0-16.0) % Plt Count (160-400) X10*3/uL MPV (9.4-12.3) fL Immature Gran % (Auto) (0.0-0.4) % Neut % (Auto) (45-73) % Lymph % (Auto) (20-40) % [place] % (Auto) (2-11) % Eos % (Auto) (0-4) % Baso % (Auto) (0-2) % Lymph # (Auto) (1.2-4.9) X10*3/uL [place] # (Auto) (0.1-1.2) X10*3/uL Eos # (Auto) (0.0-0.4) X10*3/uL Baso # (Auto) (0.0-0.2) X10*3/uL Abs Immat Gran (auto) (0.00-0.03) X10*3/uL Absolute Neuts (auto) (2.0-8.3) x10*3/uL Absolute Nucleated RBC (0.0-0.012) X10*3/uL Nucleated RBC % (auto) (0.0-0.2) /100WBC Urine Color Yellow Urine Appearance Cloudy Urine pH 6.5 (5.0-9.0) Ur Specific [place] 1.020 (1.005-1.025) Urine Protein 30 (1+) H (Neg-Trace) mg/dL Urine Glucose (UA) Negative (Negative) mg/dL Urine Ketones Negative (Negative) mg/dL Urine Blood Negative (Negative) Urine Nitrite Negative (Negative) Ur Leukocyte Esterase Large (3+) H (Negative) Urine RBC 3-5 H (0-2) /HPF Urine WBC >50 H (0-5) /HPF Ur Squamous Epith Cells 11-20 (0-2) /HPF Urine Bacteria 2+ (None Seen) Hyaline Casts 3-5 (0-2) /LPF Urine Opiates Screen Not Detected (Not Detect) Urine Fentanyl Screen Not Detected (Not Detect) Ur Barbiturates Screen Not Detected (Not Detect) Ur Phencyclidine Scrn Not Detected (Not Detect) Ur Amphetamines Screen Not Detected (Not Detect) U Benzodiazepines Scrn Not Detected (Not Detect) L[place] (0.60-1.20) mmol/L Urine Cocaine Screen POSITIVE H (Not Detect) U Marijuana (THC) Screen Not Detected (Not Detect) COVID-19 (ENDY) Negative (Negative) COVID-19 Clin Com See Note 12/16/22 12/16/22 Range/Units 01:15 01:15 WBC 12.1 H (4.8-10.8) X10*3/uL RBC 4.29 (4.20-5.50) X10*6/uL Hgb 13.2 (12.0-16.0) g/dl Hct 40.5 (37.0-47.0) % MCV 94.4 (80.0-98.0) fL MCH 30.8 (27.0-33.0) pg MCHC 32.6 (31.0-35.0) g/dl RDW 14.6 (11.0-16.0) % Plt Count 292 (160-400) X10*3/uL MPV 9.7 (9.4-12.3) fL Immature Gran % (Auto) 0.3 (0.0-0.4) % Neut % (Auto) 76.1 H (45-73) % Lymph % (Auto) 16.7 L (20-40) % [place] % (Auto) 5.6 (2-11) % Eos % (Auto) 0.6 (0-4) % Baso % (Auto) 0.7 (0-2) % Lymph # (Auto) 2.0 (1.2-4.9) X10*3/uL [place] # (Auto) 0.7 (0.1-1.2) X10*3/uL Eos # (Auto) 0.1 (0.0-0.4) X10*3/uL Baso # (Auto) 0.1 (0.0-0.2) X10*3/uL Abs Immat Gran (auto) 0.04 H (0.00-0.03) X10*3/uL Absolute Neuts (auto) 9.2 H (2.0-8.3) x10*3/uL Absolute Nucleated RBC 0.000 (0.0-0.012) X10*3/uL Nucleated RBC % (auto) 0.0 (0.0-0.2) /100WBC Urine Color Urine Appearance Urine pH (5.0-9.0) Ur Specific [place] (1.005-1.025) Urine Protein (Neg-Trace) mg/dL Urine Glucose (UA) (Negative) mg/dL Urine Ketones (Negative) mg/dL Urine Blood (Negative) Urine Nitrite (Negative) Ur Leukocyte Esterase (Negative) Urine RBC (0-2) /HPF Urine WBC (0-5) /HPF Ur Squamous Epith Cells (0-2) /HPF Urine Bacteria (None Seen) Hyaline Casts (0-2) /LPF Urine Opiates Screen (Not Detect) Urine Fentanyl Screen (Not Detect) Ur Barbiturates Screen (Not Detect) Ur Phencyclidine Scrn (Not Detect) Ur Amphetamines Screen (Not Detect) U Benzodiazepines Scrn (Not Detect) L[place] 0.65 (0.60-1.20) mmol/L Urine Cocaine Screen (Not Detect) U Marijuana (THC) Screen (Not Detect) COVID-19 (ENDY) (Negative) COVID-19 Clin Com Discharge Plan Discharge Clinical Impression: Suicidal ideation Patient Disposition: Still a Patient Prescriptions: No Action albuterol sulfate 90 mcg/actuation HFA aerosol inhaler 2 puff inhalation Q4-6H PRN (Reason: shortness of breath or wheezing) 30 Days Qty: 1 0RF ferrous sulfate 324 mg (65 mg iron) tablet,delayed release (DR/EC) 324 mg PO DAILY 30 Days Qty: 30 0RF capsaicin 0.025 % cream 1 appl topical QID PRN (Reason: pain) oxcarbazepine 150 mg tablet 1 tab PO BID valacyclovir 1 gram tablet 1 tab PO BID benztropine 1 mg tablet 1 tab PO BID omeprazole 20 mg capsule,delayed release(DR/EC) 1 cap PO DAILY@0630 sertraline 50 mg tablet 50 mg PO DAILY cholecalciferol (vitamin D3) 25 mcg (1,000 unit) tablet 1 tab PO DAILY lithium carbonate 600 mg capsule 1 cap PO BID nitroglycerin 0.4 mg tablet, sublingual 0.4 mg sublingual Q5M PRN (Reason: Chest Pain) cyanocobalamin (vitamin B-12) 100 mcg tablet 1 tab PO DAILY olanzapine 10 mg tablet 1 tab PO BEDTIME Spiriva with HandiHaler 18 mcg capsule, w/inhalation device 1 cap inhalation DAILY ropinirole 0.5 mg Tablet 0.5 mg PO BEDTIME Rx Instructions: administer 1-3 hours before bedtime clonidine HCl 0.1 mg Tablet 0.2 mg PO BEDTIME bupropion HCl 150 mg Tablet Extended Release 24 Hr 150 mg PO QAM gabapentin 300 mg Capsule 600 mg PO TID dextromethorphan-guaifenesin 10-100 mg/5 mL Syrup 10 ml PO Q6H PRN (Reason: Cough) Qty: 237 0RF
[2022-12-16 01:46] LABS: Acetaminophen LAB < 17 mcg/mL (<30); Alanine Aminotransferase 26 U/L (0-31); Albumin Level 4.5 g/dL (3.5-5.0); Alkaline Phosphatase 94 U/L (39-117); Anion Gap 14 (12-20); Aspartate Amino Transferase 24 U/L (5-31); Bilirubin Total 0.6 mg/dL (0.0-1.0); Blood Urea Nitrogen 21 mg/dL (9-16); Calcium 9.7 mg/dL (8.4-10.2); Carbon Dioxide 26 mmol/L (22-29); Chloride 102 mmol/L (96-108); Creatinine Clr Calc Pharmacy 90.8; Estimated Glomerular Filt Rate > 60; Glucose Random 109 mg/dL (60-115); Potassium 3.9 mmol/L (3.3-5.1); Salicylate < 5.0 mg/dL (15-30); Sodium 138 mmol/L (135-145); Total Protein 6.8 g/dL (6.5-8.0)
--- NOTE | 2022-12-16 05:21 | PC.NURSE ---
Patient slept through the night, no distress observed/reported, behavior at the time of arrival hyper-sexual but non concerning,, labs completed, care consult ordered/pending care team evaluation for suicidality, med rec completed/pending provider's approval, VSS, will continue to monitor.
== END 2022-12-16 08:53 | disposition home or self-care (01) ==
PROVIDERS: Emergency Provider Emergency Medicine
DX: F33.1 Major depressive disorder, recurrent, moderate (principal); R45.851 Suicidal ideations; F17.210 Nicotine dependence, cigarettes, uncomplicated; Z20.822 Contact with and (suspected) exposure to COVID-19; Z20.828 Contact with and (suspected) exposure to other viral communicable diseases; Z71.6 Tobacco abuse counseling; Z79.899 Other long term (current) drug therapy
CPT/HCPCS: 36415; 80053; 80143; 80178; 80179; 80307; 81001; 85025; 87635; 99284; S9485

== ENCOUNTER 2022-12-26 10:12 | Emergency (ER) | payer MEDICAID, SELFPAY ==
--- NOTE | ~2022-12-26 | CT_ITS ---
EXAMINATION: CT abdomen pelvis w IV con CLINICAL INFORMATION: Reason for Exam Diffuse abdominal pain. Diarrhea. COMPARISON: 2020 TECHNIQUE: Multidetector volumetric imaging was performed from the superior aspect of the liver through the pubic symphysis 85 mL of Omnipaque 350 injected Sagittal and coronal reformatted images were obtained on the technologist's workstation. This CT examination was performed using dose optimization techniques as appropriate, variously including the following: *Automated exposure control *Adjustment of mA and/or kV according to patient size (this includes techniques or standardized protocols for targeted exams where dose is matched to indication/reason for exam; i.e. extremities or head) *Use of iterative reconstruction technique DLP: 886 mGy-cm FINDINGS: LOWER THORAX: Included lung bases are clear. HEPATOBILIARY: No focal hepatic lesions. No biliary ductal dilatation. GALLBLADDER: Gallbladder has been removed. SPLEEN: Spleen is normal in size. PANCREAS: No focal mass or ductal dilatation. STOMACH AND GASTROINTESTINAL TRACT: Stomach is grossly unremarkable. There is no bowel distention or thickening. No CT evidence of appendicitis. ADRENALS: No adrenal nodules. KIDNEYS/URETERS: There are tiny 2 mm and 3 mm nonobstructing stones left kidney. No hydronephrosis. There are tiny small hypodense subcentimeter structures in the renal cortices that are too small to characterize unchanged from prior exam most commonly an evolving cysts. URINARY BLADDER: Urinary bladder decompressed unopacified. PELVIC VISCERA: Unremarkable PERITONEUM: No free air or fluid. LYMPH NODES: No lymphadenopathy. VASCULAR:Abdominal aorta normal in size, no aneurysm found. BONES, ABDOMINAL WALL AND SOFT TISSUES: Redemonstration of small hypogastric anterior abdominal wall hernia containing fat and mesentery roughly measures 2 cm unchanged. Degenerative disease of the lumbar spine especially L5-S1 CT/CT abdomen pelvis w IV con IMPRESSION: * No CT evidence of acute intra-abdominal process to explain patient's symptoms. * Redemonstration of small hypogastric anterior abdominal wall hernia containing fat and mesentery unchanged. * Tiny nonobstructing left kidney stones. * Other noncritical findings include cholecystectomy, tiny hypodense structures in the renal cortices that are too small to characterize most commonly evolving cysts, degenerative disease of the lumbar spine especially L5-S1.
--- NOTE | ~2022-12-26 | XR_ITS ---
EXAMINATION: XR chest 1V CLINICAL INFORMATION: Reason for Exam wheeze COMPARISON: Prior chest x-ray 12/05/2022 TECHNIQUE: XR chest 1V Tubes and lines: None Lungs and pleura: Linear opacity platelike atelectasis left lower lobe newly developed since prior exam. No pleural effusion, no dense consolidation. Mild diffuse interstitial and peribronchial cuffing unchanged. Heart and mediastinum: The mediastinum is within normal limits.. Bones/soft tissue: Skeletal structures included are normal for patient's age. XR/XR chest 1V IMPRESSION: * Newly developed linear opacity likely platelike atelectasis left lower lobe. * Mild diffuse interstitial and peribronchial cuffing might be small airway disease such as bronchiolitis or interstitial pneumonitis.
[2022-12-26 10:14] VITALS: BP 167/96; BP 168/92; PULSE 90; O2SAT 99; BMI 19.9
[2022-12-26 10:19] VITALS: BP 125/66; BP 130/80; PULSE 82; PULSE 89; RESP 18; TEMP 36.9; O2SAT 94; BMI 39.3
--- NOTE | 2022-12-26 10:32 | ECG_ITS ---
Test Reason : ABD PAIN Blood Pressure : / mmHG Vent. Rate : 072 BPM Atrial Rate : 072 BPM P-R Int : 138 ms QRS Dur : 082 ms QT Int : 418 ms P-R-T Axes : 047 047 028 degrees QTc Int : 457 ms Normal sinus rhythm Normal ECG When compared with ECG of 13-DEC-2022 07:51, No significant change was found Referred By: Arina Lowe Electronically Signed By:VAIBHAV KILLIAN MD
[2022-12-26] MEDS: 0.9 % Sodium Chloride 1,000 ML 999 ML IV (10:46)
[2022-12-26 10:49] LABS: MANUAL DIFF FLAG NO
[2022-12-26 10:50] LABS: Basophils Absolute Auto 0.1 X10*3/uL (0.0-0.2); Basophils Percent Auto 1.1 % (0-2); Eosinophils Absolute Auto 0.2 X10*3/uL (0.0-0.4); Eosinophils Percent Auto 3.2 % (0-4); Hematocrit 42.7 % (37.0-47.0); Hemoglobin 13.5 g/dl (12.0-16.0); Imm Gran Abs Auto 0.02 X10*3/uL (0.00-0.03); Imm Gran Pct Auto 0.3 % (0.0-0.4); Lymphocytes Absolute Auto 1.8 X10*3/uL (1.2-4.9); Lymphocytes Percent Auto 28.3 % (20-40); Mean Corpuscular HGB Conc 31.6 g/dl (31.0-35.0); Mean Corpuscular Hemoglobin 30.5 pg (27.0-33.0); Mean Corpuscular Volume 96.6 fL (80.0-98.0); Mean Platelet Volume 9.7 fL (9.4-12.3); Monocytes Absolute Auto 0.4 X10*3/uL (0.1-1.2); Monocytes Percent Auto 6.3 % (2-11); Neutrophils Percent Auto 60.8 % (45-73); Platelet Count 305 X10*3/uL (160-400); Red Blood Count 4.42 X10*6/uL (4.20-5.50); Red Cell Distribution Width 14.4 % (11.0-16.0); White Blood Count 6.5 X10*3/uL (4.8-10.8)
[2022-12-26] MEDS: Ketorolac Tromethamine 15 MG/ML VIAL IVPUSH (10:50)
--- NOTE | 2022-12-26 10:50 | ED_ITS ---
HPI - Abdominal Pain General Chief Complaint: Abdominal Pain Stated Complaint: left lower abd pain Time Seen by Provider: 12/26/22 10:28 Source: patient and EMS Mode of arrival: EMS History of Present Illness HPI narrative: 52-year-old female with a past medical history of asthma/COPD, bipolar, depression, substance abuse, intermittent explosive disorder, PTSD, FABIOLA, pseudoseizures, presenting to the ED via EMS complaining of periumbilical abdominal pain, diarrhea, dysuria x few days. Reports decreased p.o. intake. Also reports feeling wheezy. Denies cough, SOB/CP, fever, chills, nausea/vomiting, hematuria, flank pain, suspicious food intake MD elicited complaint: abdominal pain Onset (ago): day(s) Related Data Home Medications Medication Instructions Recorded Confirmed capsaicin 0.025 % topical cream 1 appl topical QID PRN pain 07/02/22 12/16/22 benztropine 1 mg tablet 1 tab PO BID 07/23/22 12/16/22 cholecalciferol (vitamin D3) 25 1 tab PO DAILY 07/23/22 12/16/22 mcg (1,000 unit) tablet omeprazole 20 mg capsule,delayed 1 cap PO DAILY@0630 07/23/22 12/16/22 release oxcarbazepine 150 mg tablet 1 tab PO BID 07/23/22 12/16/22 sertraline 50 mg tablet 50 mg PO DAILY 07/23/22 12/16/22 valacyclovir 1 gram tablet 1 tab PO BID 07/23/22 12/16/22 lithium carbonate 600 mg capsule 1 cap PO BID 07/24/22 12/16/22 cyanocobalamin (vitamin B-12) 100 1 tab PO DAILY 08/06/22 12/16/22 mcg tablet nitroglycerin 0.4 mg sublingual 0.4 mg sublingual Q5M PRN Chest 08/06/22 12/16/22 tablet Pain olanzapine 10 mg tablet 1 tab PO BEDTIME 08/06/22 12/16/22 bupropion HCl 150 mg 24 hr tablet, 150 mg PO QAM 09/23/22 12/16/22 extended release clonidine HCl 0.1 mg tablet 0.2 mg PO BEDTIME 09/23/22 12/16/22 ropinirole 0.5 mg tablet 0.5 mg PO BEDTIME 09/23/22 12/16/22 tiotropium bromide 18 mcg capsule 1 cap inhalation DAILY 09/23/22 12/16/22 with inhalation device (Spiriva with HandiHaler) gabapentin 300 mg capsule 600 mg PO TID 11/29/22 12/16/22 Previous Rx's Medication Instructions Recorded albuterol sulfate 90 mcg/actuation 2 puff inhalation Q4-6H PRN 04/20/22 aerosol inhaler shortness of breath or wheezing 30 days #1 inhaler ferrous sulfate 324 mg (65 mg 324 mg PO DAILY 30 days #30 tabs 05/18/22 iron) tablet,delayed release dextromethorphan-guaifenesin 10 10 ml PO Q6H PRN Cough #237 mL 11/30/22 mg-100 mg/5 mL oral syrup Allergies Allergy/AdvReac Type Severity Reaction Status Date / Time ampicillin Allergy Rash Verified 12/26/22 10:32 seafood AdvReac Stomach Verified 12/26/22 10:32 Upset Review of Systems Review of Systems Constitutional: No Fever, No Chills, No Fatigue, No Malaise ENT/Mouth: No Ear Pain, No Nasal Congestion, No sore throat, No Rhinorrhea, No Swallowing Difficulty Eyes: No Eye Pain, No Swelling, No Redness, No Vision Changes Cardiovascular: No Chest Pain, No SOB, No Dyspnea on Exertion, No Edema, No Palpitations Respiratory: No Cough, No Sputum, + Wheezing, No Smoke Exposure, No Dyspnea Gastrointestinal: + Nausea, No Vomiting, No Diarrhea, No Constipation, +Abdomina l pain Genitourinary: No irregular bleeding, No Dysuria, No Hematuria, No Flank Pain Musculoskeletal: No joint pain, No Myalgias, No Joint Swelling Skin: No Skin Lesions, No rash Neuro: No Weakness, No Loss of Consciousness, No Dizziness, No Headache Yes all other systems are reviewed and are negative Constitutional: Reports as per [facility] Past Medical History Attestation statement: The following information was validated with the patient. Medical History Asthma exacerbation in COPD Asthma-COPD overlap syndrome Bipolar disorder Bipolar I disorder Borderline personality disorder COPD (chronic obstructive pulmonary disease) Depression Drug abuse Herpes Intermittent explosive disorder Mass of parotid gland FABIOLA (obstructive sleep apnea) Post traumatic stress disorder (PTSD) Pseudoseizures Tobacco use Surgical History History of ankle surgery History of appendectomy History of back surgery Hx of cholecystectomy Family History Family History Mother COPD (chronic obstructive pulmonary disease) Social History Social History Household Members: None Household Members Other:: [facility] in [place] Housing: Apartment Housing Other:: Sleeps on the couch at [facility] house Do you presently have visiting nurse or other home services: Yes (twice a day) Unable to assess alcohol history related to: Unknown Alcohol intake: unknown Patient Tobacco Use Status: Current everyday Tobacco user Tobacco use type: Cigarette Cigarette Packs Per Day: 3 Cigarettes Per Day: 10 Years Smoked: 34 Smoked in Last 30 Days: No e-Cigarette/Vaping Use: Former Use Second Hand Smoke Exposure: No Substance Use Type: Crack/Cocaine Advance Directives: Yes Advance Directives on File: Yes Advance Directives Date on File: 06/17/22 Patient : No service: No Current occupational status: unemployed and disabled Sexual orientation: Straight/Heterosexual Physical Exam ED Vital Signs: Vital Signs - 24 hr 12/26/22 10:14 12/26/22 10:19 12/26/22 11:23 Temperature 98.5 F Pulse Rate 82 78 Respiratory Rate 18 18 Blood Pressure 167/96 H 125/66 Pulse Oximetry 99 94 Oxygen Delivery Method Room Air Room Air BMI result Body Mass Index 39.3 Const General: cooperative and no acute distress Orientation/consciousness: patient oriented x3 Limitations: no limitations HENMT Head: Yes normal to inspection and Yes atraumatic Ears: hearing grossly normal bilaterally General nose exam: Normal external nose present Face and sinus: Yes normal facial exam Eyes General: appearance normal, both eyes and all related structures EOM: EOMs intact bilaterally Neck Neck: Yes normal visual inspection and Yes no meningeal signs Resp Effort & Inspection: normal respiratory effort and no respiratory distress Auscultation: wheezes expiratory wheezes Cardio Rate: regular rate Heart sounds: S1 normal heart sound present and S2 normal heart sound present GI Inspection: Yes normal to inspection Palpation (GI): Soft to palpation, Tenderness to palpation present (GI) (Diffusely) with no rebound tenderness, no guarding and not rigid General: Yes no CVA tenderness Back/Spine/Pelvis Back: no CVA tenderness Skin Rashes: no rashes Wounds: no wounds Neuro General: patient oriented x3, tone normal and no meningeal signs Gait exam (Neuro): Normal gait present Extrem General: Yes normal to inspection and Yes no pedal edema Course Course Course Narrative: -1217--labs unremarkable. UA contaminated however with wbc's and leuk esterase, will treat with IV Rocephin XR chest 1VIMPRESSION: *? Newly developed linear opacity likely platelike atelectasis left lower lobe. *? Mild diffuse interstitial and peribronchial cuffing might be small airway disease such as bronchiolitis or interstitial pneumonitis. ? > additional DuoNeb ordered 1330--CT abdomen pelvis w IV con IMPRESSION: *? No CT evidence of acute intra-abdominal process to explain patient's symptoms. ? *? Redemonstration of small hypogastric anterior abdominal wall hernia containing fat and mesentery unchanged. ? *? Tiny nonobstructing left kidney stones. ? *? Other noncritical findings include cholecystectomy, tiny hypodense structures in the renal cortices that are too small to characterize most commonly evolving cysts, degenerative disease of the lumbar spine especially L5-S1. -1330--On re-evaluation patient would like to sign out AMA, reports she is thirsty & her nurse is coming to her house to give her medications. Patient refused additional DuoNeb. Discussed risks of leaving including , permanent disability/pain. Patient is A&O x3, competent to make decisions and will sign out AMA Medical Decision Making Medical Decision Making MDM Narrative: 52-year-old female with a past medical history of asthma/COPD, bipolar, depression, substance abuse, intermittent explosive disorder, PTSD, FABIOLA, pseudoseizures, presenting to the ED via EMS complaining of periumbilical abdominal pain, diarrhea, dysuria x few days. On exam vital signs stable, NAD/nontoxic-appearing, diffuse expiratory wheeze noted, abdomen soft diffusely tender, no rebound or guarding. Concern for asthma/COPD exacerbation vs viral syndrome vs pneumonia. Concern for diverticulitis/appendicitis vs colitis vs pancreatitis vs UTI Plan: EKG, labs, UA, CXR, CT AP, IVF, pain control Please refer to course for remaining clinical decision making, interpretation of labs/imaging results, and discussions with consultants and/or family members. Differential Diagnosis Differential Diagnoses: The differential diagnosis associated with the presentation includes as above Admission/Observation Consideration of admission/observation: Escalation of care including admission/observation considered Lab Data MDM Lab Attestation statement: I reviewed the patient's lab results. 12/26/22 10:43 12/26/22 10:44 Labs: Lab Results 12/26/22 12/26/22 12/26/22 Range/Units 10:43 10:43 10:44 WBC 6.5 (4.8-10.8) X10*3/uL RBC 4.42 (4.20-5.50) X10*6/uL Hgb 13.5 (12.0-16.0) g/dl Hct 42.7 (37.0-47.0) % MCV 96.6 (80.0-98.0) fL MCH 30.5 (27.0-33.0) pg MCHC 31.6 (31.0-35.0) g/dl RDW 14.4 (11.0-16.0) % Plt Count 305 (160-400) X10*3/uL MPV 9.7 (9.4-12.3) fL Immature Gran % (Auto) 0.3 (0.0-0.4) % Neut % (Auto) 60.8 (45-73) % Lymph % (Auto) 28.3 (20-40) % Desha % (Auto) 6.3 (2-11) % Eos % (Auto) 3.2 (0-4) % Baso % (Auto) 1.1 (0-2) % Lymph # (Auto) 1.8 (1.2-4.9) X10*3/uL Desha # (Auto) 0.4 (0.1-1.2) X10*3/uL Eos # (Auto) 0.2 (0.0-0.4) X10*3/uL Baso # (Auto) 0.1 (0.0-0.2) X10*3/uL Abs Immat Gran (auto) 0.02 (0.00-0.03) X10*3/uL Absolute Neuts (auto) 4.0 (2.0-8.3) x10*3/uL Absolute Nucleated RBC 0.000 (0.0-0.012) X10*3/uL Nucleated RBC % (auto) 0.0 (0.0-0.2) /100WBC PT (10.0-13.1) SEC INR (0.9-1.1) Sodium 141 (135-145) mmol/L Potassium 4.5 (3.3-5.1) mmol/L Chloride 107 (96-108) mmol/L Carbon Dioxide 27 (22-29) mmol/L Anion Gap 12 (12-20) BUN 9 (9-16) mg/dL Creatinine 0.73 (0.5-1.4) mg/dL Estim Creat Clear Calc 111.9 Estimated GFR > 60 Random Glucose 99 (60-115) mg/dL Calcium 9.3 (8.4-10.2) mg/dL Magnesium 1.9 (1.6-2.6) mg/dL Total Bilirubin 0.6 (0.0-1.0) mg/dL Direct Bilirubin < 0.2 (0.0-0.5) mg/dL AST 18 (5-31) U/L ALT 17 (0-31) U/L Alkaline Phosphatase 83 (39-117) U/L Total Protein 6.7 (6.5-8.0) g/dL Albumin 4.2 (3.5-5.0) g/dL Lipase 24 (8-78) U/L Urine Color Urine Appearance Urine pH (5.0-9.0) Ur Specific [place] (1.005-1.025) Urine Protein (Neg-Trace) mg/dL Urine Glucose (UA) (Negative) mg/dL Urine Ketones (Negative) mg/dL Urine Blood (Negative) Urine Nitrite (Negative) Ur Leukocyte Esterase (Negative) Urine RBC (0-2) /HPF Urine WBC (0-5) /HPF Ur Squamous Epith Cells (0-2) /HPF Urine Bacteria (None Seen) Hyaline Casts (0-2) /LPF COVID-19 (ENDY) Negative (Negative) COVID-19 Clin Com See Note 12/26/22 12/26/22 Range/Units 10:44 10:48 WBC (4.8-10.8) X10*3/uL RBC (4.20-5.50) X10*6/uL Hgb (12.0-16.0) g/dl Hct (37.0-47.0) % MCV (80.0-98.0) fL MCH (27.0-33.0) pg MCHC (31.0-35.0) g/dl RDW (11.0-16.0) % Plt Count (160-400) X10*3/uL MPV (9.4-12.3) fL Immature Gran % (Auto) (0.0-0.4) % Neut % (Auto) (45-73) % Lymph % (Auto) (20-40) % Desha % (Auto) (2-11) % Eos % (Auto) (0-4) % Baso % (Auto) (0-2) % Lymph # (Auto) (1.2-4.9) X10*3/uL Desha # (Auto) (0.1-1.2) X10*3/uL Eos # (Auto) (0.0-0.4) X10*3/uL Baso # (Auto) (0.0-0.2) X10*3/uL Abs Immat Gran (auto) (0.00-0.03) X10*3/uL Absolute Neuts (auto) (2.0-8.3) x10*3/uL Absolute Nucleated RBC (0.0-0.012) X10*3/uL Nucleated RBC % (auto) (0.0-0.2) /100WBC PT 11.1 (10.0-13.1) SEC INR 1.0 (0.9-1.1) Sodium (135-145) mmol/L Potassium (3.3-5.1) mmol/L Chloride (96-108) mmol/L Carbon Dioxide (22-29) mmol/L Anion Gap (12-20) BUN (9-16) mg/dL Creatinine (0.5-1.4) mg/dL Estim Creat Clear Calc Estimated GFR Random Glucose (60-115) mg/dL Calcium (8.4-10.2) mg/dL Magnesium (1.6-2.6) mg/dL Total Bilirubin (0.0-1.0) mg/dL Direct Bilirubin (0.0-0.5) mg/dL AST (5-31) U/L ALT (0-31) U/L Alkaline Phosphatase (39-117) U/L Total Protein (6.5-8.0) g/dL Albumin (3.5-5.0) g/dL Lipase (8-78) U/L Urine Color Dark Yellow Urine Appearance Cloudy Urine pH 5.5 (5.0-9.0) Ur Specific [place] 1.020 (1.005-1.025) Urine Protein 30 (1+) H (Neg-Trace) mg/dL Urine Glucose (UA) Negative (Negative) mg/dL Urine Ketones Trace (Negative) mg/dL Urine Blood Negative (Negative) Urine Nitrite Negative (Negative) Ur Leukocyte Esterase Large (3+) H (Negative) Urine RBC 3-5 H (0-2) /HPF Urine WBC >50 H (0-5) /HPF Ur Squamous Epith Cells >20 (0-2) /HPF Urine Bacteria 1+ (None Seen) Hyaline Casts 6-10 (0-2) /LPF COVID-19 (ENDY) (Negative) COVID-19 Clin Com Independent Interpretation I performed an independent interpretation of an: EKG (My interpretation normal sinus rhythm at a rate of 72. IA interval 138. QTC 457. No STEMI) Radiology Impression Discussion of test interpretation with radiology: I have reviewed the radiologist's reading. External Record Review External record reviewed: Office record, Outpatient record, Prior outpatient labs, Prior outpatient radiology and Primary care record Prescription Management I considered prescription management with: Pain Medication Medications Administered Discontinued Medications Generic Name Dose Route Start Last Admin Trade Name Freq PRN Reason Stop Dose Admin Albuterol Sulfate 2.5 mg/ 0 mg 12/26/22 10:31 12/26/22 11:22 Ipratropium [place] 0.5 mg INHALE 12/26/22 10:32 1 each ONCE ONE Administration Albuterol Sulfate 5 mg/ 0 mg 12/26/22 12:17 12/26/22 13:24 Ipratropium [place] 0.5 mg INHALE 12/26/22 12:18 Not Given ONCE ONE Sodium Chloride 1,000 mls @ 999 mls/hr 12/26/22 10:45 12/26/22 11:47 Ns IV 12/26/22 11:45 Infused .Q1H1M TEJA Infusion Ceftriaxone Sodium 1 gm/ 50 mls @ 100 mls/hr 12/26/22 12:18 12/26/22 12:57 Sodium Chloride IV 12/26/22 12:47 Infused ONCE ONE Infusion Iohexol 100 ml 12/26/22 12:38 12/26/22 12:39 Iohexol 350 Mg/Ml 100 Ml Infus..Btl IV 12/26/22 12:39 85 ml ONCE ONE Administration Ketorolac Tromethamine 15 mg 12/26/22 10:31 12/26/22 10:50 Ketorolac Tromethamine 15 Mg/Ml Vial IVPUSH 12/26/22 10:32 15 mg ONCE ONE Administration Discharge Plan Discharge Clinical Impression: Acute exacerbation of COPD with asthma, UTI (urinary tract infection) Patient Disposition: Still a Patient Prescriptions: No Action albuterol sulfate 90 mcg/actuation HFA aerosol inhaler 2 puff inhalation Q4-6H PRN (Reason: shortness of breath or wheezing) 30 Days Qty: 1 0RF ferrous sulfate 324 mg (65 mg iron) tablet,delayed release (DR/EC) 324 mg PO DAILY 30 Days Qty: 30 0RF capsaicin 0.025 % cream 1 appl topical QID PRN (Reason: pain) oxcarbazepine 150 mg tablet 1 tab PO BID valacyclovir 1 gram tablet 1 tab PO BID benztropine 1 mg tablet 1 tab PO BID omeprazole 20 mg capsule,delayed release(DR/EC) 1 cap PO DAILY@0630 sertraline 50 mg tablet 50 mg PO DAILY cholecalciferol (vitamin D3) 25 mcg (1,000 unit) tablet 1 tab PO DAILY lithium carbonate 600 mg capsule 1 cap PO BID nitroglycerin 0.4 mg tablet, sublingual 0.4 mg sublingual Q5M PRN (Reason: Chest Pain) cyanocobalamin (vitamin B-12) 100 mcg tablet 1 tab PO DAILY olanzapine 10 mg tablet 1 tab PO BEDTIME Spiriva with HandiHaler 18 mcg capsule, w/inhalation device 1 cap inhalation DAILY ropinirole 0.5 mg Tablet 0.5 mg PO BEDTIME Rx Instructions: administer 1-3 hours before bedtime clonidine HCl 0.1 mg Tablet 0.2 mg PO BEDTIME bupropion HCl 150 mg Tablet Extended Release 24 Hr 150 mg PO QAM gabapentin 300 mg Capsule 600 mg PO TID dextromethorphan-guaifenesin 10-100 mg/5 mL Syrup 10 ml PO Q6H PRN (Reason: Cough) Qty: 237 0RF
[2022-12-26 10:55] LABS: Appearance Urine Cloudy; Color Urine Dark Yellow; Glucose Urine UA Negative (Negative); Leukocyte Esterase Urine Large (3+) (Negative); Nitrite Urine Negative (Negative); PH 5.5 (5.0-9.0); UMIC TRIGGER UACC YES; Urine Blood Negative (Negative); Urine Ketones Trace mg/dL (Negative); Urine Protein 30 (1+) mg/dL (Neg-Trace)
[2022-12-26 10:55] LABS: Prothrombin Time 11.1 SEC (10.0-13.1)
[2022-12-26 11:07] LABS: Bacteria Urine 1+ (None Seen); Squamous Epithelial Cell Urine >20 /HPF (0-2); UACC Culture Trigger YES; WBC Urine >50 /HPF (0-5)
[2022-12-26 11:07] LABS: COVID-19 Test Negative (Negative); IDNOW Serial# 9DB6401D
[2022-12-26 11:23] VITALS: PULSE 78; RESP 18; O2SAT 95
[2022-12-26 11:38] LABS: Alanine Aminotransferase 17 U/L (0-31); Albumin Level 4.2 g/dL (3.5-5.0); Alkaline Phosphatase 83 U/L (39-117); Anion Gap 12 (12-20); Aspartate Amino Transferase 18 U/L (5-31); Bilirubin Direct < 0.2 mg/dL (0.0-0.5); Bilirubin Total 0.6 mg/dL (0.0-1.0); Blood Urea Nitrogen 9 mg/dL (9-16); Calcium 9.3 mg/dL (8.4-10.2); Carbon Dioxide 27 mmol/L (22-29); Chloride 107 mmol/L (96-108); Creatinine Clr Calc Pharmacy 111.9; Estimated Glomerular Filt Rate > 60; Glucose Random 99 mg/dL (60-115); Lipase 24 U/L (8-78); Magnesium 1.9 mg/dL (1.6-2.6); Potassium 4.5 mmol/L (3.3-5.1); Sodium 141 mmol/L (135-145); Total Protein 6.7 g/dL (6.5-8.0)
[2022-12-26] MEDS: cefTRIAXone sodium 1 GM in 0.9 % Sodium Chloride 50 ML IV (12:27)
[2022-12-26] MEDS: iohexoL 350 MG/ML 100 ML INFUS..BTL IV (12:39)
== END 2022-12-26 13:50 | disposition left against medical advice (07) ==
PROVIDERS: Physician Assistant; Emergency Provider Emergency Medicine
DX: J44.1 Chronic obstructive pulmonary disease with (acute) exacerbation (principal); N39.0 Urinary tract infection, site not specified; R10.32 Left lower quadrant pain; F14.10 Cocaine abuse, uncomplicated; F17.210 Nicotine dependence, cigarettes, uncomplicated; Z20.822 Contact with and (suspected) exposure to COVID-19; Z20.828 Contact with and (suspected) exposure to other viral communicable diseases; Z71.6 Tobacco abuse counseling; Z79.899 Other long term (current) drug therapy
CPT/HCPCS: 36415; 71045; 74177; 80048; 80076; 81001; 83690; 83735; 85025; 85610; 87086; 87635; 93005; 94640; 96361; 96365; 96375; 99285; J0696; J1885; Q9967

== ENCOUNTER 2022-12-28 17:06 | Inpatient (IN) | payer MEDICAID, SELFPAY ==
[2022-12-28] VITALS (10 sets, daily range): BP systolic 122–173; BP diastolic 62–82; PULSE 79–99; RESP 19–26; TEMP 36.9–37.3; O2SAT 80–96; BMI 44.3
--- NOTE | ~2022-12-28 | XR_ITS ---
EXAMINATION: XR CHEST CLINICAL INFORMATION: Shortness of breath COMPARISON: 12/26/2022 TECHNIQUE: Frontal view of the chest was obtained. FINDINGS: Lung volumes are decreased compared to yesterday. Again seen is peribronchial thickening and left lower lobe atelectasis. Heart size is normal. No evidence of CHF. XR/XR chest 1V IMPRESSION: No acute intrathoracic disease.
--- NOTE | 2022-12-28 17:22 | ECG_ITS ---
Test Reason : DYSPNEA Blood Pressure : / mmHG Vent. Rate : 077 BPM Atrial Rate : 077 BPM P-R Int : 142 ms QRS Dur : 086 ms QT Int : 414 ms P-R-T Axes : 008 022 017 degrees QTc Int : 468 ms Normal sinus rhythm Nonspecific T wave abnormality Prolonged QT Abnormal ECG When compared with ECG of 26-DEC-2022 10:55, No significant change was found Referred By: Kamla Marroquin Electronically Signed By:VAIBHAV KILLIAN MD
--- NOTE | 2022-12-28 17:39 | ED.SOB ---
HPI - SOB/Dyspnea General Chief Complaint: Dyspnea Stated Complaint: SOB Time Seen by Provider: 12/28/22 17:21 Source: patient and EMS Limitations: no limitations History of Present Illness HPI Narrative: 52 female history of asthma, COPD, bipolar disorder, borderline personality disorder, , depression, drug use, herpes, mass of the parotid gland, previous suicide attempts, pseudoseizures presenting to the emergency department with complaints of wheezing since yesterday however shortness of breath since 10:00 this morning, patient reports she has had increased work of breathing since approximately 10:00, has taken 5 puffs of her albuterol inhaler with little to no relief. Patient reports associated fatigue and malaise. Denies chest pain, nausea, vomiting, abdominal pain, headache, vision changes, dizziness, weakness, cough, sore throat, recent sick contacts. Related Data Home Medications Medication Instructions Recorded Confirmed capsaicin 0.025 % topical cream 1 appl topical QID PRN pain 07/02/22 12/16/22 benztropine 1 mg tablet 1 tab PO BID 07/23/22 12/16/22 cholecalciferol (vitamin D3) 25 1 tab PO DAILY 07/23/22 12/16/22 mcg (1,000 unit) tablet omeprazole 20 mg capsule,delayed 1 cap PO DAILY@0630 07/23/22 12/16/22 release oxcarbazepine 150 mg tablet 1 tab PO BID 07/23/22 12/16/22 sertraline 50 mg tablet 50 mg PO DAILY 07/23/22 12/16/22 valacyclovir 1 gram tablet 1 tab PO BID 07/23/22 12/16/22 lithium carbonate 600 mg capsule 1 cap PO BID 07/24/22 12/16/22 cyanocobalamin (vitamin B-12) 100 1 tab PO DAILY 08/06/22 12/16/22 mcg tablet nitroglycerin 0.4 mg sublingual 0.4 mg sublingual Q5M PRN Chest 08/06/22 12/16/22 tablet Pain olanzapine 10 mg tablet 1 tab PO BEDTIME 08/06/22 12/16/22 bupropion HCl 150 mg 24 hr tablet, 150 mg PO QAM 09/23/22 12/16/22 extended release clonidine HCl 0.1 mg tablet 0.2 mg PO BEDTIME 09/23/22 12/16/22 ropinirole 0.5 mg tablet 0.5 mg PO BEDTIME 09/23/22 12/16/22 tiotropium bromide 18 mcg capsule 1 cap inhalation DAILY 09/23/22 12/16/22 with inhalation device (Spiriva with HandiHaler) gabapentin 300 mg capsule 600 mg PO TID 11/29/22 12/16/22 Previous Rx's Medication Instructions Recorded albuterol sulfate 90 mcg/actuation 2 puff inhalation Q4-6H PRN 04/20/22 aerosol inhaler shortness of breath or wheezing 30 days #1 inhaler ferrous sulfate 324 mg (65 mg 324 mg PO DAILY 30 days #30 tabs 05/18/22 iron) tablet,delayed release dextromethorphan-guaifenesin 10 10 ml PO Q6H PRN Cough #237 mL 11/30/22 mg-100 mg/5 mL oral syrup cefuroxime axetil 250 mg tablet 250 mg PO BID 7 days #14 tabs 12/26/22 prednisone 20 mg tablet 40 mg PO DAILY 5 days #10 tabs 12/26/22 albuterol sulfate 90 mcg/actuation 2 inh inhalation Q4-6H PRN 12/28/22 breath activated powder inhaler shortness of breath or wheezing #1 ea prednisone 20 mg tablet 40 mg PO DAILY 5 days #10 tabs 12/28/22 Allergies Allergy/AdvReac Type Severity Reaction Status Date / Time ampicillin Allergy Rash Verified 12/26/22 10:32 seafood AdvReac Stomach Verified 12/26/22 10:32 Upset Review of Systems Review of Systems: Constitutional : No Weight loss, No Fever, No Chills, No Fatigue, No Malaise ENT/Mouth : No sore throat, No Rhinorrhea Eyes: No Eye Pain, No Swelling, No Redness Cardiovascular : No Chest Pain, + SOB, No Dyspnea on Exertion, No Orthopnea, No Edema, No Palpitations Respiratory : No Cough, No Sputum, + Wheezing Gastrointestinal : No Nausea, No Vomiting, No Diarrhea, No Constipation, No abdominal Pain, No Hematochezia, No Melena Genitourinary : No Dysuria, No Urinary Frequency, No Hematuria, Musculoskeletal : No joint pain, No Myalgias, No Joint Swelling Skin : No Skin Lesions, No rash Neuro : No Weakness, No Numbness, No Dizziness, No Headache Psych : No Anxiety/Panic, No Depression All other systems reviewed and are negative Yes all other systems are reviewed and are negative [facility] Past Medical History Attestation statement: The following information was validated with the patient. Source: old records reviewed and nursing notes reviewed Medical History Asthma exacerbation in COPD Asthma-COPD overlap syndrome Bipolar disorder Bipolar I disorder Borderline personality disorder COPD (chronic obstructive pulmonary disease) Depression Drug abuse Herpes Intermittent explosive disorder Mass of parotid gland FABIOLA (obstructive sleep apnea) Post traumatic stress disorder (PTSD) Pseudoseizures Tobacco use Surgical History History of ankle surgery History of appendectomy History of back surgery Hx of cholecystectomy Family History Family History Mother COPD (chronic obstructive pulmonary disease) Social History Social History Household Members: None Household Members Other:: [facility] [place] Housing: Apartment Housing Other:: Sleeps on the couch at [facility] house Do you presently have visiting nurse or other home services: Yes (twice a day) Unable to assess alcohol history related to: Unknown Alcohol intake: unknown Patient Tobacco Use Status: Current everyday Tobacco user Tobacco use type: Cigarette Cigarette Packs Per Day: 3 Cigarettes Per Day: 10 Years Smoked: 34 e-Cigarette/Vaping Use: Former Use Second Hand Smoke Exposure: No Substance Use Type: Crack/Cocaine Advance Directives: Yes Advance Directives on File: Yes Advance Directives Date on File: 06/17/22 service: No Current occupational status: unemployed and disabled Sexual orientation: Straight/Heterosexual Physical Exam Vital Signs: Vital Signs: Last Vital Signs Temp 99.1 F 12/28/22 22:22 Pulse 93 12/28/22 22:43 Resp 20 12/28/22 22:43 BP 122/62 12/28/22 22:22 Pulse Ox 92 12/28/22 22:22 O2 Del Method 12/28/22 22:22 BMI result Body Mass Index 44.3 Patient is noted to be tachypneic with labored breathing. Appearance: Alert.? Oriented X3.? No acute distress.? Patient with accessory muscles for breathing. Head: Normocephalic, atraumatic, no step-offs or deformities Eyes: Pupils equal, round and reactive to light.? ENT: Pharynx normal.? Neck: Normal inspection.? Neck supple.? CVS: Normal heart rate and rhythm.? Pulses normal.? Respiratory: No respiratory distress.? Breath sounds significant for inspiratory and expiratory wheezing throughout..? Abdomen: Soft and nontender.? Skin: Skin warm and dry.? Normal skin color.? Normal skin turgor.? Extremities: No lower extremity edema.? No calf ttp. 5/5 strength to bilateral upper and lower extremities Back: No midline tenderness, no C-spine tenderness, full range of motion, no CVA tenderness bilaterally Neuro: Oriented X 3.? No motor deficit.? No sensory deficit. CN 2-12 intact Course Reevaluation(s) Reevaluation #1: CBC with slight leukocytosis 12.3 likely secondary to acute phase reactant from asthma,/chronic lung disease. Patient's carbon dioxide initially 33 on arrival however at this time patient com awake alert speaking in full sentences I suspect this value likely went down after nebulizing treatments magnesium and Solu-Medrol. Patient with normal BNP, history and physical exam not consistent CHF. Urine with leukocyte esterases and 3+ bacteria, patient without UTI symptoms there is a high number of squamous epithelial cells suspected contaminated sample patient with out UTI symptoms will not treat for urinary tract infection at this time. Patient's COVID, influenza negative. Chest x-ray unremarkable. Patient looks and feels much better. Will give another breathing treatment. And re-evaluate. Time: 21:04 Reevaluation #2: Patient is saturating 90% at rest will have her ambulate, patient tells me usually when her oxygen is like this she gets admitted, patient still has significant wheezing.Saturating 88% on RA w/ ambulation and reporting sob. Will admit to the hospital Time: 23:25 Medications Administered Discontinued Medications Generic Name Dose Route Start Last Admin Trade Name Freq PRN Reason Stop Dose Admin Albuterol Sulfate 5 mg 12/28/22 17:39 12/28/22 17:46 Albuterol Sulfate 2.5 Mg/0.5 Ml Vial.Neb INHALE 12/28/22 17:40 5 mg ONCE ONE Administration Albuterol Sulfate 10 mg 12/28/22 19:45 12/28/22 20:01 Albuterol Sulfate (0.083%) 2.5 Mg/3 Ml Vial.Neb INHALE 12/28/22 19:46 10 mg ONCE ONE Administration Albuterol Sulfate 5 mg/ 0 mg 12/28/22 22:29 12/28/22 22:40 Ipratropium [place] 0.5 mg INHALE 12/28/22 22:30 1 each ONCE ONE Administration Magnesium Sulfate 2 gm in 50 mls @ 25 mls/hr 12/28/22 17:43 12/28/22 18:19 Magnesium Sulfate/H2o IV 12/28/22 19:42 25 mls/hr ONCE ONE Administration Methylprednisolone Sodium Succinate 125 mg 12/28/22 17:43 12/28/22 18:19 Methylprednisolone Sod Succ 125 Mg/2 Ml Vial IVPUSH 12/28/22 17:44 125 mg ONCE ONE Administration Morphine Sulfate 2 mg 12/28/22 18:08 12/28/22 19:31 Morphine Sulfate 2 Mg/Ml Cartridge IVPUSH 12/28/22 18:09 2 mg ONCE ONE Administration Protocol Medical Decision Making Medical Decision Making [facility] Narrative: 1748 52-year-old female presents with shortness of breath and wheezing since 10:00. Tells me it feels like her typical asthma exacerbation Physical exam wheezing throughout. Patient using accessory muscles for breathing. Placed on BiPAP upon arrival. Concerns for asthma versus chronic lung disease other differentials include viral illness. Unlikely that this is pulmonary embolism, patient without significant risk factors. Unlikely pneumonia, CHF Plan at this time labs, viral testing. Differential Diagnosis Differential Diagnoses: The differential diagnosis associated with the presentation includes Concerns for asthma versus chronic lung disease other differentials include viral illness. Unlikely that this is pulmonary embolism, patient without significant risk factors. Unlikely pneumonia, CHF Admission/Observation Consideration of admission/observation: Escalation of care including admission/observation considered Lab Data 12/28/22 17:36 12/28/22 17:36 Labs: Lab Results 12/28/22 12/28/22 12/28/22 Range/Units 17:36 17:36 17:36 WBC 12.3 H (4.8-10.8) X10*3/uL RBC 4.23 (4.20-5.50) X10*6/uL Hgb 12.9 (12.0-16.0) g/dl Hct 39.5 (37.0-47.0) % MCV 93.4 (80.0-98.0) fL MCH 30.5 (27.0-33.0) pg MCHC 32.7 (31.0-35.0) g/dl RDW 14.5 (11.0-16.0) % Plt Count 329 (160-400) X10*3/uL MPV 9.6 (9.4-12.3) fL Immature Gran % (Auto) 0.4 (0.0-0.4) % Neut % (Auto) 59.3 (45-73) % Lymph % (Auto) 32.4 (20-40) % Bland % (Auto) 5.9 (2-11) % Eos % (Auto) 1.4 (0-4) % Baso % (Auto) 0.6 (0-2) % Lymph # (Auto) 4.0 (1.2-4.9) X10*3/uL Bland # (Auto) 0.7 (0.1-1.2) X10*3/uL Eos # (Auto) 0.2 (0.0-0.4) X10*3/uL Baso # (Auto) 0.1 (0.0-0.2) X10*3/uL Abs Immat Gran (auto) 0.05 H (0.00-0.03) X10*3/uL Absolute Neuts (auto) 7.3 (2.0-8.3) x10*3/uL Absolute Nucleated RBC 0.000 (0.0-0.012) X10*3/uL Nucleated RBC % (auto) 0.0 (0.0-0.2) /100WBC VBG pH (7.32-7.43) VBG pCO2 mmHg VBG pO2 mmHg VBG HCO3 (22-26) mmol/L VBG O2 Saturation % VBG Base Excess mmol/L Sodium (135-145) mmol/L Potassium (3.3-5.1) mmol/L Chloride (96-108) mmol/L Carbon Dioxide (22-29) mmol/L Anion Gap (12-20) BUN (9-16) mg/dL Creatinine (0.5-1.4) mg/dL Estim Creat Clear Calc Estimated GFR Random Glucose (60-115) mg/dL Calcium (8.4-10.2) mg/dL Magnesium (1.6-2.6) mg/dL Total Bilirubin (0.0-1.0) mg/dL AST (5-31) U/L ALT (0-31) U/L Alkaline Phosphatase (39-117) U/L B-Natriuretic Peptide 26 (<100) pg/mL Total Protein (6.5-8.0) g/dL Albumin (3.5-5.0) g/dL Urine Color Urine Appearance Urine pH (5.0-9.0) Ur Specific [place] (1.005-1.025) Urine Protein (Neg-Trace) mg/dL Urine Glucose (UA) (Negative) mg/dL Urine Ketones (Negative) mg/dL Urine Blood (Negative) Urine Nitrite (Negative) Ur Leukocyte Esterase (Negative) Urine RBC (0-2) /HPF Urine WBC (0-5) /HPF Ur Squamous Epith Cells (0-2) /HPF Urine Bacteria (None Seen) Hyaline Casts (0-2) /LPF COVID-19 (ENDY) Negative (Negative) COVID-19 Clin Com See Note Influenza Type A (KELY) (Negative) Influenza Type B (KELY) (Negative) Influenza A & B Note 12/28/22 12/28/22 12/28/22 Range/Units 18:17 18:29 20:32 WBC (4.8-10.8) X10*3/uL RBC (4.20-5.50) X10*6/uL Hgb (12.0-16.0) g/dl Hct (37.0-47.0) % MCV (80.0-98.0) fL MCH (27.0-33.0) pg MCHC (31.0-35.0) g/dl RDW (11.0-16.0) % Plt Count (160-400) X10*3/uL MPV (9.4-12.3) fL Immature Gran % (Auto) (0.0-0.4) % Neut % (Auto) (45-73) % Lymph % (Auto) (20-40) % Bland % (Auto) (2-11) % Eos % (Auto) (0-4) % Baso % (Auto) (0-2) % Lymph # (Auto) (1.2-4.9) X10*3/uL [place]land # (Auto) (0.1-1.2) X10*3/uL Eos # (Auto) (0.0-0.4) X10*3/uL Baso # (Auto) (0.0-0.2) X10*3/uL Abs Immat Gran (auto) (0.00-0.03) X10*3/uL Absolute Neuts (auto) (2.0-8.3) x10*3/uL Absolute Nucleated RBC (0.0-0.012) X10*3/uL Nucleated RBC % (auto) (0.0-0.2) /100WBC VBG pH (7.32-7.43) VBG pCO2 mmHg VBG pO2 mmHg VBG HCO3 (22-26) mmol/L VBG O2 Saturation % VBG Base Excess mmol/L Sodium 143 (135-145) mmol/L Potassium 3.7 (3.3-5.1) mmol/L Chloride 103 (96-108) mmol/L Carbon Dioxide 33 H (22-29) mmol/L Anion Gap 11 L (12-20) BUN 12 (9-16) mg/dL Creatinine 0.78 (0.5-1.4) mg/dL Estim Creat Clear Calc 115.0 Estimated GFR > 60 Random Glucose 104 (60-115) mg/dL Calcium 9.4 (8.4-10.2) mg/dL Magnesium 2.1 (1.6-2.6) mg/dL Total Bilirubin 0.2 (0.0-1.0) mg/dL AST 11 (5-31) U/L ALT 15 (0-31) U/L Alkaline Phosphatase 84 (39-117) U/L B-Natriuretic Peptide (<100) pg/mL Total Protein 6.7 (6.5-8.0) g/dL Albumin 4.2 (3.5-5.0) g/dL Urine Color Dark Yellow Urine Appearance Cloudy Urine pH 6.5 (5.0-9.0) Ur Specific [place] >= 1.030 H (1.005-1.025) Urine Protein 30 (1+) H (Neg-Trace) mg/dL Urine Glucose (UA) Negative (Negative) mg/dL Urine Ketones Trace (Negative) mg/dL Urine Blood Negative (Negative) Urine Nitrite Negative (Negative) Ur Leukocyte Esterase Large (3+) H (Negative) Urine RBC 0-2 (0-2) /HPF Urine WBC >50 H (0-5) /HPF Ur Squamous Epith Cells 11-20 (0-2) /HPF Urine Bacteria 3+ (None Seen) Hyaline Casts 0-2 (0-2) /LPF COVID-19 (ENDY) (Negative) COVID-19 Clin Com Influenza Type A (KELY) Negative (Negative) Influenza Type B (KELY) Negative (Negative) Influenza A & B Note See Note 12/28/22 Range/Units 22:52 WBC (4.8-10.8) X10*3/uL RBC (4.20-5.50) X10*6/uL Hgb (12.0-16.0) g/dl Hct (37.0-47.0) % MCV (80.0-98.0) fL MCH (27.0-33.0) pg MCHC (31.0-35.0) g/dl RDW (11.0-16.0) % Plt Count (160-400) X10*3/uL MPV (9.4-12.3) fL Immature Gran % (Auto) (0.0-0.4) % Neut % (Auto) (45-73) % Lymph % (Auto) (20-40) % Bland % (Auto) (2-11) % Eos % (Auto) (0-4) % Baso % (Auto) (0-2) % Lymph # (Auto) (1.2-4.9) X10*3/uL Bland # (Auto) (0.1-1.2) X10*3/uL Eos # (Auto) (0.0-0.4) X10*3/uL Baso # (Auto) (0.0-0.2) X10*3/uL Abs Immat Gran (auto) (0.00-0.03) X10*3/uL Absolute Neuts (auto) (2.0-8.3) x10*3/uL Absolute Nucleated RBC (0.0-0.012) X10*3/uL Nucleated RBC % (auto) (0.0-0.2) /100WBC VBG pH 7.35 (7.32-7.43) VBG pCO2 43 mmHg VBG pO2 45 mmHg VBG HCO3 24 (22-26) mmol/L VBG O2 Saturation 73.0 % VBG Base Excess -1.2 mmol/L Sodium (135-145) mmol/L Potassium (3.3-5.1) mmol/L Chloride (96-108) mmol/L Carbon Dioxide (22-29) mmol/L Anion Gap (12-20) BUN (9-16) mg/dL Creatinine (0.5-1.4) mg/dL Estim Creat Clear Calc Estimated GFR Random Glucose (60-115) mg/dL Calcium (8.4-10.2) mg/dL Magnesium (1.6-2.6) mg/dL Total Bilirubin (0.0-1.0) mg/dL AST (5-31) U/L ALT (0-31) U/L Alkaline Phosphatase (39-117) U/L B-Natriuretic Peptide (<100) pg/mL Total Protein (6.5-8.0) g/dL Albumin (3.5-5.0) g/dL Urine Color Urine Appearance Urine pH (5.0-9.0) Ur Specific [place] (1.005-1.025) Urine Protein (Neg-Trace) mg/dL Urine Glucose (UA) (Negative) mg/dL Urine Ketones (Negative) mg/dL Urine Blood (Negative) Urine Nitrite (Negative) Ur Leukocyte Esterase (Negative) Urine RBC (0-2) /HPF Urine WBC (0-5) /HPF Ur Squamous Epith Cells (0-2) /HPF Urine Bacteria (None Seen) Hyaline Casts (0-2) /LPF COVID-19 (ENDY) (Negative) COVID-19 Clin Com Influenza Type A (KELY) (Negative) Influenza Type B (KELY) (Negative) Influenza A & B Note Critical Care Time Critical Care Time Critical Care Time: No Discharge Plan Discharge Clinical Impression: Asthma with exacerbation, Chronic lung disease Patient Disposition: Admitted As Inpatient Instructions: Asthma (ED), How Your Lungs Work (ED) Additional Instructions: Take your medications as prescribed. If you were prescribed antibiotics today, it is important that you take your medication to their entirety, do not skip any doses, do not finish them early. Follow-up with your primary care provider this week. Return to the emergency department with new or worsening symptoms. Such as fevers, chills, chest pain, shortness of breath, nausea, vomiting, dizziness, headache, vision changes, lethargy In case of emergency call 911 Prescriptions: New albuterol sulfate 90 mcg/actuation aerosol powdr breath activated 2 inh inhalation Q4-6H PRN (Reason: shortness of breath or wheezing) Qty: 1 0RF prednisone 20 mg tablet 40 mg PO DAILY 5 Days Qty: 10 0RF No Action albuterol sulfate 90 mcg/actuation HFA aerosol inhaler 2 puff inhalation Q4-6H PRN (Reason: shortness of breath or wheezing) 30 Days Qty: 1 0RF ferrous sulfate 324 mg (65 mg iron) tablet,delayed release (DR/EC) 324 mg PO DAILY 30 Days Qty: 30 0RF capsaicin 0.025 % cream 1 appl topical QID PRN (Reason: pain) oxcarbazepine 150 mg tablet 1 tab PO BID valacyclovir 1 gram tablet 1 tab PO BID benztropine 1 mg tablet 1 tab PO BID omeprazole 20 mg capsule,delayed release(DR/EC) 1 cap PO DAILY@0630 sertraline 50 mg tablet 50 mg PO DAILY cholecalciferol (vitamin D3) 25 mcg (1,000 unit) tablet 1 tab PO DAILY lithium carbonate 600 mg capsule 1 cap PO BID nitroglycerin 0.4 mg tablet, sublingual 0.4 mg sublingual Q5M PRN (Reason: Chest Pain) cyanocobalamin (vitamin B-12) 100 mcg tablet 1 tab PO DAILY olanzapine 10 mg tablet 1 tab PO BEDTIME Spiriva with HandiHaler 18 mcg capsule, w/inhalation device 1 cap inhalation DAILY ropinirole 0.5 mg Tablet 0.5 mg PO BEDTIME Rx Instructions: administer 1-3 hours before bedtime clonidine HCl 0.1 mg Tablet 0.2 mg PO BEDTIME bupropion HCl 150 mg Tablet Extended Release 24 Hr 150 mg PO QAM gabapentin 300 mg Capsule 600 mg PO TID dextromethorphan-guaifenesin 10-100 mg/5 mL Syrup 10 ml PO Q6H PRN (Reason: Cough) Qty: 237 0RF cefuroxime axetil 250 mg tablet 250 mg PO BID 7 Days Qty: 14 0RF prednisone 20 mg tablet 40 mg PO DAILY 5 Days Qty: 10 0RF Referrals: [facility] [Primary Care Provider] - 2 days Stand Alone Forms: Work/School Release
[2022-12-28 17:40] LABS: MANUAL DIFF FLAG NO
[2022-12-28 17:43] LABS: Basophils Absolute Auto 0.1 X10*3/uL (0.0-0.2); Basophils Percent Auto 0.6 % (0-2); Eosinophils Absolute Auto 0.2 X10*3/uL (0.0-0.4); Eosinophils Percent Auto 1.4 % (0-4); Hematocrit 39.5 % (37.0-47.0); Hemoglobin 12.9 g/dl (12.0-16.0); Imm Gran Abs Auto 0.05 X10*3/uL (0.00-0.03); Imm Gran Pct Auto 0.4 % (0.0-0.4); Lymphocytes Percent Auto 32.4 % (20-40); Mean Corpuscular HGB Conc 32.7 g/dl (31.0-35.0); Mean Corpuscular Hemoglobin 30.5 pg (27.0-33.0); Mean Corpuscular Volume 93.4 fL (80.0-98.0); Mean Platelet Volume 9.6 fL (9.4-12.3); Monocytes Absolute Auto 0.7 X10*3/uL (0.1-1.2); Monocytes Percent Auto 5.9 % (2-11); Neutrophils Absolute Auto 7.3 x10*3/uL (2.0-8.3); Neutrophils Percent Auto 59.3 % (45-73); Platelet Count 329 X10*3/uL (160-400); Red Blood Count 4.23 X10*6/uL (4.20-5.50); Red Cell Distribution Width 14.5 % (11.0-16.0); White Blood Count 12.3 X10*3/uL (4.8-10.8)
[2022-12-28] MEDS: Albuterol Sulfate 2.5 MG/0.5 ML VIAL.NEB 5 MG INHALE (17:46)
[2022-12-28 18:05] LABS: COVID-19 Test Negative (Negative); IDNOW Serial# 16C4AD1C
[2022-12-28 18:06] LABS: B Type Natriuretic Peptide 26 pg/mL (<100)
[2022-12-28] MEDS: methylPREDNISolone Sod Succ 125 MG/2 ML VIAL IVPUSH (18:19)
[2022-12-28] MEDS: Magnesium Sulfate/H2O 2 GM/50 ML PIGGYBACK IV (18:19)
[2022-12-28 18:37] LABS: Appearance Urine Cloudy; Color Urine Dark Yellow; Glucose Urine UA Negative (Negative); Leukocyte Esterase Urine Large (3+) (Negative); Nitrite Urine Negative (Negative); PH 6.5 (5.0-9.0); Specific Gravity - Urine >= 1.030 (1.005-1.025); UMIC TRIGGER UACC YES; Urine Blood Negative (Negative); Urine Ketones Trace mg/dL (Negative); Urine Protein 30 (1+) mg/dL (Neg-Trace)
[2022-12-28 18:37] LABS: Alanine Aminotransferase 15 U/L (0-31); Albumin Level 4.2 g/dL (3.5-5.0); Alkaline Phosphatase 84 U/L (39-117); Anion Gap 11 (12-20); Aspartate Amino Transferase 11 U/L (5-31); Bilirubin Total 0.2 mg/dL (0.0-1.0); Blood Urea Nitrogen 12 mg/dL (9-16); Calcium 9.4 mg/dL (8.4-10.2); Carbon Dioxide 33 mmol/L (22-29); Chloride 103 mmol/L (96-108); Estimated Glomerular Filt Rate > 60; Glucose Random 104 mg/dL (60-115); Magnesium 2.1 mg/dL (1.6-2.6); Potassium 3.7 mmol/L (3.3-5.1); Sodium 143 mmol/L (135-145); Total Protein 6.7 g/dL (6.5-8.0)
[2022-12-28 19:11] LABS: Bacteria Urine 3+ (None Seen); Hyaline Casts Urine 0-2 /LPF (0-2); RBC Urine 0-2 /HPF (0-2); UACC Culture Trigger YES; WBC Urine >50 /HPF (0-5)
[2022-12-28] MEDS: Morphine Sulfate 2 MG/ML CARTRIDGE IVPUSH (19:31)
--- NOTE | 2022-12-28 19:37 | PC.NURSE ---
PT medicated per Dec. Pt requested respiratory therapist to come remove CPAP pt reports she is able to breath better compared to before she came to ED.
[2022-12-28] MEDS: Albuterol Sulfate (0.083%) 2.5 MG/3 ML VIAL.NEB 10 MG INHALE (20:01)
[2022-12-28 20:59] LABS: IDNOW Serial# 16C4AD1C
[2022-12-28 21:00] LABS: Influenza A Negative (Negative); Influenza B2 Negative (Negative)
[2022-12-28 23:01] LABS: Venous Blood Gas Refer to POC result
[2022-12-28 23:02] LABS: VBG Base Excess -1.2 mmol/L; VBG HCO3 24 mmol/L (22-26); VBG pCO2 43 mmHg; VBG pH 7.35 (7.32-7.43); VBG pO2 45 mmHg
--- NOTE | 2022-12-28 23:24 | PM.IMHP ---
History of Present Illness Date of Service: 12/28/22 Chief Complaint: Dyspnea This is a 52-year-old female with pertinent history of mood disorder, substance use disorder, COPD/asthma not on home oxygen, fibromyalgia who presents to the emergency department with complaints of dyspnea and wheezing. Patient states she started having dyspnea, worse with exertion this morning. She was not able to complete her sentences due to shortness of breath. She called her PCP who asked the patient to come to the ER. She also complains of associated wheezing. Patient used home inhaler without any relief. She denies fever, chills, chest discomfort, palpitations, abdominal pain, changes in bowel habits. Patient does complain of urinary urgency and dysuria. She was prescribed cefuroxime as an outpatient but continues to have symptoms In the emergency department, patient was found to be hypoxemic requiring 2 L supplemental oxygen Review of Systems Constitutional: Constitutional: Reports lethargy and Reports malaise Cardiovascular: Cardiovascular: Reports dyspnea on exertion Respiratory: Respiratory: Reports dyspnea on exertion and Reports wheezing Gastrointestinal: Gastrointestinal: Reports no additional gastrointestinal complaints Genitourinary: Genitourinary: Reports no additional female genitourinary complaints Allergic/Immunologic: Allergic/Immunologic: Reports wheezing [facility] Medical History Asthma exacerbation in COPD Asthma-COPD overlap syndrome Bipolar disorder Bipolar I disorder Borderline personality disorder COPD (chronic obstructive pulmonary disease) Depression Drug abuse Herpes Intermittent explosive disorder Mass of parotid gland FABIOLA (obstructive sleep apnea) Post traumatic stress disorder (PTSD) Pseudoseizures Tobacco use Family History Mother COPD (chronic obstructive pulmonary disease) Surgical History History of ankle surgery History of appendectomy History of back surgery Hx of cholecystectomy Social History Household Members: None Household Members Other:: Long-Term in [place] Housing: Apartment Housing Other:: Sleeps on the couch at [facility] house Do you presently have visiting nurse or other home services: Yes (twice a day) Unable to assess alcohol history related to: Unknown Alcohol intake: never Patient Tobacco Use Status: Current everyday Tobacco user Tobacco use type: Cigarette Cigarette Packs Per Day: 3 Cigarettes Per Day: 10 Years Smoked: 34 Smoked in Last 30 Days: Yes e-Cigarette/Vaping Use: Former Use Second Hand Smoke Exposure: No Use of substances other than those prescribed or required for medical reasons: No Substance Use Type: Crack/Cocaine Advance Directives: Yes Advance Directives on File: Yes Advance Directives Date on File: 06/17/22 Nutrition Risks: No Nutritional Risk Patient : No service: No Current occupational status: unemployed and disabled Sexual orientation: Straight/Heterosexual Meds Allergies Allergy/AdvReac Type Severity Reaction Status Date / Time ampicillin Allergy Rash Verified 12/26/22 10:32 seafood AdvReac Stomach Verified 12/26/22 10:32 Upset Home Medications Medication Instructions Recorded Confirmed Last Taken Type capsaicin 0.025 % topical cream 1 appl topical QID PRN pain 07/02/22 12/16/22 09/03/22 History benztropine 1 mg tablet 1 tab PO BID 07/23/22 12/16/22 09/03/22 History cholecalciferol (vitamin D3) 25 1 tab PO DAILY 07/23/22 12/16/22 09/03/22 History mcg (1,000 unit) tablet omeprazole 20 mg capsule,delayed 1 cap PO DAILY@0630 07/23/22 12/16/22 09/03/22 History release oxcarbazepine 150 mg tablet 1 tab PO BID 07/23/22 12/16/22 09/03/22 History sertraline 50 mg tablet 50 mg PO DAILY 07/23/22 12/16/22 09/03/22 History valacyclovir 1 gram tablet 1 tab PO BID 07/23/22 12/16/22 09/03/22 History lithium carbonate 600 mg capsule 1 cap PO BID 07/24/22 12/16/22 09/03/22 History cyanocobalamin (vitamin B-12) 100 1 tab PO DAILY 08/06/22 12/16/22 09/03/22 History mcg tablet nitroglycerin 0.4 mg sublingual 0.4 mg sublingual Q5M PRN Chest 08/06/22 12/16/22 09/03/22 History tablet Pain olanzapine 10 mg tablet 1 tab PO BEDTIME 08/06/22 12/16/22 09/03/22 History bupropion HCl 150 mg 24 hr tablet, 150 mg PO QAM 09/23/22 12/16/22 Unknown History extended release clonidine HCl 0.1 mg tablet 0.2 mg PO BEDTIME 09/23/22 12/16/22 Unknown History ropinirole 0.5 mg tablet 0.5 mg PO BEDTIME 09/23/22 12/16/22 Unknown History tiotropium bromide 18 mcg capsule 1 cap inhalation DAILY 09/23/22 12/16/22 Unknown History with inhalation device (Spiriva with HandiHaler) gabapentin 300 mg capsule 600 mg PO TID 11/29/22 12/16/22 Unknown History Physical Exam Vital Signs and Narrative: Vital Signs: Last Vital Signs Temp 99.1 F 12/28/22 22:22 Pulse 93 12/28/22 22:43 Resp 20 12/28/22 22:43 BP 122/62 12/28/22 22:22 Pulse Ox 92 12/28/22 22:22 O2 Del Method 12/28/22 22:22 BMI result Body Mass Index 44.3 Middle-aged female lying in bed in mild distress on supplemental oxygen Neck supple, no JVD Regular rate and rhythm, S1-S2 heard Bilateral wheezing appreciated cough no crackles Abdomen soft nontender, no guarding, no rigidity Patient is awake, alert and oriented to self, place, time and person ; no focal motor deficit Psych: Normal mood No pedal edema Results Labs 12/28/22 17:36 12/28/22 18:17 Labs: Laboratory Results - last 24 hr 12/28/22 12/28/22 12/28/22 17:36 17:36 17:36 MCV 93.4 MCH 30.5 MCHC 32.7 RDW 14.5 Plt Count 329 MPV 9.6 Immature Gran % (Auto) 0.4 Neut % (Auto) 59.3 Lymph % (Auto) 32.4 [place] % (Auto) 5.9 Eos % (Auto) 1.4 Baso % (Auto) 0.6 Lymph # (Auto) 4.0 [place] # (Auto) 0.7 Eos # (Auto) 0.2 Baso # (Auto) 0.1 Abs Immat Gran (auto) 0.05 H Absolute Neuts (auto) 7.3 Absolute Nucleated RBC 0.000 Nucleated RBC % (auto) 0.0 VBG pH VBG pCO2 VBG pO2 VBG HCO3 VBG O2 Saturation VBG Base Excess Anion Gap Estim Creat Clear Calc Estimated GFR Random Glucose Calcium Magnesium Total Bilirubin AST ALT Alkaline Phosphatase B-Natriuretic Peptide 26 Total Protein Albumin Urine Color Urine Appearance Urine pH Ur Specific [place] Urine Protein Urine Glucose (UA) Urine Ketones Urine Blood Urine Nitrite Ur Leukocyte Esterase Urine RBC Urine WBC Ur Squamous Epith Cells Urine Bacteria Hyaline Casts COVID-19 (ENDY) Negative COVID-19 Clin Com See Note Influenza Type A (KELY) Influenza Type B (KELY) Influenza A & B Note 12/28/22 12/28/22 12/28/22 18:17 18:29 20:32 MCV MCH MCHC RDW Plt Count MPV Immature Gran % (Auto) Neut % (Auto) Lymph % (Auto) [place] % (Auto) Eos % (Auto) Baso % (Auto) Lymph # (Auto) [place] # (Auto) Eos # (Auto) Baso # (Auto) Abs Immat Gran (auto) Absolute Neuts (auto) Absolute Nucleated RBC Nucleated RBC % (auto) VBG pH VBG pCO2 VBG pO2 VBG HCO3 VBG O2 Saturation VBG Base Excess Anion Gap 11 L Estim Creat Clear Calc 115.0 Estimated GFR > 60 Random Glucose 104 Calcium 9.4 Magnesium 2.1 Total Bilirubin 0.2 AST 11 ALT 15 Alkaline Phosphatase 84 B-Natriuretic Peptide Total Protein 6.7 Albumin 4.2 Urine Color Dark Yellow Urine Appearance Cloudy Urine pH 6.5 Ur Specific [place] >= 1.030 H Urine Protein 30 (1+) H Urine Glucose (UA) Negative Urine Ketones Trace Urine Blood Negative Urine Nitrite Negative Ur Leukocyte Esterase Large (3+) H Urine RBC 0-2 Urine WBC >50 H Ur Squamous Epith Cells 11-20 Urine Bacteria 3+ Hyaline Casts 0-2 COVID-19 (ENDY) COVID-19 Clin Com Influenza Type A (KELY) Negative Influenza Type B (KELY) Negative Influenza A & B Note See Note 12/28/22 22:52 MCV MCH MCHC RDW Plt Count MPV Immature Gran % (Auto) Neut % (Auto) Lymph % (Auto) [place] % (Auto) Eos % (Auto) Baso % (Auto) Lymph # (Auto) [place] # (Auto) Eos # (Auto) Baso # (Auto) Abs Immat Gran (auto) Absolute Neuts (auto) Absolute Nucleated RBC Nucleated RBC % (auto) VBG pH 7.35 VBG pCO2 43 VBG pO2 45 VBG HCO3 24 VBG O2 Saturation 73.0 VBG Base Excess -1.2 Anion Gap Estim Creat Clear Calc Estimated GFR Random Glucose Calcium Magnesium Total Bilirubin AST ALT Alkaline Phosphatase B-Natriuretic Peptide Total Protein Albumin Urine Color Urine Appearance Urine pH Ur Specific [place] Urine Protein Urine Glucose (UA) Urine Ketones Urine Blood Urine Nitrite Ur Leukocyte Esterase Urine RBC Urine WBC Ur Squamous Epith Cells Urine Bacteria Hyaline Casts COVID-19 (ENDY) COVID-19 Clin Com Influenza Type A (KELY) Influenza Type B (KELY) Influenza A & B Note Imaging Radiologist's Impressions: Impressions Chest X-Ray 12/28/22 18:15 IMPRESSION: No acute intrathoracic disease. Assessment and Plan (1) Shortness of breath: Status: Acute Plan This is a 52-year-old female with pertinent history of mood disorder, substance use disorder, COPD/asthma not on home oxygen, fibromyalgia who presents to the emergency department with complaints of dyspnea and wheezing. #. Acute hypoxic respiratory failure due to asthma/ COPD exacerbation: Initiating systemic steroids, scheduled and p.r.n. DuoNebs. Continue home inhaler #. Acute UTI: Ordering ceftriaxone while in the hospital. Follow urine culture #. Mood disorder: Continue home mood stabilizers #. GERD on PPI #. FABIOLA on CPAP #. Obesity: Counseled regarding diet and exercise Med rec pending DVT prophylaxis: Lovenox 40 mg daily Regular diet Full code Admit as inpatient and will require two night minimum hospital stay for supplemental oxygen Time Spent With Patient Time: Total time managing care of this patient today ____ minutes. Quality Stroke Does the patient have a stroke diagnosis?: No VTE Prior VTE?: No VTE Risk Level:: Medical - moderate - high VTE Device Contraindication: Treatment Not Indicated VTE Drug Contraindication: N/A - Med Ordered
[2022-12-29 00:18] VITALS: BP 113/54; PULSE 95; RESP 18; TEMP 36.9; O2SAT 94
[2022-12-29] MEDS: 0.9 % Sodium Chloride Flush 3 ML SYRINGE IVFLUSH ×2 (00:26→07:10)
[2022-12-29] MEDS: Acetaminophen 325 MG TABLET 650 MG PO ×2 (00:26→07:48)
--- NOTE | 2022-12-29 02:22 | PC.RT ---
Pt trialed on CPAP for NOC support. Pt unable to reg home settings. Pt states she feels she can't breathe with the mask on at this time. Pt requests to stay on nasal cannula overnight. RN aware
[2022-12-29] MEDS: cloNIDine HCL 0.2 MG TABLET PO (02:42)
[2022-12-29] MEDS: Gabapentin 300 MG CAPSULE 600 MG PO ×2 (02:43→09:54)
[2022-12-29] MEDS: cefTRIAXone sodium 1 GM in 0.9 % Sodium Chloride 50 ML IV (03:06)
[2022-12-29 06:00] VITALS: BP 127/68; PULSE 72; RESP 16; TEMP 36.6; O2SAT 90
[2022-12-29] MEDS: methylPREDNISolone Sod Succ 40 MG/ML VIAL IVPUSH (06:16)
--- NOTE | 2022-12-29 07:10 | PC.NURSE ---
Pt sleeping, respirations even and unlabored. 91-93% on 1L nc
[2022-12-29 07:16] LABS: MANUAL DIFF FLAG NO
--- NOTE | 2022-12-29 07:24 | ECG_ITS ---
Test Reason : CHEST PAIN Blood Pressure : / mmHG Vent. Rate : 095 BPM Atrial Rate : 095 BPM P-R Int : 142 ms QRS Dur : 084 ms QT Int : 322 ms P-R-T Axes : 056 034 032 degrees QTc Int : 404 ms Normal sinus rhythm Possible Left atrial enlargement Borderline ECG When compared with ECG of 28-DEC-2022 17:39, Nonspecific T wave abnormality, improved in Anterior leads QT has shortened Referred By: Kamla Marroquin Electronically Signed By:VAIBHAV KILLIAN MD
[2022-12-29 07:26] LABS: Basophils Percent Auto 0.4 % (0-2); Hematocrit 37.7 % (37.0-47.0); Hemoglobin 11.8 g/dl (12.0-16.0); Imm Gran Abs Auto 0.05 X10*3/uL (0.00-0.03); Imm Gran Pct Auto 0.5 % (0.0-0.4); Lymphocytes Absolute Auto 1.2 X10*3/uL (1.2-4.9); Lymphocytes Percent Auto 11.9 % (20-40); Mean Corpuscular HGB Conc 31.3 g/dl (31.0-35.0); Mean Corpuscular Hemoglobin 29.7 pg (27.0-33.0); Mean Platelet Volume 9.9 fL (9.4-12.3); Monocytes Absolute Auto 0.2 X10*3/uL (0.1-1.2); Monocytes Percent Auto 2.1 % (2-11); Neutrophils Absolute Auto 8.8 x10*3/uL (2.0-8.3); Neutrophils Percent Auto 85.1 % (45-73); Platelet Count 313 X10*3/uL (160-400); Red Blood Count 3.97 X10*6/uL (4.20-5.50); Red Cell Distribution Width 14.5 % (11.0-16.0); White Blood Count 10.4 X10*3/uL (4.8-10.8)
[2022-12-29 07:27] VITALS: BP 120/56; PULSE 68; RESP 14; TEMP 36.6; O2SAT 95
[2022-12-29 07:39] LABS: Blood Urea Nitrogen 10 mg/dL (9-16); Calcium 9.6 mg/dL (8.4-10.2); Creatinine Clr Calc Pharmacy 128.2; Estimated Glomerular Filt Rate > 60; Glucose Random 110 mg/dL (60-115)
[2022-12-29 07:49] LABS: Anion Gap 14 (12-20); Carbon Dioxide 29 mmol/L (22-29); Chloride 103 mmol/L (96-108); Potassium 4.8 mmol/L (3.3-5.1); Sodium 141 mmol/L (135-145)
--- NOTE | 2022-12-29 08:18 | PHA.MEDREC ---
Pharmacy Consult ? Medication Reconciliation Pharmacy has completed the medication reconciliation. Patient confirmed all medications. Christianne Iglesias, DelfinoD
--- NOTE | 2022-12-29 09:13 | MHC.CM.PN ---
PT REPORTS SHE LIVES ALONE IN HER OWN APARTMENT SHE REPORTS SHE HAS NURSING SERVICES THROUGH [facility] SHE USES A WALKER AND CPAP AT HOME SHE HAS A HCP ON FILE AND REPORTS SHE IS COVID VACCINATED X 3 SHE REPORTS HER PCP IS DR PEDERSON AT [facility] DCP: HOME RESUME [facility] SHE WILL NEED [facility] TRANSPORT
[2022-12-29] MEDS: buPROPion HCl XL 150 MG TAB.ER.24H PO (09:53)
[2022-12-29] MEDS: Lithium Carbonate 300 MG CAPSULE 600 MG PO (09:54)
[2022-12-29] MEDS: Sertraline HCL 50 MG TABLET PO (09:54)
[2022-12-29] MEDS: valACYclovir HCL 1,000 MG TABLET 1000 MG PO (09:54)
[2022-12-29] MEDS: OXcarbazepine 150 MG TABLET PO (09:54)
[2022-12-29] MEDS: Cyanocobalamin (Vitamin B-12) 100 MCG TABLET PO (09:54)
[2022-12-29] MEDS: Benztropine Mesylate 1 MG TABLET PO (09:55)
[2022-12-29 11:38] VITALS: PULSE 75; RESP 18; O2SAT 92
--- NOTE | 2022-12-29 11:51 | PC.NURSE ---
Taken of nc, 90-93% on room air. Potential discharge this afternoon
--- NOTE | 2022-12-29 13:06 | PM.DS ---
DS: Providers Provider Date of Service: 12/29/22 Date of admission: 12/28/22 23:21 Primary care physician: [facility] DS: Diagnosis Discharge Diagnosis (1) Shortness of breath: Status: Acute DS: Summary Hospital Course Hospital Course: Date of Service: 12/28/22 Chief Complaint: Dyspnea This is a 52-year-old female with pertinent history of mood disorder, substance use disorder, COPD/asthma not on home oxygen, fibromyalgia who presents to the emergency department with complaints of dyspnea and wheezing.? Patient states she started having dyspnea, worse with exertion this morning.? She was not able to complete her sentences due to shortness of breath.? She called her PCP who asked the patient to come to the ER.? She also complains of associated wheezing.? Patient used home inhaler without any relief.? She denies fever, chills, chest discomfort, palpitations, abdominal pain, changes in bowel habits.? Patient does complain of urinary urgency and dysuria.? She was prescribed cefuroxime as an outpatient but continues to have symptoms In the emergency department, patient was found to be hypoxemic requiring 2 L supplemental oxygen. hospital course acute hypoxic respiratory failure due to asthma / COPD exacerbation. 52-year-old female with pertinent history of mood disorder, substance use disorder, COPD/asthma not on home oxygen, fibromyalgia presented to [place] ER with complaint of shortness of breath and wheezing after being exposed to cleaning agents in the ER patient diagnosed to have Acute hypoxic respiratory failure due to asthma/ COPD exacerbation patient treated with IV steroids, scheduled and as needed updraft treatment patient responded rapidly to above treatment at present feeling better denies shortness of breath, no cough, oxygenation 95% on room air, patient feels significantly better and wanted to be discharged home since she has an appointment with radiation oncologist tomorrow at [facility], since patient is hemodynamically stable she will be discharged home and recommended to finish course of prednisone and continue inhalers as before. in regard to obstructive sleep apnea recommend to continue CPAP, and strongly recommend to abstain from smoking #.Acute UTI: continue Ceftin as recently prescribed urine culture from 12/26 grew mixed bacterial blossom. #.Mood disorder: Continue home mood stabilizers #.? morbid Obesity: Counseled regarding diet and exercise Time Spent with Patient Time attestation: Total time managing care of this patient today ____ minutes. Discharge coordination time: Greater than 30 minutes Quality: Safe Use of Opioids Does Pt have an Active Cancer Diagnosis on the Problem List?: No Quality: Stroke Does the patient have a stroke diagnosis?: No Physical Exam Vital Signs: Vital Signs: Last Vital Signs Temp 97.8 F 12/29/22 07:27 Pulse 75 12/29/22 11:38 Resp 18 12/29/22 11:38 BP 120/56 L 12/29/22 07:27 Pulse Ox 95 12/29/22 07:27 O2 Del Method 12/29/22 07:27 O2 Flow Rate 1 12/29/22 07:27 BMI result Body Mass Index 44.3 Const: Other: General awake alert x 3, in no acute distress.? Neck supple no JVD. CVS? regular rate rhythm, anterior chest wall tenderness to palpation Respiratory lungs clear, no respiratory distress, no crackles, no use of accessory muscles Gastrointestinal abdomen soft, non tender, bowel sounds audible,no guarding , no rigidity. Extremities no edema. Neuro non focal, moving all 4 extremity, speech clear. Skin no rash Psych appropriate affect DS: Data Data Completed and Pending Completed studies during hospitalization [Text1]: Procedures Assistance with Respiratory Ventilation, Less than 24 Consecutive Hours, Continuous Positive Airway Pressure (06/01/22) Drainage of Left Parotid Gland, Percutaneous Approach, Diagnostic (11/09/21) Drainage of Neck, Percutaneous Approach, Diagnostic (03/17/22) Excision of Left Parotid Gland, Percutaneous Approach, Diagnostic (03/17/22) Introduction of Remdesivir Anti-infective into Peripheral Vein, Percutaneous Approach, [employer] 5 (06/01/22) Labs on day of discharge: Laboratory Results - last 24 hr 12/28/22 12/28/22 12/28/22 17:36 17:36 17:36 WBC 12.3 H RBC 4.23 Hgb 12.9 Hct 39.5 MCV 93.4 MCH 30.5 MCHC 32.7 RDW 14.5 Plt Count 329 MPV 9.6 Immature Gran % (Auto) 0.4 Neut % (Auto) 59.3 Lymph % (Auto) 32.4 [place] % (Auto) 5.9 Eos % (Auto) 1.4 Baso % (Auto) 0.6 Lymph # (Auto) 4.0 [place] # (Auto) 0.7 Eos # (Auto) 0.2 Baso # (Auto) 0.1 Abs Immat Gran (auto) 0.05 H Absolute Neuts (auto) 7.3 Absolute Nucleated RBC 0.000 Nucleated RBC % (auto) 0.0 VBG pH VBG pCO2 VBG pO2 VBG HCO3 VBG O2 Saturation VBG Base Excess Sodium Potassium Chloride Carbon Dioxide Anion Gap BUN Creatinine Estim Creat Clear Calc Estimated GFR Random Glucose Calcium Magnesium Total Bilirubin AST ALT Alkaline Phosphatase B-Natriuretic Peptide 26 Total Protein Albumin Urine Color Urine Appearance Urine pH Ur Specific [place] Urine Protein Urine Glucose (UA) Urine Ketones Urine Blood Urine Nitrite Ur Leukocyte Esterase Urine RBC Urine WBC Ur Squamous Epith Cells Urine Bacteria Hyaline Casts COVID-19 (ENDY) Negative COVID-19 Clin Com See Note Influenza Type A (KELY) Influenza Type B (KELY) Influenza A & B Note 12/28/22 12/28/22 12/28/22 18:17 18:29 20:32 WBC RBC Hgb Hct MCV MCH MCHC RDW Plt Count MPV Immature Gran % (Auto) Neut % (Auto) Lymph % (Auto) [place] % (Auto) Eos % (Auto) Baso % (Auto) Lymph # (Auto) [place] # (Auto) Eos # (Auto) Baso # (Auto) Abs Immat Gran (auto) Absolute Neuts (auto) Absolute Nucleated RBC Nucleated RBC % (auto) VBG pH VBG pCO2 VBG pO2 VBG HCO3 VBG O2 Saturation VBG Base Excess Sodium 143 Potassium 3.7 Chloride 103 Carbon Dioxide 33 H Anion Gap 11 L BUN 12 Creatinine 0.78 Estim Creat Clear Calc 115.0 Estimated GFR > 60 Random Glucose 104 Calcium 9.4 Magnesium 2.1 Total Bilirubin 0.2 AST 11 ALT 15 Alkaline Phosphatase 84 B-Natriuretic Peptide Total Protein 6.7 Albumin 4.2 Urine Color Dark Yellow Urine Appearance Cloudy Urine pH 6.5 Ur Specific [place] >= 1.030 H Urine Protein 30 (1+) H Urine Glucose (UA) Negative Urine Ketones Trace Urine Blood Negative Urine Nitrite Negative Ur Leukocyte Esterase Large (3+) H Urine RBC 0-2 Urine WBC >50 H Ur Squamous Epith Cells 11-20 Urine Bacteria 3+ Hyaline Casts 0-2 COVID-19 (ENDY) COVID-19 Clin Com Influenza Type A (KELY) Negative Influenza Type B (KELY) Negative Influenza A & B Note See Note 12/28/22 12/29/2223 22:52 05:56 05:56 WBC 10.4 RBC 3.97 L Hgb 11.8 L Hct 37.7 MCV 95.0 MCH 29.7 MCHC 31.3 RDW 14.5 Plt Count 313 MPV 9.9 Immature Gran % (Auto) 0.5 H Neut % (Auto) 85.1 H Lymph % (Auto) 11.[address] [place] % (Auto) 2.1 Eos % (Auto) 0.0 Baso % (Auto) 0.4 Lymph # (Auto) 1.2 [place] # (Auto) 0.2 Eos # (Auto) 0.0 Baso # (Auto) 0.0 Abs Immat Gran (auto) 0.05 H Absolute Neuts (auto) 8.8 H Absolute Nucleated RBC 0.000 Nucleated RBC % (auto) 0.0 VBG pH 7.35 VBG pCO2 43 VBG pO2 45 VBG HCO3 24 VBG O2 Saturation 73.0 VBG Base Excess -1.2 Sodium 141 Potassium 4.8 D Chloride 103 Carbon Dioxide 29 Anion Gap 14 BUN 10 Creatinine 0.70 Estim Creat Clear Calc 128.2 Estimated GFR > 60 Random Glucose 110 Calcium 9.6 Magnesium Total Bilirubin AST ALT Alkaline Phosphatase B-Natriuretic Peptide Total Protein Albumin Urine Color Urine Appearance Urine pH Ur Specific [place] Urine Protein Urine Glucose (UA) Urine Ketones Urine Blood Urine Nitrite Ur Leukocyte Esterase Urine RBC Urine WBC Ur Squamous Epith Cells Urine Bacteria Hyaline Casts COVID-19 (ENDY) COVID-19 Clin Com Influenza Type A (KELY) Influenza Type B (KELY) Influenza A & B Note Discharge Plan Discharge Anticipated Discharge Date/Time: 12/29/22 13:00 Patient Disposition: Home Health Service Discharge Diagnosis: acute hypoxic respiratory failure due to asthma/ COPD exacerbation UTI Referrals: [facility] [Primary Care Provider] - 2 days Discharge Medications: New albuterol sulfate 90 mcg/actuation aerosol powdr breath activated 2 inh inhalation Q4-6H PRN (Reason: shortness of breath or wheezing) Qty: 1 0RF Continued albuterol sulfate 90 mcg/actuation HFA aerosol inhaler 2 puff inhalation Q4-6H PRN (Reason: shortness of breath or wheezing) 30 Days Qty: 1 0RF ferrous sulfate 324 mg (65 mg iron) tablet,delayed release (DR/EC) 324 mg PO DAILY 30 Days Qty: 30 0RF capsaicin 0.025 % cream 1 appl topical QID PRN (Reason: pain) oxcarbazepine 150 mg tablet 1 tab PO BID valacyclovir 1 gram tablet 1 tab PO BID benztropine 1 mg tablet 1 tab PO BID omeprazole 20 mg capsule,delayed release(DR/EC) 1 cap PO DAILY@0630 sertraline 50 mg tablet 50 mg PO DAILY cholecalciferol (vitamin D3) 25 mcg (1,000 unit) tablet 1 tab PO DAILY lithium carbonate 600 mg capsule 1 cap PO BID nitroglycerin 0.4 mg tablet, sublingual 0.4 mg sublingual Q5M PRN (Reason: Chest Pain) cyanocobalamin (vitamin B-12) 100 mcg tablet 1 tab PO DAILY olanzapine 10 mg tablet 1 tab PO BEDTIME Spiriva with HandiHaler 18 mcg capsule, w/inhalation device 1 cap inhalation DAILY ropinirole 0.5 mg Tablet 0.5 mg PO BEDTIME Rx Instructions: administer 1-3 hours before bedtime clonidine HCl 0.1 mg Tablet 0.2 mg PO BEDTIME bupropion HCl 150 mg Tablet Extended Release 24 Hr 150 mg PO QAM gabapentin 300 mg Capsule 600 mg PO TID dextromethorphan-guaifenesin 10-100 mg/5 mL Syrup 10 ml PO Q6H PRN (Reason: Cough) Qty: 237 0RF cefuroxime axetil 250 mg tablet 250 mg PO BID 7 Days Qty: 14 0RF prednisone 20 mg tablet 40 mg PO DAILY 5 Days Qty: 10 0RF Discharge Orders: Discharge Order (Routine); Ordered 12/29/22 Ordered By: Eric Cavazos Diet: Advance to usual diet Activity on Discharge: As tolerated Stand Alone Forms: Patient Portal Discharge page, Work/School Release Activity Restrictions/Additional Instructions: Take your medications as prescribed. take antibiotic as prescribed, do not skip any doses, do not finish them early. Follow-up with your primary care provider this week. Return to the emergency department with new or worsening symptoms. Such as fevers, chills, chest pain, shortness of breath, nausea, vomiting, dizziness, headache, vision changes, lethargy In case of emergency call 911 Care Plan Goals: COPD/asthma exacerbation due to allergens, avoid all allergens take prednisone as directed and use home inhalers finished course of Ceftin take all medications as before Health Concerns: COPD/obstructive sleep apnea / obesity Plan of Treatment: follow-up with primary care physician call for appointment Assessment: as above Patient Instructions: Asthma (ED), How Your Lungs Work (ED)
== END 2022-12-29 14:21 | disposition home health service (06) | DRG 140 ==
LOC: HO.ED 23:27 → HO.EDOVER 12-29 00:50
PROVIDERS: Physician Assistant; Admitting Provider Student in an Organized Health Care Education/Training Program; Emergency Provider Emergency Medicine; Visit Provider Hospitalist
DX: J44.1 Chronic obstructive pulmonary disease with (acute) exacerbation (principal); J96.01 Acute respiratory failure with hypoxia; N39.0 Urinary tract infection, site not specified; G47.33 Obstructive sleep apnea (adult) (pediatric); F43.10 Post-traumatic stress disorder, unspecified; F17.210 Nicotine dependence, cigarettes, uncomplicated; F31.9 Bipolar disorder, unspecified; M79.7 Fibromyalgia; K21.9 Gastro-esophageal reflux disease without esophagitis; J45.901 Unspecified asthma with (acute) exacerbation; E66.01 Morbid (severe) obesity due to excess calories; F60.3 Borderline personality disorder; Z20.822 Contact with and (suspected) exposure to COVID-19; Z68.41 Body mass index [BMI] 40.0-44.9, adult; Z91.51 Personal history of suicidal behavior; Z59.01 Sheltered homelessness; Z71.6 Tobacco abuse counseling; Z88.1 Allergy status to other antibiotic agents; Z79.52 Long term (current) use of systemic steroids; Z79.899 Other long term (current) drug therapy
CPT/HCPCS: 36415; 71045; 80048; 80053; 81001; 81003; 82803; 83735; 83880; 85025; 87502; 87635; 93005; 94640; 99221; 99285; J0696; J2270; J2920; J2930; J3475

== ENCOUNTER 2022-12-31 21:29 | Emergency (ER) | payer OTHER, MEDICAID, SELFPAY ==
[2022-12-31 21:34] VITALS: BP 144/93; PULSE 120; RESP 16; TEMP 36.6; O2SAT 92; BMI 39.1
--- NOTE | 2022-12-31 21:36 | ED_ITS ---
HPI - Psych General Chief Complaint: Psychiatric Symptoms Stated Complaint: SI Time Seen by Provider: 12/31/22 21:35 Source: patient and EMS Mode of arrival: EMS Limitations: no limitations History of Present Illness HPI Narrative: 52-year-old female presents via EMS for suicidal ideation with plan to jump off a bridge. MD complaint: suicidal ideation, feels depressed, anxiety, substance abuse and hallucinations Onset (ago): year(s) Duration: constant History of same: Yes Relieving factors: none Exacerbating factors: drug use Context: recent drug abuse Associated psychiatric symptoms: depression, suicidal ideation, racing thoughts, auditory hallucinations and delusions Associated symptoms: denies other symptoms If self harm: admits thoughts of self harm and has plan Related Data Home Medications Medication Instructions Recorded Confirmed capsaicin 0.025 % topical cream 1 appl topical QID PRN pain 07/02/22 12/31/22 benztropine 1 mg tablet 1 tab PO BID 07/23/22 12/31/22 cholecalciferol (vitamin D3) 25 1 tab PO DAILY 07/23/22 12/31/22 mcg (1,000 unit) tablet omeprazole 20 mg capsule,delayed 1 cap PO DAILY@0630 07/23/22 12/31/22 release oxcarbazepine 150 mg tablet 1 tab PO BID 07/23/22 12/31/22 sertraline 50 mg tablet 50 mg PO DAILY 07/23/22 12/31/22 valacyclovir 1 gram tablet 1 tab PO BID 07/23/22 12/31/22 lithium carbonate 600 mg capsule 1 cap PO BID 07/24/22 12/31/22 cyanocobalamin (vitamin B-12) 100 1 tab PO DAILY 08/06/22 12/31/22 mcg tablet nitroglycerin 0.4 mg sublingual 0.4 mg sublingual Q5M PRN Chest 08/06/22 12/31/22 tablet Pain olanzapine 10 mg tablet 1 tab PO BEDTIME 08/06/22 12/31/22 bupropion HCl 150 mg 24 hr tablet, 150 mg PO QAM 09/23/22 12/31/22 extended release clonidine HCl 0.1 mg tablet 0.2 mg PO BEDTIME 09/23/22 12/31/22 ropinirole 0.5 mg tablet 0.5 mg PO BEDTIME 09/23/22 12/31/22 tiotropium bromide 18 mcg capsule 1 cap inhalation DAILY 09/23/22 12/31/22 with inhalation device (Spiriva with HandiHaler) gabapentin 300 mg capsule 600 mg PO TID 11/29/22 12/31/22 Previous Rx's Medication Instructions Recorded albuterol sulfate 90 mcg/actuation 2 puff inhalation Q4-6H PRN 04/20/22 aerosol inhaler shortness of breath or wheezing 30 days #1 inhaler ferrous sulfate 324 mg (65 mg 324 mg PO DAILY 30 days #30 tabs 05/18/22 iron) tablet,delayed release dextromethorphan-guaifenesin 10 10 ml PO Q6H PRN Cough #237 mL 11/30/22 mg-100 mg/5 mL oral syrup prednisone 20 mg tablet 40 mg PO DAILY 5 days #10 tabs 12/26/22 Allergies Allergy/AdvReac Type Severity Reaction Status Date / Time ampicillin Allergy Rash Verified 12/26/22 10:32 seafood AdvReac Stomach Verified 12/26/22 10:32 Upset Review of Systems Review of Systems: Constitutional: No Fever, No Chills Cardiovascular: No Chest Pain, No SOB Respiratory: No Cough, No Sputum, No Dyspnea Gastrointestinal: No Nausea, No Vomiting, No Diarrhea Genitourinary: No Dysuria, No Urinary Frequency, No Hematuria Musculoskeletal: No Myalgias Skin: No Skin Lesions, No rash Neuro: No Weakness, No Numbness, No Paresthesias, No Dizziness, No Headache Psych: positive Anxiety, positive Depression, positive SI Yes all other systems are reviewed and are negative PMFSH Past Medical History Attestation statement: The following information was validated with the patient. Source: old records reviewed Medical History Asthma exacerbation in COPD Asthma-COPD overlap syndrome Bipolar disorder Bipolar I disorder Borderline personality disorder COPD (chronic obstructive pulmonary disease) Depression Drug abuse Herpes Intermittent explosive disorder Mass of parotid gland FABIOLA (obstructive sleep apnea) Post traumatic stress disorder (PTSD) Pseudoseizures Tobacco use Surgical History History of ankle surgery History of appendectomy History of back surgery Hx of cholecystectomy Family History Family History Mother COPD (chronic obstructive pulmonary disease) Social History Social History Household Members: None Household Members Other:: [facility] in [place] Housing: Apartment Housing Other:: Sleeps on the couch at [facility] house Do you presently have visiting nurse or other home services: Yes (twice a day) Unable to assess alcohol history related to: Unknown Alcohol intake: never Patient Tobacco Use Status: Current everyday Tobacco user Tobacco use type: Cigarette Cigarette Packs Per Day: 3 Cigarettes Per Day: 10 Years Smoked: 34 e-Cigarette/Vaping Use: Former Use Second Hand Smoke Exposure: No Substance Use Type: Crack/Cocaine Advance Directives: Yes Advance Directives on File: Yes Advance Directives Date on File: 06/17/22 service: No Current occupational status: unemployed and disabled Sexual orientation: Straight/Heterosexual Physical Exam Vital Signs: Vital Signs: Last Vital Signs Temp 98 F 12/31/22 21:34 Pulse 120 H 12/31/22 21:34 Resp 16 12/31/22 21:34 BP 144/93 H 12/31/22 21:34 Pulse Ox 92 12/31/22 21:34 O2 Del Method 12/31/22 21:34 BMI result Body Mass Index 39.1 Appearance: Alert. Oriented X3. Moderate emotional distress. Eyes: Pupils equal, round and reactive to light. ENT: Pharynx normal. Neck: Normal inspection. Neck supple. CVS: Tachycardic heart rate and rhythm. Respiratory: No respiratory distress. Abdomen: Soft and nontender. Skin: Skin warm and dry. Normal skin color. Extremities: Gait well balanced well coordinated. Neuro: No motor deficit. No sensory deficit. Cranial nerves 2-12 intact. Course Course Course Narrative: 52-year-old female presents via EMS for command hallucinations telling her to jump off a bridge. Patient presents to this facility on a regular basis, usually test positive for cocaine. Patient is not have any medical complaints this time, denies chest pain or pressure, palpitations, shortness breath, fevers and chills. Will order lab values. Crisis consult. Labs are consistent with her prior values, patient has a colonized urinalysis per baseline. No bacteria or urinary symptoms, will not treat with antibiotics at this time. Medically cleared. 01:43 physician observation. Crisis evaluation pending. Medical Decision Making Differential Diagnosis Differential Diagnoses: The differential diagnosis associated with the presentation includes Substance abuse, suicidal ideation Admission/Observation Consideration of admission/observation: Escalation of care including admission/observation considered May require M5, pending crisis consult Consult Healthcare Provider Management of the patient was discussed with: Behavioral Health Provider Lab Data MDM Lab Attestation statement: I reviewed the patient's lab results. 12/31/22 21:58 12/31/22 21:58 Labs: Lab Results 12/31/22 12/31/22 12/31/22 Range/Units 21:47 21:47 21:47 WBC (4.8-10.8) X10*3/uL RBC (4.20-5.50) X10*6/uL Hgb (12.0-16.0) g/dl Hct (37.0-47.0) % MCV (80.0-98.0) fL MCH (27.0-33.0) pg MCHC (31.0-35.0) g/dl RDW (11.0-16.0) % Plt Count (160-400) X10*3/uL MPV (9.4-12.3) fL Immature Gran % (Auto) (0.0-0.4) % Neut % (Auto) (45-73) % Lymph % (Auto) (20-40) % [place] % (Auto) (2-11) % Eos % (Auto) (0-4) % Baso % (Auto) (0-2) % Lymph # (Auto) (1.2-4.9) X10*3/uL [place] # (Auto) (0.1-1.2) X10*3/uL Eos # (Auto) (0.0-0.4) X10*3/uL Baso # (Auto) (0.0-0.2) X10*3/uL Abs Immat Gran (auto) (0.00-0.03) X10*3/uL Absolute Neuts (auto) (2.0-8.3) x10*3/uL Absolute Nucleated RBC (0.0-0.012) X10*3/uL Nucleated RBC % (auto) (0.0-0.2) /100WBC Sodium (135-145) mmol/L Potassium (3.3-5.1) mmol/L Chloride (96-108) mmol/L Carbon Dioxide (22-29) mmol/L Anion Gap (12-20) BUN (9-16) mg/dL Creatinine (0.5-1.4) mg/dL Estim Creat Clear Calc Estimated GFR Random Glucose (60-115) mg/dL Calcium (8.4-10.2) mg/dL Total Bilirubin (0.0-1.0) mg/dL AST (5-31) U/L ALT (0-31) U/L Alkaline Phosphatase (39-117) U/L Total Protein (6.5-8.0) g/dL Albumin (3.5-5.0) g/dL Urine Color Dark Yellow Urine Appearance Turbid Urine pH 5.5 (5.0-9.0) Ur Specific [place] >= 1.030 H (1.005-1.025) Urine Protein 30 (1+) H (Neg-Trace) mg/dL Urine Glucose (UA) Negative (Negative) mg/dL Urine Ketones Trace (Negative) mg/dL Urine Blood Negative (Negative) Urine Nitrite Negative (Negative) Ur Leukocyte Esterase Large (3+) H (Negative) Urine RBC 6-10 H (0-2) /HPF Urine WBC 11-20 (0-5) /HPF Ur Squamous Epith Cells 11-20 (0-2) /HPF Urine Bacteria 2+ (None Seen) Hyaline Casts 11-20 (0-2) /LPF Granular Casts Present Salicylates (15-30) mg/dL Urine Opiates Screen Not Detected (Not Detect) Urine Fentanyl Screen Not Detected (Not Detect) Acetaminophen (<30) mcg/mL Ur Barbiturates Screen Not Detected (Not Detect) Ur Phencyclidine Scrn Not Detected (Not Detect) Ur Amphetamines Screen Not Detected (Not Detect) U Benzodiazepines Scrn Not Detected (Not Detect) [place] (0.60-1.20) mmol/L Urine Cocaine Screen POSITIVE H (Not Detect) U Marijuana (THC) Screen Not Detected (Not Detect) Ethyl Alcohol mg/dL COVID-19 (ENDY) Negative (Negative) COVID-19 Clin Com See Note 12/31/22 12/31/22 12/31/22 Range/Units 21:58 21:58 21:58 WBC 16.9 H (4.8-10.8) X10*3/uL RBC 4.55 (4.20-5.50) X10*6/uL Hgb 14.0 (12.0-16.0) g/dl Hct 43.3 (37.0-47.0) % MCV 95.2 (80.0-98.0) fL MCH 30.8 (27.0-33.0) pg MCHC 32.3 (31.0-35.0) g/dl RDW 15.0 (11.0-16.0) % Plt Count 364 (160-400) X10*3/uL MPV 9.3 L (9.4-12.3) fL Immature Gran % (Auto) 0.5 H (0.0-0.4) % Neut % (Auto) 77.3 H (45-73) % Lymph % (Auto) 13.9 L (20-40) % [place] % (Auto) 7.6 (2-11) % Eos % (Auto) 0.1 (0-4) % Baso % (Auto) 0.6 (0-2) % Lymph # (Auto) 2.4 (1.2-4.9) X10*3/uL [place] # (Auto) 1.3 H (0.1-1.2) X10*3/uL Eos # (Auto) 0.0 (0.0-0.4) X10*3/uL Baso # (Auto) 0.1 (0.0-0.2) X10*3/uL Abs Immat Gran (auto) 0.09 H (0.00-0.03) X10*3/uL Absolute Neuts (auto) 13.1 H (2.0-8.3) x10*3/uL Absolute Nucleated RBC 0.000 (0.0-0.012) X10*3/uL Nucleated RBC % (auto) 0.0 (0.0-0.2) /100WBC Sodium 141 (135-145) mmol/L Potassium 4.1 (3.3-5.1) mmol/L Chloride 100 (96-108) mmol/L Carbon Dioxide 30 H (22-29) mmol/L Anion Gap 15 (12-20) BUN 25 H (9-16) mg/dL Creatinine 1.29 (0.5-1.4) mg/dL Estim Creat Clear Calc 62.6 Estimated GFR 44 Random Glucose 108 (60-115) mg/dL Calcium 9.9 (8.4-10.2) mg/dL Total Bilirubin 0.5 (0.0-1.0) mg/dL AST 12 (5-31) U/L ALT 13 (0-31) U/L Alkaline Phosphatase 99 (39-117) U/L Total Protein 7.3 (6.5-8.0) g/dL Albumin 4.9 (3.5-5.0) g/dL Urine Color Urine Appearance Urine pH (5.0-9.0) Ur Specific [place] (1.005-1.025) Urine Protein (Neg-Trace) mg/dL Urine Glucose (UA) (Negative) mg/dL Urine Ketones (Negative) mg/dL Urine Blood (Negative) Urine Nitrite (Negative) Ur Leukocyte Esterase (Negative) Urine RBC (0-2) /HPF Urine WBC (0-5) /HPF Ur Squamous Epith Cells (0-2) /HPF Urine Bacteria (None Seen) Hyaline Casts (0-2) /LPF Granular Casts Salicylates < 5.0 L (15-30) mg/dL Urine Opiates Screen (Not Detect) Urine Fentanyl Screen (Not Detect) Acetaminophen < 17 (<30) mcg/mL Ur Barbiturates Screen (Not Detect) Ur Phencyclidine Scrn (Not Detect) Ur Amphetamines Screen (Not Detect) U Benzodiazepines Scrn (Not Detect) [place] 0.75 (0.60-1.20) mmol/L Urine Cocaine Screen (Not Detect) U Marijuana (THC) Screen (Not Detect) Ethyl Alcohol mg/dL COVID-19 (ENDY) (Negative) COVID-19 Clin Com 12/31/22 Range/Units 21:58 WBC (4.8-10.8) X10*3/uL RBC (4.20-5.50) X10*6/uL Hgb (12.0-16.0) g/dl Hct (37.0-47.0) % MCV (80.0-98.0) fL MCH (27.0-33.0) pg MCHC (31.0-35.0) g/dl RDW (11.0-16.0) % Plt Count (160-400) X10*3/uL MPV (9.4-12.3) fL Immature Gran % (Auto) (0.0-0.4) % Neut % (Auto) (45-73) % Lymph % (Auto) (20-40) % [place] % (Auto) (2-11) % Eos % (Auto) (0-4) % Baso % (Auto) (0-2) % Lymph # (Auto) (1.2-4.9) X10*3/uL [place] # (Auto) (0.1-1.2) X10*3/uL Eos # (Auto) (0.0-0.4) X10*3/uL Baso # (Auto) (0.0-0.2) X10*3/uL Abs Immat Gran (auto) (0.00-0.03) X10*3/uL Absolute Neuts (auto) (2.0-8.3) x10*3/uL Absolute Nucleated RBC (0.0-0.012) X10*3/uL Nucleated RBC % (auto) (0.0-0.2) /100WBC Sodium (135-145) mmol/L Potassium (3.3-5.1) mmol/L Chloride (96-108) mmol/L Carbon Dioxide (22-29) mmol/L Anion Gap (12-20) BUN (9-16) mg/dL Creatinine (0.5-1.4) mg/dL Estim Creat Clear Calc Estimated GFR Random Glucose (60-115) mg/dL Calcium (8.4-10.2) mg/dL Total Bilirubin (0.0-1.0) mg/dL AST (5-31) U/L ALT (0-31) U/L Alkaline Phosphatase (39-117) U/L Total Protein (6.5-8.0) g/dL Albumin (3.5-5.0) g/dL Urine Color Urine Appearance Urine pH (5.0-9.0) Ur Specific [place] (1.005-1.025) Urine Protein (Neg-Trace) mg/dL Urine Glucose (UA) (Negative) mg/dL Urine Ketones (Negative) mg/dL Urine Blood (Negative) Urine Nitrite (Negative) Ur Leukocyte Esterase (Negative) Urine RBC (0-2) /HPF Urine WBC (0-5) /HPF Ur Squamous Epith Cells (0-2) /HPF Urine Bacteria (None Seen) Hyaline Casts (0-2) /LPF Granular Casts Salicylates (15-30) mg/dL Urine Opiates Screen (Not Detect) Urine Fentanyl Screen (Not Detect) Acetaminophen (<30) mcg/mL Ur Barbiturates Screen (Not Detect) Ur Phencyclidine Scrn (Not Detect) Ur Amphetamines Screen (Not Detect) U Benzodiazepines Scrn (Not Detect) [place] (0.60-1.20) mmol/L Urine Cocaine Screen (Not Detect) U Marijuana (THC) Screen (Not Detect) Ethyl Alcohol < 10 mg/dL COVID-19 (ENDY) (Negative) COVID-19 Clin Com External Record Review External record reviewed: Inpatient record, Outpatient record and Prior outpatient labs Social Determinants Patient?s care significantly limited by Social Determinants of Health including: Other Social Determinant of Health Discharge Plan Discharge Clinical Impression: Drug-induced psychotic disorder, Cocaine use disorder, Borderline personality disorder, Suicidal ideation Patient Disposition: Still a Patient Instructions: Borderline Personality Disorder (DC), Cocaine Abuse (ED), Suicide Prevention (ED) Additional Instructions: Follow-up with outpatient psychiatry as scheduled. Please stop using cocaine. Thank you for choosing this emergency department for evaluation. Please follow-up with primary care physician as needed. Return to the emergency department for any new, concerning, or worsening symptoms. Prescriptions: No Action albuterol sulfate 90 mcg/actuation HFA aerosol inhaler 2 puff inhalation Q4-6H PRN (Reason: shortness of breath or wheezing) 30 Days Qty: 1 0RF ferrous sulfate 324 mg (65 mg iron) tablet,delayed release (DR/EC) 324 mg PO DAILY 30 Days Qty: 30 0RF capsaicin 0.025 % cream 1 appl topical QID PRN (Reason: pain) oxcarbazepine 150 mg tablet 1 tab PO BID valacyclovir 1 gram tablet 1 tab PO BID benztropine 1 mg tablet 1 tab PO BID omeprazole 20 mg capsule,delayed release(DR/EC) 1 cap PO DAILY@0630 sertraline 50 mg tablet 50 mg PO DAILY cholecalciferol (vitamin D3) 25 mcg (1,000 unit) tablet 1 tab PO DAILY lithium carbonate 600 mg capsule 1 cap PO BID nitroglycerin 0.4 mg tablet, sublingual 0.4 mg sublingual Q5M PRN (Reason: Chest Pain) cyanocobalamin (vitamin B-12) 100 mcg tablet 1 tab PO DAILY olanzapine 10 mg tablet 1 tab PO BEDTIME Spiriva with HandiHaler 18 mcg capsule, w/inhalation device 1 cap inhalation DAILY ropinirole 0.5 mg Tablet 0.5 mg PO BEDTIME Rx Instructions: administer 1-3 hours before bedtime clonidine HCl 0.1 mg Tablet 0.2 mg PO BEDTIME bupropion HCl 150 mg Tablet Extended Release 24 Hr 150 mg PO QAM gabapentin 300 mg Capsule 600 mg PO TID dextromethorphan-guaifenesin 10-100 mg/5 mL Syrup 10 ml PO Q6H PRN (Reason: Cough) Qty: 237 0RF prednisone 20 mg tablet 40 mg PO DAILY 5 Days Qty: 10 0RF Interventions: [place]-Suicide Risk Severity Scale Last Done: 12/31/22 21:51
[2022-12-31 21:54] LABS: Appearance Urine Turbid; Color Urine Dark Yellow; Glucose Urine UA Negative (Negative); Leukocyte Esterase Urine Large (3+) (Negative); Nitrite Urine Negative (Negative); PH 5.5 (5.0-9.0); Specific Gravity - Urine >= 1.030 (1.005-1.025); UMIC TRIGGER UA YES; Urine Blood Negative (Negative); Urine Ketones Trace mg/dL (Negative); Urine Protein 30 (1+) mg/dL (Neg-Trace)
[2022-12-31 22:03] LABS: Basophils Absolute Auto 0.1 X10*3/uL (0.0-0.2); Basophils Percent Auto 0.6 % (0-2); Eosinophils Percent Auto 0.1 % (0-4); Hematocrit 43.3 % (37.0-47.0); Imm Gran Abs Auto 0.09 X10*3/uL (0.00-0.03); Imm Gran Pct Auto 0.5 % (0.0-0.4); Lymphocytes Absolute Auto 2.4 X10*3/uL (1.2-4.9); Lymphocytes Percent Auto 13.9 % (20-40); MANUAL DIFF FLAG NO; Mean Corpuscular HGB Conc 32.3 g/dl (31.0-35.0); Mean Corpuscular Hemoglobin 30.8 pg (27.0-33.0); Mean Corpuscular Volume 95.2 fL (80.0-98.0); Mean Platelet Volume 9.3 fL (9.4-12.3); Monocytes Absolute Auto 1.3 X10*3/uL (0.1-1.2); Monocytes Percent Auto 7.6 % (2-11); Neutrophils Absolute Auto 13.1 x10*3/uL (2.0-8.3); Neutrophils Percent Auto 77.3 % (45-73); Platelet Count 364 X10*3/uL (160-400); Red Blood Count 4.55 X10*6/uL (4.20-5.50); White Blood Count 16.9 X10*3/uL (4.8-10.8)
[2022-12-31 22:09] LABS: Amphetamine Screen Urine Not Detected (Not Detect); Barbiturates, Urine Not Detected (Not Detect); Benzodiazepines Screen Urine Not Detected (Not Detect); Cannabinoid Screen Urine Not Detected (Not Detect); Cocaine Screen Urine POSITIVE (Not Detect); Fentanyl, urine Not Detected (Not Detect); Opiate Screen Urine Not Detected (Not Detect); Phencyclidine Screen Urine Not Detected (Not Detect)
[2022-12-31 22:16] LABS: Lithium 0.75 mmol/L (0.60-1.20)
[2022-12-31 22:20] LABS: Bacteria Urine 2+ (None Seen); COVID-19 Test Negative (Negative); Granular Casts Urine Present; IDNOW Serial# 6674DD1D
[2022-12-31 22:25] LABS: Ethanol < 10 mg/dL
[2022-12-31 22:27] LABS: Acetaminophen LAB < 17 mcg/mL (<30); Alanine Aminotransferase 13 U/L (0-31); Albumin Level 4.9 g/dL (3.5-5.0); Alkaline Phosphatase 99 U/L (39-117); Anion Gap 15 (12-20); Aspartate Amino Transferase 12 U/L (5-31); Bilirubin Total 0.5 mg/dL (0.0-1.0); Blood Urea Nitrogen 25 mg/dL (9-16); Calcium 9.9 mg/dL (8.4-10.2); Carbon Dioxide 30 mmol/L (22-29); Chloride 100 mmol/L (96-108); Creatinine Clr Calc Pharmacy 62.6; Estimated Glomerular Filt Rate 44; Glucose Random 108 mg/dL (60-115); Potassium 4.1 mmol/L (3.3-5.1); Salicylate < 5.0 mg/dL (15-30); Sodium 141 mmol/L (135-145); Total Protein 7.3 g/dL (6.5-8.0)
[2023-01-01 02:13] VITALS: BP 132/68; PULSE 96; RESP 18; TEMP 36.6; O2SAT 92
--- NOTE | 2023-01-01 06:13 | PC.NURSE ---
Patient slept through the night, no distress observed/reported, behavior non concerning, med rec completed/pending provider's approval, care consult ordered/pending evaluation, labs order completed, VSS, will continue to monitor.
--- NOTE | 2023-01-01 07:01 | PC.NURSE ---
patient appears to remain asleep at present respirations are even and unlabored patient appears in no distress
[2023-01-01] MEDS: buPROPion HCl XL 150 MG TAB.ER.24H PO (09:49)
[2023-01-01] MEDS: OXcarbazepine 150 MG TABLET PO ×2 (09:49→20:06)
[2023-01-01] MEDS: predniSONE 20 MG TABLET 40 MG PO (09:49)
[2023-01-01] MEDS: valACYclovir HCL 1,000 MG TABLET 1000 MG PO ×2 (09:50→20:06)
[2023-01-01] MEDS: Cholecalciferol (Vitamin D3) 25 MCG TABLET PO (09:53)
[2023-01-01] MEDS: Sertraline HCL 50 MG TABLET PO (09:53)
[2023-01-01] MEDS: Benztropine Mesylate 1 MG TABLET PO ×2 (09:53→20:06)
[2023-01-01] MEDS: Cyanocobalamin (Vitamin B-12) 100 MCG TABLET PO (09:53)
[2023-01-01] MEDS: Gabapentin 300 MG CAPSULE 600 MG PO ×3 (09:53→20:06)
[2023-01-01] MEDS: Ferrous Sulfate 324 MG TABLET.DR PO (09:54)
[2023-01-01] MEDS: Omeprazole 20 MG CAPSULE.DR PO (09:54)
[2023-01-01] MEDS: Lithium Carbonate 300 MG CAPSULE 600 MG PO ×2 (09:54→20:06)
[2023-01-01] MEDS: cloNIDine HCL 0.2 MG TABLET PO (20:06)
[2023-01-01] MEDS: OLANZapine 10 MG TABLET PO (20:06)
[2023-01-01] MEDS: rOPINIRole HCL 0.5 MG TABLET PO (20:08)
[2023-01-01 20:15] VITALS: BP 97/60; PULSE 76; RESP 14; TEMP 36.7
--- NOTE | 2023-01-02 05:02 | PC.NURSE ---
Patient slept through the night, no distress observed/reported, medication compliant, behavior non concerning, disposition per care team is JOHN follow-up in the morning, VSS, will continue to monitor.
[2023-01-02] MEDS: Omeprazole 20 MG CAPSULE.DR PO (06:07)
[2023-01-02 06:15] VITALS: BP 138/72; PULSE 72; RESP 16; TEMP 36.7; O2SAT 91
[2023-01-02] MEDS: predniSONE 20 MG TABLET 40 MG PO (10:21)
[2023-01-02] MEDS: Cholecalciferol (Vitamin D3) 25 MCG TABLET PO (10:21)
[2023-01-02] MEDS: Sertraline HCL 50 MG TABLET PO (10:21)
[2023-01-02] MEDS: valACYclovir HCL 1,000 MG TABLET 1000 MG PO (10:21)
[2023-01-02] MEDS: OXcarbazepine 150 MG TABLET PO (10:21)
[2023-01-02] MEDS: Benztropine Mesylate 1 MG TABLET PO (10:21)
[2023-01-02] MEDS: buPROPion HCl XL 150 MG TAB.ER.24H PO (10:22)
[2023-01-02] MEDS: Cyanocobalamin (Vitamin B-12) 100 MCG TABLET PO (10:22)
[2023-01-02] MEDS: Gabapentin 300 MG CAPSULE 600 MG PO (10:22)
[2023-01-02] MEDS: Lithium Carbonate 300 MG CAPSULE 600 MG PO (10:22)
[2023-01-02] MEDS: Ferrous Sulfate 324 MG TABLET.DR PO (10:22)
--- NOTE | 2023-01-02 12:06 | MHC.CARE ---
patient will be d/c home around 4 or 5 tonight.
--- NOTE | 2023-01-02 13:57 | PC.NURSE ---
pt seen by both the ed provider and care team and is cleared for discharge. care team will provide a lyft for pt to get home. pt aware of plan.
[2023-01-02 14:23] VITALS: BP 104/71; PULSE 89; RESP 20; TEMP 36.9; O2SAT 94
--- NOTE | 2023-01-02 14:43 | PC.NURSE ---
Kristopher provided by Care Team.
== END 2023-01-02 14:43 | disposition home or self-care (01) ==
PROVIDERS: Emergency Provider Emergency Medicine
DX: R45.851 Suicidal ideations (principal); F33.1 Major depressive disorder, recurrent, moderate; F41.1 Generalized anxiety disorder; F43.0 Acute stress reaction; F14.10 Cocaine abuse, uncomplicated; F17.210 Nicotine dependence, cigarettes, uncomplicated; Z20.822 Contact with and (suspected) exposure to COVID-19; Z20.828 Contact with and (suspected) exposure to other viral communicable diseases; Z71.6 Tobacco abuse counseling; Z79.899 Other long term (current) drug therapy
CPT/HCPCS: 36415; 80053; 80143; 80178; 80179; 80307; 81001; 82077; 85025; 87635; 99284; 99285; S9485

== ENCOUNTER 2023-01-14 13:11 | Emergency (ER) | payer MEDICAID, SELFPAY ==
--- NOTE | ~2023-01-14 | XR_ITS ---
EXAMINATION: XR CHEST CLINICAL INFORMATION: Cough. COMPARISON: None available. TECHNIQUE: 2 views of the chest were obtained. FINDINGS: The lungs are well-expanded with focal linear density in the lingula likely atelectasis. Rest of the lungs are clear. Heart size and pulmonary vascularity is normal. No gross bony abnormality seen. XR/XR chest 2V IMPRESSION: Likely lingular atelectasis. Otherwise no acute process seen.
[2023-01-14 13:20] VITALS: BP 150/90; PULSE 90; O2SAT 95
[2023-01-14 14:06] VITALS: BP 128/56; PULSE 83; RESP 18; TEMP 36.3; O2SAT 94; BMI 39.4
--- NOTE | 2023-01-14 14:08 | ED_ITS ---
HPI - General Adult General Chief complaint: Upper Respiratory Symptoms <LASHONDA Leary - Last Filed: 01/14/23 14:09> Stated complaint: COUGH X 2 WEEKS,NOW COUGHING BLOOD <LASHONDA Leary - Last Filed: 01/14/23 14:09> Time Seen by Provider: 01/14/23 14:52 <LASHONDA Leary - Last Filed: 01/14/23 14:09> History of Present Illness HPI narrative: patient complains of 2 weeks of worsening productive cough as well as watery diarrhea 6 times a day for 1 week, no significant abdominal pain no blood in the stool, no vomiting no dark tarry stools She also complains of wheezing and some mild shortness of breath, her doctor has had her on prednisone just 2 weeks ago but now she is wheezing a lot again, symptoms are typical of prior asthma there is no chest pain, no leg swelling no calf pain or tenderness no hemoptysis no fainting or feeling faint, no runny nose no sore throat <LASHONDA Partida - Last Filed: 01/15/23 14:19> Related Data Home medications: Home Medications Medication Instructions Recorded Confirmed capsaicin 0.025 % topical cream 1 appl topical QID PRN pain 07/02/22 12/31/22 benztropine 1 mg tablet 1 tab PO BID 07/23/22 12/31/22 cholecalciferol (vitamin D3) 25 1 tab PO DAILY 07/23/22 12/31/22 mcg (1,000 unit) tablet omeprazole 20 mg capsule,delayed 1 cap PO DAILY@0630 07/23/22 12/31/22 release oxcarbazepine 150 mg tablet 1 tab PO BID 07/23/22 12/31/22 sertraline 50 mg tablet 50 mg PO DAILY 07/23/22 12/31/22 valacyclovir 1 gram tablet 1 tab PO BID 07/23/22 12/31/22 lithium carbonate 600 mg capsule 1 cap PO BID 07/24/22 12/31/22 cyanocobalamin (vitamin B-12) 100 1 tab PO DAILY 08/06/22 12/31/22 mcg tablet nitroglycerin 0.4 mg sublingual 0.4 mg sublingual Q5M PRN Chest 08/06/22 12/31/22 tablet Pain olanzapine 10 mg tablet 1 tab PO BEDTIME 08/06/22 12/31/22 bupropion HCl 150 mg 24 hr tablet, 150 mg PO QAM 09/23/22 12/31/22 extended release clonidine HCl 0.1 mg tablet 0.2 mg PO BEDTIME 09/23/22 12/31/22 ropinirole 0.5 mg tablet 0.5 mg PO BEDTIME 09/23/22 12/31/22 tiotropium bromide 18 mcg capsule 1 cap inhalation DAILY 09/23/22 12/31/22 with inhalation device (Spiriva with HandiHaler) gabapentin 300 mg capsule 600 mg PO TID 11/29/22 12/31/22 Previous Rx's Medication Instructions Recorded albuterol sulfate 90 mcg/actuation 2 puff inhalation Q4-6H PRN 04/20/22 aerosol inhaler shortness of breath or wheezing 30 days #1 inhaler ferrous sulfate 324 mg (65 mg 324 mg PO DAILY 30 days #30 tabs 05/18/22 iron) tablet,delayed release dextromethorphan-guaifenesin 10 10 ml PO Q6H PRN Cough #237 mL 11/30/22 mg-100 mg/5 mL oral syrup prednisone 20 mg tablet 40 mg PO DAILY 5 days #10 tabs 12/26/22 albuterol sulfate 90 mcg/actuation 2 puff inhalation Q4-6H PRN 01/14/23 aerosol inhaler shortness of breath or wheezing #8.5 grams doxycycline hyclate 100 mg capsule 100 mg PO BID 7 days #14 caps 01/14/23 loperamide 2 mg capsule (Imodium 2 mg PO Q6H PRN loose stool #10 01/14/23 A-D) caps prednisone 20 mg tablet 60 mg PO DAILY 4 days #12 tabs 01/14/23 albuterol sulfate 90 mcg/actuation 2 puff inhalation Q4-6H PRN 01/15/23 aerosol inhaler shortness of breath or wheezing #8.5 grams doxycycline hyclate 100 mg capsule 100 mg PO BID 7 days #14 caps 01/15/23 loperamide 2 mg capsule (Imodium 2 mg PO Q6H PRN loose stool #10 01/15/23 A-D) caps prednisone 20 mg tablet 60 mg PO DAILY 4 days #12 tabs 01/15/23 <LASHONDA Leary - Last Filed: 01/14/23 14:09> Allergies/adverse reactions: Allergies Allergy/AdvReac Type Severity Reaction Status Date / Time ampicillin Allergy Rash Verified 12/26/22 10:32 seafood AdvReac Stomach Verified 12/26/22 10:32 Upset <LASHONDA Leary - Last Filed: 01/14/23 14:09> PMFSH Past Medical History Source: nursing notes reviewed <LASHONDA Partida - Last Filed: 01/15/23 14:19> Medical History: Medical History Asthma exacerbation in COPD Asthma-COPD overlap syndrome Bipolar disorder Bipolar I disorder Borderline personality disorder COPD (chronic obstructive pulmonary disease) Depression Drug abuse Herpes Intermittent explosive disorder Mass of parotid gland FABIOLA (obstructive sleep apnea) Post traumatic stress disorder (PTSD) Pseudoseizures Tobacco use <LASHONDA Leary - Last Filed: 01/14/23 14:09> Surgical History: Surgical History History of ankle surgery History of appendectomy History of back surgery Hx of cholecystectomy <LASHONDA Leary - Last Filed: 01/14/23 14:09> Family History Family History: Family History Mother COPD (chronic obstructive pulmonary disease) <LASHONDA Leary - Last Filed: 01/14/23 14:09> Social History Social History: Social History Household Members: None Household Members Other:: [facility] in [place] Housing: Apartment Housing Other:: Sleeps on the couch at [facility] house Do you presently have visiting nurse or other home services: Yes (twice a day) Unable to assess alcohol history related to: Unknown Alcohol intake: never Patient Tobacco Use Status: Current everyday Tobacco user Tobacco use type: Cigarette Cigarette Packs Per Day: 3 Cigarettes Per Day: 10 Years Smoked: 34 Smoked in Last 30 Days: Yes e-Cigarette/Vaping Use: Former Use Second Hand Smoke Exposure: No Use of substances other than those prescribed or required for medical reasons: No Substance Use Type: Crack/Cocaine Advance Directives: Yes Advance Directives on File: Yes Advance Directives Date on File: 06/17/22 Patient : No service: No Current occupational status: unemployed and disabled Sexual orientation: Straight/Heterosexual <LASHONDA Leary Last Filed: 01/14/23 14:09> Physical Exam ED Vital Signs: Vital Signs - 24 hr 01/14/23 14:51 01/14/23 15:50 01/14/23 15:50 Temperature 98.7 F Pulse Rate 80 75 Respiratory Rate 16 15 Blood Pressure 140/68 H Pulse Oximetry 92 96 Oxygen Delivery Method Room Air Room Air 01/14/23 15:51 Temperature 98 F Pulse Rate 81 Respiratory Rate 18 Blood Pressure 135/86 Pulse Oximetry 96 Oxygen Delivery Method Room Air BMI result Body Mass Index 39.4 <LASHONDA Leary Last Filed: 01/14/23 14:09> Vital Signs - 24 hr 01/14/23 14:51 01/14/23 15:50 01/14/23 15:50 Temperature 98.7 F Pulse Rate 80 75 Respiratory Rate 16 15 Blood Pressure 140/68 H Pulse Oximetry 92 96 Oxygen Delivery Method Room Air Room Air 01/14/23 15:51 Temperature 98 F Pulse Rate 81 Respiratory Rate 18 Blood Pressure 135/86 Pulse Oximetry 96 Oxygen Delivery Method Room Air BMI result Body Mass Index 39.4 <LASHONDA Partida Last Filed: 01/15/23 14:19> General appearance no acute distress no respiratory distress speaking full sentences relaxed and comfortable in chair The eyes no redness or discharge anicteric no pallor The sinuses nontender not congested The pharynx clear no redness swelling or exudate membranes are moist Neck is supple Chest there is bilateral wheezing but good air entry bilaterally Heart no murmur Abdomen soft nontender Extremities no edema, no calf tenderness or swelling Skin no rash Neuro no focal motor sensory deficits <LASHONDA Partida Last Filed: 01/15/23 14:19> Course Course Course Narrative: RME performed by Dariana Haq PA-C. Patient is a 53 year old female presenting to the emergency department with a persistent cough. Patient has had a cough for over a week. COVID and CXR ordered. Patient placed back in the waiting room pending results and room availability. <LASHONDA Leary Last Filed: 01/14/23 14:09> RME performed by Dariana Haq PA-C. Patient is a 53 year old female presenting to the emergency department with a persistent cough. Patient has had a cough for over a week. COVID and CXR ordered. Patient placed back in the waiting room pending results and room availability. Well-appearing patient breathing at 16 satting 95 96%, was treated with 1 albuterol treatment with improvement in her wheezing and feeling much better A stool culture was done and she will be informed of results if needed Chest x-ray showed well-expanded lungs with a linear density in the lingula likely atelectasis, no obvious consolidation was seen COVID testing was negative, quick C diff test was negative Well-appearing patient, breathing comfortably, tolerating p.o., no evidence of dehydration was discharged diagnosis bronchitis and diarrhea <LASHONDA Partida - Last Filed: 01/15/23 14:19> Medications Administered Discontinued Medications Generic Name Dose Route Start Last Admin Trade Name Freq PRN Reason Stop Dose Admin Albuterol Sulfate 5 mg/ 0 mg 01/14/23 15:37 01/14/23 15:47 Ipratropium [place] 0.5 mg INHALE 01/14/23 15:38 1 each ONCE ONE Administration Doxycycline Monohydrate 100 mg 01/14/23 15:37 01/14/23 16:02 Doxycycline Monohydrate 100 Mg Capsule PO 01/14/23 15:38 100 mg ONCE ONE Administration Prednisone 60 mg 01/14/23 15:37 01/14/23 16:02 Prednisone 20 Mg Tablet PO 01/14/23 15:38 60 mg ONCE ONE Administration <LASHONDA Leary - Last Filed: 01/14/23 14:09> Medications Administered Discontinued Medications Generic Name Dose Route Start Last Admin Trade Name Freq PRN Reason Stop Dose Admin Albuterol Sulfate 5 mg/ 0 mg 01/14/23 15:37 01/14/23 15:47 Ipratropium [place] 0.5 mg INHALE 01/14/23 15:38 1 each ONCE ONE Administration Doxycycline Monohydrate 100 mg 01/14/23 15:37 01/14/23 16:02 Doxycycline Monohydrate 100 Mg Capsule PO 01/14/23 15:38 100 mg ONCE ONE Administration Prednisone 60 mg 01/14/23 15:37 01/14/23 16:02 Prednisone 20 Mg Tablet PO 01/14/23 15:38 60 mg ONCE ONE Administration <LASHONDA Partida - Last Filed: 01/15/23 14:19> Medical Decision Making Lab Data Labs: Lab Results 01/14/23 01/14/23 01/14/23 Range/Units 13:41 15:47 15:47 Stl C. cayetanensis PCR Not Detected (Not Detect.) Stool Rotavirus A PCR Not Detected (Not Detect.) Stl Adenov F 40/41 PCR Not Detected (Not Detect.) Stool Astrovirus (PCR) Not Detected (Not Detect.) Stool Campylobacter PCR Not Detected (Not Detect.) Stool Cryptosporidium PCR Not Detected (Not Detect.) Stl Sh Tox Pr E STEC PCR Not Detected (Not Detect.) Stool E coli O157 PCR Not applicable (Not Detect.) Stl Enterotoxigenic E PCR Not Detected (Not Detect.) Stool EPEC (PCR) Not Detected (Not Detect.) Stool EAEC (PCR) Not Detected (Not Detect.) Stl E. histolytica PCR Not Detected (Not Detect.) Stool Giardia Lamblia PCR Not Detected (Not Detect.) Stl P. shigelloides PCR Not Detected (Not Detect.) Stool Salmonella PCR Not Detected (Not Detect.) Stool Sapovirus (PCR) Not Detected (Not Detect.) Stl Shigella/EIEC PCR Not Detected (Not Detect.) St Y.enterocolitica PCR Not Detected (Not Detect.) Stool Vibrio (PCR) Not Detected (Not Detect.) Stl Vibrio cholerae PCR Not Detected (Not Detect.) Stl Norovirus GI/GII PCR Not Detected (Not Detect.) C. difficile Tox B Gene NEGATIVE (Negative) COVID-19 (ENDY) Negative (Negative) COVID-19 Clin Com See Note <LASHONDA Leary - Last Filed: 01/14/23 14:09> Lab Results 01/14/23 01/14/23 01/14/23 Range/Units 13:41 15:47 15:47 Stl C. cayetanensis PCR Not Detected (Not Detect.) Stool Rotavirus A PCR Not Detected (Not Detect.) Stl Adenov F 40/41 PCR Not Detected (Not Detect.) Stool Astrovirus (PCR) Not Detected (Not Detect.) Stool Campylobacter PCR Not Detected (Not Detect.) Stool Cryptosporidium PCR Not Detected (Not Detect.) Stl Sh Tox Pr E STEC PCR Not Detected (Not Detect.) Stool E coli O157 PCR Not applicable (Not Detect.) Stl Enterotoxigenic E PCR Not Detected (Not Detect.) Stool EPEC (PCR) Not Detected (Not Detect.) Stool EAEC (PCR) Not Detected (Not Detect.) Stl E. histolytica PCR Not Detected (Not Detect.) Stool Giardia Lamblia PCR Not Detected (Not Detect.) Stl P. shigelloides PCR Not Detected (Not Detect.) Stool Salmonella PCR Not Detected (Not Detect.) Stool Sapovirus (PCR) Not Detected (Not Detect.) Stl Shigella/EIEC PCR Not Detected (Not Detect.) St Y.enterocolitica PCR Not Detected (Not Detect.) Stool Vibrio (PCR) Not Detected (Not Detect.) Stl Vibrio cholerae PCR Not Detected (Not Detect.) Stl Norovirus GI/GII PCR Not Detected (Not Detect.) C. difficile Tox B Gene NEGATIVE (Negative) COVID-19 (ENDY) Negative (Negative) COVID-19 Clin Com See Note <LASHONDA Partida - Last Filed: 01/15/23 14:19> Discharge Plan Discharge Clinical Impression: Bronchitis, Wheezing, Diarrhea <LASHONDA Leary - Last Filed: 01/14/23 14:09> Patient Disposition: Home, Self-Care <LASHONDA Leary - Last Filed: 01/14/23 14:09> Additional Instructions: we are treating possible bronchitis with doxycycline antibiotic We will call you with any of the stool culture comes back positive You can use Imodium if needed for diarrhea, drink plenty of fluids We are starting prednisone for several days, follow with your doctor as well so he knows you are taking another course of prednisone and to discuss whether you need to be seen by a music department chair, and also to discuss whether you might benefit from nebulizer machine Return any time for difficulty breathing any worse condition or any concerns <LASHONDA Leary - Last Filed: 01/14/23 14:09> Prescriptions: New doxycycline hyclate 100 mg capsule 100 mg PO BID 7 Days Qty: 14 0RF albuterol sulfate 90 mcg/actuation HFA aerosol inhaler 2 puff inhalation Q4-6H PRN (Reason: shortness of breath or wheezing) Qty: 8.5 0RF prednisone 20 mg tablet 60 mg PO DAILY 4 Days Qty: 12 0RF loperamide [Imodium A-D] 2 mg capsule 2 mg PO Q6H PRN (Reason: loose stool) Qty: 10 0RF Rx Instructions: administer after each loose stool until symptoms controlled; do not exceed 8 mg per 24 hrs albuterol sulfate 90 mcg/actuation HFA aerosol inhaler 2 puff inhalation Q4-6H PRN (Reason: shortness of breath or wheezing) Qty: 8.5 0RF loperamide [Imodium A-D] 2 mg capsule 2 mg PO Q6H PRN (Reason: loose stool) Qty: 10 0RF Rx Instructions: administer after each loose stool until symptoms controlled; do not exceed 8 mg per 24 hrs prednisone 20 mg tablet 60 mg PO DAILY 4 Days Qty: 12 0RF doxycycline hyclate 100 mg capsule 100 mg PO BID 7 Days Qty: 14 0RF No Action albuterol sulfate 90 mcg/actuation HFA aerosol inhaler 2 puff inhalation Q4-6H PRN (Reason: shortness of breath or wheezing) 30 Days Qty: 1 0RF ferrous sulfate 324 mg (65 mg iron) tablet,delayed release (DR/EC) 324 mg PO DAILY 30 Days Qty: 30 0RF capsaicin 0.025 % cream 1 appl topical QID PRN (Reason: pain) oxcarbazepine 150 mg tablet 1 tab PO BID valacyclovir 1 gram tablet 1 tab PO BID benztropine 1 mg tablet 1 tab PO BID omeprazole 20 mg capsule,delayed release(DR/EC) 1 cap PO DAILY@0630 sertraline 50 mg tablet 50 mg PO DAILY cholecalciferol (vitamin D3) 25 mcg (1,000 unit) tablet 1 tab PO DAILY lithium carbonate 600 mg capsule 1 cap PO BID nitroglycerin 0.4 mg tablet, sublingual 0.4 mg sublingual Q5M PRN (Reason: Chest Pain) cyanocobalamin (vitamin B-12) 100 mcg tablet 1 tab PO DAILY olanzapine 10 mg tablet 1 tab PO BEDTIME Spiriva with HandiHaler 18 mcg capsule, w/inhalation device 1 cap inhalation DAILY ropinirole 0.5 mg Tablet 0.5 mg PO BEDTIME Rx Instructions: administer 1-3 hours before bedtime clonidine HCl 0.1 mg Tablet 0.2 mg PO BEDTIME bupropion HCl 150 mg Tablet Extended Release 24 Hr 150 mg PO QAM gabapentin 300 mg Capsule 600 mg PO TID dextromethorphan-guaifenesin 10-100 mg/5 mL Syrup 10 ml PO Q6H PRN (Reason: Cough) Qty: 237 0RF prednisone 20 mg tablet 40 mg PO DAILY 5 Days Qty: 10 0RF <LASHONDA Leary - Last Filed: 01/14/23 14:09> Interventions: ED Discharge Assessment Last Done: 01/14/23 18:06 <LASHONDA Leary - Last Filed: 01/14/23 14:09> Discharge Date/Time: 01/14/23 18:06 <LASHONDA Leary - Last Filed: 01/14/23 14:09>
[2023-01-14 14:14] LABS: COVID-19 Test Negative (Negative); IDNOW Serial# 08D9AD1C
[2023-01-14 14:51] VITALS: BP 140/68; PULSE 80; RESP 16; TEMP 37.1; O2SAT 92
--- NOTE | 2023-01-14 15:39 | PC.NURSE ---
rt called for updraft
[2023-01-14 15:50] VITALS: PULSE 75; RESP 15; O2SAT 96; O2SAT 98
[2023-01-14 15:51] VITALS: BP 135/86; PULSE 81; RESP 18; TEMP 36.6; O2SAT 96
--- NOTE | 2023-01-14 15:54 | PC.NURSE ---
pt AOx3. resp admin updraft. william sample obtained and sent to lab. chacha. will cont to
[2023-01-14] MEDS: Doxycycline Monohydrate 100 MG CAPSULE PO (16:02)
[2023-01-14] MEDS: predniSONE 20 MG TABLET 60 MG PO (16:02)
--- NOTE | 2023-01-14 16:03 | PC.NURSE ---
medications given per order
[2023-01-14 16:55] LABS: CDiff Gene PCR NEGATIVE (Negative)
[2023-01-15 09:24] LABS: Campylobacter Not Detected (Not Detect.); E. coli EAEC Not Detected (Not Detect.); E. coli EPEC Not Detected (Not Detect.); E. coli ETEC Not Detected (Not Detect.); E. coli STEC Not Detected (Not Detect.); Plesiomonas shigelloides Not Detected (Not Detect.); Salmonella Not Detected (Not Detect.); Vibrio Not Detected (Not Detect.); Vibrio Cholerae Not Detected (Not Detect.); Yersinia enterocolitica Not Detected (Not Detect.)
[2023-01-15 09:25] LABS: Adenovirus F 40/41 Not Detected (Not Detect.); Astrovirus Not Detected (Not Detect.); Cryptosporidium Not Detected (Not Detect.); Cyclospora cayetanensis Not Detected (Not Detect.); Entamoeba histolytica Not Detected (Not Detect.); Giardia lamblia Not Detected (Not Detect.); Norovirus GI/GII Not Detected (Not Detect.); Rotavirus A Not Detected (Not Detect.); Sapovirus Not Detected (Not Detect.); Shigella sp./EIEC Not Detected (Not Detect.)
== END 2023-01-14 18:06 | disposition home or self-care (01) ==
PROVIDERS: Physician Assistant Medical; Emergency Provider Emergency Medicine
DX: J40 Bronchitis, not specified as acute or chronic (principal); R06.2 Wheezing; Z20.822 Contact with and (suspected) exposure to COVID-19; Z20.828 Contact with and (suspected) exposure to other viral communicable diseases; Z79.899 Other long term (current) drug therapy
CPT/HCPCS: 71046; 87493; 87507; 87635; 94640; 99284; 99285

== ENCOUNTER 2023-01-19 12:51 | Emergency (ER) | payer MEDICAID, SELFPAY ==
[2023-01-19 13:03] VITALS: BP 132/84; BP 135/73; PULSE 95; PULSE 97; RESP 18; TEMP 37; O2SAT 93; BMI 39.3
--- NOTE | 2023-01-19 14:07 | ED.PSYCH ---
HPI - Psych General Chief Complaint: Psychiatric Symptoms Stated Complaint: SI w/ plan per EMS Time Seen by Provider: 01/19/23 13:21 Source: patient and EMS Mode of arrival: EMS Limitations: no limitations History of Present Illness HPI Narrative: 52-year-old female presented via EMS for suicidal ideation with a plan of cutting her wrist with a knife, patient decline visual or auditory hallucination. Patient feels stressed because of the medical condition and the need of getting radiation. Related Data Home Medications Medication Instructions Recorded Confirmed capsaicin 0.025 % topical cream 1 appl topical QID PRN pain 07/02/22 12/31/22 benztropine 1 mg tablet 1 tab PO BID 07/23/22 12/31/22 cholecalciferol (vitamin D3) 25 1 tab PO DAILY 07/23/22 12/31/22 mcg (1,000 unit) tablet omeprazole 20 mg capsule,delayed 1 cap PO DAILY@0630 07/23/22 12/31/22 release oxcarbazepine 150 mg tablet 1 tab PO BID 07/23/22 12/31/22 sertraline 50 mg tablet 50 mg PO DAILY 07/23/22 12/31/22 valacyclovir 1 gram tablet 1 tab PO BID 07/23/22 12/31/22 lithium carbonate 600 mg capsule 1 cap PO BID 07/24/22 12/31/22 cyanocobalamin (vitamin B-12) 100 1 tab PO DAILY 08/06/22 12/31/22 mcg tablet nitroglycerin 0.4 mg sublingual 0.4 mg sublingual Q5M PRN Chest 08/06/22 12/31/22 tablet Pain olanzapine 10 mg tablet 1 tab PO BEDTIME 08/06/22 12/31/22 bupropion HCl 150 mg 24 hr tablet, 150 mg PO QAM 09/23/22 12/31/22 extended release clonidine HCl 0.1 mg tablet 0.2 mg PO BEDTIME 09/23/22 12/31/22 ropinirole 0.5 mg tablet 0.5 mg PO BEDTIME 09/23/22 12/31/22 tiotropium bromide 18 mcg capsule 1 cap inhalation DAILY 09/23/22 12/31/22 with inhalation device (Spiriva with HandiHaler) gabapentin 300 mg capsule 600 mg PO TID 11/29/22 12/31/22 Previous Rx's Medication Instructions Recorded albuterol sulfate 90 mcg/actuation 2 puff inhalation Q4-6H PRN 04/20/22 aerosol inhaler shortness of breath or wheezing 30 days #1 inhaler ferrous sulfate 324 mg (65 mg 324 mg PO DAILY 30 days #30 tabs 05/18/22 iron) tablet,delayed release dextromethorphan-guaifenesin 10 10 ml PO Q6H PRN Cough #237 mL 11/30/22 mg-100 mg/5 mL oral syrup prednisone 20 mg tablet 40 mg PO DAILY 5 days #10 tabs 12/26/22 albuterol sulfate 90 mcg/actuation 2 puff inhalation Q4-6H PRN 01/14/23 aerosol inhaler shortness of breath or wheezing #8.5 grams doxycycline hyclate 100 mg capsule 100 mg PO BID 7 days #14 caps 01/14/23 loperamide 2 mg capsule (Imodium 2 mg PO Q6H PRN loose stool #10 01/14/23 A-D) caps prednisone 20 mg tablet 60 mg PO DAILY 4 days #12 tabs 01/14/23 albuterol sulfate 90 mcg/actuation 2 puff inhalation Q4-6H PRN 01/15/23 aerosol inhaler shortness of breath or wheezing #8.5 grams doxycycline hyclate 100 mg capsule 100 mg PO BID 7 days #14 caps 01/15/23 loperamide 2 mg capsule (Imodium 2 mg PO Q6H PRN loose stool #10 01/15/23 A-D) caps prednisone 20 mg tablet 60 mg PO DAILY 4 days #12 tabs 01/15/23 Allergies Allergy/AdvReac Type Severity Reaction Status Date / Time ampicillin Allergy Rash Verified 12/26/22 10:32 seafood AdvReac Stomach Verified 12/26/22 10:32 Upset Review of Systems Review of Systems: All other systems are reviewed and are negative Constitutional: Reports as per HPI and Reports no additional constitutional complaints Eyes: Reports as per HPI and Reports no additional eye complaints Reports system reviewed and no additional complaints, except as documented Cardiovascular: Reports as per HPI and Reports no additional cardiovascular complaints Respiratory: Reports as per HPI and Reports no additional respiratory complaints Gastrointestinal: Reports as per HPI and Reports no additional gastrointestinal complaints Genitourinary: Reports no additional female genitourinary complaints Musculoskeletal: Reports no additional musculoskeletal complaints Skin/Breast: Reports system reviewed and no additional complaints, except as docu Psychiatric: Reports no additional psychiatric complaints Endocrine: Reports no additional endocrine complaints Hematologic/Lymphatic: Reports no additional hematologic/lymphatic complaints Allergic/Immunologic: Reports no additional allergic/immunologic complaints Reports system reviewed and no additional complaints, except as documented and Reports Abnormal speech present [facility] Past Medical History Medical History Asthma exacerbation in COPD Asthma-COPD overlap syndrome Bipolar disorder Bipolar I disorder Borderline personality disorder Chronic lung disease COPD (chronic obstructive pulmonary disease) Depression Drug abuse Herpes Intermittent explosive disorder Mass of parotid gland FABIOLA (obstructive sleep apnea) Post traumatic stress disorder (PTSD) Pseudoseizures Tobacco use Surgical History History of ankle surgery History of appendectomy History of back surgery Hx of cholecystectomy Family History Family History Mother COPD (chronic obstructive pulmonary disease) Social History Social History Household Members: None Household Members Other:: [facility] in [place] Housing: Apartment Housing Other:: Sleeps on the couch at [facility] house Do you presently have visiting nurse or other home services: Yes (twice a day) Unable to assess alcohol history related to: Unknown Alcohol intake: never Patient Tobacco Use Status: Current everyday Tobacco user Tobacco use type: Cigarette Cigarette Packs Per Day: 3 Cigarettes Per Day: 10 Years Smoked: 34 e-Cigarette/Vaping Use: Former Use Second Hand Smoke Exposure: No Substance Use Type: Crack/Cocaine Advance Directives: Yes Advance Directives on File: Yes Advance Directives Date on File: 06/17/22 service: No Current occupational status: unemployed and disabled Sexual orientation: Straight/Heterosexual Physical Exam Vital Signs: Vital Signs: Last Vital Signs Temp 98.2 F 01/19/23 15:52 Pulse 77 01/19/23 15:52 Resp 16 01/19/23 15:52 BP 125/74 01/19/23 15:52 Pulse Ox 97 01/19/23 15:52 O2 Del Method 01/19/23 15:52 BMI result Body Mass Index 39.3 Vital signs have been reviewed as appeared to be correct. Blood pressure normal. Heart rate normal. Respiration rate normal. Temperature normal. Oxygen saturation normal. Appearance: Alert. Oriented X3. No acute distress. Head: Normal external exam. Normocephalic. Atraumatic. No Garrett signs noted. No raccoon eyes noted Eyes: PERRLA. EOMI. Conjunctiva and sclera normal. Eyelids normal. ENT: TM's Normal. Pharynx normal. Uvula midline. Moist mucous membranes. No trismus noted. No drooling noted. No muffled voice noted. Neck: Normal inspection. Neck supple. FROM. No adenopathy. Thyroid Normal. No meningeal signs. No neck mass noted. CVS: Normal heart rate and rhythm. Heart sound normal. No murmurs noted. Pulses normal throughout. Respiratory: No respiratory distress. Painless inspiration. Breath sounds normal. No wheezes/rales/rhonchi noted. Chest nontender. No accessory muscle usage noted or decreased air movement noted. Abdomen: Soft and nontender. Bowel sounds normal in all 4 quadrants. No distention noted. No organomegaly noted. No visible injury noted. Back: No CVA tenderness. Full range of motion noted. Skin: Skin warm and dry. Normal skin color. Normal skin turgor. No rashes/lesions/lacerations noted. Extremities: No lower extremity edema. Extremities exhibit normal range of motion. Extremities nontender. Neuro: Oriented X 3. Cranial nerve exam: II-XII are grossly intact No motor deficit. No sensory deficit. Reflexes normal. Patient Orientation: Person, Place, Time and Situation, okay hygiene and grooming. Fair eye contact, attentive, no tics or tremors. Level of Consciousness: Awake, Appropriate and Alert Patient Behavior: Appropriate, Guarded, Cooperative and Anxious Mood Description: Constricted, Blunted and Apprehensive Affect Description: Constricted, Blunted and Apprehensive Patient Cognition Impaired: No Ability to Follow Directions: Excellent Speech Pattern: Clear, Appropriate and Spontaneous Speech, nonpressured, spontaneous with regular rate and rhythm, normal volume and prosody. No dysarthria. Memory Description: Intact, Immediate Intact and Short Term Intact Hallucinations: None Delusions: Not Present Thought Process: Intact Thought Content: positive for Intact, positive for Logical, Suicidal Ideation by cutting the breast but denies Homicidal Ideation. Depressive Symptoms: Not present. Judgement and Insight: Limited but adequate. Medical Decision Making Differential Diagnosis Differential Diagnoses: The differential diagnosis associated with the presentation includes (Acute psychosis, depression, SI, HI, electrolyte disturbance, acute renal insufficiency, anemia.) Lab Data 01/19/23 14:47 01/19/23 14:47 Labs: Lab Results 01/19/23 01/19/23 01/19/23 Range/Units 14:42 14:42 14:42 WBC (4.8-10.8) X10*3/uL RBC (4.20-5.50) X10*6/uL Hgb (12.0-16.0) g/dl Hct (37.0-47.0) % MCV (80.0-98.0) fL MCH (27.0-33.0) pg MCHC (31.0-35.0) g/dl RDW (11.0-16.0) % Plt Count (160-400) X10*3/uL MPV (9.4-12.3) fL Immature Gran % (Auto) (0.0-0.4) % Neut % (Auto) (45-73) % Lymph % (Auto) (20-40) % [place] % (Auto) (2-11) % Eos % (Auto) (0-4) % Baso % (Auto) (0-2) % Lymph # (Auto) (1.2-4.9) X10*3/uL [place] # (Auto) (0.1-1.2) X10*3/uL Eos # (Auto) (0.0-0.4) X10*3/uL Baso # (Auto) (0.0-0.2) X10*3/uL Abs Immat Gran (auto) (0.00-0.03) X10*3/uL Absolute Neuts (auto) (2.0-8.3) x10*3/uL Absolute Nucleated RBC (0.0-0.012) X10*3/uL Nucleated RBC % (auto) (0.0-0.2) /100WBC Sodium (135-145) mmol/L Potassium (3.3-5.1) mmol/L Chloride (96-108) mmol/L Carbon Dioxide (22-29) mmol/L Anion Gap (12-20) BUN (9-16) mg/dL Creatinine (0.5-1.4) mg/dL Estim Creat Clear Calc Estimated GFR Random Glucose (60-115) mg/dL Calcium (8.4-10.2) mg/dL Total Bilirubin (0.0-1.0) mg/dL AST (5-31) U/L ALT (0-31) U/L Alkaline Phosphatase (39-117) U/L Total Protein (6.5-8.0) g/dL Albumin (3.5-5.0) g/dL Urine Color Yellow Urine Appearance Clear Urine pH 6.0 (5.0-9.0) Ur Specific [place] 1.020 (1.005-1.025) Urine Protein Negative (Neg-Trace) mg/dL Urine Glucose (UA) Negative (Negative) mg/dL Urine Ketones Negative (Negative) mg/dL Urine Blood Negative (Negative) Urine Nitrite Negative (Negative) Ur Leukocyte Esterase Trace H (Negative) Urine RBC 0-2 (0-2) /HPF Urine WBC 0-5 (0-5) /HPF Ur Squamous Epith Cells 3-5 (0-2) /HPF Urine Bacteria None Seen (None Seen) Hyaline Casts 0-2 (0-2) /LPF Urine Test NEGATIVE (NEGATIVE) Salicylates (15-30) mg/dL Urine Opiates Screen (Not Detect) Urine Fentanyl Screen (Not Detect) Acetaminophen (<30) mcg/mL Ur Barbiturates Screen (Not Detect) Ur Phencyclidine Scrn (Not Detect) Ur Amphetamines Screen (Not Detect) U Benzodiazepines Scrn (Not Detect) Urine Cocaine Screen (Not Detect) U Marijuana (THC) Screen (Not Detect) Ethyl Alcohol mg/dL COVID-19 (ENDY) Negative (Negative) COVID-19 Clin Com See Note 01/19/23 01/19/23 01/19/23 Range/Units 14:42 14:47 14:47 WBC 14.2 H (4.8-10.8) X10*3/uL RBC 4.13 L (4.20-5.50) X10*6/uL Hgb 12.8 (12.0-16.0) g/dl Hct 40.5 (37.0-47.0) % MCV 98.1 H (80.0-98.0) fL MCH 31.0 (27.0-33.0) pg MCHC 31.6 (31.0-35.0) g/dl RDW 16.0 (11.0-16.0) % Plt Count 335 (160-400) X10*3/uL MPV 9.3 L (9.4-12.3) fL Immature Gran % (Auto) 0.6 H (0.0-0.4) % Neut % (Auto) 69.2 (45-73) % Lymph % (Auto) 22.8 (20-40) % [place] % (Auto) 6.3 (2-11) % Eos % (Auto) 0.5 (0-4) % Baso % (Auto) 0.6 (0-2) % Lymph # (Auto) 3.2 (1.2-4.9) X10*3/uL [place] # (Auto) 0.9 (0.1-1.2) X10*3/uL Eos # (Auto) 0.1 (0.0-0.4) X10*3/uL Baso # (Auto) 0.1 (0.0-0.2) X10*3/uL Abs Immat Gran (auto) 0.08 H (0.00-0.03) X10*3/uL Absolute Neuts (auto) 9.8 H (2.0-8.3) x10*3/uL Absolute Nucleated RBC 0.000 (0.0-0.012) X10*3/uL Nucleated RBC % (auto) 0.0 (0.0-0.2) /100WBC Sodium 142 (135-145) mmol/L Potassium 4.5 (3.3-5.1) mmol/L Chloride 103 (96-108) mmol/L Carbon Dioxide 33 H (22-29) mmol/L Anion Gap 11 L (12-20) BUN 22 H (9-16) mg/dL Creatinine 0.72 (0.5-1.4) mg/dL Estim Creat Clear Calc 112.1 Estimated GFR > 60 Random Glucose 80 (60-115) mg/dL Calcium 10.3 H (8.4-10.2) mg/dL Total Bilirubin 0.2 (0.0-1.0) mg/dL AST 10 (5-31) U/L ALT 14 (0-31) U/L Alkaline Phosphatase 64 (39-117) U/L Total Protein 6.7 (6.5-8.0) g/dL Albumin 4.4 (3.5-5.0) g/dL Urine Color Urine Appearance Urine pH (5.0-9.0) Ur Specific [place] (1.005-1.025) Urine Protein (Neg-Trace) mg/dL Urine Glucose (UA) (Negative) mg/dL Urine Ketones (Negative) mg/dL Urine Blood (Negative) Urine Nitrite (Negative) Ur Leukocyte Esterase (Negative) Urine RBC (0-2) /HPF Urine WBC (0-5) /HPF Ur Squamous Epith Cells (0-2) /HPF Urine Bacteria (None Seen) Hyaline Casts (0-2) /LPF Urine Test (NEGATIVE) Salicylates < 5.0 L (15-30) mg/dL Urine Opiates Screen Not Detected (Not Detect) Urine Fentanyl Screen Not Detected (Not Detect) Acetaminophen < 17 (<30) mcg/mL Ur Barbiturates Screen Not Detected (Not Detect) Ur Phencyclidine Scrn Not Detected (Not Detect) Ur Amphetamines Screen Not Detected (Not Detect) U Benzodiazepines Scrn Not Detected (Not Detect) Urine Cocaine Screen Not Detected (Not Detect) U Marijuana (THC) Screen Not Detected (Not Detect) Ethyl Alcohol < 10 mg/dL COVID-19 (ENDY) (Negative) COVID-19 Clin Com Discharge Plan Discharge Clinical Impression: Chronic schizophrenia, Suicidal ideation, Depression, Acute anxiety Patient Disposition: Still a Patient Prescriptions: No Action albuterol sulfate 90 mcg/actuation HFA aerosol inhaler 2 puff inhalation Q4-6H PRN (Reason: shortness of breath or wheezing) 30 Days Qty: 1 0RF ferrous sulfate 324 mg (65 mg iron) tablet,delayed release (DR/EC) 324 mg PO DAILY 30 Days Qty: 30 0RF capsaicin 0.025 % cream 1 appl topical QID PRN (Reason: pain) oxcarbazepine 150 mg tablet 1 tab PO BID valacyclovir 1 gram tablet 1 tab PO BID benztropine 1 mg tablet 1 tab PO BID omeprazole 20 mg capsule,delayed release(DR/EC) 1 cap PO DAILY@0630 sertraline 50 mg tablet 50 mg PO DAILY cholecalciferol (vitamin D3) 25 mcg (1,000 unit) tablet 1 tab PO DAILY lithium carbonate 600 mg capsule 1 cap PO BID nitroglycerin 0.4 mg tablet, sublingual 0.4 mg sublingual Q5M PRN (Reason: Chest Pain) cyanocobalamin (vitamin B-12) 100 mcg tablet 1 tab PO DAILY olanzapine 10 mg tablet 1 tab PO BEDTIME Spiriva with HandiHaler 18 mcg capsule, w/inhalation device 1 cap inhalation DAILY ropinirole 0.5 mg Tablet 0.5 mg PO BEDTIME Rx Instructions: administer 1-3 hours before bedtime clonidine HCl 0.1 mg Tablet 0.2 mg PO BEDTIME bupropion HCl 150 mg Tablet Extended Release 24 Hr 150 mg PO QAM gabapentin 300 mg Capsule 600 mg PO TID dextromethorphan-guaifenesin 10-100 mg/5 mL Syrup 10 ml PO Q6H PRN (Reason: Cough) Qty: 237 0RF prednisone 20 mg tablet 40 mg PO DAILY 5 Days Qty: 10 0RF doxycycline hyclate 100 mg capsule 100 mg PO BID 7 Days Qty: 14 0RF albuterol sulfate 90 mcg/actuation HFA aerosol inhaler 2 puff inhalation Q4-6H PRN (Reason: shortness of breath or wheezing) Qty: 8.5 0RF prednisone 20 mg tablet 60 mg PO DAILY 4 Days Qty: 12 0RF loperamide [Imodium A-D] 2 mg capsule 2 mg PO Q6H PRN (Reason: loose stool) Qty: 10 0RF Rx Instructions: administer after each loose stool until symptoms controlled; do not exceed 8 mg per 24 hrs albuterol sulfate 90 mcg/actuation HFA aerosol inhaler 2 puff inhalation Q4-6H PRN (Reason: shortness of breath or wheezing) Qty: 8.5 0RF loperamide [Imodium A-D] 2 mg capsule 2 mg PO Q6H PRN (Reason: loose stool) Qty: 10 0RF Rx Instructions: administer after each loose stool until symptoms controlled; do not exceed 8 mg per 24 hrs prednisone 20 mg tablet 60 mg PO DAILY 4 Days Qty: 12 0RF doxycycline hyclate 100 mg capsule 100 mg PO BID 7 Days Qty: 14 0RF
[2023-01-19 14:27] VITALS: BP 123/65; PULSE 84; RESP 12; O2SAT 95
[2023-01-19 14:52] LABS: MANUAL DIFF FLAG NO
[2023-01-19 14:54] LABS: Basophils Absolute Auto 0.1 X10*3/uL (0.0-0.2); Basophils Percent Auto 0.6 % (0-2); Eosinophils Absolute Auto 0.1 X10*3/uL (0.0-0.4); Eosinophils Percent Auto 0.5 % (0-4); Hematocrit 40.5 % (37.0-47.0); Hemoglobin 12.8 g/dl (12.0-16.0); Imm Gran Abs Auto 0.08 X10*3/uL (0.00-0.03); Imm Gran Pct Auto 0.6 % (0.0-0.4); Lymphocytes Absolute Auto 3.2 X10*3/uL (1.2-4.9); Lymphocytes Percent Auto 22.8 % (20-40); Mean Corpuscular HGB Conc 31.6 g/dl (31.0-35.0); Mean Corpuscular Volume 98.1 fL (80.0-98.0); Mean Platelet Volume 9.3 fL (9.4-12.3); Monocytes Absolute Auto 0.9 X10*3/uL (0.1-1.2); Monocytes Percent Auto 6.3 % (2-11); Neutrophils Absolute Auto 9.8 x10*3/uL (2.0-8.3); Neutrophils Percent Auto 69.2 % (45-73); Platelet Count 335 X10*3/uL (160-400); Red Blood Count 4.13 X10*6/uL (4.20-5.50); White Blood Count 14.2 X10*3/uL (4.8-10.8)
[2023-01-19 14:59] LABS: Appearance Urine Clear; Color Urine Yellow; Glucose Urine UA Negative (Negative); Leukocyte Esterase Urine Trace (Negative); Nitrite Urine Negative (Negative); UMIC TRIGGER UA YES; Urine Blood Negative (Negative); Urine Ketones Negative (Negative); Urine Protein Negative (Neg-Trace)
[2023-01-19 15:00] LABS: UPreg QC Valid YES; Urine Pregnancy NEGATIVE (NEGATIVE)
[2023-01-19 15:04] LABS: Bacteria Urine None Seen (None Seen); Hyaline Casts Urine 0-2 /LPF (0-2); RBC Urine 0-2 /HPF (0-2); WBC Urine 0-5 /HPF (0-5)
[2023-01-19 15:07] LABS: Amphetamine Screen Urine Not Detected (Not Detect); Barbiturates, Urine Not Detected (Not Detect); Benzodiazepines Screen Urine Not Detected (Not Detect); COVID-19 Test Negative (Negative); Cannabinoid Screen Urine Not Detected (Not Detect); Cocaine Screen Urine Not Detected (Not Detect); Fentanyl, urine Not Detected (Not Detect); IDNOW Serial# 9DB6401D; Opiate Screen Urine Not Detected (Not Detect); Phencyclidine Screen Urine Not Detected (Not Detect)
[2023-01-19 15:21] LABS: Acetaminophen LAB < 17 mcg/mL (<30); Alanine Aminotransferase 14 U/L (0-31); Albumin Level 4.4 g/dL (3.5-5.0); Alkaline Phosphatase 64 U/L (39-117); Anion Gap 11 (12-20); Aspartate Amino Transferase 10 U/L (5-31); Bilirubin Total 0.2 mg/dL (0.0-1.0); Blood Urea Nitrogen 22 mg/dL (9-16); Calcium 10.3 mg/dL (8.4-10.2); Carbon Dioxide 33 mmol/L (22-29); Chloride 103 mmol/L (96-108); Creatinine Clr Calc Pharmacy 112.1; Estimated Glomerular Filt Rate > 60; Ethanol < 10 mg/dL; Glucose Random 80 mg/dL (60-115); Potassium 4.5 mmol/L (3.3-5.1); Salicylate < 5.0 mg/dL (15-30); Sodium 142 mmol/L (135-145); Total Protein 6.7 g/dL (6.5-8.0)
[2023-01-19 15:52] VITALS: BP 125/74; PULSE 77; RESP 16; TEMP 36.8; O2SAT 97
[2023-01-19 18:00] VITALS: BP 120/67; PULSE 81; RESP 16; TEMP 36.7; O2SAT 97
--- NOTE | 2023-01-19 18:37 | MHC.CARE ---
CARE Team met with Bhavana. She denied SI plan or intent. She reported that she was stressed with cancer treatment and being unable to see providers because cancer treatment is a lot. She was observed to be in good spirits and appropriate. At this time d/c is appropriate.
--- NOTE | 2023-01-19 19:10 | MHC.CARE ---
Prior to pt meeting with the CARE Team, t/w was walking past pt's room. Pt was laughing and smiling with ED staff, and indicated to t/w that she was feeling better and wanted to be discharged.
--- NOTE | 2023-01-19 19:30 | MHC.CARE ---
CARE Team was consulted due to SI with plan. Pt is very well known to the CARE Team, but has been making significant progress in recent months after establishing housing for the first time in many years. Pt is negative for cocaine today and has reported decreased use since becoming housed. Pt noted that stressor which precipitated presentation to the ED was anxiety about upcoming radiation treatment for her cancer. Pt has reported to the CARE Team over the past months that she has been battling cancer, and had a sizeale mass removed from her neck. Pt has a long history of inpatient hospitalization secondary to suicidal ideation. Pt does not have a significant history of suicide attempts/gestures. Pt has outpatient supports, including but not limited to [facility]. Pt identifies that after being in the ED for a period of time, which is a familiar setting for her where she is known to many of the staff, she is feeling better and suicidal thoughts have resolved. Pt denies SI at this time and identifies that she can be safe at home. CARE Team discusses this intervention with LASHNODA Bob, who agrees that pt appears to be doing well and is in good spirits and can return to the community.?
[2023-01-19 19:51] VITALS: BP 142/74; PULSE 83; RESP 16; TEMP 36.9; O2SAT 95
--- NOTE | 2023-01-19 20:02 | PC.NURSE ---
Discharge instructions reviewed with pt. Pt verbalizes understanding. Ride set up with the care team.
== END 2023-01-19 20:03 | disposition home or self-care (01) ==
PROVIDERS: Physician Assistant Medical; Emergency Provider Emergency Medicine
DX: F20.9 Schizophrenia, unspecified (principal); R45.851 Suicidal ideations; F32.A Depression, unspecified; F41.9 Anxiety disorder, unspecified; F17.210 Nicotine dependence, cigarettes, uncomplicated; Z20.822 Contact with and (suspected) exposure to COVID-19; D49.0 Neoplasm of unspecified behavior of digestive system; Z79.899 Other long term (current) drug therapy
CPT/HCPCS: 36415; 80053; 80143; 80179; 80307; 81001; 81025; 82077; 85025; 87635; 99285

== ENCOUNTER 2023-01-27 14:21 | Emergency (ER) | payer OTHER, MEDICAID, SELFPAY ==
[2023-01-27 14:30] VITALS: BP 150/90; PULSE 91; O2SAT 97
--- NOTE | 2023-01-27 14:32 | ED.GENADULT ---
HPI - General Adult General Chief complaint: Psychiatric Symptoms <LASHONDA Leary - Last Filed: 01/27/23 17:51> Stated complaint: DEPRESSED,SI [facility], [facility] <LASHONDA Leary - Last Filed: 01/27/23 17:51> Time Seen by Provider: 01/27/23 14:32 <LASHONDA Leary - Last Filed: 01/27/23 17:51> Source: patient and EMS <LASHONDA Leary - Last Filed: 01/27/23 17:51> Mode of arrival: EMS <LASHONDA Leary - Last Filed: 01/27/23 17:51> Limitations: no limitations <LASHONDA Leary Last Filed: 01/27/23 17:51> History of Present Illness HPI narrative: Patient is a 53 year old assigned female at with a history of BPD presenting to the emergency department today with depression. Patient states that she is feeling more depressed lately, was suicidal earlier and is now no longer suicidal. Patient denies any dizziness, lightheadedness, abdominal pain, nausea, vomiting, fever, chills, blurry vision, double vision, loss of vision, chest pain, difficulty breathing, shortness of breath, back pain, night sweats, pain with urination, increased urinary frequency, increased urinary urgency, blood in her urine or stool, syncope or a near syncopal episode, recent trauma or falls, bowel incontinence, bladder incontinence, bowel retention, bladder retention, or any other complaints at this time. <LASHONDA Leary - Last Filed: 01/27/23 17:51> Relieving factors: none <LASHONDA Leary Last Filed: 01/27/23 17:51> Exacerbating factors: none <LASHONDA Leary - Last Filed: 01/27/23 17:51> Associated symptoms: denies other symptoms <LASHONDA Leary Last Filed: 01/27/23 17:51> Treatments prior to arrival: none <LASHONDA Leary - Last Filed: 01/27/23 17:51> Related Data Home medications: Home Medications Medication Instructions Recorded Confirmed capsaicin 0.025 % topical cream 1 appl topical QID PRN pain 07/02/22 01/27/23 benztropine 1 mg tablet 1 tab PO BID 07/23/22 01/27/23 cholecalciferol (vitamin D3) 25 1 tab PO DAILY 07/23/22 01/27/23 mcg (1,000 unit) tablet omeprazole 20 mg capsule,delayed 1 cap PO DAILY@0630 07/23/22 01/27/23 release oxcarbazepine 150 mg tablet 1 tab PO BID 07/23/22 01/27/23 sertraline 50 mg tablet 50 mg PO DAILY 07/23/22 01/27/23 valacyclovir 1 gram tablet 1 tab PO BID 07/23/22 01/27/23 lithium carbonate 600 mg capsule 1 cap PO BID 07/24/22 01/27/23 cyanocobalamin (vitamin B-12) 100 1 tab PO DAILY 08/06/22 01/27/23 mcg tablet nitroglycerin 0.4 mg sublingual 0.4 mg sublingual Q5M PRN Chest 08/06/22 01/27/23 tablet Pain olanzapine 10 mg tablet 1 tab PO BEDTIME 08/06/22 01/27/23 bupropion HCl 150 mg 24 hr tablet, 150 mg PO QAM 09/23/22 01/27/23 extended release clonidine HCl 0.1 mg tablet 0.2 mg PO BEDTIME 09/23/22 01/27/23 ropinirole 0.5 mg tablet 0.5 mg PO BEDTIME 09/23/22 01/27/23 tiotropium bromide 18 mcg capsule 1 cap inhalation DAILY 09/23/22 01/27/23 with inhalation device (Spiriva with HandiHaler) gabapentin 300 mg capsule 600 mg PO TID 11/29/22 01/27/23 Previous Rx's Medication Instructions Recorded albuterol sulfate 90 mcg/actuation 2 puff inhalation Q4-6H PRN 04/20/22 aerosol inhaler shortness of breath or wheezing 30 days #1 inhaler ferrous sulfate 324 mg (65 mg 324 mg PO DAILY 30 days #30 tabs 05/18/22 iron) tablet,delayed release dextromethorphan-guaifenesin 10 10 ml PO Q6H PRN Cough #237 mL 11/30/22 mg-100 mg/5 mL oral syrup <LASHONDA Leary - Last Filed: 01/27/23 17:51> Allergies/adverse reactions: Allergies Allergy/AdvReac Type Severity Reaction Status Date / Time ampicillin Allergy Rash Verified 12/26/22 10:32 seafood AdvReac Stomach Verified 12/26/22 10:32 Upset <LASHONDA Leary - Last Filed: 01/27/23 17:51> Review of Systems Constitutional: Constitutional: Reports no additional constitutional complaints, Denies chills, Denies fever(s) and Denies night sweats <LASHONDA Leary - Last Filed: 01/27/23 17:51> Eyes: Eyes: Reports no additional eye complaints, Denies blurry vision, Denies change in vision, Denies diplopia, Denies eye discharge, Denies loss of vision and Denies eye pain <LASHONDA Leary - Last Filed: 01/27/23 17:51> ENT: Denies dizziness <LASHONDA Leary - Last Filed: 01/27/23 17:51> Cardiovascular: Cardiovascular: Reports no additional cardiovascular complaints, Denies chest pain, Denies lightheadedness, Denies Loss of Consciousness and Denies dyspnea <LASHONDA Leary - Last Filed: 01/27/23 17:51> Respiratory: Respiratory: Reports no additional respiratory complaints and Denies dyspnea <LASHONDA Leary - Last Filed: 01/27/23 17:51> Gastrointestinal: Gastrointestinal: Reports no additional gastrointestinal complaints, Denies abdominal pain, Denies melena, Denies hematochezia, Denies change in bowel habits and Denies change in stool character <LASHONDA Leary - Last Filed: 01/27/23 17:51> Genitourinary: Genitourinary: Denies hematuria, Denies urinary frequency, Denies dysuria, Denies urinary incontinence, Denies urinary hesitancy and Denies urinary urgency <LASHONDA Leary - Last Filed: 01/27/23 17:51> Musculoskeletal: Musculoskeletal: Reports no additional musculoskeletal complaints, Denies numbness and Denies tingling <LASHONDA Leary - Last Filed: 01/27/23 17:51> Neurologic: Denies dizziness, Denies loss of vision, Denies numbness and Denies tingling <LASHONDA Leary - Last Filed: 01/27/23 17:51> Psychiatric: Psychiatric: Reports no additional psychiatric complaints and Reports depression <LASHONDA Leary - Last Filed: 01/27/23 17:51> Endocrine: Endocrine: Reports no additional endocrine complaints <LASHONDA Leary - Last Filed: 01/27/23 17:51> Hematologic/Lymphatic: Hematologic/Lymphatic: Reports no additional hematologic/lymphatic complaints <LASHONDA Leary - Last Filed: 01/27/23 17:51> Allergic/Immunologic: Allergic/Immunologic: Reports no additional allergic/immunologic complaints <LASHONDA Leary - Last Filed: 01/27/23 17:51> [facility] Past Medical History Attestation statement: The following information was validated with the patient. <LASHONDA Leary - Last Filed: 01/27/23 17:51> Source: old records reviewed and nursing notes reviewed <LASHONDA Leary - Last Filed: 01/27/23 17:51> Medical History: Medical History Asthma exacerbation in COPD Asthma-COPD overlap syndrome Bipolar disorder Bipolar I disorder Borderline personality disorder Chronic lung disease COPD (chronic obstructive pulmonary disease) Depression Drug abuse Herpes Intermittent explosive disorder Mass of parotid gland FABIOLA (obstructive sleep apnea) Post traumatic stress disorder (PTSD) Pseudoseizures Tobacco use <LASHONDA Leary - Last Filed: 01/27/23 17:51> Surgical History: Surgical History History of ankle surgery History of appendectomy History of back surgery Hx of cholecystectomy <LASHONDA Leary - Last Filed: 01/27/23 17:51> Family History Family History: Family History Mother COPD (chronic obstructive pulmonary disease) <LASHONDA Leary - Last Filed: 01/27/23 17:51> Social History Social History: Social History Household Members: None Household Members Other:: [facility] [place] Housing: Apartment Housing Other:: Sleeps on the couch at [facility] house Do you presently have visiting nurse or other home services: Yes (twice a day) Unable to assess alcohol history related to: Unknown Alcohol intake: never Patient Tobacco Use Status: Current everyday Tobacco user Tobacco use type: Cigarette Cigarette Packs Per Day: 3 Cigarettes Per Day: 10 Years Smoked: 34 e-Cigarette/Vaping Use: Former Use Second Hand Smoke Exposure: No Substance Use Type: Crack/Cocaine Advance Directives: Yes Advance Directives on File: Yes Advance Directives Date on File: 06/17/22 service: No Current occupational status: unemployed and disabled Sexual orientation: Straight/Heterosexual <LASHONDA Leary - Last Filed: 01/27/23 17:51> Physical Exam ED Vital Signs: Vital Signs - 24 hr 01/27/23 14:39 Temperature 98.2 F Pulse Rate 85 Respiratory Rate 19 Blood Pressure 144/70 H Pulse Oximetry 94 Oxygen Delivery Method Room Air BMI result Body Mass Index 33.3 <LASHONDA Leary - Last Filed: 01/27/23 17:51> Vital Signs - 24 hr 01/27/23 14:39 Temperature 98.2 F Pulse Rate 85 Respiratory Rate 19 Blood Pressure 144/70 H Pulse Oximetry 94 Oxygen Delivery Method Room Air BMI result Body Mass Index 33.3 <Oswaldo Hollis MD - Last Filed: 01/27/23 22:15> Const General: cooperative, no acute distress, alert and awake <LASHONDA Leary - Last Filed: 01/27/23 17:51> Nutritional Appearance: well nourished <LASHONDA Leary - Last Filed: 01/27/23 17:51> Orientation/consciousness: patient oriented x3 <LASHONDA Leary - Last Filed: 01/27/23 17:51> Limitations: no limitations <LASHONDA Leary - Last Filed: 01/27/23 17:51> HENMT Head: Yes normal to inspection and Yes atraumatic <LASHONDA Leary - Last Filed: 01/27/23 17:51> Ears: hearing grossly normal bilaterally and external ears normal <LASHONDA Leary - Last Filed: 01/27/23 17:51> General nose exam: Normal external nose present, no nasal discharge noted and no epistaxis <LASHONDA Leary - Last Filed: 01/27/23 17:51> Face and sinus: Yes normal facial exam, No abrasion and No laceration <LASHONDA Leary - Last Filed: 01/27/23 17:51> Mouth: Normal oral and palatal mucosa present, no drooling and no muffled voice <Dariana Cardenaskishor HI - Last Filed: 01/27/23 17:51> Eyes General: appearance normal, both eyes and all related structures <Dariana Haq HI - Last Filed: 01/27/23 17:51> Periorbital: periorbital findings normal <Dariana Cardenaskishor HI - Last Filed: 01/27/23 17:51> Eyelids: Yes eyelids normal <Dariana Cardenaskishor HI - Last Filed: 01/27/23 17:51> Conjunctivae: conjunctivae normal <Dariana Cardenaskishor HI - Last Filed: 01/27/23 17:51> Pupils: Equal, round and reactive pupils present <Dariana CardenasLASHONDA iverson - Last Filed: 01/27/23 17:51> EOM: EOMs intact bilaterally <Dariana Cardenaskishor HI - Last Filed: 01/27/23 17:51> Neck Neck: Yes normal visual inspection, Yes full ROM and Yes no lymphadenopathy <Dariana Cardenaskishor HI - Last Filed: 01/27/23 17:51> Chest Chest palpation & inspection: normal inspection of the chest <Darianacarole Cardenaskishor HI - Last Filed: 01/27/23 17:51> Resp Effort & Inspection: normal respiratory effort and able to speak in complete sentences <Dariana Cardenaskishor HI - Last Filed: 01/27/23 17:51> Auscultation: clear to auscultation bilaterally <Darianacarole CardenasLASHONDA iverson - Last Filed: 01/27/23 17:51> Cardio Rate: regular rate <Dariana Cardenaskishor HI - Last Filed: 01/27/23 17:51> Rhythm: regular rhythm <Dariana Cardenaskishor HI - Last Filed: 01/27/23 17:51> GI Inspection: Yes normal to inspection <Dariana LASHONDA Haq - Last Filed: 01/27/23 17:51> Palpation (GI): Soft to palpation, not firm, nontender and no guarding <Dariana CardenasLASHONDA iverson - Last Filed: 01/27/23 17:51> Neuro General: patient oriented x3 and moves all extremities <LASHONDA Leary - Last Filed: 01/27/23 17:51> Cranial nerves: Yes Equal, round and reactive pupils present <LASHONDA Leary - Last Filed: 01/27/23 17:51> Cognition (Neuro): normal cognition <LASHONDA Leary - Last Filed: 01/27/23 17:51> Motor exam (neuro): 5/5 motor strength present throughout <LAHSONDA Leary - Last Filed: 01/27/23 17:51> Sensory Exam: Normal double simultaneous stimulation for sensation <LASHONDA Leary - Last Filed: 01/27/23 17:51> Coordination: [id number] test normal <LASHONDA Leary - Last Filed: 01/27/23 17:51> Extrem General: Yes normal to inspection, Yes full ROM and Yes capillary refill normal <LASHONDA Leary - Last Filed: 01/27/23 17:51> Psych Appearance: grossly normal <LASHONDA Leary - Last Filed: 01/27/23 17:51> Mental Status: mental status grossly normal <LASHONDA Leary - Last Filed: 01/27/23 17:51> Affect: normal affect <LASHONDA Leary - Last Filed: 01/27/23 17:51> Attitude: cooperative <LASHONDA Leary - Last Filed: 01/27/23 17:51> Thought process: Normal thought process present <LASHONDA Leary - Last Filed: 01/27/23 17:51> Thought content: Normal thought content present <LASHONDA Leary - Last Filed: 01/27/23 17:51> Insight: Good insight present (Psych) <Dariana Haq PA - Last Filed: 01/27/23 17:51> Medications Administered Discontinued Medications Generic Name Dose Route Start Last Admin Trade Name Freq PRN Reason Stop Dose Admin Ibuprofen 800 mg 01/27/23 19:21 01/27/23 19:30 Ibuprofen 800 Mg Tablet PO 01/27/23 19:22 800 mg ONCE ONE Administration <LASHONDA Leary - Last Filed: 01/27/23 17:51> Medications Administered Discontinued Medications Generic Name Dose Route Start Last Admin Trade Name Freq PRN Reason Stop Dose Admin Ibuprofen 800 mg 01/27/23 19:21 01/27/23 19:30 Ibuprofen 800 Mg Tablet PO 01/27/23 19:22 800 mg ONCE ONE Administration <Oswaldo Hollis MD - Last Filed: 01/27/23 22:15> Medical Decision Making Medical Decision Making [facility] Narrative: Patient is a 53 year old assigned female at with a history of BPD presenting to the emergency department today with increased depression. Patient's physical exam was unremarkable. Patient's blood work was unremarkable. I explained my physical exam findings as well as all test results to the patient. I answered all questions asked by the patient. Patient is currently awaiting CARE team evaluation. <LASHONDA Leary - Last Filed: 01/27/23 17:51> Patient is a 53 year old assigned female at with a history of BPD presenting to the emergency department today with increased depression. Patient's physical exam was unremarkable. Patient's blood work was unremarkable. I explained my physical exam findings as well as all test results to the patient. I answered all questions asked by the patient. Patient is currently awaiting CARE team evaluation. 2212: The patient was seen by the care team. The patient has been seen here frequently and is well-known. The patient states that she is no longer suicidal and she does want to return to her home. The care team is going to arrange a ride home and the patient will be discharged. <Oswaldo Hollis MD - Last Filed: 01/27/23 22:15> Differential Diagnosis Differential Diagnoses: The differential diagnosis associated with the presentation includes <LASHONDA Leary - Last Filed: 01/27/23 17:51> depression <LASHONDA Leary - Last Filed: 01/27/23 17:51> Lab Data [facility] Lab Attestation statement: I reviewed the patient's lab results. <LASHONDA Leary - Last Filed: 01/27/23 17:51> Result Diagrams: 01/27/23 15:30 01/27/23 15:30 <LASHONDA Leary - Last Filed: 01/27/23 17:51> Labs: Lab Results 01/27/23 01/27/23 01/27/23 Range/Units 15:05 15:05 15:10 WBC (4.8-10.8) X10*3/uL RBC (4.20-5.50) X10*6/uL Hgb (12.0-16.0) g/dl Hct (37.0-47.0) % MCV (80.0-98.0) fL MCH (27.0-33.0) pg MCHC (31.0-35.0) g/dl RDW (11.0-16.0) % Plt Count (160-400) X10*3/uL MPV (9.4-12.3) fL Immature Gran % (Auto) (0.0-0.4) % Neut % (Auto) (45-73) % Lymph % (Auto) (20-40) % [place] % (Auto) (2-11) % Eos % (Auto) (0-4) % Baso % (Auto) (0-2) % Lymph # (Auto) (1.2-4.9) X10*3/uL [place] # (Auto) (0.1-1.2) X10*3/uL Eos # (Auto) (0.0-0.4) X10*3/uL Baso # (Auto) (0.0-0.2) X10*3/uL Abs Immat Gran (auto) (0.00-0.03) X10*3/uL Absolute Neuts (auto) (2.0-8.3) x10*3/uL Absolute Nucleated RBC (0.0-0.012) X10*3/uL Nucleated RBC % (auto) (0.0-0.2) /100WBC Sodium (135-145) mmol/L Potassium (3.3-5.1) mmol/L Chloride (96-108) mmol/L Carbon Dioxide (22-29) mmol/L Anion Gap (12-20) BUN (9-16) mg/dL Creatinine (0.5-1.4) mg/dL Estim Creat Clear Calc Estimated GFR Random Glucose (60-115) mg/dL Calcium (8.4-10.2) mg/dL Total Bilirubin (0.0-1.0) mg/dL AST (5-31) U/L ALT (0-31) U/L Alkaline Phosphatase (39-117) U/L Total Protein (6.5-8.0) g/dL Albumin (3.5-5.0) g/dL Urine Color Yellow Urine Appearance Cloudy Urine pH 5.5 (5.0-9.0) Ur Specific [place] 1.020 (1.005-1.025) Urine Protein Negative (Neg-Trace) mg/dL Urine Glucose (UA) Negative (Negative) mg/dL Urine Ketones Negative (Negative) mg/dL Urine Blood Negative (Negative) Urine Nitrite Negative (Negative) Ur Leukocyte Esterase Large (3+) H (Negative) Urine RBC 0-2 (0-2) /HPF Urine WBC 21-50 H (0-5) /HPF Ur Squamous Epith Cells 11-20 (0-2) /HPF Urine Bacteria Trace (None Seen) Hyaline Casts 0-2 (0-2) /LPF Salicylates (15-30) mg/dL Urine Opiates Screen Not Detected (Not Detect) Urine Fentanyl Screen Not Detected (Not Detect) Acetaminophen (<30) mcg/mL Ur Barbiturates Screen Not Detected (Not Detect) Ur Phencyclidine Scrn Not Detected (Not Detect) Ur Amphetamines Screen Not Detected (Not Detect) U Benzodiazepines Scrn Not Detected (Not Detect) Urine Cocaine Screen Not Detected (Not Detect) U Marijuana (THC) Screen Not Detected (Not Detect) Ethyl Alcohol mg/dL COVID-19 (ENDY) Negative (Negative) COVID-19 Clin Com See Note 01/27/23 01/27/23 Range/Units 15:30 15:30 WBC 8.1 (4.8-10.8) X10*3/uL RBC 4.00 L (4.20-5.50) X10*6/uL Hgb 12.8 (12.0-16.0) g/dl Hct 40.4 (37.0-47.0) % MCV 101.0 H (80.0-98.0) fL MCH 32.0 (27.0-33.0) pg MCHC 31.7 (31.0-35.0) g/dl RDW 14.3 (11.0-16.0) % Plt Count 277 (160-400) X10*3/uL MPV 9.7 (9.4-12.3) fL Immature Gran % (Auto) 0.4 (0.0-0.4) % Neut % (Auto) 62.0 (45-73) % Lymph % (Auto) 28.1 (20-40) % [place] % (Auto) 6.0 (2-11) % Eos % (Auto) 2.5 (0-4) % Baso % (Auto) 1.0 (0-2) % Lymph # (Auto) 2.3 (1.2-4.9) X10*3/uL [place] # (Auto) 0.5 (0.1-1.2) X10*3/uL Eos # (Auto) 0.2 (0.0-0.4) X10*3/uL Baso # (Auto) 0.1 (0.0-0.2) X10*3/uL Abs Immat Gran (auto) 0.03 (0.00-0.03) X10*3/uL Absolute Neuts (auto) 5.0 (2.0-8.3) x10*3/uL Absolute Nucleated RBC 0.000 (0.0-0.012) X10*3/uL Nucleated RBC % (auto) 0.0 (0.0-0.2) /100WBC Sodium 140 (135-145) mmol/L Potassium 4.7 (3.3-5.1) mmol/L Chloride 103 (96-108) mmol/L Carbon Dioxide 31 H (22-29) mmol/L Anion Gap 11 L (12-20) BUN 20 H (9-16) mg/dL Creatinine 0.76 (0.5-1.4) mg/dL Estim Creat Clear Calc 96.3 Estimated GFR > 60 Random Glucose 153 H (60-115) mg/dL Calcium 9.4 D (8.4-10.2) mg/dL Total Bilirubin 0.2 (0.0-1.0) mg/dL AST 16 (5-31) U/L ALT 21 (0-31) U/L Alkaline Phosphatase 73 (39-117) U/L Total Protein 6.1 L (6.5-8.0) g/dL Albumin 3.9 (3.5-5.0) g/dL Urine Color Urine Appearance Urine pH (5.0-9.0) Ur Specific [place] (1.005-1.025) Urine Protein (Neg-Trace) mg/dL Urine Glucose (UA) (Negative) mg/dL Urine Ketones (Negative) mg/dL Urine Blood (Negative) Urine Nitrite (Negative) Ur Leukocyte Esterase (Negative) Urine RBC (0-2) /HPF Urine WBC (0-5) /HPF Ur Squamous Epith Cells (0-2) /HPF Urine Bacteria (None Seen) Hyaline Casts (0-2) /LPF Salicylates < 5.0 L (15-30) mg/dL Urine Opiates Screen (Not Detect) Urine Fentanyl Screen (Not Detect) Acetaminophen < 17 (<30) mcg/mL Ur Barbiturates Screen (Not Detect) Ur Phencyclidine Scrn (Not Detect) Ur Amphetamines Screen (Not Detect) U Benzodiazepines Scrn (Not Detect) Urine Cocaine Screen (Not Detect) U Marijuana (THC) Screen (Not Detect) Ethyl Alcohol < 10 mg/dL COVID-19 (ENDY) (Negative) COVID-19 Clin Com <LASHONDA Leary - Last Filed: 01/27/23 17:51> Lab Results 01/27/23 01/27/23 01/27/23 Range/Units 15:05 15:05 15:10 WBC (4.8-10.8) X10*3/uL RBC (4.20-5.50) X10*6/uL Hgb (12.0-16.0) g/dl Hct (37.0-47.0) % MCV (80.0-98.0) fL MCH (27.0-33.0) pg MCHC (31.0-35.0) g/dl RDW (11.0-16.0) % Plt Count (160-400) X10*3/uL MPV (9.4-12.3) fL Immature Gran % (Auto) (0.0-0.4) % Neut % (Auto) (45-73) % Lymph % (Auto) (20-40) % [place] % (Auto) (2-11) % Eos % (Auto) (0-4) % Baso % (Auto) (0-2) % Lymph # (Auto) (1.2-4.9) X10*3/uL [place] # (Auto) (0.1-1.2) X10*3/uL Eos # (Auto) (0.0-0.4) X10*3/uL Baso # (Auto) (0.0-0.2) X10*3/uL Abs Immat Gran (auto) (0.00-0.03) X10*3/uL Absolute Neuts (auto) (2.0-8.3) x10*3/uL Absolute Nucleated RBC (0.0-0.012) X10*3/uL Nucleated RBC % (auto) (0.0-0.2) /100WBC Sodium (135-145) mmol/L Potassium (3.3-5.1) mmol/L Chloride (96-108) mmol/L Carbon Dioxide (22-29) mmol/L Anion Gap (12-20) BUN (9-16) mg/dL Creatinine (0.5-1.4) mg/dL Estim Creat Clear Calc Estimated GFR Random Glucose (60-115) mg/dL Calcium (8.4-10.2) mg/dL Total Bilirubin (0.0-1.0) mg/dL AST (5-31) U/L ALT (0-31) U/L Alkaline Phosphatase (39-117) U/L Total Protein (6.5-8.0) g/dL Albumin (3.5-5.0) g/dL Urine Color Yellow Urine Appearance Cloudy Urine pH 5.5 (5.0-9.0) Ur Specific [place] 1.020 (1.005-1.025) Urine Protein Negative (Neg-Trace) mg/dL Urine Glucose (UA) Negative (Negative) mg/dL Urine Ketones Negative (Negative) mg/dL Urine Blood Negative (Negative) Urine Nitrite Negative (Negative) Ur Leukocyte Esterase Large (3+) H (Negative) Urine RBC 0-2 (0-2) /HPF Urine WBC 21-50 H (0-5) /HPF Ur Squamous Epith Cells 11-20 (0-2) /HPF Urine Bacteria Trace (None Seen) Hyaline Casts 0-2 (0-2) /LPF Salicylates (15-30) mg/dL Urine Opiates Screen Not Detected (Not Detect) Urine Fentanyl Screen Not Detected (Not Detect) Acetaminophen (<30) mcg/mL Ur Barbiturates Screen Not Detected (Not Detect) Ur Phencyclidine Scrn Not Detected (Not Detect) Ur Amphetamines Screen Not Detected (Not Detect) U Benzodiazepines Scrn Not Detected (Not Detect) Urine Cocaine Screen Not Detected (Not Detect) U Marijuana (THC) Screen Not Detected (Not Detect) Ethyl Alcohol mg/dL COVID-19 (ENDY) Negative (Negative) COVID-19 Clin Com See Note 01/27/23 01/27/23 Range/Units 15:30 15:30 WBC 8.1 (4.8-10.8) X10*3/uL RBC 4.00 L (4.20-5.50) X10*6/uL Hgb 12.8 (12.0-16.0) g/dl Hct 40.4 (37.0-47.0) % MCV 101.0 H (80.0-98.0) fL MCH 32.0 (27.0-33.0) pg MCHC 31.7 (31.0-35.0) g/dl RDW 14.3 (11.0-16.0) % Plt Count 277 (160-400) X10*3/uL MPV 9.7 (9.4-12.3) fL Immature Gran % (Auto) 0.4 (0.0-0.4) % Neut % (Auto) 62.0 (45-73) % Lymph % (Auto) 28.1 (20-40) % [place] % (Auto) 6.0 (2-11) % Eos % (Auto) 2.5 (0-4) % Baso % (Auto) 1.0 (0-2) % Lymph # (Auto) 2.3 (1.2-4.9) X10*3/uL [place] # (Auto) 0.5 (0.1-1.2) X10*3/uL Eos # (Auto) 0.2 (0.0-0.4) X10*3/uL Baso # (Auto) 0.1 (0.0-0.2) X10*3/uL Abs Immat Gran (auto) 0.03 (0.00-0.03) X10*3/uL Absolute Neuts (auto) 5.0 (2.0-8.3) x10*3/uL Absolute Nucleated RBC 0.000 (0.0-0.012) X10*3/uL Nucleated RBC % (auto) 0.0 (0.0-0.2) /100WBC Sodium 140 (135-145) mmol/L Potassium 4.7 (3.3-5.1) mmol/L Chloride 103 (96-108) mmol/L Carbon Dioxide 31 H (22-29) mmol/L Anion Gap 11 L (12-20) BUN 20 H (9-16) mg/dL Creatinine 0.76 (0.5-1.4) mg/dL Estim Creat Clear Calc 96.3 Estimated GFR > 60 Random Glucose 153 H (60-115) mg/dL Calcium 9.4 D (8.4-10.2) mg/dL Total Bilirubin 0.2 (0.0-1.0) mg/dL AST 16 (5-31) U/L ALT 21 (0-31) U/L Alkaline Phosphatase 73 (39-117) U/L Total Protein 6.1 L (6.5-8.0) g/dL Albumin 3.9 (3.5-5.0) g/dL Urine Color Urine Appearance Urine pH (5.0-9.0) Ur Specific [place] (1.005-1.025) Urine Protein (Neg-Trace) mg/dL Urine Glucose (UA) (Negative) mg/dL Urine Ketones (Negative) mg/dL Urine Blood (Negative) Urine Nitrite (Negative) Ur Leukocyte Esterase (Negative) Urine RBC (0-2) /HPF Urine WBC (0-5) /HPF Ur Squamous Epith Cells (0-2) /HPF Urine Bacteria (None Seen) Hyaline Casts (0-2) /LPF Salicylates < 5.0 L (15-30) mg/dL Urine Opiates Screen (Not Detect) Urine Fentanyl Screen (Not Detect) Acetaminophen < 17 (<30) mcg/mL Ur Barbiturates Screen (Not Detect) Ur Phencyclidine Scrn (Not Detect) Ur Amphetamines Screen (Not Detect) U Benzodiazepines Scrn (Not Detect) Urine Cocaine Screen (Not Detect) U Marijuana (THC) Screen (Not Detect) Ethyl Alcohol < 10 mg/dL COVID-19 (ENDY) (Negative) COVID-19 Clin Com <Oswaldo Hollis MD - Last Filed: 01/27/23 22:15> Independent Historian Clinical information obtained from an independent historian. History obtained from or confirmed by: EMS <LASHONDA Leary - Last Filed: 01/27/23 17:51> Discharge Plan Discharge Clinical Impression: Depression <LASHONDA Leary - Last Filed: 01/27/23 17:51> Patient Disposition: Home, Self-Care <LASHONDA Leary - Last Filed: 01/27/23 17:51> Additional Instructions: Continue taking all your medications as prescribed by your providers. Follow the discharge instructions from the care team. Follow-up with your doctor in 2 days. Please return to the emergency department if your symptoms get worse or if you develop any symptoms that are concerning to you. <LASHONDA Leary - Last Filed: 01/27/23 17:51> Prescriptions: No Action albuterol sulfate 90 mcg/actuation HFA aerosol inhaler 2 puff inhalation Q4-6H PRN (Reason: shortness of breath or wheezing) 30 Days Qty: 1 0RF ferrous sulfate 324 mg (65 mg iron) tablet,delayed release (DR/EC) 324 mg PO DAILY 30 Days Qty: 30 0RF capsaicin 0.025 % cream 1 appl topical QID PRN (Reason: pain) oxcarbazepine 150 mg tablet 1 tab PO BID valacyclovir 1 gram tablet 1 tab PO BID benztropine 1 mg tablet 1 tab PO BID omeprazole 20 mg capsule,delayed release(DR/EC) 1 cap PO DAILY@0630 sertraline 50 mg tablet 50 mg PO DAILY cholecalciferol (vitamin D3) 25 mcg (1,000 unit) tablet 1 tab PO DAILY lithium carbonate 600 mg capsule 1 cap PO BID nitroglycerin 0.4 mg tablet, sublingual 0.4 mg sublingual Q5M PRN (Reason: Chest Pain) cyanocobalamin (vitamin B-12) 100 mcg tablet 1 tab PO DAILY olanzapine 10 mg tablet 1 tab PO BEDTIME Spiriva with HandiHaler 18 mcg capsule, w/inhalation device 1 cap inhalation DAILY ropinirole 0.5 mg Tablet 0.5 mg PO BEDTIME Rx Instructions: administer 1-3 hours before bedtime clonidine HCl 0.1 mg Tablet 0.2 mg PO BEDTIME bupropion HCl 150 mg Tablet Extended Release 24 Hr 150 mg PO QAM gabapentin 300 mg Capsule 600 mg PO TID dextromethorphan-guaifenesin 10-100 mg/5 mL Syrup 10 ml PO Q6H PRN (Reason: Cough) Qty: 237 0RF <LASHONDA Leary - Last Filed: 01/27/23 17:51> Interventions: [place]-Suicide Risk Severity Scale Last Done: 01/27/23 15:40 <LASHONDA Leary - Last Filed: 01/27/23 17:51>
[2023-01-27 14:39] VITALS: BP 144/70; PULSE 85; RESP 19; TEMP 36.8; O2SAT 94; BMI 33.3
[2023-01-27 15:29] LABS: Appearance Urine Cloudy; Color Urine Yellow; Glucose Urine UA Negative (Negative); Leukocyte Esterase Urine Large (3+) (Negative); Nitrite Urine Negative (Negative); PH 5.5 (5.0-9.0); UMIC TRIGGER UA YES; Urine Blood Negative (Negative); Urine Ketones Negative (Negative); Urine Protein Negative (Neg-Trace)
[2023-01-27 15:33] LABS: COVID-19 Test Negative (Negative); IDNOW Serial# 08D9AD1C
[2023-01-27 15:34] LABS: Amphetamine Screen Urine Not Detected (Not Detect); Bacteria Urine Trace (None Seen); Barbiturates, Urine Not Detected (Not Detect); Benzodiazepines Screen Urine Not Detected (Not Detect); Cannabinoid Screen Urine Not Detected (Not Detect); Cocaine Screen Urine Not Detected (Not Detect); Fentanyl, urine Not Detected (Not Detect); Hyaline Casts Urine 0-2 /LPF (0-2); Opiate Screen Urine Not Detected (Not Detect); Phencyclidine Screen Urine Not Detected (Not Detect); RBC Urine 0-2 /HPF (0-2); WBC Urine 21-50 /HPF (0-5)
[2023-01-27 15:35] LABS: MANUAL DIFF FLAG NO
[2023-01-27 15:36] LABS: Basophils Absolute Auto 0.1 X10*3/uL (0.0-0.2); Eosinophils Absolute Auto 0.2 X10*3/uL (0.0-0.4); Eosinophils Percent Auto 2.5 % (0-4); Hematocrit 40.4 % (37.0-47.0); Hemoglobin 12.8 g/dl (12.0-16.0); Imm Gran Abs Auto 0.03 X10*3/uL (0.00-0.03); Imm Gran Pct Auto 0.4 % (0.0-0.4); Lymphocytes Absolute Auto 2.3 X10*3/uL (1.2-4.9); Lymphocytes Percent Auto 28.1 % (20-40); Mean Corpuscular HGB Conc 31.7 g/dl (31.0-35.0); Mean Platelet Volume 9.7 fL (9.4-12.3); Monocytes Absolute Auto 0.5 X10*3/uL (0.1-1.2); Platelet Count 277 X10*3/uL (160-400); Red Cell Distribution Width 14.3 % (11.0-16.0); White Blood Count 8.1 X10*3/uL (4.8-10.8)
[2023-01-27 15:57] LABS: Alanine Aminotransferase 21 U/L (0-31); Albumin Level 3.9 g/dL (3.5-5.0); Alkaline Phosphatase 73 U/L (39-117); Anion Gap 11 (12-20); Aspartate Amino Transferase 16 U/L (5-31); Bilirubin Total 0.2 mg/dL (0.0-1.0); Blood Urea Nitrogen 20 mg/dL (9-16); Calcium 9.4 mg/dL (8.4-10.2); Carbon Dioxide 31 mmol/L (22-29); Chloride 103 mmol/L (96-108); Creatinine Clr Calc Pharmacy 96.3; Estimated Glomerular Filt Rate > 60; Ethanol < 10 mg/dL; Glucose Random 153 mg/dL (60-115); Potassium 4.7 mmol/L (3.3-5.1); Salicylate < 5.0 mg/dL (15-30); Sodium 140 mmol/L (135-145); Total Protein 6.1 g/dL (6.5-8.0)
[2023-01-27 16:37] LABS: Acetaminophen LAB < 17 mcg/mL (<30)
--- NOTE | 2023-01-27 17:16 | PC.NURSE ---
Addendum entered by Cyndi Jett 01/27/23 17:16: Sleeping in bed, resp even and unlabored. Awaiting care team consult. Original Note: Pt sleeping in bed,
[2023-01-27] MEDS: Ibuprofen 800 MG TABLET PO (19:30)
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
== END 2023-01-27 22:38 | disposition home or self-care (01) ==
PROVIDERS: Physician Assistant Medical; Emergency Provider Emergency Medicine Emergency Medical Services
DX: F33.1 Major depressive disorder, recurrent, moderate (principal); R45.851 Suicidal ideations; F17.210 Nicotine dependence, cigarettes, uncomplicated; Z20.822 Contact with and (suspected) exposure to COVID-19; Z20.828 Contact with and (suspected) exposure to other viral communicable diseases; Z79.899 Other long term (current) drug therapy; Z71.6 Tobacco abuse counseling
CPT/HCPCS: 36415; 80053; 80143; 80179; 80307; 81001; 82077; 85025; 87635; 99284; S9485

== ENCOUNTER 2023-03-01 19:11 | Emergency (ER) | payer MEDICAID, OTHER, SELFPAY ==
[2023-03-01 19:19] VITALS: BMI 41.6
--- NOTE | 2023-03-01 19:21 | ED_ITS ---
HPI - Psych General Stated Complaint: SI with depression Time Seen by Provider: 03/01/23 19:16 Source: patient and EMS Mode of arrival: EMS Limitations: no limitations History of Present Illness HPI Narrative: Patient comes to the emergency room complaining of suicidal ideation. Patient states that she relapsed and she is using drugs again. Patient states that she had 3 bottles of Tylenol on standby ready to use. Before she did, patient called 911. However, patient states that she is very happy that she was told that she no longer needs radiation therapy for her neck and she is cancer-free. Related Data Home Medications Medication Instructions Recorded Confirmed capsaicin 0.025 % topical cream 1 appl topical QID PRN pain 07/02/22 01/27/23 benztropine 1 mg tablet 1 tab PO BID 07/23/22 01/27/23 cholecalciferol (vitamin D3) 25 1 tab PO DAILY 07/23/22 01/27/23 mcg (1,000 unit) tablet omeprazole 20 mg capsule,delayed 1 cap PO DAILY@0630 07/23/22 01/27/23 release oxcarbazepine 150 mg tablet 1 tab PO BID 07/23/22 01/27/23 sertraline 50 mg tablet 50 mg PO DAILY 07/23/22 01/27/23 valacyclovir 1 gram tablet 1 tab PO BID 07/23/22 01/27/23 lithium carbonate 600 mg capsule 1 cap PO BID 07/24/22 01/27/23 cyanocobalamin (vitamin B-12) 100 1 tab PO DAILY 08/06/22 01/27/23 mcg tablet nitroglycerin 0.4 mg sublingual 0.4 mg sublingual Q5M PRN Chest 08/06/22 01/27/23 tablet Pain olanzapine 10 mg tablet 1 tab PO BEDTIME 08/06/22 01/27/23 bupropion HCl 150 mg 24 hr tablet, 150 mg PO QAM 09/23/22 01/27/23 extended release clonidine HCl 0.1 mg tablet 0.2 mg PO BEDTIME 09/23/22 01/27/23 ropinirole 0.5 mg tablet 0.5 mg PO BEDTIME 09/23/22 01/27/23 tiotropium bromide 18 mcg capsule 1 cap inhalation DAILY 09/23/22 01/27/23 with inhalation device (Spiriva with HandiHaler) gabapentin 300 mg capsule 600 mg PO TID 11/29/22 01/27/23 Previous Rx's Medication Instructions Recorded albuterol sulfate 90 mcg/actuation 2 puff inhalation Q4-6H PRN 04/20/22 aerosol inhaler shortness of breath or wheezing 30 days #1 inhaler ferrous sulfate 324 mg (65 mg 324 mg PO DAILY 30 days #30 tabs 05/18/22 iron) tablet,delayed release dextromethorphan-guaifenesin 10 10 ml PO Q6H PRN Cough #237 mL 11/30/22 mg-100 mg/5 mL oral syrup Allergies Allergy/AdvReac Type Severity Reaction Status Date / Time ampicillin Allergy Rash Verified 12/26/22 10:32 seafood AdvReac Stomach Verified 12/26/22 10:32 Upset Review of Systems Review of Systems: Constitutional : No Weight loss, No Fever, No Chills, No Night Sweats, No Fatigu e, No Malaise ENT/Mouth : No Hearing loss, No Ear Pain, No Nasal Congestion, No Sinus Pain, No Hoarseness, No sore throat, No Rhinorrhea, No Swallowing Difficulty Eyes: No Eye Pain, No Swelling, No Redness, No Foreign Body, No Discharge, No Vision Changes Cardiovascular : No Chest Pain, No SOB, No Dyspnea on Exertion, No Orthopnea, No Edema, No Palpitations Respiratory : No Cough, No Sputum, No Wheezing, No Smoke Exposure, No Dyspnea Gastrointestinal : No Nausea, No Vomiting, No Diarrhea, No Constipation, No abdominal Pain, No Hematochezia, No Melena Genitourinary : no irregular bleeding, No Dysuria, No Urinary Frequency, No Hematuria, No Urinary Incontinence, No Urgency, No Flank Pain, No Urinary Flow Changes, No Hesitancy Musculoskeletal : No joint pain, No Myalgias, No Joint Swelling Skin : No Skin Lesions, No rash Neuro : No Weakness, No Numbness, No Paresthesias, No Loss of Consciousness, No Dizziness, No Headache Psych : No Anxiety/Panic, complaining of suicidal ideation and substance abuse Heme/Lymph: No Bruising, No Bleeding,No Lymphadenopathy Endocrine : No Polyuria, No Polydipsia, No Temperature Intolerance PMFSH Past Medical History Medical History Asthma exacerbation in COPD Asthma-COPD overlap syndrome Bipolar disorder Bipolar I disorder Borderline personality disorder Chronic lung disease COPD (chronic obstructive pulmonary disease) Depression Drug abuse Herpes Intermittent explosive disorder Mass of parotid gland FABIOLA (obstructive sleep apnea) Post traumatic stress disorder (PTSD) Pseudoseizures Tobacco use Surgical History History of ankle surgery History of appendectomy History of back surgery Hx of cholecystectomy Family History Family History Mother COPD (chronic obstructive pulmonary disease) Social History Social History Household Members: None Household Members Other:: [facility] in [place] Housing: Apartment Housing Other:: Sleeps on the couch at [facility] house Do you presently have visiting nurse or other home services: Yes (twice a day) Unable to assess alcohol history related to: Unknown Alcohol intake: never Patient Tobacco Use Status: Current everyday Tobacco user Tobacco use type: Cigarette Cigarette Packs Per Day: 3 Cigarettes Per Day: 10 Years Smoked: 34 e-Cigarette/Vaping Use: Former Use Second Hand Smoke Exposure: No Substance Use Type: Crack/Cocaine Advance Directives Date on File: 06/17/22 service: No Current occupational status: unemployed and disabled Sexual orientation: Straight/Heterosexual Physical Exam Const: Other: Appearance: Alert. Oriented X3. No acute distress. Eyes: Pupils equal, round and reactive to light. ENT: Pharynx normal. Neck: Normal inspection. Neck supple. No lymph nodes noted. No crepitus CVS: Normal heart rate and rhythm. Pulses normal. Normal S1 and S2 Respiratory: No respiratory distress. Breath sounds normal. No Wheezing. No rales Abdomen: Soft and nontender. No rigidity. No distention. Skin: Skin warm and dry. Normal skin color. Normal skin turgor. Extremities: No lower extremity edema. No Lacerations. No Rash Neuro: Oriented X 3. No motor deficit. No sensory deficit. Moving all extremities. No slurred speech. CN 2 through 12 grossly intact Psych: calm, cooperative, normal affect Course Course Course Narrative: -of patient's labs are pending -care consult pending -physician observation started at 19:20 Discharge Plan Discharge Clinical Impression: Suicidal ideation Patient Disposition: Still a Patient Prescriptions: No Action albuterol sulfate 90 mcg/actuation HFA aerosol inhaler 2 puff inhalation Q4-6H PRN (Reason: shortness of breath or wheezing) 30 Days Qty: 1 0RF ferrous sulfate 324 mg (65 mg iron) tablet,delayed release (DR/EC) 324 mg PO DAILY 30 Days Qty: 30 0RF capsaicin 0.025 % cream 1 appl topical QID PRN (Reason: pain) oxcarbazepine 150 mg tablet 1 tab PO BID valacyclovir 1 gram tablet 1 tab PO BID benztropine 1 mg tablet 1 tab PO BID omeprazole 20 mg capsule,delayed release(DR/EC) 1 cap PO DAILY@0630 sertraline 50 mg tablet 50 mg PO DAILY cholecalciferol (vitamin D3) 25 mcg (1,000 unit) tablet 1 tab PO DAILY lithium carbonate 600 mg capsule 1 cap PO BID nitroglycerin 0.4 mg tablet, sublingual 0.4 mg sublingual Q5M PRN (Reason: Chest Pain) cyanocobalamin (vitamin B-12) 100 mcg tablet 1 tab PO DAILY olanzapine 10 mg tablet 1 tab PO BEDTIME Spiriva with HandiHaler 18 mcg capsule, w/inhalation device 1 cap inhalation DAILY ropinirole 0.5 mg Tablet 0.5 mg PO BEDTIME Rx Instructions: administer 1-3 hours before bedtime clonidine HCl 0.1 mg Tablet 0.2 mg PO BEDTIME bupropion HCl 150 mg Tablet Extended Release 24 Hr 150 mg PO QAM gabapentin 300 mg Capsule 600 mg PO TID dextromethorphan-guaifenesin 10-100 mg/5 mL Syrup 10 ml PO Q6H PRN (Reason: Cough) Qty: 237 0RF
[2023-03-01 20:19] LABS: Amphetamine Screen Urine Not Detected (Not Detect); Barbiturates, Urine Not Detected (Not Detect); Benzodiazepines Screen Urine Not Detected (Not Detect); Cannabinoid Screen Urine Not Detected (Not Detect); Cocaine Screen Urine POSITIVE (Not Detect); Fentanyl, urine Not Detected (Not Detect); Opiate Screen Urine Not Detected (Not Detect); Phencyclidine Screen Urine Not Detected (Not Detect)
[2023-03-01 20:24] LABS: COVID-19 Test Negative (Negative); IDNOW Serial# 08D9AD1C
[2023-03-01 20:46] LABS: MANUAL DIFF FLAG NO
[2023-03-01 20:49] LABS: Basophils Absolute Auto 0.1 X10*3/uL (0.0-0.2); Basophils Percent Auto 0.9 % (0-2); Eosinophils Absolute Auto 0.1 X10*3/uL (0.0-0.4); Eosinophils Percent Auto 0.8 % (0-4); Hematocrit 44.1 % (37.0-47.0); Hemoglobin 14.5 g/dl (12.0-16.0); Imm Gran Abs Auto 0.04 X10*3/uL (0.00-0.03); Imm Gran Pct Auto 0.4 % (0.0-0.4); Lymphocytes Absolute Auto 2.1 X10*3/uL (1.2-4.9); Lymphocytes Percent Auto 19.1 % (20-40); Mean Corpuscular HGB Conc 32.9 g/dl (31.0-35.0); Mean Corpuscular Hemoglobin 32.6 pg (27.0-33.0); Mean Corpuscular Volume 99.1 fL (80.0-98.0); Mean Platelet Volume 10.6 fL (9.4-12.3); Monocytes Absolute Auto 0.5 X10*3/uL (0.1-1.2); Monocytes Percent Auto 4.6 % (2-11); Neutrophils Absolute Auto 8.3 x10*3/uL (2.0-8.3); Neutrophils Percent Auto 74.2 % (45-73); Platelet Count 271 X10*3/uL (160-400); Red Blood Count 4.45 X10*6/uL (4.20-5.50); Red Cell Distribution Width 12.4 % (11.0-16.0); White Blood Count 11.2 X10*3/uL (4.8-10.8)
[2023-03-01 20:50] VITALS: BP 141/69; PULSE 99; RESP 18; TEMP 36.7; O2SAT 94
[2023-03-01 20:56] LABS: Lithium 0.92 mmol/L (0.60-1.20)
[2023-03-01 21:01] LABS: Anion Gap 17 (12-20); Blood Urea Nitrogen 23 mg/dL (9-16); Calcium 10.4 mg/dL (8.4-10.2); Carbon Dioxide 24 mmol/L (22-29); Chloride 102 mmol/L (96-108); Creatinine Clr Calc Pharmacy 92.8; Estimated Glomerular Filt Rate > 60; Ethanol < 10 mg/dL; Glucose Random 149 mg/dL (60-115); Sodium 139 mmol/L (135-145)
[2023-03-01 21:03] LABS: Appearance Urine Cloudy; Color Urine Yellow; Glucose Urine UA Negative (Negative); Leukocyte Esterase Urine Large (3+) (Negative); Nitrite Urine Negative (Negative); PH 6.5 (5.0-9.0); UMIC TRIGGER UACC YES; Urine Blood Trace (Negative); Urine Ketones Negative (Negative); Urine Protein Trace mg/dL (Neg-Trace)
[2023-03-01 21:04] LABS: Acetaminophen LAB < 17 mcg/mL (<30); Alanine Aminotransferase 13 U/L (0-31); Albumin Level 4.7 g/dL (3.5-5.0); Alkaline Phosphatase 86 U/L (39-117); Aspartate Amino Transferase 21 U/L (5-31); Bilirubin Direct 0.1 mg/dL (0.0-0.5); Bilirubin Total 0.3 mg/dL (0.0-1.0); Salicylate < 5.0 mg/dL (15-30)
[2023-03-01 21:08] LABS: Bacteria Urine 3+ (None Seen); RBC Urine 0-2 /HPF (0-2); Squamous Epithelial Cell Urine >20 /HPF (0-2); UACC Culture Trigger YES; WBC Urine >50 /HPF (0-5)
[2023-03-01] MEDS: Acetaminophen 325 MG TABLET 975 MG PO (22:30)
[2023-03-01 23:16] VITALS: BP 119/76; PULSE 80; RESP 17; TEMP 36.6; O2SAT 91
[2023-03-02] MEDS: Acetaminophen 325 MG TABLET 975 MG PO (05:26)
--- NOTE | 2023-03-02 05:32 | PC.NURSE ---
Patient slept through the night, no distress observed/reported except leg pain, administered Tylenol 975 mg x 2, @ 9141/7252 with + effect, behavior non concerning, labs completed/resulted, med rec completed/pending provider's approval, patient assessed by care team, disposition pending, patient will be re-evaluated, VSS, will continue to monitor.
[2023-03-02] MEDS: Lithium Carbonate 300 MG CAPSULE 600 MG PO ×2 (10:29→19:54)
[2023-03-02] MEDS: Omeprazole 20 MG CAPSULE.DR PO (10:30)
[2023-03-02] MEDS: Sertraline HCL 50 MG TABLET PO (10:30)
[2023-03-02] MEDS: Cyanocobalamin (Vitamin B-12) 100 MCG TABLET PO (10:30)
[2023-03-02] MEDS: valACYclovir HCL 1,000 MG TABLET 1000 MG PO ×2 (10:30→19:53)
[2023-03-02] MEDS: Benztropine Mesylate 1 MG TABLET PO ×2 (10:30→19:53)
[2023-03-02] MEDS: Cholecalciferol (Vitamin D3) 25 MCG TABLET PO (10:31)
[2023-03-02] MEDS: OXcarbazepine 150 MG TABLET PO ×2 (10:31→19:53)
[2023-03-02] MEDS: Ferrous Sulfate 324 MG TABLET.DR PO (10:31)
--- NOTE | 2023-03-02 10:40 | PHA.MEDREC ---
Pharmacy Consult ? Medication Reconciliation Called [facility] to confirm medication . Pharmacy has completed the medication reconciliation.
[2023-03-02 11:56] VITALS: BP 133/75; PULSE 80; RESP 20; TEMP 36.6; O2SAT 94
[2023-03-02 19:53] VITALS: BP 137/68; PULSE 74; RESP 19; TEMP 36.4; O2SAT 92
[2023-03-02] MEDS: Gabapentin 400 MG CAPSULE PO (19:53)
[2023-03-02] MEDS: OLANZapine 10 MG TABLET PO (19:53)
[2023-03-02] MEDS: cloNIDine HCL 0.2 MG TABLET PO (19:54)
[2023-03-02] MEDS: rOPINIRole HCL 1 MG TABLET PO (19:54)
[2023-03-03 04:32] VITALS: BP 133/92; PULSE 74; RESP 19; TEMP 36.4; O2SAT 96
[2023-03-03] MEDS: Omeprazole 20 MG CAPSULE.DR PO (05:36)
--- NOTE | 2023-03-03 05:44 | PC.NURSE ---
Patient slept through the night, no distress observed/reported, behavior non concerning, labs completed/resulted, medication compliant, patient assessed by care team, disposition pending, patient will be re-evaluated, VSS, will continue to monitor.
[2023-03-03 07:31] VITALS: BP 127/74; PULSE 74; RESP 14; TEMP 36.4; O2SAT 98
[2023-03-03] MEDS: Lithium Carbonate 300 MG CAPSULE 600 MG PO (09:08)
[2023-03-03] MEDS: Gabapentin 400 MG CAPSULE PO (09:08)
[2023-03-03] MEDS: Cholecalciferol (Vitamin D3) 25 MCG TABLET PO (09:08)
[2023-03-03] MEDS: Cyanocobalamin (Vitamin B-12) 100 MCG TABLET PO (09:08)
[2023-03-03] MEDS: Benztropine Mesylate 1 MG TABLET PO (09:09)
[2023-03-03] MEDS: Sertraline HCL 50 MG TABLET PO (09:09)
[2023-03-03] MEDS: valACYclovir HCL 1,000 MG TABLET 1000 MG PO (09:09)
[2023-03-03] MEDS: Ferrous Sulfate 324 MG TABLET.DR PO (09:09)
[2023-03-03] MEDS: buPROPion HCl XL 150 MG TAB.ER.24H PO (09:09)
[2023-03-03] MEDS: OXcarbazepine 150 MG TABLET PO (09:09)
== END 2023-03-03 09:48 | disposition home or self-care (01) ==
PROVIDERS: Emergency Medicine; Emergency Provider Emergency Medicine
DX: F33.1 Major depressive disorder, recurrent, moderate (principal); R45.851 Suicidal ideations; F14.90 Cocaine use, unspecified, uncomplicated; F17.210 Nicotine dependence, cigarettes, uncomplicated; Z20.822 Contact with and (suspected) exposure to COVID-19; Z20.828 Contact with and (suspected) exposure to other viral communicable diseases; Z71.6 Tobacco abuse counseling; Z79.899 Other long term (current) drug therapy
CPT/HCPCS: 36415; 80048; 80076; 80143; 80178; 80179; 80307; 81001; 81003; 85025; 87086; 87635; 99285; S9485

== ENCOUNTER 2023-03-07 22:06 | Inpatient (IN) | payer MEDICAID, SELFPAY ==
--- NOTE | ~2023-03-07 | XR_ITS ---
EXAMINATION: XR CHEST CLINICAL INFORMATION: Dyspnea. COMPARISON: 01/14/2023 chest radiographs. TECHNIQUE: Frontal view of the chest was obtained. FINDINGS: No significant abnormality is noted involving the heart, lungs, mediastinum, bony thorax or soft tissues. XR/XR chest 1V IMPRESSION: No acute cardiopulmonary process.
[2023-03-07 22:10] VITALS: BP 102/66; BP 131/81; PULSE 86; PULSE 94; RESP 20; TEMP 36.8; O2SAT 88; O2SAT 92; BMI 49.9
--- NOTE | 2023-03-07 22:15 | ECG_ITS ---
Test Reason : SOB Blood Pressure : / mmHG Vent. Rate : 084 BPM Atrial Rate : 084 BPM P-R Int : 158 ms QRS Dur : 086 ms QT Int : 398 ms P-R-T Axes : 001 020 -07 degrees QTc Int : 470 ms Normal sinus rhythm Nonspecific T wave abnormality Abnormal ECG When compared to the previous EKG of december 29 2022, non specific ST T changes present. Referred By: Paola Gabriel Electronically Signed By:ALEJANDRO MCCLELLAN
[2023-03-07 22:37] LABS: MANUAL DIFF FLAG NO
[2023-03-07 22:41] LABS: Basophils Absolute Auto 0.1 X10*3/uL (0.0-0.2); Basophils Percent Auto 0.8 % (0-2); Eosinophils Absolute Auto 0.1 X10*3/uL (0.0-0.4); Eosinophils Percent Auto 1.6 % (0-4); Hematocrit 41.7 % (37.0-47.0); Hemoglobin 13.3 g/dl (12.0-16.0); Imm Gran Abs Auto 0.03 X10*3/uL (0.00-0.03); Imm Gran Pct Auto 0.3 % (0.0-0.4); Lymphocytes Absolute Auto 1.5 X10*3/uL (1.2-4.9); Lymphocytes Percent Auto 16.3 % (20-40); Mean Corpuscular HGB Conc 31.9 g/dl (31.0-35.0); Mean Corpuscular Hemoglobin 31.5 pg (27.0-33.0); Mean Corpuscular Volume 98.8 fL (80.0-98.0); Monocytes Absolute Auto 0.5 X10*3/uL (0.1-1.2); Neutrophils Absolute Auto 6.7 x10*3/uL (2.0-8.3); Platelet Count 275 X10*3/uL (160-400); Red Blood Count 4.22 X10*6/uL (4.20-5.50); Red Cell Distribution Width 11.9 % (11.0-16.0); White Blood Count 8.9 X10*3/uL (4.8-10.8)
[2023-03-07 22:54] LABS: Anion Gap 12 (12-20); Blood Urea Nitrogen 16 mg/dL (9-16); Calcium 10.3 mg/dL (8.4-10.2); Carbon Dioxide 30 mmol/L (22-29); Chloride 103 mmol/L (96-108); Creatinine Clr Calc Pharmacy 109.6; Estimated Glomerular Filt Rate > 60; Glucose Random 119 mg/dL (60-115); Potassium 4.5 mmol/L (3.3-5.1); Sodium 140 mmol/L (135-145)
[2023-03-07 23:03] LABS: Troponin-I High Sensitivity < 2.7 ng/L (<3.5-17.0)
--- NOTE | 2023-03-07 23:14 | ED.SOB ---
HPI - SOB/Dyspnea General Chief Complaint: Dyspnea Stated Complaint: SOB Time Seen by Provider: 03/07/23 22:15 History of Present Illness HPI Narrative: Been is a 53-year-old female presented today with having wheezing coughing congestion upper respiratory symptoms. Long history of COPD in the past. Patient is still smoking. She is from home. Positive generalized malaise wheezing. Unresolved with home remedy and nebulized treatment. Presented to the ED. Baseline not on oxygen. Patient vaccinated for COVID Related Data Home Medications Medication Instructions Recorded Confirmed benztropine 1 mg tablet 1 tab PO BID 07/23/22 03/01/23 cholecalciferol (vitamin D3) 25 1 tab PO DAILY 07/23/22 03/01/23 mcg (1,000 unit) tablet omeprazole 20 mg capsule,delayed 1 cap PO DAILY@0630 07/23/22 03/01/23 release oxcarbazepine 150 mg tablet 1 tab PO BID 07/23/22 03/01/23 sertraline 50 mg tablet 50 mg PO DAILY 07/23/22 03/01/23 valacyclovir 1 gram tablet 1 tab PO BID 07/23/22 03/01/23 lithium carbonate 600 mg capsule 1 cap PO BID 07/24/22 03/01/23 cyanocobalamin (vitamin B-12) 100 1 tab PO DAILY 08/06/22 03/01/23 mcg tablet nitroglycerin 0.4 mg sublingual 0.4 mg sublingual Q5M PRN Chest 08/06/22 03/01/23 tablet Pain olanzapine 10 mg tablet 1 tab PO BEDTIME 08/06/22 03/01/23 bupropion HCl 150 mg 24 hr tablet, 150 mg PO QAM 09/23/22 03/01/23 extended release clonidine HCl 0.1 mg tablet 0.2 mg PO BEDTIME 09/23/22 03/01/23 tiotropium bromide 18 mcg capsule 1 cap inhalation DAILY 09/23/22 03/01/23 with inhalation device (Spiriva with HandiHaler) acetaminophen 500 mg tablet 500 mg PO Q8H PRN Pain 03/02/23 03/02/23 gabapentin 400 mg tablet 400 mg PO BID 03/02/23 03/02/23 ipratropium 18 mcg-albuterol 103 1 spray inhalation QID PRN Wheezing 03/02/23 03/02/23 mcg/actuation aerosol inhaler ropinirole 1 mg tablet 1 mg PO BEDTIME 03/02/23 03/02/23 Previous Rx's Medication Instructions Recorded albuterol sulfate 90 mcg/actuation 2 puff inhalation Q4-6H PRN 04/20/22 aerosol inhaler shortness of breath or wheezing 30 days #1 inhaler ferrous sulfate 324 mg (65 mg 324 mg PO DAILY 30 days #30 tabs 05/18/22 iron) tablet,delayed release Allergies Allergy/AdvReac Type Severity Reaction Status Date / Time ampicillin Allergy Rash Verified 12/26/22 10:32 seafood AdvReac Stomach Verified 12/26/22 10:32 Upset Review of Systems Review of Systems: Positive coughing positive shortness of breath Yes all other systems are reviewed and are negative [facility] Past Medical History Medical History Asthma exacerbation in COPD Asthma-COPD overlap syndrome Bipolar disorder Bipolar I disorder Borderline personality disorder Chronic lung disease COPD (chronic obstructive pulmonary disease) Depression Drug abuse Herpes Intermittent explosive disorder Mass of parotid gland FABIOLA (obstructive sleep apnea) Post traumatic stress disorder (PTSD) Pseudoseizures Tobacco use Surgical History History of ankle surgery History of appendectomy History of back surgery Hx of cholecystectomy Family History Family History Mother COPD (chronic obstructive pulmonary disease) Social History Social History Household Members: None Household Members Other:: Residential in [place] Housing: Apartment Housing Other:: Sleeps on the couch at [facility] house Do you presently have visiting nurse or other home services: Yes (twice a day) Unable to assess alcohol history related to: Unknown Alcohol intake: never Patient Tobacco Use Status: Current everyday Tobacco user Tobacco use type: Cigarette Cigarette Packs Per Day: 3 Cigarettes Per Day: 10 Years Smoked: 34 Smoked in Last 30 Days: Yes e-Cigarette/Vaping Use: Former Use Second Hand Smoke Exposure: No Use of substances other than those prescribed or required for medical reasons: No Substance Use Type: Crack/Cocaine Advance Directives: Yes Advance Directives on File: Yes Advance Directives Date on File: 06/17/22 Patient : No service: No Current occupational status: unemployed and disabled Sexual orientation: Straight/Heterosexual Physical Exam Vital Signs: Vital Signs: Last Vital Signs Temp 98.3 F 03/07/23 22:10 Pulse 87 03/07/23 23:26 Resp 18 03/07/23 23:26 BP 102/66 03/07/23 22:10 Pulse Ox 88 L 03/08/23 00:09 O2 Del Method Nasal Cannula 03/08/23 00:09 O2 Flow Rate 2 03/08/23 00:09 Oxygen Flow Rate 2 03/07/23 22:10 BMI result Body Mass Index 49.9 Appearance: Alert. Oriented X3. No acute distress. Eyes: Pupils equal, round and reactive to light. ENT: Pharynx normal. Neck: Normal inspection. Neck supple. No lymph nodes noted. No crepitus CVS: Normal heart rate and rhythm. Pulses normal. Normal S1 and S2 Respiratory: Diminished breath sounds bilaterally positive wheezing bilaterally Abdomen: Soft and nontender. No rigidity. No distention. good BS x4 Skin: Skin warm and dry. Normal skin color. Normal skin turgor. Extremities: No lower extremity edema. Neurovascular intact to all extremities. No Lacerations. No Rash Neuro: Oriented X 3. No motor deficit. No sensory deficit. Moving all extermities. No slurred speech Medications Administered Discontinued Medications Generic Name Dose Route Start Last Admin Trade Name Jacob PRN Reason Stop Dose Admin Albuterol Sulfate 5 mg 03/07/23 23:13 03/07/23 23:26 Albuterol Sulfate (0.083%) 2.5 Mg/3 Ml Vial.Neb INHALE 03/07/23 23:14 5 mg ONCE ONE Administration Albuterol/Ipratropium 3 ml 03/07/23 23:13 03/07/23 23:25 Albuterol/Iprat 2.5/0.5mg 3 Ml Ampul.Neb INHALE 03/07/23 23:14 3 ml ONCE ONE Administration Magnesium Sulfate 2 gm in 50 mls @ 150 mls/hr 03/07/23 23:13 03/07/23 23:59 Magnesium Sulfate/H2o IV 03/07/23 23:32 150 mls/hr ONCE ONE Administration Methylprednisolone Sodium Succinate 125 mg 03/07/23 23:13 03/07/23 23:59 Methylprednisolone Sod Succ 125 Mg/2 Ml Vial IVPUSH 03/07/23 23:14 125 mg ONCE ONE Administration Medical Decision Making Medical Decision Making [facility] Narrative: Positive shortness of breath wheezing with a history of COPD. Patient is still smoking. My interpretation patient's chest x-ray showed no focal infiltrate. Patient's flu RSV COVID were all negative. Given neb treatments steroids. Continuous neb treatment was given. Placed on close monitoring. Still hypoxic. O2 sat drops to 88-89% after neb treatment. Will admit for further evaluation and monitoring. Explained to patient the need to stop smoking. No evidence for congestive heart failure. No evidence for pneumonia. No pneumothorax noted on the x-ray. Patient is currently in stable condition awaiting admission. Case was consulted by the hospitalist service. Differential Diagnosis Differential Diagnoses: The differential diagnosis associated with the presentation includes COPD, CHF, pneumonia, pneumothorax Consult Healthcare Provider Management of the patient was discussed with: Hospitalist Lab Data [facility] Lab Attestation statement: I reviewed the patient's lab results. 03/07/23 22:33 03/07/23 22:33 Labs: Lab Results 03/07/23 03/07/23 03/07/23 Range/Units 22:33 22:33 22:33 WBC 8.9 (4.8-10.8) X10*3/uL RBC 4.22 (4.20-5.50) X10*6/uL Hgb 13.3 (12.0-16.0) g/dl Hct 41.7 (37.0-47.0) % MCV 98.8 H (80.0-98.0) fL MCH 31.5 (27.0-33.0) pg MCHC 31.9 (31.0-35.0) g/dl RDW 11.9 (11.0-16.0) % Plt Count 275 (160-400) X10*3/uL MPV 10.0 (9.4-12.3) fL Immature Gran % (Auto) 0.3 (0.0-0.4) % Neut % (Auto) 75.0 H (45-73) % Lymph % (Auto) 16.3 L (20-40) % [place] % (Auto) 6.0 (2-11) % Eos % (Auto) 1.6 (0-4) % Baso % (Auto) 0.8 (0-2) % Lymph # (Auto) 1.5 (1.2-4.9) X10*3/uL [place] # (Auto) 0.5 (0.1-1.2) X10*3/uL Eos # (Auto) 0.1 (0.0-0.4) X10*3/uL Baso # (Auto) 0.1 (0.0-0.2) X10*3/uL Abs Immat Gran (auto) 0.03 (0.00-0.03) X10*3/uL Absolute Neuts (auto) 6.7 (2.0-8.3) x10*3/uL Absolute Nucleated RBC 0.000 (0.0-0.012) X10*3/uL Nucleated RBC % (auto) 0.0 (0.0-0.2) /100WBC Sodium 140 (135-145) mmol/L Potassium 4.5 (3.3-5.1) mmol/L Chloride 103 (96-108) mmol/L Carbon Dioxide 30 H (22-29) mmol/L Anion Gap 12 (12-20) BUN 16 (9-16) mg/dL Creatinine 0.84 (0.5-1.4) mg/dL Estim Creat Clear Calc 109.6 Estimated GFR > 60 Random Glucose 119 H (60-115) mg/dL Calcium 10.3 H (8.4-10.2) mg/dL Troponin I High Sens < 2.7 (<3.5-17.0) ng/L B-Natriuretic Peptide (<100) pg/mL COVID-19 (ENDY) (Negative) COVID-19 Clin Com Influenza Type A (KELY) (Negative) Influenza Type B (KELY) (Negative) Influenza A & B Note 03/07/23 03/07/23 03/07/23 Range/Units 22:33 23:17 23:17 WBC (4.8-10.8) X10*3/uL RBC (4.20-5.50) X10*6/uL Hgb (12.0-16.0) g/dl Hct (37.0-47.0) % MCV (80.0-98.0) fL MCH (27.0-33.0) pg MCHC (31.0-35.0) g/dl RDW (11.0-16.0) % Plt Count (160-400) X10*3/uL MPV (9.4-12.3) fL Immature Gran % (Auto) (0.0-0.4) % Neut % (Auto) (45-73) % Lymph % (Auto) (20-40) % [place] % (Auto) (2-11) % Eos % (Auto) (0-4) % Baso % (Auto) (0-2) % Lymph # (Auto) (1.2-4.9) X10*3/uL [place] # (Auto) (0.1-1.2) X10*3/uL Eos # (Auto) (0.0-0.4) X10*3/uL Baso # (Auto) (0.0-0.2) X10*3/uL Abs Immat Gran (auto) (0.00-0.03) X10*3/uL Absolute Neuts (auto) (2.0-8.3) x10*3/uL Absolute Nucleated RBC (0.0-0.012) X10*3/uL Nucleated RBC % (auto) (0.0-0.2) /100WBC Sodium (135-145) mmol/L Potassium (3.3-5.1) mmol/L Chloride (96-108) mmol/L Carbon Dioxide (22-29) mmol/L Anion Gap (12-20) BUN (9-16) mg/dL Creatinine (0.5-1.4) mg/dL Estim Creat Clear Calc Estimated GFR Random Glucose (60-115) mg/dL Calcium (8.4-10.2) mg/dL Troponin I High Sens (<3.5-17.0) ng/L B-Natriuretic Peptide 13 (<100) pg/mL COVID-19 (ENDY) Negative (Negative) COVID-19 Clin Com See Note Influenza Type A (KELY) Negative (Negative) Influenza Type B (KELY) Negative (Negative) Influenza A & B Note See Note Independent Interpretation I performed an independent interpretation of an: EKG Interpretation: My interpretation the patient's EKG showed a sinus pattern heart rate is 90 MD QRS QT within normal limits there is diffuse T-wave flattening noted Radiology Impression Discussion of test interpretation with radiology: I have reviewed the radiologist's reading. External Record Review External record reviewed: Inpatient record Chronic Conditions COPD Critical Care Time Critical Care Time Critical Care Time: Yes Total Critical Care Time: 40 Attestation: I have personally provided 40 minutes of critical care time exclusive of time spent on separately billable procedures. Time includes review of lab data, radiology results, discussion with consultants, and monitoring for potential decompensation. Interventions were performed as documented above Discharge Plan Discharge Clinical Impression: COPD (chronic obstructive pulmonary disease) Patient Disposition: Admitted As Inpatient Prescriptions: No Action albuterol sulfate 90 mcg/actuation HFA aerosol inhaler 2 puff inhalation Q4-6H PRN (Reason: shortness of breath or wheezing) 30 Days Qty: 1 0RF ferrous sulfate 324 mg (65 mg iron) tablet,delayed release (DR/EC) 324 mg PO DAILY 30 Days Qty: 30 0RF oxcarbazepine 150 mg tablet 1 tab PO BID valacyclovir 1 gram tablet 1 tab PO BID benztropine 1 mg tablet 1 tab PO BID omeprazole 20 mg capsule,delayed release(DR/EC) 1 cap PO DAILY@0630 sertraline 50 mg tablet 50 mg PO DAILY cholecalciferol (vitamin D3) 25 mcg (1,000 unit) tablet 1 tab PO DAILY lithium carbonate 600 mg capsule 1 cap PO BID nitroglycerin 0.4 mg tablet, sublingual 0.4 mg sublingual Q5M PRN (Reason: Chest Pain) cyanocobalamin (vitamin B-12) 100 mcg tablet 1 tab PO DAILY olanzapine 10 mg tablet 1 tab PO BEDTIME Spiriva with HandiHaler 18 mcg capsule, w/inhalation device 1 cap inhalation DAILY clonidine HCl 0.1 mg Tablet 0.2 mg PO BEDTIME bupropion HCl 150 mg Tablet Extended Release 24 Hr 150 mg PO QAM ropinirole 1 mg Tablet 1 mg PO BEDTIME Rx Instructions: administer 1-3 hours before bedtime acetaminophen 500 mg Tablet 500 mg PO Q8H PRN (Reason: Pain) Combivent 18-103 mcg/actuation Aerosol 1 spray INHALATION QID PRN (Reason: Wheezing) gabapentin 400 mg Tablet 400 mg PO BID
[2023-03-07] MEDS: Albuterol/Iprat 2.5/0.5MG 3 ML AMPUL.NEB INHALE (23:25)
[2023-03-07 23:26] VITALS: PULSE 87; RESP 18; O2SAT 89
[2023-03-07] MEDS: Albuterol Sulfate (0.083%) 2.5 MG/3 ML VIAL.NEB 5 MG INHALE (23:26)
[2023-03-07 23:42] LABS: B Type Natriuretic Peptide 13 pg/mL (<100)
[2023-03-07 23:46] LABS: COVID-19 Test Negative (Negative); IDNOW Serial# 08D9AD1C; IDNOW Serial# BCCEAD1C; Influenza A Negative (Negative); Influenza B2 Negative (Negative)
[2023-03-07] MEDS: methylPREDNISolone Sod Succ 125 MG/2 ML VIAL IVPUSH (23:59)
[2023-03-07] MEDS: Magnesium Sulfate/H2O 2 GM/50 ML PIGGYBACK IV (23:59)
[2023-03-08] VITALS (11 sets, daily range): BP systolic 119–149; BP diastolic 64–78; PULSE 59–94; RESP 16–20; TEMP 36.1–36.3; O2SAT 88–96; BMI 45.5
--- NOTE | 2023-03-08 00:09 | PC.NURSE ---
pt continues to be 88% on 2L NC despite respiratory treatments and medications. O2 bumped up to 3L. pt becomes increasingly sob when getting up to commode. unsteady on feet, one staff assist up to commode and back into bed. O2 drops to 82% on 2L with movement and exertion. Gabriel aware. will CTM.
--- NOTE | 2023-03-08 00:17 | PM.IMHP ---
History of Present Illness Date of Service: 03/08/23 Chief Complaint: Dyspnea This is a 53-year-old female with pertinent history of mood disorder, tobacco use disorder, COPD/asthma not on home oxygen, fibromyalgia who presents to the emergency department with complaints of dyspnea and wheezing.? Patient states she started having dyspnea, worse with exertion about 5-6 days prior to presentation.? It has been progressive and associated with wheezing.? Patient used home inhaler without any relief.? She denies fever, chills, chest discomfort, palpitations, abdominal pain, changes in bowel habits.? Patient also complains of cough. Continues to smoke 2 cigarettes per day. In the emergency department, patient was found to be hypoxemic requiring 2 L supplemental oxygen. Review of Systems Constitutional: Constitutional: Reports fatigue Cardiovascular: Cardiovascular: Reports dyspnea on exertion Respiratory: Respiratory: Reports cough, Reports dyspnea on exertion and Reports wheezing Gastrointestinal: Gastrointestinal: Reports no additional gastrointestinal complaints Genitourinary: Genitourinary: Reports no additional female genitourinary complaints Endocrine: Endocrine: Reports fatigue Allergic/Immunologic: Allergic/Immunologic: Reports wheezing [facility] Medical History Asthma exacerbation in COPD Asthma-COPD overlap syndrome Bipolar disorder Bipolar I disorder Borderline personality disorder Chronic lung disease COPD (chronic obstructive pulmonary disease) Depression Drug abuse Herpes Intermittent explosive disorder Mass of parotid gland FABIOLA (obstructive sleep apnea) Post traumatic stress disorder (PTSD) Pseudoseizures Tobacco use Family History Mother COPD (chronic obstructive pulmonary disease) Surgical History History of ankle surgery History of appendectomy History of back surgery Hx of cholecystectomy Social History Household Members: None Household Members Other:: Half-Way in [place] Housing: Apartment Housing Other:: Sleeps on the couch at [facility] house Do you presently have visiting nurse or other home services: Yes (twice a day) Unable to assess alcohol history related to: Unknown Alcohol intake: never Patient Tobacco Use Status: Current everyday Tobacco user Tobacco use type: Cigarette Cigarette Packs Per Day: 3 Cigarettes Per Day: 10 Years Smoked: 34 Smoked in Last 30 Days: Yes e-Cigarette/Vaping Use: Former Use Second Hand Smoke Exposure: No Use of substances other than those prescribed or required for medical reasons: No Substance Use Type: Crack/Cocaine Advance Directives: Yes Advance Directives on File: Yes Advance Directives Date on File: 06/17/22 Patient : No service: No Current occupational status: unemployed and disabled Sexual orientation: Straight/Heterosexual Meds Allergies Allergy/AdvReac Type Severity Reaction Status Date / Time ampicillin Allergy Rash Verified 12/26/22 10:32 seafood AdvReac Stomach Verified 12/26/22 10:32 Upset Home Medications Medication Instructions Recorded Confirmed Last Taken Type benztropine 1 mg tablet 1 tab PO BID 07/23/22 03/01/23 01/27/23 History cholecalciferol (vitamin D3) 25 1 tab PO DAILY 07/23/22 03/01/23 01/27/23 History mcg (1,000 unit) tablet omeprazole 20 mg capsule,delayed 1 cap PO DAILY@0630 07/23/22 03/01/23 01/27/23 History release oxcarbazepine 150 mg tablet 1 tab PO BID 07/23/22 03/01/23 01/27/23 History sertraline 50 mg tablet 50 mg PO DAILY 07/23/22 03/01/23 01/27/23 History valacyclovir 1 gram tablet 1 tab PO BID 07/23/22 03/01/23 01/27/23 History lithium carbonate 600 mg capsule 1 cap PO BID 07/24/22 03/01/23 01/27/23 History cyanocobalamin (vitamin B-12) 100 1 tab PO DAILY 08/06/22 03/01/23 01/27/23 History mcg tablet nitroglycerin 0.4 mg sublingual 0.4 mg sublingual Q5M PRN Chest 08/06/22 03/01/23 12/28/22 History tablet Pain olanzapine 10 mg tablet 1 tab PO BEDTIME 08/06/22 03/01/23 01/27/23 History bupropion HCl 150 mg 24 hr tablet, 150 mg PO QAM 09/23/22 03/01/23 01/27/23 History extended release clonidine HCl 0.1 mg tablet 0.2 mg PO BEDTIME 09/23/22 03/01/23 01/27/23 History tiotropium bromide 18 mcg capsule 1 cap inhalation DAILY 09/23/22 03/01/23 01/27/23 History with inhalation device (Spiriva with HandiHaler) acetaminophen 500 mg tablet 500 mg PO Q8H PRN Pain 03/02/23 03/02/23 Unknown History gabapentin 400 mg tablet 400 mg PO BID 03/02/23 03/02/23 Unknown History ipratropium 18 mcg-albuterol 103 1 spray inhalation QID PRN Wheezing 03/02/23 03/02/23 Unknown History mcg/actuation aerosol inhaler ropinirole 1 mg tablet 1 mg PO BEDTIME 03/02/23 03/02/23 Unknown History Physical Exam Vital Signs and Narrative: Vital Signs: Last Vital Signs Temp 98.3 F 03/07/23 22:10 Pulse 87 03/07/23 23:26 Resp 18 03/07/23 23:26 BP 102/66 03/07/23 22:10 Pulse Ox 88 L 03/08/23 00:09 O2 Del Method Nasal Cannula 03/08/23 00:09 O2 Flow Rate 2 03/08/23 00:09 Oxygen Flow Rate 2 03/07/23 22:10 BMI result Body Mass Index 49.9 Middle-aged female lying in bed in mild distress on supplemental oxygen Neck supple, no JVD Regular rate and rhythm, S1-S2 heard Bilateral wheezing appreciated cough no crackles Abdomen soft nontender, no guarding, no rigidity Patient is awake, alert and oriented to self, place, time and person ; no focal motor deficit Psych: Normal mood No pedal edema Results Labs 03/07/23 22:33 03/07/23 22:33 Labs: Laboratory Results - last 24 hr 03/07/23 03/07/23 03/07/23 22:33 22:33 22:33 MCV 98.8 H MCH 31.5 MCHC 31.9 RDW 11.9 Plt Count 275 MPV 10.0 Immature Gran % (Auto) 0.3 Neut % (Auto) 75.0 H Lymph % (Auto) 16.3 L [place] % (Auto) 6.0 Eos % (Auto) 1.6 Baso % (Auto) 0.8 Lymph # (Auto) 1.5 [place] # (Auto) 0.5 Eos # (Auto) 0.1 Baso # (Auto) 0.1 Abs Immat Gran (auto) 0.03 Absolute Neuts (auto) 6.7 Absolute Nucleated RBC 0.000 Nucleated RBC % (auto) 0.0 Anion Gap 12 Estim Creat Clear Calc 109.6 Estimated GFR > 60 Random Glucose 119 H Calcium 10.3 H Troponin I High Sens < 2.7 B-Natriuretic Peptide COVID-19 (ENDY) COVID-19 Clin Com Influenza Type A (KELY) Influenza Type B (KELY) Influenza A & B Note 03/07/23 03/07/23 03/07/23 22:33 23:17 23:17 MCV MCH MCHC RDW Plt Count MPV Immature Gran % (Auto) Neut % (Auto) Lymph % (Auto) [place] % (Auto) Eos % (Auto) Baso % (Auto) Lymph # (Auto) [place] # (Auto) Eos # (Auto) Baso # (Auto) Abs Immat Gran (auto) Absolute Neuts (auto) Absolute Nucleated RBC Nucleated RBC % (auto) Anion Gap Estim Creat Clear Calc Estimated GFR Random Glucose Calcium Troponin I High Sens B-Natriuretic Peptide 13 COVID-19 (ENDY) Negative COVID-19 Clin Com See Note Influenza Type A (KELY) Negative Influenza Type B (KELY) Negative Influenza A & B Note See Note Imaging Radiologist's Impressions: Impressions Chest X-Ray 03/07/23 22:26 IMPRESSION: No acute cardiopulmonary process. Assessment and Plan (1) Hypoxia: Status: Resolved Plan This is a 53-year-old female with pertinent history of mood disorder, tobacco use disorder, COPD/asthma not on home oxygen, fibromyalgia who presents to the emergency department with complaints of dyspnea and wheezing. #.? Acute hypoxic respiratory failure due to asthma/ COPD exacerbation:? Initiating systemic steroids, scheduled and p.r.n. DuoNebs. Continue home inhaler. Initiating azithromycin for pleiotropic effect #.? Mood disorder: Continue home mood stabilizers #.? GERD on PPI #.? FABIOLA on CPAP #.? Obesity: Counseled regarding diet and exercise #. Tobacco use disorder: Offering nicotine patch in the hospital Med rec pending DVT prophylaxis: Lovenox Regular diet Full code Admit as inpatient and will require two night minimum hospital stay for supplemental oxygen Time Spent With Patient Time: Total time managing care of this patient today ____ minutes. Quality Stroke Does the patient have a stroke diagnosis?: No VTE Prior VTE?: No VTE Risk Level:: Medical - moderate - high VTE Device Contraindication: Treatment Not Indicated VTE Drug Contraindication: N/A - Med Ordered
[2023-03-08] MEDS: Azithromycin 500 MG in 0.9 % Sodium Chloride 250 ML 125 MG IV ×2 (02:05→22:52)
[2023-03-08 03:28] LABS: Amphetamine Screen Urine Not Detected (Not Detect); Barbiturates, Urine Not Detected (Not Detect); Benzodiazepines Screen Urine Not Detected (Not Detect); Cannabinoid Screen Urine Not Detected (Not Detect); Cocaine Screen Urine POSITIVE (Not Detect); Fentanyl, urine Not Detected (Not Detect); Opiate Screen Urine Not Detected (Not Detect); Phencyclidine Screen Urine Not Detected (Not Detect)
[2023-03-08 05:00] LABS: MANUAL DIFF FLAG NO
[2023-03-08 05:05] LABS: Basophils Absolute Auto 0.1 X10*3/uL (0.0-0.2); Basophils Percent Auto 0.8 % (0-2); Eosinophils Percent Auto 0.1 % (0-4); Hematocrit 41.7 % (37.0-47.0); Hemoglobin 12.9 g/dl (12.0-16.0); Imm Gran Abs Auto 0.07 X10*3/uL (0.00-0.03); Imm Gran Pct Auto 0.8 % (0.0-0.4); Lymphocytes Absolute Auto 0.7 X10*3/uL (1.2-4.9); Lymphocytes Percent Auto 7.8 % (20-40); Mean Corpuscular HGB Conc 30.9 g/dl (31.0-35.0); Mean Corpuscular Hemoglobin 31.5 pg (27.0-33.0); Mean Corpuscular Volume 101.7 fL (80.0-98.0); Mean Platelet Volume 11.3 fL (9.4-12.3); Monocytes Absolute Auto 0.1 X10*3/uL (0.1-1.2); Monocytes Percent Auto 0.9 % (2-11); Neutrophils Percent Auto 89.6 % (45-73); Platelet Count 240 X10*3/uL (160-400); Red Cell Distribution Width 11.9 % (11.0-16.0); White Blood Count 8.9 X10*3/uL (4.8-10.8)
[2023-03-08 05:23] LABS: Anion Gap 13 (12-20); Blood Urea Nitrogen 15 mg/dL (9-16); Carbon Dioxide 25 mmol/L (22-29); Chloride 104 mmol/L (96-108); Creatinine Clr Calc Pharmacy 97.8; Estimated Glomerular Filt Rate > 60; Glucose Random 184 mg/dL (60-115); Potassium 4.7 mmol/L (3.3-5.1); Sodium 137 mmol/L (135-145)
[2023-03-08] MEDS: 0.9 % Sodium Chloride Flush 3 ML SYRINGE IVFLUSH ×2 (07:37→17:27)
[2023-03-08] MEDS: Nicotine 14 MG PATCH.TD24 TRANSDERMA ×2 (07:38→20:12)
[2023-03-08] MEDS: methylPREDNISolone Sod Succ 40 MG/ML VIAL IVPUSH ×2 (07:38→20:08)
[2023-03-08] MEDS: Acetaminophen 325 MG TABLET 650 MG PO (07:39)
[2023-03-08] MEDS: Albuterol/Iprat 2.5/0.5MG 3 ML AMPUL.NEB INHALE ×4 (07:45→20:20)
--- NOTE | 2023-03-08 08:54 | PHA.MEDREC ---
Pharmacy Consult ? Medication Reconciliation Pharmacy has completed the medication reconciliation. Called for claim history and nurse Bakari. Patient gabapentin changed to 600 mg at bedtime. Patient started on a 5 day course of prednisone on 03/06 [facility]
--- NOTE | 2023-03-08 11:41 | HO.PM.IMPN ---
Subjective Subjective Date of Service: 03/08/23 Interval History: complaining of shortness of breath, cough and left shoulder discomfort, denies fever chills, tolerating diet no nausea, no vomiting, no abdominal pain or diarrhea, chest x-ray showed no acute infiltrate oxygenation stable on 2 L Review of Systems Review of Systems: Yes all other systems are reviewed and are negative Physical Exam Vital Signs: Vital Signs: Last Vital Signs Temp 97.0 F 03/08/23 08:00 Pulse 89 03/08/23 08:00 Resp 20 03/08/23 08:00 BP 136/78 03/08/23 04:00 Pulse Ox 95 03/08/23 08:00 O2 Del Method Room Air 03/08/23 08:00 O2 Flow Rate 2 03/08/23 00:32 Oxygen Flow Rate 2 03/07/23 22:10 BMI result Body Mass Index 45.5 Const: Other: General awake aler t x 3, in no acute distress.? left s houlder good range of motion , no te nderness to palpa tion, no redness Neck supple no JVD . CVS? regular rat e rhythm, anterior chest wall tender ness to palpation Respiratory lungs expiratory wheeze, no respiratory di stress, no crackle s, no use of acces charlie muscles Gastr ointestinal abdome n soft, non tender , bowel sounds aud ible,no guarding , no rigidity. Extr emities no edema. Neurology non foca l, moving all 4 ex tremity, speech cl ear. Skin no rash Psych appropriate affect Objective Data Active Medications Acetaminophen (Acetaminophen 325 Mg Tablet) 650 mg PO Q6H PRN PRN Reason: Pain, Mild (Pain Scale 1-3) Last Admin: 03/08/23 07:39 Dose: 650 mg Documented By: CLARE Albuterol Sulfate (Albuterol Sulfate 90 Mcg 8 Gm Inhaler) 2 puff INHALE Q4H PRN PRN Reason: shortness of breath or wheezing Albuterol/Ipratropium (Albuterol/Iprat 2.5/0.5mg 3 Ml Ampul.Neb) 3 ml INHALE RQ4H WHILE AWAKE TEAJ Last Admin: 03/08/23 07:45 Dose: 3 ml Documented By: TRISHA Albuterol/Ipratropium (Albuterol/Iprat 2.5/0.5mg 3 Ml Ampul.Neb) 3 ml INHALE RQ4H PRN PRN Reason: Wheezing Benztropine Mesylate (Benztropine Mesylate 1 Mg Tablet) 1 mg PO BID [facility] Bupropion HCl (Bupropion Hcl Xl 150 Mg Tab.Er.24h) 150 mg PO DAILY [facility] Clonidine HCl (Clonidine Hcl 0.2 Mg Tablet) 0.2 mg PO BEDTIME TEJA; Protocol Cyanocobalamin (Cyanocobalamin (Vitamin B-12) 100 Mcg Tablet) 100 mcg PO DAILY [facility] Enoxaparin Sodium (Enoxaparin Sodium 40 Mg/0.4 Ml Syringe) 40 mg SUBCUT Q12H [facility] Last Admin: 03/08/23 07:38 Dose: Not Given Documented By: CLARE Non-Admin Reason: Patient Refused Ferrous Sulfate (Ferrous Sulfate 324 Mg Tablet.) 324 mg PO DAILY [facility] Gabapentin (Gabapentin 600 Mg Tablet) 600 mg PO BEDTIME [facility] Guaifenesin/Dextromethorphan (Guaifenesin Dm 100/10/5 Ml 5 Ml Syrup) 10 ml PO TID [facility] Azithromycin 500 mg/ Sodium (Chloride) 250 mls @ 125 mls/hr IV 2200 [facility] Last Infusion: 03/08/23 04:19 Dose: 0 mls/hr Documented By: EVAN Protection Carbonate (Protection Carbonate 300 Mg Capsule) 600 mg PO BID [facility] Melatonin (Melatonin 3 Mg Tablet) 6 mg PO BEDTIME PRN PRN Reason: Insomnia Methylprednisolone Sodium Succinate (Methylprednisolone Sod Succ 40 Mg/Ml Vial) 40 mg IVPUSH Q12H [facility] Last Admin: 03/08/23 07:38 Dose: 40 mg Documented By: CLARE Nicotine (Nicotine 14 Mg Patch.Td24) 14 mg TRANSDERMA BEDTIME [facility] Last Admin: 03/08/23 07:38 Dose: 14 mg Documented By: CLARE Olanzapine (Olanzapine 10 Mg Tablet) 10 mg PO BEDTIME [facility] Omeprazole (Omeprazole 20 Mg Capsule.) 20 mg PO DAILY@0630 [facility] Ondansetron HCl (Ondansetron Hcl 4 Mg/2 Ml Vial) 4 mg IVPUSH Q8H PRN PRN Reason: Nausea and Vomiting Oxcarbazepine (Oxcarbazepine 150 Mg Tablet) 150 mg PO BID [facility] Pharmacy Consult (Consult Rx Perform Med Rec) 1 each MISCELLANE ONCE PRN PRN Reason: Consult order Ropinirole HCl (Ropinirole Hcl 1 Mg Tablet) 1 mg PO BEDTIME [facility] Sertraline HCl (Sertraline Hcl 50 Mg Tablet) 50 mg PO DAILY [facility] Sodium Chloride (0.9 % Sodium Chloride Flush 3 Ml Syringe) 3 ml IVFLUSH QSHIFT [facility] Last Admin: 03/08/23 07:37 Dose: 3 ml Documented By: CLARE Tiotropium [place] (Tiotropium [place] 18 Mcg Cap.W.Dev) 1 puff INHALE RDAILY [facility] Valacyclovir HCl (Valacyclovir Hcl 1,000 Mg Tablet) 1,000 mg PO BID [facility] Vitamin D (Cholecalciferol (Vitamin D3) 25 Mcg Tablet) 25 mcg PO DAILY [facility] Labs 03/08/23 04:08 03/08/23 04:08 Labs: Laboratory Results - last 24 hr 03/07/23 03/07/23 03/07/23 22:33 22:33 22:33 MCV 98.8 H MCH 31.5 MCHC 31.9 RDW 11.9 Plt Count 275 MPV 10.0 Immature Gran % (Auto) 0.3 Neut % (Auto) 75.0 H Lymph % (Auto) 16.3 L [place] % (Auto) 6.0 Eos % (Auto) 1.6 Baso % (Auto) 0.8 Lymph # (Auto) 1.5 [place] # (Auto) 0.5 Eos # (Auto) 0.1 Baso # (Auto) 0.1 Abs Immat Gran (auto) 0.03 Absolute Neuts (auto) 6.7 Absolute Nucleated RBC 0.000 Nucleated RBC % (auto) 0.0 Anion Gap 12 Estim Creat Clear Calc 109.6 Estimated GFR > 60 Random Glucose 119 H Calcium 10.3 H Troponin I High Sens < 2.7 B-Natriuretic Peptide Urine Opiates Screen Urine Fentanyl Screen Ur Barbiturates Screen Ur Phencyclidine Scrn Ur Amphetamines Screen U Benzodiazepines Scrn Urine Cocaine Screen U Marijuana (THC) Screen COVID-19 (ENDY) COVID-19 Clin Com Influenza Type A (KELY) Influenza Type B (EKLY) Influenza A & B Note 03/07/23 03/07/23 03/07/23 22:33 23:17 23:17 MCV MCH MCHC RDW Plt Count MPV Immature Gran % (Auto) Neut % (Auto) Lymph % (Auto) [place] % (Auto) Eos % (Auto) Baso % (Auto) Lymph # (Auto) [place] # (Auto) Eos # (Auto) Baso # (Auto) Abs Immat Gran (auto) Absolute Neuts (auto) Absolute Nucleated RBC Nucleated RBC % (auto) Anion Gap Estim Creat Clear Calc Estimated GFR Random Glucose Calcium Troponin I High Sens B-Natriuretic Peptide 13 Urine Opiates Screen Urine Fentanyl Screen Ur Barbiturates Screen Ur Phencyclidine Scrn Ur Amphetamines Screen U Benzodiazepines Scrn Urine Cocaine Screen U Marijuana (THC) Screen COVID-19 (ENDY) Negative COVID-19 Clin Com See Note Influenza Type A (KELY) Negative Influenza Type B (KELY) Negative Influenza A & B Note See Note 03/08/23 03/08/23 03/08/23 02:35 04:08 04:08 MCV 101.7 H MCH 31.5 MCHC 30.9 L RDW 11.9 Plt Count 240 MPV 11.3 Immature Gran % (Auto) 0.8 H Neut % (Auto) 89.6 H Lymph % (Auto) 7.8 L [place] % (Auto) 0.9 L Eos % (Auto) 0.1 Baso % (Auto) 0.8 Lymph # (Auto) 0.7 L [place] # (Auto) 0.1 Eos # (Auto) 0.0 Baso # (Auto) 0.1 Abs Immat Gran (auto) 0.07 H Absolute Neuts (auto) 8.0 Absolute Nucleated RBC 0.000 Nucleated RBC % (auto) 0.0 Anion Gap 13 Estim Creat Clear Calc 97.8 Estimated GFR > 60 Random Glucose 184 H Calcium 10.0 Troponin I High Sens B-Natriuretic Peptide Urine Opiates Screen Not Detected Urine Fentanyl Screen Not Detected Ur Barbiturates Screen Not Detected Ur Phencyclidine Scrn Not Detected Ur Amphetamines Screen Not Detected U Benzodiazepines Scrn Not Detected Urine Cocaine Screen POSITIVE H U Marijuana (THC) Screen Not Detected COVID-19 (ENDY) COVID-19 Clin Com Influenza Type A (KELY) Influenza Type B (KELY) Influenza A & B Note Assessment and Plan (1) COPD (chronic obstructive pulmonary disease): Status: Acute (2) Tobacco use disorder: Status: Acute Plan 53-year-old female with pertinent history of mood disorder, tobacco use disorder, COPD/asthma not on home oxygen, fibromyalgia who presents to the emergency department with complaints of dyspnea and wheezing. #.? Acute hypoxic respiratory failure due to asthma/ COPD exacerbation:? persistent shortness of breath and, chest x-ray showed no infiltrate, continue IV steroids, scheduled and p.r.n. DuoNebs. azithromycin for anti-inflammatory affect,Continue home inhaler.? wean oxygen as tolerated not on home oxygen. #.? Mood disorder: Continue home mood stabilizers. #.? GERD continue Prilosec #.? FABIOLA on CPAP, due to concern for multiple admissions for suicidal ideation respiratory therapist recommending sitter at night. #.? Obesity: Counseled regarding diet and exercise #.? Tobacco use disorder:? nicotine patch , counseling done DVT prophylaxis: Lovenox Full code continue inpatient hospitalization for treatment of COPD exacerbation requiring supplemental oxygen. Time Spent With Patient Time: Total time managing care of this patient today ____ minutes. Quality Stroke Does the patient have a stroke diagnosis?: No VTE Prior VTE?: No VTE Risk Level:: Medical - moderate - high VTE Device Contraindication: Treatment Not Indicated VTE Drug Contraindication: N/A - Med Ordered
--- NOTE | 2023-03-08 12:00 | MHC.CM.PN ---
pt lives alone has a matchbook assembler and a lockbox that [facility] 2 x daily pt will need transportaion home when dcd additionally pt has amtherapuist and psychaiatrist thru [facility] the homeless
[2023-03-08] MEDS: buPROPion HCl XL 150 MG TAB.ER.24H PO (12:10)
[2023-03-08] MEDS: guaiFENesin DM 100/10/5 ML 5 ML SYRUP 10 ML PO ×2 (14:35→20:10)
[2023-03-08] MEDS: Gabapentin 600 MG TABLET PO (20:11)
[2023-03-08] MEDS: valACYclovir HCL 1,000 MG TABLET 1000 MG PO (20:11)
[2023-03-08] MEDS: Lithium Carbonate 300 MG CAPSULE 600 MG PO (20:11)
[2023-03-08] MEDS: OLANZapine 10 MG TABLET PO (20:11)
[2023-03-08] MEDS: cloNIDine HCL 0.2 MG TABLET PO (20:11)
[2023-03-08] MEDS: rOPINIRole HCL 1 MG TABLET PO (20:11)
[2023-03-08] MEDS: Benztropine Mesylate 1 MG TABLET PO (20:11)
[2023-03-08] MEDS: OXcarbazepine 150 MG TABLET PO (20:12)
[2023-03-09] VITALS (10 sets, daily range): BP systolic 121–157; BP diastolic 60–93; PULSE 66–85; RESP 16–20; TEMP 36.2–36.8; O2SAT 88–98
[2023-03-09] MEDS: Omeprazole 20 MG CAPSULE.DR PO (06:17)
[2023-03-09] MEDS: Albuterol/Iprat 2.5/0.5MG 3 ML AMPUL.NEB INHALE ×4 (07:48→19:48)
[2023-03-09 07:59] LABS: Lithium 0.76 mmol/L (0.60-1.20)
[2023-03-09] MEDS: buPROPion HCl XL 150 MG TAB.ER.24H PO (08:01)
[2023-03-09] MEDS: Sertraline HCL 50 MG TABLET PO (08:01)
[2023-03-09] MEDS: Cholecalciferol (Vitamin D3) 25 MCG TABLET PO (08:01)
[2023-03-09] MEDS: OXcarbazepine 150 MG TABLET PO ×2 (08:01→20:32)
[2023-03-09] MEDS: Lithium Carbonate 300 MG CAPSULE 600 MG PO ×2 (08:01→20:31)
[2023-03-09] MEDS: Benztropine Mesylate 1 MG TABLET PO ×2 (08:01→20:32)
[2023-03-09] MEDS: Ferrous Sulfate 324 MG TABLET.DR PO (08:01)
[2023-03-09] MEDS: valACYclovir HCL 1,000 MG TABLET 1000 MG PO ×2 (08:01→20:32)
[2023-03-09] MEDS: Cyanocobalamin (Vitamin B-12) 100 MCG TABLET PO (08:01)
[2023-03-09] MEDS: Enoxaparin Sodium 40 MG/0.4 ML SYRINGE SUBCUT (08:02)
[2023-03-09] MEDS: 0.9 % Sodium Chloride Flush 3 ML SYRINGE IVFLUSH ×3 (08:02→20:32)
[2023-03-09] MEDS: guaiFENesin DM 100/10/5 ML 5 ML SYRUP 10 ML PO (08:02)
[2023-03-09] MEDS: methylPREDNISolone Sod Succ 40 MG/ML VIAL IVPUSH ×2 (08:02→20:31)
[2023-03-09] MEDS: Nicotine 14 MG PATCH.TD24 TRANSDERMA (09:21)
--- NOTE | 2023-03-09 11:06 | HO.PM.IMPN ---
Subjective Subjective Date of Service: 03/09/23 Interval History: complaining of persistent shortness of breath, chest tightness, and cough, no significant improvement with cough medication, denies fever ,chills, has been mostly in bed, O2 88% on room air, placed back on oxygen, tolerating diet no nausea, no vomiting, no abdominal pain, no diarrhea, no urinary symptoms no other acute issues overnight. Tolerated CPAP. Review of Systems Review of Systems: Yes all other systems are reviewed and are negative Physical Exam Vital Signs: Vital Signs: Last Vital Signs Temp 97.2 F 03/09/23 07:16 Pulse 66 03/09/23 07:49 Resp 20 03/09/23 10:44 BP 125/68 03/09/23 07:16 Pulse Ox 88 L 03/09/23 10:44 O2 Del Method Room Air 03/09/23 10:44 O2 Flow Rate 3 03/09/23 07:16 Oxygen Flow Rate 2 03/07/23 22:10 BMI result Body Mass Index 45.5 Const: Other: General patient resting comfortably in no acute distress. Neck is supple no JVD. CVS regular rate rhythm, Respiratory lungs bilateral expiratory wheeze, diminished breath sounds, no use of accessory muscles, no respiratory distress. Gastrointestinal abdomen soft, nontender, bowel sounds audible, no no guarding , no rigidity. Extremities no clubbing cyanosis or edema. Neuro nonfocal patient moving all 4 extremity speech clear. Skin no rash Psych appropriate affect Objective Data Active Medications Acetaminophen (Acetaminophen 325 Mg Tablet) 650 mg PO Q6H PRN PRN Reason: Pain, Mild (Pain Scale 1-3) Last Admin: 03/08/23 07:39 Dose: 650 mg Documented By: CLARE Albuterol Sulfate (Albuterol Sulfate 90 Mcg 8 Gm Inhaler) 2 puff INHALE Q4H PRN PRN Reason: shortness of breath or wheezing Albuterol/Ipratropium (Albuterol/Iprat 2.5/0.5mg 3 Ml Ampul.Neb) 3 ml INHALE RQ4H WHILE AWAKE TEJA Last Admin: 03/09/23 07:48 Dose: 3 ml Documented By: TRISHA Albuterol/Ipratropium (Albuterol/Iprat 2.5/0.5mg 3 Ml Ampul.Neb) 3 ml INHALE RQ4H PRN PRN Reason: Wheezing Benztropine Mesylate (Benztropine Mesylate 1 Mg Tablet) 1 mg PO BID [facility] Last Admin: 03/09/23 08:01 Dose: 1 mg Documented By: RAFFY Bupropion HCl (Bupropion Hcl Xl 150 Mg Tab.Er.24h) 150 mg PO DAILY [facility] Last Admin: 03/09/23 08:01 Dose: 150 mg Documented By: RAFFY Clonidine HCl (Clonidine Hcl 0.2 Mg Tablet) 0.2 mg PO BEDTIME [facility]; Protocol Last Admin: 03/08/23 20:11 Dose: 0.2 mg Documented By: EVAN Cyanocobalamin (Cyanocobalamin (Vitamin B-12) 100 Mcg Tablet) 100 mcg PO DAILY [facility] Last Admin: 03/09/23 08:01 Dose: 100 mcg Documented By: RAFFY Enoxaparin Sodium (Enoxaparin Sodium 40 Mg/0.4 Ml Syringe) 40 mg SUBCUT Q12H [facility] Last Admin: 03/09/23 08:02 Dose: 40 mg Documented By: RAFFY Ferrous Sulfate (Ferrous Sulfate 324 Mg Tablet.Dr) 324 mg PO DAILY [facility] Last Admin: 03/09/23 08:01 Dose: 324 mg Documented By: RAFFY Gabapentin (Gabapentin 600 Mg Tablet) 600 mg PO BEDTIME [facility] Last Admin: 03/08/23 20:11 Dose: 600 mg Documented By: EVAN Guaifenesin/Dextromethorphan (Guaifenesin Dm 100/10/5 Ml 5 Ml Syrup) 10 ml PO TID [facility] Last Admin: 03/09/23 08:02 Dose: 10 ml Documented By: RAFFY Azithromycin 500 mg/ Sodium (Chloride) 250 mls @ 125 mls/hr IV 2200 [facility] Last Infusion: 03/09/23 01:00 Dose: 0 mls/hr Documented By: KRISTIN [place] Carbonate ([place] Carbonate 300 Mg Capsule) 600 mg PO BID [facility] Last Admin: 03/09/23 08:01 Dose: 600 mg Documented By: RAFFY Melatonin (Melatonin 3 Mg Tablet) 6 mg PO BEDTIME PRN PRN Reason: Insomnia Methylprednisolone Sodium Succinate (Methylprednisolone Sod Succ 40 Mg/Ml Vial) 40 mg IVPUSH Q12H [facility] Last Admin: 03/09/23 08:02 Dose: 40 mg Documented By: RAFFY Nicotine (Nicotine 14 Mg Patch.Td24) 14 mg TRANSDERMA DAILY [facility] Last Admin: 03/09/23 09:21 Dose: 14 mg Documented By: RAFFY Olanzapine (Olanzapine 10 Mg Tablet) 10 mg PO BEDTIME [facility] Last Admin: 03/08/23 20:11 Dose: 10 mg Documented By: EVAN Omeprazole (Omeprazole 20 Mg Capsule.Dr) 20 mg PO DAILY@0630 [facility] Last Admin: 03/09/23 06:17 Dose: 20 mg Documented By: KRISTIN Ondansetron HCl (Ondansetron Hcl 4 Mg/2 Ml Vial) 4 mg IVPUSH Q8H PRN PRN Reason: Nausea and Vomiting Oxcarbazepine (Oxcarbazepine 150 Mg Tablet) 150 mg PO BID [facility] Last Admin: 03/09/23 08:01 Dose: 150 mg Documented By: RAFFY Pharmacy Consult (Consult Rx Perform Med Rec) 1 each MISCELLANE ONCE PRN PRN Reason: Consult order Ropinirole HCl (Ropinirole Hcl 1 Mg Tablet) 1 mg PO BEDTIME [facility] Last Admin: 03/08/23 20:11 Dose: 1 mg Documented By: EVAN Sertraline HCl (Sertraline Hcl 50 Mg Tablet) 50 mg PO DAILY [facility] Last Admin: 03/09/23 08:01 Dose: 50 mg Documented By: RAFFY Sodium Chloride (0.9 % Sodium Chloride Flush 3 Ml Syringe) 3 ml IVFLUSH QSHIFT [facility] Last Admin: 03/09/23 08:02 Dose: 3 ml Documented By: RAFFY Tiotropium [place] (Tiotropium [place] 18 Mcg Cap.W.Dev) 1 puff INHALE RDAILY [facility] Last Admin: 03/09/23 07:49 Dose: Not Given Documented By: TRISHA Non-Admin Reason: pharmacy called Valacyclovir HCl (Valacyclovir Hcl 1,000 Mg Tablet) 1,000 mg PO BID [facility] Last Admin: 03/09/23 08:01 Dose: 1,000 mg Documented By: RAFFY Vitamin D (Cholecalciferol (Vitamin D3) 25 Mcg Tablet) 25 mcg PO DAILY [facility] Last Admin: 03/09/23 08:01 Dose: 25 mcg Documented By: HO.YOUB Labs 03/08/23 04:08 03/08/23 04:08 Labs: Laboratory Results - last 24 hr 03/09/23 07:44 [place] 0.76 Assessment and Plan (1) COPD (chronic obstructive pulmonary disease): Status: Acute (2) Tobacco use disorder: Status: Acute Plan 53-year-old female with pertinent history of mood disorder, tobacco use disorder, COPD/asthma not on home oxygen, fibromyalgia who presents to the emergency department with complaints of dyspnea and wheezing. #.? Acute hypoxic respiratory failure due to asthma/ COPD exacerbation:? slowly improving,persistent shortness of breath and, chest x-ray showed no infiltrate, continue IV steroids, scheduled and p.r.n. DuoNebs. azithromycin for anti-inflammatory affect,Continue home inhaler.? wean oxygen as tolerated , not on home oxygen. less encourage incentive spirometry schedule cough medication. #.? Mood disorder: Continue home mood stabilizers. #.? GERD continue Prilosec #.? FABIOLA on CPAP, due to concern for multiple admissions for suicidal ideation use sitter/camera #.? Obesity: Counseled regarding diet and exercise #.? Tobacco use disorder:? nicotine patch , counseling done DVT prophylaxis: Lovenox Full code continue inpatient hospitalization for treatment of COPD exacerbation requiring supplemental oxygen. Time Spent With Patient Time: Total time managing care of this patient today ____ minutes. Quality Stroke Does the patient have a stroke diagnosis?: No VTE Prior VTE?: No VTE Risk Level:: Medical - moderate - high VTE Device Contraindication: Treatment Not Indicated VTE Drug Contraindication: N/A - Med Ordered
[2023-03-09] MEDS: guaiFENesin DM 200/20/10 ML 10 ML SYRUP PO ×2 (12:59→18:40)
[2023-03-09] MEDS: Benzonatate 100 MG CAPSULE 200 MG PO ×2 (14:35→20:31)
[2023-03-09] MEDS: rOPINIRole HCL 1 MG TABLET PO (20:31)
[2023-03-09] MEDS: cloNIDine HCL 0.2 MG TABLET PO (20:31)
[2023-03-09] MEDS: OLANZapine 10 MG TABLET PO (20:32)
[2023-03-09] MEDS: Gabapentin 600 MG TABLET PO (20:32)
[2023-03-09] MEDS: Azithromycin 500 MG in 0.9 % Sodium Chloride 250 ML 125 MG IV (21:50)
[2023-03-09] MEDS: Acetaminophen 325 MG TABLET 650 MG PO (21:50)
[2023-03-10 00:06] VITALS: PULSE 68; O2SAT 92
--- NOTE | 2023-03-10 02:03 | PC.NURSE ---
Pt alert and oriented with excellent po intake, still with occasional dry and hacking non prod cough, denies any SOB, tolerating O2 at 2L/min via NC then shifted to CPAP at bedtime by RT and tolertated. At 2129, pt c/o of left sided chest pain 08/09 ,while she was playing computer games in her Ipad, that is worse with cough, deep breathing and when pressure is applied, Vitals are good, Dr. Chauhan was made aware with no further order, Tylenol po 650 mg given, then pt requested some coffee and noted asleep when revisited.
[2023-03-10 03:17] VITALS: BP 138/85; PULSE 59; RESP 18; TEMP 36.2; O2SAT 95
[2023-03-10] MEDS: guaiFENesin DM 200/20/10 ML 10 ML SYRUP PO (06:14)
[2023-03-10] MEDS: Omeprazole 20 MG CAPSULE.DR PO (06:14)
[2023-03-10] MEDS: valACYclovir HCL 1,000 MG TABLET 1000 MG PO (07:31)
[2023-03-10] MEDS: Ferrous Sulfate 324 MG TABLET.DR PO (07:31)
[2023-03-10] MEDS: buPROPion HCl XL 150 MG TAB.ER.24H PO (07:32)
[2023-03-10] MEDS: Cholecalciferol (Vitamin D3) 25 MCG TABLET PO (07:32)
[2023-03-10] MEDS: OXcarbazepine 150 MG TABLET PO (07:32)
[2023-03-10] MEDS: Sertraline HCL 50 MG TABLET PO (07:32)
[2023-03-10] MEDS: Cyanocobalamin (Vitamin B-12) 100 MCG TABLET PO (07:32)
[2023-03-10 07:33] VITALS: BP 140/84; PULSE 71; RESP 18; TEMP 36.2; O2SAT 97
[2023-03-10] MEDS: Benztropine Mesylate 1 MG TABLET PO (07:33)
[2023-03-10] MEDS: Lithium Carbonate 300 MG CAPSULE 600 MG PO (07:33)
[2023-03-10] MEDS: methylPREDNISolone Sod Succ 40 MG/ML VIAL IVPUSH (07:34)
[2023-03-10] MEDS: Enoxaparin Sodium 40 MG/0.4 ML SYRINGE SUBCUT (07:35)
[2023-03-10] MEDS: 0.9 % Sodium Chloride Flush 3 ML SYRINGE IVFLUSH (07:35)
[2023-03-10] MEDS: Nicotine 14 MG PATCH.TD24 TRANSDERMA (07:36)
[2023-03-10] MEDS: Benzonatate 100 MG CAPSULE 200 MG PO (07:40)
[2023-03-10] MEDS: Albuterol/Iprat 2.5/0.5MG 3 ML AMPUL.NEB INHALE (08:32)
[2023-03-10 08:36] VITALS: PULSE 83; RESP 18; O2SAT 96
--- NOTE | 2023-03-10 10:42 | P.DS_ITS ---
DS: Providers Provider Date of Service: 03/10/23 Date of admission: 03/08/23 00:13 Primary care physician: Unknown Physician DS: Diagnosis Discharge Diagnosis (1) COPD (chronic obstructive pulmonary disease): Status: Acute (2) Tobacco use disorder: Status: Acute DS: Summary Hospital Course Hospital Course: Date of Service: 03/08/23 Chief Complaint: Dyspnea This is a 53-year-old female with pertinent history of mood disorder, tobacco use disorder, COPD/asthma not on home oxygen, fibromyalgia who presents to the emergency department with complaints of dyspnea and wheezing.? Patient states she started having dyspnea, worse with exertion about 5-6 days prior to presentation.? It has been progressive and associated with wheezing.? Patient used home inhaler without any relief.? She denies fever, chills, chest discomfort, palpitations, abdominal pain, changes in bowel habits.? Patient also complains of cough.? Continues to smoke 2 cigarettes per day. In the emergency department, patient was found to be hypoxemic requiring 2 L supplemental oxygen. hospital course: 53-year-old female with pertinent history of mood disorder, tobacco use disorder, COPD/asthma not on home oxygen, fibromyalgia who presents to the [facility] department with complaints of dyspnea and wheezing. #.? Acute hypoxic respiratory failure due to asthma/ COPD exacerbation, patient treated with IV Solu Medrol, scheduled and as needed updraft treatment and azithromycin patient responded well to above treatment, symptoms of shortness of breath and cough have resolved, patient feels stable to be discharged home, chest x-ray showed no infiltrate, as per patient she has steroids, inhalers, and cough medication at home, recommended to use prednisone daily for 5 days and use cough medication as needed she has been strongly advised to abstain from smoking, her oxygenation is stable on room air #.? Mood disorder: Continue home mood stabilizers. #.? GERD? continue Prilosec #.? FABIOLA continue CPAP. #.? Obesity: Counseled regarding diet and exercise. #.? Tobacco use disorder:? nicotine patch , counseling? done Time Spent with Patient Time attestation: Total time managing care of this patient today ____ minutes. Discharge coordination time: Greater than 30 minutes Quality: Safe Use of Opioids Does Pt have an Active Cancer Diagnosis on the Problem List?: No Quality: Stroke Does the patient have a stroke diagnosis?: No Physical Exam Vital Signs: Vital Signs: Last Vital Signs Temp 97.1 F 03/10/23 07:33 Pulse 83 03/10/23 08:36 Resp 18 03/10/23 08:36 BP 140/84 H 03/10/23 07:33 Pulse Ox 97 03/10/23 07:33 O2 Del Method Nasal Cannula 03/10/23 07:33 O2 Flow Rate 2 03/10/23 07:33 Oxygen Flow Rate 2 03/07/23 22:10 BMI result Body Mass Index 45.5 Const: Other: General patient re sting comfortably in no acute distre ss.? Neck is suppl e no JVD. CVS? reg ular rate rhythm, Respiratory? lungs clear to auscult ation, no use of a ccessory muscles, no respiratory dis tress. Gastrointes tinal abdomen soft , nontender, bowel sounds audible, n o no guarding , no rigidity. Extremi ties no edema. Makenzie ro nonfocal , movi ng all 4 extremity speech clear. Ski n no rash ?Psych a ppropriate affect DS: Data Data Completed and Pending Completed studies during hospitalization [Text1]: Procedures Assistance with Respiratory Ventilation, Less than 24 Consecutive Hours, Continuous Positive Airway Pressure (12/28/22) Drainage of Left Parotid Gland, Percutaneous Approach, Diagnostic (11/09/21) Drainage of Neck, Percutaneous Approach, Diagnostic (03/17/22) Excision of Left Parotid Gland, Percutaneous Approach, Diagnostic (03/17/22) Introduction of Remdesivir Anti-infective into Peripheral Vein, Percutaneous Approach, [employer] (06/01/22) Discharge Plan Discharge Anticipated Discharge Date/Time: 03/10/23 10:36 Patient Disposition: Home Health Service Discharge Diagnosis: 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 tobacco use disorder Referrals: Physician,Unknown J [Primary Care Provider] - 1 Week Discharge Medications: New nicotine 14 mg/24 hr Patch 24 Hour 14 mg transdermal DAILY Qty: 30 0RF Continued albuterol sulfate 90 mcg/actuation HFA aerosol inhaler 2 puff inhalation Q4-6H PRN (Reason: shortness of breath or wheezing) 30 Days Qty: 1 0RF ferrous sulfate 324 mg (65 mg iron) tablet,delayed release (DR/EC) 324 mg PO DAILY 30 Days Qty: 30 0RF oxcarbazepine 150 mg tablet 1 tab PO BID valacyclovir 1 gram tablet 1 tab PO BID benztropine 1 mg tablet 1 tab PO BID omeprazole 20 mg capsule,delayed release(DR/EC) 1 cap PO DAILY@0630 sertraline 50 mg tablet 50 mg PO DAILY cholecalciferol (vitamin D3) 25 mcg (1,000 unit) tablet 1 tab PO DAILY lithium carbonate 600 mg capsule 1 cap PO BID cyanocobalamin (vitamin B-12) 100 mcg tablet 1 tab PO DAILY olanzapine 10 mg tablet 1 tab PO BEDTIME Spiriva with HandiHaler 18 mcg capsule, w/inhalation device 1 cap inhalation DAILY clonidine HCl 0.1 mg Tablet 0.2 mg PO BEDTIME bupropion HCl 150 mg Tablet Extended Release 24 Hr 150 mg PO QAM ropinirole 1 mg Tablet 1 mg PO BEDTIME Rx Instructions: administer 1-3 hours before bedtime acetaminophen 500 mg Tablet 500 mg PO Q8H PRN (Reason: Pain) ipratropium-albuterol 18-103 mcg/actuation Aerosol 1 spray INHALATION QID PRN (Reason: Wheezing) gabapentin 600 mg tablet 600 mg PO BEDTIME prednisone 20 mg Tablet 40 mg PO DAILY Rx Instructions: FOR 5 DAYS STARTING 03/06 Discharge Orders: Discharge Order (Routine); Ordered 03/10/23 Ordered By: Eric Cavazos Diet: Advance to usual diet Activity on Discharge: As tolerated Stand Alone Forms: Patient Portal Discharge page Care Plan Goals: hypoxia resolved continue home inhalers, patient has cough medication and prednisone ,recommended to use prednisone for 5 days only Health Concerns: tobacco use disorder strongly recommend to abstain from smoking /FABIOLA continue CPAP at night Plan of Treatment: outpatient follow-up with primary care physician Assessment: as above
--- NOTE | 2023-03-10 10:57 | MHC.CM.PN ---
PT WILL DC HOME WITH RESUMPTION OF RADIANCE [facility] SERVICES FOR DAILY MED ADMINISTRATION RADIANCE INFORMED OF DC VIA [facility], [facility] SENT PT WILL NEED [facility] TRANSPORT WHICH HAS BEEN REQUESTED FOR 1130
--- NOTE | 2023-03-10 11:35 | P.CDIM_ITS ---
PROVIDER RESPONSE TEXT: To clarify, the appropriate diagnosis supported by the clinical indicators: Mild persistent: acute exac QUERY TEXT: PHYSICIAN'S DOCUMENTATION REQUEST Date of Query: 03/09/2023 07:06 AM EDT Patient Name: Bhavana Garza Admit Date: 03/08/2023 Dear Eric Cavazos, A review of the medical record indicates additional documentation may be needed. Please review below and update the documentation accordingly. The diagnosis of asthma was documented in the record on 03/08/23. Additional clinical indicators from the record include: Per Hospitalist Progress Note: asthma/ COPD exacerbation: persistent shortness of breath and, chest x-ray showed no infiltrate, continue IV steroids, scheduled and p.r.n. DuoNebs. azithromycin for anti-inflammatory affect, Continue home inhaler. wean oxygen as tolerated not on gregorio e oxygen Based on the above, please clarify in the Progress Notes further specificity regarding the type and a cuity of the asthma: Mild intermittent Please specify if with or without acute exacerbation or status asthmaticus Mild persistent Please specify if with or without acute exacerbation or status asthmaticus Moderate persistent Please specify if with or without acute exacerbation or status asthmaticus Severe persistent Please specify if with or without acute exacerbation or status asthmaticus Exercise induced Please specify if with or without acute exacerbation or status asthmaticus Chronic obstructive asthma and indicate if with acute lower respiratory infection Please specify if with or without acute exacerbation or status asthmaticus Other (explain) Clinically unable to determine (explain) Thank you, Astrid Byrne RN Use of terms such as suspected, likely, concern for, or probable (associated with a specific diagnosi s that is being evaluated, monitored, or treated as if it exists) are acceptable and can be coded in the inpatient se tting, when documented at the time of discharge. Please use your independent medical judgment in providing your response. THIS QUERY IS PART OF THE PERMANENT MEDICAL RECORD
== END 2023-03-10 11:30 | disposition home health service (06) | DRG 140 ==
LOC: HO.ED 03-08 00:17 → HO.EDOVER 03-08 00:28 → HO.S3 03-08 00:44
PROVIDERS: Admitting Provider Student in an Organized Health Care Education/Training Program; Emergency Provider Emergency Medicine Emergency Medical Services; Visit Provider Hospitalist
DX: J44.1 Chronic obstructive pulmonary disease with (acute) exacerbation (principal); J96.01 Acute respiratory failure with hypoxia; J45.31 Mild persistent asthma with (acute) exacerbation; E66.9 Obesity, unspecified; Z68.42 Body mass index [BMI] 45.0-49.9, adult; F31.9 Bipolar disorder, unspecified; G47.33 Obstructive sleep apnea (adult) (pediatric); K21.9 Gastro-esophageal reflux disease without esophagitis; F17.210 Nicotine dependence, cigarettes, uncomplicated; M79.7 Fibromyalgia; Z20.822 Contact with and (suspected) exposure to COVID-19; Z71.6 Tobacco abuse counseling; Z88.1 Allergy status to other antibiotic agents; Z79.52 Long term (current) use of systemic steroids; Z79.899 Other long term (current) drug therapy
CPT/HCPCS: 36415; 71045; 80048; 80178; 80307; 83880; 84484; 85025; 87502; 87635; 93005; 94640; 94660; 99285; J0456; J1650; J2920; J2930; J3475

== ENCOUNTER 2023-03-15 17:31 | Inpatient (IN) | payer MEDICAID, OTHER, SELFPAY ==
[2023-03-15 17:35] VITALS: BP 140/86; BP 141/76; PULSE 92; PULSE 97; RESP 18; TEMP 36.9; O2SAT 94; O2SAT 98; BMI 32.3
--- NOTE | 2023-03-15 17:43 | ED.PSYCH ---
HPI - Psych General Chief Complaint: Psychiatric Symptoms Stated Complaint: SI Time Seen by Provider: 03/15/23 17:34 Source: patient Mode of arrival: EMS Limitations: no limitations History of Present Illness HPI Narrative: Patient comes to the emergency room from home. Patient states that there are a lot of anniversaries that make the patient feel depressed, patient states that she started feeling suicidal. Denies homicidal ideation. Related Data Home Medications Medication Instructions Recorded Confirmed benztropine 1 mg tablet 1 tab PO BID 07/23/22 03/08/23 cholecalciferol (vitamin D3) 25 1 tab PO DAILY 07/23/22 03/08/23 mcg (1,000 unit) tablet omeprazole 20 mg capsule,delayed 1 cap PO DAILY@0630 07/23/22 03/08/23 release oxcarbazepine 150 mg tablet 1 tab PO BID 07/23/22 03/08/23 sertraline 50 mg tablet 50 mg PO DAILY 07/23/22 03/08/23 valacyclovir 1 gram tablet 1 tab PO BID 07/23/22 03/08/23 lithium carbonate 600 mg capsule 1 cap PO BID 07/24/22 03/08/23 cyanocobalamin (vitamin B-12) 100 1 tab PO DAILY 08/06/22 03/08/23 mcg tablet olanzapine 10 mg tablet 1 tab PO BEDTIME 08/06/22 03/08/23 bupropion HCl 150 mg 24 hr tablet, 150 mg PO QAM 09/23/22 03/08/23 extended release clonidine HCl 0.1 mg tablet 0.2 mg PO BEDTIME 09/23/22 03/08/23 tiotropium bromide 18 mcg capsule 1 cap inhalation DAILY 09/23/22 03/08/23 with inhalation device (Spiriva with HandiHaler) acetaminophen 500 mg tablet 500 mg PO Q8H PRN Pain 03/02/23 03/08/23 ipratropium 18 mcg-albuterol 103 1 spray inhalation QID PRN Wheezing 03/02/23 03/08/23 mcg/actuation aerosol inhaler ropinirole 1 mg tablet 1 mg PO BEDTIME 03/02/23 03/08/23 gabapentin 600 mg tablet 600 mg PO BEDTIME 03/08/23 03/08/23 prednisone 20 mg tablet 40 mg PO DAILY 03/08/23 03/08/23 Previous Rx's Medication Instructions Recorded albuterol sulfate 90 mcg/actuation 2 puff inhalation Q4-6H PRN 04/20/22 aerosol inhaler shortness of breath or wheezing 30 days #1 inhaler ferrous sulfate 324 mg (65 mg 324 mg PO DAILY 30 days #30 tabs 05/18/22 iron) tablet,delayed release nicotine 14 mg/24 hr daily 14 mg transdermal DAILY #30 ea 03/10/23 transdermal patch Allergies Allergy/AdvReac Type Severity Reaction Status Date / Time ampicillin Allergy Rash Verified 12/26/22 10:32 Penicillins Allergy Anaphylaxis Verified 03/15/23 17:49 latex AdvReac Rash Verified 03/15/23 17:49 Latex, Natural Rubber AdvReac Rash Verified 03/15/23 17:49 seafood AdvReac Stomach Verified 12/26/22 10:32 Upset Sulfa (Sulfonamide AdvReac Hives Verified 03/15/23 17:49 Antibiotics) Review of Systems Review of Systems: Constitutional : No Weight loss, No Fever, No Chills, No Night Sweats, No Fatigue, No Malaise ENT/Mouth : No Hearing loss, No Ear Pain, No Nasal Congestion, No Sinus Pain, No Hoarseness, No sore throat, No Rhinorrhea, No Swallowing Difficulty Eyes: No Eye Pain, No Swelling, No Redness, No Foreign Body, No Discharge, No Vision Changes Cardiovascular : No Chest Pain, No SOB, No Dyspnea on Exertion, No Orthopnea, No Edema, No Palpitations Respiratory : No Cough, No Sputum, No Wheezing, No Smoke Exposure, No Dyspnea Gastrointestinal : No Nausea, No Vomiting, No Diarrhea, No Constipation, No abdominal Pain, No Hematochezia, No Melena Genitourinary : no irregular bleeding, No Dysuria, No Urinary Frequency, No Hematuria, No Urinary Incontinence, No Urgency, No Flank Pain, No Urinary Flow Changes, No Hesitancy Musculoskeletal : No joint pain, No Myalgias, No Joint Swelling Skin : No Skin Lesions, No rash Neuro : No Weakness, No Numbness, No Paresthesias, No Loss of Consciousness, No Dizziness, No Headache Psych : No Anxiety/Panic, complaining depression, SI Heme/Lymph: No Bruising, No Bleeding,No Lymphadenopathy Endocrine : No Polyuria, No Polydipsia, No Temperature Intolerance PMFSH Past Medical History Medical History Asthma exacerbation in COPD Asthma-COPD overlap syndrome Bipolar disorder Bipolar I disorder Borderline personality disorder Chronic lung disease COPD (chronic obstructive pulmonary disease) COPD (chronic obstructive pulmonary disease) Depression Drug abuse Herpes Intermittent explosive disorder Mass of parotid gland FABIOLA (obstructive sleep apnea) Post traumatic stress disorder (PTSD) Pseudoseizures Tobacco use Tobacco use disorder Surgical History History of ankle surgery History of appendectomy History of back surgery Hx of cholecystectomy Family History Family History Mother COPD (chronic obstructive pulmonary disease) Social History Social History Household Members: None Household Members Other:: [employer] in [place] Housing: Apartment Housing Other:: Sleeps on the couch at [facility] house Do you presently have visiting nurse or other home services: Yes (twice a day) Unable to assess alcohol history related to: Unknown Alcohol intake: never Patient Tobacco Use Status: Current everyday Tobacco user Tobacco use type: Cigarette Cigarette Packs Per Day: 3 Cigarettes Per Day: 10 Years Smoked: 35 e-Cigarette/Vaping Use: Former Use Second Hand Smoke Exposure: No Substance Use Type: Crack/Cocaine Advance Directives: Yes Advance Directives on File: Yes Advance Directives Date on File: 06/17/22 service: No Current occupational status: unemployed and disabled Sexual orientation: Straight/Heterosexual Physical Exam Vital Signs: Vital Signs: Last Vital Signs Temp 98.5 F 03/15/23 17:35 Pulse 97 03/15/23 17:35 Resp 18 03/15/23 17:35 BP 141/76 H 03/15/23 17:35 Pulse Ox 94 03/15/23 17:35 O2 Del Method Room Air 03/15/23 17:35 BMI result Body Mass Index 32.3 Const: Other: Appearance: Alert. Oriented X3. No acute distress. Eyes: Pupils equal, round and reactive to light. ENT: Pharynx normal. Neck: Normal inspection. Neck supple. No lymph nodes noted. No crepitus CVS: Normal heart rate and rhythm. Pulses normal. Normal S1 and S2 Respiratory: No respiratory distress. Breath sounds normal. No Wheezing. No rales Abdomen: Soft and nontender. No rigidity. No distention. Skin: Skin warm and dry. Normal skin color. Normal skin turgor. Extremities: No lower extremity edema. No Lacerations. No Rash Neuro: Oriented X 3. No motor deficit. No sensory deficit. Moving all extremities. No slurred speech. CN 2 through 12 grossly intact Psych: calm, cooperative, normal affect, does not seem depressed, patient seems happy, cheerful Medical Decision Making Medical Decision Making MDM Narrative: -care team consult pending -physician observations started at 17:45 Discharge Plan Discharge Clinical Impression: Anxiety Patient Disposition: Still a Patient Prescriptions: No Action albuterol sulfate 90 mcg/actuation HFA aerosol inhaler 2 puff inhalation Q4-6H PRN (Reason: shortness of breath or wheezing) 30 Days Qty: 1 0RF ferrous sulfate 324 mg (65 mg iron) tablet,delayed release (DR/EC) 324 mg PO DAILY 30 Days Qty: 30 0RF oxcarbazepine 150 mg tablet 1 tab PO BID valacyclovir 1 gram tablet 1 tab PO BID benztropine 1 mg tablet 1 tab PO BID omeprazole 20 mg capsule,delayed release(DR/EC) 1 cap PO DAILY@0630 sertraline 50 mg tablet 50 mg PO DAILY cholecalciferol (vitamin D3) 25 mcg (1,000 unit) tablet 1 tab PO DAILY lithium carbonate 600 mg capsule 1 cap PO BID cyanocobalamin (vitamin B-12) 100 mcg tablet 1 tab PO DAILY olanzapine 10 mg tablet 1 tab PO BEDTIME Spiriva with HandiHaler 18 mcg capsule, w/inhalation device 1 cap inhalation DAILY clonidine HCl 0.1 mg Tablet 0.2 mg PO BEDTIME bupropion HCl 150 mg Tablet Extended Release 24 Hr 150 mg PO QAM ropinirole 1 mg Tablet 1 mg PO BEDTIME Rx Instructions: administer 1-3 hours before bedtime acetaminophen 500 mg Tablet 500 mg PO Q8H PRN (Reason: Pain) ipratropium-albuterol 18-103 mcg/actuation Aerosol 1 spray INHALATION QID PRN (Reason: Wheezing) gabapentin 600 mg tablet 600 mg PO BEDTIME prednisone 20 mg Tablet 40 mg PO DAILY Rx Instructions: FOR 5 DAYS STARTING 03/06 nicotine 14 mg/24 hr Patch 24 Hour 14 mg transdermal DAILY Qty: 30 0RF Interventions: [place]idan-Suicide Risk Severity Scale Last Done: 03/15/23 17:55
[2023-03-15 18:11] LABS: Appearance Urine Cloudy; Color Urine Dark Yellow; Glucose Urine UA Negative (Negative); Leukocyte Esterase Urine Large (3+) (Negative); Nitrite Urine Negative (Negative); Specific Gravity - Urine 1.025 (1.005-1.025); UMIC TRIGGER UACC YES; Urine Blood Negative (Negative); Urine Ketones Trace mg/dL (Negative); Urine Protein 30 (1+) mg/dL (Neg-Trace)
[2023-03-15 18:16] LABS: Bacteria Urine 1+ (None Seen); Hyaline Casts Urine 0-2 /LPF (0-2); RBC Urine 0-2 /HPF (0-2); Squamous Epithelial Cell Urine >20 /HPF (0-2); UACC Culture Trigger YES; WBC Urine >50 /HPF (0-5)
[2023-03-15 18:22] LABS: COVID-19 Test Negative (Negative); IDNOW Serial# 08D9AD1C
[2023-03-15 18:29] LABS: Amphetamine Screen Urine Not Detected (Not Detect); Barbiturates, Urine Not Detected (Not Detect); Benzodiazepines Screen Urine Not Detected (Not Detect); Cannabinoid Screen Urine Not Detected (Not Detect); Cocaine Screen Urine Not Detected (Not Detect); Fentanyl, urine Not Detected (Not Detect); Opiate Screen Urine Not Detected (Not Detect); Phencyclidine Screen Urine Not Detected (Not Detect)
[2023-03-15 19:31] LABS: MANUAL DIFF FLAG NO
[2023-03-15 19:34] LABS: Basophils Absolute Auto 0.1 X10*3/uL (0.0-0.2); Basophils Percent Auto 0.7 % (0-2); Eosinophils Absolute Auto 0.3 X10*3/uL (0.0-0.4); Hematocrit 43.6 % (37.0-47.0); Hemoglobin 14.1 g/dl (12.0-16.0); Imm Gran Abs Auto 0.08 X10*3/uL (0.00-0.03); Imm Gran Pct Auto 0.6 % (0.0-0.4); Lymphocytes Absolute Auto 3.1 X10*3/uL (1.2-4.9); Lymphocytes Percent Auto 21.3 % (20-40); Mean Corpuscular HGB Conc 32.3 g/dl (31.0-35.0); Mean Corpuscular Volume 99.1 fL (80.0-98.0); Mean Platelet Volume 9.2 fL (9.4-12.3); Monocytes Absolute Auto 0.8 X10*3/uL (0.1-1.2); Monocytes Percent Auto 5.3 % (2-11); Neutrophils Percent Auto 70.1 % (45-73); Platelet Count 332 X10*3/uL (160-400); Red Cell Distribution Width 12.5 % (11.0-16.0); White Blood Count 14.3 X10*3/uL (4.8-10.8)
[2023-03-15 20:00] LABS: Lithium 0.93 mmol/L (0.60-1.20)
[2023-03-15 20:09] LABS: Alanine Aminotransferase 16 U/L (0-31); Albumin Level 4.1 g/dL (3.5-5.0); Alkaline Phosphatase 81 U/L (39-117); Anion Gap 12 (12-20); Aspartate Amino Transferase 12 U/L (5-31); Bilirubin Total 0.3 mg/dL (0.0-1.0); Blood Urea Nitrogen 14 mg/dL (9-16); Calcium 9.6 mg/dL (8.4-10.2); Carbon Dioxide 27 mmol/L (22-29); Chloride 104 mmol/L (96-108); Estimated Glomerular Filt Rate > 60; Ethanol < 10 mg/dL; Glucose Random 103 mg/dL (60-115); Potassium 4.2 mmol/L (3.3-5.1); Sodium 139 mmol/L (135-145); Total Protein 6.4 g/dL (6.5-8.0)
[2023-03-16 00:38] VITALS: BP 146/84; PULSE 83; RESP 17; TEMP 36.6; O2SAT 94
[2023-03-16] MEDS: Ibuprofen 800 MG TABLET PO (00:42)
[2023-03-16] MEDS: Magnesium Hydrox/Alum Hydrox 30 ML ORAL.SUSP PO (03:15)
[2023-03-16 03:23] VITALS: BP 137/89; PULSE 74; RESP 18; TEMP 36.6; O2SAT 95
[2023-03-16] MEDS: Omeprazole 20 MG CAPSULE.DR PO (05:12)
--- NOTE | 2023-03-16 05:33 | PC.NURSE ---
Patient slept through the night, no distress observed/reported except heartburn Maalox administered with + effect, med rec completed/approved/patient is medication compliant, patient was seen by care team, disposition is JOHN follow, VSS, behavior non concerning, VSS, will continue to monitor.
[2023-03-16] MEDS: Ferrous Sulfate 324 MG TABLET.DR PO (08:10)
[2023-03-16] MEDS: Cyanocobalamin (Vitamin B-12) 100 MCG TABLET PO (08:10)
[2023-03-16] MEDS: buPROPion HCl XL 150 MG TAB.ER.24H PO (08:10)
[2023-03-16] MEDS: valACYclovir HCL 1,000 MG TABLET 1000 MG PO ×2 (08:10→21:34)
[2023-03-16] MEDS: Sertraline HCL 50 MG TABLET PO (08:11)
[2023-03-16] MEDS: Benztropine Mesylate 1 MG TABLET PO ×2 (08:11→21:34)
[2023-03-16] MEDS: Cholecalciferol (Vitamin D3) 25 MCG TABLET PO (08:11)
[2023-03-16] MEDS: OXcarbazepine 150 MG TABLET PO ×2 (08:11→21:35)
[2023-03-16] MEDS: predniSONE 20 MG TABLET 40 MG PO (08:12)
[2023-03-16] MEDS: Lithium Carbonate 300 MG CAPSULE 600 MG PO ×2 (08:14→21:35)
[2023-03-16] MEDS: Acetaminophen 325 MG TABLET 650 MG PO (08:16)
[2023-03-16 08:18] VITALS: BP 137/78; PULSE 78; RESP 16; TEMP 36.6; O2SAT 94
--- NOTE | 2023-03-16 08:27 | ECG_ITS ---
Test Reason : chest pain Blood Pressure : / mmHG Vent. Rate : 073 BPM Atrial Rate : 073 BPM P-R Int : 146 ms QRS Dur : 086 ms QT Int : 382 ms P-R-T Axes : 002 044 038 degrees QTc Int : 420 ms Normal sinus rhythm Possible Anterior infarct , age undetermined Abnormal ECG When compared with ECG of 07-MAR-2023 22:39, Borderline criteria for Anterior infarct are now Present Referred By: Oswaldo Hollis Electronically Signed By:Deangelo Gutierres
--- NOTE | 2023-03-16 08:32 | PC.NURSE ---
Pt c/o mild chest pain PRN pain med given. EKG obtained, MD notified.
[2023-03-16] MEDS: Albuterol/Iprat 2.5/0.5MG 3 ML AMPUL.NEB INHALE ×2 (10:33→20:14)
--- NOTE | 2023-03-16 10:35 | PC.NURSE ---
Pt in her room laying crossways the bed writing and coping excerpts from a magazine. No dangerous behaviors or s/s of distress noted.
--- NOTE | 2023-03-16 16:29 | PC.NURSE ---
Skin check completed by Shahram TY and Kiah Rose RN. Patient noted to have dry feet, with calloused areas.
[2023-03-16 17:29] VITALS: BP 142/88; PULSE 78; RESP 16; TEMP 36.7; O2SAT 95
--- NOTE | 2023-03-16 17:31 | PC.NURSE ---
Bhavana is on a CV with 15 min checks. She has been admitted with increased SI and urge to cut herself. States that she gets extra depressed this time of year due to family deaths that occurred at this time in the past. She is Bipolar, has PTSD, and borderline personality disorder. She is alert and oriented x4, utilizes a walker, and has a CPAP at night with close observation. Tox screen negative. She has CHF, COPD, Bilateral hip osteoarthritis, and left parotid gland malignancy.
[2023-03-16] MEDS: hydrOXYzine HCL 25 MG TABLET PO (19:03)
[2023-03-16 20:14] VITALS: PULSE 74; RESP 18; O2SAT 94
[2023-03-16 21:25] VITALS: BP 145/84; PULSE 83; TEMP 36.6; O2SAT 94
[2023-03-16] MEDS: rOPINIRole HCL 1 MG TABLET PO (21:33)
[2023-03-16] MEDS: Doxycycline Monohydrate 100 MG CAPSULE PO (21:34)
[2023-03-16] MEDS: Gabapentin 600 MG TABLET PO (21:34)
[2023-03-16] MEDS: cloNIDine HCL 0.2 MG TABLET PO (21:34)
[2023-03-16] MEDS: OLANZapine 10 MG TABLET PO (21:35)
[2023-03-17] VITALS (9 sets, daily range): BP systolic 123–147; BP diastolic 63–69; PULSE 74–99; RESP 16–20; TEMP 36.6–36.8; O2SAT 93–96; BMI 44.4
[2023-03-17] MEDS: Albuterol/Iprat 2.5/0.5MG 3 ML AMPUL.NEB INHALE ×5 (00:05→23:07)
[2023-03-17] MEDS: Omeprazole 20 MG CAPSULE.DR PO (06:07)
[2023-03-17] MEDS: Acetaminophen 325 MG TABLET 650 MG PO (06:08)
[2023-03-17] MEDS: Capsaicin 0.025% Cream 60 GM TUBE 1 APPL TOPICAL (06:13)
[2023-03-17] MEDS: Ferrous Sulfate 324 MG TABLET.DR PO (08:49)
[2023-03-17] MEDS: Cyanocobalamin (Vitamin B-12) 100 MCG TABLET PO (08:49)
[2023-03-17] MEDS: Lithium Carbonate 300 MG CAPSULE 600 MG PO ×2 (08:52→21:12)
[2023-03-17] MEDS: buPROPion HCl XL 150 MG TAB.ER.24H PO (08:52)
[2023-03-17] MEDS: valACYclovir HCL 1,000 MG TABLET 1000 MG PO ×2 (08:52→21:12)
[2023-03-17] MEDS: Nicotine 14 MG PATCH.TD24 TRANSDERMA (08:52)
[2023-03-17] MEDS: Doxycycline Monohydrate 100 MG CAPSULE PO ×2 (08:53→21:12)
[2023-03-17] MEDS: Benztropine Mesylate 1 MG TABLET PO ×2 (08:53→21:12)
[2023-03-17] MEDS: Sertraline HCL 50 MG TABLET PO (08:53)
[2023-03-17] MEDS: Cholecalciferol (Vitamin D3) 25 MCG TABLET PO (08:53)
[2023-03-17] MEDS: OXcarbazepine 150 MG TABLET PO ×2 (08:53→21:12)
[2023-03-17] MEDS: Milk of Magnesia 30 ML ORAL.SUSP PO (09:25)
[2023-03-17 10:47] LABS: Estimated Average Glucose 103 mg/dL; Hemoglobin A1c % 5.2 %
[2023-03-17 11:06] LABS: Alanine Aminotransferase 14 U/L (0-31); Albumin Level 3.9 g/dL (3.5-5.0); Alkaline Phosphatase 70 U/L (39-117); Anion Gap 14 (12-20); Aspartate Amino Transferase 11 U/L (5-31); Bilirubin Total 0.3 mg/dL (0.0-1.0); Blood Urea Nitrogen 14 mg/dL (9-16); Calcium 9.9 mg/dL (8.4-10.2); Carbon Dioxide 26 mmol/L (22-29); Chloride 103 mmol/L (96-108); Cholesterol 195 mg/dL; Creatinine Clr Calc Pharmacy 99.5; Estimated Glomerular Filt Rate > 60; Glucose Fasting 125 mg/dL (60-99); HDL Cholesterol 50 mg/dL; LDL Cholesterol Calculated 85 mg/dl; Potassium 4.2 mmol/L (3.3-5.1); Sodium 139 mmol/L (135-145); Total Protein 6.2 g/dL (6.5-8.0); Triglycerides 301 mg/dL
[2023-03-17 11:35] LABS: Folate 7.1 ng/mL (> or = 4.0); Thyroid Stimulating Hormone 0.71 uIU/mL (0.32-4.0); Vitamin B12 716 pg/mL (200-900)
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
[2023-03-17] MEDS: Albuterol Sulfate 90 MCG 8 GM INHALER 2 PUFF INHALE (20:25)
[2023-03-17] MEDS: Lithium Carbonate ER 450 MG TABLET.ER 900 MG PO (21:11)
[2023-03-17] MEDS: cloNIDine HCL 0.2 MG TABLET PO (21:12)
[2023-03-17] MEDS: Gabapentin 600 MG TABLET 300 MG PO (21:12)
[2023-03-17] MEDS: rOPINIRole HCL 1 MG TABLET PO (21:12)
[2023-03-17] MEDS: OLANZapine 10 MG TABLET PO (21:12)
[2023-03-18 01:19] LABS: CT PCR NOT DETECTED (Not Detect.); NG PCR NOT DETECTED (Not Detect.)
[2023-03-18] MEDS: Omeprazole 20 MG CAPSULE.DR PO (05:25)
[2023-03-18] MEDS: Albuterol/Iprat 2.5/0.5MG 3 ML AMPUL.NEB INHALE ×3 (06:12→18:06)
[2023-03-18 06:15] VITALS: PULSE 82; RESP 16; O2SAT 94
[2023-03-18] MEDS: Nicotine 14 MG PATCH.TD24 TRANSDERMA (08:18)
[2023-03-18] MEDS: OXcarbazepine 150 MG TABLET PO (08:19)
[2023-03-18] MEDS: valACYclovir HCL 1,000 MG TABLET 1000 MG PO ×2 (08:19→20:31)
[2023-03-18] MEDS: Cyanocobalamin (Vitamin B-12) 100 MCG TABLET PO (08:20)
[2023-03-18] MEDS: Benztropine Mesylate 1 MG TABLET PO ×2 (08:20→20:31)
[2023-03-18] MEDS: buPROPion HCl XL 150 MG TAB.ER.24H PO (08:20)
[2023-03-18] MEDS: Doxycycline Monohydrate 100 MG CAPSULE PO ×2 (08:20→20:31)
[2023-03-18] MEDS: Cholecalciferol (Vitamin D3) 25 MCG TABLET PO (08:20)
[2023-03-18] MEDS: Ferrous Sulfate 324 MG TABLET.DR PO (08:20)
--- NOTE | 2023-03-18 08:37 | PM.GYNCN ---
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 UA done on 03/15 was positive for large leukocyte esterase, protein and wbc's, negative for microscopic hematuria , urine culture showed 50-100 K of mixed vaginal blossom cc:: CC: Ligia Cortez OB PMF Past Medical History Medical History Asthma exacerbation in COPD Asthma-COPD overlap syndrome Bipolar disorder Bipolar I disorder Borderline personality disorder Chronic lung disease COPD (chronic obstructive pulmonary disease) COPD (chronic obstructive pulmonary disease) Depression Drug abuse Herpes Intermittent explosive disorder 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 FABIOLA (obstructive sleep apnea) Post traumatic stress disorder (PTSD) Pseudoseizures Tobacco use Tobacco use disorder Family History Family History Mother COPD (chronic obstructive pulmonary disease) Surgical History Surgical History History of ankle surgery History of appendectomy History of back surgery Hx of cholecystectomy Social History Social History Household Members: Unknown / Unable to assess Household Members Other:: Residential in [place] Housing: Apartment Housing Other:: Sleeps on the couch at [facility] house Do you presently have visiting nurse or other home services: Yes (twice a day) Unable to assess alcohol history related to: Unknown Alcohol intake: never Patient Tobacco Use Status: Current everyday Tobacco user Tobacco use type: Cigarette Cigarette Packs Per Day: 3 Cigarettes Per Day: 10 Years Smoked: 35 Smoked in Last 30 Days: Yes e-Cigarette/Vaping Use: Former Use Patient Interested in Nicotine Replacement: Yes Second Hand Smoke Exposure: No Use of substances other than those prescribed or required for medical reasons: Unknown Substance Use Type: Crack/Cocaine Currently Displaying Signs/Symptoms of Drug Intoxication Withdrawal: No Advance Directives: Yes Advance Directives on File: Yes Advance Directives Date on File: 06/17/22 Healthcare Proxy: No Guardian: No Do you have thoughts of harming others: None Do you have a plan to hurt others: No Plan Recently lost weight without trying: No Eating poorly because of decreased appetite: No Nutrition Risks: No Nutritional Risk Patient : No : No Poor oral hygiene: Yes service: No Current occupational status: unemployed and disabled Sexual orientation: Straight/Heterosexual Meds Allergies Allergy/AdvReac Type Severity Reaction Status Date / Time ampicillin Allergy Rash Verified 12/26/22 10:32 Penicillins Allergy Anaphylaxis Verified 03/15/23 17:49 latex AdvReac Rash Verified 03/15/23 17:49 Latex, Natural Rubber AdvReac Rash Verified 03/15/23 17:49 seafood AdvReac Stomach Verified 12/26/22 10:32 Upset Sulfa (Sulfonamide AdvReac Hives Verified 03/15/23 17:49 Antibiotics) Active Medications: Current Medications Acetaminophen (Acetaminophen 325 Mg Tablet) 650 mg PO Q8H PRN PRN Reason: Pain, Moderate(Pain Scale 4-6) Last Admin: 03/17/23 06:08 Dose: 650 mg Al Hydroxide/Mg Hydroxide (Magnesium Hydrox/Alum Hydrox 30 Ml Oral.Susp) 30 ml PO Q6H PRN PRN Reason: Heartburn/Nausea Albuterol Sulfate (Albuterol Sulfate 90 Mcg 8 Gm Inhaler) 2 puff INHALE Q4H PRN PRN Reason: shortness of breath or wheezing Last Admin: 03/17/23 20:25 Dose: 2 puff Albuterol/Ipratropium (Albuterol/Iprat 2.5/0.5mg 3 Ml Ampul.Neb) 3 ml INHALE RQ6H [facility] Last Admin: 03/18/23 06:12 Dose: 3 ml Benztropine Mesylate (Benztropine Mesylate 1 Mg Tablet) 1 mg PO BID [facility] Last Admin: 03/18/23 08:20 Dose: 1 mg Bupropion HCl (Bupropion Hcl Xl 150 Mg Tab.Er.24h) 150 mg PO DAILY [facility] Last Admin: 03/18/23 08:20 Dose: 150 mg Capsaicin (Capsaicin 0.025% Cream 60 Gm Tube) 1 appl TOPICAL QID PRN; Protocol PRN Reason: Pain, Mild (Pain Scale 1-3) Last Admin: 03/17/23 06:13 Dose: 1 appl Clonidine HCl (Clonidine Hcl 0.2 Mg Tablet) 0.2 mg PO BEDTIME [facility]; Protocol Last Admin: 03/17/23 21:12 Dose: 0.2 mg Cyanocobalamin (Cyanocobalamin (Vitamin B-12) 100 Mcg Tablet) 100 mcg PO DAILY [facility] Last Admin: 03/18/23 08:20 Dose: 100 mcg Doxycycline Monohydrate (Doxycycline Monohydrate 100 Mg Capsule) 100 mg PO BID [facility] Stop: 03/19/23 20:59 Last Admin: 03/18/23 08:20 Dose: 100 mg Ferrous Sulfate (Ferrous Sulfate 324 Mg Tablet.Dr) 324 mg PO DAILY [facility] Last Admin: 03/18/23 08:20 Dose: 324 mg Gabapentin (Gabapentin 600 Mg Tablet) 300 mg PO BEDTIME [facility] Last Admin: 03/17/23 21:12 Dose: 300 mg Hydroxyzine HCl (Hydroxyzine Hcl 25 Mg Tablet) 25 mg PO Q6H PRN PRN Reason: Anxiety Last Admin: 03/16/23 19:03 Dose: 25 mg [place] Carbonate ([place] Carbonate Er 450 Mg Tablet.Er) 900 mg PO BEDTIME [facility] Last Admin: 03/17/23 21:11 Dose: 900 mg Magnesium Hydroxide (Milk Of Magnesia 30 Ml Oral.Susp) 30 ml PO DAILY PRN PRN Reason: Constipation Last Admin: 03/17/23 09:25 Dose: 30 ml Nicotine (Nicotine 14 Mg Patch.Td24) 14 mg TRANSDERMA DAILY [facility] Last Admin: 03/18/23 08:18 Dose: 14 mg Nicotine Polacrilex (Nicotine Polacrilex 2 Mg Gum) 4 mg BUCCAL Q2H PRN PRN Reason: Nicotine Cravings Olanzapine (Olanzapine 10 Mg Tablet) 10 mg PO BEDTIME [facility] Last Admin: 03/17/23 21:12 Dose: 10 mg Omeprazole (Omeprazole 20 Mg Capsule.Dr) 20 mg PO DAILY@0630 [facility] Last Admin: 03/18/23 05:25 Dose: 20 mg Oxcarbazepine (Oxcarbazepine 150 Mg Tablet) 150 mg PO BID [facility] Last Admin: 03/18/23 08:19 Dose: 150 mg Ropinirole HCl (Ropinirole Hcl 1 Mg Tablet) 1 mg PO BEDTIME [facility] Last Admin: 03/17/23 21:12 Dose: 1 mg Tiotropium [place] (Tiotropium [place] 18 Mcg Cap.W.Dev) 1 puff INHALE RDAILY [facility] Last Admin: 03/18/23 08:18 Dose: 1 puff Trazodone HCl (Trazodone Hcl 50 Mg Tablet) 50 mg PO BEDTIME MRX1 PRN PRN Reason: Insomnia Valacyclovir HCl (Valacyclovir Hcl 1,000 Mg Tablet) 1,000 mg PO BID [facility] Last Admin: 03/18/23 08:19 Dose: 1,000 mg Vitamin D (Cholecalciferol (Vitamin D3) 25 Mcg Tablet) 25 mcg PO DAILY [facility] Last Admin: 03/18/23 08:20 Dose: 25 mcg Home Medications Medication Instructions Recorded Confirmed Last Taken Type benztropine 1 mg tablet 1 tab PO BID 07/23/22 03/15/23 03/07/23 History cholecalciferol (vitamin D3) 25 1 tab PO DAILY 07/23/22 03/15/23 03/07/23 History mcg (1,000 unit) tablet omeprazole 20 mg capsule,delayed 1 cap PO DAILY@0630 07/23/22 03/15/23 03/07/23 History release oxcarbazepine 150 mg tablet 1 tab PO BID 07/23/22 03/15/23 03/07/23 History sertraline 50 mg tablet 50 mg PO DAILY 07/23/22 03/15/23 03/07/23 History valacyclovir 1 gram tablet 1 tab PO BID 07/23/22 03/15/23 03/07/23 History lithium carbonate 600 mg capsule 1 cap PO BID 07/24/22 03/15/23 03/07/23 History cyanocobalamin (vitamin B-12) 100 1 tab PO DAILY 08/06/22 03/15/23 03/07/23 History mcg tablet olanzapine 10 mg tablet 1 tab PO BEDTIME 08/06/22 03/15/23 03/07/23 History bupropion HCl 150 mg 24 hr tablet, 150 mg PO QAM 09/23/22 03/15/23 03/07/23 History extended release clonidine HCl 0.1 mg tablet 0.2 mg PO BEDTIME 09/23/22 03/15/23 03/07/23 History tiotropium bromide 18 mcg capsule 1 cap inhalation DAILY 09/23/22 03/15/23 03/07/23 History with inhalation device (Spiriva with HandiHaler) acetaminophen 500 mg tablet 500 mg PO Q8H PRN Pain 03/02/23 03/15/23 03/07/23 History ipratropium 18 mcg-albuterol 103 1 spray inhalation QID PRN Wheezing 03/02/23 03/15/23 03/07/23 History mcg/actuation aerosol inhaler ropinirole 1 mg tablet 1 mg PO BEDTIME 03/02/23 03/15/23 03/07/23 History gabapentin 600 mg tablet 600 mg PO BEDTIME 03/08/23 03/15/23 03/07/23 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 Vitals Vital signs: Temp Pulse Resp BP Pulse Ox O2 Del Method 97.9 F 82 16 123/63 94 Room Air 03/17/23 20:18 03/18/23 06:15 03/18/23 06:15 03/17/23 20:18 03/17/23 20:18 03/17/23 20:18 BMI result Body Mass Index 44.4 Female Genitalia (Pelvic) Bladder/Urethra: Normal meatus Vulva: No lesions Vagina: Nontender Cervix: Grossly normal Uterus: Normal size and Nontender Adnexa/Parametria: Adnexal Tenderness: None and Adnexal Mass: None 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 Labs 03/15/23 19:26 03/17/23 09:53 Labs: BMP 03/17/23 09:53 Sodium 139 Potassium 4.2 Chloride 103 Carbon Dioxide 26 BUN 14 Creatinine 0.75 Calcium 9.9 Liver Function 03/17/23 Range/Units 09:53 Total Bilirubin 0.3 (0.0-1.0) mg/dL AST 11 (5-31) U/L ALT 14 (0-31) U/L Alkaline Phosphatase 70 (39-117) U/L Albumin 3.9 (3.5-5.0) g/dL Urine 03/15/23 Range/Units 17:59 Urine Color Dark Yellow Urine Appearance Cloudy Urine pH 6.0 (5.0-9.0) Ur Specific [place] 1.025 (1.005-1.025) Urine Protein 30 (1+) H (Neg-Trace) mg/dL Urine Glucose (UA) Negative (Negative) mg/dL Assessment and Plan (1) Vulvovaginitis: Status: Acute GC/CT and BV panel collected. Since the patient is symptoms are suggestive of mixed vulvovaginitis due to [place] and bacterial vaginosis will start with Terconazol q.h.s. for 3 days, and metronidazole 500 mg p.o. b.i.d. 7 days. Per CDC recommendation, will screen for STI, HepBs Ag, HIV, RPR, Hep C Ab ordered. Instructions given to the patient to not to douch, it might increase the risk for relapse, and to call if symptoms persist or recur. Time Spent With Patient Time: Total time managing care of this patient today ____ minutes.
[2023-03-18 09:00] VITALS: BP 125/66; PULSE 85; RESP 18; TEMP 36.6; O2SAT 96
[2023-03-18] MEDS: metroNIDAZOLE 500 MG TABLET PO ×2 (09:08→20:29)
--- NOTE | 2023-03-18 10:18 | P.PNPSI_ITS ---
Subjective Subjective Date of Service: 03/18/23 Reason For Visit: psychiatric symptoms Subjective Notes: Conditional Voluntary Interim History: Pt reports feeling more stable. She reports she was hearing voices and this being the reason for coming to the hospital. She reports sleeping and eating well. She reports she thinks she is on too many medications, more stable as she has decrease cocaine use and has more stable living situation. We discussed d/c wellbutrin but leaving lithium and olanzapine, which she agrees with. Medication Compliance: Yes Side effects from medications: No Review of Systems Review of Systems Constitutional : No Weight loss, No Fever, No Chills, No Night Sweats, No Fatigue, No Malaise ENT/Mouth : No Hearing loss, No Ear Pain, No Nasal Congestion, No Sinus Pain, No Hoarseness, No sore throat, No Rhinorrhea, No Swallowing Difficulty Eyes: No Eye Pain, No Swelling, No Redness, No Foreign Body, No Discharge, No Vision Changes Cardiovascular : No Chest Pain, No SOB, No Dyspnea on Exertion, No Orthopnea, No Edema, No Palpitations Respiratory : No Cough, No Sputum, No Wheezing, No Smoke Exposure, No Dyspnea Gastrointestinal : No Nausea, No Vomiting, No Diarrhea, No Constipation, No abdominal Pain, No Hematochezia, No Melena Genitourinary : no irregular bleeding, No Dysuria, No Urinary Frequency, No He maturia, No Urinary Incontinence, No Urgency, No Flank Pain, No Urinary Flow Changes, No Hesitancy Musculoskeletal : No joint pain, No Myalgias, No Joint Swelling Skin : No Skin Lesions, No rash Neuro : No Weakness, No Numbness, No Paresthesias, No Loss of Consciousness, No Dizziness, No Headache Psych : No Anxiety/Panic, complaining depression, SI Heme/Lymph: No Bruising, No Bleeding,No Lymphadenopathy Endocrine : No Polyuria, No Polydipsia, No Temperature Intolerance Mental Status Exam Mental Status Exam Narrative: Appearance: casually groomed, good hygiene, in NAD Behavior: cooperative PSychomotor: no agitation or retardation noted Speech: clear, normal rate/rhythm/volume, spontaneous TP: linear TC: without over psychosis or delusions. feeling better, wanting help and short admission Mood: better Affect: congruent, brighter, non labile SI: denies HI: denies VH/AH: none Delusions: none Insight/judgment: fair x 2 memory/cog: alert, oriented x 3. Diagnostics Vital Signs (24Hr): Vital Signs - 24 hr 03/17/23 11:50 03/17/23 18:01 03/17/23 20:18 Temperature 97.9 F Pulse Rate 84 87 99 Respiratory Rate 20 20 18 Blood Pressure 123/63 Pulse Oximetry 94 Oxygen Delivery Method Room Air 03/17/23 23:08 03/17/23 23:24 03/18/23 06:15 Temperature Pulse Rate 99 82 Respiratory Rate 18 18 16 Blood Pressure Pulse Oximetry Oxygen Delivery Method 03/18/23 09:00 Temperature 97.9 F Pulse Rate 85 Respiratory Rate 18 Blood Pressure 125/66 Pulse Oximetry 96 Oxygen Delivery Method Room Air BMI result Body Mass Index 44.4 Labs 03/15/23 19:26 03/17/23 09:53 Labs: Laboratory Results - last 48 hr 03/17/23 03/17/23 03/17/23 09:53 09:53 16:25 Sodium 139 Potassium 4.2 Chloride 103 Carbon Dioxide 26 Anion Gap 14 BUN 14 Creatinine 0.75 Estim Creat Clear Calc 99.5 Estimated GFR > 60 Fasting Glucose 125 H Estimat Average Glucose 103 Hemoglobin A1c % 5.2 Calcium 9.9 Total Bilirubin 0.3 AST 11 ALT 14 Alkaline Phosphatase 70 Total Protein 6.2 L Albumin 3.9 Triglycerides 301 Cholesterol 195 LDL Cholesterol, Calc 85 HDL Cholesterol 50 Vitamin B12 716 Folate 7.1 TSH 0.71 Free T4 1.00 Chlam trachomat DNA PCR NOT DETECTED N.gonorrhoeae DNA (PCR) NOT DETECTED Medications Medications Current Medications Acetaminophen (Acetaminophen 325 Mg Tablet) 650 mg PO Q8H PRN PRN Reason: Pain, Moderate(Pain Scale 4-6) Last Admin: 03/17/23 06:08 Dose: 650 mg Al Hydroxide/Mg Hydroxide (Magnesium Hydrox/Alum Hydrox 30 Ml Oral.Susp) 30 ml PO Q6H PRN PRN Reason: Heartburn/Nausea Albuterol Sulfate (Albuterol Sulfate 90 Mcg 8 Gm Inhaler) 2 puff INHALE Q4H PRN PRN Reason: shortness of breath or wheezing Last Admin: 03/17/23 20:25 Dose: 2 puff Albuterol/Ipratropium (Albuterol/Iprat 2.5/0.5mg 3 Ml Ampul.Neb) 3 ml INHALE RQ6H [facility] Last Admin: 03/18/23 06:12 Dose: 3 ml Benztropine Mesylate (Benztropine Mesylate 1 Mg Tablet) 1 mg PO BID [facility] Last Admin: 03/18/23 08:20 Dose: 1 mg Bupropion HCl (Bupropion Hcl Xl 150 Mg Tab.Er.24h) 150 mg PO DAILY [facility] Last Admin: 03/18/23 08:20 Dose: 150 mg Capsaicin (Capsaicin 0.025% Cream 60 Gm Tube) 1 appl TOPICAL QID PRN; Protocol PRN Reason: Pain, Mild (Pain Scale 1-3) Last Admin: 03/17/23 06:13 Dose: 1 appl Clonidine HCl (Clonidine Hcl 0.2 Mg Tablet) 0.2 mg PO BEDTIME [facility]; Protocol Last Admin: 03/17/23 21:12 Dose: 0.2 mg Clotrimazole (Clotrimazole 1 % Vaginal Cream 45 Gm Tube) 1 appl VAGINAL BEDTIME [facility] Stop: 03/20/23 21:01 Cyanocobalamin (Cyanocobalamin (Vitamin B-12) 100 Mcg Tablet) 100 mcg PO DAILY [facility] Last Admin: 03/18/23 08:20 Dose: 100 mcg Doxycycline Monohydrate (Doxycycline Monohydrate 100 Mg Capsule) 100 mg PO BID [facility] Stop: 03/19/23 20:59 Last Admin: 03/18/23 08:20 Dose: 100 mg Ferrous Sulfate (Ferrous Sulfate 324 Mg Tablet.Dr) 324 mg PO DAILY [facility] Last Admin: 03/18/23 08:20 Dose: 324 mg Gabapentin (Gabapentin 600 Mg Tablet) 300 mg PO BEDTIME [facility] Last Admin: 03/17/23 21:12 Dose: 300 mg Hydroxyzine HCl (Hydroxyzine Hcl 25 Mg Tablet) 25 mg PO Q6H PRN PRN Reason: Anxiety Last Admin: 03/16/23 19:03 Dose: 25 mg [place] Carbonate ([place] Carbonate Er 450 Mg Tablet.Er) 900 mg PO BEDTIME [facility] Last Admin: 03/17/23 21:11 Dose: 900 mg Magnesium Hydroxide (Milk Of Magnesia 30 Ml Oral.Susp) 30 ml PO DAILY PRN PRN Reason: Constipation Last Admin: 03/17/23 09:25 Dose: 30 ml Metronidazole (Metronidazole 500 Mg Tablet) 500 mg PO Q12H [facility] Stop: 03/25/23 08:43 Last Admin: 03/18/23 09:08 Dose: 500 mg Nicotine (Nicotine 14 Mg Patch.Td24) 14 mg TRANSDERMA DAILY [facility] Last Admin: 03/18/23 08:18 Dose: 14 mg Nicotine Polacrilex (Nicotine Polacrilex 2 Mg Gum) 4 mg BUCCAL Q2H PRN PRN Reason: Nicotine Cravings Olanzapine (Olanzapine 10 Mg Tablet) 10 mg PO BEDTIME [facility] Last Admin: 03/17/23 21:12 Dose: 10 mg Omeprazole (Omeprazole 20 Mg Capsule.Dr) 20 mg PO DAILY@0630 [facility] Last Admin: 03/18/23 05:25 Dose: 20 mg Ropinirole HCl (Ropinirole Hcl 1 Mg Tablet) 1 mg PO BEDTIME [facility] Last Admin: 03/17/23 21:12 Dose: 1 mg Tiotropium [place] (Tiotropium [place] 18 Mcg Cap.W.Dev) 1 puff INHALE RDAILY [facility] Last Admin: 03/18/23 08:18 Dose: 1 puff Trazodone HCl (Trazodone Hcl 50 Mg Tablet) 50 mg PO BEDTIME MRX1 PRN PRN Reason: Insomnia Valacyclovir HCl (Valacyclovir Hcl 1,000 Mg Tablet) 1,000 mg PO BID [facility] Last Admin: 03/18/23 08:19 Dose: 1,000 mg Vitamin D (Cholecalciferol (Vitamin D3) 25 Mcg Tablet) 25 mcg PO DAILY [facility] Last Admin: 03/18/23 08:20 Dose: 25 mcg Allergies Allergies Allergy/AdvReac Type Severity Reaction Status Date / Time ampicillin Allergy Rash Verified 12/26/22 10:32 Penicillins Allergy Anaphylaxis Verified 03/15/23 17:49 latex AdvReac Rash Verified 03/15/23 17:49 Latex, Natural Rubber AdvReac Rash Verified 03/15/23 17:49 seafood AdvReac Stomach Verified 12/26/22 10:32 Upset Sulfa (Sulfonamide AdvReac Hives Verified 03/15/23 17:49 Antibiotics) Assessment & Plan Assessment & Plan (1) Bipolar I disorder: Status: Chronic Code(s): F31.9 - Bipolar disorder, unspecified Plan Ms. 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 She reports feeling better, no AH/VH. She has been more stable recently than what she used to be and apparently using less substances. We discussed risks, benefits and alternative treatment options. Pt wants to simply med regimen, which seems reasonable. 03/18- d/c trileptal, d/c wellbutrin. continue lithium and olanzapine. Reason for continued inpatient stay Substantial Risk for: inability to function Time Spent With Patient Time: Total time managing care of this patient today ____ minutes.
[2023-03-18 10:51] LABS: Syphilis Screen Nonreactive (Nonreactive); ~HepC Num1 0.07 S/CO (0.00-0.79); ~Hepatitis C Antibody Nonreactive (Nonreactive)
[2023-03-18 11:40] LABS: CT PCR NOT DETECTED (Not Detect.); NG PCR NOT DETECTED (Not Detect.)
[2023-03-18 11:47] VITALS: PULSE 83; RESP 20; O2SAT 94
[2023-03-18 18:00] VITALS: BP 120/70; PULSE 91; TEMP 36.7; O2SAT 91
[2023-03-18 18:07] VITALS: PULSE 85; RESP 20; O2SAT 96
[2023-03-18] MEDS: Gabapentin 600 MG TABLET 300 MG PO (20:29)
[2023-03-18] MEDS: Lithium Carbonate ER 300 MG TABLET.ER 1200 MG PO (20:29)
[2023-03-18] MEDS: rOPINIRole HCL 1 MG TABLET PO (20:31)
[2023-03-18] MEDS: cloNIDine HCL 0.2 MG TABLET PO (20:31)
[2023-03-18] MEDS: OLANZapine 10 MG TABLET PO (20:31)
[2023-03-18] MEDS: Clotrimazole 1 % Vaginal Cream 45 GM TUBE 1 APPL VAGINAL (23:06)
[2023-03-18 23:44] VITALS: O2SAT 91
[2023-03-19] MEDS: Capsaicin 0.025% Cream 60 GM TUBE 1 APPL TOPICAL ×2 (05:27→21:27)
[2023-03-19 06:18] VITALS: PULSE 81; O2SAT 94
[2023-03-19] MEDS: Albuterol/Iprat 2.5/0.5MG 3 ML AMPUL.NEB INHALE ×2 (06:18→11:45)
[2023-03-19 08:15] VITALS: BP 107/60; PULSE 84; RESP 18; TEMP 36.6; O2SAT 95
[2023-03-19] MEDS: Omeprazole 20 MG CAPSULE.DR PO (09:02)
[2023-03-19] MEDS: Ferrous Sulfate 324 MG TABLET.DR PO (09:02)
[2023-03-19] MEDS: Cyanocobalamin (Vitamin B-12) 100 MCG TABLET PO (09:02)
[2023-03-19] MEDS: Cholecalciferol (Vitamin D3) 25 MCG TABLET PO (09:02)
[2023-03-19] MEDS: Doxycycline Monohydrate 100 MG CAPSULE PO (09:02)
[2023-03-19] MEDS: metroNIDAZOLE 500 MG TABLET PO ×2 (09:03→21:12)
[2023-03-19] MEDS: valACYclovir HCL 1,000 MG TABLET 1000 MG PO ×2 (09:03→21:12)
[2023-03-19] MEDS: Benztropine Mesylate 1 MG TABLET PO ×2 (09:03→21:12)
[2023-03-19] MEDS: Nicotine 14 MG PATCH.TD24 TRANSDERMA (09:05)
--- NOTE | 2023-03-19 09:16 | HO.PSYCHPN ---
Subjective Subjective Date of Service: 03/19/23 Reason For Visit: psychiatric symptoms Subjective Notes: Conditional Voluntary Healthcare Proxy: No Guardianship: No Medical Problems Affecting Mental Status: No Interim History: Patient was seen and discussed in rounds today. Records and plans were reviewed. She has been stable and is doing better and is in a better mental state. She denies any command hallucinations or suicidal ideations. She is pleasant. No shortness of breath. She was interested in changing some of her medications and I encouraged her to talk to her doctor on Tuesday. Eating and sleeping adequately. No changes were made today Medication Compliance: Yes Side effects from medications: No Review of Systems Review of Systems Yes all other systems are reviewed and are negative Mental Status Exam Mental Status Exam Narrative: In today's visit she is alert, oriented and pleasant. Normal speech. Good eye contact. Appropriate affect. No signs of psychosis. No SI/HI. Cognitively is grossly intact. Judgment is intact Diagnostics Vital Signs (24Hr): Vital Signs - 24 hr 03/18/23 11:47 03/18/23 18:07 03/18/23 18:00 Temperature 98.1 F Pulse Rate 83 85 91 Respiratory Rate 20 20 Blood Pressure 120/70 Pulse Oximetry 91 L Oxygen Delivery Method Room Air 03/19/23 06:18 Temperature Pulse Rate 81 Respiratory Rate Blood Pressure Pulse Oximetry Oxygen Delivery Method BMI result Body Mass Index 44.4 Labs 03/15/23 19:26 03/17/23 09:53 Labs: Laboratory Results - last 48 hr 03/17/23 03/17/23 03/17/23 09:53 09:53 16:25 Sodium 139 Potassium 4.2 Chloride 103 Carbon Dioxide 26 Anion Gap 14 BUN 14 Creatinine 0.75 Estim Creat Clear Calc 99.5 Estimated GFR > 60 Fasting Glucose 125 H Estimat Average Glucose 103 Hemoglobin A1c % 5.2 Calcium 9.9 Total Bilirubin 0.3 AST 11 ALT 14 Alkaline Phosphatase 70 Total Protein 6.2 L Albumin 3.9 Triglycerides 301 Cholesterol 195 LDL Cholesterol, Calc 85 HDL Cholesterol 50 Vitamin B12 716 Folate 7.1 TSH 0.71 Free T4 1.00 T.pallidum Ab (EIA) Chlam trachomat DNA PCR NOT DETECTED Hepatitis C Ab (EIA) N.gonorrhoeae DNA (PCR) NOT DETECTED 03/18/23 03/18/23 03/18/23 08:45 09:58 09:58 Sodium Potassium Chloride Carbon Dioxide Anion Gap BUN Creatinine Estim Creat Clear Calc Estimated GFR Fasting Glucose Estimat Average Glucose Hemoglobin A1c % Calcium Total Bilirubin AST ALT Alkaline Phosphatase Total Protein Albumin Triglycerides Cholesterol LDL Cholesterol, Calc HDL Cholesterol Vitamin B12 Folate TSH Free T4 T.pallidum Ab (EIA) Nonreactive Chlam trachomat DNA PCR NOT DETECTED Hepatitis C Ab (EIA) Nonreactive N.gonorrhoeae DNA (PCR) NOT DETECTED Medications Medications Current Medications Acetaminophen (Acetaminophen 325 Mg Tablet) 650 mg PO Q8H PRN PRN Reason: Pain, Moderate(Pain Scale 4-6) Last Admin: 03/17/23 06:08 Dose: 650 mg Al Hydroxide/Mg Hydroxide (Magnesium Hydrox/Alum Hydrox 30 Ml Oral.Susp) 30 ml PO Q6H PRN PRN Reason: Heartburn/Nausea Albuterol Sulfate (Albuterol Sulfate 90 Mcg 8 Gm Inhaler) 2 puff INHALE Q4H PRN PRN Reason: shortness of breath or wheezing Last Admin: 03/17/23 20:25 Dose: 2 puff Albuterol/Ipratropium (Albuterol/Iprat 2.5/0.5mg 3 Ml Ampul.Neb) 3 ml INHALE RQ6H TEJA Last Admin: 03/19/23 06:18 Dose: 3 ml Benztropine Mesylate (Benztropine Mesylate 1 Mg Tablet) 1 mg PO BID [facility] Last Admin: 03/19/23 09:03 Dose: 1 mg Capsaicin (Capsaicin 0.025% Cream 60 Gm Tube) 1 appl TOPICAL QID PRN; Protocol PRN Reason: Pain, Mild (Pain Scale 1-3) Last Admin: 03/19/23 05:27 Dose: 1 appl Clonidine HCl (Clonidine Hcl 0.2 Mg Tablet) 0.2 mg PO BEDTIME TEJA; Protocol Last Admin: 03/18/23 20:31 Dose: 0.2 mg Clotrimazole (Clotrimazole 1 % Vaginal Cream 45 Gm Tube) 1 appl VAGINAL BEDTIME TEJA Stop: 03/20/23 21:01 Last Admin: 03/18/23 23:06 Dose: 1 appl Cyanocobalamin (Cyanocobalamin (Vitamin B-12) 100 Mcg Tablet) 100 mcg PO DAILY [facility] Last Admin: 03/19/23 09:02 Dose: 100 mcg Doxycycline Monohydrate (Doxycycline Monohydrate 100 Mg Capsule) 100 mg PO BID TEJA Stop: 03/19/23 20:59 Last Admin: 03/19/23 09:02 Dose: 100 mg Ferrous Sulfate (Ferrous Sulfate 324 Mg Tablet.) 324 mg PO DAILY [facility] Last Admin: 03/19/23 09:02 Dose: 324 mg Gabapentin (Gabapentin 300 Mg Capsule) 300 mg PO BEDTIME [facility] Hydroxyzine HCl (Hydroxyzine Hcl 25 Mg Tablet) 25 mg PO Q6H PRN PRN Reason: Anxiety Last Admin: 03/16/23 19:03 Dose: 25 mg [place] Carbonate ([place] Carbonate Er 300 Mg Tablet.Er) 1,200 mg PO BEDTIME [facility] Last Admin: 03/18/23 20:29 Dose: 1,200 mg Magnesium Hydroxide (Milk Of Magnesia 30 Ml Oral.Susp) 30 ml PO DAILY PRN PRN Reason: Constipation Last Admin: 03/17/23 09:25 Dose: 30 ml Metronidazole (Metronidazole 500 Mg Tablet) 500 mg PO Q12H [facility] Stop: 03/25/23 08:43 Last Admin: 03/19/23 09:03 Dose: 500 mg Nicotine (Nicotine 14 Mg Patch.Td24) 14 mg TRANSDERMA DAILY [facility] Last Admin: 03/19/23 09:05 Dose: 14 mg Nicotine Polacrilex (Nicotine Polacrilex 2 Mg Gum) 4 mg BUCCAL Q2H PRN PRN Reason: Nicotine Cravings Olanzapine (Olanzapine 10 Mg Tablet) 10 mg PO BEDTIME [facility] Last Admin: 03/18/23 20:31 Dose: 10 mg Omeprazole (Omeprazole 20 Mg Capsule.) 20 mg PO DAILY@0630 [facility] Last Admin: 03/19/23 09:02 Dose: 20 mg Ropinirole HCl (Ropinirole Hcl 1 Mg Tablet) 1 mg PO BEDTIME [facility] Last Admin: 03/18/23 20:31 Dose: 1 mg Tiotropium [place] (Tiotropium [place] 18 Mcg Cap.W.Dev) 1 puff INHALE RDAILY [facility] Last Admin: 03/19/23 09:04 Dose: 1 puff Trazodone HCl (Trazodone Hcl 50 Mg Tablet) 50 mg PO BEDTIME MRX1 PRN PRN Reason: Insomnia Valacyclovir HCl (Valacyclovir Hcl 1,000 Mg Tablet) 1,000 mg PO BID [facility] Last Admin: 03/19/23 09:03 Dose: 1,000 mg Vitamin D (Cholecalciferol (Vitamin D3) 25 Mcg Tablet) 25 mcg PO DAILY TEJA Last Admin: 03/19/23 09:02 Dose: 25 mcg Allergies Allergies Allergy/AdvReac Type Severity Reaction Status Date / Time ampicillin Allergy Rash Verified 12/26/22 10:32 Penicillins Allergy Anaphylaxis Verified 03/15/23 17:49 latex AdvReac Rash Verified 03/15/23 17:49 Latex, Natural Rubber AdvReac Rash Verified 03/15/23 17:49 seafood AdvReac Stomach Verified 12/26/22 10:32 Upset Sulfa (Sulfonamide AdvReac Hives Verified 03/15/23 17:49 Antibiotics) Assessment & Plan Assessment & Plan (1) Bipolar I disorder: Status: Chronic Code(s): F31.9 - Bipolar disorder, unspecified Plan Ms. 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 She reports feeling better, no AH/VH. She has been more stable recently than what she used to be and apparently using less substances. We discussed risks, benefits and alternative treatment options. Pt wants to simply med regimen, which seems reasonable. 03/18- d/c trileptal, d/c wellbutrin. continue lithium and olanzapine. 03/19: Continue current regimen and Reason for continued inpatient stay Substantial Risk for: med/psych decompensation Time Spent With Patient Time: Total time managing care of this patient today ____ minutes.
[2023-03-19 11:45] VITALS: PULSE 84; RESP 16; O2SAT 95
[2023-03-19] MEDS: hydrOXYzine HCL 25 MG TABLET PO ×2 (11:58→21:12)
[2023-03-19 12:05] LABS: BV Int Neg Control Negative (Negative); BV Int Pos Control Positive (Positive)
[2023-03-19 21:04] VITALS: BP 121/75; PULSE 87; TEMP 36.6; O2SAT 94
[2023-03-19] MEDS: Lithium Carbonate ER 300 MG TABLET.ER 1200 MG PO (21:11)
[2023-03-19] MEDS: Gabapentin 300 MG CAPSULE PO (21:12)
[2023-03-19] MEDS: rOPINIRole HCL 1 MG TABLET PO (21:12)
[2023-03-19] MEDS: OLANZapine 10 MG TABLET PO (21:12)
[2023-03-19] MEDS: cloNIDine HCL 0.2 MG TABLET PO (21:12)
[2023-03-19] MEDS: Clotrimazole 1 % Vaginal Cream 45 GM TUBE 1 APPL VAGINAL (21:27)
[2023-03-19 23:04] VITALS: PULSE 84; RESP 21; O2SAT 91
[2023-03-20] MEDS: Capsaicin 0.025% Cream 60 GM TUBE 1 APPL TOPICAL (05:20)
[2023-03-20 06:33] VITALS: PULSE 76; O2SAT 96
--- NOTE | 2023-03-20 08:16 | HO.PSYCHPN ---
Subjective Subjective Date of Service: 03/20/23 Reason For Visit: psychiatric symptoms Subjective Notes: Conditional Voluntary Healthcare Proxy: No Guardianship: No Medical Problems Affecting Mental Status: No Interim History: Patient was seen and discussed in rounds today. Records and plans were reviewed. She has been doing well and is done with her antibiotic treatment for the antecubital infection. There is no redness, slight heat and a small streak of hard tissue underneath. She has been visible. Some anxiety at times. No auditory or visual hallucinations. Eating and sleeping adequately. No changes were made today Medication Compliance: Yes Side effects from medications: No Review of Systems Review of Systems Yes all other systems are reviewed and are negative Mental Status Exam Mental Status Exam Narrative: In today's visit she is alert, oriented and pleasant. Normal speech. Good eye contact. Appropriate affect. No signs of psychosis. No SI/HI. Cognitively is grossly intact. Judgment is intact Diagnostics Vital Signs (24Hr): Vital Signs - 24 hr 03/19/23 11:45 03/19/23 21:04 03/19/23 23:04 Temperature 97.9 F Pulse Rate 84 87 Respiratory Rate 16 21 H Blood Pressure 121/75 Pulse Oximetry 94 Oxygen Delivery Method Room Air 03/20/23 06:33 Temperature Pulse Rate 76 Respiratory Rate Blood Pressure Pulse Oximetry Oxygen Delivery Method BMI result Body Mass Index 44.4 Labs 03/15/23 19:26 03/17/23 09:53 Labs: Laboratory Results - last 48 hr 03/18/23 03/18/23 03/18/23 08:45 08:45 09:58 T.pallidum Ab (EIA) Nonreactive [place] species DNA Negative Chlam trachomat DNA PCR NOT DETECTED [place]rella DNA Probe Positive A Hepatitis C Ab (EIA) N.gonorrhoeae DNA (PCR) NOT DETECTED Trichomonas DNA Probe Positive A 03/18/23 09:58 T.pallidum Ab (EIA) [place] species DNA Chlam trachomat DNA PCR [place]rella DNA Probe Hepatitis C Ab (EIA) Nonreactive N.gonorrhoeae DNA (PCR) Trichomonas DNA Probe Medications Medications Current Medications Acetaminophen (Acetaminophen 325 Mg Tablet) 650 mg PO Q8H PRN PRN Reason: Pain, Moderate(Pain Scale 4-6) Last Admin: 03/17/23 06:08 Dose: 650 mg Al Hydroxide/Mg Hydroxide (Magnesium Hydrox/Alum Hydrox 30 Ml Oral.Susp) 30 ml PO Q6H PRN PRN Reason: Heartburn/Nausea Albuterol Sulfate (Albuterol Sulfate 90 Mcg 8 Gm Inhaler) 2 puff INHALE Q4H PRN PRN Reason: shortness of breath or wheezing Last Admin: 03/17/23 20:25 Dose: 2 puff Albuterol/Ipratropium (Albuterol/Iprat 2.5/0.5mg 3 Ml Ampul.Neb) 3 ml INHALE RQ6H TEJA Last Admin: 03/19/23 23:04 Dose: Not Given Benztropine Mesylate (Benztropine Mesylate 1 Mg Tablet) 1 mg PO BID TEJA Last Admin: 03/19/23 21:12 Dose: 1 mg Capsaicin (Capsaicin 0.025% Cream 60 Gm Tube) 1 appl TOPICAL QID PRN; Protocol PRN Reason: Pain, Mild (Pain Scale 1-3) Last Admin: 03/20/23 05:20 Dose: 1 appl Clonidine HCl (Clonidine Hcl 0.2 Mg Tablet) 0.2 mg PO BEDTIME TEJA; Protocol Last Admin: 03/19/23 21:12 Dose: 0.2 mg Clotrimazole (Clotrimazole 1 % Vaginal Cream 45 Gm Tube) 1 appl VAGINAL BEDTIME TEJA Stop: 03/20/23 21:01 Last Admin: 03/19/23 21:27 Dose: 1 appl Cyanocobalamin (Cyanocobalamin (Vitamin B-12) 100 Mcg Tablet) 100 mcg PO DAILY TEJA Last Admin: 03/19/23 09:02 Dose: 100 mcg Ferrous Sulfate (Ferrous Sulfate 324 Mg Tablet.Dr) 324 mg PO DAILY TEJA Last Admin: 03/19/23 09:02 Dose: 324 mg Gabapentin (Gabapentin 300 Mg Capsule) 300 mg PO BEDTIME TEJA Last Admin: 03/19/23 21:12 Dose: 300 mg Hydroxyzine HCl (Hydroxyzine Hcl 25 Mg Tablet) 25 mg PO Q6H PRN PRN Reason: Anxiety Last Admin: 03/19/23 21:12 Dose: 25 mg [place] Carbonate ([place] Carbonate Er 300 Mg Tablet.Er) 1,200 mg PO BEDTIME TEJA Last Admin: 03/19/23 21:11 Dose: 1,200 mg Magnesium Hydroxide (Milk Of Magnesia 30 Ml Oral.Susp) 30 ml PO DAILY PRN PRN Reason: Constipation Last Admin: 03/17/23 09:25 Dose: 30 ml Metronidazole (Metronidazole 500 Mg Tablet) 500 mg PO Q12H [facility] Stop: 03/25/23 08:43 Last Admin: 03/19/23 21:12 Dose: 500 mg Nicotine (Nicotine 14 Mg Patch.Td24) 14 mg TRANSDERMA DAILY [facility] Last Admin: 03/19/23 09:05 Dose: 14 mg Nicotine Polacrilex (Nicotine Polacrilex 2 Mg Gum) 4 mg BUCCAL Q2H PRN PRN Reason: Nicotine Cravings Olanzapine (Olanzapine 10 Mg Tablet) 10 mg PO BEDTIME [facility] Last Admin: 03/19/23 21:12 Dose: 10 mg Omeprazole (Omeprazole 20 Mg Capsule.Dr) 20 mg PO DAILY@0630 [facility] Last Admin: 03/19/23 09:02 Dose: 20 mg Ropinirole HCl (Ropinirole Hcl 1 Mg Tablet) 1 mg PO BEDTIME [facility] Last Admin: 03/19/23 21:12 Dose: 1 mg Tiotropium [place] (Tiotropium [place] 18 Mcg Cap.W.Dev) 1 puff INHALE RDAILY [facility] Last Admin: 03/19/23 09:04 Dose: 1 puff Trazodone HCl (Trazodone Hcl 50 Mg Tablet) 50 mg PO BEDTIME MRX1 PRN PRN Reason: Insomnia Valacyclovir HCl (Valacyclovir Hcl 1,000 Mg Tablet) 1,000 mg PO BID [facility] Last Admin: 03/19/23 21:12 Dose: 1,000 mg Vitamin D (Cholecalciferol (Vitamin D3) 25 Mcg Tablet) 25 mcg PO DAILY [facility] Last Admin: 03/19/23 09:02 Dose: 25 mcg Allergies Allergies Allergy/AdvReac Type Severity Reaction Status Date / Time ampicillin Allergy Rash Verified 12/26/22 10:32 Penicillins Allergy Anaphylaxis Verified 03/15/23 17:49 latex AdvReac Rash Verified 03/15/23 17:49 Latex, Natural Rubber AdvReac Rash Verified 03/15/23 17:49 seafood AdvReac Stomach Verified 12/26/22 10:32 Upset Sulfa (Sulfonamide AdvReac Hives Verified 03/15/23 17:49 Antibiotics) Assessment & Plan Assessment & Plan (1) Bipolar I disorder: Status: Chronic Code(s): F31.9 - Bipolar disorder, unspecified Plan Ms. 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 She reports feeling better, no AH/VH. She has been more stable recently than what she used to be and apparently using less substances. We discussed risks, benefits and alternative treatment options. Pt wants to simply med regimen, which seems reasonable. 03/18- d/c trileptal, d/c wellbutrin. continue lithium and olanzapine. 03/19: Continue current regimen 03/20: Continue current regimen and plans Reason for continued inpatient stay Substantial Risk for: med/psych decompensation Time Spent With Patient Time: Total time managing care of this patient today ____ minutes.
[2023-03-20 08:20] VITALS: BP 101/65; PULSE 72; RESP 18; TEMP 36.6; O2SAT 94
[2023-03-20] MEDS: Cholecalciferol (Vitamin D3) 25 MCG TABLET PO (08:52)
[2023-03-20] MEDS: Benztropine Mesylate 1 MG TABLET PO ×2 (08:52→20:42)
[2023-03-20] MEDS: Cyanocobalamin (Vitamin B-12) 100 MCG TABLET PO (08:53)
[2023-03-20] MEDS: valACYclovir HCL 1,000 MG TABLET 1000 MG PO ×2 (08:53→20:42)
[2023-03-20] MEDS: metroNIDAZOLE 500 MG TABLET PO ×2 (08:53→20:41)
[2023-03-20] MEDS: Ferrous Sulfate 324 MG TABLET.DR PO (08:54)
[2023-03-20] MEDS: Omeprazole 20 MG CAPSULE.DR PO (08:55)
[2023-03-20] MEDS: Nicotine 14 MG PATCH.TD24 TRANSDERMA (08:55)
[2023-03-20] MEDS: Acetaminophen 325 MG TABLET 650 MG PO ×2 (13:00→20:43)
[2023-03-20] MEDS: hydrOXYzine HCL 25 MG TABLET PO (16:28)
[2023-03-20] MEDS: Albuterol/Iprat 2.5/0.5MG 3 ML AMPUL.NEB INHALE ×2 (16:35→22:14)
--- NOTE | 2023-03-20 17:18 | PC.NURSE ---
Pt resting in bed with head elevated, reports feeling better after updraft treatment . No signs or symptoms of distress respirations, 18 and unlabored.
[2023-03-20 20:35] VITALS: BP 134/72; PULSE 85; RESP 18; TEMP 36.4; O2SAT 95
[2023-03-20] MEDS: OLANZapine 10 MG TABLET PO (20:41)
[2023-03-20] MEDS: Lithium Carbonate ER 300 MG TABLET.ER 1200 MG PO (20:42)
[2023-03-20] MEDS: cloNIDine HCL 0.2 MG TABLET PO (20:42)
[2023-03-20] MEDS: Gabapentin 300 MG CAPSULE PO (20:42)
[2023-03-20] MEDS: rOPINIRole HCL 1 MG TABLET PO (20:42)
[2023-03-20] MEDS: Clotrimazole 1 % Vaginal Cream 45 GM TUBE 1 APPL VAGINAL (21:05)
[2023-03-20 22:15] VITALS: PULSE 85; RESP 18; O2SAT 95
[2023-03-21 05:58] VITALS: PULSE 85; RESP 18; O2SAT 95
[2023-03-21] MEDS: Albuterol/Iprat 2.5/0.5MG 3 ML AMPUL.NEB INHALE ×3 (05:58→21:31)
[2023-03-21] MEDS: Omeprazole 20 MG CAPSULE.DR PO (06:40)
[2023-03-21 08:15] VITALS: BP 116/87; PULSE 82; RESP 18; TEMP 36.6; O2SAT 95
[2023-03-21] MEDS: Nicotine 14 MG PATCH.TD24 TRANSDERMA (08:55)
[2023-03-21] MEDS: Ferrous Sulfate 324 MG TABLET.DR PO (08:55)
[2023-03-21] MEDS: metroNIDAZOLE 500 MG TABLET PO ×2 (08:56→21:14)
[2023-03-21] MEDS: Cyanocobalamin (Vitamin B-12) 100 MCG TABLET PO (08:56)
[2023-03-21] MEDS: valACYclovir HCL 1,000 MG TABLET 1000 MG PO ×2 (08:57→21:14)
[2023-03-21] MEDS: Cholecalciferol (Vitamin D3) 25 MCG TABLET PO (08:57)
[2023-03-21] MEDS: Benztropine Mesylate 1 MG TABLET PO ×2 (08:57→21:15)
[2023-03-21 12:09] VITALS: PULSE 87; RESP 20; O2SAT 98
[2023-03-21] MEDS: hydrOXYzine HCL 25 MG TABLET PO (15:51)
--- NOTE | 2023-03-21 15:58 | P.PNPSI_ITS ---
Subjective Subjective Date of Service: 03/21/23 Reason For Visit: psychiatric symptoms Interim History: calm, cooperative. resigned to discharge tomorrow. feels content with her regimen. per staff, peasant, cooperative, bright. denies dep/anx/SI/HI/AVH. asking for discharge. social, + groups, meds, meals. no nightmares last NOC. slept well. Mental Status Exam Mental Status Exam Narrative: In today's visit she is alert, oriented and pleasant. Normal speech. Good eye contact. Appropriate affect. No signs of psychosis. No SI/HI. Cognitively is grossly intact. Judgment is intact Diagnostics Vital Signs (24Hr): Vital Signs - 24 hr 03/20/23 20:35 03/20/23 22:15 03/21/23 05:58 Temperature 97.6 F Pulse Rate 85 85 85 Respiratory Rate 18 18 18 Blood Pressure 134/72 Pulse Oximetry 95 Oxygen Delivery Method Room Air 03/21/23 08:15 03/21/23 12:09 Temperature 97.9 F Pulse Rate 82 87 Respiratory Rate 18 20 Blood Pressure 116/87 Pulse Oximetry 95 Oxygen Delivery Method Room Air BMI result Body Mass Index 44.4 Labs 03/15/23 19:26 03/17/23 09:53 Medications Medications Current Medications Acetaminophen (Acetaminophen 325 Mg Tablet) 650 mg PO Q8H PRN PRN Reason: Pain, Moderate(Pain Scale 4-6) Last Admin: 03/20/23 20:43 Dose: 650 mg Al Hydroxide/Mg Hydroxide (Magnesium Hydrox/Alum Hydrox 30 Ml Oral.Susp) 30 ml PO Q6H PRN PRN Reason: Heartburn/Nausea Albuterol Sulfate (Albuterol Sulfate 90 Mcg 8 Gm Inhaler) 2 puff INHALE Q4H PRN PRN Reason: shortness of breath or wheezing Last Admin: 03/17/23 20:25 Dose: 2 puff Albuterol/Ipratropium (Albuterol/Iprat 2.5/0.5mg 3 Ml Ampul.Neb) 3 ml INHALE RQ6H TEJA Last Admin: 03/21/23 12:09 Dose: 3 ml Benztropine Mesylate (Benztropine Mesylate 1 Mg Tablet) 1 mg PO BID [facility] Last Admin: 03/21/23 08:57 Dose: 1 mg Capsaicin (Capsaicin 0.025% Cream 60 Gm Tube) 1 appl TOPICAL QID PRN; Protocol PRN Reason: Pain, Mild (Pain Scale 1-3) Last Admin: 03/20/23 05:20 Dose: 1 appl Clonidine HCl (Clonidine Hcl 0.2 Mg Tablet) 0.2 mg PO BEDTIME [facility]; Protocol Last Admin: 03/20/23 20:42 Dose: 0.2 mg Cyanocobalamin (Cyanocobalamin (Vitamin B-12) 100 Mcg Tablet) 100 mcg PO DAILY [facility] Last Admin: 03/21/23 08:56 Dose: 100 mcg Ferrous Sulfate (Ferrous Sulfate 324 Mg Tablet.) 324 mg PO DAILY TEJA Last Admin: 03/21/23 08:55 Dose: 324 mg Gabapentin (Gabapentin 300 Mg Capsule) 300 mg PO BEDTIME TEJA Last Admin: 03/20/23 20:42 Dose: 300 mg Hydroxyzine HCl (Hydroxyzine Hcl 25 Mg Tablet) 25 mg PO Q6H PRN PRN Reason: Anxiety Last Admin: 03/21/23 15:51 Dose: 25 mg [place] Carbonate ([place] Carbonate Er 300 Mg Tablet.Er) 1,200 mg PO BEDTIME [facility] Last Admin: 03/20/23 20:42 Dose: 1,200 mg Magnesium Hydroxide (Milk Of Magnesia 30 Ml Oral.Susp) 30 ml PO DAILY PRN PRN Reason: Constipation Last Admin: 03/17/23 09:25 Dose: 30 ml Metronidazole (Metronidazole 500 Mg Tablet) 500 mg PO Q12H [facility] Stop: 03/25/23 08:43 Last Admin: 03/21/23 08:56 Dose: 500 mg Nicotine (Nicotine 14 Mg Patch.Td24) 14 mg TRANSDERMA DAILY [facility] Last Admin: 03/21/23 08:55 Dose: 14 mg Nicotine Polacrilex (Nicotine Polacrilex 2 Mg Gum) 4 mg BUCCAL Q2H PRN PRN Reason: Nicotine Cravings Olanzapine (Olanzapine 10 Mg Tablet) 10 mg PO BEDTIME [facility] Last Admin: 03/20/23 20:41 Dose: 10 mg Omeprazole (Omeprazole 20 Mg Capsule.) 20 mg PO DAILY@0630 [facility] Last Admin: 03/21/23 06:40 Dose: 20 mg Ropinirole HCl (Ropinirole Hcl 1 Mg Tablet) 1 mg PO BEDTIME [facility] Last Admin: 03/20/23 20:42 Dose: 1 mg Tiotropium [place] (Tiotropium [place] 18 Mcg Cap.W.Dev) 1 puff INHALE RDAILY [facility] Last Admin: 03/21/23 08:57 Dose: 1 puff Trazodone HCl (Trazodone Hcl 50 Mg Tablet) 50 mg PO BEDTIME MRX1 PRN PRN Reason: Insomnia Valacyclovir HCl (Valacyclovir Hcl 1,000 Mg Tablet) 1,000 mg PO BID [facility] Last Admin: 03/21/23 08:57 Dose: 1,000 mg Vitamin D (Cholecalciferol (Vitamin D3) 25 Mcg Tablet) 25 mcg PO DAILY [facility] Last Admin: 03/21/23 08:57 Dose: 25 mcg Allergies Allergies Allergy/AdvReac Type Severity Reaction Status Date / Time ampicillin Allergy Rash Verified 12/26/22 10:32 Penicillins Allergy Anaphylaxis Verified 03/15/23 17:49 latex AdvReac Rash Verified 03/15/23 17:49 Latex, Natural Rubber AdvReac Rash Verified 03/15/23 17:49 seafood AdvReac Stomach Verified 12/26/22 10:32 Upset Sulfa (Sulfonamide AdvReac Hives Verified 03/15/23 17:49 Antibiotics) Assessment & Plan Assessment & Plan (1) Bipolar I disorder: Status: Chronic Code(s): F31.9 - Bipolar disorder, unspecified Plan Ms. 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 She reports feeling better, no AH/VH. She has been more stable recently than what she used to be and apparently using less substances. We discussed risks, benefits and alternative treatment options. Pt wants to simply med regimen, which seems reasonable. 03/18- d/c trileptal, d/c wellbutrin. continue lithium and olanzapine. 03/19: Continue current regimen 03/20: Continue current regimen and plans 03/21: Continue current regimen and plans. discharge tomorrow. Reason for continued inpatient stay Substantial Risk for: stable for discharge Time Spent With Patient Time: Total time managing care of this patient today ____ minutes.
[2023-03-21] MEDS: Gabapentin 100 MG CAPSULE 200 MG PO (18:32)
[2023-03-21] MEDS: OLANZapine 5 MG TABLET PO (18:32)
[2023-03-21 20:35] VITALS: BP 133/83; PULSE 90; RESP 18; TEMP 36.5; O2SAT 96
[2023-03-21] MEDS: Gabapentin 300 MG CAPSULE PO (21:14)
[2023-03-21] MEDS: cloNIDine HCL 0.2 MG TABLET PO (21:14)
[2023-03-21] MEDS: Lithium Carbonate ER 300 MG TABLET.ER 1200 MG PO (21:15)
[2023-03-21] MEDS: rOPINIRole HCL 1 MG TABLET PO (21:15)
[2023-03-21] MEDS: OLANZapine 10 MG TABLET PO (21:15)
[2023-03-21 21:32] VITALS: PULSE 87; RESP 20; O2SAT 98
--- NOTE | 2023-03-22 04:01 | PC.NURSE ---
Bhavana appeared to be sleeping until approximately 2100 at that time she awoke and took her HS medications she c/o wheezing and received a respiratory treatment with positive effect. patient denies depression/anxiety, suicidal/homicidal ideation, and auditory/visual hallucinations. no behavioral concerns she states that she can't wait to go home and is hopeful to be discharged before 11am. monitor for safety, continue Plan of Care
[2023-03-22] MEDS: Omeprazole 20 MG CAPSULE.DR PO (06:21)
[2023-03-22 08:00] VITALS: BP 106/61; PULSE 80; RESP 18; TEMP 36.6; O2SAT 94
[2023-03-22] MEDS: Ferrous Sulfate 324 MG TABLET.DR PO (08:31)
[2023-03-22] MEDS: Cholecalciferol (Vitamin D3) 25 MCG TABLET PO (08:31)
[2023-03-22] MEDS: valACYclovir HCL 1,000 MG TABLET 1000 MG PO (08:31)
[2023-03-22] MEDS: metroNIDAZOLE 500 MG TABLET PO (08:31)
[2023-03-22] MEDS: Cyanocobalamin (Vitamin B-12) 100 MCG TABLET PO (08:31)
[2023-03-22] MEDS: Benztropine Mesylate 1 MG TABLET PO (08:31)
[2023-03-22 08:37] VITALS: PULSE 86; RESP 18; O2SAT 98
[2023-03-22] MEDS: Albuterol/Iprat 2.5/0.5MG 3 ML AMPUL.NEB INHALE (08:37)
--- NOTE | 2023-03-22 10:02 | PM.PSYDC ---
DS: Providers Provider Date of Service: 03/22/23 Date of admission: 03/16/23 15:53 Primary care physician: [facility] Consults: 03/17/23 15:39 Consult to Obstetrics / Gynecology Routine Consulting Provider: Wicho Rodriguez Reason for consultation: BV panel collection s/s possible genitourinary infection DS: Diagnosis Discharge Diagnosis (1) Bipolar I disorder: Status: Chronic DS: Medications Discharge Medications Home Medications: Previous Rx's Medication Instructions Recorded albuterol sulfate 90 mcg/actuation 2 puff inhalation Q4H PRN 03/22/23 aerosol inhaler (Ventolin HFA) shortness of breath or wheezing #6.7 grams cholecalciferol (vitamin D3) 25 25 mcg PO DAILY #30 tabs 03/22/23 mcg (1,000 unit) tablet clonidine HCl 0.2 mg tablet 0.2 mg PO BEDTIME #30 tabs 03/22/23 cyanocobalamin (vitamin B-12) 100 100 mcg PO DAILY #30 tabs 03/22/23 mcg tablet (Vitamin B-12) ferrous sulfate 324 mg (65 mg 324 mg PO DAILY #30 tabs 03/22/23 iron) tablet,delayed release gabapentin 300 mg capsule 300 mg PO BEDTIME #30 caps 03/22/23 ipratropium 0.5 mg-albuterol 3 mg 3 ml inhalation RQ6H #90 mL 03/22/23 (2.5 mg base)/3 mL nebulization soln lithium carbonate 450 mg 1,350 mg PO BEDTIME #90 tabs 03/22/23 tablet,extended release metronidazole 500 mg tablet 500 mg PO Q12H #14 tabs 03/22/23 nicotine 14 mg/24 hr daily 14 mg transdermal DAILY #30 ea 03/22/23 transdermal patch olanzapine 10 mg tablet 10 mg PO BEDTIME #30 tabs 03/22/23 omeprazole 20 mg capsule,delayed 20 mg PO DAILY@0630 #30 caps 03/22/23 release ropinirole 1 mg tablet 1 mg PO BEDTIME #30 tabs 03/22/23 tiotropium bromide 18 mcg capsule 18 mcg inhalation RDAILY #20 03/22/23 with inhalation device (Spiriva inhalations with HandiHaler) valacyclovir 1 gram tablet 1,000 mg PO BID #30 tabs 03/22/23 Mental Status Exam Mental Status Exam Narrative: Appearance: casually groomed, good hygiene, in NAD Behavior: cooperative PSychomotor: no agitation or retardation noted Speech: clear, normal rate/rhythm/volume, spontaneous TP: linear TC: without over psychosis or delusions. feeling better, wanting help and short admission Mood: better Affect: congruent, brighter, non labile SI: denies HI: denies VH/AH: none Delusions: none Insight/judgment: fair x 2 memory/cog: alert, oriented x 3. Data Data Completed and Pending Completed studies during hospitalization [Text1]: 03/15/23 03/15/23 03/15/23 17:59 17:59 17:59 WBC RBC Hgb Hct MCV MCH MCHC RDW Plt Count MPV Immature Gran % (Auto) Neut % (Auto) Lymph % (Auto) [place] % (Auto) Eos % (Auto) Baso % (Auto) Lymph # (Auto) [place] # (Auto) Eos # (Auto) Baso # (Auto) Abs Immat Gran (auto) Absolute Neuts (auto) Absolute Nucleated RBC Nucleated RBC % (auto) Sodium Potassium Chloride Carbon Dioxide Anion Gap BUN Creatinine Estim Creat Clear Calc Estimated GFR Random Glucose Fasting Glucose Estimat Average Glucose Hemoglobin A1c % Calcium Total Bilirubin AST ALT Alkaline Phosphatase Total Protein Albumin Triglycerides Cholesterol LDL Cholesterol, Calc HDL Cholesterol Vitamin B12 Folate TSH Free T4 Urine Color Dark Yellow Urine Appearance Cloudy Urine pH 6.0 Ur Specific [place] 1.025 Urine Protein 30 (1+) H Urine Glucose (UA) Negative Urine Ketones Trace Urine Blood Negative Urine Nitrite Negative Ur Leukocyte Esterase Large (3+) H Urine RBC 0-2 Urine WBC >50 H Ur Squamous Epith Cells >20 Urine Bacteria 1+ Hyaline Casts 0-2 Urine Opiates Screen Not Detected Urine Fentanyl Screen Not Detected Ur Barbiturates Screen Not Detected Ur Phencyclidine Scrn Not Detected Ur Amphetamines Screen Not Detected U Benzodiazepines Scrn Not Detected [place] Urine Cocaine Screen Not Detected U Marijuana (THC) Screen Not Detected Ethyl Alcohol T.pallidum Ab (EIA) Tootie species DNA Chlam trachomat DNA PCR COVID-19 (ENDY) Negative COVID-19 Clin Com See Note [place]rella DNA Probe Hepatitis C Ab (EIA) N.gonorrhoeae DNA (PCR) Trichomonas DNA Probe 03/15/23 03/15/23 03/15/23 19:26 19:26 19:26 WBC 14.3 H RBC 4.40 Hgb 14.1 Hct 43.6 MCV 99.1 H MCH 32.0 MCHC 32.3 RDW 12.5 Plt Count 332 D MPV 9.2 L Immature Gran % (Auto) 0.6 H Neut % (Auto) 70.1 Lymph % (Auto) 21.3 [place] % (Auto) 5.3 Eos % (Auto) 2.0 Baso % (Auto) 0.7 Lymph # (Auto) 3.1 [place] # (Auto) 0.8 Eos # (Auto) 0.3 Baso # (Auto) 0.1 Abs Immat Gran (auto) 0.08 H Absolute Neuts (auto) 10.0 H Absolute Nucleated RBC 0.000 Nucleated RBC % (auto) 0.0 Sodium 139 Potassium 4.2 Chloride 104 Carbon Dioxide 27 Anion Gap 12 BUN 14 Creatinine 0.82 Estim Creat Clear Calc 91.0 Estimated GFR > 60 Random Glucose 103 Fasting Glucose Estimat Average Glucose Hemoglobin A1c % Calcium 9.6 Total Bilirubin 0.3 AST 12 ALT 16 Alkaline Phosphatase 81 Total Protein 6.4 L Albumin 4.1 Triglycerides Cholesterol LDL Cholesterol, Calc HDL Cholesterol Vitamin B12 Folate TSH Free T4 Urine Color Urine Appearance Urine pH Ur Specific [place] Urine Protein Urine Glucose (UA) Urine Ketones Urine Blood Urine Nitrite Ur Leukocyte Esterase Urine RBC Urine WBC Ur Squamous Epith Cells Urine Bacteria Hyaline Casts Urine Opiates Screen Urine Fentanyl Screen Ur Barbiturates Screen Ur Phencyclidine Scrn Ur Amphetamines Screen U Benzodiazepines Scrn [place] 0.93 Urine Cocaine Screen U Marijuana (THC) Screen Ethyl Alcohol < 10 T.pallidum Ab (EIA) Tootie species DNA Chlam trachomat DNA PCR COVID-19 (ENDY) COVID-19 Clin Com Gardnerella DNA Probe Hepatitis C Ab (EIA) N.gonorrhoeae DNA (PCR) Trichomonas DNA Probe 03/17/23 03/17/23 03/17/23 09:53 09:53 16:25 WBC RBC Hgb Hct MCV MCH MCHC RDW Plt Count MPV Immature Gran % (Auto) Neut % (Auto) Lymph % (Auto) [place] % (Auto) Eos % (Auto) Baso % (Auto) Lymph # (Auto) [place] # (Auto) Eos # (Auto) Baso # (Auto) Abs Immat Gran (auto) Absolute Neuts (auto) Absolute Nucleated RBC Nucleated RBC % (auto) Sodium 139 Potassium 4.2 Chloride 103 Carbon Dioxide 26 Anion Gap 14 BUN 14 Creatinine 0.75 Estim Creat Clear Calc 99.5 Estimated GFR > 60 Random Glucose Fasting Glucose 125 H Estimat Average Glucose 103 Hemoglobin A1c % 5.2 Calcium 9.9 Total Bilirubin 0.3 AST 11 ALT 14 Alkaline Phosphatase 70 Total Protein 6.2 L Albumin 3.9 Triglycerides 301 Cholesterol 195 LDL Cholesterol, Calc 85 HDL Cholesterol 50 Vitamin B12 716 Folate 7.1 TSH 0.71 Free T4 1.00 Urine Color Urine Appearance Urine pH Ur Specific [place] Urine Protein Urine Glucose (UA) Urine Ketones Urine Blood Urine Nitrite Ur Leukocyte Esterase Urine RBC Urine WBC Ur Squamous Epith Cells Urine Bacteria Hyaline Casts Urine Opiates Screen Urine Fentanyl Screen Ur Barbiturates Screen Ur Phencyclidine Scrn Ur Amphetamines Screen U Benzodiazepines Scrn [place] Urine Cocaine Screen U Marijuana (THC) Screen Ethyl Alcohol T.pallidum Ab (EIA) [place]ie species DNA Chlam trachomat DNA PCR NOT DETECTED COVID-19 (ENDY) COVID-19 Clin Com [place] DNA Probe Hepatitis C Ab (EIA) N.gonorrhoeae DNA (PCR) NOT DETECTED Trichomonas DNA Probe 03/18/23 03/18/23 03/18/23 08:45 08:45 09:58 WBC RBC Hgb Hct MCV MCH MCHC RDW Plt Count MPV Immature Gran % (Auto) Neut % (Auto) Lymph % (Auto) [place] % (Auto) Eos % (Auto) Baso % (Auto) Lymph # (Auto) [place] # (Auto) Eos # (Auto) Baso # (Auto) Abs Immat Gran (auto) Absolute Neuts (auto) Absolute Nucleated RBC Nucleated RBC % (auto) Sodium Potassium Chloride Carbon Dioxide Anion Gap BUN Creatinine Estim Creat Clear Calc Estimated GFR Random Glucose Fasting Glucose Estimat Average Glucose Hemoglobin A1c % Calcium Total Bilirubin AST ALT Alkaline Phosphatase Total Protein Albumin Triglycerides Cholesterol LDL Cholesterol, Calc HDL Cholesterol Vitamin B12 Folate TSH Free T4 Urine Color Urine Appearance Urine pH Ur Specific [place] Urine Protein Urine Glucose (UA) Urine Ketones Urine Blood Urine Nitrite Ur Leukocyte Esterase Urine RBC Urine WBC Ur Squamous Epith Cells Urine Bacteria Hyaline Casts Urine Opiates Screen Urine Fentanyl Screen Ur Barbiturates Screen Ur Phencyclidine Scrn Ur Amphetamines Screen U Benzodiazepines Scrn [place] Urine Cocaine Screen U Marijuana (THC) Screen Ethyl Alcohol T.pallidum Ab (EIA) Nonreactive [place] species DNA Negative Chlam trachomat DNA PCR NOT DETECTED COVID-19 (ENDY) COVID-19 Clin Com [place] DNA Probe Positive A Hepatitis C Ab (EIA) N.gonorrhoeae DNA (PCR) NOT DETECTED Trichomonas DNA Probe Positive A 03/18/23 09:58 WBC RBC Hgb Hct MCV MCH MCHC RDW Plt Count MPV Immature Gran % (Auto) Neut % (Auto) Lymph % (Auto) [place] % (Auto) Eos % (Auto) Baso % (Auto) Lymph # (Auto) [place] # (Auto) Eos # (Auto) Baso # (Auto) Abs Immat Gran (auto) Absolute Neuts (auto) Absolute Nucleated RBC Nucleated RBC % (auto) Sodium Potassium Chloride Carbon Dioxide Anion Gap BUN Creatinine Estim Creat Clear Calc Estimated GFR Random Glucose Fasting Glucose Estimat Average Glucose Hemoglobin A1c % Calcium Total Bilirubin AST ALT Alkaline Phosphatase Total Protein Albumin Triglycerides Cholesterol LDL Cholesterol, Calc HDL Cholesterol Vitamin B12 Folate TSH Free T4 Urine Color Urine Appearance Urine pH Ur Specific [place] Urine Protein Urine Glucose (UA) Urine Ketones Urine Blood Urine Nitrite Ur Leukocyte Esterase Urine RBC Urine WBC Ur Squamous Epith Cells Urine Bacteria Hyaline Casts Urine Opiates Screen Urine Fentanyl Screen Ur Barbiturates Screen Ur Phencyclidine Scrn Ur Amphetamines Screen U Benzodiazepines Scrn [place] Urine Cocaine Screen U Marijuana (THC) Screen Ethyl Alcohol T.pallidum Ab (EIA) [place]ie species DNA Chlam trachomat DNA PCR COVID-19 (ENDY) COVID-19 Clin Com [place]rella DNA Probe Hepatitis C Ab (EIA) Nonreactive N.gonorrhoeae DNA (PCR) Trichomonas DNA Probe 03/15/23 18:27 Urine clean catch - Urine barker top Urine Culture - Final DS: Summary Hospital Course Hospital Course: HPI: Bhavana is a 53-year-old female with a history of bipolar disorder with psychotic features, PTSD, crack cocaine abuse, numerous psychiatric admissions, with PMH for? comorbid COPD/asthma, FABIOLA, recent diagnosis of parotid gland neoplasm s/p surgical excision, who presents to ED for SI. Patient reports there are a lot of anniversaries coming up that has caused her to feel depressed and subsequently suicidal. Pt reports she feels she on too many medications and would like some to be decreased, feeling they are causing her to get easily aggravated. Pt reports she's remained sober. Past Psychiatric History: -History of non-adherence with OP psych treatment? -History of aggressive behaviors, SIB -Significant substance abuse history -OP provider: BERNABE Altamirano -Multiple inpatient psych admissions. -Has [facility] services -Most recent discharge meds: vistaril, sertraline, trazodone, lithium, thorazine, Seroquel, olanzapine, benztropine, prazosin, gabapentin HOSPITAL COURSE On the unit, pt was admitted on CV and placed on 15 minutes check for safety. It appears pt has been more consistant with care, attenting and following up with outpatient providers for medical and psychiatric care. She has also decreased cocaine use. Pt also was able to obtain an apartment and is no longer homeless. She presents to [facility] reporting increase AH. She reports she feels she is on a lot of medications. She would like to simply her medication regimen, which seems reasonable. She did not present with any signs of psychosis. She presented much less explosive and impulsive than what she used to present. We discussed risks, benefits and alternative treatment options. Pt agreed to lower and taper off wellbutrin. She was continued on lithium and olanzapine. She agreed to d/c trileptal. Pt was sleeping and eating well. She was visible on the unit and social with select peers. Some mild irritability towards peers but able to be redirected. She denied SI/HI. No episodes of disruptive behaviors nor need for restraints. Time spent discussing smoking cessation with patient: 3 to 10 minutes Status at Discharge Cognitive/behavioral status at discharge: Pt with brighter, non labile affect. No SI/HI. No VH/AH. Pt sleeping and eating well. No aggression towards self or others. Functional status at discharge: uses cane/walker Overall status at discharge: patient is progressing back to baseline Time Spent with Patient Time attestation: Total time managing care of this patient today _30___ minutes. Time spent: Greater than 30 minutes Discharge Plan Discharge Anticipated Discharge Date/Time: 03/22/23 09:43 Patient Disposition: Home, Self-Care Discharge Diagnosis: Bipolar Disorder Cocaine Use Disorder Referrals: Juanita Todd (Therapy) [Other] - 03/31/23 11:00 am (TELEHEALTH APPOINTMENT) Radha Altamirano (Psychiatry) [Other] - 04/01/23 9:00 am (TELEHEALTH APPOINTMENT) [facility] [Other] - 1 Week (Fax - [phone] Staff will reach out to set up nursing visit.) [facility] [Other] - 04/07/23 2:30 pm (Follow up appointment w/DR. Kat dyer h [facility]) Discharge Medications: New ropinirole 1 mg Tablet 1 mg PO BEDTIME Qty: 30 0RF nicotine 14 mg/24 hr Patch 24 Hour 14 mg transdermal DAILY Qty: 30 0RF ipratropium-albuterol 0.5 mg-3 mg(2.5 mg base)/3 mL Solution For Nebulization 3 ml inhalation RQ6H Qty: 90 0RF valacyclovir 1 gram Tablet 1,000 mg PO BID Qty: 30 0RF olanzapine 10 mg Tablet 10 mg PO BEDTIME Qty: 30 0RF metronidazole 500 mg Tablet 500 mg PO Q12H Qty: 14 0RF clonidine HCl 0.2 mg Tablet 0.2 mg PO BEDTIME Qty: 30 0RF Protocol: Hold for SBP< HOLD for SBP < : 90 gabapentin 300 mg Capsule 300 mg PO BEDTIME Qty: 30 0RF albuterol sulfate [Ventolin HFA] 90 mcg/actuation Hfa Aerosol Inhaler 2 puff inhalation Q4H PRN (Reason: shortness of breath or wheezing) Qty: 6.7 0RF Spiriva with HandiHaler 18 mcg Capsule, W/Inhalation Device 18 mcg inhalation RDAILY Qty: 20 0RF ferrous sulfate 324 mg (65 mg iron) Tablet,Delayed Release (Dr/Ec) 324 mg PO DAILY Qty: 30 0RF lithium carbonate 450 mg tablet extended release 1,350 mg PO BEDTIME Qty: 90 0RF cyanocobalamin (vitamin B-12) [Vitamin B-12] 100 mcg Tablet 100 mcg PO DAILY Qty: 30 0RF omeprazole 20 mg Capsule,Delayed Release(Dr/Ec) 20 mg PO DAILY@0630 Qty: 30 0RF cholecalciferol (vitamin D3) 25 mcg (1,000 unit) Tablet 25 mcg PO DAILY Qty: 30 0RF Discontinued albuterol sulfate 90 mcg/actuation HFA aerosol inhaler 2 puff inhalation Q4-6H PRN (Reason: shortness of breath or wheezing) 30 Days Qty: 1 0RF ferrous sulfate 324 mg (65 mg iron) tablet,delayed release (DR/EC) 324 mg PO DAILY 30 Days Qty: 30 0RF oxcarbazepine 150 mg tablet 1 tab PO BID valacyclovir 1 gram tablet 1 tab PO BID benztropine 1 mg tablet 1 tab PO BID omeprazole 20 mg capsule,delayed release(DR/EC) 1 cap PO DAILY@0630 sertraline 50 mg tablet 50 mg PO DAILY cholecalciferol (vitamin D3) 25 mcg (1,000 unit) tablet 1 tab PO DAILY lithium carbonate 600 mg capsule 1 cap PO BID cyanocobalamin (vitamin B-12) 100 mcg tablet 1 tab PO DAILY olanzapine 10 mg tablet 1 tab PO BEDTIME Spiriva with HandiHaler 18 mcg capsule, w/inhalation device 1 cap inhalation DAILY clonidine HCl 0.1 mg Tablet 0.2 mg PO BEDTIME bupropion HCl 150 mg Tablet Extended Release 24 Hr 150 mg PO QAM ropinirole 1 mg Tablet 1 mg PO BEDTIME Rx Instructions: administer 1-3 hours before bedtime acetaminophen 500 mg Tablet 500 mg PO Q8H PRN (Reason: Pain) ipratropium-albuterol 18-103 mcg/actuation Aerosol 1 spray INHALATION QID PRN (Reason: Wheezing) gabapentin 600 mg tablet 600 mg PO BEDTIME nicotine 14 mg/24 hr Patch 24 Hour 14 mg transdermal DAILY Qty: 30 0RF Discharge Orders: Discharge Order (Routine); Ordered 03/22/23 Ordered By: Ligia Cortez Diet: Regular diet Activity on Discharge: As tolerated Stand Alone Forms: Patient Portal Discharge page, Community Support Care Plan Goals: 1. Maintain mood 2. No SI/HI 3. no aggression towards self or others Health Concerns: Follow up with PCP Plan of Treatment: 1. take medications as prescribed 2. Go to nearest ED or call 911 in event of emergency Assessment: Pt with bright, non labile affect. No SI/HI. No VH/AH. Sleeping and eating well. No aggression towards self or others. Discharge Date/Time: 03/22/23 10:45
--- NOTE | 2023-03-22 10:20 | PC.NURSE ---
Bhavana is alert, fully oriented, pleasant and cooperative with discharge process. She is discharged to the care of her outpt providers including [facility] and [facility]. She denies ideation, plan or intent to harm self or others. She denies current physical complaint.
== END 2023-03-22 10:45 | disposition home or self-care (01) | DRG 753 ==
LOC: HO.ED 18:05 → HO.PADLT16 03-16 15:58
PROVIDERS: Obstetrics & Gynecology; Psychiatry & Neurology Psychiatry; Admitting Provider Psychiatry & Neurology Psychiatry; Emergency Provider Emergency Medicine; Visit Provider Social Worker
DX: F31.9 Bipolar disorder, unspecified (principal); R45.851 Suicidal ideations; F44.5 Conversion disorder with seizures or convulsions; F17.210 Nicotine dependence, cigarettes, uncomplicated; F14.10 Cocaine abuse, uncomplicated; B37.31 Acute candidiasis of vulva and vagina; J44.9 Chronic obstructive pulmonary disease, unspecified; G47.33 Obstructive sleep apnea (adult) (pediatric); N76.0 Acute vaginitis; F43.10 Post-traumatic stress disorder, unspecified; F60.3 Borderline personality disorder; Z71.6 Tobacco abuse counseling; Z20.822 Contact with and (suspected) exposure to COVID-19; Z91.040 Latex allergy status; Z88.0 Allergy status to penicillin; Z88.2 Allergy status to sulfonamides; Z79.899 Other long term (current) drug therapy
CPT/HCPCS: 0353U; 36415; 80053; 80061; 80178; 80307; 81001; 82607; 82746; 83036; 84439; 84443; 85025; 86780; 86803; 87086; 87480; 87510; 87635; 87660; 93005; 94640; 94660; 99285; S9485

== ENCOUNTER 2023-04-12 22:01 | Emergency (ER) | payer OTHER, MEDICAID, SELFPAY ==
[2023-04-12 22:13] VITALS: BP 151/76; PULSE 94; RESP 17; TEMP 36.8; O2SAT 93; BMI 39.1
--- NOTE | 2023-04-12 22:42 | ED_ITS ---
HPI - Psych General Chief Complaint: Psychiatric Symptoms Stated Complaint: SI Time Seen by Provider: 04/12/23 22:41 Source: patient Mode of arrival: ambulatory Limitations: no limitations History of Present Illness HPI Narrative: Patient History of bipolar disorder anxiety substance abuse cocaine used cocaine earlier today feeling suicidal for last few days will plan to jump from the bridge history of same in the past and been seen here multiple times Related Data Home Medications Medication Instructions Recorded Confirmed gabapentin 600 mg tablet 600 mg PO BEDTIME 04/12/23 04/12/23 Previous Rx's Medication Instructions Recorded albuterol sulfate 90 mcg/actuation 2 puff inhalation Q4H PRN 03/22/23 aerosol inhaler (Ventolin HFA) shortness of breath or wheezing #6.7 grams cholecalciferol (vitamin D3) 25 25 mcg PO DAILY #30 tabs 03/22/23 mcg (1,000 unit) tablet clonidine HCl 0.2 mg tablet 0.2 mg PO BEDTIME #30 tabs 03/22/23 cyanocobalamin (vitamin B-12) 100 100 mcg PO DAILY #30 tabs 03/22/23 mcg tablet (Vitamin B-12) ferrous sulfate 324 mg (65 mg 324 mg PO DAILY #30 tabs 03/22/23 iron) tablet,delayed release ipratropium 0.5 mg-albuterol 3 mg 3 ml inhalation RQ6H #90 mL 03/22/23 (2.5 mg base)/3 mL nebulization soln lithium carbonate 450 mg 1,350 mg PO BEDTIME #90 tabs 03/22/23 tablet,extended release metronidazole 500 mg tablet 500 mg PO Q12H #14 tabs 03/22/23 nicotine 14 mg/24 hr daily 14 mg transdermal DAILY #30 ea 03/22/23 transdermal patch olanzapine 10 mg tablet 10 mg PO BEDTIME #30 tabs 03/22/23 omeprazole 20 mg capsule,delayed 20 mg PO DAILY@0630 #30 caps 03/22/23 release ropinirole 1 mg tablet 1 mg PO BEDTIME #30 tabs 03/22/23 tiotropium bromide 18 mcg capsule 18 mcg inhalation RDAILY #20 03/22/23 with inhalation device (Spiriva inhalations with HandiHaler) valacyclovir 1 gram tablet 1,000 mg PO BID #30 tabs 03/22/23 Allergies Allergy/AdvReac Type Severity Reaction Status Date / Time ampicillin Allergy Rash Verified 12/26/22 10:32 Penicillins Allergy Anaphylaxis Verified 03/15/23 17:49 latex AdvReac Rash Verified 03/15/23 17:49 Latex, Natural Rubber AdvReac Rash Verified 03/15/23 17:49 seafood AdvReac Stomach Verified 12/26/22 10:32 Upset Sulfa (Sulfonamide AdvReac Hives Verified 03/15/23 17:49 Antibiotics) Review of Systems Review of Systems: Yes all other systems are reviewed and are negative [facility] Past Medical History Medical History Asthma exacerbation in COPD Asthma-COPD overlap syndrome Bipolar disorder Bipolar I disorder Borderline personality disorder Chronic lung disease COPD (chronic obstructive pulmonary disease) COPD (chronic obstructive pulmonary disease) Depression Drug abuse Herpes Intermittent explosive disorder 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 FABIOLA (obstructive sleep apnea) Post traumatic stress disorder (PTSD) Tobacco use Tobacco use disorder Surgical History History of ankle surgery History of appendectomy History of back surgery Hx of cholecystectomy Family History Family History Mother COPD (chronic obstructive pulmonary disease) Social History Social History Household Members: Unknown / Unable to assess Household Members Other:: Snf in [place] Housing: Apartment Housing Other:: Sleeps on the couch at [facility] house Do you presently have visiting nurse or other home services: Yes (twice a day) Unable to assess alcohol history related to: Unknown Alcohol intake: never Patient Tobacco Use Status: Current everyday Tobacco user Tobacco use type: Cigarette Cigarette Packs Per Day: 3 Cigarettes Per Day: 10 Years Smoked: 35 e-Cigarette/Vaping Use: Former Use Second Hand Smoke Exposure: No Substance Use Type: Crack/Cocaine Advance Directives: Yes Advance Directives on File: Yes Advance Directives Date on File: 06/17/22 service: No Current occupational status: unemployed and disabled Sexual orientation: Straight/Heterosexual Physical Exam Vital Signs: Vital Signs: Last Vital Signs Temp 98.2 F 04/13/23 06:03 Pulse 84 04/13/23 06:03 Resp 16 04/13/23 06:03 BP 124/66 04/13/23 06:03 Pulse Ox 90 L 04/13/23 06:03 O2 Del Method Room Air 04/13/23 06:03 BMI result Body Mass Index 39.1 Appearance: Alert. Oriented X3. No acute distress. Eyes: PERRLA, No Nystagmus ENT: Pharynx normal. Oral Mucosa moist Neck: Normal inspection. Neck supple. CVS: Normal heart rate and rhythm. Pulses normal. Respiratory: No respiratory distress. Equal air entry bilateral, no wheezing/rales/rhonchi Abdomen: Soft and nontender. Bowel sounds are present, no mass palpable, no CVA tenderness Skin: Skin warm and dry. Normal skin color. Normal skin turgor. Extremities: No lower extremity edema. No calf tenderness psych: Feel depressed suicidal with no current plan at this time no hallucination or delusion Neuro: Oriented X 3. No motor deficit. No sensory deficit.No cerebellar signs , cranial nerves II-XII intact Medical Decision Making Lab Data MDM Lab Attestation statement: I reviewed the patient's lab results. 04/12/23 22:48 04/12/23 22:48 Labs: Lab Results 04/12/23 04/12/23 04/12/23 Range/Units 22:48 22:48 22:48 WBC 12.1 H (4.8-10.8) X10*3/uL RBC 4.46 (4.20-5.50) X10*6/uL Hgb 14.0 (12.0-16.0) g/dl Hct 44.8 (37.0-47.0) % MCV 100.4 H (80.0-98.0) fL MCH 31.4 (27.0-33.0) pg MCHC 31.3 (31.0-35.0) g/dl RDW 12.8 (11.0-16.0) % Plt Count 277 (160-400) X10*3/uL MPV 9.8 (9.4-12.3) fL Immature Gran % (Auto) 0.2 (0.0-0.4) % Neut % (Auto) 73.7 H (45-73) % Lymph % (Auto) 18.3 L (20-40) % [place] % (Auto) 6.4 (2-11) % Eos % (Auto) 0.6 (0-4) % Baso % (Auto) 0.8 (0-2) % Lymph # (Auto) 2.2 (1.2-4.9) X10*3/uL [place] # (Auto) 0.8 (0.1-1.2) X10*3/uL Eos # (Auto) 0.1 (0.0-0.4) X10*3/uL Baso # (Auto) 0.1 (0.0-0.2) X10*3/uL Abs Immat Gran (auto) 0.03 (0.00-0.03) X10*3/uL Absolute Neuts (auto) 8.9 H (2.0-8.3) x10*3/uL Absolute Nucleated RBC 0.000 (0.0-0.012) X10*3/uL Nucleated RBC % (auto) 0.0 (0.0-0.2) /100WBC Sodium 136 (135-145) mmol/L Potassium 3.8 (3.3-5.1) mmol/L Chloride 102 (96-108) mmol/L Carbon Dioxide 26 (22-29) mmol/L Anion Gap 12 (12-20) BUN 11 (9-16) mg/dL Creatinine 0.76 (0.5-1.4) mg/dL Estim Creat Clear Calc 105.0 Estimated GFR > 60 Random Glucose 113 (60-115) mg/dL Calcium 10.0 (8.4-10.2) mg/dL Total Bilirubin 0.5 (0.0-1.0) mg/dL AST 13 (5-31) U/L ALT 14 (0-31) U/L Alkaline Phosphatase 74 (39-117) U/L Total Protein 7.4 (6.5-8.0) g/dL Albumin 4.5 (3.5-5.0) g/dL [place] (0.60-1.20) mmol/L Ethyl Alcohol < 10 mg/dL 04/12/23 Range/Units 22:48 WBC (4.8-10.8) X10*3/uL RBC (4.20-5.50) X10*6/uL Hgb (12.0-16.0) g/dl Hct (37.0-47.0) % MCV (80.0-98.0) fL MCH (27.0-33.0) pg MCHC (31.0-35.0) g/dl RDW (11.0-16.0) % Plt Count (160-400) X10*3/uL MPV (9.4-12.3) fL Immature Gran % (Auto) (0.0-0.4) % Neut % (Auto) (45-73) % Lymph % (Auto) (20-40) % [place] % (Auto) (2-11) % Eos % (Auto) (0-4) % Baso % (Auto) (0-2) % Lymph # (Auto) (1.2-4.9) X10*3/uL [place] # (Auto) (0.1-1.2) X10*3/uL Eos # (Auto) (0.0-0.4) X10*3/uL Baso # (Auto) (0.0-0.2) X10*3/uL Abs Immat Gran (auto) (0.00-0.03) X10*3/uL Absolute Neuts (auto) (2.0-8.3) x10*3/uL Absolute Nucleated RBC (0.0-0.012) X10*3/uL Nucleated RBC % (auto) (0.0-0.2) /100WBC Sodium (135-145) mmol/L Potassium (3.3-5.1) mmol/L Chloride (96-108) mmol/L Carbon Dioxide (22-29) mmol/L Anion Gap (12-20) BUN (9-16) mg/dL Creatinine (0.5-1.4) mg/dL Estim Creat Clear Calc Estimated GFR Random Glucose (60-115) mg/dL Calcium (8.4-10.2) mg/dL Total Bilirubin (0.0-1.0) mg/dL AST (5-31) U/L ALT (0-31) U/L Alkaline Phosphatase (39-117) U/L Total Protein (6.5-8.0) g/dL Albumin (3.5-5.0) g/dL [place] 1.14 (0.60-1.20) mmol/L Ethyl Alcohol mg/dL Discharge Plan Discharge Clinical Impression: Bipolar I disorder, Suicidal ideation, Cocaine abuse Patient Disposition: Still a Patient Prescriptions: No Action ropinirole 1 mg Tablet 1 mg PO BEDTIME Qty: 30 0RF nicotine 14 mg/24 hr Patch 24 Hour 14 mg transdermal DAILY Qty: 30 0RF ipratropium-albuterol 0.5 mg-3 mg(2.5 mg base)/3 mL Solution For Nebulization 3 ml inhalation RQ6H Qty: 90 0RF valacyclovir 1 gram Tablet 1,000 mg PO BID Qty: 30 0RF olanzapine 10 mg Tablet 10 mg PO BEDTIME Qty: 30 0RF metronidazole 500 mg Tablet 500 mg PO Q12H Qty: 14 0RF clonidine HCl 0.2 mg Tablet 0.2 mg PO BEDTIME Qty: 30 0RF Protocol: Hold for SBP< HOLD for SBP < : 90 albuterol sulfate [Ventolin HFA] 90 mcg/actuation Hfa Aerosol Inhaler 2 puff inhalation Q4H PRN (Reason: shortness of breath or wheezing) Qty: 6.7 0RF Spiriva with HandiHaler 18 mcg Capsule, W/Inhalation Device 18 mcg inhalation RDAILY Qty: 20 0RF ferrous sulfate 324 mg (65 mg iron) Tablet,Delayed Release (Dr/Ec) 324 mg PO DAILY Qty: 30 0RF lithium carbonate 450 mg tablet extended release 1,350 mg PO BEDTIME Qty: 90 0RF cyanocobalamin (vitamin B-12) [Vitamin B-12] 100 mcg Tablet 100 mcg PO DAILY Qty: 30 0RF omeprazole 20 mg Capsule,Delayed Release(Dr/Ec) 20 mg PO DAILY@0630 Qty: 30 0RF cholecalciferol (vitamin D3) 25 mcg (1,000 unit) Tablet 25 mcg PO DAILY Qty: 30 0RF gabapentin 600 mg tablet 600 mg PO BEDTIME Interventions: [place]-Suicide Risk Severity Scale Last Done: 04/13/23 06:22
[2023-04-12 22:56] LABS: Basophils Absolute Auto 0.1 X10*3/uL (0.0-0.2); Basophils Percent Auto 0.8 % (0-2); Eosinophils Absolute Auto 0.1 X10*3/uL (0.0-0.4); Eosinophils Percent Auto 0.6 % (0-4); Hematocrit 44.8 % (37.0-47.0); Imm Gran Abs Auto 0.03 X10*3/uL (0.00-0.03); Imm Gran Pct Auto 0.2 % (0.0-0.4); Lymphocytes Absolute Auto 2.2 X10*3/uL (1.2-4.9); Lymphocytes Percent Auto 18.3 % (20-40); MANUAL DIFF FLAG NO; Mean Corpuscular HGB Conc 31.3 g/dl (31.0-35.0); Mean Corpuscular Hemoglobin 31.4 pg (27.0-33.0); Mean Corpuscular Volume 100.4 fL (80.0-98.0); Mean Platelet Volume 9.8 fL (9.4-12.3); Monocytes Absolute Auto 0.8 X10*3/uL (0.1-1.2); Monocytes Percent Auto 6.4 % (2-11); Neutrophils Absolute Auto 8.9 x10*3/uL (2.0-8.3); Neutrophils Percent Auto 73.7 % (45-73); Platelet Count 277 X10*3/uL (160-400); Red Blood Count 4.46 X10*6/uL (4.20-5.50); Red Cell Distribution Width 12.8 % (11.0-16.0); White Blood Count 12.1 X10*3/uL (4.8-10.8)
[2023-04-12 23:07] LABS: Lithium 1.14 mmol/L (0.60-1.20)
[2023-04-12 23:11] LABS: Ethanol < 10 mg/dL
[2023-04-12 23:13] LABS: Alanine Aminotransferase 14 U/L (0-31); Albumin Level 4.5 g/dL (3.5-5.0); Alkaline Phosphatase 74 U/L (39-117); Anion Gap 12 (12-20); Aspartate Amino Transferase 13 U/L (5-31); Bilirubin Total 0.5 mg/dL (0.0-1.0); Blood Urea Nitrogen 11 mg/dL (9-16); Carbon Dioxide 26 mmol/L (22-29); Chloride 102 mmol/L (96-108); Estimated Glomerular Filt Rate > 60; Glucose Random 113 mg/dL (60-115); Potassium 3.8 mmol/L (3.3-5.1); Sodium 136 mmol/L (135-145); Total Protein 7.4 g/dL (6.5-8.0)
[2023-04-13 06:03] VITALS: BP 124/66; PULSE 84; RESP 16; TEMP 36.8; O2SAT 90
--- NOTE | 2023-04-13 06:30 | PC.NURSE ---
Patient slept through the night, no distress observed/reported, gait unsteady with walker needs supports with ambulation, behavior non concerning, med rec completed/pharmacy notified/pending pharmacy review, VSS, urine sample pending for collection, will continue to monitor.
--- NOTE | 2023-04-13 07:02 | PC.NURSE ---
Resumed care of patient this morning, she is currently resting, all safety measures in place. Awaiting pharmacy to review med rec.
--- NOTE | 2023-04-13 07:59 | PHA.MEDREC ---
Pharmacy Consult ? Medication Reconciliation Pharmacy has completed the medication reconciliation. Reviewed med rec done by nursing
[2023-04-13 08:33] VITALS: BP 131/61; PULSE 78; RESP 16; TEMP 36.8; O2SAT 93
[2023-04-13 10:07] LABS: Appearance Urine Cloudy; Color Urine Yellow; Glucose Urine UA Negative (Negative); Leukocyte Esterase Urine Trace (Negative); Nitrite Urine Negative (Negative); Specific Gravity - Urine 1.015 (1.005-1.025); UMIC TRIGGER UA YES; Urine Blood Negative (Negative); Urine Ketones Negative (Negative); Urine Protein Negative (Neg-Trace)
[2023-04-13 10:10] LABS: Amphetamine Screen Urine Not Detected (Not Detect); Barbiturates, Urine Not Detected (Not Detect); Benzodiazepines Screen Urine Not Detected (Not Detect); Cannabinoid Screen Urine Not Detected (Not Detect); Cocaine Screen Urine POSITIVE (Not Detect); Fentanyl, urine Not Detected (Not Detect); Opiate Screen Urine Not Detected (Not Detect); Phencyclidine Screen Urine Not Detected (Not Detect)
[2023-04-13 10:12] LABS: Bacteria Urine 3+ (None Seen); Hyaline Casts Urine 0-2 /LPF (0-2); RBC Urine 0-2 /HPF (0-2)
[2023-04-13] MEDS: Acetaminophen 325 MG TABLET 650 MG PO (13:06)
== END 2023-04-13 13:35 | disposition home or self-care (01) ==
PROVIDERS: Emergency Provider Internal Medicine
DX: F31.9 Bipolar disorder, unspecified (principal); R45.851 Suicidal ideations; F14.10 Cocaine abuse, uncomplicated; F17.210 Nicotine dependence, cigarettes, uncomplicated; Z71.6 Tobacco abuse counseling; Z79.899 Other long term (current) drug therapy
CPT/HCPCS: 36415; 80053; 80178; 80307; 81001; 85025; 99284; S9485

== ENCOUNTER 2023-05-11 20:00 | Emergency (ER) | payer OTHER, MEDICAID, SELFPAY ==
--- NOTE | ~2023-05-11 | XR_ITS ---
EXAMINATION: XR CHEST CLINICAL INFORMATION: Shortness of breath COMPARISON: 03/07/23 TECHNIQUE: Frontal view of the chest was obtained. FINDINGS: Lordotic projection. Calcification of the aortic arch. The cardiac size is within normal limits. The central vessels are somewhat prominent but distinct. There is no alveolar edema. There is a suggestion of a patchy density at the right base medially. Overlying soft tissues limit assessment. There is no consolidation in the upper lung zones. There is no pleural fluid or pneumothorax. XR/XR chest 1V IMPRESSION: There is a suggestion of a mild opacity in the posteromedial right lower lung. Similar appearance on 03/07/23 No new focal abnormality
--- NOTE | 2023-05-11 20:05 | ED_ITS ---
HPI - General Adult General Chief complaint: Psychiatric Symptoms Stated complaint: SI Source: patient Mode of arrival: ambulatory Limitations: no limitations History of Present Illness HPI narrative: 52 female history of asthma, COPD, bipolar disorder, borderline personality disorder, , depression, drug use, herpes, mass of the parotid gland, previous suicide attempts, pseudoseizures presenting to the emergency department with complaints of suicidal ideation, depression worsening over the past few days worsening. Reports she is suicidal and wants to slit her wrist with steak knife. She reports she feels someone rubbing her shoulder and head. Denies visual and auditory hallucinations. Reports crack cocaine use earlier. No HI. No medical complaints. EMS noted patient was 88-89% on RA placed on 2 L nasal canula. But patient has COPD this is normal for her. Denies CP,SOB,n/v, abd pain, headache, vision changes, fevers, chills. Related Data Home Medications Medication Instructions Recorded Confirmed gabapentin 600 mg tablet 600 mg PO BEDTIME 04/12/23 04/12/23 Previous Rx's Medication Instructions Recorded albuterol sulfate 90 mcg/actuation 2 puff inhalation Q4H PRN 03/22/23 aerosol inhaler (Ventolin HFA) shortness of breath or wheezing #6.7 grams cholecalciferol (vitamin D3) 25 25 mcg PO DAILY #30 tabs 03/22/23 mcg (1,000 unit) tablet clonidine HCl 0.2 mg tablet 0.2 mg PO BEDTIME #30 tabs 03/22/23 cyanocobalamin (vitamin B-12) 100 100 mcg PO DAILY #30 tabs 03/22/23 mcg tablet (Vitamin B-12) ferrous sulfate 324 mg (65 mg 324 mg PO DAILY #30 tabs 03/22/23 iron) tablet,delayed release ipratropium 0.5 mg-albuterol 3 mg 3 ml inhalation RQ6H #90 mL 03/22/23 (2.5 mg base)/3 mL nebulization soln lithium carbonate 450 mg 1,350 mg PO BEDTIME #90 tabs 03/22/23 tablet,extended release metronidazole 500 mg tablet 500 mg PO Q12H #14 tabs 03/22/23 nicotine 14 mg/24 hr daily 14 mg transdermal DAILY #30 ea 03/22/23 transdermal patch olanzapine 10 mg tablet 10 mg PO BEDTIME #30 tabs 03/22/23 omeprazole 20 mg capsule,delayed 20 mg PO DAILY@0630 #30 caps 03/22/23 release ropinirole 1 mg tablet 1 mg PO BEDTIME #30 tabs 03/22/23 tiotropium bromide 18 mcg capsule 18 mcg inhalation RDAILY #20 03/22/23 with inhalation device (Spiriva inhalations with HandiHaler) valacyclovir 1 gram tablet 1,000 mg PO BID #30 tabs 03/22/23 Allergies Allergy/AdvReac Type Severity Reaction Status Date / Time ampicillin Allergy Rash Verified 12/26/22 10:32 Penicillins Allergy Anaphylaxis Verified 03/15/23 17:49 latex AdvReac Rash Verified 03/15/23 17:49 Latex, Natural Rubber AdvReac Rash Verified 03/15/23 17:49 seafood AdvReac Stomach Verified 12/26/22 10:32 Upset Sulfa (Sulfonamide AdvReac Hives Verified 03/15/23 17:49 Antibiotics) Review of Systems Review of Systems: Constitutional : No Weight loss, No Fever, No Chills, No Fatigue, No Malaise ENT/Mouth : No sore throat, No Rhinorrhea Eyes: No Eye Pain, No Swelling, No Redness Cardiovascular : No Chest Pain, No SOB, No Dyspnea on Exertion, No Orthopnea, No Edema, No Palpitations Respiratory : No Cough, No Sputum, No Wheezing Gastrointestinal : No Nausea, No Vomiting, No Diarrhea, No Constipation, No abdominal Pain, No Hematochezia, No Melena Genitourinary : No Dysuria, No Urinary Frequency, No Hematuria, Musculoskeletal : No joint pain, No Myalgias, No Joint Swelling Skin : No Skin Lesions, No rash Neuro : No Weakness, No Numbness, No Dizziness, No Headache Psych : + Anxiety/Panic, + Depression, +_ SI, No HI All other systems reviewed and are negative Yes all other systems are reviewed and are negative [facility] Past Medical History Attestation statement: The following information was validated with the patient. 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 FABIOLA (obstructive sleep apnea) Post traumatic stress disorder (PTSD) Tobacco use Tobacco use disorder Surgical History History of ankle surgery History of appendectomy History of back surgery Hx of cholecystectomy Family History Family History Mother COPD (chronic obstructive pulmonary disease) Social History Social History Household Members: Unknown / Unable to assess Household Members Other:: [facility] in [place] Housing: Apartment Housing Other:: Sleeps on the couch at [facility] house Do you presently have visiting nurse or other home services: Yes (twice a day) Unable to assess alcohol history related to: Unknown Alcohol intake: former Patient Tobacco Use Status: Current everyday Tobacco user Tobacco use type: Cigarette Cigarette Packs Per Day: 3 Cigarettes Per Day: 10 Years Smoked: 35 Smoked in Last 30 Days: Yes e-Cigarette/Vaping Use: Former Use Second Hand Smoke Exposure: No Use of substances other than those prescribed or required for medical reasons: Yes Substance Use Type: Crack/Cocaine Substance Use Frequency: Occasionally Last Used Substance: Hours (ago) Any prior treatment program specific to substance use: No Advance Directives Date on File: 06/17/22 Patient : No service: No Current occupational status: unemployed and disabled Sexual orientation: Straight/Heterosexual Physical Exam ED Vital Signs: Vital Signs - 24 hr 05/11/23 20:50 05/11/23 21:06 05/11/23 21:08 Temperature 98.0 F 98.0 F Pulse Rate 76 76 76 Respiratory Rate 18 18 18 Blood Pressure 107/58 L 107/58 L Pulse Oximetry 92 92 Oxygen Delivery Method Room Air Room Air BMI result Body Mass Index 35.8 Course Reevaluation(s) Reevaluation #1: CBC without any acute findings. Chemistry with no acute findings requiring intervention negative troponin. Patient's UA appears contaminated unlikely acute infection, he no UTI symptoms. Patient's salicylates, acetaminophen ethanol negative. Positive cocaine. Patient is COVID negative. Patient is saturating 92-93% on room air. Feels better after breathing treatment. At this time patient will be placed into observation to allow more time to be evaluated by the behavioral health team. At time observation was started patient common cooperative no acute distress will continue to monitor. Time: 21:27 Medications Administered Discontinued Medications Generic Name Dose Route Start Last Admin Trade Name Jacob PRN Reason Stop Dose Admin Albuterol Sulfate 5 mg 05/11/23 20:12 05/11/23 21:04 Albuterol Sulfate (0.083%) 2.5 Mg/3 Ml Vial.Neb INHALE 05/11/23 20:13 5 mg ONCE ONE Administration Medical Decision Making Medical Decision Making [facility] Narrative: 2006 53-year-old female presents with suicidal ideation with plan to cut herself, reports relapse of using crack cocaine Physical examination benign Likely anxiety, depression and suicidal ideation with possible PTSD. Patient's O2 saturation likely secondary to COPD, no complaints of chest pain, shortness of breath unlikely PE, ACS, pneumonia, pneumothorax. Plan at this time is medical clearance evaluation by the behavioral health team. Differential Diagnosis Differential Diagnoses: The differential diagnosis associated with the presentation includes Likely anxiety, depression and suicidal ideation with possible PTSD. Patient's O2 saturation likely secondary to COPD, no complaints of chest pain, shortness of breath unlikely PE, ACS, pneumonia, pneumothorax. Admission/Observation Consideration of admission/observation: Escalation of care including admission/observation considered Not indicated Lab Data [facility] Lab Attestation statement: I reviewed the patient's lab results. 05/11/23 20:40 05/11/23 20:40 Labs: Lab Results 05/11/23 05/11/23 05/11/23 Range/Units 20:29 20:29 20:40 WBC 8.9 (4.8-10.8) X10*3/uL RBC 4.44 (4.20-5.50) X10*6/uL Hgb 14.3 (12.0-16.0) g/dl Hct 44.0 (37.0-47.0) % MCV 99.1 H (80.0-98.0) fL MCH 32.2 (27.0-33.0) pg MCHC 32.5 (31.0-35.0) g/dl RDW 12.7 (11.0-16.0) % Plt Count 247 (160-400) X10*3/uL MPV 9.9 (9.4-12.3) fL Immature Gran % (Auto) 0.3 (0.0-0.4) % Neut % (Auto) 69.2 (45-73) % Lymph % (Auto) 23.7 (20-40) % [place] % (Auto) 4.8 (2-11) % Eos % (Auto) 1.2 (0-4) % Baso % (Auto) 0.8 (0-2) % Lymph # (Auto) 2.1 (1.2-4.9) X10*3/uL [place] # (Auto) 0.4 (0.1-1.2) X10*3/uL Eos # (Auto) 0.1 (0.0-0.4) X10*3/uL Baso # (Auto) 0.1 (0.0-0.2) X10*3/uL Abs Immat Gran (auto) 0.03 (0.00-0.03) X10*3/uL Absolute Neuts (auto) 6.2 (2.0-8.3) x10*3/uL Absolute Nucleated RBC 0.000 (0.0-0.012) X10*3/uL Nucleated RBC % (auto) 0.0 (0.0-0.2) /100WBC Sodium (135-145) mmol/L Potassium (3.3-5.1) mmol/L Chloride (96-108) mmol/L Carbon Dioxide (22-29) mmol/L Anion Gap (12-20) BUN (9-16) mg/dL Creatinine (0.5-1.4) mg/dL Estim Creat Clear Calc Estimated GFR Random Glucose (60-115) mg/dL Calcium (8.4-10.2) mg/dL Magnesium (1.6-2.6) mg/dL Total Bilirubin (0.0-1.0) mg/dL AST (5-31) U/L ALT (0-31) U/L Alkaline Phosphatase (39-117) U/L Troponin I High Sens (<3.5-17.0) ng/L Total Protein (6.5-8.0) g/dL Albumin (3.5-5.0) g/dL Urine Color Yellow Urine Appearance Clear Urine pH 6.5 (5.0-9.0) Ur Specific [place] 1.015 (1.005-1.025) Urine Protein Negative (Neg-Trace) mg/dL Urine Glucose (UA) Negative (Negative) mg/dL Urine Ketones Negative (Negative) mg/dL Urine Blood Negative (Negative) Urine Nitrite Negative (Negative) Ur Leukocyte Esterase Trace H (Negative) Urine RBC 0-2 (0-2) /HPF Urine WBC 6-10 H (0-5) /HPF Ur Squamous Epith Cells 11-20 (0-2) /HPF Urine Bacteria 2+ (None Seen) Hyaline Casts 0-2 (0-2) /LPF Salicylates (15-30) mg/dL Urine Opiates Screen Not Detected (Not Detect) Urine Fentanyl Screen Not Detected (Not Detect) Acetaminophen (<30) mcg/mL Ur Barbiturates Screen Not Detected (Not Detect) Ur Phencyclidine Scrn Not Detected (Not Detect) Ur Amphetamines Screen Not Detected (Not Detect) U Benzodiazepines Scrn Not Detected (Not Detect) Urine Cocaine Screen POSITIVE H (Not Detect) U Marijuana (THC) Screen Not Detected (Not Detect) Ethyl Alcohol mg/dL COVID-19 (ENDY) (Negative) COVID-19 Clin Com 05/11/23 05/11/23 05/11/23 Range/Units 20:40 20:40 20:40 WBC (4.8-10.8) X10*3/uL RBC (4.20-5.50) X10*6/uL Hgb (12.0-16.0) g/dl Hct (37.0-47.0) % MCV (80.0-98.0) fL MCH (27.0-33.0) pg MCHC (31.0-35.0) g/dl RDW (11.0-16.0) % Plt Count (160-400) X10*3/uL MPV (9.4-12.3) fL Immature Gran % (Auto) (0.0-0.4) % Neut % (Auto) (45-73) % Lymph % (Auto) (20-40) % [place] % (Auto) (2-11) % Eos % (Auto) (0-4) % Baso % (Auto) (0-2) % Lymph # (Auto) (1.2-4.9) X10*3/uL [place] # (Auto) (0.1-1.2) X10*3/uL Eos # (Auto) (0.0-0.4) X10*3/uL Baso # (Auto) (0.0-0.2) X10*3/uL Abs Immat Gran (auto) (0.00-0.03) X10*3/uL Absolute Neuts (auto) (2.0-8.3) x10*3/uL Absolute Nucleated RBC (0.0-0.012) X10*3/uL Nucleated RBC % (auto) (0.0-0.2) /100WBC Sodium 138 (135-145) mmol/L Potassium 4.0 (3.3-5.1) mmol/L Chloride 104 (96-108) mmol/L Carbon Dioxide 24 (22-29) mmol/L Anion Gap 14 (12-20) BUN 11 (9-16) mg/dL Creatinine 0.76 (0.5-1.4) mg/dL Estim Creat Clear Calc 100.0 Estimated GFR > 60 Random Glucose 117 H (60-115) mg/dL Calcium 10.7 H D (8.4-10.2) mg/dL Magnesium 2.0 (1.6-2.6) mg/dL Total Bilirubin 0.3 (0.0-1.0) mg/dL AST 13 (5-31) U/L ALT 15 (0-31) U/L Alkaline Phosphatase 73 (39-117) U/L Troponin I High Sens < 2.7 (<3.5-17.0) ng/L Total Protein 7.3 (6.5-8.0) g/dL Albumin 4.4 (3.5-5.0) g/dL Urine Color Urine Appearance Urine pH (5.0-9.0) Ur Specific [place] (1.005-1.025) Urine Protein (Neg-Trace) mg/dL Urine Glucose (UA) (Negative) mg/dL Urine Ketones (Negative) mg/dL Urine Blood (Negative) Urine Nitrite (Negative) Ur Leukocyte Esterase (Negative) Urine RBC (0-2) /HPF Urine WBC (0-5) /HPF Ur Squamous Epith Cells (0-2) /HPF Urine Bacteria (None Seen) Hyaline Casts (0-2) /LPF Salicylates (15-30) mg/dL Urine Opiates Screen (Not Detect) Urine Fentanyl Screen (Not Detect) Acetaminophen (<30) mcg/mL Ur Barbiturates Screen (Not Detect) Ur Phencyclidine Scrn (Not Detect) Ur Amphetamines Screen (Not Detect) U Benzodiazepines Scrn (Not Detect) Urine Cocaine Screen (Not Detect) U Marijuana (THC) Screen (Not Detect) Ethyl Alcohol mg/dL COVID-19 (ENDY) Negative (Negative) COVID-19 Clin Com See Note 05/11/23 05/11/23 Range/Units 20:40 20:40 WBC (4.8-10.8) X10*3/uL RBC (4.20-5.50) X10*6/uL Hgb (12.0-16.0) g/dl Hct (37.0-47.0) % MCV (80.0-98.0) fL MCH (27.0-33.0) pg MCHC (31.0-35.0) g/dl RDW (11.0-16.0) % Plt Count (160-400) X10*3/uL MPV (9.4-12.3) fL Immature Gran % (Auto) (0.0-0.4) % Neut % (Auto) (45-73) % Lymph % (Auto) (20-40) % [place] % (Auto) (2-11) % Eos % (Auto) (0-4) % Baso % (Auto) (0-2) % Lymph # (Auto) (1.2-4.9) X10*3/uL [place] # (Auto) (0.1-1.2) X10*3/uL Eos # (Auto) (0.0-0.4) X10*3/uL Baso # (Auto) (0.0-0.2) X10*3/uL Abs Immat Gran (auto) (0.00-0.03) X10*3/uL Absolute Neuts (auto) (2.0-8.3) x10*3/uL Absolute Nucleated RBC (0.0-0.012) X10*3/uL Nucleated RBC % (auto) (0.0-0.2) /100WBC Sodium (135-145) mmol/L Potassium (3.3-5.1) mmol/L Chloride (96-108) mmol/L Carbon Dioxide (22-29) mmol/L Anion Gap (12-20) BUN (9-16) mg/dL Creatinine (0.5-1.4) mg/dL Estim Creat Clear Calc Estimated GFR Random Glucose (60-115) mg/dL Calcium (8.4-10.2) mg/dL Magnesium (1.6-2.6) mg/dL Total Bilirubin (0.0-1.0) mg/dL AST (5-31) U/L ALT (0-31) U/L Alkaline Phosphatase (39-117) U/L Troponin I High Sens (<3.5-17.0) ng/L Total Protein (6.5-8.0) g/dL Albumin (3.5-5.0) g/dL Urine Color Urine Appearance Urine pH (5.0-9.0) Ur Specific [place] (1.005-1.025) Urine Protein (Neg-Trace) mg/dL Urine Glucose (UA) (Negative) mg/dL Urine Ketones (Negative) mg/dL Urine Blood (Negative) Urine Nitrite (Negative) Ur Leukocyte Esterase (Negative) Urine RBC (0-2) /HPF Urine WBC (0-5) /HPF Ur Squamous Epith Cells (0-2) /HPF Urine Bacteria (None Seen) Hyaline Casts (0-2) /LPF Salicylates < 5.0 L (15-30) mg/dL Urine Opiates Screen (Not Detect) Urine Fentanyl Screen (Not Detect) Acetaminophen < 17 (<30) mcg/mL Ur Barbiturates Screen (Not Detect) Ur Phencyclidine Scrn (Not Detect) Ur Amphetamines Screen (Not Detect) U Benzodiazepines Scrn (Not Detect) Urine Cocaine Screen (Not Detect) U Marijuana (THC) Screen (Not Detect) Ethyl Alcohol < 10 mg/dL COVID-19 (ENDY) (Negative) COVID-19 Clin Com Independent Interpretation I performed an independent interpretation of an: Plain X-Ray Radiology Impression Discussion of test interpretation with radiology: I have reviewed the radiologist's reading. Core Measures AMI core measures followed: Yes Measure exclusions: not indicated Critical Care Time Critical Care Time Critical Care Time: No Discharge Plan Discharge Clinical Impression: Feeling suicidal, Shortness of breath Patient Disposition: Still a Patient Prescriptions: No Action ropinirole 1 mg Tablet 1 mg PO BEDTIME Qty: 30 0RF nicotine 14 mg/24 hr Patch 24 Hour 14 mg transdermal DAILY Qty: 30 0RF ipratropium-albuterol 0.5 mg-3 mg(2.5 mg base)/3 mL Solution For Nebulization 3 ml inhalation RQ6H Qty: 90 0RF valacyclovir 1 gram Tablet 1,000 mg PO BID Qty: 30 0RF olanzapine 10 mg Tablet 10 mg PO BEDTIME Qty: 30 0RF metronidazole 500 mg Tablet 500 mg PO Q12H Qty: 14 0RF clonidine HCl 0.2 mg Tablet 0.2 mg PO BEDTIME Qty: 30 0RF Protocol: Hold for SBP< HOLD for SBP < : 90 albuterol sulfate [Ventolin HFA] 90 mcg/actuation Hfa Aerosol Inhaler 2 puff inhalation Q4H PRN (Reason: shortness of breath or wheezing) Qty: 6.7 0RF Spiriva with HandiHaler 18 mcg Capsule, W/Inhalation Device 18 mcg inhalation RDAILY Qty: 20 0RF ferrous sulfate 324 mg (65 mg iron) Tablet,Delayed Release (Dr/Ec) 324 mg PO DAILY Qty: 30 0RF lithium carbonate 450 mg tablet extended release 1,350 mg PO BEDTIME Qty: 90 0RF cyanocobalamin (vitamin B-12) [Vitamin B-12] 100 mcg Tablet 100 mcg PO DAILY Qty: 30 0RF omeprazole 20 mg Capsule,Delayed Release(Dr/Ec) 20 mg PO DAILY@0630 Qty: 30 0RF cholecalciferol (vitamin D3) 25 mcg (1,000 unit) Tablet 25 mcg PO DAILY Qty: 30 0RF gabapentin 600 mg tablet 600 mg PO BEDTIME Interventions: Oliver-Suicide Risk Severity Scale Last Done: 05/11/23 21:05
[2023-05-11 20:10] VITALS: BP 122/70; PULSE 87; O2SAT 94
--- NOTE | 2023-05-11 20:10 | ECG_ITS ---
Test Reason : SOB Blood Pressure : / mmHG Vent. Rate : 085 BPM Atrial Rate : 085 BPM P-R Int : 154 ms QRS Dur : 082 ms QT Int : 362 ms P-R-T Axes : 035 025 016 degrees QTc Int : 430 ms Normal sinus rhythm Nonspecific T wave abnormality Abnormal ECG When compared with ECG of 16-MAR-2023 08:26, No significant change was found Referred By: Kamla Marroquin Electronically Signed By:VAIBHAV KILLIAN MD
--- NOTE | 2023-05-11 20:12 | PC.NURSE ---
pt arrived with 4l nc with was 94% . on room air 88% when ems arrived. 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
[2023-05-11 20:39] LABS: Appearance Urine Clear; Color Urine Yellow; Glucose Urine UA Negative (Negative); Leukocyte Esterase Urine Trace (Negative); Nitrite Urine Negative (Negative); PH 6.5 (5.0-9.0); Specific Gravity - Urine 1.015 (1.005-1.025); UMIC TRIGGER UACC YES; Urine Blood Negative (Negative); Urine Ketones Negative (Negative); Urine Protein Negative (Neg-Trace)
[2023-05-11 20:44] LABS: Bacteria Urine 2+ (None Seen); Hyaline Casts Urine 0-2 /LPF (0-2); RBC Urine 0-2 /HPF (0-2); UACC Culture Trigger YES
[2023-05-11 20:46] LABS: MANUAL DIFF FLAG NO
[2023-05-11 20:49] LABS: Basophils Absolute Auto 0.1 X10*3/uL (0.0-0.2); Basophils Percent Auto 0.8 % (0-2); Eosinophils Absolute Auto 0.1 X10*3/uL (0.0-0.4); Eosinophils Percent Auto 1.2 % (0-4); Hemoglobin 14.3 g/dl (12.0-16.0); Imm Gran Abs Auto 0.03 X10*3/uL (0.00-0.03); Imm Gran Pct Auto 0.3 % (0.0-0.4); Lymphocytes Absolute Auto 2.1 X10*3/uL (1.2-4.9); Lymphocytes Percent Auto 23.7 % (20-40); Mean Corpuscular HGB Conc 32.5 g/dl (31.0-35.0); Mean Corpuscular Hemoglobin 32.2 pg (27.0-33.0); Mean Corpuscular Volume 99.1 fL (80.0-98.0); Mean Platelet Volume 9.9 fL (9.4-12.3); Monocytes Absolute Auto 0.4 X10*3/uL (0.1-1.2); Monocytes Percent Auto 4.8 % (2-11); Neutrophils Absolute Auto 6.2 x10*3/uL (2.0-8.3); Neutrophils Percent Auto 69.2 % (45-73); Platelet Count 247 X10*3/uL (160-400); Red Blood Count 4.44 X10*6/uL (4.20-5.50); Red Cell Distribution Width 12.7 % (11.0-16.0); White Blood Count 8.9 X10*3/uL (4.8-10.8)
[2023-05-11 20:50] VITALS: BP 107/58; PULSE 76; RESP 18; TEMP 36.7; O2SAT 92; BMI 35.8
[2023-05-11 20:50] LABS: Amphetamine Screen Urine Not Detected (Not Detect); Barbiturates, Urine Not Detected (Not Detect); Benzodiazepines Screen Urine Not Detected (Not Detect); Cannabinoid Screen Urine Not Detected (Not Detect); Cocaine Screen Urine POSITIVE (Not Detect); Fentanyl, urine Not Detected (Not Detect); Opiate Screen Urine Not Detected (Not Detect); Phencyclidine Screen Urine Not Detected (Not Detect)
[2023-05-11] MEDS: Albuterol Sulfate (0.083%) 2.5 MG/3 ML VIAL.NEB 5 MG INHALE (21:04)
[2023-05-11 21:06] VITALS: PULSE 76; RESP 18; O2SAT 93
[2023-05-11 21:08] VITALS: BP 107/58; PULSE 76; RESP 18; TEMP 36.7; O2SAT 92
[2023-05-11 21:08] LABS: Alanine Aminotransferase 15 U/L (0-31); Albumin Level 4.4 g/dL (3.5-5.0); Alkaline Phosphatase 73 U/L (39-117); Anion Gap 14 (12-20); Aspartate Amino Transferase 13 U/L (5-31); Bilirubin Total 0.3 mg/dL (0.0-1.0); Blood Urea Nitrogen 11 mg/dL (9-16); Calcium 10.7 mg/dL (8.4-10.2); Carbon Dioxide 24 mmol/L (22-29); Chloride 104 mmol/L (96-108); Estimated Glomerular Filt Rate > 60; Glucose Random 117 mg/dL (60-115); Sodium 138 mmol/L (135-145); Total Protein 7.3 g/dL (6.5-8.0)
[2023-05-11 21:10] LABS: COVID-19 Test Negative (Negative); IDNOW Serial# 9DB6401D
[2023-05-11 21:15] LABS: Acetaminophen LAB < 17 mcg/mL (<30); Ethanol < 10 mg/dL; Salicylate < 5.0 mg/dL (15-30); Troponin-I High Sensitivity < 2.7 ng/L (<3.5-17.0)
[2023-05-11 21:53] VITALS: PULSE 97; O2SAT 91
[2023-05-11] MEDS: dexAMETHasone sod phosphate 10 MG/ML VIAL IVPUSH (22:03)
[2023-05-11 23:44] VITALS: BP 106/53; PULSE 75; RESP 18; O2SAT 95
[2023-05-12 02:23] VITALS: BP 112/67; PULSE 71; RESP 16; O2SAT 91
--- NOTE | 2023-05-12 02:53 | PC.NURSE ---
Resident states that she needs to use the bathroom. Removed patient from bipap with respiratory at bedside. Resident stood up from bed with assist of walker, bed soiled with urine and feces. Patient ambulated to restroom with steady gait with use of walker. Voided without difficulty. Patient was provided new ligature free gown and cleansing cloths. She was able to clean herself and get changed out of dirty gown and into fresh gown. Ambulated back to room where respiratory placed her back onto bipap.
[2023-05-12 04:03] VITALS: BP 115/72; PULSE 76; RESP 16; O2SAT 99
[2023-05-12 06:44] VITALS: BP 119/69; PULSE 64; RESP 16; TEMP 36.6; O2SAT 92
[2023-05-12 07:00] VITALS: BP 107/65; PULSE 68; RESP 18; O2SAT 88
--- NOTE | 2023-05-12 07:02 | PC.NURSE ---
Pt currently resting, no apparent distress noted. Call castillo with in reach.
[2023-05-12 07:05] VITALS: BP 118/72; PULSE 78; RESP 18; TEMP 37.1; O2SAT 96
--- NOTE | 2023-05-12 07:07 | PC.NURSE ---
Pt calm, pleasant on approach, request fluids, fluids given.
== END 2023-05-12 09:23 | disposition home or self-care (01) ==
PROVIDERS: Physician Assistant; Emergency Provider Emergency Medicine Emergency Medical Services
DX: R45.851 Suicidal ideations (principal); R06.02 Shortness of breath; Z20.822 Contact with and (suspected) exposure to COVID-19; F31.9 Bipolar disorder, unspecified; F43.10 Post-traumatic stress disorder, unspecified; F41.9 Anxiety disorder, unspecified; F60.3 Borderline personality disorder; F14.10 Cocaine abuse, uncomplicated; F17.210 Nicotine dependence, cigarettes, uncomplicated; Z79.899 Other long term (current) drug therapy
CPT/HCPCS: 36415; 71045; 80053; 80143; 80179; 80307; 81001; 83735; 84484; 85025; 87086; 87635; 93005; 94640; 99285; J1100; S9485

== ENCOUNTER → 2023-05-11 20:10 | Outpatient (BNV) | payer MEDICAID, SELFPAY | PROVIDERS: Emergency Provider Emergency Medicine Emergency Medical Services; Visit Provider Internal Medicine Cardiovascular Disease | DX: R94.31 Abnormal electrocardiogram [ECG] [EKG] (principal) | CPT/HCPCS: 93010 ==

== ENCOUNTER 2023-05-14 22:26 | Emergency (ER) | payer OTHER, MEDICAID, SELFPAY ==
[2023-05-14 22:41] VITALS: BP 133/80; PULSE 95; RESP 18; TEMP 36.1; O2SAT 91; BMI 38.3
--- NOTE | 2023-05-14 22:45 | ED.PSYCH ---
HPI - Psych General Stated Complaint: SI Time Seen by Provider: 05/14/23 22:34 Source: patient Mode of arrival: EMS Limitations: no limitations History of Present Illness HPI Narrative: Patient comes to the emergency room complaining of suicidal ideation. Patient states that her neighbors are bothering her and she does not want to deal with them. Patient states that she would consider overdosing with Tylenol or cutting her wrist. Related Data Home Medications Medication Instructions Recorded Confirmed gabapentin 600 mg tablet 600 mg PO BEDTIME 04/12/23 04/12/23 Previous Rx's Medication Instructions Recorded albuterol sulfate 90 mcg/actuation 2 puff inhalation Q4H PRN 03/22/23 aerosol inhaler (Ventolin HFA) shortness of breath or wheezing #6.7 grams cholecalciferol (vitamin D3) 25 25 mcg PO DAILY #30 tabs 03/22/23 mcg (1,000 unit) tablet clonidine HCl 0.2 mg tablet 0.2 mg PO BEDTIME #30 tabs 03/22/23 cyanocobalamin (vitamin B-12) 100 100 mcg PO DAILY #30 tabs 03/22/23 mcg tablet (Vitamin B-12) ferrous sulfate 324 mg (65 mg 324 mg PO DAILY #30 tabs 03/22/23 iron) tablet,delayed release ipratropium 0.5 mg-albuterol 3 mg 3 ml inhalation RQ6H #90 mL 03/22/23 (2.5 mg base)/3 mL nebulization soln lithium carbonate 450 mg 1,350 mg PO BEDTIME #90 tabs 03/22/23 tablet,extended release metronidazole 500 mg tablet 500 mg PO Q12H #14 tabs 03/22/23 nicotine 14 mg/24 hr daily 14 mg transdermal DAILY #30 ea 03/22/23 transdermal patch olanzapine 10 mg tablet 10 mg PO BEDTIME #30 tabs 03/22/23 omeprazole 20 mg capsule,delayed 20 mg PO DAILY@0630 #30 caps 03/22/23 release ropinirole 1 mg tablet 1 mg PO BEDTIME #30 tabs 03/22/23 tiotropium bromide 18 mcg capsule 18 mcg inhalation RDAILY #20 03/22/23 with inhalation device (Spiriva inhalations with HandiHaler) valacyclovir 1 gram tablet 1,000 mg PO BID #30 tabs 03/22/23 Allergies Allergy/AdvReac Type Severity Reaction Status Date / Time ampicillin Allergy Rash Verified 12/26/22 10:32 Penicillins Allergy Anaphylaxis Verified 03/15/23 17:49 latex AdvReac Rash Verified 03/15/23 17:49 Latex, Natural Rubber AdvReac Rash Verified 03/15/23 17:49 seafood AdvReac Stomach Verified 12/26/22 10:32 Upset Sulfa (Sulfonamide AdvReac Hives Verified 03/15/23 17:49 Antibiotics) Review of Systems Review of Systems: Constitutional : No Weight loss, No Fever, No Chills, No Night Sweats, No Fatigue, No Malaise ENT/Mouth : No Hearing loss, No Ear Pain, No Nasal Congestion, No Sinus Pain, No Hoarseness, No sore throat, No Rhinorrhea, No Swallowing Difficulty Eyes: No Eye Pain, No Swelling, No Redness, No Foreign Body, No Discharge, No Vision Changes Cardiovascular : No Chest Pain, No SOB, No Dyspnea on Exertion, No Orthopnea, No Edema, No Palpitations Respiratory : No Cough, No Sputum, No Wheezing, No Smoke Exposure, No Dyspnea Gastrointestinal : No Nausea, No Vomiting, No Diarrhea, No Constipation, No abdominal Pain, No Hematochezia, No Melena Genitourinary : no irregular bleeding, No Dysuria, No Urinary Frequency, No Hematuria, No Urinary Incontinence, No Urgency, No Flank Pain, No Urinary Flow Changes, No Hesitancy Musculoskeletal : No joint pain, No Myalgias, No Joint Swelling Skin : No Skin Lesions, No rash Neuro : No Weakness, No Numbness, No Paresthesias, No Loss of Consciousness, No Dizziness, No Headache Psych : No Anxiety/Panic, complaining of suicidal ideation, homicidal ideation Heme/Lymph: No Bruising, No Bleeding,No Lymphadenopathy Endocrine : No Polyuria, No Polydipsia, No Temperature Intolerance PMFSH Past Medical History Medical History Asthma exacerbation in COPD Asthma-COPD overlap syndrome Bipolar disorder Bipolar I disorder Borderline personality disorder Chronic lung disease COPD (chronic obstructive pulmonary disease) COPD (chronic obstructive pulmonary disease) Depression Drug abuse Herpes Intermittent explosive disorder 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 FABOILA (obstructive sleep apnea) Post traumatic stress disorder (PTSD) Tobacco use Tobacco use disorder Surgical History History of ankle surgery History of appendectomy History of back surgery Hx of cholecystectomy Family History Family History Mother COPD (chronic obstructive pulmonary disease) Social History Social History Household Members: Unknown / Unable to assess Household Members Other:: Assisted in [place] Housing: Apartment Housing Other:: Sleeps on the couch at [facility] house Do you presently have visiting nurse or other home services: Yes (twice a day) Unable to assess alcohol history related to: Unknown Alcohol intake: former Patient Tobacco Use Status: Current everyday Tobacco user Tobacco use type: Cigarette Cigarette Packs Per Day: 3 Cigarettes Per Day: 10 Years Smoked: 35 e-Cigarette/Vaping Use: Former Use Second Hand Smoke Exposure: No Substance Use Type: Crack/Cocaine Advance Directives Date on File: 06/17/22 service: No Current occupational status: unemployed and disabled Sexual orientation: Straight/Heterosexual Physical Exam Const: Other: Appearance: Alert. Oriented X3. No acute distress. Eyes: Pupils equal, round and reactive to light. ENT: Pharynx normal. Neck: Normal inspection. Neck supple. No lymph nodes noted. No crepitus CVS: Normal heart rate and rhythm. Pulses normal. Normal S1 and S2 Respiratory: No respiratory distress. Breath sounds normal. No Wheezing. No rales Abdomen: Soft and nontender. No rigidity. No distention. Skin: Skin warm and dry. Normal skin color. Normal skin turgor. Extremities: No lower extremity edema. No Lacerations. No Rash Neuro: Oriented X 3. No motor deficit. No sensory deficit. Moving all extremities. No slurred speech. CN 2 through 12 grossly intact Psych: calm, cooperative, normal affect Course Course Course Narrative: Patient is well known to our service. Patient is frequently evaluated at the emergency room for suicidal ideation. Usually states tonight and in the morning patient is no longer suicidal. -all of patient's labs pending -care team consult pending -physician observation started at 22:40 Medical Decision Making Differential Diagnosis Differential Diagnoses: The differential diagnosis associated with the presentation includes (Suicidal ideation, anxiety, depression) Admission/Observation Consideration of admission/observation: Escalation of care including admission/observation considered (Patient likely to stay overnight in the [facility]) Discharge Plan Discharge Clinical Impression: Suicidal ideation Patient Disposition: Still a Patient Prescriptions: No Action ropinirole 1 mg Tablet 1 mg PO BEDTIME Qty: 30 0RF nicotine 14 mg/24 hr Patch 24 Hour 14 mg transdermal DAILY Qty: 30 0RF ipratropium-albuterol 0.5 mg-3 mg(2.5 mg base)/3 mL Solution For Nebulization 3 ml inhalation RQ6H Qty: 90 0RF valacyclovir 1 gram Tablet 1,000 mg PO BID Qty: 30 0RF olanzapine 10 mg Tablet 10 mg PO BEDTIME Qty: 30 0RF metronidazole 500 mg Tablet 500 mg PO Q12H Qty: 14 0RF clonidine HCl 0.2 mg Tablet 0.2 mg PO BEDTIME Qty: 30 0RF Protocol: Hold for SBP< HOLD for SBP < : 90 albuterol sulfate [Ventolin HFA] 90 mcg/actuation Hfa Aerosol Inhaler 2 puff inhalation Q4H PRN (Reason: shortness of breath or wheezing) Qty: 6.7 0RF Spiriva with HandiHaler 18 mcg Capsule, W/Inhalation Device 18 mcg inhalation RDAILY Qty: 20 0RF ferrous sulfate 324 mg (65 mg iron) Tablet,Delayed Release (Dr/Ec) 324 mg PO DAILY Qty: 30 0RF lithium carbonate 450 mg tablet extended release 1,350 mg PO BEDTIME Qty: 90 0RF cyanocobalamin (vitamin B-12) [Vitamin B-12] 100 mcg Tablet 100 mcg PO DAILY Qty: 30 0RF omeprazole 20 mg Capsule,Delayed Release(Dr/Ec) 20 mg PO DAILY@0630 Qty: 30 0RF cholecalciferol (vitamin D3) 25 mcg (1,000 unit) Tablet 25 mcg PO DAILY Qty: 30 0RF gabapentin 600 mg tablet 600 mg PO BEDTIME
[2023-05-14 23:09] LABS: Appearance Urine Cloudy; Color Urine Dark Yellow; Glucose Urine UA Negative (Negative); Leukocyte Esterase Urine Trace (Negative); Nitrite Urine Negative (Negative); Specific Gravity - Urine 1.025 (1.005-1.025); UMIC TRIGGER UA YES; Urine Blood Negative (Negative); Urine Ketones Trace mg/dL (Negative); Urine Protein Trace mg/dL (Neg-Trace)
[2023-05-14 23:14] LABS: Bacteria Urine 4+ (None Seen); Hyaline Casts Urine 0-2 /LPF (0-2); RBC Urine 0-2 /HPF (0-2); Squamous Epithelial Cell Urine >20 /HPF (0-2)
[2023-05-14 23:20] LABS: Amphetamine Screen Urine Not Detected (Not Detect); Barbiturates, Urine Not Detected (Not Detect); Benzodiazepines Screen Urine Not Detected (Not Detect); Cannabinoid Screen Urine Not Detected (Not Detect); Cocaine Screen Urine POSITIVE (Not Detect); Fentanyl, urine Not Detected (Not Detect); Opiate Screen Urine Not Detected (Not Detect); Phencyclidine Screen Urine Not Detected (Not Detect)
[2023-05-15 05:36] LABS: MANUAL DIFF FLAG NO
[2023-05-15 05:37] LABS: Basophils Absolute Auto 0.1 X10*3/uL (0.0-0.2); Basophils Percent Auto 1.1 % (0-2); Eosinophils Absolute Auto 0.2 X10*3/uL (0.0-0.4); Eosinophils Percent Auto 2.7 % (0-4); Hematocrit 43.3 % (37.0-47.0); Hemoglobin 13.8 g/dl (12.0-16.0); Imm Gran Abs Auto 0.02 X10*3/uL (0.00-0.03); Imm Gran Pct Auto 0.2 % (0.0-0.4); Lymphocytes Absolute Auto 2.2 X10*3/uL (1.2-4.9); Lymphocytes Percent Auto 26.4 % (20-40); Mean Corpuscular HGB Conc 31.9 g/dl (31.0-35.0); Mean Corpuscular Hemoglobin 32.5 pg (27.0-33.0); Mean Corpuscular Volume 101.9 fL (80.0-98.0); Mean Platelet Volume 10.1 fL (9.4-12.3); Monocytes Absolute Auto 0.5 X10*3/uL (0.1-1.2); Monocytes Percent Auto 6.4 % (2-11); Neutrophils Absolute Auto 5.2 x10*3/uL (2.0-8.3); Neutrophils Percent Auto 63.2 % (45-73); Platelet Count 241 X10*3/uL (160-400); Red Blood Count 4.25 X10*6/uL (4.20-5.50); Red Cell Distribution Width 13.1 % (11.0-16.0); White Blood Count 8.2 X10*3/uL (4.8-10.8)
[2023-05-15 05:45] LABS: Lithium 1.21 mmol/L (0.60-1.20)
[2023-05-15 05:57] LABS: Alanine Aminotransferase 13 U/L (0-31); Albumin Level 3.8 g/dL (3.5-5.0); Alkaline Phosphatase 66 U/L (39-117); Anion Gap 12 (12-20); Aspartate Amino Transferase 10 U/L (5-31); Bilirubin Total 0.1 mg/dL (0.0-1.0); Blood Urea Nitrogen 10 mg/dL (9-16); Calcium 9.8 mg/dL (8.4-10.2); Carbon Dioxide 27 mmol/L (22-29); Chloride 106 mmol/L (96-108); Creatinine Clr Calc Pharmacy 112.6; Estimated Glomerular Filt Rate > 60; Ethanol < 10 mg/dL; Glucose Random 147 mg/dL (60-115); Potassium 3.9 mmol/L (3.3-5.1); Sodium 141 mmol/L (135-145); Total Protein 6.2 g/dL (6.5-8.0)
--- NOTE | 2023-05-15 06:20 | PC.NURSE ---
Patient slept through the night, no distress observed/reported, behavior non concerning, care consult ordered for SI, pending evaluation in the morning, med rec completed/pending provider's approval, labs completed/resulted, gait independent with walker, VSS, will continue to monitor.
[2023-05-15] MEDS: Cyanocobalamin (Vitamin B-12) 100 MCG TABLET PO (08:09)
[2023-05-15] MEDS: Cholecalciferol (Vitamin D3) 25 MCG TABLET PO (08:09)
[2023-05-15] MEDS: Omeprazole 20 MG CAPSULE.DR PO (08:09)
[2023-05-15] MEDS: Ferrous Sulfate 324 MG TABLET.DR PO (08:09)
[2023-05-15] MEDS: Nicotine 14 MG PATCH.TD24 TRANSDERMA (08:30)
[2023-05-15] MEDS: valACYclovir HCL 1,000 MG TABLET 1000 MG PO (08:30)
--- NOTE | 2023-05-15 09:14 | PC.NURSE ---
assumed care of pt, sleeping at this time, will admin inhaler which was delivered by pharmacy when pt awakes. will ctm
[2023-05-15 10:56] VITALS: BP 141/90; PULSE 88; RESP 20; TEMP 37; O2SAT 86
[2023-05-15] MEDS: Albuterol Sulfate 90 MCG 8 GM INHALER 2 PUFF INHALE (11:02)
--- NOTE | 2023-05-15 11:04 | PC.NURSE ---
pt woke up feeling SOB and wheezy, given previously scheduled Spiriva and PRN Ventolin. Called resp for duoneb
--- NOTE | 2023-05-15 11:10 | PC.NURSE ---
after spiriva and Ventolin, pt at 90% RA, awaiting Resp for albuterol
--- NOTE | 2023-05-15 11:41 | PC.NURSE ---
respiratory with patient
--- NOTE | 2023-05-15 11:53 | PC.NURSE ---
durorob completed, sats 94% will ctm. denies SI at this time
[2023-05-15 11:54] VITALS: PULSE 78; RESP 20; O2SAT 64
[2023-05-15 12:01] VITALS: PULSE 91; RESP 16; O2SAT 94
[2023-05-15] MEDS: Albuterol/Iprat 2.5/0.5MG 3 ML AMPUL.NEB INHALE (12:01)
== END 2023-05-15 12:20 | disposition home or self-care (01) ==
PROVIDERS: Emergency Provider Emergency Medicine
DX: R45.851 Suicidal ideations (principal); F31.9 Bipolar disorder, unspecified; F41.9 Anxiety disorder, unspecified; F14.10 Cocaine abuse, uncomplicated; F17.210 Nicotine dependence, cigarettes, uncomplicated; Z79.899 Other long term (current) drug therapy
CPT/HCPCS: 36415; 80053; 80178; 80307; 81001; 85025; 94640; 99283; 99284; S9485

== ENCOUNTER 2023-05-20 20:23 | Emergency (ER) | payer OTHER, MEDICAID, SELFPAY ==
[2023-05-20 20:31] VITALS: BP 112/62; PULSE 82; RESP 18; TEMP 36.7; O2SAT 93; BMI 40.3
[2023-05-20 20:46] LABS: MANUAL DIFF FLAG NO
[2023-05-20 20:49] LABS: Basophils Absolute Auto 0.1 X10*3/uL (0.0-0.2); Basophils Percent Auto 0.9 % (0-2); Eosinophils Absolute Auto 0.2 X10*3/uL (0.0-0.4); Eosinophils Percent Auto 2.2 % (0-4); Hematocrit 46.1 % (37.0-47.0); Hemoglobin 14.4 g/dl (12.0-16.0); Imm Gran Abs Auto 0.03 X10*3/uL (0.00-0.03); Imm Gran Pct Auto 0.3 % (0.0-0.4); Lymphocytes Absolute Auto 2.9 X10*3/uL (1.2-4.9); Lymphocytes Percent Auto 29.6 % (20-40); Mean Corpuscular HGB Conc 31.2 g/dl (31.0-35.0); Mean Corpuscular Hemoglobin 31.6 pg (27.0-33.0); Mean Corpuscular Volume 101.1 fL (80.0-98.0); Mean Platelet Volume 10.1 fL (9.4-12.3); Monocytes Absolute Auto 0.5 X10*3/uL (0.1-1.2); Monocytes Percent Auto 5.2 % (2-11); Neutrophils Absolute Auto 6.1 x10*3/uL (2.0-8.3); Neutrophils Percent Auto 61.8 % (45-73); Platelet Count 293 X10*3/uL (160-400); Red Blood Count 4.56 X10*6/uL (4.20-5.50); Red Cell Distribution Width 12.6 % (11.0-16.0); White Blood Count 9.8 X10*3/uL (4.8-10.8)
[2023-05-20 20:58] LABS: Lithium 1.52 mmol/L (0.60-1.20)
[2023-05-20 21:04] LABS: Alanine Aminotransferase 13 U/L (0-31); Albumin Level 4.3 g/dL (3.5-5.0); Alkaline Phosphatase 69 U/L (39-117); Anion Gap 11 (12-20); Aspartate Amino Transferase 11 U/L (5-31); Bilirubin Total 0.2 mg/dL (0.0-1.0); Blood Urea Nitrogen 5 mg/dL (9-16); Calcium 10.1 mg/dL (8.4-10.2); Carbon Dioxide 31 mmol/L (22-29); Chloride 99 mmol/L (96-108); Creatinine Clr Calc Pharmacy 102.7; Estimated Glomerular Filt Rate > 60; Ethanol < 10 mg/dL; Glucose Random 114 mg/dL (60-115); Potassium 4.3 mmol/L (3.3-5.1); Sodium 137 mmol/L (135-145); Total Protein 7.1 g/dL (6.5-8.0)
[2023-05-20 21:05] LABS: Acetaminophen LAB < 17 mcg/mL (<30); Salicylate < 5.0 mg/dL (15-30)
[2023-05-20 21:09] LABS: Appearance Urine Clear; Color Urine Yellow; Glucose Urine UA Negative (Negative); Leukocyte Esterase Urine Trace (Negative); Nitrite Urine Negative (Negative); PH 6.5 (5.0-9.0); UMIC TRIGGER UA YES; Urine Blood Negative (Negative); Urine Ketones Trace mg/dL (Negative); Urine Protein Negative (Neg-Trace)
[2023-05-20 21:14] LABS: Bacteria Urine 1+ (None Seen); Hyaline Casts Urine 0-2 /LPF (0-2); RBC Urine 0-2 /HPF (0-2)
[2023-05-20 21:19] LABS: Amphetamine Screen Urine Not Detected (Not Detect); Barbiturates, Urine Not Detected (Not Detect); Benzodiazepines Screen Urine Not Detected (Not Detect); Cannabinoid Screen Urine Not Detected (Not Detect); Cocaine Screen Urine Not Detected (Not Detect); Fentanyl, urine Not Detected (Not Detect); Opiate Screen Urine Not Detected (Not Detect); Phencyclidine Screen Urine Not Detected (Not Detect)
--- NOTE | 2023-05-20 21:52 | ED.PSYCH ---
HPI - Psych General Chief Complaint: Psychiatric Symptoms Stated Complaint: SI Time Seen by Provider: 05/20/23 20:57 Source: patient Mode of arrival: EMS Limitations: no limitations History of Present Illness HPI Narrative: Patient comes to the emergency room complaining of suicidal ideation, states she would overdose with Tylenol. Of note, patient has been evaluated multiple times for the same complaint. Related Data Home Medications Medication Instructions Recorded Confirmed gabapentin 600 mg tablet 600 mg PO BEDTIME 04/12/23 05/20/23 lithium carbonate 450 mg 1,350 mg PO BEDTIME 05/14/23 05/20/23 tablet,extended release Previous Rx's Medication Instructions Recorded albuterol sulfate 90 mcg/actuation 2 puff inhalation Q4H PRN 03/22/23 aerosol inhaler (Ventolin HFA) shortness of breath or wheezing #6.7 grams cholecalciferol (vitamin D3) 25 25 mcg PO DAILY #30 tabs 03/22/23 mcg (1,000 unit) tablet clonidine HCl 0.2 mg tablet 0.2 mg PO BEDTIME #30 tabs 03/22/23 cyanocobalamin (vitamin B-12) 100 100 mcg PO DAILY #30 tabs 03/22/23 mcg tablet (Vitamin B-12) ferrous sulfate 324 mg (65 mg 324 mg PO DAILY #30 tabs 03/22/23 iron) tablet,delayed release ipratropium 0.5 mg-albuterol 3 mg 3 ml inhalation RQ6H #90 mL 03/22/23 (2.5 mg base)/3 mL nebulization soln nicotine 14 mg/24 hr daily 14 mg transdermal DAILY #30 ea 03/22/23 transdermal patch olanzapine 10 mg tablet 10 mg PO BEDTIME #30 tabs 03/22/23 omeprazole 20 mg capsule,delayed 20 mg PO DAILY@0630 #30 caps 03/22/23 release ropinirole 1 mg tablet 1 mg PO BEDTIME #30 tabs 03/22/23 tiotropium bromide 18 mcg capsule 18 mcg inhalation RDAILY #20 03/22/23 with inhalation device (Spiriva inhalations with HandiHaler) valacyclovir 1 gram tablet 1,000 mg PO BID #30 tabs 03/22/23 Allergies Allergy/AdvReac Type Severity Reaction Status Date / Time ampicillin Allergy Rash Verified 12/26/22 10:32 Penicillins Allergy Anaphylaxis Verified 03/15/23 17:49 latex AdvReac Rash Verified 03/15/23 17:49 Latex, Natural Rubber AdvReac Rash Verified 03/15/23 17:49 seafood AdvReac Stomach Verified 12/26/22 10:32 Upset Sulfa (Sulfonamide AdvReac Hives Verified 03/15/23 17:49 Antibiotics) Review of Systems Review of Systems: Constitutional : No Weight loss, No Fever, No Chills, No Night Sweats, No Fatigue, No Malaise ENT/Mouth : No Hearing loss, No Ear Pain, No Nasal Congestion, No Sinus Pain, No Hoarseness, No sore throat, No Rhinorrhea, No Swallowing Difficulty Eyes: No Eye Pain, No Swelling, No Redness, No Foreign Body, No Discharge, No Vision Changes Cardiovascular : No Chest Pain, No SOB, No Dyspnea on Exertion, No Orthopnea, No Edema, No Palpitations Respiratory : No Cough, No Sputum, No Wheezing, No Smoke Exposure, No Dyspnea Gastrointestinal : No Nausea, No Vomiting, No Diarrhea, No Constipation, No abdominal Pain, No Hematochezia, No Melena Genitourinary : no irregular bleeding, No Dysuria, No Urinary Frequency, No Hematuria, No Urinary Incontinence, No Urgency, No Flank Pain, No Urinary Flow Changes, No Hesitancy Musculoskeletal : No joint pain, No Myalgias, No Joint Swelling Skin : No Skin Lesions, No rash Neuro : No Weakness, No Numbness, No Paresthesias, No Loss of Consciousness, No Dizziness, No Headache Psych : Anxiety, depression, complaining of suicidal ideation Heme/Lymph: No Bruising, No Bleeding,No Lymphadenopathy Endocrine : No Polyuria, No Polydipsia, No Temperature Intolerance [facility] Past Medical History Medical History Asthma exacerbation in COPD Asthma-COPD overlap syndrome Bipolar disorder Bipolar I disorder Borderline personality disorder Chronic lung disease COPD (chronic obstructive pulmonary disease) COPD (chronic obstructive pulmonary disease) Depression Drug abuse Herpes Intermittent explosive disorder 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 FABIOLA (obstructive sleep apnea) Post traumatic stress disorder (PTSD) Tobacco use Tobacco use disorder Surgical History History of ankle surgery History of appendectomy History of back surgery Hx of cholecystectomy Family History Family History Mother COPD (chronic obstructive pulmonary disease) Social History Social History Household Members: Unknown / Unable to assess Household Members Other:: Assisted in [place] Housing: Apartment Housing Other:: Sleeps on the couch at [facility] house Do you presently have visiting nurse or other home services: Yes (twice a day) Unable to assess alcohol history related to: Unknown Alcohol intake: former Patient Tobacco Use Status: Current everyday Tobacco user Tobacco use type: Cigarette Cigarette Packs Per Day: 3 Cigarettes Per Day: 10 Years Smoked: 35 e-Cigarette/Vaping Use: Former Use Second Hand Smoke Exposure: No Substance Use Type: Crack/Cocaine Advance Directives: Yes Advance Directives on File: Yes Advance Directives Date on File: 06/17/22 service: No Current occupational status: unemployed and disabled Sexual orientation: Straight/Heterosexual Physical Exam Vital Signs: Vital Signs: Last Vital Signs Temp 98.1 F 05/20/23 20:31 Pulse 82 05/20/23 20:31 Resp 18 05/20/23 20:31 BP 112/62 05/20/23 20:31 Pulse Ox 93 05/20/23 20:31 O2 Del Method Room Air 05/20/23 20:31 BMI result Body Mass Index 40.3 Const: Other: Appearance: Alert. Oriented X3. No acute distress. Eyes: Pupils equal, round and reactive to light. ENT: Pharynx normal. Neck: Normal inspection. Neck supple. No lymph nodes noted. No crepitus CVS: Normal heart rate and rhythm. Pulses normal. Normal S1 and S2 Respiratory: No respiratory distress. Breath sounds normal. No Wheezing. No rales Abdomen: Soft and nontender. No rigidity. No distention. Skin: Skin warm and dry. Normal skin color. Normal skin turgor. Extremities: No lower extremity edema. No Lacerations. No Rash Neuro: Oriented X 3. No motor deficit. No sensory deficit. Moving all extremities. No slurred speech. CN 2 through 12 grossly intact Psych: calm, cooperative, normal affect Course Course Course Narrative: -patient's labs pending -care team consult pending -physician observation started at 21:55 Medical Decision Making Medical Decision Making MDM Narrative: -my interpretation of labs: Patient's lithium level is a bit more elevated than it should be. Recommendations for now: Decrease lithium to 900 mg for now. Tomorrow psychiatry consult. Differential Diagnosis Differential Diagnoses: The differential diagnosis associated with the presentation includes (Suicidal ideation, anxiety, depression) Admission/Observation Consideration of admission/observation: Escalation of care including admission/observation considered (Patient with stool overnight emergency room waiting to be seen by the care team and psychiatry tore her medication advice) Lab Data MDM Lab Attestation statement: I reviewed the patient's lab results. 05/20/23 20:42 05/20/23 20:42 Labs: Lab Results 05/20/23 05/20/23 05/20/23 Range/Units 20:42 20:42 20:42 WBC (4.8-10.8) X10*3/uL RBC (4.20-5.50) X10*6/uL Hgb (12.0-16.0) g/dl Hct (37.0-47.0) % MCV (80.0-98.0) fL MCH (27.0-33.0) pg MCHC (31.0-35.0) g/dl RDW (11.0-16.0) % Plt Count (160-400) X10*3/uL MPV (9.4-12.3) fL Immature Gran % (Auto) (0.0-0.4) % Neut % (Auto) (45-73) % Lymph % (Auto) (20-40) % [place] % (Auto) (2-11) % Eos % (Auto) (0-4) % Baso % (Auto) (0-2) % Lymph # (Auto) (1.2-4.9) X10*3/uL [place] # (Auto) (0.1-1.2) X10*3/uL Eos # (Auto) (0.0-0.4) X10*3/uL Baso # (Auto) (0.0-0.2) X10*3/uL Abs Immat Gran (auto) (0.00-0.03) X10*3/uL Absolute Neuts (auto) (2.0-8.3) x10*3/uL Absolute Nucleated RBC (0.0-0.012) X10*3/uL Nucleated RBC % (auto) (0.0-0.2) /100WBC Sodium 137 (135-145) mmol/L Potassium 4.3 (3.3-5.1) mmol/L Chloride 99 (96-108) mmol/L Carbon Dioxide 31 H (22-29) mmol/L Anion Gap 11 L (12-20) BUN 5 L (9-16) mg/dL Creatinine 0.79 (0.5-1.4) mg/dL Estim Creat Clear Calc 102.7 Estimated GFR > 60 Random Glucose 114 (60-115) mg/dL Calcium 10.1 (8.4-10.2) mg/dL Total Bilirubin 0.2 (0.0-1.0) mg/dL AST 11 (5-31) U/L ALT 13 (0-31) U/L Alkaline Phosphatase 69 (39-117) U/L Total Protein 7.1 (6.5-8.0) g/dL Albumin 4.3 (3.5-5.0) g/dL Urine Color Urine Appearance Urine pH (5.0-9.0) Ur Specific [place] (1.005-1.025) Urine Protein (Neg-Trace) mg/dL Urine Glucose (UA) (Negative) mg/dL Urine Ketones (Negative) mg/dL Urine Blood (Negative) Urine Nitrite (Negative) Ur Leukocyte Esterase (Negative) Urine RBC (0-2) /HPF Urine WBC (0-5) /HPF Ur Squamous Epith Cells (0-2) /HPF Urine Bacteria (None Seen) Hyaline Casts (0-2) /LPF Salicylates < 5.0 L (15-30) mg/dL Urine Opiates Screen (Not Detect) Urine Fentanyl Screen (Not Detect) Acetaminophen < 17 (<30) mcg/mL Ur Barbiturates Screen (Not Detect) Ur Phencyclidine Scrn (Not Detect) Ur Amphetamines Screen (Not Detect) U Benzodiazepines Scrn (Not Detect) [place] 1.52 H* (0.60-1.20) mmol/L Urine Cocaine Screen (Not Detect) U Marijuana (THC) Screen (Not Detect) Ethyl Alcohol < 10 mg/dL 05/20/23 05/20/23 05/20/23 Range/Units 20:42 21:00 21:00 WBC 9.8 (4.8-10.8) X10*3/uL RBC 4.56 (4.20-5.50) X10*6/uL Hgb 14.4 (12.0-16.0) g/dl Hct 46.1 (37.0-47.0) % MCV 101.1 H (80.0-98.0) fL MCH 31.6 (27.0-33.0) pg MCHC 31.2 (31.0-35.0) g/dl RDW 12.6 (11.0-16.0) % Plt Count 293 (160-400) X10*3/uL MPV 10.1 (9.4-12.3) fL Immature Gran % (Auto) 0.3 (0.0-0.4) % Neut % (Auto) 61.8 (45-73) % Lymph % (Auto) 29.6 (20-40) % [place] % (Auto) 5.2 (2-11) % Eos % (Auto) 2.2 (0-4) % Baso % (Auto) 0.9 (0-2) % Lymph # (Auto) 2.9 (1.2-4.9) X10*3/uL [place] # (Auto) 0.5 (0.1-1.2) X10*3/uL Eos # (Auto) 0.2 (0.0-0.4) X10*3/uL Baso # (Auto) 0.1 (0.0-0.2) X10*3/uL Abs Immat Gran (auto) 0.03 (0.00-0.03) X10*3/uL Absolute Neuts (auto) 6.1 (2.0-8.3) x10*3/uL Absolute Nucleated RBC 0.000 (0.0-0.012) X10*3/uL Nucleated RBC % (auto) 0.0 (0.0-0.2) /100WBC Sodium (135-145) mmol/L Potassium (3.3-5.1) mmol/L Chloride (96-108) mmol/L Carbon Dioxide (22-29) mmol/L Anion Gap (12-20) BUN (9-16) mg/dL Creatinine (0.5-1.4) mg/dL Estim Creat Clear Calc Estimated GFR Random Glucose (60-115) mg/dL Calcium (8.4-10.2) mg/dL Total Bilirubin (0.0-1.0) mg/dL AST (5-31) U/L ALT (0-31) U/L Alkaline Phosphatase (39-117) U/L Total Protein (6.5-8.0) g/dL Albumin (3.5-5.0) g/dL Urine Color Yellow Urine Appearance Clear Urine pH 6.5 (5.0-9.0) Ur Specific [place] 1.020 (1.005-1.025) Urine Protein Negative (Neg-Trace) mg/dL Urine Glucose (UA) Negative (Negative) mg/dL Urine Ketones Trace (Negative) mg/dL Urine Blood Negative (Negative) Urine Nitrite Negative (Negative) Ur Leukocyte Esterase Trace H (Negative) Urine RBC 0-2 (0-2) /HPF Urine WBC 6-10 H (0-5) /HPF Ur Squamous Epith Cells 11-20 (0-2) /HPF Urine Bacteria 1+ (None Seen) Hyaline Casts 0-2 (0-2) /LPF Salicylates (15-30) mg/dL Urine Opiates Screen Not Detected (Not Detect) Urine Fentanyl Screen Not Detected (Not Detect) Acetaminophen (<30) mcg/mL Ur Barbiturates Screen Not Detected (Not Detect) Ur Phencyclidine Scrn Not Detected (Not Detect) Ur Amphetamines Screen Not Detected (Not Detect) U Benzodiazepines Scrn Not Detected (Not Detect) [place] (0.60-1.20) mmol/L Urine Cocaine Screen Not Detected (Not Detect) U Marijuana (THC) Screen Not Detected (Not Detect) Ethyl Alcohol mg/dL Discharge Plan Discharge Clinical Impression: Anxiety Patient Disposition: Still a Patient Prescriptions: No Action ropinirole 1 mg Tablet 1 mg PO BEDTIME Qty: 30 0RF nicotine 14 mg/24 hr Patch 24 Hour 14 mg transdermal DAILY Qty: 30 0RF ipratropium-albuterol 0.5 mg-3 mg(2.5 mg base)/3 mL Solution For Nebulization 3 ml inhalation RQ6H Qty: 90 0RF valacyclovir 1 gram Tablet 1,000 mg PO BID Qty: 30 0RF olanzapine 10 mg Tablet 10 mg PO BEDTIME Qty: 30 0RF clonidine HCl 0.2 mg Tablet 0.2 mg PO BEDTIME Qty: 30 0RF Protocol: Hold for SBP< HOLD for SBP < : 90 albuterol sulfate [Ventolin HFA] 90 mcg/actuation Hfa Aerosol Inhaler 2 puff inhalation Q4H PRN (Reason: shortness of breath or wheezing) Qty: 6.7 0RF Spiriva with HandiHaler 18 mcg Capsule, W/Inhalation Device 18 mcg inhalation RDAILY Qty: 20 0RF ferrous sulfate 324 mg (65 mg iron) Tablet,Delayed Release (Dr/Ec) 324 mg PO DAILY Qty: 30 0RF cyanocobalamin (vitamin B-12) [Vitamin B-12] 100 mcg Tablet 100 mcg PO DAILY Qty: 30 0RF omeprazole 20 mg Capsule,Delayed Release(Dr/Ec) 20 mg PO DAILY@0630 Qty: 30 0RF cholecalciferol (vitamin D3) 25 mcg (1,000 unit) Tablet 25 mcg PO DAILY Qty: 30 0RF gabapentin 600 mg tablet 600 mg PO BEDTIME lithium carbonate 450 mg tablet extended release 1,350 mg PO BEDTIME
[2023-05-21 00:15] LABS: COVID-19 Test Negative (Negative); IDNOW Serial# 6674DD1D
--- NOTE | 2023-05-21 02:10 | PC.NURSE ---
Patient is currently in bed appears sleeping, behavior non concerning, med rec completed/pending provider's approval, [place] level 1.52 provider made aware, psych consult to review lithium dose ordered, asymptomatic of lithium toxicity, care assessed the patient, disposition pending, revaluation in the morning, VSS, will continue to monitor.
[2023-05-21 05:50] VITALS: RESP 17
--- NOTE | 2023-05-21 07:10 | PC.NURSE ---
patient seated in rear lounge area, consuming breakfast, making expressive noises periodically appears in no distress.
[2023-05-21 11:16] LABS: Lithium 1.56 mmol/L (0.60-1.20)
== END 2023-05-21 12:01 | disposition home or self-care (01) ==
PROVIDERS: Social Worker; Emergency Provider Emergency Medicine
DX: F41.9 Anxiety disorder, unspecified (principal); R45.851 Suicidal ideations; Z20.822 Contact with and (suspected) exposure to COVID-19; F43.10 Post-traumatic stress disorder, unspecified; F14.10 Cocaine abuse, uncomplicated; F17.210 Nicotine dependence, cigarettes, uncomplicated; Z79.899 Other long term (current) drug therapy
CPT/HCPCS: 36415; 80053; 80143; 80178; 80179; 80307; 81001; 85025; 87635; 99284; S9485

== ENCOUNTER 2023-05-27 20:54 | Emergency (ER) | payer OTHER, SELFPAY ==
--- NOTE | 2023-05-27 21:02 | ECG_ITS ---
Test Reason : TYLENOL OD Blood Pressure : / mmHG Vent. Rate : 094 BPM Atrial Rate : 094 BPM P-R Int : 152 ms QRS Dur : 082 ms QT Int : 374 ms P-R-T Axes : 025 020 013 degrees QTc Int : 467 ms Normal sinus rhythm Nonspecific T wave abnormality Prolonged QT Abnormal ECG When compared with ECG of 11-MAY-2023 20:16, No significant change was found Referred By: Priscila Lynn Electronically Signed By:VAIBHAV KILLIAN MD
--- NOTE | 2023-05-27 21:05 | ED.GENADULT ---
HPI - General Adult General Chief complaint: Overdose Stated complaint: SI, TYLENOL OD Time Seen by Provider: 05/27/23 21:00 Source: patient Mode of arrival: EMS Limitations: no limitations History of Present Illness HPI narrative: Patient comes to the emergency room complaining of suicidal attempt by overdosing with Tylenol. Patient states that she took 500 mg tablets, 16 of them, total of 8000 mg of Tylenol approximately 20 minutes prior to arrival. Patient is well-known to our service, patient has been multiple times evaluated by the care team for suicidal ideation/attempts Related Data Home Medications Medication Instructions Recorded Confirmed gabapentin 600 mg tablet 600 mg PO BEDTIME 04/12/23 05/20/23 lithium carbonate 450 mg 1,350 mg PO BEDTIME 05/14/23 05/20/23 tablet,extended release Previous Rx's Medication Instructions Recorded albuterol sulfate 90 mcg/actuation 2 puff inhalation Q4H PRN 03/22/23 aerosol inhaler (Ventolin HFA) shortness of breath or wheezing #6.7 grams cholecalciferol (vitamin D3) 25 25 mcg PO DAILY #30 tabs 03/22/23 mcg (1,000 unit) tablet clonidine HCl 0.2 mg tablet 0.2 mg PO BEDTIME #30 tabs 03/22/23 cyanocobalamin (vitamin B-12) 100 100 mcg PO DAILY #30 tabs 03/22/23 mcg tablet (Vitamin B-12) ferrous sulfate 324 mg (65 mg 324 mg PO DAILY #30 tabs 03/22/23 iron) tablet,delayed release ipratropium 0.5 mg-albuterol 3 mg 3 ml inhalation RQ6H #90 mL 03/22/23 (2.5 mg base)/3 mL nebulization soln nicotine 14 mg/24 hr daily 14 mg transdermal DAILY #30 ea 03/22/23 transdermal patch olanzapine 10 mg tablet 10 mg PO BEDTIME #30 tabs 03/22/23 omeprazole 20 mg capsule,delayed 20 mg PO DAILY@0630 #30 caps 03/22/23 release ropinirole 1 mg tablet 1 mg PO BEDTIME #30 tabs 03/22/23 tiotropium bromide 18 mcg capsule 18 mcg inhalation RDAILY #20 03/22/23 with inhalation device (Spiriva inhalations with HandiHaler) valacyclovir 1 gram tablet 1,000 mg PO BID #30 tabs 03/22/23 Allergies Allergy/AdvReac Type Severity Reaction Status Date / Time ampicillin Allergy Rash Verified 12/26/22 10:32 Penicillins Allergy Anaphylaxis Verified 03/15/23 17:49 latex AdvReac Rash Verified 03/15/23 17:49 Latex, Natural Rubber AdvReac Rash Verified 03/15/23 17:49 seafood AdvReac Stomach Verified 12/26/22 10:32 Upset Sulfa (Sulfonamide AdvReac Hives Verified 03/15/23 17:49 Antibiotics) Review of Systems Review of Systems: Constitutional : No Weight loss, No Fever, No Chills, No Night Sweats, No Fatigue, No Malaise ENT/Mouth : No Hearing loss, No Ear Pain, No Nasal Congestion, No Sinus Pain, No Hoarseness, No sore throat, No Rhinorrhea, No Swallowing Difficulty Eyes: No Eye Pain, No Swelling, No Redness, No Foreign Body, No Discharge, No Vision Changes Cardiovascular : No Chest Pain, No SOB, No Dyspnea on Exertion, No Orthopnea, No Edema, No Palpitations Respiratory : No Cough, No Sputum, No Wheezing, No Smoke Exposure, No Dyspnea Gastrointestinal : No Nausea, No Vomiting, No Diarrhea, No Constipation, No abdominal Pain, No Hematochezia, No Melena Genitourinary : no irregular bleeding, No Dysuria, No Urinary Frequency, No Hematuria, No Urinary Incontinence, No Urgency, No Flank Pain, No Urinary Flow Changes, No Hesitancy Musculoskeletal : No joint pain, No Myalgias, No Joint Swelling Skin : No Skin Lesions, No rash Neuro : No Weakness, No Numbness, No Paresthesias, No Loss of Consciousness, No Dizziness, No Headache Psych : No Anxiety/Panic, complaining of suicide attempt, no HI Heme/Lymph: No Bruising, No Bleeding,No Lymphadenopathy Endocrine : No Polyuria, No Polydipsia, No Temperature Intolerance FORMERLY [facility], 1928–1983 Past Medical History Medical History Asthma exacerbation in COPD Asthma-COPD overlap syndrome Bipolar disorder Bipolar I disorder Borderline personality disorder Chronic lung disease COPD (chronic obstructive pulmonary disease) COPD (chronic obstructive pulmonary disease) Depression Drug abuse Herpes Intermittent explosive disorder 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 FABIOLA (obstructive sleep apnea) Post traumatic stress disorder (PTSD) Tobacco use Tobacco use disorder Surgical History History of ankle surgery History of appendectomy History of back surgery Hx of cholecystectomy Family History Family History Mother COPD (chronic obstructive pulmonary disease) Social History Social History Household Members: Unknown / Unable to assess Household Members Other:: [facility] in [place] Housing: Apartment Housing Other:: Sleeps on the couch at [facility] house Do you presently have visiting nurse or other home services: Yes (twice a day) Unable to assess alcohol history related to: Unknown Alcohol intake: former Patient Tobacco Use Status: Current everyday Tobacco user Tobacco use type: Cigarette Cigarette Packs Per Day: 3 Cigarettes Per Day: 10 Years Smoked: 35 Smoked in Last 30 Days: No e-Cigarette/Vaping Use: Former Use Second Hand Smoke Exposure: No Substance Use Type: Crack/Cocaine Advance Directives: Yes Advance Directives on File: Yes Advance Directives Date on File: 06/17/22 service: No Current occupational status: unemployed and disabled Sexual orientation: Straight/Heterosexual Physical Exam ED Vital Signs: Vital Signs - 24 hr 05/27/23 21:17 05/28/23 00:53 Temperature 98.9 F Pulse Rate 98 84 Respiratory Rate 16 18 Blood Pressure 113/62 110/62 Pulse Oximetry 95 91 L Oxygen Delivery Method Nasal Cannula Nasal Cannula Oxygen Flow Rate 3 BMI result Body Mass Index 41.5 Const Other: Appearance: Alert. Oriented X3. No acute distress. Eyes: Pupils equal, round and reactive to light. ENT: Pharynx normal. Neck: Normal inspection. Neck supple. No lymph nodes noted. No crepitus CVS: Normal heart rate and rhythm. Pulses normal. Normal S1 and S2 Respiratory: No respiratory distress. Breath sounds normal. No Wheezing. No rales Abdomen: Soft and nontender. No rigidity. No distention. Skin: Skin warm and dry. Normal skin color. Normal skin turgor. Extremities: No lower extremity edema. No Lacerations. No Rash Neuro: Oriented X 3. No motor deficit. No sensory deficit. Moving all extremities. No slurred speech. CN 2 through 12 grossly intact Psych: calm, cooperative, normal affect Course Course Course Narrative: -all of patient's labs pending -poison Control has been contacted Medications Administered Discontinued Medications Generic Name Dose Route Start Last Admin Trade Name Jacob PRN Reason Stop Dose Admin Charcoal 50 gm 05/27/23 21:30 05/27/23 21:38 Activated Charcoal 50 Gm/240 Ml Oral.Susp PO 05/27/23 21:31 50 gm ONCE ONE Administration Sodium Chloride 1,000 mls @ 999 mls/hr 05/27/23 21:01 05/27/23 21:35 Ns IVCONT 05/27/23 22:01 999 mls/hr .Q1H1M ONE Administration Medical Decision Making Medical Decision Making MDM Narrative: -patient attempted overdose with acetaminophen, admission considered -patient Control recommends activated charcoal p.o. -my interpretation of EKG: Normal sinus rhythm, heart rate 94, no ST segment depression or elevation nonspecific T-wave inversion in lead 3, QTC 467 -patient is symptomatic -my interpretation of labs: Hematology and chemistry and LFTs at baseline, initial acetaminophen levels elevated 64, below the toxic level for 1 hour. 4 hours later labs were repeated, acetaminophen level 26, still nontoxic. -patient medically cleared to be seen by behavioral health Differential Diagnosis Differential Diagnoses: The differential diagnosis associated with the presentation includes (Suicide attempt, anxiety, depression) Admission/Observation Consideration of admission/observation: Escalation of care including admission/observation considered Lab Data [facility] Lab Attestation statement: I reviewed the patient's lab results. 05/28/23 01:24 05/27/23 21:44 Labs: Lab Results 05/27/23 05/27/23 05/27/23 Range/Units 21:44 21:44 21:44 WBC (4.8-10.8) X10*3/uL RBC (4.20-5.50) X10*6/uL Hgb (12.0-16.0) g/dl Hct (37.0-47.0) % MCV (80.0-98.0) fL MCH (27.0-33.0) pg MCHC (31.0-35.0) g/dl RDW (11.0-16.0) % Plt Count MPV (9.4-12.3) fL Immature Gran % (Auto) (0.0-0.4) % Neut % (Auto) (45-73) % Lymph % (Auto) (20-40) % [place] % (Auto) (2-11) % Eos % (Auto) (0-4) % Baso % (Auto) (0-2) % Lymph # (Auto) (1.2-4.9) X10*3/uL [place] # (Auto) (0.1-1.2) X10*3/uL Eos # (Auto) (0.0-0.4) X10*3/uL Baso # (Auto) (0.0-0.2) X10*3/uL Abs Immat Gran (auto) (0.00-0.03) X10*3/uL Absolute Neuts (auto) (2.0-8.3) x10*3/uL Absolute Nucleated RBC (0.0-0.012) X10*3/uL Nucleated RBC % (auto) (0.0-0.2) /100WBC Smear Tech's Comments PT 11.3 (11.1-13.3) SEC INR 0.9 (0.9-1.1) Sodium 138 (135-145) mmol/L Potassium 4.5 (3.3-5.1) mmol/L Chloride 104 (96-108) mmol/L Carbon Dioxide 22 (22-29) mmol/L Anion Gap 17 (12-20) BUN 11 (9-16) mg/dL Creatinine 0.74 (0.5-1.4) mg/dL Estim Creat Clear Calc 107.7 Estimated GFR > 60 Random Glucose 119 H (60-115) mg/dL Calcium 9.5 (8.4-10.2) mg/dL Magnesium 2.1 (1.6-2.6) mg/dL Total Bilirubin 0.2 (0.0-1.0) mg/dL Direct Bilirubin < 0.2 (0.0-0.5) mg/dL AST 11 (5-31) U/L ALT 11 (0-31) U/L Alkaline Phosphatase 65 (39-117) U/L Ammonia 37 (13-55) umol/L Troponin I High Sens (<3.5-17.0) ng/L Total Protein 6.8 (6.5-8.0) g/dL Albumin 4.1 (3.5-5.0) g/dL Lipase 17 (8-78) U/L Salicylates (15-30) mg/dL Acetaminophen (<30) mcg/mL Ethyl Alcohol < 10 mg/dL 05/27/23 05/27/23 05/28/23 Range/Units 21:44 21:44 01:24 WBC 10.0 (4.8-10.8) X10*3/uL RBC 4.15 L (4.20-5.50) X10*6/uL Hgb 13.1 (12.0-16.0) g/dl Hct 42.5 (37.0-47.0) % MCV 102.4 H (80.0-98.0) fL MCH 31.6 (27.0-33.0) pg MCHC 30.8 L (31.0-35.0) g/dl RDW 13.0 (11.0-16.0) % Plt Count TNP MPV 10.9 (9.4-12.3) fL Immature Gran % (Auto) 0.4 (0.0-0.4) % Neut % (Auto) 61.4 (45-73) % Lymph % (Auto) 30.5 (20-40) % [place] % (Auto) 6.0 (2-11) % Eos % (Auto) 0.8 (0-4) % Baso % (Auto) 0.9 (0-2) % Lymph # (Auto) 3.0 (1.2-4.9) X10*3/uL [place] # (Auto) 0.6 (0.1-1.2) X10*3/uL Eos # (Auto) 0.1 (0.0-0.4) X10*3/uL Baso # (Auto) 0.1 (0.0-0.2) X10*3/uL Abs Immat Gran (auto) 0.04 H (0.00-0.03) X10*3/uL Absolute Neuts (auto) 6.1 (2.0-8.3) x10*3/uL Absolute Nucleated RBC 0.000 (0.0-0.012) X10*3/uL Nucleated RBC % (auto) 0.0 (0.0-0.2) /100WBC Smear Tech's Comments VERIFIED PT (11.1-13.3) SEC INR (0.9-1.1) Sodium (135-145) mmol/L Potassium (3.3-5.1) mmol/L Chloride (96-108) mmol/L Carbon Dioxide (22-29) mmol/L Anion Gap (12-20) BUN (9-16) mg/dL Creatinine (0.5-1.4) mg/dL Estim Creat Clear Calc Estimated GFR Random Glucose (60-115) mg/dL Calcium (8.4-10.2) mg/dL Magnesium (1.6-2.6) mg/dL Total Bilirubin (0.0-1.0) mg/dL Direct Bilirubin (0.0-0.5) mg/dL AST (5-31) U/L ALT (0-31) U/L Alkaline Phosphatase (39-117) U/L Ammonia (13-55) umol/L Troponin I High Sens 2.9 (<3.5-17.0) ng/L Total Protein (6.5-8.0) g/dL Albumin (3.5-5.0) g/dL Lipase (8-78) U/L Salicylates < 5.0 L (15-30) mg/dL Acetaminophen 64 H* (<30) mcg/mL Ethyl Alcohol mg/dL 05/28/23 Range/Units 01:24 WBC (4.8-10.8) X10*3/uL RBC (4.20-5.50) X10*6/uL Hgb (12.0-16.0) g/dl Hct (37.0-47.0) % MCV (80.0-98.0) fL MCH (27.0-33.0) pg MCHC (31.0-35.0) g/dl RDW (11.0-16.0) % Plt Count MPV (9.4-12.3) fL Immature Gran % (Auto) (0.0-0.4) % Neut % (Auto) (45-73) % Lymph % (Auto) (20-40) % [place] % (Auto) (2-11) % Eos % (Auto) (0-4) % Baso % (Auto) (0-2) % Lymph # (Auto) (1.2-4.9) X10*3/uL [place] # (Auto) (0.1-1.2) X10*3/uL Eos # (Auto) (0.0-0.4) X10*3/uL Baso # (Auto) (0.0-0.2) X10*3/uL Abs Immat Gran (auto) (0.00-0.03) X10*3/uL Absolute Neuts (auto) (2.0-8.3) x10*3/uL Absolute Nucleated RBC (0.0-0.012) X10*3/uL Nucleated RBC % (auto) (0.0-0.2) /100WBC Smear Tech's Comments PT (11.1-13.3) SEC INR (0.9-1.1) Sodium (135-145) mmol/L Potassium (3.3-5.1) mmol/L Chloride (96-108) mmol/L Carbon Dioxide (22-29) mmol/L Anion Gap (12-20) BUN (9-16) mg/dL Creatinine (0.5-1.4) mg/dL Estim Creat Clear Calc Estimated GFR Random Glucose (60-115) mg/dL Calcium (8.4-10.2) mg/dL Magnesium (1.6-2.6) mg/dL Total Bilirubin (0.0-1.0) mg/dL Direct Bilirubin (0.0-0.5) mg/dL AST (5-31) U/L ALT (0-31) U/L Alkaline Phosphatase (39-117) U/L Ammonia (13-55) umol/L Troponin I High Sens (<3.5-17.0) ng/L Total Protein (6.5-8.0) g/dL Albumin (3.5-5.0) g/dL Lipase (8-78) U/L Salicylates (15-30) mg/dL Acetaminophen 26 (<30) mcg/mL Ethyl Alcohol mg/dL Independent Interpretation I performed an independent interpretation of an: EKG Critical Care Time Critical Care Time Critical Care Time: Yes Total Critical Care Time: 120 Attestation: I have personally provided critical care time. Time includes review of lab data, radiology results, discussion with consultants, and monitoring for potential decompensation. Intervention performed as documented. Discharge Plan Discharge Clinical Impression: Acetaminophen overdose, Suicide attempt Patient Disposition: Still a Patient Prescriptions: No Action ropinirole 1 mg Tablet 1 mg PO BEDTIME Qty: 30 0RF nicotine 14 mg/24 hr Patch 24 Hour 14 mg transdermal DAILY Qty: 30 0RF ipratropium-albuterol 0.5 mg-3 mg(2.5 mg base)/3 mL Solution For Nebulization 3 ml inhalation RQ6H Qty: 90 0RF valacyclovir 1 gram Tablet 1,000 mg PO BID Qty: 30 0RF olanzapine 10 mg Tablet 10 mg PO BEDTIME Qty: 30 0RF clonidine HCl 0.2 mg Tablet 0.2 mg PO BEDTIME Qty: 30 0RF Protocol: Hold for SBP< HOLD for SBP < : 90 albuterol sulfate [Ventolin HFA] 90 mcg/actuation Hfa Aerosol Inhaler 2 puff inhalation Q4H PRN (Reason: shortness of breath or wheezing) Qty: 6.7 0RF Spiriva with HandiHaler 18 mcg Capsule, W/Inhalation Device 18 mcg inhalation RDAILY Qty: 20 0RF ferrous sulfate 324 mg (65 mg iron) Tablet,Delayed Release (Dr/Ec) 324 mg PO DAILY Qty: 30 0RF cyanocobalamin (vitamin B-12) [Vitamin B-12] 100 mcg Tablet 100 mcg PO DAILY Qty: 30 0RF omeprazole 20 mg Capsule,Delayed Release(Dr/Ec) 20 mg PO DAILY@0630 Qty: 30 0RF cholecalciferol (vitamin D3) 25 mcg (1,000 unit) Tablet 25 mcg PO DAILY Qty: 30 0RF gabapentin 600 mg tablet 600 mg PO BEDTIME lithium carbonate 450 mg tablet extended release 1,350 mg PO BEDTIME
[2023-05-27 21:17] VITALS: BP 113/62; PULSE 98; RESP 16; TEMP 37.2; O2SAT 95; BMI 41.5
[2023-05-27] MEDS: 0.9 % Sodium Chloride 1,000 ML 999 ML IVCONT (21:35)
[2023-05-27] MEDS: Activated charcoaL 50 GM/240 ML ORAL.SUSP PO (21:38)
[2023-05-27 22:09] LABS: INTERNATIONAL NORM RATIO 0.9 (0.9-1.1); Prothrombin Time 11.3 SEC (11.1-13.3)
[2023-05-27 22:18] LABS: Alanine Aminotransferase 11 U/L (0-31); Albumin Level 4.1 g/dL (3.5-5.0); Alkaline Phosphatase 65 U/L (39-117); Anion Gap 17 (12-20); Aspartate Amino Transferase 11 U/L (5-31); Bilirubin Direct < 0.2 mg/dL (0.0-0.5); Bilirubin Total 0.2 mg/dL (0.0-1.0); Blood Urea Nitrogen 11 mg/dL (9-16); Calcium 9.5 mg/dL (8.4-10.2); Carbon Dioxide 22 mmol/L (22-29); Chloride 104 mmol/L (96-108); Creatinine Clr Calc Pharmacy 107.7; Estimated Glomerular Filt Rate > 60; Ethanol < 10 mg/dL; Glucose Random 119 mg/dL (60-115); Lipase 17 U/L (8-78); Magnesium 2.1 mg/dL (1.6-2.6); Potassium 4.5 mmol/L (3.3-5.1); Sodium 138 mmol/L (135-145); Total Protein 6.8 g/dL (6.5-8.0)
[2023-05-27 22:25] LABS: Troponin-I High Sensitivity 2.9 ng/L (<3.5-17.0)
[2023-05-27 22:41] LABS: Ammonia 37 umol/L (13-55); Salicylate < 5.0 mg/dL (15-30)
--- NOTE | 2023-05-27 22:52 | PC.NURSE ---
Patient arrived via ems. Police at bedside as well. Section 12 signed as pt reported to have taken 16 500mg Tylenol pills (8,000mg total). PT endorsing SI, stating she has been dealing with a lot of deaths. Poison control called on arrival, recommended INR, LFTs, Aspirin, Tylenol labs. Administer activated charcoal with repeat Tylenol lab draw in 4 hours (1am) and if toxic levels then full course of acetylcysteine. MD aware of recommendations. Will continue to follow plan of care.
[2023-05-27 22:58] LABS: Acetaminophen LAB 64 mcg/mL (<30)
[2023-05-28 00:53] VITALS: BP 110/62; PULSE 84; RESP 18; O2SAT 91
[2023-05-28 01:43] LABS: Acetaminophen LAB 26 mcg/mL (<30)
[2023-05-28 01:51] LABS: Basophils Absolute Auto 0.1 X10*3/uL (0.0-0.2); Basophils Percent Auto 0.9 % (0-2); Eosinophils Absolute Auto 0.1 X10*3/uL (0.0-0.4); Eosinophils Percent Auto 0.8 % (0-4); Hematocrit 42.5 % (37.0-47.0); Hemoglobin 13.1 g/dl (12.0-16.0); Imm Gran Abs Auto 0.04 X10*3/uL (0.00-0.03); Imm Gran Pct Auto 0.4 % (0.0-0.4); Lymphocytes Percent Auto 30.5 % (20-40); MANUAL DIFF FLAG SCAN; Mean Corpuscular HGB Conc 30.8 g/dl (31.0-35.0); Mean Corpuscular Hemoglobin 31.6 pg (27.0-33.0); Mean Corpuscular Volume 102.4 fL (80.0-98.0); Mean Platelet Volume 10.9 fL (9.4-12.3); Monocytes Absolute Auto 0.6 X10*3/uL (0.1-1.2); Neutrophils Absolute Auto 6.1 x10*3/uL (2.0-8.3); Neutrophils Percent Auto 61.4 % (45-73); PLT CLUMP 1; Red Blood Count 4.15 X10*6/uL (4.20-5.50); SCAN SMEAR FLAG 1
[2023-05-28 01:55] LABS: SLIDE REVIEW VERIFIED
--- NOTE | 2023-05-28 02:20 | PC.NURSE ---
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
--- NOTE | 2023-05-28 02:52 | PC.NURSE ---
poison control called and labs reported to [facility] and she states that they are signing off on the case. pt cleared at this time.
[2023-05-28 05:29] LABS: Appearance Urine Clear; Color Urine Yellow; Glucose Urine UA Negative (Negative); Leukocyte Esterase Urine Negative (Negative); Nitrite Urine Negative (Negative); PH 5.5 (5.0-9.0); Urine Blood Negative (Negative); Urine Ketones Negative (Negative); Urine Protein Negative (Neg-Trace)
[2023-05-28 05:47] LABS: Amphetamine Screen Urine Not Detected (Not Detect); Barbiturates, Urine Not Detected (Not Detect); Benzodiazepines Screen Urine Not Detected (Not Detect); Cannabinoid Screen Urine Not Detected (Not Detect); Cocaine Screen Urine POSITIVE (Not Detect); Fentanyl, urine Not Detected (Not Detect); Opiate Screen Urine Not Detected (Not Detect); Phencyclidine Screen Urine Not Detected (Not Detect)
--- NOTE | 2023-05-28 06:15 | PC.NURSE ---
Patient slept through the night, no distress observed/reported, out of bed once for bathroom use and back, needs two assist with ambulation, labs completed/resulted, care consult ordered/pending evaluation, med rec completed/pending provider's apprval, VSS, will continue to monitor.
--- NOTE | 2023-05-28 09:43 | PC.NURSE ---
Asa Pt. Pt would like to be discharged home. Care Team notified.
[2023-05-28 10:27] VITALS: BP 138/94; PULSE 85; RESP 18; TEMP 36.8; O2SAT 98
== END 2023-05-28 11:49 | disposition home or self-care (01) ==
PROVIDERS: Emergency Provider Emergency Medicine
DX: T39.1X2A Poisoning by 4-Aminophenol derivatives, intentional self-harm, initial encounter (principal); R45.851 Suicidal ideations; R94.31 Abnormal electrocardiogram [ECG] [EKG]; Y92.9 Unspecified place or not applicable; F17.210 Nicotine dependence, cigarettes, uncomplicated; Z79.899 Other long term (current) drug therapy; Z71.6 Tobacco abuse counseling
CPT/HCPCS: 36415; 80048; 80076; 80143; 80179; 80307; 81003; 82140; 83690; 83735; 84484; 85025; 85610; 93005; 99285; S9485

== ENCOUNTER → 2023-05-27 21:02 | Outpatient (BNV) | payer MEDICAID, SELFPAY | PROVIDERS: Emergency Provider Emergency Medicine; Visit Provider Internal Medicine Cardiovascular Disease | DX: I45.81 Long QT syndrome (principal) | CPT/HCPCS: 93010 ==

== ENCOUNTER 2023-06-11 09:45 | Inpatient (IN) | payer MEDICAID, SELFPAY ==
[2023-06-11] VITALS (11 sets, daily range): BP systolic 101–140; BP diastolic 59–90; PULSE 77–93; RESP 16–20; TEMP 36.6–37.2; O2SAT 93–96; BMI 44.4
--- NOTE | ~2023-06-11 | XR_ITS ---
EXAMINATION: XR CHEST CLINICAL INFORMATION: Shortness of breath COMPARISON: Previous chest x-ray April 2023 TECHNIQUE: Frontal view of the chest was obtained. FINDINGS: No significant abnormality is noted involving the heart, lungs, mediastinum, bony thorax or soft tissues. XR/XR chest 1V IMPRESSION: Unremarkable examination.
--- NOTE | 2023-06-11 10:02 | PC.NURSE ---
Alert and oriented, arrived from home vi ems after complaints of sob, chest tightness x 2 days. States vomited x 3. Patient spitting up mucus upon arrival. Weezing hear bilt. 94% on 2 liters 02, does not use home 02. patient reporst smoking 5 cigarettes a day . reports 4/10 rib pain from coughing but denies chest pain or headahce.
--- NOTE | 2023-06-11 11:40 | ED_ITS ---
HPI - URI/Sore Throat General Chief Complaint: Upper Respiratory Symptoms Stated Complaint: DIFF BREATHING X 2 DAYS,HX OF COPD/ASTHMA PER EMS Time Seen by Provider: 06/11/23 11:36 Source: patient, EMS, RN notes reviewed and old records reviewed Mode of arrival: EMS Limitations: no limitations History of Present Illness HPI Narrative: 53-year-old female with a past medical history of asthma/COPD, bipolar/ borderli ne personality, depression, substance abuse, intermittent explosive disorder, PTSD, FABIOLA, pseudoseizures, presenting to the ED via EMS complaining of productive cough, SOB, and wheezing x2 days. Admits to using her inhalers and neb treatment at home without relief, denies recent steroid use. Denies fever/chills, pedal edema/calf tenderness, recent travel Related Data Home Medications Medication Instructions Recorded Confirmed gabapentin 600 mg tablet 600 mg PO BEDTIME 04/12/23 06/11/23 lithium carbonate 450 mg 1,350 mg PO BEDTIME 05/14/23 06/11/23 tablet,extended release acetaminophen 500 mg tablet (Pain 1,000 mg PO Q8H PRN Pain 06/11/23 06/11/23 Relief Extra Strength (acetaminophen)) cyanocobalamin (vitamin B-12) 1,000 mcg PO DAILY 06/11/23 06/11/23 1,000 mcg tablet (Vitamin B-12) ipratropium 0.5 mg-albuterol 3 mg 3 ml inhalation RQ6H PRN Shortness 06/11/23 06/11/23 (2.5 mg base)/3 mL nebulization Of Breath Or Wheezing soln valacyclovir 1 gram tablet 1,000 mg PO BID 06/11/23 06/11/23 Previous Rx's Medication Instructions Recorded albuterol sulfate 90 mcg/actuation 2 puff inhalation Q4H PRN 03/22/23 aerosol inhaler (Ventolin HFA) shortness of breath or wheezing #6.7 grams cholecalciferol (vitamin D3) 25 25 mcg PO DAILY #30 tabs 03/22/23 mcg (1,000 unit) tablet clonidine HCl 0.2 mg tablet 0.2 mg PO BEDTIME #30 tabs 03/22/23 ferrous sulfate 324 mg (65 mg 324 mg PO DAILY #30 tabs 03/22/23 iron) tablet,delayed release nicotine 14 mg/24 hr daily 14 mg transdermal DAILY #30 ea 03/22/23 transdermal patch olanzapine 10 mg tablet 10 mg PO BEDTIME #30 tabs 03/22/23 omeprazole 20 mg capsule,delayed 20 mg PO DAILY@0630 #30 caps 03/22/23 release ropinirole 1 mg tablet 1 mg PO BEDTIME #30 tabs 03/22/23 tiotropium bromide 18 mcg capsule 18 mcg inhalation RDAILY #20 03/22/23 with inhalation device (Spiriva inhalations with HandiHaler) Allergies Allergy/AdvReac Type Severity Reaction Status Date / Time aspirin Allergy Mild Anaphylaxis Verified 06/11/23 10:01 ampicillin Allergy Rash Verified 12/26/22 10:32 Penicillins Allergy Anaphylaxis Verified 03/15/23 17:49 latex AdvReac Rash Verified 03/15/23 17:49 Latex, Natural Rubber AdvReac Rash Verified 03/15/23 17:49 seafood AdvReac Stomach Verified 12/26/22 10:32 Upset Sulfa (Sulfonamide AdvReac Hives Verified 03/15/23 17:49 Antibiotics) Review of Systems Review of Systems: Constitutional: No Fever, No Chills, No Fatigue, No Malaise ENT/Mouth: NNo Ear Pain, No Nasal Congestion, No Sinus Pain, No Hoarseness, No sore throat, No Rhinorrhea, No Swallowing Difficulty Eyes: No Eye Pain, No Swelling, No Redness, No Vision Changes Cardiovascular: + Chest Pain, + SOB, No Dyspnea on Exertion, No Orthopnea, No Edema, No Palpitations Respiratory: +Cough, + Sputum, +Wheezing, No Smoke Exposure, No Dyspnea Gastrointestinal: No Nausea, No Vomiting, No Diarrhea, No Constipation, No Abdominal pain Genitourinary: No Dysuria, No Urinary Frequency, No Hematuria Musculoskeletal: No joint pain, No Myalgias, No Joint Swelling Skin: No Skin Lesions, No rash Neuro: No Weakness, No Loss of Consciousness, No Dizziness, No Headache Psych: No Anxiety/Panic, No Depression, No SI/HI/AH/VH, No Social Issues Yes all other systems are reviewed and are negative Constitutional: Constitutional: Reports as per [facility] Past Medical History Attestation statement: The following information was validated with the patient. 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 FABIOLA (obstructive sleep apnea) Post traumatic stress disorder (PTSD) Tobacco use Tobacco use disorder Surgical History History of ankle surgery History of appendectomy History of back surgery Hx of cholecystectomy Family History Family History Mother COPD (chronic obstructive pulmonary disease) Social History Social History Household Members: Unknown / Unable to assess Household Members Other:: Long Term in [place] Housing: Apartment Housing Other:: Sleeps on the couch at [facility] house Do you presently have visiting nurse or other home services: Yes (twice a day) Unable to assess alcohol history related to: Unknown Alcohol intake: never Patient Tobacco Use Status: Current everyday Tobacco user Tobacco use type: Cigarette Cigarette Packs Per Day: 3 Cigarettes Per Day: 10 Years Smoked: 35 Smoked in Last 30 Days: Yes e-Cigarette/Vaping Use: Former Use Second Hand Smoke Exposure: No Use of substances other than those prescribed or required for medical reasons: No Substance Use Type: Crack/Cocaine Advance Directives: Yes Advance Directives on File: Yes Advance Directives Date on File: 06/17/22 service: No Current occupational status: unemployed and disabled Sexual orientation: Straight/Heterosexual Physical Exam Vital Signs: Vital Signs: Last Vital Signs Temp 98.9 F 06/11/23 10:00 Pulse 77 06/11/23 13:50 Resp 16 06/11/23 13:50 BP 110/62 06/11/23 13:37 Pulse Ox 96 06/11/23 13:37 O2 Del Method Nasal Cannula 06/11/23 13:37 O2 Flow Rate 2 06/11/23 13:37 Oxygen Flow Rate 2 06/11/23 10:00 BMI result Body Mass Index 44.4 Const: General: cooperative and no acute distress Orientation/consciousness: patient oriented x3 Limitations: no limitations HEENT: Head: Yes normal to inspection and Yes atraumatic Ears: hearing grossly normal bilaterally General nose exam: Normal external nose present Face and sinus: Yes normal facial exam Eyes: General: appearance normal, both eyes and all related structures EOM: EOMs intact bilaterally Neck: Neck: Yes normal visual inspection and Yes no meningeal signs Resp: Effort & Inspection: normal respiratory effort, audible wheezes and Actively coughing Quality: actively coughing Auscultation: wheezes expiratory wheezes and throughout and diminished lung sounds bilateral in the lower lung carey Cardio: Rate: regular rate Heart sounds: S1 normal heart sound present and S2 normal heart sound present GI: Inspection: Yes normal to inspection Palpation (GI): Soft to palpation, nontender, no guarding and not rigid Skin: Rashes: no rashes Wounds: no wounds Neuro: General: patient oriented x3, tone normal and no meningeal signs Cranial nerves: Yes CN's II-XII intact bilaterally Gait exam (Neuro): Normal gait present Extrem: General: Yes normal to inspection, Yes no pedal edema and Yes no calf tenderness Course Course Course Narrative: -no leukocytosis. Troponin negative. Lactic acid WNL XR chest 1V IMPRESSION: Unremarkable examination. > on re-evaluation after initial DuoNeb and Solu-Medrol patient still with cough and diffuse expiatory wheeze. Additional our long treatment and magnesium ordered. Plan will be for admission Medications Administered Discontinued Medications Generic Name Dose Route Start Last Admin Trade Name Ramoneq PRN Reason Stop Dose Admin Benzonatate 100 mg 06/11/23 11:51 06/11/23 13:08 Benzonatate 100 Mg Capsule PO 06/11/23 11:52 100 mg ONCE ONE Administration Albuterol Sulfate 7.5 mg/ 0 mg 06/11/23 11:51 06/11/23 11:55 Albuterol/Ipratropium 3 ml INHALE 06/11/23 11:52 2.5 each ONCE ONE Administration Albuterol Sulfate 7.5 mg/ 0 mg 06/11/23 13:37 06/11/23 13:49 Albuterol/Ipratropium 3 ml INHALE 06/11/23 13:38 2.5 each ONCE ONE Administration Hydrocodone Bit/Homatropine Methylb 5 ml 06/11/23 11:51 06/11/23 13:08 Hydrocodone/Homat 5/1.5/5 Ml 5 Ml Syrup PO 06/11/23 11:52 5 ml ONCE ONE Administration Azithromycin 500 mg/ Sodium 250 mls @ 125 mls/hr 06/11/23 11:55 06/11/23 13:09 Chloride IV 06/11/23 13:54 125 mls/hr ONCE ONE Administration Methylprednisolone Sodium Succinate 125 mg 06/11/23 11:51 06/11/23 13:08 Methylprednisolone Sod Succ 125 Mg/2 Ml Vial IVPUSH 06/11/23 11:52 125 mg ONCE ONE Administration Medical Decision Making Medical Decision Making MDM Narrative: 53-year-old female with a past medical history of asthma/COPD, bipolar/ b orderline personality, depression, substance abuse, intermittent explosive disorder, PTSD, FABIOLA, pseudoseizures, presenting to the ED via EMS complaining of productive cough, SOB, and wheezing x2 days. On exam patient actively coughing, satting 88% on RA > improved to 93-94% on 2L NC, diffuse expiratory wheeze and diminished lung sounds bibasilarly. Clinical concern for acute on chronic COPD/asthma exacerbation vs pnuemonia vs viral syndrome. Lower suspicion for endocarditis/myocarditis/pericarditis. Unlikely DVT/PE vs ACS/dissection vs pneumothorax. Plan: EKG, labs, CXR, DuoNeb, IV Solu-Medrol, Hycodan/Tessalon Perles, anticipated admission Please refer to course for remaining clinical decision making, interpretation of labs/imaging results, and discussions with consultants and/or family members. Differential Diagnosis Differential Diagnoses: The differential diagnosis associated with the presentation includes As above Admission/Observation Consideration of admission/observation: Escalation of care including admission/observation considered Consult Healthcare Provider Management of the patient was discussed with: Hospitalist Lab Data [facility] Lab Attestation statement: I reviewed the patient's lab results. 06/11/23 12:57 06/11/23 12:49 Labs: Lab Results 06/11/23 06/11/23 06/11/23 Range/Units 12:49 12:49 12:57 WBC 8.3 (4.8-10.8) X10*3/uL RBC 4.74 (4.20-5.50) X10*6/uL Hgb 15.1 (12.0-16.0) g/dl Hct 47.7 H (37.0-47.0) % MCV 100.6 H (80.0-98.0) fL MCH 31.9 (27.0-33.0) pg MCHC 31.7 (31.0-35.0) g/dl RDW 12.4 (11.0-16.0) % Plt Count 275 (160-400) X10*3/uL MPV 9.8 (9.4-12.3) fL Immature Gran % (Auto) 0.2 (0.0-0.4) % Neut % (Auto) 57.4 (45-73) % Lymph % (Auto) 35.8 (20-40) % Richardson % (Auto) 4.7 (2-11) % Eos % (Auto) 1.1 (0-4) % Baso % (Auto) 0.8 (0-2) % Lymph # (Auto) 3.0 (1.2-4.9) X10*3/uL Richardson # (Auto) 0.4 (0.1-1.2) X10*3/uL Eos # (Auto) 0.1 (0.0-0.4) X10*3/uL Baso # (Auto) 0.1 (0.0-0.2) X10*3/uL Abs Immat Gran (auto) 0.02 (0.00-0.03) X10*3/uL Absolute Neuts (auto) 4.7 (2.0-8.3) x10*3/uL Absolute Nucleated RBC 0.000 (0.0-0.012) X10*3/uL Nucleated RBC % (auto) 0.0 (0.0-0.2) /100WBC PT 10.7 L (11.1-13.3) SEC INR 0.9 (0.9-1.1) Sodium (135-145) mmol/L Potassium (3.3-5.1) mmol/L Chloride (96-108) mmol/L Carbon Dioxide (22-29) mmol/L Anion Gap (12-20) BUN (9-16) mg/dL Creatinine (0.5-1.4) mg/dL Estim Creat Clear Calc Estimated GFR Random Glucose (60-115) mg/dL Lactic Acid (0.5-2.0) mmol/L Calcium (8.4-10.2) mg/dL Magnesium (1.6-2.6) mg/dL Total Bilirubin (0.0-1.0) mg/dL Direct Bilirubin (0.0-0.5) mg/dL AST (5-31) U/L ALT (0-31) U/L Alkaline Phosphatase (39-117) U/L Troponin I High Sens (<3.5-17.0) ng/L B-Natriuretic Peptide (<100) pg/mL Total Protein (6.5-8.0) g/dL Albumin (3.5-5.0) g/dL Influenza Type A (PCR) NEGATIVE (Negative) Influenza Type B (PCR) NEGATIVE (Negative) RSV RNA Qual (PCR) NEGATIVE (Negative) SARS-CoV-2 RNA (RT-PCR) NEGATIVE (Negative) 06/11/23 06/11/23 06/11/23 Range/Units 12:57 12:57 12:57 WBC (4.8-10.8) X10*3/uL RBC (4.20-5.50) X10*6/uL Hgb (12.0-16.0) g/dl Hct (37.0-47.0) % MCV (80.0-98.0) fL MCH (27.0-33.0) pg MCHC (31.0-35.0) g/dl RDW (11.0-16.0) % Plt Count (160-400) X10*3/uL MPV (9.4-12.3) fL Immature Gran % (Auto) (0.0-0.4) % Neut % (Auto) (45-73) % Lymph % (Auto) (20-40) % Richardson % (Auto) (2-11) % Eos % (Auto) (0-4) % Baso % (Auto) (0-2) % Lymph # (Auto) (1.2-4.9) X10*3/uL Richardson # (Auto) (0.1-1.2) X10*3/uL Eos # (Auto) (0.0-0.4) X10*3/uL Baso # (Auto) (0.0-0.2) X10*3/uL Abs Immat Gran (auto) (0.00-0.03) X10*3/uL Absolute Neuts (auto) (2.0-8.3) x10*3/uL Absolute Nucleated RBC (0.0-0.012) X10*3/uL Nucleated RBC % (auto) (0.0-0.2) /100WBC PT (11.1-13.3) SEC INR (0.9-1.1) Sodium (135-145) mmol/L Potassium (3.3-5.1) mmol/L Chloride (96-108) mmol/L Carbon Dioxide (22-29) mmol/L Anion Gap (12-20) BUN (9-16) mg/dL Creatinine (0.5-1.4) mg/dL Estim Creat Clear Calc Estimated GFR Random Glucose (60-115) mg/dL Lactic Acid 1.4 (0.5-2.0) mmol/L Calcium (8.4-10.2) mg/dL Magnesium (1.6-2.6) mg/dL Total Bilirubin (0.0-1.0) mg/dL Direct Bilirubin (0.0-0.5) mg/dL AST (5-31) U/L ALT (0-31) U/L Alkaline Phosphatase (39-117) U/L Troponin I High Sens < 2.7 (<3.5-17.0) ng/L B-Natriuretic Peptide 76 (<100) pg/mL Total Protein (6.5-8.0) g/dL Albumin (3.5-5.0) g/dL Influenza Type A (PCR) (Negative) Influenza Type B (PCR) (Negative) RSV RNA Qual (PCR) (Negative) SARS-CoV-2 RNA (RT-PCR) (Negative) 06/11/23 Range/Units 13:57 WBC (4.8-10.8) X10*3/uL RBC (4.20-5.50) X10*6/uL Hgb (12.0-16.0) g/dl Hct (37.0-47.0) % MCV (80.0-98.0) fL MCH (27.0-33.0) pg MCHC (31.0-35.0) g/dl RDW (11.0-16.0) % Plt Count (160-400) X10*3/uL MPV (9.4-12.3) fL Immature Gran % (Auto) (0.0-0.4) % Neut % (Auto) (45-73) % Lymph % (Auto) (20-40) % Richardson % (Auto) (2-11) % Eos % (Auto) (0-4) % Baso % (Auto) (0-2) % Lymph # (Auto) (1.2-4.9) X10*3/uL Richardson # (Auto) (0.1-1.2) X10*3/uL Eos # (Auto) (0.0-0.4) X10*3/uL Baso # (Auto) (0.0-0.2) X10*3/uL Abs Immat Gran (auto) (0.00-0.03) X10*3/uL Absolute Neuts (auto) (2.0-8.3) x10*3/uL Absolute Nucleated RBC (0.0-0.012) X10*3/uL Nucleated RBC % (auto) (0.0-0.2) /100WBC PT (11.1-13.3) SEC INR (0.9-1.1) Sodium 142 (135-145) mmol/L Potassium 4.3 (3.3-5.1) mmol/L Chloride 105 (96-108) mmol/L Carbon Dioxide 28 (22-29) mmol/L Anion Gap 17 (12-20) BUN 12 (9-16) mg/dL Creatinine 0.62 (0.5-1.4) mg/dL Estim Creat Clear Calc 138.5 Estimated GFR > 60 Random Glucose 115 (60-115) mg/dL Lactic Acid (0.5-2.0) mmol/L Calcium 9.4 (8.4-10.2) mg/dL Magnesium 2.0 (1.6-2.6) mg/dL Total Bilirubin 0.2 (0.0-1.0) mg/dL Direct Bilirubin < 0.2 (0.0-0.5) mg/dL AST 12 (5-31) U/L ALT 11 (0-31) U/L Alkaline Phosphatase 66 (39-117) U/L Troponin I High Sens (<3.5-17.0) ng/L B-Natriuretic Peptide (<100) pg/mL Total Protein 6.7 (6.5-8.0) g/dL Albumin 4.1 (3.5-5.0) g/dL Influenza Type A (PCR) (Negative) Influenza Type B (PCR) (Negative) RSV RNA Qual (PCR) (Negative) SARS-CoV-2 RNA (RT-PCR) (Negative) Independent Interpretation I performed an independent interpretation of an: EKG Radiology Impression Discussion of test interpretation with radiology: I have reviewed the radiologist's reading. Independent Historian Clinical information obtained from an independent historian. History obtained from or confirmed by: EMS External Record Review External record reviewed: Inpatient record, Office record, Outpatient record, Prior outpatient labs, Prior outpatient radiology, Primary care record and Outside ED record Tests considered The following testing was considered but not selected: As above Prescription Management I considered prescription management with: Antibiotic Chronic Conditions Patient?s care impacted by: Other (Asthma/COPD) Social Determinants Patient?s care significantly limited by Social Determinants of Health including: Other Social Determinant of Health Critical Care Time Critical Care Time Critical Care Time: Yes Total Critical Care Time: 45 Attestation: I have personally provided critical care time exclusive of time spent on separately billable procedures. Time includes review of lab data, radiology results, discussion with consultants, and monitoring for potential decompensation. Intervention performed as documented. Discharge Plan Discharge Clinical Impression: Asthma exacerbation in COPD, Hypoxia Patient Disposition: Admitted As Inpatient
--- NOTE | 2023-06-11 11:51 | ECG_ITS ---
Test Reason : SOB Blood Pressure : / mmHG Vent. Rate : 085 BPM Atrial Rate : 085 BPM P-R Int : 140 ms QRS Dur : 082 ms QT Int : 380 ms P-R-T Axes : 029 011 017 degrees QTc Int : 452 ms Normal sinus rhythm Nonspecific T wave abnormality Abnormal ECG When compared with ECG of 27-MAY-2023 21:12, No significant change was found Referred By: Arina Lowe Electronically Signed By:Deangelo Gutierres
[2023-06-11] MEDS: Albuterol Sulfate 7.5 MG, Albuterol/Iprat 2.5/0.5MG 3 ML 3 ML INHALE ×2 (11:55→13:49)
[2023-06-11 13:02] LABS: MANUAL DIFF FLAG NO
[2023-06-11 13:04] LABS: Basophils Absolute Auto 0.1 X10*3/uL (0.0-0.2); Basophils Percent Auto 0.8 % (0-2); Eosinophils Absolute Auto 0.1 X10*3/uL (0.0-0.4); Eosinophils Percent Auto 1.1 % (0-4); Hematocrit 47.7 % (37.0-47.0); Hemoglobin 15.1 g/dl (12.0-16.0); Imm Gran Abs Auto 0.02 X10*3/uL (0.00-0.03); Imm Gran Pct Auto 0.2 % (0.0-0.4); Lymphocytes Percent Auto 35.8 % (20-40); Mean Corpuscular HGB Conc 31.7 g/dl (31.0-35.0); Mean Corpuscular Hemoglobin 31.9 pg (27.0-33.0); Mean Corpuscular Volume 100.6 fL (80.0-98.0); Mean Platelet Volume 9.8 fL (9.4-12.3); Monocytes Absolute Auto 0.4 X10*3/uL (0.1-1.2); Monocytes Percent Auto 4.7 % (2-11); Neutrophils Absolute Auto 4.7 x10*3/uL (2.0-8.3); Neutrophils Percent Auto 57.4 % (45-73); Platelet Count 275 X10*3/uL (160-400); Red Blood Count 4.74 X10*6/uL (4.20-5.50); Red Cell Distribution Width 12.4 % (11.0-16.0); White Blood Count 8.3 X10*3/uL (4.8-10.8)
[2023-06-11] MEDS: methylPREDNISolone Sod Succ 125 MG/2 ML VIAL IVPUSH (13:08)
[2023-06-11] MEDS: Benzonatate 100 MG CAPSULE PO (13:08)
[2023-06-11] MEDS: HYDROcodone/Homat 5/1.5/5 ML 5 ML SYRUP PO (13:08)
[2023-06-11] MEDS: Azithromycin 500 MG in 0.9 % Sodium Chloride 250 ML 125 MG IV (13:09)
[2023-06-11 13:11] LABS: INTERNATIONAL NORM RATIO 0.9 (0.9-1.1); Prothrombin Time 10.7 SEC (11.1-13.3)
--- NOTE | 2023-06-11 13:18 | PC.NURSE ---
pt a&ox4, O2 @ 88% on RA, improved to 94% on 2L NC, other vss. increased resp effort noted with audible wheezing. 20G IV placed R AC, labs obtained, delay in starting abx r/t pt difficult blood draw. cultures obtained. medicated per DEC. pt pending CXR, no new orders at this time.
[2023-06-11 13:42] LABS: Lactic Acid 1.4 mmol/L (0.5-2.0)
--- NOTE | 2023-06-11 13:46 | PHA.MEDREC ---
Addendum entered by Eren Dawson 06/11/23 13:54: Patient states they are on nystatin suspension from [facility]. Cannot confirm at this moment since [facility] is closed for weekend. Pharmacy will follow up. Original Note: Pharmacy Consult ? Medication Reconciliation Pharmacy has completed the medication reconciliation. Spoke to patient to confirm meds.
[2023-06-11 13:48] LABS: Influenza A PCR NEGATIVE (Negative); Influenza B PCR NEGATIVE (Negative); Resp Syncy Virus RNA Qual PCR NEGATIVE (Negative); SARS COV2 PCR INHOUSE NEGATIVE (Negative)
[2023-06-11 13:54] LABS: Troponin-I High Sensitivity < 2.7 ng/L (<3.5-17.0)
[2023-06-11 13:56] LABS: B Type Natriuretic Peptide 76 pg/mL (<100)
[2023-06-11 14:31] LABS: Anion Gap 17 (12-20)
[2023-06-11 14:44] LABS: Alanine Aminotransferase 11 U/L (0-31); Albumin Level 4.1 g/dL (3.5-5.0); Alkaline Phosphatase 66 U/L (39-117); Aspartate Amino Transferase 12 U/L (5-31); Bilirubin Direct < 0.2 mg/dL (0.0-0.5); Bilirubin Total 0.2 mg/dL (0.0-1.0); Blood Urea Nitrogen 12 mg/dL (9-16); Calcium 9.4 mg/dL (8.4-10.2); Carbon Dioxide 28 mmol/L (22-29); Chloride 105 mmol/L (96-108); Creatinine Clr Calc Pharmacy 138.5; Estimated Glomerular Filt Rate > 60; Glucose Random 115 mg/dL (60-115); Potassium 4.3 mmol/L (3.3-5.1); Sodium 142 mmol/L (135-145); Total Protein 6.7 g/dL (6.5-8.0)
--- NOTE | 2023-06-11 15:14 | P.HPHOSP_ITS ---
the patient was seen and evaluated with LASHONDA Nguyen. I agree with his note, assessment and plan with the following. In summary, A 53 years old lady with PMH of COPD, OA, polysubstance abuse, bipolar among others who presents with SOB , wheezing. found to be hypoxic. Acute hypoxic respiratory failure 2/2 COPD exacerbation Solu-Medrol IV 40 mg q.12 DuoNebs Azithromycin PO wean O2 down as tolerated Rest of evaluations by PA note. History of Present Illness Date of Service: 06/11/23 Attending physician on admission: Maninder Jett Chief Complaint: SOB, wheezing Pt is a 53-year-old female with a PMH significant for COPD/asthma not on home O2, fibromyalgia,?osteoarthritis, hx of recurrent UTI, polysubstance abuse, borderline personality disorder, bipolar disorder, and anxiety who presents to the ED with?increasing shortness of breath with exertion for the past 3-4 days. Also been experiencing persistent cough productive of whitish sputum. Patient reports chills but no fever, vomiting with p.o. intake for the past 2 days. She also states she has been having diffuse lower abdominal pain associated with coughing and vomiting. Patient has been using her inhalers multiple times a day to no effect. Denies chest pain/pressure, palpitations. Patient presents today due to her worsening shortness of breath is not alleviated by her home medications. Of note, patient desatted to 88% O2 when luminal oxygen was removed. She is well known to the facility with multiple hospital and psychiatric admissions. She continues to smoke between 5 and 6 cigarettes a day. In the ED pt was afebrile with BP little soft at 101/59 satting 93% oxygen 2 L NC. Labs were grossly unremarkable. No leukocytosis. Stable H&H. Electrolytes WNL. Renal function, hepatic function at baseline. Troponin negative. BNP WNL at 76. CXR showed no acute cardiopulmonary process. EKG demonstrated normal sinus rhythm with T-wave abnormality but evidence of ST elevations or de pressions. Pt was treated with DuoNebs, Solu-Medrol, hydrocodone/homatropine, benzonatate, azithromycin, and magnesium sulfate. Pt will be admitted to the hospital for acute hypoxic respiratory failure in the setting of COPD/asthma exacerbation. Review of Systems Review of Systems: Shortness of breath Productive cough Nausea, vomiting Abdominal pain associated with cough and vomiting Chills No fever Denies chest pain/pressure, palpitations Yes all other systems are reviewed and are negative [facility] Medical History Asthma exacerbation in COPD Asthma-COPD overlap syndrome Bipolar disorder Bipolar I disorder Borderline personality disorder Chronic lung disease COPD (chronic obstructive pulmonary disease) COPD (chronic obstructive pulmonary disease) Depression Drug abuse Herpes Intermittent explosive disorder 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 FABIOLA (obstructive sleep apnea) Post traumatic stress disorder (PTSD) Tobacco use Tobacco use disorder Family History Mother COPD (chronic obstructive pulmonary disease) Surgical History History of ankle surgery History of appendectomy History of back surgery Hx of cholecystectomy Social History Household Members: Unknown / Unable to assess Household Members Other:: [facility] in [place] Housing: Apartment Housing Other:: Sleeps on the couch at [facility] house Do you presently have visiting nurse or other home services: Yes (twice a day) Unable to assess alcohol history related to: Unknown Alcohol intake: never Patient Tobacco Use Status: Never used Tobacco Tobacco use type: Cigarette Cigarette Packs Per Day: 3 Cigarettes Per Day: 10 Years Smoked: 35 Smoked in Last 30 Days: Yes e-Cigarette/Vaping Use: Former Use Second Hand Smoke Exposure: No Use of substances other than those prescribed or required for medical reasons: No Substance Use Type: Crack/Cocaine Advance Directives: Yes Advance Directives on File: Yes Advance Directives Date on File: 06/17/22 Nutrition Risks: No Nutritional Risk service: No Current occupational status: unemployed and disabled Sexual orientation: Straight/Heterosexual Meds Allergies Allergy/AdvReac Type Severity Reaction Status Date / Time aspirin Allergy Mild Anaphylaxis Verified 06/11/23 10:01 ampicillin Allergy Rash Verified 12/26/22 10:32 Penicillins Allergy Anaphylaxis Verified 03/15/23 17:49 latex AdvReac Rash Verified 03/15/23 17:49 Latex, Natural Rubber AdvReac Rash Verified 03/15/23 17:49 seafood AdvReac Stomach Verified 12/26/22 10:32 Upset Sulfa (Sulfonamide AdvReac Hives Verified 03/15/23 17:49 Antibiotics) Active Medications: Current Medications Magnesium Sulfate (Magnesium Sulfate/H2o) 2 gm in 50 mls @ 25 mls/hr IV ONCE ONE Stop: 06/11/23 15:36 Home Medications Medication Instructions Recorded Confirmed Last Taken Type gabapentin 600 mg tablet 600 mg PO BEDTIME 04/12/23 06/11/23 06/10/23 History lithium carbonate 450 mg 1,350 mg PO BEDTIME 05/14/23 06/11/23 06/10/23 History tablet,extended release acetaminophen 500 mg tablet (Pain 1,000 mg PO Q8H PRN Pain 06/11/23 06/11/23 Unknown History Relief Extra Strength (acetaminophen)) cyanocobalamin (vitamin B-12) 1,000 mcg PO DAILY 06/11/23 06/11/23 06/11/23 09:00 History 1,000 mcg tablet (Vitamin B-12) ipratropium 0.5 mg-albuterol 3 mg 3 ml inhalation RQ6H PRN Shortness 06/11/23 06/11/23 Unknown History (2.5 mg base)/3 mL nebulization Of Breath Or Wheezing soln valacyclovir 1 gram tablet 1,000 mg PO BID 06/11/23 06/11/23 06/11/23 09:00 History Physical Exam Vital Signs and Narrative: Vital Signs: Last Vital Signs Temp 98.9 F 06/11/23 10:00 Pulse 77 06/11/23 13:50 Resp 16 06/11/23 13:50 BP 110/62 06/11/23 13:37 Pulse Ox 96 06/11/23 13:37 O2 Del Method Nasal Cannula 06/11/23 13:37 O2 Flow Rate 2 06/11/23 13:37 Oxygen Flow Rate 2 06/11/23 10:00 BMI result Body Mass Index 44.4 Constitutional: Alert, in no acute distress. Mental Status: Oriented to person, place and time. Eyes: Pupils are equal, round, and reactive to light. Ear, Nose, and Throat: Oropharynx clear, mucous membranes moist. Ears and nose without deformities. Trachea midline. Respiratory: Diffuse wheezing with rhonchi at bases bilaterally. Cardiovascular: S1, S2 regular. No murmurs, rubs, or gallops. Gastrointestinal: Abdomen soft, non-tender, obsese. Normal bowel sounds. Neurologic: Cranial nerves II-XII are grossly intact bilaterally. No focal neurological deficits. Moves all extremities spontaneously. Skin: No rashes or lesions noted. Musculoskeletal: No cyanosis or clubbing. Extremities: 1+ pitting edema bilaterally. Psychiatric: Normal mood and affect. Results Labs 06/11/23 12:57 06/11/23 13:57 Labs: Laboratory Results - last 24 hr 06/11/23 06/11/23 06/11/23 12:49 12:49 12:57 MCV 100.6 H MCH 31.9 MCHC 31.7 RDW 12.4 Plt Count 275 MPV 9.8 Immature Gran % (Auto) 0.2 Neut % (Auto) 57.4 Lymph % (Auto) 35.8 [place] % (Auto) 4.7 Eos % (Auto) 1.1 Baso % (Auto) 0.8 Lymph # (Auto) 3.0 [place] # (Auto) 0.4 Eos # (Auto) 0.1 Baso # (Auto) 0.1 Abs Immat Gran (auto) 0.02 Absolute Neuts (auto) 4.7 Absolute Nucleated RBC 0.000 Nucleated RBC % (auto) 0.0 PT 10.7 L INR 0.9 Anion Gap Estim Creat Clear Calc Estimated GFR Random Glucose Lactic Acid Calcium Magnesium Total Bilirubin Direct Bilirubin AST ALT Alkaline Phosphatase B-Natriuretic Peptide Total Protein Albumin Influenza Type A (PCR) NEGATIVE Influenza Type B (PCR) NEGATIVE RSV RNA Qual (PCR) NEGATIVE SARS-CoV-2 RNA (RT-PCR) NEGATIVE 06/11/23 06/11/23 06/11/23 12:57 12:57 13:57 MCV MCH MCHC RDW Plt Count MPV Immature Gran % (Auto) Neut % (Auto) Lymph % (Auto) [place] % (Auto) Eos % (Auto) Baso % (Auto) Lymph # (Auto) [place] # (Auto) Eos # (Auto) Baso # (Auto) Abs Immat Gran (auto) Absolute Neuts (auto) Absolute Nucleated RBC Nucleated RBC % (auto) PT INR Anion Gap 17 Estim Creat Clear Calc 138.5 Estimated GFR > 60 Random Glucose 115 Lactic Acid 1.4 Calcium 9.4 Magnesium 2.0 Total Bilirubin 0.2 Direct Bilirubin < 0.2 AST 12 ALT 11 Alkaline Phosphatase 66 B-Natriuretic Peptide 76 Total Protein 6.7 Albumin 4.1 Influenza Type A (PCR) Influenza Type B (PCR) RSV RNA Qual (PCR) SARS-CoV-2 RNA (RT-PCR) Imaging Radiologist's Impressions: Impressions Chest X-Ray 06/11/23 13:36 IMPRESSION: Unremarkable examination. Assessment and Plan (1) Asthma exacerbation in COPD: Status: Acute Plan Pt is a 53-year-old female with a PMH significant for COPD/asthma not on home O2, fibromyalgia,?osteoarthritis, hx of recurrent UTI, polysubstance abuse, borderline personality disorder, bipolar disorder, and anxiety who presents to the ED with?increasing shortness of breath with exertion for the past 3-4 days. Pt will be admitted to the hospital for acute hypoxic respiratory failure in the setting of COPD/asthma exacerbation. Acute hypoxic respiratory failure in the setting of asthma/COPD exacerbation Patient with increasing SOB x3 days, wheezing and rhonchi on examination, desatted to 88% O2 on RA Solu-Medrol IV 40 mg q.12 DuoNebs Q4 Benzonatate and guaifenesin for cough Titrate supplemental O2 >92, wean as tolerated Azithromycin 500mg qd, started 06/11/2023 Patient does not meet sepsis criteria Continue home inhalers Pulmonology consult Monitor respiratory status GERD Continue PPI Nicotine dependence Continue home NRT Smoking cessation consult Obesity class 3 Weight loss encouraged Mood disorder Continue home meds Full Code Attending:?Dr. Herman DVT Prophylaxis: Lovenox Pt will require a hospitalization of at least two nights for treatment of?acute hypoxic respiratory failure in setting of asthma/COPD exacerbation with IV steroids, breathing treatments, and supplemental oxygen. Time Spent With Patient Time: Total time managing care of this patient today ____ minutes. Quality Stroke Does the patient have a stroke diagnosis?: No VTE Prior VTE?: No VTE Risk Level:: Medical - moderate - high VTE Device Contraindication: Treatment Not Indicated VTE Drug Contraindication: N/A - Med Ordered
[2023-06-11] MEDS: Magnesium Sulfate/H2O 2 GM/50 ML PIGGYBACK IV (15:40)
[2023-06-11] MEDS: Enoxaparin Sodium 40 MG/0.4 ML SYRINGE SUBCUT (17:36)
--- NOTE | 2023-06-11 19:53 | MHC.EDTECH ---
This tech assumed care of patient at 1900, vitals were taken and within normal limits,patient is resting comfortably and call castillo within reach.
--- NOTE | 2023-06-11 20:02 | MHC.EDTECH ---
Patient got up to commode with no assistance,patient urinated and patient is back in bed.
[2023-06-11] MEDS: Albuterol/Iprat 2.5/0.5MG 3 ML AMPUL.NEB INHALE (20:27)
[2023-06-11] MEDS: Gabapentin 600 MG TABLET PO (21:53)
[2023-06-11] MEDS: cloNIDine HCL 0.2 MG TABLET PO (21:53)
[2023-06-11] MEDS: OLANZapine 10 MG TABLET PO (21:53)
[2023-06-11] MEDS: Lithium Carbonate ER 450 MG TABLET.ER 1350 MG PO (21:53)
[2023-06-11] MEDS: Acetaminophen 325 MG TABLET 650 MG PO (21:54)
[2023-06-11] MEDS: valACYclovir HCL 1,000 MG TABLET 1000 MG PO (21:54)
[2023-06-11] MEDS: guaiFENesin DM 200/20/10 ML 10 ML SYRUP PO (21:54)
--- NOTE | 2023-06-11 21:58 | MHC.EDTECH ---
Hourly rounds completed and patient got up to commode with no assistance,patient t is back into bed and is resting comfortably at this time. call castillo within reach
[2023-06-11] MEDS: 0.9 % Sodium Chloride Flush 3 ML SYRINGE IVFLUSH (21:59)
[2023-06-11] MEDS: rOPINIRole HCL 1 MG TABLET PO (22:18)
[2023-06-12] VITALS (11 sets, daily range): BP systolic 112–135; BP diastolic 61–73; PULSE 64–90; RESP 12–20; TEMP 36–36.8; O2SAT 93–95
[2023-06-12] MEDS: methylPREDNISolone Sod Succ 40 MG/ML VIAL IVPUSH ×2 (00:54→14:49)
[2023-06-12 05:18] LABS: Amphetamine Screen Urine Not Detected (Not Detect); Barbiturates, Urine Not Detected (Not Detect); Benzodiazepines Screen Urine Not Detected (Not Detect); Cannabinoid Screen Urine Not Detected (Not Detect); Cocaine Screen Urine Not Detected (Not Detect); Fentanyl, urine Not Detected (Not Detect); Opiate Screen Urine Not Detected (Not Detect); Phencyclidine Screen Urine Not Detected (Not Detect)
[2023-06-12] MEDS: Omeprazole 20 MG CAPSULE.DR PO (05:38)
--- NOTE | 2023-06-12 06:34 | PC.NURSE ---
Pt seen in ED overflow, awaiting bed assignment. Assumed care of patient at 00:15, 06/12. VSS. Pt is A&Ox4. +pp/cms. On HS cpap when contract writer assumed care; pt placed on nc this morning when pt refused to wear cpap for anything longer. Scheduled solumendrol given. Breathing is even and unlabored without distress. Denies chest pain or trouble breathing. Does have +dry smoker's cough , per pt. Bed alarm on and safety measures in place.
[2023-06-12 09:00] LABS: Venous Blood Gas Refer to POC result
[2023-06-12 09:01] LABS: VBG Base Excess 5.4 mmol/L; VBG HCO3 32 mmol/L (22-26); VBG pCO2 58 mmHg; VBG pH 7.35 (7.32-7.43); VBG pO2 93 mmHg
[2023-06-12] MEDS: valACYclovir HCL 1,000 MG TABLET 1000 MG PO ×2 (09:17→20:00)
[2023-06-12] MEDS: Nicotine 14 MG PATCH.TD24 TRANSDERMA (09:18)
[2023-06-12] MEDS: Azithromycin 250 MG TABLET PO (09:18)
[2023-06-12] MEDS: Ferrous Sulfate 324 MG TABLET.DR PO (09:18)
[2023-06-12] MEDS: Cyanocobalamin (Vitamin B-12) 1,000 MCG TABLET 1000 MCG PO (09:18)
[2023-06-12] MEDS: Cholecalciferol (Vitamin D3) 25 MCG TABLET PO (09:18)
[2023-06-12] MEDS: 0.9 % Sodium Chloride Flush 3 ML SYRINGE IVFLUSH ×2 (09:23→14:55)
[2023-06-12 10:11] LABS: Lithium 0.71 mmol/L (0.60-1.20)
--- NOTE | 2023-06-12 10:39 | PM.CNPUL ---
History of Present Illness History of Present Illness Consult date: 06/12/23 Chief complaint: Asthma/COPD exacerbation Narrative: 53-year-old lady active 40+ pack-year smoker, with underlying asthma/COPD FABIOLA on CPAP, followed by coiled tubing supervisor in [facility] hospitalized on 06/11/2023 for dyspnea on exertion of a 3-4 days. On ER evaluation patient with hypoxemia requiring supplemental oxygen at 2L started on empiric treatment for COPD exacerbation. Today patient reports significant improvement in her symptoms with resolution of productive cough and improvement in dyspnea. Review of Systems Constitutional: Constitutional: Denies daytime sleepiness, Denies excessive sweating, Denies fatigue, Denies fever(s), Denies lethargy, Denies malaise, Denies night sweats, Denies snoring and Denies weight loss Eyes: Eyes: Denies blurry vision and Denies itchy eyes ENT: Denies nasal congestion, Denies post nasal drip, Denies sinus pain, Denies sinus pressure and Denies other ( Thrush) Cardiovascular: Cardiovascular: Denies chest pain, Denies pedal edema, Denies dyspnea, Denies orthopnea and Denies paroxysmal nocturnal dyspnea Respiratory: Respiratory: Denies cough, Denies hemoptysis, Denies excessive phlegm production, Denies dyspnea, Denies snoring and Denies wheezing Gastrointestinal: Gastrointestinal: Denies abdominal pain and Denies heartburn Musculoskeletal: Musculoskeletal: Denies myalgias, Denies arthralgias and Denies joint swelling Integumentary/Breasts: Skin/Breast: Denies rash Neurologic: Denies memory loss and Denies seizure-like activity Psychiatric: Psychiatric: Denies abnormal sleep pattern, Denies anxiety and Denies memory loss Endocrine: Endocrine: Denies excessive sweating, Denies fatigue and Denies heat intolerance Hematologic/Lymphatic: Hematologic/Lymphatic: Denies easy bruising Allergic/Immunologic: Allergic/Immunologic: Denies itchy eyes, Denies seasonal rhinorrhea and Denies wheezing PMFSH Past Medical History Medical History Asthma exacerbation in COPD Asthma-COPD overlap syndrome Bipolar disorder Bipolar I disorder Borderline personality disorder Chronic lung disease COPD (chronic obstructive pulmonary disease) COPD (chronic obstructive pulmonary disease) Depression Drug abuse Herpes Intermittent explosive disorder 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 FABIOLA (obstructive sleep apnea) Post traumatic stress disorder (PTSD) Tobacco use Tobacco use disorder Family History Family History Mother COPD (chronic obstructive pulmonary disease) Surgical History Surgical History History of ankle surgery History of appendectomy History of back surgery Hx of cholecystectomy Social History Social History Household Members: Unknown / Unable to assess Household Members Other:: Assisted in [place] Housing: Apartment Housing Other:: Sleeps on the couch at [facility] house Do you presently have visiting nurse or other home services: Yes (twice a day) Unable to assess alcohol history related to: Unknown Alcohol intake: never Patient Tobacco Use Status: Never used Tobacco Tobacco use type: Cigarette Cigarette Packs Per Day: 3 Cigarettes Per Day: 10 Years Smoked: 35 Smoked in Last 30 Days: Yes e-Cigarette/Vaping Use: Former Use Second Hand Smoke Exposure: No Use of substances other than those prescribed or required for medical reasons: No Substance Use Type: Crack/Cocaine Advance Directives: Yes Advance Directives on File: Yes Advance Directives Date on File: 06/17/22 Nutrition Risks: No Nutritional Risk service: No Current occupational status: unemployed and disabled Sexual orientation: Straight/Heterosexual Meds Allergies Allergy/AdvReac Type Severity Reaction Status Date / Time aspirin Allergy Mild Anaphylaxis Verified 06/11/23 10:01 ampicillin Allergy Rash Verified 12/26/22 10:32 Penicillins Allergy Anaphylaxis Verified 03/15/23 17:49 latex AdvReac Rash Verified 03/15/23 17:49 Latex, Natural Rubber AdvReac Rash Verified 03/15/23 17:49 seafood AdvReac Stomach Verified 12/26/22 10:32 Upset Sulfa (Sulfonamide AdvReac Hives Verified 03/15/23 17:49 Antibiotics) Active Medications: Current Medications Acetaminophen (Acetaminophen 325 Mg Tablet) 650 mg PO Q6H PRN PRN Reason: Pain, Mild (Pain Scale 1-3) Last Admin: 06/11/23 21:54 Dose: 650 mg Albuterol Sulfate (Albuterol Sulfate 90 Mcg 8 Gm Inhaler) 2 puff INHALE Q4H PRN PRN Reason: shortness of breath or wheezing Albuterol/Ipratropium (Albuterol/Iprat 2.5/0.5mg 3 Ml Ampul.Neb) 3 ml INHALE RQ4H WHILE AWAKE [facility] Last Admin: 06/12/23 08:02 Dose: Not Given Albuterol/Ipratropium (Albuterol/Iprat 2.5/0.5mg 3 Ml Ampul.Neb) 3 ml INHALE RQ6H PRN PRN Reason: Shortness Of Breath Or Wheezing Azithromycin (Azithromycin 250 Mg Tablet) 250 mg PO Q24H [facility] Last Admin: 06/12/23 09:18 Dose: 250 mg Benzonatate (Benzonatate 100 Mg Capsule) 100 mg PO TID PRN PRN Reason: Cough Clonidine HCl (Clonidine Hcl 0.2 Mg Tablet) 0.2 mg PO BEDTIME [facility]; Protocol Last Admin: 06/11/23 21:53 Dose: 0.2 mg Cyanocobalamin (Cyanocobalamin (Vitamin B-12) 1,000 Mcg Tablet) 1,000 mcg PO DAILY [facility] Last Admin: 06/12/23 09:18 Dose: 1,000 mcg Docusate Sodium (Docusate Sodium 100 Mg Capsule) 100 mg PO DAILY PRN PRN Reason: Constipation Enoxaparin Sodium (Enoxaparin Sodium 40 Mg/0.4 Ml Syringe) 40 mg SUBCUT Q24H [facility] Last Admin: 06/11/23 17:36 Dose: 40 mg Ferrous Sulfate (Ferrous Sulfate 324 Mg Tablet.Dr) 324 mg PO DAILY [facility] Last Admin: 06/12/23 09:18 Dose: 324 mg Gabapentin (Gabapentin 600 Mg Tablet) 600 mg PO BEDTIME [facility] Last Admin: 06/11/23 21:53 Dose: 600 mg Guaifenesin/Dextromethorphan (Guaifenesin Dm 200/20/10 Ml 10 Ml Syrup) 10 ml PO Q6H PRN PRN Reason: Cough Last Admin: 06/11/23 21:54 Dose: 10 ml Norphlet Carbonate (Norphlet Carbonate Er 450 Mg Tablet.Er) 1,350 mg PO BEDTIME [facility] Last Admin: 06/11/23 21:53 Dose: 1,350 mg Methylprednisolone Sodium Succinate (Methylprednisolone Sod Succ 40 Mg/Ml Vial) 40 mg IVPUSH Q12H [facility] Last Admin: 06/12/23 00:54 Dose: 40 mg Nicotine (Nicotine 14 Mg Patch.Td24) 14 mg TRANSDERMA DAILY [facility] Last Admin: 06/12/23 09:18 Dose: 14 mg Olanzapine (Olanzapine 10 Mg Tablet) 10 mg PO BEDTIME [facility] Last Admin: 06/11/23 21:53 Dose: 10 mg Omeprazole (Omeprazole 20 Mg Capsule.Dr) 20 mg PO DAILY@0630 [facility] Last Admin: 06/12/23 05:38 Dose: 20 mg Ondansetron HCl (Ondansetron Hcl 4 Mg/2 Ml Vial) 4 mg IVPUSH Q8H PRN PRN Reason: Nausea and Vomiting Ropinirole HCl (Ropinirole Hcl 1 Mg Tablet) 1 mg PO BEDTIME [facility] Last Admin: 06/11/23 22:18 Dose: 1 mg Sodium Chloride (0.9 % Sodium Chloride Flush 3 Ml Syringe) 3 ml IVFLUSH QSHIFT [facility] Last Admin: 06/12/23 09:23 Dose: 3 ml Tiotropium Aurora (Tiotropium Aurora 2.5 Mcg Inhaler) 1 puff INHALE RDAILY [facility] Last Admin: 06/12/23 08:02 Dose: Not Given Valacyclovir HCl (Valacyclovir Hcl 1,000 Mg Tablet) 1,000 mg PO BID [facility] Last Admin: 06/12/23 09:17 Dose: 1,000 mg Vitamin D (Cholecalciferol (Vitamin D3) 25 Mcg Tablet) 25 mcg PO DAILY [facility] Last Admin: 06/12/23 09:18 Dose: 25 mcg Home Medications Medication Instructions Recorded Confirmed Last Taken Type gabapentin 600 mg tablet 600 mg PO BEDTIME 04/12/23 06/11/23 06/10/23 History lithium carbonate 450 mg 1,350 mg PO BEDTIME 05/14/23 06/11/23 06/10/23 History tablet,extended release acetaminophen 500 mg tablet (Pain 1,000 mg PO Q8H PRN Pain 06/11/23 06/11/23 Unknown History Relief Extra Strength (acetaminophen)) cyanocobalamin (vitamin B-12) 1,000 mcg PO DAILY 06/11/23 06/11/23 06/11/23 09:00 History 1,000 mcg tablet (Vitamin B-12) ipratropium 0.5 mg-albuterol 3 mg 3 ml inhalation RQ6H PRN Shortness 06/11/23 06/11/23 Unknown History (2.5 mg base)/3 mL nebulization Of Breath Or Wheezing soln valacyclovir 1 gram tablet 1,000 mg PO BID 06/11/23 06/11/23 06/11/23 09:00 History Physical Exam Vital Signs: Vital Signs: Last Vital Signs Temp 98.2 F 06/12/23 05:28 Pulse 64 06/12/23 05:28 Resp 12 06/12/23 05:28 BP 117/67 06/12/23 05:28 Pulse Ox 93 06/12/23 05:28 O2 Del Method Nasal Cannula 06/12/23 05:28 O2 Flow Rate 3 06/12/23 05:28 Oxygen Flow Rate 2 06/11/23 10:00 BMI result Body Mass Index 44.4 Const: General: no acute distress and alert Nutritional Appearance: obese Orientation/consciousness: Other orientation findings ( oriented) HEENT: Head: Yes atraumatic Eyes: General: appearance normal, both eyes and all related structures Sclerae: sclerae normal EOM: EOMs intact bilaterally Neck: Neck: Yes supple Lymphatic: no lymphadenopathy noted Resp: Effort & Inspection: normal respiratory effort and no use of accessory muscles Auscultation: clear to auscultation bilaterally Cardio: Rate: regular rate Rhythm: regular rhythm Heart sounds: no gallops, no murmurs and no rubs Skin: General skin exam: other ( warm) Extrem: General: No clubbing, No cyanosis and No edema Results Laboratory Findings 06/11/23 12:57 06/11/23 13:57 ABG, PT/INR, D-dimer: PT/INR, D-dimer PT 10.7 SEC (11.1-13.3) L 06/11/23 12:49 INR 0.9 (0.9-1.1) 06/11/23 12:49 Abnormal lab findings: Abnormal Labs 06/11/23 06/11/23 06/12/23 12:49 12:57 08:52 Hct 47.7 H MCV 100.6 H PT 10.7 L VBG HCO3 32 H Assessment and Plan (1) COPD (chronic obstructive pulmonary disease): Qualifiers: COPD type: chronic bronchitis Chronic bronchitis type: mucopurulent Qualified Code(s): J41.1 - Mucopurulent chronic bronchitis Status: Acute (2) FABIOLA (obstructive sleep apnea): Status: Chronic (3) Acute bronchitis: Status: Acute Plan Impression: 53-year-old lady admitted with acute bronchitic exacerbation of underlying chronic asthma / COPD overlap syndrome, now with significant improvement. Recommendations: Agree with current treatment regimen of azithromycin, systemic glucocorticoids taper, and nebulized bronchodilators. Time Spent With Patient Time: Total time managing care of this patient today ____ minutes. Procedures Date of Service Date of Service: 06/12/23
[2023-06-12] MEDS: Albuterol/Iprat 2.5/0.5MG 3 ML AMPUL.NEB INHALE ×3 (12:15→18:44)
--- NOTE | 2023-06-12 14:54 | P.PNIM_ITS ---
Subjective Subjective Date of Service: 06/12/23 Interval History: Follow up for patient with acute asthma/COPD exacerbation No acute events overnight Patient states she is breathing better, cough resolved, but still wheezy and SOB with exertion States she slept well last night 1/2 blood cultures positive for Gram-positive cocci in clusters Patient denies fever, chills, nausea, vomiting Review of Systems Shortness of breath Wheezing Denies fever, chills, nausea, vomiting No chest pain/pressure, palpitations Denies abdominal pain Review of Systems: Yes all other systems are reviewed and are negative Physical Exam Vital Signs: Vital Signs: Last Vital Signs Temp 97.3 F 06/12/23 12:12 Pulse 77 06/12/23 12:17 Resp 18 06/12/23 12:17 BP 112/72 06/12/23 12:12 Pulse Ox 95 06/12/23 12:12 O2 Del Method Nasal Cannula 06/12/23 12:12 O2 Flow Rate 2 06/12/23 12:12 Oxygen Flow Rate 2 06/11/23 10:00 BMI result Body Mass Index 44.4 General: AOx3, no acute distress Resp: Diffuse expiratory wheezing and rhonchi CVS: S1, S2, RRR GI: +BS, NT, no distention Skin: No rash Neuro: Cranial nerves II-XII grossly intact bilaterally. Motor grossly intact bilaterally Psych: Appropriate affect Objective Data Active Medications Acetaminophen (Acetaminophen 325 Mg Tablet) 650 mg PO Q6H PRN PRN Reason: Pain, Mild (Pain Scale 1-3) Last Admin: 06/11/23 21:54 Dose: 650 mg Documented By: JW Albuterol Sulfate (Albuterol Sulfate 90 Mcg 8 Gm Inhaler) 2 puff INHALE Q4H PRN PRN Reason: shortness of breath or wheezing Albuterol/Ipratropium (Albuterol/Iprat 2.5/0.5mg 3 Ml Ampul.Neb) 3 ml INHALE RQ4H WHILE AWAKE TEJA Last Admin: 06/12/23 12:15 Dose: 3 ml Documented By: TRISHA Albuterol/Ipratropium (Albuterol/Iprat 2.5/0.5mg 3 Ml Ampul.Neb) 3 ml INHALE RQ6H PRN PRN Reason: Shortness Of Breath Or Wheezing Azithromycin (Azithromycin 250 Mg Tablet) 250 mg PO Q24H [facility] Last Admin: 06/12/23 09:18 Dose: 250 mg Documented By: JAIMIE Benzonatate (Benzonatate 100 Mg Capsule) 100 mg PO TID PRN PRN Reason: Cough Clonidine HCl (Clonidine Hcl 0.2 Mg Tablet) 0.2 mg PO BEDTIME [facility]; Protocol Last Admin: 06/11/23 21:53 Dose: 0.2 mg Documented By: WJ Cyanocobalamin (Cyanocobalamin (Vitamin B-12) 1,000 Mcg Tablet) 1,000 mcg PO DAILY [facility] Last Admin: 06/12/23 09:18 Dose: 1,000 mcg Documented By: JAIMIE Docusate Sodium (Docusate Sodium 100 Mg Capsule) 100 mg PO DAILY PRN PRN Reason: Constipation Enoxaparin Sodium (Enoxaparin Sodium 40 Mg/0.4 Ml Syringe) 40 mg SUBCUT Q24H [facility] Last Admin: 06/11/23 17:36 Dose: 40 mg Documented By: EVELYN Ferrous Sulfate (Ferrous Sulfate 324 Mg Tablet.Dr) 324 mg PO DAILY [facility] Last Admin: 06/12/23 09:18 Dose: 324 mg Documented By: JAIMIE Gabapentin (Gabapentin 600 Mg Tablet) 600 mg PO BEDTIME [facility] Last Admin: 06/11/23 21:53 Dose: 600 mg Documented By: JW Guaifenesin/Dextromethorphan (Guaifenesin Dm 200/20/10 Ml 10 Ml Syrup) 10 ml PO Q6H PRN PRN Reason: Cough Last Admin: 06/11/23 21:54 Dose: 10 ml Documented By: JW [place] Carbonate ([place] Carbonate Er 450 Mg Tablet.Er) 1,350 mg PO BEDTIME [facility] Last Admin: 06/11/23 21:53 Dose: 1,350 mg Documented By: JW Methylprednisolone Sodium Succinate (Methylprednisolone Sod Succ 40 Mg/Ml Vial) 40 mg IVPUSH Q12H [facility] Last Admin: 06/12/23 00:54 Dose: 40 mg Documented By: VANESSA Nicotine (Nicotine 14 Mg Patch.Td24) 14 mg TRANSDERMA DAILY [facility] Last Admin: 06/12/23 09:18 Dose: 14 mg Documented By: JAIMIE Olanzapine (Olanzapine 10 Mg Tablet) 10 mg PO BEDTIME [facility] Last Admin: 06/11/23 21:53 Dose: 10 mg Documented By: JW Omeprazole (Omeprazole 20 Mg Capsule.) 20 mg PO DAILY@0630 [facility] Last Admin: 06/12/23 05:38 Dose: 20 mg Documented By: VANESSA Ondansetron HCl (Ondansetron Hcl 4 Mg/2 Ml Vial) 4 mg IVPUSH Q8H PRN PRN Reason: Nausea and Vomiting Ropinirole HCl (Ropinirole Hcl 1 Mg Tablet) 1 mg PO BEDTIME [facility] Last Admin: 06/11/23 22:18 Dose: 1 mg Documented By: JW Sodium Chloride (0.9 % Sodium Chloride Flush 3 Ml Syringe) 3 ml IVFLUSH QSHIFT [facility] Last Admin: 06/12/23 09:23 Dose: 3 ml Documented By: JAIMIE Tiotropium [place] (Tiotropium [place] 2.5 Mcg Inhaler) 1 puff INHALE RDAILY S Last Admin: 06/12/23 08:02 Dose: Not Given Documented By: TRISHA Non-Admin Reason: pharmacy called Valacyclovir HCl (Valacyclovir Hcl 1,000 Mg Tablet) 1,000 mg PO BID [facility] Last Admin: 06/12/23 09:17 Dose: 1,000 mg Documented By: JAIMIE Vitamin D (Cholecalciferol (Vitamin D3) 25 Mcg Tablet) 25 mcg PO DAILY [facility] Last Admin: 06/12/23 09:18 Dose: 25 mcg Documented By: JAIMIE Labs 06/11/23 12:57 06/11/23 13:57 Labs: Laboratory Results - last 24 hr 06/12/23 06/12/23 06/12/23 05:01 08:50 08:52 VBG pH 7.35 VBG pCO2 58 VBG pO2 93 VBG HCO3 32 H VBG O2 Saturation 98.0 VBG Base Excess 5.4 Urine Opiates Screen Not Detected Urine Fentanyl Screen Not Detected Ur Barbiturates Screen Not Detected Ur Phencyclidine Scrn Not Detected Ur Amphetamines Screen Not Detected U Benzodiazepines Scrn Not Detected [place] 0.71 Urine Cocaine Screen Not Detected U Marijuana (THC) Screen Not Detected Microbiology Microbiology Results: Microbiology 06/11/23 12:57 Blood Culture - Preliminary Blood - Venous Prelim: GPC Gram Stain only Assessment and Plan (1) Asthma exacerbation in COPD: Status: Acute (2) Bacteremia: Status: Acute Plan Pt is a 53-year-old female with a PMH significant for COPD/asthma not on home O2, fibromyalgia,?osteoarthritis, hx of recurrent UTI, polysubstance abuse, borderline personality disorder, bipolar disorder, and anxiety who presented to the ED with?increasing shortness of breath with exertion for the past 3-4 days. Pt was admitted to the hospital for acute hypoxic respiratory failure in the setting of COPD/asthma exacerbation. Acute hypoxic respiratory failure in the setting of asthma/COPD exacerbation Patient with increasing SOB x3 days, wheezing and rhonchi on examination, desatted to 88% O2 on RA Breathing better, still hypoxic Continue Solu-Medrol, DuoNebs Benzonatate and guaifenesin for cough Titrate supplemental O2 >92, wean as tolerated Azithromycin 500mg qd, started 06/11/2023 Continue home inhalers Pulmonology consult Monitor respiratory status Bacteremia 1/2 blood cultures positive for g+ cocci in clusters Patient is not septic, afebrile, no leukocytosis Will start on ceftriaxone started 06/12/2023 Follow cultures GERD Continue PPI Nicotine dependence Continue home NRT Smoking cessation consult Obesity class 3 Weight loss encouraged Mood disorder Continue home meds Full Code Attending:?Dr. Jett DVT Prophylaxis: Lovenox Pt will require continued hospitalization for treatment of?acute hypoxic respira tory failure in setting of asthma/COPD exacerbation with IV steroids, breathing treatments, and supplemental oxygen. Time Spent With Patient Time: Total time managing care of this patient today ____ minutes. Quality Stroke Does the patient have a stroke diagnosis?: No VTE Prior VTE?: No VTE Risk Level:: Medical - moderate - high VTE Device Contraindication: Treatment Not Indicated VTE Drug Contraindication: N/A - Med Ordered
[2023-06-12] MEDS: Enoxaparin Sodium 40 MG/0.4 ML SYRINGE SUBCUT (16:48)
[2023-06-12] MEDS: guaiFENesin DM 200/20/10 ML 10 ML SYRUP PO (16:48)
[2023-06-12] MEDS: Gabapentin 600 MG TABLET PO (20:00)
[2023-06-12] MEDS: Docusate Sodium 100 MG CAPSULE PO (20:00)
[2023-06-12] MEDS: rOPINIRole HCL 1 MG TABLET PO (20:00)
[2023-06-12] MEDS: Lithium Carbonate ER 450 MG TABLET.ER 1350 MG PO (20:00)
[2023-06-12] MEDS: OLANZapine 10 MG TABLET PO (20:01)
[2023-06-12] MEDS: cloNIDine HCL 0.2 MG TABLET PO (20:01)
--- NOTE | 2023-06-12 20:04 | PC.NURSE ---
patient refused bed alarm,explained risks of falling,encouraged use of call castillo and waiting for assistance
[2023-06-12] MEDS: cefTRIAXone sodium 1 GM in 0.9 % Sodium Chloride 50 ML IV (20:20)
[2023-06-13] MEDS: methylPREDNISolone Sod Succ 40 MG/ML VIAL IVPUSH (00:31)
[2023-06-13] MEDS: 0.9 % Sodium Chloride Flush 3 ML SYRINGE IVFLUSH ×2 (00:34→07:27)
[2023-06-13 04:00] VITALS: BP 106/55; PULSE 62; RESP 20; TEMP 36.2; O2SAT 92
[2023-06-13] MEDS: Omeprazole 20 MG CAPSULE.DR PO (06:14)
[2023-06-13] MEDS: Cyanocobalamin (Vitamin B-12) 1,000 MCG TABLET 1000 MCG PO (07:27)
[2023-06-13] MEDS: Azithromycin 250 MG TABLET PO (07:27)
[2023-06-13] MEDS: valACYclovir HCL 1,000 MG TABLET 1000 MG PO (07:27)
[2023-06-13] MEDS: Cholecalciferol (Vitamin D3) 25 MCG TABLET PO (07:28)
[2023-06-13] MEDS: Ferrous Sulfate 324 MG TABLET.DR PO (07:28)
[2023-06-13] MEDS: Albuterol/Iprat 2.5/0.5MG 3 ML AMPUL.NEB INHALE ×2 (07:46→12:18)
[2023-06-13 07:49] VITALS: PULSE 77; RESP 16; O2SAT 92
[2023-06-13 08:00] VITALS: BP 123/60; PULSE 84; RESP 18; TEMP 36.4; O2SAT 92
[2023-06-13 10:22] VITALS: PULSE 88; RESP 16; O2SAT 94
[2023-06-13 12:18] VITALS: PULSE 88; RESP 16; O2SAT 93
--- NOTE | 2023-06-13 12:50 | PM.DS ---
DS: Providers Provider Date of Service: 06/13/23 Date of admission: 06/11/23 16:40 Primary care physician: Mike Malone MD Consults: 06/11/23 18:14 Consult to Pulmonology Routine Consulting Provider: [facility] Reason for consultation: Multiple hospital admissions for asthma/COPD overlap DS: Diagnosis Discharge Diagnosis (1) Asthma exacerbation in COPD: Status: Acute (2) Bacteremia: Status: Acute DS: Summary Hospital Course Hospital Course: History and physical as per admitting provider. Pt is a 53-year-old female with a PMH significant for COPD/asthma not on home O2, fibromyalgia,?osteoarthritis, hx of recurrent UTI, polysubstance abuse, borderline personality disorder, bipolar disorder, and anxiety who presents to the ED with?increasing shortness of breath with exertion for the past 3-4 days.? Also been experiencing persistent cough productive of whitish sputum.? Patient reports chills but no fever, vomiting with p.o. intake for the past 2 days.? She also states she has been having diffuse lower abdominal pain associated with coughing and vomiting.? Patient has been using her inhalers multiple times a day to no effect.? Denies chest pain/pressure, palpitations.? Patient presents today due to her worsening shortness of breath is not alleviated by her home medications.? Of note, patient desatted to 88% O2 when luminal oxygen was removed. She is well known to the facility with multiple hospital and psychiatric admissions.? She continues to smoke between 5 and 6 cigarettes a day. In the ED pt was afebrile with BP little soft at 101/59 satting 93% oxygen 2 L NC. Labs were grossly unremarkable.? No leukocytosis.? Stable H&H.? Electrolytes WNL.? Renal function, hepatic function at baseline.? Troponin negative.? BNP WNL at 76. CXR showed no acute cardiopulmonary process. EKG demonstrated normal sinus rhythm with T-wave abnormality but evidence of ST elevations or depressions. Pt was treated with DuoNebs, Solu-Medrol, hydrocodone/homatropine, benzonatate, azithromycin, and magnesium sulfate. Pt will be admitted to the hospital for acute hypoxic respiratory failure in the setting of COPD/asthma exacerbation. 53-year-old woman treated for acute hypoxic respiratory failure secondary to asthma/COPD exacerbation. She was treated with IV Solu-Medrol , scheduled DuoNebs, azithromycin along with guaifenesin and Tessalon Perles. Patient did not require any oxygen supplementation and subsequently has not been hypoxic any further. Initial blood cultures were noted to be gram-positive cocci however came back coag-negative staph 11/01. Patient is stable for discharge home with 4 more days of prednisone and 2 more days of azithromycin. Smoking cessation encouraged. Time Spent with Patient Time attestation: Total time managing care of this patient today ____ minutes. Discharge coordination time: Greater than 30 minutes Quality: Safe Use of Opioids Does Pt have an Active Cancer Diagnosis on the Problem List?: No Quality: Stroke Does the patient have a stroke diagnosis?: No Physical Exam Vital Signs: Vital Signs: Last Vital Signs Temp 97.5 F 06/13/23 08:00 Pulse 88 06/13/23 12:18 Resp 16 06/13/23 12:18 BP 123/60 06/13/23 08:00 Pulse Ox 92 06/13/23 08:00 O2 Del Method Room Air 06/13/23 08:00 O2 Flow Rate 1.5 06/12/23 19:37 Oxygen Flow Rate 2 06/11/23 10:00 BMI result Body Mass Index 44.4 Appearing in no acute distress head is normocephalic atraumatic eyes pupils are PERRLA sclera is anicteric mouth throat mucous membranes are intact and moist neck is supple no lymphadenopathy, no JVD noted lung sounds are clear to auscultation heart regular rate rhythm, clear S1, S2 positive bowel sounds, abdomen is soft, nontender neuro patient is alert x3, no focal deficits DS: Data Data Completed and Pending Completed studies during hospitalization [Text1]: Procedures Assistance with Respiratory Ventilation, Less than 24 Consecutive Hours, Continuous Positive Airway Pressure (12/28/22) Drainage of Left Parotid Gland, Percutaneous Approach, Diagnostic (11/09/21) Drainage of Neck, Percutaneous Approach, Diagnostic (03/17/22) Excision of Left Parotid Gland, Percutaneous Approach, Diagnostic (03/17/22) Introduction of Remdesivir Anti-infective into Peripheral Vein, Percutaneous Approach, [employer] (06/01/22) Labs on day of discharge: Preliminary micro results at discharge 06/11/23 12:49 Blood Culture - Preliminary Blood - Venous No growth after 24 hours. Discharge Plan Discharge Anticipated Discharge Date/Time: 06/13/23 12:39 Patient Disposition: Home, Self-Care Discharge Diagnosis: Acute hypoxic respiratory failure Asthma/COPD exacerbation Referrals: Mike Malone MD [Primary Care Provider] - 1 Week Discharge Medications: New azithromycin 250 mg Tablet 250 mg PO Q24H Qty: 2 0RF prednisone 10 mg tablet 40 mg PO DIRECTED Qty: 16 0RF Rx Instructions: see taper instructions Continued ropinirole 1 mg Tablet 1 mg PO BEDTIME Qty: 30 0RF nicotine 14 mg/24 hr Patch 24 Hour 14 mg transdermal DAILY Qty: 30 0RF olanzapine 10 mg Tablet 10 mg PO BEDTIME Qty: 30 0RF clonidine HCl 0.2 mg Tablet 0.2 mg PO BEDTIME Qty: 30 0RF Protocol: Hold for SBP< HOLD for SBP < : 90 albuterol sulfate [Ventolin HFA] 90 mcg/actuation Hfa Aerosol Inhaler 2 puff inhalation Q4H PRN (Reason: shortness of breath or wheezing) Qty: 6.7 0RF Spiriva with HandiHaler 18 mcg Capsule, W/Inhalation Device 18 mcg inhalation RDAILY Qty: 20 0RF ferrous sulfate 324 mg (65 mg iron) Tablet,Delayed Release (Dr/Ec) 324 mg PO DAILY Qty: 30 0RF omeprazole 20 mg Capsule,Delayed Release(Dr/Ec) 20 mg PO DAILY@0630 Qty: 30 0RF cholecalciferol (vitamin D3) 25 mcg (1,000 unit) Tablet 25 mcg PO DAILY Qty: 30 0RF gabapentin 600 mg tablet 600 mg PO BEDTIME lithium carbonate 450 mg tablet extended release 1,350 mg PO BEDTIME cyanocobalamin (vitamin B-12) [Vitamin B-12] 1,000 mcg tablet 1,000 mcg PO DAILY acetaminophen [Pain Relief ES (acetaminophen)] 500 mg tablet 1,000 mg PO Q8H PRN (Reason: Pain) valacyclovir 1 gram tablet 1,000 mg PO BID ipratropium-albuterol 0.5 mg-3 mg(2.5 mg base)/3 mL solution for nebulization 3 ml inhalation RQ6H PRN (Reason: Shortness Of Breath Or Wheezing) Discharge Orders: Discharge Order (Routine); Ordered 06/13/23 Ordered By: Carla Palmer Diet: Advance to usual diet Activity on Discharge: As tolerated Stand Alone Forms: Patient Portal Discharge page Care Plan Goals: Complete resolution of symptoms Health Concerns: Acute hypoxic respiratory failure Asthma/COPD exacerbation Plan of Treatment: Follow-up with primary care provider as needed Take all medications as prescribed Assessment: See discharge summary
--- NOTE | 2023-06-13 14:50 | MHC.CM.PN ---
Patient was discharged prior to CM assessment.
--- NOTE | 2023-06-16 12:59 | PM.EVENT ---
Event Note Date of Service: 06/16/23 Event Note: patient discharged on 06/13/23. blood cx back 06/15 with 1/2 GNR. patient treated for asthma. no urinary symptoms and ua negative. discussed with infectious disease provider, will follow final cx,. If positive will send antibiotic coverage depending on final cx. Time Spent With Patient Time: Total time managing care of this patient today ____ minutes.
--- NOTE | 2023-06-19 14:33 | PM.EVENT ---
Event Note Date of Service: 06/19/23 Event Note: Blood culture 1/2 positive for Actinomyces. Discussed with infectious disease provider Dr. Royer morales, she recommends chest CT and doxycycline and follow-up in her office. Attempted to reach patient on cell phone [phone] but no answer, left message for patient to call May number of [facility] back. Also reached out to 1st contact anayeli Zhu, telephone number [phone], however he reports that he has not spoken to her recently but if he does he will give her a message to call [facility] soon as possible. Prescription for doxycycline 100 mg twice daily for 14 days sent to her pharmacy and chest CT ordered and scheduled for tomorrow. awaiting for phone call from patient. Time Spent With Patient Time: Total time managing care of this patient today ____ minutes.
== END 2023-06-13 13:53 | disposition home or self-care (01) | DRG 140 ==
LOC: HO.ED 14:41 → HO.EDOVER 16:54 → HO.S3 06-12 10:43
PROVIDERS: Internal Medicine Pulmonary Disease; Physician Assistant; Admitting Provider Student in an Organized Health Care Education/Training Program; Emergency Provider Emergency Medicine Emergency Medical Services; PCP Internal Medicine; Visit Provider Nurse Practitioner Acute Care
DX: J41.1 Mucopurulent chronic bronchitis (principal); J96.01 Acute respiratory failure with hypoxia; E66.01 Morbid (severe) obesity due to excess calories; Z68.41 Body mass index [BMI] 40.0-44.9, adult; J45.901 Unspecified asthma with (acute) exacerbation; F31.9 Bipolar disorder, unspecified; G47.33 Obstructive sleep apnea (adult) (pediatric); F43.10 Post-traumatic stress disorder, unspecified; Z91.040 Latex allergy status; Z79.899 Other long term (current) drug therapy
CPT/HCPCS: 0241U; 36415; 71045; 80048; 80076; 80178; 80307; 82803; 83605; 83735; 83880; 84484; 85025; 85610; 87040; 87076; 87147; 87205; 93005; 94640; 94660; 99285; J0456; J0696; J1650; J2920; J2930; J3475

== ENCOUNTER → 2023-06-11 11:51 | Outpatient (BNV) | payer MEDICAID, SELFPAY | PROVIDERS: Admitting Provider Student in an Organized Health Care Education/Training Program; Emergency Provider Emergency Medicine Emergency Medical Services; PCP Internal Medicine; Visit Provider Internal Medicine Cardiovascular Disease | DX: R94.31 Abnormal electrocardiogram [ECG] [EKG] (principal) | CPT/HCPCS: 93010 ==

== ENCOUNTER → 2023-06-11 16:40 | Outpatient (BNV) | payer MEDICAID, SELFPAY | PROVIDERS: Admitting Provider Student in an Organized Health Care Education/Training Program; Emergency Provider Emergency Medicine Emergency Medical Services; PCP Internal Medicine; Visit Provider Internal Medicine Pulmonary Disease | DX: J41.1 Mucopurulent chronic bronchitis (principal); G47.33 Obstructive sleep apnea (adult) (pediatric); J20.9 Acute bronchitis, unspecified | CPT/HCPCS: 99222 ==

== ENCOUNTER → 2023-06-11 16:40 | Outpatient (BNV) | payer MEDICAID, SELFPAY | PROVIDERS: Admitting Provider Student in an Organized Health Care Education/Training Program; Emergency Provider Emergency Medicine Emergency Medical Services; PCP Internal Medicine; Visit Provider Student in an Organized Health Care Education/Training Program | DX: J45.901 Unspecified asthma with (acute) exacerbation (principal) | CPT/HCPCS: 99223; 99232; 99239; 99499 ==

== ENCOUNTER 2023-07-06 21:28 | Emergency (ER) | payer MEDICAID, OTHER, SELFPAY ==
[2023-07-06 21:41] VITALS: BP 144/94; PULSE 80; RESP 18; TEMP 36.6; O2SAT 94; BMI 35.5
[2023-07-06 22:44] LABS: Appearance Urine Clear; Color Urine Yellow; Glucose Urine UA Negative (Negative); Leukocyte Esterase Urine Negative (Negative); Nitrite Urine Negative (Negative); PH 7.5 (5.0-9.0); Urine Blood Negative (Negative); Urine Ketones Negative (Negative); Urine Protein Negative (Neg-Trace)
[2023-07-06 22:52] LABS: Amphetamine Screen Urine Not Detected (Not Detect); Barbiturates, Urine Not Detected (Not Detect); Benzodiazepines Screen Urine Not Detected (Not Detect); Cannabinoid Screen Urine Not Detected (Not Detect); Cocaine Screen Urine Not Detected (Not Detect); Fentanyl, urine Not Detected (Not Detect); Opiate Screen Urine Not Detected (Not Detect); Phencyclidine Screen Urine Not Detected (Not Detect)
--- NOTE | 2023-07-06 23:54 | ED.PSYCH ---
HPI - Psych General Chief Complaint: Psychiatric Symptoms Stated Complaint: SI Time Seen by Provider: 07/06/23 22:46 Source: patient Mode of arrival: EMS Limitations: no limitations History of Present Illness HPI Narrative: Patient with History of bipolar disorder borderline personality disorder been here multiple times for suicidal ideation comes in with same complaints also wanted to kill her neighbor were bothering her denies any substance abuse Related Data Home Medications Medication Instructions Recorded Confirmed gabapentin 600 mg tablet 600 mg PO BEDTIME 04/12/23 07/06/23 lithium carbonate 450 mg 1,350 mg PO BEDTIME 05/14/23 07/06/23 tablet,extended release acetaminophen 500 mg tablet (Pain 1,000 mg PO Q8H PRN Pain 06/11/23 07/06/23 Relief Extra Strength (acetaminophen)) cyanocobalamin (vitamin B-12) 1,000 mcg PO DAILY 06/11/23 07/06/23 1,000 mcg tablet (Vitamin B-12) ipratropium 0.5 mg-albuterol 3 mg 3 ml inhalation RQ6H PRN Shortness 06/11/23 07/06/23 (2.5 mg base)/3 mL nebulization Of Breath Or Wheezing soln valacyclovir 1 gram tablet 1,000 mg PO BID 06/11/23 07/06/23 Previous Rx's Medication Instructions Recorded albuterol sulfate 90 mcg/actuation 2 puff inhalation Q4H PRN 03/22/23 aerosol inhaler (Ventolin HFA) shortness of breath or wheezing #6.7 grams cholecalciferol (vitamin D3) 25 25 mcg PO DAILY #30 tabs 03/22/23 mcg (1,000 unit) tablet clonidine HCl 0.2 mg tablet 0.2 mg PO BEDTIME #30 tabs 03/22/23 ferrous sulfate 324 mg (65 mg 324 mg PO DAILY #30 tabs 03/22/23 iron) tablet,delayed release nicotine 14 mg/24 hr daily 14 mg transdermal DAILY #30 ea 03/22/23 transdermal patch olanzapine 10 mg tablet 10 mg PO BEDTIME #30 tabs 03/22/23 omeprazole 20 mg capsule,delayed 20 mg PO DAILY@0630 #30 caps 03/22/23 release ropinirole 1 mg tablet 1 mg PO BEDTIME #30 tabs 03/22/23 tiotropium bromide 18 mcg capsule 18 mcg inhalation RDAILY #20 03/22/23 with inhalation device (Spiriva inhalations with HandiHaler) Allergies Allergy/AdvReac Type Severity Reaction Status Date / Time aspirin Allergy Mild Anaphylaxis Verified 06/11/23 10:01 ampicillin Allergy Rash Verified 12/26/22 10:32 Penicillins Allergy Anaphylaxis Verified 03/15/23 17:49 latex AdvReac Rash Verified 03/15/23 17:49 Latex, Natural Rubber AdvReac Rash Verified 03/15/23 17:49 seafood AdvReac Stomach Verified 12/26/22 10:32 Upset Sulfa (Sulfonamide AdvReac Hives Verified 03/15/23 17:49 Antibiotics) Review of Systems Review of Systems: Yes all other systems are reviewed and are negative PMFSH Past Medical History Medical History Asthma exacerbation in COPD Asthma-COPD overlap syndrome Bipolar disorder Bipolar I disorder Borderline personality disorder Chronic lung disease COPD (chronic obstructive pulmonary disease) COPD (chronic obstructive pulmonary disease) Depression Drug abuse Herpes Intermittent explosive disorder 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 FABIOLA (obstructive sleep apnea) Post traumatic stress disorder (PTSD) Tobacco use Tobacco use disorder Surgical History History of ankle surgery History of appendectomy History of back surgery Hx of cholecystectomy Family History Family History Mother COPD (chronic obstructive pulmonary disease) Social History Social History Household Members: None Household Members Other:: Retirement in [place] Housing: Apartment Housing Other:: Sleeps on the couch at [facility] house Do you presently have visiting nurse or other home services: No Unable to assess alcohol history related to: Unknown Alcohol intake: never Patient Tobacco Use Status: Current everyday Tobacco user Tobacco use type: Cigarette Cigarette Packs Per Day: 3 Cigarettes Per Day: 5 Years Smoked: 35 e-Cigarette/Vaping Use: Former Use Second Hand Smoke Exposure: No Substance Use Type: Crack/Cocaine Advance Directives: Yes Advance Directives on File: Yes Advance Directives Date on File: 06/17/22 service: No Current occupational status: unemployed and disabled Sexual orientation: Straight/Heterosexual Physical Exam Vital Signs: Vital Signs: Last Vital Signs Temp 97.8 F 07/06/23 21:41 Pulse 80 07/06/23 21:41 Resp 18 07/06/23 21:41 BP 144/94 H 07/06/23 21:41 Pulse Ox 94 07/06/23 21:41 O2 Del Method Room Air 07/06/23 21:41 BMI result Body Mass Index 35.5 Appearance: Alert. Oriented X3. No acute distress. Eyes: PERRLA, No Nystagmus ENT: Pharynx normal. Oral Mucosa moist Neck: Normal inspection. Neck supple. CVS: Normal heart rate and rhythm. Pulses normal. Respiratory: No respiratory distress. Equal air entry bilateral, no wheezing/rales/rhonchi Abdomen: Soft and nontender. Bowel sounds are present, no mass palpable, no CVA tenderness Skin: Skin warm and dry. Normal skin color. Normal skin turgor. Extremities: No lower extremity edema. No calf tenderness psych: Feel depressed denies any SI at this time feels homicidal sometimes cheerful in the ER Neuro: Oriented X 3. No motor deficit. No sensory deficit.No cerebellar signs , cranial nerves II-XII intact Medical Decision Making Medical Decision Making MDM Narrative: Patient has significant depression homicidal and suicidal will get care time involved Lab Data MDM Lab Attestation statement: I reviewed the patient's lab results. Labs: Lab Results 07/06/23 07/06/23 Range/Units 22:29 22:29 Urine Color Yellow Urine Appearance Clear Urine pH 7.5 (5.0-9.0) Ur Specific [place] 1.010 (1.005-1.025) Urine Protein Negative (Neg-Trace) mg/dL Urine Glucose (UA) Negative (Negative) mg/dL Urine Ketones Negative (Negative) mg/dL Urine Blood Negative (Negative) Urine Nitrite Negative (Negative) Ur Leukocyte Esterase Negative (Negative) Urine Opiates Screen Not Detected (Not Detect) Urine Fentanyl Screen Not Detected (Not Detect) Ur Barbiturates Screen Not Detected (Not Detect) Ur Phencyclidine Scrn Not Detected (Not Detect) Ur Amphetamines Screen Not Detected (Not Detect) U Benzodiazepines Scrn Not Detected (Not Detect) Urine Cocaine Screen Not Detected (Not Detect) U Marijuana (THC) Screen Not Detected (Not Detect) Discharge Plan Discharge Clinical Impression: Bipolar I disorder, Borderline personality disorder, Suicidal ideation, Homicidal ideation Patient Disposition: Still a Patient Prescriptions: No Action ropinirole 1 mg Tablet 1 mg PO BEDTIME Qty: 30 0RF nicotine 14 mg/24 hr Patch 24 Hour 14 mg transdermal DAILY Qty: 30 0RF olanzapine 10 mg Tablet 10 mg PO BEDTIME Qty: 30 0RF clonidine HCl 0.2 mg Tablet 0.2 mg PO BEDTIME Qty: 30 0RF Protocol: Hold for SBP< HOLD for SBP < : 90 albuterol sulfate [Ventolin HFA] 90 mcg/actuation Hfa Aerosol Inhaler 2 puff inhalation Q4H PRN (Reason: shortness of breath or wheezing) Qty: 6.7 0RF Spiriva with HandiHaler 18 mcg Capsule, W/Inhalation Device 18 mcg inhalation RDAILY Qty: 20 0RF ferrous sulfate 324 mg (65 mg iron) Tablet,Delayed Release (Dr/Ec) 324 mg PO DAILY Qty: 30 0RF omeprazole 20 mg Capsule,Delayed Release(Dr/Ec) 20 mg PO DAILY@0630 Qty: 30 0RF cholecalciferol (vitamin D3) 25 mcg (1,000 unit) Tablet 25 mcg PO DAILY Qty: 30 0RF gabapentin 600 mg tablet 600 mg PO BEDTIME lithium carbonate 450 mg tablet extended release 1,350 mg PO BEDTIME cyanocobalamin (vitamin B-12) [Vitamin B-12] 1,000 mcg tablet 1,000 mcg PO DAILY acetaminophen [Pain Relief ES (acetaminophen)] 500 mg tablet 1,000 mg PO Q8H PRN (Reason: Pain) valacyclovir 1 gram tablet 1,000 mg PO BID ipratropium-albuterol 0.5 mg-3 mg(2.5 mg base)/3 mL solution for nebulization 3 ml inhalation RQ6H PRN (Reason: Shortness Of Breath Or Wheezing) Interventions: [place]-Suicide Risk Severity Scale Last Done: 07/07/23 01:52
--- NOTE | 2023-07-07 06:42 | PC.NURSE ---
Patient slept through the night, no distress observed/reported, behavior non concerning, care consult ordered/pending evaluation, blood draw attempted x 3 with no success re-approach in the morning, med rec completed/pending provider's approval, VSS, will continue to monitor.
[2023-07-07 06:45] VITALS: BP 124/67; PULSE 75; RESP 16; O2SAT 92
[2023-07-07] MEDS: Acetaminophen 325 MG TABLET 650 MG PO (12:02)
[2023-07-07] MEDS: Cyanocobalamin (Vitamin B-12) 1,000 MCG TABLET 1000 MCG PO (12:02)
[2023-07-07] MEDS: Cholecalciferol (Vitamin D3) 25 MCG TABLET PO (12:02)
[2023-07-07] MEDS: valACYclovir HCL 1,000 MG TABLET 1000 MG PO ×2 (12:03→20:44)
[2023-07-07] MEDS: Omeprazole 20 MG CAPSULE.DR PO (12:03)
[2023-07-07] MEDS: Nicotine 14 MG PATCH.TD24 TRANSDERMA (12:03)
[2023-07-07] MEDS: Ferrous Sulfate 324 MG TABLET.DR PO (12:03)
--- NOTE | 2023-07-07 12:56 | MHC.CARE ---
Checked in with pt. Pt is still endorsing SI and HI with the HI directed at her neighbor. CARE Team spoke with pt regarding the day programs that she was referred to, the importance of a day structure fopr her, and CARE Team's contact with her [facility] staff. [facility] stated they had not had an interaction with pt since July of last year. CARE Team stressed the importance of following up with and taking calls from DM as this is a resource for her.
[2023-07-07 15:50] VITALS: BP 127/65; PULSE 78; RESP 16; TEMP 36.2; O2SAT 94
[2023-07-07 20:43] VITALS: BP 156/94; PULSE 80; RESP 16; O2SAT 94
[2023-07-07] MEDS: Lithium Carbonate ER 450 MG TABLET.ER 1350 MG PO (20:43)
[2023-07-07] MEDS: OLANZapine 10 MG TABLET PO (20:44)
[2023-07-07] MEDS: Gabapentin 600 MG TABLET PO (20:44)
[2023-07-07] MEDS: cloNIDine HCL 0.2 MG TABLET PO (20:44)
[2023-07-07] MEDS: rOPINIRole HCL 1 MG TABLET PO (21:15)
[2023-07-07 21:16] LABS: MANUAL DIFF FLAG NO
[2023-07-07 21:18] LABS: Basophils Absolute Auto 0.1 X10*3/uL (0.0-0.2); Basophils Percent Auto 0.8 % (0-2); Eosinophils Absolute Auto 0.2 X10*3/uL (0.0-0.4); Eosinophils Percent Auto 2.8 % (0-4); Hematocrit 45.6 % (37.0-47.0); Hemoglobin 15.1 g/dl (12.0-16.0); Imm Gran Abs Auto 0.01 X10*3/uL (0.00-0.03); Imm Gran Pct Auto 0.2 % (0.0-0.4); Lymphocytes Absolute Auto 2.6 X10*3/uL (1.2-4.9); Lymphocytes Percent Auto 41.4 % (20-40); Mean Corpuscular HGB Conc 33.1 g/dl (31.0-35.0); Mean Corpuscular Hemoglobin 31.9 pg (27.0-33.0); Mean Corpuscular Volume 96.2 fL (80.0-98.0); Mean Platelet Volume 10.1 fL (9.4-12.3); Monocytes Absolute Auto 0.5 X10*3/uL (0.1-1.2); Monocytes Percent Auto 7.5 % (2-11); Neutrophils Percent Auto 47.3 % (45-73); Platelet Count 235 X10*3/uL (160-400); Red Blood Count 4.74 X10*6/uL (4.20-5.50); Red Cell Distribution Width 11.8 % (11.0-16.0); White Blood Count 6.4 X10*3/uL (4.8-10.8)
[2023-07-07 21:34] LABS: Lithium 0.25 mmol/L (0.60-1.20)
[2023-07-07 21:52] LABS: Acetaminophen LAB < 17 mcg/mL (<30); Alanine Aminotransferase 12 U/L (0-31); Albumin Level 4.2 g/dL (3.5-5.0); Alkaline Phosphatase 70 U/L (39-117); Anion Gap 15 (12-20); Aspartate Amino Transferase 11 U/L (5-31); Bilirubin Total 0.1 mg/dL (0.0-1.0); Blood Urea Nitrogen 13 mg/dL (9-16); Carbon Dioxide 25 mmol/L (22-29); Chloride 106 mmol/L (96-108); Creatinine Clr Calc Pharmacy 103.2; Estimated Glomerular Filt Rate > 60; Ethanol < 10 mg/dL; Glucose Random 114 mg/dL (60-115); Salicylate < 5.0 mg/dL (15-30); Sodium 142 mmol/L (135-145); Total Protein 6.9 g/dL (6.5-8.0)
--- NOTE | 2023-07-08 02:39 | PC.NURSE ---
Patient is currently appears sleeping, no distress observed/reported, behavior non concerning, labs completed/resulted, disposition per care team is JOHN follow up, behavior non concerning, elimination intact, appetite good, VSS, will continue to monitor.
[2023-07-08] MEDS: Omeprazole 20 MG CAPSULE.DR PO (05:56)
[2023-07-08 06:30] VITALS: BP 117/67; PULSE 74; RESP 16; TEMP 36.2; O2SAT 95
[2023-07-08] MEDS: Nicotine 14 MG PATCH.TD24 TRANSDERMA (09:03)
[2023-07-08] MEDS: Cholecalciferol (Vitamin D3) 25 MCG TABLET PO (09:03)
[2023-07-08] MEDS: Cyanocobalamin (Vitamin B-12) 1,000 MCG TABLET 1000 MCG PO (09:03)
[2023-07-08] MEDS: Ferrous Sulfate 324 MG TABLET.DR PO (09:03)
[2023-07-08] MEDS: valACYclovir HCL 1,000 MG TABLET 1000 MG PO ×2 (09:03→20:24)
[2023-07-08] MEDS: Acetaminophen 325 MG TABLET 650 MG PO (09:03)
--- NOTE | 2023-07-08 12:49 | PHA.MEDREC ---
Pharmacy Consult ? Medication Reconciliation Pharmacy has completed the medication reconciliation. Reviewed med rec done by nursing
--- NOTE | 2023-07-08 13:17 | PC.NURSE ---
CARE TEAM AT BEDSIDE, PT AWARE OF PLAN OF CARE.
--- NOTE | 2023-07-08 15:53 | PC.NURSE ---
Bhavana was in her room resting for most of this shift, she is pleasant on approach and when engaged. Bhavana has a slow and steady gait with her walker and is independent with all of her ADL's. Bhvaana has been adherent with all of her medications and req/rec tylenol for leg pain with a positive effect. Appetite has been good. Bhavana had a visit with the [facility] today which she reports she enjoyed. Denies SI/HI when asked by this senior technical writer but then stated I'm not safe to go home though . Staff will continue to monitor for safety and comfort.
[2023-07-08 16:02] VITALS: BP 138/94; PULSE 83; RESP 13; TEMP 36.4; O2SAT 93
[2023-07-08 20:00] VITALS: BP 117/83; PULSE 83; RESP 17; TEMP 36.6; O2SAT 95
[2023-07-08] MEDS: OLANZapine 10 MG TABLET PO (20:24)
[2023-07-08] MEDS: rOPINIRole HCL 1 MG TABLET PO (20:24)
[2023-07-08] MEDS: Gabapentin 600 MG TABLET PO (20:24)
[2023-07-08] MEDS: cloNIDine HCL 0.2 MG TABLET PO (20:24)
[2023-07-08] MEDS: Lithium Carbonate ER 450 MG TABLET.ER 1350 MG PO (20:25)
[2023-07-08 20:55] LABS: COVID-19 Test Negative (Negative); IDNOW Serial# 9DB6401D
[2023-07-09] MEDS: Omeprazole 20 MG CAPSULE.DR PO (05:51)
[2023-07-09 06:00] VITALS: BP 116/75; PULSE 76; RESP 16; TEMP 36.5; O2SAT 98
--- NOTE | 2023-07-09 07:04 | PC.NURSE ---
Patient slept through the night, no distress observed/reported, VSS, medication compliant, disposition per care team is inpatient bed search, labs completed/resulted, behavior non concerning, will continue to monitor.
[2023-07-09] MEDS: Cyanocobalamin (Vitamin B-12) 1,000 MCG TABLET 1000 MCG PO (08:25)
[2023-07-09] MEDS: valACYclovir HCL 1,000 MG TABLET 1000 MG PO ×2 (08:25→20:13)
[2023-07-09] MEDS: Ferrous Sulfate 324 MG TABLET.DR PO (08:25)
[2023-07-09] MEDS: Cholecalciferol (Vitamin D3) 25 MCG TABLET PO (08:25)
[2023-07-09] MEDS: Nicotine 14 MG PATCH.TD24 TRANSDERMA (08:25)
--- NOTE | 2023-07-09 12:19 | PC.NURSE ---
pt resting in room, calm and cooperative, respirations even and unlabored, requesting food and drink. Provided with brooks abner and crackers for the time being until lunch arrives
--- NOTE | 2023-07-09 15:46 | PC.NURSE ---
Calm and cooperative, out of room to common area watching t.v with other patients. Working on puzzle in room at this time. Denies SI states still wants to harm her neighbors.
--- NOTE | 2023-07-09 17:37 | MHC.CARE ---
[facility] Assessment was faxed to [facility], [facility] and [facility]. No facility said they were reviewing but will f/u tomorrow 07/10
[2023-07-09 20:10] VITALS: BP 154/79; PULSE 89; RESP 20; TEMP 37.2; O2SAT 93
[2023-07-09] MEDS: cloNIDine HCL 0.2 MG TABLET PO (20:13)
[2023-07-09] MEDS: rOPINIRole HCL 1 MG TABLET PO (20:13)
[2023-07-09] MEDS: OLANZapine 10 MG TABLET PO (20:13)
[2023-07-09] MEDS: Lithium Carbonate ER 450 MG TABLET.ER 1350 MG PO (20:13)
[2023-07-09] MEDS: Gabapentin 600 MG TABLET PO (20:13)
[2023-07-10 01:17] VITALS: BP 125/71; PULSE 80; RESP 18; TEMP 36.6; O2SAT 93
[2023-07-10] MEDS: Omeprazole 20 MG CAPSULE.DR PO (06:17)
[2023-07-10] MEDS: Ferrous Sulfate 324 MG TABLET.DR PO (08:50)
[2023-07-10] MEDS: Cyanocobalamin (Vitamin B-12) 1,000 MCG TABLET 1000 MCG PO (08:50)
[2023-07-10] MEDS: valACYclovir HCL 1,000 MG TABLET 1000 MG PO (08:50)
[2023-07-10] MEDS: Cholecalciferol (Vitamin D3) 25 MCG TABLET PO (08:50)
[2023-07-10] MEDS: Nicotine 14 MG PATCH.TD24 TRANSDERMA (08:50)
== END 2023-07-10 14:11 | disposition home or self-care (01) ==
PROVIDERS: Emergency Provider Internal Medicine
DX: F31.9 Bipolar disorder, unspecified (principal); F60.3 Borderline personality disorder; R45.850 Homicidal ideations; R45.851 Suicidal ideations; F43.10 Post-traumatic stress disorder, unspecified; F17.210 Nicotine dependence, cigarettes, uncomplicated; Z79.899 Other long term (current) drug therapy; Z20.822 Contact with and (suspected) exposure to COVID-19
CPT/HCPCS: 36415; 80053; 80143; 80178; 80179; 80307; 81003; 85025; 87635; 99285; S9485

== ENCOUNTER 2023-07-17 17:20 | Emergency (ER) | payer MEDICAID, OTHER, SELFPAY ==
[2023-07-17 17:31] VITALS: BP 144/82; BP 170/89; PULSE 86; PULSE 89; RESP 18; TEMP 37.2; O2SAT 93; O2SAT 95; BMI 33.4
[2023-07-17 18:26] VITALS: TEMP 37.2; O2SAT 94
--- NOTE | 2023-07-17 18:30 | PC.NURSE ---
Bhavana was BIBA after having SI with thoughts to OD on tylenol. Bhavana was calm and cooperative when she arrived and was compliant with changing over and providing a UA. Bhavana reports she feels safe in the hospital but may not when she is outside of here. Bhavana ambulates with a walker and was given a hospital issued one too utilize while she is here. Appetite is good and she requested crackers while waiting on dinner.
[2023-07-17 19:08] LABS: MANUAL DIFF FLAG NO
[2023-07-17 19:13] LABS: UPreg QC Valid YES; Urine Pregnancy NEGATIVE (NEGATIVE)
[2023-07-17 19:14] LABS: Basophils Absolute Auto 0.1 X10*3/uL (0.0-0.2); Basophils Percent Auto 0.9 % (0-2); Eosinophils Absolute Auto 0.2 X10*3/uL (0.0-0.4); Eosinophils Percent Auto 2.1 % (0-4); Hematocrit 44.3 % (37.0-47.0); Hemoglobin 14.4 g/dl (12.0-16.0); Imm Gran Abs Auto 0.02 X10*3/uL (0.00-0.03); Imm Gran Pct Auto 0.3 % (0.0-0.4); Lymphocytes Absolute Auto 2.9 X10*3/uL (1.2-4.9); Lymphocytes Percent Auto 36.7 % (20-40); Mean Corpuscular HGB Conc 32.5 g/dl (31.0-35.0); Mean Corpuscular Volume 95.3 fL (80.0-98.0); Mean Platelet Volume 9.8 fL (9.4-12.3); Monocytes Absolute Auto 0.4 X10*3/uL (0.1-1.2); Monocytes Percent Auto 4.8 % (2-11); Neutrophils Absolute Auto 4.4 x10*3/uL (2.0-8.3); Neutrophils Percent Auto 55.2 % (45-73); Platelet Count 222 X10*3/uL (160-400); Red Blood Count 4.65 X10*6/uL (4.20-5.50); Red Cell Distribution Width 11.9 % (11.0-16.0); White Blood Count 7.9 X10*3/uL (4.8-10.8)
[2023-07-17 19:19] LABS: Amphetamine Screen Urine Not Detected (Not Detect); Barbiturates, Urine Not Detected (Not Detect); Benzodiazepines Screen Urine Not Detected (Not Detect); Cannabinoid Screen Urine Not Detected (Not Detect); Cocaine Screen Urine Not Detected (Not Detect); Fentanyl, urine Not Detected (Not Detect); Opiate Screen Urine Not Detected (Not Detect); Phencyclidine Screen Urine Not Detected (Not Detect)
[2023-07-17 19:24] LABS: Ethanol < 10 mg/dL
[2023-07-17 19:25] LABS: Acetaminophen LAB < 17 mcg/mL (<30); Alanine Aminotransferase 20 U/L (0-31); Albumin Level 4.1 g/dL (3.5-5.0); Alkaline Phosphatase 66 U/L (39-117); Anion Gap 15 (12-20); Aspartate Amino Transferase 16 U/L (5-31); Bilirubin Total 0.1 mg/dL (0.0-1.0); Blood Urea Nitrogen 8 mg/dL (9-16); Calcium 9.7 mg/dL (8.4-10.2); Carbon Dioxide 25 mmol/L (22-29); Chloride 105 mmol/L (96-108); Creatinine Clr Calc Pharmacy 103.4; Estimated Glomerular Filt Rate > 60; Glucose Random 148 mg/dL (60-115); Potassium 3.4 mmol/L (3.3-5.1); Salicylate < 5.0 mg/dL (15-30); Sodium 142 mmol/L (135-145); Total Protein 6.9 g/dL (6.5-8.0)
--- NOTE | 2023-07-17 19:31 | ED_ITS ---
HPI - Psych General Chief Complaint: Psychiatric Symptoms Stated Complaint: CRISIS SI Time Seen by Provider: 07/17/23 18:06 Source: patient, EMS and RN notes reviewed Mode of arrival: EMS Limitations: no limitations History of Present Illness HPI Narrative: Patient is a 53-year-old female with history of bipolar 1 disorder, anxiety, drug induced psychotic disorder, cocaine use disorder, borderline personality disorder presenting to the emergency department with report of suicidal ideation. Patient reports that she has a plan to overdose on her Tylenol at home. Denies taking any Tylenol today. Patient reports increased stressors of arguments with her neighbors as well as several deaths in May of this year which have caused her increased depression and anxiety. Reports history of previous suicide attempts in the past with most recent 2 weeks prior. She denies any homicidal ideation, auditory or visual hallucinations. States that she has attempted respite twice which has not improved her symptoms. MD complaint: suicidal ideation and feels depressed Onset (ago): day(s) Duration: constant History of same: Yes Relieving factors: none Exacerbating factors: other (Arguing with neighbors) Associated psychiatric symptoms: depression Associated symptoms: denies other symptoms Treatments prior to arrival: other (Respite) If self harm: admits thoughts of self harm and has plan Details of plan: overdose on Tylenol Related Data Home Medications Medication Instructions Recorded Confirmed gabapentin 600 mg tablet 600 mg PO BEDTIME 04/12/23 07/18/23 lithium carbonate 450 mg 1,350 mg PO BEDTIME 05/14/23 07/18/23 tablet,extended release acetaminophen 500 mg tablet (Pain 1,000 mg PO Q8H PRN Pain 06/11/23 07/18/23 Relief Extra Strength (acetaminophen)) cyanocobalamin (vitamin B-12) 1,000 mcg PO DAILY 06/11/23 07/18/23 1,000 mcg tablet (Vitamin B-12) ipratropium 0.5 mg-albuterol 3 mg 3 ml inhalation RQ6H PRN Shortness 06/11/23 07/18/23 (2.5 mg base)/3 mL nebulization Of Breath Or Wheezing soln gabapentin 300 mg capsule 300 mg PO BID 07/09/23 07/18/23 Previous Rx's Medication Instructions Recorded albuterol sulfate 90 mcg/actuation 2 puff inhalation Q4H PRN 03/22/23 aerosol inhaler (Ventolin HFA) shortness of breath or wheezing #6.7 grams cholecalciferol (vitamin D3) 25 25 mcg PO DAILY #30 tabs 03/22/23 mcg (1,000 unit) tablet clonidine HCl 0.2 mg tablet 0.2 mg PO BEDTIME #30 tabs 03/22/23 ferrous sulfate 324 mg (65 mg 324 mg PO DAILY #30 tabs 03/22/23 iron) tablet,delayed release nicotine 14 mg/24 hr daily 14 mg transdermal DAILY #30 ea 03/22/23 transdermal patch olanzapine 10 mg tablet 10 mg PO BEDTIME #30 tabs 03/22/23 omeprazole 20 mg capsule,delayed 20 mg PO DAILY@0630 #30 caps 03/22/23 release ropinirole 1 mg tablet 1 mg PO BEDTIME #30 tabs 03/22/23 tiotropium bromide 18 mcg capsule 18 mcg inhalation RDAILY #20 03/22/23 with inhalation device (Spiriva inhalations with HandiHaler) Allergies Allergy/AdvReac Type Severity Reaction Status Date / Time aspirin Allergy Mild Anaphylaxis Verified 06/11/23 10:01 ampicillin Allergy Rash Verified 12/26/22 10:32 Penicillins Allergy Anaphylaxis Verified 03/15/23 17:49 latex AdvReac Rash Verified 03/15/23 17:49 Latex, Natural Rubber AdvReac Rash Verified 03/15/23 17:49 seafood AdvReac Stomach Verified 12/26/22 10:32 Upset Sulfa (Sulfonamide AdvReac Hives Verified 03/15/23 17:49 Antibiotics) Review of Systems 2 Review of Systems: As per HPI Yes all other systems are reviewed and are negative Constitutional: Constitutional: Reports as per HPI PMFSH Past Medical History Medical History COPD (chronic obstructive pulmonary disease) Chronic lung disease Neoplasm of parotid gland Depression 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 Drug abuse Bipolar I disorder Post traumatic stress disorder (PTSD) Tobacco use disorder FABIOLA (obstructive sleep apnea) Borderline personality disorder Intermittent explosive disorder Asthma exacerbation in COPD Herpes Tobacco use Bipolar disorder COPD (chronic obstructive pulmonary disease) Surgical History History of ankle surgery History of back surgery Hx of cholecystectomy History of appendectomy Family History Family History Mother COPD (chronic obstructive pulmonary disease) Social History Social History Household Members: None Household Members Other:: Senior Living in [place] Housing: Apartment Housing Other:: Sleeps on the couch at [facility] house Do you presently have visiting nurse or other home services: No Unable to assess alcohol history related to: Unknown Alcohol intake: current Alcohol intake frequency: holidays/special occasions only Alcohol type: beer and hard liquor Patient Tobacco Use Status: Current everyday Tobacco user Tobacco use type: Cigarette Cigarette Packs Per Day: 3 Cigarettes Per Day: 5 Years Smoked: 35 Smoked in Last 30 Days: Yes e-Cigarette/Vaping Use: Former Use Second Hand Smoke Exposure: No Use of substances other than those prescribed or required for medical reasons: No Substance Use Type: Crack/Cocaine Advance Directives: Yes Advance Directives on File: Yes Advance Directives Date on File: 06/17/22 service: No Current occupational status: unemployed and disabled Sexual orientation: Straight/Heterosexual Physical Exam 2 Vital Signs: Vital Signs: Last Vital Signs Temp 98.9 F 07/17/23 18:26 Pulse 89 07/17/23 17:31 Resp 14 07/18/23 06:00 BP 170/89 H 07/17/23 17:31 Pulse Ox 94 07/17/23 18:26 O2 Del Method Room Air 07/17/23 18:26 BMI result Body Mass Index 33.4 Const: General: cooperative, healthy appearing and no acute distress O rientation/consciousness: oriented to person, oriented to place, oriented to time and patient oriented x3 Limitations: no limitations HEENT: Other: Vital signs have been reviewed and appear to be correct. Blood pressure normal. Heart rate normal. Respiratory rate normal. Temperature normal. Oxygen saturation normal. Head: Yes normocephalic and Yes atraumatic Ears: external ears normal General nose exam: Normal external nose present Face and sinus: Yes face symmetric Mouth: oropharynx normal and moist mucous membranes Throat: Yes uvula midline Eyes: Pupils: Equal, round and reactive pupils present Neck: Neck: Yes normal visual inspection and Yes supple Resp: Effort & Inspection: normal respiratory effort and able to speak in complete sentences Auscultation: clear to auscultation bilaterally Cardio: Rate: regular rate Rhythm: regular rhythm Heart sounds: S1 normal heart sound present and S2 normal heart sound present GI: Palpation (GI): Soft to palpation and nontender Auscultation: n ormoactive bowel sounds : General: Yes no CVA tenderness Back/Spine/Pelvis: Back: no CVA tenderness Skin: General skin exam: elasticity normal and turgor normal Neuro: General: oriented to person, oriented to place, oriented to time, patient oriented x3, moves all extremities, no focal motor deficits and CN's II- XI intact bilaterally Cranial nerves: Yes Equal, round and reactive pupils present Cognition (Neuro): normal cognition Extrem: General: Yes full ROM, Yes no pedal edema and Yes no calf tenderness Psych: Appearance: grossly normal Mental Status: mental status grossly normal Speech and movement: Normal speech and movement present Affect: n ormal affect Attitude: cooperative Thought process: Normal thought process present Thought content: Suicidality present, no homicidality, no hallucinations and Depressive thoughts present Insight: Fair insight present (Psych) Judgement: Fair judgement present (Psych) Course Reevaluation(s) Reevaluation #1: July 18, 07:50 patient was signed out to me by Dr. Hollis, she is here for SI, she is bed search, she remained hemodynamically stable overnight no event reported. Continue voluntary bed search Reevaluation #2: seen by crisis cleared for d/c Time: 13:57 Medications Administered Generic Name Dose Route Start Last Admin Trade Name Ramoneq PRN Reason Stop Dose Admin Cyanocobalamin 1,000 mcg 07/18/23 09:00 07/18/23 10:21 Cyanocobalamin (Vitamin B-12) 1,000 Mcg Tablet PO 1,000 mcg DAILY TEJA Administration Ferrous Sulfate 324 mg 07/18/23 09:00 07/18/23 10:21 Ferrous Sulfate 324 Mg Tablet. PO 324 mg DAILY TEJA Administration Gabapentin 300 mg 07/18/23 09:00 07/18/23 10:21 Gabapentin 300 Mg Capsule PO 300 mg BID TEJA Administration Nicotine 14 mg 07/18/23 09:00 07/18/23 10:21 Nicotine 14 Mg Patch.Td24 TRANSDERMA 14 mg DAILY TEJA Administration Vitamin D 25 mcg 07/18/23 09:00 07/18/23 10:21 Cholecalciferol (Vitamin D3) 25 Mcg Tablet PO 25 mcg DAILY TEJA Administration Medical Decision Making Medical Decision Making [facility] Narrative: Patient is a 53-year-old female with history of bipolar 1 disorder, anxiety, drug induced psychotic disorder, cocaine use disorder, borderline personality disorder presenting to the emergency department with report of suicidal ideation. On exam patient is awake, A+Ox3, VS WNL, afebrile, normal neurological exam without focal deficits, RRR, LS CTA throughout, patient endorsing suicidal ideation with planned overdose on Tylenol, denying homicidal ideation or auditory or visual hallucinations. Given reported symptoms and physical exam findings, initial differential includes anxiety, depression, bipolar disorder. Labs within normal limits. Plan for care team eval once medically cleared. 21:44 Patient medically cleared, will place on physician observation for CARE team eval. Lab Data 07/17/23 18:57 07/17/23 18:57 Labs: Lab Results 07/17/23 Range/Units 18:57 WBC 7.9 (4.8-10.8) X10*3/uL RBC 4.65 (4.20-5.50) X10*6/uL Hgb 14.4 (12.0-16.0) g/dl Hct 44.3 (37.0-47.0) % MCV 95.3 (80.0-98.0) fL MCH 31.0 (27.0-33.0) pg MCHC 32.5 (31.0-35.0) g/dl RDW 11.9 (11.0-16.0) % Plt Count 222 (160-400) X10*3/uL MPV 9.8 (9.4-12.3) fL Immature Gran % (Auto) 0.3 (0.0-0.4) % Neut % (Auto) 55.2 (45-73) % Lymph % (Auto) 36.7 (20-40) % Leon % (Auto) 4.8 (2-11) % Eos % (Auto) 2.1 (0-4) % Baso % (Auto) 0.9 (0-2) % Lymph # (Auto) 2.9 (1.2-4.9) X10*3/uL Leon # (Auto) 0.4 (0.1-1.2) X10*3/uL Eos # (Auto) 0.2 (0.0-0.4) X10*3/uL Baso # (Auto) 0.1 (0.0-0.2) X10*3/uL Abs Immat Gran (auto) 0.02 (0.00-0.03) X10*3/uL Absolute Neuts (auto) 4.4 (2.0-8.3) x10*3/uL Absolute Nucleated RBC 0.000 (0.0-0.012) X10*3/uL Nucleated RBC % (auto) 0.0 (0.0-0.2) /100WBC Sodium 142 (135-145) mmol/L Potassium 3.4 (3.3-5.1) mmol/L Chloride 105 (96-108) mmol/L Carbon Dioxide 25 (22-29) mmol/L Anion Gap 15 (12-20) BUN 8 L (9-16) mg/dL Creatinine 0.71 (0.5-1.4) mg/dL Estim Creat Clear Calc 103.4 Estimated GFR > 60 Random Glucose 148 H (60-115) mg/dL Calcium 9.7 (8.4-10.2) mg/dL Total Bilirubin 0.1 (0.0-1.0) mg/dL AST 16 (5-31) U/L ALT 20 (0-31) U/L Alkaline Phosphatase 66 (39-117) U/L Total Protein 6.9 (6.5-8.0) g/dL Albumin 4.1 (3.5-5.0) g/dL Urine Color Yellow Urine Appearance Clear Urine pH 6.5 (5.0-9.0) Ur Specific [place] 1.010 (1.005-1.025) Urine Protein Negative (Neg-Trace) mg/dL Urine Glucose (UA) Negative (Negative) mg/dL Urine Ketones Negative (Negative) mg/dL Urine Blood Negative (Negative) Urine Nitrite Negative (Negative) Ur Leukocyte Esterase Negative (Negative) Urine RBC 0-2 (0-2) /HPF Urine WBC 6-10 (0-5) /HPF Ur Squamous Epith Cells >20 (0-2) /HPF Urine Bacteria 4+ (None Seen) Hyaline Casts 0-2 (0-2) /LPF Urine Test NEGATIVE (NEGATIVE) Salicylates < 5.0 L (15-30) mg/dL Urine Opiates Screen Not Detected (Not Detect) Urine Fentanyl Screen Not Detected (Not Detect) Acetaminophen < 17 (<30) mcg/mL Ur Barbiturates Screen Not Detected (Not Detect) Ur Phencyclidine Scrn Not Detected (Not Detect) Ur Amphetamines Screen Not Detected (Not Detect) U Benzodiazepines Scrn Not Detected (Not Detect) Urine Cocaine Screen Not Detected (Not Detect) U Marijuana (THC) Screen Not Detected (Not Detect) Ethyl Alcohol < 10 mg/dL Discharge Plan Discharge Clinical Impression: Depression Patient Disposition: Home, Self-Care Instructions: Depression (DC) Prescriptions: No Action ropinirole 1 mg Tablet 1 mg PO BEDTIME Qty: 30 0RF nicotine 14 mg/24 hr Patch 24 Hour 14 mg transdermal DAILY Qty: 30 0RF olanzapine 10 mg Tablet 10 mg PO BEDTIME Qty: 30 0RF clonidine HCl 0.2 mg Tablet 0.2 mg PO BEDTIME Qty: 30 0RF Protocol: Hold for SBP< HOLD for SBP < : 90 albuterol sulfate [Ventolin HFA] 90 mcg/actuation Hfa Aerosol Inhaler 2 puff inhalation Q4H PRN (Reason: shortness of breath or wheezing) Qty: 6.7 0RF Spiriva with HandiHaler 18 mcg Capsule, W/Inhalation Device 18 mcg inhalation RDAILY Qty: 20 0RF ferrous sulfate 324 mg (65 mg iron) Tablet,Delayed Release (Dr/Ec) 324 mg PO DAILY Qty: 30 0RF omeprazole 20 mg Capsule,Delayed Release(Dr/Ec) 20 mg PO DAILY@0630 Qty: 30 0RF cholecalciferol (vitamin D3) 25 mcg (1,000 unit) Tablet 25 mcg PO DAILY Qty: 30 0RF gabapentin 600 mg tablet 600 mg PO BEDTIME gabapentin 300 mg capsule 300 mg PO BID lithium carbonate 450 mg tablet extended release 1,350 mg PO BEDTIME cyanocobalamin (vitamin B-12) [Vitamin B-12] 1,000 mcg tablet 1,000 mcg PO DAILY acetaminophen [Pain Relief ES (acetaminophen)] 500 mg tablet 1,000 mg PO Q8H PRN (Reason: Pain) ipratropium-albuterol 0.5 mg-3 mg(2.5 mg base)/3 mL solution for nebulization 3 ml inhalation RQ6H PRN (Reason: Shortness Of Breath Or Wheezing) Referrals: Physician,Unknown J [Primary Care Provider] - Interventions: [place]-Suicide Risk Severity Scale Last Done: 07/18/23 10:32
--- NOTE | 2023-07-17 20:11 | PC.NURSE ---
Assumed care of pt. Pt lying on stretcher, eyes closed. No acute medical or behavioral concerns a this time. Respirations even and unlabored. No safety concerns at this time.
[2023-07-17 22:00] VITALS: RESP 14
--- NOTE | 2023-07-17 22:00 | PC.NURSE ---
Pt remains lying on stretcher. Care team present at bedside for evaluation and assessment. No acute medical or behavioral concerns at this time.
[2023-07-17 22:26] LABS: Appearance Urine Clear; Color Urine Yellow; Glucose Urine UA Negative (Negative); Leukocyte Esterase Urine Negative (Negative); Nitrite Urine Negative (Negative); PH 6.5 (5.0-9.0); Urine Blood Negative (Negative); Urine Ketones Negative (Negative); Urine Protein Negative (Neg-Trace)
[2023-07-17 22:39] LABS: Bacteria Urine 4+ (None Seen); Hyaline Casts Urine 0-2 /LPF (0-2); RBC Urine 0-2 /HPF (0-2); Squamous Epithelial Cell Urine >20 /HPF (0-2); UACC Culture Trigger YES
--- NOTE | 2023-07-17 23:02 | PC.NURSE ---
Assumed care of patient at 2245, patient sleeping at this time, respirations even and unlabored, no apparent distress. Pending CARE team disposition
[2023-07-18 06:00] VITALS: RESP 14
--- NOTE | 2023-07-18 08:56 | PHA.MEDREC ---
Pharmacy Consult ? Medication Reconciliation Pharmacy has completed the medication reconciliation. Reviewed med rec done by nursing
[2023-07-18] MEDS: Cyanocobalamin (Vitamin B-12) 1,000 MCG TABLET 1000 MCG PO (10:21)
[2023-07-18] MEDS: Nicotine 14 MG PATCH.TD24 TRANSDERMA (10:21)
[2023-07-18] MEDS: Cholecalciferol (Vitamin D3) 25 MCG TABLET PO (10:21)
[2023-07-18] MEDS: Gabapentin 300 MG CAPSULE PO (10:21)
[2023-07-18] MEDS: Ferrous Sulfate 324 MG TABLET.DR PO (10:21)
--- NOTE | 2023-07-18 14:04 | PC.NURSE ---
Discharge plan reviewed with patient who verbalized understanding
== END 2023-07-18 14:04 | disposition home or self-care (01) ==
PROVIDERS: Emergency Provider Internal Medicine
DX: F33.1 Major depressive disorder, recurrent, moderate (principal); R45.851 Suicidal ideations; F41.1 Generalized anxiety disorder; F43.0 Acute stress reaction; F17.210 Nicotine dependence, cigarettes, uncomplicated; Z71.6 Tobacco abuse counseling; Z79.899 Other long term (current) drug therapy
CPT/HCPCS: 36415; 80053; 80143; 80179; 80307; 81001; 81025; 85025; 87086; 99285; S9485

== ENCOUNTER 2023-07-19 02:22 | Inpatient (IN) | payer OTHER, MEDICAID, SELFPAY ==
--- NOTE | 2023-07-19 | ECG_ITS ---
Test Reason : OVERDOSE Blood Pressure : / mmHG Vent. Rate : 082 BPM Atrial Rate : 082 BPM P-R Int : 140 ms QRS Dur : 080 ms QT Int : 390 ms P-R-T Axes : 026 018 021 degrees QTc Int : 455 ms Normal sinus rhythm Nonspecific T wave abnormality Abnormal ECG When compared with ECG of 19-JUL-2023 03:28, Nonspecific T wave abnormality now evident in Anterior leads Referred By: Maninder Jett Electronically Signed By:KEMAR BADILLO
[2023-07-19 02:34] VITALS: BP 155/94; PULSE 100; RESP 20; TEMP 37.2; O2SAT 93; BMI 34.9
--- NOTE | 2023-07-19 02:35 | ECG_ITS ---
Test Reason : overdose Blood Pressure : / mmHG Vent. Rate : 082 BPM Atrial Rate : 082 BPM P-R Int : 144 ms QRS Dur : 082 ms QT Int : 408 ms P-R-T Axes : 042 043 035 degrees QTc Int : 476 ms Normal sinus rhythm Normal ECG When compared with ECG of 11-JUN-2023 12:39, Nonspecific T wave abnormality no longer evident in Anterolateral leads Referred By: Sonia Hendrix Electronically Signed By:KEMAR BADILLO
--- NOTE | 2023-07-19 02:49 | PC.NURSE ---
Called poison control, advised activated charcoal and labs . Provider made aware.
[2023-07-19] MEDS: Activated charcoaL 50 GM/240 ML ORAL.SUSP 100 GM PO (02:57)
--- NOTE | 2023-07-19 03:05 | PC.NURSE ---
Pt refusing to drink 2nd bottle of activated charcoal. Provider Simeon made aware.
--- NOTE | 2023-07-19 03:10 | PC.NURSE ---
Pt now refusing to drink the rest of the 1st bottle. Approximately 5 sips taken by pt and pt states I cant do it! Provider made aware.
[2023-07-19 03:19] LABS: MANUAL DIFF FLAG NO
[2023-07-19 03:20] LABS: Basophils Absolute Auto 0.1 X10*3/uL (0.0-0.2); Eosinophils Absolute Auto 0.1 X10*3/uL (0.0-0.4); Eosinophils Percent Auto 1.5 % (0-4); Hematocrit 43.5 % (37.0-47.0); Hemoglobin 14.4 g/dl (12.0-16.0); Imm Gran Abs Auto 0.02 X10*3/uL (0.00-0.03); Imm Gran Pct Auto 0.2 % (0.0-0.4); Lymphocytes Absolute Auto 3.4 X10*3/uL (1.2-4.9); Lymphocytes Percent Auto 37.1 % (20-40); Mean Corpuscular HGB Conc 33.1 g/dl (31.0-35.0); Mean Corpuscular Hemoglobin 31.2 pg (27.0-33.0); Mean Corpuscular Volume 94.2 fL (80.0-98.0); Mean Platelet Volume 9.9 fL (9.4-12.3); Monocytes Absolute Auto 0.6 X10*3/uL (0.1-1.2); Monocytes Percent Auto 5.9 % (2-11); Neutrophils Percent Auto 54.3 % (45-73); Platelet Count 240 X10*3/uL (160-400); Red Blood Count 4.62 X10*6/uL (4.20-5.50); Red Cell Distribution Width 11.7 % (11.0-16.0); White Blood Count 9.3 X10*3/uL (4.8-10.8)
--- NOTE | 2023-07-19 03:24 | ED_ITS ---
HPI - Overdose General Chief Complaint: Overdose Stated Complaint: OD SI Time Seen by Provider: 07/19/23 02:34 Source: patient Mode of arrival: EMS History of Present Illness HPI Narrative: 53-year-old female who is brought in by EMS on a Section 12 after taking 15-500 mg tablets of acetaminophen tonight. She states that she woke up and the voices in her head told her to hurt herself. Patient otherwise denies any shortness of breath or chest pain but endorses AVH. Related Data Home Medications Medication Instructions Recorded Confirmed gabapentin 600 mg tablet 600 mg PO BEDTIME 04/12/23 07/18/23 lithium carbonate 450 mg 1,350 mg PO BEDTIME 05/14/23 07/18/23 tablet,extended release acetaminophen 500 mg tablet (Pain 1,000 mg PO Q8H PRN Pain 06/11/23 07/18/23 Relief Extra Strength (acetaminophen)) cyanocobalamin (vitamin B-12) 1,000 mcg PO DAILY 06/11/23 07/18/23 1,000 mcg tablet (Vitamin B-12) ipratropium 0.5 mg-albuterol 3 mg 3 ml inhalation RQ6H PRN Shortness 06/11/23 07/18/23 (2.5 mg base)/3 mL nebulization Of Breath Or Wheezing soln gabapentin 300 mg capsule 300 mg PO BID 07/09/23 07/18/23 Previous Rx's Medication Instructions Recorded albuterol sulfate 90 mcg/actuation 2 puff inhalation Q4H PRN 03/22/23 aerosol inhaler (Ventolin HFA) shortness of breath or wheezing #6.7 grams cholecalciferol (vitamin D3) 25 25 mcg PO DAILY #30 tabs 03/22/23 mcg (1,000 unit) tablet clonidine HCl 0.2 mg tablet 0.2 mg PO BEDTIME #30 tabs 03/22/23 ferrous sulfate 324 mg (65 mg 324 mg PO DAILY #30 tabs 03/22/23 iron) tablet,delayed release nicotine 14 mg/24 hr daily 14 mg transdermal DAILY #30 ea 03/22/23 transdermal patch olanzapine 10 mg tablet 10 mg PO BEDTIME #30 tabs 03/22/23 omeprazole 20 mg capsule,delayed 20 mg PO DAILY@0630 #30 caps 03/22/23 release ropinirole 1 mg tablet 1 mg PO BEDTIME #30 tabs 03/22/23 tiotropium bromide 18 mcg capsule 18 mcg inhalation RDAILY #20 03/22/23 with inhalation device (Spiriva inhalations with HandiHaler) Allergies Allergy/AdvReac Type Severity Reaction Status Date / Time aspirin Allergy Mild Anaphylaxis Verified 07/19/23 02:34 ampicillin Allergy Rash Verified 07/19/23 02:34 Penicillins Allergy Anaphylaxis Verified 07/19/23 02:34 latex AdvReac Rash Verified 07/19/23 02:34 Latex, Natural Rubber AdvReac Rash Verified 07/19/23 02:34 seafood AdvReac Stomach Verified 07/19/23 02:34 Upset Sulfa (Sulfonamide AdvReac Hives Verified 07/19/23 02:34 Antibiotics) Review of Systems 2 Review of Systems: Pertinent positives and negatives as stated in HPI [facility] Past Medical History Source: nursing notes reviewed Medical History COPD (chronic obstructive pulmonary disease) Chronic lung disease Neoplasm of parotid gland Depression 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 Drug abuse Bipolar I disorder Post traumatic stress disorder (PTSD) Tobacco use disorder FABIOLA (obstructive sleep apnea) Borderline personality disorder Intermittent explosive disorder Asthma exacerbation in COPD Herpes Tobacco use Bipolar disorder COPD (chronic obstructive pulmonary disease) Surgical History History of ankle surgery History of back surgery Hx of cholecystectomy History of appendectomy Family History Family History Mother COPD (chronic obstructive pulmonary disease) Social History Social History Household Members: None Household Members Other:: [facility] in [place] Housing: Apartment Housing Other:: Sleeps on the couch at [facility] house Do you presently have visiting nurse or other home services: No Unable to assess alcohol history related to: Unknown Alcohol intake: never Patient Tobacco Use Status: Current everyday Tobacco user Tobacco use type: Cigarette Cigarette Packs Per Day: 3 Cigarettes Per Day: 5 Years Smoked: 35 e-Cigarette/Vaping Use: Former Use Second Hand Smoke Exposure: No Substance Use Type: Crack/Cocaine Advance Directives: Yes Advance Directives on File: Yes Advance Directives Date on File: 06/17/22 Patient : No service: No Current occupational status: unemployed and disabled Sexual orientation: Straight/Heterosexual Physical Exam 2 Vital Signs: Vital Signs: Last Vital Signs Temp 98.9 F 07/19/23 02:34 Pulse 100 07/19/23 02:34 Resp 20 07/19/23 02:34 BP 155/94 H 07/19/23 02:34 Pulse Ox 93 07/19/23 02:34 O2 Del Method Room Air 07/19/23 02:34 BMI result Body Mass Index 34.9 VITAL SIGNS: Reviewed. GENERAL: Well developed, well nourished, in no acute distress. HEAD: Normocephalic/atraumatic EYES: PERRLA, EOMI EARS: Ext canals without abnormality NOSE: Nares patent bilateral OROPHARYNX: no oral lesions noted, posterior pharynx clear NECK: Supple, no adenopathy LUNGS: Normal breath sounds. No adventitious sounds or accessory muscle use. SpO2<93> CARDIOVASCULAR: Regular rate and rhythm without noted murmurs, no JVD or lower extremity edema. ABDOMEN: Soft, non-tender, non-distended with bowel sounds. No rigidity. No guarding. No palpable masses or hernias noted MUSCULOSKELETAL: No tenderness, deformities, or effusions noted on gross inspection. EXTREMITIES: No cyanosis, clubbing or edema. SKIN: Inspection of the skin reveals no rashes NEUROLOGIC: Alert and oriented x 4. Strength and sensation to light touch were grossly intact x 4. Medications Administered Discontinued Medications Generic Name Dose Route Start Last Admin Trade Name Freq PRN Reason Stop Dose Admin Charcoal 100 gm 07/19/23 02:49 07/19/23 02:57 Activated Charcoal 50 Gm/240 Ml Oral.Susp PO 07/19/23 02:50 50 gm ONCE ONE Administration Medical Decision Making Medical Decision Making MDM Narrative: 53-year-old female with history and clinical presentation consistent with intentional overdose of 7500 mg of Tylenol. We discussed this with poison Control immediately who confirms that we should proceed with activated charcoal, however patient is refusing to take the activated charcoal and initial Tylenol level is 71. I reviewed remaining investigation and hematologic indices are grossly within normal limits as there is no leukocytosis/left shift/anemia or thrombocytopenia. Chemistry indices are grossly within normal limits, there is no STEFAN and no electrolyte or liver enzyme abnormalities. Urinalysis is contaminated with squamous epithelial cells without wbc's therefore my interpretation is this is not a urinary tract infection. Toxicology is only significant for the elevated acetaminophen level. EKG is not significant for any QT/QRS/QTC prolongation. Loading dose of NAC has been ordered. 0408: I discussed case with inpatient hospitalist who accepts admission. Differential Diagnosis Differential Diagnoses: The differential diagnosis associated with the presentation includes Please see the discussion above Admission/Observation Consideration of admission/observation: Escalation of care including admission/observation considered Please see the discussion above Consult Healthcare Provider Management of the patient was discussed with: Hospitalist Please see the discussion above Lab Data MDM Lab Attestation statement: I reviewed the patient's lab results. Please see the discussion above 07/19/23 03:15 07/19/23 03:15 Labs: Lab Results 07/19/23 07/19/23 Range/Units 03:15 03:20 WBC 9.3 (4.8-10.8) X10*3/uL RBC 4.62 (4.20-5.50) X10*6/uL Hgb 14.4 (12.0-16.0) g/dl Hct 43.5 (37.0-47.0) % MCV 94.2 (80.0-98.0) fL MCH 31.2 (27.0-33.0) pg MCHC 33.1 (31.0-35.0) g/dl RDW 11.7 (11.0-16.0) % Plt Count 240 (160-400) X10*3/uL MPV 9.9 (9.4-12.3) fL Immature Gran % (Auto) 0.2 (0.0-0.4) % Neut % (Auto) 54.3 (45-73) % Lymph % (Auto) 37.1 (20-40) % [place] % (Auto) 5.9 (2-11) % Eos % (Auto) 1.5 (0-4) % Baso % (Auto) 1.0 (0-2) % Lymph # (Auto) 3.4 (1.2-4.9) X10*3/uL [place] # (Auto) 0.6 (0.1-1.2) X10*3/uL Eos # (Auto) 0.1 (0.0-0.4) X10*3/uL Baso # (Auto) 0.1 (0.0-0.2) X10*3/uL Abs Immat Gran (auto) 0.02 (0.00-0.03) X10*3/uL Absolute Neuts (auto) 5.0 (2.0-8.3) x10*3/uL Absolute Nucleated RBC 0.000 (0.0-0.012) X10*3/uL Nucleated RBC % (auto) 0.0 (0.0-0.2) /100WBC Sodium 139 (135-145) mmol/L Potassium 3.9 (3.3-5.1) mmol/L Chloride 103 (96-108) mmol/L Carbon Dioxide 23 (22-29) mmol/L Anion Gap 17 (12-20) BUN 8 L (9-16) mg/dL Creatinine 0.76 (0.5-1.4) mg/dL Estim Creat Clear Calc 98.8 Estimated GFR > 60 Random Glucose 129 H (60-115) mg/dL Calcium 10.0 (8.4-10.2) mg/dL Total Bilirubin 0.3 (0.0-1.0) mg/dL AST 17 (5-31) U/L ALT 21 (0-31) U/L Alkaline Phosphatase 73 (39-117) U/L Total Protein 7.1 (6.5-8.0) g/dL Albumin 4.3 (3.5-5.0) g/dL Urine Color Yellow Urine Appearance Clear Urine pH 6.0 (5.0-9.0) Ur Specific [place] 1.015 (1.005-1.025) Urine Protein Negative (Neg-Trace) mg/dL Urine Glucose (UA) Negative (Negative) mg/dL Urine Ketones Negative (Negative) mg/dL Urine Blood Negative (Negative) Urine Nitrite Negative (Negative) Ur Leukocyte Esterase Trace H (Negative) Urine RBC 0-2 (0-2) /HPF Urine WBC 0-5 (0-5) /HPF Ur Squamous Epith Cells 6-10 (0-2) /HPF Urine Bacteria 2+ (None Seen) Hyaline Casts 0-2 (0-2) /LPF Salicylates < 5.0 L (15-30) mg/dL Urine Opiates Screen Not Detected (Not Detect) Urine Fentanyl Screen Not Detected (Not Detect) Acetaminophen 71 H* (<30) mcg/mL Ur Barbiturates Screen Not Detected (Not Detect) Ur Phencyclidine Scrn Not Detected (Not Detect) Ur Amphetamines Screen Not Detected (Not Detect) U Benzodiazepines Scrn Not Detected (Not Detect) Urine Cocaine Screen Not Detected (Not Detect) U Marijuana (THC) Screen Not Detected (Not Detect) Independent Interpretation I performed an independent interpretation of an: EKG Interpretation: sinus rhythm, HR-82, no STEMI, CA/QRS/QTC is within normal limits. External Record Review External record reviewed: Outpatient record, Prior outpatient labs and Prior outpatient radiology Chronic Conditions Patient?s care impacted by: Other Bipolar Critical Care Time Critical Care Time Critical Care Time: Yes Total Critical Care Time: 45 Attestation: I personally attest to this time spent taking care of the patient. Discharge Plan Discharge Clinical Impression: Suicide attempt, Overdose on Tylenol Patient Disposition: Admitted As Inpatient Prescriptions: No Action ropinirole 1 mg Tablet 1 mg PO BEDTIME Qty: 30 0RF nicotine 14 mg/24 hr Patch 24 Hour 14 mg transdermal DAILY Qty: 30 0RF olanzapine 10 mg Tablet 10 mg PO BEDTIME Qty: 30 0RF clonidine HCl 0.2 mg Tablet 0.2 mg PO BEDTIME Qty: 30 0RF Protocol: Hold for SBP< HOLD for SBP < : 90 albuterol sulfate [Ventolin HFA] 90 mcg/actuation Hfa Aerosol Inhaler 2 puff inhalation Q4H PRN (Reason: shortness of breath or wheezing) Qty: 6.7 0RF Spiriva with HandiHaler 18 mcg Capsule, W/Inhalation Device 18 mcg inhalation RDAILY Qty: 20 0RF ferrous sulfate 324 mg (65 mg iron) Tablet,Delayed Release (Dr/Ec) 324 mg PO DAILY Qty: 30 0RF omeprazole 20 mg Capsule,Delayed Release(Dr/Ec) 20 mg PO DAILY@0630 Qty: 30 0RF cholecalciferol (vitamin D3) 25 mcg (1,000 unit) Tablet 25 mcg PO DAILY Qty: 30 0RF gabapentin 600 mg tablet 600 mg PO BEDTIME gabapentin 300 mg capsule 300 mg PO BID lithium carbonate 450 mg tablet extended release 1,350 mg PO BEDTIME cyanocobalamin (vitamin B-12) [Vitamin B-12] 1,000 mcg tablet 1,000 mcg PO DAILY acetaminophen [Pain Relief ES (acetaminophen)] 500 mg tablet 1,000 mg PO Q8H PRN (Reason: Pain) ipratropium-albuterol 0.5 mg-3 mg(2.5 mg base)/3 mL solution for nebulization 3 ml inhalation RQ6H PRN (Reason: Shortness Of Breath Or Wheezing)
[2023-07-19 03:30] LABS: Appearance Urine Clear; Color Urine Yellow; Glucose Urine UA Negative (Negative); Leukocyte Esterase Urine Trace (Negative); Nitrite Urine Negative (Negative); Specific Gravity - Urine 1.015 (1.005-1.025); UMIC TRIGGER UACC YES; Urine Blood Negative (Negative); Urine Ketones Negative (Negative); Urine Protein Negative (Neg-Trace)
[2023-07-19 03:35] LABS: Bacteria Urine 2+ (None Seen); Hyaline Casts Urine 0-2 /LPF (0-2); RBC Urine 0-2 /HPF (0-2); WBC Urine 0-5 /HPF (0-5)
[2023-07-19 03:37] LABS: Alanine Aminotransferase 21 U/L (0-31); Albumin Level 4.3 g/dL (3.5-5.0); Alkaline Phosphatase 73 U/L (39-117); Anion Gap 17 (12-20); Aspartate Amino Transferase 17 U/L (5-31); Bilirubin Total 0.3 mg/dL (0.0-1.0); Blood Urea Nitrogen 8 mg/dL (9-16); Carbon Dioxide 23 mmol/L (22-29); Chloride 103 mmol/L (96-108); Creatinine Clr Calc Pharmacy 98.8; Estimated Glomerular Filt Rate > 60; Glucose Random 129 mg/dL (60-115); Potassium 3.9 mmol/L (3.3-5.1); Sodium 139 mmol/L (135-145); Total Protein 7.1 g/dL (6.5-8.0)
[2023-07-19 03:41] LABS: Amphetamine Screen Urine Not Detected (Not Detect); Barbiturates, Urine Not Detected (Not Detect); Benzodiazepines Screen Urine Not Detected (Not Detect); Cannabinoid Screen Urine Not Detected (Not Detect); Cocaine Screen Urine Not Detected (Not Detect); Fentanyl, urine Not Detected (Not Detect); Opiate Screen Urine Not Detected (Not Detect); Phencyclidine Screen Urine Not Detected (Not Detect)
[2023-07-19 03:49] LABS: Salicylate < 5.0 mg/dL (15-30)
[2023-07-19 03:52] LABS: Acetaminophen LAB 71 mcg/mL (<30)
--- NOTE | 2023-07-19 04:01 | PC.NURSE ---
assumed care of patient at 0315
--- NOTE | 2023-07-19 04:14 | P.HPHOSP_ITS ---
History of Present Illness Date of Service: 07/19/23 Chief Complaint: Overdose This is a 53-year-old female with pertinent history of mood disorder, FABIOLA on CPAP, COPD not on home oxygen, gastroesophageal reflux disease, tobacco use disorder who was brought in to the emergency department after consuming about 15 tablets of 500 mg acetaminophen. Patient states she took the tablets as she wanted to kill herself. She admits that a voice in her head to her to do so. Patient denies fever, chills, chest discomfort, palpitations, shortness of breath, abdominal pain, changes in urinary or bowel habits. No homicidal ideations In the emergency department, acetaminophen level was found to be elevated Review of Systems 2 Constitutional: Constitutional: Reports fatigue Cardiovascular: Cardiovascular: Reports no additional cardiovascular complaints Respiratory: Respiratory: Reports no additional respiratory complaints Gastrointestinal: Gastrointestinal: Reports no additional gastrointestinal complaints Genitourinary: Genitourinary: Reports no additional female genitourinary complaints Endocrine: Endocrine: Reports fatigue PMFSH Medical History COPD (chronic obstructive pulmonary disease) Chronic lung disease Neoplasm of parotid gland Depression 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 Drug abuse Bipolar I disorder Post traumatic stress disorder (PTSD) Tobacco use disorder FABIOLA (obstructive sleep apnea) Borderline personality disorder Intermittent explosive disorder Asthma exacerbation in COPD Herpes Tobacco use Bipolar disorder COPD (chronic obstructive pulmonary disease) Family History Mother COPD (chronic obstructive pulmonary disease) Surgical History History of ankle surgery History of back surgery Hx of cholecystectomy History of appendectomy Social History Household Members: None Household Members Other:: [facility] in [place] Housing: Apartment Housing Other:: Sleeps on the couch at [facility] house Do you presently have visiting nurse or other home services: No Unable to assess alcohol history related to: Unknown Alcohol intake: never Patient Tobacco Use Status: Current everyday Tobacco user Tobacco use type: Cigarette Cigarette Packs Per Day: 3 Cigarettes Per Day: 5 Years Smoked: 35 e-Cigarette/Vaping Use: Former Use Second Hand Smoke Exposure: No Substance Use Type: Crack/Cocaine Advance Directives: Yes Advance Directives on File: Yes Advance Directives Date on File: 06/17/22 Patient : No service: No Current occupational status: unemployed and disabled Sexual orientation: Straight/Heterosexual Meds Allergies Allergy/AdvReac Type Severity Reaction Status Date / Time aspirin Allergy Mild Anaphylaxis Verified 07/19/23 02:34 ampicillin Allergy Rash Verified 07/19/23 02:34 Penicillins Allergy Anaphylaxis Verified 07/19/23 02:34 latex AdvReac Rash Verified 07/19/23 02:34 Latex, Natural Rubber AdvReac Rash Verified 07/19/23 02:34 seafood AdvReac Stomach Verified 07/19/23 02:34 Upset Sulfa (Sulfonamide AdvReac Hives Verified 07/19/23 02:34 Antibiotics) Active Medications: Current Medications Enoxaparin Sodium (Enoxaparin Sodium 40 Mg/0.4 Ml Syringe) 40 mg SUBCUT Q24H [facility] Acetylcysteine 14,288.1 mg/ (Dextrose) 271.4405 mls @ 200 mls/hr IV ONCE ONE Stop: 07/19/23 05:32 Melatonin (Melatonin 3 Mg Tablet) 6 mg PO BEDTIME PRN PRN Reason: Insomnia Ondansetron HCl (Ondansetron Hcl 4 Mg/2 Ml Vial) 4 mg IVPUSH Q8H PRN PRN Reason: Nausea and Vomiting Sodium Chloride (0.9 % Sodium Chloride Flush 3 Ml Syringe) 3 ml IVFLUSH QSHIFT [facility] Home Medications Medication Instructions Recorded Confirmed Last Taken Type gabapentin 600 mg tablet 600 mg PO BEDTIME 04/12/23 07/18/23 06/10/23 History lithium carbonate 450 mg 1,350 mg PO BEDTIME 05/14/23 07/18/23 06/10/23 History tablet,extended release acetaminophen 500 mg tablet (Pain 1,000 mg PO Q8H PRN Pain 06/11/23 07/18/23 Unknown History Relief Extra Strength (acetaminophen)) cyanocobalamin (vitamin B-12) 1,000 mcg PO DAILY 06/11/23 07/18/23 06/11/23 09:00 History 1,000 mcg tablet (Vitamin B-12) ipratropium 0.5 mg-albuterol 3 mg 3 ml inhalation RQ6H PRN Shortness 06/11/23 07/18/23 Unknown History (2.5 mg base)/3 mL nebulization Of Breath Or Wheezing soln gabapentin 300 mg capsule 300 mg PO BID 07/09/23 07/18/23 Unknown History Physical Exam 2 Vital Signs and Narrative: Vital Signs: Last Vital Signs Temp 98.9 F 07/19/23 02:34 Pulse 100 07/19/23 02:34 Resp 20 07/19/23 02:34 BP 155/94 H 07/19/23 02:34 Pulse Ox 93 07/19/23 02:34 O2 Del Method Room Air 07/19/23 02:34 BMI result Body Mass Index 34.9 Middle-aged female lying in bed in no distress Neck supple, no JVD Regular rate and rhythm, S1-S2 heard Regular breath sounds bilaterally, no wheezing or crackles appreciated Abdomen soft nontender, no guarding, no rigidity Patient is awake, alert and oriented to self, place, time and person ; no focal motor deficit Psych: Normal mood No pedal edema Results Labs 07/19/23 03:15 07/19/23 03:15 Labs: Laboratory Results - last 24 hr 07/19/23 07/19/23 03:15 03:20 MCV 94.2 MCH 31.2 MCHC 33.1 RDW 11.7 Plt Count 240 MPV 9.9 Immature Gran % (Auto) 0.2 Neut % (Auto) 54.3 Lymph % (Auto) 37.1 [place] % (Auto) 5.9 Eos % (Auto) 1.5 Baso % (Auto) 1.0 Lymph # (Auto) 3.4 [place] # (Auto) 0.6 Eos # (Auto) 0.1 Baso # (Auto) 0.1 Abs Immat Gran (auto) 0.02 Absolute Neuts (auto) 5.0 Absolute Nucleated RBC 0.000 Nucleated RBC % (auto) 0.0 Anion Gap 17 Estim Creat Clear Calc 98.8 Estimated GFR > 60 Random Glucose 129 H Calcium 10.0 Total Bilirubin 0.3 AST 17 ALT 21 Alkaline Phosphatase 73 Total Protein 7.1 Albumin 4.3 Urine Color Yellow Urine Appearance Clear Urine pH 6.0 Ur Specific [place] 1.015 Urine Protein Negative Urine Glucose (UA) Negative Urine Ketones Negative Urine Blood Negative Urine Nitrite Negative Ur Leukocyte Esterase Trace H Urine RBC 0-2 Urine WBC 0-5 Ur Squamous Epith Cells 6-10 Urine Bacteria 2+ Hyaline Casts 0-2 Salicylates < 5.0 L Urine Opiates Screen Not Detected Urine Fentanyl Screen Not Detected Acetaminophen 71 H* Ur Barbiturates Screen Not Detected Ur Phencyclidine Scrn Not Detected Ur Amphetamines Screen Not Detected U Benzodiazepines Scrn Not Detected Urine Cocaine Screen Not Detected U Marijuana (THC) Screen Not Detected Assessment and Plan (1) Suicide attempt: Status: Acute (2) Overdose on Tylenol: Status: Acute Plan This is a 53-year-old female with pertinent history of mood disorder, FABIOLA on CPAP, COPD not on home oxygen, gastroesophageal reflux disease, tobacco use disorder who was brought in to the emergency department after consuming about 15 tablets of 500 mg acetaminophen. #. Tylenol overdose. Will admit patient with cardiac monitoring. Initiating N acetyl cystine 20 hour IV protocol. Monitor serum acetaminophen, liver enzymes and electrolytes. #. Suicidal attempt. Patient on 1:1 observation. Consulting care team. #.? Mood disorder: Continue home mood stabilizers #.? GERD on PPI #.? FABIOLA on CPAP at bedtime #.? Obesity: Counseled regarding diet and exercise #. Tobacco use disorder: Offering nicotine patch in the hospital #. COPD. No exacerbation during admission. Continue home inhalers Med rec pending DVT prophylaxis: Lovenox Regular diet Full code Admit as inpatient and will require two night minimum hospital stay for IV NAC Time Spent With Patient Time: Total time managing care of this patient today ____ minutes. Quality Stroke Does the patient have a stroke diagnosis?: No VTE Prior VTE?: No VTE Risk Level:: Medical - moderate - high VTE Device Contraindication: Treatment Not Indicated VTE Drug Contraindication: N/A - Med Ordered
[2023-07-19 05:01] VITALS: BP 136/89; PULSE 76; RESP 18; TEMP 37.5; O2SAT 93
--- NOTE | 2023-07-19 05:18 | PC.NURSE ---
pt speaking clear full sentences in no apparent distress. pt up to and from commode with one person assist nearby. medicated per mar. on panel monitor, vital signs updated, call castillo within reach. plan of care ongoing
--- NOTE | 2023-07-19 05:44 | MHC.EDTECH ---
All patient belongings are locked in ED POD LOCKER 11 Patient was changes over into hospital attire
[2023-07-19 06:07] LABS: INTERNATIONAL NORM RATIO 0.9 (0.9-1.1); Prothrombin Time 11.4 SEC (11.1-13.3)
[2023-07-19] MEDS: Nicotine 14 MG PATCH.TD24 TRANSDERMA (06:24)
--- NOTE | 2023-07-19 07:20 | PC.NURSE ---
Assumed care of patient at 0700. Patient resting quietly in bed at this time. IV meds running per dec. Ate about 25% of breakfast. No apparent distress at this time.
[2023-07-19] MEDS: Enoxaparin Sodium 40 MG/0.4 ML SYRINGE SUBCUT (08:13)
--- NOTE | 2023-07-19 09:11 | PC.NURSE ---
Spoke with poison control. Gave update. They made recommendation to draw Tylenol, LFTs, and BMP after current bag of acetylcysteine is completed prior to starting the next bag. Then redraw again 14 hours into the new bag. Dr. Jett notified.
--- NOTE | 2023-07-19 09:31 | PC.NURSE ---
A & O x3. Resting in bed. 1:1 staff member at bedside. remains on bedside monitor. Acetylcyteine running per dec. Lung sounds diminshed bilaterally in lower lobes, sats remain around 92-93%. Abd soft & non tender.
--- NOTE | 2023-07-19 09:45 | MHC.CM.PN ---
PATIENT LIVES IN APARTMENT LOCALLY SHE USES CPAP BUT NO HOME O2 DURING DAY HCP IS ON FILE AND VERIFIED. DC PLAN WITH BE PENDING CRISIS EVALUATION ONCE MEDICALLY STABLE. CM FOLLOWING
[2023-07-19 11:17] LABS: Acetaminophen LAB < 17 mcg/mL (<30)
--- NOTE | 2023-07-19 11:56 | PHA.MEDREC ---
Pharmacy Consult ? Medication Reconciliation Pharmacy has completed the medication reconciliation. Spoke to patient at bedside, she noted she takes 1 gabapentin in the morning and 3 at bedtime. She also stated she does not take 3 lithium at bedtime but takes 1 TID. When I asked her when she last took her medications, she hesitated to answer. I asked if it has been a while and she said yes.
--- NOTE | 2023-07-19 12:26 | PC.NURSE ---
Addendum entered by Elsa Small 07/19/23 13:43: assumed care of pt at 1220; pt calm/cooperative. pt states she has intermittent thoughts of si no plan at this time. sitter at bedside. vss. nsr on monitor 85 bpm. Original Note: Dr. Jett to bedside; to start acetylcysteine infusion.
--- NOTE | 2023-07-19 15:29 | PC.NURSE ---
no changes to previous assessment by this rn. pt resting comfortably in stretcher sitter at bedside. nsr on monitor 90 bpm.
--- NOTE | 2023-07-19 15:50 | PC.NURSE ---
reached out to dr. jones as pt requesting pain medication for headache.
[2023-07-19 16:06] LABS: Alanine Aminotransferase 22 U/L (0-31); Albumin Level 4.3 g/dL (3.5-5.0); Alkaline Phosphatase 65 U/L (39-117); Anion Gap 19 (12-20); Aspartate Amino Transferase 15 U/L (5-31); Bilirubin Total 0.3 mg/dL (0.0-1.0); Blood Urea Nitrogen 8 mg/dL (9-16); Calcium 9.6 mg/dL (8.4-10.2); Carbon Dioxide 25 mmol/L (22-29); Chloride 101 mmol/L (96-108); Creatinine Clr Calc Pharmacy 101.5; Estimated Glomerular Filt Rate > 60; Glucose Random 113 mg/dL (60-115); Sodium 141 mmol/L (135-145); Total Protein 6.6 g/dL (6.5-8.0)
[2023-07-19] MEDS: traMADoL HCL 50 MG TABLET PO (16:15)
[2023-07-19 16:29] VITALS: BP 140/69; PULSE 80; RESP 17; TEMP 36.9; O2SAT 92
--- NOTE | 2023-07-19 16:30 | HO.PM.IMPN ---
Subjective Subjective Date of Service: 07/19/23 Interval History: No acute issues since admit. Still voices suicidal ideation. Good response to N-acetylcysteine. .. Tylenol less than 17 Review of Systems Denies chest pain Denies shortness of breath Denies nausea vomiting diarrhea Denies fever chills Physical Exam Vital Signs: Vital Signs: Last Vital Signs Temp 99.5 F 07/19/23 05:01 Pulse 76 07/19/23 05:01 Resp 18 07/19/23 05:01 BP 136/89 07/19/23 05:01 Pulse Ox 93 07/19/23 05:01 O2 Del Method Room Air 07/19/23 05:01 BMI result Body Mass Index 34.9 Const: Other: Awake alert oriented x3 no acute distress Resp: Other: Clear to auscultation bilaterally no rales rhonchi or wheezes Cardio: Other: No S4; positive S1-S2; no S3 murmurs rubs or gallop GI: Other: Soft nontender nondistended normoactive bowel sounds Extrem: Other: No edema bilat Objective Data Active Medications Enoxaparin Sodium (Enoxaparin Sodium 40 Mg/0.4 Ml Syringe) 40 mg SUBCUT Q24H [facility] Last Admin: 07/19/23 08:13 Dose: 40 mg Documented By: OSCAR Acetylcysteine 9,600 mg/ (Dextrose) 1,048 mls @ 62.523 mls/hr IV ONCE ONE Stop: 07/20/23 02:45 Last Admin: 07/19/23 12:28 Dose: 62.52 mls/hr Documented By: DYLON Melatonin (Melatonin 3 Mg Tablet) 6 mg PO BEDTIME PRN PRN Reason: Insomnia Nicotine (Nicotine 14 Mg Patch.Td24) 14 mg TRANSDERMA DAILY [facility] Last Admin: 07/19/23 06:24 Dose: 14 mg Documented By: ONEIDA Ondansetron HCl (Ondansetron Hcl 4 Mg/2 Ml Vial) 4 mg IVPUSH Q8H PRN PRN Reason: Nausea and Vomiting Sodium Chloride (0.9 % Sodium Chloride Flush 3 Ml Syringe) 3 ml IVFLUSH QSHIFT [facility] Last Admin: 07/19/23 16:29 Dose: Not Given Documented By: DYLON Non-Admin Reason: IV Running Tramadol HCl (Tramadol Hcl 50 Mg Tablet) 50 mg PO Q6H PRN PRN Reason: Headache Last Admin: 07/19/23 16:15 Dose: 50 mg Documented By: DYLON Labs 07/19/23 03:15 07/19/23 10:46 Labs: Laboratory Results - last 24 hr 07/19/23 07/19/23 07/19/23 03:15 03:20 05:27 MCV 94.2 MCH 31.2 MCHC 33.1 RDW 11.7 Plt Count 240 MPV 9.9 Immature Gran % (Auto) 0.2 Neut % (Auto) 54.3 Lymph % (Auto) 37.1 Swain % (Auto) 5.9 Eos % (Auto) 1.5 Baso % (Auto) 1.0 Lymph # (Auto) 3.4 Swain # (Auto) 0.6 Eos # (Auto) 0.1 Baso # (Auto) 0.1 Abs Immat Gran (auto) 0.02 Absolute Neuts (auto) 5.0 Absolute Nucleated RBC 0.000 Nucleated RBC % (auto) 0.0 PT 11.4 INR 0.9 Anion Gap 17 Estim Creat Clear Calc 98.8 Estimated GFR > 60 Random Glucose 129 H Calcium 10.0 Total Bilirubin 0.3 AST 17 ALT 21 Alkaline Phosphatase 73 Total Protein 7.1 Albumin 4.3 Urine Color Yellow Urine Appearance Clear Urine pH 6.0 Ur Specific [place] 1.015 Urine Protein Negative Urine Glucose (UA) Negative Urine Ketones Negative Urine Blood Negative Urine Nitrite Negative Ur Leukocyte Esterase Trace H Urine RBC 0-2 Urine WBC 0-5 Ur Squamous Epith Cells 6-10 Urine Bacteria 2+ Hyaline Casts 0-2 Salicylates < 5.0 L Urine Opiates Screen Not Detected Urine Fentanyl Screen Not Detected Acetaminophen 71 H* Ur Barbiturates Screen Not Detected Ur Phencyclidine Scrn Not Detected Ur Amphetamines Screen Not Detected U Benzodiazepines Scrn Not Detected Urine Cocaine Screen Not Detected U Marijuana (THC) Screen Not Detected 07/19/23 10:46 MCV MCH MCHC RDW Plt Count MPV Immature Gran % (Auto) Neut % (Auto) Lymph % (Auto) Swain % (Auto) Eos % (Auto) Baso % (Auto) Lymph # (Auto) Swain # (Auto) Eos # (Auto) Baso # (Auto) Abs Immat Gran (auto) Absolute Neuts (auto) Absolute Nucleated RBC Nucleated RBC % (auto) PT INR Anion Gap 19 Estim Creat Clear Calc 101.5 Estimated GFR > 60 Random Glucose 113 Calcium 9.6 Total Bilirubin 0.3 AST 15 ALT 22 Alkaline Phosphatase 65 Total Protein 6.6 Albumin 4.3 Urine Color Urine Appearance Urine pH Ur Specific [place] Urine Protein Urine Glucose (UA) Urine Ketones Urine Blood Urine Nitrite Ur Leukocyte Esterase Urine RBC Urine WBC Ur Squamous Epith Cells Urine Bacteria Hyaline Casts Salicylates Urine Opiates Screen Urine Fentanyl Screen Acetaminophen < 17 Ur Barbiturates Screen Ur Phencyclidine Scrn Ur Amphetamines Screen U Benzodiazepines Scrn Urine Cocaine Screen U Marijuana (THC) Screen Assessment and Plan (1) Overdose on Tylenol: Status: Acute (2) Suicide attempt: Status: Acute (3) Asthma: Status: Acute Plan This is a 53-year-old female with pertinent history of mood disorder, FABIOLA on CPAP, COPD not on home oxygen, gastroesophageal reflux disease, tobacco use disorder who was brought in to the emergency department after consuming about 15 tablets of 500 mg acetaminophen; good response to N-acetylcysteine 1.Tylenol overdose -repeat Tylenol level less than 17 -LFT stable -repeat Tylenol level and LFTs. .. 2.Suicidal attempt -one-to-one sitter -psych consult in a.m. 3.COPD. -no acute issues -continue outpatient therapies Lovenox Regular diet Requires ongoing hospitalization to complete an acetylcysteine protocol and psych evaluation Time Spent With Patient Time: Total time managing care of this patient today ____ minutes. Quality Stroke Does the patient have a stroke diagnosis?: No VTE Prior VTE?: No VTE Risk Level:: Medical - moderate - high VTE Device Contraindication: Treatment Not Indicated VTE Drug Contraindication: N/A - Med Ordered
--- NOTE | 2023-07-19 17:16 | PC.NURSE ---
call from poison control; recommend to repeat ekg now. also to repeat tylenol levels, pt/inr and hepatic panel 2 hours prior to completion of acetyl. drip (expected 0500 07/20/23). Dr. Jett aware.
--- NOTE | 2023-07-19 19:51 | PC.NURSE ---
Pt aox4 at the bedside. Reports chest pain, 08/09. NSR on monitor with HR 90. EKG done and reviewed by MD. Pt ok to transport to room 487 per md. Pt aware of plan of care.
[2023-07-19 22:15] VITALS: BP 118/78; PULSE 88; RESP 20; TEMP 37; O2SAT 91
[2023-07-19 22:21] VITALS: BMI 46.0
[2023-07-19] MEDS: 0.9 % Sodium Chloride Flush 3 ML SYRINGE IVFLUSH (22:22)
[2023-07-19 22:38] VITALS: RESP 20
[2023-07-19 23:30] VITALS: BP 127/81; PULSE 86; RESP 20; TEMP 36.3; O2SAT 89
[2023-07-20 03:20] LABS: Prothrombin Time 11.7 SEC (11.1-13.3)
[2023-07-20 03:28] LABS: Alanine Aminotransferase 18 U/L (0-31); Albumin Level 3.9 g/dL (3.5-5.0); Alkaline Phosphatase 62 U/L (39-117); Anion Gap 13 (12-20); Aspartate Amino Transferase 13 U/L (5-31); Bilirubin Total 0.3 mg/dL (0.0-1.0); Blood Urea Nitrogen 10 mg/dL (9-16); Calcium 9.7 mg/dL (8.4-10.2); Carbon Dioxide 27 mmol/L (22-29); Chloride 104 mmol/L (96-108); Creatinine Clr Calc Pharmacy 139.1; Estimated Glomerular Filt Rate > 60; Glucose Random 115 mg/dL (60-115); Sodium 140 mmol/L (135-145); Total Protein 6.5 g/dL (6.5-8.0)
[2023-07-20 04:00] VITALS: BP 154/97; PULSE 91; RESP 18; TEMP 36.9; O2SAT 92
[2023-07-20 04:22] LABS: Acetaminophen LAB < 17 mcg/mL (<30)
--- NOTE | 2023-07-20 05:00 | PC.NURSE ---
Call received from Poison control wireless sales representative [employer], labs reviewed , per rep she will be closing off the case.
[2023-07-20 07:19] VITALS: BP 130/75; PULSE 98; RESP 17; O2SAT 88
[2023-07-20 08:06] LABS: Acetaminophen LAB < 17 mcg/mL (<30)
[2023-07-20 08:07] LABS: Alanine Aminotransferase 18 U/L (0-31); Albumin Level 3.8 g/dL (3.5-5.0); Alkaline Phosphatase 61 U/L (39-117); Anion Gap 15 (12-20); Aspartate Amino Transferase 14 U/L (5-31); Bilirubin Total 0.3 mg/dL (0.0-1.0); Blood Urea Nitrogen 10 mg/dL (9-16); Calcium 9.4 mg/dL (8.4-10.2); Carbon Dioxide 26 mmol/L (22-29); Chloride 103 mmol/L (96-108); Creatinine Clr Calc Pharmacy 148.6; Estimated Glomerular Filt Rate > 60; Glucose Random 102 mg/dL (60-115); Potassium 3.9 mmol/L (3.3-5.1); Sodium 140 mmol/L (135-145); Total Protein 6.4 g/dL (6.5-8.0)
[2023-07-20] MEDS: Nicotine 14 MG PATCH.TD24 TRANSDERMA (08:49)
[2023-07-20] MEDS: Enoxaparin Sodium 40 MG/0.4 ML SYRINGE SUBCUT (08:51)
[2023-07-20] MEDS: traMADoL HCL 50 MG TABLET PO (08:54)
--- NOTE | 2023-07-20 09:52 | MHC.CM.PN ---
Addendum entered by Shreya Siegel RN 07/20/23 10:47: PER HOSPITALIST PT WILL BE MEDICALLY CLEARED TODAY AND TRANSFER TO INPT PSYCH. Original Note: EMR REVIEWED, PT S/P TYLENOL OD AND 1:1 SITTERADRYAN MET W/PT WHO IS STILL REPORTING +SI D/T HER BROTHERS RECENT AND WOULD LIKE PSYCH IPLOC ON M5, PT WILL BE SEEN BY CARE TEAM ONCE MEDICALLY CLEARED, CM WILL CONT TO FOLLOW D/C NEEDS.
--- NOTE | 2023-07-20 09:55 | MHC.CARE ---
Patient seen by the CARE team, patient appears to meet inpt LOC. Placement is pending.
[2023-07-20 11:11] LABS: COVID-19 Test Negative (Negative); IDNOW Serial# 08D9AD1C
[2023-07-20 11:18] VITALS: BP 136/87; PULSE 93; RESP 18; O2SAT 91
--- NOTE | 2023-07-20 13:17 | PM.DS ---
DS: Providers Provider Date of Service: 07/20/23 Date of admission: 07/19/23 04:11 Date of discharge: 07/20/23 Primary care physician: Unknown Physician Consults: 07/20/23 07:21 Consult to Care Team Stat Comment: Reason for consultation: APAP OD...medically cleared.Suicidal ideation DS: Diagnosis Discharge Diagnosis (1) Overdose on Tylenol: Status: Acute (2) Suicide attempt: Status: Acute (3) Asthma: Status: Acute DS: Summary Hospital Course Hospital Course: 53-year-old female with pertinent history of mood disorder, FABIOLA on CPAP, COPD not on home oxygen, gastroesophageal reflux disease, tobacco use disorder who was brought in to the emergency department after consuming about 15 tablets of 500 mg acetaminophen. Patient states she took the tablets as she wanted to kill herself. She admits that a voice in her head to her to do so. Patient denies fever, chills, chest discomfort, palpitations, shortness of breath, abdominal pain, changes in urinary or bowel habits. No homicidal ideations Hospital course Admitted to telemetry. Poison Control contacted. .. Mucomyst protocol initiated. This was tolerated well by the patient and serial labs showed normalization of Tylenol level without elevation of LFTs. At this time she is medically cleared and accepted by the psychiatric unit. She will be transferred when appropriate Time Spent with Patient Time attestation: Total time managing care of this patient today ____ minutes. Discharge coordination time: Greater than 30 minutes Quality: Safe Use of Opioids Does Pt have an Active Cancer Diagnosis on the Problem List?: No Quality: Stroke Does the patient have a stroke diagnosis?: No Physical Exam Vital Signs: Vital Signs: Last Vital Signs Temp 98.4 F 07/20/23 04:00 Pulse 93 07/20/23 11:18 Resp 18 07/20/23 11:18 BP 136/87 07/20/23 11:18 Pulse Ox 91 L 07/20/23 11:18 O2 Del Method Room Air 07/20/23 11:18 BMI result Body Mass Index 46.0 Const: Other: Awake alert oriented x3 no acute distress Resp: Other: Clear to auscultation bilaterally no rales rhonchi or wheezes Cardio: Other: No S4; positive S1-S2; no S3 murmurs rubs or gallop GI: Other: Soft nontender nondistended normoactive bowel sounds Extrem: Other: No edema bilat DS: Data Data Completed and Pending Completed studies during hospitalization [Text1]: Procedures Assistance with Respiratory Ventilation, Less than 24 Consecutive Hours, Continuous Positive Airway Pressure (06/11/23) Drainage of Left Parotid Gland, Percutaneous Approach, Diagnostic (11/09/21) Drainage of Neck, Percutaneous Approach, Diagnostic (03/17/22) Excision of Left Parotid Gland, Percutaneous Approach, Diagnostic (03/17/22) Introduction of Remdesivir Anti-infective into Peripheral Vein, Percutaneous Approach, [employer] 5 (06/01/22) Labs on day of discharge: Laboratory Results - last 24 hr 07/19/23 07/20/23 07/20/23 10:46 03:04 06:44 PT 11.7 INR 1.0 Sodium 141 140 140 Potassium 4.0 4.0 3.9 Chloride 101 104 103 Carbon Dioxide 25 27 26 Anion Gap 19 13 15 BUN 8 L 10 10 Creatinine 0.74 0.63 0.59 Estim Creat Clear Calc 101.5 139.1 148.6 Estimated GFR > 60 > 60 > 60 Random Glucose 113 115 102 Calcium 9.6 9.7 9.4 Total Bilirubin 0.3 0.3 0.3 AST 15 13 14 ALT 22 18 18 Alkaline Phosphatase 65 62 61 Total Protein 6.6 6.5 6.4 L Albumin 4.3 3.9 3.8 Acetaminophen < 17 < 17 COVID-19 (END[facility]) COVID-19 Clin Com 07/20/23 10:45 PT INR Sodium Potassium Chloride Carbon Dioxide Anion Gap BUN Creatinine Estim Creat Clear Calc Estimated GFR Random Glucose Calcium Total Bilirubin AST ALT Alkaline Phosphatase Total Protein Albumin Acetaminophen COVID-19 ([facility]) Negative COVID-19 Clin Com See Note Discharge Plan Discharge Anticipated Discharge Date/Time: 07/20/23 13:11 Patient Disposition: Xfer Other Discharge Diagnosis: Tylenol overdose Referrals: Physician,Unknown J [Primary Care Provider] - 1 Week Discharge Medications: New nicotine 14 mg/24 hr Patch 24 Hour 14 mg transdermal DAILY Qty: 28 0RF Continued ropinirole 1 mg Tablet 1 mg PO BEDTIME Qty: 30 0RF nicotine 14 mg/24 hr Patch 24 Hour 14 mg transdermal DAILY Qty: 30 0RF olanzapine 10 mg Tablet 10 mg PO BEDTIME Qty: 30 0RF clonidine HCl 0.2 mg Tablet 0.2 mg PO BEDTIME Qty: 30 0RF Protocol: Hold for SBP< HOLD for SBP < : 90 albuterol sulfate [Ventolin HFA] 90 mcg/actuation Hfa Aerosol Inhaler 2 puff inhalation Q4H PRN (Reason: shortness of breath or wheezing) Qty: 6.7 0RF Spiriva with HandiHaler 18 mcg Capsule, W/Inhalation Device 18 mcg inhalation RDAILY Qty: 20 0RF ferrous sulfate 324 mg (65 mg iron) Tablet,Delayed Release (Dr/Ec) 324 mg PO DAILY Qty: 30 0RF omeprazole 20 mg Capsule,Delayed Release(Dr/Ec) 20 mg PO DAILY@0630 Qty: 30 0RF cholecalciferol (vitamin D3) 25 mcg (1,000 unit) Tablet 25 mcg PO DAILY Qty: 30 0RF gabapentin 600 mg tablet 900 mg PO BEDTIME gabapentin 300 mg capsule 300 mg PO DAILY lithium carbonate 450 mg tablet extended release 450 mg PO TID cyanocobalamin (vitamin B-12) [Vitamin B-12] 1,000 mcg tablet 1,000 mcg PO DAILY ipratropium-albuterol 0.5 mg-3 mg(2.5 mg base)/3 mL solution for nebulization 3 ml inhalation RQ6H PRN (Reason: Shortness Of Breath Or Wheezing) Discharge Orders: Discharge Order (Routine); Ordered 07/20/23 Ordered By: Maninder Jett Diet: Advance to usual diet Activity on Discharge: As tolerated Stand Alone Forms: Patient Portal Discharge page Care Plan Goals: As per M 5 Health Concerns: Continue all meds as ordered Plan of Treatment: Further plan of treatment as per receiving physician Assessment: See discharge summary
== END 2023-07-20 14:27 | disposition other institution (70) | DRG 817 ==
LOC: HO.ED 04:17 → HO.EDOVER 05:04 → HO.IMC 17:10
PROVIDERS: Admitting Provider Student in an Organized Health Care Education/Training Program; Emergency Provider Student in an Organized Health Care Education/Training Program; Visit Provider Hospitalist
DX: T39.1X2A Poisoning by 4-Aminophenol derivatives, intentional self-harm, initial encounter (principal); E66.9 Obesity, unspecified; F17.210 Nicotine dependence, cigarettes, uncomplicated; F43.10 Post-traumatic stress disorder, unspecified; J44.9 Chronic obstructive pulmonary disease, unspecified; G47.33 Obstructive sleep apnea (adult) (pediatric); Z20.822 Contact with and (suspected) exposure to COVID-19; Z68.42 Body mass index [BMI] 45.0-49.9, adult; Z71.6 Tobacco abuse counseling; Z91.040 Latex allergy status; Z79.899 Other long term (current) drug therapy
CPT/HCPCS: 36415; 80053; 80143; 80179; 80307; 81001; 85025; 85610; 87635; 93005; 94660; 99285; J0132; J1650; S9485

== ENCOUNTER → 2023-07-19 02:52 | Outpatient (BNV) | payer MEDICAID, SELFPAY | PROVIDERS: Emergency Provider Student in an Organized Health Care Education/Training Program; Visit Provider Student in an Organized Health Care Education/Training Program | DX: T39.1X1A Poisoning by 4-Aminophenol derivatives, accidental (unintentional), initial encounter (principal); T14.91XA Suicide attempt, initial encounter; J45.909 Unspecified asthma, uncomplicated | CPT/HCPCS: 99222; 99239; 99499 ==

== ENCOUNTER 2023-07-20 14:35 | Inpatient (IN) | payer OTHER, SELFPAY ==
--- OUTSIDE RECORDS SUMMARY | 2023-07-20 14:38 | XMS_ITS | Patient Health Record ---
Author Name Unknown Organization [facility] Address [address], [place] [id number] Care Team Providers Care Wind Turbine Service Technician Name Role Phone Perez Melejuhi Unavailable [phone] Jessika Altamirano Unavailable [phone] Mavis Frank Unavailable [phone] Karely Tirado Unavailable [phone] Cristina Bal Unavailable [phone] BarnetIsaura Unavailable [phone] SHS, Nursing Unavailable [phone] CasGarcia asencio Unavailable [phone] Ruchi Soto Unavailable Kathie Moctezuma Unavailable [phone] SHSH, CHW Unavailable [phone] Claudia Retana Unavailable [phone] PROBLEMS Type Condition ICD9-CM Code GUE62-LQ Code Onset Dates Condition Status W/U Status Risk SNOMED Code Notes Problem Severe persistent asthma with (acute) exacerbation J45.51 confirmed 376220701 Problem Chronic obstructive pulmonary disease, unspecified J44.9 confirmed 29448825 Problem Cocaine abuse, uncomplicated F14.10 confirmed 50490660 Problem Post-traumati c stress disorder, chronic F43.12 confirmed 44202015 Problem Suicidal ideations R45.851 confirmed 318258240 Problem Borderline personality disorder F60.3 confirmed Problem 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 ALLERGIES Allergen (clinical drug ingredient) Drug/Non Drug Allergy documented on EMR Reaction Allergy Type Onset Date Status bee sting anaphylaxis Non Drug Allergy Active Sulfa anaphylaxis Drug Allergy Activ e diphenhydramine Benadryl([facility] Code:[address]-60 ) anaphylaxis Drug Allergy Active penicillin anaphylaxis Drug Allergy Acti ve aspirin aspirin(ND Code:[address]-66 ) anaphylaxis Drug Allergy Active levofloxacin levoFLOXacin(ND Code:[address]-54 ) hives Drug Allergy Active tramadol traMADol(ND Code:[address]-24 ) hives Drug Allergy Active ENCOUNTERS from 1971 to 2023-07-20 Encounter Location Date Provider Diagnosis [address] [id number] Jul, Mike [address] [id number] Jul, Mike [address] [id number] Jul, [facility] for [address] [id number] May, Mike Malone Encounter for screening for infectious and parasitic diseases, unspecified Z11.9 ; Chronic obstructive pulmonary disease, unspecified J44.9 ; Bipolar disorder, current episode mixed, moderate F31.62 ; Malignant neoplasm of parotid gland C07 ; Nicotine dependence, unspecified, uncomplicated F17.200 and Cocaine abuse, uncomplicated F14.[address] [id number] May, Mike Balder [address] [id number] May, [facility] [address] [id number] May, [facility] [address] [id number] May, [facility] [address] [id number] 15 May, [address] [id number] 14 May, [address] [id number] 14 May, [address] [id number] May, [facility] [address] [place] [address] [id number] 08 May, 2023 Mike Malone Bipolar disorder, current episode mixed, moderate F31.62 ; Malignant neoplasm of parotid gland C07 ; Encounter for screening for infectious and parasitic diseases, unspecified Z11.9 ; Sheltered homelessness Z59.01 ; Candidiasis, unspecified B37.9 ; Chronic obstructive pulmonary disease, unspecified J44.9 and Obstructive sleep apnea (adult) (pediatric) G47.[address] [id number] May, Mike [facility] [address] [id number] May, Mike [address] [id number] May, Mike [address] [id number] May, Mike [address] [id number] Apr, Mike [address] [id number] Apr, Mike [address] [id number] Apr, [facility] [address] [id number] Apr, [address] [id number] Apr, Mike Malone [address] [id number] Apr, Mike Malone [address] [id number] Apr, Mike Malone [address] [id number] Apr, Mike Malone [address] [id number] Apr, Mike Malone Bipolar disorder, current episode mixed, moderate F31.[address] [id number] Mar, Mike Malone [address] [id number] Mar, Mike Malone [address] [id number] Mar, Mike Malone Bipolar disorder, current episode mixed, moderate F31.[address] [id number] Mar, Mike Malone [facility] [address] [place] [address] SERVICES FOR [place]OMELESS [place] [id number] Mar, Mike Malone Encounter for screening for infectious and parasitic diseases, unspecified Z11.9 ; Chronic obstructive pulmonary disease, unspecified J44.9 ; Sheltered homelessness Z59.01 ; Fibromyalgia M79.7 ; Bipolar disorder, current episode mixed, moderate F31.62 ; Unspecified convulsions R56.9 and Malignant neoplasm of parotid gland C07 [address] [id number] Mar, Jessika Altamirano [address] [id number] Mar, Mike Malone Bipolar disorder, current episode mixed, moderate F31.62 and 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 [id number] February, Mike Malone [address] [id number] February, Mike Malone [address] [id number] February, Jessika Altamirano Bipolar disorder, current episode mixed, moderate F31.[address] [id number] February, Jessika Altamirano [address] [id number] February, Mike Malone [address] [id number] February, [facility] Altamir[facility] [address] [id number] February, Jessika Altamirano [address] [id number] February, [facility] [address] [id number] February, Jessika Pruittvey Bipolar disorder, current episode mixed, moderate F31.[address] [id number] Jan, [facility] [address] [id number] Jan, Mike [address] [id number] Jan, Mike Malone [address] [id number] Jan, [facility] [address] [id number] Jan, Mike Malone [facility] [address] [id number] Jan, Mike Malone Encounter for screening for infectious and parasitic diseases, unspecified Z11.9 ; Malignant neoplasm of parotid gland C07 ; Other custodial (current) drug therapy Z79.899 ; Sheltered homelessness Z59.01 and Bipolar disorder, current episode mixed, moderate F31.[address] [id number] Jan, [facility] [address] [id number] Jan, Mike Malone [address] [id number] Dec, [facility] [address] [id number] Dec, Mike [address] [id number] Dec, Mike Malone [address] [id number] Dec, [address] [id number] Dec, [facility] [address] [id number] Dec, [address] [id number] Dec, [address] [id number] 17 Dec, [address] [id number] 16 Dec, 2022 [facility] [address] [place] [address] [id number] 09 Dec, 2022 Mike Malone Encounter for screening for infectious and parasitic diseases, unspecified Z11.9 ; Cough R05 ; Immunization not carried out because of patient decision for unspecified reason Z28.20 ; Fibromyalgia M79.7 ; Malignant neoplasm of parotid gland C07 and Bipolar disorder, current episode mixed, moderate F31.[address] [id number] 07 Dec, [address] [id number] Dec, [address] [id number] 28 Dec, [address] [id number] 15 Dec, 2022 [facility] [address] [id number] 14 Dec, 2022 Mike Malone Encounter for screening for infectious and parasitic diseases, unspecified Z11.9 ; Poisoning by other drugs, medicaments and biological substances, accidental (unintentional), initial encounter T50.991A ; Malignant neoplasm of parotid gland C07 ; Sheltered homelessness Z59.01 and Bipolar disorder, current episode mixed, moderate F31.[address] [id number] 14 Dec, [address] [id number] 11 Dec, [address] [id number] 07 Dec, [address] [id number] Dec, Mike [address] [id number] 06 Dec, [address] [id number] Dec, Mike [address] [id number] Oct, Mike [address] [id number] Oct, Mike [address] [id number] Oct, Mike [address] [id number] Oct, Mike [address] [id number] Oct, Mike [address] [id number] Oct, Mike [address] [id number] Oct, Mike [facility] [address] [place] [address] [id number] 10 Oct, 2022 Mike Malone Encounter for screening for infectious and parasitic diseases, unspecified Z11.9 ; Bipolar disorder, current episode mixed, moderate F31.62 ; Suicidal ideations R45.851 ; Sheltered homelessness Z59.01 and Malignant neoplasm of parotid gland C07 [address] [id number] 10 Oct, 2022 Mike [facility] [address] [place] [address] [id number] 10 Oct, [address] [id number] Oct, Mike [address] [id number] Sep, Mike [address] [id number] Sep, Mike [address] [id number] Sep, [address] [id number] 18 Sep, [address] [id number] 16 Sep, [address] [id number] 14 Sep, [address] [id number] 14 Sep, [address] [id number] 13 Sep, 2022 [facility] [address] [id number] 13 Sep, 2022 Mike [facility] Encounter for screening for infectious and parasitic diseases, unspecified Z11.9 ; Neoplasm of unspecified behavior of bone, soft tissue, and skin D49.2 ; Bipolar disorder, current episode mixed, moderate F31.62 ; Fibromyalgia M79.7 ; Unspecified convulsions R56.9 ; Sheltered homelessness Z59.01 and Atypical squamous cells of undetermined significance on cytologic smear of cervix (ASC-US) R87.[address] [id number] 13 Sep, [address] [id number] 13 Sep, [address] [id number] 13 Sep, [address] [id number] 11 Sep, [address] [id number] Aug, [address] [id number] Aug, [address] [id number] Aug, [address] [id number] 09 Aug, [address] [id number] Aug, Mike [address] [id number] Aug, [address] [place], [place] [id number] Aug, Mike Balder [facility] [address] [place] [address] [id number] Aug, Mike Balder [facility] [address] [place] [address] [id number] Aug, Mike Balder [facility] [address] [place] [address] [id number] Jul, Mike Balder [facility] [address] [place] [address] [id number] Jul, Mike Balder [facility] [address] [place] [address] [id number] Jul, Mike Balder [facility] [address] [place] [address] [id number] Jul, Mike Balder [facility] [address] [place] [address] [id number] Jul, Mike Balder [facility] [address] [place] [address] [id number] Jul, Mike Balder [facility] [address] [place] [address] [id number] Jul, Mike Balder [facility] [address] [place] [address] [id number] Jul, Mike Balder [facility] [address] [place] [address] [id number] Jul, Mike Balder [facility] [address] [place] [address] [id number] Jul, Mike Balder [address] [id number] Jul, Mike Balder [facility] [address] [place] [address] [id number] Jul, Mike [facility] [address] [place] [address] [id number] Jul, Mike Balder [facility] [address] [place] [address] [id number] Jul, Mike Balder [facility] [address] [place] [address] [id number] Jul, Mike Balder [facility] [address] [place] [address] [id number] Jul, Mike Balder [facility] [address] [place] [address] [id number] Jul, Mike [facility] [address] [place] [address] [id number] 27 Jul, 2022 Mike Balder [facility] [address] [place] [address] [id number] Jul, Mike Balder [facility] [address] [place] [address] [id number] Jul, Mike Balder [facility] [address] [place] [address] [id number] 23 Jul, 2022 Mike Balder [facility] [address] [place] [address] [id number] 23 Jul, 2022 Mike Balder [facility] [address] [place] [address] [id number] 20 Jul, 2022 Mike Balder [facility] [address] [place] [address] [id number] 20 Jul, 2022 Mike Balder [facility] [address] [place] [address] [id number] 19 Jul, 2022 Mike Balder [facility] [address] [place] [address] [id number] 14 Jul, 2022 Mike Balder [facility] [address] [place] [address] [id number] 14 Jul, 2022 Mike [facility]der [facility] [address] [place] [address] [id number] 07 Jul, 2022 Mike Balder [facility] [address] [place] [address] [id number] May, Mike Balder [facility] [address] [place] [address] [id number] May, Mike Balder [facility] [address] [place] [address] [id number] May, Mike [facility] [address] [place] [address] [id number] Apr, Mike Balder [facility] [address] [place] [address] [id number] Apr, Mike Bal[facility] [address] [place] [address] [id number] Apr, Mike Balder [facility] [address] [place] [address] [id number] Apr, Mike Balder [facility] [address] [place] [address] [id number] Apr, Mike Balder [facility] [address] [place] [address] [id number] Apr, Mike Balder [address] [id number] 14 Apr, 2022 Mike Gabrielder [address] [id number] 14 Apr, 2022 Mike Gabrielder [address] [id number] Apr, Mike Malone [address] [id number] Mar, Mike Malone [address] [id number] Mar, Nursing [address] [id number] Mar, Nursing [address] [id number] Mar, Mike Malone [address] [id number] Mar, Nursing [address] [id number] 08 Mar, [address] [id number] Mar, [address] [id number] Mar, Mike Malone [facility] [address] [place] [address] [place] [id number] February, Garcia Gan [address] [id number] February, Nursing [address] [id number] Jan, Cristina Hernandezsie [facility] [address] [place] [address] [place] [id number] 15 Jan, 2022 Ruchi Soto Acute respiratory distress R06.[address] [id number] 14 Jan, 2022 Nursing [facility] Bipolar disorder, current episode mixed, moderate F31.[address] [id number] 14 Jan, 2022 Tarunssgerri ZZBossie [address] [id number] 13 Jan, 2022 ZZJessica ZZBossie Fibromyalgia M79.7 and Bipolar disorder, current episode mixed, moderate F31.62 [facility] [address] [place] [address] [id number] Dec, ZZJessica ZZBossie [address] [id number] Dec, Kathie Moctezuma [address] [id number] Dec, Nursing [facility] Encounter for screening for infectious and parasitic diseases, unspecified Z11.[address] [id number] Dec, CHW [address] [id number] Dec, ZZJessica ZZBossie Bipolar disorder, current episode mixed, moderate F31.62 ; Localized swelling, mass and lump, head R22.0 and Fibromyalgia M79.[address] [id number] Dec, Nursing [facility] [address] [place] [address] [id number] Aug, ZZJessica ZZBossie [address] [id number] May, [facility] [address] [id number] Apr, [facility] [place] [address] [id number] Apr, [facility] [address] [place] [address] [id number] May, [facility] [address] [id number] Jan, Claudiabennett Retana [address] [id number] Jan, Tarunssica Davidsie Unspecified convulsions R56.9 ; Encounter for screening for infectious and parasitic diseases, unspecified Z11.9 ; Suicidal ideations R45.851 and Homelessness Z59.0 IMMUNIZATIONS Vaccine Route Administration Date Status Influenza IM Intramuscular Sep 18, 2022 Administere d Moderna Covid-19 Booster Administration - Third Dose (Single Dose 50 mcg/0.25 mL Unknown Dec 08, 2021 Administered Tdap Unknown April 17, 2015 Administered PPSV 23 Unknown Nov 29, 2018 Administered Ishaan COVID-19 Vaccine Unknown Jun 24, 2021 Adm inistered Influenza Unknown Aug 25, 2021 Administered SOCIAL HISTORY Tobacco Use: Social History Observation Description Date Details (start date - stop date) Current Smoker Sex Assigned At : Social History Observation Description Sex Assigned At Unknown Tobacco Use Assessment MU Question Answer Notes What is your current smoking status? current smo ker Patient counseled on the cam sullivan of tobacco use and advised to quit: 02/10/2022 Are you interested in quitting? Not ready to sagar t How soon after you wake up do you smoke your fir st cigarette? within 5 min How many cigarettes a day do you smoke? 5 or les s How often do you smoke? every day REASON FOR REFERRAL from 1971 to 2023-07-20 Reason [facility], [address] Provider: Zen Galvez - for large swelling behind left ear. Giuliana send biopsy and imaging records from [facility]. Diagnosis 1 Localized swelling, mass and lump, head (R22.0) Referral Organization [facility] Referring Provider First Name Cristina Referring Provider Last Name Valeriano Referring Provider Specialty Family Prac jorge luis Referred Provider [facility]erred Provider Specialty Otology, Lar yngology, Rhinology Referral Priority Routine Referral Appointment Date 2022-03-08 General Notes Mavis Villafuerte 022 02:57:10 PM >Waiting on records from [facility] - they were requested Mavis Villafuerte 01/07/2022 12:06:58 PM >Requested records again. Ruchi Chacon 01/12/2022 11:24:55 AM >appt set for 03/31/22 but may be moved to a sooner date when triage reviews biopsy results from [facility]. ENT will also call and try to obtain these records as well. [facility] called again->MR, additional fax for records: [phone]--promised by 4pm today [Roxie]. They should be faxed to triage fax on page one of this referral: [phone] Mavis Villafuerte 01/12/2022 03:13:26 PM >appt moved to 02/11 at 12:30pm in [place] office with Dr. Hinton. [facility] to [facility]. Mavis Villafuerte 01/13/2022 02:56:02 PM >Patient no longer at [facility]. Called phone number again, did not leave a v/m on [facility]. Should I cancel or wait? Karely Tirado 01/14/2022 01:41:10 PM >i'd wait, not sure who this pt is but I know [facility] said this really needs to be addressed Mavis Villafuerte 01/14/2022 03:30:52 PM >ENT called, they scheduled her in [place] instead of [place], still have not seen pt Karely Tirado 01/29/2022 12:13:28 PM >unable to remind pt of appt, number in chart was not hers Mavis Villafuerte 02/01/2022 11:46:11 AM >faxed request to reschedule Mavis Villafuerte 03/03/2022 01:51:54 PM >L/M for patient, will also notify [facility] tomorrow. Karely Tirado 03/18/2022 01:40:46 PM >pt no showed Mike Malone 03/19/2022 07:13:57 AM >cAn we find her? I would love to see her. Or has she resurfaced aywhere else? Karely Tirado 03/23/2022 12:57:06 PM >phone is off goes right to , left requesting call back Karely Tirado 04/01/2022 10:20:03 AM >pt continued to go inpatient for psych if we could only get her assessed while there Mike Malone 04/01/2022 08:28:17 PM >Where is she nowa dn is there aphne number? I can call them and ask them to arrange medcial-maybe Karely Tirado 04/02/2022 09:50:02 AM >in and out of ER's or inpatient psych admits, unknown location right now and she doesn;t answer her phone- vms have been left. Cam you check to see if she is inpatient at [facility]? Mike Malone 04/04/2022 10:00:21 AM >AT Gautam Ingram-they arestarting neck eval and I am sending them a synopsis of what we got from [facility] (p[sych and a med consult) Reason Needs rollator Diagnosis 1 Fibromyalgia (M79.7) Referral Organization [facility] Referring Provider First Name Cristina Referring Provider Last Name Valeriano Referring Provider Specialty Family Prac jorge luis Referred Provider Raheem Smith Medical Equipment Referral Priority Routine General Notes Alexandra Sanchez 2021 03:58:33 PM >Notes and script faxed Reason Dr. Rehman t) e) [phone] Isolated woman who needs ingrown nail care Diagnosis 1 Ingrowing nail (L60. 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 Her ENt there said f/u is radiation (postive margins. Very delicate idividual who easily gets despondent and can express suiciailiuty. Diagnosis 1 Malignant neoplasm o f parotid gland (C07) Referral Organization [facility] Referring Provider First Name Mike Referring Provider Last Name Kira Referring Provider Specialty Internal Me rufino Referred Provider Specialty Radiation On cology Referral Priority Routine Referral Appointment Date 2022-11-11 General Notes Karely Tirado 10/19/2022 08:55:21 AM >Paperwork faxed, awaiting appt date Karely Tirado 11/04/2022 08:59:58 AM >farnaz aware, already set up pt-1 Mike Malone 11/14/2022 03:50:20 PM >seen 11/11 Dr. Anna: positive margin; rec pulse rads; staging PET CT; we nee to add support Reason [facility] services/med management/ controlled meds Referral Organization [facility] Referring Provider First Name Mike Referring Provider Last Name Kira Referring Provider Specialty Internal Me dicine Referred Provider [facility] Referral Priority Routine General Notes Karely Tirado 11/10/2022 08:58:46 AM >p/w faxed Karely Tirado 11/12/2022 02:14:32 PM >initial intake completed 11/11/22 Reason Nina [phone] (phone) Shower chair and Raised toilet seat 9 Referral Organization [facility] Referring Provider First Name Mike Referring Provider Last Name Kira Referring Provider Specialty Internal Me dicine Referred Provider Sarah,Raheem able Medical Equipment Referral Priority Routine General Notes Karely Tirado 11/12/2022 02:15:30 PM >paperwork, [facility] and rx faxed to Karely Morales 11/29/2022 03:53:16 PM >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 Reason [facility] Cardiology [address] [place] [address] ECHOCARDIOGRAM - high risk and ?cardiac rales/ Referral Organization [facility] Referring Provider First Name Mike Referring Provider [facility] Referring Provider Specialty Internal Me dicine Referred Provider Hi Hat nakul [facility] Referred Provider Specialty Cardiovascul ar Disease Referral Priority Routine General Notes Gilbert Ceron 02/04/2023 09:08:45 AM >Paperwork faxed #[phone] Reason [employer] Diagnosis 1 Severe persistent as thma with (acute) exacerbation (J45.51) Diagnosis 2 Chronic obstructive pulmonary disease, unspecified (J44.9) Referral Organization [facility] Referring Provider First Name Mike Referring Provider Last Name Kira Referring Provider Specialty Internal Me dicine Referred Provider Landen Leyva Referred Provider Specialty DME Referral Priority Routine General Notes Karely Tirado 03/30/2023 09:58:34 AM >paperwork and rx faxed Karely Tirado 03/31/2023 11:34:56 AM >needs to be sent to giovanni or Karely Maurer 03/31/2023 03:02:13 PM >faxed to Karely Mares 04/07/2023 04:04:56 PM >per giovanni neb to be delivered within 3-4 business days Reason [facility] Ph one: [phone], Fax: [phone] Med management/FDC services/Controlled meds Diagnosis 1 Fibromyalgia (M79.7) Diagnosis 2 Malignant neoplasm o f parotid gland (C07) Diagnosis 3 Chronic obstructive pulmonary disease, unspecified (J44.9) Diagnosis 4 Bipolar disorder, cu rrent episode mixed, moderate (F31.62) Referral Organization [facility] Referring Provider First Name Mike Referring Provider Last Name Kira Referring Provider Specialty Internal Me dicine Referred Provider CLAUDIA GARZON ([facility]) Referral Priority Routine General Notes Karely Tirado 07/05/2023 11:46:50 AM >Faxed referral VITAL SIGNS from 1971 to 2023-07-20 Height 65.5 in May, Weight 269 lbs May, BMI 44.08 kg/m2 May, Oximetry 96 May, Temperature 97.1 degrees Fahrenheit May, Blood pressure systolic 136 May, Blood pressure diastolic 87 May, MEDICATIONS Medication SIG (Take, Route, Frequency, Duration) Notes Start Date End Date Status capsaicin topical 0.025% 1 rick applied topically qid for 30 days Active olanzapine 10 mg one tab orally qhs for 30 days Active acetaminophen 500 mg 2 tab(s) orally every 8 hours for 10 days Active Dulera 5 mcg-200 mcg/inh 2 puff(s) inhaled 2 times a day for 30 day(s) May, Active nystatin 383046 units/mL 5 ml orally; swish and swallow 4 times a day for 14 days Active varenicline 0.5 mg 1 tab(s) orally 2 times a day May, Active D3 25 mcg TAKE 1 TABLET BY MOUTH ONCE DAILY for 30 Active Vitamin B-12 1000 mcg TAKE 1 TABLET BY MOUTH ONCE DAILY for 30 Active omeprazole 20 mg 1 cap(s) orally once a day for 30 days Active Gabapentin 300 mg 1 cap(s) orally 2 times a day for 30 days dose lowered HM inpt psych Active Spiriva HandiHaler 18 mcg 1 cap(s) inhaled once a day for 30 days Active Brent ER 450 mg 3 tabs TDD 1350 mg orally qhs dose increased at [facility] Inpt Psych Active Valtrex 1 g 1 tab(s) orally 2 times a day for 30 days Active Combivent Respimat 100 mcg-20 mcg/inh INHALE 1 PUFF BY MOUTH INTO THE LUNGS FOUR TIMES A DAY NEEDED FOR WHEEZING OR TIGHTNESS for 30 Active cetirizine 10 mg 1 tab(s) orally once a day for 30 days Active nitroglycerin 0.4 mg 1 tab(s) sublingually every 5 minutes for 30 days Active nicotine 21 mg/24 hr 1 PATCH transdermally once a day May, Active Rollator 4wh+hndbrk Donal [id number], 1 Sep, Active Ferrous Sulfate 324 mg TAKE 1 TABLET BY MOUTH ONCE DAILY for 30 Active rOPINIRole 1 mg 1 tab(s) orally qhs for 30 days Active clonidine 0.2 mg 1 tab(s) orally qhs for 30 days Active albuterol 2.5 mg/3 mL (0.083%) 3 mL by nebulizer every 6 hours prn for 30 days Active RESULTS from 1971 to 2023-07-20 Component Value Reference Range Notes CR Chest PORTABLE Reviewed date:06/18/2023 09:54:28 Interpretation:Normal Performing Lab:[facility], ,[place] [address] Notes/Report: LITHIUM Reviewed date:06/18/2023 09:52:28 Interpretation:Low Performing Lab:[facility], ,[place] [address] Notes/Report: LITHIUM <0.3 COMPREHENSIVE METABOLIC PANE L Reviewed date:06/18/2023 09:51:40 Interpretation:Normal Performing Lab:[facility], ,[place] [address] Notes/Report: ALBUMIN 4.5 ALK PHOS 79 SGPT 14 ANION GAP SGOT 17 BILI,TOTAL <0.2 BUN 16 CALCIUM 9.8 CHLORIDE 103 CO2 24 CREAT 0.6 GLOMERULAR FILTRATION RATE GLUCOSE 96 POTASSIUM 4.6 SODIUM 140 TOTAL PROTEIN 6.7 CBC Reviewed date:06/18/2023 09:49:17 Interpretation:Normal Performing Lab:[facility], ,[place] [address] Notes/Report: HEMATOCRIT 46 HEMOGLOBIN 14.3 MCH MCHC MCV 101 MEAN PLATELET VOLUME NRBC # AUTO DIFF NRBC % AUTO DIFF PLT COUNT 267 RBC RDW WBC 11.1 TSH Reviewed date:06/18/2023 09:49:57 Interpretation:Normal Performing Lab:[facility], ,[place] [address] Notes/Report: TSH 2.38 LITHIUM Reviewed date:06/09/2023 09:06:17 Interpretation:Low Performing Lab:[facility], NL2, [facility] [address] [place], [place] [id number] Luiza Vasquez, ,[place] [address] Notes/Report: LITHIUM 0.4 mmol/L 0.6-1.2 mmol/L CT Neck W Reviewed date:06/18/2023 09:53:32 Interpretation:ABnormal Performing Lab:[facility], ,[place] [address] Notes/Report: CT Neck W Reviewed date:02/24/2023 23:01:17 Interpretation:Negative - no chnge Performing Lab:[facility], ,[place] [address] Notes/Report: Pathology - other Reviewed date:10/15/2022 23:24:42 Interpretation:Abnormal Performing Lab:[facility], ,[place] [address] Notes/Report: LIPID PANEL Reviewed date:04/12/2022 21:02:02 Interpretation:Abnormal Performing Lab:[facility], ,[place] [address] Notes/Report: X TRIGLYCERIDES 237 CHOLESTEROL, TOTAL 213 HDL CHOLESTEROL 49 LDL-CHOLESTEROL 119 CHOL/HDLC RATIO NON HDL CHOLESTEROL TSH Reviewed date:04/12/2022 21:03:45 Interpretation:Normal Performing Lab:[facility], ,[place] [address] Notes/Report: TSH 0.45 LITHIUM Reviewed date:04/12/2022 20:59:34 Interpretation: Performing Lab:[facility], ,[place] [address] Notes/Report: LITHIUM COVID-19 Reviewed date:04/12/2022 20:57:56 Interpretation:Normal Performing Lab:[facility], ,[place] [address] Notes/Report: BASIC METABOLIC PANEL Reviewed date:04/12/2022 20:56:39 Interpretation:Normal Performing Lab:[facility], ,[place] [address] Notes/Report: GLUCOSE 98 UREA NITROGEN (BUN) 8 CREATININE 0.7 eGFR NON-AFR. LAO eGFR BUN/CREATININE RATIO SODIUM 138 POTASSIUM 5.0 CHLORIDE 98 CARBON DIOXIDE 28 CALCIUM 9.2 EGFR CBC (H/H, RBC, INDICES, WBC, PLT) Reviewed date:04/12/2022 20:55:10 Interpretation:Normal Performing Lab:[facility], ,[place] [address] Notes/Report: WHITE BLOOD CELL COUNT 4.4 RED BLOOD CELL COUNT HEMOGLOBIN 12.5 HEMATOCRIT 40 MCV 95 MCH MCHC RDW PLATELET COUNT 224 MPV CYTOLOGY, NON-GLUE SPREADER Reviewed date:04/12/2022 20:53:55 Interpretation:abnormal Performing Lab:[facility], ,[place] [address] Notes/Report: A CLINICAL IMPRESSION A DIAGNOSIS A GROSS DESCRIPTION A PROCEDURE A SOURCE B CLINICAL IMPRESSION REPORT NOTES REPORT TYPE CLINICAL INFORMATION SCREENER PATHOLOGIST CT Neck W Reviewed date:04/07/2022 10:32:33 Interpretation:Abnormal Performing Lab:[facility] [employer] [facility], ,[place] [address] Notes/Report: COMPREHENSIVE METABOLIC PANE [facility] Reviewed date:02/18/2022 20:58:22 Interpretation:Normal Performing Lab:[facility], ,[place] [address] Notes/Report: GLUCOSE 96 UREA NITROGEN (BUN) 15 CREATININE 0.8 eGFR NON-AFR. LAO eGFR BUN/CREATININE RATIO SODIUM 139 POTASSIUM 4.3 CHLORIDE 101 CARBON DIOXIDE 31 CALCIUM 9.5 PROTEIN, TOTAL 6.6 ALBUMIN 4.6 GLOBULIN ALBUMIN/GLOBULIN RATIO 2.3 BILIRUBIN, TOTAL 0.2 ALKALINE PHOSPHATASE 82 AST 18 ALT 20 EGFR CBC (H/H, RBC, INDICES, WBC, PLT) Reviewed date:02/18/2022 20:56:44 Interpretation:Abnormal: Hct 34 Performing Lab:[facility], ,[place] [address] Notes/Report: WHITE BLOOD CELL COUNT 10.6 RED BLOOD CELL COUNT HEMOGLOBIN 10.4 HEMATOCRIT 34 MCV 99 MCH MCHC RDW PLATELET COUNT [address] Angio: chest with contras t Reviewed date:02/18/2022 20:55:26 Interpretation:Abnormal Performing Lab:[facility], ,[place] [address] Notes/Report: LITHIUM Reviewed date:02/18/2022 21:01:03 Interpretation:Normal Performing Lab:[facility], ,[place] [address] Notes/Report: LITHIUM 0.7 COVID-19 Reviewed date:02/18/2022 21:01:57 Interpretation:Negative Performing Lab:[facility], ,[place] [address] Notes/Report: TSH Reviewed date:02/18/2022 21:00:09 Interpretation:Normal Performing Lab:[facility], ,[place] [address] Notes/Report: TSH 1.55 Nt-Probnp Reviewed date:02/18/2022 20:59:20 Interpretation:High: 186 Performing Lab:[facility], ,[place] [address] Notes/Report: LITHIUM Reviewed date:02/16/2022 09:54:03 Interpretation:Normal Performing Lab:[facility], [facility], [employer] [address], [address], [id number] Luiza Wilcoxteddy, ,[place] [address] Notes/Report: LITHIUM 0.7 mmol/L 0.6-1.2 mmol/L CBC (H/H, RBC, INDICES, WBC, PLT) Reviewed date:01/01/2022 17:26:26 Interpretation:Normal Performing Lab:[facility], [facility], [employer] [place] [employer] [address], [address], [id number] Samanthadyan Wilco[place]eddy, ,[place] [address] Notes/Report: WHITE BLOOD CELL COUNT 7.3 Thousand/uL 3.8-10.8 Thousa nd/uL RED BLOOD CELL COUNT 4.66 Million/uL 3.80-5.10 Million /uL HEMOGLOBIN 14.2 g/dL 11.7-15.5 g/dL HEMATOCRIT 42.7 % 35.0-45.0 % MCV 91.6 fL 80.0-100.0 fL MCH 30.5 pg 27.0-33.0 pg MCHC 33.3 g/dL 32.0-36.0 g/dL RDW 13.4 % 11.0-15.0 % PLATELET COUNT 370 Thousand/uL 140-400 Thousand/uL MPV 10.1 fL 7.5-12.5 fL HEMOGLOBIN A1c Reviewed date:01/01/2022 17:27:05 Interpretation:Normal Performing Lab:[facility], [facility], [employer] [address], [address], [id number] Samanthadyan Wilco[place]dy, ,[place] [address] Notes/Report: HEMOGLOBIN A1c 5.4 % of total Hgb <5.7 % of total Hgb LIPID PANEL Reviewed date:01/13/2022 11:39:34 Interpretation:ASCVD 4.9% Performing Lab:[facility], [facility], [employer] [place] [employer] [address], [address], [id number] Luzia Vasquez, ,[place] [address] Notes/Report: TRIGLYCERIDES 166 mg/dL <150 mg/dL CHOLESTEROL, TOTAL 212 mg/dL <200 mg/dL HDL CHOLESTEROL 56 mg/dL >OR = 50 mg/dL LDL-CHOLESTEROL 128 mg/dL (calc) CHOL/HDLC RATIO 3.8 (calc) <5.0 (calc) NON HDL CHOLESTEROL 156 mg/dL (calc) <130 mg/dL (calc) COMPREHENSIVE METABOLIC PANE [facility] Reviewed date:01/01/2022 17:26:58 Interpretation:Normal Performing Lab:[facility], NL[facility], [facility] [id number], [address], [id number] Luiza Vasquez, ,[place] [address] Notes/Report: GLUCOSE 80 mg/dL 65-99 mg/dL UREA NITROGEN (BUN) 8 mg/dL 7-25 mg/dL CREATININE 0.65 mg/dL 0.50-1.05 mg/dL eGFR NON-AFR. LAO 104 mL/min/1.73m2 >OR = 60 mL/m in/1.73m2 eGFR 120 mL/min/1.73m2 >OR = 60 mL/mi n/1.73m2 BUN/CREATININE RATIO NOT APPLICABLE (calc) 6-22 (calc) SODIUM 139 mmol/L 135-146 mmol/L POTASSIUM 4.3 mmol/L 3.5-5.3 mmol/L CHLORIDE 103 mmol/L 98-110 mmol/L CARBON DIOXIDE 30 mmol/L 20-32 mmol/L CALCIUM 10.4 mg/dL 8.6-10.4 mg/dL PROTEIN, TOTAL 7.3 g/dL 6.1-8.1 g/dL ALBUMIN 4.7 g/dL 3.6-5.1 g/dL GLOBULIN 2.6 g/dL (calc) 1.9-3.7 g/dL (calc) ALBUMIN/GLOBULIN RATIO 1.8 (calc) 1.0-2.5 (calc) BILIRUBIN, TOTAL 0.4 mg/dL 0.2-1.2 mg/dL ALKALINE PHOSPHATASE 80 U/L 37-153 U/L AST 14 U/L 10-35 U/L ALT 14 U/L 6-29 U/L TSH Reviewed date:01/13/2022 11:39:38 Interpretation:Normal Performing Lab:[facility], [facility], [facility] [employer], [address], [id number] Luiza Vasquez, ,[place] [address] Notes/Report: TSH 1.90 mIU/L LITHIUM Reviewed date:01/01/2022 17:26:41 Interpretation:In Range Performing Lab:[facility], [facility], [facility], [address], [id number] Luiza Vasquez, ,[place] [address] Notes/Report: LITHIUM 0.7 mmol/L 0.6-1.2 mmol/L Pap smear Reviewed date:08/05/2020 18:07:21 Interpretation:Neg Cells / Neg for HR HPV Performing Lab:[facility], ,[place] [address] Notes/Report: Pap smear Reviewed date:08/05/2020 18:07:47 Interpretation:ASCUS / HR HPV neg Performing Lab:[facility], ,[place] [address] Notes/Report: REASON FOR VISIT No Information MEDICAL (GENERAL) HISTORY Type Description Date Medical History 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, 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 Medical History Bipolar I Medical History Back Pain - Chronic Medical History Hx of headaches Medical History Asthma Medical History COPD Medical History Depression Medical History Anxiety Medical History Panic attacks Medical History Hx of multiple hernias Medical History Right forearm cyst 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 Surgical History Tubal ligation 1999 Surgical History parotidectomy, left total - BRITT SS Dr. Temple 08/21 Hospitalization History Psych admits - multiple (30) 7 Yoa-49 Y[facility] Hospitalization History Pneumonia multiple MENTAL STATUS No Information ASSESSMENTS Encounter Date Diagnosis Assessment Notes Treatment Notes Treatment Clinical Notes Jul, Encounter for screening for infectious and parasitic diseases, unspecified (ICD-10 - Z11.9) Covid screening is negative. Discussed in detail with patient how to practice social distancing by avoiding public spaces and crowds now, wearing a mask in public to keep nose and mouth covered, and washing hands frequently especially before eating and after using the bathroom. Return to clinic if you develop any symtpoms of concern to be rescreened or go to the emergency room if you are having concerning symptoms for COVID-19. Jul, Bipolar disorder, current episode mixed, moderate (ICD-10 - F31.62) Reviewed hx of psychiatric illness, treatment received and medication trials with client. Discussed current medications as to indications, actions and side effects. Reviewed risks benefits of treatment versus non treatment. Medication education provided. Patient given opportunity to ask questions. Patient gives informed consent to proceed with prescribed treatment. 1. [employer] SUPER[employer]OR REMELT reviewed: see Exam 2. Medications: 3. Cont psychotherapy: 4. Labs/Procedures: 5. Exercise/Nutrition: sleep, regular exercise and nutrition all have a direct impact on our health and well-being. Keeping them in balance is especially important when we face stressful times in our lives. Eat balanced meals, get 6-8 hours of sleep a night, daily walking as able. 6. Understands plan and verbalizes agreement, allowed time for clarifying questions. 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 States she took an old trazodone one night and felt am grogginess, aware trazodone D/C'd and advised to talk with prescriber before taking again. Sleep hygiene reviewed. Jul, Nicotine dependence, unspecified, uncomplicated (ICD-10 - F17.200) Per client has Step 1 and Step 2 patches when she feels ready to commit to cessation. She is smoking 2 to 2.5 packs a day. Encouraged to cut back in light of COPD diagnosis. Jul, Encounter for screening for infectious and parasitic diseases, unspecified (ICD-10 - Z11.9) Covid screening is negative. Discussed in detail with patient how to practice social distancing by avoiding public spaces and crowds now, wearing a mask in public to keep nose and mouth covered, and washing hands frequently especially before eating and after using the bathroom. Return to clinic if you develop any symtpoms of concern to be rescreened or go to the emergency room if you are having concerning symptoms for COVID-19. May, Encounter for screening for infectious and parasitic diseases, unspecified (ICD-10 - Z11.9) Covid screening is negative. Discussed in detail with patient how to practice social distancing by avoiding public spaces and crowds now, wearing a mask in public to keep nose and mouth covered, and washing hands frequently especially before eating and after using the bathroom. Return to clinic if you develop any symtpoms of concern to be rescreened or go to the emergency room if you are having concerning symptoms for COVID-19. May, Chronic obstructive pulmonary disease, unspecified (ICD-10 - J44.9) Gets recurring bronchitis and probably RAD but some of her wheeze sounds like it may be vocal cord. iof she gets back to ENT I will ask them to look again for paradozxical movement.In any cvase she is just ending sterod rx and I do not want to stretch that out. 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 Some subtle change but does not sound worrisome. I had called ENT at [facility] with job 2 weeks ago and they have not gotten vback to krystin of us. Nurse to call them again as patient wants and deserves their opinion May, Nicotine dependence, unspecified, uncomplicated (ICD-10 - F17.200) wants to stop adn smokes nighatley. WIlling to tryu chantix and patch and advised her to not buy cigatrettes. we have to try but niot sure how well it will go. Canitx effects and se's d/w patinet May, Cocaine abuse, uncomplicated (ICD-10 - F14.10) stil,her 2nd biggest devil after tobbacco. May, Other Because of emoionality and other factros says she misses med s or foirgets the,m. She latys oyut her pill bxioes (hopes she gets it right-literacy issue) but really wants new VNA that can handle her lock box. I concur. 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 Scar tenderness is back I guess at thispoint she and her BF willrun the meds etc. Proxy done today on their reqyest May, Encounter for screening for infectious and parasitic diseases, unspecified (ICD-10 - Z11.9) Covid screening is negative. Discussed in detail with patient how to practice social distancing by avoiding public spaces and crowds now, wearing a mask in public to keep nose and mouth covered, and washing hands frequently especially before eating and after using the bathroom. Return to clinic if you develop any symtpoms of concern to be rescreened or go to the emergency room if you are having concerning symptoms for COVID-19. May, Sheltered homelessness (ICD-10 - Z59.01) May, Candidiasis, unspecified (ICD-10 - B37.9) oral-rx topically May, Chronic obstructive pulmonary disease, unspecified (ICD-10 - J44.9) more llergic todya than anything zurtec and time May, Obstructive sleep apnea (adult) (pediatric) (ICD-10 - G47.33) May, Other Labs drawn per protocol, no difficulties, sent to lab, pt to [facility] for f/u proxy paper done Apr, Bipolar disorder, current episode mixed, moderate (ICD-10 - F31.62) Mar, Encounter for screening for infectious and parasitic diseases, unspecified (ICD-10 - Z11.9) Covid screening is negative. Discussed in detail with patient how to practice social distancing by avoiding public spaces and crowds now, wearing a mask in public to keep nose and mouth covered, and washing hands frequently especially before eating and after using the bathroom. Return to clinic if you develop any symtpoms of concern to be rescreened or go to the emergency room if you are having concerning symptoms for COVID-19. 16 Mar, 2023 Bipolar disorder, current episode mixed, moderate (ICD-10 - F31.62) Mar, Encounter for screening for infectious and parasitic diseases, unspecified (ICD-10 - Z11.9) Covid screening is negative. Discussed in detail with patient how to practice social distancing by avoiding public spaces and crowds now, wearing a mask in public to keep nose and mouth covered, and washing hands frequently especially before eating and after using the bathroom. Return to clinic if you develop any symtpoms of concern to be rescreened or go to the emergency room if you are having concerning symptoms for COVID-19. Mar, Chronic obstructive pulmonary disease, unspecified (ICD-10 - J44.9) will get nebulizer-has duonebs. Agrees no abx or steroid at this time Stay in out of smoke alert will try to wokon tobacco Mar, Sheltered homelessness (ICD-10 - Z59.01) Mar, Fibromyalgia (ICD-10 - M79.7) stable Mar, Bipolar disorder, current episode mixed, moderate (ICD-10 - F31.62) stable but tenuous. Working with Mar, Unspecified convulsions (ICD-10 - R56.9) ? 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 Discussed in detail with patient how to practice social distancing by avoiding public spaces and crowds now, wearing a mask in public to keep nose and mouth covered, and washing hands frequently especially before eating and after using the bathroom. Return to clinic if you develop any symtpoms of concern to be rescreened or go to the emergency room if you are having concerning symptoms for COVID-19. 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 February, Bipolar disorder, current episode mixed, moderate (ICD-10 - F31.62) Medication reconciliation done with Trevor Carvajal based on D/C paperwork he recived. Have also requested copy of D/C paprework through [facility] with [facility]. PLan to review paperwork and call Wei with any discrepancies [phone]. February, Encounter for screening for infectious and parasitic diseases, unspecified (ICD-10 - Z11.9) Covid screening is negative. Discussed in detail with patient how to practice social distancing by avoiding public spaces and crowds now, wearing a mask in public to keep nose and mouth covered, and washing hands frequently especially before eating and after using the bathroom. Return to clinic if you develop any symtpoms of concern to be rescreened or go to the emergency room if you are having concerning symptoms for COVID-19. 05 Feb, 2023 Bipolar disorder, current episode mixed, moderate (ICD-10 - F31.62) Jan, Encounter for screening for infectious and parasitic diseases, unspecified (ICD-10 - Z11.9) Covid screening is negative. Discussed in detail with patient how to practice social distancing by avoiding public spaces and crowds now, wearing a mask in public to keep nose and mouth covered, and washing hands frequently especially before eating and after using the bathroom. Return to clinic if you develop any symtpoms of concern to be rescreened or go to the emergency room if you are having concerning symptoms for COVID-19. 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 [facility] has said they will not treat as her reliance is limited and partial rx not good. Ms. Garza says she would go in afternoon but mask also hurt. 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 Discussed in detail with patient how to practice social distancing by avoiding public spaces and crowds now, wearing a mask in public to keep nose and mouth covered, and washing hands frequently especially before eating and after using the bathroom. Return to clinic if you develop any symtpoms of concern to be rescreened or go to the emergency room if you are having concerning symptoms for COVID-19. Dec, Cough (ICD-10 - R05) Well add her cough syrup back in. I want to ge PFT's we are stopping albuterol and goingto Combivent respiclick along with Spiiva. I do nto think thjis is all CHF Dec, Immunization not carried out because of patient decision for unspecified reason (ICD-10 - Z28.20) pt declined hep b vaccine, not feeling well at today's visit. Dec, Fibromyalgia (ICD-10 - M79.7) she states this is her limiting mobility problem. 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 she has rebooked Dec, Bipolar disorder, current episode mixed, moderate (ICD-10 - F31.62) see above Dec, Encounter for screening for infectious and parasitic diseases, unspecified (ICD-10 - Z11.9) Covid screening is negative. Discussed in detail with patient how to practice social distancing by avoiding public spaces and crowds now, wearing a mask in public to keep nose and mouth covered, and washing hands frequently especially before eating and after using the bathroom. Return to clinic if you develop any symtpoms of concern to be rescreened or go to the emergency room if you are having concerning symptoms for COVID-19. Dec, Bipolar disorder, current episode mixed, moderate (ICD-10 - F31.62) Reviewed hx of psychiatric illness, treatment received and medication trials with client. Discussed current medications as to indications, actions and side effects. Reviewed risks benefits of treatment versus non treatment. Medication education provided. Patient given opportunity to ask questions. Patient gives informed consent to proceed with prescribed treatment. 1. Mass SUPERVISOR REMELT reviewed: see exam 2. Medications: Client would like to come off trazodone. Shared decison making to decrease dose from 200 mg at HS to 100 mg at HS. Called MELONY Piedra from [facility] who does med mgt, per Tadeo client has not been taking trazodone so medication stopped. He will also send current medication list for med reconciliation. Will also obtain Gautam Ingram d/raina for review. Unclear why started on sertraline. Client endorses she would like to simplify medication regimen. 3. Cont psychotherapy: has F/U appt with Dyan Todd [facility] 4. Labs/Procedures: will get Brent and metabolic monitoring labs at next visit 5. Exercise/Nutrition: sleep, regular exercise and nutrition all have a direct impact on our health and well-being. Keeping them in balance is especially important when we face stressful times in our lives. Eat balanced meals, get 6-8 hours of sleep a night, daily walking as able. 6. Understands plan and verbalizes agreement, allowed time for clarifying questions. 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 Discussed in detail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 diseases, unspecified Covid screening is negative. Discussed in detail with patient how to practice social distancing by avoiding public spaces and crowds now, wearing a mask in public to keep nose and mouth covered, and washing hands frequently especially before eating and after using the bathroom. Return to clinic if you develop any symtpoms of concern to be rescreened or go to the emergency room if you are having concerning symptoms for COVID-19. Encounter for screening for infectious and parasitic diseases, unspecified Covid screening is negative. Discussed in detail with patient how to practice social distancing by avoiding public spaces and crowds now, wearing a mask in public to keep nose and mouth covered, and washing hands frequently especially before eating and after using the bathroom. Return to clinic if you develop any symtpoms of concern to be rescreened or go to the emergency room if you are having concerning symptoms for COVID-19. Encounter for screening for infectious and parasitic diseases, unspecified Covid screening is negative. Discussed in detail with patient how to practice social distancing by avoiding public spaces and crowds now, wearing a mask in public to keep nose and mouth covered, and washing hands frequently especially before eating and after using the bathroom. Return to clinic if you develop any symtpoms of concern to be rescreened or go to the emergency room if you are having concerning symptoms for COVID-19. Encounter for screening for infectious and parasitic diseases, unspecified Covid screening is negative. Discussed in detail with patient how to practice social distancing by avoiding public spaces and crowds now, wearing a mask in public to keep nose and mouth covered, and washing hands frequently especially before eating and after using the bathroom. Return to clinic if you develop any symtpoms of concern to be rescreened or go to the emergency room if you are having concerning symptoms for COVID-19. Chronic obstructive pulmonar y disease, unspecified will get nebulizer-has duonebs. Agrees no abx or steroid at this time Stay in out of smoke alert will try to wokon tobacco Encounter for screening for infectious and parasitic diseases, unspecified Covid screening is negative. Discussed in detail with patient how to practice social distancing by avoiding public spaces and crowds now, wearing a mask in public to keep nose and mouth covered, and washing hands frequently especially before eating and after using the bathroom. Return to clinic if you develop any symtpoms of concern to be rescreened or go to the emergency room if you are having concerning symptoms for COVID-19. 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 Discussed in detail with patient how to practice social distancing by avoiding public spaces and crowds now, wearing a mask in public to keep nose and mouth covered, and washing hands frequently especially before eating and after using the bathroom. Return to clinic if you develop any symtpoms of concern to be rescreened or go to the emergency room if you are having concerning symptoms for COVID-19. Bipolar disorder, current ep isode mixed, moderate On complex regimen. Has no regular prescriber. Has not had lab work. Med list confirmed via recent discharge on 12/02 from [facility]. Will RTC tomorrow for labs prior to taking lithium dose. Encounter for screening for infectious and parasitic diseases, unspecified Covid screening is negative. Discussed in detail with patient how to practice social distancing by avoiding public spaces and crowds now, wearing a mask in public to keep nose and mouth covered, and washing hands frequently especially before eating and after using the bathroom. Return to clinic if you develop any symtpoms of concern to be rescreened or go to the emergency room if you are having concerning symptoms for COVID-19. Pending Tests Test Name Order Date LITHIUM 2023-05-18 CBC (H/H, RBC, INDICES, WBC, PLT) 2022- 4-06 HEMOGLOBIN A1c 2023-02-03 LIPID PANEL 2023-02-03 COMPREHENSIVE METABOLIC PANEL-[facility] 2022 ALBUMIN 2023-02-03 HEPATITIS B CORE AB TOTAL 2023-02-03 HEPATITIS B SURFACE ANTIGEN W/REFL CONFI RM 2023-02-03 TSH 2023-02-03 B TYPE NATRIURETIC PEPTIDE (BNP) 2023-01 LITHIUM 2023-02-03 HEPATITIS B SURFACE AB IMMUNITY, QN 2022 Pulmonary Function Test 2023-01-07 Referrals Referral Date Details 2022-03-08 2022-03-08, [facility], [address] [facility] Provider: Zen Galvez - for large swelling behind left ear. Plz send biopsy and imaging records from [facility] of [facility] Needs rollator, Dura ble Medical Equipment Sarah Dr. 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 Her ENt there said f/u is radiation (postive margins. Very delicate idividual who easily gets despondent and can express suiciailiuty. [facility] services/med management/ controlled meds, Home[facility] [phone] (phone) Shower chair and Raised toilet seat 9 , Durable Medical Equipment [facility] [address] [place] [address] ECHOCARDIOGRAM - high risk and ?cardiac rales/, [facility] [employer] [facility], H e[facility]care [facility] Ph one: [phone], Fax: [phone] Med management/FDC services/Controlled meds Next Appt Details Provider Name:Jessika Altamirano, 2023-07-21 11:30:00 AM, [address] [place] [address], [phone], Provider Name:Mike Malone, 2023-08-09 03:00:00 PM, [address] [place] [address], [phone], Insurance Providers Payer Name Payer Address Payer Phone Insured Name Patient Relationship to Insured Coverage Start Date Coverage End Date Subscriber Number Group Number [place] Medicaid C3 [id number] [facility] [id number] Stephanie Garza A Self - patient is the insured 1 [id number]
[2023-07-20 16:15] VITALS: BP 133/72; PULSE 95; TEMP 36
[2023-07-20 16:28] VITALS: BMI 43.3
[2023-07-20] MEDS: Gabapentin 300 MG CAPSULE PO (17:15)
[2023-07-20] MEDS: Lithium Carbonate ER 450 MG TABLET.ER PO ×3 (17:15→20:41)
[2023-07-20 18:00] VITALS: BP 130/81; PULSE 97; RESP 16; TEMP 36.2; O2SAT 93
[2023-07-20] MEDS: Albuterol Sulfate 90 MCG 8 GM INHALER 2 PUFF INHALE (18:37)
[2023-07-20] MEDS: cloNIDine HCL 0.2 MG TABLET PO (20:42)
[2023-07-20] MEDS: OLANZapine 10 MG TABLET PO (20:43)
[2023-07-20] MEDS: rOPINIRole HCL 1 MG TABLET PO (20:43)
[2023-07-20] MEDS: Gabapentin 300 MG CAPSULE 900 MG PO (20:43)
--- NOTE | 2023-07-21 01:01 | PC.ADMIT ---
A , white female, aged 53 years [facility] at 14:30 following referral from [facility] med floor and from [facility] CARE team. Pt was brought to [facility] ED by EMS on 07/18 s/p o/d of 15 tablets of Tylenol. Pt had called EMS after taking an intentional overdose of Tylenol after finding out her brother had . Pt had called EMS because of difficulty breathing which scared her. Pt reported feeling unhappy she was still alive. Pt said she knows she will have to take more than 15 tablets to sooner, without feeling like she can't breathe at the end. Pt stated she wants to , but also wants to live. Pt was cooperative during admission. Pt reports depression and anxiety to be both 10/10. Pt reports passive SI with no plan to harm self here, but says would not feel safe in the community. Pt reports AH with commands to harm self. Pt states she can seek out help from staff while here on M5. Pt reports poor sleep for over 3 months. Pt has not been medication compliant for 2 weeks. Pt has stable housing in an apartment in [place] after a number of years of homelessness. Pt reports negative interactions with her neighbors that make her want to move. Pt denies Etoh use, saying she has 4 years of sobriety. Pt reported to this hand sign writer that she has abstained from crack cocaine for 2.5 years. In Hqm[facility]-tp-[facility] pt was noted to have acknowledged some cocaine use. Tox screen was negative. Medical issues include: asthma, COPD, obstructive sleep apnea, hx of neck cancer and surgery, hx of cholecystectomy, hx of back surgery, hx of appendectomy, hx of ankle surgery. Pt is a high fall risk and uses a walker. Pt reports she has more falls recently. Pt says she has two VNAs and a ARMAMENT REPAIRER that will be coming to her apartment. Pt is resting in her room at this time; pt uses a Cpap at HS. Blqgu-yz-Hfrto done, Safety tool done, inital treatment plan done and admission orders obtained.
[2023-07-21] MEDS: Omeprazole 20 MG CAPSULE.DR PO (06:12)
[2023-07-21] MEDS: Cholecalciferol (Vitamin D3) 25 MCG TABLET PO (07:53)
[2023-07-21] MEDS: Gabapentin 300 MG CAPSULE PO ×4 (07:53→19:34)
[2023-07-21] MEDS: Cyanocobalamin (Vitamin B-12) 1,000 MCG TABLET 1000 MCG PO (07:53)
[2023-07-21] MEDS: Ferrous Sulfate 324 MG TABLET.DR PO (07:53)
[2023-07-21] MEDS: Lithium Carbonate ER 450 MG TABLET.ER PO ×3 (07:53→19:33)
[2023-07-21] MEDS: Nicotine 14 MG PATCH.TD24 TRANSDERMA (07:54)
[2023-07-21 08:07] VITALS: BP 115/74; PULSE 97; RESP 18; TEMP 36.4; O2SAT 90
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
[2023-07-21 14:14] LABS: Lithium 0.71 mmol/L (0.60-1.20)
[2023-07-21 14:21] LABS: Alanine Aminotransferase 20 U/L (0-31); Albumin Level 3.8 g/dL (3.5-5.0); Alkaline Phosphatase 64 U/L (39-117); Aspartate Amino Transferase 15 U/L (5-31); Bilirubin Direct < 0.2 mg/dL (0.0-0.5); Bilirubin Total 0.2 mg/dL (0.0-1.0); Total Protein 6.6 g/dL (6.5-8.0)
[2023-07-21 19:30] VITALS: BP 111/55; PULSE 94; TEMP 36.2
[2023-07-21] MEDS: OLANZapine 10 MG TABLET PO (19:33)
[2023-07-21] MEDS: cloNIDine HCL 0.2 MG TABLET PO (19:33)
[2023-07-21] MEDS: rOPINIRole HCL 1 MG TABLET PO (19:34)
[2023-07-22 06:00] VITALS: BP 117/71; PULSE 85; RESP 16; TEMP 36.4; O2SAT 94
[2023-07-22] MEDS: Omeprazole 20 MG CAPSULE.DR PO (06:07)
[2023-07-22] MEDS: Lithium Carbonate ER 450 MG TABLET.ER PO ×3 (08:26→21:26)
[2023-07-22] MEDS: Gabapentin 300 MG CAPSULE PO ×3 (08:27→21:28)
[2023-07-22] MEDS: Ferrous Sulfate 324 MG TABLET.DR PO (08:27)
[2023-07-22] MEDS: Cyanocobalamin (Vitamin B-12) 1,000 MCG TABLET 1000 MCG PO (08:27)
[2023-07-22] MEDS: Albuterol Sulfate 90 MCG 8 GM INHALER 2 PUFF INHALE (08:27)
[2023-07-22] MEDS: Cholecalciferol (Vitamin D3) 25 MCG TABLET PO (08:27)
[2023-07-22] MEDS: Nicotine 14 MG PATCH.TD24 TRANSDERMA (08:27)
[2023-07-22 10:45] LABS: Lithium 0.92 mmol/L (0.60-1.20)
[2023-07-22] MEDS: hydrOXYzine HCL 25 MG TABLET PO (14:06)
[2023-07-22] MEDS: Acetaminophen 325 MG TABLET 650 MG PO ×2 (14:06→19:25)
--- NOTE | 2023-07-22 15:12 | P.PNPSI_ITS ---
Subjective Subjective Date of Service: 07/22/23 Reason For Visit: depression/SI Subjective Notes: Conditional Voluntary Interim History: THE PATIENT is a 53-year-old female status post recent suicide attempt, patient states she is future oriented somewhat lethargic the patient has been off gabapentin olanzapine and lithium for a period of time question lethargy secondary to restarting Medication Compliance: Yes Side effects from medications: Yes Review of Systems Acute medical concerns: Yes Status post Tylenol overdose chronic back and leg pain Mental Status Exam Mental Status Exam Narrative: Appearance: casually groomed, using walker Behavior: cooperative PSychomotor: Somewhat lethargic Speech: clear, normal rate/rhythm/volume, spontaneous TP: linear TC: without over psychosis or delusions. feeling better, wanting help still not quite feeling right Mood: Okay Affect: Abarca affect SI: denies current HI: denies VH/AH: none Delusions: none Insight/judgment: fair x 2 current impulse control appears intact in this setting memory/cog: alert, oriented x 3. Diagnostics Vital Signs (24Hr): Vital Signs - 24 hr 07/21/23 19:30 07/22/23 06:00 Temperature 97.2 F 97.5 F Pulse Rate 94 85 Respiratory Rate 16 Blood Pressure 111/55 L 117/71 Pulse Oximetry 94 Oxygen Delivery Method Room Air BMI result Body Mass Index 43.3 Labs Labs: Laboratory Results - last 48 hr 07/21/23 07/22/23 13:58 10:24 Total Bilirubin 0.2 Direct Bilirubin < 0.2 AST 15 ALT 20 Alkaline Phosphatase 64 Total Protein 6.6 Albumin 3.8 [place] 0.71 0.92 Medications Medications Current Medications Acetaminophen (Acetaminophen 325 Mg Tablet) 650 mg PO Q6H PRN PRN Reason: Pain, Moderate(Pain Scale 4-6) Last Admin: 07/22/23 14:06 Dose: 650 mg Al Hydroxide/Mg Hydroxide (Magnesium Hydrox/Alum Hydrox 30 Ml Oral.Susp) 30 ml PO Q6H PRN PRN Reason: Heartburn/Nausea Albuterol Sulfate (Albuterol Sulfate 90 Mcg 8 Gm Inhaler) 2 puff INHALE Q4H PRN PRN Reason: shortness of breath or wheezing Last Admin: 07/22/23 08:27 Dose: 2 puff Albuterol/Ipratropium (Albuterol/Iprat 2.5/0.5mg 3 Ml Ampul.Neb) 3 ml INHALE RQ6H PRN PRN Reason: Shortness Of Breath Or Wheezing Clonidine HCl (Clonidine Hcl 0.2 Mg Tablet) 0.2 mg PO BEDTIME [facility]; Protocol Last Admin: 07/21/23 19:33 Dose: 0.2 mg Cyanocobalamin (Cyanocobalamin (Vitamin B-12) 1,000 Mcg Tablet) 1,000 mcg PO DAILY [facility] Last Admin: 07/22/23 08:27 Dose: 1,000 mcg Ferrous Sulfate (Ferrous Sulfate 324 Mg Tablet.) 324 mg PO DAILY [facility] Last Admin: 07/22/23 08:27 Dose: 324 mg Gabapentin (Gabapentin 300 Mg Capsule) 300 mg PO TID [facility] Last Admin: 07/22/23 14:06 Dose: 300 mg Hydroxyzine HCl (Hydroxyzine Hcl 25 Mg Tablet) 25 mg PO Q6H PRN PRN Reason: Anxiety Last Admin: 07/22/23 14:06 Dose: 25 mg Lidocaine (Lidocaine 4 % Patch Adh..Patch) 1 patch TRANSDERMA DAILY [facility]; Protocol [place] Carbonate ([place] Carbonate Er 450 Mg Tablet.Er) 450 mg PO TID [facility] Last Admin: 07/22/23 14:06 Dose: 450 mg Magnesium Hydroxide (Milk Of Magnesia 30 Ml Oral.Susp) 30 ml PO DAILY PRN PRN Reason: Constipation Nicotine (Nicotine 14 Mg Patch.Td24) 14 mg TRANSDERMA DAILY [facility] Last Admin: 07/22/23 08:27 Dose: 14 mg Nicotine Polacrilex (Nicotine Polacrilex 2 Mg Gum) 4 mg BUCCAL Q2H PRN PRN Reason: Nicotine Cravings Olanzapine (Olanzapine 10 Mg Tablet) 10 mg PO BEDTIME [facility] Last Admin: 07/21/23 19:33 Dose: 10 mg Omeprazole (Omeprazole 20 Mg Capsule.) 20 mg PO DAILY@0630 [facility] Last Admin: 07/22/23 06:07 Dose: 20 mg Ropinirole HCl (Ropinirole Hcl 1 Mg Tablet) 1 mg PO BEDTIME [facility] Last Admin: 07/21/23 19:34 Dose: 1 mg Tiotropium [place] (Tiotropium [place] 2.5 Mcg Inhaler) 2 puff INHALE RDAILY [facility] Last Admin: 07/22/23 08:27 Dose: 2 puff Trazodone HCl (Trazodone Hcl 50 Mg Tablet) 50 mg PO BEDTIME MRX1 PRN PRN Reason: Insomnia Vitamin D (Cholecalciferol (Vitamin D3) 25 Mcg Tablet) 25 mcg PO DAILY [facility] Last Admin: 07/22/23 08:27 Dose: 25 mcg Allergies Allergies Allergy/AdvReac Type Severity Reaction Status Date / Time aspirin Allergy Mild Anaphylaxis Verified 07/19/23 02:34 ampicillin Allergy Rash Verified 07/19/23 02:34 Penicillins Allergy Anaphylaxis Verified 07/19/23 02:34 latex AdvReac Rash Verified 07/19/23 02:34 Latex, Natural Rubber AdvReac Rash Verified 07/19/23 02:34 seafood AdvReac Stomach Verified 07/19/23 02:34 Upset Sulfa (Sulfonamide AdvReac Hives Verified 07/19/23 02:34 Antibiotics) Assessment & Plan Assessment & Plan (1) Post traumatic stress disorder (PTSD): Status: Acute Code(s): F43.10 - Post-traumatic stress disorder, unspecified (2) Bipolar I disorder with depression: Status: Acute Code(s): F31.9 - Bipolar disorder, unspecified (3) Overdose on Tylenol: Status: Acute Code(s): T39.1X1A - Poisoning by 4-Aminophenol derivatives, accidental (unintentional), initial encounter Plan Patient admitted status post overdose worsened by social isolation recently hearing that a brother had main in chronic feelings of isolation in despair. 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 Continue lithium check lithium levels this does complicate her pain management avoid nonsteroidals she is status post Tylenol overdose recheck liver functions she is on CPAP continue inhalers for COPD would benefit from more intensive outpatient treatment she does have DMH involvement patient was cooperative does seem engage in treatment but there is a history of impulsivity Might benefit from the name may help with medication compliance Patient educated on: medication risk/benefits Informed Consent: further education needed Reason for continued inpatient stay Substantial Risk for: harm to self and rapid decompensation Time Spent With Patient Time: Total time managing care of this patient today ____ minutes.
[2023-07-22 21:20] VITALS: BP 132/64; PULSE 94; TEMP 36.3; O2SAT 93
[2023-07-22] MEDS: rOPINIRole HCL 1 MG TABLET PO (21:26)
[2023-07-22] MEDS: cloNIDine HCL 0.2 MG TABLET PO (21:27)
[2023-07-22] MEDS: OLANZapine 10 MG TABLET PO (21:27)
[2023-07-23] MEDS: Omeprazole 20 MG CAPSULE.DR PO (06:36)
[2023-07-23] MEDS: Nicotine 14 MG PATCH.TD24 TRANSDERMA (08:28)
[2023-07-23] MEDS: Gabapentin 300 MG CAPSULE PO ×2 (08:29→19:57)
[2023-07-23] MEDS: Ferrous Sulfate 324 MG TABLET.DR PO (08:29)
[2023-07-23] MEDS: Cholecalciferol (Vitamin D3) 25 MCG TABLET PO (08:29)
[2023-07-23] MEDS: Cyanocobalamin (Vitamin B-12) 1,000 MCG TABLET 1000 MCG PO (08:29)
[2023-07-23] MEDS: Acetaminophen 325 MG TABLET 650 MG PO (08:29)
[2023-07-23] MEDS: Lithium Carbonate ER 450 MG TABLET.ER PO ×3 (08:30→19:56)
[2023-07-23 08:40] VITALS: BP 106/59; PULSE 86; RESP 18; TEMP 36.3; O2SAT 94
--- NOTE | 2023-07-23 09:32 | PC.NURSE ---
pt has a closed dermatitis on her upper chest approximately 2 -put bacitracin ointment on in, will continue to observe.
[2023-07-23] MEDS: Lidocaine 4 % Patch ADH..PATCH 1 PATCH TRANSDERMA (09:40)
--- NOTE | 2023-07-23 11:19 | P.PNPSI_ITS ---
Subjective Subjective Date of Service: 07/23/23 Reason For Visit: depression/SI Interim History: Patient reports she is feeling better today. She says her pain is better controlled with the Lidocaine patch and GBP. She denies SI. She is future oriented. She is interactive in the milieu. Mental Status Exam Mental Status Exam Narrative: Appearance: casually groomed, using walker Behavior: cooperative PSychomotor: Somewhat lethargic Speech: clear, normal rate/rhythm/volume, spontaneous TP: linear TC: without over psychosis or delusions. feeling better, wanting help still not quite feeling right Mood: Okay Affect: Abarca affect SI: denies current HI: denies VH/AH: none Delusions: none Insight/judgment: fair x 2 current impulse control appears intact in this setting memory/cog: alert, oriented x 3. Diagnostics Vital Signs (24Hr): Vital Signs - 24 hr 07/22/23 21:20 07/23/23 08:40 Temperature 97.4 F 97.3 F Pulse Rate 94 86 Respiratory Rate 18 Blood Pressure 132/64 106/59 L Pulse Oximetry 93 94 Oxygen Delivery Method Room Air BMI result Body Mass Index 43.3 Labs Labs: Laboratory Results - last 48 hr 07/21/23 07/22/23 13:58 10:24 Total Bilirubin 0.2 Direct Bilirubin < 0.2 AST 15 ALT 20 Alkaline Phosphatase 64 Total Protein 6.6 Albumin 3.8 [place] 0.71 0.92 Medications Medications Current Medications Acetaminophen (Acetaminophen 325 Mg Tablet) 650 mg PO Q6H PRN PRN Reason: Pain, Moderate(Pain Scale 4-6) Last Admin: 07/23/23 08:29 Dose: 650 mg Al Hydroxide/Mg Hydroxide (Magnesium Hydrox/Alum Hydrox 30 Ml Oral.Susp) 30 ml PO Q6H PRN PRN Reason: Heartburn/Nausea Albuterol Sulfate (Albuterol Sulfate 90 Mcg 8 Gm Inhaler) 2 puff INHALE Q4H PRN PRN Reason: shortness of breath or wheezing Last Admin: 07/22/23 08:27 Dose: 2 puff Albuterol/Ipratropium (Albuterol/Iprat 2.5/0.5mg 3 Ml Ampul.Neb) 3 ml INHALE RQ6H PRN PRN Reason: Shortness Of Breath Or Wheezing Clonidine HCl (Clonidine Hcl 0.2 Mg Tablet) 0.2 mg PO BEDTIME [facility]; Protocol Last Admin: 07/22/23 21:27 Dose: 0.2 mg Cyanocobalamin (Cyanocobalamin (Vitamin B-12) 1,000 Mcg Tablet) 1,000 mcg PO DAILY [facility] Last Admin: 07/23/23 08:29 Dose: 1,000 mcg Ferrous Sulfate (Ferrous Sulfate 324 Mg Tablet.) 324 mg PO DAILY [facility] Last Admin: 07/23/23 08:29 Dose: 324 mg Gabapentin (Gabapentin 300 Mg Capsule) 300 mg PO BID [facility] Last Admin: 07/23/23 08:29 Dose: 300 mg Gabapentin (Gabapentin 100 Mg Capsule) 200 mg PO DAILY PRN PRN Reason: Pain, Moderate(Pain Scale 4-6) Hydroxyzine HCl (Hydroxyzine Hcl 25 Mg Tablet) 25 mg PO Q6H PRN PRN Reason: Anxiety Last Admin: 07/22/23 14:06 Dose: 25 mg Lidocaine (Lidocaine 4 % Patch Adh..Patch) 1 patch TRANSDERMA DAILY [facility]; Protocol Last Admin: 07/23/23 09:40 Dose: 1 patch [place] Carbonate ([place] Carbonate Er 450 Mg Tablet.Er) 450 mg PO TID [facility] Last Admin: 07/23/23 08:30 Dose: 450 mg Magnesium Hydroxide (Milk Of Magnesia 30 Ml Oral.Susp) 30 ml PO DAILY PRN PRN Reason: Constipation Nicotine (Nicotine 14 Mg Patch.Td24) 14 mg TRANSDERMA DAILY [facility] Last Admin: 07/23/23 08:28 Dose: 14 mg Nicotine Polacrilex (Nicotine Polacrilex 2 Mg Gum) 4 mg BUCCAL Q2H PRN PRN Reason: Nicotine Cravings Olanzapine (Olanzapine 10 Mg Tablet) 10 mg PO BEDTIME [facility] Last Admin: 07/22/23 21:27 Dose: 10 mg Omeprazole (Omeprazole 20 Mg Capsule.Dr) 20 mg PO DAILY@0630 [facility] Last Admin: 07/23/23 06:36 Dose: 20 mg Ropinirole HCl (Ropinirole Hcl 1 Mg Tablet) 1 mg PO BEDTIME [facility] Last Admin: 07/22/23 21:26 Dose: 1 mg Tiotropium [place] (Tiotropium [place] 2.5 Mcg Inhaler) 2 puff INHALE RDAILY [facility] Last Admin: 07/23/23 08:39 Dose: 2 puff Trazodone HCl (Trazodone Hcl 50 Mg Tablet) 50 mg PO BEDTIME MRX1 PRN PRN Reason: Insomnia Vitamin D (Cholecalciferol (Vitamin D3) 25 Mcg Tablet) 25 mcg PO DAILY [facility] Last Admin: 07/23/23 08:29 Dose: 25 mcg Allergies Allergies Allergy/AdvReac Type Severity Reaction Status Date / Time aspirin Allergy Mild Anaphylaxis Verified 07/19/23 02:34 ampicillin Allergy Rash Verified 07/19/23 02:34 Penicillins Allergy Anaphylaxis Verified 07/19/23 02:34 latex AdvReac Rash Verified 07/19/23 02:34 Latex, Natural Rubber AdvReac Rash Verified 07/19/23 02:34 seafood AdvReac Stomach Verified 07/19/23 02:34 Upset Sulfa (Sulfonamide AdvReac Hives Verified 07/19/23 02:34 Antibiotics) Assessment & Plan Assessment & Plan (1) Post traumatic stress disorder (PTSD): Status: Acute Code(s): F43.10 - Post-traumatic stress disorder, unspecified (2) Bipolar I disorder with depression: Status: Acute Code(s): F31.9 - Bipolar disorder, unspecified (3) Overdose on Tylenol: Status: Acute Code(s): T39.1X1A - Poisoning by 4-Aminophenol derivatives, accidental (unintentional), initial encounter Plan Patient admitted status post overdose worsened by social isolation recently hearing that a brother had main in chronic feelings of isolation in despair. 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 Continue lithium check lithium levels this does complicate her pain management avoid nonsteroidals she is status post Tylenol overdose recheck liver functions she is on CPAP continue inhalers for COPD would benefit from more intensive outpatient treatment she does have DMH involvement patient was cooperative does seem engage in treatment but there is a history of impulsivity Might benefit from the name may help with medication compliance 07/23: Continue current treatment plan. Reason for continued inpatient stay Substantial Risk for: harm to self and rapid decompensation Time Spent With Patient Time: Total time managing care of this patient today ____ minutes.
[2023-07-23] MEDS: Gabapentin 100 MG CAPSULE 200 MG PO (14:27)
[2023-07-23 18:00] VITALS: BP 127/69; PULSE 83; RESP 16; TEMP 36.4; O2SAT 95
[2023-07-23] MEDS: OLANZapine 10 MG TABLET PO (19:56)
[2023-07-23] MEDS: cloNIDine HCL 0.2 MG TABLET PO (19:56)
[2023-07-23] MEDS: rOPINIRole HCL 1 MG TABLET PO (19:57)
[2023-07-24] MEDS: Omeprazole 20 MG CAPSULE.DR PO (06:28)
[2023-07-24] MEDS: Cyanocobalamin (Vitamin B-12) 1,000 MCG TABLET 1000 MCG PO (08:14)
[2023-07-24] MEDS: Gabapentin 300 MG CAPSULE PO ×3 (08:14→19:05)
[2023-07-24] MEDS: Lithium Carbonate ER 450 MG TABLET.ER PO ×3 (08:14→19:05)
[2023-07-24] MEDS: Ferrous Sulfate 324 MG TABLET.DR PO (08:15)
[2023-07-24] MEDS: Nicotine 14 MG PATCH.TD24 TRANSDERMA (08:15)
[2023-07-24] MEDS: Lidocaine 4 % Patch ADH..PATCH 1 PATCH TRANSDERMA (08:15)
[2023-07-24] MEDS: Cholecalciferol (Vitamin D3) 25 MCG TABLET PO (08:15)
[2023-07-24 08:30] VITALS: BP 100/70; PULSE 89; RESP 18; TEMP 36.2; O2SAT 95
[2023-07-24] MEDS: hydrOXYzine HCL 25 MG TABLET PO (09:35)
--- NOTE | 2023-07-24 13:14 | P.PNPSI_ITS ---
Subjective Subjective Date of Service: 07/24/23 Reason For Visit: depression/SI Interim History: Patient has been angry and upset today. She was triggered by another patient that was discussing his addiction history and sh says she was triggered by that. She says I am an addict and I want him to stay away from me She says she would rather be home. She was complaining of increased pain. We discussed increasing her GBP back to 300 mg TID. She was agreeable. Mental Status Exam Mental Status Exam Narrative: Appearance: casually groomed, using walker Behavior: cooperative PSychomotor: Somewhat lethargic Speech: clear, normal rate/rhythm/volume, spontaneous TP: linear TC: without over psychosis or delusions. feeling better, wanting help still not quite feeling right Mood: Okay Affect: Abarca affect SI: denies current HI: denies VH/AH: none Delusions: none Insight/judgment: fair x 2 current impulse control appears intact in this setting memory/cog: alert, oriented x 3. Diagnostics Vital Signs (24Hr): Vital Signs - 24 hr 07/23/23 18:00 07/24/23 08:30 Temperature 97.6 F 97.2 F Pulse Rate 83 89 Respiratory Rate 16 18 Blood Pressure 127/69 100/70 Pulse Oximetry 98 95 Oxygen Delivery Method Room Air Room Air BMI result Body Mass Index 43.3 Medications Medications Current Medications Acetaminophen (Acetaminophen 325 Mg Tablet) 650 mg PO Q6H PRN PRN Reason: Pain, Moderate(Pain Scale 4-6) Last Admin: 07/23/23 08:29 Dose: 650 mg Al Hydroxide/Mg Hydroxide (Magnesium Hydrox/Alum Hydrox 30 Ml Oral.Susp) 30 ml PO Q6H PRN PRN Reason: Heartburn/Nausea Albuterol Sulfate (Albuterol Sulfate 90 Mcg 8 Gm Inhaler) 2 puff INHALE Q4H PRN PRN Reason: shortness of breath or wheezing Last Admin: 07/22/23 08:27 Dose: 2 puff Albuterol/Ipratropium (Albuterol/Iprat 2.5/0.5mg 3 Ml Ampul.Neb) 3 ml INHALE RQ6H PRN PRN Reason: Shortness Of Breath Or Wheezing Clonidine HCl (Clonidine Hcl 0.2 Mg Tablet) 0.2 mg PO BEDTIME TEJA; Protocol Last Admin: 09/23/23 19:56 Dose: 0.2 mg Cyanocobalamin (Cyanocobalamin (Vitamin B-12) 1,000 Mcg Tablet) 1,000 mcg PO DAILY [facility] Last Admin: 07/24/23 08:14 Dose: 1,000 mcg Ferrous Sulfate (Ferrous Sulfate 324 Mg Tablet.Dr) 324 mg PO DAILY [facility] Last Admin: 07/24/23 08:15 Dose: 324 mg Gabapentin (Gabapentin 300 Mg Capsule) 300 mg PO BID [facility] Last Admin: 07/24/23 08:14 Dose: 300 mg Gabapentin (Gabapentin 100 Mg Capsule) 200 mg PO DAILY PRN PRN Reason: Pain, Moderate(Pain Scale 4-6) Last Admin: 07/23/23 14:27 Dose: 200 mg Hydroxyzine HCl (Hydroxyzine Hcl 25 Mg Tablet) 25 mg PO Q6H PRN PRN Reason: Anxiety Last Admin: 07/24/23 09:35 Dose: 25 mg Lidocaine (Lidocaine 4 % Patch Adh..Patch) 1 patch TRANSDERMA DAILY [facility]; Protocol Last Admin: 07/24/23 08:15 Dose: 1 patch [place] Carbonate ([place] Carbonate Er 450 Mg Tablet.Er) 450 mg PO TID [facility] Last Admin: 07/24/23 08:14 Dose: 450 mg Magnesium Hydroxide (Milk Of Magnesia 30 Ml Oral.Susp) 30 ml PO DAILY PRN PRN Reason: Constipation Nicotine (Nicotine 14 Mg Patch.Td24) 14 mg TRANSDERMA DAILY [facility] Last Admin: 07/24/23 08:15 Dose: 14 mg Nicotine Polacrilex (Nicotine Polacrilex 2 Mg Gum) 4 mg BUCCAL Q2H PRN PRN Reason: Nicotine Cravings Olanzapine (Olanzapine 10 Mg Tablet) 10 mg PO BEDTIME [facility] Last Admin: 07/23/23 19:56 Dose: 10 mg Omeprazole (Omeprazole 20 Mg Capsule.Dr) 20 mg PO DAILY@0630 [facility] Last Admin: 07/24/23 06:28 Dose: 20 mg Ropinirole HCl (Ropinirole Hcl 1 Mg Tablet) 1 mg PO BEDTIME [facility] Last Admin: 07/23/23 19:57 Dose: 1 mg Tiotropium [place] (Tiotropium [place] 2.5 Mcg Inhaler) 2 puff INHALE RDAILY [facility] Last Admin: 07/24/23 08:14 Dose: 2 puff Trazodone HCl (Trazodone Hcl 50 Mg Tablet) 50 mg PO BEDTIME MRX1 PRN PRN Reason: Insomnia Vitamin D (Cholecalciferol (Vitamin D3) 25 Mcg Tablet) 25 mcg PO DAILY [facility] Last Admin: 07/24/23 08:15 Dose: 25 mcg Allergies Allergies Allergy/AdvReac Type Severity Reaction Status Date / Time aspirin Allergy Mild Anaphylaxis Verified 07/19/23 02:34 ampicillin Allergy Rash Verified 07/19/23 02:34 Penicillins Allergy Anaphylaxis Verified 07/19/23 02:34 latex AdvReac Rash Verified 07/19/23 02:34 Latex, Natural Rubber AdvReac Rash Verified 07/19/23 02:34 seafood AdvReac Stomach Verified 07/19/23 02:34 Upset Sulfa (Sulfonamide AdvReac Hives Verified 07/19/23 02:34 Antibiotics) Assessment & Plan Assessment & Plan (1) Post traumatic stress disorder (PTSD): Status: Acute Code(s): F43.10 - Post-traumatic stress disorder, unspecified (2) Bipolar I disorder with depression: Status: Acute Code(s): F31.9 - Bipolar disorder, unspecified (3) Overdose on Tylenol: Status: Acute Code(s): T39.1X1A - Poisoning by 4-Aminophenol derivatives, accidental (unintentional), initial encounter Plan Patient admitted status post overdose worsened by social isolation recently hearing that a brother had main in chronic feelings of isolation in despair. 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 Continue lithium check lithium levels this does complicate her pain management avoid nonsteroidals she is status post Tylenol overdose recheck liver functions she is on CPAP continue inhalers for COPD would benefit from more intensive outpatient treatment she does have DMH involvement patient was cooperative does seem engage in treatment but there is a history of impulsivity Might benefit from the name may help with medication compliance 07/23: Continue current treatment plan. 07/24: Increase Gabapentin to 300 mg TID. Continue other aspects of current treatment plan Reason for continued inpatient stay Substantial Risk for: harm to self Time Spent With Patient Time: Total time managing care of this patient today ____ minutes.
[2023-07-24] MEDS: rOPINIRole HCL 1 MG TABLET PO (19:05)
[2023-07-24] MEDS: cloNIDine HCL 0.2 MG TABLET PO (19:05)
[2023-07-24] MEDS: OLANZapine 10 MG TABLET PO (19:05)
[2023-07-24 19:30] VITALS: BP 124/74; PULSE 92; RESP 16; TEMP 36.4; O2SAT 94
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
[2023-07-25] MEDS: Omeprazole 20 MG CAPSULE.DR PO (06:14)
[2023-07-25] MEDS: Nicotine 14 MG PATCH.TD24 TRANSDERMA (08:18)
[2023-07-25] MEDS: Gabapentin 300 MG CAPSULE PO (08:19)
[2023-07-25] MEDS: Lithium Carbonate ER 450 MG TABLET.ER PO (08:19)
[2023-07-25] MEDS: Ferrous Sulfate 324 MG TABLET.DR PO (08:19)
[2023-07-25] MEDS: Cyanocobalamin (Vitamin B-12) 1,000 MCG TABLET 1000 MCG PO (08:19)
[2023-07-25] MEDS: Cholecalciferol (Vitamin D3) 25 MCG TABLET PO (08:19)
[2023-07-25 09:21] VITALS: BP 148/74; PULSE 84; TEMP 36.3; O2SAT 95
[2023-07-25] MEDS: hydrOXYzine HCL 25 MG TABLET PO (11:18)
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
== END 2023-07-25 12:45 | disposition home health service (06) | DRG 753 ==
PROVIDERS: Admitting Provider Psychiatry & Neurology Psychiatry; Visit Provider Psychiatry & Neurology Psychiatry
DX: F31.30 Bipolar disorder, current episode depressed, mild or moderate severity, unspecified (principal); R45.851 Suicidal ideations; F43.10 Post-traumatic stress disorder, unspecified; J44.9 Chronic obstructive pulmonary disease, unspecified; Z23 Encounter for immunization; Z91.51 Personal history of suicidal behavior; Z59.01 Sheltered homelessness; Z91.040 Latex allergy status; Z79.899 Other long term (current) drug therapy
CPT/HCPCS: 36415; 80076; 80178; 90686; 94660

== ENCOUNTER → 2023-07-20 14:35 | Outpatient (BNV) | payer OTHER, SELFPAY | PROVIDERS: Admitting Provider Psychiatry & Neurology Psychiatry; Visit Provider Psychiatry & Neurology Psychiatry | DX: F31.4 Bipolar disorder, current episode depressed, severe, without psychotic features (principal); F43.11 Post-traumatic stress disorder, acute; T39.1X1A Poisoning by 4-Aminophenol derivatives, accidental (unintentional), initial encounter | CPT/HCPCS: 99231; 99232 ==

== ENCOUNTER → 2023-07-20 14:35 | Outpatient (BNV) | payer OTHER, SELFPAY | PROVIDERS: Admitting Provider Psychiatry & Neurology Psychiatry; Visit Provider Psychiatry & Neurology Psychiatry | DX: F31.4 Bipolar disorder, current episode depressed, severe, without psychotic features (principal); T39.1X1A Poisoning by 4-Aminophenol derivatives, accidental (unintentional), initial encounter; F43.11 Post-traumatic stress disorder, acute | CPT/HCPCS: 99231; 99232 ==

== ENCOUNTER 2023-08-02 21:12 | Emergency (ER) | payer MEDICAID, OTHER, SELFPAY ==
[2023-08-02 21:17] VITALS: BP 154/92; PULSE 92; RESP 16; TEMP 36.5; O2SAT 93; BMI 40.8
--- NOTE | 2023-08-02 21:30 | ED_ITS ---
HPI - Psych General Chief Complaint: Psychiatric Symptoms Stated Complaint: depressed & SI Time Seen by Provider: 08/02/23 21:16 Source: patient Mode of arrival: EMS Limitations: no limitations History of Present Illness HPI Narrative: Patient comes to the emergency room complaining of suicidal ideation with a plan to overdose with Tylenol. Patient is well-known to the ED/Behavioral Health. Patient denies hurting himself prior to arrival. Denies HI Related Data Home Medications Medication Instructions Recorded Confirmed lithium carbonate 450 mg 450 mg PO TID 05/14/23 08/02/23 tablet,extended release cyanocobalamin (vitamin B-12) 1,000 mcg PO DAILY 06/11/23 08/02/23 1,000 mcg tablet (Vitamin B-12) ipratropium 0.5 mg-albuterol 3 mg 3 ml inhalation RQ6H PRN Shortness 06/11/23 08/02/23 (2.5 mg base)/3 mL nebulization Of Breath Or Wheezing soln Previous Rx's Medication Instructions Recorded albuterol sulfate 90 mcg/actuation 2 puff inhalation Q4H PRN 03/22/23 aerosol inhaler (Ventolin HFA) shortness of breath or wheezing #6.7 grams cholecalciferol (vitamin D3) 25 25 mcg PO DAILY #30 tabs 03/22/23 mcg (1,000 unit) tablet clonidine HCl 0.2 mg tablet 0.2 mg PO BEDTIME #30 tabs 03/22/23 ferrous sulfate 324 mg (65 mg 324 mg PO DAILY #30 tabs 03/22/23 iron) tablet,delayed release nicotine 14 mg/24 hr daily 14 mg transdermal DAILY #30 ea 03/22/23 transdermal patch olanzapine 10 mg tablet 10 mg PO BEDTIME #30 tabs 03/22/23 omeprazole 20 mg capsule,delayed 20 mg PO DAILY@0630 #30 caps 03/22/23 release ropinirole 1 mg tablet 1 mg PO BEDTIME #30 tabs 03/22/23 tiotropium bromide 18 mcg capsule 18 mcg inhalation RDAILY #20 03/22/23 with inhalation device (Spiriva inhalations with HandiHaler) gabapentin 300 mg capsule 300 mg PO TID 14 days #42 caps 07/25/23 Allergies Allergy/AdvReac Type Severity Reaction Status Date / Time aspirin Allergy Mild Anaphylaxis Verified 07/19/23 02:34 ampicillin Allergy Rash Verified 07/19/23 02:34 Penicillins Allergy Anaphylaxis Verified 07/19/23 02:34 latex AdvReac Rash Verified 07/19/23 02:34 Latex, Natural Rubber AdvReac Rash Verified 07/19/23 02:34 seafood AdvReac Stomach Verified 07/19/23 02:34 Upset Sulfa (Sulfonamide AdvReac Hives Verified 07/19/23 02:34 Antibiotics) Review of Systems Review of Systems: Constitutional : No Weight loss, No Fever, No Chills, No Night Sweats, No Fatigue, No Malaise ENT/Mouth : No Hearing loss, No Ear Pain, No Nasal Congestion, No Sinus Pain, No Hoarseness, No sore throat, No Rhinorrhea, No Swallowing Difficulty Eyes: No Eye Pain, No Swelling, No Redness, No Foreign Body, No Discharge, No Vision Changes Cardiovascular : No Chest Pain, No SOB, No Dyspnea on Exertion, No Orthopnea, No Edema, No Palpitations Respiratory : No Cough, No Sputum, No Wheezing, No Smoke Exposure, No Dyspnea Gastrointestinal : No Nausea, No Vomiting, No Diarrhea, No Constipation, No abdominal Pain, No Hematochezia, No Melena Genitourinary : no irregular bleeding, No Dysuria, No Urinary Frequency, No Hematuria, No Urinary Incontinence, No Urgency, No Flank Pain, No Urinary Flow Changes, No Hesitancy Musculoskeletal : No joint pain, No Myalgias, No Joint Swelling Skin : No Skin Lesions, No rash Neuro : No Weakness, No Numbness, No Paresthesias, No Loss of Consciousness, No Dizziness, No Headache Psych : Complaining of anxiety and depression SI no HI Heme/Lymph: No Bruising, No Bleeding,No Lymphadenopathy Endocrine : No Polyuria, No Polydipsia, No Temperature Intolerance PMF Past Medical History Medical History Overdose on Tylenol Suicide attempt Asthma COPD (chronic obstructive pulmonary disease) Chronic lung disease Neoplasm of parotid gland Depression 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 Drug abuse Bipolar I disorder Post traumatic stress disorder (PTSD) Tobacco use disorder FABIOLA (obstructive sleep apnea) Borderline personality disorder Intermittent explosive disorder Asthma exacerbation in COPD Herpes Tobacco use Bipolar disorder COPD (chronic obstructive pulmonary disease) Surgical History History of ankle surgery History of back surgery Hx of cholecystectomy History of appendectomy Family History Family History Mother COPD (chronic obstructive pulmonary disease) Social History Social History Household Members: None Household Members Other:: [facility] in [place] Housing: Apartment Housing Other:: Sleeps on the couch at [facility] house Do you presently have visiting nurse or other home services: Yes (2 VNA, FACTORY MAINTENANCE MANAGER, 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 [employer]) Unable to assess alcohol history related to: Unknown Alcohol intake: never Patient Tobacco Use Status: Current everyday Tobacco user Tobacco use type: Cigarette Cigarette Packs Per Day: 1 Cigarettes Per Day: 20.0 Years Smoked: 40 e-Cigarette/Vaping Use: Never Used Second Hand Smoke Exposure: Yes Substance Use Type: Crack/Cocaine Advance Directives Date on File: 06/17/22 service: No Current occupational status: unemployed and disabled Sexual orientation: Straight/Heterosexual Physical Exam Vital Signs: Vital Signs: Last Vital Signs Temp 97.7 F 08/02/23 21:17 Pulse 92 08/02/23 21:17 Resp 16 08/02/23 21:17 BP 154/92 H 08/02/23 21:17 Pulse Ox 93 08/02/23 21:17 O2 Del Method Room Air 08/02/23 21:17 BMI result Body Mass Index 40.8 Const: Other: Appearance: Alert. Oriented X3. No acute distress. Eyes: Pupils equal, round and reactive to light. ENT: Pharynx normal. Neck: Normal inspection. Neck supple. No lymph nodes noted. No crepitus CVS: Normal heart rate and rhythm. Pulses normal. Normal S1 and S2 Respiratory: No respiratory distress. Breath sounds normal. No Wheezing. No rales Abdomen: Soft and nontender. No rigidity. No distention. Skin: Skin warm and dry. Normal skin color. Normal skin turgor. Extremities: No lower extremity edema. No Lacerations. No Rash Neuro: Oriented X 3. No motor deficit. No sensory deficit. Moving all extremities. No slurred speech. CN 2 through 12 grossly intact Psych: calm, cooperative, normal affect Course Course Course Narrative: -reports suicidal ideation, states she wants to overdose with Tylenol. However, patient is very cheerful, states i want to overdose with tylenol, michael rodriguez . Patient does not seem depressed, contrary to other visits, today she is in a very good mood -all of patient's labs pending -care team consult pending -physician observation started at 21:30 Discharge Plan Discharge Clinical Impression: Depression Patient Disposition: Still a Patient Prescriptions: No Action ropinirole 1 mg Tablet 1 mg PO BEDTIME Qty: 30 0RF nicotine 14 mg/24 hr Patch 24 Hour 14 mg transdermal DAILY Qty: 30 0RF olanzapine 10 mg Tablet 10 mg PO BEDTIME Qty: 30 0RF clonidine HCl 0.2 mg Tablet 0.2 mg PO BEDTIME Qty: 30 0RF Protocol: Hold for SBP< HOLD for SBP < : 90 albuterol sulfate [Ventolin HFA] 90 mcg/actuation Hfa Aerosol Inhaler 2 puff inhalation Q4H PRN (Reason: shortness of breath or wheezing) Qty: 6.7 0RF Spiriva with HandiHaler 18 mcg Capsule, W/Inhalation Device 18 mcg inhalation RDAILY Qty: 20 0RF ferrous sulfate 324 mg (65 mg iron) Tablet,Delayed Release (Dr/Ec) 324 mg PO DAILY Qty: 30 0RF omeprazole 20 mg Capsule,Delayed Release(Dr/Ec) 20 mg PO DAILY@0630 Qty: 30 0RF cholecalciferol (vitamin D3) 25 mcg (1,000 unit) Tablet 25 mcg PO DAILY Qty: 30 0RF gabapentin 300 mg Capsule 300 mg PO TID 14 Days Qty: 42 1RF lithium carbonate 450 mg tablet extended release 450 mg PO TID cyanocobalamin (vitamin B-12) [Vitamin B-12] 1,000 mcg tablet 1,000 mcg PO DAILY ipratropium-albuterol 0.5 mg-3 mg(2.5 mg base)/3 mL solution for nebulization 3 ml inhalation RQ6H PRN (Reason: Shortness Of Breath Or Wheezing)
[2023-08-02 21:59] LABS: Appearance Urine Cloudy; Color Urine Yellow; Glucose Urine UA Negative (Negative); Leukocyte Esterase Urine Small (1+) (Negative); Nitrite Urine Negative (Negative); PH 6.5 (5.0-9.0); UMIC TRIGGER UA YES; Urine Blood Negative (Negative); Urine Ketones Negative (Negative); Urine Protein Negative (Neg-Trace)
[2023-08-02 22:32] LABS: Amphetamine Screen Urine Not Detected (Not Detect); Barbiturates, Urine Not Detected (Not Detect); Benzodiazepines Screen Urine Not Detected (Not Detect); Cannabinoid Screen Urine Not Detected (Not Detect); Cocaine Screen Urine POSITIVE (Not Detect); Fentanyl, urine Not Detected (Not Detect); Opiate Screen Urine Not Detected (Not Detect); Phencyclidine Screen Urine Not Detected (Not Detect)
[2023-08-02 22:46] LABS: Bacteria Urine 4+ (None Seen); Hyaline Casts Urine 0-2 /LPF (0-2); RBC Urine 0-2 /HPF (0-2); Squamous Epithelial Cell Urine >20 /HPF (0-2); WBC Urine 21-50 /HPF (0-5)
[2023-08-02 23:12] LABS: Lithium 0.36 mmol/L (0.60-1.20)
[2023-08-02 23:24] LABS: Acetaminophen LAB < 17 mcg/mL (<30); Salicylate < 5.0 mg/dL (15-30)
[2023-08-02 23:34] LABS: Alanine Aminotransferase 17 U/L (0-31); Albumin Level 4.5 g/dL (3.5-5.0); Alkaline Phosphatase 71 U/L (39-117); Anion Gap 18 (12-20); Aspartate Amino Transferase 18 U/L (5-31); Bilirubin Total 0.4 mg/dL (0.0-1.0); Blood Urea Nitrogen 9 mg/dL (9-16); Calcium 9.6 mg/dL (8.4-10.2); Carbon Dioxide 21 mmol/L (22-29); Chloride 106 mmol/L (96-108); Creatinine Clr Calc Pharmacy 118.4; Estimated Glomerular Filt Rate > 60; Ethanol < 10 mg/dL; Glucose Random 134 mg/dL (60-115); Potassium 4.1 mmol/L (3.3-5.1); Sodium 141 mmol/L (135-145); Total Protein 7.1 g/dL (6.5-8.0)
--- NOTE | 2023-08-03 05:46 | PC.NURSE ---
Patient slept through the night, no distress observed/reported, behavior non concerning and pleasant, labs completed/resulted, med rec completed/pending provider's approval, care consult ordered/pending evaluation, ambulates safely with walker, VSS, will continue to monitor.
[2023-08-03 06:33] VITALS: BP 133/76; PULSE 69; RESP 18; TEMP 36.7; O2SAT 92
--- NOTE | 2023-08-03 13:52 | MHC.CARE ---
Pt referred to [facility]
[2023-08-03] MEDS: Lithium Carbonate ER 450 MG TABLET.ER PO ×2 (15:10→20:22)
[2023-08-03] MEDS: Gabapentin 300 MG CAPSULE PO ×2 (15:10→20:22)
[2023-08-03 15:38] VITALS: BP 117/62; PULSE 70; RESP 20; TEMP 36.6; O2SAT 95
--- NOTE | 2023-08-03 17:46 | PC.NURSE ---
Bhavana has been resting in bed for most of this shift. She has been calm and pleasant. No behavioral concerns. She does still verbalize that she doesn't feel like she would be safe out of the hospital. Bhavana ambulates with a walker. Independent with all ADL's. Appetite good.
[2023-08-03] MEDS: rOPINIRole HCL 1 MG TABLET PO (20:22)
[2023-08-03] MEDS: OLANZapine 10 MG TABLET PO (20:23)
[2023-08-03] MEDS: cloNIDine HCL 0.2 MG TABLET PO (20:23)
[2023-08-03 20:26] VITALS: BP 142/96; PULSE 71; RESP 20; TEMP 36.3; O2SAT 96
--- NOTE | 2023-08-03 20:29 | PHA.MEDREC ---
Pharmacy Consult ? Medication Reconciliation Pharmacy has reviewed the medication reconciliation compelted by Otis. Patient recently discharged on 07/25 from [facility] [place] [facility] Gorge Michel
--- NOTE | 2023-08-04 05:20 | PC.NURSE ---
Patient slept through the night, no distress observed/reported, behavior non concerning, disposition per care team is respite bed search, medication compliant, labs completed/resulted, VSS, will continue to monitor.
[2023-08-04] MEDS: Omeprazole 20 MG CAPSULE.DR PO (06:04)
--- NOTE | 2023-08-04 07:33 | PC.NURSE ---
patient appears to remain asleep at present respirations are even and unlabored patient appears in no distress
[2023-08-04] MEDS: Nicotine 14 MG PATCH.TD24 TRANSDERMA (08:36)
[2023-08-04] MEDS: Lithium Carbonate ER 450 MG TABLET.ER PO (08:36)
[2023-08-04] MEDS: Cholecalciferol (Vitamin D3) 25 MCG TABLET PO (08:36)
[2023-08-04] MEDS: Cyanocobalamin (Vitamin B-12) 1,000 MCG TABLET 1000 MCG PO (08:36)
[2023-08-04] MEDS: Gabapentin 300 MG CAPSULE PO (08:36)
[2023-08-04] MEDS: Ferrous Sulfate 324 MG TABLET.DR PO (08:36)
== END 2023-08-04 13:41 | disposition home or self-care (01) ==
PROVIDERS: Emergency Provider Emergency Medicine
DX: R45.851 Suicidal ideations (principal); F31.9 Bipolar disorder, unspecified; F43.10 Post-traumatic stress disorder, unspecified; F17.210 Nicotine dependence, cigarettes, uncomplicated; Z91.51 Personal history of suicidal behavior; Z79.899 Other long term (current) drug therapy
CPT/HCPCS: 36415; 80053; 80143; 80178; 80179; 80307; 81001; 81003; 99284; 99285; S9485

== ENCOUNTER 2023-09-10 16:14 | Emergency (ER) | payer MEDICAID, SELFPAY ==
--- NOTE | ~2023-09-10 | XR_ITS ---
EXAMINATION: XR ABDOMEN KUB CLINICAL INDICATION: Abdominal pain. COMPARISON: CT abdomen/pelvis 12/26/2022. TECHNIQUE: AP view of the abdomen. FINDINGS: Nonobstructive bowel gas pattern. No significant stool burden. Right upper quadrant surgical clips. No acute osseous findings. XR/XR KUB IMPRESSION: Nonobstructive bowel gas pattern. No significant stool burden.
[2023-09-10 16:25] VITALS: BP 130/67; PULSE 94; RESP 18; TEMP 37.1; O2SAT 92; BMI 45.2
--- NOTE | 2023-09-10 16:29 | PC.NURSE ---
Pt reporting 2 hours ago she ate 2 hotdogs, after eating them got extreme epigastric burning, and episodes of vomiting up food, denies blood. Reporting 10/10 pain. Received fluids and zofran from EMS.
[2023-09-10] MEDS: Magnesium Hydrox/Alum Hydrox 30 ML ORAL.SUSP PO (16:57)
[2023-09-10] MEDS: Lidocaine HCl Viscous 2 % 15 ML SOLUTION 10 ML MUCOUS MEM (16:57)
[2023-09-10 17:54] LABS: Appearance Urine Clear; Color Urine Yellow; Glucose Urine UA Negative (Negative); Leukocyte Esterase Urine Negative (Negative); Nitrite Urine Negative (Negative); PH 6.5 (5.0-9.0); Urine Blood Negative (Negative); Urine Ketones Negative (Negative); Urine Protein Negative (Neg-Trace)
--- NOTE | 2023-09-10 18:29 | PC.NURSE ---
Pt reporting she has a ride home if she is able to get d/c at this time, she reports she is feeling much better at this time. Lab work ordered at this time, MD made aware of patient requesting to leave, MD in agreement, no need to get lab work at this time, pt reporting she also has lab work ordered from PCP soon
--- NOTE | 2023-09-10 18:34 | ED.ABDPAIN ---
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 Related Data Home Medications Medication Instructions Recorded Confirmed lithium carbonate 450 mg 450 mg PO TID 05/14/23 08/02/23 tablet,extended release cyanocobalamin (vitamin B-12) 1,000 mcg PO DAILY 06/11/23 08/02/23 1,000 mcg tablet (Vitamin B-12) ipratropium 0.5 mg-albuterol 3 mg 3 ml inhalation RQ6H PRN Shortness 06/11/23 08/02/23 (2.5 mg base)/3 mL nebulization Of Breath Or Wheezing soln Previous Rx's Medication Instructions Recorded albuterol sulfate 90 mcg/actuation 2 puff inhalation Q4H PRN 03/22/23 aerosol inhaler (Ventolin HFA) shortness of breath or wheezing #6.7 grams cholecalciferol (vitamin D3) 25 25 mcg PO DAILY #30 tabs 03/22/23 mcg (1,000 unit) tablet clonidine HCl 0.2 mg tablet 0.2 mg PO BEDTIME #30 tabs 03/22/23 ferrous sulfate 324 mg (65 mg 324 mg PO DAILY #30 tabs 03/22/23 iron) tablet,delayed release nicotine 14 mg/24 hr daily 14 mg transdermal DAILY #30 ea 03/22/23 transdermal patch olanzapine 10 mg tablet 10 mg PO BEDTIME #30 tabs 03/22/23 omeprazole 20 mg capsule,delayed 20 mg PO DAILY@0630 #30 caps 03/22/23 release ropinirole 1 mg tablet 1 mg PO BEDTIME #30 tabs 03/22/23 tiotropium bromide 18 mcg capsule 18 mcg inhalation RDAILY #20 03/22/23 with inhalation device (Spiriva inhalations with HandiHaler) gabapentin 300 mg capsule 300 mg PO TID 14 days #42 caps 07/25/23 Allergies Allergy/AdvReac Type Severity Reaction Status Date / Time aspirin Allergy Mild Anaphylaxis Verified 09/10/23 16:27 ampicillin Allergy Rash Verified 09/10/23 16:27 Penicillins Allergy Anaphylaxis Verified 09/10/23 16:27 latex AdvReac Rash Verified 09/10/23 16:27 Latex, Natural Rubber AdvReac Rash Verified 09/10/23 16:27 seafood AdvReac Stomach Verified 09/10/23 16:27 Upset Sulfa (Sulfonamide AdvReac Hives Verified 09/10/23 16:27 Antibiotics) Review of Systems Review of Systems Pertinent positives and negatives as stated in HPI PENDING SALE TO [facility] Past Medical History Source: nursing notes reviewed Medical History Overdose on Tylenol Suicide attempt Asthma COPD (chronic obstructive pulmonary disease) Chronic lung disease Neoplasm of parotid gland Depression 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 Drug abuse Bipolar I disorder Post traumatic stress disorder (PTSD) Tobacco use disorder FABIOLA (obstructive sleep apnea) Borderline personality disorder Intermittent explosive disorder Asthma exacerbation in COPD Herpes Tobacco use Bipolar disorder COPD (chronic obstructive pulmonary disease) Surgical History History of ankle surgery History of back surgery Hx of cholecystectomy History of appendectomy Family History Family History Mother COPD (chronic obstructive pulmonary disease) Social History Social History Household Members: None Household Members Other:: [facility] in [place] Housing: Apartment Housing Other:: Sleeps on the couch at [facility] house Do you presently have visiting nurse or other home services: Yes (2 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, 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, 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 [employer]) Unable to assess alcohol history related to: Unknown Alcohol intake: never Patient Tobacco Use Status: Current everyday Tobacco user Tobacco use type: Cigarette Cigarette Packs Per Day: 1 Cigarettes Per Day: 20.0 Years Smoked: 40 e-Cigarette/Vaping Use: Never Used Second Hand Smoke Exposure: Yes Substance Use Type: Crack/Cocaine Advance Directives: Yes Advance Directives on File: Yes Advance Directives Date on File: 06/17/22 service: No Current occupational status: unemployed and disabled Sexual orientation: Straight/Heterosexual Physical Exam ED Vital Signs: Vital Signs - 24 hr 09/10/23 16:25 Temperature 98.8 F Pulse Rate 94 Respiratory Rate 18 Blood Pressure 130/67 Pulse Oximetry 92 Oxygen Delivery Method Room Air BMI result Body Mass Index 45.2 VITAL SIGNS: Reviewed. GENERAL: Well developed, well nourished, in some distress. HEAD: Normocephalic/atraumatic EYES: PERRLA, EOMI EARS: Ext canals without abnormality NOSE: Nares patent bilateral OROPHARYNX: no oral lesions noted, posterior pharynx clear NECK: Supple, no adenopathy LUNGS: Normal breath sounds. No adventitious sounds or accessory muscle use. SpO2<92> CARDIOVASCULAR: Regular rate and rhythm without noted murmurs ABDOMEN: Soft, minimal ttp at epigastrum without rebound, non-distended with bowel sounds. MUSCULOSKELETAL: No tenderness, deformities, or effusions noted on gross inspection. EXTREMITIES: No cyanosis, clubbing or edema. SKIN: Inspection of the skin reveals no rashes NEUROLOGIC: Alert and oriented x 4. Strength and sensation to light touch were grossly intact x 4. Medical Decision Making Medical Decision Making [facility] Narrative: 53F with history and clinical presentation most likely GERD/acid reflux no history of clinical findings to suggest a pancreatitis or cholecystitis no symptoms to suggest infectious etiology such as pneumonia. I reviewed all investigations and urinalysis is negative for UTI or hematuria. KUB demonstrates nonobstructive bowel gas pattern, no significant stool burden and otherwise my interpretation is in agreement with radiology's impression. In addition, for the findings regarding surgical clips in the right upper quadrant further ruling out any cholecystitis. Patient received a GI cocktail and endorses that she is feeling so much better and her symptoms have completely resolved. She was discharged. Differential Diagnosis Differential Diagnoses: The differential diagnosis associated with the presentation includes Please see the discussion above Admission/Observation Consideration of admission/observation: Escalation of care including admission/observation considered please see the discussion above Lab Data Labs: Lab Results 09/10/23 Range/Units 17:48 Urine Color Yellow Urine Appearance Clear Urine pH 6.5 (5.0-9.0) Ur Specific [place] 1.020 (1.005-1.025) Urine Protein Negative (Neg-Trace) mg/dL Urine Glucose (UA) Negative (Negative) mg/dL Urine Ketones Negative (Negative) mg/dL Urine Blood Negative (Negative) Urine Nitrite Negative (Negative) Ur Leukocyte Esterase Negative (Negative) Radiology Impression Discussion of test interpretation with radiology: I have reviewed the radiologist's reading. Radiologist Impression: please see the discussion above External Record Review External record reviewed: Outpatient record, Prior outpatient labs and Prior outpatient radiology Medications Administered Discontinued Medications Generic Name Dose Route Start Last Admin Trade Name Freq PRN Reason Stop Dose Admin Al Hydroxide/Mg Hydroxide 30 ml 09/10/23 16:48 09/10/23 16:57 Magnesium Hydrox/Alum Hydrox 30 Ml Oral.Susp PO 09/10/23 16:49 30 ml ONCE ONE Administration Lidocaine HCl 10 ml 09/10/23 16:48 09/10/23 16:57 Lidocaine Hcl Viscous 2 % 15 Ml Solution MUCOUS MEM 09/10/23 16:49 10 ml ONCE ONE Administration Discharge Plan Discharge Clinical Impression: GERD (gastroesophageal reflux disease) Patient Disposition: Home, Self-Care Instructions: Diet for Stomach Ulcers and Gastritis (ED), Gastroesophageal Reflux Disease (ED) Additional Instructions: 1. Resume all home medications as prescribed. 2. Follow-up with your primary care doctor in next 1-2 days. Return to the ER for worsening symptoms. Prescriptions: No Action ropinirole 1 mg Tablet 1 mg PO BEDTIME Qty: 30 0RF nicotine 14 mg/24 hr Patch 24 Hour 14 mg transdermal DAILY Qty: 30 0RF olanzapine 10 mg Tablet 10 mg PO BEDTIME Qty: 30 0RF clonidine HCl 0.2 mg Tablet 0.2 mg PO BEDTIME Qty: 30 0RF Protocol: Hold for SBP< HOLD for SBP < : 90 albuterol sulfate [Ventolin HFA] 90 mcg/actuation Hfa Aerosol Inhaler 2 puff inhalation Q4H PRN (Reason: shortness of breath or wheezing) Qty: 6.7 0RF tiotropium bromide [Spiriva with HandiHaler] 18 mcg Capsule, W/Inhalation Device 18 mcg inhalation RDAILY Qty: 20 0RF ferrous sulfate 324 mg (65 mg iron) Tablet,Delayed Release (Dr/Ec) 324 mg PO DAILY Qty: 30 0RF omeprazole 20 mg Capsule,Delayed Release(Dr/Ec) 20 mg PO DAILY@0630 Qty: 30 0RF cholecalciferol (vitamin D3) 25 mcg (1,000 unit) Tablet 25 mcg PO DAILY Qty: 30 0RF gabapentin 300 mg Capsule 300 mg PO TID 14 Days Qty: 42 1RF lithium carbonate 450 mg tablet extended release 450 mg PO TID cyanocobalamin (vitamin B-12) [Vitamin B-12] 1,000 mcg tablet 1,000 mcg PO DAILY ipratropium-albuterol 0.5 mg-3 mg(2.5 mg base)/3 mL solution for nebulization 3 ml inhalation RQ6H PRN (Reason: Shortness Of Breath Or Wheezing) Interventions: ED Discharge Assessment Last Done: 09/10/23 18:46 Discharge Date/Time: 09/10/23 18:47
== END 2023-09-10 18:47 | disposition home or self-care (01) ==
PROVIDERS: Emergency Provider Student in an Organized Health Care Education/Training Program
DX: K21.9 Gastro-esophageal reflux disease without esophagitis (principal); Z79.899 Other long term (current) drug therapy
CPT/HCPCS: 74018; 81003; 99283; 99284

== ENCOUNTER 2023-09-27 21:48 | Emergency (ER) | payer MEDICAID, OTHER, SELFPAY ==
[2023-09-27 22:14] VITALS: BP 138/88; BP 165/83; PULSE 107; PULSE 120; RESP 18; TEMP 36.6; O2SAT 107; O2SAT 96; BMI 43.9
[2023-09-27 22:19] LABS: Amphetamine Screen Urine Not Detected (Not Detect); Appearance Urine Cloudy; Barbiturates, Urine Not Detected (Not Detect); Benzodiazepines Screen Urine Not Detected (Not Detect); Cannabinoid Screen Urine Not Detected (Not Detect); Cocaine Screen Urine POSITIVE (Not Detect); Color Urine Yellow; Fentanyl, urine POSITIVE (Not Detect); Glucose Urine UA Negative (Negative); Leukocyte Esterase Urine Trace (Negative); Nitrite Urine Negative (Negative); Opiate Screen Urine Not Detected (Not Detect); Phencyclidine Screen Urine Not Detected (Not Detect); Specific Gravity - Urine 1.015 (1.005-1.025); UMIC TRIGGER UACC YES; Urine Blood Negative (Negative); Urine Ketones Trace mg/dL (Negative); Urine Protein 100 (2+) mg/dL (Neg-Trace)
[2023-09-27 22:20] LABS: UPreg QC Valid YES; Urine Pregnancy NEGATIVE (NEGATIVE)
[2023-09-27 22:30] LABS: Bacteria Urine 4+ (None Seen); Squamous Epithelial Cell Urine >20 /HPF (0-2); UACC Culture Trigger YES; WBC Urine 21-50 /HPF (0-5)
--- NOTE | 2023-09-27 23:13 | ED_ITS ---
HPI - Psych General Chief Complaint: Psychiatric Symptoms Stated Complaint: si Time Seen by Provider: 09/27/23 22:34 Source: patient Mode of arrival: ambulatory Limitations: no limitations History of Present Illness HPI Narrative: Patient with History of PTSD depression cocaine abuse started using cocaine again, depressed feel like committing suicide by jumping over the bridge patient has been here frequently for same Related Data Home Medications Medication Instructions Recorded Confirmed lithium carbonate 450 mg 450 mg PO TID 05/14/23 09/27/23 tablet,extended release cyanocobalamin (vitamin B-12) 1,000 mcg PO DAILY 06/11/23 09/27/23 1,000 mcg tablet (Vitamin B-12) ipratropium 0.5 mg-albuterol 3 mg 3 ml inhalation RQ6H PRN Shortness 06/11/23 09/27/23 (2.5 mg base)/3 mL nebulization Of Breath Or Wheezing soln Previous Rx's Medication Instructions Recorded albuterol sulfate 90 mcg/actuation 2 puff inhalation Q4H PRN 03/22/23 aerosol inhaler (Ventolin HFA) shortness of breath or wheezing #6.7 grams cholecalciferol (vitamin D3) 25 25 mcg PO DAILY #30 tabs 03/22/23 mcg (1,000 unit) tablet clonidine HCl 0.2 mg tablet 0.2 mg PO BEDTIME #30 tabs 03/22/23 ferrous sulfate 324 mg (65 mg 324 mg PO DAILY #30 tabs 03/22/23 iron) tablet,delayed release nicotine 14 mg/24 hr daily 14 mg transdermal DAILY #30 ea 03/22/23 transdermal patch olanzapine 10 mg tablet 10 mg PO BEDTIME #30 tabs 03/22/23 omeprazole 20 mg capsule,delayed 20 mg PO DAILY@0630 #30 caps 03/22/23 release ropinirole 1 mg tablet 1 mg PO BEDTIME #30 tabs 03/22/23 tiotropium bromide 18 mcg capsule 18 mcg inhalation RDAILY #20 03/22/23 with inhalation device (Spiriva inhalations with HandiHaler) gabapentin 300 mg capsule 300 mg PO TID 14 days #42 caps 07/25/23 Allergies Allergy/AdvReac Type Severity Reaction Status Date / Time aspirin Allergy Mild Anaphylaxis Verified 09/10/23 16:27 ampicillin Allergy Rash Verified 09/10/23 16:27 Penicillins Allergy Anaphylaxis Verified 09/10/23 16:27 latex AdvReac Rash Verified 09/10/23 16:27 Latex, Natural Rubber AdvReac Rash Verified 09/10/23 16:27 seafood AdvReac Stomach Verified 09/10/23 16:27 Upset Sulfa (Sulfonamide AdvReac Hives Verified 09/10/23 16:27 Antibiotics) Review of Systems 2 Review of Systems: Yes all other systems are reviewed and are negative [facility] Past Medical History Medical History Overdose on Tylenol Suicide attempt Asthma COPD (chronic obstructive pulmonary disease) Chronic lung disease Neoplasm of parotid gland Depression 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 Drug abuse Bipolar I disorder Post traumatic stress disorder (PTSD) Tobacco use disorder FABIOLA (obstructive sleep apnea) Borderline personality disorder Intermittent explosive disorder Asthma exacerbation in COPD Herpes Tobacco use Bipolar disorder COPD (chronic obstructive pulmonary disease) Surgical History History of ankle surgery History of back surgery Hx of cholecystectomy History of appendectomy Family History Family History Mother COPD (chronic obstructive pulmonary disease) Social History Social History Household Members: None Household Members Other:: Longterm in [place] Housing: Apartment Housing Other:: Sleeps on the couch at [facility] house Do you presently have visiting nurse or other home services: Yes (2 VNA, [employer], 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 [employer]) Unable to assess alcohol history related to: Unknown Alcohol intake: never Comment: pt has sitter in room Patient Tobacco Use Status: Current everyday Tobacco user Tobacco use type: Cigarette Cigarette Packs Per Day: 1 Cigarettes Per Day: 20.0 Years Smoked: 40 e-Cigarette/Vaping Use: Never Used Second Hand Smoke Exposure: Yes Substance Use Type: Crack/Cocaine Advance Directives: Yes Advance Directives on File: Yes Advance Directives Date on File: 06/17/22 service: No Current occupational status: unemployed and disabled Sexual orientation: Straight/Heterosexual Physical Exam 2 Vital Signs: Vital Signs: Last Vital Signs Temp 97.7 F 09/27/23 23:55 Pulse 90 09/27/23 23:55 Resp 17 09/27/23 23:55 BP 141/42 H 09/27/23 23:55 Pulse Ox 90 L 09/27/23 23:55 O2 Del Method Room Air 09/27/23 23:55 BMI result Body Mass Index 43.9 Appearance: Alert. Oriented X3. No acute distress. Eyes: PERRLA, No Nystagmus ENT: Pharynx normal. Oral Mucosa moist Neck: Normal inspection. Neck supple. CVS: Normal heart rate and rhythm. Pulses normal. Respiratory: No respiratory distress. Equal air entry bilateral, no wheezing/rales/rhonchi Abdomen: Soft and nontender. Bowel sounds are present, no mass palpable, no CVA tenderness Skin: Skin warm and dry. Normal skin color. Normal skin turgor. Extremities: No lower extremity edema. No calf tenderness psych: Feel depressed still suicidal no hallucination or delusion Neuro: Oriented X 3. No motor deficit. No sensory deficit.No cerebellar signs , cranial nerves II-XII intact Medical Decision Making Medical Decision Making [facility] Narrative: Patient with substance abuse with depression with consult care team for evaluation Differential Diagnosis Differential Diagnoses: The differential diagnosis associated with the presentation includes Substance abuse mood disorder depression suicidality Lab Data [facility] Lab Attestation statement: I reviewed the patient's lab results. 09/27/23 23:49 09/27/23 23:49 Labs: Lab Results 09/27/23 09/27/23 Range/Units 22:05 23:49 WBC 14.0 H (4.8-10.8) X10*3/uL RBC 4.78 (4.20-5.50) X10*6/uL Hgb 14.9 (12.0-16.0) g/dl Hct 45.6 (37.0-47.0) % MCV 95.4 (80.0-98.0) fL MCH 31.2 (27.0-33.0) pg MCHC 32.7 (31.0-35.0) g/dl RDW 13.6 (11.0-16.0) % Plt Count 309 D (160-400) X10*3/uL MPV 9.6 (9.4-12.3) fL Immature Gran % (Auto) 0.4 (0.0-0.4) % Neut % (Auto) 73.3 H (45-73) % Lymph % (Auto) 19.5 L (20-40) % [place] % (Auto) 5.7 (2-11) % Eos % (Auto) 0.4 (0-4) % Baso % (Auto) 0.7 (0-2) % Lymph # (Auto) 2.7 (1.2-4.9) X10*3/uL [place] # (Auto) 0.8 (0.1-1.2) X10*3/uL Eos # (Auto) 0.1 (0.0-0.4) X10*3/uL Baso # (Auto) 0.1 (0.0-0.2) X10*3/uL Abs Immat Gran (auto) 0.05 H (0.00-0.03) X10*3/uL Absolute Neuts (auto) 10.3 H (2.0-8.3) x10*3/uL Absolute Nucleated RBC 0.000 (0.0-0.012) X10*3/uL Nucleated RBC % (auto) 0.0 (0.0-0.2) /100WBC Sodium 139 (135-145) mmol/L Potassium 4.1 (3.3-5.1) mmol/L Chloride 103 (96-108) mmol/L Carbon Dioxide 26 (22-29) mmol/L Anion Gap 14 (12-20) BUN 10 (9-16) mg/dL Creatinine 0.80 (0.5-1.4) mg/dL Estim Creat Clear Calc 95.5 Estimated GFR > 60 Random Glucose 109 (60-115) mg/dL Calcium 10.0 (8.4-10.2) mg/dL Total Bilirubin 0.3 (0.0-1.0) mg/dL AST 14 (5-31) U/L ALT 13 (0-31) U/L Alkaline Phosphatase 97 (39-117) U/L Total Protein 7.7 (6.5-8.0) g/dL Albumin 4.7 (3.5-5.0) g/dL Urine Color Yellow Urine Appearance Cloudy Urine pH 6.0 (5.0-9.0) Ur Specific [place] 1.015 (1.005-1.025) Urine Protein 100 (2+) H (Neg-Trace) mg/dL Urine Glucose (UA) Negative (Negative) mg/dL Urine Ketones Trace (Negative) mg/dL Urine Blood Negative (Negative) Urine Nitrite Negative (Negative) Ur Leukocyte Esterase Trace H (Negative) Urine RBC 3-5 H (0-2) /HPF Urine WBC 21-50 H (0-5) /HPF Ur Squamous Epith Cells >20 (0-2) /HPF Urine Bacteria 4+ (None Seen) Hyaline Casts 11-20 (0-2) /LPF Urine Test NEGATIVE (NEGATIVE) Salicylates < 5.0 L (15-30) mg/dL Urine Opiates Screen Not Detected (Not Detect) Urine Fentanyl Screen POSITIVE H (Not Detect) Acetaminophen < 3 (<30) mcg/mL Ur Barbiturates Screen Not Detected (Not Detect) Ur Phencyclidine Scrn Not Detected (Not Detect) Ur Amphetamines Screen Not Detected (Not Detect) U Benzodiazepines Scrn Not Detected (Not Detect) [place] 0.71 (0.60-1.20) mmol/L Urine Cocaine Screen POSITIVE H (Not Detect) U Marijuana (THC) Screen Not Detected (Not Detect) Ethyl Alcohol < 10 mg/dL Discharge Plan Discharge Clinical Impression: Depression with suicidal ideation, Polysubstance abuse Patient Disposition: Still a Patient Prescriptions: No Action ropinirole 1 mg Tablet 1 mg PO BEDTIME Qty: 30 0RF nicotine 14 mg/24 hr Patch 24 Hour 14 mg transdermal DAILY Qty: 30 0RF olanzapine 10 mg Tablet 10 mg PO BEDTIME Qty: 30 0RF clonidine HCl 0.2 mg Tablet 0.2 mg PO BEDTIME Qty: 30 0RF Protocol: Hold for SBP< HOLD for SBP < : 90 albuterol sulfate [Ventolin HFA] 90 mcg/actuation Hfa Aerosol Inhaler 2 puff inhalation Q4H PRN (Reason: shortness of breath or wheezing) Qty: 6.7 0RF tiotropium bromide [Spiriva with HandiHaler] 18 mcg Capsule, W/Inhalation Device 18 mcg inhalation RDAILY Qty: 20 0RF ferrous sulfate 324 mg (65 mg iron) Tablet,Delayed Release (Dr/Ec) 324 mg PO DAILY Qty: 30 0RF omeprazole 20 mg Capsule,Delayed Release(Dr/Ec) 20 mg PO DAILY@0630 Qty: 30 0RF cholecalciferol (vitamin D3) 25 mcg (1,000 unit) Tablet 25 mcg PO DAILY Qty: 30 0RF gabapentin 300 mg Capsule 300 mg PO TID 14 Days Qty: 42 1RF lithium carbonate 450 mg tablet extended release 450 mg PO TID cyanocobalamin (vitamin B-12) [Vitamin B-12] 1,000 mcg tablet 1,000 mcg PO DAILY ipratropium-albuterol 0.5 mg-3 mg(2.5 mg base)/3 mL solution for nebulization 3 ml inhalation RQ6H PRN (Reason: Shortness Of Breath Or Wheezing) Interventions: [place]-Suicide Risk Severity Scale Last Done: 09/27/23 23:44
[2023-09-27 23:55] VITALS: BP 141/42; PULSE 90; RESP 17; TEMP 36.5; O2SAT 90
[2023-09-27 23:55] LABS: MANUAL DIFF FLAG NO
[2023-09-27 23:56] LABS: Basophils Absolute Auto 0.1 X10*3/uL (0.0-0.2); Basophils Percent Auto 0.7 % (0-2); Eosinophils Absolute Auto 0.1 X10*3/uL (0.0-0.4); Eosinophils Percent Auto 0.4 % (0-4); Hematocrit 45.6 % (37.0-47.0); Hemoglobin 14.9 g/dl (12.0-16.0); Imm Gran Abs Auto 0.05 X10*3/uL (0.00-0.03); Imm Gran Pct Auto 0.4 % (0.0-0.4); Lymphocytes Absolute Auto 2.7 X10*3/uL (1.2-4.9); Lymphocytes Percent Auto 19.5 % (20-40); Mean Corpuscular HGB Conc 32.7 g/dl (31.0-35.0); Mean Corpuscular Hemoglobin 31.2 pg (27.0-33.0); Mean Corpuscular Volume 95.4 fL (80.0-98.0); Mean Platelet Volume 9.6 fL (9.4-12.3); Monocytes Absolute Auto 0.8 X10*3/uL (0.1-1.2); Monocytes Percent Auto 5.7 % (2-11); Neutrophils Absolute Auto 10.3 x10*3/uL (2.0-8.3); Neutrophils Percent Auto 73.3 % (45-73); Platelet Count 309 X10*3/uL (160-400); Red Blood Count 4.78 X10*6/uL (4.20-5.50); Red Cell Distribution Width 13.6 % (11.0-16.0)
[2023-09-28 00:11] LABS: Lithium 0.71 mmol/L (0.60-1.20)
[2023-09-28 00:17] LABS: Alanine Aminotransferase 13 U/L (0-31); Albumin Level 4.7 g/dL (3.5-5.0); Alkaline Phosphatase 97 U/L (39-117); Anion Gap 14 (12-20); Aspartate Amino Transferase 14 U/L (5-31); Bilirubin Total 0.3 mg/dL (0.0-1.0); Blood Urea Nitrogen 10 mg/dL (9-16); Carbon Dioxide 26 mmol/L (22-29); Chloride 103 mmol/L (96-108); Creatinine Clr Calc Pharmacy 95.5; Estimated Glomerular Filt Rate > 60; Ethanol < 10 mg/dL; Glucose Random 109 mg/dL (60-115); Potassium 4.1 mmol/L (3.3-5.1); Sodium 139 mmol/L (135-145); Total Protein 7.7 g/dL (6.5-8.0)
[2023-09-28 00:21] LABS: Acetaminophen LAB < 3 mcg/mL (<30); Salicylate < 5.0 mg/dL (15-30)
--- NOTE | 2023-09-28 05:42 | PC.NURSE ---
patient appears to have slept uninterruptedly for several hours, patient appears in no distress presently.
[2023-09-28] MEDS: Gabapentin 300 MG CAPSULE PO (11:04)
[2023-09-28] MEDS: Lithium Carbonate ER 450 MG TABLET.ER PO (11:05)
[2023-09-28] MEDS: Cholecalciferol (Vitamin D3) 25 MCG TABLET PO (11:05)
[2023-09-28] MEDS: Nicotine 14 MG PATCH.TD24 TRANSDERMA (11:05)
[2023-09-28] MEDS: Cyanocobalamin (Vitamin B-12) 1,000 MCG TABLET 1000 MCG PO (11:05)
[2023-09-28] MEDS: Ferrous Sulfate 324 MG TABLET.DR PO (11:05)
[2023-09-28 11:52] VITALS: RESP 18
[2023-09-28 11:59] VITALS: BP 110/62; PULSE 80; RESP 18; TEMP 36.4; O2SAT 94
--- NOTE | 2023-09-28 12:00 | PC.NURSE ---
patient is alert and oriented and able to make needs known. Patient has a good appetite and ate 100% of breakfast. Patient is advocating for discharge and said she is looking forward to going home. No SI/HI at this time. Patient is drinking coffee while sitting in bed at this time.
[2023-09-28 14:34] VITALS: PULSE 18
--- NOTE | 2023-09-28 14:35 | PC.NURSE ---
Patient is alert and oriented and able to make needs known. Patient advocating for discharge. Denies SI/HI/AH/VH at this time. Patient discharged from facility with belongings.
== END 2023-09-28 14:39 | disposition home or self-care (01) ==
PROVIDERS: Emergency Medicine; Emergency Provider Internal Medicine
DX: R45.851 Suicidal ideations (principal); F32.A Depression, unspecified; F19.10 Other psychoactive substance abuse, uncomplicated; F31.9 Bipolar disorder, unspecified; F43.10 Post-traumatic stress disorder, unspecified; F60.3 Borderline personality disorder; F17.210 Nicotine dependence, cigarettes, uncomplicated; Z79.899 Other long term (current) drug therapy
CPT/HCPCS: 36415; 80053; 80143; 80178; 80179; 80307; 81001; 81025; 85025; 87086; 99284; S9485

== ENCOUNTER 2023-10-08 03:42 | Emergency (ER) | payer MEDICAID, SELFPAY ==
[2023-10-08] VITALS (7 sets, daily range): BP systolic 103–115; BP diastolic 68–74; PULSE 67–83; RESP 16–26; TEMP 36.7–37.1; O2SAT 92–95; BMI 33.9
--- NOTE | 2023-10-08 | ECG_ITS ---
Test Reason : CHEST PAIN Blood Pressure : / mmHG Vent. Rate : 076 BPM Atrial Rate : 076 BPM P-R Int : 148 ms QRS Dur : 080 ms QT Int : 386 ms P-R-T Axes : 033 025 026 degrees QTc Int : 434 ms Normal sinus rhythm Nonspecific T wave abnormality Abnormal ECG When compared with ECG of 19-JUL-2023 18:47, No significant change was found Referred By: Generic ED Physician Electronically Signed By:ALEJANDRO MCCLELLAN
--- NOTE | ~2023-10-08 | XR_ITS ---
EXAMINATION: XR CHEST CLINICAL INFORMATION: Chest pain. COMPARISON: 06/11/2023. TECHNIQUE: Frontal view of the chest was obtained. FINDINGS: No significant abnormality is noted involving the heart, lungs, mediastinum, bony thorax or soft tissues. XR/XR chest 1V IMPRESSION: No active cardiopulmonary disease.
[2023-10-08 04:02] LABS: MANUAL DIFF FLAG NO
[2023-10-08 04:03] LABS: Basophils Absolute Auto 0.1 X10*3/uL (0.0-0.2); Basophils Percent Auto 1.1 % (0-2); Eosinophils Absolute Auto 0.2 X10*3/uL (0.0-0.4); Eosinophils Percent Auto 1.9 % (0-4); Hematocrit 43.6 % (37.0-47.0); Imm Gran Abs Auto 0.02 X10*3/uL (0.00-0.03); Imm Gran Pct Auto 0.2 % (0.0-0.4); Lymphocytes Absolute Auto 2.8 X10*3/uL (1.2-4.9); Lymphocytes Percent Auto 29.6 % (20-40); Mean Corpuscular HGB Conc 32.1 g/dl (31.0-35.0); Mean Corpuscular Hemoglobin 30.8 pg (27.0-33.0); Mean Platelet Volume 10.2 fL (9.4-12.3); Monocytes Absolute Auto 0.6 X10*3/uL (0.1-1.2); Monocytes Percent Auto 6.7 % (2-11); Neutrophils Absolute Auto 5.7 x10*3/uL (2.0-8.3); Neutrophils Percent Auto 60.5 % (45-73); Platelet Count 281 X10*3/uL (160-400); Red Blood Count 4.54 X10*6/uL (4.20-5.50); Red Cell Distribution Width 13.1 % (11.0-16.0); White Blood Count 9.4 X10*3/uL (4.8-10.8)
[2023-10-08 04:17] LABS: Alanine Aminotransferase 16 U/L (0-31); Albumin Level 4.1 g/dL (3.5-5.0); Alkaline Phosphatase 71 U/L (39-117); Anion Gap 14 (12-20); Aspartate Amino Transferase 24 U/L (5-31); Bilirubin Total 0.4 mg/dL (0.0-1.0); Blood Urea Nitrogen 14 mg/dL (9-16); Carbon Dioxide 25 mmol/L (22-29); Chloride 105 mmol/L (96-108); Creatinine Clr Calc Pharmacy 96.8; Estimated Glomerular Filt Rate > 60; Glucose Random 98 mg/dL (60-115); Potassium 4.9 mmol/L (3.3-5.1); Sodium 139 mmol/L (135-145); Total Protein 7.3 g/dL (6.5-8.0)
[2023-10-08 04:22] LABS: Troponin-I High Sensitivity < 2.7 ng/L (<3.5-17.0)
--- NOTE | 2023-10-08 05:33 | PC.NURSE ---
pt biba from home reporting midsternal chest pain that is radiating into the left arm. pt reports the pain began around 3am before calling ems, pt reports pain is 10/10. pt denies n/v/d at this time. pt noted to have inspiratory and expiratory wheezing, pt reports she has a history of COPD. pt reports cigarette use daily. pt 89-91% room air, placed on 2L nasal cannula for comfort, sating 94Z%. pr normal sinus on tele 70-75.
--- NOTE | 2023-10-08 06:45 | PC.NURSE ---
pt sleeping at this time, respirations even and unlabored.
--- NOTE | 2023-10-08 07:45 | PC.NURSE ---
assumed care of pt at 0700. pt a&o x4, pleasant, calm, and cooperative. pt asking for medication for pain that she's having in her chest/left arm. pt on 2L O2 via nc sating 94%. pt currently resting quietly on stretcher. rr even/unlabored. call castillo within pt reach. plan of care ongoing.
--- NOTE | 2023-10-08 07:48 | ED_ITS ---
HPI - Chest Pain General Chief Complaint: Chest Pain Stated Complaint: chest pain Time Seen by Provider: 10/08/23 07:12 History of Present Illness HPI narrative: Patient is a 53-year-old female presents today with having chest pain going down to the left arm. The pain started given prior to arrival. There was positive generalized malaise. Pain going to the arm. The pain is constant. She has a history of COPD. Nothing particularly makes it worse. Patient is from home. Related Data Home Medications Medication Instructions Recorded Confirmed lithium carbonate 450 mg 450 mg PO TID 05/14/23 09/27/23 tablet,extended release cyanocobalamin (vitamin B-12) 1,000 mcg PO DAILY 06/11/23 09/27/23 1,000 mcg tablet (Vitamin B-12) ipratropium 0.5 mg-albuterol 3 mg 3 ml inhalation RQ6H PRN Shortness 06/11/23 09/27/23 (2.5 mg base)/3 mL nebulization Of Breath Or Wheezing soln Previous Rx's Medication Instructions Recorded albuterol sulfate 90 mcg/actuation 2 puff inhalation Q4H PRN 03/22/23 aerosol inhaler (Ventolin HFA) shortness of breath or wheezing #6.7 grams cholecalciferol (vitamin D3) 25 25 mcg PO DAILY #30 tabs 03/22/23 mcg (1,000 unit) tablet clonidine HCl 0.2 mg tablet 0.2 mg PO BEDTIME #30 tabs 03/22/23 ferrous sulfate 324 mg (65 mg 324 mg PO DAILY #30 tabs 03/22/23 iron) tablet,delayed release nicotine 14 mg/24 hr daily 14 mg transdermal DAILY #30 ea 03/22/23 transdermal patch olanzapine 10 mg tablet 10 mg PO BEDTIME #30 tabs 03/22/23 omeprazole 20 mg capsule,delayed 20 mg PO DAILY@0630 #30 caps 03/22/23 release ropinirole 1 mg tablet 1 mg PO BEDTIME #30 tabs 03/22/23 tiotropium bromide 18 mcg capsule 18 mcg inhalation RDAILY #20 03/22/23 with inhalation device (Spiriva inhalations with HandiHaler) gabapentin 300 mg capsule 300 mg PO TID 14 days #42 caps 07/25/23 Allergies Allergy/AdvReac Type Severity Reaction Status Date / Time aspirin Allergy Mild Anaphylaxis Verified 10/08/23 03:49 ampicillin Allergy Rash Verified 10/08/23 03:49 Penicillins Allergy Anaphylaxis Verified 10/08/23 03:49 latex AdvReac Rash Verified 10/08/23 03:49 Latex, Natural Rubber AdvReac Rash Verified 10/08/23 03:49 seafood AdvReac Stomach Verified 10/08/23 03:49 Upset Sulfa (Sulfonamide AdvReac Hives Verified 10/08/23 03:49 Antibiotics) Review of Systems 2 Review of Systems: Positive chest pain Yes all other systems are reviewed and are negative [facility] Past Medical History Attestation statement: The following information was validated with the patient. Medical History Overdose on Tylenol Suicide attempt Asthma COPD (chronic obstructive pulmonary disease) Chronic lung disease Neoplasm of parotid gland Depression 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 Drug abuse Bipolar I disorder Post traumatic stress disorder (PTSD) Tobacco use disorder FABIOLA (obstructive sleep apnea) Borderline personality disorder Intermittent explosive disorder Asthma exacerbation in COPD Herpes Tobacco use Bipolar disorder COPD (chronic obstructive pulmonary disease) Surgical History History of ankle surgery History of back surgery Hx of cholecystectomy History of appendectomy Family History Family History Mother COPD (chronic obstructive pulmonary disease) Social History Social History Household Members: None Household Members Other:: Long Term in [place] Housing: Apartment Housing Other:: Sleeps on the couch at [facility] house Do you presently have visiting nurse or other home services: Yes (2 VNA, [employer], 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 [employer]) Unable to assess alcohol history related to: Unknown Alcohol intake: never Comment: pt has sitter in room Patient Tobacco Use Status: Current everyday Tobacco user Tobacco use type: Cigarette Cigarette Packs Per Day: 1 Cigarettes Per Day: 20.0 Years Smoked: 40 Smoked in Last 30 Days: Yes e-Cigarette/Vaping Use: Never Used Second Hand Smoke Exposure: Yes Use of substances other than those prescribed or required for medical reasons: Yes Substance Use Type: Crack/Cocaine Advance Directives: Yes Advance Directives on File: Yes Advance Directives Date on File: 06/17/22 service: No Current occupational status: unemployed and disabled Sexual orientation: Straight/Heterosexual Physical Exam 2 Vital Signs: Vital Signs: Last Vital Signs Temp 98.1 F 10/08/23 07:38 Pulse 67 10/08/23 08:39 Resp 16 10/08/23 09:07 BP 108/72 10/08/23 07:38 Pulse Ox 94 10/08/23 07:38 O2 Del Method Nasal Cannula 10/08/23 07:38 O2 Flow Rate 2 10/08/23 07:38 BMI result Body Mass Index 33.9 Appearance: Alert. Oriented X3. No acute distress. Eyes: Pupils equal, round and reactive to light. ENT: Pharynx normal. Neck: Normal inspection. Neck supple. No lymph nodes noted. No crepitus CVS: Normal heart rate and rhythm. Pulses normal. Normal S1 and S2 Respiratory: Positive wheezing bilaterally Abdomen: Soft and nontender. No rigidity. No distention. good BS x4 Skin: Skin warm and dry. Normal skin color. Normal skin turgor. Extremities: No lower extremity edema. Neurovascular intact to all extremities. No Lacerations. No Rash Neuro: Oriented X 3. No motor deficit. No sensory deficit. Moving all extermities. No slurred speech Medications Administered Discontinued Medications Generic Name Dose Route Start Last Admin Trade Name Ramoneq PRN Reason Stop Dose Admin Albuterol Sulfate 2.5 mg 10/08/23 07:51 10/08/23 08:39 Albuterol Sulfate (0.083%) 2.5 Mg/3 Ml Vial.Neb INHALE 10/08/23 07:52 2.5 mg ONCE ONE Administration Hydromorphone HCl 0.5 mg 10/08/23 09:02 10/08/23 09:07 Hydromorphone Hcl 0.5 Mg/0.5 Ml Syringe IVPUSH 10/08/23 09:03 0.5 mg ONCE ONE Administration Protocol Medical Decision Making Medical Decision Making MDM Narrative: Patient is 53 years old presents today with having chest pain. The chest pain is atypical and goes to the shoulder. Two sets of cardiac enzymes all negative. Chest x-ray is negative there is no evidence for pneumonia pneumothorax. I reviewed the x-ray myself. Patient's history not consistent with PE. Will discharge patient home. Currently in stable condition. Has a history of polysubstance abuse. Explained to patient need to stop using recreational drugs. Differential Diagnosis Differential Diagnoses: The differential diagnosis associated with the presentation includes ACS, PE, pneumonia, pneumothorax Admission/Observation Consideration of admission/observation: Escalation of care including admission/observation considered 2 sets of enzymes negative patient's chest pain atypical her heart score is less than 3 felt patient does not require admission Lab Data MDM Lab Attestation statement: I reviewed the patient's lab results. 10/08/23 03:57 10/08/23 03:57 Labs: Lab Results 10/08/23 10/08/23 Range/Units 03:57 08:40 WBC 9.4 (4.8-10.8) X10*3/uL RBC 4.54 (4.20-5.50) X10*6/uL Hgb 14.0 (12.0-16.0) g/dl Hct 43.6 (37.0-47.0) % MCV 96.0 (80.0-98.0) fL MCH 30.8 (27.0-33.0) pg MCHC 32.1 (31.0-35.0) g/dl RDW 13.1 (11.0-16.0) % Plt Count 281 (160-400) X10*3/uL MPV 10.2 (9.4-12.3) fL Immature Gran % (Auto) 0.2 (0.0-0.4) % Neut % (Auto) 60.5 (45-73) % Lymph % (Auto) 29.6 (20-40) % [place] % (Auto) 6.7 (2-11) % Eos % (Auto) 1.9 (0-4) % Baso % (Auto) 1.1 (0-2) % Lymph # (Auto) 2.8 (1.2-4.9) X10*3/uL [place] # (Auto) 0.6 (0.1-1.2) X10*3/uL Eos # (Auto) 0.2 (0.0-0.4) X10*3/uL Baso # (Auto) 0.1 (0.0-0.2) X10*3/uL Abs Immat Gran (auto) 0.02 (0.00-0.03) X10*3/uL Absolute Neuts (auto) 5.7 (2.0-8.3) x10*3/uL Absolute Nucleated RBC 0.000 (0.0-0.012) X10*3/uL Nucleated RBC % (auto) 0.0 (0.0-0.2) /100WBC Sodium 139 (135-145) mmol/L Potassium 4.9 (3.3-5.1) mmol/L Chloride 105 (96-108) mmol/L Carbon Dioxide 25 (22-29) mmol/L Anion Gap 14 (12-20) BUN 14 (9-16) mg/dL Creatinine 0.79 (0.5-1.4) mg/dL Estim Creat Clear Calc 96.8 Estimated GFR > 60 Random Glucose 98 (60-115) mg/dL Calcium 10.0 (8.4-10.2) mg/dL Total Bilirubin 0.4 (0.0-1.0) mg/dL AST 24 (5-31) U/L ALT 16 (0-31) U/L Alkaline Phosphatase 71 (39-117) U/L Troponin I High Sens < 2.7 < 2.7 (<3.5-17.0) ng/L Total Protein 7.3 (6.5-8.0) g/dL Albumin 4.1 (3.5-5.0) g/dL Influenza Type A (PCR) NEGATIVE (Negative) Influenza Type B (PCR) NEGATIVE (Negative) RSV RNA Qual (PCR) NEGATIVE (Negative) SARS-CoV-2 RNA (RT-PCR) NEGATIVE (Negative) Independent Interpretation I performed an independent interpretation of an: EKG (Sinus heart rate is 70 DE QRS QTC within normal limits is no acute ST segment elevation noted.) and Plain X-Ray (Chest x-ray negative for pneumonia pneumothorax) Radiology Impression Discussion of test interpretation with radiology: I have reviewed the radiologist's reading. External Record Review External record reviewed: Inpatient record Previous hospitalist note reviewed. Chronic Conditions Polysubstance abuse, hypertension Discharge Plan Discharge Clinical Impression: Chest pain Patient Disposition: Home, Self-Care Instructions: Chest Pain (ED) Prescriptions: No Action ropinirole 1 mg Tablet 1 mg PO BEDTIME Qty: 30 0RF nicotine 14 mg/24 hr Patch 24 Hour 14 mg transdermal DAILY Qty: 30 0RF olanzapine 10 mg Tablet 10 mg PO BEDTIME Qty: 30 0RF clonidine HCl 0.2 mg Tablet 0.2 mg PO BEDTIME Qty: 30 0RF Protocol: Hold for SBP< HOLD for SBP < : 90 albuterol sulfate [Ventolin HFA] 90 mcg/actuation Hfa Aerosol Inhaler 2 puff inhalation Q4H PRN (Reason: shortness of breath or wheezing) Qty: 6.7 0RF tiotropium bromide [Spiriva with HandiHaler] 18 mcg Capsule, W/Inhalation Device 18 mcg inhalation RDAILY Qty: 20 0RF ferrous sulfate 324 mg (65 mg iron) Tablet,Delayed Release (Dr/Ec) 324 mg PO DAILY Qty: 30 0RF omeprazole 20 mg Capsule,Delayed Release(Dr/Ec) 20 mg PO DAILY@0630 Qty: 30 0RF cholecalciferol (vitamin D3) 25 mcg (1,000 unit) Tablet 25 mcg PO DAILY Qty: 30 0RF gabapentin 300 mg Capsule 300 mg PO TID 14 Days Qty: 42 1RF lithium carbonate 450 mg tablet extended release 450 mg PO TID cyanocobalamin (vitamin B-12) [Vitamin B-12] 1,000 mcg tablet 1,000 mcg PO DAILY ipratropium-albuterol 0.5 mg-3 mg(2.5 mg base)/3 mL solution for nebulization 3 ml inhalation RQ6H PRN (Reason: Shortness Of Breath Or Wheezing) Referrals: Deangelo Gutierres MD [Physician] - 10/11/23 Physician,Moon Rojas [Primary Care Provider] - 10/10/23
[2023-10-08] MEDS: Albuterol Sulfate (0.083%) 2.5 MG/3 ML VIAL.NEB INHALE (08:39)
[2023-10-08] MEDS: HYDROmorphone HCl 0.5 MG/0.5 ML SYRINGE IVPUSH (09:07)
[2023-10-08 09:10] LABS: Troponin-I High Sensitivity < 2.7 ng/L (<3.5-17.0)
[2023-10-08 09:31] LABS: Influenza A PCR NEGATIVE (Negative); Influenza B PCR NEGATIVE (Negative); Resp Syncy Virus RNA Qual PCR NEGATIVE (Negative); SARS COV2 PCR INHOUSE NEGATIVE (Negative)
--- NOTE | 2023-10-08 09:32 | PC.NURSE ---
pt medicated per mar for left arm pain. pt had immediate relief, stating the medication is a miracle drug . pt provided with coffee per MD approval. plan of care ongoing. awaiting lab results.
--- NOTE | 2023-10-08 10:27 | PC.NURSE ---
pt discharged and asking for ride home. [facility] CARE team always provides a ride home when she's here. CARE team going to order pt ride home. pt in waiting room waiting for ride.
== END 2023-10-08 10:30 | disposition home or self-care (01) ==
PROVIDERS: Emergency Provider Emergency Medicine Emergency Medical Services
DX: R07.9 Chest pain, unspecified (principal); R53.81 Other malaise; J44.9 Chronic obstructive pulmonary disease, unspecified; Z79.899 Other long term (current) drug therapy
CPT/HCPCS: 0241U; 36415; 71045; 80053; 84484; 85025; 93005; 94640; 96374; 99285; J1170

== ENCOUNTER → 2023-10-08 03:49 | Outpatient (BNV) | payer MEDICAID, SELFPAY | PROVIDERS: Emergency Provider Emergency Medicine Emergency Medical Services; Visit Provider Internal Medicine | DX: R94.31 Abnormal electrocardiogram [ECG] [EKG] (principal); R07.9 Chest pain, unspecified | CPT/HCPCS: 93010 ==

== ENCOUNTER 2023-10-15 19:41 | Emergency (ER) | payer MEDICAID, OTHER, SELFPAY ==
--- NOTE | ~2023-10-15 | XR_ITS ---
EXAMINATION: XR CHEST CLINICAL INFORMATION: Shortness of breath. COMPARISON: Chest radiograph done on 10/08/2023. TECHNIQUE: Frontal view of the chest was obtained. FINDINGS: Subtle groundglass asymmetric increased opacity is noted at right lower lobe of the lung, new since prior study, in the appropriate clinical setting would be most consistent with pneumonia. The remainder of the lung carey bilaterally appear clear. The cardiac mediastinal silhouette is within normal limit. No evidence of any pleural effusion seen. XR/XR chest 1V IMPRESSION: Asymmetric subtle groundglass airspace disease, new since 10/08/2023, in the appropriate clinical setting would be most consistent with pneumonia. Follow-up imaging to document resolution is recommended.
--- NOTE | 2023-10-15 19:47 | ED_ITS ---
HPI - Psych General Chief Complaint: Psychiatric Symptoms Stated Complaint: SI W/PLAN Time Seen by Provider: 10/15/23 19:46 Source: patient, EMS, RN notes reviewed and old records reviewed Mode of arrival: EMS History of Present Illness HPI Narrative: 53-year-old female with a past medical history of asthma, COPD, depression, bipolar, PTSD, FABIOLA borderline personality disorder, presenting to the ED via EMS complaining of suicidal ideations with plan to overdose and cut wrists. Admits to smoking crack, denies other illicit substances or EtOH. Also reports cough and increasing SOB over the past few days, has been using medications at home without relief. Denies fevers/chills, chest pain, abdominal pain, nausea/vomiting. denies HI MD complaint: suicidal ideation Related Data Home Medications Medication Instructions Recorded Confirmed lithium carbonate 450 mg 450 mg PO TID 05/14/23 10/15/23 tablet,extended release cyanocobalamin (vitamin B-12) 1,000 mcg PO DAILY 06/11/23 10/15/23 1,000 mcg tablet (Vitamin B-12) ipratropium 0.5 mg-albuterol 3 mg 3 ml inhalation RQ6H PRN Shortness 06/11/23 10/15/23 (2.5 mg base)/3 mL nebulization Of Breath Or Wheezing soln gabapentin 300 mg capsule 400 mg PO TID 10/15/23 10/15/23 Previous Rx's Medication Instructions Recorded albuterol sulfate 90 mcg/actuation 2 puff inhalation Q4H PRN 03/22/23 aerosol inhaler (Ventolin HFA) shortness of breath or wheezing #6.7 grams cholecalciferol (vitamin D3) 25 25 mcg PO DAILY #30 tabs 03/22/23 mcg (1,000 unit) tablet clonidine HCl 0.2 mg tablet 0.2 mg PO BEDTIME #30 tabs 03/22/23 ferrous sulfate 324 mg (65 mg 324 mg PO DAILY #30 tabs 03/22/23 iron) tablet,delayed release nicotine 14 mg/24 hr daily 14 mg transdermal DAILY #30 ea 03/22/23 transdermal patch olanzapine 10 mg tablet 10 mg PO BEDTIME #30 tabs 03/22/23 omeprazole 20 mg capsule,delayed 20 mg PO DAILY@0630 #30 caps 03/22/23 release ropinirole 1 mg tablet 1 mg PO BEDTIME #30 tabs 03/22/23 tiotropium bromide 18 mcg capsule 18 mcg inhalation RDAILY #20 03/22/23 with inhalation device (Spiriva inhalations with HandiHaler) Allergies Allergy/AdvReac Type Severity Reaction Status Date / Time aspirin Allergy Mild Anaphylaxis Verified 10/08/23 03:49 ampicillin Allergy Rash Verified 10/08/23 03:49 Penicillins Allergy Anaphylaxis Verified 10/08/23 03:49 latex AdvReac Rash Verified 10/08/23 03:49 Latex, Natural Rubber AdvReac Rash Verified 10/08/23 03:49 seafood AdvReac Stomach Verified 10/08/23 03:49 Upset Sulfa (Sulfonamide AdvReac Hives Verified 10/08/23 03:49 Antibiotics) Review of Systems 2 Review of Systems: Constitutional: No Fever, No Chills, No Fatigue, No Malaise ENT/Mouth: No Ear Pain, No Nasal Congestion, No sore throat, No Rhinorrhea, No Swallowing Difficulty Eyes: No Eye Pain, No Swelling, No Redness, No Vision Changes Cardiovascular: No Chest Pain, + SOB, No Edema, No Palpitations Respiratory: + Cough, No Sputum, + Wheezing,No Dyspnea Gastrointestinal: No Nausea, No Vomiting, No Diarrhea, No Constipation, No Abdominal pain Genitourinary: No irregular bleeding, No Dysuria, No Urinary Frequency, No Hematuria Musculoskeletal: No joint pain, No Myalgias, No Joint Swelling Skin: No Skin Lesions, No rash Neuro: No Weakness, No Headache Psych: No Anxiety/Panic, + Depression, + SI, No HI/AH/VH, No Social Issues Yes all other systems are reviewed and are negative Constitutional: Constitutional: Reports as per [facility] Past Medical History Attestation statement: The following information was validated with the patient. Source: old records reviewed Medical History Overdose on Tylenol Suicide attempt Asthma COPD (chronic obstructive pulmonary disease) Chronic lung disease Neoplasm of parotid gland Depression 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 Drug abuse Bipolar I disorder Post traumatic stress disorder (PTSD) Tobacco use disorder FABIOLA (obstructive sleep apnea) Borderline personality disorder Intermittent explosive disorder Asthma exacerbation in COPD Herpes Tobacco use Bipolar disorder COPD (chronic obstructive pulmonary disease) Surgical History History of ankle surgery History of back surgery Hx of cholecystectomy History of appendectomy Family History Family History Mother COPD (chronic obstructive pulmonary disease) Social History Social History Household Members: None Household Members Other:: Detention in [employer] Housing: Apartment Housing Other:: Sleeps on the couch at [facility] house Do you presently have visiting nurse or other home services: Yes (2 VNA, [employer], 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 [employer]) Unable to assess alcohol history related to: Unknown Alcohol intake: never Comment: pt has sitter in room Patient Tobacco Use Status: Current everyday Tobacco user Tobacco use type: Cigarette Cigarette Packs Per Day: 1 Cigarettes Per Day: 20.0 Years Smoked: 40 e-Cigarette/Vaping Use: Never Used Second Hand Smoke Exposure: Yes Substance Use Type: Crack/Cocaine Advance Directives: Yes Advance Directives on File: Yes Advance Directives Date on File: 06/17/22 service: No Current occupational status: unemployed and disabled Sexual orientation: Straight/Heterosexual Physical Exam 2 Vital Signs: Vital Signs: Last Vital Signs Temp 97.5 F 10/16/23 00:46 Pulse 78 10/16/23 00:46 Resp 19 10/16/23 00:46 BP 115/66 10/16/23 00:46 Pulse Ox 92 10/16/23 00:46 O2 Del Method Room Air 10/16/23 00:46 BMI result Body Mass Index 33.3 Const: General: cooperative, healthy appearing and no acute distress O rientation/consciousness: patient oriented x3 Limitations: no limitations HEENT: Head: Yes normal to inspection and Yes atraumatic Ears: hearing grossly normal bilaterally General nose exam: Normal external nose present Face and sinus: Yes normal facial exam Eyes: General: appearance normal, both eyes and all related structures EOM: EOMs intact bilaterally Neck: Neck: Yes normal visual inspection and Yes no meningeal signs Resp: Effort & Inspection: normal respiratory effort and no respiratory distress Auscultation: wheezes expiratory wheezes and throughout Cardio: Rate: regular rate Heart sounds: S1 normal heart sound present and S2 normal heart sound present Skin: Rashes: no rashes Wounds: no wounds Neuro: General: patient oriented x3, tone normal and no meningeal signs C ranial nerves: Yes CN's II-XII intact bilaterally Gait exam (Neuro): Normal gait present Extrem: General: Yes normal to inspection Psych: Thought content: Suicidality present and no homicidality Course Course Course Narrative: -no leukocytosis. Labs otherwise reassuring. Tox screen positive for cocaine -COVID/FLU/RSV negative XR chest 1V IMPRESSION: Asymmetric subtle groundglass airspace disease, new since 10/08/2023, in the appropriate clinical setting would be most consistent with pneumonia. Follow-up imaging to document resolution is recommended. > p.o. Levaquin ordered x5 days in addition to prednisone 40 mg x total 5 days -Physician observation initiated at 22:44 as patient needs to be evaluated by CARE team -0200-- ED care transferred to Dr. Hollis pending CARE team consult Medications Administered Generic Name Dose Route Start Last Admin Trade Name Freq PRN Reason Stop Dose Admin Albuterol Sulfate 2 puff 10/15/23 22:42 10/15/23 22:58 Albuterol Sulfate 90 Mcg 8 Gm Inhaler INHALE 2 puff Q4H PRN Administration shortness of breath or wheezing Clonidine HCl 0.2 mg 10/15/23 22:45 10/15/23 23:11 Clonidine Hcl 0.2 Mg Tablet PO 0.2 mg BEDTIME TEJA Administration Protocol Levofloxacin 750 mg 10/15/23 23:00 10/15/23 23:11 Levofloxacin 750 Mg Tablet PO 10/20/23 22:59 750 mg Q24H TEJA Administration Olanzapine 10 mg 10/15/23 22:45 10/15/23 23:11 Olanzapine 10 Mg Tablet PO 10 mg BEDTIME TEJA Administration Ropinirole HCl 1 mg 10/15/23 22:45 10/15/23 23:11 Ropinirole Hcl 1 Mg Tablet PO 1 mg BEDTIME TEJA Administration Discontinued Medications Generic Name Dose Route Start Last Admin Trade Name Freq PRN Reason Stop Dose Admin Acetaminophen 650 mg 10/15/23 20:20 10/15/23 21:20 Acetaminophen 325 Mg Tablet PO 10/15/23 20:21 650 mg ONCE ONE Administration Albuterol Sulfate 8 puff 10/15/23 20:50 10/15/23 20:56 Albuterol Sulfate 90 Mcg 8 Gm Inhaler INHALE 10/15/23 20:51 8 puff ONCE ONE Administration Prednisone 40 mg 10/15/23 20:15 10/15/23 21:20 Prednisone 20 Mg Tablet PO 10/15/23 20:16 40 mg ONCE ONE Administration Medical Decision Making Medical Decision Making MDM Narrative: 53-year-old female with a past medical history of asthma, COPD, depression, bipolar, PTSD, FABIOLA borderline personality disorder, presenting to the ED via EMS complaining of suicidal ideations with plan to overdose and cut wrists. Admits to smoking crack, cough and increasing SOB over the past few days. On exam vital signs stable, satting 92% on RA with diffuse expiratory wheeze noted. + SI with plan. Concern for suicide ideations with plan vs viral syndrome vs asthma/COPD. Will pneumonia. Lower suspicion for ACS/PE or CHF. Unlikely severe sepsis Plan: Labs, viral testing, CXR, ED bronch protocol, CARE team consult. P.o. prednisone Please refer to course for remaining clinical decision making, interpretation of labs/imaging results, and discussions with consultants and/or family members. Differential Diagnosis Differential Diagnoses: The differential diagnosis associated with the presentation includes As above Admission/Observation Consideration of admission/observation: Escalation of care including admission/observation considered Consult Healthcare Provider Management of the patient was discussed with: Behavioral Health Provider Lab Data [facility] Lab Attestation statement: I reviewed the patient's lab results. 10/15/23 20:28 10/15/23 20:29 Labs: Lab Results 10/15/23 10/15/23 10/15/23 Range/Units 20:28 20:29 20:31 WBC 9.8 (4.8-10.8) X10*3/uL RBC 4.56 (4.20-5.50) X10*6/uL Hgb 14.1 (12.0-16.0) g/dl Hct 44.0 (37.0-47.0) % MCV 96.5 (80.0-98.0) fL MCH 30.9 (27.0-33.0) pg MCHC 32.0 (31.0-35.0) g/dl RDW 12.9 (11.0-16.0) % Plt Count 283 (160-400) X10*3/uL MPV 9.8 (9.4-12.3) fL Immature Gran % (Auto) 0.3 (0.0-0.4) % Neut % (Auto) 70.2 (45-73) % Lymph % (Auto) 22.3 (20-40) % [place] % (Auto) 5.2 (2-11) % Eos % (Auto) 1.2 (0-4) % Baso % (Auto) 0.8 (0-2) % Lymph # (Auto) 2.2 (1.2-4.9) X10*3/uL [place] # (Auto) 0.5 (0.1-1.2) X10*3/uL Eos # (Auto) 0.1 (0.0-0.4) X10*3/uL Baso # (Auto) 0.1 (0.0-0.2) X10*3/uL Abs Immat Gran (auto) 0.03 (0.00-0.03) X10*3/uL Absolute Neuts (auto) 6.9 (2.0-8.3) x10*3/uL Absolute Nucleated RBC 0.000 (0.0-0.012) X10*3/uL Nucleated RBC % (auto) 0.0 (0.0-0.2) /100WBC Sodium 143 (135-145) mmol/L Potassium 4.0 (3.3-5.1) mmol/L Chloride 104 (96-108) mmol/L Carbon Dioxide 29 (22-29) mmol/L Anion Gap 14 (12-20) BUN 9 (9-16) mg/dL Creatinine 0.79 (0.5-1.4) mg/dL Estim Creat Clear Calc 92.7 Estimated GFR > 60 Random Glucose 101 (60-115) mg/dL Calcium 10.1 (8.4-10.2) mg/dL Total Bilirubin 0.3 (0.0-1.0) mg/dL AST 13 (5-31) U/L ALT 11 (0-31) U/L Alkaline Phosphatase 79 (39-117) U/L Total Protein 7.2 (6.5-8.0) g/dL Albumin 4.4 (3.5-5.0) g/dL Urine Opiates Screen Not Detected (Not Detect) Urine Fentanyl Screen Not Detected (Not Detect) Ur Barbiturates Screen Not Detected (Not Detect) Ur Phencyclidine Scrn Not Detected (Not Detect) Ur Amphetamines Screen Not Detected (Not Detect) U Benzodiazepines Scrn Not Detected (Not Detect) Urine Cocaine Screen POSITIVE H (Not Detect) U Marijuana (THC) Screen Not Detected (Not Detect) Ethyl Alcohol < 10 mg/dL Influenza Type A (PCR) (Negative) Influenza Type B (PCR) (Negative) RSV RNA Qual (PCR) (Negative) SARS-CoV-2 RNA (RT-PCR) (Negative) 10/15/23 Range/Units 20:35 WBC (4.8-10.8) X10*3/uL RBC (4.20-5.50) X10*6/uL Hgb (12.0-16.0) g/dl Hct (37.0-47.0) % MCV (80.0-98.0) fL MCH (27.0-33.0) pg MCHC (31.0-35.0) g/dl RDW (11.0-16.0) % Plt Count (160-400) X10*3/uL MPV (9.4-12.3) fL Immature Gran % (Auto) (0.0-0.4) % Neut % (Auto) (45-73) % Lymph % (Auto) (20-40) % [place] % (Auto) (2-11) % Eos % (Auto) (0-4) % Baso % (Auto) (0-2) % Lymph # (Auto) (1.2-4.9) X10*3/uL [place] # (Auto) (0.1-1.2) X10*3/uL Eos # (Auto) (0.0-0.4) X10*3/uL Baso # (Auto) (0.0-0.2) X10*3/uL Abs Immat Gran (auto) (0.00-0.03) X10*3/uL Absolute Neuts (auto) (2.0-8.3) x10*3/uL Absolute Nucleated RBC (0.0-0.012) X10*3/uL Nucleated RBC % (auto) (0.0-0.2) /100WBC Sodium (135-145) mmol/L Potassium (3.3-5.1) mmol/L Chloride (96-108) mmol/L Carbon Dioxide (22-29) mmol/L Anion Gap (12-20) BUN (9-16) mg/dL Creatinine (0.5-1.4) mg/dL Estim Creat Clear Calc Estimated GFR Random Glucose (60-115) mg/dL Calcium (8.4-10.2) mg/dL Total Bilirubin (0.0-1.0) mg/dL AST (5-31) U/L ALT (0-31) U/L Alkaline Phosphatase (39-117) U/L Total Protein (6.5-8.0) g/dL Albumin (3.5-5.0) g/dL Urine Opiates Screen (Not Detect) Urine Fentanyl Screen (Not Detect) Ur Barbiturates Screen (Not Detect) Ur Phencyclidine Scrn (Not Detect) Ur Amphetamines Screen (Not Detect) U Benzodiazepines Scrn (Not Detect) Urine Cocaine Screen (Not Detect) U Marijuana (THC) Screen (Not Detect) Ethyl Alcohol mg/dL Influenza Type A (PCR) NEGATIVE (Negative) Influenza Type B (PCR) NEGATIVE (Negative) RSV RNA Qual (PCR) NEGATIVE (Negative) SARS-CoV-2 RNA (RT-PCR) NEGATIVE (Negative) Independent Interpretation I performed an independent interpretation of an: Plain X-Ray Independent Historian Clinical information obtained from an independent historian. History obtained from or confirmed by: EMS External Record Review External record reviewed: Inpatient record, Office record, Outpatient record, Prior outpatient labs, Prior outpatient radiology, Primary care record and Outside ED record Tests considered The following testing was considered but not selected: As above Discharge Plan Discharge Clinical Impression: Pneumonia, Suicidal ideations Patient Disposition: Still a Patient Prescriptions: No Action ropinirole 1 mg Tablet 1 mg PO BEDTIME Qty: 30 0RF nicotine 14 mg/24 hr Patch 24 Hour 14 mg transdermal DAILY Qty: 30 0RF olanzapine 10 mg Tablet 10 mg PO BEDTIME Qty: 30 0RF clonidine HCl 0.2 mg Tablet 0.2 mg PO BEDTIME Qty: 30 0RF Protocol: Hold for SBP< HOLD for SBP < : 90 albuterol sulfate [Ventolin HFA] 90 mcg/actuation Hfa Aerosol Inhaler 2 puff inhalation Q4H PRN (Reason: shortness of breath or wheezing) Qty: 6.7 0RF tiotropium bromide [Spiriva with HandiHaler] 18 mcg Capsule, W/Inhalation Device 18 mcg inhalation RDAILY Qty: 20 0RF ferrous sulfate 324 mg (65 mg iron) Tablet,Delayed Release (Dr/Ec) 324 mg PO DAILY Qty: 30 0RF omeprazole 20 mg Capsule,Delayed Release(Dr/Ec) 20 mg PO DAILY@0630 Qty: 30 0RF cholecalciferol (vitamin D3) 25 mcg (1,000 unit) Tablet 25 mcg PO DAILY Qty: 30 0RF gabapentin 300 mg capsule 400 mg PO TID lithium carbonate 450 mg tablet extended release 450 mg PO TID cyanocobalamin (vitamin B-12) [Vitamin B-12] 1,000 mcg tablet 1,000 mcg PO DAILY ipratropium-albuterol 0.5 mg-3 mg(2.5 mg base)/3 mL solution for nebulization 3 ml inhalation RQ6H PRN (Reason: Shortness Of Breath Or Wheezing)
[2023-10-15 20:04] VITALS: BP 130/87; BP 130/90; PULSE 83; PULSE 85; RESP 16; TEMP 37.2; O2SAT 92; O2SAT 94; BMI 33.3
[2023-10-15 20:43] LABS: MANUAL DIFF FLAG NO
[2023-10-15 20:46] LABS: Basophils Absolute Auto 0.1 X10*3/uL (0.0-0.2); Basophils Percent Auto 0.8 % (0-2); Eosinophils Absolute Auto 0.1 X10*3/uL (0.0-0.4); Eosinophils Percent Auto 1.2 % (0-4); Hemoglobin 14.1 g/dl (12.0-16.0); Imm Gran Abs Auto 0.03 X10*3/uL (0.00-0.03); Imm Gran Pct Auto 0.3 % (0.0-0.4); Lymphocytes Absolute Auto 2.2 X10*3/uL (1.2-4.9); Lymphocytes Percent Auto 22.3 % (20-40); Mean Corpuscular Hemoglobin 30.9 pg (27.0-33.0); Mean Corpuscular Volume 96.5 fL (80.0-98.0); Mean Platelet Volume 9.8 fL (9.4-12.3); Monocytes Absolute Auto 0.5 X10*3/uL (0.1-1.2); Monocytes Percent Auto 5.2 % (2-11); Neutrophils Absolute Auto 6.9 x10*3/uL (2.0-8.3); Neutrophils Percent Auto 70.2 % (45-73); Platelet Count 283 X10*3/uL (160-400); Red Blood Count 4.56 X10*6/uL (4.20-5.50); Red Cell Distribution Width 12.9 % (11.0-16.0); White Blood Count 9.8 X10*3/uL (4.8-10.8)
[2023-10-15 20:54] LABS: Amphetamine Screen Urine Not Detected (Not Detect); Barbiturates, Urine Not Detected (Not Detect); Benzodiazepines Screen Urine Not Detected (Not Detect); Cannabinoid Screen Urine Not Detected (Not Detect); Cocaine Screen Urine POSITIVE (Not Detect); Fentanyl, urine Not Detected (Not Detect); Opiate Screen Urine Not Detected (Not Detect); Phencyclidine Screen Urine Not Detected (Not Detect)
[2023-10-15 20:55] VITALS: PULSE 75; RESP 20; O2SAT 95
[2023-10-15] MEDS: Albuterol Sulfate 90 MCG 8 GM INHALER 8 PUFF INHALE (20:56)
[2023-10-15 21:00] LABS: Alanine Aminotransferase 11 U/L (0-31); Albumin Level 4.4 g/dL (3.5-5.0); Alkaline Phosphatase 79 U/L (39-117); Anion Gap 14 (12-20); Aspartate Amino Transferase 13 U/L (5-31); Bilirubin Total 0.3 mg/dL (0.0-1.0); Blood Urea Nitrogen 9 mg/dL (9-16); Calcium 10.1 mg/dL (8.4-10.2); Carbon Dioxide 29 mmol/L (22-29); Chloride 104 mmol/L (96-108); Creatinine Clr Calc Pharmacy 92.7; Estimated Glomerular Filt Rate > 60; Glucose Random 101 mg/dL (60-115); Sodium 143 mmol/L (135-145); Total Protein 7.2 g/dL (6.5-8.0)
[2023-10-15 21:05] LABS: Ethanol < 10 mg/dL
[2023-10-15] MEDS: Acetaminophen 325 MG TABLET 650 MG PO (21:20)
[2023-10-15] MEDS: predniSONE 20 MG TABLET 40 MG PO (21:20)
[2023-10-15 21:22] LABS: Influenza A PCR NEGATIVE (Negative); Influenza B PCR NEGATIVE (Negative); Resp Syncy Virus RNA Qual PCR NEGATIVE (Negative); SARS COV2 PCR INHOUSE NEGATIVE (Negative)
[2023-10-15 22:58] VITALS: PULSE 76; RESP 20; O2SAT 93
[2023-10-15] MEDS: Albuterol Sulfate 90 MCG 8 GM INHALER 2 PUFF INHALE (22:58)
[2023-10-15] MEDS: rOPINIRole HCL 1 MG TABLET PO (23:11)
[2023-10-15] MEDS: cloNIDine HCL 0.2 MG TABLET PO (23:11)
[2023-10-15] MEDS: OLANZapine 10 MG TABLET PO (23:11)
[2023-10-15] MEDS: levoFLOXacin 750 MG TABLET PO (23:11)
[2023-10-16 00:46] VITALS: BP 115/66; PULSE 78; RESP 19; TEMP 36.4; O2SAT 92
[2023-10-16] MEDS: Omeprazole 20 MG CAPSULE.DR PO (08:22)
[2023-10-16] MEDS: Cyanocobalamin (Vitamin B-12) 1,000 MCG TABLET 1000 MCG PO (08:22)
[2023-10-16] MEDS: Ferrous Sulfate 324 MG TABLET.DR PO (08:22)
[2023-10-16] MEDS: Cholecalciferol (Vitamin D3) 25 MCG TABLET PO (08:22)
[2023-10-16] MEDS: Gabapentin 400 MG CAPSULE PO (08:22)
[2023-10-16] MEDS: predniSONE 20 MG TABLET 40 MG PO (08:22)
[2023-10-16] MEDS: Lithium Carbonate ER 450 MG TABLET.ER PO (08:22)
[2023-10-16] MEDS: Nicotine 14 MG PATCH.TD24 TRANSDERMA (08:23)
== END 2023-10-16 10:08 | disposition home or self-care (01) ==
PROVIDERS: Physician Assistant; Emergency Provider Emergency Medicine; PCP Internal Medicine
DX: R45.851 Suicidal ideations (principal); F14.10 Cocaine abuse, uncomplicated; F31.9 Bipolar disorder, unspecified; F60.3 Borderline personality disorder; F43.10 Post-traumatic stress disorder, unspecified; Z91.51 Personal history of suicidal behavior; J18.9 Pneumonia, unspecified organism; R06.02 Shortness of breath; Z20.822 Contact with and (suspected) exposure to COVID-19; Z20.828 Contact with and (suspected) exposure to other viral communicable diseases; J44.9 Chronic obstructive pulmonary disease, unspecified; D49.0 Neoplasm of unspecified behavior of digestive system; F17.210 Nicotine dependence, cigarettes, uncomplicated; Z79.899 Other long term (current) drug therapy
CPT/HCPCS: 0241U; 36415; 71045; 80053; 80307; 85025; 94640; 99285; S9485

== ENCOUNTER 2023-10-24 06:19 | Inpatient (IN) | payer MEDICAID, SELFPAY ==
[2023-10-24] VITALS (9 sets, daily range): BP systolic 114–150; BP diastolic 75–90; PULSE 80–90; RESP 16–93; TEMP 36.6–37.3; O2SAT 88–95; BMI 58.8; BMI 46.0
--- NOTE | ~2023-10-24 | XR_ITS ---
EXAMINATION: XR chest 1V CLINICAL INFORMATION: Dyspnea COMPARISON: 10/15/2023 TECHNIQUE: Single portable frontal view. Tubes and lines: None Lungs and pleura: Mild interstitial prominence of the bronchovascular spaces unchanged from prior exam, possibly mild interstitial and/or small airway disease. No dense lobar consolidation lobar pneumonia. Heart and mediastinum: The mediastinum is within normal limits.. Bones/soft tissue: Skeletal structures included are normal for patient's age. XR/XR chest 1V IMPRESSION: * Mild interstitial prominence of the bronchovascular spaces unchanged from prior exam, possibly mild interstitial and/or small airway disease. * No dense lobar consolidation pneumonia.
--- NOTE | 2023-10-24 06:25 | ECG_ITS ---
Test Reason : SHORTNESS OF BREATH Blood Pressure : / mmHG Vent. Rate : 089 BPM Atrial Rate : 089 BPM P-R Int : 146 ms QRS Dur : 084 ms QT Int : 362 ms P-R-T Axes : 012 025 020 degrees QTc Int : 440 ms Normal sinus rhythm Nonspecific T wave abnormality Abnormal ECG When compared with ECG of 08-OCT-2023 03:49, No significant change was found Referred By: Generic ED Physician Electronically Signed By:VAIBHAV KILLIAN MD
[2023-10-24] MEDS: Albuterol Sulfate 7.5 MG, Albuterol/Iprat 2.5/0.5MG 3 ML 3 ML INHALE (06:33)
--- NOTE | 2023-10-24 06:33 | PC.NURSE ---
pt biba from home reporting increasing shortness of breath for one day. pt reports being seen here about a month ago for the same symptoms. pt wheezing bilaterally. pt placed on 4L nasal cannula at this time, sating 93%. pt has increasing work of breathing at this time. respiratory at bedside.
--- NOTE | 2023-10-24 06:52 | ED.SOB ---
HPI - SOB/Dyspnea General Chief Complaint: Dyspnea Stated Complaint: Diff breathing Time Seen by Provider: 10/24/23 06:49 Source: patient and RN notes reviewed Mode of arrival: ambulatory Limitations: no limitations History of Present Illness HPI Narrative: This is a 53-year-old female, with a history of asthma, COPD, depression, bipolar disorder, PTSD, FABIOLA borderline personality disorder, presenting to the emergency department with complaints of shortness of breath for the last day. Patient states that she woke up yesterday morning and was feeling very short of breath. She also endorses a productive cough with yellow/ white sputum. She also endorses congestion. She has been exposed to a sick contact about 1 week ago. she denies any chest pain, palpitations, abdominal pain, nausea, vomiting or diarrhea. She was seen by her primary care physician several days ago was started on a course of prednisone, she did not take her prescription today. no other complaints or concerns at this time. MD elicited complaint: shortness of breath and cough Pertinent past history: COPD and asthma Onset (ago): day(s) Context: recent illness Exacerbating factors: nothing Relieving factors: oxygen Known history of: COPD and asthma Associated symptoms: cough, wheezing, sputum production and chest congestion Treatment prior to arrival: oxygen Related Data Home oxygen amount: none Home Medications Medication Instructions Recorded Confirmed lithium carbonate 450 mg 450 mg PO TID 05/14/23 10/24/23 tablet,extended release cyanocobalamin (vitamin B-12) 1,000 mcg PO DAILY 06/11/23 10/24/23 1,000 mcg tablet (Vitamin B-12) ipratropium 0.5 mg-albuterol 3 mg 3 ml inhalation RQ6H PRN Shortness 06/11/23 10/24/23 (2.5 mg base)/3 mL nebulization Of Breath Or Wheezing soln gabapentin 400 mg capsule 400 mg PO TID 10/24/23 10/24/23 Previous Rx's Medication Instructions Recorded albuterol sulfate 90 mcg/actuation 2 puff inhalation Q4H PRN 03/22/23 aerosol inhaler (Ventolin HFA) shortness of breath or wheezing #6.7 grams clonidine HCl 0.2 mg tablet 0.2 mg PO BEDTIME #30 tabs 03/22/23 ferrous sulfate 324 mg (65 mg 324 mg PO DAILY #30 tabs 03/22/23 iron) tablet,delayed release olanzapine 10 mg tablet 10 mg PO BEDTIME #30 tabs 03/22/23 omeprazole 20 mg capsule,delayed 20 mg PO DAILY@0630 #30 caps 03/22/23 release ropinirole 1 mg tablet 1 mg PO BEDTIME #30 tabs 03/22/23 tiotropium bromide 18 mcg capsule 18 mcg inhalation RDAILY #20 03/22/23 with inhalation device (Spiriva inhalations with HandiHaler) prednisone 10 mg tablet See Taper PO DAILY #15 tabs 10/25/23 Allergies Allergy/AdvReac Type Severity Reaction Status Date / Time aspirin Allergy Mild Anaphylaxis Verified 10/24/23 06:27 ampicillin Allergy Rash Verified 10/24/23 06:27 Penicillins Allergy Anaphylaxis Verified 10/24/23 06:27 latex AdvReac Rash Verified 10/24/23 06:27 Latex, Natural Rubber AdvReac Rash Verified 10/24/23 06:27 seafood AdvReac Stomach Verified 10/24/23 06:27 Upset Sulfa (Sulfonamide AdvReac Hives Verified 10/24/23 06:27 Antibiotics) Review of Systems Review of Systems: Yes all other systems are reviewed and are negative Constitutional: Constitutional: Reports as per [facility] Past Medical History Medical History Overdose on Tylenol Suicide attempt Asthma COPD (chronic obstructive pulmonary disease) Chronic lung disease Neoplasm of parotid gland Depression 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 Drug abuse Bipolar I disorder Post traumatic stress disorder (PTSD) Tobacco use disorder FABIOLA (obstructive sleep apnea) Borderline personality disorder Intermittent explosive disorder Asthma exacerbation in COPD Herpes Tobacco use Bipolar disorder COPD (chronic obstructive pulmonary disease) Surgical History History of ankle surgery History of back surgery Hx of cholecystectomy History of appendectomy Family History Family History Mother COPD (chronic obstructive pulmonary disease) Social History Social History Household Members: None Household Members Other:: [facility] in [place] Housing: Apartment Housing Other:: Sleeps on the couch at [facility] house Do you presently have visiting nurse or other home services: Yes (medication and RAD TECH awaiting) Unable to assess alcohol history related to: Unknown Alcohol intake: never Comment: pt has sitter in room Patient Tobacco Use Status: Current everyday Tobacco user Tobacco use type: Cigarette Cigarette Packs Per Day: 1 Cigarettes Per Day: 8 Years Smoked: 40 e-Cigarette/Vaping Use: Never Used Second Hand Smoke Exposure: No Substance Use Type: Crack/Cocaine Advance Directives: Yes Advance Directives on File: Yes Advance Directives Date on File: 06/17/22 Healthcare Proxy: No Guardian: No service: No Current occupational status: unemployed and disabled Sexual orientation: Straight/Heterosexual Physical Exam Vital Signs: Vital Signs: Last Vital Signs Temp 98.4 F 10/25/23 07:20 Pulse 72 10/25/23 07:56 Resp 18 10/25/23 07:56 BP 120/72 10/25/23 07:20 Pulse Ox 88 L 10/25/23 08:43 O2 Del Method Room Air 10/25/23 08:43 O2 Flow Rate 3 10/25/23 07:20 Oxygen Flow Rate 4 10/24/23 06:27 BMI result Body Mass Index 58.8 Const: General: cooperative, comfortable and no acute distress Orientation/consciousness: patient oriented x3 Limitations: no limitations HEENT: Head: Yes normal to inspection, Yes normocephalic and Yes atraumatic Ears: hearing grossly normal bilaterally General nose exam: Normal external nose present Face and sinus: Yes normal facial exam Mouth: Normal oral and palatal mucosa present, oropharynx normal and moist mucous membranes Throat: Yes posterior oropharynx normal Eyes: General: appearance normal, both eyes and all related structures Eyelids: Yes eyelids normal Conjunctivae: conjunctivae normal Sclerae: sclerae normal Pupils: Equal, round and reactive pupils present EOM: EOMs intact bilaterally Neck: Neck: Yes normal visual inspection, Yes full ROM and Yes no lymphadenopathy Lymphatic: no lymphadenopathy noted Chest: Chest palpation & inspection: normal inspection of the chest Resp: Other: Tight inspiratory and expiratory wheezes heard throughout all lung carey Effort & Inspection: normal respiratory effort and able to speak in complete sentences Cardio: Rate: regular rate Rhythm: regular rhythm Heart sounds: S1 normal heart sound present and S2 normal heart sound present GI: Inspection: Yes normal to inspection Skin: General skin exam: no rashes or lesions noted Trauma: no lacerations or abrasions Wounds: no wounds Neuro: General: patient oriented x3 and moves all extremities Cranial nerves: Yes Equal, round and reactive pupils present Extrem: Other: No lower extremity edema noted. General: Yes normal to inspection Right upper extremity: normal to inspection Left upper extremity: normal to inspection Right lower extremity: normal to inspection Left lower extremity: normal to inspection Course Reevaluation(s) Reevaluation #1: lactic returns and is 3.0. cultures ordered. IV fluids ordered. X-ray reviewed as mild interstitial prominence of the bronchovascular spaces, unchanged from prior exam, possibly mild interstitial and or small airway disease. No dense lobar consolidation pneumonia. Patient does not have a white count, no significant left shift. BNP 111. Well administer 1 L of IV fluids, given elevated BNP, in no leukocytosis, patient is not meeting sepsis criteria. I do not want to administer greater than 1 L of IV fluids given elevated BNP. Time: 08:38 Reevaluation #2: Spoke to patient about current oxygen saturation dipping down to 80% on room air. Given dyspnea and COPD exacerbation in workup today, I believe that hospital admission is warranted. She is feeling better after receiving the updraft however given oxygen saturation she should be monitored through admissionn. Discussed case with hospitalist, Dr. Cavazos. transfer of care initiated. Time: 09:01 Medications Administered Discontinued Medications Generic Name Dose Route Start Last Admin Trade Name Jacob PRN Reason Stop Dose Admin Albuterol/Ipratropium 3 ml 10/24/23 12:00 10/25/23 07:56 Albuterol/Iprat 2.5/0.5mg 3 Ml Ampul.Neb INHALE 3 ml RQ4H WHILE AWAKE TEJA Administration Azithromycin 500 mg 10/25/23 09:30 10/25/23 08:25 Azithromycin 500 Mg Tablet PO 500 mg Q24H TEJA Administration Clonidine HCl 0.2 mg 10/24/23 21:00 10/24/23 20:27 Clonidine Hcl 0.2 Mg Tablet PO 0.2 mg BEDTIME TEJA Administration Protocol Albuterol Sulfate 7.5 mg/ 0 mg 10/24/23 06:31 10/24/23 06:33 Albuterol/Ipratropium 3 ml INHALE 10/24/23 06:32 1 each ONCE ONE Administration Cyanocobalamin 1,000 mcg 10/25/23 09:00 10/25/23 08:25 Cyanocobalamin (Vitamin B-12) 1,000 Mcg Tablet PO 1,000 mcg DAILY TEJA Administration Enoxaparin Sodium 40 mg 10/24/23 09:30 10/25/23 08:25 Enoxaparin Sodium 40 Mg/0.4 Ml Syringe SUBCUT Not Given Q24H TEJA Ferrous Sulfate 324 mg 10/25/23 09:00 10/25/23 08:25 Ferrous Sulfate 324 Mg Tablet. PO 324 mg DAILY TEJA Administration Gabapentin 400 mg 10/24/23 15:00 10/25/23 08:25 Gabapentin 400 Mg Capsule PO 400 mg TID TEJA Administration Guaifenesin/Dextromethorphan 5 ml 10/24/23 09:30 10/25/23 06:27 Guaifenesin Dm 100/10/5 Ml 5 Ml Syrup PO 5 ml Q4H PRN Administration Cough Sodium Chloride 1,000 mls @ 999 mls/hr 10/24/23 08:43 10/24/23 12:38 Ns IV 10/24/23 09:43 Infused .Q1H1M ONE Infusion Levofloxacin 500 mg in 100 mls @ 100 mls/hr 10/24/23 08:54 10/24/23 11:00 Levaquin IV 10/24/23 09:53 Infused ONCE ONE Infusion [place] Carbonate 450 mg 10/24/23 15:00 10/25/23 08:25 [place] Carbonate Er 450 Mg Tablet.Er PO 450 mg TID TEJA Administration Methylprednisolone Sodium Succinate 125 mg 10/24/23 07:11 10/24/23 07:23 Methylprednisolone Sod Succ 125 Mg/2 Ml Vial IVPUSH 10/24/23 07:12 125 mg ONCE ONE Administration Methylprednisolone Sodium Succinate 40 mg 10/24/23 21:30 10/25/23 08:25 Methylprednisolone Sod Succ 40 Mg/Ml Vial IVPUSH 40 mg Q12H TEJA Administration Olanzapine 10 mg 10/24/23 21:00 10/24/23 20:27 Olanzapine 10 Mg Tablet PO 10 mg BEDTIME TEJA Administration Omeprazole 20 mg 10/25/23 06:30 10/25/23 06:22 Omeprazole 20 Mg Capsule. PO 20 mg DAILY@0630 TEJA Administration Ropinirole HCl 1 mg 10/24/23 21:00 10/24/23 20:27 Ropinirole Hcl 1 Mg Tablet PO 1 mg BEDTIME TEJA Administration Sodium Chloride 3 ml 10/24/23 16:00 10/25/23 08:25 0.9 % Sodium Chloride Flush 3 Ml Syringe IVFLUSH 3 ml QSHIFT TEJA Administration Medical Decision Making Medical Decision Making [facility] Narrative: This is a 53-year-old female, with a history of asthma, COPD, depression, bipolar disorder, PTSD, FABIOLA borderline personality disorder, presenting to the emergency department with complaints of shortness of breath for the last day. on arrival, blood pressure 117/75 pulse 85, patient placed on 3 L nasal cannula, oxygen saturation 93%. She is not typically on oxygen at home. Of review of medical record, patient was previously seen in the emergency department on October 15, 2023 where she was having increased shortness of breath as well as crisis. X-ray at that time showed ground-glass opacities consistent with pneumonia, she was given a dose of Levaquin. This was discontinued after which a 1 time dose. Given increased need of oxygen with hypoxia, recent possible pneumonia, patient will likely need hospital admission plan: labs, EKG, chest x-ray, viral swabs, Solu-Medrol 125 IV push Differential Diagnosis Differential Diagnoses: The differential diagnosis associated with the presentation includes pneumonia, upper respiratory infection, bronchitis, acute respiratory failure Admission/Observation Consideration of admission/observation: Escalation of care including admission/observation considered given increased need for oxygen, with history COPD, asthma, in respiratory failure, patient will likely need hospital admission for further treatment evaluation. Consult Healthcare Provider Management of the patient was discussed with: Hospitalist Lab Data [facility] Lab Attestation statement: I reviewed the patient's lab results. see course 10/25/23 08:04 10/25/23 08:04 Labs: Lab Results 10/24/23 10/24/23 10/24/23 Range/Units 06:39 07:16 07:36 WBC 10.0 (4.8-10.8) X10*3/uL RBC 4.60 (4.20-5.50) X10*6/uL Hgb 14.3 (12.0-16.0) g/dl Hct 45.6 (37.0-47.0) % MCV 99.1 H (80.0-98.0) fL MCH 31.1 (27.0-33.0) pg MCHC 31.4 (31.0-35.0) g/dl RDW 13.0 (11.0-16.0) % Plt Count 269 (160-400) X10*3/uL MPV 10.1 (9.4-12.3) fL Immature Gran % (Auto) 0.3 (0.0-0.4) % Neut % (Auto) 74.4 H (45-73) % Lymph % (Auto) 17.7 L (20-40) % [place] % (Auto) 5.6 (2-11) % Eos % (Auto) 1.4 (0-4) % Baso % (Auto) 0.6 (0-2) % Lymph # (Auto) 1.8 (1.2-4.9) X10*3/uL [place] # (Auto) 0.6 (0.1-1.2) X10*3/uL Eos # (Auto) 0.1 (0.0-0.4) X10*3/uL Baso # (Auto) 0.1 (0.0-0.2) X10*3/uL Abs Immat Gran (auto) 0.03 (0.00-0.03) X10*3/uL Absolute Neuts (auto) 7.4 (2.0-8.3) x10*3/uL Absolute Nucleated RBC 0.000 (0.0-0.012) X10*3/uL Nucleated RBC % (auto) 0.0 (0.0-0.2) /100WBC Sodium 142 (135-145) mmol/L Potassium 3.5 (3.3-5.1) mmol/L Chloride 106 (96-108) mmol/L Carbon Dioxide 27 (22-29) mmol/L Anion Gap 13 (12-20) BUN 7 L (9-16) mg/dL Creatinine 0.69 (0.5-1.4) mg/dL Estim Creat Clear Calc 147.9 Estimated GFR > 60 Random Glucose 137 H (60-115) mg/dL Lactic Acid (0.5-2.0) mmol/L Calcium 9.1 D (8.4-10.2) mg/dL Troponin I High Sens < 2.7 (<3.5-17.0) ng/L B-Natriuretic Peptide 111 H (<100) pg/mL Influenza Type A (PCR) NEGATIVE (Negative) Influenza Type B (PCR) NEGATIVE (Negative) RSV RNA Qual (PCR) NEGATIVE (Negative) SARS-CoV-2 RNA (RT-PCR) NEGATIVE (Negative) 10/24/23 Range/Units 08:08 WBC (4.8-10.8) X10*3/uL RBC (4.20-5.50) X10*6/uL Hgb (12.0-16.0) g/dl Hct (37.0-47.0) % MCV (80.0-98.0) fL MCH (27.0-33.0) pg MCHC (31.0-35.0) g/dl RDW (11.0-16.0) % Plt Count (160-400) X10*3/uL MPV (9.4-12.3) fL Immature Gran % (Auto) (0.0-0.4) % Neut % (Auto) (45-73) % Lymph % (Auto) (20-40) % [place] % (Auto) (2-11) % Eos % (Auto) (0-4) % Baso % (Auto) (0-2) % Lymph # (Auto) (1.2-4.9) X10*3/uL [place] # (Auto) (0.1-1.2) X10*3/uL Eos # (Auto) (0.0-0.4) X10*3/uL Baso # (Auto) (0.0-0.2) X10*3/uL Abs Immat Gran (auto) (0.00-0.03) X10*3/uL Absolute Neuts (auto) (2.0-8.3) x10*3/uL Absolute Nucleated RBC (0.0-0.012) X10*3/uL Nucleated RBC % (auto) (0.0-0.2) /100WBC Sodium (135-145) mmol/L Potassium (3.3-5.1) mmol/L Chloride (96-108) mmol/L Carbon Dioxide (22-29) mmol/L Anion Gap (12-20) BUN (9-16) mg/dL Creatinine (0.5-1.4) mg/dL Estim Creat Clear Calc Estimated GFR Random Glucose (60-115) mg/dL Lactic Acid 3.0 H* (0.5-2.0) mmol/L Calcium (8.4-10.2) mg/dL Troponin I High Sens (<3.5-17.0) ng/L B-Natriuretic Peptide (<100) pg/mL Influenza Type A (PCR) (Negative) Influenza Type B (PCR) (Negative) RSV RNA Qual (PCR) (Negative) SARS-CoV-2 RNA (RT-PCR) (Negative) Independent Interpretation I performed an independent interpretation of an: EKG Interpretation: EKG normal sinus rhythm ventricular rate of 89 beats per minute, DC interval 138, QTC 481, no ST elevation or depression Radiology Impression Discussion of test interpretation with radiology: I have reviewed the radiologist's reading. Radiologist Impression: EXAMINATION: XR chest 1V CLINICAL INFORMATION: Dyspnea COMPARISON: 10/15/2023 TECHNIQUE: Single portable frontal view. Tubes and lines: None Lungs and pleura: Mild interstitial prominence of the bronchovascular spaces unchanged from prior exam, possibly mild interstitial and/or small airway disease. No dense lobar consolidation lobar pneumonia. Heart and mediastinum: The mediastinum is within normal limits.. Bones/soft tissue: Skeletal structures included are normal for patient's age. XR/XR chest 1V IMPRESSION: * Mild interstitial prominence of the bronchovascular spaces unchanged from prior exam, possibly mild interstitial and/or small airway disease. * No dense lobar consolidation pneumonia. Dictated By: Silvana Sylvester MD Chronic Conditions Patient?s care impacted by: Other ( COPD, asthma,) Critical Care Time Critical Care Time Critical Care Time: Yes Total Critical Care Time: 35 Attestation: I have personally provided critical care time exclusive of time spent on separately billable procedures. Time includes review of lab data, radiology results, discussion with consultants, and monitoring for potential decompensation. Intervention performed as documented. Discharge Plan Discharge Clinical Impression: COPD exacerbation, Dyspnea Patient Disposition: Still a Patient Interventions: Admission Worksheet (ED) Last Done: 10/24/23 13:34 Discharge Date/Time: 10/24/23 13:39
[2023-10-24 07:21] LABS: MANUAL DIFF FLAG NO
[2023-10-24] MEDS: methylPREDNISolone Sod Succ 125 MG/2 ML VIAL IVPUSH (07:23)
[2023-10-24 07:25] LABS: Influenza A PCR NEGATIVE (Negative); Influenza B PCR NEGATIVE (Negative); Resp Syncy Virus RNA Qual PCR NEGATIVE (Negative); SARS COV2 PCR INHOUSE NEGATIVE (Negative)
[2023-10-24 07:32] LABS: Basophils Absolute Auto 0.1 X10*3/uL (0.0-0.2); Basophils Percent Auto 0.6 % (0-2); Eosinophils Absolute Auto 0.1 X10*3/uL (0.0-0.4); Eosinophils Percent Auto 1.4 % (0-4); Hematocrit 45.6 % (37.0-47.0); Hemoglobin 14.3 g/dl (12.0-16.0); Imm Gran Abs Auto 0.03 X10*3/uL (0.00-0.03); Imm Gran Pct Auto 0.3 % (0.0-0.4); Lymphocytes Absolute Auto 1.8 X10*3/uL (1.2-4.9); Lymphocytes Percent Auto 17.7 % (20-40); Mean Corpuscular HGB Conc 31.4 g/dl (31.0-35.0); Mean Corpuscular Hemoglobin 31.1 pg (27.0-33.0); Mean Corpuscular Volume 99.1 fL (80.0-98.0); Mean Platelet Volume 10.1 fL (9.4-12.3); Monocytes Absolute Auto 0.6 X10*3/uL (0.1-1.2); Monocytes Percent Auto 5.6 % (2-11); Neutrophils Absolute Auto 7.4 x10*3/uL (2.0-8.3); Neutrophils Percent Auto 74.4 % (45-73); Platelet Count 269 X10*3/uL (160-400)
--- NOTE | 2023-10-24 07:42 | PC.NURSE ---
pt a&o x4, calm, and cooperative. 22G IV placed to L forearm. labs drawn and sent. pt difficult stick. pt is sob, wheezy, and has coughing spells. pt medicated per dec. pt on the bedside monitor, sating 94% on 2L O2 via NC. pt sitting upright in high fowlers. pt 1 assist to bedside commode. provided with water and brooks abner per provider approval. quietly resting on stretcher in no apparent distress. rr even/unlabored. plan of care ongoing.
[2023-10-24 08:07] LABS: B Type Natriuretic Peptide 111 pg/mL (<100)
[2023-10-24 08:26] LABS: Anion Gap 13 (12-20); Blood Urea Nitrogen 7 mg/dL (9-16); Calcium 9.1 mg/dL (8.4-10.2); Carbon Dioxide 27 mmol/L (22-29); Chloride 106 mmol/L (96-108); Creatinine Clr Calc Pharmacy 147.9; Estimated Glomerular Filt Rate > 60; Glucose Random 137 mg/dL (60-115); Potassium 3.5 mmol/L (3.3-5.1); Sodium 142 mmol/L (135-145)
[2023-10-24 08:38] LABS: Troponin-I High Sensitivity < 2.7 ng/L (<3.5-17.0)
[2023-10-24] MEDS: 0.9 % Sodium Chloride 1,000 ML 999 ML IV (08:57)
[2023-10-24] MEDS: levoFLOXacin/D5W 500 MG/100 ML PIGGYBACK 100 MG IV (09:22)
--- NOTE | 2023-10-24 09:32 | P.HPHOSP_ITS ---
History of Present Illness Date of Service: 10/24/23 Chief Complaint: sob 53F PMH morbid obesity, moderate persistent asthma, COPD, FABIOLA on CPAP, GERD, mood disorder, tobacco use disorder presented with shortness of breath. Patient states she has been feeling short of breath for about 2 days prior to presentation. Associated with dry cough. Denies chest pain, fever, chills. Symptoms did not resolve with outpatient treatment so she called EMS. Found to be hypoxic to high 80s on room air. Chest x-ray unremarkable. 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 Drug abuse Bipolar I disorder Post traumatic stress disorder (PTSD) Tobacco use disorder FABIOLA (obstructive sleep apnea) Borderline personality disorder Intermittent explosive disorder Asthma exacerbation in COPD Herpes Tobacco use Bipolar disorder COPD (chronic obstructive pulmonary disease) Family History Mother COPD (chronic obstructive pulmonary disease) Surgical History History of ankle surgery History of back surgery Hx of cholecystectomy History of appendectomy Social History Household Members: None Household Members Other:: Residential in [place] Housing: Apartment Housing Other:: Sleeps on the couch at [facility] house Do you presently have visiting nurse or other home services: Yes (2 VNA, [employer], 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 [employer]) Unable to assess alcohol history related to: Unknown Alcohol intake: never Comment: pt has sitter in room Patient Tobacco Use Status: Current everyday Tobacco user Tobacco use type: Cigarette Cigarette Packs Per Day: 1 Cigarettes Per Day: 20.0 Years Smoked: 40 Smoked in Last 30 Days: Yes e-Cigarette/Vaping Use: Never Used Second Hand Smoke Exposure: Yes Use of substances other than those prescribed or required for medical reasons: No Substance Use Type: Crack/Cocaine Advance Directives: Yes Advance Directives on File: Yes Advance Directives Date on File: 06/17/22 Patient : No service: No Current occupational status: unemployed and disabled Sexual orientation: Straight/Heterosexual Meds Allergies Allergy/AdvReac Type Severity Reaction Status Date / Time aspirin Allergy Mild Anaphylaxis Verified 10/24/23 06:27 ampicillin Allergy Rash Verified 10/24/23 06:27 Penicillins Allergy Anaphylaxis Verified 10/24/23 06:27 latex AdvReac Rash Verified 10/24/23 06:27 Latex, Natural Rubber AdvReac Rash Verified 10/24/23 06:27 seafood AdvReac Stomach Verified 10/24/23 06:27 Upset Sulfa (Sulfonamide AdvReac Hives Verified 10/24/23 06:27 Antibiotics) Active Medications: Current Medications Albuterol/Ipratropium (Albuterol/Iprat 2.5/0.5mg 3 Ml Ampul.Neb) 3 ml INHALE RQ4H WHILE AWAKE [facility] Azithromycin (Azithromycin 500 Mg Tablet) 500 mg PO Q24H TEJA Sodium Chloride (Ns) 1,000 mls @ 999 mls/hr IV .Q1H1M ONE Stop: 10/24/23 09:43 Last Admin: 10/24/23 08:57 Dose: 999 mls/hr Levofloxacin (Levaquin) 500 mg in 100 mls @ 100 mls/hr IV ONCE ONE Stop: 10/24/23 09:53 Last Admin: 10/24/23 09:22 Dose: 100 mls/hr Methylprednisolone Sodium Succinate (Methylprednisolone Sod Succ 40 Mg/Ml Vial) 40 mg IVPUSH Q12H [facility] Home Medications Medication Instructions Recorded Confirmed Last Taken Type lithium carbonate 450 mg 450 mg PO TID 05/14/23 10/15/23 10/15/23 13:00 History tablet,extended release cyanocobalamin (vitamin B-12) 1,000 mcg PO DAILY 06/11/23 10/15/23 10/15/23 History 1,000 mcg tablet (Vitamin B-12) ipratropium 0.5 mg-albuterol 3 mg 3 ml inhalation RQ6H PRN Shortness 06/11/23 10/15/23 Unknown History (2.5 mg base)/3 mL nebulization Of Breath Or Wheezing soln gabapentin 300 mg capsule 400 mg PO TID 10/15/23 10/15/23 10/15/23 13:00 History Physical Exam 2 Vital Signs and Narrative: Vital Signs: Last Vital Signs Temp 98.2 F 10/24/23 06:27 Pulse 88 10/24/23 06:34 Resp 24 H 10/24/23 06:34 BP 117/75 10/24/23 06:27 Pulse Ox 88 L 10/24/23 08:00 O2 Del Method Room Air 10/24/23 08:00 Oxygen Flow Rate 4 10/24/23 06:27 BMI result Body Mass Index 58.8 General: AO X 3, no acute distress Resp: wheeze bilateral, no accessory muscles used CVS: S1,S2,RRR GI: soft, non tender, non distended Neuro: motor grossly intact, alert Psych: appropriate affect, appropriate insight Results Labs 10/24/23 07:16 10/24/23 07:36 Labs: Laboratory Results - last 24 hr 10/24/23 10/24/23 10/24/23 06:39 07:16 07:36 MCV 99.1 H MCH 31.1 MCHC 31.4 RDW 13.0 Plt Count 269 MPV 10.1 Immature Gran % (Auto) 0.3 Neut % (Auto) 74.4 H Lymph % (Auto) 17.7 L [place] % (Auto) 5.6 Eos % (Auto) 1.4 Baso % (Auto) 0.6 Lymph # (Auto) 1.8 [place] # (Auto) 0.6 Eos # (Auto) 0.1 Baso # (Auto) 0.1 Abs Immat Gran (auto) 0.03 Absolute Neuts (auto) 7.4 Absolute Nucleated RBC 0.000 Nucleated RBC % (auto) 0.0 Anion Gap 13 Estim Creat Clear Calc 147.9 Estimated GFR > 60 Random Glucose 137 H Lactic Acid Calcium 9.1 D B-Natriuretic Peptide 111 H Influenza Type A (PCR) NEGATIVE Influenza Type B (PCR) NEGATIVE RSV RNA Qual (PCR) NEGATIVE SARS-CoV-2 RNA (RT-PCR) NEGATIVE 10/24/23 08:08 MCV MCH MCHC RDW Plt Count MPV Immature Gran % (Auto) Neut % (Auto) Lymph % (Auto) [place] % (Auto) Eos % (Auto) Baso % (Auto) Lymph # (Auto) [place] # (Auto) Eos # (Auto) Baso # (Auto) Abs Immat Gran (auto) Absolute Neuts (auto) Absolute Nucleated RBC Nucleated RBC % (auto) Anion Gap Estim Creat Clear Calc Estimated GFR Random Glucose Lactic Acid 3.0 H* Calcium B-Natriuretic Peptide Influenza Type A (PCR) Influenza Type B (PCR) RSV RNA Qual (PCR) SARS-CoV-2 RNA (RT-PCR) Imaging Radiologist's Impressions: Impressions Chest X-Ray 10/24/23 08:13 IMPRESSION: * Mild interstitial prominence of the bronchovascular spaces unchanged from prior exam, possibly mild interstitial and/or small airway disease. * No dense lobar consolidation pneumonia. Assessment and Plan (1) Dyspnea: Status: Acute Plan 53F PMH morbid obesity, moderate persistent asthma, COPD, FABIOLA on CPAP, GERD, mood disorder, tobacco use disorder presented with shortness of breath Acute hypoxic respiratory failure secondary to COPD/moderate persistent asthma with acute decompensation IV Solu-Medrol, DuoNebs, azithromycin Wean O2 as tolerated Morbid obesity Weight loss recommend Smoking cessation FABIOLA Continue CPAP at night Mood disorder Continue mood stabilizers DVT prophylaxis-Lovenox Full code Patient with COPD/asthma exacerbation causing hypoxia and requiring O2 supplementation, due to risk factors of morbid obesity at risk for further decompensation, therefore, expected to require at least 2 minutes inpatient Quality Stroke Does the patient have a stroke diagnosis?: No VTE Prior VTE?: No VTE Risk Level:: Medical - moderate - high VTE Device Contraindication: Treatment Not Indicated VTE Drug Contraindication: N/A - Med Ordered
[2023-10-24] MEDS: Enoxaparin Sodium 40 MG/0.4 ML SYRINGE SUBCUT (09:54)
--- NOTE | 2023-10-24 09:57 | PC.NURSE ---
pt taken off of O2 for trial with LASHONDA Aguila. pt desated to 88% on room air. placed back on 4L O2 via NC sating 93%. pt ood to commode again. sts she became dizzy and does not feel comfortable getting out of bed again to use bathroom. pt requesting to use purewick. pt currently resting quietly on stretcher, attempting to sleep as she sts she has not slept in 3 days. rr even/unlabored 23RR. plan of care ongoing. awaiting inpatient bed assignment.
[2023-10-24 10:11] LABS: Reflex Lactate? Lactic Acid Added
[2023-10-24 10:54] LABS: ~Lactic Acid-LAB USE ONLY 2.7 mmol/L (0.5-2.0)
--- NOTE | 2023-10-24 10:59 | PC.NURSE ---
critical lab result, lactic acid 2.7. reported to Dr. Pizarro.
--- NOTE | 2023-10-24 11:31 | PC.NURSE ---
Order by Dr. Pizarro to stop repeat lactic acid.
[2023-10-24 12:38] LABS: Reflex Lactate? 2 Y
--- NOTE | 2023-10-24 13:40 | PC.NURSE ---
report complete on pt. awaiting transport to inpatient room.
[2023-10-24] MEDS: guaiFENesin DM 100/10/5 ML 5 ML SYRUP PO ×2 (14:54→20:26)
[2023-10-24] MEDS: Gabapentin 400 MG CAPSULE PO ×2 (14:54→20:27)
[2023-10-24] MEDS: Lithium Carbonate ER 450 MG TABLET.ER PO ×2 (14:54→20:27)
[2023-10-24] MEDS: 0.9 % Sodium Chloride Flush 3 ML SYRINGE IVFLUSH ×2 (15:06→20:27)
[2023-10-24] MEDS: Albuterol/Iprat 2.5/0.5MG 3 ML AMPUL.NEB INHALE (15:50)
[2023-10-24] MEDS: methylPREDNISolone Sod Succ 40 MG/ML VIAL IVPUSH (20:26)
[2023-10-24] MEDS: OLANZapine 10 MG TABLET PO (20:27)
[2023-10-24] MEDS: cloNIDine HCL 0.2 MG TABLET PO (20:27)
[2023-10-24] MEDS: rOPINIRole HCL 1 MG TABLET PO (20:27)
[2023-10-25 04:00] VITALS: BP 113/55; PULSE 77; RESP 18; TEMP 37.7; O2SAT 90
[2023-10-25] MEDS: Omeprazole 20 MG CAPSULE.DR PO (06:22)
[2023-10-25] MEDS: guaiFENesin DM 100/10/5 ML 5 ML SYRUP PO (06:27)
[2023-10-25 07:20] VITALS: BP 120/72; PULSE 72; RESP 20; TEMP 36.9; O2SAT 93
[2023-10-25 07:56] VITALS: PULSE 72; RESP 18; O2SAT 92
[2023-10-25] MEDS: Albuterol/Iprat 2.5/0.5MG 3 ML AMPUL.NEB INHALE (07:56)
--- NOTE | 2023-10-25 08:17 | HO.PM.IMPN ---
Subjective Subjective Date of Service: 10/25/23 Interval History: feeling better Physical Exam Vital Signs: Vital Signs: Last Vital Signs Temp 98.4 F 10/25/23 07:20 Pulse 72 10/25/23 07:56 Resp 18 10/25/23 07:56 BP 120/72 10/25/23 07:20 Pulse Ox 93 10/25/23 07:20 O2 Del Method Nasal Cannula 10/25/23 07:20 O2 Flow Rate 3 10/25/23 07:20 Oxygen Flow Rate 4 10/24/23 06:27 BMI result Body Mass Index 46.0 General: AO X 3, no acute distress Resp: poor air entry, wheezing bilateral, no accessory muscles used CVS: S1,S2,RRR GI: soft, non tender, non distended Neuro: motor grossly intact, alert Objective Data Active Medications Albuterol/Ipratropium (Albuterol/Iprat 2.5/0.5mg 3 Ml Ampul.Neb) 3 ml INHALE RQ4H WHILE AWAKE [facility] Last Admin: 10/25/23 07:56 Dose: 3 ml Documented By: MARIYA Azithromycin (Azithromycin 500 Mg Tablet) 500 mg PO Q24H TEJA Clonidine HCl (Clonidine Hcl 0.2 Mg Tablet) 0.2 mg PO BEDTIME [facility]; Protocol Last Admin: 10/24/23 20:27 Dose: 0.2 mg Documented By: JESSICA Cyanocobalamin (Cyanocobalamin (Vitamin B-12) 1,000 Mcg Tablet) 1,000 mcg PO DAILY [facility] Enoxaparin Sodium (Enoxaparin Sodium 40 Mg/0.4 Ml Syringe) 40 mg SUBCUT Q24H [facility] Last Admin: 10/24/23 09:54 Dose: 40 mg Documented By: ELLIOTT Ferrous Sulfate (Ferrous Sulfate 324 Mg Tablet.Dr) 324 mg PO DAILY [facility] Gabapentin (Gabapentin 400 Mg Capsule) 400 mg PO TID [facility] Last Admin: 10/24/23 20:27 Dose: 400 mg Documented By: JESSICA Guaifenesin/Dextromethorphan (Guaifenesin Dm 100/10/5 Ml 5 Ml Syrup) 5 ml PO Q4H PRN PRN Reason: Cough Last Admin: 10/25/23 06:27 Dose: 5 ml Documented By: JESSICA [place] Carbonate ([place] Carbonate Er 450 Mg Tablet.Er) 450 mg PO TID [facility] Last Admin: 10/24/23 20:27 Dose: 450 mg Documented By: JESSICA Methylprednisolone Sodium Succinate (Methylprednisolone Sod Succ 40 Mg/Ml Vial) 40 mg IVPUSH Q12H [facility] Last Admin: 10/24/23 20:26 Dose: 40 mg Documented By: JESSICA Olanzapine (Olanzapine 10 Mg Tablet) 10 mg PO BEDTIME [facility] Last Admin: 10/24/23 20:27 Dose: 10 mg Documented By: JESSICA Omeprazole (Omeprazole 20 Mg Capsule.Dr) 20 mg PO DAILY@0630 [facility] Last Admin: 10/25/23 06:22 Dose: 20 mg Documented By: JESSICA Ropinirole HCl (Ropinirole Hcl 1 Mg Tablet) 1 mg PO BEDTIME [facility] Last Admin: 10/24/23 20:27 Dose: 1 mg Documented By: JESSICA Sodium Chloride (0.9 % Sodium Chloride Flush 3 Ml Syringe) 3 ml IVFLUSH QSHIFT [facility] Last Admin: 10/24/23 20:27 Dose: 3 ml Documented By: JESSICA Labs 10/24/23 07:16 10/24/23 07:36 Labs: Laboratory Results - last 24 hr 10/24/23 10/24/23 10/24/23 07:36 08:08 10:34 Anion Gap 13 Estim Creat Clear Calc 147.9 Estimated GFR > 60 Random Glucose 137 H Lactic Acid 3.0 H* Lactic Acid F/U @ 2Hr 2.7 H* Calcium 9.1 D Assessment and Plan (1) Dyspnea: Status: Acute Plan 53F PMH morbid obesity, moderate persistent asthma, COPD, FABIOLA on CPAP, GERD, mood disorder, tobacco use disorder presented with shortness of breath Acute hypoxic respiratory failure secondary to COPD/moderate persistent asthma with acute decompensation feeling much better, but still very wheezy and hypoxic IV Solu-Medrol, DuoNebs, azithromycin Wean O2 as tolerated Morbid obesity Weight loss recommend Smoking cessation FABIOLA Continue CPAP at night Mood disorder Continue mood stabilizers DVT prophylaxis-Lovenox Full code reason for continued hospitalization:hypoxia Quality Stroke Does the patient have a stroke diagnosis?: No VTE Prior VTE?: No VTE Risk Level:: Medical - moderate - high VTE Device Contraindication: Treatment Not Indicated VTE Drug Contraindication: N/A - Med Ordered
[2023-10-25] MEDS: 0.9 % Sodium Chloride Flush 3 ML SYRINGE IVFLUSH (08:25)
[2023-10-25] MEDS: Gabapentin 400 MG CAPSULE PO (08:25)
[2023-10-25] MEDS: methylPREDNISolone Sod Succ 40 MG/ML VIAL IVPUSH (08:25)
[2023-10-25] MEDS: Cyanocobalamin (Vitamin B-12) 1,000 MCG TABLET 1000 MCG PO (08:25)
[2023-10-25] MEDS: Azithromycin 500 MG TABLET PO (08:25)
[2023-10-25] MEDS: Ferrous Sulfate 324 MG TABLET.DR PO (08:25)
[2023-10-25] MEDS: Lithium Carbonate ER 450 MG TABLET.ER PO (08:25)
--- NOTE | 2023-10-25 08:40 | PC.NURSE ---
Pt's O2 sat off oxygen was 88% pt refusing to be placed back on O2 . MD Pizarro notified at bedside to see pt . Pt stating shes going home today even if that means leaving AMA
[2023-10-25 08:43] VITALS: O2SAT 88
--- NOTE | 2023-10-25 08:46 | PM.DS ---
DS: Providers Provider Date of Service: 10/25/23 Date of admission: 10/24/23 09:38 Primary care physician: Mike Malone MD DS: Diagnosis Discharge Diagnosis (1) Dyspnea: Status: Acute DS: Summary Hospital Course Hospital Course: from initial hpi: 53F PMH morbid obesity, moderate persistent asthma, COPD, FABIOLA on CPAP, GERD, mood disorder, tobacco use disorder presented with shortness of breath. Patient states she has been feeling short of breath for about 2 days prior to presentation. Associated with dry cough. Denies chest pain, fever, chills. Symptoms did not resolve with outpatient treatment so she called EMS. Found to be hypoxic to high 80s on room air. Chest x-ray unremarkable. hospital course: Patient was admitted for acute hypoxic respiratory failure secondary to COPD/moderate persistent asthma with acute decompensation. She was treated with IV Solu-Medrol, duo nebs, azithromycin. Next day patient was feeling much better despite continuing to be hypoxic on room air and having diffuse bilateral wheezing. Patient decided to leave hospital against medical advice. She understands that she is still hypoxic and was able to demonstrate understanding of the risks of leaving against medical advice including . Prescription was sent for prednisone taper. For morbid obesity weight loss recommended. For nicotine dependence smoking cessation is recommended. For FABIOLA she uses CPAP at night. For mood disorder she was continued on mood stabilizers. Time Attestation Discharge coordination time: Greater than 30 minutes Quality: Safe Use of Opioids Does Pt have an Active Cancer Diagnosis on the Problem List?: No Quality: Stroke Does the patient have a stroke diagnosis?: No Physical Exam Vital Signs: Vital Signs: Last Vital Signs Temp 98.4 F 10/25/23 07:20 Pulse 72 10/25/23 07:56 Resp 18 10/25/23 07:56 BP 120/72 10/25/23 07:20 Pulse Ox 88 L 10/25/23 08:43 O2 Del Method Room Air 10/25/23 08:43 O2 Flow Rate 3 10/25/23 07:20 Oxygen Flow Rate 4 10/24/23 06:27 BMI result Body Mass Index 46.0 General: AO X 3, no acute distress Resp: poor air entry, wheezing bilateral, no accessory muscles used CVS: S1,S2,RRR GI: soft, non tender, non distended Neuro: motor grossly intact, alert DS: Data Data Completed and Pending Completed studies during hospitalization [Text1]: Procedures Assistance with Respiratory Ventilation, Less than 24 Consecutive Hours, Continuous Positive Airway Pressure (06/11/23) Drainage of Left Parotid Gland, Percutaneous Approach, Diagnostic (11/09/21) Drainage of Neck, Percutaneous Approach, Diagnostic (03/17/22) Excision of Left Parotid Gland, Percutaneous Approach, Diagnostic (03/17/22) Introduction of Remdesivir Anti-infective into Peripheral Vein, Percutaneous Approach, [employer] (06/01/22) Labs on day of discharge: Laboratory Results - last 24 hr 10/24/23 10:34 Lactic Acid F/U @ 2Hr 2.7 H* Discharge Plan Discharge Anticipated Discharge Date/Time: 10/25/23 08:41 Patient Disposition: Left Against Medical Advice Discharge Diagnosis: copd Referrals: Mike Malone MD [Primary Care Provider] - 1 Week Discharge Medications: Continued ropinirole 1 mg Tablet 1 mg PO BEDTIME Qty: 30 0RF olanzapine 10 mg Tablet 10 mg PO BEDTIME Qty: 30 0RF clonidine HCl 0.2 mg Tablet 0.2 mg PO BEDTIME Qty: 30 0RF Protocol: Hold for SBP< HOLD for SBP < : 90 albuterol sulfate [Ventolin HFA] 90 mcg/actuation Hfa Aerosol Inhaler 2 puff inhalation Q4H PRN (Reason: shortness of breath or wheezing) Qty: 6.7 0RF tiotropium bromide [Spiriva with HandiHaler] 18 mcg Capsule, W/Inhalation Device 18 mcg inhalation RDAILY Qty: 20 0RF ferrous sulfate 324 mg (65 mg iron) Tablet,Delayed Release (Dr/Ec) 324 mg PO DAILY Qty: 30 0RF omeprazole 20 mg Capsule,Delayed Release(Dr/Ec) 20 mg PO DAILY@0630 Qty: 30 0RF lithium carbonate 450 mg tablet extended release 450 mg PO TID cyanocobalamin (vitamin B-12) [Vitamin B-12] 1,000 mcg tablet 1,000 mcg PO DAILY ipratropium-albuterol 0.5 mg-3 mg(2.5 mg base)/3 mL solution for nebulization 3 ml inhalation RQ6H PRN (Reason: Shortness Of Breath Or Wheezing) gabapentin 400 mg Capsule 400 mg PO TID prednisone 10 mg Tablet See Taper PO DAILY Qty: 15 0RF Taper: Prednisone 40 mg daily for 1 Day and 0 Hour 30 mg daily for 3 Days and 0 Hour 20 mg daily for 3 Days and 0 Hour 10 mg daily for 3 Days and 0 Hour Rx Instructions: 30 MG FOR 3 DAYS 20MG FOR 3 DAYS 10 MG FOR 3 DAYS Discharge Orders: Discharge Order (Routine); Ordered 10/25/23 Ordered By: Luciano Pizarro Diet: Advance to usual diet Stand Alone Forms: Patient Portal Discharge page Care Plan Goals: recovery Health Concerns: hypoxia Plan of Treatment: prednisone taper, unable to manage your acute hypoxia appropriately in outpatient setting Assessment: see above
--- NOTE | 2023-10-25 08:50 | MHC.CM.PN ---
pt left ama
[2023-10-25 09:19] LABS: Hematocrit 43.2 % (37.0-47.0); Hemoglobin 13.1 g/dl (12.0-16.0); Mean Corpuscular HGB Conc 30.3 g/dl (31.0-35.0); Mean Corpuscular Hemoglobin 30.5 pg (27.0-33.0); Mean Corpuscular Volume 100.5 fL (80.0-98.0); Mean Platelet Volume 10.4 fL (9.4-12.3); Platelet Count 280 X10*3/uL (160-400); Red Cell Distribution Width 12.7 % (11.0-16.0); White Blood Count 9.4 X10*3/uL (4.8-10.8)
[2023-10-25 09:41] LABS: Anion Gap 12 (12-20); Blood Urea Nitrogen 10 mg/dL (9-16); Carbon Dioxide 31 mmol/L (22-29); Chloride 104 mmol/L (96-108); Creatinine Clr Calc Pharmacy 143.7; Estimated Glomerular Filt Rate > 60; Glucose Fasting 95 mg/dL (60-99); Potassium 4.6 mmol/L (3.3-5.1); Sodium 142 mmol/L (135-145)
== END 2023-10-25 09:08 | disposition left against medical advice (07) | DRG 140 ==
LOC: HO.ED 06:49 → HO.EDOVER 09:39 → HO.S3 12:11
PROVIDERS: Physician Assistant Medical; Admitting Provider Internal Medicine; Emergency Provider Internal Medicine; PCP Internal Medicine; Visit Provider Internal Medicine
DX: J44.1 Chronic obstructive pulmonary disease with (acute) exacerbation (principal); J96.01 Acute respiratory failure with hypoxia; Z68.42 Body mass index [BMI] 45.0-49.9, adult; J45.41 Moderate persistent asthma with (acute) exacerbation; G47.33 Obstructive sleep apnea (adult) (pediatric); E66.01 Morbid (severe) obesity due to excess calories; F17.210 Nicotine dependence, cigarettes, uncomplicated; Z20.822 Contact with and (suspected) exposure to COVID-19; Z91.040 Latex allergy status; Z71.6 Tobacco abuse counseling; Z79.899 Other long term (current) drug therapy
CPT/HCPCS: 0241U; 36415; 71045; 80048; 83605; 83880; 84484; 85025; 85027; 87040; 93005; 94640; 94660; 99285; J1650; J1956; J2920; J2930

== ENCOUNTER → 2023-10-24 06:25 | Outpatient (BNV) | payer MEDICAID, SELFPAY | PROVIDERS: Admitting Provider Internal Medicine; Emergency Provider Internal Medicine; PCP Internal Medicine; Visit Provider Internal Medicine Cardiovascular Disease | DX: R94.31 Abnormal electrocardiogram [ECG] [EKG] (principal) | CPT/HCPCS: 93010 ==

== ENCOUNTER → 2023-10-24 09:38 | Outpatient (BNV) | payer MEDICAID, SELFPAY | PROVIDERS: Admitting Provider Internal Medicine; Emergency Provider Internal Medicine; PCP Internal Medicine; Visit Provider Internal Medicine | DX: J96.01 Acute respiratory failure with hypoxia (principal) | CPT/HCPCS: 99223; 99239 ==

== ENCOUNTER 2023-10-25 21:16 | Emergency (ER) | payer MEDICAID, OTHER, SELFPAY ==
[2023-10-25 21:22] VITALS: BP 110/70; PULSE 74; O2SAT 94; BMI 33.4
[2023-10-25 21:30] VITALS: BP 159/97; PULSE 91; RESP 16; TEMP 36.3; O2SAT 90
--- NOTE | 2023-10-25 21:39 | ED_ITS ---
HPI - Psych General Chief Complaint: Psychiatric Symptoms Stated Complaint: Si, used crack tonight Time Seen by Provider: 10/25/23 21:28 Source: patient Mode of arrival: EMS Limitations: no limitations History of Present Illness HPI Narrative: Patient comes to the emergency room by ambulance. Patient called 911, patient states that she feels suicidal, states that she was to jump off a bridge. Patient has been evaluated multiple times for similar complaints. Patient came in voluntarily. Patient admits to using crack cocaine prior to arrival. Denies hurting herself physically in any way. Related Data Home Medications Medication Instructions Recorded Confirmed lithium carbonate 450 mg 450 mg PO TID 05/14/23 10/24/23 tablet,extended release cyanocobalamin (vitamin B-12) 1,000 mcg PO DAILY 06/11/23 10/24/23 1,000 mcg tablet (Vitamin B-12) ipratropium 0.5 mg-albuterol 3 mg 3 ml inhalation RQ6H PRN Shortness 06/11/23 10/24/23 (2.5 mg base)/3 mL nebulization Of Breath Or Wheezing soln gabapentin 400 mg capsule 400 mg PO TID 10/24/23 10/24/23 Previous Rx's Medication Instructions Recorded albuterol sulfate 90 mcg/actuation 2 puff inhalation Q4H PRN 03/22/23 aerosol inhaler (Ventolin HFA) shortness of breath or wheezing #6.7 grams clonidine HCl 0.2 mg tablet 0.2 mg PO BEDTIME #30 tabs 03/22/23 ferrous sulfate 324 mg (65 mg 324 mg PO DAILY #30 tabs 03/22/23 iron) tablet,delayed release olanzapine 10 mg tablet 10 mg PO BEDTIME #30 tabs 03/22/23 omeprazole 20 mg capsule,delayed 20 mg PO DAILY@0630 #30 caps 03/22/23 release ropinirole 1 mg tablet 1 mg PO BEDTIME #30 tabs 03/22/23 tiotropium bromide 18 mcg capsule 18 mcg inhalation RDAILY #20 03/22/23 with inhalation device (Spiriva inhalations with HandiHaler) prednisone 10 mg tablet See Taper PO DAILY #15 tabs 10/25/23 Allergies Allergy/AdvReac Type Severity Reaction Status Date / Time aspirin Allergy Mild Anaphylaxis Verified 10/24/23 06:27 ampicillin Allergy Rash Verified 10/24/23 06:27 Penicillins Allergy Anaphylaxis Verified 10/24/23 06:27 latex AdvReac Rash Verified 10/24/23 06:27 Latex, Natural Rubber AdvReac Rash Verified 10/24/23 06:27 seafood AdvReac Stomach Verified 10/24/23 06:27 Upset Sulfa (Sulfonamide AdvReac Hives Verified 10/24/23 06:27 Antibiotics) Review of Systems Review of Systems: Constitutional : No Weight loss, No Fever, No Chills, No Night Sweats, No Fatigue, No Malaise ENT/Mouth : No Hearing loss, No Ear Pain, No Nasal Congestion, No Sinus Pain, No Hoarseness, No sore throat, No Rhinorrhea, No Swallowing Difficulty Eyes: No Eye Pain, No Swelling, No Redness, No Foreign Body, No Discharge, No Vision Changes Cardiovascular : No Chest Pain, No SOB, No Dyspnea on Exertion, No Orthopnea, No Edema, No Palpitations Respiratory : No Cough, No Sputum, No Wheezing, No Smoke Exposure, No Dyspnea Gastrointestinal : No Nausea, No Vomiting, No Diarrhea, No Constipation, No abdominal Pain, No Hematochezia, No Melena Genitourinary : no irregular bleeding, No Dysuria, No Urinary Frequency, No Hematuria, No Urinary Incontinence, No Urgency, No Flank Pain, No Urinary Flow Changes, No Hesitancy Musculoskeletal : No joint pain, No Myalgias, No Joint Swelling Skin : No Skin Lesions, No rash Neuro : No Weakness, No Numbness, No Paresthesias, No Loss of Consciousness, No Dizziness, No Headache Psych : No Anxiety/Panic, complaining of suicidal ideation, stating she was to jump off a bridge, denies homicidal ideation, admits to crack cocaine use Heme/Lymph: No Bruising, No Bleeding,No Lymphadenopathy Endocrine : No Polyuria, No Polydipsia, No Temperature Intolerance PMF Past Medical History Medical History Overdose on Tylenol Suicide attempt Asthma COPD (chronic obstructive pulmonary disease) Chronic lung disease Neoplasm of parotid gland Depression 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 Drug abuse Bipolar I disorder Post traumatic stress disorder (PTSD) Tobacco use disorder FABIOLA (obstructive sleep apnea) Borderline personality disorder Intermittent explosive disorder Asthma exacerbation in COPD Herpes Tobacco use Bipolar disorder COPD (chronic obstructive pulmonary disease) Surgical History History of ankle surgery History of back surgery Hx of cholecystectomy History of appendectomy Family History Family History Mother COPD (chronic obstructive pulmonary disease) Social History Social History Household Members: None Household Members Other:: Care Home in [place] Housing: Apartment Housing Other:: Sleeps on the couch at [facility] house Do you presently have visiting nurse or other home services: Yes (medication and BEHAVIORAL GENETICIST awaiting) Unable to assess alcohol history related to: Unknown Alcohol intake: never Comment: pt has sitter in room Patient Tobacco Use Status: Current everyday Tobacco user Tobacco use type: Cigarette Cigarette Packs Per Day: 1 Cigarettes Per Day: 8 Years Smoked: 40 e-Cigarette/Vaping Use: Never Used Second Hand Smoke Exposure: No Substance Use Type: Crack/Cocaine Advance Directives: Yes Advance Directives on File: Yes Advance Directives Date on File: 06/17/22 service: No Current occupational status: unemployed and disabled Sexual orientation: Straight/Heterosexual Physical Exam Vital Signs: Vital Signs: Last Vital Signs Temp 97.3 F 10/25/23 21:30 Pulse 91 10/25/23 21:30 Resp 16 10/25/23 21:30 BP 159/97 H 10/25/23 21:30 Pulse Ox 90 L 10/25/23 21:30 O2 Del Method Room Air 10/25/23 21:30 BMI result Body Mass Index 33.4 Const: Other: Appearance: Alert. Oriented X3. No acute distress. Eyes: Pupils equal, round and reactive to light. ENT: Pharynx normal. Neck: Normal inspection. Neck supple. No lymph nodes noted. No crepitus CVS: Normal heart rate and rhythm. Pulses normal. Normal S1 and S2 Respiratory: No respiratory distress. Breath sounds normal. No Wheezing. No rales Abdomen: Soft and nontender. No rigidity. No distention. Skin: Skin warm and dry. Normal skin color. Normal skin turgor. Extremities: No lower extremity edema. No Lacerations. No Rash Neuro: Oriented X 3. No motor deficit. No sensory deficit. Moving all extremities. No slurred speech. CN 2 through 12 grossly intact Psych: calm, cooperative, normal affect Course Course Course Narrative: -patient came voluntarily -care team consult pending -all of patient's labs pending -physician observation started at 21:43 -sign-out given to Dr. Hendrix Medical Decision Making Differential Diagnosis Differential Diagnoses: The differential diagnosis associated with the presentation includes (Polysubstance abuse, anxiety, depression, homeless) Admission/Observation Consideration of admission/observation: Escalation of care including admission/observation considered (Patient is on the physician observation, waiting for care team to see the patient) Discharge Plan Discharge Clinical Impression: Polysubstance abuse, Depression Prescriptions: No Action ropinirole 1 mg Tablet 1 mg PO BEDTIME Qty: 30 0RF olanzapine 10 mg Tablet 10 mg PO BEDTIME Qty: 30 0RF clonidine HCl 0.2 mg Tablet 0.2 mg PO BEDTIME Qty: 30 0RF Protocol: Hold for SBP< HOLD for SBP < : 90 albuterol sulfate [Ventolin HFA] 90 mcg/actuation Hfa Aerosol Inhaler 2 puff inhalation Q4H PRN (Reason: shortness of breath or wheezing) Qty: 6.7 0RF tiotropium bromide [Spiriva with HandiHaler] 18 mcg Capsule, W/Inhalation Device 18 mcg inhalation RDAILY Qty: 20 0RF ferrous sulfate 324 mg (65 mg iron) Tablet,Delayed Release (Dr/Ec) 324 mg PO DAILY Qty: 30 0RF omeprazole 20 mg Capsule,Delayed Release(Dr/Ec) 20 mg PO DAILY@0630 Qty: 30 0RF lithium carbonate 450 mg tablet extended release 450 mg PO TID cyanocobalamin (vitamin B-12) [Vitamin B-12] 1,000 mcg tablet 1,000 mcg PO DAILY ipratropium-albuterol 0.5 mg-3 mg(2.5 mg base)/3 mL solution for nebulization 3 ml inhalation RQ6H PRN (Reason: Shortness Of Breath Or Wheezing) gabapentin 400 mg Capsule 400 mg PO TID prednisone 10 mg Tablet See Taper PO DAILY Qty: 15 0RF Taper: Prednisone 40 mg daily for 1 Day and 0 Hour 30 mg daily for 3 Days and 0 Hour 20 mg daily for 3 Days and 0 Hour 10 mg daily for 3 Days and 0 Hour Rx Instructions: 30 MG FOR 3 DAYS 20MG FOR 3 DAYS 10 MG FOR 3 DAYS
--- NOTE | 2023-10-25 22:15 | PC.NURSE ---
pharmacy is not open- attempted to call for med rec
[2023-10-25 22:43] LABS: MANUAL DIFF FLAG NO
[2023-10-25 22:44] LABS: Basophils Absolute Auto 0.1 X10*3/uL (0.0-0.2); Basophils Percent Auto 0.4 % (0-2); Eosinophils Percent Auto 0.1 % (0-4); Hematocrit 46.8 % (37.0-47.0); Hemoglobin 14.8 g/dl (12.0-16.0); Imm Gran Abs Auto 0.05 X10*3/uL (0.00-0.03); Imm Gran Pct Auto 0.4 % (0.0-0.4); Lymphocytes Absolute Auto 2.2 X10*3/uL (1.2-4.9); Lymphocytes Percent Auto 16.8 % (20-40); Mean Corpuscular HGB Conc 31.6 g/dl (31.0-35.0); Mean Corpuscular Hemoglobin 31.2 pg (27.0-33.0); Mean Corpuscular Volume 98.5 fL (80.0-98.0); Mean Platelet Volume 9.7 fL (9.4-12.3); Monocytes Absolute Auto 1.2 X10*3/uL (0.1-1.2); Monocytes Percent Auto 8.9 % (2-11); Neutrophils Absolute Auto 9.5 x10*3/uL (2.0-8.3); Neutrophils Percent Auto 73.4 % (45-73); Platelet Count 295 X10*3/uL (160-400); Red Blood Count 4.75 X10*6/uL (4.20-5.50); Red Cell Distribution Width 12.9 % (11.0-16.0); White Blood Count 12.9 X10*3/uL (4.8-10.8)
[2023-10-25 22:45] LABS: Appearance Urine Clear; Color Urine Yellow; Glucose Urine UA Negative (Negative); Leukocyte Esterase Urine Negative (Negative); Nitrite Urine Negative (Negative); Specific Gravity - Urine 1.015 (1.005-1.025); Urine Blood Negative (Negative); Urine Ketones Negative (Negative); Urine Protein Negative (Neg-Trace)
[2023-10-25 22:51] LABS: Amphetamine Screen Urine Not Detected (Not Detect); Barbiturates, Urine Not Detected (Not Detect); Benzodiazepines Screen Urine Not Detected (Not Detect); Cannabinoid Screen Urine Not Detected (Not Detect); Cocaine Screen Urine POSITIVE (Not Detect); Fentanyl, urine Not Detected (Not Detect); Opiate Screen Urine Not Detected (Not Detect); Phencyclidine Screen Urine Not Detected (Not Detect)
[2023-10-25 22:54] LABS: Ethanol < 10 mg/dL
[2023-10-25 22:57] LABS: Alanine Aminotransferase 14 U/L (0-31); Albumin Level 4.7 g/dL (3.5-5.0); Alkaline Phosphatase 75 U/L (39-117); Anion Gap 13 (12-20); Aspartate Amino Transferase 20 U/L (5-31); Bilirubin Direct < 0.2 mg/dL (0.0-0.5); Bilirubin Total 0.2 mg/dL (0.0-1.0); Blood Urea Nitrogen 14 mg/dL (9-16); Calcium 10.7 mg/dL (8.4-10.2); Carbon Dioxide 34 mmol/L (22-29); Chloride 100 mmol/L (96-108); Creatinine Clr Calc Pharmacy 103.4; Estimated Glomerular Filt Rate > 60; Glucose Random 106 mg/dL (60-115); Potassium 3.7 mmol/L (3.3-5.1); Sodium 143 mmol/L (135-145); Total Protein 7.5 g/dL (6.5-8.0)
--- NOTE | 2023-10-26 | ECG_ITS ---
Test Reason : CHEST PAIN Blood Pressure : / mmHG Vent. Rate : 081 BPM Atrial Rate : 081 BPM P-R Int : 136 ms QRS Dur : 084 ms QT Int : 388 ms P-R-T Axes : -21 060 051 degrees QTc Int : 450 ms Normal sinus rhythm Nonspecific T wave abnormality Abnormal ECG When compared with ECG of 24-OCT-2023 06:39, No significant change was found Referred By: Priscila Lynn Electronically Signed By:ALEJANDRO MCCLELLAN
[2023-10-26 00:13] VITALS: BP 146/69; PULSE 82; O2SAT 90
[2023-10-26 07:38] VITALS: BP 112/72; PULSE 84; RESP 25; TEMP 36.4; O2SAT 91
--- NOTE | 2023-10-26 07:47 | PC.NURSE ---
Pt reporting she is feeling short of breath O2 between 88-92% on RA. provider notified pt requesting cough medicine and inhaler, orders placed awaiting verification at this time.
[2023-10-26] MEDS: Albuterol Sulfate 90 MCG 8 GM INHALER 2 PUFF INHALE (08:00)
[2023-10-26] MEDS: Benzonatate 100 MG CAPSULE 200 MG PO (08:00)
[2023-10-26 08:08] VITALS: BP 127/64; PULSE 86; RESP 16; TEMP 36.2; O2SAT 91
--- NOTE | 2023-10-26 10:44 | MHC.RECOVSUP ---
Met with pt in [facility] who is here for psychiatric needs with the Care Team. Pt informs she has been drinking about $50-$100 of alcohol and smoking $50-$100 of crack a day. Pt is not currently interested in ATS and is looking for a recovery operator. Rack Room Worker referral has been made and pt has no other questions or concerns at this time.
== END 2023-10-26 10:42 | disposition home or self-care (01) ==
PROVIDERS: Emergency Medicine; Emergency Provider Emergency Medicine Emergency Medical Services
DX: R45.851 Suicidal ideations (principal); R07.89 Other chest pain; F33.1 Major depressive disorder, recurrent, moderate; F17.200 Nicotine dependence, unspecified, uncomplicated; Z79.899 Other long term (current) drug therapy; Z71.6 Tobacco abuse counseling
CPT/HCPCS: 36415; 80053; 80307; 81003; 82248; 85025; 93005; 99285; S9485

== ENCOUNTER → 2023-10-26 00:57 | Outpatient (BNV) | payer MEDICAID, SELFPAY | PROVIDERS: Emergency Provider Emergency Medicine Emergency Medical Services; Visit Provider Internal Medicine | DX: R94.31 Abnormal electrocardiogram [ECG] [EKG] (principal) | CPT/HCPCS: 93010 ==

== ENCOUNTER 2023-11-01 18:41 | Emergency (ER) | payer MEDICAID, SELFPAY ==
--- NOTE | 2023-11-01 | ECG_ITS ---
Test Reason : age over 50, checking for prolonged QT Blood Pressure : / mmHG Vent. Rate : 086 BPM Atrial Rate : 086 BPM P-R Int : 154 ms QRS Dur : 088 ms QT Int : 344 ms P-R-T Axes : 069 060 054 degrees QTc Int : 411 ms Normal sinus rhythm Nonspecific T wave abnormality Abnormal ECG When compared with ECG of 26-OCT-2023 00:57, No significant change was found Referred By: Paola Gabriel Electronically Signed By:Deangelo Gutierres
[2023-11-01 18:49] VITALS: BP 130/64; BP 146/73; PULSE 94; PULSE 95; RESP 20; TEMP 36.3; O2SAT 93; O2SAT 94; BMI 36.6
--- NOTE | 2023-11-01 18:54 | ED_ITS ---
HPI - Psych General Chief Complaint: Psychiatric Symptoms Stated Complaint: SI with plan History of Present Illness HPI Narrative: Patient is a 53-year-old female with a previous history of COPD bipolar history of polysubstance abuse admits to using crack cocaine had suicidal thoughts about jumping off the bridge. Patient from home. Denies any fever chills. No coughing or congestion or upper respiratory symptoms. No physical complaints at this time Related Data Home Medications Medication Instructions Recorded Confirmed lithium carbonate 450 mg 450 mg PO TID 05/14/23 10/24/23 tablet,extended release cyanocobalamin (vitamin B-12) 1,000 mcg PO DAILY 06/11/23 10/24/23 1,000 mcg tablet (Vitamin B-12) ipratropium 0.5 mg-albuterol 3 mg 3 ml inhalation RQ6H PRN Shortness 06/11/23 10/24/23 (2.5 mg base)/3 mL nebulization Of Breath Or Wheezing soln gabapentin 400 mg capsule 400 mg PO TID 10/24/23 10/24/23 Previous Rx's Medication Instructions Recorded albuterol sulfate 90 mcg/actuation 2 puff inhalation Q4H PRN 03/22/23 aerosol inhaler (Ventolin HFA) shortness of breath or wheezing #6.7 grams clonidine HCl 0.2 mg tablet 0.2 mg PO BEDTIME #30 tabs 03/22/23 ferrous sulfate 324 mg (65 mg 324 mg PO DAILY #30 tabs 03/22/23 iron) tablet,delayed release olanzapine 10 mg tablet 10 mg PO BEDTIME #30 tabs 03/22/23 omeprazole 20 mg capsule,delayed 20 mg PO DAILY@0630 #30 caps 03/22/23 release ropinirole 1 mg tablet 1 mg PO BEDTIME #30 tabs 03/22/23 tiotropium bromide 18 mcg capsule 18 mcg inhalation RDAILY #20 03/22/23 with inhalation device (Spiriva inhalations with HandiHaler) prednisone 10 mg tablet See Taper PO DAILY #15 tabs 10/25/23 Allergies Allergy/AdvReac Type Severity Reaction Status Date / Time aspirin Allergy Mild Anaphylaxis Verified 10/24/23 06:27 ampicillin Allergy Rash Verified 10/24/23 06:27 Penicillins Allergy Anaphylaxis Verified 10/24/23 06:27 latex AdvReac Rash Verified 12/25/23 06:27 Latex, Natural Rubber AdvReac Rash Verified 10/24/23 06:27 seafood AdvReac Stomach Verified 10/24/23 06:27 Upset Sulfa (Sulfonamide AdvReac Hives Verified 10/24/23 06:27 Antibiotics) Review of Systems 2 Review of Systems: Positive suicidal ideation Yes all other systems are reviewed and are negative PMFSH Past Medical History Attestation statement: The following information was validated with the patient. Onset Date is defined in the Problem List Problems that require an onset date and time if occurred within 24 hrs of arrival to the ED Aortic Dissection and Rupture; Neurologic impairment; Cardiopulmonary Arrest; Endotracheal Intubation; Insertion or Replacement of Mechanical Circulatory Assist Device Medical History Overdose on Tylenol Suicide attempt Asthma COPD (chronic obstructive pulmonary disease) Chronic lung disease Neoplasm of parotid gland Depression 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 Drug abuse Bipolar I disorder Post traumatic stress disorder (PTSD) Tobacco use disorder FABIOLA (obstructive sleep apnea) Borderline personality disorder Intermittent explosive disorder Asthma exacerbation in COPD Herpes Tobacco use Bipolar disorder COPD (chronic obstructive pulmonary disease) Surgical History History of ankle surgery History of back surgery Hx of cholecystectomy History of appendectomy Family History Family History Mother COPD (chronic obstructive pulmonary disease) Social History Social History Household Members: None Household Members Other:: Care Home in [place] Housing: Apartment Housing Other:: Sleeps on the couch at [facility] house Do you presently have visiting nurse or other home services: Yes (medication and DENTAL CERAMIST awaiting) Unable to assess alcohol history related to: Unknown Alcohol intake: never Comment: pt has sitter in room Patient Tobacco Use Status: Current everyday Tobacco user Tobacco use type: Cigarette Cigarette Packs Per Day: 1 Cigarettes Per Day: 8 Years Smoked: 40 e-Cigarette/Vaping Use: Never Used Second Hand Smoke Exposure: No Substance Use Type: Crack/Cocaine Advance Directives: Yes Advance Directives on File: Yes Advance Directives Date on File: 06/17/22 service: No Current occupational status: unemployed and disabled Sexual orientation: Straight/Heterosexual Physical Exam 2 Vital Signs: Vital Signs: Last Vital Signs Temp 97.4 F 11/01/23 18:49 Pulse 94 11/01/23 18:49 Resp 20 11/01/23 18:49 BP 146/73 H 11/01/23 18:49 Pulse Ox 93 11/01/23 18:49 O2 Del Method Room Air 11/01/23 18:49 BMI result Body Mass Index 36.6 Appearance: Alert. Oriented X3. No acute distress. Eyes: Pupils equal, round and reactive to light. ENT: Pharynx normal. Neck: Normal inspection. Neck supple. No lymph nodes noted. No crepitus CVS: Normal heart rate and rhythm. Pulses normal. Normal S1 and S2 Respiratory: No respiratory distress. Breath sounds normal. No Wheezing. No rales Abdomen: Soft and nontender. No rigidity. No distention. good BS x4 Skin: Skin warm and dry. Normal skin color. Normal skin turgor. Extremities: No lower extremity edema. Neurovascular intact to all extremities. No Lacerations. No Rash Neuro: Oriented X 3. No motor deficit. No sensory deficit. Moving all extermities. No slurred speech Medical Decision Making Medical Decision Making [facility] Narrative: 53 years old continue to use crack now has suicidal thoughts. Previous history of suicidal thoughts in the past with attempts. Patient evaluated by crisis. Wants to re-evaluate patient in a.m.. Currently no distress. Differential Diagnosis Differential Diagnoses: The differential diagnosis associated with the presentation includes Depression, suicidal ideation Admission/Observation Consideration of admission/observation: Escalation of care including admission/observation considered Crisis to evaluate patient Consult Healthcare Provider Management of the patient was discussed with: [employer] (Care team/crisis) Lab Data [facility] Lab Attestation statement: I reviewed the patient's lab results. 11/01/23 19:30 11/01/23 19:30 Labs: Lab Results 11/01/23 Range/Units 19:30 WBC 12.0 H (4.8-10.8) X10*3/uL RBC 4.96 (4.20-5.50) X10*6/uL Hgb 15.2 (12.0-16.0) g/dl Hct 47.8 H (37.0-47.0) % MCV 96.4 (80.0-98.0) fL MCH 30.6 (27.0-33.0) pg MCHC 31.8 (31.0-35.0) g/dl RDW 12.6 (11.0-16.0) % Plt Count 296 (160-400) X10*3/uL MPV 9.3 L (9.4-12.3) fL Immature Gran % (Auto) 0.2 (0.0-0.4) % Neut % (Auto) 75.1 H (45-73) % Lymph % (Auto) 17.9 L (20-40) % Page % (Auto) 5.1 (2-11) % Eos % (Auto) 0.9 (0-4) % Baso % (Auto) 0.8 (0-2) % Lymph # (Auto) 2.2 (1.2-4.9) X10*3/uL Page # (Auto) 0.6 (0.1-1.2) X10*3/uL Eos # (Auto) 0.1 (0.0-0.4) X10*3/uL Baso # (Auto) 0.1 (0.0-0.2) X10*3/uL Abs Immat Gran (auto) 0.03 (0.00-0.03) X10*3/uL Absolute Neuts (auto) 9.0 H (2.0-8.3) x10*3/uL Absolute Nucleated RBC 0.000 (0.0-0.012) X10*3/uL Nucleated RBC % (auto) 0.0 (0.0-0.2) /100WBC Sodium 140 (135-145) mmol/L Potassium 4.7 D (3.3-5.1) mmol/L Chloride 104 (96-108) mmol/L Carbon Dioxide 28 (22-29) mmol/L Anion Gap 13 (12-20) BUN 11 (9-16) mg/dL Creatinine 0.84 (0.5-1.4) mg/dL Estim Creat Clear Calc 91.6 Estimated GFR > 60 Fasting Glucose 104 H (60-99) mg/dL Calcium 10.1 (8.4-10.2) mg/dL Urine Color Yellow Urine Appearance Cloudy Urine pH 7.0 (5.0-9.0) Ur Specific [place] 1.015 (1.005-1.025) Urine Protein Trace (Neg-Trace) mg/dL Urine Glucose (UA) Negative (Negative) mg/dL Urine Ketones Negative (Negative) mg/dL Urine Blood Negative (Negative) Urine Nitrite Negative (Negative) Ur Leukocyte Esterase Trace H (Negative) Urine RBC 3-5 H (0-2) /HPF Urine WBC 6-10 H (0-5) /HPF Ur Squamous Epith Cells 11-20 (0-2) /HPF Urine Bacteria 1+ (None Seen) Hyaline Casts 3-5 (0-2) /LPF Salicylates < 5.0 L (15-30) mg/dL Urine Opiates Screen Not Detected (Not Detect) Urine Fentanyl Screen Not Detected (Not Detect) Ur Barbiturates Screen Not Detected (Not Detect) Ur Phencyclidine Scrn Not Detected (Not Detect) Ur Amphetamines Screen Not Detected (Not Detect) U Benzodiazepines Scrn Not Detected (Not Detect) Urine Cocaine Screen POSITIVE H (Not Detect) U Marijuana (THC) Screen Not Detected (Not Detect) Ethyl Alcohol < 10 mg/dL External Record Review External record reviewed: Inpatient record Discharge Plan Discharge Clinical Impression: Cocaine abuse, Suicidal ideation Patient Disposition: Still a Patient Prescriptions: No Action ropinirole 1 mg Tablet 1 mg PO BEDTIME Qty: 30 0RF olanzapine 10 mg Tablet 10 mg PO BEDTIME Qty: 30 0RF clonidine HCl 0.2 mg Tablet 0.2 mg PO BEDTIME Qty: 30 0RF Protocol: Hold for SBP< HOLD for SBP < : 90 albuterol sulfate [Ventolin HFA] 90 mcg/actuation Hfa Aerosol Inhaler 2 puff inhalation Q4H PRN (Reason: shortness of breath or wheezing) Qty: 6.7 0RF tiotropium bromide [Spiriva with HandiHaler] 18 mcg Capsule, W/Inhalation Device 18 mcg inhalation RDAILY Qty: 20 0RF ferrous sulfate 324 mg (65 mg iron) Tablet,Delayed Release (Dr/Ec) 324 mg PO DAILY Qty: 30 0RF omeprazole 20 mg Capsule,Delayed Release(Dr/Ec) 20 mg PO DAILY@0630 Qty: 30 0RF lithium carbonate 450 mg tablet extended release 450 mg PO TID cyanocobalamin (vitamin B-12) [Vitamin B-12] 1,000 mcg tablet 1,000 mcg PO DAILY ipratropium-albuterol 0.5 mg-3 mg(2.5 mg base)/3 mL solution for nebulization 3 ml inhalation RQ6H PRN (Reason: Shortness Of Breath Or Wheezing) gabapentin 400 mg Capsule 400 mg PO TID prednisone 10 mg Tablet See Taper PO DAILY Qty: 15 0RF Taper: Prednisone 40 mg daily for 1 Day and 0 Hour 30 mg daily for 3 Days and 0 Hour 20 mg daily for 3 Days and 0 Hour 10 mg daily for 3 Days and 0 Hour Rx Instructions: 30 MG FOR 3 DAYS 20MG FOR 3 DAYS 10 MG FOR 3 DAYS Interventions: [place]-Suicide Risk Severity Scale Last Done: 11/01/23 22:39
[2023-11-01 19:35] LABS: MANUAL DIFF FLAG NO
[2023-11-01 19:39] LABS: Basophils Absolute Auto 0.1 X10*3/uL (0.0-0.2); Basophils Percent Auto 0.8 % (0-2); Eosinophils Absolute Auto 0.1 X10*3/uL (0.0-0.4); Eosinophils Percent Auto 0.9 % (0-4); Hematocrit 47.8 % (37.0-47.0); Hemoglobin 15.2 g/dl (12.0-16.0); Imm Gran Abs Auto 0.03 X10*3/uL (0.00-0.03); Imm Gran Pct Auto 0.2 % (0.0-0.4); Lymphocytes Absolute Auto 2.2 X10*3/uL (1.2-4.9); Lymphocytes Percent Auto 17.9 % (20-40); Mean Corpuscular HGB Conc 31.8 g/dl (31.0-35.0); Mean Corpuscular Hemoglobin 30.6 pg (27.0-33.0); Mean Corpuscular Volume 96.4 fL (80.0-98.0); Mean Platelet Volume 9.3 fL (9.4-12.3); Monocytes Absolute Auto 0.6 X10*3/uL (0.1-1.2); Monocytes Percent Auto 5.1 % (2-11); Neutrophils Percent Auto 75.1 % (45-73); Platelet Count 296 X10*3/uL (160-400); Red Blood Count 4.96 X10*6/uL (4.20-5.50); Red Cell Distribution Width 12.6 % (11.0-16.0)
[2023-11-01 19:40] LABS: Appearance Urine Cloudy; Color Urine Yellow; Glucose Urine UA Negative (Negative); Leukocyte Esterase Urine Trace (Negative); Nitrite Urine Negative (Negative); Specific Gravity - Urine 1.015 (1.005-1.025); UMIC TRIGGER UACC YES; Urine Blood Negative (Negative); Urine Ketones Negative (Negative); Urine Protein Trace mg/dL (Neg-Trace)
[2023-11-01 19:44] LABS: Amphetamine Screen Urine Not Detected (Not Detect); Barbiturates, Urine Not Detected (Not Detect); Benzodiazepines Screen Urine Not Detected (Not Detect); Cannabinoid Screen Urine Not Detected (Not Detect); Cocaine Screen Urine POSITIVE (Not Detect); Fentanyl, urine Not Detected (Not Detect); Opiate Screen Urine Not Detected (Not Detect); Phencyclidine Screen Urine Not Detected (Not Detect)
[2023-11-01 19:45] LABS: Bacteria Urine 1+ (None Seen); UACC Culture Trigger YES
[2023-11-01 19:50] LABS: Anion Gap 13 (12-20); Blood Urea Nitrogen 11 mg/dL (9-16); Calcium 10.1 mg/dL (8.4-10.2); Carbon Dioxide 28 mmol/L (22-29); Chloride 104 mmol/L (96-108); Creatinine Clr Calc Pharmacy 91.6; Estimated Glomerular Filt Rate > 60; Ethanol < 10 mg/dL; Glucose Fasting 104 mg/dL (60-99); Potassium 4.7 mmol/L (3.3-5.1); Sodium 140 mmol/L (135-145)
[2023-11-01 19:52] LABS: Salicylate < 5.0 mg/dL (15-30)
[2023-11-01 23:09] VITALS: BP 148/84; PULSE 92; RESP 20; TEMP 36.6; O2SAT 91
[2023-11-01] MEDS: OLANZapine 10 MG TABLET PO (23:56)
[2023-11-01] MEDS: rOPINIRole HCL 1 MG TABLET PO (23:56)
[2023-11-01] MEDS: Lithium Carbonate ER 450 MG TABLET.ER PO (23:56)
[2023-11-01] MEDS: cloNIDine HCL 0.2 MG TABLET PO (23:56)
[2023-11-01] MEDS: Gabapentin 400 MG CAPSULE PO (23:56)
[2023-11-02] VITALS (10 sets, daily range): BP systolic 102–126; BP diastolic 56–71; PULSE 74–91; RESP 14–23; TEMP 36.6–36.7; O2SAT 85–94
--- NOTE | 2023-11-02 00:44 | PC.NURSE ---
pt transported from POD to main ED at this time. pt sating 85-86% on room air.
--- NOTE | 2023-11-02 00:49 | PC.NURSE ---
0015 - O2 sat noted to be in the mid to low 80's on room air; respiratory and charge informed. Patient was sat up and coughed and took some deep breaths and came to the high 80's-90 but did not sustain sat. 0025 - Respiratory at bedside giving patient inhaler treatment and patient came up to mid to high 80's, talk of patient needing CPAP for the night. 0030 - Patient moved to ED bed 4 for further respiratory treatment.
--- NOTE | 2023-11-02 00:53 | PC.NURSE ---
respiratory at bedside placing pt on cpap.
--- NOTE | 2023-11-02 02:24 | PC.NURSE ---
pt removed CPAP at this time, pt states i dont want this anymore . provider and respiratory aware. pt placed on 2L nasal cannula, kenneth 88-89.
--- NOTE | 2023-11-02 02:28 | PC.NURSE ---
respiratory at bedside and placed pt back on CPAP with 2L.
--- NOTE | 2023-11-02 06:19 | PC.NURSE ---
pt taken off cpap at this time by respiratory and placed on 2L nasal cannula. pt sating 92%.
[2023-11-02] MEDS: Cyanocobalamin (Vitamin B-12) 1,000 MCG TABLET 1000 MCG PO (10:26)
[2023-11-02] MEDS: Ferrous Sulfate 324 MG TABLET.DR PO (10:26)
--- NOTE | 2023-11-02 12:22 | PC.NURSE ---
O2 90% on RA. Denies SI. Advocating for discharge home to make appointments that can't be missed . Future oriented. Belongings returned. Discharged with LYFT ride.
== END 2023-11-02 12:23 | disposition home or self-care (01) ==
PROVIDERS: Emergency Provider Emergency Medicine Emergency Medical Services
DX: R45.851 Suicidal ideations (principal); F14.10 Cocaine abuse, uncomplicated; F41.9 Anxiety disorder, unspecified; F31.9 Bipolar disorder, unspecified; F43.10 Post-traumatic stress disorder, unspecified; J44.9 Chronic obstructive pulmonary disease, unspecified; F17.210 Nicotine dependence, cigarettes, uncomplicated; Z79.899 Other long term (current) drug therapy
CPT/HCPCS: 36415; 80048; 80179; 80307; 81001; 85025; 87086; 93005; 99285; S9485

== ENCOUNTER → 2023-11-01 20:06 | Outpatient (BNV) | payer MEDICAID, SELFPAY | PROVIDERS: Emergency Provider Emergency Medicine Emergency Medical Services; Visit Provider Internal Medicine Cardiovascular Disease | DX: R94.31 Abnormal electrocardiogram [ECG] [EKG] (principal) | CPT/HCPCS: 93010 ==

== ENCOUNTER 2023-11-10 12:42 | Emergency (ER) | payer OTHER, SELFPAY ==
[2023-11-10 12:46] VITALS: BP 130/78; PULSE 84; RESP 18; TEMP 36.6; O2SAT 97; BMI 44.9
--- NOTE | 2023-11-10 12:47 | ED_ITS ---
HPI - General Adult General Chief complaint: Psychiatric Symptoms Stated complaint: crisis depressed Time Seen by Provider: 11/10/23 13:31 Source: patient Mode of arrival: ambulatory Limitations: no limitations History of Present Illness HPI narrative: Patient is a 53 year old assigned female at with a history of COPD and bipolar disorder presenting to the emergency department today with suicidal ideation, homicidal ideation, and anger. Patient states that over the last week she has had worsening suicidal ideation and is having homicidal ideation towards her neighbors for being loud. Patient denies any dizziness, lightheadedness, abdominal pain, nausea, vomiting, fever, chills, blurry vision, double vision, loss of vision, chest pain, difficulty breathing, shortness of breath, back pain, night sweats, pain with urination, increased urinary frequency, increased urinary urgency, blood in her urine or stool, syncope or a near syncopal episode, recent trauma or falls, bowel incontinence, bladder incontinence, bowel retention, bladder retention, or any other complaints at this time. Onset (ago): week(s) (1) Relieving factors: none Exacerbating factors: none Associated symptoms: denies other symptoms Treatments prior to arrival: none Related Data Home Medications Medication Instructions Recorded Confirmed lithium carbonate 450 mg 450 mg PO TID 05/14/23 11/01/23 tablet,extended release cyanocobalamin (vitamin B-12) 1,000 mcg PO DAILY 06/11/23 11/01/23 1,000 mcg tablet (Vitamin B-12) ipratropium 0.5 mg-albuterol 3 mg 3 ml inhalation RQ6H PRN Shortness 06/11/23 11/01/23 (2.5 mg base)/3 mL nebulization Of Breath Or Wheezing soln gabapentin 400 mg capsule 400 mg PO TID 10/24/23 11/01/23 Previous Rx's Medication Instructions Recorded albuterol sulfate 90 mcg/actuation 2 puff inhalation Q4H PRN 03/22/23 aerosol inhaler (Ventolin HFA) shortness of breath or wheezing #6.7 grams clonidine HCl 0.2 mg tablet 0.2 mg PO BEDTIME #30 tabs 03/22/23 ferrous sulfate 324 mg (65 mg 324 mg PO DAILY #30 tabs 03/22/23 iron) tablet,delayed release olanzapine 10 mg tablet 10 mg PO BEDTIME #30 tabs 03/22/23 omeprazole 20 mg capsule,delayed 20 mg PO DAILY@0630 #30 caps 03/22/23 release ropinirole 1 mg tablet 1 mg PO BEDTIME #30 tabs 03/22/23 tiotropium bromide 18 mcg capsule 18 mcg inhalation RDAILY #20 03/22/23 with inhalation device (Spiriva inhalations with HandiHaler) prednisone 10 mg tablet See Taper PO DAILY #15 tabs 10/25/23 Allergies Allergy/AdvReac Type Severity Reaction Status Date / Time aspirin Allergy Mild Anaphylaxis Verified 10/24/23 06:27 ampicillin Allergy Rash Verified 10/24/23 06:27 Penicillins Allergy Anaphylaxis Verified 10/24/23 06:27 latex AdvReac Rash Verified 10/24/23 06:27 Latex, Natural Rubber AdvReac Rash Verified 10/24/23 06:27 seafood AdvReac Stomach Verified 10/24/23 06:27 Upset Sulfa (Sulfonamide AdvReac Hives Verified 10/24/23 06:27 Antibiotics) Review of Systems 2 Constitutional: Constitutional: Reports no additional constitutional complaints, Denies chills, Denies fever(s) and Denies night sweats Eyes: Eyes: Reports no additional eye complaints, Denies blurry vision, Denies change in vision, Denies diplopia, Denies eye discharge, Denies loss of vision and Denies eye pain ENT: Denies dizziness Cardiovascular: Cardiovascular: Reports no additional cardiovascular complaints, Denies chest pain, Denies lightheadedness, Denies Loss of Consciousness and Denies dyspnea Respiratory: Respiratory: Reports no additional respiratory complaints and Denies dyspnea Gastrointestinal: Gastrointestinal: Reports no additional gastrointestinal complaints, Denies abdominal pain, Denies melena, Denies hematochezia, Denies change in bowel habits and Denies change in stool character Genitourinary: Genitourinary: Denies hematuria, Denies urinary frequency, Denies dysuria, Denies urinary incontinence, Denies urinary hesitancy and Denies urinary urgency Musculoskeletal: Musculoskeletal: Reports no additional musculoskeletal complaints, Denies numbness and Denies tingling Neurologic: Denies dizziness, Denies loss of vision, Denies numbness and Denies tingling Psychiatric: Psychiatric: Reports no additional psychiatric complaints, Reports homicidal ideation and Reports suicidal ideation Endocrine: Endocrine: Reports no additional endocrine complaints Hematologic/Lymphatic: Hematologic/Lymphatic: Reports no additional hematologic/lymphatic complaints Allergic/Immunologic: Allergic/Immunologic: Reports no additional allergic/immunologic complaints [facility] Past Medical History Attestation statement: The following information was validated with the patient. Source: old records reviewed and nursing notes reviewed Onset Date is defined in the Problem List Problems that require an onset date and time if occurred within 24 hrs of arrival to the ED Aortic Dissection and Rupture; Neurologic impairment; Cardiopulmonary Arrest; Endotracheal Intubation; Insertion or Replacement of Mechanical Circulatory Assist Device Medical History Overdose on Tylenol Suicide attempt Asthma COPD (chronic obstructive pulmonary disease) Chronic lung disease Neoplasm of parotid gland Depression 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 Drug abuse Bipolar I disorder Post traumatic stress disorder (PTSD) Tobacco use disorder FABIOLA (obstructive sleep apnea) Borderline personality disorder Intermittent explosive disorder Asthma exacerbation in COPD Herpes Tobacco use Bipolar disorder COPD (chronic obstructive pulmonary disease) Surgical History History of ankle surgery History of back surgery Hx of cholecystectomy History of appendectomy Family History Family History Mother COPD (chronic obstructive pulmonary disease) Social History Social History Household Members: None Household Members Other:: [facility] in [place] Housing: Apartment Housing Other:: Sleeps on the couch at [facility] house Do you presently have visiting nurse or other home services: Yes (medication and [employer] awaiting) Unable to assess alcohol history related to: Unknown Alcohol intake: never Comment: pt has sitter in room Patient Tobacco Use Status: Current everyday Tobacco user Tobacco use type: Cigarette Cigarette Packs Per Day: 1 Cigarettes Per Day: 8 Years Smoked: 40 e-Cigarette/Vaping Use: Never Used Second Hand Smoke Exposure: No Substance Use Type: Crack/Cocaine Advance Directives: Yes Advance Directives on File: Yes Advance Directives Date on File: 06/17/22 Healthcare Proxy: No Guardian: No service: No Current occupational status: unemployed and disabled Sexual orientation: Straight/Heterosexual Physical Exam ED Vital Signs: Vital Signs - 24 hr 11/10/23 12:46 11/10/23 16:26 01/12/24 07:57 Temperature 97.9 F 98.9 F Pulse Rate 84 85 Respiratory Rate 18 18 17 Blood Pressure 130/78 137/80 Pulse Oximetry 97 95 Oxygen Delivery Method Room Air Room Air BMI result Body Mass Index 44.9 Const General: cooperative, no acute distress, alert and awake Nutritional Appearance: well nourished Orientation/consciousness: patient oriented x3 Limitations: no limitations HENMT Head: Yes normal to inspection and Yes atraumatic Ears: hearing grossly normal bilaterally and external ears normal General nose exam: Normal external nose present, no nasal discharge noted and no epistaxis Face and sinus: Yes normal facial exam, No abrasion and No laceration Mouth: Normal oral and palatal mucosa present, no drooling and no muffled voice Eyes General: appearance normal, both eyes and all related structures Periorbital: periorbital findings normal Eyelids: Yes eyelids normal Conjunctivae: conjunctivae normal Pupils: Equal, round and reactive pupils present EOM: EOMs intact bilaterally Neck Neck: Yes normal visual inspection, Yes full ROM and Yes no lymphadenopathy Chest Chest palpation & inspection: normal inspection of the chest Resp Effort & Inspection: normal respiratory effort and able to speak in complete sentences GI Inspection: Yes normal to inspection Neuro General: patient oriented x3 and moves all extremities Cranial nerves: Yes Equal, round and reactive pupils present Cognition (Neuro): normal cognition Motor exam (neuro): 5/5 motor strength present throughout Sensory Exam: Normal double simultaneous stimulation for sensation Coordination: [id number] test normal Extrem General: Yes normal to inspection, Yes full ROM and Yes capillary refill normal Psych Appearance: grossly normal Mental Status: mental status grossly normal Affect: normal affect Attitude: cooperative Thought process: Normal thought process present Thought content: Normal thought content present Insight: Good insight present (Psych) Course Course Course Narrative: Suicidal and homicidal ideations x 1 week. Complaining of auditory and visual hallucinations. Voices telling her to overdose on her medications. Plan to overdose on her medications and feels homicidal towards her neighbors. States she is not sleeping well with 1 hr sleep per night, eating is 'poor'. States she has been taking her meds as prescibed with no missed or extra doses. Denies any physical symptoms including no CP, WEBB, or SOB, fever, chills, n/v/d Hx asthma, COPD and chronic cough. HX polysubstance abuse. Denies current use of marijuana, illicit drugs, or ETOH RME: NAD, A&Ox4, MAEx4, steady gait, LS CTA, HR RRR, normal affect, attentive RME completed by Bertrand Reevaluation(s) Reevaluation #1: On evaluation, feels patient was overwhelmed by interactions with neighbors. Denies SI/HI at present and is calm. Will be discharged in the AM Time: 20:55 Reevaluation #2: The patient was seen by the care team this morning and was judged to be appropriate for discharge. The patient was therefore discharged. Time: 09:29 Medications Administered Discontinued Medications Generic Name Dose Route Start Last Admin Trade Name Jacob PRN Reason Stop Dose Admin Acetaminophen 650 mg 11/10/23 16:25 11/10/23 16:33 Acetaminophen 325 Mg Tablet PO 11/10/23 16:26 650 mg ONCE ONE Administration Acetaminophen 975 mg 11/11/23 03:51 11/11/23 03:57 Acetaminophen 325 Mg Tablet PO 11/11/23 03:52 975 mg ONCE ONE Administration Medical Decision Making Medical Decision Making [facility] Narrative: Patient is a 53 year old assigned female at with a history of bipolar disorder and COPD presenting to the emergency department today with suicidal and homicidal ideation. Patient's physical exam was unremarkable. Patient's blood work was unremarkable. Patient's urine is similar to her previous urine which cultured nothing. Will await culture of this current urine before initiating treatment. Patient's EKG was unremarkable. I explained my physical exam findings as well as all test results to the patient. I answered all questions asked by the patient. Patient is awaiting CARE team evaluation. Differential Diagnosis Differential Diagnoses: The differential diagnosis associated with the presentation includes Suicidal Homicidal Admission/Observation Consideration of admission/observation: Escalation of care including admission/observation considered Patient's need for admission or lack there of will be determined after CARE team evaluation. Lab Data [facility] Lab Attestation statement: I reviewed the patient's lab results. My interpretation of these results are in the [facility] Rationale portion of this note. 11/10/23 13:06 11/10/23 13:06 Labs: Lab Results 11/10/23 11/10/23 11/10/23 Range/Units 13:06 13:29 13:32 WBC 7.7 (4.8-10.8) X10*3/uL RBC 5.00 (4.20-5.50) X10*6/uL Hgb 15.3 (12.0-16.0) g/dl Hct 48.6 H (37.0-47.0) % MCV 97.2 (80.0-98.0) fL MCH 30.6 (27.0-33.0) pg MCHC 31.5 (31.0-35.0) g/dl RDW 12.3 (11.0-16.0) % Plt Count 275 (160-400) X10*3/uL MPV 9.9 (9.4-12.3) fL Immature Gran % (Auto) 0.3 (0.0-0.4) % Neut % (Auto) 66.1 (45-73) % Lymph % (Auto) 23.7 (20-40) % [place] % (Auto) 6.5 (2-11) % Eos % (Auto) 2.5 (0-4) % Baso % (Auto) 0.9 (0-2) % Lymph # (Auto) 1.8 (1.2-4.9) X10*3/uL [place] # (Auto) 0.5 (0.1-1.2) X10*3/uL Eos # (Auto) 0.2 (0.0-0.4) X10*3/uL Baso # (Auto) 0.1 (0.0-0.2) X10*3/uL Abs Immat Gran (auto) 0.02 (0.00-0.03) X10*3/uL Absolute Neuts (auto) 5.1 (2.0-8.3) x10*3/uL Absolute Nucleated RBC 0.000 (0.0-0.012) X10*3/uL Nucleated RBC % (auto) 0.0 (0.0-0.2) /100WBC Sodium 139 (135-145) mmol/L Potassium 4.5 (3.3-5.1) mmol/L Chloride 108 (96-108) mmol/L Carbon Dioxide 25 (22-29) mmol/L Anion Gap 11 L (12-20) BUN 7 L (9-16) mg/dL Creatinine 0.78 (0.5-1.4) mg/dL Estim Creat Clear Calc 111.7 Estimated GFR > 60 Random Glucose 90 (60-115) mg/dL Calcium 9.9 (8.4-10.2) mg/dL Total Bilirubin 0.2 (0.0-1.0) mg/dL AST 19 (5-31) U/L ALT 22 (0-31) U/L Alkaline Phosphatase 77 (39-117) U/L Total Protein 7.4 (6.5-8.0) g/dL Albumin 4.3 (3.5-5.0) g/dL Urine Color Yellow Urine Appearance Clear Urine pH 7.5 (5.0-9.0) Ur Specific [place] 1.015 (1.005-1.025) Urine Protein Negative (Neg-Trace) mg/dL Urine Glucose (UA) Negative (Negative) mg/dL Urine Ketones Negative (Negative) mg/dL Urine Blood Negative (Negative) Urine Nitrite Negative (Negative) Ur Leukocyte Esterase Negative (Negative) Urine RBC 0-2 (0-2) /HPF Urine WBC 0-5 (0-5) /HPF Ur Squamous Epith Cells 11-20 (0-2) /HPF Urine Bacteria 2+ (None Seen) Hyaline Casts 0-2 (0-2) /LPF Salicylates (15-30) mg/dL Urine Opiates Screen Not Detected (Not Detect) Urine Fentanyl Screen Not Detected (Not Detect) Acetaminophen (<30) mcg/mL Ur Barbiturates Screen Not Detected (Not Detect) Ur Phencyclidine Scrn Not Detected (Not Detect) Ur Amphetamines Screen Not Detected (Not Detect) U Benzodiazepines Scrn Not Detected (Not Detect) Urine Cocaine Screen Not Detected (Not Detect) U Marijuana (THC) Screen Not Detected (Not Detect) COVID-19 (ENDY) Negative (Negative) COVID-19 Clin Com See Note 11/11/23 Range/Units 03:51 WBC (4.8-10.8) X10*3/uL RBC (4.20-5.50) X10*6/uL Hgb (12.0-16.0) g/dl Hct (37.0-47.0) % MCV (80.0-98.0) fL MCH (27.0-33.0) pg MCHC (31.0-35.0) g/dl RDW (11.0-16.0) % Plt Count (160-400) X10*3/uL MPV (9.4-12.3) fL Immature Gran % (Auto) (0.0-0.4) % Neut % (Auto) (45-73) % Lymph % (Auto) (20-40) % [place] % (Auto) (2-11) % Eos % (Auto) (0-4) % Baso % (Auto) (0-2) % Lymph # (Auto) (1.2-4.9) X10*3/uL [place] # (Auto) (0.1-1.2) X10*3/uL Eos # (Auto) (0.0-0.4) X10*3/uL Baso # (Auto) (0.0-0.2) X10*3/uL Abs Immat Gran (auto) (0.00-0.03) X10*3/uL Absolute Neuts (auto) (2.0-8.3) x10*3/uL Absolute Nucleated RBC (0.0-0.012) X10*3/uL Nucleated RBC % (auto) (0.0-0.2) /100WBC Sodium (135-145) mmol/L Potassium (3.3-5.1) mmol/L Chloride (96-108) mmol/L Carbon Dioxide (22-29) mmol/L Anion Gap (12-20) BUN (9-16) mg/dL Creatinine (0.5-1.4) mg/dL Estim Creat Clear Calc Estimated GFR Random Glucose (60-115) mg/dL Calcium (8.4-10.2) mg/dL Total Bilirubin (0.0-1.0) mg/dL AST (5-31) U/L ALT (0-31) U/L Alkaline Phosphatase (39-117) U/L Total Protein (6.5-8.0) g/dL Albumin (3.5-5.0) g/dL Urine Color Urine Appearance Urine pH (5.0-9.0) Ur Specific [place] (1.005-1.025) Urine Protein (Neg-Trace) mg/dL Urine Glucose (UA) (Negative) mg/dL Urine Ketones (Negative) mg/dL Urine Blood (Negative) Urine Nitrite (Negative) Ur Leukocyte Esterase (Negative) Urine RBC (0-2) /HPF Urine WBC (0-5) /HPF Ur Squamous Epith Cells (0-2) /HPF Urine Bacteria (None Seen) Hyaline Casts (0-2) /LPF Salicylates < 5.0 L (15-30) mg/dL Urine Opiates Screen (Not Detect) Urine Fentanyl Screen (Not Detect) Acetaminophen < 3 (<30) mcg/mL Ur Barbiturates Screen (Not Detect) Ur Phencyclidine Scrn (Not Detect) Ur Amphetamines Screen (Not Detect) U Benzodiazepines Scrn (Not Detect) Urine Cocaine Screen (Not Detect) U Marijuana (THC) Screen (Not Detect) COVID-19 (ENDY) (Negative) COVID-19 Clin Com Independent Interpretation I performed an independent interpretation of an: EKG Interpretation: Vent. Rate: 076 BPM Atrial Rate: 076 BPM P-R Int: 146 ms QRS Dur: 086 ms QT Int: 386 ms P-R-T Axes: 018 018 012 degrees QTc Int: 434 ms Normal sinus rhythm Nonspecific T wave abnormality Abnormal ECG When compared with ECG of 01-NOV-2023 20:06, No significant change was found DD/ 1300 Critical Care Time Critical Care Time Critical Care Time: Yes Total Critical Care Time: 35 Attestation: I spent 35 minutes of Critical Care Time with this patient. This does not include time spent on separately reported billable procedures. Discharge Plan Discharge Clinical Impression: Suicidal ideation, Homicidal ideations Patient Disposition: Home, Self-Care Additional Instructions: Please continue your regular medications. Please follow-up with your regular providers. If you want to speak to somebody confidentially about how you are feeling you can call the crisis hotline at [phone]. Prescriptions: No Action ropinirole 1 mg Tablet 1 mg PO BEDTIME Qty: 30 0RF olanzapine 10 mg Tablet 10 mg PO BEDTIME Qty: 30 0RF clonidine HCl 0.2 mg Tablet 0.2 mg PO BEDTIME Qty: 30 0RF Protocol: Hold for SBP< HOLD for SBP < : 90 albuterol sulfate [Ventolin HFA] 90 mcg/actuation Hfa Aerosol Inhaler 2 puff inhalation Q4H PRN (Reason: shortness of breath or wheezing) Qty: 6.7 0RF tiotropium bromide [Spiriva with HandiHaler] 18 mcg Capsule, W/Inhalation Device 18 mcg inhalation RDAILY Qty: 20 0RF ferrous sulfate 324 mg (65 mg iron) Tablet,Delayed Release (Dr/Ec) 324 mg PO DAILY Qty: 30 0RF omeprazole 20 mg Capsule,Delayed Release(Dr/Ec) 20 mg PO DAILY@0630 Qty: 30 0RF lithium carbonate 450 mg tablet extended release 450 mg PO TID cyanocobalamin (vitamin B-12) [Vitamin B-12] 1,000 mcg tablet 1,000 mcg PO DAILY ipratropium-albuterol 0.5 mg-3 mg(2.5 mg base)/3 mL solution for nebulization 3 ml inhalation RQ6H PRN (Reason: Shortness Of Breath Or Wheezing) gabapentin 400 mg Capsule 400 mg PO TID prednisone 10 mg Tablet See Taper PO DAILY Qty: 15 0RF Taper: Prednisone 40 mg daily for 1 Day and 0 Hour 30 mg daily for 3 Days and 0 Hour 20 mg daily for 3 Days and 0 Hour 10 mg daily for 3 Days and 0 Hour Rx Instructions: 30 MG FOR 3 DAYS 20MG FOR 3 DAYS 10 MG FOR 3 DAYS Interventions: [place]-Suicide Risk Severity Scale Last Done: 11/11/23 01:02 ED Discharge Assessment Last Done: 11/11/23 08:46 Discharge Date/Time: 11/11/23 08:47
--- NOTE | 2023-11-10 12:50 | ECG_ITS ---
Test Reason : hx abnormal ekg crisis Blood Pressure : / mmHG Vent. Rate : 076 BPM Atrial Rate : 076 BPM P-R Int : 146 ms QRS Dur : 086 ms QT Int : 386 ms P-R-T Axes : 018 018 012 degrees QTc Int : 434 ms Normal sinus rhythm Nonspecific T wave abnormality Abnormal ECG When compared with ECG of 01-NOV-2023 20:06, No significant change was found Referred By: Donna Pierre Electronically Signed By:VAIBHAV KILLIAN MD
[2023-11-10 13:13] LABS: MANUAL DIFF FLAG NO
[2023-11-10 13:15] LABS: Basophils Absolute Auto 0.1 X10*3/uL (0.0-0.2); Basophils Percent Auto 0.9 % (0-2); Eosinophils Absolute Auto 0.2 X10*3/uL (0.0-0.4); Eosinophils Percent Auto 2.5 % (0-4); Hematocrit 48.6 % (37.0-47.0); Hemoglobin 15.3 g/dl (12.0-16.0); Imm Gran Abs Auto 0.02 X10*3/uL (0.00-0.03); Imm Gran Pct Auto 0.3 % (0.0-0.4); Lymphocytes Absolute Auto 1.8 X10*3/uL (1.2-4.9); Lymphocytes Percent Auto 23.7 % (20-40); Mean Corpuscular HGB Conc 31.5 g/dl (31.0-35.0); Mean Corpuscular Hemoglobin 30.6 pg (27.0-33.0); Mean Corpuscular Volume 97.2 fL (80.0-98.0); Mean Platelet Volume 9.9 fL (9.4-12.3); Monocytes Absolute Auto 0.5 X10*3/uL (0.1-1.2); Monocytes Percent Auto 6.5 % (2-11); Neutrophils Absolute Auto 5.1 x10*3/uL (2.0-8.3); Neutrophils Percent Auto 66.1 % (45-73); Platelet Count 275 X10*3/uL (160-400); Red Cell Distribution Width 12.3 % (11.0-16.0); White Blood Count 7.7 X10*3/uL (4.8-10.8)
--- NOTE | 2023-11-10 13:26 | PC.NURSE ---
Pt reports si x1 week, states she is having AH, and increase feeling of wanting to OD on medicaitons. Pt ambulates with walker, cooperative with staff. Changed over, labs pending, reports appetite is good. Given a sandwich, diet tray ordered. No behavioral concerns, sitting in room watching tv.
[2023-11-10 13:43] LABS: Amphetamine Screen Urine Not Detected (Not Detect); Barbiturates, Urine Not Detected (Not Detect); Benzodiazepines Screen Urine Not Detected (Not Detect); Cannabinoid Screen Urine Not Detected (Not Detect); Cocaine Screen Urine Not Detected (Not Detect); Fentanyl, urine Not Detected (Not Detect); Opiate Screen Urine Not Detected (Not Detect); Phencyclidine Screen Urine Not Detected (Not Detect)
[2023-11-10 13:44] LABS: Appearance Urine Clear; Color Urine Yellow; Glucose Urine UA Negative (Negative); Leukocyte Esterase Urine Negative (Negative); Nitrite Urine Negative (Negative); PH 7.5 (5.0-9.0); Specific Gravity - Urine 1.015 (1.005-1.025); Urine Blood Negative (Negative); Urine Ketones Negative (Negative); Urine Protein Negative (Neg-Trace)
[2023-11-10 13:49] LABS: Bacteria Urine 2+ (None Seen); Hyaline Casts Urine 0-2 /LPF (0-2); RBC Urine 0-2 /HPF (0-2); WBC Urine 0-5 /HPF (0-5)
[2023-11-10 13:49] LABS: Alanine Aminotransferase 22 U/L (0-31); Albumin Level 4.3 g/dL (3.5-5.0); Alkaline Phosphatase 77 U/L (39-117); Anion Gap 11 (12-20); Aspartate Amino Transferase 19 U/L (5-31); Bilirubin Total 0.2 mg/dL (0.0-1.0); Blood Urea Nitrogen 7 mg/dL (9-16); Calcium 9.9 mg/dL (8.4-10.2); Carbon Dioxide 25 mmol/L (22-29); Chloride 108 mmol/L (96-108); Creatinine Clr Calc Pharmacy 111.7; Estimated Glomerular Filt Rate > 60; Glucose Random 90 mg/dL (60-115); Potassium 4.5 mmol/L (3.3-5.1); Sodium 139 mmol/L (135-145); Total Protein 7.4 g/dL (6.5-8.0)
[2023-11-10 13:54] LABS: COVID-19 Test Negative (Negative); IDNOW Serial# 152EDE1D
--- NOTE | 2023-11-10 16:23 | PC.NURSE ---
Pharmacy messaged to please do med rec.
--- NOTE | 2023-11-10 16:24 | PC.NURSE ---
Jose seen pt. disposition to follow.
[2023-11-10 16:26] VITALS: RESP 18
[2023-11-10] MEDS: Acetaminophen 325 MG TABLET 650 MG PO (16:33)
--- NOTE | 2023-11-10 18:59 | PC.NURSE ---
patient appears to remain at rest at present respirations are even and unlabored patient appears in no distress.
--- NOTE | 2023-11-10 20:39 | PC.NURSE ---
client declined add on lab draw that was ordered, salicylates and acetaminophen
--- NOTE | 2023-11-10 22:41 | MHC.CARE ---
CARE Team assessment complete. Pt will stay in the POD over night and discharge in the AM. No follow-up needed. POD RN, ED provider and Pt are aware.
[2023-11-11] MEDS: Acetaminophen 325 MG TABLET 975 MG PO (03:57)
[2023-11-11 04:27] LABS: Acetaminophen LAB < 3 mcg/mL (<30); Salicylate < 5.0 mg/dL (15-30)
[2023-11-11 07:57] VITALS: BP 137/80; PULSE 85; RESP 17; TEMP 37.2; O2SAT 95
--- NOTE | 2023-11-11 08:44 | PC.NURSE ---
Bhavana BELLA and reports she is ready to go home . Denies SI/HI/AVH. Asked for a LYFT to her boyfriends house at [address] [place] [address]. LYFT provided. Belongings returned.
== END 2023-11-11 08:47 | disposition home or self-care (01) ==
PROVIDERS: Emergency Medicine; Nurse Practitioner Family; Emergency Provider Emergency Medicine; PCP Internal Medicine
DX: R45.851 Suicidal ideations (principal); R45.850 Homicidal ideations; R45.4 Irritability and anger; Z11.52 Encounter for screening for COVID-19; F31.9 Bipolar disorder, unspecified; F43.10 Post-traumatic stress disorder, unspecified; F41.9 Anxiety disorder, unspecified; F14.10 Cocaine abuse, uncomplicated; F60.3 Borderline personality disorder; Z79.899 Other long term (current) drug therapy
CPT/HCPCS: 36415; 80053; 80143; 80179; 80307; 81001; 85025; 87635; 93005; 99285; S9485

== ENCOUNTER → 2023-11-10 12:50 | Outpatient (BNV) | payer MEDICAID, SELFPAY | PROVIDERS: Emergency Provider Emergency Medicine; PCP Internal Medicine; Visit Provider Internal Medicine Cardiovascular Disease | DX: R94.31 Abnormal electrocardiogram [ECG] [EKG] (principal) | CPT/HCPCS: 93010 ==

== ENCOUNTER 2023-11-12 06:15 | Emergency (ER) | payer OTHER, SELFPAY ==
--- NOTE | ~2023-11-12 | XR_ITS ---
EXAMINATION: XR CHEST CLINICAL INFORMATION: Shortness of breath COMPARISON: Chest radiograph from 10/24/2023 TECHNIQUE: Frontal view of the chest was obtained. FINDINGS: Chronic interstitial prominence. Slight bibasilar atelectasis. No pneumothorax. Trachea is midline. Cardiac mediastinal silhouette is not enlarged. No large pleural effusion. Osseous structures are intact. Soft tissues are unremarkable. XR/XR chest 1V IMPRESSION: 1. Chronic interstitial prominence. 2. Slight bibasilar atelectasis.
[2023-11-12 06:31] VITALS: BP 126/88; BP 98/59; PULSE 77; PULSE 86; RESP 20; TEMP 36.8; O2SAT 92; O2SAT 96; BMI 45.0
[2023-11-12 07:36] VITALS: BP 98/59; PULSE 78; RESP 17; TEMP 37; O2SAT 91
--- NOTE | 2023-11-12 07:40 | ECG_ITS ---
Test Reason : SI Blood Pressure : / mmHG Vent. Rate : 078 BPM Atrial Rate : 078 BPM P-R Int : 136 ms QRS Dur : 086 ms QT Int : 424 ms P-R-T Axes : -22 021 014 degrees QTc Int : 483 ms Normal sinus rhythm Prolonged QT Abnormal ECG When compared with ECG of 10-NOV-2023 13:00, No significant change was found Referred By: Kamla Marroquin Electronically Signed By:VAIBHAV KILLIAN MD
--- NOTE | 2023-11-12 07:53 | PC.NURSE ---
Assumed care of this pt at 0700. per report from off going RN, pt called ambulance to be taken to er for eval of SI with plan to take all of her prescriptive meds. pt admits SI at this time and denies HI. pt compliant with exchange administrator. 1:1 staff at bedside.
[2023-11-12 08:37] LABS: MANUAL DIFF FLAG NO
[2023-11-12 08:39] LABS: Basophils Absolute Auto 0.1 X10*3/uL (0.0-0.2); Basophils Percent Auto 0.6 % (0-2); Eosinophils Absolute Auto 0.1 X10*3/uL (0.0-0.4); Eosinophils Percent Auto 1.7 % (0-4); Hematocrit 44.8 % (37.0-47.0); Hemoglobin 14.3 g/dl (12.0-16.0); Imm Gran Abs Auto 0.02 X10*3/uL (0.00-0.03); Imm Gran Pct Auto 0.2 % (0.0-0.4); Lymphocytes Percent Auto 24.5 % (20-40); Mean Corpuscular HGB Conc 31.9 g/dl (31.0-35.0); Mean Corpuscular Hemoglobin 31.4 pg (27.0-33.0); Mean Corpuscular Volume 98.2 fL (80.0-98.0); Mean Platelet Volume 9.9 fL (9.4-12.3); Monocytes Absolute Auto 0.5 X10*3/uL (0.1-1.2); Monocytes Percent Auto 6.4 % (2-11); Neutrophils Absolute Auto 5.3 x10*3/uL (2.0-8.3); Neutrophils Percent Auto 66.6 % (45-73); Platelet Count 228 X10*3/uL (160-400); Red Blood Count 4.56 X10*6/uL (4.20-5.50); Red Cell Distribution Width 12.9 % (11.0-16.0)
[2023-11-12 08:40] LABS: Appearance Urine Cloudy; Color Urine Dark Yellow; Glucose Urine UA Negative (Negative); Leukocyte Esterase Urine Trace (Negative); Nitrite Urine Negative (Negative); PH 5.5 (5.0-9.0); UMIC TRIGGER UACC YES; Urine Blood Negative (Negative); Urine Ketones Trace mg/dL (Negative); Urine Protein Trace mg/dL (Neg-Trace)
[2023-11-12 08:44] LABS: Bacteria Urine 4+ (None Seen); Hyaline Casts Urine 0-2 /LPF (0-2); RBC Urine 0-2 /HPF (0-2); Squamous Epithelial Cell Urine >20 /HPF (0-2); UACC Culture Trigger YES
[2023-11-12 08:50] LABS: Amphetamine Screen Urine Not Detected (Not Detect); Barbiturates, Urine Not Detected (Not Detect); Benzodiazepines Screen Urine Not Detected (Not Detect); Cannabinoid Screen Urine Not Detected (Not Detect); Cocaine Screen Urine POSITIVE (Not Detect); Fentanyl, urine Not Detected (Not Detect); Opiate Screen Urine Not Detected (Not Detect); Phencyclidine Screen Urine Not Detected (Not Detect)
[2023-11-12 08:55] LABS: Alanine Aminotransferase 23 U/L (0-31); Alkaline Phosphatase 72 U/L (39-117); Anion Gap 13 (12-20); Aspartate Amino Transferase 39 U/L (5-31); Bilirubin Total 0.4 mg/dL (0.0-1.0); Blood Urea Nitrogen 8 mg/dL (9-16); Calcium 9.6 mg/dL (8.4-10.2); Carbon Dioxide 28 mmol/L (22-29); Chloride 102 mmol/L (96-108); Creatinine Clr Calc Pharmacy 106.8; Estimated Glomerular Filt Rate > 60; Glucose Random 112 mg/dL (60-115); Magnesium 2.1 mg/dL (1.6-2.6); Potassium 4.3 mmol/L (3.3-5.1); Sodium 139 mmol/L (135-145); Total Protein 6.5 g/dL (6.5-8.0)
[2023-11-12 09:14] LABS: Acetaminophen LAB < 3 mcg/mL (<30); Ethanol < 10 mg/dL; Salicylate < 5.0 mg/dL (15-30)
--- NOTE | 2023-11-12 09:19 | ED.GENADULT ---
HPI - General Adult General Chief complaint: Psychiatric Symptoms Stated complaint: SI Time Seen by Provider: 11/12/23 06:45 Source: patient Mode of arrival: ambulatory Limitations: no limitations History of Present Illness HPI narrative: 53-year-old female asthma, COPD, bipolar disorder, borderline personality disorder, , depression, drug use, herpes, mass of the parotid gland, previous suicide attempts, pseudoseizures presenting to the emergency department with complaints of suicidal ideation, depression worsening over the past few days worsening. Reports she is suicidal and wants to slit her wrist with steak knife. Denies visual and auditory hallucinations. Reports crack cocaine use earlier. No HI. No medical complaints. Related Data Home Medications Medication Instructions Recorded Confirmed lithium carbonate 450 mg 450 mg PO TID 05/14/23 11/01/23 tablet,extended release cyanocobalamin (vitamin B-12) 1,000 mcg PO DAILY 06/11/23 11/01/23 1,000 mcg tablet (Vitamin B-12) ipratropium 0.5 mg-albuterol 3 mg 3 ml inhalation RQ6H PRN Shortness 06/11/23 11/01/23 (2.5 mg base)/3 mL nebulization Of Breath Or Wheezing soln gabapentin 400 mg capsule 400 mg PO TID 10/24/23 11/01/23 Previous Rx's Medication Instructions Recorded albuterol sulfate 90 mcg/actuation 2 puff inhalation Q4H PRN 03/22/23 aerosol inhaler (Ventolin HFA) shortness of breath or wheezing #6.7 grams clonidine HCl 0.2 mg tablet 0.2 mg PO BEDTIME #30 tabs 03/22/23 ferrous sulfate 324 mg (65 mg 324 mg PO DAILY #30 tabs 03/22/23 iron) tablet,delayed release olanzapine 10 mg tablet 10 mg PO BEDTIME #30 tabs 03/22/23 omeprazole 20 mg capsule,delayed 20 mg PO DAILY@0630 #30 caps 03/22/23 release ropinirole 1 mg tablet 1 mg PO BEDTIME #30 tabs 03/22/23 tiotropium bromide 18 mcg capsule 18 mcg inhalation RDAILY #20 03/22/23 with inhalation device (Spiriva inhalations with HandiHaler) prednisone 10 mg tablet See Taper PO DAILY #15 tabs 10/25/23 nitrofurantoin 100 mg PO BID 5 days #10 caps 11/12/23 monohydrate/macrocrystals 100 mg capsule (Macrobid) Allergies Allergy/AdvReac Type Severity Reaction Status Date / Time aspirin Allergy Mild Anaphylaxis Verified 11/12/23 06:31 ampicillin Allergy Rash Verified 11/12/23 06:31 Penicillins Allergy Anaphylaxis Verified 11/12/23 06:31 latex AdvReac Rash Verified 11/12/23 06:31 Latex, Natural Rubber AdvReac Rash Verified 11/12/23 06:31 seafood AdvReac Anaphylaxis Verified 11/12/23 06:31 Sulfa (Sulfonamide AdvReac Hives Verified 11/12/23 06:31 Antibiotics) Review of Systems Review of Systems: Constitutional : No Weight loss, No Fever, No Chills, No Fatigue, No Malaise ENT/Mouth : No sore throat, No Rhinorrhea Eyes: No Eye Pain, No Swelling, No Redness Cardiovascular : No Chest Pain, No SOB, No Dyspnea on Exertion, No Orthopnea, No Edema, No Palpitations Respiratory : No Cough, No Sputum, No Wheezing Gastrointestinal : No Nausea, No Vomiting, No Diarrhea, No Constipation, No abdominal Pain, No Hematochezia, No Melena Genitourinary : No Dysuria, + Urinary Frequency, No Hematuria, Musculoskeletal : No joint pain, No Myalgias, No Joint Swelling Skin : No Skin Lesions, No rash Neuro : No Weakness, No Numbness, No Dizziness, No Headache Psych : + Anxiety/Panic, + Depression, + SI All other systems reviewed and are negative Yes all other systems are reviewed and are negative PMFSH Past Medical History Attestation statement: The following information was validated with the patient. Source: old records reviewed and nursing notes reviewed Onset Date is defined in the Problem List Problems that require an onset date and time if occurred within 24 hrs of arrival to the ED Aortic Dissection and Rupture; Neurologic impairment; Cardiopulmonary Arrest; Endotracheal Intubation; Insertion or Replacement of Mechanical Circulatory Assist Device Medical History Overdose on Tylenol Suicide attempt Asthma COPD (chronic obstructive pulmonary disease) Chronic lung disease Neoplasm of parotid gland Depression 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 Drug abuse Bipolar I disorder Post traumatic stress disorder (PTSD) Tobacco use disorder FABIOLA (obstructive sleep apnea) Borderline personality disorder Intermittent explosive disorder Asthma exacerbation in COPD Herpes Tobacco use Bipolar disorder COPD (chronic obstructive pulmonary disease) Surgical History History of ankle surgery History of back surgery Hx of cholecystectomy History of appendectomy Family History Family History Mother COPD (chronic obstructive pulmonary disease) Social History Social History Household Members: None Household Members Other:: [place] in [place] Housing: Apartment Housing Other:: Sleeps on the couch at [facility] house Do you presently have visiting nurse or other home services: Yes (medication and OVEN OPERATOR awaiting) Unable to assess alcohol history related to: Unknown Alcohol intake: current Alcohol intake frequency: holidays/special occasions only Alcohol type: hard liquor Comment: pt has sitter in room Patient Tobacco Use Status: Current everyday Tobacco user Tobacco use type: Cigarette Cigarette Packs Per Day: 1 Cigarettes Per Day: 8 Years Smoked: 40 Smoked in Last 30 Days: Yes e-Cigarette/Vaping Use: Never Used Second Hand Smoke Exposure: No Substance Use Type: Crack/Cocaine Advance Directives: Yes Advance Directives on File: Yes Advance Directives Date on File: 06/17/22 service: No Current occupational status: unemployed and disabled Sexual orientation: Straight/Heterosexual Physical Exam ED Vital Signs: Vital Signs - 24 hr 11/12/23 06:31 11/12/23 07:36 11/12/23 11:06 Temperature 98.3 F 98.6 F Pulse Rate 77 78 74 Respiratory Rate 20 17 18 Blood Pressure 98/59 L 98/59 L 102/52 L Pulse Oximetry 92 91 L 95 Oxygen Delivery Method Room Air Room Air Room Air 11/12/23 12:27 11/12/23 14:14 Temperature Pulse Rate 88 Respiratory Rate 14 19 Blood Pressure Pulse Oximetry 96 Oxygen Delivery Method Room Air BMI result Body Mass Index 45.0 vss Appearance: Alert.? Oriented X3.? No acute distress.? Head: Normocephalic, atraumatic, no step-offs or deformities Eyes: Pupils equal, round and reactive to light.? CVS: Normal heart rate and rhythm.? Pulses normal.? Respiratory: No respiratory distress.? Breath sounds normal.? Abdomen: Soft and nontender.? Skin: Skin warm and dry.? Normal skin color.? Normal skin turgor.? Extremities: No lower extremity edema.? No calf ttp. 5/5 strength to bilateral upper and lower extremities Neuro: Oriented X 3.? No motor deficit.? No sensory deficit. CN 2-12 intact Course Reevaluation(s) Reevaluation #1: CBC unremarkable. Chemistry no acute findings requiring intervention. UA does seem to be contaminated with 4+ bacteria however and patient is symptomatic therefore will treat for UTI with Macrobid. Salicylates, acetaminophen ethanol negative. Patient tested positive for cocaine she does endorse she has been using crack lately, she last use yesterday night. Patient's blood pressure soft while in department however has been soft on previous visits. This is likely around patient's baseline. Patient's saturating 95% on room air uncomfortable history of COPD, I do not suspect acute exacerbation. At this time patient to be placed into observation to be evaluated by behavioral health team. At time observation was started patient magi cooperative no acute distress will continue to monitor Time: 11:57 Reevaluation #2: Patient was evaluated by care team reports she was only feeling suicidal due to crack cocaine, not feeling suicidal anymore. Feeling better. Will treat for UTI. Denies SI and HI. At this time patient is safe for discharge home. Educated patient on diagnosis and treatment plan, answered all question, patient verbalizes understanding. At this time patient will be discharged home, advised to return with new or worsening symptoms. Educated on worrisome signs and symptoms and when to return. At this time I feel comfortable discharge home. Medications Administered Discontinued Medications Generic Name Dose Route Start Last Admin Trade Name Jacob PRN Reason Stop Dose Admin Loperamide HCl 2 mg 11/12/23 09:03 11/12/23 09:36 Loperamide Hcl 2 Mg Capsule PO 11/12/23 09:04 2 mg ONCE ONE Administration Medical Decision Making Medical Decision Making [facility] Narrative: 53-year-old female presenting for evaluation of suicidal ideation also having urinary frequency Physical exam benign. History and physical exam concerning for suicidal ideation will rule out urinary tract infection. No signs of sepsis. Will rule out metabolic derangements . Other differentials include bipolar disorder, PTSD, severe depression, borderline personality disorder. Plan medical clearance evaluation by behavioral health team Differential Diagnosis Differential Diagnoses: The differential diagnosis associated with the presentation includes History and physical exam concerning for suicidal ideation will rule out urinary tract infection. No signs of sepsis. Will rule out metabolic derangements . Other differentials include bipolar disorder, PTSD, severe depression, borderline personality disorder. Admission/Observation Consideration of admission/observation: Escalation of care including admission/observation considered possible psych Lab Data MDM Lab Attestation statement: I reviewed the patient's lab results. 11/12/23 08:29 11/12/23 08:29 Labs: Lab Results 11/12/23 11/12/23 Range/Units 08:29 08:30 WBC 8.0 (4.8-10.8) X10*3/uL RBC 4.56 (4.20-5.50) X10*6/uL Hgb 14.3 (12.0-16.0) g/dl Hct 44.8 (37.0-47.0) % MCV 98.2 H (80.0-98.0) fL MCH 31.4 (27.0-33.0) pg MCHC 31.9 (31.0-35.0) g/dl RDW 12.9 (11.0-16.0) % Plt Count 228 (160-400) X10*3/uL MPV 9.9 (9.4-12.3) fL Immature Gran % (Auto) 0.2 (0.0-0.4) % Neut % (Auto) 66.6 (45-73) % Lymph % (Auto) 24.5 (20-40) % [place] % (Auto) 6.4 (2-11) % Eos % (Auto) 1.7 (0-4) % Baso % (Auto) 0.6 (0-2) % Lymph # (Auto) 2.0 (1.2-4.9) X10*3/uL [place] # (Auto) 0.5 (0.1-1.2) X10*3/uL Eos # (Auto) 0.1 (0.0-0.4) X10*3/uL Baso # (Auto) 0.1 (0.0-0.2) X10*3/uL Abs Immat Gran (auto) 0.02 (0.00-0.03) X10*3/uL Absolute Neuts (auto) 5.3 (2.0-8.3) x10*3/uL Absolute Nucleated RBC 0.000 (0.0-0.012) X10*3/uL Nucleated RBC % (auto) 0.0 (0.0-0.2) /100WBC Sodium 139 (135-145) mmol/L Potassium 4.3 (3.3-5.1) mmol/L Chloride 102 (96-108) mmol/L Carbon Dioxide 28 (22-29) mmol/L Anion Gap 13 (12-20) BUN 8 L (9-16) mg/dL Creatinine 0.81 (0.5-1.4) mg/dL Estim Creat Clear Calc 106.8 Estimated GFR > 60 Random Glucose 112 (60-115) mg/dL Calcium 9.6 (8.4-10.2) mg/dL Magnesium 2.1 (1.6-2.6) mg/dL Total Bilirubin 0.4 (0.0-1.0) mg/dL AST 39 H (5-31) U/L ALT 23 (0-31) U/L Alkaline Phosphatase 72 (39-117) U/L Total Protein 6.5 (6.5-8.0) g/dL Albumin 4.0 (3.5-5.0) g/dL Urine Color Dark Yellow Urine Appearance Cloudy Urine pH 5.5 (5.0-9.0) Ur Specific [place] 1.020 (1.005-1.025) Urine Protein Trace (Neg-Trace) mg/dL Urine Glucose (UA) Negative (Negative) mg/dL Urine Ketones Trace (Negative) mg/dL Urine Blood Negative (Negative) Urine Nitrite Negative (Negative) Ur Leukocyte Esterase Trace H (Negative) Urine RBC 0-2 (0-2) /HPF Urine WBC 6-10 H (0-5) /HPF Ur Squamous Epith Cells >20 (0-2) /HPF Urine Bacteria 4+ (None Seen) Hyaline Casts 0-2 (0-2) /LPF Salicylates < 5.0 L (15-30) mg/dL Urine Opiates Screen Not Detected (Not Detect) Urine Fentanyl Screen Not Detected (Not Detect) Acetaminophen < 3 (<30) mcg/mL Ur Barbiturates Screen Not Detected (Not Detect) Ur Phencyclidine Scrn Not Detected (Not Detect) Ur Amphetamines Screen Not Detected (Not Detect) U Benzodiazepines Scrn Not Detected (Not Detect) Urine Cocaine Screen POSITIVE H (Not Detect) U Marijuana (THC) Screen Not Detected (Not Detect) Ethyl Alcohol < 10 mg/dL Independent Interpretation I performed an independent interpretation of an: Plain X-Ray Radiology Impression Discussion of test interpretation with radiology: I have reviewed the radiologist's reading. Prescription Management I considered prescription management with: Antibiotic Chronic Conditions Patient?s care impacted by: Other (multiple psych complaints ,copd ) Critical Care Time Critical Care Time Critical Care Time: No Discharge Plan Discharge Clinical Impression: UTI (urinary tract infection), Bipolar I disorder with depression Patient Disposition: Home, Self-Care Instructions: Urinary Tract Infection in Women (ED), Bipolar Disorder (DC) Additional Instructions: Take your medications as prescribed. If you were prescribed antibiotics today, it is important that you take your medication to their entirety, do not skip any doses, do not finish them early. Follow-up with your primary care provider this week. Return to the emergency department with new or worsening symptoms. Such as fevers, chills, chest pain, shortness of breath, nausea, vomiting, dizziness, headache, vision changes, lethargy In case of emergency call 911 Prescriptions: New nitrofurantoin monohyd/m-cryst [Macrobid] 100 mg capsule 100 mg PO BID 5 Days Qty: 10 0RF Rx Instructions: must administer with a meal/food No Action ropinirole 1 mg Tablet 1 mg PO BEDTIME Qty: 30 0RF olanzapine 10 mg Tablet 10 mg PO BEDTIME Qty: 30 0RF clonidine HCl 0.2 mg Tablet 0.2 mg PO BEDTIME Qty: 30 0RF Protocol: Hold for SBP< HOLD for SBP < : 90 albuterol sulfate [Ventolin HFA] 90 mcg/actuation Hfa Aerosol Inhaler 2 puff inhalation Q4H PRN (Reason: shortness of breath or wheezing) Qty: 6.7 0RF tiotropium bromide [Spiriva with HandiHaler] 18 mcg Capsule, W/Inhalation Device 18 mcg inhalation RDAILY Qty: 20 0RF ferrous sulfate 324 mg (65 mg iron) Tablet,Delayed Release (Dr/Ec) 324 mg PO DAILY Qty: 30 0RF omeprazole 20 mg Capsule,Delayed Release(Dr/Ec) 20 mg PO DAILY@0630 Qty: 30 0RF lithium carbonate 450 mg tablet extended release 450 mg PO TID cyanocobalamin (vitamin B-12) [Vitamin B-12] 1,000 mcg tablet 1,000 mcg PO DAILY ipratropium-albuterol 0.5 mg-3 mg(2.5 mg base)/3 mL solution for nebulization 3 ml inhalation RQ6H PRN (Reason: Shortness Of Breath Or Wheezing) gabapentin 400 mg Capsule 400 mg PO TID prednisone 10 mg Tablet See Taper PO DAILY Qty: 15 0RF Taper: Prednisone 40 mg daily for 1 Day and 0 Hour 30 mg daily for 3 Days and 0 Hour 20 mg daily for 3 Days and 0 Hour 10 mg daily for 3 Days and 0 Hour Rx Instructions: 30 MG FOR 3 DAYS 20MG FOR 3 DAYS 10 MG FOR 3 DAYS Referrals: Physician,Unknown J [Primary Care Provider] - 2 days Stand Alone Forms: Work/School Release Interventions: [place]-Suicide Risk Severity Scale Last Done: 11/12/23 14:14
[2023-11-12] MEDS: Loperamide HCl 2 MG CAPSULE PO (09:36)
--- NOTE | 2023-11-12 09:37 | PC.NURSE ---
pt's belongings secured in [facility]OD [facility]OSET. med given as documented.
[2023-11-12 11:06] VITALS: BP 102/52; PULSE 74; RESP 18; O2SAT 95
--- NOTE | 2023-11-12 11:30 | PC.NURSE ---
pt was assisted to bedside commode. vss. 1:1 staff remains at bedside.
[2023-11-12 12:27] VITALS: PULSE 88; RESP 14; O2SAT 96
--- NOTE | 2023-11-12 12:27 | PC.NURSE ---
Assumed care of patient at 1215. Pt is resting comfortably on bed, offers no complaints to this RN. Pt endorses SI without plan at this time. Denies HI, or hallucinations. Pt ambulates with walker for fibromyalgia
--- NOTE | 2023-11-12 12:29 | PC.NURSE ---
report given to POD MELONY Redd. pt was transported to [facility] via w/c. pt's personal walker was brought over with her.
[2023-11-12 14:14] VITALS: RESP 19
--- NOTE | 2023-11-14 10:16 | MHC.CARE ---
Rad Team made a referral for a manager recovery. Email sent to Franklyn Palmer from [facility].
== END 2023-11-12 17:08 | disposition home or self-care (01) ==
PROVIDERS: Physician Assistant; Emergency Provider Emergency Medicine
DX: R45.851 Suicidal ideations (principal); F31.9 Bipolar disorder, unspecified; F14.10 Cocaine abuse, uncomplicated; N39.0 Urinary tract infection, site not specified; F60.3 Borderline personality disorder; F43.10 Post-traumatic stress disorder, unspecified; F17.210 Nicotine dependence, cigarettes, uncomplicated; Z91.51 Personal history of suicidal behavior; Z79.899 Other long term (current) drug therapy
CPT/HCPCS: 36415; 71045; 80053; 80143; 80179; 80307; 81001; 83735; 85025; 87086; 93005; 99285; S9485

== ENCOUNTER → 2023-11-12 07:40 | Outpatient (BNV) | payer MEDICAID, SELFPAY | PROVIDERS: Emergency Provider Emergency Medicine; Visit Provider Internal Medicine Cardiovascular Disease | DX: I45.81 Long QT syndrome (principal) | CPT/HCPCS: 93010 ==

== ENCOUNTER 2023-11-17 13:50 | Inpatient (IN) | payer MEDICAID, SELFPAY ==
[2023-11-17] VITALS (12 sets, daily range): BP systolic 99–168; BP diastolic 60–94; PULSE 75–102; RESP 16–24; TEMP 36.6–37.1; O2SAT 89–97; BMI 30.7
--- NOTE | ~2023-11-17 | CT_ITS ---
EXAMINATION: CT HEAD WITHOUT CONTRAST CLINICAL INFORMATION: Syncope COMPARISON: Neck CT images from 07/19/2022. Head CT from 11/18/2020 and 07/12/2022. TECHNIQUE: Contiguous axial imaging was performed from the skull base to vertex without intravenous administration of contrast. This CT examination was performed using dose optimization techniques as appropriate, variously including the following: *Automated exposure control *Adjustment of mA and/or kV according to patient size (this includes techniques or standardized protocols for targeted exams where dose is matched to indication/reason for exam; i.e. extremities or head) *Use of iterative reconstruction technique DLP: 676 mGy-cm FINDINGS: The brain parenchyma has normal attenuation. The barker-white matter differentiation is well preserved. No evidence of an acute major vascular territory infarction. No intracranial hemorrhage, extra-axial fluid collection, focal mass effect or midline shift. The ventricles have normal size and configuration; no hydrocephalus. The brainstem and cerebellum have a normal appearance. The cerebellar tonsils are in normal position. The calvarium is intact. The visualized paranasal sinuses, mastoid air cells and middle ear cavities are well aerated. The orbits and globes are unremarkable. The temporomandibular joints are normal. CT/CT head/brain wo IV con IMPRESSION: No acute intracranial pathology.
--- NOTE | ~2023-11-17 | XR_ITS ---
EXAMINATION: XR FOOT, RIGHT CLINICAL INFORMATION: Syncope with fall and right foot pain COMPARISON: None available. TECHNIQUE: AP, lateral, and oblique views of the right foot. FINDINGS: The bones and soft tissues are normal. No fracture. Alignment is anatomic. Joint spaces are maintained. XR/XR foot RT 2V IMPRESSION: Normal right foot.
--- NOTE | ~2023-11-17 | XR_ITS ---
EXAMINATION: XR CHEST CLINICAL INFORMATION: Syncope COMPARISON: 11/12/2023 TECHNIQUE: Frontal view of the chest was obtained. FINDINGS: No significant abnormality is noted involving the heart, lungs, mediastinum, bony thorax or soft tissues. XR/XR chest 1V IMPRESSION: Unremarkable examination.
--- NOTE | 2023-11-17 14:12 | ECG_ITS ---
Test Reason : dizziness Blood Pressure : / mmHG Vent. Rate : 076 BPM Atrial Rate : 076 BPM P-R Int : 144 ms QRS Dur : 088 ms QT Int : 394 ms P-R-T Axes : -21 036 025 degrees QTc Int : 443 ms Normal sinus rhythm Normal ECG When compared with ECG of 12-NOV-2023 08:21, No significant change was found Referred By: Kan Menezes Electronically Signed By:ALEJANDRO MCCLELLAN
--- NOTE | 2023-11-17 14:16 | ED.SYNCOPE ---
HPI - Syncope General Chief Complaint: Dizziness Stated Complaint: DIZZY, LIGHTHEADED FOR DAYS Time Seen by Provider: 11/17/23 14:02 Source: patient and EMS Mode of arrival: EMS Limitations: no limitations History of Present Illness HPI narrative: 53-year-old female with with a history of frequent ED visits usually for COPD exacerbation, substance abuse, or mental health issue. Presented by EMS today for evaluation of feeling lightheadedness with dizziness, patient reported that she fully passed out yesterday and today causing fall and right foot injury. Patient has a chronic cough due to COPD and smoking with increased coughing and wheezing over the past 2 days. Patient declined headache, chest pain, fever, chills, lower extremity swelling or tenderness. Related Data Home Medications Medication Instructions Recorded Confirmed lithium carbonate 450 mg 450 mg PO TID 05/14/23 11/01/23 tablet,extended release cyanocobalamin (vitamin B-12) 1,000 mcg PO DAILY 06/11/23 11/01/23 1,000 mcg tablet (Vitamin B-12) ipratropium 0.5 mg-albuterol 3 mg 3 ml inhalation RQ6H PRN Shortness 06/11/23 11/01/23 (2.5 mg base)/3 mL nebulization Of Breath Or Wheezing soln gabapentin 400 mg capsule 400 mg PO TID 10/24/23 11/01/23 Previous Rx's Medication Instructions Recorded albuterol sulfate 90 mcg/actuation 2 puff inhalation Q4H PRN 03/22/23 aerosol inhaler (Ventolin HFA) shortness of breath or wheezing #6.7 grams clonidine HCl 0.2 mg tablet 0.2 mg PO BEDTIME #30 tabs 03/22/23 ferrous sulfate 324 mg (65 mg 324 mg PO DAILY #30 tabs 03/22/23 iron) tablet,delayed release olanzapine 10 mg tablet 10 mg PO BEDTIME #30 tabs 03/22/23 omeprazole 20 mg capsule,delayed 20 mg PO DAILY@0630 #30 caps 03/22/23 release ropinirole 1 mg tablet 1 mg PO BEDTIME #30 tabs 03/22/23 tiotropium bromide 18 mcg capsule 18 mcg inhalation RDAILY #20 03/22/23 with inhalation device (Spiriva inhalations with HandiHaler) prednisone 10 mg tablet See Taper PO DAILY #15 tabs 10/25/23 nitrofurantoin 100 mg PO BID 5 days #10 caps 11/12/23 monohydrate/macrocrystals 100 mg capsule (Macrobid) Allergies Allergy/AdvReac Type Severity Reaction Status Date / Time aspirin Allergy Mild Anaphylaxis Verified 11/12/23 06:31 ampicillin Allergy Rash Verified 11/12/23 06:31 Penicillins Allergy Anaphylaxis Verified 11/12/23 06:31 latex AdvReac Rash Verified 11/12/23 06:31 Latex, Natural Rubber AdvReac Rash Verified 11/12/23 06:31 seafood AdvReac Anaphylaxis Verified 11/12/23 06:31 Sulfa (Sulfonamide AdvReac Hives Verified 11/12/23 06:31 Antibiotics) Review of Systems Review of Systems: All other systems are reviewed and are negative Constitutional: Reports as per HPI and Reports no additional constitutional complaints Eyes: Reports as per HPI and Reports no additional eye complaints Reports system reviewed and no additional complaints, except as documented Cardiovascular: Reports as per HPI and Reports no additional cardiovascular complaints Respiratory: Reports as per HPI and Reports no additional respiratory complaints Gastrointestinal: Reports as per HPI and Reports no additional gastrointestinal complaints Genitourinary: Reports no additional female genitourinary complaints Musculoskeletal: Reports no additional musculoskeletal complaints Skin/Breast: Reports system reviewed and no additional complaints, except as docu Psychiatric: Reports no additional psychiatric complaints Endocrine: Reports no additional endocrine complaints Hematologic/Lymphatic: Reports no additional hematologic/lymphatic complaints Allergic/Immunologic: Reports no additional allergic/immunologic complaints Reports system reviewed and no additional complaints, except as documented and Reports Abnormal speech present PMFSH Past Medical History Onset Date is defined in the Problem List Problems that require an onset date and time if occurred within 24 hrs of arrival to the ED Aortic Dissection and Rupture; Neurologic impairment; Cardiopulmonary Arrest; Endotracheal Intubation; Insertion or Replacement of Mechanical Circulatory Assist Device Medical History Overdose on Tylenol Suicide attempt Asthma COPD (chronic obstructive pulmonary disease) Chronic lung disease Neoplasm of parotid gland Depression 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 Drug abuse Bipolar I disorder Post traumatic stress disorder (PTSD) Tobacco use disorder FABIOLA (obstructive sleep apnea) Borderline personality disorder Intermittent explosive disorder Asthma exacerbation in COPD Herpes Tobacco use Bipolar disorder COPD (chronic obstructive pulmonary disease) Surgical History History of ankle surgery History of back surgery Hx of cholecystectomy History of appendectomy Family History Family History Mother COPD (chronic obstructive pulmonary disease) Social History Social History Household Members: None Household Members Other:: [facility] [place] Housing: Apartment Housing Other:: Sleeps on the couch at [facility] house Do you presently have visiting nurse or other home services: Yes (medication and DENTAL TREATMENT COORDINATOR awaiting) Unable to assess alcohol history related to: Unknown Alcohol intake: current Alcohol intake frequency: holidays/special occasions only Alcohol type: hard liquor Comment: pt has sitter in room Patient Tobacco Use Status: Current everyday Tobacco user Tobacco use type: Cigarette Cigarette Packs Per Day: 1 Cigarettes Per Day: 8 Years Smoked: 40 e-Cigarette/Vaping Use: Never Used Second Hand Smoke Exposure: No Substance Use Type: Crack/Cocaine Advance Directives: Yes Advance Directives on File: Yes Advance Directives Date on File: 06/17/22 service: No Current occupational status: unemployed and disabled Sexual orientation: Straight/Heterosexual Physical Exam Vital Signs: Vital Signs: Last Vital Signs Temp 98.4 F 11/17/23 15:51 Pulse 89 11/17/23 15:51 Resp 20 11/17/23 15:51 BP 126/71 11/17/23 15:51 Pulse Ox 96 11/17/23 15:51 O2 Del Method Room Air 11/17/23 15:51 BMI result Body Mass Index 30.7 Vital signs have been reviewed and appear to be correct. Blood pressure elevated. Heart rate normal. Respiratory rate normal. Temperature normal. Oxygen saturation normal. Appearance: Alert. Oriented X3. No acute distress. Head: Normal external exam. Normocephalic. Atraumatic. No Garrett signs noted. No raccoon eyes noted Eyes: PERRLA. EOMI. Conjunctiva and sclera normal. Eyelids normal. ENT: TM's Normal. Pharynx normal. Uvula midline. Moist mucous membranes. No trismus noted. No drooling noted. No muffled voice noted. Neck: Normal inspection. Neck supple. FROM. No adenopathy. Thyroid Normal. No meningeal signs. No neck mass noted. CVS: Normal heart rate and rhythm. Heart sound normal. No murmurs noted. Pulses normal throughout. Respiratory: No respiratory distress. Painless inspiration. Breath sounds normal. Expiratory wheezing, prolonged expiration. Chest nontender. No accessory muscle usage noted or decreased air movement noted. Abdomen: Soft and nontender. Bowel sounds normal in all 4 quadrants. No distention noted. No organomegaly noted. No visible injury noted. Back: No CVA tenderness. Full range of motion noted. Skin: Skin warm and dry. Normal skin color. Normal skin turgor. No rashes/lesions/lacerations noted. Extremities: Right foot: Less than 1 cm cut at the tip of right 2nd toe. No deformity, no step-off, neurovascularly intact. Neuro: Oriented X 3. Cranial nerve exam: II-XII are grossly intact No motor deficit. No sensory deficit. Reflexes normal. Course Reevaluation(s) Reevaluation #1: 53-year-old female came in for evaluation after 2 syncopal episode at home since yesterday, no chest pain, unremarkable workup in the emergency department. Patient found to be hypoxic initially 89% and wheezing, improved with bronchodilator satting 96% on room air. Will admit for monitoring after syncope. Time: 16:44 Medications Administered Discontinued Medications Generic Name Dose Route Start Last Admin Trade Name Freq PRN Reason Stop Dose Admin Albuterol Sulfate 5 mg/ 0 mg 11/17/23 14:33 11/17/23 14:35 Albuterol/Ipratropium 3 ml INHALE 11/17/23 14:34 1 each ONCE ONE Administration Methylprednisolone Sodium Succinate 125 mg 11/17/23 14:14 11/17/23 15:11 Methylprednisolone Sod Succ 125 Mg/2 Ml Vial IVPUSH 11/17/23 14:15 125 mg ONCE ONE Administration Medical Decision Making Differential Diagnosis Differential Diagnoses: The differential diagnosis associated with the presentation includes (ACS, arrhythmia, COPD exacerbation, pneumonia, pneumothorax, severe anemia, electrolyte abnormality, right foot fracture.) Admission/Observation Consideration of admission/observation: Escalation of care including admission/observation considered Consult Healthcare Provider Management of the patient was discussed with: Hospitalist () Lab Data MDM Lab Attestation statement: I reviewed the patient's lab results. 11/17/23 15:06 11/17/23 15:06 Labs: Lab Results 11/17/23 11/17/23 11/17/23 Range/Units 15:06 15:06 15:06 WBC 8.3 (4.8-10.8) X10*3/uL RBC 5.10 (4.20-5.50) X10*6/uL Hgb 15.7 (12.0-16.0) g/dl Hct 48.9 H (37.0-47.0) % MCV 95.9 (80.0-98.0) fL MCH 30.8 (27.0-33.0) pg MCHC 32.1 (31.0-35.0) g/dl RDW 12.6 (11.0-16.0) % Plt Count 273 (160-400) X10*3/uL MPV 9.8 (9.4-12.3) fL Immature Gran % (Auto) 0.2 (0.0-0.4) % Neut % (Auto) 61.6 (45-73) % Lymph % (Auto) 29.9 (20-40) % [place] % (Auto) 4.4 (2-11) % Eos % (Auto) 3.1 (0-4) % Baso % (Auto) 0.8 (0-2) % Lymph # (Auto) 2.5 (1.2-4.9) X10*3/uL [place] # (Auto) 0.4 (0.1-1.2) X10*3/uL Eos # (Auto) 0.3 (0.0-0.4) X10*3/uL Baso # (Auto) 0.1 (0.0-0.2) X10*3/uL Abs Immat Gran (auto) 0.02 (0.00-0.03) X10*3/uL Absolute Neuts (auto) 5.1 (2.0-8.3) x10*3/uL Absolute Nucleated RBC 0.000 (0.0-0.012) X10*3/uL Nucleated RBC % (auto) 0.0 (0.0-0.2) /100WBC D-Dimer High Sensitivty 261 NG/ML Sodium Cancelled 140 Potassium Cancelled 4.5 Chloride Cancelled Carbon Dioxide Anion Gap BUN Creatinine Estim Creat Clear Calc Estimated GFR Random Glucose Calcium Total Bilirubin Direct Bilirubin AST ALT Alkaline Phosphatase Troponin I High Sens (<3.5-17.0) ng/L B-Natriuretic Peptide (<100) pg/mL Total Protein Albumin Lipase Influenza Type A (PCR) (Negative) Influenza Type B (PCR) (Negative) RSV RNA Qual (PCR) (Negative) SARS-CoV-2 RNA (RT-PCR) (Negative) 11/17/23 11/17/23 11/17/23 Range/Units 15:06 15:06 15:06 WBC (4.8-10.8) X10*3/uL RBC (4.20-5.50) X10*6/uL Hgb (12.0-16.0) g/dl Hct (37.0-47.0) % MCV (80.0-98.0) fL MCH (27.0-33.0) pg MCHC (31.0-35.0) g/dl RDW (11.0-16.0) % Plt Count (160-400) X10*3/uL MPV (9.4-12.3) fL Immature Gran % (Auto) (0.0-0.4) % Neut % (Auto) (45-73) % Lymph % (Auto) (20-40) % [place] % (Auto) (2-11) % Eos % (Auto) (0-4) % Baso % (Auto) (0-2) % Lymph # (Auto) (1.2-4.9) X10*3/uL [place] # (Auto) (0.1-1.2) X10*3/uL Eos # (Auto) (0.0-0.4) X10*3/uL Baso # (Auto) (0.0-0.2) X10*3/uL Abs Immat Gran (auto) (0.00-0.03) X10*3/uL Absolute Neuts (auto) (2.0-8.3) x10*3/uL Absolute Nucleated RBC (0.0-0.012) X10*3/uL Nucleated RBC % (auto) (0.0-0.2) /100WBC D-Dimer High Sensitivty NG/ML Sodium Potassium Chloride 103 Carbon Dioxide Cancelled 27 Anion Gap Cancelled 15 BUN Cancelled Creatinine Estim Creat Clear Calc Estimated GFR Random Glucose Calcium Total Bilirubin Direct Bilirubin AST ALT Alkaline Phosphatase Troponin I High Sens (<3.5-17.0) ng/L B-Natriuretic Peptide (<100) pg/mL Total Protein Albumin Lipase Influenza Type A (PCR) (Negative) Influenza Type B (PCR) (Negative) RSV RNA Qual (PCR) (Negative) SARS-CoV-2 RNA (RT-PCR) (Negative) 11/17/23 11/17/23 11/17/23 Range/Units 15:06 15:06 15:06 WBC (4.8-10.8) X10*3/uL RBC (4.20-5.50) X10*6/uL Hgb (12.0-16.0) g/dl Hct (37.0-47.0) % MCV (80.0-98.0) fL MCH (27.0-33.0) pg MCHC (31.0-35.0) g/dl RDW (11.0-16.0) % Plt Count (160-400) X10*3/uL MPV (9.4-12.3) fL Immature Gran % (Auto) (0.0-0.4) % Neut % (Auto) (45-73) % Lymph % (Auto) (20-40) % [place] % (Auto) (2-11) % Eos % (Auto) (0-4) % Baso % (Auto) (0-2) % Lymph # (Auto) (1.2-4.9) X10*3/uL [place] # (Auto) (0.1-1.2) X10*3/uL Eos # (Auto) (0.0-0.4) X10*3/uL Baso # (Auto) (0.0-0.2) X10*3/uL Abs Immat Gran (auto) (0.00-0.03) X10*3/uL Absolute Neuts (auto) (2.0-8.3) x10*3/uL Absolute Nucleated RBC (0.0-0.012) X10*3/uL Nucleated RBC % (auto) (0.0-0.2) /100WBC D-Dimer High Sensitivty NG/ML Sodium Potassium Chloride Carbon Dioxide Anion Gap BUN 7 L Creatinine Cancelled 0.78 Estim Creat Clear Calc Cancelled 93.2 Estimated GFR Cancelled Random Glucose Calcium Total Bilirubin Direct Bilirubin AST ALT Alkaline Phosphatase Troponin I High Sens (<3.5-17.0) ng/L B-Natriuretic Peptide (<100) pg/mL Total Protein Albumin Lipase Influenza Type A (PCR) (Negative) Influenza Type B (PCR) (Negative) RSV RNA Qual (PCR) (Negative) SARS-CoV-2 RNA (RT-PCR) (Negative) 11/17/23 11/17/23 11/17/23 Range/Units 15:06 15:06 15:06 WBC (4.8-10.8) X10*3/uL RBC (4.20-5.50) X10*6/uL Hgb (12.0-16.0) g/dl Hct (37.0-47.0) % MCV (80.0-98.0) fL MCH (27.0-33.0) pg MCHC (31.0-35.0) g/dl RDW (11.0-16.0) % Plt Count (160-400) X10*3/uL MPV (9.4-12.3) fL Immature Gran % (Auto) (0.0-0.4) % Neut % (Auto) (45-73) % Lymph % (Auto) (20-40) % [place] % (Auto) (2-11) % Eos % (Auto) (0-4) % Baso % (Auto) (0-2) % Lymph # (Auto) (1.2-4.9) X10*3/uL [place] # (Auto) (0.1-1.2) X10*3/uL Eos # (Auto) (0.0-0.4) X10*3/uL Baso # (Auto) (0.0-0.2) X10*3/uL Abs Immat Gran (auto) (0.00-0.03) X10*3/uL Absolute Neuts (auto) (2.0-8.3) x10*3/uL Absolute Nucleated RBC (0.0-0.012) X10*3/uL Nucleated RBC % (auto) (0.0-0.2) /100WBC D-Dimer High Sensitivty NG/ML Sodium Potassium Chloride Carbon Dioxide Anion Gap BUN Creatinine Estim Creat Clear Calc Estimated GFR > 60 Random Glucose Cancelled 96 Calcium Cancelled 10.3 H D Total Bilirubin Cancelled Direct Bilirubin AST ALT Alkaline Phosphatase Troponin I High Sens (<3.5-17.0) ng/L B-Natriuretic Peptide (<100) pg/mL Total Protein Albumin Lipase Influenza Type A (PCR) (Negative) Influenza Type B (PCR) (Negative) RSV RNA Qual (PCR) (Negative) SARS-CoV-2 RNA (RT-PCR) (Negative) 11/17/23 11/17/23 11/17/23 Range/Units 15:06 15:06 15:06 WBC (4.8-10.8) X10*3/uL RBC (4.20-5.50) X10*6/uL Hgb (12.0-16.0) g/dl Hct (37.0-47.0) % MCV (80.0-98.0) fL MCH (27.0-33.0) pg MCHC (31.0-35.0) g/dl RDW (11.0-16.0) % Plt Count (160-400) X10*3/uL MPV (9.4-12.3) fL Immature Gran % (Auto) (0.0-0.4) % Neut % (Auto) (45-73) % Lymph % (Auto) (20-40) % [place] % (Auto) (2-11) % Eos % (Auto) (0-4) % Baso % (Auto) (0-2) % Lymph # (Auto) (1.2-4.9) X10*3/uL [place] # (Auto) (0.1-1.2) X10*3/uL Eos # (Auto) (0.0-0.4) X10*3/uL Baso # (Auto) (0.0-0.2) X10*3/uL Abs Immat Gran (auto) (0.00-0.03) X10*3/uL Absolute Neuts (auto) (2.0-8.3) x10*3/uL Absolute Nucleated RBC (0.0-0.012) X10*3/uL Nucleated RBC % (auto) (0.0-0.2) /100WBC D-Dimer High Sensitivty NG/ML Sodium Potassium Chloride Carbon Dioxide Anion Gap BUN Creatinine Estim Creat Clear Calc Estimated GFR Random Glucose Calcium Total Bilirubin 0.3 Direct Bilirubin Cancelled 0.1 AST Cancelled 22 ALT Cancelled Alkaline Phosphatase Troponin I High Sens (<3.5-17.0) ng/L B-Natriuretic Peptide (<100) pg/mL Total Protein Albumin Lipase Influenza Type A (PCR) (Negative) Influenza Type B (PCR) (Negative) RSV RNA Qual (PCR) (Negative) SARS-CoV-2 RNA (RT-PCR) (Negative) 11/17/23 11/17/23 11/17/23 Range/Units 15:06 15:06 15:06 WBC (4.8-10.8) X10*3/uL RBC (4.20-5.50) X10*6/uL Hgb (12.0-16.0) g/dl Hct (37.0-47.0) % MCV (80.0-98.0) fL MCH (27.0-33.0) pg MCHC (31.0-35.0) g/dl RDW (11.0-16.0) % Plt Count (160-400) X10*3/uL MPV (9.4-12.3) fL Immature Gran % (Auto) (0.0-0.4) % Neut % (Auto) (45-73) % Lymph % (Auto) (20-40) % [place] % (Auto) (2-11) % Eos % (Auto) (0-4) % Baso % (Auto) (0-2) % Lymph # (Auto) (1.2-4.9) X10*3/uL [place] # (Auto) (0.1-1.2) X10*3/uL Eos # (Auto) (0.0-0.4) X10*3/uL Baso # (Auto) (0.0-0.2) X10*3/uL Abs Immat Gran (auto) (0.00-0.03) X10*3/uL Absolute Neuts (auto) (2.0-8.3) x10*3/uL Absolute Nucleated RBC (0.0-0.012) X10*3/uL Nucleated RBC % (auto) (0.0-0.2) /100WBC D-Dimer High Sensitivty NG/ML Sodium Potassium Chloride Carbon Dioxide Anion Gap BUN Creatinine Estim Creat Clear Calc Estimated GFR Random Glucose Calcium Total Bilirubin Direct Bilirubin AST ALT 22 Alkaline Phosphatase Cancelled 78 Troponin I High Sens 3.4 (<3.5-17.0) ng/L B-Natriuretic Peptide 71 (<100) pg/mL Total Protein Cancelled 7.8 Albumin Cancelled Lipase Influenza Type A (PCR) (Negative) Influenza Type B (PCR) (Negative) RSV RNA Qual (PCR) (Negative) SARS-CoV-2 RNA (RT-PCR) (Negative) 11/17/23 11/17/23 Range/Units 15:06 15:06 WBC (4.8-10.8) X10*3/uL RBC (4.20-5.50) X10*6/uL Hgb (12.0-16.0) g/dl Hct (37.0-47.0) % MCV (80.0-98.0) fL MCH (27.0-33.0) pg MCHC (31.0-35.0) g/dl RDW (11.0-16.0) % Plt Count (160-400) X10*3/uL MPV (9.4-12.3) fL Immature Gran % (Auto) (0.0-0.4) % Neut % (Auto) (45-73) % Lymph % (Auto) (20-40) % [place] % (Auto) (2-11) % Eos % (Auto) (0-4) % Baso % (Auto) (0-2) % Lymph # (Auto) (1.2-4.9) X10*3/uL [place] # (Auto) (0.1-1.2) X10*3/uL Eos # (Auto) (0.0-0.4) X10*3/uL Baso # (Auto) (0.0-0.2) X10*3/uL Abs Immat Gran (auto) (0.00-0.03) X10*3/uL Absolute Neuts (auto) (2.0-8.3) x10*3/uL Absolute Nucleated RBC (0.0-0.012) X10*3/uL Nucleated RBC % (auto) (0.0-0.2) /100WBC D-Dimer High Sensitivty NG/ML Sodium Potassium Chloride Carbon Dioxide Anion Gap BUN Creatinine Estim Creat Clear Calc Estimated GFR Random Glucose Calcium Total Bilirubin Direct Bilirubin AST ALT Alkaline Phosphatase Troponin I High Sens (<3.5-17.0) ng/L B-Natriuretic Peptide (<100) pg/mL Total Protein Albumin 4.3 Lipase Cancelled 13 Influenza Type A (PCR) NEGATIVE (Negative) Influenza Type B (PCR) NEGATIVE (Negative) RSV RNA Qual (PCR) NEGATIVE (Negative) SARS-CoV-2 RNA (RT-PCR) NEGATIVE (Negative) Independent Interpretation I performed an independent interpretation of an: EKG (Normal sinus rhythm at 76 beats per minutes, normal axis deviation, normal intervals, no ST-T changes.), Plain X-Ray (Chest/right foot: No acute pathology in the chest or right foot.) and CT Scan (Head: No acute intracranial pathology.) Radiology Impression Discussion of test interpretation with radiology: I have reviewed the radiologist's reading. Discharge Plan Discharge Clinical Impression: Syncope Qualifiers: Encounter type: initial encounter Patient Disposition: Admitted As Inpatient Prescriptions: No Action ropinirole 1 mg Tablet 1 mg PO BEDTIME Qty: 30 0RF olanzapine 10 mg Tablet 10 mg PO BEDTIME Qty: 30 0RF clonidine HCl 0.2 mg Tablet 0.2 mg PO BEDTIME Qty: 30 0RF Protocol: Hold for SBP< HOLD for SBP < : 90 albuterol sulfate [Ventolin HFA] 90 mcg/actuation Hfa Aerosol Inhaler 2 puff inhalation Q4H PRN (Reason: shortness of breath or wheezing) Qty: 6.7 0RF tiotropium bromide [Spiriva with HandiHaler] 18 mcg Capsule, W/Inhalation Device 18 mcg inhalation RDAILY Qty: 20 0RF ferrous sulfate 324 mg (65 mg iron) Tablet,Delayed Release (Dr/Ec) 324 mg PO DAILY Qty: 30 0RF omeprazole 20 mg Capsule,Delayed Release(Dr/Ec) 20 mg PO DAILY@0630 Qty: 30 0RF lithium carbonate 450 mg tablet extended release 450 mg PO TID cyanocobalamin (vitamin B-12) [Vitamin B-12] 1,000 mcg tablet 1,000 mcg PO DAILY ipratropium-albuterol 0.5 mg-3 mg(2.5 mg base)/3 mL solution for nebulization 3 ml inhalation RQ6H PRN (Reason: Shortness Of Breath Or Wheezing) gabapentin 400 mg Capsule 400 mg PO TID prednisone 10 mg Tablet See Taper PO DAILY Qty: 15 0RF Taper: Prednisone 40 mg daily for 1 Day and 0 Hour 30 mg daily for 3 Days and 0 Hour 20 mg daily for 3 Days and 0 Hour 10 mg daily for 3 Days and 0 Hour Rx Instructions: 30 MG FOR 3 DAYS 20MG FOR 3 DAYS 10 MG FOR 3 DAYS nitrofurantoin monohyd/m-cryst [Macrobid] 100 mg capsule 100 mg PO BID 5 Days Qty: 10 0RF Rx Instructions: must administer with a meal/food
[2023-11-17] MEDS: Albuterol Sulfate 5 MG, Albuterol/Iprat 2.5/0.5MG 3 ML 3 ML INHALE (14:35)
[2023-11-17 15:11] LABS: MANUAL DIFF FLAG NO
[2023-11-17] MEDS: methylPREDNISolone Sod Succ 125 MG/2 ML VIAL IVPUSH (15:11)
[2023-11-17 15:14] LABS: Basophils Absolute Auto 0.1 X10*3/uL (0.0-0.2); Basophils Percent Auto 0.8 % (0-2); Eosinophils Absolute Auto 0.3 X10*3/uL (0.0-0.4); Eosinophils Percent Auto 3.1 % (0-4); Hematocrit 48.9 % (37.0-47.0); Hemoglobin 15.7 g/dl (12.0-16.0); Imm Gran Abs Auto 0.02 X10*3/uL (0.00-0.03); Imm Gran Pct Auto 0.2 % (0.0-0.4); Lymphocytes Absolute Auto 2.5 X10*3/uL (1.2-4.9); Lymphocytes Percent Auto 29.9 % (20-40); Mean Corpuscular HGB Conc 32.1 g/dl (31.0-35.0); Mean Corpuscular Hemoglobin 30.8 pg (27.0-33.0); Mean Corpuscular Volume 95.9 fL (80.0-98.0); Mean Platelet Volume 9.8 fL (9.4-12.3); Monocytes Absolute Auto 0.4 X10*3/uL (0.1-1.2); Monocytes Percent Auto 4.4 % (2-11); Neutrophils Absolute Auto 5.1 x10*3/uL (2.0-8.3); Neutrophils Percent Auto 61.6 % (45-73); Platelet Count 273 X10*3/uL (160-400); Red Cell Distribution Width 12.6 % (11.0-16.0); White Blood Count 8.3 X10*3/uL (4.8-10.8)
[2023-11-17 15:20] LABS: D Dimer High Sensitivity 261 NG/ML
[2023-11-17 15:36] LABS: Troponin-I High Sensitivity 3.4 ng/L (<3.5-17.0)
[2023-11-17 15:49] LABS: Alanine Aminotransferase 22 U/L (0-31); Albumin Level 4.3 g/dL (3.5-5.0); Alkaline Phosphatase 78 U/L (39-117); Anion Gap 15 (12-20); Aspartate Amino Transferase 22 U/L (5-31); Bilirubin Direct 0.1 mg/dL (0.0-0.5); Bilirubin Total 0.3 mg/dL (0.0-1.0); Blood Urea Nitrogen 7 mg/dL (9-16); Calcium 10.3 mg/dL (8.4-10.2); Carbon Dioxide 27 mmol/L (22-29); Chloride 103 mmol/L (96-108); Creatinine Clr Calc Pharmacy 93.2; Estimated Glomerular Filt Rate > 60; Glucose Random 96 mg/dL (60-115); Lipase 13 U/L (8-78); Potassium 4.5 mmol/L (3.3-5.1); Sodium 140 mmol/L (135-145); Total Protein 7.8 g/dL (6.5-8.0)
--- NOTE | 2023-11-17 15:53 | PC.NURSE ---
ambulated to bathroom utilizing own walker. patient stated she felt much better than she did prior to arrival, able to ambulate with steady gait. denies dizziness at this time. patient drinking coffee and eating snacks in room.
--- NOTE | 2023-11-17 15:53 | MHC.EDTECH ---
This pct assumed care at 1500, the pt asked for food and was given crackers and the pt has no further requests or complaints.
[2023-11-17 15:56] LABS: B Type Natriuretic Peptide 71 pg/mL (<100); Influenza A PCR NEGATIVE (Negative); Influenza B PCR NEGATIVE (Negative); Resp Syncy Virus RNA Qual PCR NEGATIVE (Negative); SARS COV2 PCR INHOUSE NEGATIVE (Negative)
--- NOTE | 2023-11-17 17:18 | PC.NURSE ---
Addendum entered by Cyndi Jett 11/17/23 17:20: placed on 2L nasal cannula at this time. Original Note: stating that she has been having loose stools since her arrival. continues to rest comfortably, oxygen has been dropping as low as 84% on room air.
--- NOTE | 2023-11-17 17:36 | PHA.MEDREC ---
Pharmacy Consult ? Medication Reconciliation Pharmacy has completed the medication reconciliation.Ptient confirmed medication. Patient reported Clonidine 0.2 was increased to 1mg however this is not a typical dose. Lindsay Burns CPhT
--- NOTE | 2023-11-17 17:40 | PHA.MEDREC ---
Pharmacy Consult ? Medication Reconciliation Pharmacy has completed the medication reconciliation.Patient confirmed medication. Patient reported that Clonidine 0.2 was increased to 1mg however this is not a typical dose therefore left as clonidine 0.2. Since there is no claim history will have pharmacist call [facility] to confirm dose. Patient also reported she started Macrobid today and Valcyclovir is an ongoing medication. Lindsay Burns CPhT
--- NOTE | 2023-11-17 18:24 | PC.NURSE ---
patient requesting cpap machine for when she goes to sleep as she left her own at home
--- NOTE | 2023-11-17 18:38 | P.HPHOSP_ITS ---
History of Present Illness Date of Service: 11/17/23 Chief Complaint: Near-syncope 53-year-old female patient with past medical history significant for moderate persistent asthma, COPD, obstructive sleep apnea on CPAP, GERD, mood disorder, tobacco use disorder presented to [facility] due to dizziness, lightheadedness and shakiness that started this morning while she was in bed, VNA came on the door patient walked to open the door but she fell down , she denies loss of consciousness, no head injury, no trauma, she managed to crawl and open the door for the VNA,, she was given her morning medications but she continued to feel shaky, weak ,felt jumpy therefore came to the emergency room she denies associated fever, no chills has been compliant with all of her medications she was recently diagnosed to have UTI and took 1st dose of Macrobid this morning, denies shortness of breath, no cough, no sick contacts in the emergency room she had a normal CBC and BMP recent urine culture showed mixed organism, influenza, RSV and COVID test are negative, patient noted to have positive orthostatic blood pressures therefore will be admitted to [facility] with a diagnosis of near-syncope due to orthostatic hypotension. Review of Systems 2 Review of Systems: General no fever chills. CVS no chest pain, no palpitation. 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 Drug abuse Bipolar I disorder Post traumatic stress disorder (PTSD) Tobacco use disorder FABIOLA (obstructive sleep apnea) Borderline personality disorder Intermittent explosive disorder Asthma exacerbation in COPD Herpes Tobacco use Bipolar disorder COPD (chronic obstructive pulmonary disease) Family History Mother COPD (chronic obstructive pulmonary disease) Surgical History History of ankle surgery History of back surgery Hx of cholecystectomy History of appendectomy Social History Household Members: None Household Members Other:: Skilled Nursing in [place] Housing: Apartment Housing Other:: Sleeps on the couch at [facility] house Do you presently have visiting nurse or other home services: Yes (medication and [employer] awaiting) Unable to assess alcohol history related to: Unknown Alcohol intake: current Alcohol intake frequency: holidays/special occasions only Alcohol type: hard liquor Comment: pt has sitter in room Patient Tobacco Use Status: Current everyday Tobacco user Tobacco use type: Cigarette Cigarette Packs Per Day: 1 Cigarettes Per Day: 8 Years Smoked: 40 e-Cigarette/Vaping Use: Never Used Second Hand Smoke Exposure: No Substance Use Type: Crack/Cocaine Advance Directives: Yes Advance Directives on File: Yes Advance Directives Date on File: 06/17/22 service: No Current occupational status: unemployed and disabled Sexual orientation: Straight/Heterosexual Meds Allergies Allergy/AdvReac Type Severity Reaction Status Date / Time aspirin Allergy Mild Anaphylaxis Verified 11/12/23 06:31 ampicillin Allergy Rash Verified 11/12/23 06:31 Penicillins Allergy Anaphylaxis Verified 11/12/23 06:31 latex AdvReac Rash Verified 11/12/23 06:31 Latex, Natural Rubber AdvReac Rash Verified 11/12/23 06:31 seafood AdvReac Anaphylaxis Verified 11/12/23 06:31 Sulfa (Sulfonamide AdvReac Hives Verified 11/12/23 06:31 Antibiotics) Active Medications: Current Medications Acetaminophen (Acetaminophen 325 Mg Tablet) 650 mg PO Q6H PRN PRN Reason: Pain, Mild (Pain Scale 1-3) Albuterol Sulfate (Albuterol Sulfate 90 Mcg 8 Gm Inhaler) 2 puff INHALE Q4H PRN PRN Reason: shortness of breath or wheezing Albuterol/Ipratropium (Albuterol/Iprat 2.5/0.5mg 3 Ml Ampul.Neb) 3 ml INHALE RQ6H PRN PRN Reason: Shortness Of Breath Or Wheezing Benzonatate (Benzonatate 100 Mg Capsule) 100 mg PO TID PRN PRN Reason: Cough Cyanocobalamin (Cyanocobalamin (Vitamin B-12) 1,000 Mcg Tablet) 1,000 mcg PO DAILY TEJA Docusate Sodium (Docusate Sodium 100 Mg Capsule) 100 mg PO DAILY PRN PRN Reason: Constipation Enoxaparin Sodium (Enoxaparin Sodium 40 Mg/0.4 Ml Syringe) 40 mg SUBCUT Q24H [facility] Ferrous Sulfate (Ferrous Sulfate 324 Mg Tablet.) 324 mg PO DAILY [facility] Gabapentin (Gabapentin 400 Mg Capsule) 400 mg PO TID [facility] Sodium Chloride (Ns) 1,000 mls @ 100 mls/hr IVCONT .Q10H [facility] Stop: 11/18/23 04:44 Pablo Carbonate (Pablo Carbonate Er 450 Mg Tablet.Er) 450 mg PO TID [facility] Melatonin (Melatonin 3 Mg Tablet) 6 mg PO BEDTIME PRN PRN Reason: Insomnia Non-Formulary Medication (Tiotropium Elora [Spiriva With Handihaler]) 18 mcg INHALE RDAILY [facility] Olanzapine (Olanzapine 10 Mg Tablet) 10 mg PO BEDTIME [facility] Omeprazole (Omeprazole 20 Mg Capsule.) 20 mg PO DAILY@0630 [facility] Ondansetron HCl (Ondansetron Hcl 4 Mg/2 Ml Vial) 4 mg IVPUSH Q8H PRN PRN Reason: Nausea and Vomiting Ropinirole HCl (Ropinirole Hcl 1 Mg Tablet) 1 mg PO BEDTIME [facility] Sodium Chloride (0.9 % Sodium Chloride Flush 3 Ml Syringe) 3 ml IVFLUSH QSHIFT [facility] Home Medications Medication Instructions Recorded Confirmed Last Taken Type lithium carbonate 450 mg 450 mg PO TID 05/14/23 11/17/23 11/17/23 History tablet,extended release cyanocobalamin (vitamin B-12) 1,000 mcg PO DAILY 06/11/23 11/17/23 11/17/23 History 1,000 mcg tablet (Vitamin B-12) ipratropium 0.5 mg-albuterol 3 mg 3 ml inhalation RQ6H PRN Shortness 06/11/23 11/17/23 10/23/23 History (2.5 mg base)/3 mL nebulization Of Breath Or Wheezing soln gabapentin 400 mg capsule 400 mg PO TID 10/24/23 11/17/23 11/17/23 History valacyclovir 1 gram tablet 1,000 mg PO BID 11/17/23 11/17/23 11/17/23 History Physical Exam 2 Vital Signs and Narrative: Vital Signs: Last Vital Signs Temp 98.3 F 11/17/23 17:34 Pulse 79 11/17/23 17:34 Resp 16 11/17/23 17:34 BP 106/83 11/17/23 17:34 Pulse Ox 97 11/17/23 17:34 O2 Del Method Nasal Cannula 11/17/23 17:34 O2 Flow Rate 95 11/17/23 17:34 BMI result Body Mass Index 30.7 Const: Other: General awake alert x3, resting comfortably in no acute distress. Anicteric sclera Neck is supple no JVD. CVS regular rate rhythm, Respiratory lungs clear to auscultation, no wheeze, no rhonchi, no respiratory distress. Gastrointestinal abdomen soft, non tender, bowel sounds audible, no no guarding , no rigidity. Extremities no edema. Second right toenail, no erythema, no swelling, no laceration. Neuro nonfocal Skin no rash Psych appropriate affect Results Labs 11/17/23 15:06 11/17/23 15:06 Labs: Laboratory Results - last 24 hr 11/17/23 11/17/23 11/17/23 15:06 15:06 15:06 MCV 95.9 MCH 30.8 MCHC 32.1 RDW 12.6 Plt Count 273 MPV 9.8 Immature Gran % (Auto) 0.2 Neut % (Auto) 61.6 Lymph % (Auto) 29.9 Morton % (Auto) 4.4 Eos % (Auto) 3.1 Baso % (Auto) 0.8 Lymph # (Auto) 2.5 Morton # (Auto) 0.4 Eos # (Auto) 0.3 Baso # (Auto) 0.1 Abs Immat Gran (auto) 0.02 Absolute Neuts (auto) 5.1 Absolute Nucleated RBC 0.000 Nucleated RBC % (auto) 0.0 D-Dimer High Sensitivty 261 Anion Gap Cancelled 15 Estim Creat Clear Calc Cancelled 93.2 Estimated GFR Cancelled Random Glucose Calcium Total Bilirubin Direct Bilirubin AST ALT Alkaline Phosphatase B-Natriuretic Peptide Total Protein Albumin Lipase Influenza Type A (PCR) Influenza Type B (PCR) RSV RNA Qual (PCR) SARS-CoV-2 RNA (RT-PCR) 11/17/23 11/17/23 11/17/23 15:06 15:06 15:06 MCV MCH MCHC RDW Plt Count MPV Immature Gran % (Auto) Neut % (Auto) Lymph % (Auto) Morton % (Auto) Eos % (Auto) Baso % (Auto) Lymph # (Auto) Morton # (Auto) Eos # (Auto) Baso # (Auto) Abs Immat Gran (auto) Absolute Neuts (auto) Absolute Nucleated RBC Nucleated RBC % (auto) D-Dimer High Sensitivty Anion Gap Estim Creat Clear Calc Estimated GFR > 60 Random Glucose Cancelled 96 Calcium Cancelled 10.3 H D Total Bilirubin Cancelled Direct Bilirubin AST ALT Alkaline Phosphatase B-Natriuretic Peptide Total Protein Albumin Lipase Influenza Type A (PCR) Influenza Type B (PCR) RSV RNA Qual (PCR) SARS-CoV-2 RNA (RT-PCR) 11/17/23 11/17/23 11/17/23 15:06 15:06 15:06 MCV MCH MCHC RDW Plt Count MPV Immature Gran % (Auto) Neut % (Auto) Lymph % (Auto) Morton % (Auto) Eos % (Auto) Baso % (Auto) Lymph # (Auto) Morton # (Auto) Eos # (Auto) Baso # (Auto) Abs Immat Gran (auto) Absolute Neuts (auto) Absolute Nucleated RBC Nucleated RBC % (auto) D-Dimer High Sensitivty Anion Gap Estim Creat Clear Calc Estimated GFR Random Glucose Calcium Total Bilirubin 0.3 Direct Bilirubin Cancelled 0.1 AST Cancelled 22 ALT Cancelled Alkaline Phosphatase B-Natriuretic Peptide Total Protein Albumin Lipase Influenza Type A (PCR) Influenza Type B (PCR) RSV RNA Qual (PCR) SARS-CoV-2 RNA (RT-PCR) 11/17/23 11/17/23 11/17/23 15:06 15:06 15:06 MCV MCH MCHC RDW Plt Count MPV Immature Gran % (Auto) Neut % (Auto) Lymph % (Auto) Morton % (Auto) Eos % (Auto) Baso % (Auto) Lymph # (Auto) Morton # (Auto) Eos # (Auto) Baso # (Auto) Abs Immat Gran (auto) Absolute Neuts (auto) Absolute Nucleated RBC Nucleated RBC % (auto) D-Dimer High Sensitivty Anion Gap Estim Creat Clear Calc Estimated GFR Random Glucose Calcium Total Bilirubin Direct Bilirubin AST ALT 22 Alkaline Phosphatase Cancelled 78 B-Natriuretic Peptide 71 Total Protein Cancelled 7.8 Albumin Cancelled Lipase Influenza Type A (PCR) Influenza Type B (PCR) RSV RNA Qual (PCR) SARS-CoV-2 RNA (RT-PCR) 11/17/23 11/17/23 15:06 15:06 MCV MCH MCHC RDW Plt Count MPV Immature Gran % (Auto) Neut % (Auto) Lymph % (Auto) Morton % (Auto) Eos % (Auto) Baso % (Auto) Lymph # (Auto) Morton # (Auto) Eos # (Auto) Baso # (Auto) Abs Immat Gran (auto) Absolute Neuts (auto) Absolute Nucleated RBC Nucleated RBC % (auto) D-Dimer High Sensitivty Anion Gap Estim Creat Clear Calc Estimated GFR Random Glucose Calcium Total Bilirubin Direct Bilirubin AST ALT Alkaline Phosphatase B-Natriuretic Peptide Total Protein Albumin 4.3 Lipase Cancelled 13 Influenza Type A (PCR) NEGATIVE Influenza Type B (PCR) NEGATIVE RSV RNA Qual (PCR) NEGATIVE SARS-CoV-2 RNA (RT-PCR) NEGATIVE Imaging Radiologist's Impressions: Impressions Head CT 11/17/23 14:32 IMPRESSION: No acute intracranial pathology. Chest X-Ray 11/17/23 15:23 IMPRESSION: Unremarkable examination. Foot X-Ray 11/17/23 15:23 IMPRESSION: Normal right foot. Assessment and Plan (1) Near syncope: Status: Acute (2) Orthostatic hypotension: Status: Acute Plan 53-year-old female patient with moderate persistent asthma, COPD, obstructive sleep apnea on CPAP, mood disorder, tobacco use disorder presented with symptoms of near syncope and diagnosed to have orthostatic hypotension. Near-syncope due to orthostatic hypotension Admit to telemetry, treat with IV fluids, hold clonidine Tele monitor rule out arrhythmia, repeat orthostatics at a.m. Follow clinical course Question UTI will hold Macrobid urine culture from November 12 showed mixed bacterial blossom, patient complaining of urinary burning and itching will obtain urinalysis. FABIOLA Continue CPAP at night GERD continue Prilosec Mood disorder Continue mood stabilizers DVT prophylaxis-Lovenox Full code Admitted under observation. Quality Stroke Does the patient have a stroke diagnosis?: No VTE Prior VTE?: No VTE Risk Level:: Medical - moderate - high VTE Device Contraindication: Treatment Not Indicated VTE Drug Contraindication: N/A - Med Ordered
[2023-11-17] MEDS: ondansetron HCL 4 MG/2 ML VIAL IVPUSH (18:42)
--- NOTE | 2023-11-17 19:03 | MHC.EDTECH ---
pt given brooks abner and helped to the commode and back
--- NOTE | 2023-11-17 19:52 | MHC.EDTECH ---
Patient was assisted unto bedside commode ,void and was assisted back to bed .
[2023-11-17] MEDS: Enoxaparin Sodium 40 MG/0.4 ML SYRINGE SUBCUT (20:37)
[2023-11-17] MEDS: 0.9 % Sodium Chloride 1,000 ML 100 ML IVCONT (20:37)
[2023-11-17] MEDS: rOPINIRole HCL 1 MG TABLET PO (20:37)
[2023-11-17] MEDS: OLANZapine 10 MG TABLET PO (20:37)
[2023-11-17] MEDS: Gabapentin 400 MG CAPSULE PO (20:37)
[2023-11-17] MEDS: Lithium Carbonate ER 450 MG TABLET.ER PO (20:37)
[2023-11-17 21:38] LABS: Appearance Urine Clear; Color Urine Yellow; Glucose Urine UA Negative (Negative); Leukocyte Esterase Urine Negative (Negative); Nitrite Urine Negative (Negative); PH 5.5 (5.0-9.0); Specific Gravity - Urine <= 1.005 (1.005-1.025); Urine Blood Negative (Negative); Urine Ketones Negative (Negative); Urine Protein Negative (Neg-Trace)
[2023-11-18] VITALS (10 sets, daily range): BP systolic 118–152; BP diastolic 61–87; PULSE 71–95; RESP 18–20; TEMP 36.1–37.2; O2SAT 90–92
[2023-11-18] MEDS: Omeprazole 20 MG CAPSULE.DR PO (06:31)
[2023-11-18] MEDS: Ferrous Sulfate 324 MG TABLET.DR PO (08:24)
[2023-11-18] MEDS: Lithium Carbonate ER 450 MG TABLET.ER PO ×3 (08:24→21:32)
[2023-11-18] MEDS: Gabapentin 400 MG CAPSULE PO ×3 (08:24→21:32)
[2023-11-18] MEDS: Cyanocobalamin (Vitamin B-12) 1,000 MCG TABLET 1000 MCG PO (08:24)
[2023-11-18] MEDS: Tiotropium Bromide 2.5 mcg 1 PUFF/2.5 MCG MIST.INHAL 2 PUFF INHALE (11:00)
--- NOTE | 2023-11-18 11:17 | MHC.CM.PN ---
PT REPORTS SHE LIVES ALONE IN AN APARTMENT IN [place] SHE IS ACTIVE WITH SATHYA YADAV FOR DAILY MED VISITS SHE SAYS HER NURSE IS DAVID [phone] PT STATES SHE ALSO CAN A CM FROM A (JULIANNE [phone]) HOWEVER SHE OFTEN CANNOT REACH HIM AND HAS TO GO THROUGH HIS ENGAGEMENT MANAGER, BETTY [phone] PT USES A ROLLATOR, A CPAP, AND A NEBULIZER FOR DME HCP ON FILE PCP: KEVEN MARQUEZ OBSERVATION NOTICE DELIVERED DCP: [facility] WORKER TO TRANSPORT
--- NOTE | 2023-11-18 15:30 | P.PNIM_ITS ---
Subjective Subjective Date of Service: 11/18/23 Interval History: Admitted for near-syncope had no symptoms of shortness of breath , no cough, no fever, no chills on admission. Complaining of lightheadedness, and shortness of breath, noted to have mild hypoxia ,denies fever, no chills, no cough, orthostatic studies this morning are negative. Denies urinary symptoms of urgency or frequency today. Tolerating diet no nausea, no vomiting, no abdominal pain, no diarrhea. Review of Systems All other system reviewed and negative Physical Exam 2 Vital Signs: Vital Signs: Last Vital Signs Temp 97.7 F 11/18/23 15:16 Pulse 75 11/18/23 15:16 Resp 20 11/18/23 15:16 BP 152/80 H 11/18/23 15:16 Pulse Ox 90 L 11/18/23 15:16 O2 Del Method Room Air 11/18/23 15:16 O2 Flow Rate 2 11/18/23 08:00 BMI result Body Mass Index 30.7 Const: Other: General awake alert x3, resting comfortably in no acute distress. Anicteric sclera Neck is supple no JVD. CVS regular rate rhythm, Respiratory lungs diminished breath sounds, bilateral expiratory wheeze ,no resp distress. Gastrointestinal abdomen soft, non tender, bowel sounds audible Extremities no edema. Second right toenail, no erythema, no swelling, no laceration. Neuro non focal Skin no rash Psych appropriate affect Objective Data Active Medications Acetaminophen (Acetaminophen 325 Mg Tablet) 650 mg PO Q6H PRN PRN Reason: Pain, Mild (Pain Scale 1-3) Albuterol Sulfate (Albuterol Sulfate 90 Mcg 8 Gm Inhaler) 2 puff INHALE Q4H PRN PRN Reason: shortness of breath or wheezing Albuterol/Ipratropium (Albuterol/Iprat 2.5/0.5mg 3 Ml Ampul.Neb) 3 ml INHALE RQ6H PRN PRN Reason: Shortness Of Breath Or Wheezing Benzonatate (Benzonatate 100 Mg Capsule) 100 mg PO TID PRN PRN Reason: Cough Cyanocobalamin (Cyanocobalamin (Vitamin B-12) 1,000 Mcg Tablet) 1,000 mcg PO DAILY TEJA Last Admin: 11/18/23 08:24 Dose: 1,000 mcg Documented By: HO.SOFFAA Docusate Sodium (Docusate Sodium 100 Mg Capsule) 100 mg PO DAILY PRN PRN Reason: Constipation Enoxaparin Sodium (Enoxaparin Sodium 40 Mg/0.4 Ml Syringe) 40 mg SUBCUT Q24H [facility] Ferrous Sulfate (Ferrous Sulfate 324 Mg Tablet.) 324 mg PO DAILY [facility] Last Admin: 11/18/23 08:24 Dose: 324 mg Documented By: REHANA Gabapentin (Gabapentin 400 Mg Capsule) 400 mg PO TID [facility] Last Admin: 11/18/23 14:39 Dose: 400 mg Documented By: REHANA Gurley Carbonate (Gurley Carbonate Er 450 Mg Tablet.Er) 450 mg PO TID [facility] Last Admin: 11/18/23 14:39 Dose: 450 mg Documented By: REHANA Melatonin (Melatonin 3 Mg Tablet) 6 mg PO BEDTIME PRN PRN Reason: Insomnia Olanzapine (Olanzapine 10 Mg Tablet) 10 mg PO BEDTIME [facility] Last Admin: 11/17/23 20:37 Dose: 10 mg Documented By: LEDA Omeprazole (Omeprazole 20 Mg Capsule.) 20 mg PO DAILY@0630 [facility] Last Admin: 11/18/23 06:31 Dose: 20 mg Documented By: REBECCA Ondansetron HCl (Ondansetron Hcl 4 Mg/2 Ml Vial) 4 mg IVPUSH Q8H PRN PRN Reason: Nausea and Vomiting Last Admin: 11/17/23 18:42 Dose: 4 mg Documented By: MARION Ropinirole HCl (Ropinirole Hcl 1 Mg Tablet) 1 mg PO BEDTIME [facility] Last Admin: 11/17/23 20:37 Dose: 1 mg Documented By: LEDA Sodium Chloride (0.9 % Sodium Chloride Flush 3 Ml Syringe) 3 ml IVFLUSH QSHIFT [facility] Last Admin: 11/18/23 13:25 Dose: Not Given Documented By: REHANA Non-Admin Reason: See Note Tiotropium [place] (Tiotropium [place] 2.5 Mcg 1 Puff/2.5 Mcg Mist.Inhal) 2 puff INHALE RDAILY [facility] Last Admin: 11/18/23 11:00 Dose: 2 puff Documented By: GLUKHOS Labs 11/17/23 15:06 11/17/23 15:06 Labs: Laboratory Results - last 24 hr 11/17/23 11/17/23 11/17/23 15:06 15:06 15:06 Anion Gap Cancelled 15 Estim Creat Clear Calc Cancelled 93.2 Estimated GFR Cancelled Random Glucose Calcium Total Bilirubin Direct Bilirubin AST ALT Alkaline Phosphatase B-Natriuretic Peptide Total Protein Albumin Lipase Urine Color Urine Appearance Urine pH Ur Specific [place] Urine Protein Urine Glucose (UA) Urine Ketones Urine Blood Urine Nitrite Ur Leukocyte Esterase Influenza Type A (PCR) Influenza Type B (PCR) RSV RNA Qual (PCR) SARS-CoV-2 RNA (RT-PCR) 11/17/23 11/17/23 11/17/23 15:06 15:06 15:06 Anion Gap Estim Creat Clear Calc Estimated GFR > 60 Random Glucose Cancelled 96 Calcium Cancelled 10.3 H D Total Bilirubin Cancelled Direct Bilirubin AST ALT Alkaline Phosphatase B-Natriuretic Peptide Total Protein Albumin Lipase Urine Color Urine Appearance Urine pH Ur Specific [place] Urine Protein Urine Glucose (UA) Urine Ketones Urine Blood Urine Nitrite Ur Leukocyte Esterase Influenza Type A (PCR) Influenza Type B (PCR) RSV RNA Qual (PCR) SARS-CoV-2 RNA (RT-PCR) 11/17/23 11/17/23 11/17/23 15:06 15:06 15:06 Anion Gap Estim Creat Clear Calc Estimated GFR Random Glucose Calcium Total Bilirubin 0.3 Direct Bilirubin Cancelled 0.1 AST Cancelled 22 ALT Cancelled Alkaline Phosphatase B-Natriuretic Peptide Total Protein Albumin Lipase Urine Color Urine Appearance Urine pH Ur Specific [place] Urine Protein Urine Glucose (UA) Urine Ketones Urine Blood Urine Nitrite Ur Leukocyte Esterase Influenza Type A (PCR) Influenza Type B (PCR) RSV RNA Qual (PCR) SARS-CoV-2 RNA (RT-PCR) 11/17/23 11/17/23 11/17/23 15:06 15:06 15:06 Anion Gap Estim Creat Clear Calc Estimated GFR Random Glucose Calcium Total Bilirubin Direct Bilirubin AST ALT 22 Alkaline Phosphatase Cancelled 78 B-Natriuretic Peptide 71 Total Protein Cancelled 7.8 Albumin Cancelled Lipase Urine Color Urine Appearance Urine pH Ur Specific [place] Urine Protein Urine Glucose (UA) Urine Ketones Urine Blood Urine Nitrite Ur Leukocyte Esterase Influenza Type A (PCR) Influenza Type B (PCR) RSV RNA Qual (PCR) SARS-CoV-2 RNA (RT-PCR) 11/17/23 11/17/23 11/17/23 15:06 15:06 21:18 Anion Gap Estim Creat Clear Calc Estimated GFR Random Glucose Calcium Total Bilirubin Direct Bilirubin AST ALT Alkaline Phosphatase B-Natriuretic Peptide Total Protein Albumin 4.3 Lipase Cancelled 13 Urine Color Yellow Urine Appearance Clear Urine pH 5.5 Ur Specific [place] <= 1.005 Urine Protein Negative Urine Glucose (UA) Negative Urine Ketones Negative Urine Blood Negative Urine Nitrite Negative Ur Leukocyte Esterase Negative Influenza Type A (PCR) NEGATIVE Influenza Type B (PCR) NEGATIVE RSV RNA Qual (PCR) NEGATIVE SARS-CoV-2 RNA (RT-PCR) NEGATIVE Assessment and Plan (1) Orthostatic hypotension: Status: Acute (2) Near syncope: Status: Acute Plan 53-year-old female patient with moderate persistent asthma, COPD, obstructive sleep apnea on CPAP, mood disorder, tobacco use disorder presented with symptoms of near syncope and diagnosed to have orthostatic hypotension. Near-syncope due to orthostatic hypotension Feeling better, less lightheaded Status post IV fluids, repeat orthostatic BP is normal Clonidine 0.2 mg at bedtime was held will resume low-dose clonidine 0.1 mg at bedtime to avoid rebound hypertension No arrhythmias, normal neuro exam Will check lithium level Acute hypoxic respiratory failure secondary to COPD/moderate persistent asthma with acute decompensation Will place on IV Solu-Medrol, DuoNebs scheduled and as needed Chest x-ray unremarkable hold antibiotics/influenza RSV and COVID negative Supportive care with Oxygen, cough medications and analgesics Question UTI urine culture from November 12 showed mixed bacterial blossom, will DC Macrobid repeat urinalysis unremarkable FABIOLA Continue CPAP at night GERD continue Prilosec Mood disorder Continue mood stabilizers Tobacco use disorder will place on nicotine patch 21 mg daily counseling done. On Valtrex for herpes prophylaxis DVT prophylaxis-Lovenox Full code change to admission due to acute hypoxic respiratory failure requiring oxygen and treatment for acute COPD exacerbation. Quality Stroke Does the patient have a stroke diagnosis?: No VTE Prior VTE?: No VTE Risk Level:: Medical - moderate - high VTE Device Contraindication: Treatment Not Indicated VTE Drug Contraindication: N/A - Med Ordered
[2023-11-18 16:20] LABS: Lithium 1.15 mmol/L (0.60-1.20)
[2023-11-18] MEDS: Nicotine 21 MG PATCH.TD24 TRANSDERMA (16:34)
[2023-11-18] MEDS: methylPREDNISolone Sod Succ 40 MG/ML VIAL IVPUSH ×2 (16:34→23:57)
[2023-11-18] MEDS: Albuterol/Iprat 2.5/0.5MG 3 ML AMPUL.NEB INHALE (17:42)
[2023-11-18] MEDS: Enoxaparin Sodium 40 MG/0.4 ML SYRINGE SUBCUT (21:32)
[2023-11-18] MEDS: rOPINIRole HCL 1 MG TABLET PO (21:32)
[2023-11-18] MEDS: OLANZapine 10 MG TABLET PO (21:32)
[2023-11-18] MEDS: cloNIDine HCL 0.1 MG TABLET PO (21:33)
[2023-11-18] MEDS: 0.9 % Sodium Chloride Flush 3 ML SYRINGE IVFLUSH (21:33)
[2023-11-18] MEDS: valACYclovir HCL 1,000 MG TABLET 1000 MG PO (21:50)
[2023-11-19] VITALS: BP 125/73; PULSE 70; RESP 20; TEMP 36.1; O2SAT 93
[2023-11-19 03:17] VITALS: BP 144/75; PULSE 84; RESP 20; TEMP 36.1; O2SAT 92
[2023-11-19] MEDS: Omeprazole 20 MG CAPSULE.DR PO (06:34)
[2023-11-19 07:14] VITALS: BP 152/92; PULSE 71; RESP 20; TEMP 36.7; O2SAT 94
[2023-11-19 07:54] VITALS: PULSE 77; RESP 18; O2SAT 90
[2023-11-19] MEDS: Tiotropium Bromide 2.5 mcg 1 PUFF/2.5 MCG MIST.INHAL 2 PUFF INHALE (07:54)
[2023-11-19] MEDS: Albuterol/Iprat 2.5/0.5MG 3 ML AMPUL.NEB INHALE ×2 (07:54→11:13)
[2023-11-19] MEDS: Nicotine 21 MG PATCH.TD24 TRANSDERMA (09:22)
[2023-11-19] MEDS: valACYclovir HCL 1,000 MG TABLET 1000 MG PO (09:24)
[2023-11-19] MEDS: Cyanocobalamin (Vitamin B-12) 1,000 MCG TABLET 1000 MCG PO (09:24)
[2023-11-19] MEDS: Lithium Carbonate ER 450 MG TABLET.ER PO (09:24)
[2023-11-19] MEDS: Ferrous Sulfate 324 MG TABLET.DR PO (09:24)
[2023-11-19] MEDS: Gabapentin 400 MG CAPSULE PO (09:24)
[2023-11-19] MEDS: 0.9 % Sodium Chloride Flush 3 ML SYRINGE IVFLUSH (09:25)
[2023-11-19] MEDS: methylPREDNISolone Sod Succ 40 MG/ML VIAL IVPUSH (09:25)
--- NOTE | 2023-11-19 10:10 | PM.DS ---
DS: Providers Provider Date of Service: 11/19/23 Date of admission: 11/18/23 15:45 Primary care physician: Mike Malone MD DS: Diagnosis Discharge Diagnosis (1) Orthostatic hypotension: Status: Acute (2) Near syncope: Status: Acute DS: Summary Hospital Course Hospital Course: 53-year-old female patient with past medical history significant for moderate persistent asthma, COPD, obstructive sleep apnea on CPAP, GERD, mood disorder, tobacco use disorder presented to [facility] due to dizziness, lightheadedness and shakiness that started this morning while she was in bed, VNA came on the door patient walked to open the door but she fell down , she denies loss of consciousness, no head injury, no trauma, she managed to crawl and open the door for the VNA,, she was given her morning medications but she continued to feel shaky, weak ,felt jumpy therefore came to the emergency room she denies associated fever, no chills has been compliant with all of her medications she was recently diagnosed to have UTI and took 1st dose of Macrobid this morning, denies shortness of breath, no cough, no sick contacts in the emergency room she had a normal CBC and BMP recent urine culture showed mixed organism, influenza, RSV and COVID test are negative, patient noted to have positive orthostatic blood pressures therefore will be admitted to [facility] with a diagnosis of near-syncope due to orthostatic hypotension. 53-year-old woman treated for orthostatic hypotension likely secondary to dehydration. Resolved on its own. No arrhythmia, normal neurology examination. She also was treated for acute hypoxic respiratory failure secondary to COPD and asthma. Initially she with with IV Solu-Medrol, DuoNebs. RSV, COVID flu negative. Chest x-ray negative for consolidation, no antibiotics needed. Patient this time is on room air without wheezing or cough. Urinalysis showed mixed bacteria, no need for antibiotics. Plan is to discharge home. FABIOLA Continue CPAP at night GERD continue Prilosec Mood disorder Continue mood stabilizers Tobacco use disorder discussed importance of smoking cessation On Valtrex for herpes prophylaxis Time Attestation Discharge coordination time: Greater than 30 minutes Quality: Safe Use of Opioids Does Pt have an Active Cancer Diagnosis on the Problem List?: No Quality: Stroke Does the patient have a stroke diagnosis?: No Physical Exam Vital Signs: Vital Signs: Last Vital Signs Temp 98.1 F 11/19/23 07:14 Pulse 77 11/19/23 07:54 Resp 18 11/19/23 07:54 BP 152/92 H 11/19/23 07:14 Pulse Ox 94 11/19/23 07:14 O2 Del Method Room Air 11/19/23 07:14 O2 Flow Rate 1 11/19/23 03:17 BMI result Body Mass Index 30.7 Appearing in no acute distress head is normocephalic atraumatic eyes pupils are PERRLA sclera is anicteric mouth throat mucous membranes are intact and moist neck is supple no lymphadenopathy, no JVD noted lung sounds are clear to auscultation heart regular rate rhythm, clear S1, S2 positive bowel sounds, abdomen is soft, nontender neuro patient is alert x3, no focal deficits DS: Data Data Completed and Pending Completed studies during hospitalization [Text1]: Procedures Assistance with Respiratory Ventilation, Less than 24 Consecutive Hours, Continuous Positive Airway Pressure (06/11/23) Drainage of Left Parotid Gland, Percutaneous Approach, Diagnostic (11/09/21) Drainage of Neck, Percutaneous Approach, Diagnostic (03/17/22) Excision of Left Parotid Gland, Percutaneous Approach, Diagnostic (03/17/22) Introduction of Remdesivir Anti-infective into Peripheral Vein, Percutaneous Approach, [employer] (06/01/22) Labs on day of discharge: Laboratory Results - last 24 hr 11/18/23 16:06 [place] 1.15 Discharge Plan Discharge Anticipated Discharge Date/Time: 11/19/23 10:12 Patient Disposition: Home, Self-Care Discharge Diagnosis: orthostatic hypotension copd/asthma exacerbation Referrals: Mike Malone MD [Primary Care Provider] - 1 Week Discharge Medications: Continued ropinirole 1 mg Tablet 1 mg PO BEDTIME Qty: 30 0RF olanzapine 10 mg Tablet 10 mg PO BEDTIME Qty: 30 0RF clonidine HCl 0.2 mg Tablet 0.2 mg PO BEDTIME Qty: 30 0RF Protocol: Hold for SBP< HOLD for SBP < : 90 albuterol sulfate [Ventolin HFA] 90 mcg/actuation Hfa Aerosol Inhaler 2 puff inhalation Q4H PRN (Reason: shortness of breath or wheezing) Qty: 6.7 0RF tiotropium bromide [Spiriva with HandiHaler] 18 mcg Capsule, W/Inhalation Device 18 mcg inhalation RDAILY Qty: 20 0RF ferrous sulfate 324 mg (65 mg iron) Tablet,Delayed Release (Dr/Ec) 324 mg PO DAILY Qty: 30 0RF omeprazole 20 mg Capsule,Delayed Release(Dr/Ec) 20 mg PO DAILY@0630 Qty: 30 0RF lithium carbonate 450 mg tablet extended release 450 mg PO TID cyanocobalamin (vitamin B-12) [Vitamin B-12] 1,000 mcg tablet 1,000 mcg PO DAILY ipratropium-albuterol 0.5 mg-3 mg(2.5 mg base)/3 mL solution for nebulization 3 ml inhalation RQ6H PRN (Reason: Shortness Of Breath Or Wheezing) gabapentin 400 mg Capsule 400 mg PO TID valacyclovir 1 gram tablet 1,000 mg PO BID Discontinued nitrofurantoin monohyd/m-cryst [Macrobid] 100 mg capsule 100 mg PO BID 5 Days Qty: 10 0RF Rx Instructions: must administer with a meal/food Discharge Orders: Discharge Order (Routine); Ordered 11/19/23 Ordered By: Carla Palmer Diet: Advance to usual diet Activity on Discharge: As tolerated Stand Alone Forms: Patient Portal Discharge page Care Plan Goals: Complete resolution symptoms Health Concerns: orthostatic hypotension copd/asthma exacerbation Plan of Treatment: Follow-up with primary care as needed Take all medications as prescribed Assessment: See discharge summary
[2023-11-19 11:13] VITALS: RESP 18; O2SAT 90
--- NOTE | 2023-11-19 13:54 | MHC.CM.PN ---
PT CLEARED TO DC HOME TODAY WITH RESUMPTION OF SERVICES DCS SENT TO [facility] WITH NOTICE OF DC LYFT TRANSPORT ARRANGED FOR PT
== END 2023-11-19 13:23 | disposition home or self-care (01) | DRG 204 ==
LOC: HO.ED 16:55 → HO.EDOVER 18:38 → HO.IMC 19:43
PROVIDERS: Admitting Provider Hospitalist; Emergency Provider Emergency Medicine; PCP Internal Medicine; Visit Provider Nurse Practitioner Acute Care
DX: I95.1 Orthostatic hypotension (principal); J96.01 Acute respiratory failure with hypoxia; J44.1 Chronic obstructive pulmonary disease with (acute) exacerbation; J45.41 Moderate persistent asthma with (acute) exacerbation; K21.9 Gastro-esophageal reflux disease without esophagitis; F17.210 Nicotine dependence, cigarettes, uncomplicated; F39 Unspecified mood [affective] disorder; G47.33 Obstructive sleep apnea (adult) (pediatric); E86.0 Dehydration; Z20.822 Contact with and (suspected) exposure to COVID-19; Z88.0 Allergy status to penicillin; Z88.2 Allergy status to sulfonamides; Z91.040 Latex allergy status; Z71.6 Tobacco abuse counseling; Z79.899 Other long term (current) drug therapy
CPT/HCPCS: 0241U; 36415; 70450; 71045; 73620; 80048; 80076; 80178; 81003; 83690; 83880; 84484; 85025; 85379; 93005; 94640; 94660; 99222; 99285; J1650; J2405; J2920; J2930

== ENCOUNTER → 2023-11-17 14:12 | Outpatient (BNV) | payer MEDICAID, SELFPAY | PROVIDERS: Emergency Provider Emergency Medicine; PCP Internal Medicine; Visit Provider Internal Medicine | DX: R42 Dizziness and giddiness (principal) | CPT/HCPCS: 93010 ==

== ENCOUNTER → 2023-11-17 18:23 | Outpatient (BNV) | payer MEDICAID, SELFPAY | PROVIDERS: Admitting Provider Hospitalist; Emergency Provider Emergency Medicine; PCP Internal Medicine; Visit Provider Hospitalist | DX: I95.1 Orthostatic hypotension (principal) | CPT/HCPCS: 99223; 99233; 99239 ==

== ENCOUNTER 2023-11-25 12:18 | Emergency (ER) | payer OTHER, MEDICAID, SELFPAY ==
--- NOTE | 2023-11-25 12:55 | ED_ITS ---
HPI - Psych General Chief Complaint: Psychiatric Symptoms Stated Complaint: SI AND WITHDRAWL FROM CRACK PER EMS Time Seen by Provider: 11/25/23 12:23 Source: patient and EMS Mode of arrival: EMS Limitations: no limitations History of Present Illness HPI Narrative: Patient is a 53-year-old female with history of bipolar disorder, COPD, fibromyalgia presenting to the emergency department with complaint of suicidal ideation and depression for the past week. Patient reports that her plan is to overdose on her medications. She states that she is administered medications by staff at her home but that the medications are left out and are available to her to take at any time. Denies any homicidal ideation, auditory or visual hallucinations. Complains of bilateral leg pain and states she missed her noon dose of gabapentin. Denies any chest pain, palpitations, dyspnea. MD complaint: suicidal ideation and feels depressed Onset (ago): week(s) Duration: constant History of same: Yes Associated psychiatric symptoms: depression Associated symptoms: other (bilateral leg pain/cramping) If self harm: admits thoughts of self harm, has plan and intentional overdose Related Data Home Medications Medication Instructions Recorded Confirmed lithium carbonate 450 mg 450 mg PO TID 05/14/23 11/17/23 tablet,extended release cyanocobalamin (vitamin B-12) 1,000 mcg PO DAILY 06/11/23 11/17/23 1,000 mcg tablet (Vitamin B-12) ipratropium 0.5 mg-albuterol 3 mg 3 ml inhalation RQ6H PRN Shortness 06/11/23 11/17/23 (2.5 mg base)/3 mL nebulization Of Breath Or Wheezing soln gabapentin 400 mg capsule 400 mg PO TID 10/24/23 11/17/23 valacyclovir 1 gram tablet 1,000 mg PO BID 11/17/23 11/17/23 Previous Rx's Medication Instructions Recorded albuterol sulfate 90 mcg/actuation 2 puff inhalation Q4H PRN 03/22/23 aerosol inhaler (Ventolin HFA) shortness of breath or wheezing #6.7 grams clonidine HCl 0.2 mg tablet 0.2 mg PO BEDTIME #30 tabs 03/22/23 ferrous sulfate 324 mg (65 mg 324 mg PO DAILY #30 tabs 03/22/23 iron) tablet,delayed release olanzapine 10 mg tablet 10 mg PO BEDTIME #30 tabs 03/22/23 omeprazole 20 mg capsule,delayed 20 mg PO DAILY@0630 #30 caps 03/22/23 release ropinirole 1 mg tablet 1 mg PO BEDTIME #30 tabs 03/22/23 tiotropium bromide 18 mcg capsule 18 mcg inhalation RDAILY #20 03/22/23 with inhalation device (Spiriva inhalations with HandiHaler) Allergies Allergy/AdvReac Type Severity Reaction Status Date / Time aspirin Allergy Mild Anaphylaxis Verified 11/12/23 06:31 ampicillin Allergy Rash Verified 11/12/23 06:31 Penicillins Allergy Anaphylaxis Verified 11/12/23 06:31 latex AdvReac Rash Verified 11/12/23 06:31 Latex, Natural Rubber AdvReac Rash Verified 11/12/23 06:31 seafood AdvReac Anaphylaxis Verified 11/12/23 06:31 Sulfa (Sulfonamide AdvReac Hives Verified 11/12/23 06:31 Antibiotics) Review of Systems 2 Review of Systems: As per HPI. Yes all other systems are reviewed and are negative Constitutional: Constitutional: Reports as per HPI [facility] Past Medical History Medical History Overdose on Tylenol Suicide attempt Asthma COPD (chronic obstructive pulmonary disease) Chronic lung disease Neoplasm of parotid gland Depression 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 Drug abuse Bipolar I disorder Post traumatic stress disorder (PTSD) Tobacco use disorder FABIOLA (obstructive sleep apnea) Borderline personality disorder Intermittent explosive disorder Asthma exacerbation in COPD Herpes Tobacco use Bipolar disorder COPD (chronic obstructive pulmonary disease) Surgical History History of ankle surgery History of back surgery Hx of cholecystectomy History of appendectomy Family History Family History Mother COPD (chronic obstructive pulmonary disease) Social History Social History Household Members: None Household Members Other:: [employer] in [place] Housing: Apartment Housing Other:: Sleeps on the couch at [facility] house Do you presently have visiting nurse or other home services: Yes ([facility] nurse daily for meds.) Unable to assess alcohol history related to: Unknown Alcohol intake: current Alcohol intake frequency: holidays/special occasions only Alcohol type: hard liquor Comment: pt has sitter in room Patient Tobacco Use Status: Current everyday Tobacco user Tobacco use type: Cigarette Cigarette Packs Per Day: 1 Cigarettes Per Day: 8 Years Smoked: 40 Smoked in Last 30 Days: Yes e-Cigarette/Vaping Use: Never Used Second Hand Smoke Exposure: Yes Use of substances other than those prescribed or required for medical reasons: No Substance Use Type: Crack/Cocaine Advance Directives: Yes Advance Directives on File: Yes Advance Directives Date on File: 06/17/22 Patient : No service: No Current occupational status: unemployed and disabled Sexual orientation: Straight/Heterosexual Physical Exam 2 Vital Signs: Vital Signs: Last Vital Signs Temp 97.1 F 11/25/23 12:59 Pulse 94 11/25/23 12:59 Resp 16 11/25/23 12:59 BP 130/79 11/25/23 12:59 Pulse Ox 94 11/25/23 12:59 O2 Del Method Room Air 11/25/23 12:59 BMI result Body Mass Index 99.0 Vital signs have been reviewed and appear to be correct. Blood pressure normal. Heart rate normal. Respiratory rate normal. Temperature normal. Oxygen saturation normal. Const: General: cooperative, healthy appearing and no acute distress O rientation/consciousness: oriented to person, oriented to place, oriented to time and patient oriented x3 Limitations: no limitations HEENT: Head: Yes normocephalic and Yes atraumatic Ears: external ears normal General nose exam: Normal external nose present Face and sinus: Yes face symmetric Mouth: oropharynx normal and moist mucous membranes Throat: Yes uvula midline Eyes: Pupils: Equal, round and reactive pupils present Neck: Neck: Yes normal visual inspection and Yes supple Resp: Effort & Inspection: normal respiratory effort and able to speak in complete sentences Auscultation: clear to auscultation bilaterally Cardio: Rate: regular rate Rhythm: regular rhythm Heart sounds: S1 normal heart sound present and S2 normal heart sound present GI: Palpation (GI): Soft to palpation and nontender Auscultation: n ormoactive bowel sounds : General: Yes no CVA tenderness Back/Spine/Pelvis: Back: no CVA tenderness Skin: General skin exam: elasticity normal and turgor normal Neuro: General: oriented to person, oriented to place, oriented to time, patient oriented x3, moves all extremities, no focal motor deficits and CN's II- XI intact bilaterally Cranial nerves: Yes Equal, round and reactive pupils present Cognition (Neuro): normal cognition Extrem: General: Yes full ROM, Yes no pedal edema and Yes no calf tenderness Psych: Mental Status: mental status grossly normal Speech and movement: N ormal speech and movement present Affect: normal affect Attitude: c ooperative Thought process: Normal thought process present Thought content: Suicidality present, no homicidality, no hallucinations and Depressive thoughts present Insight: Fair insight present (Psych) Judgement: Fair judgement present (Psych) Course Course Course Narrative: Patient evaluated by CARE team who recommended discharge. Patient cleared for discharge. Medications Administered Discontinued Medications Generic Name Dose Route Start Last Admin Trade Name Freq PRN Reason Stop Dose Admin Gabapentin 400 mg 11/25/23 13:01 11/25/23 13:27 Gabapentin 400 Mg Capsule PO 11/25/23 13:02 400 mg ONCE ONE Administration Medical Decision Making Medical Decision Making [facility] Narrative: Patient is a 53-year-old female with history of bipolar disorder, COPD, fibromyalgia presenting to the emergency department with complaint of suicidal ideation and depression for the past week. On exam patient is awake, A+Ox3, VS WNL, afebrile, normal neurological exam without focal deficits, physical exam findings as above. Given reported symptoms and physical exam findings, initial differential includes depression, anxiety, suicidal ideation. Plan: medical clearace, CARE team evaluation, will order patient's noon dose of gabapentin Labs unremarkable. No evidence of infection on urinalysis, urine drug screen negative. EKG shows normal sinus rhythm. COVID negative. Will clear patient medically at this time for care team evaluation. Will place on physician observation. Differential Diagnosis Differential Diagnoses: The differential diagnosis associated with the presentation includes As per [facility]. Lab Data [facility] Lab Attestation statement: I reviewed the patient's lab results. As per [facility]. 11/25/23 14:30 11/25/23 14:30 Labs: Lab Results 11/25/23 11/25/23 Range/Units 13:15 14:30 WBC 9.3 (4.8-10.8) X10*3/uL RBC 4.75 (4.20-5.50) X10*6/uL Hgb 14.7 (12.0-16.0) g/dl Hct 46.6 (37.0-47.0) % MCV 98.1 H (80.0-98.0) fL MCH 30.9 (27.0-33.0) pg MCHC 31.5 (31.0-35.0) g/dl RDW 12.8 (11.0-16.0) % Plt Count 309 (160-400) X10*3/uL MPV 9.9 (9.4-12.3) fL Immature Gran % (Auto) 0.5 H (0.0-0.4) % Neut % (Auto) 65.4 (45-73) % Lymph % (Auto) 25.6 (20-40) % [place] % (Auto) 5.2 (2-11) % Eos % (Auto) 2.4 (0-4) % Baso % (Auto) 0.9 (0-2) % Lymph # (Auto) 2.4 (1.2-4.9) X10*3/uL [place] # (Auto) 0.5 (0.1-1.2) X10*3/uL Eos # (Auto) 0.2 (0.0-0.4) X10*3/uL Baso # (Auto) 0.1 (0.0-0.2) X10*3/uL Abs Immat Gran (auto) 0.05 H (0.00-0.03) X10*3/uL Absolute Neuts (auto) 6.1 (2.0-8.3) x10*3/uL Absolute Nucleated RBC 0.000 (0.0-0.012) X10*3/uL Nucleated RBC % (auto) 0.0 (0.0-0.2) /100WBC Sodium 139 (135-145) mmol/L Potassium 4.2 (3.3-5.1) mmol/L Chloride 104 (96-108) mmol/L Carbon Dioxide 26 (22-29) mmol/L Anion Gap 13 (12-20) BUN 11 (9-16) mg/dL Creatinine 0.84 (0.5-1.4) mg/dL Estim Creat Clear Calc 175.9 Estimated GFR > 60 Random Glucose 119 H (60-115) mg/dL Calcium 10.0 (8.4-10.2) mg/dL Urine Color Yellow Urine Appearance Clear Urine pH 8.0 (5.0-9.0) Ur Specific [place] 1.010 (1.005-1.025) Urine Protein Negative (Neg-Trace) mg/dL Urine Glucose (UA) Negative (Negative) mg/dL Urine Ketones Negative (Negative) mg/dL Urine Blood Negative (Negative) Urine Nitrite Negative (Negative) Ur Leukocyte Esterase Negative (Negative) Urine Opiates Screen Not Detected (Not Detect) Urine Fentanyl Screen Not Detected (Not Detect) Ur Barbiturates Screen Not Detected (Not Detect) Ur Phencyclidine Scrn Not Detected (Not Detect) Ur Amphetamines Screen Not Detected (Not Detect) U Benzodiazepines Scrn Not Detected (Not Detect) Urine Cocaine Screen Not Detected (Not Detect) U Marijuana (THC) Screen Not Detected (Not Detect) Ethyl Alcohol < 10 mg/dL COVID-19 (ENDY) Negative (Negative) COVID-19 Clin Com See Note Independent Interpretation I performed an independent interpretation of an: EKG (normal sinus rhythm, rate 88bpm, normal [place] interval and QTc) External Record Review External record reviewed: Inpatient record, Office record and Outpatient record Discharge Plan Discharge Clinical Impression: Suicidal ideation Patient Disposition: Home, Self-Care Instructions: Suicide Prevention (ED) Additional Instructions: Follow up with your primary care provider. Return to the emergency department immediately if your symptoms worsen or if you develop any dizziness, shortness of breath, difficulty breathing, chest pain, blurry vision, loss of vision, nausea, vomiting, abdominal pain, fever, chills, back pain, or any other complaints. [facility] at [facility]: [address], [place] [id number] Walk in hours from 10am - 12pm Open from 10am - 12pm [facility] Crisis Services: [address] [place] [address] Walk in hours from 10am - 12pm Open 23/05 [facility]: [address] [place] [id number] [address] [place] [id number] Hours: M-F 8am to 8pm Tuesday and Tuesday 9am to 5pm Prescriptions: No Action ropinirole 1 mg Tablet 1 mg PO BEDTIME Qty: 30 0RF olanzapine 10 mg Tablet 10 mg PO BEDTIME Qty: 30 0RF clonidine HCl 0.2 mg Tablet 0.2 mg PO BEDTIME Qty: 30 0RF Protocol: Hold for SBP< HOLD for SBP < : 90 albuterol sulfate [Ventolin HFA] 90 mcg/actuation Hfa Aerosol Inhaler 2 puff inhalation Q4H PRN (Reason: shortness of breath or wheezing) Qty: 6.7 0RF tiotropium bromide [Spiriva with HandiHaler] 18 mcg Capsule, W/Inhalation Device 18 mcg inhalation RDAILY Qty: 20 0RF ferrous sulfate 324 mg (65 mg iron) Tablet,Delayed Release (Dr/Ec) 324 mg PO DAILY Qty: 30 0RF omeprazole 20 mg Capsule,Delayed Release(Dr/Ec) 20 mg PO DAILY@0630 Qty: 30 0RF lithium carbonate 450 mg tablet extended release 450 mg PO TID cyanocobalamin (vitamin B-12) [Vitamin B-12] 1,000 mcg tablet 1,000 mcg PO DAILY ipratropium-albuterol 0.5 mg-3 mg(2.5 mg base)/3 mL solution for nebulization 3 ml inhalation RQ6H PRN (Reason: Shortness Of Breath Or Wheezing) gabapentin 400 mg Capsule 400 mg PO TID valacyclovir 1 gram tablet 1,000 mg PO BID
--- NOTE | 2023-11-25 12:56 | ECG_ITS ---
Test Reason : MED CLEARANCE Blood Pressure : / mmHG Vent. Rate : 088 BPM Atrial Rate : 088 BPM P-R Int : 140 ms QRS Dur : 080 ms QT Int : 356 ms P-R-T Axes : 012 014 010 degrees QTc Int : 430 ms Normal sinus rhythm Normal ECG When compared with ECG of 17-NOV-2023 14:51, No significant change was found Referred By: Princess Calle Electronically Signed By:Deangelo Gutierres
[2023-11-25 12:59] VITALS: BP 130/79; BP 136/76; PULSE 94; PULSE 96; RESP 16; TEMP 36.2; O2SAT 94; O2SAT 96; BMI 99.0
[2023-11-25 13:22] LABS: Appearance Urine Clear; Color Urine Yellow; Glucose Urine UA Negative (Negative); Leukocyte Esterase Urine Negative (Negative); Nitrite Urine Negative (Negative); Urine Blood Negative (Negative); Urine Ketones Negative (Negative); Urine Protein Negative (Neg-Trace)
[2023-11-25] MEDS: Gabapentin 400 MG CAPSULE PO (13:27)
[2023-11-25 13:41] LABS: Amphetamine Screen Urine Not Detected (Not Detect); Barbiturates, Urine Not Detected (Not Detect); Benzodiazepines Screen Urine Not Detected (Not Detect); Cannabinoid Screen Urine Not Detected (Not Detect); Cocaine Screen Urine Not Detected (Not Detect); Fentanyl, urine Not Detected (Not Detect); Opiate Screen Urine Not Detected (Not Detect); Phencyclidine Screen Urine Not Detected (Not Detect)
--- NOTE | 2023-11-25 13:45 | PC.NURSE ---
PT SEEN BY JUAN (KAREN) PT AWARE OF PLAN OF CARE.
[2023-11-25 14:36] LABS: MANUAL DIFF FLAG NO
[2023-11-25 14:49] LABS: Basophils Absolute Auto 0.1 X10*3/uL (0.0-0.2); Basophils Percent Auto 0.9 % (0-2); Eosinophils Absolute Auto 0.2 X10*3/uL (0.0-0.4); Eosinophils Percent Auto 2.4 % (0-4); Hematocrit 46.6 % (37.0-47.0); Hemoglobin 14.7 g/dl (12.0-16.0); Imm Gran Abs Auto 0.05 X10*3/uL (0.00-0.03); Imm Gran Pct Auto 0.5 % (0.0-0.4); Lymphocytes Absolute Auto 2.4 X10*3/uL (1.2-4.9); Lymphocytes Percent Auto 25.6 % (20-40); Mean Corpuscular HGB Conc 31.5 g/dl (31.0-35.0); Mean Corpuscular Hemoglobin 30.9 pg (27.0-33.0); Mean Corpuscular Volume 98.1 fL (80.0-98.0); Mean Platelet Volume 9.9 fL (9.4-12.3); Monocytes Absolute Auto 0.5 X10*3/uL (0.1-1.2); Monocytes Percent Auto 5.2 % (2-11); Neutrophils Absolute Auto 6.1 x10*3/uL (2.0-8.3); Neutrophils Percent Auto 65.4 % (45-73); Platelet Count 309 X10*3/uL (160-400); Red Blood Count 4.75 X10*6/uL (4.20-5.50); Red Cell Distribution Width 12.8 % (11.0-16.0); White Blood Count 9.3 X10*3/uL (4.8-10.8)
[2023-11-25 15:01] LABS: Anion Gap 13 (12-20); Blood Urea Nitrogen 11 mg/dL (9-16); Carbon Dioxide 26 mmol/L (22-29); Chloride 104 mmol/L (96-108); Creatinine Clr Calc Pharmacy 175.9; Estimated Glomerular Filt Rate > 60; Ethanol < 10 mg/dL; Glucose Random 119 mg/dL (60-115); Potassium 4.2 mmol/L (3.3-5.1); Sodium 139 mmol/L (135-145)
[2023-11-25 15:08] LABS: COVID-19 Test Negative (Negative); IDNOW Serial# 152EDE1D
--- NOTE | 2023-11-25 17:29 | PC.NURSE ---
resting quietly in Pod. chatting with other patients. NAD. currently with CARE team.
--- NOTE | 2023-11-25 21:13 | PC.NURSE ---
assumed care of pt at 1900.
== END 2023-11-25 20:13 | disposition home or self-care (01) ==
PROVIDERS: Registered Nurse Emergency; Emergency Provider Emergency Medicine; PCP Internal Medicine
DX: R45.851 Suicidal ideations (principal); F31.9 Bipolar disorder, unspecified; F43.10 Post-traumatic stress disorder, unspecified; F41.9 Anxiety disorder, unspecified; F60.3 Borderline personality disorder; F17.210 Nicotine dependence, cigarettes, uncomplicated; Z11.52 Encounter for screening for COVID-19
CPT/HCPCS: 80048; 80307; 81003; 85025; 87635; 93005; 99284; S9485

== ENCOUNTER → 2023-11-25 12:56 | Outpatient (BNV) | payer MEDICAID, SELFPAY | PROVIDERS: Emergency Provider Emergency Medicine; PCP Internal Medicine; Visit Provider Internal Medicine Cardiovascular Disease | DX: R45.851 Suicidal ideations (principal) | CPT/HCPCS: 93010 ==

== ENCOUNTER 2023-11-30 15:59 | Emergency (ER) | payer MEDICAID, OTHER, SELFPAY ==
[2023-11-30 16:11] VITALS: BP 126/72; PULSE 79; RESP 18; TEMP 36.6; O2SAT 94; BMI 48.4
[2023-11-30 16:40] LABS: Appearance Urine Cloudy; Color Urine Yellow; Glucose Urine UA Negative (Negative); Leukocyte Esterase Urine Negative (Negative); Nitrite Urine Negative (Negative); Specific Gravity - Urine 1.015 (1.005-1.025); Urine Blood Negative (Negative); Urine Ketones Negative (Negative); Urine Protein Negative (Neg-Trace)
[2023-11-30 16:44] LABS: COVID-19 Test Negative (Negative); IDNOW Serial# 16C4AD1C
[2023-11-30 16:55] LABS: Amphetamine Screen Urine Not Detected (Not Detect); Barbiturates, Urine Not Detected (Not Detect); Benzodiazepines Screen Urine Not Detected (Not Detect); Cannabinoid Screen Urine Not Detected (Not Detect); Cocaine Screen Urine Not Detected (Not Detect); Fentanyl, urine Not Detected (Not Detect); Opiate Screen Urine Not Detected (Not Detect); Phencyclidine Screen Urine Not Detected (Not Detect)
[2023-11-30 16:58] LABS: MANUAL DIFF FLAG NO
[2023-11-30 17:03] LABS: Basophils Absolute Auto 0.1 X10*3/uL (0.0-0.2); Basophils Percent Auto 0.9 % (0-2); Eosinophils Absolute Auto 0.2 X10*3/uL (0.0-0.4); Eosinophils Percent Auto 1.4 % (0-4); Hematocrit 47.5 % (37.0-47.0); Hemoglobin 15.2 g/dl (12.0-16.0); Imm Gran Abs Auto 0.07 X10*3/uL (0.00-0.03); Imm Gran Pct Auto 0.6 % (0.0-0.4); Lymphocytes Absolute Auto 2.4 X10*3/uL (1.2-4.9); Lymphocytes Percent Auto 21.8 % (20-40); Mean Corpuscular Hemoglobin 30.7 pg (27.0-33.0); Mean Platelet Volume 9.7 fL (9.4-12.3); Monocytes Absolute Auto 0.5 X10*3/uL (0.1-1.2); Monocytes Percent Auto 4.8 % (2-11); Neutrophils Absolute Auto 7.7 x10*3/uL (2.0-8.3); Neutrophils Percent Auto 70.5 % (45-73); Platelet Count 282 X10*3/uL (160-400); Red Blood Count 4.95 X10*6/uL (4.20-5.50); Red Cell Distribution Width 12.5 % (11.0-16.0)
[2023-11-30 17:17] LABS: Alanine Aminotransferase 13 U/L (0-31); Albumin Level 4.3 g/dL (3.5-5.0); Alkaline Phosphatase 68 U/L (39-117); Anion Gap 10 (12-20); Aspartate Amino Transferase 12 U/L (5-31); Bilirubin Direct < 0.2 mg/dL (0.0-0.5); Bilirubin Total 0.2 mg/dL (0.0-1.0); Blood Urea Nitrogen 10 mg/dL (9-16); Calcium 9.7 mg/dL (8.4-10.2); Carbon Dioxide 31 mmol/L (22-29); Chloride 103 mmol/L (96-108); Creatinine Clr Calc Pharmacy 116.9; Estimated Glomerular Filt Rate > 60; Ethanol < 10 mg/dL; Glucose Random 103 mg/dL (60-115); Potassium 4.2 mmol/L (3.3-5.1); Sodium 140 mmol/L (135-145); Total Protein 7.3 g/dL (6.5-8.0)
--- NOTE | 2023-11-30 17:41 | ED_ITS ---
HPI - Psych General Chief Complaint: Psychiatric Symptoms Stated Complaint: CRISIS SI Time Seen by Provider: 11/30/23 16:11 Source: patient Mode of arrival: EMS Limitations: no limitations History of Present Illness HPI Narrative: Patient comes to the emergency room complaining of suicidal thoughts, planning to overdose on her medications. Patient states that she did not take any medications or any illicit drugs or alcohol prior to arrival. Otherwise feeling well Related Data Home Medications Medication Instructions Recorded Confirmed lithium carbonate 450 mg 450 mg PO TID 05/14/23 11/25/23 tablet,extended release cyanocobalamin (vitamin B-12) 1,000 mcg PO DAILY 06/11/23 11/25/23 1,000 mcg tablet (Vitamin B-12) ipratropium 0.5 mg-albuterol 3 mg 3 ml inhalation RQ6H PRN Shortness 06/11/23 11/25/23 (2.5 mg base)/3 mL nebulization Of Breath Or Wheezing soln gabapentin 400 mg capsule 400 mg PO TID 10/24/23 11/25/23 valacyclovir 1 gram tablet 1,000 mg PO BID 11/17/23 11/17/23 Previous Rx's Medication Instructions Recorded albuterol sulfate 90 mcg/actuation 2 puff inhalation Q4H PRN 03/22/23 aerosol inhaler (Ventolin HFA) shortness of breath or wheezing #6.7 grams clonidine HCl 0.2 mg tablet 0.2 mg PO BEDTIME #30 tabs 03/22/23 ferrous sulfate 324 mg (65 mg 324 mg PO DAILY #30 tabs 03/22/23 iron) tablet,delayed release olanzapine 10 mg tablet 10 mg PO BEDTIME #30 tabs 03/22/23 omeprazole 20 mg capsule,delayed 20 mg PO DAILY@0630 #30 caps 03/22/23 release ropinirole 1 mg tablet 1 mg PO BEDTIME #30 tabs 03/22/23 tiotropium bromide 18 mcg capsule 18 mcg inhalation RDAILY #20 03/22/23 with inhalation device (Spiriva inhalations with HandiHaler) Allergies Allergy/AdvReac Type Severity Reaction Status Date / Time aspirin Allergy Mild Anaphylaxis Verified 11/12/23 06:31 ampicillin Allergy Rash Verified 11/12/23 06:31 Penicillins Allergy Anaphylaxis Verified 11/12/23 06:31 latex AdvReac Rash Verified 11/12/23 06:31 Latex, Natural Rubber AdvReac Rash Verified 11/12/23 06:31 seafood AdvReac Anaphylaxis Verified 11/12/23 06:31 Sulfa (Sulfonamide AdvReac Hives Verified 11/12/23 06:31 Antibiotics) Review of Systems 2 Review of Systems: Constitutional : No Weight loss, No Fever, No Chills, No Night Sweats, No Fatigue, No Malaise ENT/Mouth : No Hearing loss, No Ear Pain, No Nasal Congestion, No Sinus Pain, No Hoarseness, No sore throat, No Rhinorrhea, No Swallowing Difficulty Eyes: No Eye Pain, No Swelling, No Redness, No Foreign Body, No Discharge, No Vision Changes Cardiovascular : No Chest Pain, No SOB, No Dyspnea on Exertion, No Orthopnea, No Edema, No Palpitations Respiratory : No Cough, No Sputum, No Wheezing, No Smoke Exposure, No Dyspnea Gastrointestinal : No Nausea, No Vomiting, No Diarrhea, No Constipation, No abdominal Pain, No Hematochezia, No Melena Genitourinary : no irregular bleeding, No Dysuria, No Urinary Frequency, No Hematuria, No Urinary Incontinence, No Urgency, No Flank Pain, No Urinary Flow Changes, No Hesitancy Musculoskeletal : No joint pain, No Myalgias, No Joint Swelling Skin : No Skin Lesions, No rash Neuro : No Weakness, No Numbness, No Paresthesias, No Loss of Consciousness, No Dizziness, No Headache Psych : No Anxiety/Panic, No Depression, complaining of suicidal ideation, no homicidal ideation Heme/Lymph: No Bruising, No Bleeding,No Lymphadenopathy Endocrine : No Polyuria, No Polydipsia, No Temperature Intolerance [facility] Past Medical History Medical History Overdose on Tylenol Suicide attempt Asthma COPD (chronic obstructive pulmonary disease) Chronic lung disease Neoplasm of parotid gland Depression 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 Drug abuse Bipolar I disorder Post traumatic stress disorder (PTSD) Tobacco use disorder FABIOLA (obstructive sleep apnea) Borderline personality disorder Intermittent explosive disorder Asthma exacerbation in COPD Herpes Tobacco use Bipolar disorder COPD (chronic obstructive pulmonary disease) Surgical History History of ankle surgery History of back surgery Hx of cholecystectomy History of appendectomy Family History Family History Mother COPD (chronic obstructive pulmonary disease) Social History Social History Household Members: None Household Members Other:: [facility] [place] Housing: Apartment Housing Other:: Sleeps on the couch at [facility] house Do you presently have visiting nurse or other home services: Yes ([facility] nurse daily for meds.) Unable to assess alcohol history related to: Unknown Alcohol intake: current Alcohol intake frequency: holidays/special occasions only Alcohol type: hard liquor Comment: pt has sitter in room Patient Tobacco Use Status: Current everyday Tobacco user Tobacco use type: Cigarette Cigarette Packs Per Day: 1 Cigarettes Per Day: 8 Years Smoked: 40 Smoked in Last 30 Days: Yes e-Cigarette/Vaping Use: Never Used Second Hand Smoke Exposure: Yes Use of substances other than those prescribed or required for medical reasons: No Substance Use Type: Crack/Cocaine Advance Directives: Yes Advance Directives on File: Yes Advance Directives Date on File: 06/17/22 Patient : No service: No Current occupational status: unemployed and disabled Sexual orientation: Straight/Heterosexual Physical Exam 2 Vital Signs: Vital Signs: Last Vital Signs Temp 97.8 F 11/30/23 16:11 Pulse 79 11/30/23 16:11 Resp 18 11/30/23 16:11 BP 126/72 11/30/23 16:11 Pulse Ox 94 11/30/23 16:11 O2 Del Method Room Air 11/30/23 16:11 BMI result Body Mass Index 48.4 Const: Other: Appearance: Alert. Oriented X3. No acute distress. Eyes: Pupils equal, round and reactive to light. ENT: Pharynx normal. Neck: Normal inspection. Neck supple. No lymph nodes noted. No crepitus CVS: Normal heart rate and rhythm. Pulses normal. Normal S1 and S2 Respiratory: No respiratory distress. Breath sounds normal. No Wheezing. No rales Abdomen: Soft and nontender. No rigidity. No distention. Skin: Skin warm and dry. Normal skin color. Normal skin turgor. Extremities: No lower extremity edema. No Lacerations. No Rash Neuro: Oriented X 3. No motor deficit. No sensory deficit. Moving all extremities. No slurred speech. CN 2 through 12 grossly intact Psych: calm, cooperative, normal affect Medical Decision Making Medical Decision Making MDM Narrative: -my interpretation of labs: White blood cell count slightly elevated, patient has a URI, otherwise hematology is normal, no significant electrolyte abnormalities, chemistry normal, urinalysis negative, U tox negative, ETOH negative -care team evaluated the patient. Patient will be returning home. Patient agrees with plan. At this time, patient no longer suicidal, states she has no intention of hurting herself in any way. Differential Diagnosis Differential Diagnoses: The differential diagnosis associated with the presentation includes (Anxiety, depression, SI) Admission/Observation Consideration of admission/observation: Escalation of care including admission/observation considered (Care team consult pending) Lab Data 11/30/23 16:52 11/30/23 16:52 Labs: Lab Results 11/30/23 11/30/23 11/30/23 Range/Units 16:16 16:30 16:52 WBC 11.0 H (4.8-10.8) X10*3/uL RBC 4.95 (4.20-5.50) X10*6/uL Hgb 15.2 (12.0-16.0) g/dl Hct 47.5 H (37.0-47.0) % MCV 96.0 (80.0-98.0) fL MCH 30.7 (27.0-33.0) pg MCHC 32.0 (31.0-35.0) g/dl RDW 12.5 (11.0-16.0) % Plt Count 282 (160-400) X10*3/uL MPV 9.7 (9.4-12.3) fL Immature Gran % (Auto) 0.6 H (0.0-0.4) % Neut % (Auto) 70.5 (45-73) % Lymph % (Auto) 21.8 (20-40) % [place] % (Auto) 4.8 (2-11) % Eos % (Auto) 1.4 (0-4) % Baso % (Auto) 0.9 (0-2) % Lymph # (Auto) 2.4 (1.2-4.9) X10*3/uL [place] # (Auto) 0.5 (0.1-1.2) X10*3/uL Eos # (Auto) 0.2 (0.0-0.4) X10*3/uL Baso # (Auto) 0.1 (0.0-0.2) X10*3/uL Abs Immat Gran (auto) 0.07 H (0.00-0.03) X10*3/uL Absolute Neuts (auto) 7.7 (2.0-8.3) x10*3/uL Absolute Nucleated RBC 0.000 (0.0-0.012) X10*3/uL Nucleated RBC % (auto) 0.0 (0.0-0.2) /100WBC Sodium 140 (135-145) mmol/L Potassium 4.2 (3.3-5.1) mmol/L Chloride 103 (96-108) mmol/L Carbon Dioxide 31 H (22-29) mmol/L Anion Gap 10 L (12-20) BUN 10 (9-16) mg/dL Creatinine 0.80 (0.5-1.4) mg/dL Estim Creat Clear Calc 116.9 Estimated GFR > 60 Random Glucose 103 (60-115) mg/dL Calcium 9.7 (8.4-10.2) mg/dL Total Bilirubin 0.2 (0.0-1.0) mg/dL Direct Bilirubin < 0.2 (0.0-0.5) mg/dL AST 12 (5-31) U/L ALT 13 (0-31) U/L Alkaline Phosphatase 68 (39-117) U/L Total Protein 7.3 (6.5-8.0) g/dL Albumin 4.3 (3.5-5.0) g/dL Urine Color Yellow Urine Appearance Cloudy Urine pH 7.0 (5.0-9.0) Ur Specific [place] 1.015 (1.005-1.025) Urine Protein Negative (Neg-Trace) mg/dL Urine Glucose (UA) Negative (Negative) mg/dL Urine Ketones Negative (Negative) mg/dL Urine Blood Negative (Negative) Urine Nitrite Negative (Negative) Ur Leukocyte Esterase Negative (Negative) Urine Opiates Screen Not Detected (Not Detect) Urine Fentanyl Screen Not Detected (Not Detect) Ur Barbiturates Screen Not Detected (Not Detect) Ur Phencyclidine Scrn Not Detected (Not Detect) Ur Amphetamines Screen Not Detected (Not Detect) U Benzodiazepines Scrn Not Detected (Not Detect) Urine Cocaine Screen Not Detected (Not Detect) U Marijuana (THC) Screen Not Detected (Not Detect) Ethyl Alcohol < 10 mg/dL COVID-19 (ENDY) Negative (Negative) COVID-19 Clin Com See Note Discharge Plan Discharge Clinical Impression: Anxiety Patient Disposition: Home, Self-Care Instructions: Anxiety (ED) Additional Instructions: You tested negative for COVID. Please follow-up with your primary care physician tomorrow. If you have any worsening or new symptoms, please return to the emergency room or call 911 Prescriptions: No Action ropinirole 1 mg Tablet 1 mg PO BEDTIME Qty: 30 0RF olanzapine 10 mg Tablet 10 mg PO BEDTIME Qty: 30 0RF clonidine HCl 0.2 mg Tablet 0.2 mg PO BEDTIME Qty: 30 0RF Protocol: Hold for SBP< HOLD for SBP < : 90 albuterol sulfate [Ventolin HFA] 90 mcg/actuation Hfa Aerosol Inhaler 2 puff inhalation Q4H PRN (Reason: shortness of breath or wheezing) Qty: 6.7 0RF tiotropium bromide [Spiriva with HandiHaler] 18 mcg Capsule, W/Inhalation Device 18 mcg inhalation RDAILY Qty: 20 0RF ferrous sulfate 324 mg (65 mg iron) Tablet,Delayed Release (Dr/Ec) 324 mg PO DAILY Qty: 30 0RF omeprazole 20 mg Capsule,Delayed Release(Dr/Ec) 20 mg PO DAILY@0630 Qty: 30 0RF lithium carbonate 450 mg tablet extended release 450 mg PO TID cyanocobalamin (vitamin B-12) [Vitamin B-12] 1,000 mcg tablet 1,000 mcg PO DAILY ipratropium-albuterol 0.5 mg-3 mg(2.5 mg base)/3 mL solution for nebulization 3 ml inhalation RQ6H PRN (Reason: Shortness Of Breath Or Wheezing) gabapentin 400 mg Capsule 400 mg PO TID valacyclovir 1 gram tablet 1,000 mg PO BID Interventions: [place]-Suicide Risk Severity Scale Last Done: 11/30/23 16:13
--- NOTE | 2023-11-30 22:37 | MHC.CARE ---
CARE Team evaluation complete. Pt will discharge home via lyft. [facility] referral faxed and activated. [facility] reports that they will follow up with Pt tomorrow 12/01/23.
== END 2023-11-30 20:51 | disposition home or self-care (01) ==
PROVIDERS: Emergency Provider Emergency Medicine
DX: F41.9 Anxiety disorder, unspecified (principal); R45.851 Suicidal ideations; Z11.52 Encounter for screening for COVID-19; F31.9 Bipolar disorder, unspecified; F43.10 Post-traumatic stress disorder, unspecified; F60.3 Borderline personality disorder; F14.10 Cocaine abuse, uncomplicated; F17.210 Nicotine dependence, cigarettes, uncomplicated; Z79.899 Other long term (current) drug therapy
CPT/HCPCS: 80048; 80076; 80307; 81003; 85025; 87635; 99284; S9485

== ENCOUNTER 2023-12-14 11:07 | Emergency (ER) | payer MEDICAID, SELFPAY ==
[2023-12-14 11:16] VITALS: BP 154/88; PULSE 84; O2SAT 96
[2023-12-14 11:46] VITALS: BP 137/92; PULSE 74; RESP 18; TEMP 35.8; O2SAT 96; BMI 39.3
--- NOTE | 2023-12-14 11:51 | ED_ITS ---
HPI - General Adult General Chief complaint: Extremity Injury, Lower Stated complaint: NUMBNESS/PAIN IN LEGS Time Seen by Provider: 12/14/23 12:50 Source: patient and EMS Mode of arrival: EMS Limitations: no limitations History of Present Illness HPI narrative: Patient is a 53 year old assigned female at with a history of COPD, BPD, anxiety, and neuropathy presenting to the emergency department today with fahad ateral leg pain. Patient states that she is already on gabapentin for her leg pain but she is having more of it today. Patient denies any dizziness, lightheadedness, abdominal pain, nausea, vomiting, fever, chills, blurry vision, double vision, loss of vision, chest pain, difficulty breathing, shortness of breath, back pain, night sweats, pain with urination, increased urinary frequency, increased urinary urgency, blood in her urine or stool, syncope or a near syncopal episode, recent trauma or falls, bowel incontinence, bladder incontinence, bowel retention, bladder retention, or any other complaints at this time. Relieving factors: none Exacerbating factors: none Associated symptoms: denies other symptoms Treatments prior to arrival: none Related Data Home Medications Medication Instructions Recorded Confirmed lithium carbonate 450 mg 450 mg PO TID 05/14/23 11/25/23 tablet,extended release cyanocobalamin (vitamin B-12) 1,000 mcg PO DAILY 06/11/23 11/25/23 1,000 mcg tablet (Vitamin B-12) ipratropium 0.5 mg-albuterol 3 mg 3 ml inhalation RQ6H PRN Shortness 06/11/23 11/25/23 (2.5 mg base)/3 mL nebulization Of Breath Or Wheezing soln gabapentin 400 mg capsule 400 mg PO TID 10/24/23 11/25/23 valacyclovir 1 gram tablet 1,000 mg PO BID 11/17/23 11/17/23 Previous Rx's Medication Instructions Recorded albuterol sulfate 90 mcg/actuation 2 puff inhalation Q4H PRN 03/22/23 aerosol inhaler (Ventolin HFA) shortness of breath or wheezing #6.7 grams clonidine HCl 0.2 mg tablet 0.2 mg PO BEDTIME #30 tabs 03/22/23 ferrous sulfate 324 mg (65 mg 324 mg PO DAILY #30 tabs 03/22/23 iron) tablet,delayed release olanzapine 10 mg tablet 10 mg PO BEDTIME #30 tabs 03/22/23 omeprazole 20 mg capsule,delayed 20 mg PO DAILY@0630 #30 caps 03/22/23 release ropinirole 1 mg tablet 1 mg PO BEDTIME #30 tabs 03/22/23 tiotropium bromide 18 mcg capsule 18 mcg inhalation RDAILY #20 03/22/23 with inhalation device (Spiriva inhalations with HandiHaler) Allergies Allergy/AdvReac Type Severity Reaction Status Date / Time aspirin Allergy Mild Anaphylaxis Verified 11/12/23 06:31 ampicillin Allergy Rash Verified 11/12/23 06:31 Penicillins Allergy Anaphylaxis Verified 11/12/23 06:31 latex AdvReac Rash Verified 11/12/23 06:31 Latex, Natural Rubber AdvReac Rash Verified 11/12/23 06:31 seafood AdvReac Anaphylaxis Verified 11/12/23 06:31 Sulfa (Sulfonamide AdvReac Hives Verified 11/12/23 06:31 Antibiotics) Review of Systems Constitutional: Constitutional: Reports no additional constitutional complaints, Denies chills, Denies fever(s) and Denies night sweats Eyes: Eyes: Reports no additional eye complaints, Denies blurry vision, Denies change in vision, Denies diplopia, Denies eye discharge, Denies loss of vision and Denies eye pain ENT: Denies dizziness Cardiovascular: Cardiovascular: Reports no additional cardiovascular complaints, Denies chest pain, Denies lightheadedness, Denies Loss of Consciousness and Denies dyspnea Respiratory: Respiratory: Reports no additional respiratory complaints and D enies dyspnea Gastrointestinal: Gastrointestinal: Reports no additional gastrointestinal complaints, Denies abdominal pain, Denies melena, Denies hematochezia, Denies change in bowel habits and Denies change in stool character Genitourinary: Genitourinary: Denies hematuria, Denies urinary frequency, Denies dysuria, Denies urinary incontinence, Denies urinary hesitancy and Denies urinary urgency Musculoskeletal: Musculoskeletal: Reports no additional musculoskeletal complaints, Denies numbness and Denies tingling Comments: bilateral leg pain Neurologic: Denies dizziness, Denies loss of vision, Denies numbness and Denies tingling Psychiatric: Psychiatric: Reports no additional psychiatric complaints Endocrine: Endocrine: Reports no additional endocrine complaints Hematologic/Lymphatic: Hematologic/Lymphatic: Reports no additional hematologic/lymphatic complaints Allergic/Immunologic: Allergic/Immunologic: Reports no additional allergic/immunologic complaints PMFSH Past Medical History Attestation statement: The following information was validated with the patient. Source: old records reviewed and nursing notes reviewed Medical History Overdose on Tylenol Suicide attempt Asthma COPD (chronic obstructive pulmonary disease) Chronic lung disease Neoplasm of parotid gland Depression 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 Drug abuse Bipolar I disorder Post traumatic stress disorder (PTSD) Tobacco use disorder FABIOLA (obstructive sleep apnea) Borderline personality disorder Intermittent explosive disorder Asthma exacerbation in COPD Herpes Tobacco use Bipolar disorder COPD (chronic obstructive pulmonary disease) Surgical History History of ankle surgery History of back surgery Hx of cholecystectomy History of appendectomy Family History Family History Mother COPD (chronic obstructive pulmonary disease) Social History Social History Household Members: None Household Members Other:: [facility] [place] Housing: Apartment Housing Other:: Sleeps on the couch at [facility] house Do you presently have visiting nurse or other home services: Yes ([facility] nurse daily for meds.) Unable to assess alcohol history related to: Unknown Alcohol intake: current Alcohol intake frequency: holidays/special occasions only Alcohol type: hard liquor Comment: pt has sitter in room Patient Tobacco Use Status: Current everyday Tobacco user Tobacco use type: Cigarette Cigarette Packs Per Day: 1 Cigarettes Per Day: 8 Years Smoked: 40 e-Cigarette/Vaping Use: Never Used Second Hand Smoke Exposure: Yes Substance Use Type: Crack/Cocaine Advance Directives: Yes Advance Directives on File: Yes Advance Directives Date on File: 06/17/22 service: No Current occupational status: unemployed and disabled Sexual orientation: Straight/Heterosexual Physical Exam ED Vital Signs: Vital Signs - 24 hr 12/14/23 11:46 Temperature 96.5 F L Pulse Rate 74 Respiratory Rate 18 Blood Pressure 137/92 H Pulse Oximetry 96 Oxygen Delivery Method Room Air BMI result Body Mass Index 39.3 Const General: cooperative, no acute distress, alert and awake Nutritional Appearance: well nourished Orientation/consciousness: patient oriented x3 Limitations: no limitations HENMT Head: Yes normal to inspection and Yes atraumatic Ears: hearing grossly normal bilaterally and external ears normal General nose exam: Normal external nose present, no nasal discharge noted and no epistaxis Face and sinus: Yes normal facial exam, No abrasion and No laceration Mouth: Normal oral and palatal mucosa present, no drooling and no muffled voice Eyes General: appearance normal, both eyes and all related structures Periorbital: periorbital findings normal Eyelids: Yes eyelids normal Conjunctivae: conjunctivae normal Pupils: Equal, round and reactive pupils present EOM: EOMs intact bilaterally Neck Neck: Yes normal visual inspection, Yes full ROM and Yes no lymphadenopathy Chest Chest palpation & inspection: normal inspection of the chest Resp Effort & Inspection: normal respiratory effort and able to speak in complete sentences GI Inspection: Yes normal to inspection General: Yes no CVA tenderness Back/Spine/Pelvis Back: no CVA tenderness Cervical Spine: normal cervical lordosis and cervical ROM normal Thoracic/Lumbar Spine: thoracic and lumbar spine normal to inspection Pelvis: no pain with anterior-posterior compression Neuro General: patient oriented x3 and moves all extremities Cranial nerves: Yes Equal, round and reactive pupils present Cognition (Neuro): normal cognition Motor exam (neuro): 5/5 motor strength present throughout Sensory Exam: Normal double simultaneous stimulation for sensation Coordination: [id number] test normal Extrem General: Yes normal to inspection, Yes full ROM and Yes capillary refill normal Psych Appearance: grossly normal Mental Status: mental status grossly normal Affect: normal affect Attitude: cooperative Thought process: Normal thought process present Thought content: Normal thought content present Insight: Good insight present (Psych) Course Course Course Narrative: Patient complains of chronic pain worse in bilateral legs This is rapid medical exam and triage pending full evaluation and dispo in the ER by ER provider for Medications Administered Discontinued Medications Generic Name Dose Route Start Last Admin Trade Name Freq PRN Reason Stop Dose Admin Cyclobenzaprine HCl 5 mg 12/14/23 13:00 12/14/23 13:15 Cyclobenzaprine Hcl 5 Mg Tablet PO 12/14/23 13:01 5 mg ONCE ONE Administration Medical Decision Making Medical Decision Making [facility] Narrative: Patient is a 53 year old assigned female at with a history of BPD, neuropathy, and COPD presenting to the emergency department today with bilateral leg pain. Patient's physical exam was unremarkable. I explained my physical exam findings to the patient. I answered all questions asked by the patient. Patient received PO Flexeril which she stated helped her symptoms significantly. I stressed the importance of the patient taking her medication as prescribed. I stressed the importance of the patient following up with her primary care arely flores. I stressed the importance of the patient returning to the emergency department immediately if her symptoms were to worsen or if she were to develop any dizziness, shortness of breath, difficulty breathing, chest pain, blurry vision, loss of vision, nausea, vomiting, abdominal pain, fever, chills, back pain, or any other complaints. Patient verbalized agreement and understanding with this treatment plan and discharge. Differential Diagnosis Differential Diagnoses: The differential diagnosis associated with the presentation includes Neuropathy Chronic leg pain Anxiety Admission/Observation Consideration of admission/observation: Escalation of care including admission/observation considered Patient would have been admitted to the hospital had her clinical presentation warranted hospital admission. Independent Historian Clinical information obtained from an independent historian. History obtained from or confirmed by: EMS (EMS provided additional history and confirmed the h istory provided by the patient. ) Discharge Plan Discharge Clinical Impression: Neuropathy Patient Disposition: Home, Self-Care Instructions: Peripheral Neuropathy (ED) Additional Instructions: Follow up with your primary care provider. Return to the emergency department immediately if your symptoms worsen or if you develop any dizziness, shortness of breath, difficulty breathing, chest pain, blurry vision, loss of vision, nausea, vomiting, abdominal pain, fever, chills, back pain, or any other complaints. Prescriptions: No Action ropinirole 1 mg Tablet 1 mg PO BEDTIME Qty: 30 0RF olanzapine 10 mg Tablet 10 mg PO BEDTIME Qty: 30 0RF clonidine HCl 0.2 mg Tablet 0.2 mg PO BEDTIME Qty: 30 0RF Protocol: Hold for SBP< HOLD for SBP < : 90 albuterol sulfate [Ventolin HFA] 90 mcg/actuation Hfa Aerosol Inhaler 2 puff inhalation Q4H PRN (Reason: shortness of breath or wheezing) Qty: 6.7 0RF tiotropium bromide [Spiriva with HandiHaler] 18 mcg Capsule, W/Inhalation Device 18 mcg inhalation RDAILY Qty: 20 0RF ferrous sulfate 324 mg (65 mg iron) Tablet,Delayed Release (Dr/Ec) 324 mg PO DAILY Qty: 30 0RF omeprazole 20 mg Capsule,Delayed Release(Dr/Ec) 20 mg PO DAILY@0630 Qty: 30 0RF lithium carbonate 450 mg tablet extended release 450 mg PO TID cyanocobalamin (vitamin B-12) [Vitamin B-12] 1,000 mcg tablet 1,000 mcg PO DAILY ipratropium-albuterol 0.5 mg-3 mg(2.5 mg base)/3 mL solution for nebulization 3 ml inhalation RQ6H PRN (Reason: Shortness Of Breath Or Wheezing) gabapentin 400 mg Capsule 400 mg PO TID valacyclovir 1 gram tablet 1,000 mg PO BID Referrals: Mike Malone MD [Primary Care Provider] - Interventions: ED Discharge Assessment Last Done: 12/14/23 14:17 Discharge Date/Time: 12/14/23 14:18 Print Language: Faroese
[2023-12-14] MEDS: Cyclobenzaprine HCl 5 MG TABLET PO (13:15)
== END 2023-12-14 14:18 | disposition home or self-care (01) ==
PROVIDERS: Emergency Provider Emergency Medicine Emergency Medical Services; PCP Internal Medicine
DX: G62.9 Polyneuropathy, unspecified (principal); M79.605 Pain in left leg; M79.604 Pain in right leg; F17.210 Nicotine dependence, cigarettes, uncomplicated
CPT/HCPCS: 99283

== ENCOUNTER 2023-12-19 09:56 | Inpatient (IN) | payer MEDICAID, SELFPAY ==
[2023-12-19] VITALS (11 sets, daily range): BP systolic 107–143; BP diastolic 58–91; PULSE 89–110; RESP 14–26; TEMP 36.4–36.9; O2SAT 88–95; BMI 44.1
--- NOTE | ~2023-12-19 | XR_ITS ---
EXAMINATION: XR CHEST CLINICAL INFORMATION: Chest pain COMPARISON: Chest radiograph from 11/17/2023 TECHNIQUE: Frontal view of the chest was obtained. FINDINGS: Bilateral low lung volumes. Accentuation of pulmonary vasculature. Slight elevation the right hemidiaphragm. No pneumothorax. Trachea is midline. Cardiomediastinal silhouette is stable. No large pleural effusion. Osseous structures are intact. Soft tissues are unremarkable. XR/XR chest 1V IMPRESSION: 1. Bilateral low lung volumes. 2. Accentuation of pulmonary vasculature. 3. Slight elevation the right hemidiaphragm.
--- NOTE | 2023-12-19 10:09 | ED.SOB ---
HPI - SOB/Dyspnea General Chief Complaint: Upper Respiratory Symptoms Stated Complaint: SOB 88% RA, 94% 2LPM/DUONEB PER EMS Time Seen by Provider: 12/19/23 10:07 Source: patient and EMS Mode of arrival: EMS Limitations: no limitations History of Present Illness HPI Narrative: 53 years old with history of COPD, presented to the emergency department in respiratory distress brought in by the tailman according to the EMS the sat was 88% on room air. Denies any fever chills. MD elicited complaint: shortness of breath and cough Pertinent past history: COPD Onset (ago): day(s) (1) Timing: constant Severity: severe Exacerbating factors: nothing Relieving factors: oxygen and bronchodilators Known history of: COPD Associated symptoms: denies other symptoms Related Data Home Medications Medication Instructions Recorded Confirmed lithium carbonate 450 mg 450 mg PO TID 05/14/23 11/25/23 tablet,extended release cyanocobalamin (vitamin B-12) 1,000 mcg PO DAILY 06/11/23 11/25/23 1,000 mcg tablet (Vitamin B-12) ipratropium 0.5 mg-albuterol 3 mg 3 ml inhalation RQ6H PRN Shortness 06/11/23 11/25/23 (2.5 mg base)/3 mL nebulization Of Breath Or Wheezing soln gabapentin 400 mg capsule 400 mg PO TID 10/24/23 11/25/23 valacyclovir 1 gram tablet 1,000 mg PO BID 11/17/23 11/17/23 Previous Rx's Medication Instructions Recorded albuterol sulfate 90 mcg/actuation 2 puff inhalation Q4H PRN 03/22/23 aerosol inhaler (Ventolin HFA) shortness of breath or wheezing #6.7 grams clonidine HCl 0.2 mg tablet 0.2 mg PO BEDTIME #30 tabs 03/22/23 ferrous sulfate 324 mg (65 mg 324 mg PO DAILY #30 tabs 03/22/23 iron) tablet,delayed release olanzapine 10 mg tablet 10 mg PO BEDTIME #30 tabs 03/22/23 omeprazole 20 mg capsule,delayed 20 mg PO DAILY@0630 #30 caps 03/22/23 release ropinirole 1 mg tablet 1 mg PO BEDTIME #30 tabs 03/22/23 tiotropium bromide 18 mcg capsule 18 mcg inhalation RDAILY #20 03/22/23 with inhalation device (Spiriva inhalations with HandiHaler) Allergies Allergy/AdvReac Type Severity Reaction Status Date / Time aspirin Allergy Mild Anaphylaxis Verified 11/12/23 06:31 ampicillin Allergy Rash Verified 11/12/23 06:31 Penicillins Allergy Anaphylaxis Verified 11/12/23 06:31 latex AdvReac Rash Verified 11/12/23 06:31 Latex, Natural Rubber AdvReac Rash Verified 11/12/23 06:31 seafood AdvReac Anaphylaxis Verified 11/12/23 06:31 Sulfa (Sulfonamide AdvReac Hives Verified 11/12/23 06:31 Antibiotics) Review of Systems Constitutional: Constitutional: Reports no additional constitutional complaints Respiratory: Respiratory: Reports cough Musculoskeletal: Musculoskeletal: Reports no additional musculoskeletal complaints [facility] Past Medical History Attestation statement: The following information was validated with the patient. 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 Drug abuse Bipolar I disorder Post traumatic stress disorder (PTSD) Tobacco use disorder FABIOLA (obstructive sleep apnea) Borderline personality disorder Intermittent explosive disorder Asthma exacerbation in COPD Herpes Tobacco use Bipolar disorder COPD (chronic obstructive pulmonary disease) Surgical History History of ankle surgery History of back surgery Hx of cholecystectomy History of appendectomy Family History Family History Mother COPD (chronic obstructive pulmonary disease) Social History Social History Household Members: None Household Members Other:: Long Term in [place] Housing: Apartment Housing Other:: Sleeps on the couch at [facility] house Do you presently have visiting nurse or other home services: Yes ([facility] nurse daily for meds.) Unable to assess alcohol history related to: Unknown Alcohol intake: current Alcohol intake frequency: holidays/special occasions only Alcohol type: hard liquor Comment: pt has sitter in room Patient Tobacco Use Status: Current everyday Tobacco user Tobacco use type: Cigarette Cigarette Packs Per Day: 1 Cigarettes Per Day: 8 Years Smoked: 40 e-Cigarette/Vaping Use: Never Used Second Hand Smoke Exposure: Yes Substance Use Type: Crack/Cocaine Advance Directives: Yes Advance Directives on File: Yes Advance Directives Date on File: 06/17/22 service: No Current occupational status: unemployed and disabled Sexual orientation: Straight/Heterosexual Physical Exam Vital Signs: Vital Signs: Last Vital Signs Temp 98.2 F 12/19/23 10:03 Pulse 94 12/19/23 10:11 Resp 24 H 12/19/23 10:11 BP 116/68 12/19/23 10:03 Pulse Ox 91 L 12/19/23 11:30 O2 Del Method Nasal Cannula 12/19/23 11:30 Oxygen Flow Rate 2 12/19/23 11:30 BMI result Body Mass Index 44.1 Const: General: alert Nutritional Appearance: well nourished Orientation/consciousness: patient oriented x3 HEENT: Head: Yes normal to inspection General nose exam: Normal external nose present Face and sinus: Yes normal facial exam Mouth: Normal oral and palatal mucosa present Throat: Yes posterior oropharynx normal Neck: Neck: Yes normal visual inspection Resp: Effort & Inspection: audible wheezes and Actively coughing Auscultation: wheezes Cardio: Jugular venous distension: no JVD Rate: regular rate Rhythm: regular rhythm GI: Inspection: Yes normal to inspection Palpation (GI): Soft to palpation Auscultation: normal bowel sounds Neuro: General: patient oriented x3 Course Reevaluation(s) Reevaluation #1: Still wheezing will give another neb, anticipate admission she does have an oxygen requirement about 2 L Time: 12:34 Medications Administered Discontinued Medications Generic Name Dose Route Start Last Admin Trade Name Jacob PRN Reason Stop Dose Admin Albuterol Sulfate 7.5 mg/ 10 mg 12/19/23 10:09 12/19/23 10:11 Albuterol Sulfate 2.5 mg INHALE 12/19/23 10:10 10 mg ONCE ONE Administration Methylprednisolone Sodium Succinate 125 mg 12/19/23 10:08 12/19/23 10:27 Methylprednisolone Sod Succ 125 Mg/2 Ml Vial IVPUSH 12/19/23 10:09 125 mg ONCE ONE Administration Medical Decision Making Medical Decision Making MDM Narrative: Patient presented to the emergency department with a chief complaint of wheezing shortness of breath will obtain chest Differential Diagnosis Differential Diagnoses: The differential diagnosis associated with the presentation includes COPD exacerbation/pneumonia/influenza/COVID Admission/Observation Consideration of admission/observation: Escalation of care including admission/observation considered Consult Healthcare Provider Management of the patient was discussed with: Hospitalist Lab Data MDM Lab Attestation statement: I reviewed the patient's lab results. 12/19/23 10:24 12/19/23 10:24 Labs: Lab Results 12/19/23 12/19/23 Range/Units 10:24 10:44 WBC 5.5 (4.8-10.8) X10*3/uL RBC 5.32 (4.20-5.50) X10*6/uL Hgb 16.0 (12.0-16.0) g/dl Hct 49.8 H (37.0-47.0) % MCV 93.6 (80.0-98.0) fL MCH 30.1 (27.0-33.0) pg MCHC 32.1 (31.0-35.0) g/dl RDW 12.9 (11.0-16.0) % Plt Count 210 D (160-400) X10*3/uL MPV 11.0 (9.4-12.3) fL Immature Gran % (Auto) 0.2 (0.0-0.4) % Neut % (Auto) 69.3 (45-73) % Lymph % (Auto) 18.4 L (20-40) % [place] % (Auto) 9.5 (2-11) % Eos % (Auto) 1.3 (0-4) % Baso % (Auto) 1.3 (0-2) % Lymph # (Auto) 1.0 L (1.2-4.9) X10*3/uL [place] # (Auto) 0.5 (0.1-1.2) X10*3/uL Eos # (Auto) 0.1 (0.0-0.4) X10*3/uL Baso # (Auto) 0.1 (0.0-0.2) X10*3/uL Abs Immat Gran (auto) 0.01 (0.00-0.03) X10*3/uL Absolute Neuts (auto) 3.8 (2.0-8.3) x10*3/uL Absolute Nucleated RBC 0.000 (0.0-0.012) X10*3/uL Nucleated RBC % (auto) 0.0 (0.0-0.2) /100WBC Sodium 138 (135-145) mmol/L Potassium 4.2 (3.3-5.1) mmol/L Chloride 102 (96-108) mmol/L Carbon Dioxide 26 (22-29) mmol/L Anion Gap 14 (12-20) BUN 7 L (9-16) mg/dL Creatinine 0.70 (0.5-1.4) mg/dL Estim Creat Clear Calc 122.1 Estimated GFR > 60 Random Glucose 105 (60-115) mg/dL Calcium 9.8 (8.4-10.2) mg/dL Total Bilirubin 0.3 (0.0-1.0) mg/dL AST 13 (5-31) U/L ALT 14 (0-31) U/L Alkaline Phosphatase 80 (39-117) U/L Total Protein 7.2 (6.5-8.0) g/dL Albumin 4.3 (3.5-5.0) g/dL Influenza Type A (PCR) NEGATIVE (Negative) Influenza Type B (PCR) NEGATIVE (Negative) RSV RNA Qual (PCR) NEGATIVE (Negative) SARS-CoV-2 RNA (RT-PCR) NEGATIVE (Negative) Independent Interpretation I performed an independent interpretation of an: Plain X-Ray Radiology Impression Discussion of test interpretation with radiology: I have reviewed the radiologist's reading. Independent Historian Clinical information obtained from an independent historian. History obtained from or confirmed by: EMS External Record Review External record reviewed: Inpatient record Critical Care Time Critical Care Time Critical Care Time: Yes Total Critical Care Time: 60 Attestation: Multiple nebs [id number] Discharge Plan Discharge Clinical Impression: COPD exacerbation Patient Disposition: Admitted As Inpatient
[2023-12-19] MEDS: Albuterol Sulfate 7.5 MG, Albuterol Sulfate (0.083%) 2.5 MG 10 MG INHALE (10:11)
[2023-12-19] MEDS: methylPREDNISolone Sod Succ 125 MG/2 ML VIAL IVPUSH (10:27)
[2023-12-19 10:33] LABS: MANUAL DIFF FLAG NO
[2023-12-19 10:45] LABS: Basophils Absolute Auto 0.1 X10*3/uL (0.0-0.2); Basophils Percent Auto 1.3 % (0-2); Eosinophils Absolute Auto 0.1 X10*3/uL (0.0-0.4); Eosinophils Percent Auto 1.3 % (0-4); Hematocrit 49.8 % (37.0-47.0); Imm Gran Abs Auto 0.01 X10*3/uL (0.00-0.03); Imm Gran Pct Auto 0.2 % (0.0-0.4); Lymphocytes Percent Auto 18.4 % (20-40); Mean Corpuscular HGB Conc 32.1 g/dl (31.0-35.0); Mean Corpuscular Hemoglobin 30.1 pg (27.0-33.0); Mean Corpuscular Volume 93.6 fL (80.0-98.0); Monocytes Absolute Auto 0.5 X10*3/uL (0.1-1.2); Monocytes Percent Auto 9.5 % (2-11); Neutrophils Absolute Auto 3.8 x10*3/uL (2.0-8.3); Neutrophils Percent Auto 69.3 % (45-73); Platelet Count 210 X10*3/uL (160-400); Red Blood Count 5.32 X10*6/uL (4.20-5.50); Red Cell Distribution Width 12.9 % (11.0-16.0); White Blood Count 5.5 X10*3/uL (4.8-10.8)
[2023-12-19 10:58] LABS: Alanine Aminotransferase 14 U/L (0-31); Albumin Level 4.3 g/dL (3.5-5.0); Alkaline Phosphatase 80 U/L (39-117); Anion Gap 14 (12-20); Aspartate Amino Transferase 13 U/L (5-31); Bilirubin Total 0.3 mg/dL (0.0-1.0); Blood Urea Nitrogen 7 mg/dL (9-16); Calcium 9.8 mg/dL (8.4-10.2); Carbon Dioxide 26 mmol/L (22-29); Chloride 102 mmol/L (96-108); Creatinine Clr Calc Pharmacy 122.1; Estimated Glomerular Filt Rate > 60; Glucose Random 105 mg/dL (60-115); Potassium 4.2 mmol/L (3.3-5.1); Sodium 138 mmol/L (135-145); Total Protein 7.2 g/dL (6.5-8.0)
[2023-12-19 11:28] LABS: Influenza A PCR NEGATIVE (Negative); Influenza B PCR NEGATIVE (Negative); Resp Syncy Virus RNA Qual PCR NEGATIVE (Negative); SARS COV2 PCR INHOUSE NEGATIVE (Negative)
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
--- NOTE | 2023-12-19 14:22 | PHA.MEDREC ---
Pharmacy Consult ? Medication Reconciliation Pharmacy has completed the medication reconciliation. contacted [facility] for med list.
[2023-12-19] MEDS: Albuterol/Iprat 2.5/0.5MG 3 ML AMPUL.NEB INHALE (14:36)
[2023-12-19] MEDS: Enoxaparin Sodium 40 MG/0.4 ML SYRINGE SUBCUT (14:40)
--- NOTE | 2023-12-19 15:15 | MHC.EDTECH ---
pt given brooks abner
--- NOTE | 2023-12-19 15:28 | MHC.EDTECH ---
pt is on 4l of oxygen, SPO2 92%
[2023-12-19] MEDS: Lithium Carbonate ER 450 MG TABLET.ER PO ×2 (16:21→20:30)
[2023-12-19] MEDS: Gabapentin 400 MG CAPSULE PO ×2 (16:21→20:29)
[2023-12-19] MEDS: 0.9 % Sodium Chloride Flush 3 ML SYRINGE IVFLUSH ×2 (16:24→20:32)
[2023-12-19] MEDS: Albuterol Sulfate (0.083%) 2.5 MG/3 ML VIAL.NEB INHALE (19:45)
[2023-12-19] MEDS: OLANZapine 10 MG TABLET PO (20:29)
[2023-12-19] MEDS: cloNIDine HCL 0.2 MG TABLET PO (20:29)
[2023-12-19] MEDS: rOPINIRole HCL 1 MG TABLET PO (20:30)
[2023-12-19] MEDS: methylPREDNISolone Sod Succ 40 MG/ML VIAL IVPUSH (22:27)
[2023-12-19] MEDS: guaiFENesin 100 MG/5 ML LIQUID PO (22:27)
[2023-12-20] VITALS (10 sets, daily range): BP systolic 99–134; BP diastolic 51–90; PULSE 75–95; RESP 18–20; TEMP 36.1–36.7; O2SAT 89–95
[2023-12-20] MEDS: guaiFENesin 100 MG/5 ML LIQUID PO ×3 (04:24→15:58)
[2023-12-20] MEDS: Omeprazole 20 MG CAPSULE.DR PO (06:03)
[2023-12-20] MEDS: Acetaminophen 325 MG TABLET 650 MG PO (06:19)
[2023-12-20] MEDS: Albuterol Sulfate (0.083%) 2.5 MG/3 ML VIAL.NEB INHALE ×4 (07:56→19:33)
[2023-12-20] MEDS: Tiotropium Bromide 2.5 mcg 1 PUFF/2.5 MCG MIST.INHAL 2 PUFF INHALE (07:56)
--- NOTE | 2023-12-20 08:21 | HO.PM.IMPN ---
Subjective Subjective Date of Service: 12/20/23 Interval History: f/u on acute hypoxic resp failure d/t copd exacerbation feels better, but still feels sob and still using O2, coughing Physical Exam Vital Signs: Vital Signs: Last Vital Signs Temp 97.8 F 12/20/23 07:30 Pulse 77 12/20/23 07:57 Resp 20 12/20/23 07:57 BP 134/62 12/20/23 07:30 Pulse Ox 91 L 12/20/23 07:30 O2 Del Method Nasal Cannula 12/20/23 07:30 O2 Flow Rate 2 12/20/23 07:30 Oxygen Flow Rate 2 12/19/23 11:30 BMI result Body Mass Index 44.1 General: AO X 3, no acute distress Resp: exp/insp wheezing but normal effort CVS: S1,S2,RRR GI: +BS, NT, no distention Skin: No rash Neuro: motor grossly intact Psych: appropriate affect Objective Data Active Medications Acetaminophen (Acetaminophen 325 Mg Tablet) 650 mg PO Q6H PRN PRN Reason: Pain, Mild (Pain Scale 1-3) Last Admin: 12/20/23 06:19 Dose: 650 mg Documented By: STEPH Al Hydroxide/Mg Hydroxide (Magnesium Hydrox/Alum Hydrox 30 Ml Oral.Susp) 30 ml PO Q4H PRN PRN Reason: Heartburn/Nausea Albuterol Sulfate (Albuterol Sulfate 90 Mcg 8 Gm Inhaler) 2 puff INHALE Q4H PRN PRN Reason: shortness of breath or wheezing Albuterol Sulfate (Albuterol Sulfate (0.083%) 2.5 Mg/3 Ml Vial.Neb) 2.5 mg INHALE RQ4H WHILE AWAKE [facility] Last Admin: 12/20/23 07:56 Dose: 2.5 mg Documented By: ARELIS Albuterol/Ipratropium (Albuterol/Iprat 2.5/0.5mg 3 Ml Ampul.Neb) 3 ml INHALE Q2H PRN PRN Reason: Shortness Of Breath Or Wheezing Clonidine HCl (Clonidine Hcl 0.2 Mg Tablet) 0.2 mg PO BEDTIME [facility]; Protocol Last Admin: 12/19/23 20:29 Dose: 0.2 mg Documented By: STEPH Cyanocobalamin (Cyanocobalamin (Vitamin B-12) 1,000 Mcg Tablet) 1,000 mcg PO DAILY [facility] Enoxaparin Sodium (Enoxaparin Sodium 40 Mg/0.4 Ml Syringe) 40 mg SUBCUT Q24H [facility] Last Admin: 12/19/23 14:40 Dose: 40 mg Documented By: TU Ferrous Sulfate (Ferrous Sulfate 324 Mg Tablet.) 324 mg PO DAILY [facility] Gabapentin (Gabapentin 400 Mg Capsule) 400 mg PO TID [facility] Last Admin: 12/19/23 20:29 Dose: 400 mg Documented By: STEPH Guaifenesin (Guaifenesin 100 Mg/5 Ml Liquid) 5 ml PO Q6H PRN PRN Reason: Cough Last Admin: 12/20/23 04:24 Dose: 5 ml Documented By: STEPH [place] Carbonate ([place] Carbonate Er 450 Mg Tablet.Er) 450 mg PO TID [facility] Last Admin: 12/19/23 20:30 Dose: 450 mg Documented By: STEPH Loratadine (Loratadine 10 Mg Tablet) 10 mg PO DAILY PRN PRN Reason: Allergy Symptoms Melatonin (Melatonin 3 Mg Tablet) 6 mg PO BEDTIME PRN PRN Reason: Insomnia Methylprednisolone Sodium Succinate (Methylprednisolone Sod Succ 40 Mg/Ml Vial) 40 mg IVPUSH Q12H [facility] Last Admin: 12/19/23 22:27 Dose: 40 mg Documented By: STEPH Nicotine Polacrilex (Nicotine Polacrilex 2 Mg Gum) 2 mg BUCCAL Q2H PRN PRN Reason: Nicotine Cravings Olanzapine (Olanzapine 10 Mg Tablet) 10 mg PO BEDTIME [facility] Last Admin: 12/19/23 20:29 Dose: 10 mg Documented By: STEPH Omeprazole (Omeprazole 20 Mg Capsule.) 20 mg PO DAILY@0630 [facility] Last Admin: 12/20/23 06:03 Dose: 20 mg Documented By: STEPH Ondansetron HCl (Ondansetron Hcl 4 Mg/2 Ml Vial) 4 mg IVPUSH Q8H PRN PRN Reason: Nausea and Vomiting Ropinirole HCl (Ropinirole Hcl 1 Mg Tablet) 1 mg PO BEDTIME [facility] Last Admin: 12/19/23 20:30 Dose: 1 mg Documented By: STEPH Sodium Chloride (0.9 % Sodium Chloride Flush 3 Ml Syringe) 3 ml IVFLUSH QSHIFT [facility] Last Admin: 12/19/23 20:32 Dose: 3 ml Documented By: STEPH Tiotropium [place] (Tiotropium [place] 2.5 Mcg 1 Puff/2.5 Mcg Mist.Inhal) 2 puff INHALE RDAILY [facility] Last Admin: 12/20/23 07:56 Dose: 2 puff Documented By: ARELIS Valacyclovir HCl (Valacyclovir Hcl 500 Mg Tablet) 500 mg PO DAILY [facility] Labs 12/19/23 10:24 12/19/23 10:24 Labs: Laboratory Results - last 24 hr 12/19/23 12/19/23 12/20/23 10:24 10:44 06:20 MCV 93.6 MCH 30.1 MCHC 32.1 RDW 12.9 Plt Count 210 D MPV 11.0 Immature Gran % (Auto) 0.2 Neut % (Auto) 69.3 Lymph % (Auto) 18.4 L [place] % (Auto) 9.5 Eos % (Auto) 1.3 Baso % (Auto) 1.3 Lymph # (Auto) 1.0 L [place] # (Auto) 0.5 Eos # (Auto) 0.1 Baso # (Auto) 0.1 Abs Immat Gran (auto) 0.01 Absolute Neuts (auto) 3.8 Absolute Nucleated RBC 0.000 Nucleated RBC % (auto) 0.0 Hold [place] SEE NOTE Anion Gap 14 Estim Creat Clear Calc 122.1 Estimated GFR > 60 Random Glucose 105 Calcium 9.8 Total Bilirubin 0.3 AST 13 ALT 14 Alkaline Phosphatase 80 Total Protein 7.2 Albumin 4.3 [place] 0.70 Influenza Type A (PCR) NEGATIVE Influenza Type B (PCR) NEGATIVE RSV RNA Qual (PCR) NEGATIVE SARS-CoV-2 RNA (RT-PCR) NEGATIVE Assessment and Plan (1) COPD exacerbation: Status: Acute (2) COPD exacerbation: Status: Acute (3) Bipolar I disorder with depression: Status: Acute Plan A 53-year-old female with moderate persistent asthma, COPD, obstructive sleep apnea on CPAP, GERD, and mood disorder, along with tobacco use disorder, is being admitted for acute hypoxic respiratory failure precipitated by moderate persistent asthma and acute COPD exacerbation. Acute hypoxic respiratory failure due to COPD exacerbation and moderate persistent asthma, improving but not optimal -Treat underlying COPD/asthma. -Oxygen therapy with a goal of maintaining O2 saturation between 88 to 92%, wean For COPD exacerbation/Asthma exacerbation: -Bronchodilators via nebulizer. -IV Solu-Medrol and change to PO prednisone if better tomorrow -Tobacco cessation intervention. -NRT GERD: Proton pump inhibitor (PPI). Neuropathy: Gabapentin. For bipolar/mood disorder: -[place]. -Olanzapine. DVT prophylaxis with Lovenox is initiated. Full Code need for inpatient: ongoing treatment acute respiratory failure due to COPD/asthma exacerbation with IV steroid therapy, oxygen titration, and close monitoring. Quality Stroke Does the patient have a stroke diagnosis?: No VTE Prior VTE?: No VTE Risk Level:: Medical - moderate - high VTE Device Contraindication: Treatment Not Indicated VTE Drug Contraindication: N/A - Med Ordered
[2023-12-20] MEDS: Gabapentin 400 MG CAPSULE PO ×3 (08:23→19:40)
[2023-12-20] MEDS: Ferrous Sulfate 324 MG TABLET.DR PO (08:23)
[2023-12-20] MEDS: Lithium Carbonate ER 450 MG TABLET.ER PO ×3 (08:23→19:39)
[2023-12-20] MEDS: valACYclovir HCL 500 MG TABLET PO (08:23)
[2023-12-20] MEDS: methylPREDNISolone Sod Succ 40 MG/ML VIAL IVPUSH ×2 (08:23→21:13)
[2023-12-20] MEDS: 0.9 % Sodium Chloride Flush 3 ML SYRINGE IVFLUSH ×2 (08:23→15:53)
[2023-12-20] MEDS: Cyanocobalamin (Vitamin B-12) 1,000 MCG TABLET 1000 MCG PO (08:23)
--- NOTE | 2023-12-20 09:56 | MHC.CM.PN ---
pt lives alone has tere for her lock box will need [facility]
[2023-12-20] MEDS: Benzonatate 100 MG CAPSULE PO (10:27)
--- NOTE | 2023-12-20 12:59 | MHC.CLN ---
NUTRITION CONSULT FOR REPORTED WEIGHT LOSS. REVIEW OF WEIGHT HX SHOW WIDE DIFFERENCE IN RECORDED WEIGHTS. COMPARING CURRENT WEIGHT TO PRIOR ADM 03/17/23=124.8#, NO SIGNIFICANT WEIGHT CHANGE. CURRENT INTAKE APPEARS GOOD. DIET=REGULAR. NO NEW NUTRITION INTERVENTIONS.
[2023-12-20] MEDS: Enoxaparin Sodium 40 MG/0.4 ML SYRINGE SUBCUT (14:36)
[2023-12-20] MEDS: rOPINIRole HCL 1 MG TABLET PO (19:39)
[2023-12-20] MEDS: OLANZapine 10 MG TABLET PO (19:40)
[2023-12-20] MEDS: cloNIDine HCL 0.2 MG TABLET PO (19:40)
[2023-12-21] VITALS (9 sets, daily range): BP systolic 108–136; BP diastolic 68–76; PULSE 66–90; RESP 18–19; TEMP 36.2–36.5; O2SAT 89–94
[2023-12-21] MEDS: guaiFENesin 100 MG/5 ML LIQUID PO ×4 (04:09→20:39)
[2023-12-21] MEDS: Omeprazole 20 MG CAPSULE.DR PO (05:54)
[2023-12-21] MEDS: 0.9 % Sodium Chloride Flush 3 ML SYRINGE IVFLUSH ×3 (07:20→20:29)
[2023-12-21] MEDS: Tiotropium Bromide 2.5 mcg 1 PUFF/2.5 MCG MIST.INHAL 2 PUFF INHALE (08:20)
[2023-12-21] MEDS: Ferrous Sulfate 324 MG TABLET.DR PO (08:21)
[2023-12-21] MEDS: Cyanocobalamin (Vitamin B-12) 1,000 MCG TABLET 1000 MCG PO (08:21)
[2023-12-21] MEDS: Benzonatate 100 MG CAPSULE PO ×2 (08:21→18:36)
[2023-12-21] MEDS: Gabapentin 400 MG CAPSULE PO ×3 (08:21→20:40)
[2023-12-21] MEDS: Lithium Carbonate ER 450 MG TABLET.ER PO ×3 (08:21→20:41)
[2023-12-21] MEDS: valACYclovir HCL 500 MG TABLET PO (08:21)
[2023-12-21] MEDS: methylPREDNISolone Sod Succ 125 MG/2 ML VIAL 60 MG IVPUSH ×3 (10:35→20:34)
[2023-12-21] MEDS: Albuterol Sulfate (0.083%) 2.5 MG/3 ML VIAL.NEB INHALE ×3 (11:29→19:46)
--- NOTE | 2023-12-21 12:24 | HO.PM.IMPN ---
Subjective Subjective Date of Service: 12/21/23 Interval History: No acute issues overnight. States breathing minimally improved Review of Systems Admits to shortness of breath with minimal exertion Denies chest pain Denies nausea vomiting diarrhea Denies fever chills Physical Exam Vital Signs: Vital Signs: Last Vital Signs Temp 97.2 F 12/21/23 07:31 Pulse 86 12/21/23 11:29 Resp 18 12/21/23 11:29 BP 108/68 12/21/23 07:31 Pulse Ox 92 12/21/23 07:31 O2 Del Method Nasal Cannula 12/21/23 07:31 O2 Flow Rate 2 12/21/23 07:31 Oxygen Flow Rate 2 12/19/23 11:30 BMI result Body Mass Index 44.1 Objective Data Active Medications Acetaminophen (Acetaminophen 325 Mg Tablet) 650 mg PO Q6H PRN PRN Reason: Pain, Mild (Pain Scale 1-3) Last Admin: 12/20/23 06:19 Dose: 650 mg Documented By: STEPH Al Hydroxide/Mg Hydroxide (Magnesium Hydrox/Alum Hydrox 30 Ml Oral.Susp) 30 ml PO Q4H PRN PRN Reason: Heartburn/Nausea Albuterol Sulfate (Albuterol Sulfate 90 Mcg 8 Gm Inhaler) 2 puff INHALE Q4H PRN PRN Reason: shortness of breath or wheezing Albuterol Sulfate (Albuterol Sulfate (0.083%) 2.5 Mg/3 Ml Vial.Neb) 2.5 mg INHALE RQ4H WHILE AWAKE [facility] Last Admin: 12/21/23 11:29 Dose: 2.5 mg Documented By: FABIANO Albuterol/Ipratropium (Albuterol/Iprat 2.5/0.5mg 3 Ml Ampul.Neb) 3 ml INHALE Q2H PRN PRN Reason: Shortness Of Breath Or Wheezing Benzonatate (Benzonatate 100 Mg Capsule) 100 mg PO TID PRN PRN Reason: Cough Last Admin: 12/21/23 08:21 Dose: 100 mg Documented By: MERVIN Clonidine HCl (Clonidine Hcl 0.2 Mg Tablet) 0.2 mg PO BEDTIME [facility]; Protocol Last Admin: 12/20/23 19:40 Dose: 0.2 mg Documented By: CRISTINA Cyanocobalamin (Cyanocobalamin (Vitamin B-12) 1,000 Mcg Tablet) 1,000 mcg PO DAILY [facility] Last Admin: 12/21/23 08:21 Dose: 1,000 mcg Documented By: MERVIN Enoxaparin Sodium (Enoxaparin Sodium 40 Mg/0.4 Ml Syringe) 40 mg SUBCUT Q24H [facility] Last Admin: 12/20/23 14:36 Dose: 40 mg Documented By: QUINCY Ferrous Sulfate (Ferrous Sulfate 324 Mg Tablet.) 324 mg PO DAILY [facility] Last Admin: 12/21/23 08:21 Dose: 324 mg Documented By: MERVIN Gabapentin (Gabapentin 400 Mg Capsule) 400 mg PO TID [facility] Last Admin: 12/21/23 08:21 Dose: 400 mg Documented By: MERVIN Guaifenesin (Guaifenesin 100 Mg/5 Ml Liquid) 5 ml PO Q4H PRN PRN Reason: Cough Last Admin: 12/21/23 08:21 Dose: 5 ml Documented By: MERVIN [place] Carbonate ([place] Carbonate Er 450 Mg Tablet.Er) 450 mg PO TID [facility] Last Admin: 12/21/23 08:21 Dose: 450 mg Documented By: MERVIN Loratadine (Loratadine 10 Mg Tablet) 10 mg PO DAILY PRN PRN Reason: Allergy Symptoms Melatonin (Melatonin 3 Mg Tablet) 6 mg PO BEDTIME PRN PRN Reason: Insomnia Methylprednisolone Sodium Succinate (Methylprednisolone Sod Succ 125 Mg/2 Ml Vial) 60 mg IVPUSH Q6H [facility] Last Admin: 12/21/23 10:35 Dose: 60 mg Documented By: MERVIN Nicotine Polacrilex (Nicotine Polacrilex 2 Mg Gum) 2 mg BUCCAL Q2H PRN PRN Reason: Nicotine Cravings Olanzapine (Olanzapine 10 Mg Tablet) 10 mg PO BEDTIME [facility] Last Admin: 12/20/23 19:40 Dose: 10 mg Documented By: CRISTINA Omeprazole (Omeprazole 20 Mg Capsule.) 20 mg PO DAILY@0630 [facility] Last Admin: 12/21/23 05:54 Dose: 20 mg Documented By: DOBROB Ondansetron HCl (Ondansetron Hcl 4 Mg/2 Ml Vial) 4 mg IVPUSH Q8H PRN PRN Reason: Nausea and Vomiting Ropinirole HCl (Ropinirole Hcl 1 Mg Tablet) 1 mg PO BEDTIME [facility] Last Admin: 12/20/23 19:39 Dose: 1 mg Documented By: CRISTINA Sodium Chloride (0.9 % Sodium Chloride Flush 3 Ml Syringe) 3 ml IVFLUSH QSHIFT [facility] Last Admin: 12/21/23 07:20 Dose: 3 ml Documented By: MERVIN Tiotropium [place] (Tiotropium [place] 2.5 Mcg 1 Puff/2.5 Mcg Mist.Inhal) 2 puff INHALE RDAILY [facility] Last Admin: 12/21/23 08:20 Dose: 2 puff Documented By: ARELIS Valacyclovir HCl (Valacyclovir Hcl 500 Mg Tablet) 500 mg PO DAILY [facility] Last Admin: 12/21/23 08:21 Dose: 500 mg Documented By: MERVIN Labs 12/19/23 10:24 12/19/23 10:24 Assessment and Plan (1) COPD exacerbation: Status: Acute Plan A 53-year-old female with moderate persistent asthma, COPD, obstructive sleep apnea on CPAP, GERD, and mood disorder, along with tobacco use disorder, is being admitted for acute hypoxic respiratory failure precipitated by moderate persistent asthma and acute COPD exacerbation. 1.Acute hypoxic respiratory failure due to COPD exacerbation and moderate persistent asthma, improving but not optimal -titrate O2 to maintain sats greater than or equal to 92% -still extremely wheezy; will increase Solu-Medrol to 60 q.6 for the next 24 hours -DuoNebs q.4 hours p.r.n. 2.GERD: -PPI as ordered -adjust as indicated 3.Bipolar/mood disorder: -[place]. -Olanzapine. Lovenox Full Code need for inpatient: ongoing treatment acute respiratory failure due to COPD/asthma exacerbation with IV steroid therapy, oxygen titration, and close monitoring. Quality Stroke Does the patient have a stroke diagnosis?: No VTE Prior VTE?: No VTE Risk Level:: Medical - moderate - high VTE Device Contraindication: Treatment Not Indicated VTE Drug Contraindication: N/A - Med Ordered
[2023-12-21] MEDS: Albuterol Sulfate 90 MCG 8 GM INHALER 2 PUFF INHALE (13:57)
[2023-12-21] MEDS: Enoxaparin Sodium 40 MG/0.4 ML SYRINGE SUBCUT (13:58)
[2023-12-21] MEDS: OLANZapine 10 MG TABLET PO (20:40)
[2023-12-21] MEDS: cloNIDine HCL 0.2 MG TABLET PO (20:41)
[2023-12-21] MEDS: rOPINIRole HCL 1 MG TABLET PO (20:41)
[2023-12-21] MEDS: Acetaminophen 325 MG TABLET 650 MG PO (23:44)
[2023-12-22 03:20] VITALS: BP 136/68; PULSE 74; RESP 18; TEMP 36.3; O2SAT 92
[2023-12-22] MEDS: guaiFENesin 100 MG/5 ML LIQUID PO (03:29)
[2023-12-22] MEDS: methylPREDNISolone Sod Succ 125 MG/2 ML VIAL 60 MG IVPUSH ×2 (03:30→08:36)
[2023-12-22 05:39] LABS: MANUAL DIFF FLAG NO
[2023-12-22 05:42] LABS: Basophils Percent Auto 0.1 % (0-2); Hematocrit 46.1 % (37.0-47.0); Hemoglobin 14.4 g/dl (12.0-16.0); Imm Gran Abs Auto 0.05 X10*3/uL (0.00-0.03); Imm Gran Pct Auto 0.5 % (0.0-0.4); Lymphocytes Absolute Auto 0.9 X10*3/uL (1.2-4.9); Lymphocytes Percent Auto 10.2 % (20-40); Mean Corpuscular HGB Conc 31.2 g/dl (31.0-35.0); Mean Corpuscular Hemoglobin 30.3 pg (27.0-33.0); Mean Corpuscular Volume 97.1 fL (80.0-98.0); Mean Platelet Volume 10.5 fL (9.4-12.3); Monocytes Absolute Auto 0.2 X10*3/uL (0.1-1.2); Monocytes Percent Auto 2.1 % (2-11); Neutrophils Absolute Auto 7.9 x10*3/uL (2.0-8.3); Neutrophils Percent Auto 87.1 % (45-73); Platelet Count 249 X10*3/uL (160-400); Red Blood Count 4.75 X10*6/uL (4.20-5.50); Red Cell Distribution Width 12.9 % (11.0-16.0); White Blood Count 9.1 X10*3/uL (4.8-10.8)
[2023-12-22] MEDS: Omeprazole 20 MG CAPSULE.DR PO (05:42)
[2023-12-22 06:07] LABS: Alanine Aminotransferase 13 U/L (0-31); Albumin Level 4.1 g/dL (3.5-5.0); Alkaline Phosphatase 66 U/L (39-117); Anion Gap 13 (12-20); Aspartate Amino Transferase 9 U/L (5-31); Bilirubin Total 0.1 mg/dL (0.0-1.0); Blood Urea Nitrogen 12 mg/dL (9-16); Calcium 10.1 mg/dL (8.4-10.2); Carbon Dioxide 30 mmol/L (22-29); Chloride 101 mmol/L (96-108); Creatinine Clr Calc Pharmacy 131.5; Estimated Glomerular Filt Rate > 60; Glucose Fasting 144 mg/dL (60-99); Potassium 4.3 mmol/L (3.3-5.1); Sodium 140 mmol/L (135-145); Total Protein 6.7 g/dL (6.5-8.0)
[2023-12-22 07:31] VITALS: BP 125/70; PULSE 69; RESP 16; TEMP 36.2; O2SAT 92
[2023-12-22] MEDS: 0.9 % Sodium Chloride Flush 3 ML SYRINGE IVFLUSH (07:40)
[2023-12-22 07:46] VITALS: PULSE 61; RESP 16; O2SAT 90
[2023-12-22] MEDS: Albuterol Sulfate (0.083%) 2.5 MG/3 ML VIAL.NEB INHALE ×2 (07:46→11:38)
[2023-12-22] MEDS: Tiotropium Bromide 2.5 mcg 1 PUFF/2.5 MCG MIST.INHAL 2 PUFF INHALE (08:02)
[2023-12-22 08:03] VITALS: PULSE 75; RESP 16; O2SAT 92
[2023-12-22] MEDS: Benzonatate 100 MG CAPSULE PO (08:34)
[2023-12-22] MEDS: Lithium Carbonate ER 450 MG TABLET.ER PO (08:35)
[2023-12-22] MEDS: valACYclovir HCL 500 MG TABLET PO (08:35)
[2023-12-22] MEDS: Cyanocobalamin (Vitamin B-12) 1,000 MCG TABLET 1000 MCG PO (08:35)
[2023-12-22] MEDS: Ferrous Sulfate 324 MG TABLET.DR PO (08:35)
[2023-12-22] MEDS: Gabapentin 400 MG CAPSULE PO (08:36)
--- NOTE | 2023-12-22 11:26 | MHC.CM.PN ---
Addendum entered by Beatriz Abad 12/22/23 12:58: DC info has been sent to [facility]. Original Note: Patient is discharged to home today. [facility] will resume home services. Transportation home has been arranged. The [facility] [place] booked to transport at 1:30pm.
[2023-12-22 11:39] VITALS: PULSE 80; RESP 16; O2SAT 90
--- NOTE | 2023-12-22 12:43 | P.DS_ITS ---
DS: Providers Provider Date of Service: 12/22/23 Date of admission: 12/19/23 12:57 Date of discharge: 12/22/23 Primary care physician: Mike Malone MD DS: Diagnosis Discharge Diagnosis (1) COPD exacerbation: Status: Acute DS: Summary Hospital Course Hospital Course: 53-year-old female with moderate persistent asthma, COPD, obstructive sleep apnea on CPAP, GERD, and mood disorder, along with tobacco use disorder, presents with several days of increasing shortness of breath and cough but no sputum production. She reports chills but no fever and no sick contact. She has noted wheezing and has been using inhalers more than usual without relief. She stopped smoking 3 days ago. Her condition worsened, prompting her to call EMS. Upon assessment, she was noted to be hypoxic with an oxygen saturation of 88% on room air. Flu, RSV, and SARS tests came back negative. Chest X-ray shows no pneumonia. She is being treated for acute asthma/COPD exacerbation. Her management thus far has consisted of oxygen therapy, bronchodilators via nebulizer, and IV corticosteroids. Hospital Course Patient admitted to the general medical floor and started on DuoNeb therapy, IV pulse dose steroids supplemental O2. Doxycycline was added given history of C OPD and positive mucus production. Over the next 48 hours she was weaned off her O2 and is ambulating without issue. At this point in time she is medically acceptable for discharge to complete an oral course of doxycycline and a prednisone taper. Time Attestation Discharge coordination time: Greater than 30 minutes Quality: Safe Use of Opioids Does Pt have an Active Cancer Diagnosis on the Problem List?: No Quality: Stroke Does the patient have a stroke diagnosis?: No Physical Exam Vital Signs: Vital Signs: Last Vital Signs Temp 97.1 F 12/22/23 07:31 Pulse 80 12/22/23 11:39 Resp 16 12/22/23 11:39 BP 125/70 12/22/23 07:31 Pulse Ox 92 12/22/23 07:31 O2 Del Method Room Air 12/22/23 07:31 O2 Flow Rate 1.5 12/21/23 19:15 Oxygen Flow Rate 2 12/19/23 11:30 BMI result Body Mass Index 44.1 Const: Other: Awake alert no acute distress General: alert Nutritional Appearance: well nourished Orientat ion/consciousness: patient oriented x3 HEENT: Head: Yes normal to inspection General nose exam: Normal external nose present Face and sinus: Yes normal facial exam Mouth: Normal oral and palatal mucosa present Throat: Yes posterior oropharynx normal Neck: Neck: Yes normal visual inspection Resp: Other: Good aeration to the bases. Scant expiratory wheezes bilaterally at the bases Effort & Inspection: audible wheezes and Actively coughing Auscultation: wheezes Cardio: Other: No S4; positive S1-S2; no S3 murmurs rubs or gallops Jugular venous distension: no JVD Rate: regular rate Rhythm: regular rhythm GI: Other: Soft nontender nondistended normoactive bowel sounds Inspection: Yes normal to inspection Palpation (GI): Soft to palpation Auscultation: normal bowel sounds Neuro: Other: Cranial nerves 2-12 grossly intact as tested. Motor is 5/5 all extremities. Sensation is intact. Cognition appropriate. Gait normal General: patient oriented x3 Extrem: Other: No edema bilaterally DS: Data Data Completed and Pending Completed studies during hospitalization [Text1]: Procedures Assistance with Respiratory Ventilation, Less than 24 Consecutive Hours, Continuous Positive Airway Pressure (11/18/23) Drainage of Left Parotid Gland, Percutaneous Approach, Diagnostic (11/09/21) Drainage of Neck, Percutaneous Approach, Diagnostic (03/17/22) Excision of Left Parotid Gland, Percutaneous Approach, Diagnostic (03/17/22) Introduction of Remdesivir Anti-infective into Peripheral Vein, Percutaneous Approach, [employer] 5 (06/01/22) Labs on day of discharge: Laboratory Results - last 24 hr 12/22/23 05:30 WBC 9.1 RBC 4.75 Hgb 14.4 Hct 46.1 MCV 97.1 MCH 30.3 MCHC 31.2 RDW 12.9 Plt Count 249 MPV 10.5 Immature Gran % (Auto) 0.5 H Neut % (Auto) 87.1 H Lymph % (Auto) 10.2 L [place] % (Auto) 2.1 Eos % (Auto) 0.0 Baso % (Auto) 0.1 Lymph # (Auto) 0.9 L [place] # (Auto) 0.2 Eos # (Auto) 0.0 Baso # (Auto) 0.0 Abs Immat Gran (auto) 0.05 H Absolute Neuts (auto) 7.9 Absolute Nucleated RBC 0.000 Nucleated RBC % (auto) 0.0 Sodium 140 Potassium 4.3 Chloride 101 Carbon Dioxide 30 H Anion Gap 13 BUN 12 Creatinine 0.65 Estim Creat Clear Calc 131.5 Estimated GFR > 60 Fasting Glucose 144 H Calcium 10.1 Total Bilirubin 0.1 AST 9 ALT 13 Alkaline Phosphatase 66 Total Protein 6.7 Albumin 4.1 Discharge Plan Discharge Anticipated Discharge Date/Time: 12/22/23 12:38 Patient Disposition: Home Health Service Discharge Diagnosis: COPD exacerbation Referrals: [facility] [Outside] - 1 Week Mike Malone MD [Primary Care Provider] - 1 Week Discharge Medications: New doxycycline hyclate 100 mg tablet 100 mg PO BID Qty: 14 0RF prednisone 10 mg tablet See Rx Instructions .Route .COMPLEX Qty: 45 0RF Rx Instructions: 10 mg orally; 5 tabs p.o. daily x3 days; 4 tabs p.o. daily x3 days; 3 tabs daily x3 days; 2 tabs daily x3 days; 1 tab daily x3 days Continued ropinirole 1 mg Tablet 1 mg PO BEDTIME Qty: 30 0RF olanzapine 10 mg Tablet 10 mg PO BEDTIME Qty: 30 0RF clonidine HCl 0.2 mg Tablet 0.2 mg PO BEDTIME Qty: 30 0RF Protocol: Hold for SBP< HOLD for SBP < : 90 albuterol sulfate [Ventolin HFA] 90 mcg/actuation Hfa Aerosol Inhaler 2 puff inhalation Q4H PRN (Reason: shortness of breath or wheezing) Qty: 6.7 0RF tiotropium bromide [Spiriva with HandiHaler] 18 mcg Capsule, W/Inhalation Device 18 mcg inhalation RDAILY Qty: 20 0RF ferrous sulfate 324 mg (65 mg iron) Tablet,Delayed Release (Dr/Ec) 324 mg PO DAILY Qty: 30 0RF cetirizine 10 mg Tablet 10 mg PO DAILY PRN (Reason: Allergy Symptoms) nicotine (polacrilex) 2 mg Gum 2 mg BUCCAL Q2H PRN (Reason: Nicotine Cravings) melatonin 3 mg Tablet 3 mg PO BEDTIME PRN (Reason: Insomnia) valacyclovir 500 mg Tablet 500 mg PO DAILY pantoprazole 40 mg Tablet,Delayed Release (Dr/Ec) 40 mg PO DAILY@0630 lithium carbonate 450 mg tablet extended release 450 mg PO TID cyanocobalamin (vitamin B-12) [Vitamin B-12] 1,000 mcg tablet 1,000 mcg PO DAILY ipratropium-albuterol 0.5 mg-3 mg(2.5 mg base)/3 mL solution for nebulization 3 ml inhalation RQ6H PRN (Reason: Shortness Of Breath Or Wheezing) gabapentin 400 mg Capsule 400 mg PO TID Discharge Orders: Discharge Order (Routine); Ordered 12/22/23 Ordered By: Maninder Jett Diet: Advance to usual diet Activity on Discharge: As tolerated Stand Alone Forms: Patient Portal Discharge page Care Plan Goals: Resume all medications as taken prior to hospitalization Health Concerns: Complete course of doxycycline 100 mg twice daily for 1 week; prednisone taper as outlined Plan of Treatment: Follow-up with PCP next available. No smoking Assessment: See discharge summary
--- NOTE | 2023-12-22 12:49 | P.F2F_ITS ---
Service Date Service Date: 12/22/23 Encounter Date of encounter: 12/22/23 Encounter: Acute hospitalization Reasons for Services Signs and symptoms assessed: Acute COPD exacerbation; needs to be followed for breath sounds an O2 saturation as well as med compliance Reason for long-term: medication management, teach disease management and other (Assess respiratory status including O2 sats) Homebound: Leaving the home is medically contraindicated at this time without the asist of a device and/or another person due th the listed conditions above and below. Reason homebound: unsteady gait / fall risk and unable to drive Certification: Based on the above findings, I certify that this patient is confined to the home and needs intermittent long-term care, physical therapy and/or speech therapy, or continues to need occupational therapy. The patient is under my care, and I have initiated the establishment of the plan of care. The patient will be followed by a physician who will periodically review the plan of care. Time Spent With Patient Time: Total time managing care of this patient today ____ minutes.
--- NOTE | 2023-12-29 10:13 | P.CDIM_ITS ---
PROVIDER RESPONSE TEXT: To clarify, the appropriate diagnosis supported by the clinical indicators: Obesity Due to excess calories QUERY TEXT: PHYSICIAN'S DOCUMENTATION REQUEST Date of Query: 12/28/2023 12:43 PM EST Patient Name: Bhavana Garza Admit Date: 12/19/2023 Dear Davi Tejada, A review of the medical record indicates additional documentation may be needed. Please review below and update the documentation accordingly. Clinical Indicators: Height: ( ) 5'5 Weight: ( ) 120.2 kg BMI: ( ) 44.1 If possible, please provide an associated diagnosis related to the abnormal BMI, such as: Overweight Obesity Due to excess calories Obesity Drug induced Obesity Due to other cause Specify the other cause Severe or Morbid Obesity With alveolar hypoventilation Severe or Morbid Obesity Without alveolar hypoventilation BMI is not significant Other (explain) Clinically unable to determine (explain) Thank you, Astrid Byrne RN Use of terms such as suspected, likely, concern for, or probable (associated with a specific diagnosi s that is being evaluated, monitored, or treated as if it exists) are acceptable and can be coded in the inpatient se tting, when documented at the time of discharge. Please use your independent medical judgment in providing your response. THIS QUERY IS PART OF THE PERMANENT MEDICAL RECORD
== END 2023-12-22 13:15 | disposition home health service (06) | DRG 140 ==
LOC: HO.ED 12:34 → HO.EDOVER 13:05 → HO.S3 14:21
PROVIDERS: Admitting Provider Internal Medicine; Emergency Provider Emergency Medicine; PCP Internal Medicine; Visit Provider Hospitalist
DX: J44.1 Chronic obstructive pulmonary disease with (acute) exacerbation (principal); J96.01 Acute respiratory failure with hypoxia; K21.9 Gastro-esophageal reflux disease without esophagitis; F31.9 Bipolar disorder, unspecified; G62.9 Polyneuropathy, unspecified; E66.09 Other obesity due to excess calories; J45.41 Moderate persistent asthma with (acute) exacerbation; F17.210 Nicotine dependence, cigarettes, uncomplicated; Z20.822 Contact with and (suspected) exposure to COVID-19; Z68.41 Body mass index [BMI] 40.0-44.9, adult; Z71.3 Dietary counseling and surveillance; Z71.6 Tobacco abuse counseling; Z91.040 Latex allergy status; Z79.899 Other long term (current) drug therapy
CPT/HCPCS: 0241U; 36415; 71045; 80053; 80178; 85025; 94640; 94660; 99221; 99285; J1650; J2920; J2930

== ENCOUNTER → 2023-12-19 12:57 | Outpatient (BNV) | payer MEDICAID, SELFPAY | PROVIDERS: Admitting Provider Internal Medicine; Emergency Provider Emergency Medicine; Visit Provider Internal Medicine | DX: J44.1 Chronic obstructive pulmonary disease with (acute) exacerbation (principal) | CPT/HCPCS: 99223; 99232; 99233; 99238; G0180 ==

== ENCOUNTER 2023-12-28 13:26 | Inpatient (IN) | payer MEDICAID, OTHER, SELFPAY ==
[2023-12-28] VITALS (8 sets, daily range): BP systolic 108–160; BP diastolic 69–93; PULSE 66–108; RESP 15–25; TEMP 36.9–37.2; O2SAT 87–93; BMI 42.0
--- NOTE | 2023-12-28 12:12 | ECG_ITS ---
Test Reason : od Blood Pressure : / mmHG Vent. Rate : 064 BPM Atrial Rate : 064 BPM P-R Int : 150 ms QRS Dur : 086 ms QT Int : 424 ms P-R-T Axes : 042 045 047 degrees QTc Int : 437 ms Normal sinus rhythm Nonspecific ST and T wave abnormality Borderline ECG When compared with ECG of 28-DEC-2023 18:11, No significant change was found Referred By: Oswaldo Hollis Electronically Signed By:ALEJANDRO MCCLELLAN
--- NOTE | 2023-12-28 13:46 | ECG_ITS ---
Test Reason : OVERDOSE Blood Pressure : / mmHG Vent. Rate : 087 BPM Atrial Rate : 087 BPM P-R Int : 130 ms QRS Dur : 094 ms QT Int : 320 ms P-R-T Axes : 018 017 029 degrees QTc Int : 385 ms Normal sinus rhythm Nonspecific T wave abnormality Borderline ECG When compared with ECG of 25-NOV-2023 13:54, No significant change was found Referred By: Mary Beth Cisse Electronically Signed By:ALEJANDRO MCCLELLAN
--- NOTE | 2023-12-28 14:02 | ED_ITS ---
HPI - Overdose General Chief Complaint: Overdose Stated Complaint: SEC 12,SI,OD ATTEMPT [id number] GABPENTIN PER EMS Time Seen by Provider: 12/28/23 13:45 Source: patient and old records reviewed Mode of arrival: EMS Limitations: no limitations History of Present Illness HPI Narrative: 53 yo female with PMH of COPD, bipolar, anxiety, UTI, PTSD, cocaine, pneumonia, borderline personality disorder here with c/o feeling suicidal - smoked crack last night then she thinks somewhere between 12 and 1 she took a handful of 400mg gabapentin. The patient notes she wants to kill herself. She is laughing. complaint: intentional overdose Onset (ago): hour(s) (vague sometime between 12 and ) Intent: suicide attempt How Overdose Was Discovered: called family/friend Context: Intentional Overdose: drug/ETOH problems Associated symptoms: depression Treatments Prior to Arrival: none Related Data Home Medications Medication Instructions Recorded Confirmed lithium carbonate 450 mg 450 mg PO TID 05/14/23 12/19/23 tablet,extended release cyanocobalamin (vitamin B-12) 1,000 mcg PO DAILY 06/11/23 12/19/23 1,000 mcg tablet (Vitamin B-12) ipratropium 0.5 mg-albuterol 3 mg 3 ml inhalation RQ6H PRN Shortness 06/11/23 12/19/23 (2.5 mg base)/3 mL nebulization Of Breath Or Wheezing soln gabapentin 400 mg capsule 400 mg PO TID 10/24/23 12/19/23 cetirizine 10 mg tablet 10 mg PO DAILY PRN Allergy Symptoms 12/19/23 12/19/23 melatonin 3 mg tablet 3 mg PO BEDTIME PRN Insomnia 12/19/23 12/19/23 nicotine (polacrilex) 2 mg gum 2 mg buccal Q2H PRN Nicotine 12/19/23 12/19/23 Cravings pantoprazole 40 mg tablet,delayed 40 mg PO DAILY@0630 12/19/23 12/19/23 release valacyclovir 500 mg tablet 500 mg PO DAILY 12/19/23 12/19/23 Previous Rx's Medication Instructions Recorded albuterol sulfate 90 mcg/actuation 2 puff inhalation Q4H PRN 03/22/23 aerosol inhaler (Ventolin HFA) shortness of breath or wheezing #6.7 grams clonidine HCl 0.2 mg tablet 0.2 mg PO BEDTIME #30 tabs 03/22/23 ferrous sulfate 324 mg (65 mg 324 mg PO DAILY #30 tabs 03/22/23 iron) tablet,delayed release olanzapine 10 mg tablet 10 mg PO BEDTIME #30 tabs 03/22/23 ropinirole 1 mg tablet 1 mg PO BEDTIME #30 tabs 03/22/23 tiotropium bromide 18 mcg capsule 18 mcg inhalation RDAILY #20 03/22/23 with inhalation device (Spiriva inhalations with HandiHaler) doxycycline hyclate 100 mg tablet 100 mg PO BID #14 tabs 12/22/23 prednisone 10 mg tablet See Rx Instructions .Route 12/22/23 .COMPLEX #45 tabs Allergies Allergy/AdvReac Type Severity Reaction Status Date / Time aspirin Allergy Mild Anaphylaxis Verified 12/28/23 13:41 ampicillin Allergy Rash Verified 12/28/23 13:41 Penicillins Allergy Anaphylaxis Verified 12/28/23 13:41 latex AdvReac Rash Verified 12/28/23 13:41 Latex, Natural Rubber AdvReac Rash Verified 12/28/23 13:41 seafood AdvReac Anaphylaxis Verified 12/28/23 13:41 Sulfa (Sulfonamide AdvReac Hives Verified 12/28/23 13:41 Antibiotics) Review of Systems 2 Review of Systems: Constitutional : No Fever, No Chills ENT/Mouth : No Ear Pain, No Nasal Congestion, No sore throat Eyes: No Eye Pain, No Swelling, No Redness Cardiovascular : No Chest Pain, No SOB Respiratory : No Cough, No Sputum, No Dyspnea, pos wheezing Gastrointestinal : No Nausea, No Vomiting, No Diarrhea, No Hematochezia, No Melena Genitourinary : No Dysuria, No Urinary Frequency, No Hematuria Musculoskeletal : No Myalgias Skin : No Skin Lesions, No rash Neuro : No Weakness, No Numbness, No Paresthesias, No Dizziness, No Headache Psych : positive Anxiety, positive Depression, positive SI no HI Heme/Lymph: No Lymphadenopathy Endocrine : No Polyuria, No Polydipsia All other systems reviewed and are negative [facility] Past Medical History Attestation statement: The following information was validated with the patient. Source: old records reviewed Medical History Overdose on Tylenol Suicide attempt Asthma COPD (chronic obstructive pulmonary disease) Chronic lung disease Neoplasm of parotid gland Depression 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 Drug abuse Bipolar I disorder Post traumatic stress disorder (PTSD) Tobacco use disorder FABIOLA (obstructive sleep apnea) Borderline personality disorder Intermittent explosive disorder Asthma exacerbation in COPD Herpes Tobacco use Bipolar disorder COPD (chronic obstructive pulmonary disease) Surgical History History of ankle surgery History of back surgery Hx of cholecystectomy History of appendectomy Family History Family History Mother COPD (chronic obstructive pulmonary disease) Social History Social History Household Members: None Household Members Other:: Senior Living in [place] Housing: Apartment Housing Other:: Sleeps on the couch at [facility] house Do you presently have visiting nurse or other home services: Yes Unable to assess alcohol history related to: Unknown Alcohol intake: current Alcohol intake frequency: holidays/special occasions only Alcohol type: hard liquor Comment: pt has sitter in room Patient Tobacco Use Status: Current everyday Tobacco user Tobacco use type: Cigar Cigarette Packs Per Day: 2 Cigarettes Per Day: 40.0 Years Smoked: 35 Smoked in Last 30 Days: Yes e-Cigarette/Vaping Use: Never Used Second Hand Smoke Exposure: Yes Use of substances other than those prescribed or required for medical reasons: Yes Substance Use Type: Crack/Cocaine Advance Directives: Yes Advance Directives on File: Yes Advance Directives Date on File: 06/17/22 service: No Current occupational status: unemployed and disabled Sexual orientation: Straight/Heterosexual Physical Exam 2 Vital Signs: Vital Signs: Last Vital Signs Temp 99.0 F 12/28/23 13:35 Pulse 108 H 12/28/23 14:14 Resp 25 H 12/28/23 14:14 BP 140/77 H 12/28/23 13:35 Pulse Ox 92 12/28/23 13:35 O2 Del Method Room Air 12/28/23 13:35 BMI result Body Mass Index 42.0 Appearance: Alert. Oriented X3. No acute distress. Laughing Eyes: Pupils equal, round and reactive to light. ENT: Pharynx normal. Neck: Normal inspection. Neck supple. CVS: Normal heart rate and rhythm. Pulses normal. Respiratory: No respiratory distress. Breath sounds diffuse exp wheezes Abdomen: Soft and non-tender. Skin: Skin warm and dry. Normal skin color. Normal skin turgor. Extremities: No lower extremity edema. No calf ttp Neuro: Oriented X 3. No motor deficit. No sensory deficit. Cn2-12 intact Course Course Course Narrative: Physician observation started at 605pm. Patient placed in physician observation because the patient needed more time for CARE team to assess the need for psych admission. At the time observation was started the patient's vitals were stable, patient is alert and oriented., Neuro: nonfocal, CV RRR, Lungs improved, wheezing improved. Medications Administered Discontinued Medications Generic Name Dose Route Start Last Admin Trade Name Freq PRN Reason Stop Dose Admin Albuterol Sulfate 2.5 mg/ 0 mg 12/28/23 14:10 12/28/23 14:13 Albuterol/Ipratropium 3 ml INHALE 12/28/23 14:11 1 dose ONCE ONE Administration Medical Decision Making Medical Decision Making [facility] Narrative: 53 yo female with PMH of COPD, bipolar, anxiety, UTI, PTSD, cocaine, pneumonia, borderline personality disorder here with c/o intentional overdose in setting of SI - discussion with poison control just observation for sedation. The patient will also need a neb treatment which is chronic for the patient. Labs, EKG, tox labs, neb ordered. once medically cleared will have CARE team see the patient. Differential Diagnosis Differential Diagnoses: The differential diagnosis associated with the presentation includes drug abuse, SI attempt Admission/Observation Consideration of admission/observation: Escalation of care including admission/observation considered observe until CARE team sees patient Lab Data [facility] Lab Attestation statement: I reviewed the patient's lab results. 12/28/23 14:04 12/28/23 14:04 Labs: Lab Results 12/28/23 Range/Units 14:04 WBC 11.3 H (4.8-10.8) X10*3/uL RBC 5.39 (4.20-5.50) X10*6/uL Hgb 16.3 H (12.0-16.0) g/dl Hct 50.6 H (37.0-47.0) % MCV 93.9 (80.0-98.0) fL MCH 30.2 (27.0-33.0) pg MCHC 32.2 (31.0-35.0) g/dl RDW 13.0 (11.0-16.0) % Plt Count 370 D (160-400) X10*3/uL MPV 9.3 L (9.4-12.3) fL Immature Gran % (Auto) 1.2 H (0.0-0.4) % Neut % (Auto) 84.0 H (45-73) % Lymph % (Auto) 12.3 L (20-40) % Coal % (Auto) 1.9 L (2-11) % Eos % (Auto) 0.2 (0-4) % Baso % (Auto) 0.4 (0-2) % Lymph # (Auto) 1.4 (1.2-4.9) X10*3/uL Coal # (Auto) 0.2 (0.1-1.2) X10*3/uL Eos # (Auto) 0.0 (0.0-0.4) X10*3/uL Baso # (Auto) 0.1 (0.0-0.2) X10*3/uL Abs Immat Gran (auto) 0.13 H (0.00-0.03) X10*3/uL Absolute Neuts (auto) 9.5 H (2.0-8.3) x10*3/uL Absolute Nucleated RBC 0.000 (0.0-0.012) X10*3/uL Nucleated RBC % (auto) 0.0 (0.0-0.2) /100WBC Salicylates < 5.0 L (15-30) mg/dL Acetaminophen < 3 (<30) mcg/mL Independent Interpretation I performed an independent interpretation of an: EKG Interpretation: Rate: 87 Rhythm: NSR [place]: normal Normal P waves. Normal GABBIE. Normal QRS complex. ST T wave : normal no KYRIE qTC: 385 prior studies: no acute ischemia The study has been interpreted contemporaneously by me. . Independent Historian Clinical information obtained from an independent historian. History obtained from or confirmed by: EMS External Record Review External record reviewed: Inpatient record Social Determinants Patient?s care significantly limited by Social Determinants of Health including: Low income and Problems related to primary support group Discharge Plan Discharge Clinical Impression: Acute bronchospasm, Cocaine abuse Intentional overdose Qualifiers: Encounter type: initial encounter Qualified Code(s): T50.902A - Poisoning by unspecified drugs, medicaments and biological substances, intentional self-harm, initial encounter Patient Disposition: Still a Patient Prescriptions: No Action ropinirole 1 mg Tablet 1 mg PO BEDTIME Qty: 30 0RF olanzapine 10 mg Tablet 10 mg PO BEDTIME Qty: 30 0RF clonidine HCl 0.2 mg Tablet 0.2 mg PO BEDTIME Qty: 30 0RF Protocol: Hold for SBP< HOLD for SBP < : 90 albuterol sulfate [Ventolin HFA] 90 mcg/actuation Hfa Aerosol Inhaler 2 puff inhalation Q4H PRN (Reason: shortness of breath or wheezing) Qty: 6.7 0RF tiotropium bromide [Spiriva with HandiHaler] 18 mcg Capsule, W/Inhalation Device 18 mcg inhalation RDAILY Qty: 20 0RF ferrous sulfate 324 mg (65 mg iron) Tablet,Delayed Release (Dr/Ec) 324 mg PO DAILY Qty: 30 0RF cetirizine 10 mg Tablet 10 mg PO DAILY PRN (Reason: Allergy Symptoms) nicotine (polacrilex) 2 mg Gum 2 mg BUCCAL Q2H PRN (Reason: Nicotine Cravings) melatonin 3 mg Tablet 3 mg PO BEDTIME PRN (Reason: Insomnia) valacyclovir 500 mg Tablet 500 mg PO DAILY pantoprazole 40 mg Tablet,Delayed Release (Dr/Ec) 40 mg PO DAILY@0630 doxycycline hyclate 100 mg tablet 100 mg PO BID Qty: 14 0RF prednisone 10 mg tablet See Rx Instructions .Route .COMPLEX Qty: 45 0RF Rx Instructions: 10 mg orally; 5 tabs p.o. daily x3 days; 4 tabs p.o. daily x3 days; 3 tabs daily x3 days; 2 tabs daily x3 days; 1 tab daily x3 days lithium carbonate 450 mg tablet extended release 450 mg PO TID cyanocobalamin (vitamin B-12) [Vitamin B-12] 1,000 mcg tablet 1,000 mcg PO DAILY ipratropium-albuterol 0.5 mg-3 mg(2.5 mg base)/3 mL solution for nebulization 3 ml inhalation RQ6H PRN (Reason: Shortness Of Breath Or Wheezing) gabapentin 400 mg Capsule 400 mg PO TID
--- NOTE | 2023-12-28 14:05 | PC.NURSE ---
pt is alert and oriented, skin pwd, respirations even and unlabored, pt has audible wheezing and junky cough, pt reports taking 10 tabs of 400mg gabapentin around 1300 in and suicidal attempt-pt reports having some life stresses pt changed over into hospital attire and belongings secures in locker 10, vs stable and ns on the monitor sitter in place
[2023-12-28 14:07] LABS: MANUAL DIFF FLAG NO
[2023-12-28 14:09] LABS: Basophils Absolute Auto 0.1 X10*3/uL (0.0-0.2); Basophils Percent Auto 0.4 % (0-2); Eosinophils Percent Auto 0.2 % (0-4); Hematocrit 50.6 % (37.0-47.0); Hemoglobin 16.3 g/dl (12.0-16.0); Imm Gran Abs Auto 0.13 X10*3/uL (0.00-0.03); Imm Gran Pct Auto 1.2 % (0.0-0.4); Lymphocytes Absolute Auto 1.4 X10*3/uL (1.2-4.9); Lymphocytes Percent Auto 12.3 % (20-40); Mean Corpuscular HGB Conc 32.2 g/dl (31.0-35.0); Mean Corpuscular Hemoglobin 30.2 pg (27.0-33.0); Mean Corpuscular Volume 93.9 fL (80.0-98.0); Mean Platelet Volume 9.3 fL (9.4-12.3); Monocytes Absolute Auto 0.2 X10*3/uL (0.1-1.2); Monocytes Percent Auto 1.9 % (2-11); Neutrophils Absolute Auto 9.5 x10*3/uL (2.0-8.3); Platelet Count 370 X10*3/uL (160-400); Red Blood Count 5.39 X10*6/uL (4.20-5.50); White Blood Count 11.3 X10*3/uL (4.8-10.8)
[2023-12-28] MEDS: Albuterol Sulfate 2.5 MG, Albuterol/Iprat 2.5/0.5MG 3 ML 3 ML INHALE (14:13)
[2023-12-28 14:25] LABS: Acetaminophen LAB < 3 mcg/mL (<30); Salicylate < 5.0 mg/dL (15-30)
[2023-12-28 14:42] LABS: Appearance Urine Clear; Color Urine Yellow; Glucose Urine UA Negative (Negative); Leukocyte Esterase Urine Negative (Negative); Nitrite Urine Negative (Negative); PH 7.5 (5.0-9.0); Urine Blood Negative (Negative); Urine Ketones Negative (Negative); Urine Protein Negative (Neg-Trace)
--- NOTE | 2023-12-28 14:45 | PC.NURSE ---
called poison control but dr hunt also called prior to this rn,
[2023-12-28 14:48] LABS: Amphetamine Screen Urine Not Detected (Not Detect); Barbiturates, Urine Not Detected (Not Detect); Benzodiazepines Screen Urine Not Detected (Not Detect); Cannabinoid Screen Urine Not Detected (Not Detect); Cocaine Screen Urine POSITIVE (Not Detect); Fentanyl, urine Not Detected (Not Detect); Opiate Screen Urine Not Detected (Not Detect); Phencyclidine Screen Urine Not Detected (Not Detect)
[2023-12-28 14:56] LABS: Alanine Aminotransferase 15 U/L (0-31); Albumin Level 4.3 g/dL (3.5-5.0); Alkaline Phosphatase 65 U/L (39-117); Anion Gap 8 (12-20); Aspartate Amino Transferase 9 U/L (5-31); Bilirubin Direct < 0.2 mg/dL (0.0-0.5); Bilirubin Total 0.2 mg/dL (0.0-1.0); Blood Urea Nitrogen 9 mg/dL (9-16); Calcium 10.6 mg/dL (8.4-10.2); Carbon Dioxide 33 mmol/L (22-29); Chloride 102 mmol/L (96-108); Creatinine Clr Calc Pharmacy 113.7; Estimated Glomerular Filt Rate > 60; Ethanol < 10 mg/dL; Glucose Random 121 mg/dL (60-115); Magnesium 2.1 mg/dL (1.6-2.6); Potassium 4.1 mmol/L (3.3-5.1); Sodium 139 mmol/L (135-145); Total Protein 7.1 g/dL (6.5-8.0)
--- NOTE | 2023-12-28 15:17 | PC.NURSE ---
pt becoming drowsy, needs assistance in staying awake, pt put on capnography and needs oxygen supplement, currenlty on nasal cannula at 2L and sating 87%
[2023-12-28 15:32] LABS: Lithium 1.14 mmol/L (0.60-1.20)
--- NOTE | 2023-12-28 16:19 | PC.NURSE ---
pt is starting to feel extremely fidgety, reports seeing things like animals/having blurred vision/ attempting to jump out of bed, aware of these findings
[2023-12-28] MEDS: Haloperidol Lactate 5 MG/ML VIAL IVPUSH (16:26)
--- NOTE | 2023-12-28 17:21 | MHC.CARE ---
Call from Monisha Castellanos from [facility] to provide information, patient was evaluated by [facility] yesterday and determined appropriate for [facility] level of care. There were no beds available, patient engaged in safety planning and agreed to admission today, however, they were unable to reach patient this morning to coordinate going to respite. Per co-response and police, patient called 911 with the report of suicidal ideation and being under the influence of drugs, when they arrived she took the medication in front of them. Per [facility], they recommended a [facility] distribute her home medications however patient declined. If not admitted to inpatient, [facility] will still consider her for respite and if patient is discharged, update [facility] Crisis because they will follow up with her in the community.
--- NOTE | 2023-12-28 17:47 | PC.NURSE ---
spoke with sudhir from poison control and recommends to perform ekg [id number]
--- NOTE | 2023-12-28 18:03 | ECG_ITS ---
Test Reason : REPEAT Blood Pressure : / mmHG Vent. Rate : 076 BPM Atrial Rate : 076 BPM P-R Int : 142 ms QRS Dur : 084 ms QT Int : 364 ms P-R-T Axes : -01 011 021 degrees QTc Int : 409 ms Normal sinus rhythm Nonspecific T wave abnormality Borderline ECG When compared with ECG of 28-DEC-2023 14:35, No significant change was found Referred By: Oswaldo Hollis Electronically Signed By:ALEJANDRO MCCLELLAN
--- NOTE | 2023-12-28 20:10 | PC.NURSE ---
Assumed care of pt at 1900. PT arousable to sternal rub. VSS- bp 108/72, hr 75, o2 sat 92% on 3l NC. Sitter at bedside. Plan is for repeat EKG q4hrs- next due at 10pm. Plan of care ongoing.
--- NOTE | 2023-12-28 20:52 | PC.NURSE ---
This Rn spoke with Maude at [facility] control. She noted that PT needs to stay overnight for observation on a clinical research monitor.
--- NOTE | 2023-12-28 21:20 | PC.NURSE ---
RT in room putting pt on CPAP- vitals stable.
--- NOTE | 2023-12-28 22:41 | PC.NURSE ---
Repeat EKG completed. Report given to provider for review.
[2023-12-29] VITALS (12 sets, daily range): BP systolic 107–142; BP diastolic 50–86; PULSE 64–94; RESP 16–22; TEMP 36.3–37; O2SAT 88–96
--- NOTE | 2023-12-29 | ECG_ITS ---
Test Reason : chest pain Blood Pressure : / mmHG Vent. Rate : 097 BPM Atrial Rate : 097 BPM P-R Int : 136 ms QRS Dur : 082 ms QT Int : 338 ms P-R-T Axes : -21 043 035 degrees QTc Int : 429 ms Normal sinus rhythm Nonspecific T wave abnormality Abnormal ECG When compared with ECG of 29-DEC-2023 13:06, No significant change was found Referred By: Lamont Damon Electronically Signed By:ALEJANDRO MCCLELLAN
--- NOTE | 2023-12-29 | ECG_ITS ---
Test Reason : check QT Blood Pressure : / mmHG Vent. Rate : 080 BPM Atrial Rate : 080 BPM P-R Int : 136 ms QRS Dur : 090 ms QT Int : 372 ms P-R-T Axes : -13 031 034 degrees QTc Int : 429 ms Normal sinus rhythm Nonspecific T wave abnormality Borderline ECG When compared with ECG of 28-DEC-2023 22:33, Nonspecific T wave abnormality now evident in Lateral leads Referred By: Gabbie Trinh Electronically Signed By:ALEJANDRO MCCLELLAN
[2023-12-29] MEDS: Albuterol Sulfate 2.5 MG, Albuterol/Iprat 2.5/0.5MG 3 ML 3 ML INHALE ×2 (07:45→10:19)
--- NOTE | 2023-12-29 08:35 | PHA.MEDREC ---
Pharmacy Consult ? Medication Reconciliation Pharmacy has completed the medication reconciliation. Spoke with patient. With some help going down our list, patient was able to confirm their medications.
[2023-12-29] MEDS: Albuterol Sulfate 5 MG, Albuterol/Iprat 2.5/0.5MG 3 ML 3 ML INHALE (08:42)
[2023-12-29] MEDS: Omeprazole 20 MG CAPSULE.DR PO (09:52)
[2023-12-29] MEDS: Cyanocobalamin (Vitamin B-12) 1,000 MCG TABLET 1000 MCG PO (09:52)
[2023-12-29] MEDS: Nicotine 21 MG PATCH.TD24 TRANSDERMA (09:52)
[2023-12-29] MEDS: Doxycycline Monohydrate 100 MG CAPSULE PO ×2 (09:52→21:55)
[2023-12-29] MEDS: Ferrous Sulfate 324 MG TABLET.DR PO (09:53)
[2023-12-29] MEDS: predniSONE 10 MG TABLET 30 MG PO (10:04)
[2023-12-29] MEDS: guaiFENesin 100 MG/5 ML LIQUID PO (10:05)
[2023-12-29] MEDS: Benzonatate 100 MG CAPSULE 200 MG PO (10:05)
[2023-12-29] MEDS: valACYclovir HCL 500 MG TABLET PO (11:18)
[2023-12-29 11:50] LABS: COVID-19 Test Negative (Negative); IDNOW Serial# 08D9AD1C
[2023-12-29] MEDS: Albuterol/Iprat 2.5/0.5MG 3 ML AMPUL.NEB INHALE (12:32)
[2023-12-29] MEDS: Lithium Carbonate ER 450 MG TABLET.ER PO ×2 (17:14→21:55)
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
--- NOTE | 2023-12-29 19:12 | PC.NURSE ---
C/o nausea after eating hamburger and chips for supper at 1855. C/o mid chest pain, which circled under left breast and returned to mid chest. at 1905. VS 97.8-88-24 O2 sat 94% on 3l O2 continuous via n/c. Dr Damon notified; stat EKG/troponin, hospitalist consult ordered. Coke Loader notified, charge nurse notified. Pt reported tingling/numbness left hand radiating to left shoulder. at 1920. Pt remains 1:1 observation due to O2 use.
[2023-12-29] MEDS: Albuterol Sulfate 90 MCG 8 GM INHALER 2 PUFF INHALE (20:32)
[2023-12-29] MEDS: cloNIDine HCL 0.2 MG TABLET PO (20:33)
[2023-12-29 20:40] LABS: Troponin-I High Sensitivity < 2.7 ng/L (<3.5-17.0)
--- NOTE | 2023-12-29 21:11 | PM.EVENT ---
Event Note Date of Service: 12/29/23 Event Note: Patient seen and evaluated for chest pain earlier this evening. Patient states that she was eating dinner when she she began feeling queasy, coughing, and had a sharp and shooting left-sided chest pain with associated left hand tingling. Lasted 15-20 minutes. Was worse with deep breathing. Denies any alleviating factors. EKG was was obtained which showed normal sinus rhythm with nonspecific T-wave abnormality and no significant ST elevations or depressions, similar to previous EKG from earlier in the day. Upon examination patient with normal rate and rhythm, no murmurs, rubs or gallops. Anterior central chest wall slightly tender to palpation. Lungs with slight expiratory wheezes bilaterally. Moving all extremities spontaneously. No focal deficits noted. Chest pain most likely multifactorial: Components of COPD, GERD, and anxiety. Workup and exam negative for acute ischemic event. No further workup indicated at this time. Patient should continue home COPD inhalers. Will sign off at this time. If patient's symptoms return or worsen, please re-consult. Time Spent With Patient Time: Total time managing care of this patient today ____ minutes.
[2023-12-29] MEDS: Melatonin 3 MG TABLET PO (21:55)
[2023-12-29] MEDS: rOPINIRole HCL 1 MG TABLET PO (21:55)
[2023-12-29] MEDS: Gabapentin 400 MG CAPSULE PO (21:55)
[2023-12-29] MEDS: OLANZapine 10 MG TABLET PO (21:55)
--- NOTE | 2023-12-30 05:14 | PC.NURSE ---
Pt received EKG and had labs drawn. Pt EKG and labs were WNL. Pt received clonidine 0.2mg with good effect. Pt was visible in milieu doing puzzle until hs. Pt breathing less labored than earlier in shift, still using 3L 02.Will continue to monitor throughout the night.
[2023-12-30 07:20] VITALS: BP 125/61; PULSE 88; RESP 18; TEMP 35.9; O2SAT 93
[2023-12-30] MEDS: Cyanocobalamin (Vitamin B-12) 1,000 MCG TABLET 1000 MCG PO (08:33)
[2023-12-30] MEDS: Omeprazole 20 MG CAPSULE.DR PO (08:33)
[2023-12-30] MEDS: Gabapentin 400 MG CAPSULE PO ×3 (08:33→21:29)
[2023-12-30] MEDS: Ferrous Sulfate 324 MG TABLET.DR PO (08:34)
[2023-12-30] MEDS: Doxycycline Monohydrate 100 MG CAPSULE PO ×2 (08:34→21:30)
[2023-12-30] MEDS: valACYclovir HCL 500 MG TABLET PO (08:34)
[2023-12-30] MEDS: Lithium Carbonate ER 450 MG TABLET.ER PO ×3 (08:34→21:29)
[2023-12-30] MEDS: Nicotine 21 MG PATCH.TD24 TRANSDERMA (08:35)
[2023-12-30] MEDS: Tiotropium Bromide 2.5 mcg 1 PUFF/2.5 MCG MIST.INHAL 2 PUFF INHALE (08:38)
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
[2023-12-30 10:10] VITALS: BP 141/96; PULSE 94; RESP 22; O2SAT 94
[2023-12-30] MEDS: Albuterol Sulfate 90 MCG 8 GM INHALER 2 PUFF INHALE (10:10)
[2023-12-30 11:54] LABS: Alanine Aminotransferase 16 U/L (0-31); Albumin Level 4.1 g/dL (3.5-5.0); Alkaline Phosphatase 60 U/L (39-117); Anion Gap 13 (12-20); Aspartate Amino Transferase 26 U/L (5-31); Bilirubin Total 0.1 mg/dL (0.0-1.0); Blood Urea Nitrogen 11 mg/dL (9-16); Calcium 9.9 mg/dL (8.4-10.2); Carbon Dioxide 31 mmol/L (22-29); Chloride 104 mmol/L (96-108); Cholesterol 166 mg/dL (<200); Creatinine Clr Calc Pharmacy 118.7; Estimated Glomerular Filt Rate > 60; Glucose Fasting 97 mg/dL (60-99); HDL Cholesterol 54 mg/dL (>40); LDL Cholesterol Calculated 56 mg/dL (<100); Potassium 4.5 mmol/L (3.3-5.1); Sodium 143 mmol/L (135-145); Total Protein 6.8 g/dL (6.5-8.0); Triglycerides 280 mg/dL (<150)
[2023-12-30] MEDS: Acetaminophen 325 MG TABLET 650 MG PO (14:44)
[2023-12-30 16:14] VITALS: PULSE 78; RESP 18; O2SAT 96
[2023-12-30] MEDS: guaiFENesin 100 MG/5 ML LIQUID PO (19:06)
[2023-12-30 19:50] VITALS: BP 124/70; PULSE 84; RESP 18; TEMP 36.6; O2SAT 92
[2023-12-30 21:25] VITALS: BP 124/60; PULSE 90
[2023-12-30] MEDS: OLANZapine 10 MG TABLET PO (21:30)
[2023-12-30] MEDS: chlorproMAZINE HCl 25 MG TABLET 50 MG PO (21:30)
[2023-12-30] MEDS: Melatonin 3 MG TABLET PO (21:30)
[2023-12-30] MEDS: cloNIDine HCL 0.2 MG TABLET PO (21:30)
[2023-12-30] MEDS: rOPINIRole HCL 1 MG TABLET PO (21:30)
[2023-12-31] MEDS: Tiotropium Bromide 2.5 mcg 1 PUFF/2.5 MCG MIST.INHAL 2 PUFF INHALE (07:42)
[2023-12-31] MEDS: Omeprazole 20 MG CAPSULE.DR PO (07:42)
[2023-12-31 08:05] VITALS: BP 145/79; PULSE 96; RESP 16; TEMP 36.1; O2SAT 95
[2023-12-31] MEDS: Gabapentin 400 MG CAPSULE PO ×3 (08:35→21:42)
[2023-12-31] MEDS: valACYclovir HCL 500 MG TABLET PO (08:36)
[2023-12-31] MEDS: Cyanocobalamin (Vitamin B-12) 1,000 MCG TABLET 1000 MCG PO (08:36)
[2023-12-31] MEDS: Ferrous Sulfate 324 MG TABLET.DR PO (08:36)
[2023-12-31] MEDS: Lithium Carbonate ER 450 MG TABLET.ER PO ×3 (08:36→21:43)
[2023-12-31] MEDS: Nicotine 21 MG PATCH.TD24 TRANSDERMA (08:37)
[2023-12-31] MEDS: guaiFENesin 100 MG/5 ML LIQUID PO ×3 (11:59→21:47)
[2023-12-31] MEDS: Albuterol Sulfate 90 MCG 8 GM INHALER 2 PUFF INHALE ×2 (11:59→21:40)
[2023-12-31] MEDS: Albuterol/Iprat 2.5/0.5MG 3 ML AMPUL.NEB INHALE (14:58)
[2023-12-31 14:59] VITALS: PULSE 91; RESP 16; O2SAT 94
--- NOTE | 2023-12-31 16:25 | P.PNPSI_ITS ---
Subjective Subjective Date of Service: 12/31/23 Reason For Visit: SEC 12,SI,OD ATTEMPT [id number] GABPENTIN PER EMS Interim History: calm, cooperative. walker and O2 tank. planning to DC on her birthday this tuesday. no change in meds on admission. no requests or complaints. per staff, dep/anx 8. no AVH. +SI but safe here. somatically focused. Mental Status Exam Mental Status Exam Narrative: Pt is alert and oriented; behavior is cooperative and calm; dressed in casual attire; eye contact appropriate; Speech is normal rate, volume and prosody and not pressured; thought process is organized; Thought content is on tx. no SI/HI/AVH expressed. Diagnostics Vital Signs (24Hr): Vital Signs - 24 hr 12/30/23 19:50 12/30/23 21:25 12/31/23 08:05 Temperature 97.8 F 97.0 F Pulse Rate 84 90 96 Respiratory Rate 18 16 Blood Pressure 124/70 124/60 145/79 H Pulse Oximetry 92 95 Oxygen Delivery Method Nasal Cannula Room Air Oxygen Flow Rate 3 12/31/23 14:59 Temperature Pulse Rate 91 Respiratory Rate 16 Blood Pressure Pulse Oximetry Oxygen Delivery Method Oxygen Flow Rate BMI result Body Mass Index 42.0 Labs 12/28/23 14:04 12/30/23 11:02 Labs: Laboratory Results - last 48 hr 12/29/23 12/30/23 20:11 11:02 Sodium 143 Potassium 4.5 Chloride 104 Carbon Dioxide 31 H Anion Gap 13 BUN 11 Creatinine 0.70 Estim Creat Clear Calc 118.7 Estimated GFR > 60 Fasting Glucose 97 Calcium 9.9 D Total Bilirubin 0.1 AST 26 ALT 16 Alkaline Phosphatase 60 Troponin I High Sens < 2.7 Total Protein 6.8 Albumin 4.1 Triglycerides 280 H Cholesterol 166 LDL Cholesterol, Calc 56 HDL Cholesterol 54 Medications Medications Current Medications Acetaminophen (Acetaminophen 325 Mg Tablet) 650 mg PO Q6H PRN PRN Reason: Headache/Pain Mild Scale (1-3) Last Admin: 12/30/23 14:44 Dose: 650 mg Al Hydroxide/Mg Hydroxide (Magnesium Hydrox/Alum Hydrox 30 Ml Oral.Susp) 30 ml PO Q6H PRN PRN Reason: Heartburn/Nausea Albuterol Sulfate (Albuterol Sulfate 90 Mcg 8 Gm Inhaler) 2 puff INHALE Q4H PRN PRN Reason: shortness of breath or wheezing Last Admin: 12/31/23 11:59 Dose: 2 puff Albuterol/Ipratropium (Albuterol/Iprat 2.5/0.5mg 3 Ml Ampul.Neb) 3 ml INHALE RQ6H PRN PRN Reason: Shortness Of Breath Or Wheezing Last Admin: 12/31/23 14:58 Dose: 3 ml Chlorpromazine HCl (Chlorpromazine Hcl 25 Mg Tablet) 50 mg PO TID PRN PRN Reason: agitation Last Admin: 12/30/23 21:30 Dose: 50 mg Clonidine HCl (Clonidine Hcl 0.2 Mg Tablet) 0.2 mg PO BEDTIME [facility]; Protocol Last Admin: 12/30/23 21:30 Dose: 0.2 mg Clonidine HCl (Clonidine Hcl 0.1 Mg Tablet) 0.1 mg PO Q4H PRN; Protocol PRN Reason: anxiety/restlessness Cyanocobalamin (Cyanocobalamin (Vitamin B-12) 1,000 Mcg Tablet) 1,000 mcg PO DAILY [facility] Last Admin: 12/31/23 08:36 Dose: 1,000 mcg Ferrous Sulfate (Ferrous Sulfate 324 Mg Tablet.Dr) 324 mg PO DAILY [facility] Last Admin: 12/31/23 08:36 Dose: 324 mg Gabapentin (Gabapentin 400 Mg Capsule) 400 mg PO TID [facility] Last Admin: 12/31/23 16:09 Dose: 400 mg Guaifenesin (Guaifenesin 100 Mg/5 Ml Liquid) 5 ml PO Q6H PRN PRN Reason: Cough Last Admin: 12/31/23 11:59 Dose: 5 ml [place] Carbonate ([place] Carbonate Er 450 Mg Tablet.Er) 450 mg PO TID [facility] Last Admin: 12/31/23 16:09 Dose: 450 mg Loratadine (Loratadine 10 Mg Tablet) 10 mg PO DAILY PRN PRN Reason: Allergy Symptoms Magnesium Hydroxide (Milk Of Magnesia 30 Ml Oral.Susp) 30 ml PO DAILY PRN PRN Reason: Constipation Melatonin (Melatonin 3 Mg Tablet) 3 mg PO BEDTIME [facility] Last Admin: 12/30/23 21:30 Dose: 3 mg Nicotine (Nicotine 21 Mg Patch.Td24) 21 mg TRANSDERMA DAILY [facility] Last Admin: 12/31/23 08:37 Dose: 21 mg Nicotine Polacrilex (Nicotine Polacrilex 2 Mg Gum) 2 mg BUCCAL Q2H PRN PRN Reason: Nicotine Cravings Olanzapine (Olanzapine 10 Mg Tablet) 10 mg PO BEDTIME [facility] Last Admin: 12/30/23 21:30 Dose: 10 mg Omeprazole (Omeprazole 20 Mg Capsule.Dr) 20 mg PO DAILY@0630 [facility] Last Admin: 12/31/23 07:42 Dose: 20 mg Ropinirole HCl (Ropinirole Hcl 1 Mg Tablet) 1 mg PO BEDTIME [facility] Last Admin: 12/30/23 21:30 Dose: 1 mg Tiotropium [place] (Tiotropium [place] 2.5 Mcg 1 Puff/2.5 Mcg Mist.Inhal) 2 puff INHALE RDAILY [facility] Last Admin: 12/31/23 07:42 Dose: 2 puff Valacyclovir HCl (Valacyclovir Hcl 500 Mg Tablet) 500 mg PO DAILY [facility] Last Admin: 12/31/23 08:36 Dose: 500 mg Allergies Allergies Allergy/AdvReac Type Severity Reaction Status Date / Time aspirin Allergy Mild Anaphylaxis Verified 12/28/23 13:41 ampicillin Allergy Rash Verified 12/28/23 13:41 Penicillins Allergy Anaphylaxis Verified 12/28/23 13:41 latex AdvReac Rash Verified 12/28/23 13:41 Latex, Natural Rubber AdvReac Rash Verified 12/28/23 13:41 seafood AdvReac Anaphylaxis Verified 12/28/23 13:41 Sulfa (Sulfonamide AdvReac Hives Verified 12/28/23 13:41 Antibiotics) Assessment & Plan Assessment & Plan (1) Bipolar I disorder: Status: Chronic Code(s): F31.9 - Bipolar disorder, unspecified (2) Post traumatic stress disorder (PTSD): Status: Acute Code(s): F43.10 - Post-traumatic stress disorder, unspecified (3) Borderline personality disorder: Status: Acute Code(s): F60.3 - Borderline personality disorder (4) Cocaine use disorder: Status: Acute Code(s): F14.10 - Cocaine abuse, uncomplicated Plan Patient is a 53 year old female with hx of Bipolar d/o, PTSD, Borderline personality d/o and cocaine use d/o who presented to [facility] via EMS secondary to overdosing on Gabapentin d/t suicidal ideation. Plan: CV 1:1 d/t O2 continue home medications discharge planning Possible lock box for her medications with VNA? 3/2: stable. planning to discharge on her birthday, this coming . continue current mgmt. Reason for continued inpatient stay Substantial Risk for: inability to function and rapid decompensation Time Spent With Patient Time: Total time managing care of this patient today ____ minutes.
[2023-12-31 21:30] VITALS: BP 131/77; PULSE 97; RESP 18; TEMP 36.5; O2SAT 90
[2023-12-31 21:40] VITALS: O2SAT 92
[2023-12-31] MEDS: OLANZapine 10 MG TABLET PO (21:42)
[2023-12-31] MEDS: cloNIDine HCL 0.2 MG TABLET PO (21:42)
[2023-12-31] MEDS: chlorproMAZINE HCl 25 MG TABLET 50 MG PO (21:42)
[2023-12-31] MEDS: rOPINIRole HCL 1 MG TABLET PO (21:43)
[2023-12-31] MEDS: Melatonin 3 MG TABLET PO (21:43)
[2023-12-31 21:55] VITALS: O2SAT 93
[2024-01-01] MEDS: Tiotropium Bromide 2.5 mcg 1 PUFF/2.5 MCG MIST.INHAL 2 PUFF INHALE (08:23)
[2024-01-01] MEDS: Ferrous Sulfate 324 MG TABLET.DR PO (08:24)
[2024-01-01] MEDS: Omeprazole 20 MG CAPSULE.DR PO (08:24)
[2024-01-01] MEDS: valACYclovir HCL 500 MG TABLET PO (08:24)
[2024-01-01 08:25] VITALS: BP 111/69; PULSE 99; RESP 24; TEMP 36; O2SAT 93
[2024-01-01] MEDS: Lithium Carbonate ER 450 MG TABLET.ER PO ×3 (08:25→20:45)
[2024-01-01] MEDS: Cyanocobalamin (Vitamin B-12) 1,000 MCG TABLET 1000 MCG PO (08:25)
[2024-01-01] MEDS: Gabapentin 400 MG CAPSULE PO ×3 (08:25→20:44)
[2024-01-01] MEDS: guaiFENesin 100 MG/5 ML LIQUID PO ×3 (08:33→20:44)
[2024-01-01] MEDS: Albuterol Sulfate 90 MCG 8 GM INHALER 2 PUFF INHALE (12:37)
[2024-01-01] MEDS: Nicotine 21 MG PATCH.TD24 TRANSDERMA (14:15)
--- NOTE | 2024-01-01 16:32 | HO.PSYCHPN ---
Subjective Subjective Date of Service: 01/01/24 Reason For Visit: SEC 12,SI,OD ATTEMPT [id number] GABPENTIN PER EMS Interim History: calm, cooperative. feeling good, likes cough syrup, looking forward to discharge on her birthday. per staff, refused CPAP overnight, states she slept well on oxygen otherwise. Mental Status Exam Mental Status Exam Narrative: Pt is alert and oriented; behavior is cooperative and calm; dressed in casual attire; eye contact appropriate; Speech is normal rate, volume and prosody and not pressured; thought process is organized; Thought content is on tx. mood good. no SI/HI/AVH expressed. Diagnostics Vital Signs (24Hr): Vital Signs - 24 hr 12/31/23 21:30 12/31/23 21:40 12/31/23 21:55 Temperature 97.7 F Pulse Rate 97 Respiratory Rate 18 Blood Pressure 131/77 Pulse Oximetry 90 L 92 93 Oxygen Delivery Method Nasal Cannula Nasal Cannula Nasal Cannula Oxygen Flow Rate 3 3 3 01/01/24 08:25 Temperature 96.8 F Pulse Rate 99 Respiratory Rate 24 H Blood Pressure 111/69 Pulse Oximetry 93 Oxygen Delivery Method Nasal Cannula Oxygen Flow Rate 3 BMI result Body Mass Index 42.0 Labs 12/28/23 14:04 12/30/23 11:02 Medications Medications Current Medications Acetaminophen (Acetaminophen 325 Mg Tablet) 650 mg PO Q6H PRN PRN Reason: Headache/Pain Mild Scale (1-3) Last Admin: 12/30/23 14:44 Dose: 650 mg Al Hydroxide/Mg Hydroxide (Magnesium Hydrox/Alum Hydrox 30 Ml Oral.Susp) 30 ml PO Q6H PRN PRN Reason: Heartburn/Nausea Albuterol Sulfate (Albuterol Sulfate 90 Mcg 8 Gm Inhaler) 2 puff INHALE Q4H PRN PRN Reason: shortness of breath or wheezing Last Admin: 01/01/24 12:37 Dose: 2 puff Albuterol/Ipratropium (Albuterol/Iprat 2.5/0.5mg 3 Ml Ampul.Neb) 3 ml INHALE RQ6H PRN PRN Reason: Shortness Of Breath Or Wheezing Last Admin: 12/31/23 14:58 Dose: 3 ml Chlorpromazine HCl (Chlorpromazine Hcl 25 Mg Tablet) 50 mg PO TID PRN PRN Reason: agitation Last Admin: 12/31/23 21:42 Dose: 50 mg Clonidine HCl (Clonidine Hcl 0.2 Mg Tablet) 0.2 mg PO BEDTIME [facility]; Protocol Last Admin: 12/31/23 21:42 Dose: 0.2 mg Clonidine HCl (Clonidine Hcl 0.1 Mg Tablet) 0.1 mg PO Q4H PRN; Protocol PRN Reason: anxiety/restlessness Cyanocobalamin (Cyanocobalamin (Vitamin B-12) 1,000 Mcg Tablet) 1,000 mcg PO DAILY [facility] Last Admin: 01/01/24 08:25 Dose: 1,000 mcg Ferrous Sulfate (Ferrous Sulfate 324 Mg Tablet.) 324 mg PO DAILY [facility] Last Admin: 01/01/24 08:24 Dose: 324 mg Gabapentin (Gabapentin 400 Mg Capsule) 400 mg PO TID [facility] Last Admin: 01/01/24 08:25 Dose: 400 mg Guaifenesin (Guaifenesin 100 Mg/5 Ml Liquid) 5 ml PO Q4H PRN PRN Reason: Cough Last Admin: 01/01/24 12:36 Dose: 5 ml [place] Carbonate ([place] Carbonate Er 450 Mg Tablet.Er) 450 mg PO TID [facility] Last Admin: 01/01/24 08:25 Dose: 450 mg Loratadine (Loratadine 10 Mg Tablet) 10 mg PO DAILY PRN PRN Reason: Allergy Symptoms Magnesium Hydroxide (Milk Of Magnesia 30 Ml Oral.Susp) 30 ml PO DAILY PRN PRN Reason: Constipation Melatonin (Melatonin 3 Mg Tablet) 3 mg PO BEDTIME [facility] Last Admin: 12/31/23 21:43 Dose: 3 mg Nicotine (Nicotine 21 Mg Patch.Td24) 21 mg TRANSDERMA DAILY [facility] Last Admin: 01/01/24 14:15 Dose: 21 mg Nicotine Polacrilex (Nicotine Polacrilex 2 Mg Gum) 2 mg BUCCAL Q2H PRN PRN Reason: Nicotine Cravings Olanzapine (Olanzapine 10 Mg Tablet) 10 mg PO BEDTIME [facility] Last Admin: 12/31/23 21:42 Dose: 10 mg Omeprazole (Omeprazole 20 Mg Capsule.) 20 mg PO DAILY@0630 [facility] Last Admin: 01/01/24 08:24 Dose: 20 mg Ropinirole HCl (Ropinirole Hcl 1 Mg Tablet) 1 mg PO BEDTIME [facility] Last Admin: 12/31/23 21:43 Dose: 1 mg Tiotropium [place] (Tiotropium [place] 2.5 Mcg 1 Puff/2.5 Mcg Mist.Inhal) 2 puff INHALE RDAILY [facility] Last Admin: 01/01/24 08:23 Dose: 2 puff Valacyclovir HCl (Valacyclovir Hcl 500 Mg Tablet) 500 mg PO DAILY [facility] Last Admin: 01/01/24 08:24 Dose: 500 mg Allergies Allergies Allergy/AdvReac Type Severity Reaction Status Date / Time aspirin Allergy Mild Anaphylaxis Verified 12/28/23 13:41 ampicillin Allergy Rash Verified 12/28/23 13:41 Penicillins Allergy Anaphylaxis Verified 12/28/23 13:41 latex AdvReac Rash Verified 12/28/23 13:41 Latex, Natural Rubber AdvReac Rash Verified 12/28/23 13:41 seafood AdvReac Anaphylaxis Verified 12/28/23 13:41 Sulfa (Sulfonamide AdvReac Hives Verified 12/28/23 13:41 Antibiotics) Assessment & Plan Assessment & Plan (1) Bipolar I disorder: Status: Chronic Code(s): F31.9 - Bipolar disorder, unspecified (2) Post traumatic stress disorder (PTSD): Status: Acute Code(s): F43.10 - Post-traumatic stress disorder, unspecified (3) Borderline personality disorder: Status: Acute Code(s): F60.3 - Borderline personality disorder (4) Cocaine use disorder: Status: Acute Code(s): F14.10 - Cocaine abuse, uncomplicated Plan Patient is a 53 year old female with hx of Bipolar d/o, PTSD, Borderline personality d/o and cocaine use d/o who presented to [facility] via EMS secondary to overdosing on Gabapentin d/t suicidal ideation. Plan: CV 1:1 d/t O2 continue home medications discharge planning Possible lock box for her medications with VNA? 3: stable. planning to discharge on her birthday, this coming . continue current mgmt. 12/31: stable. mood good. planning for birthday discharge. continue current mgmt. Reason for continued inpatient stay Substantial Risk for: inability to function and rapid decompensation Time Spent With Patient Time: Total time managing care of this patient today ____ minutes.
[2024-01-01] MEDS: Albuterol/Iprat 2.5/0.5MG 3 ML AMPUL.NEB INHALE (18:31)
[2024-01-01 18:33] VITALS: PULSE 99; RESP 21; O2SAT 94
[2024-01-01] MEDS: chlorproMAZINE HCl 25 MG TABLET 50 MG PO (20:45)
[2024-01-01] MEDS: Melatonin 3 MG TABLET PO (20:45)
[2024-01-01] MEDS: rOPINIRole HCL 1 MG TABLET PO (20:45)
[2024-01-01] MEDS: cloNIDine HCL 0.2 MG TABLET PO (20:45)
[2024-01-01 20:46] VITALS: BP 139/79; PULSE 94; RESP 18; TEMP 36.3; O2SAT 92
[2024-01-01] MEDS: OLANZapine 10 MG TABLET PO (20:46)
[2024-01-01] MEDS: valACYclovir HCL 1,000 MG TABLET 1000 MG PO (22:17)
[2024-01-02 08:00] VITALS: BP 109/57; PULSE 85; RESP 14; TEMP 36.5; O2SAT 93
[2024-01-02] MEDS: Albuterol Sulfate 90 MCG 8 GM INHALER 2 PUFF INHALE ×2 (08:47→15:57)
[2024-01-02] MEDS: Nicotine 21 MG PATCH.TD24 TRANSDERMA (08:48)
[2024-01-02] MEDS: Tiotropium Bromide 2.5 mcg 1 PUFF/2.5 MCG MIST.INHAL 2 PUFF INHALE (08:48)
[2024-01-02] MEDS: valACYclovir HCL 1,000 MG TABLET 1000 MG PO ×2 (08:49→20:28)
[2024-01-02] MEDS: Gabapentin 400 MG CAPSULE PO ×3 (08:49→20:29)
[2024-01-02] MEDS: Cyanocobalamin (Vitamin B-12) 1,000 MCG TABLET 1000 MCG PO (08:49)
[2024-01-02] MEDS: Lithium Carbonate ER 450 MG TABLET.ER PO ×3 (08:49→20:28)
[2024-01-02] MEDS: Ferrous Sulfate 324 MG TABLET.DR PO (08:49)
[2024-01-02] MEDS: Omeprazole 20 MG CAPSULE.DR PO (08:49)
--- NOTE | 2024-01-02 08:59 | P.PNPSI_ITS ---
Subjective Subjective Date of Service: 01/02/24 Reason For Visit: SEC 12,SI,OD ATTEMPT [id number] GABPENTIN PER EMS Subjective Notes: Conditional Voluntary Interim History: Reviewed with Dr. Cardona. Patient reports feeling good ; pt stated, I feel better with my meds. I wasn't taking them daily . Pt reports she plans on being medication compliant and following up with her outpatient providers. Pt reports she would like to be discharged home tomorrow. denies SI/HI/VH/AH. Medication Compliance: Yes Side effects from medications: No Attending Groups: No Review of Systems Constitutional: Reports as per HPI Eyes: Reports as per HPI Reports as per HPI Cardiovascular: Reports as per HPI Respiratory: Reports as per HPI Gastrointestinal: Reports as per HPI Genitourinary: Reports as per HPI Musculoskeletal: Reports as per HPI Skin/Breast: Reports as per HPI Reports as per HPI Psychiatric: Reports as per HPI Endocrine: Reports as per HPI Hematologic/Lymphatic: Reports as per HPI Allergic/Immunologic: Reports as per HPI Mental Status Exam Mental Status Exam Narrative: Pt is alert and oriented; behavior is cooperative, friendly and calm; dressed in casual attire; mood is described as good ; eye contact appropriate; Speech is normal rate, volume and prosody and not pressured; thought process is organized; Thought content is on discharge; denies SI/HI/VH/AH. Diagnostics Vital Signs (24Hr): Vital Signs - 24 hr 01/01/24 18:33 01/01/24 20:46 01/02/24 08:00 Temperature 97.3 F 97.7 F Pulse Rate 99 94 85 Respiratory Rate 21 H 18 14 Blood Pressure 139/79 109/57 L Pulse Oximetry 92 93 Oxygen Delivery Method Nasal Cannula Room Air BMI result Body Mass Index 42.0 Labs 12/28/23 14:04 12/30/23 11:02 Medications Medications Current Medications Acetaminophen (Acetaminophen 325 Mg Tablet) 650 mg PO Q6H PRN PRN Reason: Headache/Pain Mild Scale (1-3) Last Admin: 12/30/23 14:44 Dose: 650 mg Al Hydroxide/Mg Hydroxide (Magnesium Hydrox/Alum Hydrox 30 Ml Oral.Susp) 30 ml PO Q6H PRN PRN Reason: Heartburn/Nausea Albuterol Sulfate (Albuterol Sulfate 90 Mcg 8 Gm Inhaler) 2 puff INHALE Q4H PRN PRN Reason: shortness of breath or wheezing Last Admin: 01/02/24 08:47 Dose: 2 puff Albuterol/Ipratropium (Albuterol/Iprat 2.5/0.5mg 3 Ml Ampul.Neb) 3 ml INHALE RQ6H PRN PRN Reason: Shortness Of Breath Or Wheezing Last Admin: 01/01/24 18:31 Dose: 3 ml Chlorpromazine HCl (Chlorpromazine Hcl 25 Mg Tablet) 50 mg PO TID PRN PRN Reason: agitation Last Admin: 01/01/24 20:45 Dose: 50 mg Clonidine HCl (Clonidine Hcl 0.2 Mg Tablet) 0.2 mg PO BEDTIME [facility]; Protocol Last Admin: 01/01/24 20:45 Dose: 0.2 mg Clonidine HCl (Clonidine Hcl 0.1 Mg Tablet) 0.1 mg PO Q4H PRN; Protocol PRN Reason: anxiety/restlessness Cyanocobalamin (Cyanocobalamin (Vitamin B-12) 1,000 Mcg Tablet) 1,000 mcg PO DAILY [facility] Last Admin: 01/02/24 08:49 Dose: 1,000 mcg Ferrous Sulfate (Ferrous Sulfate 324 Mg Tablet.Dr) 324 mg PO DAILY [facility] Last Admin: 01/02/24 08:49 Dose: 324 mg Gabapentin (Gabapentin 400 Mg Capsule) 400 mg PO TID [facility] Last Admin: 01/02/24 08:49 Dose: 400 mg Guaifenesin (Guaifenesin 100 Mg/5 Ml Liquid) 5 ml PO Q4H PRN PRN Reason: Cough Last Admin: 01/01/24 20:44 Dose: 5 ml [place] Carbonate ([place] Carbonate Er 450 Mg Tablet.Er) 450 mg PO TID [facility] Last Admin: 01/02/24 08:49 Dose: 450 mg Loratadine (Loratadine 10 Mg Tablet) 10 mg PO DAILY PRN PRN Reason: Allergy Symptoms Magnesium Hydroxide (Milk Of Magnesia 30 Ml Oral.Susp) 30 ml PO DAILY PRN PRN Reason: Constipation Melatonin (Melatonin 3 Mg Tablet) 3 mg PO BEDTIME [facility] Last Admin: 01/01/24 20:45 Dose: 3 mg Nicotine (Nicotine 21 Mg Patch.Td24) 21 mg TRANSDERMA DAILY [facility] Last Admin: 01/02/24 08:48 Dose: 21 mg Nicotine Polacrilex (Nicotine Polacrilex 2 Mg Gum) 2 mg BUCCAL Q2H PRN PRN Reason: Nicotine Cravings Olanzapine (Olanzapine 10 Mg Tablet) 10 mg PO BEDTIME [facility] Last Admin: 01/01/24 20:46 Dose: 10 mg Omeprazole (Omeprazole 20 Mg Capsule.Dr) 20 mg PO DAILY@0630 [facility] Last Admin: 01/02/24 08:49 Dose: 20 mg Ropinirole HCl (Ropinirole Hcl 1 Mg Tablet) 1 mg PO BEDTIME [facility] Last Admin: 01/01/24 20:45 Dose: 1 mg Tiotropium [place] (Tiotropium [place] 2.5 Mcg 1 Puff/2.5 Mcg Mist.Inhal) 2 puff INHALE RDAILY [facility] Last Admin: 01/02/24 08:48 Dose: 2 puff Valacyclovir HCl (Valacyclovir Hcl 1,000 Mg Tablet) 1,000 mg PO BID [facility] Last Admin: 01/02/24 08:49 Dose: 1,000 mg Allergies Allergies Allergy/AdvReac Type Severity Reaction Status Date / Time aspirin Allergy Mild Anaphylaxis Verified 12/28/23 13:41 ampicillin Allergy Rash Verified 12/28/23 13:41 Penicillins Allergy Anaphylaxis Verified 12/28/23 13:41 latex AdvReac Rash Verified 12/28/23 13:41 Latex, Natural Rubber AdvReac Rash Verified 12/28/23 13:41 seafood AdvReac Anaphylaxis Verified 12/28/23 13:41 Sulfa (Sulfonamide AdvReac Hives Verified 12/28/23 13:41 Antibiotics) Assessment & Plan Assessment & Plan (1) Bipolar I disorder: Status: Chronic Code(s): F31.9 - Bipolar disorder, unspecified (2) Post traumatic stress disorder (PTSD): Status: Acute Code(s): F43.10 - Post-traumatic stress disorder, unspecified (3) Borderline personality disorder: Status: Acute Code(s): F60.3 - Borderline personality disorder (4) Cocaine use disorder: Status: Acute Code(s): F14.10 - Cocaine abuse, uncomplicated Plan Patient is a 53 year old female with hx of Bipolar d/o, PTSD, Borderline personality d/o and cocaine use d/o who presented to [facility] via EMS secondary to overdosing on Gabapentin d/t suicidal ideation. Plan: CV 1:1 d/t O2 continue home medications discharge planning Possible lock box for her medications with VNA? 3/2: stable. planning to discharge on her birthday, this coming . continue current mgmt. 12/31: stable. mood good. planning for birthday discharge. continue current mgmt. 01/01: Patient reports feeling good ; pt stated, I feel better with my meds. I wasn't taking them daily . Pt reports she plans on being medication compliant and following up with her outpatient providers. Pt reports she would like to be discharged home tomorrow. denies SI/HI/VH/AH. Patient educated on: diagnosis, medication risk/benefits and therapeutic strategies Informed Consent: understands Reason for continued inpatient stay Substantial Risk for: stable for discharge Time Spent With Patient Time: Total time managing care of this patient today _30___ minutes.
[2024-01-02] MEDS: guaiFENesin 100 MG/5 ML LIQUID PO ×3 (09:05→21:05)
--- NOTE | 2024-01-02 11:16 | PC.NURSE ---
Per DEC documentation Bhavana was vaccinated in July against the flu. Therefore she is unable to receive this admission.
[2024-01-02 20:15] VITALS: BP 127/78; PULSE 85; RESP 16; TEMP 36.6; O2SAT 93
[2024-01-02] MEDS: rOPINIRole HCL 1 MG TABLET PO (20:28)
[2024-01-02] MEDS: chlorproMAZINE HCl 25 MG TABLET 50 MG PO (20:28)
[2024-01-02] MEDS: OLANZapine 10 MG TABLET PO (20:28)
[2024-01-02] MEDS: cloNIDine HCL 0.2 MG TABLET PO (20:29)
[2024-01-02] MEDS: Melatonin 3 MG TABLET PO (20:29)
[2024-01-03 08:06] VITALS: BP 118/74; PULSE 102; RESP 20; TEMP 36.2; O2SAT 98
[2024-01-03] MEDS: Omeprazole 20 MG CAPSULE.DR PO (08:40)
[2024-01-03] MEDS: valACYclovir HCL 1,000 MG TABLET 1000 MG PO (08:40)
[2024-01-03] MEDS: Ferrous Sulfate 324 MG TABLET.DR PO (08:41)
[2024-01-03] MEDS: Cyanocobalamin (Vitamin B-12) 1,000 MCG TABLET 1000 MCG PO (08:41)
[2024-01-03] MEDS: Gabapentin 400 MG CAPSULE PO (08:41)
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
[2024-01-03] MEDS: Lithium Carbonate ER 450 MG TABLET.ER PO (08:42)
[2024-01-03] MEDS: Acetaminophen 325 MG TABLET 650 MG PO (08:42)
[2024-01-03] MEDS: Nicotine 21 MG PATCH.TD24 TRANSDERMA (08:43)
[2024-01-03] MEDS: Tiotropium Bromide 2.5 mcg 1 PUFF/2.5 MCG MIST.INHAL 2 PUFF INHALE (08:46)
[2024-01-03] MEDS: guaiFENesin 100 MG/5 ML LIQUID PO (09:06)
== END 2024-01-03 11:33 | disposition home or self-care (01) | DRG 753 ==
LOC: HO.ED 16:18 → HO.PADLT16 12-29 12:05
PROVIDERS: Emergency Medicine; Psychiatry & Neurology Psychiatry; Admitting Provider Registered Nurse; Emergency Provider Emergency Medicine Emergency Medical Services; PCP Internal Medicine; Responsible Provider Registered Nurse; Visit Provider Psychiatry & Neurology Psychiatry
DX: F31.9 Bipolar disorder, unspecified (principal); F14.10 Cocaine abuse, uncomplicated; F17.210 Nicotine dependence, cigarettes, uncomplicated; F43.10 Post-traumatic stress disorder, unspecified; F60.3 Borderline personality disorder; T42.6X2A Poisoning by other antiepileptic and sedative-hypnotic drugs, intentional self-harm, initial encounter; G47.33 Obstructive sleep apnea (adult) (pediatric); Z71.6 Tobacco abuse counseling; Z20.822 Contact with and (suspected) exposure to COVID-19; Z91.040 Latex allergy status; Z79.899 Other long term (current) drug therapy
CPT/HCPCS: 36415; 80048; 80053; 80061; 80076; 80143; 80178; 80179; 80307; 81003; 83735; 84484; 85025; 87635; 93005; 94640; 94660; 99285; J1630; S9485

== ENCOUNTER → 2023-12-28 13:46 | Outpatient (BNV) | payer MEDICAID, SELFPAY | PROVIDERS: Admitting Provider Registered Nurse; Emergency Provider Emergency Medicine Emergency Medical Services; PCP Internal Medicine; Responsible Provider Registered Nurse; Visit Provider Internal Medicine | DX: R94.31 Abnormal electrocardiogram [ECG] [EKG] (principal) | CPT/HCPCS: 93010 ==

== ENCOUNTER 2023-12-29 12:01 | Outpatient (BNV) | payer MEDICAID, SELFPAY | END 2023-12-29 13:06 | PROVIDERS: Admitting Provider Registered Nurse; Emergency Provider Emergency Medicine Emergency Medical Services; PCP Internal Medicine; Responsible Provider Registered Nurse; Visit Provider Internal Medicine | DX: I45.81 Long QT syndrome (principal) | CPT/HCPCS: 93010 ==

== ENCOUNTER → 2023-12-29 12:01 | Outpatient (BNV) | payer OTHER, SELFPAY | PROVIDERS: Admitting Provider Registered Nurse; Emergency Provider Emergency Medicine Emergency Medical Services; PCP Internal Medicine; Responsible Provider Registered Nurse; Visit Provider Psychiatry & Neurology Psychiatry | DX: F60.3 Borderline personality disorder (principal); F31.4 Bipolar disorder, current episode depressed, severe, without psychotic features; F14.10 Cocaine abuse, uncomplicated; F43.11 Post-traumatic stress disorder, acute | CPT/HCPCS: 99231; 99233 ==

== ENCOUNTER 2024-01-10 15:57 | Emergency (ER) | payer MEDICAID, SELFPAY | END 2024-01-10 19:51 | disposition left against medical advice (07) | PROVIDERS: Emergency Provider Emergency Medicine | DX: Z53.21 Procedure and treatment not carried out due to patient leaving prior to being seen by health care provider (principal); E86.0 Dehydration ==

== ENCOUNTER 2024-02-03 11:36 | Emergency (ER) | payer MEDICAID, SELFPAY ==
[2024-02-03 11:39] VITALS: BP 160/84; PULSE 94; O2SAT 92
[2024-02-03 12:04] VITALS: BP 108/64; PULSE 105; RESP 20; TEMP 36.8; O2SAT 88; BMI 39.9
--- NOTE | 2024-02-03 12:06 | ED.GENADULT ---
HPI - General Adult General Chief complaint: Abdominal Pain Stated complaint: ABD AND LOWER BACK PAIN DIARRHEA Source: patient and EMS Mode of arrival: EMS Limitations: no limitations History of Present Illness HPI narrative: Patient is a 54 year old assigned female at with a history of COPD on PRN oxygen, bipolar disorder, and anxiety presenting to the emergency department today with lower abdominal pain, diarrhea, chest pain, headache, and back pain. Patient states that she has abdominal pain, chest pain, diarrhea, headache, and back pain. Patient states that her oxygen has been annoying her nostrils so she has been taking it out of her nose. Patient denies any dizziness, lightheadedness, nausea, vomiting, fever, chills, blurry vision, double vision, loss of vision, difficulty breathing, shortness of breath, night sweats, pain with urination, increased urinary frequency, increased urinary urgency, blood in her urine or stool, syncope or a near syncopal episode, recent trauma or falls, bowel incontinence, bladder incontinence, bowel retention, bladder retention, or any other complaints at this time. Relieving factors: none Exacerbating factors: none Associated symptoms: chest pain and headaches Treatments prior to arrival: none Related Data Home Medications ?Medication ?Instructions ?Recorded ?Confirmed lithium carbonate 450 mg 450 mg PO TID 05/14/23 12/29/23 tablet,extended release cyanocobalamin (vitamin B-12) 1,000 mcg PO DAILY 06/11/23 12/29/23 1,000 mcg tablet (Vitamin B-12) ipratropium 0.5 mg-albuterol 3 mg 3 ml inhalation RQ6H PRN Shortness 06/11/23 12/29/23 (2.5 mg base)/3 mL nebulization Of Breath Or Wheezing soln gabapentin 400 mg capsule 400 mg PO TID 10/24/23 12/29/23 cetirizine 10 mg tablet 10 mg PO DAILY PRN Allergy Symptoms 12/19/23 12/29/23 melatonin 3 mg tablet 3 mg PO BEDTIME 12/19/23 12/29/23 nicotine (polacrilex) 2 mg gum 2 mg buccal Q2H PRN Nicotine 12/19/23 12/29/23 Cravings valacyclovir 500 mg tablet 500 mg PO DAILY 12/19/23 12/29/23 nicotine 21 mg/24 hr daily 1 patch transdermal DAILY 12/29/23 12/29/23 transdermal patch omeprazole 20 mg capsule,delayed 20 mg PO DAILY@0630 12/29/23 12/29/23 release Previous Rx's ?Medication ?Instructions ?Recorded albuterol sulfate 90 mcg/actuation 2 puff inhalation Q4H PRN 03/22/23 aerosol inhaler (Ventolin HFA) shortness of breath or wheezing #6.7 grams clonidine HCl 0.2 mg tablet 0.2 mg PO BEDTIME #30 tabs 03/22/23 ferrous sulfate 324 mg (65 mg 324 mg PO DAILY #30 tabs 03/22/23 iron) tablet,delayed release olanzapine 10 mg tablet 10 mg PO BEDTIME #30 tabs 03/22/23 ropinirole 1 mg tablet 1 mg PO BEDTIME #30 tabs 03/22/23 tiotropium bromide 18 mcg capsule 18 mcg inhalation RDAILY #20 03/22/23 with inhalation device (Spiriva inhalations with HandiHaler) Allergies Allergy/AdvReac Type Severity Reaction Status Date / Time aspirin Allergy Mild Anaphylaxis Verified 02/03/24 12:06 ampicillin Allergy Rash Verified 02/03/24 12:06 Penicillins Allergy Anaphylaxis Verified 02/03/24 12:06 latex AdvReac Rash Verified 02/03/24 12:06 Latex, Natural Rubber AdvReac Rash Verified 02/03/24 12:06 seafood AdvReac Anaphylaxis Verified 02/03/24 12:06 Sulfa (Sulfonamide AdvReac Hives Verified 02/03/24 12:06 Antibiotics) Review of Systems Constitutional: Constitutional: Reports no additional constitutional complaints, Denies chills, Denies fever(s), Reports headache(s) and Denies night sweats Eyes: Eyes: Reports no additional eye complaints, Denies blurry vision, Denies change in vision, Denies diplopia, Denies eye discharge, Denies loss of vision and Denies eye pain ENT: Denies dizziness and Reports headache(s) Cardiovascular: Cardiovascular: Reports no additional cardiovascular complaints, Reports chest pain, Denies lightheadedness, Denies Loss of Consciousness and Denies dyspnea Respiratory: Respiratory: Reports no additional respiratory complaints and Denies dyspnea Gastrointestinal: Gastrointestinal: Reports no additional gastrointestinal complaints, Reports abdominal pain, Denies melena, Denies hematochezia, Denies change in bowel habits and Denies change in stool character Genitourinary: Genitourinary: Denies hematuria, Denies urinary frequency, Denies dysuria, Denies urinary incontinence, Denies urinary hesitancy and Denies urinary urgency Musculoskeletal: Musculoskeletal: Reports no additional musculoskeletal complaints, Reports back pain, Denies numbness and Denies tingling Neurologic: Denies dizziness, Reports headache(s), Denies loss of vision, Denies numbness and Denies tingling Psychiatric: Psychiatric: Reports no additional psychiatric complaints Endocrine: Endocrine: Reports no additional endocrine complaints Hematologic/Lymphatic: Hematologic/Lymphatic: Reports no additional hematologic/lymphatic complaints Allergic/Immunologic: Allergic/Immunologic: Reports no additional allergic/immunologic complaints [facility] Past Medical History Attestation statement: The following information was validated with the patient. Source: old records reviewed and nursing notes reviewed Medical History Bipolar I disorder with depression Overdose on Tylenol Suicide attempt Asthma COPD (chronic obstructive pulmonary disease) Chronic lung disease Neoplasm of parotid gland Depression 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 Drug abuse Bipolar I disorder Post traumatic stress disorder (PTSD) Tobacco use disorder FABIOLA (obstructive sleep apnea) Borderline personality disorder Intermittent explosive disorder Asthma exacerbation in COPD Herpes Tobacco use Bipolar disorder COPD (chronic obstructive pulmonary disease) Surgical History History of ankle surgery History of back surgery Hx of cholecystectomy History of appendectomy Family History Family History Mother COPD (chronic obstructive pulmonary disease) Social History Social History Household Members: None Household Members Other:: Jail in [place] Housing: Apartment Housing Other:: Sleeps on the couch at [facility] house Do you presently have visiting nurse or other home services: No Unable to assess alcohol history related to: Unknown Alcohol intake: current Alcohol intake frequency: holidays/special occasions only Alcohol type: hard liquor Comment: 1;1 DUE TO O2 Patient Tobacco Use Status: Current everyday Tobacco user Tobacco use type: Cigarette Cigarette Packs Per Day: 0.25 Cigarettes Per Day: 5.0 Years Smoked: 20 e-Cigarette/Vaping Use: Never Used Second Hand Smoke Exposure: No Substance Use Type: Crack/Cocaine Advance Directives: Yes Advance Directives on File: Yes Advance Directives Date on File: 06/17/22 service: No Current occupational status: unemployed and disabled Sexual orientation: Straight/Heterosexual Physical Exam ED Vital Signs: Vital Signs - 24 hr 02/03/24 12:04 Temperature 98.2 F Pulse Rate 105 H Respiratory Rate 20 Blood Pressure 108/64 Pulse Oximetry 88 L Oxygen Delivery Method Room Air BMI result Body Mass Index 39.9 Const General: cooperative, no acute distress, alert and awake Nutritional Appearance: well nourished Orientation/consciousness: patient oriented x3 Limitations: no limitations HENMT Head: Yes normal to inspection and Yes atraumatic Ears: hearing grossly normal bilaterally and external ears normal General nose exam: Normal external nose present, no nasal discharge noted and no epistaxis Face and sinus: Yes normal facial exam, No abrasion and No laceration Mouth: Normal oral and palatal mucosa present, no drooling and no muffled voice Eyes General: appearance normal, both eyes and all related structures Periorbital: periorbital findings normal Eyelids: Yes eyelids normal Conjunctivae: conjunctivae normal Pupils: Equal, round and reactive pupils present EOM: EOMs intact bilaterally Neck Neck: Yes normal visual inspection, Yes full ROM and Yes no lymphadenopathy Chest Chest palpation & inspection: normal inspection of the chest Resp Effort & Inspection: normal respiratory effort and able to speak in complete sentences GI Inspection: Yes normal to inspection Neuro General: patient oriented x3 and moves all extremities Cranial nerves: Yes Equal, round and reactive pupils present Cognition (Neuro): normal cognition Motor exam (neuro): 5/5 motor strength present throughout Sensory Exam: Normal double simultaneous stimulation for sensation Coordination: [id number] test normal Extrem General: Yes normal to inspection, Yes full ROM and Yes capillary refill normal Psych Appearance: grossly normal Mental Status: mental status grossly normal Affect: normal affect Attitude: cooperative Thought process: Normal thought process present Thought content: Normal thought content present Insight: Good insight present (Psych) Course Course Course Narrative: RME performed by Dariana Haq PA-C. Patient is a 54 year old assigned female at presenting to the emergency department with abd and low back pain. Detailed physical exam and review of systems are deferred to the primary class teacher. Labs and swabs ordered. Patient placed back in the waiting room pending room availability and results. Medical Decision Making Medical Decision Making MDM Narrative: Patient is a 54 year old assigned female at with a history of COPD on PRN oxygen, bipolar disorder, and anxiety presenting to the emergency department today with abdominal pain, chest pain, diarrhea, headache, and back pain. Patient's limited physical exam performed in triage was unremarkable. Patient refused to replace her oxygen canula back in her nose. Patient's oxygen saturation was 93% when she wore her oxygen as instructed but when she removed it, she went down to 89%. Patient was in no respiratory distress. Patient's blood work was unremarkable. Patient's EKG was unremarkable. Patient left the department without completing treatment. Patient left the department before myself or any of the other emergency department clinicians could explain to or review with the patient; physical exam findings, test results, need or lack there of for additional testing, need or lack there of to perform a procedure, need or lack there of for hospital admission / transfer, need or lack there of for prescription medication, treatment options, or a treatment plan. Differential Diagnosis Differential Diagnoses: The differential diagnosis associated with the presentation includes Chest pain Abdominal pain Chronic pain Anxiety Viral illness Admission/Observation Consideration of admission/observation: Escalation of care including admission/observation considered Patient would have been admitted to the hospital had she completed her work up and it had any findings where hospital admission was appropriate, her clinical presentation warranted hospital admission, had myself or any other emergency chief librarian circulation department had the ability to discuss need or lack there of for hospital admission, and the patient hadn't left the department without completing treatment. Lab Data [facility] Lab Attestation statement: I reviewed the patient's lab results. My interpretation of these results are in the [facility] Rationale portion of this note. 02/03/24 12:56 02/03/24 12:56 Labs: Lab Results 02/03/24 Range/Units 12:56 WBC 10.3 (4.8-10.8) X10*3/uL RBC 5.17 (4.20-5.50) X10*6/uL Hgb 15.8 (12.0-16.0) g/dl Hct 49.1 H (37.0-47.0) % MCV 95.0 (80.0-98.0) fL MCH 30.6 (27.0-33.0) pg MCHC 32.2 (31.0-35.0) g/dl RDW 13.9 (11.0-16.0) % Plt Count 257 D (160-400) X10*3/uL MPV 9.7 (9.4-12.3) fL Immature Gran % (Auto) 0.2 (0.0-0.4) % Neut % (Auto) 75.9 H (45-73) % Lymph % (Auto) 15.6 L (20-40) % [place] % (Auto) 6.8 (2-11) % Eos % (Auto) 0.9 (0-4) % Baso % (Auto) 0.6 (0-2) % Lymph # (Auto) 1.6 (1.2-4.9) X10*3/uL [place] # (Auto) 0.7 (0.1-1.2) X10*3/uL Eos # (Auto) 0.1 (0.0-0.4) X10*3/uL Baso # (Auto) 0.1 (0.0-0.2) X10*3/uL Abs Immat Gran (auto) 0.02 (0.00-0.03) X10*3/uL Absolute Neuts (auto) 7.8 (2.0-8.3) x10*3/uL Absolute Nucleated RBC 0.000 (0.0-0.012) X10*3/uL Nucleated RBC % (auto) 0.0 (0.0-0.2) /100WBC Sodium 139 (135-145) mmol/L Potassium 3.7 (3.3-5.1) mmol/L Chloride 102 (96-108) mmol/L Carbon Dioxide 26 (22-29) mmol/L Anion Gap 15 (12-20) BUN 11 (9-16) mg/dL Creatinine 0.60 (0.5-1.4) mg/dL Estim Creat Clear Calc 133.0 Estimated GFR > 60 Random Glucose 81 (60-115) mg/dL Calcium 9.8 (8.4-10.2) mg/dL Magnesium 2.0 (1.6-2.6) mg/dL Total Bilirubin 0.7 (0.0-1.0) mg/dL AST 11 (5-31) U/L ALT 12 (0-31) U/L Alkaline Phosphatase 80 (39-117) U/L Troponin I High Sens < 2.7 (<3.5-17.0) ng/L Total Protein 7.2 (6.5-8.0) g/dL Albumin 4.5 (3.5-5.0) g/dL Influenza Type A (PCR) NEGATIVE (Negative) Influenza Type B (PCR) NEGATIVE (Negative) RSV RNA Qual (PCR) NEGATIVE (Negative) SARS-CoV-2 RNA (RT-PCR) NEGATIVE (Negative) Independent Interpretation I performed an independent interpretation of an: EKG Interpretation: Vent. Rate: 083 BPM Atrial Rate: 083 BPM P-R Int: 144 ms QRS Dur: 088 ms QT Int: 388 ms P-R-T Axes: -03 017 016 degrees QTc Int: 455 ms Normal sinus rhythm with sinus arrhythmia Nonspecific T wave abnormality Abnormal ECG When compared with ECG of 29-DEC-2023 19:26, No significant change was found Electronically Signed By:DAVID VALDEZ MD Dictated By: David Valdez MD Signed By: Electronically signed by David Valdez MD 02/03/24 [id number] Independent Historian Clinical information obtained from an independent historian. History obtained from or confirmed by: EMS (EMS provided additional history and confirmed the history provided by the patient.) Discharge Plan Discharge Clinical Impression: Chest pain, Anxiety, Abdominal pain Patient Disposition: Left W/O Completing Treatment Prescriptions: No Action ropinirole 1 mg Tablet 1 mg PO BEDTIME Qty: 30 0RF olanzapine 10 mg Tablet 10 mg PO BEDTIME Qty: 30 0RF clonidine HCl 0.2 mg Tablet 0.2 mg PO BEDTIME Qty: 30 0RF Protocol: Hold for SBP< HOLD for SBP < : 90 albuterol sulfate [Ventolin HFA] 90 mcg/actuation Hfa Aerosol Inhaler 2 puff inhalation Q4H PRN (Reason: shortness of breath or wheezing) Qty: 6.7 0RF tiotropium bromide [Spiriva with HandiHaler] 18 mcg Capsule, W/Inhalation Device 18 mcg inhalation RDAILY Qty: 20 0RF ferrous sulfate 324 mg (65 mg iron) Tablet,Delayed Release (Dr/Ec) 324 mg PO DAILY Qty: 30 0RF cetirizine 10 mg Tablet 10 mg PO DAILY PRN (Reason: Allergy Symptoms) nicotine (polacrilex) 2 mg Gum 2 mg BUCCAL Q2H PRN (Reason: Nicotine Cravings) melatonin 3 mg Tablet 3 mg PO BEDTIME valacyclovir 500 mg Tablet 500 mg PO DAILY nicotine 21 mg/24 hr Patch 24 Hour 1 patch TRANSDERMAL DAILY omeprazole 20 mg Capsule,Delayed Release(Dr/Ec) 20 mg PO DAILY@0630 lithium carbonate 450 mg tablet extended release 450 mg PO TID cyanocobalamin (vitamin B-12) [Vitamin B-12] 1,000 mcg tablet 1,000 mcg PO DAILY ipratropium-albuterol 0.5 mg-3 mg(2.5 mg base)/3 mL solution for nebulization 3 ml inhalation RQ6H PRN (Reason: Shortness Of Breath Or Wheezing) gabapentin 400 mg Capsule 400 mg PO TID Discharge Date/Time: 02/03/24 17:41
--- NOTE | 2024-02-03 12:07 | ECG_ITS ---
Test Reason : BACK PAIN Blood Pressure : / mmHG Vent. Rate : 083 BPM Atrial Rate : 083 BPM P-R Int : 144 ms QRS Dur : 088 ms QT Int : 388 ms P-R-T Axes : -03 017 016 degrees QTc Int : 455 ms Normal sinus rhythm with sinus arrhythmia Nonspecific T wave abnormality Abnormal ECG When compared with ECG of 29-DEC-2023 19:26, No significant change was found Referred By: Dariana Haq Electronically Signed By:VAIBHAV KILLIAN MD
[2024-02-03 13:03] LABS: MANUAL DIFF FLAG NO
[2024-02-03 13:06] LABS: Basophils Absolute Auto 0.1 X10*3/uL (0.0-0.2); Basophils Percent Auto 0.6 % (0-2); Eosinophils Absolute Auto 0.1 X10*3/uL (0.0-0.4); Eosinophils Percent Auto 0.9 % (0-4); Hematocrit 49.1 % (37.0-47.0); Hemoglobin 15.8 g/dl (12.0-16.0); Imm Gran Abs Auto 0.02 X10*3/uL (0.00-0.03); Imm Gran Pct Auto 0.2 % (0.0-0.4); Lymphocytes Absolute Auto 1.6 X10*3/uL (1.2-4.9); Lymphocytes Percent Auto 15.6 % (20-40); Mean Corpuscular HGB Conc 32.2 g/dl (31.0-35.0); Mean Corpuscular Hemoglobin 30.6 pg (27.0-33.0); Mean Platelet Volume 9.7 fL (9.4-12.3); Monocytes Absolute Auto 0.7 X10*3/uL (0.1-1.2); Monocytes Percent Auto 6.8 % (2-11); Neutrophils Absolute Auto 7.8 x10*3/uL (2.0-8.3); Neutrophils Percent Auto 75.9 % (45-73); Platelet Count 257 X10*3/uL (160-400); Red Blood Count 5.17 X10*6/uL (4.20-5.50); Red Cell Distribution Width 13.9 % (11.0-16.0); White Blood Count 10.3 X10*3/uL (4.8-10.8)
[2024-02-03 13:21] LABS: Alanine Aminotransferase 12 U/L (0-31); Albumin Level 4.5 g/dL (3.5-5.0); Alkaline Phosphatase 80 U/L (39-117); Anion Gap 15 (12-20); Aspartate Amino Transferase 11 U/L (5-31); Bilirubin Total 0.7 mg/dL (0.0-1.0); Blood Urea Nitrogen 11 mg/dL (9-16); Calcium 9.8 mg/dL (8.4-10.2); Carbon Dioxide 26 mmol/L (22-29); Chloride 102 mmol/L (96-108); Estimated Glomerular Filt Rate > 60; Glucose Random 81 mg/dL (60-115); Potassium 3.7 mmol/L (3.3-5.1); Sodium 139 mmol/L (135-145); Total Protein 7.2 g/dL (6.5-8.0)
[2024-02-03 13:28] LABS: Troponin-I High Sensitivity < 2.7 ng/L (<3.5-17.0)
[2024-02-03 13:42] LABS: Influenza A PCR NEGATIVE (Negative); Influenza B PCR NEGATIVE (Negative); Resp Syncy Virus RNA Qual PCR NEGATIVE (Negative); SARS COV2 PCR INHOUSE NEGATIVE (Negative)
== END 2024-02-03 17:41 | disposition left against medical advice (07) ==
PROVIDERS: Physician Assistant Medical; Emergency Provider Emergency Medicine; PCP Internal Medicine
DX: R10.30 Lower abdominal pain, unspecified (principal); R07.9 Chest pain, unspecified; F41.9 Anxiety disorder, unspecified; J44.9 Chronic obstructive pulmonary disease, unspecified; Z99.81 Dependence on supplemental oxygen; Z88.0 Allergy status to penicillin; Z88.2 Allergy status to sulfonamides; Z88.5 Allergy status to narcotic agent
CPT/HCPCS: 0241U; 80053; 83735; 84484; 85025; 93005; 99283

== ENCOUNTER → 2024-02-03 12:07 | Outpatient (BNV) | payer MEDICAID, SELFPAY | PROVIDERS: PCP Internal Medicine; Visit Provider Internal Medicine Cardiovascular Disease | DX: R94.31 Abnormal electrocardiogram [ECG] [EKG] (principal) | CPT/HCPCS: 93010 ==

== ENCOUNTER 2024-02-05 10:23 | Inpatient (IN) | payer MEDICAID, SELFPAY ==
[2024-02-05] VITALS (12 sets, daily range): BP systolic 110–134; BP diastolic 66–80; PULSE 80–93; RESP 15–24; TEMP 36.6–37; O2SAT 88–96; BMI 42.9
--- NOTE | ~2024-02-05 | XR_ITS ---
EXAMINATION: XR CHEST CLINICAL INFORMATION: Dyspnea. COMPARISON: Chest radiograph 12/19/2023. TECHNIQUE: 2 views of the chest were obtained. FINDINGS: Increased diffuse interstitial prominence. No dense consolidation, pleural effusion or pneumothorax. Stable prominence of the cardiomediastinal silhouette. No acute osseous findings. Visualized upper abdomen is within normal limits. XR/XR chest 2V IMPRESSION: Increased interstitial prominence which is nonspecific and could be associated with asthma, bronchitis, reactive airways disease or atypical infections.
--- NOTE | ~2024-02-05 | CT_ITS ---
EXAMINATION: CT ANGIOGRAM OF THE CHEST WITH AND WITHOUT CONTRAST (CT PULMONARY ANGIOGRAM FOR PE) CLINICAL INFORMATION: Reason for Exam hypoxia, rule out PE COMPARISON: CTA chest on 06/02/2022 TECHNIQUE: Prior to contrast administration, noncontrast localization images were obtained. Subsequently, multidetector volumetric imaging was performed from the thoracic inlet to below the diaphragms following the administration of 65 mL Omnipaque 350 intravenous contrast. No contrast reaction reported Sagittal, coronal, and MIP oblique sagittal reformatted images were obtained on the CT workstation, uploaded to PACS, and reviewed. This CT examination was performed using dose optimization techniques as appropriate, variously including the following: *Automated exposure control *Adjustment of mA and/or kV according to patient size (this includes techniques or standardized protocols for targeted exams where dose is matched to indication/reason for exam; i.e. extremities or head) *Use of iterative reconstruction technique Total exam dose-length product 517 mGy-cm FINDINGS: QUALITY OF STUDY/CONTRAST BOLUS: Satisfactory. PULMONARY ARTERIES: There is a right lower lobe segmental pulmonary embolus. No additional pulmonary emboli are identified. THORACIC AORTA: No aneurysm. LUNG: Scattered micronodules. Mosaic attenuation of the lung parenchyma. Tree-in-bud opacities in the lingula. PLEURA: No pleural effusion or pneumothorax. MEDIASTINUM: Normal heart size. No pericardial effusion. No hilar or mediastinal lymphadenopathy. No evidence of septal bowing or right heart strain. CORONARY ARTERY CALCIFICATION: None visualized on this study. CHEST WALL/AXILLA: No axillary or internal mammary lymphadenopathy. OSSEOUS STRUCTURES: No acute or suspicious osseous abnormality. UPPER ABDOMEN: Unremarkable. No reflux of contrast into the hepatic veins to suggest elevated right heart pressures. CT/CT angio chest PE protocol IMPRESSION: 1. Right lower lobe segmental pulmonary embolus. 2. Tree-in-bud opacities in the lingula may be infectious/inflammatory in etiology. VTE: positive.
--- NOTE | ~2024-02-05 | US_ITS ---
EXAMINATION: US VENOUS ULTRASOUND WITH DOPPLER LOWER EXTREMITY, BILATERAL CLINICAL INFORMATION: Source of pulmonary emboli COMPARISON: None available. TECHNIQUE: Ultrasound of the deep veins is performed from the hip to the calf with compression sonography and color and pulse Doppler assessment. Spectral analysis with color-flow imaging is performed. FINDINGS: RIGHT: There is normal venous compression and respiratory variation and augmented flow. The visualized common femoral vein, superficial femoral vein, profunda femoral vein, popliteal vein, and the trifurcation region shows no evidence of deep venous thrombosis. There is no significant popliteal fossa cyst. LEFT: There is normal venous compression and respiratory variation and augmented flow. The visualized common femoral vein, superficial femoral vein, profunda femoral vein, popliteal vein, and the trifurcation region shows no evidence of deep venous thrombosis. There is no significant popliteal fossa cyst. If the patient's symptoms persist, followup ultrasound in 5 days 7 days might be of value to exclude proximal propagation from a non-visualized calf vein. US/US venous duplex LE BI IMPRESSION: No DVT demonstrated in either lower extremity.
[2024-02-05] MEDS: Albuterol Sulfate 5 MG, Albuterol/Iprat 2.5/0.5MG 3 ML 3 ML INHALE ×2 (10:41→12:48)
--- NOTE | 2024-02-05 11:11 | ED.SOB ---
HPI - SOB/Dyspnea General Chief Complaint: Dyspnea Stated Complaint: DIFF BREATHING PER EMS Time Seen by Provider: 02/05/24 11:07 Source: patient Mode of arrival: ambulatory Limitations: no limitations History of Present Illness HPI Narrative: 54-year-old female with COPD well known to emergency department with history of crack cocaine use bipolar disorder UTIs PTSD pneumonia borderline personality disorder last seen here 2 days ago for SI and1 month ago for abdominal pain. Patient came in hypoxic at 88% is down to L she has not normally on oxygen patient has any falls or injuries MD elicited complaint: shortness of breath, cough and asthma attack Related Data Home Medications ?Medication ?Instructions ?Recorded ?Confirmed lithium carbonate 450 mg 450 mg PO TID 05/14/23 12/29/23 tablet,extended release cyanocobalamin (vitamin B-12) 1,000 mcg PO DAILY 06/11/23 12/29/23 1,000 mcg tablet (Vitamin B-12) ipratropium 0.5 mg-albuterol 3 mg 3 ml inhalation RQ6H PRN Shortness 06/11/23 12/29/23 (2.5 mg base)/3 mL nebulization Of Breath Or Wheezing soln gabapentin 400 mg capsule 400 mg PO TID 10/24/23 12/29/23 cetirizine 10 mg tablet 10 mg PO DAILY PRN Allergy Symptoms 12/19/23 12/29/23 melatonin 3 mg tablet 3 mg PO BEDTIME 12/19/23 12/29/23 nicotine (polacrilex) 2 mg gum 2 mg buccal Q2H PRN Nicotine 12/19/23 12/29/23 Cravings valacyclovir 500 mg tablet 500 mg PO DAILY 12/19/23 12/29/23 nicotine 21 mg/24 hr daily 1 patch transdermal DAILY 12/29/23 12/29/23 transdermal patch omeprazole 20 mg capsule,delayed 20 mg PO DAILY@0630 12/29/23 12/29/23 release Previous Rx's ?Medication ?Instructions ?Recorded albuterol sulfate 90 mcg/actuation 2 puff inhalation Q4H PRN 03/22/23 aerosol inhaler (Ventolin HFA) shortness of breath or wheezing #6.7 grams clonidine HCl 0.2 mg tablet 0.2 mg PO BEDTIME #30 tabs 03/22/23 ferrous sulfate 324 mg (65 mg 324 mg PO DAILY #30 tabs 03/22/23 iron) tablet,delayed release olanzapine 10 mg tablet 10 mg PO BEDTIME #30 tabs 03/22/23 ropinirole 1 mg tablet 1 mg PO BEDTIME #30 tabs 03/22/23 tiotropium bromide 18 mcg capsule 18 mcg inhalation RDAILY #20 03/22/23 with inhalation device (Spiriva inhalations with HandiHaler) Allergies Allergy/AdvReac Type Severity Reaction Status Date / Time aspirin Allergy Mild Anaphylaxis Verified 02/05/24 10:29 ampicillin Allergy Rash Verified 02/05/24 10:29 Penicillins Allergy Anaphylaxis Verified 02/05/24 10:29 latex AdvReac Rash Verified 02/05/24 10:29 Latex, Natural Rubber AdvReac Rash Verified 02/05/24 10:29 seafood AdvReac Anaphylaxis Verified 02/05/24 10:29 Sulfa (Sulfonamide AdvReac Hives Verified 02/05/24 10:29 Antibiotics) Review of Systems Review of Systems: Review of systems: General: Patient denies any fever chills recent illness or falls Musculoskeletal: Denies back pain or body aches or other injuries HEENT: denies headache, runny nose, ear pain Respiratory: shortness of breath, cough Cardiovascular: no chest pain or palpitations : denies dysuria, frequency Abdomen: no nausea vomiting denies abdominal pain Extremities: no swelling, no pain Skin: no diaphoresis Yes all other systems are reviewed and are negative [facility] Past Medical History Medical History Bipolar I disorder with depression Overdose on Tylenol Suicide attempt Asthma COPD (chronic obstructive pulmonary disease) Chronic lung disease Neoplasm of parotid gland Depression 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 Drug abuse Bipolar I disorder Post traumatic stress disorder (PTSD) Tobacco use disorder FABIOLA (obstructive sleep apnea) Borderline personality disorder Intermittent explosive disorder Asthma exacerbation in COPD Herpes Tobacco use Bipolar disorder COPD (chronic obstructive pulmonary disease) Surgical History History of ankle surgery History of back surgery Hx of cholecystectomy History of appendectomy Family History Family History Mother COPD (chronic obstructive pulmonary disease) Social History Social History Household Members: None Household Members Other:: Assisted in [place] Housing: Apartment Housing Other:: Sleeps on the couch at [facility] house Do you presently have visiting nurse or other home services: No Unable to assess alcohol history related to: Unknown Alcohol intake: current Alcohol intake frequency: holidays/special occasions only Alcohol type: hard liquor Comment: 1;1 DUE TO O2 Patient Tobacco Use Status: Current everyday Tobacco user Tobacco use type: Cigarette Cigarette Packs Per Day: 0.25 Cigarettes Per Day: 5.0 Years Smoked: 20 Smoked in Last 30 Days: Yes e-Cigarette/Vaping Use: Never Used Second Hand Smoke Exposure: No Substance Use Type: Crack/Cocaine Advance Directives: Yes Advance Directives on File: Yes Advance Directives Date on File: 06/17/22 service: No Current occupational status: unemployed and disabled Sexual orientation: Straight/Heterosexual Physical Exam Vital Signs: Vital Signs: Last Vital Signs Temp 98.4 F 02/05/24 10:24 Pulse 82 02/05/24 10:38 Resp 18 02/05/24 10:38 BP 121/69 02/05/24 10:24 Pulse Ox 88 L 02/05/24 10:24 O2 Del Method Room Air 02/05/24 10:24 BMI result Body Mass Index 42.9 General: Well-appearing well-nourished in no signs of distress HEENT: Normocephalic atraumatic Neck: No signs of JVD, no masses no tenderness or lymphadenopathy Cardiovascular: Regular rate and rhythm Respiratory: Wheezing and rhonchi bilaterally Abdomen: Soft nontender no masses Extremities: Normal pedal pulses no signs of edema Skin: Dry warm no rashes Back: No tenderness full ROM Medications Administered Discontinued Medications Generic Name Dose Route Start Last Admin Trade Name Freq PRN Reason Stop Dose Admin Albuterol Sulfate 5 mg/ 0 mg 02/05/24 10:35 02/05/24 10:41 Albuterol/Ipratropium 3 ml INHALE 02/05/24 10:36 7.5 each ONCE ONE Administration Medical Decision Making Medical Decision Making [facility] Narrative: I will give the patient over for x-ray and labs patient is hypoxic for hypoxia does not resolve think the patient will need admission for COPD exacerbation Differential Diagnosis Differential Diagnoses: The differential diagnosis associated with the presentation includes Hypoxia pneumonia COPD exacerbation RSV COVID flu Admission/Observation Consideration of admission/observation: Escalation of care including admission/observation considered Patient remains hypoxic on the patient to Medicine Consult Healthcare Provider Management of the patient was discussed with: Hospitalist I discussed the case with Dr. Caldwell Lab Data MDM Lab Attestation statement: I reviewed the patient's lab results. 02/05/24 11:45 02/05/24 11:45 Labs: Lab Results 02/05/24 Range/Units 11:45 WBC 10.3 (4.8-10.8) X10*3/uL RBC 5.15 (4.20-5.50) X10*6/uL Hgb 15.8 (12.0-16.0) g/dl Hct 48.2 H (37.0-47.0) % MCV 93.6 (80.0-98.0) fL MCH 30.7 (27.0-33.0) pg MCHC 32.8 (31.0-35.0) g/dl RDW 13.7 (11.0-16.0) % Plt Count 206 (160-400) X10*3/uL MPV 10.3 (9.4-12.3) fL Immature Gran % (Auto) 0.7 H (0.0-0.4) % Neut % (Auto) 70.3 (45-73) % Lymph % (Auto) 19.7 L (20-40) % [place] % (Auto) 7.1 (2-11) % Eos % (Auto) 1.5 (0-4) % Baso % (Auto) 0.7 (0-2) % Lymph # (Auto) 2.0 (1.2-4.9) X10*3/uL [place] # (Auto) 0.7 (0.1-1.2) X10*3/uL Eos # (Auto) 0.2 (0.0-0.4) X10*3/uL Baso # (Auto) 0.1 (0.0-0.2) X10*3/uL Abs Immat Gran (auto) 0.07 H (0.00-0.03) X10*3/uL Absolute Neuts (auto) 7.3 (2.0-8.3) x10*3/uL Absolute Nucleated RBC 0.000 (0.0-0.012) X10*3/uL Nucleated RBC % (auto) 0.0 (0.0-0.2) /100WBC Smear Tech's Comments VERIFIED Sodium 136 (135-145) mmol/L Potassium 3.9 (3.3-5.1) mmol/L Chloride 101 (96-108) mmol/L Carbon Dioxide 23 (22-29) mmol/L Anion Gap 16 (12-20) BUN 7 L (9-16) mg/dL Creatinine 0.65 (0.5-1.4) mg/dL Estim Creat Clear Calc 127.9 Estimated GFR > 60 Random Glucose 150 H (60-115) mg/dL Calcium 9.8 (8.4-10.2) mg/dL Independent Interpretation I performed an independent interpretation of an: EKG, Rhythm Strip and Plain X-Ray External Record Review External record reviewed: Inpatient record Social Determinants Patient?s care significantly limited by Social Determinants of Health including: Inadequate housing, Alcoholism and drug addiction in family and Problems related to primary support group Core Measures AMI core measures followed: Yes Discharge Plan Discharge Clinical Impression: Acute exacerbation of chronic obstructive pulmonary disease, Hypoxia Patient Disposition: Admitted As Inpatient Prescriptions: No Action ropinirole 1 mg Tablet 1 mg PO BEDTIME Qty: 30 0RF olanzapine 10 mg Tablet 10 mg PO BEDTIME Qty: 30 0RF clonidine HCl 0.2 mg Tablet 0.2 mg PO BEDTIME Qty: 30 0RF Protocol: Hold for SBP< HOLD for SBP < : 90 albuterol sulfate [Ventolin HFA] 90 mcg/actuation Hfa Aerosol Inhaler 2 puff inhalation Q4H PRN (Reason: shortness of breath or wheezing) Qty: 6.7 0RF tiotropium bromide [Spiriva with HandiHaler] 18 mcg Capsule, W/Inhalation Device 18 mcg inhalation RDAILY Qty: 20 0RF ferrous sulfate 324 mg (65 mg iron) Tablet,Delayed Release (Dr/Ec) 324 mg PO DAILY Qty: 30 0RF cetirizine 10 mg Tablet 10 mg PO DAILY PRN (Reason: Allergy Symptoms) nicotine (polacrilex) 2 mg Gum 2 mg BUCCAL Q2H PRN (Reason: Nicotine Cravings) melatonin 3 mg Tablet 3 mg PO BEDTIME valacyclovir 500 mg Tablet 500 mg PO DAILY nicotine 21 mg/24 hr Patch 24 Hour 1 patch TRANSDERMAL DAILY omeprazole 20 mg Capsule,Delayed Release(Dr/Ec) 20 mg PO DAILY@0630 lithium carbonate 450 mg tablet extended release 450 mg PO TID cyanocobalamin (vitamin B-12) [Vitamin B-12] 1,000 mcg tablet 1,000 mcg PO DAILY ipratropium-albuterol 0.5 mg-3 mg(2.5 mg base)/3 mL solution for nebulization 3 ml inhalation RQ6H PRN (Reason: Shortness Of Breath Or Wheezing) gabapentin 400 mg Capsule 400 mg PO TID Print Language: Norwegian
[2024-02-05 11:55] LABS: Basophils Absolute Auto 0.1 X10*3/uL (0.0-0.2); Basophils Percent Auto 0.7 % (0-2); Eosinophils Absolute Auto 0.2 X10*3/uL (0.0-0.4); Eosinophils Percent Auto 1.5 % (0-4); Hematocrit 48.2 % (37.0-47.0); Hemoglobin 15.8 g/dl (12.0-16.0); Imm Gran Abs Auto 0.07 X10*3/uL (0.00-0.03); Imm Gran Pct Auto 0.7 % (0.0-0.4); Lymphocytes Percent Auto 19.7 % (20-40); MANUAL DIFF FLAG SCAN; Mean Corpuscular HGB Conc 32.8 g/dl (31.0-35.0); Mean Corpuscular Hemoglobin 30.7 pg (27.0-33.0); Mean Corpuscular Volume 93.6 fL (80.0-98.0); Monocytes Absolute Auto 0.7 X10*3/uL (0.1-1.2); Monocytes Percent Auto 7.1 % (2-11); Neutrophils Absolute Auto 7.3 x10*3/uL (2.0-8.3); Neutrophils Percent Auto 70.3 % (45-73); PLT CLUMP 1; Red Blood Count 5.15 X10*6/uL (4.20-5.50); Red Cell Distribution Width 13.7 % (11.0-16.0); SCAN SMEAR FLAG 1; White Blood Count 10.3 X10*3/uL (4.8-10.8)
[2024-02-05 12:06] LABS: Anion Gap 16 (12-20); Blood Urea Nitrogen 7 mg/dL (9-16); Calcium 9.8 mg/dL (8.4-10.2); Carbon Dioxide 23 mmol/L (22-29); Chloride 101 mmol/L (96-108); Creatinine Clr Calc Pharmacy 127.9; Estimated Glomerular Filt Rate > 60; Glucose Random 150 mg/dL (60-115); Potassium 3.9 mmol/L (3.3-5.1); Sodium 136 mmol/L (135-145)
[2024-02-05 12:18] LABS: Mean Platelet Volume 10.3 fL (9.4-12.3); Platelet Count 206 X10*3/uL (160-400)
[2024-02-05 12:19] LABS: SLIDE REVIEW VERIFIED
--- NOTE | 2024-02-05 12:29 | P.HPHOSP_ITS ---
History of Present Illness Date of Service: 02/05/24 Attending physician on admission: Bertrand Caldwell Chief Complaint: SOB Pt is a 54-year-old female with a PMH significant for?COPD/asthma overlap syndrome not on home O2, fibromyalgia, osteoarthritis, hx of recurrent UTI, polysubstance use disorder, borderline personality disorder, bipolar disorder, and anxiety who presents to the ED with?increasing shortness of breath for the past 4 days. Also been experiencing occasional cough productive of thick, whitish sputum. Patient reports chills but no fever, as well as chest pain/tightness and abdominal pain associated with coughing. Has been using her inhalers multiple times a day to no effect. Patient presents today due to her worsening shortness of breath is not alleviated by her home medications. Of note, patient desatted to 83% O2 when oxygen was removed. She is well known to the facility with multiple hospital and psychiatric admissions. She continues to smoke half a pack of cigarettes a day. In the ED pt was afebrile but with elevated heart rate of 91, tachypneic up to 24, and hypoxic as low as 83% on RA. Labs were grossly unremarkable. No leukocytosis. Stable H&H. No electrolyte abnormalities. Renal function baseline. CXR with increased interstitial prominence possibly associated with asthma, bronchitis, reactive airway disease, or atypical infection. Pt was treated with Duonebs. Pt will be admitted to the hospital for treatment further evaluation of acute hypoxic respiratory failure in the setting of COPD/asthma exacerbation. Review of Systems 2 Review of Systems: SOB, WAYNE Productive cough Abd pain and chest tightness associated with coughing Chills No fever Denies N/V [facility] Medical History Bipolar I disorder with depression Overdose on Tylenol Suicide attempt Asthma COPD (chronic obstructive pulmonary disease) Chronic lung disease Neoplasm of parotid gland Depression 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 Drug abuse Bipolar I disorder Post traumatic stress disorder (PTSD) Tobacco use disorder FABIOLA (obstructive sleep apnea) Borderline personality disorder Intermittent explosive disorder Asthma exacerbation in COPD Herpes Tobacco use Bipolar disorder COPD (chronic obstructive pulmonary disease) Family History Mother COPD (chronic obstructive pulmonary disease) Surgical History History of ankle surgery History of back surgery Hx of cholecystectomy History of appendectomy Social History Household Members: None Household Members Other:: Longterm in [place] Housing: Apartment Housing Other:: Sleeps on the couch at [facility] house Do you presently have visiting nurse or other home services: No Unable to assess alcohol history related to: Unknown Alcohol intake: current Alcohol intake frequency: holidays/special occasions only Alcohol type: hard liquor Comment: 1;1 DUE TO O2 Patient Tobacco Use Status: Current everyday Tobacco user Tobacco use type: Cigarette Cigarette Packs Per Day: 0.25 Cigarettes Per Day: 5.0 Years Smoked: 20 Smoked in Last 30 Days: Yes e-Cigarette/Vaping Use: Never Used Second Hand Smoke Exposure: No Substance Use Type: Crack/Cocaine Advance Directives: Yes Advance Directives on File: Yes Advance Directives Date on File: 06/17/22 service: No Current occupational status: unemployed and disabled Sexual orientation: Straight/Heterosexual Meds Allergies Allergy/AdvReac Type Severity Reaction Status Date / Time aspirin Allergy Mild Anaphylaxis Verified 02/05/24 10:29 ampicillin Allergy Rash Verified 02/05/24 10:29 Penicillins Allergy Anaphylaxis Verified 02/05/24 10:29 latex AdvReac Rash Verified 02/05/24 10:29 Latex, Natural Rubber AdvReac Rash Verified 02/05/24 10:29 seafood AdvReac Anaphylaxis Verified 02/05/24 10:29 Sulfa (Sulfonamide AdvReac Hives Verified 02/05/24 10:29 Antibiotics) Home Medications ?Medication ?Instructions ?Recorded ?Confirmed ?Last Taken ?Type lithium carbonate 450 mg 450 mg PO TID 05/14/23 12/29/23 11/17/23 History tablet,extended release cyanocobalamin (vitamin B-12) 1,000 mcg PO DAILY 06/11/23 12/29/23 11/17/23 History 1,000 mcg tablet (Vitamin B-12) ipratropium 0.5 mg-albuterol 3 mg 3 ml inhalation RQ6H PRN Shortness 06/11/23 12/29/23 10/23/23 History (2.5 mg base)/3 mL nebulization Of Breath Or Wheezing soln gabapentin 400 mg capsule 400 mg PO TID 10/24/23 12/29/23 11/17/23 History cetirizine 10 mg tablet 10 mg PO DAILY PRN Allergy Symptoms 12/19/23 12/29/23 Unknown History melatonin 3 mg tablet 3 mg PO BEDTIME 12/19/23 12/29/23 Unknown History nicotine (polacrilex) 2 mg gum 2 mg buccal Q2H PRN Nicotine 12/19/23 12/29/23 Unknown History Cravings valacyclovir 500 mg tablet 500 mg PO DAILY 12/19/23 12/29/23 Unknown History nicotine 21 mg/24 hr daily 1 patch transdermal DAILY 12/29/23 12/29/23 Unknown History transdermal patch omeprazole 20 mg capsule,delayed 20 mg PO DAILY@0630 12/29/23 12/29/23 Unknown History release Physical Exam 2 Vital Signs and Narrative: Vital Signs: Last Vital Signs Temp 98.4 F 02/05/24 10:24 Pulse 82 02/05/24 10:38 Resp 18 02/05/24 10:38 BP 121/69 02/05/24 10:24 Pulse Ox 88 L 02/05/24 10:24 O2 Del Method Room Air 02/05/24 10:24 BMI result Body Mass Index 42.9 General: AOx3, no acute distress Resp: Diffuse bilateral wheezing CVS: S1, S2, RRR Chest: Anterior chest wall mildly tender to palpation GI: +BS, no distention, mild central tenderness Skin: Warm, dry Neuro: Cranial nerves II-XII grossly intact bilaterally. Motor grossly intact bilaterally Extremities: No edema Psych: Appropriate affect Results Labs 02/05/24 11:45 02/05/24 11:45 Labs: Laboratory Results - last 24 hr 02/05/24 11:45 MCV 93.6 MCH 30.7 MCHC 32.8 RDW 13.7 Plt Count 206 MPV 10.3 Immature Gran % (Auto) 0.7 H Neut % (Auto) 70.3 Lymph % (Auto) 19.7 L [place] % (Auto) 7.1 Eos % (Auto) 1.5 Baso % (Auto) 0.7 Lymph # (Auto) 2.0 [place] # (Auto) 0.7 Eos # (Auto) 0.2 Baso # (Auto) 0.1 Abs Immat Gran (auto) 0.07 H Absolute Neuts (auto) 7.3 Absolute Nucleated RBC 0.000 Nucleated RBC % (auto) 0.0 Smear Tech's Comments VERIFIED Anion Gap 16 Estim Creat Clear Calc 127.9 Estimated GFR > 60 Random Glucose 150 H Calcium 9.8 Assessment and Plan (1) Hypoxia: Status: Acute (2) Acute exacerbation of chronic obstructive pulmonary disease: Status: Acute Plan Pt is a 54-year-old female with a PMH significant for?COPD/asthma overlap syndrome not on home O2, fibromyalgia, osteoarthritis, hx of recurrent UTI, polysubstance use disorder, borderline personality disorder, bipolar disorder, and anxiety who presents to the ED with?increasing shortness of breath for the past 4 days. Pt will be admitted to the hospital for treatment further evaluation of acute hypoxic respiratory failure in the setting of COPD/asthma exacerbation. Acute hypoxic respiratory failure in the setting of asthma/COPD exacerbation Patient with increasing SOB x4 days, wheezing on exam, productive sputum, desatting to 83% on RA Will treat with Solu-Medrol, DuoNebs, guaifenesin. mag sulfate Patient does not meet SIRS criteria: tachycardia of 91 secondary to albuterol use, not sepsis Will cover with doxy, started 02/05/2024 Continue home inhalers Titrate supplemental O2 >92, wean as tolerated Monitor respiratory status GERD Continue PPI Nicotine dependence Continue home NRT Smoking cessation counseled Obesity class 3 Weight loss encouraged Mood disorder Continue home meds Full Code Attending:?Dr. Caldwell DVT Prophylaxis: Lovenox Pt will require a hospitalization of at least two nights for treatment of? with . Pt will require a hospitalization of at least two nights for treatment of?acute hypoxic respiratory failure in setting of asthma/COPD exacerbation with IV steroids, breathing treatments, and supplemental oxygen. Quality Stroke Does the patient have a stroke diagnosis?: No VTE Prior VTE?: No VTE Risk Level:: Medical - moderate - high VTE Device Contraindication: Treatment Not Indicated VTE Drug Contraindication: N/A - Med Ordered
[2024-02-05] MEDS: methylPREDNISolone Sod Succ 125 MG/2 ML VIAL IVPUSH (13:24)
--- NOTE | 2024-02-05 13:56 | PHA.MEDREC ---
Pharmacy Consult ? Medication Reconciliation Pharmacy has completed the medication reconciliation.
[2024-02-05] MEDS: Gabapentin 400 MG CAPSULE PO ×2 (14:30→20:56)
[2024-02-05] MEDS: Lithium Carbonate ER 450 MG TABLET.ER PO ×2 (14:32→22:40)
[2024-02-05] MEDS: Enoxaparin Sodium 40 MG/0.4 ML SYRINGE SUBCUT (14:33)
[2024-02-05] MEDS: Magnesium Sulfate/H2O 2 GM/50 ML PIGGYBACK IV (14:34)
[2024-02-05] MEDS: Albuterol/Iprat 2.5/0.5MG 3 ML AMPUL.NEB INHALE ×2 (14:49→19:46)
[2024-02-05] MEDS: Doxycycline Hyclate 100 MG in 0.9 % Sodium Chloride 250 ML 166.67 MG IV (17:00)
--- NOTE | 2024-02-05 19:04 | PC.NURSE ---
pt a&o x4, calm, and cooperative. 20G IV placed to LAC. pt medicated per dec. pt ambulates independently with rolling walker to bathroom. on 3L O2 via NC. asks for multiple cups of coffee/gingerale. pt resting quietly on stretcher in no apparent distress. rr even/unlabored. call castillo within reach. awaiting bed assignment. plan of care ongoing.
[2024-02-05] MEDS: guaiFENesin DM 200/20/10 ML 10 ML SYRUP PO (19:46)
--- NOTE | 2024-02-05 19:50 | PC.NURSE ---
this rn assumed care of pt. pt sitting up in stretcher, no acute distress noted. respiratory at bedside giving treatment. pt medicated per dec for cough.
[2024-02-05] MEDS: cloNIDine HCL 0.2 MG TABLET PO (20:56)
[2024-02-05] MEDS: rOPINIRole HCL 1 MG TABLET PO (20:57)
[2024-02-05] MEDS: OLANZapine 10 MG TABLET PO (20:58)
--- NOTE | 2024-02-05 21:46 | PC.NURSE ---
respiratory at bedside placing pt on CPAP for sleep, pt on 3L CPAP
[2024-02-05 22:31] LABS: Influenza A PCR NEGATIVE (Negative); Influenza B PCR NEGATIVE (Negative); Resp Syncy Virus RNA Qual PCR NEGATIVE (Negative); SARS COV2 PCR INHOUSE NEGATIVE (Negative)
--- NOTE | 2024-02-05 23:19 | PC.NURSE ---
pt removed CPAP, pt on 3L nasal cannula at this time.
--- NOTE | 2024-02-05 23:37 | MHC.EDTECH ---
This pct assumed care of patient at 2300 ,vitals taken ,Bed side commode was place in room RT in room hooking up capp ,patient Call castillo within reach .
[2024-02-06] VITALS (15 sets, daily range): BP systolic 107–156; BP diastolic 57–81; PULSE 61–98; RESP 17–24; TEMP 36.2–36.6; O2SAT 91–95
--- NOTE | 2024-02-06 | ECG_ITS ---
Test Reason : chest pain Blood Pressure : / mmHG Vent. Rate : 086 BPM Atrial Rate : 086 BPM P-R Int : 144 ms QRS Dur : 090 ms QT Int : 370 ms P-R-T Axes : 022 011 003 degrees QTc Int : 442 ms Normal sinus rhythm Nonspecific T wave abnormality Abnormal ECG When compared with ECG of 03-FEB-2024 12:48, No significant change was found Referred By: Bertrand Caldwell Electronically Signed By:Deangelo Gutierres
[2024-02-06] MEDS: 0.9 % Sodium Chloride Flush 3 ML SYRINGE IVFLUSH ×3 (00:28→19:50)
--- NOTE | 2024-02-06 00:30 | PC.NURSE ---
pt desat to 94% on 3L cpap, respiratory called to bedside.
[2024-02-06] MEDS: methylPREDNISolone Sod Succ 40 MG/ML VIAL IVPUSH ×2 (01:30→12:21)
[2024-02-06] MEDS: Doxycycline Hyclate 100 MG in 0.9 % Sodium Chloride 250 ML 166.67 MG IV (01:30)
[2024-02-06] MEDS: methylPREDNISolone Sod Succ 125 MG/2 ML VIAL 80 MG IVPUSH (01:37)
--- NOTE | 2024-02-06 01:39 | PC.NURSE ---
pt placed on 9L oxymax, called to bedside, pt given duoneb and solumedrol. pt sating 91% with treatment at this time.
[2024-02-06 01:47] LABS: ABG Base Excess 5.3 mmol/L; ABG HCO3 32 mmol/L (22-26); ABG pCO2 58 mmHg (32-45); ABG pH 7.35 (7.35-7.45); ABG pO2 67 mmHg (83-108)
--- NOTE | 2024-02-06 02:01 | PC.NURSE ---
respiratory at bedside, pt placed on CPAP 50% oxygen, pt sating 90-92%
[2024-02-06 03:02] LABS: ABG Refer to POC result
[2024-02-06] MEDS: Omeprazole 20 MG CAPSULE.DR PO (06:16)
[2024-02-06] MEDS: guaiFENesin DM 200/20/10 ML 10 ML SYRUP PO ×2 (07:13→20:27)
[2024-02-06] MEDS: Albuterol/Iprat 2.5/0.5MG 3 ML AMPUL.NEB INHALE ×4 (08:07→19:46)
[2024-02-06] MEDS: Tiotropium Bromide 2.5 mcg 1 PUFF/2.5 MCG MIST.INHAL 18 PUFF INHALE (08:08)
[2024-02-06] MEDS: valACYclovir HCL 500 MG TABLET PO (08:24)
[2024-02-06] MEDS: Lithium Carbonate ER 450 MG TABLET.ER PO ×2 (08:24→20:23)
[2024-02-06] MEDS: Ferrous Sulfate 324 MG TABLET.DR PO (08:24)
[2024-02-06] MEDS: Cyanocobalamin (Vitamin B-12) 1,000 MCG TABLET 1000 MCG PO (08:24)
[2024-02-06] MEDS: Gabapentin 400 MG CAPSULE PO ×2 (08:24→20:23)
[2024-02-06] MEDS: Nicotine 21 MG PATCH.TD24 TRANSDERMA (08:25)
[2024-02-06 09:05] LABS: Amphetamine Screen Urine Not Detected (Not Detect); Barbiturates, Urine Not Detected (Not Detect); Benzodiazepines Screen Urine Not Detected (Not Detect); Cannabinoid Screen Urine Not Detected (Not Detect); Cocaine Screen Urine Not Detected (Not Detect); Fentanyl, urine Not Detected (Not Detect); Opiate Screen Urine Not Detected (Not Detect); Phencyclidine Screen Urine Not Detected (Not Detect)
--- NOTE | 2024-02-06 09:30 | HO.PM.IMPN ---
Subjective Subjective Date of Service: 02/06/24 Interval History: wheezing improved still hypoxic coughing small amount of sputum afebrile Review of Systems Review of Systems: Yes all other systems are reviewed and are negative Physical Exam Vital Signs: Vital Signs: Last Vital Signs Temp 97.1 F 02/06/24 06:17 Pulse 85 02/06/24 08:12 Resp 18 02/06/24 08:12 BP 133/74 02/06/24 06:17 Pulse Ox 95 02/06/24 06:17 O2 Del Method Nasal Cannula 02/06/24 06:17 O2 Flow Rate 8 02/06/24 06:17 FiO2 50 02/06/24 02:12 BMI result Body Mass Index 42.9 Gen: in no acute distress HEENT: sclera anicteric, moist mucus membranes Neck: supple Lungs: bilateral expiratory wheezes Heart: regular rate and rhythm, no murmurs Abd: soft, non-tender, non-distended, obese Ext: no edema Skin: warm/well-perfused Neuro: alert and oriented x3, no focal findings Psych: appropriate affect Objective Data Active Medications Acetaminophen (Acetaminophen 325 Mg Tablet) 650 mg PO Q6H PRN PRN Reason: Pain, Mild (Pain Scale 1-3) Albuterol Sulfate (Albuterol Sulfate 90 Mcg 8 Gm Inhaler) 2 puff INHALE Q4H PRN PRN Reason: shortness of breath or wheezing Albuterol/Ipratropium (Albuterol/Iprat 2.5/0.5mg 3 Ml Ampul.Neb) 3 ml INHALE RQ4H WHILE AWAKE [facility] Last Admin: 02/06/24 08:07 Dose: 3 ml Documented By: ADELE Clonidine HCl (Clonidine Hcl 0.2 Mg Tablet) 0.2 mg PO BEDTIME [facility]; Protocol Last Admin: 02/05/24 20:56 Dose: 0.2 mg Documented By: HANNA Cyanocobalamin (Cyanocobalamin (Vitamin B-12) 1,000 Mcg Tablet) 1,000 mcg PO DAILY [facility] Last Admin: 02/06/24 08:24 Dose: 1,000 mcg Documented By: JACK Docusate Sodium (Docusate Sodium 100 Mg Capsule) 100 mg PO DAILY PRN PRN Reason: Constipation Enoxaparin Sodium (Enoxaparin Sodium 40 Mg/0.4 Ml Syringe) 40 mg SUBCUT Q24H [facility] Last Admin: 02/05/24 14:33 Dose: 40 mg Documented By: ELLIOTT Ferrous Sulfate (Ferrous Sulfate 324 Mg Tablet.) 324 mg PO DAILY [facility] Last Admin: 02/06/24 08:24 Dose: 324 mg Documented By: JACK Gabapentin (Gabapentin 400 Mg Capsule) 400 mg PO TID [facility] Last Admin: 02/06/24 08:24 Dose: 400 mg Documented By: JACK Guaifenesin/Dextromethorphan (Guaifenesin Dm 200/20/10 Ml 10 Ml Syrup) 10 ml PO Q6H PRN PRN Reason: Cough Last Admin: 02/06/24 07:13 Dose: 10 ml Documented By: JACK Doxycycline Hyclate 100 mg/ (Sodium Chloride) 250 mls @ 166.67 mls/hr IV Q12H [facility] Last Infusion: 02/06/24 03:09 Dose: Infused Documented By: ERON [place] Carbonate ([place] Carbonate Er 450 Mg Tablet.Er) 450 mg PO TID [facility] Last Admin: 02/06/24 08:24 Dose: 450 mg Documented By: JACK Loratadine (Loratadine 10 Mg Tablet) 10 mg PO DAILY PRN PRN Reason: Allergy Symptoms Melatonin (Melatonin 3 Mg Tablet) 6 mg PO BEDTIME PRN PRN Reason: Insomnia Methylprednisolone Sodium Succinate (Methylprednisolone Sod Succ 40 Mg/Ml Vial) 40 mg IVPUSH Q12H [facility] Last Admin: 02/06/24 01:30 Dose: 40 mg Documented By: ERON Nicotine (Nicotine 21 Mg Patch.Td24) 21 mg TRANSDERMA DAILY [facility] Last Admin: 02/06/24 08:25 Dose: 21 mg Documented By: JACK Nicotine Polacrilex (Nicotine Polacrilex 2 Mg Gum) 2 mg BUCCAL Q2H PRN PRN Reason: Nicotine Cravings Olanzapine (Olanzapine 10 Mg Tablet) 10 mg PO BEDTIME [facility] Last Admin: 02/05/24 20:58 Dose: 10 mg Documented By: HANNA Omeprazole (Omeprazole 20 Mg Capsule.) 20 mg PO DAILY@0630 [facility] Last Admin: 02/06/24 06:16 Dose: 20 mg Documented By: CAPRICE Ondansetron HCl (Ondansetron Hcl 4 Mg/2 Ml Vial) 4 mg IVPUSH Q8H PRN PRN Reason: Nausea and Vomiting Ropinirole HCl (Ropinirole Hcl 1 Mg Tablet) 1 mg PO BEDTIME [facility] Last Admin: 02/05/24 20:57 Dose: 1 mg Documented By: HANNA Sodium Chloride (0.9 % Sodium Chloride Flush 3 Ml Syringe) 3 ml IVFLUSH QSHIFT [facility] Last Admin: 02/06/24 07:14 Dose: 3 ml Documented By: JACK Tiotropium [place] (Tiotropium [place] 2.5 Mcg 1 Puff/2.5 Mcg Mist.Inhal) 18 puff INHALE RDAILY [facility] Last Admin: 02/06/24 08:08 Dose: 18 puff Documented By: ADELE Valacyclovir HCl (Valacyclovir Hcl 500 Mg Tablet) 500 mg PO DAILY [facility] Last Admin: 02/06/24 08:24 Dose: 500 mg Documented By: JACK Labs 02/05/24 11:45 02/05/24 11:45 Labs: Laboratory Results - last 24 hr 02/05/24 02/05/24 02/06/24 11:45 Unknown 01:38 MCV 93.6 MCH 30.7 MCHC 32.8 RDW 13.7 Plt Count 206 MPV 10.3 Immature Gran % (Auto) 0.7 H Neut % (Auto) 70.3 Lymph % (Auto) 19.7 L Bonner % (Auto) 7.1 Eos % (Auto) 1.5 Baso % (Auto) 0.7 Lymph # (Auto) 2.0 Bonner # (Auto) 0.7 Eos # (Auto) 0.2 Baso # (Auto) 0.1 Abs Immat Gran (auto) 0.07 H Absolute Neuts (auto) 7.3 Absolute Nucleated RBC 0.000 Nucleated RBC % (auto) 0.0 Smear Tech's Comments VERIFIED O2 Saturation 93.0 ABG pH at Pt Temp 7.35 ABG pCO2 at Pt Temp 58 H ABG pO2 at Pt Temp 67 L ABG HCO3 32 H ABG Base Excess (Actual) 5.3 Anion Gap 16 Estim Creat Clear Calc 127.9 Estimated GFR > 60 Random Glucose 150 H Calcium 9.8 Urine Opiates Screen Urine Fentanyl Screen Ur Barbiturates Screen Ur Phencyclidine Scrn Ur Amphetamines Screen U Benzodiazepines Scrn Urine Cocaine Screen U Marijuana (THC) Screen Influenza Type A (PCR) NEGATIVE Influenza Type B (PCR) NEGATIVE RSV RNA Qual (PCR) NEGATIVE SARS-CoV-2 RNA (RT-PCR) NEGATIVE 02/06/24 08:49 MCV MCH MCHC RDW Plt Count MPV Immature Gran % (Auto) Neut % (Auto) Lymph % (Auto) Bonner % (Auto) Eos % (Auto) Baso % (Auto) Lymph # (Auto) Bonner # (Auto) Eos # (Auto) Baso # (Auto) Abs Immat Gran (auto) Absolute Neuts (auto) Absolute Nucleated RBC Nucleated RBC % (auto) Smear Tech's Comments O2 Saturation ABG pH at Pt Temp ABG pCO2 at Pt Temp ABG pO2 at Pt Temp ABG HCO3 ABG Base Excess (Actual) Anion Gap Estim Creat Clear Calc Estimated GFR Random Glucose Calcium Urine Opiates Screen Not Detected Urine Fentanyl Screen Not Detected Ur Barbiturates Screen Not Detected Ur Phencyclidine Scrn Not Detected Ur Amphetamines Screen Not Detected U Benzodiazepines Scrn Not Detected Urine Cocaine Screen Not Detected U Marijuana (THC) Screen Not Detected Influenza Type A (PCR) Influenza Type B (PCR) RSV RNA Qual (PCR) SARS-CoV-2 RNA (RT-PCR) Assessment and Plan (1) Acute exacerbation of chronic obstructive pulmonary disease: Status: Acute Plan d2 54yo F with COPD/asthma overlap not on home O2, FM, OA, hx recurr UTI, polysubstance abuse disorder, borderline PD, bipolar disorder, anxiety p/w 4d increasing dyspnea/sputum production admitted for hypoxia due to COPD/asthma exac AHRF due to acute exac of COPD/asthma - doxy 02/04-, methylprednisolone 02/04-, nebs, home inhalers, wean O2 as reg bipolar disorder - clonidine, lithium, olanzapine, gabapentin tobacco abuse - NRT morbid obesity - diet/exercise counseling VTE ppx - LMWH dispo - PT eval In my clinical judgment, the patient requires continued inpatient hospitalization for the following reasons: hypoxia Total time managing care of this patient today: 35 minutes. Quality Stroke Does the patient have a stroke diagnosis?: No VTE Prior VTE?: No VTE Risk Level:: Medical - moderate - high VTE Device Contraindication: Treatment Not Indicated VTE Drug Contraindication: N/A - Med Ordered
[2024-02-06] MEDS: Doxycycline Monohydrate 100 MG CAPSULE PO ×2 (11:01→20:23)
[2024-02-06 12:21] LABS: D Dimer High Sensitivity 240 NG/ML
[2024-02-06] MEDS: Acetaminophen 325 MG TABLET 650 MG PO (12:21)
[2024-02-06] MEDS: Enoxaparin Sodium 40 MG/0.4 ML SYRINGE SUBCUT (12:22)
[2024-02-06 12:24] LABS: Troponin-I High Sensitivity < 2.7 ng/L (<3.5-17.0)
--- NOTE | 2024-02-06 12:42 | MHC.CM.PN ---
PT REPORTS SHE LIVES ALONE AND IS INDEPENDENT WITH SELF CARE SHE IS ACTIVE WITH [facility] FOR DAILY MED ADMINISTRATION SHE IS ALSO ACTIVE WITH [facility] FOR [facility] PT SAYS SHE WAS APPROVED FOR [facility] BUT THEY HAVE NOT STARTED YET PT USES A ROLLATOR TO AMBULATE HCP ON FILE AND VERIFIED PCP: KEVEN MARQUEZ DCP: [facility] PT WILL NEED SHUTTLE TRANSPORT
[2024-02-06 14:58] LABS: Troponin-I High Sensitivity < 2.7 ng/L (<3.5-17.0)
[2024-02-06] MEDS: iohexoL 350 MG/ML 100 ML INFUS..BTL IV (18:43)
--- NOTE | 2024-02-06 19:41 | PM.EVENT ---
Event Note Date of Service: 02/06/24 Event Note: Patient was noted to have right lower lobe segmental PE on CTA. Initiating therapeutic Lovenox and will place patient on cafeteria monitor. Obtaining troponin and BNP. Time Spent With Patient Time: Total time managing care of this patient today ____ minutes.
[2024-02-06] MEDS: OLANZapine 10 MG TABLET PO (20:23)
[2024-02-06] MEDS: cloNIDine HCL 0.2 MG TABLET PO (20:23)
[2024-02-06] MEDS: Enoxaparin Sodium 120 MG/0.8 ML SYRINGE SUBCUT (20:24)
[2024-02-06 20:35] LABS: B Type Natriuretic Peptide 11 pg/mL (<100)
[2024-02-06 20:38] LABS: Troponin-I High Sensitivity < 2.7 ng/L (<3.5-17.0)
[2024-02-06] MEDS: rOPINIRole HCL 1 MG TABLET PO (22:29)
[2024-02-07] VITALS (7 sets, daily range): BP systolic 113–140; BP diastolic 65–83; PULSE 71–92; RESP 14–23; TEMP 36.2–36.8; O2SAT 92–99
[2024-02-07] MEDS: methylPREDNISolone Sod Succ 40 MG/ML VIAL IVPUSH (01:33)
[2024-02-07 05:39] LABS: Venous Blood Gas Refer to POC result
[2024-02-07 05:40] LABS: VBG Base Excess 5.6 mmol/L; VBG HCO3 30 mmol/L (22-26); VBG pCO2 44 mmHg; VBG pH 7.44 (7.32-7.43); VBG pO2 76 mmHg
[2024-02-07] MEDS: Omeprazole 20 MG CAPSULE.DR PO (05:42)
[2024-02-07 06:01] LABS: Anion Gap 12 (12-20); Blood Urea Nitrogen 11 mg/dL (9-16); Calcium 10.5 mg/dL (8.4-10.2); Carbon Dioxide 28 mmol/L (22-29); Chloride 107 mmol/L (96-108); Creatinine Clr Calc Pharmacy 118.8; Estimated Glomerular Filt Rate > 60; Glucose Random 141 mg/dL (60-115); Potassium 3.8 mmol/L (3.3-5.1); Sodium 143 mmol/L (135-145)
--- NOTE | 2024-02-07 07:00 | CA_ITS ---
Transthoracic Echocardiogram Patient (Last, First, Middle): Bhavana Garza, Gender: Female Date of : 1970 Age: 54 Procedure Date: 02/07/2024 Procedure Type: Transthoracic Echocardiogram Location: S3E Height: 167.64 cm Weight: 116.58 kg BSA: 2.23 m2 Heart Rate: bpm BP: 113 / 65 mmHg Treating Machine Operator: Referring MD: Linda Chauhan MD Symptoms: Pulmonary Embolism Study Quality: Good ECG Rhythm: Sinus Conclusions: - Mildly increased left ventricular cavity size. There is moderately increased left ventricular wall thickness. The left ventricular systolic function is normal. The visually estimated ejection fraction is between 55-60%. - Mildly increased right ventricular cavity size. There is normal right ventricular systolic function. Findings Left Ventricle Mildly increased left ventricular cavity size. There is moderately increased left ventricular wall thickness. The left ventricular systolic function is normal. The visually estimated ejection fraction is between 55-60%. There is no evidence of regional wall motion abnormalities. Abnormal diastolic function is noted. Spectral Doppler is indicative of an impaired relaxation filling pattern. E/E prime ratio is between 8 and 15 consistent with indeterminate filling pressures. Right Ventricle Mildly increased right ventricular cavity size. There is normal right ventricular systolic function. Atria The left atrium is normal in size. Aortic Valve Normal aortic valve structure and function. There is no aortic valve stenosis. There is trace (trivial) aortic valve regurgitation. Mitral Valve The mitral valve appears normal. There is trace mitral valve regurgitation. There is no mitral valve stenosis. Pulmonic Valve The pulmonic valve is normal. There is no pulmonic valve regurgitation. Tricuspid Valve Normal tricuspid valve structure. There is trace tricuspid valve regurgitation. Normal right atrial pressure. There is no evidence of pulmonary hypertension. Great Vessels All visible segments of the aorta are normal in size. The visualized portions of the pulmonary artery and branches are normal. Venous The inferior vena cava is normal in size and collapses greater than 50% with inspiration. Pericardium/Pleural There is no evidence of pericardial effusion. Measurements 2D Linear Measurements IVSd: 1.20 0.6-0.9/0.6-1.0 cm LVIDd: 5.16 3.9-5.3/4.2-5.9 cm LVIDd Index: 2.31 2.4-3.2/2.2-3.1 cm/m2 LVIDs: 3.30 2.0-3.6 cm LVPWd: 1.22 0.7-1.1 cm Ao Root: 2.90 2.1-3.5 cm LA Diam: 4.20 2.7-3.8/3.0-4.0 cm LAIDs Index: 1.88 1.5-2.3 cm/m2 LV Mass: 310.06 67-162/88-224 g LV Mass Index: 139.04 43-95/49-115 g/m2 LVOT Diam: 2.20 3.0+(-)1.3 cm Mitral Valve MV Pk E: 0.72 MV PK A: 0.96 MV Decel Time: 183.00 E/A: 0.80 E'Lateral: 10.20 E'Medial: 5.87 E/E' Med: 12.30 E/E' Lat: 7.10 PHT: 54.00 MVA PHT: 4.07 Decel [place]: 3.95 Aortic Valve AoV Pk Cam: 1.74 AoV Mn Cam: 1.07 AoV VTI: 0.37 AoV Pk Grad: 12.00 Aov Mn Grad: 6.00 LEON Cont.VTI: 2.69 LVOT LVOT Pk Cam: 1.19 LVOT Mn Cam: 0.88 LVOT VTI: 0.26 LVOT Pk Grad: 6.00 LVOT Mn Grad: 3.00 LVOT Diam: 2.20 LVOT Area: 3.80 Diastolic Function MV Pk E: 0.72 MV Pk A: 0.96 E/A: 0.80 E'Medial: 5.87 E/E' Med: 12.30 E' Laterial: 10.20 E/E' Lat: 7.10 Right Ventricle TAPSE (mm): 28.00 TVS' Cam: 13.00 Tricuspid Valve TR Pk Cam: 2.17 TR Pk Grad: 19.00 RA Press: 3.00 RVSP: 22.00 Great Vessels Aorta Ao Root-2D: 2.90 2.0-3.7 cm Ao Asc: 3.20 2.1-3.4 cm Pulmonary Valve PV Pk Cam: 1.16 Peak PV Grad: 5.00 Updated in Other Vendor System with Status of Final Deangelo Gutierres MD electronically signed on 02/07/2024 12:54:36 PM with status of Final
[2024-02-07] MEDS: Tiotropium Bromide 2.5 mcg 1 PUFF/2.5 MCG MIST.INHAL 18 PUFF INHALE (08:03)
[2024-02-07] MEDS: Albuterol/Iprat 2.5/0.5MG 3 ML AMPUL.NEB INHALE ×4 (08:04→20:00)
[2024-02-07] MEDS: Enoxaparin Sodium 120 MG/0.8 ML SYRINGE SUBCUT (08:46)
[2024-02-07] MEDS: Nicotine 21 MG PATCH.TD24 TRANSDERMA (08:47)
[2024-02-07] MEDS: Cyanocobalamin (Vitamin B-12) 1,000 MCG TABLET 1000 MCG PO (08:47)
[2024-02-07] MEDS: Lithium Carbonate ER 450 MG TABLET.ER PO ×3 (08:47→20:44)
[2024-02-07] MEDS: Doxycycline Monohydrate 100 MG CAPSULE PO ×2 (08:47→20:45)
[2024-02-07] MEDS: 0.9 % Sodium Chloride Flush 3 ML SYRINGE IVFLUSH ×3 (08:48→20:46)
[2024-02-07] MEDS: Ferrous Sulfate 324 MG TABLET.DR PO (08:48)
[2024-02-07] MEDS: valACYclovir HCL 500 MG TABLET PO (08:48)
[2024-02-07] MEDS: Gabapentin 400 MG CAPSULE PO ×3 (08:48→20:44)
[2024-02-07] MEDS: guaiFENesin DM 200/20/10 ML 10 ML SYRUP PO (08:52)
--- NOTE | 2024-02-07 10:42 | HO.PM.IMPN ---
Subjective Subjective Date of Service: 02/07/24 Interval History: CTA positive for segmental PE hypoxia improved, just on 1L O2 at this point wheezing resolved no personal hx of clot. had parotid CA surgically excised Jul 2023. maternal grandmother had recurrent DVTs Review of Systems Review of Systems: Yes all other systems are reviewed and are negative Physical Exam Vital Signs: Vital Signs: Last Vital Signs Temp 97.8 F 02/07/24 07:50 Pulse 85 02/07/24 08:04 Resp 18 02/07/24 08:04 BP 127/74 02/07/24 07:50 Pulse Ox 92 02/07/24 07:50 O2 Del Method Nasal Cannula 02/07/24 07:50 O2 Flow Rate 2.0 02/07/24 07:50 FiO2 50 02/06/24 02:12 BMI result Body Mass Index 42.9 Gen: in no acute distress HEENT: sclera anicteric, moist mucus membranes Neck: supple Lungs: scattered exp wheezing, good air entry Heart: regular rate and rhythm, no murmurs Abd: soft, non-tender, non-distended, obese Ext: no edema Skin: warm/well-perfused Neuro: alert and oriented x3, no focal findings Psych: appropriate affect Objective Data Active Medications Acetaminophen (Acetaminophen 325 Mg Tablet) 650 mg PO Q6H PRN PRN Reason: Pain, Mild (Pain Scale 1-3) Last Admin: 02/06/24 12:21 Dose: 650 mg Documented By: JACK Albuterol Sulfate (Albuterol Sulfate 90 Mcg 8 Gm Inhaler) 2 puff INHALE Q4H PRN PRN Reason: shortness of breath or wheezing Albuterol/Ipratropium (Albuterol/Iprat 2.5/0.5mg 3 Ml Ampul.Neb) 3 ml INHALE RQ4H [facility] Last Admin: 02/07/24 08:04 Dose: 3 ml Documented By: FABIANO Apixaban (Apixaban 5 Mg Tablet) 10 mg PO BID [facility] Stop: 02/14/24 09:01 Clonidine HCl (Clonidine Hcl 0.2 Mg Tablet) 0.2 mg PO BEDTIME [facility]; Protocol Last Admin: 02/06/24 20:23 Dose: 0.2 mg Documented By: LAMBERTO Cyanocobalamin (Cyanocobalamin (Vitamin B-12) 1,000 Mcg Tablet) 1,000 mcg PO DAILY [facility] Last Admin: 02/07/24 08:47 Dose: 1,000 mcg Documented By: NIALL Docusate Sodium (Docusate Sodium 100 Mg Capsule) 100 mg PO DAILY PRN PRN Reason: Constipation Doxycycline Monohydrate (Doxycycline Monohydrate 100 Mg Capsule) 100 mg PO BID [facility] Last Admin: 02/07/24 08:47 Dose: 100 mg Documented By: NIALL Ferrous Sulfate (Ferrous Sulfate 324 Mg Tablet.) 324 mg PO DAILY [facility] Last Admin: 02/07/24 08:48 Dose: 324 mg Documented By: NIALL Gabapentin (Gabapentin 400 Mg Capsule) 400 mg PO TID [facility] Last Admin: 02/07/24 08:48 Dose: 400 mg Documented By: NIALL Guaifenesin/Dextromethorphan (Guaifenesin Dm 200/20/10 Ml 10 Ml Syrup) 10 ml PO Q6H PRN PRN Reason: Cough Last Admin: 02/07/24 08:52 Dose: 10 ml Documented By: NIALL [place] Carbonate ([place] Carbonate Er 450 Mg Tablet.Er) 450 mg PO TID [facility] Last Admin: 02/07/24 08:47 Dose: 450 mg Documented By: NIALL Loratadine (Loratadine 10 Mg Tablet) 10 mg PO DAILY PRN PRN Reason: Allergy Symptoms Melatonin (Melatonin 3 Mg Tablet) 6 mg PO BEDTIME PRN PRN Reason: Insomnia Methylprednisolone Sodium Succinate (Methylprednisolone Sod Succ 40 Mg/Ml Vial) 40 mg IVPUSH Q12H [facility] Last Admin: 02/07/24 01:33 Dose: 40 mg Documented By: LAMBERTO Nicotine (Nicotine 21 Mg Patch.Td24) 21 mg TRANSDERMA DAILY [facility] Last Admin: 02/07/24 08:47 Dose: 21 mg Documented By: NIALL Nicotine Polacrilex (Nicotine Polacrilex 2 Mg Gum) 2 mg BUCCAL Q2H PRN PRN Reason: Nicotine Cravings Olanzapine (Olanzapine 10 Mg Tablet) 10 mg PO BEDTIME [facility] Last Admin: 02/06/24 20:23 Dose: 10 mg Documented By: LAMBERTO Omeprazole (Omeprazole 20 Mg Capsule.) 20 mg PO DAILY@0630 [facility] Last Admin: 02/07/24 05:42 Dose: 20 mg Documented By: LAMBERTO Ondansetron HCl (Ondansetron Hcl 4 Mg/2 Ml Vial) 4 mg IVPUSH Q8H PRN PRN Reason: Nausea and Vomiting Ropinirole HCl (Ropinirole Hcl 1 Mg Tablet) 1 mg PO BEDTIME [facility] Last Admin: 02/06/24 22:29 Dose: 1 mg Documented By: LAMBERTO Sodium Chloride (0.9 % Sodium Chloride Flush 3 Ml Syringe) 3 ml IVFLUSH QSHIFT [facility] Last Admin: 02/07/24 08:48 Dose: 3 ml Documented By: NIALL Tiotropium [place] (Tiotropium [place] 2.5 Mcg 1 Puff/2.5 Mcg Mist.Inhal) 18 puff INHALE RDAILY [facility] Last Admin: 02/07/24 08:03 Dose: 18 puff Documented By: FABIANO Valacyclovir HCl (Valacyclovir Hcl 500 Mg Tablet) 500 mg PO DAILY [facility] Last Admin: 02/07/24 08:48 Dose: 500 mg Documented By: NIALL Labs 02/05/24 11:45 02/07/24 05:28 Labs: Laboratory Results - last 24 hr 02/06/24 02/06/24 02/06/24 11:55 14:20 19:56 Hold Purple Top D-Dimer High Sensitivty 240 VBG pH VBG pCO2 VBG pO2 VBG HCO3 VBG O2 Saturation VBG Base Excess Anion Gap Estim Creat Clear Calc Estimated GFR Random Glucose Calcium Troponin I High Sens < 2.7 < 2.7 < 2.7 B-Natriuretic Peptide 11 02/07/24 02/07/24 05:28 05:33 Hold Purple Top SEE NOTE D-Dimer High Sensitivty VBG pH 7.44 H VBG pCO2 44 VBG pO2 76 VBG HCO3 30 H VBG O2 Saturation 97.0 VBG Base Excess 5.6 Anion Gap 12 Estim Creat Clear Calc 118.8 Estimated GFR > 60 Random Glucose 141 H Calcium 10.5 H D Troponin I High Sens B-Natriuretic Peptide Impressions Chest CTA 02/06/24 18:43 IMPRESSION: 1. Right lower lobe segmental pulmonary embolus. 2. Tree-in-bud opacities in the lingula may be infectious/inflammatory in etiology. VTE: positive. Assessment and Plan (1) Acute exacerbation of chronic obstructive pulmonary disease: Status: Acute Plan d3 54yo F with COPD/asthma overlap not on home O2, FM, OA, hx recurr UTI, polysubstance abuse disorder, borderline PD, bipolar disorder, anxiety p/w 4d increasing dyspnea/sputum production admitted for hypoxia due to COPD/asthma exac found to have acute PE acute PE - started on enoxaparin; will transition to apixaban. Hematology consult re duration/thrombophilia workup [unprovoked PE?]. acute exac of COPD/asthma - doxy 02/04-, methylprednisolone 02/04-02/06, prednisone 02/07-, nebs, home inhalers acute hypoxic respiratory failure - supplemental O2, wean as tolerated bipolar disorder - clonidine, lithium, olanzapine, gabapentin tobacco abuse - NRT morbid obesity - diet/exercise counseling VTE ppx - LMWH dispo - home with [facility] likely tomorrow In my clinical judgment, the patient requires continued inpatient hospitalization for the following reasons: hypoxia Total time managing care of this patient today: 45 minutes. Quality Stroke Does the patient have a stroke diagnosis?: No VTE Prior VTE?: No VTE Risk Level:: Medical - moderate - high VTE Device Contraindication: Treatment Not Indicated VTE Drug Contraindication: N/A - Med Ordered
--- NOTE | 2024-02-07 11:10 | PM.HEMONCCN ---
Subjective - Subjective Chief complaint: Shortness of breath Patient: new to practice Consult date: 02/08/24 Primary Care Provider: Mike Malone MD HPI - Consult Narrative Reason for consult: Pulmonary embolism Narrative: hBavana Garza is a 54 year old female admitted for shortness of breath and found to have exacerbation of COPD as well as pulmonary embolism. Patient was experiencing increasing shortness of breath as well as cough productive of thick whitish sputum for about a week before presentation. She did not have fever but reported chills as well as chest tightness. She has known history of COPD and asthma. She smokes half pack of cigarettes a day. Initial workup in the ED revealed increased interstitial prominence, probable atypical infection, reactive airway disease was diagnosed. She is admitted for acute hypoxic respiratory failure in the setting of COPD/asthma. Because of persistent hypoxemia she underwent CT angiogram on 02/06/2024 which revealed right lower lobe segmental pulmonary embolus. No suspicious lung findings or adenopathy, no evidence of right heart strain. She gives no prior history of thromboembolism but her maternal grandmother had recurrent DVTs. There is no known familial thrombophilia. She has not had any recent surgery, trauma or immobilization. Of note, she had left parotidectomy for cancer in July 2023 at [facility]. She underwent adjuvant radiation therapy and she is being monitored at [facility]. No evidence of disease recurrence thus far. Review of Systems - Constitutional Reports as per HPI, Reports fatigue, Reports malaise - Cardiovascular Reports no additional cardiovascular complaints - Respiratory Reports no additional respiratory complaints Oncology Screenings - ECOG Performance Status ECOG Performance Status: 1 [facility] Medical History: Medical History (Last Reviewed 02/05/24 @ 13:23 by LASHONDA Nguyen) Asthma Asthma exacerbation in COPD Asthma-COPD overlap syndrome Bipolar disorder Bipolar I disorder Bipolar I disorder with depression Borderline personality disorder Chronic lung disease COPD (chronic obstructive pulmonary disease) COPD (chronic obstructive pulmonary disease) Depression Drug abuse Herpes Intermittent explosive disorder 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 FABIOLA (obstructive sleep apnea) Overdose on Tylenol Post traumatic stress disorder (PTSD) Suicide attempt Tobacco use Tobacco use disorder Family History: Family History (Last Reviewed 02/05/24 @ 13:23 by LASHONDA Nguyen) Mother COPD (chronic obstructive pulmonary disease) Surgical History: Surgical History (Last Reviewed 02/05/24 @ 13:23 by LASHONDA Nguyen) History of ankle surgery History of appendectomy History of back surgery Hx of cholecystectomy Social History: Social History (Last Reviewed 02/05/24 @ 13:23 by LASHONDA Nguyen) Living Situation History: Household Members: None Household Members Other:: [facility] in [place] Housing: Apartment Housing Other:: Sleeps on the couch at [facility] house Do you presently have visiting nurse or other home services: No Alcohol History: Unable to assess alcohol history related to: Unknown Alcohol History Details: 1. How often do you have a drink containing alcohol?: a. Never 3. How often do you have six or more drinks on one occasion?: a. Never AUDIT-C Alcohol total score: 0 Currently Displaying Signs/Symptoms of Alcohol Withdrawal: No Tobacco History: Patient Tobacco Use Status: Current everyday Tobacco Tobacco use type: Cigarette Cigarette Packs Per Day: 0.25 Years Smoked: 20 Smoked in Last 30 Days: Yes Smoke Quit Date: 12/28/23 e-Cigarette/Vaping Use: Never Used Patient Interested in Nicotine Replacement: Yes Second Hand Smoke Exposure: No Substance Use History: Use of substances other than those prescribed or required for medical reasons: No Substance Use Type: Crack/Cocaine Currently Displaying Signs/Symptoms of Drug Intoxication Withdrawal: No Domestic Abuse History: Have you been hit, kicked, punched, or otherwise hurt by someone within the past year? If so, by whom?: No Do you feel safe in your current relationship?: No Current Relationship Is there a partner from a previous relationship who is making you feel unsafe now?: No Are you made to feel afraid or neglected: No Advance Directives: Advance Directives: Yes Advance Directives on File: Yes Advance Directives Date on File: 06/17/22 Homicidal Assessment: Do you have thoughts of harming others: None Do you have a plan to hurt others: No Plan Nutrition Assessment: Recently lost weight without trying: No Eating poorly because of decreased appetite: No Nutrition Risks: No Nutritional Risk Patient : No : No Poor oral hygiene: No Occupation Assessmet: service: No Current occupational status: unemployed Current occupational status: disabled Sex/Gender Assessment: Sexual orientation: Straight/Heterosexual Home Medications and Allergies Current Medications: Current Medications Acetaminophen (Acetaminophen 325 Mg Tablet) 650 mg PO Q6H PRN PRN Reason: Pain, Mild (Pain Scale 1-3) Last Admin: 02/06/24 12:21 Dose: 650 mg Albuterol Sulfate (Albuterol Sulfate 90 Mcg 8 Gm Inhaler) 2 puff INHALE Q4H PRN PRN Reason: shortness of breath or wheezing Albuterol/Ipratropium (Albuterol/Iprat 2.5/0.5mg 3 Ml Ampul.Neb) 3 ml INHALE RQ4H WHILE AWAKE [facility] Last Admin: 02/07/24 08:04 Dose: 3 ml Apixaban (Apixaban 5 Mg Tablet) 10 mg PO BID [facility] Stop: 02/14/24 09:01 Clonidine HCl (Clonidine Hcl 0.2 Mg Tablet) 0.2 mg PO BEDTIME [facility]; Protocol Last Admin: 02/06/24 20:23 Dose: 0.2 mg Cyanocobalamin (Cyanocobalamin (Vitamin B-12) 1,000 Mcg Tablet) 1,000 mcg PO DAILY [facility] Last Admin: 02/07/24 08:47 Dose: 1,000 mcg Docusate Sodium (Docusate Sodium 100 Mg Capsule) 100 mg PO DAILY PRN PRN Reason: Constipation Doxycycline Monohydrate (Doxycycline Monohydrate 100 Mg Capsule) 100 mg PO BID [facility] Last Admin: 02/07/24 08:47 Dose: 100 mg Ferrous Sulfate (Ferrous Sulfate 324 Mg Tablet.Dr) 324 mg PO DAILY [facility] Last Admin: 02/07/24 08:48 Dose: 324 mg Gabapentin (Gabapentin 400 Mg Capsule) 400 mg PO TID [facility] Last Admin: 02/07/24 08:48 Dose: 400 mg Guaifenesin/Dextromethorphan (Guaifenesin Dm 200/20/10 Ml 10 Ml Syrup) 10 ml PO Q6H PRN PRN Reason: Cough Last Admin: 02/07/24 08:52 Dose: 10 ml [place] Carbonate ([place] Carbonate Er 450 Mg Tablet.Er) 450 mg PO TID [facility] Last Admin: 02/07/24 08:47 Dose: 450 mg Loratadine (Loratadine 10 Mg Tablet) 10 mg PO DAILY PRN PRN Reason: Allergy Symptoms Melatonin (Melatonin 3 Mg Tablet) 6 mg PO BEDTIME PRN PRN Reason: Insomnia Nicotine (Nicotine 21 Mg Patch.Td24) 21 mg TRANSDERMA DAILY [facility] Last Admin: 02/07/24 08:47 Dose: 21 mg Nicotine Polacrilex (Nicotine Polacrilex 2 Mg Gum) 2 mg BUCCAL Q2H PRN PRN Reason: Nicotine Cravings Olanzapine (Olanzapine 10 Mg Tablet) 10 mg PO BEDTIME [facility] Last Admin: 02/06/24 20:23 Dose: 10 mg Omeprazole (Omeprazole 20 Mg Capsule.Dr) 20 mg PO DAILY@0630 [facility] Last Admin: 02/07/24 05:42 Dose: 20 mg Ondansetron HCl (Ondansetron Hcl 4 Mg/2 Ml Vial) 4 mg IVPUSH Q8H PRN PRN Reason: Nausea and Vomiting Prednisone (Prednisone 20 Mg Tablet) 40 mg PO DAILY [facility] Ropinirole HCl (Ropinirole Hcl 1 Mg Tablet) 1 mg PO BEDTIME [facility] Last Admin: 02/06/24 22:29 Dose: 1 mg Sodium Chloride (0.9 % Sodium Chloride Flush 3 Ml Syringe) 3 ml IVFLUSH QSHIFT [facility] Last Admin: 02/07/24 08:48 Dose: 3 ml Tiotropium Griffin (Tiotropium [place] 2.5 Mcg 1 Puff/2.5 Mcg Mist.Inhal) 18 puff INHALE RDAILY [facility] Last Admin: 02/07/24 08:03 Dose: 18 puff Valacyclovir HCl (Valacyclovir Hcl 500 Mg Tablet) 500 mg PO DAILY [facility] Last Admin: 02/07/24 08:48 Dose: 500 mg Home Medications ?Medication ?Instructions ?Recorded ?Confirmed ?Type lithium carbonate 450 mg 450 mg PO TID 05/14/23 02/05/24 History tablet,extended release cyanocobalamin (vitamin B-12) 1,000 mcg PO DAILY 06/11/23 02/05/24 History 1,000 mcg tablet (Vitamin B-12) ipratropium 0.5 mg-albuterol 3 mg 3 ml inhalation RQ6H PRN Shortness 06/11/23 02/05/24 History (2.5 mg base)/3 mL nebulization Of Breath Or Wheezing soln gabapentin 400 mg capsule 400 mg PO TID 10/24/23 02/05/24 History cetirizine 10 mg tablet 10 mg PO DAILY PRN Allergy Symptoms 12/19/23 02/05/24 History melatonin 3 mg tablet 3 mg PO BEDTIME 12/19/23 02/05/24 History nicotine (polacrilex) 2 mg gum 2 mg buccal Q2H PRN Nicotine 12/19/23 02/05/24 History Cravings valacyclovir 500 mg tablet 500 mg PO DAILY 12/19/23 02/05/24 History nicotine 21 mg/24 hr daily 1 patch transdermal DAILY 12/29/23 02/05/24 History transdermal patch omeprazole 20 mg capsule,delayed 20 mg PO DAILY@0630 12/29/23 02/05/24 History release Allergies Allergy/AdvReac Type Severity Reaction Status Date / Time aspirin Allergy Mild Anaphylaxis Verified 02/05/24 10:29 ampicillin Allergy Rash Verified 02/05/24 10:29 Penicillins Allergy Anaphylaxis Verified 02/05/24 10:29 latex AdvReac Rash Verified 02/05/24 10:29 Latex, Natural Rubber AdvReac Rash Verified 02/05/24 10:29 seafood AdvReac Anaphylaxis Verified 02/05/24 10:29 Sulfa (Sulfonamide AdvReac Hives Verified 02/05/24 10:29 Antibiotics) Physical Exam Vital signs: Vital Signs Temp 97.8 F 02/07/24 07:50 Pulse 85 02/07/24 08:04 Resp 18 02/07/24 08:04 BP 127/74 02/07/24 07:50 Pulse Ox 92 02/07/24 07:50 O2 Del Method Nasal Cannula 02/07/24 07:50 O2 Flow Rate 2.0 02/07/24 07:50 FiO2 50 02/06/24 02:12 Intake & Output 02/06/24 02/07/24 02/07/24 18:59 06:59 18:59 Intake Total 480 / 2080 1599 / 2080 Balance 480 / 0 1599 / 2079 Intake: Intake, Oral Amount 480 / 0 1599 / 2079 Other: Breakfast % Eaten 100% Lunch % Eaten 100% Dinner % Eaten 100% Number of Unmeasured Voids 2 Urine Bathroom Urine Color Yellow Last Bowel Movement 02/03/24 Weight 117 kg - Constitutional Present: no acute distress, obese - Routine HEENT Exam Eye: Present: EOMI, PERRL - Routine Neck Exam Present: supple. Absent: lymphadenopathy - Routine Respiratory Exam Present: prolonged expiratory phase, wheezes. Absent: accessory muscle use - Routine Cardiovascular Exam Cardiovascular: Present: RRR, S1, S2 - Routine Extremities Exam Absent: pedal edema - Routine Skin Exam Present: intact. Absent: cyanosis Hem/Onc Consult Result - Labs CBC & Chem 7: 02/05/24 11:45 02/07/24 05:28 Labs: BMP 02/07/24 05:28 Sodium 143 Potassium 3.8 Chloride 107 Carbon Dioxide 28 BUN 11 Creatinine 0.70 Calcium 10.5 H D Assessment and Plan Patient Active problem list reviewed?: Yes (1) Pulmonary embolism Status: Acute Assessment and plan: 1. This is a 54-year-old woman with history of COPD/asthma, left parotid cancer, status post excision in 2022 and adjuvant radiation therapy presenting with pulmonary embolism. CT angiogram performed on 02/06/2024 shows right lower lobe segmental pulmonary embolus. She is also being treated for atypical pneumonia and COPD exacerbation. She is a chronic smoker and is obese. There is family history of thromboembolism. She was recently treated for cancer. Given all of the above, recommend long-term anticoagulation for this unprovoked pulmonary embolism. She was advised about smoking cessation. We discussed pros and cons of long-term anticoagulation including increased risk of bleeding. No role of thrombophilia testing at this time. I thank you for this referral. - Time Spent With Patient Time Spent with Patient (in minutes): 15
[2024-02-07] MEDS: oxyCODONE HCl Immed Release 5 MG TABLET PO ×2 (13:27→19:13)
[2024-02-07] MEDS: rOPINIRole HCL 1 MG TABLET PO (20:44)
[2024-02-07] MEDS: cloNIDine HCL 0.2 MG TABLET PO (20:45)
[2024-02-07] MEDS: OLANZapine 10 MG TABLET PO (20:45)
[2024-02-07] MEDS: Apixaban 5 MG TABLET 10 MG PO (20:45)
[2024-02-08 03:04] VITALS: BP 106/58; PULSE 68; RESP 18; TEMP 36.3; O2SAT 95
[2024-02-08] MEDS: guaiFENesin DM 200/20/10 ML 10 ML SYRUP PO (06:58)
[2024-02-08] MEDS: Omeprazole 20 MG CAPSULE.DR PO (06:58)
--- NOTE | 2024-02-08 07:30 | ECG_ITS ---
Test Reason : chest pain Blood Pressure : / mmHG Vent. Rate : 077 BPM Atrial Rate : 077 BPM P-R Int : 134 ms QRS Dur : 086 ms QT Int : 360 ms P-R-T Axes : 015 030 016 degrees QTc Int : 407 ms Normal sinus rhythm Nonspecific T wave abnormality Abnormal ECG When compared with ECG of 06-FEB-2024 11:37, No significant change was found Referred By: Bertrand Caldwell Electronically Signed By:VAIBHAV KILLIAN MD
[2024-02-08] MEDS: Tiotropium Bromide 2.5 mcg 1 PUFF/2.5 MCG MIST.INHAL 18 PUFF INHALE (07:37)
[2024-02-08 07:39] VITALS: PULSE 68; RESP 18; O2SAT 90
[2024-02-08] MEDS: Albuterol/Iprat 2.5/0.5MG 3 ML AMPUL.NEB INHALE (07:39)
[2024-02-08 07:45] VITALS: BP 112/67; PULSE 76; RESP 17; TEMP 36.3; O2SAT 91
[2024-02-08] MEDS: predniSONE 20 MG TABLET 40 MG PO (08:10)
[2024-02-08] MEDS: Apixaban 5 MG TABLET 10 MG PO (08:10)
[2024-02-08] MEDS: Acetaminophen 325 MG TABLET 650 MG PO (08:10)
[2024-02-08] MEDS: valACYclovir HCL 500 MG TABLET PO (08:10)
[2024-02-08] MEDS: Nicotine 21 MG PATCH.TD24 TRANSDERMA (08:10)
[2024-02-08] MEDS: Lithium Carbonate ER 450 MG TABLET.ER PO (08:11)
[2024-02-08] MEDS: Cyanocobalamin (Vitamin B-12) 1,000 MCG TABLET 1000 MCG PO (08:11)
[2024-02-08] MEDS: Gabapentin 400 MG CAPSULE PO (08:12)
[2024-02-08] MEDS: Doxycycline Monohydrate 100 MG CAPSULE PO (08:12)
[2024-02-08] MEDS: Ferrous Sulfate 324 MG TABLET.DR PO (08:12)
[2024-02-08] MEDS: 0.9 % Sodium Chloride Flush 3 ML SYRINGE IVFLUSH (08:12)
--- NOTE | 2024-02-08 11:26 | P.DS_ITS ---
DS: Providers Provider Date of Service: 02/08/24 Date of admission: 02/05/24 12:57 Date of discharge: 02/08/24 Primary care physician: Mike Malone MD Consults: 02/07/24 09:51 Consult to Hematology / Oncology Routine Consulting Provider: [facility] Reason for consultation: PE ?unprovoked. Hx parotid CA excised Jul 2023 DS: Diagnosis Discharge Diagnosis (1) Pulmonary embolism: Status: Acute (2) Asthma exacerbation in COPD: Status: Acute (3) Morbid obesity: Status: Acute DS: Summary Hospital Course Hospital Course: From the history and physical by the admitting hospitalist, LASHONDA Cat, 02/05/24: Pt is a 54-year-old female with a PMH significant for COPD/asthma overlap syndrome not on home O2, fibromyalgia, osteoarthritis, hx of recurrent UTI, polysubstance use disorder, borderline personality disorder, bipolar disorder, and anxiety who presents to the ED with increasing shortness of breath for the past 4 days. Also been experiencing occasional cough productive of thick, whitish sputum. Patient reports chills but no fever, as well as chest pain/tightness and abdominal pain associated with coughing. Has been using her inhalers multiple times a day to no effect. Patient presents today due to her worsening shortness of breath is not alleviated by her home medications. Of note, patient desatted to 83% O2 when oxygen was removed. She is well known to the facility with multiple hospital and psychiatric admissions. She continues to smoke half a pack of cigarettes a day. In the ED pt was afebrile but with elevated heart rate of 91, tachypneic up to 24, and hypoxic as low as 83% on RA. Labs were grossly unremarkable. No leukocytosis. Stable H&H. No electrolyte abnormalities. Renal function baseline. CXR with increased interstitial prominence possibly associated with asthma, bronchitis, reactive airway disease, or atypical infection. Pt was treated with Duonebs. Pt will be admitted to the hospital for treatment further evaluation of acute hypoxic respiratory failure in the setting of COPD/asthma exacerbation. 54yo F with COPD/asthma overlap not on home O2, FM, OA, hx recurrent UTI, hx parotid cancer s/p excision + adjuvant radiation, polysubstance abuse disorder, borderline PD, bipolar disorder, and anxiety who presented with 4 days of increasing dyspnea/sputum production and was admitted for hypoxia due to COPD/asthma exacerbation. She was treated with doxycycline and methylprednisolone for 3 days with improvement. Due to hypoxia, D-dimer was drawn, which was slightly elevated, prompting a CT angio of the chest, which showed right lower lobe segmental pulmonary embolus. She was started on enoxaparin injections, then transitioned to oral apixaban. Hematology was consulted and recomended lifelong anticoagulation. Risk factors for PE in her include obesity, smoking, family history [maternal grandmother] of recurrent DVTs, and parotid cancer. She was weaned off of oxygen. She was discharged home with resumption of VNA services. Time Attestation Discharge Coordination Time (in mins): 35 Quality: Safe Use of Opioids Does Pt have an Active Cancer Diagnosis on the Problem List?: No Quality: Stroke Does the patient have a stroke diagnosis?: No Physical Exam Vital Signs: Vital Signs: Last Vital Signs Temp 97.3 F 02/08/24 07:45 Pulse 76 02/08/24 07:45 Resp 17 02/08/24 07:45 BP 112/67 02/08/24 07:45 Pulse Ox 91 L 02/08/24 07:45 O2 Del Method Room Air 02/08/24 07:45 O2 Flow Rate 2.0 02/07/24 07:50 FiO2 50 02/06/24 02:12 BMI result Body Mass Index 42.9 Gen: in no acute distress HEENT: sclera anicteric, moist mucus membranes Neck: supple Lungs: clear to auscultation bilaterally Heart: regular rate and rhythm, no murmurs Abd: soft, non-tender, non-distended, obese Ext: no edema Skin: warm/well-perfused Neuro: alert and oriented x3, no focal findings Psych: appropriate affect DS: Data Data Completed and Pending Completed studies during hospitalization [Text1]: Laboratory Results WBC 10.3 X10*3/uL (4.8-10.8) 02/05/24 11:45 RBC 5.15 X10*6/uL (4.20-5.50) 02/05/24 11:45 Hgb 15.8 g/dl (12.0-16.0) 02/05/24 11:45 Hct 48.2 % (37.0-47.0) H 02/05/24 11:45 MCV 93.6 fL (80.0-98.0) 02/05/24 11:45 MCH 30.7 pg (27.0-33.0) 02/05/24 11:45 MCHC 32.8 g/dl (31.0-35.0) 02/05/24 11:45 RDW 13.7 % (11.0-16.0) 02/05/24 11:45 Plt Count 206 X10*3/uL (160-400) 02/05/24 11:45 MPV 10.3 fL (9.4-12.3) 02/05/24 11:45 Immature Gran % (Auto) 0.7 % (0.0-0.4) H 02/05/24 11:45 Neut % (Auto) 70.3 % (45-73) 02/05/24 11:45 Lymph % (Auto) 19.7 % (20-40) L 02/05/24 11:45 [place] % (Auto) 7.1 % (2-11) 02/05/24 11:45 Eos % (Auto) 1.5 % (0-4) 02/05/24 11:45 Baso % (Auto) 0.7 % (0-2) 02/05/24 11:45 Lymph # (Auto) 2.0 X10*3/uL (1.2-4.9) 02/05/24 11:45 [place] # (Auto) 0.7 X10*3/uL (0.1-1.2) 02/05/24 11:45 Eos # (Auto) 0.2 X10*3/uL (0.0-0.4) 02/05/24 11:45 Baso # (Auto) 0.1 X10*3/uL (0.0-0.2) 02/05/24 11:45 Abs Immat Gran (auto) 0.07 X10*3/uL (0.00-0.03) H 02/05/24 11:45 Absolute Neuts (auto) 7.3 x10*3/uL (2.0-8.3) 02/05/24 11:45 Absolute Nucleated RBC 0.000 X10*3/uL (0.0-0.012) 02/05/24 11:45 Nucleated RBC % (auto) 0.0 /100WBC (0.0-0.2) 02/05/24 11:45 Smear Tech's Comments VERIFIED 02/05/24 11:45 Hold Purple Top SEE NOTE 02/07/24 05:28 D-Dimer High Sensitivty 240 NG/ML 02/06/24 11:55 O2 Saturation 93.0 % 02/06/24 01:38 ABG pH at Pt Temp 7.35 (7.35-7.45) 02/06/24 01:38 ABG pCO2 at Pt Temp 58 mmHg (32-45) H 02/06/24 01:38 ABG pO2 at Pt Temp 67 mmHg (83-108) L 02/06/24 01:38 ABG HCO3 32 mmol/L (22-26) H 02/06/24 01:38 ABG Base Excess (Actual) 5.3 mmol/L 02/06/24 01:38 VBG pH 7.44 (7.32-7.43) H 02/07/24 05:33 VBG pCO2 44 mmHg 02/07/24 05:33 VBG pO2 76 mmHg 02/07/24 05:33 VBG HCO3 30 mmol/L (22-26) H 02/07/24 05:33 VBG O2 Saturation 97.0 % 02/07/24 05:33 VBG Base Excess 5.6 mmol/L 02/07/24 05:33 Sodium 143 mmol/L (135-145) 02/07/24 05:28 Potassium 3.8 mmol/L (3.3-5.1) 02/07/24 05:28 Chloride 107 mmol/L (96-108) 02/07/24 05:28 Carbon Dioxide 28 mmol/L (22-29) 02/07/24 05:28 Anion Gap 12 (12-20) 02/07/24 05:28 BUN 11 mg/dL (9-16) 02/07/24 05:28 Creatinine 0.70 mg/dL (0.5-1.4) 02/07/24 05:28 Estim Creat Clear Calc 118.8 02/07/24 05:28 Estimated GFR > 60 02/07/24 05:28 Random Glucose 141 mg/dL (60-115) H 02/07/24 05:28 Calcium 10.5 mg/dL (8.4-10.2) H D 02/07/24 05:28 Troponin I High Sens < 2.7 ng/L (<3.5-17.0) 02/06/24 19:56 B-Natriuretic Peptide 11 pg/mL (<100) 02/06/24 19:56 Urine Opiates Screen Not Detected (Not Detect) 02/06/24 08:49 Urine Fentanyl Screen Not Detected (Not Detect) 02/06/24 08:49 Ur Barbiturates Screen Not Detected (Not Detect) 02/06/24 08:49 Ur Phencyclidine Scrn Not Detected (Not Detect) 02/06/24 08:49 Ur Amphetamines Screen Not Detected (Not Detect) 02/06/24 08:49 U Benzodiazepines Scrn Not Detected (Not Detect) 02/06/24 08:49 Urine Cocaine Screen Not Detected (Not Detect) 02/06/24 08:49 U Marijuana (THC) Screen Not Detected (Not Detect) 02/06/24 08:49 Influenza Type A (PCR) NEGATIVE (Negative) 02/05/24 Unknown Influenza Type B (PCR) NEGATIVE (Negative) 02/05/24 Unknown RSV RNA Qual (PCR) NEGATIVE (Negative) 02/05/24 Unknown SARS-CoV-2 RNA (RT-PCR) NEGATIVE (Negative) 02/05/24 Unknown Impressions Chest X-Ray 02/05/24 11:29 IMPRESSION: Increased interstitial prominence which is nonspecific and could be associated with asthma, bronchitis, reactive airways disease or atypical infections. Chest CTA 02/06/24 18:43 IMPRESSION: 1. Right lower lobe segmental pulmonary embolus. 2. Tree-in-bud opacities in the lingula may be infectious/inflammatory in etiology. VTE: positive. Venous Duplex 02/07/24 13:00 IMPRESSION: No DVT demonstrated in either lower extremity. Discharge Plan Discharge Anticipated Discharge Date/Time: 02/08/24 11:09 Patient Disposition: Home Health Service Discharge Diagnosis: hypoxia COPD exacerbation pulmonary embolism Referrals: tere [Other] - 1 Week Mike Malone MD [Primary Care Provider] - 1 Week Discharge Medications: New doxycycline monohydrate 100 mg Capsule 100 mg PO BID Qty: 4 0RF Eliquis 5 mg Tablet See Rx Instructions .ROUTE .COMPLEX Qty: 74 0RF Rx Instructions: 2 tabs bid for 7 days, then 1 tab bid for life prednisone 20 mg Tablet 40 mg PO DAILY Qty: 4 0RF Continued ropinirole 1 mg Tablet 1 mg PO BEDTIME Qty: 30 0RF olanzapine 10 mg Tablet 10 mg PO BEDTIME Qty: 30 0RF clonidine HCl 0.2 mg Tablet 0.2 mg PO BEDTIME Qty: 30 0RF Protocol: Hold for SBP< HOLD for SBP < : 90 albuterol sulfate [Ventolin HFA] 90 mcg/actuation Hfa Aerosol Inhaler 2 puff inhalation Q4H PRN (Reason: shortness of breath or wheezing) Qty: 6.7 0RF tiotropium bromide [Spiriva with HandiHaler] 18 mcg Capsule, W/Inhalation Device 18 mcg inhalation RDAILY Qty: 20 0RF ferrous sulfate 324 mg (65 mg iron) Tablet,Delayed Release (Dr/Ec) 324 mg PO DAILY Qty: 30 0RF cetirizine 10 mg Tablet 10 mg PO DAILY PRN (Reason: Allergy Symptoms) nicotine (polacrilex) 2 mg Gum 2 mg BUCCAL Q2H PRN (Reason: Nicotine Cravings) melatonin 3 mg Tablet 3 mg PO BEDTIME valacyclovir 500 mg Tablet 500 mg PO DAILY nicotine 21 mg/24 hr Patch 24 Hour 1 patch TRANSDERMAL DAILY omeprazole 20 mg Capsule,Delayed Release(Dr/Ec) 20 mg PO DAILY@0630 lithium carbonate 450 mg tablet extended release 450 mg PO TID cyanocobalamin (vitamin B-12) [Vitamin B-12] 1,000 mcg tablet 1,000 mcg PO DAILY ipratropium-albuterol 0.5 mg-3 mg(2.5 mg base)/3 mL solution for nebulization 3 ml inhalation RQ6H PRN (Reason: Shortness Of Breath Or Wheezing) gabapentin 400 mg Capsule 400 mg PO TID Discharge Orders: Discharge Order (Routine); Ordered 02/08/24 Ordered By: Bertrand Caldwell Diet: Advance to usual diet Activity on Discharge: As tolerated Stand Alone Forms: Patient Portal Discharge page Print Language: [place] Care Plan Goals: pulmonary health Health Concerns: hypoxia COPD exacerbation pulmonary embolism Plan of Treatment: weaned off of oxygen take doxycycline 100 mg twice daily for two days PLUS prednisone 40 mg once daily for two days; use inhalers and nebulizer as needed; continue tiotropium take apixaban 10 mg twice daily for seven days, then 5 mg twice daily for life stop smoking! Please follow up with your primary care doctor within 1 week. Return to the hospital if you experience recurrent or worsening symptoms. Assessment: See Discharge Summary. Discharge Date/Time: 02/08/24 13:40
--- NOTE | 2024-02-08 13:37 | MHC.CM.PN ---
pt dcd home by [facility] with resumption of [facility] and [facility] servies
== END 2024-02-08 13:40 | disposition home health service (06) | DRG 140 ==
LOC: HO.ED 12:26 → HO.EDOVER 13:08 → HO.S3 02-06 05:22
PROVIDERS: Internal Medicine; Student in an Organized Health Care Education/Training Program; Admitting Provider Student in an Organized Health Care Education/Training Program; Emergency Provider Student in an Organized Health Care Education/Training Program; PCP Internal Medicine; Visit Provider Family Medicine
DX: J44.1 Chronic obstructive pulmonary disease with (acute) exacerbation (principal); J96.01 Acute respiratory failure with hypoxia; I26.99 Other pulmonary embolism without acute cor pulmonale; F60.3 Borderline personality disorder; F31.9 Bipolar disorder, unspecified; J45.901 Unspecified asthma with (acute) exacerbation; E66.01 Morbid (severe) obesity due to excess calories; Z68.41 Body mass index [BMI] 40.0-44.9, adult; Z59.01 Sheltered homelessness; Z92.3 Personal history of irradiation; F17.210 Nicotine dependence, cigarettes, uncomplicated; Z71.6 Tobacco abuse counseling; Z20.822 Contact with and (suspected) exposure to COVID-19; Z85.858 Personal history of malignant neoplasm of other endocrine glands; Z91.040 Latex allergy status; Z79.899 Other long term (current) drug therapy
CPT/HCPCS: 0241U; 36415; 36600; 71046; 71275; 80048; 80307; 82803; 83880; 84484; 85025; 85379; 92950; 93005; 93306; 93970; 94640; 94660; 97162; 99285; J1650; J2920; J2930; J3475; Q9957; Q9967

== ENCOUNTER 2024-02-05 12:57 | Outpatient (BNV) | payer MEDICAID, SELFPAY | END 2024-02-07 07:00 | PROVIDERS: Admitting Provider Student in an Organized Health Care Education/Training Program; Emergency Provider Student in an Organized Health Care Education/Training Program; PCP Internal Medicine; Visit Provider Internal Medicine Cardiovascular Disease | DX: I26.99 Other pulmonary embolism without acute cor pulmonale (principal) | CPT/HCPCS: 93306 ==

== ENCOUNTER 2024-02-05 12:57 | Outpatient (BNV) | payer MEDICAID, SELFPAY | END 2024-02-06 11:37 | PROVIDERS: Admitting Provider Student in an Organized Health Care Education/Training Program; Emergency Provider Student in an Organized Health Care Education/Training Program; Visit Provider Internal Medicine Cardiovascular Disease | DX: R07.9 Chest pain, unspecified (principal) | CPT/HCPCS: 93010 ==

== ENCOUNTER 2024-02-05 12:57 | Outpatient (BNV) | payer MEDICAID, SELFPAY | END 2024-02-08 07:30 | PROVIDERS: Admitting Provider Student in an Organized Health Care Education/Training Program; Emergency Provider Student in an Organized Health Care Education/Training Program; PCP Internal Medicine; Visit Provider Internal Medicine Cardiovascular Disease | DX: R94.31 Abnormal electrocardiogram [ECG] [EKG] (principal) | CPT/HCPCS: 93010 ==

== ENCOUNTER → 2024-02-05 12:57 | Outpatient (BNV) | payer MEDICAID, SELFPAY | PROVIDERS: Admitting Provider Student in an Organized Health Care Education/Training Program; Emergency Provider Student in an Organized Health Care Education/Training Program; Visit Provider Student in an Organized Health Care Education/Training Program | DX: I26.99 Other pulmonary embolism without acute cor pulmonale (principal); J44.1 Chronic obstructive pulmonary disease with (acute) exacerbation; J45.901 Unspecified asthma with (acute) exacerbation; E66.01 Morbid (severe) obesity due to excess calories | CPT/HCPCS: 99223; 99232; 99239 ==

== ENCOUNTER → 2024-02-05 12:57 | Outpatient (BNV) | payer MEDICAID, SELFPAY | PROVIDERS: Admitting Provider Student in an Organized Health Care Education/Training Program; Emergency Provider Student in an Organized Health Care Education/Training Program; PCP Internal Medicine; Visit Provider Internal Medicine | DX: I26.99 Other pulmonary embolism without acute cor pulmonale (principal) | CPT/HCPCS: 99222 ==

== ENCOUNTER 2024-02-14 12:45 | Emergency (ER) | payer MEDICAID, SELFPAY ==
--- NOTE | ~2024-02-14 | XR_ITS ---
EXAMINATION: XR CHEST CLINICAL INFORMATION: Pain COMPARISON: Chest 02/05/2024 TECHNIQUE: 2 views of the chest were obtained. FINDINGS: The lungs are well expanded. Increased diffuse interstitial prominence is similar to the prior study. Peribronchial thickening is noted. No focal consolidation, interstitial pulmonary edema or pneumothorax. No pleural effusion. The cardiomediastinal silhouette is within normal limits. No acute osseous abnormality. XR/XR chest 2V IMPRESSION: Increased interstitial prominence which is nonspecific, similar to the prior study, and could be associated with asthma, bronchitis, reactive airway disease or atypical infections.
[2024-02-14 12:54] VITALS: BP 132/82; PULSE 95; O2SAT 96
--- NOTE | 2024-02-14 12:54 | ECG_ITS ---
Test Reason : sob, cp Blood Pressure : / mmHG Vent. Rate : 095 BPM Atrial Rate : 095 BPM P-R Int : 128 ms QRS Dur : 082 ms QT Int : 348 ms P-R-T Axes : 000 024 039 degrees QTc Int : 437 ms Normal sinus rhythm Normal ECG When compared with ECG of 08-FEB-2024 07:40, No significant change was found Referred By: Generic ED Physician Electronically Signed By:ALEJANDRO MCCLELLAN
[2024-02-14 13:21] VITALS: BP 127/74; PULSE 93; RESP 17; TEMP 36.6; O2SAT 93; BMI 39.9
--- NOTE | 2024-02-14 13:28 | ED.GENADULT ---
HPI - General Adult General Chief complaint: Dyspnea Stated complaint: WEAK,SOB FOR DAYS,96% RA,LOW BACK PAIN PER EMS Related Data Home Medications ?Medication ?Instructions ?Recorded ?Confirmed lithium carbonate 450 mg 450 mg PO TID 05/14/23 02/05/24 tablet,extended release cyanocobalamin (vitamin B-12) 1,000 mcg PO DAILY 06/11/23 02/05/24 1,000 mcg tablet (Vitamin B-12) ipratropium 0.5 mg-albuterol 3 mg 3 ml inhalation RQ6H PRN Shortness 06/11/23 02/05/24 (2.5 mg base)/3 mL nebulization Of Breath Or Wheezing soln gabapentin 400 mg capsule 400 mg PO TID 10/24/23 02/05/24 cetirizine 10 mg tablet 10 mg PO DAILY PRN Allergy Symptoms 12/19/23 02/05/24 melatonin 3 mg tablet 3 mg PO BEDTIME 12/19/23 02/05/24 nicotine (polacrilex) 2 mg gum 2 mg buccal Q2H PRN Nicotine 12/19/23 02/05/24 Cravings valacyclovir 500 mg tablet 500 mg PO DAILY 12/19/23 02/05/24 nicotine 21 mg/24 hr daily 1 patch transdermal DAILY 12/29/23 02/05/24 transdermal patch omeprazole 20 mg capsule,delayed 20 mg PO DAILY@0630 12/29/23 02/05/24 release Previous Rx's ?Medication ?Instructions ?Recorded albuterol sulfate 90 mcg/actuation 2 puff inhalation Q4H PRN 03/22/23 aerosol inhaler (Ventolin HFA) shortness of breath or wheezing #6.7 grams clonidine HCl 0.2 mg tablet 0.2 mg PO BEDTIME #30 tabs 03/22/23 ferrous sulfate 324 mg (65 mg 324 mg PO DAILY #30 tabs 03/22/23 iron) tablet,delayed release olanzapine 10 mg tablet 10 mg PO BEDTIME #30 tabs 03/22/23 ropinirole 1 mg tablet 1 mg PO BEDTIME #30 tabs 03/22/23 tiotropium bromide 18 mcg capsule 18 mcg inhalation RDAILY #20 03/22/23 with inhalation device (Spiriva inhalations with HandiHaler) apixaban 5 mg tablet (Eliquis) See Rx Instructions .Route 02/08/24 .COMPLEX #74 tabs doxycycline monohydrate 100 mg 100 mg PO BID #4 caps 02/08/24 capsule prednisone 20 mg tablet 40 mg (2 x 20 mg) PO DAILY #4 tabs 02/08/24 Allergies Allergy/AdvReac Type Severity Reaction Status Date / Time aspirin Allergy Mild Anaphylaxis Verified 02/14/24 13:23 ampicillin Allergy Rash Verified 02/14/24 13:23 Penicillins Allergy Anaphylaxis Verified 02/14/24 13:23 latex AdvReac Rash Verified 02/14/24 13:23 Latex, Natural Rubber AdvReac Rash Verified 02/14/24 13:23 seafood AdvReac Anaphylaxis Verified 02/14/24 13:23 Sulfa (Sulfonamide AdvReac Hives Verified 02/14/24 13:23 Antibiotics) [facility] Past Medical History Medical History (Updated 02/11/24 @ 00:02 by Rogerio Villaseñor) Intentional overdose Acute bronchospasm Bipolar I disorder with depression Overdose on Tylenol Suicide attempt Asthma COPD (chronic obstructive pulmonary disease) Chronic lung disease Neoplasm of parotid gland Depression 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 Drug abuse Bipolar I disorder Post traumatic stress disorder (PTSD) Tobacco use disorder FABIOLA (obstructive sleep apnea) Borderline personality disorder Intermittent explosive disorder Asthma exacerbation in COPD Herpes Tobacco use Bipolar disorder COPD (chronic obstructive pulmonary disease) Surgical History (Updated 02/07/24 @ 11:10 by Fe Chavez MD) History of ankle surgery History of back surgery Hx of cholecystectomy History of appendectomy Family History Family History Mother COPD (chronic obstructive pulmonary disease) Social History Social History Household Members: None Household Members Other:: [facility] in [place] Housing: Apartment Housing Other:: Sleeps on the couch at [facility] house Do you presently have visiting nurse or other home services: No Unable to assess alcohol history related to: Unknown Alcohol intake: current Alcohol intake frequency: holidays/special occasions only Alcohol type: hard liquor Comment: 1;1 DUE TO O2 Patient Tobacco Use Status: Current everyday Tobacco user Tobacco use type: Cigarette Cigarette Packs Per Day: 0.25 Years Smoked: 20 e-Cigarette/Vaping Use: Never Used Second Hand Smoke Exposure: No Substance Use Type: Crack/Cocaine Advance Directives Date on File: 06/17/22 service: No Current occupational status: unemployed and disabled Sexual orientation: Straight/Heterosexual Physical Exam ED Vital Signs: Vital Signs - 24 hr 02/14/24 13:21 Temperature 97.9 F Pulse Rate 93 Respiratory Rate 17 Blood Pressure 127/74 Pulse Oximetry 93 Oxygen Delivery Method Room Air BMI result Body Mass Index 39.9 Course Course Course Narrative: [place]- 54-year-old female presents for evaluation of shortness of breath, chest pain. She was diagnosed with PE 2 weeks ago. She is stable in triage. Plan for labs, EKG, chest x-ray, viral swab Discharge Plan Discharge Prescriptions: No Action ropinirole 1 mg Tablet 1 mg PO BEDTIME Qty: 30 0RF olanzapine 10 mg Tablet 10 mg PO BEDTIME Qty: 30 0RF clonidine HCl 0.2 mg Tablet 0.2 mg PO BEDTIME Qty: 30 0RF Protocol: Hold for SBP< HOLD for SBP < : 90 albuterol sulfate [Ventolin HFA] 90 mcg/actuation Hfa Aerosol Inhaler 2 puff inhalation Q4H PRN (Reason: shortness of breath or wheezing) Qty: 6.7 0RF tiotropium bromide [Spiriva with HandiHaler] 18 mcg Capsule, W/Inhalation Device 18 mcg inhalation RDAILY Qty: 20 0RF ferrous sulfate 324 mg (65 mg iron) Tablet,Delayed Release (Dr/Ec) 324 mg PO DAILY Qty: 30 0RF cetirizine 10 mg Tablet 10 mg PO DAILY PRN (Reason: Allergy Symptoms) nicotine (polacrilex) 2 mg Gum 2 mg BUCCAL Q2H PRN (Reason: Nicotine Cravings) melatonin 3 mg Tablet 3 mg PO BEDTIME valacyclovir 500 mg Tablet 500 mg PO DAILY nicotine 21 mg/24 hr Patch 24 Hour 1 patch TRANSDERMAL DAILY omeprazole 20 mg Capsule,Delayed Release(Dr/Ec) 20 mg PO DAILY@0630 lithium carbonate 450 mg tablet extended release 450 mg PO TID cyanocobalamin (vitamin B-12) [Vitamin B-12] 1,000 mcg tablet 1,000 mcg PO DAILY ipratropium-albuterol 0.5 mg-3 mg(2.5 mg base)/3 mL solution for nebulization 3 ml inhalation RQ6H PRN (Reason: Shortness Of Breath Or Wheezing) gabapentin 400 mg Capsule 400 mg PO TID doxycycline monohydrate 100 mg Capsule 100 mg PO BID Qty: 4 0RF Eliquis 5 mg Tablet See Rx Instructions .ROUTE .COMPLEX Qty: 74 0RF Rx Instructions: 2 tabs bid for 7 days, then 1 tab bid for life prednisone 20 mg Tablet 40 mg PO DAILY Qty: 4 0RF Print Language: Tajik
[2024-02-14 13:59] LABS: MANUAL DIFF FLAG NO
[2024-02-14 14:03] LABS: Basophils Absolute Auto 0.1 X10*3/uL (0.0-0.2); Eosinophils Percent Auto 0.2 % (0-4); Hematocrit 47.5 % (37.0-47.0); Hemoglobin 14.8 g/dl (12.0-16.0); Imm Gran Pct Auto 0.8 % (0.0-0.4); Lymphocytes Absolute Auto 1.4 X10*3/uL (1.2-4.9); Lymphocytes Percent Auto 11.6 % (20-40); Mean Corpuscular HGB Conc 31.2 g/dl (31.0-35.0); Mean Corpuscular Hemoglobin 30.8 pg (27.0-33.0); Mean Corpuscular Volume 98.8 fL (80.0-98.0); Mean Platelet Volume 9.6 fL (9.4-12.3); Monocytes Absolute Auto 0.2 X10*3/uL (0.1-1.2); Monocytes Percent Auto 1.2 % (2-11); Neutrophils Absolute Auto 10.5 x10*3/uL (2.0-8.3); Neutrophils Percent Auto 85.2 % (45-73); Platelet Count 393 X10*3/uL (160-400); Red Blood Count 4.81 X10*6/uL (4.20-5.50); Red Cell Distribution Width 14.4 % (11.0-16.0); White Blood Count 12.3 X10*3/uL (4.8-10.8)
[2024-02-14 14:06] LABS: INTERNATIONAL NORM RATIO 0.9 (0.9-1.1); Prothrombin Time 11.1 SEC (11.1-13.3)
[2024-02-14 14:21] LABS: Alanine Aminotransferase 14 U/L (0-31); Albumin Level 4.2 g/dL (3.5-5.0); Alkaline Phosphatase 57 U/L (39-117); Anion Gap 12 (12-20); Aspartate Amino Transferase 10 U/L (5-31); Bilirubin Total 0.3 mg/dL (0.0-1.0); Blood Urea Nitrogen 9 mg/dL (9-16); Carbon Dioxide 28 mmol/L (22-29); Chloride 102 mmol/L (96-108); Creatinine Clr Calc Pharmacy 107.2; Estimated Glomerular Filt Rate > 60; Glucose Random 124 mg/dL (60-115); Lipase 31 U/L (8-78); Potassium 4.7 mmol/L (3.3-5.1); Sodium 137 mmol/L (135-145); Total Protein 6.9 g/dL (6.5-8.0)
[2024-02-14 14:24] LABS: B Type Natriuretic Peptide 15 pg/mL (<100)
[2024-02-14 14:51] LABS: Influenza A PCR NEGATIVE (Negative); Influenza B PCR NEGATIVE (Negative); Resp Syncy Virus RNA Qual PCR NEGATIVE (Negative); SARS COV2 PCR INHOUSE NEGATIVE (Negative)
[2024-02-14 15:04] LABS: Troponin-I High Sensitivity < 2.7 ng/L (<3.5-17.0)
== END 2024-02-14 17:47 | disposition left against medical advice (07) ==
PROVIDERS: Physician Assistant; Emergency Provider Emergency Medicine; PCP Internal Medicine
DX: R53.1 Weakness (principal); R06.02 Shortness of breath
CPT/HCPCS: 0241U; 71046; 80053; 83690; 83880; 84484; 85025; 85610; 93005; 99283

== ENCOUNTER → 2024-02-14 12:54 | Outpatient (BNV) | payer MEDICAID, SELFPAY | PROVIDERS: PCP Internal Medicine; Visit Provider Internal Medicine | DX: R06.02 Shortness of breath (principal); R07.9 Chest pain, unspecified | CPT/HCPCS: 93010 ==

== ENCOUNTER 2024-02-19 18:28 | Inpatient (IN) | payer MEDICAID, SELFPAY ==
--- NOTE | ~2024-02-19 | XR_ITS ---
EXAMINATION: PORTABLE CHEST 1 VIEW CLINICAL INFORMATION: SOB. COMPARISON: 02/14/2024. TECHNIQUE: Portable frontal view of the chest was obtained. FINDINGS: The lungs are well expanded. Bilateral peribronchial cuffing is again seen suggesting reactive or small airways disease. No superimposed focal infiltrate, effusion, edema, or pneumothorax. Cardiac and mediastinal silhouettes are within normal limits for technique. No acute bony abnormality seen. XR/XR chest 1V IMPRESSION: Bilateral peribronchial cuffing again seen suggesting underlying reactive or small airways disease.
[2024-02-19 18:38] VITALS: BP 115/73; BP 148/88; PULSE 102; PULSE 99; RESP 22; TEMP 36.8; O2SAT 94; O2SAT 95; BMI 44.7
--- NOTE | 2024-02-19 18:44 | ECG_ITS ---
Test Reason : SOB Blood Pressure : / mmHG Vent. Rate : 102 BPM Atrial Rate : 102 BPM P-R Int : 128 ms QRS Dur : 080 ms QT Int : 344 ms P-R-T Axes : 032 051 046 degrees QTc Int : 448 ms Sinus tachycardia Otherwise normal ECG When compared with ECG of 14-FEB-2024 13:04, No significant change was found Referred By: Ayla Pedro Electronically Signed By:VAIBHAV KILLIAN MD
--- NOTE | 2024-02-19 18:56 | ED_ITS ---
HPI - General Adult General Chief complaint: Psychiatric Symptoms Stated complaint: SI w/ plan, 3L O2 baseline, chest pressure off O2 Time Seen by Provider: 02/19/24 18:51 Source: patient and RN notes reviewed Mode of arrival: ambulatory Limitations: no limitations History of Present Illness HPI narrative: This is a 54-year-old female, with a history of pulmonary embolism on Eliquis, COPD on 4L nasal cannula, bipolar disorder, and anxiety, who presents emergency department with complaints of shortness of breath, suicidal ideation, and chest pain. Patient states that over the last several days she has had thoughts of overdosing on gabapentin, and she decided to tell her friend who called the ambulance. She denies overdosing on gabapentin but has had thoughts of doing this. She also reports that since yesterday she has had sharp left-sided chest pressure which has been constant since yesterday. She reports that she has been congested and believes that she has a cold, reporting congestion, productive cough with yellow-colored sputum. She denies any abdominal pain, nausea, vomiting or diarrhea. Denies taking any medications prior to arrival. She recently was admitted from February 04 through 02/07 for asthma exacerbation and COPD as well as finding of pulmonary embolism, she was started on apixaban at that time. She has been compliant with all of her medications. No other complaints or concerns at this time. MD complaint: Shortness of breath, suicidal ideation Onset (ago): day(s) Severity: moderate Quality: stabbing Pain Consistency: constant Relieving factors: none Exacerbating factors: none Associated symptoms: chest pain, cough and fever/chills Related Data Home Medications ?Medication ?Instructions ?Recorded ?Confirmed lithium carbonate 450 mg 450 mg PO TID 05/14/23 02/05/24 tablet,extended release cyanocobalamin (vitamin B-12) 1,000 mcg PO DAILY 06/11/23 02/05/24 1,000 mcg tablet (Vitamin B-12) ipratropium 0.5 mg-albuterol 3 mg 3 ml inhalation RQ6H PRN Shortness 06/11/23 02/05/24 (2.5 mg base)/3 mL nebulization Of Breath Or Wheezing soln gabapentin 400 mg capsule 400 mg PO TID 10/24/23 02/05/24 cetirizine 10 mg tablet 10 mg PO DAILY PRN Allergy Symptoms 12/19/23 02/05/24 melatonin 3 mg tablet 3 mg PO BEDTIME 12/19/23 02/05/24 nicotine (polacrilex) 2 mg gum 2 mg buccal Q2H PRN Nicotine 12/19/23 02/05/24 Cravings valacyclovir 500 mg tablet 500 mg PO DAILY 12/19/23 02/05/24 nicotine 21 mg/24 hr daily 1 patch transdermal DAILY 12/29/23 02/05/24 transdermal patch omeprazole 20 mg capsule,delayed 20 mg PO DAILY@0630 12/29/23 02/05/24 release Previous Rx's ?Medication ?Instructions ?Recorded albuterol sulfate 90 mcg/actuation 2 puff inhalation Q4H PRN 03/22/23 aerosol inhaler (Ventolin HFA) shortness of breath or wheezing #6.7 grams clonidine HCl 0.2 mg tablet 0.2 mg PO BEDTIME #30 tabs 03/22/23 ferrous sulfate 324 mg (65 mg 324 mg PO DAILY #30 tabs 03/22/23 iron) tablet,delayed release olanzapine 10 mg tablet 10 mg PO BEDTIME #30 tabs 03/22/23 ropinirole 1 mg tablet 1 mg PO BEDTIME #30 tabs 03/22/23 tiotropium bromide 18 mcg capsule 18 mcg inhalation RDAILY #20 03/22/23 with inhalation device (Spiriva inhalations with HandiHaler) apixaban 5 mg tablet (Eliquis) See Rx Instructions .Route 02/08/24 .COMPLEX #74 tabs doxycycline monohydrate 100 mg 100 mg PO BID #4 caps 02/08/24 capsule prednisone 20 mg tablet 40 mg (2 x 20 mg) PO DAILY #4 tabs 02/08/24 Allergies Allergy/AdvReac Type Severity Reaction Status Date / Time aspirin Allergy Mild Anaphylaxis Verified 02/19/24 18:42 ampicillin Allergy Rash Verified 02/19/24 18:42 Penicillins Allergy Anaphylaxis Verified 02/19/24 18:42 latex AdvReac Rash Verified 02/19/24 18:42 Latex, Natural Rubber AdvReac Rash Verified 02/19/24 18:42 seafood AdvReac Anaphylaxis Verified 02/19/24 18:42 Sulfa (Sulfonamide AdvReac Hives Verified 02/19/24 18:42 Antibiotics) Review of Systems 2 Review of Systems: Yes all other systems are reviewed and are negative Constitutional: Constitutional: Reports as per [facility] Past Medical History Attestation statement: The following information was validated with the patient. Medical History Intentional overdose Acute bronchospasm Bipolar I disorder with depression Overdose on Tylenol Suicide attempt Asthma COPD (chronic obstructive pulmonary disease) Chronic lung disease Neoplasm of parotid gland Depression 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 Drug abuse Bipolar I disorder Post traumatic stress disorder (PTSD) Tobacco use disorder FABIOLA (obstructive sleep apnea) Borderline personality disorder Intermittent explosive disorder Asthma exacerbation in COPD Herpes Tobacco use Bipolar disorder COPD (chronic obstructive pulmonary disease) Surgical History History of ankle surgery History of back surgery Hx of cholecystectomy History of appendectomy Family History Family History Mother COPD (chronic obstructive pulmonary disease) Social History Social History Household Members: None Household Members Other:: Retirement in [place] Housing: Apartment Housing Other:: Sleeps on the couch at [facility] house Do you presently have visiting nurse or other home services: No Unable to assess alcohol history related to: Unknown Alcohol intake: current Alcohol intake frequency: holidays/special occasions only Alcohol type: hard liquor Comment: 1;1 DUE TO O2 Patient Tobacco Use Status: Current everyday Tobacco user Tobacco use type: Cigarette Cigarette Packs Per Day: 0.25 Years Smoked: 20 e-Cigarette/Vaping Use: Never Used Second Hand Smoke Exposure: No Substance Use Type: Crack/Cocaine Advance Directives: Yes Advance Directives on File: Yes Advance Directives Date on File: 06/17/22 Patient : No service: No Current occupational status: unemployed and disabled Sexual orientation: Straight/Heterosexual Physical Exam ED Vital Signs: Vital Signs - 24 hr 02/19/24 18:38 02/19/24 19:29 02/19/24 19:37 Temperature 98.3 F Pulse Rate 99 92 90 Respiratory Rate 22 H 22 H 28 H Blood Pressure 115/73 120/79 Pulse Oximetry 95 93 Oxygen Delivery Method Nasal Cannula Nasal Cannula Oxygen Flow Rate 4 02/19/24 22:00 02/20/24 00:00 02/20/24 02:00 Temperature 97.6 F 97.5 F 97.4 F Pulse Rate 95 85 83 Respiratory Rate 27 H 28 H 25 H Blood Pressure 109/64 103/59 L 123/64 Pulse Oximetry 91 L 91 L 90 L Oxygen Delivery Method Nasal Cannula Nasal Cannula CPAP Oxygen Flow Rate 4 5 5 02/20/24 02:56 02/20/24 03:07 Temperature Pulse Rate 94 86 Respiratory Rate 17 17 Blood Pressure 113/62 Pulse Oximetry 93 Oxygen Delivery Method CPAP Oxygen Flow Rate BMI result Body Mass Index 44.7 Const General: cooperative, comfortable and no acute distress Orientation/consciousness: patient oriented x3 Limitations: no limitations HENMT Head: Yes normal to inspection, Yes normocephalic and Yes atraumatic Ears: hearing grossly normal bilaterally General nose exam: Normal external nose present Face and sinus: Yes normal facial exam Mouth: Normal oral and palatal mucosa present, oropharynx normal and moist mucous membranes Throat: Yes posterior oropharynx normal Eyes General: appearance normal, both eyes and all related structures Eyelids: Yes eyelids normal Conjunctivae: conjunctivae normal Sclerae: sclerae normal Pupils: Equal, round and reactive pupils present EOM: EOMs intact bilaterally Neck Neck: Yes normal visual inspection, Yes full ROM and Yes no lymphadenopathy Lymphatic: no lymphadenopathy noted Chest Chest palpation & inspection: normal inspection of the chest Resp Other: Extremely diminished lung sounds in bilateral lung bases, with crackles noted Effort & Inspection: normal respiratory effort and able to speak in complete sentences Cardio Rate: regular rate Rhythm: regular rhythm Heart sounds: S1 normal heart sound present and S2 normal heart sound present GI Inspection: Yes normal to inspection Skin General skin exam: no rashes or lesions noted Trauma: no lacerations or abrasions Wounds: no wounds Neuro General: patient oriented x3 and moves all extremities Cranial nerves: Yes Equal, round and reactive pupils present Extrem General: Yes normal to inspection Right upper extremity: normal to inspection Left upper extremity: normal to inspection Right lower extremity: normal to inspection Left lower extremity: normal to inspection Course Reevaluation(s) Reevaluation #1: Patient does have leukocytosis at 18.3, with shift, chemistry still pending. COVID flu, RSV still pending. Chest x-ray revealing bilateral nikolai bronchial cuffing again seen suggesting underlying reactive or small airway disease. Time: 21:49 Reevaluation #2: Chemistry finally returns, patient with nondiagnostic chemistry, patient tested negative for influenza, RSV, and flu. Patient oxygen saturation 91% on 4 L. patient's case was reviewed by my attending physician, Dr. Nova, who reviewed labs, and assessed patient. Patient has chronic bronchitis and does not feel as though patient qualifies for hospital admission and does not or need for antibiotics. She has no consolidation seen on x-ray, and she has been on prednisone, as she previously was hospitalized for a PE, COPD. She has been compliant with her medications at home. Patient at this time has been medically cleared, will place patient on CPAP awaiting psychiatric consultation. Time: 23:04 Reevaluation #3: Patient became hypoxic at 83% on 4 L CPAP. I discussed case with Dr. Nova. Patient has multi factorial hypoxia with chronic disease including sleep apnea, FABIOLA. Again, leukocytosis likely due to steroidal use, not thought to be bacterial at this time. Discussed case with hospitalist. Pt 86% on 5L CPAP; Spoke to hospitalist, Dr. Fierro, who is unsure if this patient will need ICU or the floor, reports that she will see her but not accepting patient at this point. Time: 02:03 Additional Reevaluation(s): 02/20/2024 - 0238 - the patient became even more hypoxic, saturating in the 70s, I alerted my attending physician, Dr. Hollis, who will place EJ and assume care. Consultations Consultation #1: 03:36 I obtained IV access in the patient's right EJ. Patient was given Solu-Medrol 125 mg IV, albuterol 7.5 mg and ipratropium 0.5 mg as a nebulizer. Patient's hypoxia did improve and I suspect that her hypoxia may have been secondary to bronchospasm. Patient does have strep sleep apnea and she is on CPAP I did discuss the patient's presentation with the covering hospitalist, Dr. Quiros the patient will be admitted for COPD exacerbation. Time: 03:36 Medications Administered Discontinued Medications Generic Name Dose Route Start Last Admin Trade Name Freq PRN Reason Stop Dose Admin Albuterol Sulfate 2.5 mg/ 5 mg 02/20/24 03:03 02/20/24 03:07 Albuterol Sulfate 2.5 mg INHALE 02/20/24 03:04 5 mg ONCE ONE Administration Albuterol Sulfate 5 mg/ 0 mg 02/19/24 19:14 02/19/24 19:25 Albuterol/Ipratropium 3 ml INHALE 02/19/24 19:15 10 each ONCE ONE Administration Methylprednisolone Sodium Succinate 125 mg 02/20/24 02:43 02/20/24 02:50 Methylprednisolone Sod Succ 125 Mg/2 Ml Vial IVPUSH 02/20/24 02:44 125 mg ONCE ONE Administration Procedures EJ/Peripheral Line Neck R: Time Out Performed: No Skin Cleansed in Sterile Fashion: Yes Size (gauge): 20 IV Secured and Dressing Applied: Yes Patient Tolerated Procedure: well Medical Decision Making Medical Decision Making MDM Narrative: 54-year-old female, with a history of pulmonary embolism on Eliquis, COPD on 3L nasal cannula, bipolar disorder, and anxiety, who presents emergency department with complaints of shortness of breath, suicidal ideation, and chest pain. On arrival, respirations 22, patient is saturating at 95% on 3 L. lungs with diminished lung sounds noted to bilateral lung bases with crackles noted. Differential diagnoses include COPD exacerbation, COVID, pneumonia, CHF, respiratory failure, pulmonary embolism. Patient in no respiratory distress, speaking in full sentences. Plan: Labs, EKG, chest x-ray, IV Solu-Medrol, ED bronch protocol Differential Diagnosis Differential Diagnoses: The differential diagnosis associated with the presentation includes See above Admission/Observation Consideration of admission/observation: Escalation of care including admission/observation considered Escalation of care including admission/observation needed Lab Data [facility] Lab Attestation statement: I reviewed the patient's lab results. Patient with leukocytosis at 18.3, likely reactive secondary to steroid use. Chemistry within normal limits. 02/19/24 19:17 02/19/24 21:26 Labs: Lab Results 02/19/24 02/19/24 02/19/24 Range/Units 19:17 19:28 21:19 WBC 18.3 H (4.8-10.8) X10*3/uL RBC 4.55 (4.20-5.50) X10*6/uL Hgb 14.3 (12.0-16.0) g/dl Hct 44.7 (37.0-47.0) % MCV 98.2 H (80.0-98.0) fL MCH 31.4 (27.0-33.0) pg MCHC 32.0 (31.0-35.0) g/dl RDW 14.7 (11.0-16.0) % Plt Count 339 (160-400) X10*3/uL MPV 9.3 L (9.4-12.3) fL Immature Gran % (Auto) 0.4 (0.0-0.4) % Neut % (Auto) 77.4 H (45-73) % Lymph % (Auto) 15.8 L (20-40) % [place] % (Auto) 4.5 (2-11) % Eos % (Auto) 1.2 (0-4) % Baso % (Auto) 0.7 (0-2) % Lymph # (Auto) 2.9 (1.2-4.9) X10*3/uL [place] # (Auto) 0.8 (0.1-1.2) X10*3/uL Eos # (Auto) 0.2 (0.0-0.4) X10*3/uL Baso # (Auto) 0.1 (0.0-0.2) X10*3/uL Abs Immat Gran (auto) 0.07 H (0.00-0.03) X10*3/uL Absolute Neuts (auto) 14.2 H (2.0-8.3) x10*3/uL Absolute Nucleated RBC 0.000 (0.0-0.012) X10*3/uL Nucleated RBC % (auto) 0.0 (0.0-0.2) /100WBC PT 9.5 L (11.1-13.3) SEC INR 0.8 L (0.9-1.1) APTT 30.6 (26.0-36.8) SEC VBG pH 7.47 H (7.32-7.43) VBG pCO2 44 mmHg VBG pO2 101 mmHg VBG HCO3 32 H (22-26) mmol/L VBG O2 Saturation 100.0 % VBG Base Excess 8.1 mmol/L Sodium (135-145) mmol/L Potassium (3.3-5.1) mmol/L Chloride (96-108) mmol/L Carbon Dioxide (22-29) mmol/L Anion Gap (12-20) BUN (9-16) mg/dL Creatinine (0.5-1.4) mg/dL Estim Creat Clear Calc Estimated GFR Random Glucose (60-115) mg/dL Lactic Acid (0.5-2.0) mmol/L Calcium (8.4-10.2) mg/dL Magnesium (1.6-2.6) mg/dL Total Bilirubin (0.0-1.0) mg/dL Direct Bilirubin (0.0-0.5) mg/dL AST (5-31) U/L ALT (0-31) U/L Alkaline Phosphatase (39-117) U/L Troponin I High Sens < 2.7 (<3.5-17.0) ng/L Total Protein (6.5-8.0) g/dL Albumin (3.5-5.0) g/dL Lipase (8-78) U/L Salicylates < 5.0 L (15-30) mg/dL Ethyl Alcohol < 10 mg/dL Influenza Type A (PCR) NEGATIVE (Negative) Influenza Type B (PCR) NEGATIVE (Negative) RSV RNA Qual (PCR) NEGATIVE (Negative) SARS-CoV-2 RNA (RT-PCR) NEGATIVE (Negative) 02/19/24 02/20/24 02/20/24 Range/Units 21:26 02:45 02:47 WBC (4.8-10.8) X10*3/uL RBC (4.20-5.50) X10*6/uL Hgb (12.0-16.0) g/dl Hct (37.0-47.0) % MCV (80.0-98.0) fL MCH (27.0-33.0) pg MCHC (31.0-35.0) g/dl RDW (11.0-16.0) % Plt Count (160-400) X10*3/uL MPV (9.4-12.3) fL Immature Gran % (Auto) (0.0-0.4) % Neut % (Auto) (45-73) % Lymph % (Auto) (20-40) % [place] % (Auto) (2-11) % Eos % (Auto) (0-4) % Baso % (Auto) (0-2) % Lymph # (Auto) (1.2-4.9) X10*3/uL [place] # (Auto) (0.1-1.2) X10*3/uL Eos # (Auto) (0.0-0.4) X10*3/uL Baso # (Auto) (0.0-0.2) X10*3/uL Abs Immat Gran (auto) (0.00-0.03) X10*3/uL Absolute Neuts (auto) (2.0-8.3) x10*3/uL Absolute Nucleated RBC (0.0-0.012) X10*3/uL Nucleated RBC % (auto) (0.0-0.2) /100WBC PT (11.1-13.3) SEC INR (0.9-1.1) APTT (26.0-36.8) SEC VBG pH 7.30 L (7.32-7.43) VBG pCO2 72 mmHg VBG pO2 83 mmHg VBG HCO3 35 H (22-26) mmol/L VBG O2 Saturation 99.0 % VBG Base Excess 6.3 mmol/L Sodium 137 (135-145) mmol/L Potassium 4.0 (3.3-5.1) mmol/L Chloride 104 (96-108) mmol/L Carbon Dioxide 25 (22-29) mmol/L Anion Gap 12 (12-20) BUN 11 (9-16) mg/dL Creatinine 0.71 (0.5-1.4) mg/dL Estim Creat Clear Calc 124.2 Estimated GFR > 60 Random Glucose 129 H (60-115) mg/dL Lactic Acid 1.2 (0.5-2.0) mmol/L Calcium 9.2 D (8.4-10.2) mg/dL Magnesium 1.9 (1.6-2.6) mg/dL Total Bilirubin 0.2 (0.0-1.0) mg/dL Direct Bilirubin < 0.2 (0.0-0.5) mg/dL AST 11 (5-31) U/L ALT 15 (0-31) U/L Alkaline Phosphatase 47 (39-117) U/L Troponin I High Sens (<3.5-17.0) ng/L Total Protein 6.4 L (6.5-8.0) g/dL Albumin 3.8 (3.5-5.0) g/dL Lipase 27 (8-78) U/L Salicylates (15-30) mg/dL Ethyl Alcohol mg/dL Influenza Type A (PCR) (Negative) Influenza Type B (PCR) (Negative) RSV RNA Qual (PCR) (Negative) SARS-CoV-2 RNA (RT-PCR) (Negative) Independent Interpretation I performed an independent interpretation of an: EKG Interpretation: Sinus tachycardia at a ventricular rate of 102 beats per minute, no ST elevation or depression. QT QTC 344/448 Radiology Impression Discussion of test interpretation with radiology: I have reviewed the radiologist's reading. Radiologist Impression: EXAMINATION: PORTABLE CHEST 1 VIEW CLINICAL INFORMATION: SOB. COMPARISON: 02/14/2024. TECHNIQUE: Portable frontal view of the chest was obtained. FINDINGS: The lungs are well expanded. Bilateral peribronchial cuffing is again seen suggesting reactive or small airways disease. No superimposed focal infiltrate, effusion, edema, or pneumothorax. Cardiac and mediastinal silhouettes are within normal limits for technique. No acute bony abnormality seen. XR/XR chest 1V IMPRESSION: Bilateral peribronchial cuffing again seen suggesting underlying reactive or small airways disease. Dictated By: Gen Arriaza MD Chronic Conditions Patient?s care impacted by: Other (FABIOLA, COPD) Critical Care Time Critical Care Time Critical Care Time: Yes Total Critical Care Time: 65 Attestation: I have personally provided critical care time exclusive of time spent on separately billable procedures. Time includes review of lab data, radiology results, discussion with consultants, and monitoring for potential decompensation. Intervention performed as documented. Discharge Plan Discharge Patient Disposition: Admitted As Inpatient Prescriptions: No Action ropinirole 1 mg Tablet 1 mg PO BEDTIME Qty: 30 0RF olanzapine 10 mg Tablet 10 mg PO BEDTIME Qty: 30 0RF clonidine HCl 0.2 mg Tablet 0.2 mg PO BEDTIME Qty: 30 0RF Protocol: Hold for SBP< HOLD for SBP < : 90 albuterol sulfate [Ventolin HFA] 90 mcg/actuation Hfa Aerosol Inhaler 2 puff inhalation Q4H PRN (Reason: shortness of breath or wheezing) Qty: 6.7 0RF tiotropium bromide [Spiriva with HandiHaler] 18 mcg Capsule, W/Inhalation Device 18 mcg inhalation RDAILY Qty: 20 0RF ferrous sulfate 324 mg (65 mg iron) Tablet,Delayed Release (Dr/Ec) 324 mg PO DAILY Qty: 30 0RF cetirizine 10 mg Tablet 10 mg PO DAILY PRN (Reason: Allergy Symptoms) nicotine (polacrilex) 2 mg Gum 2 mg BUCCAL Q2H PRN (Reason: Nicotine Cravings) melatonin 3 mg Tablet 3 mg PO BEDTIME valacyclovir 500 mg Tablet 500 mg PO DAILY nicotine 21 mg/24 hr Patch 24 Hour 1 patch TRANSDERMAL DAILY omeprazole 20 mg Capsule,Delayed Release(Dr/Ec) 20 mg PO DAILY@0630 lithium carbonate 450 mg tablet extended release 450 mg PO TID cyanocobalamin (vitamin B-12) [Vitamin B-12] 1,000 mcg tablet 1,000 mcg PO DAILY ipratropium-albuterol 0.5 mg-3 mg(2.5 mg base)/3 mL solution for nebulization 3 ml inhalation RQ6H PRN (Reason: Shortness Of Breath Or Wheezing) gabapentin 400 mg Capsule 400 mg PO TID doxycycline monohydrate 100 mg Capsule 100 mg PO BID Qty: 4 0RF Eliquis 5 mg Tablet See Rx Instructions .ROUTE .COMPLEX Qty: 74 0RF Rx Instructions: 2 tabs bid for 7 days, then 1 tab bid for life prednisone 20 mg Tablet 40 mg PO DAILY Qty: 4 0RF Interventions: [place]-Suicide Risk Severity Scale Last Done: 02/19/24 21:00 Print Language: Slovenian
[2024-02-19] MEDS: Albuterol Sulfate 5 MG, Albuterol/Iprat 2.5/0.5MG 3 ML 3 ML INHALE (19:25)
[2024-02-19 19:29] VITALS: PULSE 92; RESP 22; O2SAT 95
[2024-02-19 19:30] LABS: MANUAL DIFF FLAG NO
[2024-02-19 19:32] LABS: Basophils Absolute Auto 0.1 X10*3/uL (0.0-0.2); Basophils Percent Auto 0.7 % (0-2); Eosinophils Absolute Auto 0.2 X10*3/uL (0.0-0.4); Eosinophils Percent Auto 1.2 % (0-4); Hematocrit 44.7 % (37.0-47.0); Hemoglobin 14.3 g/dl (12.0-16.0); Imm Gran Abs Auto 0.07 X10*3/uL (0.00-0.03); Imm Gran Pct Auto 0.4 % (0.0-0.4); Lymphocytes Absolute Auto 2.9 X10*3/uL (1.2-4.9); Lymphocytes Percent Auto 15.8 % (20-40); Mean Corpuscular Hemoglobin 31.4 pg (27.0-33.0); Mean Corpuscular Volume 98.2 fL (80.0-98.0); Mean Platelet Volume 9.3 fL (9.4-12.3); Monocytes Absolute Auto 0.8 X10*3/uL (0.1-1.2); Monocytes Percent Auto 4.5 % (2-11); Neutrophils Absolute Auto 14.2 x10*3/uL (2.0-8.3); Neutrophils Percent Auto 77.4 % (45-73); Platelet Count 339 X10*3/uL (160-400); Red Blood Count 4.55 X10*6/uL (4.20-5.50); Red Cell Distribution Width 14.7 % (11.0-16.0); White Blood Count 18.3 X10*3/uL (4.8-10.8)
[2024-02-19 19:35] LABS: VBG Base Excess 8.1 mmol/L; VBG HCO3 32 mmol/L (22-26); VBG pCO2 44 mmHg; VBG pH 7.47 (7.32-7.43); VBG pO2 101 mmHg
[2024-02-19 19:36] LABS: Venous Blood Gas Refer to POC result
[2024-02-19 19:37] VITALS: BP 120/79; PULSE 90; RESP 28; O2SAT 93
[2024-02-19 19:52] LABS: Ethanol < 10 mg/dL
[2024-02-19 19:53] LABS: Salicylate < 5.0 mg/dL (15-30)
[2024-02-19 20:00] LABS: Troponin-I High Sensitivity < 2.7 ng/L (<3.5-17.0)
[2024-02-19 20:09] LABS: INTERNATIONAL NORM RATIO 0.8 (0.9-1.1); Prothrombin Time 9.5 SEC (11.1-13.3)
[2024-02-19 20:11] LABS: Partial Thromboplastin Time 30.6 SEC (26.0-36.8)
--- NOTE | 2024-02-19 20:30 | PC.NURSE ---
late entry- pt verbalized SI with plan pt reporting resp distress manish sanchez to bedside orders placed this rn attempted iv and blood work x 2 primer charger attempted iv and blood work x2 per dr hernandez iv, meds, and labs cancelled manish sanchez made aware
[2024-02-19 22:00] VITALS: BP 109/64; PULSE 95; RESP 27; TEMP 36.4; O2SAT 91
[2024-02-19 22:05] LABS: Alanine Aminotransferase 15 U/L (0-31); Albumin Level 3.8 g/dL (3.5-5.0); Alkaline Phosphatase 47 U/L (39-117); Anion Gap 12 (12-20); Aspartate Amino Transferase 11 U/L (5-31); Bilirubin Direct < 0.2 mg/dL (0.0-0.5); Bilirubin Total 0.2 mg/dL (0.0-1.0); Blood Urea Nitrogen 11 mg/dL (9-16); Calcium 9.2 mg/dL (8.4-10.2); Carbon Dioxide 25 mmol/L (22-29); Chloride 104 mmol/L (96-108); Creatinine Clr Calc Pharmacy 124.2; Estimated Glomerular Filt Rate > 60; Glucose Random 129 mg/dL (60-115); Lipase 27 U/L (8-78); Magnesium 1.9 mg/dL (1.6-2.6); Sodium 137 mmol/L (135-145); Total Protein 6.4 g/dL (6.5-8.0)
[2024-02-19 22:15] LABS: Influenza A PCR NEGATIVE (Negative); Influenza B PCR NEGATIVE (Negative); Resp Syncy Virus RNA Qual PCR NEGATIVE (Negative); SARS COV2 PCR INHOUSE NEGATIVE (Negative)
[2024-02-20] VITALS (18 sets, daily range): BP systolic 103–157; BP diastolic 52–85; PULSE 74–112; RESP 17–33; TEMP 36.3–36.7; O2SAT 88–97; BMI 45.1
--- NOTE | 2024-02-20 00:45 | PC.NURSE ---
Pt placed on CPAP
[2024-02-20] MEDS: methylPREDNISolone Sod Succ 125 MG/2 ML VIAL IVPUSH (02:50)
[2024-02-20 02:52] LABS: Venous Blood Gas Refer to POC result
[2024-02-20 02:55] LABS: VBG Base Excess 6.3 mmol/L; VBG HCO3 35 mmol/L (22-26); VBG pCO2 72 mmHg; VBG pO2 83 mmHg
[2024-02-20 03:00] LABS: Lactic Acid 1.2 mmol/L (0.5-2.0)
[2024-02-20] MEDS: Albuterol Sulfate 2.5 MG, Albuterol Sulfate (0.083%) 2.5 MG 5 MG INHALE (03:07)
[2024-02-20 06:10] LABS: Basophils Absolute Auto 0.1 X10*3/uL (0.0-0.2); Basophils Percent Auto 0.5 % (0-2); Eosinophils Absolute Auto 0.1 X10*3/uL (0.0-0.4); Eosinophils Percent Auto 0.3 % (0-4); Hematocrit 44.2 % (37.0-47.0); Hemoglobin 13.7 g/dl (12.0-16.0); Imm Gran Abs Auto 0.11 X10*3/uL (0.00-0.03); Imm Gran Pct Auto 0.6 % (0.0-0.4); Lymphocytes Absolute Auto 0.9 X10*3/uL (1.2-4.9); Lymphocytes Percent Auto 4.9 % (20-40); MANUAL DIFF FLAG SCAN; Mean Corpuscular Hemoglobin 31.1 pg (27.0-33.0); Mean Corpuscular Volume 100.2 fL (80.0-98.0); Mean Platelet Volume 9.7 fL (9.4-12.3); Monocytes Absolute Auto 0.4 X10*3/uL (0.1-1.2); Monocytes Percent Auto 2.1 % (2-11); Neutrophils Absolute Auto 17.1 x10*3/uL (2.0-8.3); Neutrophils Percent Auto 91.6 % (45-73); Platelet Count 321 X10*3/uL (160-400); Red Blood Count 4.41 X10*6/uL (4.20-5.50); SCAN SMEAR FLAG 1; White Blood Count 18.7 X10*3/uL (4.8-10.8)
[2024-02-20 06:26] LABS: Alanine Aminotransferase 14 U/L (0-31); Alkaline Phosphatase 56 U/L (39-117); Anion Gap 9 (12-20); Aspartate Amino Transferase 9 U/L (5-31); Bilirubin Total 0.4 mg/dL (0.0-1.0); Blood Urea Nitrogen 11 mg/dL (9-16); Calcium 9.6 mg/dL (8.4-10.2); Carbon Dioxide 32 mmol/L (22-29); Chloride 102 mmol/L (96-108); Creatinine Clr Calc Pharmacy 149.4; Estimated Glomerular Filt Rate > 60; Glucose Random 122 mg/dL (60-115); Magnesium 2.2 mg/dL (1.6-2.6); Potassium 4.5 mmol/L (3.3-5.1); Sodium 138 mmol/L (135-145); Total Protein 6.5 g/dL (6.5-8.0)
--- NOTE | 2024-02-20 06:59 | P.HPHOSP_ITS ---
History of Present Illness Date of Service: 02/20/24 Attending physician on admission: Chaya Fierro Chief Complaint: Shortness on breath Bhavana Garza is a 54 years old woman with past medical history significant for COPD/moderate persistent asthma, also on CPAP, morbid obesity and bipolar disorder was brought to the emergency department reporting suicidal ideation with plan to overdose on gabapentin for the last 4 days. She is also complaining of worsening shortness of breath, cough and wheezing. Denies fevers chills. She denied headache, chest pain, palpitations, abdominal pain, nausea or vomiting. She did not report any acute urinary symptoms. She is a tobacco smoker. Denied alcohol or illicit drug abuse. In the ED, she was found to have tachypnea. Oxygen saturation went down to 91 % on room air. There is no tachycardia or hypotension. She was placed on CPAP. Blood workup was remarkable for leukocytosis of 18.3. There is no lactic acidosis. There are no significant electrolyte imbalances. CO2 is elevated. These renal function normal. Viral testing is negative for influenza, COVID-19 and RSV. CXR showed bilateral peribronchial cuffing again seen suggesting underlying reactive or small airways disease. ED tx: Solu-Medrol 125 mg IV X2, albuterol neb X2 Review of Systems 2 Review of Systems: All 12 systems were reviewed and normal except as noted in HPI. 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 Drug abuse Bipolar I disorder Post traumatic stress disorder (PTSD) Tobacco use disorder FABIOLA (obstructive sleep apnea) Borderline personality disorder Intermittent explosive disorder Asthma exacerbation in COPD Herpes Tobacco use Bipolar disorder COPD (chronic obstructive pulmonary disease) Family History Mother COPD (chronic obstructive pulmonary disease) Surgical History History of ankle surgery History of back surgery Hx of cholecystectomy History of appendectomy Social History Household Members: None Household Members Other:: Senior Living in [place] Housing: Apartment Housing Other:: Sleeps on the couch at [facility] house Do you presently have visiting nurse or other home services: No Unable to assess alcohol history related to: Unknown Alcohol intake: current Alcohol intake frequency: holidays/special occasions only Alcohol type: hard liquor Comment: 1;1 DUE TO O2 Patient Tobacco Use Status: Current everyday Tobacco user Tobacco use type: Cigarette Cigarette Packs Per Day: 0.25 Years Smoked: 20 e-Cigarette/Vaping Use: Never Used Second Hand Smoke Exposure: No Substance Use Type: Crack/Cocaine Advance Directives: Yes Advance Directives on File: Yes Advance Directives Date on File: 06/17/22 Patient : No service: No Current occupational status: unemployed and disabled Sexual orientation: Straight/Heterosexual Meds Allergies Allergy/AdvReac Type Severity Reaction Status Date / Time aspirin Allergy Mild Anaphylaxis Verified 02/19/24 18:42 ampicillin Allergy Rash Verified 02/19/24 18:42 Penicillins Allergy Anaphylaxis Verified 02/19/24 18:42 latex AdvReac Rash Verified 02/19/24 18:42 Latex, Natural Rubber AdvReac Rash Verified 02/19/24 18:42 seafood AdvReac Anaphylaxis Verified 02/19/24 18:42 Sulfa (Sulfonamide AdvReac Hives Verified 02/19/24 18:42 Antibiotics) Active Medications: Current Medications Acetaminophen (Acetaminophen 325 Mg Tablet) 650 mg PO Q6H PRN PRN Reason: mild pain, headche and fever Albuterol/Ipratropium (Albuterol/Iprat 2.5/0.5mg 3 Ml Ampul.Neb) 3 ml INHALE RQ4H WHILE AWAKE [facility] Methylprednisolone Sodium Succinate (Methylprednisolone Sod Succ 40 Mg/Ml Vial) 40 mg IVPUSH BID [facility] Sodium Chloride (0.9 % Sodium Chloride Flush 3 Ml Syringe) 3 ml IVFLUSH QSHIFT [facility] Home Medications ?Medication ?Instructions ?Recorded ?Confirmed ?Last Taken ?Type lithium carbonate 450 mg 450 mg PO TID 05/14/23 02/05/24 02/05/24 08:00 History tablet,extended release cyanocobalamin (vitamin B-12) 1,000 mcg PO DAILY 06/11/23 02/05/24 02/05/24 08:00 History 1,000 mcg tablet (Vitamin B-12) ipratropium 0.5 mg-albuterol 3 mg 3 ml inhalation RQ6H PRN Shortness 06/11/23 02/05/24 10/23/23 History (2.5 mg base)/3 mL nebulization Of Breath Or Wheezing soln cetirizine 10 mg tablet 10 mg PO DAILY PRN Allergy Symptoms 12/19/23 02/05/24 Unknown History melatonin 3 mg tablet 3 mg PO BEDTIME 12/19/23 02/05/24 Unknown History nicotine (polacrilex) 2 mg gum 2 mg buccal Q2H PRN Nicotine 12/19/23 02/05/24 Unknown History Cravings valacyclovir 500 mg tablet 500 mg PO DAILY 12/19/23 02/05/24 02/05/24 08:00 History nicotine 21 mg/24 hr daily 1 patch transdermal DAILY 12/29/23 02/05/24 Unknown History transdermal patch omeprazole 20 mg capsule,delayed 20 mg PO DAILY@0630 12/29/23 02/05/24 02/05/24 08:00 History release acetaminophen 500 mg tablet (Pain 1,000 mg PO Q8H 02/20/24 Unknown History Relief Extra Strength (acetaminophen)) cholecalciferol (vitamin D3) 25 25 mcg PO DAILY 02/20/24 Unknown History mcg (1,000 unit) tablet (Vitamin D3) gabapentin 300 mg capsule 300 mg PO BID 02/20/24 Unknown History Physical Exam 2 Vital Signs and Narrative: Vital Signs: Last Vital Signs Temp 97.9 F 02/20/24 06:16 Pulse 85 02/20/24 06:16 Resp 27 H 02/20/24 06:16 BP 128/52 L 02/20/24 06:16 Pulse Ox 93 02/20/24 06:16 O2 Del Method CPAP 02/20/24 06:16 O2 Flow Rate 5 02/20/24 06:16 Oxygen Flow Rate 4 02/19/24 18:38 BMI result Body Mass Index 44.7 Constitutional - Awake and Alert, No apparent distress. Obese. On CPAP. HEENT - Pupils equally round. Normal sclerae. Heart - RRR. No murmur. Lungs - Normal lung expansion, Normal respiratory effort, No respiratory distress, Tachypnea, bilateral end expiratory wheezes. No crackles. No rhonchi. Gastrointestinal - NT / ND; +BS; No rebound or guarding - No CVA tenderness Extremities - no calf tenderness bilaterally, no swelling Skin - Warm/Dry Neurological - Alert & oriented x3. No focal weakness. Normal speech. Psychological - Depressed affect Results Labs 02/19/24 19:17 02/20/24 05:35 Labs: Laboratory Results - last 24 hr 02/19/24 02/19/24 02/19/24 19:17 19:28 21:19 MCV 98.2 H MCH 31.4 MCHC 32.0 RDW 14.7 Plt Count 339 MPV 9.3 L Immature Gran % (Auto) 0.4 Neut % (Auto) 77.4 H Lymph % (Auto) 15.8 L [place] % (Auto) 4.5 Eos % (Auto) 1.2 Baso % (Auto) 0.7 Lymph # (Auto) 2.9 [place] # (Auto) 0.8 Eos # (Auto) 0.2 Baso # (Auto) 0.1 Abs Immat Gran (auto) 0.07 H Absolute Neuts (auto) 14.2 H Absolute Nucleated RBC 0.000 Nucleated RBC % (auto) 0.0 PT 9.5 L INR 0.8 L APTT 30.6 VBG pH 7.47 H VBG pCO2 44 VBG pO2 101 VBG HCO3 32 H VBG O2 Saturation 100.0 VBG Base Excess 8.1 Anion Gap Estim Creat Clear Calc Estimated GFR Random Glucose Lactic Acid Calcium Magnesium Total Bilirubin Direct Bilirubin AST ALT Alkaline Phosphatase Troponin I High Sens < 2.7 Total Protein Albumin Lipase Salicylates < 5.0 L Ethyl Alcohol < 10 Influenza Type A (PCR) NEGATIVE Influenza Type B (PCR) NEGATIVE RSV RNA Qual (PCR) NEGATIVE SARS-CoV-2 RNA (RT-PCR) NEGATIVE 02/19/24 02/20/24 02/20/24 21:26 02:45 02:47 MCV MCH MCHC RDW Plt Count MPV Immature Gran % (Auto) Neut % (Auto) Lymph % (Auto) [place] % (Auto) Eos % (Auto) Baso % (Auto) Lymph # (Auto) [place] # (Auto) Eos # (Auto) Baso # (Auto) Abs Immat Gran (auto) Absolute Neuts (auto) Absolute Nucleated RBC Nucleated RBC % (auto) PT INR APTT VBG pH 7.30 L VBG pCO2 72 VBG pO2 83 VBG HCO3 35 H VBG O2 Saturation 99.0 VBG Base Excess 6.3 Anion Gap 12 Estim Creat Clear Calc 124.2 Estimated GFR > 60 Random Glucose 129 H Lactic Acid 1.2 Calcium 9.2 D Magnesium 1.9 Total Bilirubin 0.2 Direct Bilirubin < 0.2 AST 11 ALT 15 Alkaline Phosphatase 47 Troponin I High Sens Total Protein 6.4 L Albumin 3.8 Lipase 27 Salicylates Ethyl Alcohol Influenza Type A (PCR) Influenza Type B (PCR) RSV RNA Qual (PCR) SARS-CoV-2 RNA (RT-PCR) 02/20/24 05:35 MCV MCH MCHC RDW Plt Count MPV Immature Gran % (Auto) Neut % (Auto) Lymph % (Auto) [place] % (Auto) Eos % (Auto) Baso % (Auto) Lymph # (Auto) [place] # (Auto) Eos # (Auto) Baso # (Auto) Abs Immat Gran (auto) Absolute Neuts (auto) Absolute Nucleated RBC Nucleated RBC % (auto) PT INR APTT VBG pH VBG pCO2 VBG pO2 VBG HCO3 VBG O2 Saturation VBG Base Excess Anion Gap 9 L Estim Creat Clear Calc 149.4 Estimated GFR > 60 Random Glucose 122 H Lactic Acid Calcium 9.6 Magnesium 2.2 Total Bilirubin 0.4 Direct Bilirubin AST 9 ALT 14 Alkaline Phosphatase 56 Troponin I High Sens Total Protein 6.5 Albumin 4.0 Lipase Salicylates Ethyl Alcohol Influenza Type A (PCR) Influenza Type B (PCR) RSV RNA Qual (PCR) SARS-CoV-2 RNA (RT-PCR) Imaging Radiologist's Impressions: Impressions Chest X-Ray 02/19/24 19:21 IMPRESSION: Bilateral peribronchial cuffing again seen suggesting underlying reactive or small airways disease. 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 Admit to hospitalist service. Continue CPAP. Supplemental oxygen to keep O2 sats >90%. Continue bronchodilator therapy and IV steroids. Patient was advised to stop tobacco smoking. * Suicide ideation. Psychiatric consult. * History of bipolar disorder, anxiety, PTSD, pseudoseizures and borderline personality disorder. Treatment by psychiatrist. * Tobacco use disorder. Tobacco cessation education. * Morbid obesity. BMI 44.7 kg/m2. Weight loss. * Hx of PE. Continue Eliquis. * Hx of parotid cancer s/p excision and radiation. * Hx of illicit drug use. Check urine drug screen. DVT prophylaxis: Eliquis. Code status: Full Patient will need hospitalization personally 2 midnights for hypoxic respiratory failure treatment with supplemental oxygen, bronchodilator therapy and IV steroids. She will also need close monitoring of vital signs and evaluation by psychiatric service for suicide ideation evaluation. Quality Stroke Does the patient have a stroke diagnosis?: No VTE Prior VTE?: No VTE Risk Level:: Medical - moderate - high VTE Device Contraindication: Treatment Not Indicated VTE Drug Contraindication: N/A - Med Ordered
--- NOTE | 2024-02-20 07:33 | PM.EVENT ---
Event Note Date of Service: 02/20/24 Time Spent With Patient Time: Total time managing care of this patient today ____ minutes.
[2024-02-20 08:03] LABS: SLIDE REVIEW VERIFIED
[2024-02-20] MEDS: Albuterol/Iprat 2.5/0.5MG 3 ML AMPUL.NEB INHALE ×4 (08:11→19:49)
--- NOTE | 2024-02-20 08:59 | PHA.MEDREC ---
Pharmacy Consult ? Medication Reconciliation Pharmacy has completed the medication reconciliation, pt confirmed all medications and stated she last took them the morning before of the day she got here.
[2024-02-20] MEDS: methylPREDNISolone Sod Succ 40 MG/ML VIAL IVPUSH ×2 (10:35→20:59)
[2024-02-20] MEDS: Apixaban 5 MG TABLET PO ×2 (10:36→20:58)
--- NOTE | 2024-02-20 10:36 | MHC.CM.PN ---
Pt lives with her significant other, Francisco J Miller, he will be added to her contact list. She is eligible to 12 hours a week [employer] through [facility], and is awaiting assignment of [employer], in the meantime, her S.O. assists her. She confirmed her HCP is Samson Zhu, this is on file. She confirmed that PCP is Mike Malone, and she has a psych provider, first name is Radha. She uses a cane, used to have a walker, but it is broken. CM will check with PT to see if they can assist her in getting a walker if she needs it. Pt will need shuttle transport home at [place]. CM will follow and with [place].
[2024-02-20] MEDS: 0.9 % Sodium Chloride Flush 3 ML SYRINGE IVFLUSH ×3 (10:38→20:59)
[2024-02-20] MEDS: Cholecalciferol (Vitamin D3) 25 MCG TABLET PO (11:07)
[2024-02-20 11:09] LABS: Appearance Urine Clear; Color Urine Yellow; Glucose Urine UA Negative (Negative); Leukocyte Esterase Urine Negative (Negative); Nitrite Urine Negative (Negative); PH 6.5 (5.0-9.0); Urine Blood Negative (Negative); Urine Ketones Negative (Negative); Urine Protein Negative (Neg-Trace)
[2024-02-20 11:17] LABS: Amphetamine Screen Urine Not Detected (Not Detect); Barbiturates, Urine Not Detected (Not Detect); Benzodiazepines Screen Urine Not Detected (Not Detect); Buprenorphine Scr Not Detected (Not Detect); Cannabinoid Screen Urine Not Detected (Not Detect); Cocaine Screen Urine Not Detected (Not Detect); Fentanyl, urine Not Detected (Not Detect); Methadone Screen, Urine Not Detected (Not Detect); Opiate Screen Urine Not Detected (Not Detect); Oxycodone Screen Urine Not Detected (Not Detect); Phencyclidine Screen Urine Not Detected (Not Detect)
--- NOTE | 2024-02-20 12:45 | PM.EVENT ---
Event Note Date of Service: 02/20/24 Event Note: 54-year-old female with past medical history of COPD/moderate persistent asthma on CPAP, morbid obesity, bipolar disorder presented to ED due to suicidal ideation with plan to overdose on gabapentin due to symptoms of shortness of breath, cough and wheezing in ED noted to have finger oximetry of 90%, viral studies negative, chest x-ray showed bilateral peribronchial coughing suggesting underlying reactive small airway disease, elevated WBC count likely reactive versus recent use of prednisone. This morning patient feels better denies suicidal ideation, shortness of breath is improving. On examination awake alert, no acute distress Lungs coarse breath sound no wheeze, no crackles Acute on chronic hypoxic respiratory failure due to acute exacerbation COPD/asthma continue DuoNeb updraft, IV steroids, continue supportive care, add azithromycin Obstructive sleep apnea continue CPAP Suicidal ideation obtain crisis eval prior to discharge Tobacco use disorder counseling done History of bipolar disorder/anxiety/PTSD/borderline personality continue home medications Morbid obesity recommend low-calorie diet and weight loss History of PE continue Eliquis DVT prophylaxis on Eliquis Full code Patient will need hospitalization personally 2 midnights for hypoxic respiratory failure treatment with supplemental oxygen, bronchodilator therapy and IV steroids. She will also need close monitoring of vital signs and evaluation by psychiatric service for suicide ideation evaluation. Time Spent With Patient Time: Total time managing care of this patient today ____ minutes.
[2024-02-20] MEDS: Azithromycin 500 MG TABLET PO (13:57)
[2024-02-20] MEDS: Lithium Carbonate ER 450 MG TABLET.ER PO ×2 (13:57→20:58)
[2024-02-20] MEDS: Gabapentin 300 MG CAPSULE PO ×2 (13:57→20:58)
[2024-02-20] MEDS: guaiFENesin DM 100/10/5 ML 5 ML SYRUP 10 ML PO ×2 (14:33→20:58)
[2024-02-20] MEDS: Melatonin 3 MG TABLET PO (20:58)
[2024-02-20] MEDS: OLANZapine 10 MG TABLET PO (20:58)
[2024-02-20] MEDS: rOPINIRole HCL 1 MG TABLET PO (20:58)
[2024-02-20] MEDS: cloNIDine HCL 0.2 MG TABLET PO (21:01)
--- NOTE | 2024-02-20 21:38 | PM.EVENT ---
Event Note Date of Service: 02/20/24 Event Note: Nurse informed Gram-positive cocci in clusters seen in anaerobic blood culture. Will initiate empiric IV antibiotic Time Spent With Patient Time: Total time managing care of this patient today ____ minutes.
[2024-02-21] VITALS (8 sets, daily range): BP systolic 102–127; BP diastolic 62–70; PULSE 70–79; RESP 16–20; TEMP 36.4–36.6; O2SAT 90–94
[2024-02-21] MEDS: Clindamycin Phosphate/D5W 600 MG/50 ML PIGGYBACK 100 MG IV ×2 (01:16→06:09)
[2024-02-21] MEDS: Omeprazole 20 MG CAPSULE.DR PO (06:09)
[2024-02-21] MEDS: Albuterol/Iprat 2.5/0.5MG 3 ML AMPUL.NEB INHALE ×3 (07:35→19:38)
[2024-02-21] MEDS: Gabapentin 300 MG CAPSULE PO ×3 (09:54→20:56)
[2024-02-21] MEDS: valACYclovir HCL 500 MG TABLET PO (09:54)
[2024-02-21] MEDS: Cyanocobalamin (Vitamin B-12) 1,000 MCG TABLET 1000 MCG PO (09:54)
[2024-02-21] MEDS: Cholecalciferol (Vitamin D3) 25 MCG TABLET PO (09:54)
[2024-02-21] MEDS: Apixaban 5 MG TABLET PO ×2 (09:55→20:56)
[2024-02-21] MEDS: Lithium Carbonate ER 450 MG TABLET.ER PO ×3 (09:55→20:55)
[2024-02-21] MEDS: 0.9 % Sodium Chloride Flush 3 ML SYRINGE IVFLUSH ×3 (09:55→20:56)
[2024-02-21] MEDS: methylPREDNISolone Sod Succ 40 MG/ML VIAL IVPUSH ×2 (09:55→20:56)
[2024-02-21] MEDS: Ferrous Sulfate 324 MG TABLET.DR PO (09:55)
[2024-02-21] MEDS: guaiFENesin DM 100/10/5 ML 5 ML SYRUP 10 ML PO ×2 (10:18→18:31)
[2024-02-21] MEDS: Azithromycin 500 MG TABLET PO (13:27)
--- NOTE | 2024-02-21 13:33 | HO.PM.IMPN ---
Subjective Subjective Date of Service: 02/21/24 Interval History: Being followed for acute hypoxic respiratory failure due to COPD exacerbation and suicidal ideation Patient feeling better less shortness of breath, persistent cough productive of yellow phlegm, no fevers, no chills, requesting for Nicorette patch smokes 1-2 packs per day, requesting to be discharged home denies suicidal ideation. Review of Systems All other system reviewed and negative Physical Exam Vital Signs: Vital Signs: Last Vital Signs Temp 97.8 F 02/21/24 11:01 Pulse 79 02/21/24 11:01 Resp 20 02/21/24 11:01 BP 112/64 02/21/24 11:01 Pulse Ox 94 02/21/24 11:01 O2 Del Method Nasal Cannula 02/21/24 11:01 O2 Flow Rate 3 02/21/24 11:01 Oxygen Flow Rate 4 02/19/24 18:38 BMI result Body Mass Index 45.1 Const: Other: Gen: Awake alert x3, in no acute distress HEENT: sclera anicteric, moist mucus membranes Neck: supple Lungs: Coarse breath sounds, few scattered wheeze Heart: regular rate and rhythm, no murmurs Abd: soft, non-tender, non-distended, obese Ext: no edema Skin: warm/well-perfused/no rash Neuro: alert and oriented x3, no focal findings Psych: appropriate affect Objective Data Active Medications Acetaminophen (Acetaminophen 325 Mg Tablet) 650 mg PO Q6H PRN PRN Reason: mild pain, headche and fever Albuterol/Ipratropium (Albuterol/Iprat 2.5/0.5mg 3 Ml Ampul.Neb) 3 ml INHALE RQ4H WHILE AWAKE [facility] Last Admin: 02/21/24 11:04 Dose: Not Given Documented By: ANNA Non-Admin Reason: Pt states she is fine, will call if needs it. Apixaban (Apixaban 5 Mg Tablet) 5 mg PO BID [facility] Last Admin: 02/21/24 09:55 Dose: 5 mg Documented By: SEA Azithromycin (Azithromycin 500 Mg Tablet) 500 mg PO Q24H [facility] Last Admin: 02/21/24 13:27 Dose: 500 mg Documented By: SEA Clonidine HCl (Clonidine Hcl 0.2 Mg Tablet) 0.2 mg PO BEDTIME [facility]; Protocol Last Admin: 02/20/24 21:01 Dose: 0.2 mg Documented By: AILYN Cyanocobalamin (Cyanocobalamin (Vitamin B-12) 1,000 Mcg Tablet) 1,000 mcg PO DAILY [facility] Last Admin: 02/21/24 09:54 Dose: 1,000 mcg Documented By: SEA Ferrous Sulfate (Ferrous Sulfate 324 Mg Tablet.) 324 mg PO DAILY [facility] Last Admin: 02/21/24 09:55 Dose: 324 mg Documented By: SEA Gabapentin (Gabapentin 300 Mg Capsule) 300 mg PO TID TEJA Last Admin: 02/21/24 09:54 Dose: 300 mg Documented By: SEA Guaifenesin/Dextromethorphan (Guaifenesin Dm 100/10/5 Ml 5 Ml Syrup) 10 ml PO Q6H PRN PRN Reason: cough Last Admin: 02/21/24 10:18 Dose: 10 ml Documented By: SEA Clindamycin Phosphate (Cleocin) 600 mg in 50 mls @ 100 mls/hr IV Q8H [facility] Last Infusion: 02/21/24 06:45 Dose: Infused Documented By: DEMARCO [place] Carbonate ([place] Carbonate Er 450 Mg Tablet.Er) 450 mg PO TID [facility] Last Admin: 02/21/24 09:55 Dose: 450 mg Documented By: SEA Melatonin (Melatonin 3 Mg Tablet) 3 mg PO BEDTIME [facility] Last Admin: 02/20/24 20:58 Dose: 3 mg Documented By: AILYN Methylprednisolone Sodium Succinate (Methylprednisolone Sod Succ 40 Mg/Ml Vial) 40 mg IVPUSH BID [facility] Last Admin: 02/21/24 09:55 Dose: 40 mg Documented By: SEA Nicotine (Nicotine 21 Mg Patch.Td24) 21 mg TRANSDERMA DAILY [facility] Olanzapine (Olanzapine 10 Mg Tablet) 10 mg PO BEDTIME [facility] Last Admin: 02/20/24 20:58 Dose: 10 mg Documented By: AILYN Omeprazole (Omeprazole 20 Mg Capsule.) 20 mg PO DAILY@0630 [facility] Last Admin: 02/21/24 06:09 Dose: 20 mg Documented By: DEMARCO Ropinirole HCl (Ropinirole Hcl 1 Mg Tablet) 1 mg PO BEDTIME [facility] Last Admin: 02/20/24 20:58 Dose: 1 mg Documented By: AILYN Sodium Chloride (0.9 % Sodium Chloride Flush 3 Ml Syringe) 3 ml IVFLUSH QSHIFT [facility] Last Admin: 02/21/24 09:55 Dose: 3 ml Documented By: SEA Valacyclovir HCl (Valacyclovir Hcl 500 Mg Tablet) 500 mg PO DAILY [facility] Last Admin: 02/21/24 09:54 Dose: 500 mg Documented By: SEA Vitamin D (Cholecalciferol (Vitamin D3) 25 Mcg Tablet) 25 mcg PO DAILY [facility] Last Admin: 02/21/24 09:54 Dose: 25 mcg Documented By: SEA Labs 02/20/24 05:35 02/20/24 05:35 Microbiology Microbiology Results: Microbiology 02/20/24 04:38 Blood Culture - Final Blood - Venous Coag negative Staphylococcus 02/20/24 02:45 Blood Culture - Preliminary Blood - Venous No growth after 24 hours. Assessment and Plan (1) Suicidal ideation: Status: Acute (2) COPD exacerbation: Status: Acute (3) Morbid obesity: Status: Acute Plan 54-year-old female with past medical history of COPD/moderate persistent asthma on CPAP, morbid obesity, bipolar disorder presented to ED due to suicidal ideation with plan to overdose on gabapentin due to symptoms of shortness of breath, cough and wheezing in ED noted to have finger oximetry of 90%, viral studies negative, chest x-ray showed bilateral peribronchial coughing suggesting underlying reactive small airway disease, elevated WBC count likely reactive versus recent use of prednisone. Acute on chronic hypoxic respiratory failure due to acute exacerbation COPD/mild to moderate persistent asthma continue DuoNeb updraft, wean IV steroids, continue supportive care, azithromycin Blood cultures 1/2 grew Gram-positive cocci started on IV clindamycin overnight, no skin infections noted Follow final sensitivities. Obstructive sleep apnea: continue CPAP Suicidal ideation obtain crisis eval prior to discharge Tobacco use disorder counseling done, will place on nicotine patch 21 mg daily History of bipolar disorder/anxiety/PTSD/borderline personality continue home medications Morbid obesity recommend low-calorie diet and weight loss History of PE continue Eliquis DVT prophylaxis on Eliquis Full code Patient need continued inpatient stay for treatment of acute on chronic hypoxic respiratory failure due to COPD exacerbation need IV steroids, Gram-positive cocci bacteremia/ as well as suicidal ideation Quality Stroke Does the patient have a stroke diagnosis?: No VTE Prior VTE?: No VTE Risk Level:: Medical - moderate - high VTE Device Contraindication: Treatment Not Indicated VTE Drug Contraindication: N/A - Med Ordered
[2024-02-21] MEDS: Nicotine 21 MG PATCH.TD24 TRANSDERMA (15:14)
[2024-02-21] MEDS: Acetaminophen 325 MG TABLET 650 MG PO (15:23)
[2024-02-21] MEDS: Melatonin 3 MG TABLET PO (20:55)
[2024-02-21] MEDS: rOPINIRole HCL 1 MG TABLET PO (20:55)
[2024-02-21] MEDS: cloNIDine HCL 0.2 MG TABLET PO (20:55)
[2024-02-21] MEDS: OLANZapine 10 MG TABLET PO (20:55)
[2024-02-22] VITALS: BP 106/62; PULSE 74; RESP 20; TEMP 36.2; O2SAT 94
[2024-02-22] MEDS: guaiFENesin DM 100/10/5 ML 5 ML SYRUP 10 ML PO ×2 (00:35→08:02)
[2024-02-22 03:49] VITALS: BP 102/62; PULSE 71; RESP 20; TEMP 36.1; O2SAT 94
[2024-02-22] MEDS: Omeprazole 20 MG CAPSULE.DR PO (04:59)
[2024-02-22 07:27] VITALS: PULSE 71; RESP 18; O2SAT 95
[2024-02-22] MEDS: Albuterol/Iprat 2.5/0.5MG 3 ML AMPUL.NEB INHALE (07:27)
[2024-02-22 07:55] VITALS: BP 119/75; PULSE 75; RESP 20; TEMP 36.4; O2SAT 92
[2024-02-22] MEDS: Cyanocobalamin (Vitamin B-12) 1,000 MCG TABLET 1000 MCG PO (08:02)
[2024-02-22] MEDS: Apixaban 5 MG TABLET PO (08:02)
[2024-02-22] MEDS: valACYclovir HCL 500 MG TABLET PO (08:02)
[2024-02-22] MEDS: Cholecalciferol (Vitamin D3) 25 MCG TABLET PO (08:02)
[2024-02-22] MEDS: Lithium Carbonate ER 450 MG TABLET.ER PO (08:02)
[2024-02-22] MEDS: Gabapentin 300 MG CAPSULE PO (08:02)
[2024-02-22] MEDS: Nicotine 21 MG PATCH.TD24 TRANSDERMA (08:02)
[2024-02-22] MEDS: Ferrous Sulfate 324 MG TABLET.DR PO (08:02)
[2024-02-22] MEDS: methylPREDNISolone Sod Succ 40 MG/ML VIAL IVPUSH (08:02)
[2024-02-22] MEDS: 0.9 % Sodium Chloride Flush 3 ML SYRINGE IVFLUSH (08:10)
--- NOTE | 2024-02-22 09:52 | MHC.CM.PN ---
Pt has been medically cleared for DC, she will go home via [facility] shuttle, and resume her prior services.
--- NOTE | 2024-02-22 13:03 | P.DS_ITS ---
DS: Providers Provider Date of Service: 02/22/24 Date of admission: 02/20/24 04:07 Primary care physician: Mike Malone MD Consults: 02/19/24 18:59 Consult to Care Team Stat Comment: Reason for consultation: suicidal ideation 02/22/24 07:29 Consult to Care Team Routine Comment: Reason for consultation: medically cleared / DS: Diagnosis Discharge Diagnosis (1) Suicidal ideation: Status: Acute (2) COPD exacerbation: Status: Acute (3) Morbid obesity: Status: Acute DS: Summary Hospital Course Hospital Course: Date of Service: 02/20/24 Attending physician on admission: Chaya Fierro Chief Complaint: Shortness on breath Bhavana Garza is a 54 years old woman with past medical history significant for COPD/moderate persistent asthma, also on CPAP, morbid obesity and bipolar disorder was brought to the emergency department reporting suicidal ideation with plan to overdose on gabapentin for the last 4 days. She is also complaining of worsening shortness of breath, cough and wheezing. Denies fevers chills. She denied headache, chest pain, palpitations, abdominal pain, nausea or vomiting. She did not report any acute urinary symptoms. She is a tobacco smoker. Denied alcohol or illicit drug abuse. In the ED, she was found to have tachypnea. Oxygen saturation went down to 91 % on room air. There is no tachycardia or hypotension. She was placed on CPAP. Blood workup was remarkable for leukocytosis of 18.3. There is no lactic acidosis. There are no significant electrolyte imbalances. CO2 is elevated. These renal function normal. Viral testing is negative for influenza, COVID-19 and RSV. CXR showed bilateral peribronchial cuffing again seen suggesting underlying reactive or small airways disease. ED tx: Solu-Medrol 125 mg IV X2, albuterol neb X2 Hospital course; 54-year-old female with past medical history of COPD/moderate persistent asthma on CPAP, morbid obesity, bipolar disorder presented to ED due to suicidal ideation with plan to overdose on gabapentin due to symptoms of shortness of breath, cough and wheezing in ED noted to have finger oximetry of 90%, viral studies negative, chest x-ray showed bilateral peribronchial coughing suggesting underlying reactive small airway disease, elevated WBC count likely reactive versus recent use of prednisone, patient admitted to medical floor with a diagnosis of Acute on chronic hypoxic respiratory failure due to acute exacerbation COPD/mild to moderate persistent asthma And treated with continue DuoNeb updraft, IV steroids, azithromycin,Blood cultures 1/2 grew Gram-positive cocci started on IV clindamycin however final sensitivity showed coagulase-negative Staphylococcus unlikely pathogen therefore IV antibiotics were discontinued, patient responded rapidly to above treatment, currently oxygenating 93 94% on room air therefore being discharged home with strong recommendation to abstain from smoking, counseling provided she is being discharged home with nicotine patch she is also recommended compliance with CPAP and recommended to resume home inhalers and to take 5 more days of by mouth prednisone. In regard to suicidal ideation patient evaluated by crisis team and has been cleared discharge, patient at present denies suicidal ideation, she felt suicidal due to symptoms of shortness of breath not improving with home inhalers. Obstructive sleep apnea: continue CPAP Tobacco use disorder counseling done, continue nicotine patch 21 mg daily History of bipolar disorder/anxiety/PTSD/borderline personality continue home medications Morbid obesity recommend low-calorie diet and weight loss History of PE continue Eliquis Time Attestation Discharge Coordination Time (in mins): 36 Quality: Safe Use of Opioids Does Pt have an Active Cancer Diagnosis on the Problem List?: No Quality: Stroke Does the patient have a stroke diagnosis?: No Physical Exam Vital Signs: Vital Signs: Last Vital Signs Temp 97.6 F 02/22/24 07:55 Pulse 75 02/22/24 07:55 Resp 20 02/22/24 07:55 BP 119/75 02/22/24 07:55 Pulse Ox 92 02/22/24 07:55 O2 Del Method Room Air 02/22/24 07:55 O2 Flow Rate 2 02/22/24 03:49 Oxygen Flow Rate 4 02/19/24 18:38 BMI result Body Mass Index 45.1 Const: Other: Gen: Awake alert x3, in no acute distress HEENT: sclera anicteric, moist mucus membranes Neck: supple Lungs: Coarse breath sounds, no wheeze Heart: regular rate and rhythm, no murmurs Abd: soft, non-tender, non-distended, obese Ext: no edema Skin: warm/well-perfused/no rash Neuro: alert and oriented x3, no focal findings Psych: appropriate affect DS: Data Data Completed and Pending Completed studies during hospitalization [Text1]: Procedures Assistance with Respiratory Ventilation, Less than 24 Consecutive Hours, Continuous Positive Airway Pressure (02/05/24) Drainage of Left Parotid Gland, Percutaneous Approach, Diagnostic (11/09/21) Drainage of Neck, Percutaneous Approach, Diagnostic (03/17/22) Excision of Left Parotid Gland, Percutaneous Approach, Diagnostic (03/17/22) Introduction of Remdesivir Anti-infective into Peripheral Vein, Percutaneous Approach, [employer] (06/01/22) Labs on day of discharge: Preliminary micro results at discharge 02/20/24 02:45 Blood Culture - Preliminary Blood - Venous No growth after 48 hours. Discharge Plan Discharge Anticipated Discharge Date/Time: 02/22/24 09:29 Patient Disposition: Home Health Service Discharge Diagnosis: Acute on chronic hypoxic resp failure due to COPD/asthma overlap syndrome Suicidal ideation Referrals: Mike Malone MD [Primary Care Provider] - 1 Week Discharge Medications: New nicotine 21 mg/24 hr Patch 24 Hour 21 mg transdermal DAILY Qty: 28 0RF prednisone 20 mg tablet 20 mg PO DAILY Qty: 5 0RF Continued ropinirole 1 mg Tablet 1 mg PO BEDTIME Qty: 30 0RF olanzapine 10 mg Tablet 10 mg PO BEDTIME Qty: 30 0RF clonidine HCl 0.2 mg Tablet 0.2 mg PO BEDTIME Qty: 30 0RF Protocol: Hold for SBP< HOLD for SBP < : 90 albuterol sulfate [Ventolin HFA] 90 mcg/actuation Hfa Aerosol Inhaler 2 puff inhalation Q4H PRN (Reason: shortness of breath or wheezing) Qty: 6.7 0RF tiotropium bromide [Spiriva with HandiHaler] 18 mcg Capsule, W/Inhalation Device 18 mcg inhalation RDAILY Qty: 20 0RF ferrous sulfate 324 mg (65 mg iron) Tablet,Delayed Release (Dr/Ec) 324 mg PO DAILY Qty: 30 0RF cetirizine 10 mg Tablet 10 mg PO DAILY PRN (Reason: Allergy Symptoms) melatonin 3 mg Tablet 3 mg PO BEDTIME valacyclovir 500 mg Tablet 500 mg PO DAILY omeprazole 20 mg Capsule,Delayed Release(Dr/Ec) 20 mg PO DAILY@0630 acetaminophen [Pain Relief ES (acetaminophen)] 500 mg tablet 1,000 mg PO Q8H PRN (Reason: Pain) gabapentin 300 mg capsule 300 mg PO TID cholecalciferol (vitamin D3) [Vitamin D3] 25 mcg (1,000 unit) tablet 25 mcg PO DAILY Eliquis 5 mg Tablet 5 mg PO BID lithium carbonate 450 mg tablet extended release 450 mg PO TID cyanocobalamin (vitamin B-12) [Vitamin B-12] 1,000 mcg tablet 1,000 mcg PO DAILY ipratropium-albuterol 0.5 mg-3 mg(2.5 mg base)/3 mL solution for nebulization 3 ml inhalation RQ6H PRN (Reason: Shortness Of Breath Or Wheezing) Discharge Orders: Discharge Order (Routine); Ordered 02/22/24 Ordered By: Eric Cavazos Diet: Advance to usual diet Activity on Discharge: As tolerated Stand Alone Forms: Patient Portal Discharge page Print Language: Greenlandic Care Plan Goals: Acute on chronic hypoxic respiratory failure resolved Recommend to use oxygen 3 L as needed at home Continue CPAP Take prednisone 20 mg daily for 5 days Use updraft treatment 4 times a day scheduled for next 2-3 days and then as needed Health Concerns: Tobacco use disorder strongly advised to abstain from smoking use nicotine patch 21 mg daily Obstructive sleep apnea continue CPAP Plan of Treatment: Outpatient follow-up with primary care physician call for appointment Assessment: As above Discharge Date/Time: 02/22/24 10:18
== END 2024-02-22 10:18 | disposition home health service (06) | DRG 753 ==
LOC: HO.ED 02-20 03:38 → HO.EDOVER 02-20 04:16 → HO.IMC 02-20 07:45
PROVIDERS: Internal Medicine; Physician Assistant Medical; Admitting Provider Internal Medicine; Emergency Provider Emergency Medicine Emergency Medical Services; PCP Internal Medicine; Visit Provider Hospitalist
DX: F31.9 Bipolar disorder, unspecified (principal); J96.21 Acute and chronic respiratory failure with hypoxia; R45.851 Suicidal ideations; J44.1 Chronic obstructive pulmonary disease with (acute) exacerbation; J45.40 Moderate persistent asthma, uncomplicated; Z99.81 Dependence on supplemental oxygen; Z68.41 Body mass index [BMI] 40.0-44.9, adult; J44.0 Chronic obstructive pulmonary disease with (acute) lower respiratory infection; J20.9 Acute bronchitis, unspecified; E66.2 Morbid (severe) obesity with alveolar hypoventilation; F17.210 Nicotine dependence, cigarettes, uncomplicated; Z71.6 Tobacco abuse counseling; Z20.822 Contact with and (suspected) exposure to COVID-19; Z86.711 Personal history of pulmonary embolism; Z85.858 Personal history of malignant neoplasm of other endocrine glands; Z91.040 Latex allergy status; Z79.01 Long term (current) use of anticoagulants; Z79.899 Other long term (current) drug therapy
CPT/HCPCS: 0241U; 36415; 71045; 80048; 80053; 80076; 80179; 80307; 81003; 82803; 83605; 83690; 83735; 84484; 85025; 85610; 85730; 87040; 87147; 87205; 92950; 93005; 94640; 99285; J0736; J2919; S9485

== ENCOUNTER → 2024-02-19 18:44 | Outpatient (BNV) | payer MEDICAID, SELFPAY | PROVIDERS: Admitting Provider Internal Medicine; Emergency Provider Emergency Medicine Emergency Medical Services; PCP Internal Medicine; Visit Provider Internal Medicine Cardiovascular Disease | DX: R06.02 Shortness of breath (principal) | CPT/HCPCS: 93010 ==

== ENCOUNTER → 2024-02-20 04:07 | Outpatient (BNV) | payer MEDICAID, SELFPAY | PROVIDERS: Admitting Provider Internal Medicine; Emergency Provider Emergency Medicine Emergency Medical Services; PCP Internal Medicine; Visit Provider Internal Medicine | DX: R45.851 Suicidal ideations (principal); J44.1 Chronic obstructive pulmonary disease with (acute) exacerbation; E66.01 Morbid (severe) obesity due to excess calories | CPT/HCPCS: 99223; 99233; 99239; 99499 ==

== ENCOUNTER 2024-02-27 07:51 | Emergency (ER) | payer OTHER, SELFPAY ==
--- NOTE | ~2024-02-27 | XR_ITS ---
EXAMINATION: XR CHEST CLINICAL INFORMATION: Wheezing. Crackles. COMPARISON: Most recent chest radiograph dated 02/19/2024. TECHNIQUE: 2 views of the chest were obtained. FINDINGS: New patchy right middle lobe airspace opacities, not seen on the prior chest radiograph which could indicate early pneumonia. No pleural effusion or pneumothorax. Stable cardiac mediastinal silhouette. XR/XR chest 2V IMPRESSION: New patchy right middle lobe airspace opacities, not seen on the prior chest radiograph which could indicate early pneumonia.
[2024-02-27 08:03] VITALS: BP 180/110; PULSE 94; O2SAT 94
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
[2024-02-27 08:08] VITALS: BP 140/80; PULSE 91; RESP 20; TEMP 36.7; O2SAT 95; BMI 45.2
[2024-02-27 08:28] LABS: Appearance Urine Clear; Color Urine Yellow; Glucose Urine UA Negative (Negative); Leukocyte Esterase Urine Negative (Negative); Nitrite Urine Negative (Negative); Specific Gravity - Urine <= 1.005 (1.005-1.025); Urine Blood Negative (Negative); Urine Ketones Negative (Negative); Urine Protein Negative (Neg-Trace)
[2024-02-27 08:30] LABS: UPreg QC Valid YES; Urine Pregnancy NEGATIVE (NEGATIVE)
[2024-02-27] MEDS: Albuterol Sulfate 2.5 MG, Albuterol/Iprat 2.5/0.5MG 3 ML 3 ML INHALE (08:54)
[2024-02-27 08:55] VITALS: PULSE 102; RESP 18; O2SAT 94
[2024-02-27 08:59] LABS: MANUAL DIFF FLAG NO
[2024-02-27 09:02] LABS: Basophils Absolute Auto 0.1 X10*3/uL (0.0-0.2); Basophils Percent Auto 0.8 % (0-2); Eosinophils Absolute Auto 0.1 X10*3/uL (0.0-0.4); Eosinophils Percent Auto 0.7 % (0-4); Hematocrit 44.5 % (37.0-47.0); Hemoglobin 14.2 g/dl (12.0-16.0); Imm Gran Abs Auto 0.06 X10*3/uL (0.00-0.03); Imm Gran Pct Auto 0.6 % (0.0-0.4); Lymphocytes Absolute Auto 1.2 X10*3/uL (1.2-4.9); Lymphocytes Percent Auto 12.3 % (20-40); Mean Corpuscular HGB Conc 31.9 g/dl (31.0-35.0); Mean Corpuscular Hemoglobin 31.6 pg (27.0-33.0); Mean Corpuscular Volume 99.1 fL (80.0-98.0); Mean Platelet Volume 9.4 fL (9.4-12.3); Monocytes Absolute Auto 0.2 X10*3/uL (0.1-1.2); Monocytes Percent Auto 1.5 % (2-11); Neutrophils Absolute Auto 8.1 x10*3/uL (2.0-8.3); Neutrophils Percent Auto 84.1 % (45-73); Platelet Count 270 X10*3/uL (160-400); Red Blood Count 4.49 X10*6/uL (4.20-5.50); Red Cell Distribution Width 14.7 % (11.0-16.0); White Blood Count 9.7 X10*3/uL (4.8-10.8)
[2024-02-27] MEDS: methylPREDNISolone Sod Succ 125 MG/2 ML VIAL IVPUSH (09:15)
--- NOTE | 2024-02-27 09:17 | PC.NURSE ---
Patient requesting steriod to be given IM vs IV. provider aware and okay to give IM. Sating 95% on 2 liters NC , 1:1 at bedside
[2024-02-27 09:29] LABS: Alanine Aminotransferase 11 U/L (0-31); Albumin Level 4.1 g/dL (3.5-5.0); Alkaline Phosphatase 51 U/L (39-117); Anion Gap 14 (12-20); Aspartate Amino Transferase 9 U/L (5-31); Bilirubin Total 0.3 mg/dL (0.0-1.0); Blood Urea Nitrogen 11 mg/dL (9-16); Calcium 10.1 mg/dL (8.4-10.2); Carbon Dioxide 29 mmol/L (22-29); Chloride 100 mmol/L (96-108); Creatinine Clr Calc Pharmacy 124.2; Estimated Glomerular Filt Rate > 60; Ethanol < 10 mg/dL; Glucose Random 139 mg/dL (60-115); Lipase 33 U/L (8-78); Potassium 4.7 mmol/L (3.3-5.1); Salicylate < 5.0 mg/dL (15-30); Sodium 138 mmol/L (135-145); Total Protein 6.8 g/dL (6.5-8.0)
[2024-02-27 09:30] LABS: Amphetamine Screen Urine Not Detected (Not Detect); Barbiturates, Urine Not Detected (Not Detect); Benzodiazepines Screen Urine Not Detected (Not Detect); Buprenorphine Scr Not Detected (Not Detect); Cannabinoid Screen Urine Not Detected (Not Detect); Cocaine Screen Urine Not Detected (Not Detect); Fentanyl, urine Not Detected (Not Detect); Methadone Screen, Urine Not Detected (Not Detect); Opiate Screen Urine Not Detected (Not Detect); Oxycodone Screen Urine Not Detected (Not Detect); Phencyclidine Screen Urine Not Detected (Not Detect)
[2024-02-27 10:02] VITALS: BP 133/62; PULSE 100; RESP 24; TEMP 36.9; O2SAT 92
[2024-02-27 11:10] LABS: Influenza A PCR NEGATIVE (Negative); Influenza B PCR NEGATIVE (Negative); Resp Syncy Virus RNA Qual PCR NEGATIVE (Negative); SARS COV2 PCR INHOUSE NEGATIVE (Negative)
[2024-02-27] MEDS: Doxycycline Monohydrate 100 MG CAPSULE PO (11:58)
[2024-02-27] MEDS: Azithromycin 500 MG TABLET PO (11:58)
[2024-02-27 15:32] VITALS: PULSE 115; PULSE 120; PULSE 123; O2SAT 87; O2SAT 88; O2SAT 92
--- NOTE | 2024-02-27 15:42 | PC.RT ---
pt evaluated again for home oxygen. She will need 1 liter at rest and 2 with ambulation. Pt could only walk about 20 feet in total. [facility]rayan will be here DME. All paperwork faxed and pt and a [facility] 02 tank to take with her upon discharge. She has been shown and instructed proper use of oxygen and safety.
[2024-02-27 15:51] VITALS: BP 154/73; PULSE 88; RESP 18; TEMP 36.6; O2SAT 95
--- NOTE | 2024-02-27 15:52 | PC.NURSE ---
Seen by respiratory and provided with home 02. Patient aware to use 1 liters at rest and 2 liters with ambulation. Patient brought to waiting room to wait for her staff to pick her up
== END 2024-02-27 15:53 | disposition home or self-care (01) ==
PROVIDERS: Physician Assistant Medical; Emergency Provider Emergency Medicine
DX: F31.9 Bipolar disorder, unspecified (principal); R45.851 Suicidal ideations; R45.850 Homicidal ideations; R06.2 Wheezing; J18.9 Pneumonia, unspecified organism; Z11.52 Encounter for screening for COVID-19; Z20.822 Contact with and (suspected) exposure to COVID-19; Z79.899 Other long term (current) drug therapy
CPT/HCPCS: 0241U; 36415; 71046; 80053; 80179; 80307; 81003; 81025; 83690; 83735; 85025; 94640; 99285; J2919; S9485

== ENCOUNTER 2024-03-06 02:08 | Emergency (ER) | payer OTHER, SELFPAY ==
[2024-03-06 02:12] VITALS: BP 108/59; BP 138/88; PULSE 78; PULSE 95; RESP 18; TEMP 36.7; O2SAT 94; O2SAT 96; BMI 45.0
[2024-03-06 02:19] VITALS: BP 108/59; PULSE 76; RESP 18; TEMP 36.7; O2SAT 94
--- NOTE | 2024-03-06 02:23 | PC.NURSE ---
PT arrived via ems with reports of SI with a plan to overdose. PT recently prescribed oxygen 23/05, and her family is sick causing depression symptoms. PT denies any medical concerns at this time. . 1:1 sitter at bedside. PT changed over. Belongings secured by security. oxygen tank being kept in the bubble
--- NOTE | 2024-03-06 02:30 | ED.PSYCH ---
HPI - Psych General Chief Complaint: Psychiatric Symptoms Stated Complaint: si Time Seen by Provider: 03/06/24 02:11 Source: patient, EMS and old records reviewed Mode of arrival: EMS Limitations: no limitations History of Present Illness HPI Narrative: 54 yo female with PMH of COPD on home o2, substance abuse, diarrhea, UTI, anxiety, bipolar disorder, cocaine abuse, borderline personality disorder here with c/o feeling depressed and thoughts of wanting to hurt herself. Feels isolated from friends and family. Has sick family members up in [place] whom she cannot visit. Plans to overdose. MD complaint: suicidal ideation and feels depressed Onset (ago): day(s) Duration: constant History of same: Yes Relieving factors: none Exacerbating factors: other Context: significant life stressor Associated psychiatric symptoms: depression and suicidal ideation Associated symptoms: denies other symptoms If self harm: admits thoughts of self harm and has plan Related Data Home Medications ?Medication ?Instructions ?Recorded ?Confirmed lithium carbonate 450 mg 450 mg PO TID 05/14/23 02/20/24 tablet,extended release cyanocobalamin (vitamin B-12) 1,000 mcg PO DAILY 06/11/23 02/20/24 1,000 mcg tablet (Vitamin B-12) ipratropium 0.5 mg-albuterol 3 mg 3 ml inhalation RQ6H PRN Shortness 06/11/23 02/20/24 (2.5 mg base)/3 mL nebulization Of Breath Or Wheezing soln cetirizine 10 mg tablet 10 mg PO DAILY PRN Allergy Symptoms 12/19/23 02/20/24 melatonin 3 mg tablet 3 mg PO BEDTIME 12/19/23 02/20/24 valacyclovir 500 mg tablet 500 mg PO DAILY 12/19/23 02/20/24 omeprazole 20 mg capsule,delayed 20 mg PO DAILY@0630 12/29/23 02/20/24 release acetaminophen 500 mg tablet (Pain 1,000 mg PO Q8H PRN Pain 02/20/24 02/20/24 Relief Extra Strength (acetaminophen)) apixaban 5 mg tablet (Eliquis) 5 mg PO BID 02/20/24 02/20/24 cholecalciferol (vitamin D3) 25 25 mcg PO DAILY 02/20/24 02/20/24 mcg (1,000 unit) tablet (Vitamin D3) gabapentin 300 mg capsule 300 mg PO TID 02/20/24 02/20/24 Previous Rx's ?Medication ?Instructions ?Recorded albuterol sulfate 90 mcg/actuation 2 puff inhalation Q4H PRN 03/22/23 aerosol inhaler (Ventolin HFA) shortness of breath or wheezing #6.7 grams clonidine HCl 0.2 mg tablet 0.2 mg PO BEDTIME #30 tabs 03/22/23 ferrous sulfate 324 mg (65 mg 324 mg PO DAILY #30 tabs 03/22/23 iron) tablet,delayed release olanzapine 10 mg tablet 10 mg PO BEDTIME #30 tabs 03/22/23 ropinirole 1 mg tablet 1 mg PO BEDTIME #30 tabs 03/22/23 tiotropium bromide 18 mcg capsule 18 mcg inhalation RDAILY #20 03/22/23 with inhalation device (Spiriva inhalations with HandiHaler) nicotine 21 mg/24 hr daily 21 mg transdermal DAILY #28 ea 02/22/24 transdermal patch prednisone 20 mg tablet 20 mg PO DAILY #5 tabs 02/22/24 albuterol sulfate 90 mcg/actuation 2 puff inhalation Q20M PRN 02/27/24 aerosol inhaler shortness of breath or wheezing #8.5 grams azithromycin 250 mg tablet See Rx Instructions PO .COMPLEX #6 02/27/24 (Zithromax Z-Dany) tabs doxycycline monohydrate 100 mg 100 mg PO BID 5 days #9 caps 02/27/24 capsule prednisone 20 mg tablet 40 mg (2 x 20 mg) PO DAILY 5 days 02/27/24 #10 tabs Allergies Allergy/AdvReac Type Severity Reaction Status Date / Time aspirin Allergy Mild Anaphylaxis Verified 03/06/24 02:15 ampicillin Allergy Rash Verified 03/06/24 02:15 Penicillins Allergy Anaphylaxis Verified 03/06/24 02:15 latex AdvReac Rash Verified 03/06/24 02:15 Latex, Natural Rubber AdvReac Rash Verified 03/06/24 02:15 seafood AdvReac Anaphylaxis Verified 03/06/24 02:15 Sulfa (Sulfonamide AdvReac Hives Verified 03/06/24 02:15 Antibiotics) Review of Systems Review of Systems: Constitutional : No Fever, No Chills ENT/Mouth : No Ear Pain, No Nasal Congestion, No sore throat Eyes: No Eye Pain, No Swelling, No Redness Cardiovascular : No Chest Pain, No SOB Respiratory : No Cough, No Sputum, No Dyspnea Gastrointestinal : No Nausea, No Vomiting, No Diarrhea, No Hematochezia, No Melena Genitourinary : No Dysuria, No Urinary Frequency, No Hematuria Musculoskeletal : No Myalgias Skin : No Skin Lesions, No rash Neuro : No Weakness, No Numbness, No Paresthesias, No Dizziness, No Headache Psych : positive Anxiety, positive Depression, positive SI no HI All other systems reviewed and are negative [facility] Past Medical History Attestation statement: The following information was validated with the patient. Source: old records reviewed Medical History Morbid obesity Intentional overdose Acute bronchospasm Bipolar I disorder with depression Overdose on Tylenol Suicide attempt Asthma COPD (chronic obstructive pulmonary disease) Chronic lung disease Neoplasm of parotid gland Depression 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 Drug abuse Bipolar I disorder Post traumatic stress disorder (PTSD) Tobacco use disorder FABIOLA (obstructive sleep apnea) Borderline personality disorder Intermittent explosive disorder Asthma exacerbation in COPD Herpes Tobacco use Bipolar disorder COPD (chronic obstructive pulmonary disease) Surgical History History of ankle surgery History of back surgery Hx of cholecystectomy History of appendectomy Family History Family History Mother COPD (chronic obstructive pulmonary disease) Social History Social History Household Members: None Household Members Other:: So Housing: Apartment Housing Other:: Sleeps on the couch at [facility] house Do you presently have visiting nurse or other home services: No Unable to assess alcohol history related to: Unknown Alcohol intake: former Comment: 1:1sitter Patient Tobacco Use Status: Current everyday Tobacco user Tobacco use type: Cigarette Cigarette Packs Per Day: 1 Cigarettes Per Day: 20.0 Years Smoked: 20 Smoked in Last 30 Days: Yes e-Cigarette/Vaping Use: Never Used Second Hand Smoke Exposure: No Use of substances other than those prescribed or required for medical reasons: Yes Substance Use Type: Crack/Cocaine Substance Use Frequency: Daily Advance Directives: Yes Advance Directives on File: Yes Advance Directives Date on File: 06/17/22 Do you have a plan to hurt others: No Plan Patient : No service: No Current occupational status: unemployed and disabled Sexual orientation: Straight/Heterosexual Physical Exam Vital Signs: Vital Signs: Last Vital Signs Temp 98.1 F 03/06/24 02:19 Pulse 74 03/06/24 03:06 Resp 16 03/06/24 03:06 BP 108/59 L 03/06/24 02:19 Pulse Ox 94 03/06/24 02:19 O2 Del Method Nasal Cannula 03/06/24 02:19 O2 Flow Rate 2 03/06/24 02:19 BMI result Body Mass Index 45.0 Appearance: Alert. Oriented X3. No acute distress. Eyes: Pupils equal, round and reactive to light. ENT: Pharynx normal. Neck: Normal inspection. Neck supple. CVS: Normal heart rate and rhythm. Pulses normal. Respiratory: No respiratory distress. Breath sounds diminished Abdomen: Soft and nontender. Skin: Skin warm and dry. Normal skin color. Normal skin turgor. Extremities: No lower extremity edema. No calf ttp Neuro: Oriented X 3. No motor deficit. No sensory deficit. CN2-12 intact Medications Administered Discontinued Medications Generic Name Dose Route Start Last Admin Trade Name Freq PRN Reason Stop Dose Admin Albuterol Sulfate 7.5 mg/ 10 mg 03/06/24 03:01 03/06/24 03:05 Albuterol Sulfate 2.5 mg INHALE 03/06/24 03:02 10 mg ONCE ONE Administration Medical Decision Making Medical Decision Making MDM Narrative: 54 yo female with PMH of COPD on home o2, substance abuse, diarrhea, UTI, anxiety, bipolar disorder, cocaine abuse, borderline personality disorder here with c/o SI in setting of feeling isolated and unable to see her family who is ill with plan to overdose. She has no medical complaints at this time. Labs and CARE team consult. Differential Diagnosis Differential Diagnoses: The differential diagnosis associated with the presentation includes depression, stress, SI Admission/Observation Consideration of admission/observation: Escalation of care including admission/observation considered physician observation started at 233am until CARE team can see the patient Consult Healthcare Provider Management of the patient was discussed with: Behavioral Health Provider Lab Data [facility] Lab Attestation statement: I reviewed the patient's lab results. 03/06/24 02:49 03/06/24 02:49 Labs: Lab Results 05/07/24 05/07/24 Range/Units 02:49 03:33 WBC 11.4 H (4.8-10.8) X10*3/uL RBC 4.45 (4.20-5.50) X10*6/uL Hgb 14.0 (12.0-16.0) g/dl Hct 44.1 (37.0-47.0) % MCV 99.1 H (80.0-98.0) fL MCH 31.5 (27.0-33.0) pg MCHC 31.7 (31.0-35.0) g/dl RDW 13.9 (11.0-16.0) % Plt Count 207 (160-400) X10*3/uL MPV 9.5 (9.4-12.3) fL Immature Gran % (Auto) 0.3 (0.0-0.4) % Neut % (Auto) 60.6 (45-73) % Lymph % (Auto) 30.5 (20-40) % Gillespie % (Auto) 6.1 (2-11) % Eos % (Auto) 1.8 (0-4) % Baso % (Auto) 0.7 (0-2) % Lymph # (Auto) 3.5 (1.2-4.9) X10*3/uL Gillespie # (Auto) 0.7 (0.1-1.2) X10*3/uL Eos # (Auto) 0.2 (0.0-0.4) X10*3/uL Baso # (Auto) 0.1 (0.0-0.2) X10*3/uL Abs Immat Gran (auto) 0.03 (0.00-0.03) X10*3/uL Absolute Neuts (auto) 6.9 (2.0-8.3) x10*3/uL Absolute Nucleated RBC 0.000 (0.0-0.012) X10*3/uL Nucleated RBC % (auto) 0.0 (0.0-0.2) /100WBC Sodium 142 (135-145) mmol/L Potassium 4.0 (3.3-5.1) mmol/L Chloride 104 (96-108) mmol/L Carbon Dioxide 27 (22-29) mmol/L Anion Gap 15 (12-20) BUN 17 H (9-16) mg/dL Creatinine 0.74 (0.5-1.4) mg/dL Estim Creat Clear Calc 115.5 Estimated GFR > 60 Random Glucose 113 (60-115) mg/dL Calcium 9.8 (8.4-10.2) mg/dL Magnesium 2.1 (1.6-2.6) mg/dL Total Bilirubin 0.5 (0.0-1.0) mg/dL Direct Bilirubin 0.2 (0.0-0.5) mg/dL AST 9 (5-31) U/L ALT 13 (0-31) U/L Alkaline Phosphatase 50 (39-117) U/L Total Protein 6.8 (6.5-8.0) g/dL Albumin 4.2 (3.5-5.0) g/dL Urine Opiates Screen Not Detected (Not Detect) Ur Buprenorphine Scrn Not Detected (Not Detect) ng/mL Ur Oxycodone Screen Not Detected (Not Detect) ng/mL Urine Methadone Screen Not Detected (Not Detect) ng/mL Urine Fentanyl Screen Not Detected (Not Detect) Ur Barbiturates Screen Not Detected (Not Detect) Ur Phencyclidine Scrn Not Detected (Not Detect) Ur Amphetamines Screen Not Detected (Not Detect) U Benzodiazepines Scrn Not Detected (Not Detect) Carson 1.15 (0.60-1.20) mmol/L Urine Cocaine Screen POSITIVE H (Not Detect) U Marijuana (THC) Screen Not Detected (Not Detect) Ethyl Alcohol < 10 mg/dL Independent Historian Clinical information obtained from an independent historian. History obtained from or confirmed by: EMS External Record Review External record reviewed: Inpatient record Social Determinants Patient?s care significantly limited by Social Determinants of Health including: Problems related to primary support group Discharge Plan Discharge Clinical Impression: Suicidal ideation, Cocaine use disorder Patient Disposition: Still a Patient Prescriptions: No Action ropinirole 1 mg Tablet 1 mg PO BEDTIME Qty: 30 0RF olanzapine 10 mg Tablet 10 mg PO BEDTIME Qty: 30 0RF clonidine HCl 0.2 mg Tablet 0.2 mg PO BEDTIME Qty: 30 0RF Protocol: Hold for SBP< HOLD for SBP < : 90 albuterol sulfate [Ventolin HFA] 90 mcg/actuation Hfa Aerosol Inhaler 2 puff inhalation Q4H PRN (Reason: shortness of breath or wheezing) Qty: 6.7 0RF tiotropium bromide [Spiriva with HandiHaler] 18 mcg Capsule, W/Inhalation Device 18 mcg inhalation RDAILY Qty: 20 0RF ferrous sulfate 324 mg (65 mg iron) Tablet,Delayed Release (Dr/Ec) 324 mg PO DAILY Qty: 30 0RF cetirizine 10 mg Tablet 10 mg PO DAILY PRN (Reason: Allergy Symptoms) melatonin 3 mg Tablet 3 mg PO BEDTIME valacyclovir 500 mg Tablet 500 mg PO DAILY omeprazole 20 mg Capsule,Delayed Release(Dr/Ec) 20 mg PO DAILY@0630 acetaminophen [Pain Relief ES (acetaminophen)] 500 mg tablet 1,000 mg PO Q8H PRN (Reason: Pain) gabapentin 300 mg capsule 300 mg PO TID cholecalciferol (vitamin D3) [Vitamin D3] 25 mcg (1,000 unit) tablet 25 mcg PO DAILY Eliquis 5 mg Tablet 5 mg PO BID nicotine 21 mg/24 hr Patch 24 Hour 21 mg transdermal DAILY Qty: 28 0RF prednisone 20 mg tablet 20 mg PO DAILY Qty: 5 0RF lithium carbonate 450 mg tablet extended release 450 mg PO TID cyanocobalamin (vitamin B-12) [Vitamin B-12] 1,000 mcg tablet 1,000 mcg PO DAILY ipratropium-albuterol 0.5 mg-3 mg(2.5 mg base)/3 mL solution for nebulization 3 ml inhalation RQ6H PRN (Reason: Shortness Of Breath Or Wheezing) prednisone 20 mg tablet 40 mg PO DAILY 5 Days Qty: 10 0RF albuterol sulfate 90 mcg/actuation HFA aerosol inhaler 2 puff inhalation Q20M PRN (Reason: shortness of breath or wheezing) Qty: 8.5 0RF doxycycline monohydrate 100 mg capsule 100 mg PO BID 5 Days Qty: 9 0RF azithromycin [Zithromax Z-Dany] 250 mg tablet See Rx Instructions .ROUTE .COMPLEX Qty: 6 0RF Rx Instructions: For 250 mg dose pack: take 500 mg today (day 1), then 250 mg for 4 days (days 2-5) Interventions: Mcpherson-Suicide Risk Severity Scale Last Done: 03/06/24 02:19 Print Language: [place]
[2024-03-06 02:54] LABS: MANUAL DIFF FLAG NO
[2024-03-06 02:56] LABS: Basophils Absolute Auto 0.1 X10*3/uL (0.0-0.2); Basophils Percent Auto 0.7 % (0-2); Eosinophils Absolute Auto 0.2 X10*3/uL (0.0-0.4); Eosinophils Percent Auto 1.8 % (0-4); Hematocrit 44.1 % (37.0-47.0); Imm Gran Abs Auto 0.03 X10*3/uL (0.00-0.03); Imm Gran Pct Auto 0.3 % (0.0-0.4); Lymphocytes Absolute Auto 3.5 X10*3/uL (1.2-4.9); Lymphocytes Percent Auto 30.5 % (20-40); Mean Corpuscular HGB Conc 31.7 g/dl (31.0-35.0); Mean Corpuscular Hemoglobin 31.5 pg (27.0-33.0); Mean Corpuscular Volume 99.1 fL (80.0-98.0); Mean Platelet Volume 9.5 fL (9.4-12.3); Monocytes Absolute Auto 0.7 X10*3/uL (0.1-1.2); Monocytes Percent Auto 6.1 % (2-11); Neutrophils Absolute Auto 6.9 x10*3/uL (2.0-8.3); Neutrophils Percent Auto 60.6 % (45-73); Platelet Count 207 X10*3/uL (160-400); Red Blood Count 4.45 X10*6/uL (4.20-5.50); Red Cell Distribution Width 13.9 % (11.0-16.0); White Blood Count 11.4 X10*3/uL (4.8-10.8)
[2024-03-06 03:05] LABS: Lithium 1.15 mmol/L (0.60-1.20)
[2024-03-06] MEDS: Albuterol Sulfate 7.5 MG, Albuterol Sulfate (0.083%) 2.5 MG 10 MG INHALE (03:05)
[2024-03-06 03:06] VITALS: PULSE 74; RESP 16; O2SAT 94
[2024-03-06 03:12] LABS: Alanine Aminotransferase 13 U/L (0-31); Albumin Level 4.2 g/dL (3.5-5.0); Alkaline Phosphatase 50 U/L (39-117); Anion Gap 15 (12-20); Aspartate Amino Transferase 9 U/L (5-31); Bilirubin Direct 0.2 mg/dL (0.0-0.5); Bilirubin Total 0.5 mg/dL (0.0-1.0); Blood Urea Nitrogen 17 mg/dL (9-16); Calcium 9.8 mg/dL (8.4-10.2); Carbon Dioxide 27 mmol/L (22-29); Chloride 104 mmol/L (96-108); Creatinine Clr Calc Pharmacy 115.5; Estimated Glomerular Filt Rate > 60; Ethanol < 10 mg/dL; Glucose Random 113 mg/dL (60-115); Magnesium 2.1 mg/dL (1.6-2.6); Sodium 142 mmol/L (135-145); Total Protein 6.8 g/dL (6.5-8.0)
[2024-03-06 03:53] LABS: Amphetamine Screen Urine Not Detected (Not Detect); Barbiturates, Urine Not Detected (Not Detect); Benzodiazepines Screen Urine Not Detected (Not Detect); Buprenorphine Scr Not Detected (Not Detect); Cannabinoid Screen Urine Not Detected (Not Detect); Cocaine Screen Urine POSITIVE (Not Detect); Fentanyl, urine Not Detected (Not Detect); Methadone Screen, Urine Not Detected (Not Detect); Opiate Screen Urine Not Detected (Not Detect); Oxycodone Screen Urine Not Detected (Not Detect); Phencyclidine Screen Urine Not Detected (Not Detect)
[2024-03-06] MEDS: Gabapentin 400 MG CAPSULE PO (05:13)
[2024-03-06 07:27] VITALS: BP 105/51; PULSE 80; RESP 18; TEMP 37.1; O2SAT 90
--- NOTE | 2024-03-06 07:44 | PC.NURSE ---
safety regular diet tray ordered for this pt at this time. pt speaking w/ mickey from care team at this time. plan of care ongoing.
[2024-03-06 08:11] VITALS: BP 110/63; PULSE 85; RESP 16; TEMP 37.1; O2SAT 93
--- NOTE | 2024-03-06 08:11 | PC.NURSE ---
vss and up to date. pt spoke w/ mickey in regards to plan of care. pt verbalizes no longer being SI. also denies HI. will update pt on ETA for lyft once this RN is aware. 1:1 sitter remains present.
--- NOTE | 2024-03-06 08:44 | PC.NURSE ---
belongings returned to pt/pt changed over. mickey from care team notified. lyft being ordered. ETA in progress.
[2024-03-06 08:50] VITALS: BP 110/63; PULSE 85; RESP 16; TEMP 37.1; O2SAT 93
== END 2024-03-06 08:51 | disposition home or self-care (01) ==
PROVIDERS: Emergency Medicine; Emergency Provider Emergency Medicine Emergency Medical Services
DX: R45.851 Suicidal ideations (principal); F14.90 Cocaine use, unspecified, uncomplicated; J44.9 Chronic obstructive pulmonary disease, unspecified; Z99.81 Dependence on supplemental oxygen
CPT/HCPCS: 36415; 80048; 80076; 80178; 80307; 83735; 85025; 94640; 99285; S9485

== ENCOUNTER 2024-03-17 02:25 | Inpatient (IN) | payer MEDICAID, SELFPAY ==
[2024-03-17] VITALS (10 sets, daily range): BP systolic 103–143; BP diastolic 49–83; PULSE 76–94; RESP 16–20; TEMP 36.3–36.9; O2SAT 89–97; BMI 51.1; BMI 46.3
--- NOTE | 2024-03-17 | ECG_ITS ---
Test Reason : dyspnea Blood Pressure : / mmHG Vent. Rate : 073 BPM Atrial Rate : 073 BPM P-R Int : 154 ms QRS Dur : 082 ms QT Int : 400 ms P-R-T Axes : 022 045 053 degrees QTc Int : 440 ms Normal sinus rhythm Low voltage QRS Cannot rule out Anterior infarct , age undetermined Abnormal ECG When compared with ECG of 19-FEB-2024 18:57, No significant change was found Referred By: Generic ED Physician Electronically Signed By:VAIBHAV KILLIAN MD
--- NOTE | ~2024-03-17 | XR_ITS ---
EXAMINATION: XR CHEST CLINICAL INFORMATION: Shortness of breath. COMPARISON: 02/27/2024 TECHNIQUE: Frontal view of the chest was obtained. FINDINGS: Lung volumes are relatively low. The cardiomediastinal silhouette is stable. There is mild diffuse increased markings. There is no focal consolidation or pleural effusions. The bony structures and soft tissues are unremarkable. XR/XR chest 1V IMPRESSION: Mild diffuse increased markings may be secondary to low lung volumes. Mild congestion cannot be excluded.
[2024-03-17 04:11] LABS: Basophils Absolute Auto 0.1 X10*3/uL (0.0-0.2); Basophils Percent Auto 0.8 % (0-2); Eosinophils Absolute Auto 0.2 X10*3/uL (0.0-0.4); Eosinophils Percent Auto 2.4 % (0-4); Hematocrit 41.9 % (37.0-47.0); Hemoglobin 12.9 g/dl (12.0-16.0); Imm Gran Abs Auto 0.03 X10*3/uL (0.00-0.03); Imm Gran Pct Auto 0.4 % (0.0-0.4); Lymphocytes Absolute Auto 2.1 X10*3/uL (1.2-4.9); Lymphocytes Percent Auto 26.8 % (20-40); MANUAL DIFF FLAG NO; Mean Corpuscular HGB Conc 30.8 g/dl (31.0-35.0); Mean Corpuscular Hemoglobin 31.9 pg (27.0-33.0); Mean Corpuscular Volume 103.5 fL (80.0-98.0); Mean Platelet Volume 9.7 fL (9.4-12.3); Monocytes Absolute Auto 0.6 X10*3/uL (0.1-1.2); NRBC Pct Auto 0.4 /100WBC (0.0-0.2); Neutrophils Absolute Auto 4.9 x10*3/uL (2.0-8.3); Neutrophils Percent Auto 62.6 % (45-73); Platelet Count 254 X10*3/uL (160-400); Red Blood Count 4.05 X10*6/uL (4.20-5.50); Red Cell Distribution Width 14.2 % (11.0-16.0); White Blood Count 7.9 X10*3/uL (4.8-10.8)
[2024-03-17 04:34] LABS: Troponin-I High Sensitivity < 2.7 ng/L (<3.5-17.0)
[2024-03-17 04:38] LABS: Anion Gap 15 (12-20)
[2024-03-17 04:44] LABS: Alanine Aminotransferase 13 U/L (0-31); Albumin Level 3.8 g/dL (3.5-5.0); Alkaline Phosphatase 56 U/L (39-117); Aspartate Amino Transferase 13 U/L (5-31); Bilirubin Total 0.2 mg/dL (0.0-1.0); Blood Urea Nitrogen 10 mg/dL (9-16); Calcium 9.6 mg/dL (8.4-10.2); Carbon Dioxide 28 mmol/L (22-29); Chloride 102 mmol/L (96-108); Creatinine Clr Calc Pharmacy 120.2; Estimated Glomerular Filt Rate > 60; Glucose Random 113 mg/dL (60-115); Potassium 4.7 mmol/L (3.3-5.1); Sodium 140 mmol/L (135-145); Total Protein 6.4 g/dL (6.5-8.0)
--- NOTE | 2024-03-17 07:18 | ED.SOB ---
HPI - SOB/Dyspnea General Chief Complaint: Dyspnea Stated Complaint: DIFFICULTY BREATHING Time Seen by Provider: 03/17/24 07:12 Source: patient Mode of arrival: ambulatory Limitations: no limitations History of Present Illness HPI Narrative: 54-year-old female with past medical history significant for COPD, persistent asthma, active smoker on CPAP and use supplemental oxygen 1-2 L at home, morbid obesity, bipolar disorder was brought in by EMS for difficulty breathing for the past 4 days despite using her inhaler at home, productive cough with yellow sputum, no fever, no chills, no sick contacts, no recent travel, no lower extremity swelling or tenderness. Related Data Home Medications ?Medication ?Instructions ?Recorded ?Confirmed lithium carbonate 450 mg 450 mg PO TID 05/14/23 02/20/24 tablet,extended release cyanocobalamin (vitamin B-12) 1,000 mcg PO DAILY 06/11/23 02/20/24 1,000 mcg tablet (Vitamin B-12) ipratropium 0.5 mg-albuterol 3 mg 3 ml inhalation RQ6H PRN Shortness 06/11/23 02/20/24 (2.5 mg base)/3 mL nebulization Of Breath Or Wheezing soln cetirizine 10 mg tablet 10 mg PO DAILY PRN Allergy Symptoms 12/19/23 02/20/24 melatonin 3 mg tablet 3 mg PO BEDTIME 12/19/23 02/20/24 valacyclovir 500 mg tablet 500 mg PO DAILY 12/19/23 02/20/24 omeprazole 20 mg capsule,delayed 20 mg PO DAILY@0630 12/29/23 02/20/24 release acetaminophen 500 mg tablet (Pain 1,000 mg PO Q8H PRN Pain 02/20/24 02/20/24 Relief Extra Strength (acetaminophen)) apixaban 5 mg tablet (Eliquis) 5 mg PO BID 02/20/24 02/20/24 cholecalciferol (vitamin D3) 25 25 mcg PO DAILY 02/20/24 02/20/24 mcg (1,000 unit) tablet (Vitamin D3) gabapentin 300 mg capsule 300 mg PO TID 02/20/24 02/20/24 Previous Rx's ?Medication ?Instructions ?Recorded albuterol sulfate 90 mcg/actuation 2 puff inhalation Q4H PRN 03/22/23 aerosol inhaler (Ventolin HFA) shortness of breath or wheezing #6.7 grams clonidine HCl 0.2 mg tablet 0.2 mg PO BEDTIME #30 tabs 03/22/23 ferrous sulfate 324 mg (65 mg 324 mg PO DAILY #30 tabs 03/22/23 iron) tablet,delayed release olanzapine 10 mg tablet 10 mg PO BEDTIME #30 tabs 03/22/23 ropinirole 1 mg tablet 1 mg PO BEDTIME #30 tabs 03/22/23 tiotropium bromide 18 mcg capsule 18 mcg inhalation RDAILY #20 03/22/23 with inhalation device (Spiriva inhalations with HandiHaler) nicotine 21 mg/24 hr daily 21 mg transdermal DAILY #28 ea 02/22/24 transdermal patch prednisone 20 mg tablet 20 mg PO DAILY #5 tabs 02/22/24 albuterol sulfate 90 mcg/actuation 2 puff inhalation Q20M PRN 02/27/24 aerosol inhaler shortness of breath or wheezing #8.5 grams azithromycin 250 mg tablet See Rx Instructions PO .COMPLEX #6 02/27/24 (Zithromax Z-Dany) tabs doxycycline monohydrate 100 mg 100 mg PO BID 5 days #9 caps 02/27/24 capsule prednisone 20 mg tablet 40 mg (2 x 20 mg) PO DAILY 5 days 02/27/24 #10 tabs Allergies Allergy/AdvReac Type Severity Reaction Status Date / Time aspirin Allergy Mild Anaphylaxis Verified 03/17/24 03:25 ampicillin Allergy Rash Verified 03/17/24 03:25 Penicillins Allergy Anaphylaxis Verified 03/17/24 03:25 latex AdvReac Rash Verified 03/17/24 03:25 Latex, Natural Rubber AdvReac Rash Verified 03/17/24 03:25 seafood AdvReac Anaphylaxis Verified 03/17/24 03:25 Sulfa (Sulfonamide AdvReac Hives Verified 03/17/24 03:25 Antibiotics) Review of Systems Review of Systems: All other systems are reviewed and are negative Constitutional: Reports as per HPI and Reports no additional constitutional complaints Eyes: Reports as per HPI and Reports no additional eye complaints Reports system reviewed and no additional complaints, except as documented Cardiovascular: Reports as per HPI and Reports no additional cardiovascular complaints Respiratory: Reports as per HPI and Reports no additional respiratory complaints Gastrointestinal: Reports as per HPI and Reports no additional gastrointestinal complaints Genitourinary: Reports no additional female genitourinary complaints Musculoskeletal: Reports no additional musculoskeletal complaints Skin/Breast: Reports system reviewed and no additional complaints, except as docu Psychiatric: Reports no additional psychiatric complaints Endocrine: Reports no additional endocrine complaints Hematologic/Lymphatic: Reports no additional hematologic/lymphatic complaints Allergic/Immunologic: Reports no additional allergic/immunologic complaints Reports system reviewed and no additional complaints, except as documented and Reports Abnormal speech present [facility] Past Medical History Medical History Morbid obesity Intentional overdose Acute bronchospasm Bipolar I disorder with depression Overdose on Tylenol Suicide attempt Asthma COPD (chronic obstructive pulmonary disease) Chronic lung disease Neoplasm of parotid gland Depression 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 Drug abuse Bipolar I disorder Post traumatic stress disorder (PTSD) Tobacco use disorder FABIOLA (obstructive sleep apnea) Borderline personality disorder Intermittent explosive disorder Asthma exacerbation in COPD Herpes Tobacco use Bipolar disorder COPD (chronic obstructive pulmonary disease) Surgical History History of ankle surgery History of back surgery Hx of cholecystectomy History of appendectomy Family History Family History Mother COPD (chronic obstructive pulmonary disease) Social History Social History Household Members: None Household Members Other:: So Housing: Apartment Housing Other:: Sleeps on the couch at [facility] house Do you presently have visiting nurse or other home services: No Unable to assess alcohol history related to: Unknown Alcohol intake: former Comment: 1:1sitter Patient Tobacco Use Status: Current everyday Tobacco user Tobacco use type: Cigarette Cigarette Packs Per Day: 1 Cigarettes Per Day: 20.0 Years Smoked: 20 Smoked in Last 30 Days: Yes e-Cigarette/Vaping Use: Never Used Second Hand Smoke Exposure: No Substance Use Type: Crack/Cocaine Advance Directives: Yes Advance Directives on File: Yes Advance Directives Date on File: 06/17/22 Do you have a plan to hurt others: No Plan service: No Current occupational status: unemployed and disabled Sexual orientation: Straight/Heterosexual Physical Exam Vital Signs: Vital Signs: Last Vital Signs Temp 98.5 F 03/17/24 02:30 Pulse 81 03/17/24 05:55 Resp 20 05/18/24 05:55 BP 106/64 03/17/24 05:55 Pulse Ox 90 L 03/17/24 05:55 O2 Del Method Nasal Cannula 03/17/24 05:55 O2 Flow Rate 4 03/17/24 05:55 Oxygen Flow Rate 2 03/17/24 02:30 BMI result Body Mass Index 51.1 Vital signs have been reviewed and appear to be correct. Blood pressure elevated. Heart rate normal. Respiratory rate normal. Temperature normal. Oxygen saturation normal. Appearance: Alert. Oriented X3. Mild acute respiratory distress. Head: Normal external exam. Normocephalic. Atraumatic. No Garrett signs noted. No raccoon eyes noted Eyes: PERRLA. EOMI. Conjunctiva and sclera normal. Eyelids normal. ENT: TM's Normal. Pharynx normal. Uvula midline. Moist mucous membranes. No trismus noted. No drooling noted. No muffled voice noted. Neck: Normal inspection. Neck supple. FROM. No adenopathy. Thyroid Normal. No meningeal signs. No neck mass noted. CVS: Normal heart rate and rhythm. Heart sound normal. No murmurs noted. Pulses normal throughout. Respiratory: Mild acute respiratory distress. Painless inspiration. diffuse expiratory wheezing with prolonged expiration and diminished breathing sounds bilaterally. Chest nontender. No accessory muscle usage noted or decreased air movement noted. Abdomen: Soft and nontender. Bowel sounds normal in all 4 quadrants. No distention noted. No organomegaly noted. No visible injury noted. Back: No CVA tenderness. Full range of motion noted. Skin: Skin warm and dry. Normal skin color. Normal skin turgor. No rashes/lesions/lacerations noted. Extremities: No lower extremity edema. Extremities exhibit normal range of motion. Extremities nontender. Neuro: Oriented X 3. Cranial nerve exam: II-XII are grossly intact No motor deficit. No sensory deficit. Reflexes normal. Course Reevaluation(s) Reevaluation #1: Patient with slight improvement after bronchodilator. No SIRS, prophylactic doxycycline, continue supplemental oxygen, and bronchodilator will admit for monitoring. Time: 09:49 Medications Administered Discontinued Medications Generic Name Dose Route Start Last Admin Trade Name Freq PRN Reason Stop Dose Admin Magnesium Sulfate 2 gm in 50 mls @ 25 mls/hr 03/17/24 07:16 05/18/24 09:06 Magnesium Sulfate/H2o IV 05/18/24 09:15 Infused ONCE ONE Infusion Methylprednisolone Sodium Succinate 125 mg 03/17/24 07:16 03/17/24 08:47 Methylprednisolone Sod Succ 125 Mg/2 Ml Vial IVPUSH 03/17/24 07:17 125 mg ONCE ONE Administration Medical Decision Making Differential Diagnosis Differential Diagnoses: The differential diagnosis associated with the presentation includes (Pneumonia, pneumothorax, pleural effusion, COPD exacerbation, asthma exacerbation, viral bronchitis, electrolyte derangement, severe anemia,) Admission/Observation Consideration of admission/observation: Escalation of care including admission/observation considered Consult Healthcare Provider Management of the patient was discussed with: Hospitalist (Lisa Herbert) Lab Data MDM Lab Attestation statement: I reviewed the patient's lab results. 03/17/24 04:06 03/17/24 04:06 Labs: Lab Results 03/17/24 03/17/24 Range/Units 04:06 08:21 WBC 7.9 (4.8-10.8) X10*3/uL RBC 4.05 L (4.20-5.50) X10*6/uL Hgb 12.9 (12.0-16.0) g/dl Hct 41.9 (37.0-47.0) % MCV 103.5 H (80.0-98.0) fL MCH 31.9 (27.0-33.0) pg MCHC 30.8 L (31.0-35.0) g/dl RDW 14.2 (11.0-16.0) % Plt Count 254 (160-400) X10*3/uL MPV 9.7 (9.4-12.3) fL Immature Gran % (Auto) 0.4 (0.0-0.4) % Neut % (Auto) 62.6 (45-73) % Lymph % (Auto) 26.8 (20-40) % [place] % (Auto) 7.0 (2-11) % Eos % (Auto) 2.4 (0-4) % Baso % (Auto) 0.8 (0-2) % Lymph # (Auto) 2.1 (1.2-4.9) X10*3/uL [place] # (Auto) 0.6 (0.1-1.2) X10*3/uL Eos # (Auto) 0.2 (0.0-0.4) X10*3/uL Baso # (Auto) 0.1 (0.0-0.2) X10*3/uL Abs Immat Gran (auto) 0.03 (0.00-0.03) X10*3/uL Absolute Neuts (auto) 4.9 (2.0-8.3) x10*3/uL Absolute Nucleated RBC 0.030 H (0.0-0.012) X10*3/uL Nucleated RBC % (auto) 0.4 H (0.0-0.2) /100WBC Sodium 140 (135-145) mmol/L Potassium 4.7 (3.3-5.1) mmol/L Chloride 102 (96-108) mmol/L Carbon Dioxide 28 (22-29) mmol/L Anion Gap 15 (12-20) BUN 10 (9-16) mg/dL Creatinine 0.69 (0.5-1.4) mg/dL Estim Creat Clear Calc 120.2 Estimated GFR > 60 Random Glucose 113 (60-115) mg/dL Calcium 9.6 (8.4-10.2) mg/dL Total Bilirubin 0.2 (0.0-1.0) mg/dL AST 13 (5-31) U/L ALT 13 (0-31) U/L Alkaline Phosphatase 56 (39-117) U/L Troponin I High Sens < 2.7 (<3.5-17.0) ng/L Total Protein 6.4 L (6.5-8.0) g/dL Albumin 3.8 (3.5-5.0) g/dL Influenza Type A (PCR) NEGATIVE (Negative) Influenza Type B (PCR) NEGATIVE (Negative) RSV RNA Qual (PCR) NEGATIVE (Negative) SARS-CoV-2 RNA (RT-PCR) NEGATIVE (Negative) Independent Interpretation I performed an independent interpretation of an: Plain X-Ray (Chest:Mild diffuse increased markings may be secondary to low lung volumes. Mild congestion cannot be excluded. ) Radiology Impression Discussion of test interpretation with radiology: I have reviewed the radiologist's reading. Chronic Conditions Patient?s care impacted by: Other (Cigarette smoking, COPD.) Discharge Plan Discharge Clinical Impression: Acute exacerbation of chronic obstructive pulmonary disease Patient Disposition: Admitted As Inpatient Print Language: [place]
[2024-03-17] MEDS: methylPREDNISolone Sod Succ 125 MG/2 ML VIAL IVPUSH (08:47)
[2024-03-17] MEDS: Magnesium Sulfate/H2O 2 GM/50 ML PIGGYBACK IV (08:47)
[2024-03-17 09:02] LABS: Influenza A PCR NEGATIVE (Negative); Influenza B PCR NEGATIVE (Negative); Resp Syncy Virus RNA Qual PCR NEGATIVE (Negative); SARS COV2 PCR INHOUSE NEGATIVE (Negative)
[2024-03-17 10:27] LABS: Lactic Acid 0.7 mmol/L (0.5-2.0)
--- NOTE | 2024-03-17 10:50 | PHA.MEDREC ---
Pharmacy Consult ? Medication Reconciliation Pharmacy has completed the medication reconciliation. Spoke to pt to confirm meds. Patient attests to all confirmed meds. Patient mentions that they are on prophylactic doxycycline 100 mg daily, however there is no claim history to confirm this. Leaving off med rec.
[2024-03-17] MEDS: Doxycycline Hyclate 100 MG in 0.9 % Sodium Chloride 250 ML 166.67 MG IV ×2 (11:11→23:02)
--- NOTE | 2024-03-17 12:22 | PM.IMHP ---
History of Present Illness Date of Service: 03/17/24 Chief Complaint: Shortness of breath 54-year-old female with past medical history significant for COPD/asthma overlap syndrome on 1 L of home oxygen at rest and 2 L with activity, history of fibromyalgia, osteoarthritis, history of recurrent UTI, polysubstance use disorder, borderline personality disorder, bipolar disorder anxiety with frequent hospitalization to [facility] presented to ED today with symptoms of shortness of breath of 4 days' duration associated with cough productive of yellowish phlegm with no associated fevers, no chills, no sick contacts, no history of travel, denies allergy symptoms of runny nose, in emergency room patient noted to be hypoxic with finger oximetry of 89 % on 2 L of nasal cannula, chest x-ray showed mild diffuse increased markings question related to low lung volumes, no infiltrates noted patient treated with DuoNeb updraft, IV steroids and IV doxycycline% symptoms persisted and patient remained hypoxic she is being admitted to [facility] for treatment of acute on ch. hypoxic respiratory failure due to acute COPD exacerbation. Review of Systems Review of Systems: General no headache, no dizziness ,no fever chills. CVS no chest pain, no palpitation. 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 Drug abuse Bipolar I disorder Post traumatic stress disorder (PTSD) Tobacco use disorder FABIOLA (obstructive sleep apnea) Borderline personality disorder Intermittent explosive disorder Asthma exacerbation in COPD Herpes Tobacco use Bipolar disorder COPD (chronic obstructive pulmonary disease) Family History Mother COPD (chronic obstructive pulmonary disease) Surgical History History of ankle surgery History of back surgery Hx of cholecystectomy History of appendectomy Social History Household Members: None Household Members Other:: So Housing: Apartment Housing Other:: Sleeps on the couch at [facility] house Do you presently have visiting nurse or other home services: No Unable to assess alcohol history related to: Unknown Alcohol intake: former Comment: 1:1sitter Patient Tobacco Use Status: Current everyday Tobacco user Tobacco use type: Cigarette Cigarette Packs Per Day: 1 Cigarettes Per Day: 20.0 Years Smoked: 20 Smoked in Last 30 Days: Yes e-Cigarette/Vaping Use: Never Used Second Hand Smoke Exposure: No Substance Use Type: Crack/Cocaine Advance Directives: Yes Advance Directives on File: Yes Advance Directives Date on File: 06/17/22 Do you have a plan to hurt others: No Plan service: No Current occupational status: unemployed and disabled Sexual orientation: Straight/Heterosexual Meds Allergies Allergy/AdvReac Type Severity Reaction Status Date / Time aspirin Allergy Mild Anaphylaxis Verified 03/17/24 03:25 ampicillin Allergy Rash Verified 03/17/24 03:25 Penicillins Allergy Anaphylaxis Verified 03/17/24 03:25 latex AdvReac Rash Verified 03/17/24 03:25 Latex, Natural Rubber AdvReac Rash Verified 03/17/24 03:25 seafood AdvReac Anaphylaxis Verified 03/17/24 03:25 Sulfa (Sulfonamide AdvReac Hives Verified 03/17/24 03:25 Antibiotics) Active Medications: Current Medications Acetaminophen (Acetaminophen Supp 650 Mg Supp.Rect) 650 mg SC Q6H PRN PRN Reason: Pain, Mild (Pain Scale 1-3) Al Hydroxide/Mg Hydroxide (Magnesium Hydrox/Alum Hydrox 30 Ml Oral.Susp) 30 ml PO Q4H PRN PRN Reason: Heartburn/Nausea Apixaban (Apixaban 5 Mg Tablet) 5 mg PO BID [facility] Clonidine HCl (Clonidine Hcl 0.2 Mg Tablet) 0.2 mg PO BEDTIME [facility]; Protocol Cyanocobalamin (Cyanocobalamin (Vitamin B-12) 1,000 Mcg Tablet) 1,000 mcg PO DAILY [facility] Docusate Sodium (Docusate Sodium 100 Mg Capsule) 100 mg PO DAILY PRN PRN Reason: Constipation Ferrous Sulfate (Ferrous Sulfate 324 Mg Tablet.Dr) 324 mg PO DAILY [facility] Gabapentin (Gabapentin 300 Mg Capsule) 300 mg PO DAILY PRN PRN Reason: breakthrough neuropathy Gabapentin (Gabapentin 300 Mg Capsule) 300 mg PO TID [facility] Hannaford Carbonate ([place] Carbonate Er 450 Mg Tablet.Er) 450 mg PO TID [facility] Loratadine (Loratadine 10 Mg Tablet) 10 mg PO DAILY PRN PRN Reason: Allergy Symptoms Magnesium Hydroxide (Milk Of Magnesia 30 Ml Oral.Susp) 30 ml PO DAILY PRN PRN Reason: Constipation Melatonin (Melatonin 3 Mg Tablet) 3 mg PO BEDTIME [facility] Olanzapine (Olanzapine 10 Mg Tablet) 10 mg PO BEDTIME [facility] Omeprazole (Omeprazole 20 Mg Capsule.Dr) 20 mg PO DAILY@0630 [facility] Ondansetron HCl (Ondansetron Hcl 4 Mg/2 Ml Vial) 4 mg IVPUSH Q8H PRN PRN Reason: Nausea and Vomiting Ropinirole HCl (Ropinirole Hcl 1 Mg Tablet) 1 mg PO BEDTIME [facility] Sodium Chloride (0.9 % Sodium Chloride Flush 3 Ml Syringe) 3 ml IVFLUSH QSHIFT [facility] Valacyclovir HCl (Valacyclovir Hcl 500 Mg Tablet) 500 mg PO DAILY [facility] Vitamin D (Cholecalciferol (Vitamin D3) 25 Mcg Tablet) 25 mcg PO DAILY [facility] Home Medications ?Medication ?Instructions ?Recorded ?Confirmed ?Last Taken ?Type lithium carbonate 450 mg 450 mg PO TID 05/14/23 03/17/24 03/16/24 History tablet,extended release cyanocobalamin (vitamin B-12) 1,000 mcg PO DAILY 06/11/23 03/17/24 03/16/24 History 1,000 mcg tablet (Vitamin B-12) ipratropium 0.5 mg-albuterol 3 mg 3 ml inhalation RQ6H PRN Shortness 06/11/23 03/17/24 10/23/23 History (2.5 mg base)/3 mL nebulization Of Breath Or Wheezing soln cetirizine 10 mg tablet 10 mg PO DAILY PRN Allergy Symptoms 12/19/23 03/17/24 Unknown History melatonin 3 mg tablet 3 mg PO BEDTIME 12/19/23 03/17/24 03/16/24 History valacyclovir 500 mg tablet 500 mg PO DAILY 12/19/23 03/17/24 03/16/24 History omeprazole 20 mg capsule,delayed 20 mg PO DAILY@0630 12/29/23 03/17/24 03/16/24 History release apixaban 5 mg tablet (Eliquis) 5 mg PO BID 02/20/24 03/17/24 03/16/24 History cholecalciferol (vitamin D3) 25 25 mcg PO DAILY 02/20/24 03/17/24 03/16/24 History mcg (1,000 unit) tablet (Vitamin D3) gabapentin 300 mg capsule 300 mg PO TID 02/20/24 03/17/24 03/16/24 History gabapentin 300 mg capsule 300 mg PO DAILY PRN breakthrough 03/17/24 03/17/24 Unknown History neuropathy Physical Exam Vital Signs and Narrative: Vital Signs: Last Vital Signs Temp 98.5 F 03/17/24 02:30 Pulse 94 03/17/24 11:36 Resp 20 03/17/24 11:36 BP 143/83 H 03/17/24 11:36 Pulse Ox 95 03/17/24 11:36 O2 Del Method Nasal Cannula 03/17/24 11:36 O2 Flow Rate 5 03/17/24 11:36 Oxygen Flow Rate 2 03/17/24 02:30 BMI result Body Mass Index 51.1 Const: Other: Gen: Awake alert x3, no acute distress HEENT: sclera anicteric, moist mucus membranes Neck: supple Lungs: Coarse breath sounds, bilateral expiratory wheeze, no use of accessory muscles Heart: regular rate and rhythm, no murmurs Abd: soft, non-tender, non-distended, obese, bowel sounds audible Ext: no edema Skin: warm/well-perfused/no rash Neuro: alert and oriented x3, no focal findings Psych: appropriate affect Results Labs 03/17/24 04:06 03/17/24 04:06 Labs: Laboratory Results - last 24 hr 03/17/24 03/17/24 03/17/24 04:06 08:21 10:05 MCV 103.5 H MCH 31.9 MCHC 30.8 L RDW 14.2 Plt Count 254 MPV 9.7 Immature Gran % (Auto) 0.4 Neut % (Auto) 62.6 Lymph % (Auto) 26.8 [place] % (Auto) 7.0 Eos % (Auto) 2.4 Baso % (Auto) 0.8 Lymph # (Auto) 2.1 [place] # (Auto) 0.6 Eos # (Auto) 0.2 Baso # (Auto) 0.1 Abs Immat Gran (auto) 0.03 Absolute Neuts (auto) 4.9 Absolute Nucleated RBC 0.030 H Nucleated RBC % (auto) 0.4 H Anion Gap 15 Estim Creat Clear Calc 120.2 Estimated GFR > 60 Random Glucose 113 Lactic Acid 0.7 Calcium 9.6 Total Bilirubin 0.2 AST 13 ALT 13 Alkaline Phosphatase 56 Troponin I High Sens < 2.7 Total Protein 6.4 L Albumin 3.8 Influenza Type A (PCR) NEGATIVE Influenza Type B (PCR) NEGATIVE RSV RNA Qual (PCR) NEGATIVE SARS-CoV-2 RNA (RT-PCR) NEGATIVE Imaging Radiologist's Impressions: Impressions Chest X-Ray 03/17/24 04:20 IMPRESSION: Mild diffuse increased markings may be secondary to low lung volumes. Mild congestion cannot be excluded. Assessment and Plan (1) Hypoxia: Status: Acute (2) Acute exacerbation of chronic obstructive pulmonary disease: Status: Acute Plan 54-year-old female patient with past medical history significant for COPD/moderate persistent asthma, morbid obesity, bipolar disorder presented to ED due to symptoms of shortness of breath associated cough productive of yellow phlegm with no associated fever chills patient in the ED noted to be hypoxic with finger oximetry 89% on 2 L therefore being admitted for acute hypoxic respiratory failure due to acute COPD. Acute on chronic hypoxic respiratory failure due to acute exacerbation COPD/mild to moderate persistent asthma Will place on q.4 hours while awake DuoNeb updraft, IV steroids, IV doxycycline Wean oxygen as tolerated on 1 L of home oxygen at rest/2 L with activity, Follow clinical course Obstructive sleep apnea: As per patient not using CPAP at home , waiting for machine Tobacco use disorder counseling done, will place on nicotine patch 14 mg daily currently patient is smoking less than half pack per day History of bipolar disorder/anxiety/PTSD/borderline personality continue home medications. Morbid obesity recommend low-calorie diet and weight loss History of PE continue Eliquis DVT prophylaxis on Eliquis Full code Patient need to night inpatient hospitalization for treatment of acute on chronic hypoxic respiratory failure due to COPD exacerbation need IV steroids, and frequent updraft treatment with close clinical follow-up. Quality Stroke Does the patient have a stroke diagnosis?: No VTE Prior VTE?: No VTE Risk Level:: Medical - moderate - high VTE Device Contraindication: Treatment Not Indicated VTE Drug Contraindication: N/A - Med Ordered
[2024-03-17] MEDS: methylPREDNISolone Sod Succ 40 MG/ML VIAL IVPUSH ×2 (13:12→23:45)
[2024-03-17] MEDS: Albuterol/Iprat 2.5/0.5MG 3 ML AMPUL.NEB INHALE ×2 (15:20→21:16)
[2024-03-17] MEDS: Lithium Carbonate ER 450 MG TABLET.ER PO ×2 (15:39→23:01)
[2024-03-17] MEDS: Gabapentin 300 MG CAPSULE PO ×2 (15:40→23:01)
[2024-03-17] MEDS: 0.9 % Sodium Chloride Flush 3 ML SYRINGE IVFLUSH ×2 (16:46→23:02)
[2024-03-17] MEDS: Apixaban 5 MG TABLET PO (23:00)
[2024-03-17] MEDS: OLANZapine 10 MG TABLET PO (23:01)
[2024-03-17] MEDS: cloNIDine HCL 0.2 MG TABLET PO (23:01)
[2024-03-17] MEDS: rOPINIRole HCL 1 MG TABLET PO (23:01)
[2024-03-17] MEDS: Melatonin 3 MG TABLET PO (23:01)
[2024-03-18] VITALS (9 sets, daily range): BP systolic 95–135; BP diastolic 53–82; PULSE 68–86; RESP 18–20; TEMP 36.1–36.4; O2SAT 90–94
--- NOTE | 2024-03-18 02:57 | PC.NURSE ---
Pt arrived to room 373 from the ED at 2100, alert and oriented, still with SOB on exertion or ambulation, LS has scattered expiratory wheezing, tolerating O2 at 5L/min via NC, pt used a rolling walker as baseline and claimed she had episodes of falling or tripping at home, advised safety precautions from fall, pt refused bed alarm.
[2024-03-18] MEDS: Omeprazole 20 MG CAPSULE.DR PO (05:53)
[2024-03-18] MEDS: Albuterol/Iprat 2.5/0.5MG 3 ML AMPUL.NEB INHALE ×3 (07:16→19:41)
[2024-03-18] MEDS: 0.9 % Sodium Chloride Flush 3 ML SYRINGE IVFLUSH ×3 (09:53→22:37)
[2024-03-18] MEDS: Cyanocobalamin (Vitamin B-12) 1,000 MCG TABLET 1000 MCG PO (09:54)
[2024-03-18] MEDS: Gabapentin 300 MG CAPSULE PO ×3 (09:54→23:03)
[2024-03-18] MEDS: Apixaban 5 MG TABLET PO ×2 (09:54→23:03)
[2024-03-18] MEDS: Ferrous Sulfate 324 MG TABLET.DR PO (09:54)
[2024-03-18] MEDS: Lithium Carbonate ER 450 MG TABLET.ER PO ×3 (09:54→23:04)
[2024-03-18] MEDS: Cholecalciferol (Vitamin D3) 25 MCG TABLET PO (09:54)
[2024-03-18] MEDS: valACYclovir HCL 500 MG TABLET PO (09:55)
[2024-03-18] MEDS: Doxycycline Hyclate 100 MG in 0.9 % Sodium Chloride 250 ML 166.67 MG IV ×2 (10:05→22:42)
--- NOTE | 2024-03-18 11:44 | HO.PM.IMPN ---
Subjective Subjective Date of Service: 03/18/24 Interval History: Being followed for COPD exacerbation complaining of persistent shortness of breath, and cough, no fevers no chills, tolerating diet no nausea, no vomiting, no abdominal pain, no other acute issues overnight requiring 3 L of oxygen, at home use 1 L at rest and 2 L with activity. Review of Systems All other system reviewed and negative. Physical Exam Vital Signs: Vital Signs: Last Vital Signs Temp 97.0 F 03/18/24 07:36 Pulse 78 03/18/24 07:36 Resp 20 03/18/24 07:36 BP 135/82 03/18/24 07:36 Pulse Ox 94 03/18/24 07:36 O2 Del Method Nasal Cannula 03/18/24 07:36 O2 Flow Rate 4 03/18/24 07:36 Oxygen Flow Rate 2 03/17/24 02:30 BMI result Body Mass Index 46.3 Const: Other: Gen: Awake alert x3, no acute distress HEENT: sclera anicteric, moist mucus membranes Neck: supple Lungs: bilateral expiratory wheeze, no use of accessory muscles Heart: regular rate and rhythm, no murmurs Abd: soft, non-tender, non-distended, obese, bowel sounds audible Ext: no edema Skin: warm/well-perfused/no rash Neuro: alert and oriented x3, no focal findings Psych: appropriate affect Objective Data Active Medications Acetaminophen (Acetaminophen Supp 650 Mg Supp.Rect) 650 mg RI Q6H PRN PRN Reason: Pain, Mild (Pain Scale 1-3) Al Hydroxide/Mg Hydroxide (Magnesium Hydrox/Alum Hydrox 30 Ml Oral.Susp) 30 ml PO Q4H PRN PRN Reason: Heartburn/Nausea Albuterol/Ipratropium (Albuterol/Iprat 2.5/0.5mg 3 Ml Ampul.Neb) 3 ml INHALE RQ4H WHILE AWAKE [facility] Last Admin: 03/18/24 07:16 Dose: 3 ml Documented By: MARIYA Apixaban (Apixaban 5 Mg Tablet) 5 mg PO BID [facility] Last Admin: 03/18/24 09:54 Dose: 5 mg Documented By: MERVIN Clonidine HCl (Clonidine Hcl 0.2 Mg Tablet) 0.2 mg PO BEDTIME [facility]; Protocol Last Admin: 03/17/24 23:01 Dose: 0.2 mg Documented By: PAVAN Cyanocobalamin (Cyanocobalamin (Vitamin B-12) 1,000 Mcg Tablet) 1,000 mcg PO DAILY [facility] Last Admin: 03/18/24 09:54 Dose: 1,000 mcg Documented By: MERVIN Docusate Sodium (Docusate Sodium 100 Mg Capsule) 100 mg PO DAILY PRN PRN Reason: Constipation Ferrous Sulfate (Ferrous Sulfate 324 Mg Tablet.) 324 mg PO DAILY [facility] Last Admin: 03/18/24 09:54 Dose: 324 mg Documented By: MERVIN Gabapentin (Gabapentin 300 Mg Capsule) 300 mg PO DAILY PRN PRN Reason: breakthrough neuropathy Gabapentin (Gabapentin 300 Mg Capsule) 300 mg PO TID [facility] Last Admin: 03/18/24 09:54 Dose: 300 mg Documented By: MERVIN Doxycycline Hyclate 100 mg/ (Sodium Chloride) 250 mls @ 166.67 mls/hr IV Q12H [facility] Last Admin: 03/18/24 10:05 Dose: 166.67 mls/hr Documented By: MERVIN Seymour Carbonate (Seymour Carbonate Er 450 Mg Tablet.Er) 450 mg PO TID [facility] Last Admin: 03/18/24 09:54 Dose: 450 mg Documented By: MERVIN Loratadine (Loratadine 10 Mg Tablet) 10 mg PO DAILY PRN PRN Reason: Allergy Symptoms Magnesium Hydroxide (Milk Of Magnesia 30 Ml Oral.Susp) 30 ml PO DAILY PRN PRN Reason: Constipation Melatonin (Melatonin 3 Mg Tablet) 3 mg PO BEDTIME [facility] Last Admin: 03/17/24 23:01 Dose: 3 mg Documented By: PAVAN Methylprednisolone Sodium Succinate (Methylprednisolone Sod Succ 40 Mg/Ml Vial) 40 mg IVPUSH Q12H [facility] Last Admin: 03/17/24 23:45 Dose: 40 mg Documented By: PAVAN Nicotine (Nicotine 14 Mg Patch.Td24) 14 mg TRANSDERMA DAILY [facility] Olanzapine (Olanzapine 10 Mg Tablet) 10 mg PO BEDTIME [facility] Last Admin: 03/17/24 23:01 Dose: 10 mg Documented By: PAVAN Omeprazole (Omeprazole 20 Mg Capsule.) 20 mg PO DAILY@0630 [facility] Last Admin: 03/18/24 05:53 Dose: 20 mg Documented By: PAVAN Ondansetron HCl (Ondansetron Hcl 4 Mg/2 Ml Vial) 4 mg IVPUSH Q8H PRN PRN Reason: Nausea and Vomiting Ropinirole HCl (Ropinirole Hcl 1 Mg Tablet) 1 mg PO BEDTIME [facility] Last Admin: 03/17/24 23:01 Dose: 1 mg Documented By: AIDEILGabriel Sodium Chloride (0.9 % Sodium Chloride Flush 3 Ml Syringe) 3 ml IVFLUSH QSHIFT [facility] Last Admin: 03/18/24 09:53 Dose: 3 ml Documented By: MERVIN Valacyclovir HCl (Valacyclovir Hcl 500 Mg Tablet) 500 mg PO DAILY [facility] Last Admin: 03/18/24 09:55 Dose: 500 mg Documented By: MERVIN Vitamin D (Cholecalciferol (Vitamin D3) 25 Mcg Tablet) 25 mcg PO DAILY [facility] Last Admin: 03/18/24 09:54 Dose: 25 mcg Documented By: MERVIN Labs 03/17/24 04:06 03/17/24 04:06 Microbiology Microbiology Results: Microbiology 03/17/24 10:05 Blood Culture - Preliminary Blood - Venous Assessment and Plan (1) Acute exacerbation of chronic obstructive pulmonary disease: Status: Acute Plan 54-year-old female patient with past medical history significant for COPD/moderate persistent asthma, morbid obesity, bipolar disorder presented to ED due to symptoms of shortness of breath associated cough productive of yellow phlegm with no associated fever chills patient in the ED noted to be hypoxic with finger oximetry 89% on 2 L therefore being admitted for acute hypoxic respiratory failure due to acute COPD. Acute on chronic hypoxic respiratory failure due to acute exacerbation COPD/mild to moderate persistent asthma. Persistent shortness of breath Continue DuoNeb q.4 hours while awake and prn, IV steroids, IV doxycycline, cough medication Wean oxygen as tolerated on 1 L of home oxygen at rest/2 L with activity, Follow clinical course Obstructive sleep apnea: not using CPAP at home , waiting for machine Tobacco use disorder counseling done, on nicotine patch 14 mg daily currently patient is smoking less than half pack per day History of bipolar disorder/anxiety/PTSD/borderline personality continue home medications. Morbid obesity recommend low-calorie diet and weight loss History of PE continue Eliquis DVT prophylaxis on Eliquis Full code Patient need to night inpatient hospitalization for treatment of acute on chronic hypoxic respiratory failure due to COPD exacerbation need IV steroids, and frequent updraft treatment with close clinical follow-up. Quality Stroke Does the patient have a stroke diagnosis?: No VTE Prior VTE?: No VTE Risk Level:: Medical - moderate - high VTE Device Contraindication: Treatment Not Indicated VTE Drug Contraindication: N/A - Med Ordered
[2024-03-18] MEDS: methylPREDNISolone Sod Succ 40 MG/ML VIAL IVPUSH (13:21)
[2024-03-18] MEDS: Nicotine 14 MG PATCH.TD24 TRANSDERMA (13:22)
--- NOTE | 2024-03-18 16:03 | MHC.CM.PN ---
PT REPORTS SHE LIVES ALONE AND HAS [facility] SHE IS ALSO ACTIVE WITH [facility] FOR CM AND [facility] FOR MED MANAGEMENT PT USES A ROLLATOR TO AMBULATE HCP ON FILE PCP: KEVEN MARQUEZ DCP: [facility] PT WILL NEED SHUTTLE VS L[facility] TRANSPORT
[2024-03-18] MEDS: guaiFENesin DM 200/20/10 ML 10 ML SYRUP PO ×2 (16:06→23:02)
[2024-03-18] MEDS: Melatonin 3 MG TABLET PO (23:03)
[2024-03-18] MEDS: OLANZapine 10 MG TABLET PO (23:03)
[2024-03-18] MEDS: rOPINIRole HCL 1 MG TABLET PO (23:03)
[2024-03-18] MEDS: cloNIDine HCL 0.2 MG TABLET PO (23:04)
[2024-03-19] MEDS: methylPREDNISolone Sod Succ 40 MG/ML VIAL IVPUSH (00:29)
[2024-03-19 04:00] VITALS: BP 119/66; PULSE 75; RESP 20; TEMP 36.1; O2SAT 92
[2024-03-19] MEDS: Omeprazole 20 MG CAPSULE.DR PO (06:15)
[2024-03-19 07:23] VITALS: BP 123/76; PULSE 70; RESP 18; TEMP 36.1; O2SAT 93
[2024-03-19] MEDS: Albuterol/Iprat 2.5/0.5MG 3 ML AMPUL.NEB INHALE (07:34)
[2024-03-19 07:36] VITALS: PULSE 77; RESP 16; O2SAT 90
[2024-03-19] MEDS: guaiFENesin DM 200/20/10 ML 10 ML SYRUP PO (09:21)
[2024-03-19] MEDS: 0.9 % Sodium Chloride Flush 3 ML SYRINGE IVFLUSH (09:21)
[2024-03-19] MEDS: Apixaban 5 MG TABLET PO (09:22)
[2024-03-19] MEDS: Cholecalciferol (Vitamin D3) 25 MCG TABLET PO (09:22)
[2024-03-19] MEDS: Gabapentin 300 MG CAPSULE PO (09:22)
[2024-03-19] MEDS: Lithium Carbonate ER 450 MG TABLET.ER PO (09:22)
[2024-03-19] MEDS: Ferrous Sulfate 324 MG TABLET.DR PO (09:22)
[2024-03-19] MEDS: valACYclovir HCL 500 MG TABLET PO (09:22)
[2024-03-19] MEDS: Cyanocobalamin (Vitamin B-12) 1,000 MCG TABLET 1000 MCG PO (09:22)
--- NOTE | 2024-03-19 09:23 | MHC.CM.PN ---
PATIENT TELLS CM THAT SHE PLANS OT BE DC TODAY. SHE HAS HOME O2. SHE WILL NEED ASSIST WITH TRANSPORT AT TIME OF DC. CASE MANAGEMENT FOLLOWING.
--- NOTE | 2024-03-19 09:57 | MHC.CLN ---
NUTRITION CONSULT FOR POOR PO. INTAKE PER DOC 100% . NO ADDITIONAL NUTRITION INTERVENTIONS.
--- NOTE | 2024-03-19 10:38 | PM.DS ---
DS: Providers Provider Date of Service: 03/19/24 Date of admission: 03/17/24 12:15 Primary care physician: Unknown Physician DS: Diagnosis Discharge Diagnosis (1) Acute exacerbation of chronic obstructive pulmonary disease: Status: Acute DS: Summary Hospital Course Hospital Course: history of presenting illness: Date of Service: 03/17/24 Chief Complaint: Shortness of breath 54-year-old female with past medical history significant for COPD/asthma overlap syndrome on 1 L of home oxygen at rest and 2 L with activity, history of fibromyalgia, osteoarthritis, history of recurrent UTI, polysubstance use disorder, borderline personality disorder, bipolar disorder anxiety with frequent hospitalization to [facility] presented to ED today with symptoms of shortness of breath of 4 days' duration associated with cough productive of yellowish phlegm with no associated fevers, no chills, no sick contacts, no history of travel, denies allergy symptoms of runny nose, in emergency room patient noted to be hypoxic with finger oximetry of 89 % on 2 L of nasal cannula, chest x-ray showed mild diffuse increased markings question related to low lung volumes, no infiltrates noted patient treated with DuoNeb updraft, IV steroids and IV doxycycline% symptoms persisted and patient remained hypoxic she is being admitted to [facility] for treatment of acute on ch. hypoxic respiratory failure due to acute COPD exacerbation. Hospital course 54-year-old female patient with past medical history significant for COPD/moderate persistent asthma, morbid obesity, bipolar disorder presented to ED due to symptoms of shortness of breath, cough productive of yellow phlegm with no associated fever, chills, patient in the ED noted to be hypoxic with finger oximetry 89% on 2 L therefore admitted for acute hypoxic respiratory failure due to acute COPD and mild to moderate persistent asthma exacerbation , she was treated with IV steroids, DuoNeb q.4 hours while awake and prn, cough medication and doxycycline, she responded well to above treatment, she was strongly recommended to abstain from smoking and has been placed on nicotine patch, her oxygenation improved currently on 2 L finger oximetry 93 94% therefore she is being discharged home on short course of steroids, recommended to use DuoNeb 4 times a day for next few days and is being discharged on 3 more days of doxycycline to finish 5 day course. In regard to Obstructive sleep apnea, patient is waiting for CPAP machine, recommend follow-up with PCP/pulmonology. History of bipolar disorder/anxiety/PTSD/borderline personality continue home medications. Morbid obesity recommend low-calorie diet and weight loss History of PE continue Eliquis Time Attestation Discharge Coordination Time (in mins): 35 Quality: Safe Use of Opioids Does Pt have an Active Cancer Diagnosis on the Problem List?: No Quality: Stroke Does the patient have a stroke diagnosis?: No Physical Exam Vital Signs: Vital Signs: Last Vital Signs Temp 96.9 F 03/19/24 07:23 Pulse 77 03/19/24 07:36 Resp 16 03/19/24 07:36 BP 123/76 03/19/24 07:23 Pulse Ox 93 03/19/24 07:23 O2 Del Method Nasal Cannula 03/19/24 07:23 O2 Flow Rate 2 03/19/24 07:23 Oxygen Flow Rate 2 03/17/24 02:30 BMI result Body Mass Index 46.3 Const: Other: Gen: Awake alert x3, no acute distress HEENT: sclera anicteric, moist mucus membranes Neck: supple Lungs: Clear to auscultation, no wheeze, no rhonchi, no use of accessory muscles Heart: regular rate and rhythm, no murmurs Abd: soft, non-tender, non-distended, obese, bowel sounds audible Ext: no edema Skin: warm/well-perfused/no rash Neuro: alert and oriented x3, no focal findings Psych: appropriate affect DS: Data Data Completed and Pending Completed studies during hospitalization [Text1]: Procedures Assistance with Respiratory Ventilation, Less than 24 Consecutive Hours, Continuous Positive Airway Pressure (02/20/24) Drainage of Left Parotid Gland, Percutaneous Approach, Diagnostic (11/09/21) Drainage of Neck, Percutaneous Approach, Diagnostic (03/17/22) Excision of Left Parotid Gland, Percutaneous Approach, Diagnostic (03/17/22) Introduction of Remdesivir Anti-infective into Peripheral Vein, Percutaneous Approach, [employer] (06/01/22) Labs on day of discharge: Preliminary micro results at discharge 03/17/24 10:05 Blood Culture - Preliminary Blood - Venous No growth after 48 hours. 03/17/24 10:05 Blood Culture - Preliminary Blood - Venous No growth after 24 hours. Discharge Plan Discharge Anticipated Discharge Date/Time: 03/19/24 09:44 Patient Disposition: Home Health Service Discharge Diagnosis: Acute on chronic hypoxic respiratory failure due to acute exacerbation of COPD Referrals: [facility] [Outside] Physician,Unknown J [Primary Care Provider] - 1 Week Discharge Medications: New doxycycline monohydrate 100 mg capsule 100 mg PO BID Qty: 7 0RF prednisone 10 mg tablet 10 mg PO DAILY Qty: 5 0RF Continued ropinirole 1 mg Tablet 1 mg PO BEDTIME Qty: 30 0RF olanzapine 10 mg Tablet 10 mg PO BEDTIME Qty: 30 0RF clonidine HCl 0.2 mg Tablet 0.2 mg PO BEDTIME Qty: 30 0RF Protocol: Hold for SBP< HOLD for SBP < : 90 albuterol sulfate [Ventolin HFA] 90 mcg/actuation Hfa Aerosol Inhaler 2 puff inhalation Q4H PRN (Reason: shortness of breath or wheezing) Qty: 6.7 0RF tiotropium bromide [Spiriva with HandiHaler] 18 mcg Capsule, W/Inhalation Device 18 mcg inhalation RDAILY Qty: 20 0RF ferrous sulfate 324 mg (65 mg iron) Tablet,Delayed Release (Dr/Ec) 324 mg PO DAILY Qty: 30 0RF cetirizine 10 mg Tablet 10 mg PO DAILY PRN (Reason: Allergy Symptoms) melatonin 3 mg Tablet 3 mg PO BEDTIME valacyclovir 500 mg Tablet 500 mg PO DAILY omeprazole 20 mg Capsule,Delayed Release(Dr/Ec) 20 mg PO DAILY@0630 gabapentin 300 mg capsule 300 mg PO TID cholecalciferol (vitamin D3) [Vitamin D3] 25 mcg (1,000 unit) tablet 25 mcg PO DAILY Eliquis 5 mg Tablet 5 mg PO BID nicotine 21 mg/24 hr Patch 24 Hour 21 mg transdermal DAILY Qty: 28 0RF gabapentin 300 mg capsule 300 mg PO DAILY PRN (Reason: breakthrough neuropathy) lithium carbonate 450 mg tablet extended release 450 mg PO TID cyanocobalamin (vitamin B-12) [Vitamin B-12] 1,000 mcg tablet 1,000 mcg PO DAILY ipratropium-albuterol 0.5 mg-3 mg(2.5 mg base)/3 mL solution for nebulization 3 ml inhalation RQ6H PRN (Reason: Shortness Of Breath Or Wheezing) Discharge Orders: Discharge Order (Routine); Ordered 03/19/24 Ordered By: Eric Cavazos Diet: Advance to usual diet Activity on Discharge: As tolerated Stand Alone Forms: Patient Portal Discharge page Print Language: Guatem[place] Care Plan Goals: Take DuoNeb updraft 4 times a day Finished course of doxycycline as prescribed Take prednisone 10 mg 1 tablet daily for 5 more days Complete abstinence from smoking use nicotine patch Use home oxygen Health Concerns: Tobacco use disorder Mood disorder Plan of Treatment: Outpatient follow-up with primary care physician call for appointment Assessment: As above
--- NOTE | 2024-03-19 11:13 | MHC.CM.PN ---
PATIENT IS DC HOME VIA [facility]UTTLE SERV[facility]. RN AWARE
== END 2024-03-19 11:10 | disposition home health service (06) | DRG 140 ==
LOC: HO.ED 09:47 → HO.EDOVER 12:32 → HO.S3 19:11
PROVIDERS: Admitting Provider Hospitalist; Emergency Provider Emergency Medicine; PCP Internal Medicine; Visit Provider Hospitalist
DX: J44.1 Chronic obstructive pulmonary disease with (acute) exacerbation (principal); J96.21 Acute and chronic respiratory failure with hypoxia; Z99.81 Dependence on supplemental oxygen; E66.01 Morbid (severe) obesity due to excess calories; F17.210 Nicotine dependence, cigarettes, uncomplicated; F31.9 Bipolar disorder, unspecified; F41.9 Anxiety disorder, unspecified; G47.33 Obstructive sleep apnea (adult) (pediatric); F43.10 Post-traumatic stress disorder, unspecified; J45.31 Mild persistent asthma with (acute) exacerbation; Z20.822 Contact with and (suspected) exposure to COVID-19; Z86.711 Personal history of pulmonary embolism; Z68.42 Body mass index [BMI] 45.0-49.9, adult; Z71.6 Tobacco abuse counseling; Z79.01 Long term (current) use of anticoagulants; Z79.899 Other long term (current) drug therapy
CPT/HCPCS: 0241U; 36415; 71045; 80053; 83605; 84484; 85025; 87040; 93005; 94640; 99221; 99285; J2919; J3475

== ENCOUNTER → 2024-03-17 04:29 | Outpatient (BNV) | payer MEDICAID, SELFPAY | PROVIDERS: Emergency Provider Emergency Medicine; Visit Provider Internal Medicine Cardiovascular Disease | DX: R94.31 Abnormal electrocardiogram [ECG] [EKG] (principal) | CPT/HCPCS: 93010 ==

== ENCOUNTER → 2024-03-17 12:15 | Outpatient (BNV) | payer MEDICAID, SELFPAY | PROVIDERS: Admitting Provider Hospitalist; Emergency Provider Emergency Medicine; Visit Provider Hospitalist | DX: J44.1 Chronic obstructive pulmonary disease with (acute) exacerbation (principal); R09.02 Hypoxemia | CPT/HCPCS: 99223; 99232; 99239 ==

== ENCOUNTER 2024-03-28 16:56 | Emergency (ER) | payer OTHER, SELFPAY ==
[2024-03-28 17:01] VITALS: BP 128/78; PULSE 100; O2SAT 95
[2024-03-28 17:19] VITALS: BMI 40.8
--- NOTE | 2024-03-28 17:25 | ED_ITS ---
HPI - Psych General Chief Complaint: Psychiatric Symptoms Stated Complaint: SI PER EMS Time Seen by Provider: 03/28/24 17:01 Source: patient Mode of arrival: ambulatory Limitations: no limitations History of Present Illness ED Provider: Dr. Priscila Lynn HPI Narrative: Patient comes to emergency room by ambulance complaining of suicidal ideation. Patient states that she has anniversary in her family, siblings. Patient states that she did not used any medications or drugs to hurt herself. Patient states that she contemplated overdosing with her prescribed gabapentin but she did not take any additional doses. Patient requesting to be seen by the care team. Related Data Home Medications ?Medication ?Instructions ?Recorded ?Confirmed lithium carbonate 450 mg 450 mg PO TID 05/14/23 03/17/24 tablet,extended release cyanocobalamin (vitamin B-12) 1,000 mcg PO DAILY 06/11/23 03/17/24 1,000 mcg tablet (Vitamin B-12) ipratropium 0.5 mg-albuterol 3 mg 3 ml inhalation RQ6H PRN Shortness 06/11/23 03/17/24 (2.5 mg base)/3 mL nebulization Of Breath Or Wheezing soln cetirizine 10 mg tablet 10 mg PO DAILY PRN Allergy Symptoms 12/19/23 03/17/24 melatonin 3 mg tablet 3 mg PO BEDTIME 12/19/23 03/17/24 valacyclovir 500 mg tablet 500 mg PO DAILY 12/19/23 03/17/24 omeprazole 20 mg capsule,delayed 20 mg PO DAILY@0630 12/29/23 03/17/24 release apixaban 5 mg tablet (Eliquis) 5 mg PO BID 02/20/24 03/17/24 cholecalciferol (vitamin D3) 25 25 mcg PO DAILY 02/20/24 03/17/24 mcg (1,000 unit) tablet (Vitamin D3) gabapentin 300 mg capsule 300 mg PO TID 02/20/24 03/17/24 gabapentin 300 mg capsule 300 mg PO DAILY PRN breakthrough 03/17/24 03/17/24 neuropathy Previous Rx's ?Medication ?Instructions ?Recorded albuterol sulfate 90 mcg/actuation 2 puff inhalation Q4H PRN 03/22/23 aerosol inhaler (Ventolin HFA) shortness of breath or wheezing #6.7 grams clonidine HCl 0.2 mg tablet 0.2 mg PO BEDTIME #30 tabs 03/22/23 ferrous sulfate 324 mg (65 mg 324 mg PO DAILY #30 tabs 03/22/23 iron) tablet,delayed release olanzapine 10 mg tablet 10 mg PO BEDTIME #30 tabs 03/22/23 ropinirole 1 mg tablet 1 mg PO BEDTIME #30 tabs 03/22/23 tiotropium bromide 18 mcg capsule 18 mcg inhalation RDAILY #20 03/22/23 with inhalation device (Spiriva inhalations with HandiHaler) nicotine 21 mg/24 hr daily 21 mg transdermal DAILY #28 ea 02/22/24 transdermal patch doxycycline monohydrate 100 mg 100 mg PO BID #7 caps 03/19/24 capsule prednisone 10 mg tablet 10 mg PO DAILY #5 tabs 03/19/24 Allergies Allergy/AdvReac Type Severity Reaction Status Date / Time aspirin Allergy Mild Anaphylaxis Verified 03/28/24 17:20 ampicillin Allergy Rash Verified 03/28/24 17:20 Penicillins Allergy Anaphylaxis Verified 03/28/24 17:20 latex AdvReac Rash Verified 03/28/24 17:20 Latex, Natural Rubber AdvReac Rash Verified 03/28/24 17:20 seafood AdvReac Anaphylaxis Verified 03/28/24 17:20 Sulfa (Sulfonamide AdvReac Hives Verified 03/28/24 17:20 Antibiotics) Review of Systems 2 Review of Systems: Constitutional : No Weight loss, No Fever, No Chills, No Night Sweats, No Fatigue, No Malaise ENT/Mouth : No Hearing loss, No Ear Pain, No Nasal Congestion, No Sinus Pain, No Hoarseness, No sore throat, No Rhinorrhea, No Swallowing Difficulty Eyes: No Eye Pain, No Swelling, No Redness, No Foreign Body, No Discharge, No Vision Changes Cardiovascular : No Chest Pain, No SOB, No Dyspnea on Exertion, No Orthopnea, No Edema, No Palpitations Respiratory : No Cough, No Sputum, No Wheezing, No Smoke Exposure, No Dyspnea Gastrointestinal : No Nausea, No Vomiting, No Diarrhea, No Constipation, No abdominal Pain, No Hematochezia, No Melena Genitourinary : no irregular bleeding, No Dysuria, No Urinary Frequency, No Hematuria, No Urinary Incontinence, No Urgency, No Flank Pain, No Urinary Flow Changes, No Hesitancy Musculoskeletal : No joint pain, No Myalgias, No Joint Swelling Skin : No Skin Lesions, No rash Neuro : No Weakness, No Numbness, No Paresthesias, No Loss of Consciousness, No Dizziness, No Headache Psych : No Anxiety/Panic, No Depression, Denies SI or HI Heme/Lymph: No Bruising, No Bleeding,No Lymphadenopathy Endocrine : No Polyuria, No Polydipsia, No Temperature Intolerance ON LICENSE OF [facility] Past Medical History Medical History Morbid obesity Intentional overdose Acute bronchospasm Bipolar I disorder with depression Overdose on Tylenol Suicide attempt Asthma COPD (chronic obstructive pulmonary disease) Chronic lung disease Neoplasm of parotid gland Depression 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 Drug abuse Bipolar I disorder Post traumatic stress disorder (PTSD) Tobacco use disorder FABIOLA (obstructive sleep apnea) Borderline personality disorder Intermittent explosive disorder Asthma exacerbation in COPD Herpes Tobacco use Bipolar disorder COPD (chronic obstructive pulmonary disease) Surgical History History of ankle surgery History of back surgery Hx of cholecystectomy History of appendectomy Family History Family History Mother COPD (chronic obstructive pulmonary disease) Social History Social History Household Members: Caregiver Household Members Other:: So Housing: Apartment Housing Other:: Sleeps on the couch at [facility] house Do you presently have visiting nurse or other home services: No Unable to assess alcohol history related to: Unknown Alcohol intake: former Comment: 1:1sitter Patient Tobacco Use Status: Current everyday Tobacco user Tobacco use type: Cigarette and Smokeless Tobacco Cigarette Packs Per Day: 1 Cigarettes Per Day: 3 Years Smoked: 20 Smoked in Last 30 Days: Yes e-Cigarette/Vaping Use: Never Used Second Hand Smoke Exposure: No Use of substances other than those prescribed or required for medical reasons: No Substance Use Type: Crack/Cocaine Advance Directives: Yes Advance Directives on File: Yes Advance Directives Date on File: 06/17/22 service: No Current occupational status: unemployed and disabled Sexual orientation: Straight/Heterosexual Physical Exam 2 Vital Signs: Vital Signs: Last Vital Signs Temp 98.2 F 03/28/24 19:00 Pulse 89 03/28/24 19:00 Resp 18 03/28/24 19:00 BP 110/64 03/28/24 19:00 Pulse Ox 93 03/28/24 19:00 O2 Del Method Room Air 03/28/24 19:00 BMI result Body Mass Index 40.8 Const: Other: Appearance: Alert. Oriented X3. No acute distress. Eyes: Pupils equal, round and reactive to light. ENT: Pharynx normal. Neck: Normal inspection. Neck supple. No lymph nodes noted. No crepitus CVS: Normal heart rate and rhythm. Pulses normal. Normal S1 and S2 Respiratory: No respiratory distress. Breath sounds normal. No Wheezing. No rales Abdomen: Soft and nontender. No rigidity. No distention. Skin: Skin warm and dry. Normal skin color. Normal skin turgor. Extremities: No lower extremity edema. No Lacerations. No Rash Neuro: Oriented X 3. No motor deficit. No sensory deficit. Moving all extremities. No slurred speech. CN 2 through 12 grossly intact Psych: calm, cooperative, normal affect Course Course Course Narrative: - all of patient's labs pending. - Care team consult pending - physician observation started at 17:25 Medical Decision Making Medical Decision Making MDM Narrative: - My interpretation of labs: Hematology and chemistry at baseline, urine toxicology negative for drugs and ETOH - care team evaluated the patient: Recommendations are to keep the patient for re-evaluation in the morning. Patient has history of gabapentin overdose. Lab Data 03/28/24 18:02 03/28/24 18:02 Labs: Lab Results 03/28/24 03/28/24 03/28/24 Range/Units 17:53 17:59 18:02 WBC 10.0 (4.8-10.8) X10*3/uL RBC 4.52 (4.20-5.50) X10*6/uL Hgb 14.3 (12.0-16.0) g/dl Hct 45.5 (37.0-47.0) % MCV 100.7 H (80.0-98.0) fL MCH 31.6 (27.0-33.0) pg MCHC 31.4 (31.0-35.0) g/dl RDW 13.9 (11.0-16.0) % Plt Count 267 (160-400) X10*3/uL MPV 9.5 (9.4-12.3) fL Immature Gran % (Auto) 0.4 (0.0-0.4) % Neut % (Auto) 68.3 (45-73) % Lymph % (Auto) 23.4 (20-40) % [place]ary % (Auto) 5.8 (2-11) % Eos % (Auto) 1.2 (0-4) % Baso % (Auto) 0.9 (0-2) % Lymph # (Auto) 2.3 (1.2-4.9) X10*3/uL Geary # (Auto) 0.6 (0.1-1.2) X10*3/uL Eos # (Auto) 0.1 (0.0-0.4) X10*3/uL Baso # (Auto) 0.1 (0.0-0.2) X10*3/uL Abs Immat Gran (auto) 0.04 H (0.00-0.03) X10*3/uL Absolute Neuts (auto) 6.8 (2.0-8.3) x10*3/uL Absolute Nucleated RBC 0.000 (0.0-0.012) X10*3/uL Nucleated RBC % (auto) 0.0 (0.0-0.2) /100WBC Sodium 141 (135-145) mmol/L Potassium 4.0 (3.3-5.1) mmol/L Chloride 104 (96-108) mmol/L Carbon Dioxide 31 H (22-29) mmol/L Anion Gap 10 L (12-20) BUN 11 (9-16) mg/dL Creatinine 0.72 (0.5-1.4) mg/dL Estim Creat Clear Calc 116.2 Estimated GFR > 60 Random Glucose 114 (60-115) mg/dL Calcium 10.3 H D (8.4-10.2) mg/dL Total Bilirubin 0.2 (0.0-1.0) mg/dL Direct Bilirubin < 0.2 (0.0-0.5) mg/dL AST 9 (5-31) U/L ALT 10 (0-31) U/L Alkaline Phosphatase 57 (39-117) U/L Total Protein 6.6 (6.5-8.0) g/dL Albumin 4.1 (3.5-5.0) g/dL Hold Yellow Top See Note Urine Color Yellow Urine Appearance Clear Urine pH 7.0 (5.0-9.0) Ur Specific [place] 1.015 (1.005-1.025) Urine Protein Negative (Neg-Trace) mg/dL Urine Glucose (UA) Negative (Negative) mg/dL Urine Ketones Negative (Negative) mg/dL Urine Blood Negative (Negative) Urine Nitrite Negative (Negative) Ur Leukocyte Esterase Negative (Negative) Urine Opiates Screen Not Detected (Not Detect) Ur Buprenorphine Scrn Not Detected (Not Detect) ng/mL Ur Oxycodone Screen Not Detected (Not Detect) ng/mL Urine Methadone Screen Not Detected (Not Detect) ng/mL Urine Fentanyl Screen Not Detected (Not Detect) Ur Barbiturates Screen Not Detected (Not Detect) Ur Phencyclidine Scrn Not Detected (Not Detect) Ur Amphetamines Screen Not Detected (Not Detect) U Benzodiazepines Scrn Not Detected (Not Detect) Urine Cocaine Screen Not Detected (Not Detect) U Marijuana (THC) Screen Not Detected (Not Detect) Ethyl Alcohol < 10 mg/dL Discharge Plan Discharge Clinical Impression: Suicidal ideation Prescriptions: No Action ropinirole 1 mg Tablet 1 mg PO BEDTIME Qty: 30 0RF olanzapine 10 mg Tablet 10 mg PO BEDTIME Qty: 30 0RF clonidine HCl 0.2 mg Tablet 0.2 mg PO BEDTIME Qty: 30 0RF Protocol: Hold for SBP< HOLD for SBP < : 90 albuterol sulfate [Ventolin HFA] 90 mcg/actuation Hfa Aerosol Inhaler 2 puff inhalation Q4H PRN (Reason: shortness of breath or wheezing) Qty: 6.7 0RF tiotropium bromide [Spiriva with HandiHaler] 18 mcg Capsule, W/Inhalation Device 18 mcg inhalation RDAILY Qty: 20 0RF ferrous sulfate 324 mg (65 mg iron) Tablet,Delayed Release (Dr/Ec) 324 mg PO DAILY Qty: 30 0RF cetirizine 10 mg Tablet 10 mg PO DAILY PRN (Reason: Allergy Symptoms) melatonin 3 mg Tablet 3 mg PO BEDTIME valacyclovir 500 mg Tablet 500 mg PO DAILY omeprazole 20 mg Capsule,Delayed Release(Dr/Ec) 20 mg PO DAILY@0630 gabapentin 300 mg capsule 300 mg PO TID cholecalciferol (vitamin D3) [Vitamin D3] 25 mcg (1,000 unit) tablet 25 mcg PO DAILY Eliquis 5 mg Tablet 5 mg PO BID nicotine 21 mg/24 hr Patch 24 Hour 21 mg transdermal DAILY Qty: 28 0RF gabapentin 300 mg capsule 300 mg PO DAILY PRN (Reason: breakthrough neuropathy) doxycycline monohydrate 100 mg capsule 100 mg PO BID Qty: 7 0RF prednisone 10 mg tablet 10 mg PO DAILY Qty: 5 0RF lithium carbonate 450 mg tablet extended release 450 mg PO TID cyanocobalamin (vitamin B-12) [Vitamin B-12] 1,000 mcg tablet 1,000 mcg PO DAILY ipratropium-albuterol 0.5 mg-3 mg(2.5 mg base)/3 mL solution for nebulization 3 ml inhalation RQ6H PRN (Reason: Shortness Of Breath Or Wheezing) Interventions: [place]-Suicide Risk Severity Scale Last Done: 03/28/24 17:21 Print Language: [place]e
[2024-03-28 18:03] LABS: Appearance Urine Clear; Color Urine Yellow; Glucose Urine UA Negative (Negative); Leukocyte Esterase Urine Negative (Negative); Nitrite Urine Negative (Negative); Specific Gravity - Urine 1.015 (1.005-1.025); Urine Blood Negative (Negative); Urine Ketones Negative (Negative); Urine Protein Negative (Neg-Trace)
[2024-03-28 18:05] LABS: MANUAL DIFF FLAG NO
[2024-03-28 18:11] LABS: Basophils Absolute Auto 0.1 X10*3/uL (0.0-0.2); Basophils Percent Auto 0.9 % (0-2); Eosinophils Absolute Auto 0.1 X10*3/uL (0.0-0.4); Eosinophils Percent Auto 1.2 % (0-4); Hematocrit 45.5 % (37.0-47.0); Hemoglobin 14.3 g/dl (12.0-16.0); Imm Gran Abs Auto 0.04 X10*3/uL (0.00-0.03); Imm Gran Pct Auto 0.4 % (0.0-0.4); Lymphocytes Absolute Auto 2.3 X10*3/uL (1.2-4.9); Lymphocytes Percent Auto 23.4 % (20-40); Mean Corpuscular HGB Conc 31.4 g/dl (31.0-35.0); Mean Corpuscular Hemoglobin 31.6 pg (27.0-33.0); Mean Corpuscular Volume 100.7 fL (80.0-98.0); Mean Platelet Volume 9.5 fL (9.4-12.3); Monocytes Absolute Auto 0.6 X10*3/uL (0.1-1.2); Monocytes Percent Auto 5.8 % (2-11); Neutrophils Absolute Auto 6.8 x10*3/uL (2.0-8.3); Neutrophils Percent Auto 68.3 % (45-73); Platelet Count 267 X10*3/uL (160-400); Red Blood Count 4.52 X10*6/uL (4.20-5.50); Red Cell Distribution Width 13.9 % (11.0-16.0)
[2024-03-28 18:24] LABS: Alanine Aminotransferase 10 U/L (0-31); Albumin Level 4.1 g/dL (3.5-5.0); Alkaline Phosphatase 57 U/L (39-117); Anion Gap 10 (12-20); Aspartate Amino Transferase 9 U/L (5-31); Bilirubin Direct < 0.2 mg/dL (0.0-0.5); Bilirubin Total 0.2 mg/dL (0.0-1.0); Blood Urea Nitrogen 11 mg/dL (9-16); Calcium 10.3 mg/dL (8.4-10.2); Carbon Dioxide 31 mmol/L (22-29); Chloride 104 mmol/L (96-108); Creatinine Clr Calc Pharmacy 116.2; Estimated Glomerular Filt Rate > 60; Ethanol < 10 mg/dL; Glucose Random 114 mg/dL (60-115); Sodium 141 mmol/L (135-145); Total Protein 6.6 g/dL (6.5-8.0)
[2024-03-28 19:00] VITALS: BP 110/64; PULSE 89; RESP 18; TEMP 36.8; O2SAT 93
--- NOTE | 2024-03-28 19:11 | PC.NURSE ---
this rn assumed care of pt ,pt sitting up in stretcher, no acute distress noted. pt on 2L nasal cannula baseline. pt endorsing SI but not HI at this time. 1:1 sitter at bedside, pt awaiting care team.
[2024-03-28 19:24] LABS: Amphetamine Screen Urine Not Detected (Not Detect); Barbiturates, Urine Not Detected (Not Detect); Benzodiazepines Screen Urine Not Detected (Not Detect); Buprenorphine Scr Not Detected (Not Detect); Cannabinoid Screen Urine Not Detected (Not Detect); Cocaine Screen Urine Not Detected (Not Detect); Fentanyl, urine Not Detected (Not Detect); Methadone Screen, Urine Not Detected (Not Detect); Opiate Screen Urine Not Detected (Not Detect); Oxycodone Screen Urine Not Detected (Not Detect); Phencyclidine Screen Urine Not Detected (Not Detect)
--- NOTE | 2024-03-28 21:54 | PC.NURSE ---
care team at bedside assessing pt.
[2024-03-29] VITALS (8 sets, daily range): BP systolic 125–155; BP diastolic 68–87; PULSE 84–117; RESP 18–28; TEMP 36.4–36.7; O2SAT 86–93
--- NOTE | 2024-03-29 03:06 | PC.NURSE ---
pt noted to have bilateral expiratory wheezing at this time, aware, respiratory called to bedside for duoneb.
[2024-03-29] MEDS: Albuterol/Iprat 2.5/0.5MG 3 ML AMPUL.NEB INHALE (03:14)
--- NOTE | 2024-03-29 03:17 | PC.NURSE ---
respiratory at bedside to do duo neb for pt.
--- NOTE | 2024-03-29 03:30 | PC.NURSE ---
pt placed on CPAP for night time by RT.
[2024-03-29] MEDS: Albuterol Sulfate 7.5 MG, Albuterol Sulfate (0.083%) 2.5 MG 10 MG INHALE (05:00)
--- NOTE | 2024-03-29 17:11 | MHC.CARE ---
[facility] 3 day follow-up referral was faxed and activated at 17:05.
== END 2024-03-29 09:31 | disposition home or self-care (01) ==
PROVIDERS: Emergency Provider Emergency Medicine
DX: F31.9 Bipolar disorder, unspecified (principal); R45.851 Suicidal ideations; F60.3 Borderline personality disorder; F43.10 Post-traumatic stress disorder, unspecified; F41.9 Anxiety disorder, unspecified; R09.02 Hypoxemia; J44.9 Chronic obstructive pulmonary disease, unspecified; F17.210 Nicotine dependence, cigarettes, uncomplicated; Z86.711 Personal history of pulmonary embolism; Z91.51 Personal history of suicidal behavior; Z79.899 Other long term (current) drug therapy; Z79.01 Long term (current) use of anticoagulants
CPT/HCPCS: 36415; 80048; 80076; 80307; 81003; 85025; 94640; 99285; S9485

== ENCOUNTER 2024-04-03 12:16 | Emergency (ER) | payer MEDICAID, SELFPAY ==
--- NOTE | ~2024-04-03 | CT_ITS ---
EXAMINATION: CT HEAD WITHOUT CONTRAST CLINICAL INFORMATION: Head injury. Patient on anticoagulation. COMPARISON: Head CT dated 11/17/2023. TECHNIQUE: Contiguous axial imaging was performed from the skullbase to vertex without intravenous administration of contrast. This CT examination was performed using dose optimization techniques as appropriate, variously including the following: *Automated exposure control *Adjustment of mA and/or kV according to patient size (this includes techniques or standardized protocols for targeted exams where dose is matched to indication/reason for exam; i.e. extremities or head) *Use of iterative reconstruction technique DLP: 747 mGy-cm. FINDINGS: There is no evidence of acute intracranial hemorrhage or territorial infarction. No abnormal mass effect or midline shift is seen. Jarvis to white matter differentiation is well preserved. No extra-axial fluid collections are identified. The ventricles are normal in size. There is no abnormal attenuation within the brain parenchyma. The osseous structures and soft tissues are normal. The mastoid air cells and visualized portions of the paranasal sinuses are well aerated. CT/CT head/brain wo IV con IMPRESSION: No acute intracranial pathology.
--- NOTE | 2024-04-03 12:28 | ECG_ITS ---
Test Reason : weakness Blood Pressure : / mmHG Vent. Rate : 076 BPM Atrial Rate : 076 BPM P-R Int : 148 ms QRS Dur : 082 ms QT Int : 414 ms P-R-T Axes : 020 022 050 degrees QTc Int : 465 ms Normal sinus rhythm Normal ECG When compared with ECG of 17-MAR-2024 04:29, No significant change was found Referred By: Geovanni Barros Electronically Signed By:VAIBHAV KILLIAN MD
--- NOTE | 2024-04-03 12:43 | ED.GENADULT ---
HPI - General Adult General Chief complaint: Fall Stated complaint: FALL,HIT HEAD 2 HRS AGO,+THINN,-LOC,89% RA,94% 4L Time Seen by Provider: 04/03/24 12:27 History of Present Illness HPI narrative: The patient is a 54-year-old woman who lives alone at home. She is on home oxygen. She is on anticoagulation because of history of pulmonary emboli. She says that she use the bathroom today and when she got up cand collapsed? and hit her head on the floor. She does not think that she lost consciousness at all. She does not know why she collapsed. She does not think she tripped. She denies any chest pain or shortness of breath. She denies any abdominal pain, nausea, vomiting. She says that she thinks she hit the left side of her head although she does not feel any soft tissue swelling. She says she feels pain on that side of her head. No significant neck pain. No pain with moving her neck. No loss of function of her arms or legs. No numbness or tingling in her arms or legs. Related Data Home Medications ?Medication ?Instructions ?Recorded ?Confirmed lithium carbonate 450 mg 450 mg PO TID 05/14/23 03/17/24 tablet,extended release cyanocobalamin (vitamin B-12) 1,000 mcg PO DAILY 06/11/23 03/17/24 1,000 mcg tablet (Vitamin B-12) ipratropium 0.5 mg-albuterol 3 mg 3 ml inhalation RQ6H PRN Shortness 06/11/23 03/17/24 (2.5 mg base)/3 mL nebulization Of Breath Or Wheezing soln cetirizine 10 mg tablet 10 mg PO DAILY PRN Allergy Symptoms 12/19/23 03/17/24 melatonin 3 mg tablet 3 mg PO BEDTIME 12/19/23 03/17/24 valacyclovir 500 mg tablet 500 mg PO DAILY 12/19/23 03/17/24 omeprazole 20 mg capsule,delayed 20 mg PO DAILY@0630 12/29/23 03/17/24 release apixaban 5 mg tablet (Eliquis) 5 mg PO BID 02/20/24 03/17/24 cholecalciferol (vitamin D3) 25 25 mcg PO DAILY 02/20/24 03/17/24 mcg (1,000 unit) tablet (Vitamin D3) gabapentin 300 mg capsule 300 mg PO TID 02/20/24 03/17/24 gabapentin 300 mg capsule 300 mg PO DAILY PRN breakthrough 03/17/24 03/17/24 neuropathy Previous Rx's ?Medication ?Instructions ?Recorded albuterol sulfate 90 mcg/actuation 2 puff inhalation Q4H PRN 03/22/23 aerosol inhaler (Ventolin HFA) shortness of breath or wheezing #6.7 grams clonidine HCl 0.2 mg tablet 0.2 mg PO BEDTIME #30 tabs 03/22/23 ferrous sulfate 324 mg (65 mg 324 mg PO DAILY #30 tabs 03/22/23 iron) tablet,delayed release olanzapine 10 mg tablet 10 mg PO BEDTIME #30 tabs 03/22/23 ropinirole 1 mg tablet 1 mg PO BEDTIME #30 tabs 03/22/23 tiotropium bromide 18 mcg capsule 18 mcg inhalation RDAILY #20 03/22/23 with inhalation device (Spiriva inhalations with HandiHaler) nicotine 21 mg/24 hr daily 21 mg transdermal DAILY #28 ea 02/22/24 transdermal patch doxycycline monohydrate 100 mg 100 mg PO BID #7 caps 03/19/24 capsule prednisone 10 mg tablet 10 mg PO DAILY #5 tabs 03/19/24 Allergies Allergy/AdvReac Type Severity Reaction Status Date / Time aspirin Allergy Mild Anaphylaxis Verified 04/03/24 13:00 ampicillin Allergy Rash Verified 04/03/24 13:00 Penicillins Allergy Anaphylaxis Verified 04/03/24 13:00 latex AdvReac Rash Verified 04/03/24 13:00 Latex, Natural Rubber AdvReac Rash Verified 04/03/24 13:00 seafood AdvReac Anaphylaxis Verified 04/03/24 13:00 Sulfa (Sulfonamide AdvReac Hives Verified 04/03/24 13:00 Antibiotics) Review of Systems Review of Systems: Yes all other systems are reviewed and are negative PMFSH Past Medical History Medical History Morbid obesity Intentional overdose Acute bronchospasm Bipolar I disorder with depression Overdose on Tylenol Suicide attempt Asthma COPD (chronic obstructive pulmonary disease) Chronic lung disease Neoplasm of parotid gland Depression 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 Drug abuse Bipolar I disorder Post traumatic stress disorder (PTSD) Tobacco use disorder FABIOLA (obstructive sleep apnea) Borderline personality disorder Intermittent explosive disorder Asthma exacerbation in COPD Herpes Tobacco use Bipolar disorder COPD (chronic obstructive pulmonary disease) Surgical History History of ankle surgery History of back surgery Hx of cholecystectomy History of appendectomy Family History Family History Mother COPD (chronic obstructive pulmonary disease) Social History Social History Household Members: Caregiver Household Members Other:: So Housing: Apartment Housing Other:: Sleeps on the couch at [facility] house Do you presently have visiting nurse or other home services: No Unable to assess alcohol history related to: Unknown Alcohol intake: former Comment: 1:1sitter Patient Tobacco Use Status: Current everyday Tobacco user Tobacco use type: Cigarette and Smokeless Tobacco Cigarette Packs Per Day: 1 Cigarettes Per Day: 3 Years Smoked: 20 Smoked in Last 30 Days: Yes e-Cigarette/Vaping Use: Never Used Second Hand Smoke Exposure: No Use of substances other than those prescribed or required for medical reasons: No Substance Use Type: Crack/Cocaine Advance Directives: Yes Advance Directives on File: Yes Advance Directives Date on File: 06/17/22 Do you have a plan to hurt others: No Plan Patient : No service: No Current occupational status: unemployed and disabled Sexual orientation: Straight/Heterosexual Physical Exam ED Vital Signs: Vital Signs - 24 hr 04/03/24 12:57 04/03/24 14:19 04/03/24 14:38 Temperature 98.6 F 98.6 F Pulse Rate 79 81 81 Respiratory Rate 18 20 20 Blood Pressure 115/85 121/67 121/67 Pulse Oximetry 96 95 95 Oxygen Delivery Method Nasal Cannula Nasal Cannula Nasal Cannula Oxygen Flow Rate 3 3 BMI result Body Mass Index 45.7 Const Other: The patient is awake, alert, pleasant, cooperative. The patient does not appear in obvious distress HENMT Other: The patient has some tenderness of the left occipital scalp. No apparent soft tissue swelling. No raccoon eyes. No thomas sign. Eyes Other: Pupils are round equal, conjunctivae are clear, extraocular movements intact, no eyelid swelling. Neck Other: No posterior midline C-spine tenderness. No pain with range of motion of the neck. C-spine is clinically clear. Resp Effort & Inspection: normal respiratory effort Auscultation: clear to auscultation bilaterally Cardio Rate: regular rate Rhythm: regular rhythm Heart sounds: S1 normal heart sound present and S2 normal heart sound present GI Other: Abdomen is soft and nontender Skin Other: Skin is intact. Neuro Other: The patient is awake and alert. GCS is 15. Mental status is normal. Cranial nerves are grossly intact. She moves all 4 extremities normally and seems grossly neurologically intact Extrem Other: No signs of trauma to the extremities Medical Decision Making Medical Decision Making MDM Narrative: The patient is a 54-year-old female who describes a fall at home in which she hit her head. She is on anticoagulation. She says that she felt very shaky after the injury and that the shakiness persisted for 2 hours after the injury and so she called an ambulance and was brought to the hospital. On my exam she does not have any obvious neurological deficits. She has left parietal scalp tenderness but no apparent scalp hematoma. She is on apixaban. She does not really describe fainting. There was no loss of consciousness either before hitting the ground or as a result of hitting the ground. Her head CT shows no acute intracranial hemorrhage. EKG and Labs are unremarkable. I think she may be discharged. Lab Data 04/03/24 13:42 04/03/24 13:42 Labs: Lab Results 04/03/24 04/03/24 Range/Units 13:42 14:01 WBC 9.1 (4.8-10.8) X10*3/uL RBC 4.48 (4.20-5.50) X10*6/uL Hgb 14.3 (12.0-16.0) g/dl Hct 44.8 (37.0-47.0) % MCV 100.0 H (80.0-98.0) fL MCH 31.9 (27.0-33.0) pg MCHC 31.9 (31.0-35.0) g/dl RDW 13.4 (11.0-16.0) % Plt Count 241 (160-400) X10*3/uL MPV 9.7 (9.4-12.3) fL Immature Gran % (Auto) 0.3 (0.0-0.4) % Neut % (Auto) 67.3 (45-73) % Lymph % (Auto) 25.9 (20-40) % [place]in[place] % (Auto) 4.4 (2-11) % Eos % (Auto) 1.2 (0-4) % Baso % (Auto) 0.9 (0-2) % Lymph # (Auto) 2.4 (1.2-4.9) X10*3/uL [place]in[place] # (Auto) 0.4 (0.1-1.2) X10*3/uL Eos # (Auto) 0.1 (0.0-0.4) X10*3/uL Baso # (Auto) 0.1 (0.0-0.2) X10*3/uL Abs Immat Gran (auto) 0.03 (0.00-0.03) X10*3/uL Absolute Neuts (auto) 6.1 (2.0-8.3) x10*3/uL Absolute Nucleated RBC 0.000 (0.0-0.012) X10*3/uL Nucleated RBC % (auto) 0.0 (0.0-0.2) /100WBC Sodium 142 (135-145) mmol/L Potassium 4.1 (3.3-5.1) mmol/L Chloride 103 (96-108) mmol/L Carbon Dioxide 32 H (22-29) mmol/L Anion Gap 11 L (12-20) BUN 10 (9-16) mg/dL Creatinine 0.70 (0.5-1.4) mg/dL Estim Creat Clear Calc 127.6 Estimated GFR > 60 Random Glucose 102 (60-115) mg/dL Calcium 10.1 (8.4-10.2) mg/dL Urine Color Yellow Urine Appearance Clear Urine pH 7.5 (5.0-9.0) Ur Specific Levan 1.015 (1.005-1.025) Urine Protein Negative (Neg-Trace) mg/dL Urine Glucose (UA) Negative (Negative) mg/dL Urine Ketones Negative (Negative) mg/dL Urine Blood Negative (Negative) Urine Nitrite Negative (Negative) Ur Leukocyte Esterase Negative (Negative) Urine Opiates Screen Not Detected (Not Detect) Ur Buprenorphine Scrn Not Detected (Not Detect) ng/mL Ur Oxycodone Screen Not Detected (Not Detect) ng/mL Urine Methadone Screen Not Detected (Not Detect) ng/mL Urine Fentanyl Screen Not Detected (Not Detect) Ur Barbiturates Screen Not Detected (Not Detect) Ur Phencyclidine Scrn Not Detected (Not Detect) Ur Amphetamines Screen Not Detected (Not Detect) U Benzodiazepines Scrn Not Detected (Not Detect) [place] 1.09 (0.60-1.20) mmol/L Urine Cocaine Screen Not Detected (Not Detect) U Marijuana (THC) Screen Not Detected (Not Detect) Independent Interpretation I performed an independent interpretation of an: EKG Interpretation: EKG at 12:32 shows normal sinus rhythm at 76 beats per minute.. No acute ischemic changes. Discharge Plan Discharge Clinical Impression: Head injury, Chronic anticoagulation, Fall Patient Disposition: Home, Self-Care Additional Instructions: Your testing today is reassuring. There is no sign of any dangerous head injury or other obvious acute problem. Please plan on continuing your regular medications. Please follow up soon with your regular doctor. Return to the emergency room if worse. Prescriptions: No Action ropinirole 1 mg Tablet 1 mg PO BEDTIME Qty: 30 0RF olanzapine 10 mg Tablet 10 mg PO BEDTIME Qty: 30 0RF clonidine HCl 0.2 mg Tablet 0.2 mg PO BEDTIME Qty: 30 0RF Protocol: Hold for SBP< HOLD for SBP < : 90 albuterol sulfate [Ventolin HFA] 90 mcg/actuation Hfa Aerosol Inhaler 2 puff inhalation Q4H PRN (Reason: shortness of breath or wheezing) Qty: 6.7 0RF tiotropium bromide [Spiriva with HandiHaler] 18 mcg Capsule, W/Inhalation Device 18 mcg inhalation RDAILY Qty: 20 0RF ferrous sulfate 324 mg (65 mg iron) Tablet,Delayed Release (Dr/Ec) 324 mg PO DAILY Qty: 30 0RF cetirizine 10 mg Tablet 10 mg PO DAILY PRN (Reason: Allergy Symptoms) melatonin 3 mg Tablet 3 mg PO BEDTIME valacyclovir 500 mg Tablet 500 mg PO DAILY omeprazole 20 mg Capsule,Delayed Release(Dr/Ec) 20 mg PO DAILY@0630 gabapentin 300 mg capsule 300 mg PO TID cholecalciferol (vitamin D3) [Vitamin D3] 25 mcg (1,000 unit) tablet 25 mcg PO DAILY Eliquis 5 mg Tablet 5 mg PO BID nicotine 21 mg/24 hr Patch 24 Hour 21 mg transdermal DAILY Qty: 28 0RF gabapentin 300 mg capsule 300 mg PO DAILY PRN (Reason: breakthrough neuropathy) doxycycline monohydrate 100 mg capsule 100 mg PO BID Qty: 7 0RF prednisone 10 mg tablet 10 mg PO DAILY Qty: 5 0RF lithium carbonate 450 mg tablet extended release 450 mg PO TID cyanocobalamin (vitamin B-12) [Vitamin B-12] 1,000 mcg tablet 1,000 mcg PO DAILY ipratropium-albuterol 0.5 mg-3 mg(2.5 mg base)/3 mL solution for nebulization 3 ml inhalation RQ6H PRN (Reason: Shortness Of Breath Or Wheezing) Referrals: Mike Malone MD [Primary Care Provider] - (Fall, head injury) Interventions: ED Discharge Assessment Last Done: 04/03/24 14:38 Discharge Date/Time: 04/03/24 14:42 Print Language: Kazakh
[2024-04-03 12:57] VITALS: BP 115/85; BP 158/100; PULSE 79; PULSE 80; RESP 18; TEMP 37; O2SAT 86; O2SAT 96; BMI 45.7
[2024-04-03 13:46] LABS: MANUAL DIFF FLAG NO
[2024-04-03 13:48] LABS: Basophils Absolute Auto 0.1 X10*3/uL (0.0-0.2); Basophils Percent Auto 0.9 % (0-2); Eosinophils Absolute Auto 0.1 X10*3/uL (0.0-0.4); Eosinophils Percent Auto 1.2 % (0-4); Hematocrit 44.8 % (37.0-47.0); Hemoglobin 14.3 g/dl (12.0-16.0); Imm Gran Abs Auto 0.03 X10*3/uL (0.00-0.03); Imm Gran Pct Auto 0.3 % (0.0-0.4); Lymphocytes Absolute Auto 2.4 X10*3/uL (1.2-4.9); Lymphocytes Percent Auto 25.9 % (20-40); Mean Corpuscular HGB Conc 31.9 g/dl (31.0-35.0); Mean Corpuscular Hemoglobin 31.9 pg (27.0-33.0); Mean Platelet Volume 9.7 fL (9.4-12.3); Monocytes Absolute Auto 0.4 X10*3/uL (0.1-1.2); Monocytes Percent Auto 4.4 % (2-11); Neutrophils Absolute Auto 6.1 x10*3/uL (2.0-8.3); Neutrophils Percent Auto 67.3 % (45-73); Platelet Count 241 X10*3/uL (160-400); Red Blood Count 4.48 X10*6/uL (4.20-5.50); Red Cell Distribution Width 13.4 % (11.0-16.0); White Blood Count 9.1 X10*3/uL (4.8-10.8)
[2024-04-03 14:00] LABS: Lithium 1.09 mmol/L (0.60-1.20)
[2024-04-03 14:06] LABS: Anion Gap 11 (12-20); Blood Urea Nitrogen 10 mg/dL (9-16); Calcium 10.1 mg/dL (8.4-10.2); Carbon Dioxide 32 mmol/L (22-29); Chloride 103 mmol/L (96-108); Creatinine Clr Calc Pharmacy 127.6; Estimated Glomerular Filt Rate > 60; Glucose Random 102 mg/dL (60-115); Potassium 4.1 mmol/L (3.3-5.1); Sodium 142 mmol/L (135-145)
[2024-04-03 14:14] LABS: Appearance Urine Clear; Color Urine Yellow; Glucose Urine UA Negative (Negative); Leukocyte Esterase Urine Negative (Negative); Nitrite Urine Negative (Negative); PH 7.5 (5.0-9.0); Specific Gravity - Urine 1.015 (1.005-1.025); Urine Blood Negative (Negative); Urine Ketones Negative (Negative); Urine Protein Negative (Neg-Trace)
[2024-04-03 14:19] VITALS: BP 121/67; PULSE 81; RESP 20; O2SAT 95
[2024-04-03 14:38] VITALS: BP 121/67; PULSE 81; RESP 20; TEMP 37; O2SAT 95
[2024-04-03 15:08] LABS: Amphetamine Screen Urine Not Detected (Not Detect); Barbiturates, Urine Not Detected (Not Detect); Benzodiazepines Screen Urine Not Detected (Not Detect); Buprenorphine Scr Not Detected (Not Detect); Cannabinoid Screen Urine Not Detected (Not Detect); Cocaine Screen Urine Not Detected (Not Detect); Fentanyl, urine Not Detected (Not Detect); Methadone Screen, Urine Not Detected (Not Detect); Opiate Screen Urine Not Detected (Not Detect); Oxycodone Screen Urine Not Detected (Not Detect); Phencyclidine Screen Urine Not Detected (Not Detect)
== END 2024-04-03 14:42 | disposition home or self-care (01) ==
PROVIDERS: Emergency Provider Emergency Medicine; PCP Internal Medicine
DX: S09.90XA Unspecified injury of head, initial encounter (principal); J44.9 Chronic obstructive pulmonary disease, unspecified; Z86.711 Personal history of pulmonary embolism; Z79.01 Long term (current) use of anticoagulants; Z99.81 Dependence on supplemental oxygen; W18.30XA Fall on same level, unspecified, initial encounter; Y93.9 Activity, unspecified; Y92.002 Bathroom of unspecified non-institutional (private) residence as the place of occurrence of the external cause; Y99.9 Unspecified external cause status
CPT/HCPCS: 36415; 70450; 80048; 80178; 80307; 81003; 85025; 93005; 99284

== ENCOUNTER → 2024-04-03 12:28 | Outpatient (BNV) | payer MEDICAID, SELFPAY | PROVIDERS: Emergency Provider Emergency Medicine; PCP Internal Medicine; Visit Provider Internal Medicine Cardiovascular Disease | DX: R53.1 Weakness (principal) | CPT/HCPCS: 93010 ==

== ENCOUNTER 2024-04-14 11:38 | Emergency (ER) | payer MEDICAID, SELFPAY ==
--- NOTE | ~2024-04-14 | XR_ITS ---
EXAMINATION: XR CHEST CLINICAL INFORMATION: Shortness of breath, wheezing. COMPARISON: Chest radiograph 03/17/2024. TECHNIQUE: Frontal view of the chest was obtained. FINDINGS: Stable prominence of the cardiomediastinal silhouette. Similar degree of increased interstitial markings with minimal increased lower lung haziness. No dense consolidation. No pleural effusion or pneumothorax. No acute osseous findings. XR/XR chest 1V IMPRESSION: Mildly increased interstitial markings and lower lobe haziness which could be seen in the setting of an infectious/inflammatory process of the small airways. No dense consolidation.
[2024-04-14 11:41] VITALS: BP 115/86; PULSE 70; O2SAT 98
[2024-04-14 11:43] VITALS: BMI 39.9
[2024-04-14 11:55] VITALS: BP 120/70; PULSE 80; RESP 16; TEMP 36.6; O2SAT 94
[2024-04-14 12:11] VITALS: PULSE 76; RESP 25; O2SAT 95
[2024-04-14] MEDS: Albuterol Sulfate 5 MG, Albuterol/Iprat 2.5/0.5MG 3 ML 3 ML INHALE (12:11)
--- NOTE | 2024-04-14 12:37 | ECG_ITS ---
Test Reason : SOB Blood Pressure : / mmHG Vent. Rate : 082 BPM Atrial Rate : 082 BPM P-R Int : 144 ms QRS Dur : 080 ms QT Int : 402 ms P-R-T Axes : 024 022 047 degrees QTc Int : 469 ms Normal sinus rhythm Nonspecific T wave abnormality Abnormal ECG When compared with ECG of 03-APR-2024 12:32, Nonspecific T wave abnormality now evident in Lateral leads Referred By: Monisha Ricketts Electronically Signed By:ALEJANDRO MCCLELLAN
--- NOTE | 2024-04-14 12:51 | ED_ITS ---
HPI - SOB/Dyspnea General Chief Complaint: Dyspnea Stated Complaint: SOB X2 HRS,NO RELEIF FROM INHALER PER EMS Time Seen by Provider: 04/14/24 12:30 Source: patient, EMS, RN notes reviewed and old records reviewed Mode of arrival: EMS Limitations: no limitations History of Present Illness ED Provider: Nathan Ricketts PA-C HPI Narrative: 54 yo female with history of asthma/COPD on chronic 3 L nasal cannula, 40+ pack year smoking history, active smoking, FABIOLA on CPAP, bipolar disorder, depression, PTSD, borderline personality disorder, drug use who presents to the ER from home via EMS for evaluation of shortness of breath that has been worsening for the last 2 or 3 days. Patient reports she has had increase in cough with white/yellow phlegm. She states she has been more short of breath with exertion and when lying flat. She has been using her inhalers and nebulizer at home with minimal relief. This morning her breathing got much worse so she called 911. She admits to continuing to smoke although she is trying to cut back. When she goes to smoke, there is a woman who will smoke 5-6 cigarettes in the same area that she does when she smokes 1. Patient endorses chest discomfort and chest pain, mostly when she coughs. It has in the center of her chest and does not radiate. It is aching in nature. She has no associated nausea, diaphoresis, abdominal pain. No fever or chills at home. No known sick contacts. She has not been on steroids for her lungs in the last 1 month. She reports increased lower extremity swelling as well. She is now sleeping 6 pillows at night instead of 2. She has no history of heart failure that she knows of. MD elicited complaint: shortness of breath and cough Pertinent past history: COPD and asthma Onset (ago): day(s) (3) Context: recent illness Timing: progressively worsening Severity: moderate Exacerbating factors: lying flat, exertion and coughing Relieving factors: nothing Known history of: COPD and asthma Associated symptoms: chest pain, cough, wheezing, sputum production and chest congestion Treatment prior to arrival: oxygen and bronchodilator Related Data Home oxygen amount: 3 liters Home Medications ?Medication ?Instructions ?Recorded ?Confirmed lithium carbonate 450 mg 450 mg PO TID 05/14/23 03/17/24 tablet,extended release cyanocobalamin (vitamin B-12) 1,000 mcg PO DAILY 06/11/23 03/17/24 1,000 mcg tablet (Vitamin B-12) ipratropium 0.5 mg-albuterol 3 mg 3 ml inhalation RQ6H PRN Shortness 06/11/23 03/17/24 (2.5 mg base)/3 mL nebulization Of Breath Or Wheezing soln cetirizine 10 mg tablet 10 mg PO DAILY PRN Allergy Symptoms 12/19/23 03/17/24 melatonin 3 mg tablet 3 mg PO BEDTIME 12/19/23 03/17/24 valacyclovir 500 mg tablet 500 mg PO DAILY 12/19/23 03/17/24 omeprazole 20 mg capsule,delayed 20 mg PO DAILY@0630 12/29/23 03/17/24 release apixaban 5 mg tablet (Eliquis) 5 mg PO BID 02/20/24 03/17/24 cholecalciferol (vitamin D3) 25 25 mcg PO DAILY 02/20/24 03/17/24 mcg (1,000 unit) tablet (Vitamin D3) gabapentin 300 mg capsule 300 mg PO TID 02/20/24 03/17/24 gabapentin 300 mg capsule 300 mg PO DAILY PRN breakthrough 03/17/24 03/17/24 neuropathy Previous Rx's ?Medication ?Instructions ?Recorded albuterol sulfate 90 mcg/actuation 2 puff inhalation Q4H PRN 03/22/23 aerosol inhaler (Ventolin HFA) shortness of breath or wheezing #6.7 grams clonidine HCl 0.2 mg tablet 0.2 mg PO BEDTIME #30 tabs 03/22/23 ferrous sulfate 324 mg (65 mg 324 mg PO DAILY #30 tabs 03/22/23 iron) tablet,delayed release olanzapine 10 mg tablet 10 mg PO BEDTIME #30 tabs 03/22/23 ropinirole 1 mg tablet 1 mg PO BEDTIME #30 tabs 03/22/23 tiotropium bromide 18 mcg capsule 18 mcg inhalation RDAILY #20 03/22/23 with inhalation device (Spiriva inhalations with HandiHaler) nicotine 21 mg/24 hr daily 21 mg transdermal DAILY #28 ea 02/22/24 transdermal patch doxycycline monohydrate 100 mg 100 mg PO BID #7 caps 03/19/24 capsule prednisone 10 mg tablet 10 mg PO DAILY #5 tabs 03/19/24 doxycycline hyclate 100 mg tablet 100 mg PO BID 7 days #14 tabs 04/14/24 guaifenesin 1,200 mg tablet, 1,200 mg PO BID #14 tabs 04/14/24 extended release 12 hr (Mucinex) ipratropium 0.5 mg-albuterol 3 mg 3 ml inhalation Q4H PRN shortness 04/14/24 (2.5 mg base)/3 mL nebulization of breath or wheezing #90 mL soln prednisone 10 mg tablets in a dose See Taper PO DAILY #48 ea 04/14/24 pack Allergies Allergy/AdvReac Type Severity Reaction Status Date / Time aspirin Allergy Mild Anaphylaxis Verified 04/14/24 11:43 ampicillin Allergy Rash Verified 04/14/24 11:43 Penicillins Allergy Anaphylaxis Verified 04/14/24 11:43 latex AdvReac Rash Verified 04/14/24 11:43 Latex, Natural Rubber AdvReac Rash Verified 04/14/24 11:43 seafood AdvReac Anaphylaxis Verified 04/14/24 11:43 Sulfa (Sulfonamide AdvReac Hives Verified 04/14/24 11:43 Antibiotics) Review of Systems 2 Review of Systems: Yes all other systems are reviewed and are negative PMFSH Past Medical History Medical History Morbid obesity Intentional overdose Acute bronchospasm Bipolar I disorder with depression Overdose on Tylenol Suicide attempt Asthma COPD (chronic obstructive pulmonary disease) Chronic lung disease Neoplasm of parotid gland Depression 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 Drug abuse Bipolar I disorder Post traumatic stress disorder (PTSD) Tobacco use disorder FABIOLA (obstructive sleep apnea) Borderline personality disorder Intermittent explosive disorder Asthma exacerbation in COPD Herpes Tobacco use Bipolar disorder COPD (chronic obstructive pulmonary disease) Surgical History History of ankle surgery History of back surgery Hx of cholecystectomy History of appendectomy Family History Family History Mother COPD (chronic obstructive pulmonary disease) Social History Social History Household Members: Caregiver Household Members Other:: So Housing: Apartment Housing Other:: Sleeps on the couch at [facility] house Do you presently have visiting nurse or other home services: No Unable to assess alcohol history related to: Unknown Alcohol intake: former Comment: 1:1sitter Patient Tobacco Use Status: Current everyday Tobacco user Tobacco use type: Cigarette and Smokeless Tobacco Cigarette Packs Per Day: 1 Cigarettes Per Day: 3 Years Smoked: 20 Smoked in Last 30 Days: Yes e-Cigarette/Vaping Use: Never Used Second Hand Smoke Exposure: No Substance Use Type: Crack/Cocaine Advance Directives: Yes Advance Directives on File: Yes Advance Directives Date on File: 06/17/22 Do you have a plan to hurt others: No Plan Patient : No service: No Current occupational status: unemployed and disabled Sexual orientation: Straight/Heterosexual Physical Exam 2 Vital Signs: Vital Signs: Last Vital Signs Temp 98.4 F 04/14/24 16:13 Pulse 79 04/14/24 16:13 Resp 20 04/14/24 16:13 BP 130/77 04/14/24 16:13 Pulse Ox 94 04/14/24 16:13 O2 Del Method Nasal Cannula 04/14/24 16:13 O2 Flow Rate 3 04/14/24 16:13 BMI result Body Mass Index 39.9 Appearance: Alert. Oriented X3. Mild respiratory distress, audible wheezing, smells of cigarette smoke Head: normocephalic, atraumatic. Eyes: Pupils equal, round and reactive to light. ENT: Pharynx normal. No tonsillar swelling or exudate. Neck: Normal inspection. Neck supple. Unable to appreciate any JVD CVS: Normal heart rate and rhythm. Pulses normal. Respiratory: Mild respiratory distress. Breath sounds coarse throughout with scattered rhonchi and expiratory wheezes throughout. Congested cough Abdomen: Obese, Soft and nontender. +BS x4 Skin: Skin warm and dry. Normal skin color. Normal skin turgor. No rashes. Extremities: 1+lower extremity edema of the lower legs and ankles with hyperpigmentation of the skin of the anterior lower legs. No joint swelling. Neuro/psych: Oriented X 3. No motor deficit. No sensory deficit. CN II-XII intact. Normal speech and cognition. Course Reevaluation(s) Reevaluation #1: Upon re-evaluation patient has aeration and breath sounds are improved. She is feeling better. Medications Administered Discontinued Medications Generic Name Dose Route Start Last Admin Trade Name Freq PRN Reason Stop Dose Admin Albuterol Sulfate 5 mg/ 0 mg 04/14/24 12:03 04/14/24 12:11 Albuterol/Ipratropium 3 ml INHALE 04/14/24 12:04 1 each ONCE ONE Administration Methylprednisolone Sodium Succinate 60 mg 04/14/24 12:37 04/14/24 13:18 Methylprednisolone Sod Succ 125 Mg/2 Ml Vial IVPUSH 04/14/24 12:38 60 mg ONCE ONE Administration Potassium Chloride 40 meq 04/14/24 15:18 04/14/24 15:55 Potassium Chloride Packet 20 Meq Packet PO 04/14/24 15:19 Not Given ONCE ONE Medical Decision Making Medical Decision Making MDM Narrative: 54-year-old female with a history of COPD/asthma on chronic oxygen, FABIOLA, active smoker who presents to the ER for evaluation of shortness of breath and wheezing for the last 3 days along with worsening productive cough, orthopnea, dyspnea on exertion. She continues to smoke and is near people who smoke frequently. Patient is oxygenating well on her baseline O2 although she is very wheezy with a congested cough. E.d. bronch protocol was started and she was given 5 mg DuoNeb along with IV steroids. She also received a DuoNeb EN route by EMS. Chest x-ray ordered it does not show any evidence of pneumonia. Her BNP is normal. Troponin is not elevated. She has no leukocytosis. Her viral studies are negative. Upon re-evaluation after steroids and nebulizer, patient was sleeping, breathing much more comfortably. Upon arousal she reports feeling much better. At this time she is stable for discharge home with oral antibiotics and steroid taper for COPD exacerbation. We discussed at length the importance of trying to quit smoking and avoid secondhand smoke as this is causing her to have COPD exacerbations. She expressed understanding. Return precautions were discussed. Stable for discharge home Differential Diagnosis Differential Diagnoses: The differential diagnosis associated with the presentation includes Acute COPD exacerbation, acute CHF exacerbation, asthma exacerbation, pneumonia, pneumonitis, PE less likely Admission/Observation Consideration of admission/observation: Escalation of care including admission/observation considered Lab Data [facility] Lab Attestation statement: I reviewed the patient's lab results. No leukocytosis, chronically ill intubated bicarbonate consistent with chronic respiratory failure, negative troponin not indicative of cardiac ischemia 04/14/24 13:08 04/14/24 13:08 Labs: Lab Results 04/14/24 04/14/24 04/14/24 Range/Units 12:50 13:08 13:09 WBC 7.4 (4.8-10.8) X10*3/uL RBC 4.64 (4.20-5.50) X10*6/uL Hgb 14.5 (12.0-16.0) g/dl Hct 46.0 (37.0-47.0) % MCV 99.1 H (80.0-98.0) fL MCH 31.3 (27.0-33.0) pg MCHC 31.5 (31.0-35.0) g/dl RDW 13.5 (11.0-16.0) % Plt Count 239 (160-400) X10*3/uL MPV 9.7 (9.4-12.3) fL Immature Gran % (Auto) 0.1 (0.0-0.4) % Neut % (Auto) 59.6 (45-73) % Lymph % (Auto) 31.1 (20-40) % [place] % (Auto) 6.4 (2-11) % Eos % (Auto) 2.0 (0-4) % Baso % (Auto) 0.8 (0-2) % Lymph # (Auto) 2.3 (1.2-4.9) X10*3/uL [place] # (Auto) 0.5 (0.1-1.2) X10*3/uL Eos # (Auto) 0.2 (0.0-0.4) X10*3/uL Baso # (Auto) 0.1 (0.0-0.2) X10*3/uL Abs Immat Gran (auto) 0.01 (0.00-0.03) X10*3/uL Absolute Neuts (auto) 4.4 (2.0-8.3) x10*3/uL Absolute Nucleated RBC 0.000 (0.0-0.012) X10*3/uL Nucleated RBC % (auto) 0.0 (0.0-0.2) /100WBC Hold Blue Top SEE NOTE Sodium 142 (135-145) mmol/L Potassium 4.0 (3.3-5.1) mmol/L Chloride 101 (96-108) mmol/L Carbon Dioxide 34 H (22-29) mmol/L Anion Gap 11 L (12-20) BUN 7 L (9-16) mg/dL Creatinine 0.71 (0.5-1.4) mg/dL Estim Creat Clear Calc 112.5 Estimated GFR > 60 Random Glucose 113 (60-115) mg/dL Calcium 10.2 (8.4-10.2) mg/dL Magnesium 2.1 (1.6-2.6) mg/dL Total Bilirubin 0.3 (0.0-1.0) mg/dL Direct Bilirubin 0.1 (0.0-0.5) mg/dL AST 15 (5-31) U/L ALT 10 (0-31) U/L Alkaline Phosphatase 73 (39-117) U/L Troponin I High Sens 2.8 (<3.5-17.0) ng/L B-Natriuretic Peptide 51 (<100) pg/mL Total Protein 7.3 (6.5-8.0) g/dL Albumin 4.4 (3.5-5.0) g/dL Urine Color Yellow Urine Appearance Clear Urine pH 7.5 (5.0-9.0) Ur Specific [place] <= 1.005 (1.005-1.025) Urine Protein Negative (Neg-Trace) mg/dL Urine Glucose (UA) Negative (Negative) mg/dL Urine Ketones Negative (Negative) mg/dL Urine Blood Negative (Negative) Urine Nitrite Negative (Negative) Ur Leukocyte Esterase Negative (Negative) Influenza Type A (PCR) NEGATIVE (Negative) Influenza Type B (PCR) NEGATIVE (Negative) RSV RNA Qual (PCR) NEGATIVE (Negative) SARS-CoV-2 RNA (RT-PCR) NEGATIVE (Negative) Independent Interpretation I performed an independent interpretation of an: EKG and Plain X-Ray Interpretation: Chest x-ray consistent with bibasilar haziness, no overt evidence of CHF or effusions, no focal pneumonia Chest x-ray with normal sinus rhythm, ventricular rate 82 beats per minute, normal QTC, normal NE interval, no ST segment elevations or depressions Radiology Impression Discussion of test interpretation with radiology: I have reviewed the radiologist's reading. Radiologist Impression: EXAMINATION: XR CHEST CLINICAL INFORMATION: Shortness of breath, wheezing. COMPARISON: Chest radiograph 03/17/2024. TECHNIQUE: Frontal view of the chest was obtained. FINDINGS: Stable prominence of the cardiomediastinal silhouette. Similar degree of increased interstitial markings with minimal increased lower lung haziness. No dense consolidation. No pleural effusion or pneumothorax. No acute osseous findings. XR/XR chest 1V IMPRESSION: Mildly increased interstitial markings and lower lobe haziness which could be seen in the setting of an infectious/inflammatory process of the small airways. No dense consolidation. Independent Historian Clinical information obtained from an independent historian. History obtained from or confirmed by: EMS External Record Review External record reviewed: Inpatient record, Office record, Outpatient record and Prior outpatient labs Prescription Management I considered prescription management with: Antibiotic Chronic Conditions Patient?s care impacted by: Other (PTSD, active smoker) Social Determinants Patient?s care significantly limited by Social Determinants of Health including: Alcoholism and drug addiction in family, Problems related to primary support group and Other Social Determinant of Health Procedures Smoking Cessation Time Spent Discussing Smoking Cessation w/Patient (min): 5 Patient Acknowledges Need for Cessation: Yes Additional Comments: Discussed the patch and gum, as well as medication assisted options, patient is going to try the gum, declining need for prescription today Discharge Plan Discharge Clinical Impression: Acute exacerbation of chronic obstructive airways disease Patient Disposition: Home, Self-Care Instructions: COPD (Chronic Obstructive Pulmonary Disease) (DC) Additional Instructions: Your chest x-ray did not show any evidence of pneumonia. You tested negative for COVID, flu, RSV. Your lab workup was reassuring. Take the prescribed medications as directed for COPD exacerbation. Make sure you complete the entire course of antibiotics and prednisone taper. Recommend using nebulizer every 4 hours around the clock until your respiratory status improves. Do your best to quit smoking and stay away from that lady that smokes all the cigarettes. If you develop new or worsening symptoms call 911 or come back to the ER for further evaluation. Prescriptions: New prednisone 10 mg tablets,dose pack See Taper PO DAILY Qty: 48 0RF Taper: Prednisone 40 mg daily for 3 Days and 0 Hour 30 mg daily for 3 Days and 0 Hour 20 mg daily for 3 Days and 0 Hour 10 mg daily for 3 Days and 0 Hour Rx Instructions: 40 mg Daily x3 days, 30 mg daily x3 days, 20 mg daily x3 days, 10 mg daily x3 days doxycycline hyclate 100 mg tablet 100 mg PO BID 7 Days Qty: 14 0RF guaifenesin [Mucinex] 1,200 mg tablet extended release 12hr 1,200 mg PO BID Qty: 14 0RF ipratropium-albuterol 0.5 mg-3 mg(2.5 mg base)/3 mL solution for nebulization 3 ml inhalation Q4H PRN (Reason: shortness of breath or wheezing) Qty: 90 0RF No Action ropinirole 1 mg Tablet 1 mg PO BEDTIME Qty: 30 0RF olanzapine 10 mg Tablet 10 mg PO BEDTIME Qty: 30 0RF clonidine HCl 0.2 mg Tablet 0.2 mg PO BEDTIME Qty: 30 0RF Protocol: Hold for SBP< HOLD for SBP < : 90 albuterol sulfate [Ventolin HFA] 90 mcg/actuation Hfa Aerosol Inhaler 2 puff inhalation Q4H PRN (Reason: shortness of breath or wheezing) Qty: 6.7 0RF tiotropium bromide [Spiriva with HandiHaler] 18 mcg Capsule, W/Inhalation Device 18 mcg inhalation RDAILY Qty: 20 0RF ferrous sulfate 324 mg (65 mg iron) Tablet,Delayed Release (Dr/Ec) 324 mg PO DAILY Qty: 30 0RF cetirizine 10 mg Tablet 10 mg PO DAILY PRN (Reason: Allergy Symptoms) melatonin 3 mg Tablet 3 mg PO BEDTIME valacyclovir 500 mg Tablet 500 mg PO DAILY omeprazole 20 mg Capsule,Delayed Release(Dr/Ec) 20 mg PO DAILY@0630 gabapentin 300 mg capsule 300 mg PO TID cholecalciferol (vitamin D3) [Vitamin D3] 25 mcg (1,000 unit) tablet 25 mcg PO DAILY Eliquis 5 mg Tablet 5 mg PO BID nicotine 21 mg/24 hr Patch 24 Hour 21 mg transdermal DAILY Qty: 28 0RF gabapentin 300 mg capsule 300 mg PO DAILY PRN (Reason: breakthrough neuropathy) doxycycline monohydrate 100 mg capsule 100 mg PO BID Qty: 7 0RF prednisone 10 mg tablet 10 mg PO DAILY Qty: 5 0RF lithium carbonate 450 mg tablet extended release 450 mg PO TID cyanocobalamin (vitamin B-12) [Vitamin B-12] 1,000 mcg tablet 1,000 mcg PO DAILY ipratropium-albuterol 0.5 mg-3 mg(2.5 mg base)/3 mL solution for nebulization 3 ml inhalation RQ6H PRN (Reason: Shortness Of Breath Or Wheezing) Referrals: [facility] – [place] Pulmonology Services [Provider Group] Mike Malone MD [Primary Care Provider] - Interventions: ED Discharge Assessment Last Done: 04/14/24 16:13 Discharge Date/Time: 04/14/24 16:14 Print Language: Indonesian
[2024-04-14 13:02] LABS: Appearance Urine Clear; Color Urine Yellow; Glucose Urine UA Negative (Negative); Leukocyte Esterase Urine Negative (Negative); Nitrite Urine Negative (Negative); PH 7.5 (5.0-9.0); Specific Gravity - Urine <= 1.005 (1.005-1.025); Urine Blood Negative (Negative); Urine Ketones Negative (Negative); Urine Protein Negative (Neg-Trace)
[2024-04-14 13:15] LABS: MANUAL DIFF FLAG NO
[2024-04-14 13:16] LABS: Basophils Absolute Auto 0.1 X10*3/uL (0.0-0.2); Basophils Percent Auto 0.8 % (0-2); Eosinophils Absolute Auto 0.2 X10*3/uL (0.0-0.4); Hemoglobin 14.5 g/dl (12.0-16.0); Imm Gran Abs Auto 0.01 X10*3/uL (0.00-0.03); Imm Gran Pct Auto 0.1 % (0.0-0.4); Lymphocytes Absolute Auto 2.3 X10*3/uL (1.2-4.9); Lymphocytes Percent Auto 31.1 % (20-40); Mean Corpuscular HGB Conc 31.5 g/dl (31.0-35.0); Mean Corpuscular Hemoglobin 31.3 pg (27.0-33.0); Mean Corpuscular Volume 99.1 fL (80.0-98.0); Mean Platelet Volume 9.7 fL (9.4-12.3); Monocytes Absolute Auto 0.5 X10*3/uL (0.1-1.2); Monocytes Percent Auto 6.4 % (2-11); Neutrophils Absolute Auto 4.4 x10*3/uL (2.0-8.3); Neutrophils Percent Auto 59.6 % (45-73); Platelet Count 239 X10*3/uL (160-400); Red Blood Count 4.64 X10*6/uL (4.20-5.50); Red Cell Distribution Width 13.5 % (11.0-16.0); White Blood Count 7.4 X10*3/uL (4.8-10.8)
[2024-04-14] MEDS: methylPREDNISolone Sod Succ 125 MG/2 ML VIAL 60 MG IVPUSH (13:18)
[2024-04-14 13:36] LABS: Influenza A PCR NEGATIVE (Negative); Influenza B PCR NEGATIVE (Negative); Resp Syncy Virus RNA Qual PCR NEGATIVE (Negative); SARS COV2 PCR INHOUSE NEGATIVE (Negative)
[2024-04-14 13:39] LABS: B Type Natriuretic Peptide 51 pg/mL (<100)
[2024-04-14 13:41] LABS: Troponin-I High Sensitivity 2.8 ng/L (<3.5-17.0)
[2024-04-14 13:51] LABS: Alanine Aminotransferase 10 U/L (0-31); Albumin Level 4.4 g/dL (3.5-5.0); Alkaline Phosphatase 73 U/L (39-117); Anion Gap 11 (12-20); Aspartate Amino Transferase 15 U/L (5-31); Bilirubin Direct 0.1 mg/dL (0.0-0.5); Bilirubin Total 0.3 mg/dL (0.0-1.0); Blood Urea Nitrogen 7 mg/dL (9-16); Calcium 10.2 mg/dL (8.4-10.2); Carbon Dioxide 34 mmol/L (22-29); Chloride 101 mmol/L (96-108); Creatinine Clr Calc Pharmacy 112.5; Estimated Glomerular Filt Rate > 60; Glucose Random 113 mg/dL (60-115); Magnesium 2.1 mg/dL (1.6-2.6); Sodium 142 mmol/L (135-145); Total Protein 7.3 g/dL (6.5-8.0)
[2024-04-14 14:46] VITALS: BP 130/77; PULSE 79; RESP 20; O2SAT 94
[2024-04-14 16:13] VITALS: BP 130/77; PULSE 79; RESP 20; TEMP 36.9; O2SAT 94
== END 2024-04-14 16:14 | disposition home or self-care (01) ==
PROVIDERS: Physician Assistant; Emergency Provider Emergency Medicine Emergency Medical Services; PCP Internal Medicine
DX: J44.1 Chronic obstructive pulmonary disease with (acute) exacerbation (principal); R60.0 Localized edema; R05.9 Cough, unspecified; R06.02 Shortness of breath; G47.33 Obstructive sleep apnea (adult) (pediatric); F17.210 Nicotine dependence, cigarettes, uncomplicated; Z71.6 Tobacco abuse counseling; Z99.81 Dependence on supplemental oxygen; Z99.89 Dependence on other enabling machines and devices; Z79.01 Long term (current) use of anticoagulants; Z79.899 Other long term (current) drug therapy; Z03.818 Encounter for observation for suspected exposure to other biological agents ruled out
CPT/HCPCS: 0241U; 36415; 71045; 80048; 80076; 81003; 83735; 83880; 84484; 85025; 93005; 94640; 96374; 99284; 99285; J2919

== ENCOUNTER → 2024-04-14 12:37 | Outpatient (BNV) | payer MEDICAID, SELFPAY | PROVIDERS: Emergency Provider Emergency Medicine Emergency Medical Services; PCP Internal Medicine; Visit Provider Internal Medicine | DX: R94.31 Abnormal electrocardiogram [ECG] [EKG] (principal) | CPT/HCPCS: 93010 ==

== ENCOUNTER 2024-04-29 14:21 | Emergency (ER) | payer MEDICAID, SELFPAY ==
[2024-04-29] VITALS (7 sets, daily range): BP systolic 113–148; BP diastolic 63–75; PULSE 84–96; RESP 17–22; TEMP 36.9–37.3; O2SAT 89–96; BMI 33.3
--- NOTE | 2024-04-29 | ECG_ITS ---
Test Reason : WEAKNESS Blood Pressure : / mmHG Vent. Rate : 088 BPM Atrial Rate : 088 BPM P-R Int : 142 ms QRS Dur : 080 ms QT Int : 370 ms P-R-T Axes : 043 048 050 degrees QTc Int : 447 ms Normal sinus rhythm Normal ECG When compared with ECG of 14-APR-2024 13:10, Nonspecific T wave abnormality no longer evident in Lateral leads Referred By: Arina Lowe Electronically Signed By:ALEJANDRO MCCLELLAN
--- NOTE | ~2024-04-29 | XR_ITS ---
EXAMINATION: XR chest 1V CLINICAL INFORMATION: Shortness of breath COMPARISON: April 14, 2024 TECHNIQUE: Single portable frontal view. Tubes and lines: None Lungs and pleura: Mild interstitial opacification at lower lobe concerning for possible mild developing infiltrates. No dense lobar consolidation lobar pneumonia. No significant pleural effusion. Heart and mediastinum: The mediastinum is within normal limits.. Bones/soft tissue: Skeletal structures included are normal for patient's age. XR/XR chest 1V IMPRESSION: Mild interstitial opacification at lower lobes concerning for possible developing mild interstitial infiltrates. No dense lobar consolidation or pleural effusion.
--- NOTE | 2024-04-29 14:40 | ED.GENADULT ---
HPI - General Adult General Chief complaint: Dyspnea Stated complaint: DIZZY,WEAK,SHAKEY PER EMS Time Seen by Provider: 04/29/24 14:36 Source: patient, EMS, RN notes reviewed and old records reviewed Mode of arrival: EMS History of Present Illness ED Provider: Arina Lowe PA-C HPI narrative: 54-year-old female with a past medical history of asthma/COPD on chronic 3L NC, active smoker, FABIOLA on CPAP, bipolar, depression, PTSD, borderline personality disorder, substance use disorder, presenting to the ED via EMS complaining of lightheadedness, generalized fatigue/weakness, and feeling shaky x2 hours. Reports pedal edema. Denies SOB, CP, abdominal pain, nausea/vomiting. Related Data Home Medications ?Medication ?Instructions ?Recorded ?Confirmed lithium carbonate 450 mg 450 mg PO TID 05/14/23 03/17/24 tablet,extended release cyanocobalamin (vitamin B-12) 1,000 mcg PO DAILY 06/11/23 03/17/24 1,000 mcg tablet (Vitamin B-12) ipratropium 0.5 mg-albuterol 3 mg 3 ml inhalation RQ6H PRN Shortness 06/11/23 03/17/24 (2.5 mg base)/3 mL nebulization Of Breath Or Wheezing soln cetirizine 10 mg tablet 10 mg PO DAILY PRN Allergy Symptoms 12/19/23 03/17/24 melatonin 3 mg tablet 3 mg PO BEDTIME 12/19/23 03/17/24 valacyclovir 500 mg tablet 500 mg PO DAILY 12/19/23 03/17/24 omeprazole 20 mg capsule,delayed 20 mg PO DAILY@0630 12/29/23 03/17/24 release apixaban 5 mg tablet (Eliquis) 5 mg PO BID 02/20/24 03/17/24 cholecalciferol (vitamin D3) 25 25 mcg PO DAILY 02/20/24 03/17/24 mcg (1,000 unit) tablet (Vitamin D3) gabapentin 300 mg capsule 300 mg PO TID 02/20/24 03/17/24 gabapentin 300 mg capsule 300 mg PO DAILY PRN breakthrough 03/17/24 03/17/24 neuropathy Previous Rx's ?Medication ?Instructions ?Recorded albuterol sulfate 90 mcg/actuation 2 puff inhalation Q4H PRN 03/22/23 aerosol inhaler (Ventolin HFA) shortness of breath or wheezing #6.7 grams clonidine HCl 0.2 mg tablet 0.2 mg PO BEDTIME #30 tabs 03/22/23 ferrous sulfate 324 mg (65 mg 324 mg PO DAILY #30 tabs 03/22/23 iron) tablet,delayed release olanzapine 10 mg tablet 10 mg PO BEDTIME #30 tabs 03/22/23 ropinirole 1 mg tablet 1 mg PO BEDTIME #30 tabs 03/22/23 tiotropium bromide 18 mcg capsule 18 mcg inhalation RDAILY #20 03/22/23 with inhalation device (Spiriva inhalations with HandiHaler) nicotine 21 mg/24 hr daily 21 mg transdermal DAILY #28 ea 02/22/24 transdermal patch doxycycline monohydrate 100 mg 100 mg PO BID #7 caps 03/19/24 capsule prednisone 10 mg tablet 10 mg PO DAILY #5 tabs 03/19/24 doxycycline hyclate 100 mg tablet 100 mg PO BID 7 days #14 tabs 04/14/24 guaifenesin 1,200 mg tablet, 1,200 mg PO BID #14 tabs 04/14/24 extended release 12 hr (Mucinex) ipratropium 0.5 mg-albuterol 3 mg 3 ml inhalation Q4H PRN shortness 04/14/24 (2.5 mg base)/3 mL nebulization of breath or wheezing #90 mL soln prednisone 10 mg tablets in a dose See Taper PO DAILY #48 ea 04/14/24 pack Allergies Allergy/AdvReac Type Severity Reaction Status Date / Time aspirin Allergy Mild Anaphylaxis Verified 04/29/24 15:19 ampicillin Allergy Rash Verified 04/29/24 15:19 Penicillins Allergy Anaphylaxis Verified 04/29/24 15:19 latex AdvReac Rash Verified 04/29/24 15:19 Latex, Natural Rubber AdvReac Rash Verified 04/29/24 15:19 seafood AdvReac Anaphylaxis Verified 04/29/24 15:19 Sulfa (Sulfonamide AdvReac Hives Verified 04/29/24 15:19 Antibiotics) Review of Systems Review of Systems: Constitutional: No Fever, No Chills, +shaky ENT/Mouth: No Ear Pain, No Nasal Congestion, No sore throat, No Rhinorrhea, No Swallowing Difficulty Cardiovascular: No Chest Pain, No SOB Respiratory: No Cough, No Sputum, +Wheezing Gastrointestinal: No Nausea, No Vomiting, No Diarrhea, No Constipation, No Abdominal pain Genitourinary: No Dysuria, No Urinary Frequency, No Hematuria, No Flank Pain Musculoskeletal: No joint pain, No Myalgias, No Joint Swelling Skin: No Skin Lesions, No rash Neuro: + Weakness, No Numbness, No Paresthesias, + lightheaded Yes all other systems are reviewed and are negative Constitutional: Constitutional: Reports as per [facility] Past Medical History Attestation statement: The following information was validated with the patient. Source: old records reviewed Medical History Morbid obesity Intentional overdose Acute bronchospasm Bipolar I disorder with depression Overdose on Tylenol Suicide attempt Asthma COPD (chronic obstructive pulmonary disease) Chronic lung disease Neoplasm of parotid gland Depression 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 Drug abuse Bipolar I disorder Post traumatic stress disorder (PTSD) Tobacco use disorder FABIOLA (obstructive sleep apnea) Borderline personality disorder Intermittent explosive disorder Asthma exacerbation in COPD Herpes Tobacco use Bipolar disorder COPD (chronic obstructive pulmonary disease) Surgical History History of ankle surgery History of back surgery Hx of cholecystectomy History of appendectomy Family History Family History Mother COPD (chronic obstructive pulmonary disease) Social History Social History Household Members: Caregiver Household Members Other:: So Housing: Apartment Housing Other:: Sleeps on the couch at [facility] house Do you presently have visiting nurse or other home services: No Unable to assess alcohol history related to: Unknown Alcohol intake: former Comment: 1:1sitter Patient Tobacco Use Status: Current everyday Tobacco user Tobacco use type: Cigarette and Smokeless Tobacco Cigarette Packs Per Day: 1 Cigarettes Per Day: 3 Years Smoked: 20 Smoked in Last 30 Days: Yes e-Cigarette/Vaping Use: Never Used Second Hand Smoke Exposure: No Use of substances other than those prescribed or required for medical reasons: Unknown Substance Use Type: Crack/Cocaine Advance Directives: Yes Advance Directives on File: Yes Advance Directives Date on File: 06/17/22 Patient : No service: No Current occupational status: unemployed and disabled Sexual orientation: Straight/Heterosexual Physical Exam ED Vital Signs: Vital Signs - 24 hr 04/29/24 15:18 04/29/24 15:20 04/29/24 15:42 Temperature 98.8 F Pulse Rate 88 84 Respiratory Rate 20 20 22 H Blood Pressure 125/63 Pulse Oximetry 95 Oxygen Delivery Method Room Air Oxygen Flow Rate 04/29/24 16:00 Temperature 98.4 F Pulse Rate 87 Respiratory Rate 17 Blood Pressure 113/69 Pulse Oximetry 92 Oxygen Delivery Method Nasal Cannula Oxygen Flow Rate 3 BMI result Body Mass Index 33.3 Const General: cooperative, healthy appearing and no acute distress Orientation/consciousness: patient oriented x3 Limitations: no limitations HENMT Head: Yes normal to inspection and Yes atraumatic Ears: hearing grossly normal bilaterally General nose exam: Normal external nose present Face and sinus: Yes normal facial exam Eyes General: appearance normal, both eyes and all related structures EOM: EOMs intact bilaterally Neck Neck: Yes normal visual inspection and Yes no meningeal signs Resp Effort & Inspection: normal respiratory effort, no respiratory distress and tachypneic Auscultation: wheezes expiratory wheezes, inspiratory wheezes and throughout and diminished lung sounds diffuse Cardio Rate: regular rate Heart sounds: S1 normal heart sound present and S2 normal heart sound present GI Inspection: Yes normal to inspection Palpation (GI): Soft to palpation, nontender, no guarding and not rigid General: Yes no CVA tenderness Back/Spine/Pelvis Back: no CVA tenderness Skin Rashes: no rashes Wounds: no wounds Neuro General: patient oriented x3, tone normal and no meningeal signs Cranial nerves: Yes CN's II-XII intact bilaterally Gait exam (Neuro): Normal gait present Extrem General: Yes pedal edema Course Course Course Narrative: -1601--mild leukocytosis of 12.1 XR chest 1V IMPRESSION: Mild interstitial opacification at lower lobes concerning for possible developing mild interstitial infiltrates. No dense lobar consolidation or pleural effusion. > IV Levaquin ordered. -troponin 6.2 > will obtain 3 hour repeat. Labs otherwise reassuring -COVID/flu/RSV negative -1606--on re-evaluation patient is still with diminished lung sounds and diffuse expiratory wheeze. Additional DuoNeb ordered. Plan for admission, case discussed with Dr. Cavazos who evaluated patient and believes patient does not need inpatient criteria. 1630--ED care transferred to [facility]ON[facility] Mccoy pending remaining labs and re-evaluation Medications Administered Discontinued Medications Generic Name Dose Route Start Last Admin Trade Name Jacob PRN Reason Stop Dose Admin Albuterol Sulfate 7.5 mg/ 0 mg 04/29/24 15:28 04/29/24 15:42 Albuterol/Ipratropium 3 ml INHALE 04/29/24 15:29 1 each ONCE ONE Administration Medical Decision Making Medical Decision Making [facility] Narrative: 54-year-old female with a past medical history of asthma/COPD on chronic 3L NC, active smoker, FABIOLA on CPAP, bipolar, depression, PTSD, borderline personality disorder, substance use disorder, presenting to the ED via EMS complaining of lightheadedness, generalized fatigue/weakness, and feeling shaky x2 hours. On exam tachypneic, diffuse inspiratory and expiratory wheezes appreciated with diminished lung sounds throughout. Concern for COPD exacerbation vs metabolic abnormalities. Rule out infectious etiology. Low suspicion for severe sepsis at this time. Unlikely CVA/TIA. Lower suspicion for ACS/PE Plan: EKG, labs CXR, viral studies, ED bronchodilator protocol, IV Solu-Medrol Please refer to course for remaining clinical decision making, interpretation of labs/imaging results, and discussions with consultants and/or family members. Differential Diagnosis Differential Diagnoses: The differential diagnosis associated with the presentation includes As above Admission/Observation Consideration of admission/observation: Escalation of care including admission/observation considered Lab Data [facility] Lab Attestation statement: I reviewed the patient's lab results. 04/29/24 15:26 04/29/24 15:26 Labs: Lab Results 04/29/24 04/29/24 04/29/24 Range/Units 15:00 15:14 15:26 WBC 12.1 H (4.8-10.8) X10*3/uL RBC 5.32 (4.20-5.50) X10*6/uL Hgb 16.4 H (12.0-16.0) g/dl Hct 53.2 H (37.0-47.0) % MCV 100.0 H (80.0-98.0) fL MCH 30.8 (27.0-33.0) pg MCHC 30.8 L (31.0-35.0) g/dl RDW 13.5 (11.0-16.0) % Plt Count 280 (160-400) X10*3/uL MPV 9.8 (9.4-12.3) fL Immature Gran % (Auto) 0.5 H (0.0-0.4) % Neut % (Auto) 76.9 H (45-73) % Lymph % (Auto) 18.2 L (20-40) % [place] % (Auto) 3.5 (2-11) % Eos % (Auto) 0.2 (0-4) % Baso % (Auto) 0.7 (0-2) % Lymph # (Auto) 2.2 (1.2-4.9) X10*3/uL [place] # (Auto) 0.4 (0.1-1.2) X10*3/uL Eos # (Auto) 0.0 (0.0-0.4) X10*3/uL Baso # (Auto) 0.1 (0.0-0.2) X10*3/uL Abs Immat Gran (auto) 0.06 H (0.00-0.03) X10*3/uL Absolute Neuts (auto) 9.3 H (2.0-8.3) x10*3/uL Absolute Nucleated RBC 0.000 (0.0-0.012) X10*3/uL Nucleated RBC % (auto) 0.0 (0.0-0.2) /100WBC PT 11.3 (11.1-13.3) SEC INR 0.9 (0.9-1.1) Sodium 140 (135-145) mmol/L Potassium 4.6 (3.3-5.1) mmol/L Chloride 99 (96-108) mmol/L Carbon Dioxide 34 H (22-29) mmol/L Anion Gap 12 (12-20) BUN 9 (9-16) mg/dL Creatinine 0.62 (0.5-1.4) mg/dL Estim Creat Clear Calc 116.7 Estimated GFR > 60 POC Glucose 141 H (60-115) mg/dL Random Glucose 106 (60-115) mg/dL Calcium 10.4 H (8.4-10.2) mg/dL Magnesium 2.1 (1.6-2.6) mg/dL Total Bilirubin 0.4 (0.0-1.0) mg/dL Direct Bilirubin 0.1 (0.0-0.5) mg/dL AST 11 (5-31) U/L ALT 10 (0-31) U/L Alkaline Phosphatase 57 (39-117) U/L Troponin I High Sens 6.2 D (<3.5-17.0) ng/L B-Natriuretic Peptide 74 (<100) pg/mL Total Protein 6.7 (6.5-8.0) g/dL Albumin 4.3 (3.5-5.0) g/dL Influenza Type A (PCR) NEGATIVE (Negative) Influenza Type B (PCR) NEGATIVE (Negative) RSV RNA Qual (PCR) NEGATIVE (Negative) SARS-CoV-2 RNA (RT-PCR) NEGATIVE (Negative) Independent Interpretation I performed an independent interpretation of an: EKG (My interpretation EKG normal sinus rhythm rate of 88. MI interval 142. QTC 447. No STEMI.) and Plain X-Ray Radiology Impression Discussion of test interpretation with radiology: I have reviewed the radiologist's reading. Independent Historian Clinical information obtained from an independent historian. History obtained from or confirmed by: EMS External Record Review External record reviewed: Inpatient record, Office record, Outpatient record, Prior outpatient labs, Prior outpatient radiology, Primary care record and Outside ED record Tests considered The following testing was considered but not selected: As above Chronic Conditions Patient?s care impacted by: Other (COPD) Critical Care Time Critical Care Time Critical Care Time: Yes Total Critical Care Time: 60 Attestation: I have personally provided critical care time exclusive of time spent on separately billable procedures. Time includes review of lab data, radiology results, discussion with consultants, and monitoring for potential decompensation. Intervention performed as documented. Discharge Plan Discharge Clinical Impression: Acute exacerbation of chronic obstructive airways disease Pneumonia Qualifiers: Pneumonia type: due to unspecified organism Laterality: left Lung location: lower lobe of lung Qualified Code(s): J18.9 - Pneumonia, unspecified organism Patient Disposition: Admitted As Inpatient Print Language: Bulgarian
[2024-04-29 15:05] LABS: Glucose, Whole Blood 141 mg/dL (60-115)
--- NOTE | 2024-04-29 15:22 | PC.NURSE ---
patient arrives via EMS with complaints of shortness of breath, and dizziness starting about an hour prior to arrival, patient states she has a history of COPD and wears oxygen at baseline, denies fevers or chest pain, states she is very short of breath in the heat and upon exertion. wheezes auscultated bilaterally throughout lung carey. patinet placed on ekg monitor tech. EKG completed at this time. patient difficult stick, delay in obtaining blood work
[2024-04-29 15:35] LABS: MANUAL DIFF FLAG NO
[2024-04-29 15:39] LABS: Basophils Absolute Auto 0.1 X10*3/uL (0.0-0.2); Basophils Percent Auto 0.7 % (0-2); Eosinophils Percent Auto 0.2 % (0-4); Hematocrit 53.2 % (37.0-47.0); Hemoglobin 16.4 g/dl (12.0-16.0); Imm Gran Abs Auto 0.06 X10*3/uL (0.00-0.03); Imm Gran Pct Auto 0.5 % (0.0-0.4); Lymphocytes Absolute Auto 2.2 X10*3/uL (1.2-4.9); Lymphocytes Percent Auto 18.2 % (20-40); Mean Corpuscular HGB Conc 30.8 g/dl (31.0-35.0); Mean Corpuscular Hemoglobin 30.8 pg (27.0-33.0); Mean Platelet Volume 9.8 fL (9.4-12.3); Monocytes Absolute Auto 0.4 X10*3/uL (0.1-1.2); Monocytes Percent Auto 3.5 % (2-11); Neutrophils Absolute Auto 9.3 x10*3/uL (2.0-8.3); Neutrophils Percent Auto 76.9 % (45-73); Platelet Count 280 X10*3/uL (160-400); Red Blood Count 5.32 X10*6/uL (4.20-5.50); Red Cell Distribution Width 13.5 % (11.0-16.0); White Blood Count 12.1 X10*3/uL (4.8-10.8)
[2024-04-29] MEDS: Albuterol Sulfate 7.5 MG, Albuterol/Iprat 2.5/0.5MG 3 ML 3 ML INHALE (15:42)
[2024-04-29 15:46] LABS: INTERNATIONAL NORM RATIO 0.9 (0.9-1.1); Prothrombin Time 11.3 SEC (11.1-13.3)
[2024-04-29 16:04] LABS: Alanine Aminotransferase 10 U/L (0-31); Albumin Level 4.3 g/dL (3.5-5.0); Alkaline Phosphatase 57 U/L (39-117); Anion Gap 12 (12-20); Aspartate Amino Transferase 11 U/L (5-31); Bilirubin Direct 0.1 mg/dL (0.0-0.5); Bilirubin Total 0.4 mg/dL (0.0-1.0); Blood Urea Nitrogen 9 mg/dL (9-16); Calcium 10.4 mg/dL (8.4-10.2); Carbon Dioxide 34 mmol/L (22-29); Chloride 99 mmol/L (96-108); Creatinine Clr Calc Pharmacy 116.7; Estimated Glomerular Filt Rate > 60; Glucose Random 106 mg/dL (60-115); Magnesium 2.1 mg/dL (1.6-2.6); Potassium 4.6 mmol/L (3.3-5.1); Sodium 140 mmol/L (135-145); Total Protein 6.7 g/dL (6.5-8.0)
[2024-04-29 16:07] LABS: B Type Natriuretic Peptide 74 pg/mL (<100)
[2024-04-29 16:10] LABS: Troponin-I High Sensitivity 6.2 ng/L (<3.5-17.0)
[2024-04-29 16:17] LABS: Influenza A PCR NEGATIVE (Negative); Influenza B PCR NEGATIVE (Negative); Resp Syncy Virus RNA Qual PCR NEGATIVE (Negative); SARS COV2 PCR INHOUSE NEGATIVE (Negative)
--- NOTE | 2024-04-29 16:19 | PC.NURSE ---
Patient declining 2nd set of blood cultures, provider aware stating okay to not draw 2nd set
--- NOTE | 2024-04-29 16:21 | MHC.EDTECH ---
pt vitals checked, call castillo given, list of belongings done.
[2024-04-29] MEDS: Magnesium Sulfate/H2O 2 GM/50 ML PIGGYBACK IV (16:31)
[2024-04-29] MEDS: methylPREDNISolone Sod Succ 125 MG/2 ML VIAL IVPUSH (16:31)
[2024-04-29 16:37] LABS: Lactic Acid 0.8 mmol/L (0.5-2.0)
[2024-04-29] MEDS: Albuterol Sulfate 5 MG, Albuterol/Iprat 2.5/0.5MG 3 ML 3 ML INHALE (17:05)
[2024-04-29] MEDS: levoFLOXacin 750 MG TABLET PO (17:05)
--- NOTE | 2024-04-29 18:25 | PC.NURSE ---
Patient to be transported home via EMS
--- NOTE | 2024-04-29 19:37 | PC.NURSE ---
assumed care of pt at 1900 - per previous RN pt is discharged and waiting for ambulance transport back home.
== END 2024-04-29 19:55 | disposition home or self-care (01) ==
PROVIDERS: Physician Assistant; Emergency Provider Emergency Medicine
DX: J18.9 Pneumonia, unspecified organism (principal); R06.02 Shortness of breath; R42 Dizziness and giddiness; R53.1 Weakness; J44.9 Chronic obstructive pulmonary disease, unspecified; R60.0 Localized edema; F17.210 Nicotine dependence, cigarettes, uncomplicated; Z79.899 Other long term (current) drug therapy; Z03.818 Encounter for observation for suspected exposure to other biological agents ruled out
CPT/HCPCS: 0241U; 36415; 71045; 80048; 80076; 82947; 83605; 83735; 83880; 84484; 85025; 85610; 87040; 93005; 94640; 96365; 96366; 96375; 99285; J2919; J3475

== ENCOUNTER → 2024-04-29 14:53 | Outpatient (BNV) | payer MEDICAID, SELFPAY | PROVIDERS: Emergency Provider Emergency Medicine; Visit Provider Internal Medicine | DX: R53.1 Weakness (principal) | CPT/HCPCS: 93010 ==

== ENCOUNTER 2024-05-03 15:35 | Emergency (ER) | payer MEDICAID, SELFPAY ==
[2024-05-03] VITALS (8 sets, daily range): BP systolic 115–130; BP diastolic 67–81; PULSE 81–94; RESP 16–23; TEMP 36.4–37.1; O2SAT 90–94; BMI 42.9
--- NOTE | ~2024-05-03 | XR_ITS ---
EXAMINATION: XR CHEST CLINICAL INFORMATION: Fever and cough COMPARISON: 04/29/2024 TECHNIQUE: 2 views of the chest were obtained. FINDINGS: No significant abnormality is noted involving the heart, lungs, mediastinum, bony thorax or soft tissues. XR/XR chest 2V IMPRESSION: Unremarkable examination.
--- NOTE | 2024-05-03 15:48 | ED.GENADULT ---
HPI - General Adult General Chief complaint: Dyspnea Stated complaint: SOB, WARM,CRAMPS,DIZZY, HX COPD Time Seen by Provider: 05/03/24 15:47 History of Present Illness ED Provider: Papo ROBLERO narrative: The patient is a 54-year-old woman with a history of COPD who says that she has felt unwell for 2 days. She says that she has had a sense of feeling hot alternating with chills. No definite sweats. She has had a cough and she says that she is bringing up yellow sputum. She says that she was seen here yesterday, but when I check the records her last visit seems to have been on April 29, 5 days ago. At that visit she was apparently offered hospitalization for a possible pneumonia but she seems to have declined and the hospitalists also seemed to have indicated the patient was not appropriate for hospitalization. The patient was discharged on a course of prednisone and levofloxacin. The patient ultimately admitted that she was not here yesterday and she must have been confusing yesterday with April 29. She says that she took the prescribed medications and is still not feeling well. She came to the hospital by ambulance today. Related Data Home Medications ?Medication ?Instructions ?Recorded ?Confirmed lithium carbonate 450 mg 450 mg PO TID 05/14/23 03/17/24 tablet,extended release cyanocobalamin (vitamin B-12) 1,000 mcg PO DAILY 06/11/23 03/17/24 1,000 mcg tablet (Vitamin B-12) ipratropium 0.5 mg-albuterol 3 mg 3 ml inhalation RQ6H PRN Shortness 06/11/23 03/17/24 (2.5 mg base)/3 mL nebulization Of Breath Or Wheezing soln cetirizine 10 mg tablet 10 mg PO DAILY PRN Allergy Symptoms 12/19/23 03/17/24 melatonin 3 mg tablet 3 mg PO BEDTIME 12/19/23 03/17/24 valacyclovir 500 mg tablet 500 mg PO DAILY 12/19/23 03/17/24 omeprazole 20 mg capsule,delayed 20 mg PO DAILY@0630 12/29/23 03/17/24 release apixaban 5 mg tablet (Eliquis) 5 mg PO BID 02/20/24 03/17/24 cholecalciferol (vitamin D3) 25 25 mcg PO DAILY 02/20/24 03/17/24 mcg (1,000 unit) tablet (Vitamin D3) gabapentin 300 mg capsule 300 mg PO TID 02/20/24 03/17/24 gabapentin 300 mg capsule 300 mg PO DAILY PRN breakthrough 03/17/24 03/17/24 neuropathy Previous Rx's ?Medication ?Instructions ?Recorded albuterol sulfate 90 mcg/actuation 2 puff inhalation Q4H PRN 03/22/23 aerosol inhaler (Ventolin HFA) shortness of breath or wheezing #6.7 grams clonidine HCl 0.2 mg tablet 0.2 mg PO BEDTIME #30 tabs 03/22/23 ferrous sulfate 324 mg (65 mg 324 mg PO DAILY #30 tabs 03/22/23 iron) tablet,delayed release olanzapine 10 mg tablet 10 mg PO BEDTIME #30 tabs 03/22/23 ropinirole 1 mg tablet 1 mg PO BEDTIME #30 tabs 03/22/23 tiotropium bromide 18 mcg capsule 18 mcg inhalation RDAILY #20 03/22/23 with inhalation device (Spiriva inhalations with HandiHaler) nicotine 21 mg/24 hr daily 21 mg transdermal DAILY #28 ea 02/22/24 transdermal patch doxycycline monohydrate 100 mg 100 mg PO BID #7 caps 03/19/24 capsule prednisone 10 mg tablet 10 mg PO DAILY #5 tabs 03/19/24 doxycycline hyclate 100 mg tablet 100 mg PO BID 7 days #14 tabs 04/14/24 guaifenesin 1,200 mg tablet, 1,200 mg PO BID #14 tabs 04/14/24 extended release 12 hr (Mucinex) ipratropium 0.5 mg-albuterol 3 mg 3 ml inhalation Q4H PRN shortness 04/14/24 (2.5 mg base)/3 mL nebulization of breath or wheezing #90 mL soln prednisone 10 mg tablets in a dose See Taper PO DAILY #48 ea 04/14/24 pack levofloxacin 750 mg tablet 750 mg PO DAILY #5 tabs 04/29/24 prednisone 50 mg tablet 50 mg PO DAILY #4 tabs 04/29/24 azithromycin 250 mg tablet 250 mg PO DAILY 4 days #4 tabs 05/03/24 prednisone 20 mg tablet 40 mg (2 x 20 mg) PO DAILY 4 days 05/03/24 #8 tabs Allergies Allergy/AdvReac Type Severity Reaction Status Date / Time aspirin Allergy Mild Anaphylaxis Verified 05/03/24 15:51 ampicillin Allergy Rash Verified 05/03/24 15:51 Penicillins Allergy Anaphylaxis Verified 05/03/24 15:51 latex AdvReac Rash Verified 05/03/24 15:51 Latex, Natural Rubber AdvReac Rash Verified 05/03/24 15:51 seafood AdvReac Anaphylaxis Verified 05/03/24 15:51 Sulfa (Sulfonamide AdvReac Hives Verified 05/03/24 15:51 Antibiotics) Review of Systems Review of Systems: Yes all other systems are reviewed and are negative [facility] Past Medical History Medical History Morbid obesity Intentional overdose Acute bronchospasm Bipolar I disorder with depression Overdose on Tylenol Suicide attempt Asthma COPD (chronic obstructive pulmonary disease) Chronic lung disease Neoplasm of parotid gland Depression 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 Drug abuse Bipolar I disorder Post traumatic stress disorder (PTSD) Tobacco use disorder FABIOLA (obstructive sleep apnea) Borderline personality disorder Intermittent explosive disorder Asthma exacerbation in COPD Herpes Tobacco use Bipolar disorder COPD (chronic obstructive pulmonary disease) Surgical History History of ankle surgery History of back surgery Hx of cholecystectomy History of appendectomy Family History Family History Mother COPD (chronic obstructive pulmonary disease) Social History Social History Household Members: Caregiver Household Members Other:: So Housing: Apartment Housing Other:: Sleeps on the couch at [facility] house Do you presently have visiting nurse or other home services: No Unable to assess alcohol history related to: Unknown Alcohol intake: former Comment: 1:1sitter Patient Tobacco Use Status: Current everyday Tobacco user Tobacco use type: Cigarette and Smokeless Tobacco Cigarette Packs Per Day: 1 Cigarettes Per Day: 3 Years Smoked: 20 Smoked in Last 30 Days: No e-Cigarette/Vaping Use: Never Used Second Hand Smoke Exposure: No Use of substances other than those prescribed or required for medical reasons: No Substance Use Type: Crack/Cocaine Advance Directives: Yes Advance Directives on File: Yes Advance Directives Date on File: 06/17/22 Patient : No service: No Current occupational status: unemployed and disabled Sexual orientation: Straight/Heterosexual Physical Exam ED Vital Signs: Vital Signs - 24 hr 05/03/24 15:48 05/03/24 15:53 05/03/24 16:24 Temperature 98.4 F Pulse Rate 87 84 Respiratory Rate 18 17 Blood Pressure 115/76 Pulse Oximetry 93 Oxygen Delivery Method Nasal Cannula Oxygen Flow Rate 05/03/24 16:34 05/03/24 16:56 05/03/24 18:00 Temperature 98.7 F 97.6 F Pulse Rate 86 81 94 Respiratory Rate 20 23 H 16 Blood Pressure 115/76 127/67 Pulse Oximetry 93 94 Oxygen Delivery Method Nasal Cannula Nasal Cannula Oxygen Flow Rate 4 1 05/03/24 18:07 Temperature 97.6 F Pulse Rate 94 Respiratory Rate 18 Blood Pressure 127/67 Pulse Oximetry 94 Oxygen Delivery Method Nasal Cannula Oxygen Flow Rate 1 BMI result Body Mass Index 42.9 Const Other: The patient is a chronically ill-appearing 54-year-old. She looks older than her age. She does not appear in acute distress. HENMT Other: Face is symmetrical. Mucous membranes moist. Eyes Other: Pupils are round equal, conjunctivae clear Neck Other: No JVD Resp Other: No increased work of breathing. Air entry is mildly coarse bilaterally. No margot wheezes or crackles. Cardio Rate: regular rate Rhythm: regular rhythm Heart sounds: S1 normal heart sound present and S2 normal heart sound present GI Other: Abdomen is soft and nontender Skin Other: Skin is dry and unremarkable Neuro Other: The patient is awake and alert with a normal mental status. Cranial nerves 2-12 are grossly intact. She moves her extremities symmetrically. She seems grossly neurologically intact. Extrem Other: Calf swelling or tenderness, no edema, no asymmetry Medications Administered Discontinued Medications Generic Name Dose Route Start Last Admin Trade Name Freq PRN Reason Stop Dose Admin Albuterol Sulfate 5 mg/ 7.5 mg 05/03/24 16:52 05/03/24 16:56 Albuterol Sulfate 2.5 mg INHALE 05/03/24 16:53 7.5 mg ONCE ONE Administration Albuterol/Ipratropium 3 ml 05/03/24 16:13 05/03/24 16:24 Albuterol/Iprat 2.5/0.5mg 3 Ml Ampul.Neb INHALE 05/03/24 16:14 3 ml ONCE ONE Administration Azithromycin 500 mg 05/03/24 17:58 05/03/24 18:02 Azithromycin 500 Mg Tablet PO 05/03/24 17:59 500 mg ONCE ONE Administration Prednisone 60 mg 05/03/24 16:47 05/03/24 17:02 Prednisone 20 Mg Tablet PO 05/03/24 16:48 60 mg ONCE ONE Administration Medical Decision Making Medical Decision Making MDM Narrative: The patient is a 54-year-old female with a history of COPD. She has still a smoker. She is on home oxygen. She presents complaining of feeling hot and cold and short of breath and coughing a lot, bringing up sputum. She does not seem particularly toxic. Overall she does not appear remarkably ill. She has not tachycardic or febrile here in the emergency room. Her labs are unremarkable. She was treated with updrafts with improvement in her symptoms. She will be placed on a course of prednisone and azithromycin. She was discharged to follow up with the regular doctor. Lab Data 05/03/24 16:50 05/03/24 16:51 Labs: Lab Results 05/03/24 05/03/24 05/03/24 Range/Units 16:50 16:51 16:58 WBC 11.9 H (4.8-10.8) X10*3/uL RBC 5.36 (4.20-5.50) X10*6/uL Hgb 16.3 H (12.0-16.0) g/dl Hct 53.8 H (37.0-47.0) % MCV 100.4 H (80.0-98.0) fL MCH 30.4 (27.0-33.0) pg MCHC 30.3 L (31.0-35.0) g/dl RDW 13.7 (11.0-16.0) % Plt Count 220 (160-400) X10*3/uL MPV 10.6 (9.4-12.3) fL Immature Gran % (Auto) 0.6 H (0.0-0.4) % Neut % (Auto) 77.0 H (45-73) % Lymph % (Auto) 17.3 L (20-40) % Marshall % (Auto) 4.4 (2-11) % Eos % (Auto) 0.1 (0-4) % Baso % (Auto) 0.6 (0-2) % Lymph # (Auto) 2.1 (1.2-4.9) X10*3/uL Marshall # (Auto) 0.5 (0.1-1.2) X10*3/uL Eos # (Auto) 0.0 (0.0-0.4) X10*3/uL Baso # (Auto) 0.1 (0.0-0.2) X10*3/uL Abs Immat Gran (auto) 0.07 H (0.00-0.03) X10*3/uL Absolute Neuts (auto) 9.2 H (2.0-8.3) x10*3/uL Absolute Nucleated RBC 0.000 (0.0-0.012) X10*3/uL Nucleated RBC % (auto) 0.0 (0.0-0.2) /100WBC VBG pH 7.44 H (7.32-7.43) VBG pCO2 46 mmHg VBG pO2 60 mmHg VBG HCO3 32 H (22-26) mmol/L VBG O2 Saturation 95.0 % VBG Base Excess 6.9 mmol/L Sodium 140 (135-145) mmol/L Potassium 4.5 (3.3-5.1) mmol/L Chloride 102 (96-108) mmol/L Carbon Dioxide 29 (22-29) mmol/L Anion Gap 14 (12-20) BUN 11 (9-16) mg/dL Creatinine 0.72 (0.5-1.4) mg/dL Estim Creat Clear Calc 119.6 Estimated GFR > 60 Random Glucose 100 (60-115) mg/dL Calcium 9.4 D (8.4-10.2) mg/dL Magnesium 2.1 (1.6-2.6) mg/dL Total Bilirubin 0.3 (0.0-1.0) mg/dL Direct Bilirubin 0.1 (0.0-0.5) mg/dL AST 10 (5-31) U/L ALT 10 (0-31) U/L Alkaline Phosphatase 58 (39-117) U/L Troponin I High Sens 11.9 D (<3.5-17.0) ng/L C-Reactive Protein 0.77 H (< or = 0.50) mg/dL B-Natriuretic Peptide 76 (<100) pg/mL Total Protein 6.9 (6.5-8.0) g/dL Albumin 4.2 (3.5-5.0) g/dL Ethyl Alcohol < 10 mg/dL Influenza Type A (PCR) NEGATIVE (Negative) Influenza Type B (PCR) NEGATIVE (Negative) RSV RNA Qual (PCR) NEGATIVE (Negative) SARS-CoV-2 RNA (RT-PCR) NEGATIVE (Negative) Independent Interpretation I performed an independent interpretation of an: EKG Interpretation: EKG at 16:05 shows normal sinus rhythm at 85 beats per minute. No definite acute ischemic changes. Discharge Plan Discharge Clinical Impression: Acute exacerbation of chronic obstructive airways disease Patient Disposition: Home, Self-Care Instructions: COPD (Chronic Obstructive Pulmonary Disease) (ED) Additional Instructions: Your testing in the emergency room today was reassuring. Please do your best to reduce or eliminate smoking. You have been started on another course of prednisone and another course of an antibiotic. Please take these medications as prescribed. Next doses for each of these is tomorrow. Your inhaler as both a maintenance inhaler and also a rescue inhaler. You may use your Advair inhaler as a rescue inhaler by taking 1-2 puffs every 4 hours if necessary. Otherwise use it as regularly prescribed. Please follow up soon with your regular doctor. Return to the emergency room if worse. Prescriptions: New prednisone 20 mg tablet 40 mg PO DAILY 4 Days Qty: 8 0RF azithromycin 250 mg tablet 250 mg PO DAILY 4 Days Qty: 4 0RF Rx Instructions: start on day 2 of therapy No Action ropinirole 1 mg Tablet 1 mg PO BEDTIME Qty: 30 0RF olanzapine 10 mg Tablet 10 mg PO BEDTIME Qty: 30 0RF clonidine HCl 0.2 mg Tablet 0.2 mg PO BEDTIME Qty: 30 0RF Protocol: Hold for SBP< HOLD for SBP < : 90 albuterol sulfate [Ventolin HFA] 90 mcg/actuation Hfa Aerosol Inhaler 2 puff inhalation Q4H PRN (Reason: shortness of breath or wheezing) Qty: 6.7 0RF tiotropium bromide [Spiriva with HandiHaler] 18 mcg Capsule, W/Inhalation Device 18 mcg inhalation RDAILY Qty: 20 0RF ferrous sulfate 324 mg (65 mg iron) Tablet,Delayed Release (Dr/Ec) 324 mg PO DAILY Qty: 30 0RF cetirizine 10 mg Tablet 10 mg PO DAILY PRN (Reason: Allergy Symptoms) melatonin 3 mg Tablet 3 mg PO BEDTIME valacyclovir 500 mg Tablet 500 mg PO DAILY omeprazole 20 mg Capsule,Delayed Release(Dr/Ec) 20 mg PO DAILY@0630 gabapentin 300 mg capsule 300 mg PO TID cholecalciferol (vitamin D3) [Vitamin D3] 25 mcg (1,000 unit) tablet 25 mcg PO DAILY Eliquis 5 mg Tablet 5 mg PO BID nicotine 21 mg/24 hr Patch 24 Hour 21 mg transdermal DAILY Qty: 28 0RF gabapentin 300 mg capsule 300 mg PO DAILY PRN (Reason: breakthrough neuropathy) doxycycline monohydrate 100 mg capsule 100 mg PO BID Qty: 7 0RF prednisone 10 mg tablet 10 mg PO DAILY Qty: 5 0RF prednisone 10 mg tablets,dose pack See Taper PO DAILY Qty: 48 0RF Taper: Prednisone 40 mg daily for 3 Days and 0 Hour 30 mg daily for 3 Days and 0 Hour 20 mg daily for 3 Days and 0 Hour 10 mg daily for 3 Days and 0 Hour Rx Instructions: 40 mg Daily x3 days, 30 mg daily x3 days, 20 mg daily x3 days, 10 mg daily x3 days doxycycline hyclate 100 mg tablet 100 mg PO BID 7 Days Qty: 14 0RF guaifenesin [Mucinex] 1,200 mg tablet extended release 12hr 1,200 mg PO BID Qty: 14 0RF ipratropium-albuterol 0.5 mg-3 mg(2.5 mg base)/3 mL solution for nebulization 3 ml inhalation Q4H PRN (Reason: shortness of breath or wheezing) Qty: 90 0RF lithium carbonate 450 mg tablet extended release 450 mg PO TID cyanocobalamin (vitamin B-12) [Vitamin B-12] 1,000 mcg tablet 1,000 mcg PO DAILY ipratropium-albuterol 0.5 mg-3 mg(2.5 mg base)/3 mL solution for nebulization 3 ml inhalation RQ6H PRN (Reason: Shortness Of Breath Or Wheezing) levofloxacin 750 mg tablet 750 mg PO DAILY Qty: 5 0RF prednisone 50 mg tablet 50 mg PO DAILY Qty: 4 0RF Referrals: Mike Malone MD [Physician] - (Acute exacerbation of COPD) Interventions: ED Discharge Assessment Last Done: 05/03/24 18:07 Discharge Date/Time: 05/03/24 18:10 Print Language: Kinyarwanda
--- NOTE | 2024-05-03 15:54 | ECG_ITS ---
Test Reason : SOB Blood Pressure : / mmHG Vent. Rate : 085 BPM Atrial Rate : 085 BPM P-R Int : 142 ms QRS Dur : 082 ms QT Int : 386 ms P-R-T Axes : 002 012 021 degrees QTc Int : 459 ms Normal sinus rhythm Normal ECG When compared with ECG of 29-APR-2024 14:53, Nonspecific T wave abnormality now evident in Inferior leads Referred By: Geovanni Barros Electronically Signed By:ALEJANDRO MCCLELLAN
[2024-05-03] MEDS: Albuterol/Iprat 2.5/0.5MG 3 ML AMPUL.NEB INHALE (16:24)
--- NOTE | 2024-05-03 16:54 | MHC.EDTECH ---
PATIENT WAS BIBA FROM HOME ,EKG TAKEN AND WAS READ BY PROVIDER ,PATIENT WAS HOOKED UP TO [facility] ,BLOOD DRAWN INCLUDING RSV/COVID SWAB ALL SENT TO LAB ,VITALS TAKEN PATIENT A&O ,PATIENT RESTING QUIETLY IN BED .CALL [facility] WITHIN PATIENT REACH .
[2024-05-03] MEDS: Albuterol Sulfate 5 MG, Albuterol Sulfate (0.083%) 2.5 MG 7.5 MG INHALE (16:56)
[2024-05-03 16:58] LABS: MANUAL DIFF FLAG NO
[2024-05-03 17:02] LABS: Basophils Absolute Auto 0.1 X10*3/uL (0.0-0.2); Basophils Percent Auto 0.6 % (0-2); Eosinophils Percent Auto 0.1 % (0-4); Hematocrit 53.8 % (37.0-47.0); Hemoglobin 16.3 g/dl (12.0-16.0); Imm Gran Abs Auto 0.07 X10*3/uL (0.00-0.03); Imm Gran Pct Auto 0.6 % (0.0-0.4); Lymphocytes Absolute Auto 2.1 X10*3/uL (1.2-4.9); Lymphocytes Percent Auto 17.3 % (20-40); Mean Corpuscular HGB Conc 30.3 g/dl (31.0-35.0); Mean Corpuscular Hemoglobin 30.4 pg (27.0-33.0); Mean Corpuscular Volume 100.4 fL (80.0-98.0); Mean Platelet Volume 10.6 fL (9.4-12.3); Monocytes Absolute Auto 0.5 X10*3/uL (0.1-1.2); Monocytes Percent Auto 4.4 % (2-11); Neutrophils Absolute Auto 9.2 x10*3/uL (2.0-8.3); Platelet Count 220 X10*3/uL (160-400); Red Blood Count 5.36 X10*6/uL (4.20-5.50); Red Cell Distribution Width 13.7 % (11.0-16.0); White Blood Count 11.9 X10*3/uL (4.8-10.8)
[2024-05-03] MEDS: predniSONE 20 MG TABLET 60 MG PO (17:02)
[2024-05-03 17:12] LABS: VBG Base Excess 6.9 mmol/L; VBG HCO3 32 mmol/L (22-26); VBG pCO2 46 mmHg; VBG pH 7.44 (7.32-7.43); VBG pO2 60 mmHg
[2024-05-03 17:13] LABS: Venous Blood Gas Refer to POC result
[2024-05-03 17:24] LABS: Ethanol < 10 mg/dL
[2024-05-03 17:28] LABS: Alanine Aminotransferase 10 U/L (0-31); Albumin Level 4.2 g/dL (3.5-5.0); Alkaline Phosphatase 58 U/L (39-117); Anion Gap 14 (12-20); Aspartate Amino Transferase 10 U/L (5-31); Bilirubin Direct 0.1 mg/dL (0.0-0.5); Bilirubin Total 0.3 mg/dL (0.0-1.0); Blood Urea Nitrogen 11 mg/dL (9-16); C Reactive Protein 0.77 mg/dL (< or = 0.50); Calcium 9.4 mg/dL (8.4-10.2); Carbon Dioxide 29 mmol/L (22-29); Chloride 102 mmol/L (96-108); Creatinine Clr Calc Pharmacy 119.6; Estimated Glomerular Filt Rate > 60; Glucose Random 100 mg/dL (60-115); Magnesium 2.1 mg/dL (1.6-2.6); Potassium 4.5 mmol/L (3.3-5.1); Sodium 140 mmol/L (135-145); Total Protein 6.9 g/dL (6.5-8.0)
[2024-05-03 17:29] LABS: B Type Natriuretic Peptide 76 pg/mL (<100)
[2024-05-03 17:34] LABS: Troponin-I High Sensitivity 11.9 ng/L (<3.5-17.0)
[2024-05-03 17:41] LABS: Influenza A PCR NEGATIVE (Negative); Influenza B PCR NEGATIVE (Negative); Resp Syncy Virus RNA Qual PCR NEGATIVE (Negative); SARS COV2 PCR INHOUSE NEGATIVE (Negative)
[2024-05-03] MEDS: Azithromycin 500 MG TABLET PO (18:02)
--- NOTE | 2024-05-03 18:07 | PC.NURSE ---
Care team to book lyft ride home. Patient stating she will wait on bench outside of ER, care team aware
== END 2024-05-03 18:10 | disposition home or self-care (01) ==
PROVIDERS: Emergency Provider Emergency Medicine
DX: J44.1 Chronic obstructive pulmonary disease with (acute) exacerbation (principal); R06.02 Shortness of breath; R42 Dizziness and giddiness; Z03.818 Encounter for observation for suspected exposure to other biological agents ruled out; Z79.899 Other long term (current) drug therapy
CPT/HCPCS: 0241U; 36415; 71046; 80048; 80076; 80307; 82803; 83735; 83880; 84484; 85025; 86140; 93005; 94640; 99284; 99285

== ENCOUNTER → 2024-05-03 15:54 | Outpatient (BNV) | payer MEDICAID, SELFPAY | PROVIDERS: Emergency Provider Emergency Medicine; Visit Provider Internal Medicine | DX: R06.02 Shortness of breath (principal) | CPT/HCPCS: 93010 ==

== ENCOUNTER 2024-05-09 15:13 | Inpatient (IN) | payer MEDICAID, SELFPAY ==
--- NOTE | ~2024-05-09 | CT_ITS ---
EXAMINATION: CT HEAD W/O IV CONTRAST CT CERVICAL SPINE W/O IV CONTRAST CLINICAL INFORMATION: Altered mental status. Neck trauma. COMPARISON: Head CT from 04/03/2024. CT imaging of the neck from 07/19/2022. TECHNIQUE: Head - Contiguous axial imaging of the head was performed from the skull base to the vertex without the administration of intravenous contrast, and axial images are reconstructed at 2 mm and 5 mm slice thickness. Cervical spine - A volumetric, helical CT acquisition of the cervical spine was obtained without contrast; in addition to the standard set of axial images, multiplanar reformatted images were provided in the coronal and sagittal imaging planes. This CT examination was performed using dose optimization techniques as appropriate, variously including the following: *Automated exposure control *Adjustment of mA and/or kV according to patient size (this includes techniques or standardized protocols for targeted exams where dose is matched to indication/reason for exam; i.e. extremities or head) *Use of iterative reconstruction technique DLP: 782.58 mGy-cm and 752.48 mGy-cm for imaging of the head which had to be repeated due to patient motion. 634.42 mGy-cm and 670.91 mGy-cm for the cervical spine exams (which had to be repeated because of patient motion) FINDINGS: HEAD: No acute intracranial findings. Jarvis to white matter differentiation is preserved. No evidence of intracranial hemorrhage, major vascular territory infarction, focal mass effect or midline shift. The ventricles have normal size and configuration. No hydrocephalus or extra-axial fluid collections. The calvarium is intact. Mild mucosal thickening of partially visualized maxillary sinuses. The mastoid air cells are well aerated. The temporomandibular joints are intact. The orbits and globes are unremarkable. CERVICAL SPINE: There is lack of lordotic curvature of the cervical spine. The craniocervical junction is normal. The occipital condyles, dens and atlantodental articulation are intact. The vertebral body heights and alignment are maintained. No fractures in the anterior or posterior elements. No prevertebral soft tissue edema or soft tissue hematoma. The disc spaces are well-preserved. Small anterior vertebral osteophytes are present at multiple levels (i.e., mild spondylosis). There is no evidence of any significant stenosis of the cervical spinal canal. Thyroid gland is grossly unremarkable. The lung apices have mosaic attenuation which can reflect air trapping phenomenon from inflammation of small airways. CT/CT cervical spine wo IV con IMPRESSION: * No intracranial hemorrhage or other acute acute intracranial pathology. * No fracture or malalignment in the cervical spine.
--- NOTE | ~2024-05-09 | CT_ITS ---
EXAMINATION: CT CHEST WITHOUT CONTRAST CLINICAL INFORMATION: Found down. Hypoxia. COMPARISON: Chest CT from 02/06/2024. TECHNIQUE: Multidetector volumetric CT imaging of the chest was done. Axial MIP volume rendering provided. Sagittal and coronal reformatted images were obtained. This CT examination was performed using dose optimization techniques as appropriate, variously including the following: *Automated exposure control *Adjustment of mA and/or kV according to patient size (this includes techniques or standardized protocols for targeted exams where dose is matched to indication/reason for exam; i.e. extremities or head) *Use of iterative reconstruction technique DLP: 606.65 mGy-cm for the chest CT, after acquisition of the topogram. FINDINGS: LOCALIZER IMAGES: Obese body habitus. LUNGS AND PLEURA: Mild respiratory motion on these images of the chest. The bronchial mcfarlane are diffusely thickened. Lungs have mosaic attenuation which suggests air trapping phenomenon secondary to inflammation of the small airways. Several scattered linear, hazy opacities of mild atelectasis in both lungs. There are no foci of dense consolidation with air bronchograms. No pleural effusion or pneumothorax. CARDIOVASCULAR: The heart size is normal. No pericardial effusion. Mild atherosclerotic calcification of the thoracic aorta without aneurysm. Pulmonary arteries are not well evaluated on this noncontrast examination. The pulmonary artery trunk is 3.4 cm diameter and this mild enlargement could be a manifestation of arterial hypertension. CORONARY ARTERY CALCIFICATION: None. MEDIASTINUM AND LOWER NECK: No mediastinal mass. The esophagus has normal wall thickness. LYMPHATICS: No pathologic sized lymph nodes. UPPER ABDOMEN: Status post cholecystectomy. There appears to be diffuse hepatic steatosis. The adrenal glands are normal. SKELETAL AND CHEST WALL: No acute or suspicious osseous abnormality. CT/CT chest wo IV con IMPRESSION: * Large body habitus. * Lungs have mosaic attenuation and bronchial mcfarlane are diffusely thickened as may be seen in the setting of asthma or bronchitis. Scattered mild hazy, streaky opacities of atelectasis but no lobar consolidation or pleural effusion. * Pulmonary artery trunk is mildly enlarged; this could be a manifestation of pulmonary arterial hypertension.
--- NOTE | 2024-05-09 15:33 | ECG_ITS ---
Test Reason : found down Blood Pressure : / mmHG Vent. Rate : 102 BPM Atrial Rate : 102 BPM P-R Int : 164 ms QRS Dur : 080 ms QT Int : 346 ms P-R-T Axes : 016 -24 051 degrees QTc Int : 450 ms Sinus tachycardia Otherwise normal ECG When compared with ECG of 03-MAY-2024 16:05, No significant change was found Referred By: Mary Beth Cisse Electronically Signed By:Deangelo Gutierres
[2024-05-09 15:43] VITALS: BP 130/86; PULSE 74; RESP 15; TEMP 36.9; O2SAT 94; BMI 40.8
[2024-05-09 16:58] VITALS: BP 117/86; PULSE 84; RESP 18; TEMP 36.7; O2SAT 90
[2024-05-09 17:00] LABS: MANUAL DIFF FLAG NO
--- NOTE | 2024-05-09 17:01 | ED.GENADULT ---
HPI - General Adult General Chief complaint: Altered Mental Status Stated complaint: fall/ ams Time Seen by Provider: 05/09/24 16:03 Source: patient, RN notes reviewed and old records reviewed Mode of arrival: EMS Limitations: no limitations History of Present Illness ED Provider: Russell ROBLERO narrative: 54-year-old female past medical history significant for O2 dependent COPD, pulmonary embolism, PTSD, bipolar disorder, polysubstance abuse, obesity presents for evaluation of altered mental status. Apparently EMS was called to the house as the patient was found. The patient reports having had 2 falls today She states that she ?feels like crap. ? She denies any pain She has a very poor historian EMS reported to nursing staff the patient has a history of crack and heroin abuse. The patient denies any substance abuse today She seems quite lethargic but does arise to verbal stimuli Related Data Home Medications ?Medication ?Instructions ?Recorded ?Confirmed lithium carbonate 450 mg 450 mg PO TID 05/14/23 03/17/24 tablet,extended release cyanocobalamin (vitamin B-12) 1,000 mcg PO DAILY 06/11/23 03/17/24 1,000 mcg tablet (Vitamin B-12) ipratropium 0.5 mg-albuterol 3 mg 3 ml inhalation RQ6H PRN Shortness 06/11/23 03/17/24 (2.5 mg base)/3 mL nebulization Of Breath Or Wheezing soln cetirizine 10 mg tablet 10 mg PO DAILY PRN Allergy Symptoms 12/19/23 03/17/24 melatonin 3 mg tablet 3 mg PO BEDTIME 12/19/23 03/17/24 valacyclovir 500 mg tablet 500 mg PO DAILY 12/19/23 03/17/24 omeprazole 20 mg capsule,delayed 20 mg PO DAILY@0630 12/29/23 03/17/24 release apixaban 5 mg tablet (Eliquis) 5 mg PO BID 02/20/24 03/17/24 cholecalciferol (vitamin D3) 25 25 mcg PO DAILY 02/20/24 03/17/24 mcg (1,000 unit) tablet (Vitamin D3) gabapentin 300 mg capsule 300 mg PO TID 02/20/24 03/17/24 gabapentin 300 mg capsule 300 mg PO DAILY PRN breakthrough 03/17/24 03/17/24 neuropathy Previous Rx's ?Medication ?Instructions ?Recorded albuterol sulfate 90 mcg/actuation 2 puff inhalation Q4H PRN 03/22/23 aerosol inhaler (Ventolin HFA) shortness of breath or wheezing #6.7 grams clonidine HCl 0.2 mg tablet 0.2 mg PO BEDTIME #30 tabs 03/22/23 ferrous sulfate 324 mg (65 mg 324 mg PO DAILY #30 tabs 03/22/23 iron) tablet,delayed release olanzapine 10 mg tablet 10 mg PO BEDTIME #30 tabs 03/22/23 ropinirole 1 mg tablet 1 mg PO BEDTIME #30 tabs 03/22/23 tiotropium bromide 18 mcg capsule 18 mcg inhalation RDAILY #20 03/22/23 with inhalation device (Spiriva inhalations with HandiHaler) nicotine 21 mg/24 hr daily 21 mg transdermal DAILY #28 ea 02/22/24 transdermal patch doxycycline monohydrate 100 mg 100 mg PO BID #7 caps 03/19/24 capsule prednisone 10 mg tablet 10 mg PO DAILY #5 tabs 03/19/24 doxycycline hyclate 100 mg tablet 100 mg PO BID 7 days #14 tabs 04/14/24 guaifenesin 1,200 mg tablet, 1,200 mg PO BID #14 tabs 04/14/24 extended release 12 hr (Mucinex) ipratropium 0.5 mg-albuterol 3 mg 3 ml inhalation Q4H PRN shortness 04/14/24 (2.5 mg base)/3 mL nebulization of breath or wheezing #90 mL soln prednisone 10 mg tablets in a dose See Taper PO DAILY #48 ea 04/14/24 pack levofloxacin 750 mg tablet 750 mg PO DAILY #5 tabs 04/29/24 prednisone 50 mg tablet 50 mg PO DAILY #4 tabs 04/29/24 azithromycin 250 mg tablet 250 mg PO DAILY 4 days #4 tabs 05/03/24 prednisone 20 mg tablet 40 mg (2 x 20 mg) PO DAILY 4 days 05/03/24 #8 tabs nystatin 100,000 unit/mL oral 500,000 unit (5 mL) buccal Q6H 1 05/09/24 suspension week #140 mL Allergies Allergy/AdvReac Type Severity Reaction Status Date / Time aspirin Allergy Mild Anaphylaxis Verified 05/09/24 15:46 ampicillin Allergy Rash Verified 05/09/24 15:46 Penicillins Allergy Anaphylaxis Verified 05/09/24 15:46 latex AdvReac Rash Verified 05/09/24 15:46 Latex, Natural Rubber AdvReac Rash Verified 05/09/24 15:46 seafood AdvReac Anaphylaxis Verified 05/09/24 15:46 Sulfa (Sulfonamide AdvReac Hives Verified 05/09/24 15:46 Antibiotics) Review of Systems Constitutional: Constitutional: Denies body ache(s), Denies chills, Denies fever(s), Reports frequent falls and Reports weakness Eyes: Eyes: Denies blurry vision ENT: Denies vertigo and Denies dizziness Cardiovascular: Cardiovascular: Denies chest pain and Reports dyspnea Respiratory: Respiratory: Denies cough and Reports dyspnea Gastrointestinal: Gastrointestinal: Denies abdominal pain, Denies nausea and Denies vomiting Musculoskeletal: Musculoskeletal: Denies back pain Integumentary/Breasts: Skin/Breast: Denies rash Neurologic: Reports confusion, Denies vertigo, Denies dizziness, Reports frequent falls and Reports weakness Psychiatric: Psychiatric: Reports confusion PMFSH Past Medical History Medical History Morbid obesity Intentional overdose Acute bronchospasm Bipolar I disorder with depression Overdose on Tylenol Suicide attempt Asthma COPD (chronic obstructive pulmonary disease) Chronic lung disease Neoplasm of parotid gland Depression 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 Drug abuse Bipolar I disorder Post traumatic stress disorder (PTSD) Tobacco use disorder FABIOLA (obstructive sleep apnea) Borderline personality disorder Intermittent explosive disorder Asthma exacerbation in COPD Herpes Tobacco use Bipolar disorder COPD (chronic obstructive pulmonary disease) Surgical History History of ankle surgery History of back surgery Hx of cholecystectomy History of appendectomy Family History Family History Mother COPD (chronic obstructive pulmonary disease) Social History Social History Household Members: Caregiver Household Members Other:: So Housing: Apartment Housing Other:: Sleeps on the couch at [facility] house Do you presently have visiting nurse or other home services: No Unable to assess alcohol history related to: Unknown Alcohol intake: former Comment: 1:1sitter Patient Tobacco Use Status: Current everyday Tobacco user Tobacco use type: Cigarette and Smokeless Tobacco Cigarette Packs Per Day: 1 Cigarettes Per Day: 3 Years Smoked: 20 e-Cigarette/Vaping Use: Never Used Second Hand Smoke Exposure: No Substance Use Type: Crack/Cocaine Advance Directives: Yes Advance Directives on File: Yes Advance Directives Date on File: 06/17/22 Do you have a plan to hurt others: No Plan service: No Current occupational status: unemployed and disabled Sexual orientation: Straight/Heterosexual Physical Exam ED Vital Signs: Vital Signs - 24 hr 05/09/24 15:43 05/09/24 16:58 05/09/24 19:06 Temperature 98.4 F 98.1 F 97.4 F Pulse Rate 74 84 80 Respiratory Rate 15 18 22 H Blood Pressure 130/86 117/86 119/66 Pulse Oximetry 94 90 L Oxygen Delivery Method Nasal Cannula Room Air Nasal Cannula Oxygen Flow Rate 2 3 05/09/24 20:56 05/09/24 23:48 05/10/24 03:34 Temperature 98.4 F 98.7 F 98.1 F Pulse Rate 85 91 90 Respiratory Rate 20 20 20 Blood Pressure 137/76 126/70 95/51 L Pulse Oximetry 92 95 Oxygen Delivery Method Nasal Cannula Nasal Cannula Oxygen Flow Rate 3 5 05/10/24 04:12 05/10/24 06:09 05/10/24 08:30 Temperature 98.0 F 98.1 F Pulse Rate 84 77 83 Respiratory Rate 24 H 20 21 H Blood Pressure 122/68 103/52 L 106/51 L Pulse Oximetry 91 L 95 95 Oxygen Delivery Method Nasal Cannula CPAP Room Air Oxygen Flow Rate 5 05/10/24 09:01 05/10/24 09:01 05/10/24 10:10 Temperature 98.5 F Pulse Rate 82 Respiratory Rate 14 Blood Pressure 132/68 Pulse Oximetry 77 L 90 L 90 L Oxygen Delivery Method Nasal Cannula Nasal Cannula Oxygen Flow Rate 4 4.5 05/10/24 10:38 Temperature Pulse Rate 88 Respiratory Rate 25 H Blood Pressure Pulse Oximetry Oxygen Delivery Method Oxygen Flow Rate BMI result Body Mass Index 40.8 Const General: no acute distress, awake and confusion Nutritional Appearance: well nourished and obese Orientation/consciousness: oriented to person, oriented to place, No oriented to time and confusion Limitations: altered mental status HENMT Other: Thick yellowish covering of the tongue Head: Yes normocephalic and Yes atraumatic Eyes Eyelids: Yes eyelids normal Conjunctivae: conjunctivae normal Sclerae: sclerae normal Corneas: corneas normal Pupils: Equal, round and reactive pupils present EOM: EOMs intact bilaterally Neck Neck: Yes full ROM Resp Other: Diminished breath sounds but otherwise clear to auscultation Effort & Inspection: normal respiratory effort, able to speak in complete sentences and not labored Cardio Rate: regular rate Rhythm: regular rhythm GI Inspection: No distended Palpation (GI): Soft to palpation, not firm, nontender, no guarding and not rigid Skin General skin exam: elasticity normal Neuro General: oriented to person, oriented to place, No oriented to time and confusion Cranial nerves: Yes Equal, round and reactive pupils present and Yes Bilaterally intact EOM present Course Reevaluation(s) Reevaluation #1: Patient now awake, alert and oriented. She is requesting discharge home because ?I feel much better. ? Her urine was never collected to [employer] tox screen, however given the patient is back to baseline feel it is appropriate for discharge Time: 22:41 Reevaluation #2: EMS arrived, the patient is somewhat lethargic again, she is having trouble standing from a seated position. She also does not have a marshmallow runner to get home. Her vital signs are within normal limits, however I do not feel is appropriate to send the patient home at this time, we will have her see case management and social media marketing manager in the morning. Time: 01:07 Reevaluation #3: Dariana Haq PA-C @0842: Alerted by nursing staff that the patient was increasingly lethargic. SPO2 was found to be 77%. Patient was unable to answer questions appropriately or follow commands. Patient was placed on 4.5LPM of oxygen and immediately her saturation went up to 90%. Patient is normally only on 2 liters of oxygen when ambulating. IV Solu-medrol and IV ceftriaxone ordered. Patient's mental status improved greatly. Patient able to follow commands. Will admit patient for continued need for oxygenation. Patient was in physician observation before this and it was determined that she does meet criteria for hospital admission at 1045 on 05/10/2024. Total time in observation was 9 hours and 37 minutes. Time: 10:45 Medications Administered Discontinued Medications Generic Name Dose Route Start Last Admin Trade Name Freq PRN Reason Stop Dose Admin Albuterol Sulfate 5 mg/ 0 mg 05/10/24 10:32 05/10/24 10:38 Albuterol/Ipratropium 3 ml INHALE 05/10/24 10:33 7.5 each ONCE ONE Administration Ceftriaxone Sodium 1 gm/ 50 mls @ 100 mls/hr 05/10/24 08:47 05/10/24 10:23 Sodium Chloride IV 05/10/24 09:16 100 mls/hr ONCE ONE Administration Methylprednisolone Sodium Succinate 60 mg 05/10/24 10:09 05/10/24 10:19 Methylprednisolone Sod Succ 125 Mg/2 Ml Vial IVPUSH 05/10/24 10:10 60 mg ONCE ONE Administration Medical Decision Making Medical Decision Making [facility] Narrative: 54-year-old female past medical history as documented above presents for evaluation after multiple falls and altered mental status. Plan for CT scan of the brain, C-spine and facial bones. Her vital signs are currently stable, she is chronic O2 her oxygen saturation is around 90% on her home 2 L. plan for broad workup including labs, chest x-ray, VBG, drug screen, ammonia level. Unclear etiology of her altered mental status at this time but she does have a past history of substance abuse including cocaine and heroin. She denies using these today, so will await drug screen. I do not suspect TIA/CVA as the patient does not have any facial droop, dysarthria or unilateral weakness. Presentation is more consistent with substance abuse Differential Diagnosis Differential Diagnoses: The differential diagnosis associated with the presentation includes Substance abuse Cocaine abuse Opiate abuse Pneumonia Hypercapnia Syncope Intracranial hemorrhage Oral thrush Lab Data [facility] Lab Attestation statement: I reviewed the patient's lab results. Mild leukocytosis to 11.8 K. patient's hemoglobin hematocrit are elevated to 17.7 and 57.5 slightly above her baseline. This may be related to some degree of hypovolemia. Patient's chemistries show electrolytes within normal limits, CO2 is elevated to 34 but the patient is a known O2 dependent COPD patient, this is likely baseline, renal function within normal limits, troponin was elevated 22.2 and repeat troponin was also 22.2 less likely to be ischemic event. 05/09/24 16:52 05/09/24 16:53 Labs: Lab Results 05/09/24 05/09/24 05/09/24 Range/Units 16:52 16:53 16:56 WBC 11.8 H (4.8-10.8) X10*3/uL RBC 5.73 H (4.20-5.50) X10*6/uL Hgb 17.7 H (12.0-16.0) g/dl Hct 57.5 H (37.0-47.0) % MCV 100.3 H (80.0-98.0) fL MCH 30.9 (27.0-33.0) pg MCHC 30.8 L (31.0-35.0) g/dl RDW 14.0 (11.0-16.0) % Plt Count 194 (160-400) X10*3/uL MPV 10.0 (9.4-12.3) fL Immature Gran % (Auto) 0.3 (0.0-0.4) % Neut % (Auto) 78.8 H (45-73) % Lymph % (Auto) 13.3 L (20-40) % [place] % (Auto) 6.4 (2-11) % Eos % (Auto) 0.4 (0-4) % Baso % (Auto) 0.8 (0-2) % Lymph # (Auto) 1.6 (1.2-4.9) X10*3/uL [place] # (Auto) 0.8 (0.1-1.2) X10*3/uL Eos # (Auto) 0.1 (0.0-0.4) X10*3/uL Baso # (Auto) 0.1 (0.0-0.2) X10*3/uL Abs Immat Gran (auto) 0.04 H (0.00-0.03) X10*3/uL Absolute Neuts (auto) 9.3 H (2.0-8.3) x10*3/uL Absolute Nucleated RBC 0.020 H (0.0-0.012) X10*3/uL Nucleated RBC % (auto) 0.2 (0.0-0.2) /100WBC PT 12.7 (11.1-13.3) SEC INR 1.0 (0.9-1.1) VBG pH 7.37 (7.32-7.43) VBG pCO2 66 mmHg VBG pO2 52 mmHg VBG HCO3 38 H (22-26) mmol/L VBG O2 Saturation 83.0 % VBG Base Excess 9.3 mmol/L Sodium 141 (135-145) mmol/L Potassium 4.5 (3.3-5.1) mmol/L Chloride 99 (96-108) mmol/L Carbon Dioxide 34 H (22-29) mmol/L Anion Gap 13 (12-20) BUN 7 L (9-16) mg/dL Creatinine 0.73 (0.5-1.4) mg/dL Estim Creat Clear Calc 106.9 Estimated GFR > 60 Random Glucose 109 (60-115) mg/dL Lactic Acid (0.5-2.0) mmol/L Calcium 9.9 (8.4-10.2) mg/dL Magnesium 2.1 (1.6-2.6) mg/dL Total Bilirubin 0.6 (0.0-1.0) mg/dL Direct Bilirubin 0.1 (0.0-0.5) mg/dL AST 17 (5-31) U/L ALT 12 (0-31) U/L Alkaline Phosphatase 73 (39-117) U/L Ammonia 34 (13-55) umol/L Total Creatine Kinase 58 (26-140) U/L Troponin I High Sens 22.2 H D (<3.5-17.0) ng/L C-Reactive Protein 2.94 H (< or = 0.50) mg/dL Total Protein 6.7 (6.5-8.0) g/dL Albumin 4.1 (3.5-5.0) g/dL Hold Green Top Urine Color Urine Appearance Urine pH (5.0-9.0) Ur Specific [place] (1.005-1.025) Urine Protein (Neg-Trace) mg/dL Urine Glucose (UA) (Negative) mg/dL Urine Ketones (Negative) mg/dL Urine Blood (Negative) Urine Nitrite (Negative) Ur Leukocyte Esterase (Negative) Urine RBC (0-2) /HPF Urine WBC (0-5) /HPF Ur Squamous Epith Cells (0-2) /HPF Urine Bacteria (None Seen) Hyaline Casts (0-2) /LPF Salicylates < 5.0 L (15-30) mg/dL Urine Opiates Screen (Not Detect) Ur Buprenorphine Scrn (Not Detect) ng/mL Ur Oxycodone Screen (Not Detect) ng/mL Urine Methadone Screen (Not Detect) ng/mL Urine Fentanyl Screen (Not Detect) Ur Barbiturates Screen (Not Detect) Ur Phencyclidine Scrn (Not Detect) Ur Amphetamines Screen (Not Detect) U Benzodiazepines Scrn (Not Detect) [place] 1.32 H (0.60-1.20) mmol/L Urine Cocaine Screen (Not Detect) U Marijuana (THC) Screen (Not Detect) Ethyl Alcohol < 10 mg/dL Influenza Type A (PCR) NEGATIVE (Negative) Influenza Type B (PCR) NEGATIVE (Negative) RSV RNA Qual (PCR) NEGATIVE (Negative) SARS-CoV-2 RNA (RT-PCR) NEGATIVE (Negative) 05/09/24 05/10/24 05/10/24 Range/Units 20:18 09:09 09:12 WBC (4.8-10.8) X10*3/uL RBC (4.20-5.50) X10*6/uL Hgb (12.0-16.0) g/dl Hct (37.0-47.0) % MCV (80.0-98.0) fL MCH (27.0-33.0) pg MCHC (31.0-35.0) g/dl RDW (11.0-16.0) % Plt Count (160-400) X10*3/uL MPV (9.4-12.3) fL Immature Gran % (Auto) (0.0-0.4) % Neut % (Auto) (45-73) % Lymph % (Auto) (20-40) % [place] % (Auto) (2-11) % Eos % (Auto) (0-4) % Baso % (Auto) (0-2) % Lymph # (Auto) (1.2-4.9) X10*3/uL [place] # (Auto) (0.1-1.2) X10*3/uL Eos # (Auto) (0.0-0.4) X10*3/uL Baso # (Auto) (0.0-0.2) X10*3/uL Abs Immat Gran (auto) (0.00-0.03) X10*3/uL Absolute Neuts (auto) (2.0-8.3) x10*3/uL Absolute Nucleated RBC (0.0-0.012) X10*3/uL Nucleated RBC % (auto) (0.0-0.2) /100WBC PT (11.1-13.3) SEC INR (0.9-1.1) VBG pH 7.43 (7.32-7.43) VBG pCO2 51 mmHg VBG pO2 73 mmHg VBG HCO3 34 H (22-26) mmol/L VBG O2 Saturation 98.0 % VBG Base Excess 8.5 mmol/L Sodium (135-145) mmol/L Potassium (3.3-5.1) mmol/L Chloride (96-108) mmol/L Carbon Dioxide (22-29) mmol/L Anion Gap (12-20) BUN (9-16) mg/dL Creatinine (0.5-1.4) mg/dL Estim Creat Clear Calc Estimated GFR Random Glucose (60-115) mg/dL Lactic Acid 0.9 (0.5-2.0) mmol/L Calcium (8.4-10.2) mg/dL Magnesium (1.6-2.6) mg/dL Total Bilirubin (0.0-1.0) mg/dL Direct Bilirubin (0.0-0.5) mg/dL AST (5-31) U/L ALT (0-31) U/L Alkaline Phosphatase (39-117) U/L Ammonia (13-55) umol/L Total Creatine Kinase (26-140) U/L Troponin I High Sens 22.2 H (<3.5-17.0) ng/L C-Reactive Protein (< or = 0.50) mg/dL Total Protein (6.5-8.0) g/dL Albumin (3.5-5.0) g/dL Hold Green Top Urine Color Urine Appearance Urine pH (5.0-9.0) Ur Specific [place] (1.005-1.025) Urine Protein (Neg-Trace) mg/dL Urine Glucose (UA) (Negative) mg/dL Urine Ketones (Negative) mg/dL Urine Blood (Negative) Urine Nitrite (Negative) Ur Leukocyte Esterase (Negative) Urine RBC (0-2) /HPF Urine WBC (0-5) /HPF Ur Squamous Epith Cells (0-2) /HPF Urine Bacteria (None Seen) Hyaline Casts (0-2) /LPF Salicylates (15-30) mg/dL Urine Opiates Screen (Not Detect) Ur Buprenorphine Scrn (Not Detect) ng/mL Ur Oxycodone Screen (Not Detect) ng/mL Urine Methadone Screen (Not Detect) ng/mL Urine Fentanyl Screen (Not Detect) Ur Barbiturates Screen (Not Detect) Ur Phencyclidine Scrn (Not Detect) Ur Amphetamines Screen (Not Detect) U Benzodiazepines Scrn (Not Detect) [place] (0.60-1.20) mmol/L Urine Cocaine Screen (Not Detect) U Marijuana (THC) Screen (Not Detect) Ethyl Alcohol mg/dL Influenza Type A (PCR) (Negative) Influenza Type B (PCR) (Negative) RSV RNA Qual (PCR) (Negative) SARS-CoV-2 RNA (RT-PCR) (Negative) 05/10/24 05/10/24 Range/Units 09:40 09:53 WBC (4.8-10.8) X10*3/uL RBC (4.20-5.50) X10*6/uL Hgb (12.0-16.0) g/dl Hct (37.0-47.0) % MCV (80.0-98.0) fL MCH (27.0-33.0) pg MCHC (31.0-35.0) g/dl RDW (11.0-16.0) % Plt Count (160-400) X10*3/uL MPV (9.4-12.3) fL Immature Gran % (Auto) (0.0-0.4) % Neut % (Auto) (45-73) % Lymph % (Auto) (20-40) % [place] % (Auto) (2-11) % Eos % (Auto) (0-4) % Baso % (Auto) (0-2) % Lymph # (Auto) (1.2-4.9) X10*3/uL [place] # (Auto) (0.1-1.2) X10*3/uL Eos # (Auto) (0.0-0.4) X10*3/uL Baso # (Auto) (0.0-0.2) X10*3/uL Abs Immat Gran (auto) (0.00-0.03) X10*3/uL Absolute Neuts (auto) (2.0-8.3) x10*3/uL Absolute Nucleated RBC (0.0-0.012) X10*3/uL Nucleated RBC % (auto) (0.0-0.2) /100WBC PT (11.1-13.3) SEC INR (0.9-1.1) VBG pH (7.32-7.43) VBG pCO2 mmHg VBG pO2 mmHg VBG HCO3 (22-26) mmol/L VBG O2 Saturation % VBG Base Excess mmol/L Sodium (135-145) mmol/L Potassium (3.3-5.1) mmol/L Chloride (96-108) mmol/L Carbon Dioxide (22-29) mmol/L Anion Gap (12-20) BUN (9-16) mg/dL Creatinine (0.5-1.4) mg/dL Estim Creat Clear Calc Estimated GFR Random Glucose (60-115) mg/dL Lactic Acid (0.5-2.0) mmol/L Calcium (8.4-10.2) mg/dL Magnesium (1.6-2.6) mg/dL Total Bilirubin (0.0-1.0) mg/dL Direct Bilirubin (0.0-0.5) mg/dL AST (5-31) U/L ALT (0-31) U/L Alkaline Phosphatase (39-117) U/L Ammonia (13-55) umol/L Total Creatine Kinase (26-140) U/L Troponin I High Sens (<3.5-17.0) ng/L C-Reactive Protein (< or = 0.50) mg/dL Total Protein (6.5-8.0) g/dL Albumin (3.5-5.0) g/dL Hold Green Top See Note Urine Color Dark Yellow Urine Appearance Clear Urine pH 6.5 (5.0-9.0) Ur Specific [place] 1.020 (1.005-1.025) Urine Protein Trace (Neg-Trace) mg/dL Urine Glucose (UA) Negative (Negative) mg/dL Urine Ketones Trace (Negative) mg/dL Urine Blood Negative (Negative) Urine Nitrite Negative (Negative) Ur Leukocyte Esterase Trace H (Negative) Urine RBC 0-2 (0-2) /HPF Urine WBC 0-5 (0-5) /HPF Ur Squamous Epith Cells 0-2 (0-2) /HPF Urine Bacteria None Seen (None Seen) Hyaline Casts 0-2 (0-2) /LPF Salicylates (15-30) mg/dL Urine Opiates Screen Not Detected (Not Detect) Ur Buprenorphine Scrn Not Detected (Not Detect) ng/mL Ur Oxycodone Screen Not Detected (Not Detect) ng/mL Urine Methadone Screen Not Detected (Not Detect) ng/mL Urine Fentanyl Screen Not Detected (Not Detect) Ur Barbiturates Screen Not Detected (Not Detect) Ur Phencyclidine Scrn Not Detected (Not Detect) Ur Amphetamines Screen Not Detected (Not Detect) U Benzodiazepines Scrn Not Detected (Not Detect) [place] (0.60-1.20) mmol/L Urine Cocaine Screen POSITIVE H (Not Detect) U Marijuana (THC) Screen Not Detected (Not Detect) Ethyl Alcohol mg/dL Influenza Type A (PCR) (Negative) Influenza Type B (PCR) (Negative) RSV RNA Qual (PCR) (Negative) SARS-CoV-2 RNA (RT-PCR) (Negative) Discharge Plan Discharge Clinical Impression: Hypoxia, AMS (altered mental status), Asthma Patient Disposition: Admitted As Inpatient Print Language: Ukrainian
[2024-05-09 17:03] LABS: Basophils Absolute Auto 0.1 X10*3/uL (0.0-0.2); Basophils Percent Auto 0.8 % (0-2); Eosinophils Absolute Auto 0.1 X10*3/uL (0.0-0.4); Eosinophils Percent Auto 0.4 % (0-4); Hemoglobin 17.7 g/dl (12.0-16.0); Imm Gran Abs Auto 0.04 X10*3/uL (0.00-0.03); Imm Gran Pct Auto 0.3 % (0.0-0.4); Lymphocytes Absolute Auto 1.6 X10*3/uL (1.2-4.9); Lymphocytes Percent Auto 13.3 % (20-40); Mean Corpuscular HGB Conc 30.8 g/dl (31.0-35.0); Mean Corpuscular Hemoglobin 30.9 pg (27.0-33.0); Mean Corpuscular Volume 100.3 fL (80.0-98.0); Monocytes Absolute Auto 0.8 X10*3/uL (0.1-1.2); Monocytes Percent Auto 6.4 % (2-11); NRBC Pct Auto 0.2 /100WBC (0.0-0.2); Neutrophils Absolute Auto 9.3 x10*3/uL (2.0-8.3); Neutrophils Percent Auto 78.8 % (45-73); Platelet Count 194 X10*3/uL (160-400); Red Blood Count 5.73 X10*6/uL (4.20-5.50); White Blood Count 11.8 X10*3/uL (4.8-10.8)
[2024-05-09 17:04] LABS: VBG Base Excess 9.3 mmol/L; VBG HCO3 38 mmol/L (22-26); VBG pCO2 66 mmHg; VBG pH 7.37 (7.32-7.43); VBG pO2 52 mmHg
[2024-05-09 17:06] LABS: Hematocrit 57.5 % (37.0-47.0)
[2024-05-09 17:13] LABS: Venous Blood Gas Refer to POC result
[2024-05-09 17:14] LABS: Prothrombin Time 12.7 SEC (11.1-13.3)
[2024-05-09 17:15] LABS: Ammonia 34 umol/L (13-55)
[2024-05-09 17:22] LABS: Lithium 1.32 mmol/L (0.60-1.20)
[2024-05-09 17:23] LABS: Salicylate < 5.0 mg/dL (15-30)
[2024-05-09 17:31] LABS: Troponin-I High Sensitivity 22.2 ng/L (<3.5-17.0)
[2024-05-09 17:32] LABS: Alanine Aminotransferase 12 U/L (0-31); Albumin Level 4.1 g/dL (3.5-5.0); Alkaline Phosphatase 73 U/L (39-117); Anion Gap 13 (12-20); Aspartate Amino Transferase 17 U/L (5-31); Bilirubin Direct 0.1 mg/dL (0.0-0.5); Bilirubin Total 0.6 mg/dL (0.0-1.0); Blood Urea Nitrogen 7 mg/dL (9-16); C Reactive Protein 2.94 mg/dL (< or = 0.50); Calcium 9.9 mg/dL (8.4-10.2); Carbon Dioxide 34 mmol/L (22-29); Chloride 99 mmol/L (96-108); Creatinine Clr Calc Pharmacy 106.9; Estimated Glomerular Filt Rate > 60; Glucose Random 109 mg/dL (60-115); Magnesium 2.1 mg/dL (1.6-2.6); Potassium 4.5 mmol/L (3.3-5.1); Sodium 141 mmol/L (135-145); Total Protein 6.7 g/dL (6.5-8.0)
[2024-05-09 17:44] LABS: Influenza A PCR NEGATIVE (Negative); Influenza B PCR NEGATIVE (Negative); Resp Syncy Virus RNA Qual PCR NEGATIVE (Negative); SARS COV2 PCR INHOUSE NEGATIVE (Negative)
[2024-05-09 19:06] VITALS: BP 119/66; PULSE 80; RESP 22; TEMP 36.3
[2024-05-09 20:27] LABS: Ethanol < 10 mg/dL
[2024-05-09 20:48] LABS: Troponin-I High Sensitivity 22.2 ng/L (<3.5-17.0)
[2024-05-09 20:56] VITALS: BP 137/76; PULSE 85; RESP 20; TEMP 36.9; O2SAT 92
--- NOTE | 2024-05-09 23:47 | MHC.EDTECH ---
This US called [facility] @[phone] to book transport back home [address] ETA - [phone]
[2024-05-09 23:48] VITALS: BP 126/70; PULSE 91; RESP 20; TEMP 37.1
[2024-05-10] VITALS (15 sets, daily range): BP systolic 95–148; BP diastolic 51–96; PULSE 77–92; RESP 14–30; TEMP 36.4–37.3; O2SAT 77–95
--- NOTE | 2024-05-10 | ECG_ITS ---
Test Reason : chest pain Blood Pressure : / mmHG Vent. Rate : 089 BPM Atrial Rate : 089 BPM P-R Int : 150 ms QRS Dur : 086 ms QT Int : 368 ms P-R-T Axes : 057 048 061 degrees QTc Int : 447 ms Normal sinus rhythm Nonspecific ST and T wave abnormality Abnormal ECG When compared with ECG of 09-MAY-2024 15:59, No significant change was found Referred By: Chaya Fierro Electronically Signed By:Deangelo Gutierres
--- NOTE | 2024-05-10 00:30 | PC.NURSE ---
Spoke with the provider- stated patient was able to go to overflow to await for case management assessment in am
--- NOTE | 2024-05-10 02:53 | PC.NURSE ---
Pt arrived to overflow from main ED @ 0243 hours by ORTHOTIC/PROSTHETIC CLINICIAN. Pt was moved from stretcher to bed with assist of 3. Skin is warm, pink, and dry. Pt is difficulty to arouse, and responding painful stimuli only. VS obtained upon arrival, BP 102/57, 82, 14, 79% on 2 LPM. Charge made of aware of pt's mental status and vital signs. Oxygen increased to 4 LPM via Nc with minimal improvement in SPO2, increased to 88%. Verbal report obtained from transferring RN. Pt presented to the ED today coming from home after multiple falls. Per report, pt has a history of cocaine use, and just recently started using heroine. Repeat VS BP 94/62, 88, 14, 88% on 4 LPM via NC. Charge notified of repeat VS and pt was transferred back to main ED.
--- NOTE | 2024-05-10 05:08 | PC.NURSE ---
pt awake, trying to get out of bed, falling forward. staff at bedside, assist back into bed. CPAP on 5L 93%
--- NOTE | 2024-05-10 06:51 | PC.NURSE ---
pt refusing straight cath, pt fighting staff. multiple attempts by different RNs
--- NOTE | 2024-05-10 08:16 | PC.NURSE ---
this RN resumed care of pt at 0645. pt remains difficult to arouse. responsive to physical stimuli. pt has eyes closed/unable to speak clearly. not able to follow commands appropriately. pt had a large liquid BM - pericare performed. new bedding/pads applied. repositioned to comfort. no sob/wob noted. respirations even/u/unlabored. resting in no apparent distress. pt waiting to be seen by CM at this time. plan of care ongoing. call castillo placed within reach.
--- NOTE | 2024-05-10 08:37 | MHC.CM.ED ---
Addendum entered by Kelly Soto 05/10/24 12:08: Received notification from Dariana GALLEGO that patient will be admitted to hospital. Original Note: Received case management consult overnight. Patient currently lethargic and on 5LNC. Dariana GALLEGO made aware. Continue to monitor for d/c needs.
--- NOTE | 2024-05-10 09:03 | PC.NURSE ---
pt remains lethargic at this time. pt noted to be at 77% on RA - placed on 4L via NC w/ good effect - now resting at 92%. RT/provider bedside/aware.no sob/wob noted. respirations even/unlabored. productive cough noted. plan of care ongoing.
[2024-05-10 09:25] LABS: Lactic Acid 0.9 mmol/L (0.5-2.0)
[2024-05-10 09:28] LABS: VBG Base Excess 8.5 mmol/L; VBG HCO3 34 mmol/L (22-26); VBG pCO2 51 mmHg; VBG pH 7.43 (7.32-7.43); VBG pO2 73 mmHg
[2024-05-10 09:29] LABS: Venous Blood Gas Refer to POC result
--- NOTE | 2024-05-10 09:42 | PC.NURSE ---
multiple attempts made at obtaining IV access but unsuccessful. US guided IV placed by MELONY Dolan at this time in the LUE. patent/intact. labs obtained/sent to lab. pt remains at 90% on 4L via NC. respirations remain even/unlabored. plan of care ongoing. call castillo placed within reach.
--- NOTE | 2024-05-10 09:51 | PC.NURSE ---
straight catheterization performed. 300ml of dark yellow urine noted immediately post output. pt tolerated well. UA obtained/sent to lab.
[2024-05-10 10:04] LABS: Appearance Urine Clear; Color Urine Dark Yellow; Glucose Urine UA Negative (Negative); Leukocyte Esterase Urine Trace (Negative); Nitrite Urine Negative (Negative); PH 6.5 (5.0-9.0); UMIC TRIGGER UACC YES; Urine Blood Negative (Negative); Urine Ketones Trace mg/dL (Negative); Urine Protein Trace mg/dL (Neg-Trace)
[2024-05-10 10:09] LABS: Amphetamine Screen Urine Not Detected (Not Detect); Barbiturates, Urine Not Detected (Not Detect); Benzodiazepines Screen Urine Not Detected (Not Detect); Buprenorphine Scr Not Detected (Not Detect); Cannabinoid Screen Urine Not Detected (Not Detect); Cocaine Screen Urine POSITIVE (Not Detect); Fentanyl, urine Not Detected (Not Detect); Methadone Screen, Urine Not Detected (Not Detect); Opiate Screen Urine Not Detected (Not Detect); Oxycodone Screen Urine Not Detected (Not Detect); Phencyclidine Screen Urine Not Detected (Not Detect)
[2024-05-10 10:11] LABS: Bacteria Urine None Seen (None Seen); Hyaline Casts Urine 0-2 /LPF (0-2); RBC Urine 0-2 /HPF (0-2); Squamous Epithelial Cell Urine 0-2 /HPF (0-2); WBC Urine 0-5 /HPF (0-5)
[2024-05-10] MEDS: methylPREDNISolone Sod Succ 125 MG/2 ML VIAL 60 MG IVPUSH (10:19)
[2024-05-10] MEDS: cefTRIAXone sodium 1 GM in 0.9 % Sodium Chloride 50 ML IV (10:23)
--- NOTE | 2024-05-10 10:33 | PC.NURSE ---
delay in abx administration d/t not being able to obtain 2nd set of cultures. abx now administered per provider order.
--- NOTE | 2024-05-10 10:36 | PC.NURSE ---
pt receiving breathing treatment via RT at this time.
[2024-05-10] MEDS: Albuterol Sulfate 5 MG, Albuterol/Iprat 2.5/0.5MG 3 ML 3 ML INHALE (10:38)
--- NOTE | 2024-05-10 11:33 | PM.IMHP ---
History of Present Illness Date of Service: 05/10/24 Chief Complaint: Altered mentation, dyspnea This is a 54-year-old female with pertinent history of chronic hypoxemic respiratory failure due to COPD/asthma overlap syndrome on 2 L supplemental oxygen while ambulation, fibromyalgia, osteoarthritis, PE on Eliquis, polysubstance use disorder, borderline personality disorder, bipolar disorder who presented to the emergency department for evaluation of dyspnea and altered mentation. Patient was initially seen in the ER for altered mentation. CT head without any acute abnormality. UA without concerning for UTI. Electrolytes within normal limits. Patient was found to be hypoxic satting 77% on her home O2. She was also found to be wheezing. Patient denies cough. No fever, chills, chest discomfort, palpitations, abdominal pain, changes in urinary or bowel habits. In the emergency department, patient was initiated on IV steroids Review of Systems Review of Systems: Yes Unobtainable due to mental condition PMFSH Medical History Morbid obesity Intentional overdose Acute bronchospasm Bipolar I disorder with depression Overdose on Tylenol Suicide attempt Asthma COPD (chronic obstructive pulmonary disease) Chronic lung disease Neoplasm of parotid gland Depression 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 Drug abuse Bipolar I disorder Post traumatic stress disorder (PTSD) Tobacco use disorder FABIOLA (obstructive sleep apnea) Borderline personality disorder Intermittent explosive disorder Asthma exacerbation in COPD Herpes Tobacco use Bipolar disorder COPD (chronic obstructive pulmonary disease) Family History Mother COPD (chronic obstructive pulmonary disease) Surgical History History of ankle surgery History of back surgery Hx of cholecystectomy History of appendectomy Social History Household Members: Caregiver Household Members Other:: So Housing: Apartment Housing Other:: Sleeps on the couch at [facility] house Do you presently have visiting nurse or other home services: No Unable to assess alcohol history related to: Unknown Alcohol intake: former Comment: 1:1sitter Patient Tobacco Use Status: Current everyday Tobacco user Tobacco use type: Cigarette and Smokeless Tobacco Cigarette Packs Per Day: 1 Cigarettes Per Day: 3 Years Smoked: 20 e-Cigarette/Vaping Use: Never Used Second Hand Smoke Exposure: No Substance Use Type: Crack/Cocaine Advance Directives: Yes Advance Directives on File: Yes Advance Directives Date on File: 06/17/22 Do you have a plan to hurt others: No Plan service: No Current occupational status: unemployed and disabled Sexual orientation: Straight/Heterosexual Meds Allergies Allergy/AdvReac Type Severity Reaction Status Date / Time aspirin Allergy Mild Anaphylaxis Verified 05/09/24 15:46 ampicillin Allergy Rash Verified 05/09/24 15:46 Penicillins Allergy Anaphylaxis Verified 05/09/24 15:46 latex AdvReac Rash Verified 05/09/24 15:46 Latex, Natural Rubber AdvReac Rash Verified 05/09/24 15:46 seafood AdvReac Anaphylaxis Verified 05/09/24 15:46 Sulfa (Sulfonamide AdvReac Hives Verified 05/09/24 15:46 Antibiotics) Home Medications ?Medication ?Instructions ?Recorded ?Confirmed ?Last Taken ?Type lithium carbonate 450 mg 450 mg PO TID 05/14/23 03/17/24 03/16/24 History tablet,extended release cyanocobalamin (vitamin B-12) 1,000 mcg PO DAILY 06/11/23 03/17/24 03/16/24 History 1,000 mcg tablet (Vitamin B-12) ipratropium 0.5 mg-albuterol 3 mg 3 ml inhalation RQ6H PRN Shortness 06/11/23 03/17/24 10/23/23 History (2.5 mg base)/3 mL nebulization Of Breath Or Wheezing soln cetirizine 10 mg tablet 10 mg PO DAILY PRN Allergy Symptoms 12/19/23 03/17/24 Unknown History melatonin 3 mg tablet 3 mg PO BEDTIME 12/19/23 03/17/24 03/16/24 History valacyclovir 500 mg tablet 500 mg PO DAILY 12/19/23 03/17/24 03/16/24 History omeprazole 20 mg capsule,delayed 20 mg PO DAILY@0630 12/29/23 03/17/24 03/16/24 History release apixaban 5 mg tablet (Eliquis) 5 mg PO BID 02/20/24 03/17/24 03/16/24 History cholecalciferol (vitamin D3) 25 25 mcg PO DAILY 02/20/24 03/17/2424 History mcg (1,000 unit) tablet (Vitamin D3) gabapentin 300 mg capsule 300 mg PO TID 02/20/24 03/17/24 03/16/24 History gabapentin 300 mg capsule 300 mg PO DAILY PRN breakthrough 03/17/24 03/17/24 Unknown History neuropathy Physical Exam Vital Signs and Narrative: Vital Signs: Last Vital Signs Temp 98.5 F 05/10/24 10:10 Pulse 88 05/10/24 10:38 Resp 25 H 05/10/24 10:38 BP 132/68 05/10/24 10:10 Pulse Ox 90 L 05/10/24 10:10 O2 Del Method Nasal Cannula 05/10/24 10:10 O2 Flow Rate 4.5 05/10/24 10:10 Oxygen Flow Rate 2 05/09/24 15:43 BMI result Body Mass Index 40.8 Middle-aged female lying in bed in mild distress on supplemental oxygen Neck supple, no JVD Regular rate and rhythm, S1-S2 heard Bilateral expiratory wheezing appreciated Abdomen soft nontender, no guarding, no rigidity Patient is awake, alert and oriented to self, place, disoriented to time and person ; no focal motor deficit Psych: Normal mood Results Labs 05/09/24 16:52 05/09/24 16:53 Labs: Laboratory Results - last 24 hr 05/09/24 05/09/24 05/09/24 16:52 16:53 16:56 MCV 100.3 H MCH 30.9 MCHC 30.8 L RDW 14.0 Plt Count 194 MPV 10.0 Immature Gran % (Auto) 0.3 Neut % (Auto) 78.8 H Lymph % (Auto) 13.3 L [place] % (Auto) 6.4 Eos % (Auto) 0.4 Baso % (Auto) 0.8 Lymph # (Auto) 1.6 [place] # (Auto) 0.8 Eos # (Auto) 0.1 Baso # (Auto) 0.1 Abs Immat Gran (auto) 0.04 H Absolute Neuts (auto) 9.3 H Absolute Nucleated RBC 0.020 H Nucleated RBC % (auto) 0.2 PT 12.7 INR 1.0 VBG pH 7.37 VBG pCO2 66 VBG pO2 52 VBG HCO3 38 H VBG O2 Saturation 83.0 VBG Base Excess 9.3 Anion Gap 13 Estim Creat Clear Calc 106.9 Estimated GFR > 60 Random Glucose 109 Lactic Acid Calcium 9.9 Magnesium 2.1 Total Bilirubin 0.6 Direct Bilirubin 0.1 AST 17 ALT 12 Alkaline Phosphatase 73 Ammonia 34 Total Creatine Kinase 58 Troponin I High Sens 22.2 H D C-Reactive Protein 2.94 H Total Protein 6.7 Albumin 4.1 Hold Green Top Urine Color Urine Appearance Urine pH Ur Specific [place] Urine Protein Urine Glucose (UA) Urine Ketones Urine Blood Urine Nitrite Ur Leukocyte Esterase Urine RBC Urine WBC Ur Squamous Epith Cells Urine Bacteria Hyaline Casts Salicylates < 5.0 L Urine Opiates Screen Ur Buprenorphine Scrn Ur Oxycodone Screen Urine Methadone Screen Urine Fentanyl Screen Ur Barbiturates Screen Ur Phencyclidine Scrn Ur Amphetamines Screen U Benzodiazepines Scrn [employer] [place] 1.32 H Urine Cocaine Screen U Marijuana (THC) Screen Ethyl Alcohol < 10 Influenza Type A (PCR) NEGATIVE Influenza Type B (PCR) NEGATIVE RSV RNA Qual (PCR) NEGATIVE SARS-CoV-2 RNA (RT-PCR) NEGATIVE 05/09/24 05/10/24 05/10/24 20:18 09:09 09:12 MCV MCH MCHC RDW Plt Count MPV Immature Gran % (Auto) Neut % (Auto) Lymph % (Auto) [place] % (Auto) Eos % (Auto) Baso % (Auto) Lymph # (Auto) [place] # (Auto) Eos # (Auto) Baso # (Auto) Abs Immat Gran (auto) Absolute Neuts (auto) Absolute Nucleated RBC Nucleated RBC % (auto) PT INR VBG pH 7.43 VBG pCO2 51 VBG pO2 73 VBG HCO3 34 H VBG O2 Saturation 98.0 VBG Base Excess 8.5 Anion Gap Estim Creat Clear Calc Estimated GFR Random Glucose Lactic Acid 0.9 Calcium Magnesium Total Bilirubin Direct Bilirubin AST ALT Alkaline Phosphatase Ammonia Total Creatine Kinase Troponin I High Sens 22.2 H C-Reactive Protein Total Protein Albumin Hold Green Top Urine Color Urine Appearance Urine pH Ur Specific [place] Urine Protein Urine Glucose (UA) Urine Ketones Urine Blood Urine Nitrite Ur Leukocyte Esterase Urine RBC Urine WBC Ur Squamous Epith Cells Urine Bacteria Hyaline Casts Salicylates Urine Opiates Screen Ur Buprenorphine Scrn Ur Oxycodone Screen Urine Methadone Screen Urine Fentanyl Screen Ur Barbiturates Screen Ur Phencyclidine Scrn Ur Amphetamines Screen U Benzodiazepines Scrn [employer] [place] Urine Cocaine Screen U Marijuana (THC) Screen Ethyl Alcohol Influenza Type A (PCR) Influenza Type B (PCR) RSV RNA Qual (PCR) SARS-CoV-2 RNA (RT-PCR) 05/10/24 05/10/24 09:40 09:53 MCV MCH MCHC RDW Plt Count MPV Immature Gran % (Auto) Neut % (Auto) Lymph % (Auto) [place] % (Auto) Eos % (Auto) Baso % (Auto) Lymph # (Auto) [place] # (Auto) Eos # (Auto) Baso # (Auto) Abs Immat Gran (auto) Absolute Neuts (auto) Absolute Nucleated RBC Nucleated RBC % (auto) PT INR VBG pH VBG pCO2 VBG pO2 VBG HCO3 VBG O2 Saturation VBG Base Excess Anion Gap Estim Creat Clear Calc Estimated GFR Random Glucose Lactic Acid Calcium Magnesium Total Bilirubin Direct Bilirubin AST ALT Alkaline Phosphatase Ammonia Total Creatine Kinase Troponin I High Sens C-Reactive Protein Total Protein Albumin Hold Green Top See Note Urine Color Dark Yellow Urine Appearance Clear Urine pH 6.5 Ur Specific [place] 1.020 Urine Protein Trace Urine Glucose (UA) Negative Urine Ketones Trace Urine Blood Negative Urine Nitrite Negative Ur Leukocyte Esterase Trace H Urine RBC 0-2 Urine WBC 0-5 Ur Squamous Epith Cells 0-2 Urine Bacteria None Seen Hyaline Casts 0-2 Salicylates Urine Opiates Screen Not Detected Ur Buprenorphine Scrn Not Detected Ur Oxycodone Screen Not Detected Urine Methadone Screen Not Detected Urine Fentanyl Screen Not Detected Ur Barbiturates Screen Not Detected Ur Phencyclidine Scrn Not Detected Ur Amphetamines Screen Not Detected U Benzodiazepines Scrn Not Detected [place] Urine Cocaine Screen POSITIVE H U Marijuana (THC) Screen Not Detected Ethyl Alcohol Influenza Type A (PCR) Influenza Type B (PCR) RSV RNA Qual (PCR) SARS-CoV-2 RNA (RT-PCR) Imaging Radiologist's Impressions: Impressions Cervical Spine CT 05/09/24 16:16 IMPRESSION: * No intracranial hemorrhage or other acute acute intracranial pathology. * No fracture or malalignment in the cervical spine. Chest CT 05/09/24 16:16 IMPRESSION: * Large body habitus. * Lungs have mosaic attenuation and bronchial mcfarlane are diffusely thickened as may be seen in the setting of asthma or bronchitis. Scattered mild hazy, streaky opacities of atelectasis but no lobar consolidation or pleural effusion. * Pulmonary artery trunk is mildly enlarged; this could be a manifestation of pulmonary arterial hypertension. Head CT 05/09/24 16:16 IMPRESSION: * No intracranial hemorrhage or other acute acute intracranial pathology. * No fracture or malalignment in the cervical spine. Assessment and Plan (1) AMS (altered mental status): Status: Acute (2) Hypoxia: Status: Acute (3) COPD exacerbation: Status: Acute Plan This is a 54-year-old female with pertinent history of chronic hypoxemic respiratory failure due to COPD/asthma overlap syndrome on 2 L supplemental oxygen while ambulation, fibromyalgia, osteoarthritis, PE on Eliquis, polysubstance use disorder, borderline personality disorder, bipolar disorder who presented to the emergency department for evaluation of dyspnea and altered mentation. #. Acute on chronic hypoxemic respiratory failure due to acute exacerbation of COPD/asthma: Will admit patient with supplemental oxygen. Initiating IV steroids. Scheduled and p.r.n. DuoNebs. Continue home inhaler #. Acute metabolic encephalopathy in the setting of hypoxia #. FABIOLA: Noncompliant with CPAP at home. Initiate CPAP while in the hospital #. Tobacco use disorder: Ordered nicotine patch while in the hospital. Counseled regarding cessation #. Mood disorder: Continue home mood stabilizers #. Obesity: Counseled regarding diet and exercise #. Polysubstance use disorder: UDS positive for cocaine. Consulting Addiction Team #. PE on Eliquis DVT prophylaxis: Eliquis Full code Admit as inpatient and will require two night minimum hospital stay for supplemental oxygen, IV steroids, monitoring of respiratory status (as above), which is not possible in a lesser acute setting. Quality Stroke Does the patient have a stroke diagnosis?: No VTE Prior VTE?: No VTE Risk Level:: Medical - moderate - high VTE Device Contraindication: Treatment Not Indicated VTE Drug Contraindication: N/A - Med Ordered
[2024-05-10] MEDS: Nicotine 14 MG PATCH.TD24 TRANSDERMA (12:18)
[2024-05-10] MEDS: 0.9 % Sodium Chloride 500 ML IV (12:20)
--- NOTE | 2024-05-10 12:23 | PC.NURSE ---
IVF infusing per provider order. nicotine patch applied to right shoulder.pt remains sleepy at this time despite previous interventions/remaining on 5L via NC. PO mediation not administered at this time d/t potential aspiration risk. provider notified/aware of this RN's decision. plan of care ongoing.
--- NOTE | 2024-05-10 14:51 | PHA.MEDREC ---
Pharmacy Consult ? Medication Reconciliation Pharmacy has completed the medication reconciliation. Confirmed med rec after a little struggle. Called healthcare proxy Samson and he is not sure what she is taking or how she takes her meds because the patient wont give him her medication list due to her having people come give her meds to her . When I asked more on this he disregarded it and talked about how the service and care the patient is receiving is not up to his standards. I then called [facility] and found out she is currently filling there and they confirmed the medications she was on. I inquired about Eliquis since it was on her list and Mina stated that she has not filled that since 11l and that was for a 25 day supply and her doctor never renewed for it. I attempted to talk to the patient to see if she might be of help but after anything I said she kept saying I think so and did not seem all there so I took Eliquis off her chart since Mina confirmed her last fill was 02/09/24.
[2024-05-10] MEDS: Fluconazole in NaCl,Iso-Osm 200 MG/100 ML PIGGYBACK 100 MG IV (15:23)
--- NOTE | 2024-05-10 15:27 | PC.NURSE ---
pt remains on 5L via NC - pt sitting upright/eating lunch tray at this time. pt seemingly more awake. follows commands appropriately but still remains seemingly confused as she continues to speak incomprehensibly. medication administered per provider order. no sob/wob noted. respirations remain even/unlabored. plan of care ongoing. call castillo placed within reach.
[2024-05-10] MEDS: Albuterol/Iprat 2.5/0.5MG 3 ML AMPUL.NEB INHALE ×2 (16:06→21:13)
[2024-05-10] MEDS: Lithium Carbonate ER 450 MG TABLET.ER PO ×2 (17:00→21:57)
--- NOTE | 2024-05-10 17:27 | PC.NURSE ---
pt medicated per provider order. pt swallowed pills whole w/ water and without difficulty. pt remains on 5L via NC.
--- NOTE | 2024-05-10 19:59 | PC.NURSE ---
pt removed NC and was alert but confused. skin pwd. even with improved SaO2 is oriented to person only and unable to follow commands or conversation. fito noted on tongue
[2024-05-10] MEDS: methylPREDNISolone Sod Succ 40 MG/ML VIAL IVPUSH (21:55)
[2024-05-10] MEDS: Apixaban 5 MG TABLET PO (21:56)
[2024-05-10] MEDS: Melatonin 3 MG TABLET PO (21:57)
[2024-05-10] MEDS: OLANZapine 10 MG TABLET PO (21:57)
[2024-05-10] MEDS: rOPINIRole HCL 1 MG TABLET PO (21:57)
[2024-05-10] MEDS: Melatonin 3 MG TABLET 6 MG PO (23:49)
[2024-05-10] MEDS: Acetaminophen 325 MG TABLET 650 MG PO (23:49)
[2024-05-10] MEDS: 0.9 % Sodium Chloride Flush 3 ML SYRINGE IVFLUSH (23:49)
[2024-05-11] VITALS (10 sets, daily range): BP systolic 121–139; BP diastolic 59–86; PULSE 69–91; RESP 18–25; TEMP 36.1–36.4; O2SAT 92–98
[2024-05-11 06:23] LABS: Basophils Percent Auto 0.3 % (0-2); Hematocrit 51.5 % (37.0-47.0); Hemoglobin 15.9 g/dl (12.0-16.0); Imm Gran Abs Auto 0.04 X10*3/uL (0.00-0.03); Imm Gran Pct Auto 0.4 % (0.0-0.4); Lymphocytes Absolute Auto 0.7 X10*3/uL (1.2-4.9); Lymphocytes Percent Auto 6.9 % (20-40); MANUAL DIFF FLAG SCAN; Mean Corpuscular HGB Conc 30.9 g/dl (31.0-35.0); Mean Corpuscular Hemoglobin 30.9 pg (27.0-33.0); Mean Platelet Volume 10.3 fL (9.4-12.3); Monocytes Absolute Auto 0.1 X10*3/uL (0.1-1.2); Monocytes Percent Auto 1.3 % (2-11); Neutrophils Absolute Auto 8.8 x10*3/uL (2.0-8.3); Neutrophils Percent Auto 91.1 % (45-73); Platelet Count 192 X10*3/uL (160-400); Red Blood Count 5.15 X10*6/uL (4.20-5.50); Red Cell Distribution Width 13.5 % (11.0-16.0); SCAN SMEAR FLAG 1; White Blood Count 9.7 X10*3/uL (4.8-10.8)
[2024-05-11 06:44] LABS: Anion Gap 11 (12-20); Blood Urea Nitrogen 8 mg/dL (9-16); Calcium 9.9 mg/dL (8.4-10.2); Carbon Dioxide 33 mmol/L (22-29); Chloride 101 mmol/L (96-108); Creatinine Clr Calc Pharmacy 141.9; Estimated Glomerular Filt Rate > 60; Glucose Random 128 mg/dL (60-115); Potassium 4.5 mmol/L (3.3-5.1); Sodium 140 mmol/L (135-145)
[2024-05-11 06:50] LABS: SLIDE REVIEW VERIFIED
[2024-05-11] MEDS: Albuterol/Iprat 2.5/0.5MG 3 ML AMPUL.NEB INHALE ×4 (08:10→19:35)
--- NOTE | 2024-05-11 08:42 | PC.NURSE ---
Pt refusing fall risk interventions.
--- NOTE | 2024-05-11 08:57 | P.PNIM_ITS ---
Subjective Subjective Date of Service: 05/11/24 Interval History: No significant nursing events overnight. Mentation improved. Patient continues to be wheezy Cardiovascular Cardiovascular: Reports dyspnea on exertion Respiratory Respiratory: Reports dyspnea on exertion and Reports wheezing Allergic/Immunologic Allergic/Immunologic: Reports wheezing Physical Exam 2 Vital Signs: Vital Signs: Last Vital Signs Temp 97.0 F 05/11/24 07:36 Pulse 80 05/11/24 08:12 Resp 18 05/11/24 08:12 BP 121/59 L 05/11/24 07:36 Pulse Ox 93 05/11/24 07:36 O2 Del Method Nasal Cannula 05/11/24 07:36 O2 Flow Rate 5.0 05/11/24 07:36 Oxygen Flow Rate 2 05/09/24 15:43 BMI result Body Mass Index 40.8 Middle-aged female lying in bed in mild distress on supplemental oxygen Neck supple, no JVD Regular rate and rhythm, S1-S2 heard Bilateral expiratory wheezing appreciated Abdomen soft nontender, no guarding, no rigidity Patient is awake, alert and oriented to self, place and person ; no focal motor deficit Psych: Normal mood Objective Data Active Medications Acetaminophen (Acetaminophen 325 Mg Tablet) 650 mg PO Q6H PRN PRN Reason: Pain, Mild (Pain Scale 1-3), fever or headache Last Admin: 05/10/24 23:49 Dose: 650 mg Documented By: AGUEDA Albuterol/Ipratropium (Albuterol/Iprat 2.5/0.5mg 3 Ml Ampul.Neb) 3 ml INHALE RQ4H WHILE AWAKE [facility] Last Admin: 05/11/24 08:10 Dose: 3 ml Documented By: ANNA Albuterol/Ipratropium (Albuterol/Iprat 2.5/0.5mg 3 Ml Ampul.Neb) 3 ml INHALE Q4H PRN PRN Reason: Wheezing Albuterol/Ipratropium (Albuterol/Iprat 2.5/0.5mg 3 Ml Ampul.Neb) 3 ml INHALE RQ6H PRN PRN Reason: Shortness Of Breath Or Wheezing Apixaban (Apixaban 5 Mg Tablet) 5 mg PO BID [facility] Last Admin: 05/10/24 21:56 Dose: 5 mg Documented By: ELIZABETH Calcium Carbonate (Calcium Carbonate 750 Mg Tab.Chew) 750 mg PO Q4H PRN PRN Reason: Heartburn Cyanocobalamin (Cyanocobalamin (Vitamin B-12) 1,000 Mcg Tablet) 1,000 mcg PO DAILY [facility] Ferrous Sulfate (Ferrous Sulfate 324 Mg Tablet.) 324 mg PO MOWEFR [facility] Fluticasone/Vilanterol (Fluticasone/Vilanterol 100/25 Blst.W.Dev) 1 puff INHALE RDAILY [facility] Fluconazole (Diflucan) 200 mg in 100 mls @ 100 mls/hr IV Q24H [facility] Last Infusion: 05/10/24 17:01 Dose: Infused Documented By: OMAR Mclend[place] Carbonate (Mcl[place] Carbonate Er 450 Mg Tablet.Er) 450 mg PO TID [facility] Last Admin: 05/10/24 21:57 Dose: 450 mg Documented By: ELIZABETH Loratadine (Loratadine 10 Mg Tablet) 10 mg PO DAILY PRN PRN Reason: Allergy Symptoms Magnesium Hydroxide (Milk Of Magnesia 30 Ml Oral.Susp) 30 ml PO DAILY PRN PRN Reason: Constipation Melatonin (Melatonin 3 Mg Tablet) 6 mg PO BEDTIME PRN PRN Reason: Insomnia Last Admin: 05/10/24 23:49 Dose: 6 mg Documented By: AGUEDA Melatonin (Melatonin 3 Mg Tablet) 3 mg PO BEDTIME [facility] Last Admin: 05/10/24 21:57 Dose: 3 mg Documented By: ELIZABETH Methylprednisolone Sodium Succinate (Methylprednisolone Sod Succ 40 Mg/Ml Vial) 40 mg IVPUSH Q12H [facility] Last Admin: 05/10/24 21:55 Dose: 40 mg Documented By: ELIZABETH Nicotine (Nicotine 14 Mg Patch.Td24) 14 mg TRANSDERMA DAILY [facility] Last Admin: 05/10/24 12:18 Dose: 14 mg Documented By: CAMILLA Olanzapine (Olanzapine 10 Mg Tablet) 10 mg PO BEDTIME [facility] Last Admin: 05/10/24 21:57 Dose: 10 mg Documented By: ELIZABETH Omeprazole (Omeprazole 20 Mg Capsule.) 20 mg PO DAILY [facility] Ondansetron HCl (Ondansetron Hcl 4 Mg/2 Ml Vial) 4 mg IVPUSH Q8H PRN PRN Reason: Nausea and Vomiting Ropinirole HCl (Ropinirole Hcl 1 Mg Tablet) 1 mg PO BEDTIME [facility] Last Admin: 05/10/24 21:57 Dose: 1 mg Documented By: ELIZABETH Sodium Chloride (0.9 % Sodium Chloride Flush 3 Ml Syringe) 3 ml IVFLUSH QSHIFT [facility] Last Admin: 05/10/24 23:49 Dose: 3 ml Documented By: ZACHARIAHQC Tiotropium Bombay (Tiotropium Bombay 2.5 Mcg 1 Puff/2.5 Mcg Mist.Inhal) 1 puff INHALE RDAILY [facility] Vitamin D (Cholecalciferol (Vitamin D3) 25 Mcg Tablet) 25 mcg PO DAILY [facility] Labs 05/11/24 05:41 05/11/24 05:41 Labs: Laboratory Results - last 24 hr 05/10/24 05/10/24 05/10/24 09:09 09:12 09:40 MCV MCH MCHC RDW Plt Count MPV Immature Gran % (Auto) Neut % (Auto) Lymph % (Auto) Swisher % (Auto) Eos % (Auto) Baso % (Auto) Lymph # (Auto) Swisher # (Auto) Eos # (Auto) Baso # (Auto) Abs Immat Gran (auto) Absolute Neuts (auto) Absolute Nucleated RBC Nucleated RBC % (auto) Smear Tech's Comments VBG pH 7.43 VBG pCO2 51 VBG pO2 73 VBG HCO3 34 H VBG O2 Saturation 98.0 VBG Base Excess 8.5 Anion Gap Estim Creat Clear Calc Estimated GFR Random Glucose Lactic Acid 0.9 Calcium Hold Green Top See Note Urine Color Urine Appearance Urine pH Ur Specific Crescent Urine Protein Urine Glucose (UA) Urine Ketones Urine Blood Urine Nitrite Ur Leukocyte Esterase Urine RBC Urine WBC Ur Squamous Epith Cells Urine Bacteria Hyaline Casts Urine Opiates Screen Ur Buprenorphine Scrn Ur Oxycodone Screen Urine Methadone Screen Urine Fentanyl Screen Ur Barbiturates Screen Ur Phencyclidine Scrn Ur Amphetamines Screen U Benzodiazepines Scrn [place]cl[place] Urine Cocaine Screen U Marijuana (THC) Screen 05/10/24 05/11/24 09:53 05:41 MCV 100.0 H MCH 30.9 MCHC 30.9 L RDW 13.5 Plt Count 192 MPV 10.3 Immature Gran % (Auto) 0.4 Neut % (Auto) 91.1 H Lymph % (Auto) 6.9 L Swisher % (Auto) 1.3 L Eos % (Auto) 0.0 Baso % (Auto) 0.3 Lymph # (Auto) 0.7 L Swisher # (Auto) 0.1 Eos # (Auto) 0.0 Baso # (Auto) 0.0 Abs Immat Gran (auto) 0.04 H Absolute Neuts (auto) 8.8 H Absolute Nucleated RBC 0.000 Nucleated RBC % (auto) 0.0 Smear Tech's Comments VERIFIED VBG pH VBG pCO2 VBG pO2 VBG HCO3 VBG O2 Saturation VBG Base Excess Anion Gap 11 L Estim Creat Clear Calc 141.9 Estimated GFR > 60 Random Glucose 128 H Lactic Acid Calcium 9.9 Hold Green Top Urine Color Dark Yellow Urine Appearance Clear Urine pH 6.5 Ur Specific Crescent 1.020 Urine Protein Trace Urine Glucose (UA) Negative Urine Ketones Trace Urine Blood Negative Urine Nitrite Negative Ur Leukocyte Esterase Trace H Urine RBC 0-2 Urine WBC 0-5 Ur Squamous Epith Cells 0-2 Urine Bacteria None Seen Hyaline Casts 0-2 Urine Opiates Screen Not Detected Ur Buprenorphine Scrn Not Detected Ur Oxycodone Screen Not Detected Urine Methadone Screen Not Detected Urine Fentanyl Screen Not Detected Ur Barbiturates Screen Not Detected Ur Phencyclidine Scrn Not Detected Ur Amphetamines Screen Not Detected U Benzodiazepines Scrn Not Detected Mclendon-[place]olm 1.00 Urine Cocaine Screen POSITIVE H U Marijuana (THC) Screen Not Detected Assessment and Plan (1) COPD exacerbation: Status: Acute Plan This is a 54-year-old female with pertinent history of chronic hypoxemic respiratory failure due to COPD/asthma overlap syndrome on 2 L supplemental oxygen while ambulation, fibromyalgia, osteoarthritis, PE on Eliquis, polysubstance use disorder, borderline personality disorder, bipolar disorder who presented to the emergency department for evaluation of dyspnea and altered mentation. #. Acute on chronic hypoxemic respiratory failure due to acute exacerbation of COPD/asthma: Continue supplemental oxygen and IV steroids. Currently on 5 L supplemental oxygen. Baseline home 2 L. Scheduled and p.r.n. DuoNebs. Continue home inhaler #. Acute metabolic encephalopathy in the setting of hypoxia- Resolved #. FABIOLA: Noncompliant with CPAP at home. Initiate CPAP while in the hospital #. Tobacco use disorder: Ordered nicotine patch while in the hospital. Counseled regarding cessation #. Mood disorder: Continue home mood stabilizers #. Obesity: Counseled regarding diet and exercise #. Polysubstance use disorder: UDS positive for cocaine. Consulting Addiction Team #. PE on Eliquis DVT prophylaxis: Eliquis Full code Reason for continued hospitalization: Supplemental oxygen and IV steroids. Awaiting PT evaluation Quality Stroke Does the patient have a stroke diagnosis?: No VTE Prior VTE?: No VTE Risk Level:: Medical - moderate - high VTE Device Contraindication: Treatment Not Indicated VTE Drug Contraindication: N/A - Med Ordered
[2024-05-11] MEDS: Cyanocobalamin (Vitamin B-12) 1,000 MCG TABLET 1000 MCG PO (09:17)
[2024-05-11] MEDS: 0.9 % Sodium Chloride Flush 3 ML SYRINGE IVFLUSH ×3 (09:17→20:32)
[2024-05-11] MEDS: Cholecalciferol (Vitamin D3) 25 MCG TABLET PO (09:17)
[2024-05-11] MEDS: Lithium Carbonate ER 450 MG TABLET.ER PO ×3 (09:17→20:31)
[2024-05-11] MEDS: Omeprazole 20 MG CAPSULE.DR PO (09:17)
[2024-05-11] MEDS: Apixaban 5 MG TABLET PO ×2 (09:17→20:31)
[2024-05-11] MEDS: methylPREDNISolone Sod Succ 40 MG/ML VIAL IVPUSH ×2 (09:17→20:32)
[2024-05-11] MEDS: Nicotine 14 MG PATCH.TD24 TRANSDERMA (09:18)
--- NOTE | 2024-05-11 09:18 | MHC.CM.PN ---
Addendum entered by Princess Larson RN 05/11/24 09:41: Patient uses home 02 2L w/ ambulation, supplier is [facility]. Original Note: Patient reports she lives in an apartment alone. States she is in the process of setting up [employer] services, but currently performs all ADL's independently. Ambulates w/ rollator or cane. Services include: [facility] for CM and [facility] for SN/med management. HCP on file and verified. PCP Mike Maolne MD DP: [place] services [place] [facility] [place]. CM will continue to follow.
--- NOTE | 2024-05-11 09:53 | MHC.RECOVRN ---
Met with pt in 363 after consult placed to Addiction Medicine for cocaine use disorder. Pt had presented to the ED with AMS and an unwitnessed fall at home. Upon evaluation, pt admitted for AMS, hypoxia, COPD exacerbation. Pt sititng in chair, awake, alert, easily engages in conversation. Pt reports initiating cocaine use, INH, 6 years ago due to people places and things. Pt reports using $60 daily. Pt denies having time in recovery. Pt denies hx ATS admission, denies hx tx for stimulant use disorder. Pt reports she has a supportive friend, Al, who is in recovery. Discussed recovery resources and supports, pt is interested in a assistant basketball coach. Pt denies other questions or concerns for t/w. gymnastic coach referral placed.
[2024-05-11] MEDS: Fluticasone/Vilanterol 100/25 BLST.W.DEV 1 PUFF INHALE (11:50)
[2024-05-11] MEDS: Tiotropium Bromide 2.5 mcg 1 PUFF/2.5 MCG MIST.INHAL INHALE (11:50)
[2024-05-11] MEDS: Fluconazole in NaCl,Iso-Osm 200 MG/100 ML PIGGYBACK 100 MG IV (14:09)
[2024-05-11] MEDS: Ferrous Sulfate 324 MG TABLET.DR PO (16:41)
[2024-05-11] MEDS: Melatonin 3 MG TABLET PO (20:31)
[2024-05-11] MEDS: rOPINIRole HCL 1 MG TABLET PO (20:31)
[2024-05-11] MEDS: OLANZapine 10 MG TABLET PO (20:31)
[2024-05-11] MEDS: Melatonin 3 MG TABLET 6 MG PO (22:13)
[2024-05-12 03:50] VITALS: BP 123/73; PULSE 71; RESP 20; TEMP 36.1; O2SAT 93
[2024-05-12 07:16] LABS: Basophils Percent Auto 0.2 % (0-2); Hematocrit 49.5 % (37.0-47.0); Imm Gran Abs Auto 0.05 X10*3/uL (0.00-0.03); Imm Gran Pct Auto 0.4 % (0.0-0.4); Lymphocytes Absolute Auto 0.7 X10*3/uL (1.2-4.9); Lymphocytes Percent Auto 5.6 % (20-40); MANUAL DIFF FLAG SCAN; Mean Corpuscular HGB Conc 30.3 g/dl (31.0-35.0); Mean Corpuscular Hemoglobin 30.7 pg (27.0-33.0); Mean Corpuscular Volume 101.2 fL (80.0-98.0); Mean Platelet Volume 11.6 fL (9.4-12.3); Monocytes Absolute Auto 0.3 X10*3/uL (0.1-1.2); Monocytes Percent Auto 2.7 % (2-11); Neutrophils Percent Auto 91.1 % (45-73); Platelet Count 157 X10*3/uL (160-400); Red Blood Count 4.89 X10*6/uL (4.20-5.50); SCAN SMEAR FLAG 1; White Blood Count 12.1 X10*3/uL (4.8-10.8)
[2024-05-12 07:29] VITALS: BP 121/80; PULSE 88; RESP 20; TEMP 36.9; O2SAT 95
[2024-05-12 07:45] LABS: Anion Gap 12 (12-20); Blood Urea Nitrogen 9 mg/dL (9-16); Calcium 10.1 mg/dL (8.4-10.2); Carbon Dioxide 29 mmol/L (22-29); Chloride 102 mmol/L (96-108); Creatinine Clr Calc Pharmacy 118.2; Estimated Glomerular Filt Rate > 60; Glucose Random 135 mg/dL (60-115); Potassium 5.1 mmol/L (3.3-5.1); Sodium 138 mmol/L (135-145)
[2024-05-12] MEDS: Omeprazole 20 MG CAPSULE.DR PO (07:51)
[2024-05-12] MEDS: Nicotine 14 MG PATCH.TD24 TRANSDERMA (07:51)
[2024-05-12] MEDS: Cholecalciferol (Vitamin D3) 25 MCG TABLET PO (07:51)
[2024-05-12] MEDS: 0.9 % Sodium Chloride Flush 3 ML SYRINGE IVFLUSH (07:51)
[2024-05-12] MEDS: Lithium Carbonate ER 450 MG TABLET.ER PO (07:51)
[2024-05-12] MEDS: Cyanocobalamin (Vitamin B-12) 1,000 MCG TABLET 1000 MCG PO (07:51)
[2024-05-12] MEDS: Apixaban 5 MG TABLET PO (07:52)
[2024-05-12 07:58] LABS: SLIDE REVIEW VERIFIED
[2024-05-12 08:10] VITALS: PULSE 88; RESP 17; O2SAT 95
[2024-05-12] MEDS: Albuterol/Iprat 2.5/0.5MG 3 ML AMPUL.NEB INHALE ×2 (08:10→11:35)
[2024-05-12] MEDS: Fluticasone/Vilanterol 100/25 BLST.W.DEV 1 PUFF INHALE (08:10)
[2024-05-12] MEDS: Tiotropium Bromide 2.5 mcg 1 PUFF/2.5 MCG MIST.INHAL INHALE (08:10)
[2024-05-12] MEDS: methylPREDNISolone Sod Succ 40 MG/ML VIAL IVPUSH (09:54)
[2024-05-12 11:35] VITALS: PULSE 89; RESP 18; O2SAT 97
--- NOTE | 2024-05-12 12:45 | P.DS_ITS ---
DS: Providers Provider Date of Service: 05/12/24 Date of admission: 05/10/24 11:31 Date of discharge: 05/12/24 Primary care physician: [facility] Consults: 05/10/24 11:39 Addiction Medicine Routine Consulting Provider: Addiction Covering Reason for consultation: Cocaine use disorder DS: Diagnosis Discharge Diagnosis (1) COPD exacerbation: Status: Acute DS: Summary Hospital Course Hospital Course: 54-year-old female with pertinent history of chronic hypoxemic respiratory failure due to COPD/asthma overlap syndrome on 2 L supplemental oxygen while ambulation, fibromyalgia, osteoarthritis, PE on Eliquis, polysubstance use disorder, borderline personality disorder, bipolar disorder who presented to the emergency department for evaluation of dyspnea and altered mentation. Patient was initially seen in the ER for altered mentation. CT head without any acute abnormality. UA without concerning for UTI. Electrolytes within normal limits. Patient was found to be hypoxic satting 77% on her home O2. She was also found to be wheezing. Patient denies cough. No fever, chills, chest discomfort, palpitations, abdominal pain, changes in urinary or bowel habits. Hospital Course Admitted to general medical floor and started on IV steroids and aggressive nebulizer treatment. Over the next 48 hours she improved to the point where she is insisting she go home. She has services and home O2 in place and given her overall clinical picture she is medically acceptable to be discharged home with VNA services and follow up with the PCP. On the day of discharge patient did become agitated threatening to sign out if not sent. Decision was made to DC with prednisone taper and VNA services Time Attestation Discharge Coordination Time (in mins): 35 Quality: Safe Use of Opioids Does Pt have an Active Cancer Diagnosis on the Problem List?: No Quality: Stroke Does the patient have a stroke diagnosis?: No Physical Exam Vital Signs: Vital Signs: Last Vital Signs Temp 98.4 F 05/12/24 07:29 Pulse 89 05/12/24 11:35 Resp 18 05/12/24 11:35 BP 121/80 05/12/24 07:29 Pulse Ox 95 05/12/24 07:29 O2 Del Method Nasal Cannula 05/12/24 07:29 O2 Flow Rate 4 05/12/24 07:29 Oxygen Flow Rate 2 05/09/24 15:43 BMI result Body Mass Index 40.8 Const: Other: Awake alert no acute distress. Able to speak in full sentences Resp: Other: Diminished at bases however clear Cardio: Other: No S4; positive S1-S2; no S3 murmurs rubs or gallops GI: Other: Soft nontender nondistended normoactive bowel sounds Extrem: Other: Trace edema bilaterally DS: Data Data Completed and Pending Completed studies during hospitalization [Text1]: Procedures Assistance with Respiratory Ventilation, Less than 24 Consecutive Hours, Continuous Positive Airway Pressure (02/20/24) Drainage of Left Parotid Gland, Percutaneous Approach, Diagnostic (11/09/21) Drainage of Neck, Percutaneous Approach, Diagnostic (03/17/22) Excision of Left Parotid Gland, Percutaneous Approach, Diagnostic (03/17/22) Introduction of Remdesivir Anti-infective into Peripheral Vein, Percutaneous Approach, [employer] (06/01/22) Labs on day of discharge: Laboratory Results - last 24 hr 05/12/24 05:49 WBC 12.1 H RBC 4.89 Hgb 15.0 Hct 49.5 H MCV 101.2 H MCH 30.7 MCHC 30.3 L RDW 14.0 Plt Count 157 L MPV 11.6 Immature Gran % (Auto) 0.4 Neut % (Auto) 91.1 H Lymph % (Auto) 5.6 L Woodson % (Auto) 2.7 Eos % (Auto) 0.0 Baso % (Auto) 0.2 Lymph # (Auto) 0.7 L Woodson # (Auto) 0.3 Eos # (Auto) 0.0 Baso # (Auto) 0.0 Abs Immat Gran (auto) 0.05 H Absolute Neuts (auto) 11.0 H Absolute Nucleated RBC 0.000 Nucleated RBC % (auto) 0.0 Smear Tech's Comments VERIFIED Sodium 138 Potassium 5.1 Chloride 102 Carbon Dioxide 29 Anion Gap 12 BUN 9 Creatinine 0.66 Estim Creat Clear Calc 118.2 Estimated GFR > 60 Random Glucose 135 H Calcium 10.1 Preliminary micro results at discharge 05/10/24 10:08 Blood Culture - Preliminary Blood - Venous No growth after 48 hours. 05/10/24 09:37 Blood Culture - Preliminary Blood - Venous No growth after 48 hours. Discharge Plan Discharge Anticipated Discharge Date/Time: 05/12/24 12:36 Patient Disposition: Home Health Service Discharge Diagnosis: Acute on chronic hypoxic respiratory failure secondary to COPD exacerbation Referrals: [facility] [Primary Care Provider] - 1 Week Discharge Medications: New nystatin 100,000 unit/mL suspension 500,000 unit buccal Q6H 7 Days Qty: 140 0RF Rx Instructions: administer 1/2 of dose in each side of the mouth Eliquis 5 mg Tablet 5 mg PO BID Qty: 60 0RF prednisone 10 mg tablet See Rx Instructions .Route .COMPLEX Qty: 45 0RF Rx Instructions: 10 mg orally; 5 tabs p.o. daily x3 days; 4 tabs p.o. daily x3 days; 3 tabs daily x3 days; 2 tabs daily x3 days; 1 tab daily x3 days Continued ropinirole 1 mg Tablet 1 mg PO BEDTIME Qty: 30 0RF olanzapine 10 mg Tablet 10 mg PO BEDTIME Qty: 30 0RF clonidine HCl 0.2 mg Tablet 0.2 mg PO BEDTIME Qty: 30 0RF Protocol: Hold for SBP< HOLD for SBP < : 90 tiotropium bromide [Spiriva with HandiHaler] 18 mcg Capsule, W/Inhalation Device 18 mcg inhalation RDAILY Qty: 20 0RF cetirizine 10 mg Tablet 10 mg PO DAILY PRN (Reason: Allergy Symptoms) melatonin 3 mg Tablet 3 mg PO BEDTIME gabapentin 300 mg capsule 300 mg PO TID cholecalciferol (vitamin D3) [Vitamin D3] 25 mcg (1,000 unit) tablet 25 mcg PO DAILY ferrous sulfate 325 mg (65 mg iron) Tablet 325 mg PO MOWEFR fluticasone propion-salmeterol [Advair HFA] 115-21 mcg/actuation Hfa Aerosol Inhaler 2 puff INHALATION BID pantoprazole 20 mg Tablet,Delayed Release (Dr/Ec) 20 mg PO DAILY lithium carbonate 450 mg tablet extended release 450 mg PO TID cyanocobalamin (vitamin B-12) [Vitamin B-12] 1,000 mcg tablet 1,000 mcg PO DAILY ipratropium-albuterol 0.5 mg-3 mg(2.5 mg base)/3 mL solution for nebulization 3 ml inhalation RQ6H PRN (Reason: Shortness Of Breath Or Wheezing) Discontinued levofloxacin 750 mg tablet 750 mg PO DAILY Qty: 5 0RF Discharge Orders: Discharge Order (Routine); Ordered 05/12/24 Ordered By: Maninder Jett Diet: Advance to usual diet Activity on Discharge: As tolerated Stand Alone Forms: Patient Portal Discharge page Print Language: Nepali Care Plan Goals: Resume all medicines as taken prior to hospitalization along with home O2 and nebulizer treatments Health Concerns: Complete prednisone taper as ordered Plan of Treatment: VNA will continue to follow you at home as prior to hospitalization Assessment: See discharge summary
--- NOTE | 2024-05-12 12:51 | W.MHC.F2F ---
Service Date Service Date: 05/12/24 Encounter Date of encounter: 05/12/24 Reasons for Services Signs and symptoms assessed: Assess respiratory status Reason for mcc: medication management, teach disease management and other (Monitoring respiratory status) Homebound: Leaving the home is medically contraindicated at this time without the asist of a device and/or another person due th the listed conditions above and below. Reason homebound: unsteady gait / fall risk, leg weakness and unable to drive Certification: Based on the above findings, I certify that this patient is confined to the home and needs intermittent mcc care, physical therapy and/or speech therapy, or continues to need occupational therapy. The patient is under my care, and I have initiated the establishment of the plan of care. The patient will be followed by a physician who will periodically review the plan of care. Time Spent With Patient Time: Total time managing care of this patient today ____ minutes.
--- NOTE | 2024-05-12 12:59 | MHC.CM.PN ---
Per MD patient medically cleared for dc home w/ resumption of services. Kam YADAV aware of dc. Patient will be transported home via [employer] at 130pm. Patient and RN aware.
== END 2024-05-12 13:28 | disposition home health service (06) | DRG 140 ==
LOC: HO.ED 05-10 11:02 → HO.EDOVER 05-10 11:37 → HO.S3 05-10 21:18
PROVIDERS: Emergency Medicine; Physician Assistant; Physician Assistant Medical; Admitting Provider Student in an Organized Health Care Education/Training Program; Emergency Provider Internal Medicine; PCP Internal Medicine; Visit Provider Hospitalist
DX: J44.1 Chronic obstructive pulmonary disease with (acute) exacerbation (principal); J96.21 Acute and chronic respiratory failure with hypoxia; G93.41 Metabolic encephalopathy; J45.901 Unspecified asthma with (acute) exacerbation; F19.90 Other psychoactive substance use, unspecified, uncomplicated; F39 Unspecified mood [affective] disorder; G47.33 Obstructive sleep apnea (adult) (pediatric); Z20.822 Contact with and (suspected) exposure to COVID-19; Z86.711 Personal history of pulmonary embolism; Z99.81 Dependence on supplemental oxygen; Z79.51 Long term (current) use of inhaled steroids; Z79.899 Other long term (current) drug therapy
CPT/HCPCS: 0241U; 36415; 70450; 71250; 72125; 80048; 80076; 80178; 80179; 80307; 81001; 81003; 82140; 82550; 82803; 83605; 83735; 84484; 85025; 85610; 86140; 87040; 93005; 94640; 94660; 97162; 99221; 99285; J0696; J1450; J2919

== ENCOUNTER → 2024-05-09 15:33 | Outpatient (BNV) | payer MEDICAID, SELFPAY | PROVIDERS: Admitting Provider Student in an Organized Health Care Education/Training Program; Emergency Provider Internal Medicine; Visit Provider Internal Medicine Cardiovascular Disease | DX: R94.31 Abnormal electrocardiogram [ECG] [EKG] (principal) | CPT/HCPCS: 93010 ==

== ENCOUNTER 2024-05-10 11:31 | Outpatient (BNV) | payer MEDICAID, SELFPAY | END 2024-05-10 23:47 | PROVIDERS: Admitting Provider Student in an Organized Health Care Education/Training Program; Emergency Provider Internal Medicine; Visit Provider Internal Medicine Cardiovascular Disease | DX: R07.9 Chest pain, unspecified (principal); R94.31 Abnormal electrocardiogram [ECG] [EKG] | CPT/HCPCS: 93010 ==

== ENCOUNTER → 2024-05-10 11:31 | Outpatient (BNV) | payer MEDICAID, SELFPAY | PROVIDERS: Admitting Provider Student in an Organized Health Care Education/Training Program; Emergency Provider Internal Medicine; Visit Provider Student in an Organized Health Care Education/Training Program | DX: J44.1 Chronic obstructive pulmonary disease with (acute) exacerbation (principal) | CPT/HCPCS: 99223; 99232; 99239; G0180 ==

== ENCOUNTER 2024-05-25 22:06 | Inpatient (IN) | payer MEDICAID, OTHER, SELFPAY ==
[2024-05-25 22:14] VITALS: BP 156/72; PULSE 108; O2SAT 94
[2024-05-25 22:18] VITALS: BP 129/79; PULSE 100; RESP 20; TEMP 37; O2SAT 94; BMI 36.6
[2024-05-25 22:30] VITALS: BP 129/79; PULSE 100; RESP 20; TEMP 37; O2SAT 94
[2024-05-25 22:57] LABS: MANUAL DIFF FLAG NO
[2024-05-25 22:58] LABS: Basophils Absolute Auto 0.1 X10*3/uL (0.0-0.2); Basophils Percent Auto 0.4 % (0-2); Eosinophils Absolute Auto 0.1 X10*3/uL (0.0-0.4); Eosinophils Percent Auto 0.4 % (0-4); Hematocrit 52.2 % (37.0-47.0); Hemoglobin 16.3 g/dl (12.0-16.0); Imm Gran Abs Auto 0.08 X10*3/uL (0.00-0.03); Imm Gran Pct Auto 0.6 % (0.0-0.4); Lymphocytes Absolute Auto 2.7 X10*3/uL (1.2-4.9); Lymphocytes Percent Auto 19.8 % (20-40); Mean Corpuscular HGB Conc 31.2 g/dl (31.0-35.0); Mean Corpuscular Hemoglobin 30.8 pg (27.0-33.0); Mean Corpuscular Volume 98.7 fL (80.0-98.0); Mean Platelet Volume 9.4 fL (9.4-12.3); Monocytes Percent Auto 7.2 % (2-11); NRBC Pct Auto 0.1 /100WBC (0.0-0.2); Neutrophils Absolute Auto 9.7 x10*3/uL (2.0-8.3); Neutrophils Percent Auto 71.6 % (45-73); Platelet Count 294 X10*3/uL (160-400); Red Blood Count 5.29 X10*6/uL (4.20-5.50); White Blood Count 13.6 X10*3/uL (4.8-10.8)
[2024-05-25 23:09] LABS: Amphetamine Screen Urine Not Detected (Not Detect); Barbiturates, Urine Not Detected (Not Detect); Benzodiazepines Screen Urine Not Detected (Not Detect); Buprenorphine Scr Not Detected (Not Detect); Cannabinoid Screen Urine Not Detected (Not Detect); Cocaine Screen Urine POSITIVE (Not Detect); Fentanyl, urine Not Detected (Not Detect); Methadone Screen, Urine Not Detected (Not Detect); Opiate Screen Urine Not Detected (Not Detect); Oxycodone Screen Urine Not Detected (Not Detect); Phencyclidine Screen Urine Not Detected (Not Detect)
[2024-05-25 23:14] LABS: Alanine Aminotransferase 12 U/L (0-31); Albumin Level 4.3 g/dL (3.5-5.0); Alkaline Phosphatase 47 U/L (39-117); Anion Gap 13 (12-20); Aspartate Amino Transferase 10 U/L (5-31); Bilirubin Total 0.4 mg/dL (0.0-1.0); Blood Urea Nitrogen 13 mg/dL (9-16); Calcium 9.6 mg/dL (8.4-10.2); Carbon Dioxide 33 mmol/L (22-29); Chloride 100 mmol/L (96-108); Creatinine Clr Calc Pharmacy 85.5; Estimated Glomerular Filt Rate > 60; Ethanol < 10 mg/dL; Glucose Random 91 mg/dL (60-115); Potassium 3.7 mmol/L (3.3-5.1); Sodium 142 mmol/L (135-145); Total Protein 6.7 g/dL (6.5-8.0)
--- NOTE | 2024-05-25 23:43 | ED_ITS ---
HPI - General Adult General Chief complaint: Psychiatric Symptoms Stated complaint: SI w/ plan, COPD, O2 dependent Time Seen by Provider: 05/25/24 23:19 Source: patient, RN notes reviewed and old records reviewed Mode of arrival: EMS Limitations: no limitations History of Present Illness ED Provider: Russell HPI narrative: 54-year-old female with past medical history significant for pulmonary embolism on Eliquis, COPD on chronic 2 L, obesity, bipolar disorder, PTSD, substance abuse presents for evaluation of suicidal ideation. Patient reports worsening depression over last few days. She reports a plan to jump off a bridge in an attempt to commit suicide She states that she has a lot around her life. She has disagreements with her neighbor. She also reports she has multiple anniversary is of family test coming up in May that also increases her depression Patient reports previous remote SI attempts with opiate overdose She denies any recent SI attempts She does admitting to smoking crack cocaine an hour prior to arrival Patient was admitted 2 weeks ago for acute hypoxic respiratory failure and metabolic encephalopathy. She denies any somatic complaints today Related Data Home Medications ?Medication ?Instructions ?Recorded ?Confirmed lithium carbonate 450 mg 450 mg PO TID 05/14/23 05/10/24 tablet,extended release cyanocobalamin (vitamin B-12) 1,000 mcg PO DAILY 06/11/23 05/10/24 1,000 mcg tablet (Vitamin B-12) ipratropium 0.5 mg-albuterol 3 mg 3 ml inhalation RQ6H PRN Shortness 06/11/23 05/10/24 (2.5 mg base)/3 mL nebulization Of Breath Or Wheezing soln cetirizine 10 mg tablet 10 mg PO DAILY PRN Allergy Symptoms 12/19/23 05/10/24 melatonin 3 mg tablet 3 mg PO BEDTIME 12/19/23 05/10/24 cholecalciferol (vitamin D3) 25 25 mcg PO DAILY 02/20/24 05/10/24 mcg (1,000 unit) tablet (Vitamin D3) gabapentin 300 mg capsule 300 mg PO TID 02/20/24 05/10/24 ferrous sulfate 325 mg (65 mg 325 mg PO MOWEFR 05/10/24 05/10/24 iron) tablet fluticasone propionate 115 2 puff inhalation BID 05/10/24 05/10/24 mcg-salmeterol 21 mcg/actuation HFA inhaler (Advair HFA) pantoprazole 20 mg tablet,delayed 20 mg PO DAILY 05/10/24 05/10/24 release Previous Rx's ?Medication ?Instructions ?Recorded clonidine HCl 0.2 mg tablet 0.2 mg PO BEDTIME #30 tabs 03/22/23 olanzapine 10 mg tablet 10 mg PO BEDTIME #30 tabs 03/22/23 ropinirole 1 mg tablet 1 mg PO BEDTIME #30 tabs 03/22/23 tiotropium bromide 18 mcg capsule 18 mcg inhalation RDAILY #20 03/22/23 with inhalation device (Spiriva inhalations with HandiHaler) nystatin 100,000 unit/mL oral 500,000 unit (5 mL) buccal Q6H 1 05/09/24 suspension week #140 mL apixaban 5 mg tablet (Eliquis) 5 mg PO BID #60 tabs 05/12/24 prednisone 10 mg tablet See Rx Instructions .Route 05/12/24 .COMPLEX #45 tabs Allergies Allergy/AdvReac Type Severity Reaction Status Date / Time aspirin Allergy Mild Anaphylaxis Verified 05/25/24 22:21 ampicillin Allergy Rash Verified 05/25/24 22:21 Penicillins Allergy Anaphylaxis Verified 05/25/24 22:21 latex AdvReac Rash Verified 05/25/24 22:21 Latex, Natural Rubber AdvReac Rash Verified 05/25/24 22:21 seafood AdvReac Anaphylaxis Verified 05/25/24 22:21 Sulfa (Sulfonamide AdvReac Hives Verified 05/25/24 22:21 Antibiotics) Review of Systems 2 Constitutional: Constitutional: Reports as per HPI, Denies chills, Denies fatigue, Denies fever(s) and Denies headache(s) ENT: Denies headache(s) Cardiovascular: Cardiovascular: Denies chest pain and Denies dyspnea Respiratory: Respiratory: Denies cough and Denies dyspnea Gastrointestinal: Gastrointestinal: Denies abdominal pain, Denies constipation and Denies vomiting Genitourinary: Genitourinary: Denies dysuria Neurologic: Denies headache(s) and Denies focal weakness Endocrine: Endocrine: Denies fatigue PMFSH Past Medical History Medical History Morbid obesity Intentional overdose Acute bronchospasm Bipolar I disorder with depression Overdose on Tylenol Suicide attempt Asthma COPD (chronic obstructive pulmonary disease) Chronic lung disease Neoplasm of parotid gland Depression 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 Drug abuse Bipolar I disorder Post traumatic stress disorder (PTSD) Tobacco use disorder FABIOLA (obstructive sleep apnea) Borderline personality disorder Intermittent explosive disorder Asthma exacerbation in COPD Herpes Tobacco use Bipolar disorder COPD (chronic obstructive pulmonary disease) Surgical History History of ankle surgery History of back surgery Hx of cholecystectomy History of appendectomy Family History Family History Mother COPD (chronic obstructive pulmonary disease) Social History Social History Household Members: None Household Members Other:: So Housing: Apartment Housing Other:: Sleeps on the couch at [facility] house Do you presently have visiting nurse or other home services: Yes ([facility]) Unable to assess alcohol history related to: Unknown Alcohol intake: former Comment: 1:1sitter Patient Tobacco Use Status: Current everyday Tobacco user Tobacco use type: Cigarette Cigarette Packs Per Day: 3 Cigarettes Per Day: 60.0 Years Smoked: 20 Smoked in Last 30 Days: Yes e-Cigarette/Vaping Use: Never Used Second Hand Smoke Exposure: No Substance Use Type: Crack/Cocaine Advance Directives: Yes Advance Directives on File: Yes Advance Directives Date on File: 06/17/22 Do you have a plan to hurt others: No Plan service: No Current occupational status: unemployed and disabled Sexual orientation: Straight/Heterosexual Physical Exam ED Vital Signs: Vital Signs - 24 hr 05/25/24 22:18 05/25/24 22:30 Temperature 98.6 F 98.6 F Pulse Rate 100 100 Respiratory Rate 20 20 Blood Pressure 129/79 129/79 Pulse Oximetry 94 94 Oxygen Delivery Method Nasal Cannula Room Air Nasal Cannula Oxygen Flow Rate 2 BMI result Body Mass Index 36.6 Const General: comfortable, no acute distress, alert and awake Nutritional Appearance: well nourished Orientation/consciousness: patient oriented x3 HENMT Head: Yes normocephalic and Yes atraumatic Eyes Eyelids: Yes eyelids normal Conjunctivae: conjunctivae normal Sclerae: sclerae normal Corneas: corneas normal Pupils: Equal, round and reactive pupils present EOM: EOMs intact bilaterally Neck Neck: Yes full ROM Resp Effort & Inspection: normal respiratory effort, able to speak in complete sentences, no audible wheezes and not labored Auscultation: clear to auscultation bilaterally Cardio Rate: regular rate Rhythm: regular rhythm GI Inspection: No distended Palpation (GI): Soft to palpation, not firm, nontender, no guarding and not rigid Skin General skin exam: elasticity normal Neuro General: patient oriented x3 Cranial nerves: Yes CN's II-XII intact bilaterally, Yes Equal, round and reactive pupils present and Yes Bilaterally intact EOM present Cognition (Neuro): normal cognition Extrem Other: Moving all extremities well without any obvious deformities Course Reevaluation(s) Reevaluation #1: Physician observation commences awaiting care team consult Time: 23:54 Reevaluation #2: Patient is seen by the care team and will be a bed search for inpatient psychiatric care. She will be placed on a section 12 Time: 00:16 Medical Decision Making Medical Decision Making [facility] Narrative: 54-year-old female with multiple comorbidities and past medical history as documented above presents for evaluation of suicidal ideation. She has no somatic complaints today. Her vital signs are within normal limits on her baseline oxygen requirements. Routine labs show a mild leukocytosis to 13.6 which she frequently has may be reactive to recent cocaine use. Patient's hemoglobin and hematocrit are frequently high normal and are slightly elevated today at 16.3 and 52.2 respectively. This is consistent with her baseline. Chemistry indices show no significant abnormalities warranting intervention. She does have an elevated carbon dioxide level was 233 which is expected for her COPD and chronic oxygen use. Patient is medically cleared for care team evaluation at this time Differential Diagnosis Differential Diagnoses: The differential diagnosis associated with the presentation includes Suicidal ideation Polysubstance abuse Depression Borderline personality PTSD COPD Lab Data [facility] Lab Attestation statement: I reviewed the patient's lab results. Please see medical decision making above 05/25/24 22:53 05/25/24 22:53 Labs: Lab Results 05/25/24 Range/Units 22:53 WBC 13.6 H (4.8-10.8) X10*3/uL RBC 5.29 (4.20-5.50) X10*6/uL Hgb 16.3 H (12.0-16.0) g/dl Hct 52.2 H (37.0-47.0) % MCV 98.7 H (80.0-98.0) fL MCH 30.8 (27.0-33.0) pg MCHC 31.2 (31.0-35.0) g/dl RDW 14.0 (11.0-16.0) % Plt Count 294 D (160-400) X10*3/uL MPV 9.4 (9.4-12.3) fL Immature Gran % (Auto) 0.6 H (0.0-0.4) % Neut % (Auto) 71.6 (45-73) % Lymph % (Auto) 19.8 L (20-40) % [place] % (Auto) 7.2 (2-11) % Eos % (Auto) 0.4 (0-4) % Baso % (Auto) 0.4 (0-2) % Lymph # (Auto) 2.7 (1.2-4.9) X10*3/uL [place] # (Auto) 1.0 (0.1-1.2) X10*3/uL Eos # (Auto) 0.1 (0.0-0.4) X10*3/uL Baso # (Auto) 0.1 (0.0-0.2) X10*3/uL Abs Immat Gran (auto) 0.08 H (0.00-0.03) X10*3/uL Absolute Neuts (auto) 9.7 H (2.0-8.3) x10*3/uL Absolute Nucleated RBC 0.020 H (0.0-0.012) X10*3/uL Nucleated RBC % (auto) 0.1 (0.0-0.2) /100WBC Sodium 142 (135-145) mmol/L Potassium 3.7 D (3.3-5.1) mmol/L Chloride 100 (96-108) mmol/L Carbon Dioxide 33 H (22-29) mmol/L Anion Gap 13 (12-20) BUN 13 (9-16) mg/dL Creatinine 0.89 (0.5-1.4) mg/dL Estim Creat Clear Calc 85.5 Estimated GFR > 60 Random Glucose 91 (60-115) mg/dL Calcium 9.6 (8.4-10.2) mg/dL Total Bilirubin 0.4 (0.0-1.0) mg/dL AST 10 (5-31) U/L ALT 12 (0-31) U/L Alkaline Phosphatase 47 (39-117) U/L Total Protein 6.7 (6.5-8.0) g/dL Albumin 4.3 (3.5-5.0) g/dL Urine Opiates Screen Not Detected (Not Detect) Ur Buprenorphine Scrn Not Detected (Not Detect) ng/mL Ur Oxycodone Screen Not Detected (Not Detect) ng/mL Urine Methadone Screen Not Detected (Not Detect) ng/mL Urine Fentanyl Screen Not Detected (Not Detect) Ur Barbiturates Screen Not Detected (Not Detect) Ur Phencyclidine Scrn Not Detected (Not Detect) Ur Amphetamines Screen Not Detected (Not Detect) U Benzodiazepines Scrn Not Detected (Not Detect) Urine Cocaine Screen POSITIVE H (Not Detect) U Marijuana (THC) Screen Not Detected (Not Detect) Ethyl Alcohol < 10 mg/dL Discharge Plan Discharge Clinical Impression: Depression with suicidal ideation, Substance abuse, COPD (chronic obstructive pulmonary disease) Patient Disposition: Still a Patient Prescriptions: No Action ropinirole 1 mg Tablet 1 mg PO BEDTIME Qty: 30 0RF olanzapine 10 mg Tablet 10 mg PO BEDTIME Qty: 30 0RF clonidine HCl 0.2 mg Tablet 0.2 mg PO BEDTIME Qty: 30 0RF Protocol: Hold for SBP< HOLD for SBP < : 90 tiotropium bromide [Spiriva with HandiHaler] 18 mcg Capsule, W/Inhalation Device 18 mcg inhalation RDAILY Qty: 20 0RF cetirizine 10 mg Tablet 10 mg PO DAILY PRN (Reason: Allergy Symptoms) melatonin 3 mg Tablet 3 mg PO BEDTIME gabapentin 300 mg capsule 300 mg PO TID cholecalciferol (vitamin D3) [Vitamin D3] 25 mcg (1,000 unit) tablet 25 mcg PO DAILY nystatin 100,000 unit/mL suspension 500,000 unit buccal Q6H 7 Days Qty: 140 0RF Rx Instructions: administer 1/2 of dose in each side of the mouth ferrous sulfate 325 mg (65 mg iron) Tablet 325 mg PO MOWEFR fluticasone propion-salmeterol [Advair HFA] 115-21 mcg/actuation Hfa Aerosol Inhaler 2 puff INHALATION BID pantoprazole 20 mg Tablet,Delayed Release (Dr/Ec) 20 mg PO DAILY Eliquis 5 mg Tablet 5 mg PO BID Qty: 60 0RF prednisone 10 mg tablet See Rx Instructions .Route .COMPLEX Qty: 45 0RF Rx Instructions: 10 mg orally; 5 tabs p.o. daily x3 days; 4 tabs p.o. daily x3 days; 3 tabs daily x3 days; 2 tabs daily x3 days; 1 tab daily x3 days lithium carbonate 450 mg tablet extended release 450 mg PO TID cyanocobalamin (vitamin B-12) [Vitamin B-12] 1,000 mcg tablet 1,000 mcg PO DAILY ipratropium-albuterol 0.5 mg-3 mg(2.5 mg base)/3 mL solution for nebulization 3 ml inhalation RQ6H PRN (Reason: Shortness Of Breath Or Wheezing) Interventions: [place]-Suicide Risk Severity Scale Last Done: 05/25/24 22:22 Print Language: Thai
--- NOTE | 2024-05-26 | ECG_ITS ---
Test Reason : PROLONGED QT? Blood Pressure : / mmHG Vent. Rate : 079 BPM Atrial Rate : 079 BPM P-R Int : 140 ms QRS Dur : 082 ms QT Int : 406 ms P-R-T Axes : 057 032 044 degrees QTc Int : 465 ms Normal sinus rhythm Normal ECG When compared with ECG of 10-MAY-2024 23:47, No significant change was found Referred By: Eddie Wells Electronically Signed By:ALEJANDRO MCCLELLAN
[2024-05-26 06:20] VITALS: BP 121/71; PULSE 75; RESP 14; TEMP 36.6; O2SAT 90
--- NOTE | 2024-05-26 06:39 | PC.NURSE ---
unable to complete med rec at this time. patient is unable to verbalize what she takes for home meds. external med history shows no meds picked up from pharmacy since 2022
--- NOTE | 2024-05-26 06:44 | PC.NURSE ---
pt noted to desat to 86% on O2 3LPM via NC - pt lethargic but arousable. states she wears cpap at night. MD notified. RT also called.
[2024-05-26 07:12] VITALS: PULSE 74; RESP 17; O2SAT 87
--- NOTE | 2024-05-26 07:27 | PHA.MEDREC ---
Pharmacy Consult ? Medication Reconciliation Pharmacy has completed the medication reconciliation. Patient last discharged 05/12/24. Utilized discharge packet to confirm meds.
[2024-05-26] MEDS: Cholecalciferol (Vitamin D3) 25 MCG TABLET PO (09:53)
[2024-05-26] MEDS: predniSONE 10 MG TABLET PO (09:53)
[2024-05-26] MEDS: Apixaban 5 MG TABLET PO (09:53)
[2024-05-26] MEDS: Gabapentin 300 MG CAPSULE PO ×2 (09:54→15:11)
[2024-05-26] MEDS: Lithium Carbonate ER 450 MG TABLET.ER PO ×2 (09:54→15:11)
[2024-05-26] MEDS: Cyanocobalamin (Vitamin B-12) 1,000 MCG TABLET 1000 MCG PO (09:54)
[2024-05-26 09:57] VITALS: BP 132/77; PULSE 77; RESP 20; O2SAT 95
--- NOTE | 2024-05-26 10:05 | PC.NURSE ---
alert speech clear, skin wpd, on o2 at 3lpm and she is on o2 at home at this amt 23/05, denies sob, aware of pending admission and agreeable, watching tv, sitter in place
[2024-05-26 14:20] VITALS: BP 118/78; PULSE 83; RESP 16; TEMP 36.6; O2SAT 92
[2024-05-26 16:56] VITALS: BMI 34.9
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
[2024-05-26 20:20] LABS: ABG Base Excess 11.6 mmol/L; ABG HCO3 42 mmol/L (22-26); ABG pCO2 81 mmHg (32-45); ABG pH 7.32 (7.35-7.45); ABG pO2 73 mmHg (83-108)
--- NOTE | 2024-05-26 20:31 | PC.NURSE ---
rapid response called when patient was minimally responsive to when shadia called and external rub done. SAO2 on 4 l via CPAP between 60-70. CPAP 02 placed at 10. more responsive when CPAP removed and nasal cannula 10 used. patient responded. 02 at 4 L. will be a transfer to ICU.
--- NOTE | 2024-05-26 20:37 | PM.EVENT ---
Event Note Date of Service: 05/26/24 Event Note: senior underwriter informed pt not responsive; hospitalist involved and pt to be transferred to ICu Time Spent With Patient Time: Total time managing care of this patient today ____ minutes.
--- NOTE | 2024-05-26 20:45 | PM.PSYDC ---
DS: Providers Provider Date of Service: 05/26/24 Date of admission: 05/26/24 12:46 Date of discharge: 05/26/24 Primary care physician: Mike Malone MD Attending physician on admission: Howard Shannon Consults: 05/25/24 23:29 Consult to Care Team Stat Comment: Reason for consultation: suicidal ideation Attending physician on discharge: Lamont Damon DS: Medications Discharge Medications Home Medications: Home Medications ?Medication ?Instructions ?Recorded ?Confirmed lithium carbonate 450 mg 450 mg PO TID 05/14/23 05/26/24 tablet,extended release cyanocobalamin (vitamin B-12) 1,000 mcg PO DAILY 06/11/23 05/26/24 1,000 mcg tablet (Vitamin B-12) ipratropium 0.5 mg-albuterol 3 mg 3 ml inhalation RQ6H PRN Shortness 06/11/23 05/26/24 (2.5 mg base)/3 mL nebulization Of Breath Or Wheezing soln cetirizine 10 mg tablet 10 mg PO DAILY PRN Allergy Symptoms 12/19/23 05/26/24 melatonin 3 mg tablet 3 mg PO BEDTIME 12/19/23 05/26/24 cholecalciferol (vitamin D3) 25 25 mcg PO DAILY 02/20/24 05/26/24 mcg (1,000 unit) tablet (Vitamin D3) gabapentin 300 mg capsule 300 mg PO TID 02/20/24 05/26/24 ferrous sulfate 325 mg (65 mg 325 mg PO MOWEFR@0900 05/10/24 05/26/24 iron) tablet fluticasone propionate 115 2 puff inhalation BID 05/10/24 05/26/24 mcg-salmeterol 21 mcg/actuation HFA inhaler (Advair HFA) pantoprazole 20 mg tablet,delayed 20 mg PO DAILY@0630 05/10/24 05/26/24 release prednisone 10 mg tablet See Rx Instructions .Route .COMPLEX 05/26/24 05/26/24 Previous Rx's ?Medication ?Instructions ?Recorded clonidine HCl 0.2 mg tablet 0.2 mg PO BEDTIME #30 tabs 03/22/23 olanzapine 10 mg tablet 10 mg PO BEDTIME #30 tabs 03/22/23 ropinirole 1 mg tablet 1 mg PO BEDTIME #30 tabs 05/23/23 tiotropium bromide 18 mcg capsule 18 mcg inhalation RDAILY #20 03/22/23 with inhalation device (Spiriva inhalations with HandiHaler) apixaban 5 mg tablet (Eliquis) 5 mg PO BID #60 tabs 05/12/24 Data Data Completed and Pending Completed studies during hospitalization [Text1]: 05/25/24 05/26/24 22:53 20:08 WBC 13.6 H RBC 5.29 Hgb 16.3 H Hct 52.2 H MCV 98.7 H MCH 30.8 MCHC 31.2 RDW 14.0 Plt Count 294 D MPV 9.4 Immature Gran % (Auto) 0.6 H Neut % (Auto) 71.6 Lymph % (Auto) 19.8 L [place] % (Auto) 7.2 Eos % (Auto) 0.4 Baso % (Auto) 0.4 Lymph # (Auto) 2.7 [place] # (Auto) 1.0 Eos # (Auto) 0.1 Baso # (Auto) 0.1 Abs Immat Gran (auto) 0.08 H Absolute Neuts (auto) 9.7 H Absolute Nucleated RBC 0.020 H Nucleated RBC % (auto) 0.1 O2 Saturation 95.0 ABG pH at Pt Temp 7.32 L ABG pCO2 at Pt Temp 81 H* ABG pO2 at Pt Temp 73 L ABG HCO3 42 H ABG Base Excess (Actual) 11.6 Sodium 142 Potassium 3.7 D Chloride 100 Carbon Dioxide 33 H Anion Gap 13 BUN 13 Creatinine 0.89 Estim Creat Clear Calc 85.5 Estimated GFR > 60 Random Glucose 91 Calcium 9.6 Total Bilirubin 0.4 AST 10 ALT 12 Alkaline Phosphatase 47 Total Protein 6.7 Albumin 4.3 Urine Opiates Screen Not Detected Ur Buprenorphine Scrn Not Detected Ur Oxycodone Screen Not Detected Urine Methadone Screen Not Detected Urine Fentanyl Screen Not Detected Ur Barbiturates Screen Not Detected Ur Phencyclidine Scrn Not Detected Ur Amphetamines Screen Not Detected U Benzodiazepines Scrn Not Detected Urine Cocaine Screen POSITIVE H U Marijuana (THC) Screen Not Detected Ethyl Alcohol < 10 DS: Summary Hospital Course Hospital Course: 54-year-old female with past medical history significant for pulmonary embolism on Eliquis, COPD on chronic 2 L, obesity, bipolar disorder, PTSD, substance abuse presents for evaluation of suicidal ideation. Patient reports worsening depression over last few days. She reports a plan to jump off a bridge in an attempt to commit suicide She states that she has a lot around her life. She has disagreements with her neighbor. She also reports she has multiple anniversary is of family test coming up in May that also increases her depression Patient reports previous remote SI attempts with opiate overdose She denies any recent SI attempts She does admitting to smoking crack cocaine an hour prior to arrival Patient was admitted 2 weeks ago for acute hypoxic respiratory failure and metabolic encephalopathy. She denies any somatic complaints today 05/26 specifications writer informed pt unresponsive. Rapid Response called and pt transfered to ICU Time spent discussing smoking cessation with patient: 3 to 10 minutes Status at Discharge Functional status at discharge: bed bound Overall status at discharge: patient is not back to baseline Time Spent with Patient Time attestation: Total time managing care of this patient today ____ minutes. Time spent: Less than 30 minutes Discharge Plan Discharge Anticipated Discharge Date/Time: 05/26/24 20:45 Patient Disposition: Xfer Other Discharge Diagnosis: bipolar disorder Referrals: Mike Malone MD [Primary Care Provider] - 1 Week Discharge Medications: Continued ropinirole 1 mg Tablet 1 mg PO BEDTIME Qty: 30 0RF olanzapine 10 mg Tablet 10 mg PO BEDTIME Qty: 30 0RF clonidine HCl 0.2 mg Tablet 0.2 mg PO BEDTIME Qty: 30 0RF Protocol: Hold for SBP< HOLD for SBP < : 90 tiotropium bromide [Spiriva with HandiHaler] 18 mcg Capsule, W/Inhalation Device 18 mcg inhalation RDAILY Qty: 20 0RF cetirizine 10 mg Tablet 10 mg PO DAILY PRN (Reason: Allergy Symptoms) melatonin 3 mg Tablet 3 mg PO BEDTIME gabapentin 300 mg capsule 300 mg PO TID cholecalciferol (vitamin D3) [Vitamin D3] 25 mcg (1,000 unit) tablet 25 mcg PO DAILY ferrous sulfate 325 mg (65 mg iron) Tablet 325 mg PO MOWEFR@0900 fluticasone propion-salmeterol [Advair HFA] 115-21 mcg/actuation Hfa Aerosol Inhaler 2 puff INHALATION BID pantoprazole 20 mg Tablet,Delayed Release (Dr/Ec) 20 mg PO DAILY@0630 Eliquis 5 mg Tablet 5 mg PO BID Qty: 60 0RF lithium carbonate 450 mg tablet extended release 450 mg PO TID cyanocobalamin (vitamin B-12) [Vitamin B-12] 1,000 mcg tablet 1,000 mcg PO DAILY ipratropium-albuterol 0.5 mg-3 mg(2.5 mg base)/3 mL solution for nebulization 3 ml inhalation RQ6H PRN (Reason: Shortness Of Breath Or Wheezing) prednisone 10 mg Tablet See Rx Instructions .ROUTE .COMPLEX Rx Instructions: 10 MG DAILY; LAST DOSE TO GIVE ON: 05/26/24; PART OF TAPER FROM 05/12/24 10 mg orally; 5 tabs p.o. daily x3 days; 4 tabs p.o. daily x3 days; 3 tabs daily x3 days; 2 tabs daily x3 days; 1 tab daily x3 days Discharge Orders: Discharge Order (Routine); Ordered 05/26/24 Ordered By: Lamont Damon Diet: Regular diet Activity on Discharge: As tolerated Stand Alone Forms: Patient Portal Discharge page, Community Support Print Language: Frisian Care Plan Goals: transferred to ICU Health Concerns: transferred to ICU Plan of Treatment: transferred to ICU Assessment: transferred to ICU
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
--- NOTE | 2024-05-27 04:34 | PC.NURSE ---
for 05/26/24 1945-VS assessed 133/64, 89, 18, Sa02 on 4L via CPAP 78-86% and difficult to arouse. rapid response called. 2004 117/58, 80, 79% with 02 at 10L via CPAP. HOB elevated, ABG'S drawn. per respiratory CPAP removed and 02 via nasal cannula utilized at 10L. patient began to yell when ABG's drawn and Sa02 increased to 92%. after review of ABG's patient was admitted to ICU.
== END 2024-05-26 20:51 | disposition other institution (70) | DRG 753 ==
LOC: HO.ED 23:50 → HO.PADLT16 05-26 13:24
PROVIDERS: Admitting Provider Psychiatry & Neurology Psychiatry; Emergency Provider Internal Medicine; PCP Internal Medicine; Visit Provider Psychiatry & Neurology Psychiatry
DX: F31.9 Bipolar disorder, unspecified (principal); R45.851 Suicidal ideations; Z99.81 Dependence on supplemental oxygen; F17.210 Nicotine dependence, cigarettes, uncomplicated; Z71.6 Tobacco abuse counseling; Z91.040 Latex allergy status; Z86.711 Personal history of pulmonary embolism; R55 Syncope and collapse; Z91.51 Personal history of suicidal behavior; Z79.01 Long term (current) use of anticoagulants; Z79.51 Long term (current) use of inhaled steroids; Z79.899 Other long term (current) drug therapy
CPT/HCPCS: 36415; 80053; 80307; 82803; 85025; 92950; 93005; 99285; S9485

== ENCOUNTER → 2024-05-26 09:21 | Outpatient (BNV) | payer MEDICAID, SELFPAY | PROVIDERS: Admitting Provider Psychiatry & Neurology Psychiatry; Emergency Provider Internal Medicine; PCP Internal Medicine; Visit Provider Internal Medicine | DX: Z51.81 Encounter for therapeutic drug level monitoring (principal) | CPT/HCPCS: 93010 ==

== ENCOUNTER → 2024-05-26 12:46 | Outpatient (BNV) | payer OTHER, SELFPAY | PROVIDERS: Admitting Provider Psychiatry & Neurology Psychiatry; Emergency Provider Internal Medicine; PCP Internal Medicine; Visit Provider Psychiatry & Neurology Psychiatry | DX: F60.3 Borderline personality disorder (principal); F31.4 Bipolar disorder, current episode depressed, severe, without psychotic features; F43.11 Post-traumatic stress disorder, acute; J44.9 Chronic obstructive pulmonary disease, unspecified | CPT/HCPCS: 99233; 99499 ==

== ENCOUNTER 2024-05-26 20:54 | Inpatient (IN) | payer MEDICAID, SELFPAY ==
[2024-05-26] VITALS (7 sets, daily range): BP systolic 95–113; BP diastolic 54–68; PULSE 69–75; RESP 19–118; TEMP 36.3; O2SAT 88–93; BMI 43.9
--- NOTE | ~2024-05-26 | XR_ITS ---
EXAMINATION: XR CHEST CLINICAL INFORMATION: Hepatic uptake respiratory failure COMPARISON: Chest x-ray 05/03/2024 TECHNIQUE: Frontal view of the chest was obtained. FINDINGS: Pulmonary vascular congestion. No focal airspace consolidation. No pneumothorax or pleural effusion. Cardiac silhouette within normal limits. Soft tissue structures and osseous structures unremarkable. XR/XR chest 1V IMPRESSION: Mild pulmonary vascular congestion.
--- NOTE | 2024-05-26 21:01 | PM.IMHP ---
History of Present Illness Date of Service: 05/26/24 Attending physician on admission: Chaya Fierro Chief Complaint: Decreased level of consciousness Bhavana Garza is a 54 years old woman with past medical history significant for obstructive sleep apnea, pulmonary embolism on Eliquis, COPD, multiple hospitalization due to respiratory failure and bipolar disorder was admitted under psychiatric service yesterday due to suicidal ideation and plan. Rapid response team was activated because she was found to have decreased level of consciousness and marked low O2 saturation, 70s. All vital signs are stable. On evaluation, patient was very responsive with awakening to sternal rub. Cardiopulmonary exam basically unremarkable. Her CPAP mass measuring was placed on supplemental oxygen via nasal cannula per RT. ABGs stat obtained respiratory acidosis and hypoxemia with a PO2 of 73. Bicarb is 42. Case has been discussed with environmental services aide Dr. Sullivan who said the patient to the ICU for respiratory support with rescue BiPAP. Review of Systems Review of Systems: Yes Unobtainable due to mental status [facility] Medical History Morbid obesity Intentional overdose Acute bronchospasm Bipolar I disorder with depression Overdose on Tylenol Suicide attempt Asthma COPD (chronic obstructive pulmonary disease) Chronic lung disease Neoplasm of parotid gland Depression 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 Drug abuse Bipolar I disorder Post traumatic stress disorder (PTSD) Tobacco use disorder FABIOLA (obstructive sleep apnea) Borderline personality disorder Intermittent explosive disorder Asthma exacerbation in COPD Herpes Tobacco use Bipolar disorder COPD (chronic obstructive pulmonary disease) Family History Mother COPD (chronic obstructive pulmonary disease) Surgical History History of ankle surgery History of back surgery Hx of cholecystectomy History of appendectomy Social History Household Members: None Household Members Other:: So Housing: Apartment Housing Other:: Sleeps on the couch at [facility] house Do you presently have visiting nurse or other home services: No Unable to assess alcohol history related to: Unknown Alcohol intake: former Comment: 1:1sitter Patient Tobacco Use Status: Current someday Tobacco user Tobacco use type: Cigarette Cigarette Packs Per Day: 1 Cigarettes Per Day: 20.0 Years Smoked: 20 e-Cigarette/Vaping Use: Currently Using Second Hand Smoke Exposure: No Substance Use Type: Crack/Cocaine Advance Directives: Yes Advance Directives on File: Yes Advance Directives Date on File: 06/17/22 service: No Current occupational status: unemployed and disabled Sexual orientation: Straight/Heterosexual Meds Allergies Allergy/AdvReac Type Severity Reaction Status Date / Time aspirin Allergy Mild Anaphylaxis Verified 05/25/24 22:21 ampicillin Allergy Rash Verified 05/25/24 22:21 Penicillins Allergy Anaphylaxis Verified 05/25/24 22:21 latex AdvReac Rash Verified 05/25/24 22:21 Latex, Natural Rubber AdvReac Rash Verified 05/25/24 22:21 seafood AdvReac Anaphylaxis Verified 05/25/24 22:21 Sulfa (Sulfonamide AdvReac Hives Verified 05/25/24 22:21 Antibiotics) Active Medications: Current Medications Sodium Chloride (0.9 % Sodium Chloride Flush 3 Ml Syringe) 3 ml IVFLUSH [facility] Home Medications ?Medication ?Instructions ?Recorded ?Confirmed ?Last Taken ?Type lithium carbonate 450 mg 450 mg PO TID 05/14/23 05/26/24 03/16/24 History tablet,extended release cyanocobalamin (vitamin B-12) 1,000 mcg PO DAILY 06/11/23 05/26/24 03/16/24 History 1,000 mcg tablet (Vitamin B-12) ipratropium 0.5 mg-albuterol 3 mg 3 ml inhalation RQ6H PRN Shortness 06/11/23 05/26/24 10/23/23 History (2.5 mg base)/3 mL nebulization Of Breath Or Wheezing soln cetirizine 10 mg tablet 10 mg PO DAILY PRN Allergy Symptoms 12/19/23 05/26/24 Unknown History melatonin 3 mg tablet 3 mg PO BEDTIME 12/19/23 05/26/24 03/16/24 History cholecalciferol (vitamin D3) 25 25 mcg PO DAILY 02/20/24 05/26/24 03/16/24 History mcg (1,000 unit) tablet (Vitamin D3) gabapentin 300 mg capsule 300 mg PO TID 02/20/24 05/26/24 03/16/24 History ferrous sulfate 325 mg (65 mg 325 mg PO MOWEFR@0900 05/10/24 05/26/24 Unknown History iron) tablet fluticasone propionate 115 2 puff inhalation BID 05/10/24 05/26/24 Unknown History mcg-salmeterol 21 mcg/actuation HFA inhaler (Advair HFA) pantoprazole 20 mg tablet,delayed 20 mg PO DAILY@0630 05/10/24 05/26/24 Unknown History release prednisone 10 mg tablet See Rx Instructions .Route .COMPLEX 05/26/24 05/26/24 Unknown History Physical Exam Vital Signs and Narrative: Constitutional - Obtunded. Obese. NC in place HEENT - Atraumatic head. Heart - S1S2, RRR, No murmurs. Lungs - Normal lung expansion, Normal respiratory effort, No respiratory distress.Tachypnea. Clear lungs. Abdomen - ND. Extremities - no calf tenderness bilaterally, no swelling Musculoskeletal - Normal inspection, normal ROM Skin - Warm/Dry Neurological - Obtunded. Assessment and Plan (1) Hypercapnic respiratory failure: Qualifiers: Chronicity: acute on chronic Qualified Code(s): J96.22 - Acute and chronic respiratory failure with hypercapnia Status: Acute (2) Hypoxia: Status: Acute Plan Bhavana Garza is a 54 y/o woman admitted with: Hypercapnic and hypoxic respiratory failure, likely secondary to sedatives (recently received tx with gabapentin) in the setting of underlying obstructive sleep apnea/obesity hypoventilatory syndrome and COPD. Admit to ICU. NPO. Aspiration precautions. Respiratory support with BiPAP. Start management with IV antibiotics and bronchodilator therapy. Check CXR and labs: CBC, CMP, BNP. Acute metabolic encephalopathy secondary to above. Aspiration precautions. History of PE. Continue Eliquis when able. Bipolar disorder. Psychiatric meds and hold due to decreased level of consciousness. Obesity. Will need education about weight loss and lifestyle changes. Cocaine use. Additional medicine consult. Code status: Full DVT prophylaxis: Eliquis Patient will need hospitalization for at least 2 midnights for hypercapnic hypoxic respiratory failure treatment with respiratory support, IV steroids, bronchodilator therapy, close monitoring of vital signs and neurological status. Quality Stroke Does the patient have a stroke diagnosis?: No VTE Prior VTE?: No VTE Risk Level:: Medical - moderate - high VTE Device Contraindication: Treatment Not Indicated VTE Drug Contraindication: N/A - Med Ordered
--- OUTSIDE RECORDS SUMMARY | 2024-05-26 21:01 | XMS_ITS ---
Author Organization [facility] Address [address] [place], [place] [id number] Care Team Providers Care Automation Tech Name Role Phone Mkie Malone Primary Care Provider [phone] REASON FOR VISIT [facility] Home Health Aide name Encounters Encounter Location Date Provider Diagnosis [id number] [place], [place] [id number] 05/23/2024 Mike Malone PLAN OF TREATMENT Next Appt Details Provider Name:Jessika Altamirano, 07/05/2024 10:00:00 AM, [address] [place] [address] [facility] [place], [place], [phone], Provider Name:Mike Malone, 07/19/2024 02:30:00 PM, [address] [place] [address], [phone],
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
--- OUTSIDE RECORDS SUMMARY | 2024-05-26 21:01 | XMS_ITS ---
Author Organization [facility] Address [address] [place] [id number] Care Team Providers Care Peer Counselor Name Role Phone Mike Malone Primary Care Provider REASON FOR VISIT therapy appt Encounters Encounter Location Date Provider Diagnosis [address] [id number] 05/24/2024 Mike Malone PLAN OF TREATMENT Next Appt Details Provider Name:Jessika Altamirano, 07/05/2024 10:00:00 AM, [address] [place] [address] [facility], [place], [place], [id number], Provider Name:Mike Malone, 07/19/2024 02:30:00 PM, [address] [place] [address], [phone],
--- OUTSIDE RECORDS SUMMARY | 2024-05-26 21:02 | XMS_ITS | Patient Health Record ---
Author Organization [facility] Address [address], [place] [id number] Care Team Providers Care [facility] Manager Name Role Phone Mike Malone Primary Care Provider Jessika Altamirano Unavailable [phone] Juanita Todd Unavailable [phone] ALLERGIES Allergen (clinical drug ingredient) Drug/Non Drug Allergy documented on EMR Reaction Allergy Type Onset Date Status aspirin aspirin anaphylaxis Drug Allergy Activ e penicillin anaphylaxis Drug Allergy Acti ve diphenhydramine Benadryl anaphylaxis Drug Allergy Active bee sting (uncoded) anaphylaxis Allergy Active Sulfa anaphylaxis Drug Allergy Activ e levofloxacin levoFLOXacin hives Drug Allergy A ctive tramadol traMADol hives Drug Allergy Active RESULTS Component Value Reference Range Notes LITHIUM Reviewed date:06/09/2023 09:06:17 AM Interpretation:Low Performing Lab:NL2, [facility] Luiza Vasquez Notes/Report: NON-FASTING LITHIUM 0.4 0.6-1.2 mmol/L CT Neck W Reviewed date:09/05/2023 11:23:35 PM Interpretation:unchanged Performing Lab: Notes/Report: unchanged LIPID PANEL Reviewed date:11/11/2023 12:13:34 PM Interpretation:LDL 110: TG 152 Performing Lab:MOOKIE2, [facility] Luiza Vasquez Notes/Report: NON-FASTING NON-FASTING NON-FASTING NON-FASTING CHOLESTEROL, TOTAL 188 <200 mg/dL HDL CHOLESTEROL 51 > OR = 50 mg/dL TRIGLYCERIDES 152 <150 mg/dL LDL-CHOLESTEROL 110 Reference range: <100 Desirable range <100 mg/dL for primary prevention; <70 mg/dL for patients with CHD or diabetic patients with > or = 2 CHD risk factors. LDL-C is now calculated using the Donna calculation, which is a validated novel method providing better accuracy than the Friedewald equation in the estimation of LDL-C. Bean BLAIR et al. PATTIE. 2013;310(19): 9830-5850 (http://education.[employer].Medxnote/faq/FAQ16 4) CHOL/HDLC RATIO 3.7 <5.0 (calc) NON HDL CHOLESTEROL 137 <130 mg/dL (calc) For patients with diabetes plus 1 major ASCVD risk factor, treating to a non-HDL-C goal of <100 mg/dL (LDL-C of <70 mg/dL) is considered a therapeutic option. COMPREHENSIVE METABOLIC PANE L[employer] Reviewed date:11/10/2023 03:51:23 PM Interpretation:Normal Performing Lab:NL2, [facility] [address] [place], [place] [id number] Luiza Vasquez Notes/Report: NON-FASTING NON-FASTING NON-FASTING NON-FASTING GLUCOSE 99 65-99 mg/dL Fasting reference interval UREA NITROGEN (BUN) 18 7-25 mg/dL CREATININE 0.68 0.50-1.03 mg/dL EGFR 105 > OR = 60 mL/min/1.73m2 BUN/CREATININE RATIO SEE NOTE: 6-22 (calc) Not Reported: BUN and Creatinine are within reference range. SODIUM 139 135-146 mmol/L POTASSIUM 4.7 3.5-5.3 mmol/L CHLORIDE 102 98-110 mmol/L CARBON DIOXIDE 30 20-32 mmol/L CALCIUM 10.0 8.6-10.4 mg/dL PROTEIN, TOTAL 6.9 6.1-8.1 g/dL ALBUMIN 4.4 3.6-5.1 g/dL GLOBULIN 2.5 1.9-3.7 g/dL (calc) ALBUMIN/GLOBULIN RATIO 1.8 1.0-2.5 (calc) BILIRUBIN, TOTAL 0.3 0.2-1.2 mg/dL ALKALINE PHOSPHATASE 65 37-153 U/L AST 12 10-35 U/L ALT 16 6-29 U/L TSH W/REFLEX TO FT4 Reviewed date:11/10/2023 03:50:36 PM Interpretation:Normal Performing Lab:NL2, [facility] Luiza Vasquez Notes/Report: NON-FASTING NON-FASTING NON-FASTING NON-FASTING TSH W/REFLEX TO FT4 2.35 Reference Range > or = 20 Years 0.40-4.50 Ranges First trimester 0.26-2.66 Second trimester 0.55-2.73 Third trimester 0.43-2.91 LITHIUM Reviewed date:11/11/2023 08:06:20 AM Interpretation:Abnormal Performing Lab:NL2, [facility] [facility] Luiza Vasquez Notes/Report: NON-FASTING NON-FASTING NON-FASTING NON-FASTING LITHIUM 1.4 0.6-1.2 mmol/L CBC Reviewed date:06/18/2023 09:49:17 AM Interpretation:Normal Performing Lab: Notes/Report: Normal HEMATOCRIT 46 HEMOGLOBIN 14.3 MCH MCHC MCV 101 MEAN PLATELET VOLUME NRBC # AUTO DIFF NRBC % AUTO DIFF PLT COUNT 267 RBC RDW WBC 11.1 TSH Reviewed date:06/18/2023 09:49:57 AM Interpretation:Normal Performing Lab: Notes/Report: Normal TSH 2.38 COMPREHENSIVE METABOLIC PANE L Reviewed date:06/18/2023 09:51:40 AM Interpretation:Normal Performing Lab: Notes/Report: Normal ALBUMIN 4.5 ALK PHOS 79 SGPT 14 ANION GAP SGOT 17 BILI,TOTAL <0.2 BUN 16 CALCIUM 9.8 CHLORIDE 103 CO2 24 CREAT 0.6 GLOMERULAR FILTRATION RATE GLUCOSE 96 POTASSIUM 4.6 SODIUM 140 TOTAL PROTEIN 6.7 LITHIUM Reviewed date:06/18/2023 09:52:28 AM Interpretation:Low Performing Lab: Notes/Report: Low LITHIUM <0.3 CR Chest PORTABLE Reviewed date:06/18/2023 09:54:28 AM Interpretation:Normal Performing Lab: Notes/Report: Normal CBC Reviewed date:01/06/2024 09:15:08 PM Interpretation:Hgb 16.3 Performing Lab: Notes/Report: Hgb 16.3 HEMATOCRIT 51 HEMOGLOBIN 16.3 MCH MCHC MCV 94 MEAN PLATELET VOLUME NRBC # AUTO DIFF NRBC % AUTO DIFF PLT COUNT 370 RBC RDW WBC 11.3 COMPREHENSIVE METABOLIC PANE L Reviewed date:01/06/2024 09:16:54 PM Interpretation:Ca 10.6; CO2 33 Performing Lab: Notes/Report: Ca 10.6; CO2 33 ALBUMIN 4.3 ALK PHOS 65 SGPT 15 ANION GAP SGOT 9 BILI,TOTAL 0.2 BUN 9 CALCIUM 10.6 CHLORIDE 102 CO2 33 CREAT 0.7 GLOMERULAR FILTRATION RATE GLUCOSE 121 POTASSIUM 4.1 SODIUM 139 TOTAL PROTEIN 7.1 LIPID PANEL Reviewed date:01/06/2024 09:18:01 PM Interpretation:TG 280 Performing Lab: Notes/Report: TG 280 X TRIGLYCERIDES 280 CHOLESTEROL, TOTAL 166 HDL CHOLESTEROL 54 LDL-CHOLESTEROL 56 CHOL/HDLC RATIO NON HDL CHOLESTEROL CBC Reviewed date:02/07/2024 08:36:13 PM Interpretation:Normal Performing Lab: Notes/Report: Normal HEMATOCRIT 49 HEMOGLOBIN 15.8 MCH MCHC MCV 95 MEAN PLATELET VOLUME NRBC # AUTO DIFF NRBC % AUTO DIFF PLT COUNT 257 RBC RDW WBC 10.3 COMPREHENSIVE METABOLIC PANE L Reviewed date:02/07/2024 08:37:42 PM Interpretation:Normal Performing Lab: Notes/Report: Normal ALBUMIN 4.5 ALK PHOS 80 SGPT 12 ANION GAP SGOT 11 BILI,TOTAL 0.7 BUN 11 CALCIUM 9.8 CHLORIDE 102 CO2 26 CREAT 0.6 GLOMERULAR FILTRATION RATE GLUCOSE 81 POTASSIUM 3.7 SODIUM [address] Angio: chest with contras t Reviewed date:02/08/2024 09:35:29 PM Interpretation:Positive Performing Lab: Notes/Report: Positive ABG, CO-OX AND LACTATE Reviewed date:02/09/2024 11:12:26 PM Interpretation:Abnormal Performing Lab: Notes/Report: Abnormal ARTERIAL AAGR ARTERIAL BASE EXCESS ARTERIAL PCO2 58 ARTERIAL COHB ARTERIAL HGB ARTERIAL HCO3 32 ARTERIAL METHB ARTERIAL PO2 67 ARTERIAL O2HB ARTERIAL PH 7.35 COLLECTION TIME BLOOD GAS COMMENT BGFIO2 BG FLOW RATE LACTATE BG MODE BG NOTIFY METHOD BG NOTIFIED TIME BG CRITICAL CALLED TO BG PEEP/CPAP BG PIP BG PS LEVEL BG RESPIRATION RATE BG SAMPLE SITE BG TIDAL VOLUME US Doppler Limited Study Reviewed date:02/11/2024 04:05:31 PM Interpretation:Negative Performing Lab: Notes/Report: Negative CBC Reviewed date:02/11/2024 04:06:28 PM Interpretation:Normal Performing Lab: Notes/Report: Normal HEMATOCRIT 47 HEMOGLOBIN 15.0 MCH MCHC MCV 97 MEAN PLATELET VOLUME NRBC # AUTO DIFF NRBC % AUTO DIFF PLT COUNT 298 RBC RDW WBC 10.8 COMPREHENSIVE METABOLIC PANE L Reviewed date:02/11/2024 04:07:54 PM Interpretation:Glu 126 Performing Lab: Notes/Report: Glu 126 ALBUMIN 4.1 ALK PHOS 76 SGPT 14 ANION GAP SGOT 10 BILI,TOTAL 0.2 BUN 9 CALCIUM 9.9 CHLORIDE 100 CO2 31 CREAT 0.7 GLOMERULAR FILTRATION RATE GLUCOSE 126 POTASSIUM 4.1 SODIUM 140 TOTAL PROTEIN 6.0 CR Chest Routine 2 Views Reviewed date:02/11/2024 04:08:48 PM Interpretation:Negative Performing Lab: Notes/Report: Negative COMPREHENSIVE METABOLIC PANE L Reviewed date:02/15/2024 08:49:47 AM Interpretation:Normal Performing Lab: Notes/Report: Normal ALBUMIN 4.2 ALK PHOS 57 SGPT 14 ANION GAP SGOT 10 BILI,TOTAL 0.3 BUN 9 CALCIUM 10.0 CHLORIDE 102 CO2 28 CREAT 0.8 GLOMERULAR FILTRATION RATE GLUCOSE 124 POTASSIUM ?? SODIUM ?? TOTAL PROTEIN 6.9 CR Chest Routine 2 Views Reviewed date:02/15/2024 08:50:37 AM Interpretation:Abnormal Performing Lab: Notes/Report: Abnormal CBC Reviewed date:02/28/2024 05:31:27 PM Interpretation:Normal Performing Lab: Notes/Report: Normal HEMATOCRIT 44 HEMOGLOBIN 14.2 MCH MCHC MCV 99 MEAN PLATELET VOLUME NRBC # AUTO DIFF NRBC % AUTO DIFF PLT COUNT 270 RBC RDW WBC 9.7 COMPREHENSIVE METABOLIC PANE L Reviewed date:02/28/2024 05:33:20 PM Interpretation:Normal Performing Lab: Notes/Report: Normal ALBUMIN 4.1 ALK PHOS 51 SGPT 11 ANION GAP SGOT 9 BILI,TOTAL 0.3 BUN 11 CALCIUM 10.1 CHLORIDE 100 CO2 29 CREAT 0.7 GLOMERULAR FILTRATION RATE GLUCOSE 139 POTASSIUM 4.7 SODIUM [address] Brain WO Reviewed date:03/06/2024 10:56:40 PM Interpretation:Negative Performing Lab: Notes/Report: Negative CT Angio: chest with contras t Reviewed date:03/06/2024 10:57:55 PM Interpretation:Abnormal Performing Lab: Notes/Report: Abnormal CR Chest Routine 2 Views Reviewed date:03/06/2024 10:58:39 PM Interpretation:Negative Performing Lab: Notes/Report: Negative CBC Reviewed date:03/06/2024 11:00:42 PM Interpretation:MCV 102 Performing Lab: Notes/Report: MCV 102 HEMATOCRIT 42 HEMOGLOBIN 12.9 MCH MCHC MCV 102 MEAN PLATELET VOLUME NRBC # AUTO DIFF NRBC % AUTO DIFF PLT COUNT 214 RBC RDW WBC 8.5 BASIC METABOLIC PANEL Reviewed date:03/06/2024 11:01:47 PM Interpretation:Normal Performing Lab: Notes/Report: Normal GLUCOSE 98 UREA NITROGEN (BUN) 14 CREATININE 0.7 eGFR NON-AFR. GUINEAN eGFR BUN/CREATININE RATIO SODIUM 139 POTASSIUM 4.0 CHLORIDE 97 CARBON DIOXIDE 32 CALCIUM 8.7 EGFR BASIC METABOLIC PANEL Reviewed date:04/04/2024 02:33:45 PM Interpretation:CO2 32 Performing Lab: Notes/Report: CO2 32 GLUCOSE 102 UREA NITROGEN (BUN) 10 CREATININE 0.7 eGFR NON-AFR. GUINEAN eGFR BUN/CREATININE RATIO SODIUM 142 POTASSIUM 4.1 CHLORIDE 103 CARBON DIOXIDE 32 CALCIUM 10.2 EGFR CBC Reviewed date:04/04/2024 02:34:53 PM Interpretation:Normal Performing Lab: Notes/Report: Normal HEMATOCRIT 45 HEMOGLOBIN 14.3 MCH MCHC MCV 100 MEAN PLATELET VOLUME NRBC # AUTO DIFF NRBC % AUTO DIFF PLT COUNT [address] WBC 9.1 CT Brain WO Reviewed date:04/05/2024 02:12:30 PM Interpretation:Negative Performing Lab: Notes/Report: Negative CBC Reviewed date:04/17/2024 01:44:18 PM Interpretation:Normal Performing Lab: Notes/Report: Normal HEMATOCRIT 46 HEMOGLOBIN 14.5 MCH MCHC MCV 99 MEAN PLATELET VOLUME NRBC # AUTO DIFF NRBC % AUTO DIFF PLT COUNT 239 RBC RDW WBC 7.4 COMPREHENSIVE METABOLIC PANE L Reviewed date:04/17/2024 01:45:52 PM Interpretation:TC02 34 Performing Lab: Notes/Report: TC02 34 ALBUMIN 4.4 ALK PHOS 73 SGPT 10 ANION GAP SGOT 15 BILI,TOTAL 0.3 BUN 7 CALCIUM 10.2 CHLORIDE 101 CO2 34 CREAT 0.7 GLOMERULAR FILTRATION RATE GLUCOSE 113 POTASSIUM 4.0 SODIUM 142 TOTAL PROTEIN 7.3 REASON FOR REFERRAL Reason [facility] one: [phone], Fax: [phone] Med management/halfway services/Controlled meds Diagnosis 1 Fibromyalgia (M79.7) Diagnosis 2 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 Rn will call Kam to have them contact kathryn. Kam transferred me to daniel got a [employer] left message for them to contact kathryn at [phone] and to contact us if they have any further questions. Miquel also made aware of situation. Referral Priority Routine Reason To [facility] [address] [facility], x12 months x 3 monthly Referral Organization [facility] Referring Provider First Name Mike Referring Provider Last Name Kira Referring Provider Speciality Internal edicine Referred Provider PT1, Request Referral Priority Routine Reason To [address] [facility] ( [place] testing, Dr. Anna) x 12 months x 2 monthly Referral Organization [facility] Referring Provider First Name Mike Referring Provider Last Name Kira Referring Provider Speciality Internal edicine Referred Provider PT1, Request Referral Priority Routine Reason To [facility] [address], x12 months x 2 monthly Referral Organization [facility] Referring Provider First Name Mike Referring Provider Last Name Kira [facility] Referred Provider PT1, Request Referral Priority Routine Reason To [facility], [address] x 12 months x 2 monthly Referral Organization [facility] Referring Provider First Name Mike Referring Provider Last Name Kira Referring Provider [facility] edicine Referred Provider PT1, Request Referral Priority Routine Reason [facility] dental routine exam, hasn't had dentures in a long time needs new ones Diagnosis 1 Sheltered homelessne ss (Z59.01) Referral Organization [facility] Referring Provider First Name Mike Referring Provider Last Name Kira Referring Provider [facility] Internal edicine Referred Provider [facility], . Referral Priority Routine Reason Bipoalr and serious cocaine problem. She has been asking for recovery assistant for a while Referral Organization [facility] Referring Provider First Name Mike Referring Provider Last Name Kira Referring Provider [facility] edicine Referred Provider Specialty Addiction Me dicine General Notes Flavia Salguero 02:53:34 PM > will be calling the client today Referral Priority Routine Reason [facility] BP Cuff Diagnosis 1 Hypotension, unspeci fied (I95.9) Referral Organization [facility] Referring Provider First Name Mike Referring Provider Last Name Kira Referring Provider [facility] Referred Provider [facility] [employer] General Notes Karely Tirado 11/22/2023 03:14:18 PM > faxed to linda Referral Priority Routine Reason Linda Wa lker repairs Referral Organization [facility] Referring Provider First Name Mike Referring Provider Last Name Kira Referring Provider [facility] Internal edicine Referred Provider Jordy Smith Medical Equipment General Notes Karely Tirado 01/11/2024 10:04:00 AM >Pt spoke with linda it will be $25 per wheel to replace Referral Priority Routine Reason Linda Pu ll ups size large 6/day with 5 rf Diagnosis 1 Unspecified urinary incontinence (R32) Referral Organization [facility] Referring Provider First Name Mike Referring Provider Last Name Kira Referring Provider [facility] Internal edicine General Notes Karely Tirado 01/11/2024 10:03:44 AM > rx and referral faxed to Celestino mckeon Katelyn 02/08/2024 10:20:14 AM > additonal medical paperwork needs completion linda was faxing it to the wrong number, gave them the correct number awaiting paperwork to complete for [employer] to be faxed to us, Karely Tirado 02/08/2024 11:01:02 AM > additional medical necessity form completed and faxed back, Karely Tirado 03/07/2024 09:46:51 AM > pt still has not received called linda and refaxed medical necessity paperwork, Karely Tirado 04/03/2024 09:01:17 AM > physically dropped off [facility] paperwork to linda to submit for insurance auth, Karely Tirado 05/22/2024 01:29:53 PM > per pt she received them Referral Priority Routine Reason [facility] uate for mobility and scooter or similar need Diagnosis 1 Obstructive sleep ap nika (adult) (pediatric) (G47.33) Referral Organization [facility] Referring Provider First Name Mike Referring Provider Last Name Kira Referring Provider Speciality Internal M edicine Referred Provider [facility] Referred Provider Specialty Physiotherap y General Notes Rebekah Atkinson 02:53:28 PM > faxed notes to faxed [phone], phone # [phone],, Rebekah Atkinson 03/05/2024 10:37:26 AM > pt nos to 02/06 apptKira Andrew 03/05/2024 05:48:13 PM >Please Celestino Edwards Katelyn 05/01/2024 11:12:50 AM > TE sent to Inessa to see if pt is still interested or if she has r/sCelestino Katelyn 05/22/2024 01:44:03 PM > left vm with rehab office pending call back with appt Referral Priority Routine Reason Linda Ca ne - (1-point) #1 Diagnosis 1 Chronic obstructive pulmonary disease, unspecified (J44.9) Diagnosis 2 Difficulty in walkin g, not elsewhere classified (R26.2) Referral Organization [facility] Referring Provider First Name Mike Referring Provider Last Name Kira Referring Provider Speciality Internal M edicine Referred Provider Jordy Smith Medical Equipment General Notes Karely Tirado 01/23/2024 10:50:14 AM > faxed to Celestino mckeon Katelyn 02/08/2024 10:19:50 AM > informed miquel who has contacted [facility] worker to picking tech cane Referral Priority Routine MEDICATIONS Medication SIG (Take, Route, Frequency, Duration) Notes Start Date End Date Status melatonin 3 mg 1 tab(s) orally once a day (at bedtime) as needed for sleep for 28 days Active olanzapine 10 mg one tab orally night ly at bedtime for 28 days Active Spiriva HandiHaler 18 mcg 1 cap(s) inhaled once a day for 30 days Active lithium 450 mg 1 tab(s) orally 3 ti mes a day for 28 days Active clonidine 0.2 mg 1 tab(s) orally nigh tly at bedtime for 28 days Active rOPINIRole 1 mg 1 tab(s) orally nigh tly at bedtime for 28 days Active valACYclovir 500 mg 1 tab(s) orally once a day for 10 days Active Gabapentin 400 mg 1 cap(s) orally 3 ti mes a day for 30 days Active Ferrous Sulfate 325 mg 1 tablet by mouth every Mon, Wed, Fri for 30 days Active Advair HFA 115 mcg-21 mcg INHALE 2 PUFFS BY MOUTH TWICE A DAY for 30 Active doxycycline hyclate 100 mg 1 cap(s) orally 2 times a day for 7 days 03/27/2024 Active Nicoderm C-Q Clear 14 mg/24 hr 1 PATCH transdermally once a day Not-Taking docusate sodium 100 mg 1-2 caps orally 2 times a day as needed for constipation Active pantoprazole 40 mg 1 tab(s) orally once a day for 30 days Active Nicorette 2 mg 1 GUM chewed every 2 hours for 30 days Active Vitamin B-12 1000 mcg TAKE 1 TABLET BY M OUT ONCE DAILY for 30 Active All Day Allergy (Cetirizine) 10 mg TAKE 1 TABLET BY MOUTH DAILY for 30 days Active guaiFENesin 100 mg/5 mL 10 mL orally tammie ry 4 hours for 7 days 05/22/2024 Active Imodium 2 mg 1 cap(s) orally ever y 6 hours for 5 days 01/13/2024 Active albuterol 2.5 mg/3 mL (0.083%) 3 mL by nebulizer every 6 hours for 30 days Active Albuterol (Eqv-ProAir HFA) 90 mcg/inh 2 puff(s) inhaled every 4 hours PRN Active Rollator 4wh+hndbrk Donal [id number], 1 10/13/2022 Active IMMUNIZATIONS Vaccine Route Administration Date Status Comme nts Influenza Unknown 08/25/2021 Administered [place] COVID-19 Vaccine Unknown 06/24/2021 Administere d PPSV 23 Unknown 11/29/2018 Administered Tdap Unknown 04/17/2015 Administered Moderna Covid-19 Booster Administration - Third Dose (Single Dose 50 mcg/0.25 mL Unknown 12/08/2021 Administered Influenza IM Intramuscular 09/18/2022 Administered Influenza IM Intramuscular 11/08/2023 Administered Afluria Unknown 07/22/2014 Administered Flu-IIV4, p-free Unknown 11/27/2020 Administered Flu-IIV4, p-free Unknown 11/29/2018 Administered Flu-IIV4, p-free Unknown 10/10/2020 Administered Flu-IIV4, p-free Unknown 08/25/2021 Administered Flu-IIV4, p-free Unknown 10/29/2017 Administered Flu-IIV4, p-free Unknown 07/20/2023 Administered Flu-IIV4, p-free Unknown 08/02/2019 Administered SOCIAL HISTORY Tobacco Use: Social History Observation Description Date Details (start date - stop date) Former Smoker NA - NA Sex Assigned At : Social History Observation Description Sex Assigned At Unknown Tobacco Use Assessment MU Question Answer Notes What is your current smoking status? former smok er How long has it been since you last smoked? 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 confirmed Malignant tumor of parotid gland (753090677) Problem Morbid (severe) obesity due to excess calories (E66.01) Active confirmed Morbid obesity (disorder) (277498805) Problem Cocaine abuse, uncomplicated (F14.10) Active confirmed Cocaine abuse (57272809) Problem Nicotine dependence, unspecified, uncomplicated (F17.200) Active confirmed Tobacco user (183935830) Problem Bipolar disorder, current episode mixed, moderate (F31.62) Active confirmed Mixed bipolar affective disorder, moderate (921360150) Problem Post-traumatic stress disorder, chronic (F43.12) Active confirmed Posttraumat ic stress disorder (34947884) Problem Insomnia due to other mental disorder (F51.05) Active confirmed Insomnia disorder related to another mental disorder (41144230) Problem Borderline personality disorder (F60.3) Active confirmed Borderline personality disorder (68008084) Problem 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 confirmed Problem Restless legs syndrome (G25.81) Active confirmed Restless legs syndrome (52464805) Problem Obstructive sleep apnea (adult) (pediatric) (G47.33) Active confirmed Obstructive sleep apnea syndrome (disorder) (56885679) Problem Chronic obstructive pulmonary disease, unspecified (J44.9) Active confirmed Chronic obstructive pulmonary disease (38177788) Problem Severe persistent asthma with (acute) exacerbation (J45.51) Active confirmed Acute severe exacerbation of severe persistent asthma (577011336) Problem Fibromyalgia (M79.7) Active confirmed Fibromyalgia (402981971) Problem 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 STOP Trileptal Problem Atypical squamous cells of undetermined significance on cytologic smear of cervix (ASC-US) (R87.610) Active confirmed Atypical squamous cells of undetermined significance on cervical Papanicolaou smear (826156003) Problem Dependence on supplemental oxygen (Z99.81) Active confirmed Dependence o n supplemental oxygen (897164638747) Problem Body mass index [BMI] 45.0-49.9, adult (Z68.42) Active confirmed Body mass ind ex 40+ - severely obese (568731598) Problem Sheltered homelessness (Z59.01) Active confirmed Sheltered homelessness (75707280266503 0) VITAL SIGNS Temperature 96.9 degrees Fahrenheit 05/22/2024 Pt o n 3L of O2 via NC Blood pressure diastolic 75 05/22/2024 Pt on 3L of O2 via NC Oximetry 92 05/22/2024 Pt on 3L of O2 via NC Height 65.5 in 05/24/2024 Telehealth Gerhard o only, unable to obtain VS Blood pressure systolic 114 05/22/2024 Pt o n 3L of O2 via NC Weight 279 lbs 05/22/2024 Pt on 3L of O2 via NC BMI 45.72 kg/m2 05/22/2024 Pt on 3L of O2 via NC PROCEDURES Procedure Date Ordered Date Performed Result Body Sit e Pulmonary Function Test 01/10/2024 N/A SLEEP STUDY, ATTENDED 01/10/2024 04/04/24 EKG 12/28/2023 12/28/[address] EKG 02/03/2024 02/03/2024 Negative EEG 03/02/2024 03/02/2024 abnormal EKG 03/01/2024 03/01/2024 Negative Encounters Encounter Location Date Provider Diagnosis [address] [id number] [facility] [address] [id number] 07/07/2023 Jessika Altamirano Bipolar disorder, current episode mixed, moderate F31.62 ; 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 ; Malignant neoplasm of parotid gland C07 ; Obstructive sleep apnea (adult) (pediatric) G47.33 ; Nicotine dependence, unspecified, uncomplicated F17.200 and Encounter for screening for infectious and parasitic diseases, unspecified Z11.[address] [id number] 07/[facility] [address] [id number] 07/21/2023 Jessika Altamirano Encounter for screening for infectious and parasitic diseases, unspecified Z11.[address] [id number] 08/18/2023 Jessika Altamirano Encounter for screening for COVID-19 [address]11[address] [id number] 09/01/2023 Jessika Altamirano Encounter for screening for COVID-19 Z11.52 and Sheltered homelessness Z59.01 [facility] [address] [place] [address] [place] [id number] 09/29/2023 Juanita Todd [facility] [address] [place] [address] [place], [place] [id number] 10/04/2023 Mike Malone [facility] [address] [id number] 10/13/2023 Jessika Altamirano Encounter for screening for COVID-19 Z11.52 and Sheltered homelessness Z59.01 [facility] [address] [place] [address] [place], [place] [id number] 01/05/2024 Jessika Altamirano Encounter for screening for COVID-19 Z11.52 [facility] [address] [place] [address] [place], [place] [id number] 01/12/2024 Jessika Altamirano [facility] [address] [id number] 02/21/2024 Mike Maloen Encounter for screening for COVID-19 Z11.52 [facility] [address] [place] [address] [place] [id number] 02/21/2024 Jessika Altamirano Encounter for screening for COVID-19 Z11.52 [facility] [address] [place] [address] [place] [id number] 03/01/2024 Jessika Altamirano [facility] [address] [id number] 03/22/2024 Mike Malone [facility] [address] [place] [address] [place] [id number] 03/29/2024 Jessika Altamirano Encounter for screening for COVID-19 Z11.52 [facility] [address] [id number] 06/07/2023 Mike Malone Bipolar disorder, current episode mixed, moderate F31.62 ; Malignant neoplasm of parotid gland C07 ; Encounter for screening for infectious and parasitic diseases, unspecified Z11.9 ; Sheltered homelessness Z59.01 ; Candidiasis, unspecified B37.9 ; Chronic obstructive pulmonary disease, unspecified J44.9 and Obstructive sleep apnea (adult) (pediatric) G47.33 [facility] [address] [id number] 06/30/2023 Mike Malone Encounter for screening for infectious and parasitic diseases, unspecified Z11.9 ; Chronic obstructive pulmonary disease, unspecified J44.9 ; Bipolar disorder, current episode mixed, moderate F31.62 ; Malignant neoplasm of parotid gland C07 ; Nicotine dependence, unspecified, uncomplicated F17.200 and Cocaine abuse, uncomplicated F14.[address] [place] [id number] 08/09/2023 Mike Malone Encounter for screening for COVID-19 Z11.52 ; Fibromyalgia M79.7 ; Sheltered homelessness Z59.01 ; Malignant neoplasm of parotid gland C07 ; Bipolar disorder, current episode mixed, moderate F31.62 ; Chronic obstructive pulmonary disease, unspecified J44.9 and Cocaine abuse, uncomplicated F14.[address] [place] [id number] 08/11/2023 Juanita Todd Bipolar disorder, current episode mixed, moderate F31.62 and Counseling, unspecified Z71.[address] [place] [id number] 09/01/2023 Mike Malone Encounter for screening for COVID-19 Z11.52 ; Bipolar disorder, current episode mixed, moderate F31.62 ; Sheltered homelessness Z59.01 ; Malignant neoplasm of parotid gland C07 and Nicotine dependence, unspecified, uncomplicated F17.[address] [place] [id number] 09/06/2023 Juanita Todd Bipolar disorder, current episode mixed, moderate F31.62 and Counseling, unspecified Z71.[address] [place] [id number] 09/08/2023 Jessika Altamirano Bipolar disorder, current episode mixed, moderate F31.62 ; Borderline personality disorder F60.3 ; Cocaine abuse, uncomplicated F14.10 ; Post-traumatic stress disorder, chronic F43.12 ; Obstructive sleep apnea (adult) (pediatric) G47.33 ; Malignant neoplasm of parotid gland C07 ; Insomnia due to other mental disorder F51.05 ; 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 and Encounter for screening for COVID-[address] [id number] 11/08/2023 Mike Malone Encounter for screening for COVID-19 Z11.52 ; Chronic obstructive pulmonary disease, unspecified J44.9 ; Sheltered homelessness Z59.01 ; Bipolar disorder, current episode mixed, moderate F31.62 ; Malignant neoplasm of parotid gland C07 ; Encounter for immunization Z23 ; 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 ; Nicotine dependence, unspecified, uncomplicated F17.200 ; Cocaine abuse, uncomplicated F14.10 ; Restless legs syndrome G25.81 and Encounter for screening for infectious and parasitic diseases, unspecified Z11.9 [facility] [address] [place] [address] [place], [place] [id number] 11/10/2023 Jessika Altamirano Bipolar disorder, current episode mixed, moderate F31.62 ; Post-traumatic stress disorder, chronic F43.12 ; Insomnia due to other mental disorder F51.05 ; Restless legs syndrome G25.81 ; Borderline personality disorder F60.3 ; Nicotine dependence, unspecified, uncomplicated F17.200 ; Encounter for screening for COVID-19 Z11.52 and Cocaine abuse, uncomplicated F14.[address] [facility] [address] [place] [address] [place], [place] [id number] 12/08/2023 Jessika Altamirano Bipolar disorder, current episode mixed, moderate F31.62 ; Borderline personality disorder F60.3 ; Post-traumatic stress disorder, chronic F43.12 ; Insomnia due to other mental disorder F51.05 ; Restless legs syndrome G25.81 ; Nicotine dependence, unspecified, uncomplicated F17.200 ; Cocaine abuse, uncomplicated F14.10 and Encounter for screening for COVID-[address] [id number] 01/10/2024 Mike Malone Encounter for screening for COVID-19 Z11.52 ; Dehydration E86.0 ; Morbid (severe) obesity due to excess calories E66.01 ; Infectious gastroenteritis and colitis, unspecified A09 ; Chronic obstructive pulmonary disease, unspecified J44.9 ; Nicotine dependence, unspecified, uncomplicated F17.200 ; Bipolar disorder, current episode mixed, moderate F31.62 ; Malignant neoplasm of parotid gland C07 ; Obstructive sleep apnea (adult) (pediatric) G47.33 and Encounter for screening mammogram for malignant neoplasm of breast Z12.31 [facility] [place] [id number] 01/19/2024 Jessika Altamirano Bipolar disorder, current episode mixed, moderate F31.62 ; Borderline personality disorder F60.3 ; Post-traumatic stress disorder, chronic F43.12 ; Insomnia due to other mental disorder F51.05 ; Restless legs syndrome G25.81 ; Nicotine dependence, unspecified, uncomplicated F17.200 and Cocaine abuse, uncomplicated F14.[address] [place] [id number] 03/27/2024 Mike Malone Chronic obstructive pulmonary disease, unspecified J44.9 ; Difficulty in walking, not elsewhere classified R26.2 ; Malignant neoplasm of parotid gland C07 ; Sheltered homelessness Z59.01 ; Bipolar disorder, current episode mixed, moderate F31.62 and Hypoxemia R09.[address] [id number] 05/22/2024 Mike Malone Encounter for screening for COVID-19 Z11.52 ; Chronic obstructive pulmonary disease, unspecified J44.9 ; Bipolar disorder, current episode mixed, moderate F31.62 ; Sheltered homelessness Z59.01 ; Malignant neoplasm of parotid gland C07 ; 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 ; Nicotine dependence, unspecified, uncomplicated F17.200 ; Morbid (severe) obesity due to excess calories E66.01 ; Body mass index [BMI] 45.0-49.9, adult Z68.42 and Dependence on supplemental oxygen Z99.81 [facility] [place] [id number] 05/24/2024 Jessika Altamirano Bipolar disorder, current episode mixed, moderate F31.62 ; Borderline personality disorder F60.3 ; Post-traumatic stress disorder, chronic F43.12 ; Insomnia due to other mental disorder F51.05 ; Restless legs syndrome G25.81 ; Nicotine dependence, unspecified, uncomplicated F17.200 ; Cocaine abuse, uncomplicated F14.10 ; Alcohol use, unspecified, 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 and Encounter for screening for COVID-[address] [id number] 02/21/2024 [facility] [address] [place] [address] [id number] 03/05/2024 Mike [facility] [address] [place] [address] [id number] 05/24/2024 Mike [facility] [address] [place] [address] [id number] 06/01/2023 Mike [facility] [address] [place] [address] [id number] 06/07/2023 [facility] [address] [place] [address] [id number] 06/07/2023 Mike [facility] [address] [place] [address] [id number] 06/07/2023 Mike [facility] [address] [place] [address] [id number] 06/07/2023 Jessika [facility] [address] [place] [address] [id number] 06/13/2023 Mike Mal[facility] [address] [place] [address] [id number] 06/13/2023 Mike Mal[facility] [address] [place] [address] [id number] 06/14/2023 Mike Mal[facility] [address] [place] [address] [id number] 06/17/2023 Mike Mal[facility] [address] [place] [address] [id number] 06/21/2023 Mike [facility] [address] [place] [address] [id number] 06/22/2023 Mike Mal[facility] [address] [place] [address] [id number] 06/23/2023 Mike [facility] [address] [place] [address] [id number] 07/11/2023 Mike Mal[facility] [address] [place] [address] [id number] 07/11/2023 Mike Mal[facility] [address] [place] [address] [id number] 07/13/2023 Mike Mal[facility] [address] [place] [address] [id number] 07/23/2023 Mike Mal[facility] [address] [place] [address] [id number] 07/25/2023 Mike Bal[facility] [address] [place] [address] [id number] 07/26/2023 Mike [facility] [address] [place] [address] [id number] 07/27/2023 [facility] [address] [place] [address] [id number] 07/29/2023 Mike Malone Bipolar disorder, current episode mixed, moderate F31.[address] [id number] 08/01/2023 Mike Balder [address] [id number] 08/01/2023 Mike Balder [address] [id number] 08/04/2023 Mike Balder [address] [id number] 08/16/2023 Jessika Altamirano 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 and Bipolar disorder, current episode mixed, moderate F31.[address] [id number] 08/16/2023 Mike Gabrielder [address] [id number] 08/17/2023 [facility] [address] [place] [address] [id number] 08/17/2023 Mike Gabrielder [address] [id number] 09/01/2023 Mike [facility] [address] [place] [address] [id number] 09/01/2023 Mike [facility] [address] [place] [address] [id number] 09/01/2023 Mike [facility] [address] [place] [address] [id number] 09/06/2023 Mike [facility] [address] [place] [address] [id number] 09/06/2023 Mike [facility] [address] [place] [address] [id number] 09/06/2023 Mike [facility] [address] [place] [address] [id number] 09/08/2023 Mike [facility] [address] [place] [address] [id number] 09/12/2023 Mike Malone [address] [id number] 09/13/2023 Mike Gabrielder [address] [id number] 09/20/2023 Mike Malone Bipolar disorder, current episode mixed, moderate F31.[address] [id number] 09/29/2023 Mike Gabrielder [address] [id number] 09/30/2023 Mike Gabrielder [address] [id number] 10/04/2023 Mike Gabrielder [address] [id number] 10/13/2023 Mike Malone Bipolar disorder, current episode mixed, moderate F31.[address] [id number] 10/17/2023 Mike Malone [address] [id number] 10/18/2023 Mike Gabrielder [address] [id number] 11/01/2023 Mike Malone [address] [id number] 11/01/2023 Mike Malone [address] [id number] 11/04/2023 Mike Malone [address] [id number] 11/08/2023 Mike Malone [address] [id number] 11/08/2023 Mike Gabrielder [address] [id number] 11/08/2023 Mike Malone Bipolar disorder, current episode mixed, moderate F31.62 ; Post-traumatic stress disorder, chronic F43.12 ; Insomnia due to other mental disorder F51.05 and Restless legs syndrome G25.[address] [id number] 11/09/2023 Mike Malone Bipolar disorder, current episode mixed, moderate F31.[address] [id number] 11/11/2023 [facility] [address] [place] [address] [id number] 11/11/2023 Mike [facility] [address] [place] [address] [id number] 11/15/2023 [facility] [address] [place] [address] [id number] 11/22/2023 Mike Mal[facility] [address] [place] [address] [id number] 11/25/2023 Mike [facility] [address] [place] [address] [id number] 11/28/2023 [facility] [address] [place] [address] [id number] 11/28/2023 Mike [facility] [address] [place] [address] [id number] 11/28/2023 Mike [facility] [address] [place] [address] [id number] 11/30/2023 Mike [facility] [address] [place] [address] [id number] 12/02/2023 Mike [facility] [address] [place] [address] [id number] 12/09/2023 Mike [facility] [address] [place] [address] [id number] 12/15/2023 Mike [facility] [address] [place] [address] [id number] 12/16/2023 Mike [facility] [address] [place] [address] [id number] 12/21/2023 Mike [facility] [address] [place] [address] [id number] 12/22/2023 Mike [facility] [address] [place] [address] [id number] 12/27/2023 Mike [facility] [address] [place] [address] [id number] 12/30/2023 Mike Malone Bipolar disorder, current episode mixed, moderate F31.[address] [id number] 2024 Mike Malone [facility] [address] [place] [address] [id number] 01/04/2024 Mike Mal[facility] [address] [place] [address] [id number] 01/05/2024 [facility] [address] [id number] 01/05/2024 Mike Balder [facility] [address], [place] [id number] 01/06/2024 [facility] [address] [place] [address] [id number] 01/11/2024 [facility] [address] [place] [address] [id number] 01/17/2024 Mike [facility] [address] [place] [address] [id number] 01/19/2024 [facility] [address] [place] [address] [id number] 01/20/2024 Mike [facility] [address] [place] [address] [id number] 02/06/2024 Mike Bal[facility] [address] [place] [address] [id number] 02/07/2024 Mike Bal[facility] [address] [place] [address] [id number] 02/09/2024 Mike Bal[facility] [address] [place] [address] [id number] 02/10/2024 [facility] [address] [place] [address] [id number] 02/10/2024 Mike [facility] [address] [place] [address] [id number] 02/14/2024 Mike [facility] [address] [place] [address] [id number] 02/15/2024 Mike [facility] [address] [place] [address] [id number] 02/15/2024 Mike [facility] [address] [place] [address] [id number] 02/20/2024 [facility] [address] [place] [address] [id number] 02/21/2024 [facility] [address] [place] [address] [id number] 02/24/2024 Mike [facility] [address] [place] [address] [id number] 02/24/2024 Mike [facility] [address] [place] [address] [id number] 02/27/2024 Mike Balder [facility] [address], [place] [id number] 03/01/2024 [facility] [address], [place] [id number] 03/02/2024 Mike Balder [facility] [address] [place] [address] [id number] 03/05/2024 [facility] [address] [place] [address] [id number] 03/06/2024 [facility] [address] [place] [address] [id number] 03/07/2024 [facility] [address] [place] [address] [id number] 03/21/2024 [facility] [address] [place] [address] [id number] 03/21/2024 [facility] [address] [place] [address] [id number] 03/27/2024 Mike [facility] [address] [place] [address] [id number] 04/02/2024 Mike Bal[facility] [address] [place] [address] [id number] 04/04/2024 [facility] [address] [place] [address] [id number] 04/06/2024 Mike Bal[facility] [address] [place] [address] [id number] 04/17/2024 [facility] [address] [place] [address] [id number] 04/19/2024 [facility] [address] [place] [address] [id number] 04/25/2024 [facility] [address] [place] [address] [id number] 05/01/2024 Mike [facility] [address] [place] [address] [id number] 05/08/2024 Mike Bal[facility] [address] [place] [address] [id number] 05/14/2024 Mike Bal[facility] [address] [place] [address] [id number] 05/21/2024 [facility] [address] [place] [address] [id number] 05/22/2024 Mike Gabrielder [address] [id number] 05/23/2024 Mike Gabrielfaustina ASSESSMENTS Encounter Date Diagnosis Assessment Notes Treatment Notes Treatment Clinical Notes 07/07/2023 Bipolar disorder, current episode mixed, moderate (ICD-10 - F31.62) Reviewed hx of psychiatric illness, treatment received and medication trials with client. Discussed current medications as to indications, actions and side effects. Reviewed risks benefits of treatment versus non treatment. Medication education provided. Patient given opportunity to ask questions. Patient gives informed consent to proceed with prescribed treatment. 1. Mass HELIUM ARC WELDER reviewed: see Exam 2. Medications: 3. Cont [...] verbalizes agreement, allowed time for clarifying questions. 07/21/2023 Encounter for screening for infectious and parasitic [...] you are having concerning symptoms for COVID-19. 08/18/2023 Encounter for screening for COVID-19 (ICD-10 - Z11.52) Covid screening is negative. Discussed in detail [...] you are having concerning symptoms for COVID-19. 09/01/2023 Encounter for screening for COVID-19 (ICD-10 - Z11.52) Covid screening is negative. Discussed in detail [...] you are having concerning symptoms for COVID-19. 10/13/2023 Encounter for screening for COVID-19 (ICD-10 - Z11.52) Covid screening is negative. Discussed in detail [...] you are having concerning symptoms for COVID-19. 01/05/2024 Encounter for screening for COVID-19 (ICD-10 - Z11.52) Covid screening is negative. Discussed in detail [...] you are having concerning symptoms for COVID-19. 02/21/2024 Encounter for screening for COVID-19 (ICD-10 - Z11.52) Covid screening is negative. Discussed in detail [...] you are having concerning symptoms for COVID-19. 02/21/2024 Encounter for screening for COVID-19 (ICD-10 - Z11.52) Covid screening is negative. Discussed in detail [...] you are having concerning symptoms for COVID-19. 03/29/2024 Encounter for screening for COVID-19 (ICD-10 - Z11.52) Covid screening is negative. Discussed in detail [...] you are having concerning symptoms for COVID-19. 06/07/2023 Malignant neoplasm of parotid gland (ICD-10 - C07) CT booked for next week. Scar tenderness is back I guess at thispoint she and her BF willrun the meds etc. Proxy done today on their reqyest 06/07/2023 Bipolar disorder, current episode mixed, moderate (ICD-10 - F31.62) 2 weeks ago at [facility] li level 1.56; repeattod todayand too work with on dosing 06/30/2023 Chronic obstructive pulmonary disease, unspecified (ICD-10 - [...] puffs bid-expolained this is EVERY day rx 06/30/2023 Encounter for screening for infectious and parasitic [...] you are having concerning symptoms for COVID-19. 08/09/2023 Fibromyalgia (ICD-10 - M79.7) widespread pain syndrome.-we are grdaually iuncreasing her diane. She understands why it is go slow 08/09/2023 Encounter for screening for COVID-19 (ICD-10 - Z11.52) Covid screening is negative. Discussed in detail [...] you are having concerning symptoms for COVID-19. 08/11/2023 Bipolar disorder, current episode mixed, moderate (ICD-10 - F31.62) Aware referral for new DRY END OPERATOR/Visting Nurse prorgam has been made. Awaer of 08/18/23 appt with PMSERGIOP, Jessika Altamirano, at [facility]. Aware of f/u appt with Dr. Malone 09/01/23. Seeking f/u therapy via telehealth; scheduled with Milton Todd [facility], 09/06/23. Discussed benefits of coordination of care and management of appts. Discussed relaxation techniques and breathing techniques to do in various settings. Clt given [facility] and crisis contact information. Clt understands and agrees with plan. 08/11/2023 Counseling, unspecified (ICD-10 - Z71.9) Social distancing, hand washing, wearing a mask in public places, and not touching the face were strategies discussed to avoid scotty COVID-19. Symptoms of COVID-19 were reviewed and advised to promptly report concerning symtpoms to arrange for assessment and possible testing. 09/01/2023 Bipolar disorder, current episode mixed, moderate (ICD-10 - F31.62) 09/01/2023 Encounter for screening for COVID-19 (ICD-10 - Z11.52) Covid screening is negative. Discussed in detail [...] you are having concerning symptoms for COVID-19. 09/06/2023 Bipolar disorder, current episode mixed, moderate (ICD-10 - F31.62) Aware referral for new DRY END OPERATOR/Visting Nurse prorgam has been made. Per telephone encounter dated 09/01/23 the agency for visting nurseing and DRY END OPERATOR (Stan) was called and message was left by LIVIA RN, lisaung an update on the referral. Sent Miquel Mcqueen, C3 catalytic case operator, a message regarding information on Clt's meals on wheels cancellation. Rescheduled missed appt with SHAE Nolen, via telehelath per client's request on 09/08/23. Seeking f/u therapy via telehealth; scheduled with Milton Todd [facility], 09/29/23. Discussed benefits of coordination of care and management of appts. Discussed relaxation techniques and breathing techniques to do in various settings. Clt given H[facility] and crisis contact information. Clt understands and agrees with plan. 09/08/2023 Bipolar disorder, current episode mixed, moderate (ICD-10 - F31.62) Reviewed hx of psychiatric illness, treatment received and medication trials with client. Discussed current medications as to indications, actions and side effects. Reviewed risks benefits of treatment versus non treatment. Medication education provided. Patient given opportunity to ask questions. Patient gives informed consent to proceed with prescribed treatment. 1. Mass HELIUM ARC WELDER reviewed: see Exam 2. Medications: await med list from respite 3. Cont psychotherapy: seeing Gabriel Todd [facility] 4. Labs/Procedures: needs [place] level 5. Exercise/Nutrition: sleep, regular exercise and nutrition all have a direct impact on our health and well-being. Keeping them in balance is especially important when we face stressful times in our lives. Eat balanced meals, get 6-8 hours of sleep a night, daily walking as able. 6. Understands plan and verbalizes agreement, allowed time for clarifying questions. Trying to do medication reconciliation , per clt attended [facility] and was started back on Wellbutrin, Trileptal and melatonin. Called VICENTA TY Faustino to verify meds and get copy of meds she was released on from [facility]. Await printed med list. 11/08/2023 Chronic obstructive pulmonary disease, unspecified (ICD-10 - J44.9) Doing better at present and got flu vax today 11/08/2023 Encounter for screening for COVID-19 (ICD-10 - Z11.52) Covid screening is negative. Discussed in detail [...] you are having concerning symptoms for COVID-19. 11/10/2023 Bipolar disorder, current episode mixed, moderate (ICD-10 - F31.62) Client aware medications were just refilled through [facility].Saco level pending however not trough. 12/08/2023 Bipolar disorder, current episode mixed, moderate (ICD-10 - F31.62) Client has refills. [facility] Nurse handling medications. 01/10/2024 Dehydration (ICD-10 - E86.0) she is at least mildly dehydrated and cannot keep things down; sytates no urine output today. I think it is best to [facility] for lytes/BMP; urinalsys (just in case) and 1-2 L IV fluid to see if she stabilizes and keeps things in. I do not have capacity to do these here 01/10/2024 Encounter for screening for COVID-19 (ICD-10 - Z11.52) Covid screening is negative. Discussed in detail [...] you are having concerning symptoms for COVID-19. 01/19/2024 Bipolar disorder, current episode mixed, moderate (ICD-10 - F31.62) Reviewed hx of psychiatric illness, treatment received and medication trials with client. Discussed current medications as to indications, actions and side effects. Reviewed risks benefits of treatment versus non treatment. Medication education provided. Patient given opportunity to ask questions. Patient gives informed consent to proceed with prescribed treatment. 1. Mass HELIUM ARC WELDER reviewed: see Exam 2. Medications: Client has refills. [facility] Nurse handling medications. 3. Cont psychotherapy: enc to make f/u appt with therapist 4. Labs/Procedures: none nfor review, seeing Dr. Medina PCP at [facility]. 5. Exercise/Nutrition: sleep, regular exercise and nutrition all have a direct impact on our health and well-being. Keeping them in balance is especially important when we face stressful times in our lives. Eat balanced meals, get 6-8 hours of sleep a night, daily walking as able. 6. Understands plan and verbalizes agreement, allowed time for clarifying questions. 03/27/2024 Chronic obstructive pulmonary disease, unspecified (ICD-10 - J44.9) I think she is stable but will rx a sexacerbation at least with Doxy. She and i discussed and agree need to plan for oxygen recert but asking staff to contact [facility] first With frequency of exacerbation time to add inhaled steroid and LABA 03/27/2024 Difficulty in walking, not elsewhere classified (ICD-10 - R26.2) need to figure out status of mobility clinic 05/22/2024 Chronic obstructive pulmonary disease, unspecified (ICD-10 - J44.9) Now oxygen dependent. On good inhaled regimen and we discussed nebulized rescue plan, tobacco and environmental controls. 05/22/2024 Encounter for screening for COVID-19 (ICD-10 - Z11.52) Covid screening is negative. Discussed in detail [...] you are having concerning symptoms for COVID-19. 05/24/2024 Bipolar disorder, current episode mixed, moderate (ICD-10 - F31.62) Reviewed hx of psychiatric illness, treatment received and medication trials with client. Discussed current medications as to indications, actions and side effects. Reviewed risks benefits of treatment versus non treatment. Medication education provided. Patient given opportunity to ask questions. Patient gives informed consent to proceed with prescribed treatment. 1. Mass HELIUM ARC WELDER reviewed: see Exam 2. Medications: RF sent to [facility]. Trevor YADAV Nurse Faustino handling medications. 3. Cont psychotherapy: TE sent to Gabriel Todd [facility] for telehealth appt 4. Labs/Procedures: none nfor review, seeing Dr. Medina PCP at [facility]. 5. Exercise/Nutrition: sleep, regular exercise and nutrition all have a direct impact on our health and well-being. Keeping them in balance is especially important when we face stressful times in our lives. Eat balanced meals, get 6-8 hours of sleep a night, daily walking as able. 6. Understands plan and verbalizes agreement, allowed time for clarifying questions. 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 12/30/2023 Bipolar disorder, current episode mixed, moderate (ICD-10 - F31.62) New script sent as old script had NDC error and was not able to be filled by pharmacy. No dose change. 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 06/30/2023 Bipolar disorder, current episode mixed, moderate (ICD-10 - F31.62) she worries about her emotional stability and has active f/u here with [facility]. Has trouble remembering meds( see below) 08/09/2023 Sheltered homelessness (ICD-10 - Z59.01) 09/01/2023 Sheltered homelessness (ICD-10 - Z59.01) 09/06/2023 Counseling, unspecified (ICD-10 - Z71.9) Social distancing, hand washing, wearing a mask in public places, and not touching the face were strategies discussed to avoid scotty COVID-19. Symptoms of COVID-19 were reviewed and advised to promptly report concerning symtpoms to arrange for assessment and possible testing. 09/08/2023 Borderline personality disorder (ICD-10 - F60.3) Continue therapy 11/08/2023 Sheltered homelessness (ICD-10 - Z59.01) 11/10/2023 Post-traumatic stress disorder, chronic (ICD-10 - F43.12) Encouraged to make f/u appt with [facility] Milton Todd at [facility]. 12/08/2023 Borderline personality disorder (ICD-10 - F60.3) Support and encouragement provided around issues with partner and close friend. 01/10/2024 Morbid (severe) obesity due to excess calories (ICD-10 - E66.01) Struggles with this and her breathing 01/19/2024 Borderline personality disorder (ICD-10 - F60.3) Support and encouragement provided around recent altercatrion with ex partner. 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 She seems in a better space today and is looking forward to moving in to another [facility] supported apartment. She endorses she is not seeing anyone at this time and prefers to keep it that way. 08/16/2023 Bipolar disorder, current episode mixed, moderate (ICD-10 - F31.62) 11/08/2023 Insomnia due to other mental disorder (ICD-10 - F51.05) 07/07/2023 Malignant neoplasm of parotid gland (ICD-10 - C07) Client will do monitoring 06/07/2023 Sheltered homelessness (ICD-10 - Z59.01) 06/30/2023 Malignant neoplasm of parotid gland (ICD-10 - C07) Shared last TT report withher. Some subtle change but does not sound worrisome. I had called ENT at [facility] with repzeyadt 2 weeks ago and they have not gotten vback to ewither of us. Nurse to call them again as patient wants and deserves their opinion 08/09/2023 Malignant neoplasm of parotid gland (ICD-10 - C07) does not say she has local sx. She is on [address] schedule and will reqeust scan for August. See if we can get copy directly to her ENT at [facility] 09/01/2023 Malignant neoplasm of parotid gland (ICD-10 - C07) 09/08/2023 Cocaine abuse, uncomplicated (ICD-10 - F14.10) Reports no recent use 11/08/2023 Bipolar disorder, current episode mixed, moderate (ICD-10 - F31.62) Labs drawn per protocol, no difficulties, sent to lab, pt to RTC for f/u. Pt reports taking Saco last night this am and at noon today lithium level drawn at 335pm Sees in 2 days. We know her lithium evel today too nbot be true trough 11/10/2023 Insomnia due to other mental disorder (ICD-10 - F51.05) Clt asked to continue melatonin as she feels it helps with sleep. 12/08/2023 Post-traumatic stress disorder, chronic (ICD-10 - F43.12) Encouraged to make f/u appt with [facility] Milton Todd at [facility]. 01/10/2024 Infectious gastroenteritis and colitis, unspecified (ICD-10 - A09) I assume this is currnet dx but rather prolonged. No signs of ocstruction and belly nor guarded. See above 01/19/2024 Post-traumatic stress disorder, chronic (ICD-10 - F43.12) Encouraged to make f/u appt with [facility] Milton Todd at [facility]. 03/27/2024 Sheltered homelessness (ICD-10 - Z59.01) She is excited about relocating will ask [facility] about POCA status 05/22/2024 Sheltered homelessness (ICD-10 - Z59.01) 05/24/2024 Post-traumatic stress disorder, chronic (ICD-10 - F43.12) TE sent to [facility] Milton Todd at [facility] to schedue telehealth therapy. 11/08/2023 Restless legs syndrome (ICD-10 - G25.81) Note dose of ropinirole is 1mmg nightly. 07/07/2023 Obstructive sleep apnea (adult) (pediatric) (ICD-10 - G47.33) Wearing CPAP as directed feeling more rested. States she took an old trazodone one night and felt am grogginess, aware trazodone D/C'd and advised to talk with prescriber before taking again. Sleep hygiene reviewed. 06/07/2023 Candidiasis, unspecified (ICD-10 - B37.9) oral-rx topically 06/30/2023 Nicotine dependence, unspecified, uncomplicated (ICD-10 - F17.200) wants to stop adn smokes impulsiveley. WIlling to tryu chantix and patch and advised her to not buy cigatrettes. we have to try but niot sure how well it will go. Canitx effects and se's d/w patinet 08/09/2023 Bipolar disorder, current episode mixed, moderate (ICD-10 - F31.62) this with he PTSD/borderline state and suicidal ideation ahve become dominant issues. She is to see team in next 9 days. Hope she can engage and stay on meds. Most commonly she ends up in [facility] ER and stays 1-3 nithts until she decidds to go home. She has new fear in current housing. Says 2 screens were cut while she was out recently States adherent to her lithium 09/01/2023 Nicotine dependence, unspecified, uncomplicated (ICD-10 - F17.200) 09/08/2023 Post-traumatic stress disorder, chronic (ICD-10 - F43.12) 11/08/2023 Malignant neoplasm of parotid gland (ICD-10 - C07) At present no signs of recurrence. She is due for [address] next nmonths. Went over negative findings with her 11/10/2023 Restless legs syndrome (ICD-10 - G25.81) 12/08/2023 Insomnia due to other mental disorder (ICD-10 - F51.05) Clt asked to continue melatonin as she feels it helps with sleep. 01/10/2024 Chronic obstructive pulmonary disease, unspecified (ICD-10 - J44.9) TIme to get real PFTs 01/19/2024 Insomnia due to other mental disorder (ICD-10 - F51.05) Clt asked to continue melatonin as she feels it helps with sleep. 03/27/2024 Bipolar disorder, current episode mixed, moderate (ICD-10 - F31.62) sattes she is more intact and stable. No change in meds 05/22/2024 Malignant neoplasm of parotid gland (ICD-10 - C07) overdue for CT-booked 05/24/2024 Insomnia due to other mental disorder (ICD-10 - F51.05) Clt asked to continue melatonin as she feels it helps with sleep. 07/07/2023 Nicotine dependence, unspecified, uncomplicated (ICD-10 - F17.200) Per client has Step 1 and Step 2 patches when she feels ready to commit to cessation. She is smoking 2 to 2.5 packs a day. Encouraged to cut back in light of COPD diagnosis. 06/07/2023 Chronic obstructive pulmonary disease, unspecified (ICD-10 - J44.9) more llergic todya than anything zurtec and time 06/30/2023 Cocaine abuse, uncomplicated (ICD-10 - F14.10) stil,her 2nd biggest devil after tobbacco. 08/09/2023 Chronic obstructive pulmonary disease, unspecified (ICD-10 - J44.9) Sx stabke but battles with her smoking all the time but ddown to 3 cigarettes adaY! 09/08/2023 Obstructive sleep apnea (adult) (pediatric) (ICD-10 - G47.33) Wearing CPAP 11/08/2023 Encounter for immunization (ICD-10 - Z23) Screening performed for vaccine contraindications prior to administration. See scanned document. VIS reviewed. No contraindications for vaccine administration. Infuenza vaccine given per protocol. No adverse outcome with administration of vaccine. 11/10/2023 Borderline personality disorder (ICD-10 - F60.3) Support and encouragement provided arouns current housing concerns. 12/08/2023 Restless legs syndrome (ICD-10 - G25.81) 01/10/2024 Nicotine dependence, unspecified, uncomplicated (ICD-10 - F17.200) Smoikng more while ill. 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 Stable 05/24/2024 Restless legs syndrome (ICD-10 - G25.81) 07/07/2023 Encounter for screening for infectious and parasitic [...] you are having concerning symptoms for COVID-19. 06/07/2023 Obstructive sleep apnea (adult) (pediatric) (ICD-10 - G47.33) 08/09/2023 Cocaine abuse, uncomplicated (ICD-10 - F14.10) This become delphine addiitonal foe so to speak. She does not know how to contorl it 09/08/2023 Malignant neoplasm of parotid gland (ICD-10 - C07) To follow up with Dr. 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 Stil on rx for RLS 11/10/2023 Nicotine dependence, unspecified, uncomplicated (ICD-10 - F17.200) 12/08/2023 Nicotine dependence, unspecified, uncomplicated (ICD-10 - F17.200) Encouraged to continue to cut back on smoking and use MAT. 01/10/2024 Bipolar disorder, current episode mixed, moderate (ICD-10 - F31.62) As stable as I have see at the present time. Will try to continue meds 01/19/2024 Nicotine dependence, unspecified, uncomplicated (ICD-10 - F17.200) Encouraged to continue to cut back on smoking and use MAT. 05/22/2024 Nicotine dependence, unspecified, uncomplicated (ICD-10 - F17.200) keeps working to reduce 05/24/2024 Nicotine dependence, unspecified, uncomplicated (ICD-10 - F17.200) Encouraged to continue to cut back on smoking and use MAT. 09/08/2023 Insomnia due to other mental disorder (ICD-10 - F51.05) 11/08/2023 Nicotine dependence, unspecified, uncomplicated (ICD-10 - F17.200) stopped afew weeks ago. She s and then piuces the gum-renewed 11/10/2023 Encounter for screening for COVID-19 (ICD-10 - Z11.52) Covid screening is negative. Discussed in detail [...] you are having concerning symptoms for COVID-19. 12/08/2023 Cocaine abuse, uncomplicated (ICD-10 - F14.10) Discussed risks of cocaine use both acute incuding VA, stroke, injury due to use and associated overconfidence, hallucinations; after effects including mood issues, legal ramifications, financial issues and then skilled nursing including lung dx, vasc, heart dx, kidney failure etc... Consider [facility] referral when ready. 01/10/2024 Malignant neoplasm of parotid gland (ICD-10 - C07) Booked for routne CT in a week. 01/19/2024 Cocaine abuse, uncomplicated (ICD-10 - F14.10) Discussed risks of cocaine use both acute incuding VA, stroke, injury due to use and associated overconfidence, hallucinations; after effects including mood issues, legal ramifications, financial issues and then terminal press operator including lung dx, vasc, heart dx, kidney failure etc... Consider [facility] referral when ready. 05/22/2024 Morbid (severe) obesity due to excess calories (ICD-10 - E66.01) A struggle for her 05/24/2024 Cocaine abuse, uncomplicated (ICD-10 - F14.10) Discussed risks of cocaine use both acute incuding VA, stroke, injury due to use and associated overconfidence, hallucinations; after effects including mood issues, legal ramifications, financial issues and then skilled nursing including lung dx, vasc, heart dx, kidney failure etc... Clt has [facility] and states they will take her to AA meeting. She denies rcent cocaine use. States she has had alcohol cravings however has not succumbed. 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 Consider [facility] referral when ready. 12/08/2023 Encounter for screening for COVID-19 (ICD-10 - Z11.52) Covid screening is negative. 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 States she asked someone who came to her apartment with alcohol to leave. Plans to attend AA meeting with [facility]. 09/08/2023 Encounter for screening for COVID-19 (ICD-10 - Z11.52) Covid screen negative. 11/08/2023 Restless legs syndrome (ICD-10 - G25.81) see above-doing better 01/10/2024 Encounter for screening mammogram for malignant neoplasm of breast (ICD-10 - Z12.31) 05/22/2024 Dependence on supplemental oxygen (ICD-10 - Z99.81) 05/24/2024 Encounter for screening for COVID-19 (ICD-10 - Z11.52) Covid screening negative 11/08/2023 Encounter for screening for infectious and parasitic diseases, unspecified (ICD-10 - Z11.9) 08/18/2023 Other 09/01/2023 Other 10/13/2023 Other 01/05/2024 Other 02/21/2024 Other 02/21/2024 Other 03/29/2024 Other 06/07/2023 Other Labs drawn per protocol, no difficulties, sent to lab, pt to RTC for f/u proxy paper done 06/30/2023 Other Because of emoionality and other factros says she misses med s or foirgets the,m. She latys oyut her pill bxioes (hopes she gets it right-literacy issue) but really wants new VNA that can handle her lock box. I concur. We know she misses devon a lot (see lithiuum levels low last 2 times0 08/09/2023 Other 12 minjute call We are working on afgency with [facility] [employer] capacity-she agrees. Needs help with basic house tasks 08/11/2023 Other Time spent in v isit: 24 minutes 09/01/2023 Other 22 minute call Log talk today. Trying to get meds set;appts made BH status jackson and meds upodated Too try to getin for care Reviewed upcoming apts with her. 09/06/2023 Other Time spent in v isit: 34 minutes 09/08/2023 Other Telehealth per client request Provider: ENRIQUE Client: juice Advocte: none Minutes: 30 minutes 11/08/2023 Other Labs drawn per protocol, no difficulties, sent to lab, pt to RTC for f/u 11/10/2023 Other Telehealth Audio Provider: [facility] Client: juice Advocate: none Time in minutes: 22 minutes 12/08/2023 Other 01/10/2024 Other Will come back for PAP with me 01/19/2024 Other As noted in HP I, request sent to RN for cane and electroc scooter. 03/27/2024 Other 15 minuite call 05/22/2024 Other getting w/c cli kirill evaluation-needs it 05/24/2024 Other Time spent in v isit: 22 minutes PLAN OF TREATMENT Pending Test Test Name Order Date Pulmonary Function Test 01/07/2023 Pulmonary Function Test 01/10/2024 SLEEP STUDY, ATTENDED 01/10/2024 LIPID PANEL 02/03/2023 COMPREHENSIVE METABOLIC PANEL-[facility] 03/2023 ALBUMIN 02/03/2023 CBC (H/H, RBC, INDICES, WBC, PLT) 2022 HEMOGLOBIN A1c 02/03/2023 HEPATITIS B CORE AB TOTAL 02/03/2023 HEPATITIS B SURFACE ANTIGEN W/REFL CONFI RM 02/03/2023 TSH 02/03/2023 B TYPE NATRIURETIC PEPTIDE (BNP) 023 LITHIUM 02/03/2023 HEPATITIS B SURFACE AB IMMUNITY, QN 03/2023 CBC 12/07/2022 COMPREHENSIVE METABOLIC PANEL 12/07/2022 GLYCOHEMOGLOBIN PROFILE 12/07/2022 LIPID PROFILE 12/07/2022 LITHIUM LEVEL 12/07/2022 TSH CASCADE 12/07/2022 CT Neck W 11/08/2023 Natasha Screening Digital 01/10/2024 Next Appt Details Provider Name:Vufrancisca PruittEvelia, 07/05/2024 10:00:00 AM, [address] [place] [address] FOR [facility], [place], [place], [phone], Provider Name:Mike Malone, 07/19/2024 02:30:00 PM, [address] [place] [address], [phone], Insurance Providers Payer Name Payer Address Payer Phone Subscriber Number Group Number Insured Name Patient Relationship to Insured Coverage Start Date Coverage End Date ID Medicaid C3 [address] [place], [place] [id number] Bhavana Garza Self - patient is the insured MEDICAL (GENERAL) HISTORY Medical History History ICD Code 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, 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 Bipolar I Back Pain - Chronic Hx of headaches Asthma COPD Depression Anxiety Panic attacks Hx of multiple hernias Right forearm cyst 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 Appendectomy 17 yoa Cholecystectomy 17 yoa Left ankle fx repair - screw placement 1 5 YOA Herniated disc surgery over 5 years ago 3 c-sections Hospitalization History Reason Date(Month/Year) Multiple [facility] [place] visits for mood dysregul ation, cocaine misuse 2022 [facility] inpt psychiatric stay 2022 Pneumonia multiple Psych admits - multiple (30) 7 Yoa-50 Yo a
[2024-05-26] MEDS: Albuterol/Iprat 2.5/0.5MG 3 ML AMPUL.NEB INHALE (21:33)
[2024-05-26] MEDS: methylPREDNISolone Sod Succ 40 MG/ML VIAL IVPUSH (21:54)
[2024-05-26] MEDS: 0.9 % Sodium Chloride Flush 3 ML SYRINGE IVFLUSH (21:55)
[2024-05-26 22:13] LABS: MANUAL DIFF FLAG NO
[2024-05-26 22:18] LABS: Basophils Absolute Auto 0.1 X10*3/uL (0.0-0.2); Basophils Percent Auto 0.7 % (0-2); Eosinophils Absolute Auto 0.1 X10*3/uL (0.0-0.4); Eosinophils Percent Auto 1.4 % (0-4); Hematocrit 51.9 % (37.0-47.0); Hemoglobin 15.4 g/dl (12.0-16.0); Imm Gran Abs Auto 0.03 X10*3/uL (0.00-0.03); Imm Gran Pct Auto 0.3 % (0.0-0.4); Lymphocytes Absolute Auto 2.2 X10*3/uL (1.2-4.9); Lymphocytes Percent Auto 24.2 % (20-40); Mean Corpuscular HGB Conc 29.7 g/dl (31.0-35.0); Mean Corpuscular Hemoglobin 30.3 pg (27.0-33.0); Mean Corpuscular Volume 102.2 fL (80.0-98.0); Mean Platelet Volume 9.4 fL (9.4-12.3); Monocytes Absolute Auto 0.7 X10*3/uL (0.1-1.2); Monocytes Percent Auto 7.2 % (2-11); Neutrophils Absolute Auto 6.1 x10*3/uL (2.0-8.3); Neutrophils Percent Auto 66.2 % (45-73); Platelet Count 252 X10*3/uL (160-400); Red Blood Count 5.08 X10*6/uL (4.20-5.50); Red Cell Distribution Width 13.9 % (11.0-16.0); White Blood Count 9.2 X10*3/uL (4.8-10.8)
[2024-05-26 22:24] LABS: Lactic Acid 0.9 mmol/L (0.5-2.0)
[2024-05-26 22:28] LABS: Alanine Aminotransferase 12 U/L (0-31); Albumin Level 3.8 g/dL (3.5-5.0); Alkaline Phosphatase 46 U/L (39-117); Anion Gap 12 (12-20); Aspartate Amino Transferase 8 U/L (5-31); Bilirubin Total 0.3 mg/dL (0.0-1.0); Blood Urea Nitrogen 15 mg/dL (9-16); Calcium 9.8 mg/dL (8.4-10.2); Carbon Dioxide 38 mmol/L (22-29); Chloride 96 mmol/L (96-108); Estimated Glomerular Filt Rate > 60; Glucose Random 98 mg/dL (60-115); Potassium 4.4 mmol/L (3.3-5.1); Sodium 142 mmol/L (135-145)
[2024-05-26 22:34] LABS: B Type Natriuretic Peptide 28 pg/mL (<100)
[2024-05-26 22:35] LABS: Troponin-I High Sensitivity 3.4 ng/L (<3.5-17.0)
[2024-05-26] MEDS: Doxycycline Hyclate 100 MG in 0.9 % Sodium Chloride 250 ML 166.67 MG IV (22:44)
[2024-05-27] VITALS (20 sets, daily range): BP systolic 104–139; BP diastolic 60–87; PULSE 69–90; RESP 12–25; TEMP 36.1–36.6; O2SAT 89–96; BMI 43.8
[2024-05-27 00:20] LABS: VBG Base Excess 11.6 mmol/L; VBG HCO3 41 mmol/L (22-26); VBG pCO2 71 mmHg; VBG pH 7.36 (7.32-7.43); VBG pO2 41 mmHg
[2024-05-27 00:27] LABS: Venous Blood Gas Refer to POC result
[2024-05-27 04:59] LABS: VBG Base Excess 10.6 mmol/L; VBG HCO3 38 mmol/L (22-26); VBG pCO2 59 mmHg; VBG pH 7.41 (7.32-7.43); VBG pO2 70 mmHg
[2024-05-27 05:02] LABS: MANUAL DIFF FLAG NO
[2024-05-27 05:03] LABS: Venous Blood Gas Refer to POC result
[2024-05-27 05:05] LABS: Basophils Percent Auto 0.2 % (0-2); Eosinophils Percent Auto 0.1 % (0-4); Hematocrit 52.1 % (37.0-47.0); Hemoglobin 15.3 g/dl (12.0-16.0); Imm Gran Abs Auto 0.04 X10*3/uL (0.00-0.03); Imm Gran Pct Auto 0.5 % (0.0-0.4); Lymphocytes Absolute Auto 0.8 X10*3/uL (1.2-4.9); Lymphocytes Percent Auto 8.9 % (20-40); Mean Corpuscular HGB Conc 29.4 g/dl (31.0-35.0); Mean Corpuscular Volume 102.2 fL (80.0-98.0); Mean Platelet Volume 9.7 fL (9.4-12.3); Monocytes Absolute Auto 0.2 X10*3/uL (0.1-1.2); Monocytes Percent Auto 1.9 % (2-11); Neutrophils Absolute Auto 7.5 x10*3/uL (2.0-8.3); Neutrophils Percent Auto 88.4 % (45-73); Platelet Count 256 X10*3/uL (160-400); White Blood Count 8.5 X10*3/uL (4.8-10.8)
[2024-05-27] MEDS: methylPREDNISolone Sod Succ 40 MG/ML VIAL IVPUSH ×2 (05:22→15:49)
[2024-05-27 05:23] LABS: Alanine Aminotransferase 12 U/L (0-31); Albumin Level 3.8 g/dL (3.5-5.0); Alkaline Phosphatase 46 U/L (39-117); Anion Gap 11 (12-20); Aspartate Amino Transferase 7 U/L (5-31); Bilirubin Total 0.2 mg/dL (0.0-1.0); Blood Urea Nitrogen 13 mg/dL (9-16); Calcium 9.9 mg/dL (8.4-10.2); Carbon Dioxide 33 mmol/L (22-29); Chloride 100 mmol/L (96-108); Creatinine Clr Calc Pharmacy 138.5; Estimated Glomerular Filt Rate > 60; Glucose Random 142 mg/dL (60-115); Magnesium 1.9 mg/dL (1.6-2.6); Phosphorus 2.6 mg/dL (2.7-4.5); Potassium 4.9 mmol/L (3.3-5.1); Sodium 139 mmol/L (135-145); Total Protein 6.1 g/dL (6.5-8.0)
[2024-05-27 05:25] LABS: Alanine Aminotransferase 12 U/L (0-31); Albumin Level 3.8 g/dL (3.5-5.0); Alkaline Phosphatase 47 U/L (39-117); Anion Gap 10 (12-20); Aspartate Amino Transferase 8 U/L (5-31); Bilirubin Total 0.3 mg/dL (0.0-1.0); Blood Urea Nitrogen 13 mg/dL (9-16); Calcium 9.9 mg/dL (8.4-10.2); Carbon Dioxide 35 mmol/L (22-29); Chloride 99 mmol/L (96-108); Cholesterol 178 mg/dL (<200); Creatinine Clr Calc Pharmacy 140.8; Estimated Glomerular Filt Rate > 60; Glucose Fasting 141 mg/dL (60-99); HDL Cholesterol 60 mg/dL (>40); LDL Cholesterol Calculated 101 mg/dL (<100); Potassium 4.9 mmol/L (3.3-5.1); Sodium 139 mmol/L (135-145); Total Protein 6.2 g/dL (6.5-8.0); Triglycerides 87 mg/dL (<150)
[2024-05-27] MEDS: Acetaminophen 325 MG TABLET 650 MG PO (06:32)
--- NOTE | 2024-05-27 07:17 | PHA.MEDREC ---
Pharmacy Consult ? Medication Reconciliation Pharmacy has completed the medication reconciliation. Here 05/26/24 and was transferred to ICU. Utilized discharge packet.
[2024-05-27] MEDS: Albuterol/Iprat 2.5/0.5MG 3 ML AMPUL.NEB INHALE ×4 (07:27→19:30)
--- NOTE | 2024-05-27 07:59 | P.PNCC_ITS ---
Subjective Subjective Date of Service: 05/27/24 Interval History: admitted to ICU 05/26 PM d/t somnolence, though to be d/t polypharmacy; now interval improvement of somnolence Critical Care Time (minutes): 60 Physical Exam 2 Vital Signs: Vital Signs: Last Vital Signs Temp 97.4 F 05/26/24 23:00 Pulse 69 05/27/24 07:27 Resp 15 05/27/24 07:27 BP 117/67 05/27/24 04:00 Pulse Ox 92 05/27/24 04:00 O2 Del Method BiPAP 05/27/24 04:00 O2 Flow Rate 32 05/27/24 03:00 FiO2 32 05/27/24 04:00 BMI result Body Mass Index 43.8 Const: General: cooperative, healthy appearing, comfortable, no acute distress, well developed, alert, awake and Physically active O rientation/consciousness: patient oriented x3 HEENT: Head: Yes normal to inspection, Yes normocephalic and Yes atraumatic Eyes: General: appearance normal, both eyes and all related structures Neck: Neck: Yes normal visual inspection, Yes full ROM, Yes no meningeal signs, Yes trachea midline and Yes supple Chest: Chest palpation & inspection: normal inspection of the chest Resp: Other: some appreciable rales, wheezing; no appreciable rhonchi Effort & Inspection: normal respiratory effort GI: Inspection: Yes normal to inspection, No Abdominal wall edema and No distended Palpation (GI): Soft to palpation, not firm, nontender, no guarding and not rigid : External Female Exam: normal external appearance Skin: General skin exam: no rashes or lesions noted Neuro: General: patient oriented x3, tone normal, moves all extremities, no meningeal signs and no focal motor deficits Extrem: General: Yes normal to inspection, Yes full ROM, Yes capillary refill normal and Yes no clubbing, cyanosis or edema Psych: Appearance: grossly normal Objective Data Labs 05/27/24 04:52 05/27/24 04:52 Labs: Laboratory Results - last 24 hr 05/26/24 05/27/24 05/27/24 22:07 00:10 04:48 WBC 9.2 RBC 5.08 Hgb 15.4 Hct 51.9 H MCV 102.2 H MCH 30.3 MCHC 29.7 L RDW 13.9 Plt Count 252 MPV 9.4 Immature Gran % (Auto) 0.3 Neut % (Auto) 66.2 Lymph % (Auto) 24.2 [place] % (Auto) 7.2 Eos % (Auto) 1.4 Baso % (Auto) 0.7 Lymph # (Auto) 2.2 [place] # (Auto) 0.7 Eos # (Auto) 0.1 Baso # (Auto) 0.1 Abs Immat Gran (auto) 0.03 Absolute Neuts (auto) 6.1 Absolute Nucleated RBC 0.000 Nucleated RBC % (auto) 0.0 VBG pH 7.36 7.41 VBG pCO2 71 59 VBG pO2 41 70 VBG HCO3 41 H 38 H VBG O2 Saturation 70.0 96.0 VBG Base Excess 11.6 10.6 Sodium 142 Potassium 4.4 Chloride 96 Carbon Dioxide 38 H Anion Gap 12 BUN 15 Creatinine 0.80 Estim Creat Clear Calc TNP Estimated GFR > 60 Random Glucose 98 Fasting Glucose Lactic Acid 0.9 Calcium 9.8 Phosphorus Magnesium Total Bilirubin 0.3 AST 8 ALT 12 Alkaline Phosphatase 46 Troponin I High Sens 3.4 D B-Natriuretic Peptide 28 Total Protein 6.0 L Albumin 3.8 Triglycerides Cholesterol LDL Cholesterol, Calc HDL Cholesterol Hold Yellow Top See Note 05/27/24 05/27/24 05/27/24 04:52 04:52 04:52 WBC 8.5 RBC 5.10 Hgb 15.3 Hct 52.1 H MCV 102.2 H MCH 30.0 MCHC 29.4 L RDW 14.0 Plt Count 256 MPV 9.7 Immature Gran % (Auto) 0.5 H Neut % (Auto) 88.4 H Lymph % (Auto) 8.9 L [place] % (Auto) 1.9 L Eos % (Auto) 0.1 Baso % (Auto) 0.2 Lymph # (Auto) 0.8 L [place] # (Auto) 0.2 Eos # (Auto) 0.0 Baso # (Auto) 0.0 Abs Immat Gran (auto) 0.04 H Absolute Neuts (auto) 7.5 Absolute Nucleated RBC 0.000 Nucleated RBC % (auto) 0.0 VBG pH VBG pCO2 VBG pO2 VBG HCO3 VBG O2 Saturation VBG Base Excess Sodium 139 139 Potassium 4.9 4.9 Chloride 100 Carbon Dioxide Anion Gap BUN Creatinine Estim Creat Clear Calc Estimated GFR Random Glucose Fasting Glucose Lactic Acid Calcium Phosphorus Magnesium Total Bilirubin AST ALT Alkaline Phosphatase Troponin I High Sens B-Natriuretic Peptide Total Protein Albumin Triglycerides Cholesterol LDL Cholesterol, Calc HDL Cholesterol [facility] 05/27/24 05/27/24 05/27/24 04:52 04:52 04:52 WBC RBC Hgb Hct MCV MCH MCHC RDW Plt Count MPV Immature Gran % (Auto) Neut % (Auto) Lymph % (Auto) [place] % (Auto) Eos % (Auto) Baso % (Auto) Lymph # (Auto) [place] # (Auto) Eos # (Auto) Baso # (Auto) Abs Immat Gran (auto) Absolute Neuts (auto) Absolute Nucleated RBC Nucleated RBC % (auto) VBG pH VBG pCO2 VBG pO2 VBG HCO3 VBG O2 Saturation VBG Base Excess Sodium Potassium Chloride 99 Carbon Dioxide 33 H 35 H Anion Gap 11 L 10 L BUN 13 Creatinine Estim Creat Clear Calc Estimated GFR Random Glucose Fasting Glucose Lactic Acid Calcium Phosphorus Magnesium Total Bilirubin AST ALT Alkaline Phosphatase Troponin I High Sens B-Natriuretic Peptide Total Protein Albumin Triglycerides Cholesterol LDL Cholesterol, Calc HDL Cholesterol [facility] 05/27/24 05/27/24 05/27/24 04:52 04:52 04:52 WBC RBC Hgb Hct MCV MCH MCHC RDW Plt Count MPV Immature Gran % (Auto) Neut % (Auto) Lymph % (Auto) [place] % (Auto) Eos % (Auto) Baso % (Auto) Lymph # (Auto) [place] # (Auto) Eos # (Auto) Baso # (Auto) Abs Immat Gran (auto) Absolute Neuts (auto) Absolute Nucleated RBC Nucleated RBC % (auto) VBG pH VBG pCO2 VBG pO2 VBG HCO3 VBG O2 Saturation VBG Base Excess Sodium Potassium Chloride Carbon Dioxide Anion Gap BUN 13 Creatinine 0.63 0.62 Estim Creat Clear Calc 138.5 140.8 Estimated GFR > 60 Random Glucose Fasting Glucose Lactic Acid Calcium Phosphorus Magnesium Total Bilirubin AST ALT Alkaline Phosphatase Troponin I High Sens B-Natriuretic Peptide Total Protein Albumin Triglycerides Cholesterol LDL Cholesterol, Calc HDL Cholesterol [facility] 05/27/24 05/27/24 05/27/24 04:52 04:52 04:52 WBC RBC Hgb Hct MCV MCH MCHC RDW Plt Count MPV Immature Gran % (Auto) Neut % (Auto) Lymph % (Auto) [place] % (Auto) Eos % (Auto) Baso % (Auto) Lymph # (Auto) [place] # (Auto) Eos # (Auto) Baso # (Auto) Abs Immat Gran (auto) Absolute Neuts (auto) Absolute Nucleated RBC Nucleated RBC % (auto) VBG pH VBG pCO2 VBG pO2 VBG HCO3 VBG O2 Saturation VBG Base Excess Sodium Potassium Chloride Carbon Dioxide Anion Gap BUN Creatinine Estim Creat Clear Calc Estimated GFR > 60 Random Glucose 142 H Fasting Glucose 141 H Lactic Acid Calcium 9.9 9.9 Phosphorus 2.6 L Magnesium 1.9 Total Bilirubin 0.2 0.3 AST 7 ALT Alkaline Phosphatase Troponin I High Sens B-Natriuretic Peptide Total Protein Albumin Triglycerides Cholesterol LDL Cholesterol, Calc HDL Cholesterol Hold Yellow Top 05/27/24 05/27/24 05/27/24 04:52 04:52 04:52 WBC RBC Hgb Hct MCV MCH MCHC RDW Plt Count MPV Immature Gran % (Auto) Neut % (Auto) Lymph % (Auto) [place] % (Auto) Eos % (Auto) Baso % (Auto) Lymph # (Auto) [place] # (Auto) Eos # (Auto) Baso # (Auto) Abs Immat Gran (auto) Absolute Neuts (auto) Absolute Nucleated RBC Nucleated RBC % (auto) VBG pH VBG pCO2 VBG pO2 VBG HCO3 VBG O2 Saturation VBG Base Excess Sodium Potassium Chloride Carbon Dioxide Anion Gap BUN Creatinine Estim Creat Clear Calc Estimated GFR Random Glucose Fasting Glucose Lactic Acid Calcium Phosphorus Magnesium Total Bilirubin AST 8 ALT 12 12 Alkaline Phosphatase 46 47 Troponin I High Sens B-Natriuretic Peptide Total Protein 6.1 L Albumin Triglycerides Cholesterol LDL Cholesterol, Calc HDL Cholesterol Hold Yellow Top 05/27/24 05/27/24 04:52 04:52 WBC RBC Hgb Hct MCV MCH MCHC RDW Plt Count MPV Immature Gran % (Auto) Neut % (Auto) Lymph % (Auto) [place] % (Auto) Eos % (Auto) Baso % (Auto) Lymph # (Auto) [place] # (Auto) Eos # (Auto) Baso # (Auto) Abs Immat Gran (auto) Absolute Neuts (auto) Absolute Nucleated RBC Nucleated RBC % (auto) VBG pH VBG pCO2 VBG pO2 VBG HCO3 VBG O2 Saturation VBG Base Excess Sodium Potassium Chloride Carbon Dioxide Anion Gap BUN Creatinine Estim Creat Clear Calc Estimated GFR Random Glucose Fasting Glucose Lactic Acid Calcium Phosphorus Magnesium Total Bilirubin AST ALT Alkaline Phosphatase Troponin I High Sens B-Natriuretic Peptide Total Protein 6.2 L Albumin 3.8 3.8 Triglycerides 87 Cholesterol 178 LDL Cholesterol, Calc 101 H HDL Cholesterol 60 Hold Yellow Top Progress Note: A&P Assessment and plan (1) Acute on chronic respiratory failure with hypoxia and hypercapnia: Status: Acute (2) COPD (chronic obstructive pulmonary disease): Status: Acute (3) Obesity hypoventilation syndrome: Status: Acute (4) FABIOLA (obstructive sleep apnea): Status: Acute (5) Bipolar I disorder: Status: Chronic (6) Suicidal ideation: Status: Inactive (7) Substance abuse: Status: Acute Plan Patient is a 54 Y F w/ morbid obesity, c/b OHS, FABIOLA, COPD, c/b chronic mixed respiratory failure, prior pulmonary embolism on apixaban, and bipolar disorder, presenting initially to psychiatric hospital d/t suicidal ideation w/ plan, admitted to psychiatry; on 05/26 PM, patient found to be obtunded, in hypercarbic respiratory failure, admitted ICU on BiPAP N: obtundation, markedly improved; judicious use of potentially sedating medications CV: no acute issues R: COPD, FABIOLA, OHS, c/b acute on chronic mixed respiratory failure, thought to be d/t polypharmacy; chest x-ray unrevealing; empiric COPD treatment w/ DuoNebs, steroids, and antibiotics; BiPAP when sleeping GI: regular diet : no acute issues H: no acute issues; prior PE on apixaban ID: possible COPD exacerbation, empiric antibiotics E: to monitor hypo-/hyper-glycemia P: bipolar disorder; suicidal ideation w/ plan; sitter; appreciable psychiatry recommendations; judicious use of potentially sedating medications Quality Stroke Does the patient have a stroke diagnosis?: No VTE Prior VTE?: No VTE Risk Level:: Medical - moderate - high VTE Device Contraindication: Treatment Not Indicated VTE Drug Contraindication: N/A - Med Ordered
[2024-05-27] MEDS: Lidocaine 4 % Patch ADH..PATCH 2 PATCH TRANSDERMA (08:39)
[2024-05-27] MEDS: Sodium,Potassium Phosphates POWD.PACK 1 PACKET PO (08:39)
[2024-05-27] MEDS: Apixaban 5 MG TABLET PO ×2 (08:39→21:15)
[2024-05-27] MEDS: Furosemide 20 MG/2 ML VIAL 10 MG IVPUSH (08:39)
[2024-05-27] MEDS: Magnesium Sulfate/D5W 1 GM/100 ML PIGGYBACK IV (08:40)
[2024-05-27] MEDS: 0.9 % Sodium Chloride Flush 3 ML SYRINGE IVFLUSH ×3 (08:42→21:15)
[2024-05-27] MEDS: Azithromycin 250 MG TABLET PO (09:32)
[2024-05-27] MEDS: Lithium Carbonate ER 450 MG TABLET.ER PO ×3 (09:32→21:14)
[2024-05-27 09:58] LABS: Lithium 0.75 mmol/L (0.60-1.20)
[2024-05-27 10:39] LABS: TSH reflex Free T4 0.39 uIU/mL (0.32-4.0)
--- NOTE | 2024-05-27 12:27 | MHC.CM.PN ---
Addendum entered by Sherri Escudero 05/27/24 12:38: PT HAS HCP ON FILE/VERIFIED. Original Note: CM MET WITH PT AT BEDSIDE. 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 PT USES A WALKER FOR MOBILITY. PT USES HOME 02 AT [address] AND VENDOR IS [employer]. PT HAS NEBULIZER AND CPAP THROUGH ANOTHER COMPANY. PT DECLINES TO NAME A HCP AT THIS TIME, TEARFUL AND EASILY DISTRACTED. CM WILL RE-APPROACH WHEN CALMER. PCP DR. MARQUEZ DP: HOME WITH [facility]UMPT[facility] OF [facility] IS THE GOAL. RETURN REFERRAL SENT TO [facility]. PT WILL NEED BLS TRANSPORT DUE TO . CM WILL CONTINUE TO FOLLOW FOR ANY CHANGE TO DC PLAN/NEEDS.
--- NOTE | 2024-05-27 14:02 | PM.EVENT ---
Event Note Date of Service: 05/27/24 Event Note: Patient admitted to inpatient psych for suicidal ideation. Had rapid response on psychiatric floor and admitted to the medical floor for acute on chronic respiratory failure. Noted to be hypercapnic and requiring BiPAP therefore transfer to the ICU where she briefly required BiPAP. She was downgraded to the medical floor this morning in his currently on 2 L of supplemental oxygen. Thought to be partially related to polypharmacy, majority of psych medications have been placed on hold. We will consult psych for medication adjustment. We will need to care team evaluation prior to discharge for level of care evaluation.1:1 for safety Time Spent With Patient Time: Total time managing care of this patient today ____ minutes.
[2024-05-28 03:56] VITALS: BP 132/68; PULSE 71; RESP 18; TEMP 36.1; O2SAT 97
[2024-05-28] MEDS: methylPREDNISolone Sod Succ 40 MG/ML VIAL IVPUSH (05:40)
[2024-05-28 05:47] VITALS: BMI 45.6
--- NOTE | 2024-05-28 06:00 | ECG_ITS ---
Test Reason : qtc check Blood Pressure : / mmHG Vent. Rate : 073 BPM Atrial Rate : 073 BPM P-R Int : 146 ms QRS Dur : 082 ms QT Int : 382 ms P-R-T Axes : -11 037 045 degrees QTc Int : 420 ms Normal sinus rhythm Normal ECG When compared with ECG of 26-MAY-2024 09:21, No significant change was found Referred By: Amaya Sullivan Electronically Signed By:Deangelo Gutierres
[2024-05-28 07:38] VITALS: BP 125/59; PULSE 73; RESP 18; TEMP 36.6; O2SAT 94
[2024-05-28] MEDS: Albuterol/Iprat 2.5/0.5MG 3 ML AMPUL.NEB INHALE ×2 (07:47→11:16)
[2024-05-28 07:49] VITALS: PULSE 79; RESP 20; O2SAT 91
[2024-05-28] MEDS: Apixaban 5 MG TABLET PO (09:34)
[2024-05-28] MEDS: predniSONE 20 MG TABLET 40 MG PO (09:34)
[2024-05-28] MEDS: Lidocaine 4 % Patch ADH..PATCH 2 PATCH TRANSDERMA (09:35)
[2024-05-28] MEDS: hydrOXYzine HCL 25 MG TABLET PO (09:35)
[2024-05-28] MEDS: Azithromycin 250 MG TABLET PO (09:35)
[2024-05-28] MEDS: Lithium Carbonate ER 450 MG TABLET.ER PO (09:35)
[2024-05-28] MEDS: Ferrous Sulfate 324 MG TABLET.DR PO (09:35)
[2024-05-28] MEDS: Cyanocobalamin (Vitamin B-12) 1,000 MCG TABLET 1000 MCG PO (09:35)
[2024-05-28] MEDS: Acetaminophen 325 MG TABLET 650 MG PO (09:36)
[2024-05-28] MEDS: 0.9 % Sodium Chloride Flush 3 ML SYRINGE IVFLUSH (09:36)
[2024-05-28] MEDS: Tiotropium Bromide 2.5 mcg 1 PUFF/2.5 MCG MIST.INHAL 2 PUFF INHALE (11:17)
[2024-05-28] MEDS: Fluticasone/Vilanterol 100/25 BLST.W.DEV 1 PUFF INHALE (11:17)
[2024-05-28 11:19] VITALS: PULSE 57; RESP 18; O2SAT 95
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
--- NOTE | 2024-05-28 11:37 | MHC.CM.PN ---
Per MD and Psych, Patient is cleared for dc to home today with resumption of [facility] VNA services (VNA has been made aware of today's dc). Patient will dc to home via [facility] at 12:45 PM; Patient has the transport voucher.
--- NOTE | 2024-05-28 11:37 | PM.DS ---
DS: Providers Provider Date of Service: 05/28/24 Date of admission: 05/26/24 20:54 Primary care physician: Unknown Physician Consults: 05/27/24 14:08 Consult to Psychiatry Routine Consulting Provider: Psych Covering Reason for consultation: SI; from psych floor Has provider been notified: No 05/27/24 14:09 Consult for Sitter Routine Reason for consultation: safety; from psych with SI Has provider been notified: No 05/28/24 08:17 Consult to Care Team Routine Comment: Reason for consultation: si DS: Diagnosis Discharge Diagnosis (1) Acute on chronic respiratory failure with hypoxia and hypercapnia: Status: Acute (2) Obesity hypoventilation syndrome: Status: Acute (3) FABIOLA (obstructive sleep apnea): Status: Acute (4) Bipolar I disorder: Status: Chronic (5) Suicidal ideation: Status: Inactive (6) Acute exacerbation of chronic obstructive airways disease: Status: Inactive (7) Accidental overdose of gabapentin: Status: Acute DS: Summary Hospital Course Hospital Course: From the history and physical by the admitting hospitalist, Chaya Fierro, 05/26/24: Bhavana Garza is a 54 years old woman with past medical history significant for obstructive sleep apnea, pulmonary embolism on Eliquis, COPD, multiple hospitalization due to respiratory failure and bipolar disorder was admitted under psychiatric service yesterday due to suicidal ideation and plan. Rapid response team was activated because she was found to have decreased level of consciousness and marked low O2 saturation, 70s. All vital signs are stable. On evaluation, patient was very responsive with awakening to sternal rub. Cardiopulmonary exam basically unremarkable. Her CPAP mass measuring was placed on supplemental oxygen via nasal cannula per RT. ABGs stat obtained respiratory acidosis and hypoxemia with a PO2 of 73. Bicarb is 42. Case has been discussed with mortgage loan counselor Dr. Sullivan who said the patient to the ICU for respiratory support with rescue BiPAP. She was briefly in the ICU for BiPAP rescue and weaned off quickly as her mental status returned to normal. Sedation was attributed to her having taken an extra dose of gabapentin. She was downgraded to the IMC on 2L of O2 via nasal cannula. She was treated with prednisone taper. She was seen by the CARE Team and Psychiatry and cleared for discharge home without need for further inpatient psychiatric treatment. All SI resolved and she expressed regret about taking extra gabapentin. Per consulting psychiatrist: And while she remains vulnerable to relapse and mood dysregulation, this is a chronic issue, one with which she is well aware, has been approving upon and will not resolve with readmission to a psychiatric unit. Patient is appropriate to return to the community and to continue home medications.. She is not in imminent risk for harm to self or others and does not meet criteria for involuntary commitment. She was discharged home on prednisone taper. She will continue home oxygen and was advised to follow up with her primary care doctor to arrange CPAP if needed based on the results of her outpatient sleep study. She was also counseled to quit smoking. Time Attestation Discharge Coordination Time (in mins): 40 Quality: Safe Use of Opioids Does Pt have an Active Cancer Diagnosis on the Problem List?: No Quality: Stroke Does the patient have a stroke diagnosis?: No Physical Exam Vital Signs: Vital Signs: Last Vital Signs Temp 97.9 F 05/28/24 07:38 Pulse 57 05/28/24 11:19 Resp 18 05/28/24 11:19 BP 125/59 L 05/28/24 07:38 Pulse Ox 94 05/28/24 07:38 O2 Del Method Nasal Cannula 05/28/24 07:38 O2 Flow Rate 4 05/28/24 07:38 FiO2 32 05/27/24 04:00 BMI result Body Mass Index 45.6 Gen: in no acute distress HEENT: sclera anicteric, moist mucus membranes Neck: supple Lungs: clear to auscultation bilaterally Heart: regular rate and rhythm, no murmurs Abd: soft, non-tender, non-distended, obese Ext: no edema Skin: warm/well-perfused Neuro: alert and oriented x3, no focal findings Psych: appropriate affect DS: Data Data Completed and Pending Completed studies during hospitalization [Text1]: Laboratory Results WBC 8.5 X10*3/uL (4.8-10.8) 05/27/24 04:52 RBC 5.10 X10*6/uL (4.20-5.50) 05/27/24 04:52 Hgb 15.3 g/dl (12.0-16.0) 05/27/24 04:52 Hct 52.1 % (37.0-47.0) H 05/27/24 04:52 MCV 102.2 fL (80.0-98.0) H 05/27/24 04:52 MCH 30.0 pg (27.0-33.0) 05/27/24 04:52 MCHC 29.4 g/dl (31.0-35.0) L 05/27/24 04:52 RDW 14.0 % (11.0-16.0) 05/27/24 04:52 Plt Count 256 X10*3/uL (160-400) 05/27/24 04:52 MPV 9.7 fL (9.4-12.3) 05/27/24 04:52 Immature Gran % (Auto) 0.5 % (0.0-0.4) H 05/27/24 04:52 Neut % (Auto) 88.4 % (45-73) H 05/27/24 04:52 Lymph % (Auto) 8.9 % (20-40) L 05/27/24 04:52 [place] % (Auto) 1.9 % (2-11) L 05/27/24 04:52 Eos % (Auto) 0.1 % (0-4) 05/27/24 04:52 Baso % (Auto) 0.2 % (0-2) 05/27/24 04:52 Lymph # (Auto) 0.8 X10*3/uL (1.2-4.9) L 05/27/24 04:52 [place] # (Auto) 0.2 X10*3/uL (0.1-1.2) 05/27/24 04:52 Eos # (Auto) 0.0 X10*3/uL (0.0-0.4) 05/27/24 04:52 Baso # (Auto) 0.0 X10*3/uL (0.0-0.2) 05/27/24 04:52 Abs Immat Gran (auto) 0.04 X10*3/uL (0.00-0.03) H 05/27/24 04:52 Absolute Neuts (auto) 7.5 x10*3/uL (2.0-8.3) 05/27/24 04:52 Absolute Nucleated RBC 0.000 X10*3/uL (0.0-0.012) 05/27/24 04:52 Nucleated RBC % (auto) 0.0 /100WBC (0.0-0.2) 05/27/24 04:52 Hold Purple Top SEE NOTE 05/27/24 09:06 VBG pH 7.41 (7.32-7.43) 05/27/24 04:48 VBG pCO2 59 mmHg 05/27/24 04:48 VBG pO2 70 mmHg 05/27/24 04:48 VBG HCO3 38 mmol/L (22-26) H 05/27/24 04:48 VBG O2 Saturation 96.0 % 05/27/24 04:48 VBG Base Excess 10.6 mmol/L 05/27/24 04:48 Sodium 139 mmol/L (135-145) 05/27/24 04:52 Sodium 139 mmol/L (135-145) 05/27/24 04:52 Potassium 4.9 mmol/L (3.3-5.1) 05/27/24 04:52 Potassium 4.9 mmol/L (3.3-5.1) 05/27/24 04:52 Chloride 99 mmol/L (96-108) 05/27/24 04:52 Chloride 100 mmol/L (96-108) 05/27/24 04:52 Carbon Dioxide 33 mmol/L (22-29) H 05/27/24 04:52 Carbon Dioxide 35 mmol/L (22-29) H 05/27/24 04:52 Anion Gap 10 (12-20) L 05/27/24 04:52 Anion Gap 11 (12-20) L 05/27/24 04:52 BUN 13 mg/dL (9-16) 05/27/24 04:52 BUN 13 mg/dL (9-16) 05/27/24 04:52 Creatinine 0.62 mg/dL (0.5-1.4) 05/27/24 04:52 Creatinine 0.63 mg/dL (0.5-1.4) 05/27/24 04:52 Estim Creat Clear Calc 138.5 05/27/24 04:52 Estim Creat Clear Calc 140.8 05/27/24 04:52 Estimated GFR > 60 05/27/24 04:52 Estimated GFR > 60 05/27/24 04:52 Random Glucose 142 mg/dL (60-115) H 05/27/24 04:52 Fasting Glucose 141 mg/dL (60-99) H 05/27/24 04:52 Lactic Acid 0.9 mmol/L (0.5-2.0) 05/26/24 22:07 Calcium 9.9 mg/dL (8.4-10.2) 05/27/24 04:52 Calcium 9.9 mg/dL (8.4-10.2) 05/27/24 04:52 Phosphorus 2.6 mg/dL (2.7-4.5) L 05/27/24 04:52 Magnesium 1.9 mg/dL (1.6-2.6) 05/27/24 04:52 Total Bilirubin 0.2 mg/dL (0.0-1.0) 05/27/24 04:52 Total Bilirubin 0.3 mg/dL (0.0-1.0) 05/27/24 04:52 AST 7 U/L (5-31) 05/27/24 04:52 AST 8 U/L (5-31) 05/27/24 04:52 ALT 12 U/L (0-31) 05/27/24 04:52 ALT 12 U/L (0-31) 05/27/24 04:52 Alkaline Phosphatase 46 U/L (39-117) 05/27/24 04:52 Alkaline Phosphatase 47 U/L (39-117) 05/27/24 04:52 Troponin I High Sens 3.4 ng/L (<3.5-17.0) D 05/26/24 22:07 B-Natriuretic Peptide 28 pg/mL (<100) 05/26/24 22:07 Total Protein 6.1 g/dL (6.5-8.0) L 05/27/24 04:52 Total Protein 6.2 g/dL (6.5-8.0) L 05/27/24 04:52 Albumin 3.8 g/dL (3.5-5.0) 05/27/24 04:52 Albumin 3.8 g/dL (3.5-5.0) 05/27/24 04:52 Triglycerides 87 mg/dL (<150) 05/27/24 04:52 Cholesterol 178 mg/dL (<200) 05/27/24 04:52 LDL Cholesterol, Calc 101 mg/dL (<100) H 05/27/24 04:52 HDL Cholesterol 60 mg/dL (>40) 05/27/24 04:52 TSH 0.39 uIU/mL (0.32-4.0) 05/27/24 09:06 Hold Yellow Top See Note 05/26/24 22:07 [place] 0.75 mmol/L (0.60-1.20) 05/27/24 09:06 Impressions Chest X-Ray 05/26/24 21:31 IMPRESSION: Mild pulmonary vascular congestion. Discharge Plan Discharge Anticipated Discharge Date/Time: 05/28/24 11:31 Patient Disposition: Home Health Service Discharge Diagnosis: acute/chronic hypercapneic respiratory failure COPD exacerbation bipolar disorder with suicidal ideation Referrals: Kam Brock [Outside] - 1 Week Mike Malone MD [Physician] - 1 Week Discharge Medications: New nicotine (polacrilex) 2 mg Gum 2 mg buccal Q2H PRN (Reason: Nicotine Cravings) Qty: 100 0RF nicotine 21 mg/24 hr Patch 24 Hour 21 mg transdermal DAILY PRN (Reason: Nicotine Cravings) Qty: 30 0RF prednisone 10 mg tablet See Rx Instructions .ROUTE .COMPLEX Qty: 40 0RF Rx Instructions: 40 mg daily x 4 days, then 30 mg daily x 4 days, then 20 mg daily x 4 days, then 10 mg daily x 4 days Continued ropinirole 1 mg Tablet 1 mg PO BEDTIME Qty: 30 0RF olanzapine 10 mg Tablet 10 mg PO BEDTIME Qty: 30 0RF clonidine HCl 0.2 mg Tablet 0.2 mg PO BEDTIME Qty: 30 0RF Protocol: Hold for SBP< HOLD for SBP < : 90 tiotropium bromide [Spiriva with HandiHaler] 18 mcg Capsule, W/Inhalation Device 18 mcg inhalation RDAILY Qty: 20 0RF cetirizine 10 mg Tablet 10 mg PO DAILY PRN (Reason: Allergy Symptoms) melatonin 3 mg Tablet 3 mg PO BEDTIME gabapentin 300 mg capsule 300 mg PO TID cholecalciferol (vitamin D3) [Vitamin D3] 25 mcg (1,000 unit) tablet 25 mcg PO DAILY ferrous sulfate 325 mg (65 mg iron) Tablet 325 mg PO MOWEFR@0900 fluticasone propion-salmeterol [Advair HFA] 115-21 mcg/actuation Hfa Aerosol Inhaler 2 puff INHALATION BID pantoprazole 20 mg Tablet,Delayed Release (Dr/Ec) 20 mg PO DAILY@0630 Eliquis 5 mg Tablet 5 mg PO BID Qty: 60 0RF lithium carbonate 450 mg tablet extended release 450 mg PO TID cyanocobalamin (vitamin B-12) [Vitamin B-12] 1,000 mcg tablet 1,000 mcg PO DAILY ipratropium-albuterol 0.5 mg-3 mg(2.5 mg base)/3 mL solution for nebulization 3 ml inhalation RQ6H PRN (Reason: Shortness Of Breath Or Wheezing) Discharge Orders: Discharge Order (Routine); Ordered 05/28/24 Ordered By: Bertrand Caldwell Activity on Discharge: As tolerated Stand Alone Forms: Patient Portal Discharge page Print Language: Telugu Care Plan Goals: respiratory and mental health Health Concerns: acute/chronic hypercapneic respiratory failure COPD exacerbation bipolar disorder with suicidal ideation Plan of Treatment: prednisone 10 mg tabs, taper as follows: 40 mg (4 tabs) daily x 4 days, then 30 mg (3 tabs) daily x 4 days, then 20 mg (2 tabs) daily x 4 days, then 10 mg (1 tab) daily x 4 days continue home oxygen follow up with your PCP for sleep study/CPAP quit smoking follow up with your outpatient mental health providers and continue your medications exactly as prescribed. do not take excess medication! Please follow up with your primary care doctor within 1 week. Return to the hospital if you experience recurrent or worsening symptoms. Assessment: See Discharge Summary.
[2024-05-28 12:00] VITALS: BP 127/74; PULSE 74; RESP 19; TEMP 36.4; O2SAT 94
== END 2024-05-28 12:56 | disposition home health service (06) | DRG 753 ==
LOC: HO.ICU 05-27 10:35 → HO.IMC 05-27 10:58
PROVIDERS: Internal Medicine Critical Care Medicine; Nurse Practitioner Family; Admitting Provider Internal Medicine; PCP Internal Medicine; Visit Provider Family Medicine
DX: F31.9 Bipolar disorder, unspecified (principal); J96.21 Acute and chronic respiratory failure with hypoxia; G92.8 Other toxic encephalopathy; T42.6X1A Poisoning by other antiepileptic and sedative-hypnotic drugs, accidental (unintentional), initial encounter; T40.5X1A Poisoning by cocaine, accidental (unintentional), initial encounter; J44.1 Chronic obstructive pulmonary disease with (acute) exacerbation; R45.851 Suicidal ideations; E66.2 Morbid (severe) obesity with alveolar hypoventilation; J96.22 Acute and chronic respiratory failure with hypercapnia; F17.210 Nicotine dependence, cigarettes, uncomplicated; F60.3 Borderline personality disorder; F14.10 Cocaine abuse, uncomplicated; Z71.6 Tobacco abuse counseling; Z86.711 Personal history of pulmonary embolism; Z68.42 Body mass index [BMI] 45.0-49.9, adult; Z91.040 Latex allergy status; Z79.01 Long term (current) use of anticoagulants; Z79.899 Other long term (current) drug therapy
CPT/HCPCS: 36415; 71045; 80053; 80061; 80178; 82803; 83605; 83735; 83880; 84100; 84443; 84484; 85025; 93005; 94640; 94660; J1940; J2919; J3475; S9485

== ENCOUNTER 2024-05-26 20:54 | Outpatient (BNV) | payer MEDICAID, SELFPAY | END 2024-05-28 06:00 | PROVIDERS: Admitting Provider Internal Medicine; Visit Provider Internal Medicine Cardiovascular Disease | DX: Z51.81 Encounter for therapeutic drug level monitoring (principal) | CPT/HCPCS: 93010 ==

== ENCOUNTER → 2024-05-26 20:54 | Outpatient (BNV) | payer OTHER, SELFPAY | PROVIDERS: Admitting Provider Internal Medicine; Visit Provider Psychiatry & Neurology Psychiatry | DX: F60.3 Borderline personality disorder (principal); F31.4 Bipolar disorder, current episode depressed, severe, without psychotic features; J44.9 Chronic obstructive pulmonary disease, unspecified; G47.33 Obstructive sleep apnea (adult) (pediatric) | CPT/HCPCS: 99232 ==

== ENCOUNTER → 2024-05-26 20:54 | Outpatient (BNV) | payer MEDICAID, SELFPAY | PROVIDERS: Admitting Provider Internal Medicine; Visit Provider Internal Medicine | DX: J96.21 Acute and chronic respiratory failure with hypoxia (principal); J96.22 Acute and chronic respiratory failure with hypercapnia; E66.2 Morbid (severe) obesity with alveolar hypoventilation; G47.33 Obstructive sleep apnea (adult) (pediatric); F31.9 Bipolar disorder, unspecified; R45.851 Suicidal ideations; J44.1 Chronic obstructive pulmonary disease with (acute) exacerbation; T42.6X1A Poisoning by other antiepileptic and sedative-hypnotic drugs, accidental (unintentional), initial encounter | CPT/HCPCS: 99223; 99239; 99499 ==

== ENCOUNTER → 2024-05-26 20:54 | Outpatient (BNV) | payer MEDICAID, SELFPAY | PROVIDERS: Admitting Provider Internal Medicine; Visit Provider Internal Medicine Critical Care Medicine | DX: J44.9 Chronic obstructive pulmonary disease, unspecified (principal); J96.21 Acute and chronic respiratory failure with hypoxia; J96.22 Acute and chronic respiratory failure with hypercapnia; E66.2 Morbid (severe) obesity with alveolar hypoventilation | CPT/HCPCS: 99291 ==

== ENCOUNTER 2024-06-05 09:11 | Inpatient (IN) | payer MEDICAID, SELFPAY ==
[2024-06-05] VITALS (10 sets, daily range): BP systolic 128–154; BP diastolic 69–84; PULSE 79–99; RESP 16–20; TEMP 36.1–37; O2SAT 89–94; BMI 47.3
--- NOTE | ~2024-06-05 | XR_ITS ---
EXAMINATION: XR CHEST CLINICAL INFORMATION: Cough. COMPARISON: 05/26/2024 at 9:23 PM. TECHNIQUE: Frontal view of the chest was obtained. FINDINGS: The lung volumes are low. There is no gross pneumothorax. Stable cardiomediastinal silhouette. Mild prominence of the diffuse parenchymal markings may represent mild vascular congestion. Trace bilateral pleural effusions. Mild bibasilar opacities, left greater than right, likely represent atelectasis, although an infectious/inflammatory process should also be considered in the appropriate clinical setting. XR/XR chest 1V IMPRESSION: 1. Mild prominence of the diffuse parenchymal markings may represent mild vascular congestion. Trace bilateral pleural effusions. 2. Mild bibasilar opacities, left greater than right, likely represent atelectasis, although an infectious/inflammatory process should also be considered in the appropriate clinical setting. This study was presented today, June 05, 2024, for interpretation. Stat results provided at this time as requested by referring provider.
--- NOTE | 2024-06-05 09:37 | MHC.EDTECH ---
this tech assisted patient to bedside jasvir major presented dizziness in transfer
--- NOTE | 2024-06-05 09:44 | ECG_ITS ---
Test Reason : CHEST PAIN Blood Pressure : / mmHG Vent. Rate : 080 BPM Atrial Rate : 080 BPM P-R Int : 140 ms QRS Dur : 082 ms QT Int : 384 ms P-R-T Axes : 021 032 020 degrees QTc Int : 442 ms Normal sinus rhythm Normal ECG When compared with ECG of 28-MAY-2024 07:27, No significant change was found Referred By: Chon Seals Electronically Signed By:VAIBHAV KILLIAN MD
--- NOTE | 2024-06-05 09:56 | ED_ITS ---
HPI - SOB/Dyspnea General Chief Complaint: Upper Respiratory Symptoms Stated Complaint: sob, hx of copd, chf, asthma, psych Time Seen by Provider: 06/05/24 09:42 Source: patient Mode of arrival: EMS Limitations: no limitations History of Present Illness HPI Narrative: This is a 54 years old patient with history of COPD O2 dependent who still smokes presented to the ED by ambulance with a chief complaint of shortness of breath or wheezing. She was given Solu-Medrol 125 mg by the EMS along with DuoNeb. Her symptoms started yesterday. Denies any fever chills vomiting MD elicited complaint: shortness of breath and cough Pertinent past history: COPD Onset (ago): day(s) (1) Context: recent illness Timing: constant Severity: moderate Exacerbating factors: nothing Known history of: COPD Associated symptoms: denies other symptoms Related Data Home Medications ?Medication ?Instructions ?Recorded ?Confirmed lithium carbonate 450 mg 450 mg PO TID 05/14/23 05/27/24 tablet,extended release cyanocobalamin (vitamin B-12) 1,000 mcg PO DAILY 06/11/23 05/27/24 1,000 mcg tablet (Vitamin B-12) ipratropium 0.5 mg-albuterol 3 mg 3 ml inhalation RQ6H PRN Shortness 06/11/23 05/27/24 (2.5 mg base)/3 mL nebulization Of Breath Or Wheezing soln cetirizine 10 mg tablet 10 mg PO DAILY PRN Allergy Symptoms 12/19/23 05/27/24 melatonin 3 mg tablet 3 mg PO BEDTIME 12/19/23 05/27/24 cholecalciferol (vitamin D3) 25 25 mcg PO DAILY 02/20/24 05/27/24 mcg (1,000 unit) tablet (Vitamin D3) gabapentin 300 mg capsule 300 mg PO TID 02/20/24 05/27/24 ferrous sulfate 325 mg (65 mg 325 mg PO MOWEFR@0900 05/10/24 05/27/24 iron) tablet fluticasone propionate 115 2 puff inhalation BID 05/10/24 05/27/24 mcg-salmeterol 21 mcg/actuation HFA inhaler (Advair HFA) pantoprazole 20 mg tablet,delayed 20 mg PO DAILY@0630 05/10/24 05/27/24 release Previous Rx's ?Medication ?Instructions ?Recorded clonidine HCl 0.2 mg tablet 0.2 mg PO BEDTIME #30 tabs 03/22/23 olanzapine 10 mg tablet 10 mg PO BEDTIME #30 tabs 03/22/23 ropinirole 1 mg tablet 1 mg PO BEDTIME #30 tabs 03/22/23 tiotropium bromide 18 mcg capsule 18 mcg inhalation RDAILY #20 03/22/23 with inhalation device (Spiriva inhalations with HandiHaler) apixaban 5 mg tablet (Eliquis) 5 mg PO BID #60 tabs 05/12/24 nicotine (polacrilex) 2 mg gum 2 mg buccal Q2H PRN Nicotine 05/28/24 Cravings #100 ea nicotine 21 mg/24 hr daily 21 mg transdermal DAILY PRN 05/28/24 transdermal patch Nicotine Cravings #30 ea prednisone 10 mg tablet See Rx Instructions .Route 05/28/24 .COMPLEX #40 tabs Allergies Allergy/AdvReac Type Severity Reaction Status Date / Time aspirin Allergy Mild Anaphylaxis Verified 06/05/24 09:20 ampicillin Allergy Rash Verified 06/05/24 09:20 Penicillins Allergy Anaphylaxis Verified 06/05/24 09:20 latex AdvReac Rash Verified 06/05/24 09:20 Latex, Natural Rubber AdvReac Rash Verified 06/05/24 09:20 seafood AdvReac Anaphylaxis Verified 06/05/24 09:20 Sulfa (Sulfonamide AdvReac Hives Verified 06/05/24 09:20 Antibiotics) Review of Systems 2 ENT: Reports system reviewed and no additional complaints, except as documented Cardiovascular: Cardiovascular: Reports no additional cardiovascular complaints and Reports dyspnea Respiratory: Respiratory: Reports cough and Reports dyspnea PMFSH Past Medical History Attestation statement: The following information was validated with the patient. Source: unable to obtain Medical History FABIOLA (obstructive sleep apnea) Asthma Morbid obesity Intentional overdose Acute bronchospasm Bipolar I disorder with depression Overdose on Tylenol Suicide attempt Asthma COPD (chronic obstructive pulmonary disease) Chronic lung disease Neoplasm of parotid gland Depression 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 Drug abuse Bipolar I disorder Post traumatic stress disorder (PTSD) Tobacco use disorder Borderline personality disorder Intermittent explosive disorder Asthma exacerbation in COPD Herpes Tobacco use Bipolar disorder COPD (chronic obstructive pulmonary disease) Surgical History History of ankle surgery History of back surgery Hx of cholecystectomy History of appendectomy Family History Family History Mother COPD (chronic obstructive pulmonary disease) Social History Social History Household Members: None Household Members Other:: So Housing: Apartment Housing Other:: Sleeps on the couch at [facility] house Do you presently have visiting nurse or other home services: No Unable to assess alcohol history related to: Unknown Alcohol intake: former Comment: Sitter in room Patient Tobacco Use Status: Current someday Tobacco user Tobacco use type: Cigarette Cigarette Packs Per Day: 1 Cigarettes Per Day: 20.0 Years Smoked: 20 Smoked in Last 30 Days: Yes e-Cigarette/Vaping Use: Currently Using Second Hand Smoke Exposure: No Use of substances other than those prescribed or required for medical reasons: No Substance Use Type: Crack/Cocaine Advance Directives: Yes Advance Directives on File: Yes Advance Directives Date on File: 06/17/22 Do you have a plan to hurt others: No Plan service: No Current occupational status: unemployed and disabled Sexual orientation: Straight/Heterosexual Physical Exam 2 Vital Signs: Vital Signs: Last Vital Signs Temp 98.6 F 06/05/24 14:41 Pulse 84 06/05/24 14:41 Resp 18 06/05/24 14:41 BP 154/81 H 06/05/24 14:41 Pulse Ox 89 L 06/05/24 14:41 O2 Del Method Nasal Cannula 06/05/24 14:41 O2 Flow Rate 3 06/05/24 14:41 Oxygen Flow Rate 3 06/05/24 14:41 BMI result Body Mass Index 47.3 Const: General: cooperative Nutritional Appearance: well nourished O rientation/consciousness: patient oriented x3 HEENT: Head: Yes normal to inspection Face and sinus: Yes normal facial exam Neck: Neck: Yes normal visual inspection Chest: Chest palpation & inspection: normal inspection of the chest Resp: Auscultation: rhonchi and wheezes Cardio: Jugular venous distension: no JVD Rate: regular rate Rhythm: r egular rhythm GI: Palpation (GI): Soft to palpation Auscultation: normal bowel sounds Neuro: General: patient oriented x3 Course Course Course Narrative: Still complaining of some shortness of breath chest x-ray reviewed the question mild CHF she has peripheral edema I think we will give him 20 mg of furosemide IV Medications Administered Discontinued Medications Generic Name Dose Route Start Last Admin Trade Name Ramoneq PRN Reason Stop Dose Admin Albuterol Sulfate 2.5 mg/ 0 mg 06/05/24 10:00 06/05/24 10:05 Albuterol/Ipratropium 3 ml INHALE 06/05/24 10:01 1 dose ONCE ONE Administration Furosemide 20 mg 06/05/24 14:21 06/05/24 14:39 Furosemide 20 Mg/2 Ml Vial IVPUSH 06/05/24 14:22 20 mg ONCE ONE Administration Protocol Medical Decision Making Medical Decision Making [facility] Narrative: Patient presented with shortness of breath history of COPD we get chest x-ray administer bronch protocol she already got Solu-Medrol in the field Differential Diagnosis Differential Diagnoses: The differential diagnosis associated with the presentation includes COPD exacerbation/bronchitis/CHF Admission/Observation Consideration of admission/observation: Escalation of care including admission/observation considered Lab Data [facility] Lab Attestation statement: I reviewed the patient's lab results. 06/05/24 11:00 06/05/24 11:00 Labs: Lab Results 06/05/24 06/05/24 06/05/24 Range/Units 11:00 11:06 11:10 WBC 10.8 (4.8-10.8) X10*3/uL RBC 5.10 (4.20-5.50) X10*6/uL Hgb 15.5 (12.0-16.0) g/dl Hct 51.1 H (37.0-47.0) % MCV 100.2 H (80.0-98.0) fL MCH 30.4 (27.0-33.0) pg MCHC 30.3 L (31.0-35.0) g/dl RDW 14.2 (11.0-16.0) % Plt Count 231 (160-400) X10*3/uL MPV 10.4 (9.4-12.3) fL Immature Gran % (Auto) 0.8 H (0.0-0.4) % Neut % (Auto) 85.4 H (45-73) % Lymph % (Auto) 11.1 L (20-40) % [place] % (Auto) 1.7 L (2-11) % Eos % (Auto) 0.3 (0-4) % Baso % (Auto) 0.7 (0-2) % Lymph # (Auto) 1.2 (1.2-4.9) X10*3/uL [place] # (Auto) 0.2 (0.1-1.2) X10*3/uL Eos # (Auto) 0.0 (0.0-0.4) X10*3/uL Baso # (Auto) 0.1 (0.0-0.2) X10*3/uL Abs Immat Gran (auto) 0.09 H (0.00-0.03) X10*3/uL Absolute Neuts (auto) 9.2 H (2.0-8.3) x10*3/uL Absolute Nucleated RBC 0.000 (0.0-0.012) X10*3/uL Nucleated RBC % (auto) 0.0 (0.0-0.2) /100WBC VBG pH 7.39 (7.32-7.43) VBG pCO2 65 mmHg VBG pO2 76 mmHg VBG HCO3 39 H (22-26) mmol/L VBG O2 Saturation 99.0 % VBG Base Excess 11.5 mmol/L Sodium 140 (135-145) mmol/L Potassium 4.2 (3.3-5.1) mmol/L Chloride 96 (96-108) mmol/L Carbon Dioxide 37 H (22-29) mmol/L Anion Gap 11 L (12-20) BUN 9 (9-16) mg/dL Creatinine 0.72 (0.5-1.4) mg/dL Estim Creat Clear Calc 122.3 Estimated GFR > 60 Random Glucose 135 H (60-115) mg/dL Calcium 10.6 H D (8.4-10.2) mg/dL Total Bilirubin 0.3 (0.0-1.0) mg/dL AST 8 (5-31) U/L ALT 15 (0-31) U/L Alkaline Phosphatase 48 (39-117) U/L Troponin I High Sens < 2.7 (<3.5-17.0) ng/L Total Protein 6.7 (6.5-8.0) g/dL Albumin 4.3 (3.5-5.0) g/dL COVID-19 (ENDY) Negative (Negative) COVID-19 Clin Com See Note Independent Interpretation I performed an independent interpretation of an: Plain X-Ray Interpretation: Mild CHF Radiology Impression Discussion of test interpretation with radiology: I have reviewed the radiologist's reading. External Record Review External record reviewed: Inpatient record Chronic Conditions copd Procedures EJ/Peripheral Line Arm L: Time Out Performed: Yes Size (gauge): 20 IV Secured and Dressing Applied: Yes Patient Tolerated Procedure: well and no complications Additional Comments: under US guided cannulated left basilic vein with 20 Accucath 20 erin good flush good blood return Critical Care Time Critical Care Time Critical Care Time: Yes Total Critical Care Time: 60 Attestation: multiple nebs/IV furosemide Discharge Plan Discharge Clinical Impression: COPD with acute exacerbation Patient Disposition: Admitted As Inpatient Print Language: Chinese
[2024-06-05] MEDS: Albuterol Sulfate 2.5 MG, Albuterol/Iprat 2.5/0.5MG 3 ML 3 ML INHALE (10:05)
[2024-06-05 11:13] LABS: VBG Base Excess 11.5 mmol/L; VBG HCO3 39 mmol/L (22-26); VBG pCO2 65 mmHg; VBG pH 7.39 (7.32-7.43); VBG pO2 76 mmHg
[2024-06-05 11:14] LABS: Venous Blood Gas Refer to POC result
[2024-06-05 11:23] LABS: MANUAL DIFF FLAG NO
[2024-06-05 11:25] LABS: Basophils Absolute Auto 0.1 X10*3/uL (0.0-0.2); Basophils Percent Auto 0.7 % (0-2); Eosinophils Percent Auto 0.3 % (0-4); Hematocrit 51.1 % (37.0-47.0); Hemoglobin 15.5 g/dl (12.0-16.0); Imm Gran Abs Auto 0.09 X10*3/uL (0.00-0.03); Imm Gran Pct Auto 0.8 % (0.0-0.4); Lymphocytes Absolute Auto 1.2 X10*3/uL (1.2-4.9); Lymphocytes Percent Auto 11.1 % (20-40); Mean Corpuscular HGB Conc 30.3 g/dl (31.0-35.0); Mean Corpuscular Hemoglobin 30.4 pg (27.0-33.0); Mean Corpuscular Volume 100.2 fL (80.0-98.0); Mean Platelet Volume 10.4 fL (9.4-12.3); Monocytes Absolute Auto 0.2 X10*3/uL (0.1-1.2); Monocytes Percent Auto 1.7 % (2-11); Neutrophils Absolute Auto 9.2 x10*3/uL (2.0-8.3); Neutrophils Percent Auto 85.4 % (45-73); Platelet Count 231 X10*3/uL (160-400); Red Cell Distribution Width 14.2 % (11.0-16.0); White Blood Count 10.8 X10*3/uL (4.8-10.8)
[2024-06-05 11:41] LABS: Alanine Aminotransferase 15 U/L (0-31); Albumin Level 4.3 g/dL (3.5-5.0); Alkaline Phosphatase 48 U/L (39-117); Anion Gap 11 (12-20); Aspartate Amino Transferase 8 U/L (5-31); Bilirubin Total 0.3 mg/dL (0.0-1.0); Blood Urea Nitrogen 9 mg/dL (9-16); Calcium 10.6 mg/dL (8.4-10.2); Carbon Dioxide 37 mmol/L (22-29); Chloride 96 mmol/L (96-108); Creatinine Clr Calc Pharmacy 122.3; Estimated Glomerular Filt Rate > 60; Glucose Random 135 mg/dL (60-115); Potassium 4.2 mmol/L (3.3-5.1); Sodium 140 mmol/L (135-145); Total Protein 6.7 g/dL (6.5-8.0)
[2024-06-05 11:44] LABS: COVID-19 Test Negative (Negative); IDNOW Serial# 152EDE1D
[2024-06-05 11:54] LABS: Troponin-I High Sensitivity < 2.7 ng/L (<3.5-17.0)
[2024-06-05] MEDS: Furosemide 20 MG/2 ML VIAL IVPUSH (14:39)
--- NOTE | 2024-06-05 14:49 | P.HPHOSP_ITS ---
History of Present Illness Date of Service: 06/05/24 Chief Complaint: sob 54F PMH chronic hypoxic and hypercapnic respiratory failure due to COPD on 3 L home O2, chronic diastolic CHF, FABIOLA, morbid obesity, history of pulmonary embolism on Eliquis, bipolar presented with shortness of breath. Patient has had multiple admissions over the past 2 years for COPD and CHF. Most recently discharged 05/28/2024. Now reporting several days of worsening shortness of breath again with wheezing and increasing lower extremity edema. Dry cough. Positive orthopnea. Denies fever or chills, or chest pain. In ED chest x-ray with some pulmonary congestion, ABG with normal pH, chronic hypercapnia. Saturation around 90% on 3 L which is patient's baseline. Review of Systems 2 Review of Systems: Yes all other systems are reviewed and are negative [facility] Medical History FABIOLA (obstructive sleep apnea) Asthma Morbid obesity Intentional overdose Acute bronchospasm Bipolar I disorder with depression Overdose on Tylenol Suicide attempt Asthma COPD (chronic obstructive pulmonary disease) Chronic lung disease Neoplasm of parotid gland Depression 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 Drug abuse Bipolar I disorder Post traumatic stress disorder (PTSD) Tobacco use disorder Borderline personality disorder Intermittent explosive disorder Asthma exacerbation in COPD Herpes Tobacco use Bipolar disorder COPD (chronic obstructive pulmonary disease) Family History Mother COPD (chronic obstructive pulmonary disease) Surgical History History of ankle surgery History of back surgery Hx of cholecystectomy History of appendectomy Social History Household Members: None Household Members Other:: So Housing: Apartment Housing Other:: Sleeps on the couch at [facility] house Do you presently have visiting nurse or other home services: No Unable to assess alcohol history related to: Unknown Alcohol intake: former Comment: Sitter in room Patient Tobacco Use Status: Current someday Tobacco user Tobacco use type: Cigarette Cigarette Packs Per Day: 1 Cigarettes Per Day: 20.0 Years Smoked: 20 Smoked in Last 30 Days: Yes e-Cigarette/Vaping Use: Currently Using Second Hand Smoke Exposure: No Use of substances other than those prescribed or required for medical reasons: No Substance Use Type: Crack/Cocaine Advance Directives: Yes Advance Directives on File: Yes Advance Directives Date on File: 06/17/22 Do you have a plan to hurt others: No Plan service: No Current occupational status: unemployed and disabled Sexual orientation: Straight/Heterosexual Meds Allergies Allergy/AdvReac Type Severity Reaction Status Date / Time aspirin Allergy Mild Anaphylaxis Verified 06/05/24 09:20 ampicillin Allergy Rash Verified 06/05/24 09:20 Penicillins Allergy Anaphylaxis Verified 06/05/24 09:20 latex AdvReac Rash Verified 06/05/24 09:20 Latex, Natural Rubber AdvReac Rash Verified 06/05/24 09:20 seafood AdvReac Anaphylaxis Verified 06/05/24 09:20 Sulfa (Sulfonamide AdvReac Hives Verified 06/05/24 09:20 Antibiotics) Home Medications ?Medication ?Instructions ?Recorded ?Confirmed ?Last Taken ?Type lithium carbonate 450 mg 450 mg PO TID 05/14/23 05/27/24 03/16/24 History tablet,extended release cyanocobalamin (vitamin B-12) 1,000 mcg PO DAILY 06/11/23 05/27/24 03/16/24 History 1,000 mcg tablet (Vitamin B-12) ipratropium 0.5 mg-albuterol 3 mg 3 ml inhalation RQ6H PRN Shortness 06/11/23 05/27/24 10/23/23 History (2.5 mg base)/3 mL nebulization Of Breath Or Wheezing soln cetirizine 10 mg tablet 10 mg PO DAILY PRN Allergy Symptoms 12/19/23 05/27/24 Unknown History melatonin 3 mg tablet 3 mg PO BEDTIME 12/19/23 05/27/24 03/16/24 History cholecalciferol (vitamin D3) 25 25 mcg PO DAILY 02/20/24 05/27/24 03/16/24 History mcg (1,000 unit) tablet (Vitamin D3) gabapentin 300 mg capsule 300 mg PO TID 02/20/24 05/27/24 03/16/24 History ferrous sulfate 325 mg (65 mg 325 mg PO MOWEFR@0900 05/10/24 05/27/24 Unknown History iron) tablet fluticasone propionate 115 2 puff inhalation BID 05/10/24 05/27/24 Unknown History mcg-salmeterol 21 mcg/actuation HFA inhaler (Advair HFA) pantoprazole 20 mg tablet,delayed 20 mg PO DAILY@0630 05/10/24 05/27/24 Unknown History release Physical Exam 2 Vital Signs and Narrative: Vital Signs: Last Vital Signs Temp 98.6 F 06/05/24 14:41 Pulse 84 06/05/24 14:41 Resp 18 06/05/24 14:41 BP 154/81 H 06/05/24 14:41 Pulse Ox 89 L 06/05/24 14:41 O2 Del Method Nasal Cannula 06/05/24 14:41 O2 Flow Rate 3 06/05/24 14:41 Oxygen Flow Rate 3 06/05/24 14:41 BMI result Body Mass Index 47.3 General: AO X 3, sob Resp: decreased air entry and wheezing bilateral, no accessory muscles used CVS: S1,S2,RRR, 2+ bilateral LE edema GI: soft, non tender, non distended Neuro: motor grossly intact, alert Psych: flat affect, appropriate insight Results Labs 06/05/24 11:00 06/05/24 11:00 Labs: Laboratory Results - last 24 hr 06/05/24 06/05/24 06/05/24 11:00 11:06 11:10 MCV 100.2 H MCH 30.4 MCHC 30.3 L RDW 14.2 Plt Count 231 MPV 10.4 Immature Gran % (Auto) 0.8 H Neut % (Auto) 85.4 H Lymph % (Auto) 11.1 L [place] % (Auto) 1.7 L Eos % (Auto) 0.3 Baso % (Auto) 0.7 Lymph # (Auto) 1.2 [place] # (Auto) 0.2 Eos # (Auto) 0.0 Baso # (Auto) 0.1 Abs Immat Gran (auto) 0.09 H Absolute Neuts (auto) 9.2 H Absolute Nucleated RBC 0.000 Nucleated RBC % (auto) 0.0 VBG pH 7.39 VBG pCO2 65 VBG pO2 76 VBG HCO3 39 H VBG O2 Saturation 99.0 VBG Base Excess 11.5 Anion Gap 11 L Estim Creat Clear Calc 122.3 Estimated GFR > 60 Random Glucose 135 H Calcium 10.6 H D Total Bilirubin 0.3 AST 8 ALT 15 Alkaline Phosphatase 48 Troponin I High Sens < 2.7 Total Protein 6.7 Albumin 4.3 COVID-19 (ENDY) Negative COVID-19 Clin Com See Note Imaging Radiologist's Impressions: Impressions Chest X-Ray 06/05/24 10:37 IMPRESSION: 1. Mild prominence of the diffuse parenchymal markings may represent mild vascular congestion. Trace bilateral pleural effusions. 2. Mild bibasilar opacities, left greater than right, likely represent atelectasis, although an infectious/inflammatory process should also be considered in the appropriate clinical setting. This study was presented today, June 05, 2024, for interpretation. Stat results provided at this time as requested by referring provider. Assessment and Plan (1) COPD with acute exacerbation: Status: Acute Plan 54F PMH chronic hypoxic and hypercapnic respiratory failure due to COPD on 3 L home O2, chronic diastolic CHF, FABIOLA, morbid obesity, history of pulmonary embolism on Eliquis, bipolar presented with shortness of breath Shortness of breaths due to acute on chronic diastolic CHF and COPD with acute decompensation in a patient with chronic hypoxic and hypercapnic respiratory failure Given Solu-Medrol 125 IV in ED, continue with prednisone 40 mg daily DuoNebs IV Lasix, monitor BMP History of pulmonary embolism Continue Eliquis FABIOLA CPAP at night Morbid obesity Weight loss recommended Bipolar disorder Continue lithium, olanzapine DVT prophylax - on Eliquis Full code Patient with significant shortness of breath with very poor air movement and significant wheezing, given comorbidities of chronic hypoxia morbid obesity frequent admissions, expected to require at least 2 midnights inpatient Quality Stroke Does the patient have a stroke diagnosis?: No VTE Prior VTE?: Yes VTE Risk Level:: Medical - moderate - high VTE Device Contraindication: Treatment Not Indicated VTE Drug Contraindication: N/A - Med Ordered
[2024-06-05] MEDS: Albuterol/Iprat 2.5/0.5MG 3 ML AMPUL.NEB INHALE ×2 (14:55→20:11)
[2024-06-05 15:03] LABS: B Type Natriuretic Peptide 38 pg/mL (<100)
--- NOTE | 2024-06-05 15:39 | PHA.MEDREC ---
Addendum entered by Jeff Davison RPh 06/05/24 16:37: Edith reviewed. Original Note: Pharmacy Consult ? Medication Reconciliation Pharmacy has completed the medication reconciliation. Spoke to patient to confirm med list. patient states she is no longer taking Nicotine patch 21 mg daily, Nicotine(Polacrilex) 2 mg q2H prn, and Prednisone taper dose. Patient says she is taking Eliquis 5 mg bid and she takes Ferrous sulfate 325 mg daily, however claim states Ferrous sulfate 325 mg every Tuesday, Tuesday, and Fridays. patient fills her medication at [facility] called and confirmed med list.
--- NOTE | 2024-06-05 16:58 | PC.NURSE ---
This RN Spoke with pharmacist in regards to pt gabapentnin and nicotine patch. Medications are currently unverified. Pt states she takes 450mg of gabapentin and no longer uses a nicotone patch.
[2024-06-05] MEDS: Gabapentin 300 MG CAPSULE PO (17:46)
[2024-06-05] MEDS: Nicotine 21 MG PATCH.TD24 TRANSDERMA (17:46)
[2024-06-05] MEDS: Furosemide 40 MG/4 ML VIAL IVPUSH (18:37)
[2024-06-05] MEDS: 0.9 % Sodium Chloride Flush 3 ML SYRINGE IVFLUSH (20:31)
[2024-06-05 21:49] LABS: VBG Base Excess 14.2 mmol/L; VBG HCO3 42 mmol/L (22-26); VBG pCO2 65 mmHg; VBG pH 7.42 (7.32-7.43); VBG pO2 75 mmHg
[2024-06-05 21:50] LABS: Venous Blood Gas Refer to POC result
[2024-06-06] VITALS (11 sets, daily range): BP systolic 116–138; BP diastolic 55–85; PULSE 73–88; RESP 16–20; TEMP 36–36.6; O2SAT 92–95
--- NOTE | 2024-06-06 02:35 | PC.NURSE ---
Seen pt at the start of the shift, very lethargic, difficult to arouse, pt woke up with loud call and vigorous shaking of bed but opens eyes very briefly for a sec and drifted back to sleep right away, O2 sat was 86- 88% at 3.5L/min via [place] Respiratory therapist put her on CPAP, rest of Vitals WNL, Dr. Quiros was made aware. Blood gas was drawn and results was forwarded to Dr. Quiros, Respiratory titrated O2 settings as to maintained 88-91%, po meds held as per Dr. Quiros. pt placed on cont pulse ox.
[2024-06-06] MEDS: Omeprazole 20 MG CAPSULE.DR PO (05:22)
[2024-06-06 06:43] LABS: Alanine Aminotransferase 14 U/L (0-31); Albumin Level 4.2 g/dL (3.5-5.0); Alkaline Phosphatase 53 U/L (39-117); Anion Gap 15 (12-20); Aspartate Amino Transferase 10 U/L (5-31); Bilirubin Direct 0.1 mg/dL (0.0-0.5); Bilirubin Total 0.4 mg/dL (0.0-1.0); Blood Urea Nitrogen 12 mg/dL (9-16); Carbon Dioxide 41 mmol/L (22-29); Chloride 93 mmol/L (96-108); Creatinine Clr Calc Pharmacy 127.7; Estimated Glomerular Filt Rate > 60; Glucose Fasting 90 mg/dL (60-99); Hematocrit 53.8 % (37.0-47.0); Hemoglobin 16.2 g/dl (12.0-16.0); Magnesium 2.1 mg/dL (1.6-2.6); Mean Corpuscular HGB Conc 30.1 g/dl (31.0-35.0); Mean Corpuscular Hemoglobin 30.3 pg (27.0-33.0); Mean Corpuscular Volume 100.6 fL (80.0-98.0); Mean Platelet Volume 10.2 fL (9.4-12.3); Platelet Count 264 X10*3/uL (160-400); Potassium 4.9 mmol/L (3.3-5.1); Red Blood Count 5.35 X10*6/uL (4.20-5.50); Red Cell Distribution Width 14.1 % (11.0-16.0); Sodium 144 mmol/L (135-145); Total Protein 6.7 g/dL (6.5-8.0); White Blood Count 10.3 X10*3/uL (4.8-10.8)
[2024-06-06] MEDS: Albuterol/Iprat 2.5/0.5MG 3 ML AMPUL.NEB INHALE ×4 (07:30→19:22)
--- NOTE | 2024-06-06 08:23 | ECG_ITS ---
Test Reason : chest pain Blood Pressure : / mmHG Vent. Rate : 081 BPM Atrial Rate : 081 BPM P-R Int : 132 ms QRS Dur : 088 ms QT Int : 378 ms P-R-T Axes : 031 028 024 degrees QTc Int : 439 ms Normal sinus rhythm Normal ECG When compared with ECG of 05-JUN-2024 09:47, No significant change was found Referred By: Lisa Herman Electronically Signed By:VAIBHAV KILLIAN MD
[2024-06-06] MEDS: Furosemide 40 MG/4 ML VIAL IVPUSH (09:16)
[2024-06-06] MEDS: 0.9 % Sodium Chloride Flush 3 ML SYRINGE IVFLUSH ×3 (09:16→22:32)
[2024-06-06] MEDS: predniSONE 20 MG TABLET 40 MG PO (09:17)
[2024-06-06] MEDS: Apixaban 5 MG TABLET PO ×2 (09:17→22:28)
[2024-06-06] MEDS: Cholecalciferol (Vitamin D3) 25 MCG TABLET PO (09:17)
[2024-06-06] MEDS: Nicotine 21 MG PATCH.TD24 TRANSDERMA (09:18)
[2024-06-06] MEDS: Ferrous Sulfate 324 MG TABLET.DR PO (09:18)
[2024-06-06] MEDS: Cyanocobalamin (Vitamin B-12) 1,000 MCG TABLET 1000 MCG PO (09:18)
[2024-06-06] MEDS: Gabapentin 300 MG CAPSULE PO ×3 (09:18→22:28)
[2024-06-06] MEDS: acetaZOLAMIDE 250 MG TABLET PO ×2 (09:18→22:31)
[2024-06-06] MEDS: Lithium Carbonate 300 MG TABLET 450 MG PO ×3 (10:29→22:27)
--- NOTE | 2024-06-06 11:19 | MHC.CM.PN ---
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
[2024-06-06] MEDS: Ibuprofen 400 MG TABLET PO (11:50)
[2024-06-06] MEDS: guaiFENesin LA 600 MG TAB.ER.12H PO ×2 (11:51→22:29)
--- NOTE | 2024-06-06 14:42 | HO.PM.IMPN ---
Subjective Subjective Date of Service: 06/06/24 Interval History: seen and evaluated this morning Feels little better Dropped O2 overnight to hypoxic range no other events Review of Systems Review of Systems: Yes all other systems are reviewed and are negative Physical Exam Vital Signs: Vital Signs: Last Vital Signs Temp 96.9 F 06/06/24 07:24 Pulse 80 06/06/24 11:16 Resp 20 06/06/24 11:16 BP 137/79 06/06/24 09:16 Pulse Ox 93 06/06/24 08:18 O2 Del Method Nasal Cannula 06/06/24 08:18 O2 Flow Rate 3 06/06/24 08:18 Oxygen Flow Rate 3 06/05/24 14:41 BMI result Body Mass Index 47.3 Const: Other: Constitutional : Awake, interactive, not in distress Neck : Normal inspection, Supple Cardiovascular : RRR, no JVP, trace lower extremity edema Respiratory : decreased bilateral air entry, basal crackles, expiratory scattered wheezes Gastrointestinal: soft, lax, Normal bowel sounds, Non tender Skin : Warm, Dry Neurological : Alert & oriented x3, No focal deficit Objective Data Active Medications Acetaminophen (Acetaminophen 325 Mg Tablet) 650 mg PO Q6H PRN PRN Reason: Pain, Mild (Pain Scale 1-3), fever or headache Acetazolamide (Acetazolamide 250 Mg Tablet) 250 mg PO BID ON LICENSE OF [facility] Last Admin: 06/06/24 09:18 Dose: 250 mg Documented By: MERVIN Albuterol/Ipratropium (Albuterol/Iprat 2.5/0.5mg 3 Ml Ampul.Neb) 3 ml INHALE RQ4H WHILE AWAKE PRN PRN Reason: sob Albuterol/Ipratropium (Albuterol/Iprat 2.5/0.5mg 3 Ml Ampul.Neb) 3 ml INHALE RQ4H WHILE AWAKE ON LICENSE OF [facility] Last Admin: 06/06/24 11:15 Dose: 3 ml Documented By: FABIANO Apixaban (Apixaban 5 Mg Tablet) 5 mg PO BID ON LICENSE OF [facility] Last Admin: 06/06/24 09:17 Dose: 5 mg Documented By: MERVIN Benzonatate (Benzonatate 100 Mg Capsule) 100 mg PO TID ON LICENSE OF [facility] Calcium Carbonate (Calcium Carbonate 750 Mg Tab.Chew) 750 mg PO Q4H PRN PRN Reason: Heartburn Clonidine HCl (Clonidine Hcl 0.2 Mg Tablet) 0.2 mg PO BEDTIME ON LICENSE OF [facility]; Protocol Last Admin: 06/05/24 22:12 Dose: Not Given Documented By: PAVAN Non-Admin Reason: Physician Approved Cyanocobalamin (Cyanocobalamin (Vitamin B-12) 1,000 Mcg Tablet) 1,000 mcg PO DAILY ON LICENSE OF [facility] Last Admin: 06/06/24 09:18 Dose: 1,000 mcg Documented By: MERVIN Ferrous Sulfate (Ferrous Sulfate 324 Mg Tablet.Dr) 324 mg PO DAILY ON LICENSE OF [facility] Last Admin: 06/06/24 09:18 Dose: 324 mg Documented By: MERVIN Fluticasone/Vilanterol (Fluticasone/Vilanterol 100/25 Blst.W.Dev) 1 puff INHALE RDAILY ON LICENSE OF [facility] Last Admin: 06/06/24 09:02 Dose: Not Given Documented By: FABIANO Non-Admin Reason: Med Not Available Furosemide (Furosemide 40 Mg/4 Ml Vial) 40 mg IVPUSH DAILY ON LICENSE OF [facility]; Protocol Gabapentin (Gabapentin 300 Mg Capsule) 300 mg PO TID ON LICENSE OF [facility] Last Admin: 06/06/24 09:18 Dose: 300 mg Documented By: MERVIN Guaifenesin (Guaifenesin La 600 Mg Tab.Er.12h) 600 mg PO BID ON LICENSE OF [facility] Last Admin: 06/06/24 11:51 Dose: 600 mg Documented By: MERVIN Ibuprofen (Ibuprofen 400 Mg Tablet) 400 mg PO BIDWM ON LICENSE OF [facility] Last Admin: 06/06/24 11:50 Dose: 400 mg Documented By: MERVIN Cobalt Carbonate (Cobalt Carbonate 300 Mg Tablet) 450 mg PO TID ON LICENSE OF [facility] Last Admin: 06/06/24 10:29 Dose: 450 mg Documented By: MERVIN Magnesium Hydroxide (Milk Of Magnesia 30 Ml Oral.Susp) 30 ml PO DAILY PRN PRN Reason: Constipation Melatonin (Melatonin 3 Mg Tablet) 6 mg PO BEDTIME PRN PRN Reason: Insomnia Nicotine (Nicotine 21 Mg Patch.Td24) 21 mg TRANSDERMA DAILY ON LICENSE OF [facility] Last Admin: 06/06/24 09:18 Dose: 21 mg Documented By: MERVIN Olanzapine (Olanzapine 10 Mg Tablet) 10 mg PO BEDTIME ON LICENSE OF [facility] Last Admin: 06/05/24 22:12 Dose: Not Given Documented By: PAVAN Non-Admin Reason: Physician Approved Omeprazole (Omeprazole 20 Mg Capsule.) 20 mg PO DAILY@0630 ON LICENSE OF [facility] Last Admin: 06/06/24 05:22 Dose: 20 mg Documented By: PAVAN Prednisone (Prednisone 20 Mg Tablet) 40 mg PO DAILY ON LICENSE OF [facility] Last Admin: 06/06/24 09:17 Dose: 40 mg Documented By: MERVIN Ropinirole HCl (Ropinirole Hcl 1 Mg Tablet) 1 mg PO BEDTIME ON LICENSE OF [facility] Last Admin: 06/05/24 22:12 Dose: Not Given Documented By: PAVAN Non-Admin Reason: Physician Approved Sodium Chloride (0.9 % Sodium Chloride Flush 3 Ml Syringe) 3 ml IVFLUSH QSHIFT ON LICENSE OF [facility] Last Admin: 06/06/24 09:16 Dose: 3 ml Documented By: MERVIN Vitamin D (Cholecalciferol (Vitamin D3) 25 Mcg Tablet) 25 mcg PO DAILY ON LICENSE OF [facility] Last Admin: 06/06/24 09:17 Dose: 25 mcg Documented By: MERVIN Labs 06/06/24 05:10 06/06/24 05:10 Labs: Laboratory Results - last 24 hr 06/05/24 06/05/24 06/06/24 11:00 21:44 05:10 MCV 100.6 H MCH 30.3 MCHC 30.1 L RDW 14.1 Plt Count 264 MPV 10.2 Absolute Nucleated RBC 0.000 Nucleated RBC % (auto) 0.0 VBG pH 7.42 VBG pCO2 65 VBG pO2 75 VBG HCO3 42 H VBG O2 Saturation 97.0 VBG Base Excess 14.2 Anion Gap 15 Estim Creat Clear Calc 127.7 Estimated GFR > 60 Fasting Glucose 90 Calcium 11.0 H Magnesium 2.1 Total Bilirubin 0.4 Direct Bilirubin 0.1 AST 10 ALT 14 Alkaline Phosphatase 53 B-Natriuretic Peptide 38 Total Protein 6.7 Albumin 4.2 Assessment and Plan (1) COPD with acute exacerbation: Status: Acute (2) Accidental overdose of gabapentin: Status: Acute (3) Acute on chronic respiratory failure with hypoxia and hypercapnia: Status: Acute Plan 54F PMH chronic hypoxic and hypercapnic respiratory failure due to COPD on 3 L home O2, chronic diastolic CHF, FABIOLA, morbid obesity, history of pulmonary embolism on Eliquis, bipolar presented with shortness of breath Acute on chronic diastolic CHF and COPD with acute decompensation complicated with acute on chronic hypoxic and hypercapnic respiratory failure improving continue with prednisone 40 mg daily Daily ATC and PRN IV Lasix monitor BMP to do sleeping study overnight for titration History of pulmonary embolism Continue Eliquis FABIOLA CPAP at night Morbid obesity Weight loss recommended Bipolar disorder Continue lithium, olanzapine DVT prophylax - on Eliquis Full code Patient with significant shortness of breath with very poor air movement and significant wheezing, given comorbidities of chronic hypoxia morbid obesity frequent admissions, expected to require overnight stay inpatient Quality Stroke Does the patient have a stroke diagnosis?: No VTE Prior VTE?: Yes VTE Risk Level:: Medical - moderate - high VTE Device Contraindication: Treatment Not Indicated VTE Drug Contraindication: N/A - Med Ordered
[2024-06-06] MEDS: Benzonatate 100 MG CAPSULE PO ×2 (15:44→22:27)
--- NOTE | 2024-06-06 17:06 | HO.WOUND ---
Wound Consult: Initial 54yr old? [place] [facility] [place]05[place]24 14:48 - See progress notes and H&P for detailed history.? Wound consult placed for Right posterior thigh wound.? Patient agreeable to assessment and photo documentation.? Patient reports she noted the wound at her home but does not recall an injury - she reports she did not seek treatment for the area. She reports she often has cysts that rupture and cause her pain and drainage and maybe this was one of those. She reports they typically drain and heal and do not turn black brown. She reports she is currently experiencing one in her left groin. The left groin was assessed for a small fluid filled area draining sero-purulent fluid with excessive pain in touched. Driect care notified and will have provider assess to rule out abscess and other etiologies. Left Groin Etiology: Unknown Etiology -??Present on Admission Measurements: see charting for details Wound Bed: central opening Drainage / Odor: no odor noted - sero-purulent drainage Edges: ?irregular Anjelica wound: ? red blanchable erythema - MASD No Induration, Fluctuance or Warmth noted Pain: extreme pain when palpated Goals of Treatment: ? Dressing for drainage absorption and refer to provider for assessment Right Posterior Thigh Etiology: Unknown Etiology not consistent with pressure or moisture -??Present on Admission Measurements: see charting for details Wound Bed: dry adherent black brown eschar vs scab Drainage / Odor: None Edges: well defined Anjelica wound: ? red blanchable erythema - Mild Induration noted No Fluctuance or Warmth noted Pain: extreme pain when palpated Goals of Treatment: ? TRiad to allow for enhanced autolytic debridement and foam dressing to protect Recommendations: 1. Turn and Reposition every 2 hours and as needed for patient comfort.? Use pillows or wedges to support off loading positions. 2. Off Load all bony prominences with use of pillows and heel boots if needed.? Apply Preventative foams where needed. ? 3. Monitor for incontinence and moisture control, use barrier creams when needed for prevention and treatment. 4. Provide adequate and supplemental nutrition.? 5. Order low air loss mattress. 6. When applicable maintain blood glucose levels per Providers order. 7. Left Groin - Cleanse with Ph balanced wipes, pat dry. Cover with foam dressing, change every 3 days and PRN. Provider to assess for Etiology. 8. Right Posterior Thigh - Cleanse with Ph balanced wipe,pat dry. Cover wound bed with thick layer of Triad, cover with foam dressing. Change every 3 days. Re-consult wound care Nurse for wound deterioration or wound changes.
--- NOTE | 2024-06-06 22:03 | PC.RT ---
pt placed on overnight sleep study @9;45pm pt Sats remained below 85% for 5 mins pplaced pt on 3lnc sats now 86-87% RN aware
[2024-06-06] MEDS: rOPINIRole HCL 1 MG TABLET PO (22:29)
[2024-06-06] MEDS: OLANZapine 10 MG TABLET PO (22:29)
[2024-06-06] MEDS: cloNIDine HCL 0.2 MG TABLET PO (22:30)
[2024-06-07 02:52] VITALS: BP 126/70; PULSE 68; RESP 20; TEMP 36.1; O2SAT 95
--- NOTE | 2024-06-07 05:14 | PC.RT ---
overnight sleep study is off pt on 2lnc
[2024-06-07 05:42] LABS: Hematocrit 51.1 % (37.0-47.0); Hemoglobin 15.4 g/dl (12.0-16.0); Mean Corpuscular HGB Conc 30.1 g/dl (31.0-35.0); Mean Corpuscular Hemoglobin 30.4 pg (27.0-33.0); Mean Corpuscular Volume 100.8 fL (80.0-98.0); Mean Platelet Volume 10.2 fL (9.4-12.3); Platelet Count 202 X10*3/uL (160-400); Red Blood Count 5.07 X10*6/uL (4.20-5.50); Red Cell Distribution Width 14.3 % (11.0-16.0); White Blood Count 11.3 X10*3/uL (4.8-10.8)
[2024-06-07] MEDS: Omeprazole 20 MG CAPSULE.DR PO (05:52)
[2024-06-07 05:58] LABS: Potassium 3.7 mmol/L (3.3-5.1)
[2024-06-07 05:59] LABS: Anion Gap 13 (12-20); Blood Urea Nitrogen 18 mg/dL (9-16); Calcium 10.2 mg/dL (8.4-10.2); Carbon Dioxide 35 mmol/L (22-29); Chloride 96 mmol/L (96-108); Creatinine Clr Calc Pharmacy 119.1; Estimated Glomerular Filt Rate > 60; Glucose Random 94 mg/dL (60-115); Sodium 140 mmol/L (135-145)
[2024-06-07 06:02] LABS: B Type Natriuretic Peptide 13 pg/mL (<100)
[2024-06-07] MEDS: Albuterol/Iprat 2.5/0.5MG 3 ML AMPUL.NEB INHALE ×2 (07:39→08:17)
[2024-06-07 07:40] VITALS: PULSE 68; RESP 20
[2024-06-07 07:55] VITALS: BP 124/73; PULSE 79; RESP 18; TEMP 36; O2SAT 92
[2024-06-07] MEDS: acetaZOLAMIDE 250 MG TABLET PO (09:19)
[2024-06-07] MEDS: Furosemide 40 MG/4 ML VIAL IVPUSH (09:19)
[2024-06-07] MEDS: Nicotine 21 MG PATCH.TD24 TRANSDERMA (09:19)
[2024-06-07] MEDS: Ferrous Sulfate 324 MG TABLET.DR PO (09:20)
[2024-06-07] MEDS: Cholecalciferol (Vitamin D3) 25 MCG TABLET PO (09:20)
[2024-06-07] MEDS: guaiFENesin LA 600 MG TAB.ER.12H PO (09:20)
[2024-06-07] MEDS: Benzonatate 100 MG CAPSULE PO (09:21)
[2024-06-07] MEDS: Lithium Carbonate 300 MG TABLET 450 MG PO (09:21)
[2024-06-07] MEDS: Cyanocobalamin (Vitamin B-12) 1,000 MCG TABLET 1000 MCG PO (09:21)
[2024-06-07] MEDS: Ibuprofen 400 MG TABLET PO (09:21)
[2024-06-07] MEDS: Apixaban 5 MG TABLET PO (09:22)
[2024-06-07] MEDS: predniSONE 20 MG TABLET 40 MG PO (09:22)
[2024-06-07] MEDS: Gabapentin 300 MG CAPSULE PO (09:22)
[2024-06-07] MEDS: 0.9 % Sodium Chloride Flush 3 ML SYRINGE IVFLUSH (09:25)
--- NOTE | 2024-06-07 11:22 | P.DS_ITS ---
DS: Providers Provider Date of Service: 06/07/24 Date of admission: 06/05/24 14:48 Primary care physician: Mike Malone MD Consults: 06/06/24 17:17 Consult to Wound Care Routine Reason for consultation: Right thigh and Left groin DS: Diagnosis Discharge Diagnosis (1) COPD with acute exacerbation: Status: Acute (2) Accidental overdose of gabapentin: Status: Acute (3) Acute on chronic respiratory failure with hypoxia and hypercapnia: Status: Acute (4) FABIOLA (obstructive sleep apnea): Status: Acute DS: Summary Hospital Course Hospital Course: Admission note HPI 54F PMH chronic hypoxic and hypercapnic respiratory failure due to COPD on 3 L home O2, chronic diastolic CHF, FABIOLA, morbid obesity, history of pulmonary embolism on Eliquis, bipolar presented with shortness of breath. Patient has had multiple admissions over the past 2 years for COPD and CHF. Most recently discharged 05/28/2024. Now reporting several days of worsening shortness of breath again with wheezing and increasing lower extremity edema. Dry cough. Positive orthopnea. Denies fever or chills, or chest pain. In ED chest x-ray with some pulmonary congestion, ABG with normal pH, chronic hypercapnia. Saturation around 90% on 3 L which is patient's baseline. Hospital course The patient was admitted for treatment of acute on chronic diastolic CHF and COPD with acute decompensation complicated with acute on chronic hypoxic and hypercapnic respiratory failure treated with IV steroids and lasix along with DuoNebs ATC and PRN with good response over the course of hospital stay as she was switched to PO Prednisone and weaned down O2 to 2L at rest and 3L with ambulation maintaining her O2 saty >90% with no reported dyspnea. She will be started on small dose of Lasix upon discharge along with Prednisone, Mucinex and Incentive spirometry given atelactasis seen in lower lobes bilaterally in CXR. For History of pulmonary embolism, Continue Eliquis For FABIOLA. Continued CPAP at night and had a sleep study for titration. To be followed by Pulmonology as outpatient. For Morbid obesity Weight loss recommended Discharge plan Take Prednisone for 3 more days Use your home nebulizer every 6 hours for the next 3 days then as needed continue home inhalers Lasix every otherday for fluid overload Use Incentive spirometry To follow with Pulmonology for sleep study result and adjustments of CPAP. Time Attestation Discharge Coordination Time (in mins): 35 Quality: Safe Use of Opioids Does Pt have an Active Cancer Diagnosis on the Problem List?: No Quality: Stroke Does the patient have a stroke diagnosis?: No Physical Exam Vital Signs: Vital Signs: Last Vital Signs Temp 96.8 F 06/07/24 07:55 Pulse 79 06/07/24 07:55 Resp 18 06/07/24 07:55 BP 124/73 06/07/24 07:55 Pulse Ox 92 06/07/24 07:55 O2 Del Method Room Air 06/07/24 07:55 O2 Flow Rate 3 06/07/24 02:52 Oxygen Flow Rate 3 06/05/24 14:41 BMI result Body Mass Index 47.3 Const: Other: Constitutional : Awake, interactive, not in distress Neck : Normal inspection, Supple Cardiovascular : RRR, no JVP, trace lower extremity edema Respiratory : good bilateral air entry, no crackles, No wheezes Gastrointestinal: soft, lax, Normal bowel sounds, Non tender Skin : Warm, Dry Neurological : Alert & oriented x3, No focal deficit DS: Data Data Completed and Pending Completed studies during hospitalization [Text1]: Procedures Assistance with Respiratory Ventilation, Less than 24 Consecutive Hours, Continuous Positive Airway Pressure (05/26/24) Drainage of Left Parotid Gland, Percutaneous Approach, Diagnostic (11/09/21) Drainage of Neck, Percutaneous Approach, Diagnostic (03/17/22) Excision of Left Parotid Gland, Percutaneous Approach, Diagnostic (03/17/22) Introduction of Remdesivir Anti-infective into Peripheral Vein, Percutaneous Approach, [employer] (06/01/22) Labs on day of discharge: Laboratory Results - last 24 hr 06/07/24 05:17 WBC 11.3 H RBC 5.07 Hgb 15.4 Hct 51.1 H MCV 100.8 H MCH 30.4 MCHC 30.1 L RDW 14.3 Plt Count 202 MPV 10.2 Absolute Nucleated RBC 0.000 Nucleated RBC % (auto) 0.0 Sodium 140 Potassium 3.7 D Chloride 96 Carbon Dioxide 35 H Anion Gap 13 BUN 18 H Creatinine 0.74 Estim Creat Clear Calc 119.1 Estimated GFR > 60 Random Glucose 94 Calcium 10.2 D B-Natriuretic Peptide 13 Imaging Chest x-ray: Radiologist's impression: ITS Impressions Chest X-Ray 06/05/24 10:37 IMPRESSION: 1. Mild prominence of the diffuse parenchymal markings may represent mild vascular congestion. Trace bilateral pleural effusions. 2. Mild bibasilar opacities, left greater than right, likely represent atelectasis, although an infectious/inflammatory process should also be considered in the appropriate clinical setting. This study was presented today, June 05, 2024, for interpretation. Stat results provided at this time as requested by referring provider. Discharge Plan Discharge Anticipated Discharge Date/Time: 06/07/24 11:17 Patient Disposition: Home, Self-Care Discharge Diagnosis: COPD exacerbation Referrals: Mike Malone MD [Primary Care Provider] - 1 Week Discharge Medications: New prednisone 20 mg Tablet 40 mg PO DAILY Qty: 6 0RF nicotine 21 mg/24 hr Patch 24 Hour 21 mg transdermal DAILY Qty: 30 0RF guaifenesin [Mucinex] 600 mg Tablet Extended Release 12hr 600 mg PO BID Qty: 10 0RF furosemide 20 mg tablet 20 mg PO Q OTHER DAY Qty: 30 0RF Continued ropinirole 1 mg Tablet 1 mg PO BEDTIME Qty: 30 0RF olanzapine 10 mg Tablet 10 mg PO BEDTIME Qty: 30 0RF clonidine HCl 0.2 mg Tablet 0.2 mg PO BEDTIME Qty: 30 0RF Protocol: Hold for SBP< HOLD for SBP < : 90 cetirizine 10 mg Tablet 10 mg PO DAILY PRN (Reason: Allergy Symptoms) melatonin 3 mg Tablet 3 mg PO BEDTIME cholecalciferol (vitamin D3) [Vitamin D3] 25 mcg (1,000 unit) tablet 25 mcg PO DAILY ferrous sulfate 325 mg (65 mg iron) Tablet 325 mg PO DAILY fluticasone propion-salmeterol [Advair HFA] 115-21 mcg/actuation Hfa Aerosol Inhaler 2 puff INHALATION BID pantoprazole 20 mg Tablet,Delayed Release (Dr/Ec) 40 mg PO DAILY@0630 Eliquis 5 mg Tablet 5 mg PO BID Qty: 60 0RF lithium carbonate 450 mg tablet extended release 450 mg PO TID cyanocobalamin (vitamin B-12) [Vitamin B-12] 1,000 mcg tablet 1,000 mcg PO DAILY ipratropium-albuterol 0.5 mg-3 mg(2.5 mg base)/3 mL solution for nebulization 3 ml inhalation RQ6H PRN (Reason: Shortness Of Breath Or Wheezing) albuterol sulfate 2.5 mg /3 mL (0.083 %) Solution For Nebulization 2.5 mg INHALATION Q4-6H PRN (Reason: Shortness Of Breath Or Wheezing) gabapentin 400 mg Capsule 400 mg PO TID Spiriva Respimat 1.25 mcg/actuation Mist 2 puff INHALATION DAILY guaifenesin 100 mg/5 mL Liquid 200 mg PO Q4-6H PRN (Reason: Cough) Discharge Orders: Discharge Order (Routine); Ordered 06/07/24 Ordered By: Lisa Herman Diet: Low salt diet Activity on Discharge: As tolerated Stand Alone Forms: Patient Portal Discharge page Print Language: Icelandic Care Plan Goals: Take Prednisone for 3 more days Use your home nebulizer every 6 hours for the next 3 days then as needed continue home inhalers Lasix every otherday for fluid overload Use Incentive spirometry To follow with Pulmonology for sleep study result and adjustments of CPAP. Health Concerns: Read below Plan of Treatment: Read below Assessment: Read below
--- NOTE | 2024-06-07 11:41 | MHC.CM.PN ---
DP: PT HAS BEEN MEDICALLY CLEARED FOR DC HOME, NO SERVICES. PT WILL TRANSPORT ON [facility] AT 1:30 PM
== END 2024-06-07 12:27 | disposition home or self-care (01) | DRG 140 ==
LOC: HO.ED 14:37 → HO.EDOVER 14:50 → HO.S3 16:49
PROVIDERS: Internal Medicine; Admitting Provider Internal Medicine; Emergency Provider Emergency Medicine; PCP Internal Medicine; Responsible Provider Student in an Organized Health Care Education/Training Program; Visit Provider Student in an Organized Health Care Education/Training Program
DX: J44.1 Chronic obstructive pulmonary disease with (acute) exacerbation (principal); J96.21 Acute and chronic respiratory failure with hypoxia; I50.33 Acute on chronic diastolic (congestive) heart failure; Z99.81 Dependence on supplemental oxygen; E66.01 Morbid (severe) obesity due to excess calories; Z68.42 Body mass index [BMI] 45.0-49.9, adult; F31.9 Bipolar disorder, unspecified; J98.11 Atelectasis; J96.22 Acute and chronic respiratory failure with hypercapnia; G47.33 Obstructive sleep apnea (adult) (pediatric); F17.210 Nicotine dependence, cigarettes, uncomplicated; Z20.822 Contact with and (suspected) exposure to COVID-19; Z86.711 Personal history of pulmonary embolism; Z71.6 Tobacco abuse counseling; Z79.01 Long term (current) use of anticoagulants; Z79.899 Other long term (current) drug therapy
CPT/HCPCS: 36415; 71045; 80048; 80053; 80076; 82803; 83735; 83880; 84484; 85025; 85027; 87635; 93005; 94640; 94660; 99285; J1940

== ENCOUNTER → 2024-06-05 09:44 | Outpatient (BNV) | payer MEDICAID, SELFPAY | PROVIDERS: Admitting Provider Internal Medicine; Emergency Provider Emergency Medicine; PCP Internal Medicine; Visit Provider Internal Medicine Cardiovascular Disease | DX: R07.9 Chest pain, unspecified (principal) | CPT/HCPCS: 93010 ==

== ENCOUNTER 2024-06-05 14:48 | Outpatient (BNV) | payer MEDICAID, SELFPAY | END 2024-06-06 08:23 | PROVIDERS: Admitting Provider Internal Medicine; Emergency Provider Emergency Medicine; PCP Internal Medicine; Responsible Provider Student in an Organized Health Care Education/Training Program; Visit Provider Internal Medicine Cardiovascular Disease | DX: R07.9 Chest pain, unspecified (principal) | CPT/HCPCS: 93010 ==

== ENCOUNTER → 2024-06-05 14:48 | Outpatient (BNV) | payer MEDICAID, SELFPAY | PROVIDERS: Admitting Provider Internal Medicine; Emergency Provider Emergency Medicine; PCP Internal Medicine; Visit Provider Internal Medicine | DX: J44.1 Chronic obstructive pulmonary disease with (acute) exacerbation (principal); T42.6X1A Poisoning by other antiepileptic and sedative-hypnotic drugs, accidental (unintentional), initial encounter; J96.21 Acute and chronic respiratory failure with hypoxia; J96.22 Acute and chronic respiratory failure with hypercapnia; G47.33 Obstructive sleep apnea (adult) (pediatric) | CPT/HCPCS: 99223; 99232; 99239 ==

== ENCOUNTER 2024-06-12 15:54 | Emergency (ER) | payer MEDICAID, SELFPAY ==
[2024-06-12 16:17] VITALS: BP 116/65; PULSE 70; RESP 15; TEMP 36.5; O2SAT 99; BMI 41.2
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
[2024-06-12 18:52] LABS: MANUAL DIFF FLAG NO
[2024-06-12 18:57] LABS: Basophils Percent Auto 0.4 % (0-2); Eosinophils Percent Auto 0.2 % (0-4); Hematocrit 49.7 % (37.0-47.0); Hemoglobin 15.1 g/dl (12.0-16.0); Imm Gran Abs Auto 0.06 X10*3/uL (0.00-0.03); Imm Gran Pct Auto 0.6 % (0.0-0.4); Lymphocytes Absolute Auto 1.7 X10*3/uL (1.2-4.9); Lymphocytes Percent Auto 17.1 % (20-40); Mean Corpuscular HGB Conc 30.4 g/dl (31.0-35.0); Mean Corpuscular Hemoglobin 30.1 pg (27.0-33.0); Mean Platelet Volume 9.5 fL (9.4-12.3); Monocytes Absolute Auto 0.4 X10*3/uL (0.1-1.2); Monocytes Percent Auto 4.1 % (2-11); Neutrophils Absolute Auto 7.6 x10*3/uL (2.0-8.3); Neutrophils Percent Auto 77.6 % (45-73); Platelet Count 225 X10*3/uL (160-400); Red Blood Count 5.02 X10*6/uL (4.20-5.50); Red Cell Distribution Width 14.6 % (11.0-16.0); White Blood Count 9.8 X10*3/uL (4.8-10.8)
[2024-06-12 19:08] LABS: Anion Gap 11 (12-20); Blood Urea Nitrogen 8 mg/dL (9-16); Carbon Dioxide 32 mmol/L (22-29); Chloride 103 mmol/L (96-108); Estimated Glomerular Filt Rate > 60; Ethanol < 10 mg/dL; Glucose Random 124 mg/dL (60-115); Potassium 4.6 mmol/L (3.3-5.1); Sodium 141 mmol/L (135-145)
--- NOTE | 2024-06-12 19:16 | PC.NURSE ---
Assumed care of pt. pt sitting upright on stretcher, no acute distress. pt continuing to endorse Si d/t life stressors - anniversary of family deaths. Dinner tray provided to pt. Continuing plan of care for CARE evaluation.
== END 2024-06-12 21:03 | disposition home or self-care (01) ==
PROVIDERS: Emergency Provider Emergency Medicine; PCP Internal Medicine
DX: F32.A Depression, unspecified (principal); R45.851 Suicidal ideations; L97.119 Non-pressure chronic ulcer of right thigh with unspecified severity; F41.9 Anxiety disorder, unspecified; J45.909 Unspecified asthma, uncomplicated; F19.10 Other psychoactive substance abuse, uncomplicated; F43.10 Post-traumatic stress disorder, unspecified; F17.210 Nicotine dependence, cigarettes, uncomplicated
CPT/HCPCS: 36415; 80048; 80307; 85025; 99284; S9485

== ENCOUNTER 2024-06-16 15:53 | Emergency (ER) | payer MEDICAID, SELFPAY ==
[2024-06-16 16:01] VITALS: BP 148/100; PULSE 108; O2SAT 93
--- NOTE | 2024-06-16 16:05 | ED_ITS ---
HPI - General Adult General Chief complaint: Psychiatric Symptoms Stated complaint: SI Time Seen by Provider: 06/16/24 16:04 History of Present Illness ED Provider: Papo ROBLERO narrative: The patient is a 54-year-old female with multiple medical problems who also has multiple mental health issues as well. She lives at home in her own apartment. She is on 3 L oxygen chronically. She lives in [facility] assisted housing. The patient says that she called an ambulance today because she was feeling depressed. She says that this time of year is the time of multiple anniversary of friends and family. This makes her feel depressed and today she lined out all her medications and thought about overdosing on all of the but then thought better of it and called 911 instead. The patient chronically feels short of breath. She has had no fever, sweats, chills. No significant chest pain. No abdominal pain. No nausea or vomiting. Related Data Home Medications ?Medication ?Instructions ?Recorded ?Confirmed lithium carbonate 450 mg 450 mg PO TID 05/14/23 06/05/24 tablet,extended release cyanocobalamin (vitamin B-12) 1,000 mcg PO DAILY 06/11/23 06/05/24 1,000 mcg tablet (Vitamin B-12) ipratropium 0.5 mg-albuterol 3 mg 3 ml inhalation RQ6H PRN Shortness 06/11/23 06/05/24 (2.5 mg base)/3 mL nebulization Of Breath Or Wheezing soln cetirizine 10 mg tablet 10 mg PO DAILY PRN Allergy Symptoms 12/19/23 06/05/24 melatonin 3 mg tablet 3 mg PO BEDTIME 12/19/23 06/05/24 cholecalciferol (vitamin D3) 25 25 mcg PO DAILY 02/20/24 06/05/24 mcg (1,000 unit) tablet (Vitamin D3) ferrous sulfate 325 mg (65 mg 325 mg PO DAILY 05/10/24 06/05/24 iron) tablet fluticasone propionate 115 2 puff inhalation BID 05/10/24 06/05/24 mcg-salmeterol 21 mcg/actuation HFA inhaler (Advair HFA) pantoprazole 20 mg tablet,delayed 40 mg PO DAILY@0630 05/10/24 06/05/24 release albuterol sulfate 2.5 mg/3 mL 2.5 mg inhalation Q4-6H PRN 06/05/24 06/05/24 (0.083 %) solution for nebulization Shortness Of Breath Or Wheezing gabapentin 400 mg capsule 400 mg PO TID 06/05/24 06/05/24 guaifenesin 100 mg/5 mL oral liquid 200 mg PO Q4-6H PRN Cough 06/05/24 06/05/24 tiotropium bromide 1.25 2 puff inhalation DAILY 06/05/24 06/05/24 mcg/actuation mist for inhalation (Spiriva Respimat) Previous Rx's ?Medication ?Instructions ?Recorded clonidine HCl 0.2 mg tablet 0.2 mg PO BEDTIME #30 tabs 03/22/23 olanzapine 10 mg tablet 10 mg PO BEDTIME #30 tabs 03/22/23 ropinirole 1 mg tablet 1 mg PO BEDTIME #30 tabs 03/22/23 apixaban 5 mg tablet (Eliquis) 5 mg PO BID #60 tabs 05/12/24 furosemide 20 mg tablet 20 mg PO Q OTHER DAY #30 tabs 06/07/24 guaifenesin 600 mg tablet, 600 mg PO BID #10 tabs 06/07/24 extended release 12 hr (Mucinex) nicotine 21 mg/24 hr daily 21 mg transdermal DAILY #30 ea 06/07/24 transdermal patch prednisone 20 mg tablet 40 mg (2 x 20 mg) PO DAILY #6 tabs 06/07/24 Allergies Allergy/AdvReac Type Severity Reaction Status Date / Time aspirin Allergy Mild Anaphylaxis Verified 06/16/24 16:08 ampicillin Allergy Rash Verified 06/16/24 16:08 enoxaparin [From Lovenox] Allergy Anaphylaxis Verified 06/16/24 16:08 Penicillins Allergy Anaphylaxis Verified 06/16/24 16:08 latex AdvReac Rash Verified 06/16/24 16:08 Latex, Natural Rubber AdvReac Rash Verified 06/16/24 16:08 seafood AdvReac Anaphylaxis Verified 06/16/24 16:08 Sulfa (Sulfonamide AdvReac Hives Verified 06/16/24 16:08 Antibiotics) Review of Systems 2 Review of Systems: Yes all other systems are reviewed and are negative PMFSH Past Medical History Medical History FABIOLA (obstructive sleep apnea) Asthma Morbid obesity Intentional overdose Acute bronchospasm Bipolar I disorder with depression Overdose on Tylenol Suicide attempt Asthma COPD (chronic obstructive pulmonary disease) Chronic lung disease Neoplasm of parotid gland Depression 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 Drug abuse Bipolar I disorder Post traumatic stress disorder (PTSD) Tobacco use disorder Borderline personality disorder Intermittent explosive disorder Asthma exacerbation in COPD Herpes Tobacco use Bipolar disorder COPD (chronic obstructive pulmonary disease) Surgical History History of ankle surgery History of back surgery Hx of cholecystectomy History of appendectomy Family History Family History Mother COPD (chronic obstructive pulmonary disease) Social History Social History Household Members: None Household Members Other:: So Housing: Apartment Housing Other:: Sleeps on the couch at [facility] house Do you presently have visiting nurse or other home services: Yes (visiting RN) Unable to assess alcohol history related to: Unknown Alcohol intake: former Comment: Sitter in room Patient Tobacco Use Status: Current everyday Tobacco user Tobacco use type: Cigarette Cigarette Packs Per Day: 1 Cigarettes Per Day: 20.0 Years Smoked: 20 e-Cigarette/Vaping Use: Currently Using Second Hand Smoke Exposure: No Substance Use Type: Crack/Cocaine Advance Directives: Yes Advance Directives on File: Yes Advance Directives Date on File: 06/17/22 Do you have a plan to hurt others: No Plan service: No Current occupational status: unemployed and disabled Sexual orientation: Straight/Heterosexual Physical Exam ED Vital Signs: Vital Signs - 24 hr 06/16/24 16:08 06/16/24 16:19 06/16/24 18:07 Temperature 98.1 F 99.1 F Pulse Rate 100 100 90 Respiratory Rate 20 23 H 20 Blood Pressure 113/61 114/71 Pulse Oximetry 94 91 L Oxygen Delivery Method Room Air Nasal Cannula Oxygen Flow Rate 3 BMI result Body Mass Index 35.9 Const Other: The patient is a chronically ill-appearing 54-year-old female who does not appear acutely ill. She is pleasant and cooperative. HENMT Other: Face is symmetrical. Mucous membranes moist. Mouth: Normal oral and palatal mucosa present Throat: Yes posterior oropharynx normal Eyes General: appearance normal, both eyes and all related structures Neck Neck: Yes no JVD Resp Other: No increased work of breathing. The patient has mild inspiratory and expiratory wheezes bilaterally. Breath sounds are symmetrical. No respiratory distress. Cardio Rate: regular rate Rhythm: regular rhythm Heart sounds: S1 normal heart sound present and S2 normal heart sound present GI Other: The patient has a protuberant abdomen that is soft and nontender. Skin Other: Skin is dry and unremarkable Neuro Other: The patient is awake and alert. Normally oriented and appropriate. Cranial nerves are grossly intact. Moving all 4 extremities normally. Extrem Other: Mild edema of both lower extremities. No calf swelling or tenderness. No asymmetry. Medications Administered Discontinued Medications Generic Name Dose Route Start Last Admin Trade Name Freq PRN Reason Stop Dose Admin Acetaminophen 975 mg 06/17/24 01:58 06/17/24 02:01 Acetaminophen 325 Mg Tablet PO 06/17/24 01:59 975 mg ONCE ONE Administration Albuterol Sulfate 2.5 mg/ 0 mg 06/16/24 16:20 06/16/24 16:25 Albuterol/Ipratropium 3 ml INHALE 06/16/24 16:21 1 dose ONCE ONE Administration Medical Decision Making Medical Decision Making [facility] Narrative: The patient is a 54-year-old female with a long history of multiple medical and psychiatric issues. She presents today complaining of worsening depression and thoughts of overdosing on her medications. She says that she is feeling bad because this is the anniversary of several deaths. She ultimately decided she would rather come to the hospital than overdose. The patient has some mild wheezes on exam. This is probably baseline for her. Otherwise she seems medically stable. She was given a DuoNeb updraft. The patient was medically cleared and was evaluated by the care team. Recommendation is for inpatient bed search. The patient will be placed in physician observation. Lab Data 06/16/24 17:35 06/16/24 16:56 Labs: Lab Results 06/16/24 06/16/24 06/16/24 Range/Units 16:56 17:11 17:35 WBC 10.3 (4.8-10.8) X10*3/uL RBC 5.01 (4.20-5.50) X10*6/uL Hgb 15.3 (12.0-16.0) g/dl Hct 49.5 H (37.0-47.0) % MCV 98.8 H (80.0-98.0) fL MCH 30.5 (27.0-33.0) pg MCHC 30.9 L (31.0-35.0) g/dl RDW 14.6 (11.0-16.0) % Plt Count 213 (160-400) X10*3/uL MPV 9.7 (9.4-12.3) fL Immature Gran % (Auto) 0.5 H (0.0-0.4) % Neut % (Auto) 70.1 (45-73) % Lymph % (Auto) 21.8 (20-40) % Reagan % (Auto) 5.6 (2-11) % Eos % (Auto) 1.4 (0-4) % Baso % (Auto) 0.6 (0-2) % Lymph # (Auto) 2.2 (1.2-4.9) X10*3/uL Reagan # (Auto) 0.6 (0.1-1.2) X10*3/uL Eos # (Auto) 0.1 (0.0-0.4) X10*3/uL Baso # (Auto) 0.1 (0.0-0.2) X10*3/uL Abs Immat Gran (auto) 0.05 H (0.00-0.03) X10*3/uL Absolute Neuts (auto) 7.2 (2.0-8.3) x10*3/uL Absolute Nucleated RBC 0.000 (0.0-0.012) X10*3/uL Nucleated RBC % (auto) 0.0 (0.0-0.2) /100WBC Sodium 144 (135-145) mmol/L Potassium 4.5 (3.3-5.1) mmol/L Chloride 102 (96-108) mmol/L Carbon Dioxide 33 H (22-29) mmol/L Anion Gap 14 (12-20) BUN 9 (9-16) mg/dL Creatinine 0.82 (0.5-1.4) mg/dL Estim Creat Clear Calc 95.1 Estimated GFR > 60 Random Glucose 120 H (60-115) mg/dL Calcium 10.6 H (8.4-10.2) mg/dL Total Bilirubin 0.3 (0.0-1.0) mg/dL Direct Bilirubin 0.1 (0.0-0.5) mg/dL AST 11 (5-31) U/L ALT 16 (0-31) U/L Alkaline Phosphatase 50 (39-117) U/L B-Natriuretic Peptide 30 (<100) pg/mL Total Protein 6.7 (6.5-8.0) g/dL Albumin 4.2 (3.5-5.0) g/dL Beta HCG, Quant < 2 mIU/mL Salicylates < 5.0 L (15-30) mg/dL Urine Opiates Screen Not Detected (Not Detect) Ur Buprenorphine Scrn Not Detected (Not Detect) ng/mL Ur Oxycodone Screen Not Detected (Not Detect) ng/mL Urine Methadone Screen Not Detected (Not Detect) ng/mL Urine Fentanyl Screen Not Detected (Not Detect) Acetaminophen < 3 (<30) mcg/mL Ur Barbiturates Screen Not Detected (Not Detect) Ur Phencyclidine Scrn Not Detected (Not Detect) Ur Amphetamines Screen Not Detected (Not Detect) U Benzodiazepines Scrn Not Detected (Not Detect) Trimble 0.87 (0.60-1.20) mmol/L Urine Cocaine Screen Not Detected (Not Detect) U Marijuana (THC) Screen Not Detected (Not Detect) Ethyl Alcohol < 10 mg/dL Independent Interpretation I performed an independent interpretation of an: EKG Interpretation: EKG at 16:29 shows normal sinus rhythm at 96 beats per minute. No acute ischemic changes. Discharge Plan Discharge Clinical Impression: Depression with suicidal ideation Patient Disposition: Still a Patient Prescriptions: No Action ropinirole 1 mg Tablet 1 mg PO BEDTIME Qty: 30 0RF olanzapine 10 mg Tablet 10 mg PO BEDTIME Qty: 30 0RF clonidine HCl 0.2 mg Tablet 0.2 mg PO BEDTIME Qty: 30 0RF Protocol: Hold for SBP< HOLD for SBP < : 90 cetirizine 10 mg Tablet 10 mg PO DAILY PRN (Reason: Allergy Symptoms) melatonin 3 mg Tablet 3 mg PO BEDTIME cholecalciferol (vitamin D3) [Vitamin D3] 25 mcg (1,000 unit) tablet 25 mcg PO DAILY ferrous sulfate 325 mg (65 mg iron) Tablet 325 mg PO DAILY fluticasone propion-salmeterol [Advair HFA] 115-21 mcg/actuation Hfa Aerosol Inhaler 2 puff INHALATION BID pantoprazole 20 mg Tablet,Delayed Release (Dr/Ec) 40 mg PO DAILY@0630 Eliquis 5 mg Tablet 5 mg PO BID Qty: 60 0RF lithium carbonate 450 mg tablet extended release 450 mg PO TID cyanocobalamin (vitamin B-12) [Vitamin B-12] 1,000 mcg tablet 1,000 mcg PO DAILY ipratropium-albuterol 0.5 mg-3 mg(2.5 mg base)/3 mL solution for nebulization 3 ml inhalation RQ6H PRN (Reason: Shortness Of Breath Or Wheezing) albuterol sulfate 2.5 mg /3 mL (0.083 %) Solution For Nebulization 2.5 mg INHALATION Q4-6H PRN (Reason: Shortness Of Breath Or Wheezing) gabapentin 400 mg Capsule 400 mg PO TID Spiriva Respimat 1.25 mcg/actuation Mist 2 puff INHALATION DAILY guaifenesin 100 mg/5 mL Liquid 200 mg PO Q4-6H PRN (Reason: Cough) prednisone 20 mg Tablet 40 mg PO DAILY Qty: 6 0RF nicotine 21 mg/24 hr Patch 24 Hour 21 mg transdermal DAILY Qty: 30 0RF guaifenesin [Mucinex] 600 mg Tablet Extended Release 12hr 600 mg PO BID Qty: 10 0RF furosemide 20 mg tablet 20 mg PO Q OTHER DAY Qty: 30 0RF Print Language: Maori
[2024-06-16 16:08] VITALS: BP 113/61; PULSE 100; RESP 20; TEMP 36.7; O2SAT 94; BMI 35.9
--- NOTE | 2024-06-16 16:17 | ECG_ITS ---
Test Reason : SOB Blood Pressure : / mmHG Vent. Rate : 096 BPM Atrial Rate : 096 BPM P-R Int : 130 ms QRS Dur : 082 ms QT Int : 352 ms P-R-T Axes : 021 037 026 degrees QTc Int : 444 ms Normal sinus rhythm Normal ECG When compared with ECG of 06-JUN-2024 08:25, No significant change was found Referred By: Geovanni Barros Electronically Signed By:KEMAR BADILLO
[2024-06-16 16:19] VITALS: PULSE 100; RESP 23; O2SAT 93
[2024-06-16] MEDS: Albuterol Sulfate 2.5 MG, Albuterol/Iprat 2.5/0.5MG 3 ML 3 ML INHALE (16:25)
--- NOTE | 2024-06-16 16:29 | PC.NURSE ---
patient changed over by this RN and certified hyperbaric technician, patient has three briefs at bedside, checked by this RN, along with her walker. Walker was checked by this RN, pockets included. briefs placed in walker, charge nurse Loki aware. patient changed into hospital attire. belongings secured.
[2024-06-16 17:11] LABS: Lithium 0.87 mmol/L (0.60-1.20)
[2024-06-16 17:20] LABS: Alanine Aminotransferase 16 U/L (0-31); Albumin Level 4.2 g/dL (3.5-5.0); Alkaline Phosphatase 50 U/L (39-117); Anion Gap 14 (12-20); Aspartate Amino Transferase 11 U/L (5-31); Bilirubin Direct 0.1 mg/dL (0.0-0.5); Bilirubin Total 0.3 mg/dL (0.0-1.0); Blood Urea Nitrogen 9 mg/dL (9-16); Calcium 10.6 mg/dL (8.4-10.2); Carbon Dioxide 33 mmol/L (22-29); Chloride 102 mmol/L (96-108); Creatinine Clr Calc Pharmacy 95.1; Estimated Glomerular Filt Rate > 60; Glucose Random 120 mg/dL (60-115); Potassium 4.5 mmol/L (3.3-5.1); Sodium 144 mmol/L (135-145); Total Protein 6.7 g/dL (6.5-8.0)
[2024-06-16 17:21] LABS: Ethanol < 10 mg/dL
[2024-06-16 17:27] LABS: HCG Quantitative < 2 mIU/mL
[2024-06-16 17:29] LABS: Amphetamine Screen Urine Not Detected (Not Detect); Barbiturates, Urine Not Detected (Not Detect); Benzodiazepines Screen Urine Not Detected (Not Detect); Buprenorphine Scr Not Detected (Not Detect); Cannabinoid Screen Urine Not Detected (Not Detect); Cocaine Screen Urine Not Detected (Not Detect); Fentanyl, urine Not Detected (Not Detect); Methadone Screen, Urine Not Detected (Not Detect); Opiate Screen Urine Not Detected (Not Detect); Oxycodone Screen Urine Not Detected (Not Detect); Phencyclidine Screen Urine Not Detected (Not Detect)
[2024-06-16 17:34] LABS: Acetaminophen LAB < 3 mcg/mL (<30); Salicylate < 5.0 mg/dL (15-30)
[2024-06-16 17:39] LABS: B Type Natriuretic Peptide 30 pg/mL (<100)
[2024-06-16 17:41] LABS: Basophils Absolute Auto 0.1 X10*3/uL (0.0-0.2); Basophils Percent Auto 0.6 % (0-2); Eosinophils Absolute Auto 0.1 X10*3/uL (0.0-0.4); Eosinophils Percent Auto 1.4 % (0-4); Hematocrit 49.5 % (37.0-47.0); Hemoglobin 15.3 g/dl (12.0-16.0); Imm Gran Abs Auto 0.05 X10*3/uL (0.00-0.03); Imm Gran Pct Auto 0.5 % (0.0-0.4); Lymphocytes Absolute Auto 2.2 X10*3/uL (1.2-4.9); Lymphocytes Percent Auto 21.8 % (20-40); Mean Corpuscular HGB Conc 30.9 g/dl (31.0-35.0); Mean Corpuscular Hemoglobin 30.5 pg (27.0-33.0); Mean Corpuscular Volume 98.8 fL (80.0-98.0); Mean Platelet Volume 9.7 fL (9.4-12.3); Monocytes Absolute Auto 0.6 X10*3/uL (0.1-1.2); Monocytes Percent Auto 5.6 % (2-11); Neutrophils Absolute Auto 7.2 x10*3/uL (2.0-8.3); Neutrophils Percent Auto 70.1 % (45-73); Platelet Count 213 X10*3/uL (160-400); Red Blood Count 5.01 X10*6/uL (4.20-5.50); Red Cell Distribution Width 14.6 % (11.0-16.0); White Blood Count 10.3 X10*3/uL (4.8-10.8)
[2024-06-16 18:07] VITALS: BP 114/71; PULSE 90; RESP 20; TEMP 37.3; O2SAT 91
--- NOTE | 2024-06-17 | ECG_ITS ---
Test Reason : CHEST PAIN Blood Pressure : / mmHG Vent. Rate : 091 BPM Atrial Rate : 091 BPM P-R Int : 134 ms QRS Dur : 082 ms QT Int : 372 ms P-R-T Axes : 029 054 039 degrees QTc Int : 457 ms Normal sinus rhythm Normal ECG When compared with ECG of 16-JUN-2024 16:29, No significant change was found Referred By: Geovanni Barros Electronically Signed By:KEMAR BADILLO
[2024-06-17] MEDS: Acetaminophen 325 MG TABLET 975 MG PO (02:01)
[2024-06-17 06:39] VITALS: BP 129/88; PULSE 88; RESP 19; TEMP 36.7; O2SAT 91
--- NOTE | 2024-06-17 07:07 | PC.NURSE ---
report recieved from previous rn, patient resting comfortably on stretcher, breakfast tray provided, sitter remains at bedside, patient states she wears 3L of O2 at baseline at home, was offered Cpap last night however refused, stated to this RN sometimes it makes my breathing worse so i didnt want it patient sitting upright on stretcher, callbell within reach, all safety maintained
--- NOTE | 2024-06-17 08:21 | PC.NURSE ---
pharmacy called to complete med rec
--- NOTE | 2024-06-17 08:32 | PC.NURSE ---
patient ambulatory with steady gait to bathroom with tech to clean up.
--- NOTE | 2024-06-17 08:38 | MHC.EDTECH ---
Walked patient to bathroom to wash up and change danita and pull up/ bed linen changed
[2024-06-17 10:47] VITALS: BP 144/90; PULSE 85; RESP 19; TEMP 35.8; O2SAT 92
--- NOTE | 2024-06-17 11:13 | PC.NURSE ---
second call placed to pharmacy to complete med rec. stated they are sending someone now complete med rec
--- NOTE | 2024-06-17 11:41 | PC.NURSE ---
pharmacy attempted to speak with patient to do med rec, patient sleeping and would not wake up per sitter
--- NOTE | 2024-06-17 11:45 | PC.NURSE ---
attempted to call patient pharmacy to get current medication list, patient pharmacy closed at this time.
--- NOTE | 2024-06-17 13:02 | PHA.MEDREC ---
Addendum entered by Myriam Guerra [facility] 06/18/24 08:34: [place] confirmed patient is not on Lasix Addendum entered by Jeff Davison [facility] 06/17/24 14:02: Reviewed by [facility], ask med rec tech monday 06/18 to follow up on Lasix with [place] Original Note: Pharmacy Consult ? Medication Reconciliation Pharmacy has completed the medication reconciliation. spoke with patient to confirm medications. She reports she is not taking a water pill as far as she knows. Unable to see claim history and [place] is closed. will leave off furosemide for now. She finished taking the prednisone. She uses gabapentin as needed for pain. She has not been taking her medications lately. She does not know when she last took lithium but confirmed it was TID. She reports the Advair is prn. She reports no changes since she was last here. Med rec was done 06/05 and was confirmed with [place].
[2024-06-17] MEDS: Cyanocobalamin (Vitamin B-12) 1,000 MCG TABLET 1000 MCG PO (13:39)
[2024-06-17] MEDS: Cholecalciferol (Vitamin D3) 25 MCG TABLET PO (13:39)
[2024-06-17] MEDS: Albuterol Sulfate (0.083%) 2.5 MG/3 ML VIAL.NEB INHALE ×2 (13:40→19:03)
[2024-06-17] MEDS: Nicotine 21 MG PATCH.TD24 TRANSDERMA (13:40)
[2024-06-17] MEDS: Apixaban 5 MG TABLET PO ×2 (13:40→22:44)
[2024-06-17] MEDS: Albuterol/Iprat 2.5/0.5MG 3 ML AMPUL.NEB INHALE (13:40)
--- NOTE | 2024-06-17 13:53 | PC.NURSE ---
patient provided with lunch tray, medicated per MAR
[2024-06-17] MEDS: Lithium Carbonate ER 450 MG TABLET.ER PO ×2 (16:28→22:44)
[2024-06-17 17:03] VITALS: BP 139/96; RESP 16; TEMP 36.7; O2SAT 92
[2024-06-17 19:03] VITALS: PULSE 87; RESP 20; O2SAT 94
--- NOTE | 2024-06-17 19:22 | PC.NURSE ---
pt reported feeling sob, 91% on 2L NC. bilat expiratory wheezing ausc throughout. RT notified for prn breathing tx. pt reports breathing improved after tx. sats 94% on 2L NC. wheezing improved. pt resting comfortably at this time. 1:1 sitter at bedside.
[2024-06-17 22:00] VITALS: BP 138/92; PULSE 90; RESP 20; TEMP 36.9; O2SAT 92
--- NOTE | 2024-06-17 22:30 | PC.NURSE ---
pt is sleeping at this time 2100 meds not given at this time.
[2024-06-17] MEDS: Melatonin 3 MG TABLET PO (22:44)
[2024-06-17] MEDS: cloNIDine HCL 0.2 MG TABLET PO (22:44)
[2024-06-17] MEDS: OLANZapine 10 MG TABLET PO (22:44)
[2024-06-17] MEDS: rOPINIRole HCL 1 MG TABLET PO (22:44)
--- NOTE | 2024-06-17 22:57 | PC.NURSE ---
while medicated pt with 2100 meds pt reports sudden onset L. sided cp at 10/10. pt placed on heart monitor and vitals obtained. nsr on monitor rhythm as reflected on previous ekg. new ekg ordered. MD Nova made aware. no further orders. pt tolerated po meds. speaking full clear sentences. pt denies sob. ekg being obtained at this time.
[2024-06-17 23:35] VITALS: BP 104/57; PULSE 79; RESP 22; TEMP 36.5; O2SAT 91
[2024-06-18] VITALS (8 sets, daily range): BP systolic 139–160; BP diastolic 72–95; PULSE 76–85; RESP 15–22; TEMP 35.6–36.9; O2SAT 91–94
[2024-06-18] MEDS: Albuterol/Iprat 2.5/0.5MG 3 ML AMPUL.NEB INHALE ×2 (02:39→15:09)
--- NOTE | 2024-06-18 02:57 | PC.NURSE ---
pt desat to 82% on 2L NC. pt sat upright and woken up. sats 87-88%. RT notified for breathing tx prn as ausc expiratory wheezing throughout. after breathing tx sats and wheezing improved. pt resting comfortably at this time, denies pain/cp/sob. 1:1 sitter at bedside.
--- NOTE | 2024-06-18 03:59 | PC.NURSE ---
pt taking off nasal cannula while sleeping upon awaking reports its accidental. pt asked if needs cpap at night pt verbalizes she does however does not use it. refusing cpap. pt educated to keep nasal cannula on as when off desat to 85-87% on RA. pt verbalizes understanding. sats 94% 2L NC at this time.
[2024-06-18] MEDS: Omeprazole 20 MG CAPSULE.DR PO (06:29)
--- NOTE | 2024-06-18 06:33 | PC.NURSE ---
pt ambulatory with steady gait to bathroom with walker. on arrival to room medicated per dec. pt reports feeling sob, wheezing ausc. RT notified. sats 93% on 2L NC.
[2024-06-18] MEDS: Cholecalciferol (Vitamin D3) 25 MCG TABLET PO (08:42)
[2024-06-18] MEDS: Ferrous Sulfate 324 MG TABLET.DR PO (08:43)
[2024-06-18] MEDS: Apixaban 5 MG TABLET PO ×2 (08:43→20:40)
[2024-06-18] MEDS: Cyanocobalamin (Vitamin B-12) 1,000 MCG TABLET 1000 MCG PO (08:43)
[2024-06-18] MEDS: Nicotine 21 MG PATCH.TD24 TRANSDERMA (08:55)
[2024-06-18] MEDS: Lithium Carbonate ER 450 MG TABLET.ER PO ×3 (09:11→20:40)
--- NOTE | 2024-06-18 09:16 | PC.NURSE ---
pt medicated per DEC, resp contacted RE: inhalers - per resp pharmacy contacted d/t none in pyxis. pt continues to report SI thoughts, plan for inpt bedsearch.
[2024-06-18] MEDS: Fluticasone/Vilanterol 100/25 BLST.W.DEV 1 PUFF INHALE (09:47)
[2024-06-18] MEDS: Tiotropium Bromide 2.5 mcg 1 PUFF/2.5 MCG MIST.INHAL 2 PUFF INHALE (09:47)
[2024-06-18 10:24] LABS: Appearance Urine Cloudy; Color Urine Yellow; Glucose Urine UA Negative (Negative); Leukocyte Esterase Urine Large (3+) (Negative); Nitrite Urine Negative (Negative); PH 7.5 (5.0-9.0); UMIC TRIGGER UACC YES; Urine Blood Small (1+) (Negative); Urine Ketones Negative (Negative); Urine Protein Negative (Neg-Trace)
--- NOTE | 2024-06-18 10:29 | MHC.CM.PN ---
PT IS ACTIVE WITH [facility] RETURN REFERRAL PLACED FOR THEM TO FOLLOW
[2024-06-18 10:36] LABS: Bacteria Urine 1+ (None Seen); Hyaline Casts Urine 0-2 /LPF (0-2); UACC Culture Trigger YES; WBC Urine >50 /HPF (0-5)
--- NOTE | 2024-06-18 15:21 | MHC.CARE ---
Pt requesting discharge, however she has a lock box at home she broke into and has access to medications. Patient has history of suicidal attempts via overdosing. Clinician called [facility] and spoke with RN Shanell who is director, she reports [facility] could met patient at home and secure meds and provide new lock box, however this can't be done until tomorrow. Patient was informed of this and was irritable requesting to speak with CARE human resources team member. Coordinator Kaity Lopez informed and reports someone will come to speak with patient.
[2024-06-18] MEDS: cloNIDine HCL 0.2 MG TABLET PO (20:39)
[2024-06-18] MEDS: Melatonin 3 MG TABLET PO (20:39)
[2024-06-18] MEDS: Doxycycline Monohydrate 100 MG CAPSULE PO (20:39)
[2024-06-18] MEDS: OLANZapine 10 MG TABLET PO (20:40)
[2024-06-18] MEDS: rOPINIRole HCL 1 MG TABLET PO (20:40)
[2024-06-19] MEDS: Omeprazole 20 MG CAPSULE.DR PO (06:00)
[2024-06-19] MEDS: Acetaminophen 325 MG TABLET 650 MG PO (06:00)
[2024-06-19 06:10] VITALS: BP 104/50; PULSE 74; RESP 18; TEMP 36.4; O2SAT 93
[2024-06-19 07:38] VITALS: PULSE 74; RESP 18
[2024-06-19] MEDS: Fluticasone/Vilanterol 100/25 BLST.W.DEV 1 PUFF INHALE (07:39)
[2024-06-19] MEDS: Tiotropium Bromide 2.5 mcg 1 PUFF/2.5 MCG MIST.INHAL 2 PUFF INHALE (07:39)
--- NOTE | 2024-06-19 08:01 | MHC.CARE ---
Left message with the answering service in regard to coordinating a time when Bhavana can be discharged to meet staff at the home with a new, secured lock box. Someone from [facility] will be calling the CARE team back.
--- NOTE | 2024-06-19 08:37 | MHC.CARE ---
T/W spoke with Ligia Cortez in regard to D/C for Pt. Ligia reported that she feels safe to D/C home as this is Pt's baseline. T/W reported that the ED provider was not comfortable with D/C plan at this time and Ligia will reach out to A[facility] Pedro to discuss possible D/C. T/W will continue to follow up with [facility].
[2024-06-19] MEDS: Lithium Carbonate ER 450 MG TABLET.ER PO (09:41)
[2024-06-19] MEDS: Nicotine 21 MG PATCH.TD24 TRANSDERMA (09:41)
[2024-06-19] MEDS: Apixaban 5 MG TABLET PO (09:41)
[2024-06-19] MEDS: Cyanocobalamin (Vitamin B-12) 1,000 MCG TABLET 1000 MCG PO (09:41)
[2024-06-19] MEDS: Ferrous Sulfate 324 MG TABLET.DR PO (09:41)
[2024-06-19] MEDS: Doxycycline Monohydrate 100 MG CAPSULE PO (09:42)
[2024-06-19] MEDS: Cholecalciferol (Vitamin D3) 25 MCG TABLET PO (09:42)
--- NOTE | 2024-06-19 10:10 | MHC.CARE ---
T/W spoke with Emre Pt's [facility] nurse who stated that he was at her apartment this morning at 7am as planned however she was not there. He was agreeable to returning to her home at 11am to meet her with a new lock box for her medications. Provider is in agreement with this and Pt will be discharged home for 11am via [employer].
[2024-06-19 10:18] VITALS: BP 138/52; PULSE 78; RESP 19; TEMP 36.6; O2SAT 93
[2024-06-19 10:19] VITALS: BP 138/52; PULSE 78; RESP 19; TEMP 36.6; O2SAT 93
== END 2024-06-19 10:33 | disposition home or self-care (01) ==
PROVIDERS: Emergency Provider Emergency Medicine
DX: F31.9 Bipolar disorder, unspecified (principal); R45.851 Suicidal ideations; L73.8 Other specified follicular disorders; F60.3 Borderline personality disorder; F14.10 Cocaine abuse, uncomplicated; F19.10 Other psychoactive substance abuse, uncomplicated; J96.22 Acute and chronic respiratory failure with hypercapnia; G47.33 Obstructive sleep apnea (adult) (pediatric); J44.9 Chronic obstructive pulmonary disease, unspecified; Z99.81 Dependence on supplemental oxygen; E66.2 Morbid (severe) obesity with alveolar hypoventilation; Z68.35 Body mass index [BMI] 35.0-35.9, adult; J45.909 Unspecified asthma, uncomplicated; F17.210 Nicotine dependence, cigarettes, uncomplicated; Z86.711 Personal history of pulmonary embolism; Z79.01 Long term (current) use of anticoagulants; Z79.899 Other long term (current) drug therapy; Z03.818 Encounter for observation for suspected exposure to other biological agents ruled out
CPT/HCPCS: 36415; 80048; 80076; 80143; 80178; 80179; 80307; 81001; 83880; 84702; 85025; 87086; 93005; 94640; 99285; S9485

== ENCOUNTER 2024-06-24 15:43 | Emergency (ER) | payer MEDICAID, SELFPAY ==
--- NOTE | ~2024-06-24 | XR_ITS ---
EXAMINATION: XR CHEST CLINICAL INFORMATION: Shortness of breath. COMPARISON: Chest radiograph 06/05/2024. TECHNIQUE: Frontal view of the chest was obtained. FINDINGS: Unchanged appearance of the cardiomediastinal silhouette. Unchanged diffuse interstitial coarsening. Similar to slightly decreased bibasilar reticular and hazy opacities, for example with some residual very subtle focal opacities overlying the lateral left lower lung field adjacent to the costophrenic angle. No new focal air space densities. No pleural effusion. No pneumothorax. No acute osseous findings. XR/XR chest 1V IMPRESSION: Similar to slightly decreased bibasilar airspace opacities and stable diffuse interstitial coarsening suggesting a not entirely yet resolved atypical infectious/inflammatory process. Recommend clinical correlation and follow-up with chest radiograph in 3 months to ensure appropriate resolution. If these persist on short-term follow-up, then further characterization with CT chest is advised. Electronically signed by: Tona Mcdowell MD 06/24/2024 05:33 PM EDT
--- NOTE | ~2024-06-24 | XR_ITS ---
EXAMINATION: XR KNEE, LEFT CLINICAL INFORMATION: Fall, pain. COMPARISON: Radiograph left knee 10/11/2018. TECHNIQUE: Four views of the left knee. FINDINGS: No acute fracture or subluxation. Mild tricompartmental degenerative changes more prominent in the medial and patellofemoral compartments with joint space narrowing and marginal osteophytes. No unusual soft tissue calcifications. No joint effusion. XR/XR knee LT 4V IMPRESSION: No acute fracture or subluxation. Mild tricompartmental degenerative changes. Electronically signed by: Tona Mcdowell MD 06/24/2024 05:36 PM EDT
[2024-06-24 15:58] VITALS: BP 131/82; PULSE 90; O2SAT 94
--- NOTE | 2024-06-24 15:58 | ED.SOB ---
HPI - SOB/Dyspnea General Chief Complaint: Upper Respiratory Symptoms Stated Complaint: SOB x2 days, initial 90%RA, 3L at home, duoneb Time Seen by Provider: 06/24/24 15:58 Source: patient Mode of arrival: EMS Limitations: no limitations History of Present Illness ED Provider: Dr. Oswaldo Hollis HPI Narrative: 54-year-old female with a history of chronic hypoxic and hypercapnic respiratory failure due to COPD on 3 L home O2, chronic diastolic CHF, FABIOLA, morbid obesity, history of pulmonary embolism on Eliquis, bipolar presented with shortness of breath x2 days, nonproductive cough, 1 episode of chest pain yesterday, fall 2 days prior with left knee injury and left knee pain. Patient states that she continues to smoke in over the past 2 days she has not been able to smoke secondary to her shortness of breath. She states that her shortness of breath got worse today so she called an ambulance. She was given a DuoNeb nebulizer treatment EN route to the hospital with some improvement of her symptoms . She also states that 2 days prior she was walking in her kitchen, slipped and fell and landed on her knees. She states that since the fall she has had pain in her left knee and has had difficulty using her walker but is able to ambulate with her cane. She denies any head injury from the fall. She states she has been using her CPAP machine at home. Reviewing the patient's chart she was last admitted on 06/05/2024 for accidental overdose of gabapentin and COPD exacerbation CHF. She was treated with IV Lasix and with steroids as well as respiratory treatments. Patient has been admitted frequently for respiratory issues. Related Data Home Medications ?Medication ?Instructions ?Recorded ?Confirmed lithium carbonate 450 mg 450 mg PO TID 05/14/23 06/17/24 tablet,extended release cyanocobalamin (vitamin B-12) 1,000 mcg PO DAILY 06/11/23 06/17/24 1,000 mcg tablet (Vitamin B-12) ipratropium 0.5 mg-albuterol 3 mg 3 ml inhalation RQ6H PRN Shortness 06/11/23 06/17/24 (2.5 mg base)/3 mL nebulization Of Breath Or Wheezing soln cetirizine 10 mg tablet 10 mg PO DAILY PRN Allergy Symptoms 12/19/23 06/17/24 melatonin 3 mg tablet 3 mg PO BEDTIME 12/19/23 06/17/24 cholecalciferol (vitamin D3) 25 25 mcg PO DAILY 02/20/24 06/17/24 mcg (1,000 unit) tablet (Vitamin D3) ferrous sulfate 325 mg (65 mg 325 mg PO DAILY 05/10/24 06/17/24 iron) tablet fluticasone propionate 115 2 puff inhalation BID PRN 05/10/24 06/17/24 mcg-salmeterol 21 mcg/actuation Shortness Of Breath Or Wheezing HFA inhaler (Advair HFA) pantoprazole 20 mg tablet,delayed 40 mg PO DAILY@0630 05/10/24 06/17/24 release albuterol sulfate 2.5 mg/3 mL 2.5 mg inhalation Q4-6H PRN 06/05/24 06/17/24 (0.083 %) solution for nebulization Shortness Of Breath Or Wheezing gabapentin 400 mg capsule 400 mg PO TID PRN Pain 06/05/24 06/17/24 guaifenesin 100 mg/5 mL oral liquid 200 mg PO Q4-6H PRN Cough 06/05/24 06/17/24 tiotropium bromide 1.25 2 puff inhalation DAILY 06/05/24 06/17/24 mcg/actuation mist for inhalation (Spiriva Respimat) Previous Rx's ?Medication ?Instructions ?Recorded clonidine HCl 0.2 mg tablet 0.2 mg PO BEDTIME #30 tabs 03/22/23 olanzapine 10 mg tablet 10 mg PO BEDTIME #30 tabs 03/22/23 ropinirole 1 mg tablet 1 mg PO BEDTIME #30 tabs 03/22/23 apixaban 5 mg tablet (Eliquis) 5 mg PO BID #60 tabs 05/12/24 nicotine 21 mg/24 hr daily 21 mg transdermal DAILY #30 ea 06/07/24 transdermal patch doxycycline hyclate 100 mg capsule 100 mg PO BID 6 days #12 caps 06/19/24 Allergies Allergy/AdvReac Type Severity Reaction Status Date / Time aspirin Allergy Mild Anaphylaxis Verified 06/24/24 16:02 ampicillin Allergy Rash Verified 06/24/24 16:02 enoxaparin [From Lovenox] Allergy Anaphylaxis Verified 06/24/24 16:02 Penicillins Allergy Anaphylaxis Verified 06/24/24 16:02 latex AdvReac Rash Verified 06/24/24 16:02 Latex, Natural Rubber AdvReac Rash Verified 06/24/24 16:02 seafood AdvReac Anaphylaxis Verified 06/24/24 16:02 Sulfa (Sulfonamide AdvReac Hives Verified 06/24/24 16:02 Antibiotics) Review of Systems Review of Systems: Yes all other systems are reviewed and are negative [facility] Past Medical History Medical History FABIOLA (obstructive sleep apnea) Asthma Morbid obesity Intentional overdose Acute bronchospasm Bipolar I disorder with depression Overdose on Tylenol Suicide attempt Asthma COPD (chronic obstructive pulmonary disease) Chronic lung disease Neoplasm of parotid gland Depression 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 Drug abuse Bipolar I disorder Post traumatic stress disorder (PTSD) Tobacco use disorder Borderline personality disorder Intermittent explosive disorder Asthma exacerbation in COPD Herpes Tobacco use Bipolar disorder COPD (chronic obstructive pulmonary disease) Surgical History History of ankle surgery History of back surgery Hx of cholecystectomy History of appendectomy Family History Family History Mother COPD (chronic obstructive pulmonary disease) Social History Social History Household Members: None Household Members Other:: So Housing: Apartment Housing Other:: Sleeps on the couch at [facility] house Do you presently have visiting nurse or other home services: Yes (visiting RN) Unable to assess alcohol history related to: Unknown Alcohol intake: former Comment: Sitter in room Patient Tobacco Use Status: Current everyday Tobacco user Tobacco use type: Cigarette Cigarette Packs Per Day: 1 Cigarettes Per Day: 20.0 Years Smoked: 20 e-Cigarette/Vaping Use: Currently Using Second Hand Smoke Exposure: No Substance Use Type: Crack/Cocaine Advance Directives: Yes Advance Directives on File: Yes Advance Directives Date on File: 06/17/22 service: No Current occupational status: unemployed and disabled Sexual orientation: Straight/Heterosexual Physical Exam Vital Signs: Vital Signs: Last Vital Signs Temp 98.7 F 06/24/24 20:20 Pulse 84 06/24/24 20:20 Resp 20 06/25/24 01:16 BP 145/78 H 06/24/24 20:20 Pulse Ox 90 L 06/24/24 20:22 O2 Del Method Nasal Cannula 06/24/24 20:22 O2 Flow Rate 4 06/24/24 20:20 Oxygen Flow Rate 4 06/24/24 20:22 BMI result Body Mass Index 46.3 Exam: General: Awake, alert in no distress, weight 130 kg with elevated BMI of 46.3 Head: Normocephalic, atraumatic EENT: PERRL, Lids normal, sclera normal, conjunctiva normal, nose normal , ears normal, throat without erythema or exudates Neck: Supple, no adenopathy Lung: breath sounds symmetric, patient has rales at the bases with diffuse wheezing and no rhonchi Chest: symmetric movement, nontender Heart: regular rate and rhythm, normal S1, S2 no murmurs or rubs Abdomen: soft, non-tender, nondistended, normal bowel sounds Back: no vertebral tenderness, no CVAT Extremities: Tenderness palpation of the left knee with no obvious deformity, she has trace to 1 pitting edema bilaterally symmetric, there was erythema to both lower extremities with no increased warmth Neuro: Awake, alert, oriented, normal speech, cranial nerves intact, moves all extremities symmetrically Psych: Pleasant, cooperative Medications Administered Discontinued Medications Generic Name Dose Route Start Last Admin Trade Name Freq PRN Reason Stop Dose Admin Albuterol Sulfate 2.5 mg/ 0 mg 06/24/24 16:27 06/24/24 16:32 Albuterol/Ipratropium 3 ml INHALE 06/24/24 16:28 1 dose ONCE ONE Administration Methylprednisolone Sodium Succinate 125 mg 06/24/24 16:10 06/24/24 17:18 Methylprednisolone Sod Succ 125 Mg/2 Ml Vial IVPUSH 06/24/24 16:11 125 mg ONCE ONE Administration Medical Decision Making Medical Decision Making MDM Narrative: 54-year-old female with a history of chronic hypoxic and hypercapnic respiratory failure due to COPD on 3 L home O2, chronic diastolic CHF, FABIOLA, morbid obesity, history of pulmonary embolism on Eliquis, bipolar presented with shortness of breath x2 days, nonproductive cough, 1 episode of chest pain yesterday, fall 2 days prior with left knee injury and left knee pain. Patient did receive a DuoNeb EN route with some improvement of her shortness of breath. Lung exam did reveal bilateral lower lobe rales with wheezing and no rhonchi. Patient also has tenderness palpation of her left knee. Differential diagnosis: ?Includes but is not limited to myocardial infarction, myocardial ischemia, congestive heart failure bronchitis, pneumonia, chronic lung disease exacerbation, anemia, electrolyte abnormalities, left knee contusion, left knee fracture Following evaluation was ordered: CBC, CMP, lactic acid, lipase, magnesium, PTT, troponin, BNP, VBG, COVID-19, influenza, RSV, urinalysis, chest x-ray, left knee x-ray Patient was initially treated with the following: Bronchodilator protocol, Solu-Medrol 125 mg IV Course: 02:42 Start physician observation My interpretation patient's laboratory evaluation as follows: Elevated hemoglobin 52.6 secondary to her chronic hypoxia. CMP was normal. Troponin was below detectable limits. Lipase was normal. COVID-19, influenza and RSV were normal. Venous pH was 7.5 with normal pCO2 41 and a low bicarb of 29-patient has no respiratory acidosis which is reassuring. Ethanol was below detectable limits. Urine tox screen was pending collection of urine My interpretation patient's chest x-ray is increased interstitial markings but I do not think that she was acute pneumonia at this time. Patient's presentation is consistent with a COPD exacerbation. The patient was difficult to get an IV in and she refused ultrasound-guided IV. Patient does have obstructive sleep apnea and I did place her on her CPAP. Given the time of night, I do not think that the patient can be transported home therefore she will be kept in the emergency department for observation and will be discharged in the morning. Patient will be treated for COPD exacerbation with prednisone 60 mg once a day for 5 days. At the end of my shift, the patient's care was turned over to my colleague, Dr. Priscila Lynn Admission/Observation Consideration of admission/observation: Escalation of care including admission/observation considered Lab Data MDM Lab Attestation statement: I reviewed the patient's lab results. 06/24/24 16:51 06/24/24 16:51 Labs: Lab Results 06/24/24 06/24/24 Range/Units 16:51 16:59 WBC 8.5 (4.8-10.8) X10*3/uL RBC 5.25 (4.20-5.50) X10*6/uL Hgb 15.8 (12.0-16.0) g/dl Hct 52.6 H (37.0-47.0) % MCV 100.2 H (80.0-98.0) fL MCH 30.1 (27.0-33.0) pg MCHC 30.0 L (31.0-35.0) g/dl RDW 14.2 (11.0-16.0) % Plt Count 181 (160-400) X10*3/uL MPV 10.5 (9.4-12.3) fL Immature Gran % (Auto) 0.4 (0.0-0.4) % Neut % (Auto) 64.4 (45-73) % Lymph % (Auto) 26.9 (20-40) % [place] % (Auto) 5.6 (2-11) % Eos % (Auto) 1.8 (0-4) % Baso % (Auto) 0.9 (0-2) % Lymph # (Auto) 2.3 (1.2-4.9) X10*3/uL [place] # (Auto) 0.5 (0.1-1.2) X10*3/uL Eos # (Auto) 0.2 (0.0-0.4) X10*3/uL Baso # (Auto) 0.1 (0.0-0.2) X10*3/uL Abs Immat Gran (auto) 0.03 (0.00-0.03) X10*3/uL Absolute Neuts (auto) 5.5 (2.0-8.3) x10*3/uL Absolute Nucleated RBC 0.000 (0.0-0.012) X10*3/uL Nucleated RBC % (auto) 0.0 (0.0-0.2) /100WBC VBG pH 7.45 H (7.32-7.43) VBG pCO2 41 mmHg VBG pO2 147 mmHg VBG HCO3 29 H (22-26) mmol/L VBG O2 Saturation 100.0 % VBG Base Excess 5.0 mmol/L Sodium 140 (135-145) mmol/L Potassium 4.4 (3.3-5.1) mmol/L Chloride 106 (96-108) mmol/L Carbon Dioxide 27 (22-29) mmol/L Anion Gap 11 L (12-20) BUN 8 L (9-16) mg/dL Creatinine 0.69 (0.5-1.4) mg/dL Estim Creat Clear Calc 130.3 Estimated GFR > 60 Random Glucose 101 (60-115) mg/dL Lactic Acid 1.1 (0.5-2.0) mmol/L Calcium 10.3 H (8.4-10.2) mg/dL Magnesium 2.1 (1.6-2.6) mg/dL Total Bilirubin 0.2 (0.0-1.0) mg/dL AST 12 (5-31) U/L ALT 16 (0-31) U/L Alkaline Phosphatase 60 (39-117) U/L Troponin I High Sens < 2.7 (<3.5-17.0) ng/L B-Natriuretic Peptide 34 (<100) pg/mL Total Protein 7.0 (6.5-8.0) g/dL Albumin 4.3 (3.5-5.0) g/dL Lipase 22 (8-78) U/L Ethyl Alcohol < 10 mg/dL Influenza Type A (PCR) NEGATIVE (Negative) Influenza Type B (PCR) NEGATIVE (Negative) RSV RNA Qual (PCR) NEGATIVE (Negative) SARS-CoV-2 RNA (RT-PCR) NEGATIVE (Negative) Independent Interpretation I performed an independent interpretation of an: EKG and Plain X-Ray Interpretation: Chest x-ray is as follows: No acute disease My interpretation patient's 12 EKG is as follows: Normal sinus rhythm rate of 85, normal TX interval, QRS duration QTC interval, no ST segment elevation, no ST segment depression no PACs, no PVCs, no significant T-wave abnormalities. Radiology Impression Discussion of test interpretation with radiology: I have reviewed the radiologist's reading. Radiologist Impression: XR chest 1V IMPRESSION: Similar to slightly decreased bibasilar airspace opacities and stable diffuse interstitial coarsening suggesting a not entirely yet resolved atypical infectious/inflammatory process. Recommend clinical correlation and follow-up with chest radiograph in 3 months to ensure appropriate resolution. If these persist on short-term follow-up, then further characterization with CT chest is advised. EDictated By: Lakesha Mcdowell Discharge Plan Discharge Clinical Impression: Acute exacerbation of chronic obstructive pulmonary disease, Obstructive sleep apnea Patient Disposition: Home, Self-Care Instructions: COPD (Chronic Obstructive Pulmonary Disease) (DC) Additional Instructions: Your chest x-ray did not reveal any clear evidence for pneumonia Your blood work was normal. Your symptoms are consistent with a exacerbation of your chronic underlying lung disease. Take prednisone 20 mg pills, 3 pills once a day for 5 days. While you ?are taking prednisone, do not take any NSAIDs (Motrin, Advil, ibuprofen, Aleve, naproxen). Continue taking medications as prescribed by your provider Follow-up with your doctor in 2 days. Please return to the emergency department if your symptoms get worse or if you develop any symptoms that are concerning to you. Prescriptions: No Action ropinirole 1 mg Tablet 1 mg PO BEDTIME Qty: 30 0RF olanzapine 10 mg Tablet 10 mg PO BEDTIME Qty: 30 0RF clonidine HCl 0.2 mg Tablet 0.2 mg PO BEDTIME Qty: 30 0RF Protocol: Hold for SBP< HOLD for SBP < : 90 cetirizine 10 mg Tablet 10 mg PO DAILY PRN (Reason: Allergy Symptoms) melatonin 3 mg Tablet 3 mg PO BEDTIME cholecalciferol (vitamin D3) [Vitamin D3] 25 mcg (1,000 unit) tablet 25 mcg PO DAILY ferrous sulfate 325 mg (65 mg iron) Tablet 325 mg PO DAILY fluticasone propion-salmeterol [Advair HFA] 115-21 mcg/actuation Hfa Aerosol Inhaler 2 puff INHALATION BID PRN (Reason: Shortness Of Breath Or Wheezing) pantoprazole 20 mg Tablet,Delayed Release (Dr/Ec) 40 mg PO DAILY@0630 Eliquis 5 mg Tablet 5 mg PO BID Qty: 60 0RF lithium carbonate 450 mg tablet extended release 450 mg PO TID cyanocobalamin (vitamin B-12) [Vitamin B-12] 1,000 mcg tablet 1,000 mcg PO DAILY ipratropium-albuterol 0.5 mg-3 mg(2.5 mg base)/3 mL solution for nebulization 3 ml inhalation RQ6H PRN (Reason: Shortness Of Breath Or Wheezing) albuterol sulfate 2.5 mg /3 mL (0.083 %) Solution For Nebulization 2.5 mg INHALATION Q4-6H PRN (Reason: Shortness Of Breath Or Wheezing) gabapentin 400 mg Capsule 400 mg PO TID PRN (Reason: Pain) Spiriva Respimat 1.25 mcg/actuation Mist 2 puff INHALATION DAILY guaifenesin 100 mg/5 mL Liquid 200 mg PO Q4-6H PRN (Reason: Cough) nicotine 21 mg/24 hr Patch 24 Hour 21 mg transdermal DAILY Qty: 30 0RF doxycycline hyclate 100 mg capsule 100 mg PO BID 6 Days Qty: 12 0RF Print Language: Icelandic
[2024-06-24 15:59] VITALS: BP 134/78; PULSE 86; RESP 24; TEMP 36.9; O2SAT 91; BMI 46.3
--- NOTE | 2024-06-24 16:11 | ECG_ITS ---
Test Reason : SOB Blood Pressure : / mmHG Vent. Rate : 085 BPM Atrial Rate : 085 BPM P-R Int : 146 ms QRS Dur : 074 ms QT Int : 386 ms P-R-T Axes : 022 028 029 degrees QTc Int : 459 ms Normal sinus rhythm Normal ECG When compared with ECG of 17-JUN-2024 22:51, No significant change was found Referred By: Oswaldo Hollis Electronically Signed By:KEMAR BADILLO
[2024-06-24 16:32] VITALS: PULSE 90; RESP 22; O2SAT 95
[2024-06-24] MEDS: Albuterol Sulfate 2.5 MG, Albuterol/Iprat 2.5/0.5MG 3 ML 3 ML INHALE (16:32)
[2024-06-24 16:58] LABS: MANUAL DIFF FLAG NO
[2024-06-24 17:03] LABS: VBG HCO3 29 mmol/L (22-26); VBG pCO2 41 mmHg; VBG pH 7.45 (7.32-7.43); VBG pO2 147 mmHg
[2024-06-24 17:04] LABS: Venous Blood Gas Refer to POC result
[2024-06-24 17:05] LABS: Basophils Absolute Auto 0.1 X10*3/uL (0.0-0.2); Basophils Percent Auto 0.9 % (0-2); Eosinophils Absolute Auto 0.2 X10*3/uL (0.0-0.4); Eosinophils Percent Auto 1.8 % (0-4); Hematocrit 52.6 % (37.0-47.0); Hemoglobin 15.8 g/dl (12.0-16.0); Imm Gran Abs Auto 0.03 X10*3/uL (0.00-0.03); Imm Gran Pct Auto 0.4 % (0.0-0.4); Lymphocytes Absolute Auto 2.3 X10*3/uL (1.2-4.9); Lymphocytes Percent Auto 26.9 % (20-40); Mean Corpuscular Hemoglobin 30.1 pg (27.0-33.0); Mean Corpuscular Volume 100.2 fL (80.0-98.0); Mean Platelet Volume 10.5 fL (9.4-12.3); Monocytes Absolute Auto 0.5 X10*3/uL (0.1-1.2); Monocytes Percent Auto 5.6 % (2-11); Neutrophils Absolute Auto 5.5 x10*3/uL (2.0-8.3); Neutrophils Percent Auto 64.4 % (45-73); Platelet Count 181 X10*3/uL (160-400); Red Blood Count 5.25 X10*6/uL (4.20-5.50); Red Cell Distribution Width 14.2 % (11.0-16.0); White Blood Count 8.5 X10*3/uL (4.8-10.8)
[2024-06-24] MEDS: methylPREDNISolone Sod Succ 125 MG/2 ML VIAL IVPUSH (17:18)
[2024-06-24 17:39] LABS: Lactic Acid 1.1 mmol/L (0.5-2.0)
[2024-06-24 17:43] LABS: B Type Natriuretic Peptide 34 pg/mL (<100)
[2024-06-24 17:52] LABS: Influenza A PCR NEGATIVE (Negative); Influenza B PCR NEGATIVE (Negative); Resp Syncy Virus RNA Qual PCR NEGATIVE (Negative); SARS COV2 PCR INHOUSE NEGATIVE (Negative)
[2024-06-24 17:57] LABS: Alanine Aminotransferase 16 U/L (0-31); Albumin Level 4.3 g/dL (3.5-5.0); Alkaline Phosphatase 60 U/L (39-117); Anion Gap 11 (12-20); Aspartate Amino Transferase 12 U/L (5-31); Bilirubin Total 0.2 mg/dL (0.0-1.0); Blood Urea Nitrogen 8 mg/dL (9-16); Calcium 10.3 mg/dL (8.4-10.2); Carbon Dioxide 27 mmol/L (22-29); Chloride 106 mmol/L (96-108); Creatinine Clr Calc Pharmacy 130.3; Estimated Glomerular Filt Rate > 60; Ethanol < 10 mg/dL; Glucose Random 101 mg/dL (60-115); Lipase 22 U/L (8-78); Magnesium 2.1 mg/dL (1.6-2.6); Potassium 4.4 mmol/L (3.3-5.1); Sodium 140 mmol/L (135-145)
[2024-06-24 19:47] LABS: Troponin-I High Sensitivity < 2.7 ng/L (<3.5-17.0)
[2024-06-24 20:20] VITALS: BP 145/78; PULSE 84; RESP 21; TEMP 37.1; O2SAT 90
[2024-06-24 20:22] VITALS: O2SAT 90
--- NOTE | 2024-06-24 20:42 | MHC.EDTECH ---
This tech attempted to draw blood, pt calling allison rao and count refusing bloodwork. Security called. Did not show up.
[2024-06-24 22:22] VITALS: PULSE 83; RESP 19; O2SAT 88
[2024-06-25] VITALS (9 sets, daily range): BP systolic 120–154; BP diastolic 71–94; PULSE 74–91; RESP 16–22; TEMP 36.2–36.8; O2SAT 88–98
[2024-06-25] MEDS: predniSONE 20 MG TABLET 60 MG PO (03:59)
--- NOTE | 2024-06-25 08:56 | PC.NURSE ---
Pt reports I feel like shit, I don't feel any better.
== END 2024-06-25 10:36 | disposition home or self-care (01) ==
PROVIDERS: Emergency Provider Emergency Medicine Emergency Medical Services
DX: J44.1 Chronic obstructive pulmonary disease with (acute) exacerbation (principal); G47.33 Obstructive sleep apnea (adult) (pediatric); R06.02 Shortness of breath; R09.02 Hypoxemia; M25.562 Pain in left knee; Z99.81 Dependence on supplemental oxygen; Z79.899 Other long term (current) drug therapy; Z03.818 Encounter for observation for suspected exposure to other biological agents ruled out
CPT/HCPCS: 0241U; 36415; 71045; 73564; 80053; 80307; 82803; 83605; 83690; 83735; 83880; 84484; 85025; 93005; 94640; 96374; 96375; 99285; J2919

== ENCOUNTER 2024-07-04 17:22 | Inpatient (IN) | payer MEDICAID, OTHER, SELFPAY ==
[2024-07-04 17:39] VITALS: BP 110/70; PULSE 98; O2SAT 90
[2024-07-04 17:45] VITALS: BP 117/58; PULSE 91; RESP 20; TEMP 36.4; O2SAT 94; BMI 45.5
[2024-07-04 19:01] LABS: Amphetamine Screen Urine Not Detected (Not Detect); Barbiturates, Urine Not Detected (Not Detect); Basophils Absolute Auto 0.1 X10*3/uL (0.0-0.2); Basophils Percent Auto 1.1 % (0-2); Benzodiazepines Screen Urine Not Detected (Not Detect); Buprenorphine Scr Not Detected (Not Detect); Cannabinoid Screen Urine Not Detected (Not Detect); Cocaine Screen Urine Not Detected (Not Detect); Eosinophils Absolute Auto 0.2 X10*3/uL (0.0-0.4); Eosinophils Percent Auto 1.5 % (0-4); Fentanyl, urine Not Detected (Not Detect); Hematocrit 50.2 % (37.0-47.0); Hemoglobin 15.7 g/dl (12.0-16.0); Imm Gran Abs Auto 0.07 X10*3/uL (0.00-0.03); Imm Gran Pct Auto 0.7 % (0.0-0.4); Lymphocytes Absolute Auto 2.9 X10*3/uL (1.2-4.9); Lymphocytes Percent Auto 29.4 % (20-40); MANUAL DIFF FLAG SCAN; Mean Corpuscular HGB Conc 31.3 g/dl (31.0-35.0); Mean Corpuscular Hemoglobin 30.7 pg (27.0-33.0); Mean Platelet Volume 10.2 fL (9.4-12.3); Methadone Screen, Urine Not Detected (Not Detect); Monocytes Absolute Auto 0.6 X10*3/uL (0.1-1.2); Monocytes Percent Auto 6.5 % (2-11); NRBC Pct Auto 0.3 /100WBC (0.0-0.2); Neutrophils Percent Auto 60.8 % (45-73); Opiate Screen Urine Not Detected (Not Detect); Oxycodone Screen Urine Not Detected (Not Detect); PLT CLUMP 1; Phencyclidine Screen Urine Not Detected (Not Detect); Platelet Count 239 X10*3/uL (160-400); Red Blood Count 5.12 X10*6/uL (4.20-5.50); Red Cell Distribution Width 14.3 % (11.0-16.0); SCAN SMEAR FLAG 1; White Blood Count 9.9 X10*3/uL (4.8-10.8)
[2024-07-04 19:12] LABS: Alanine Aminotransferase 15 U/L (0-31); Albumin Level 3.9 g/dL (3.5-5.0); Alkaline Phosphatase 58 U/L (39-117); Anion Gap 13 (12-20); Aspartate Amino Transferase 20 U/L (5-31); Bilirubin Total 0.2 mg/dL (0.0-1.0); Blood Urea Nitrogen 12 mg/dL (9-16); Calcium 9.4 mg/dL (8.4-10.2); Carbon Dioxide 28 mmol/L (22-29); Chloride 104 mmol/L (96-108); Creatinine Clr Calc Pharmacy 117.2; Estimated Glomerular Filt Rate > 60; Ethanol < 10 mg/dL; Glucose Random 113 mg/dL (60-115); Magnesium 2.3 mg/dL (1.6-2.6); Potassium 4.8 mmol/L (3.3-5.1); Sodium 140 mmol/L (135-145)
[2024-07-04 19:18] LABS: SLIDE REVIEW VERIFIED
[2024-07-04 19:33] LABS: TSH reflex Free T4 0.97 uIU/mL (0.32-4.0)
--- NOTE | 2024-07-04 23:07 | PC.NURSE ---
Fatmata Wilcox (care team) to bedside to speak with patient. Pt refusing to wake up to talk to Fatmata or this RN. Vitals stable, oxygen continues to flow via nasal cannula at 3LPM. VBG drawn and sent for analysis. Pt responsive and speaking to this RN during lab draw. Awaiting results. Plan to likely admit to [facility] pending evaluation with care team/psych. Pt reported SI with plan to overdose on medications at home, which she has done in the past. Pt is known to this RN and to [facility]. Sitter remains at bedside.
[2024-07-04 23:08] LABS: VBG Base Excess 6.5 mmol/L; VBG HCO3 35 mmol/L (22-26); VBG pCO2 73 mmHg; VBG pH 7.29 (7.32-7.43); VBG pO2 66 mmHg
[2024-07-04 23:18] LABS: Venous Blood Gas Refer to POC result
--- NOTE | 2024-07-04 23:26 | PC.NURSE ---
Pt to be placed on CPAP for sleep.
[2024-07-04 23:54] VITALS: PULSE 91; RESP 20; O2SAT 93
--- NOTE | 2024-07-05 00:08 | ED_ITS ---
HPI - Psych General Chief Complaint: Psychiatric Symptoms Stated Complaint: SI Time Seen by Provider: 07/04/24 17:35 Source: patient Limitations: no limitations History of Present Illness ED Provider: Rosa moon PA-C HPI Narrative: 54-year-old female with extensive psychiatric history including borderline personality disorder, intermittent explosive disorder, PTSD, bipolar, depression, prior suicide attempts, morbid obesity, asthma, COPD on baseline 3 L nasal cannula, as well as other numerous comorbidities presents with SI. Patient states she has had numerous losses in her family, the most recent being last week. Patient also states she is having increasing psychosocial stressors involving her finances. Patient states she has a plan to ?overdose on all her pills at home?. The patient denies use of alcohol or illicit substances. Related Data Home Medications ?Medication ?Instructions ?Recorded ?Confirmed lithium carbonate 450 mg 450 mg PO TID 05/14/23 06/17/24 tablet,extended release cyanocobalamin (vitamin B-12) 1,000 mcg PO DAILY 06/11/23 06/17/24 1,000 mcg tablet (Vitamin B-12) ipratropium 0.5 mg-albuterol 3 mg 3 ml inhalation RQ6H PRN Shortness 06/11/23 06/17/24 (2.5 mg base)/3 mL nebulization Of Breath Or Wheezing soln cetirizine 10 mg tablet 10 mg PO DAILY PRN Allergy Symptoms 12/19/23 06/17/24 melatonin 3 mg tablet 3 mg PO BEDTIME 12/19/23 06/17/24 cholecalciferol (vitamin D3) 25 25 mcg PO DAILY 02/20/24 06/17/24 mcg (1,000 unit) tablet (Vitamin D3) ferrous sulfate 325 mg (65 mg 325 mg PO DAILY 05/10/24 06/17/24 iron) tablet fluticasone propionate 115 2 puff inhalation BID PRN 05/10/24 06/17/24 mcg-salmeterol 21 mcg/actuation Shortness Of Breath Or Wheezing HFA inhaler (Advair HFA) pantoprazole 20 mg tablet,delayed 40 mg PO DAILY@0630 05/10/24 06/17/24 release albuterol sulfate 2.5 mg/3 mL 2.5 mg inhalation Q4-6H PRN 06/05/24 06/17/24 (0.083 %) solution for nebulization Shortness Of Breath Or Wheezing gabapentin 400 mg capsule 400 mg PO TID PRN Pain 06/05/24 06/17/24 guaifenesin 100 mg/5 mL oral liquid 200 mg PO Q4-6H PRN Cough 06/05/24 06/17/24 tiotropium bromide 1.25 2 puff inhalation DAILY 06/05/24 06/17/24 mcg/actuation mist for inhalation (Spiriva Respimat) Previous Rx's ?Medication ?Instructions ?Recorded clonidine HCl 0.2 mg tablet 0.2 mg PO BEDTIME #30 tabs 03/22/23 olanzapine 10 mg tablet 10 mg PO BEDTIME #30 tabs 03/22/23 ropinirole 1 mg tablet 1 mg PO BEDTIME #30 tabs 03/22/23 apixaban 5 mg tablet (Eliquis) 5 mg PO BID #60 tabs 05/12/24 nicotine 21 mg/24 hr daily 21 mg transdermal DAILY #30 ea 06/07/24 transdermal patch doxycycline hyclate 100 mg capsule 100 mg PO BID 6 days #12 caps 06/19/24 prednisone 20 mg tablet 60 mg (3 x 20 mg) PO DAILY 5 days 06/25/24 #15 tabs Allergies Allergy/AdvReac Type Severity Reaction Status Date / Time aspirin Allergy Mild Anaphylaxis Verified 07/04/24 18:02 ampicillin Allergy Rash Verified 07/04/24 18:02 enoxaparin [From Lovenox] Allergy Anaphylaxis Verified 07/04/24 18:02 Penicillins Allergy Anaphylaxis Verified 07/04/24 18:02 latex AdvReac Rash Verified 07/04/24 18:02 Latex, Natural Rubber AdvReac Rash Verified 07/04/24 18:02 seafood AdvReac Anaphylaxis Verified 07/04/24 18:02 Sulfa (Sulfonamide AdvReac Hives Verified 07/04/24 18:02 Antibiotics) Review of Systems 2 Review of Systems: Yes all other systems are reviewed and are negative Constitutional: Constitutional: Denies fatigue and Denies fever(s) Cardiovascular: Cardiovascular: Denies chest pain and Denies dyspnea Respiratory: Respiratory: Denies dyspnea Gastrointestinal: Gastrointestinal: Denies vomiting Endocrine: Endocrine: Denies fatigue [facility] Past Medical History Attestation statement: The following information was validated with the patient. Medical History FABIOLA (obstructive sleep apnea) Asthma Morbid obesity Intentional overdose Acute bronchospasm Bipolar I disorder with depression Overdose on Tylenol Suicide attempt Asthma COPD (chronic obstructive pulmonary disease) Chronic lung disease Neoplasm of parotid gland Depression 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 Drug abuse Bipolar I disorder Post traumatic stress disorder (PTSD) Tobacco use disorder Borderline personality disorder Intermittent explosive disorder Asthma exacerbation in COPD Herpes Tobacco use Bipolar disorder COPD (chronic obstructive pulmonary disease) Surgical History History of ankle surgery History of back surgery Hx of cholecystectomy History of appendectomy Family History Family History Mother COPD (chronic obstructive pulmonary disease) Social History Social History Household Members: None Household Members Other:: So Housing: Apartment Housing Other:: Sleeps on the couch at [facility] house Do you presently have visiting nurse or other home services: Yes (visiting RN) Unable to assess alcohol history related to: Unknown Alcohol intake: former Comment: Sitter in room Patient Tobacco Use Status: Current everyday Tobacco user Tobacco use type: Cigarette Cigarette Packs Per Day: 1 Cigarettes Per Day: 20.0 Years Smoked: 20 e-Cigarette/Vaping Use: Currently Using Second Hand Smoke Exposure: No Substance Use Type: Crack/Cocaine Advance Directives: Yes Advance Directives on File: Yes Advance Directives Date on File: 06/17/22 service: No Current occupational status: unemployed and disabled Sexual orientation: Straight/Heterosexual Physical Exam 2 Vital Signs: Vital Signs: Last Vital Signs Temp 97.6 F 07/04/24 17:45 Pulse 91 07/04/24 17:45 Resp 20 07/04/24 23:54 BP 117/58 L 07/04/24 17:45 Pulse Ox 94 07/04/24 17:45 O2 Del Method Nasal Cannula 07/04/24 17:45 Oxygen Flow Rate 3 07/04/24 17:45 BMI result Body Mass Index 45.5 Const: Other: Awake, appears older than stated age Orientation/consciousness: patient oriented x3 Resp: Other: Nonlabored respiration Cardio: Other: Normal peripheral perfusion Skin: Other: Warm dry no rash Neuro: General: patient oriented x3, gait normal, no focal motor deficits and CN's II-XI intact bilaterally Psych: Other: Currently cooperative in the emergency department, SI Course Reevaluation(s) Reevaluation #1: I spoke with the behavioral health team, the patient was assessed overnight, however given her somnolence in the setting of sleeping, they feel most comfortable with her being reassess in the morning to make a plan, she may be a bed search. Medical Decision Making Medical Decision Making MDM Narrative: 54-year-old female with extensive psychiatric history including borderline personality disorder, intermittent explosive disorder, PTSD, bipolar, depression, prior suicide attempts, morbid obesity, asthma, COPD on baseline 3 L nasal cannula, as well as other numerous comorbidities presents with SI. Patient states she has had numerous losses in her family, the most recent being last week. Patient also states she is having increasing psychosocial stressors involving her finances. Patient states she has a plan to ?overdose on all her pills at home?. The patient denies use of alcohol or illicit substances. Problem: Extensive psychiatric history, COPD, asthma, obesity History: Per patient I have considered the following differential diagnoses: SI, HI, decompensated psychiatric illness, drug/alcohol intoxication Plan: Patient will be referred, she is high risk, she has had attempts in the past, she has also well known to our care team. We will be screening basic labs, serum ethanol and a U tox I have independently reviewed the following tests: Labs: No leukocytosis, not anemic, no electrolyte abnormality, serum ethanol negative U tox negative he H 7.29, CO2 73, O2 66, bicarb 35, oxygen saturation 94 The patient seemed more somnolent with sleeping, she is supposed to use CPAP at night, we will order now. A VBG was obtained. She has a chronic retainer, she is at her baseline mentation for me compared to when I interviewed her upon her arrival. Lab Data 07/04/24 18:43 07/04/24 18:43 Labs: Lab Results 07/04/24 07/04/24 Range/Units 18:43 23:03 WBC 9.9 (4.8-10.8) X10*3/uL RBC 5.12 (4.20-5.50) X10*6/uL Hgb 15.7 (12.0-16.0) g/dl Hct 50.2 H (37.0-47.0) % MCV 98.0 (80.0-98.0) fL MCH 30.7 (27.0-33.0) pg MCHC 31.3 (31.0-35.0) g/dl RDW 14.3 (11.0-16.0) % Plt Count 239 D (160-400) X10*3/uL MPV 10.2 (9.4-12.3) fL Immature Gran % (Auto) 0.7 H (0.0-0.4) % Neut % (Auto) 60.8 (45-73) % Lymph % (Auto) 29.4 (20-40) % [place] % (Auto) 6.5 (2-11) % Eos % (Auto) 1.5 (0-4) % Baso % (Auto) 1.1 (0-2) % Lymph # (Auto) 2.9 (1.2-4.9) X10*3/uL [place] # (Auto) 0.6 (0.1-1.2) X10*3/uL Eos # (Auto) 0.2 (0.0-0.4) X10*3/uL Baso # (Auto) 0.1 (0.0-0.2) X10*3/uL Abs Immat Gran (auto) 0.07 H (0.00-0.03) X10*3/uL Absolute Neuts (auto) 6.0 (2.0-8.3) x10*3/uL Absolute Nucleated RBC 0.030 H (0.0-0.012) X10*3/uL Nucleated RBC % (auto) 0.3 H (0.0-0.2) /100WBC Smear Tech's Comments VERIFIED VBG pH 7.29 L (7.32-7.43) VBG pCO2 73 mmHg VBG pO2 66 mmHg VBG HCO3 35 H (22-26) mmol/L VBG O2 Saturation 94.0 % VBG Base Excess 6.5 mmol/L Sodium 140 (135-145) mmol/L Potassium 4.8 (3.3-5.1) mmol/L Chloride 104 (96-108) mmol/L Carbon Dioxide 28 (22-29) mmol/L Anion Gap 13 (12-20) BUN 12 (9-16) mg/dL Creatinine 0.76 (0.5-1.4) mg/dL Estim Creat Clear Calc 117.2 Estimated GFR > 60 Random Glucose 113 (60-115) mg/dL Calcium 9.4 D (8.4-10.2) mg/dL Magnesium 2.3 (1.6-2.6) mg/dL Total Bilirubin 0.2 (0.0-1.0) mg/dL AST 20 (5-31) U/L ALT 15 (0-31) U/L Alkaline Phosphatase 58 (39-117) U/L Total Protein 7.0 (6.5-8.0) g/dL Albumin 3.9 (3.5-5.0) g/dL TSH 0.97 (0.32-4.0) uIU/mL Urine Opiates Screen Not Detected (Not Detect) Ur Buprenorphine Scrn Not Detected (Not Detect) ng/mL Ur Oxycodone Screen Not Detected (Not Detect) ng/mL Urine Methadone Screen Not Detected (Not Detect) ng/mL Urine Fentanyl Screen Not Detected (Not Detect) Ur Barbiturates Screen Not Detected (Not Detect) Ur Phencyclidine Scrn Not Detected (Not Detect) Ur Amphetamines Screen Not Detected (Not Detect) U Benzodiazepines Scrn Not Detected (Not Detect) Urine Cocaine Screen Not Detected (Not Detect) U Marijuana (THC) Screen Not Detected (Not Detect) Ethyl Alcohol < 10 mg/dL Discharge Plan Discharge Clinical Impression: Suicide ideation Patient Disposition: Still a Patient Prescriptions: No Action ropinirole 1 mg Tablet 1 mg PO BEDTIME Qty: 30 0RF olanzapine 10 mg Tablet 10 mg PO BEDTIME Qty: 30 0RF clonidine HCl 0.2 mg Tablet 0.2 mg PO BEDTIME Qty: 30 0RF Protocol: Hold for SBP< HOLD for SBP < : 90 cetirizine 10 mg Tablet 10 mg PO DAILY PRN (Reason: Allergy Symptoms) melatonin 3 mg Tablet 3 mg PO BEDTIME cholecalciferol (vitamin D3) [Vitamin D3] 25 mcg (1,000 unit) tablet 25 mcg PO DAILY ferrous sulfate 325 mg (65 mg iron) Tablet 325 mg PO DAILY fluticasone propion-salmeterol [Advair HFA] 115-21 mcg/actuation Hfa Aerosol Inhaler 2 puff INHALATION BID PRN (Reason: Shortness Of Breath Or Wheezing) pantoprazole 20 mg Tablet,Delayed Release (Dr/Ec) 40 mg PO DAILY@0630 Eliquis 5 mg Tablet 5 mg PO BID Qty: 60 0RF lithium carbonate 450 mg tablet extended release 450 mg PO TID cyanocobalamin (vitamin B-12) [Vitamin B-12] 1,000 mcg tablet 1,000 mcg PO DAILY ipratropium-albuterol 0.5 mg-3 mg(2.5 mg base)/3 mL solution for nebulization 3 ml inhalation RQ6H PRN (Reason: Shortness Of Breath Or Wheezing) albuterol sulfate 2.5 mg /3 mL (0.083 %) Solution For Nebulization 2.5 mg INHALATION Q4-6H PRN (Reason: Shortness Of Breath Or Wheezing) gabapentin 400 mg Capsule 400 mg PO TID PRN (Reason: Pain) Spiriva Respimat 1.25 mcg/actuation Mist 2 puff INHALATION DAILY guaifenesin 100 mg/5 mL Liquid 200 mg PO Q4-6H PRN (Reason: Cough) nicotine 21 mg/24 hr Patch 24 Hour 21 mg transdermal DAILY Qty: 30 0RF doxycycline hyclate 100 mg capsule 100 mg PO BID 6 Days Qty: 12 0RF prednisone 20 mg tablet 60 mg PO DAILY 5 Days Qty: 15 0RF Interventions: Hopkins-Suicide Risk Severity Scale Last Done: 07/04/24 18:02 Print Language: Hungarian
--- NOTE | 2024-07-05 02:46 | PC.NURSE ---
86% on cpap - notified MD and RT. per RT increase O2 to 6LPM. now 88%. per RT pt should be 88-90% while on cpap.
[2024-07-05 03:05] VITALS: RESP 20; O2SAT 91
[2024-07-05] MEDS: Acetaminophen 325 MG TABLET 650 MG PO (08:07)
--- NOTE | 2024-07-05 08:09 | PC.NURSE ---
Care Team at bedside. Pt has been calm, cooperative, upt o BR. eating and complains of headache. medicated with tylenol. NAD. sitter at bedside.
[2024-07-05 08:34] VITALS: BP 102/60; PULSE 85; RESP 18; TEMP 37.2; O2SAT 95
--- NOTE | 2024-07-05 08:35 | PC.NURSE ---
pt has difficulty swallowing water. coughing and making gurgling sounds. states this does not happen with any other beverage. only water. Appears to have fungal infection in mouth.
--- NOTE | 2024-07-05 08:56 | ECG_ITS ---
Test Reason : admission Blood Pressure : / mmHG Vent. Rate : 078 BPM Atrial Rate : 078 BPM P-R Int : 146 ms QRS Dur : 078 ms QT Int : 384 ms P-R-T Axes : 035 033 034 degrees QTc Int : 437 ms Normal sinus rhythm Normal ECG When compared with ECG of 24-JUN-2024 17:08, No significant change was found Referred By: Mary Beth Cisse Electronically Signed By:KEMAR BADILLO
[2024-07-05 10:30] LABS: Venous Blood Gas Refer to POC result
[2024-07-05 10:31] LABS: VBG Base Excess 5.1 mmol/L; VBG HCO3 32 mmol/L (22-26); VBG pCO2 57 mmHg; VBG pH 7.36 (7.32-7.43); VBG pO2 73 mmHg
[2024-07-05] MEDS: Doxycycline Monohydrate 100 MG CAPSULE PO ×2 (11:15→21:26)
[2024-07-05] MEDS: Apixaban 5 MG TABLET PO ×2 (11:15→21:27)
[2024-07-05] MEDS: Cyanocobalamin (Vitamin B-12) 1,000 MCG TABLET 1000 MCG PO (11:15)
[2024-07-05] MEDS: Cholecalciferol (Vitamin D3) 25 MCG TABLET PO (11:15)
[2024-07-05] MEDS: Lithium Carbonate ER 450 MG TABLET.ER PO ×3 (11:15→21:26)
[2024-07-05] MEDS: Nicotine 21 MG PATCH.TD24 TRANSDERMA (11:15)
--- NOTE | 2024-07-05 11:25 | PC.NURSE ---
ambulatory to BR without O2. very SOB at return to bed. remained 1:1 during BR.
[2024-07-05 11:37] LABS: Appearance Urine Cloudy; Color Urine Yellow; Glucose Urine UA Negative (Negative); Leukocyte Esterase Urine Large (3+) (Negative); Nitrite Urine Negative (Negative); PH 5.5 (5.0-9.0); Specific Gravity - Urine 1.015 (1.005-1.025); UMIC TRIGGER UACC YES; Urine Blood Negative (Negative); Urine Ketones Negative (Negative); Urine Protein Negative (Neg-Trace)
[2024-07-05 12:01] LABS: Bacteria Urine 2+ (None Seen); Hyaline Casts Urine 0-2 /LPF (0-2); RBC Urine 0-2 /HPF (0-2); UACC Culture Trigger YES; WBC Urine >50 /HPF (0-5)
--- NOTE | 2024-07-05 12:58 | PHA.MEDREC ---
Pharmacy Consult ? Medication Reconciliation Pharmacy has REVIEWED the medication reconciliation COMPLETED BY NURSING. Pt states she takes doxycycline chronically for abscesses
[2024-07-05 14:10] VITALS: BP 143/75; PULSE 83; RESP 18; TEMP 36.3; O2SAT 94
[2024-07-05 16:15] VITALS: BMI 45.3
--- NOTE | 2024-07-05 17:03 | PC.ADMIT ---
Bhavana was admitted to [facility] at 1400 from the ED on a CV for treatment of depression and SI. Per crisis assessment pt had reported increased hopelessness and suicidal ideation with plan to OD on medications from her lock box following the sudden of a family member. Pt has an extensive trauma history and has many chronic health concerns and previous hospitalizations. Pt has a restraint history while hospitalized but not during her last admission on [facility]. During admission process, Pt was alert and oriented X 4. She presents with depressed mood and affect but is able to engage in humor and is calm, cooperative. Bhavana currently denies SI and is help-seeking. She reports that prior to being admitted, she had not been taking all of her medications consistently; and hopes to have her medications evaluated and adjusted if necessary. Tox screen was negative. 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 Bhavana reports using a CPAP at home but did not bring it with her. She has a seated walker with her on the unit and is on 3L continuous O2 for her COPD. Skin check completed by RN's with findings of a left thigh boil and right arm cyst. Pt appears to have thrush as evidenced by white coating on her tongue. Pt on 1:1 observation.
[2024-07-05 20:00] VITALS: BP 152/80; PULSE 87; RESP 17; TEMP 36.8; O2SAT 94
[2024-07-05] MEDS: cloNIDine HCL 0.2 MG TABLET PO (21:26)
[2024-07-05] MEDS: traZODone HCL 50 MG TABLET PO (21:27)
[2024-07-05] MEDS: rOPINIRole HCL 1 MG TABLET PO (21:27)
[2024-07-05] MEDS: OLANZapine 10 MG TABLET PO (21:27)
[2024-07-05] MEDS: Melatonin 3 MG TABLET PO (21:27)
[2024-07-06] MEDS: Omeprazole 20 MG CAPSULE.DR PO (06:49)
[2024-07-06 08:00] LABS: Estimated Average Glucose 117 mg/dL; Hemoglobin A1C 149.4857 umol/L; Hemoglobin A1c % 5.7 % (<6.0)
[2024-07-06 08:34] VITALS: BP 125/76; PULSE 83; RESP 16; TEMP 36.8
[2024-07-06 08:36] LABS: Cholesterol 170 mg/dL (<200); HDL Cholesterol 47 mg/dL (>40); LDL Cholesterol Calculated 95 mg/dL (<100); Triglycerides 144 mg/dL (<150)
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
[2024-07-06 08:53] LABS: Free T4 (Free Thyroxine) 0.85 ng/dL (0.71-1.85); Thyroid Stimulating Hormone 1.01 uIU/mL (0.32-4.0)
[2024-07-06] MEDS: Apixaban 5 MG TABLET PO ×2 (09:17→21:28)
[2024-07-06] MEDS: Doxycycline Monohydrate 100 MG CAPSULE PO ×2 (09:17→21:28)
[2024-07-06] MEDS: Cholecalciferol (Vitamin D3) 25 MCG TABLET PO (09:17)
[2024-07-06] MEDS: Lithium Carbonate ER 450 MG TABLET.ER PO ×3 (09:17→21:28)
[2024-07-06] MEDS: Cyanocobalamin (Vitamin B-12) 1,000 MCG TABLET 1000 MCG PO (09:17)
[2024-07-06 09:18] LABS: Folate 4.9 ng/mL (> or = 4.0); Vitamin B12 1397 pg/mL (200-900)
[2024-07-06] MEDS: Nicotine 21 MG PATCH.TD24 TRANSDERMA (09:18)
[2024-07-06] MEDS: Tiotropium Bromide 2.5 mcg 1 PUFF/2.5 MCG MIST.INHAL 2 PUFF INHALE (09:49)
[2024-07-06] MEDS: Ferrous Sulfate 324 MG TABLET.DR PO (09:50)
[2024-07-06 10:08] VITALS: BP 130/85; PULSE 79; RESP 16; TEMP 36.4; O2SAT 94
--- NOTE | 2024-07-06 13:26 | MHC.SL.SWA ---
Speech Pathologist Impression: Risk of Aspiration Dysphasia Diet Status: No change to diet order. Recommend for patient to have total 1:1 supervision during meals to monitor tolerance and provide cues as needed for following strategies for safe eating/drinking: -small bites of food -upright 90 degree position when eating/drinking and for 30 minutes afterwards -chew food well -alternate bite of food with sip of liquid -do not take more bites until oral cavity is clear -minimize distractions during meals -avoid tough/hard foods, crumbly foods, dry foods -small, individual sips of liquid. Liquid Consistency and Strategies for Safe Swallow: Liquid Intake Recommendation: Thin Liquid Intake Strategies: Small Sips No Straws Solid Food Consistency: Dietary Recommendations: Regular Additional Modifications to Solid Foods: Patient is edentulous and observed to cough on cold foods/liquids. Patient reports she has no trouble with anything that's room temperature or warm, requests room temperature water when taking her pills. RN reported patient ate her breakfast without any difficulty. PARISH VISITOR discussed recommended strategies and aspiration precautions with patient: avoid the use of straws, take small individual sips, no chugging of liquid, take small bites, and chew food well. Recommend patient avoid foods which are overly tough or hard to chew. Oral Medication Intake: Whole with Liquid Please contact the pharmacy regarding appropriate crushable or liquid drug formulations that are available whenever modified delivery is recommended. Compensatory Strategies and Precautions to be Taken for Safe Swallow: Sitting Upright (90 deg) Double Swallow No Straw Small Bites and Sips Alternate Liquids/Solids Rate of Ingestion Change Avoid Specific Foods Supervision While Eating and Drinking for Safe Swallow: Total Supervision (1:1) Foods to Avoid: [place] hard, tough to chew foods Swallowing Recommended Treatments: Compens. Strategy Educat. Recommendation for Speech: Inpatient Speech Therapy Comment: PARISH VISITOR to f/u 1-2x to monitor tolerance and provide continued education RE: safe eating strategies and aspiration precautions Frequency/Duration: Date Range for Service Req: Timeline to reassess: Livestock Feeder Clinican/Clinical Fellow: No Supervisory Statement: I have reviewed and agree with the student/clinical fellow's documentation: N/A Speech Language Pathologist: Amrita Craig M.A., [facility]-PARISH VISITOR
[2024-07-06 15:55] VITALS: BP 113/69; PULSE 80; TEMP 36.6; O2SAT 95
[2024-07-06] MEDS: Nystatin Oral Susp 500,000 UNIT/5 ML ORAL.SUSP 400000 UNIT PO ×2 (18:56→21:28)
[2024-07-06 20:00] VITALS: BP 100/50; PULSE 80; RESP 16; TEMP 36.6; O2SAT 91
[2024-07-06] MEDS: Melatonin 3 MG TABLET PO (21:28)
[2024-07-06] MEDS: traZODone HCL 50 MG TABLET PO (21:28)
[2024-07-06] MEDS: cefuroxime axetiL 250 MG TABLET PO (21:28)
[2024-07-06] MEDS: rOPINIRole HCL 1 MG TABLET PO (21:28)
[2024-07-06] MEDS: OLANZapine 10 MG TABLET PO (21:28)
[2024-07-06] MEDS: cloNIDine HCL 0.2 MG TABLET PO (21:28)
[2024-07-07 08:00] VITALS: BP 113/61; PULSE 79; RESP 16; TEMP 36.9; O2SAT 92
--- NOTE | 2024-07-07 08:01 | P.PNPSI_ITS ---
Subjective Subjective Date of Service: 07/07/24 Reason For Visit: ptsd depression with si Subjective Notes: Conditional Voluntary Interim History: met with patient. Discussed with Nursing. Overall no management issues. One-to-one in place due to oxygen therapy. Attending groups. Sleeping well. Getting on well with peers. Endorse feeling depressed and anxious regarding stressors, primarily relocating. Reports feeling supported in the hospital and being able to focus on self and well-being and mood. No SI. No med concerns, with the exception of restarting gabapentin- (plan appears to be restart) Medication Compliance: Yes Side effects from medications: No Attending Groups: Yes Review of Systems Acute medical concerns: No Review of Systems Review of Systems Nothing acute Mental Status Exam Mental Status Exam Narrative: Pt is alert and oriented; behavior is cooperative, friendly and calm; walker and oxygne and 1:1 siter, is not in distress; dressed in casual attire with unkempt hair but adequate hygiene; mood is described as ok and affect congruent; eye contact appropriate; Speech is normal rate, volume and prosody and not pressured; no psychomotor agitation/retardation present; thought process is organized and goal directed; Thought content is on tx; otherwise pertinent to relevant topics and without any delusional content, paranoid ideations or grandiosity; denies any SI/HI. There is no evidence of perceptual disturbance. Patients insight and judgment appear intact. Diagnostics Vital Signs (24Hr): Vital Signs - 24 hr 07/06/24 08:34 07/06/24 10:08 07/06/24 15:55 Temperature 98.2 F 97.5 F 97.9 F Pulse Rate 83 79 80 Respiratory Rate 16 16 Blood Pressure 125/76 130/85 113/69 Pulse Oximetry 94 95 Oxygen Delivery Method Room Air Room Air Oxygen Flow Rate 07/06/24 20:00 Temperature 97.9 F Pulse Rate 80 Respiratory Rate 16 Blood Pressure 100/50 L Pulse Oximetry 91 L Oxygen Delivery Method Nasal Cannula Oxygen Flow Rate 3 BMI result Body Mass Index 45.3 Labs 07/04/24 18:43 07/04/24 18:43 Labs: Laboratory Results - last 48 hr 07/05/24 07/05/24 07/06/24 10:27 11:26 07:46 VBG pH 7.36 VBG pCO2 57 VBG pO2 73 VBG HCO3 32 H VBG O2 Saturation 96.0 VBG Base Excess 5.1 Estimat Average Glucose 117 Hemoglobin A1c % 5.7 Magnesium 2.0 Triglycerides 144 Cholesterol 170 LDL Cholesterol, Calc 95 HDL Cholesterol 47 Vitamin B12 1397 H Folate 4.9 TSH 1.01 Free T4 0.85 Urine Color Yellow Urine Appearance Cloudy Urine pH 5.5 Ur Specific [place] 1.015 Urine Protein Negative Urine Glucose (UA) Negative Urine Ketones Negative Urine Blood Negative Urine Nitrite Negative Ur Leukocyte Esterase Large (3+) H Urine RBC 0-2 Urine WBC >50 H Ur Squamous Epith Cells 11-20 Urine Bacteria 2+ Hyaline Casts 0-2 Medications Medications Current Medications Al Hydroxide/Mg Hydroxide (Magnesium Hydrox/Alum Hydrox 30 Ml Oral.Susp) 30 ml PO Q6H PRN PRN Reason: Heartburn/Nausea Albuterol Sulfate (Albuterol Sulfate (0.083%) 2.5 Mg/3 Ml Vial.Neb) 2.5 mg INHALE Q4H PRN PRN Reason: Shortness Of Breath Or Wheezing Albuterol/Ipratropium (Albuterol/Iprat 2.5/0.5mg 3 Ml Ampul.Neb) 3 ml INHALE RQ6H PRN PRN Reason: Shortness Of Breath Or Wheezing Apixaban (Apixaban 5 Mg Tablet) 5 mg PO BID [facility] Last Admin: 07/06/24 21:28 Dose: 5 mg Cefuroxime Axetil (Cefuroxime Axetil 250 Mg Tablet) 250 mg PO BID [facility] Stop: 07/13/24 10:09 Last Admin: 07/06/24 21:28 Dose: 250 mg Clonidine HCl (Clonidine Hcl 0.2 Mg Tablet) 0.2 mg PO BEDTIME [facility]; Protocol Last Admin: 07/06/24 21:28 Dose: 0.2 mg Cyanocobalamin (Cyanocobalamin (Vitamin B-12) 1,000 Mcg Tablet) 1,000 mcg PO DAILY [facility] Last Admin: 07/06/24 09:17 Dose: 1,000 mcg Doxycycline Monohydrate (Doxycycline Monohydrate 100 Mg Capsule) 100 mg PO BID [facility] Last Admin: 07/06/24 21:28 Dose: 100 mg Epinephrine (Epinephrine 1 Mg/Ml Vial) 0.2 mg IM DAILY PRN PRN Reason: anaphylaxis Ferrous Sulfate (Ferrous Sulfate 324 Mg Tablet.) 324 mg PO DAILY [facility] Last Admin: 07/06/24 09:50 Dose: 324 mg Fluticasone/Vilanterol (Fluticasone/Vilanterol 100/25 Blst.W.Dev) 1 puff INHALE DAILY PRN PRN Reason: Shortness Of Breath Or Wheezing Guaifenesin (Guaifenesin 100 Mg/5 Ml Liquid) 10 ml PO Q4H PRN PRN Reason: Cough [place] Carbonate ([place] Carbonate Er 450 Mg Tablet.Er) 450 mg PO TID [facility] Last Admin: 07/06/24 21:28 Dose: 450 mg Loratadine (Loratadine 10 Mg Tablet) 10 mg PO DAILY PRN PRN Reason: Allergy Symptoms Magnesium Hydroxide (Milk Of Magnesia 30 Ml Oral.Susp) 30 ml PO DAILY PRN PRN Reason: Constipation Melatonin (Melatonin 3 Mg Tablet) 3 mg PO BEDTIME [facility] Last Admin: 07/06/24 21:28 Dose: 3 mg Nicotine (Nicotine 21 Mg Patch.Td24) 21 mg TRANSDERMA DAILY [facility] Last Admin: 07/06/24 09:18 Dose: 21 mg Nicotine (Nicotine 21 Mg Patch.Td24) 21 mg TRANSDERMA DAILY PRN PRN Reason: nicotine cravings Nystatin (Nystatin Oral Susp 500,000 Unit/5 Ml Oral.Susp) 400,000 unit PO QID [facility]; Protocol Stop: 07/12/24 23:00 Last Admin: 07/06/24 21:28 Dose: 400,000 unit Olanzapine (Olanzapine 10 Mg Tablet) 10 mg PO BEDTIME [facility] Last Admin: 07/06/24 21:28 Dose: 10 mg Omeprazole (Omeprazole 20 Mg Capsule.Dr) 20 mg PO DAILY@0630 [facility] Last Admin: 07/06/24 06:49 Dose: 20 mg Ropinirole HCl (Ropinirole Hcl 1 Mg Tablet) 1 mg PO BEDTIME [facility] Last Admin: 07/06/24 21:28 Dose: 1 mg Tiotropium [place] (Tiotropium [place] 2.5 Mcg 1 Puff/2.5 Mcg Mist.Inhal) 2 puff INHALE RDAILY [facility] Last Admin: 07/06/24 09:49 Dose: 2 puff Trazodone HCl (Trazodone Hcl 50 Mg Tablet) 50 mg PO BEDTIME MRX1 PRN PRN Reason: Insomnia Last Admin: 07/06/24 21:28 Dose: 50 mg Vitamin D (Cholecalciferol (Vitamin D3) 25 Mcg Tablet) 25 mcg PO DAILY [facility] Last Admin: 07/06/24 09:17 Dose: 25 mcg Allergies Allergies Allergy/AdvReac Type Severity Reaction Status Date / Time aspirin Allergy Mild Anaphylaxis Verified 07/04/24 18:02 ampicillin Allergy Rash Verified 07/04/24 18:02 enoxaparin [From Lovenox] Allergy Anaphylaxis Verified 07/04/24 18:02 Penicillins Allergy Anaphylaxis Verified 07/04/24 18:02 latex AdvReac Rash Verified 07/04/24 18:02 Latex, Natural Rubber AdvReac Rash Verified 07/04/24 18:02 seafood AdvReac Anaphylaxis Verified 07/04/24 18:02 Sulfa (Sulfonamide AdvReac Hives Verified 07/04/24 18:02 Antibiotics) Assessment & Plan Assessment & Plan (1) Bipolar I disorder: Status: Chronic Code(s): F31.9 - Bipolar disorder, unspecified (2) Post traumatic stress disorder (PTSD): Status: Acute Code(s): F43.10 - Post-traumatic stress disorder, unspecified (3) COPD (chronic obstructive pulmonary disease): Status: Acute Code(s): J44.9 - Chronic obstructive pulmonary disease, unspecified (4) FABIOLA (obstructive sleep apnea): Status: Acute Code(s): G47.33 - Obstructive sleep apnea (adult) (pediatric) (5) UTI (urinary tract infection): Status: Acute Code(s): N39.0 - Urinary tract infection, site not specified Plan 54-year-old female with past medical history significant for pulmonary embolism on Eliquis, COPD, FABIOLA, on chronic 3L O2 nasal cannula, parotid gland neoplasm s/p surgical excision obesity, bipolar disorder, PTSD, borderline personality, substance abuse hx in remission, who presents for suicidal ideation in face of psychosocial stressors. Pt reports she's been feeling stressed as she is preparing to move; this past week a beloved relative which caused her overwhelming sorry and triggered urge to be ; also pt not sleeping, not eating much... She had thoughts to open up her medication lock box and overdose; instead she called 911. Denies any recent drug use and UDS negative. She reports being consistent with medication. Plan: cv 1:1 since on O2 nasal cannula treat for UTI; discussed with hospitalist PA and pharmacist who agree best option Ceftin continue home meds pt asked to restart Gabapentin 07/07: no changes- continue/restart gabapentin c/w home medications Reason for continued inpatient stay Substantial Risk for: rapid decompensation Time Spent With Patient Time: Total time managing care of this patient today ____ minutes.
[2024-07-07] MEDS: Tiotropium Bromide 2.5 mcg 1 PUFF/2.5 MCG MIST.INHAL 2 PUFF INHALE (08:28)
[2024-07-07] MEDS: Nystatin Oral Susp 500,000 UNIT/5 ML ORAL.SUSP 400000 UNIT PO ×4 (08:29→20:55)
[2024-07-07] MEDS: Lithium Carbonate ER 450 MG TABLET.ER PO ×3 (08:29→21:00)
[2024-07-07] MEDS: Omeprazole 20 MG CAPSULE.DR PO (08:29)
[2024-07-07] MEDS: Cyanocobalamin (Vitamin B-12) 1,000 MCG TABLET 1000 MCG PO (08:29)
[2024-07-07] MEDS: Apixaban 5 MG TABLET PO ×2 (08:29→20:55)
[2024-07-07] MEDS: Cholecalciferol (Vitamin D3) 25 MCG TABLET PO (08:30)
[2024-07-07] MEDS: Ferrous Sulfate 324 MG TABLET.DR PO (08:30)
[2024-07-07] MEDS: cefuroxime axetiL 250 MG TABLET PO ×2 (08:30→20:55)
[2024-07-07] MEDS: Doxycycline Monohydrate 100 MG CAPSULE PO ×2 (08:30→20:55)
[2024-07-07] MEDS: Nicotine 21 MG PATCH.TD24 TRANSDERMA (08:49)
[2024-07-07] MEDS: Gabapentin 400 MG CAPSULE PO ×2 (14:46→20:55)
[2024-07-07 15:00] VITALS: BP 115/70; PULSE 84; RESP 18; TEMP 37.3; O2SAT 94
[2024-07-07 20:00] VITALS: BP 103/63; PULSE 86; RESP 16; TEMP 36.8; O2SAT 92
[2024-07-07 20:55] VITALS: BP 102/63
[2024-07-07] MEDS: cloNIDine HCL 0.2 MG TABLET PO (20:55)
[2024-07-07] MEDS: rOPINIRole HCL 1 MG TABLET PO (20:55)
[2024-07-07] MEDS: OLANZapine 10 MG TABLET PO (20:55)
[2024-07-07] MEDS: Melatonin 3 MG TABLET PO (20:55)
[2024-07-07] MEDS: traZODone HCL 50 MG TABLET PO (20:55)
[2024-07-08] MEDS: Omeprazole 20 MG CAPSULE.DR PO (06:35)
[2024-07-08 08:00] VITALS: BP 98/54; PULSE 82; RESP 18; TEMP 36.7; O2SAT 90
--- NOTE | 2024-07-08 08:07 | P.PNPSI_ITS ---
Subjective Subjective Date of Service: 07/08/24 Reason For Visit: ptsd depression with si Interim History: met with patient. Discussed with Nursing. Overall no management issues. One-to-one in place due to oxygen therapy. Attending groups. Sleeping well. Getting on well with peers. Looking forward to discharge planning and hopeful for discharge tomorrow. Medication Compliance: Yes Side effects from medications: No Attending Groups: Yes Review of Systems Acute medical concerns: No Review of Systems Review of Systems Nothing acute Mental Status Exam Mental Status Exam Narrative: Pt is alert and oriented; behavior is cooperative, friendly and calm; walker and oxygne and 1:1 siter, is not in distress; dressed in casual attire with unkempt hair but adequate hygiene; mood is described as ok and affect congruent; eye contact appropriate; Speech is normal rate, volume and prosody and not pressured; no psychomotor agitation/retardation present; thought process is organized and goal directed; Thought content is on tx; otherwise pertinent to relevant topics and without any delusional content, paranoid ideations or grandiosity; denies any SI/HI. There is no evidence of perceptual disturbance. Patients insight and judgment appear intact. Diagnostics Vital Signs (24Hr): Vital Signs - 24 hr 07/07/24 15:00 07/07/24 20:00 07/07/24 20:55 Temperature 99.1 F 98.2 F Pulse Rate 84 86 Respiratory Rate 18 16 Blood Pressure 115/70 103/63 102/63 Pulse Oximetry 94 92 Oxygen Delivery Method Room Air Nasal Cannula Oxygen Flow Rate 3 BMI result Body Mass Index 45.3 Labs 07/04/24 18:43 07/04/24 18:43 Labs: Laboratory Results - last 48 hr 07/06/24 07:46 Magnesium 2.0 Triglycerides 144 Cholesterol 170 LDL Cholesterol, Calc 95 HDL Cholesterol 47 Vitamin B12 1397 H Folate 4.9 TSH 1.01 Free T4 0.85 Medications Medications Current Medications Al Hydroxide/Mg Hydroxide (Magnesium Hydrox/Alum Hydrox 30 Ml Oral.Susp) 30 ml PO Q6H PRN PRN Reason: Heartburn/Nausea Albuterol Sulfate (Albuterol Sulfate (0.083%) 2.5 Mg/3 Ml Vial.Neb) 2.5 mg INHALE Q4H PRN PRN Reason: Shortness Of Breath Or Wheezing Albuterol/Ipratropium (Albuterol/Iprat 2.5/0.5mg 3 Ml Ampul.Neb) 3 ml INHALE RQ6H PRN PRN Reason: Shortness Of Breath Or Wheezing Apixaban (Apixaban 5 Mg Tablet) 5 mg PO BID [facility] Last Admin: 07/07/24 20:55 Dose: 5 mg Cefuroxime Axetil (Cefuroxime Axetil 250 Mg Tablet) 250 mg PO BID [facility] Stop: 07/13/24 10:09 Last Admin: 07/07/24 20:55 Dose: 250 mg Clonidine HCl (Clonidine Hcl 0.2 Mg Tablet) 0.2 mg PO BEDTIME [facility]; Protocol Last Admin: 07/07/24 20:55 Dose: 0.2 mg Cyanocobalamin (Cyanocobalamin (Vitamin B-12) 1,000 Mcg Tablet) 1,000 mcg PO DAILY [facility] Last Admin: 07/07/24 08:29 Dose: 1,000 mcg Doxycycline Monohydrate (Doxycycline Monohydrate 100 Mg Capsule) 100 mg PO BID [facility] Last Admin: 07/07/24 20:55 Dose: 100 mg Epinephrine (Epinephrine 1 Mg/Ml Vial) 0.2 mg IM DAILY PRN PRN Reason: anaphylaxis Ferrous Sulfate (Ferrous Sulfate 324 Mg Tablet.Dr) 324 mg PO DAILY [facility] Last Admin: 07/07/24 08:30 Dose: 324 mg Fluticasone/Vilanterol (Fluticasone/Vilanterol 100/25 Blst.W.Dev) 1 puff INHALE DAILY PRN PRN Reason: Shortness Of Breath Or Wheezing Gabapentin (Gabapentin 400 Mg Capsule) 400 mg PO TID [facility] Last Admin: 07/07/24 20:55 Dose: 400 mg Guaifenesin (Guaifenesin 100 Mg/5 Ml Liquid) 10 ml PO Q4H PRN PRN Reason: Cough Tok Carbonate (Tok Carbonate Er 450 Mg Tablet.Er) 450 mg PO TID [facility] Last Admin: 07/07/24 21:00 Dose: 450 mg Loratadine (Loratadine 10 Mg Tablet) 10 mg PO DAILY PRN PRN Reason: Allergy Symptoms Magnesium Hydroxide (Milk Of Magnesia 30 Ml Oral.Susp) 30 ml PO DAILY PRN PRN Reason: Constipation Melatonin (Melatonin 3 Mg Tablet) 3 mg PO BEDTIME [facility] Last Admin: 07/07/24 20:55 Dose: 3 mg Nicotine (Nicotine 21 Mg Patch.Td24) 21 mg TRANSDERMA DAILY [facility] Last Admin: 07/07/24 08:49 Dose: 21 mg Nicotine (Nicotine 21 Mg Patch.Td24) 21 mg TRANSDERMA DAILY PRN PRN Reason: nicotine cravings Nystatin (Nystatin Oral Susp 500,000 Unit/5 Ml Oral.Susp) 400,000 unit PO QID [facility]; Protocol Stop: 07/12/24 23:00 Last Admin: 07/07/24 20:55 Dose: 400,000 unit Olanzapine (Olanzapine 10 Mg Tablet) 10 mg PO BEDTIME [facility] Last Admin: 07/07/24 20:55 Dose: 10 mg Omeprazole (Omeprazole 20 Mg Capsule.Dr) 20 mg PO DAILY@0630 [facility] Last Admin: 07/08/24 06:35 Dose: 20 mg Ropinirole HCl (Ropinirole Hcl 1 Mg Tablet) 1 mg PO BEDTIME [facility] Last Admin: 07/07/24 20:55 Dose: 1 mg Tiotropium [place] (Tiotropium [place] 2.5 Mcg 1 Puff/2.5 Mcg Mist.Inhal) 2 puff INHALE RDAILY [facility] Last Admin: 07/07/24 08:28 Dose: 2 puff Trazodone HCl (Trazodone Hcl 50 Mg Tablet) 50 mg PO BEDTIME MRX1 PRN PRN Reason: Insomnia Last Admin: 07/07/24 20:55 Dose: 50 mg Vitamin D (Cholecalciferol (Vitamin D3) 25 Mcg Tablet) 25 mcg PO DAILY [facility] Last Admin: 07/07/24 08:30 Dose: 25 mcg Allergies Allergies Allergy/AdvReac Type Severity Reaction Status Date / Time aspirin Allergy Mild Anaphylaxis Verified 07/04/24 18:02 ampicillin Allergy Rash Verified 07/04/24 18:02 enoxaparin [From Lovenox] Allergy Anaphylaxis Verified 07/04/24 18:02 Penicillins Allergy Anaphylaxis Verified 07/04/24 18:02 latex AdvReac Rash Verified 07/04/24 18:02 Latex, Natural Rubber AdvReac Rash Verified 07/04/24 18:02 seafood AdvReac Anaphylaxis Verified 07/04/24 18:02 Sulfa (Sulfonamide AdvReac Hives Verified 07/04/24 18:02 Antibiotics) Assessment & Plan Assessment & Plan (1) Bipolar I disorder: Status: Chronic Code(s): F31.9 - Bipolar disorder, unspecified (2) Post traumatic stress disorder (PTSD): Status: Acute Code(s): F43.10 - Post-traumatic stress disorder, unspecified (3) COPD (chronic obstructive pulmonary disease): Status: Acute Code(s): J44.9 - Chronic obstructive pulmonary disease, unspecified (4) FABIOLA (obstructive sleep apnea): Status: Acute Code(s): G47.33 - Obstructive sleep apnea (adult) (pediatric) (5) UTI (urinary tract infection): Status: Acute Code(s): N39.0 - Urinary tract infection, site not specified Plan 54-year-old female with past medical history significant for pulmonary embolism on Eliquis, COPD, FABIOLA, on chronic 3L O2 nasal cannula, parotid gland neoplasm s/p surgical excision obesity, bipolar disorder, PTSD, borderline personality, substance abuse hx in remission, who presents for suicidal ideation in face of psychosocial stressors. Pt reports she's been feeling stressed as she is preparing to move; this past week a beloved relative which caused her overwhelming sorry and triggered urge to be ; also pt not sleeping, not eating much... She had thoughts to open up her medication lock box and overdose; instead she called 911. Denies any recent drug use and UDS negative. She reports being consistent with medication. Plan: cv 1:1 since on O2 nasal cannula treat for UTI; discussed with hospitalist PA and pharmacist who agree best option Ceftin continue home meds pt asked to restart Gabapentin 07/07: no changes- continue/restart gabapentin c/w home medications 07/08/2024: No changes Reason for continued inpatient stay Substantial Risk for: rapid decompensation Time Spent With Patient Time: Total time managing care of this patient today ____ minutes.
[2024-07-08] MEDS: Tiotropium Bromide 2.5 mcg 1 PUFF/2.5 MCG MIST.INHAL 2 PUFF INHALE (08:34)
[2024-07-08] MEDS: Lithium Carbonate ER 450 MG TABLET.ER PO ×3 (08:35→20:43)
[2024-07-08] MEDS: Cyanocobalamin (Vitamin B-12) 1,000 MCG TABLET 1000 MCG PO (08:35)
[2024-07-08] MEDS: Ferrous Sulfate 324 MG TABLET.DR PO (08:35)
[2024-07-08] MEDS: Cholecalciferol (Vitamin D3) 25 MCG TABLET PO (08:35)
[2024-07-08] MEDS: Nicotine 21 MG PATCH.TD24 TRANSDERMA (08:35)
[2024-07-08] MEDS: Doxycycline Monohydrate 100 MG CAPSULE PO ×2 (08:35→20:43)
[2024-07-08] MEDS: Apixaban 5 MG TABLET PO ×2 (08:35→20:43)
[2024-07-08] MEDS: cefuroxime axetiL 250 MG TABLET PO ×2 (08:35→20:43)
[2024-07-08] MEDS: Gabapentin 400 MG CAPSULE PO ×3 (08:35→20:44)
[2024-07-08] MEDS: Nystatin Oral Susp 500,000 UNIT/5 ML ORAL.SUSP 400000 UNIT PO ×3 (08:56→17:41)
[2024-07-08 09:23] VITALS: O2SAT 93
[2024-07-08 20:00] VITALS: BP 117/58; PULSE 84; RESP 22; TEMP 36.6; O2SAT 96
[2024-07-08] MEDS: rOPINIRole HCL 1 MG TABLET PO (20:43)
[2024-07-08] MEDS: Melatonin 3 MG TABLET PO (20:44)
[2024-07-08] MEDS: OLANZapine 10 MG TABLET PO (20:44)
[2024-07-08] MEDS: cloNIDine HCL 0.2 MG TABLET PO (20:45)
[2024-07-09] MEDS: Omeprazole 20 MG CAPSULE.DR PO (06:25)
--- NOTE | 2024-07-09 07:26 | PC.NURSE ---
Pt reported shortness of breath to staff member, O2 92% on 3LNC. RR 24. Respiratory called at 0722 for nebulizer treatment
[2024-07-09 08:00] VITALS: BP 137/84; PULSE 96; RESP 18; TEMP 36.9; O2SAT 91
[2024-07-09] MEDS: Albuterol/Iprat 2.5/0.5MG 3 ML AMPUL.NEB INHALE (08:30)
[2024-07-09 08:33] VITALS: PULSE 84; RESP 22; O2SAT 94
[2024-07-09] MEDS: Tiotropium Bromide 2.5 mcg 1 PUFF/2.5 MCG MIST.INHAL 2 PUFF INHALE (08:49)
[2024-07-09] MEDS: Nystatin Oral Susp 500,000 UNIT/5 ML ORAL.SUSP 400000 UNIT PO (08:50)
[2024-07-09] MEDS: Gabapentin 400 MG CAPSULE PO (08:50)
[2024-07-09] MEDS: Doxycycline Monohydrate 100 MG CAPSULE PO (08:51)
[2024-07-09] MEDS: Cyanocobalamin (Vitamin B-12) 1,000 MCG TABLET 1000 MCG PO (08:51)
[2024-07-09] MEDS: cefuroxime axetiL 250 MG TABLET PO (08:51)
[2024-07-09] MEDS: Apixaban 5 MG TABLET PO (08:51)
[2024-07-09] MEDS: Cholecalciferol (Vitamin D3) 25 MCG TABLET PO (08:51)
[2024-07-09] MEDS: Lithium Carbonate ER 450 MG TABLET.ER PO (08:51)
[2024-07-09] MEDS: Ferrous Sulfate 324 MG TABLET.DR PO (08:51)
[2024-07-09] MEDS: Nicotine 21 MG PATCH.TD24 TRANSDERMA (09:14)
--- NOTE | 2024-07-09 10:10 | P.DS_ITS ---
DS: Providers Provider Date of Service: 07/09/24 Date of admission: 07/05/24 12:49 Date of discharge: 07/09/24 Primary care physician: Unknown Physician Attending physician on admission: Lamont Damon Attending physician on discharge: Lamont Damon DS: Diagnosis Discharge Diagnosis (1) Bipolar I disorder: Status: Chronic (2) Post traumatic stress disorder (PTSD): Status: Acute (3) COPD (chronic obstructive pulmonary disease): Status: Acute (4) FABIOLA (obstructive sleep apnea): Status: Acute (5) UTI (urinary tract infection): Status: Acute DS: Medications Discharge Medications Home Medications: Home Medications ?Medication ?Instructions ?Recorded ?Confirmed lithium carbonate 450 mg 450 mg PO TID 05/14/23 07/05/24 tablet,extended release cyanocobalamin (vitamin B-12) 1,000 mcg PO DAILY 06/11/23 07/05/24 1,000 mcg tablet (Vitamin B-12) ipratropium 0.5 mg-albuterol 3 mg 3 ml inhalation RQ6H PRN Shortness 06/11/23 07/05/24 (2.5 mg base)/3 mL nebulization Of Breath Or Wheezing soln cetirizine 10 mg tablet 10 mg PO DAILY PRN Allergy Symptoms 12/19/23 07/05/24 melatonin 3 mg tablet 3 mg PO BEDTIME 12/19/23 07/05/24 cholecalciferol (vitamin D3) 25 25 mcg PO DAILY 02/20/24 07/05/24 mcg (1,000 unit) tablet (Vitamin D3) ferrous sulfate 325 mg (65 mg 325 mg PO DAILY 05/10/24 07/05/24 iron) tablet fluticasone propionate 115 2 puff inhalation BID PRN 05/10/24 07/05/24 mcg-salmeterol 21 mcg/actuation Shortness Of Breath Or Wheezing HFA inhaler (Advair HFA) pantoprazole 20 mg tablet,delayed 40 mg PO DAILY@0630 05/10/24 07/05/24 release albuterol sulfate 2.5 mg/3 mL 2.5 mg inhalation Q4-6H PRN 06/05/24 07/05/24 (0.083 %) solution for nebulization Shortness Of Breath Or Wheezing gabapentin 400 mg capsule 400 mg PO TID PRN Pain 06/05/24 07/05/24 guaifenesin 100 mg/5 mL oral liquid 200 mg PO Q4-6H PRN Cough 06/05/24 07/05/24 tiotropium bromide 1.25 2 puff inhalation DAILY 06/05/24 07/05/24 mcg/actuation mist for inhalation (Spiriva Respimat) gabapentin 400 mg PO 3XD PRN Pain 07/05/24 07/05/24 Previous Rx's ?Medication ?Instructions ?Recorded clonidine HCl 0.2 mg tablet 0.2 mg PO BEDTIME #30 tabs 03/22/23 olanzapine 10 mg tablet 10 mg PO BEDTIME #30 tabs 03/22/23 ropinirole 1 mg tablet 1 mg PO BEDTIME #30 tabs 03/22/23 apixaban 5 mg tablet (Eliquis) 5 mg PO BID #60 tabs 05/12/24 nicotine 21 mg/24 hr daily 21 mg transdermal DAILY #30 ea 06/07/24 transdermal patch doxycycline hyclate 100 mg capsule 100 mg PO BID 6 days #12 caps 06/19/24 Mental Status Exam Mental Status Exam Narrative: Pt is alert and oriented; behavior is cooperative, friendly and calm; patient is not in distress; dressed in casual attire, nasal cannula and adequate hygiene; mood is described as ready to go and affect congruent, calm; eye contact appropriate; Speech is normal rate, volume and prosody and not pressured; no psychomotor agitation/retardation present; thought process is organized and goal directed; Thought content is on tx; otherwise pertinent to relevant topics and without any delusional content, paranoid ideations or grandiosity; denies any SI/HI. There is no evidence of perceptual disturbance. Patients insight and judgment appear intact. Data Data Completed and Pending Completed studies during hospitalization [Text1]: 07/04/24 07/04/24 07/05/24 18:43 23:03 10:27 WBC 9.9 RBC 5.12 Hgb 15.7 Hct 50.2 H MCV 98.0 MCH 30.7 MCHC 31.3 RDW 14.3 Plt Count 239 D MPV 10.2 Immature Gran % (Auto) 0.7 H Neut % (Auto) 60.8 Lymph % (Auto) 29.4 [place] % (Auto) 6.5 Eos % (Auto) 1.5 Baso % (Auto) 1.1 Lymph # (Auto) 2.9 [place] # (Auto) 0.6 Eos # (Auto) 0.2 Baso # (Auto) 0.1 Abs Immat Gran (auto) 0.07 H Absolute Neuts (auto) 6.0 Absolute Nucleated RBC 0.030 H Nucleated RBC % (auto) 0.3 H Smear Tech's Comments VERIFIED VBG pH 7.29 L 7.36 VBG pCO2 73 57 VBG pO2 66 73 VBG HCO3 35 H 32 H VBG O2 Saturation 94.0 96.0 VBG Base Excess 6.5 5.1 Sodium 140 Potassium 4.8 Chloride 104 Carbon Dioxide 28 Anion Gap 13 BUN 12 Creatinine 0.76 Estim Creat Clear Calc 117.2 Estimated GFR > 60 Random Glucose 113 Estimat Average Glucose Hemoglobin A1c % Calcium 9.4 D Magnesium 2.3 Total Bilirubin 0.2 AST 20 ALT 15 Alkaline Phosphatase 58 Total Protein 7.0 Albumin 3.9 Triglycerides Cholesterol LDL Cholesterol, Calc HDL Cholesterol Vitamin B12 Folate TSH 0.97 Free T4 Urine Color Urine Appearance Urine pH Ur Specific [place] Urine Protein Urine Glucose (UA) Urine Ketones Urine Blood Urine Nitrite Ur Leukocyte Esterase Urine RBC Urine WBC Ur Squamous Epith Cells Urine Bacteria Hyaline Casts Urine Opiates Screen Not Detected Ur Buprenorphine Scrn Not Detected Ur Oxycodone Screen Not Detected Urine Methadone Screen Not Detected Urine Fentanyl Screen Not Detected Ur Barbiturates Screen Not Detected Ur Phencyclidine Scrn Not Detected Ur Amphetamines Screen Not Detected U Benzodiazepines Scrn Not Detected Urine Cocaine Screen Not Detected U Marijuana (THC) Screen Not Detected Ethyl Alcohol < 10 07/05/24 07/06/24 11:26 07:46 WBC RBC Hgb Hct MCV MCH MCHC RDW Plt Count MPV Immature Gran % (Auto) Neut % (Auto) Lymph % (Auto) [place] % (Auto) Eos % (Auto) Baso % (Auto) Lymph # (Auto) [place] # (Auto) Eos # (Auto) Baso # (Auto) Abs Immat Gran (auto) Absolute Neuts (auto) Absolute Nucleated RBC Nucleated RBC % (auto) Smear Tech's Comments VBG pH VBG pCO2 VBG pO2 VBG HCO3 VBG O2 Saturation VBG Base Excess Sodium Potassium Chloride Carbon Dioxide Anion Gap BUN Creatinine Estim Creat Clear Calc Estimated GFR Random Glucose Estimat Average Glucose 117 Hemoglobin A1c % 5.7 Calcium Magnesium 2.0 Total Bilirubin AST ALT Alkaline Phosphatase Total Protein Albumin Triglycerides 144 Cholesterol 170 LDL Cholesterol, Calc 95 HDL Cholesterol 47 Vitamin B12 1397 H Folate 4.9 TSH 1.01 Free T4 0.85 Urine Color Yellow Urine Appearance Cloudy Urine pH 5.5 Ur Specific [place] 1.015 Urine Protein Negative Urine Glucose (UA) Negative Urine Ketones Negative Urine Blood Negative Urine Nitrite Negative Ur Leukocyte Esterase Large (3+) H Urine RBC 0-2 Urine WBC >50 H Ur Squamous Epith Cells 11-20 Urine Bacteria 2+ Hyaline Casts 0-2 Urine Opiates Screen Ur Buprenorphine Scrn Ur Oxycodone Screen Urine Methadone Screen Urine Fentanyl Screen Ur Barbiturates Screen Ur Phencyclidine Scrn Ur Amphetamines Screen U Benzodiazepines Scrn Urine Cocaine Screen U Marijuana (THC) Screen Ethyl Alcohol 07/05/24 Unknown Urine clean catch - Clean Catch Midstream Urine Culture - Final Strep agalactiae (Grp B) DS: Summary Hospital Course Hospital Course: HPI/Hospital course: 54-year-old female with past medical history significant for pulmonary embolism on Eliquis, COPD, FABIOLA, on chronic 3L O2 nasal cannula, parotid gland neoplasm s/p surgical excision obesity, bipolar disorder, PTSD, borderline personality, substance abuse hx in remission, who presents for suicidal ideation in face of psychosocial stressors. Pt reports she's been feeling stressed as she is preparing to move; this past week a beloved relative which caused her overwhelming sorry and triggered urge to be ; also pt not sleeping, not eating much... She had thoughts to open up her medication lock box and overdose; instead she called 911. Denies any recent drug use and UDS negative. She reports being consistent with medication. On admission mood was already starting to improve and SI had fully resolved. She was continued on all home medications, no changes made. Pt was treated for a boil on her arm and UTI with antibiotics; treated for thrush with oral nystatin (which she has and uses at home). Pt remained in good behavioral and impulse control throughout her stay on the unit and was appropriate with peers and staff. Pt felt back to her regular self and asked for discharge, wanting to return home to continue packing for her upcoming mood. Pt remained w/out any SI and staff agreed she returned to baseline. Pt remains vulnerable to emotional decompensation but this is chronic issue which has significantly improved over the years with her ongoing commitment to sobriety and does not require further inpt treatment. Pt has extensive outpt support well-established and is appropriate to return to the community for tx. She is not in imminent risk for harm to self or others and request for dc honored. pt reports she has adequate supply of all home meds and does not need refills Time spent discussing smoking cessation with patient: 3 to 10 minutes Status at Discharge Functional status at discharge: independent ambulation Overall status at discharge: patient is back to baseline Time Spent with Patient Time attestation: Total time managing care of this patient today 40____ minutes. Time spent: Less than 30 minutes Discharge Plan Discharge Anticipated Discharge Date/Time: 07/09/24 11:50 Patient Disposition: Home, Self-Care Discharge Diagnosis: bipolar I disorder, recurrent, severe most recent episode depressed, in full remission Referrals: PCP Dr. Malone [Other] - 07/19/24 2:30 pm Psychiatry [facility] [Other] - 07/26/24 3:00 pm (Telehealth) Physician,Unknown J [Primary Care Provider] - 1 Week Discharge Medications: New cefuroxime axetil 250 mg Tablet 250 mg PO BID 4 Days Qty: 8 0RF nystatin 100,000 unit/mL Suspension 400,000 unit PO QID Qty: 0 0RF Continued ropinirole 1 mg Tablet 1 mg PO BEDTIME Qty: 30 0RF olanzapine 10 mg Tablet 10 mg PO BEDTIME Qty: 30 0RF clonidine HCl 0.2 mg Tablet 0.2 mg PO BEDTIME Qty: 30 0RF Protocol: Hold for SBP< HOLD for SBP < : 90 cetirizine 10 mg Tablet 10 mg PO DAILY PRN (Reason: Allergy Symptoms) melatonin 3 mg Tablet 3 mg PO BEDTIME cholecalciferol (vitamin D3) [Vitamin D3] 25 mcg (1,000 unit) tablet 25 mcg PO DAILY ferrous sulfate 325 mg (65 mg iron) Tablet 325 mg PO DAILY fluticasone propion-salmeterol [Advair HFA] 115-21 mcg/actuation Hfa Aerosol Inhaler 2 puff INHALATION BID PRN (Reason: Shortness Of Breath Or Wheezing) pantoprazole 20 mg Tablet,Delayed Release (Dr/Ec) 40 mg PO DAILY@0630 Eliquis 5 mg Tablet 5 mg PO BID Qty: 60 0RF doxycycline hyclate 100 mg capsule 100 mg PO BID 3 Days Qty: 6 0RF lithium carbonate 450 mg tablet extended release 450 mg PO TID cyanocobalamin (vitamin B-12) [Vitamin B-12] 1,000 mcg tablet 1,000 mcg PO DAILY ipratropium-albuterol 0.5 mg-3 mg(2.5 mg base)/3 mL solution for nebulization 3 ml inhalation RQ6H PRN (Reason: Shortness Of Breath Or Wheezing) albuterol sulfate 2.5 mg /3 mL (0.083 %) Solution For Nebulization 2.5 mg INHALATION Q4-6H PRN (Reason: Shortness Of Breath Or Wheezing) gabapentin 400 mg Capsule 400 mg PO TID PRN (Reason: Pain) Spiriva Respimat 1.25 mcg/actuation Mist 2 puff INHALATION DAILY guaifenesin 100 mg/5 mL Liquid 200 mg PO Q4-6H PRN (Reason: Cough) nicotine 21 mg/24 hr Patch 24 Hour 21 mg transdermal DAILY Qty: 30 0RF Discontinued gabapentin 400 mg PO 3XD PRN (Reason: Pain) Discharge Orders: Discharge Order (Routine); Ordered 07/09/24 Ordered By: Lamont Damon Diet: Diabetic diet Activity on Discharge: As tolerated Stand Alone Forms: Patient Portal Discharge page, Community Support Print Language: Upper Sorbian Care Plan Goals: Maintain mood and safe behaviors Take medications as prescribed Continue to pursue sobriety Practice coping skills Continue with outpatient providers and reach out to them as needed Health Concerns: Mood stability and behaviors COPD FABIOLA Hx PE UTI Thrush, oral candidiasis Plan of Treatment: Follow up with your PCP, psychiatric provider and other outpatient providers regarding above concerns Take medications as prescribed Assessment: Risk assessment at time of discharge:? Patient was interviewed prior to discharge and found to be fully oriented and without any SI or HI. Patient has improved insight and judgment and wants to continue treatment. Patient is not in imminent risk of harm to self or others and has a safety plan that includes presenting to the closest ER or calling 911 if feeling unsafe.? Patient has been observed closely by nursing and unit staff throughout admission; patient has not engaged in any behaviors that suggest dangerousness to self or others and has demonstrated appropriate behaviors and impulse control
== END 2024-07-09 11:30 | disposition home or self-care (01) | DRG 753 ==
LOC: HO.ED 07-05 00:16 → HO.PM5 07-05 12:54
PROVIDERS: Emergency Medicine; Physician Assistant Medical; Admitting Provider Clinical Nurse Specialist Psychiatric/Mental Health, Adult; Emergency Provider Emergency Medicine; Visit Provider Psychiatry & Neurology Psychiatry
DX: F31.9 Bipolar disorder, unspecified (principal); B37.0 Candidal stomatitis; R45.851 Suicidal ideations; Z99.81 Dependence on supplemental oxygen; F17.210 Nicotine dependence, cigarettes, uncomplicated; Z71.6 Tobacco abuse counseling; J44.9 Chronic obstructive pulmonary disease, unspecified; G47.33 Obstructive sleep apnea (adult) (pediatric); F43.10 Post-traumatic stress disorder, unspecified; N39.0 Urinary tract infection, site not specified; Z86.711 Personal history of pulmonary embolism; Z79.01 Long term (current) use of anticoagulants; Z79.899 Other long term (current) drug therapy
CPT/HCPCS: 36415; 80053; 80061; 80307; 81001; 82607; 82746; 82803; 83036; 83735; 84439; 84443; 85025; 87086; 87147; 92610; 93005; 99285; S9485

== ENCOUNTER → 2024-07-05 12:49 | Outpatient (BNV) | payer OTHER, SELFPAY | PROVIDERS: Admitting Provider Clinical Nurse Specialist Psychiatric/Mental Health, Adult; Emergency Provider Emergency Medicine; Visit Provider Psychiatry & Neurology Psychiatry | DX: F31.4 Bipolar disorder, current episode depressed, severe, without psychotic features (principal); F43.11 Post-traumatic stress disorder, acute; J44.9 Chronic obstructive pulmonary disease, unspecified; G47.33 Obstructive sleep apnea (adult) (pediatric); N39.0 Urinary tract infection, site not specified | CPT/HCPCS: 99231; 99232 ==

== ENCOUNTER 2024-07-13 11:12 | Emergency (ER) | payer MEDICAID, SELFPAY ==
--- NOTE | ~2024-07-13 | XR_ITS ---
EXAMINATION: XR CHEST CLINICAL INFORMATION: Dyspnea COMPARISON: X-ray 06/24/2024 TECHNIQUE: Frontal view of the chest was obtained. FINDINGS: Stable cardiomediastinal silhouette. Low lung volumes. There is mild vascular prominence, with increased interstitial markings in bilateral lungs. This may reflect mild interstitial pulmonary edema. Hazy opacities in the left lung base, could reflect atelectasis or infiltrate. No significant pleural effusion. No pneumothorax is seen. XR/XR chest 1V IMPRESSION: Vascular interstitial prominence may reflect mild interstitial pulmonary edema. Left basilar hazy opacities could reflect atelectasis or inflammatory/infectious process. Electronically signed by: Hayden Reeves MD 07/13/2024 02:06 PM EDT
[2024-07-13 11:22] VITALS: BP 114/61; BP 123/70; PULSE 88; PULSE 89; RESP 20; TEMP 37.1; O2SAT 90; O2SAT 92; BMI 49.0
--- NOTE | 2024-07-13 11:26 | ECG_ITS ---
Test Reason : SOB Blood Pressure : / mmHG Vent. Rate : 092 BPM Atrial Rate : 092 BPM P-R Int : 142 ms QRS Dur : 082 ms QT Int : 386 ms P-R-T Axes : 014 039 036 degrees QTc Int : 477 ms Poor data quality, interpretation may be adversely affected Normal sinus rhythm with sinus arrhythmia Normal ECG When compared with ECG of 05-JUL-2024 09:16, No significant change was found Referred By: Generic ED Physician Electronically Signed By:KEMAR BADILLO
--- NOTE | 2024-07-13 11:41 | ED.SOB ---
HPI - SOB/Dyspnea General Chief Complaint: Dyspnea Stated Complaint: SOB, expiratory Bilat wheez x1 day Time Seen by Provider: 07/13/24 11:29 Source: patient, EMS and old records reviewed Mode of arrival: EMS Limitations: no limitations History of Present Illness ED Provider: TERENCE ROBLERO Narrative: 54 yo female with acute on chronic respiratory failure COPD on 3L NC at home, depression, substance abuse, PE on eliquis, bipolar disorder here with c/o leg swelling wheezing cough x 1 day, no fevers, no change in sputum production. 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 Patient denies CP. She states she is taking all of her medicaitons. She notes her legs are mostly hanging down all day and she sits a lot. MD elicited complaint: shortness of breath and cough Pertinent past history: COPD Onset (ago): day(s) (1) Context: smoke/fume exposure Timing: constant Severity: moderate Exacerbating factors: exertion and coughing Relieving factors: bronchodilators Known history of: COPD Associated symptoms: cough, wheezing and other (edema) Treatment prior to arrival: oxygen and bronchodilator Related Data Home Medications ?Medication ?Instructions ?Recorded ?Confirmed lithium carbonate 450 mg 450 mg PO TID 05/14/23 07/05/24 tablet,extended release cyanocobalamin (vitamin B-12) 1,000 mcg PO DAILY 06/11/23 07/05/24 1,000 mcg tablet (Vitamin B-12) ipratropium 0.5 mg-albuterol 3 mg 3 ml inhalation RQ6H PRN Shortness 06/11/23 07/05/24 (2.5 mg base)/3 mL nebulization Of Breath Or Wheezing soln cetirizine 10 mg tablet 10 mg PO DAILY PRN Allergy Symptoms 12/19/23 07/05/24 melatonin 3 mg tablet 3 mg PO BEDTIME 12/19/23 07/05/24 cholecalciferol (vitamin D3) 25 25 mcg PO DAILY 02/20/24 07/05/24 mcg (1,000 unit) tablet (Vitamin D3) ferrous sulfate 325 mg (65 mg 325 mg PO DAILY 05/10/24 07/05/24 iron) tablet fluticasone propionate 115 2 puff inhalation BID PRN 05/10/24 07/05/24 mcg-salmeterol 21 mcg/actuation Shortness Of Breath Or Wheezing HFA inhaler (Advair HFA) pantoprazole 20 mg tablet,delayed 40 mg PO DAILY@0630 05/10/24 07/05/24 release albuterol sulfate 2.5 mg/3 mL 2.5 mg inhalation Q4-6H PRN 06/05/24 07/05/24 (0.083 %) solution for nebulization Shortness Of Breath Or Wheezing gabapentin 400 mg capsule 400 mg PO TID PRN Pain 06/05/24 07/05/24 guaifenesin 100 mg/5 mL oral liquid 200 mg PO Q4-6H PRN Cough 06/05/24 07/05/24 tiotropium bromide 1.25 2 puff inhalation DAILY 06/05/24 07/05/24 mcg/actuation mist for inhalation (Spiriva Respimat) Previous Rx's ?Medication ?Instructions ?Recorded clonidine HCl 0.2 mg tablet 0.2 mg PO BEDTIME #30 tabs 03/22/23 olanzapine 10 mg tablet 10 mg PO BEDTIME #30 tabs 03/22/23 ropinirole 1 mg tablet 1 mg PO BEDTIME #30 tabs 03/22/23 apixaban 5 mg tablet (Eliquis) 5 mg PO BID #60 tabs 05/12/24 nicotine 21 mg/24 hr daily 21 mg transdermal DAILY #30 ea 06/07/24 transdermal patch cefuroxime axetil 250 mg tablet 250 mg PO BID 4 days #8 tabs 07/09/24 doxycycline hyclate 100 mg capsule 100 mg PO BID 3 days #6 caps 07/09/24 naloxone 4 mg/actuation nasal 4 mg intranasal Q2M PRN opioid 07/09/24 spray (Narcan) overdose #2 ea nystatin 100,000 unit/mL oral 400,000 unit (4 mL) PO QID #0 mL 07/09/24 suspension nitrofurantoin 100 mg PO BID 7 days #14 caps 07/13/24 monohydrate/macrocrystals 100 mg capsule (Macrobid) prednisone 20 mg tablet 40 mg (2 x 20 mg) PO DAILY 5 days 07/13/24 #10 tabs Allergies Allergy/AdvReac Type Severity Reaction Status Date / Time aspirin Allergy Mild Anaphylaxis Verified 07/13/24 11:25 ampicillin Allergy Rash Verified 07/13/24 11:25 enoxaparin [From Lovenox] Allergy Anaphylaxis Verified 07/13/24 11:25 Penicillins Allergy Anaphylaxis Verified 07/13/24 11:25 latex AdvReac Rash Verified 07/13/24 11:25 Latex, Natural Rubber AdvReac Rash Verified 07/13/24 11:25 seafood AdvReac Anaphylaxis Verified 07/13/24 11:25 Sulfa (Sulfonamide AdvReac Hives Verified 07/13/24 11:25 Antibiotics) Review of Systems Review of Systems: Constitutional : No Fever, No Chills ENT/Mouth : No Hoarseness, No sore throat, No Rhinorrhea Eyes: No Redness, No Discharge, No Vision Changes Cardiovascular : No Chest Pain, positive SOB, positive Dyspnea on Exertion, No Edema Respiratory : positive Cough, No Sputum, positive Wheezing, Gastrointestinal : No Nausea, No Vomiting, No Diarrhea, No abdominal Pain Genitourinary : No Dysuria, No Hematuria Musculoskeletal : No joint pain, No Myalgias Skin : No rash Neuro : No Weakness, No Numbness, No Headache Psych : No anxiety, depression Heme/Lymph: No Bruising, No Bleeding Endocrine : No Polyuria, No Polydipsia All other systems reviewed and are negative PMFSH Past Medical History Attestation statement: The following information was validated with the patient. Source: old records reviewed Medical History FABIOLA (obstructive sleep apnea) Asthma Morbid obesity Intentional overdose Acute bronchospasm Bipolar I disorder with depression Overdose on Tylenol Suicide attempt Asthma COPD (chronic obstructive pulmonary disease) Chronic lung disease Neoplasm of parotid gland Depression 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 Drug abuse Bipolar I disorder Post traumatic stress disorder (PTSD) Tobacco use disorder Borderline personality disorder Intermittent explosive disorder Asthma exacerbation in COPD Herpes Tobacco use Bipolar disorder COPD (chronic obstructive pulmonary disease) Surgical History History of ankle surgery History of back surgery Hx of cholecystectomy History of appendectomy Family History Family History Mother COPD (chronic obstructive pulmonary disease) Social History Social History Household Members: None Household Members Other:: So Housing: Apartment Housing Other:: Sleeps on the couch at [facility] house Do you presently have visiting nurse or other home services: Yes ([place]) Unable to assess alcohol history related to: Unknown Alcohol intake: former Comment: patient has 1:1 staffing Patient Tobacco Use Status: Current everyday Tobacco user Tobacco use type: Cigarette Cigarette Packs Per Day: 3 Cigarettes Per Day: 60.0 Years Smoked: 37 Smoked in Last 30 Days: Yes e-Cigarette/Vaping Use: Never Used Second Hand Smoke Exposure: Yes Use of substances other than those prescribed or required for medical reasons: No Substance Use Type: Former Substance User Advance Directives: Yes Advance Directives on File: Yes Advance Directives Date on File: 06/17/22 Do you have a plan to hurt others: No Plan Patient : No service: No Current occupational status: unemployed and disabled Sexual orientation: Straight/Heterosexual Physical Exam Vital Signs: Vital Signs: Last Vital Signs Temp 98.1 F 07/13/24 14:22 Pulse 80 07/13/24 14:22 Resp 28 H 07/13/24 14:22 BP 111/50 L 07/13/24 14:22 Pulse Ox 91 L 07/13/24 14:22 O2 Del Method Room Air 07/13/24 14:22 O2 Flow Rate 2 07/13/24 13:40 Oxygen Flow Rate 3 07/13/24 11:22 BMI result Body Mass Index 49.0 Appearance: Alert. Oriented X3. No acute distress. Eyes: Pupils equal, round and reactive to light. ENT: Pharynx normal. Neck: Normal inspection. Neck supple. CVS: Normal heart rate and rhythm. Pulses normal. Respiratory: No respiratory distress. Breath sounds typical for patient with diffuse exp wheezes throughout Abdomen: Soft and nontender. Skin: Skin warm and dry. Normal skin color. Normal skin turgor. Extremities: non pitting bilateral symmetric ankle edema. No calf ttp Neuro: Oriented X 3. No motor deficit. No sensory deficit. Course Course Course Narrative: repeat VBG normal Reevaluation(s) Reevaluation #1: observation care revealed that the patient does NOT meet psychiatric / medical necessity for hospitalization. final disposition discussed with the patient. The patient completed observation care at 430pm. she had repeat VBG which was normal she is refusing admission and wants to leave AMA she is alert and oriented x 3. Medications Administered Generic Name Dose Route Start Last Admin Trade Name Freq PRN Reason Stop Dose Admin Nitrofurantoin Macrocrystals 100 mg 07/13/24 13:45 07/13/24 14:27 Nitrofurantoin Monohyd/M-Cryst 100 Mg Capsule PO 07/20/24 13:44 100 mg BID TEJA Administration Discontinued Medications Generic Name Dose Route Start Last Admin Trade Name Freq PRN Reason Stop Dose Admin Albuterol Sulfate 7.5 mg/ 0 mg 07/13/24 11:44 07/13/24 11:49 Albuterol/Ipratropium 3 ml INHALE 07/13/24 11:45 1 each ONCE ONE Administration Furosemide 20 mg 07/13/24 14:14 07/13/24 14:27 Furosemide 20 Mg Tablet PO 07/13/24 14:15 20 mg ONCE ONE Administration Protocol Methylprednisolone Sodium Succinate 60 mg 07/13/24 11:47 07/13/24 12:02 Methylprednisolone Sod Succ 125 Mg/2 Ml Vial IVPUSH 07/13/24 11:48 60 mg ONCE ONE Administration Medical Decision Making Medical Decision Making MDM Narrative: 54 yo female with acute on chronic respiratory failure COPD on 2L NC at home, depression, substance abuse, PE on eliquis, bipolar disorder here with c/o her chronic dyspnea and wheezes now with c/o leg swelling already on eliquis and compliant. There are no signs of infection/fevers/cellulitis. It looks more like dependent edema. At this time the patient will need labs, CXR, IV steroids, nebs if work up negative will refer to PT/CM for placement her breathing really is typical and termite control representative for [place] and her legs are not pitting no signs of infection doubt DVT. Differential Diagnosis Differential Diagnoses: The differential diagnosis associated with the presentation includes COPD, noncompliance, dependent edema Admission/Observation Consideration of admission/observation: Escalation of care including admission/observation considered needs PT/CM for chronic issues I do not think she needs admission a lot of this is chronic though she may fail PT/CM as she has so frequently given her poorly controlled chronic issues prednisone ordered RT made aware for CPAP during naps/sleep macrobid for UTI Consult Healthcare Provider Management of the patient was discussed with: Wire Straightening Machine Operator Lab Data MDM Lab Attestation statement: I reviewed the patient's lab results. 07/13/24 12:11 07/13/24 12:11 Labs: Lab Results 07/13/24 07/13/24 07/13/24 Range/Units 11:54 12:11 12:15 WBC 11.1 H (4.8-10.8) X10*3/uL RBC 4.78 (4.20-5.50) X10*6/uL Hgb 14.6 (12.0-16.0) g/dl Hct 46.4 (37.0-47.0) % MCV 97.1 (80.0-98.0) fL MCH 30.5 (27.0-33.0) pg MCHC 31.5 (31.0-35.0) g/dl RDW 14.1 (11.0-16.0) % Plt Count 204 (160-400) X10*3/uL MPV 9.9 (9.4-12.3) fL Immature Gran % (Auto) 0.6 H (0.0-0.4) % Neut % (Auto) 63.1 (45-73) % Lymph % (Auto) 27.5 (20-40) % [place] % (Auto) 6.5 (2-11) % Eos % (Auto) 1.4 (0-4) % Baso % (Auto) 0.9 (0-2) % Lymph # (Auto) 3.1 (1.2-4.9) X10*3/uL [place] # (Auto) 0.7 (0.1-1.2) X10*3/uL Eos # (Auto) 0.2 (0.0-0.4) X10*3/uL Baso # (Auto) 0.1 (0.0-0.2) X10*3/uL Abs Immat Gran (auto) 0.07 H (0.00-0.03) X10*3/uL Absolute Neuts (auto) 7.0 (2.0-8.3) x10*3/uL Absolute Nucleated RBC 0.000 (0.0-0.012) X10*3/uL Nucleated RBC % (auto) 0.0 (0.0-0.2) /100WBC VBG pH 7.37 (7.32-7.43) VBG pCO2 58 mmHg VBG pO2 72 mmHg VBG HCO3 34 H (22-26) mmol/L VBG O2 Saturation 97.0 % VBG Base Excess 7.2 mmol/L Sodium 141 (135-145) mmol/L Potassium 4.0 (3.3-5.1) mmol/L Chloride 104 (96-108) mmol/L Carbon Dioxide 29 (22-29) mmol/L Anion Gap 12 (12-20) BUN 6 L (9-16) mg/dL Creatinine 0.64 (0.5-1.4) mg/dL Estim Creat Clear Calc 140.6 Estimated GFR > 60 Random Glucose 94 (60-115) mg/dL Calcium 9.9 (8.4-10.2) mg/dL Magnesium 2.0 (1.6-2.6) mg/dL Total Bilirubin 0.4 (0.0-1.0) mg/dL AST 13 (5-31) U/L ALT 16 (0-31) U/L Alkaline Phosphatase 58 (39-117) U/L Troponin I High Sens < 2.7 (<3.5-17.0) ng/L B-Natriuretic Peptide 28 (<100) pg/mL Total Protein 6.5 (6.5-8.0) g/dL Albumin 4.0 (3.5-5.0) g/dL Urine Color Yellow Urine Appearance Cloudy Urine pH 7.0 (5.0-9.0) Ur Specific [place] <= 1.005 (1.005-1.025) Urine Protein Negative (Neg-Trace) mg/dL Urine Glucose (UA) Negative (Negative) mg/dL Urine Ketones Negative (Negative) mg/dL Urine Blood Trace H (Negative) Urine Nitrite Negative (Negative) Ur Leukocyte Esterase Large (3+) H (Negative) Urine RBC 0-2 (0-2) /HPF Urine WBC 21-50 H (0-5) /HPF Ur Squamous Epith Cells 6-10 (0-2) /HPF Urine Bacteria Trace (None Seen) Hyaline Casts 0-2 (0-2) /LPF Urine Opiates Screen Not Detected (Not Detect) Ur Buprenorphine Scrn Not Detected (Not Detect) ng/mL Ur Oxycodone Screen Not Detected (Not Detect) ng/mL Urine Methadone Screen Not Detected (Not Detect) ng/mL Urine Fentanyl Screen Not Detected (Not Detect) Ur Barbiturates Screen Not Detected (Not Detect) Ur Phencyclidine Scrn Not Detected (Not Detect) Ur Amphetamines Screen Not Detected (Not Detect) U Benzodiazepines Scrn Not Detected (Not Detect) Urine Cocaine Screen Not Detected (Not Detect) U Marijuana (THC) Screen Not Detected (Not Detect) 07/13/24 Range/Units 15:26 WBC (4.8-10.8) X10*3/uL RBC (4.20-5.50) X10*6/uL Hgb (12.0-16.0) g/dl Hct (37.0-47.0) % MCV (80.0-98.0) fL MCH (27.0-33.0) pg MCHC (31.0-35.0) g/dl RDW (11.0-16.0) % Plt Count (160-400) X10*3/uL MPV (9.4-12.3) fL Immature Gran % (Auto) (0.0-0.4) % Neut % (Auto) (45-73) % Lymph % (Auto) (20-40) % [place] % (Auto) (2-11) % Eos % (Auto) (0-4) % Baso % (Auto) (0-2) % Lymph # (Auto) (1.2-4.9) X10*3/uL [place] # (Auto) (0.1-1.2) X10*3/uL Eos # (Auto) (0.0-0.4) X10*3/uL Baso # (Auto) (0.0-0.2) X10*3/uL Abs Immat Gran (auto) (0.00-0.03) X10*3/uL Absolute Neuts (auto) (2.0-8.3) x10*3/uL Absolute Nucleated RBC (0.0-0.012) X10*3/uL Nucleated RBC % (auto) (0.0-0.2) /100WBC VBG pH 7.34 (7.32-7.43) VBG pCO2 58 mmHg VBG pO2 75 mmHg VBG HCO3 32 H (22-26) mmol/L VBG O2 Saturation 97.0 % VBG Base Excess 4.4 mmol/L Sodium (135-145) mmol/L Potassium (3.3-5.1) mmol/L Chloride (96-108) mmol/L Carbon Dioxide (22-29) mmol/L Anion Gap (12-20) BUN (9-16) mg/dL Creatinine (0.5-1.4) mg/dL Estim Creat Clear Calc Estimated GFR Random Glucose (60-115) mg/dL Calcium (8.4-10.2) mg/dL Magnesium (1.6-2.6) mg/dL Total Bilirubin (0.0-1.0) mg/dL AST (5-31) U/L ALT (0-31) U/L Alkaline Phosphatase (39-117) U/L Troponin I High Sens (<3.5-17.0) ng/L B-Natriuretic Peptide (<100) pg/mL Total Protein (6.5-8.0) g/dL Albumin (3.5-5.0) g/dL Urine Color Urine Appearance Urine pH (5.0-9.0) Ur Specific [place] (1.005-1.025) Urine Protein (Neg-Trace) mg/dL Urine Glucose (UA) (Negative) mg/dL Urine Ketones (Negative) mg/dL Urine Blood (Negative) Urine Nitrite (Negative) Ur Leukocyte Esterase (Negative) Urine RBC (0-2) /HPF Urine WBC (0-5) /HPF Ur Squamous Epith Cells (0-2) /HPF Urine Bacteria (None Seen) Hyaline Casts (0-2) /LPF Urine Opiates Screen (Not Detect) Ur Buprenorphine Scrn (Not Detect) ng/mL Ur Oxycodone Screen (Not Detect) ng/mL Urine Methadone Screen (Not Detect) ng/mL Urine Fentanyl Screen (Not Detect) Ur Barbiturates Screen (Not Detect) Ur Phencyclidine Scrn (Not Detect) Ur Amphetamines Screen (Not Detect) U Benzodiazepines Scrn (Not Detect) Urine Cocaine Screen (Not Detect) U Marijuana (THC) Screen (Not Detect) Independent Interpretation I performed an independent interpretation of an: EKG and Plain X-Ray (normal ) Interpretation: Rate: 92 Rhythm: NSR [place]: normal Normal P waves. Normal GABBIE. Normal QRS complex. ST T wave :no KYRIE, nonspecific ST T wave changes qTC: 477 prior studies: no acute ischemia The study has been interpreted contemporaneously by me. . Radiology Impression Discussion of test interpretation with radiology: I have reviewed the radiologist's reading. Independent Historian Clinical information obtained from an independent historian. 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 placement but you refused to stay at this please start steroids and antibiotics tomorrow return at any time for worsening symptoms Prescriptions: New prednisone 20 mg tablet 40 mg PO DAILY 5 Days Qty: 10 0RF nitrofurantoin monohyd/m-cryst [Macrobid] 100 mg capsule 100 mg PO BID 7 Days Qty: 14 0RF Rx Instructions: must administer with a meal/food No Action ropinirole 1 mg Tablet 1 mg PO BEDTIME Qty: 30 0RF olanzapine 10 mg Tablet 10 mg PO BEDTIME Qty: 30 0RF clonidine HCl 0.2 mg Tablet 0.2 mg PO BEDTIME Qty: 30 0RF Protocol: Hold for SBP< HOLD for SBP < : 90 cetirizine 10 mg Tablet 10 mg PO DAILY PRN (Reason: Allergy Symptoms) melatonin 3 mg Tablet 3 mg PO BEDTIME cholecalciferol (vitamin D3) [Vitamin D3] 25 mcg (1,000 unit) tablet 25 mcg PO DAILY ferrous sulfate 325 mg (65 mg iron) Tablet 325 mg PO DAILY fluticasone propion-salmeterol [Advair HFA] 115-21 mcg/actuation Hfa Aerosol Inhaler 2 puff INHALATION BID PRN (Reason: Shortness Of Breath Or Wheezing) pantoprazole 20 mg Tablet,Delayed Release (Dr/Ec) 40 mg PO DAILY@0630 Eliquis 5 mg Tablet 5 mg PO BID Qty: 60 0RF cefuroxime axetil 250 mg Tablet 250 mg PO BID 4 Days Qty: 8 0RF nystatin 100,000 unit/mL Suspension 400,000 unit PO QID Qty: 0 0RF doxycycline hyclate 100 mg capsule 100 mg PO BID 3 Days Qty: 6 0RF naloxone [Narcan] 4 mg/actuation spray,non-aerosol 4 mg intranasal Q2M PRN (Reason: opioid overdose) Qty: 2 0RF Rx Instructions: spray 1 dose into ONE nostril; alternate nostrils w each dose until help arrives lithium carbonate 450 mg tablet extended release 450 mg PO TID cyanocobalamin (vitamin B-12) [Vitamin B-12] 1,000 mcg tablet 1,000 mcg PO DAILY ipratropium-albuterol 0.5 mg-3 mg(2.5 mg base)/3 mL solution for nebulization 3 ml inhalation RQ6H PRN (Reason: Shortness Of Breath Or Wheezing) albuterol sulfate 2.5 mg /3 mL (0.083 %) Solution For Nebulization 2.5 mg INHALATION Q4-6H PRN (Reason: Shortness Of Breath Or Wheezing) gabapentin 400 mg Capsule 400 mg PO TID PRN (Reason: Pain) Spiriva Respimat 1.25 mcg/actuation Mist 2 puff INHALATION DAILY guaifenesin 100 mg/5 mL Liquid 200 mg PO Q4-6H PRN (Reason: Cough) nicotine 21 mg/24 hr Patch 24 Hour 21 mg transdermal DAILY Qty: 30 0RF Print Language: Swedish
[2024-07-13 11:45] VITALS: PULSE 89; RESP 28; O2SAT 94
[2024-07-13] MEDS: Albuterol Sulfate 7.5 MG, Albuterol/Iprat 2.5/0.5MG 3 ML 3 ML INHALE (11:49)
[2024-07-13] MEDS: methylPREDNISolone Sod Succ 125 MG/2 ML VIAL 60 MG IVPUSH (12:02)
[2024-07-13 12:07] LABS: Appearance Urine Cloudy; Color Urine Yellow; Glucose Urine UA Negative (Negative); Leukocyte Esterase Urine Large (3+) (Negative); Nitrite Urine Negative (Negative); Specific Gravity - Urine <= 1.005 (1.005-1.025); UMIC TRIGGER UACC YES; Urine Blood Trace (Negative); Urine Ketones Negative (Negative); Urine Protein Negative (Neg-Trace)
[2024-07-13 12:09] LABS: Bacteria Urine Trace (None Seen); Hyaline Casts Urine 0-2 /LPF (0-2); RBC Urine 0-2 /HPF (0-2); UACC Culture Trigger YES; WBC Urine 21-50 /HPF (0-5)
[2024-07-13 12:15] LABS: MANUAL DIFF FLAG NO
[2024-07-13 12:18] LABS: Basophils Absolute Auto 0.1 X10*3/uL (0.0-0.2); Basophils Percent Auto 0.9 % (0-2); Eosinophils Absolute Auto 0.2 X10*3/uL (0.0-0.4); Eosinophils Percent Auto 1.4 % (0-4); Hematocrit 46.4 % (37.0-47.0); Hemoglobin 14.6 g/dl (12.0-16.0); Imm Gran Abs Auto 0.07 X10*3/uL (0.00-0.03); Imm Gran Pct Auto 0.6 % (0.0-0.4); Lymphocytes Absolute Auto 3.1 X10*3/uL (1.2-4.9); Lymphocytes Percent Auto 27.5 % (20-40); Mean Corpuscular HGB Conc 31.5 g/dl (31.0-35.0); Mean Corpuscular Hemoglobin 30.5 pg (27.0-33.0); Mean Corpuscular Volume 97.1 fL (80.0-98.0); Mean Platelet Volume 9.9 fL (9.4-12.3); Monocytes Absolute Auto 0.7 X10*3/uL (0.1-1.2); Monocytes Percent Auto 6.5 % (2-11); Neutrophils Percent Auto 63.1 % (45-73); Platelet Count 204 X10*3/uL (160-400); Red Blood Count 4.78 X10*6/uL (4.20-5.50); Red Cell Distribution Width 14.1 % (11.0-16.0); White Blood Count 11.1 X10*3/uL (4.8-10.8)
[2024-07-13 12:19] LABS: Venous Blood Gas Refer to POC result
[2024-07-13 12:19] LABS: VBG Base Excess 7.2 mmol/L; VBG HCO3 34 mmol/L (22-26); VBG pCO2 58 mmHg; VBG pH 7.37 (7.32-7.43); VBG pO2 72 mmHg
[2024-07-13 12:31] LABS: Alanine Aminotransferase 16 U/L (0-31); Alkaline Phosphatase 58 U/L (39-117); Anion Gap 12 (12-20); Aspartate Amino Transferase 13 U/L (5-31); Bilirubin Total 0.4 mg/dL (0.0-1.0); Blood Urea Nitrogen 6 mg/dL (9-16); Calcium 9.9 mg/dL (8.4-10.2); Carbon Dioxide 29 mmol/L (22-29); Chloride 104 mmol/L (96-108); Creatinine Clr Calc Pharmacy 140.6; Estimated Glomerular Filt Rate > 60; Glucose Random 94 mg/dL (60-115); Sodium 141 mmol/L (135-145); Total Protein 6.5 g/dL (6.5-8.0)
[2024-07-13 12:37] LABS: B Type Natriuretic Peptide 28 pg/mL (<100)
[2024-07-13 12:41] LABS: Troponin-I High Sensitivity < 2.7 ng/L (<3.5-17.0)
[2024-07-13 13:40] VITALS: BP 99/58; PULSE 92; RESP 22; O2SAT 91
[2024-07-13 13:55] VITALS: PULSE 85; RESP 22; O2SAT 91
[2024-07-13 14:22] VITALS: BP 111/50; PULSE 80; RESP 28; TEMP 36.7; O2SAT 91
[2024-07-13] MEDS: Furosemide 20 MG TABLET PO (14:27)
[2024-07-13] MEDS: Nitrofurantoin Monohyd/M-Cryst 100 MG CAPSULE PO (14:27)
[2024-07-13 14:35] LABS: Amphetamine Screen Urine Not Detected (Not Detect); Barbiturates, Urine Not Detected (Not Detect); Benzodiazepines Screen Urine Not Detected (Not Detect); Buprenorphine Scr Not Detected (Not Detect); Cannabinoid Screen Urine Not Detected (Not Detect); Cocaine Screen Urine Not Detected (Not Detect); Fentanyl, urine Not Detected (Not Detect); Methadone Screen, Urine Not Detected (Not Detect); Opiate Screen Urine Not Detected (Not Detect); Oxycodone Screen Urine Not Detected (Not Detect); Phencyclidine Screen Urine Not Detected (Not Detect)
--- NOTE | 2024-07-13 14:43 | MHC.CM.ED ---
Received consult for assessment of d/c needs: pt brought in for SOB - per EMR, community comp field case manager feel pt needs LTC placement as she is not able to meet her own care needs in the community. Attempted to meet w/pt x2: Pt sleeping, difficult to wake and not participating in communication. Pt is well known to [facility] from past admissions - Tox screen negative on arrival, HCP on file. CM to attempt assessment when pt is more alert and able to hold a conversation without falling asleep.
--- NOTE | 2024-07-13 15:20 | PC.NURSE ---
Patient difficult to wake up for nursing and provider, Dr. Cisse ordered additional VBG, secuity called to bedside to look through patient's bag.
[2024-07-13 15:31] LABS: VBG Base Excess 4.4 mmol/L; VBG HCO3 32 mmol/L (22-26); VBG pCO2 58 mmHg; VBG pH 7.34 (7.32-7.43); VBG pO2 75 mmHg
[2024-07-13 16:27] LABS: Venous Blood Gas Refer to POC result
--- NOTE | 2024-07-13 16:27 | PC.NURSE ---
Patient wants to go home, Dr. Cisse made aware, Dr. Cisse unable to convince patient to stay, patient willing to go AMA home, however needs an ambulance ride, needs ride home coordinated home.
--- NOTE | 2024-07-13 17:01 | MHC.CM.ED ---
CM received notice that patient was leaving AMA. CM went to speak with patient. Pt had already left the ED.
[2024-07-13 17:02] VITALS: BP 110/75; PULSE 93; RESP 24; TEMP 36.7; O2SAT 93
== END 2024-07-13 17:03 | disposition left against medical advice (07) ==
PROVIDERS: Emergency Provider Emergency Medicine
DX: N39.0 Urinary tract infection, site not specified (principal); J44.9 Chronic obstructive pulmonary disease, unspecified; R06.02 Shortness of breath; Z53.29 Procedure and treatment not carried out because of patient's decision for other reasons; R05.9 Cough, unspecified; F17.210 Nicotine dependence, cigarettes, uncomplicated; F19.10 Other psychoactive substance abuse, uncomplicated; Z86.711 Personal history of pulmonary embolism; Z79.01 Long term (current) use of anticoagulants
CPT/HCPCS: 36415; 71045; 80053; 80307; 81001; 81003; 82803; 83735; 83880; 84484; 85025; 87086; 93005; 94640; 96374; 99285; J2919

== ENCOUNTER 2024-07-25 09:40 | Emergency (ER) | payer MEDICAID, SELFPAY ==
[2024-07-25] VITALS (15 sets, daily range): BP systolic 95–153; BP diastolic 50–102; PULSE 60–91; RESP 12–27; TEMP 36.6–37.1; O2SAT 89–96; BMI 47.4
--- NOTE | 2024-07-25 | ECG_ITS ---
Test Reason : dizzy Blood Pressure : / mmHG Vent. Rate : 087 BPM Atrial Rate : 087 BPM P-R Int : 142 ms QRS Dur : 082 ms QT Int : 376 ms P-R-T Axes : 014 024 027 degrees QTc Int : 452 ms Normal sinus rhythm Low voltage QRS Borderline ECG When compared with ECG of 13-JUL-2024 11:23, No significant change was found Referred By: Generic ED Physician Electronically Signed By:KEMAR BADILLO
--- NOTE | ~2024-07-25 | XR_ITS ---
EXAMINATION: XR CHEST CLINICAL INFORMATION: Weakness. COMPARISON: Most recent chest radiograph dated 07/13/2024. TECHNIQUE: 2 views of the chest were obtained. FINDINGS: No airspace consolidation. No pleural effusion or pneumothorax. Stable cardiomediastinal silhouette. XR/XR chest 2V IMPRESSION: No acute cardiopulmonary findings. Electronically signed by: Papo Ayala MD 07/25/2024 12:14 PM EDT
--- NOTE | ~2024-07-25 | CT_ITS ---
EXAMINATION: CT HEAD WITHOUT CONTRAST CLINICAL INFORMATION: Weakness. COMPARISON: May 09, 2024 TECHNIQUE: Contiguous axial imaging was performed from the skull base to vertex without intravenous administration of contrast. This CT examination was performed using dose optimization techniques as appropriate, variously including the following: *Automated exposure control *Adjustment of mA and/or kV according to patient size (this includes techniques or standardized protocols for targeted exams where dose is matched to indication/reason for exam; i.e. extremities or head) *Use of iterative reconstruction technique DLP: 837 mGy-cm FINDINGS: There is no evidence of acute intracranial hemorrhage or large territorial infarction. Jarvis to white matter differentiation is preserved. No mass effect or midline shift. The ventricles are normal in size and configuration. No hydrocephalus or extra-axial fluid collections. The calvarium is intact. Imaged paranasal sinuses are clear. The mastoid air cells are well aerated. CT/CT head/brain wo IV con IMPRESSION: No acute intracranial pathology. Electronically signed by: Isma Hill MD 07/25/2024 12:39 PM EDT
--- NOTE | 2024-07-25 10:15 | PC.NURSE ---
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 pt verbalizes sitting down watching TV when dx occurred at rest. 2L NC baseline but noncompliant. denies chest pain/n/v. upon ED arrival - pt seemingly lethargic. unable to respnd to verbal stimuli only physical. sternal rub performed w/ good effect. vss and up to date. pt remains on 2L via NC at this time. pt does not seem to be in any respiratory distress. no sob/wob noted. respirations even/unlabored. pt positioned upright in no apparent distress. labs obtained/sent to lab. ekg performed by tech. provider bedside assessing pt. plan of care ongoing.
[2024-07-25 10:35] LABS: Basophils Absolute Auto 0.1 X10*3/uL (0.0-0.2); Basophils Percent Auto 0.6 % (0-2); Eosinophils Absolute Auto 0.2 X10*3/uL (0.0-0.4); Eosinophils Percent Auto 1.6 % (0-4); Hematocrit 53.2 % (37.0-47.0); Hemoglobin 16.6 g/dl (12.0-16.0); Imm Gran Abs Auto 0.03 X10*3/uL (0.00-0.03); Imm Gran Pct Auto 0.3 % (0.0-0.4); Lymphocytes Absolute Auto 2.1 X10*3/uL (1.2-4.9); Lymphocytes Percent Auto 22.3 % (20-40); MANUAL DIFF FLAG SCAN; Mean Corpuscular HGB Conc 31.2 g/dl (31.0-35.0); Mean Corpuscular Hemoglobin 30.4 pg (27.0-33.0); Mean Corpuscular Volume 97.4 fL (80.0-98.0); Monocytes Absolute Auto 0.5 X10*3/uL (0.1-1.2); Monocytes Percent Auto 5.1 % (2-11); Neutrophils Absolute Auto 6.7 x10*3/uL (2.0-8.3); Neutrophils Percent Auto 70.1 % (45-73); PLT CLUMP 1; Red Blood Count 5.46 X10*6/uL (4.20-5.50); Red Cell Distribution Width 14.3 % (11.0-16.0); SCAN SMEAR FLAG 1
--- NOTE | 2024-07-25 10:37 | ED_ITS ---
HPI - Dizziness General Chief Complaint: Dizziness Stated Complaint: DIZZY/LIGHTHEADED FOR A FEW HOURS,ON HOME O2 Time Seen by Provider: 07/25/24 10:11 Source: patient and EMS Mode of arrival: EMS Limitations: altered mental status History of Present Illness HPI Narrative: 54-year-old female with acute on chronic respiratory failure COPD on 3 L nasal cannula depression and substance abuse PE Eliquis bipolar leg swelling who presents emergency department stating that she felt dizzy at home. She currently lives alone she previous who is here and diagnosed with the UTI proximally is ago and they were hoping for long-term placement due to her unstable housing she is unable to care for herself. She states today she was watching TV when she felt lightheaded like she might pass out she denies passing out denies hitting her head she denies any fevers chills she does have a cough MD elicited complaint: dizziness and lightheadedness Related Data Home Medications ?Medication ?Instructions ?Recorded ?Confirmed lithium carbonate 450 mg 450 mg PO TID 05/14/23 07/05/24 tablet,extended release cyanocobalamin (vitamin B-12) 1,000 mcg PO DAILY 06/11/23 07/05/24 1,000 mcg tablet (Vitamin B-12) ipratropium 0.5 mg-albuterol 3 mg 3 ml inhalation RQ6H PRN Shortness 06/11/23 07/05/24 (2.5 mg base)/3 mL nebulization Of Breath Or Wheezing soln cetirizine 10 mg tablet 10 mg PO DAILY PRN Allergy Symptoms 12/19/23 07/05/24 melatonin 3 mg tablet 3 mg PO BEDTIME 12/19/23 07/05/24 cholecalciferol (vitamin D3) 25 25 mcg PO DAILY 02/20/24 07/05/24 mcg (1,000 unit) tablet (Vitamin D3) ferrous sulfate 325 mg (65 mg 325 mg PO DAILY 05/10/24 07/05/24 iron) tablet fluticasone propionate 115 2 puff inhalation BID PRN 05/10/24 07/05/24 mcg-salmeterol 21 mcg/actuation Shortness Of Breath Or Wheezing HFA inhaler (Advair HFA) pantoprazole 20 mg tablet,delayed 40 mg PO DAILY@0630 05/10/24 07/05/24 release albuterol sulfate 2.5 mg/3 mL 2.5 mg inhalation Q4-6H PRN 06/05/24 07/05/24 (0.083 %) solution for nebulization Shortness Of Breath Or Wheezing gabapentin 400 mg capsule 400 mg PO TID PRN Pain 06/05/24 07/05/24 guaifenesin 100 mg/5 mL oral liquid 200 mg PO Q4-6H PRN Cough 06/05/24 07/05/24 tiotropium bromide 1.25 2 puff inhalation DAILY 06/05/24 07/05/24 mcg/actuation mist for inhalation (Spiriva Respimat) Previous Rx's ?Medication ?Instructions ?Recorded clonidine HCl 0.2 mg tablet 0.2 mg PO BEDTIME #30 tabs 03/22/23 olanzapine 10 mg tablet 10 mg PO BEDTIME #30 tabs 03/22/23 ropinirole 1 mg tablet 1 mg PO BEDTIME #30 tabs 03/22/23 apixaban 5 mg tablet (Eliquis) 5 mg PO BID #60 tabs 05/12/24 nicotine 21 mg/24 hr daily 21 mg transdermal DAILY #30 ea 06/07/24 transdermal patch cefuroxime axetil 250 mg tablet 250 mg PO BID 4 days #8 tabs 07/09/24 doxycycline hyclate 100 mg capsule 100 mg PO BID 3 days #6 caps 07/09/24 naloxone 4 mg/actuation nasal 4 mg intranasal Q2M PRN opioid 07/09/24 spray (Narcan) overdose #2 ea nystatin 100,000 unit/mL oral 400,000 unit (4 mL) PO QID #0 mL 07/09/24 suspension nitrofurantoin 100 mg PO BID 7 days #14 caps 07/13/24 monohydrate/macrocrystals 100 mg capsule (Macrobid) prednisone 20 mg tablet 40 mg (2 x 20 mg) PO DAILY 5 days 07/13/24 #10 tabs Allergies Allergy/AdvReac Type Severity Reaction Status Date / Time aspirin Allergy Mild Anaphylaxis Verified 07/25/24 09:51 ampicillin Allergy Rash Verified 07/25/24 09:51 enoxaparin [From Lovenox] Allergy Anaphylaxis Verified 07/25/24 09:51 Penicillins Allergy Anaphylaxis Verified 07/25/24 09:51 latex AdvReac Rash Verified 07/25/24 09:51 Latex, Natural Rubber AdvReac Rash Verified 07/25/24 09:51 seafood AdvReac Anaphylaxis Verified 07/25/24 09:51 Sulfa (Sulfonamide AdvReac Hives Verified 07/25/24 09:51 Antibiotics) Review of Systems 2 Review of Systems: Review of systems: Chief complaint dizziness General: Patient denies any fever chills recent illness or falls Musculoskeletal: Denies back pain or body aches or other injuries HEENT: denies headache, runny nose, ear pain Respiratory: denies shortness of breath, cough Cardiovascular: no chest pain or palpitations : denies dysuria, frequency Abdomen: no nausea vomiting denies abdominal pain Extremities: no swelling, no pain Skin: no diaphoresis Very poor story Yes Other PMFSH Past Medical History Medical History FABIOLA (obstructive sleep apnea) Asthma Morbid obesity Intentional overdose Acute bronchospasm Bipolar I disorder with depression Overdose on Tylenol Suicide attempt Asthma COPD (chronic obstructive pulmonary disease) Chronic lung disease Neoplasm of parotid gland Depression 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 Drug abuse Bipolar I disorder Post traumatic stress disorder (PTSD) Tobacco use disorder Borderline personality disorder Intermittent explosive disorder Asthma exacerbation in COPD Herpes Tobacco use Bipolar disorder COPD (chronic obstructive pulmonary disease) Surgical History History of ankle surgery History of back surgery Hx of cholecystectomy History of appendectomy Family History Family History Mother COPD (chronic obstructive pulmonary disease) Social History Social History Household Members: None Household Members Other:: So Housing: Apartment Housing Other:: Sleeps on the couch at [facility] house Do you presently have visiting nurse or other home services: Yes (Faustino) Unable to assess alcohol history related to: Unknown Alcohol intake: former Comment: patient has 1:1 staffing Patient Tobacco Use Status: Current everyday Tobacco user Tobacco use type: Cigarette Cigarette Packs Per Day: 3 Cigarettes Per Day: 60.0 Years Smoked: 37 e-Cigarette/Vaping Use: Never Used Second Hand Smoke Exposure: Yes Substance Use Type: Former Substance User Advance Directives: Yes Advance Directives on File: Yes Advance Directives Date on File: 06/17/22 Do you have a plan to hurt others: No Plan service: No Current occupational status: unemployed and disabled Sexual orientation: Straight/Heterosexual Physical Exam 2 Vital Signs: Vital Signs: Last Vital Signs Temp 98.6 F 07/25/24 11:33 Pulse 81 07/25/24 11:33 Resp 16 07/25/24 11:33 BP 113/58 L 07/25/24 11:33 Pulse Ox 91 L 07/25/24 11:33 O2 Del Method Nasal Cannula 07/25/24 11:33 O2 Flow Rate 2 07/25/24 11:33 BMI result Body Mass Index 47.4 Neurological exam: CN II- XII tested. Patient is alert and oriented to person place and time. Patient has no dysphagia or dysarthia, denies good vision in all four vision carey no nystagmus on exam, good strength to upper and lower extremities with normal reflexes to brachioradialis, wrist, patella and achilles. Negative romberg, good finger to nose and heel to nix. General: Somnolent but arousable Well-appearing well-nourished in no signs of distress HEENT: Normocephalic atraumatic Neck: No signs of JVD, no masses no tenderness or lymphadenopathy Cardiovascular: Regular rate and rhythm Respiratory: Clear to auscultation bilaterally Abdomen: Soft nontender no masses Extremities: Normal pedal pulses no signs of edema Skin: Dry warm no rashes Back: No tenderness full ROM Course Course Course Narrative: Patient did become more conversant after getting Narcan x-ray shows a right- sided infiltrate I will send blood cultures lactic acid insert the patient on antibiotics. I will wait for the lactic acid to discuss the case with the hospitalist Reevaluation(s) Reevaluation #1: Lactic is unremarkable x-ray was read by Radiology as negative unsure if I will continue with antibiotic treatment. Patient is just somnolent I will give a dilator 2 of Narcan see if the patient wakes up some more. Patient may benefit from PT and coordinating care. Patient is still pending urinalysis patient has history of drug use and they will want a urine drug screen before patient will be accepted for placement. Medications Administered Generic Name Dose Route Start Last Admin Trade Name Freq PRN Reason Stop Dose Admin Sodium Chloride 1,000 mls @ 999 mls/hr 07/25/24 11:45 07/25/24 12:14 Ns IV 07/25/24 12:45 999 mls/hr .Q1H1M TEJA Administration Discontinued Medications Generic Name Dose Route Start Last Admin Trade Name Jacob PRN Reason Stop Dose Admin Albuterol Sulfate 5 mg/ 0 mg 07/25/24 10:44 07/25/24 10:49 Albuterol/Ipratropium 3 ml INHALE 07/25/24 10:45 1 each ONCE ONE Administration Sodium Chloride 1,000 mls @ 999 mls/hr 07/25/24 10:45 07/25/24 10:58 Ns IV 07/25/24 11:45 999 mls/hr .Q1H1M TEJA Administration Ceftriaxone Sodium 1 gm/ 50 mls @ 100 mls/hr 07/25/24 11:42 07/25/24 12:31 Sodium Chloride IV 07/25/24 12:11 100 mls/hr ONCE ONE Administration Methylprednisolone Sodium Succinate 125 mg 07/25/24 10:38 07/25/24 10:58 Methylprednisolone Sod Succ 125 Mg/2 Ml Vial IVPUSH 07/25/24 10:39 125 mg ONCE ONE Administration Naloxone HCl 2 mg 07/25/24 10:40 07/25/24 10:58 Naloxone Hcl 2 Mg/2 Ml Syringe IVPUSH 07/25/24 10:41 2 mg ONCE ONE Administration Medical Decision Making Medical Decision Making [facility] Narrative: Patient suddenly but arousable with her chronic respiratory failure and substance abuse history I will start with some Narcan I will give patient fluids check labs including x-ray and CT of her head and reassess Differential Diagnosis Differential Diagnoses: The differential diagnosis associated with the presentation includes Dizziness COPD exacerbation weakness dehydration electrolyte abnormality alcohol intoxication drug abuse Admission/Observation Consideration of admission/observation: Escalation of care including admission/observation considered Lab Data [facility] Lab Attestation statement: I reviewed the patient's lab results. 07/25/24 10:27 07/25/24 10:27 Labs: Lab Results 07/25/24 07/25/24 Range/Units 10:27 12:14 WBC 9.6 (4.8-10.8) X10*3/uL RBC 5.46 (4.20-5.50) X10*6/uL Hgb 16.6 H (12.0-16.0) g/dl Hct 53.2 H (37.0-47.0) % MCV 97.4 (80.0-98.0) fL MCH 30.4 (27.0-33.0) pg MCHC 31.2 (31.0-35.0) g/dl RDW 14.3 (11.0-16.0) % Plt Count TNP MPV TNP Immature Gran % (Auto) 0.3 (0.0-0.4) % Neut % (Auto) 70.1 (45-73) % Lymph % (Auto) 22.3 (20-40) % [place] % (Auto) 5.1 (2-11) % Eos % (Auto) 1.6 (0-4) % Baso % (Auto) 0.6 (0-2) % Lymph # (Auto) 2.1 (1.2-4.9) X10*3/uL [place] # (Auto) 0.5 (0.1-1.2) X10*3/uL Eos # (Auto) 0.2 (0.0-0.4) X10*3/uL Baso # (Auto) 0.1 (0.0-0.2) X10*3/uL Abs Immat Gran (auto) 0.03 (0.00-0.03) X10*3/uL Absolute Neuts (auto) 6.7 (2.0-8.3) x10*3/uL Absolute Nucleated RBC 0.000 (0.0-0.012) X10*3/uL Nucleated RBC % (auto) 0.0 (0.0-0.2) /100WBC Smear Tech's Comments VERIFIED Sodium 143 (135-145) mmol/L Potassium 4.5 (3.3-5.1) mmol/L Chloride 101 (96-108) mmol/L Carbon Dioxide 36 H (22-29) mmol/L Anion Gap 11 L (12-20) BUN 11 (9-16) mg/dL Creatinine 0.71 (0.5-1.4) mg/dL Estim Creat Clear Calc 137.2 Estimated GFR > 60 Random Glucose 109 (60-115) mg/dL Lactic Acid 1.3 (0.5-2.0) mmol/L Calcium 9.9 (8.4-10.2) mg/dL Total Bilirubin 0.4 (0.0-1.0) mg/dL AST 13 (5-31) U/L ALT 10 (0-31) U/L Alkaline Phosphatase 62 (39-117) U/L Total Protein 7.1 (6.5-8.0) g/dL Albumin 4.1 (3.5-5.0) g/dL Ethyl Alcohol < 10 mg/dL Independent Interpretation I performed an independent interpretation of an: EKG, Rhythm Strip, Plain X-Ray and CT Scan Radiology Impression Discussion of test interpretation with radiology: I discussed test interpretation with the radiologist and I have reviewed the radiologist's reading. Independent Historian Clinical information obtained from an independent historian. History obtained from or confirmed by: EMS External Record Review External record reviewed: Inpatient record, Office record, Outpatient record, Prior outpatient labs, Prior outpatient radiology, Primary care record and Outside ED record Social Determinants Patient?s care significantly limited by Social Determinants of Health including: Inadequate housing, Alcoholism and drug addiction in family, Problems related to primary support group and Unemployment Core Measures AMI core measures followed: Yes Discharge Plan Discharge Clinical Impression: Pneumonia, Dizziness, Acute dehydration Patient Disposition: Still a Patient Prescriptions: No Action ropinirole 1 mg Tablet 1 mg PO BEDTIME Qty: 30 0RF olanzapine 10 mg Tablet 10 mg PO BEDTIME Qty: 30 0RF clonidine HCl 0.2 mg Tablet 0.2 mg PO BEDTIME Qty: 30 0RF Protocol: Hold for SBP< HOLD for SBP < : 90 cetirizine 10 mg Tablet 10 mg PO DAILY PRN (Reason: Allergy Symptoms) melatonin 3 mg Tablet 3 mg PO BEDTIME cholecalciferol (vitamin D3) [Vitamin D3] 25 mcg (1,000 unit) tablet 25 mcg PO DAILY ferrous sulfate 325 mg (65 mg iron) Tablet 325 mg PO DAILY fluticasone propion-salmeterol [Advair HFA] 115-21 mcg/actuation Hfa Aerosol Inhaler 2 puff INHALATION BID PRN (Reason: Shortness Of Breath Or Wheezing) pantoprazole 20 mg Tablet,Delayed Release (Dr/Ec) 40 mg PO DAILY@0630 Eliquis 5 mg Tablet 5 mg PO BID Qty: 60 0RF cefuroxime axetil 250 mg Tablet 250 mg PO BID 4 Days Qty: 8 0RF nystatin 100,000 unit/mL Suspension 400,000 unit PO QID Qty: 0 0RF doxycycline hyclate 100 mg capsule 100 mg PO BID 3 Days Qty: 6 0RF naloxone [Narcan] 4 mg/actuation spray,non-aerosol 4 mg intranasal Q2M PRN (Reason: opioid overdose) Qty: 2 0RF Rx Instructions: spray 1 dose into ONE nostril; alternate nostrils w each dose until help arrives lithium carbonate 450 mg tablet extended release 450 mg PO TID cyanocobalamin (vitamin B-12) [Vitamin B-12] 1,000 mcg tablet 1,000 mcg PO DAILY ipratropium-albuterol 0.5 mg-3 mg(2.5 mg base)/3 mL solution for nebulization 3 ml inhalation RQ6H PRN (Reason: Shortness Of Breath Or Wheezing) albuterol sulfate 2.5 mg /3 mL (0.083 %) Solution For Nebulization 2.5 mg INHALATION Q4-6H PRN (Reason: Shortness Of Breath Or Wheezing) gabapentin 400 mg Capsule 400 mg PO TID PRN (Reason: Pain) Spiriva Respimat 1.25 mcg/actuation Mist 2 puff INHALATION DAILY guaifenesin 100 mg/5 mL Liquid 200 mg PO Q4-6H PRN (Reason: Cough) nicotine 21 mg/24 hr Patch 24 Hour 21 mg transdermal DAILY Qty: 30 0RF prednisone 20 mg tablet 40 mg PO DAILY 5 Days Qty: 10 0RF nitrofurantoin monohyd/m-cryst [Macrobid] 100 mg capsule 100 mg PO BID 7 Days Qty: 14 0RF Rx Instructions: must administer with a meal/food Print Language: Persian
[2024-07-25] MEDS: Albuterol Sulfate 5 MG, Albuterol/Iprat 2.5/0.5MG 3 ML 3 ML INHALE (10:49)
[2024-07-25 10:52] LABS: White Blood Count 9.6 X10*3/uL (4.8-10.8)
[2024-07-25 10:57] LABS: SLIDE REVIEW VERIFIED
[2024-07-25] MEDS: methylPREDNISolone Sod Succ 125 MG/2 ML VIAL IVPUSH (10:58)
[2024-07-25] MEDS: 0.9 % Sodium Chloride 1,000 ML 999 ML IV ×2 (10:58→12:14)
[2024-07-25] MEDS: Naloxone HCl 2 MG/2 ML SYRINGE IVPUSH ×2 (10:58→13:04)
[2024-07-25 10:59] LABS: Alanine Aminotransferase 10 U/L (0-31); Albumin Level 4.1 g/dL (3.5-5.0); Alkaline Phosphatase 62 U/L (39-117); Anion Gap 11 (12-20); Aspartate Amino Transferase 13 U/L (5-31); Bilirubin Total 0.4 mg/dL (0.0-1.0); Blood Urea Nitrogen 11 mg/dL (9-16); Calcium 9.9 mg/dL (8.4-10.2); Carbon Dioxide 36 mmol/L (22-29); Chloride 101 mmol/L (96-108); Creatinine Clr Calc Pharmacy 137.2; Estimated Glomerular Filt Rate > 60; Glucose Random 109 mg/dL (60-115); Potassium 4.5 mmol/L (3.3-5.1); Sodium 143 mmol/L (135-145); Total Protein 7.1 g/dL (6.5-8.0)
[2024-07-25 11:01] LABS: Ethanol < 10 mg/dL
--- NOTE | 2024-07-25 11:04 | PC.NURSE ---
Addendum entered by Mya Celis 07/25/24 11:21: *physical stimuli Original Note: pt remains lethargic. responsive to verbal stimuli only. 22gIV placed in the left upper arm - IVF/narcan administered per provider order. effectiveness pending. pt currently receiving breathing treatment via RT at this time. plan of care ongoing.
--- NOTE | 2024-07-25 11:27 | PC.NURSE ---
pt remains lethargic at this time. pt more responsive to verbal stimuli post IVP narcan administration. pt remains on 2L via NC. respirations remain even/unlabored. plan of care ongoing. call castillo placed within reach.
[2024-07-25 12:30] LABS: Lactic Acid 1.3 mmol/L (0.5-2.0)
[2024-07-25] MEDS: cefTRIAXone sodium 1 GM in 0.9 % Sodium Chloride 50 ML IV (12:31)
--- NOTE | 2024-07-25 12:31 | PC.NURSE ---
pt is a difficult stick - cultures obtained/sent to lab. abx administered per provider order.
--- NOTE | 2024-07-25 13:15 | PC.NURSE ---
delay in PO medication administration at this time d/t pt becoming more lethargic. physical stimuli needed to conversate w/ pt. pt has eyes closed/mumbling during conversation. provider notified/aware. IVP narcan administered per provider order. effectiveness pending. RT bedside obtaining ABG. plan of care ongoing.
--- NOTE | 2024-07-25 13:17 | PC.RT ---
Pt given multiple doses of narcan by RN. PT til not waking up and appears more somnolent than usual. RN requested ABG. ABG results 7.31-68.5-58.9-35.2. MD [place].
[2024-07-25 13:20] LABS: ABG Base Excess 6.6 mmol/L; ABG HCO3 35 mmol/L (22-26); ABG pCO2 69 mmHg (32-45); ABG pH 7.32 (7.35-7.45); ABG pO2 59 mmHg (83-108)
--- NOTE | 2024-07-25 13:42 | PC.NURSE ---
pt remains lethargic in stretcher in the hallway despite previous interventions. pt moved to ED17. removed from 2L via NC and placed on bipap - settings = 16/8 40%. provider bedside assessing pt. report given to MELONY Shafer.
--- NOTE | 2024-07-25 13:46 | PC.NURSE ---
assumed care of pt at 1330, pt started on bipap, resp at bedside. PO meds held until pt is more responsive.
[2024-07-25 14:38] LABS: Appearance Urine Clear; Color Urine Yellow; Glucose Urine UA Negative (Negative); Leukocyte Esterase Urine Large (3+) (Negative); Nitrite Urine Negative (Negative); UMIC TRIGGER UACC YES; Urine Blood Trace (Negative); Urine Ketones Negative (Negative); Urine Protein Negative (Neg-Trace)
[2024-07-25 14:41] LABS: Bacteria Urine None Seen (None Seen); Hyaline Casts Urine 0-2 /LPF (0-2); RBC Urine 0-2 /HPF (0-2); UACC Culture Trigger YES; WBC Urine 21-50 /HPF (0-5)
[2024-07-25] MEDS: Albuterol Sulfate 2.5 MG, Albuterol/Iprat 2.5/0.5MG 3 ML 3 ML INHALE (14:43)
[2024-07-25 14:45] LABS: Amphetamine Screen Urine Not Detected (Not Detect); Barbiturates, Urine Not Detected (Not Detect); Benzodiazepines Screen Urine Not Detected (Not Detect); Buprenorphine Scr Not Detected (Not Detect); Cannabinoid Screen Urine Not Detected (Not Detect); Cocaine Screen Urine Not Detected (Not Detect); Fentanyl, urine Not Detected (Not Detect); Methadone Screen, Urine Not Detected (Not Detect); Opiate Screen Urine Not Detected (Not Detect); Oxycodone Screen Urine Not Detected (Not Detect); Phencyclidine Screen Urine Not Detected (Not Detect)
[2024-07-25 15:03] LABS: ABG Base Excess 7.4 mmol/L; ABG HCO3 36 mmol/L (22-26); ABG pCO2 70 mmHg (32-45); ABG pH 7.32 (7.35-7.45); ABG pO2 66 mmHg (83-108)
--- NOTE | 2024-07-25 15:13 | PC.RT ---
Repeat ABG shows minimal to no improvement on initial bipap settings. RT switched V60 mode to AVAPs. FIO2 increased per MD request. Repeat bipap check completed and documented. Pt is lethargic but arousable. Repeat bronch protocol completed and 5 mg neb ordered and given.
--- NOTE | 2024-07-25 16:22 | PC.NURSE ---
RN-RN report given to Virgen Iglesias PCU, [facility], [place], [place].
[2024-07-25 17:17] LABS: ABG Base Excess 8.3 mmol/L; ABG HCO3 38 mmol/L (22-26); ABG pCO2 73 mmHg (32-45); ABG pH 7.32 (7.35-7.45); ABG pO2 47 mmHg (83-108)
--- NOTE | 2024-07-25 17:20 | PC.RT ---
ABG drawn at 17:08 appears to be a mixed venous and arterial gas. Repeat gas drawn.
[2024-07-25 17:31] LABS: ABG Base Excess 7.5 mmol/L; ABG HCO3 36 mmol/L (22-26); ABG pCO2 65 mmHg (32-45); ABG pH 7.34 (7.35-7.45); ABG pO2 69 mmHg (83-108)
[2024-07-25 17:52] LABS: ABG Refer to POC result
[2024-07-25 17:53] LABS: ABG Refer to POC result
[2024-07-25 17:53] LABS: ABG Refer to POC result
[2024-07-25] MEDS: LORazepam 2 MG/ML VIAL 1 MG IVPUSH (18:10)
--- NOTE | 2024-07-25 18:21 | PC.NURSE ---
junior sales representative requesting medication d/t pt thrashing on stretcher, provider notified. pt resting quietly/some movement from work of breathing, pt medicated per DEC.
== END 2024-07-25 18:34 | disposition short-term general hospital (02) ==
PROVIDERS: Student in an Organized Health Care Education/Training Program; Emergency Provider Emergency Medicine; PCP Internal Medicine
DX: J18.9 Pneumonia, unspecified organism (principal); R42 Dizziness and giddiness; E86.0 Dehydration; J96.20 Acute and chronic respiratory failure, unspecified whether with hypoxia or hypercapnia; Z99.81 Dependence on supplemental oxygen; F60.3 Borderline personality disorder; F63.81 Intermittent explosive disorder; J44.9 Chronic obstructive pulmonary disease, unspecified; F17.210 Nicotine dependence, cigarettes, uncomplicated; Z79.01 Long term (current) use of anticoagulants; Z79.899 Other long term (current) drug therapy
CPT/HCPCS: 36415; 70450; 71046; 80053; 80307; 81001; 82803; 83605; 85025; 87040; 87086; 87147; 93005; 94640; 96361; 96374; 96375; 96376; 99285; J0696; J2060; J2310; J2919

== ENCOUNTER 2024-08-01 14:10 | Emergency (ER) | payer MEDICAID, SELFPAY ==
--- NOTE | ~2024-08-01 | XR_ITS ---
EXAMINATION: XR CHEST CLINICAL INFORMATION: Wheezing.. COMPARISON: None available. TECHNIQUE: 2 views of the chest were obtained. FINDINGS: No significant abnormality is noted involving the heart, lungs, mediastinum, bony thorax or soft tissues. Surgical clips right upper quadrant of abdomen. XR/XR chest 2V IMPRESSION: Unremarkable examination. Electronically signed by: Guillermo Mckeon MD 08/01/2024 03:50 PM EDT RP
--- NOTE | ~2024-08-01 | CT_ITS ---
EXAMINATION: CT HEAD WITHOUT CONTRAST CT CERVICAL SPINE WITHOUT CONTRAST CLINICAL INFORMATION: Fall on blood thinners COMPARISON: Head CT 07/25/2024 TECHNIQUE: A noncontrast CT of the head and a noncontrast CT of the cervical spine with sagittal and coronal reformats. This CT examination was performed using dose optimization techniques as appropriate, variously including the following: *Automated exposure control *Adjustment of mA and/or kV according to patient size (this includes techniques or standardized protocols for targeted exams where dose is matched to indication/reason for exam; i.e. extremities or head) *Use of iterative reconstruction technique DLP: 1272 mGy*cm FINDINGS: No intra-axial or extra-axial hemorrhage. No acute territorial infarct. Ventricles and sulci appear normal. Preservation of barker-white matter differentiation. No mass, mass effect, or midline shift. No fracture. The mastoid air cells and visualized paranasal sinuses are clear. Normal alignment of the cervical spine. No fracture. No prevertebral soft tissue swelling. Mild multilevel degenerative disc disease. CT/CT cervical spine wo IV con IMPRESSION: 1. No acute intracranial abnormality. 2. No cervical spine fracture or traumatic subluxation. Electronically signed by: Subhash Oates MD 08/01/2024 04:11 PM EDT
--- NOTE | ~2024-08-01 | CT_ITS ---
EXAMINATION: CT HEAD WITHOUT CONTRAST CT CERVICAL SPINE WITHOUT CONTRAST CLINICAL INFORMATION: Fall on blood thinners COMPARISON: Head CT 07/25/2024 TECHNIQUE: A noncontrast CT of the head and a noncontrast CT of the cervical spine with sagittal and coronal reformats. This CT examination was performed using dose optimization techniques as appropriate, variously including the following: *Automated exposure control *Adjustment of mA and/or kV according to patient size (this includes techniques or standardized protocols for targeted exams where dose is matched to indication/reason for exam; i.e. extremities or head) *Use of iterative reconstruction technique DLP: 1272 mGy*cm FINDINGS: No intra-axial or extra-axial hemorrhage. No acute territorial infarct. Ventricles and sulci appear normal. Preservation of barker-white matter differentiation. No mass, mass effect, or midline shift. No fracture. The mastoid air cells and visualized paranasal sinuses are clear. Normal alignment of the cervical spine. No fracture. No prevertebral soft tissue swelling. Mild multilevel degenerative disc disease. CT/CT head/brain wo IV con IMPRESSION: 1. No acute intracranial abnormality. 2. No cervical spine fracture or traumatic subluxation. Electronically signed by: Subhash Oates MD 08/01/2024 04:11 PM EDT
[2024-08-01 14:33] VITALS: BP 130/78; PULSE 90; RESP 16; TEMP 36.8; O2SAT 94; BMI 52.4
--- NOTE | 2024-08-01 14:34 | ED_ITS ---
HPI - General Adult General Chief complaint: Psychiatric Symptoms Stated complaint: SI W/PLAN,CALM/COOP @ THIS TIME, ON HOME O2 3LPM Time Seen by Provider: 08/01/24 14:20 Source: patient Mode of arrival: EMS Limitations: no limitations History of Present Illness HPI narrative: This is a 54-year-old woman with a past medical history of chronic hypoxic and hypercapnic respiratory failure due to COPD on 3 L home O2, chronic diastolic CHF, FABIOLA, pulmonary embolism (on Eliquis), bipolar (on lithium) who is brought in by EMS for evaluation of suicidal ideation. Patient reports that she is fed up with her neighbors and has resolved this feeling suicidal. She reports plan to overdose on lithium. She said that she did not in fact overdose. She states that she informed a friend of hers suicidal thoughts and as a result an ambulance was called and she is here. She states no chest pain or difficulty breathing. She states no fevers. She reports chronic cough. She states no abdominal pain, nausea or vomiting. He states no changes in bowel habits or urinary symptoms. She states chronic pain in both of her legs for which she takes gabapentin. She states that she has already taken her gabapentin today and is not due until this evening. She states that she did trip and fall in her kitchen earlier today and hit the back of her head. She states no loss of consciousness. She states no vomiting. She states no neck pain or extremity paresthesias. She states no vision changes. She states no palpitations, lightheadedness or syncope. Related Data Home Medications ?Medication ?Instructions ?Recorded ?Confirmed lithium carbonate 450 mg 450 mg PO TID 05/14/23 07/05/24 tablet,extended release cyanocobalamin (vitamin B-12) 1,000 mcg PO DAILY 06/11/23 07/05/24 1,000 mcg tablet (Vitamin B-12) ipratropium 0.5 mg-albuterol 3 mg 3 ml inhalation RQ6H PRN Shortness 06/11/23 07/05/24 (2.5 mg base)/3 mL nebulization Of Breath Or Wheezing soln cetirizine 10 mg tablet 10 mg PO DAILY PRN Allergy Symptoms 12/19/23 07/05/24 melatonin 3 mg tablet 3 mg PO BEDTIME 12/19/23 07/05/24 cholecalciferol (vitamin D3) 25 25 mcg PO DAILY 02/20/24 07/05/24 mcg (1,000 unit) tablet (Vitamin D3) ferrous sulfate 325 mg (65 mg 325 mg PO DAILY 05/10/24 07/05/24 iron) tablet fluticasone propionate 115 2 puff inhalation BID PRN 05/10/24 07/05/24 mcg-salmeterol 21 mcg/actuation Shortness Of Breath Or Wheezing HFA inhaler (Advair HFA) pantoprazole 20 mg tablet,delayed 40 mg PO DAILY@0630 05/10/24 07/05/24 release albuterol sulfate 2.5 mg/3 mL 2.5 mg inhalation Q4-6H PRN 06/05/24 07/05/24 (0.083 %) solution for nebulization Shortness Of Breath Or Wheezing gabapentin 400 mg capsule 400 mg PO TID PRN Pain 06/05/24 07/05/24 guaifenesin 100 mg/5 mL oral liquid 200 mg PO Q4-6H PRN Cough 06/05/24 07/05/24 tiotropium bromide 1.25 2 puff inhalation DAILY 06/05/24 07/05/24 mcg/actuation mist for inhalation (Spiriva Respimat) Previous Rx's ?Medication ?Instructions ?Recorded clonidine HCl 0.2 mg tablet 0.2 mg PO BEDTIME #30 tabs 03/22/23 olanzapine 10 mg tablet 10 mg PO BEDTIME #30 tabs 03/22/23 ropinirole 1 mg tablet 1 mg PO BEDTIME #30 tabs 03/22/23 apixaban 5 mg tablet (Eliquis) 5 mg PO BID #60 tabs 05/12/24 nicotine 21 mg/24 hr daily 21 mg transdermal DAILY #30 ea 06/07/24 transdermal patch cefuroxime axetil 250 mg tablet 250 mg PO BID 4 days #8 tabs 07/09/24 doxycycline hyclate 100 mg capsule 100 mg PO BID 3 days #6 caps 07/09/24 naloxone 4 mg/actuation nasal 4 mg intranasal Q2M PRN opioid 07/09/24 spray (Narcan) overdose #2 ea nystatin 100,000 unit/mL oral 400,000 unit (4 mL) PO QID #0 mL 07/09/24 suspension nitrofurantoin 100 mg PO BID 7 days #14 caps 07/13/24 monohydrate/macrocrystals 100 mg capsule (Macrobid) prednisone 20 mg tablet 40 mg (2 x 20 mg) PO DAILY 5 days 07/13/24 #10 tabs Allergies Allergy/AdvReac Type Severity Reaction Status Date / Time aspirin Allergy Mild Anaphylaxis Verified 08/01/24 14:36 ampicillin Allergy Rash Verified 08/01/24 14:36 enoxaparin [From Lovenox] Allergy Anaphylaxis Verified 08/01/24 14:36 Penicillins Allergy Anaphylaxis Verified 08/01/24 14:36 latex AdvReac Rash Verified 08/01/24 14:36 Latex, Natural Rubber AdvReac Rash Verified 08/01/24 14:36 seafood AdvReac Anaphylaxis Verified 08/01/24 14:36 Sulfa (Sulfonamide AdvReac Hives Verified 08/01/24 14:36 Antibiotics) Review of Systems 2 Review of Systems: ROS as per HPI [facility] Past Medical History Medical History FABIOLA (obstructive sleep apnea) Asthma Morbid obesity Intentional overdose Acute bronchospasm Bipolar I disorder with depression Overdose on Tylenol Suicide attempt Asthma COPD (chronic obstructive pulmonary disease) Chronic lung disease Neoplasm of parotid gland Depression 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 Drug abuse Bipolar I disorder Post traumatic stress disorder (PTSD) Tobacco use disorder Borderline personality disorder Intermittent explosive disorder Asthma exacerbation in COPD Herpes Tobacco use Bipolar disorder COPD (chronic obstructive pulmonary disease) Surgical History History of ankle surgery History of back surgery Hx of cholecystectomy History of appendectomy Family History Family History Mother COPD (chronic obstructive pulmonary disease) Social History Social History Household Members: None Household Members Other:: So Housing: Apartment Housing Other:: Sleeps on the couch at [facility] house Do you presently have visiting nurse or other home services: Yes ([facility]) Unable to assess alcohol history related to: Unknown Alcohol intake: former Comment: patient has 1:1 staffing Patient Tobacco Use Status: Current everyday Tobacco user Tobacco use type: Cigarette Cigarette Packs Per Day: 3 Cigarettes Per Day: 60.0 Years Smoked: 37 e-Cigarette/Vaping Use: Never Used Second Hand Smoke Exposure: Yes Substance Use Type: Crack/Cocaine, Heroin and IV Drugs Advance Directives: Yes Advance Directives on File: Yes Advance Directives Date on File: 06/17/22 service: No Current occupational status: unemployed and disabled Sexual orientation: Straight/Heterosexual Physical Exam ED Vital Signs: Vital Signs - 24 hr 08/01/24 14:33 08/01/24 14:56 Temperature 98.3 F Pulse Rate 90 90 Respiratory Rate 16 16 Blood Pressure 130/78 Pulse Oximetry 94 Oxygen Delivery Method Nasal Cannula BMI result Body Mass Index 52.4 Gen: NAD, AOx3 HEENT: NCAT, EOMI, normal conjunctiva CV: RRR Pulm: CTAB, no increased work of breathing, few faint scattered expiratory wheezes GI: Soft, NTND, no rebound, guarding or rigidity Neuro: Grossly non focal Medications Administered Discontinued Medications Generic Name Dose Route Start Last Admin Trade Name Freq PRN Reason Stop Dose Admin Albuterol Sulfate 4 puff 08/01/24 14:32 08/01/24 14:51 Albuterol Sulfate 90 Mcg 8 Gm Inhaler INHALE 08/01/24 14:33 4 puff ONCE ONE Administration Medical Decision Making Medical Decision Making MDM Narrative: Differential diagnosis includes, but is not limited to anxiety, depression, suicide ideation. Patient is afebrile and hemodynamically stable on room air. Exam is notable for a few scattered expiratory wheezes for which patient is provided albuterol. Of note, I considered treatment with corticosteroids, but given history of bipolar disorder and initial presentation for suicidal ideation corticosteroids are not provided given concern for potential adverse psychiatric/behavioral effects. I reviewed and interpreted labs including CBC, CMP, salicylate level, acetaminophen level, lithium level and ethanol level, which are noncontributory. Beta hCG is negative. Given patient's history of fall while on anticoagulant medication. CT imaging is obtained. I independently reviewed interpreted patient's CT scan of the head and cervical spine, which demonstrates no acute intracranial hemorrhage or cervical spine fracture. I reviewed radiology impression of diagnostic imaging studies as below. Patient was seen and evaluated by behavioral health specialist, Ellen Juares, we will clear the patient from Behavioral Health aspect and cleared the patient from section 12. On re-examination, patient is well-appearing and in no acute distress. Reports feeling well. She states that she is no longer feeling suicidal.?There is no indication for further emergent evaluation in this otherwise well-appearing patient as above. ?Patient is provided written and verbal instructions, educational materials, recommendations for outpatient follow-up, strict return precautions and teach back is performed. ?Patient states understanding and agreement with plan of care. ?Patient is discharged home in stable and improved condition. Admission/Observation Consideration of admission/observation: Escalation of care including admission/observation considered Consult Healthcare Provider Management of the patient was discussed with: [employer] and Behavioral Health Provider Patient was seen and evaluated by behavioral health specialist, Ellen Juares, we will clear the patient from Behavioral Health aspect and cleared the patient from section 12. Lab Data MDM Lab Attestation statement: I reviewed the patient's lab results. 08/01/24 15:06 08/01/24 15:06 Labs: Lab Results 08/01/24 Range/Units 15:06 WBC 9.6 (4.8-10.8) X10*3/uL RBC 4.95 (4.20-5.50) X10*6/uL Hgb 15.2 (12.0-16.0) g/dl Hct 48.8 H (37.0-47.0) % MCV 98.6 H (80.0-98.0) fL MCH 30.7 (27.0-33.0) pg MCHC 31.1 (31.0-35.0) g/dl RDW 14.3 (11.0-16.0) % Plt Count 198 (160-400) X10*3/uL MPV 10.0 (9.4-12.3) fL Immature Gran % (Auto) 0.5 H (0.0-0.4) % Neut % (Auto) 62.9 (45-73) % Lymph % (Auto) 27.7 (20-40) % [place] % (Auto) 6.4 (2-11) % Eos % (Auto) 1.9 (0-4) % Baso % (Auto) 0.6 (0-2) % Lymph # (Auto) 2.7 (1.2-4.9) X10*3/uL [place] # (Auto) 0.6 (0.1-1.2) X10*3/uL Eos # (Auto) 0.2 (0.0-0.4) X10*3/uL Baso # (Auto) 0.1 (0.0-0.2) X10*3/uL Abs Immat Gran (auto) 0.05 H (0.00-0.03) X10*3/uL Absolute Neuts (auto) 6.1 (2.0-8.3) x10*3/uL Absolute Nucleated RBC 0.000 (0.0-0.012) X10*3/uL Nucleated RBC % (auto) 0.0 (0.0-0.2) /100WBC Sodium 141 (135-145) mmol/L Potassium 4.2 (3.3-5.1) mmol/L Chloride 100 (96-108) mmol/L Carbon Dioxide 35 H (22-29) mmol/L Anion Gap 10 L (12-20) BUN 10 (9-16) mg/dL Creatinine 0.68 (0.5-1.4) mg/dL Estim Creat Clear Calc 133.1 Estimated GFR > 60 Random Glucose 123 H (60-115) mg/dL Calcium 9.9 (8.4-10.2) mg/dL Total Bilirubin 0.3 (0.0-1.0) mg/dL AST 8 (5-31) U/L ALT 11 (0-31) U/L Alkaline Phosphatase 57 (39-117) U/L Total Protein 6.5 (6.5-8.0) g/dL Albumin 4.0 (3.5-5.0) g/dL Beta HCG, Quant < 2 mIU/mL Salicylates < 5.0 L (15-30) mg/dL Acetaminophen < 3 (<30) mcg/mL [place] 1.18 (0.60-1.20) mmol/L Ethyl Alcohol < 10 mg/dL Independent Interpretation I performed an independent interpretation of an: Plain X-Ray and CT Scan Interpretation: I independently reviewed and interpreted patient's CT scan of the head and cervical spine, which demonstrates no acute intracranial hemorrhage or cervical spine fracture. I independently reviewed and interpreted the patient's chest x-ray, which demonstrates no pleural effusion, pneumothorax or focal consolidation Radiology Impression Discussion of test interpretation with radiology: I have reviewed the radiologist's reading. Radiologist Impression: CT/CT head/brain wo IV con IMPRESSION: 1. No acute intracranial abnormality. 2. No cervical spine fracture or traumatic subluxation. Electronically signed by: Subhash Oates MD 08/01/2024 04:11 PM EDT RP Dictated By: Subhash Oates MD Signed By: <Electronically signed by Subhash Oates MD in OV> 08/01/[address]/CT cervical spine wo IV con IMPRESSION: 1. No acute intracranial abnormality. 2. No cervical spine fracture or traumatic subluxation. Electronically signed by: Subhash Oates MD 08/01/2024 04:11 PM EDT RP Dictated By: Subhash Oates MD Signed By: <Electronically signed by Subhash Oates MD in [place]> 08/01/24 1611 XR/XR chest 2V IMPRESSION: Unremarkable examination. Electronically signed by: Guillermo Mckeon MD 08/01/2024 03:50 PM EDT RP Dictated By: Guillermo Mckeon MD Signed By: <Electronically signed by Guillermo Mckeon MD in [place]> 08/01/24 1550 Discharge Plan Discharge Clinical Impression: Suicidal ideation, Acute bronchospasm Patient Disposition: Home, Self-Care Instructions: Bronchospasm (ED), Suicide Prevention (ED) Additional Instructions: You were seen and evaluated in the emergency room. Your vital signs were normal and he did not have fever. ? Your blood work, chest x-ray and CT scans were reassuring. You noted to have some wheezing and so you were treated with albuterol. Please continue taking 4 puffs of albuterol every 4 hours or using 1 nebulizer treatment every 4 hours the next 24 hours. After 24 hours, you may decrease to every 4 hours as needed. You were evaluated by our behavioral health specialist felt comfortable with going home. Please follow-up with your primary care doctor in the next 5-7 days. ? Please return to the emergency room if you develop any worsening symptoms including, but not limited to fever, chest pain, difficulty breathing, severe pain, vomiting, inability to eat/drink, anxiety, depression or thoughts of hurting herself or others. Prescriptions: No Action ropinirole 1 mg Tablet 1 mg PO BEDTIME Qty: 30 0RF olanzapine 10 mg Tablet 10 mg PO BEDTIME Qty: 30 0RF clonidine HCl 0.2 mg Tablet 0.2 mg PO BEDTIME Qty: 30 0RF Protocol: Hold for SBP< HOLD for SBP < : 90 cetirizine 10 mg Tablet 10 mg PO DAILY PRN (Reason: Allergy Symptoms) melatonin 3 mg Tablet 3 mg PO BEDTIME cholecalciferol (vitamin D3) [Vitamin D3] 25 mcg (1,000 unit) tablet 25 mcg PO DAILY ferrous sulfate 325 mg (65 mg iron) Tablet 325 mg PO DAILY fluticasone propion-salmeterol [Advair HFA] 115-21 mcg/actuation Hfa Aerosol Inhaler 2 puff INHALATION BID PRN (Reason: Shortness Of Breath Or Wheezing) pantoprazole 20 mg Tablet,Delayed Release (Dr/Ec) 40 mg PO DAILY@0630 Eliquis 5 mg Tablet 5 mg PO BID Qty: 60 0RF cefuroxime axetil 250 mg Tablet 250 mg PO BID 4 Days Qty: 8 0RF nystatin 100,000 unit/mL Suspension 400,000 unit PO QID Qty: 0 0RF doxycycline hyclate 100 mg capsule 100 mg PO BID 3 Days Qty: 6 0RF naloxone [Narcan] 4 mg/actuation spray,non-aerosol 4 mg intranasal Q2M PRN (Reason: opioid overdose) Qty: 2 0RF Rx Instructions: spray 1 dose into ONE nostril; alternate nostrils w each dose until help arrives lithium carbonate 450 mg tablet extended release 450 mg PO TID cyanocobalamin (vitamin B-12) [Vitamin B-12] 1,000 mcg tablet 1,000 mcg PO DAILY ipratropium-albuterol 0.5 mg-3 mg(2.5 mg base)/3 mL solution for nebulization 3 ml inhalation RQ6H PRN (Reason: Shortness Of Breath Or Wheezing) albuterol sulfate 2.5 mg /3 mL (0.083 %) Solution For Nebulization 2.5 mg INHALATION Q4-6H PRN (Reason: Shortness Of Breath Or Wheezing) gabapentin 400 mg Capsule 400 mg PO TID PRN (Reason: Pain) Spiriva Respimat 1.25 mcg/actuation Mist 2 puff INHALATION DAILY guaifenesin 100 mg/5 mL Liquid 200 mg PO Q4-6H PRN (Reason: Cough) nicotine 21 mg/24 hr Patch 24 Hour 21 mg transdermal DAILY Qty: 30 0RF prednisone 20 mg tablet 40 mg PO DAILY 5 Days Qty: 10 0RF nitrofurantoin monohyd/m-cryst [Macrobid] 100 mg capsule 100 mg PO BID 7 Days Qty: 14 0RF Rx Instructions: must administer with a meal/food Print Language: Belarusian
[2024-08-01] MEDS: Albuterol Sulfate 90 MCG 8 GM INHALER 4 PUFF INHALE ×2 (14:51→17:59)
[2024-08-01 14:56] VITALS: PULSE 90; RESP 16; O2SAT 93
[2024-08-01 15:12] LABS: MANUAL DIFF FLAG NO
[2024-08-01 15:20] LABS: Basophils Absolute Auto 0.1 X10*3/uL (0.0-0.2); Basophils Percent Auto 0.6 % (0-2); Eosinophils Absolute Auto 0.2 X10*3/uL (0.0-0.4); Eosinophils Percent Auto 1.9 % (0-4); Hematocrit 48.8 % (37.0-47.0); Hemoglobin 15.2 g/dl (12.0-16.0); Imm Gran Abs Auto 0.05 X10*3/uL (0.00-0.03); Imm Gran Pct Auto 0.5 % (0.0-0.4); Lithium 1.18 mmol/L (0.60-1.20); Lymphocytes Absolute Auto 2.7 X10*3/uL (1.2-4.9); Lymphocytes Percent Auto 27.7 % (20-40); Mean Corpuscular HGB Conc 31.1 g/dl (31.0-35.0); Mean Corpuscular Hemoglobin 30.7 pg (27.0-33.0); Mean Corpuscular Volume 98.6 fL (80.0-98.0); Monocytes Absolute Auto 0.6 X10*3/uL (0.1-1.2); Monocytes Percent Auto 6.4 % (2-11); Neutrophils Absolute Auto 6.1 x10*3/uL (2.0-8.3); Neutrophils Percent Auto 62.9 % (45-73); Platelet Count 198 X10*3/uL (160-400); Red Blood Count 4.95 X10*6/uL (4.20-5.50); Red Cell Distribution Width 14.3 % (11.0-16.0); White Blood Count 9.6 X10*3/uL (4.8-10.8)
[2024-08-01 15:27] LABS: Acetaminophen LAB < 3 mcg/mL (<30); Salicylate < 5.0 mg/dL (15-30)
[2024-08-01 15:35] LABS: Alanine Aminotransferase 11 U/L (0-31); Alkaline Phosphatase 57 U/L (39-117); Anion Gap 10 (12-20); Aspartate Amino Transferase 8 U/L (5-31); Bilirubin Total 0.3 mg/dL (0.0-1.0); Blood Urea Nitrogen 10 mg/dL (9-16); Calcium 9.9 mg/dL (8.4-10.2); Carbon Dioxide 35 mmol/L (22-29); Chloride 100 mmol/L (96-108); Creatinine Clr Calc Pharmacy 133.1; Estimated Glomerular Filt Rate > 60; Ethanol < 10 mg/dL; Glucose Random 123 mg/dL (60-115); HCG Quantitative < 2 mIU/mL; Potassium 4.2 mmol/L (3.3-5.1); Sodium 141 mmol/L (135-145); Total Protein 6.5 g/dL (6.5-8.0)
[2024-08-01 17:59] VITALS: PULSE 80; RESP 15; O2SAT 94
[2024-08-01 18:00] VITALS: BP 130/60; PULSE 97; RESP 16; TEMP 36.7; O2SAT 91
--- NOTE | 2024-08-01 19:37 | MHC.CARE ---
Pt cleared by CARE team, plan is to d/c home to continue with community providers
--- NOTE | 2024-08-01 20:31 | PC.NURSE ---
Pt a&ox4, no signs of distress Pt denies SI/HI/ or plan Pt requested and given food. Plan of care ongoing.
[2024-08-01 20:33] VITALS: BP 125/69; PULSE 91; RESP 18; TEMP 37.2; O2SAT 91
[2024-08-01 20:37] VITALS: BP 125/69; PULSE 91; RESP 18; TEMP 37.2; O2SAT 91
== END 2024-08-01 20:40 | disposition home or self-care (01) ==
PROVIDERS: Emergency Provider Emergency Medicine; PCP Internal Medicine
DX: R45.851 Suicidal ideations (principal); J98.01 Acute bronchospasm; Z91.81 History of falling; F31.9 Bipolar disorder, unspecified; F63.81 Intermittent explosive disorder; F60.3 Borderline personality disorder; F43.10 Post-traumatic stress disorder, unspecified; Z91.51 Personal history of suicidal behavior; F17.210 Nicotine dependence, cigarettes, uncomplicated; Z79.899 Other long term (current) drug therapy
CPT/HCPCS: 36415; 70450; 71046; 72125; 80053; 80143; 80178; 80179; 80307; 84702; 85025; 94640; 94664; 99285; S9485

== ENCOUNTER 2024-08-10 16:01 | Inpatient (IN) | payer MEDICAID, SELFPAY ==
[2024-08-10] VITALS (7 sets, daily range): BP systolic 123–129; BP diastolic 74–81; PULSE 84–95; RESP 18–24; TEMP 36.6; O2SAT 88–92; BMI 40.9
--- NOTE | ~2024-08-10 | XR_ITS ---
EXAMINATION: XR CHEST CLINICAL INFORMATION: Dyspnea COMPARISON: Chest x-ray on 08/01/2024 TECHNIQUE: Frontal view of the chest was obtained. FINDINGS: The cardiac silhouette is normal. There is mild diffuse bronchial wall thickening. There are no areas of consolidation. There are no pleural effusions or pneumothoraces. The bones and soft tissues are unremarkable for the patient's age. XR/XR chest 1V IMPRESSION: Bronchial wall thickening may be infectious and/or inflammatory in etiology. Electronically signed by: Joelel Aguero MD 08/10/2024 06:59 PM EDT
--- NOTE | 2024-08-10 16:08 | ED.GENADULT ---
HPI - General Adult General Chief complaint: Dyspnea Stated complaint: SOB Time Seen by Provider: 08/10/24 16:07 History of Present Illness ED Provider: Papo ROBLERO narrative: The patient is a 54-year-old female with a long history of asthma and ER presentations for shortness of breath and hospitalizations for shortness of breath presents complaining of shortness of breath for the last few days. The patient was last in the emergency room 9 days ago for shortness of breath. At that time she required BiPAP. There were no ICU beds available here at the hospital so she was transferred to a hospital in [facility] by ambulance. The patient says she has been home for about 5 days. She says that about 3 days ago she started to develop shortness of breath again. This has been associated with a significant girlfriend sputum production. No definite fever but she says she sometimes feels clammy. Today she felt so short of breath she called an ambulance. She is normally on home oxygen at 3 L nasal cannula. She feels she has some increased swelling in both of her legs. Related Data Home Medications ?Medication ?Instructions ?Recorded ?Confirmed lithium carbonate 450 mg 450 mg PO TID 05/14/23 07/05/24 tablet,extended release cyanocobalamin (vitamin B-12) 1,000 mcg PO DAILY 06/11/23 07/05/24 1,000 mcg tablet (Vitamin B-12) ipratropium 0.5 mg-albuterol 3 mg 3 ml inhalation RQ6H PRN Shortness 06/11/23 07/05/24 (2.5 mg base)/3 mL nebulization Of Breath Or Wheezing soln cetirizine 10 mg tablet 10 mg PO DAILY PRN Allergy Symptoms 12/19/23 07/05/24 melatonin 3 mg tablet 3 mg PO BEDTIME 12/19/23 07/05/24 cholecalciferol (vitamin D3) 25 25 mcg PO DAILY 02/20/24 07/05/24 mcg (1,000 unit) tablet (Vitamin D3) ferrous sulfate 325 mg (65 mg 325 mg PO DAILY 05/10/24 07/05/24 iron) tablet fluticasone propionate 115 2 puff inhalation BID PRN 05/10/24 07/05/24 mcg-salmeterol 21 mcg/actuation Shortness Of Breath Or Wheezing HFA inhaler (Advair HFA) pantoprazole 20 mg tablet,delayed 40 mg PO DAILY@0630 05/10/24 07/05/24 release albuterol sulfate 2.5 mg/3 mL 2.5 mg inhalation Q4-6H PRN 06/05/24 07/05/24 (0.083 %) solution for nebulization Shortness Of Breath Or Wheezing gabapentin 400 mg capsule 400 mg PO TID PRN Pain 06/05/24 07/05/24 guaifenesin 100 mg/5 mL oral liquid 200 mg PO Q4-6H PRN Cough 06/05/24 07/05/24 tiotropium bromide 1.25 2 puff inhalation DAILY 06/05/24 07/05/24 mcg/actuation mist for inhalation (Spiriva Respimat) Previous Rx's ?Medication ?Instructions ?Recorded clonidine HCl 0.2 mg tablet 0.2 mg PO BEDTIME #30 tabs 03/22/23 olanzapine 10 mg tablet 10 mg PO BEDTIME #30 tabs 03/22/23 ropinirole 1 mg tablet 1 mg PO BEDTIME #30 tabs 03/22/23 apixaban 5 mg tablet (Eliquis) 5 mg PO BID #60 tabs 05/12/24 nicotine 21 mg/24 hr daily 21 mg transdermal DAILY #30 ea 06/07/24 transdermal patch cefuroxime axetil 250 mg tablet 250 mg PO BID 4 days #8 tabs 07/09/24 doxycycline hyclate 100 mg capsule 100 mg PO BID 3 days #6 caps 07/09/24 naloxone 4 mg/actuation nasal 4 mg intranasal Q2M PRN opioid 07/09/24 spray (Narcan) overdose #2 ea nystatin 100,000 unit/mL oral 400,000 unit (4 mL) PO QID #0 mL 07/09/24 suspension nitrofurantoin 100 mg PO BID 7 days #14 caps 07/13/24 monohydrate/macrocrystals 100 mg capsule (Macrobid) prednisone 20 mg tablet 40 mg (2 x 20 mg) PO DAILY 5 days 07/13/24 #10 tabs Allergies Allergy/AdvReac Type Severity Reaction Status Date / Time aspirin Allergy Mild Anaphylaxis Verified 08/10/24 16:10 ampicillin Allergy Rash Verified 08/10/24 16:10 enoxaparin [From Lovenox] Allergy Anaphylaxis Verified 08/10/24 16:10 Penicillins Allergy Anaphylaxis Verified 08/10/24 16:10 latex AdvReac Rash Verified 08/10/24 16:10 Latex, Natural Rubber AdvReac Rash Verified 08/10/24 16:10 seafood AdvReac Anaphylaxis Verified 08/10/24 16:10 Sulfa (Sulfonamide AdvReac Hives Verified 08/10/24 16:10 Antibiotics) Review of Systems Review of Systems: Yes all other systems are reviewed and are negative COUNTS INCLUDE 234 BEDS AT THE [facility] Past Medical History Medical History FABIOLA (obstructive sleep apnea) Asthma Morbid obesity Intentional overdose Acute bronchospasm Bipolar I disorder with depression Overdose on Tylenol Suicide attempt Asthma COPD (chronic obstructive pulmonary disease) Chronic lung disease Neoplasm of parotid gland Depression 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 Drug abuse Bipolar I disorder Post traumatic stress disorder (PTSD) Tobacco use disorder Borderline personality disorder Intermittent explosive disorder Asthma exacerbation in COPD Herpes Tobacco use Bipolar disorder COPD (chronic obstructive pulmonary disease) Surgical History History of ankle surgery History of back surgery Hx of cholecystectomy History of appendectomy Family History Family History Mother COPD (chronic obstructive pulmonary disease) Social History Social History Household Members: None Household Members Other:: So Housing: Apartment Housing Other:: Sleeps on the couch at [facility] house Do you presently have visiting nurse or other home services: Yes (Faustino) Unable to assess alcohol history related to: Unknown Alcohol intake: former Comment: patient has 1:1 staffing Patient Tobacco Use Status: Current everyday Tobacco user Tobacco use type: Cigarette Cigarette Packs Per Day: 3 Cigarettes Per Day: 60.0 Years Smoked: 37 e-Cigarette/Vaping Use: Never Used Second Hand Smoke Exposure: Yes Substance Use Type: Crack/Cocaine, Heroin and IV Drugs Advance Directives: Yes Advance Directives on File: Yes Advance Directives Date on File: 06/17/22 Do you have a plan to hurt others: No Plan service: No Current occupational status: unemployed and disabled Sexual orientation: Straight/Heterosexual Physical Exam ED Vital Signs: Vital Signs - 24 hr 08/10/24 16:09 10/11/24 16:30 08/10/24 16:53 Temperature 97.9 F 97.9 F Pulse Rate 95 95 89 Respiratory Rate 18 24 H 24 H Blood Pressure 129/81 Pulse Oximetry 92 92 Oxygen Delivery Method Nasal Cannula Nasal Cannula Oxygen Flow Rate 4 08/10/24 17:40 08/10/24 18:06 Temperature Pulse Rate Respiratory Rate 23 H 19 Blood Pressure Pulse Oximetry Oxygen Delivery Method Oxygen Flow Rate BMI result Body Mass Index 40.9 Const Other: The patient is awake and alert. She looks mildly short of breath. She is pleasant and cooperative, mental status is normal. HENMT Other: Face is symmetrical, mucous membranes moist Eyes General: appearance normal, both eyes and all related structures Neck Neck: Yes no JVD Resp Other: Mild increased work of breathing. Inspiratory and expiratory wheezing bilaterally. Cardio Rate: regular rate Rhythm: regular rhythm Heart sounds: S1 normal heart sound present and S2 normal heart sound present GI Other: Abdomen is soft and nontender Skin Other: Skin is dry and unremarkable Neuro Other: The patient is awake and alert with a normal mental status. Cranial nerves are grossly intact. She moves her extremities normally and symmetrically. Extrem Other: Mild symmetrical bilateral lower extremity edema. Medications Administered Generic Name Dose Route Start Last Admin Trade Name Freq PRN Reason Stop Dose Admin Albuterol/Ipratropium 3 ml 08/10/24 20:00 08/10/24 20:58 Albuterol/Iprat 2.5/0.5mg 3 Ml Ampul.Neb INHALE 3 ml RQ4H WHILE AWAKE TEJA Administration Sodium Chloride 3 ml 08/11/24 00:00 08/10/24 23:59 0.9 % Sodium Chloride Flush 3 Ml Syringe IVFLUSH 3 ml QSHIFT TEJA Administration Discontinued Medications Generic Name Dose Route Start Last Admin Trade Name Freq PRN Reason Stop Dose Admin Albuterol Sulfate 7.5 mg/ 0 mg 08/10/24 16:49 08/10/24 16:52 Albuterol/Ipratropium 3 ml INHALE 08/10/24 16:50 1 each ONCE ONE Administration Magnesium Sulfate 2 gm in 50 mls @ 150 mls/hr 08/10/24 16:14 08/10/24 17:27 Magnesium Sulfate/H2o IV 08/10/24 16:33 Infused ONCE ONE Infusion Azithromycin 500 mg/ Sodium 250 mls @ 125 mls/hr 08/10/24 19:41 08/10/24 22:06 Chloride IV 08/10/24 21:40 Infused ONCE ONE Infusion Medical Decision Making Medical Decision Making [facility] Narrative: The patient is a 54-year-old with a history of significant asthma/COPD who presents with worsening shortness of breath and bilateral wheezes on exam. She had an increased oxygen requirement. She had received 125 mg of IM methylprednisolone in the pre-hospital setting. She was given bronchodilator treatments and IV magnesium. She was also given IV azithromycin. Her chest x-ray is clear and there is no sign of pneumonia. She is not septic. Ultimately respiratory therapy felt that she would benefit from BiPAP and so she was placed on BiPAP as well. The patient is well known to the hospital. She will be admitted for further care. Lab Data 08/10/24 16:38 08/10/24 18:30 Labs: Lab Results 08/10/24 08/10/24 08/10/24 Range/Units 16:38 16:42 18:30 WBC 9.1 (4.8-10.8) X10*3/uL RBC 4.97 (4.20-5.50) X10*6/uL Hgb 15.8 (12.0-16.0) g/dl Hct 48.5 H (37.0-47.0) % MCV 97.6 (80.0-98.0) fL MCH 31.8 (27.0-33.0) pg MCHC 32.6 (31.0-35.0) g/dl RDW 14.2 (11.0-16.0) % Plt Count 236 (160-400) X10*3/uL MPV 10.7 (9.4-12.3) fL Immature Gran % (Auto) 0.3 (0.0-0.4) % Neut % (Auto) 56.9 (45-73) % Lymph % (Auto) 33.4 (20-40) % Med[place] % (Auto) 6.2 (2-11) % Eos % (Auto) 2.5 (0-4) % Baso % (Auto) 0.7 (0-2) % Lymph # (Auto) 3.0 (1.2-4.9) X10*3/uL [place] # (Auto) 0.6 (0.1-1.2) X10*3/uL Eos # (Auto) 0.2 (0.0-0.4) X10*3/uL Baso # (Auto) 0.1 (0.0-0.2) X10*3/uL Abs Immat Gran (auto) 0.03 (0.00-0.03) X10*3/uL Absolute Neuts (auto) 5.2 (2.0-8.3) x10*3/uL Absolute Nucleated RBC 0.000 (0.0-0.012) X10*3/uL Nucleated RBC % (auto) 0.0 (0.0-0.2) /100WBC VBG pH 7.38 (7.32-7.43) VBG pCO2 60 mmHg VBG pO2 103 mmHg VBG HCO3 36 H (22-26) mmol/L VBG O2 Saturation 99.0 % VBG Base Excess 8.7 mmol/L Sodium 141 (135-145) mmol/L Potassium 4.1 (3.3-5.1) mmol/L Chloride 100 (96-108) mmol/L Carbon Dioxide 35 H (22-29) mmol/L Anion Gap 10 L (12-20) BUN 6 L (9-16) mg/dL Creatinine 0.67 (0.5-1.4) mg/dL Estim Creat Clear Calc 120.8 Estimated GFR > 60 Random Glucose 121 H (60-115) mg/dL Calcium 9.8 (8.4-10.2) mg/dL Magnesium 2.5 (1.6-2.6) mg/dL Total Bilirubin 0.3 (0.0-1.0) mg/dL Direct Bilirubin 0.1 (0.0-0.5) mg/dL AST 10 (5-31) U/L ALT 12 (0-31) U/L Alkaline Phosphatase 65 (39-117) U/L C-Reactive Protein 0.35 (< or = 0.50) mg/dL B-Natriuretic Peptide 14 (<100) pg/mL Total Protein 6.7 (6.5-8.0) g/dL Albumin 4.2 (3.5-5.0) g/dL Influenza Type A (PCR) NEGATIVE (Negative) Influenza Type B (PCR) NEGATIVE (Negative) RSV RNA Qual (PCR) NEGATIVE (Negative) SARS-CoV-2 RNA (RT-PCR) NEGATIVE (Negative) Independent Interpretation I performed an independent interpretation of an: EKG Interpretation: EKG at 16:22 shows normal sinus rhythm at 92 bpm, no definite acute ischemic changes. Intervals are normal. Critical Care Time Critical Care Time Critical Care Time: Yes Total Critical Care Time: 35 Attestation: The patient was critically ill with a high probability of imminent or life-threatening deterioration. ?I spent greater than 30 minutes of discontinuous time evaluating the patient, delivering critical care at the bedside, discussing evaluating data with consultants. ?Critical care time does not include time spent performing separately billable procedures or teaching. ?Time spent performing critical care with 35 minutes. Discharge Plan Discharge Clinical Impression: Acute exacerbation of COPD with asthma Patient Disposition: Admitted As Inpatient
--- NOTE | 2024-08-10 16:13 | ECG_ITS ---
Test Reason : dyspnea Blood Pressure : / mmHG Vent. Rate : 092 BPM Atrial Rate : 092 BPM P-R Int : 142 ms QRS Dur : 086 ms QT Int : 360 ms P-R-T Axes : 023 021 012 degrees QTc Int : 445 ms Normal sinus rhythm Septal infarct , age undetermined Abnormal ECG When compared with ECG of 25-JUL-2024 10:31, No significant change was found Referred By: Geovanni Barros Electronically Signed By:VAIBHAV KILLIAN MD
[2024-08-10] MEDS: Magnesium Sulfate/H2O 2 GM/50 ML PIGGYBACK IV (16:28)
[2024-08-10 16:41] LABS: MANUAL DIFF FLAG NO
[2024-08-10 16:45] LABS: VBG Base Excess 8.7 mmol/L; VBG HCO3 36 mmol/L (22-26); VBG pCO2 60 mmHg; VBG pH 7.38 (7.32-7.43); VBG pO2 103 mmHg
[2024-08-10 16:46] LABS: Venous Blood Gas Refer to POC result
[2024-08-10] MEDS: Albuterol Sulfate 7.5 MG, Albuterol/Iprat 2.5/0.5MG 3 ML 3 ML INHALE (16:52)
[2024-08-10 16:54] LABS: Basophils Absolute Auto 0.1 X10*3/uL (0.0-0.2); Basophils Percent Auto 0.7 % (0-2); Eosinophils Absolute Auto 0.2 X10*3/uL (0.0-0.4); Eosinophils Percent Auto 2.5 % (0-4); Hematocrit 48.5 % (37.0-47.0); Hemoglobin 15.8 g/dl (12.0-16.0); Imm Gran Abs Auto 0.03 X10*3/uL (0.00-0.03); Imm Gran Pct Auto 0.3 % (0.0-0.4); Lymphocytes Percent Auto 33.4 % (20-40); Mean Corpuscular HGB Conc 32.6 g/dl (31.0-35.0); Mean Corpuscular Hemoglobin 31.8 pg (27.0-33.0); Mean Corpuscular Volume 97.6 fL (80.0-98.0); Mean Platelet Volume 10.7 fL (9.4-12.3); Monocytes Absolute Auto 0.6 X10*3/uL (0.1-1.2); Monocytes Percent Auto 6.2 % (2-11); Neutrophils Absolute Auto 5.2 x10*3/uL (2.0-8.3); Neutrophils Percent Auto 56.9 % (45-73); Platelet Count 236 X10*3/uL (160-400); Red Blood Count 4.97 X10*6/uL (4.20-5.50); Red Cell Distribution Width 14.2 % (11.0-16.0); White Blood Count 9.1 X10*3/uL (4.8-10.8)
[2024-08-10 17:10] LABS: B Type Natriuretic Peptide 14 pg/mL (<100)
[2024-08-10 17:34] LABS: Influenza A PCR NEGATIVE (Negative); Influenza B PCR NEGATIVE (Negative); Resp Syncy Virus RNA Qual PCR NEGATIVE (Negative); SARS COV2 PCR INHOUSE NEGATIVE (Negative)
--- NOTE | 2024-08-10 18:45 | PC.NURSE ---
assumed care of this patient at 1845; patient resting comfortably on CPAP at this time with no other needs. Will continue to monitor
[2024-08-10 18:56] LABS: Alanine Aminotransferase 12 U/L (0-31); Albumin Level 4.2 g/dL (3.5-5.0); Alkaline Phosphatase 65 U/L (39-117); Anion Gap 10 (12-20); Aspartate Amino Transferase 10 U/L (5-31); Bilirubin Direct 0.1 mg/dL (0.0-0.5); Bilirubin Total 0.3 mg/dL (0.0-1.0); Blood Urea Nitrogen 6 mg/dL (9-16); C Reactive Protein 0.35 mg/dL (< or = 0.50); Calcium 9.8 mg/dL (8.4-10.2); Carbon Dioxide 35 mmol/L (22-29); Chloride 100 mmol/L (96-108); Creatinine Clr Calc Pharmacy 120.8; Estimated Glomerular Filt Rate > 60; Glucose Random 121 mg/dL (60-115); Magnesium 2.5 mg/dL (1.6-2.6); Potassium 4.1 mmol/L (3.3-5.1); Sodium 141 mmol/L (135-145); Total Protein 6.7 g/dL (6.5-8.0)
--- NOTE | 2024-08-10 19:53 | PM.IMHP ---
History of Present Illness Date of Service: 08/10/24 Attending physician on admission: Linda Chauhan Chief Complaint: SOB, WAYNE Pt is a 54-year-old female with a PMH significant for?chronic hypoxic and hypercapnic respiratory failure secondary to COPD on 3L home O2, HFpEF, hx of PE on Eliquis, FABIOLA on BiPAP, fibromyalgia, osteoarthritis, hx of recurrent UTI, polysubstance use disorder, borderline personality disorder, bipolar disorder, depression and anxiety with previous suicide attempts who presents to the ED with?SOB and WAYNE since earlier this morning. Pt is well known to the facility with multiple prior admissions to the hospital for COPD exacerbations. Was last seen in the ED 9 days prior on 08/01 for similar symptoms that required rescue BiPAP. No ICU beds were available here at [facility] at that time, so patient was transferred to [facility] in [place] where she was discharged approximally 4 days ago. Patient reports earlier this morning woke up with increased shortness a breath where she ?could not breathe at all, despite inhaler use. Apparently had run out of home O2 two days prior. Chronic mostly nonproductive cough at baseline. Denies fever, chills. No nausea, vomiting, or abdominal pain. Denies chest pain/pressure, palpitations. Patient continues to actively smoke, though states she is now down to 3 cigarettes a day. In the ED pt was tachycardic up to 95, tachypneic up to 24, and noted to be desatting as low as 85% while on home 3L O2. Labs were significant for bicarb 35, otherwise grossly unremarkable and around baseline for patient. No leukocytosis. Stable H&H. No significant electrolyte abnormalities. Renal and hepatic function WNL. BNP 14. Tested negative for flu, COVID, RSV. VBG with pH 7.38, pCO2 60, and bicarb 36. CXR showed bronchial wall thickening either infectious and or inflammatory in etiology, though negative for focal consolidation. EKG demonstrated normal sinus rhythm without significant ischemic changes. Pt was treated with Solu-Medrol 125 mg IM and DuoNeb by EMS, and treated with Mag sulfate, DuoNebs, and azithromycin in the ED. Pt will be admitted to the hospital for treatment and further evaluation of acute on chronic hypoxic and hypercapnic respiratory failure in the setting of acute COPD exacerbation. 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 Drug abuse Bipolar I disorder Post traumatic stress disorder (PTSD) Tobacco use disorder Borderline personality disorder Intermittent explosive disorder Asthma exacerbation in COPD Herpes Tobacco use Bipolar disorder COPD (chronic obstructive pulmonary disease) Family History Mother COPD (chronic obstructive pulmonary disease) Surgical History History of ankle surgery History of back surgery Hx of cholecystectomy History of appendectomy Social History Household Members: None Household Members Other:: So Housing: Apartment Housing Other:: Sleeps on the couch at [facility] house Do you presently have visiting nurse or other home services: Yes (Faustino) Unable to assess alcohol history related to: Unknown Alcohol intake: former Comment: patient has 1:1 staffing Patient Tobacco Use Status: Current everyday Tobacco user Tobacco use type: Cigarette Cigarette Packs Per Day: 3 Cigarettes Per Day: 60.0 Years Smoked: 37 e-Cigarette/Vaping Use: Never Used Second Hand Smoke Exposure: Yes Substance Use Type: Crack/Cocaine, Heroin and IV Drugs Advance Directives: Yes Advance Directives on File: Yes Advance Directives Date on File: 06/17/22 Do you have a plan to hurt others: No Plan service: No Current occupational status: unemployed and disabled Sexual orientation: Straight/Heterosexual Meds Allergies Allergy/AdvReac Type Severity Reaction Status Date / Time aspirin Allergy Mild Anaphylaxis Verified 08/10/24 16:10 ampicillin Allergy Rash Verified 08/10/24 16:10 enoxaparin [From Lovenox] Allergy Anaphylaxis Verified 08/10/24 16:10 Penicillins Allergy Anaphylaxis Verified 08/10/24 16:10 latex AdvReac Rash Verified 08/10/24 16:10 Latex, Natural Rubber AdvReac Rash Verified 08/10/24 16:10 seafood AdvReac Anaphylaxis Verified 08/10/24 16:10 Sulfa (Sulfonamide AdvReac Hives Verified 08/10/24 16:10 Antibiotics) Active Medications: Current Medications Acetaminophen (Acetaminophen 325 Mg Tablet) 650 mg PO Q6H PRN PRN Reason: Pain, Mild (Pain Scale 1-3), fever or headache Albuterol/Ipratropium (Albuterol/Iprat 2.5/0.5mg 3 Ml Ampul.Neb) 3 ml INHALE RQ4H WHILE AWAKE TEJA Albuterol/Ipratropium (Albuterol/Iprat 2.5/0.5mg 3 Ml Ampul.Neb) 3 ml INHALE Q4H PRN PRN Reason: Wheezing Calcium Carbonate (Calcium Carbonate 750 Mg Tab.Chew) 750 mg PO Q4H PRN PRN Reason: Heartburn Azithromycin 500 mg/ Sodium (Chloride) 250 mls @ 125 mls/hr IV ONCE ONE Stop: 08/10/24 21:40 Magnesium Hydroxide (Milk Of Magnesia 30 Ml Oral.Susp) 30 ml PO DAILY PRN PRN Reason: Constipation Melatonin (Melatonin 3 Mg Tablet) 6 mg PO BEDTIME PRN PRN Reason: Insomnia Ondansetron HCl (Ondansetron Hcl 4 Mg/2 Ml Vial) 4 mg IVPUSH Q8H PRN PRN Reason: Nausea and Vomiting Prednisone (Prednisone 20 Mg Tablet) 40 mg PO DAILY TEJA Sodium Chloride (0.9 % Sodium Chloride Flush 3 Ml Syringe) 3 ml IVFLUSH QSHIFT [facility] Home Medications ?Medication ?Instructions ?Recorded ?Confirmed ?Last Taken ?Type lithium carbonate 450 mg 450 mg PO TID 05/14/23 07/05/24 07/04/24 History tablet,extended release cyanocobalamin (vitamin B-12) 1,000 mcg PO DAILY 06/11/23 07/05/24 07/04/24 History 1,000 mcg tablet (Vitamin B-12) ipratropium 0.5 mg-albuterol 3 mg 3 ml inhalation RQ6H PRN Shortness 06/11/23 07/05/24 07/04/24 History (2.5 mg base)/3 mL nebulization Of Breath Or Wheezing soln cetirizine 10 mg tablet 10 mg PO DAILY PRN Allergy Symptoms 12/19/23 07/05/24 07/04/24 History melatonin 3 mg tablet 3 mg PO BEDTIME 12/19/23 07/05/24 07/04/24 History cholecalciferol (vitamin D3) 25 25 mcg PO DAILY 02/20/24 07/05/24 07/04/24 History mcg (1,000 unit) tablet (Vitamin D3) ferrous sulfate 325 mg (65 mg 325 mg PO DAILY 05/10/24 07/05/24 07/04/24 History iron) tablet fluticasone propionate 115 2 puff inhalation BID PRN 05/10/24 07/05/24 07/04/24 History mcg-salmeterol 21 mcg/actuation Shortness Of Breath Or Wheezing HFA inhaler (Advair HFA) pantoprazole 20 mg tablet,delayed 40 mg PO DAILY@0630 05/10/24 07/05/24 07/04/24 History release albuterol sulfate 2.5 mg/3 mL 2.5 mg inhalation Q4-6H PRN 06/05/24 07/05/24 07/04/24 History (0.083 %) solution for nebulization Shortness Of Breath Or Wheezing gabapentin 400 mg capsule 400 mg PO TID PRN Pain 06/05/24 07/05/24 07/04/24 History guaifenesin 100 mg/5 mL oral liquid 200 mg PO Q4-6H PRN Cough 06/05/24 07/05/24 07/04/24 History tiotropium bromide 1.25 2 puff inhalation DAILY 06/05/24 07/05/24 07/04/24 History mcg/actuation mist for inhalation (Spiriva Respimat) Physical Exam Vital Signs and Narrative: Vital Signs: Last Vital Signs Temp 97.9 F 08/10/24 16:30 Pulse 84 08/10/24 19:40 Resp 22 H 08/10/24 19:40 BP 123/74 08/10/24 19:40 Pulse Ox 92 08/10/24 19:40 O2 Del Method Nasal Cannula 08/10/24 19:40 O2 Flow Rate 9 08/10/24 19:40 Oxygen Flow Rate 4 08/10/24 16:09 BMI result Body Mass Index 40.9 Constitutional: Alert, in no acute distress. Mental Status: Oriented to person, place and time. Eyes: Pupils are equal, round, and reactive to light. Ear, Nose, and Throat: Oropharynx clear, mucous membranes moist. Ears and nose without deformities. Trachea midline. Respiratory: Significant inspiratory and expiratory wheezing bilaterally. Some increased work of breathing. Cardiovascular: S1, S2 regular. No murmurs, rubs, or gallops. Gastrointestinal: Abdomen soft, non-tender, non-distended. Normal bowel sounds. Neurologic: Cranial nerves II-XII are grossly intact bilaterally. No focal neurological deficits. Moves all extremities spontaneously. Skin: Warm, dry. Musculoskeletal: No cyanosis or clubbing. Extremities: 1+ bilateral pitting edema. Psychiatric: Normal mood and affect. Results Labs 08/10/24 16:38 08/10/24 18:30 Labs: Laboratory Results - last 24 hr 08/10/24 08/10/24 08/10/24 16:38 16:42 18:30 MCV 97.6 MCH 31.8 MCHC 32.6 RDW 14.2 Plt Count 236 MPV 10.7 Immature Gran % (Auto) 0.3 Neut % (Auto) 56.9 Lymph % (Auto) 33.4 Stokes % (Auto) 6.2 Eos % (Auto) 2.5 Baso % (Auto) 0.7 Lymph # (Auto) 3.0 Stokes # (Auto) 0.6 Eos # (Auto) 0.2 Baso # (Auto) 0.1 Abs Immat Gran (auto) 0.03 Absolute Neuts (auto) 5.2 Absolute Nucleated RBC 0.000 Nucleated RBC % (auto) 0.0 VBG pH 7.38 VBG pCO2 60 VBG pO2 103 VBG HCO3 36 H VBG O2 Saturation 99.0 VBG Base Excess 8.7 Anion Gap 10 L Estim Creat Clear Calc 120.8 Estimated GFR > 60 Random Glucose 121 H Calcium 9.8 Magnesium 2.5 Total Bilirubin 0.3 Direct Bilirubin 0.1 AST 10 ALT 12 Alkaline Phosphatase 65 C-Reactive Protein 0.35 B-Natriuretic Peptide 14 Total Protein 6.7 Albumin 4.2 Influenza Type A (PCR) NEGATIVE Influenza Type B (PCR) NEGATIVE RSV RNA Qual (PCR) NEGATIVE SARS-CoV-2 RNA (RT-PCR) NEGATIVE Imaging Radiologist's Impressions: Impressions Chest X-Ray 08/10/24 16:13 IMPRESSION: Bronchial wall thickening may be infectious and/or inflammatory in etiology. Electronically signed by: Joelle Aguero MD 08/10/2024 06:59 PM EDT RP Assessment and Plan (1) Acute and chronic respiratory failure with hypercapnia: Status: Acute Plan Pt is a 54-year-old female with a PMH significant for?chronic hypoxic and hypercapnic respiratory failure secondary to COPD on 3L home O2, HFpEF, hx of PE on Eliquis, FABIOLA on BiPAP, fibromyalgia, osteoarthritis, hx of recurrent UTI, polysubstance use disorder, borderline personality disorder, bipolar disorder, depression and anxiety with previous suicide attempts who presents to the ED with?SOB and WAYNE since earlier this morning. Pt will be admitted to the hospital for treatment and further evaluation of acute on chronic hypoxic and hypercapnic respiratory failure in the setting of acute COPD exacerbation. Acute on chronic hypoxic and hypercapnic respiratory failure in the setting of acute COPD exacerbation Increased SOB, WAYNE, desatting into 80s on home 3 L O2, diffuse inspiratory and expiratory wheezing upon auscultation despite EMS and ED treatments Pt reports running out of home O2 two days prior No sepsis: Tachycardia secondary to albuterol; no focal consolidation or evidence of pneumonia; no indication for antibiotic treatment at this time Will treat with DuoNebs, Solu-Medrol, guaifenesin Titrate supplemental O2 >90, pt on 3L at home, wean as tolerated Monitor respiratory status History of pulmonary embolism Continue Eliquis FABIOLA BiPAP at night Obesity class 3 Weight loss recommended Bipolar disorder Continue lithium, olanzapine Full Code Attending:?Dr. Chauhan DVT Prophylaxis: On Eliquis Pt will require a hospitalization of at least two nights for treatment of acute on chronic hypoxic and hypercapnic respiratory failure in the setting of acute COPD exacerbation. Given patient's continued significant wheezing with poor air flow, as well as her significant comorbidities requiring frequent rescue BiPAP and ICU admissions, patient will require hospital level care for administration of IV steroids, breathing treatments, increased supplemental oxygen, and close monitoring. Quality Stroke Does the patient have a stroke diagnosis?: No VTE Prior VTE?: No VTE Risk Level:: Medical - moderate - high VTE Device Contraindication: Treatment Not Indicated VTE Drug Contraindication: N/A - Med Ordered
[2024-08-10] MEDS: Azithromycin 500 MG in 0.9 % Sodium Chloride 250 ML 125 MG IV (20:02)
[2024-08-10] MEDS: Albuterol/Iprat 2.5/0.5MG 3 ML AMPUL.NEB INHALE (20:58)
[2024-08-10] MEDS: 0.9 % Sodium Chloride Flush 3 ML SYRINGE IVFLUSH (23:59)
[2024-08-11] VITALS (10 sets, daily range): BP systolic 114–155; BP diastolic 58–80; PULSE 80–89; RESP 16–20; TEMP 36.3–36.8; O2SAT 90–94; BMI 43.4
--- NOTE | 2024-08-11 03:06 | PC.NURSE ---
patient ambulated to bathroom with assistance of 1 and 3L oxygen NC.
[2024-08-11 04:42] LABS: MANUAL DIFF FLAG NO
[2024-08-11 04:45] LABS: Basophils Percent Auto 0.3 % (0-2); Hematocrit 50.9 % (37.0-47.0); Hemoglobin 15.4 g/dl (12.0-16.0); Imm Gran Abs Auto 0.03 X10*3/uL (0.00-0.03); Imm Gran Pct Auto 0.5 % (0.0-0.4); Lymphocytes Absolute Auto 0.8 X10*3/uL (1.2-4.9); Lymphocytes Percent Auto 12.4 % (20-40); Mean Corpuscular HGB Conc 30.3 g/dl (31.0-35.0); Mean Corpuscular Volume 99.2 fL (80.0-98.0); Mean Platelet Volume 10.2 fL (9.4-12.3); Monocytes Percent Auto 0.6 % (2-11); Neutrophils Absolute Auto 5.5 x10*3/uL (2.0-8.3); Neutrophils Percent Auto 86.2 % (45-73); Platelet Count 219 X10*3/uL (160-400); Red Blood Count 5.13 X10*6/uL (4.20-5.50); Red Cell Distribution Width 13.9 % (11.0-16.0); White Blood Count 6.4 X10*3/uL (4.8-10.8)
[2024-08-11 04:59] LABS: Anion Gap 13 (12-20); Blood Urea Nitrogen 10 mg/dL (9-16); Calcium 10.1 mg/dL (8.4-10.2); Carbon Dioxide 33 mmol/L (22-29); Chloride 100 mmol/L (96-108); Creatinine Clr Calc Pharmacy 120.8; Estimated Glomerular Filt Rate > 60; Glucose Random 128 mg/dL (60-115); Potassium 4.7 mmol/L (3.3-5.1); Sodium 141 mmol/L (135-145)
--- NOTE | 2024-08-11 07:35 | P.PNIM_ITS ---
Subjective Subjective Date of Service: 08/11/24 Interval History: f/u on acute on chronic hypoxic resp failure d/t copd exacerbation she is feeling better, still wheezing Physical Exam 2 Vital Signs: Vital Signs: Last Vital Signs Temp 97.6 F 08/11/24 05:00 Pulse 88 08/11/24 05:00 Resp 20 08/11/24 05:00 BP 114/58 L 08/11/24 05:00 Pulse Ox 92 08/11/24 05:00 O2 Del Method Nasal Cannula 08/11/24 05:00 O2 Flow Rate 3 08/11/24 05:00 Oxygen Flow Rate 4 08/10/24 16:09 BMI result Body Mass Index 40.9 General: AO X 3, no acute distress Resp: bilateral wheezing CVS: S1,S2,RRR GI: +BS, NT, no distention Skin: No rash Neuro: motor grossly intact Psych: appropriate affect Objective Data Active Medications Acetaminophen (Acetaminophen 325 Mg Tablet) 650 mg PO Q6H PRN PRN Reason: Pain, Mild (Pain Scale 1-3), fever or headache Albuterol/Ipratropium (Albuterol/Iprat 2.5/0.5mg 3 Ml Ampul.Neb) 3 ml INHALE RQ4H WHILE AWAKE COUNTS INCLUDE 234 BEDS AT THE [facility] Last Admin: 08/11/24 07:18 Dose: Not Given Documented By: JESSICA Non-Admin Reason: Patient Refused Albuterol/Ipratropium (Albuterol/Iprat 2.5/0.5mg 3 Ml Ampul.Neb) 3 ml INHALE Q4H PRN PRN Reason: Wheezing Calcium Carbonate (Calcium Carbonate 750 Mg Tab.Chew) 750 mg PO Q4H PRN PRN Reason: Heartburn Magnesium Hydroxide (Milk Of Magnesia 30 Ml Oral.Susp) 30 ml PO DAILY PRN PRN Reason: Constipation Melatonin (Melatonin 3 Mg Tablet) 6 mg PO BEDTIME PRN PRN Reason: Insomnia Ondansetron HCl (Ondansetron Hcl 4 Mg/2 Ml Vial) 4 mg IVPUSH Q8H PRN PRN Reason: Nausea and Vomiting Prednisone (Prednisone 20 Mg Tablet) 40 mg PO DAILY COUNTS INCLUDE 234 BEDS AT THE [facility] Sodium Chloride (0.9 % Sodium Chloride Flush 3 Ml Syringe) 3 ml IVFLUSH QSHIFT COUNTS INCLUDE 234 BEDS AT THE [facility] Last Admin: 08/10/24 23:59 Dose: 3 ml Documented By: JAYCE Alvarado 08/11/24 04:13 08/11/24 04:13 Labs: Laboratory Results - last 24 hr 08/10/24 08/10/24 08/10/24 16:38 16:42 18:30 MCV 97.6 MCH 31.8 MCHC 32.6 RDW 14.2 Plt Count 236 MPV 10.7 Immature Gran % (Auto) 0.3 Neut % (Auto) 56.9 Lymph % (Auto) 33.4 [place] % (Auto) 6.2 Eos % (Auto) 2.5 Baso % (Auto) 0.7 Lymph # (Auto) 3.0 [place] # (Auto) 0.6 Eos # (Auto) 0.2 Baso # (Auto) 0.1 Abs Immat Gran (auto) 0.03 Absolute Neuts (auto) 5.2 Absolute Nucleated RBC 0.000 Nucleated RBC % (auto) 0.0 VBG pH 7.38 VBG pCO2 60 VBG pO2 103 VBG HCO3 36 H VBG O2 Saturation 99.0 VBG Base Excess 8.7 Anion Gap 10 L Estim Creat Clear Calc 120.8 Estimated GFR > 60 Random Glucose 121 H Calcium 9.8 Magnesium 2.5 Total Bilirubin 0.3 Direct Bilirubin 0.1 AST 10 ALT 12 Alkaline Phosphatase 65 C-Reactive Protein 0.35 B-Natriuretic Peptide 14 Total Protein 6.7 Albumin 4.2 Influenza Type A (PCR) NEGATIVE Influenza Type B (PCR) NEGATIVE RSV RNA Qual (PCR) NEGATIVE SARS-CoV-2 RNA (RT-PCR) NEGATIVE 08/11/24 04:13 MCV 99.2 H MCH 30.0 MCHC 30.3 L RDW 13.9 Plt Count 219 MPV 10.2 Immature Gran % (Auto) 0.5 H Neut % (Auto) 86.2 H Lymph % (Auto) 12.4 L [place] % (Auto) 0.6 L Eos % (Auto) 0.0 Baso % (Auto) 0.3 Lymph # (Auto) 0.8 L [place] # (Auto) 0.0 L Eos # (Auto) 0.0 Baso # (Auto) 0.0 Abs Immat Gran (auto) 0.03 Absolute Neuts (auto) 5.5 Absolute Nucleated RBC 0.000 Nucleated RBC % (auto) 0.0 VBG pH VBG pCO2 VBG pO2 VBG HCO3 VBG O2 Saturation VBG Base Excess Anion Gap 13 Estim Creat Clear Calc 120.8 Estimated GFR > 60 Random Glucose 128 H Calcium 10.1 Magnesium Total Bilirubin Direct Bilirubin AST ALT Alkaline Phosphatase C-Reactive Protein B-Natriuretic Peptide Total Protein Albumin Influenza Type A (PCR) Influenza Type B (PCR) RSV RNA Qual (PCR) SARS-CoV-2 RNA (RT-PCR) Assessment and Plan (1) Acute exacerbation of COPD with asthma: Status: Acute (2) Acute and chronic respiratory failure with hypercapnia: Status: Acute Plan 54/F w/?chronic hypoxic and hypercapnic respiratory failure secondary to COPD on 3L home O2, HFpEF, hx of PE on Eliquis, FABIOLA on BiPAP, fibromyalgia, osteoarthritis, hx of recurrent UTI, polysubstance use disorder, borderline personality disorder, bipolar disorder, depression and anxiety with previous suicide attempts who presents to the ED with?SOB and WAYNE s and admitted for acute on chronic hypoxic and hypercapnic respiratory failure in the setting of acute COPD exacerbation. Acute on chronic hypoxic and hypercapnic respiratory failure in the setting of acute COPD exacerbation, improving -continue IV solu-medrol, bronchodilators by Neb, O2 with sat goal of 88 to 92. Tobacco cessation discussed History of pulmonary embolism Continue Eliquis FABIOLA BiPAP at night Obesity class 3 Weight loss recommended Bipolar disorder Continue lithium, olanzapine Full Code DVT Prophylaxis: On Eliquis need for inpt: Iv steroid for copd ex with acute hypoxic resp failure Quality Stroke Does the patient have a stroke diagnosis?: No VTE Prior VTE?: No VTE Risk Level:: Medical - moderate - high VTE Device Contraindication: Treatment Not Indicated VTE Drug Contraindication: N/A - Med Ordered
[2024-08-11] MEDS: predniSONE 20 MG TABLET 40 MG PO (09:19)
--- NOTE | 2024-08-11 11:20 | PHA.MEDREC ---
Addendum entered by Jeff Davison RPh 08/11/24 12:18: Reviewed by [facility]. Original Note: Pharmacy Consult ? Medication Reconciliation Pharmacy has completed the medication reconciliation. Spoke with patient and [facility] to confirm medications. She is not on antibiotics currently, just recently finished a course of macrobid for a UTI. She confirmed dosing and frequency for ferrous sulfate, furosemide, eliquis, gabapentin, and lithium, all taken yesterday morning before coming here.
[2024-08-11] MEDS: Albuterol/Iprat 2.5/0.5MG 3 ML AMPUL.NEB INHALE ×2 (15:55→19:25)
[2024-08-11] MEDS: 0.9 % Sodium Chloride Flush 3 ML SYRINGE IVFLUSH ×2 (17:06→19:37)
[2024-08-11] MEDS: OLANZapine 10 MG TABLET PO (21:04)
[2024-08-11] MEDS: Lithium Carbonate ER 450 MG TABLET.ER PO (21:04)
[2024-08-11] MEDS: Melatonin 3 MG TABLET 6 MG PO (21:04)
[2024-08-11] MEDS: Apixaban 5 MG TABLET PO (21:04)
[2024-08-11] MEDS: Gabapentin 400 MG CAPSULE PO (21:05)
[2024-08-11] MEDS: rOPINIRole HCL 1 MG TABLET PO (21:05)
[2024-08-11] MEDS: cloNIDine HCL 0.2 MG TABLET PO (21:06)
[2024-08-12 04:00] VITALS: BP 119/74; PULSE 66; RESP 18; TEMP 36; O2SAT 91
[2024-08-12] MEDS: Albuterol/Iprat 2.5/0.5MG 3 ML AMPUL.NEB INHALE (07:51)
[2024-08-12] MEDS: Fluticasone/Vilanterol 100/25 BLST.W.DEV 1 PUFF INHALE (07:51)
[2024-08-12] MEDS: Tiotropium Bromide 2.5 mcg 1 PUFF/2.5 MCG MIST.INHAL 2 PUFF INHALE (07:51)
[2024-08-12 07:53] VITALS: PULSE 73; RESP 20; O2SAT 94
[2024-08-12 07:59] VITALS: BP 121/78; PULSE 70; RESP 18; TEMP 36.1; O2SAT 95
[2024-08-12] MEDS: predniSONE 20 MG TABLET 40 MG PO (09:11)
[2024-08-12] MEDS: Apixaban 5 MG TABLET PO (09:11)
[2024-08-12] MEDS: Cyanocobalamin (Vitamin B-12) 1,000 MCG TABLET 1000 MCG PO (09:11)
[2024-08-12] MEDS: Gabapentin 400 MG CAPSULE PO (09:11)
[2024-08-12] MEDS: Lithium Carbonate ER 450 MG TABLET.ER PO (09:11)
[2024-08-12] MEDS: Cholecalciferol (Vitamin D3) 25 MCG TABLET PO (09:11)
[2024-08-12] MEDS: Furosemide 20 MG TABLET PO (09:11)
[2024-08-12] MEDS: valACYclovir HCL 1,000 MG TABLET 1000 MG PO (09:11)
[2024-08-12] MEDS: 0.9 % Sodium Chloride Flush 3 ML SYRINGE IVFLUSH (09:14)
--- NOTE | 2024-08-12 09:27 | P.DS_ITS ---
DS: Providers Provider Date of Service: 08/12/24 Date of admission: 08/10/24 19:37 Date of discharge: 08/12/24 Primary care physician: Mike Malone MD DS: Diagnosis Discharge Diagnosis (1) Acute exacerbation of COPD with asthma: Status: Acute (2) Acute and chronic respiratory failure with hypercapnia: Status: Acute DS: Summary Hospital Course Hospital Course: Hospital course: A 54-year-old female with chronic hypoxic and hypercapnic respiratory failure secondary to COPD on 3L home oxygen, heart failure with preserved ejection fraction (HFpEF), history of pulmonary embolism (PE) on Eliquis, obstructive sleep apnea (FABIOLA) on BiPAP, fibromyalgia, osteoarthritis, recurrent urinary tract infections (UTIs), polysubstance use disorder, borderline personality disorder, bipolar disorder, depression, anxiety, and active tobacco use, with a history of previous suicide attempts, presents to the ED with shortness of breath (SOB) and dyspnea on exertion (WAYNE). Chest X-ray shows no pneumonia. She was admitted for [id number] hypoxic and hypercapnic respiratory failure in the setting of an acute COPD exacerbation, with no evidence of acute infection. She was treated with corticosteroids and bronchodilators via nebulizer, resulting in a rapid recovery. Her lungs are now clear, and she is without respiratory symptoms. The patient feels comfortable and expresses a desire to go home. She will be discharged with instructions to complete three more days of prednisone, advised to stop smoking, and to continue her baseline home oxygen therapy. History of pulmonary embolism Continue Eliquis FABIOLA BiPAP at night Obesity class 3 Weight loss recommended Bipolar disorder Continue lithium, olanzapine Dispo: home Final diagnosis: Acute on chronic hypoxic hypercarbic respiraotory failure copd exacerbaton fabiola obesity bipolar disorder tobacco use disorder Time Attestation Discharge Coordination Time (in mins): 45 Quality: Safe Use of Opioids Does Pt have an Active Cancer Diagnosis on the Problem List?: No Quality: Stroke Does the patient have a stroke diagnosis?: No Physical Exam Vital Signs: Vital Signs: Last Vital Signs Temp 97.0 F 08/12/24 07:59 Pulse 70 08/12/24 07:59 Resp 18 08/12/24 07:59 BP 121/78 08/12/24 07:59 Pulse Ox 95 08/12/24 07:59 O2 Del Method Nasal Cannula 08/12/24 07:59 O2 Flow Rate 3.0 08/12/24 07:59 Oxygen Flow Rate 4 08/10/24 16:09 BMI result Body Mass Index 43.4 Const: Other: General: AO X 3, no acute distress Resp: CTA bilateral CVS: S1,S2,RRR GI: +BS, NT, no distention Skin: No rash Neuro: motor grossly intact Psych: appropriate affect DS: Data Data Completed and Pending Completed studies during hospitalization [Text1]: Procedures Discharge Plan Discharge Anticipated Discharge Date/Time: 08/12/24 09:22 Patient Disposition: Home, Self-Care Discharge Diagnosis: Acute on chronic respriatory failure, COPD exacerbation Referrals: Mike Malone MD [Primary Care Provider] - 1 Week Discharge Medications: New prednisone 20 mg tablet 20 mg PO DAILY Qty: 6 0RF Continued ropinirole 1 mg Tablet 1 mg PO BEDTIME Qty: 30 0RF olanzapine 10 mg Tablet 10 mg PO BEDTIME Qty: 30 0RF clonidine HCl 0.2 mg Tablet 0.2 mg PO BEDTIME Qty: 30 0RF Protocol: Hold for SBP< HOLD for SBP < : 90 cetirizine 10 mg Tablet 10 mg PO DAILY PRN (Reason: Allergy Symptoms) melatonin 3 mg Tablet 3 mg PO BEDTIME cholecalciferol (vitamin D3) [Vitamin D3] 25 mcg (1,000 unit) tablet 25 mcg PO DAILY ferrous sulfate 325 mg (65 mg iron) Tablet 325 mg PO MOWEFR fluticasone propion-salmeterol [Advair HFA] 115-21 mcg/actuation Hfa Aerosol Inhaler 2 puff INHALATION BID pantoprazole 20 mg Tablet,Delayed Release (Dr/Ec) 40 mg PO DAILY@0630 Eliquis 5 mg Tablet 5 mg PO BID Qty: 60 0RF lithium carbonate 450 mg tablet extended release 450 mg PO TID cyanocobalamin (vitamin B-12) [Vitamin B-12] 1,000 mcg tablet 1,000 mcg PO DAILY albuterol sulfate 2.5 mg /3 mL (0.083 %) Solution For Nebulization 2.5 mg INHALATION Q4-6H PRN (Reason: Shortness Of Breath Or Wheezing) gabapentin 400 mg Capsule 400 mg PO TID guaifenesin 100 mg/5 mL Liquid 200 mg PO Q4-6H PRN (Reason: Cough) valacyclovir [Valtrex] 1 gram Tablet 1,000 mg PO DAILY furosemide 20 mg Tablet 20 mg PO Q OTHER DAY albuterol sulfate [Ventolin HFA] 90 mcg/actuation Hfa Aerosol Inhaler 2 puff INHALATION Q4-6H PRN (Reason: Shortness Of Breath Or Wheezing) tiotropium bromide [Spiriva with HandiHaler] 18 mcg Capsule, W/Inhalation Device 1 cap INHALATION DAILY Rx Instructions: puncture 1 cap using device; one dose = 2 inhalations nystatin 100,000 unit/mL suspension 400,000 unit PO QID PRN (Reason: oral thrush) Discharge Orders: Discharge Order (Routine); Ordered 08/12/24 Ordered By: Davi Tejada Diet: Advance to usual diet Activity on Discharge: As tolerated Stand Alone Forms: Patient Portal Discharge page Print Language: Italian Care Plan Goals: recovery from COPD exacerbation, abstain from smoking Health Concerns: acute on chronic respiratory failure chronic tobacco use disorder Plan of Treatment: take prednisone as directed for the next 3 days, missed doses tomorrow morning avoid smoking follow-up with your primary care doctor within a week, call for appointment. Assessment: See above
--- NOTE | 2024-08-12 09:49 | MHC.CM.PN ---
PT REPORTS SHE LIVES ALONE AND IS INDEPENDENT WITH SELF CARE SHE IS ACTIVE WITH [facility] FOR SNF PT HAS A ROLLATOR, HOME O2 FROM [facility], A CPAP AND A NEBULIZER HCP ON FILE PCP: KEVEN MARQUEZ DCP: PT WILL DC HOME TODAY WITH RESUMPTION OF [facility] BLS TRANSPORT BOOKED FOR 1100 HOURS VIA [facility]
== END 2024-08-12 11:01 | disposition home health service (06) | DRG 140 ==
LOC: HO.ED 19:42 → HO.EDOVER 20:22 → HO.S3 08-11 15:11
PROVIDERS: Admitting Provider Student in an Organized Health Care Education/Training Program; Emergency Provider Emergency Medicine; PCP Internal Medicine; Visit Provider Internal Medicine
DX: J44.1 Chronic obstructive pulmonary disease with (acute) exacerbation (principal); J96.21 Acute and chronic respiratory failure with hypoxia; I50.32 Chronic diastolic (congestive) heart failure; Z99.81 Dependence on supplemental oxygen; J96.22 Acute and chronic respiratory failure with hypercapnia; F31.9 Bipolar disorder, unspecified; E66.813 Obesity, class 3; Z68.41 Body mass index [BMI] 40.0-44.9, adult; F19.90 Other psychoactive substance use, unspecified, uncomplicated; J45.901 Unspecified asthma with (acute) exacerbation; Z71.3 Dietary counseling and surveillance; F17.210 Nicotine dependence, cigarettes, uncomplicated; Z71.6 Tobacco abuse counseling; G47.33 Obstructive sleep apnea (adult) (pediatric); Z20.822 Contact with and (suspected) exposure to COVID-19; Z87.440 Personal history of urinary (tract) infections; Z86.711 Personal history of pulmonary embolism; Z79.01 Long term (current) use of anticoagulants; Z79.51 Long term (current) use of inhaled steroids; Z79.899 Other long term (current) drug therapy
CPT/HCPCS: 0241U; 36415; 71045; 80048; 80076; 82803; 83735; 83880; 85025; 86140; 93005; 94640; 94660; 99285; J0456; J3475

== ENCOUNTER → 2024-08-10 16:13 | Outpatient (BNV) | payer MEDICAID, SELFPAY | PROVIDERS: Admitting Provider Student in an Organized Health Care Education/Training Program; Emergency Provider Emergency Medicine; PCP Internal Medicine; Visit Provider Internal Medicine Cardiovascular Disease | DX: R94.31 Abnormal electrocardiogram [ECG] [EKG] (principal) | CPT/HCPCS: 93010 ==

== ENCOUNTER → 2024-08-10 19:37 | Outpatient (BNV) | payer MEDICAID, SELFPAY | PROVIDERS: Admitting Provider Student in an Organized Health Care Education/Training Program; Emergency Provider Emergency Medicine; PCP Internal Medicine; Visit Provider Student in an Organized Health Care Education/Training Program | DX: J44.1 Chronic obstructive pulmonary disease with (acute) exacerbation (principal); J96.22 Acute and chronic respiratory failure with hypercapnia; J96.21 Acute and chronic respiratory failure with hypoxia | CPT/HCPCS: 99223; 99232; 99239 ==

== ENCOUNTER 2024-08-14 23:15 | Emergency (ER) | payer MEDICAID, SELFPAY ==
--- NOTE | ~2024-08-14 | XR_ITS ---
EXAMINATION: XR KNEE, RIGHT CLINICAL INFORMATION: Fall. Pain. COMPARISON: May 16, 2022. TECHNIQUE: Four views of the right knee. FINDINGS: The bone mineralization is normal. There is stable [id number] medial, and mild lateral degenerative change with loss of joint space, subchondral sclerosis and osteophyte formation. No acute fracture is seen. There is no significant joint effusion. There is prepatellar/anterior superior tib-fib soft tissue swelling. XR/XR knee RT 4V IMPRESSION: 1. No acute fracture or dislocation. 2. There is prepatellar/anterior superior tib-fib soft tissue swelling. 3. There is stable [id number] medial, and mild lateral degenerative change. Electronically signed by: Mansoor Sethi MD 08/15/2024 12:44 AM EDT
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
[2024-08-14 23:24] VITALS: BP 132/88; PULSE 92; O2SAT 86
--- NOTE | 2024-08-14 23:24 | ECG_ITS ---
Test Reason : FALL Blood Pressure : / mmHG Vent. Rate : 094 BPM Atrial Rate : 094 BPM P-R Int : 134 ms QRS Dur : 078 ms QT Int : 358 ms P-R-T Axes : 011 022 028 degrees QTc Int : 447 ms Normal sinus rhythm Normal ECG When compared with ECG of 10-AUG-2024 16:22, No significant changes seen Referred By: Mary Beth Cisse Electronically Signed By:ALEJANDRO MCCLELLAN
[2024-08-14 23:27] VITALS: BMI 38.7
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
[2024-08-14 23:40] VITALS: BP 113/75; PULSE 92; RESP 18; TEMP 36.4; O2SAT 100
[2024-08-14 23:53] VITALS: PULSE 87; RESP 16; O2SAT 96
[2024-08-15 00:16] LABS: MANUAL DIFF FLAG NO
[2024-08-15 00:21] LABS: Basophils Absolute Auto 0.1 X10*3/uL (0.0-0.2); Basophils Percent Auto 0.6 % (0-2); Eosinophils Percent Auto 0.3 % (0-4); Hematocrit 52.5 % (37.0-47.0); Imm Gran Abs Auto 0.06 X10*3/uL (0.00-0.03); Imm Gran Pct Auto 0.5 % (0.0-0.4); Lymphocytes Absolute Auto 1.7 X10*3/uL (1.2-4.9); Lymphocytes Percent Auto 13.9 % (20-40); Mean Corpuscular HGB Conc 32.4 g/dl (31.0-35.0); Mean Corpuscular Hemoglobin 31.8 pg (27.0-33.0); Mean Corpuscular Volume 98.1 fL (80.0-98.0); Mean Platelet Volume 9.9 fL (9.4-12.3); Monocytes Absolute Auto 0.6 X10*3/uL (0.1-1.2); Monocytes Percent Auto 5.3 % (2-11); Neutrophils Absolute Auto 9.5 x10*3/uL (2.0-8.3); Neutrophils Percent Auto 79.4 % (45-73); Platelet Count 227 X10*3/uL (160-400); Red Blood Count 5.35 X10*6/uL (4.20-5.50); Red Cell Distribution Width 13.9 % (11.0-16.0)
[2024-08-15 00:27] LABS: Amphetamine Screen Urine Not Detected (Not Detect); Barbiturates, Urine Not Detected (Not Detect); Benzodiazepines Screen Urine Not Detected (Not Detect); Buprenorphine Scr Not Detected (Not Detect); Cannabinoid Screen Urine Not Detected (Not Detect); Cocaine Screen Urine POSITIVE (Not Detect); Fentanyl, urine Not Detected (Not Detect); Methadone Screen, Urine Not Detected (Not Detect); Opiate Screen Urine Not Detected (Not Detect); Oxycodone Screen Urine Not Detected (Not Detect); Phencyclidine Screen Urine Not Detected (Not Detect)
[2024-08-15 00:31] LABS: Ethanol < 10 mg/dL
[2024-08-15 00:45] LABS: VBG Base Excess 5.5 mmol/L; VBG HCO3 34 mmol/L (22-26); VBG pCO2 64 mmHg; VBG pH 7.32 (7.32-7.43); VBG pO2 45 mmHg
[2024-08-15 00:45] LABS: Venous Blood Gas Refer to POC result
[2024-08-15 00:57] LABS: Alanine Aminotransferase 14 U/L (0-31); Albumin Level 4.4 g/dL (3.5-5.0); Alkaline Phosphatase 74 U/L (39-117); Anion Gap 15 (12-20); Aspartate Amino Transferase 15 U/L (5-31); Bilirubin Direct 0.2 mg/dL (0.0-0.5); Bilirubin Total 0.7 mg/dL (0.0-1.0); Blood Urea Nitrogen 17 mg/dL (9-16); Calcium 10.3 mg/dL (8.4-10.2); Carbon Dioxide 32 mmol/L (22-29); Chloride 98 mmol/L (96-108); Creatinine Clr Calc Pharmacy 101.6; Estimated Glomerular Filt Rate > 60; Glucose Random 128 mg/dL (60-115); Lipase 15 U/L (8-78); Magnesium 2.2 mg/dL (1.6-2.6); Potassium 4.3 mmol/L (3.3-5.1); Sodium 141 mmol/L (135-145)
[2024-08-15 01:05] LABS: B Type Natriuretic Peptide 26 pg/mL (<100)
[2024-08-15] MEDS: Albuterol/Iprat 2.5/0.5MG 3 ML AMPUL.NEB INHALE (01:19)
[2024-08-15 02:09] LABS: Lithium 0.85 mmol/L (0.60-1.20)
[2024-08-15 05:59] VITALS: BP 102/54; PULSE 80; RESP 19; TEMP 36.4; O2SAT 95
[2024-08-15 11:58] VITALS: BP 102/54; PULSE 80; RESP 19; TEMP 36.4; O2SAT 95
== END 2024-08-15 11:59 | disposition home or self-care (01) ==
PROVIDERS: Emergency Provider Emergency Medicine
DX: S80.11XA Contusion of right lower leg, initial encounter (principal); F33.1 Major depressive disorder, recurrent, moderate; R45.851 Suicidal ideations; J44.9 Chronic obstructive pulmonary disease, unspecified; M25.561 Pain in right knee; F14.10 Cocaine abuse, uncomplicated; R51.9 Headache, unspecified; M54.2 Cervicalgia; R06.02 Shortness of breath; F17.210 Nicotine dependence, cigarettes, uncomplicated; X58.XXXA Exposure to other specified factors, initial encounter; Y93.89 Activity, other specified; Y92.89 Other specified places as the place of occurrence of the external cause; Y99.8 Other external cause status; Z86.711 Personal history of pulmonary embolism; Z79.01 Long term (current) use of anticoagulants; Z99.81 Dependence on supplemental oxygen; Z79.899 Other long term (current) drug therapy
CPT/HCPCS: 36415; 70450; 72125; 73564; 80048; 80076; 80178; 80307; 82803; 83690; 83735; 83880; 85025; 93005; 94640; 99285; S9485

== ENCOUNTER → 2024-08-14 23:24 | Outpatient (BNV) | payer MEDICAID, SELFPAY | PROVIDERS: Emergency Provider Emergency Medicine; Visit Provider Internal Medicine | DX: R55 Syncope and collapse (principal) | CPT/HCPCS: 93010 ==

== ENCOUNTER 2024-08-19 14:23 | Emergency (ER) | payer MEDICAID, SELFPAY ==
--- NOTE | ~2024-08-19 | CT_ITS ---
EXAMINATION: CT RIGHT LOWER EXTREMITY CLINICAL INFORMATION: Hematoma with question of active bleeding COMPARISON: Plain film radiographs of the knee 08/15/2024 TECHNIQUE: CT scan of the knee was performed with IV contrast only. 85 mL of Omnipaque 350 was utilized. Scans were obtained from the lower thigh through the foot. Images were reconstructed in coronal and sagittal planes. This CT examination was performed using dose optimization techniques as appropriate, variously including the following: *Automated exposure control *Adjustment of mA and/or kV according to patient size (this includes techniques or standardized protocols for targeted exams where dose is matched to indication/reason for exam; i.e. extremities or head) *Use of iterative reconstruction technique DLP: 305 mcg/sq m FINDINGS: There is some streaky density seen in the subcutaneous fat. There is a small hematoma present in the subcutaneous tissues in the right prepatellar region which measures 6.1 x 1.1 x 6.5 cm. No active extravasation of contrast is seen although the exam was not tailored for this as no noncontrast images or delayed images were obtained. Nevertheless, the hematoma is quite small. A small knee joint effusion is present. Tricompartmental degenerative changes are present most marked in the medial compartment with marked narrowing. There are bilateral osteophytes. No chondrocalcinosis. No fractures or subluxations. CT/CT lower leg RT w IV con IMPRESSION: 1. Small prepatellar hematoma without evidence of active extravasation. 2. Tricompartmental degenerative changes with small joint effusion. Electronically signed by: Yoni Wilson MD 08/19/2024 05:28 PM EDT
[2024-08-19 14:32] VITALS: BP 106/64; BP 138/82; PULSE 100; PULSE 106; RESP 20; TEMP 36.2; O2SAT 93; O2SAT 96; BMI 47.0
[2024-08-19 15:01] LABS: MANUAL DIFF FLAG NO
[2024-08-19 15:05] LABS: Basophils Absolute Auto 0.1 X10*3/uL (0.0-0.2); Basophils Percent Auto 0.8 % (0-2); Eosinophils Percent Auto 0.4 % (0-4); Hematocrit 49.9 % (37.0-47.0); Hemoglobin 15.9 g/dl (12.0-16.0); Imm Gran Abs Auto 0.06 X10*3/uL (0.00-0.03); Imm Gran Pct Auto 0.8 % (0.0-0.4); Lymphocytes Absolute Auto 1.5 X10*3/uL (1.2-4.9); Lymphocytes Percent Auto 19.6 % (20-40); Mean Corpuscular HGB Conc 31.9 g/dl (31.0-35.0); Mean Corpuscular Hemoglobin 31.2 pg (27.0-33.0); Mean Platelet Volume 10.3 fL (9.4-12.3); Monocytes Absolute Auto 0.3 X10*3/uL (0.1-1.2); Monocytes Percent Auto 3.3 % (2-11); Neutrophils Absolute Auto 5.7 x10*3/uL (2.0-8.3); Neutrophils Percent Auto 75.1 % (45-73); Platelet Count 299 X10*3/uL (160-400); Red Blood Count 5.09 X10*6/uL (4.20-5.50); Red Cell Distribution Width 13.5 % (11.0-16.0); White Blood Count 7.6 X10*3/uL (4.8-10.8)
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
--- NOTE | 2024-08-19 15:23 | PC.NURSE ---
cammie wrap applied to right lower extremity, leg placed on three pillows- pt awaiting CT scan
[2024-08-19 16:14] LABS: Alanine Aminotransferase 15 U/L (0-31); Albumin Level 4.1 g/dL (3.5-5.0); Alkaline Phosphatase 64 U/L (39-117); Anion Gap 12 (12-20); Aspartate Amino Transferase 12 U/L (5-31); Bilirubin Direct 0.1 mg/dL (0.0-0.5); Bilirubin Total 0.3 mg/dL (0.0-1.0); Blood Urea Nitrogen 7 mg/dL (9-16); Calcium 10.2 mg/dL (8.4-10.2); Carbon Dioxide 33 mmol/L (22-29); Chloride 100 mmol/L (96-108); Creatinine Clr Calc Pharmacy 118.6; Estimated Glomerular Filt Rate > 60; Glucose Random 117 mg/dL (60-115); Magnesium 1.8 mg/dL (1.6-2.6); Potassium 4.7 mmol/L (3.3-5.1); Sodium 140 mmol/L (135-145); Total Protein 6.9 g/dL (6.5-8.0)
[2024-08-19] MEDS: iohexoL 350 MG/ML 100 ML INFUS..BTL IV (16:41)
--- NOTE | 2024-08-19 19:30 | PC.NURSE ---
This RN assumed pt care @ 1900. Pt a&ox4, no signs of distress Pt sitting in bed comfortably watching tv Pt on 3l of 02 ns Pt requested and given drink Pt also requested and lights turned off. Plan of care ongoing.
[2024-08-19 20:30] VITALS: BP 121/70; PULSE 56; RESP 16; TEMP 36.9; O2SAT 92
[2024-08-19 23:45] VITALS: RESP 15
[2024-08-20 02:00] VITALS: RESP 16
[2024-08-20 03:47] VITALS: RESP 16
[2024-08-20 06:34] VITALS: BP 121/76; PULSE 76; RESP 15; TEMP 37.1; O2SAT 92
[2024-08-20 08:00] VITALS: BP 143/69; PULSE 89; RESP 22; TEMP 36.7; O2SAT 93
--- NOTE | 2024-08-20 08:21 | MHC.EDTECH ---
pt ate 100% breakfast
--- NOTE | 2024-08-20 08:26 | PC.NURSE ---
PT eval being completed at this time.
--- NOTE | 2024-08-20 08:46 | PC.NURSE ---
ЕЛЕНА hernandez completed. labs/swab obtained and sent to lab by [facility].
[2024-08-20 08:57] LABS: Hematocrit 51.3 % (37.0-47.0); Hemoglobin 15.9 g/dl (12.0-16.0)
[2024-08-20 09:21] LABS: COVID-19 Test Negative (Negative); IDNOW Serial# 08D9AD1C
[2024-08-20 10:00] VITALS: BP 123/77; PULSE 88; RESP 20; TEMP 37; O2SAT 94
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
[2024-08-20 11:00] VITALS: BP 123/77; PULSE 88; RESP 20; TEMP 37; O2SAT 94
--- NOTE | 2024-08-20 11:07 | PC.NURSE ---
discharge paperwork provided to pt. report given to ZANDRA Sellers at this time. belongings returned to pt. leaving ED overflow at this time.
== END 2024-08-20 11:07 | disposition still patient (30) ==
PROVIDERS: Physician Assistant; Physician Assistant Medical; Emergency Provider Emergency Medicine; PCP Internal Medicine
DX: S80.11XA Contusion of right lower leg, initial encounter (principal); M79.604 Pain in right leg; J44.9 Chronic obstructive pulmonary disease, unspecified; R26.2 Difficulty in walking, not elsewhere classified; F17.210 Nicotine dependence, cigarettes, uncomplicated; V03.90XA Pedestrian on foot injured in collision with car, pick-up truck or van, unspecified whether traffic or nontraffic accident, initial encounter; Y93.89 Activity, other specified; Y92.488 Other paved roadways as the place of occurrence of the external cause; Y99.8 Other external cause status; Z86.711 Personal history of pulmonary embolism; Z11.52 Encounter for screening for COVID-19; Z79.01 Long term (current) use of anticoagulants; Z79.899 Other long term (current) drug therapy
CPT/HCPCS: 36415; 73701; 80048; 80076; 82550; 83735; 85014; 85018; 85025; 87635; 97161; 99284; Q9967

== ENCOUNTER 2024-08-21 15:02 | Outpatient (AMB) | payer MEDICAID, SELFPAY ==
--- NOTE | 2024-08-21 15:10 | MHC.OFFVIS ---
Vital Signs 08/21/24 15:11 Height 5 ft 5 in Weight 249 lb BMI 41.4 BP 110/70 Blood Pressure Location Lt brachial Position Sitting Pulse 88 Pulse Source Pulse Oximeter Pulse Oximetry (%) 94 Oxygen Delivery Method Room Air Intake Visit Reasons: COPD Intake Note: pt is here as a new patient, she has copd, has oxygen at home, but does not use it and wishes to have it removed. ([facility]) Bridge Rigger Required: No Allergies aspirin Allergy (Mild, Verified 08/21/24 15:51) Anaphylaxis ampicillin Allergy (Verified 08/21/24 15:51) Rash enoxaparin [From Lovenox] Allergy (Verified 08/21/24 15:51) Anaphylaxis Penicillins Allergy (Verified 08/21/24 15:51) Anaphylaxis latex Adverse Reaction (Verified 08/21/24 15:51) Rash Latex, Natural Rubber Adverse Reaction (Verified 08/21/24 15:51) Rash seafood Adverse Reaction (Verified 08/21/24 15:51) Anaphylaxis Sulfa (Sulfonamide Antibiotics) Adverse Reaction (Verified 08/21/24 15:51) Hives Medication List - Last Reconciled 08/21/24 by Emma Garcia MD albuterol sulfate 2.5 mg inhalation Q4-6H PRN albuterol sulfate 90 mcg/actuation (Ventolin HFA) 2 puffs inhalation Q4-6H PRN apixaban (Eliquis) 5 mg PO BID cetirizine 10 mg PO DAILY PRN cholecalciferol (vitamin D3) (Vitamin D3) 25 mcg PO DAILY clonidine HCl 0.2 mg See Protocol PO BEDTIME cyanocobalamin (vitamin B-12) (Vitamin B-12) 1,000 mcg PO DAILY ferrous sulfate 325 mg PO MOWEFR fluticasone propion-salmeterol 115-21 mcg/actuation (Advair HFA) 2 puffs inhalation BID furosemide 20 mg PO Q OTHER DAY gabapentin 400 mg PO TID guaifenesin 200 mg PO Q4-6H PRN lithium carbonate ER 450 mg PO TID melatonin 3 mg PO BEDTIME nystatin 400,000 units PO QID PRN olanzapine 10 mg PO BEDTIME pantoprazole 40 mg PO DAILY@0630 ropinirole 1 mg PO BEDTIME tiotropium bromide (Spiriva with HandiHaler) 1 cap inhalation DAILY valacyclovir (Valtrex) 1,000 mg PO DAILY Do you need a note to return to daycare/school/sports/work: No HPI HPI COPD: Details: THIS PATIENT IS 54 YEARS OLD FEMALE WHO IS BEING SEEN FOR THE 1ST TIME BY ME IN THE OFFICE. SHE IS A CASE OF MORBID OBESITY, PAST DIAGNOSIS OF FABIOLA/HYPOVENTILATION SYNDROME, ADVANCED COPD, DUE TO HISTORY OF SMOKING UP TO 3 PACKS A DAY WHICH SHE HAS CUT DOWN TO HALF PACK A DAY NOW. SHE HAS BIPOLAR DISORDER, HAS HAD ADMISSIONS TO THE PSYCH UNIT , WITH AN OVERDOSE AND ALSO WITH SUICIDAL IDEATION. RECENTLY ADMITTED ABOUT 3 TIMES TO [facility] WITH ACUTE ON CHRONIC RESPIRATORY FAILURE.( 05/26 - 05/28------ 06/05 - 06/07 -- AND 08/10 - 08/12 ) EACH TIME SHE HAD TO BE STARTED ON CPAP OR BIPAP THERAPY, TREATED FOR ACUTE EXACERBATION OF COPD WITH A SHORT COURSE OF PREDNISONE , AND SHE BOUNCED BACK VERY QUICKLY GETTING OFF THE BIPAP WITHIN A FEW DAYS. HER O2 SAT ALSO IMPROVED QUICKLY BUT SHE NEEDED O2 SUPPLEMENTATION AT HOME. SHE HAD A SLEEP STUDY VERY RECENTLY, ON 06/06/2024. SURPRISINGLY SHE DID NOT HAVE ENOUGH OBSTRUCTIVE SLEEP APNEA REQUIRING TREATMENT. SHE DID HAVE MILD NOCTURNAL HYPOXEMIA WITH LOWEST O2 SAT 79% AND O2 SAT BELOW 88% FOR 12 MINUTES. PATIENT USES DUONEB UPDRAFTS 2 OR 3 TIMES A DAY, SHE ALSO USES ALBUTEROL INHALER P.R.N.. SHE IS ON SPIRIVA HANDIHALER, ONCE A DAY AND ADVAIR 115-212 PUFFS B.I.D.. SHE CLAIMS THAT SINCE SHE HAS CUT DOWN THE SMOKING, HER BREATHING IS BETTER. SHE HAS THE O2 APPARATUS AT HOME STATIONARY CONCENTRATOR WELL MULTIPLE CYLINDERS FOR PORTABILITY. HER MAIN GOAL OF COMING TO SEE ME TODAY WAS TO ASK FOR A NOTE TO THE OXYGEN COMPANY TO REMOVE ALL THE OXYGEN EQUIPMENT FROM HER HOUSE. IT SHOULD BE NOTED THAT SHE DOES HAVE BIPOLAR DISORDER AND HER MENTAL STATUS, WHICH IS QUITE CLEAR TODAY, MAY NOT ALWAYS BE THE SAME. SHE LIVES AT HOME, WALKS WITH A WALKER, PREVIOUSLY HAS BEEN SEEING A LIQUID COMPOUNDER IN [facility], AND TELLS ME THAT SHE GOES TO HER PRIMARY CARE PHYSICIAN WHO IS A DOCTOR FOR THE HOMELESS. TODAY SHE WALKED INTO THE OFFICE WITH THE HELP OF HER WALKER, SHE WAS ON ROOM AIR AND WAS NOT NOTICED TO BE SHORT OF BREATH. ( PFSH Medical History (Updated 08/21/24 @ 16:18 by Emma Garcia MD) Smoker FABIOLA (obstructive sleep apnea) Asthma Morbid obesity Intentional overdose Acute bronchospasm Bipolar I disorder with depression Overdose on Tylenol Suicide attempt Asthma COPD (chronic obstructive pulmonary disease) Chronic lung disease Neoplasm of parotid gland Depression 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 Drug abuse Bipolar I disorder Post traumatic stress disorder (PTSD) Tobacco use disorder Borderline personality disorder Intermittent explosive disorder Asthma exacerbation in COPD Herpes Tobacco use Bipolar disorder COPD (chronic obstructive pulmonary disease) Surgical History History of ankle surgery History of back surgery Hx of cholecystectomy History of appendectomy Family History Mother COPD (chronic obstructive pulmonary disease) Social History Household Members: None Household Members Other:: So Housing: Apartment Housing Other:: Sleeps on the couch at [facility] house Do you presently have visiting nurse or other home services: Yes Unable to assess alcohol history related to: Unknown Alcohol intake: former Comment: patient has 1:1 staffing Patient Tobacco Use Status: Current everyday Tobacco user Tobacco use type: Cigarette Cigarette Packs Per Day: 0.5 Cigarettes Per Day: 3 Years Smoked: 37 e-Cigarette/Vaping Use: Never Used Second Hand Smoke Exposure: Yes Substance Use Type: Crack/Cocaine Advance Directives Date on File: 06/17/22 service: No Current occupational status: unemployed and disabled Sexual orientation: Straight/Heterosexual Review of Systems Const All systems reviewed & are unremarkable except as noted in HPI and below Eyes Reports no additional complaints ENT Reports no additional complaints Card Denies chest pain, Denies irregular heart rhythm and Denies leg edema Resp Reports as per HPI GI Reports no additional complaints Reports no additional complaints Musc Reports abnormal gait (NEEDS WALKER FOR STABILITY) and Reports back pain Skin/Breast Reports system reviewed and no additional complaints, except as documented Neuro Reports abnormal gait (NEEDS WALKER FOR STABILITY) Psych Reports anxiety, Reports mood swings and Reports other (BIPOLAR DISORDER) Endo Reports no additional complaints Cj/Lymph Reports no additional complaints Physical Exam Vital Signs: Last Vital Signs Pulse 88 08/21/24 15:11 BP 110/70 08/21/24 15:11 Pulse Ox 94 08/21/24 15:11 Oxygen Delivery Method Room Air 08/21/24 15:11 BMI result Body Mass Index 41.4 GROSSLY OBESE, HAS SOME LUMBAR LORDOSIS, WALKS WITH WALKER Const General: comfortable, no acute distress, alert and awake Orientation/consciousness: patient oriented x3 HEENT Head: Yes normal to inspection General nose exam: No nasal polyps present and No nasal discharge present Face and sinus: Yes sinuses nontender Mouth: oropharynx normal Throat: Yes posterior oropharynx normal Eyes General: appearance normal, both eyes and all related structures Neck Neck: Yes normal visual inspection, Yes no lymphadenopathy, Yes trachea midline and Yes no JVD Thyroid: Thyroid normal Chest Chest palpation & inspection: normal inspection of the chest, normal palpation of entire chest wall and no tenderness Resp Other: PERCUSSION NOTE IS RESONANT, BREATH SOUNDS ARE VERY DISTANT ON BOTH SIDES WITH. PROLONGED EXPIRATORY PHASE NO WHEEZES RHONCHI OR CREPITATIONS ARE HEARD. Cardio Palpation: normal PMI Rate: regular rate Rhythm: regular rhythm Heart sounds: no gallops and no murmurs GI Palpation (GI): Soft to palpation, nontender, No hepatosplenomegaly present and no masses Auscultation: normal bowel sounds Back/Spine/Pelvis Thoracic/Lumbar Spine: thoracic and lumbar spine normal to inspection and thoraco-lumbar ROM limited Skin General skin exam: no rashes or lesions noted and other (HAS A POSTTRAUMATIC HEMATOMA ON THE RIGHT LEG) Neuro General: patient oriented x3, No gait normal (REQUIRES WALKER TO AMBULATE) and no focal motor deficits Cranial nerves: Yes CN's II-XII intact bilaterally Extrem General: Yes normal to inspection, Yes no clubbing, cyanosis or edema, Yes no calf tenderness and Yes other (POSTTRAUMATIC HEMATOMA ON THE RIGHT LEG) Psych Appearance: grossly normal and well kempt Speech and movement: Normal speech and movement present Results Reviewed Results Reviewed: O2 SAT AT REST 94%. I MADE HER WALK FOR 4 MINUTES. SHE WALKS QUITE FAST EVEN WITH THE WALKER. THERE WAS NO DROP IN THE O2 SAT IT STAYED AROUND 92-94%. Assessment & Plan Assessment & Plan (1) Obesity hypoventilation syndrome: Comment: SEE BELOW Code(s): E66.2 - Morbid (severe) obesity with alveolar hypoventilation Category: Medical Plan: SEE BELOW (2) COPD (chronic obstructive pulmonary disease): Comment: SEE BELOW Code(s): J44.9 - Chronic obstructive pulmonary disease, unspecified Category: Medical Plan: SEE BELOW (3) Hypercapnic respiratory failure: Comment: SEE BELOW Code(s): J96.92 - Respiratory failure, unspecified with hypercapnia Category: Medical Qualifiers: Chronicity: acute on chronic Qualified Code(s): J96.22 - Acute and chronic respiratory failure with hypercapnia Plan: SEE BELOW (4) Bipolar I disorder: Comment: SEE BELOW Code(s): F31.9 - Bipolar disorder, unspecified Category: Medical Plan: SEE BELOW (5) Smoker: Comment: SEE BELOW Code(s): F17.200 - Nicotine dependence, unspecified, uncomplicated Category: Social Hx Plan: THIS 54 YEARS OLD FEMALE WITH MORBID OBESITY, HEAVY SMOKER, WITH COPD, AND RECURRENT ACUTE ON CHRONIC RESPIRATORY FAILURE. HAS BIPOLAR DISORDER , HAS HAD ADMISSION FOR OVERDOSE AND SUICIDAL IDEATION. SHE HAS TYPICAL FEATURES FOR A PATIENT WITH WOULD HAVE SLEEP APNEA. HOWEVER RECENT SLEEP STUDY RECORDED ONLY AHI OF 4.3 WHICH IS BELOW THE THRESHOLD FOR DIAGNOSIS OF SLEEP APNEA, DID HAVE SOME NOCTURNAL HYPOXEMIA. SHE PROBABLY DOES HAVE SIGNIFICANT HYPOVENTILATION SYNDROME, WITH THE NOCTURNAL HYPOXEMIA AND CO2 RETENTION. HER 3 RECENT HOSPITALIZATION, WERE FOR ACUTE ON CHRONIC RESPIRATORY FAILURE, WITH HYPOXEMIA AND HYPERCAPNIA. SHE RESPONDED WELL TO THE BIPAP , AND OXYGEN THERAPY. AT PRESENT HER MAIN GOAL IS TO GET RID OF OXYGEN. SHE CLAIMS THAT HER RESPIRATORY STATUS IS GOOD. I HAD A LONG DISCUSSION WITH HER. I WANTED TO REPEAT VENOUS BLOOD GAS STUDY BUT SHE WAS IN A HURRY AND DID NOT WANT TO GO FOR THE TEST. AT PRESENT I HAVE TOLD HER THE FOLLOWING: KEEP THE STATIONARY O2 CONCENTRATOR AT HOME, BECAUSE SHE MAY NEED TO USE O2 AT NIGHT, IF SHE FINDS IT INCONVENIENT TO KEEP THE CYLINDERS AT HOME I WILL WRITE A NOTE TO THE O2 SUPPLIER TO REMOVE THE PORTABLE CYLINDERS. CONTINUE USING DUONEB UPDRAFTS Q 6 HOURS WHILE AWAKE ( TID ) USE VENTOLIN. 2 PUFFS Q 4-6 HOURS P.R.N. CONTINUE ADVAIR HFA 115-212 PUFFS B.I.D.. CONTINUE TO USE SPIRIVA HANDIHALER. 1 INHALATION DAILY TRY TO CUT DOWN SMOKING FURTHER, TO 7, 5 THEN 2 AND THEN MAY BE 0 CIGARETTES ( THIS MAY NOT HAPPEN) I WOULD LIKE TO RECHECK HER IN A FEW WEEKS AND, CHECK VENOUS BLOOD GASES, WELL REASSESS HER RESPIRATORY STATUS.. Coding Level of Care Code New Pt Level 4 (19362) Diagnoses Obesity hypoventilation syndrome E66.2 COPD (chronic obstructive pulmonary disease) J44.9 Acute on chronic respiratory failure with hypercapnia J96.22 Chronicity: acute on chronic Bipolar I disorder F31.9 Smoker F17.200
[2024-08-21 15:11] VITALS: BP 110/70; PULSE 88; O2SAT 94; BMI 41.4
== END 2024-08-21 15:38 | disposition home or self-care (01) ==
PROVIDERS: PCP Internal Medicine; Visit Provider Internal Medicine
DX: J44.9 Chronic obstructive pulmonary disease, unspecified (principal); J96.22 Acute and chronic respiratory failure with hypercapnia; E66.2 Morbid (severe) obesity with alveolar hypoventilation; F17.210 Nicotine dependence, cigarettes, uncomplicated; F31.9 Bipolar disorder, unspecified
CPT/HCPCS: 99214

== ENCOUNTER → 2024-08-21 15:02 | Outpatient (BNVA) | payer MEDICAID, SELFPAY | PROVIDERS: Visit Provider Internal Medicine | DX: J44.9 Chronic obstructive pulmonary disease, unspecified (principal); J96.22 Acute and chronic respiratory failure with hypercapnia; E66.2 Morbid (severe) obesity with alveolar hypoventilation; F31.9 Bipolar disorder, unspecified; F17.210 Nicotine dependence, cigarettes, uncomplicated; Z68.41 Body mass index [BMI] 40.0-44.9, adult; Z99.89 Dependence on other enabling machines and devices | CPT/HCPCS: 99212 ==

== ENCOUNTER 2024-08-24 18:22 | Emergency (ER) | payer MEDICAID, SELFPAY ==
[2024-08-24 18:29] VITALS: BP 139/80; BP 150/98; PULSE 100; PULSE 90; RESP 20; TEMP 36.7; O2SAT 83; O2SAT 94; BMI 39.5
--- NOTE | 2024-08-24 18:39 | ED_ITS ---
HPI - General Adult General Chief complaint: Psychiatric Symptoms Stated complaint: SI Time Seen by Provider: 08/24/24 18:39 Source: patient and EMS Mode of arrival: EMS Limitations: no limitations History of Present Illness ED Provider: Dariana Haq PA-C HPI narrative: Patient is a 54 year old assigned female at with a history of COPD (always on supplemental 02) and bipolar disorder presenting to the emergency department today with suicidal ideation. Patient states that over the last week she has had worsening suicidal ideation. Patient states that she has a plan of jumping off of a bridge. Patient denies any dizziness, lightheadedness, abdominal pain, nausea, vomiting, fever, chills, blurry vision, double vision, loss of vision, chest pain, difficulty breathing, shortness of breath, back pain, night sweats, pain with urination, increased urinary frequency, increased urinary urgency, blood in her urine or stool, syncope or a near syncopal episode, recent trauma or falls, bowel incontinence, bladder incontinence, bowel retention, bladder retention, or any other complaints at this time. Relieving factors: none Exacerbating factors: none Associated symptoms: denies other symptoms Treatments prior to arrival: none Related Data Home Medications ?Medication ?Instructions ?Recorded ?Confirmed lithium carbonate 450 mg 450 mg PO TID 05/14/23 08/21/24 tablet,extended release cyanocobalamin (vitamin B-12) 1,000 mcg PO DAILY 06/11/23 08/21/24 1,000 mcg tablet (Vitamin B-12) cetirizine 10 mg tablet 10 mg PO DAILY PRN Allergy Symptoms 12/19/23 08/21/24 melatonin 3 mg tablet 3 mg PO BEDTIME 12/19/23 08/21/24 cholecalciferol (vitamin D3) 25 25 mcg PO DAILY 02/20/24 08/21/24 mcg (1,000 unit) tablet (Vitamin D3) ferrous sulfate 325 mg (65 mg 325 mg PO MOWEFR 05/10/24 08/21/24 iron) tablet fluticasone propionate 115 2 puff inhalation BID Shortness Of 05/10/24 08/21/24 mcg-salmeterol 21 mcg/actuation Breath Or Wheezing HFA inhaler (Advair HFA) pantoprazole 20 mg tablet,delayed 40 mg PO DAILY@0630 05/10/24 08/21/24 release albuterol sulfate 2.5 mg/3 mL 2.5 mg inhalation Q4-6H PRN 06/05/24 08/21/24 (0.083 %) solution for nebulization Shortness Of Breath Or Wheezing gabapentin 400 mg capsule 400 mg PO TID Pain 06/05/24 08/21/24 guaifenesin 100 mg/5 mL oral liquid 200 mg PO Q4-6H PRN Cough 06/05/24 08/21/24 albuterol sulfate 90 mcg/actuation 2 puff inhalation Q4-6H PRN 08/11/24 08/21/24 aerosol inhaler (Ventolin HFA) Shortness Of Breath Or Wheezing furosemide 20 mg tablet 20 mg PO Q OTHER DAY 08/11/24 08/21/24 nystatin 100,000 unit/mL oral 400,000 unit PO QID PRN oral thrush 08/11/24 08/21/24 suspension tiotropium bromide 18 mcg capsule 1 cap inhalation DAILY 08/11/24 08/21/24 with inhalation device (Spiriva with HandiHaler) valacyclovir 1 gram tablet 1,000 mg PO DAILY 08/11/24 08/21/24 (Valtrex) Previous Rx's ?Medication ?Instructions ?Recorded clonidine HCl 0.2 mg tablet 0.2 mg PO BEDTIME #30 tabs 03/22/23 olanzapine 10 mg tablet 10 mg PO BEDTIME #30 tabs 03/22/23 ropinirole 1 mg tablet 1 mg PO BEDTIME #30 tabs 03/22/23 apixaban 5 mg tablet (Eliquis) 5 mg PO BID #60 tabs 05/12/24 Allergies Allergy/AdvReac Type Severity Reaction Status Date / Time aspirin Allergy Mild Anaphylaxis Verified 08/24/24 18:33 ampicillin Allergy Rash Verified 08/24/24 18:33 enoxaparin [From Lovenox] Allergy Anaphylaxis Verified 08/24/24 18:33 Penicillins Allergy Anaphylaxis Verified 08/24/24 18:33 latex AdvReac Rash Verified 08/24/24 18:33 Latex, Natural Rubber AdvReac Rash Verified 08/24/24 18:33 seafood AdvReac Anaphylaxis Verified 08/24/24 18:33 Sulfa (Sulfonamide AdvReac Hives Verified 08/24/24 18:33 Antibiotics) Review of Systems 2 Constitutional: Constitutional: Reports no additional constitutional complaints, Denies chills, Denies fever(s) and Denies night sweats Eyes: Eyes: Reports no additional eye complaints, Denies blurry vision, Denies change in vision, Denies diplopia, Denies eye discharge, Denies loss of vision and Denies eye pain ENT: Denies dizziness Cardiovascular: Cardiovascular: Reports no additional cardiovascular complaints, Denies chest pain, Denies lightheadedness, Denies Loss of Consciousness and Denies dyspnea Respiratory: Respiratory: Reports no additional respiratory complaints and Denies dyspnea Gastrointestinal: Gastrointestinal: Reports no additional gastrointestinal complaints, Denies abdominal pain, Denies melena, Denies hematochezia, Denies change in bowel habits and Denies change in stool character Genitourinary: Genitourinary: Denies hematuria, Denies urinary frequency, Denies dysuria, Denies urinary incontinence, Denies urinary hesitancy and Denies urinary urgency Musculoskeletal: Musculoskeletal: Reports no additional musculoskeletal complaints, Denies numbness and Denies tingling Neurologic: Denies dizziness, Denies loss of vision, Denies numbness and Denies tingling Psychiatric: Psychiatric: Denies homicidal ideation and Reports suicidal ideation Endocrine: Endocrine: Reports no additional endocrine complaints Hematologic/Lymphatic: Hematologic/Lymphatic: Reports no additional hematologic/lymphatic complaints Allergic/Immunologic: Allergic/Immunologic: Reports no additional allergic/immunologic complaints PMF Past Medical History Attestation statement: The following information was validated with the patient. Source: old records reviewed and nursing notes reviewed Medical History Smoker FABIOLA (obstructive sleep apnea) Asthma Morbid obesity Intentional overdose Acute bronchospasm Bipolar I disorder with depression Overdose on Tylenol Suicide attempt Asthma COPD (chronic obstructive pulmonary disease) Chronic lung disease Neoplasm of parotid gland Depression 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 Drug abuse Bipolar I disorder Post traumatic stress disorder (PTSD) Tobacco use disorder Borderline personality disorder Intermittent explosive disorder Asthma exacerbation in COPD Herpes Tobacco use Bipolar disorder COPD (chronic obstructive pulmonary disease) Surgical History History of ankle surgery History of back surgery Hx of cholecystectomy History of appendectomy Family History Family History Mother COPD (chronic obstructive pulmonary disease) Social History Social History Household Members: None Household Members Other:: So Housing: Apartment Housing Other:: Sleeps on the couch at [facility] house Do you presently have visiting nurse or other home services: Yes Unable to assess alcohol history related to: Unknown Alcohol intake: former Comment: patient has 1:1 staffing Patient Tobacco Use Status: Current everyday Tobacco user Tobacco use type: Cigarette Cigarette Packs Per Day: 0.5 Cigarettes Per Day: 3 Years Smoked: 37 e-Cigarette/Vaping Use: Never Used Second Hand Smoke Exposure: Yes Substance Use Type: Crack/Cocaine Advance Directives: Yes Advance Directives on File: Yes Advance Directives Date on File: 06/17/22 Do you have a plan to hurt others: No Plan service: No Current occupational status: unemployed and disabled Sexual orientation: Straight/Heterosexual Physical Exam ED Vital Signs: Vital Signs - 24 hr 08/24/24 18:29 08/24/24 19:02 Temperature 98.0 F Pulse Rate 90 Respiratory Rate 20 Blood Pressure 139/80 Pulse Oximetry 83 L 92 Oxygen Delivery Method Room Air Nasal Cannula Oxygen Flow Rate 3 BMI result Body Mass Index 39.5 Const General: cooperative, no acute distress, alert and awake Nutritional Appearance: well nourished Orientation/consciousness: patient oriented x3 Limitations: no limitations HENMT Head: Yes normal to inspection and Yes atraumatic Ears: hearing grossly normal bilaterally and external ears normal General nose exam: Normal external nose present, no nasal discharge noted and no epistaxis Face and sinus: Yes normal facial exam, No abrasion and No laceration Mouth: Normal oral and palatal mucosa present, no drooling and no muffled voice Eyes General: appearance normal, both eyes and all related structures Periorbital: periorbital findings normal Eyelids: Yes eyelids normal Conjunctivae: conjunctivae normal Pupils: Equal, round and reactive pupils present EOM: EOMs intact bilaterally Neck Neck: Yes normal visual inspection, Yes full ROM and Yes no lymphadenopathy Chest Chest palpation & inspection: normal inspection of the chest Resp Effort & Inspection: normal respiratory effort and able to speak in complete sentences GI Inspection: Yes normal to inspection Neuro General: patient oriented x3 and moves all extremities Cranial nerves: Yes Equal, round and reactive pupils present Cognition (Neuro): normal cognition Extrem General: Yes normal to inspection, Yes full ROM and Yes capillary refill normal Psych Appearance: grossly normal Mental Status: mental status grossly normal Affect: normal affect Attitude: cooperative Thought process: Normal thought process present Thought content: Normal thought content present Insight: Good insight present (Psych) Medical Decision Making Medical Decision Making [facility] Narrative: Patient is a 54 year old assigned female at with a history of COPD (on oxygenation) and bipolar disorder presenting to the emergency department today with suicidal ideation. Patient's physical exam was unremarkable. Patient's blood work was unremarkable. Patient's urine showed a possible UTI but is contaminated - will await culture before initiating treatment. I explained my physical exam findings as well as all test results to the patient. I answered all questions asked by the patient. Patient's disposition is pending CARE team evaluation. Differential Diagnosis Differential Diagnoses: The differential diagnosis associated with the presentation includes SI Admission/Observation Consideration of admission/observation: Escalation of care including admission/observation considered Patient's disposition pending CARE team eval. Lab Data [facility] Lab Attestation statement: I reviewed the patient's lab results. My interpretation of these results are in the [facility] Rationale portion of this note. 08/24/24 19:19 08/24/24 19:19 Labs: Lab Results 08/24/24 08/24/24 Range/Units 18:50 19:19 WBC 12.1 H (4.8-10.8) X10*3/uL RBC 4.84 (4.20-5.50) X10*6/uL Hgb 15.2 (12.0-16.0) g/dl Hct 47.1 H (37.0-47.0) % MCV 97.3 (80.0-98.0) fL MCH 31.4 (27.0-33.0) pg MCHC 32.3 (31.0-35.0) g/dl RDW 13.1 (11.0-16.0) % Plt Count 192 D (160-400) X10*3/uL MPV 10.0 (9.4-12.3) fL Immature Gran % (Auto) 0.5 H (0.0-0.4) % Neut % (Auto) 76.2 H (45-73) % Lymph % (Auto) 17.5 L (20-40) % [place] % (Auto) 4.6 (2-11) % Eos % (Auto) 0.5 (0-4) % Baso % (Auto) 0.7 (0-2) % Lymph # (Auto) 2.1 (1.2-4.9) X10*3/uL [place] # (Auto) 0.6 (0.1-1.2) X10*3/uL Eos # (Auto) 0.1 (0.0-0.4) X10*3/uL Baso # (Auto) 0.1 (0.0-0.2) X10*3/uL Abs Immat Gran (auto) 0.06 H (0.00-0.03) X10*3/uL Absolute Neuts (auto) 9.3 H (2.0-8.3) x10*3/uL Absolute Nucleated RBC 0.000 (0.0-0.012) X10*3/uL Nucleated RBC % (auto) 0.0 (0.0-0.2) /100WBC Sodium 141 (135-145) mmol/L Potassium 4.3 (3.3-5.1) mmol/L Chloride 100 (96-108) mmol/L Carbon Dioxide 31 H (22-29) mmol/L Anion Gap 14 (12-20) BUN 7 L (9-16) mg/dL Creatinine 0.73 (0.5-1.4) mg/dL Estim Creat Clear Calc 112.5 Estimated GFR > 60 Random Glucose 103 (60-115) mg/dL Calcium 10.2 (8.4-10.2) mg/dL Total Bilirubin 0.4 (0.0-1.0) mg/dL AST 44 H (5-31) U/L ALT 24 (0-31) U/L Alkaline Phosphatase 66 (39-117) U/L Total Protein 7.0 (6.5-8.0) g/dL Albumin 4.2 (3.5-5.0) g/dL Urine Color Yellow Urine Appearance Turbid Urine pH 6.5 (5.0-9.0) Ur Specific [place] 1.010 (1.005-1.025) Urine Protein 30 (1+) H (Neg-Trace) mg/dL Urine Glucose (UA) Negative (Negative) mg/dL Urine Ketones Negative (Negative) mg/dL Urine Blood Small (1+) H (Negative) Urine Nitrite Negative (Negative) Ur Leukocyte Esterase Large (3+) H (Negative) Urine RBC 0-2 (0-2) /HPF Urine WBC >50 H (0-5) /HPF Ur Squamous Epith Cells >20 (0-2) /HPF Urine Bacteria 4+ (None Seen) Hyaline Casts 0-2 (0-2) /LPF Urine Test NEGATIVE (NEGATIVE) Salicylates < 5.0 L (15-30) mg/dL Urine Opiates Screen Not Detected (Not Detect) Ur Buprenorphine Scrn Not Detected (Not Detect) ng/mL Ur Oxycodone Screen Not Detected (Not Detect) ng/mL Urine Methadone Screen Not Detected (Not Detect) ng/mL Urine Fentanyl Screen Not Detected (Not Detect) Acetaminophen < 3 (<30) mcg/mL Ur Barbiturates Screen Not Detected (Not Detect) Ur Phencyclidine Scrn Not Detected (Not Detect) Ur Amphetamines Screen Not Detected (Not Detect) U Benzodiazepines Scrn Not Detected (Not Detect) Urine Cocaine Screen POSITIVE H (Not Detect) U Marijuana (THC) Screen Not Detected (Not Detect) Ethyl Alcohol < 10 mg/dL COVID-19 (ENDY) Negative (Negative) COVID-19 Clin Com See Note Independent Historian Clinical information obtained from an independent historian. History obtained from or confirmed by: EMS (EMS provided additional history and confirmed the history provided by the patient.) Discharge Plan Discharge Clinical Impression: Suicidal ideation Patient Disposition: Still a Patient Prescriptions: No Action ropinirole 1 mg Tablet 1 mg PO BEDTIME Qty: 30 0RF olanzapine 10 mg Tablet 10 mg PO BEDTIME Qty: 30 0RF clonidine HCl 0.2 mg Tablet 0.2 mg PO BEDTIME Qty: 30 0RF Protocol: Hold for SBP< HOLD for SBP < : 90 cetirizine 10 mg Tablet 10 mg PO DAILY PRN (Reason: Allergy Symptoms) melatonin 3 mg Tablet 3 mg PO BEDTIME cholecalciferol (vitamin D3) [Vitamin D3] 25 mcg (1,000 unit) tablet 25 mcg PO DAILY ferrous sulfate 325 mg (65 mg iron) Tablet 325 mg PO MOWEFR fluticasone propion-salmeterol [Advair HFA] 115-21 mcg/actuation Hfa Aerosol Inhaler 2 puff INHALATION BID pantoprazole 20 mg Tablet,Delayed Release (Dr/Ec) 40 mg PO DAILY@0630 [facility] 5 mg Tablet 5 mg PO BID Qty: 60 0RF lithium carbonate 450 mg tablet extended release 450 mg PO TID cyanocobalamin (vitamin B-12) [Vitamin B-12] 1,000 mcg tablet 1,000 mcg PO DAILY albuterol sulfate 2.5 mg /3 mL (0.083 %) Solution For Nebulization 2.5 mg INHALATION Q4-6H PRN (Reason: Shortness Of Breath Or Wheezing) gabapentin 400 mg Capsule 400 mg PO TID guaifenesin 100 mg/5 mL Liquid 200 mg PO Q4-6H PRN (Reason: Cough) valacyclovir [Valtrex] 1 gram Tablet 1,000 mg PO DAILY furosemide 20 mg Tablet 20 mg PO Q OTHER DAY albuterol sulfate [Ventolin HFA] 90 mcg/actuation Hfa Aerosol Inhaler 2 puff INHALATION Q4-6H PRN (Reason: Shortness Of Breath Or Wheezing) tiotropium bromide [Spiriva with HandiHaler] 18 mcg Capsule, W/Inhalation Device 1 cap INHALATION DAILY Rx Instructions: puncture 1 cap using device; one dose = 2 inhalations nystatin 100,000 unit/mL suspension 400,000 unit PO QID PRN (Reason: oral thrush) Print Language: Kiswahili
--- NOTE | 2024-08-24 18:40 | ECG_ITS ---
Test Reason : med clearance Blood Pressure : / mmHG Vent. Rate : 084 BPM Atrial Rate : 084 BPM P-R Int : 150 ms QRS Dur : 086 ms QT Int : 390 ms P-R-T Axes : 051 062 040 degrees QTc Int : 460 ms Poor data quality, interpretation may be adversely affected Normal sinus rhythm Normal ECG When compared with ECG of 14-AUG-2024 23:33, No significant change was found Referred By: Dariana Haq Electronically Signed By:Deangelo Gutierres
--- NOTE | 2024-08-24 18:51 | PC.NURSE ---
Pt. is 83% on RA. She is O2 dependent at baseline. Not suitable to be in pod on O2 d/t ligature risk. Main ED software tools engineer notified and awaiting room transfer.
--- NOTE | 2024-08-24 18:59 | PC.NURSE ---
Patient is a 1:1 with oxygen at 3 liters spo2 is now 92% per 3L n/c
[2024-08-24 19:02] VITALS: O2SAT 92
[2024-08-24 19:02] LABS: Appearance Urine Turbid; Color Urine Yellow; Glucose Urine UA Negative (Negative); Leukocyte Esterase Urine Large (3+) (Negative); Nitrite Urine Negative (Negative); PH 6.5 (5.0-9.0); UMIC TRIGGER UA YES; Urine Blood Small (1+) (Negative); Urine Ketones Negative (Negative); Urine Protein 30 (1+) mg/dL (Neg-Trace)
--- NOTE | 2024-08-24 19:02 | MHC.EDTECH ---
Patient came to the [place] [id number] With Oxygen, got place change roof bolter, got the urine sample done, we put her back to oxygen 3L.
[2024-08-24 19:08] LABS: Amphetamine Screen Urine Not Detected (Not Detect); Barbiturates, Urine Not Detected (Not Detect); Benzodiazepines Screen Urine Not Detected (Not Detect); Buprenorphine Scr Not Detected (Not Detect); Cannabinoid Screen Urine Not Detected (Not Detect); Cocaine Screen Urine POSITIVE (Not Detect); Fentanyl, urine Not Detected (Not Detect); Methadone Screen, Urine Not Detected (Not Detect); Opiate Screen Urine Not Detected (Not Detect); Oxycodone Screen Urine Not Detected (Not Detect); Phencyclidine Screen Urine Not Detected (Not Detect)
[2024-08-24 19:17] LABS: Bacteria Urine 4+ (None Seen); Hyaline Casts Urine 0-2 /LPF (0-2); RBC Urine 0-2 /HPF (0-2); Squamous Epithelial Cell Urine >20 /HPF (0-2); WBC Urine >50 /HPF (0-5)
[2024-08-24 19:25] LABS: MANUAL DIFF FLAG NO
[2024-08-24 19:25] LABS: UPreg QC Valid YES; Urine Pregnancy NEGATIVE (NEGATIVE)
[2024-08-24 19:27] LABS: Basophils Absolute Auto 0.1 X10*3/uL (0.0-0.2); Basophils Percent Auto 0.7 % (0-2); Eosinophils Absolute Auto 0.1 X10*3/uL (0.0-0.4); Eosinophils Percent Auto 0.5 % (0-4); Hematocrit 47.1 % (37.0-47.0); Hemoglobin 15.2 g/dl (12.0-16.0); Imm Gran Abs Auto 0.06 X10*3/uL (0.00-0.03); Imm Gran Pct Auto 0.5 % (0.0-0.4); Lymphocytes Absolute Auto 2.1 X10*3/uL (1.2-4.9); Lymphocytes Percent Auto 17.5 % (20-40); Mean Corpuscular HGB Conc 32.3 g/dl (31.0-35.0); Mean Corpuscular Hemoglobin 31.4 pg (27.0-33.0); Mean Corpuscular Volume 97.3 fL (80.0-98.0); Monocytes Absolute Auto 0.6 X10*3/uL (0.1-1.2); Monocytes Percent Auto 4.6 % (2-11); Neutrophils Absolute Auto 9.3 x10*3/uL (2.0-8.3); Neutrophils Percent Auto 76.2 % (45-73); Platelet Count 192 X10*3/uL (160-400); Red Blood Count 4.84 X10*6/uL (4.20-5.50); Red Cell Distribution Width 13.1 % (11.0-16.0); White Blood Count 12.1 X10*3/uL (4.8-10.8)
[2024-08-24 19:39] LABS: COVID-19 Test Negative (Negative); IDNOW Serial# 58CA691E
[2024-08-24 19:43] LABS: Acetaminophen LAB < 3 mcg/mL (<30); Alanine Aminotransferase 24 U/L (0-31); Albumin Level 4.2 g/dL (3.5-5.0); Alkaline Phosphatase 66 U/L (39-117); Anion Gap 14 (12-20); Aspartate Amino Transferase 44 U/L (5-31); Bilirubin Total 0.4 mg/dL (0.0-1.0); Blood Urea Nitrogen 7 mg/dL (9-16); Calcium 10.2 mg/dL (8.4-10.2); Carbon Dioxide 31 mmol/L (22-29); Chloride 100 mmol/L (96-108); Creatinine Clr Calc Pharmacy 112.5; Estimated Glomerular Filt Rate > 60; Ethanol < 10 mg/dL; Glucose Random 103 mg/dL (60-115); Potassium 4.3 mmol/L (3.3-5.1); Salicylate < 5.0 mg/dL (15-30); Sodium 141 mmol/L (135-145)
--- NOTE | 2024-08-24 20:58 | MHC.EDTECH ---
t/w approached pt to obtain lithium lab, pt refused and stated I don't want to be poked again. RN AWARE.
--- NOTE | 2024-08-24 21:32 | PHA.MEDREC ---
Addendum entered by Urmila Ayoub RPh 08/24/24 21:45: transferred to ED Addendum entered by Urmila Ayoub RPh 08/24/24 21:44: Pt reports to RN I take a lot of meds and nothing has changed Original Note: Pharmacy Consult ? Medication Reconciliation Pharmacy has completed the medication reconciliation. Spoke with nurse in POD and they were not able to get any info from the patient and [facility] in [place] where the patient goes was closed. I utilized a Discharge Packet from 08/12 and confirmed patients medications with that.
[2024-08-24 23:22] VITALS: BP 151/77; PULSE 81; RESP 16; TEMP 36.5; O2SAT 95
[2024-08-25] VITALS (10 sets, daily range): BP systolic 99–136; BP diastolic 62–77; PULSE 67–86; RESP 16–23; TEMP 36.4–36.8; O2SAT 81–95
--- NOTE | 2024-08-25 03:22 | PC.NURSE ---
Took over care at 3:00am from MELONY toro, pt sleeping at this time.
--- NOTE | 2024-08-25 06:43 | PC.NURSE ---
pt sleeping at this time, no sign of distress.
[2024-08-25 07:08] LABS: Lithium 0.84 mmol/L (0.60-1.20)
--- NOTE | 2024-08-25 07:28 | PC.NURSE ---
pt now awake sitting upright in bed. remains on 3L via NC (baseline) - SPO2 @ 90%. otherwise vss and up to date. per CARE team, pt remains an IPLOC bed search. no beds available at this time. when speaking w/ pt, pt states i am suicidal and depressed honey. i have been feeling like this for a week now. i feel so alone. when asking pt if she has a plan, she states that she would jump off of a bridge if she had the opportunity. pt sitting upright eating breakfast via safety tray. 1:1 sitter bedside. no sob/wob noted. respirations even/unlabored. plan of care ongoing.
--- NOTE | 2024-08-25 08:12 | PC.NURSE ---
pt noted to be @ 82% with good read on 3L via NC while asleep. pt woken up, turned, repositioned - SPO2 increased to 91% on 3L via NC. NC increased to 5L while asleep. 1:1 sitter remains bedside.
[2024-08-25] MEDS: Tiotropium Bromide 2.5 mcg 1 PUFF/2.5 MCG MIST.INHAL 2 PUFF INHALE (08:24)
[2024-08-25] MEDS: Fluticasone/Vilanterol 100/25 BLST.W.DEV 1 PUFF INHALE (08:24)
[2024-08-25] MEDS: Cyanocobalamin (Vitamin B-12) 1,000 MCG TABLET 1000 MCG PO (08:27)
[2024-08-25] MEDS: Apixaban 5 MG TABLET PO ×2 (08:27→21:27)
[2024-08-25] MEDS: Cholecalciferol (Vitamin D3) 25 MCG TABLET PO (08:27)
[2024-08-25] MEDS: valACYclovir HCL 1,000 MG TABLET 1000 MG PO (08:27)
[2024-08-25] MEDS: Lithium Carbonate ER 450 MG TABLET.ER PO ×3 (08:27→21:26)
[2024-08-25] MEDS: Furosemide 20 MG TABLET PO (08:27)
[2024-08-25] MEDS: Gabapentin 400 MG CAPSULE PO ×3 (08:28→21:27)
--- NOTE | 2024-08-25 08:29 | PC.NURSE ---
RT called bedside to place pt on CPAP as pt continues to desat on 3L-5L via NC/other interventions. medication administered per provider order prior to being placed on CPAP. pt now on CPAP at this time. resting in no apparent distress. no sob/wob noted. respirations remain even/unlabored. plan of care ongoing.
--- NOTE | 2024-08-25 13:07 | PC.NURSE ---
pt taken off of cpap at she is no longer asleep. pt placed back on 3L via NC. SPO2 @ 91%. otherwise vss and up to date. pt denies pain. has no complaints. no sob/wob noted. 1:1 sitter remains present.
--- NOTE | 2024-08-25 13:45 | PC.NURSE ---
pt placed back on CPAP as she continues to fall asleep. SPO2 fluctuating between 81%-86% on CPAP @ 6L. RT notified/aware. states they will be down shortly to transition her to bipap. plan of care ongoing.
--- NOTE | 2024-08-25 16:02 | PC.NURSE ---
offered shower to pt but she declined at this time. pt provided w/ fresh hospital attire, sheets, blankets, wipes to wash herself, etc. 1:1 sitter remains bedside.
--- NOTE | 2024-08-25 18:26 | PC.NURSE ---
underwear/bra being washed in the pod.
[2024-08-25] MEDS: OLANZapine 10 MG TABLET PO (21:26)
[2024-08-25] MEDS: Melatonin 3 MG TABLET PO (21:27)
[2024-08-25] MEDS: rOPINIRole HCL 1 MG TABLET PO (21:27)
[2024-08-25] MEDS: cloNIDine HCL 0.2 MG TABLET PO (21:31)
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
[2024-08-26 00:41] VITALS: BP 95/59; PULSE 69; RESP 14; TEMP 36.8; O2SAT 93
--- NOTE | 2024-08-26 03:45 | PC.NURSE ---
pt appears to be sleeping, equal, non labored respirations. SpO2 noted to be 82% on 3L via NC. Pt does not want to wear cpap at this time. SpO2 improved to 92% with reposition. Plan of care ongoing.
[2024-08-26 05:53] VITALS: BP 113/65; PULSE 87; RESP 20; TEMP 36.8; O2SAT 93
[2024-08-26 05:56] VITALS: PULSE 83; O2SAT 94
[2024-08-26] MEDS: Pantoprazole Sodium 20 MG TABLET.DR 40 MG PO (06:46)
--- NOTE | 2024-08-26 09:13 | PC.NURSE ---
patient observer remains at the bedside for patient safety. appears to be resting in room at this time w/out signs/symptoms of distress noted.
[2024-08-26] MEDS: Apixaban 5 MG TABLET PO (09:35)
[2024-08-26] MEDS: Cyanocobalamin (Vitamin B-12) 1,000 MCG TABLET 1000 MCG PO (09:35)
[2024-08-26] MEDS: Gabapentin 400 MG CAPSULE PO (09:35)
[2024-08-26] MEDS: Lithium Carbonate ER 450 MG TABLET.ER PO (09:35)
[2024-08-26] MEDS: Cholecalciferol (Vitamin D3) 25 MCG TABLET PO (09:35)
[2024-08-26] MEDS: valACYclovir HCL 1,000 MG TABLET 1000 MG PO (09:35)
[2024-08-26 10:31] VITALS: PULSE 87; RESP 20; O2SAT 92
[2024-08-26] MEDS: Tiotropium Bromide 2.5 mcg 1 PUFF/2.5 MCG MIST.INHAL 2 PUFF INHALE (10:31)
[2024-08-26] MEDS: Fluticasone/Vilanterol 100/25 BLST.W.DEV 1 PUFF INHALE (10:31)
[2024-08-26] MEDS: Albuterol Sulfate (0.083%) 2.5 MG/3 ML VIAL.NEB INHALE (10:37)
[2024-08-26 13:20] VITALS: BP 113/65; PULSE 87; RESP 20; TEMP 36.8; O2SAT 94
--- NOTE | 2024-08-26 13:45 | MHC.CARE ---
Pt has been placed on alert with [facility] and a 3day follow up has been requested. The 3 day follow up has been activated.
== END 2024-08-26 13:21 | disposition home or self-care (01) ==
PROVIDERS: Physician Assistant Medical; Emergency Provider Emergency Medicine; PCP Internal Medicine
DX: R45.851 Suicidal ideations (principal); F32.A Depression, unspecified; F43.10 Post-traumatic stress disorder, unspecified; F14.10 Cocaine abuse, uncomplicated; F19.10 Other psychoactive substance abuse, uncomplicated; F17.210 Nicotine dependence, cigarettes, uncomplicated; J44.9 Chronic obstructive pulmonary disease, unspecified; G47.33 Obstructive sleep apnea (adult) (pediatric); Z99.81 Dependence on supplemental oxygen; Z99.89 Dependence on other enabling machines and devices; Z79.899 Other long term (current) drug therapy
CPT/HCPCS: 36415; 80053; 80143; 80178; 80179; 80307; 81001; 81003; 81025; 85025; 87635; 93005; 94640; 99285; S9485

== ENCOUNTER → 2024-08-24 18:40 | Outpatient (BNV) | payer MEDICAID, SELFPAY | PROVIDERS: Emergency Provider Emergency Medicine; PCP Internal Medicine; Visit Provider Internal Medicine Cardiovascular Disease | DX: Z51.81 Encounter for therapeutic drug level monitoring (principal) | CPT/HCPCS: 93010 ==

== ENCOUNTER 2024-09-01 01:51 | Emergency (ER) | payer MEDICAID, SELFPAY ==
[2024-09-01 01:55] VITALS: BP 116/78; BP 120/62; PULSE 91; PULSE 99; RESP 18; TEMP 37.1; O2SAT 94; BMI 38.7
--- NOTE | 2024-09-01 02:55 | MHC.EDTECH ---
Belongings in C1
--- NOTE | 2024-09-01 03:16 | ED.PSYCH ---
HPI - Psych General Chief Complaint: Psychiatric Symptoms Stated Complaint: SI w/ plan jump [place] bridge, [place] no plan Time Seen by Provider: 09/01/24 02:43 Source: patient Mode of arrival: EMS Limitations: no limitations History of Present Illness ED Provider: david ROBLERO Narrative: Patient with COPD chronic hypercapnic respiratory failure on home oxygen smoker cocaine user bipolar disorder with history of depression been here multiple times for suicidal ideation comes here with similar reasons said that is her neighbors are bothering her feels suicidal with to jump from the bridge similar to that in the past did cocaine 2 hours prior to arrival no chest pain no shortness a breath Related Data Home Medications ?Medication ?Instructions ?Recorded ?Confirmed lithium carbonate 450 mg 450 mg PO TID 05/14/23 08/24/24 tablet,extended release cyanocobalamin (vitamin B-12) 1,000 mcg PO DAILY 06/11/23 08/24/24 1,000 mcg tablet (Vitamin B-12) cetirizine 10 mg tablet 10 mg PO DAILY PRN Allergy Symptoms 12/19/23 08/24/24 melatonin 3 mg tablet 3 mg PO BEDTIME 12/19/23 08/24/24 cholecalciferol (vitamin D3) 25 25 mcg PO DAILY 02/20/24 08/24/24 mcg (1,000 unit) tablet (Vitamin D3) ferrous sulfate 325 mg (65 mg 325 mg PO MOWEFR 05/10/24 08/24/24 iron) tablet fluticasone propionate 115 2 puff inhalation BID Shortness Of 05/10/24 08/24/24 mcg-salmeterol 21 mcg/actuation Breath Or Wheezing HFA inhaler (Advair HFA) pantoprazole 20 mg tablet,delayed 40 mg PO DAILY@0630 05/10/24 08/24/24 release albuterol sulfate 2.5 mg/3 mL 2.5 mg inhalation Q4-6H PRN 06/05/24 08/24/24 (0.083 %) solution for nebulization Shortness Of Breath Or Wheezing gabapentin 400 mg capsule 400 mg PO TID Pain 06/05/24 08/24/24 guaifenesin 100 mg/5 mL oral liquid 200 mg PO Q4-6H PRN Cough 06/05/24 08/24/24 albuterol sulfate 90 mcg/actuation 2 puff inhalation Q4-6H PRN 08/11/24 08/24/24 aerosol inhaler (Ventolin HFA) Shortness Of Breath Or Wheezing furosemide 20 mg tablet 20 mg PO Q OTHER DAY 08/11/24 08/24/24 nystatin 100,000 unit/mL oral 400,000 unit PO QID PRN oral thrush 08/11/24 08/24/24 suspension tiotropium bromide 18 mcg capsule 1 cap inhalation DAILY 08/11/24 08/24/24 with inhalation device (Spiriva with HandiHaler) valacyclovir 1 gram tablet 1,000 mg PO DAILY 08/11/24 08/24/24 (Valtrex) Previous Rx's ?Medication ?Instructions ?Recorded clonidine HCl 0.2 mg tablet 0.2 mg PO BEDTIME #30 tabs 03/22/23 olanzapine 10 mg tablet 10 mg PO BEDTIME #30 tabs 03/22/23 ropinirole 1 mg tablet 1 mg PO BEDTIME #30 tabs 03/22/23 apixaban 5 mg tablet (Eliquis) 5 mg PO BID #60 tabs 05/12/24 Allergies Allergy/AdvReac Type Severity Reaction Status Date / Time aspirin Allergy Mild Anaphylaxis Verified 09/01/24 01:58 ampicillin Allergy Rash Verified 09/01/24 01:58 enoxaparin [From Lovenox] Allergy Anaphylaxis Verified 09/01/24 01:58 Penicillins Allergy Anaphylaxis Verified 09/01/24 01:58 latex AdvReac Rash Verified 09/01/24 01:58 Latex, Natural Rubber AdvReac Rash Verified 09/01/24 01:58 seafood AdvReac Anaphylaxis Verified 09/01/24 01:58 Sulfa (Sulfonamide AdvReac Hives Verified 09/01/24 01:58 Antibiotics) Review of Systems Review of Systems: Yes all other systems are reviewed and are negative PMFSH Past Medical History Medical History Smoker FABIOLA (obstructive sleep apnea) Asthma Morbid obesity Intentional overdose Acute bronchospasm Bipolar I disorder with depression Overdose on Tylenol Suicide attempt Asthma COPD (chronic obstructive pulmonary disease) Chronic lung disease Neoplasm of parotid gland Depression 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 Drug abuse Bipolar I disorder Post traumatic stress disorder (PTSD) Tobacco use disorder Borderline personality disorder Intermittent explosive disorder Asthma exacerbation in COPD Herpes Tobacco use Bipolar disorder COPD (chronic obstructive pulmonary disease) Surgical History History of ankle surgery History of back surgery Hx of cholecystectomy History of appendectomy Family History Family History Mother COPD (chronic obstructive pulmonary disease) Social History Social History Household Members: None Household Members Other:: So Housing: Apartment Housing Other:: Sleeps on the couch at [facility] house Do you presently have visiting nurse or other home services: Yes Unable to assess alcohol history related to: Unknown Alcohol intake: former Comment: patient has 1:1 staffing Patient Tobacco Use Status: Current everyday Tobacco user Tobacco use type: Cigarette Cigarette Packs Per Day: 0.5 Cigarettes Per Day: 3 Years Smoked: 37 Smoked in Last 30 Days: Yes e-Cigarette/Vaping Use: Never Used Second Hand Smoke Exposure: Yes Use of substances other than those prescribed or required for medical reasons: Yes Substance Use Type: Crack/Cocaine Substance Use Frequency: Chronic Longstanding Last Used Substance: Just Prior to Admission Advance Directives: Yes Advance Directives on File: Yes Advance Directives Date on File: 06/17/22 Do you have a plan to hurt others: No Plan Patient : No service: No Current occupational status: unemployed and disabled Sexual orientation: Straight/Heterosexual Physical Exam Vital Signs: Vital Signs: Last Vital Signs Temp 98.8 F 09/01/24 01:55 Pulse 86 09/01/24 06:25 Resp 20 09/01/24 06:25 BP 105/60 09/01/24 06:25 Pulse Ox 95 09/01/24 06:25 O2 Del Method Nasal Cannula 09/01/24 06:25 O2 Flow Rate 3 09/01/24 06:25 Oxygen Flow Rate 3 09/01/24 01:55 BMI result Body Mass Index 38.7 Appearance: Alert. Oriented X3. No acute distress. Eyes: No pallor or icterus ENT: Pharynx normal. Oral Mucosa moist Neck: Normal inspection. Neck supple. CVS: Normal heart rate and rhythm. Pulses normal. Respiratory: No respiratory distress. Equal air entry bilateral, no wheezing/rales/rhonchi Abdomen: Soft and nontender. Bowel sounds are present, no mass palpable, no CVA tenderness Skin: Skin warm and dry. Normal skin color. Normal skin turgor. Extremities: No lower extremity edema. No calf tenderness psych: Depressed feels suicidal no plan at this time Neuro: Oriented X 3. No motor deficit. No sensory deficit.No cerebellar signs , cranial nerves II-XII intact Medical Decision Making Medical Decision Making MDM Narrative: Patient's depression with suicidal feeling will get care team evaluation Discharge Plan Discharge Clinical Impression: Depression with suicidal ideation, Bipolar disorder Patient Disposition: Still a Patient Prescriptions: No Action ropinirole 1 mg Tablet 1 mg PO BEDTIME Qty: 30 0RF olanzapine 10 mg Tablet 10 mg PO BEDTIME Qty: 30 0RF clonidine HCl 0.2 mg Tablet 0.2 mg PO BEDTIME Qty: 30 0RF Protocol: Hold for SBP< HOLD for SBP < : 90 cetirizine 10 mg Tablet 10 mg PO DAILY PRN (Reason: Allergy Symptoms) melatonin 3 mg Tablet 3 mg PO BEDTIME cholecalciferol (vitamin D3) [Vitamin D3] 25 mcg (1,000 unit) tablet 25 mcg PO DAILY ferrous sulfate 325 mg (65 mg iron) Tablet 325 mg PO MOWEFR fluticasone propion-salmeterol [Advair HFA] 115-21 mcg/actuation Hfa Aerosol Inhaler 2 puff INHALATION BID pantoprazole 20 mg Tablet,Delayed Release (Dr/Ec) 40 mg PO DAILY@0630 Eliquis 5 mg Tablet 5 mg PO BID Qty: 60 0RF lithium carbonate 450 mg tablet extended release 450 mg PO TID cyanocobalamin (vitamin B-12) [Vitamin B-12] 1,000 mcg tablet 1,000 mcg PO DAILY albuterol sulfate 2.5 mg /3 mL (0.083 %) Solution For Nebulization 2.5 mg INHALATION Q4-6H PRN (Reason: Shortness Of Breath Or Wheezing) gabapentin 400 mg Capsule 400 mg PO TID guaifenesin 100 mg/5 mL Liquid 200 mg PO Q4-6H PRN (Reason: Cough) valacyclovir [Valtrex] 1 gram Tablet 1,000 mg PO DAILY furosemide 20 mg Tablet 20 mg PO Q OTHER DAY albuterol sulfate [Ventolin HFA] 90 mcg/actuation Hfa Aerosol Inhaler 2 puff INHALATION Q4-6H PRN (Reason: Shortness Of Breath Or Wheezing) tiotropium bromide [Spiriva with HandiHaler] 18 mcg Capsule, W/Inhalation Device 1 cap INHALATION DAILY Rx Instructions: puncture 1 cap using device; one dose = 2 inhalations nystatin 100,000 unit/mL suspension 400,000 unit PO QID PRN (Reason: oral thrush) Interventions: [place]-Suicide Risk Severity Scale Last Done: 09/01/24 02:00 Print Language: Macedonian
--- NOTE | 2024-09-01 05:59 | PC.NURSE ---
Patient sleeping comfortably on the stretcher bed, , awaiting care team evaluation. no signs/symptoms of distress noted.
[2024-09-01 06:25] VITALS: BP 105/60; PULSE 86; RESP 20; O2SAT 95
--- NOTE | 2024-09-01 07:22 | PC.NURSE ---
this nurse took over patient care at 7am from nunu, pt currently sleeping, has 1:1 sitter at bedside, On 3L NC baseline for COPD, spoke with PA currently on as the patient has no labs or urine ordered, pt needs care team consult and should have these performed prior to consult. Pt endorsed SI/HI upon her arrival to the ED.
[2024-09-01 07:57] LABS: MANUAL DIFF FLAG NO
--- NOTE | 2024-09-01 07:59 | PC.NURSE ---
labs drawn/urine obtained by tech
--- NOTE | 2024-09-01 08:02 | PC.NURSE ---
med req called pharmacy to have med req completed
[2024-09-01 08:09] LABS: Appearance Urine Turbid; Basophils Absolute Auto 0.1 X10*3/uL (0.0-0.2); Basophils Percent Auto 0.6 % (0-2); Color Urine Dark Yellow; Eosinophils Absolute Auto 0.1 X10*3/uL (0.0-0.4); Eosinophils Percent Auto 0.8 % (0-4); Glucose Urine UA Negative (Negative); Hematocrit 44.6 % (37.0-47.0); Hemoglobin 14.2 g/dl (12.0-16.0); Imm Gran Abs Auto 0.04 X10*3/uL (0.00-0.03); Imm Gran Pct Auto 0.4 % (0.0-0.4); Leukocyte Esterase Urine Large (3+) (Negative); Lymphocytes Absolute Auto 1.8 X10*3/uL (1.2-4.9); Lymphocytes Percent Auto 18.6 % (20-40); Mean Corpuscular HGB Conc 31.8 g/dl (31.0-35.0); Mean Corpuscular Hemoglobin 31.6 pg (27.0-33.0); Mean Corpuscular Volume 99.3 fL (80.0-98.0); Mean Platelet Volume 9.9 fL (9.4-12.3); Monocytes Absolute Auto 0.8 X10*3/uL (0.1-1.2); Monocytes Percent Auto 8.2 % (2-11); Neutrophils Absolute Auto 6.8 x10*3/uL (2.0-8.3); Neutrophils Percent Auto 71.4 % (45-73); Nitrite Urine Negative (Negative); PH 6.5 (5.0-9.0); Platelet Count 227 X10*3/uL (160-400); Red Blood Count 4.49 X10*6/uL (4.20-5.50); Red Cell Distribution Width 13.2 % (11.0-16.0); Specific Gravity - Urine 1.015 (1.005-1.025); UMIC TRIGGER UACC YES; Urine Blood Large (3+) (Negative); Urine Ketones Negative (Negative); Urine Protein 300 (3+) mg/dL (Neg-Trace); White Blood Count 9.6 X10*3/uL (4.8-10.8)
[2024-09-01 08:15] LABS: Amphetamine Screen Urine Not Detected (Not Detect); Barbiturates, Urine Not Detected (Not Detect); Benzodiazepines Screen Urine Not Detected (Not Detect); Buprenorphine Scr Not Detected (Not Detect); Cannabinoid Screen Urine Not Detected (Not Detect); Cocaine Screen Urine POSITIVE (Not Detect); Fentanyl, urine Not Detected (Not Detect); Methadone Screen, Urine Not Detected (Not Detect); Opiate Screen Urine Not Detected (Not Detect); Oxycodone Screen Urine Not Detected (Not Detect); Phencyclidine Screen Urine Not Detected (Not Detect)
[2024-09-01 08:23] LABS: Alanine Aminotransferase 17 U/L (0-31); Albumin Level 3.8 g/dL (3.5-5.0); Alkaline Phosphatase 67 U/L (39-117); Anion Gap 11 (12-20); Aspartate Amino Transferase 49 U/L (5-31); Bilirubin Total 0.8 mg/dL (0.0-1.0); Blood Urea Nitrogen 10 mg/dL (9-16); Calcium 9.4 mg/dL (8.4-10.2); Carbon Dioxide 31 mmol/L (22-29); Chloride 103 mmol/L (96-108); Creatinine Clr Calc Pharmacy 135.4; Estimated Glomerular Filt Rate > 60; Ethanol < 10 mg/dL; Glucose Random 92 mg/dL (60-115); Potassium 4.1 mmol/L (3.3-5.1); Sodium 141 mmol/L (135-145); Total Protein 6.2 g/dL (6.5-8.0)
[2024-09-01 08:28] LABS: Bacteria Urine 4+ (None Seen); Hyaline Casts Urine 0-2 /LPF (0-2); Squamous Epithelial Cell Urine >20 /HPF (0-2); UACC Culture Trigger YES; WBC Urine >50 /HPF (0-5)
--- NOTE | 2024-09-01 10:06 | PHA.MEDREC ---
Pharmacy Consult ? Medication Reconciliation Pharmacy has completed the medication reconciliation. Patient fills at [facility] and they are closed on the weekend. Med rec completed by pharmacy on 08/11 and 08/24. Use previous med rec notes/discharge packets for med and will contact [facility] on Tuesday AM to confirm all meds.
[2024-09-01 13:32] VITALS: BP 109/60; PULSE 76; RESP 20; TEMP 36.3; O2SAT 93
--- NOTE | 2024-09-01 13:35 | PC.NURSE ---
patient sleeping, woke to verbal stimulus, vss, pt stating she is SI, care team has not been in to see patient. 1:1 sitter at bedside, call castillo within reach, will continue to monitor
--- NOTE | 2024-09-01 15:39 | MHC.CARE ---
CARE Team attempted to meet with this Pt for an evaluation. Would not wake up for T/W or patient observer to appropriately engage in this process.
--- NOTE | 2024-09-01 21:10 | PC.NURSE ---
This RN assumed care of pt at 1900, pt in bed eyes closed, RR even, unlabored, snoring. o2 via nasal cannula in place. Pt arousable, sitter at bedside.
[2024-09-02] VITALS (9 sets, daily range): BP systolic 99–119; BP diastolic 57–65; PULSE 80–90; RESP 18–22; TEMP 36.8; O2SAT 90–94
--- NOTE | 2024-09-02 01:05 | PC.NURSE ---
Pt reporting 10/10 pain in bilateral lower extremities and difficulty ambulating. made aware, no new orders at this time.
--- NOTE | 2024-09-02 03:38 | MHC.EDTECH ---
Bedding change done and Pt cleaned due to being incontient of urine. Vital signs taken
--- NOTE | 2024-09-02 06:35 | PC.NURSE ---
Pt in bed resting, eyes closed, snoring, breathing even and unlabored. This RN requested MD order pt medications. Medications not ordered at this time.
--- NOTE | 2024-09-02 06:46 | PC.NURSE ---
t/w spoke with about pt home meds being ordered. will order
--- NOTE | 2024-09-02 07:24 | PC.NURSE ---
Patient requesting pain medication. Spoke with who stated that medications were just ordered, but okay to give Gabapentin & Tylenol as ordered. Gabapentin to be given now despite originally scheduled time of 9am today, per .
[2024-09-02] MEDS: Gabapentin 400 MG CAPSULE PO (07:30)
[2024-09-02] MEDS: Acetaminophen 325 MG TABLET 975 MG PO (07:31)
[2024-09-02] MEDS: Albuterol/Iprat 2.5/0.5MG 3 ML AMPUL.NEB INHALE ×2 (07:45→11:37)
[2024-09-02] MEDS: valACYclovir HCL 1,000 MG TABLET 1000 MG PO (09:47)
[2024-09-02] MEDS: Furosemide 20 MG TABLET PO (09:48)
[2024-09-02] MEDS: Cholecalciferol (Vitamin D3) 25 MCG TABLET PO (09:48)
[2024-09-02] MEDS: Cyanocobalamin (Vitamin B-12) 1,000 MCG TABLET 1000 MCG PO (09:48)
[2024-09-02] MEDS: Apixaban 5 MG TABLET PO (09:48)
[2024-09-02] MEDS: Lithium Carbonate ER 450 MG TABLET.ER PO (09:48)
== END 2024-09-02 15:08 | disposition home or self-care (01) ==
PROVIDERS: Physician Assistant; Emergency Provider Internal Medicine
DX: F31.9 Bipolar disorder, unspecified (principal); R45.851 Suicidal ideations; F19.10 Other psychoactive substance abuse, uncomplicated; F14.10 Cocaine abuse, uncomplicated; F17.210 Nicotine dependence, cigarettes, uncomplicated; F60.3 Borderline personality disorder; F43.10 Post-traumatic stress disorder, unspecified; J96.92 Respiratory failure, unspecified with hypercapnia; J44.9 Chronic obstructive pulmonary disease, unspecified; Z99.81 Dependence on supplemental oxygen; Z91.51 Personal history of suicidal behavior; Z86.711 Personal history of pulmonary embolism; Z79.899 Other long term (current) drug therapy; Z79.01 Long term (current) use of anticoagulants
CPT/HCPCS: 36415; 80053; 80307; 81001; 81003; 85025; 87086; 94640; 99285; S9485

== ENCOUNTER 2024-09-10 02:51 | Emergency (ER) | payer MEDICAID, SELFPAY ==
[2024-09-10] VITALS (19 sets, daily range): BP systolic 110–161; BP diastolic 59–98; PULSE 77–90; RESP 14–26; TEMP 36.3–36.8; O2SAT 86–98; BMI 38.7
--- NOTE | 2024-09-10 | ECG_ITS ---
Test Reason : sob Blood Pressure : / mmHG Vent. Rate : 083 BPM Atrial Rate : 083 BPM P-R Int : 146 ms QRS Dur : 086 ms QT Int : 386 ms P-R-T Axes : 028 037 032 degrees QTc Int : 453 ms Normal sinus rhythm Possible Left atrial enlargement Low voltage QRS Borderline ECG When compared with ECG of 24-AUG-2024 20:37, No significant change was found Referred By: Generic ED Physician Electronically Signed By:Deangelo Gutierres
--- NOTE | ~2024-09-10 | XR_ITS ---
EXAMINATION: XR CHEST CLINICAL INFORMATION: Shortness of breath. COMPARISON: August 10, 2024. TECHNIQUE: Frontal view of the chest was obtained. FINDINGS: The lung volumes are low. The cardiomediastinal silhouette is within normal limits and stable. There is lower lung field increased markings similar to previous. There is no focal lung consolidation or pleural effusions. The bony structures and the soft tissues are unremarkable. XR/XR chest 1V IMPRESSION: Low lung volumes. No acute cardiopulmonary process. Electronically signed by: Mansoor Sethi MD 09/10/2024 03:48 AM [facility]
[2024-09-10 03:24] LABS: MANUAL DIFF FLAG NO
[2024-09-10 03:26] LABS: Basophils Absolute Auto 0.1 X10*3/uL (0.0-0.2); Basophils Percent Auto 0.8 % (0-2); Eosinophils Absolute Auto 0.2 X10*3/uL (0.0-0.4); Eosinophils Percent Auto 2.2 % (0-4); Hematocrit 46.5 % (37.0-47.0); Hemoglobin 14.5 g/dl (12.0-16.0); Imm Gran Abs Auto 0.04 X10*3/uL (0.00-0.03); Imm Gran Pct Auto 0.5 % (0.0-0.4); Lymphocytes Absolute Auto 1.9 X10*3/uL (1.2-4.9); Lymphocytes Percent Auto 22.9 % (20-40); Mean Corpuscular HGB Conc 31.2 g/dl (31.0-35.0); Mean Corpuscular Hemoglobin 31.9 pg (27.0-33.0); Mean Corpuscular Volume 102.4 fL (80.0-98.0); Mean Platelet Volume 11.6 fL (9.4-12.3); Monocytes Absolute Auto 0.5 X10*3/uL (0.1-1.2); Monocytes Percent Auto 6.2 % (2-11); Neutrophils Absolute Auto 5.6 x10*3/uL (2.0-8.3); Neutrophils Percent Auto 67.4 % (45-73); Platelet Count 241 X10*3/uL (160-400); Red Blood Count 4.54 X10*6/uL (4.20-5.50); Red Cell Distribution Width 13.8 % (11.0-16.0); White Blood Count 8.3 X10*3/uL (4.8-10.8)
[2024-09-10] MEDS: Albuterol Sulfate (0.083%) 2.5 MG/3 ML VIAL.NEB 5 MG INHALE (03:27)
[2024-09-10 03:28] LABS: Venous Blood Gas Refer to POC result
[2024-09-10 03:29] LABS: VBG Base Excess 8.3 mmol/L; VBG HCO3 33 mmol/L (22-26); VBG pCO2 47 mmHg; VBG pH 7.45 (7.32-7.43); VBG pO2 147 mmHg
[2024-09-10] MEDS: predniSONE 20 MG TABLET 60 MG PO (03:32)
--- NOTE | 2024-09-10 03:40 | ED_ITS ---
HPI - SOB/Dyspnea General Chief Complaint: Dyspnea Stated Complaint: diff breathing x2 hours Time Seen by Provider: 09/10/24 03:14 Source: patient Mode of arrival: EMS Limitations: no limitations History of Present Illness ED Provider: david ROBLERO Narrative: Patient's history of COPD bipolar disorder depression PTSD been here multiple times on home oxygen 3 liters/minute noticed increased shortness a breath after smoking cigarettes denied any use of cocaine also complaining of suicidal feeling and wants to talk to care team Related Data Home Medications ?Medication ?Instructions ?Recorded ?Confirmed lithium carbonate 450 mg 450 mg PO TID 05/14/23 09/01/24 tablet,extended release cyanocobalamin (vitamin B-12) 1,000 mcg PO DAILY 06/11/23 09/01/24 1,000 mcg tablet (Vitamin B-12) cetirizine 10 mg tablet 10 mg PO DAILY PRN Allergy Symptoms 12/19/23 09/01/24 melatonin 3 mg tablet 3 mg PO BEDTIME 12/19/23 09/01/24 cholecalciferol (vitamin D3) 25 25 mcg PO DAILY 02/20/24 09/01/24 mcg (1,000 unit) tablet (Vitamin D3) ferrous sulfate 325 mg (65 mg 325 mg PO MOWEFR@0900 05/10/24 09/01/24 iron) tablet fluticasone propionate 115 2 puff inhalation BID Shortness Of 05/10/24 09/01/24 mcg-salmeterol 21 mcg/actuation Breath Or Wheezing HFA inhaler (Advair HFA) pantoprazole 20 mg tablet,delayed 40 mg PO DAILY@0630 05/10/24 09/01/24 release albuterol sulfate 2.5 mg/3 mL 2.5 mg inhalation Q4-6H PRN 06/05/24 09/01/24 (0.083 %) solution for nebulization Shortness Of Breath Or Wheezing gabapentin 400 mg capsule 400 mg PO TID Pain 06/05/24 09/01/24 guaifenesin 100 mg/5 mL oral liquid 200 mg PO Q4-6H PRN Cough 06/05/24 09/01/24 albuterol sulfate 90 mcg/actuation 2 puff inhalation Q4-6H PRN 08/11/24 09/01/24 aerosol inhaler (Ventolin HFA) Shortness Of Breath Or Wheezing furosemide 20 mg tablet 20 mg PO Q2D 08/11/24 09/01/24 nystatin 100,000 unit/mL oral 400,000 unit PO QID PRN oral thrush 08/11/24 09/01/24 suspension tiotropium bromide 18 mcg capsule 1 cap inhalation DAILY 08/11/24 09/01/24 with inhalation device (Spiriva with HandiHaler) valacyclovir 1 gram tablet 1,000 mg PO DAILY 08/11/24 09/01/24 (Valtrex) ipratropium 0.5 mg-albuterol 3 mg 3 ml inhalation QID 09/01/24 09/01/24 (2.5 mg base)/3 mL nebulization soln Previous Rx's ?Medication ?Instructions ?Recorded clonidine HCl 0.2 mg tablet 0.2 mg PO BEDTIME #30 tabs 03/22/23 olanzapine 10 mg tablet 10 mg PO BEDTIME #30 tabs 03/22/23 ropinirole 1 mg tablet 1 mg PO BEDTIME #30 tabs 03/22/23 apixaban 5 mg tablet (Eliquis) 5 mg PO BID #60 tabs 05/12/24 Allergies Allergy/AdvReac Type Severity Reaction Status Date / Time aspirin Allergy Mild Anaphylaxis Verified 09/10/24 03:06 ampicillin Allergy Rash Verified 09/10/24 03:06 enoxaparin [From Lovenox] Allergy Anaphylaxis Verified 09/10/24 03:06 Penicillins Allergy Anaphylaxis Verified 09/10/24 03:06 latex AdvReac Rash Verified 09/10/24 03:06 Latex, Natural Rubber AdvReac Rash Verified 09/10/24 03:06 seafood AdvReac Anaphylaxis Verified 09/10/24 03:06 Sulfa (Sulfonamide AdvReac Hives Verified 09/10/24 03:06 Antibiotics) Review of Systems 2 Review of Systems: Yes all other systems are reviewed and are negative PMFSH Past Medical History Medical History Smoker FABIOLA (obstructive sleep apnea) Asthma Morbid obesity Intentional overdose Acute bronchospasm Bipolar I disorder with depression Overdose on Tylenol Suicide attempt Asthma COPD (chronic obstructive pulmonary disease) Chronic lung disease Neoplasm of parotid gland Depression 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 Drug abuse Bipolar I disorder Post traumatic stress disorder (PTSD) Tobacco use disorder Borderline personality disorder Intermittent explosive disorder Asthma exacerbation in COPD Herpes Tobacco use Bipolar disorder COPD (chronic obstructive pulmonary disease) Surgical History History of ankle surgery History of back surgery Hx of cholecystectomy History of appendectomy Family History Family History Mother COPD (chronic obstructive pulmonary disease) Social History Social History Household Members: None Household Members Other:: So Housing: Apartment Housing Other:: Sleeps on the couch at [facility] house Do you presently have visiting nurse or other home services: Yes Unable to assess alcohol history related to: Unknown Alcohol intake: former Comment: patient has 1:1 staffing Patient Tobacco Use Status: Current everyday Tobacco user Tobacco use type: Cigarette Cigarette Packs Per Day: 0.5 Cigarettes Per Day: 3 Years Smoked: 37 Smoked in Last 30 Days: Yes e-Cigarette/Vaping Use: Never Used Second Hand Smoke Exposure: Yes Use of substances other than those prescribed or required for medical reasons: No Substance Use Type: Crack/Cocaine Advance Directives: Yes Advance Directives on File: Yes Advance Directives Date on File: 06/17/22 Do you have a plan to hurt others: No Plan service: No Current occupational status: unemployed and disabled Sexual orientation: Straight/Heterosexual Physical Exam 2 Vital Signs: Vital Signs: Last Vital Signs Temp 98.2 F 09/10/24 06:12 Pulse 90 09/10/24 06:12 Resp 14 09/10/24 06:12 BP 161/96 H 09/10/24 06:12 Pulse Ox 90 L 09/10/24 06:54 O2 Del Method Oxymask 09/10/24 06:54 O2 Flow Rate 3 09/10/24 06:54 BMI result Body Mass Index 38.7 Appearance: Alert. Oriented X3. No acute distress. Eyes: PERRLA, No Nystagmus ENT: Pharynx normal. Oral Mucosa moist Neck: Normal inspection. Neck supple. CVS: Normal heart rate and rhythm. Pulses normal. Respiratory: Mild respiratory distress with bilateral wheezing. Equal air entry bilateral, Abdomen: Soft and nontender. Bowel sounds are present, no mass palpable, no CVA tenderness Skin: Skin warm and dry. Normal skin color. Normal skin turgor. Extremities: 1+ lower extremity edema. No calf tenderness Psych: Depressed claims suicidal with no plan Neuro: Oriented X 3. No motor deficit. Medications Administered Discontinued Medications Generic Name Dose Route Start Last Admin Trade Name Jacob PRN Reason Stop Dose Admin Albuterol Sulfate 5 mg 09/10/24 03:19 09/10/24 03:27 Albuterol Sulfate (0.083%) 2.5 Mg/3 Ml Vial.Neb INHALE 09/10/24 03:20 5 mg ONCE ONE Administration Prednisone 60 mg 09/10/24 03:19 09/10/24 03:32 Prednisone 20 Mg Tablet PO 09/10/24 03:20 60 mg ONCE ONE Administration Medical Decision Making Medical Decision Making [facility] Narrative: Patient's depression asthma came with suicidal feeling and shortness a breath improved during stay in the ER will consult care team for depression and suicidal feeling Lab Data [facility] Lab Attestation statement: I reviewed the patient's lab results. 09/10/24 03:19 09/10/24 04:22 Labs: Lab Results 09/10/24 09/10/24 09/10/24 Range/Units 03:19 03:24 04:22 WBC 8.3 (4.8-10.8) X10*3/uL RBC 4.54 (4.20-5.50) X10*6/uL Hgb 14.5 (12.0-16.0) g/dl Hct 46.5 (37.0-47.0) % MCV 102.4 H (80.0-98.0) fL MCH 31.9 (27.0-33.0) pg MCHC 31.2 (31.0-35.0) g/dl RDW 13.8 (11.0-16.0) % Plt Count 241 (160-400) X10*3/uL MPV 11.6 (9.4-12.3) fL Immature Gran % (Auto) 0.5 H (0.0-0.4) % Neut % (Auto) 67.4 (45-73) % Lymph % (Auto) 22.9 (20-40) % [place] % (Auto) 6.2 (2-11) % Eos % (Auto) 2.2 (0-4) % Baso % (Auto) 0.8 (0-2) % Lymph # (Auto) 1.9 (1.2-4.9) X10*3/uL [place] # (Auto) 0.5 (0.1-1.2) X10*3/uL Eos # (Auto) 0.2 (0.0-0.4) X10*3/uL Baso # (Auto) 0.1 (0.0-0.2) X10*3/uL Abs Immat Gran (auto) 0.04 H (0.00-0.03) X10*3/uL Absolute Neuts (auto) 5.6 (2.0-8.3) x10*3/uL Absolute Nucleated RBC 0.000 (0.0-0.012) X10*3/uL Nucleated RBC % (auto) 0.0 (0.0-0.2) /100WBC VBG pH 7.45 H (7.32-7.43) VBG pCO2 47 mmHg VBG pO2 147 mmHg VBG HCO3 33 H (22-26) mmol/L VBG O2 Saturation 99.0 % VBG Base Excess 8.3 mmol/L Sodium Cancelled 141 Potassium Cancelled 4.5 Chloride Cancelled 103 Carbon Dioxide Cancelled 28 Anion Gap Cancelled 15 BUN Cancelled 5 L Creatinine Cancelled 0.61 Estim Creat Clear Calc Cancelled 133.2 Estimated GFR Cancelled > 60 Random Glucose Cancelled 118 H Calcium Cancelled 9.6 Total Bilirubin Cancelled 0.2 AST Cancelled 19 ALT Cancelled 17 Alkaline Phosphatase Cancelled 60 Troponin I High Sens < 2.7 (<3.5-17.0) ng/L Total Protein Cancelled 6.8 Albumin Cancelled 4.1 Discharge Plan Discharge Clinical Impression: Asthma with exacerbation, COPD (chronic obstructive pulmonary disease) Patient Disposition: Still a Patient Prescriptions: No Action ropinirole 1 mg Tablet 1 mg PO BEDTIME Qty: 30 0RF olanzapine 10 mg Tablet 10 mg PO BEDTIME Qty: 30 0RF clonidine HCl 0.2 mg Tablet 0.2 mg PO BEDTIME Qty: 30 0RF Protocol: Hold for SBP< HOLD for SBP < : 90 cetirizine 10 mg Tablet 10 mg PO DAILY PRN (Reason: Allergy Symptoms) melatonin 3 mg Tablet 3 mg PO BEDTIME cholecalciferol (vitamin D3) [Vitamin D3] 25 mcg (1,000 unit) tablet 25 mcg PO DAILY ferrous sulfate 325 mg (65 mg iron) Tablet 325 mg PO MOWEFR@0900 fluticasone propion-salmeterol [Advair HFA] 115-21 mcg/actuation Hfa Aerosol Inhaler 2 puff INHALATION BID pantoprazole 20 mg Tablet,Delayed Release (Dr/Ec) 40 mg PO DAILY@0630 Eliquis 5 mg Tablet 5 mg PO BID Qty: 60 0RF ipratropium-albuterol [DuoNeb] 0.5 mg-3 mg(2.5 mg base)/3 mL Solution For Nebulization 3 ml INHALATION QID lithium carbonate 450 mg tablet extended release 450 mg PO TID cyanocobalamin (vitamin B-12) [Vitamin B-12] 1,000 mcg tablet 1,000 mcg PO DAILY albuterol sulfate 2.5 mg /3 mL (0.083 %) Solution For Nebulization 2.5 mg INHALATION Q4-6H PRN (Reason: Shortness Of Breath Or Wheezing) gabapentin 400 mg Capsule 400 mg PO TID guaifenesin 100 mg/5 mL Liquid 200 mg PO Q4-6H PRN (Reason: Cough) valacyclovir [Valtrex] 1 gram Tablet 1,000 mg PO DAILY furosemide 20 mg Tablet 20 mg PO Q2D albuterol sulfate [Ventolin HFA] 90 mcg/actuation Hfa Aerosol Inhaler 2 puff INHALATION Q4-6H PRN (Reason: Shortness Of Breath Or Wheezing) tiotropium bromide [Spiriva with HandiHaler] 18 mcg Capsule, W/Inhalation Device 1 cap INHALATION DAILY Rx Instructions: puncture 1 cap using device; one dose = 2 inhalations nystatin 100,000 unit/mL suspension 400,000 unit PO QID PRN (Reason: oral thrush) Print Language: Mexican
[2024-09-10 03:52] LABS: Troponin-I High Sensitivity < 2.7 ng/L (<3.5-17.0)
--- NOTE | 2024-09-10 04:07 | PC.NURSE ---
pt changed to ligature risk hospital attire and belongings secured by security. pt reports si. tank charger aware for need for 1:1 sitter.
[2024-09-10 04:45] LABS: Alanine Aminotransferase 17 U/L (0-31); Albumin Level 4.1 g/dL (3.5-5.0); Anion Gap 15 (12-20); Aspartate Amino Transferase 19 U/L (5-31); Bilirubin Total 0.2 mg/dL (0.0-1.0); Blood Urea Nitrogen 5 mg/dL (9-16); Calcium 9.6 mg/dL (8.4-10.2); Carbon Dioxide 28 mmol/L (22-29); Chloride 103 mmol/L (96-108); Creatinine Clr Calc Pharmacy 133.2; Estimated Glomerular Filt Rate > 60; Glucose Random 118 mg/dL (60-115); Potassium 4.5 mmol/L (3.3-5.1); Sodium 141 mmol/L (135-145); Total Protein 6.8 g/dL (6.5-8.0)
[2024-09-10 05:03] LABS: Alkaline Phosphatase 60 U/L (39-117)
[2024-09-10 07:59] LABS: ABG HCO3 38 mmol/L (22-26); ABG pH 7.24 (7.35-7.45); ABG pO2 59 mmHg (83-108)
[2024-09-10] MEDS: Lidocaine HCl 1 % MPF 5 ML VIAL INFILTRATI (08:15)
--- NOTE | 2024-09-10 08:15 | PC.NURSE ---
Care of Pt assumed at change of shift. Pt ins resting comfortably on stretcher however this RN was alerted by 1:1 that Pt was not sating well. Sats noted to be 86% and Pt was difficulty to arouse. Sternal rub applied with good result however Pt unable to maintain adequate O2 level. RT called to Pts bedside and Pt was moved into ED4 ABG obtained, 20g U/S guided IV placed by Dr. Seals and Pt placed on Bipap. Bipap settings: 15/5 at 35%; rate 18
[2024-09-10] MEDS: methylPREDNISolone Sod Succ 125 MG/2 ML VIAL IVPUSH (08:31)
[2024-09-10 10:12] LABS: ABG Base Excess 10.9 mmol/L; ABG HCO3 41 mmol/L (22-26); ABG pH 7.29 (7.35-7.45); ABG pO2 64 mmHg (83-108)
[2024-09-10] MEDS: 0.9 % Sodium Chloride 1,000 ML 999 ML IVCONT (10:50)
[2024-09-10 11:05] LABS: ABG Refer to POC result
[2024-09-10 11:05] LABS: ABG Refer to POC result
[2024-09-10 12:03] LABS: ABG Base Excess 9.1 mmol/L; ABG HCO3 39 mmol/L (22-26); ABG pH 7.29 (7.35-7.45); ABG pO2 59 mmHg (83-108)
[2024-09-10 12:06] LABS: Amphetamine Screen Urine Not Detected (Not Detect); Barbiturates, Urine Not Detected (Not Detect); Benzodiazepines Screen Urine Not Detected (Not Detect); Buprenorphine Scr Not Detected (Not Detect); Cannabinoid Screen Urine Not Detected (Not Detect); Cocaine Screen Urine Not Detected (Not Detect); Fentanyl, urine Not Detected (Not Detect); Methadone Screen, Urine Not Detected (Not Detect); Opiate Screen Urine Not Detected (Not Detect); Oxycodone Screen Urine Not Detected (Not Detect); Phencyclidine Screen Urine Not Detected (Not Detect)
--- NOTE | 2024-09-10 12:41 | PC.NURSE ---
Pt resting comfortably on stretcher. 1:[address] use[address] Seals in process of organizing transportation to [facility].
[2024-09-10 15:16] LABS: ABG Base Excess 8.7 mmol/L; ABG HCO3 38 mmol/L (22-26); ABG pCO2 78 mmHg (32-45); ABG pO2 60 mmHg (83-108)
--- NOTE | 2024-09-10 15:59 | PC.NURSE ---
Call placed to [facility] Jr Wallace @ [phone]. Spoke with MELONY Leong to given RN to RN report. Dang given the opportunity for question; all questions answered to satisfaction. Awaiting ambulance arrival for transport.
--- NOTE | 2024-09-10 16:48 | PC.NURSE ---
Pt being transported to [facility] via [facility]. RN report given to EMS at time of arrival; all questions answered to satisfaction. Care of Pt relinquished to [facility].
[2024-09-11 10:32] LABS: ABG pCO2 88 mmHg (32-45)
[2024-09-11 10:33] LABS: ABG pCO2 81 mmHg (32-45)
[2024-09-11 10:33] LABS: ABG pCO2 84 mmHg (32-45)
== END 2024-09-10 16:51 | disposition short-term general hospital (02) ==
PROVIDERS: Internal Medicine; Emergency Provider Emergency Medicine
DX: J44.9 Chronic obstructive pulmonary disease, unspecified (principal); R06.02 Shortness of breath; R94.31 Abnormal electrocardiogram [ECG] [EKG]; R45.851 Suicidal ideations; Z99.81 Dependence on supplemental oxygen; F17.210 Nicotine dependence, cigarettes, uncomplicated; Z79.899 Other long term (current) drug therapy
CPT/HCPCS: 36415; 71045; 80053; 80307; 82803; 84484; 85025; 93005; 94640; 96374; 99284; 99285; J2003; J2919

== ENCOUNTER → 2024-09-10 03:12 | Outpatient (BNV) | payer MEDICAID, SELFPAY | PROVIDERS: Emergency Provider Emergency Medicine; Visit Provider Internal Medicine Cardiovascular Disease | DX: R06.02 Shortness of breath (principal) | CPT/HCPCS: 93010 ==